=== PATIENT | female | born 1960 | race Caucasian/White ===

== ENCOUNTER → 2017-09-06 10:43 | Outpatient (CLI) | payer MEDICARE, SELFPAY ==
[2017-09-06 13:12] LABS: Absolute Lymphocyte Count 1.59 X10^3/ul (0.83-4.51); Absolute Neutrophil Count 5.7 X10^3/uL (2.0-7.7); Basophil# 0.02 X10^3/uL; Basophil% 0.3 % (0-1); Eosinophil# 0.03 X10^3/uL; Eosinophils% 0.4 % (0-5); Hematocrit 39.4 % (37-47); Hemoglobin 11.4 g/dl (12.0-15.0); Lymphocyte # 1.59 X10^3/ul (4.0); Lymphocyte % 20.2 % (19-41); Mean Corp Hgb Conc 28.9 g/gl (32-36); Mean Corpuscular Hgb 21.2 pg (27.0-32.0); Mean Corpuscular Volume 73.1 fL (81-99); Mean Platelet Vol. 10.4 fl (6.2-12.0); Monocyte# 0.58 X10^3/uL; Monocyte% 7.4 % (0-10); Neutrophil # 5.65 X10^3/uL (2.7-7.7); Neutrophil % 71.4 % (47-70); Platelet Count 316 K/mm3 (150-450); RBC Distribution Width CV 18.9 % (11.6-14.6); RBC Distribution Width SD 49.1 fl (35.1-43.9); Red Blood Count 5.39 M/mm3 (4.2-5.4); White Blood Count 7.9 K/mm3 (4.4-11.0)
[2017-09-06 13:15] LABS: Differential Indicated SCAN CRITERIA MET; POSITIVE COUNT NO; POSITIVE DIFFERENTIAL NO; POSITIVE MORPHOLOGY YES
[2017-09-06 13:25] LABS: Vitamin D,25 Hydroxy 23.6 ng/mL (19.95-100.01)
[2017-09-06 13:30] LABS: ALB/GLOB Ratio 0.9 RATIO (0.9-2.4); AST(SGOT) 12 U/L (15-37); Alanine Aminotransfer ALT/SGPT 27 U/L (13-56); Albumin, Serum 3.6 g/dL (3.2-5.0); Alkaline Phosphatase 100 U/L (45-117); Anion Gap 8 (5-15); BUN 11 mg/dL (7-18); BUN/Creat Ratio 18.1 RATIO (10-20); Calcium,Total 8.8 mg/dL (8.5-10.1); Chloride 104 mmol/L (98-107); Creatinine, Serum 0.61 mg/dL (0.55-1.02); EST Glomerular Filtration Rate 108 mL/min (>60); Est Glom Filt Rate - Afr Amer 131 mL/min (>60); Globulin 3.9 g/dL (2.2-4.2); Glucose 89 mg/dL (74-106); Potassium 4.3 mmol/L (3.5-5.1); Protein, Total 7.5 g/dL (6.4-8.2); Sodium Level 139 mmol/L (136-145); Thyroid Stim Hormone (TSH) 1.12 uIU/mL (0.358-3.74)
[2017-09-06 13:40] LABS: Microcytosis 1+; Polychromasia RARE
[2017-09-08 08:51] LABS: Hep C Antibodies <0.1 s/co ratio (0.0-0.9)
== END ==
PROVIDERS: Family Provider Family Medicine Geriatric Medicine; PCP Family Medicine Geriatric Medicine; Visit Provider Family Medicine Geriatric Medicine
DX: E11.9 Type 2 diabetes mellitus without complications (principal); I10 Essential (primary) hypertension; E55.9 Vitamin D deficiency, unspecified; Z13.89 Encounter for screening for other disorder
CPT/HCPCS: 36415; 80053; 82306; 84443; 85025; 86803

== ENCOUNTER → 2017-12-05 13:53 | Outpatient (CLI) | payer MEDICARE, SELFPAY ==
[2017-12-05 17:02] LABS: Absolute Lymphocyte Count 0.96 X10^3/ul (0.83-4.51); Absolute Neutrophil Count 9.8 X10^3/uL (2.0-7.7); Basophil# 0.01 X10^3/uL; Basophil% 0.1 % (0-1); Eosinophil# 0.02 X10^3/uL; Eosinophils% 0.2 % (0-5); Hematocrit 35.5 % (37-47); Lymphocyte # 0.96 X10^3/ul (4.0); Lymphocyte % 8.5 % (19-41); Mean Corp Hgb Conc 28.2 g/gl (32-36); Mean Corpuscular Hgb 20.1 pg (27.0-32.0); Mean Corpuscular Volume 71.3 fL (81-99); Monocyte# 0.57 X10^3/uL; Neutrophil # 9.75 X10^3/uL (2.7-7.7); Neutrophil % 86.1 % (47-70); Platelet Count 192 K/mm3 (150-450); RBC Distribution Width CV 18.9 % (11.6-14.6); RBC Distribution Width SD 49.8 fl (35.1-43.9); Red Blood Count 4.98 M/mm3 (4.2-5.4); White Blood Count 11.3 K/mm3 (4.4-11.0)
[2017-12-05 17:03] LABS: Differential Indicated SCAN CRITERIA MET; Mean Platelet Vol. 10.9 fl (6.2-12.0); POSITIVE COUNT NO; POSITIVE DIFFERENTIAL NO; POSITIVE MORPHOLOGY YES
[2017-12-05 17:19] LABS: ALB/GLOB Ratio 1.1 RATIO (0.9-2.4); AST(SGOT) 19 U/L (15-37); Alanine Aminotransfer ALT/SGPT 35 U/L (13-56); Albumin, Serum 3.6 g/dL (3.2-5.0); Alkaline Phosphatase 80 U/L (45-117); Anion Gap 10 (5-15); BUN 12 mg/dL (7-18); BUN/Creat Ratio 18.6 RATIO (10-20); Calcium,Total 8.6 mg/dL (8.5-10.1); Chloride 107 mmol/L (98-107); Creatinine, Serum 0.65 mg/dL (0.55-1.02); EST Glomerular Filtration Rate 101 mL/min (>60); Est Glom Filt Rate - Afr Amer 122 mL/min (>60); Globulin 3.4 g/dL (2.2-4.2); Glucose 111 mg/dL (74-106); Potassium 3.8 mmol/L (3.5-5.1); Sodium Level 141 mmol/L (136-145); Thyroid Stim Hormone (TSH) 0.52 uIU/mL (0.358-3.74)
[2017-12-05 17:29] LABS: Differential Comment SCANNED
== END ==
PROVIDERS: Family Provider Family Medicine Geriatric Medicine; PCP Family Medicine Geriatric Medicine; Visit Provider Family Medicine Geriatric Medicine
DX: E11.9 Type 2 diabetes mellitus without complications (principal); I10 Essential (primary) hypertension
CPT/HCPCS: 36415; 80053; 84443; 85025

== ENCOUNTER 2017-12-11 15:02 | Emergency (ER) | payer MEDICARE, SELFPAY ==
[2017-12-11 15:03] VITALS: BP 112/58; PULSE 88; PULSE 91; RESP 18; TEMP 37.4; O2SAT 94; O2SAT 96; BMI 31.8
--- NOTE | 2017-12-11 15:34 | RAD_ITS ---
STUDY: X-RAY - UNILATERAL RIBS ( RIGHT ) WITH CHEST REASON FOR EXAM: Female, 57 years old. Right flank pain after falling. TECHNIQUE - RIBS: 4 view(s) of the ribs. TECHNIQUE - CHEST: 1 view COMPARISON: Prior chest radiograph of July 27, 2016 and July 25, 2016 FINDINGS - RIBS: Normal visualized ribs without a demonstrated acute fracture. FINDINGS - CHEST: The lungs are clear and expanded. There is no demonstrated pleural abnormality. Normal size heart. Normal mediastinum and danita. Normal visualized pulmonary arteries. There is atherosclerotic calcification of the aortic arch with tortuosity. Old right humeral neck fracture deformity. There is no demonstrated abnormality of the visualized soft tissue structures of the upper abdomen. RAD/Ribs Uni Min 3V w/PA Chest IMPRESSION: RIBS: No acute rib fracture. Old right humeral neck fracture deformity. CHEST: No acute cardiopulmonary findings or changes. Electronically Signed: Gabby Paniagua MD at 16:27 EDT , Service support ,
--- NOTE | 2017-12-11 15:34 | CT_ITS ---
STUDY: CT CERVICAL SPINE WITHOUT CONTRAST REASON FOR EXAM: Female, 57 years old. Falling injury hitting the back of the head. RADIATION DOSAGE (If Supplied By Facility): CTDIvol = ( 29.54 ) mGy, DLP = ( 557.40 ) mGycm TECHNIQUE: High resolution transaxial imaging was performed without contrast material. Sagittal and coronal images were reconstructed. Individualized dose optimization techniques were used for this CT. COMPARISON: Prior cervical CT exam of March 17, 2016. FINDINGS: Normal craniovertebral junction. Normal anterior atlantoaxial articulation. Normal odontoid process. Normal cervical lordosis. Normal vertebral bodies and posterior osseous elements. C2-3: Minor degenerative disc and joint changes. Slight central disc bulge. Negative for spinal stenosis or foraminal narrowing. C3-4: Mild disc narrowing and uncovertebral arthrosis. Negative for central stenosis. Mild bilateral foraminal narrowing. C4-5: Minor degenerative disc and joint changes without central stenosis. Mild foraminal narrowing on the right. C5-6: Mild degenerative disc and joint changes. Negative for central stenosis. Mild foraminal narrowing on the right. C6-7: Minor degenerative disc and joint changes without substantial foraminal narrowing or central stenosis. C7-T1: Normal endplates. Normal disc height and morphology. Normal central canal and intervertebral neuroforamina. Prior fracture of the medial right clavicle. CT/Spine Cervical without Contras IMPRESSION: Normal alignment of the cervical spine without acute fracture deformity. Degenerative disc and joint changes as described above. Electronically Signed: Gabby Paniagua MD at 16:44 EDT , Service support ,
--- NOTE | 2017-12-11 15:34 | CT_ITS ---
STUDY: CT BRAIN WITHOUT CONTRAST REASON FOR EXAM: Female, 57 years old. The patient fell and hit the back of her head. RADIATION DOSAGE (If Supplied By Facility): CTDIvol = ( 60.81 ) mGy, DLP = ( 1112.69 ) mGycm TECHNIQUE: Transaxial CT imaging of the brain was performed without administration of intravenous contrast material. Individualized dose optimization techniques were used for this CT. COMPARISON: Prior brain CT exam of July 25, 2016 FINDINGS: Normal soft tissue structures. Normal calvarium. Normal size ventricles and extra-axial spaces for the patient's age. 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 Normal basal ganglia and thalami. Normal brainstem. Normal cerebellum. There is no intracranial hemorrhage. There are no findings of an acute ischemic infarction. Normal visualized paranasal sinuses. CT/Brain/Head without Contrast IMPRESSION: No acute intracranial findings. Negative for hemorrhage, hematoma or mass density. Stable medial left parietal infarct. Electronically Signed: Gabby Paniagua MD at 16:36 EDT , Service support ,
--- NOTE | 2017-12-11 15:40 | ED.DCSUM_ITS ---
- ER Visit Summary Date of Service: 12/11/17 Chief Complaint: Fall History of Present Illness: The patient is a 57 F who fell prior to arrival. 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 She was getting out of a car and fell in the parking lot secondary to weakness. She is not sure if she lost consciousness, but she does remember everything leading up to the fall. She remembers someone telling her to be still while she was laying on the ground. She complains of pain to the back of her head and her neck. She also points of right-sided rib pain. Denies any other associated symptoms. She does take aspirin and Plavix. Physical Examination: Afebrile and vital signs unremarkable. Patient is alert and oriented and in no acute distress. Head and neck have a normal inspection. She does have occipital tenderness diffusely and neck tenderness diffusely. Head otherwise atraumatic. Lungs clear. Heart regular. Abdomen soft and nontender. She does have some right lateral chest wall tenderness. No crepitus or abnormal motion noted. Extremities atraumatic. She has chronic right-sided weakness at baseline per patient and no new weakness or sensory changes on exam. Test Results: CT head and neck pending. Chest x-ray and rib series pending. Emergency Department Course and Treatment: Declined pain medicine while awaiting results. Rib and chest x-ray showed no acute abnormalities. Nothing new. CT head and neck showed nothing new. Just chronic changes. Patient did have increasing pain and was treated with [place] while awaiting results. No other imaging or diagnostic studies are indicated. The patient will be discharged. Rest, ice, elevate. Anti-inflammatories and home pain medications. Follow-up with primary care. Return for any new or worsening issues. Treatment Plan: As above Disposition: Discharged Impression: 1. Closed head injury 2. Cervical strain 3. Chest wall pain right side This note was generated with [employer] dictation software. It may contain incorrect words, spelling, and punctuation that were not noted in review of the chart prior to signing ED Disposition - Plan for ED Patient: Chief Complaint: Fall Referrals: Ruddy Brandt Chi, MD [Primary Care Provider] -
--- NOTE | 2017-12-11 17:01 | ED.DEP ---
ED Disposition - Plan for ED Patient: Chief Complaint: Fall Instructions: ED Mechanical Fall Referrals: Ruddy Brandt Chi, MD [Primary Care Provider] -
[2017-12-11] MEDS: HYDROcodone Bitartrate/Apap 5/325 Tablet PO (17:17)
[2017-12-11 17:18] VITALS: BP 118/66; PULSE 84; PULSE 88; RESP 18; O2SAT 93
== END 2017-12-11 17:49 | disposition home or self-care (01) ==
PROVIDERS: Emergency Provider Emergency Medicine; Family Provider Family Medicine Geriatric Medicine; PCP Family Medicine Geriatric Medicine
DX: S09.90XA Unspecified injury of head, initial encounter (principal); W18.39XA Other fall on same level, initial encounter; Y93.89 Activity, other specified; Y92.481 Parking lot as the place of occurrence of the external cause; S16.1XXA Strain of muscle, fascia and tendon at neck level, initial encounter; R07.89 Other chest pain; I69.351 Hemiplegia and hemiparesis following cerebral infarction affecting right dominant side; I10 Essential (primary) hypertension; J45.909 Unspecified asthma, uncomplicated; E78.00 Pure hypercholesterolemia, unspecified; K21.9 Gastro-esophageal reflux disease without esophagitis; F20.9 Schizophrenia, unspecified; Z79.82 Long term (current) use of aspirin; Z79.01 Long term (current) use of anticoagulants; Z79.4 Long term (current) use of insulin; Z79.899 Other long term (current) drug therapy; Z72.0 Tobacco use
CPT/HCPCS: 70450; 71101; 72125; 99285

== ENCOUNTER → 2017-12-25 15:20 | Outpatient (CLI) | payer MEDICARE, SELFPAY ==
[2017-12-25 16:17] LABS: Absolute Lymphocyte Count 1.29 X10^3/ul (0.83-4.51); Absolute Neutrophil Count 9.7 X10^3/uL (2.0-7.7); Basophil# 0.02 X10^3/uL; Basophil% 0.2 % (0-1); Eosinophil# 0.04 X10^3/uL; Eosinophils% 0.3 % (0-5); Hemoglobin 10.4 g/dl (12.0-15.0); Lymphocyte # 1.29 X10^3/ul (4.0); Lymphocyte % 10.9 % (19-41); Mean Corp Hgb Conc 28.1 g/gl (32-36); Mean Corpuscular Hgb 19.7 pg (27.0-32.0); Mean Corpuscular Volume 70.2 fL (81-99); Mean Platelet Vol. 10.4 fl (6.2-12.0); Monocyte# 0.76 X10^3/uL; Monocyte% 6.4 % (0-10); Neutrophil # 9.72 X10^3/uL (2.7-7.7); Platelet Count 255 K/mm3 (150-450); Red Blood Count 5.27 M/mm3 (4.2-5.4); White Blood Count 11.9 K/mm3 (4.4-11.0)
[2017-12-25 16:18] LABS: Differential Indicated SCAN CRITERIA MET; POSITIVE COUNT NO; POSITIVE DIFFERENTIAL NO; POSITIVE MORPHOLOGY YES
== END ==
PROVIDERS: Family Provider Family Medicine Geriatric Medicine; PCP Family Medicine Geriatric Medicine; Visit Provider Family Medicine Geriatric Medicine
DX: R53.83 Other fatigue (principal)
CPT/HCPCS: 36415; 85025

== ENCOUNTER → 2018-01-10 14:35 | Outpatient (CLI) | payer MEDICARE, SELFPAY ==
--- NOTE | 2018-01-10 14:41 | CT_ITS ---
STUDY: CT MAXILLOFACIAL SINUSES REASON FOR EXAM: Female, 57 years old. Sinusitis RADIATION DOSAGE (If Supplied By Facility): CTDIvol = ( 33.06 ) mGy, DLP = ( 800.79 ) mGycm TECHNIQUE: The patient was scanned in a multi detector CT scanner. High resolution axial imaging was performed without the administration of intravenous contrast material. Sagittal and coronal images were reconstructed. Individualized dose optimization techniques were used for this CT. COMPARISON: CT head December 11, 2017 FINDINGS: FRONTAL SINUSES: Is a diminutive right frontal sinus remaining which appears confluent with the right-sided ethmoid sinuses. ETHMOIDAL SINUSES: Normal aeration, without mucosal inflammatory disease. MAXILLARY SINUSES: Normal aeration, without mucosal inflammatory disease. SPHENOIDAL SINUSES: Normal aeration, without mucosal inflammatory disease. There is patency of the bilateral maxillary infundibuli with normal uncinate processes, ethmoid bullae, and hiatus semilunaris. Normal bilateral middle turbinates. Normal bilateral inferior turbinates. Normal midline nasal septum. There is patency of the bilateral nasal airways. The visualized osseous structures are normal. The visualized bilateral orbital contents are normal. There is atherosclerotic calcifications of the bilateral carotid arteries. As the visualized right side decorative nasal ring. There is degenerative change at the visualized levels C2-C3. The teeth are absent. CT/Sinus/Facial Bone IMPRESSION: No significant sinusitis, similar to prior study. Electronically Signed: Salma Blanton MD at 15:18 EDT Tel , Service support ,
== END ==
PROVIDERS: Family Provider Family Medicine Geriatric Medicine; PCP Family Medicine Geriatric Medicine; Visit Provider Otolaryngology
DX: J32.9 Chronic sinusitis, unspecified (principal)
CPT/HCPCS: 70486

== ENCOUNTER 2018-01-13 09:39 | Emergency (ER) | payer MEDICARE, SELFPAY ==
[2018-01-13 09:39] VITALS: BP 143/76; PULSE 91; RESP 16; TEMP 36.2; O2SAT 97; BMI 36.3
--- NOTE | 2018-01-13 09:56 | EKG12_ITS ---
Test Reason : DIZZY/CP Blood Pressure : / mmHG Vent. Rate : 092 BPM Atrial Rate : 092 BPM P-R Int : 134 ms QRS Dur : 088 ms QT Int : 360 ms P-R-T Axes : 057 -05 030 degrees QTc Int : 445 ms Normal sinus rhythm Voltage criteria for left ventricular hypertrophy Abnormal ECG Confirmed by SHAYY SOARES, NEETA ([id number]), acquisitions editor HUSSEIN ZAPIEN ([id number] on 01/16/2018 2:52:16 PM Referred By: Car Diaz Confirmed By:NEETA LUCAS MD
--- NOTE | 2018-01-13 09:56 | CT_ITS ---
STUDY: CT BRAIN WITHOUT CONTRAST REASON FOR EXAM: Female, 57 years old. History of fall. Chronic dizziness. RADIATION DOSAGE (If Supplied By Facility): CTDIvol = ( 44.99 ) mGy, DLP = ( 812.98 ) mGycm TECHNIQUE: Transaxial CT imaging of the brain was performed without administration of intravenous contrast material. Individualized dose optimization techniques were used for this CT. COMPARISON: Comparison is made with prior study dated December 11, 2017. FINDINGS: Normal soft tissue structures. Normal calvarium. There is mild cerebral atrophy with widening of the extra-axial spaces and ventricular dilatation. There is evidence of encephalomalacia involving the medial aspect of the left parietal and occipital lobes in keeping with prior infarction. Normal basal ganglia and thalami. Normal brainstem. Normal cerebellum. There is no intracranial hemorrhage. There are no findings of an acute ischemic infarction. Mucosal thickening of the ethmoid sinuses as well as the right sphenoid sinus. CT/Brain/Head without Contrast IMPRESSION: Chronic involutional changes of the brain. Stable examination. Electronically Signed: Armando Qureshi MD at 10:38 EDT Tel [phone], Service support ,
--- NOTE | 2018-01-13 09:57 | CT_ITS ---
STUDY: CT CERVICAL SPINE WITHOUT CONTRAST REASON FOR EXAM: Female, 57 years old. Dizziness. History of fall. RADIATION DOSAGE (If Supplied By Facility): CTDIvol = ( 25.87 ) mGy, DLP = ( 541.00 ) mGycm TECHNIQUE: High resolution transaxial imaging was performed without contrast material. Sagittal and coronal images were reconstructed. Individualized dose optimization techniques were used for this CT. COMPARISON: Comparison is made with prior study dated December 11, 2017. FINDINGS: Normal craniovertebral junction. Normal anterior atlantoaxial articulation. Normal odontoid process. Normal cervical lordosis. Normal vertebral bodies and posterior osseous elements. C2-3: Normal endplates. Normal disc height and morphology. Normal central canal and intervertebral neuroforamina. C3-4: Normal endplates. Normal disc height and morphology. Normal central canal and intervertebral neuroforamina. C4-5: Mild degree of disc space narrowing. Facet joint osteoarthritis. C5-6: Mild degree of disc space narrowing. Facet joint osteoarthritis. C6-7: Mild degree of disc space narrowing. Facet joint osteoarthritis. Normal visualized soft tissue structures. CT/Spine Cervical without Contras IMPRESSION: Multilevel degenerative changes, as described above. Electronically Signed: Armando Qureshi MD at 13:53 EDT Tel [phone], Service support ,
--- NOTE | 2018-01-13 09:57 | CT_ITS ---
STUDY: CT ABDOMEN AND PELVIS WITHOUT CONTRAST REASON FOR EXAM: Female, 57 years old. History of fall. RADIATION DOSAGE (If Supplied By Facility): CTDIvol = ( 12.98 ) mGy, DLP = ( 680.98 ) mGycm TECHNIQUE: Transaxial images were obtained from the dome of the diaphragm to the symphysis pubis without oral contrast, and without intravenous contrast. Sagittal and coronal images were reconstructed. Individualized dose optimization techniques were used for this CT. COMPARISON: None. FINDINGS: Mild degree of increased markings in the lingular segment of the left upper lobe as well as in both lower lobes suggestive of scarring. The visualized portions of the heart are within normal limits. Normal liver. There are surgical clips in the gallbladder fossa consistent with a prior cholecystectomy. Normal spleen. Normal pancreas. Normal bilateral adrenal glands. Normal right kidney. Punctate calcification in the posterior cortex of the left kidney. Nonobstructive 2 mm calculus in the midportion of the left kidney. There is a small hiatal hernia. Normal small intestine. Normal colon. There are surgical clips in the region of the appendix consistent with a prior appendectomy. There is diffuse atherosclerotic calcification of the abdominal aorta, without a demonstrated aneurysm. Normal inferior vena cava. There is borderline retroperitoneal lymphadenopathy with enlarged nodes no greater than 10mm in the short axis diameter. Distended urinary bladder. There is absence of the uterus consistent with a prior hysterectomy. There is a left-sided inguinal hernia containing adipose tissue. Small benign-appearing bilateral inguinal lymph nodes. Normal osseous structures. CT/Abdomen/Pelvis without Cont IMPRESSION: Mild increased markings at the lung bases. This is suggestive of scarring. Distended urinary bladder. Electronically Signed: Armando Qureshi MD at 13:16 EDT Tel [phone], Service support ,
--- NOTE | 2018-01-13 10:04 | ED.DCSUM_ITS ---
- ER Visit Summary Date of Service: 01/13/18 Chief Complaint: Fall History of Present Illness: The patient is a 57 F who states that she developed a spinning like dizziness yesterday with history of similar. She fell this morning. She is complaining of neck, back, chest, abdominal, and right hip pain. She denies loss of consciousness. Medication list is reviewed and does include aspirin and Plavix but no other anticoagulants. Physical Examination: Vital signs are unremarkable. Patient is immobilized per EMS. Head neck examination reveals c-collar in place. She does have mild diffuse C- spine tenderness on exam with no step-offs. C-collar remains in place. Heart is regular rate and rhythm. Lung sounds are clear with good air movement bilaterally. Chest wall is nontender. Abdomen is soft with no focal tenderness on examination. Patient is logrolled. She has tenderness to the bilateral lumbar paraspinal muscles. Extremity examination reveals full range of motion. I can logroll both legs without hip tenderness. She has strong distal pulses. Test Results: CT of the head shows chronic involutional changes. CT the C- spine shows degenerative changes. Chest x-ray shows chronic changes only. CT abdomen pelvis shows scarring at the lung bases. There is evidence of a distended bladder. EKG is sinus at 92 with no sign of ischemia. CBC reveals a white count of 11.2 with normal differential. Hemoglobin is 9.4. Chemistry studies are unremarkable. Her glucose is 162. Emergency Department Course and Treatment: Patient has been observed here. There was a delay in getting her images returned so she has been observed for over 4 hours. She is resting comfortably. She easily awakens and states that she does feel improved and wishes to go home. Treatment Plan: [] Disposition: Discharge Impression: 1. Fall 2. Chronic dizziness This note was generated with [employer] dictation software. It may contain incorrect words, spelling, and punctuation that were not noted in review of the chart prior to signing ED Disposition - Plan for ED Patient: Chief Complaint: Fall Referrals: Ruddy Brandt Chi, MD [Primary Care Provider] -
[2018-01-13] MEDS: 0.9% Normal Saline 1,000 ML 150 ML IV (10:07)
[2018-01-13 10:22] LABS: Absolute Lymphocyte Count 1.29 X10^3/ul (0.83-4.51); Basophil# 0.02 X10^3/uL; Basophil% 0.2 % (0-1); Eosinophil# 0.22 X10^3/uL; Hematocrit 33.7 % (37-47); Hemoglobin 9.4 g/dl (12.0-15.0); Lymphocyte # 1.29 X10^3/ul (4.0); Lymphocyte % 11.6 % (19-41); Mean Corp Hgb Conc 27.9 g/gl (32-36); Mean Corpuscular Hgb 19.9 pg (27.0-32.0); Mean Corpuscular Volume 71.2 fL (81-99); Mean Platelet Vol. 9.9 fl (6.2-12.0); Monocyte# 0.63 X10^3/uL; Monocyte% 5.6 % (0-10); Neutrophil # 8.98 X10^3/uL (2.7-7.7); Neutrophil % 80.4 % (47-70); Platelet Count 198 K/mm3 (150-450); RBC Distribution Width CV 19.7 % (11.6-14.6); RBC Distribution Width SD 51.5 fl (35.1-43.9); Red Blood Count 4.73 M/mm3 (4.2-5.4); White Blood Count 11.2 K/mm3 (4.4-11.0)
[2018-01-13 10:24] LABS: Differential Indicated SCAN CRITERIA MET; POSITIVE COUNT NO; POSITIVE DIFFERENTIAL NO; POSITIVE MORPHOLOGY YES
[2018-01-13 10:34] LABS: Anion Gap 7 (5-15); BUN 13 mg/dL (7-18); BUN/Creat Ratio 17.4 RATIO (10-20); Calcium,Total 8.9 mg/dL (8.5-10.1); Chloride 107 mmol/L (98-107); Creatinine, Serum 0.75 mg/dL (0.55-1.02); EST Glomerular Filtration Rate 85 mL/min (>60); Est Glom Filt Rate - Afr Amer 103 mL/min (>60); Estimated Creatinine Clearance 69.28 ml/min; Glucose 162 mg/dL (74-106); Potassium 3.9 mmol/L (3.5-5.1); Sodium Level 141 mmol/L (136-145)
[2018-01-13 10:45] LABS: Anisocytosis 1+; Hypochromasia 1+
[2018-01-13 10:46] LABS: Microcytosis 1+; Ovalocyte 1+
--- NOTE | 2018-01-13 10:55 | RAD_ITS ---
STUDY: X-RAY CHEST REASON FOR EXAM: Female, 57 years old. Shortness of breath after a fall TECHNIQUE: Single AP portable view of the chest. COMPARISON: 07/27/2016 FINDINGS: Lungs remain underexpanded with chronic interstitial changes but no superimposed acute process, or significant interval change There is no demonstrated pleural abnormality. Normal size heart. Normal mediastinum and danita. Normal visualized pulmonary arteries. Normal visualized aortic arch and descending thoracic aorta. Normal visualized thoracic spine. Normal visualized ribs, clavicles, and shoulders. There is no demonstrated abnormality of the visualized soft tissue structures of the upper abdomen. RAD/Chest 1 View (Portable) IMPRESSION: Chronic interstitial changes, no superimposed acute pulmonary process, no significant interval change Electronically Signed: Chico Bocanegra MD at 11:08 EDT , Service support ,
[2018-01-13 12:46] VITALS: BP 146/71; PULSE 78; RESP 14; O2SAT 98
[2018-01-13 14:10] VITALS: BP 120/72; PULSE 87; RESP 12; O2SAT 97
--- NOTE | 2018-01-13 14:25 | ED.DEP ---
ED Disposition - Plan for ED Patient: Disposition: Home or Assisted Living Chief Complaint: Fall Instructions: ED Mechanical Fall, ED Dizziness [facility] Referrals: Ruddy Brandt Chi, MD [Primary Care Provider] - As soon as possible
[2018-01-13 14:40] VITALS: BP 110/61; PULSE 80; RESP 14; O2SAT 96
== END 2018-01-13 14:41 | disposition home or self-care (01) ==
PROVIDERS: Emergency Provider Emergency Medicine; Family Provider Family Medicine Geriatric Medicine; PCP Family Medicine Geriatric Medicine
DX: R42 Dizziness and giddiness (principal); M25.551 Pain in right hip; M54.9 Dorsalgia, unspecified; M54.2 Cervicalgia; R10.9 Unspecified abdominal pain; R07.9 Chest pain, unspecified; N32.89 Other specified disorders of bladder; W18.30XA Fall on same level, unspecified, initial encounter; Y93.9 Activity, unspecified; Y92.9 Unspecified place or not applicable; Y99.9 Unspecified external cause status; E11.9 Type 2 diabetes mellitus without complications; E78.00 Pure hypercholesterolemia, unspecified; K21.9 Gastro-esophageal reflux disease without esophagitis; G89.29 Other chronic pain; I69.959 Hemiplegia and hemiparesis following unspecified cerebrovascular disease affecting unspecified side
CPT/HCPCS: 70450; 71045; 72125; 74176; 80048; 85025; 93005; 99285; J7030

== ENCOUNTER 2018-01-17 18:29 | Emergency (ER) | payer MEDICARE, SELFPAY ==
[2018-01-17 18:29] VITALS: BP 157/64; PULSE 85; RESP 16; TEMP 37; O2SAT 96; BMI 30.9
--- NOTE | 2018-01-17 18:34 | ED.RN ---
PT STATES BEFORE GETTING OFF EMS COT THAT IF THE WAIT IS LONG, I'LL JUST LEAVE. PT ASKS AFTER TRIAGE WHAT THE WAIT WILL BE, INFORMED PT THAT I COULD NOT GIVE HER AN ETA. PT STATES SHE WAS GOING TO CALL HER DAD FOR RIDE HOME.
--- NOTE | 2018-01-17 18:47 | ED.RN ---
pt walking in and out of building.
--- NOTE | 2018-01-17 19:59 | CT_ITS ---
STUDY: CT BRAIN WITHOUT CONTRAST REASON FOR EXAM: Female, 57 years old. Status post fall laceration to head RADIATION DOSAGE (If Supplied By Facility): CTDIvol = ( 44.99 ) mGy, DLP = ( 812.98 ) mGycm TECHNIQUE: Transaxial CT imaging of the brain was performed without administration of intravenous contrast material. Individualized dose optimization techniques were used for this CT. COMPARISON: January 13, 2018, March 17, 2016 CT scan head status post fall FINDINGS: There is a small focus of right posterior parietal soft tissue swelling and gas formation compatible with clinical history of fall with laceration. Normal calvarium. There is mild cerebral atrophy with widening of the extra-axial spaces and ventricular dilatation. There is a persistent band of low attenuation within the left occipital lobe and in the subcortical regions of the left parietal lobe compatible with prior injury or ischemic change Normal basal ganglia and thalami. Normal brainstem. There is mild cerebellar atrophy. There is no intracranial hemorrhage. There are no findings of an acute ischemic infarction. Normal visualized paranasal sinuses. CT/Brain/Head without Contrast IMPRESSION: No visualized evidence of acute hemorrhage infarct or edema. Evidence of remote ischemic change and/or injury in the left occipital lobe and parietal lobe. Right posterior parietal focus of superficial soft tissue swelling and laceration. Electronically Signed: Salma Blanton MD at 20:34 EDT Tel , Service support ,
--- NOTE | 2018-01-17 19:59 | CT_ITS ---
STUDY: CT CERVICAL SPINE WITHOUT CONTRAST REASON FOR EXAM: Female, 57 years old. Status post fall RADIATION DOSAGE (If Supplied By Facility): CTDIvol = ( 24.47 ) mGy, DLP = ( 471.98 ) mGycm TECHNIQUE: High resolution transaxial imaging was performed without contrast material. Sagittal and coronal images were reconstructed. The study is limited, the axial images are obtained at diagonal to the disc spaces. A Individualized dose optimization techniques were used for this CT. COMPARISON: December 11, 2017 CT scan cervical spine status post fall FINDINGS: Normal craniovertebral junction. Normal anterior atlantoaxial articulation. Normal odontoid process. There is straightening of the normal cervical lordosis. Normal vertebral bodies and posterior osseous elements. C2-3: Normal endplates. Normal disc height and morphology. Normal central canal and intervertebral neuroforamina. C3-4: Normal endplates. Normal disc height and morphology. Normal central canal and intervertebral neuroforamina. C4-5: There is right greater than left facet arthropathy. There is mild neural foraminal narrowing no significant central stenosis. C5-6: There are minimal endplate changes. There is no significant neural foraminal narrowing or central stenosis. C6-7: Normal endplates. Normal disc height and morphology. Normal central canal and intervertebral neuroforamina. C7-T1: Normal endplates. Normal disc height and morphology. Normal central canal and intervertebral neuroforamina. Normal visualized soft tissue structures. CT/Spine Cervical without Contras IMPRESSION: Mild degenerative change of visualized fracture. Electronically Signed: Salma Blanton MD at 20:30 EDT Tel , Service support ,
[2018-01-17] MEDS: HYDROmorphone 0.5 MG/0.5 ML SYRINGE SC (20:30)
--- NOTE | 2018-01-17 22:31 | ED.VISSUMM ---
- ER Visit Summary Date of Service: 01/17/18 Chief Complaint: Head injury History of Present Illness: The patient is a 57 F who tripped on her feet. She fell from standing hit the back of her head. She complains of pain to the area that radiates down her neck. No nausea or vomiting. No focal weakness or numbness. No other injuries or complaints. Physical Examination: Afebrile and vital signs unremarkable. Patient has a superficial laceration to her right occipital scalp. Otherwise, head is atraumatic. Cranial nerves grossly intact. Neck is diffusely tender to palpation. Heart is regular. Lungs are clear. Abdomen soft and nontender. Legs atraumatic. No focal or lateralizing neurologic abnormalities. Test Results: CT head showed soft tissue swelling and a remote infarct. Nothing acute. Cervical spine CT results did show a typo in the impression, however the actual imaging was negative for any acute fracture or abnormality. Emergency Department Course and Treatment: Patient received a dose of pain medication here. Her imaging showed chronic changes. Nothing acute. Patient was better on reevaluation. Her laceration was cleaned and explored. This was 1 cm in length and partial-thickness. It was closed with 1 staple. The patient tolerated this well. Follow-up in 10 days for removal. Treatment Plan: As above Disposition: Discharged Impression: 1. Closed head injury 2. Scalp lac, 1 cm, stapled This note was generated with [employer] dictation software. It may contain incorrect words, spelling, and punctuation that were not noted in review of the chart prior to signing ED Disposition - Plan for ED Patient: Chief Complaint: Head Injury Referrals: Ruddy Brandt Chi, MD [Primary Care Provider] -
--- NOTE | 2018-01-17 22:34 | ED.DEP ---
ED Disposition - Plan for ED Patient: Chief Complaint: Head Injury Instructions: ED Contusion Scalp Referrals: Ruddy Brandt Chi, MD [Primary Care Provider] -
[2018-01-17 22:54] VITALS: BP 145/88; PULSE 88; RESP 16; O2SAT 97
[2018-01-17 23:49] VITALS: BP 146/84; PULSE 79; RESP 16; O2SAT 97
== END 2018-01-17 23:53 | disposition home or self-care (01) ==
LOC: ED 20:22
PROVIDERS: Emergency Provider Emergency Medicine; Family Provider Family Medicine Geriatric Medicine; PCP Family Medicine Geriatric Medicine
DX: S01.01XA Laceration without foreign body of scalp, initial encounter (principal); W01.198A Fall on same level from slipping, tripping and stumbling with subsequent striking against other object, initial encounter; Y93.9 Activity, unspecified; Y92.89 Other specified places as the place of occurrence of the external cause; Y99.9 Unspecified external cause status; K21.9 Gastro-esophageal reflux disease without esophagitis; E11.9 Type 2 diabetes mellitus without complications; E78.00 Pure hypercholesterolemia, unspecified; F20.9 Schizophrenia, unspecified; Z72.0 Tobacco use
CPT/HCPCS: 12001; 70450; 72125; 96372; 99284

== ENCOUNTER 2018-01-21 11:36 | Emergency (ER) | payer MEDICARE, SELFPAY ==
[2018-01-21 11:38] VITALS: BP 144/76; PULSE 103; RESP 16; TEMP 36.8; O2SAT 94; BMI 31.8
--- NOTE | 2018-01-21 12:20 | RAD_ITS ---
STUDY: X-RAY - LUMBAR SPINE REASON FOR EXAM: Female, 57 years old. Chronic low back pain. TECHNIQUE: AP and lateral flexion extension view(s) of the lumbar spine were obtained. COMPARISON: None FINDINGS: Normal lumbar lordosis. There is no substantial scoliosis. There is a normal alignment of the vertebrae. Normal vertebral bodies and endplates. There is multi-level degenerative disc disease with multi-level disc space narrowing. Facet joint osteoarthritis. Electrodes from a TENS unit are seen. RAD/Lumbar Spine 2 or 3 Views IMPRESSION: Disc space narrowing at the L3-L4, L4-L5 and L5-S1 levels. Facet joint osteoarthritis. Electronically Signed: Armando Qureshi MD at 13:13 EDT Tel [phone], Service support ,
--- NOTE | 2018-01-21 12:40 | RAD_ITS ---
STUDY: X-RAY - PELVIS REASON FOR EXAM: Female, 57 years old. Lower extremity pain. TECHNIQUE: One view of the pelvis was obtained. COMPARISON: None. FINDINGS: A TENS unit is seen overlying the right iliac bone. Normal visualized soft tissue structures. There is narrowing with cortical sclerosis and osteophyte formation of the sacroiliac joint consistent with degenerative osteoarthritic changes. Normal visualized bilateral superior and inferior pubic rami. There are degenerative changes of the pubic symphysis with articular narrowing and sclerosis. Normal ischial tuberosities. Normal visualized right femoral head. There is osteoarthritic spur formation of the right acetabular rim. There is mild articular joint space narrowing of the right hip. Normal visualized left femoral head. Normal left acetabulum. There is mild articular joint space narrowing of the left hip. RAD/Pelvis 1 or 2 Views IMPRESSION: Degenerative changes. Electronically Signed: Armando Qureshi MD at 13:14 EDT Tel [phone], Service support ,
--- NOTE | 2018-01-21 13:39 | ED.DCSUM_ITS ---
- ER Visit Summary Date of Service: 01/21/18 Chief Complaint: Back pain History of Present Illness: The patient is a 57 F who states that several days ago she fell and struck her head and had a stitch placed. States the next day she began have pain in her low back and pain in her hips. Patient has a history of diabetes and schizophrenia. She states that she feels fire into her legs. She does not have any bowel or bladder dysfunction weakness or numbness. She denies any IV drug use. No rashes. She is requesting an x-ray. Physical Examination: Afebrile vital signs stable Gen: Well-nourished well-developed Head: Normocephalic atraumatic Eyes: Perrl EOMI ENT: TMs clear no rhinorrhea moist mucous membranes Neck: Supple no lymphadenopathy no JVD nontender CVS: Regular rate rhythm no murmurs normal S1-S2 Respiratory: No distress clear to auscultation bilaterally chest nontender Abdomen: Soft nontender nondistended normal bowel sounds no masses Back: Palpation of the lumbar paraspinal musculature and in the midline. There is no obvious deformity. There is no rashes. Extremity: Nontender no edema Skin: Normal color no rash Neuro: alert orientated ?3 CN II-XII intact normal strength sensation reflexes gait cerebellar Psych: Normal affect normal mood Test Results: Lumbar and pelvis films were negative for fracture. Emergency Department Course and Treatment: I will write the patient have naproxen. She will use heat and rest. Return if worsening or concerns. Impression: 1. Lumbar muscle strain This note was generated with [employer] dictation software. It may contain incorrect words, spelling, and punctuation that were not noted in review of the chart prior to signing ED Disposition - Plan for ED Patient: Disposition: Home or Assisted Living Chief Complaint: Back Instructions: ED Sprain Strain Lumbar Prescriptions: Naproxen [Naprosyn] 500 mg PO BID PRN #20 tab Referrals: Ruddy Brandt Chi, MD [Primary Care Provider] - 1 Week if not improving
[2018-01-21 14:31] VITALS: BP 128/77; PULSE 56; RESP 15; O2SAT 98
== END 2018-01-21 14:32 | disposition home or self-care (01) ==
PROVIDERS: Emergency Provider Emergency Medicine; Family Provider Family Medicine Geriatric Medicine; PCP Family Medicine Geriatric Medicine
DX: S39.012A Strain of muscle, fascia and tendon of lower back, initial encounter (principal); W18.00XA Striking against unspecified object with subsequent fall, initial encounter; Y93.9 Activity, unspecified; Y92.89 Other specified places as the place of occurrence of the external cause; Y99.9 Unspecified external cause status; E11.9 Type 2 diabetes mellitus without complications; E78.00 Pure hypercholesterolemia, unspecified; K21.9 Gastro-esophageal reflux disease without esophagitis; Z72.0 Tobacco use; F20.9 Schizophrenia, unspecified
CPT/HCPCS: 72100; 72170; 99284

== ENCOUNTER 2018-01-22 21:14 | Inpatient (IN) | payer MEDICARE, SELFPAY ==
[2018-01-22] VITALS (7 sets, daily range): BP systolic 105–132; BP diastolic 60–65; PULSE 92–99; RESP 14–19; TEMP 36.9; O2SAT 85–95; BMI 32.8
--- NOTE | 2018-01-22 22:24 | EKG12_ITS ---
Test Reason : SOB Blood Pressure : / mmHG Vent. Rate : 093 BPM Atrial Rate : 093 BPM P-R Int : 138 ms QRS Dur : 090 ms QT Int : 370 ms P-R-T Axes : 050 -07 035 degrees QTc Int : 460 ms Normal sinus rhythm Voltage criteria for left ventricular hypertrophy Abnormal ECG Confirmed by SHAYY SOARES, NEETA ([id number]), image editor HUSSEIN ZAPIEN ([id number]) on 01/28/2018 2:33:44 PM Referred By: RICKEY Confirmed By:NEETA LUCAS MD
--- NOTE | 2018-01-22 22:35 | RAD_ITS ---
STUDY: X-RAY CHEST REASON FOR EXAM: Female, 57 years old. Back pain TECHNIQUE: Single AP portable view of the chest. COMPARISON: 01-13-18. FINDINGS: The lungs are clear and expanded. There is no demonstrated pleural abnormality. Normal size heart. Normal mediastinum and danita. Normal visualized pulmonary arteries. Normal visualized aortic arch and descending thoracic aorta. Normal visualized thoracic spine. Normal visualized ribs, clavicles, and shoulders. There is no demonstrated abnormality of the visualized soft tissue structures of the upper abdomen. RAD/Chest 1 View (Portable) IMPRESSION: No acute cardiopulmonary disease. Electronically Signed: John Bo DO at 23:01 EDT , Service support ,
[2018-01-22] MEDS: oxyCODONE 5 MG Tablet PO (22:38)
[2018-01-22 23:08] LABS: Absolute Lymphocyte Count 0.76 X10^3/ul (0.83-4.51); Absolute Neutrophil Count 10.2 X10^3/uL (2.0-7.7); Basophil# 0.02 X10^3/uL; Basophil% 0.2 % (0-1); Eosinophil# 0.14 X10^3/uL; Eosinophils% 1.2 % (0-5); Hematocrit 34.3 % (37-47); Hemoglobin 9.7 g/dl (12.0-15.0); Lymphocyte # 0.76 X10^3/ul (4.0); Lymphocyte % 6.4 % (19-41); Mean Corp Hgb Conc 28.3 g/gl (32-36); Mean Corpuscular Volume 70.9 fL (81-99); Monocyte# 0.76 X10^3/uL; Monocyte% 6.4 % (0-10); Neutrophil # 10.18 X10^3/uL (2.7-7.7); Neutrophil % 85.7 % (47-70); POSITIVE COUNT NO; POSITIVE DIFFERENTIAL NO; Platelet Count 247 K/mm3 (150-450); RBC Distribution Width CV 20.2 % (11.6-14.6); RBC Distribution Width SD 51.3 fl (35.1-43.9); Red Blood Count 4.84 M/mm3 (4.2-5.4); White Blood Count 11.9 K/mm3 (4.4-11.0)
[2018-01-22 23:09] LABS: Differential Indicated SCAN CRITERIA MET; POSITIVE MORPHOLOGY YES
[2018-01-22 23:16] LABS: Anion Gap 7 (5-15); BUN 10 mg/dL (7-18); BUN/Creat Ratio 18.5 RATIO (10-20); Calcium,Total 8.6 mg/dL (8.5-10.1); Chloride 109 mmol/L (98-107); Creatinine, Serum 0.54 mg/dL (0.55-1.02); EST Glomerular Filtration Rate 124 mL/min (>60); Est Glom Filt Rate - Afr Amer 150 mL/min (>60); Estimated Creatinine Clearance 96.23 ml/min; Glucose 143 mg/dL (74-106); Potassium 3.4 mmol/L (3.5-5.1); Sodium Level 143 mmol/L (136-145)
[2018-01-22 23:36] LABS: Differential Comment SCANNED
[2018-01-22 23:37] LABS: Hypochromasia 2+; Microcytosis 2+; Ovalocyte RARE
[2018-01-22] MEDS: Albuterol 2.5 MG/3 ML VIAL.NEB. INHALATION ×2 (23:40→23:45)
[2018-01-22] MEDS: Ipratropium/Albuterol Sulfate 3 ML AMPUL.NEB INHALATION (23:40)
[2018-01-23] VITALS (17 sets, daily range): BP systolic 111–169; BP diastolic 58–73; PULSE 66–98; RESP 15–16; TEMP 36.7–36.9; O2SAT 91–99; BMI 31.1; BMI 31.2
[2018-01-23] MEDS: MethylPREDNISolone 125 MG/2 ML Vial 60 MG IV (00:16)
--- NOTE | 2018-01-23 00:43 | ED.VISSUMM ---
- ER Visit Summary Date of Service: 01/23/18 Chief Complaint: Hip pain History of Present Illness: The patient is a 57 F who presents with chief complaint of bilateral hip pain and burning pain radiating down her legs. She has a history of frequent falls. She does have a history of prior stroke. She was seen 4 days ago after a fall. She then returned due to lower back pain and had normal lumbar x-rays. She actually came in today because of continued burning pain radiating down both her legs. She does have a history of degenerative disc disease disc rupture. However in triage she was noted to have a pulse ox of 85%. She is not dyspneic. She does note that she has a history of COPD and cough. Physical Examination: Afebrile initial pulse ox 85% on room air vitals otherwise normal Moist mucous membrane Heart regular rate and rhythm Bilateral rhonchi Abdomen soft Extremities nontender 5 out of 5 dorsiflexion, plantarflexion, extensor hallucis longus brisk capillary refill normal sensation to light touch Alert and oriented Test Results: EKG shows sinus rhythm at a rate of 93. CBC BMP troponin unremarkable. Chest x-ray shows no acute process. Emergency Department Course and Treatment: Patient was given a oxycodone for her back and leg pain. She was given albuterol and Atrovent aerosols. I suspect this is related to her COPD. She remains at 92-94% on nasal cannula. She was discussed with the hospitalist and admitted. She was also given 60 mg of Solu-Medrol. Treatment Plan: [] Disposition: Admit Impression: Acute hypoxic respiratory failure COPD exacerbation This note was generated with [employer] dictation software. It may contain incorrect words, spelling, and punctuation that were not noted in review of the chart prior to signing ED Disposition - Plan for ED Patient: Chief Complaint: Shortness of Breath Referrals: Ruddy Brandt Chi, MD [Primary Care Provider] -
--- NOTE | 2018-01-23 00:56 | PCM.HP.STD ---
Problem List (1) COPD (chronic obstructive pulmonary disease) Status: Chronic (2) History of stroke Status: Chronic (3) Diabetes mellitus Status: Chronic (4) Hyperlipidemia Status: Chronic (5) Esophageal reflux Status: Chronic (6) History of tobacco use Status: Chronic (7) Schizophrenia Status: Chronic (8) Chronic pain Status: Chronic History of Present Illness Date of Admission: 01/23/18 Chief Complaint: Bilateral hip pain, bilateral thigh and leg pain. The patient is a 57 year old F with past medical history as mentioned above presented to the emergency room because of bilateral hip pain and bilateral lower extremity pain that has been going on for 4 days. According to the patient, her symptoms started around 4 days ago with pain starts from her waist and both hips, radiates down to both eyes as well as both legs, dull aching pain, 7 out of 10 in severity, associated with burning sensation and tingling of both legs as well as frequent falls and without aggravating or relieving factors. She lives at the assisted living and she has been following more frequently because she cannot ambulate by use of her cane. She denied significant trauma because of her recurrent falls. She denied focal leg weakness but she reported that her both legs are weak. She denied bladder or stool incontinence. She complains of dry cough and increasing shortness of breath over the last few days. During my physical examination, she had tenderness on her right leg and when I asked her, she did complain of right leg pain that has been going on for a few days. She came to the emergency department on January 13, 2018 because of fall. She had CT scan cervical spine, CT scan brain as well as CT scan abdomen and pelvis that was unremarkable without acute findings. She is returning back to ED on January 17, 2018 for head injury due to mechanical fall and CT scan brain as well as CT scan of cervical spine done and they were unremarkable. She had lumbar spine x-ray and pelvis x-ray ordered by his PCP and that was done on January 21, 2018. Lumbar spine x-ray revealed disc space narrowing at L3-L4, L4-L5 and L5-S1. X-ray of the pelvis done the same day and showed no acute findings. This patient has a history of chronic back pain status post insertion of pain pump and she has been seeing who saw her recently. In the emergency department, she was afebrile, blood pressure and heart rate were stable but her pulse oximeter was 85% on room air. Her routine blood work was remarkable for mild leukocytosis, hemoglobin of 9.7 g/dL and potassium 3.4, otherwise normal. Troponin was negative. EKG revealed normal sinus rhythm without evidence of acute ischemic changes or cardiac arrhythmias. Chest x-ray showed no acute findings. She is being admitted for acute on chronic low back pain/lower extremity pain, frequent falls, physical debility and functional decline as well as hypoxia due to probable acute COPD exacerbation and anemia. Past Medical History Past Medical History (Chronic Problems): Chronic Problems (Last Reviewed 06/28/17 @ 12:57 by Coretta Pino) COPD (chronic obstructive pulmonary disease) (Chronic) History of stroke (Chronic) Diabetes mellitus (Chronic) Hyperlipidemia (Chronic) Esophageal reflux (Chronic) History of tobacco use (Chronic) Schizophrenia (Chronic) Chronic pain (Chronic) Medical History: Medical History (Last Reviewed 06/28/17 @ 12:57 by Coretta Pino) Cerebral vascular disease I67.9 Hypertension I10 Insomnia G47.00 Mild asthma J45.998 Neuralgia and neuritis M79.2 Spondylosis M47.9 Allergies Iodinated Contrast- Oral and IV Dye [Iodinated Contrast Media - IV Dye] Allergy (Verified 01/22/18 21:20) Hives amoxicillin trihydrate [From Augmentin] Adverse Reaction (Verified 01/22/18 21:20) Itching hydrocodone [From Vicodin] Adverse Reaction (Verified 01/22/18 21:20) Unknown potassium clavulanate [From Augmentin] Adverse Reaction (Verified 01/22/18 21:20) Itching prednisone Adverse Reaction (Verified 01/22/18 21:20) Unknown shellfish derived Adverse Reaction (Verified 01/22/18 21:20) Itching Home Medications: Ambulatory Orders Medication Instructions Recorded Aspirin [Aspirin, Baby] 81 mg PO DAILY@0800 07/25/16 Atorvastatin Calcium [Lipitor] 80 mg PO QHS 07/25/16 Clopidogrel Bisulfate [Plavix] 75 mg PO DAILY 07/25/16 Dexlansoprazole [Dexilant] 60 mg PO DAILY 07/25/16 Dulaglutide [Trulicity] 1.5 mg SQ FR 07/25/16 Multivitamin with Minerals [Hair, 1 ea PO DAILY 07/25/16 Skin & Nails] Pregabalin [Lyrica] 100 mg PO TID 07/25/16 Insulin Degludec [Tresiba 50 unit SQ DAILY 09/23/16 Flextouch U-100] Cyclosporine [Restasis] 1 drop OP BID 04/08/17 Dapagliflozin/Metformin HCl 1 tablet PO BID 04/08/17 [Xigduo Xr 5 mg-1,000 mg Tablet] Empagliflozin [Jardiance] 25 mg PO DAILY 04/08/17 Oxybutynin Chloride [Ditropan Xl] 10 mg PO DAILY 04/08/17 Sucralfate [Carafate] 1 gm PO TID 04/08/17 Cholecalciferol (VIT D3) [Vitamin 3,000 unit PO DAILY 01/13/18 D3] Cyanocobalamin [Vitamin B12] 1 ml IM QMONTH 01/13/18 Fluoxetine HCl 40 mg PO DAILY 01/13/18 Fluticasone/Vilanterol [Breo 1 inh PO DAILY 01/13/18 Ellipta 200-25 Mcg INH] Lorazepam [Ativan] 2 mg PO TID 01/13/18 Olanzapine [Zyprexa] 7.5 mg PO BID 01/13/18 Naproxen [Naprosyn] 500 mg PO BID PRN #20 tab 01/21/18 Surgical History: Surgical History (Last Reviewed 06/28/17 @ 12:57 by Coretta Pino) S/P right rotator cuff repair Z98.890 11/27/16 Surgical History: appendectomy, cholecystectomy, hysterectomy Psychiatric History: Anxiety, Schizophrenia Lives: Alone Smoking Status: Current every day smoker Tobacco Use: Cigarettes Alcohol: None Drugs: None - *Family History Maternal History Items: No pertinent history Paternal History Items: No pertinent history Review of Systems Constitutional: Reports: Weakness, Fatigue. Denies: Anorexia, Chills, Fever Eyes: Denies: Blurred vision, Double vision, Drainage, Redness HEENT: Denies: Difficulty Hearing, Ear Pain, Eye Pain, Nasal Congestion, Sore Throat Cardiovascular: Denies: Chest Pain, Chest Pressure, Chest Tightness, Heaviness, Light Headedness, Orthopnea, Paroxysmal Noc. Dyspnea, Syncope Respiratory: Reports: Cough, Shortness of Breath, Shortness of breath upon exertion. Denies: Pleuritic Pain, Sputum production, Wheezing Gastrointestinal: Denies: Abdominal Pain, Constipation, Diarrhea, Nausea, Vomiting Genitourinary: Denies: Dysuria, Frequency, Hematuria Musculoskeletal: Reports: Back Pain, Joint Pain, Leg Pain. Denies: Arm Pain Skin: Denies: Dryness, Rash Neurological: Reports: Numbness, Tingling. Denies: Balance problems, Change in Speech, Slurred speech, Confusion, Headaches, Incoordination Psychiatric: Reports: Anxiety. Denies: Depression, Suicidal Ideations Endocrine: Denies: Change in Body Habitus, Polydipsia VTE Information - Inpt Only VTE Present on Admission: No VTE Mechan Device Prophylaxis: None VTE Pharm Prophylaxis ordered?: Yes - Physical Exam General: Alert, Oriented x3, Cooperative, No apparent distress HEENT: Atraumatic, PERRLA, EOMI, Normocephalic Oral: Moist Mucosa, No Gingival or Mucosal Lesions/ Ulcerations Neck: Supple, No JVD, Negative Carotid Bruits, Trachea Midline, Thyroid Normal Size and Texture Lungs: Diminished, Rhonchi, Short of Breath, Wheezes, - - Decreased breath sounds bilateral, bilateral rhonchi, expiratory wheezes. Cardiovascular: Regular rate, Regular Rhythm, Normal S1, Normal S2, No murmurs Abdomen: Bowel Sounds Present, Soft, Non Tender, Non-Distended, No Hepato-splenomegaly Extremities: No clubbing, No cyanosis, Edema - Trace edema on the right leg. Tenderness on the right leg with positive Parveen sign. Skin: No rashes, No breakdown Lymphatic: No Cervical, Supraclavicular, or Inguinal Adenopathy Neurological: Cranial nerves II-XII grossly intact, - - Global weakness, more on lower extremities. Psych/Mental Status: Normal Affect, Appropriate, Alert and oriented to time, place, person, mood and affect Vital Signs Temp Pulse Resp BP Pulse Ox 98.5 F 96 15 118/61 93 01/22/18 21:15 01/23/18 00:18 01/23/18 00:18 01/23/18 00:18 01/23/18 00:18 Oxygen Flow Rate (L/min) 2 Oxygen Delivery Method Nasal Cannula Weight: 185 lb Body Mass Index (BMI) 32.8 Finger Stick Blood Glucose 123 Laboratory Tests Past 24 Hrs 01/22/18 01/22/18 22:45 22:45 WBC 11.9 H RBC 4.84 Hgb 9.7 L Hct 34.3 L MCV 70.9 L MCH 20.0 L MCHC 28.3 L RDW 20.2 H RDW Differential 51.3 H Plt Count 247 MPV 9.0 Immature Gran % (Auto) 0.100 Neut % (Auto) 85.7 H Lymph % (Auto) 6.4 L Pepin % (Auto) 6.4 Eos % (Auto) 1.2 Baso % (Auto) 0.2 Absolute Neuts (auto) 10.2 H Absolute Lymphs (auto) 0.76 L Total Counted Not Reportable Differential Comment SCANNED Hypochromasia 2+ Microcytosis 2+ Ovalocytes RARE Sodium 143 Potassium 3.4 L Chloride 109 H Carbon Dioxide 27.0 Anion Gap 7 BUN 10 Creatinine 0.54 L Estim Creat Clear Calc 96.23 Est GFR (MDRD) Af Amer 150 Est GFR (MDRD) Non-Af 124 BUN/Creatinine Ratio 18.5 Glucose 143 H Calcium 8.6 Troponin I < 0.015 Clinical Impression(s) from Imaging Studies Chest X-Ray 01/22/18 22:35 IMPRESSION: No acute cardiopulmonary disease. Electronically Signed: John Bo DO at 23:01 EDT , Service support , Assessment/Plan This is a 57 year old female patient presented to the emergency room because of back pain, bilateral lower extremity pain, frequent falls, difficulty ambulating, found to be hypoxic in the ER secondary to probable acute COPD exacerbation and also found to have anemia #1 acute on chronic low back pain/bilateral lower extremity pain/frequent falls: With the current ER visits the last few days. She had multiple imaging studies because of fall and injury over the last few days including CT scan brain, CT scan cervical spine, x-ray lumbar spine and x-ray of the pelvis and all of them was unremarkable without fractures or acute findings. Patient has been seeing Dr. Ruelas for pain management and she has pain pump. Plan: Admit to PCU, cardiac monitoring, start IV morphine as needed for pain, OxyIR as needed for pain, continue Lyrica, pain management consult, IV fluids, IV antiemetics, PT OT evaluation and treatment, case management consult because patient probably will need to go to long term facility. #2 physical debility/functional decline/difficulty ambulating: Currently, patient lives at the assisted living and she mentioned that she cannot take care of herself, have been falling frequently with frequent ER visits. Plan as above, pain control, PT OT evaluation and treatment, patient to long term facility. #3 shortness of breath/hypoxia/probable acute COPD exacerbation: She is a big time smoker, does have history of COPD but never been on oxygen. In the ER, her pulse ox was 85% on room air. Improved with oxygen. Chest x-ray showed no acute findings. During physical exam, she complains of right leg pain. Her right leg was swollen, tender to palpation and positive Parveen sign. DVT and PE is in the differential diagnosis. Plan: DuoNeb 6 hours, albuterol as needed, start prednisone, incentive spirometer, ultrasound of the right lower extremity, CTA chest to rule out acute PE, chest physical therapy, wean off oxygen as tolerated. #4 anemia: It is microcytic anemia. Her hemoglobin has been dropping since June,. She denied any bleeding from body orifices. She is on aspirin and Plavix. Plan: Stool for occult blood, serum iron, TIBC, serum ferritin. At this time, no indication for transfusion. #5 type 2 diabetes mellitus: ADA diet, Accu-Cheks, continue home doses of insulin, insulin sliding scale. #6 history of stroke: CT scan brain done twice in the last few days and was unremarkable. Plan to continue aspirin, statin and Plavix. #7 hyperlipidemia: Continue statins. #8 GERD: Continue PPI. #9 chronic back pain: IV morphine as above, OxyIR as needed, continue Lyrica. #10 schizophrenia/anxiety: Continue Zyprexa and Ativan. #11 DVT prophylaxis: This note was generated with [email or web address] dictation software. It may contain incorrect words, spelling, and punctuation that were not noted in checking the note before signing. Code Visit Inpatient E&M: 49659 Init Hosp L3
--- NOTE | 2018-01-23 00:59 | HP.PCM_ITS ---
Problem List (1) COPD (chronic obstructive pulmonary disease) Status: Chronic (2) History of stroke Status: Chronic (3) Diabetes mellitus Status: Chronic (4) Hyperlipidemia Status: Chronic (5) Esophageal reflux Status: Chronic (6) History of tobacco use Status: Chronic (7) Schizophrenia Status: Chronic (8) Chronic pain Status: Chronic History of Present Illness Date of Admission: 01/23/18 Chief Complaint: Bilateral hip pain, bilateral thigh and leg pain. The patient is a 57 year old F with past medical history as mentioned above presented to the emergency room because of bilateral hip pain and bilateral lower extremity pain that has been going on for 4 days. According to the patient, her symptoms started around 4 days ago with pain starts from her waist and both hips, radiates down to both eyes as well as both legs, dull aching pain , 7 out of 10 in severity, associated with burning sensation and tingling of both legs as well as frequent falls and without aggravating or relieving factors. She lives at the assisted living and she has been following more frequently because she cannot ambulate by use of her cane. She denied significant trauma because of her recurrent falls. She denied focal leg weakness but she reported that her both legs are weak. She denied bladder or stool incontinence. She complains of dry cough and increasing shortness of breath over the last few days. During my physical examination, she had tenderness on her right leg and when I asked her, she did complain of right leg pain that has been going on for a few days. She came to the emergency department on January 13, 2018 because of fall. She had CT scan cervical spine, CT scan brain as well as CT scan abdomen and pelvis that was unremarkable without acute findings. She is returning back to ED on January 17, 2018 for head injury due to mechanical fall and CT scan brain as well as CT scan of cervical spine done and they were unremarkable. She had lumbar spine x-ray and pelvis x-ray ordered by his PCP and that was done on January 21, 2018. Lumbar spine x-ray revealed disc space narrowing at L3-L4, L4-L5 and L5-S1. X-ray of the pelvis done the same day and showed no acute findings. This patient has a history of chronic back pain status post insertion of pain pump and she has been seeing who saw her recently. In the emergency department, she was afebrile, blood pressure and heart rate were stable but her pulse oximeter was 85% on room air. Her routine blood work was remarkable for mild leukocytosis, hemoglobin of 9.7 g/dL and potassium 3.4, otherwise normal. Troponin was negative. EKG revealed normal sinus rhythm without evidence of acute ischemic changes or cardiac arrhythmias. Chest x-ray showed no acute findings. She is being admitted for acute on chronic low back pain/lower extremity pain, frequent falls, physical debility and functional decline as well as hypoxia due to probable acute COPD exacerbation and anemia. Past Medical History Past Medical History (Chronic Problems): Chronic Problems (Last Reviewed 06/28/17 @ 12:57 by Coretta Pino) COPD (chronic obstructive pulmonary disease) (Chronic) History of stroke (Chronic) Diabetes mellitus (Chronic) Hyperlipidemia (Chronic) Esophageal reflux (Chronic) History of tobacco use (Chronic) Schizophrenia (Chronic) Chronic pain (Chronic) Medical History: Medical History (Last Reviewed 06/28/17 @ 12:57 by Coretta Pino) Cerebral vascular disease I67.9 Hypertension I10 Insomnia G47.00 Mild asthma J45.998 Neuralgia and neuritis M79.2 Spondylosis M47.9 Allergies Iodinated Contrast- Oral and IV Dye [Iodinated Contrast Media - IV Dye] Allergy (Verified 01/22/18 21:20) Hives amoxicillin trihydrate [From Augmentin] Adverse Reaction (Verified 01/22/18 21: 20) Itching hydrocodone [From Vicodin] Adverse Reaction (Verified 01/22/18 21:20) Unknown potassium clavulanate [From Augmentin] Adverse Reaction (Verified 01/22/18 21:20 ) Itching prednisone Adverse Reaction (Verified 01/22/18 21:20) Unknown shellfish derived Adverse Reaction (Verified 01/22/18 21:20) Itching Home Medications: Ambulatory Orders Medication Instructions Recorded Aspirin [Aspirin, Baby] 81 mg PO DAILY@0800 07/25/16 Atorvastatin Calcium [Lipitor] 80 mg PO QHS 07/25/16 Clopidogrel Bisulfate [Plavix] 75 mg PO DAILY 07/25/16 Dexlansoprazole [Dexilant] 60 mg PO DAILY 07/25/16 Dulaglutide [Trulicity] 1.5 mg SQ FR 07/25/16 Multivitamin with Minerals [Hair, 1 ea PO DAILY 07/25/16 Skin & Nails] Pregabalin [Lyrica] 100 mg PO TID 07/25/16 Insulin Degludec [Tresiba 50 unit SQ DAILY 09/23/16 Flextouch U-100] Cyclosporine [Restasis] 1 drop OP BID 04/08/17 Dapagliflozin/Metformin HCl 1 tablet PO BID 04/08/17 [Xigduo Xr 5 mg-1,000 mg Tablet] Empagliflozin [Jardiance] 25 mg PO DAILY 04/08/17 Oxybutynin Chloride [Ditropan Xl] 10 mg PO DAILY 04/08/17 Sucralfate [Carafate] 1 gm PO TID 04/08/17 Cholecalciferol (VIT D3) [Vitamin 3,000 unit PO DAILY 01/13/18 D3] Cyanocobalamin [Vitamin B12] 1 ml IM QMONTH 01/13/18 Fluoxetine HCl 40 mg PO DAILY 01/13/18 Fluticasone/Vilanterol [Breo 1 inh PO DAILY 01/13/18 Ellipta 200-25 Mcg INH] Lorazepam [Ativan] 2 mg PO TID 01/13/18 Olanzapine [Zyprexa] 7.5 mg PO BID 01/13/18 Naproxen [Naprosyn] 500 mg PO BID PRN #20 tab 01/21/18 Surgical History: Surgical History (Last Reviewed 06/28/17 @ 12:57 by Coretta Pino) S/P right rotator cuff repair Z98.890 11/27/16 Surgical History: appendectomy, cholecystectomy, hysterectomy Psychiatric History: Anxiety, Schizophrenia Lives: Alone Smoking Status: Current every day smoker Tobacco Use: Cigarettes Alcohol: None Drugs: None - *Family History Maternal History Items: No pertinent history Paternal History Items: No pertinent history Review of Systems Constitutional: Reports: Weakness, Fatigue. Denies: Anorexia, Chills, Fever Eyes: Denies: Blurred vision, Double vision, Drainage, Redness HEENT: Denies: Difficulty Hearing, Ear Pain, Eye Pain, Nasal Congestion, Sore Throat Cardiovascular: Denies: Chest Pain, Chest Pressure, Chest Tightness, Heaviness, Light Headedness, Orthopnea, Paroxysmal Noc. Dyspnea, Syncope Respiratory: Reports: Cough, Shortness of Breath, Shortness of breath upon exertion. Denies: Pleuritic Pain, Sputum production, Wheezing Gastrointestinal: Denies: Abdominal Pain, Constipation, Diarrhea, Nausea, Vomiting Genitourinary: Denies: Dysuria, Frequency, Hematuria Musculoskeletal: Reports: Back Pain, Joint Pain, Leg Pain. Denies: Arm Pain Skin: Denies: Dryness, Rash Neurological: Reports: Numbness, Tingling. Denies: Balance problems, Change in Speech, Slurred speech, Confusion, Headaches, Incoordination Psychiatric: Reports: Anxiety. Denies: Depression, Suicidal Ideations Endocrine: Denies: Change in Body Habitus, Polydipsia VTE Information - Inpt Only VTE Present on Admission: No VTE Mechan Device Prophylaxis: None VTE Pharm Prophylaxis ordered?: Yes - Physical Exam General: Alert, Oriented x3, Cooperative, No apparent distress HEENT: Atraumatic, PERRLA, EOMI, Normocephalic Oral: Moist Mucosa, No Gingival or Mucosal Lesions/ Ulcerations Neck: Supple, No JVD, Negative Carotid Bruits, Trachea Midline, Thyroid Normal Size and Texture Lungs: Diminished, Rhonchi, Short of Breath, Wheezes, - - Decreased breath sounds bilateral, bilateral rhonchi, expiratory wheezes. Cardiovascular: Regular rate, Regular Rhythm, Normal S1, Normal S2, No murmurs Abdomen: Bowel Sounds Present, Soft, Non Tender, Non-Distended, No Hepato- splenomegaly Extremities: No clubbing, No cyanosis, Edema - Trace edema on the right leg. Tenderness on the right leg with positive Parveen sign. Skin: No rashes, No breakdown Lymphatic: No Cervical, Supraclavicular, or Inguinal Adenopathy Neurological: Cranial nerves II-XII grossly intact, - - Global weakness, more on lower extremities. Psych/Mental Status: Normal Affect, Appropriate, Alert and oriented to time, place, person, mood and affect Vital Signs Temp Pulse Resp BP Pulse Ox 98.5 F 96 15 118/61 93 01/22/18 21:15 01/23/18 00:18 01/23/18 00:18 01/23/18 00:18 01/23/18 00:18 Oxygen Flow Rate (L/min) 2 Oxygen Delivery Method Nasal Cannula Weight: 185 lb Body Mass Index (BMI) 32.8 Finger Stick Blood Glucose 123 Laboratory Tests Past 24 Hrs 01/22/18 01/22/18 22:45 22:45 WBC 11.9 H RBC 4.84 Hgb 9.7 L Hct 34.3 L MCV 70.9 L MCH 20.0 L MCHC 28.3 L RDW 20.2 H RDW Differential 51.3 H Plt Count 247 MPV 9.0 Immature Gran % (Auto) 0.100 Neut % (Auto) 85.7 H Lymph % (Auto) 6.4 L [place] % (Auto) 6.4 Eos % (Auto) 1.2 Baso % (Auto) 0.2 Absolute Neuts (auto) 10.2 H Absolute Lymphs (auto) 0.76 L Total Counted Not Reportable Differential Comment SCANNED Hypochromasia 2+ Microcytosis 2+ Ovalocytes RARE Sodium 143 Potassium 3.4 L Chloride 109 H Carbon Dioxide 27.0 Anion Gap 7 BUN 10 Creatinine 0.54 L Estim Creat Clear Calc 96.23 Est GFR (MDRD) Af Amer 150 Est GFR (MDRD) Non-Af 124 BUN/Creatinine Ratio 18.5 Glucose 143 H Calcium 8.6 Troponin I < 0.015 Clinical Impression(s) from Imaging Studies Chest X-Ray 01/22/18 22:35 IMPRESSION: No acute cardiopulmonary disease. Electronically Signed: John Bo DO at 23:01 EDT , Service support , Assessment/Plan This is a 57 year old female patient presented to the emergency room because of back pain, bilateral lower extremity pain, frequent falls, difficulty ambulating , found to be hypoxic in the ER secondary to probable acute COPD exacerbation and also found to have anemia #1 acute on chronic low back pain/bilateral lower extremity pain/frequent falls : With the current ER visits the last few days. She had multiple imaging studies because of fall and injury over the last few days including CT scan brain, CT scan cervical spine, x-ray lumbar spine and x-ray of the pelvis and all of them was unremarkable without fractures or acute findings. Patient has been seeing Dr. Ruelas for pain management and she has pain pump. Plan: Admit to PCU, cardiac monitoring, start IV morphine as needed for pain, OxyIR as needed for pain, continue Lyrica, pain management consult, IV fluids, IV antiemetics, PT OT evaluation and treatment, case management consult because patient probably will need to go to shelter facility. #2 physical debility/functional decline/difficulty ambulating: Currently, patient lives at the assisted living and she mentioned that she cannot take care of herself, have been falling frequently with frequent ER visits. Plan as above, pain control, PT OT evaluation and treatment, patient to shelter facility. #3 shortness of breath/hypoxia/probable acute COPD exacerbation: She is a big time smoker, does have history of COPD but never been on oxygen. In the ER, her pulse ox was 85% on room air. Improved with oxygen. Chest x-ray showed no acute findings. During physical exam, she complains of right leg pain. Her right leg was swollen, tender to palpation and positive Parveen sign. DVT and PE is in the differential diagnosis. Plan: DuoNeb 6 hours, albuterol as needed , start prednisone, incentive spirometer, ultrasound of the right lower extremity, CTA chest to rule out acute PE, chest physical therapy, wean off oxygen as tolerated. #4 anemia: It is microcytic anemia. Her hemoglobin has been dropping since June,. She denied any bleeding from body orifices. She is on aspirin and Plavix. Plan: Stool for occult blood, serum iron, TIBC, serum ferritin. At this time, no indication for transfusion. #5 type 2 diabetes mellitus: ADA diet, Accu-Cheks, continue home doses of insulin, insulin sliding scale. #6 history of stroke: CT scan brain done twice in the last few days and was unremarkable. Plan to continue aspirin, statin and Plavix. #7 hyperlipidemia: Continue statins. #8 GERD: Continue PPI. #9 chronic back pain: IV morphine as above, OxyIR as needed, continue Lyrica. #10 schizophrenia/anxiety: Continue Zyprexa and Ativan. #11 DVT prophylaxis: This note was generated with [employer] dictation software. It may contain incorrect words, spelling, and punctuation that were not noted in checking the note before signing. Code Visit Inpatient E&M: 53821 Init Hosp L3
--- NOTE | 2018-01-23 01:11 | NURSING ---
Called ED line analyst, okay to bring patient to floor.
--- NOTE | 2018-01-23 01:52 | CT_ITS ---
STUDY: CTA CHEST REASON FOR EXAM: Female, 57 years old. Hypoxia RADIATION DOSAGE (If Supplied By Facility): CTDIvol = ( 14.03 ) mGy, DLP = ( 578.32 ) mGycm TECHNIQUE: The examination was performed with the intravenous administration of 100 ml of Isovue 370 contrast material. Post-processing of the angiographic images was performed, with multiplanar reformation and 3D reconstruction. Individualized dose optimization techniques were used for this CT. COMPARISON: CT chest 03/17/2016. CT abdomen pelvis 01/13/2018. Chest x-ray 01/22/2018. FINDINGS: Normal enhancement of the main pulmonary artery and right and left pulmonary arteries. Normal enhancement of the bilateral peripheral pulmonary arteries. There is no demonstrated pulmonary embolism. Normal thoracic aorta and visualized great vessels. There is no demonstrated aortic dissection. There is borderline cardiac cardiomegaly. There is no pericardial fluid. Borderline size subcarinal lymph nodes. Wall prominence of the distal esophagus. Borderline sized right hilar lymph node of 1 cm. Normal visualized trachea and bronchi. The lungs are under expanded. There is groundglass opacification exaggerated by cardiac motion. There is more focal airspace opacification in the right lower lobe, less left lower lobe, lingula and right middle lobe. Component of volume//atelectasis suspected. There is peribronchial soft tissue. Mild pleural thickening along the left lower lobe without effusion. Normal chest wall structures. There are degenerative changes of thoracic spine and bilateral shoulder joints. Dorsal intraspinal catheter of the lower thoracic spine. Nonacute stable fracture deformity right ninth lateral rib with callus formation. There are surgical clips in the gallbladder fossa consistent with a prior cholecystectomy. Mild splenomegaly. There is accessory splenic tissue. Small hiatal hernia. Liver is incompletely imaged but appears enlarged. CT/CTA Chest W/WO Contrast IMPRESSION: No demonstrated pulmonary embolism, aneurysm, leak or arterial dissection submitted images. Low lung volume with new bilateral predominantly right lower lobe airspace disease and moderate component of volume loss. Suspect underlying inflammatory/infectious etiology with borderline sized right hilar and subcarinal lymph node. There is borderline cardiac size. Esophageal wall prominence. This can be further assessed with upper GI or endoscopy, not visualized on previous CT chest exam. Nonacute stable fracture right ninth lateral rib. Mild splenomegaly, small hiatal hernia, accessory splenic tissue, prior cholecystectomy are stable findings. Electronically Signed: Lyn Agudelo MD at 7:19 EDT , Service support ,
--- NOTE | 2018-01-23 01:52 | VDLE_ITS ---
Reason For Study: RLE PAIN RIGHT GSV is normal. CFV is compressible, spontaneous, phasic, competent and demonstrates normal augmentation. FV is compressible, spontaneous, phasic, competent and demonstrates normal augmentation. POP V is compressible, spontaneous, phasic, competent and demonstrates normal augmentation. T/P Trunk is compressible. PTV is compressible. RT PerV is compressible. Procedure Exam performed portable in patient room. The exam was diagnostic. A preliminary report was called and/or faxed to [facility]. Interpretation Summary There is no evidence of right lower extremity deep vein thrombosis. Right greater saphenous vein appears patent and compressible segmentally. Ordering Physician: Mckay Fry Referring Physician: Car Diaz Performed By: Precious Concepcion, ALVARADO, RVT
[2018-01-23 02:34] LABS: Ferritin 16 ng/mL (8-252); Iron 18 ug/dL (50-170); Iron Binding Capacity,Total 390 ug/dL (250-450); PERCENT IRON SATURATION 4.6 % (15.0-55.0)
[2018-01-23 02:56] LABS: Bedside Glucose 189 mg/dL (70-110)
[2018-01-23 03:02] LABS: Mucous, Urine 0 SEEN /hpf (<or=2+); Red Blood Cells-Urine 0 SEEN /hpf (0-5)
[2018-01-23 03:06] LABS: Color, Urine Yellow (Yellow); Glucose, Dipstick 1000 mg/dl (Normal); Ketone-Dipstick Negative (Negative); Leukocyte Esterase-Dipstick 25 /ul (Negative); Nitrite-Dipstick Positive (Negative); Occult Blood-Urine Negative /ul (Negative); Protein-Dipstick Negative (Negative); Specific Gravity, Urine 1.005 (1.002-1.030); Urine Bilirubin Dipstick Negative (Negative); Urine Clarity Clear (Clear); Urine Urobilinogen Normal (Normal); Urine pH 6.5 (5.0 - 8.0)
[2018-01-23 03:11] LABS: Bacteria 3+ /hpf (None Seen); Squamous Epithelial Cells - UA 0-5 SEEN /hpf (5-10); White Blood Cells 0-5 SEEN /hpf (0-5)
[2018-01-23] MEDS: oxyCODONE 5 MG Tablet PO ×2 (03:31→09:24)
[2018-01-23] MEDS: LORazepam 1 MG Tablet 2 MG PO (06:58)
[2018-01-23] MEDS: Morphine 2 MG/ML Syringe IV ×2 (06:58→14:56)
[2018-01-23] MEDS: Pregabalin 50 MG Capsule 100 MG PO ×3 (06:58→21:30)
[2018-01-23] MEDS: 0.9% NaCl Peripheral Flush Adult/Peds IV (06:58)
[2018-01-23] MEDS: Ipratropium/Albuterol Sulfate 3 ML AMPUL.NEB INHALATION ×3 (07:01→19:10)
[2018-01-23] MEDS: Sucralfate 1 GM Tablet PO ×3 (07:03→16:51)
[2018-01-23] MEDS: Ceftriaxone 1 GM/50 ML BAG IV (07:03)
[2018-01-23 07:05] LABS: Anion Gap 12 (5-15); BUN 11 mg/dL (7-18); BUN/Creat Ratio 18.1 RATIO (10-20); Calcium,Total 8.5 mg/dL (8.5-10.1); Chloride 111 mmol/L (98-107); Creatinine, Serum 0.61 mg/dL (0.55-1.02); EST Glomerular Filtration Rate 108 mL/min (>60); Est Glom Filt Rate - Afr Amer 131 mL/min (>60); Estimated Creatinine Clearance 85.19 ml/min; Glucose 208 mg/dL (74-106); Potassium 4.2 mmol/L (3.5-5.1); Sodium Level 143 mmol/L (136-145)
[2018-01-23 07:13] LABS: Absolute Lymphocyte Count 0.33 X10^3/ul (0.83-4.51); Absolute Neutrophil Count 9.2 X10^3/uL (2.0-7.7); Basophil# 0.01 X10^3/uL; Basophil% 0.1 % (0-1); Eosinophil# 0.01 X10^3/uL; Eosinophils% 0.1 % (0-5); Hematocrit 34.9 % (37-47); Hemoglobin 9.7 g/dl (12.0-15.0); Lymphocyte # 0.33 X10^3/ul (4.0); Lymphocyte % 3.4 % (19-41); Mean Corp Hgb Conc 27.8 g/gl (32-36); Mean Corpuscular Hgb 20.3 pg (27.0-32.0); Mean Platelet Vol. 9.8 fl (6.2-12.0); Monocyte# 0.06 X10^3/uL; Monocyte% 0.6 % (0-10); Neutrophil # 9.18 X10^3/uL (2.7-7.7); Neutrophil % 95.7 % (47-70); Platelet Count 234 K/mm3 (150-450); RBC Distribution Width CV 20.3 % (11.6-14.6); RBC Distribution Width SD 53.2 fl (35.1-43.9); Red Blood Count 4.78 M/mm3 (4.2-5.4); White Blood Count 9.6 K/mm3 (4.4-11.0)
[2018-01-23 07:14] LABS: Differential Indicated SCAN CRITERIA MET; POSITIVE COUNT NO; POSITIVE DIFFERENTIAL YES; POSITIVE MORPHOLOGY YES
[2018-01-23 07:18] LABS: Crenated RBC RARE; Differential Comment SCANNED; Ovalocyte RARE
[2018-01-23 07:19] LABS: Schistocytes RARE
[2018-01-23 07:36] LABS: Bedside Glucose 320 mg/dL (70-110)
[2018-01-23] MEDS: Insulin Lispro 100 UNIT/ML INSULN.PEN SC ×4 (09:23→21:30)
[2018-01-23] MEDS: predniSONE 20 MG Tablet 40 MG PO (09:25)
[2018-01-23] MEDS: Aspirin 81 MG TAB.CHEW PO (09:26)
[2018-01-23] MEDS: OLANZapine 2.5 MG Tablet 7.5 MG PO ×2 (09:27→21:30)
[2018-01-23] MEDS: FLUoxetine 20 MG Capsule 40 MG PO (09:27)
[2018-01-23] MEDS: Tolterodine Tartrate 2 MG CAP.SA PO (09:29)
[2018-01-23] MEDS: Clopidogrel Bisulfate 75 MG Tablet PO (09:29)
[2018-01-23] MEDS: Empagliflozin 25 MG Tablet PO (09:35)
--- NOTE | 2018-01-23 10:43 | CASEMGMT ---
Addendum entered by Ольга Farnsworth 01/23/18 14:24: SW sent referral to [facility] and left a voice mail for Vee. Ольга KHAN Original Note: SW spoke with patient as she is from [facility]. She said she will need to go somewhere for rehab before she can return to [facility] Discussed options and her first choice is [facility], second is [facility], and third is [place]. CLARENCE will send a referral to [facility] once PT/OT is in computer. Plan: SNF pending accepting facility and insurance approval. Ольга KHAN
--- NOTE | 2018-01-23 11:57 | PCM.PROGNOTE ---
<Aurelio Mcconnell - Last Filed: 01/23/18 11:57> Subjective: pt continues to complain of back, hip, and leg pain. She states the pain in her legs is the worst, and describes it as sharp burning pain with some numbness and tingling. She is somewhat SOB at rest, mild only some small improvement since admission. She has a nonproductive cough. She smokes about 7 cigarettes per day but does not want a patch. She states she has only gotten worse since seeing Basali in the office. She does complain of dysuria. No fever or chills. - Physical Exam General: Alert, Oriented x3, Cooperative HEENT: Atraumatic, PERRLA, EOMI, Normocephalic Neck: Supple, No JVD, Negative Carotid Bruits Lungs: Rhonchi, Wheezes Cardiovascular: Regular rate, No murmurs Abdomen: Bowel Sounds Present, Soft, Non Tender Extremities: No edema, Capillary Refill Less than 3 Seconds Skin: No rashes, No breakdown Musculoskeletal: No Tenderness to Palpation of Joints or Extremities Neurological: Cranial nerves II-XII grossly intact Psych/Mental Status: Anxious, Alert and oriented to time, place, person, mood and affect Vital Signs Temp Pulse Resp BP Pulse Ox 98.5 F 91 16 129/63 H 99 01/23/18 11:48 01/23/18 11:48 01/23/18 11:48 01/23/18 11:48 01/23/18 11:48 Oxygen Flow Rate (L/min) 2 Oxygen Delivery Method Nasal Cannula Weight: 79.8 kg Body Mass Index (BMI) 31.1 Intake and Output for Last 24 Hours 01/21/18 01/22/18 01/23/18 23:59 23:59 23:59 Intake Total 1600 / 1600 Output Total 600 / 600 Balance 1000 / 1000 Laboratory Tests Past 24 Hrs 01/23/18 01/23/18 01/23/18 02:45 05:33 05:33 WBC 9.6 RBC 4.78 Hgb 9.7 L Hct 34.9 L MCV 73.0 L MCH 20.3 L MCHC 27.8 L RDW 20.3 H RDW Differential 53.2 H Plt Count 234 MPV 9.8 Immature Gran % (Auto) 0.100 Neut % (Auto) 95.7 H Lymph % (Auto) 3.4 L [place] % (Auto) 0.6 Eos % (Auto) 0.1 Baso % (Auto) 0.1 Absolute Neuts (auto) 9.2 H Absolute Lymphs (auto) 0.33 L Total Counted Not Reportable Differential Comment SCANNED RBC Morphology RARE Ovalocytes RARE Schistocytes RARE Sodium 143 Potassium 4.2 Chloride 111 H Carbon Dioxide 20.0 L Anion Gap 12 BUN 11 Creatinine 0.61 Estim Creat Clear Calc 85.19 Est GFR (MDRD) Af Amer 131 Est GFR (MDRD) Non-Af 108 BUN/Creatinine Ratio 18.1 Glucose 208 H Calcium 8.5 Urine Color Yellow Urine Clarity Clear Urine pH 6.5 Ur Specific [place] 1.005 Urine Protein Negative Urine Glucose (UA) 1000 H Urine Ketones Negative Urine Occult Blood Negative Urine Nitrite Positive H Urine Bilirubin Negative Urine Urobilinogen Normal Ur Leukocyte Esterase 25 H Urine RBC 0 SEEN Urine WBC 0-5 SEEN Ur Squamous Epith Cells 0-5 SEEN Urine Bacteria 3+ Urine Mucus 0 SEEN POC Glucose 01/23/18 01/23/18 06:54 02:08 POC Glucose 320 H 189 H Medical Necessity - Tobacco Use Smoking Status: Current every day smoker Tobacco Use: Cigarettes Assessment/Plan 1. Intractable back/hip/leg pain - acute on chronic pain. Now with inability to walk or stand. PTOT. Consult to pain management Dr. Ruelas whom she follows as an outpatient. Recent imaging per Dr. Ruelas. She has a pain pump. 2. Acute UTI - continue rocephin and follow cultures. + dysuria. Leukocytosis resolved. 3. Acute COPD exacerbation - still wheezy/rhonchorous. continue azithro, aerosols and prednisone. negative CXR. CTA without PE. 4. Nicotine abuse - refuses patch 5. Anemia with iron def - po iron 6. HLD - statin 7. GERD - PPI, carafate. 8. T2DM - continue current therapy. 9. Hx CVA - continue asa/statin/plavix 10. Schizophrenia - zyprexa, ativan, prozac DVT ppx: scd's DC planning: pt cannot stand or walk. Likely needs placement. This patient was seen by Aurelio Mcconnell PA-C under the supervision of Doctor Rodriguez. <Festus Rodriguez - Last Filed: 01/23/18 14:07> Subjective: Still with back pain and leg pain. Legs feel like they are burning. Can't move her legs. Falling on several occasions, but does not know why, but states it's not her medications. - Physical Exam General: Alert, Cooperative HEENT: Atraumatic, Normocephalic Neck: No Nodes, Thyroid Normal Size and Texture Lungs: Diminished, - - coarse breath sounds bilaterally. Cardiovascular: Regular rate, Regular Rhythm, Normal S1, Normal S2, No murmurs Abdomen: Bowel Sounds Present, Soft, Non Tender, Non-Distended Extremities: No edema, No Calf Tenderness Skin: No rashes, No breakdown Neurological: - - No attempt to move her lower extremities upon request. Psych/Mental Status: Anxious, Flat Affect Vital Signs Temp Pulse Resp BP Pulse Ox 36.9 C 88 16 129/63 H 99 01/23/18 11:48 01/23/18 12:57 01/23/18 12:57 01/23/18 11:48 01/23/18 11:48 Oxygen Flow Rate (L/min) 2 Oxygen Delivery Method Nasal Cannula Weight: 79.8 kg Body Mass Index (BMI) 31.1 Intake and Output for Last 24 Hours 01/21/18 01/22/18 01/23/18 23:59 23:59 23:59 Intake Total 1600 / 1600 Output Total 600 / 600 Balance 1000 / 1000 Laboratory Tests Past 24 Hrs 01/23/18 01/23/18 01/23/18 02:45 05:33 05:33 WBC 9.6 RBC 4.78 Hgb 9.7 L Hct 34.9 L MCV 73.0 L MCH 20.3 L MCHC 27.8 L RDW 20.3 H RDW Differential 53.2 H Plt Count 234 MPV 9.8 Immature Gran % (Auto) 0.100 Neut % (Auto) 95.7 H Lymph % (Auto) 3.4 L Fleming % (Auto) 0.6 Eos % (Auto) 0.1 Baso % (Auto) 0.1 Absolute Neuts (auto) 9.2 H Absolute Lymphs (auto) 0.33 L Total Counted Not Reportable Differential Comment SCANNED RBC Morphology RARE Ovalocytes RARE Schistocytes RARE Sodium 143 Potassium 4.2 Chloride 111 H Carbon Dioxide 20.0 L Anion Gap 12 BUN 11 Creatinine 0.61 Estim Creat Clear Calc 85.19 Est GFR (MDRD) Af Amer 131 Est GFR (MDRD) Non-Af 108 BUN/Creatinine Ratio 18.1 Glucose 208 H Calcium 8.5 Urine Color Yellow Urine Clarity Clear Urine pH 6.5 Ur Specific [place] 1.005 Urine Protein Negative Urine Glucose (UA) 1000 H Urine Ketones Negative Urine Occult Blood Negative Urine Nitrite Positive H Urine Bilirubin Negative Urine Urobilinogen Normal Ur Leukocyte Esterase 25 H Urine RBC 0 SEEN Urine WBC 0-5 SEEN Ur Squamous Epith Cells 0-5 SEEN Urine Bacteria 3+ Urine Mucus 0 SEEN POC Glucose 01/23/18 01/23/18 01/23/18 11:54 06:54 02:08 POC Glucose 239 H 320 H 189 H Assessment/Plan Patient seen and examined independently. Data reviewed. I agree with the above note by the physician school office assistant. 1. Intractable back pain Patient gives essentially no effort in trying to move her legs and comply with lower extremity exam so I question if there is any kind of radicular component. Reviewing the patient's x-rays of her lumbar spine showed no evidence of any compression fracture Pain management is on consultation to further assist with pain control. 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 Suspected pneumococcal pneumonia I personally reviewed the patient's CAT scan that shows right lower lobe infiltrate Patient will be on empiric azithromycin and Rocephin Check urine studies for strep and Legionella Check sputum culture Pulmonary toilet 3. Debility with falls Unclear specifically what all going on with her but part of my concern is polypharmacy. I expressed as much to the patient and have recommended a taper of her benzodiazepines. 4. Anxiety Patient asked specifically what to treat her anxiety if not benzodiazepines. She mentioned BuSpar as an option and is said that could be an option then she quickly stated that did not work for her. I did talk to her specifically about long-term benzodiazepine use and how they are poor choice for treating anxiety. I have discussed with her at length about the weaning process of benzodiazepines. I feel that it is necessary to begin the weaning of benzodiazepines given her falls and I am very concerned about polypharmacy. Patient reluctantly though not explicitly agreed to proceeding with that. Patient's urinalysis was reviewed and there is no UTI. UTI is ruled out. Code Visit Procedures: Other Procedure - See Report - Nonbillable rounding
[2018-01-23] MEDS: Azithromycin 250 MG Tablet 500 MG PO (12:03)
[2018-01-23 12:05] LABS: Bedside Glucose 239 mg/dL (70-110)
--- NOTE | 2018-01-23 12:09 | PN_ITS ---
<Aurelio Mcconnell - Last Filed: 01/23/18 11:57> Subjective: pt continues to complain of back, hip, and leg pain. She states the pain in her legs is the worst, and describes it as sharp burning pain with some numbness and tingling. She is somewhat SOB at rest, mild only some small improvement since admission. She has a nonproductive cough. She smokes about 7 cigarettes per day but does not want a patch. She states she has only gotten worse since seeing Basali in the office. She does complain of dysuria. No fever or chills. - Physical Exam General: Alert, Oriented x3, Cooperative HEENT: Atraumatic, PERRLA, EOMI, Normocephalic Neck: Supple, No JVD, Negative Carotid Bruits Lungs: Rhonchi, Wheezes Cardiovascular: Regular rate, No murmurs Abdomen: Bowel Sounds Present, Soft, Non Tender Extremities: No edema, Capillary Refill Less than 3 Seconds Skin: No rashes, No breakdown Musculoskeletal: No Tenderness to Palpation of Joints or Extremities Neurological: Cranial nerves II-XII grossly intact Psych/Mental Status: Anxious, Alert and oriented to time, place, person, mood and affect Vital Signs Temp Pulse Resp BP Pulse Ox 98.5 F 91 16 129/63 H 99 01/23/18 11:48 01/23/18 11:48 01/23/18 11:48 01/23/18 11:48 01/23/18 11:48 Oxygen Flow Rate (L/min) 2 Oxygen Delivery Method Nasal Cannula Weight: 79.8 kg Body Mass Index (BMI) 31.1 Intake and Output for Last 24 Hours 01/21/18 01/22/18 01/23/18 23:59 23:59 23:59 Intake Total 1600 / 1600 Output Total 600 / 600 Balance 1000 / 1000 Laboratory Tests Past 24 Hrs 01/23/18 01/23/18 01/23/18 02:45 05:33 05:33 WBC 9.6 RBC 4.78 Hgb 9.7 L Hct 34.9 L MCV 73.0 L MCH 20.3 L MCHC 27.8 L RDW 20.3 H RDW Differential 53.2 H Plt Count 234 MPV 9.8 Immature Gran % (Auto) 0.100 Neut % (Auto) 95.7 H Lymph % (Auto) 3.4 L [place] % (Auto) 0.6 Eos % (Auto) 0.1 Baso % (Auto) 0.1 Absolute Neuts (auto) 9.2 H Absolute Lymphs (auto) 0.33 L Total Counted Not Reportable Differential Comment SCANNED RBC Morphology RARE Ovalocytes RARE Schistocytes RARE Sodium 143 Potassium 4.2 Chloride 111 H Carbon Dioxide 20.0 L Anion Gap 12 BUN 11 Creatinine 0.61 Estim Creat Clear Calc 85.19 Est GFR (MDRD) Af Amer 131 Est GFR (MDRD) Non-Af 108 BUN/Creatinine Ratio 18.1 Glucose 208 H Calcium 8.5 Urine Color Yellow Urine Clarity Clear Urine pH 6.5 Ur Specific [place] 1.005 Urine Protein Negative Urine Glucose (UA) 1000 H Urine Ketones Negative Urine Occult Blood Negative Urine Nitrite Positive H Urine Bilirubin Negative Urine Urobilinogen Normal Ur Leukocyte Esterase 25 H Urine RBC 0 SEEN Urine WBC 0-5 SEEN Ur Squamous Epith Cells 0-5 SEEN Urine Bacteria 3+ Urine Mucus 0 SEEN POC Glucose 01/23/18 01/23/18 06:54 02:08 POC Glucose 320 H 189 H Medical Necessity - Tobacco Use Smoking Status: Current every day smoker Tobacco Use: Cigarettes Assessment/Plan 1. Intractable back/hip/leg pain - acute on chronic pain. Now with inability to walk or stand. PTOT. Consult to pain management Dr. Ruelas whom she follows as an outpatient. Recent imaging per Dr. Ruelas. She has a pain pump. 2. Acute UTI - continue rocephin and follow cultures. + dysuria. Leukocytosis resolved. 3. Acute COPD exacerbation - still wheezy/rhonchorous. continue azithro, aerosols and prednisone. negative CXR. CTA without PE. 4. Nicotine abuse - refuses patch 5. Anemia with iron def - po iron 6. HLD - statin 7. GERD - PPI, carafate. 8. T2DM - continue current therapy. 9. Hx CVA - continue asa/statin/plavix 10. Schizophrenia - zyprexa, ativan, prozac DVT ppx: scd's DC planning: pt cannot stand or walk. Likely needs placement. This patient was seen by Aurelio Mcconnell PA-C under the supervision of Doctor Rodriguez. <Festus Rodriguez - Last Filed: 01/23/18 14:07> Subjective: Still with back pain and leg pain. Legs feel like they are burning. Can't move her legs. Falling on several occasions, but does not know why, but states it's not her medications. - Physical Exam General: Alert, Cooperative HEENT: Atraumatic, Normocephalic Neck: No Nodes, Thyroid Normal Size and Texture Lungs: Diminished, - - coarse breath sounds bilaterally. Cardiovascular: Regular rate, Regular Rhythm, Normal S1, Normal S2, No murmurs Abdomen: Bowel Sounds Present, Soft, Non Tender, Non-Distended Extremities: No edema, No Calf Tenderness Skin: No rashes, No breakdown Neurological: - - No attempt to move her lower extremities upon request. Psych/Mental Status: Anxious, Flat Affect Vital Signs Temp Pulse Resp BP Pulse Ox 36.9 C 88 16 129/63 H 99 01/23/18 11:48 01/23/18 12:57 01/23/18 12:57 01/23/18 11:48 01/23/18 11:48 Oxygen Flow Rate (L/min) 2 Oxygen Delivery Method Nasal Cannula Weight: 79.8 kg Body Mass Index (BMI) 31.1 Intake and Output for Last 24 Hours 01/21/18 01/22/18 01/23/18 23:59 23:59 23:59 Intake Total 1600 / 1600 Output Total 600 / 600 Balance 1000 / 1000 Laboratory Tests Past 24 Hrs 01/23/18 01/23/18 01/23/18 02:45 05:33 05:33 WBC 9.6 RBC 4.78 Hgb 9.7 L Hct 34.9 L MCV 73.0 L MCH 20.3 L MCHC 27.8 L RDW 20.3 H RDW Differential 53.2 H Plt Count 234 MPV 9.8 Immature Gran % (Auto) 0.100 Neut % (Auto) 95.7 H Lymph % (Auto) 3.4 L [place] % (Auto) 0.6 Eos % (Auto) 0.1 Baso % (Auto) 0.1 Absolute Neuts (auto) 9.2 H Absolute Lymphs (auto) 0.33 L Total Counted Not Reportable Differential Comment SCANNED RBC Morphology RARE Ovalocytes RARE Schistocytes RARE Sodium 143 Potassium 4.2 Chloride 111 H Carbon Dioxide 20.0 L Anion Gap 12 BUN 11 Creatinine 0.61 Estim Creat Clear Calc 85.19 Est GFR (MDRD) Af Amer 131 Est GFR (MDRD) Non-Af 108 BUN/Creatinine Ratio 18.1 Glucose 208 H Calcium 8.5 Urine Color Yellow Urine Clarity Clear Urine pH 6.5 Ur Specific [place] 1.005 Urine Protein Negative Urine Glucose (UA) 1000 H Urine Ketones Negative Urine Occult Blood Negative Urine Nitrite Positive H Urine Bilirubin Negative Urine Urobilinogen Normal Ur Leukocyte Esterase 25 H Urine RBC 0 SEEN Urine WBC 0-5 SEEN Ur Squamous Epith Cells 0-5 SEEN Urine Bacteria 3+ Urine Mucus 0 SEEN POC Glucose 01/23/18 01/23/18 01/23/18 11:54 06:54 02:08 POC Glucose 239 H 320 H 189 H Assessment/Plan Patient seen and examined independently. Data reviewed. I agree with the above note by the physician hearing and speech assistant. 1. Intractable back pain * Patient gives essentially no effort in trying to move her legs and comply with lower extremity exam so I question if there is any kind of radicular component. * Reviewing the patient's x-rays of her lumbar spine showed no evidence of any compression fracture * Pain management is on consultation to further assist with pain control. * Personally reviewed the patient's OARRS patient has been compliant receiving her Lyrica, lorazepam and her Dilaudid PACKER INSULATION 2. Suspected pneumococcal pneumonia * I personally reviewed the patient's CAT scan that shows right lower lobe infiltrate * Patient will be on empiric azithromycin and Rocephin * Check urine studies for strep and Legionella * Check sputum culture * Pulmonary toilet 3. Debility with falls * Unclear specifically what all going on with her but part of my concern is polypharmacy. I expressed as much to the patient and have recommended a taper of her benzodiazepines. 4. Anxiety * Patient asked specifically what to treat her anxiety if not benzodiazepines. She mentioned BuSpar as an option and is said that could be an option then she quickly stated that did not work for her. I did talk to her specifically about long-term benzodiazepine use and how they are poor choice for treating anxiety. I have discussed with her at length about the weaning process of benzodiazepines. I feel that it is necessary to begin the weaning of benzodiazepines given her falls and I am very concerned about polypharmacy. Patient reluctantly though not explicitly agreed to proceeding with that. Patient's urinalysis was reviewed and there is no UTI. UTI is ruled out. Code Visit Procedures: Other Procedure - See Report - Nonbillable rounding
--- NOTE | 2018-01-23 15:34 | CASEMGMT ---
Received a call from Vee at [facility] and they can take patient. She will start the process to obtain insurance authorization. Plan: [facility] pending insurance approval Ольга KHAN
[2018-01-23] MEDS: Ferrous Sulfate 325 MG Tablet PO (16:50)
[2018-01-23 16:51] LABS: Bedside Glucose 217 mg/dL (70-110)
--- NOTE | 2018-01-23 17:40 | CHAPLAIN ---
Type of Pastoral Visit _x__ Initial Visit ___ Follow-up Visit ___ On-call Visit ___ General Patient Visit ___ Spiritual Assessment ___ Family Conference ___ Bereavement ___ Rapid Response ___ Code Blue ___ Other (describe below) Pastoral Care Referral From _x__ Patient ___ Family ___ Nurse ___ Physician ___ Subscription Clerk ___ Slitter And Cutter Operator ___ Other (describe below) Sacrament/Intervention _x__ Active listening ___ Anointing ___ Baptist ___ Bereavement ___ Communion _x__ Rossy exploration ___ _x__ Life review _x__ Prayer ___ Reconciliation ___ Sacrament of Sick _x__ Supportive presence ___ Wedding ___ Other (describe below) Pastoral Comments patient sees her physical illness in spiritual terms and has questions and doubts; pt seeks prayer and supportive presence of clergy
[2018-01-23] MEDS: Atorvastatin Calcium 80 MG Tablet PO (21:30)
[2018-01-23] MEDS: guaiFENesin 1,200 MG Tablet 1200 MG PO (21:30)
[2018-01-23] MEDS: Acetaminophen 325 MG Tablet 650 MG PO (21:31)
[2018-01-23 23:20] LABS: Bedside Glucose 386 mg/dL (70-110)
[2018-01-24] VITALS (11 sets, daily range): BP systolic 135–160; BP diastolic 65–70; PULSE 68–94; RESP 16–18; TEMP 36.6–36.9; O2SAT 93–98
[2018-01-24] MEDS: Ipratropium/Albuterol Sulfate 3 ML AMPUL.NEB INHALATION ×3 (02:01→19:03)
[2018-01-24] MEDS: Sucralfate 1 GM Tablet PO ×3 (06:35→16:29)
[2018-01-24] MEDS: Pregabalin 50 MG Capsule 100 MG PO ×3 (06:35→21:00)
[2018-01-24] MEDS: Acetaminophen 325 MG Tablet 650 MG PO (06:41)
[2018-01-24 07:01] LABS: Bedside Glucose 191 mg/dL (70-110)
[2018-01-24] MEDS: Insulin Lispro 100 UNIT/ML INSULN.PEN SC ×4 (08:25→21:00)
[2018-01-24] MEDS: Ferrous Sulfate 325 MG Tablet PO ×2 (08:26→16:32)
[2018-01-24] MEDS: Aspirin 81 MG TAB.CHEW PO (08:26)
[2018-01-24] MEDS: predniSONE 20 MG Tablet 40 MG PO (08:26)
[2018-01-24] MEDS: OLANZapine 2.5 MG Tablet 7.5 MG PO ×2 (09:31→21:00)
[2018-01-24] MEDS: FLUoxetine 20 MG Capsule 40 MG PO (09:31)
[2018-01-24] MEDS: Docusate Sodium 100 MG Capsule PO ×2 (09:31→21:00)
[2018-01-24] MEDS: Empagliflozin 25 MG Tablet PO (09:32)
[2018-01-24] MEDS: Clopidogrel Bisulfate 75 MG Tablet PO (09:32)
[2018-01-24] MEDS: Tolterodine Tartrate 2 MG CAP.SA PO (09:32)
[2018-01-24] MEDS: guaiFENesin 1,200 MG Tablet 1200 MG PO ×2 (09:32→21:00)
[2018-01-24] MEDS: Azithromycin 250 MG Tablet 500 MG PO (09:33)
[2018-01-24] MEDS: Ceftriaxone 1 GM/50 ML BAG IV (09:40)
[2018-01-24] MEDS: Morphine 2 MG/ML Syringe IV ×2 (09:40→15:47)
--- NOTE | 2018-01-24 09:48 | CASEMGMT ---
CLARENCE spoke with patient letting her know [facility] can take her, but we have to wait on insurance to approve. CLARENCE told her she is not allowed to smoke there. She asked if she could have one before she leaves and CLARENCE told her no. CLARENCE told her the physician may be willing to write a prescription for nicotine patch. She said that would work. Plan: [facility] pending insurance approval. Ольга KHAN
[2018-01-24 12:36] LABS: Bedside Glucose 273 mg/dL (70-110)
--- NOTE | 2018-01-24 14:33 | PCM.PROGNOTE ---
<Aurelio Mcconnell - Last Filed: 01/24/18 14:33> Subjective: Pt continues to have severe back pain. She was able to get onto her feet to stand, pivot, and take a few steps to get to the chair with assistance only. She is unable to stand or walk at all on her own. She continues to be somewhat short of breath with exertion however this is significantly improved and she is not short of breath at rest. She has been successfully weaned off of oxygen. She continues to have a nonproductive cough. No fevers or chills overnight. She is concerned about swelling of her right lower extremity and thought that she had a blood clot in her right leg, I reiterated to her that her venous ultrasound was negative for any blood clots. She is concerned that the steroids will make her swelling of her legs and her weight increase. - Physical Exam General: Alert, Oriented x3, Cooperative HEENT: Atraumatic, PERRLA, EOMI, Normocephalic Neck: Supple, No JVD, Negative Carotid Bruits Lungs: Rales, Rhonchi, Wheezes Cardiovascular: Regular rate, No murmurs Abdomen: Bowel Sounds Present, Soft, Non Tender Extremities: No edema, Capillary Refill Less than 3 Seconds Skin: No rashes, No breakdown Musculoskeletal: No Tenderness to Palpation of Joints or Extremities Neurological: Cranial nerves II-XII grossly intact Psych/Mental Status: Appropriate, Depressed, Alert and oriented to time, place, person, mood and affect Vital Signs Temp Pulse Resp BP Pulse Ox 97.9 F 77 16 160/68 H 96 01/24/18 09:25 01/24/18 11:50 01/24/18 09:25 01/24/18 09:25 01/24/18 09:25 Oxygen Flow Rate (L/min) 2 Oxygen Delivery Method Room Air Weight: 79.8 kg Body Mass Index (BMI) 31.1 Intake and Output for Last 24 Hours 01/22/18 01/23/18 01/24/18 23:59 23:59 23:59 Intake Total 2432 / 2432 0 / 2060 Output Total 1200 / 1200 2450 / 2450 Balance 1232 / 1232 -390 / -390 Microbiology Past 72 Hours 01/23/18 02:45 Urine Culture - Preliminary Urine, Clean Catch GNR lactose studio operations manager POC Glucose 07/01/24/18 01/23/18 12:04 06:44 21:27 POC Glucose 273 H 191 H 386 H 01/23/18 16:47 POC Glucose 217 H Medical Necessity - Tobacco Use Smoking Status: Current every day smoker Tobacco Use: Cigarettes Assessment/Plan 1. Intractable back/hip/leg pain - acute on chronic pain. Now with inability to walk or stand. PTOT. Recent imaging per Dr. Ruelas. She has a pain pump. She will need to follow-up with Dr. Ruelas as an outpatient. She remains significantly debilitated and will likely need placed 2. Acute UTI -ruled out. 3. Acute acute right lower lobe pneumonia suspected pneumococcal, present on admission, and associated acute COPD exacerbation -pneumonia on CTA. Patient on azithromycin and Rocephin. Still wheezy/rhonchorous. continue abx, aerosols and prednisone. negative CXR. CTA without PE. Afebrile and leukocytosis resolved yesterday. Continue Pep/IS, mucinex. 4. Nicotine abuse - requests patch for dc. 5. Anemia with iron def - po iron 6. HLD - statin 7. GERD - PPI, carafate. 8. T2DM - continue current therapy. 9. Hx CVA - continue asa/statin/plavix 10. Schizophrenia and anxiety zyprexa, ativan, prozac DVT ppx: scd's DC planning: pt cannot stand or walk on her own. Likely needs placement. This patient was seen by Aurelio Mcconnell PA-C under the supervision of Doctor Michael. <Festus Rodriguez - Last Filed: 01/24/18 15:48> Subjective: still with significant back pain. breathing better. - Physical Exam General: Alert, Cooperative HEENT: Atraumatic, Normocephalic Oral: Moist Mucosa, No Gingival or Mucosal Lesions/ Ulcerations Neck: No Nodes, Thyroid Normal Size and Texture Lungs: Rales, Rhonchi, Wheezes Cardiovascular: Regular rate, Regular Rhythm, Normal S1, Normal S2, No murmurs Abdomen: Bowel Sounds Present, Soft, Non Tender, Non-Distended Psych/Mental Status: Normal Affect, Appropriate Vital Signs Temp Pulse Resp BP Pulse Ox 36.6 C 77 16 160/68 H 96 01/24/18 09:25 01/24/18 11:50 01/24/18 09:25 01/24/18 09:25 01/24/18 09:25 Oxygen Flow Rate (L/min) 2 Oxygen Delivery Method Room Air Weight: 79.8 kg Body Mass Index (BMI) 31.1 Intake and Output for Last 24 Hours 01/22/18 01/23/18 01/24/18 23:59 23:59 23:59 Intake Total 2432 / 2432 2060 / 2060 Output Total 1200 / 1200 2450 / 2450 Balance 1232 / 1232 -390 / -390 Microbiology Past 72 Hours 01/23/18 02:45 Urine Culture - Preliminary Urine, Clean Catch GNR lactose studio operations manager POC Glucose 01/24/18 01/24/18 01/23/18 12:04 06:44 21:27 POC Glucose 273 H 191 H 386 H 01/23/18 16:47 POC Glucose 217 H Assessment/Plan Patient seen and examined independently. Data reviewed. I agree with the above note by the physician minister assistant. 1. Intractable back pain Patient gives essentially no effort in trying to move her legs and comply with lower extremity exam so I question if there is any kind of radicular component. Reviewing the patient's x-rays of her lumbar spine showed no evidence of any compression fracture Pain management is on consultation and Dr. Ruelas increased the hydromorphone in her pump. Pt reporting little to no relief. Unfortunately, I doubt her claims. Personally reviewed the patient's OARRS patient has been compliant receiving her Lyrica, lorazepam and her Dilaudid INSECTICIDE EXPERT 2. Suspected pneumococcal pneumonia I personally reviewed the patient's CAT scan that shows right lower lobe infiltrate Patient will be on empiric azithromycin and Rocephin Check urine studies for strep and Legionella Check sputum culture Pulmonary toilet change to oral upon discharge. 3. Debility with falls Unclear specifically what all going on with her but part of my concern is polypharmacy. I expressed as much to the patient and have recommended a taper of her benzodiazepines. 4. Anxiety Patient asked specifically what to treat her anxiety if not benzodiazepines. She mentioned BuSpar as an option and is said that could be an option then she quickly stated that did not work for her. I did talk to her specifically about long-term benzodiazepine use and how they are poor choice for treating anxiety. I have discussed with her at length about the weaning process of benzodiazepines. I feel that it is necessary to begin the weaning of benzodiazepines given her falls and I am very concerned about polypharmacy. Patient reluctantly though not explicitly agreed to proceeding with that. Patient's urinalysis was reviewed and there is no UTI. UTI is ruled out. Code Visit Inpatient E&M: 19642 Subs Hosp L2
--- NOTE | 2018-01-24 14:41 | PN_ITS ---
<Aurelio Mcconnell - Last Filed: 01/24/18 14:33> Subjective: Pt continues to have severe back pain. She was able to get onto her feet to stand, pivot, and take a few steps to get to the chair with assistance only. She is unable to stand or walk at all on her own. She continues to be somewhat short of breath with exertion however this is significantly improved and she is not short of breath at rest. She has been successfully weaned off of oxygen. She continues to have a nonproductive cough. No fevers or chills overnight. She is concerned about swelling of her right lower extremity and thought that she had a blood clot in her right leg, I reiterated to her that her venous ultrasound was negative for any blood clots. She is concerned that the steroids will make her swelling of her legs and her weight increase. - Physical Exam General: Alert, Oriented x3, Cooperative HEENT: Atraumatic, PERRLA, EOMI, Normocephalic Neck: Supple, No JVD, Negative Carotid Bruits Lungs: Rales, Rhonchi, Wheezes Cardiovascular: Regular rate, No murmurs Abdomen: Bowel Sounds Present, Soft, Non Tender Extremities: No edema, Capillary Refill Less than 3 Seconds Skin: No rashes, No breakdown Musculoskeletal: No Tenderness to Palpation of Joints or Extremities Neurological: Cranial nerves II-XII grossly intact Psych/Mental Status: Appropriate, Depressed, Alert and oriented to time, place, person, mood and affect Vital Signs Temp Pulse Resp BP Pulse Ox 97.9 F 77 16 160/68 H 96 01/24/18 09:25 01/24/18 11:50 01/24/18 09:25 01/24/18 09:25 01/24/18 09:25 Oxygen Flow Rate (L/min) 2 Oxygen Delivery Method Room Air Weight: 79.8 kg Body Mass Index (BMI) 31.1 Intake and Output for Last 24 Hours 01/22/18 01/23/18 01/24/18 23:59 23:59 23:59 Intake Total 2432 / 2432 0 / 2060 Output Total 1200 / 1200 2450 / 2450 Balance 1232 / 1232 -390 / -390 Microbiology Past 72 Hours 01/23/18 02:45 Urine Culture - Preliminary Urine, Clean Catch GNR lactose neurology tech POC Glucose 07/01/24/18 01/23/18 12:04 06:44 21:27 POC Glucose 273 H 191 H 386 H 01/23/18 16:47 POC Glucose 217 H Medical Necessity - Tobacco Use Smoking Status: Current every day smoker Tobacco Use: Cigarettes Assessment/Plan 1. Intractable back/hip/leg pain - acute on chronic pain. Now with inability to walk or stand. PTOT. Recent imaging per Dr. Ruelas. She has a pain pump. She will need to follow-up with Dr. Ruelas as an outpatient. She remains significantly debilitated and will likely need placed 2. Acute UTI -ruled out. 3. Acute acute right lower lobe pneumonia suspected pneumococcal, present on admission, and associated acute COPD exacerbation -pneumonia on CTA. Patient on azithromycin and Rocephin. Still wheezy/rhonchorous. continue abx, aerosols and prednisone. negative CXR. CTA without PE. Afebrile and leukocytosis resolved yesterday. Continue Pep/IS, mucinex. 4. Nicotine abuse - requests patch for dc. 5. Anemia with iron def - po iron 6. HLD - statin 7. GERD - PPI, carafate. 8. T2DM - continue current therapy. 9. Hx CVA - continue asa/statin/plavix 10. Schizophrenia and anxiety zyprexa, ativan, prozac DVT ppx: scd's DC planning: pt cannot stand or walk on her own. Likely needs placement. This patient was seen by Aurelio Mcconnell PA-C under the supervision of Doctor Michael. <Festus Rodriguez - Last Filed: 01/24/18 15:48> Subjective: still with significant back pain. breathing better. - Physical Exam General: Alert, Cooperative HEENT: Atraumatic, Normocephalic Oral: Moist Mucosa, No Gingival or Mucosal Lesions/ Ulcerations Neck: No Nodes, Thyroid Normal Size and Texture Lungs: Rales, Rhonchi, Wheezes Cardiovascular: Regular rate, Regular Rhythm, Normal S1, Normal S2, No murmurs Abdomen: Bowel Sounds Present, Soft, Non Tender, Non-Distended Psych/Mental Status: Normal Affect, Appropriate Vital Signs Temp Pulse Resp BP Pulse Ox 36.6 C 77 16 160/68 H 96 01/24/18 09:25 01/24/18 11:50 01/24/18 09:25 01/24/18 09:25 01/24/18 09:25 Oxygen Flow Rate (L/min) 2 Oxygen Delivery Method Room Air Weight: 79.8 kg Body Mass Index (BMI) 31.1 Intake and Output for Last 24 Hours 01/22/18 01/23/18 01/24/18 23:59 23:59 23:59 Intake Total 2432 / 2432 2060 / 2060 Output Total 1200 / 1200 2450 / 2450 Balance 1232 / 1232 -390 / -390 Microbiology Past 72 Hours 01/23/18 02:45 Urine Culture - Preliminary Urine, Clean Catch GNR lactose neurology tech POC Glucose 01/24/18 01/24/18 01/23/18 12:04 06:44 21:27 POC Glucose 273 H 191 H 386 H 01/23/18 16:47 POC Glucose 217 H Assessment/Plan Patient seen and examined independently. Data reviewed. I agree with the above note by the physician press assistant and feeder. 1. Intractable back pain * Patient gives essentially no effort in trying to move her legs and comply with lower extremity exam so I question if there is any kind of radicular component. * Reviewing the patient's x-rays of her lumbar spine showed no evidence of any compression fracture * Pain management is on consultation and Dr. Ruelas increased the hydromorphone in her pump. * Pt reporting little to no relief. Unfortunately, I doubt her claims. 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 Suspected pneumococcal pneumonia * I personally reviewed the patient's CAT scan that shows right lower lobe infiltrate * Patient will be on empiric azithromycin and Rocephin * Check urine studies for strep and Legionella * Check sputum culture * Pulmonary toilet * change to oral upon discharge. 3. Debility with falls * Unclear specifically what all going on with her but part of my concern is polypharmacy. I expressed as much to the patient and have recommended a taper of her benzodiazepines. 4. Anxiety * Patient asked specifically what to treat her anxiety if not benzodiazepines. She mentioned BuSpar as an option and is said that could be an option then she quickly stated that did not work for her. I did talk to her specifically about long-term benzodiazepine use and how they are poor choice for treating anxiety. I have discussed with her at length about the weaning process of benzodiazepines. I feel that it is necessary to begin the weaning of benzodiazepines given her falls and I am very concerned about polypharmacy. Patient reluctantly though not explicitly agreed to proceeding with that. Patient's urinalysis was reviewed and there is no UTI. UTI is ruled out. Code Visit Inpatient E&M: 21095 Subs Hosp L2
[2018-01-24] MEDS: 0.9% NaCl Peripheral Flush Adult/Peds IV (15:47)
[2018-01-24] MEDS: Insulin Lispro 100 UNIT/ML INSULN.PEN 10 UNIT SC (16:30)
--- NOTE | 2018-01-24 17:01 | CHAPLAIN ---
Type of Pastoral Visit ___ Initial Visit _x__ Follow-up Visit ___ On-call Visit ___ General Patient Visit ___ Spiritual Assessment ___ Family Conference ___ Bereavement ___ Rapid Response ___ Code Blue ___ Other (describe below) Pastoral Care Referral From _x__ Patient ___ Family _x__ Nurse ___ Physician ___ Manager Of School ___ Sanitation Lead _x__ Other (describe below) Sacrament/Intervention _x__ Active listening ___ Anointing ___ Moravian ___ Bereavement ___ Communion ___ Rossy exploration ___ _x__ Life review _x__ Prayer ___ Reconciliation ___ Sacrament of Sick _x__ Supportive presence ___ Wedding ___ Other (describe below) Pastoral Comments patient made request to RN and TREATING ENGINEER for spiritual support; pt had also asked for a Bible; gave her a Bible and time to be supportive and offer prayer
[2018-01-24] MEDS: LORazepam 1 MG Tablet PO (17:21)
[2018-01-24 18:06] LABS: Bedside Glucose 232 mg/dL (70-110)
[2018-01-24] MEDS: Atorvastatin Calcium 80 MG Tablet PO (21:00)
[2018-01-24 22:36] LABS: Bedside Glucose 260 mg/dL (70-110)
[2018-01-25] VITALS (8 sets, daily range): BP systolic 126–149; BP diastolic 64–84; PULSE 54–81; RESP 10–20; TEMP 36–37.1; O2SAT 92–97
[2018-01-25] MEDS: oxyCODONE 5 MG Tablet PO ×3 (03:11→20:52)
[2018-01-25] MEDS: Sucralfate 1 GM Tablet PO ×2 (06:34→15:08)
[2018-01-25] MEDS: Ipratropium/Albuterol Sulfate 3 ML AMPUL.NEB INHALATION ×2 (07:30→13:29)
[2018-01-25 07:46] LABS: Bedside Glucose 183 mg/dL (70-110)
[2018-01-25] MEDS: LORazepam 1 MG Tablet PO ×2 (09:42→20:53)
[2018-01-25] MEDS: OLANZapine 2.5 MG Tablet 7.5 MG PO ×2 (09:43→20:52)
[2018-01-25] MEDS: Docusate Sodium 100 MG Capsule PO ×2 (09:44→20:53)
[2018-01-25] MEDS: Ferrous Sulfate 325 MG Tablet PO ×2 (09:44→17:25)
[2018-01-25] MEDS: predniSONE 20 MG Tablet 40 MG PO (09:44)
[2018-01-25] MEDS: guaiFENesin 1,200 MG Tablet 1200 MG PO ×2 (09:45→20:52)
[2018-01-25] MEDS: Clopidogrel Bisulfate 75 MG Tablet PO (09:45)
[2018-01-25] MEDS: Azithromycin 250 MG Tablet 500 MG PO (09:45)
[2018-01-25] MEDS: FLUoxetine 20 MG Capsule 40 MG PO (09:45)
[2018-01-25] MEDS: Aspirin 81 MG TAB.CHEW PO (09:46)
[2018-01-25] MEDS: Tolterodine Tartrate 2 MG CAP.SA PO (09:46)
[2018-01-25] MEDS: Empagliflozin 25 MG Tablet PO (09:46)
[2018-01-25] MEDS: Insulin Lispro 100 UNIT/ML INSULN.PEN 10 UNIT SC ×3 (09:47→17:25)
[2018-01-25] MEDS: Ceftriaxone 1 GM/50 ML BAG IV (09:48)
[2018-01-25 10:16] LABS: Bedside Glucose 144 mg/dL (70-110)
[2018-01-25] MEDS: Acetaminophen 325 MG Tablet 650 MG PO (12:03)
[2018-01-25] MEDS: Insulin Lispro 100 UNIT/ML INSULN.PEN SC ×3 (12:03→20:57)
[2018-01-25 12:31] LABS: Bedside Glucose 211 mg/dL (70-110)
--- NOTE | 2018-01-25 13:13 | PCM.PROGNOTE ---
<Aurelio Mcconnell - Last Filed: 01/25/18 13:13> Subjective: Patient remained severely weak, was able to stand and take very small steps to the chair with PT assistance, observed patient attempting to walk with walker with physical therapy and she was only able to take a couple steps which were very unsteady and very weak with assistance before she had to sit back down. She has some pain in her left leg. She is concerned that she will never have 0 pain ever again. She has significant pain control as she was able to work with physical therapy with minimal worsening of her pain. No fevers or chills. Her breathing is significantly improved. She has a productive cough with clear sputum. - Physical Exam General: Alert, Oriented x3, Cooperative HEENT: Atraumatic, PERRLA, EOMI, Normocephalic Neck: Supple, No JVD, Negative Carotid Bruits Lungs: Diminished, Rales - faint, BL bases. Cardiovascular: Regular rate, No murmurs Abdomen: Bowel Sounds Present, Soft, Non Tender Extremities: No edema, Capillary Refill Less than 3 Seconds Skin: No rashes, No breakdown Musculoskeletal: No Tenderness to Palpation of Joints or Extremities Neurological: Cranial nerves II-XII grossly intact Psych/Mental Status: Normal Affect, Appropriate, Alert and oriented to time, place, person, mood and affect Vital Signs Temp Pulse Resp BP Pulse Ox 98.7 F 69 20 H 127/64 H 97 01/25/18 09:25 01/25/18 09:25 01/25/18 09:25 01/25/18 09:25 01/25/18 09:25 Oxygen Flow Rate (L/min) 2 Oxygen Delivery Method Room Air Weight: 79.8 kg Body Mass Index (BMI) 31.1 Intake and Output for Last 24 Hours 01/23/18 01/24/18 01/25/18 23:59 23:59 23:59 Intake Total 2432 / 2432 3291 / 3291 470 / 470 Output Total 1200 / 1200 2450 / 2450 850 / 850 Balance 1232 / 1232 841 / 841 -380 / -380 Microbiology Past 72 Hours 01/23/18 02:45 Urine Culture - Preliminary Urine, Clean Catch Klebsiella pneumoniae sp pneum POC Glucose 01/25/18 01/25/18 01/25/18 11:56 09:39 06:48 POC Glucose 211 H 144 H 183 H 01/24/18 01/24/18 20:48 16:22 POC Glucose 260 H 232 H Medical Necessity - Tobacco Use Smoking Status: Current every day smoker Tobacco Use: Cigarettes Assessment/Plan 1. Intractable back/hip/leg pain - acute on chronic pain. Now with inability to walk or stand. PTOT. Recent imaging per Dr. Ruelas. She has a pain pump. She will need to follow-up with Dr. Ruelas as an outpatient. She remains significantly debilitated and will likely need placed 2. Acute UTI -ruled out. she does have culture growing ESBL klebsiella, however this is not felt to be acute infectious process. 3. Acute acute right lower lobe pneumonia suspected pneumococcal, present on admission, and associated acute COPD exacerbation -pneumonia on CTA. Patient on azithromycin and Rocephin. Improved. Swith to PO abx. Completed 3 days of azithromycin ?500 mg. Rocephin to cefdinir. 4. Nicotine abuse - requests patch for dc. 5. Anemia with iron def - po iron 6. HLD - statin 7. GERD - PPI, carafate. 8. T2DM - continue current therapy. 9. Hx CVA - continue asa/statin/plavix 10. Schizophrenia and anxiety zyprexa, ativan, prozac DVT ppx: scd's DC planning: precert pending for SNF. This patient was seen by Aurelio Mcconnell PA-C under the supervision of Doctor Michael. <Festus Rodriguez - Last Filed: 01/25/18 13:27> Subjective: States he back pain is unrelieved with medications. - Physical Exam General: Alert, Cooperative HEENT: Atraumatic, Normocephalic Lungs: Diminished, Rales Cardiovascular: Regular rate, Regular Rhythm, Normal S1, Normal S2 Abdomen: Bowel Sounds Present, Soft, Non Tender Extremities: No edema, No Calf Tenderness Skin: No rashes, No breakdown Psych/Mental Status: Normal Affect, Appropriate Vital Signs Temp Pulse Resp BP Pulse Ox 37.1 C 69 20 H 127/64 H 97 01/25/18 09:25 01/25/18 09:25 01/25/18 09:25 01/25/18 09:25 01/25/18 09:25 Oxygen Flow Rate (L/min) 2 Oxygen Delivery Method Room Air Weight: 79.8 kg Body Mass Index (BMI) 31.1 Intake and Output for Last 24 Hours 01/23/18 01/24/18 01/25/18 23:59 23:59 23:59 Intake Total 2432 / 2432 3291 / 3291 470 / 470 Output Total 1200 / 1200 2450 / 2450 850 / 850 Balance 1232 / 1232 841 / 841 -380 / -380 Microbiology Past 72 Hours 01/23/18 02:45 Urine Culture - Preliminary Urine, Clean Catch Klebsiella pneumoniae sp pneum POC Glucose 01/25/18 01/25/18 01/25/18 11:56 09:39 06:48 POC Glucose 211 H 144 H 183 H 01/24/18 01/24/18 20:48 16:22 POC Glucose 260 H 232 H Assessment/Plan Patient seen and examined independently. Data reviewed. I agree with the above note by the physician care team assistant. 1. Intractable back pain Patient gives essentially no effort in trying to move her legs and comply with lower extremity exam so I question if there is any kind of radicular component. Reviewing the patient's x-rays of her lumbar spine showed no evidence of any compression fracture Pain management is on consultation and Dr. Ruelas increased the hydromorphone in her pump. Pt reporting little to no relief. Unfortunately, I doubt her claims. 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 Suspected pneumococcal pneumonia I personally reviewed the patient's CAT scan that shows right lower lobe infiltrate Patient will be on empiric azithromycin and Rocephin Check urine studies for strep and Legionella Check sputum culture Pulmonary toilet change to oral upon discharge. 3. Debility with falls Unclear specifically what all going on with her but part of my concern is polypharmacy. I expressed as much to the patient and have recommended a taper of her benzodiazepines. 4. Anxiety Patient asked specifically what to treat her anxiety if not benzodiazepines. She mentioned BuSpar as an option and is said that could be an option then she quickly stated that did not work for her. I did talk to her specifically about long-term benzodiazepine use and how they are poor choice for treating anxiety. I have discussed with her at length about the weaning process of benzodiazepines. I feel that it is necessary to begin the weaning of benzodiazepines given her falls and I am very concerned about polypharmacy. Patient reluctantly though not explicitly agreed to proceeding with that. Patient's urinalysis was reviewed and there is no UTI. UTI is ruled out. Code Visit Inpatient E&M: 62911 Subs Hosp L2
--- NOTE | 2018-01-25 13:20 | PN_ITS ---
<Aurelio Mcconnell - Last Filed: 01/25/18 13:13> Subjective: Patient remained severely weak, was able to stand and take very small steps to the chair with PT assistance, observed patient attempting to walk with walker with physical therapy and she was only able to take a couple steps which were very unsteady and very weak with assistance before she had to sit back down. She has some pain in her left leg. She is concerned that she will never have 0 pain ever again. She has significant pain control as she was able to work with physical therapy with minimal worsening of her pain. No fevers or chills. Her breathing is significantly improved. She has a productive cough with clear sputum. - Physical Exam General: Alert, Oriented x3, Cooperative HEENT: Atraumatic, PERRLA, EOMI, Normocephalic Neck: Supple, No JVD, Negative Carotid Bruits Lungs: Diminished, Rales - faint, BL bases. Cardiovascular: Regular rate, No murmurs Abdomen: Bowel Sounds Present, Soft, Non Tender Extremities: No edema, Capillary Refill Less than 3 Seconds Skin: No rashes, No breakdown Musculoskeletal: No Tenderness to Palpation of Joints or Extremities Neurological: Cranial nerves II-XII grossly intact Psych/Mental Status: Normal Affect, Appropriate, Alert and oriented to time, place, person, mood and affect Vital Signs Temp Pulse Resp BP Pulse Ox 98.7 F 69 20 H 127/64 H 97 01/25/18 09:25 01/25/18 09:25 01/25/18 09:25 01/25/18 09:25 01/25/18 09:25 Oxygen Flow Rate (L/min) 2 Oxygen Delivery Method Room Air Weight: 79.8 kg Body Mass Index (BMI) 31.1 Intake and Output for Last 24 Hours 01/23/18 01/24/18 01/25/18 23:59 23:59 23:59 Intake Total 2432 / 2432 3291 / 3291 470 / 470 Output Total 1200 / 1200 2450 / 2450 850 / 850 Balance 1232 / 1232 841 / 841 -380 / -380 Microbiology Past 72 Hours 01/23/18 02:45 Urine Culture - Preliminary Urine, Clean Catch Klebsiella pneumoniae sp pneum POC Glucose 01/25/18 01/25/18 01/25/18 11:56 09:39 06:48 POC Glucose 211 H 144 H 183 H 01/24/18 01/24/18 20:48 16:22 POC Glucose 260 H 232 H Medical Necessity - Tobacco Use Smoking Status: Current every day smoker Tobacco Use: Cigarettes Assessment/Plan 1. Intractable back/hip/leg pain - acute on chronic pain. Now with inability to walk or stand. PTOT. Recent imaging per Dr. Ruelas. She has a pain pump. She will need to follow-up with Dr. Ruelas as an outpatient. She remains significantly debilitated and will likely need placed 2. Acute UTI -ruled out. she does have culture growing ESBL klebsiella, however this is not felt to be acute infectious process. 3. Acute acute right lower lobe pneumonia suspected pneumococcal, present on admission, and associated acute COPD exacerbation -pneumonia on CTA. Patient on azithromycin and Rocephin. Improved. Swith to PO abx. Completed 3 days of azithromycin ?500 mg. Rocephin to cefdinir. 4. Nicotine abuse - requests patch for dc. 5. Anemia with iron def - po iron 6. HLD - statin 7. GERD - PPI, carafate. 8. T2DM - continue current therapy. 9. Hx CVA - continue asa/statin/plavix 10. Schizophrenia and anxiety zyprexa, ativan, prozac DVT ppx: scd's DC planning: precert pending for SNF. This patient was seen by Aurelio Mcconnell PA-C under the supervision of Doctor Michael. <Festus Rodriguez - Last Filed: 01/25/18 13:27> Subjective: States he back pain is unrelieved with medications. - Physical Exam General: Alert, Cooperative HEENT: Atraumatic, Normocephalic Lungs: Diminished, Rales Cardiovascular: Regular rate, Regular Rhythm, Normal S1, Normal S2 Abdomen: Bowel Sounds Present, Soft, Non Tender Extremities: No edema, No Calf Tenderness Skin: No rashes, No breakdown Psych/Mental Status: Normal Affect, Appropriate Vital Signs Temp Pulse Resp BP Pulse Ox 37.1 C 69 20 H 127/64 H 97 01/25/18 09:25 01/25/18 09:25 01/25/18 09:25 01/25/18 09:25 01/25/18 09:25 Oxygen Flow Rate (L/min) 2 Oxygen Delivery Method Room Air Weight: 79.8 kg Body Mass Index (BMI) 31.1 Intake and Output for Last 24 Hours 01/23/18 01/24/18 01/25/18 23:59 23:59 23:59 Intake Total 2432 / 2432 3291 / 3291 470 / 470 Output Total 1200 / 1200 2450 / 2450 850 / 850 Balance 1232 / 1232 841 / 841 -380 / -380 Microbiology Past 72 Hours 01/23/18 02:45 Urine Culture - Preliminary Urine, Clean Catch Klebsiella pneumoniae sp pneum POC Glucose 01/25/18 01/25/18 01/25/18 11:56 09:39 06:48 POC Glucose 211 H 144 H 183 H 01/24/18 01/24/18 20:48 16:22 POC Glucose 260 H 232 H Assessment/Plan Patient seen and examined independently. Data reviewed. I agree with the above note by the physician dermatology physician assistant. 1. Intractable back pain * Patient gives essentially no effort in trying to move her legs and comply with lower extremity exam so I question if there is any kind of radicular component. * Reviewing the patient's x-rays of her lumbar spine showed no evidence of any compression fracture * Pain management is on consultation and Dr. Ruelas increased the hydromorphone in her pump. * Pt reporting little to no relief. Unfortunately, I doubt her claims. 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 Suspected pneumococcal pneumonia * I personally reviewed the patient's CAT scan that shows right lower lobe infiltrate * Patient will be on empiric azithromycin and Rocephin * Check urine studies for strep and Legionella * Check sputum culture * Pulmonary toilet * change to oral upon discharge. 3. Debility with falls * Unclear specifically what all going on with her but part of my concern is polypharmacy. I expressed as much to the patient and have recommended a taper of her benzodiazepines. 4. Anxiety * Patient asked specifically what to treat her anxiety if not benzodiazepines. She mentioned BuSpar as an option and is said that could be an option then she quickly stated that did not work for her. I did talk to her specifically about long-term benzodiazepine use and how they are poor choice for treating anxiety. I have discussed with her at length about the weaning process of benzodiazepines. I feel that it is necessary to begin the weaning of benzodiazepines given her falls and I am very concerned about polypharmacy. Patient reluctantly though not explicitly agreed to proceeding with that. Patient's urinalysis was reviewed and there is no UTI. UTI is ruled out. Code Visit Inpatient E&M: 88279 Subs Hosp L2
[2018-01-25] MEDS: Pregabalin 50 MG Capsule 100 MG PO ×2 (15:13→20:53)
[2018-01-25] MEDS: Lidocaine 5% Patch 1 PATCH TOPICAL (17:31)
[2018-01-25 17:46] LABS: Bedside Glucose 239 mg/dL (70-110)
[2018-01-25] MEDS: Atorvastatin Calcium 80 MG Tablet PO (20:52)
[2018-01-25 21:36] LABS: Bedside Glucose 183 mg/dL (70-110)
[2018-01-26] VITALS (8 sets, daily range): BP systolic 116–152; BP diastolic 64–75; PULSE 55–93; RESP 12–20; TEMP 36.2–36.6; O2SAT 94–97
[2018-01-26] MEDS: Ipratropium/Albuterol Sulfate 3 ML AMPUL.NEB INHALATION ×4 (00:40→19:30)
[2018-01-26] MEDS: Pregabalin 50 MG Capsule 100 MG PO ×3 (06:38→21:48)
[2018-01-26] MEDS: Sucralfate 1 GM Tablet PO ×3 (06:38→16:46)
[2018-01-26 07:10] LABS: Bedside Glucose 132 mg/dL (70-110)
[2018-01-26] MEDS: Insulin Lispro 100 UNIT/ML INSULN.PEN 10 UNIT SC ×3 (08:55→16:46)
[2018-01-26] MEDS: oxyCODONE 5 MG Tablet PO ×2 (08:56→15:06)
[2018-01-26] MEDS: guaiFENesin 1,200 MG Tablet 1200 MG PO ×2 (08:57→21:40)
[2018-01-26] MEDS: Clopidogrel Bisulfate 75 MG Tablet PO (08:57)
[2018-01-26] MEDS: Tolterodine Tartrate 2 MG CAP.SA PO (08:57)
[2018-01-26] MEDS: Docusate Sodium 100 MG Capsule PO ×2 (08:57→21:39)
[2018-01-26] MEDS: LORazepam 1 MG Tablet PO ×2 (08:57→16:46)
[2018-01-26] MEDS: predniSONE 20 MG Tablet 30 MG PO (08:57)
[2018-01-26] MEDS: Empagliflozin 25 MG Tablet PO (08:57)
[2018-01-26] MEDS: Acetaminophen 325 MG Tablet 650 MG PO ×2 (08:57→21:41)
[2018-01-26] MEDS: OLANZapine 2.5 MG Tablet 7.5 MG PO ×2 (08:58→21:40)
[2018-01-26] MEDS: Aspirin 81 MG TAB.CHEW PO (08:58)
[2018-01-26] MEDS: Ferrous Sulfate 325 MG Tablet PO ×2 (08:58→16:46)
[2018-01-26] MEDS: FLUoxetine 20 MG Capsule 40 MG PO (08:58)
[2018-01-26] MEDS: Cefdinir 300 MG Capsule PO ×2 (10:21→21:39)
[2018-01-26] MEDS: Magnesium Hydroxide 30 ML UDC PO (11:32)
[2018-01-26 12:31] LABS: Bedside Glucose 200 mg/dL (70-110)
[2018-01-26] MEDS: Insulin Lispro 100 UNIT/ML INSULN.PEN SC ×3 (12:43→21:48)
--- NOTE | 2018-01-26 13:13 | PN_ITS ---
<Aurelio Mcconnell - Last Filed: 01/26/18 13:11> Subjective: Patient resting comfortably in chair at bedside, reports improvement overall in her breathing, cough, weakness, instability. No fevers or chills. Cough is now nonproductive. No wheezing. - Physical Exam General: Alert, Oriented x3, Cooperative HEENT: Atraumatic, PERRLA, EOMI, Normocephalic Neck: Supple, No JVD, Negative Carotid Bruits Lungs: Diminished Cardiovascular: Regular rate, No murmurs Abdomen: Bowel Sounds Present, Soft, Non Tender Extremities: No edema, Capillary Refill Less than 3 Seconds Skin: No rashes, No breakdown Musculoskeletal: No Tenderness to Palpation of Joints or Extremities Neurological: Cranial nerves II-XII grossly intact Psych/Mental Status: Normal Affect, Appropriate, Alert and oriented to time, place, person, mood and affect Vital Signs Temp Pulse Resp BP Pulse Ox 97.2 F L 90 18 122/75 H 94 01/26/18 08:54 01/26/18 08:54 01/26/18 08:54 01/26/18 08:54 01/26/18 08:54 Oxygen Flow Rate (L/min) 2 Oxygen Delivery Method Room Air Weight: 79.8 kg Body Mass Index (BMI) 31.1 Intake and Output for Last 24 Hours 01/24/18 01/25/18 01/26/18 23:59 23:59 23:59 Intake Total 3291 / 3291 1110 / 1110 60 / 60 Output Total 2450 / 2450 2775 / 2775 1050 / 1050 Balance 841 / 841 -1665 / -1665 -990 / -990 Microbiology Past 72 Hours 01/23/18 02:45 Urine Culture - Final Urine, Clean Catch Klebsiella pneumoniae sp pneum 01/25/18 15:45 Streptococcus pneumoniae Antigen (M - Final Urine, Clean Catch 01/25/18 15:45 Legionella Antigen - Final Urine, Clean Catch POC Glucose 01/26/18 01/26/18 01/25/18 11:30 06:41 20:57 POC Glucose 200 H 132 H 183 H 01/25/18 17:21 POC Glucose 239 H Medical Necessity - Tobacco Use Smoking Status: Current every day smoker Tobacco Use: Cigarettes Assessment/Plan 1. Intractable back/hip/leg pain - acute on chronic pain. Pain is well controlled at this point. Now with inability to walk or stand. PTOT. Recent imaging per Dr. Ruelas. She has a pain pump. She will need to follow-up with Dr. Ruelas as an outpatient. She remains significantly debilitated and will likely need placed 2. Acute UTI -ruled out. she does have culture growing ESBL klebsiella, however this is not felt to be acute infectious process. 3. Acute acute right lower lobe pneumonia suspected pneumococcal, present on admission, and associated acute COPD exacerbation -pneumonia on CTA. Continue Omnicef, steroid taper, aerosol therapy, Pap valve and incentive spirometer. 4. Nicotine abuse - requests patch for dc. 5. Anemia with iron def - po iron 6. HLD - statin 7. GERD - PPI, carafate. 8. T2DM -adjust insulins as appropriate, continue current therapy. 9. Hx CVA - continue asa/statin/plavix 10. Schizophrenia and anxiety zyprexa, ativan, prozac DVT ppx: scd's DC planning: precert pending for SNF. Will likely be discharged tomorrow. This patient was seen by Aurelio Mcconnell PA-C under the supervision of Doctor Michael. <Festus Rodriguez - Last Filed: 01/26/18 14:31> Subjective: No claiming of severe back pain and leg pain and nothing helps but then states that the Flexeril actually helped her a lot. - Physical Exam General: Alert, Cooperative HEENT: Atraumatic, Normocephalic Lungs: Clear to auscultation, Diminished Cardiovascular: Regular rate, Regular Rhythm, Normal S1, Normal S2 Abdomen: Bowel Sounds Present, Soft, Non Tender Psych/Mental Status: Normal Affect, Appropriate Vital Signs Temp Pulse Resp BP Pulse Ox 36.2 C L 58 L 16 122/75 H 94 01/26/18 08:54 01/26/18 13:21 01/26/18 13:21 01/26/18 08:54 01/26/18 08:54 Oxygen Flow Rate (L/min) 2 Oxygen Delivery Method Room Air Weight: 79.8 kg Body Mass Index (BMI) 31.1 Intake and Output for Last 24 Hours 01/24/18 01/25/18 01/26/18 23:59 23:59 23:59 Intake Total 3291 / 3291 1110 / 1110 60 / 60 Output Total 2450 / 2450 2775 / 2775 1050 / 1050 Balance 841 / 841 -1665 / -1665 -990 / -990 Microbiology Past 72 Hours 01/23/18 02:45 Urine Culture - Final Urine, Clean Catch Klebsiella pneumoniae sp pneum 01/25/18 15:45 Streptococcus pneumoniae Antigen (M - Final Urine, Clean Catch 01/25/18 15:45 Legionella Antigen - Final Urine, Clean Catch POC Glucose 01/26/18 01/26/18 01/25/18 11:30 06:41 20:57 POC Glucose 200 H 132 H 183 H 01/25/18 17:21 POC Glucose 239 H Assessment/Plan Patient seen and examined independently. Data reviewed. I agree with the above note by the physician assistant track coach. 1. Intractable back pain * Patient gives essentially no effort in trying to move her legs and comply with lower extremity exam so I question if there is any kind of radicular component. * Reviewing the patient's x-rays of her lumbar spine showed no evidence of any compression fracture * Pain management is on consultation and Dr. Ruelas increased the hydromorphone in her pump * Pt reporting little to no relief. Unfortunately, I doubt her claims. 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 Suspected pneumococcal pneumonia * I personally reviewed the patient's CAT scan that shows right lower lobe infiltrate * Patient will be on empiric azithromycin and Cefdinir and would treat through January 30 * urine studies for strep and Legionella negative * Pulmonary toilet * Patient has specifically what this pneumonia was told her that there may be community acquired pneumonia but also could be aspiration pneumonia. Told her my concern for the aspiration could be the fact that she is on numerous potent medications and is explained to her before a few of the Ativan should be weaned to off over a period of several weeks. 3. Debility with falls * Unclear specifically what all going on with her but part of my concern is polypharmacy. I expressed as much to the patient and have recommended a taper of her benzodiazepines. 4. Anxiety * Patient asked specifically what to treat her anxiety if not benzodiazepines. She mentioned BuSpar as an option and is said that could be an option then she quickly stated that did not work for her. I did talk to her specifically about long-term benzodiazepine use and how they are poor choice for treating anxiety. I have discussed with her at length about the weaning process of benzodiazepines. I feel that it is necessary to begin the weaning of benzodiazepines given her falls and I am very concerned about polypharmacy. Patient reluctantly though not explicitly agreed to proceeding with that. 5. Debility * Patient is still awaiting precertification. Patient has been medically stable since 13 to be discharged but still waiting on precertification to be completed. Anticipated discharge will be the or . Patient's urinalysis was reviewed and there is no UTI. UTI is ruled out. Urine culture growing out Klebsiella but may be just colonization or contamination without being on overt urinary tract infection. Code Visit Inpatient E&M: 11907 Subs Hosp L2
[2018-01-26 16:56] LABS: Bedside Glucose 193 mg/dL (70-110)
--- NOTE | 2018-01-26 17:59 | NURSING ---
Addendum entered by Rohini Kathleen 01/26/18 18:03: Pt's sister, Sintia Butt, came to floor and talked with this nurse. Sister states she has been the POA for patient in the past and helped her manage her medications and helped with her care after the pt had a stroke. Sister states I got her off Dilaudid and all that stuff for a while. Sister concerned about pt's parents being listed as contacts for patient, stating They are old and really don't understand medical stuff at all. Original Note: Pt's sister, Sintia Butt, here at this time. Sister would like added to patient's chart as a family emergency contact. This nurse discussed this with sister and with pt. Pt agreeable to having sister, Sintia Butt, listed as a contact on her chart but concerned that this would mean sister would make decisions for her. Discussed with Pt that having sister listed as a family contact would not mean that her sister could make decisions for her, but would mean we could update her on pt's condition and contact her in case of an emergency with pt. Pt agreeable to same.
[2018-01-26] MEDS: Atorvastatin Calcium 80 MG Tablet PO (21:39)
[2018-01-26 22:35] LABS: Bedside Glucose 150 mg/dL (70-110)
[2018-01-27 01:25] VITALS: PULSE 69; RESP 12
[2018-01-27] MEDS: Ipratropium/Albuterol Sulfate 3 ML AMPUL.NEB INHALATION ×3 (01:25→13:23)
[2018-01-27 03:09] VITALS: BP 125/73; PULSE 64; RESP 16; TEMP 36.8; O2SAT 95
[2018-01-27] MEDS: Sucralfate 1 GM Tablet PO ×3 (06:45→17:13)
[2018-01-27] MEDS: Pregabalin 50 MG Capsule 100 MG PO ×2 (06:45→15:13)
[2018-01-27] MEDS: oxyCODONE 5 MG Tablet PO (06:52)
[2018-01-27 07:06] LABS: Bedside Glucose 157 mg/dL (70-110)
[2018-01-27 07:15] VITALS: PULSE 66; RESP 19; O2SAT 94
[2018-01-27] MEDS: Insulin Lispro 100 UNIT/ML INSULN.PEN 10 UNIT SC ×3 (08:32→17:12)
[2018-01-27] MEDS: Insulin Lispro 100 UNIT/ML INSULN.PEN SC ×3 (08:32→17:12)
[2018-01-27] MEDS: Aspirin 81 MG TAB.CHEW PO (08:33)
[2018-01-27] MEDS: Ferrous Sulfate 325 MG Tablet PO ×2 (08:33→17:13)
[2018-01-27] MEDS: predniSONE 20 MG Tablet 30 MG PO (08:34)
[2018-01-27] MEDS: Docusate Sodium 100 MG Capsule PO (08:34)
[2018-01-27] MEDS: Cefdinir 300 MG Capsule PO (08:36)
[2018-01-27] MEDS: LORazepam 1 MG Tablet PO (08:41)
[2018-01-27 08:47] VITALS: BP 128/70; PULSE 76; RESP 16; TEMP 36.8; O2SAT 95
[2018-01-27] MEDS: Empagliflozin 25 MG Tablet PO (08:50)
[2018-01-27] MEDS: guaiFENesin 1,200 MG Tablet 1200 MG PO (08:51)
[2018-01-27] MEDS: FLUoxetine 20 MG Capsule 40 MG PO (08:52)
[2018-01-27] MEDS: OLANZapine 2.5 MG Tablet 7.5 MG PO (08:52)
[2018-01-27] MEDS: Clopidogrel Bisulfate 75 MG Tablet PO (08:53)
[2018-01-27] MEDS: Tolterodine Tartrate 2 MG CAP.SA PO (08:53)
--- NOTE | 2018-01-27 09:00 | CASEMGMT ---
CLARENCE received a voice mail on Saturday after 5p indicating pre-cert was obtained for patient. CLARENCE called Tiara at [facility] and she is checking to see if we need re-authorization. CLARENCE faxed updates to [facility]. Plan: [facility] pending insurance Ольга KHAN
[2018-01-27 12:16] LABS: Bedside Glucose 192 mg/dL (70-110)
--- NOTE | 2018-01-27 12:18 | PCM.TXEXTCAR ---
- Diet 01/23/18 00:48 Diet: Calorie Controlled How many daily calories?: 1800 calorie - Routine Orders/Code Status Suppository Type: Dulcolax 10mg Suppository Frequency: Daily PRN Routine Lab Work: CBC - 3 days, BMP - 3 days Code Status: Full Code - Therapies Physical Therapy: Eval and Treat Occupational Therapy: Eval and Treat - Problem/Diagnosis (1) PNA (pneumonia) Status: Acute Current Visit: Yes (2) Intractable back pain Status: Acute Current Visit: Yes (3) COPD exacerbation Status: Acute Current Visit: Yes (4) Anxiety Status: Chronic Current Visit: Yes (5) Iron deficiency Status: Acute Current Visit: Yes (6) COPD (chronic obstructive pulmonary disease) Status: Chronic Current Visit: Yes (7) History of stroke Status: Chronic Current Visit: Yes (8) Diabetes mellitus Status: Chronic Current Visit: No (9) Hyperlipidemia Status: Chronic Current Visit: No (10) Esophageal reflux Status: Chronic Current Visit: No (11) History of tobacco use Status: Chronic Current Visit: No (12) Schizophrenia Status: Chronic Current Visit: No (13) Chronic pain Status: Chronic Current Visit: No - Allergies/Procedures Done in Hospital Allergies/Adverse Reactions: Allergies Iodinated Contrast- Oral and IV Dye [Iodinated Contrast Media - IV Dye] Allergy (Verified 01/22/18 21:20) Hives amoxicillin trihydrate [From Augmentin] Adverse Reaction (Verified 01/22/18 21:20) Itching hydrocodone [From Vicodin] Adverse Reaction (Verified 01/22/18 21:20) Unknown potassium clavulanate [From Augmentin] Adverse Reaction (Verified 01/22/18 21:20) Itching prednisone Adverse Reaction (Verified 01/22/18 21:20) Unknown shellfish derived Adverse Reaction (Verified 01/22/18 21:20) Itching Procedures: None - Type of Care/Length of Stay Estimated LOS: Convalescent Care Less Than 30 days Type of Care Needed: Skilled Rehab Potential: Fair Prognosis: Fair - Additional Orders/Day of Discharge Day of Discharge: 01/27/18 - Dietary and Speech Recommendations Dietitian Recommendations/Changes: Continue 1800 Calorie Controlled diet. - Follow Up Care Primary Care Physician: Ruddy Brandt Chi, MD [Primary Care Provider] - Please follow up with your Primary Care Physician in: 2 weeks Please Follow Up With: Lauren Ruelas MD When: Call for soonest appointment
--- NOTE | 2018-01-27 12:21 | TREXTCAR_ITS ---
- Diet 01/23/18 00:48 Diet: Calorie Controlled How many daily calories?: 1800 calorie - Routine Orders/Code Status Suppository Type: Dulcolax 10mg Suppository Frequency: Daily PRN Routine Lab Work: CBC - 3 days, BMP - 3 days Code Status: Full Code - Therapies Physical Therapy: Eval and Treat Occupational Therapy: Eval and Treat - Problem/Diagnosis (1) PNA (pneumonia) Status: Acute Current Visit: Yes (2) Intractable back pain Status: Acute Current Visit: Yes (3) COPD exacerbation Status: Acute Current Visit: Yes (4) Anxiety Status: Chronic Current Visit: Yes (5) Iron deficiency Status: Acute Current Visit: Yes (6) COPD (chronic obstructive pulmonary disease) Status: Chronic Current Visit: Yes (7) History of stroke Status: Chronic Current Visit: Yes (8) Diabetes mellitus Status: Chronic Current Visit: No (9) Hyperlipidemia Status: Chronic Current Visit: No (10) Esophageal reflux Status: Chronic Current Visit: No (11) History of tobacco use Status: Chronic Current Visit: No (12) Schizophrenia Status: Chronic Current Visit: No (13) Chronic pain Status: Chronic Current Visit: No - Allergies/Procedures Done in Hospital Allergies/Adverse Reactions: Allergies Iodinated Contrast- Oral and IV Dye [Iodinated Contrast Media - IV Dye] Allergy (Verified 01/22/18 21:20) Hives amoxicillin trihydrate [From Augmentin] Adverse Reaction (Verified 01/22/18 21: 20) Itching hydrocodone [From Vicodin] Adverse Reaction (Verified 01/22/18 21:20) Unknown potassium clavulanate [From Augmentin] Adverse Reaction (Verified 01/22/18 21:20 ) Itching prednisone Adverse Reaction (Verified 01/22/18 21:20) Unknown shellfish derived Adverse Reaction (Verified 01/22/18 21:20) Itching Procedures: None - Type of Care/Length of Stay Estimated LOS: Convalescent Care Less Than 30 days Type of Care Needed: Skilled Rehab Potential: Fair Prognosis: Fair - Additional Orders/Day of Discharge Day of Discharge: 01/27/18 - Dietary and Speech Recommendations Dietitian Recommendations/Changes: Continue 1800 Calorie Controlled diet. - Follow Up Care Primary Care Physician: Ruddy Brandt Chi, MD [Primary Care Provider] - Please follow up with your Primary Care Physician in: 2 weeks Please Follow Up With: Lauren Ruelas MD When: Call for soonest appointment
--- NOTE | 2018-01-27 12:26 | CASEMGMT ---
Received insurance approval for patient to go to [facility]. SW notified physician. Patient is ready for d/c. Ольга KHAN
[2018-01-27 13:23] VITALS: PULSE 65; RESP 18
[2018-01-27] MEDS: Ibuprofen 600 MG Tablet PO (15:13)
--- NOTE | 2018-01-27 16:16 | CASEMGMT ---
Addendum entered by Ольга Farnsworth 01/27/18 17:02: Called [facility] and patient will get picked up at 630 pm via cot Plan: d/c to [facility] under skilled level of care on a convalescent stay. [facility] transported her via cot. Ольга KHAN Original Note: Orders were faxed to [facility]. Convalescent was completed on [facility]. Ольга TROTTER CUSTOMER ASSISTANT
[2018-01-27 17:20] LABS: Bedside Glucose 271 mg/dL (70-110)
--- NOTE | 2018-01-27 17:41 | PCM.DC.SUM ---
Discharge Date and Diagnosis - Problem List Patient Problems: Active and Suspected Problems (Last Reviewed 06/28/17 @ 12:57 by Coretta Pino) PNA (pneumonia) (Acute) Intractable back pain (Acute) COPD exacerbation (Acute) Iron deficiency (Acute) Date of Admission: 01/23/18 Date of Discharge: 01/27/18 - Primary Discharge Diagnosis Active and Suspected Problems (Last Reviewed 06/28/17 @ 12:57 by Coretta Pino) PNA (pneumonia) (Acute)-community-acquired, suspected pneumococcal Intractable back pain (Acute) secondary to chronic degenerative spinal issues COPD exacerbation (Acute) secondary to community-acquired pneumonia Iron deficiency anemia Debility secondary to intractable back pain Schizoaffective disorder Anxiety Debility - Secondary Discharge Diagnosis Chronic Problems (Last Reviewed 06/28/17 @ 12:57 by Coretta Pino) Anxiety (Chronic) COPD (chronic obstructive pulmonary disease) (Chronic) History of stroke (Chronic) Diabetes mellitus (Chronic) Hyperlipidemia (Chronic) Esophageal reflux (Chronic) History of tobacco use (Chronic) Schizophrenia (Chronic) Chronic pain (Chronic) Hospital Course and Treatment Imaging Results: RAD/Chest 1 View (Portable) IMPRESSION: No acute cardiopulmonary disease. CT/CTA Chest W/WO Contrast IMPRESSION: No demonstrated pulmonary embolism, aneurysm, leak or arterial dissection submitted images. Low lung volume with new bilateral predominantly right lower lobe airspace disease and moderate component of volume loss. Suspect underlying inflammatory/infectious etiology with borderline sized right hilar and subcarinal lymph node. There is borderline cardiac size. Esophageal wall prominence. This can be further assessed with upper GI or endoscopy, not visualized on previous CT chest exam. Nonacute stable fracture right ninth lateral rib. Mild splenomegaly, small hiatal hernia, accessory splenic tissue, prior cholecystectomy are stable findings. Doppler LE Interpretation Summary There is no evidence of right lower extremity deep vein thrombosis. Right greater saphenous vein appears patent and compressible segmentally. Operations: None Procedures: None Summary of Care Provided: Physical exam on day of discharge: General: Resting comfortably NAD Psych: A/Ox3 normal affect HEENT: PEARRLA AT NC Neck: Supple NT CV: RRR no m/t/r/g/h Resp: CTA Abd: [id number] Soft NT no guarding or rigidity Ext: DP2+= no edema Skin: W/D normal turgor Lymph/Heme: No active bleeding or adenopathy Neuro: CN2-12 intact Hospital course: The patient is a 57 year old F who presented to the emergency room with severe bilateral hip thigh and leg pain. This been going on for about 4 days. She had just seen her paint and table edger Dr. Ruelas in the office who had refilled her pain pump however she had no significant relief. She was unable to walk her pain was so severe, she cannot stand. Prior to the start of her pain getting worse she had no issues getting around at home reportedly. She also was found to be hypoxic with a pulse ox of 85 on room air, chest x-ray was unremarkable however a follow-up CTA was done which did demonstrate right sided pneumonia. She had spinal imaging as an outpatient with Dr. Ruelas so no further imaging was done at this time. The patient also had leukocytosis. She was admitted to the hospital for cardiac monitoring and was treated for community-acquired pneumonia presumed streptococcal and intractable back thigh and leg pain, as well as COPD exacerbation secondary to the pneumonia.. She was treated with Rocephin and azithromycin for the pneumonia, Solu-Medrol transition to prednisone with aerosol therapy for the COPD, and as needed pain medications and physical therapy for her pain. Cultures did not demonstrate any specific organism. She was transitioned to oral Omnicef after completing 3 days of azithromycin and Rocephin. She initially required oxygenation however was successfully weaned off. Her pain was controlled and she was able to stand and ambulate with physical therapy assistance, she did require to assist and can only take a couple steps. She was agreeable to [facility] placement she also complained of some leg swelling while she was here and she underwent a Doppler of the lower extremities which was negative. She was discharged to [facility] in stable condition, she will need to follow-up with Dr. Ruelas as an outpatient for possible further intervention as soon as possible, she will also need to follow-up with her PCP in 1-2 weeks. This patient was seen by Aurelio Mcconnell PA-C under the supervision of Doctor Christensen. [] Discharge Diet: Low fat/ Low Cholesterol, 1800 Calorie Control Diet, 2000 mg Sodium Diet Discharge Activity: Return to Normal Activity Home Medications: Medications to take at Discharge Aspirin [Aspirin, Baby] 81 mg PO DAILY@0800 07/25/16 Atorvastatin Calcium [Lipitor] 80 mg PO QHS 07/25/16 Clopidogrel Bisulfate [Plavix] 75 mg PO DAILY 07/25/16 Dexlansoprazole [Dexilant] 60 mg PO DAILY 07/25/16 Dulaglutide [Trulicity] 1.5 mg SQ FR 07/25/16 Multivitamin with Minerals [Hair, Skin and Nails] 1 ea PO DAILY 07/25/16 Pregabalin [Lyrica] 100 mg PO TID 07/25/16 Insulin Degludec [Tresiba Flextouch U-100] 50 unit SQ DAILY 09/23/16 Cyclosporine [Restasis] 1 drop OP BID 04/08/17 Dapagliflozin/Metformin HCl [Xigduo Xr 5 mg-1,000 mg Tablet] 1 tablet PO BID 04/08/17 Empagliflozin [Jardiance] 25 mg PO DAILY 04/08/17 Oxybutynin Chloride [Ditropan Xl] 10 mg PO DAILY 04/08/17 Sucralfate [Carafate] 1 gm PO TID 04/08/17 Cholecalciferol (VIT D3) [Vitamin D3] 3,000 unit PO DAILY 01/13/18 Cyanocobalamin [Vitamin B12] 1 ml IM QMONTH 01/13/18 Fluoxetine HCl 40 mg PO DAILY 01/13/18 Fluticasone/Vilanterol [Breo Ellipta 200-25 Mcg INH] 1 inh PO DAILY 01/13/18 Olanzapine [Zyprexa] 7.5 mg PO BID 01/13/18 Albuterol Inhaler [Ventolin Hfa] 2 puff INHALATION BID PRN 01/23/18 Bismuth Subsalicylate [Bismuth] 262 mg PO Q6H PRN PRN 01/23/18 Guaifenesin/Dextromethorphan [Mucinex Dm ER 600-30 mg Tablet] 600 mg PO DAILY PRN 01/23/18 Loperamide [Imodium] 2 mg PO Q8H PRN PRN 01/23/18 Polyethylene Glycol 3350 [Miralax] 17 gm PO PRN PRN 01/23/18 traZODone [Desyrel] 100 mg PO QHS PRN 01/23/18 Acetaminophen [Tylenol Tablet] 650 mg PO Q6H PRN PRN tablet 01/27/18 Albuterol Aerosols [Ventolin Aerosols] 2.5 mg INHALATION Q2H PRN PRN vial.neb. 01/27/18 Cefdinir [Omnicef [equiv]] 300 mg PO Q12@799,1999 #5 cap 01/27/18 Cyclobenzaprine [Flexeril] 10 mg PO TID PRN PRN #0 tablet 01/27/18 Dextran 70/He-Cell [Tears Naturale, Artificial Tears] 1 drop EACH EYE Q1H PRN PRN bottle 01/27/18 Docusate Sodium [Colace] 100 mg PO BID capsule 01/27/18 Ferrous Sulfate 325 mg PO BIDCM tablet 01/27/18 Lidocaine [Lidoderm Patch] 1 patch TOPICAL DAILY patch 01/27/18 Lorazepam [Ativan] 1 mg PO TID PRN PRN #6 tab 01/27/18 Nicotine [Nicoderm Cq] 21 mg TRANSDERM. DAILY patch 01/27/18 Oxycodone [Oxyir] 5 mg PO Q6H PRN PRN #8 tab 01/27/18 Prednisone 10 mg PO DAILY #12 tablet 01/27/18 Following Prescrptions Were Given to Patient: Cefdinir [Omnicef [equiv]] 300 mg PO Q12@799,1999 #5 cap Lorazepam [Ativan] 1 mg PO TID PRN PRN #6 tab PRN Reason: ANXIETY Oxycodone [Oxyir] 5 mg PO Q6H PRN PRN #8 tab PRN Reason: Severe Pain (6-10/10) Prednisone 10 mg PO DAILY #12 tablet Primary Care Physician: Ruddy Brandt Chi, MD [Primary Care Provider] - Please follow up with your Primary Care Physician in: 2 weeks Please Follow Up With: Lauren Ruelas MD When: Call for soonest appointment [facility]position[facility] facility Minutes spent on discharge:: 35 Patient Condition:: Stable Medical Necessity - Tobacco Use Smoking Status: Current every day smoker Tobacco Use: Cigarettes Meaningful Use Info Meaningful Use Diagnoses (Choose all that apply): None applicable
--- NOTE | 2018-01-27 17:50 | DS.PCM_ITS ---
Discharge Date and Diagnosis - Problem List Patient Problems: Active and Suspected Problems (Last Reviewed 06/28/17 @ 12:57 by Coretta Pino) PNA (pneumonia) (Acute) Intractable back pain (Acute) COPD exacerbation (Acute) Iron deficiency (Acute) Date of Admission: 01/23/18 Date of Discharge: 01/27/18 - Primary Discharge Diagnosis Active and Suspected Problems (Last Reviewed 06/28/17 @ 12:57 by Coretta Pino) PNA (pneumonia) (Acute)-community-acquired, suspected pneumococcal Intractable back pain (Acute) secondary to chronic degenerative spinal issues COPD exacerbation (Acute) secondary to community-acquired pneumonia Iron deficiency anemia Debility secondary to intractable back pain Schizoaffective disorder Anxiety Debility - Secondary Discharge Diagnosis Chronic Problems (Last Reviewed 06/28/17 @ 12:57 by Coretta Pino) Anxiety (Chronic) COPD (chronic obstructive pulmonary disease) (Chronic) History of stroke (Chronic) Diabetes mellitus (Chronic) Hyperlipidemia (Chronic) Esophageal reflux (Chronic) History of tobacco use (Chronic) Schizophrenia (Chronic) Chronic pain (Chronic) Hospital Course and Treatment Imaging Results: RAD/Chest 1 View (Portable) IMPRESSION: No acute cardiopulmonary disease. CT/CTA Chest W/WO Contrast IMPRESSION: No demonstrated pulmonary embolism, aneurysm, leak or arterial dissection submitted images. Low lung volume with new bilateral predominantly right lower lobe airspace disease and moderate component of volume loss. Suspect underlying inflammatory/infectious etiology with borderline sized right hilar and subcarinal lymph node. There is borderline cardiac size. Esophageal wall prominence. This can be further assessed with upper GI or endoscopy, not visualized on previous CT chest exam. Nonacute stable fracture right ninth lateral rib. Mild splenomegaly, small hiatal hernia, accessory splenic tissue, prior cholecystectomy are stable findings. Doppler LE Interpretation Summary There is no evidence of right lower extremity deep vein thrombosis. Right greater saphenous vein appears patent and compressible segmentally. Operations: None Procedures: None Summary of Care Provided: Physical exam on day of discharge: General: Resting comfortably NAD Psych: A/Ox3 normal affect HEENT: PEARR[place] AT NC Neck: Supple NT CV: RRR no m/t/r/g/h Resp: CTA Abd: [id number] Soft NT no guarding or rigidity Ext: DP2+= no edema Skin: W/D normal turgor Lymph/Heme: No active bleeding or adenopathy Neuro: CN2-12 intact Hospital course: The patient is a 57 year old F who presented to the emergency room with severe bilateral hip thigh and leg pain. This been going on for about 4 days. She had just seen her journeyman painter Dr. Ruelas in the office who had refilled her pain pump however she had no significant relief. She was unable to walk her pain was so severe, she cannot stand. Prior to the start of her pain getting worse she had no issues getting around at home reportedly. She also was found to be hypoxic with a pulse ox of 85 on room air, chest x-ray was unremarkable however a follow-up CTA was done which did demonstrate right sided pneumonia. She had spinal imaging as an outpatient with Dr. Ruelas so no further imaging was done at this time. The patient also had leukocytosis. She was admitted to the hospital for cardiac monitoring and was treated for community-acquired pneumonia presumed streptococcal and intractable back thigh and leg pain, as well as COPD exacerbation secondary to the pneumonia.. She was treated with Rocephin and azithromycin for the pneumonia, Solu-Medrol transition to prednisone with aerosol therapy for the COPD, and as needed pain medications and physical therapy for her pain. Cultures did not demonstrate any specific organism. She was transitioned to oral Omnicef after completing 3 days of azithromycin and Rocephin. She initially required oxygenation however was successfully weaned off. Her pain was controlled and she was able to stand and ambulate with physical therapy assistance, she did require to assist and can only take a couple steps. She was agreeable to longterm placement she also complained of some leg swelling while she was here and she underwent a Doppler of the lower extremities which was negative. She was discharged to longterm in stable condition, she will need to follow-up with Dr. Ruelas as an outpatient for possible further intervention as soon as possible, she will also need to follow-up with her PCP in 1-2 weeks. This patient was seen by Aurelio Mcconnell PA-C under the supervision of Doctor Christensen. [] Discharge Diet: Low fat/ Low Cholesterol, 1800 Calorie Control Diet, 2000 mg Sodium Diet Discharge Activity: Return to Normal Activity Home Medications: Medications to take at Discharge Aspirin [Aspirin, Baby] 81 mg PO DAILY@0800 07/25/16 Atorvastatin Calcium [Lipitor] 80 mg PO QHS 07/25/16 Clopidogrel Bisulfate [Plavix] 75 mg PO DAILY 07/25/16 Dexlansoprazole [Dexilant] 60 mg PO DAILY 07/25/16 Dulaglutide [Trulicity] 1.5 mg SQ FR 07/25/16 Multivitamin with Minerals [Hair, Skin and Nails] 1 ea PO DAILY 07/25/16 Pregabalin [Lyrica] 100 mg PO TID 07/25/16 Insulin Degludec [Tresiba Flextouch U-100] 50 unit SQ DAILY 09/23/16 Cyclosporine [Restasis] 1 drop OP BID 04/08/17 Dapagliflozin/Metformin HCl [Xigduo Xr 5 mg-1,000 mg Tablet] 1 tablet PO BID Empagliflozin [Jardiance] 25 mg PO DAILY 04/08/17 Oxybutynin Chloride [Ditropan Xl] 10 mg PO DAILY 04/08/17 Sucralfate [Carafate] 1 gm PO TID 04/08/17 Cholecalciferol (VIT D3) [Vitamin D3] 3,000 unit PO DAILY 01/13/18 Cyanocobalamin [Vitamin B12] 1 ml IM QMONTH 01/13/18 Fluoxetine HCl 40 mg PO DAILY 01/13/18 Fluticasone/Vilanterol [Breo Ellipta 200-25 Mcg INH] 1 inh PO DAILY 01/13/18 Olanzapine [Zyprexa] 7.5 mg PO BID 01/13/18 Albuterol Inhaler [Ventolin Hfa] 2 puff INHALATION BID PRN 01/23/18 Bismuth Subsalicylate [Bismuth] 262 mg PO Q6H PRN PRN 01/23/18 Guaifenesin/Dextromethorphan [Mucinex Dm ER 600-30 mg Tablet] 600 mg PO DAILY PRN 01/23/18 Loperamide [Imodium] 2 mg PO Q8H PRN PRN 01/23/18 Polyethylene Glycol 3350 [Miralax] 17 gm PO PRN PRN 01/23/18 traZODone [Desyrel] 100 mg PO QHS PRN 01/23/18 Acetaminophen [Tylenol Tablet] 650 mg PO Q6H PRN PRN tablet 01/27/18 Albuterol Aerosols [Ventolin Aerosols] 2.5 mg INHALATION Q2H PRN PRN vial.neb. 01/27/18 Cefdinir [Omnicef [equiv]] 300 mg PO Q12@799,1999 #5 cap 01/27/18 Cyclobenzaprine [Flexeril] 10 mg PO TID PRN PRN #0 tablet 01/27/18 Dextran 70/He-Cell [Tears Naturale, Artificial Tears] 1 drop EACH EYE Q1H PRN PRN bottle 01/27/18 Docusate Sodium [Colace] 100 mg PO BID capsule 01/27/18 Ferrous Sulfate 325 mg PO BIDCM tablet 01/27/18 Lidocaine [Lidoderm Patch] 1 patch TOPICAL DAILY patch 01/27/18 Lorazepam [Ativan] 1 mg PO TID PRN PRN #6 tab 01/27/18 Nicotine [Nicoderm Cq] 21 mg TRANSDERM. DAILY patch 01/27/18 Oxycodone [Oxyir] 5 mg PO Q6H PRN PRN #8 tab 01/27/18 Prednisone 10 mg PO DAILY #12 tablet 01/27/18 Following Prescrptions Were Given to Patient: Cefdinir [Omnicef [equiv]] 300 mg PO Q12@799,1999 #5 cap Lorazepam [Ativan] 1 mg PO TID PRN PRN #6 tab PRN Reason: ANXIETY Oxycodone [Oxyir] 5 mg PO Q6H PRN PRN #8 tab PRN Reason: Severe Pain (6-10/10) Prednisone 10 mg PO DAILY #12 tablet Primary Care Physician: Ruddy Brandt Chi, MD [Primary Care Provider] - Please follow up with your Primary Care Physician in: 2 weeks Please Follow Up With: Lauren Ruelas MD When: Call for soonest appointment Disposition: [facility] facility Minutes spent on discharge:: 35 Patient Condition:: Stable Medical Necessity - Tobacco Use Smoking Status: Current every day smoker Tobacco Use: Cigarettes Meaningful Use Info Meaningful Use Diagnoses (Choose all that apply): None applicable
== END 2018-01-27 18:20 | disposition skilled nursing facility (03) | DRG 551 ==
LOC: ED 22:05 → PCU 01-23 01:15
PROVIDERS: Admitting Provider Hospitalist; Emergency Provider Emergency Medicine; Family Provider Family Medicine Geriatric Medicine; PCP Family Medicine Geriatric Medicine; Visit Provider Internal Medicine
DX: M54.5 Low back pain (principal); J13 Pneumonia due to Streptococcus pneumoniae; J44.1 Chronic obstructive pulmonary disease with (acute) exacerbation; J44.0 Chronic obstructive pulmonary disease with (acute) lower respiratory infection; E78.5 Hyperlipidemia, unspecified; F17.210 Nicotine dependence, cigarettes, uncomplicated; D50.9 Iron deficiency anemia, unspecified; E11.9 Type 2 diabetes mellitus without complications; F41.9 Anxiety disorder, unspecified; R53.81 Other malaise; F25.9 Schizoaffective disorder, unspecified; G89.29 Other chronic pain; K21.9 Gastro-esophageal reflux disease without esophagitis; Z86.73 Personal history of transient ischemic attack (TIA), and cerebral infarction without residual deficits; Z79.4 Long term (current) use of insulin; M79.606 Pain in leg, unspecified
CPT/HCPCS: 36415; 71045; 71275; 72100; 72170; 80048; 81001; 82728; 82962; 83540; 83550; 84484; 85025; 87077; 87086; 87088; 87186; 87449; 93005; 93971; 94640; 94667; 94668; 97110; 97116; 97162; 97165; 97530; 97535; 99284; 99285; 99406; Q9967; A4216

== ENCOUNTER → 2018-03-13 11:36 | Outpatient (CLI) | payer MEDICARE, SELFPAY ==
[2018-03-13 12:38] LABS: Absolute Lymphocyte Count 1.31 X10^3/ul (0.83-4.51); Absolute Neutrophil Count 6.3 X10^3/uL (2.0-7.7); Basophil# 0.01 X10^3/uL; Basophil% 0.1 % (0-1); Eosinophil# 0.04 X10^3/uL; Eosinophils% 0.5 % (0-5); Hematocrit 43.6 % (37-47); Hemoglobin 13.3 g/dl (12.0-15.0); Lymphocyte # 1.31 X10^3/ul (4.0); Lymphocyte % 15.7 % (19-41); Mean Corp Hgb Conc 30.5 g/gl (32-36); Mean Platelet Vol. 10.2 fl (6.2-12.0); Monocyte# 0.68 X10^3/uL; Monocyte% 8.1 % (0-10); Neutrophil % 75.2 % (47-70); Platelet Count 244 K/mm3 (150-450); RBC Distribution Width CV 23.7 % (11.6-14.6); RBC Distribution Width SD 69.2 fl (35.1-43.9); Red Blood Count 5.32 M/mm3 (4.2-5.4); White Blood Count 8.4 K/mm3 (4.4-11.0)
[2018-03-13 12:50] LABS: ALB/GLOB Ratio 0.9 RATIO (0.9-2.4); AST(SGOT) 17 U/L (15-37); Alanine Aminotransfer ALT/SGPT 36 U/L (13-56); Albumin, Serum 3.4 g/dL (3.2-5.0); Alkaline Phosphatase 113 U/L (45-117); Anion Gap 11 (5-15); BUN 10 mg/dL (7-18); BUN/Creat Ratio 17.1 RATIO (10-20); Calcium,Total 8.5 mg/dL (8.5-10.1); Chloride 107 mmol/L (98-107); Creatinine, Serum 0.59 mg/dL (0.55-1.02); EST Glomerular Filtration Rate 113 mL/min (>60); Est Glom Filt Rate - Afr Amer 137 mL/min (>60); Globulin 3.8 g/dL (2.2-4.2); Glucose 101 mg/dL (74-106); Potassium 4.2 mmol/L (3.5-5.1); Protein, Total 7.2 g/dL (6.4-8.2); Sodium Level 142 mmol/L (136-145)
[2018-03-13 12:51] LABS: Differential Indicated SCAN CRITERIA MET; POSITIVE COUNT NO; POSITIVE DIFFERENTIAL NO; POSITIVE MORPHOLOGY YES
[2018-03-13 12:53] LABS: Differential Comment SCANNED
== END ==
PROVIDERS: Family Provider Family Medicine Geriatric Medicine; PCP Family Medicine Geriatric Medicine; Visit Provider Family Medicine Geriatric Medicine
DX: E11.9 Type 2 diabetes mellitus without complications (principal); I10 Essential (primary) hypertension
CPT/HCPCS: 36415; 80053; 84443; 85025

== ENCOUNTER 2018-04-17 09:30 | Outpatient (RCR) | payer MEDICARE, SELFPAY ==
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
--- NOTE | 2018-03-06 15:19 | HP.OTEVAL ---
Patient's Visit Information ELSA MERIDA is a 57 year old F, referred to Occupational Therapy by Ronaldo Rock, with a diagnosis of recurrent falls, low back pain. Date of Evaluation: 03/06/18 Occupational Therapist: Pamela Arroyo - Subjective Subjective: Pt seen for initial occupational therapy evaluation after having recurrent falls at home with increased pain on her R side of body and decreased independence with self care tasks. Pt wants to increase independence with bathing tasks and using R arm better. Pt R hand dominent. Pt states suffered stroke 2016. Pt states started having frequent falls about 1 month ago, out in hallway of her appartment, in courtyard 2x with use of cane, falls in bathroom, pt states gets up on her own from a lot of the falls. Pt has spent the past 1 to 2 months at [facility]. Pt resides at [facility] [place], tub/shower, grab bars, ETB, HHS, RTS with handles. Pt has assist with baths 2x/wk but would like to take one on her own every day. Pt has been getting dressed on her own but has needed assist with getting her high top shoes on. - Pain R ankle 8 Pain Intensity Range: 5, 6, 7, 8 R shoulder 8 Pain Intensity Range: 5, 6, 7, 8 - Objective Objective/Observation: Pt demo decreased ROM R UE shoulder flexion and decreased bilateral arm strength with decreased independence with all self care tasks. - ROM Shoulder: R shoulder flexion 100', L shoulder flexion WFL ROM Comments: L UE WFL, R UE WFL other than limited shoulder flexion - Strength Emulsion Coater: R 25#, L 20# Lateral Pinch: R 0#, L 2# Tripod Pinch: R 0#, L 0# Strength Comments: Generalized MMT R 3/5, L 3+/5 - Edema Other: No edema noted - Sensation Sensation Comments: Neuropathy numbness/tingling bilateral hands and feet, not new. - DASH-Disabilities of Arm, Shoulder& Hand DASH Sum: 100 - Goals Goal:: Pt will progress w/ generalized BUE strength 4/5 to assist with bath transfers and functional living tasks WI level. Pt will progress w/ bilateral hand tripod and lateral pinch 4# to assist with opening containers for self feeding independently. Goal:: Pt will minimize pain of R shoulder with movement no greater than 2/10 by d/c from OT services. Goal:: Pt will increase coordination skills of bilateral hands to lace shoes and tie shoes independently by d/c from OT services. Goal:: Pt will be educated on energy conservation, safety awareness and adaptive techniques to assist with BADLs with good understanding and demo 100%x to decrease risk of falls. Goal:: Pt will be able to complete all LB dressing tasks WI level using AE as needed with good safety awareness. Goal:: Pt will be educated on HEP for BUE with good understanding and demo 100%x. - Rehabilitation General Assessment: Pt has had recurrent falls at home and decreased safety in her apartment. Pt demonstrates decreased R shoulder ROM, decreased BUE strength and decreased pets salesperson strength. Pt demonstrates decreased education on DME/AE to assist with ADL's and decreased independence with LB dressing tasks. Pt would benefit from direct skilled occupational therapy services to increase BUE strength, bilateral pets salesperson strength and independence with self care tasks using AE as needed to increase safety and independence to return back to PLOF. Rehabilitation Potential: Fair - Anticipated Interventions Anticipated Interventions: A/AAROM/PROM, Strengthening, Modalities, Joint Protection/Energy Conservation, Fine Motor Coord/Erlin, ADL Training, Education re assistive Equipment, Home Program - Visit Plan Frequency: 2x /Week Duration: 4-6 Weeks General Plan: Pt would benefit from direct skilled occupational therapy services to increase BUE strength, educate on HEP BUE, increase bilateral pinch strength and independence with self care tasks using AE as needed to increase safety and independence to return back to PLOF, as well as increase coordination skills to complete shoe tying independently using AE as needed. TEXT: Thank you for the opportunity to evaluate your patient. For Medicare and Medicare HMO plans, please review the plan of care and approve it. It will need to be FAXED BACK to us at [phone] for Medicare purposes. Please let me know if there are questions or concerns regarding this plan of care. Physician Signature: Date:
--- NOTE | 2018-04-17 09:56 | HP.OTDCSUM_ITS ---
HP - OT D/C Summary It has been my pleasure to treat ELSA MERIDA under orders from Ronaldo Rock, for the diagnosis of recurrent falls, low back pain for a total of 9 visit(s). Please see the following information for a summary of their discharge status. - Objective Objective/Function: D/C OT services this date per pt's request - Goals Patient Goals: Decrease Pain, Improve Fine Motor Skills, Use Hand/Wrist/Arm Normally Again, Increase ROM, Be More Independent in ADLS, Resume Former Household Responsibilities (Cooking,Cleaning,Yard, etc.), Resume Hobbies Other: R 30#, L 40#. Lateral R 0#, L 2#. Tripod R 0#, L 2# Goal:: Pt will progress w/ generalized BUE strength 4/5 to assist with bath transfers and functional living tasks PR level. Pt will progress w/ bilateral hand tripod and lateral pinch 4# to assist with opening containers for self feeding independently. Goal:: Pt will minimize pain of R shoulder with movement no greater than 2/10 by d/c from OT services. Goal:: Pt will increase coordination skills of bilateral hands to lace shoes and tie shoes independently by d/c from OT services. Goal:: Pt will be educated on energy conservation, safety awareness and adaptive techniques to assist with BADLs with good understanding and demo 100%x to decrease risk of falls. Goal:: Pt will be able to complete all LB dressing tasks PR level using AE as needed with good safety awareness. Goal:: Pt will be educated on HEP for BUE with good understanding and demo 100%x. - Plan Plan: cont w/ prior POC - D/C Information Discharge Comments: Pt has progressed with R powersaw supervisor strength from 25# to 30#. Pt has progressed wtih L powersaw supervisor strength from 20# to 40#. Pt continues to demo lateral pinch and tripod pinch 0# R hand. Pt has progressed to using red medium soft theraputty for hand strengthening exercises and has been educated on HEP for wrists and powersaw supervisor strength. Pt states taking her own baths and completing all lower body dressing independently. Pt able to tie her own shoes independently now. Pt able to open a variety of different containers independently. Pt did not meet all goals however pt wanting to d/c from OT services secondary to family member on hospice and wants to spend time with them at this time. D/C OT services per pt's request. If there are questions or concerns regarding this patient's occupational therapy, please fell free to call me at [phone]. Thank you for the re ferral of this patient. Sincerely, Pamela Arroyo
--- NOTE | 2018-04-17 10:22 | HP.PTDCSUM_ITS ---
HP - PT D/C Summary It has been my pleasure to treat ELSA MERIDA under orders from Ronaldo Rock, for the diagnosis of FREQUENT FALLS. LOW BACK PAIN. for a total of 9 visit(s). Discharge Date: Please see the following information for a summary of their discharge status. - Subjective Subjective: PATIENT REPORTS SHE WANTS US TO DISCHARGE HER TODAY. SHE STATES SHE NEEDS TO BE THERE FOR HER MOM BECAUSE HER DAD IS DYING. PATIENT DENIES ANY SERIOUS INJURIES FROM THE FALLS. FOLLOW UP SCHEDULED WITH DR. ANDREW NEXT WEEK. PATIENT REPORTS HER BALANCE AND STRENGTH IS A LOT BETTER SINCE HAVING PHYSICAL THERAPY. HER PAIN HAS NOT CHANGED MUCH BUT SHE REPORTS SHE IS USE TO IT. SHE REPORTS SHE FALLS BECAUSE SHE GETS TO TALKING AND DOESN'T PAY ENOUGH ATTENTION TO HER FEET. - Pain LOW BACK Pain Intensity (Out of 10): 8 BRETT LE Pain Intensity (Out of 10): 7 - Overall Improvement % Improvement: 80 - Objective Objective/Function: PATIENT HAS MADE SOME PROGRESS TOWARD ALL PT GOALS EXCEPT SUBJECTIVE REPORTS OF PAIN HOWEVER SHE HAS LESS C/O PAIN WITH LUMBAR ROM TESTING TODAY. SHE IS INDEP WITH A HEP. THIS PATIENT AMBULATES INDEP'LY INTO PT WITH A ROLLATOR FROM OCCUPATIONAL THERAPY WITH NO LOSS OF BALANCE. SHE TAKES SHORT BRETT STEPS AND IS MINIMALLY DEPENDENT ON THE ROLLATOR. HER STANDING POSTURE IS POOR WITH PPT, INCREASED TRUNK FLEX, TIGHT HIP FLEXORS AND SLIGHTLY BENT BRETT KNEES RIGHT > LEFT. WHEN SHE WALKS SHE LIMPS ON THE RIGHT LE AND SHE HAS SPASTICITY IN THE RIGHT LE. SHE IS ABLE TO WALK AROUND THE TREATMENT ROOM TODAY WITHOUT A [place] ASSISTIVE DEVICES WITH LOB ONLY WHEN TURNING AROUND AND SHE IS ABLE TO REGAIN HER BALANCE INDEP'LY. CORE STRENGTH CONTINUES TO BE POOR. SHE HAS TIGHT HIP FLEXORS, HAMSTRINGS AND GASTROC SOLEUS COMPLEX'S. LLE STRENGTH: HIP 4-/5, KNEE EXT 4/5, KNEE FLEX 4/5 AND ANKLE 5/5. RIGHT LE: HIP 3+/5, KNEE EXT 3-/5, KNEE FLEX 3-/5, ANKLE DORSIFLEX 2/5. PATIENT IS UNABLE TO SLS ON EITHER LE WITHOUT UE ASSIST. SHE IS ABLE TO INDEP'LY TRANSFER FROM SIT TO STAND BEARING MOST OF HER WEIGHT ON THE LLE WITHOUT UE ASSIST NOW. LUMBAR MVMT LOSS; FLEX - MIN, EXT - SELWYN, LEFT SB - MOD, RIGHT SB - SELWYN. PATIENT DENIES INCREASED LOW BACK PAIN WITH LUMBAR ROM TESTING ALL PLANES. PATIENT IS UNABLE TO FULLING CORRECT POSTURE AND ATTEMPS DO NOT INCREASE LBP TODAY BUT SHE STARTS TO LOSE HER BALANCE. PALPATION: PATIENT CONTINUES TO BE TENDER WITH LIGHT PALPATION OF HER THORACIC AND LUMBAR REGIONS INTO THE SACRUM AND BOTH BUTTOCK REGIONS. BACK OSWESTRY SCORE HAS IMPROVED FROM 29 TO 13 (PATIENT NEEDED ASSIST COMPLETING). - Goals Goal 1:: DECREASE C/O BACK AND LEG PAIN Goal Progress: Not Progressing Goal 2:: INDEP AND SAFE GAIT ON ALL SURFACES WITH LEAST ASSISTIVE DEVICE. Goal Progress: Progressing Goal 3:: IMPROVE PERSONAL CARE, LIFTING, WALKING, SITTING, STANDING, SOCIAL LIFE, TRAVEL AND HOMEMAKING FUNCTION. Goal Progress: Progressing Goal 4:: INSTRUCT IN PROPHYLAXIS/HEP Goal Progress: Progressing - Plan Plan: D/C AT PATIENTS REQUEST. - D/C Information If there are questions or concerns regarding this patient's physical therapy, please feel free to call me at [phone]. Thank you for the referral of this patient. Sincerely, Ratna Armando
== END 2018-04-17 19:00 | disposition home or self-care (01) ==
LOC: PT 09:30
PROVIDERS: Family Provider Family Medicine Geriatric Medicine; PCP Family Medicine Geriatric Medicine; Visit Provider Family Medicine
DX: M54.5 Low back pain (principal); R29.6 Repeated falls
CPT/HCPCS: 97110; 97162; 97164; 97166; 97530

== ENCOUNTER → 2018-05-01 15:57 | Outpatient (CLI) | payer MEDICARE, SELFPAY | PROVIDERS: Family Provider Family Medicine Geriatric Medicine; PCP Family Medicine Geriatric Medicine; Visit Provider Family Medicine Geriatric Medicine | DX: N39.0 Urinary tract infection, site not specified (principal) | CPT/HCPCS: 87077; 87086; 87088; 87186 ==

== ENCOUNTER → 2018-05-28 10:42 | Outpatient (CLI) | payer MEDICARE, SELFPAY ==
--- NOTE | 2018-05-28 10:51 | US_ITS ---
STUDY: RENAL ULTRASOUND - COMPLETE REASON FOR EXAM: Female, 57 years old. History of kidney stones. Chronic UTIs. TECHNIQUE: Ultrasound evaluation of the kidneys was performed with real-time and static kramer-scale imaging. COMPARISON: CT scan 01/13/2018. FINDINGS: RIGHT KIDNEY: Normal location of the right kidney, which is normal in size. The right kidney measures 11.4 x 4.9 x 4.8 cm. There is focal scarring of the renal cortex. The renal cortex measures 0.9 cm. There is no right renal mass or cyst. There is a 3 mm nonobstructing upper pole stone. There is no right hydronephrosis. DISTAL RIGHT URETER: There is non-visualization of the distal right ureter. There is no demonstrated right ureterovesical junction calculus. There is a visualized right ureteral jet. LEFT KIDNEY: Normal location of the left kidney, which is normal in size. The left kidney measures 10.7 x 5.1 x 5.0 cm. There is focal scarring of the renal cortex. The renal cortex measures 1.0 cm. There is no left renal mass or cyst. Several nonobstructing renal stones are seen measuring as much as 4 mm. There is no left hydronephrosis. DISTAL LEFT URETER: There is non-visualization of the distal left ureter. There is no demonstrated left ureterovesical junction calculus. There is a visualized left ureteral jet. BLADDER: The distended urinary bladder has a volume of 92 ml. There is a normal wall thickness of the distended urinary bladder. There is no demonstrated mass within the urinary bladder. There are no demonstrated bladder calculi. US/Kidney and Bladder IMPRESSION: Bilateral cortical scarring of the kidneys consistent with a history of previous UTIs. Bilateral chronic nonobstructing small stones. No current hydronephrosis. Electronically Signed: Xu Garza MD at 11:49 EST , Service support ,
== END ==
PROVIDERS: Family Provider Family Medicine Geriatric Medicine; PCP Family Medicine Geriatric Medicine; Referring Provider Internal Medicine Infectious Disease; Visit Provider Internal Medicine Infectious Disease
DX: N21.0 Calculus in bladder (principal); N20.0 Calculus of kidney
CPT/HCPCS: 76770

== ENCOUNTER → 2018-06-17 08:18 | Outpatient (CLI) | payer MEDICARE, SELFPAY ==
--- NOTE | 2018-06-17 08:23 | CT_ITS ---
STUDY: CT MAXILLOFACIAL SINUSES REASON FOR EXAM: Female, 57 years old. Chronic sinusitis. RADIATION DOSAGE (If Supplied By Facility): CTDIvol = ( 33.45 ) mGy, DLP = ( 788.91 ) mGycm TECHNIQUE: The patient was scanned in a multi detector CT scanner. High resolution axial imaging was performed without the administration of intravenous contrast material. Sagittal and coronal images were reconstructed. Individualized dose optimization techniques were used for this CT. COMPARISON: Comparison is made with prior study dated January 10, 2018. FINDINGS: FRONTAL SINUSES: Normal aeration, without mucosal inflammatory disease. ETHMOIDAL SINUSES: Mild degree of mucosal thickening of the ethmoid sinuses. MAXILLARY SINUSES: Normal aeration, without mucosal inflammatory disease. SPHENOIDAL SINUSES: Normal aeration, without mucosal inflammatory disease. There is patency of the bilateral maxillary infundibuli with normal uncinate processes, ethmoid bullae, and hiatus semilunaris. Normal bilateral middle turbinates. There is hypertrophy of the left inferior nasal turbinate. Normal midline nasal septum. There is patency of the bilateral nasal airways. The visualized osseous structures are normal. The visualized bilateral orbital contents are normal. CT/Sinus/Facial Bone IMPRESSION: Minimal mucosal thickening of the ethmoid sinuses bilaterally. Prominence of the left inferior turbinate. Electronically Signed: Armando Qureshi MD at 14:25 EST Tel [phone], Service support ,
== END ==
PROVIDERS: Family Provider Family Medicine Geriatric Medicine; PCP Family Medicine Geriatric Medicine; Referring Provider Otolaryngology; Visit Provider Otolaryngology
DX: J32.0 Chronic maxillary sinusitis (principal)
CPT/HCPCS: 70486

== ENCOUNTER → 2018-06-19 09:39 | Outpatient (CLI) | payer MEDICARE, SELFPAY ==
--- NOTE | 2018-06-19 09:42 | RAD_ITS ---
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 TECHNIQUE: Two AP supine views of the abdomen and pelvis. COMPARISON: None. FINDINGS: Normal visualized lung bases. There is an unremarkable bowel gas pattern. Prior cholecystectomy. Normal soft tissue structures. Normal visualized osseous structures. RAD/Abdomen Single View IMPRESSION: Residual fecal material in the colon. The barium enema is rescheduled. Electronically Signed: Armando Qureshi MD at 10:39 EST Tel [phone], Service support ,
== END ==
PROVIDERS: Family Provider Family Medicine Geriatric Medicine; PCP Family Medicine Geriatric Medicine; Referring Provider Family Medicine Geriatric Medicine; Visit Provider Family Medicine Geriatric Medicine
DX: N32.1 Vesicointestinal fistula (principal)
CPT/HCPCS: 74018

== ENCOUNTER 2018-06-19 14:32 | Emergency (ER) | payer MEDICARE, SELFPAY ==
[2018-06-19 14:33] VITALS: BP 134/74; PULSE 93; RESP 16; TEMP 37; O2SAT 98; BMI 32.4
--- NOTE | 2018-06-19 15:09 | RAD_ITS ---
STUDY: X-RAY CHEST REASON FOR EXAM: Female, 57 years old. Dizziness. Fall. TECHNIQUE: Single AP portable view of the chest. COMPARISON: Comparison is made with prior study dated January 22, 2018. FINDINGS: EKG electrodes are seen. Stable mild increased markings at the left lung base suggestive of a left basilar atelectasis and/or scarring. There is no demonstrated pleural abnormality. Normal size heart. Normal mediastinum and danita. Normal visualized pulmonary arteries. There is atherosclerotic calcification of the aortic arch with tortuosity. There are diffuse degenerative changes of the visualized thoracic spine. Normal visualized ribs, clavicles, and shoulders. There is no demonstrated abnormality of the visualized soft tissue structures of the upper abdomen. RAD/Chest 1 View (Portable) IMPRESSION: No acute abnormality is seen. Electronically Signed: Armando Qureshi MD at 15:45 EST Tel [phone], Service support ,
[2018-06-19 15:25] LABS: Mucous, Urine 0 SEEN /hpf (<or=2+); Red Blood Cells-Urine 0 SEEN /hpf (0-5); Squamous Epithelial Cells - UA 0 SEEN /hpf (5-10); White Blood Cells 0 SEEN /hpf (0-5)
[2018-06-19 15:27] LABS: Color, Urine Straw (Yellow); Glucose, Dipstick 1000 mg/dl (Normal); Ketone-Dipstick Negative (Negative); Leukocyte Esterase-Dipstick 25 /ul (Negative); Nitrite-Dipstick Negative (Negative); Occult Blood-Urine Negative /ul (Negative); Protein-Dipstick Negative (Negative); Urine Bilirubin Dipstick Negative (Negative); Urine Clarity Sl. Cloudy (Clear); Urine Urobilinogen Normal (Normal)
--- NOTE | 2018-06-19 15:29 | ED.VISSUMM ---
- ER Visit Summary Date of Service: 06/19/18 Chief Complaint: [Falls] History of Present Illness: The patient is a 57 F [presents to the emergency department with complaint of falls x2 today. Patient states that she gets lightheaded and tripped over her walker. Patient denies any significant injury she just has a mild bruise to her left elbow. She denies any head or neck pain. She denies any chest pain or shortness of breath. Patient presented to the ER via EMS and is from an assisted living facility. Patient states that she has been on a liquid diet for the last 3 days as she is scheduled to have a colonoscopy performed tomorrow. Patient is somewhat of a poor historian and cannot really tell me why she is scheduled to have a colonoscopy tomorrow or with him. She has been treated recently for strep throat but denies any fever. Patient has had some dysuria and frequency for about a month. Patient denies any blood in her stool or black tarry stool.] Physical Examination: [HEENT-PERRLA, EOMI. Cranial nerves II through XII grossly intact. TMs clear. Mucous membranes moist. No adenopathy. No external evidence of trauma to the patient's head. Patient has no C-spine tenderness on palpation. Patient has normal active range of motion is painless. Cardiovascular-regular rate and rhythm without murmur or ectopy Lungs-clear to auscultation, chest wall stable without crepitus or subcu emphysema Abdomen-normoactive bowel sounds, soft, nontender, no rebound or rigidity, no peritoneal signs. Extremities-intact ?4, normal range of motion, normal pulses. Patient has some faint ecchymosis and bruising about the left elbow without any obvious deformity. No real bony tenderness on exam. Patient has normal range of motion. She is neurovascular intact distally. Test Results: [EKG obtained on arrival showed a sinus rhythm with a ventricular rate of 85 bpm with some LVH noted. CBC with differential obtained showed a white count 9.9, hemoglobin 14, hematocrit 46, platelets 212. Chemistries unremarkable. Urinalysis showed +4 bacteria but 0 WBCs and 0 RBCs and nitrite negative. Troponin was less than 0.015. Chest x-ray showed nothing acute. Orthostatic vital signs were negative.] Emergency Department Course and Treatment: [Patient was given normal saline] Treatment Plan: Admit [] Disposition: [Admit] Impression: [Generalized weakness Frequent falls] This note was generated with [employer] dictation software. It may contain incorrect words, spelling, and punctuation that were not noted in review of the chart prior to signing ED Disposition - Plan for ED Patient: Chief Complaint: Fall Referrals: Ruddy Brandt Chi, MD [Primary Care Provider] -
[2018-06-19 15:38] LABS: Bacteria 4+ /hpf (None Seen)
[2018-06-19 16:07] LABS: Absolute Lymphocyte Count 1.94 X10^3/ul (0.83-4.51); Absolute Neutrophil Count 7.2 X10^3/uL (2.0-7.7); Basophil# 0.02 X10^3/uL; Basophil% 0.2 % (0-1); Eosinophil# 0.04 X10^3/uL; Eosinophils% 0.4 % (0-5); Hematocrit 46.5 % (37-47); Hemoglobin 14.2 g/dl (12.0-15.0); Lymphocyte # 1.94 X10^3/ul (4.0); Lymphocyte % 19.6 % (19-41); Mean Corp Hgb Conc 30.5 g/gl (32-36); Mean Corpuscular Hgb 26.5 pg (27.0-32.0); Mean Corpuscular Volume 86.8 fL (81-99); Mean Platelet Vol. 10.1 fl (6.2-12.0); Monocyte% 7.1 % (0-10); Neutrophil # 7.19 X10^3/uL (2.7-7.7); Neutrophil % 72.4 % (47-70); POSITIVE COUNT NO; POSITIVE DIFFERENTIAL NO; POSITIVE MORPHOLOGY NO; Platelet Count 212 K/mm3 (150-450); RBC Distribution Width CV 15.3 % (11.6-14.6); RBC Distribution Width SD 48.4 fl (35.1-43.9); Red Blood Count 5.36 M/mm3 (4.2-5.4); White Blood Count 9.9 K/mm3 (4.4-11.0)
[2018-06-19 16:21] LABS: Anion Gap 4 (5-15); BUN 8 mg/dL (7-18); BUN/Creat Ratio 15.7 RATIO (10-20); Calcium,Total 8.6 mg/dL (8.5-10.1); Chloride 105 mmol/L (98-107); Creatinine, Serum 0.51 mg/dL (0.55-1.02); EST Glomerular Filtration Rate 133 mL/min (>60); Est Glom Filt Rate - Afr Amer 160 mL/min (>60); Estimated Creatinine Clearance 101.89 ml/min; Glucose 85 mg/dL (74-106); Potassium 3.7 mmol/L (3.5-5.1); Sodium Level 141 mmol/L (136-145)
[2018-06-19 16:22] VITALS: BP 148/88; BP 150/86; BP 160/84; PULSE 87; PULSE 89; PULSE 91
[2018-06-19] MEDS: 0.9% Normal Saline 1,000 ML 1000 ML IV (16:23)
[2018-06-19 16:28] LABS: Lactic Acid 1.7 mmol/L (0.4-2.0)
[2018-06-19 16:45] VITALS: BP 170/76; PULSE 86; RESP 16; O2SAT 97
[2018-06-19 17:07] VITALS: BP 178/96; PULSE 83; RESP 18; O2SAT 96
--- NOTE | 2018-06-19 17:36 | PCM.HP.STD ---
<Sandra Zapata - Last Filed: 06/19/18 17:56> Problem List (1) Anxiety Status: Chronic (2) Iron deficiency Status: Chronic (3) COPD (chronic obstructive pulmonary disease) Status: Chronic (4) History of stroke Status: Chronic (5) Diabetes mellitus Status: Chronic (6) Hyperlipidemia Status: Chronic (7) Esophageal reflux Status: Chronic (8) History of tobacco use Status: Chronic (9) Schizophrenia Status: Chronic (10) Chronic pain Status: Chronic History of Present Illness Date of Admission: 06/19/18 Chief Complaint: Falls, urinary symptoms. The patient is a 57 year old F who presents to the emergency room due to falls at assisted living facility. Patient states she gets lightheaded and tripped over her walker. She denies any injuries related to her falls. Patient reports she is to have a colonoscopy with Dr. Banda due to recurrent UTIs with concern for fistula. She complains of dysuria, suprapubic discomfort and bilateral flank pain. She denies fever, chills. Denies chest pain, shortness of breath. Denies other associated symptoms. Patient has a history of frequent falls with prior admission due to chronic low back pain with frequent falls and physical debility, functional decline. Her past medical history includes chronic back pain, COPD, type 2 diabetes mellitus, history of CVA, hyperlipidemia, GERD, schizophrenia, anxiety, iron deficiency anemia, tobacco dependence. Past Medical History Past Medical History (Chronic Problems): Chronic Problems (Last Reviewed 06/28/17 @ 12:57 by Coretta Pino) Anxiety (Chronic) Iron deficiency (Chronic) COPD (chronic obstructive pulmonary disease) (Chronic) History of stroke (Chronic) Diabetes mellitus (Chronic) Hyperlipidemia (Chronic) Esophageal reflux (Chronic) History of tobacco use (Chronic) Schizophrenia (Chronic) Chronic pain (Chronic) Medical History: Medical History (Last Reviewed 06/28/17 @ 12:57 by Coretta Pino) Cerebral vascular disease I67.9 Hypertension I10 Insomnia G47.00 Mild asthma J45.998 Neuralgia and neuritis M79.2 Spondylosis M47.9 Allergies Iodinated Contrast- Oral and IV Dye [Iodinated Contrast Media - IV Dye] Allergy (Verified 06/19/18 14:36) Hives amoxicillin trihydrate [From Augmentin] Adverse Reaction (Verified 06/19/18 14:36) Itching hydrocodone [From Vicodin] Adverse Reaction (Verified 06/19/18 14:36) Unknown potassium clavulanate [From Augmentin] Adverse Reaction (Verified 06/19/18 14:36) Itching prednisone Adverse Reaction (Verified 06/19/18 14:36) Unknown shellfish derived Adverse Reaction (Verified 06/19/18 14:36) Itching Home Medications: Ambulatory Orders Medication Instructions Recorded Aspirin [Aspirin, Baby] 81 mg PO DAILY@0800 07/25/16 Atorvastatin Calcium [Lipitor] 80 mg PO QHS 07/25/16 Clopidogrel Bisulfate [Plavix] 75 mg PO DAILY 07/25/16 Dulaglutide [Trulicity] 1.5 mg SQ FR 07/25/16 Insulin Degludec [Tresiba 65 unit SQ DAILY 09/23/16 Flextouch U-100] Sucralfate [Carafate] 1 gm PO TID 04/08/17 Cholecalciferol (VIT D3) [Vitamin 3,000 unit PO DAILY 01/13/18 D3] Cyanocobalamin [Vitamin B12] 1 ml IM QMONTH 01/13/18 Fluticasone/Vilanterol [Breo 1 inh PO DAILY 01/13/18 Ellipta 200-25 Mcg INH] traZODone [Desyrel] 100 mg PO QHS PRN 01/23/18 Cyclobenzaprine [Flexeril] 10 mg PO TID PRN PRN #0 tablet 01/27/18 Ferrous Sulfate 325 mg PO BIDCM tablet 01/27/18 Lorazepam [Ativan] 1 mg PO TID PRN PRN #6 tab 01/27/18 Docusate Sodium [Colace] 100 mg PO BID 06/19/18 Empagliflozin [Jardiance] 25 mg PO DAILY 06/19/18 Fluoxetine Hcl 40 mg PO DAILY 06/19/18 Guaifenesin [Mucinex] 600 mg PO DAILY 06/19/18 Levofloxacin [Levaquin] 500 mg PO DAILY 06/19/18 Metformin HCl [Glucophage] 1,000 mg PO BID 06/19/18 Multivitamins,Ther W-Minerals 1 tablet PO DAILY 06/19/18 [Multivitamin With Minerals] Olanzapine [Zyprexa] 10 mg PO QHS 06/19/18 Oxybutynin Chloride [Ditropan Xl] 10 mg PO DAILY 06/19/18 Pilocarpine HCl [Salagen] 5 mg PO TID 06/19/18 Pregabalin 100 mg PO TID 06/19/18 Restasis 1 drop EACH EYE BID 06/19/18 Surgical History: Surgical History (Last Reviewed 06/28/17 @ 12:57 by Coretta Pino) S/P right rotator cuff repair Z98.890 11/27/16 Surgical History: appendectomy, cholecystectomy, hysterectomy, - - Right shoulder surgery Psychiatric History: Anxiety, Schizophrenia SENIOR ADVOCATE History: No pertinent SENIOR ADVOCATE history Lives: - - Assisted living facility Smoking Status: Current every day smoker Alcohol: None Drugs: None - *Family History Maternal History Items: - - Patient adopted, denies known maternal medical history. Paternal History Items: - - Patient adopted, denies known paternal medical history. Review of Systems Constitutional: Denies: Chills, Fever, Weight Change HEENT: Denies: Head Aches, Sinus Congestion, Sinus Drainage Cardiovascular: Reports: Light Headedness. Denies: Chest Pain, Edema, Palpitations, Syncope Respiratory: Denies: Cough, Shortness of breath at rest, Sputum production Gastrointestinal: Reports: Nausea, - - Suprapubic tenderness. Denies: Constipation, Diarrhea, Vomiting Genitourinary: Reports: Dysuria. Denies: Hematuria, Incontinence, Retention, Urgency Musculoskeletal: Denies: Joint Pain, Joint Tenderness Skin: Denies: Rash, Wounds Neurological: Reports: Balance problems. Denies: Focal weakness, Numbness, Tingling Psychiatric: Reports: Anxiety Hematologic/ Lymphatic: Denies: Easy Bruising, Easy Bleeding VTE Information - Inpt Only VTE Present on Admission: No VTE Mechan Device Prophylaxis: SCD's VTE Pharm Prophylaxis ordered?: No - Physical Exam General: Alert, Oriented x3, Cooperative HEENT: Atraumatic, PERRLA, EOMI, Normocephalic Neck: Supple, No JVD, Negative Carotid Bruits Lungs: Clear to auscultation, Normal air movement Cardiovascular: Regular rate, Regular Rhythm, Normal S1, Normal S2, No murmurs Abdomen: Bowel Sounds Present, Soft, Non Tender, Non-Distended Extremities: No clubbing, No cyanosis, No edema, Capillary Refill Less than 3 Seconds Skin: No rashes, No breakdown Musculoskeletal: No Tenderness to Palpation of Joints or Extremities Neurological: Cranial nerves II-XII grossly intact, Neuro grossly intact Psych/Mental Status: Normal Affect, Appropriate Vital Signs Temp Pulse Resp BP Pulse Ox 98.6 F 83 18 178/96 H 96 06/19/18 14:33 06/19/18 17:07 06/19/18 17:07 06/19/18 17:07 06/19/18 17:07 Oxygen Delivery Method Room Air Weight: 183 lb Body Mass Index (BMI) 32.4 Finger Stick Blood Glucose 123 Laboratory Tests Past 24 Hrs 06/19/18 06/19/18 06/19/18 15:20 15:50 15:50 WBC 9.9 RBC 5.36 Hgb 14.2 Hct 46.5 MCV 86.8 MCH 26.5 L MCHC 30.5 L RDW 15.3 H RDW Differential 48.4 H Plt Count 212 MPV 10.1 Immature Gran % (Auto) 0.300 Neut % (Auto) 72.4 H Lymph % (Auto) 19.6 [place] % (Auto) 7.1 Eos % (Auto) 0.4 Baso % (Auto) 0.2 Absolute Neuts (auto) 7.2 Absolute Lymphs (auto) 1.94 Total Counted Not Reportable Sodium 141 Potassium 3.7 Chloride 105 Carbon Dioxide 32.0 Anion Gap 4 L BUN 8 Creatinine 0.51 L Estim Creat Clear Calc 101.89 Est GFR (MDRD) Af Amer 160 Est GFR (MDRD) Non-Af 133 BUN/Creatinine Ratio 15.7 Glucose 85 Lactic Acid Calcium 8.6 Troponin I < 0.015 Urine Color Straw Urine Clarity Sl. Cloudy Urine pH 7.0 Ur Specific [place] 1.010 Urine Protein Negative Urine Glucose (UA) 1000 H Urine Ketones Negative Urine Occult Blood Negative Urine Nitrite Negative Urine Bilirubin Negative Urine Urobilinogen Normal Ur Leukocyte Esterase 25 H Urine RBC 0 SEEN Urine WBC 0 SEEN Ur Squamous Epith Cells 0 SEEN Urine Bacteria 4+ Urine Mucus 0 SEEN 06/19/18 15:50 WBC RBC Hgb Hct MCV MCH MCHC RDW RDW Differential Plt Count MPV Immature Gran % (Auto) Neut % (Auto) Lymph % (Auto) [place] % (Auto) Eos % (Auto) Baso % (Auto) Absolute Neuts (auto) Absolute Lymphs (auto) Total Counted Sodium Potassium Chloride Carbon Dioxide Anion Gap BUN Creatinine Estim Creat Clear Calc Est GFR (MDRD) Af Amer Est GFR (MDRD) Non-Af BUN/Creatinine Ratio Glucose Lactic Acid 1.7 Calcium Troponin I Urine Color Urine Clarity Urine pH Ur Specific [place] Urine Protein Urine Glucose (UA) Urine Ketones Urine Occult Blood Urine Nitrite Urine Bilirubin Urine Urobilinogen Ur Leukocyte Esterase Urine RBC Urine WBC Ur Squamous Epith Cells Urine Bacteria Urine Mucus Assessment/Plan 1. Debility, frequent falls-chest x-ray unremarkable. Currently resides in assisted living facility. Case management consult for further discharge planning needs. 2. Recurrent cystitis-scheduled for colonoscopy with Dr. Banda tomorrow, consult. Concern for colovesical fistula. Continue Levaquin regimen with stop date 07/03/2018. Urine culture pending. 3. Type 2 diabetes mellitus- hold home oral regimen. Accu-Chek before meals at bedtime with sliding scale insulin. Continue home long-acting regimen. 4. Chronic back pain-PT/OT. Continue home gabapentin, Flexeril regimen. 5. History of CVA-continue aspirin, statin, Plavix. 6. Chronic COPD-no acute exacerbation. Albuterol aerosol as needed. 7. Hyperlipidemia-continue statin. 8. GERD- continue carafate regimen. 9. Schizophrenia/Anxiety-continue home regimen. 10. Iron deficiency anemia-continue iron supplementation. 11. Tobacco dependence-encourage smoking cessation. Nicotine replacement patch if desired. DVT prophylaxis-Lovenox sc This patient was seen by AKLEIGH Dan under the supervision of Dr. Carter. <Joan Carter - Last Filed: 06/19/18 18:47> History of Present Illness The patient is a 57 year old F [] Past Medical History Medical History: Medical History (Last Reviewed 06/28/17 @ 12:57 by Coretta Pino) Cerebral vascular disease I67.9 Hypertension I10 Insomnia G47.00 Mild asthma J45.998 Neuralgia and neuritis M79.2 Spondylosis M47.9 Allergies Iodinated Contrast- Oral and IV Dye [Iodinated Contrast Media - IV Dye] Allergy (Verified 06/19/18 14:36) Hives amoxicillin trihydrate [From Augmentin] Adverse Reaction (Verified 06/19/18 14:36) Itching hydrocodone [From Vicodin] Adverse Reaction (Verified 12/06/18 14:36) Unknown potassium clavulanate [From Augmentin] Adverse Reaction (Verified 06/19/18 14:36) Itching prednisone Adverse Reaction (Verified 06/19/18 14:36) Unknown shellfish derived Adverse Reaction (Verified 06/19/18 14:36) Itching Surgical History: Surgical History (Last Reviewed 06/28/17 @ 12:57 by Coretta Pino) S/P right rotator cuff repair Z98.890 11/27/16 - Physical Exam Vital Signs Temp Pulse Resp BP Pulse Ox 98.6 F 83 17 153/86 H 97 06/19/18 14:33 06/19/18 18:07 06/19/18 18:07 06/19/18 18:07 06/19/18 18:07 Oxygen Delivery Method Room Air Weight: 183 lb Body Mass Index (BMI) 32.4 Finger Stick Blood Glucose 123 Laboratory Tests Past 24 Hrs 06/19/18 06/19/18 06/19/18 15:20 15:50 15:50 WBC 9.9 RBC 5.36 Hgb 14.2 Hct 46.5 MCV 86.8 MCH 26.5 L MCHC 30.5 L RDW 15.3 H RDW Differential 48.4 H Plt Count 212 MPV 10.1 Immature Gran % (Auto) 0.300 Neut % (Auto) 72.4 H Lymph % (Auto) 19.6 [place] % (Auto) 7.1 Eos % (Auto) 0.4 Baso % (Auto) 0.2 Absolute Neuts (auto) 7.2 Absolute Lymphs (auto) 1.94 Total Counted Not Reportable Sodium 141 Potassium 3.7 Chloride 105 Carbon Dioxide 32.0 Anion Gap 4 L BUN 8 Creatinine 0.51 L Estim Creat Clear Calc 101.89 Est GFR (MDRD) Af Amer 160 Est GFR (MDRD) Non-Af 133 BUN/Creatinine Ratio 15.7 Glucose 85 Lactic Acid Calcium 8.6 Troponin I < 0.015 Urine Color Straw Urine Clarity Sl. Cloudy Urine pH 7.0 Ur Specific [place] 1.010 Urine Protein Negative Urine Glucose (UA) 1000 H Urine Ketones Negative Urine Occult Blood Negative Urine Nitrite Negative Urine Bilirubin Negative Urine Urobilinogen Normal Ur Leukocyte Esterase 25 H Urine RBC 0 SEEN Urine WBC 0 SEEN Ur Squamous Epith Cells 0 SEEN Urine Bacteria 4+ Urine Mucus 0 SEEN 06/19/18 15:50 WBC RBC Hgb Hct MCV MCH MCHC RDW RDW Differential Plt Count MPV Immature Gran % (Auto) Neut % (Auto) Lymph % (Auto) [place] % (Auto) Eos % (Auto) Baso % (Auto) Absolute Neuts (auto) Absolute Lymphs (auto) Total Counted Sodium Potassium Chloride Carbon Dioxide Anion Gap BUN Creatinine Estim Creat Clear Calc Est GFR (MDRD) Af Amer Est GFR (MDRD) Non-Af BUN/Creatinine Ratio Glucose Lactic Acid 1.7 Calcium Troponin I Urine Color Urine Clarity Urine pH Ur Specific [place] Urine Protein Urine Glucose (UA) Urine Ketones Urine Occult Blood Urine Nitrite Urine Bilirubin Urine Urobilinogen Ur Leukocyte Esterase Urine RBC Urine WBC Ur Squamous Epith Cells Urine Bacteria Urine Mucus Assessment/Plan Patient seen by Sandra HILLS under my supervision. Patient admitted from a care home with a complaint of frequent falls which he thinks is due to her walker tripping her up. She has fallen twice a day that she usually falls once daily. She had assisted burning with micturition and some nausea and vomiting. She was therefore brought to the ED. Review of systems is otherwise negative. She is scheduled for colonoscopy tomorrow on account of possibility of colovesical fistula as she keeps on having recurrent UTIs. She states was scheduled with Dr. Banda. o/e: Vital Signs Height 5 ft 3 in Weight: 183 lb Weight in Pounds 183.0 lbs Pulse Ox 97 Temperature 98.6 F Pulse Rate [Standing] 91 Pulse Rate [Sitting] 87 Pulse Rate [Lying] 89 Pulse Rate 83 Respiratory Rate 17 Blood Pressure [Standing] 148/88 Blood Pressure [Sitting] 160/84 Blood Pressure [Lying] 150/86 Blood Pressure 153/86 General: Alert, Oriented x3, Cooperative HEENT: Atraumatic, PERRLA, EOMI, Normocephalic Neck: Supple, No JVD, Negative Carotid Bruits Lungs: Clear to auscultation, Normal air movement Cardiovascular: Regular rate, Regular Rhythm, Normal S1, Normal S2, No murmurs Abdomen: Bowel Sounds Present, Soft, Non Tender, Non-Distended Extremities: No clubbing, No cyanosis, No edema, Capillary Refill Less than 3 Seconds Skin: No rashes, No breakdown Musculoskeletal: No Tenderness to Palpation of Joints or Extremities Neurological: Cranial nerves II-XII grossly intact, Neuro grossly intact Psych/Mental Status: Normal Affect, Appropriate Patient to be admitted and managed for debility due to frequent falls. Fall precautions and consult PT OT as well as case management. Consult Dr. Banda for 12 colonoscopy which was scheduled for tomorrow. Patient already on Levaquin so we will continue with a stop date of July 03, 2018. 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 Also hydrate patient. 5:48pm ED informed me that patient had decided to leave and did not want to be admitted. Code Visit OBSV E&M: [id number] Initial observation care L2
[2018-06-19] MEDS: 0.9% Normal Saline 1,000 ML 150 ML IV (17:37)
--- NOTE | 2018-06-19 17:40 | ED.DEP ---
ED Disposition - Plan for ED Patient: Chief Complaint: Fall Instructions: ED Mechanical Fall, ED Weakness [facility] Referrals: Ruddy Brandt Chi, MD [Primary Care Provider] - 3-5 Days
--- NOTE | 2018-06-19 17:42 | ED.DCSUM_ITS ---
- ER Visit Summary Date of Service: 06/19/18 Chief Complaint: [Addendum to initial dictation] History of Present Illness: The patient is a 57 F [presented with 2 falls today and generalized weakness. Patient complained of some dizziness that made her tripped over her walker and caused her to fall. Patient's workup essentially unremarkable in the department but recommended admission for hydration and patient has colonoscopy scheduled for tomorrow. Patient initially had agreed to admission however after being evaluated by the hospitalist she decided that she did not want to be admitted and would prefer to go home and come back for colonoscopy tomorrow. Patient feels safe going home. Patient is at an assisted living facility. Patient is refusing admission at this time.] Physical Examination: [] Test Results: [] Emergency Department Course and Treatment: [] Treatment Plan: [Patient advised to follow-up with a primary care physician within next 3-5 days.] Disposition: [Discharged home in stable condition.] Impression: [Generalized weakness Falls Dizziness-etiology uncertain] This note was generated with [employer] dictation software. It may contain incorrect words, spelling, and punctuation that were not noted in review of the chart prior to signing ED Disposition - Plan for ED Patient: Chief Complaint: Fall Instructions: ED Mechanical Fall, ED Weakness [facility] Referrals: Ruddy Brandt Chi, MD [Primary Care Provider] - 3-5 Days
--- NOTE | 2018-06-19 17:43 | HP.PCM_ITS ---
Addendum entered and electronically signed by KALEIGH Dan 06/19/18 17:59: Code Visit Informed by ED that patient refusing admission. Original Note: <Sandra Zapata - Last Filed: 06/19/18 17:56> Problem List (1) Anxiety Status: Chronic (2) Iron deficiency Status: Chronic (3) COPD (chronic obstructive pulmonary disease) Status: Chronic (4) History of stroke Status: Chronic (5) Diabetes mellitus Status: Chronic (6) Hyperlipidemia Status: Chronic (7) Esophageal reflux Status: Chronic (8) History of tobacco use Status: Chronic (9) Schizophrenia Status: Chronic (10) Chronic pain Status: Chronic History of Present Illness Date of Admission: 06/19/18 Chief Complaint: Falls, urinary symptoms. The patient is a 57 year old F who presents to the emergency room due to falls at assisted living facility. Patient states she gets lightheaded and tripped over her walker. She denies any injuries related to her falls. Patient reports she is to have a colonoscopy with Dr. Banda due to recurrent UTIs with concern for fistula. She complains of dysuria, suprapubic discomfort and bilateral flank pain. She denies fever, chills. Denies chest pain, shortness of breath. Denies other associated symptoms. Patient has a history of frequent falls with prior admission due to chronic low back pain with frequent falls and physical debility, functional decline. Her past medical history includes chronic back pain, COPD, type 2 diabetes mellitus, history of CVA, hyperlipidemia, GERD, schizophrenia, anxiety, iron deficiency anemia, tobacco dependence. Past Medical History Past Medical History (Chronic Problems): Chronic Problems (Last Reviewed 06/28/17 @ 12:57 by Coretta Pino) Anxiety (Chronic) Iron deficiency (Chronic) COPD (chronic obstructive pulmonary disease) (Chronic) History of stroke (Chronic) Diabetes mellitus (Chronic) Hyperlipidemia (Chronic) Esophageal reflux (Chronic) History of tobacco use (Chronic) Schizophrenia (Chronic) Chronic pain (Chronic) Medical History: Medical History (Last Reviewed 06/28/17 @ 12:57 by Coretta Pino) Cerebral vascular disease I67.9 Hypertension I10 Insomnia G47.00 Mild asthma J45.998 Neuralgia and neuritis M79.2 Spondylosis M47.9 Allergies Iodinated Contrast- Oral and IV Dye [Iodinated Contrast Media - IV Dye] Allergy (Verified 06/19/18 14:36) Hives amoxicillin trihydrate [From Augmentin] Adverse Reaction (Verified 06/19/18 14:36) Itching hydrocodone [From Vicodin] Adverse Reaction (Verified 06/19/18 14:36) Unknown potassium clavulanate [From Augmentin] Adverse Reaction (Verified 06/19/18 14:36) Itching prednisone Adverse Reaction (Verified 06/19/18 14:36) Unknown shellfish derived Adverse Reaction (Verified 06/19/18 14:36) Itching Home Medications: Ambulatory Orders Medication Instructions Recorded Aspirin [Aspirin, Baby] 81 mg PO DAILY@0800 07/25/16 Atorvastatin Calcium [Lipitor] 80 mg PO QHS 07/25/16 Clopidogrel Bisulfate [Plavix] 75 mg PO DAILY 07/25/16 Dulaglutide [Trulicity] 1.5 mg SQ FR 07/25/16 Insulin Degludec [Tresiba 65 unit SQ DAILY 09/23/16 Flextouch U-100] Sucralfate [Carafate] 1 gm PO TID 04/08/17 Cholecalciferol (VIT D3) [Vitamin 3,000 unit PO DAILY 01/13/18 D3] Cyanocobalamin [Vitamin B12] 1 ml IM QMONTH 01/13/18 Fluticasone/Vilanterol [Breo 1 inh PO DAILY 01/13/18 Ellipta 200-25 Mcg INH] traZODone [Desyrel] 100 mg PO QHS PRN 01/23/18 Cyclobenzaprine [Flexeril] 10 mg PO TID PRN PRN #0 tablet 01/27/18 Ferrous Sulfate 325 mg PO BIDCM tablet 01/27/18 Lorazepam [Ativan] 1 mg PO TID PRN PRN #6 tab 01/27/18 Docusate Sodium [Colace] 100 mg PO BID 06/19/18 Empagliflozin [Jardiance] 25 mg PO DAILY 06/19/18 Fluoxetine Hcl 40 mg PO DAILY 06/19/18 Guaifenesin [Mucinex] 600 mg PO DAILY 06/19/18 Levofloxacin [Levaquin] 500 mg PO DAILY 06/19/18 Metformin HCl [Glucophage] 1,000 mg PO BID 06/19/18 Multivitamins,Ther W-Minerals 1 tablet PO DAILY 06/19/18 [Multivitamin With Minerals] Olanzapine [Zyprexa] 10 mg PO QHS 06/19/18 Oxybutynin Chloride [Ditropan Xl] 10 mg PO DAILY 06/19/18 Pilocarpine HCl [Salagen] 5 mg PO TID 06/19/18 Pregabalin 100 mg PO TID 06/19/18 Restasis 1 drop EACH EYE BID 06/19/18 Surgical History: Surgical History (Last Reviewed 06/28/17 @ 12:57 by Coretta Pino) S/P right rotator cuff repair Z98.890 11/27/16 Surgical History: appendectomy, cholecystectomy, hysterectomy, - - Right shoulder surgery Psychiatric History: Anxiety, Schizophrenia [employer] History: No pertinent [employer] history Lives: - - Assisted living facility Smoking Status: Current every day smoker Alcohol: None Drugs: None - *Family History Maternal History Items: - - Patient adopted, denies known maternal medical history. Paternal History Items: - - Patient adopted, denies known paternal medical history. Review of Systems Constitutional: Denies: Chills, Fever, Weight Change HEENT: Denies: Head Aches, Sinus Congestion, Sinus Drainage Cardiovascular: Reports: Light Headedness. Denies: Chest Pain, Edema, Palpitations, Syncope Respiratory: Denies: Cough, Shortness of breath at rest, Sputum production Gastrointestinal: Reports: Nausea, - - Suprapubic tenderness. Denies: Constipation, Diarrhea, Vomiting Genitourinary: Reports: Dysuria. Denies: Hematuria, Incontinence, Retention, Urgency Musculoskeletal: Denies: Joint Pain, Joint Tenderness Skin: Denies: Rash, Wounds Neurological: Reports: Balance problems. Denies: Focal weakness, Numbness, Tingling Psychiatric: Reports: Anxiety Hematologic/ Lymphatic: Denies: Easy Bruising, Easy Bleeding VTE Information - Inpt Only VTE Present on Admission: No VTE Mechan Device Prophylaxis: SCD's VTE Pharm Prophylaxis ordered?: No - Physical Exam General: Alert, Oriented x3, Cooperative HEENT: Atraumatic, PERRLA, EOMI, Normocephalic Neck: Supple, No JVD, Negative Carotid Bruits Lungs: Clear to auscultation, Normal air movement Cardiovascular: Regular rate, Regular Rhythm, Normal S1, Normal S2, No murmurs Abdomen: Bowel Sounds Present, Soft, Non Tender, Non-Distended Extremities: No clubbing, No cyanosis, No edema, Capillary Refill Less than 3 Seconds Skin: No rashes, No breakdown Musculoskeletal: No Tenderness to Palpation of Joints or Extremities Neurological: Cranial nerves II-XII grossly intact, Neuro grossly intact Psych/Mental Status: Normal Affect, Appropriate Vital Signs Temp Pulse Resp BP Pulse Ox 98.6 F 83 18 178/96 H 96 06/19/18 14:33 06/19/18 17:07 06/19/18 17:07 06/19/18 17:07 06/19/18 17:07 Oxygen Delivery Method Room Air Weight: 183 lb Body Mass Index (BMI) 32.4 Finger Stick Blood Glucose 123 Laboratory Tests Past 24 Hrs 06/19/18 06/19/18 06/19/18 15:20 15:50 15:50 WBC 9.9 RBC 5.36 Hgb 14.2 Hct 46.5 MCV 86.8 MCH 26.5 L MCHC 30.5 L RDW 15.3 H RDW Differential 48.4 H Plt Count 212 MPV 10.1 Immature Gran % (Auto) 0.300 Neut % (Auto) 72.4 H Lymph % (Auto) 19.6 [place] % (Auto) 7.1 Eos % (Auto) 0.4 Baso % (Auto) 0.2 Absolute Neuts (auto) 7.2 Absolute Lymphs (auto) 1.94 Total Counted Not Reportable Sodium 141 Potassium 3.7 Chloride 105 Carbon Dioxide 32.0 Anion Gap 4 L BUN 8 Creatinine 0.51 L Estim Creat Clear Calc 101.89 Est GFR (MDRD) Af Amer 160 Est GFR (MDRD) Non-Af 133 BUN/Creatinine Ratio 15.7 Glucose 85 Lactic Acid Calcium 8.6 Troponin I < 0.015 Urine Color Straw Urine Clarity Sl. Cloudy Urine pH 7.0 Ur Specific [place] 1.010 Urine Protein Negative Urine Glucose (UA) 1000 H Urine Ketones Negative Urine Occult Blood Negative Urine Nitrite Negative Urine Bilirubin Negative Urine Urobilinogen Normal Ur Leukocyte Esterase 25 H Urine RBC 0 SEEN Urine WBC 0 SEEN Ur Squamous Epith Cells 0 SEEN Urine Bacteria 4+ Urine Mucus 0 SEEN 06/19/18 15:50 WBC RBC Hgb Hct MCV MCH MCHC RDW RDW Differential Plt Count MPV Immature Gran % (Auto) Neut % (Auto) Lymph % (Auto) [place] % (Auto) Eos % (Auto) Baso % (Auto) Absolute Neuts (auto) Absolute Lymphs (auto) Total Counted Sodium Potassium Chloride Carbon Dioxide Anion Gap BUN Creatinine Estim Creat Clear Calc Est GFR (MDRD) Af Amer Est GFR (MDRD) Non-Af BUN/Creatinine Ratio Glucose Lactic Acid 1.7 Calcium Troponin I Urine Color Urine Clarity Urine pH Ur Specific [place] Urine Protein Urine Glucose (UA) Urine Ketones Urine Occult Blood Urine Nitrite Urine Bilirubin Urine Urobilinogen Ur Leukocyte Esterase Urine RBC Urine WBC Ur Squamous Epith Cells Urine Bacteria Urine Mucus Assessment/Plan 1. Debility, frequent falls-chest x-ray unremarkable. Currently resides in assisted living facility. Case management consult for further discharge planning needs. 2. Recurrent cystitis-scheduled for colonoscopy with Dr. Banda tomorrow, consult. Concern for colovesical fistula. Continue Levaquin regimen with stop date 07/03/2018. Urine culture pending. 3. Type 2 diabetes mellitus- hold home oral regimen. Accu-Chek before meals at bedtime with sliding scale insulin. Continue home long-acting regimen. 4. Chronic back pain-PT/OT. Continue home gabapentin, Flexeril regimen. 5. History of CVA-continue aspirin, statin, Plavix. 6. Chronic COPD-no acute exacerbation. Albuterol aerosol as needed. 7. Hyperlipidemia-continue statin. 8. GERD- continue carafate regimen. 9. Schizophrenia/Anxiety-continue home regimen. 10. Iron deficiency anemia-continue iron supplementation. 11. Tobacco dependence-encourage smoking cessation. Nicotine replacement patch if desired. DVT prophylaxis-Lovenox sc This patient was seen by KALEIGH Dan under the supervision of Dr. Carter. <Joan Carter - Last Filed: 06/19/18 18:47> History of Present Illness The patient is a 57 year old F [] Past Medical History Medical History: Medical History (Last Reviewed 06/28/17 @ 12:57 by Coretta Pino) Cerebral vascular disease I67.9 Hypertension I10 Insomnia G47.00 Mild asthma J45.998 Neuralgia and neuritis M79.2 Spondylosis M47.9 Allergies Iodinated Contrast- Oral and IV Dye [Iodinated Contrast Media - IV Dye] Allergy (Verified 06/19/18 14:36) Hives amoxicillin trihydrate [From Augmentin] Adverse Reaction (Verified 06/19/18 14:36) Itching hydrocodone [From Vicodin] Adverse Reaction (Verified 06/19/18 14:36) Unknown potassium clavulanate [From Augmentin] Adverse Reaction (Verified 06/19/18 14:36) Itching prednisone Adverse Reaction (Verified 06/19/18 14:36) Unknown shellfish derived Adverse Reaction (Verified 06/19/18 14:36) Itching Surgical History: Surgical History (Last Reviewed 06/28/17 @ 12:57 by Coretta Pino) S/P right rotator cuff repair Z98.890 11/27/16 - Physical Exam Vital Signs Temp Pulse Resp BP Pulse Ox 98.6 F 83 17 153/86 H 97 06/19/18 14:33 06/19/18 18:07 06/19/18 18:07 06/19/18 18:07 06/19/18 18:07 Oxygen Delivery Method Room Air Weight: 183 lb Body Mass Index (BMI) 32.4 Finger Stick Blood Glucose 123 Laboratory Tests Past 24 Hrs 06/19/18 06/19/18 06/19/18 15:20 15:50 15:50 WBC 9.9 RBC 5.36 Hgb 14.2 Hct 46.5 MCV 86.8 MCH 26.5 L MCHC 30.5 L RDW 15.3 H RDW Differential 48.4 H Plt Count 212 MPV 10.1 Immature Gran % (Auto) 0.300 Neut % (Auto) 72.4 H Lymph % (Auto) 19.6 [place] % (Auto) 7.1 Eos % (Auto) 0.4 Baso % (Auto) 0.2 Absolute Neuts (auto) 7.2 Absolute Lymphs (auto) 1.94 Total Counted Not Reportable Sodium 141 Potassium 3.7 Chloride 105 Carbon Dioxide 32.0 Anion Gap 4 L BUN 8 Creatinine 0.51 L Estim Creat Clear Calc 101.89 Est GFR (MDRD) Af Amer 160 Est GFR (MDRD) Non-Af 133 BUN/Creatinine Ratio 15.7 Glucose 85 Lactic Acid Calcium 8.6 Troponin I < 0.015 Urine Color Straw Urine Clarity Sl. Cloudy Urine pH 7.0 Ur Specific [place] 1.010 Urine Protein Negative Urine Glucose (UA) 1000 H Urine Ketones Negative Urine Occult Blood Negative Urine Nitrite Negative Urine Bilirubin Negative Urine Urobilinogen Normal Ur Leukocyte Esterase 25 H Urine RBC 0 SEEN Urine WBC 0 SEEN Ur Squamous Epith Cells 0 SEEN Urine Bacteria 4+ Urine Mucus 0 SEEN 06/19/18 15:50 WBC RBC Hgb Hct MCV MCH MCHC RDW RDW Differential Plt Count MPV Immature Gran % (Auto) Neut % (Auto) Lymph % (Auto) [place] % (Auto) Eos % (Auto) Baso % (Auto) Absolute Neuts (auto) Absolute Lymphs (auto) Total Counted Sodium Potassium Chloride Carbon Dioxide Anion Gap BUN Creatinine Estim Creat Clear Calc Est GFR (MDRD) Af Amer Est GFR (MDRD) Non-Af BUN/Creatinine Ratio Glucose Lactic Acid 1.7 Calcium Troponin I Urine Color Urine Clarity Urine pH Ur Specific [place] Urine Protein Urine Glucose (UA) Urine Ketones Urine Occult Blood Urine Nitrite Urine Bilirubin Urine Urobilinogen Ur Leukocyte Esterase Urine RBC Urine WBC Ur Squamous Epith Cells Urine Bacteria Urine Mucus Assessment/Plan Patient seen by Sandra HILLS under my supervision. Patient admitted from a shelter with a complaint of frequent falls which he thinks is due to her walker tripping her up. She has fallen twice a day that she usually falls once daily. She had assisted burning with micturition and some nausea and vomiting. She was therefore brought to the ED. Review of systems is otherwise negative. She is scheduled for colonoscopy tomorrow on account of possibility of colovesical fistula as she keeps on having recurrent UTIs. She states was scheduled with Dr. Banda. o/e: Vital Signs Height 5 ft 3 in Weight: 183 lb Weight in Pounds 183.0 lbs Pulse Ox 97 Temperature 98.6 F Pulse Rate [Standing] 91 Pulse Rate [Sitting] 87 Pulse Rate [Lying] 89 Pulse Rate 83 Respiratory Rate 17 Blood Pressure [Standing] 148/88 Blood Pressure [Sitting] 160/84 Blood Pressure [Lying] 150/86 Blood Pressure 153/86 General: Alert, Oriented x3, Cooperative HEENT: Atraumatic, PERRLA, EOMI, Normocephalic Neck: Supple, No JVD, Negative Carotid Bruits Lungs: Clear to auscultation, Normal air movement Cardiovascular: Regular rate, Regular Rhythm, Normal S1, Normal S2, No murmurs Abdomen: Bowel Sounds Present, Soft, Non Tender, Non-Distended Extremities: No clubbing, No cyanosis, No edema, Capillary Refill Less than 3 Seconds Skin: No rashes, No breakdown Musculoskeletal: No Tenderness to Palpation of Joints or Extremities Neurological: Cranial nerves II-XII grossly intact, Neuro grossly intact Psych/Mental Status: Normal Affect, Appropriate Patient to be admitted and managed for debility due to frequent falls. Fall precautions and consult PT OT as well as case management. Consult Dr. Banda for 12 colonoscopy which was scheduled for tomorrow. Patient already on Levaquin so we will continue with a stop date of July 03, 2018. Rest of management as per Sandra Zapata [employer]ODUCT [employer]ELOPMENT [employer]-C's above note. Also hydrate patient. 5:48pm ED informed me that patient had decided to leave and did not want to be admitted. Code Visit OBSV E&M: [id number] Initial observation care L2
[2018-06-19 18:06] VITALS: RESP 16
[2018-06-19 18:07] VITALS: BP 153/86; PULSE 83; RESP 17; O2SAT 97
--- NOTE | 2018-06-19 18:08 | ED.RN ---
REVIEWED D/C INSTRUCTIONS, FOLLOW UP CARE, AND S/S THAT WOULD WARRANT A RETURN TO THE ED WITH PT. PT VERBALIZED AN UNDERSTANDING AND DENIES FURTHER QUESTIONS FOR THIS RN. PT SKIN P/W/D, RESP EVEN AND UNLABORED, PT A&O X 3, NO DISTRESS NOTED. PT AMBULATED OUT OF ED INTO WAITING ROOM TO WAIT FOR CAB.
== END 2018-06-19 18:09 | disposition home or self-care (01) ==
PROVIDERS: Emergency Provider Emergency Medicine; Family Provider Family Medicine Geriatric Medicine; PCP Family Medicine Geriatric Medicine
DX: R53.1 Weakness (principal); R42 Dizziness and giddiness; R30.0 Dysuria; R35.0 Frequency of micturition; K21.9 Gastro-esophageal reflux disease without esophagitis; E11.9 Type 2 diabetes mellitus without complications; E78.00 Pure hypercholesterolemia, unspecified; J44.9 Chronic obstructive pulmonary disease, unspecified; Z86.73 Personal history of transient ischemic attack (TIA), and cerebral infarction without residual deficits; Z72.0 Tobacco use; Z91.81 History of falling
CPT/HCPCS: 71045; 74018; 80048; 81001; 83605; 84484; 85025; 87077; 87086; 87088; 87186; 93005; 96360; 96361; 99285; J7030

== ENCOUNTER → 2018-06-20 09:00 | Outpatient (CLI) | payer MEDICARE, SELFPAY ==
[2018-06-19 14:33] VITALS: BMI 32.4
--- NOTE | 2018-06-20 09:30 | RAD_ITS ---
STUDY: GASTROGRAFIN ENEMA. REASON FOR EXAM: Female, 57 years old. Possible colovesical fistula. Lower abdominal pain. FLUOROSCOPY TIME (if supplied): (1:15) minutes/seconds. 10 images were obtained. TECHNIQUE: Gastrografin was introduced retrograde through the rectum. The entire colon was opacified. COMPARISON: None. FINDINGS: There is redundancy of the sigmoid colon. A moderate amount of residual fecal material is seen throughout the colon. A small mass or polypoid lesion cannot be excluded. There is no evidence of antegrade or retrograde obstruction to the flow of contrast. No colovesical fistula is seen at this time. RAD/Barium Enema No Air Cont IMPRESSION: Moderate amount of residual fecal material. Redundant sigmoid colon. No colovesical fistula is seen at this time. Electronically Signed: Armando Qureshi MD at 15:45 EST Tel [phone], Service support ,
[2018-06-20 12:25] LABS: Absolute Lymphocyte Count 1.62 X10^3/ul (0.83-4.51); Absolute Neutrophil Count 6.5 X10^3/uL (2.0-7.7); Basophil# 0.01 X10^3/uL; Basophil% 0.1 % (0-1); Eosinophil# 0.05 X10^3/uL; Eosinophils% 0.6 % (0-5); Hemoglobin 14.8 g/dl (12.0-15.0); Lymphocyte # 1.62 X10^3/ul (4.0); Lymphocyte % 18.3 % (19-41); Mean Corp Hgb Conc 30.8 g/gl (32-36); Mean Corpuscular Hgb 26.9 pg (27.0-32.0); Mean Corpuscular Volume 87.3 fL (81-99); Monocyte# 0.67 X10^3/uL; Monocyte% 7.6 % (0-10); Neutrophil # 6.49 X10^3/uL (2.7-7.7); Neutrophil % 73.3 % (47-70); Platelet Count 223 K/mm3 (150-450); RBC Distribution Width CV 15.5 % (11.6-14.6); RBC Distribution Width SD 49.4 fl (35.1-43.9); White Blood Count 8.9 K/mm3 (4.4-11.0)
[2018-06-20 12:27] LABS: POSITIVE COUNT NO; POSITIVE DIFFERENTIAL NO; POSITIVE MORPHOLOGY NO
[2018-06-20 12:49] LABS: AST(SGOT) 27 U/L (15-37); Alanine Aminotransfer ALT/SGPT 41 U/L (13-56); Albumin, Serum 3.7 g/dL (3.2-5.0); Alkaline Phosphatase 97 U/L (45-117); Anion Gap 7 (5-15); BUN 7 mg/dL (7-18); BUN/Creat Ratio 10.6 RATIO (10-20); Chloride 102 mmol/L (98-107); Creatinine, Serum 0.66 mg/dL (0.55-1.02); EST Glomerular Filtration Rate 98 mL/min (>60); Est Glom Filt Rate - Afr Amer 118 mL/min (>60); Globulin 3.6 g/dL (2.2-4.2); Glucose 102 mg/dL (74-106); Potassium 4.1 mmol/L (3.5-5.1); Protein, Total 7.3 g/dL (6.4-8.2); Sodium Level 140 mmol/L (136-145)
== END ==
PROVIDERS: Family Provider Family Medicine Geriatric Medicine; PCP Family Medicine Geriatric Medicine; Visit Provider Family Medicine Geriatric Medicine
DX: E11.9 Type 2 diabetes mellitus without complications (principal); R10.30 Lower abdominal pain, unspecified
CPT/HCPCS: 36415; 74270; 80053; 84443; 85025

== ENCOUNTER 2019-03-08 12:16 | Inpatient (IN) | payer MEDICARE, MEDICAID, SELFPAY ==
[2019-03-08] VITALS (8 sets, daily range): BP systolic 135–174; BP diastolic 78–112; PULSE 83–107; RESP 12–22; TEMP 36.5–37.3; O2SAT 89–98; BMI 36.1; BMI 32.4
--- NOTE | 2019-03-08 12:36 | RAD_ITS ---
STUDY: X-RAY - PELVIS AND LEFT HIP REASON FOR EXAM: Female, 58 years old. Fall today, left hip pain TECHNIQUE: 3 views of the pelvis and hip. COMPARISON: None. FINDINGS: There is a non-specific bowel gas pattern. Normal visualized soft tissue structures. Neurostimulator device noted. There are surgical clips project in the right lower abdomen. Normal bilateral iliac wings, sacroiliac joints and visualized sacrum. Normal bilateral superior and inferior pubic rami. Normal pubic symphysis. Normal bilateral ischial tuberosities. There is a fracture of the intratrochanteric proximal femur with a longitudinal component extending into the proximal femoral diaphysis. There is approximately 6 mm of displacement seen on frog leg view. Normal acetabulum. Normal hip joint. RAD/HIP, UNI W/ Pelvis 2-3 Views IMPRESSION: Left intratrochanteric/proximal femur fracture. Electronically Signed: Kaiser Ruano MD ([place]) at 13:37 EDT , Service support ,
--- NOTE | 2019-03-08 12:36 | CT_ITS ---
STUDY: CT BRAIN WITHOUT CONTRAST REASON FOR EXAM: Female, 58 years old. Fall, history of prior CVA RADIATION DOSAGE (If Supplied By Facility): CTDIvol = ( 44.99 ) mGy, DLP = ( 745.49 ) mGycm TECHNIQUE: Transaxial CT imaging of the brain was performed without administration of intravenous contrast material. Individualized dose optimization techniques were used for this CT. COMPARISON: 01/17/2018 FINDINGS: Normal soft tissue structures. Normal calvarium. There is mild cerebral atrophy with widening of the extra-axial spaces and ventricular dilatation. There are areas of decreased attenuation within the white matter tracts of the supratentorial brain, consistent with microvascular disease changes. Encephalomalacia and gliosis of the parieto-occipital lobes adjacent to the falx overall similar since the prior study. Normal basal ganglia and thalami. Normal brainstem. Normal cerebellum. There is no intracranial hemorrhage. There are no findings of an acute ischemic infarction. Normal visualized paranasal sinuses. CT/Brain/Head without Contrast IMPRESSION: 1. No acute intracranial hemorrhage or mass effect. 2. Stable ischemic changes of the parieto-occipital lobes. Electronically Signed: Kaiser Ruano MD ([place]) at 13:14 EDT , Service support ,
--- NOTE | 2019-03-08 12:36 | EKG12_ITS ---
Test Reason : PRE-OP Blood Pressure : / mmHG Vent. Rate : 077 BPM Atrial Rate : 077 BPM P-R Int : 142 ms QRS Dur : 082 ms QT Int : 356 ms P-R-T Axes : 041 -02 041 degrees QTc Int : 402 ms Normal sinus rhythm Moderate voltage criteria for LVH, may be normal variant Borderline ECG Confirmed by ABEL SOARES, NADINE ([id number]), non linear editor RC MOSES ([id number]) on 03/11/2019 11:45:53 AM Referred By: Asif Gtz Confirmed By:NADINE ROMAN MD
--- NOTE | 2019-03-08 12:36 | RAD_ITS ---
STUDY: X-RAY CHEST REASON FOR EXAM: Female, 58 years old. Fall today TECHNIQUE: AP COMPARISON: 06/19/2018 FINDINGS: EKG leads project over the chest. The lungs are clear and expanded. There is no demonstrated pleural abnormality. Normal size heart. Normal mediastinum and danita. Normal visualized pulmonary arteries. Normal visualized aortic arch and descending thoracic aorta. Normal visualized thoracic spine. Normal visualized ribs, clavicles, and shoulders. There is no demonstrated abnormality of the visualized soft tissue structures of the upper abdomen. RAD/Chest 1 View (Portable) IMPRESSION: Stable, nonacute portable x-ray examination of the chest. Electronically Signed: Kaiser Ruano MD ([place]) at 13:35 EDT , Service support ,
--- NOTE | 2019-03-08 12:37 | RAD_ITS ---
STUDY: X-RAY - LUMBAR SPINE REASON FOR EXAM: Female, 58 years old. Fall today, pain TECHNIQUE: 3 view(s) of the lumbar spine were obtained. COMPARISON: 01/21/2018 FINDINGS: Normal lumbar lordosis. There is no substantial scoliosis. There is a normal alignment of the vertebrae. There is diffuse demineralization with multi-level endplate spondylosis. There is transitional anatomy of lumbosacral junction. Facet arthropathy of the lower lumbar levels noted. Similar mild disc space narrowing. Neurostimulator device identified. Surgical clips in the right lower and upper abdomen present. There is no demonstrated fracture. There is atherosclerotic calcification of the abdominal aorta without a demonstrated aneurysm. RAD/Lumbar Spine 2 or 3 Views IMPRESSION: No compression fracture. Similar degenerative changes since 2018. Electronically Signed: Kaiser Ruano MD ([place]) at 13:38 EDT , Service support ,
--- NOTE | 2019-03-08 12:46 | ED.DCSUM_ITS ---
History of Present Illness Chief Complaint: Fall Informant: Patient Occurred: Today - JPTA Mechanism/Context: Same level fall, Slip Location: left hip Quality of Pain: Aching Current Severity: Severe Maximum Severity: Severe Worsened by: any movement Relieved by: remaining still Associated Symptoms: Loss of function, Inability to ambulate. Negative for: Loss of consciousness, Amnesia Narrative: Patient has a history of stroke and takes aspirin and Plavix, walks with a cane at baseline with residual right hemiparesis. She slipped and accidentally fell today, landing on her left hip. She denies any other known injuries, but cannot remember if she hit her head or not. She denies having a headache right now. No neck or back pain. - Past Medical History (1) Bipolar disorder Status: Chronic (2) Anxiety Status: Chronic (3) COPD (chronic obstructive pulmonary disease) Status: Chronic (4) Chronic pain Status: Chronic (5) Diabetes mellitus Status: Chronic (6) Esophageal reflux Status: Chronic (7) Hyperlipidemia Status: Chronic (8) Iron deficiency Status: Chronic (9) Schizophrenia Status: Chronic (10) CVA (cerebral vascular accident) Status: Chronic Past Medical History - Allergies and Home Meds Allergies/Adverse Reactions: Allergies Iodinated Contrast Media [Iodinated Contrast Media - IV Dye] Allergy (Verified 06/19/18 14:36) Hives amoxicillin trihydrate [From Augmentin] Adverse Reaction (Verified 06/19/18 14:36) Itching hydrocodone [From Vicodin] Adverse Reaction (Verified 06/19/18 14:36) Unknown potassium clavulanate [From Augmentin] Adverse Reaction (Verified 06/19/18 14:36) Itching prednisone Adverse Reaction (Verified 06/19/18 14:36) Unknown shellfish derived Adverse Reaction (Verified 06/19/18 14:36) Itching Primary Care Physician: Ruddy Brandt Chi, MD [COURTESY STAFF PHYSICIAN] - Surgical History: appendectomy, cholecystectomy, hysterectomy, - - Right shoulder surgery Smoking Status: Current every day smoker Drugs: None - Family History Maternal Family History: Reports: - - Patient adopted, denies known maternal medical history. Paternal Family History: Reports: - - Patient adopted, denies known paternal medical history. Review of Systems General: Denies: Chills, Fever Eyes: Denies: Visual changes - bilaterally, Diplopia ENT: Denies: Rhinorrhea, Sore throat Cardiovascular: Denies: Chest pain, Palpitations Respiratory: Denies: Dyspnea, Cough, Dyspnea on exertion Gastrointestinal: Denies: Abdominal pain, Nausea, Vomiting, Diarrhea, Melena, Hematochezia Genitourinary: Denies: Dysuria, Hematuria, Frequency Musculoskeletal: Reports: Extremity Pain. Denies: Back pain Skin: Denies: Rash, Wounds Neurological: Reports: Weakness - Chronic right side, unchanged. Denies: Headache, Parasthesia, Numbness Physical Exam Vital Signs/Narrative: Vital Signs Temp Pulse Resp BP Pulse Ox 03/08/19 12:17 98.3 F 92 22 H 165/82 H 96 Inital Vital Signs reviewed: Yes General: Well nourished, Well developed, - - Painful distress with regards to left hip Head: Normocephalic, Atraumatic Eyes: Perrl, EOMI ENT: TM's clear, No hemotympanum or drainage, No trauma. Negative for: Otorrhea, Nasal trauma Neck: Nontender, Full ROM Cardiovascular: Regular rate, Regular rhythm, No murmurs Respiratory: No distress, CTA bilaterally, Chest nontender Abdomen: Soft, Nontender, Nondistended, Normal bowel sounds Back: Spinal Tenderness - Mild, lower lumbosacral spine. No step-off or signs of trauma. This is after patient rolled off of hard backboard. No other areas of spinal tenderness. Extremeties: Tenderness left hip, no overt signs of trauma externally but left lower extremity is shortened and externally rotated. All thigh compartments are soft and nondistended. The rest of her left lower extremity is nontender. Full range of motion throughout all 3 other extremities without pain or tenderness. Skin: Normal color, No rash, No Trauma - Skin intact Neurological: Alert, Oriented x3, Cranial nerves II-XII grossly intact, Normal Sensation, Weakness - Right side compared with left, mild Psychological: Tearful Diagnostic/Tx/Re-eval Impressions Brain CT 03/08/19 12:36 IMPRESSION: 1. No acute intracranial hemorrhage or mass effect. 2. Stable ischemic changes of the parieto-occipital lobes. Electronically Signed: Kaiser Ruano MD (Brooks) at 13:14 EDT , Service support , Chest X-Ray 03/08/19 12:36 IMPRESSION: Stable, nonacute portable x-ray examination of the chest. Electronically Signed: Kaiser Ruano MD (Brooks) at 13:35 EDT , Service support , Hip/Pelvis X-Ray 03/08/19 12:36 IMPRESSION: Left intratrochanteric/proximal femur fracture. Electronically Signed: Kaiser Ruano MD (Brooks) at 13:37 EDT , Service support , Lumbar Spine X-Ray 03/08/19 12:37 IMPRESSION: No compression fracture. Similar degenerative changes since 2018. Electronically Signed: Kaiser Ruano MD (Brooks) at 13:38 EDT , Service support , 03/08/19 12:36 Brain/Head without Contrast [CT] Stat Chest 1 View (Portable) [RAD] Stat HIP, UNI W/ Pelvis 2-3 Views [RAD] Stat 03/08/19 12:37 Lumbar Spine 2 or 3 Views [RAD] Stat Laboratory Results 03/08/19 03/08/19 12:45 12:45 WBC 14.8 H RBC 5.53 H Hgb 16.4 H Hct 48.7 H MCV 88.1 MCH 29.7 MCHC 33.7 RDW Std Deviation 44.4 H RDW Coeff of Gael 13.8 Plt Count 174 MPV 10.2 Immature Gran % (Auto) 1.000 H Neut % (Auto) 79.7 H Lymph % (Auto) 13.9 L [place] % (Auto) 4.7 Eos % (Auto) 0.5 Baso % (Auto) 0.2 Absolute Neuts (auto) 11.8 H Absolute Lymphs (auto) 2.05 Nucleated RBC % 0 Sodium 141 Potassium 4.2 Chloride 107 Carbon Dioxide 25.0 Anion Gap 9 BUN 13 Creatinine 0.81 Estim Creat Clear Calc 63.39 Est GFR (MDRD) Af Amer 94 Est GFR (MDRD) Non-Af 77 BUN/Creatinine Ratio 16.0 Glucose 157 H Calcium 9.2 - EKG Initial EKG Interpretation: Sinus Rhythm, No Acute Injury Pattern Prior: Unchanged - Medical Decision Making Patient was given morphine prior to x-ray, we did roll her off of the backboard carefully evaluate her back, she is mildly tender in her low back, x-rays were negative so I suspect this was due to the backboard. Head CT shows no acute injury, hip x-ray confirms a fracture, it is intertrochanteric with extension about 11 cm down the femoral shaft medially, that part looks nondisplaced. Her pain was controlled with several doses of morphine, and the patient is requesting the [facility], who is not on-call for unassigned today. I discussed with their physician regulatory affairs assistant who was available by telephone, who said they would be happy to consult on the patient in the morning. ED Disposition - Plan for ED Patient: Disposition: Acute Care Hospital [facility] Diagnosis: Closed intertrochanteric fracture of left hip, Fall from slip, trip, or stumble Referrals: Ruddy Brandt Chi, MD [COURTESY STAFF PHYSICIAN] -
[2019-03-08 12:52] LABS: Absolute Lymphocyte Count 2.05 X10^3/uL (0.83-4.51); Absolute Neutrophil Count 11.8 X10^3/uL (2.0-7.7); Basophil# 0.03 X10^3/uL; Basophil% 0.2 % (0-1); Eosinophil# 0.08 X10^3/uL; Eosinophils% 0.5 % (0-5); Hematocrit 48.7 % (37-47); Hemoglobin 16.4 g/dL (12.0-15.0); Lymphocyte # 2.05 X10^3/ul (4.0); Lymphocyte % 13.9 % (19-41); Mean Corp Hgb Conc 33.7 g/dL (32-36); Mean Corpuscular Hgb 29.7 pg (27.0-32.0); Mean Corpuscular Volume 88.1 fL (81-99); Mean Platelet Vol. 10.2 fl (6.2-12.0); Monocyte# 0.69 X10^3/uL; Monocyte% 4.7 % (0-10); NRBC Flagged by Analyzer 0 % (0-5); Neutrophil # 11.76 X10^3/uL (2.7-7.7); Neutrophil % 79.7 % (47-70); Platelet Count 174 K/mm3 (150-450); RBC Distribution Width CV 13.8 % (11.6-14.6); RBC Distribution Width SD 44.4 fl (35.1-43.9); Red Blood Count 5.53 M/mm3 (4.2-5.4); White Blood Count 14.8 K/mm3 (4.4-11.0)
[2019-03-08] MEDS: Morphine 4 MG/ML Syringe IV ×3 (12:53→20:00)
[2019-03-08 13:05] LABS: Anion Gap 9 (5-15); BUN 13 mg/dL (7-18); Calcium,Total 9.2 mg/dL (8.5-10.1); Chloride 107 mmol/L (98-107); Creatinine, Serum 0.81 mg/dL (0.55-1.02); EST Glomerular Filtration Rate 77 mL/min (>60); Est Glom Filt Rate - Afr Amer 94 mL/min (>60); Estimated Creatinine Clearance 63.39 ml/min; Glucose 157 mg/dL (74-106); Potassium 4.2 mmol/L (3.5-5.1); Sodium Level 141 mmol/L (136-145)
[2019-03-08] MEDS: Morphine 2 MG/ML Syringe IV (14:21)
--- NOTE | 2019-03-08 14:29 | NURSING ---
[address] HIP FX
--- NOTE | 2019-03-08 15:02 | ED.RN ---
Some medications and PRN meds are not on med list given.
[2019-03-08 15:50] LABS: Bedside Glucose 154 mg/dL (70-110)
[2019-03-08] MEDS: 0.9% Normal Saline 1,000 ML 100 ML IV (15:54)
[2019-03-08] MEDS: LORazepam 1 MG Tablet PO (16:32)
[2019-03-08] MEDS: Ferrous Sulfate 325 MG Tablet PO (16:32)
[2019-03-08] MEDS: Insulin Lispro 100 UNIT/ML INSULN.PEN SC ×2 (16:32→21:43)
[2019-03-08] MEDS: metFORMIN HCl 1,000 MG Tablet 1000 MG PO (17:10)
[2019-03-08] MEDS: oxyCODONE 5 MG Tablet 10 MG PO ×2 (17:12→21:50)
[2019-03-08] MEDS: Albuterol 2.5 MG/3 ML VIAL.NEB. INHALATION (18:48)
--- NOTE | 2019-03-08 19:50 | PCM.HP.STD ---
Problem List (1) Left hip pain Status: Acute History of Present Illness Date of Admission: 03/08/19 Chief Complaint: Left hip pain, inability to bear weight on the left hip The patient is a 58 year old F was seen in the emergency room today after being transported by squad from a local extended care facility after suffering a fall due to a misstep, she complained of left hip pain was unable to bear weight on her left hip, she complained of severe pain in her left hip.. Work-up in the emergency room included x-rays of the left hip which showed a left intertrochanteric fracture. Patient has an extensive medical history which includes schizophrenia, bipolar disorder, type 2 diabetes, panic obstructive pulmonary disease, and past history of a stroke. Patient is also on medications for chronic pain. Lab obtained on the patient today showed an elevated white blood cell count 14.8, hemoglobin was 16.4, chemistry profile was remarkable for an elevated glucose of 157. Patient's chest x-ray showed no acute pulmonary process, patient's head CT revealed stable ischemic changes of the parietal occipital lobes. Patient will be admitted for an acute left intertrochanteric hip fracture, she will be seen in consultation by orthopedic surgery, patient will remain on her present medications with the exception of Plavix which I will hold for now. Past Medical History Past Medical History (Chronic Problems): Chronic Problems (Last Reviewed 06/28/17 @ 12:57 by Coretta Pino) Anxiety (Chronic) Iron deficiency (Chronic) Bipolar disorder (Chronic) CVA (cerebral vascular accident) (Chronic) COPD (chronic obstructive pulmonary disease) (Chronic) History of stroke (Chronic) Diabetes mellitus (Chronic) Hyperlipidemia (Chronic) Esophageal reflux (Chronic) History of tobacco use (Chronic) Schizophrenia (Chronic) Chronic pain (Chronic) Medical History: Medical History (Last Reviewed 06/28/17 @ 12:57 by Coretta Pino) Cerebral vascular disease I67.9 Hypertension I10 Insomnia G47.00 Mild asthma J45.998 Neuralgia and neuritis M79.2 Spondylosis M47.9 Allergies Iodinated Contrast Media [Iodinated Contrast Media - IV Dye] Allergy (Verified 03/08/19 14:28) Hives amoxicillin trihydrate [From Augmentin] Adverse Reaction (Verified 03/08/19 14:28) Itching hydrocodone [From Vicodin] Adverse Reaction (Verified 03/08/19 14:28) Unknown potassium clavulanate [From Augmentin] Adverse Reaction (Verified 03/08/19 14:28) Itching prednisone Adverse Reaction (Verified 03/08/19 14:28) Unknown shellfish derived Adverse Reaction (Verified 03/08/19 14:28) Itching Home Medications: Ambulatory Orders Medication Instructions Recorded Atorvastatin Calcium [Lipitor] 80 mg PO QHS 07/25/16 Clopidogrel Bisulfate [Plavix] 75 mg PO DAILY 07/25/16 Dulaglutide [Trulicity] 0.75 mg SQ FR 07/25/16 traZODone [Desyrel] 100 mg PO QHS PRN 01/23/18 Empagliflozin [Jardiance] 25 mg PO DAILY 06/19/18 Guaifenesin [Mucinex] 600 mg PO DAILY 06/19/18 Olanzapine [Zyprexa] 10 mg PO QHS 06/19/18 Oxybutynin Chloride [Ditropan Xl] 10 mg PO QHS 06/19/18 Pregabalin 150 mg PO BID 06/19/18 metFORMIN HCl [Glucophage] 1,000 mg PO BID 06/19/18 Amlodipine [Norvasc] 5 mg PO DAILY 03/08/19 Buprenorphine [Butrans 15 Mcg/Hr 1 ea TD QWEEK 03/08/19 Patch] CycloSPORINE Ophthalmic [Restasis 1 drp EACH EYE DAILY 03/08/19 Ophthalmic] Duloxetine Hcl [Cymbalta] 120 mg PO DAILY 03/08/19 Epi Pen (for allergic rxn) 0.3 mg PRN PRN 03/08/19 Famotidine [Pepcid] 20 mg PO BID 03/08/19 Ferrous Sulfate 325 mg PO BIDCM 03/08/19 Formoterol Fumarate [Perforomist] 20 mcg INHALATION BID 03/08/19 Ibuprofen 400 mg PO Q8H PRN PRN 03/08/19 Insulin Degludec [Tresiba 65 unit SQ DAILY 03/08/19 Flextouch U-100] Lorazepam [Ativan] 1 mg PO Q6H 03/08/19 Olanzapine [Zyprexa] 5 mg PO BID 03/08/19 Ondansetron HCl [Zofran] 4 mg PO Q6H PRN PRN 03/08/19 Oxycodone HCl/Acetaminophen 1 tab PO 4X/DAY 03/08/19 [Oxycodone-Acetaminophen 10-325] Prazosin HCl [Minipress] 1 mg PO QHS 03/08/19 Surgical History: Surgical History (Last Reviewed 06/28/17 @ 12:57 by Coretta Pino) S/P right rotator cuff repair Z98.890 11/27/16 Surgical History: appendectomy, cholecystectomy, hysterectomy, - - Right shoulder surgery Psychiatric History: Anxiety, Bipolar, Schizophrenia 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 Paternal History Items: - - Patient adopted, denies known paternal medical history. Review of Systems Constitutional: Denies: Anorexia, Chills, Fever, Night Sweats, Malaise, Weakness, Weight Change, Fatigue Eyes: Denies: Cataracts, Conjunctivae Inflammation, Double vision, Drainage HEENT: Denies: Difficulty Swallowing, Dysphasia, Ear Pain, Eye Pain, Hearing Changes, Nasal bleeding, Nasal Congestion, Post Nasal Drip Cardiovascular: Denies: Chest Pain, Claudication, Chest Pressure, Chest Tightness, Edema, Palpitations Respiratory: Denies: Cough, Hemoptysis, Pleuritic Pain, Shortness of breath at rest, Shortness of breath upon exertion Gastrointestinal: Denies: Abdominal Pain, Constipation, Diarrhea, Hematemesis, Hematochezia, Nausea, Melena, Vomiting Genitourinary: Denies: Dysuria, Frequency, Hematuria, Hesitancy, Urgency Musculoskeletal: Reports: Back Pain, Joint Tenderness - Left hip tenderness, - - Patient complains of left hip pain and inability to bear weight on her left hip. Denies: Arm Pain, Foot Pain, Hand Pain, Joint Pain, Joint stiffness, Joint swelling, Leg Pain Skin: Denies: Dryness, Jaundice, Pruritis, Rash Neurological: Denies: Blurred vision, Double vision, Change in Speech, Slurred speech, Difficulty swallowing, Focal weakness, Headaches, Incoordination, Numbness, Tingling Psychiatric: Denies: Anxiety, Depression, Homicidal Ideations, Suicidal Ideations Endocrine: Denies: Change in Body Habitus, Heat/ Cold Intolerance, Polydipsia, Polyuria Hematologic/ Lymphatic: Denies: Adenopathy, Anemia, Easy Bruising, Easy Bleeding, Petechiae, Purpura VTE Information - Inpt Only VTE Present on Admission: No VTE Mechan Device Prophylaxis: None VTE Pharm Prophylaxis ordered?: Yes Patient Problems: Active and Suspected Problems (Last Reviewed 06/28/17 @ 12:57 by Coretta Pino) Closed intertrochanteric fracture of left hip (Acute) Fall from slip, trip, or stumble (Acute) Left hip pain (Acute) - Physical Exam General: Alert, Oriented x3, Cooperative, No apparent distress, Well developed, Well nourished HEENT: Atraumatic, PERRLA, EOMI, Normocephalic Oral: Moist Mucosa Neck: Supple, No JVD, Negative Carotid Bruits, No Nuchal Rigidity, Trachea Midline, Thyroid Normal Size and Texture Lungs: Clear to auscultation, Normal air movement, No rhonchi, No wheeze, No rales Cardiovascular: Regular rate, Regular Rhythm, Normal S1, Normal S2, No murmurs, No Ectopic Activity, PMI Normal, No rub noted, No Gallop Abdomen: Bowel Sounds Present, Soft, Non Tender, Non-Distended Extremities: No clubbing, No cyanosis, No edema, Capillary Refill Less than 3 Seconds Skin: No rashes, No breakdown Musculoskeletal: Tenderness - There is tenderness to palpation of the left hip area, - - There is severe pain to any movement of the left hip including flexion extension and abduction. Neurological: Cranial nerves II-XII grossly intact, Neuro grossly intact, Sensory exam intact to light touch and pain Psych/Mental Status: Normal Affect, Appropriate, Alert and oriented to time, place, person, mood and affect Vital Signs Temp Pulse Resp BP Pulse Ox 97.7 F L 105 H 16 174/96 H 98 03/08/19 15:38 03/08/19 15:38 03/08/19 15:38 03/08/19 15:38 03/08/19 15:38 Oxygen Flow Rate (L/min) 2 Oxygen Delivery Method Nasal Cannula Weight: 83.007 kg Body Mass Index (BMI) 32.4 Finger Stick Blood Glucose 123 Intake and Output for Last 24 Hours 03/06/19 03/07/19 03/08/19 23:59 23:59 23:59 Intake Total 250 / 250 Output Total 1500 / 1500 Balance -1250 / -1250 Laboratory Tests Past 24 Hrs 03/08/19 03/08/19 12:45 12:45 WBC 14.8 H RBC 5.53 H Hgb 16.4 H Hct 48.7 H MCV 88.1 MCH 29.7 MCHC 33.7 RDW Std Deviation 44.4 H RDW Coeff of Gael 13.8 Plt Count 174 MPV 10.2 Immature Gran % (Auto) 1.000 H Neut % (Auto) 79.7 H Lymph % (Auto) 13.9 L [place] % (Auto) 4.7 Eos % (Auto) 0.5 Baso % (Auto) 0.2 Absolute Neuts (auto) 11.8 H Absolute Lymphs (auto) 2.05 Nucleated RBC % 0 Sodium 141 Potassium 4.2 Chloride 107 Carbon Dioxide 25.0 Anion Gap 9 BUN 13 Creatinine 0.81 Estim Creat Clear Calc 63.39 Est GFR (MDRD) Af Amer 94 Est GFR (MDRD) Non-Af 77 BUN/Creatinine Ratio 16.0 Glucose 157 H Calcium 9.2 POC Glucose 03/08/19 15:46 POC Glucose 154 H Assessment/Plan All Active Problems (Last Reviewed 06/28/17 @ 12:57 by Coretta Pino) Closed intertrochanteric fracture of left hip (Acute) Fall from slip, trip, or stumble (Acute) Left hip pain (Acute) #1 acute left intertrochanteric fracture secondary to fall-suspect osteoporosis has the underlying cause-patient will be admitted to [facility], she will be seen in consultation by orthopedic surgery, patient appears stable for surgery at this time, I feel she is at moderate risk for any complications from surgery due to her smoking history and history of CVA. #2 type 2 diabetes-blood sugars will be monitored, insulin will be administered #3 schizophrenia-patient will remain on her current medications #4 bipolar disorder-patient will remain on her current medications #5 probable COPD-patient states that she does not need a nicotine patch, she states she smokes approximately 1/2 a pack of cigarettes per day. #6 hyperlipidemia-patient will remain on her statin #7 chronic low back pain secondary to suspected degenerative disc disease lumbar spine-patient is currently on a Butrans patch, I have elected to take the patient off her patch at this time, she will receive OxyContin and IV morphine as needed for pain. #8 chronic anxiety disorder Code Visit Inpatient E&M: 62243 Init Hosp L3
[2019-03-08] MEDS: Famotidine 20 MG Tablet PO (21:33)
[2019-03-08] MEDS: Atorvastatin Calcium 80 MG Tablet PO (21:34)
[2019-03-08] MEDS: Tolterodine Tartrate 2 MG CAP.SA PO (21:35)
[2019-03-08] MEDS: OLANZapine 10 MG Tablet PO (21:36)
[2019-03-08] MEDS: Heparin Injection (Vial) 5,000 UNIT/ML VIAL 5000 UNIT SC (21:36)
[2019-03-08] MEDS: Pregabalin 75 MG Capsule 150 MG PO (21:39)
[2019-03-08 23:36] LABS: Bedside Glucose 172 mg/dL (70-110)
[2019-03-09] VITALS (7 sets, daily range): BP systolic 145–158; BP diastolic 79–91; PULSE 97–107; RESP 16–20; TEMP 36.9–37.1; O2SAT 90–96
[2019-03-09] MEDS: LORazepam 1 MG Tablet PO ×4 (00:15→17:05)
[2019-03-09] MEDS: Morphine 4 MG/ML Syringe IV ×3 (00:25→10:34)
[2019-03-09] MEDS: 0.9% Normal Saline 1,000 ML 100 ML IV ×3 (01:51→20:29)
[2019-03-09] MEDS: oxyCODONE 5 MG Tablet 10 MG PO ×3 (03:55→13:17)
[2019-03-09] MEDS: OLANZapine 2.5 MG Tablet 5 MG PO ×2 (06:14→13:54)
[2019-03-09 06:37] LABS: Absolute Neutrophil Count 7.2 X10^3/uL (2.0-7.7); Basophil# 0.03 X10^3/uL; Basophil% 0.3 % (0-1); Eosinophil# 0.05 X10^3/uL; Eosinophils% 0.5 % (0-5); Hematocrit 47.5 % (37-47); Hemoglobin 15.6 g/dL (12.0-15.0); Lymphocyte % 20.8 % (19-41); Mean Corp Hgb Conc 32.8 g/dL (32-36); Mean Corpuscular Hgb 29.3 pg (27.0-32.0); Mean Corpuscular Volume 89.3 fL (81-99); Mean Platelet Vol. 9.9 fl (6.2-12.0); Monocyte# 1.02 X10^3/uL; Monocyte% 9.6 % (0-10); NRBC Flagged by Analyzer 0 % (0-5); Neutrophil # 7.23 X10^3/uL (2.7-7.7); Neutrophil % 68.3 % (47-70); Platelet Count 154 K/mm3 (150-450); RBC Distribution Width CV 13.8 % (11.6-14.6); RBC Distribution Width SD 44.6 fl (35.1-43.9); Red Blood Count 5.32 M/mm3 (4.2-5.4); White Blood Count 10.6 K/mm3 (4.4-11.0)
[2019-03-09 06:47] LABS: Partial Thromboplast Time 29.9 Seconds (24.1-36.2)
[2019-03-09] MEDS: Albuterol 2.5 MG/3 ML VIAL.NEB. INHALATION ×3 (06:56→19:00)
[2019-03-09 07:16] LABS: Bedside Glucose 142 mg/dL (70-110)
--- NOTE | 2019-03-09 08:46 | RAD_ITS ---
STUDY: X-RAY - LEFT FEMUR REASON FOR STUDY: Female, 58 years old. Fall yesterday, IT fracture TECHNIQUE: AP and lateral view(s) of the femur. COMPARISON: Yesterday FINDINGS: There is a fracture of the intratrochanteric proximal femur with a longitudinal component extending into the proximal femoral diaphysis (6 cm below the lesser trochanter. Normal visualized soft tissue structure. There are atherosclerotic vascular calcifications. RAD/Femur Min 2 Views IMPRESSION: Right intratrochanteric fracture with longitudinal extension into the proximal femoral diaphysis, as above. Electronically Signed: Kaiser Ruano MD (Brooks) at 10:43 EDT , Service support ,
[2019-03-09] MEDS: Ferrous Sulfate 325 MG Tablet PO ×2 (09:06→17:03)
[2019-03-09] MEDS: DULoxetine Hcl 60 MG Capsule 120 MG PO (09:06)
[2019-03-09] MEDS: Famotidine 20 MG Tablet PO ×2 (09:06→20:29)
[2019-03-09] MEDS: Pregabalin 75 MG Capsule 150 MG PO ×2 (09:06→20:28)
[2019-03-09] MEDS: amLODIPine 5 MG Tablet PO (09:06)
[2019-03-09] MEDS: metFORMIN HCl 1,000 MG Tablet 1000 MG PO ×2 (09:07→17:03)
[2019-03-09] MEDS: Empagliflozin 25 MG Tablet PO (09:08)
[2019-03-09] MEDS: Heparin Injection (Vial) 5,000 UNIT/ML VIAL 5000 UNIT SC ×2 (09:10→20:32)
[2019-03-09] MEDS: 0.9% NaCl Peripheral Flush Adult/Peds IV ×2 (09:10→15:46)
[2019-03-09] MEDS: Insulin Lispro 100 UNIT/ML INSULN.PEN SC ×2 (11:16→20:40)
--- NOTE | 2019-03-09 11:29 | CASEMGMT ---
Social Work Note [facility] CLARENCE placed a call to [facility] and spoke with Angelia. Angelia states pt is correction resident and will likely need skilled at discharge due to hip fracture. Angelia states pt will need pre-cert to return. CLARENCE updated Angelia that surgery hasn't been scheduled yet. CLARENCE faxed updated clinicals to [facility]. CLARENCE faxed updated clinicals to [facility]. CLARENCE met with pt and introduced self and role at [facility]. Pt is alert and orientated x4. [facility] and plan is to return. 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
[2019-03-09 11:46] LABS: Bedside Glucose 204 mg/dL (70-110)
--- NOTE | 2019-03-09 12:10 | PCM.CONS.GEN ---
Problem List (1) Closed intertrochanteric fracture of left hip Status: Acute Qualifiers: Encounter type: initial encounter Fracture alignment: displaced Qualified Code(s): S72.142A - Displaced intertrochanteric fracture of left femur, initial encounter for closed fracture Comment: minimally displaced and impacted intertrochanteric fracture with sub troch extension (2) Fall from slip, trip, or stumble Status: Acute Qualifiers: Encounter type: initial encounter Qualified Code(s): W01.0XXA - Fall on same level from slipping, tripping and stumbling without subsequent striking against object, initial encounter Reason for Consult Date of Consultation: 03/09/19 Reason for Consultation: Left hip intertrochanteric fracture History of Present Illness: The patient is a 58 year old F who slipped on while walking down to the cafeteria at her senior living. She fell to the ground landing against a nearby door frame. She states that she had immediate pain and was unable to get up off the ground. Squad was called and patient was transported to the emergency department where X-rays revealed a non-displaced intertrochanteric fracture with a longitudinal split of the proximal femur. Patient states that she was unable to move the knee or foot initially but states that she is now able to move the foot and ankle without pain. She denies any numbness/tingling of the leg, calf pains, evident swelling, or skin changes. ] Past Medical History Past Medical History (Chronic Problems): Chronic Problems (Last Reviewed 06/28/17 @ 12:57 by Coretta Pino) Anxiety (Chronic) Iron deficiency (Chronic) Bipolar disorder (Chronic) CVA (cerebral vascular accident) (Chronic) COPD (chronic obstructive pulmonary disease) (Chronic) History of stroke (Chronic) Diabetes mellitus (Chronic) Hyperlipidemia (Chronic) Esophageal reflux (Chronic) History of tobacco use (Chronic) Schizophrenia (Chronic) Chronic pain (Chronic) Medical History: Medical History (Last Reviewed 06/28/17 @ 12:57 by Coretta Pino) Cerebral vascular disease I67.9 Hypertension I10 Insomnia G47.00 Mild asthma J45.998 Neuralgia and neuritis M79.2 Spondylosis M47.9 Allergies Iodinated Contrast Media [Iodinated Contrast Media - IV Dye] Allergy (Verified 03/08/19 14:28) Hives amoxicillin trihydrate [From Augmentin] Adverse Reaction (Verified 03/08/19 14:28) Itching hydrocodone [From Vicodin] Adverse Reaction (Verified 03/08/19 14:28) Unknown potassium clavulanate [From Augmentin] Adverse Reaction (Verified 03/08/19 14:28) Itching prednisone Adverse Reaction (Verified 03/08/19 14:28) Unknown shellfish derived Adverse Reaction (Verified 03/08/19 14:28) Itching Home Medications: Ambulatory Orders Medication Instructions Recorded Atorvastatin Calcium [Lipitor] 80 mg PO QHS 07/25/16 Clopidogrel Bisulfate [Plavix] 75 mg PO DAILY 07/25/16 Dulaglutide [Trulicity] 0.75 mg SQ FR 07/25/16 traZODone [Desyrel] 100 mg PO QHS PRN 01/23/18 Empagliflozin [Jardiance] 25 mg PO DAILY 06/19/18 Guaifenesin [Mucinex] 600 mg PO DAILY 06/19/18 Olanzapine [Zyprexa] 10 mg PO QHS 06/19/18 Oxybutynin Chloride [Ditropan Xl] 10 mg PO QHS 06/19/18 Pregabalin 150 mg PO BID 06/19/18 metFORMIN HCl [Glucophage] 1,000 mg PO BID 06/19/18 Amlodipine [Norvasc] 5 mg PO DAILY 03/08/19 Buprenorphine [Butrans 15 Mcg/Hr 1 ea TD QWEEK 03/08/19 Patch] CycloSPORINE Ophthalmic [Restasis 1 drp EACH EYE DAILY 03/08/19 Ophthalmic] Duloxetine Hcl [Cymbalta] 120 mg PO DAILY 03/08/19 Epi Pen (for allergic rxn) 0.3 mg PRN PRN 03/08/19 Famotidine [Pepcid] 20 mg PO BID 03/08/19 Ferrous Sulfate 325 mg PO BIDCM 03/08/19 Formoterol Fumarate [Perforomist] 20 mcg INHALATION BID 03/08/19 Ibuprofen 400 mg PO Q8H PRN PRN 03/08/19 Insulin Degludec [Tresiba 65 unit SQ DAILY 03/08/19 Flextouch U-100] Lorazepam [Ativan] 1 mg PO Q6H 03/08/19 Olanzapine [Zyprexa] 5 mg PO BID 03/08/19 Ondansetron HCl [Zofran] 4 mg PO Q6H PRN PRN 03/08/19 Oxycodone HCl/Acetaminophen 1 tab PO 4X/DAY 03/08/19 [Oxycodone-Acetaminophen 10-325] Prazosin HCl [Minipress] 1 mg PO QHS 03/08/19 Surgical History: Surgical History (Last Reviewed 06/28/17 @ 12:57 by Coretta Pino) S/P right rotator cuff repair Z98.890 11/27/16 Surgical History: appendectomy, cholecystectomy, hysterectomy, - - Right shoulder surgery Psychiatric History: Anxiety, Bipolar, Schizophrenia SOCIAL RESEARCH ASSISTANT History: No pertinent SOCIAL RESEARCH ASSISTANT history Lives: Shelter Smoking Status: Current every day smoker Tobacco Use: Cigarettes Alcohol: None Drugs: None - *Family History Maternal History Items: - - Patient adopted, denies known maternal medical history. Paternal History Items: - - Patient adopted, denies known paternal medical history. Patient Problems: Active and Suspected Problems (Last Reviewed 06/28/17 @ 12:57 by Coretta Pino) Closed intertrochanteric fracture of left hip (Acute) minimally displaced and impacted intertrochanteric fracture with sub troch extension Fall from slip, trip, or stumble (Acute) Left hip pain (Acute) - Physical Exam General: Alert, Oriented x3, Cooperative, No apparent distress, Well developed, Well nourished Extremities: No Calf Tenderness, Peripheral Pulses Normal Skin: No rashes, No breakdown Musculoskeletal: Tenderness - left hip, - - patient lying in bed with leg slightly rotated externally. She does appear to have some shortening of the extremity as well. Neurological: Sensory exam intact to light touch and pain, - - intact motor function of the foot/ankle/toes. She is able to flex the knee very slightly Psych/Mental Status: Normal Affect Vital Signs Temp Pulse Resp BP Pulse Ox 98.6 F 102 H 18 155/87 H 94 03/09/19 09:03 03/09/19 09:03 03/09/19 09:03 03/09/19 09:03 03/09/19 09:03 Oxygen Flow Rate (L/min) 2 Oxygen Delivery Method Nasal Cannula Weight: 183 lb Body Mass Index (BMI) 32.4 Finger Stick Blood Glucose 123 Intake and Output for Last 24 Hours 03/07/19 03/08/19 03/09/19 23:59 23:59 23:59 Intake Total 250 / 250 1835.01 / 1835.01 Output Total 1500 / 2700 1200 / 1200 Balance -1250 / -2450 635.01 / 635.01 Laboratory Tests Past 24 Hrs 03/08/19 03/08/19 03/08/19 12:45 12:45 12:45 WBC 14.8 H RBC 5.53 H Hgb 16.4 H Hct 48.7 H MCV 88.1 MCH 29.7 MCHC 33.7 RDW Std Deviation 44.4 H RDW Coeff of Gael 13.8 Plt Count 174 MPV 10.2 Immature Gran % (Auto) 1.000 H Neut % (Auto) 79.7 H Lymph % (Auto) 13.9 L [place] % (Auto) 4.7 Eos % (Auto) 0.5 Baso % (Auto) 0.2 Absolute Neuts (auto) 11.8 H Absolute Lymphs (auto) 2.05 Nucleated RBC % 0 APTT Sodium 141 Potassium 4.2 Chloride 107 Carbon Dioxide 25.0 Anion Gap 9 BUN 13 Creatinine 0.81 Estim Creat Clear Calc 63.39 Est GFR (MDRD) Af Amer 94 Est GFR (MDRD) Non-Af 77 BUN/Creatinine Ratio 16.0 Glucose 157 H Hemoglobin A1c Calcium 9.2 Blood Type A NEGATIVE Antibody Screen NEGATIVE 03/09/19 03/09/19 03/09/19 06:13 06:13 06:13 WBC 10.6 RBC 5.32 Hgb 15.6 H Hct 47.5 H MCV 89.3 MCH 29.3 MCHC 32.8 RDW Std Deviation 44.6 H RDW Coeff of Gael 13.8 Plt Count 154 MPV 9.9 Immature Gran % (Auto) 0.500 Neut % (Auto) 68.3 Lymph % (Auto) 20.8 [place] % (Auto) 9.6 Eos % (Auto) 0.5 Baso % (Auto) 0.3 Absolute Neuts (auto) 7.2 Absolute Lymphs (auto) 2.20 Nucleated RBC % 0 APTT 29.9 Sodium Potassium Chloride Carbon Dioxide Anion Gap BUN Creatinine Estim Creat Clear Calc Est GFR (MDRD) Af Amer Est GFR (MDRD) Non-Af BUN/Creatinine Ratio Glucose Hemoglobin A1c 8.0 H Calcium Blood Type Antibody Screen POC Glucose 03/09/19 03/09/1919 11:14 06:59 21:42 POC Glucose 204 H 142 H 172 H 03/08/19 15:46 POC Glucose 154 H Assessment/Plan All Active Problems (Last Reviewed 06/28/17 @ 12:57 by Coretta Pino) Closed intertrochanteric fracture of left hip (Acute) Fall from slip, trip, or stumble (Acute) Left hip pain (Acute) Left hip minimally displaced, impacted intertrochanteric fracture with sub troch extension Patient does have past medical history significant for HTN, diabetes, hyperlipidemia and previous CVA. We discussed these with the patient and their role in complication risks including but not limited to infection and non-healing. We also discussed her smoking and its role in complication risks as well. (recommended smoking cessation Patient has intact motor function of the foot/ankle/toes Normal sensation to light touch through the extremity Normal distal pedal pulses Plan is to proceed with surgical intervention with Long TFN nail of the left hip. We discussed the anatomy as well as the fracture with the patient and the risk with the longitudinal split. Patient to be off the plavix and should hold the heparin after midnight tonight. As long as medically cleared will proceed tomorrow.
--- NOTE | 2019-03-09 15:16 | NURSING ---
continue to await traction boot for bucks traction to be applied
[2019-03-09] MEDS: morphine 10 MG/ML Syringe 6 MG IV ×2 (15:46→22:05)
--- NOTE | 2019-03-09 16:15 | NURSING ---
standard size bucks traction boot applied- nothing on boot or bag indicating size.
[2019-03-09 17:11] LABS: Bedside Glucose 137 mg/dL (70-110)
[2019-03-09] MEDS: oxyCODONE 5 MG Tablet 15 MG PO (19:21)
[2019-03-09] MEDS: Atorvastatin Calcium 80 MG Tablet PO (20:28)
[2019-03-09] MEDS: OLANZapine 10 MG Tablet PO (20:28)
[2019-03-09] MEDS: Tolterodine Tartrate 2 MG CAP.SA PO (20:29)
[2019-03-09 20:51] LABS: Bedside Glucose 194 mg/dL (70-110)
[2019-03-10] VITALS (16 sets, daily range): BP systolic 125–170; BP diastolic 69–89; PULSE 99–113; RESP 16–20; TEMP 36.3–37.7; O2SAT 84–98; BMI 32.4
[2019-03-10] MEDS: LORazepam 1 MG Tablet PO ×2 (00:11→17:18)
[2019-03-10] MEDS: oxyCODONE 5 MG Tablet 15 MG PO (00:12)
[2019-03-10] MEDS: 0.9% Normal Saline 1,000 ML 100 ML IV (05:36)
[2019-03-10 06:14] LABS: International Normalized Ratio 1.1; Prothrombin Time (Protime)PT. 14.1 SECONDS (11.7-14.9)
[2019-03-10 06:19] LABS: Anion Gap 7 (5-15); BUN 12 mg/dL (7-18); BUN/Creat Ratio 19.9 RATIO (10-20); Calcium,Total 8.2 mg/dL (8.5-10.1); Chloride 111 mmol/L (98-107); EST Glomerular Filtration Rate 109 mL/min (>60); Est Glom Filt Rate - Afr Amer 131 mL/min (>60); Estimated Creatinine Clearance 85.57 ml/min; Glucose 137 mg/dL (74-106); Potassium 3.8 mmol/L (3.5-5.1); Sodium Level 143 mmol/L (136-145)
[2019-03-10 06:33] LABS: Absolute Lymphocyte Count 2.21 X10^3/uL (0.83-4.51); Absolute Neutrophil Count 9.6 X10^3/uL (2.0-7.7); Basophil# 0.03 X10^3/uL; Basophil% 0.2 % (0-1); Eosinophil# 0.09 X10^3/uL; Eosinophils% 0.7 % (0-5); Hemoglobin 14.2 g/dL (12.0-15.0); Lymphocyte # 2.21 X10^3/ul (4.0); Lymphocyte % 16.9 % (19-41); Mean Corp Hgb Conc 32.3 g/dL (32-36); Mean Corpuscular Hgb 29.2 pg (27.0-32.0); Mean Corpuscular Volume 90.5 fL (81-99); Mean Platelet Vol. 10.1 fl (6.2-12.0); Monocyte# 1.09 X10^3/uL; Monocyte% 8.4 % (0-10); NRBC Flagged by Analyzer 0 % (0-5); Neutrophil # 9.56 X10^3/uL (2.7-7.7); Neutrophil % 73.3 % (47-70); Platelet Count 155 K/mm3 (150-450); RBC Distribution Width CV 14.1 % (11.6-14.6); RBC Distribution Width SD 47.2 fl (35.1-43.9); Red Blood Count 4.86 M/mm3 (4.2-5.4)
[2019-03-10] MEDS: Albuterol 2.5 MG/3 ML VIAL.NEB. INHALATION ×2 (07:13→18:51)
[2019-03-10] MEDS: morphine 10 MG/ML Syringe 6 MG IV (08:01)
[2019-03-10 08:21] LABS: Bedside Glucose 130 mg/dL (70-110)
[2019-03-10] MEDS: Lactated Ringers 1,000 ML 100 ML IV ×2 (09:46→12:15)
--- NOTE | 2019-03-10 10:57 | CASEMGMT ---
Addendum entered by Dary Farrell 03/10/19 11:05: SW received call from RN at [facility] and pt is on the Waiver program. [phone] Original Note: Social Work Note Pt is having surgery today. SW reviewed insurances and now Medicare is showing primary and Caresource/Medicaid is showing secondary. Yesterday pt's [employer] was showing primary. SW placed a call to [facility] and spoke with Dahiana. SW updated Dahiana that pt is having surgery today and asked about pt's insurance. SW was transferred to [place]. [place] states that pt does have Medicare primary and [employer] secondary. Plan: Discharge to [facility]. Pt needs three midnight stay, which pt will get tonight, to return to [facility] skilled Dary Farrell RENT AND HOUSING INVESTIGATOR, GROUND CREW LINESMAN
[2019-03-10] MEDS: Vancomycin IV 1,000 MG/200 ML BAG 200 MG IV ×2 (11:00→22:08)
--- NOTE | 2019-03-10 11:05 | RAD_ITS ---
STUDY: X-RAY - PELVIS AND LEFT HIP REASON FOR EXAM: Female, 58 years old. Intertrochanteric fixation. TECHNIQUE: 4 intraoperative views of the pelvis and hip. COMPARISON: None. FINDINGS: Intraoperative imaging provided for open reduction internal fixation of the left intertrochanteric fracture. There is good alignment. RAD/Hip Min 2 Views (Portable) IMPRESSION: Intraoperative imaging for ORIF of the left intertrochanteric fracture. Electronically Signed: Armando Qureshi, at 14:22 EDT , Service support ,
--- NOTE | 2019-03-10 11:12 | PCA ---
pt off floor
--- NOTE | 2019-03-10 12:51 | PCM.OPRPT ---
Report of Operation Date of Procedure: 03/10/19 Description of Surgical Findings:: Preoperative diagnosis: Left hip intertrochanteric femur fracture with subtrochanteric extension Postoperative diagnosis: Same Procedure: Cephalo-medullary fixation left hip Implants: Synthes long nail 11 mmx 360, 95 mm helical blade 48 mm screw Anesthesia: General EBL: 50 Complications: None Condition: Stable to PACU Indication for procedure: 58-year-old female patient with ground-level fall sustaining injury to hip. fracture demonstrated intertrochanteric femur fracture with subtrochanteric extension, risk benefits and alternatives were reviewed including risk of bleeding infection nerve, artery, bone, tissue damage, blood clot need for further surgery and continued pain. Procedure: Patient met in the preoperative holding area once again the operative extremity was identified by both patient and physician and was marked. Patient was met by anesthesia and IV was started she was brought back to the to the operating room anesthesia was started. She was then positioned on the fracture table all bony prominences were well-padded. She was then positioned with adduction internal rotation and traction and fluoroscopy was brought in to ensure that an adequate reduction could be performed. Patient was then prepped and draped in usual sterile fashion and timeout was called to ensure the proper patient procedure and extremity were being contemplated. Fluoroscopy was used to laurita the tip of the greater trochanter and a 3 fingerbreadth incision was made 2 finger breaths proximal to the tip of the greater trochanter. Was carried carried down through the skin and subcutaneous tissue as well as the gluteal fascia. A guide pin was then inserted through the tip of the greater trochanter directed towards the level of lesser trochanter this was checked in both AP and lateral projections. An opening reamer was performed. A guide pin was bent and placed down the femoral canal to the level of the superior patella then measured this and placed the corresponding length nail after flexible reamers were used to achieve cortical chatter and achieving 1.5 mm greater than the nail was chosen . following this was the insertion of the nail the appropriate height jig was used and a triple trocar sleeve was advanced to the skin and a stab incision was made at the trocar was inserted to the level of the bone and a guidepin was placed into the femoral neck and head checked on both AP and lateral projections. This was then measured and appropriately sized helical blade was inserted the nail was locked proximally to allow dynamic compression the fracture was compressed and a locking screw was placed distally using perfect fond du lac technique. This was then drilled and measured under fluoroscopy and the appropriate size screw was inserted. Final AP and lateral projections were saved to the PACS system of the entire construct. the wounds were thoroughly irrigated the fascia was closed with #1 [id number] Vicryls followed by 2-0 Vicryl in the subcutaneous tissues followed by paz in the skin. 0.5% Marcaine with epinephrine was injected into the subcutaneous tissues dressing was applied form of Xeroform 4 x 4 ABD and Ioban tape. Patient tolerated procedure well there is no intraoperative complications she was brought back to the PACU in stable condition.
[2019-03-10] MEDS: Bupiv/Epi 0.5% Mpf 30 ML Vial (12:53)
[2019-03-10 13:46] LABS: Bedside Glucose 126 mg/dL (70-110)
[2019-03-10] MEDS: Ketorolac 30 MG/ML Syringe IV (17:17)
[2019-03-10] MEDS: OLANZapine 2.5 MG Tablet 5 MG PO (17:20)
[2019-03-10] MEDS: DULoxetine Hcl 60 MG Capsule 120 MG PO (17:20)
[2019-03-10] MEDS: Ferrous Sulfate 325 MG Tablet PO (17:21)
[2019-03-10] MEDS: amLODIPine 5 MG Tablet PO (17:21)
[2019-03-10] MEDS: Famotidine 20 MG Tablet PO ×2 (17:21→22:03)
[2019-03-10] MEDS: Pregabalin 75 MG Capsule 150 MG PO ×2 (17:27→22:08)
[2019-03-10] MEDS: Acetaminophen 500 MG Tablet 1000 MG PO ×2 (17:27→22:05)
[2019-03-10] MEDS: Lactated Ringers 1,000 ML 125 ML IV (17:29)
[2019-03-10 17:36] LABS: Bedside Glucose 108 mg/dL (70-110)
--- NOTE | 2019-03-10 18:26 | PN_ITS ---
Patient Problems: Active and Suspected Problems (Last Reviewed 06/28/17 @ 12:57 by Coretta Pino) Closed intertrochanteric fracture of left hip (Acute) minimally displaced and impacted intertrochanteric fracture with sub troch extension Fall from slip, trip, or stumble (Acute) Left hip pain (Acute) Subjective: Patient was seen and examined today, she underwent an insertion of a cephalic medullary nail in the left hip for repair of her left hip fracture. Patient has no complaints of any chest pain or shortness of breath at this time, the patient appears comfortable and not in any pain. - Physical Exam General: Alert, Oriented x3, Cooperative, No apparent distress, Well developed HEENT: Atraumatic, PERRLA, EOMI, Normocephalic Oral: Moist Mucosa Neck: Supple, Trachea Midline, Thyroid Normal Size and Texture Lungs: Clear to auscultation, Normal air movement, No rhonchi, No wheeze, No rales Cardiovascular: Regular rate, Regular Rhythm, Normal S1, Normal S2, No murmurs, No Ectopic Activity, PMI Normal, No Gallop Abdomen: Bowel Sounds Present, Soft, Non Tender, Non-Distended, No hernias noted Extremities: No clubbing, No cyanosis, No edema, Capillary Refill Less than 3 Seconds Skin: No rashes Neurological: Cranial nerves II-XII grossly intact, Neuro grossly intact, Sensory exam intact to light touch and pain, Coordination normal Psych/Mental Status: Normal Affect, Appropriate, Alert and oriented to time, place, person, mood and affect Vital Signs Temp Pulse Resp BP Pulse Ox 99.6 F H 109 H 18 159/89 H 96 03/10/19 17:33 03/10/19 17:33 03/10/19 17:33 03/10/19 17:33 03/10/19 17:33 Oxygen Flow Rate (L/min) 3 Oxygen Delivery Method Nasal Cannula Weight: 83 kg Body Mass Index (BMI) 32.4 Finger Stick Blood Glucose 126 Intake and Output for Last 24 Hours 03/08/19 03/09/19 03/10/19 23:59 23:59 23:59 Intake Total 250 / 250 3590.01 / 3590.01 3461.67 / 3461.67 Output Total 1500 / 2700 3075 / 3075 2250 / 2250 Balance -1250 / -2450 515.01 / 515.01 1211.67 / 1211.67 Laboratory Tests Past 24 Hrs 03/10/19 03/10/19 03/10/19 05:37 05:37 05:37 WBC 13.0 H RBC 4.86 Hgb 14.2 Hct 44.0 MCV 90.5 MCH 29.2 MCHC 32.3 RDW Std Deviation 47.2 H RDW Coeff of Gael 14.1 Plt Count 155 MPV 10.1 Immature Gran % (Auto) 0.500 Neut % (Auto) 73.3 H Lymph % (Auto) 16.9 L [place] % (Auto) 8.4 Eos % (Auto) 0.7 Baso % (Auto) 0.2 Absolute Neuts (auto) 9.6 H Absolute Lymphs (auto) 2.21 Nucleated RBC % 0 PT 14.1 INR 1.1 Sodium 143 Potassium 3.8 Chloride 111 H Carbon Dioxide 25.0 Anion Gap 7 BUN 12 Creatinine 0.60 Estim Creat Clear Calc 85.57 Est GFR (MDRD) Af Amer 131 Est GFR (MDRD) Non-Af 109 BUN/Creatinine Ratio 19.9 Glucose 137 H Calcium 8.2 L POC Glucose 03/10/19 03/10/19 03/10/19 17:16 13:41 08:07 POC Glucose 108 126 H 130 H 03/09/19 20:39 POC Glucose 194 H Medical Necessity - Tobacco Use Smoking Status: Current every day smoker Tobacco Use: Cigarettes Assessment/Plan All Active Problems (Last Reviewed 06/28/17 @ 12:57 by Coretta Pino) Closed intertrochanteric fracture of left hip (Acute) Fall from slip, trip, or stumble (Acute) Left hip pain (Acute) #1 acute left intertrochanteric fracture secondary to fall-suspect osteoporosis as the underlying cause-postop day 0 insertion of intramedullary nail-patient will continue PT and OT, plan is for the patient to return to [facility] home #2 type 2 diabetes-blood sugars will be monitored, insulin will be administered #3 schizophrenia-patient will remain on her current medications #4 bipolar disorder-patient will remain on her current medications #5 probable COPD-patient states that she does not need a nicotine patch, she states she smokes approximately 1/2 a pack of cigarettes per day. #6 hyperlipidemia-patient will remain on her statin #7 chronic low back pain secondary to suspected degenerative disc disease lumbar spine #8 chronic anxiety disorder Code Visit Inpatient E&M: 30851 Subs Hosp L2
[2019-03-10] MEDS: Tolterodine Tartrate 2 MG CAP.SA PO (22:03)
[2019-03-10] MEDS: Atorvastatin Calcium 80 MG Tablet PO (22:03)
[2019-03-10] MEDS: APIXABAN 2.5 MG TABLET PO (22:04)
[2019-03-10] MEDS: OLANZapine 10 MG Tablet PO (22:04)
[2019-03-10] MEDS: Senna/Docusate Sodium 1 Tablet 2 TABLET PO (22:05)
[2019-03-10] MEDS: Insulin Lispro 100 UNIT/ML INSULN.PEN SC (22:27)
[2019-03-10 22:41] LABS: Bedside Glucose 214 mg/dL (70-110)
[2019-03-11 01:00] VITALS: BP 144/77; PULSE 94; RESP 16; TEMP 37; O2SAT 98
[2019-03-11] MEDS: LORazepam 1 MG Tablet PO ×2 (01:02→11:53)
[2019-03-11 05:12] VITALS: BP 136/71; PULSE 90; RESP 16; TEMP 36.6; O2SAT 97
[2019-03-11 06:03] LABS: Hematocrit 36.8 % (37-47); Hemoglobin 11.7 g/dL (12.0-15.0); Mean Corp Hgb Conc 31.8 g/dL (32-36); Mean Corpuscular Hgb 28.7 pg (27.0-32.0); Mean Corpuscular Volume 90.4 fL (81-99); Mean Platelet Vol. 10.1 fl (6.2-12.0); Platelet Count 139 K/mm3 (150-450); RBC Distribution Width CV 13.9 % (11.6-14.6); RBC Distribution Width SD 46.2 fl (35.1-43.9); Red Blood Count 4.07 M/mm3 (4.2-5.4); White Blood Count 10.7 K/mm3 (4.4-11.0)
[2019-03-11] MEDS: Acetaminophen 500 MG Tablet 1000 MG PO ×2 (06:06→14:41)
[2019-03-11] MEDS: OLANZapine 2.5 MG Tablet 5 MG PO (06:07)
[2019-03-11 06:08] LABS: Anion Gap 7 (5-15); BUN 11 mg/dL (7-18); BUN/Creat Ratio 21.6 RATIO (10-20); Calcium,Total 8.4 mg/dL (8.5-10.1); Chloride 112 mmol/L (98-107); Creatinine, Serum 0.51 mg/dL (0.55-1.02); EST Glomerular Filtration Rate 132 mL/min (>60); Est Glom Filt Rate - Afr Amer 160 mL/min (>60); Estimated Creatinine Clearance 100.68 ml/min; Glucose 191 mg/dL (74-106); Potassium 3.9 mmol/L (3.5-5.1); Sodium Level 145 mmol/L (136-145)
[2019-03-11] MEDS: Insulin Lispro 100 UNIT/ML INSULN.PEN SC ×3 (06:11→16:39)
[2019-03-11] MEDS: Ketorolac 30 MG/ML Syringe IV ×2 (06:15→12:36)
[2019-03-11 06:51] LABS: Bedside Glucose 169 mg/dL (70-110)
[2019-03-11 06:52] VITALS: PULSE 102; RESP 20; O2SAT 92
[2019-03-11] MEDS: Albuterol 2.5 MG/3 ML VIAL.NEB. INHALATION ×2 (06:52→13:35)
[2019-03-11 08:12] VITALS: BP 110/66; PULSE 95; RESP 18; TEMP 36.8; O2SAT 98
[2019-03-11] MEDS: Ferrous Sulfate 325 MG Tablet PO ×2 (08:30→16:36)
[2019-03-11] MEDS: metFORMIN HCl 1,000 MG Tablet 1000 MG PO ×2 (08:31→16:36)
[2019-03-11] MEDS: DULoxetine Hcl 60 MG Capsule 120 MG PO (08:31)
[2019-03-11] MEDS: Famotidine 20 MG Tablet PO (08:32)
[2019-03-11] MEDS: Empagliflozin 25 MG Tablet PO (08:32)
[2019-03-11] MEDS: amLODIPine 5 MG Tablet PO (08:32)
[2019-03-11] MEDS: Senna/Docusate Sodium 1 Tablet 2 TABLET PO (08:33)
[2019-03-11] MEDS: APIXABAN 2.5 MG TABLET PO (08:34)
[2019-03-11] MEDS: oxyCODONE 5 MG Tablet 15 MG PO ×2 (08:35→16:35)
[2019-03-11] MEDS: Pregabalin 75 MG Capsule 150 MG PO (08:36)
--- NOTE | 2019-03-11 09:13 | CASEMGMT ---
Social Work Note SW faxed updated clinicals to [facility]. Plan: Return to [facility] once medically cleared Dary Farrell TURNAROUND ENGINEER, OLD TESTAMENT PROFESSOR
--- NOTE | 2019-03-11 10:43 | CASEMGMT ---
Addendum entered by Suellen Leslie 03/11/19 10:54: SW spoke w/pt, she states that she does not have anyone to put as POA for healthcare. She states her father has , her mother has dementia, her brother is incognito. Her sister is the only other family member, and at this time, pt does not want to put sister as POA. LINA Castañeda Original Note: Pt has general POA in the summary tab, no copy of medical POA or LW. SW called [facility], spoke w/Carolyn. There are no POA forms on file there, LW or medical POA. Jerry Orozco listed on general POA, however he has . As per Carolyn, POA has been an ongoing discussion w/pt, as her mother is also a resident at [facility] and she does not have anyone else at this time. [facility] staff plans to continue discussing this with her. LINA Castañeda
--- NOTE | 2019-03-11 10:55 | CASEMGMT ---
SW spoke w/Carolyn at [facility] [address], let her know pt may be returning today. Carolyn asked for PT/OT evaluations, they will try to skill pt, but pt can return when discharged. SW spoke w/pt, let her know that she may return to [facility] [address] today, and [facility] her so she can get therapy. Pt states understanding. SW and pt spoke about pt's longer term goal to get to their assisted living, support offered to pt. Pt states will need a ride back, SW explained we can set this up for her once we know she is discharged for certain. Pt states understanding and is agreeable. SW will continue to follow. LINA Castañeda
[2019-03-11 11:55] LABS: Bedside Glucose 192 mg/dL (70-110)
--- NOTE | 2019-03-11 13:05 | CASEMGMT ---
Social Work Note CLARENCE attempted to call Carolyn at [facility] and update her that physician stated pt is discharging today. Carolyn in a meeting, CLARENCE unable to leave message. Dary Farrell DRUPAL PROGRAMMER, RESORT DESK CLERK
[2019-03-11 13:35] VITALS: PULSE 96; RESP 20
--- NOTE | 2019-03-11 13:57 | PCM.PN.ORT ---
Patient Problems: Active and Suspected Problems (Last Reviewed 06/28/17 @ 12:57 by Coretta Pino) Closed intertrochanteric fracture of left hip (Acute) minimally displaced and impacted intertrochanteric fracture with sub troch extension Fall from slip, trip, or stumble (Acute) Left hip pain (Acute) Subjective: Seen and examined. Doing much better today. No fevers chills nausea vomiting shortness of breath or chest pain - Physical Exam General: Alert, Cooperative, No apparent distress Extremities: - - Dressing clean dry and intact compartment soft neurovascular intact EHL tibialis anterior gastrocsoleus intact sensation light touch palpable pedal pulses Vital Signs Temp Pulse Resp BP Pulse Ox 98.2 F 95 18 110/66 98 03/11/19 08:12 03/11/19 08:12 03/11/19 08:12 03/11/19 08:12 03/11/19 08:12 Oxygen Flow Rate (L/min) 1 Oxygen Delivery Method Room Air Weight: 182 lb 15.739 oz Body Mass Index (BMI) 32.4 Finger Stick Blood Glucose 126 Intake and Output for Last 24 Hours 03/09/19 03/10/19 03/11/19 23:59 23:59 23:59 Intake Total 3590.01 / 3590.01 4569.25 / 4569.25 907.5 / 907.5 Output Total 3075 / 3075 3000 / 3000 1300 / 1300 Balance 515.01 / 515.01 1569.25 / 1569.25 -392.5 / -392.5 Laboratory Tests Past 24 Hrs 03/11/19 03/11/19 05:26 05:26 WBC 10.7 RBC 4.07 L Hgb 11.7 L Hct 36.8 L MCV 90.4 MCH 28.7 MCHC 31.8 L RDW Std Deviation 46.2 H RDW Coeff of Gael 13.9 Plt Count 139 L MPV 10.1 Sodium 145 Potassium 3.9 Chloride 112 H Carbon Dioxide 26.0 Anion Gap 7 BUN 11 Creatinine 0.51 L Estim Creat Clear Calc 100.68 Est GFR (MDRD) Af Amer 160 Est GFR (MDRD) Non-Af 132 BUN/Creatinine Ratio 21.6 H Glucose 191 H Calcium 8.4 L POC Glucose 03/11/19 03/11/19 03/10/19 11:51 06:11 22:26 POC Glucose 192 H 169 H 214 H 03/10/19 17:16 POC Glucose 108 Medical Necessity - Tobacco Use Smoking Status: Current every day smoker Tobacco Use: Cigarettes Assessment/Plan All Active Problems (Last Reviewed 06/28/17 @ 12:57 by Coretta Pino) Closed intertrochanteric fracture of left hip (Acute) Fall from slip, trip, or stumble (Acute) Left hip pain (Acute) Postop day #1 left hip intertrochanteric femur fracture with subtrochanteric extension with fixation with long cephalo-medullary alta. Commend Eliquis 2.5 mg twice daily for 2 weeks post op then resume aspirin and Plavix which she was on previously. 50% weightbearing left lower extremity Follow up in 2 weeks for wound check staple removal and repeat x-ray of entire femur May shower 72 hours postop dressing to be removed prior to shower and then shower daily with a dressing change daily at that point
[2019-03-11 14:37] VITALS: BP 126/67; PULSE 99; RESP 18; TEMP 36.9; O2SAT 98
--- NOTE | 2019-03-11 15:37 | PCM.TXEXTCAR ---
- Diet 03/10/19 17:38 ADA [Diet: Calorie Controlled] Is pt able to select menu?: Yes How many daily calories?: 1800 calorie - Wound(s) right elbow Wound Type: Abrasion Left hip Wound Type: Surgical Incision - Therapies Weight Bearing: Partial weight bearing - 50 % wt bearing Extremity Affected:: Left Lower Physical Therapy: Eval and Treat Occupational Therapy: Eval and Treat - Problem/Diagnosis (1) Left hip pain Status: Acute Current Visit: Yes (2) Anxiety Status: Chronic Current Visit: No (3) Iron deficiency Status: Chronic Current Visit: No (4) Bipolar disorder Status: Chronic Current Visit: No (5) Closed intertrochanteric fracture of left hip Status: Acute Comment: minimally displaced and impacted intertrochanteric fracture with sub troch extension Current Visit: Yes (6) COPD (chronic obstructive pulmonary disease) Status: Chronic Current Visit: No (7) Diabetes mellitus Status: Chronic Current Visit: No (8) Schizophrenia Status: Chronic Current Visit: No (9) Chronic pain Status: Chronic Current Visit: No - Allergies/Procedures Done in Hospital Allergies/Adverse Reactions: Allergies Iodinated Contrast Media [Iodinated Contrast Media - IV Dye] Allergy (Verified 03/08/19 14:28) Hives amoxicillin trihydrate [From Augmentin] Adverse Reaction (Verified 03/08/19 14:28) Itching hydrocodone [From Vicodin] Adverse Reaction (Verified 03/08/19 14:28) Unknown potassium clavulanate [From Augmentin] Adverse Reaction (Verified 03/08/19 14:28) Itching prednisone Adverse Reaction (Verified 03/08/19 14:28) Unknown shellfish derived Adverse Reaction (Verified 03/08/19 14:28) Itching Procedures: - - insertion intramedullary nail 03/10/19 - Type of Care/Length of Stay Estimated LOS: Convalescent Care Less Than 30 days Type of Care Needed: Skilled Rehab Potential: Good Prognosis: Good - Additional Orders/Day of Discharge H&P will serve as current which was dated: 03/08/19 Day of Discharge: 03/11/19 - Follow Up Care Primary Care Physician: Ruddy Brandt Chi, MD [COURTESY STAFF PHYSICIAN] -
--- NOTE | 2019-03-11 16:12 | CASEMGMT ---
Social Work Note CLARENCE updated receptionist secretary Danielle that once physician completes discharge, discharge paperwork will need to be faxed and transportation will need to be arranged. Green sheet on pt's chart. CLARENCE completed [facility] in [facility]. Original on pt's chart. Plan: Discharge to [facility] today [facility], [employer]ATION [employer]ER
--- NOTE | 2019-03-11 16:33 | NURSING ---
call placed to [facility] and report given to RN who will be taking over care for this patient
[2019-03-11 16:46] LABS: Bedside Glucose 336 mg/dL (70-110)
--- NOTE | 2019-03-12 12:16 | PCM.DC.SUM ---
Discharge Date and Diagnosis Date of Admission: 03/08/19 Date of Discharge: 03/11/19 - Primary Discharge Diagnosis #1 acute left intertrochanteric fracture secondary to fall-suspect osteoporosis as the underlying cause #2 type 2 diabetes #3 schizophrenia #4 bipolar disorder #5 probable COPD #6 hyperlipidemia #7 chronic low back pain secondary to suspected degenerative disc disease lumbar spine #8 chronic anxiety disorder - Secondary Discharge Diagnosis Chronic Problems (Last Reviewed 06/28/17 @ 12:57 by Coretta Pino) Anxiety (Chronic) Iron deficiency (Chronic) Bipolar disorder (Chronic) CVA (cerebral vascular accident) (Chronic) COPD (chronic obstructive pulmonary disease) (Chronic) History of stroke (Chronic) Diabetes mellitus (Chronic) Hyperlipidemia (Chronic) Esophageal reflux (Chronic) History of tobacco use (Chronic) Schizophrenia (Chronic) Chronic pain (Chronic) Hospital Course and Treatment Operations: None Procedures: - - Left hip cephalic medullary nail insertion Summary of Care Provided: The patient is a 58 year old F who was seen in the emergency room at [facility] after being transported in from a nursing home facility due to a fall with left hip pain and inability to bear weight, work-up in the emergency room revealed patient have a left hip intertrochanteric fracture with subtrochanteric extension. This was felt to be secondary to osteoporosis. Patient was admitted to [place] [address], she was seen by PT and OT and orthopedic surgery, she underwent insertion of a cephalic medullary nail in the left hip and tolerated procedure well there is no complications. On 03/11/2019, patient was seen and examined felt to be in stable condition for discharge to her extended care facility: On examination she appeared in good health and spirits. Vital signs as documented. Skin warm and dry and without overt rashes. Neck without JVD. Lungs clear. Heart exam notable for regular rhythm, normal sounds and absence of murmurs, rubs or gallops. Abdomen unremarkable and without evidence of organomegaly, masses, or abdominal aortic enlargement. Extremities nonedematous. Neuro: Cranial nerves II through XII are grossly intact, no focal motor deficits were noted, sensation to light touch and pinprick is intact. Psych: Patient is alert and oriented x3, she does not appear anxious or depressed - Physical Exam Vital Signs Temp Pulse Resp BP Pulse Ox 98.5 F 99 18 126/67 H 98 03/11/19 14:37 03/11/19 14:37 03/11/19 14:37 03/11/19 14:37 03/11/19 14:37 Oxygen Flow Rate (L/min) 1 Oxygen Delivery Method Room Air Weight: 83 kg Body Mass Index (BMI) 32.4 Finger Stick Blood Glucose 126 Intake and Output for Last 24 Hours 03/10/19 03/11/19 03/12/19 23:59 23:59 23:59 Intake Total 4569.25 / 4569.25 907.5 / 907.5 Output Total 3000 / 3000 1300 / 1300 Balance 1569.25 / 1569.25 -392.5 / -392.5 POC Glucose 03/11/19 16:39 POC Glucose 336 H Home Medications: Medications to take at Discharge Atorvastatin Calcium [Lipitor] 80 mg PO QHS 07/25/16 Dulaglutide [Trulicity] 0.75 mg SQ FR 07/25/16 traZODone [Desyrel] 100 mg PO QHS PRN 01/23/18 Empagliflozin [Jardiance] 25 mg PO DAILY 06/19/18 Olanzapine [Zyprexa] 10 mg PO QHS 06/19/18 Oxybutynin Chloride [Ditropan Xl] 10 mg PO QHS 06/19/18 metFORMIN HCl [Glucophage] 1,000 mg PO BID 06/19/18 Amlodipine [Norvasc] 5 mg PO DAILY 03/08/19 CycloSPORINE Ophthalmic [Restasis Ophthalmic] 1 drp EACH EYE DAILY 03/08/19 Duloxetine Hcl [Cymbalta] 120 mg PO DAILY 03/08/19 Famotidine [Pepcid] 20 mg PO BID 03/08/19 Ferrous Sulfate 325 mg PO BIDCM 03/08/19 Formoterol Fumarate [Perforomist] 20 mcg INHALATION BID 03/08/19 Olanzapine [Zyprexa] 5 mg PO BID 03/08/19 Ondansetron HCl [Zofran] 4 mg PO Q6H PRN PRN 03/08/19 Prazosin HCl [Minipress] 1 mg PO QHS 03/08/19 Apixaban [Eliquis] 2.5 mg PO BID tab 03/11/19 Buprenorphine [Butrans 15 Mcg/Hr Patch] 1 ea TD QWEEK 7 Days #1 patch.tdwk 03/11/19 Epi Pen (for allergic rxn) 0.3 mg IM PRN PRN #0 03/11/19 Insulin Degludec [Tresiba Flextouch U-100] 45 unit SQ DAILY #1 insuln.pen 03/11/19 Lorazepam [Ativan] 1 mg PO Q6H #10 tab 03/11/19 Oxycodone HCl/Acetaminophen [Oxycodone-Acetaminophen 10-325] 1 tab PO 4X/DAY 7 Days #28 tab 03/11/19 Pregabalin 150 mg PO BID 7 Days #14 03/11/19 Senna/Docusate Sodium [Senokot-S] 2 tab PO BID tab 03/11/19 Following Prescrptions Were Given to Patient: Lorazepam [Ativan] 1 mg PO Q6H #10 tab Prescription Printed Buprenorphine [Butrans 15 Mcg/Hr Patch] 1 ea TD QWEEK 7 Days #1 patch.tdwk Prescription Printed Oxycodone HCl/Acetaminophen [Oxycodone-Acetaminophen 10-325] 1 tab PO 4X/DAY 7 Days #28 tab Prescription Printed Pregabalin 150 mg PO BID 7 Days #14 Prescription Printed Insulin Degludec [Tresiba Flextouch U-100] 45 unit SQ DAILY #1 insuln.pen Primary Care Physician: Ruddy Brandt Chi, MD [COURTESY STAFF PHYSICIAN] - Disposition: Shelter facility Minutes spent on discharge:: 32 Patient Condition:: Stable Medical Necessity - Tobacco Use Smoking Status: Current every day smoker Tobacco Use: Cigarettes Meaningful Use Info Meaningful Use Diagnoses (Choose all that apply): None applicable Code Visit Inpatient E&M: 13871 Disch Hosp
== END 2019-03-11 17:25 | disposition skilled nursing facility (03) | DRG 481 ==
LOC: ED 14:00 → MS3 15:08
PROVIDERS: Anesthesiology; Orthopaedic Surgery; Admitting Provider Internal Medicine; Emergency Provider Emergency Medicine; Family Provider Family Medicine; PCP Family Medicine; Referring Provider Internal Medicine; Visit Provider Internal Medicine
PROC: 0QS736Z Reposition Left Upper Femur with Intramedullary Internal Fixation Device, Percutaneous Approach (ICD-10-PCS; principal; 2019-03-10 10:00)
DX: M80.852A Other osteoporosis with current pathological fracture, left femur, initial encounter for fracture (principal); I69.351 Hemiplegia and hemiparesis following cerebral infarction affecting right dominant side; Y93.01 Activity, walking, marching and hiking; W01.0XXA Fall on same level from slipping, tripping and stumbling without subsequent striking against object, initial encounter; F17.210 Nicotine dependence, cigarettes, uncomplicated; Y92.129 Unspecified place in nursing home as the place of occurrence of the external cause; F20.9 Schizophrenia, unspecified; F31.9 Bipolar disorder, unspecified; J44.9 Chronic obstructive pulmonary disease, unspecified; E78.5 Hyperlipidemia, unspecified; Z79.82 Long term (current) use of aspirin; F41.9 Anxiety disorder, unspecified; G89.29 Other chronic pain; Z79.02 Long term (current) use of antithrombotics/antiplatelets; M54.5 Low back pain; M51.36 Other intervertebral disc degeneration, lumbar region; Z79.84 Long term (current) use of oral hypoglycemic drugs; E11.9 Type 2 diabetes mellitus without complications
CPT/HCPCS: 36415; 51702; 70450; 71045; 72100; 73502; 73552; 76000; 80048; 82962; 83036; 85025; 85027; 85610; 85730; 86850; 86900; 86901; 93005; 94640; 97163; 97166; 99285; 99406; C1713; C1776; J7030; J7120; A4216; J2405

== ENCOUNTER → 2019-03-25 09:36 | Outpatient (CLI) | payer MEDICARE, MEDICAID, SELFPAY ==
[2019-03-10 09:40] VITALS: BMI 32.4
--- NOTE | 2019-03-25 09:39 | RAD_ITS ---
STUDY: X-RAY - LEFT FEMUR REASON FOR STUDY: Postoperative. TECHNIQUE: 2 view(s) of the femur. COMPARISON: Intraoperative images 03/10/2019 and radiographs 03/09/2019. FINDINGS: There is an intramedullary alta and hip screw transfixing an intertrochanteric/proximal femoral diaphyseal fracture in anatomical alignment and position. There is also avulsion fracture of the lesser tuberosity. There are overlying skin paz. There is vascular calcification. RAD/Femur Min 2 Views IMPRESSION: ORIF of proximal left femoral fracture in anatomic alignment and position. Electronically Signed: Ismael Jones MD at 10:11 EDT Tel , Service support ,
== END ==
PROVIDERS: Family Provider Family Medicine; PCP Family Medicine; Referring Provider Orthopaedic Surgery; Visit Provider Orthopaedic Surgery
DX: Z47.89 Encounter for other orthopedic aftercare (principal)
CPT/HCPCS: 73552

== ENCOUNTER → 2019-04-08 09:18 | Outpatient (CLI) | payer MEDICARE, MEDICAID, SELFPAY ==
[2019-04-08 08:01] VITALS: BMI 32.4
--- NOTE | 2019-04-08 09:20 | RAD_ITS ---
STUDY: X-RAY - LEFT FEMUR REASON FOR STUDY: Female, 58 years old. Postop TECHNIQUE: 4 view(s) of the femur. COMPARISON: Prior study of 03/25/2019 FINDINGS: Status post ORIF changes of the left femur are noted stabilizing an oblique fracture of the proximal femoral metaphysis/intertrochanteric region. The femoral implant alta extends the entire length of left femur. There has been interval removal of skin paz seen on the prior study. RAD/Femur Min 2 Views IMPRESSION: Status post ORIF changes of intertrochanteric/proximal femoral metaphyseal fracture, which appears in excellent alignment. Sclerosis of fracture margins is seen. Bone union has not occurred as of yet. Electronically Signed: Nicho Estrella MD at 17:22 EDT , Service support ,
== END ==
PROVIDERS: Family Provider Family Medicine; PCP Family Medicine; Referring Provider Orthopaedic Surgery; Visit Provider Orthopaedic Surgery
DX: M25.552 Pain in left hip (principal)
CPT/HCPCS: 73552

== ENCOUNTER 2021-07-29 22:39 | Emergency (ER) | payer MEDICARE, MEDICAID, SELFPAY ==
[2021-07-29 22:40] VITALS: BP 171/84; PULSE 101; RESP 16; TEMP 36.4; O2SAT 95; BMI 36.4
--- NOTE | 2021-07-29 23:04 | RAD_ITS ---
STUDY: X-RAY - PELVIS REASON FOR EXAM: Female, 60 years old. Injury/Pain TECHNIQUE: One view of the pelvis was obtained. COMPARISON: No recent studies FINDINGS: There is a non-specific bowel gas pattern. Normal visualized soft tissue structures. Normal bilateral iliac wings, sacroiliac joints and visualized sacrum. Normal visualized bilateral superior and inferior pubic rami. Normal pubic symphysis. Normal ischial tuberosities. Normal visualized right femoral head. Normal right acetabulum. Normal right hip joint. Normal visualized left femoral head. Normal left acetabulum. Normal left hip joint. Surgical hardware in the proximal left femur free of complication RAD/Pelvis 1 or 2 Views IMPRESSION: No demonstrated fracture or suspicious osseous lesion Electronically Signed: Chico Bocanegra MD at 23:29 EST , Service support ,
--- NOTE | 2021-07-29 23:04 | RAD_ITS ---
STUDY: X-RAY - RIGHT FEMUR REASON FOR STUDY: Female, 60 years old. Injury/Pain TECHNIQUE: 4 view(s) of the femur. COMPARISON: None. FINDINGS: Normal visualized femur. Normal visualized soft tissue structure. Linear sclerotic markings in the femur and proximal tibia likely bone infarcts. Age consistent hip and knee joint arthrosis RAD/Femur Min 2 Views IMPRESSION: No demonstrated fracture or suspicious osseous lesion Electronically Signed: Chico Bocanegra MD at 23:28 EST , Service support ,
[2021-07-29] MEDS: HYDROmorphone 1 MG/ML Syringe IM (23:27)
--- NOTE | 2021-07-30 00:21 | EX.ED.DYSGE1 ---
HPI History of Present Illness Chief Complaint: Lower Extremity Injury Informant: patient Narrative Narrative: Patient is a 60-year-old female with history of stroke with right-sided deficits at baseline and prior left hip fracture, currently nonambulatory in a wheelchair presenting after fall. Patient was tried to transfer self into her wheelchair when the wheelchair moved and she fell onto the tile floor. She states she landed on her right side. Since then she has had very significant pain. She had an x-ray of her hip which did not show any acute fracture however she has not had a complain of more pain in her femur so she was brought to the emergency room for further imaging and evaluation. Patient does have issues with chronic pain and is on 10 mg Percocet 4 times a day at baseline. Patient denies any new numbness or tingling. She has chronic paresthesias and weakness of the right side secondary to her stroke. [facility] Medical History (Updated 07/30/21 @ 01:[address] Yanna Castorena, DO) Anxiety Cerebral vascular disease Diabetes GERD (gastroesophageal reflux disease) Hyperlipidemia Hypertension Insomnia Mild asthma Neuralgia and neuritis Schizoaffective disorder Schizophrenia Spondylosis Home Medications atorvastatin 80 mg PO QHS 07/25/16 [History Last Taken 03/08/19 08:00] dulaglutide 4.5 mg SQ FR 07/25/16 [History Last Taken 03/06/19 08:00] amlodipine 5 mg PO DAILY 03/08/19 [History Last Taken 03/08/19] duloxetine 120 mg PO DAILY 03/08/19 [History Last Taken 03/08/19] formoterol fumarate 20 mcg INHALATION BID 03/08/19 [History Last Taken 03/08/19 08:00] ondansetron HCl 4 mg PO Q6H PRN PRN 03/08/19 [History Last Taken Unknown] prazosin 1 mg PO QHS 03/08/19 [History Last Taken 03/07/19 20:00] Pregabalin 150 mg PO BID 7 Days #14 03/11/19 [Rx Last Taken Unknown] oxycodone-acetaminophen 1 tab PO 4X/DAY 7 Days #28 tab 03/11/19 [Rx Last Taken Unknown] albuterol sulfate 2.5 mg INHALATION Q4H PRN 07/29/21 [History Last Taken Unknown] apixaban [Eliquis] 5 mg PO BID 07/29/21 [History Last Taken Unknown] cholecalciferol (vitamin D3) [Vitamin D3] 50 mcg PO DAILY 07/29/21 [History Last Taken Unknown] cyclobenzaprine 10 mg PO DAILY 07/29/21 [History Last Taken Unknown] cyclosporine [Restasis] 1 drp EACH EYE Q12H 07/29/21 [History Last Taken Unknown] insulin aspart U-100 unit SUBCUT LUNCH 07/29/21 [History Last Taken Unknown] insulin glargine [Lantus Solostar U-100 Insulin] 76 unit SUBCUT BID 07/29/21 [History Last Taken Unknown] loperamide 2 mg PO Q4H PRN 07/29/21 [History Last Taken Unknown] lorazepam 0.5 mg PO Q6H 07/29/21 [History Last Taken Unknown] lurasidone [Latuda] 80 mg PO DAILY 07/29/21 [History Last Taken Unknown] naloxegol [Movantik] 25 mg PO DAILY 07/29/21 [History Last Taken Unknown] ondansetron HCl [Zofran] 4 mg PO Q6H PRN 07/29/21 [History Last Taken Unknown] pantoprazole 40 mg PO DAILY 07/29/21 [History Last Taken Unknown] quetiapine [Seroquel XR] 400 mg PO QHS 07/29/21 [History Last Taken Unknown] quetiapine [Seroquel] 50 mg PO DAILY 07/29/21 [History Last Taken Unknown] zolpidem [Ambien] 10 mg PO QHS PRN 07/29/21 [History Last Taken Unknown] Allergy/AdvReac Type Severity Reaction Status Date / Time Iodinated Contrast Media Allergy Hives Verified 03/08/19 14:28 [Iodinated Contrast Media - IV Dye] amoxicillin trihydrate AdvReac Itching Verified 03/08/19 14:28 [From Augmentin] hydrocodone [From Vicodin] AdvReac Unknown Verified 03/08/19 14:28 potassium clavulanate AdvReac Itching Verified 03/08/19 14:28 [From Augmentin] prednisone AdvReac Unknown Verified 03/08/19 14:28 shellfish derived AdvReac Itching Verified 03/08/19 14:28 Surgical History S/P right rotator cuff repair Social History (Updated 04/08/19 @ 10:[address] Akil Francois, DO) Smoking Status: Current every day smoker tobacco type: cigarettes ROS ROS ED Constitutional Constitutional ED: Denies chills or fever(s) Eyes Eyes: Denies change in vision ENT ENT ED: Denies rhinorrhea Cardiovascular Cardiovascular: Denies chest pain Respiratory/Chest Respiratory/Chest: Denies cough or dyspnea Gastrointestinal Gastrointestinal: Denies abdominal pain or nausea Musculoskeletal Musculoskeletal: Reports other Details: right hip/leg pain ; Denies myalgias Integumentary Denies rash Neurologic Neurologic: Reports paresthesias RUE and RLE and weakness; Denies headache(s) Psychiatric Psychiatric: Denies depression EXAM Physical Exam Const Vital Signs: 07/29/21 22:40 07/30/21 00:33 07/30/21 01:46 Temperature 97.6 F L Temperature Source Oral Pulse Rate 101 H 100 115 H Respiratory Rate 16 16 21 H Blood Pressure 171/84 H 148/89 H 142/96 H Blood Pressure Mean 113 111 Pulse Ox 95 98 98 Oxygen Delivery Method Room Air Room Air Positive well nourished and well developed General Appearance ED: well developed HEENT Reports TM's clear and moist mucous membranes HEENT Narrative: No hemotympanum Negative for trauma Tympanic Membrane ED: Yes TM's clear Eyes PERRL and EOMs intact bilaterally Neck supple and no JVD Chest Wall inspection of chest normal Resp normal respiratory effort and clear to auscultation bilaterally Cardio regular rate, regular rhythm and no murmurs Rate: other Other Details: 2+ bilateral DP pulses GI normal to inspection, nondistended, normoactive bowel sounds Extremity Extremity Narrative: No obvious deformity of the right hip/lower extremity. It is propped up on a pillow. She has tenderness palpation of the hip diffusely with no obvious deformity. Pain with range of motion present. No obvious signs of trauma or edema. Neuro oriented x3 Neuro Narrative: Right-sided weakness and sensory deficit consistent with prior stroke Sensorium / Orientation: alert Psych mental status grossly normal Skin no rashes or lesions noted and no wounds MDM MDM MDM Narrative Medical decision making narrative: Patient evaluated for continued hip pain after mechanical fall. X-ray of the hip and femur do not show any acute fracture. Patient is given a dose of Dilaudid with improvement of her pain. She does have an episode of vomiting with this but denies any nausea and does not want any Zofran. Initially did order her dose of fentanyl for further pain control but she now states her pain is improving and does not need it. Given the negative x-rays and the fact that she is nonweightbearing at baseline I feel that she stable for outpatient follow-up. I suspect she is having difficulty with pain control as she is on chronic pain medications. She has good distal pulses and no signs of ischemia. Will be discharged back to nursing facility. Radiography Diagnostic Testing: Clinical Impression(s) from Imaging Studies Femur X-Ray 07/29/21 23:04 IMPRESSION: No demonstrated fracture or suspicious osseous lesion Electronically Signed: Chico Bocanegra MD at 23:28 EST , Service support , Pelvis X-Ray 07/29/21 23:04 IMPRESSION: No demonstrated fracture or suspicious osseous lesion Electronically Signed: Chico Bocanegra MD at 23:29 EST , Service support , Discharge Plan Triage Chief Complaint: Lower Extremity Injury ED Provider: Yanna Castorena Dx/Rx/DC Orders Clinical Impression: Contusion of hip, right, Acute pain of right lower extremity Instructions: ED Contusion, Lower Extremity Prescriptions: No Action atorvastatin 80 MG tablet 80 mg PO QHS RF: 0 dulaglutide 1.5 MG/0.5 ML pen injector 4.5 mg SQ FR RF: 0 prazosin 1 MG capsule 1 mg PO QHS RF: 0 amlodipine 5 MG tablet 5 mg PO DAILY RF: 0 duloxetine 60 MG capsule 120 mg PO DAILY RF: 0 ondansetron HCl 4 MG tablet 4 mg PO Q6H PRN PRN (Reason: Nausea) RF: 0 formoterol fumarate 20 MCG/2 ML solution for nebulization 20 mcg inhalation BID RF: 0 oxycodone-acetaminophen 1 EACH tablet 1 tab PO 4X/DAY 7 Days Qty: 28 RF: 0 Pregabalin 150 mg PO BID 7 Days Qty: 14 RF: 0 cyclobenzaprine 10 mg Tablet 10 mg PO DAILY RF: 0 albuterol sulfate 2.5 mg /3 mL (0.083 %) Solution For Nebulization 2.5 mg INHALATION Q4H PRN (Reason: SOB) RF: 0 loperamide 2 mg Capsule 2 mg PO Q4H PRN (Reason: Diarrhea) RF: 0 ondansetron HCl [Zofran] 4 mg Tablet 4 mg PO Q6H PRN (Reason: NAUSEA) RF: 0 pantoprazole 40 mg Tablet,Delayed Release (Dr/Ec) 40 mg PO DAILY RF: 0 zolpidem [Ambien] 10 mg Tablet 10 mg PO QHS PRN (Reason: Sleep) RF: 0 insulin aspart U-100 100 unit/mL (3 mL) Insulin Pen SUBCUT LUNCH RF: 0 Restasis 0.05 % Dropperette 1 drp EACH EYE Q12H RF: 0 quetiapine [Seroquel] 50 mg Tablet 50 mg PO DAILY RF: 0 quetiapine [Seroquel XR] 400 mg Tablet Extended Release 24 Hr 400 mg PO QHS RF: 0 Lantus Solostar U-100 Insulin 100 unit/mL (3 mL) Insulin Pen 76 unit SUBCUT BID RF: 0 cholecalciferol (vitamin D3) [Vitamin D3] 50 mcg (2,000 unit) Tablet 50 mcg PO DAILY RF: 0 Latuda 80 mg Tablet 80 mg PO DAILY RF: 0 Eliquis 5 mg Tablet 5 mg PO BID RF: 0 Movantik 25 mg Tablet 25 mg PO DAILY RF: 0 lorazepam 1 MG tablet 0.5 mg PO Q6H RF: 0 Primary Care Provider: Jeronimo Arrieta Referrals: Akil Francois DO [STAFF PHYSICIAN] - As Needed Jeronimo Arrieta MD [Primary Care Provider] - Disposition Disposition: Home, Self Care Discharge Date/Time: 07/30/21 01:43
[2021-07-30 00:33] VITALS: BP 148/89; PULSE 100; RESP 16; O2SAT 98
--- NOTE | 2021-07-30 00:58 | ED.RN ---
patient pain is controlled and there was an error with pharm and emr crossing overr. Patient IV already pulled. Fentanyl not given and Dr Castorena is aware.
[2021-07-30 01:46] VITALS: BP 142/96; PULSE 115; RESP 21; O2SAT 98
== END 2021-07-30 01:43 | disposition home or self-care (01) ==
PROVIDERS: Emergency Provider Emergency Medicine; PCP Family Medicine; Visit Provider Emergency Medicine
DX: S70.01XA Contusion of right hip, initial encounter (principal); F25.9 Schizoaffective disorder, unspecified; I69.351 Hemiplegia and hemiparesis following cerebral infarction affecting right dominant side; E11.40 Type 2 diabetes mellitus with diabetic neuropathy, unspecified; Z79.4 Long term (current) use of insulin; E78.5 Hyperlipidemia, unspecified; I10 Essential (primary) hypertension; W05.0XXA Fall from non-moving wheelchair, initial encounter; F17.210 Nicotine dependence, cigarettes, uncomplicated; G89.29 Other chronic pain; Z99.3 Dependence on wheelchair; F41.9 Anxiety disorder, unspecified; K21.9 Gastro-esophageal reflux disease without esophagitis; J45.909 Unspecified asthma, uncomplicated; Z79.899 Other long term (current) drug therapy; Z79.01 Long term (current) use of anticoagulants; Y93.9 Activity, unspecified; Y92.9 Unspecified place or not applicable; R11.10 Vomiting, unspecified
CPT/HCPCS: 72170; 73552; 96372; 96374; 99284

== ENCOUNTER → 2022-01-08 | Outpatient (CLI) | payer MEDICARE, MEDICAID, SELFPAY ==
--- NOTE | 2022-01-08 12:09 | RAD_ITS ---
STUDY: X-RAY - LUMBAR SPINE REASON FOR EXAM: Female, 61 years old. DISC DEGENERATION LUMBOSACRAL TECHNIQUE: XR Spine Lumbar 2 or 3 Views COMPARISON: None FINDINGS: Normal lumbar lordosis. There is no substantial scoliosis. There is a normal alignment of the vertebrae. There is multilevel endplate spondylosis of the lumbar vertebrae. Normal disc space heights. There is atherosclerotic calcification of the abdominal aorta without a demonstrated aneurysm. RAD/Lumbar Spine 2 or 3 Views IMPRESSION: There are no acute findings. Electronically Signed: Roberto Zhou MD at 17:23 EDT ,
--- NOTE | 2022-01-08 12:20 | RAD_ITS ---
STUDY: X-RAY - CERVICAL SPINE REASON FOR EXAM: Female, 61 years old. DISC DEGENERATION CERVICAL TECHNIQUE: XR Spine Cervical 4 or 5 Views COMPARISON: None FINDINGS: Normal anterior atlantoaxial articulation. The odontoid process is obscured by the overlying hard palate on the open mouth view. Therefore, it is not fully evaluated by plain film. There is straightening of the normal cervical lordosis. There is multi-level endplate spondylosis. There is multi-level degenerative disc disease with multilevel disc space narrowing. There is multi-level osseous foraminal stenosis. The soft tissue structures are unremarkable. RAD/Cerv Spine 2 or 3 Views IMPRESSION: There are degenerative changes as noted above. The odontoid process is obscured by the overlying hard palate on the open mouth view. Therefore, it is not fully evaluated by plain film. Electronically Signed: Roberto Zhou MD at 17:22 EDT ,
== END | disposition home or self-care (01) ==
LOC: RAD 12:06
PROVIDERS: Referring Provider Anesthesiology Pain Medicine; Visit Provider Anesthesiology Pain Medicine
DX: M51.37 Other intervertebral disc degeneration, lumbosacral region (principal); M47.895 Other spondylosis, thoracolumbar region
CPT/HCPCS: 72040; 72100

== ENCOUNTER 2022-12-06 09:45 | Outpatient (RCR) | payer MEDICARE, MEDICAID, SELFPAY ==
[2022-11-22 08:59] VITALS: BP 115/58; PULSE 77; RESP 20; TEMP 36.5
--- NOTE | 2022-11-22 13:22 | PCM.WC.HP ---
History of Present Illness Date of Service: 11/22/22 Chief Complaint: Non healing right ankle ulcer History of Wound: Ms. Lam is a 62-year-old who was referred to this facility due to nonhealing right lateral ankle ulcer. Noted a year ago, started out as a bullae and subsequently opened up. She states that over the years, she has had alginate and collagen dressings done at her facility without any significant improvement. History of diabetes mellitus, she is not sure of her most recent A1c but states that it has ranged from 8-13. Also history of tobacco use, smokes daily. There is significant pain around the ulcer but she denies otherwise significant leg pain. Does not wear compression. Sleep sedentary but sleeps in the bed. She feels well otherwise, no chills, fever, nausea, vomiting or change in bowel habit reported. [facility] Medical History (Updated 11/22/22 @ 13:[address] Chilango Laughlin MD) Anxiety Cerebral vascular disease 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 Diabetes GERD (gastroesophageal reflux disease) Hyperlipidemia Hypertension Insomnia Insulin dependent diabetes mellitus Mild asthma Neuralgia and neuritis Schizoaffective disorder Schizophrenia Spondylosis Tobacco abuse Home Medications atorvastatin 80 mg tablet 80 mg PO QHS cholesterol 07/25/16 [History Last Taken 03/08/19 08:00] dulaglutide 1.5 mg/0.5 mL subcutaneous pen injector 4.5 mg SQ FR diabetes 07/25/16 [History Last Taken 03/06/19 08:00] amlodipine 5 mg tablet 5 mg PO DAILY blood pressure 03/08/19 [History Last Taken 03/08/19] duloxetine 60 mg capsule,delayed release 120 mg PO DAILY depression 03/08/19 [History Last Taken 03/08/19] formoterol fumarate 20 mcg/2 mL solution for nebulization 20 mcg inhalation BID cough 03/08/19 [History Last Taken 03/08/19 08:00] ondansetron HCl 4 mg tablet 4 mg PO Q6H PRN PRN Nausea 03/08/19 [History Last Taken Unknown] prazosin 1 mg capsule 1 mg PO QHS nightmares 03/08/19 [History Last Taken 03/07/19 20:00] Pregabalin 150 mg PO BID neuropathy 7 days ##14 03/11/19 [Rx Last Taken Unknown] oxycodone-acetaminophen 10 mg-325 mg tablet 1 tab PO 4X/DAY pain 7 days #28 tabs 03/11/19 [Rx Last Taken Unknown] albuterol sulfate 2.5 mg/3 mL (0.083 %) solution for nebulization 2.5 mg inhalation Q4H PRN SOB 07/29/21 [History Last Taken Unknown] apixaban 5 mg tablet (Eliquis) 5 mg PO BID 07/29/21 [History Last Taken Unknown] cholecalciferol (vitamin D3) 50 mcg (2,000 unit) tablet (Vitamin D3) 50 mcg PO DAILY 07/29/21 [History Last Taken Unknown] cyclobenzaprine 10 mg tablet 10 mg PO DAILY 07/29/21 [History Last Taken Unknown] cyclosporine 0.05 % eye drops in a dropperette (Restasis) 1 drp EACH EYE Q12H 07/29/21 [History Last Taken Unknown] insulin aspart U-100 100 unit/mL (3 mL) subcutaneous pen unit subcut LUNCH 07/29/21 [History Last Taken Unknown] loperamide 2 mg capsule 2 mg PO Q4H PRN Diarrhea 07/29/21 [History Last Taken Unknown] lurasidone 80 mg tablet (Latuda) 80 mg PO DAILY 07/29/21 [History Last Taken Unknown] naloxegol 25 mg tablet (Movantik) 25 mg PO DAILY 07/29/21 [History Last Taken Unknown] ondansetron HCl 4 mg tablet 4 mg PO Q6H PRN NAUSEA 07/29/21 [History Last Taken Unknown] pantoprazole 40 mg tablet,delayed release 40 mg PO DAILY 07/29/21 [History Last Taken Unknown] quetiapine 400 mg tablet,extended release 24 hr (Seroquel XR) 400 mg PO QHS 07/29/21 [History Last Taken Unknown] quetiapine 50 mg tablet (Seroquel) 50 mg PO DAILY 07/29/21 [History Last Taken Unknown] zolpidem 10 mg tablet (Ambien) 10 mg PO QHS PRN Sleep 07/29/21 [History Last Taken Unknown] Allergy/AdvReac Type Severity Reaction Status Date / Time Iodinated Contrast Media Allergy Hives Verified 11/22/22 09:14 [Iodinated Contrast Media - IV Dye] amoxicillin trihydrate AdvReac Itching Verified 11/22/22 09:14 [From Augmentin] hydrocodone [From Vicodin] AdvReac Unknown Verified 11/22/22 09:14 potassium clavulanate AdvReac Itching Verified 11/22/22 09:14 [From Augmentin] prednisone AdvReac Unknown Verified 11/22/22 09:14 shellfish derived AdvReac Itching Verified 11/22/22 09:14 Surgical History S/P right rotator cuff repair Social History (Updated 04/08/19 @ 10:[address] Akil Francois, DO) Smoking Status: Current every day smoker tobacco type: cigarettes ROS Constitutional Constitutional: Denies chills, excessive sweating, fatigue, headache(s), increased appetite, night sweats, poor appetite or weakness Eyes Eyes: Denies change in vision, discharge from eye(s), discongugate gaze, excessive blinking, exophthalmos, loss of peripheral vision or nystagmus ENT HEENT: Denies dysphagia, ear discharge, ear pain, epistaxis, foreign body in nose, halitosis, headache(s), hearing loss or hoarseness Cardiovascular Cardiovascular: Reports leg ulcers; Denies bluish discoloration of hand/feet, chest pain, cyanosis, diaphoresis, dizziness, erythema on extremities, lightheadedness or pounding heartbeat Respiratory/Chest Respiratory/Chest: Denies difficulty clearing secretions, dusky skin, dyspnea, hemoptysis, hoarseness, inability to speak, mouth breathing, nail bed cyanosis or shortness of breath at rest Gastrointestinal Gastrointestinal: Denies change in bowel habits, chewing difficulty, coffee ground emesis, dry heaves or taste impaired Genitourinary Genitourinary: Denies abdominal discomfort, difficulty urinating, movement, flank pain, itching or urinary frequency Musculoskeletal Musculoskeletal: Denies muscle spasms, neck pain, radiating pain into limb, tingling or tremors Integumentary Integumentary: Reports skin ulcer; Denies erythema, furuncle, hirsutism, jaundice, nail changes, pruritus or skin swelling Neurologic Neurologic: Denies behavior changes, burning sensations, convulsions, disequilibrium, loss of vision or memory loss Psychiatric Psychiatric: Denies hallucinations, homicidal ideation, hopelessness, irritability, memory loss, suicidal ideation, tactile hallucinations or visual hallucinations Endocrine Endocrinology: Denies deepening of the voice, excessive sweating, heat intolerance, increase in ring/shoe/hat size or polydipsia Hematologic/Lymphatic Hematologic/Lymphatic: Denies lymphadenopathy Allergic/Immunologic Allergic/Immunologic: Denies itchy eyes, throat swelling, tongue swelling, urticaria, eczemia or wheezing Vital Signs Vital Signs Vital Signs: 11/22/22 08:59 Temperature 97.7 F L Temperature Source Temporal Pulse Rate 77 Respiratory Rate 20 H Blood Pressure 115/58 L Blood Pressure Mean 77 Blood Pressure Source Monitor Physical Exam Const alert, oriented x3 and no apparent distress General Appearance: cooperative, comfortable and well kempt HEENT normocephalic and head/scalp atraumatic Eyes EOMs intact bilaterally General Eye: normal appearance of both eyes Neck full ROM and supple General: normal visual inspection Resp normal respiratory effort and normal air movement Effort and Inspection: able to speak in complete sentences Cardio regular rate, regular rhythm, S1 normal heart sound and S2 normal heart sound GI soft to palpation and non-tender Extremity General Extremity: edema Skin Wounds: wounds noted Neuro oriented x3, CN's II-XII intact bilaterally and moves all extremities Psych mental status grossly normal, thought process normal, cooperative and affect normal Debridement Note Debridement Note Wound debrided: Right lateral ankle Type of Debridement: Excisional debridement Anesthesia Used: 5% Lidocaine Gel Depth: Down to and including healthy tissue and in the subcutaneous layer Percentage of wound debrided: 100 Instrument Used: 5mm curette Tissue Removed: Slough and devitalized tissue Severity: Fat Layer Exposed Amount of bleeding with debridement: Mild Bleeding Controlled with: Pressure Post-Debridement Measurements and Additional Note: Post-Debridement Measurements/Treatment - Nurse 1 - General Ulcer Assessment Start: 11/22/22 08:59 Freq: Status: Active Protocol: RUY.LOWRAHEEMT Activity Type Activity Date Activity User E-sign Co-sign Detail Recorded Client Recorded Date Recorded By Document 11/22/22 08:59 RAMYA [id number] 11/22/22 09:12 DL 11/22/22 08:59 - Today's Visit Information Type of service Initial Visit Arrival Mode Wheelchair Transfer Assistance Manual Transfer Assist (Other) x1 Patient Identification Verified (Name & Yes ) Patient Requires Transmission-Based No Precautions Vital Signs Temperature (97.8 F-99.1 F) 97.7 F L Temperature Source Temporal Pulse Rate (60-100) 77 Pulse Location Monitor Respiratory Rate (12-18) 20 H Respiratory rate source Observation Blood Pressure (90/60-120/80) 115/58 L Blood Pressure Mean 77 Source Monitor Pain Scale: 0-10 Numeric Is Patient Pain Free? Yes Lower Extremity Assessment/ Foot Assessment/ Toe Nail Assessment Left -Posterior Tibial Palpable Yes -Dorsalis Pedis Palpable Yes -Extremity Color Hyperpigmented -Hair Growth on Legs No -Hair Growth on Toes No -Temperature of Extremity Warm -Capillary Refill Greater than 3 Seconds -Dependent Rubor No -Blanched when Elevated No -Lipodermatosclerosis No -Other Deformity No -Prior Foot Ulcer No -Charcot Joint No -Prior Amputation No -Thick Yes -Discolored Yes -Deformed No -Improper Length & Hygeine No Right -Posterior Tibial Palpable Yes -Dorsalis Pedis Palpable Yes -Extremity Color Hyperpigmented -Hair Growth on Legs No -Hair Growth on Toes No -Temperature of Extremity Warm -Capillary Refill Greater than 3 Seconds -Dependent Rubor No -Blanched when Elevated No -Lipodermatosclerosis No -Other Deformity No -Prior Foot Ulcer No -Charcot Joint No -Prior Amputation No -Thick No -Discolored Yes -Deformed No -Improper Length & Hygeine No Communication Assessment Preferred language [place] Able to Read Yes Able to Write Yes Communication Tools None Right Hearing Abillity Normal Left Hearing Abillity Normal Visual Assistive Devices Glasses Teaching Assessment Preferences Verbal,Written, Demonstration Barriers to Learning None Readiness To Learn Fair Willingness to Engage in Self Management Med Activies Readiness to Engage in Self Management Med Activities Anxiety Level Calm Cooperation Cooperative Perception Coherent Interest in Health Problem Asks Questions Education Importance Acknowledges Need Does Patient Smoke tobacco or other Yes substances Smoking Status Current every day smoker Is Patient Diabetic Yes Functional Assessment Recent Decline in Ability to Perform Denies Any Declines Culture/Yazidi/Pharmacy Customer Care Specialist Cultural/Yazidi Needs that may affect No Treatment Plan Would you allow our hospital wine specialist to No meet you for the purpose of spiritual/ emotional support? Pharmacy Customer Care Specialist to contact place of adventist No Teaching: Wound Center Discharge Instructions -Person Taught Patient Dressing Your Wound -Person Taught Patient *Welcome to the Wound Center -Person Taught Patient WC - Nurse 1 - General Ulcer Measurement Start: 11/22/22 08:59 Freq: Status: Active Protocol: Activity Type Activity Date Activity User E-sign Co-sign Detail Recorded Client Recorded Date Recorded By Document 11/22/22 08:59 DL [id number] 11/22/22 09:12 DL 11/22/22 08:59 Wound Center Nurse 1 #[address] [facility] Ankle -Current Size (cm) - Length 1.8 -Current Size (cm) - Width 1.8 -Current Size (cm) - Depth 0.5 -Total Square Cm 3.24 -Photo Taken Yes -Classification - Thickness Full Thickness without Exposed Support Structure -Exudate Amt Medium -Exudate Type Serosanguineous -Wound Margin Thickened -Granulation Amt Large (67-100%) -Granulation Quality Red -Necrosis Amt Small (1-33%) -Necrotic Tissue Type Adherent Slough -Structure Exposed N/A -Texture (Lori-wound Skin Appearance) Scarring -Moisture (Lori-wound Skin Appearance) Maceration -Color (Lori-wound Skin Appearance) No Abnormality -Temperature (Olri-wound Skin No Abnormality Appearance) (Pt Warm) -Tenderness on Palpation (Lori-wound No Skin Appearance) -Ulcer Cleansing Soap and Water -Foul Odor after Cleansing No -Anesthetic Used 5% Lidocaine Gel Right Calf (cm) 39 Right Ankle (cm) 25.5 Left Calf (cm) 39.5 Left Ankle (cm) 23 WC - Nurse 2 - General Ulcer CM Notes Start: 11/22/22 08:59 Freq: Status: Active Protocol: Activity Type Activity Date Activity User E-sign Co-sign Detail Recorded Client Recorded Date Recorded By Document 11/22/22 09:38 MW [id number] 11/22/22 09:48 MW 11/22/22 09:38 Wound Center Nurse 2 #1 [facility] Ankle -Time 09:40 -Correct Patient Yes -Correct Side, Site, Position Yes -Correct Procedure Yes -Procedure Performed Yes -Type of Procedure Debridement -Clinical Debridement Subcutaneous -Tissue Removed Subcutaneous -Post Debridement (cm) - Length 2.0 -Post Debridement (cm) - Width 2.0 -Post Debridement (cm) - Depth 0.1 -Total Square (Post) (cm) 4.00 -Area of Debridement (cm) - Length 2.0 -Area of Debridement (cm) - Width 2.0 -Total Square (Area) (cm) 4.00 -Tunneling No -Undermining/Tunneling No -Circular Undermining No -Wound/Ulcer Outcome Not Healed -Ulcer Cleansing Rinsed/ Irrigated with Saline -Foul Odor after Cleansing No -Bioengineered Tissue No -Bleeding Controlled with Pressure -Treatment Response Procedure Tolerated Well -Offloading No -Debridement - Subq, 1st 20sq cm Yes Pain Scale: 0-10 Numeric Is Patient Pain Free? Yes WC - Nurse 3 - General Ulcer D/C NN Start: 11/22/22 08:59 Freq: Status: Active Protocol: Activity Type Activity Date Activity User E-sign Co-sign Detail Recorded Client Recorded Date Recorded By Document 11/22/22 10:16 RB [id number] 11/22/22 10:17 RB 11/22/22 10:16 Wound Care Center Nurse 3 #1 R Lat Ankle -Ulcer Cleansing Rinsed/ Irrigated with Saline -Primary Dressing Applied NonAdherent Contact Layer, Promogran, Mepilex Border -Mepilex Border 1 -Promogran 1 Right -Size of Tubigrip Used Size D -Size D ($) 1 Treatment Response Procedure Tolerated Well Pain Scale: 0-10 Numeric Is Patient Pain Free? Yes WC - Visit Discharge Discharge Condition Stable Ambulatory Status Ambulatory Transportation Private Auto Medication Reconcilliation completed & No provided to patient/care provider Clinical Summary of Care Provided Yes Charges/Coding Visit Charges Office Visits / Consults: [id number] OV L4 New Procedures Integumentary [id number]: [id number] Carla subq tissue 20 sq cm/< Assessment/Plan Assessment/Plan (1) 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: CODE(S): L97.312 - Non-pressure chronic ulcer of right ankle with fat layer exposed (2) Insulin dependent diabetes mellitus: (3) Tobacco abuse: CODE(S): Z72.0 - Tobacco use PLAN: Plan Chronic nonhealing right lateral ankle ulcer. Debridement done as documented above, procedure was well-tolerated. Cultures taken. Due to chronicity and as above she has used a calcium alginate and collagen dressing over the year/ months without any significant improvement, application started for skin substitute. Venous and arterial studies also ordered in addition to CBC, CMP, CRP, ESR, A1c and prealbumin. Will review. Daily, cover with Adaptic and foam dressing to help with offloading. Change daily or more if needed. Smoking cessation very strongly recommended and optimal diabetes control also discussed, she voiced understanding. Adequate protein intake also discussed. Follow-up in a week or sooner if needed. This note was generated with [employer] dictation software. It may contain incorrect words, spelling, and punctuation that were not noted in checking the note before signing.
[2022-11-29 09:28] VITALS: BP 98/46; PULSE 77
--- NOTE | 2022-11-29 13:02 | PN.PCM_ITS ---
History of Present Illness Date of Service: 11/29/22 Chief Complaint: Non healing right ankle ulcer History of Wound: Ms. Lam is a 62-year-old who was referred to this facility due to nonhealing right lateral ankle ulcer. Noted a year ago, started out as a bullae and subsequently opened up. She states that over the years, she has had alginate and collagen dressings done at her facility without any significant improvement. History of diabetes mellitus, she is not sure of her most recent A1c but states that it has ranged from 8-13. Also history of tobacco use, smokes daily. There is significant pain around the ulcer but she denies otherwise significant leg pain. Does not wear compression. Sleep sedentary but sleeps in the bed. She feels well otherwise, no chills, fever, nausea, vomiting or change in bowel habit reported. Progress of Wound: No acute concerns at this time. Now approved for EpiFix. Objective Data Objective Data Vital Signs: Vital Signs Temp Pulse Resp BP 97.7 F L 77 20 H 98/46 L 11/22/22 08:59 11/29/22 09:28 11/22/22 08:59 11/29/22 09:28 Lab / Micro Data Micro: Microbiology 11/22/22 09:45 Wound Abcess - Ankle Gram Stain - Final 11/22/22 09:45 Wound Abcess - Ankle Wound Culture - Final Klebsiella pneumoniae sp pneum Proteus mirabilis 11/22/22 09:45 Wound Abcess - Ankle Anaerobic Culture - Final No anaerobic bacteria isolated. Charges/Coding Procedures Integumentary 150xxx-152xx: [id number] Skin sub graft trnk/arm/leg Physical Exam Const alert, oriented x3 and no apparent distress General Appearance: cooperative, comfortable and well kempt HEENT normocephalic and head/scalp atraumatic Eyes EOMs intact bilaterally General Eye: normal appearance of both eyes Neck full ROM and supple General: normal visual inspection Resp normal respiratory effort Effort and Inspection: able to speak in complete sentences Extremity General Extremity: edema Skin Wounds: wounds noted Neuro oriented x3, CN's II-XII intact bilaterally and moves all extremities Psych mental status grossly normal, thought process normal, cooperative and affect normal Debridement Note Debridement Note Wound debrided: Right lateral foot/ankle Type of Debridement: Excisional debridement Anesthesia Used: 5% Lidocaine Gel Depth: Down to and including healthy tissue and in the subcutaneous layer Percentage of wound debrided: 100 Instrument Used: 5mm curette Tissue Removed: Slough and devitalized tissue Severity: Fat Layer Exposed Amount of bleeding with debridement: Mild Bleeding Controlled with: Pressure Patient tolerated procedure: Patient tolerated procedure well Post-Debridement Measurements and Additional Note: Post-Debridement Measurements/Treatment RUY - Nurse 1 - General Ulcer Assessment Start: 11/22/22 08:59 Freq: Status: Active Protocol: CLOVIS Activity Type Activity Date Activity User E-sign Co-sign Detail Recorded Client Recorded Date Recorded By Document 11/22/22 08:59 DL [id number] 11/22/22 09:12 DL Document 11/29/22 09:28 BM [id number] 11/29/22 09:43 BMF 11/22/22 11/29/22 08:59 09:28 - Today's Visit Information Type of service Initial Visit Follow-up Visit (Physician/SENIOR TECHNICAL SUPPORT ANALYST ) Arrival Mode Wheelchair Wheelchair Transfer Assistance Manual Other Transfer Assist (Other) x1 2 Patient Identification Verified (Name & Yes Yes ) Patient Requires Transmission-Based No No Precautions Finger Stick Blood Sugar(mg/dl) (if 172 indicated): Blood Sugar Stated by Patient Vital Signs Temperature (97.8 F-99.1 F) 97.7 F L Temperature Source Temporal Pulse Rate (60-100) 77 77 Pulse Location Monitor Monitor Respiratory Rate (12-18) 20 H Respiratory rate source Observation Blood Pressure (90/60-120/80) 115/58 L 98/46 L Blood Pressure Mean (mm Hg) 77 63 Source Monitor Monitor Position Sitting Blood Pressure Location Right Arm History Since Last Visit- (Skip if this is Patient's initial visit) Have you changed medications since your No last visit? Any new allergies or adverse reactions No Had a fall/change in ADL's that may No increase risk of falls Signs or symptoms of abuse and/or No neglect since last visit Have you been in the hospital since your No last visit? Has dressing in place as prescribed Yes Has compression in place as prescribed Yes Has offloadiing in place as prescribed N/A Experienced any changes in pain level or No management Left Footwear Slipper Right Footwear Slipper Pain Scale: 0-10 Numeric Is Patient Pain Free? Yes Yes Lower Extremity Assessment/ Foot Assessment/ Toe Nail Assessment Left -Posterior Tibial Palpable Yes -Dorsalis Pedis Palpable Yes -Extremity Color Hyperpigmented -Hair Growth on Legs No -Hair Growth on Toes No -Temperature of Extremity Warm -Capillary Refill Greater than 3 Seconds -Dependent Rubor No -Blanched when Elevated No -Lipodermatosclerosis No -Other Deformity No -Prior Foot Ulcer No -Charcot Joint No -Prior Amputation No -Thick Yes -Discolored Yes -Deformed No -Improper Length & Hygeine No Right -Posterior Tibial Palpable Yes -Dorsalis Pedis Palpable Yes -Extremity Color Hyperpigmented -Hair Growth on Legs No -Hair Growth on Toes No -Temperature of Extremity Warm -Capillary Refill Greater than 3 Seconds -Dependent Rubor No -Blanched when Elevated No -Lipodermatosclerosis No -Other Deformity No -Prior Foot Ulcer No -Charcot Joint No -Prior Amputation No -Thick No -Discolored Yes -Deformed No -Improper Length & Hygeine No Communication Assessment Preferred language Brazilian Able to Read Yes Able to Write Yes Communication Tools None Right Hearing Abillity Normal Left Hearing Abillity Normal Visual Assistive Devices Glasses Teaching Assessment Preferences Verbal,Written, Demonstration Barriers to Learning None Readiness To Learn Fair Willingness to Engage in Self Management Med Activies Readiness to Engage in Self Management Med Activities Anxiety Level Calm Cooperation Cooperative Perception Coherent Interest in Health Problem Asks Questions Education Importance Acknowledges Need Does Patient Smoke tobacco or other Yes substances Smoking Status Current every day smoker Is Patient Diabetic Yes Functional Assessment Recent Decline in Ability to Perform Denies Any Declines Culture/Denominational/News Agent Cultural/Denominational Needs that may affect No Treatment Plan Would you allow our hospital pin chaser to No meet you for the purpose of spiritual/ emotional support? News Agent to contact place of restorationism No Teaching: Wound Center Discharge Instructions -Person Taught Patient Dressing Your Wound -Person Taught Patient *Welcome to the Wound Center -Person Taught Patient WC - Nurse 1 - General Ulcer Measurement Start: 11/22/22 08:59 Freq: Status: Active Protocol: Activity Type Activity Date Activity User E-sign Co-sign Detail Recorded Client Recorded Date Recorded By Document 11/22/22 08:59 DL [id number] 11/22/22 09:12 DL Document 11/29/22 09:28 BMF [id number] 11/29/22 09:43 BMF 11/22/22 11/29/22 08:59 09:28 Wound Center Nurse 1 #1 R Lat Ankle -Combined with other wound No -Current Size (cm) - Length 1.8 1.6 -Current Size (cm) - Width 1.8 1.6 -Current Size (cm) - Depth 0.5 0.3 -Total Square Cm 3.24 2.56 -Date of Last Picture (Recall this 11/29/22 field) -Photo Taken Yes Yes -Epithelialization None Present -Tunneling No -Undermining/Tunneling No -Circular Undermining No -Classification - Thickness Full Thickness without Exposed Support Structure -Exudate Amt Medium Medium -Exudate Type Serosanguineous Serosanguineous -Wound Margin Thickened Distinct, Outline Attached -Granulation Amt Large (67-100%) Medium (34-66%) -Granulation Quality Red Red -Slough/Fibrin Yes -Necrosis Amt Small (1-33%) Medium (34-66%) -Necrotic Tissue Type Adherent Slough Adherent Slough -Structure Exposed N/A -Texture (Lori-wound Skin Appearance) Scarring Assessed, Scarring -Moisture (Lori-wound Skin Appearance) Maceration Assessed, Maceration -Color (Lori-wound Skin Appearance) No Abnormality Assessed -Temperature (Lori-wound Skin No Abnormality No Abnormality Appearance) (Pt Warm) (Pt Warm) -Tenderness on Palpation (Lori-wound No Yes Skin Appearance) -Ulcer Cleansing Soap and Water Soap and Water -Foul Odor after Cleansing No No -Anesthetic Used 5% Lidocaine 5% Lidocaine Gel Gel Lower Limb Edema Present Yes Right Calf (cm) 39 38.2 Right Ankle (cm) 25.5 24.8 Left Calf (cm) 39.5 Left Ankle (cm) 23 WC - Nurse 2 - General Ulcer CM Notes Start: 11/22/22 08:59 Freq: Status: Active Protocol: Activity Type Activity Date Activity User E-sign Co-sign Detail Recorded Client Recorded Date Recorded By Document 11/22/22 09:38 MW [id number] 11/22/22 09:48 MW Document 11/29/22 09:52 [id number] 11/29/22 10:00 JANICE 11/22/22 11/29/22 09:38 09:52 Wound Center Nurse 2 #1 R Lat Ankle -Time 09:40 09:52 -Correct Patient Yes Yes -Correct Side, Site, Position Yes Yes -Correct Procedure Yes Yes -Procedure Performed Yes Yes -Type of Procedure Debridement Debridement -Clinical Debridement Subcutaneous Subcutaneous -Tissue Removed Subcutaneous Subcutaneous -Post Debridement (cm) - Length 2.0 2.0 -Post Debridement (cm) - Width 2.0 1.5 -Post Debridement (cm) - Depth 0.1 0.2 -Total Square (Post) (cm) 4.00 3.00 -Area of Debridement (cm) - Length 2.0 2.0 -Area of Debridement (cm) - Width 2.0 1.5 -Total Square (Area) (cm) 4.00 3.00 -Tunneling No No -Undermining/Tunneling No No -Circular Undermining No No -Wound/Ulcer Outcome Not Healed Not Healed -Ulcer Cleansing Rinsed/ Rinsed/ Irrigated with Irrigated with Saline Saline -Foul Odor after Cleansing No No -Bioengineered Tissue No Yes -Type of Bioengineered Tissue Epifix -Expiration Date 06/14/27 -Product Lot Number [id number] -Percent Used 100 -Lot number of Saline Used [id number] -Bleeding Controlled with Pressure Pressure -Treatment Response Procedure Procedure Tolerated Well Tolerated Well -Offloading No No -Debridement - Subq, 1st 20sq cm Yes No -Apply Skin Sub - 1st 25 sq cm - Feet 1 -Epifix (per sq cm) 4 Pain Scale: 0-10 Numeric Is Patient Pain Free? Yes Yes - Nurse 3 - General Ulcer D/C NN Start: 11/22/22 08:59 Freq: Status: Active Protocol: Activity Type Activity Date Activity User E-sign Co-sign Detail Recorded Client Recorded Date Recorded By Document 11/22/22 10:16 RB [id number] 11/22/22 10:17 RB Document 11/29/22 10:09 [facility] [id number] 11/29/22 10:10 [facility] 11/22/22 11/29/22 10:16 10:09 Wound Care Center Nurse 3 #1 R Lat Ankle -Ulcer Cleansing Rinsed/ Irrigated with Saline -Primary Dressing Applied NonAdherent Mepilex Border Contact Layer, Promogran, Mepilex Border -Other Dressing EPIFIX -Mepilex Border 1 1 -Promogran 1 Right -Tubular Bandage Single Layer -Size of Tubigrip Used Size D Size D -Size D ($) 1 1 Treatment Response Procedure Procedure Tolerated Well Tolerated Well Pain Scale: 0-10 Numeric Is Patient Pain Free? Yes Yes WC - Visit Discharge Discharge Condition Stable Stable Ambulatory Status Ambulatory Wheelchair Transportation Private Auto ECF Medication Reconcilliation completed & No provided to patient/care provider Clinical Summary of Care Provided Yes Facility Type Acid Treater Care Facility Assessment/Plan Assessment/Plan (1) 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: CODE(S): L97.312 - Non-pressure chronic ulcer of right ankle with fat layer exposed (2) Insulin dependent diabetes mellitus: (3) Tobacco abuse: CODE(S): Z72.0 - Tobacco use PLAN: Plan Debridement done as documented above, procedure was well-tolerated. Labs and cultures reviewed. Normal WBC, CRP and ESR. Cultures grew Proteus and Kl ebsiella sensitive to ciprofloxacin. Normal kidney function. Prescription for ciprofloxacin 500 mg twice daily for 1 week sent. Also now approved for EpiFix, does not appear clinically infected. Initial application of EpiFix done using 100% of product. Moistened with saline, covered with Adaptic touch and secured with Steri-Strips. Leave dressing in place for a week. May change outer dressi ng if needed. Prealbumin is low, recommend protein supplements twice daily. Her questions were answered and she was advised to call with any further questions or concerns. Follow-up in a week or sooner if needed. This note was generated with [employer] dictation software. It may contain incorrect words, spelling, and punctuation that were not noted in checking the note before signing.
--- NOTE | 2022-12-04 13:29 | VDLE_ITS ---
Reason For Study: Bilateral LE edema RIGHT LEFT CFV is compressible, spontaneous, phasic, CFV is compressible, spontaneous, phasic, competent and demonstrates normal competent, and demonstrates normal augmentation. augmentation. FV is compressible, spontaneous, phasic, FV is compressible, spontaneous, phasic, competent and demonstrates normal competent and demonstrates normal augmentation. augmentation. POP V is compressible, spontaneous, phasic, POP V is compressible, spontaneous, phasic, competent and demonstrates normal competent and demonstrates normal augmentation. augmentation. T/P Trunk is compressible. T/P Trunk is compressible. PTV is compressible. PTV is compressible. RT PerV is compressible. LT PerV is compressible. SFJ is competent and measures 0.92 x 0.91 cm. SFJ is competent and measures 0.62 x 0.65 cm. GSV proximal thigh measures 0.42 x 0.41 cm. GSV proximal thigh measures 0.40 x 0.40 cm. GSV above knee is competent. GSV above knee is competent. GSV at knee measures 0.47 x 0.44 cm. GSV at knee measures 0.30 x 0.31 cm. GSV below knee is INCOMPETENT for greater GSV below knee is INCOMPETENT for greater than 0.5 seconds. than 0.5 seconds. SSV proximal calf is competent and measures SSV proximal calf is competent and measures 0.17 x 0.18 cm. 0.12 x 0.12 cm. Procedure This is a venous duplex using B-mode, color flow and spectral Doppler. Exam performed in department. Patient was scanned in reverse Trendelenburg position during reflux assessment. A preliminary report was called and/or faxed to [facility]. VL/Venous Duplex US - Gunnar Extrem Interpretation Summary Deep veins of the lower extremities are bilaterally patent and compressible seg mentally. There is no evidence of deep vein thrombosis on either side. Valvular competence appears in tact within the proximal deep venous systems bilaterally. The great saphenous veins appear bila terally patent and compressible segmentally. Sapheno-femoral junctions are bilaterally competent . The right great saphenous vein appears competent above the knee. The right great saphenous vein appears incompetent below the knee. The left great saphenous vein appears competent above the knee. The left great saphenous vein appears incompetent below the knee. Small saphenous veins are pa tent and competent bilaterally. Ordering Physician: Chilango Laughlin Referring Physician: Bianca Irwin Performed By: Dary Castano RVT
--- NOTE | 2022-12-04 13:29 | ART_ITS ---
Reason For Study: Right lateral ankle ulcer Procedure A bilateral lower extremity continuous wave Doppler with analog waveform analysis,segmental pressures,and ankle brachial indexes without exercise. Left Segmental Pressures Left brachial= 119mmHg. Left posterior tibial artery = 135mmHg. Left dorsalis pedis artery = 126mmHg. Left digit = 87 mmHg. The left dorsalis pedis waveforms are triphasic. The left posterior tibial artery waveforms are triphasic. Right Segmental Pressures Right brachial= 121mmHg. Right thigh = >254mmHg. Right calf = 116mmHg. Right posterior tibial artery = 113mmHg. Right dorsalis pedis artery = 111mmHg. Right digit = 73 mmHg. The right dorsalis pedis waveforms are triphasic. The right posterior tibial artery waveforms are triphasic. Indices The right ankle brachial index by the dorsalis pedis is 0.92. The right ankle brachial index by the posterior tibial artery is 0.93. The right digital-brachial index is 0.60. The left ankle brachial index by the dorsalis pedis is 1.04. The left ankle brachial index by the posterior tibial artery is 1.12. The left digital-brachial index is 0.72. VL/Lower Ext Art Exam w/o Exercis Interpretation Summary Triphasic Doppler waveforms are noted at ankle level bilaterally. Pulse-volume recordings appear satisfactory at all levels bilaterally. Resting ankle-brachial indices are norm al bilaterally. The right digital-brachial index is mildly diminished. The left digital-brachial in dex is normal. Arterial flow appears normal at ankle level bilaterally, as well as at digital level on the left. There is evidence of mild arterial occlusive disease at digital level on the ri ght. Ordering Physician: Chilango Laughlin Referring Physician: Bianca Irwin Performed By: Dary Castano RVT
[2022-12-06 09:36] VITALS: BP 122/72; PULSE 73; RESP 18; TEMP 35.9
--- NOTE | 2022-12-06 10:38 | PCM.WC.PN ---
History of Present Illness Date of Service: 12/06/22 Chief Complaint: Non healing right ankle ulcer History of Wound: Ms. Lam is a 62-year-old who was referred to this facility due to nonhealing right lateral ankle ulcer. Noted a year ago, started out as a bullae and subsequently opened up. She states that over the years, she has had alginate and collagen dressings done at her facility without any significant improvement. History of diabetes mellitus, she is not sure of her most recent A1c but states that it has ranged from 8-13. Also history of tobacco use, smokes daily. There is significant pain around the ulcer but she denies otherwise significant leg pain. Does not wear compression. Sleep sedentary but sleeps in the bed. She feels well otherwise, no chills, fever, nausea, vomiting or change in bowel habit reported. Progress of Wound: Has had 1 application of EpiFix. Improving. Objective Data Objective Data Vital Signs: Vital Signs Temp Pulse Resp BP 96.6 F L 73 18 122/72 H 12/06/22 09:36 12/06/22 09:36 12/06/22 09:36 12/06/22 09:36 Lab / Micro Data Micro: Microbiology 11/22/22 09:45 Wound Abcess - Ankle Gram Stain - Final 11/22/22 09:45 Wound Abcess - Ankle Wound Culture - Final Klebsiella pneumoniae sp pneum Proteus mirabilis 11/22/22 09:45 Wound Abcess - Ankle Anaerobic Culture - Final No anaerobic bacteria isolated. Charges/Coding Procedures Integumentary 150xxx-152xx: 97057 Skin sub graft trnk/arm/leg Physical Exam Const alert, oriented x3 and no apparent distress General Appearance: cooperative, comfortable and well kempt HEENT normocephalic and head/scalp atraumatic Eyes EOMs intact bilaterally General Eye: normal appearance of both eyes Neck full ROM and supple General: normal visual inspection Resp normal respiratory effort Effort and Inspection: able to speak in complete sentences Extremity General Extremity: edema Skin Wounds: wounds noted Neuro oriented x3, CN's II-XII intact bilaterally and moves all extremities Psych mental status grossly normal, thought process normal, cooperative and affect normal Debridement Note Debridement Note Wound debrided: Right lateral foot/ankle Type of Debridement: Excisional debridement Anesthesia Used: 5% Lidocaine Gel Depth: Down to and including healthy tissue and in the subcutaneous layer Percentage of wound debrided: 100 Instrument Used: 5mm curette Tissue Removed: Slough and devitalized tissue Severity: Fat Layer Exposed Amount of bleeding with debridement: Mild Bleeding Controlled with: Pressure Patient tolerated procedure: Patient tolerated procedure well Post-Debridement Measurements and Additional Note: Post-Debridement Measurements/Treatment WC - Nurse 1 - General Ulcer Assessment Start: 11/22/22 08:59 Freq: Status: Active Protocol: CLOVIS Activity Type Activity Date Activity User E-sign Co-sign Detail Recorded Client Recorded Date Recorded By Document 11/22/22 08:59 DL [id number] 11/22/22 09:12 DL Document 11/29/22 09:28 [facility] [id number] 11/29/22 09:43 BMF Document 12/06/22 09:36 DL [id number] 12/06/22 09:46 DL 11/22/22 11/29/22 12/06/22 08:59 09:28 09:36 WC - Today's Visit Information Type of service Initial Visit Follow-up Visit Follow-up Visit (Physician/ELECTRONIC SECURITY TECHNICIAN (Physician/ELECTRONIC SECURITY TECHNICIAN ) ) Arrival Mode Wheelchair Wheelchair Wheelchair Transfer Assistance Manual Other Manual Transfer Assist (Other) x1 2 x1 Patient Identification Verified (Name & Yes Yes Yes ) Patient Requires Transmission-Based No No No Precautions Finger Stick Blood Sugar(mg/dl) (if 172 300 indicated): Blood Sugar Stated by Stated by Patient Patient Vital Signs Temperature (97.8 F-99.1 F) 97.7 F L 96.6 F L Temperature Source Temporal Temporal Pulse Rate (60-100) 77 77 73 Pulse Location Monitor Monitor Monitor Respiratory Rate (12-18) 20 H 18 Respiratory rate source Observation Observation Blood Pressure (90/60-120/80) 115/58 L 98/46 L 122/72 H Blood Pressure Mean (mm Hg) 77 63 88 Source Monitor Monitor Monitor Position Sitting Blood Pressure Location Right Arm History Since Last Visit- (Skip if this is Patient's initial visit) Have you changed medications since your No No last visit? Any new allergies or adverse reactions No No Had a fall/change in ADL's that may No No increase risk of falls Signs or symptoms of abuse and/or No No neglect since last visit Have you been in the hospital since your No No last visit? Has dressing in place as prescribed Yes Yes Has compression in place as prescribed Yes Yes Has offloadiing in place as prescribed N/A Yes Experienced any changes in pain level or No No management Left Footwear Slipper Right Footwear Slipper Pain Scale: 0-10 Numeric Is Patient Pain Free? Yes Yes Yes Lower Extremity Assessment/ Foot Assessment/ Toe Nail Assessment Left -Posterior Tibial Palpable Yes -Dorsalis Pedis Palpable Yes -Extremity Color Hyperpigmented -Hair Growth on Legs No -Hair Growth on Toes No -Temperature of Extremity Warm -Capillary Refill Greater than 3 Seconds -Dependent Rubor No -Blanched when Elevated No -Lipodermatosclerosis No -Other Deformity No -Prior Foot Ulcer No -Charcot Joint No -Prior Amputation No -Thick Yes -Discolored Yes -Deformed No -Improper Length & Hygeine No Right -Posterior Tibial Palpable Yes -Dorsalis Pedis Palpable Yes -Extremity Color Hyperpigmented -Hair Growth on Legs No -Hair Growth on Toes No -Temperature of Extremity Warm -Capillary Refill Greater than 3 Seconds -Dependent Rubor No -Blanched when Elevated No -Lipodermatosclerosis No -Other Deformity No -Prior Foot Ulcer No -Charcot Joint No -Prior Amputation No -Thick No -Discolored Yes -Deformed No -Improper Length & Hygeine No Communication Assessment Preferred language Yoruba Able to Read Yes Able to Write Yes Communication Tools None Right Hearing Abillity Normal Left Hearing Abillity Normal Visual Assistive Devices Glasses Teaching Assessment Preferences Verbal,Written, Demonstration Barriers to Learning None Readiness To Learn Fair Willingness to Engage in Self Management Med Activies Readiness to Engage in Self Management Med Activities Anxiety Level Calm Cooperation Cooperative Perception Coherent Interest in Health Problem Asks Questions Education Importance Acknowledges Need Does Patient Smoke tobacco or other Yes substances Smoking Status Current every day smoker Is Patient Diabetic Yes Functional Assessment Recent Decline in Ability to Perform Denies Any Declines Culture/Mosque/Fire Dispatcher Cultural/Mosque Needs that may affect No Treatment Plan Would you allow our hospital senior solutions engineer to No meet you for the purpose of spiritual/ emotional support? Fire Dispatcher to contact place of restorationism No Teaching: Wound Center Discharge Instructions -Person Taught Patient Dressing Your Wound -Person Taught Patient *Welcome to the Wound Center -Person Taught Patient WC - Nurse 1 - General Ulcer Measurement Start: 11/22/22 08:59 Freq: Status: Active Protocol: Activity Type Activity Date Activity User E-sign Co-sign Detail Recorded Client Recorded Date Recorded By Document 11/22/22 08:59 [id number] 11/22/22 09:12 DL Document 11/29/22 09:28 [facility] [id number] 11/29/22 09:43 [facility] Document 12/06/22 09:36 [id number] 12/06/22 09:46 DL 11/22/22 11/29/22 12/06/22 08:59 09:28 09:36 Wound Center Nurse 1 #1 R Lat Ankle -Combined with other wound No -Current Size (cm) - Length 1.8 1.6 1.7 -Current Size (cm) - Width 1.8 1.6 1.3 -Current Size (cm) - Depth 0.5 0.3 0.2 -Total Square Cm 3.24 2.56 2.21 -Date of Last Picture (Recall this 11/29/22 field) -Photo Taken Yes Yes Yes -Epithelialization None Present -Tunneling No -Undermining/Tunneling No -Circular Undermining No -Classification - Thickness Full Thickness without Exposed Support Structure -Exudate Amt Medium Medium Small -Exudate Type Serosanguineous Serosanguineous Serosanguineous -Wound Margin Thickened Distinct, Distinct, Outline Outline Attached Attached -Granulation Amt Large (67-100%) Medium (34-66%) Large (67-100%) -Granulation Quality Red Red Pale,[place] -Slough/Fibrin Yes -Necrosis Amt Small (1-33%) Medium (34-66%) Small (1-33%) -Necrotic Tissue Type Adherent Slough Adherent Slough Adherent Slough -Structure Exposed N/A N/A -Texture (Lori-wound Skin Appearance) Scarring Assessed, Scarring Scarring -Moisture (Lori-wound Skin Appearance) Maceration Assessed, No Abnormality Maceration -Color (Lori-wound Skin Appearance) No Abnormality Assessed Hemosiderin Staining -Temperature (Lori-wound Skin No Abnormality No Abnormality No Abnormality Appearance) (Pt Warm) (Pt Warm) (Pt Warm) -Tenderness on Palpation (Lori-wound No Yes No Skin Appearance) -Ulcer Cleansing Soap and Water Soap and Water Soap and Water -Foul Odor after Cleansing No No No -Anesthetic Used 5% Lidocaine 5% Lidocaine 5% Lidocaine Gel Gel Gel Lower Limb Edema Present Yes Right Calf (cm) 39 38.2 38 Right Ankle (cm) 25.5 24.8 24 Left Calf (cm) 39.5 Left Ankle (cm) 23 WC - Nurse 2 - General Ulcer CM Notes Start: 11/22/22 08:59 Freq: Status: Active Protocol: Activity Type Activity Date Activity User E-sign Co-sign Detail Recorded Client Recorded Date Recorded By Document 11/22/22 09:38 MW [id number] 11/22/22 09:48 MW Document 11/29/22 09:52 [id number] 11/29/22 10:00 JF Document 12/06/22 10:26 MW [id number] 12/06/22 10:37 MW 11/22/22 11/29/22 12/06/22 09:38 09:52 10:26 Wound Center Nurse 2 #1 R Lat Ankle -Time 09:40 09:52 10:33 -Correct Patient Yes Yes Yes -Correct Side, Site, Position Yes Yes Yes -Correct Procedure Yes Yes Yes -Procedure Performed Yes Yes Yes -Type of Procedure Debridement Debridement Debridement -Clinical Debridement Subcutaneous Subcutaneous Subcutaneous -Tissue Removed Subcutaneous Subcutaneous Subcutaneous -Post Debridement (cm) - Length 2.0 2.0 1.5 -Post Debridement (cm) - Width 2.0 1.5 1.1 -Post Debridement (cm) - Depth 0.1 0.2 0.2 -Total Square (Post) (cm) 4.00 3.00 1.65 -Area of Debridement (cm) - Length 2.0 2.0 1.5 -Area of Debridement (cm) - Width 2.0 1.5 1.1 -Total Square (Area) (cm) 4.00 3.00 1.65 -Tunneling No No No -Undermining/Tunneling No No No -Circular Undermining No No No -Wound/Ulcer Outcome Not Healed Not Healed Not Healed -Ulcer Cleansing Rinsed/ Rinsed/ Rinsed/ Irrigated with Irrigated with Irrigated with Saline Saline Saline -Foul Odor after Cleansing No No No -Bioengineered Tissue No Yes Yes -Type of Bioengineered Tissue Epifix Epifix -Expiration Date 06/14/27 08/15/27 -Product Lot Number [id number] -Percent Used 100 100 -Lot number of Saline Used [id number] -Bleeding Controlled with Pressure Pressure Pressure -Treatment Response Procedure Procedure Procedure Tolerated Well Tolerated Well Tolerated Well -Offloading No No No -Debridement - Subq, 1st 20sq cm Yes No No -Apply Skin Sub - 1st 25 sq cm - Legs 1 -Apply Skin Sub - 1st 25 sq cm - Feet 1 -Epifix (per sq cm) 4 4 Pain Scale: 0-10 Numeric Is Patient Pain Free? Yes Yes Yes - Nurse 3 - General Ulcer D/C NN Start: 11/22/22 08:59 Freq: Status: Active Protocol: Activity Type Activity Date Activity User E-sign Co-sign Detail Recorded Client Recorded Date Recorded By Document 11/22/22 10:16 [id number] 11/22/22 10:17 RB Document 11/29/22 10:09 [facility] [id number] 11/29/22 10:10 [facility] 11/22/22 11/29/22 10:16 10:09 Wound Care Center Nurse 3 #1 R Lat Ankle -Ulcer Cleansing Rinsed/ Irrigated with Saline -Primary Dressing Applied NonAdherent Mepilex Border Contact Layer, Promogran, Mepilex Border -Other Dressing EPIFIX -Mepilex Border 1 1 -Promogran 1 Right -Tubular Bandage Single Layer -Size of Tubigrip Used Size D Size D -Size D ($) 1 1 Treatment Response Procedure Procedure Tolerated Well Tolerated Well Pain Scale: 0-10 Numeric Is Patient Pain Free? Yes Yes - Visit Discharge Discharge Condition Stable Stable Ambulatory Status Ambulatory Wheelchair Transportation Private Auto ECF Medication Reconcilliation completed & No provided to patient/care provider Clinical Summary of Care Provided Yes Facility Type Snf Care Facility Assessment/Plan Assessment/Plan (1) 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: CODE(S): L97.312 - Non-pressure chronic ulcer of right ankle with fat layer exposed (2) Insulin dependent diabetes mellitus: (3) Tobacco abuse: CODE(S): Z72.0 - Tobacco use PLAN: Plan Debridement done as documented above, procedure was well-tolerated. Second application of EpiFix done using 100% of product. Moistened with saline, covered with Adaptic touch and secured with Steri-Strips. Leave dressing in place for a week. May change outer dressing if needed. Prealbumin is low, recommend protein supplements twice daily. Her questions were answered and she was advised to call with any further questions or concerns. Follow-up in a week or sooner if needed. This note was generated with Musikkiation software. It may contain incorrect words, spelling, and punctuation that were not noted in checking the note before signing.
== END 2022-12-12 23:59 | disposition home or self-care (01) ==
LOC: WC 09:45
PROVIDERS: PCP Internal Medicine; Referring Provider Internal Medicine; Visit Provider Internal Medicine
DX: E11.622 Type 2 diabetes mellitus with other skin ulcer (principal); F25.9 Schizoaffective disorder, unspecified; L97.312 Non-pressure chronic ulcer of right ankle with fat layer exposed; E11.40 Type 2 diabetes mellitus with diabetic neuropathy, unspecified; Z79.4 Long term (current) use of insulin; Z72.0 Tobacco use; L90.5 Scar conditions and fibrosis of skin; I10 Essential (primary) hypertension; E78.5 Hyperlipidemia, unspecified; R60.0 Localized edema
CPT/HCPCS: 11042; 15271; 15275; 87070; 87075; 87077; 87186; 87205; 93923; 93970; 99213; Q4186; G0463

== ENCOUNTER 2023-01-11 13:15 | Outpatient (RCR) | payer MEDICARE, MEDICAID, SELFPAY ==
[2022-12-13 00:11] VITALS: BP 122/72; PULSE 73; RESP 18; TEMP 35.9
[2022-12-13 09:39] VITALS: BP 125/57; PULSE 63; RESP 18; TEMP 36.1
--- NOTE | 2022-12-13 10:17 | PN.PCM_ITS ---
History of Present Illness Date of Service: 12/13/22 Chief Complaint: Non healing right ankle ulcer History of Wound: Ms. Lam is a 62-year-old who was referred to this facility due to nonhealing right lateral ankle ulcer. Noted a year ago, started out as a bullae and subsequently opened up. She states that over the years, she has had alginate and collagen dressings done at her facility without any significant improvement. History of diabetes mellitus, she is not sure of her most recent A1c but states that it has ranged from 8-13. Also history of tobacco use, smokes daily. There is significant pain around the ulcer but she denies otherwise significant leg pain. Does not wear compression. Sleep sedentary but sleeps in the bed. She feels well otherwise, no chills, fever, nausea, vomiting or change in bowel habit reported. Progress of Wound: Has had two Epifix applications so far. No new concerns at this time. Right lower extremity edema. Objective Data Objective Data Vital Signs: Vital Signs Temp Pulse Resp BP 97 F L 63 18 125/57 H 12/13/22 09:39 12/13/22 09:39 12/13/22 09:39 12/13/22 09:39 Charges/Coding Procedures Integumentary 150xxx-152xx: 67786 Skin sub graft trnk/arm/leg Physical Exam Const alert, oriented x3 and no apparent distress General Appearance: cooperative, comfortable and well kempt HEENT normocephalic and head/scalp atraumatic Eyes EOMs intact bilaterally General Eye: normal appearance of both eyes Neck full ROM and supple General: normal visual inspection Resp normal respiratory effort Effort and Inspection: able to speak in complete sentences Extremity General Extremity: edema Skin Wounds: wounds noted Neuro oriented x3, CN's II-XII intact bilaterally and moves all extremities Psych mental status grossly normal, thought process normal, cooperative and affect normal Debridement Note Debridement Note Wound debrided: Right lateral foot/ankle Type of Debridement: Excisional debridement Anesthesia Used: 5% Lidocaine Gel Depth: Down to and including healthy tissue and in the subcutaneous layer Percentage of wound debrided: 100 Instrument Used: 5mm curette Tissue Removed: Slough and devitalized tissue Severity: Fat Layer Exposed Amount of bleeding with debridement: Mild Bleeding Controlled with: Pressure Patient tolerated procedure: Patient tolerated procedure well Post-Debridement Measurements and Additional Note: Post-Debridement Measurements/Treatment WC - Nurse 1 - General Ulcer Assessment Start: 12/13/22 09:39 Freq: Status: Active Protocol: CLOVIS Activity Type Activity Date Activity User E-sign Co-sign Detail Recorded Client Recorded Date Recorded By Document 12/13/22 09:39 [facility] [id number] 12/13/22 09:42 [facility] 12/13/22 09:39 WC - Today's Visit Information Type of service Follow-up Visit (Physician/CASH RECONCILIATION SPECIALIST ) Arrival Mode Wheelchair Transfer Assistance None Patient Identification Verified (Name & Yes ) Patient Requires Transmission-Based No Precautions Finger Stick Blood Sugar(mg/dl) (if 146 indicated): Blood Sugar Stated by Patient Vital Signs Temperature (97.8 F-99.1 F) 97 F L Temperature Source Temporal Pulse Rate (60-100) 63 Pulse Location Monitor Respiratory Rate (12-18) 18 Respiratory rate source Observation Blood Pressure (90/60-120/80) 125/57 H Blood Pressure Mean (mm Hg) 79 Source Monitor History Since Last Visit- (Skip if this is Patient's initial visit) Have you changed medications since your No last visit? Any new allergies or adverse reactions No Had a fall/change in ADL's that may No increase risk of falls Signs or symptoms of abuse and/or No neglect since last visit Have you been in the hospital since your No last visit? Has dressing in place as prescribed Yes Has compression in place as prescribed Yes Has offloadiing in place as prescribed Yes Experienced any changes in pain level or No management Pain Scale: 0-10 Numeric Is Patient Pain Free? Yes - Nurse 1 - General Ulcer Measurement Start: 12/13/22 09:39 Freq: Status: Active Protocol: Activity Type Activity Date Activity User E-sign Co-sign Detail Recorded Client Recorded Date Recorded By Document 12/13/22 09:39 [facility] [id number] 12/13/22 09:42 [facility] 12/13/22 09:39 Wound Center Nurse 1 #1 R Lat Ankle -Current Size (cm) - Length 1.3 -Current Size (cm) - Width 1 -Current Size (cm) - Depth 0.2 -Total Square Cm 1.3 -Photo Taken Yes -Exudate Amt Medium -Exudate Type Serosanguineous -Wound Margin Distinct, Outline Attached -Granulation Amt Large (67-100%) -Granulation Quality Red -Necrosis Amt Small (1-33%) -Necrotic Tissue Type Adherent Slough -Structure Exposed N/A -Texture (Lori-wound Skin Appearance) Scarring -Moisture (Lori-wound Skin Appearance) Maceration -Color (Lori-wound Skin Appearance) Hemosiderin Staining -Temperature (Lori-wound Skin No Abnormality Appearance) (Pt Warm) -Tenderness on Palpation (Lori-wound No Skin Appearance) -Ulcer Cleansing Soap and Water -Foul Odor after Cleansing No -Anesthetic Used 5% Lidocaine Gel Right Calf (cm) 38.1 Right Ankle (cm) 28.5 WC - Nurse 2 - General Ulcer CM Notes Start: 12/13/22 09:39 Freq: Status: Active Protocol: Activity Type Activity Date Activity User E-sign Co-sign Detail Recorded Client Recorded Date Recorded By Document 12/13/22 09:53 MW [id number] 12/13/22 10:02 MW 12/13/22 09:53 Wound Center Nurse 2 #1 R Lat Ankle -Time 09:58 -Correct Patient Yes -Correct Side, Site, Position Yes -Correct Procedure Yes -Procedure Performed Yes -Type of Procedure Debridement -Clinical Debridement Subcutaneous -Tissue Removed Subcutaneous -Post Debridement (cm) - Length 1.5 -Post Debridement (cm) - Width 0.9 -Post Debridement (cm) - Depth 0.2 -Total Square (Post) (cm) 1.35 -Area of Debridement (cm) - Length 1.5 -Area of Debridement (cm) - Width 1.5 -Total Square (Area) (cm) 2.25 -Tunneling No -Undermining/Tunneling No -Circular Undermining No -Wound/Ulcer Outcome Not Healed -Ulcer Cleansing Rinsed/ Irrigated with Saline -Foul Odor after Cleansing No -Bioengineered Tissue Yes -Type of Bioengineered Tissue Epifix 18mm Disc -Expiration Date 09/13/27 -Product Lot Number [id number] -Percent Used 100 -Lot number of Saline Used [id number] -Bleeding Controlled with Pressure -Treatment Response Procedure Tolerated Well -Offloading No -Debridement - Subq, 1st 20sq cm No -Apply Skin Sub - 1st 25 sq cm - Legs 1 -Epifix 18mm Disc 3 Pain Scale: 0-10 Numeric Is Patient Pain Free? Yes Assessment/Plan Assessment/Plan (1) 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: CODE(S): L97.312 - Non-pressure chronic ulcer of right ankle with fat layer exposed (2) Insulin dependent diabetes mellitus: (3) Tobacco abuse: CODE(S): Z72.0 - Tobacco use PLAN: Plan Debridement done as documented above, procedure was well-tolerated. 3rd application of EpiFix done using 100% of product. Moistened with saline, covered with Adaptic touch and secured with Steri-Strips. Leave dressing in place for a week. May change outer dressing if needed. 3M wrap for edema management, change on Saturday at the facility. Prealbumin is low, recommend protein supplements twice daily. Her questions were answered and she was advised to call with any further questions or concerns. Follow-up in a week or sooner if needed. This note was generated with [employer] dictation software. It may contain incorrect words, spelling, and punctuation that were not noted in checking the note before signing.
[2022-12-20 09:48] VITALS: BP 104/47; PULSE 77; RESP 16; TEMP 36
--- NOTE | 2022-12-20 12:23 | PCM.WC.PN ---
History of Present Illness Date of Service: 12/20/22 Chief Complaint: Non healing right ankle ulcer History of Wound: Ms. Lam is a 62-year-old who was referred to this facility due to nonhealing right lateral ankle ulcer. Noted a year ago, started out as a bullae and subsequently opened up. She states that over the years, she has had alginate and collagen dressings done at her facility without any significant improvement. History of diabetes mellitus, she is not sure of her most recent A1c but states that it has ranged from 8-13. Also history of tobacco use, smokes daily. There is significant pain around the ulcer but she denies otherwise significant leg pain. Does not wear compression. Sleep sedentary but sleeps in the bed. She feels well otherwise, no chills, fever, nausea, vomiting or change in bowel habit reported. Progress of Wound: Has had 3 Epifix applications so far. No new concerns at this time. Still has significant edema. Objective Data Objective Data Vital Signs: Vital Signs Temp Pulse Resp BP O2 Del Method 96.8 F L 77 16 104/47 L Room Air 12/20/22 09:48 12/20/22 09:48 12/20/22 09:48 12/20/22 09:48 12/20/22 09:48 Oxygen Delivery Method Room Air Charges/Coding Procedures Integumentary 150xxx-152xx: 19368 Skin sub graft trnk/arm/leg Physical Exam Const alert, oriented x3 and no apparent distress General Appearance: cooperative, comfortable and well kempt HEENT normocephalic and head/scalp atraumatic Eyes EOMs intact bilaterally General Eye: normal appearance of both eyes Neck full ROM and supple General: normal visual inspection Resp normal respiratory effort Effort and Inspection: able to speak in complete sentences Extremity General Extremity: edema Skin Wounds: wounds noted Neuro oriented x3, CN's II-XII intact bilaterally and moves all extremities Psych mental status grossly normal, thought process normal, cooperative and affect normal Debridement Note Debridement Note Wound debrided: Right lateral foot/ankle Type of Debridement: Excisional debridement Anesthesia Used: 5% Lidocaine Gel Depth: Down to and including healthy tissue and in the subcutaneous layer Percentage of wound debrided: 100 Instrument Used: 5mm curette Tissue Removed: Slough and devitalized tissue Severity: Fat Layer Exposed Amount of bleeding with debridement: Mild Bleeding Controlled with: Pressure Patient tolerated procedure: Patient tolerated procedure well Post-Debridement Measurements and Additional Note: Post-Debridement Measurements/Treatment WC - Nurse 1 - General Ulcer Assessment Start: 12/13/22 09:39 Freq: Status: Active Protocol: CLOVIS Activity Type Activity Date Activity User E-sign Co-sign Detail Recorded Client Recorded Date Recorded By Document 12/13/22 09:39 [facility] [id number] 12/13/22 09:42 BM Document 12/20/22 09:48 [facility] [id number] 12/20/22 09:59 BMF 12/13/22 12/20/22 09:39 09:48 - Today's Visit Information Type of service Follow-up Visit Follow-up Visit (Physician/APPLIANCE SERVICE REPRESENTATIVE (Physician/APPLIANCE SERVICE REPRESENTATIVE ) ) Arrival Mode Wheelchair Wheelchair Transfer Assistance None None Patient Identification Verified (Name & Yes Yes ) Patient Requires Transmission-Based No No Precautions Finger Stick Blood Sugar(mg/dl) (if 146 indicated): Blood Sugar Stated by Patient Vital Signs Temperature (97.8 F-99.1 F) 97 F L 96.8 F L Temperature Source Temporal Temporal Pulse Rate (60-100) 63 77 Pulse Location Monitor Monitor Respiratory Rate (12-18) 18 16 Respiratory rate source Observation Observation Oxygen Delivery Method Room Air Blood Pressure (90/60-120/80) 125/57 H 104/47 L Blood Pressure Mean (mm Hg) 79 66 Source Monitor Monitor Position Sitting Blood Pressure Location Right Arm History Since Last Visit- (Skip if this is Patient's initial visit) Have you changed medications since your No No last visit? Any new allergies or adverse reactions No No Had a fall/change in ADL's that may No No increase risk of falls Signs or symptoms of abuse and/or No No neglect since last visit Have you been in the hospital since your No No last visit? Has dressing in place as prescribed Yes Yes Has compression in place as prescribed Yes Yes Has offloadiing in place as prescribed Yes N/A Experienced any changes in pain level or No No management Left Footwear Other Footwear (Comment) Right Footwear Slipper Other Footwear left leg in cast d/t fx Pain Scale: 0-10 Numeric Is Patient Pain Free? Yes No L LEG (CAST/FX) -Description Sharp -Intensity 9 -Duration (hours) Acute -Pain Behavior No Change in Behavior -Pain Aggravating Factors Sitting -Alleviating Factors/Interventions Distraction, Will continue to monitor, Patient denies need for intervention, Emotional Support -Comments PT STATES WILL TAKE PAIN MEDS UPON RETURN TO [facility] WC - Nurse 1 - General Ulcer Measurement Start: 12/13/22 09:39 Freq: Status: Active Protocol: Activity Type Activity Date Activity User E-sign Co-sign Detail Recorded Client Recorded Date Recorded By Document 12/13/22 09:39 [facility] [id number] 12/13/22 09:42 [facility] Document 12/20/22 09:48 [facility] [id number] 12/20/22 09:59 [facility] 12/13/22 12/20/22 09:39 09:48 Wound Center Nurse 1 #1 R Lat Ankle -Combined with other wound No -Current Size (cm) - Length 1.3 1.4 -Current Size (cm) - Width 1 1 -Current Size (cm) - Depth 0.2 0.3 -Total Square Cm 1.3 1.4 -Date of Last Picture (Recall this 12/20/22 field) -Photo Taken Yes Yes -Epithelialization None Present -Tunneling No -Undermining/Tunneling No -Circular Undermining No -Exudate Amt Medium Medium -Exudate Type Serosanguineous Serosanguineous -Wound Margin Distinct, Distinct, Outline Outline Attached Attached -Granulation Amt Large (67-100%) Medium (34-66%) -Granulation Quality Red Red -Slough/Fibrin Yes -Necrosis Amt Small (1-33%) Medium (34-66%) -Necrotic Tissue Type Adherent Slough Adherent Slough -Structure Exposed N/A -Texture (Lori-wound Skin Appearance) Scarring Assessed, Scarring -Moisture (Lori-wound Skin Appearance) Maceration Assessed,Dry/ Scaly -Color (Lori-wound Skin Appearance) Hemosiderin Assessed Staining -Temperature (Lori-wound Skin No Abnormality No Abnormality Appearance) (Pt Warm) (Pt Warm) -Tenderness on Palpation (Lori-wound No No Skin Appearance) -Ulcer Cleansing Soap and Water Soap and Water -Foul Odor after Cleansing No No -Anesthetic Used 5% Lidocaine 5% Lidocaine Gel Gel Lower Limb Edema Present Yes Right Calf (cm) 38.1 36.4 Right Ankle (cm) 28.5 22.5 WC - Nurse 2 - General Ulcer CM Notes Start: 12/13/22 09:39 Freq: Status: Active Protocol: Activity Type Activity Date Activity User E-sign Co-sign Detail Recorded Client Recorded Date Recorded By Document 12/13/22 09:53 MW [id number] 12/13/22 10:02 MW Document 12/20/22 10:48 MW [id number] 12/20/22 10:58 MW 12/13/22 12/20/22 09:53 10:48 Wound Center Nurse 2 #1 R Lat Ankle -Time 09:58 10:49 -Correct Patient Yes Yes -Correct Side, Site, Position Yes Yes -Correct Procedure Yes Yes -Procedure Performed Yes Yes -Type of Procedure Debridement Debridement -Clinical Debridement Subcutaneous Subcutaneous -Tissue Removed Subcutaneous Subcutaneous -Post Debridement (cm) - Length 1.5 -Post Debridement (cm) - Width 0.9 -Post Debridement (cm) - Depth 0.2 -Total Square (Post) (cm) 1.35 -Area of Debridement (cm) - Length 1.5 -Area of Debridement (cm) - Width 1.5 -Total Square (Area) (cm) 2.25 -Tunneling No No -Undermining/Tunneling No No -Circular Undermining No No -Wound/Ulcer Outcome Not Healed Not Healed -Ulcer Cleansing Rinsed/ Rinsed/ Irrigated with Irrigated with Saline Saline -Foul Odor after Cleansing No No -Bioengineered Tissue Yes Yes -Type of Bioengineered Tissue Epifix 18mm Epifix 18mm Disc Disc -Expiration Date 09/13/27 10/14/27 -Product Lot Number [id number] -Percent Used 100 100 -Lot number of Saline Used [id number] -Bleeding Controlled with Pressure Pressure -Treatment Response Procedure Procedure Tolerated Well Tolerated Well -Offloading No No -Debridement - Subq, 1st 20sq cm No No -Apply Skin Sub - 1st 25 sq cm - Legs 1 1 -Epifix 18mm Disc 3 3 Pain Scale: 0-10 Numeric Is Patient Pain Free? Yes Yes WC - Nurse 3 - General Ulcer D/C NN Start: 12/13/22 09:39 Freq: Status: Active Protocol: Activity Type Activity Date Activity User E-sign Co-sign Detail Recorded Client Recorded Date Recorded By Document 12/13/22 10:17 DL [id number] 12/13/22 10:18 DL Document 12/20/22 11:45 DL [id number] 12/20/22 11:46 DL 12/13/22 12/20/22 10:17 11:45 Wound Care Center Nurse 3 #1 R Lat Ankle -Foul Odor after Cleansing No No -Other Dressing Epimesh -Primary Dressing Covered/Secured with Dry Gauze Dry Gauze Right -Multi-Layered Wrap Application Multi-Layer Multi-Layer Comp - Right ($ Comp - Right ($ ) ) Treatment Response Procedure Procedure Tolerated Well Tolerated Well Pain Scale: 0-10 Numeric Is Patient Pain Free? Yes Yes WC - Visit Discharge Discharge Condition Stable Stable Ambulatory Status Wheelchair Wheelchair Transportation Private Auto Private Auto Facility Type [facility] Facility Orders Sent Yes Yes Assessment/Plan Assessment/Plan (1) 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: CODE(S): L97.312 - Non-pressure chronic ulcer of right ankle with fat layer exposed (2) Insulin dependent diabetes mellitus: (3) Tobacco abuse: CODE(S): Z72.0 - Tobacco use PLAN: Plan Debridement done as documented above, procedure was well-tolerated. 4th application of EpiFix done using 100% of product. Moistened with saline, covered with Adaptic touch and secured with Steri-Strips. Leave dressing in place for a week. May change outer dressing if needed. Continue 3M wrap for edema management, change on Saturday at the facility. Prealbumin is low, recommend protein supplements twice daily. Also referred to Vascular surgery due to mild PAD on the right. Her questions were answered and she was advised to call with any further questions or concerns. Follow-up in a week or sooner if needed. This note was generated with [employer] dictation software. It may contain incorrect words, spelling, and punctuation that were not noted in checking the note before signing.
[2023-01-03 09:05] VITALS: BP 106/59; PULSE 89; RESP 16; TEMP 36
--- NOTE | 2023-01-03 10:37 | PN.PCM_ITS ---
History of Present Illness Date of Service: 01/03/23 Chief Complaint: Non healing right ankle ulcer History of Wound: Ms. Lam is a 62-year-old who was referred to this facility due to nonhealing right lateral ankle ulcer. Noted a year ago, started out as a bullae and subsequently opened up. She states that over the years, she has had alginate and collagen dressings done at her facility without any significant improvement. History of diabetes mellitus, she is not sure of her most recent A1c but states that it has ranged from 8-13. Also history of tobacco use, smokes daily. There is significant pain around the ulcer but she denies otherwise significant leg pain. Does not wear compression. Sleep sedentary but sleeps in the bed. She feels well otherwise, no chills, fever, nausea, vomiting or change in bowel habit reported. Progress of Wound: Has had 4 Epifix applications so far. Missed her appointment last week due to transportation concerns. Edema has improved with 3M wrap. Yet to schedule an appointment with vascular surgery. Mild PAD (0.9) on the right. Objective Data Objective Data Vital Signs: Vital Signs Temp Pulse Resp BP O2 Del Method 96.8 F L 89 16 106/59 L Room Air 01/03/23 09:05 01/03/23 09:05 01/03/23 09:05 01/03/23 09:05 01/03/23 09:05 Oxygen Delivery Method Room Air Charges/Coding Procedures Integumentary 150xxx-152xx: 04475 Skin sub graft trnk/arm/leg Physical Exam Const alert, oriented x3 and no apparent distress General Appearance: cooperative, comfortable and well kempt HEENT normocephalic and head/scalp atraumatic Eyes EOMs intact bilaterally General Eye: normal appearance of both eyes Neck full ROM and supple General: normal visual inspection Resp normal respiratory effort Effort and Inspection: able to speak in complete sentences Extremity General Extremity: edema Skin Wounds: wounds noted Neuro oriented x3, CN's II-XII intact bilaterally and moves all extremities Psych mental status grossly normal, thought process normal, cooperative and affect normal Debridement Note Debridement Note Wound debrided: Right lateral foot/ankle Type of Debridement: Excisional debridement Anesthesia Used: 5% Lidocaine Gel Depth: Down to and including healthy tissue and in the subcutaneous layer Percentage of wound debrided: 100 Instrument Used: 5mm curette Tissue Removed: Slough and devitalized tissue Severity: Fat Layer Exposed Amount of bleeding with debridement: Mild Bleeding Controlled with: Pressure Patient tolerated procedure: Patient tolerated procedure well Post-Debridement Measurements and Additional Note: Post-Debridement Measurements/Treatment - Nurse 1 - General Ulcer Assessment Start: 12/13/22 09:39 Freq: Status: Active Protocol: CLOVIS Activity Type Activity Date Activity User E-sign Co-sign Detail Recorded Client Recorded Date Recorded By Document 12/13/22 09:39 [facility] [id number] 12/13/22 09:42 BM Document 12/20/22 09:48 [facility] [id number] 12/20/22 09:59 BM Document 01/03/23 09:05 [facility] [id number] 01/03/23 09:16 BMF 12/13/22 12/20/22 01/03/23 09:39 09:48 09:05 - Today's Visit Information Type of service Follow-up Visit Follow-up Visit Follow-up Visit (Physician/EMBEDDED CASE MANAGER (Physician/EMBEDDED CASE MANAGER (Physician/EMBEDDED CASE MANAGER ) ) ) Arrival Mode Wheelchair Wheelchair Wheelchair Transfer Assistance None None None Patient Identification Verified (Name & Yes Yes Yes ) Patient Requires Transmission-Based No No No Precautions Finger Stick Blood Sugar(mg/dl) (if 146 indicated): Blood Sugar Stated by Patient Vital Signs Temperature (97.8 F-99.1 F) 97 F L 96.8 F L 96.8 F L Temperature Source Temporal Temporal Temporal Pulse Rate (60-100) 63 77 89 Pulse Location Monitor Monitor Monitor Respiratory Rate (12-18) 18 16 16 Respiratory rate source Observation Observation Observation Oxygen Delivery Method Room Air Room Air Blood Pressure (90/60-120/80) 125/57 H 104/47 L 106/59 L Blood Pressure Mean (mm Hg) 79 66 74 Source Monitor Monitor Monitor Position Sitting Sitting Blood Pressure Location Right Arm Right Arm History Since Last Visit- (Skip if this is Patient's initial visit) Have you changed medications since your No No No last visit? Any new allergies or adverse reactions No No No Had a fall/change in ADL's that may No No No increase risk of falls Signs or symptoms of abuse and/or No No No neglect since last visit Have you been in the hospital since your No No No last visit? Has dressing in place as prescribed Yes Yes Yes Has compression in place as prescribed Yes Yes Yes Has offloadiing in place as prescribed Yes N/A N/A Experienced any changes in pain level or No No No management Left Footwear Other Footwear (Comment) Right Footwear Slipper Slipper Other Footwear left leg in cast to lle cast d/t fx Pain Scale: 0-10 Numeric Is Patient Pain Free? Yes No Yes L LEG (CAST/FX) -Description Sharp -Intensity 9 -Duration (hours) Acute -Pain Behavior No Change in Behavior -Pain Aggravating Factors Sitting -Alleviating Factors/Interventions Distraction, Will continue to monitor, Patient denies need for intervention, Emotional Support -Comments PT STATES WILL TAKE PAIN MEDS UPON RETURN TO [facility] WC - Nurse 1 - General Ulcer Measurement Start: 12/13/22 09:39 Freq: Status: Active Protocol: Activity Type Activity Date Activity User E-sign Co-sign Detail Recorded Client Recorded Date Recorded By Document 12/13/22 09:39 [facility] [id number] 12/13/22 09:42 [facility] Document 12/20/22 09:48 [facility] [id number] 12/20/22 09:59 [facility] Document 01/03/23 09:05 [facility] [id number] 01/03/23 09:16 [facility] 12/13/22 12/20/22 01/03/23 09:39 09:48 09:05 Wound Center Nurse 1 #1 R Lat Ankle -Combined with other wound No No -Current Size (cm) - Length 1.3 1.4 1.1 -Current Size (cm) - Width 1 1 0.9 -Current Size (cm) - Depth 0.2 0.3 0.1 -Total Square Cm 1.3 1.4 0.99 -Date of Last Picture (Recall this 12/20/22 01/03/23 field) -Photo Taken Yes Yes Yes -Epithelialization None Present Small 1-33% -Tunneling No No -Undermining/Tunneling No No -Circular Undermining No No -Exudate Amt Medium Medium Medium -Exudate Type Serosanguineous Serosanguineous Serosanguineous -Wound Margin Distinct, Distinct, Distinct, Outline Outline Outline Attached Attached Attached -Granulation Amt Large (67-100%) Medium (34-66%) Small (1-33%) -Granulation Quality Red Red Red -Slough/Fibrin Yes Yes -Necrosis Amt Small (1-33%) Medium (34-66%) Large (67-100%) -Necrotic Tissue Type Adherent Slough Adherent Slough Adherent Slough -Structure Exposed N/A -Texture (Lori-wound Skin Appearance) Scarring Assessed, Assessed, Scarring Scarring -Moisture (Lori-wound Skin Appearance) Maceration Assessed,Dry/ Assessed Scaly -Color (Lori-wound Skin Appearance) Hemosiderin Assessed Assessed Staining -Temperature (Lori-wound Skin No Abnormality No Abnormality No Abnormality Appearance) (Pt Warm) (Pt Warm) (Pt Warm) -Tenderness on Palpation (Lori-wound No No No Skin Appearance) -Ulcer Cleansing Soap and Water Soap and Water Soap and Water -Foul Odor after Cleansing No No No -Anesthetic Used 5% Lidocaine 5% Lidocaine 5% Lidocaine Gel Gel Gel Lower Limb Edema Present Yes Right Calf (cm) 38.1 36.4 36.2 Right Ankle (cm) 28.5 22.5 22.5 WC - Nurse 2 - General Ulcer CM Notes Start: 12/13/22 09:39 Freq: Status: Active Protocol: Activity Type Activity Date Activity User E-sign Co-sign Detail Recorded Client Recorded Date Recorded By Document 12/13/22 09:53 MW [id number] 12/13/22 10:02 MW Document 12/20/22 10:48 MW [id number] 12/20/22 10:58 MW Document 01/03/23 10:08 MW [id number] 01/03/23 10:17 MW 12/13/22 12/20/22 01/03/23 09:53 10:48 10:08 Wound Center Nurse 2 #1 R Lat Ankle -Time 09:58 10:49 10:09 -Correct Patient Yes Yes Yes -Correct Side, Site, Position Yes Yes Yes -Correct Procedure Yes Yes Yes -Procedure Performed Yes Yes Yes -Type of Procedure Debridement Debridement Debridement -Clinical Debridement Subcutaneous Subcutaneous Subcutaneous -Tissue Removed Subcutaneous Subcutaneous Subcutaneous -Post Debridement (cm) - Length 1.5 1.5 -Post Debridement (cm) - Width 0.9 1.1 -Post Debridement (cm) - Depth 0.2 0.2 -Total Square (Post) (cm) 1.35 1.65 -Area of Debridement (cm) - Length 1.5 1.5 -Area of Debridement (cm) - Width 1.5 1.1 -Total Square (Area) (cm) 2.25 1.65 -Tunneling No No No -Undermining/Tunneling No No No -Circular Undermining No No No -Wound/Ulcer Outcome Not Healed Not Healed Not Healed -Ulcer Cleansing Rinsed/ Rinsed/ Wound Cleanser Irrigated with Irrigated with Saline Saline -Foul Odor after Cleansing No No No -Bioengineered Tissue Yes Yes Yes -Type of Bioengineered Tissue Epifix 18mm Epifix 18mm Epifix 18mm Disc Disc Disc -Expiration Date 09/13/27 10/14/27 10/14/27 -Product Lot Number [id number] -Percent Used 100 100 100 -Lot number of Saline Used [id number] -Bleeding Controlled with Pressure Pressure Pressure -Treatment Response Procedure Procedure Procedure Tolerated Well Tolerated Well Tolerated Well -Offloading No No No -Debridement - Subq, 1st 20sq cm No No No -Apply Skin Sub - 1st 25 sq cm - Legs 1 1 1 -Epifix 18mm Disc 3 3 3 Pain Scale: 0-10 Numeric Is Patient Pain Free? Yes Yes Yes WC - Nurse 3 - General Ulcer D/C NN Start: 12/13/22 09:39 Freq: Status: Active Protocol: Activity Type Activity Date Activity User E-sign Co-sign Detail Recorded Client Recorded Date Recorded By Document 12/13/22 10:17 DL [id number] 12/13/22 10:18 DL Document 12/20/22 11:45 DL [id number] 12/20/22 11:46 DL Document 01/03/23 10:33 [facility] [id number] 01/03/23 10:34 [facility] 12/13/22 12/20/22 01/03/23 10:17 11:45 10:33 Wound Care Center Nurse 3 #1 R Lat Ankle -Foul Odor after Cleansing No No -Other Dressing Epimesh EPIFIX -Primary Dressing Covered/Secured with Dry Gauze Dry Gauze -Other Covering ABD Right -Lotion applied to leg before Yes compression wrap -Multi-Layered Wrap Application Multi-Layer Multi-Layer Multi-Layer Comp - Right ($ Comp - Right ($ Comp - Right ($ ) ) ) Treatment Response Procedure Procedure Procedure Tolerated Well Tolerated Well Tolerated Well Pain Scale: 0-10 Numeric Is Patient Pain Free? Yes Yes Yes WC - Visit Discharge Discharge Condition Stable Stable Stable Ambulatory Status Wheelchair Wheelchair Wheelchair Transportation Private Auto Private Auto ECF Facility Type [facility] Facility Facility Orders Sent Yes Yes Assessment/Plan Assessment/Plan (1) 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: CODE(S): L97.312 - Non-pressure chronic ulcer of right ankle with fat layer exposed (2) Insulin dependent diabetes mellitus: (3) Tobacco abuse: CODE(S): Z72.0 - Tobacco use PLAN: Plan Debridement done as documented above, procedure was well-tolerated. No significant change since her last visit. 5th application of EpiFix done using 100% of product. Moistened with hydrogel, covered with Adaptic touch and secured with Steri-Strips. Leave dressing in place for a week. May change outer dressing if needed. Continue 3M wrap for edema management, change on Saturday at the facility. Prealbumin is low, recommend protein supplements twice daily. Also referred to Vascular surgery due to mild PAD on the right, yet to schedule appointment. Her questions were answered and she was advised to call with any further questions or concerns. Follow-up in a week for a courtesy visit and in 2 weeks with me. This note was generated with [employer] dictation software. It may contain incorrect words, spelling, and punctuation that were not noted in checking the note before signing.
[2023-01-11 13:25] VITALS: BP 120/59; PULSE 72; RESP 18; TEMP 36.6
--- NOTE | 2023-01-11 17:23 | PN.PCM_ITS ---
History of Present Illness Date of Service: 01/11/23 Chief Complaint: Non healing right ankle ulcer History of Wound: Ms. Lam is a 62-year-old who was referred to this facility due to nonhealing right lateral ankle ulcer. Noted a year ago, started out as a bullae and subsequently opened up. She states that over the years, she has had alginate and collagen dressings done at her facility without any significant improvement. History of diabetes mellitus, she is not sure of her most recent A1c but states that it has ranged from 8-13. Also history of tobacco use, smokes daily. There is significant pain around the ulcer but she denies otherwise significant leg pain. Does not wear compression. Sleep sedentary but sleeps in the bed. She feels well otherwise, no chills, fever, nausea, vomiting or change in bowel habit reported. Progress of Wound: She reports she is doing well. Edema remains improved with compression wraps. She denies any new or worsening pain, edema, erythema, drainage and denies nausea, vomiting, fevers, chills. Objective Data Objective Data Vital Signs: Vital Signs Temp Pulse Resp BP O2 Del Method 97.8 F 72 18 120/59 L Room Air 01/11/23 13:25 01/11/23 13:25 01/11/23 13:25 01/11/23 13:25 01/03/23 09:05 Oxygen Delivery Method Room Air Charges/Coding Procedures Integumentary 150xxx-152xx: 40969 Skin sub graft trnk/arm/leg Physical Exam Const alert, oriented x3 and no apparent distress General Appearance: cooperative, comfortable and well kempt HEENT normocephalic and head/scalp atraumatic Eyes EOMs intact bilaterally General Eye: normal appearance of both eyes Neck full ROM and supple General: normal visual inspection Resp normal respiratory effort Effort and Inspection: able to speak in complete sentences Extremity General Extremity: edema Skin Wounds: wounds noted Neuro oriented x3, CN's II-XII intact bilaterally and moves all extremities Psych mental status grossly normal, thought process normal, cooperative and affect normal Debridement Note Debridement Note Wound debrided: Right lateral foot/ankle Type of Debridement: Excisional debridement Anesthesia Used: 5% Lidocaine Gel Depth: Down to and including healthy tissue and in the subcutaneous layer Percentage of wound debrided: 100 Instrument Used: 5mm curette Tissue Removed: Slough and devitalized tissue Severity: Fat Layer Exposed Amount of bleeding with debridement: Mild Bleeding Controlled with: Pressure Patient tolerated procedure: Patient tolerated procedure well Post-Debridement Measurements and Additional Note: Post-Debridement Measurements/Treatment - Nurse 1 - General Ulcer Assessment Start: 12/13/22 09:39 Freq: Status: Active Protocol: CLOVIS Activity Type Activity Date Activity User E-sign Co-sign Detail Recorded Client Recorded Date Recorded By Document 12/13/22 09:39 [facility] [id number] 12/13/22 09:42 [facility] Document 12/20/22 09:48 [facility] [id number] 12/20/22 09:59 [facility] Document 01/03/23 09:05 [facility] [id number] 01/03/23 09:16 [facility] Document 01/11/23 13:25 PL [id number] 01/11/23 13:35 PL 12/13/22 12/20/22 01/03/23 09:39 09:48 09:05 - Today's Visit Information Type of service Follow-up Visit Follow-up Visit Follow-up Visit (Physician/STUMMEL SELECTOR (Physician/STUMMEL SELECTOR (Physician/STUMMEL SELECTOR ) ) ) Arrival Mode Wheelchair Wheelchair Wheelchair Transfer Assistance None None None Patient Identification Verified (Name & Yes Yes Yes ) Patient Requires Transmission-Based No No No Precautions Safety Precautions Finger Stick Blood Sugar(mg/dl) (if 146 indicated): Blood Sugar Stated by Patient Vital Signs Temperature (97.8 F-99.1 F) 97 F L 96.8 F L 96.8 F L Temperature Source Temporal Temporal Temporal Pulse Rate (60-100) 63 77 89 Pulse Location Monitor Monitor Monitor Respiratory Rate (12-18) 18 16 16 Respiratory rate source Observation Observation Observation Oxygen Delivery Method Room Air Room Air Blood Pressure (90/60-120/80) 125/57 H 104/47 L 106/59 L Blood Pressure Mean (mm Hg) 79 66 74 Source Monitor Monitor Monitor Position Sitting Sitting Blood Pressure Location Right Arm Right Arm History Since Last Visit- (Skip if this is Patient's initial visit) Have you changed medications since your No No No last visit? Any new allergies or adverse reactions No No No Had a fall/change in ADL's that may No No No increase risk of falls Signs or symptoms of abuse and/or No No No neglect since last visit Have you been in the hospital since your No No No last visit? Has dressing in place as prescribed Yes Yes Yes Has compression in place as prescribed Yes Yes Yes Has offloadiing in place as prescribed Yes N/A N/A Experienced any changes in pain level or No No No management Left Footwear Other Footwear (Comment) Right Footwear Slipper Slipper Other Footwear left leg in cast to lle cast d/t fx Pain Scale: 0-10 Numeric Is Patient Pain Free? Yes No Yes L LEG (CAST/FX) -Description Sharp -Intensity 9 -Duration (hours) Acute -Pain Behavior No Change in Behavior -Pain Aggravating Factors Sitting -Alleviating Factors/Interventions Distraction, Will continue to monitor, Patient denies need for intervention, Emotional Support -Comments PT STATES WILL TAKE PAIN MEDS UPON RETURN TO [facility] 01/11/23 13:25 WC - Today's Visit Information Type of service Follow-up Visit (Physician/STUMMEL SELECTOR ) Arrival Mode Wheelchair Transfer Assistance None Patient Identification Verified (Name & Yes ) Patient Requires Transmission-Based No Precautions Safety Precautions NA Finger Stick Blood Sugar(mg/dl) (if 238 indicated): Blood Sugar Stated by Patient Vital Signs Temperature (97.8 F-99.1 F) 97.8 F Temperature Source Temporal Pulse Rate (60-100) 72 Pulse Location Respiratory Rate (12-18) 18 Respiratory rate source Oxygen Delivery Method Blood Pressure (90/60-120/80) 120/59 L Blood Pressure Mean (mm Hg) 79 Source Position Blood Pressure Location History Since Last Visit- (Skip if this is Patient's initial visit) Have you changed medications since your No last visit? Any new allergies or adverse reactions No Had a fall/change in ADL's that may No increase risk of falls Signs or symptoms of abuse and/or No neglect since last visit Have you been in the hospital since your No last visit? Has dressing in place as prescribed Yes Has compression in place as prescribed Yes Has offloadiing in place as prescribed N/A Experienced any changes in pain level or No management Left Footwear Right Footwear Other Footwear Pain Scale: 0-10 Numeric Is Patient Pain Free? Yes L LEG (CAST/FX) -Description -Intensity -Duration (hours) -Pain Behavior -Pain Aggravating Factors -Alleviating Factors/Interventions -Comments WC - Nurse 1 - General Ulcer Measurement Start: 12/13/22 09:39 Freq: Status: Active Protocol: Activity Type Activity Date Activity User E-sign Co-sign Detail Recorded Client Recorded Date Recorded By Document 12/13/22 09:39 [facility] [id number] 12/13/22 09:42 BMF Document 12/20/22 09:48 [facility] [id number] 12/20/22 09:59 BM Document 01/03/23 09:05 [facility] [id number] 01/03/23 09:16 BMF 12/13/22 12/20/22 01/03/23 09:39 09:48 09:05 Wound Center Nurse 1 #1 R Lat Ankle -Combined with other wound No No -Current Size (cm) - Length 1.3 1.4 1.1 -Current Size (cm) - Width 1 1 0.9 -Current Size (cm) - Depth 0.2 0.3 0.1 -Total Square Cm 1.3 1.4 0.99 -Date of Last Picture (Recall this 12/20/22 01/03/23 field) -Photo Taken Yes Yes Yes -Epithelialization None Present Small 1-33% -Tunneling No No -Undermining/Tunneling No No -Circular Undermining No No -Exudate Amt Medium Medium Medium -Exudate Type Serosanguineous Serosanguineous Serosanguineous -Wound Margin Distinct, Distinct, Distinct, Outline Outline Outline Attached Attached Attached -Granulation Amt Large (67-100%) Medium (34-66%) Small (1-33%) -Granulation Quality Red Red Red -Slough/Fibrin Yes Yes -Necrosis Amt Small (1-33%) Medium (34-66%) Large (67-100%) -Necrotic Tissue Type Adherent Slough Adherent Slough Adherent Slough -Structure Exposed N/A -Texture (Lori-wound Skin Appearance) Scarring Assessed, Assessed, Scarring Scarring -Moisture (Lori-wound Skin Appearance) Maceration Assessed,Dry/ Assessed Scaly -Color (Lori-wound Skin Appearance) Hemosiderin Assessed Assessed Staining -Temperature (Lori-wound Skin No Abnormality No Abnormality No Abnormality Appearance) (Pt Warm) (Pt Warm) (Pt Warm) -Tenderness on Palpation (Lori-wound No No No Skin Appearance) -Ulcer Cleansing Soap and Water Soap and Water Soap and Water -Foul Odor after Cleansing No No No -Anesthetic Used 5% Lidocaine 5% Lidocaine 5% Lidocaine Gel Gel Gel Lower Limb Edema Present Yes Right Calf (cm) 38.1 36.4 36.2 Right Ankle (cm) 28.5 22.5 22.5 WC - Nurse 2 - General Ulcer CM Notes Start: 12/13/22 09:39 Freq: Status: Active Protocol: Activity Type Activity Date Activity User E-sign Co-sign Detail Recorded Client Recorded Date Recorded By Document 12/13/22 09:53 MW [id number] 12/13/22 10:02 MW Document 12/20/22 10:48 MW [id number] 12/20/22 10:58 MW Document 01/03/23 10:08 MW [id number] 01/03/23 10:17 MW Document 01/11/23 15:55 PL [id number] 01/11/23 15:56 PL 12/13/22 12/20/22 01/03/23 09:53 10:48 10:08 Wound Center Nurse 2 #1 R Lat Ankle -Time 09:58 10:49 10:09 -Correct Patient Yes Yes Yes -Correct Side, Site, Position Yes Yes Yes -Correct Procedure Yes Yes Yes -Procedure Performed Yes Yes Yes -Type of Procedure Debridement Debridement Debridement -Clinical Debridement Subcutaneous Subcutaneous Subcutaneous -Tissue Removed Subcutaneous Subcutaneous Subcutaneous -Post Debridement (cm) - Length 1.5 1.5 -Post Debridement (cm) - Width 0.9 1.1 -Post Debridement (cm) - Depth 0.2 0.2 -Total Square (Post) (cm) 1.35 1.65 -Area of Debridement (cm) - Length 1.5 1.5 -Area of Debridement (cm) - Width 1.5 1.1 -Total Square (Area) (cm) 2.25 1.65 -Tunneling No No No -Undermining/Tunneling No No No -Circular Undermining No No No -Wound/Ulcer Outcome Not Healed Not Healed Not Healed -Ulcer Cleansing Rinsed/ Rinsed/ Wound Cleanser Irrigated with Irrigated with Saline Saline -Foul Odor after Cleansing No No No -Bioengineered Tissue Yes Yes Yes -Type of Bioengineered Tissue Epifix 18mm Epifix 18mm Epifix 18mm Disc Disc Disc -Expiration Date 09/13/27 10/14/27 10/14/27 -Product Lot Number [id number] -Percent Used 100 100 100 -Lot number of Saline Used [id number] -Bleeding Controlled with Pressure Pressure Pressure -Treatment Response Procedure Procedure Procedure Tolerated Well Tolerated Well Tolerated Well -Offloading No No No -Debridement - Subq, 1st 20sq cm No No No -Apply Skin Sub - 1st 25 sq cm - Legs 1 1 1 -Epifix 18mm Disc 3 3 3 Pain Scale: 0-10 Numeric Is Patient Pain Free? Yes Yes Yes 01/11/23 15:55 Wound Center Nurse 2 #1 R Lat Ankle -Time 13:40 -Correct Patient Yes -Correct Side, Site, Position Yes -Correct Procedure Yes -Procedure Performed Yes -Type of Procedure Debridement -Clinical Debridement Subcutaneous -Tissue Removed Subcutaneous -Post Debridement (cm) - Length 1.5 -Post Debridement (cm) - Width 1.0 -Post Debridement (cm) - Depth 0.7 -Total Square (Post) (cm) 1.50 -Area of Debridement (cm) - Length 1.5 -Area of Debridement (cm) - Width 1.0 -Total Square (Area) (cm) 1.50 -Tunneling No -Undermining/Tunneling No -Circular Undermining No -Wound/Ulcer Outcome Not Healed -Ulcer Cleansing Rinsed/ Irrigated with Saline -Foul Odor after Cleansing No -Bioengineered Tissue Yes -Type of Bioengineered Tissue Epifix 18mm Disc -Expiration Date 10/14/27 -Product Lot Number [id number] -Percent Used 100 -Lot number of Saline Used -Bleeding Controlled with Pressure -Treatment Response Procedure Tolerated Well -Offloading -Debridement - Subq, 1st 20sq cm No -Apply Skin Sub - 1st 25 sq cm - Legs 1 -Epifix 18mm Disc 3 Pain Scale: 0-10 Numeric Is Patient Pain Free? Yes WC - Nurse 3 - General Ulcer D/C NN Start: 12/13/22 09:39 Freq: Status: Active Protocol: Activity Type Activity Date Activity User E-sign Co-sign Detail Recorded Client Recorded Date Recorded By Document 12/13/22 10:17 DL [id number] 12/13/22 10:18 DL Document 12/20/22 11:45 DL [id number] 12/20/22 11:46 DL Document 01/03/23 10:33 BMF [id number] 01/03/23 10:34 BMF Document 01/11/23 14:04 RB [id number] 01/11/23 14:05 RB 12/13/22 12/20/22 01/03/23 10:17 11:45 10:33 Wound Care Center Nurse 3 #1 R Lat Ankle -Ulcer Cleansing -Foul Odor after Cleansing No No -Other Dressing Epimesh EPIFIX -Primary Dressing Covered/Secured with Dry Gauze Dry Gauze -Other Covering ABD Right -Lotion applied to leg before Yes compression wrap -Multi-Layered Wrap Application Multi-Layer Multi-Layer Multi-Layer Comp - Right ($ Comp - Right ($ Comp - Right ($ ) ) ) Treatment Response Procedure Procedure Procedure Tolerated Well Tolerated Well Tolerated Well Pain Scale: 0-10 Numeric Is Patient Pain Free? Yes Yes Yes WC - Visit Discharge Discharge Condition Stable Stable Stable Ambulatory Status Wheelchair Wheelchair Wheelchair Transportation Private Auto Private Auto ECF Medication Reconcilliation completed & provided to patient/care provider Clinical Summary of Care Provided Facility Type Sports Management Professor Care [facility] Facility Facility Orders Sent Yes Yes 01/11/23 14:04 Wound Care Center Nurse 3 #1 R Lat Ankle -Ulcer Cleansing Rinsed/ Irrigated with Saline -Foul Odor after Cleansing -Other Dressing -Primary Dressing Covered/Secured with Dry Gauze, Secured with Tape -Other Covering Right -Lotion applied to leg before compression wrap -Multi-Layered Wrap Application Multi-Layer Comp - Right ($ ) Treatment Response Procedure Tolerated Well Pain Scale: 0-10 Numeric Is Patient Pain Free? Yes WC - Visit Discharge Discharge Condition Stable Ambulatory Status Ambulatory Transportation Private Auto Medication Reconcilliation completed & No provided to patient/care provider Clinical Summary of Care Provided Yes Facility Type Orders Sent Assessment/Plan Assessment/Plan (1) 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: CODE(S): L97.312 - Non-pressure chronic ulcer of right ankle with fat layer exposed (2) Insulin dependent diabetes mellitus: (3) Tobacco abuse: CODE(S): Z72.0 - Tobacco use PLAN: Plan Patient seen today as a courtesy visit for another wound care provider. Debridement was performed to obtain a clean and well bleeding wound bed. EpiFix #6 was applied in sterile fashion, moistened with saline, covered with Adaptic, and secured with Steri-Strips. 100% of the product was used. Patient was instructed to leave this in place for 1 week and to keep dry. The outer dressing may be changed as needed to keep clean and dry. Will continue with 3M wraps for compression. Patient has an appointment with our vascular surgery office on 01/16/23. Return to the wound care center next as scheduled. This note was generated with [employer] dictation software. It may contain incorrect words, spelling, and punctuation that were not noted in checking the note before signing.
== END 2023-01-11 23:59 | disposition home or self-care (01) ==
LOC: WC 13:15
PROVIDERS: PCP Internal Medicine; Referring Provider Internal Medicine; Visit Provider Internal Medicine
DX: E11.622 Type 2 diabetes mellitus with other skin ulcer (principal); E11.51 Type 2 diabetes mellitus with diabetic peripheral angiopathy without gangrene; L97.312 Non-pressure chronic ulcer of right ankle with fat layer exposed; Z79.4 Long term (current) use of insulin; R60.0 Localized edema; Z72.0 Tobacco use
CPT/HCPCS: 15271; 29581; Q4186

== ENCOUNTER 2023-02-07 09:15 | Outpatient (RCR) | payer MEDICARE, MEDICAID, SELFPAY ==
[2023-01-12 00:29] VITALS: BP 120/59; PULSE 72; RESP 18; TEMP 36.6
[2023-01-17 09:59] VITALS: BP 102/72; PULSE 63; RESP 16; TEMP 35.7
--- NOTE | 2023-01-17 12:26 | PCM.WC.PN ---
History of Present Illness Date of Service: 01/17/23 Chief Complaint: Non healing right ankle ulcer History of Wound: Ms. Lam is a 62-year-old who was referred to this facility due to nonhealing right lateral ankle ulcer. Noted a year ago, started out as a bullae and subsequently opened up. She states that over the years, she has had alginate and collagen dressings done at her facility without any significant improvement. History of diabetes mellitus, she is not sure of her most recent A1c but states that it has ranged from 8-13. Also history of tobacco use, smokes daily. There is significant pain around the ulcer but she denies otherwise significant leg pain. Does not wear compression. Sleep sedentary but sleeps in the bed. She feels well otherwise, no chills, fever, nausea, vomiting or change in bowel habit reported. Progress of Wound: Has had 6 Epifix applications so far. Also seen by Vascular surgery. No acute concerns at this time. Objective Data Objective Data Vital Signs: Vital Signs Temp Pulse Resp BP 96.2 F L 63 16 102/72 01/17/23 09:59 01/17/23 09:59 01/17/23 09:59 01/17/23 09:59 Charges/Coding Procedures Integumentary 150xxx-152xx: 47297 Skin sub graft trnk/arm/leg Physical Exam Const alert, oriented x3 and no apparent distress General Appearance: cooperative, comfortable and well kempt HEENT normocephalic and head/scalp atraumatic Eyes EOMs intact bilaterally General Eye: normal appearance of both eyes Neck full ROM and supple General: normal visual inspection Resp normal respiratory effort Effort and Inspection: able to speak in complete sentences Extremity General Extremity: edema Skin Wounds: wounds noted Neuro oriented x3, CN's II-XII intact bilaterally and moves all extremities Psych mental status grossly normal, thought process normal, cooperative and affect normal Debridement Note Debridement Note Wound debrided: Right lateral foot/ankle Type of Debridement: Excisional debridement Anesthesia Used: 5% Lidocaine Gel Depth: Down to and including healthy tissue and in the subcutaneous layer Percentage of wound debrided: 100 Instrument Used: 5mm curette Tissue Removed: Slough and devitalized tissue Severity: Fat Layer Exposed Amount of bleeding with debridement: Mild Bleeding Controlled with: Pressure Patient tolerated procedure: Patient tolerated procedure well Post-Debridement Measurements and Additional Note: Post-Debridement Measurements/Treatment WC - Nurse 1 - General Ulcer Assessment Start: 01/17/23 09:50 Freq: Status: Active Protocol: CLOVIS Activity Type Activity Date Activity User E-sign Co-sign Detail Recorded Client Recorded Date Recorded By Document 01/17/23 09:59 JF [id number] 01/17/23 10:00 01/17/23 09:59 WC - Today's Visit Information Type of service Follow-up Visit (Physician/MUSIC SOUND LIGHT TECHNICIAN ) Arrival Mode Wheelchair Patient Identification Verified (Name & Yes ) Patient Requires Transmission-Based No Precautions Vital Signs Temperature (97.8 F-99.1 F) 96.2 F L Temperature Source Temporal Pulse Rate (60-100) 63 Pulse Location Monitor Respiratory Rate (12-18) 16 Respiratory rate source Observation Blood Pressure (90/60-120/80) 102/72 Blood Pressure Mean (mm Hg) 82 Source Monitor Position Sitting Blood Pressure Location Right Arm History Since Last Visit- (Skip if this is Patient's initial visit) Have you changed medications since your No last visit? Any new allergies or adverse reactions No Had a fall/change in ADL's that may No increase risk of falls Signs or symptoms of abuse and/or No neglect since last visit Have you been in the hospital since your No last visit? Has dressing in place as prescribed Yes Has compression in place as prescribed Yes Has offloadiing in place as prescribed N/A Experienced any changes in pain level or No management Left Footwear No Footwear Right Footwear Slipper Pain Scale: 0-10 Numeric Is Patient Pain Free? Yes - Nurse 1 - General Ulcer Measurement Start: 01/17/23 09:50 Freq: Status: Active Protocol: Activity Type Activity Date Activity User E-sign Co-sign Detail Recorded Client Recorded Date Recorded By Document 01/17/23 09:59 JF [id number] 01/17/23 10:00 JANICE 01/17/23 09:59 Wound Center Nurse 1 #1 R Lat Ankle -Combined with other wound No -Current Size (cm) - Length 1.2 -Current Size (cm) - Width 0.9 -Current Size (cm) - Depth 0.1 -Total Square Cm 1.08 -Photo Taken Yes -Epithelialization Small 1-33% -Tunneling No -Undermining/Tunneling No -Circular Undermining No -Exudate Amt Small -Exudate Type Serosanguineous -Wound Margin Flat & Intact -Granulation Amt Medium (34-66%) -Granulation Quality Red -Slough/Fibrin Yes -Necrosis Amt Medium (34-66%) -Necrotic Tissue Type Eschar -Structure Exposed N/A -Texture (Lori-wound Skin Appearance) Assessed, Localized Edema -Moisture (Lori-wound Skin Appearance) Assessed,Dry/ Scaly -Color (Lori-wound Skin Appearance) Assessed -Temperature (Lori-wound Skin No Abnormality Appearance) (Pt Warm) -Tenderness on Palpation (Lori-wound No Skin Appearance) -Ulcer Cleansing Wound Cleanser -Foul Odor after Cleansing No -Anesthetic Used 5% Lidocaine Gel Lower Limb Edema Present Yes Right Calf (cm) 37.7 Right Ankle (cm) 21.2 WC - Nurse 2 - General Ulcer CM Notes Start: 01/17/23 09:50 Freq: Status: Active Protocol: Activity Type Activity Date Activity User E-sign Co-sign Detail Recorded Client Recorded Date Recorded By Document 01/17/23 10:11 MW [id number] 01/17/23 10:20 MW 01/17/23 10:11 Wound Center Nurse 2 #1 R Lat Ankle -Time 10:11 -Correct Patient Yes -Correct Side, Site, Position Yes -Correct Procedure Yes -Procedure Performed Yes -Type of Procedure Debridement -Clinical Debridement Subcutaneous -Tissue Removed Subcutaneous -Post Debridement (cm) - Length 1.4 -Post Debridement (cm) - Width 0.7 -Post Debridement (cm) - Depth 0.2 -Total Square (Post) (cm) 0.98 -Area of Debridement (cm) - Length 1.4 -Area of Debridement (cm) - Width 0.7 -Total Square (Area) (cm) 0.98 -Tunneling No -Undermining/Tunneling No -Circular Undermining No -Wound/Ulcer Outcome Not Healed -Ulcer Cleansing Rinsed/ Irrigated with Saline -Foul Odor after Cleansing No -Bioengineered Tissue Yes -Type of Bioengineered Tissue Epifix 18mm Disc -Expiration Date 11/13/27 -Product Lot Number [id number] -Percent Used 100 -Bleeding Controlled with Pressure -Treatment Response Procedure Tolerated Well -Offloading No -Debridement - Subq, 1st 20sq cm No -Apply Skin Sub - 1st 25 sq cm - Legs 1 -Epifix 18mm Disc 3 Pain Scale: 0-10 Numeric Is Patient Pain Free? Yes - Nurse 3 - General Ulcer D/C NN Start: 01/17/23 09:50 Freq: Status: Active Protocol: Activity Type Activity Date Activity User E-sign Co-sign Detail Recorded Client Recorded Date Recorded By Document 01/17/23 12:06 JANICE [id number] 01/17/23 12:07 JANICE 01/17/23 12:06 Wound Care Center Nurse 3 #1 R Lat Ankle -Ulcer Cleansing Rinsed/ Irrigated with Saline -Foul Odor after Cleansing No -Primary Dressing Covered/Secured with Dry Gauze Lori-Wound Care Barrier Right -Lotion applied to leg before Yes compression wrap -Multi-Layered Wrap Application Multi-Layer Comp - Right ($ ) Pain Scale: 0-10 Numeric Is Patient Pain Free? Yes WC - Visit Discharge Discharge Condition Stable Ambulatory Status Wheelchair Transportation Private Auto Medication Reconcilliation completed & Yes provided to patient/care provider Clinical Summary of Care Provided Yes Assessment/Plan Assessment/Plan (1) 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: CODE(S): L97.312 - Non-pressure chronic ulcer of right ankle with fat layer exposed (2) Insulin dependent diabetes mellitus: (3) Tobacco abuse: CODE(S): Z72.0 - Tobacco use PLAN: Plan Debridement done as documented above, procedure was well-tolerated. Improving. 7th application of EpiFix done using 100% of product. Moistened with hydrogel, covered with Adaptic touch and secured with Steri-Strips. Leave dressing in place for a week. May change outer dressing if needed. Continue 3M wrap for edema management, change on Saturday at the facility. Prealbumin is low, recommend protein supplements twice daily. Also referred to Vascular surgery due to mild PAD on the right, yet to schedule appointment. Her questions were answered and she was advised to call with any further questions or concerns. Follow up in 1 week. This note was generated with [employer] software. It may contain incorrect words, spelling, and punctuation that were not noted in checking the note before signing.
[2023-01-24 09:02] VITALS: BP 95/46; PULSE 72; RESP 18; TEMP 35.8
--- NOTE | 2023-01-24 11:25 | PN.PCM_ITS ---
History of Present Illness Date of Service: 01/24/23 Chief Complaint: Non healing right ankle ulcer History of Wound: Ms. Lam is a 62-year-old who was referred to this facility due to nonhealing right lateral ankle ulcer. Noted a year ago, started out as a bullae and subsequently opened up. She states that over the years, she has had alginate and collagen dressings done at her facility without any significant improvement. History of diabetes mellitus, she is not sure of her most recent A1c but states that it has ranged from 8-13. Also history of tobacco use, smokes daily. There is significant pain around the ulcer but she denies otherwise significant leg pain. Does not wear compression. Sleep sedentary but sleeps in the bed. She feels well otherwise, no chills, fever, nausea, vomiting or change in bowel habit reported. Progress of Wound: Has had 7 Epifix applications so far. Also seen by Vascular surgery. No acute concerns at this time. Objective Data Objective Data Vital Signs: Vital Signs Temp Pulse Resp BP O2 Del Method 96.5 F L 72 18 95/46 L Room Air 01/24/23 09:02 01/24/23 09:02 01/24/23 09:02 01/24/23 09:02 01/24/23 09:02 Oxygen Delivery Method Room Air Charges/Coding Procedures Integumentary 150xxx-152xx: 83474 Skin sub graft trnk/arm/leg Physical Exam Const alert, oriented x3 and no apparent distress General Appearance: cooperative, comfortable and well kempt HEENT normocephalic and head/scalp atraumatic Eyes EOMs intact bilaterally General Eye: normal appearance of both eyes Neck full ROM and supple General: normal visual inspection Resp normal respiratory effort Effort and Inspection: able to speak in complete sentences Extremity General Extremity: edema Skin Wounds: wounds noted Neuro oriented x3, CN's II-XII intact bilaterally and moves all extremities Psych mental status grossly normal, thought process normal, cooperative and affect normal Debridement Note Debridement Note Wound debrided: Right lateral foot/ankle Type of Debridement: Excisional debridement Anesthesia Used: 5% Lidocaine Gel Depth: Down to and including healthy tissue and in the subcutaneous layer Percentage of wound debrided: 100 Instrument Used: 5mm curette Tissue Removed: Slough and devitalized tissue Severity: Fat Layer Exposed Amount of bleeding with debridement: Mild Bleeding Controlled with: Pressure Patient tolerated procedure: Patient tolerated procedure well Post-Debridement Measurements and Additional Note: Post-Debridement Measurements/Treatment - Nurse 1 - General Ulcer Assessment Start: 01/17/23 09:50 Freq: Status: Active Protocol: CLOVIS Activity Type Activity Date Activity User E-sign Co-sign Detail Recorded Client Recorded Date Recorded By Document 01/17/23 09:59 JF [id number] 01/17/23 10:00 JF Document 01/24/23 09:02 KW [id number] 01/24/23 09:20 KW 01/17/23 01/24/23 09:59 09:02 - Today's Visit Information Type of service Follow-up Visit Follow-up Visit (Physician/BOTANY LABORATORY ASSISTANT (Physician/BOTANY LABORATORY ASSISTANT ) ) Arrival Mode Wheelchair Wheelchair Patient Identification Verified (Name & Yes Yes ) Patient Requires Transmission-Based No No Precautions Finger Stick Blood Sugar(mg/dl) (if 184 indicated): Blood Sugar Stated by Patient Vital Signs Temperature (97.8 F-99.1 F) 96.2 F L 96.5 F L Temperature Source Temporal Temporal Pulse Rate (60-100) 63 72 Pulse Location Monitor Monitor Respiratory Rate (12-18) 16 18 Respiratory rate source Observation Observation Oxygen Delivery Method Room Air Blood Pressure (90/60-120/80) 102/72 95/46 L Blood Pressure Mean (mm Hg) 82 62 Source Monitor Monitor Position Sitting Semi-Fowlers Blood Pressure Location Right Arm Right Arm History Since Last Visit- (Skip if this is Patient's initial visit) Have you changed medications since your No No last visit? Any new allergies or adverse reactions No No Had a fall/change in ADL's that may No No increase risk of falls Signs or symptoms of abuse and/or No No neglect since last visit Have you been in the hospital since your No No last visit? Has dressing in place as prescribed Yes Yes Has compression in place as prescribed Yes Yes Has offloadiing in place as prescribed N/A Experienced any changes in pain level or No management Left Footwear No Footwear Removable Cast Walker/Walking Boot Right Footwear Slipper Slipper Pain Scale: 0-10 Numeric Is Patient Pain Free? Yes No LLE -Description Dull,Throbbing -Intensity 8 -Duration (hours) Acute -Pain Behavior No Change in Behavior -Alleviating Factors/Interventions None WC - Nurse 1 - General Ulcer Measurement Start: 01/17/23 09:50 Freq: Status: Active Protocol: Activity Type Activity Date Activity User E-sign Co-sign Detail Recorded Client Recorded Date Recorded By Document 01/17/23 09:59 [id number] 01/17/23 10:00 JF Document 01/24/23 09:02 KW [id number] 01/24/23 09:20 KW 01/17/23 01/24/23 09:59 09:02 Wound Center Nurse 1 #1 R Lat Ankle -Combined with other wound No -Current Size (cm) - Length 1.2 1.4 -Current Size (cm) - Width 0.9 1.0 -Current Size (cm) - Depth 0.1 0.3 -Total Square Cm 1.08 1.40 -Date of Last Picture (Recall this 01/24/23 field) -Photo Taken Yes Yes -Epithelialization Small 1-33% Small 1-33% -Tunneling No -Undermining/Tunneling No -Circular Undermining No -Exudate Amt Small Small -Exudate Type Serosanguineous Yellow/Green -Wound Margin Flat & Intact Distinct, Outline Attached -Granulation Amt Medium (34-66%) Small (1-33%) -Granulation Quality Red [place] -Slough/Fibrin Yes -Necrosis Amt Medium (34-66%) Small (1-33%) -Necrotic Tissue Type Eschar Adherent Slough -Structure Exposed N/A -Texture (Lori-wound Skin Appearance) Assessed, Assessed Localized Edema -Moisture (Lori-wound Skin Appearance) Assessed,Dry/ Assessed,Dry/ Scaly Scaly -Color (Lori-wound Skin Appearance) Assessed Assessed -Temperature (Lori-wound Skin No Abnormality No Abnormality Appearance) (Pt Warm) (Pt Warm) -Tenderness on Palpation (Lori-wound No No Skin Appearance) -Ulcer Cleansing Wound Cleanser Soap and Water -Foul Odor after Cleansing No No -Anesthetic Used 5% Lidocaine 5% Lidocaine Gel Gel Lower Limb Edema Present Yes Yes Right Calf (cm) 37.7 36.2 Right Ankle (cm) 21.2 22.0 WC - Nurse 2 - General Ulcer CM Notes Start: 01/17/23 09:50 Freq: Status: Active Protocol: Activity Type Activity Date Activity User E-sign Co-sign Detail Recorded Client Recorded Date Recorded By Document 01/17/23 10:11 MW [id number] 01/17/23 10:20 MW Document 01/24/23 09:52 MW [id number] 01/24/23 09:54 MW 01/17/23 01/24/23 10:11 09:52 Wound Center Nurse 2 #1 R Lat Ankle -Time 10:11 09:45 -Correct Patient Yes Yes -Correct Side, Site, Position Yes Yes -Correct Procedure Yes Yes -Procedure Performed Yes Yes -Type of Procedure Debridement Debridement -Clinical Debridement Subcutaneous Subcutaneous -Tissue Removed Subcutaneous Subcutaneous -Post Debridement (cm) - Length 1.4 1.3 -Post Debridement (cm) - Width 0.7 0.8 -Post Debridement (cm) - Depth 0.2 0.2 -Total Square (Post) (cm) 0.98 1.04 -Area of Debridement (cm) - Length 1.4 1.3 -Area of Debridement (cm) - Width 0.7 0.8 -Total Square (Area) (cm) 0.98 1.04 -Tunneling No No -Undermining/Tunneling No No -Circular Undermining No No -Wound/Ulcer Outcome Not Healed Not Healed -Ulcer Cleansing Rinsed/ Rinsed/ Irrigated with Irrigated with Saline Saline -Foul Odor after Cleansing No No -Bioengineered Tissue Yes Yes -Type of Bioengineered Tissue Epifix 18mm Epifix 18mm Disc Disc -Expiration Date 11/13/27 11/13/27 -Product Lot Number [id number] -Percent Used 100 100 -Lot number of Saline Used [id number] -Bleeding Controlled with Pressure Pressure -Treatment Response Procedure Procedure Tolerated Well Tolerated Well -Offloading No No -Debridement - Subq, 1st 20sq cm No No -Apply Skin Sub - 1st 25 sq cm - Legs 1 1 -Epifix 18mm Disc 3 3 Pain Scale: 0-10 Numeric Is Patient Pain Free? Yes Yes WC - Nurse 3 - General Ulcer D/C NN Start: 01/17/23 09:50 Freq: Status: Active Protocol: Activity Type Activity Date Activity User E-sign Co-sign Detail Recorded Client Recorded Date Recorded By Document 01/17/23 12:06 [id number] 01/17/23 12:07 JF Document 01/24/23 10:01 [id number] 01/24/23 10:02 01/17/23 01/24/23 12:06 10:01 Wound Care Center Nurse 3 #1 R Lat Ankle -Ulcer Cleansing Rinsed/ Rinsed/ Irrigated with Irrigated with Saline Saline -Foul Odor after Cleansing No -Primary Dressing Covered/Secured with Dry Gauze Dry Gauze Lori-Wound Care Barrier Right -Lotion applied to leg before Yes Yes compression wrap -Multi-Layered Wrap Application Multi-Layer Multi-Layer Comp - Right ($ Comp - Right ($ ) ) Pain Scale: 0-10 Numeric Is Patient Pain Free? Yes Yes WC - Visit Discharge Discharge Condition Stable Stable Ambulatory Status Wheelchair Wheelchair Transportation [employer] Medication Reconcilliation completed & Yes Yes provided to patient/care provider Clinical Summary of Care Provided Yes Yes Assessment/Plan Assessment/Plan (1) 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: CODE(S): L97.312 - Non-pressure chronic ulcer of right ankle with fat layer exposed (2) Insulin dependent diabetes mellitus: (3) Tobacco abuse: CODE(S): Z72.0 - Tobacco use PLAN: Plan Debridement done as documented above, procedure was well-tolerated. No significant change this week. 8th application of EpiFix done using 100% of product. Moistened with hydrogel, covered with wound veil and secured with Steri-Strips. Leave dressing in place for a week. May change outer dressing if needed. Continue 3M wrap for edema management, change on Saturday at the facility. Prealbumin is low, recommend protein supplements. Her questions were answered and she was advised to call with any further questions or concerns. Follow up in 1 week. This note was generated with [employer] dictation software. It may contain incorrect words, spelling, and punctuation that were not noted in checking the note before signing.
[2023-01-31 08:45] VITALS: BP 103/50; PULSE 80; RESP 18; TEMP 36.3
--- NOTE | 2023-01-31 10:00 | PCM.WC.PN ---
History of Present Illness Date of Service: 01/31/23 Chief Complaint: Non healing right ankle ulcer History of Wound: Ms. Lam is a 62-year-old who was referred to this facility due to nonhealing right lateral ankle ulcer. Noted a year ago, started out as a bullae and subsequently opened up. She states that over the years, she has had alginate and collagen dressings done at her facility without any significant improvement. History of diabetes mellitus, she is not sure of her most recent A1c but states that it has ranged from 8-13. Also history of tobacco use, smokes daily. There is significant pain around the ulcer but she denies otherwise significant leg pain. Does not wear compression. Sleep sedentary but sleeps in the bed. She feels well otherwise, no chills, fever, nausea, vomiting or change in bowel habit reported. Progress of Wound: Has had 8 Epifix applications so far. Also seen by Vascular surgery. No acute concerns at this time. Some improvement noted this week. Objective Data Objective Data Vital Signs: Vital Signs Temp Pulse Resp BP O2 Del Method 97.4 F L 80 18 103/50 L Room Air 01/31/23 08:45 01/31/23 08:45 01/31/23 08:45 01/31/23 08:45 01/24/23 09:02 Oxygen Delivery Method Room Air Charges/Coding Procedures Integumentary 150xxx-152xx: 07689 Skin sub graft trnk/arm/leg Physical Exam Const alert, oriented x3 and no apparent distress General Appearance: cooperative, comfortable and well kempt HEENT normocephalic and head/scalp atraumatic Eyes EOMs intact bilaterally General Eye: normal appearance of both eyes Neck full ROM and supple General: normal visual inspection Resp normal respiratory effort Effort and Inspection: able to speak in complete sentences Extremity General Extremity: edema Skin Wounds: wounds noted Neuro oriented x3, CN's II-XII intact bilaterally and moves all extremities Psych mental status grossly normal, thought process normal, cooperative and affect normal Debridement Note Debridement Note Wound debrided: Right lateral foot/ankle Type of Debridement: Excisional debridement Anesthesia Used: 5% Lidocaine Gel Depth: Down to and including healthy tissue and in the subcutaneous layer Percentage of wound debrided: 100 Instrument Used: 5mm curette Tissue Removed: Slough and devitalized tissue Severity: Fat Layer Exposed Amount of bleeding with debridement: Mild Bleeding Controlled with: Pressure Patient tolerated procedure: Patient tolerated procedure well Post-Debridement Measurements and Additional Note: Post-Debridement Measurements/Treatment - Nurse 1 - General Ulcer Assessment Start: 01/17/23 09:50 Freq: Status: Active Protocol: CLOVIS Activity Type Activity Date Activity User E-sign Co-sign Detail Recorded Client Recorded Date Recorded By Document 01/17/23 09:59 JF [id number] 01/17/23 10:00 JF Document 01/24/23 09:02 KW [id number] 01/24/23 09:20 KW Document 01/31/23 08:45 RB [id number] 01/31/23 08:51 RB 01/17/23 01/24/23 01/31/23 09:59 09:02 08:45 - Today's Visit Information Type of service Follow-up Visit Follow-up Visit Follow-up Visit (Physician/ARMOR RECONNAISSANCE SPECIALIST (Physician/ARMOR RECONNAISSANCE SPECIALIST (Physician/ARMOR RECONNAISSANCE SPECIALIST ) ) ) Arrival Mode Wheelchair Wheelchair Wheelchair Transfer Assistance None Patient Identification Verified (Name & Yes Yes Yes ) Patient Requires Transmission-Based No No No Precautions Finger Stick Blood Sugar(mg/dl) (if 184 indicated): Blood Sugar Stated by Patient Vital Signs Temperature (97.8 F-99.1 F) 96.2 F L 96.5 F L 97.4 F L Temperature Source Temporal Temporal Temporal Pulse Rate (60-100) 63 72 80 Pulse Location Monitor Monitor Monitor Respiratory Rate (12-18) 16 18 18 Respiratory rate source Observation Observation Observation Oxygen Delivery Method Room Air Blood Pressure (90/60-120/80) 102/72 95/46 L 103/50 L Blood Pressure Mean (mm Hg) 82 62 67 Source Monitor Monitor Monitor Position Sitting Semi-Fowlers Semi-Fowlers Blood Pressure Location Right Arm Right Arm Left Arm History Since Last Visit- (Skip if this is Patient's initial visit) Have you changed medications since your No No No last visit? Any new allergies or adverse reactions No No No Had a fall/change in ADL's that may No No No increase risk of falls Signs or symptoms of abuse and/or No No No neglect since last visit Have you been in the hospital since your No No No last visit? Has dressing in place as prescribed Yes Yes Yes Has compression in place as prescribed Yes Yes Yes Has offloadiing in place as prescribed N/A No Experienced any changes in pain level or No No management Left Footwear No Footwear Removable Cast Walker/Walking Boot Right Footwear Slipper Slipper Pain Scale: 0-10 Numeric Is Patient Pain Free? Yes No Yes LLE -Description Dull,Throbbing -Intensity 8 -Duration (hours) Acute -Pain Behavior No Change in Behavior -Alleviating Factors/Interventions None WC - Nurse 1 - General Ulcer Measurement Start: 01/17/23 09:50 Freq: Status: Active Protocol: Activity Type Activity Date Activity User E-sign Co-sign Detail Recorded Client Recorded Date Recorded By Document 01/17/23 09:59 JF [id number] 01/17/23 10:00 JF Document 01/24/23 09:02 KW [id number] 01/24/23 09:20 KW Document 01/31/23 08:45 RB [id number] 01/31/23 08:51 RB 01/17/23 01/24/23 01/31/23 09:59 09:02 08:45 Wound Center Nurse 1 #1 R Lat Ankle -Combined with other wound No No -Current Size (cm) - Length 1.2 1.4 0.9 -Current Size (cm) - Width 0.9 1.0 0.7 -Current Size (cm) - Depth 0.1 0.3 0.2 -Total Square Cm 1.08 1.40 0.63 -Date of Last Picture (Recall this 01/24/23 field) -Photo Taken Yes Yes -Epithelialization Small 1-33% Small 1-33% -Tunneling No -Undermining/Tunneling No -Circular Undermining No -Exudate Amt Small Small Small -Exudate Type Serosanguineous Yellow/Green Serosanguineous -Wound Margin Flat & Intact Distinct, Distinct, Outline Outline Attached Attached -Granulation Amt Medium (34-66%) Small (1-33%) Medium (34-66%) -Granulation Quality Red [place] -Slough/Fibrin Yes -Necrosis Amt Medium (34-66%) Small (1-33%) None Present (0 %) -Necrotic Tissue Type Eschar Adherent Slough -Structure Exposed N/A N/A -Texture (Lori-wound Skin Appearance) Assessed, Assessed Scarring Localized Edema -Moisture (Lori-wound Skin Appearance) Assessed,Dry/ Assessed,Dry/ No Abnormality Scaly Scaly -Color (Lori-wound Skin Appearance) Assessed Assessed Hemosiderin Staining -Temperature (Lori-wound Skin No Abnormality No Abnormality No Abnormality Appearance) (Pt Warm) (Pt Warm) (Pt Warm) -Tenderness on Palpation (Lori-wound No No No Skin Appearance) -Ulcer Cleansing Wound Cleanser Soap and Water Soap and Water -Foul Odor after Cleansing No No No -Anesthetic Used 5% Lidocaine 5% Lidocaine 5% Lidocaine Gel Gel Gel Lower Limb Edema Present Yes Yes Right Calf (cm) 37.7 36.2 36 Right Ankle (cm) 21.2 22.0 21.8 WC - Nurse 2 - General Ulcer CM Notes Start: 01/17/23 09:50 Freq: Status: Active Protocol: Activity Type Activity Date Activity User E-sign Co-sign Detail Recorded Client Recorded Date Recorded By Document 01/17/23 10:11 MW [id number] 01/17/23 10:20 MW Document 01/24/23 09:52 MW [id number] 01/24/23 09:54 MW Document 01/31/23 09:28 MW [id number] 01/31/23 09:36 MW 01/17/23 01/24/23 01/31/23 10:11 09:52 09:28 Wound Center Nurse 2 #1 R Lat Ankle -Time 10:11 09:45 09:28 -Correct Patient Yes Yes Yes -Correct Side, Site, Position Yes Yes Yes -Correct Procedure Yes Yes Yes -Procedure Performed Yes Yes Yes -Type of Procedure Debridement Debridement Debridement -Clinical Debridement Subcutaneous Subcutaneous Subcutaneous -Tissue Removed Subcutaneous Subcutaneous Subcutaneous -Post Debridement (cm) - Length 1.4 1.3 1.2 -Post Debridement (cm) - Width 0.7 0.8 0.6 -Post Debridement (cm) - Depth 0.2 0.2 0.2 -Total Square (Post) (cm) 0.98 1.04 0.72 -Area of Debridement (cm) - Length 1.4 1.3 1.2 -Area of Debridement (cm) - Width 0.7 0.8 0.6 -Total Square (Area) (cm) 0.98 1.04 0.72 -Tunneling No No No -Undermining/Tunneling No No No -Circular Undermining No No No -Wound/Ulcer Outcome Not Healed Not Healed Not Healed -Ulcer Cleansing Rinsed/ Rinsed/ Rinsed/ Irrigated with Irrigated with Irrigated with Saline Saline Saline -Foul Odor after Cleansing No No No -Bioengineered Tissue Yes Yes Yes -Type of Bioengineered Tissue Epifix 18mm Epifix 18mm Epifix 18mm Disc Disc Disc -Expiration Date 11/13/27 11/13/27 12/14/27 -Product Lot Number [id number] -Percent Used 100 100 100 -Lot number of Saline Used [id number] -Bleeding Controlled with Pressure Pressure Pressure -Treatment Response Procedure Procedure Procedure Tolerated Well Tolerated Well Tolerated Well -Offloading No No No -Debridement - Subq, 1st 20sq cm No No No -Apply Skin Sub - 1st 25 sq cm - Legs 1 1 1 -Epifix 18mm Disc 3 3 3 Pain Scale: 0-10 Numeric Is Patient Pain Free? Yes Yes Yes - Nurse 3 - General Ulcer D/C NN Start: 01/17/23 09:50 Freq: Status: Active Protocol: Activity Type Activity Date Activity User E-sign Co-sign Detail Recorded Client Recorded Date Recorded By Document 01/17/23 12:06 [id number] 01/17/23 12:07 Document 01/24/23 10:01 [id number] 01/24/23 10:02 Document 01/31/23 09:49 RB [id number] 01/31/23 09:50 RB 01/17/23 01/24/23 01/31/23 12:06 10:01 09:49 Wound Care Center Nurse 3 #1 R Lat Ankle -Ulcer Cleansing Rinsed/ Rinsed/ Irrigated with Irrigated with Saline Saline -Foul Odor after Cleansing No -Primary Dressing Covered/Secured with Dry Gauze Dry Gauze Dry Gauze Lori-Wound Care Barrier Right -Lotion applied to leg before Yes Yes compression wrap -Multi-Layered Wrap Application Multi-Layer Multi-Layer Multi-Layer Comp - Right ($ Comp - Right ($ Comp - Right ($ ) ) ) Treatment Response Procedure Tolerated Well Pain Scale: 0-10 Numeric Is Patient Pain Free? Yes Yes Yes WC - Visit Discharge Discharge Condition Stable Stable Stable Ambulatory Status Wheelchair Wheelchair Wheelchair Transportation [employer] Medication Reconcilliation completed & Yes Yes No provided to patient/care provider Clinical Summary of Care Provided Yes Yes Yes Assessment/Plan Assessment/Plan (1) 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: CODE(S): L97.312 - Non-pressure chronic ulcer of right ankle with fat layer exposed (2) Insulin dependent diabetes mellitus: (3) Tobacco abuse: CODE(S): Z72.0 - Tobacco use PLAN: Plan Debridement done as documented above, procedure was well-tolerated. Some improvement noted. 9th application of EpiFix done using 100% of product. Moistened with hydrogel, covered with wound veil and secured with Steri-Strips. Leave dressing in place for a week. May change outer dressing if needed. Continue 3M wrap for edema management, change on Saturday at the facility. Prealbumin is low, recommend protein supplements. Her questions were answered and she was advised to call with any further questions or concerns. Follow up in 1 week. This note was generated with [employer] dictation software. It may contain incorrect words, spelling, and punctuation that were not noted in checking the note before signing.
[2023-02-07 09:16] VITALS: BP 106/55; PULSE 72; RESP 18; TEMP 36.1
--- NOTE | 2023-02-07 11:35 | PCM.WC.PN ---
History of Present Illness Date of Service: 02/07/23 Chief Complaint: Non healing right ankle ulcer History of Wound: Ms. Lam is a 62-year-old who was referred to this facility due to nonhealing right lateral ankle ulcer. Noted a year ago, started out as a bullae and subsequently opened up. She states that over the years, she has had alginate and collagen dressings done at her facility without any significant improvement. History of diabetes mellitus, she is not sure of her most recent A1c but states that it has ranged from 8-13. Also history of tobacco use, smokes daily. There is significant pain around the ulcer but she denies otherwise significant leg pain. Does not wear compression. Sleep sedentary but sleeps in the bed. She feels well otherwise, no chills, fever, nausea, vomiting or change in bowel habit reported. Progress of Wound: Has had 9 Epifix applications so far. Also seen by Vascular surgery. No acute concerns at this time. Objective Data Objective Data Vital Signs: Vital Signs Temp Pulse Resp BP O2 Del Method 97 F L 72 18 106/55 L Room Air 02/07/23 09:16 02/07/23 09:16 02/07/23 09:16 02/07/23 09:16 01/24/23 09:02 Oxygen Delivery Method Room Air Charges/Coding Procedures Integumentary 150xxx-152xx: [id number] Skin sub graft trnk/arm/leg Physical Exam Const alert, oriented x3 and no apparent distress General Appearance: cooperative, comfortable and well kempt HEENT normocephalic and head/scalp atraumatic Eyes EOMs intact bilaterally General Eye: normal appearance of both eyes Neck full ROM and supple General: normal visual inspection Resp normal respiratory effort Effort and Inspection: able to speak in complete sentences Extremity General Extremity: edema Skin Wounds: wounds noted Neuro oriented x3, CN's II-XII intact bilaterally and moves all extremities Psych mental status grossly normal, thought process normal, cooperative and affect normal Debridement Note Debridement Note Wound debrided: Right lateral foot/ankle Type of Debridement: Excisional debridement Anesthesia Used: 5% Lidocaine Gel Depth: Down to and including healthy tissue and in the subcutaneous layer Percentage of wound debrided: 100 Instrument Used: 3mm curette Tissue Removed: Slough and devitalized tissue Severity: Fat Layer Exposed Amount of bleeding with debridement: Mild Bleeding Controlled with: Pressure Patient tolerated procedure: Patient tolerated procedure well Post-Debridement Measurements and Additional Note: Post-Debridement Measurements/Treatment - Nurse 1 - General Ulcer Assessment Start: 01/17/23 09:50 Freq: Status: Active Protocol: CLOVIS Activity Type Activity Date Activity User E-sign Co-sign Detail Recorded Client Recorded Date Recorded By Document 01/17/23 09:59 JF [id number] 01/17/23 10:00 JF Document 01/24/23 09:02 KW [id number] 01/24/23 09:20 KW Document 01/31/23 08:45 RB [id number] 01/31/23 08:51 RB Document 02/07/23 09:16 RB [id number] 02/07/23 09:17 RB 01/17/23 01/24/23 01/31/23 09:59 09:02 08:45 - Today's Visit Information Type of service Follow-up Visit Follow-up Visit Follow-up Visit (Physician/WEIGHT REDUCTION SPECIALIST (Physician/WEIGHT REDUCTION SPECIALIST (Physician/WEIGHT REDUCTION SPECIALIST ) ) ) Arrival Mode Wheelchair Wheelchair Wheelchair Transfer Assistance None Patient Identification Verified (Name & Yes Yes Yes ) Patient Requires Transmission-Based No No No Precautions Finger Stick Blood Sugar(mg/dl) (if 184 indicated): Blood Sugar Stated by Patient Vital Signs Temperature (97.8 F-99.1 F) 96.2 F L 96.5 F L 97.4 F L Temperature Source Temporal Temporal Temporal Pulse Rate (60-100) 63 72 80 Pulse Location Monitor Monitor Monitor Respiratory Rate (12-18) 16 18 18 Respiratory rate source Observation Observation Observation Oxygen Delivery Method Room Air Blood Pressure (90/60-120/80) 102/72 95/46 L 103/50 L Blood Pressure Mean (mm Hg) 82 62 67 Source Monitor Monitor Monitor Position Sitting Semi-Fowlers Semi-Fowlers Blood Pressure Location Right Arm Right Arm Left Arm History Since Last Visit- (Skip if this is Patient's initial visit) Have you changed medications since your No No No last visit? Any new allergies or adverse reactions No No No Had a fall/change in ADL's that may No No No increase risk of falls Signs or symptoms of abuse and/or No No No neglect since last visit Have you been in the hospital since your No No No last visit? Has dressing in place as prescribed Yes Yes Yes Has compression in place as prescribed Yes Yes Yes Has offloadiing in place as prescribed N/A No Experienced any changes in pain level or No No management Left Footwear No Footwear Removable Cast Walker/Walking Boot Right Footwear Slipper Slipper Pain Scale: 0-10 Numeric Is Patient Pain Free? Yes No Yes LLE -Description Dull,Throbbing -Intensity 8 -Duration (hours) Acute -Pain Behavior No Change in Behavior -Alleviating Factors/Interventions None 02/07/23 09:16 - Today's Visit Information Type of service Follow-up Visit (Physician/WEIGHT REDUCTION SPECIALIST ) Arrival Mode Wheelchair Transfer Assistance None Patient Identification Verified (Name & Yes ) Patient Requires Transmission-Based No Precautions Finger Stick Blood Sugar(mg/dl) (if 98 indicated): Blood Sugar Stated by Patient Vital Signs Temperature (97.8 F-99.1 F) 97 F L Temperature Source Temporal Pulse Rate (60-100) 72 Pulse Location Monitor Respiratory Rate (12-18) 18 Respiratory rate source Observation Oxygen Delivery Method Blood Pressure (90/60-120/80) 106/55 L Blood Pressure Mean (mm Hg) 72 Source Monitor Position Semi-Fowlers Blood Pressure Location Left Arm History Since Last Visit- (Skip if this is Patient's initial visit) Have you changed medications since your No last visit? Any new allergies or adverse reactions No Had a fall/change in ADL's that may No increase risk of falls Signs or symptoms of abuse and/or No neglect since last visit Have you been in the hospital since your No last visit? Has dressing in place as prescribed Yes Has compression in place as prescribed No Has offloadiing in place as prescribed No Experienced any changes in pain level or No management Left Footwear Right Footwear Pain Scale: 0-10 Numeric Is Patient Pain Free? Yes LLE -Description -Intensity -Duration (hours) -Pain Behavior -Alleviating Factors/Interventions - Nurse 1 - General Ulcer Measurement Start: 01/17/23 09:50 Freq: Status: Active Protocol: Activity Type Activity Date Activity User E-sign Co-sign Detail Recorded Client Recorded Date Recorded By Document 01/17/23 09:59 [id number] 01/17/23 10:00 Document 01/24/23 09:02 KW [id number] 01/24/23 09:20 KW Document 01/31/23 08:45 RB [id number] 01/31/23 08:51 RB Document 02/07/23 09:16 RB [id number] 02/07/23 09:17 RB 01/17/23 01/24/23 01/31/23 09:59 09:02 08:45 Wound Center Nurse 1 #1 R Lat Ankle -Combined with other wound No No -Current Size (cm) - Length 1.2 1.4 0.9 -Current Size (cm) - Width 0.9 1.0 0.7 -Current Size (cm) - Depth 0.1 0.3 0.2 -Total Square Cm 1.08 1.40 0.63 -Date of Last Picture (Recall this 01/24/23 field) -Photo Taken Yes Yes -Epithelialization Small 1-33% Small 1-33% -Tunneling No -Undermining/Tunneling No -Circular Undermining No -Exudate Amt Small Small Small -Exudate Type Serosanguineous Yellow/Green Serosanguineous -Wound Margin Flat & Intact Distinct, Distinct, Outline Outline Attached Attached -Granulation Amt Medium (34-66%) Small (1-33%) Medium (34-66%) -Granulation Quality Red Ezel Ezel -Slough/Fibrin Yes -Necrosis Amt Medium (34-66%) Small (1-33%) None Present (0 %) -Necrotic Tissue Type Eschar Adherent Slough -Structure Exposed N/A N/A -Texture (Lori-wound Skin Appearance) Assessed, Assessed Scarring Localized Edema -Moisture (Lori-wound Skin Appearance) Assessed,Dry/ Assessed,Dry/ No Abnormality Scaly Scaly -Color (Lori-wound Skin Appearance) Assessed Assessed Hemosiderin Staining -Temperature (Lori-wound Skin No Abnormality No Abnormality No Abnormality Appearance) (Pt Warm) (Pt Warm) (Pt Warm) -Tenderness on Palpation (Lori-wound No No No Skin Appearance) -Ulcer Cleansing Wound Cleanser Soap and Water Soap and Water -Foul Odor after Cleansing No No No -Anesthetic Used 5% Lidocaine 5% Lidocaine 5% Lidocaine Gel Gel Gel Lower Limb Edema Present Yes Yes Right Calf (cm) 37.7 36.2 36 Right Ankle (cm) 21.2 22.0 21.8 02/07/23 09:16 Wound Center Nurse 1 #1 R Lat Ankle -Combined with other wound No -Current Size (cm) - Length 1 -Current Size (cm) - Width 0.6 -Current Size (cm) - Depth 0.2 -Total Square Cm 0.6 -Date of Last Picture (Recall this field) -Photo Taken -Epithelialization -Tunneling -Undermining/Tunneling No -Circular Undermining No -Exudate Amt Medium -Exudate Type Serosanguineous -Wound Margin Thickened & Rolled Under -Granulation Amt Medium (34-66%) -Granulation Quality Pale -Slough/Fibrin Yes -Necrosis Amt Large (67-100%) -Necrotic Tissue Type Adherent Slough -Structure Exposed N/A -Texture (Lori-wound Skin Appearance) Assessed -Moisture (Lori-wound Skin Appearance) Assessed -Color (Lori-wound Skin Appearance) Hemosiderin Staining -Temperature (Lori-wound Skin No Abnormality Appearance) (Pt Warm) -Tenderness on Palpation (Lori-wound No Skin Appearance) -Ulcer Cleansing Wound Cleanser -Foul Odor after Cleansing No -Anesthetic Used 5% Lidocaine Gel Lower Limb Edema Present Yes Right Calf (cm) 35 Right Ankle (cm) 22.5 WC - Nurse 2 - General Ulcer CM Notes Start: 01/17/23 09:50 Freq: Status: Active Protocol: Activity Type Activity Date Activity User E-sign Co-sign Detail Recorded Client Recorded Date Recorded By Document 01/17/23 10:11 MW [id number] 01/17/23 10:20 MW Document 01/24/23 09:52 MW [id number] 01/24/23 09:54 MW Document 01/31/23 09:28 MW [id number] 01/31/23 09:36 MW Document 02/07/23 10:00 MW [id number] 02/07/23 10:08 MW 01/17/23 01/24/23 01/31/23 10:11 09:52 09:28 Wound Center Nurse 2 #1 R Lat Ankle -Time 10:11 09:45 09:28 -Correct Patient Yes Yes Yes -Correct Side, Site, Position Yes Yes Yes -Correct Procedure Yes Yes Yes -Procedure Performed Yes Yes Yes -Type of Procedure Debridement Debridement Debridement -Clinical Debridement Subcutaneous Subcutaneous Subcutaneous -Tissue Removed Subcutaneous Subcutaneous Subcutaneous -Post Debridement (cm) - Length 1.4 1.3 1.2 -Post Debridement (cm) - Width 0.7 0.8 0.6 -Post Debridement (cm) - Depth 0.2 0.2 0.2 -Total Square (Post) (cm) 0.98 1.04 0.72 -Area of Debridement (cm) - Length 1.4 1.3 1.2 -Area of Debridement (cm) - Width 0.7 0.8 0.6 -Total Square (Area) (cm) 0.98 1.04 0.72 -Tunneling No No No -Undermining/Tunneling No No No -Circular Undermining No No No -Wound/Ulcer Outcome Not Healed Not Healed Not Healed -Ulcer Cleansing Rinsed/ Rinsed/ Rinsed/ Irrigated with Irrigated with Irrigated with Saline Saline Saline -Foul Odor after Cleansing No No No -Bioengineered Tissue Yes Yes Yes -Type of Bioengineered Tissue Epifix 18mm Epifix 18mm Epifix 18mm Disc Disc Disc -Expiration Date 11/13/27 11/13/27 12/14/27 -Product Lot Number [id number] -Percent Used 100 100 100 -Lot number of Saline Used [id number] -Bleeding Controlled with Pressure Pressure Pressure -Treatment Response Procedure Procedure Procedure Tolerated Well Tolerated Well Tolerated Well -Offloading No No No -Debridement - Subq, 1st 20sq cm No No No -Apply Skin Sub - 1st 25 sq cm - Legs 1 1 1 -Apply Skin Sub - each addt'l 25 sq cm - Feet -Epifix 18mm Disc 3 3 3 Pain Scale: 0-10 Numeric Is Patient Pain Free? Yes Yes Yes 02/07/23 10:00 Wound Center Nurse 2 #1 R Lat Ankle -Time 10:01 -Correct Patient Yes -Correct Side, Site, Position Yes -Correct Procedure Yes -Procedure Performed Yes -Type of Procedure Debridement -Clinical Debridement Subcutaneous -Tissue Removed Subcutaneous -Post Debridement (cm) - Length 1.5 -Post Debridement (cm) - Width 1.0 -Post Debridement (cm) - Depth 0.2 -Total Square (Post) (cm) 1.50 -Area of Debridement (cm) - Length 1.5 -Area of Debridement (cm) - Width 1.0 -Total Square (Area) (cm) 1.50 -Tunneling No -Undermining/Tunneling No -Circular Undermining No -Wound/Ulcer Outcome Not Healed -Ulcer Cleansing Rinsed/ Irrigated with Saline -Foul Odor after Cleansing No -Bioengineered Tissue Yes -Type of Bioengineered Tissue Epifix 18mm Disc -Expiration Date 11/13/27 -Product Lot Number [id number] -Percent Used 100 -Lot number of Saline Used [id number] -Bleeding Controlled with Pressure -Treatment Response Procedure Tolerated Well -Offloading No -Debridement - Subq, 1st 20sq cm No -Apply Skin Sub - 1st 25 sq cm - Legs -Apply Skin Sub - each addt'l 25 sq cm 1 - Feet -Epifix 18mm Disc 3 Pain Scale: 0-10 Numeric Is Patient Pain Free? Yes - Nurse 3 - General Ulcer D/C NN Start: 01/17/23 09:50 Freq: Status: Active Protocol: Activity Type Activity Date Activity User E-sign Co-sign Detail Recorded Client Recorded Date Recorded By Document 01/17/23 12:06 [id number] 01/17/23 12:07 Document 01/24/23 10:01 [id number] 01/24/23 10:02 Document 01/31/23 09:49 RB [id number] 01/31/23 09:50 RB Document 02/07/23 10:22 RB [id number] 02/07/23 10:23 RB 01/17/23 01/24/23 01/31/23 12:06 10:01 09:49 Wound Care Center Nurse 3 #1 R Lat Ankle -Ulcer Cleansing Rinsed/ Rinsed/ Irrigated with Irrigated with Saline Saline -Foul Odor after Cleansing No -Primary Dressing Applied -Primary Dressing Covered/Secured with Dry Gauze Dry Gauze Dry Gauze -Aquacel Extra Lori-Wound Care Barrier Right -Lotion applied to leg before Yes Yes compression wrap -Multi-Layered Wrap Application Multi-Layer Multi-Layer Multi-Layer Comp - Right ($ Comp - Right ($ Comp - Right ($ ) ) ) Treatment Response Procedure Tolerated Well Pain Scale: 0-10 Numeric Is Patient Pain Free? Yes Yes Yes WC - Visit Discharge Discharge Condition Stable Stable Stable Ambulatory Status Wheelchair Wheelchair Wheelchair Transportation [employer] Medication Reconcilliation completed & Yes Yes No provided to patient/care provider Clinical Summary of Care Provided Yes Yes Yes 02/07/23 10:22 Wound Care Center Nurse 3 #1 R Lat Ankle -Ulcer Cleansing -Foul Odor after Cleansing -Primary Dressing Applied Aquacel Extra -Primary Dressing Covered/Secured with Dry Gauze -Aquacel Extra 1 Lori-Wound Care Right -Lotion applied to leg before compression wrap -Multi-Layered Wrap Application Multi-Layer Comp - Right ($ ) Treatment Response Procedure Tolerated Well Pain Scale: 0-10 Numeric Is Patient Pain Free? 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 Appears a little moist today, no maceration. 10th application of Epifix done today using 100% of product, moistened with saline, covered with wound veil and secured with Steri-Strips. Leave dressing in place for 2 weeks. Aquacel extra to help with moisture. May change outer dressing if needed. Continue 3M wrap for edema management, change on Saturday at the facility. Her questions were answered and she was advised to call with any further questions or concerns. Follow up in 1 week for a nurse visit and with me in 2 weeks. This note was generated with [employer] dictation software. It may contain incorrect words, spelling, and punctuation that were not noted in checking the note before signing.
== END 2023-02-11 23:59 | disposition home or self-care (01) ==
LOC: WC 09:15
PROVIDERS: PCP Internal Medicine; Referring Provider Internal Medicine; Visit Provider Internal Medicine
DX: L97.312 Non-pressure chronic ulcer of right ankle with fat layer exposed (principal); Z87.891 Personal history of nicotine dependence
CPT/HCPCS: 15271; 15275; 15276; 29581; Q4186

== ENCOUNTER 2023-03-14 09:15 | Outpatient (RCR) | payer MEDICARE, MEDICAID, SELFPAY ==
[2023-02-12 00:12] VITALS: BP 106/55; PULSE 72; RESP 18; TEMP 36.1
[2023-02-14 13:12] VITALS: BP 160/49; PULSE 64; RESP 16; TEMP 36.1
[2023-02-21 08:58] VITALS: BP 112/59; PULSE 68; RESP 16; TEMP 35.6
--- NOTE | 2023-02-21 09:25 | PN.PCM_ITS ---
History of Present Illness Date of Service: 02/21/23 Chief Complaint: Non healing right ankle ulcer History of Wound: Ms. Lam is a 62-year-old who was referred to this facility due to nonhealing right lateral ankle ulcer. Noted a year ago, started out as a bullae and subsequently opened up. She states that over the years, she has had alginate and collagen dressings done at her facility without any significant improvement. History of diabetes mellitus, she is not sure of her most recent A1c but states that it has ranged from 8-13. Also history of tobacco use, smokes daily. There is significant pain around the ulcer but she denies otherwise significant leg pain. Does not wear compression. Sleep sedentary but sleeps in the bed. She feels well otherwise, no chills, fever, nausea, vomiting or change in bowel habit reported. Progress of Wound: Has had 10 applications of Epifix with the last left in place x 2 weeks. No new concerns at this time. Objective Data Objective Data Vital Signs: Vital Signs Temp Pulse Resp BP O2 Del Method 96.1 F L 68 16 112/59 L Room Air 02/21/23 08:58 02/21/23 08:58 02/21/23 08:58 02/21/23 08:58 02/21/23 08:58 Oxygen Delivery Method Room Air Charges/Coding Procedures Integumentary 111xxx-113xx: 77240 Carla subq tissue 20 sq cm/< Physical Exam Const alert, oriented x3 and no apparent distress General Appearance: cooperative, comfortable and well kempt HEENT normocephalic and head/scalp atraumatic Eyes EOMs intact bilaterally General Eye: normal appearance of both eyes Neck full ROM and supple General: normal visual inspection Resp normal respiratory effort Effort and Inspection: able to speak in complete sentences Extremity General Extremity: edema Skin Wounds: wounds noted Neuro oriented x3, CN's II-XII intact bilaterally and moves all extremities Psych mental status grossly normal, thought process normal, cooperative and affect normal Debridement Note Debridement Note Wound debrided: Right lateral foot/ankle Type of Debridement: Excisional debridement Anesthesia Used: 5% Lidocaine Gel Depth: Down to and including healthy tissue and in the subcutaneous layer Percentage of wound debrided: 100 Instrument Used: 5mm curette Tissue Removed: Slough and devitalized tissue Severity: Fat Layer Exposed Amount of bleeding with debridement: Mild Bleeding Controlled with: Pressure Patient tolerated procedure: Patient tolerated procedure well Post-Debridement Measurements and Additional Note: Post-Debridement Measurements/Treatment - Nurse 1 - General Ulcer Assessment Start: 02/14/23 13:12 Freq: Status: Active Protocol: CLOVIS Activity Type Activity Date Activity User E-sign Co-sign Detail Recorded Client Recorded Date Recorded By Document 02/14/23 13:12 [facility] [id number] 02/14/23 13:13 [facility] Document 02/21/23 08:58 [facility] [id number] 02/21/23 09:09 BM 02/14/23 02/21/23 13:12 08:58 WC - Today's Visit Information Type of service Nurse-only Follow-up Visit Visit (Physician/MEDICAL DOCTOR MD ) Arrival Mode Wheelchair Wheelchair Transfer Assistance None None Patient Identification Verified (Name & Yes Yes ) Patient Requires Transmission-Based No No Precautions Vital Signs Temperature (97.8 F-99.1 F) 97 F L 96.1 F L Temperature Source Temporal Temporal Pulse Rate (60-100) 64 68 Pulse Location Monitor Monitor Respiratory Rate (12-18) 16 16 Respiratory rate source Observation Observation Oxygen Delivery Method Room Air Room Air Blood Pressure (90/60-120/80) 160/49 H 112/59 L Blood Pressure Mean (mm Hg) 86 76 Source Monitor Monitor Position Sitting Sitting Blood Pressure Location Right Arm Right Arm History Since Last Visit- (Skip if this is Patient's initial visit) Have you changed medications since your No No last visit? Any new allergies or adverse reactions No No Had a fall/change in ADL's that may No No increase risk of falls Signs or symptoms of abuse and/or No No neglect since last visit Have you been in the hospital since your No No last visit? Has dressing in place as prescribed Yes Yes Has compression in place as prescribed Yes Yes Has offloadiing in place as prescribed N/A N/A Experienced any changes in pain level or No No management Left Footwear Slipper Regular Shoe Right Footwear Slipper Regular Shoe Pain Scale: 0-10 Numeric Is Patient Pain Free? Yes Yes RUY Nath Nurse 1 - General Ulcer Measurement Start: 02/14/23 13:12 Freq: Status: Active Protocol: Activity Type Activity Date Activity User E-sign Co-sign Detail Recorded Client Recorded Date Recorded By Document 02/14/23 13:12 [facility] [id number] 02/14/23 13:13 [facility] Document 02/21/23 08:58 [facility] [id number] 02/21/23 09:09 [facility] 02/14/23 02/21/23 13:12 08:58 Wound Center Nurse 1 #1 R Lat Ankle -Combined with other wound No -Current Size (cm) - Length 0.1 -Current Size (cm) - Width 0.1 -Current Size (cm) - Depth 0.1 -Total Square Cm 0.01 -Date of Last Picture (Recall this 02/21/23 field) -Photo Taken Yes -Epithelialization None Present -Tunneling No -Undermining/Tunneling No -Circular Undermining No -Exudate Amt Small -Exudate Type Serosanguineous -Wound Margin Distinct, Outline Attached -Granulation Amt None Present (0 %) -Slough/Fibrin Yes -Necrosis Amt Large (67-100%) -Necrotic Tissue Type Eschar -Texture (Lori-wound Skin Appearance) Assessed, Scarring -Moisture (Lori-wound Skin Appearance) Assessed,Dry/ Scaly -Color (Lori-wound Skin Appearance) Assessed -Temperature (Lori-wound Skin No Abnormality Appearance) (Pt Warm) -Tenderness on Palpation (Lori-wound No Skin Appearance) -Ulcer Cleansing Soap and Water -Foul Odor after Cleansing No -Anesthetic Used 5% Lidocaine Gel -Wound Comment(s) EPIFIX INTACT Lower Limb Edema Present Yes Right Calf (cm) 34.7 Right Ankle (cm) 22 WC - Nurse 2 - General Ulcer CM Notes Start: 02/14/23 13:12 Freq: Status: Active Protocol: Activity Type Activity Date Activity User E-sign Co-sign Detail Recorded Client Recorded Date Recorded By Document 02/21/23 09:20 MW [id number] 02/21/23 09:23 MW 02/21/23 09:20 Wound Center Nurse 2 #1 R Lat Ankle -Time 09:21 -Correct Patient Yes -Correct Side, Site, Position Yes -Correct Procedure Yes -Procedure Performed Yes -Type of Procedure Debridement -Clinical Debridement Subcutaneous -Tissue Removed Subcutaneous -Post Debridement (cm) - Length 2.0 -Post Debridement (cm) - Width 1.2 -Post Debridement (cm) - Depth 0.2 -Total Square (Post) (cm) 2.40 -Area of Debridement (cm) - Length 2.0 -Area of Debridement (cm) - Width 1.2 -Total Square (Area) (cm) 2.40 -Tunneling No -Undermining/Tunneling No -Circular Undermining No -Wound/Ulcer Outcome Not Healed -Ulcer Cleansing Rinsed/ Irrigated with Saline -Foul Odor after Cleansing No -Bioengineered Tissue No -Bleeding Controlled with Pressure -Treatment Response Procedure Tolerated Well -Offloading No -Debridement - Subq, 1st 20sq cm Yes Pain Scale: 0-10 Numeric Is Patient Pain Free? Yes - Nurse 3 - General Ulcer D/C NN Start: 02/14/23 13:12 Freq: Status: Active Protocol: Activity Type Activity Date Activity User E-sign Co-sign Detail Recorded Client Recorded Date Recorded By Document 02/14/23 13:12 [facility] [id number] 02/14/23 13:13 [facility] 02/14/23 13:12 Vital Signs Temperature (97.8 F-99.1 F) 97 F L Temperature Source Temporal Pulse Rate (60-100) 64 Pulse Location Monitor Respiratory Rate (12-18) 16 Respiratory rate source Observation Oxygen Delivery Method Room Air Blood Pressure (90/60-120/80) 160/49 H Blood Pressure Mean (mm Hg) 86 Source Monitor Position Sitting Blood Pressure Location Right Arm Pain Scale: 0-10 Numeric Is Patient Pain Free? Yes Wound Care Center Nurse 3 #1 R Lat Ankle -Primary Dressing Applied Aquacel Extra -Other Dressing REPLACED OUTER DRSG OVER EPIFIX PER ORDER -Primary Dressing Covered/Secured with Dry Gauze -Aquacel Extra 1 Right -Multi-Layered Wrap Application Multi-Layer Comp - Right ($ ) Treatment Response Procedure Tolerated Well WC - Visit Discharge Discharge Condition Stable Ambulatory Status Wheelchair Facility Type Care Home Care Facility Assessment/Plan Assessment/Plan (1) 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: CODE(S): L97.312 - Non-pressure chronic ulcer of right ankle with fat layer exposed (2) Insulin dependent diabetes mellitus: (3) Tobacco abuse: CODE(S): Z72.0 - Tobacco use PLAN: Plan Debridement done as documented above, procedure was well-tolerated. Wound bed appears healthy. Less maceration/moisture. Aquacel extra daily, cover with Adaptic. Double layer Tubigrip for edema management. Optimal protein intake. Co ntinue other chronic wound care management. Her questions were answered and she was advised to call with any further questions or concerns. Follow up in 2 weeks. This note was generated with [employer] dictation software. It may contain incorrect words, spelling, and punctuation that were not noted in checking the note before signing.
[2023-03-07 09:39] VITALS: BP 113/53; PULSE 60; RESP 16; TEMP 35.7
--- NOTE | 2023-03-07 11:08 | PCM.WC.PN ---
History of Present Illness Date of Service: 03/07/23 Chief Complaint: Non healing right ankle ulcer History of Wound: Ms. Lam is a 62-year-old who was referred to this facility due to nonhealing right lateral ankle ulcer. Noted a year ago, started out as a bullae and subsequently opened up. She states that over the years, she has had alginate and collagen dressings done at her facility without any significant improvement. History of diabetes mellitus, she is not sure of her most recent A1c but states that it has ranged from 8-13. Also history of tobacco use, smokes daily. There is significant pain around the ulcer but she denies otherwise significant leg pain. Does not wear compression. Sleep sedentary but sleeps in the bed. She feels well otherwise, no chills, fever, nausea, vomiting or change in bowel habit reported. Progress of Wound: Largely stable. No new concerns reported at this time. Objective Data Objective Data Vital Signs: Vital Signs Temp Pulse Resp BP O2 Del Method 96.3 F L 60 16 113/53 L Room Air 03/07/23 09:39 03/07/23 09:39 03/07/23 09:39 03/07/23 09:39 03/07/23 09:39 Oxygen Delivery Method Room Air Charges/Coding Procedures Integumentary 111xxx-113xx: 51716 Carla subq tissue 20 sq cm/< Physical Exam Const alert, oriented x3 and no apparent distress General Appearance: cooperative, comfortable and well kempt HEENT normocephalic and head/scalp atraumatic Eyes EOMs intact bilaterally General Eye: normal appearance of both eyes Neck full ROM and supple General: normal visual inspection Resp normal respiratory effort Effort and Inspection: able to speak in complete sentences Extremity General Extremity: edema Skin Wounds: wounds noted Neuro oriented x3, CN's II-XII intact bilaterally and moves all extremities Psych mental status grossly normal, thought process normal, cooperative and affect normal Debridement Note Debridement Note Wound debrided: Right lateral foot/ankle Type of Debridement: Excisional debridement Anesthesia Used: 5% Lidocaine Gel Depth: Down to and including healthy tissue and in the subcutaneous layer Percentage of wound debrided: 100 Instrument Used: 5mm curette Tissue Removed: Slough and devitalized tissue Severity: Fat Layer Exposed Amount of bleeding with debridement: Mild Bleeding Controlled with: Pressure Patient tolerated procedure: Patient tolerated procedure well Post-Debridement Measurements and Additional Note: Post-Debridement Measurements/Treatment RUY - Nurse 1 - General Ulcer Assessment Start: 02/14/23 13:12 Freq: Status: Active Protocol: CLOVIS Activity Type Activity Date Activity User E-sign Co-sign Detail Recorded Client Recorded Date Recorded By Document 02/14/23 13:12 [facility] [id number] 02/14/23 13:13 BM Document 02/21/23 08:58 [facility] [id number] 02/21/23 09:09 BM Document 03/07/23 09:39 [facility] [id number] 03/07/23 09:50 BMF 02/14/23 02/21/23 03/07/23 13:12 08:58 09:39 - Today's Visit Information Type of service Nurse-only Follow-up Visit Follow-up Visit Visit (Physician/PRINT FINISHER (Physician/PRINT FINISHER ) ) Arrival Mode Wheelchair Wheelchair Wheelchair Transfer Assistance None None None Patient Identification Verified (Name & Yes Yes Yes ) Patient Requires Transmission-Based No No No Precautions Vital Signs Temperature (97.8 F-99.1 F) 97 F L 96.1 F L 96.3 F L Temperature Source Temporal Temporal Temporal Pulse Rate (60-100) 64 68 60 Pulse Location Monitor Monitor Monitor Respiratory Rate (12-18) 16 16 16 Respiratory rate source Observation Observation Observation Oxygen Delivery Method Room Air Room Air Room Air Blood Pressure (90/60-120/80) 160/49 H 112/59 L 113/53 L Blood Pressure Mean (mm Hg) 86 76 73 Source Monitor Monitor Monitor Position Sitting Sitting Sitting Blood Pressure Location Right Arm Right Arm Right Arm History Since Last Visit- (Skip if this is Patient's initial visit) Have you changed medications since your No No No last visit? Any new allergies or adverse reactions No No No Had a fall/change in ADL's that may No No No increase risk of falls Signs or symptoms of abuse and/or No No No neglect since last visit Have you been in the hospital since your No No No last visit? Has dressing in place as prescribed Yes Yes Yes Has compression in place as prescribed Yes Yes Yes Has offloadiing in place as prescribed N/A N/A N/A Experienced any changes in pain level or No No No management Left Footwear Slipper Regular Shoe Slipper Right Footwear Slipper Regular Shoe Slipper Pain Scale: 0-10 Numeric Is Patient Pain Free? Yes Yes Yes WC - Nurse 1 - General Ulcer Measurement Start: 02/14/23 13:12 Freq: Status: Active Protocol: Activity Type Activity Date Activity User E-sign Co-sign Detail Recorded Client Recorded Date Recorded By Document 02/14/23 13:12 BM [id number] 02/14/23 13:13 BMF Document 02/21/23 08:58 BMF [id number] 02/21/23 09:09 BMF Document 03/07/23 09:39 BM [id number] 03/07/23 09:50 BMF 02/14/23 02/21/23 03/07/23 13:12 08:58 09:39 Wound Center Nurse 1 #1 R Lat Ankle -Combined with other wound No No -Current Size (cm) - Length 0.1 1.9 -Current Size (cm) - Width 0.1 1.7 -Current Size (cm) - Depth 0.1 0.2 -Total Square Cm 0.01 3.23 -Date of Last Picture (Recall this 02/21/23 03/07/23 field) -Photo Taken Yes Yes -Epithelialization None Present None Present -Tunneling No No -Undermining/Tunneling No No -Circular Undermining No No -Exudate Amt Small Medium -Exudate Type Serosanguineous Serosanguineous -Wound Margin Distinct, Distinct, Outline Outline Attached Attached -Granulation Amt None Present (0 Medium (34-66%) %) -Granulation Quality Red -Slough/Fibrin Yes Yes -Necrosis Amt Large (67-100%) Medium (34-66%) -Necrotic Tissue Type Eschar Adherent Slough -Texture (Lori-wound Skin Appearance) Assessed, Assessed, Scarring Scarring -Moisture (Lori-wound Skin Appearance) Assessed,Dry/ Assessed,Dry/ Scaly Scaly -Color (Lori-wound Skin Appearance) Assessed Assessed -Temperature (Lori-wound Skin No Abnormality No Abnormality Appearance) (Pt Warm) (Pt Warm) -Tenderness on Palpation (Lori-wound No No Skin Appearance) -Ulcer Cleansing Soap and Water Rinsed/ Irrigated with Saline -Foul Odor after Cleansing No No -Anesthetic Used 5% Lidocaine 5% Lidocaine Gel Gel -Wound Comment(s) EPIFIX INTACT Lower Limb Edema Present Yes Right Calf (cm) 34.7 35.6 Right Ankle (cm) 22 23.1 - Nurse 2 - General Ulcer CM Notes Start: 02/14/23 13:12 Freq: Status: Active Protocol: Activity Type Activity Date Activity User E-sign Co-sign Detail Recorded Client Recorded Date Recorded By Document 02/21/23 09:20 MW [id number] 02/21/23 09:23 MW Document 03/07/23 10:11 MW Desktop 03/07/23 10:16 MW 02/21/23 03/07/23 09:20 10:11 Wound Center Nurse 2 #1 R Lat Ankle -Time 09:21 10:12 -Correct Patient Yes Yes -Correct Side, Site, Position Yes Yes -Correct Procedure Yes Yes -Procedure Performed Yes Yes -Type of Procedure Debridement Debridement -Clinical Debridement Subcutaneous Subcutaneous -Tissue Removed Subcutaneous Subcutaneous -Post Debridement (cm) - Length 2.0 2.0 -Post Debridement (cm) - Width 1.2 1.3 -Post Debridement (cm) - Depth 0.2 0.2 -Total Square (Post) (cm) 2.40 2.60 -Area of Debridement (cm) - Length 2.0 2.0 -Area of Debridement (cm) - Width 1.2 1.3 -Total Square (Area) (cm) 2.40 2.60 -Tunneling No No -Undermining/Tunneling No No -Circular Undermining No No -Wound/Ulcer Outcome Not Healed Not Healed -Ulcer Cleansing Rinsed/ Rinsed/ Irrigated with Irrigated with Saline Saline -Foul Odor after Cleansing No No -Bioengineered Tissue No No -Bleeding Controlled with Pressure Pressure -Treatment Response Procedure Procedure Tolerated Well Tolerated Well -Offloading No No -Debridement - Subq, 1st 20sq cm Yes Yes Pain Scale: 0-10 Numeric Is Patient Pain Free? Yes Yes - Nurse 3 - General Ulcer D/C NN Start: 02/14/23 13:12 Freq: Status: Active Protocol: Activity Type Activity Date Activity User E-sign Co-sign Detail Recorded Client Recorded Date Recorded By Document 02/14/23 13:12 [facility] [id number] 02/14/23 13:13 BMF Document 02/21/23 09:24 MW [id number] 02/21/23 09:25 MW Document 03/07/23 10:37 RB [id number] 03/07/23 10:38 RB 02/14/23 02/21/23 03/07/23 13:12 09:24 10:37 Vital Signs Temperature (97.8 F-99.1 F) 97 F L Temperature Source Temporal Pulse Rate (60-100) 64 Pulse Location Monitor Respiratory Rate (12-18) 16 Respiratory rate source Observation Oxygen Delivery Method Room Air Blood Pressure (90/60-120/80) 160/49 H Blood Pressure Mean (mm Hg) 86 Source Monitor Position Sitting Blood Pressure Location Right Arm Pain Scale: 0-10 Numeric Is Patient Pain Free? Yes Yes Yes Wound Care Center Nurse 3 #1 R Lat Ankle -Ulcer Cleansing Rinsed/ Rinsed/ Irrigated with Irrigated with Saline Saline -Foul Odor after Cleansing No -Negative Pressure Wound Therapy N/A -Primary Dressing Applied Aquacel Extra Aquacel Extra, Aquacel Extra, NonAdherent Mepilex Border Contact Layer -Other Dressing REPLACED OUTER bactroban DRSG OVER EPIFIX PER ORDER -Primary Dressing Covered/Secured with Dry Gauze Dry Gauze, Secured with Tape -Aquacel Extra 1 1 1 -Mepilex Border 1 Right -Lotion applied to leg before No compression wrap -Multi-Layered Wrap Application Multi-Layer Comp - Right ($ ) -Tubular Bandage Double Layer Double Layer -Size of Tubigrip Used Size D Size D -Size D ($) 2 2 Treatment Response Procedure Procedure Procedure Tolerated Well Tolerated Well Tolerated Well WC - Visit Discharge Discharge Condition Stable Stable Stable Ambulatory Status Wheelchair Wheelchair [facility] [facility] by self Medication Reconcilliation completed & No No provided to patient/care provider Clinical Summary of Care Provided Yes Yes Facility Type [facility] Facility Assessment/Plan Assessment/Plan (1) 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: CODE(S): L97.312 - Non-pressure chronic ulcer of right ankle with fat layer exposed (2) Insulin dependent diabetes mellitus: (3) Tobacco abuse: CODE(S): Z72.0 - Tobacco use PLAN: Plan Debridement done as documented above, procedure was well-tolerated. Stable, no significant changes. Continue Aquacel extra, will add on mupirocin ointment. Change daily. Double layer Tubigrip for edema management. Optimal protein intake. Continue other chronic wound care management. Her questions were answered and she was advised to call with any further questions or concerns. Follow up in 1 week. This note was generated with [employer] dictation software. It may contain incorrect words, spelling, and punctuation that were not noted in checking the note before signing.
[2023-03-14 09:18] VITALS: BP 122/66; PULSE 73; RESP 18; TEMP 36
--- NOTE | 2023-03-14 10:08 | PCM.WC.PN ---
History of Present Illness Date of Service: 03/14/23 Chief Complaint: Non healing right ankle ulcer History of Wound: Ms. Lam is a 62-year-old who was referred to this facility due to nonhealing right lateral ankle ulcer. Noted a year ago, started out as a bullae and subsequently opened up. She states that over the years, she has had alginate and collagen dressings done at her facility without any significant improvement. History of diabetes mellitus, she is not sure of her most recent A1c but states that it has ranged from 8-13. Also history of tobacco use, smokes daily. There is significant pain around the ulcer but she denies otherwise significant leg pain. Does not wear compression. Sleep sedentary but sleeps in the bed. She feels well otherwise, no chills, fever, nausea, vomiting or change in bowel habit reported. Progress of Wound: No new concerns, some improvement noted this week. Objective Data Objective Data Vital Signs: Vital Signs Temp Pulse Resp BP O2 Del Method 96.8 F L 73 18 122/66 H Room Air 03/14/23 09:18 03/14/23 09:18 03/14/23 09:18 03/14/23 09:18 03/07/23 09:39 Oxygen Delivery Method Room Air Charges/Coding Procedures Integumentary 111xxx-113xx: 65802 Carla subq tissue 20 sq cm/< Physical Exam Const alert, oriented x3 and no apparent distress General Appearance: cooperative, comfortable and well kempt HEENT normocephalic and head/scalp atraumatic Eyes EOMs intact bilaterally General Eye: normal appearance of both eyes Neck full ROM and supple General: normal visual inspection Resp normal respiratory effort Effort and Inspection: able to speak in complete sentences Extremity General Extremity: edema Skin Wounds: wounds noted Neuro oriented x3, CN's II-XII intact bilaterally and moves all extremities Psych mental status grossly normal, thought process normal, cooperative and affect normal Debridement Note Debridement Note Wound debrided: Right lateral foot/ankle Type of Debridement: Excisional debridement Anesthesia Used: 5% Lidocaine Gel Depth: Down to and including healthy tissue and in the subcutaneous layer Percentage of wound debrided: 100 Instrument Used: 5mm curette Tissue Removed: Slough and devitalized tissue Severity: Fat Layer Exposed Amount of bleeding with debridement: Mild Bleeding Controlled with: Pressure Patient tolerated procedure: Patient tolerated procedure well Post-Debridement Measurements and Additional Note: Post-Debridement Measurements/Treatment RUY - Nurse 1 - General Ulcer Assessment Start: 02/14/23 13:12 Freq: Status: Active Protocol: CLOVIS Activity Type Activity Date Activity User E-sign Co-sign Detail Recorded Client Recorded Date Recorded By Document 02/14/23 13:12 BM [id number] 02/14/23 13:13 BM Document 02/21/23 08:58 [facility] [id number] 02/21/23 09:09 BM Document 03/07/23 09:39 BM [id number] 03/07/23 09:50 BM Document 03/14/23 09:18 Desktop 03/14/23 09:20 JF 02/14/23 02/21/23 03/07/23 13:12 08:58 09:39 - Today's Visit Information Type of service Nurse-only Follow-up Visit Follow-up Visit Visit (Physician/CHILD CARE ATTENDANT (Physician/CHILD CARE ATTENDANT ) ) Arrival Mode Wheelchair Wheelchair Wheelchair Transfer Assistance None None None Patient Identification Verified (Name & Yes Yes Yes ) Patient Requires Transmission-Based No No No Precautions Vital Signs Temperature (97.8 F-99.1 F) 97 F L 96.1 F L 96.3 F L Temperature Source Temporal Temporal Temporal Pulse Rate (60-100) 64 68 60 Pulse Location Monitor Monitor Monitor Respiratory Rate (12-18) 16 16 16 Respiratory rate source Observation Observation Observation Oxygen Delivery Method Room Air Room Air Room Air Blood Pressure (90/60-120/80) 160/49 H 112/59 L 113/53 L Blood Pressure Mean (mm Hg) 86 76 73 Source Monitor Monitor Monitor Position Sitting Sitting Sitting Blood Pressure Location Right Arm Right Arm Right Arm History Since Last Visit- (Skip if this is Patient's initial visit) Have you changed medications since your No No No last visit? Any new allergies or adverse reactions No No No Had a fall/change in ADL's that may No No No increase risk of falls Signs or symptoms of abuse and/or No No No neglect since last visit Have you been in the hospital since your No No No last visit? Has dressing in place as prescribed Yes Yes Yes Has compression in place as prescribed Yes Yes Yes Has offloadiing in place as prescribed N/A N/A N/A Experienced any changes in pain level or No No No management Left Footwear Slipper Regular Shoe Slipper Right Footwear Slipper Regular Shoe Slipper Pain Scale: 0-10 Numeric Is Patient Pain Free? Yes Yes Yes 03/14/23 09:18 - Today's Visit Information Type of service Follow-up Visit (Physician/CHILD CARE ATTENDANT ) Arrival Mode Wheelchair Transfer Assistance Manual Patient Identification Verified (Name & Yes ) Patient Requires Transmission-Based No Precautions Vital Signs Temperature (97.8 F-99.1 F) 96.8 F L Temperature Source Temporal Pulse Rate (60-100) 73 Pulse Location Monitor Respiratory Rate (12-18) 18 Respiratory rate source Observation Oxygen Delivery Method Blood Pressure (90/60-120/80) 122/66 H Blood Pressure Mean (mm Hg) 84 Source Monitor Position Sitting Blood Pressure Location Right Arm History Since Last Visit- (Skip if this is Patient's initial visit) Have you changed medications since your No last visit? Any new allergies or adverse reactions No Had a fall/change in ADL's that may No increase risk of falls Signs or symptoms of abuse and/or No neglect since last visit Have you been in the hospital since your No last visit? Has dressing in place as prescribed Yes Has compression in place as prescribed Yes Has offloadiing in place as prescribed No Experienced any changes in pain level or No management Left Footwear Slipper Right Footwear Slipper Pain Scale: 0-10 Numeric Is Patient Pain Free? Yes - Nurse 1 - General Ulcer Measurement Start: 02/14/23 13:12 Freq: Status: Active Protocol: Activity Type Activity Date Activity User E-sign Co-sign Detail Recorded Client Recorded Date Recorded By Document 02/14/23 13:12 [facility] [id number] 02/14/23 13:13 [facility] Document 02/21/23 08:58 [facility] [id number] 02/21/23 09:09 BM Document 03/07/23 09:39 [facility] [id number] 03/07/23 09:50 BM Document 03/14/23 09:18 Desktop 03/14/23 09:20 02/14/23 02/21/23 03/07/23 13:12 08:58 09:39 Wound Center Nurse 1 #1 R Lat Ankle -Combined with other wound No No -Current Size (cm) - Length 0.1 1.9 -Current Size (cm) - Width 0.1 1.7 -Current Size (cm) - Depth 0.1 0.2 -Total Square Cm 0.01 3.23 -Date of Last Picture (Recall this 02/21/23 03/07/23 field) -Photo Taken Yes Yes -Epithelialization None Present None Present -Tunneling No No -Undermining/Tunneling No No -Circular Undermining No No -Exudate Amt Small Medium -Exudate Type Serosanguineous Serosanguineous -Wound Margin Distinct, Distinct, Outline Outline Attached Attached -Granulation Amt None Present (0 Medium (34-66%) %) -Granulation Quality Red -Slough/Fibrin Yes Yes -Necrosis Amt Large (67-100%) Medium (34-66%) -Necrotic Tissue Type Eschar Adherent Slough -Structure Exposed -Texture (Lori-wound Skin Appearance) Assessed, Assessed, Scarring Scarring -Moisture (Lori-wound Skin Appearance) Assessed,Dry/ Assessed,Dry/ Scaly Scaly -Color (Lori-wound Skin Appearance) Assessed Assessed -Temperature (Lori-wound Skin No Abnormality No Abnormality Appearance) (Pt Warm) (Pt Warm) -Tenderness on Palpation (Lori-wound No No Skin Appearance) -Ulcer Cleansing Soap and Water Rinsed/ Irrigated with Saline -Foul Odor after Cleansing No No -Anesthetic Used 5% Lidocaine 5% Lidocaine Gel Gel -Wound Comment(s) EPIFIX INTACT Lower Limb Edema Present Yes Right Calf (cm) 34.7 35.6 Right Ankle (cm) 22 23.1 03/14/23 09:18 Wound Center Nurse 1 #1 R Lat Ankle -Combined with other wound No -Current Size (cm) - Length 1.8 -Current Size (cm) - Width 1.1 -Current Size (cm) - Depth 0.2 -Total Square Cm 1.98 -Date of Last Picture (Recall this field) -Photo Taken No -Epithelialization None Present -Tunneling No -Undermining/Tunneling No -Circular Undermining No -Exudate Amt Small -Exudate Type Serosanguineous -Wound Margin Flat & Intact -Granulation Amt None Present (0 %) -Granulation Quality -Slough/Fibrin Yes -Necrosis Amt Large (67-100%) -Necrotic Tissue Type Adherent Slough -Structure Exposed N/A -Texture (Lori-wound Skin Appearance) Assessed, Localized Edema -Moisture (Lori-wound Skin Appearance) Assessed,Dry/ Scaly -Color (Lori-wound Skin Appearance) Assessed, Hemosiderin Staining -Temperature (Lori-wound Skin No Abnormality Appearance) (Pt Warm) -Tenderness on Palpation (Lori-wound No Skin Appearance) -Ulcer Cleansing Rinsed/ Irrigated with Saline -Foul Odor after Cleansing No -Anesthetic Used 5% Lidocaine Gel -Wound Comment(s) Lower Limb Edema Present Yes Right Calf (cm) 35.5 Right Ankle (cm) 22.2 WC - Nurse 2 - General Ulcer CM Notes Start: 02/14/23 13:12 Freq: Status: Active Protocol: Activity Type Activity Date Activity User E-sign Co-sign Detail Recorded Client Recorded Date Recorded By Document 02/21/23 09:20 MW [id number] 02/21/23 09:23 MW Document 03/07/23 10:11 MW Desktop 03/07/23 10:16 MW Document 03/14/23 09:56 [id number] 03/14/23 09:57 02/21/23 03/07/23 03/14/23 09:20 10:11 09:56 Wound Center Nurse 2 #1 R Lat Ankle -Time 09:21 10:12 09:56 -Correct Patient Yes Yes Yes -Correct Side, Site, Position Yes Yes Yes -Correct Procedure Yes Yes Yes -Procedure Performed Yes Yes Yes -Type of Procedure Debridement Debridement Debridement -Clinical Debridement Subcutaneous Subcutaneous Subcutaneous -Tissue Removed Subcutaneous Subcutaneous Subcutaneous -Post Debridement (cm) - Length 2.0 2.0 1.3 -Post Debridement (cm) - Width 1.2 1.3 1.1 -Post Debridement (cm) - Depth 0.2 0.2 0.2 -Total Square (Post) (cm) 2.40 2.60 1.43 -Area of Debridement (cm) - Length 2.0 2.0 1.3 -Area of Debridement (cm) - Width 1.2 1.3 1.1 -Total Square (Area) (cm) 2.40 2.60 1.43 -Tunneling No No No -Undermining/Tunneling No No No -Circular Undermining No No No -Wound/Ulcer Outcome Not Healed Not Healed Not Healed -Ulcer Cleansing Rinsed/ Rinsed/ Rinsed/ Irrigated with Irrigated with Irrigated with Saline Saline Saline -Foul Odor after Cleansing No No No -Bioengineered Tissue No No No -Bleeding Controlled with Pressure Pressure Pressure -Treatment Response Procedure Procedure Procedure Tolerated Well Tolerated Well Tolerated Well -Offloading No No No -Debridement - Subq, 1st 20sq cm Yes Yes Yes Pain Scale: 0-10 Numeric Is Patient Pain Free? Yes Yes Yes WC - Nurse 3 - General Ulcer D/C NN Start: 02/14/23 13:12 Freq: Status: Active Protocol: Activity Type Activity Date Activity User E-sign Co-sign Detail Recorded Client Recorded Date Recorded By Document 02/14/23 13:12 [facility] [id number] 02/14/23 13:13 [facility] Document 02/21/23 09:24 MW [id number] 02/21/23 09:25 MW Document 03/07/23 10:37 RB [id number] 03/07/23 10:38 RB Document 03/14/23 10:03 [facility] [id number] 03/14/23 10:04 BMF 02/14/23 02/21/23 03/07/23 13:12 09:24 10:37 Vital Signs Temperature (97.8 F-99.1 F) 97 F L Temperature Source Temporal Pulse Rate (60-100) 64 Pulse Location Monitor Respiratory Rate (12-18) 16 Respiratory rate source Observation Oxygen Delivery Method Room Air Blood Pressure (90/60-120/80) 160/49 H Blood Pressure Mean (mm Hg) 86 Source Monitor Position Sitting Blood Pressure Location Right Arm Pain Scale: 0-10 Numeric Is Patient Pain Free? Yes Yes Yes Wound Care Center Nurse 3 #1 R Lat Ankle -Ulcer Cleansing Rinsed/ Rinsed/ Irrigated with Irrigated with Saline Saline -Foul Odor after Cleansing No -Negative Pressure Wound Therapy N/A -Primary Dressing Applied Aquacel Extra Aquacel Extra, Aquacel Extra, NonAdherent Mepilex Border Contact Layer -Other Dressing REPLACED OUTER bactroban DRSG OVER EPIFIX PER ORDER -Primary Dressing Covered/Secured with Dry Gauze Dry Gauze, Secured with Tape -Aquacel Extra 1 1 1 -Mepilex Border 1 Right -Lotion applied to leg before No compression wrap -Multi-Layered Wrap Application Multi-Layer Comp - Right ($ ) -Tubular Bandage Double Layer Double Layer -Size of Tubigrip Used Size D Size D -Size D ($) 2 2 Treatment Response Procedure Procedure Procedure Tolerated Well Tolerated Well Tolerated Well WC - Visit Discharge Discharge Condition Stable Stable Stable Ambulatory Status Wheelchair Wheelchair Wheelchair Transportation [facility] Auto Accompanied by self Medication Reconcilliation completed & No No provided to patient/care provider Clinical Summary of Care Provided Yes Yes Facility Type [facility] 03/14/23 10:03 Vital Signs Temperature (97.8 F-99.1 F) Temperature Source Pulse Rate (60-100) Pulse Location Respiratory Rate (12-18) Respiratory rate source Oxygen Delivery Method Blood Pressure (90/60-120/80) Blood Pressure Mean (mm Hg) Source Position Blood Pressure Location Pain Scale: 0-10 Numeric Is Patient Pain Free? Yes Wound Care Center Nurse 3 #1 R Lat Ankle -Ulcer Cleansing Rinsed/ Irrigated with Saline -Foul Odor after Cleansing No -Negative Pressure Wound Therapy -Primary Dressing Applied Aquacel Extra, Mepilex Border -Other Dressing -Primary Dressing Covered/Secured with -Aquacel Extra 1 -Mepilex Border 1 Right -Lotion applied to leg before compression wrap -Multi-Layered Wrap Application -Tubular Bandage Double Layer -Size of Tubigrip Used Size D -Size D ($) 2 Treatment Response Procedure Tolerated Well WC - Visit Discharge Discharge Condition Stable Ambulatory Status Wheelchair Transportation [facility] TRANSPORT Accompanied by Medication Reconcilliation completed & provided to patient/care provider Clinical Summary of Care Provided Facility Type [facility] Assessment/Plan Assessment/Plan (1) 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: CODE(S): L97.312 - Non-pressure chronic ulcer of right ankle with fat layer exposed (2) Insulin dependent diabetes mellitus: (3) Tobacco abuse: CODE(S): Z72.0 - Tobacco use PLAN: Plan Some improvement noted. Continue Aquacel extra and Mupirocin. Change daily. Double layer Tubigrip for edema management. Optimal protein intake. Continue other chronic wound care management. Offloading also discussed, instructions sent to facility PT to help with this. Her questions were answered and she was advised to call with any further questions or concerns. Follow up in 1 week. This note was generated with MiT[employer] software. It may contain incorrect words, spelling, and punctuation that were not noted in checking the note before signing.
== END 2023-03-14 23:59 | disposition home or self-care (01) ==
LOC: WC 09:15
PROVIDERS: PCP Internal Medicine; Referring Provider Internal Medicine; Visit Provider Internal Medicine
DX: L97.312 Non-pressure chronic ulcer of right ankle with fat layer exposed (principal); Z87.891 Personal history of nicotine dependence
CPT/HCPCS: 11042; 29581

== ENCOUNTER 2023-04-11 10:00 | Outpatient (RCR) | payer MEDICARE, MEDICAID, SELFPAY ==
[2023-03-15 00:10] VITALS: BP 122/66; PULSE 73; RESP 18; TEMP 36
[2023-03-21 09:10] VITALS: BP 149/53; PULSE 70; RESP 16; TEMP 35.8
--- NOTE | 2023-03-21 09:49 | PN.PCM_ITS ---
History of Present Illness Date of Service: 03/21/23 Chief Complaint: Non healing right ankle ulcer History of Wound: Ms. Lam is a 62-year-old who was referred to this facility due to nonhealing right lateral ankle ulcer. Noted a year ago, started out as a bullae and subsequently opened up. She states that over the years, she has had alginate and collagen dressings done at her facility without any significant improvement. History of diabetes mellitus, she is not sure of her most recent A1c but states that it has ranged from 8-13. Also history of tobacco use, smokes daily. There is significant pain around the ulcer but she denies otherwise significant leg pain. Does not wear compression. Sleep sedentary but sleeps in the bed. She feels well otherwise, no chills, fever, nausea, vomiting or change in bowel habit reported. Progress of Wound: No new concerns at this time. Stable. Objective Data Objective Data Vital Signs: Vital Signs Temp Pulse Resp BP O2 Del Method 96.4 F L 70 16 149/53 H Room Air 03/21/23 09:10 03/21/23 09:10 03/21/23 09:10 03/21/23 09:10 03/21/23 09:10 Oxygen Delivery Method Room Air Charges/Coding Procedures Integumentary 111xxx-113xx: 14730 Carla subq tissue 20 sq cm/< Physical Exam Const alert, oriented x3 and no apparent distress General Appearance: cooperative, comfortable and well kempt HEENT normocephalic and head/scalp atraumatic Eyes EOMs intact bilaterally General Eye: normal appearance of both eyes Neck full ROM and supple General: normal visual inspection Resp normal respiratory effort Effort and Inspection: able to speak in complete sentences Extremity General Extremity: edema Skin Wounds: wounds noted Neuro oriented x3, CN's II-XII intact bilaterally and moves all extremities Psych mental status grossly normal, thought process normal, cooperative and affect normal Debridement Note Debridement Note Wound debrided: Right lateral foot/ankle Type of Debridement: Excisional debridement Anesthesia Used: 5% Lidocaine Gel Depth: Down to and including healthy tissue and in the subcutaneous layer Percentage of wound debrided: 100 Instrument Used: 5mm curette Tissue Removed: Slough and devitalized tissue Severity: Fat Layer Exposed Amount of bleeding with debridement: Mild Bleeding Controlled with: Pressure Patient tolerated procedure: Patient tolerated procedure well Post-Debridement Measurements and Additional Note: Post-Debridement Measurements/Treatment - Nurse 1 - General Ulcer Assessment Start: 03/21/23 09:10 Freq: Status: Active Protocol: CLOVIS Activity Type Activity Date Activity User E-sign Co-sign Detail Recorded Client Recorded Date Recorded By Document 03/21/23 09:10 [facility] [id number] 03/21/23 09:19 [facility] 03/21/23 09:10 WC - Today's Visit Information Type of service Follow-up Visit (Physician/SCHOOL CHILDCARE ATTENDANT ) Arrival Mode Wheelchair Transfer Assistance None Patient Identification Verified (Name & Yes ) Patient Requires Transmission-Based No Precautions Finger Stick Blood Sugar(mg/dl) (if 113 indicated): Blood Sugar Stated by Patient Vital Signs Temperature (97.8 F-99.1 F) 96.4 F L Temperature Source Temporal Pulse Rate (60-100) 70 Pulse Location Monitor Respiratory Rate (12-18) 16 Respiratory rate source Observation Oxygen Delivery Method Room Air Blood Pressure (90/60-120/80) 149/53 H Blood Pressure Mean (mm Hg) 85 Source Monitor Position Sitting Blood Pressure Location Right Arm History Since Last Visit- (Skip if this is Patient's initial visit) Have you changed medications since your No last visit? Any new allergies or adverse reactions No Had a fall/change in ADL's that may No increase risk of falls Signs or symptoms of abuse and/or No neglect since last visit Have you been in the hospital since your No last visit? Has dressing in place as prescribed Yes Has compression in place as prescribed Yes Has offloadiing in place as prescribed N/A Experienced any changes in pain level or No management Left Footwear Slipper Right Footwear Slipper Pain Scale: 0-10 Numeric Is Patient Pain Free? Yes - Nurse 1 - General Ulcer Measurement Start: 03/21/23 09:10 Freq: Status: Active Protocol: Activity Type Activity Date Activity User E-sign Co-sign Detail Recorded Client Recorded Date Recorded By Document 03/21/23 09:10 [facility] [id number] 03/21/23 09:19 [facility] 03/21/23 09:10 Wound Center Nurse 1 #1 R Lat Ankle -Combined with other wound No -Current Size (cm) - Length 1.6 -Current Size (cm) - Width 1.1 -Current Size (cm) - Depth 0.4 -Total Square Cm 1.76 -Date of Last Picture (Recall this 03/21/23 field) -Photo Taken Yes -Epithelialization Small 1-33% -Tunneling No -Undermining/Tunneling No -Circular Undermining No -Exudate Amt Medium -Exudate Type Serosanguineous -Wound Margin Distinct, Outline Attached -Granulation Amt Medium (34-66%) -Granulation Quality [place] -Slough/Fibrin Yes -Necrosis Amt Medium (34-66%) -Necrotic Tissue Type Adherent Slough -Texture (Lori-wound Skin Appearance) Assessed, Localized Edema ,Scarring -Moisture (Lori-wound Skin Appearance) Assessed -Color (Lori-wound Skin Appearance) Assessed -Temperature (Lori-wound Skin No Abnormality Appearance) (Pt Warm) -Tenderness on Palpation (Lori-wound No Skin Appearance) -Ulcer Cleansing Rinsed/ Irrigated with Saline -Foul Odor after Cleansing No -Anesthetic Used 5% Lidocaine Gel WC - Nurse 2 - General Ulcer CM Notes Start: 03/21/23 09:10 Freq: Status: Active Protocol: Activity Type Activity Date Activity User E-sign Co-sign Detail Recorded Client Recorded Date Recorded By Document 03/21/23 09:32 JANICE [id number] 03/21/23 09:37 JANICE 03/21/23 09:32 Wound Center Nurse 2 -Time 09:34 -Correct Patient Yes -Correct Side, Site, Position Yes -Correct Procedure Yes -Procedure Performed Yes -Type of Procedure Debridement -Clinical Debridement Subcutaneous -Tissue Removed Subcutaneous -Post Debridement (cm) - Length 1.5 -Post Debridement (cm) - Width 1 -Post Debridement (cm) - Depth 0.3 -Total Square (Post) (cm) 1.5 -Area of Debridement (cm) - Length 1.5 -Area of Debridement (cm) - Width 1.0 -Total Square (Area) (cm) 1.50 -Tunneling No -Undermining/Tunneling No -Circular Undermining No -Wound/Ulcer Outcome Not Healed -Ulcer Cleansing Rinsed/ Irrigated with Saline -Foul Odor after Cleansing No -Bioengineered Tissue No -Bleeding Controlled with Pressure -Treatment Response Procedure Tolerated Well -Offloading No -Debridement - Subq, 1st 20sq cm Yes Pain Scale: 0-10 Numeric Is Patient Pain Free? Yes Assessment/Plan Assessment/Plan (1) 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: CODE(S): L97.312 - Non-pressure chronic ulcer of right ankle with fat layer exposed (2) Insulin dependent diabetes mellitus: (3) Tobacco abuse: CODE(S): Z72.0 - Tobacco use PLAN: Plan Debridement done as documented above, procedure was well-tolerated. Stable. Continue Aquacel extra and Mupirocin. Change daily. Double layer Tubigrip for edema management. Optimal protein intake. Continue other chronic wound care management. Feedback from facility was that patient did not use offloading boot when previously initiated, she states that she does not remember this. She was strongly advised to, she voiced understanding. Her questions were answered and she was advised to call with any further questions or concerns. Follow up in 1 week. This note was generated with [employer] dictation software. It may contain incorrect words, spelling, and punctuation that were not noted in checking the note before signing.
[2023-03-28 10:08] VITALS: BP 136/60; PULSE 77; RESP 18; TEMP 35.8
--- NOTE | 2023-03-28 11:53 | PN.PCM_ITS ---
History of Present Illness Date of Service: 03/28/23 Chief Complaint: Non healing right ankle ulcer History of Wound: Ms. Lam is a 62-year-old who was referred to this facility due to nonhealing right lateral ankle ulcer. Noted a year ago, started out as a bullae and subsequently opened up. She states that over the years, she has had alginate and collagen dressings done at her facility without any significant improvement. History of diabetes mellitus, she is not sure of her most recent A1c but states that it has ranged from 8-13. Also history of tobacco use, smokes daily. There is significant pain around the ulcer but she denies otherwise significant leg pain. Does not wear compression. Sleep sedentary but sleeps in the bed. She feels well otherwise, no chills, fever, nausea, vomiting or change in bowel habit reported. Progress of Wound: No new concerns at this time. Yet to get her offloading boot. Objective Data Objective Data Vital Signs: Vital Signs Temp Pulse Resp BP O2 Del Method 96.4 F L 77 18 136/60 H Room Air 03/28/23 10:08 03/28/23 10:08 03/28/23 10:08 03/28/23 10:08 03/21/23 09:10 Oxygen Delivery Method Room Air Charges/Coding Procedures Integumentary 111xxx-113xx: 51296 Carla subq tissue 20 sq cm/< Physical Exam Const alert, oriented x3 and no apparent distress General Appearance: cooperative, comfortable and well kempt HEENT normocephalic and head/scalp atraumatic Eyes EOMs intact bilaterally General Eye: normal appearance of both eyes Neck full ROM and supple General: normal visual inspection Resp normal respiratory effort Effort and Inspection: able to speak in complete sentences Extremity General Extremity: edema Skin Wounds: wounds noted Neuro oriented x3, CN's II-XII intact bilaterally and moves all extremities Psych mental status grossly normal, thought process normal, cooperative and affect normal Debridement Note Debridement Note Wound debrided: Right lateral foot/ankle Type of Debridement: Excisional debridement Anesthesia Used: 5% Lidocaine Gel Depth: Down to and including healthy tissue and in the subcutaneous layer Percentage of wound debrided: 100 Instrument Used: 5mm curette Tissue Removed: Slough and devitalized tissue Severity: Fat Layer Exposed Amount of bleeding with debridement: Mild Bleeding Controlled with: Pressure Patient tolerated procedure: Patient tolerated procedure well Post-Debridement Measurements and Additional Note: Post-Debridement Measurements/Treatment WC - Nurse 1 - General Ulcer Assessment Start: 03/21/23 09:10 Freq: Status: Active Protocol: CLOVIS Activity Type Activity Date Activity User E-sign Co-sign Detail Recorded Client Recorded Date Recorded By Document 03/21/23 09:10 BM [id number] 03/21/23 09:19 BM Document 03/28/23 10:08 RB [id number] 03/28/23 10:16 RB 03/21/23 03/28/23 09:10 10:08 WC - Today's Visit Information Type of service Follow-up Visit Follow-up Visit (Physician/SHADOW GRAPH WEIGHT OPERATOR (Physician/SHADOW GRAPH WEIGHT OPERATOR ) ) Arrival Mode Wheelchair Wheelchair Transfer Assistance None None Patient Identification Verified (Name & Yes Yes ) Patient Requires Transmission-Based No No Precautions Finger Stick Blood Sugar(mg/dl) (if 113 indicated): Blood Sugar Stated by Patient Vital Signs Temperature (97.8 F-99.1 F) 96.4 F L 96.4 F L Temperature Source Temporal Temporal Pulse Rate (60-100) 70 77 Pulse Location Monitor Monitor Respiratory Rate (12-18) 16 18 Respiratory rate source Observation Observation Oxygen Delivery Method Room Air Blood Pressure (90/60-120/80) 149/53 H 136/60 H Blood Pressure Mean (mm Hg) 85 85 Source Monitor Monitor Position Sitting Semi-Fowlers Blood Pressure Location Right Arm Left Arm History Since Last Visit- (Skip if this is Patient's initial visit) Have you changed medications since your No No last visit? Any new allergies or adverse reactions No No Had a fall/change in ADL's that may No No increase risk of falls Signs or symptoms of abuse and/or No No neglect since last visit Have you been in the hospital since your No No last visit? Has dressing in place as prescribed Yes Yes Has compression in place as prescribed Yes Yes Has offloadiing in place as prescribed N/A No Experienced any changes in pain level or No No management Left Footwear Slipper Right Footwear Slipper Pain Scale: 0-10 Numeric Is Patient Pain Free? Yes Yes RUY - Nurse 1 - General Ulcer Measurement Start: 03/21/23 09:10 Freq: Status: Active Protocol: Activity Type Activity Date Activity User E-sign Co-sign Detail Recorded Client Recorded Date Recorded By Document 03/21/23 09:10 [facility] [id number] 03/21/23 09:19 [facility] Document 03/28/23 10:08 RB [id number] 03/28/23 10:16 RB 03/21/23 03/28/23 09:10 10:08 Wound Center Nurse 1 #1 R Lat Ankle -Combined with other wound No No -Current Size (cm) - Length 1.6 1.6 -Current Size (cm) - Width 1.1 1.2 -Current Size (cm) - Depth 0.4 0.3 -Total Square Cm 1.76 1.92 -Date of Last Picture (Recall this 03/21/23 field) -Photo Taken Yes -Epithelialization Small 1-33% -Tunneling No No -Undermining/Tunneling No No -Circular Undermining No No -Exudate Amt Medium Medium -Exudate Type Serosanguineous Serosanguineous -Wound Margin Distinct, Thickened & Outline Rolled Under Attached -Granulation Amt Medium (34-66%) Medium (34-66%) -Granulation Quality Merom Merom -Slough/Fibrin Yes Yes -Necrosis Amt Medium (34-66%) Large (67-100%) -Necrotic Tissue Type Adherent Slough Adherent Slough -Structure Exposed N/A -Texture (Lori-wound Skin Appearance) Assessed, Assessed Localized Edema ,Scarring -Moisture (Lori-wound Skin Appearance) Assessed Assessed -Color (Lori-wound Skin Appearance) Assessed Hemosiderin Staining -Temperature (Lori-wound Skin No Abnormality No Abnormality Appearance) (Pt Warm) (Pt Warm) -Tenderness on Palpation (Lori-wound No No Skin Appearance) -Ulcer Cleansing Rinsed/ Wound Cleanser Irrigated with Saline -Foul Odor after Cleansing No No -Anesthetic Used 5% Lidocaine 5% Lidocaine Gel Gel Lower Limb Edema Present Yes Right Calf (cm) 35.8 Right Ankle (cm) 22.5 WC - Nurse 2 - General Ulcer CM Notes Start: 03/21/23 09:10 Freq: Status: Active Protocol: Activity Type Activity Date Activity User E-sign Co-sign Detail Recorded Client Recorded Date Recorded By Document 03/21/23 09:32 [id number] 03/21/23 09:37 Document 03/28/23 10:25 [id number] 03/28/23 10:28 03/21/23 03/28/23 09:32 10:25 Wound Center Nurse 2 #1 R Lat Ankle -Time 09:34 10:26 -Correct Patient Yes Yes -Correct Side, Site, Position Yes Yes -Correct Procedure Yes Yes -Procedure Performed Yes Yes -Type of Procedure Debridement Debridement -Clinical Debridement Subcutaneous Subcutaneous -Tissue Removed Subcutaneous Subcutaneous -Post Debridement (cm) - Length 1.5 1.5 -Post Debridement (cm) - Width 1 1.1 -Post Debridement (cm) - Depth 0.3 0.2 -Total Square (Post) (cm) 1.5 1.65 -Area of Debridement (cm) - Length 1.5 1.5 -Area of Debridement (cm) - Width 1.0 1.1 -Total Square (Area) (cm) 1.50 1.65 -Tunneling No No -Undermining/Tunneling No No -Circular Undermining No No -Wound/Ulcer Outcome Not Healed Not Healed -Ulcer Cleansing Rinsed/ Rinsed/ Irrigated with Irrigated with Saline Saline -Foul Odor after Cleansing No No -Bioengineered Tissue No No -Bleeding Controlled with Pressure Pressure -Treatment Response Procedure Procedure Tolerated Well Tolerated Well -Offloading No No -Debridement - Subq, 1st 20sq cm Yes Yes Pain Scale: 0-10 Numeric Is Patient Pain Free? Yes Yes - Nurse 3 - General Ulcer D/C NN Start: 03/21/23 09:10 Freq: Status: Active Protocol: Activity Type Activity Date Activity User E-sign Co-sign Detail Recorded Client Recorded Date Recorded By Document 03/21/23 09:48 [facility] [id number] 03/21/23 09:49 BM Document 03/28/23 10:52 RB [id number] 03/28/23 10:53 RB 03/21/23 03/28/23 09:48 10:52 Wound Care Center Nurse 3 #1 R Lat Ankle -Ulcer Cleansing Rinsed/ Rinsed/ Irrigated with Irrigated with Saline Saline -Foul Odor after Cleansing No -Primary Dressing Applied Aquacel Extra, Aquacel Extra, Mepilex Border Mepilex Border -Other Dressing BACTROBAN bactroban -Other Covering PER RB RN -Aquacel Extra 1 1 -Mepilex Border 1 1 Right -Tubular Bandage Double Layer Double Layer -Size of Tubigrip Used Size D Size D -Size D ($) 2 2 Treatment Response Procedure Procedure Tolerated Well Tolerated Well Pain Scale: 0-10 Numeric Is Patient Pain Free? Yes Yes Teaching: Wound Center Dressing Your Wound -Person Taught Patient -Teaching Method Discussion, Demonstration -Response to teaching Verbalize understanding WC - Visit Discharge Discharge Condition Stable Stable Ambulatory Status Wheelchair Wheelchair Transportation ECF Private Auto Medication Reconcilliation completed & No provided to patient/care provider Clinical Summary of Care Provided Yes Facility Type [facility] Care Facility Assessment/Plan Assessment/Plan (1) 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: CODE(S): L97.312 - Non-pressure chronic ulcer of right ankle with fat layer exposed (2) Insulin dependent diabetes mellitus: (3) Tobacco abuse: CODE(S): Z72.0 - Tobacco use PLAN: Plan Debridement done as documented above, procedure was well-tolerated. Stable. Continue Aquacel extra and Mupirocin. Change daily. Double layer Tubigrip for edema management. Optimal protein intake. Continue other chronic wound care management. New prescription for offloading boot sent due to insurance change. Hopefully she gets this time. Her questions were answered and she was advised to call with any further questions or concerns. Follow up in 1 week. This note was generated with [employer] dictation software. It may contain incorrect words, spelling, and punctuation that were not noted in checking the note before signing.
[2023-04-04 09:27] VITALS: BP 126/62; PULSE 72; RESP 18; TEMP 35.5
--- NOTE | 2023-04-04 10:31 | PCM.WC.PN ---
History of Present Illness Date of Service: 04/04/23 Chief Complaint: Non healing right ankle ulcer History of Wound: Ms. Lam is a 62-year-old who was referred to this facility due to nonhealing right lateral ankle ulcer. Noted a year ago, started out as a bullae and subsequently opened up. She states that over the years, she has had alginate and collagen dressings done at her facility without any significant improvement. History of diabetes mellitus, she is not sure of her most recent A1c but states that it has ranged from 8-13. Also history of tobacco use, smokes daily. There is significant pain around the ulcer but she denies otherwise significant leg pain. Does not wear compression. Sleep sedentary but sleeps in the bed. She feels well otherwise, no chills, fever, nausea, vomiting or change in bowel habit reported. Progress of Wound: No new concerns at this time. Stable. Objective Data Objective Data Vital Signs: Vital Signs Temp Pulse Resp BP O2 Del Method 95.9 F L 72 18 126/62 H Room Air 04/04/23 09:27 04/04/23 09:27 04/04/23 09:27 04/04/23 09:27 03/21/23 09:10 Oxygen Delivery Method Room Air Charges/Coding Procedures Integumentary 111xxx-113xx: 77767 Carla subq tissue 20 sq cm/< Physical Exam Const alert, oriented x3 and no apparent distress General Appearance: cooperative, comfortable and well kempt HEENT normocephalic and head/scalp atraumatic Eyes EOMs intact bilaterally General Eye: normal appearance of both eyes Neck full ROM and supple General: normal visual inspection Resp normal respiratory effort Effort and Inspection: able to speak in complete sentences Extremity General Extremity: edema Skin Wounds: wounds noted Neuro oriented x3, CN's II-XII intact bilaterally and moves all extremities Psych mental status grossly normal, thought process normal, cooperative and affect normal Debridement Note Debridement Note Wound debrided: Right lateral foot/ankle Type of Debridement: Excisional debridement Anesthesia Used: 5% Lidocaine Gel Depth: Down to and including healthy tissue and in the subcutaneous layer Percentage of wound debrided: 100 Instrument Used: 5mm curette Tissue Removed: Slough and devitalized tissue Severity: Fat Layer Exposed Amount of bleeding with debridement: Mild Bleeding Controlled with: Pressure Patient tolerated procedure: Patient tolerated procedure well Post-Debridement Measurements and Additional Note: Post-Debridement Measurements/Treatment WC - Nurse 1 - General Ulcer Assessment Start: 03/21/23 09:10 Freq: Status: Active Protocol: CLOVIS Activity Type Activity Date Activity User E-sign Co-sign Detail Recorded Client Recorded Date Recorded By Document 03/21/23 09:10 [facility] [id number] 03/21/23 09:19 BM Document 03/28/23 10:08 RB [id number] 03/28/23 10:16 RB Document 04/04/23 09:27 RB Desktop 04/04/23 09:34 RB 03/21/23 03/28/23 04/04/23 09:10 10:08 09:27 WC - Today's Visit Information Type of service Follow-up Visit Follow-up Visit Follow-up Visit (Physician/UNEMPLOYMENT INSPECTOR (Physician/UNEMPLOYMENT INSPECTOR (Physician/UNEMPLOYMENT INSPECTOR ) ) ) Arrival Mode Wheelchair Wheelchair Wheelchair Transfer Assistance None None None Patient Identification Verified (Name & Yes Yes Yes ) Patient Requires Transmission-Based No No No Precautions Finger Stick Blood Sugar(mg/dl) (if 113 indicated): Blood Sugar Stated by Patient Vital Signs Temperature (97.8 F-99.1 F) 96.4 F L 96.4 F L 95.9 F L Temperature Source Temporal Temporal Temporal Pulse Rate (60-100) 70 77 72 Pulse Location Monitor Monitor Monitor Respiratory Rate (12-18) 16 18 18 Respiratory rate source Observation Observation Observation Oxygen Delivery Method Room Air Blood Pressure (90/60-120/80) 149/53 H 136/60 H 126/62 H Blood Pressure Mean (mm Hg) 85 85 83 Source Monitor Monitor Monitor Position Sitting Semi-Fowlers Semi-Fowlers Blood Pressure Location Right Arm Left Arm Left Arm History Since Last Visit- (Skip if this is Patient's initial visit) Have you changed medications since your No No No last visit? Any new allergies or adverse reactions No No No Had a fall/change in ADL's that may No No No increase risk of falls Signs or symptoms of abuse and/or No No No neglect since last visit Have you been in the hospital since your No No No last visit? Has dressing in place as prescribed Yes Yes Yes Has compression in place as prescribed Yes Yes Yes Has offloadiing in place as prescribed N/A No No Experienced any changes in pain level or No No No management Left Footwear Slipper Right Footwear Slipper Pain Scale: 0-10 Numeric Is Patient Pain Free? Yes Yes Yes WC - Nurse 1 - General Ulcer Measurement Start: 03/21/23 09:10 Freq: Status: Active Protocol: Activity Type Activity Date Activity User E-sign Co-sign Detail Recorded Client Recorded Date Recorded By Document 03/21/23 09:10 [facility] [id number] 03/21/23 09:19 BMF Document 03/28/23 10:08 RB [id number] 03/28/23 10:16 RB Document 04/04/23 09:27 RB Desktop 04/04/23 09:34 RB 03/21/23 03/28/23 04/04/23 09:10 10:08 09:27 Wound Center Nurse 1 #1 R Lat Ankle -Combined with other wound No No No -Current Size (cm) - Length 1.6 1.6 2 -Current Size (cm) - Width 1.1 1.2 1.5 -Current Size (cm) - Depth 0.4 0.3 0.3 -Total Square Cm 1.76 1.92 3.0 -Date of Last Picture (Recall this 03/21/23 field) -Photo Taken Yes -Epithelialization Small 1-33% -Tunneling No No No -Undermining/Tunneling No No No -Circular Undermining No No No -Exudate Amt Medium Medium Medium -Exudate Type Serosanguineous Serosanguineous Serosanguineous -Wound Margin Distinct, Thickened & Thickened & Outline Rolled Under Rolled Under Attached -Granulation Amt Medium (34-66%) Medium (34-66%) Medium (34-66%) -Granulation Quality Rafael Gonzalez Rafael Gonzalez Rafael Gonzalez -Slough/Fibrin Yes Yes Yes -Necrosis Amt Medium (34-66%) Large (67-100%) Medium (34-66%) -Necrotic Tissue Type Adherent Slough Adherent Slough Adherent Slough -Structure Exposed N/A N/A -Texture (Lori-wound Skin Appearance) Assessed, Assessed Scarring Localized Edema ,Scarring -Moisture (Lori-wound Skin Appearance) Assessed Assessed Assessed -Color (Lori-wound Skin Appearance) Assessed Hemosiderin Assessed Staining -Temperature (Lori-wound Skin No Abnormality No Abnormality No Abnormality Appearance) (Pt Warm) (Pt Warm) (Pt Warm) -Tenderness on Palpation (Lori-wound No No No Skin Appearance) -Ulcer Cleansing Rinsed/ Wound Cleanser Wound Cleanser Irrigated with Saline -Foul Odor after Cleansing No No No -Anesthetic Used 5% Lidocaine 5% Lidocaine 5% Lidocaine Gel Gel Gel Lower Limb Edema Present Yes Yes Right Calf (cm) 35.8 36.5 Right Ankle (cm) 22.5 23 WC - Nurse 2 - General Ulcer CM Notes Start: 03/21/23 09:10 Freq: Status: Active Protocol: Activity Type Activity Date Activity User E-sign Co-sign Detail Recorded Client Recorded Date Recorded By Document 03/21/23 09:32 [id number] 03/21/23 09:37 Document 03/28/23 10:25 [id number] 03/28/23 10:28 Document 04/04/23 10:14 Desktop 04/04/23 10:16 03/21/23 03/28/23 04/04/23 09:32 10:25 10:14 Wound Center Nurse 2 #1 R Lat Ankle -Time 09:34 10:26 10:14 -Correct Patient Yes Yes Yes -Correct Side, Site, Position Yes Yes Yes -Correct Procedure Yes Yes Yes -Procedure Performed Yes Yes Yes -Type of Procedure Debridement Debridement Debridement -Clinical Debridement Subcutaneous Subcutaneous Subcutaneous -Tissue Removed Subcutaneous Subcutaneous Subcutaneous -Post Debridement (cm) - Length 1.5 1.5 1.9 -Post Debridement (cm) - Width 1 1.1 1.0 -Post Debridement (cm) - Depth 0.3 0.2 0.1 -Total Square (Post) (cm) 1.5 1.65 1.90 -Area of Debridement (cm) - Length 1.5 1.5 1.9 -Area of Debridement (cm) - Width 1.0 1.1 1.0 -Total Square (Area) (cm) 1.50 1.65 1.90 -Tunneling No No No -Undermining/Tunneling No No No -Circular Undermining No No No -Wound/Ulcer Outcome Not Healed Not Healed Not Healed -Ulcer Cleansing Rinsed/ Rinsed/ Rinsed/ Irrigated with Irrigated with Irrigated with Saline Saline Saline -Foul Odor after Cleansing No No No -Bioengineered Tissue No No No -Bleeding Controlled with Pressure Pressure Pressure -Treatment Response Procedure Procedure Procedure Tolerated Well Tolerated Well Tolerated Well -Offloading No No No -Debridement - Subq, 1st 20sq cm Yes Yes Yes Pain Scale: 0-10 Numeric Is Patient Pain Free? Yes Yes Yes - Nurse 3 - General Ulcer D/C NN Start: 03/21/23 09:10 Freq: Status: Active Protocol: Activity Type Activity Date Activity User E-sign Co-sign Detail Recorded Client Recorded Date Recorded By Document 03/21/23 09:48 [facility] [id number] 03/21/23 09:49 [facility] Document 03/28/23 10:52 [id number] 03/28/23 10:53 03/21/23 03/28/23 09:48 10:52 Wound Care Center Nurse 3 #1 R Lat Ankle -Ulcer Cleansing Rinsed/ Rinsed/ Irrigated with Irrigated with Saline Saline -Foul Odor after Cleansing No -Primary Dressing Applied Aquacel Extra, Aquacel Extra, Mepilex Border Mepilex Border -Other Dressing BACTROBAN bactroban -Other Covering PER RB RN -Aquacel Extra 1 1 -Mepilex Border 1 1 Right -Tubular Bandage Double Layer Double Layer -Size of Tubigrip Used Size D Size D -Size D ($) 2 2 Treatment Response Procedure Procedure Tolerated Well Tolerated Well Pain Scale: 0-10 Numeric Is Patient Pain Free? Yes Yes Teaching: Wound Center Dressing Your Wound -Person Taught Patient -Teaching Method Discussion, Demonstration -Response to teaching Verbalize understanding WC - Visit Discharge Discharge Condition Stable Stable Ambulatory Status Wheelchair Wheelchair Transportation ECF Private Auto Medication Reconcilliation completed & No provided to patient/care provider Clinical Summary of Care Provided Yes Facility Type Family Nurse Care Facility Assessment/Plan Assessment/Plan (1) 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: CODE(S): L97.312 - Non-pressure chronic ulcer of right ankle with fat layer exposed (2) Insulin dependent diabetes mellitus: (3) Tobacco abuse: CODE(S): Z72.0 - Tobacco use PLAN: Plan Debridement done as documented above, procedure was well-tolerated. Stable. Continue Aquacel extra, Mupirocin and foam dressing. Change daily. Double layer Tubigrip for edema management. Optimal protein intake. Continue other chronic wound care management and off loading. Her questions were answered and she was advised to call with any further questions or concerns. Follow up in 1 week. This note was generated with [employer] dictation software. It may contain incorrect words, spelling, and punctuation that were not noted in checking the note before signing.
[2023-04-11 09:55] VITALS: BP 114/63; PULSE 66; RESP 18; TEMP 35.5
--- NOTE | 2023-04-11 13:50 | PN.PCM_ITS ---
History of Present Illness Date of Service: 04/11/23 Chief Complaint: Non healing right ankle ulcer History of Wound: Ms. Lam is a 62-year-old who was referred to this facility due to nonhealing right lateral ankle ulcer. Noted a year ago, started out as a bullae and subsequently opened up. She states that over the years, she has had alginate and collagen dressings done at her facility without any significant improvement. History of diabetes mellitus, she is not sure of her most recent A1c but states that it has ranged from 8-13. Also history of tobacco use, smokes daily. There is significant pain around the ulcer but she denies otherwise significant leg pain. Does not wear compression. Sleep sedentary but sleeps in the bed. She feels well otherwise, no chills, fever, nausea, vomiting or change in bowel habit reported. Progress of Wound: No new concerns at this time. Stable. Objective Data Objective Data Vital Signs: Vital Signs Temp Pulse Resp BP O2 Del Method 96 F L 66 18 114/63 Room Air 04/11/23 09:55 04/11/23 09:55 04/11/23 09:55 04/11/23 09:55 03/21/23 09:10 Oxygen Delivery Method Room Air Charges/Coding Procedures Integumentary 111xxx-113xx: 24365 Carla subq tissue 20 sq cm/< Physical Exam Const alert, oriented x3 and no apparent distress General Appearance: cooperative, comfortable and well kempt HEENT normocephalic and head/scalp atraumatic Eyes EOMs intact bilaterally General Eye: normal appearance of both eyes Neck full ROM and supple General: normal visual inspection Resp normal respiratory effort Effort and Inspection: able to speak in complete sentences Extremity General Extremity: edema Skin Wounds: wounds noted Neuro oriented x3, CN's II-XII intact bilaterally and moves all extremities Psych mental status grossly normal, thought process normal, cooperative and affect normal Debridement Note Debridement Note Wound debrided: Right lateral foot/ankle Type of Debridement: Excisional debridement Anesthesia Used: 5% Lidocaine Gel Depth: Down to and including healthy tissue and in the subcutaneous layer Percentage of wound debrided: 100 Instrument Used: 5mm curette Tissue Removed: Slough and devitalized tissue Severity: Fat Layer Exposed Amount of bleeding with debridement: Mild Bleeding Controlled with: Pressure Patient tolerated procedure: Patient tolerated procedure well Post-Debridement Measurements and Additional Note: Post-Debridement Measurements/Treatment - Nurse 1 - General Ulcer Assessment Start: 03/21/23 09:10 Freq: Status: Active Protocol: CLOVIS Activity Type Activity Date Activity User E-sign Co-sign Detail Recorded Client Recorded Date Recorded By Document 03/21/23 09:10 [facility] [id number] 03/21/23 09:19 BM Document 03/28/23 10:08 RB [id number] 03/28/23 10:16 RB Document 04/04/23 09:27 RB Desktop 04/04/23 09:34 RB Document 04/11/23 09:55 RB Desktop 04/11/23 09:57 RB 03/21/23 03/28/23 04/04/23 09:10 10:08 09:27 - Today's Visit Information Type of service Follow-up Visit Follow-up Visit Follow-up Visit (Physician/ARMATURE TESTER (Physician/ARMATURE TESTER (Physician/ARMATURE TESTER ) ) ) Arrival Mode Wheelchair Wheelchair Wheelchair Transfer Assistance None None None Patient Identification Verified (Name & Yes Yes Yes ) Patient Requires Transmission-Based No No No Precautions Finger Stick Blood Sugar(mg/dl) (if 113 indicated): Blood Sugar Stated by Patient Vital Signs Temperature (97.8 F-99.1 F) 96.4 F L 96.4 F L 95.9 F L Temperature Source Temporal Temporal Temporal Pulse Rate (60-100) 70 77 72 Pulse Location Monitor Monitor Monitor Respiratory Rate (12-18) 16 18 18 Respiratory rate source Observation Observation Observation Oxygen Delivery Method Room Air Blood Pressure (90/60-120/80) 149/53 H 136/60 H 126/62 H Blood Pressure Mean (mm Hg) 85 85 83 Source Monitor Monitor Monitor Position Sitting Semi-Fowlers Semi-Fowlers Blood Pressure Location Right Arm Left Arm Left Arm History Since Last Visit- (Skip if this is Patient's initial visit) Have you changed medications since your No No No last visit? Any new allergies or adverse reactions No No No Had a fall/change in ADL's that may No No No increase risk of falls Signs or symptoms of abuse and/or No No No neglect since last visit Have you been in the hospital since your No No No last visit? Has dressing in place as prescribed Yes Yes Yes Has compression in place as prescribed Yes Yes Yes Has offloadiing in place as prescribed N/A No No Experienced any changes in pain level or No No No management Left Footwear Slipper Right Footwear Slipper Pain Scale: 0-10 Numeric Is Patient Pain Free? Yes Yes Yes 04/11/23 09:55 WC - Today's Visit Information Type of service Follow-up Visit (Physician/ARMATURE TESTER ) Arrival Mode Wheelchair Transfer Assistance None Patient Identification Verified (Name & Yes ) Patient Requires Transmission-Based No Precautions Finger Stick Blood Sugar(mg/dl) (if indicated): Blood Sugar Vital Signs Temperature (97.8 F-99.1 F) 96 F L Temperature Source Temporal Pulse Rate (60-100) 66 Pulse Location Monitor Respiratory Rate (12-18) 18 Respiratory rate source Observation Oxygen Delivery Method Blood Pressure (90/60-120/80) 114/63 Blood Pressure Mean (mm Hg) 80 Source Monitor Position Semi-Fowlers Blood Pressure Location Left Arm History Since Last Visit- (Skip if this is Patient's initial visit) Have you changed medications since your No last visit? Any new allergies or adverse reactions No Had a fall/change in ADL's that may No increase risk of falls Signs or symptoms of abuse and/or No neglect since last visit Have you been in the hospital since your No last visit? Has dressing in place as prescribed Yes Has compression in place as prescribed No Has offloadiing in place as prescribed No Experienced any changes in pain level or No management Left Footwear Right Footwear Pain Scale: 0-10 Numeric Is Patient Pain Free? Yes - Nurse 1 - General Ulcer Measurement Start: 03/21/23 09:10 Freq: Status: Active Protocol: Activity Type Activity Date Activity User E-sign Co-sign Detail Recorded Client Recorded Date Recorded By Document 03/21/23 09:10 [facility] [id number] 03/21/23 09:19 BM Document 03/28/23 10:08 RB [id number] 03/28/23 10:16 RB Document 04/04/23 09:27 RB Desktop 04/04/23 09:34 RB Document 04/11/23 09:55 RB Desktop 04/11/23 09:57 RB 03/21/23 03/28/23 04/04/23 09:10 10:08 09:27 Wound Center Nurse 1 #1 R Lat Ankle -Combined with other wound No No No -Current Size (cm) - Length 1.6 1.6 2 -Current Size (cm) - Width 1.1 1.2 1.5 -Current Size (cm) - Depth 0.4 0.3 0.3 -Total Square Cm 1.76 1.92 3.0 -Date of Last Picture (Recall this 03/21/23 field) -Photo Taken Yes -Epithelialization Small 1-33% -Tunneling No No No -Undermining/Tunneling No No No -Circular Undermining No No No -Exudate Amt Medium Medium Medium -Exudate Type Serosanguineous Serosanguineous Serosanguineous -Wound Margin Distinct, Thickened & Thickened & Outline Rolled Under Rolled Under Attached -Granulation Amt Medium (34-66%) Medium (34-66%) Medium (34-66%) -Granulation Quality [place] Cressey [place]sey -Slough/Fibrin Yes Yes Yes -Necrosis Amt Medium (34-66%) Large (67-100%) Medium (34-66%) -Necrotic Tissue Type Adherent Slough Adherent Slough Adherent Slough -Structure Exposed N/A N/A -Texture (Lori-wound Skin Appearance) Assessed, Assessed Scarring Localized Edema ,Scarring -Moisture (Lori-wound Skin Appearance) Assessed Assessed Assessed -Color (Lori-wound Skin Appearance) Assessed Hemosiderin Assessed Staining -Temperature (Lori-wound Skin No Abnormality No Abnormality No Abnormality Appearance) (Pt Warm) (Pt Warm) (Pt Warm) -Tenderness on Palpation (Lori-wound No No No Skin Appearance) -Ulcer Cleansing Rinsed/ Wound Cleanser Wound Cleanser Irrigated with Saline -Foul Odor after Cleansing No No No -Anesthetic Used 5% Lidocaine 5% Lidocaine 5% Lidocaine Gel Gel Gel Lower Limb Edema Present Yes Yes Right Calf (cm) 35.8 36.5 Right Ankle (cm) 22.5 23 04/11/23 09:55 Wound Center Nurse 1 #1 R Lat Ankle -Combined with other wound No -Current Size (cm) - Length 1.7 -Current Size (cm) - Width 1.7 -Current Size (cm) - Depth 0.3 -Total Square Cm 2.89 -Date of Last Picture (Recall this field) -Photo Taken -Epithelialization -Tunneling No -Undermining/Tunneling No -Circular Undermining No -Exudate Amt Medium -Exudate Type Serosanguineous -Wound Margin Thickened & Rolled Under -Granulation Amt Medium (34-66%) -Granulation Quality [place] -Slough/Fibrin Yes -Necrosis Amt Medium (34-66%) -Necrotic Tissue Type Adherent Slough -Structure Exposed N/A -Texture (Lori-wound Skin Appearance) Assessed -Moisture (Lori-wound Skin Appearance) Assessed -Color (Lori-wound Skin Appearance) Assessed -Temperature (Lori-wound Skin No Abnormality Appearance) (Pt Warm) -Tenderness on Palpation (Lori-wound No Skin Appearance) -Ulcer Cleansing Wound Cleanser -Foul Odor after Cleansing No -Anesthetic Used 5% Lidocaine Gel Lower Limb Edema Present Yes Right Calf (cm) 36 Right Ankle (cm) 23.5 WC - Nurse 2 - General Ulcer CM Notes Start: 03/21/23 09:10 Freq: Status: Active Protocol: Activity Type Activity Date Activity User E-sign Co-sign Detail Recorded Client Recorded Date Recorded By Document 03/21/23 09:32 [id number] 03/21/23 09:37 Document 03/28/23 10:25 [id number] 03/28/23 10:28 Document 04/04/23 10:14 Desktop 04/04/23 10:16 Document 04/11/23 10:15 Desktop 04/11/23 10:19 03/21/23 03/28/23 04/04/23 09:32 10:25 10:14 Wound Center Nurse 2 #1 R Lat Ankle -Time 09:34 10:26 10:14 -Correct Patient Yes Yes Yes -Correct Side, Site, Position Yes Yes Yes -Correct Procedure Yes Yes Yes -Procedure Performed Yes Yes Yes -Type of Procedure Debridement Debridement Debridement -Clinical Debridement Subcutaneous Subcutaneous Subcutaneous -Tissue Removed Subcutaneous Subcutaneous Subcutaneous -Post Debridement (cm) - Length 1.5 1.5 1.9 -Post Debridement (cm) - Width 1 1.1 1.0 -Post Debridement (cm) - Depth 0.3 0.2 0.1 -Total Square (Post) (cm) 1.5 1.65 1.90 -Area of Debridement (cm) - Length 1.5 1.5 1.9 -Area of Debridement (cm) - Width 1.0 1.1 1.0 -Total Square (Area) (cm) 1.50 1.65 1.90 -Tunneling No No No -Undermining/Tunneling No No No -Circular Undermining No No No -Wound/Ulcer Outcome Not Healed Not Healed Not Healed -Ulcer Cleansing Rinsed/ Rinsed/ Rinsed/ Irrigated with Irrigated with Irrigated with Saline Saline Saline -Foul Odor after Cleansing No No No -Bioengineered Tissue No No No -Bleeding Controlled with Pressure Pressure Pressure -Treatment Response Procedure Procedure Procedure Tolerated Well Tolerated Well Tolerated Well -Offloading No No No -Type of Offloading -Other Type of Offloading -Assistive Device(s) -Debridement - Subq, 1st 20sq cm Yes Yes Yes Pain Scale: 0-10 Numeric Is Patient Pain Free? Yes Yes Yes 04/11/23 10:15 Wound Center Nurse 2 #1 R Lat Ankle -Time 10:16 -Correct Patient Yes -Correct Side, Site, Position Yes -Correct Procedure Yes -Procedure Performed Yes -Type of Procedure Debridement -Clinical Debridement Subcutaneous -Tissue Removed Subcutaneous -Post Debridement (cm) - Length 1.5 -Post Debridement (cm) - Width 1.2 -Post Debridement (cm) - Depth 0.2 -Total Square (Post) (cm) 1.80 -Area of Debridement (cm) - Length 1.5 -Area of Debridement (cm) - Width 1.2 -Total Square (Area) (cm) 1.80 -Tunneling No -Undermining/Tunneling No -Circular Undermining -Wound/Ulcer Outcome Not Healed -Ulcer Cleansing Rinsed/ Irrigated with Saline -Foul Odor after Cleansing No -Bioengineered Tissue No -Bleeding Controlled with Pressure -Treatment Response Procedure Tolerated Well -Offloading Yes -Type of Offloading Other -Other Type of Offloading prafo -Assistive Device(s) Wheelchair -Debridement - Subq, 1st 20sq cm Yes Pain Scale: 0-10 Numeric Is Patient Pain Free? Yes - Nurse 3 - General Ulcer D/C NN Start: 03/21/23 09:10 Freq: Status: Active Protocol: Activity Type Activity Date Activity User E-sign Co-sign Detail Recorded Client Recorded Date Recorded By Document 03/21/23 09:48 [facility] [id number] 03/21/23 09:49 [facility] Document 03/28/23 10:52 [id number] 03/28/23 10:53 RB Document 04/04/23 10:39 [facility] Desktop 04/04/23 10:40 [facility] Document 04/11/23 10:35 RB Desktop 04/11/23 10:36 RB 03/21/23 03/28/23 04/04/23 09:48 10:52 10:39 Wound Care Center Nurse 3 #1 R Lat Ankle -Ulcer Cleansing Rinsed/ Rinsed/ Rinsed/ Irrigated with Irrigated with Irrigated with Saline Saline Saline -Foul Odor after Cleansing No No -Primary Dressing Applied Aquacel Extra, Aquacel Extra, Aquacel Extra, Mepilex Border Mepilex Border Mepilex Border -Other Dressing BACTROBAN bactroban bactroban -Other Covering PER RB RN -Aquacel Extra 1 1 1 -Mepilex Border 1 1 1 Right -Tubular Bandage Double Layer Double Layer Double Layer -Size of Tubigrip Used Size D Size D Size D -Size D ($) 2 2 2 Treatment Response Procedure Procedure Procedure Tolerated Well Tolerated Well Tolerated Well Pain Scale: 0-10 Numeric Is Patient Pain Free? Yes Yes Yes Teaching: Wound Center Dressing Your Wound -Person Taught Patient -Teaching Method Discussion, Demonstration -Response to teaching Verbalize understanding WC - Visit Discharge Discharge Condition Stable Stable Stable Ambulatory Status Wheelchair Wheelchair Wheelchair Transportation ECF Private Auto ecf Medication Reconcilliation completed & No provided to patient/care provider Clinical Summary of Care Provided Yes Facility Type [facility] Facility 04/11/23 10:35 Wound Care Center Nurse 3 #1 R Lat Ankle -Ulcer Cleansing Wound Cleanser -Foul Odor after Cleansing -Primary Dressing Applied Aquacel Extra, Mepilex Border -Other Dressing bactroban -Other Covering -Aquacel Extra 1 -Mepilex Border 1 Right -Tubular Bandage Single Layer -Size of Tubigrip Used Size D -Size D ($) 1 Treatment Response Procedure Tolerated Well Pain Scale: 0-10 Numeric Is Patient Pain Free? Yes Teaching: Wound Center Dressing Your Wound -Person Taught -Teaching Method -Response to teaching WC - Visit Discharge Discharge Condition Stable Ambulatory Status Wheelchair Transportation Private Auto Medication Reconcilliation completed & No provided to patient/care provider Clinical Summary of Care Provided Yes Facility Type Assessment/Plan Assessment/Plan (1) 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: CODE(S): L97.312 - Non-pressure chronic ulcer of right ankle with fat layer exposed (2) Insulin dependent diabetes mellitus: (3) Tobacco abuse: CODE(S): Z72.0 - Tobacco use PLAN: Plan Debridement done as documented above, procedure was well-tolerated. Stable. Continue Aquacel extra, Mupirocin and foam dressing. Change daily. Double layer Tubigrip for edema management. Optimal protein intake. Continue other chronic wound care management and off loading. Her questions were answered and she was advised to call with any further questions or concerns. Follow up in 1 week. This note was generated with [employer] dictation software. It may contain incorrect words, spelling, and punctuation that were not noted in checking the note before signing.
== END 2023-04-13 23:59 | disposition home or self-care (01) ==
LOC: WC 10:00
PROVIDERS: PCP Internal Medicine; Referring Provider Internal Medicine; Visit Provider Internal Medicine
DX: E11.622 Type 2 diabetes mellitus with other skin ulcer (principal); L97.312 Non-pressure chronic ulcer of right ankle with fat layer exposed; Z79.4 Long term (current) use of insulin; Z72.0 Tobacco use
CPT/HCPCS: 11042

== ENCOUNTER 2023-05-02 09:15 | Outpatient (RCR) | payer MEDICARE, MEDICAID, SELFPAY ==
[2023-04-14 00:35] VITALS: BP 114/63; PULSE 66; RESP 18; TEMP 35.5
[2023-04-18 09:24] VITALS: BP 124/57; PULSE 73; RESP 18; TEMP 35.5
--- NOTE | 2023-04-18 09:55 | PCM.WC.PN ---
History of Present Illness Date of Service: 04/18/23 Chief Complaint: Non healing right ankle ulcer History of Wound: Ms. Lam is a 62-year-old who was referred to this facility due to nonhealing right lateral ankle ulcer. Noted a year ago, started out as a bullae and subsequently opened up. She states that over the years, she has had alginate and collagen dressings done at her facility without any significant improvement. History of diabetes mellitus, she is not sure of her most recent A1c but states that it has ranged from 8-13. Also history of tobacco use, smokes daily. There is significant pain around the ulcer but she denies otherwise significant leg pain. Does not wear compression. Sleep sedentary but sleeps in the bed. She feels well otherwise, no chills, fever, nausea, vomiting or change in bowel habit reported. Progress of Wound: Overall stable. No new concerns reported at this time. Objective Data Objective Data Vital Signs: Vital Signs Temp Pulse Resp BP 96 F L 73 18 124/57 H 04/18/23 09:24 04/18/23 09:24 04/18/23 09:24 04/18/23 09:24 Charges/Coding Procedures Integumentary 111xxx-113xx: 90347 Carla subq tissue 20 sq cm/< Physical Exam Const alert, oriented x3 and no apparent distress General Appearance: cooperative, comfortable and well kempt HEENT normocephalic and head/scalp atraumatic Eyes EOMs intact bilaterally General Eye: normal appearance of both eyes Neck full ROM and supple General: normal visual inspection Resp normal respiratory effort Effort and Inspection: able to speak in complete sentences Extremity General Extremity: edema Skin Wounds: wounds noted Neuro oriented x3, CN's II-XII intact bilaterally and moves all extremities Psych mental status grossly normal, thought process normal, cooperative and affect normal Debridement Note Debridement Note Wound debrided: Right lateral foot/ankle Type of Debridement: Excisional debridement Anesthesia Used: 5% Lidocaine Gel Depth: Down to and including healthy tissue and in the subcutaneous layer Percentage of wound debrided: 100 Instrument Used: 5mm curette Tissue Removed: Slough and devitalized tissue Severity: Fat Layer Exposed Amount of bleeding with debridement: Mild Bleeding Controlled with: Pressure Patient tolerated procedure: Patient tolerated procedure well Post-Debridement Measurements and Additional Note: Post-Debridement Measurements/Treatment WC - Nurse 1 - General Ulcer Assessment Start: 04/18/23 09:24 Freq: Status: Active Protocol: CLOVIS Activity Type Activity Date Activity User E-sign Co-sign Detail Recorded Client Recorded Date Recorded By Document 04/18/23 09:24 Desktop 04/18/23 09:26 RB 04/18/23 09:24 - Today's Visit Information Type of service Follow-up Visit (Physician/CHILD HEALTH ASSOCIATE ) Arrival Mode Wheelchair Transfer Assistance None Patient Identification Verified (Name & Yes ) Patient Requires Transmission-Based No Precautions Vital Signs Temperature (97.8 F-99.1 F) 96 F L Temperature Source Temporal Pulse Rate (60-100) 73 Pulse Location Monitor Respiratory Rate (12-18) 18 Respiratory rate source Observation Blood Pressure (90/60-120/80) 124/57 H Blood Pressure Mean (mm Hg) 79 Source Monitor Position Semi-Fowlers Blood Pressure Location Left Arm History Since Last Visit- (Skip if this is Patient's initial visit) Have you changed medications since your No last visit? Any new allergies or adverse reactions No Had a fall/change in ADL's that may No increase risk of falls Signs or symptoms of abuse and/or No neglect since last visit Have you been in the hospital since your No last visit? Has dressing in place as prescribed Yes Has compression in place as prescribed Yes Has offloadiing in place as prescribed No Experienced any changes in pain level or No management Pain Scale: 0-10 Numeric Is Patient Pain Free? Yes - Nurse 1 - General Ulcer Measurement Start: 04/18/23 09:24 Freq: Status: Active Protocol: Activity Type Activity Date Activity User E-sign Co-sign Detail Recorded Client Recorded Date Recorded By Document 04/18/23 09:24 RB Desktop 04/18/23 09:26 RB 04/18/23 09:24 Wound Center Nurse 1 #1 R Lat Ankle -Combined with other wound No -Current Size (cm) - Length 1.7 -Current Size (cm) - Width 1.1 -Current Size (cm) - Depth 0.2 -Total Square Cm 1.87 -Tunneling No -Undermining/Tunneling No -Circular Undermining No -Exudate Amt Medium -Exudate Type Serosanguineous -Wound Margin Distinct, Outline Attached -Granulation Amt Medium (34-66%) -Granulation Quality [place] -Slough/Fibrin Yes -Necrosis Amt Medium (34-66%) -Necrotic Tissue Type Adherent Slough -Structure Exposed N/A -Texture (Lori-wound Skin Appearance) Assessed -Moisture (Lori-wound Skin Appearance) Assessed -Color (Lori-wound Skin Appearance) Assessed -Temperature (Lori-wound Skin No Abnormality Appearance) (Pt Warm) -Tenderness on Palpation (Lori-wound No Skin Appearance) -Ulcer Cleansing Wound Cleanser -Foul Odor after Cleansing No -Anesthetic Used 5% Lidocaine Gel Lower Limb Edema Present Yes Right Calf (cm) 36.4 Right Ankle (cm) 22.7 WC - Nurse 2 - General Ulcer CM Notes Start: 04/18/23 09:24 Freq: Status: Active Protocol: Activity Type Activity Date Activity User E-sign Co-sign Detail Recorded Client Recorded Date Recorded By Document 04/18/23 09:38 Desktop 04/18/23 09:43 04/18/23 09:38 Wound Center Nurse 2 #1 R Lat Ankle -Time 09:38 -Correct Patient Yes -Correct Side, Site, Position Yes -Correct Procedure Yes -Procedure Performed Yes -Type of Procedure Debridement -Clinical Debridement Subcutaneous -Tissue Removed Subcutaneous -Post Debridement (cm) - Length 1.5 -Post Debridement (cm) - Width 1.0 -Post Debridement (cm) - Depth 0.2 -Total Square (Post) (cm) 1.50 -Area of Debridement (cm) - Length 1.5 -Area of Debridement (cm) - Width 1.0 -Total Square (Area) (cm) 1.50 -Tunneling No -Undermining/Tunneling No -Circular Undermining No -Wound/Ulcer Outcome Not Healed -Ulcer Cleansing Rinsed/ Irrigated with Saline -Foul Odor after Cleansing No -Bioengineered Tissue No -Bleeding Controlled with Pressure -Treatment Response Procedure Tolerated Well -Debridement - Subq, 1st 20sq cm Yes Pain Scale: 0-10 Numeric Is Patient Pain Free? Yes - Nurse 3 - General Ulcer D/C NN Start: 04/18/23 09:24 Freq: Status: Active Protocol: Activity Type Activity Date Activity User E-sign Co-sign Detail Recorded Client Recorded Date Recorded By Document 04/18/23 09:50 Laptop 04/18/23 09:50 04/18/23 09:50 Wound Care Center Nurse 3 #1 R Lat Ankle -Ulcer Cleansing Rinsed/ Irrigated with Saline -Foul Odor after Cleansing No -Primary Dressing Applied Aquacel Extra, Mepilex Border -Aquacel Extra 1 -Mepilex Border 1 Right -Tubular Bandage Double Layer -Size of Tubigrip Used Size D -Size D ($) 2 Pain Scale: 0-10 Numeric Is Patient Pain Free? Yes WC - Visit Discharge Discharge Condition Stable Ambulatory Status Wheelchair Transportation Private Auto Accompanied by NH transport Medication Reconcilliation completed & Yes provided to patient/care provider Clinical Summary of Care Provided Yes Assessment/Plan Assessment/Plan (1) 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: CODE(S): L97.312 - Non-pressure chronic ulcer of right ankle with fat layer exposed (2) Insulin dependent diabetes mellitus: (3) Tobacco abuse: CODE(S): Z72.0 - Tobacco use PLAN: Plan Debridement done as documented above, procedure was well-tolerated. Some improvement noted. Continue Aquacel extra, Mupirocin and foam dressing. Change daily. Double layer Tubigrip for edema management. Optimal protein intake. Continue other chronic wound care management and off loading. Her questions were answered and she was advised to call with any further questions or concerns. Follow up in 1 week. This note was generated with [employer] dictation software. It may contain incorrect words, spelling, and punctuation that were not noted in checking the note before signing.
[2023-04-25 08:57] VITALS: BP 95/51; PULSE 74; RESP 16; TEMP 35.8
--- NOTE | 2023-04-25 13:17 | PN.PCM_ITS ---
History of Present Illness Date of Service: 04/25/23 Chief Complaint: Non healing right ankle ulcer History of Wound: Ms. Lam is a 62-year-old who was referred to this facility due to nonhealing right lateral ankle ulcer. Noted a year ago, started out as a bullae and subsequently opened up. She states that over the years, she has had alginate and collagen dressings done at her facility without any significant improvement. History of diabetes mellitus, she is not sure of her most recent A1c but states that it has ranged from 8-13. Also history of tobacco use, smokes daily. There is significant pain around the ulcer but she denies otherwise significant leg pain. Does not wear compression. Sleep sedentary but sleeps in the bed. She feels well otherwise, no chills, fever, nausea, vomiting or change in bowel habit reported. Progress of Wound: Overall stable. No new concerns reported at this time. Objective Data Objective Data Vital Signs: Vital Signs Temp Pulse Resp BP O2 Del Method 96.5 F L 74 16 95/51 L Room Air 04/25/23 08:57 04/25/23 08:57 04/25/23 08:57 04/25/23 08:57 04/25/23 08:57 Oxygen Delivery Method Room Air Charges/Coding Procedures Integumentary 111xxx-113xx: 73864 Carla subq tissue 20 sq cm/< Physical Exam Const alert, oriented x3 and no apparent distress General Appearance: cooperative, comfortable and well kempt HEENT normocephalic and head/scalp atraumatic Eyes EOMs intact bilaterally General Eye: normal appearance of both eyes Neck full ROM and supple General: normal visual inspection Resp normal respiratory effort Effort and Inspection: able to speak in complete sentences Extremity General Extremity: edema Skin Wounds: wounds noted Neuro oriented x3, CN's II-XII intact bilaterally and moves all extremities Psych mental status grossly normal, thought process normal, cooperative and affect normal Debridement Note Debridement Note Wound debrided: Right lateral foot/ankle Type of Debridement: Excisional debridement Anesthesia Used: 5% Lidocaine Gel Depth: Down to and including healthy tissue and in the subcutaneous layer Percentage of wound debrided: 100 Instrument Used: 5mm curette Tissue Removed: Slough and devitalized tissue Severity: Fat Layer Exposed Amount of bleeding with debridement: Mild Bleeding Controlled with: Pressure Patient tolerated procedure: Patient tolerated procedure well Post-Debridement Measurements and Additional Note: Post-Debridement Measurements/Treatment RUY - Nurse 1 - General Ulcer Assessment Start: 04/18/23 09:24 Freq: Status: Active Protocol: CLOVIS Activity Type Activity Date Activity User E-sign Co-sign Detail Recorded Client Recorded Date Recorded By Document 04/18/23 09:24 RB Desktop 04/18/23 09:26 RB Document 04/25/23 08:57 BMF Desktop 04/25/23 09:02 BMF 04/18/23 04/25/23 09:24 08:57 WC - Today's Visit Information Type of service Follow-up Visit Follow-up Visit (Physician/FISH HATCHERY MANAGER (Physician/FISH HATCHERY MANAGER ) ) Arrival Mode Wheelchair Wheelchair Transfer Assistance None None Patient Identification Verified (Name & Yes Yes ) Patient Requires Transmission-Based No No Precautions Vital Signs Temperature (97.8 F-99.1 F) 96 F L 96.5 F L Temperature Source Temporal Temporal Pulse Rate (60-100) 73 74 Pulse Location Monitor Monitor Respiratory Rate (12-18) 18 16 Respiratory rate source Observation Observation Oxygen Delivery Method Room Air Blood Pressure (90/60-120/80) 124/57 H 95/51 L Blood Pressure Mean (mm Hg) 79 65 Source Monitor Monitor Position Semi-Fowlers Sitting Blood Pressure Location Left Arm Right Arm Comment rechk bp left arm 95/50. pt denies sx History Since Last Visit- (Skip if this is Patient's initial visit) Have you changed medications since your No No last visit? Any new allergies or adverse reactions No No Had a fall/change in ADL's that may No No increase risk of falls Signs or symptoms of abuse and/or No No neglect since last visit Have you been in the hospital since your No No last visit? Has dressing in place as prescribed Yes Yes Has compression in place as prescribed Yes Yes Has offloadiing in place as prescribed No N/A Experienced any changes in pain level or No No management Left Footwear Regular Shoe Right Footwear Regular Shoe Pain Scale: 0-10 Numeric Is Patient Pain Free? Yes Yes RUY - Nurse 1 - General Ulcer Measurement Start: 04/18/23 09:24 Freq: Status: Active Protocol: Activity Type Activity Date Activity User E-sign Co-sign Detail Recorded Client Recorded Date Recorded By Document 04/18/23 09:24 RB Desktop 04/18/23 09:26 RB Document 04/25/23 08:57 [facility] Desktop 04/25/23 09:02 [facility] 04/18/23 04/25/23 09:24 08:57 Wound Center Nurse 1 #1 R Lat Ankle -Combined with other wound No No -Current Size (cm) - Length 1.7 1.7 -Current Size (cm) - Width 1.1 1.1 -Current Size (cm) - Depth 0.2 0.3 -Total Square Cm 1.87 1.87 -Photo Taken No -Epithelialization None Present -Tunneling No No -Undermining/Tunneling No No -Circular Undermining No No -Exudate Amt Medium Medium -Exudate Type Serosanguineous Serosanguineous -Wound Margin Distinct, Distinct, Outline Outline Attached Attached -Granulation Amt Medium (34-66%) Small (1-33%) -Granulation Quality [place] Red -Slough/Fibrin Yes Yes -Necrosis Amt Medium (34-66%) Large (67-100%) -Necrotic Tissue Type Adherent Slough Adherent Slough -Structure Exposed N/A -Texture (Lori-wound Skin Appearance) Assessed Assessed, Scarring -Moisture (Lori-wound Skin Appearance) Assessed Assessed -Color (Lori-wound Skin Appearance) Assessed Assessed -Temperature (Lori-wound Skin No Abnormality No Abnormality Appearance) (Pt Warm) (Pt Warm) -Tenderness on Palpation (Lori-wound No No Skin Appearance) -Ulcer Cleansing Wound Cleanser Rinsed/ Irrigated with Saline -Foul Odor after Cleansing No No -Anesthetic Used 5% Lidocaine 5% Lidocaine Gel Gel Lower Limb Edema Present Yes Right Calf (cm) 36.4 Right Ankle (cm) 22.7 WC - Nurse 2 - General Ulcer CM Notes Start: 04/18/23 09:24 Freq: Status: Active Protocol: Activity Type Activity Date Activity User E-sign Co-sign Detail Recorded Client Recorded Date Recorded By Document 04/18/23 09:38 Desktop 04/18/23 09:43 Document 04/25/23 09:32 Desktop 04/25/23 09:36 04/18/23 04/25/23 09:38 09:32 Wound Center Nurse 2 #1 R Lat Ankle -Time 09:38 09:32 -Correct Patient Yes Yes -Correct Side, Site, Position Yes Yes -Correct Procedure Yes Yes -Procedure Performed Yes Yes -Type of Procedure Debridement Debridement -Clinical Debridement Subcutaneous Subcutaneous -Tissue Removed Subcutaneous Subcutaneous -Post Debridement (cm) - Length 1.5 1.3 -Post Debridement (cm) - Width 1.0 1 -Post Debridement (cm) - Depth 0.2 0.1 -Total Square (Post) (cm) 1.50 1.3 -Area of Debridement (cm) - Length 1.5 1.3 -Area of Debridement (cm) - Width 1.0 1 -Total Square (Area) (cm) 1.50 1.3 -Tunneling No No -Undermining/Tunneling No No -Circular Undermining No No -Wound/Ulcer Outcome Not Healed Not Healed -Ulcer Cleansing Rinsed/ Rinsed/ Irrigated with Irrigated with Saline Saline -Foul Odor after Cleansing No No -Bioengineered Tissue No No -Bleeding Controlled with Pressure Pressure -Treatment Response Procedure Procedure Tolerated Well Tolerated Well -Debridement - Subq, 1st 20sq cm Yes Yes Pain Scale: 0-10 Numeric Is Patient Pain Free? Yes Yes - Nurse 3 - General Ulcer D/C NN Start: 04/18/23 09:24 Freq: Status: Active Protocol: Activity Type Activity Date Activity User E-sign Co-sign Detail Recorded Client Recorded Date Recorded By Document 04/18/23 09:50 Laptop 04/18/23 09:50 Document 04/25/23 09:41 [facility] Desktop 04/25/23 09:42 [facility] 04/18/23 04/25/23 09:50 09:41 Wound Care Center Nurse 3 #1 R Lat Ankle -Ulcer Cleansing Rinsed/ Rinsed/ Irrigated with Irrigated with Saline Saline -Foul Odor after Cleansing No No -Primary Dressing Applied Aquacel Extra, Aquacel Extra, Mepilex Border Mepilex Border -Other Dressing bactroban -Aquacel Extra 1 1 -Mepilex Border 1 1 Right -Tubular Bandage Double Layer Double Layer -Size of Tubigrip Used Size D Size D -Size D ($) 2 2 Treatment Response Procedure Tolerated Well Pain Scale: 0-10 Numeric Is Patient Pain Free? Yes Yes - Visit Discharge Discharge Condition Stable Stable Ambulatory Status Wheelchair Wheelchair Transportation Private Auto Accompanied by [place] transport Medication Reconcilliation completed & Yes provided to patient/care provider Clinical Summary of Care Provided Yes Facility Type Fitting Room Associate Care Facility Assessment/Plan Assessment/Plan (1) 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: CODE(S): L97.312 - Non-pressure chronic ulcer of right ankle with fat layer exposed (2) Insulin dependent diabetes mellitus: (3) Tobacco abuse: CODE(S): Z72.0 - Tobacco use PLAN: Plan Debridement done as documented above, procedure was well-tolerated. Some improvement noted. Continue Aquacel extra, Mupirocin and foam dressing. Change daily. Double layer Tubigrip for edema management. Optimal protein intake. Continue other chronic wound care management and off loading. Her questions were answered and she was advised to call with any further questions or concerns. Follow up in 1 week. This note was generated with myaNUMBER dictation software. It may contain incorrect words, spelling, and punctuation that were not noted in checking the note before signing.
[2023-05-02 09:16] VITALS: BP 135/66; PULSE 64; RESP 16; TEMP 35.8
--- NOTE | 2023-05-02 10:07 | PCM.WC.PN ---
History of Present Illness Date of Service: 05/02/23 Chief Complaint: Non healing right ankle ulcer History of Wound: Ms. Lam is a 62-year-old who was referred to this facility due to nonhealing right lateral ankle ulcer. Noted a year ago, started out as a bullae and subsequently opened up. She states that over the years, she has had alginate and collagen dressings done at her facility without any significant improvement. History of diabetes mellitus, she is not sure of her most recent A1c but states that it has ranged from 8-13. Also history of tobacco use, smokes daily. There is significant pain around the ulcer but she denies otherwise significant leg pain. Does not wear compression. Sleep sedentary but sleeps in the bed. She feels well otherwise, no chills, fever, nausea, vomiting or change in bowel habit reported. Progress of Wound: Overall stable. No new concerns reported at this time. Objective Data Objective Data Vital Signs: Vital Signs Temp Pulse Resp BP O2 Del Method 96.5 F L 64 16 135/66 H Room Air 05/02/23 09:16 05/02/23 09:16 05/02/23 09:16 05/02/23 09:16 05/02/23 09:16 Oxygen Delivery Method Room Air Charges/Coding Procedures Integumentary 111xxx-113xx: [id number] Carla subq tissue 20 sq cm/< Physical Exam Const alert, oriented x3 and no apparent distress General Appearance: cooperative, comfortable and well kempt HEENT normocephalic and head/scalp atraumatic Eyes EOMs intact bilaterally General Eye: normal appearance of both eyes Neck full ROM and supple General: normal visual inspection Resp normal respiratory effort Effort and Inspection: able to speak in complete sentences Extremity General Extremity: edema Skin Wounds: wounds noted Neuro oriented x3, CN's II-XII intact bilaterally and moves all extremities Psych mental status grossly normal, thought process normal, cooperative and affect normal Debridement Note Debridement Note Wound debrided: Right lateral foot/ankle Type of Debridement: Excisional debridement Anesthesia Used: 5% Lidocaine Gel Depth: Down to and including healthy tissue and in the subcutaneous layer Percentage of wound debrided: 100 Instrument Used: 5mm curette Tissue Removed: Slough and devitalized tissue Severity: Fat Layer Exposed Amount of bleeding with debridement: Mild Bleeding Controlled with: Pressure Patient tolerated procedure: Patient tolerated procedure well Post-Debridement Measurements and Additional Note: Post-Debridement Measurements/Treatment WC - Nurse 1 - General Ulcer Assessment Start: 04/18/23 09:24 Freq: Status: Active Protocol: CLOVIS Activity Type Activity Date Activity User E-sign Co-sign Detail Recorded Client Recorded Date Recorded By Document 04/18/23 09:24 RB Desktop 04/18/23 09:26 RB Document 04/25/23 08:57 BMF Desktop 04/25/23 09:02 BMF Document 05/02/23 09:16 BMF Desktop 05/02/23 09:21 BMF 04/18/23 04/25/23 05/02/23 09:24 08:57 09:16 WC - Today's Visit Information Type of service Follow-up Visit Follow-up Visit Follow-up Visit (Physician/[employer]ECT[facility] [place] (Physician/[employer] [place] (Physician/[employer] [place] ) ) ) Arrival Mode Wheelchair Wheelchair Wheelchair Transfer Assistance None None None Patient Identification Verified (Name & Yes Yes Yes ) Patient Requires Transmission-Based No No No Precautions Vital Signs Temperature (97.8 F-99.1 F) 96 F L 96.5 F L 96.5 F L Temperature Source Temporal Temporal Temporal Pulse Rate (60-100) 73 74 64 Pulse Location Monitor Monitor Monitor Respiratory Rate (12-18) 18 16 16 Respiratory rate source Observation Observation Observation Oxygen Delivery Method Room Air Room Air Blood Pressure (90/60-120/80) 124/57 H 95/51 L 135/66 H Blood Pressure Mean (mm Hg) 79 65 89 Source Monitor Monitor Monitor Position Semi-Fowlers Sitting Sitting Blood Pressure Location Left Arm Right Arm Right Arm Comment rechk bp left arm 95/50. pt denies sx History Since Last Visit- (Skip if this is Patient's initial visit) Have you changed medications since your No No No last visit? Any new allergies or adverse reactions No No No Had a fall/change in ADL's that may No No No increase risk of falls Signs or symptoms of abuse and/or No No No neglect since last visit Have you been in the hospital since your No No No last visit? Has dressing in place as prescribed Yes Yes Yes Has compression in place as prescribed Yes Yes Yes Has offloadiing in place as prescribed No N/A N/A Experienced any changes in pain level or No No No management Left Footwear Regular Shoe Regular Shoe Right Footwear Regular Shoe Regular Shoe Pain Scale: 0-10 Numeric Is Patient Pain Free? Yes Yes Yes WC - Nurse 1 - General Ulcer Measurement Start: 04/18/23 09:24 Freq: Status: Active Protocol: Activity Type Activity Date Activity User E-sign Co-sign Detail Recorded Client Recorded Date Recorded By Document 04/18/23 09:24 RB Desktop 04/18/23 09:26 RB Document 04/25/23 08:57 BMF Desktop 04/25/23 09:02 BMF Document 05/02/23 09:16 BMF Desktop 05/02/23 09:21 BMF 04/18/23 04/25/23 05/02/23 09:24 08:57 09:16 Wound Center Nurse 1 #1 R Lat Ankle -Combined with other wound No No No -Current Size (cm) - Length 1.7 1.7 1.4 -Current Size (cm) - Width 1.1 1.1 0.9 -Current Size (cm) - Depth 0.2 0.3 0.2 -Total Square Cm 1.87 1.87 1.26 -Photo Taken No No -Epithelialization None Present None Present -Tunneling No No No -Undermining/Tunneling No No No -Circular Undermining No No No -Exudate Amt Medium Medium Medium -Exudate Type Serosanguineous Serosanguineous Serosanguineous -Wound Margin Distinct, Distinct, Thickened Outline Outline Attached Attached -Granulation Amt Medium (34-66%) Small (1-33%) None Present (0 %) -Granulation Quality [place] Red -Slough/Fibrin Yes Yes Yes -Necrosis Amt Medium (34-66%) Large (67-100%) Large (67-100%) -Necrotic Tissue Type Adherent Slough Adherent Slough Adherent Slough -Structure Exposed N/A -Texture (Lori-wound Skin Appearance) Assessed Assessed, Assessed, Scarring Scarring -Moisture (Lori-wound Skin Appearance) Assessed Assessed Assessed,Dry/ Scaly -Color (Lori-wound Skin Appearance) Assessed Assessed Assessed -Temperature (Lori-wound Skin No Abnormality No Abnormality No Abnormality Appearance) (Pt Warm) (Pt Warm) (Pt Warm) -Tenderness on Palpation (Lori-wound No No No Skin Appearance) -Ulcer Cleansing Wound Cleanser Rinsed/ Rinsed/ Irrigated with Irrigated with Saline Saline -Foul Odor after Cleansing No No No -Anesthetic Used 5% Lidocaine 5% Lidocaine 5% Lidocaine Gel Gel Gel Lower Limb Edema Present Yes Right Calf (cm) 36.4 34.8 Right Ankle (cm) 22.7 21.7 WC - Nurse 2 - General Ulcer CM Notes Start: 04/18/23 09:24 Freq: Status: Active Protocol: Activity Type Activity Date Activity User E-sign Co-sign Detail Recorded Client Recorded Date Recorded By Document 04/18/23 09:38 Desktop 04/18/23 09:43 GM Document 04/25/23 09:32 GM Desktop 04/25/23 09:36 GM Document 05/02/23 09:31 Laptop 05/02/23 09:33 04/18/23 04/25/23 05/02/23 09:38 09:32 09:31 Wound Center Nurse 2 #1 R Lat Ankle -Time 09:38 09:32 09:31 -Correct Patient Yes Yes Yes -Correct Side, Site, Position Yes Yes Yes -Correct Procedure Yes Yes Yes -Procedure Performed Yes Yes Yes -Type of Procedure Debridement Debridement Debridement -Clinical Debridement Subcutaneous Subcutaneous Subcutaneous -Tissue Removed Subcutaneous Subcutaneous Subcutaneous -Post Debridement (cm) - Length 1.5 1.3 1.3 -Post Debridement (cm) - Width 1.0 1 0.9 -Post Debridement (cm) - Depth 0.2 0.1 0.2 -Total Square (Post) (cm) 1.50 1.3 1.17 -Area of Debridement (cm) - Length 1.5 1.3 1.3 -Area of Debridement (cm) - Width 1.0 1 0.9 -Total Square (Area) (cm) 1.50 1.3 1.17 -Tunneling No No No -Undermining/Tunneling No No No -Circular Undermining No No No -Wound/Ulcer Outcome Not Healed Not Healed Not Healed -Ulcer Cleansing Rinsed/ Rinsed/ Rinsed/ Irrigated with Irrigated with Irrigated with Saline Saline Saline -Foul Odor after Cleansing No No No -Bioengineered Tissue No No -Bleeding Controlled with Pressure Pressure Pressure,Silver Nitrate -Treatment Response Procedure Procedure Procedure Tolerated Well Tolerated Well Tolerated Well -Offloading No -Debridement - Subq, 1st 20sq cm Yes Yes Yes Pain Scale: 0-10 Numeric Is Patient Pain Free? Yes Yes Yes - Nurse 3 - General Ulcer D/C NN Start: 04/18/23 09:24 Freq: Status: Active Protocol: Activity Type Activity Date Activity User E-sign Co-sign Detail Recorded Client Recorded Date Recorded By Document 04/18/23 09:50 Laptop 04/18/23 09:50 Document 04/25/23 09:41 [facility] Desktop 04/25/23 09:42 [facility] Document 05/02/23 09:44 [facility] Desktop 05/02/23 09:45 [facility] 04/18/23 04/25/23 05/02/23 09:50 09:41 09:44 Wound Care Center Nurse 3 #1 R Lat Ankle -Ulcer Cleansing Rinsed/ Rinsed/ Rinsed/ Irrigated with Irrigated with Irrigated with Saline Saline Saline -Foul Odor after Cleansing No No No -Primary Dressing Applied Aquacel Extra, Aquacel Extra, Aquacel Extra, Mepilex Border Mepilex Border Mepilex Border -Other Dressing bactroban bactroban -Aquacel Extra 1 1 1 -Mepilex Border 1 1 1 Right -Tubular Bandage Double Layer Double Layer Double Layer -Size of Tubigrip Used Size D Size D Size D -Size D ($) 2 2 2 Treatment Response Procedure Procedure Tolerated Well Tolerated Well Pain Scale: 0-10 Numeric Is Patient Pain Free? Yes Yes Yes - Visit Discharge Discharge Condition Stable Stable Stable Ambulatory Status Wheelchair Wheelchair Wheelchair Transportation Private Auto [place] Accompanied by CT transport Medication Reconcilliation completed & Yes provided to patient/care provider Clinical Summary of Care Provided Yes Facility Type Longterm Care [facility] Facility Facility Assessment/Plan Assessment/Plan (1) 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: CODE(S): L97.312 - Non-pressure chronic ulcer of right ankle with fat layer exposed (2) Insulin dependent diabetes mellitus: (3) Tobacco abuse: CODE(S): Z72.0 - Tobacco use PLAN: Plan Debridement done as documented above, procedure was well-tolerated. Some improvement noted. Continue Aquacel extra, Mupirocin and foam dressing. Change daily. Double layer Tubigrip for edema management. Optimal protein intake. Continue other chronic wound care management and off loading. Her questions were answered and she was advised to call with any further questions or concerns. Follow up in 2 weeks. This note was generated with [employer]osmos[employer] software. It may contain incorrect words, spelling, and punctuation that were not noted in checking the note before signing.
== END 2023-05-14 23:59 | disposition home or self-care (01) ==
LOC: WC 09:15
PROVIDERS: PCP Internal Medicine; Referring Provider Internal Medicine; Visit Provider Internal Medicine
DX: L97.312 Non-pressure chronic ulcer of right ankle with fat layer exposed (principal); Z72.0 Tobacco use
CPT/HCPCS: 11042

== ENCOUNTER 2023-06-13 10:00 | Outpatient (RCR) | payer MEDICARE, MEDICAID, SELFPAY ==
[2023-05-15 00:46] VITALS: BP 135/66; PULSE 64; RESP 16; TEMP 35.8
[2023-05-16 09:08] VITALS: BP 133/64; PULSE 74; RESP 18; TEMP 35.7
--- NOTE | 2023-05-16 09:30 | PCM.WC.PN ---
History of Present Illness Date of Service: 05/16/23 Chief Complaint: Non healing right ankle ulcer History of Wound: Ms. Lam is a 62-year-old who was referred to this facility due to nonhealing right lateral ankle ulcer. Noted a year ago, started out as a bullae and subsequently opened up. She states that over the years, she has had alginate and collagen dressings done at her facility without any significant improvement. History of diabetes mellitus, she is not sure of her most recent A1c but states that it has ranged from 8-13. Also history of tobacco use, smokes daily. There is significant pain around the ulcer but she denies otherwise significant leg pain. Does not wear compression. Mostly sedentary but sleeps in the bed. She feels well otherwise, no chills, fever, nausea, vomiting or change in bowel habit reported. Progress of Wound: Presents with more lower extremity edema today. Otherwise, no acute concerns. Objective Data Objective Data Vital Signs: Vital Signs Temp Pulse Resp BP 96.2 F L 74 18 133/64 H 05/16/23 09:08 05/16/23 09:08 05/16/23 09:08 05/16/23 09:08 Charges/Coding Procedures Integumentary 111xxx-113xx: 33173 Carla subq tissue 20 sq cm/< Physical Exam Const alert, oriented x3 and no apparent distress General Appearance: cooperative, comfortable and well kempt HEENT normocephalic and head/scalp atraumatic Eyes EOMs intact bilaterally General Eye: normal appearance of both eyes Neck full ROM and supple General: normal visual inspection Resp normal respiratory effort Effort and Inspection: able to speak in complete sentences Extremity General Extremity: edema Skin Wounds: wounds noted Neuro oriented x3, CN's II-XII intact bilaterally and moves all extremities Psych mental status grossly normal, thought process normal, cooperative and affect normal Debridement Note Debridement Note Wound debrided: Right lateral foot/ankle Type of Debridement: Excisional debridement Anesthesia Used: 5% Lidocaine Gel Depth: Down to and including healthy tissue and in the subcutaneous layer Percentage of wound debrided: 100 Instrument Used: 5mm curette Tissue Removed: Slough and devitalized tissue Severity: Fat Layer Exposed Amount of bleeding with debridement: Mild Bleeding Controlled with: Pressure Patient tolerated procedure: Patient tolerated procedure well Post-Debridement Measurements and Additional Note: Post-Debridement Measurements/Treatment WC - Nurse 1 - General Ulcer Assessment Start: 05/16/23 09:08 Freq: Status: Active Protocol: CLOVIS Activity Type Activity Date Activity User E-sign Co-sign Detail Recorded Client Recorded Date Recorded By Document 05/16/23 09:08 Laptop 05/16/23 09:15 JANICE 05/16/23 09:08 - Today's Visit Information Type of service Follow-up 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 ) Arrival Mode Wheelchair Patient Identification Verified (Name & Yes ) Patient Requires Transmission-Based No Precautions Finger Stick Blood Sugar(mg/dl) (if 239 indicated): Blood Sugar Stated by Patient Vital Signs Temperature (97.8 F-99.1 F) 96.2 F L Temperature Source Temporal Pulse Rate (60-100) 74 Pulse Location Monitor Respiratory Rate (12-18) 18 Respiratory rate source Observation Blood Pressure (90/60-120/80) 133/64 H Blood Pressure Mean (mm Hg) 87 Source Monitor Position Semi-Fowlers Blood Pressure Location Left Arm History Since Last Visit- (Skip if this is Patient's initial visit) Have you changed medications since your No last visit? Any new allergies or adverse reactions No Had a fall/change in ADL's that may No increase risk of falls Signs or symptoms of abuse and/or No neglect since last visit Have you been in the hospital since your No last visit? Has dressing in place as prescribed Yes Has compression in place as prescribed Yes Has offloadiing in place as prescribed Yes Experienced any changes in pain level or No management Left Footwear Regular Shoe Right Footwear Regular Shoe Pain Scale: 0-10 Numeric Is Patient Pain Free? Yes - Nurse 1 - General Ulcer Measurement Start: 05/16/23 09:08 Freq: Status: Active Protocol: Activity Type Activity Date Activity User E-sign Co-sign Detail Recorded Client Recorded Date Recorded By Document 05/16/23 09:08 JANICE Laptop 05/16/23 09:15 JANICE 05/16/23 09:08 Wound Center Nurse 1 #1 R Lat Ankle -Combined with other wound No -Current Size (cm) - Length 1.3 -Current Size (cm) - Width 0.8 -Current Size (cm) - Depth 0.3 -Total Square Cm 1.04 -Photo Taken No -Epithelialization Small 1-33% -Tunneling No -Undermining/Tunneling No -Circular Undermining No -Exudate Amt Small -Exudate Type Serosanguineous -Wound Margin Flat & Intact -Granulation Amt Medium (34-66%) -Granulation Quality Red -Slough/Fibrin Yes -Necrosis Amt Small (1-33%) -Necrotic Tissue Type Adherent Slough -Structure Exposed N/A -Texture (Lori-wound Skin Appearance) Assessed, Localized Edema -Moisture (Lori-wound Skin Appearance) Assessed,Dry/ Scaly -Color (Lori-wound Skin Appearance) Assessed -Temperature (Lori-wound Skin No Abnormality Appearance) (Pt Warm) -Tenderness on Palpation (Lori-wound No Skin Appearance) -Ulcer Cleansing Rinsed/ Irrigated with Saline -Foul Odor after Cleansing No -Anesthetic Used 5% Lidocaine Gel Lower Limb Edema Present Yes Right Calf (cm) 35.5 Right Ankle (cm) 24.5 WC - Nurse 2 - General Ulcer CM Notes Start: 05/16/23 09:08 Freq: Status: Active Protocol: Activity Type Activity Date Activity User E-sign Co-sign Detail Recorded Client Recorded Date Recorded By Document 05/16/23 09:25 GM Desktop 05/16/23 09:30 GM 05/16/23 09:25 Wound Center Nurse 2 #1 R Lat Ankle -Time 09:25 -Correct Patient Yes -Correct Side, Site, Position Yes -Correct Procedure Yes -Procedure Performed Yes -Type of Procedure Debridement -Clinical Debridement Subcutaneous -Tissue Removed Subcutaneous -Post Debridement (cm) - Length 1.2 -Post Debridement (cm) - Width 1 -Post Debridement (cm) - Depth 0.2 -Total Square (Post) (cm) 1.2 -Area of Debridement (cm) - Length 1.2 -Area of Debridement (cm) - Width 1.0 -Total Square (Area) (cm) 1.20 -Tunneling No -Undermining/Tunneling No -Circular Undermining No -Wound/Ulcer Outcome Not Healed -Ulcer Cleansing Rinsed/ Irrigated with Saline -Foul Odor after Cleansing No -Bleeding Controlled with Pressure -Treatment Response Procedure Tolerated Well -Debridement - Subq, 1st 20sq cm Yes Pain Scale: 0-10 Numeric Is Patient Pain Free? Yes Assessment/Plan Assessment/Plan (1) 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: CODE(S): L97.312 - Non-pressure chronic ulcer of right ankle with fat layer exposed (2) Insulin dependent diabetes mellitus: (3) Tobacco abuse: CODE(S): Z72.0 - Tobacco use PLAN: Plan Debridement done as documented above, procedure was well-tolerated. Minimal improvement but increased lower extremity swelling. Continue Aquacel extra, Mupirocin and foam dressing. Switch to 3M for edema management. Change on Saturday and Saturday at Facility. Optimal protein intake. Continue other chronic wound care management and off loading. Her questions were answered and she was advised to call with any further questions or concerns. Follow up in 1 week. This note was generated with [employer] dictation software. It may contain incorrect words, spelling, and punctuation that were not noted in checking the note before signing.
[2023-05-23 09:50] VITALS: BP 129/76; PULSE 85; RESP 16; TEMP 35.5
--- NOTE | 2023-05-23 10:21 | PN.PCM_ITS ---
History of Present Illness Date of Service: 05/23/23 Chief Complaint: Non healing right ankle ulcer History of Wound: Ms. Lam is a 62-year-old who was referred to this facility due to nonhealing right lateral ankle ulcer. Noted a year ago, started out as a bullae and subsequently opened up. She states that over the years, she has had alginate and collagen dressings done at her facility without any significant improvement. History of diabetes mellitus, she is not sure of her most recent A1c but states that it has ranged from 8-13. Also history of tobacco use, smokes daily. There is significant pain around the ulcer but she denies otherwise significant leg pain. Does not wear compression. Mostly sedentary but sleeps in the bed. She feels well otherwise, no chills, fever, nausea, vomiting or change in bowel habit reported. Progress of Wound: No new concerns at this time. Edema did improve with 3M compression. Objective Data Objective Data Vital Signs: Vital Signs Temp Pulse Resp BP O2 Del Method 96 F L 85 16 129/76 H Room Air 05/23/23 09:50 05/23/23 09:50 05/23/23 09:50 05/23/23 09:50 05/23/23 09:50 Oxygen Delivery Method Room Air Charges/Coding Procedures Integumentary 111xxx-113xx: 63998 Carla subq tissue 20 sq cm/< Physical Exam Const alert, oriented x3 and no apparent distress General Appearance: cooperative, comfortable and well kempt HEENT normocephalic and head/scalp atraumatic Eyes EOMs intact bilaterally General Eye: normal appearance of both eyes Neck full ROM and supple General: normal visual inspection Resp normal respiratory effort Effort and Inspection: able to speak in complete sentences Extremity General Extremity: edema Skin Wounds: wounds noted Neuro oriented x3, CN's II-XII intact bilaterally and moves all extremities Psych mental status grossly normal, thought process normal, cooperative and affect normal Debridement Note Debridement Note Wound debrided: Right lateral foot/ankle Type of Debridement: Excisional debridement Anesthesia Used: 5% Lidocaine Gel Depth: Down to and including healthy tissue and in the subcutaneous layer Percentage of wound debrided: 100 Instrument Used: 5mm curette Tissue Removed: Slough and devitalized tissue Severity: Fat Layer Exposed Amount of bleeding with debridement: Mild Bleeding Controlled with: Pressure Patient tolerated procedure: Patient tolerated procedure well Post-Debridement Measurements and Additional Note: Post-Debridement Measurements/Treatment RUY - Nurse 1 - General Ulcer Assessment Start: 05/16/23 09:08 Freq: Status: Active Protocol: CLOVIS Activity Type Activity Date Activity User E-sign Co-sign Detail Recorded Client Recorded Date Recorded By Document 05/16/23 09:08 Laptop 05/16/23 09:15 JF Document 05/23/23 09:50 BM Desktop 05/23/23 09:56 BM 05/16/23 05/23/23 09:08 09:50 WC - Today's Visit Information Type of service Follow-up Visit Follow-up Visit (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 (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 ) ) Arrival Mode Wheelchair Wheelchair Transfer Assistance None Patient Identification Verified (Name & Yes Yes ) Patient Requires Transmission-Based No No Precautions Finger Stick Blood Sugar(mg/dl) (if 239 indicated): Blood Sugar Stated by Patient Vital Signs Temperature (97.8 F-99.1 F) 96.2 F L 96 F L Temperature Source Temporal Temporal Pulse Rate (60-100) 74 85 Pulse Location Monitor Monitor Respiratory Rate (12-18) 18 16 Respiratory rate source Observation Observation Oxygen Delivery Method Room Air Blood Pressure (90/60-120/80) 133/64 H 129/76 H Blood Pressure Mean (mm Hg) 87 93 Source Monitor Monitor Position Semi-Fowlers Sitting Blood Pressure Location Left Arm Right Arm History Since Last Visit- (Skip if this is Patient's initial visit) Have you changed medications since your No No last visit? Any new allergies or adverse reactions No No Had a fall/change in ADL's that may No No increase risk of falls Signs or symptoms of abuse and/or No No neglect since last visit Have you been in the hospital since your No No last visit? Has dressing in place as prescribed Yes Yes Has compression in place as prescribed Yes No Has offloadiing in place as prescribed Yes N/A Experienced any changes in pain level or No No management Left Footwear Regular Shoe Regular Shoe Right Footwear Regular Shoe Regular Shoe Pain Scale: 0-10 Numeric Is Patient Pain Free? Yes Yes RUY Nath Nurse 1 - General Ulcer Measurement Start: 05/16/23 09:08 Freq: Status: Active Protocol: Activity Type Activity Date Activity User E-sign Co-sign Detail Recorded Client Recorded Date Recorded By Document 05/16/23 09:08 Laptop 05/16/23 09:15 Document 05/23/23 09:50 [facility] Desktop 05/23/23 09:56 [facility] 05/16/23 05/23/23 09:08 09:50 Wound Center Nurse 1 #1 R Lat Ankle -Combined with other wound No No -Current Size (cm) - Length 1.3 2 -Current Size (cm) - Width 0.8 1.3 -Current Size (cm) - Depth 0.3 0.5 -Total Square Cm 1.04 2.6 -Photo Taken No No -Epithelialization Small 1-33% -Tunneling No No -Undermining/Tunneling No No -Circular Undermining No No -Exudate Amt Small Medium -Exudate Type Serosanguineous Serosanguineous -Wound Margin Flat & Intact Distinct, Outline Attached -Granulation Amt Medium (34-66%) Large (67-100%) -Granulation Quality Red Red -Slough/Fibrin Yes No -Necrosis Amt Small (1-33%) None Present (0 %) -Necrotic Tissue Type Adherent Slough -Structure Exposed N/A -Texture (Lori-wound Skin Appearance) Assessed, Assessed, Localized Edema Scarring -Moisture (Lori-wound Skin Appearance) Assessed,Dry/ Assessed, Scaly Maceration,Dry/ Scaly -Color (Lori-wound Skin Appearance) Assessed Assessed -Temperature (Lori-wound Skin No Abnormality No Abnormality Appearance) (Pt Warm) (Pt Warm) -Tenderness on Palpation (Lori-wound No No Skin Appearance) -Ulcer Cleansing Rinsed/ Rinsed/ Irrigated with Irrigated with Saline Saline -Foul Odor after Cleansing No No -Anesthetic Used 5% Lidocaine 5% Lidocaine Gel Gel Lower Limb Edema Present Yes Yes Right Calf (cm) 35.5 30.5 Right Ankle (cm) 24.5 18 WC - Nurse 2 - General Ulcer CM Notes Start: 05/16/23 09:08 Freq: Status: Active Protocol: Activity Type Activity Date Activity User E-sign Co-sign Detail Recorded Client Recorded Date Recorded By Document 05/16/23 09:25 Desktop 05/16/23 09:30 Document 05/23/23 10:16 Desktop 05/23/23 10:21 05/16/23 05/23/23 09:25 10:16 Wound Center Nurse 2 #1 R Lat Ankle -Time : 10:17 -Correct Patient Yes Yes -Correct Side, Site, Position Yes Yes -Correct Procedure Yes Yes -Procedure Performed Yes Yes -Type of Procedure Debridement Debridement -Clinical Debridement Subcutaneous Subcutaneous -Tissue Removed Subcutaneous Subcutaneous -Post Debridement (cm) - Length 1.2 -Post Debridement (cm) - Width 1 1.3 -Post Debridement (cm) - Depth 0.2 0.9 -Total Square (Post) (cm) 1.2 -Area of Debridement (cm) - Length 1.2 -Area of Debridement (cm) - Width 1.0 -Total Square (Area) (cm) 1.20 -Tunneling No No -Undermining/Tunneling No No -Circular Undermining No No -Wound/Ulcer Outcome Not Healed Not Healed -Ulcer Cleansing Rinsed/ Rinsed/ Irrigated with Irrigated with Saline Saline -Foul Odor after Cleansing No -Bioengineered Tissue No -Bleeding Controlled with Pressure Pressure -Treatment Response Procedure Procedure Tolerated Well Tolerated Well -Assistive Device(s) Wheelchair -Debridement - Subq, 1st 20sq cm Yes Yes Pain Scale: 0-10 Numeric Is Patient Pain Free? Yes Yes - Nurse 3 - General Ulcer D/C NN Start: 05/16/23 09:08 Freq: Status: Active Protocol: Activity Type Activity Date Activity User E-sign Co-sign Detail Recorded Client Recorded Date Recorded By Document 05/16/23 09:38 KW Desktop 05/16/23 09:39 KW 05/16/23 09:38 Wound Care Center Nurse 3 #1 R Lat Ankle -Primary Dressing Applied Aquacel AG 4x4, Mepilex Border -Aquacel AG 4x4 1 -Mepilex Border 1 Right -Multi-Layered Wrap Application Multi-Layer Comp - Right ($ ) Pain Scale: 0-10 Numeric Is Patient Pain Free? Yes WC - Visit Discharge Discharge Condition Stable Ambulatory Status Wheelchair Transportation yossi nicholas Medication Reconcilliation completed & No provided to patient/care provider Clinical Summary of Care Provided Yes Assessment/Plan Assessment/Plan (1) 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: CODE(S): L97.312 - Non-pressure chronic ulcer of right ankle with fat layer exposed (2) Insulin dependent diabetes mellitus: (3) Tobacco abuse: CODE(S): Z72.0 - Tobacco use PLAN: Plan Debridement done as documented above, procedure was well-tolerated. Continue Aquacel extra, Mupirocin and foam dressing. Continue 3M for edema management. Change on Saturday and Saturday at Facility. Optimal protein intake. Continue other chronic wound care management and off loading. Her questions were answered and she was advised to call with any further questions or concerns. Follow up in 1 week. This note was generated with [employer] dictation software. It may contain incorrect words, spelling, and punctuation that were not noted in checking the note before signing.
[2023-05-30 09:16] VITALS: BP 124/60; PULSE 67; RESP 18; TEMP 35.8
--- NOTE | 2023-05-30 10:13 | PCM.WC.PN ---
History of Present Illness Date of Service: 05/30/23 Chief Complaint: Non healing right ankle ulcer History of Wound: Ms. Lam is a 62-year-old who was referred to this facility due to nonhealing right lateral ankle ulcer. Noted a year ago, started out as a bullae and subsequently opened up. She states that over the years, she has had alginate and collagen dressings done at her facility without any significant improvement. History of diabetes mellitus, she is not sure of her most recent A1c but states that it has ranged from 8-13. Also history of tobacco use, smokes daily. There is significant pain around the ulcer but she denies otherwise significant leg pain. Does not wear compression. Mostly sedentary but sleeps in the bed. She feels well otherwise, no chills, fever, nausea, vomiting or change in bowel habit reported. Progress of Wound: No new concerns at this time. Has been tolerating the 3M wraps well with significant improvement in edema. No significant change in ulcer size. Objective Data Objective Data Vital Signs: Vital Signs Temp Pulse Resp BP O2 Del Method 96.5 F L 67 18 124/60 H Room Air 05/30/23 09:16 05/30/23 09:16 05/30/23 09:16 05/30/23 09:16 05/23/23 09:50 Oxygen Delivery Method Room Air Charges/Coding Procedures Integumentary [id number]: [id number] Carla subq tissue 20 sq cm/< Physical Exam Const alert, oriented x3 and no apparent distress General Appearance: cooperative, comfortable and well kempt HEENT normocephalic and head/scalp atraumatic Eyes EOMs intact bilaterally General Eye: normal appearance of both eyes Neck full ROM and supple General: normal visual inspection Resp normal respiratory effort Effort and Inspection: able to speak in complete sentences Extremity General Extremity: edema Skin Wounds: wounds noted Neuro oriented x3, CN's II-XII intact bilaterally and moves all extremities Psych mental status grossly normal, thought process normal, cooperative and affect normal Debridement Note Debridement Note Wound debrided: Right lateral foot/ankle Type of Debridement: Excisional debridement Anesthesia Used: 5% Lidocaine Gel Depth: Down to and including healthy tissue and in the subcutaneous layer Percentage of wound debrided: 100 Instrument Used: 5mm curette Tissue Removed: Slough and devitalized tissue Severity: Fat Layer Exposed Amount of bleeding with debridement: Mild Bleeding Controlled with: Pressure Patient tolerated procedure: Patient tolerated procedure well Post-Debridement Measurements and Additional Note: Post-Debridement Measurements/Treatment - Nurse 1 - General Ulcer Assessment Start: 05/16/23 09:08 Freq: Status: Active Protocol: CLOVIS Activity Type Activity Date Activity User E-sign Co-sign Detail Recorded Client Recorded Date Recorded By Document 05/16/23 09:08 JF Laptop 05/16/23 09:15 JF Document 05/23/23 09:50 BMF Desktop 05/23/23 09:56 BMF Document 05/30/23 09:16 DL Desktop 05/30/23 09:30 DL 05/16/23 05/23/23 05/30/23 09:08 09:50 09:16 - Today's Visit Information Type of service Follow-up Visit Follow-up Visit Follow-up Visit (Physician/TESTING AND REGULATING CHIEF (Physician/TESTING AND REGULATING CHIEF (Physician/TESTING AND REGULATING CHIEF ) ) ) Arrival Mode Wheelchair Wheelchair Wheelchair Transfer Assistance None None Patient Identification Verified (Name & Yes Yes Yes ) Patient Requires Transmission-Based No No No Precautions Finger Stick Blood Sugar(mg/dl) (if 239 71 indicated): Blood Sugar Stated by Stated by Patient Patient Vital Signs Temperature (97.8 F-99.1 F) 96.2 F L 96 F L 96.5 F L Temperature Source Temporal Temporal Temporal Pulse Rate (60-100) 74 85 67 Pulse Location Monitor Monitor Monitor Respiratory Rate (12-18) 18 16 18 Respiratory rate source Observation Observation Observation Oxygen Delivery Method Room Air Blood Pressure (90/60-120/80) 133/64 H 129/76 H 124/60 H Blood Pressure Mean (mm Hg) 87 93 81 Source Monitor Monitor Monitor Position Semi-Fowlers Sitting Blood Pressure Location Left Arm Right Arm History Since Last Visit- (Skip if this is Patient's initial visit) Have you changed medications since your No No No last visit? Any new allergies or adverse reactions No No No Had a fall/change in ADL's that may No No No increase risk of falls Signs or symptoms of abuse and/or No No No neglect since last visit Have you been in the hospital since your No No No last visit? Has dressing in place as prescribed Yes Yes Yes Has compression in place as prescribed Yes No Yes Has offloadiing in place as prescribed Yes N/A N/A Experienced any changes in pain level or No No Yes management Left Footwear Regular Shoe Regular Shoe Right Footwear Regular Shoe Regular Shoe Pain Scale: 0-10 Numeric Is Patient Pain Free? Yes Yes Yes WC - Nurse 1 - General Ulcer Measurement Start: 05/16/23 09:08 Freq: Status: Active Protocol: Activity Type Activity Date Activity User E-sign Co-sign Detail Recorded Client Recorded Date Recorded By Document 05/16/23 09:08 JF Laptop 05/16/23 09:15 JF Document 05/23/23 09:50 BMF Desktop 05/23/23 09:56 BMF Document 05/30/23 09:16 DL Desktop 05/30/23 09:30 DL 05/16/23 05/23/23 05/30/23 09:08 09:50 09:16 Wound Center Nurse 1 #1 R Lat Ankle -Combined with other wound No No -Current Size (cm) - Length 1.3 2 1.4 -Current Size (cm) - Width 0.8 1.3 0.9 -Current Size (cm) - Depth 0.3 0.5 0.2 -Total Square Cm 1.04 2.6 1.26 -Photo Taken No No -Epithelialization Small 1-33% -Tunneling No No -Tunneling Position (O'clock) 3 -Tunneling Distance (cm) 5 -Tunneling Distance #2 (cm) 0.2 -Undermining/Tunneling No No -Circular Undermining No No -Exudate Amt Small Medium Medium -Exudate Type Serosanguineous Serosanguineous Serosanguineous -Wound Margin Flat & Intact Distinct, Distinct, Outline Outline Attached Attached -Granulation Amt Medium (34-66%) Large (67-100%) Small (1-33%) -Granulation Quality Red Red [place] -Slough/Fibrin Yes No -Necrosis Amt Small (1-33%) None Present (0 Large (67-100%) %) -Necrotic Tissue Type Adherent Slough Adherent Slough -Structure Exposed N/A N/A -Texture (Olri-wound Skin Appearance) Assessed, Assessed, Scarring Localized Edema Scarring -Moisture (Lori-wound Skin Appearance) Assessed,Dry/ Assessed, Maceration Scaly Maceration,Dry/ Scaly -Color (Lori-wound Skin Appearance) Assessed Assessed No Abnormality -Temperature (Lori-wound Skin No Abnormality No Abnormality No Abnormality Appearance) (Pt Warm) (Pt Warm) (Pt Warm) -Tenderness on Palpation (Lori-wound No No No Skin Appearance) -Ulcer Cleansing Rinsed/ Rinsed/ Soap and Water Irrigated with Irrigated with Saline Saline -Foul Odor after Cleansing No No No -Anesthetic Used 5% Lidocaine 5% Lidocaine 5% Lidocaine Gel Gel Gel Lower Limb Edema Present Yes Yes Right Calf (cm) 35.5 30.5 35 Right Ankle (cm) 24.5 18 21 WC - Nurse 2 - General Ulcer CM Notes Start: 05/16/23 09:08 Freq: Status: Active Protocol: Activity Type Activity Date Activity User E-sign Co-sign Detail Recorded Client Recorded Date Recorded By Document 05/16/23 09:25 GM Desktop 05/16/23 09:30 GM Document 05/23/23 10:16 GM Desktop 05/23/23 10:21 GM Document 05/30/23 09:52 DL Desktop 05/30/23 09:57 DL 05/16/23 05/23/23 05/30/23 09:25 10:16 09:52 Wound Center Nurse 2 #1 R Lat Ankle -Time 09:25 10:17 09:52 -Correct Patient Yes Yes Yes -Correct Side, Site, Position Yes Yes Yes -Correct Procedure Yes Yes Yes -Procedure Performed Yes Yes Yes -Type of Procedure Debridement Debridement Debridement -Clinical Debridement Subcutaneous Subcutaneous Subcutaneous -Tissue Removed Subcutaneous Subcutaneous Subcutaneous -Post Debridement (cm) - Length 1.2 1.3 -Post Debridement (cm) - Width 1 1.3 0.9 -Post Debridement (cm) - Depth 0.2 0.9 0.2 -Total Square (Post) (cm) 1.2 1.17 -Area of Debridement (cm) - Length 1.2 1.3 -Area of Debridement (cm) - Width 1.0 0.9 -Total Square (Area) (cm) 1.20 1.17 -Tunneling No No No -Undermining/Tunneling No No No -Circular Undermining No No No -Wound/Ulcer Outcome Not Healed Not Healed Not Healed -Ulcer Cleansing Rinsed/ Rinsed/ Rinsed/ Irrigated with Irrigated with Irrigated with Saline Saline Saline -Foul Odor after Cleansing No No -Bioengineered Tissue No No -Bleeding Controlled with Pressure Pressure Silver Nitrate -Treatment Response Procedure Procedure Procedure Not Tolerated Well Tolerated Well Tolerated Well -Assistive Device(s) Wheelchair -Debridement - Subq, 1st 20sq cm Yes Yes Yes Pain Scale: 0-10 Numeric Is Patient Pain Free? Yes Yes Yes - Nurse 3 - General Ulcer D/C NN Start: 05/16/23 09:08 Freq: Status: Active Protocol: Activity Type Activity Date Activity User E-sign Co-sign Detail Recorded Client Recorded Date Recorded By Document 05/16/23 09:38 KW Desktop 05/16/23 09:39 KW Document 05/23/23 10:36 BMF Desktop 05/23/23 10:37 BMF Edit Result 05/23/23 10:36 BMF (1) [id number] 05/23/23 11:07 BMF Document 05/30/23 10:04 DL Desktop 05/30/23 10:05 DL (1) Right - Multi-Layered Wrap Application Multi-Layer Comp - => Multi-Layer Comp - Right ($) => Bilat ($) - Other => applied to right => only , sent extra => for ecf 05/16/23 05/23/23 05/30/23 09:38 10:36 10:04 Wound Care Center Nurse 3 #1 R Lat Ankle -Ulcer Cleansing Soap and Water -Foul Odor after Cleansing No -Primary Dressing Applied Aquacel AG 4x4, Aquacel Extra, Mepilex Border, Mepilex Border Mepilex Border Promogran -Other Dressing bactroban -Aquacel Extra 1 -Aquacel AG 4x4 1 -Mepilex Border 1 1 1 -Promogran 1 Right -Multi-Layered Wrap Application Multi-Layer Multi-Layer Multi-Layer Comp - Right ($ Comp - Bilat ($ Comp - Right ($ ) ) ) -Other applied to right only , sent extra for ecf Treatment Response Procedure Tolerated Well Pain Scale: 0-10 Numeric Is Patient Pain Free? 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 As above, no significant change. Switch to Promogran. Continue mupirocin and foam dressing. Continue 3M for edema management. Change on Saturday and at facility.. Optimal protein intake. Continue other chronic wound care management and off loading. Her questions were answered and she was advised to call with any further questions or concerns. Follow up in 2 weeks due to the holiday. This note was generated with P21 dictation software. It may contain incorrect words, spelling, and punctuation that were not noted in checking the note before signing.
[2023-06-13 09:52] VITALS: BP 142/62; PULSE 97; RESP 16; TEMP 35.3
--- NOTE | 2023-06-13 10:48 | PN.PCM_ITS ---
History of Present Illness Date of Service: 06/13/23 Chief Complaint: Non healing right ankle ulcer History of Wound: Ms. Lam is a 62-year-old who was referred to this facility due to nonhealing right lateral ankle ulcer. Noted a year ago, started out as a bullae and subsequently opened up. She states that over the years, she has had alginate and collagen dressings done at her facility without any significant improvement. History of diabetes mellitus, she is not sure of her most recent A1c but states that it has ranged from 8-13. Also history of tobacco use, smokes daily. There is significant pain around the ulcer but she denies otherwise significant leg pain. Does not wear compression. Mostly sedentary but sleeps in the bed. She feels well otherwise, no chills, fever, nausea, vomiting or change in bowel habit reported. Progress of Wound: No new concerns at this time. Has been tolerating the 3M wraps well with significant improvement in edema. Some improvement in wound size. Objective Data Objective Data Vital Signs: Vital Signs Temp Pulse Resp BP O2 Del Method 95.6 F L 97 16 142/62 H Room Air 06/13/23 09:52 06/13/23 09:52 06/13/23 09:52 06/13/23 09:52 06/13/23 09:52 Oxygen Delivery Method Room Air Charges/Coding Procedures Integumentary 111xxx-113xx: [id number] Carla subq tissue 20 sq cm/< Physical Exam Const alert, oriented x3 and no apparent distress General Appearance: cooperative, comfortable and well kempt HEENT normocephalic and head/scalp atraumatic Eyes EOMs intact bilaterally General Eye: normal appearance of both eyes Neck full ROM and supple General: normal visual inspection Resp normal respiratory effort Effort and Inspection: able to speak in complete sentences Extremity General Extremity: edema Skin Wounds: wounds noted Neuro oriented x3, CN's II-XII intact bilaterally and moves all extremities Psych mental status grossly normal, thought process normal, cooperative and affect normal Debridement Note Debridement Note Wound debrided: Right lateral foot/ankle Type of Debridement: Excisional debridement Anesthesia Used: 5% Lidocaine Gel Depth: Down to and including healthy tissue and in the subcutaneous layer Percentage of wound debrided: 100 Instrument Used: 5mm curette Tissue Removed: Slough and devitalized tissue Severity: Fat Layer Exposed Amount of bleeding with debridement: Mild Bleeding Controlled with: Pressure Patient tolerated procedure: Patient tolerated procedure well Post-Debridement Measurements and Additional Note: Post-Debridement Measurements/Treatment WC - Nurse 1 - General Ulcer Assessment Start: 05/16/23 09:08 Freq: Status: Active Protocol: CLOVIS Activity Type Activity Date Activity User E-sign Co-sign Detail Recorded Client Recorded Date Recorded By Document 05/16/23 09:08 JF Laptop 05/16/23 09:15 JF Document 05/23/23 09:50 BMF Desktop 05/23/23 09:56 BMF Document 05/30/23 09:16 DL Desktop 05/30/23 09:30 DL Document 06/13/23 09:52 BMF Desktop 06/13/23 09:57 BMF 05/16/23 05/23/23 05/30/23 09:08 09:50 09:16 - Today's Visit Information Type of service Follow-up Visit Follow-up Visit Follow-up Visit (Physician/SHEAR GRINDER OPERATOR (Physician/SHEAR GRINDER OPERATOR (Physician/SHEAR GRINDER OPERATOR ) ) ) Arrival Mode Wheelchair Wheelchair Wheelchair Transfer Assistance None None Patient Identification Verified (Name & Yes Yes Yes ) Patient Requires Transmission-Based No No No Precautions Finger Stick Blood Sugar(mg/dl) (if 239 71 indicated): Blood Sugar Stated by Stated by Patient Patient Vital Signs Temperature (97.8 F-99.1 F) 96.2 F L 96 F L 96.5 F L Temperature Source Temporal Temporal Temporal Pulse Rate (60-100) 74 85 67 Pulse Location Monitor Monitor Monitor Respiratory Rate (12-18) 18 16 18 Respiratory rate source Observation Observation Observation Oxygen Delivery Method Room Air Blood Pressure (90/60-120/80) 133/64 H 129/76 H 124/60 H Blood Pressure Mean (mm Hg) 87 93 81 Source Monitor Monitor Monitor Position Semi-Fowlers Sitting Blood Pressure Location Left Arm Right Arm History Since Last Visit- (Skip if this is Patient's initial visit) Have you changed medications since your No No No last visit? Any new allergies or adverse reactions No No No Had a fall/change in ADL's that may No No No increase risk of falls Signs or symptoms of abuse and/or No No No neglect since last visit Have you been in the hospital since your No No No last visit? Has dressing in place as prescribed Yes Yes Yes Has compression in place as prescribed Yes No Yes Has offloadiing in place as prescribed Yes N/A N/A Experienced any changes in pain level or No No Yes management Left Footwear Regular Shoe Regular Shoe Right Footwear Regular Shoe Regular Shoe Pain Scale: 0-10 Numeric Is Patient Pain Free? Yes Yes Yes 06/13/23 09:52 - Today's Visit Information Type of service Follow-up Visit (Physician/SHEAR GRINDER OPERATOR ) Arrival Mode Wheelchair Transfer Assistance None Patient Identification Verified (Name & Yes ) Patient Requires Transmission-Based No Precautions Finger Stick Blood Sugar(mg/dl) (if indicated): Blood Sugar Vital Signs Temperature (97.8 F-99.1 F) 95.6 F L Temperature Source Temporal Pulse Rate (60-100) 97 Pulse Location Monitor Respiratory Rate (12-18) 16 Respiratory rate source Observation Oxygen Delivery Method Room Air Blood Pressure (90/60-120/80) 142/62 H Blood Pressure Mean (mm Hg) 88 Source Monitor Position Sitting Blood Pressure Location Left Arm History Since Last Visit- (Skip if this is Patient's initial visit) Have you changed medications since your No last visit? Any new allergies or adverse reactions No Had a fall/change in ADL's that may No increase risk of falls Signs or symptoms of abuse and/or No neglect since last visit Have you been in the hospital since your No last visit? Has dressing in place as prescribed Yes Has compression in place as prescribed Yes Has offloadiing in place as prescribed N/A Experienced any changes in pain level or No management Left Footwear Regular Shoe Right Footwear Regular Shoe Pain Scale: 0-10 Numeric Is Patient Pain Free? Yes - Nurse 1 - General Ulcer Measurement Start: 05/16/23 09:08 Freq: Status: Active Protocol: Activity Type Activity Date Activity User E-sign Co-sign Detail Recorded Client Recorded Date Recorded By Document 05/16/23 09:08 JF Laptop 05/16/23 09:15 JF Document 05/23/23 09:50 BMF Desktop 05/23/23 09:56 BMF Document 05/30/23 09:16 DL Desktop 05/30/23 09:30 DL Document 06/13/23 09:52 BMF Desktop 06/13/23 09:57 BMF 11/09/0605/23/23 05/30/23 09:08 09:50 09:16 Wound Center Nurse 1 #1 R Lat Ankle -Combined with other wound No No -Current Size (cm) - Length 1.3 2 1.4 -Current Size (cm) - Width 0.8 1.3 0.9 -Current Size (cm) - Depth 0.3 0.5 0.2 -Total Square Cm 1.04 2.6 1.26 -Photo Taken No No -Epithelialization Small 1-33% -Tunneling No No -Tunneling Position (O'clock) 3 -Tunneling Distance (cm) 5 -Tunneling Distance #2 (cm) 0.2 -Undermining/Tunneling No No -Circular Undermining No No -Exudate Amt Small Medium Medium -Exudate Type Serosanguineous Serosanguineous Serosanguineous -Wound Margin Flat & Intact Distinct, Distinct, Outline Outline Attached Attached -Granulation Amt Medium (34-66%) Large (67-100%) Small (1-33%) -Granulation Quality Red [place] -Slough/Fibrin Yes No -Necrosis Amt Small (1-33%) None Present (0 Large (67-100%) %) -Necrotic Tissue Type Adherent Slough Adherent Slough -Structure Exposed N/A N/A -Texture (Lori-wound Skin Appearance) Assessed, Assessed, Scarring Localized Edema Scarring -Moisture (Lori-wound Skin Appearance) Assessed,Dry/ Assessed, Maceration Scaly Maceration,Dry/ Scaly -Color (Lori-wound Skin Appearance) Assessed Assessed No Abnormality -Temperature (Lori-wound Skin No Abnormality No Abnormality No Abnormality Appearance) (Pt Warm) (Pt Warm) (Pt Warm) -Tenderness on Palpation (Lori-wound No No No Skin Appearance) -Ulcer Cleansing Rinsed/ Rinsed/ Soap and Water Irrigated with Irrigated with Saline Saline -Foul Odor after Cleansing No No No -Anesthetic Used 5% Lidocaine 5% Lidocaine 5% Lidocaine Gel Gel Gel Lower Limb Edema Present Yes Yes Right Calf (cm) 35.5 30.5 35 Right Ankle (cm) 24.5 18 21 06/13/23 09:52 Wound Center Nurse 1 #1 R Lat Ankle -Combined with other wound No -Current Size (cm) - Length 1.1 -Current Size (cm) - Width 0.7 -Current Size (cm) - Depth 0.2 -Total Square Cm 0.77 -Photo Taken No -Epithelialization Small 1-33% -Tunneling No -Tunneling Position (O'clock) -Tunneling Distance (cm) -Tunneling Distance #2 (cm) -Undermining/Tunneling No -Circular Undermining No -Exudate Amt Medium -Exudate Type Serosanguineous -Wound Margin Distinct, Outline Attached -Granulation Amt Medium (34-66%) -Granulation Quality Red -Slough/Fibrin Yes -Necrosis Amt Medium (34-66%) -Necrotic Tissue Type Adherent Slough -Structure Exposed -Texture (Lori-wound Skin Appearance) Assessed, Scarring -Moisture (Lori-wound Skin Appearance) Assessed,Dry/ Scaly -Color (Lori-wound Skin Appearance) Assessed -Temperature (Lori-wound Skin No Abnormality Appearance) (Pt Warm) -Tenderness on Palpation (Lori-wound No Skin Appearance) -Ulcer Cleansing Soap and Water -Foul Odor after Cleansing No -Anesthetic Used 5% Lidocaine Gel Lower Limb Edema Present Yes Right Calf (cm) 35 Right Ankle (cm) 21.2 WC - Nurse 2 - General Ulcer CM Notes Start: 05/16/23 09:08 Freq: Status: Active Protocol: Activity Type Activity Date Activity User E-sign Co-sign Detail Recorded Client Recorded Date Recorded By Document 05/16/23 09:25 Desktop 05/16/23 09:30 Document 05/23/23 10:16 Desktop 05/23/23 10:21 Document 05/30/23 09:52 Desktop 05/30/23 09:57 Document 06/13/23 10:09 Desktop 06/13/23 10:10 05/16/23 05/23/23 05/30/23 09:25 10:16 09:52 Wound Center Nurse 2 #1 R Lat Ankle -Time 09:25 10:17 09:52 -Correct Patient Yes Yes Yes -Correct Side, Site, Position Yes Yes Yes -Correct Procedure Yes Yes Yes -Procedure Performed Yes Yes Yes -Type of Procedure Debridement Debridement Debridement -Clinical Debridement Subcutaneous Subcutaneous Subcutaneous -Tissue Removed Subcutaneous Subcutaneous Subcutaneous -Post Debridement (cm) - Length 1.2 1.3 -Post Debridement (cm) - Width 1 1.3 0.9 -Post Debridement (cm) - Depth 0.2 0.9 0.2 -Total Square (Post) (cm) 1.2 1.17 -Area of Debridement (cm) - Length 1.2 1.3 -Area of Debridement (cm) - Width 1.0 0.9 -Total Square (Area) (cm) 1.20 1.17 -Tunneling No No No -Undermining/Tunneling No No No -Circular Undermining No No No -Wound/Ulcer Outcome Not Healed Not Healed Not Healed -Ulcer Cleansing Rinsed/ Rinsed/ Rinsed/ Irrigated with Irrigated with Irrigated with Saline Saline Saline -Foul Odor after Cleansing No No -Bioengineered Tissue No No -Bleeding Controlled with Pressure Pressure Silver Nitrate -Treatment Response Procedure Procedure Procedure Not Tolerated Well Tolerated Well Tolerated Well -Assistive Device(s) Wheelchair -Debridement - Subq, 1st 20sq cm Yes Yes Yes Pain Scale: 0-10 Numeric Is Patient Pain Free? Yes Yes Yes 06/13/23 10:09 Wound Center Nurse 2 #1 R Lat Ankle -Time 10:09 -Correct Patient Yes -Correct Side, Site, Position Yes -Correct Procedure Yes -Procedure Performed Yes -Type of Procedure Debridement -Clinical Debridement Subcutaneous -Tissue Removed Subcutaneous -Post Debridement (cm) - Length 1.1 -Post Debridement (cm) - Width 1.0 -Post Debridement (cm) - Depth 0.1 -Total Square (Post) (cm) 1.10 -Area of Debridement (cm) - Length 1.1 -Area of Debridement (cm) - Width 1.0 -Total Square (Area) (cm) 1.10 -Tunneling No -Undermining/Tunneling No -Circular Undermining No -Wound/Ulcer Outcome Not Healed -Ulcer Cleansing Rinsed/ Irrigated with Saline -Foul Odor after Cleansing No -Bioengineered Tissue No -Bleeding Controlled with Pressure -Treatment Response Procedure Tolerated Well -Assistive Device(s) -Debridement - Subq, 1st 20sq cm Yes Pain Scale: 0-10 Numeric Is Patient Pain Free? Yes - Nurse 3 - General Ulcer D/C NN Start: 05/16/23 09:08 Freq: Status: Active Protocol: Activity Type Activity Date Activity User E-sign Co-sign Detail Recorded Client Recorded Date Recorded By Document 05/16/23 09:38 KW Desktop 05/16/23 09:39 KW Document 05/23/23 10:36 BMF Desktop 05/23/23 10:37 BMF Edit Result 05/23/23 10:36 BMF (1) [id number] 05/23/23 11:07 BMF Document 05/30/23 10:04 DL Desktop 05/30/23 10:05 DL Document 06/13/23 10:21 BMF Desktop 06/13/23 10:22 BMF (1) Right - Multi-Layered Wrap Application Multi-Layer Comp - => Multi-Layer Comp - Right ($) => Bilat ($) - Other => applied to right => only , sent extra => for ecf 05/16/23 05/23/23 05/30/23 09:38 10:36 10:04 Wound Care Center Nurse 3 #1 R Lat Ankle -Ulcer Cleansing Soap and Water -Foul Odor after Cleansing No -Primary Dressing Applied Aquacel AG 4x4, Aquacel Extra, Mepilex Border, Mepilex Border Mepilex Border Promogran -Other Dressing bactroban -Other Covering -Aquacel Extra 1 -Aquacel AG 4x4 1 -Mepilex Border 1 1 1 -Promogran 1 [place] -Multi-Layered Wrap Application -Other Right -Multi-Layered Wrap Application Multi-Layer Multi-Layer Multi-Layer Comp - Right ($ Comp - Bilat ($ Comp - Right ($ ) ) ) -Other applied to right only , sent extra for ecf Treatment Response Procedure Tolerated Well Pain Scale: 0-10 Numeric Is Patient Pain Free? Yes Yes Yes WC - Visit Discharge Discharge Condition Stable Stable Ambulatory Status Wheelchair Wheelchair Transportation [facility] ecf Medication Reconcilliation completed & No provided to patient/care provider Clinical Summary of Care Provided Yes Facility Type [facility] Facility 06/13/23 10:21 Wound Care Center Nurse 3 #1 R Lat Ankle -Ulcer Cleansing Rinsed/ Irrigated with Saline -Foul Odor after Cleansing No -Primary Dressing Applied Mepilex Border, Promogran -Other Dressing -Other Covering per gm rn -Aquacel Extra -Aquacel AG 4x4 -Mepilex Border 1 -Promogran 0 [place] -Multi-Layered Wrap Application Multi-Layer Comp - Bilat ($ ) -Other only applied to right leg. sent 2 extra for ecf to apply per cm Right -Multi-Layered Wrap Application Multi-Layer Comp - Right ($ ) -Other applied 3m to right only. sent 2 extra for ecf to apply. Treatment Response Pain Scale: 0-10 Numeric Is Patient Pain Free? 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 Some improvement noted since her last visit. Continue Promogran, mupirocin and foam dressing. Continue 3M for edema management. Change on Saturday at facility. Optimal protein intake. Continue other chronic wound care management and off loading. Her questions were answered and she was advised to call with any further questions or concerns. Follow up in 2 weeks. This note was generated with [employer] dictation software. It may contain incorrect words, spelling, and punctuation that were not noted in checking the note before signing.
== END 2023-06-13 23:59 | disposition home or self-care (01) ==
LOC: WC 10:00
PROVIDERS: PCP Internal Medicine; Referring Provider Internal Medicine; Visit Provider Internal Medicine
DX: E11.622 Type 2 diabetes mellitus with other skin ulcer (principal); L97.312 Non-pressure chronic ulcer of right ankle with fat layer exposed; Z79.4 Long term (current) use of insulin; Z72.0 Tobacco use
CPT/HCPCS: 11042; 29581

== ENCOUNTER 2023-07-11 09:00 | Outpatient (RCR) | payer MEDICARE, MEDICAID, SELFPAY ==
[2023-06-14 00:45] VITALS: BP 142/62; PULSE 97; RESP 16; TEMP 35.3
[2023-07-04 08:52] VITALS: BP 127/68; PULSE 70; RESP 16; TEMP 35.6
[2023-07-11 08:53] VITALS: BP 114/62; PULSE 81; RESP 18; TEMP 35.7
--- NOTE | 2023-07-11 09:19 | PCM.WC.PN ---
History of Present Illness Date of Service: 07/11/23 Chief Complaint: Non healing right ankle ulcer History of Wound: Ms. Lam is a 62-year-old who was referred to this facility due to nonhealing right lateral ankle ulcer. Noted a year ago, started out as a bullae and subsequently opened up. She states that over the years, she has had alginate and collagen dressings done at her facility without any significant improvement. History of diabetes mellitus, she is not sure of her most recent A1c but states that it has ranged from 8-13. Also history of tobacco use, smokes daily. There is significant pain around the ulcer but she denies otherwise significant leg pain. Does not wear compression. Mostly sedentary but sleeps in the bed. She feels well otherwise, no chills, fever, nausea, vomiting or change in bowel habit reported. Progress of Wound: No new concerns at this time. Minimal change.. Had dressing on for 2 weeks prior to a recent nurse visit due to lack of supplies at her facility. Objective Data Objective Data Vital Signs: Vital Signs Temp Pulse Resp BP O2 Del Method 96.3 F L 81 18 114/62 Room Air 07/11/23 08:53 07/11/23 08:53 07/11/23 08:53 07/11/23 08:53 07/04/23 08:52 Oxygen Delivery Method Room Air Charges/Coding Procedures Integumentary 111xxx-113xx: 52925 Carla subq tissue 20 sq cm/< Physical Exam Const alert, oriented x3 and no apparent distress General Appearance: cooperative, comfortable and well kempt HEENT normocephalic and head/scalp atraumatic Eyes EOMs intact bilaterally General Eye: normal appearance of both eyes Neck full ROM and supple General: normal visual inspection Resp normal respiratory effort Effort and Inspection: able to speak in complete sentences Extremity General Extremity: edema Skin Wounds: wounds noted Neuro oriented x3, CN's II-XII intact bilaterally and moves all extremities Psych mental status grossly normal, thought process normal, cooperative and affect normal Debridement Note Debridement Note Wound debrided: Right lateral foot/ankle Type of Debridement: Excisional debridement Anesthesia Used: 5% Lidocaine Gel Depth: Down to and including healthy tissue and in the subcutaneous layer Percentage of wound debrided: 100 Instrument Used: 5mm curette Tissue Removed: Slough and devitalized tissue Severity: Fat Layer Exposed Amount of bleeding with debridement: Mild Bleeding Controlled with: Pressure Patient tolerated procedure: Patient tolerated procedure well Post-Debridement Measurements and Additional Note: Post-Debridement Measurements/Treatment WC - Nurse 1 - General Ulcer Assessment Start: 07/04/23 08:52 Freq: Status: Active Protocol: CLOVIS Activity Type Activity Date Activity User E-sign Co-sign Detail Recorded Client Recorded Date Recorded By Document 07/04/23 08:52 BMF Desktop 07/04/23 09:03 BMF Document 07/11/23 08:53 DL Desktop 07/11/23 09:03 DL 07/04/23 07/11/23 08:52 08:53 WC - Today's Visit Information Type of service Nurse-only Follow-up Visit Visit (Physician/DRAMA DIRECTOR ) Arrival Mode Wheelchair Wheelchair Transfer Assistance None Patient Identification Verified (Name & Yes Yes ) Patient Requires Transmission-Based No No Precautions Finger Stick Blood Sugar(mg/dl) (if 116 indicated): Blood Sugar Stated by Patient Vital Signs Temperature (97.8 F-99.1 F) 96.1 F L 96.3 F L Temperature Source Temporal Temporal Pulse Rate (60-100) 70 81 Pulse Location Monitor Monitor Respiratory Rate (12-18) 16 18 Respiratory rate source Observation Observation Oxygen Delivery Method Room Air Blood Pressure (90/60-120/80) 127/68 H 114/62 Blood Pressure Mean (mm Hg) 87 79 Source Monitor Monitor Position Sitting Blood Pressure Location Right Arm History Since Last Visit- (Skip if this is Patient's initial visit) Have you changed medications since your No No last visit? Any new allergies or adverse reactions No No Had a fall/change in ADL's that may No No increase risk of falls Signs or symptoms of abuse and/or No No neglect since last visit Have you been in the hospital since your No No last visit? Has dressing in place as prescribed Yes Yes Has compression in place as prescribed Yes Yes Has offloadiing in place as prescribed N/A Yes Experienced any changes in pain level or No No management Left Footwear Regular Shoe Regular Shoe Right Footwear Regular Shoe Regular Shoe Pain Scale: 0-10 Numeric Is Patient Pain Free? Yes Yes RUY - Nurse 1 - General Ulcer Measurement Start: 07/04/23 08:52 Freq: Status: Active Protocol: Activity Type Activity Date Activity User E-sign Co-sign Detail Recorded Client Recorded Date Recorded By Document 07/04/23 08:52 BMF Desktop 07/04/23 09:03 [facility] Document 07/11/23 08:53 DL Desktop 07/11/23 09:03 DL 07/04/23 07/11/23 08:52 08:53 Wound Center Nurse 1 #1 R Lat Ankle -Combined with other wound No -Current Size (cm) - Length 1.4 1 -Current Size (cm) - Width 0.8 1 -Current Size (cm) - Depth 0.4 0.2 -Total Square Cm 1.12 1 -Photo Taken Yes -Exudate Amt Medium Small -Exudate Type Serosanguineous Serosanguineous -Wound Margin Distinct, Thickened Outline Attached -Granulation Amt Large (67-100%) Small (1-33%) -Granulation Quality [place] -Slough/Fibrin Yes -Necrosis Amt Small (1-33%) Medium (34-66%) -Necrotic Tissue Type Adherent Slough Adherent Slough -Texture (Lori-wound Skin Appearance) Assessed Callus,Scarring -Moisture (Lori-wound Skin Appearance) Assessed, Maceration Maceration,Dry/ Scaly -Color (Lori-wound Skin Appearance) Assessed Hemosiderin Staining -Temperature (Lori-wound Skin No Abnormality No Abnormality Appearance) (Pt Warm) (Pt Warm) -Tenderness on Palpation (Lori-wound No No Skin Appearance) -Ulcer Cleansing Soap and Water Soap and Water -Foul Odor after Cleansing No No -Anesthetic Used 5% Lidocaine Gel -Wound Comment(s) pt missed a few States More appts d/t painful last covid. current few days to [facility] she's touch wearing is dated for 06/21. [facility] has not changed it since then and had not called for new orders. Right Calf (cm) 35 34 Right Ankle (cm) 21.5 21.5 WC - Nurse 2 - General Ulcer CM Notes Start: 07/04/23 08:52 Freq: Status: Active Protocol: Activity Type Activity Date Activity User E-sign Co-sign Detail Recorded Client Recorded Date Recorded By Document 07/11/23 09:15 Desktop 07/11/23 09:18 07/11/23 09:15 Wound Center Nurse 2 #1 R Lat Ankle -Time 09:15 -Correct Patient Yes -Correct Side, Site, Position Yes -Correct Procedure Yes -Procedure Performed Yes -Type of Procedure Debridement -Clinical Debridement Subcutaneous -Tissue Removed Subcutaneous -Post Debridement (cm) - Length 1.0 -Post Debridement (cm) - Width 1.0 -Post Debridement (cm) - Depth 0.1 -Total Square (Post) (cm) 1.00 -Area of Debridement (cm) - Length 1.0 -Area of Debridement (cm) - Width 1.0 -Total Square (Area) (cm) 1.00 -Tunneling No -Undermining/Tunneling No -Circular Undermining No -Wound/Ulcer Outcome Not Healed -Ulcer Cleansing Rinsed/ Irrigated with Saline -Foul Odor after Cleansing No -Bioengineered Tissue No -Bleeding Controlled with Pressure -Treatment Response Procedure Tolerated Well -Debridement - Subq, 1st 20sq cm Yes Pain Scale: 0-10 Numeric Is Patient Pain Free? Yes WC - Nurse 3 - General Ulcer D/C NN Start: 07/04/23 08:52 Freq: Status: Active Protocol: Activity Type Activity Date Activity User E-sign Co-sign Detail Recorded Client Recorded Date Recorded By Document 07/04/23 08:52 BMF Desktop 07/04/23 09:03 BMF Edit Result 07/04/23 08:52 BMF (1) [id number] 07/05/23 06:38 PL (1) Left - Multi-Layered Wrap Application => Multi-Layer Comp - => Left ($) 07/04/23 08:52 Vital Signs Temperature (97.8 F-99.1 F) 96.1 F L Temperature Source Temporal Pulse Rate (60-100) 70 Pulse Location Monitor Respiratory Rate (12-18) 16 Respiratory rate source Observation Oxygen Delivery Method Room Air Blood Pressure (90/60-120/80) 127/68 H Blood Pressure Mean (mm Hg) 87 Source Monitor Position Sitting Blood Pressure Location Right Arm Pain Scale: 0-10 Numeric Is Patient Pain Free? Yes Wound Care Center Nurse 3 Left -Multi-Layered Wrap Application Multi-Layer Comp - Left ($) Assessment/Plan Assessment/Plan (1) 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: CODE(S): L97.312 - Non-pressure chronic ulcer of right ankle with fat layer exposed (2) Insulin dependent diabetes mellitus: (3) Tobacco abuse: CODE(S): Z72.0 - Tobacco use PLAN: Plan Debridement done as documented above, procedure was well-tolerated. Minimal improvement. As above, had concerns with dressing changes at her facility. Continue Promogran, mupirocin and foam dressing. Continue 3M for edema management. Change on Saturday at facility. Optimal protein intake. Continue other chronic wound care management and off loading. Her questions were answered and she was advised to call with any further questions or concerns. Follow up in 1 week. This note was generated with [employer] dictation software. It may contain incorrect words, spelling, and punctuation that were not noted in checking the note before signing.
== END 2023-07-14 23:59 | disposition home or self-care (01) ==
LOC: WC 09:00
PROVIDERS: PCP Internal Medicine; Referring Provider Internal Medicine; Visit Provider Internal Medicine
DX: L97.312 Non-pressure chronic ulcer of right ankle with fat layer exposed (principal); Z72.0 Tobacco use
CPT/HCPCS: 11042; 29581

== ENCOUNTER 2023-08-08 09:00 | Outpatient (RCR) | payer MEDICARE, MEDICAID, SELFPAY ==
[2023-07-15 00:44] VITALS: BP 114/62; PULSE 81; RESP 18; TEMP 35.7
[2023-07-18 08:50] VITALS: BP 127/57; PULSE 81; RESP 16; TEMP 36.2
[2023-07-25 08:49] VITALS: BP 106/55; PULSE 80; RESP 16; TEMP 36.1
--- NOTE | 2023-07-25 10:28 | PCM.WC.PN ---
History of Present Illness Date of Service: 07/25/23 Chief Complaint: Non healing right ankle ulcer History of Wound: Ms. Lam is a 62-year-old who was referred to this facility due to nonhealing right lateral ankle ulcer. Noted a year ago, started out as a bullae and subsequently opened up. She states that over the years, she has had alginate and collagen dressings done at her facility without any significant improvement. History of diabetes mellitus, she is not sure of her most recent A1c but states that it has ranged from 8-13. Also history of tobacco use, smokes daily. There is significant pain around the ulcer but she denies otherwise significant leg pain. Does not wear compression. Mostly sedentary but sleeps in the bed. She feels well otherwise, no chills, fever, nausea, vomiting or change in bowel habit reported. Progress of Wound: No new concerns at this time. Currently on antibiotics per culture and sensitivity. Objective Data Objective Data Vital Signs: Vital Signs Temp Pulse Resp BP O2 Del Method 97 F L 80 16 106/55 L Room Air 07/25/23 08:49 07/25/23 08:49 07/25/23 08:49 07/25/23 08:49 07/25/23 08:49 Oxygen Delivery Method Room Air Lab / Micro Data Micro: Microbiology 07/18/23 09:35 Wound - Ankle Gram Stain - Final 07/18/23 09:35 Wound - Ankle Wound Culture - Final Meth. resistant Staph. aureus 07/18/23 09:35 Wound - Ankle Anaerobic Culture - Final No anaerobic bacteria isolated. Charges/Coding Procedures Integumentary 111xxx-113xx: 41515 Carla subq tissue 20 sq cm/< Physical Exam Const alert, oriented x3 and no apparent distress General Appearance: cooperative, comfortable and well kempt HEENT normocephalic and head/scalp atraumatic Eyes EOMs intact bilaterally General Eye: normal appearance of both eyes Neck full ROM and supple General: normal visual inspection Resp normal respiratory effort Effort and Inspection: able to speak in complete sentences Extremity General Extremity: edema Skin Wounds: wounds noted Neuro oriented x3, CN's II-XII intact bilaterally and moves all extremities Psych mental status grossly normal, thought process normal, cooperative and affect normal Debridement Note Debridement Note Wound debrided: Right lateral foot/ankle Type of Debridement: Excisional debridement Anesthesia Used: 5% Lidocaine Gel Depth: Down to and including healthy tissue and in the subcutaneous layer Percentage of wound debrided: 100 Instrument Used: 5mm curette Tissue Removed: Slough and devitalized tissue Severity: Fat Layer Exposed Amount of bleeding with debridement: Mild Bleeding Controlled with: Pressure Patient tolerated procedure: Patient tolerated procedure well Post-Debridement Measurements and Additional Note: Post-Debridement Measurements/Treatment - Nurse 1 - General Ulcer Assessment Start: 07/18/23 08:50 Freq: Status: Active Protocol: CLOVIS Activity Type Activity Date Activity User E-sign Co-sign Detail Recorded Client Recorded Date Recorded By Document 07/18/23 08:50 [facility] Desktop 07/18/23 08:58 [facility] Document 07/25/23 08:49 [facility] Desktop 07/25/23 08:56 [facility] 07/18/23 07/25/23 08:50 08:49 - Today's Visit Information Type of service Follow-up Visit Follow-up Visit (Physician/ENTRY LEVEL AUTOMOTIVE TECHNICIAN (Physician/ENTRY LEVEL AUTOMOTIVE TECHNICIAN ) ) Arrival Mode Wheelchair Wheelchair Transfer Assistance None None Patient Identification Verified (Name & Yes Yes ) Patient Requires Transmission-Based No No Precautions Vital Signs Temperature (97.8 F-99.1 F) 97.1 F L 97 F L Temperature Source Temporal Temporal Pulse Rate (60-100) 81 80 Pulse Location Monitor Monitor Respiratory Rate (12-18) 16 16 Respiratory rate source Observation Observation Oxygen Delivery Method Room Air Room Air Blood Pressure (90/60-120/80) 127/57 H 106/55 L Blood Pressure Mean (mm Hg) 80 72 Source Monitor Monitor Position Sitting Sitting Blood Pressure Location Right Arm Left Arm History Since Last Visit- (Skip if this is Patient's initial visit) Have you changed medications since your No No last visit? Any new allergies or adverse reactions No No Had a fall/change in ADL's that may No No increase risk of falls Signs or symptoms of abuse and/or No No neglect since last visit Have you been in the hospital since your No No last visit? Has dressing in place as prescribed Yes Yes Has compression in place as prescribed Yes Yes Has offloadiing in place as prescribed N/A N/A Experienced any changes in pain level or No No management Left Footwear Regular Shoe Regular Shoe Right Footwear Regular Shoe Regular Shoe Pain Scale: 0-10 Numeric Is Patient Pain Free? Yes Yes - Nurse 1 - General Ulcer Measurement Start: 07/18/23 08:50 Freq: Status: Active Protocol: Activity Type Activity Date Activity User E-sign Co-sign Detail Recorded Client Recorded Date Recorded By Document 07/18/23 08:50 F Desktop 07/18/23 08:58 BMF Document 07/25/23 08:49 BM Desktop 07/25/23 08:56 BMF 07/18/23 07/25/23 08:50 08:49 Wound Center Nurse 1 #1 R Lat Ankle -Combined with other wound No No -Current Size (cm) - Length 1.3 1.2 -Current Size (cm) - Width 0.7 0.7 -Current Size (cm) - Depth 0.2 0.1 -Total Square Cm 0.91 0.84 -Date of Last Picture (Recall this 07/18/23 field) -Photo Taken Yes -Epithelialization None Present -Tunneling No No -Undermining/Tunneling No No -Circular Undermining No No -Exudate Amt Medium Medium -Exudate Type Serosanguineous Serosanguineous -Wound Margin Thickened Distinct, Outline Attached -Granulation Amt Medium (34-66%) Large (67-100%) -Granulation Quality Red Red -Slough/Fibrin Yes Yes -Necrosis Amt Medium (34-66%) Small (1-33%) -Necrotic Tissue Type Adherent Slough Adherent Slough -Texture (Lori-wound Skin Appearance) Assessed, Assessed, Scarring Scarring -Moisture (Lori-wound Skin Appearance) Assessed, Assessed, Maceration,Dry/ Maceration,Dry/ Scaly Scaly -Color (Lori-wound Skin Appearance) Assessed Assessed, Erythema -Temperature (Lori-wound Skin No Abnormality No Abnormality Appearance) (Pt Warm) (Pt Warm) -Tenderness on Palpation (Lori-wound No No Skin Appearance) -Ulcer Cleansing Soap and Water Soap and Water -Foul Odor after Cleansing No No -Anesthetic Used 5% Lidocaine 5% Lidocaine Gel Gel Right Calf (cm) 34.5 34.8 Right Ankle (cm) 21.3 21.1 WC - Nurse 2 - General Ulcer CM Notes Start: 07/18/23 08:50 Freq: Status: Active Protocol: Activity Type Activity Date Activity User E-sign Co-sign Detail Recorded Client Recorded Date Recorded By Document 07/18/23 09:32 Desktop 07/18/23 09:38 Document 07/25/23 09:05 Desktop 07/25/23 09:11 07/18/23 07/25/23 09:32 09:05 Wound Center Nurse 2 #1 R Lat Ankle -Time 09:35 09:05 -Correct Patient Yes Yes -Correct Side, Site, Position Yes Yes -Correct Procedure Yes Yes -Procedure Performed Yes Yes -Type of Procedure Debridement Debridement -Clinical Debridement Subcutaneous Subcutaneous -Tissue Removed Subcutaneous Subcutaneous -Post Debridement (cm) - Length 1.3 0.9 -Post Debridement (cm) - Width 0.9 0.8 -Post Debridement (cm) - Depth 0.1 0.1 -Total Square (Post) (cm) 1.17 0.72 -Area of Debridement (cm) - Length 1.3 0.9 -Area of Debridement (cm) - Width 0.9 0.8 -Total Square (Area) (cm) 1.17 0.72 -Tunneling No No -Undermining/Tunneling No No -Circular Undermining No No -Wound/Ulcer Outcome Not Healed Not Healed -Ulcer Cleansing Rinsed/ Rinsed/ Irrigated with Irrigated with Saline Saline -Foul Odor after Cleansing No No -Bioengineered Tissue No No -Bleeding Controlled with Pressure Pressure,Silver Nitrate -Treatment Response Procedure Procedure Tolerated Well Tolerated Well -Debridement - Subq, 1st 20sq cm Yes Yes Pain Scale: 0-10 Numeric Is Patient Pain Free? Yes Yes WC - Nurse 3 - General Ulcer D/C NN Start: 07/18/23 08:50 Freq: Status: Active Protocol: Activity Type Activity Date Activity User E-sign Co-sign Detail Recorded Client Recorded Date Recorded By Document 07/18/23 09:48 Desktop 07/18/23 09:50 Document 07/25/23 09:22 Desktop 07/25/23 09:23 07/18/23 07/25/23 09:48 09:22 Wound Care Center Nurse 3 #1 R Lat Ankle -Ulcer Cleansing Not Cleansed Not Cleansed -Foul Odor after Cleansing No No -Primary Dressing Applied Mepilex Border, Aquacel Extra, Promogran Mepilex Border, Promogran -Aquacel Extra 1 -Mepilex Border 1 1 -Promogran 1 1 Right -Lotion applied to leg before Yes Yes compression wrap -Multi-Layered Wrap Application Multi-Layer Multi-Layer Comp - Right ($ Comp - Right ($ ) ) -Other extra sent with patient Pain Scale: 0-10 Numeric Is Patient Pain Free? Yes Yes Teaching: Wound Center Eliminating Foot Pressure -Person Taught Patient Patient -Teaching Method Discussion Discussion -Response to teaching Verbalize Verbalize understanding understanding Dressing Your Wound -Person Taught Patient Patient -Teaching Method Discussion Discussion -Response to teaching Verbalize Verbalize understanding understanding WC - Visit Discharge Discharge Condition Stable Stable Ambulatory Status Wheelchair Wheelchair Transportation Private Auto Private Auto Medication Reconcilliation completed & Yes Yes provided to patient/care provider Clinical Summary of Care Provided Yes Yes Assessment/Plan Assessment/Plan (1) 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: CODE(S): L97.312 - Non-pressure chronic ulcer of right ankle with fat layer exposed (2) Insulin dependent diabetes mellitus: (3) Tobacco abuse: CODE(S): Z72.0 - Tobacco use PLAN: Plan Debridement done as documented above, procedure was well-tolerated. Some improvement noted. Continue Promogran, mupirocin and foam dressing. Continue 3M for edema management. Change on Saturday at facility. Optimal protein intake. Continue other chronic wound care management and off loading. Her questions were answered and she was advised to call with any further questions or concerns. Follow up in 1 week. This note was generated with [employer] dictation software. It may contain incorrect words, spelling, and punctuation that were not noted in checking the note before signing.
[2023-08-01 08:39] VITALS: BP 130/63; PULSE 83; RESP 16; TEMP 35.7
--- NOTE | 2023-08-01 10:48 | PCM.WC.PN ---
History of Present Illness Date of Service: 08/01/23 Chief Complaint: Non healing right ankle ulcer History of Wound: Ms. Lam is a 62-year-old who was referred to this facility due to nonhealing right lateral ankle ulcer. Noted a year ago, started out as a bullae and subsequently opened up. She states that over the years, she has had alginate and collagen dressings done at her facility without any significant improvement. History of diabetes mellitus, she is not sure of her most recent A1c but states that it has ranged from 8-13. Also history of tobacco use, smokes daily. There is significant pain around the ulcer but she denies otherwise significant leg pain. Does not wear compression. Mostly sedentary but sleeps in the bed. She feels well otherwise, no chills, fever, nausea, vomiting or change in bowel habit reported. Progress of Wound: Improving. No new concerns at this time. Objective Data Objective Data Vital Signs: Vital Signs Temp Pulse Resp BP O2 Del Method 96.3 F L 83 16 130/63 H Room Air 08/01/23 08:39 08/01/23 08:39 08/01/23 08:39 08/01/23 08:39 08/01/23 08:39 Oxygen Delivery Method Room Air Lab / Micro Data Micro: Microbiology 07/18/23 09:35 Wound - Ankle Gram Stain - Final 07/18/23 09:35 Wound - Ankle Wound Culture - Final Meth. resistant Staph. aureus 07/18/23 09:35 Wound - Ankle Anaerobic Culture - Final No anaerobic bacteria isolated. Charges/Coding Procedures Integumentary [id number]: [id number] Carla subq tissue 20 sq cm/< Physical Exam Const alert, oriented x3 and no apparent distress General Appearance: cooperative, comfortable and well kempt HEENT normocephalic and head/scalp atraumatic Eyes EOMs intact bilaterally General Eye: normal appearance of both eyes Neck full ROM and supple General: normal visual inspection Resp normal respiratory effort Effort and Inspection: able to speak in complete sentences Extremity General Extremity: edema Skin Wounds: wounds noted Neuro oriented x3, CN's II-XII intact bilaterally and moves all extremities Psych mental status grossly normal, thought process normal, cooperative and affect normal Debridement Note Debridement Note Wound debrided: Right lateral foot/ankle Type of Debridement: Excisional debridement Anesthesia Used: 5% Lidocaine Gel Depth: Down to and including healthy tissue and in the subcutaneous layer Percentage of wound debrided: 100 Instrument Used: 5mm curette Tissue Removed: Slough and devitalized tissue Severity: Fat Layer Exposed Amount of bleeding with debridement: Mild Bleeding Controlled with: Pressure Patient tolerated procedure: Patient tolerated procedure well Post-Debridement Measurements and Additional Note: Post-Debridement Measurements/Treatment RUY - Nurse 1 - General Ulcer Assessment Start: 07/18/23 08:50 Freq: Status: Active Protocol: CLOVIS Activity Type Activity Date Activity User E-sign Co-sign Detail Recorded Client Recorded Date Recorded By Document 07/18/23 08:50 [employer] Desktop 07/18/23 08:58 [employer] Document 07/25/23 08:49 [employer] Desktop 07/25/23 08:56 [employer] Document 08/01/23 08:39 [employer] Desktop 08/01/23 08:49 [facility] 07/18/23 07/25/23 08/01/23 08:50 08:49 08:39 RUY - Today's Visit Information Type of service Follow-up Visit Follow-up Visit Follow-up Visit (Physician/CHIEF KNOWLEDGE OFFICER (Physician/CHIEF KNOWLEDGE OFFICER (Physician/CHIEF KNOWLEDGE OFFICER ) ) ) Arrival Mode Wheelchair Wheelchair Wheelchair Transfer Assistance None None None Patient Identification Verified (Name & Yes Yes Yes ) Patient Requires Transmission-Based No No No Precautions Vital Signs Temperature (97.8 F-99.1 F) 97.1 F L 97 F L 96.3 F L Temperature Source Temporal Temporal Temporal Pulse Rate (60-100) 81 80 83 Pulse Location Monitor Monitor Monitor Respiratory Rate (12-18) 16 16 16 Respiratory rate source Observation Observation Observation Oxygen Delivery Method Room Air Room Air Room Air Blood Pressure (90/60-120/80) 127/57 H 106/55 L 130/63 H Blood Pressure Mean (mm Hg) 80 72 85 Source Monitor Monitor Monitor Position Sitting Sitting Sitting Blood Pressure Location Right Arm Left Arm Right Arm History Since Last Visit- (Skip if this is Patient's initial visit) Have you changed medications since your No No No last visit? Any new allergies or adverse reactions No No No Had a fall/change in ADL's that may No No No increase risk of falls Signs or symptoms of abuse and/or No No No neglect since last visit Have you been in the hospital since your No No No last visit? Has dressing in place as prescribed Yes Yes Yes Has compression in place as prescribed Yes Yes Yes Has offloadiing in place as prescribed N/A N/A N/A Experienced any changes in pain level or No No No management Left Footwear Regular Shoe Regular Shoe Regular Shoe Right Footwear Regular Shoe Regular Shoe Regular Shoe Pain Scale: 0-10 Numeric Is Patient Pain Free? Yes Yes Yes WC - Nurse 1 - General Ulcer Measurement Start: 07/18/23 08:50 Freq: Status: Active Protocol: Activity Type Activity Date Activity User E-sign Co-sign Detail Recorded Client Recorded Date Recorded By Document 07/18/23 08:50 [employer] Desktop 07/18/23 08:58 [employer] Document 07/25/23 08:49 [employer] Desktop 07/25/23 08:56 [facility] Document 08/01/23 08:39 [facility] Desktop 08/01/23 08:49 [facility] 07/18/23 07/25/23 08/01/23 08:50 08:49 08:39 Wound Center Nurse 1 #1 R Lat Ankle -Combined with other wound No No No -Current Size (cm) - Length 1.3 1.2 1 -Current Size (cm) - Width 0.7 0.7 0.4 -Current Size (cm) - Depth 0.2 0.1 0.2 -Total Square Cm 0.91 0.84 0.4 -Date of Last Picture (Recall this 07/18/23 08/01/23 field) -Photo Taken Yes Yes -Epithelialization None Present Small 1-33% -Tunneling No No No -Undermining/Tunneling No No No -Circular Undermining No No No -Exudate Amt Medium Medium Medium -Exudate Type Serosanguineous Serosanguineous Serosanguineous -Wound Margin Thickened Distinct, Thickened Outline Attached -Granulation Amt Medium (34-66%) Large (67-100%) Medium (34-66%) -Granulation Quality Red Red Pale,Red -Slough/Fibrin Yes Yes Yes -Necrosis Amt Medium (34-66%) Small (1-33%) Small (1-33%) -Necrotic Tissue Type Adherent Slough Adherent Slough Adherent Slough -Texture (Lori-wound Skin Appearance) Assessed, Assessed, Assessed,Callus Scarring Scarring -Moisture (Lori-wound Skin Appearance) Assessed, Assessed, Assessed, Maceration,Dry/ Maceration,Dry/ Maceration,Dry/ Scaly Scaly Scaly -Color (Lori-wound Skin Appearance) Assessed Assessed, Assessed Erythema -Temperature (Lori-wound Skin No Abnormality No Abnormality No Abnormality Appearance) (Pt Warm) (Pt Warm) (Pt Warm) -Tenderness on Palpation (Lori-wound No No No Skin Appearance) -Ulcer Cleansing Soap and Water Soap and Water Soap and Water -Foul Odor after Cleansing No No No -Anesthetic Used 5% Lidocaine 5% Lidocaine 5% Lidocaine Gel Gel Gel Lower Limb Edema Present Yes Right Calf (cm) 34.5 34.8 34.7 Right Ankle (cm) 21.3 21.1 21.5 WC - Nurse 2 - General Ulcer CM Notes Start: 07/18/23 08:50 Freq: Status: Active Protocol: Activity Type Activity Date Activity User E-sign Co-sign Detail Recorded Client Recorded Date Recorded By Document 07/18/23 09:32 [employer] 07/18/23 09:38 Document 07/25/23 09:05 [employer] 07/25/23 09:11 Document 08/01/23 09:52 [facility] Desktop 08/01/23 09:57 [facility] 07/18/23 07/25/23 08/01/23 09:32 09:05 09:52 Wound Center Nurse 2 #1 R Lat Ankle -Time 09:35 09:05 09:52 -Correct Patient Yes Yes Yes -Correct Side, Site, Position Yes Yes Yes -Correct Procedure Yes Yes Yes -Procedure Performed Yes Yes Yes -Type of Procedure Debridement Debridement Debridement -Clinical Debridement Subcutaneous Subcutaneous Subcutaneous -Tissue Removed Subcutaneous Subcutaneous Subcutaneous -Post Debridement (cm) - Length 1.3 0.9 -Post Debridement (cm) - Width 0.9 0.8 -Post Debridement (cm) - Depth 0.1 0.1 -Total Square (Post) (cm) 1.17 0.72 -Area of Debridement (cm) - Length 1.3 0.9 -Area of Debridement (cm) - Width 0.9 0.8 -Total Square (Area) (cm) 1.17 0.72 -Tunneling No No No -Undermining/Tunneling No No No -Circular Undermining No No No -Wound/Ulcer Outcome Not Healed Not Healed Not Healed -Ulcer Cleansing Rinsed/ Rinsed/ Rinsed/ Irrigated with Irrigated with Irrigated with Saline Saline Saline -Foul Odor after Cleansing No No No -Bioengineered Tissue No No No -Bleeding Controlled with Pressure Pressure,Silver NA Nitrate -Treatment Response Procedure Procedure Tolerated Well Tolerated Well -Debridement - Subq, 1st 20sq cm Yes Yes Yes Pain Scale: 0-10 Numeric Is Patient Pain Free? Yes Yes Yes - Nurse 3 - General Ulcer D/C NN Start: 07/18/23 08:50 Freq: Status: Active Protocol: Activity Type Activity Date Activity User E-sign Co-sign Detail Recorded Client Recorded Date Recorded By Document 07/18/23 09:48 [employer] Desktop 07/18/23 09:50 [facility] Document 07/25/23 09:22 Desktop 07/25/23 09:23 GM Document 08/01/23 10:06 [facility] Desktop 08/01/23 10:07 BMF 07/18/23 07/25/23 08/01/23 09:48 09:22 10:06 Wound Care Center Nurse 3 #1 R Lat Ankle -Ulcer Cleansing Not Cleansed Not Cleansed Rinsed/ Irrigated with Saline -Foul Odor after Cleansing No No No -Primary Dressing Applied Mepilex Border, Aquacel Extra, Aquacel Extra, Promogran Mepilex Border, Mepilex Border, Promogran Promogran -Other Dressing bactroban -Other Covering drsg per rb rn -Aquacel Extra 1 1 -Mepilex Border 1 1 1 -Promogran 1 1 1 Right -Lotion applied to leg before Yes Yes Yes compression wrap -Multi-Layered Wrap Application Multi-Layer Multi-Layer Multi-Layer Comp - Right ($ Comp - Right ($ Comp - Right ($ ) ) ) -Other extra sent with applied per rb patient rn Treatment Response Procedure Tolerated Well Pain Scale: 0-10 Numeric Is Patient Pain Free? Yes Yes Yes Teaching: Wound Center Eliminating Foot Pressure -Person Taught Patient Patient -Teaching Method Discussion Discussion -Response to teaching Verbalize Verbalize understanding understanding Dressing Your Wound -Person Taught Patient Patient -Teaching Method Discussion Discussion -Response to teaching Verbalize Verbalize understanding understanding WC - Visit Discharge Discharge Condition Stable Stable Stable Ambulatory Status Wheelchair Wheelchair Wheelchair Transportation Private Auto Private Auto ecf transport Medication Reconcilliation completed & Yes Yes provided to patient/care provider Clinical Summary of Care Provided Yes Yes Facility Type Health Insurance Adjuster Care Facility Assessment/Plan Assessment/Plan (1) 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: CODE(S): L97.312 - Non-pressure chronic ulcer of right ankle with fat layer exposed (2) Insulin dependent diabetes mellitus: (3) Tobacco abuse: CODE(S): Z72.0 - Tobacco use PLAN: Plan Debridement done as documented above, procedure was well-tolerated. Some improvement noted. Continue Promogran, mupirocin and foam dressing. Continue 3M for edema management. Change on Saturday at facility. Optimal protein intake. Continue other chronic wound care management and off loading. Her questions were answered and she was advised to call with any further questions or concerns. Follow up in 1 week. This note was generated with [employer] dictation software. It may contain incorrect words, spelling, and punctuation that were not noted in checking the note before signing.
[2023-08-08 09:02] VITALS: BP 112/60; PULSE 84; RESP 20; TEMP 35.8
--- NOTE | 2023-08-08 09:20 | PCM.WC.PN ---
History of Present Illness Date of Service: 08/08/23 Chief Complaint: Non healing right ankle ulcer History of Wound: Ms. Lam is a 62-year-old who was referred to this facility due to nonhealing right lateral ankle ulcer. Noted a year ago, started out as a bullae and subsequently opened up. She states that over the years, she has had alginate and collagen dressings done at her facility without any significant improvement. History of diabetes mellitus, she is not sure of her most recent A1c but states that it has ranged from 8-13. Also history of tobacco use, smokes daily. There is significant pain around the ulcer but she denies otherwise significant leg pain. Does not wear compression. Mostly sedentary but sleeps in the bed. She feels well otherwise, no chills, fever, nausea, vomiting or change in bowel habit reported. Progress of Wound: Improving. No new concerns at this time. Objective Data Objective Data Vital Signs: Vital Signs Temp Pulse Resp BP O2 Del Method 96.5 F L 84 20 H 112/60 Room Air 08/08/23 09:02 08/08/23 09:02 08/08/23 09:02 08/08/23 09:02 08/01/23 08:39 Oxygen Delivery Method Room Air Lab / Micro Data Micro: Microbiology 07/18/23 09:35 Wound - Ankle Gram Stain - Final 07/18/23 09:35 Wound - Ankle Wound Culture - Final Meth. resistant Staph. aureus 07/18/23 09:35 Wound - Ankle Anaerobic Culture - Final No anaerobic bacteria isolated. Charges/Coding Procedures Integumentary [id number]: [id number] Carla subq tissue 20 sq cm/< Physical Exam Const alert, oriented x3 and no apparent distress General Appearance: cooperative, comfortable and well kempt HEENT normocephalic and head/scalp atraumatic Eyes EOMs intact bilaterally General Eye: normal appearance of both eyes Neck full ROM and supple General: normal visual inspection Resp normal respiratory effort Effort and Inspection: able to speak in complete sentences Extremity General Extremity: edema Skin Wounds: wounds noted Neuro oriented x3, CN's II-XII intact bilaterally and moves all extremities Psych mental status grossly normal, thought process normal, cooperative and affect normal Debridement Note Debridement Note Wound debrided: Right lateral foot/ankle Type of Debridement: Excisional debridement Anesthesia Used: 5% Lidocaine Gel Depth: Down to and including healthy tissue and in the subcutaneous layer Percentage of wound debrided: 100 Instrument Used: 5mm curette Tissue Removed: Slough and devitalized tissue Severity: Fat Layer Exposed Amount of bleeding with debridement: Mild Bleeding Controlled with: Pressure Patient tolerated procedure: Patient tolerated procedure well Post-Debridement Measurements and Additional Note: Post-Debridement Measurements/Treatment RUY - Nurse 1 - General Ulcer Assessment Start: 07/18/23 08:50 Freq: Status: Active Protocol: CLOVIS Activity Type Activity Date Activity User E-sign Co-sign Detail Recorded Client Recorded Date Recorded By Document 07/18/23 08:50 BMF Desktop 07/18/23 08:58 BMF Document 07/25/23 08:49 BMF Desktop 07/25/23 08:56 BMF Document 08/01/23 08:39 BMF Desktop 08/01/23 08:49 BMF Document 08/08/23 09:02 DL Desktop 08/08/23 09:05 DL 07/18/23 07/25/23 08/01/23 08:50 08:49 08:39 - Today's Visit Information Type of service Follow-up Visit Follow-up Visit Follow-up Visit (Physician/BEAN SNAPPER (Physician/BEAN SNAPPER (Physician/BEAN SNAPPER ) ) ) Arrival Mode Wheelchair Wheelchair Wheelchair Transfer Assistance None None None Patient Identification Verified (Name & Yes Yes Yes ) Patient Requires Transmission-Based No No No Precautions Finger Stick Blood Sugar(mg/dl) (if indicated): Blood Sugar Vital Signs Temperature (97.8 F-99.1 F) 97.1 F L 97 F L 96.3 F L Temperature Source Temporal Temporal Temporal Pulse Rate (60-100) 81 80 83 Pulse Location Monitor Monitor Monitor Respiratory Rate (12-18) 16 16 16 Respiratory rate source Observation Observation Observation Oxygen Delivery Method Room Air Room Air Room Air Blood Pressure (90/60-120/80) 127/57 H 106/55 L 130/63 H Blood Pressure Mean (mm Hg) 80 72 85 Source Monitor Monitor Monitor Position Sitting Sitting Sitting Blood Pressure Location Right Arm Left Arm Right Arm History Since Last Visit- (Skip if this is Patient's initial visit) Have you changed medications since your No No No last visit? Any new allergies or adverse reactions No No No Had a fall/change in ADL's that may No No No increase risk of falls Signs or symptoms of abuse and/or No No No neglect since last visit Have you been in the hospital since your No No No last visit? Has dressing in place as prescribed Yes Yes Yes Has compression in place as prescribed Yes Yes Yes Has offloadiing in place as prescribed N/A N/A N/A Experienced any changes in pain level or No No No management Left Footwear Regular Shoe Regular Shoe Regular Shoe Right Footwear Regular Shoe Regular Shoe Regular Shoe Pain Scale: 0-10 Numeric Is Patient Pain Free? Yes Yes Yes 08/08/23 09:02 - Today's Visit Information Type of service Follow-up Visit (Physician/BEAN SNAPPER ) Arrival Mode Wheelchair Transfer Assistance None Patient Identification Verified (Name & Yes ) Patient Requires Transmission-Based No Precautions Finger Stick Blood Sugar(mg/dl) (if 219 indicated): Blood Sugar Stated by Patient Vital Signs Temperature (97.8 F-99.1 F) 96.5 F L Temperature Source Temporal Pulse Rate (60-100) 84 Pulse Location Monitor Respiratory Rate (12-18) 20 H Respiratory rate source Observation Oxygen Delivery Method Blood Pressure (90/60-120/80) 112/60 Blood Pressure Mean (mm Hg) 77 Source Monitor Position Blood Pressure Location History Since Last Visit- (Skip if this is Patient's initial visit) Have you changed medications since your No last visit? Any new allergies or adverse reactions No Had a fall/change in ADL's that may No increase risk of falls Signs or symptoms of abuse and/or No neglect since last visit Have you been in the hospital since your No last visit? Has dressing in place as prescribed Yes Has compression in place as prescribed Yes Has offloadiing in place as prescribed N/A Experienced any changes in pain level or No management Left Footwear Right Footwear Pain Scale: 0-10 Numeric Is Patient Pain Free? Yes - Nurse 1 - General Ulcer Measurement Start: 07/18/23 08:50 Freq: Status: Active Protocol: Activity Type Activity Date Activity User E-sign Co-sign Detail Recorded Client Recorded Date Recorded By Document 07/18/23 08:50 BMF Desktop 07/18/23 08:58 BMF Document 07/25/23 08:49 BMF Desktop 07/25/23 08:56 BM Document 08/01/23 08:39 BMF Desktop 08/01/23 08:49 BMF Document 08/08/23 09:02 DL Desktop 08/08/23 09:05 DL 07/18/23 07/25/23 08/01/23 08:50 08:49 08:39 Wound Center Nurse 1 #1 R Lat Ankle -Combined with other wound No No No -Current Size (cm) - Length 1.3 1.2 1 -Current Size (cm) - Width 0.7 0.7 0.4 -Current Size (cm) - Depth 0.2 0.1 0.2 -Total Square Cm 0.91 0.84 0.4 -Date of Last Picture (Recall this 07/18/23 08/01/23 field) -Photo Taken Yes Yes -Epithelialization None Present Small 1-33% -Tunneling No No No -Undermining/Tunneling No No No -Circular Undermining No No No -Exudate Amt Medium Medium Medium -Exudate Type Serosanguineous Serosanguineous Serosanguineous -Wound Margin Thickened Distinct, Thickened Outline Attached -Granulation Amt Medium (34-66%) Large (67-100%) Medium (34-66%) -Granulation Quality Red Red Pale,Red -Slough/Fibrin Yes Yes Yes -Necrosis Amt Medium (34-66%) Small (1-33%) Small (1-33%) -Necrotic Tissue Type Adherent Slough Adherent Slough Adherent Slough -Structure Exposed -Texture (Lori-wound Skin Appearance) Assessed, Assessed, Assessed,Callus Scarring Scarring -Moisture (Lori-wound Skin Appearance) Assessed, Assessed, Assessed, Maceration,Dry/ Maceration,Dry/ Maceration,Dry/ Scaly Scaly Scaly -Color (Lori-wound Skin Appearance) Assessed Assessed, Assessed Erythema -Temperature (Lori-wound Skin No Abnormality No Abnormality No Abnormality Appearance) (Pt Warm) (Pt Warm) (Pt Warm) -Tenderness on Palpation (Lori-wound No No No Skin Appearance) -Ulcer Cleansing Soap and Water Soap and Water Soap and Water -Foul Odor after Cleansing No No No -Anesthetic Used 5% Lidocaine 5% Lidocaine 5% Lidocaine Gel Gel Gel Lower Limb Edema Present Yes Right Calf (cm) 34.5 34.8 34.7 Right Ankle (cm) 21.3 21.1 21.5 08/08/23 09:02 Wound Center Nurse 1 #1 R Lat Ankle -Combined with other wound -Current Size (cm) - Length 0.7 -Current Size (cm) - Width 0.9 -Current Size (cm) - Depth 0.2 -Total Square Cm 0.63 -Date of Last Picture (Recall this field) -Photo Taken -Epithelialization -Tunneling -Undermining/Tunneling -Circular Undermining -Exudate Amt Medium -Exudate Type Serosanguineous -Wound Margin Thickened -Granulation Amt Small (1-33%) -Granulation Quality Pale,[place] -Slough/Fibrin -Necrosis Amt Small (1-33%) -Necrotic Tissue Type Adherent Slough -Structure Exposed N/A -Texture (Lori-wound Skin Appearance) Callus,Scarring -Moisture (Lori-wound Skin Appearance) Maceration -Color (Lori-wound Skin Appearance) Hemosiderin Staining -Temperature (Lori-wound Skin No Abnormality Appearance) (Pt Warm) -Tenderness on Palpation (Lori-wound Skin Appearance) -Ulcer Cleansing Soap and Water -Foul Odor after Cleansing No -Anesthetic Used 5% Lidocaine Gel Lower Limb Edema Present Right Calf (cm) 35 Right Ankle (cm) 22.7 WC - Nurse 2 - General Ulcer CM Notes Start: 07/18/23 08:50 Freq: Status: Active Protocol: Activity Type Activity Date Activity User E-sign Co-sign Detail Recorded Client Recorded Date Recorded By Document 07/18/23 09:32 Desktop 07/18/23 09:38 Document 07/25/23 09:05 Desktop 07/25/23 09:11 Document 08/01/23 09:52 [facility] Desktop 08/01/23 09:57 BMF Edit Result 08/01/23 09:52 [facility] (1) [id number] 08/01/23 14:12 (1) #1 R Lat Ankle - Bleeding Controlled with NA => Pressure,Silver => Nitrate - Treatment Response => Procedure => Tolerated Well - Assistive Device(s) => Wheelchair 07/18/23 07/25/23 08/01/23 09:32 09:05 09:52 Wound Center Nurse 2 #1 R Lat Ankle -Time 09:35 09:05 09:52 -Correct Patient Yes Yes Yes -Correct Side, Site, Position Yes Yes Yes -Correct Procedure Yes Yes Yes -Procedure Performed Yes Yes Yes -Type of Procedure Debridement Debridement Debridement -Clinical Debridement Subcutaneous Subcutaneous Subcutaneous -Tissue Removed Subcutaneous Subcutaneous Subcutaneous -Post Debridement (cm) - Length 1.3 0.9 -Post Debridement (cm) - Width 0.9 0.8 -Post Debridement (cm) - Depth 0.1 0.1 -Total Square (Post) (cm) 1.17 0.72 -Area of Debridement (cm) - Length 1.3 0.9 -Area of Debridement (cm) - Width 0.9 0.8 -Total Square (Area) (cm) 1.17 0.72 -Tunneling No No No -Undermining/Tunneling No No No -Circular Undermining No No No -Wound/Ulcer Outcome Not Healed Not Healed Not Healed -Ulcer Cleansing Rinsed/ Rinsed/ Rinsed/ Irrigated with Irrigated with Irrigated with Saline Saline Saline -Foul Odor after Cleansing No No No -Bioengineered Tissue No No No -Bleeding Controlled with Pressure Pressure,Silver Pressure,Silver Nitrate Nitrate -Treatment Response Procedure Procedure Procedure Tolerated Well Tolerated Well Tolerated Well -Assistive Device(s) Wheelchair -Debridement - Subq, 1st 20sq cm Yes Yes Yes Pain Scale: 0-10 Numeric Is Patient Pain Free? Yes Yes Yes - Nurse 3 - General Ulcer D/C NN Start: 07/18/23 08:50 Freq: Status: Active Protocol: Activity Type Activity Date Activity User E-sign Co-sign Detail Recorded Client Recorded Date Recorded By Document 07/18/23 09:48 Desktop 07/18/23 09:50 Document 07/25/23 09:22 Desktop 07/25/23 09:23 Document 08/01/23 10:06 [facility] Desktop 08/01/23 10:07 [facility] 07/18/23 07/25/23 08/01/23 09:48 09:22 10:06 Wound Care Center Nurse 3 #1 R Lat Ankle -Ulcer Cleansing Not Cleansed Not Cleansed Rinsed/ Irrigated with Saline -Foul Odor after Cleansing No No No -Primary Dressing Applied Mepilex Border, Aquacel Extra, Aquacel Extra, Promogran Mepilex Border, Mepilex Border, Promogran Promogran -Other Dressing bactroban -Other Covering drsg per rb rn -Aquacel Extra 1 1 -Mepilex Border 1 1 1 -Promogran 1 1 1 Right -Lotion applied to leg before Yes Yes Yes compression wrap -Multi-Layered Wrap Application Multi-Layer Multi-Layer Multi-Layer Comp - Right ($ Comp - Right ($ Comp - Right ($ ) ) ) -Other extra sent with applied per rb patient rn Treatment Response Procedure Tolerated Well Pain Scale: 0-10 Numeric Is Patient Pain Free? Yes Yes Yes Teaching: Wound Center Eliminating Foot Pressure -Person Taught Patient Patient -Teaching Method Discussion Discussion -Response to teaching Verbalize Verbalize understanding understanding Dressing Your Wound -Person Taught Patient Patient -Teaching Method Discussion Discussion -Response to teaching Verbalize Verbalize understanding understanding WC - Visit Discharge Discharge Condition Stable Stable Stable Ambulatory Status Wheelchair Wheelchair Wheelchair Transportation Private Auto Private Auto ecf transport Medication Reconcilliation completed & Yes Yes provided to patient/care provider Clinical Summary of Care Provided Yes Yes Facility Type [facility] Facility Assessment/Plan Assessment/Plan (1) 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: CODE(S): L97.312 - Non-pressure chronic ulcer of right ankle with fat layer exposed (2) Insulin dependent diabetes mellitus: (3) Tobacco abuse: CODE(S): Z72.0 - Tobacco use PLAN: Plan Debridement done as documented above, procedure was well-tolerated. Some improvement noted. Continue Promogran, mupirocin and foam dressing. Continue 3M for edema management. Change on Saturday at facility. Optimal protein intake. Continue other chronic wound care management and off loading. Her questions were answered and she was advised to call with any further questions or concerns. Follow up in 1 week. This note was generated with [employer] dictation software. It may contain incorrect words, spelling, and punctuation that were not noted in checking the note before signing.
== END 2023-08-14 23:59 | disposition home or self-care (01) ==
LOC: WC 09:00
PROVIDERS: PCP Internal Medicine; Referring Provider Internal Medicine; Visit Provider Internal Medicine
DX: L97.312 Non-pressure chronic ulcer of right ankle with fat layer exposed (principal); Z72.0 Tobacco use
CPT/HCPCS: 11042; 29581; 87070; 87075; 87077; 87186; 87205

== ENCOUNTER 2023-09-05 09:30 | Outpatient (RCR) | payer MEDICARE, MEDICAID, SELFPAY ==
[2023-08-15 00:54] VITALS: BP 112/60; PULSE 84; RESP 20; TEMP 35.8
[2023-08-15 08:53] VITALS: BP 128/64; PULSE 80; RESP 16; TEMP 35.5
--- NOTE | 2023-08-15 09:36 | PN.PCM_ITS ---
History of Present Illness Date of Service: 08/15/23 Chief Complaint: Non healing right ankle ulcer History of Wound: Ms. Lam is a 62-year-old who was referred to this facility due to nonhealing right lateral ankle ulcer. Noted a year ago, started out as a bullae and subsequently opened up. She states that over the years, she has had alginate and collagen dressings done at her facility without any significant improvement. History of diabetes mellitus, she is not sure of her most recent A1c but states that it has ranged from 8-13. Also history of tobacco use, smokes daily. There is significant pain around the ulcer but she denies otherwise significant leg pain. Does not wear compression. Mostly sedentary but sleeps in the bed. She feels well otherwise, no chills, fever, nausea, vomiting or change in bowel habit reported. Progress of Wound: Improvement in wound size however periwound maceration noted. No new concerns reported by the patient. Objective Data Objective Data Vital Signs: Vital Signs Temp Pulse Resp BP O2 Del Method 96 F L 80 16 128/64 H Room Air 08/15/23 08:53 08/15/23 08:53 08/15/23 08:53 08/15/23 08:53 08/15/23 08:53 Oxygen Delivery Method Room Air Charges/Coding Procedures Integumentary 111xxx-113xx: [id number] Carla subq tissue 20 sq cm/< Physical Exam Const alert, oriented x3 and no apparent distress General Appearance: cooperative, comfortable and well kempt HEENT normocephalic and head/scalp atraumatic Eyes EOMs intact bilaterally General Eye: normal appearance of both eyes Neck full ROM and supple General: normal visual inspection Resp normal respiratory effort Effort and Inspection: able to speak in complete sentences Extremity General Extremity: edema Skin Wounds: wounds noted Neuro oriented x3, CN's II-XII intact bilaterally and moves all extremities Psych mental status grossly normal, thought process normal, cooperative and affect normal Debridement Note Debridement Note Wound debrided: Right lateral foot/ankle Type of Debridement: Excisional debridement Anesthesia Used: 5% Lidocaine Gel Depth: Down to and including healthy tissue and in the subcutaneous layer Percentage of wound debrided: 100 Instrument Used: 5mm curette Tissue Removed: Slough and devitalized tissue Severity: Fat Layer Exposed Amount of bleeding with debridement: Mild Bleeding Controlled with: Pressure Patient tolerated procedure: Patient tolerated procedure well Post-Debridement Measurements and Additional Note: Post-Debridement Measurements/Treatment RUY - Nurse 1 - General Ulcer Assessment Start: 08/15/23 08:53 Freq: Status: Active Protocol: CLOVIS Activity Type Activity Date Activity User E-sign Co-sign Detail Recorded Client Recorded Date Recorded By Document 08/15/23 08:53 [facility] Desktop 08/15/23 08:59 [facility] 08/15/23 08:53 WC - Today's Visit Information Type of service Follow-up Visit (Physician/TRUST VAULT CUSTODIAN ) Arrival Mode Wheelchair Transfer Assistance None Patient Identification Verified (Name & Yes ) Patient Requires Transmission-Based No Precautions Vital Signs Temperature (97.8 F-99.1 F) 96 F L Temperature Source Temporal Pulse Rate (60-100) 80 Pulse Location Monitor Respiratory Rate (12-18) 16 Respiratory rate source Observation Oxygen Delivery Method Room Air Blood Pressure (90/60-120/80) 128/64 H Blood Pressure Mean (mm Hg) 85 Source Monitor Position Sitting Blood Pressure Location Right Arm History Since Last Visit- (Skip if this is Patient's initial visit) Have you changed medications since your No last visit? Any new allergies or adverse reactions No Had a fall/change in ADL's that may No increase risk of falls Signs or symptoms of abuse and/or No neglect since last visit Have you been in the hospital since your No last visit? Has dressing in place as prescribed Yes Has compression in place as prescribed Yes Has offloadiing in place as prescribed N/A Experienced any changes in pain level or No management Left Footwear Slipper Right Footwear Slipper Pain Scale: 0-10 Numeric Is Patient Pain Free? Yes Pham Nurse 1 - General Ulcer Measurement Start: 08/15/23 08:53 Freq: Status: Active Protocol: Activity Type Activity Date Activity User E-sign Co-sign Detail Recorded Client Recorded Date Recorded By Document 08/15/23 08:53 [facility] Desktop 08/15/23 08:59 [facility] 08/15/23 08:53 Wound Center Nurse 1 #1 R Lat Ankle -Combined with other wound No -Current Size (cm) - Length 0.9 -Current Size (cm) - Width 0.7 -Current Size (cm) - Depth 0.3 -Total Square Cm 0.63 -Date of Last Picture (Recall this 08/15/23 field) -Photo Taken Yes -Epithelialization None Present -Tunneling No -Undermining/Tunneling No -Circular Undermining No -Exudate Amt Large -Exudate Type Serosanguineous -Wound Margin Distinct, Outline Attached -Granulation Amt Medium (34-66%) -Granulation Quality Red -Slough/Fibrin Yes -Necrosis Amt Medium (34-66%) -Necrotic Tissue Type Adherent Slough -Texture (Lori-wound Skin Appearance) Assessed, Localized Edema ,Scarring -Moisture (Lori-wound Skin Appearance) Assessed, Maceration,Dry/ Scaly -Color (Lori-wound Skin Appearance) Assessed -Temperature (Lori-wound Skin No Abnormality Appearance) (Pt Warm) -Tenderness on Palpation (Lori-wound No Skin Appearance) -Ulcer Cleansing Soap and Water -Foul Odor after Cleansing No -Anesthetic Used 5% Lidocaine Gel Right Calf (cm) 34.5 Right Ankle (cm) 21.5 WC - Nurse 2 - General Ulcer CM Notes Start: 08/15/23 08:53 Freq: Status: Active Protocol: Activity Type Activity Date Activity User E-sign Co-sign Detail Recorded Client Recorded Date Recorded By Document 08/15/23 09:25 [facility] Desktop 08/15/23 09:31 GM 08/15/23 09:25 Wound Center Nurse 2 #1 R Lat Ankle -Time 09:30 -Correct Patient Yes -Correct Side, Site, Position Yes -Correct Procedure Yes -Procedure Performed Yes -Type of Procedure Debridement -Clinical Debridement Subcutaneous -Tissue Removed Subcutaneous -Post Debridement (cm) - Length 0.8 -Post Debridement (cm) - Width 0.5 -Post Debridement (cm) - Depth 0.2 -Total Square (Post) (cm) 0.40 -Area of Debridement (cm) - Length 0.8 -Area of Debridement (cm) - Width 0.5 -Total Square (Area) (cm) 0.40 -Tunneling No -Undermining/Tunneling No -Circular Undermining No -Wound/Ulcer Outcome Not Healed -Ulcer Cleansing Rinsed/ Irrigated with Saline -Foul Odor after Cleansing No -Bioengineered Tissue No -Bleeding Controlled with Pressure -Treatment Response Procedure Tolerated Well -Debridement - Subq, 1st 20sq cm Yes Pain Scale: 0-10 Numeric Is Patient Pain Free? Yes WC - Nurse 3 - General Ulcer D/C NN Start: 08/15/23 08:53 Freq: Status: Active Protocol: Activity Type Activity Date Activity User E-sign Co-sign Detail Recorded Client Recorded Date Recorded By Document 08/15/23 09:34 RB Desktop 08/15/23 09:36 RB 08/15/23 09:34 Wound Care Center Nurse 3 #1 R Lat Ankle -Primary Dressing Applied Aquacel Extra, Mepilex Border, Promogran -Other Dressing abd on to foot before 3M -Primary Dressing Covered/Secured with Dry Gauze -Aquacel Extra 1 -Mepilex Border 1 -Promogran 1 Treatment Response Procedure Tolerated Well Pain Scale: 0-10 Numeric Is Patient Pain Free? Yes WC - Visit Discharge Discharge Condition Stable Ambulatory Status Wheelchair Transportation Private Auto Medication Reconcilliation completed & No provided to patient/care provider Clinical Summary of Care Provided Yes Notes: #m applied per Yana Floyd RN Assessment/Plan Assessment/Plan (1) 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: CODE(S): L97.312 - Non-pressure chronic ulcer of right ankle with fat layer exposed (2) Insulin dependent diabetes mellitus: (3) Tobacco abuse: CODE(S): Z72.0 - Tobacco use PLAN: Plan Debridement done as documented above, procedure was well-tolerated. Some improvement noted. Continue Promogran but hold off mupirocin due to periwound maceration. Consider culture next week if needed. Continue 3M for edema management. Change on Saturday at facility. Optimal protein intake. Continue other chronic wound care management and off loading. Her questions were answered and she was advised to call with any further questions or concerns. Follow up in 1 week. This note was generated with [employer] dictation software. It may contain incorrect words, spelling, and punctuation that were not noted in checking the note before signing.
[2023-08-22 08:51] VITALS: BP 134/62; PULSE 72; RESP 18; TEMP 36.2
--- NOTE | 2023-08-22 09:28 | PCM.WC.PN ---
History of Present Illness Date of Service: 08/22/23 Chief Complaint: Non healing right ankle ulcer History of Wound: Ms. Lam is a 62-year-old who was referred to this facility due to nonhealing right lateral ankle ulcer. Noted a year ago, started out as a bullae and subsequently opened up. She states that over the years, she has had alginate and collagen dressings done at her facility without any significant improvement. History of diabetes mellitus, she is not sure of her most recent A1c but states that it has ranged from 8-13. Also history of tobacco use, smokes daily. There is significant pain around the ulcer but she denies otherwise significant leg pain. Does not wear compression. Mostly sedentary but sleeps in the bed. She feels well otherwise, no chills, fever, nausea, vomiting or change in bowel habit reported. Progress of Wound: Worsening maceration. She denies increased pain. She states the dressing changes have been done as recommended. Continues to smoke and blood glucose levels not at goal. Objective Data Objective Data Vital Signs: Vital Signs Temp Pulse Resp BP O2 Del Method 97.2 F L 72 18 134/62 H Room Air 08/22/23 08:51 08/22/23 08:51 08/22/23 08:51 08/22/23 08:51 08/15/23 08:53 Oxygen Delivery Method Room Air Charges/Coding Procedures Integumentary 111xxx-113xx: 59698 Carla subq tissue 20 sq cm/< Physical Exam Const alert, oriented x3 and no apparent distress General Appearance: cooperative, comfortable and well kempt HEENT normocephalic and head/scalp atraumatic Eyes EOMs intact bilaterally General Eye: normal appearance of both eyes Neck full ROM and supple General: normal visual inspection Resp normal respiratory effort Effort and Inspection: able to speak in complete sentences Extremity General Extremity: edema Skin Wounds: wounds noted Neuro oriented x3, CN's II-XII intact bilaterally and moves all extremities Psych mental status grossly normal, thought process normal, cooperative and affect normal Debridement Note Debridement Note Wound debrided: Right lateral foot/ankle Type of Debridement: Excisional debridement Anesthesia Used: 5% Lidocaine Gel Depth: Down to and including healthy tissue and in the subcutaneous layer Percentage of wound debrided: 100 Instrument Used: 5mm curette Tissue Removed: Slough and devitalized tissue Severity: Fat Layer Exposed Amount of bleeding with debridement: Mild Bleeding Controlled with: Pressure Patient tolerated procedure: Patient tolerated procedure well Post-Debridement Measurements and Additional Note: Post-Debridement Measurements/Treatment WC - Nurse 1 - General Ulcer Assessment Start: 08/15/23 08:53 Freq: Status: Active Protocol: CLOVIS Activity Type Activity Date Activity User E-sign Co-sign Detail Recorded Client Recorded Date Recorded By Document 08/15/23 08:53 BMF Desktop 08/15/23 08:59 BMF Document 08/22/23 08:51 DL Desktop 08/22/23 08:59 DL 08/15/23 08/22/23 08:53 08:51 WC - Today's Visit Information Type of service Follow-up Visit Follow-up Visit (Physician/ROOM SERVICE ATTENDANT (Physician/ROOM SERVICE ATTENDANT ) ) Arrival Mode Wheelchair Wheelchair Transfer Assistance None None Patient Identification Verified (Name & Yes Yes ) Patient Requires Transmission-Based No No Precautions Finger Stick Blood Sugar(mg/dl) (if 136 indicated): Blood Sugar Stated by Patient Vital Signs Temperature (97.8 F-99.1 F) 96 F L 97.2 F L Temperature Source Temporal Temporal Pulse Rate (60-100) 80 72 Pulse Location Monitor Monitor Respiratory Rate (12-18) 16 18 Respiratory rate source Observation Observation Oxygen Delivery Method Room Air Blood Pressure (90/60-120/80) 128/64 H 134/62 H Blood Pressure Mean (mm Hg) 85 86 Source Monitor Monitor Position Sitting Blood Pressure Location Right Arm History Since Last Visit- (Skip if this is Patient's initial visit) Have you changed medications since your No No last visit? Any new allergies or adverse reactions No No Had a fall/change in ADL's that may No No increase risk of falls Signs or symptoms of abuse and/or No No neglect since last visit Have you been in the hospital since your No No last visit? Has dressing in place as prescribed Yes Yes Has compression in place as prescribed Yes Yes Has offloadiing in place as prescribed N/A Yes Experienced any changes in pain level or No No management Left Footwear Slipper Right Footwear Slipper Pain Scale: 0-10 Numeric Is Patient Pain Free? Yes Yes RUY Nath Nurse 1 - General Ulcer Measurement Start: 08/15/23 08:53 Freq: Status: Active Protocol: Activity Type Activity Date Activity User E-sign Co-sign Detail Recorded Client Recorded Date Recorded By Document 08/15/23 08:53 BMF Desktop 08/15/23 08:59 BMF Document 08/22/23 08:51 DL Desktop 08/22/23 08:59 DL 08/15/23 08/22/23 08:53 08:51 Wound Center Nurse 1 #1 R Lat Ankle -Combined with other wound No -Current Size (cm) - Length 0.9 1.2 -Current Size (cm) - Width 0.7 0.7 -Current Size (cm) - Depth 0.3 0.2 -Total Square Cm 0.63 0.84 -Date of Last Picture (Recall this 08/15/23 field) -Photo Taken Yes -Epithelialization None Present -Tunneling No -Undermining/Tunneling No -Circular Undermining No -Exudate Amt Large Medium -Exudate Type Serosanguineous Serosanguineous -Wound Margin Distinct, Distinct, Outline Outline Attached Attached -Granulation Amt Medium (34-66%) Small (1-33%) -Granulation Quality Red [place] -Slough/Fibrin Yes -Necrosis Amt Medium (34-66%) Small (1-33%) -Necrotic Tissue Type Adherent Slough Adherent Slough -Structure Exposed N/A -Texture (Lori-wound Skin Appearance) Assessed, Scarring Localized Edema ,Scarring -Moisture (Lori-wound Skin Appearance) Assessed, Maceration Maceration,Dry/ Scaly -Color (Lori-wound Skin Appearance) Assessed Hemosiderin Staining -Temperature (Lori-wound Skin No Abnormality No Abnormality Appearance) (Pt Warm) (Pt Warm) -Tenderness on Palpation (Lori-wound No No Skin Appearance) -Ulcer Cleansing Soap and Water Soap and Water -Foul Odor after Cleansing No No -Anesthetic Used 5% Lidocaine 4% Lidocaine Gel Solution Right Calf (cm) 34.5 34 Right Ankle (cm) 21.5 21.5 WC - Nurse 2 - General Ulcer CM Notes Start: 08/15/23 08:53 Freq: Status: Active Protocol: Activity Type Activity Date Activity User E-sign Co-sign Detail Recorded Client Recorded Date Recorded By Document 08/15/23 09:25 Desktop 08/15/23 09:31 GM Document 08/22/23 09:14 Desktop 08/22/23 09:28 08/15/23 08/22/23 09:25 09:14 Wound Center Nurse 2 #1 R Lat Ankle -Time 09:30 09:20 -Correct Patient Yes Yes -Correct Side, Site, Position Yes Yes -Correct Procedure Yes Yes -Procedure Performed Yes Yes -Type of Procedure Debridement Debridement -Clinical Debridement Subcutaneous Subcutaneous -Tissue Removed Subcutaneous Subcutaneous -Post Debridement (cm) - Length 0.8 1.1 -Post Debridement (cm) - Width 0.5 0.8 -Post Debridement (cm) - Depth 0.2 0.2 -Total Square (Post) (cm) 0.40 0.88 -Area of Debridement (cm) - Length 0.8 1.1 -Area of Debridement (cm) - Width 0.5 0.8 -Total Square (Area) (cm) 0.40 0.88 -Tunneling No No -Undermining/Tunneling No No -Circular Undermining No No -Wound/Ulcer Outcome Not Healed Not Healed -Ulcer Cleansing Rinsed/ Rinsed/ Irrigated with Irrigated with Saline Saline -Foul Odor after Cleansing No No -Bioengineered Tissue No No -Bleeding Controlled with Pressure Pressure -Treatment Response Procedure Procedure Tolerated Well Tolerated Well -Debridement - Subq, 1st 20sq cm Yes Yes Pain Scale: 0-10 Numeric Is Patient Pain Free? Yes Yes - Nurse 3 - General Ulcer D/C NN Start: 08/15/23 08:53 Freq: Status: Active Protocol: Activity Type Activity Date Activity User E-sign Co-sign Detail Recorded Client Recorded Date Recorded By Document 08/15/23 09:34 Desktop 08/15/23 09:36 08/15/23 09:34 Wound Care Center Nurse 3 #1 R Lat Ankle -Primary Dressing Applied Aquacel Extra, Mepilex Border, Promogran -Other Dressing abd on to foot before 3M -Primary Dressing Covered/Secured with Dry Gauze -Aquacel Extra 1 -Mepilex Border 1 -Promogran 1 Treatment Response Procedure Tolerated Well Pain Scale: 0-10 Numeric Is Patient Pain Free? Yes - Visit Discharge Discharge Condition Stable Ambulatory Status Wheelchair Transportation Private Auto Medication Reconcilliation completed & No provided to patient/care provider Clinical Summary of Care Provided Yes Notes: #m applied per Yana Floyd RN Assessment/Plan Assessment/Plan (1) 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: CODE(S): L97.312 - Non-pressure chronic ulcer of right ankle with fat layer exposed (2) Insulin dependent diabetes mellitus: (3) Tobacco abuse: CODE(S): Z72.0 - Tobacco use PLAN: Plan Debridement done as documented above, procedure was well-tolerated. Worsening noted. Maceration persists despite holding off Bactroban. Cultures taken and x-ray ordered to rule out underlying osteomyelitis. Blood glucose readings and not within range, she was advised to work with her primary care physician to get this better controlled. Recommend a fasting of less than 130. Smoking cessation also very strongly recommended. For now, continue Promogran and other chronic wound care. Continue 3M for edema management. Change on Saturday at facility. Optimal protein intake. Continue other chronic wound care management and off loading. Her questions were answered and she was advised to call with any further questions or concerns. Follow up in 1 week. This note was generated with [employer] dictation software. It may contain incorrect words, spelling, and punctuation that were not noted in checking the note before signing.
--- NOTE | 2023-08-26 11:34 | WC ---
Nursing staff, Bernadette at the [facility], called this morning to confirm a faxed ATB order for pt. Pt was started on Doxy 100mg BID for 10days, I confirmed order with nurse and she read order back and reported she will get order into their system.
[2023-08-29 09:30] VITALS: BP 138/61; PULSE 71; RESP 18; TEMP 35.7
--- NOTE | 2023-08-29 10:08 | PCM.WC.PN ---
History of Present Illness Date of Service: 08/29/23 Chief Complaint: Non healing right ankle ulcer History of Wound: Ms. Lam is a 62-year-old who was referred to this facility due to nonhealing right lateral ankle ulcer. Noted a year ago, started out as a bullae and subsequently opened up. She states that over the years, she has had alginate and collagen dressings done at her facility without any significant improvement. History of diabetes mellitus, she is not sure of her most recent A1c but states that it has ranged from 8-13. Also history of tobacco use, smokes daily. There is significant pain around the ulcer but she denies otherwise significant leg pain. Does not wear compression. Mostly sedentary but sleeps in the bed. She feels well otherwise, no chills, fever, nausea, vomiting or change in bowel habit reported. Progress of Wound: Cultures grew MRSA, negative anaerobic. Culture done at facility per report, negative for osteomyelitis. Has had 2 days of antibiotics, reports increased pain/burning. Less maceration appreciated today. Objective Data Objective Data Vital Signs: Vital Signs Temp Pulse Resp BP O2 Del Method 96.2 F L 71 18 138/61 H Room Air 08/29/23 09:30 08/29/23 09:30 08/29/23 09:30 08/29/23 09:30 08/15/23 08:53 Oxygen Delivery Method Room Air Lab / Micro Data Micro: Microbiology 08/22/23 09:30 Wound - Ankle Gram Stain - Final 08/22/23 09:30 Wound - Ankle Wound Culture - Final Meth. resistant Staph. aureus 08/22/23 09:30 Wound - Ankle Anaerobic Culture - Final No anaerobic bacteria isolated. Charges/Coding Procedures Integumentary 111xxx-113xx: 12563 Carla subq tissue 20 sq cm/< Physical Exam Const alert, oriented x3 and no apparent distress General Appearance: cooperative, comfortable and well kempt HEENT normocephalic and head/scalp atraumatic Eyes EOMs intact bilaterally General Eye: normal appearance of both eyes Neck full ROM and supple General: normal visual inspection Resp normal respiratory effort Effort and Inspection: able to speak in complete sentences Extremity General Extremity: edema Skin Wounds: wounds noted Neuro oriented x3, CN's II-XII intact bilaterally and moves all extremities Psych mental status grossly normal, thought process normal, cooperative and affect normal Debridement Note Debridement Note Wound debrided: Right lateral foot/ankle Type of Debridement: Excisional debridement Anesthesia Used: 5% Lidocaine Gel Depth: Down to and including healthy tissue and in the subcutaneous layer Percentage of wound debrided: 100 Instrument Used: 5mm curette Tissue Removed: Slough and devitalized tissue Severity: Fat Layer Exposed Amount of bleeding with debridement: Mild Bleeding Controlled with: Pressure Patient tolerated procedure: Patient tolerated procedure well Post-Debridement Measurements and Additional Note: Post-Debridement Measurements/Treatment - Nurse 1 - General Ulcer Assessment Start: 08/15/23 08:53 Freq: Status: Active Protocol: [email or web address].[email or web address] Activity Type Activity Date Activity User E-sign Co-sign Detail Recorded Client Recorded Date Recorded By Document 08/15/23 08:53 BMF Desktop 08/15/23 08:59 BMF Document 08/22/23 08:51 DL Desktop 08/22/23 08:59 DL Document 08/29/23 09:30 BMF Desktop 08/29/23 09:34 BMF 08/15/23 08/22/23 08/29/23 08:53 08:51 09:30 - Today's Visit Information Type of service Follow-up Visit Follow-up Visit Follow-up Visit (Physician/AUTO ADJUDICATION SPECIALIST (Physician/AUTO ADJUDICATION SPECIALIST (Physician/AUTO ADJUDICATION SPECIALIST ) ) ) Arrival Mode Wheelchair Wheelchair Wheelchair Transfer Assistance None None None Patient Identification Verified (Name & Yes Yes Yes ) Patient Requires Transmission-Based No No No Precautions Finger Stick Blood Sugar(mg/dl) (if 136 97 indicated): Blood Sugar Stated by Stated by Patient Patient Vital Signs Temperature (97.8 F-99.1 F) 96 F L 97.2 F L 96.2 F L Temperature Source Temporal Temporal Temporal Pulse Rate (60-100) 80 72 71 Pulse Location Monitor Monitor Monitor Respiratory Rate (12-18) 16 18 18 Respiratory rate source Observation Observation Observation Oxygen Delivery Method Room Air Blood Pressure (90/60-120/80) 128/64 H 134/62 H 138/61 H Blood Pressure Mean (mm Hg) 85 86 86 Source Monitor Monitor Monitor Position Sitting Sitting Blood Pressure Location Right Arm Left Arm History Since Last Visit- (Skip if this is Patient's initial visit) Have you changed medications since your No No No last visit? Any new allergies or adverse reactions No No No Had a fall/change in ADL's that may No No No increase risk of falls Signs or symptoms of abuse and/or No No No neglect since last visit Have you been in the hospital since your No No No last visit? Has dressing in place as prescribed Yes Yes Yes Has compression in place as prescribed Yes Yes Yes Has offloadiing in place as prescribed N/A Yes No Experienced any changes in pain level or No No No management Left Footwear Slipper Right Footwear Slipper Pain Scale: 0-10 Numeric Is Patient Pain Free? Yes Yes No RLE -Description Sharp -Intensity 9 -Duration (hours) Acute -Pain Behavior Withdrawal from Touch -Pain Aggravating Factors Changing Position -Alleviating Factors/Interventions Medicate when due -Effectiveness of Alleviating Factor/ Moderately Intervention effective WC - Nurse 1 - General Ulcer Measurement Start: 08/15/23 08:53 Freq: Status: Active Protocol: Activity Type Activity Date Activity User E-sign Co-sign Detail Recorded Client Recorded Date Recorded By Document 08/15/23 08:53 BM [employer] 08/15/23 08:59 BMF Document 08/22/23 08:51 DL Desktop 08/22/23 08:59 DL Document 08/29/23 09:30 BMF Desktop 08/29/23 09:34 BMF 08/15/23 08/22/23 08/29/23 08:53 08:51 09:30 Wound Center Nurse 1 #1 R Lat Ankle -Combined with other wound No No -Current Size (cm) - Length 0.9 1.2 0.7 -Current Size (cm) - Width 0.7 0.7 0.4 -Current Size (cm) - Depth 0.3 0.2 0.1 -Total Square Cm 0.63 0.84 0.28 -Date of Last Picture (Recall this 08/15/23 field) -Photo Taken Yes Yes -Epithelialization None Present -Tunneling No No -Undermining/Tunneling No No -Circular Undermining No No -Exudate Amt Large Medium Medium -Exudate Type Serosanguineous Serosanguineous Serosanguineous -Wound Margin Distinct, Distinct, Distinct, Outline Outline Outline Attached Attached Attached -Granulation Amt Medium (34-66%) Small (1-33%) Medium (34-66%) -Granulation Quality Red [place] -Slough/Fibrin Yes Yes -Necrosis Amt Medium (34-66%) Small (1-33%) Medium (34-66%) -Necrotic Tissue Type Adherent Slough Adherent Slough Adherent Slough -Structure Exposed N/A N/A -Texture (Lori-wound Skin Appearance) Assessed, Scarring Assessed Localized Edema ,Scarring -Moisture (Lori-wound Skin Appearance) Assessed, Maceration Assessed Maceration,Dry/ Scaly -Color (Lori-wound Skin Appearance) Assessed Hemosiderin Assessed Staining -Temperature (Lori-wound Skin No Abnormality No Abnormality No Abnormality Appearance) (Pt Warm) (Pt Warm) (Pt Warm) -Tenderness on Palpation (Lori-wound No No No Skin Appearance) -Ulcer Cleansing Soap and Water Soap and Water Wound Cleanser -Foul Odor after Cleansing No No No -Anesthetic Used 5% Lidocaine 4% Lidocaine 5% Lidocaine Gel Solution Gel Lower Limb Edema Present Yes Right Calf (cm) 34.5 34 33.1 Right Ankle (cm) 21.5 21.5 21.2 WC - Nurse 2 - General Ulcer CM Notes Start: 08/15/23 08:53 Freq: Status: Active Protocol: Activity Type Activity Date Activity User E-sign Co-sign Detail Recorded Client Recorded Date Recorded By Document 08/15/23 09:25 [employer] Desktop 08/15/23 09:31 GM Document 08/22/23 09:14 GM Desktop 08/22/23 09:28 GM Document 08/29/23 09:47 Desktop 08/29/23 09:49 GM 08/15/23 08/22/23 08/29/23 09:25 09:14 09:47 Wound Center Nurse 2 #1 R Lat Ankle -Time 09:30 09:20 09:47 -Correct Patient Yes Yes Yes -Correct Side, Site, Position Yes Yes Yes -Correct Procedure Yes Yes Yes -Procedure Performed Yes Yes Yes -Type of Procedure Debridement Debridement Debridement -Clinical Debridement Subcutaneous Subcutaneous Subcutaneous -Tissue Removed Subcutaneous Subcutaneous Subcutaneous -Post Debridement (cm) - Length 0.8 1.1 0.8 -Post Debridement (cm) - Width 0.5 0.8 0.6 -Post Debridement (cm) - Depth 0.2 0.2 0.2 -Total Square (Post) (cm) 0.40 0.88 0.48 -Area of Debridement (cm) - Length 0.8 1.1 0.8 -Area of Debridement (cm) - Width 0.5 0.8 0.6 -Total Square (Area) (cm) 0.40 0.88 0.48 -Tunneling No No No -Undermining/Tunneling No No No -Circular Undermining No No No -Wound/Ulcer Outcome Not Healed Not Healed Not Healed -Ulcer Cleansing Rinsed/ Rinsed/ Rinsed/ Irrigated with Irrigated with Irrigated with Saline Saline Saline -Foul Odor after Cleansing No No No -Bioengineered Tissue No No No -Bleeding Controlled with Pressure Pressure Pressure,Silver Nitrate, SURGIFOAM -Treatment Response Procedure Procedure Procedure Not Tolerated Well Tolerated Well Tolerated Well -Offloading No -Debridement - Subq, 1st 20sq cm Yes Yes Yes Pain Scale: 0-10 Numeric Is Patient Pain Free? Yes Yes No RLE -Description Sharp -Intensity 8 -Duration (hours) during debridement -Pain Behavior Moaning -Alleviating Factors/Interventions Medication,Will continue to monitor WC - Nurse 3 - General Ulcer D/C NN Start: 08/15/23 08:53 Freq: Status: Active Protocol: Activity Type Activity Date Activity User E-sign Co-sign Detail Recorded Client Recorded Date Recorded By Document 08/15/23 09:34 RB Desktop 08/15/23 09:36 RB Document 08/22/23 09:28 Desktop 08/22/23 09:29 Document 08/29/23 09:54 RB Desktop 08/29/23 09:56 RB 08/15/23 08/22/23 08/29/23 09:34 09:28 09:54 Wound Care Center Nurse 3 #1 R Lat Ankle -Ulcer Cleansing Not Cleansed Rinsed/ Irrigated with Saline -Foul Odor after Cleansing No -Primary Dressing Applied Aquacel Extra, Aquacel Extra, Aquacel Extra, Mepilex Border, Mepilex Border, Mepilex Border, Promogran Promogran Promogran -Other Dressing abd on to foot before 3M -Primary Dressing Covered/Secured with Dry Gauze -Aquacel Extra 1 1 1 -Mepilex Border 1 1 1 -Promogran 1 1 1 Right -Multi-Layered Wrap Application Multi-Layer Comp - Right ($ ) Treatment Response Procedure Procedure Tolerated Well Tolerated Well Pain Scale: 0-10 Numeric Is Patient Pain Free? Yes Yes No Teaching: Wound Center Dressing Your Wound -Person Taught Patient Patient -Teaching Method Discussion Discussion, Demonstration -Response to teaching Verbalize Verbalize understanding understanding WC - Visit Discharge Discharge Condition Stable Stable Stable Ambulatory Status Wheelchair Wheelchair Wheelchair Transportation Private Auto Private Auto gillcrest Medication Reconcilliation completed & No Yes No provided to patient/care provider Clinical Summary of Care Provided Yes Yes Yes Notes: #m applied per Yana Floyd assited with RN dressing & 3M wraps Assessment/Plan Assessment/Plan (1) 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: CODE(S): L97.312 - Non-pressure chronic ulcer of right ankle with fat layer exposed (2) Insulin dependent diabetes mellitus: (3) Tobacco abuse: CODE(S): Z72.0 - Tobacco use PLAN: Plan Debridement done as documented above, procedure was well-tolerated. Less maceration however, pain persists. Has had just 2 days of antibiotics. X-ray report from facility reviewed, negative for osteomyelitis. Continue antibiotics until next visit, if pain persist, would recommend higher level imaging to definitively rule out osteomyelitis due to increased pain. For now, continue Promogran and other chronic wound care. Continue 3M for edema management. Change on Saturday at facility. Optimal protein intake. Continue other chronic wound care management and off loading. Her questions were answered and she was advised to call with any further questions or concerns. Follow up in 1 week. This note was generated with [employer] dictation software. It may contain incorrect words, spelling, and punctuation that were not noted in checking the note before signing.
[2023-09-05 09:29] VITALS: BP 132/65; PULSE 77; RESP 18; TEMP 35.7
--- NOTE | 2023-09-05 09:58 | PN.PCM_ITS ---
History of Present Illness Date of Service: 09/05/23 Chief Complaint: Non healing right ankle ulcer History of Wound: Ms. Lam is a 62-year-old who was referred to this facility due to nonhealing right lateral ankle ulcer. Noted a year ago, started out as a bullae and subsequently opened up. She states that over the years, she has had alginate and collagen dressings done at her facility without any significant improvement. History of diabetes mellitus, she is not sure of her most recent A1c but states that it has ranged from 8-13. Also history of tobacco use, smokes daily. There is significant pain around the ulcer but she denies otherwise significant leg pain. Does not wear compression. Mostly sedentary but sleeps in the bed. She feels well otherwise, no chills, fever, nausea, vomiting or change in bowel habit reported. Progress of Wound: No new concerns at this time. Has completed antibiotics. Some improvement noted. Less maceration. Objective Data Objective Data Vital Signs: Vital Signs Temp Pulse Resp BP O2 Del Method 96.3 F L 77 18 132/65 H Room Air 09/05/23 09:29 09/05/23 09:29 09/05/23 09:29 09/05/23 09:29 08/15/23 08:53 Oxygen Delivery Method Room Air Lab / Micro Data Micro: Microbiology 08/22/23 09:30 Wound - Ankle Gram Stain - Final 08/22/23 09:30 Wound - Ankle Wound Culture - Final Meth. resistant Staph. aureus 08/22/23 09:30 Wound - Ankle Anaerobic Culture - Final No anaerobic bacteria isolated. Charges/Coding Procedures Integumentary [id number]: [id number] Carla subq tissue 20 sq cm/< Physical Exam Const alert, oriented x3 and no apparent distress General Appearance: cooperative, comfortable and well kempt HEENT normocephalic and head/scalp atraumatic Eyes EOMs intact bilaterally General Eye: normal appearance of both eyes Neck full ROM and supple General: normal visual inspection Resp normal respiratory effort Effort and Inspection: able to speak in complete sentences Extremity General Extremity: edema Skin Wounds: wounds noted Neuro oriented x3, CN's II-XII intact bilaterally and moves all extremities Psych mental status grossly normal, thought process normal, cooperative and affect normal Debridement Note Debridement Note Wound debrided: Right lateral foot/ankle Type of Debridement: Excisional debridement Anesthesia Used: 5% Lidocaine Gel Depth: Down to and including healthy tissue and in the subcutaneous layer Percentage of wound debrided: 100 Instrument Used: 5mm curette Tissue Removed: Slough and devitalized tissue Severity: Fat Layer Exposed Amount of bleeding with debridement: Mild Bleeding Controlled with: Pressure Patient tolerated procedure: Patient tolerated procedure well Post-Debridement Measurements and Additional Note: Post-Debridement Measurements/Treatment - Nurse 1 - General Ulcer Assessment Start: 08/15/23 08:53 Freq: Status: Active Protocol: CLOVIS Activity Type Activity Date Activity User E-sign Co-sign Detail Recorded Client Recorded Date Recorded By Document 08/15/23 08:53 BMF Desktop 08/15/23 08:59 BMF Document 08/22/23 08:51 DL Desktop 08/22/23 08:59 DL Document 08/29/23 09:30 BMF Desktop 08/29/23 09:34 BMF Document 09/05/23 09:29 RB Desktop 09/05/23 09:32 RB 08/15/23 08/22/23 08/29/23 08:53 08:51 09:30 - Today's Visit Information Type of service Follow-up Visit Follow-up Visit Follow-up Visit (Physician/[facility] (Physician/[employer] (Physician/[employer] ) ) ) Arrival Mode Wheelchair Wheelchair Wheelchair Transfer Assistance None None None Patient Identification Verified (Name & Yes Yes Yes ) Patient Requires Transmission-Based No No No Precautions Finger Stick Blood Sugar(mg/dl) (if 136 97 indicated): Blood Sugar Stated by Stated by Patient Patient Vital Signs Temperature (97.8 F-99.1 F) 96 F L 97.2 F L 96.2 F L Temperature Source Temporal Temporal Temporal Pulse Rate (60-100) 80 72 71 Pulse Location Monitor Monitor Monitor Respiratory Rate (12-18) 16 18 18 Respiratory rate source Observation Observation Observation Oxygen Delivery Method Room Air Blood Pressure (90/60-120/80) 128/64 H 134/62 H 138/61 H Blood Pressure Mean (mm Hg) 85 86 86 Source Monitor Monitor Monitor Position Sitting Sitting Blood Pressure Location Right Arm Left Arm History Since Last Visit- (Skip if this is Patient's initial visit) Have you changed medications since your No No No last visit? Any new allergies or adverse reactions No No No Had a fall/change in ADL's that may No No No increase risk of falls Signs or symptoms of abuse and/or No No No neglect since last visit Have you been in the hospital since your No No No last visit? Has dressing in place as prescribed Yes Yes Yes Has compression in place as prescribed Yes Yes Yes Has offloadiing in place as prescribed N/A Yes No Experienced any changes in pain level or No No No management Left Footwear Slipper Right Footwear Slipper Pain Scale: 0-10 Numeric Is Patient Pain Free? Yes Yes No RLE -Description Sharp -Intensity 9 -Duration (hours) Acute -Pain Behavior Withdrawal from Touch -Pain Aggravating Factors Changing Position -Alleviating Factors/Interventions Medicate when due -Effectiveness of Alleviating Factor/ Moderately Intervention effective 09/05/23 09:29 WC - Today's Visit Information Type of service Follow-up Visit (Physician/[facility] [facility] ) Arrival Mode Wheelchair Transfer Assistance None Patient Identification Verified (Name & Yes ) Patient Requires Transmission-Based No Precautions Finger Stick Blood Sugar(mg/dl) (if indicated): Blood Sugar Vital Signs Temperature (97.8 F-99.1 F) 96.3 F L Temperature Source Temporal Pulse Rate (60-100) 77 Pulse Location Monitor Respiratory Rate (12-18) 18 Respiratory rate source Observation Oxygen Delivery Method Blood Pressure (90/60-120/80) 132/65 H Blood Pressure Mean (mm Hg) 87 Source Monitor Position Semi-Fowlers Blood Pressure Location Left Arm History Since Last Visit- (Skip if this is Patient's initial visit) Have you changed medications since your No last visit? Any new allergies or adverse reactions No Had a fall/change in ADL's that may No increase risk of falls Signs or symptoms of abuse and/or No neglect since last visit Have you been in the hospital since your No last visit? Has dressing in place as prescribed Yes Has compression in place as prescribed Yes Has offloadiing in place as prescribed No Experienced any changes in pain level or No management Left Footwear Right Footwear Pain Scale: 0-10 Numeric Is Patient Pain Free? Yes RLE -Description -Intensity -Duration (hours) -Pain Behavior -Pain Aggravating Factors -Alleviating Factors/Interventions -Effectiveness of Alleviating Factor/ Intervention - Nurse 1 - General Ulcer Measurement Start: 08/15/23 08:53 Freq: Status: Active Protocol: Activity Type Activity Date Activity User E-sign Co-sign Detail Recorded Client Recorded Date Recorded By Document 08/15/23 08:53 BMF Desktop 08/15/23 08:59 BMF Document 08/22/23 08:51 DL Desktop 08/22/23 08:59 DL Document 08/29/23 09:30 BMF Desktop 08/29/23 09:34 BMF Document 09/05/23 09:29 RB Desktop 09/05/23 09:32 RB 08/15/23 08/22/23 08/29/23 08:53 08:51 09:30 Wound Center Nurse 1 #1 R Lat Ankle -Combined with other wound No No -Current Size (cm) - Length 0.9 1.2 0.7 -Current Size (cm) - Width 0.7 0.7 0.4 -Current Size (cm) - Depth 0.3 0.2 0.1 -Total Square Cm 0.63 0.84 0.28 -Date of Last Picture (Recall this 08/15/23 field) -Photo Taken Yes Yes -Epithelialization None Present -Tunneling No No -Undermining/Tunneling No No -Circular Undermining No No -Exudate Amt Large Medium Medium -Exudate Type Serosanguineous Serosanguineous Serosanguineous -Wound Margin Distinct, Distinct, Distinct, Outline Outline Outline Attached Attached Attached -Granulation Amt Medium (34-66%) Small (1-33%) Medium (34-66%) -Granulation Quality Red Darby Darby -Slough/Fibrin Yes Yes -Necrosis Amt Medium (34-66%) Small (1-33%) Medium (34-66%) -Necrotic Tissue Type Adherent Slough Adherent Slough Adherent Slough -Structure Exposed N/A N/A -Texture (Lori-wound Skin Appearance) Assessed, Scarring Assessed Localized Edema ,Scarring -Moisture (Lori-wound Skin Appearance) Assessed, Maceration Assessed Maceration,Dry/ Scaly -Color (Lori-wound Skin Appearance) Assessed Hemosiderin Assessed Staining -Temperature (Lori-wound Skin No Abnormality No Abnormality No Abnormality Appearance) (Pt Warm) (Pt Warm) (Pt Warm) -Tenderness on Palpation (Lori-wound No No No Skin Appearance) -Ulcer Cleansing Soap and Water Soap and Water Wound Cleanser -Foul Odor after Cleansing No No No -Anesthetic Used 5% Lidocaine 4% Lidocaine 5% Lidocaine Gel Solution Gel Lower Limb Edema Present Yes Right Calf (cm) 34.5 34 33.1 Right Ankle (cm) 21.5 21.5 21.2 09/05/23 09:29 Wound Center Nurse 1 #1 R Lat Ankle -Combined with other wound No -Current Size (cm) - Length 0.8 -Current Size (cm) - Width 0.3 -Current Size (cm) - Depth 0.2 -Total Square Cm 0.24 -Date of Last Picture (Recall this field) -Photo Taken Yes -Epithelialization -Tunneling No -Undermining/Tunneling No -Circular Undermining No -Exudate Amt Large -Exudate Type Serosanguineous -Wound Margin Distinct, Outline Attached -Granulation Amt Medium (34-66%) -Granulation Quality Darby -Slough/Fibrin Yes -Necrosis Amt Medium (34-66%) -Necrotic Tissue Type Adherent Slough -Structure Exposed N/A -Texture (Lori-wound Skin Appearance) Assessed -Moisture (Lori-wound Skin Appearance) Maceration -Color (Lori-wound Skin Appearance) Assessed -Temperature (Lori-wound Skin No Abnormality Appearance) (Pt Warm) -Tenderness on Palpation (Lori-wound No Skin Appearance) -Ulcer Cleansing Wound Cleanser -Foul Odor after Cleansing No -Anesthetic Used 5% Lidocaine Gel Lower Limb Edema Present Yes Right Calf (cm) 33.6 Right Ankle (cm) 21 - Nurse 2 - General Ulcer CM Notes Start: 08/15/23 08:53 Freq: Status: Active Protocol: Activity Type Activity Date Activity User E-sign Co-sign Detail Recorded Client Recorded Date Recorded By Document 08/15/23 09:25 Desktop 08/15/23 09:31 Document 08/22/23 09:14 Desktop 08/22/23 09:28 Document 08/29/23 09:47 Desktop 08/29/23 09:49 Document 09/05/23 09:48 Desktop 09/05/23 09:52 08/15/23 08/22/23 08/29/23 09:25 09:14 09:47 Wound Center Nurse 2 #1 R Lat Ankle -Time 09:30 09:20 09:47 -Correct Patient Yes Yes Yes -Correct Side, Site, Position Yes Yes Yes -Correct Procedure Yes Yes Yes -Procedure Performed Yes Yes Yes -Type of Procedure Debridement Debridement Debridement -Clinical Debridement Subcutaneous Subcutaneous Subcutaneous -Tissue Removed Subcutaneous Subcutaneous Subcutaneous -Post Debridement (cm) - Length 0.8 1.1 0.8 -Post Debridement (cm) - Width 0.5 0.8 0.6 -Post Debridement (cm) - Depth 0.2 0.2 0.2 -Total Square (Post) (cm) 0.40 0.88 0.48 -Area of Debridement (cm) - Length 0.8 1.1 0.8 -Area of Debridement (cm) - Width 0.5 0.8 0.6 -Total Square (Area) (cm) 0.40 0.88 0.48 -Tunneling No No No -Undermining/Tunneling No No No -Circular Undermining No No No -Wound/Ulcer Outcome Not Healed Not Healed Not Healed -Ulcer Cleansing Rinsed/ Rinsed/ Rinsed/ Irrigated with Irrigated with Irrigated with Saline Saline Saline -Foul Odor after Cleansing No No No -Bioengineered Tissue No No No -Bleeding Controlled with Pressure Pressure Pressure,Silver Nitrate, SURGIFOAM -Treatment Response Procedure Procedure Procedure Not Tolerated Well Tolerated Well Tolerated Well -Offloading No -Debridement - Subq, 1st 20sq cm Yes Yes Yes Pain Scale: 0-10 Numeric Is Patient Pain Free? Yes Yes No RLE -Description Sharp -Intensity 8 -Duration (hours) during debridement -Pain Behavior Moaning -Alleviating Factors/Interventions Medication,Will continue to monitor 09/05/23 09:48 Wound Center Nurse 2 #1 R Lat Ankle -Time 09:49 -Correct Patient Yes -Correct Side, Site, Position Yes -Correct Procedure Yes -Procedure Performed Yes -Type of Procedure Debridement -Clinical Debridement Subcutaneous -Tissue Removed Subcutaneous -Post Debridement (cm) - Length 0.7 -Post Debridement (cm) - Width 0.4 -Post Debridement (cm) - Depth 0.2 -Total Square (Post) (cm) 0.28 -Area of Debridement (cm) - Length 0.7 -Area of Debridement (cm) - Width 0.4 -Total Square (Area) (cm) 0.28 -Tunneling No -Undermining/Tunneling No -Circular Undermining No -Wound/Ulcer Outcome Not Healed -Ulcer Cleansing Rinsed/ Irrigated with Saline -Foul Odor after Cleansing No -Bioengineered Tissue No -Bleeding Controlled with Pressure -Treatment Response Procedure Tolerated Well -Offloading -Debridement - Subq, 1st 20sq cm Yes Pain Scale: 0-10 Numeric Is Patient Pain Free? Yes RLE -Description -Intensity -Duration (hours) -Pain Behavior -Alleviating Factors/Interventions WC - Nurse 3 - General Ulcer D/C NN Start: 08/15/23 08:53 Freq: Status: Active Protocol: Activity Type Activity Date Activity User E-sign Co-sign Detail Recorded Client Recorded Date Recorded By Document 08/15/23 09:34 RB Desktop 08/15/23 09:36 RB Document 08/22/23 09:28 GM Desktop 08/22/23 09:29 GM Document 08/29/23 09:54 RB Desktop 08/29/23 09:56 RB 08/15/23 08/22/23 08/29/23 09:34 09:28 09:54 Wound Care Center Nurse 3 #1 R Lat Ankle -Ulcer Cleansing Not Cleansed Rinsed/ Irrigated with Saline -Foul Odor after Cleansing No -Primary Dressing Applied Aquacel Extra, Aquacel Extra, Aquacel Extra, Mepilex Border, Mepilex Border, Mepilex Border, Promogran Promogran Promogran -Other Dressing abd on to foot before 3M -Primary Dressing Covered/Secured with Dry Gauze -Aquacel Extra 1 1 1 -Mepilex Border 1 1 1 -Promogran 1 1 1 Right -Multi-Layered Wrap Application Multi-Layer Comp - Right ($ ) Treatment Response Procedure Procedure Tolerated Well Tolerated Well Pain Scale: 0-10 Numeric Is Patient Pain Free? Yes Yes No Teaching: Wound Center Dressing Your Wound -Person Taught Patient Patient -Teaching Method Discussion Discussion, Demonstration -Response to teaching Verbalize Verbalize understanding understanding WC - Visit Discharge Discharge Condition Stable Stable Stable Ambulatory Status Wheelchair Wheelchair Wheelchair Transportation Private Auto Private Auto gill[place] Medication Reconcilliation completed & No Yes No provided to patient/care provider Clinical Summary of Care Provided Yes Yes Yes Notes: #m applied per Yana Floyd assited with RN dressing & 3M wraps Assessment/Plan Assessment/Plan (1) 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: CODE(S): L97.312 - Non-pressure chronic ulcer of right ankle with fat layer exposed (2) Insulin dependent diabetes mellitus: (3) Tobacco abuse: CODE(S): Z72.0 - Tobacco use PLAN: Plan Debridement done as documented above, procedure was well-tolerated. Ulcer with some improvement. Less maceration and improvement in size. Continue Doxycycline for 1 more week. Continue Promogran and other chronic wound care. Continue 3M for edema management. Change on Saturday and Saturday at facility. Optimal protein intake. Continue other chronic wound care management and off loading. Her questions were answered and she was advised to call with any further questions or concerns. Follow up in 1 week. This note was generated with [employer] dictation software. It may contain incorrect words, spelling, and punctuation that were not noted in checking the note before signing.
== END 2023-09-12 23:59 | disposition home or self-care (01) ==
LOC: WC 09:30
PROVIDERS: PCP Internal Medicine; Referring Provider Internal Medicine; Visit Provider Internal Medicine
DX: L97.312 Non-pressure chronic ulcer of right ankle with fat layer exposed (principal); Z72.0 Tobacco use
CPT/HCPCS: 11042; 29581; 87070; 87075; 87077; 87186; 87205

== ENCOUNTER 2023-10-10 09:45 | Outpatient (RCR) | payer MEDICARE, MEDICAID, SELFPAY ==
[2023-09-13 00:18] VITALS: BP 132/65; PULSE 77; RESP 18; TEMP 35.7
[2023-09-19 09:30] VITALS: BP 138/66; PULSE 71; RESP 18; TEMP 35.7
--- NOTE | 2023-09-19 10:05 | PN.PCM_ITS ---
History of Present Illness Date of Service: 09/19/23 Chief Complaint: Non healing right ankle ulcer History of Wound: Ms. Lam is a 62-year-old who was referred to this facility due to nonhealing right lateral ankle ulcer. Noted a year ago, started out as a bullae and subsequently opened up. She states that over the years, she has had alginate and collagen dressings done at her facility without any significant improvement. History of diabetes mellitus, she is not sure of her most recent A1c but states that it has ranged from 8-13. Also history of tobacco use, smokes daily. There is significant pain around the ulcer but she denies otherwise significant leg pain. Does not wear compression. Mostly sedentary but sleeps in the bed. She feels well otherwise, no chills, fever, nausea, vomiting or change in bowel habit reported. Progress of Wound: No new concerns at this time. No significant maceration appreciated. Stable ulcer. Objective Data Objective Data Vital Signs: Vital Signs Temp Pulse Resp BP 96.3 F L 71 18 138/66 H 09/19/23 09:30 09/19/23 09:30 09/19/23 09:30 09/19/23 09:30 Charges/Coding Procedures Integumentary 111xxx-113xx: [id number] Carla subq tissue 20 sq cm/< Physical Exam Const alert, oriented x3 and no apparent distress General Appearance: cooperative, comfortable and well kempt HEENT normocephalic and head/scalp atraumatic Eyes EOMs intact bilaterally General Eye: normal appearance of both eyes Neck full ROM and supple General: normal visual inspection Resp normal respiratory effort Effort and Inspection: able to speak in complete sentences Extremity General Extremity: edema Skin Wounds: wounds noted Neuro oriented x3, CN's II-XII intact bilaterally and moves all extremities Psych mental status grossly normal, thought process normal, cooperative and affect normal Debridement Note Debridement Note Wound debrided: Right lateral foot/ankle Type of Debridement: Excisional debridement Anesthesia Used: 5% Lidocaine Gel Depth: Down to and including healthy tissue and in the subcutaneous layer Percentage of wound debrided: 100 Instrument Used: 3mm curette Tissue Removed: Slough and devitalized tissue Severity: Fat Layer Exposed Amount of bleeding with debridement: Mild Bleeding Controlled with: Pressure Patient tolerated procedure: Patient tolerated procedure well Post-Debridement Measurements and Additional Note: Post-Debridement Measurements/Treatment WC - Nurse 1 - General Ulcer Assessment Start: 09/19/23 09:30 Freq: Status: Active Protocol: CLOVIS Activity Type Activity Date Activity User E-sign Co-sign Detail Recorded Client Recorded Date Recorded By Document 09/19/23 09:30 RB Desktop 09/19/23 09:32 RB 09/19/23 09:30 WC - Today's Visit Information Type of service Follow-up Visit (Physician/[employer] ) Arrival Mode Wheelchair Transfer Assistance None Patient Identification Verified (Name & Yes ) Patient Requires Transmission-Based No Precautions Vital Signs Temperature (97.8 F-99.1 F) 96.3 F L Temperature Source Temporal Pulse Rate (60-100) 71 Pulse Location Monitor Respiratory Rate (12-18) 18 Respiratory rate source Observation Blood Pressure (90/60-120/80) 138/66 H Blood Pressure Mean (mm Hg) 90 Source Monitor Position Sitting Blood Pressure Location Right Arm History Since Last Visit- (Skip if this is Patient's initial visit) Have you changed medications since your No last visit? Any new allergies or adverse reactions No Had a fall/change in ADL's that may No increase risk of falls Signs or symptoms of abuse and/or No neglect since last visit Have you been in the hospital since your No last visit? Has dressing in place as prescribed Yes Has compression in place as prescribed Yes Has offloadiing in place as prescribed No Experienced any changes in pain level or No management Pain Scale: 0-10 Numeric Is Patient Pain Free? Yes - Nurse 1 - General Ulcer Measurement Start: 09/19/23 09:30 Freq: Status: Active Protocol: Activity Type Activity Date Activity User E-sign Co-sign Detail Recorded Client Recorded Date Recorded By Document 09/19/23 09:30 RB Desktop 09/19/23 09:32 RB 09/19/23 09:30 Wound Center Nurse 1 #1 R Lat Ankle -Combined with other wound No -Current Size (cm) - Length 0.1 -Current Size (cm) - Width 0.1 -Current Size (cm) - Depth 0.1 -Total Square Cm 0.01 -Tunneling No -Undermining/Tunneling No -Circular Undermining No -Exudate Amt Medium -Exudate Type Serosanguineous -Wound Margin Thickened & Rolled Under -Granulation Amt Medium (34-66%) -Granulation Quality Gail -Slough/Fibrin Yes -Necrosis Amt Medium (34-66%) -Necrotic Tissue Type Adherent Slough -Structure Exposed N/A -Texture (Lori-wound Skin Appearance) Assessed -Moisture (Lori-wound Skin Appearance) Assessed -Color (Lori-wound Skin Appearance) Assessed, Hemosiderin Staining -Temperature (Lori-wound Skin No Abnormality Appearance) (Pt Warm) -Tenderness on Palpation (Lori-wound No Skin Appearance) -Ulcer Cleansing Wound Cleanser -Foul Odor after Cleansing No -Anesthetic Used 5% Lidocaine Gel Lower Limb Edema Present Yes Right Calf (cm) 34.5 Right Ankle (cm) 21.5 WC - Nurse 2 - General Ulcer CM Notes Start: 09/19/23 09:30 Freq: Status: Active Protocol: Activity Type Activity Date Activity User E-sign Co-sign Detail Recorded Client Recorded Date Recorded By Document 09/19/23 09:53 GM Desktop 09/19/23 09:59 GM 09/19/23 09:53 Wound Center Nurse 2 #1 R Lat Ankle -Time 09:53 -Correct Patient Yes -Correct Side, Site, Position Yes -Correct Procedure Yes -Procedure Performed Yes -Type of Procedure Debridement -Clinical Debridement Subcutaneous -Tissue Removed Subcutaneous -Post Debridement (cm) - Length 0.7 -Post Debridement (cm) - Width 0.5 -Post Debridement (cm) - Depth 0.2 -Total Square (Post) (cm) 0.35 -Area of Debridement (cm) - Length 0.7 -Area of Debridement (cm) - Width 0.5 -Total Square (Area) (cm) 0.35 -Tunneling No -Undermining/Tunneling No -Circular Undermining No -Wound/Ulcer Outcome Not Healed -Ulcer Cleansing Rinsed/ Irrigated with Saline -Foul Odor after Cleansing No -Bleeding Controlled with Pressure -Treatment Response Procedure Tolerated Well -Assistive Device(s) Wheelchair -Debridement - Subq, 1st 20sq cm Yes Pain Scale: 0-10 Numeric Is Patient Pain Free? Yes Assessment/Plan Assessment/Plan (1) 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: CODE(S): L97.312 - Non-pressure chronic ulcer of right ankle with fat layer exposed (2) Insulin dependent diabetes mellitus: (3) Tobacco abuse: CODE(S): Z72.0 - Tobacco use PLAN: Plan Debridement done as documented above, procedure was well-tolerated. Stable Ulcer. No significant change but good granulation tissue and no periwound maceration appreciated. Continue Promogran and other chronic wound care. Continue 3M for edema management. Change on Saturday and Saturday at facility. Optimal protein intake. Continue other chronic wound care management and off loading. Her questions were answered and she was advised to call with any further questions or concerns. Follow up in 1 week. This note was generated with [employer] dictation software. It may contain incorrect words, spelling, and punctuation that were not noted in checking the note before signing.
[2023-09-26 10:12] VITALS: BP 122/56; PULSE 63; RESP 18; TEMP 35.8
--- NOTE | 2023-09-26 11:55 | RAD_ITS ---
STUDY: X-RAY - RIGHT ANKLE REASON FOR EXAM: Female, 62 years old. Ulcer. TECHNIQUE: 3 views of the right ankle. COMPARISON: Right foot radiographs dated 06/25/2017. FINDINGS: Normal visualized distal tibia and fibula. Normal medial and lateral malleoli. Normal tibiotalar articulation and ankle mortise. Normal visualized talus and calcaneus. There is mild talonavicular arthrosis with mild dorsal osseous spurring. The visualized subtalar, calcaneocuboid and tarsal articulations are normal. There is no demonstrated fracture. There is mild soft tissue swelling around the right ankle, most pronounced along the lateral ankle. RAD/Ankle min 3 Views IMPRESSION: Mild talonavicular arthrosis. Mild soft tissue swelling around the right ankle, most pronounced along the lateral ankle. Electronically Signed: Mehrdad Corado MD at 15:03 EDT ,
--- NOTE | 2023-09-26 11:55 | RAD_ITS ---
STUDY: X-RAY - RIGHT FOOT CLINICAL: Female, 62 years old. ULCER TECHNIQUE: 4 views of the right foot. COMPARISON: None. FINDINGS: There is generalized osteopenia. Intact talus, calcaneus, and tarsal bones. There is mild talonavicular arthrosis with mild dorsal osseous spurring. Normal visualized subtalar, calcaneocuboid, tarsal and tarsometatarsal articulations. Normal metatarsi. There is mild degenerative arthrosis of the metatarsophalangeal joint of the hallux. Normal tibial and fibular sesamoid bones. Normal interphalangeal joint of the great toe. Normal phalanges of the great toe. Normal second through fifth metatarsophalangeal joints. Normal interphalangeal joints and phalanges of the lesser toes. There is no demonstrated fracture. RAD/Foot min 3 Views IMPRESSION: Generalized osteopenia. 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 Electronically Signed: Mehrdad Corado MD at 15:24 EDT ,
--- NOTE | 2023-09-26 12:09 | PCM.WC.PN ---
History of Present Illness Date of Service: 09/26/23 Chief Complaint: Non healing right ankle ulcer History of Wound: Ms. Lam is a 62-year-old who was referred to this facility due to nonhealing right lateral ankle ulcer. Noted a year ago, started out as a bullae and subsequently opened up. She states that over the years, she has had alginate and collagen dressings done at her facility without any significant improvement. History of diabetes mellitus, she is not sure of her most recent A1c but states that it has ranged from 8-13. Also history of tobacco use, smokes daily. There is significant pain around the ulcer but she denies otherwise significant leg pain. Does not wear compression. Mostly sedentary but sleeps in the bed. She feels well otherwise, no chills, fever, nausea, vomiting or change in bowel habit reported. Progress of Wound: Lori ulcer maceration and break down. Patient states that she had increased drainage and pain all week. No chills, fever or otherwise feeling of unwell reported. Objective Data Objective Data Vital Signs: Vital Signs Temp Pulse Resp BP 96.4 F L 63 18 122/56 H 09/26/23 10:12 09/26/23 10:12 09/26/23 10:12 09/26/23 10:12 Lab / Micro Data 09/26/23 11:34 09/26/23 11:34 Charges/Coding Procedures Integumentary [id number]: [id number] Carla subq tissue 20 sq cm/< Physical Exam Const alert, oriented x3 and no apparent distress General Appearance: cooperative, comfortable and well kempt HEENT normocephalic and head/scalp atraumatic Eyes EOMs intact bilaterally General Eye: normal appearance of both eyes Neck full ROM and supple General: normal visual inspection Resp normal respiratory effort Effort and Inspection: able to speak in complete sentences Extremity General Extremity: edema Skin Wounds: wounds noted Neuro oriented x3, CN's II-XII intact bilaterally and moves all extremities Psych mental status grossly normal, thought process normal, cooperative and affect normal Debridement Note Debridement Note Wound debrided: Right lateral foot/ankle Type of Debridement: Excisional debridement Anesthesia Used: 5% Lidocaine Gel Depth: Down to and including healthy tissue and in the subcutaneous layer Percentage of wound debrided: 100 Instrument Used: 3mm curette Tissue Removed: Slough and devitalized tissue Severity: Fat Layer Exposed Amount of bleeding with debridement: Mild Bleeding Controlled with: Pressure Patient tolerated procedure: Patient tolerated procedure well Post-Debridement Measurements and Additional Note: Post-Debridement Measurements/Treatment WC - Nurse 1 - General Ulcer Assessment Start: 09/19/23 09:30 Freq: Status: Active Protocol: BELLEEXMaria Luisa Activity Type Activity Date Activity User E-sign Co-sign Detail Recorded Client Recorded Date Recorded By Document 09/19/23 09:30 RB Desktop 09/19/23 09:32 RB Document 09/26/23 10:12 RB Desktop 09/26/23 10:15 RB 09/19/23 09/26/23 09:30 10:12 WC - Today's Visit Information Type of service Follow-up Visit Follow-up Visit (Physician/MACHINE STONECUTTER (Physician/MACHINE STONECUTTER ) ) Arrival Mode Wheelchair Wheelchair Transfer Assistance None None Patient Identification Verified (Name & Yes Yes ) Patient Requires Transmission-Based No No Precautions Vital Signs Temperature (97.8 F-99.1 F) 96.3 F L 96.4 F L Temperature Source Temporal Temporal Pulse Rate (60-100) 71 63 Pulse Location Monitor Monitor Respiratory Rate (12-18) 18 18 Respiratory rate source Observation Observation Blood Pressure (90/60-120/80) 138/66 H 122/56 H Blood Pressure Mean (mm Hg) 90 78 Source Monitor Monitor Position Sitting Sitting Blood Pressure Location Right Arm Left Arm History Since Last Visit- (Skip if this is Patient's initial visit) Have you changed medications since your No No last visit? Any new allergies or adverse reactions No No Had a fall/change in ADL's that may No No increase risk of falls Signs or symptoms of abuse and/or No No neglect since last visit Have you been in the hospital since your No No last visit? Has dressing in place as prescribed Yes Yes Has compression in place as prescribed Yes Yes Has offloadiing in place as prescribed No No Experienced any changes in pain level or No No management Pain Scale: 0-10 Numeric Is Patient Pain Free? Yes No R LE -Description Aching -Intensity 8 -Duration (hours) Chronic -Pain Behavior Withdrawal from Touch -Pain Aggravating Factors Exercise/ Activity, Debridement -Alleviating Factors/Interventions Medication -Effectiveness of Alleviating Factor/ Minimally Intervention effective - Nurse 1 - General Ulcer Measurement Start: 09/19/23 09:30 Freq: Status: Active Protocol: Activity Type Activity Date Activity User E-sign Co-sign Detail Recorded Client Recorded Date Recorded By Document 09/19/23 09:30 RB Desktop 09/19/23 09:32 RB Document 09/26/23 10:12 RB Desktop 09/26/23 10:15 RB 09/19/23 09/26/23 09:30 10:12 Wound Center Nurse 1 #1 R Lat Ankle -Combined with other wound No No -Current Size (cm) - Length 0.1 1.8 -Current Size (cm) - Width 0.1 1 -Current Size (cm) - Depth 0.1 0.3 -Total Square Cm 0.01 1.8 -Tunneling No No -Undermining/Tunneling No No -Circular Undermining No No -Exudate Amt Medium Medium -Exudate Type Serosanguineous Serosanguineous -Wound Margin Thickened & Thickened & Rolled Under Rolled Under -Granulation Amt Medium (34-66%) Medium (34-66%) -Granulation Quality [place]dale Barksdale -Slough/Fibrin Yes Yes -Necrosis Amt Medium (34-66%) Medium (34-66%) -Necrotic Tissue Type Adherent Slough Adherent Slough -Structure Exposed N/A N/A -Texture (Lori-wound Skin Appearance) Assessed Scarring -Moisture (Lori-wound Skin Appearance) Assessed Maceration -Color (Lori-wound Skin Appearance) Assessed, Assessed, Hemosiderin Hemosiderin Staining Staining -Temperature (Lori-wound Skin No Abnormality No Abnormality Appearance) (Pt Warm) (Pt Warm) -Tenderness on Palpation (Lori-wound No No Skin Appearance) -Ulcer Cleansing Wound Cleanser Wound Cleanser -Foul Odor after Cleansing No No -Anesthetic Used 5% Lidocaine 5% Lidocaine Gel Gel Lower Limb Edema Present Yes Yes Right Calf (cm) 34.5 34.5 Right Ankle (cm) 21.5 21.5 WC - Nurse 2 - General Ulcer CM Notes Start: 09/19/23 09:30 Freq: Status: Active Protocol: Activity Type Activity Date Activity User E-sign Co-sign Detail Recorded Client Recorded Date Recorded By Document 09/19/23 09:53 Desktop 09/19/23 09:59 Document 09/26/23 10:37 Desktop 09/26/23 10:39 GM 09/19/23 09/26/23 09:53 10:37 Wound Center Nurse 2 #1 R Lat Ankle -Time 09:53 10:37 -Correct Patient Yes Yes -Correct Side, Site, Position Yes Yes -Correct Procedure Yes Yes -Procedure Performed Yes Yes -Type of Procedure Debridement Debridement -Clinical Debridement Subcutaneous Subcutaneous -Tissue Removed Subcutaneous Subcutaneous -Post Debridement (cm) - Length 0.7 2 -Post Debridement (cm) - Width 0.5 2 -Post Debridement (cm) - Depth 0.2 0.1 -Total Square (Post) (cm) 0.35 4 -Area of Debridement (cm) - Length 0.7 2 -Area of Debridement (cm) - Width 0.5 2 -Total Square (Area) (cm) 0.35 4 -Tunneling No No -Undermining/Tunneling No No -Circular Undermining No No -Wound/Ulcer Outcome Not Healed Not Healed -Ulcer Cleansing Rinsed/ Rinsed/ Irrigated with Irrigated with Saline Saline -Foul Odor after Cleansing No No -Bleeding Controlled with Pressure Pressure -Treatment Response Procedure Tolerated Well -Assistive Device(s) Wheelchair -Debridement - Subq, 1st 20sq cm Yes Yes Pain Scale: 0-10 Numeric Is Patient Pain Free? Yes No R LE -Intensity 8 -Duration (hours) Acute -Pain Behavior No Change in Behavior -Alleviating Factors/Interventions Inactivity/ Resting WC - Nurse 3 - General Ulcer D/C NN Start: 09/19/23 09:30 Freq: Status: Active Protocol: Activity Type Activity Date Activity User E-sign Co-sign Detail Recorded Client Recorded Date Recorded By Document 09/19/23 10:17 Desktop 09/19/23 10:18 Document 09/26/23 11:13 Desktop 09/26/23 11:14 RB 09/19/23 09/26/23 10:17 11:13 Wound Care Center Nurse 3 #1 R Lat Ankle -Ulcer Cleansing Not Cleansed -Foul Odor after Cleansing No -Primary Dressing Applied Aquacel Extra, Aquacel Extra, Mepilex Border, Mepilex Border, Promogran Promogran -Primary Dressing Covered/Secured with Secured with Tape -Aquacel Extra 1 1 -Mepilex Border 1 1 -Promogran 1 1 Right -Lotion applied to leg before No compression wrap -Multi-Layered Wrap Application Multi-Layer Comp - Right ($ ) Treatment Response Procedure Tolerated Well Pain Scale: 0-10 Numeric Is Patient Pain Free? 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 Significant worsening noted, increase in size and lori ulcer maceration. As above, she states that she had increased drainage and pain all week which was not typical. No chills, fever or otherwise feeling of unwell. Cultures taken. CBC, CMP, CRP, ESR and x-ray ordered. Will review. If no significant concern for an overwhelming infection will treat with antibiotics however, if concern for osteo or significant infection, she was advised that my recommendation will be hospital admission. She voiced understanding. She was also advised that if she starts to feel unwell, she should go to the emergency room. Again, she voiced understanding. Continue other chronic wound care recommendations. Her questions were answered and she was advised to call with any further questions or concerns. Follow up in 1 week. This note was generated with [employer] dictation software. It may contain incorrect words, spelling, and punctuation that were not noted in checking the note before signing.
[2023-09-26 12:54] LABS: Absolute Lymphocyte Count 2.05 X10^3/uL (0.83-4.51); Absolute Neutrophil Count 6.8 X10^3/uL (2.0-7.7); Basophil# 0.04 X10^3/uL; Basophil% 0.4 % (0-1); Eosinophil# 0.13 X10^3/uL; Eosinophils% 1.3 % (0-5); Hematocrit 44.9 % (37-47); Hemoglobin 14.5 g/dL (12.0-15.0); Lymphocyte # 2.05 X10^3/ul (0.83-4.51); Lymphocyte % 20.9 % (19-41); Mean Corp Hgb Conc 32.3 g/dL (32-36); Mean Corpuscular Hgb 28.3 pg (27.0-32.0); Mean Corpuscular Volume 87.5 fL (81-99); Mean Platelet Vol. 10.6 fl (6.2-12.0); Monocyte# 0.75 X10^3/uL; Monocyte% 7.7 % (0-10); NRBC Flagged by Analyzer 0 % (0-5); Neutrophil # 6.76 X10^3/uL (2.7-7.7); Neutrophil % 69.1 % (47-70); Platelet Count 222 K/mm3 (150-450); RBC Distribution Width CV 13.4 % (11.6-14.6); RBC Distribution Width SD 42.7 fl (35.1-43.9); Red Blood Count 5.13 M/mm3 (4.2-5.4); White Blood Count 9.8 K/mm3 (4.4-11.0)
[2023-09-26 13:01] LABS: Erythrocyte Sedimentation Rate 15 mm/hr (0-30)
[2023-09-26 13:35] LABS: AST(SGOT) 42 U/L (15-37); Alanine Aminotransfer ALT/SGPT 62 U/L (13-56); Albumin, Serum 3.4 g/dL (3.2-5.0); Alkaline Phosphatase 60 U/L (45-117); Anion Gap 5 (5-15); BUN 14 mg/dL (7-18); BUN/Creat Ratio 17.4 RATIO (10-20); CRP 5.51 mg/L (0.0-3.0); Calcium,Total 9.4 mg/dL (8.5-10.1); Chloride 106 mmol/L (98-107); EST Glomerular Filtration Rate 77 mL/min (>60); Est Glom Filt Rate - Afr Amer 93 mL/min (>60); Globulin 3.5 g/dL (2.2-4.2); Glucose 210 mg/dL (74-106); Potassium 4.5 mmol/L (3.5-5.1); Protein, Total 6.9 g/dL (6.4-8.2); Sodium Level 139 mmol/L (136-145)
--- NOTE | 2023-09-26 16:27 | WC ---
Contacted [facility], Spoke to nurse oFuzia, asked her to let Juliana know that her xray of her right ankle is suggestive for Osteomylitis and Dr. Laughlin has ordere an MRI, our front clerk lead printer will schedule the test.
[2023-10-03 09:41] VITALS: BP 122/58; PULSE 72; RESP 18; TEMP 35.7
--- NOTE | 2023-10-03 10:08 | PCM.WC.HP ---
History of Present Illness Date of Service: 10/03/23 Chief Complaint: Non healing right ankle ulcer History of Wound: Ms. Lam is a 62-year-old who was referred to this facility due to nonhealing right lateral ankle ulcer. Noted a year ago, started out as a bullae and subsequently opened up. She states that over the years, she has had alginate and collagen dressings done at her facility without any significant improvement. History of diabetes mellitus, she is not sure of her most recent A1c but states that it has ranged from 8-13. Also history of tobacco use, smokes daily. There is significant pain around the ulcer but she denies otherwise significant leg pain. Does not wear compression. Mostly sedentary but sleeps in the bed. She feels well otherwise, no chills, fever, nausea, vomiting or change in bowel habit reported. Progress of Wound: Lori ulcer maceration and break down. Patient states that she had increased drainage and pain all week. No chills, fever or otherwise feeling of unwell reported. [facility] Medical History Anxiety Cerebral vascular disease 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 Diabetes GERD (gastroesophageal reflux disease) Hyperlipidemia Hypertension Insomnia Insulin dependent diabetes mellitus Mild asthma Neuralgia and neuritis Schizoaffective disorder Schizophrenia Spondylosis Tobacco abuse Home Medications amlodipine 5 mg tablet 5 mg PO DAILY blood pressure 03/08/19 [History Last Taken 03/08/19] ondansetron HCl 4 mg tablet 4 mg PO Q6H PRN PRN Nausea 03/08/19 [History Last Taken Unknown] prazosin 1 mg capsule 1 mg PO QHS nightmares 03/08/19 [History Last Taken 03/07/19 20:00] albuterol sulfate 2.5 mg/3 mL (0.083 %) solution for nebulization 2.5 mg inhalation Q4H PRN SOB 07/29/21 [History Last Taken Unknown] apixaban 5 mg tablet (Eliquis) 5 mg PO BID 07/29/21 [History Last Taken Unknown] cyclosporine 0.05 % eye drops in a dropperette (Restasis) 1 drp EACH EYE Q12H 07/29/21 [History Last Taken Unknown] insulin aspart U-100 100 unit/mL (3 mL) subcutaneous pen unit subcut LUNCH 07/29/21 [History Last Taken Unknown] lurasidone 80 mg tablet (Latuda) 80 mg PO DAILY 07/29/21 [History Last Taken Unknown] naloxegol 25 mg tablet (Movantik) 25 mg PO DAILY 07/29/21 [History Last Taken Unknown] pantoprazole 40 mg tablet,delayed release 40 mg PO DAILY 07/29/21 [History Last Taken Unknown] acetaminophen 325 mg tablet 325 mg PO ONCE PRN 12/18/22 [History Last Taken Unknown] aluminum-mag hydroxide-simethicone 400 mg-400 mg-40 mg/5 mL oral susp (Maalox Maximum Strength) 5 ml PO Q3H 12/18/22 [History Last Taken Unknown] atenolol 25 mg tablet 25 mg PO DAILY 12/18/22 [History Last Taken Unknown] atorvastatin 80 mg tablet 40 mg PO QHS cholesterol 12/18/22 [History Last Taken Unknown] baclofen 5 mg tablet 5 mg PO DAILY 12/18/22 [History Last Taken Unknown] benzonatate 100 mg capsule 100 mg PO Q8H PRN 12/18/22 [History Last Taken Unknown] bisacodyl 10 mg rectal suppository (Dulcolax (bisacodyl)) 10 mg ME Q8H PRN 12/18/22 [History Last Taken Unknown] bisacodyl 5 mg tablet,delayed release (Dulcolax (bisacodyl)) 5 mg PO Q8H 12/18/22 [History Last Taken Unknown] carboxymethylcellulose sodium 0.5 % eye drops (Refresh Tears) 1 drp ophthalmic (eye) QHS 12/18/22 [History Last Taken Unknown] cholecalciferol (vitamin D3) 125 mcg (5,000 unit) capsule 125 mcg PO DAILY 12/18/22 [History Last Taken Unknown] cholecalciferol (vitamin D3) 50 mcg (2,000 unit) capsule 50 mcg PO DAILY 12/18/22 [History Last Taken Unknown] diclofenac sodium 1 % topical gel 2 g topical ONCE 12/18/22 [History Last Taken Unknown] dulaglutide 3 mg/0.5 mL subcutaneous pen injector (Trulicity) 3 mg subcut QWEEK 12/18/22 [History Last Taken Unknown] dyclonine 2 mg lozenges (Sucrets Sore Throat) 2 mg mucous membrane Q3H PRN 12/18/22 [History Last Taken Unknown] epinephrine 0.3 mg/0.3 mL injection, auto-injector (EpiPen) 0.3 mg IM Q5-15M PRN 12/18/22 [History Last Taken Unknown] flash glucose sensor (FreeStyle Cynthia 2 Sensor kit) 12/18/22 [History Last Taken Unknown] fluticasone fur. 200 mcg-umeclid 62.5 mcg-vilant 25 mcg inhalat.powder (Trelegy Ellipta) 1 inh inhalation DAILY 12/18/22 [History Last Taken Unknown] fluticasone propionate 50 mcg/actuation nasal spray,suspension (Flonase Allergy Relief) 2 spray intranasal DAILY 12/18/22 [History Last Taken Unknown] guaifenesin 100 mg/5 mL oral liquid 200 mg PO Q4H PRN 12/18/22 [History Last Taken Unknown] hydroxyzine pamoate 25 mg capsule (Vistaril) 25 mg PO QHS 12/18/22 [History Last Taken Unknown] insulin glargine U-300 conc 300 unit/mL (1.5 mL) subcutaneous pen (Toujeo SoloStar U-300 Insulin) 30 unit subcut DAILY 12/18/22 [History Last Taken Unknown] ipratropium 0.5 mg-albuterol 3 mg (2.5 mg base)/3 mL nebulization soln 3 ml inhalation 6XD 12/18/22 [History Last Taken Unknown] ipratropium 20 mcg-albuterol 100 mcg/actuation mist for inhalation (Combivent Respimat) 1 puff inhalation Q6H 12/18/22 [History Last Taken Unknown] ipratropium bromide 21 mcg (0.03 %) nasal spray 2 spray intranasal BID 12/18/22 [History Last Taken Unknown] lisinopril 2.5 mg tablet 2.5 mg PO DAILY 12/18/22 [History Last Taken Unknown] loratadine 10 mg tablet (Claritin) 10 mg PO DAILY 12/18/22 [History Last Taken Unknown] melatonin 3 mg capsule 3 mg PO HS PRN 12/18/22 [History Last Taken Unknown] metformin 500 mg tablet 500 mg PO QHS 12/18/22 [History Last Taken Unknown] montelukast 10 mg tablet 10 mg PO DAILY 12/18/22 [History Last Taken Unknown] naloxone 0.4 mg/mL injection solution 0.2 mg subcut ONCE 12/18/22 [History Last Taken Unknown] olanzapine 10 mg tablet (Zyprexa) 10 mg PO QPM 12/18/22 [History Last Taken Unknown] polyethylene glycol 3350 17 gram/dose oral powder (Miralax) 4 g PO DAILY 12/18/22 [History Last Taken Unknown] tizanidine 2 mg tablet 2 mg PO Q12H 12/18/22 [History Last Taken Unknown] duloxetine 60 mg capsule,delayed release (Cymbalta) 60 mg PO BID 01/16/23 [History Last Taken Unknown] furosemide 20 mg tablet 40 mg PO QAM 01/16/23 [History Last Taken Unknown] potassium chloride 20 mEq tablet,extended release 20 meq PO DAILY 01/16/23 [History Last Taken Unknown] pregabalin 100 mg capsule 100 mg PO DAILY 01/16/23 [History Last Taken Unknown] doxycycline monohydrate 100 mg capsule 100 mg PO BID 2 weeks #28 caps 10/01/23 [Rx Last Taken Unknown] Allergy/AdvReac Type Severity Reaction Status Date / Time Iodinated Contrast Media Allergy Hives Verified 04/05/23 11:17 [Iodinated Contrast Media - IV Dye] amoxicillin trihydrate AdvReac Itching Verified 04/05/23 11:17 [From Augmentin] hydrocodone [From Vicodin] AdvReac Unknown Verified 04/05/23 11:17 potassium clavulanate AdvReac Itching Verified 04/05/23 11:17 [From Augmentin] prednisone AdvReac Unknown Verified 04/05/23 11:17 shellfish derived AdvReac Itching Verified 04/05/23 11:17 Surgical History S/P right rotator cuff repair Social History Smoking Status: Current every day smoker tobacco type: cigarettes ROS Constitutional Constitutional: Denies anorexia, change in weight, chills, fatigue or fever(s) Eyes Eyes: Denies blurry vision, change in vision or double vision ENT HEENT: Denies dysphagia, nasal congestion, nasal discharge or sore throat Cardiovascular Cardiovascular: Denies chest pain, claudication, dyspnea or palpitations Respiratory/Chest Respiratory/Chest: Denies cough, shortness of breath at rest or wheezing Gastrointestinal Gastrointestinal: Denies abdominal pain, constipation, diarrhea, nausea or vomiting Genitourinary Genitourinary: Denies dysuria, hematuria or urinary frequency Musculoskeletal Musculoskeletal: Denies joint pain, joint stiffness or joint swelling Integumentary Integumentary: Denies lesions, pruritus or rash Neurologic Neurologic: Denies dizziness, numbness or seizures Psychiatric Psychiatric: Denies anxiety Endocrine Endocrinology: Denies cold intolerance or heat intolerance Hematologic/Lymphatic Hematologic/Lymphatic: Denies easy bleeding or easy bruising Vital Signs Vital Signs Vital Signs: 10/03/23 09:41 Temperature 96.3 F L Temperature Source Temporal Pulse Rate 72 Respiratory Rate 18 Blood Pressure 122/58 H Blood Pressure Mean 79 Blood Pressure Source Monitor Blood Pressure Position Sitting Blood Pressure Location Left Arm Oxygen Delivery Method Room Air Physical Exam Const alert, oriented x3 and no apparent distress General Appearance: cooperative HEENT normocephalic Eyes General Eye: normal appearance of both eyes Neck General: normal visual inspection Lymph Lymphatic: no lymphadenopathy noted and no lymphedema noted Resp normal respiratory effort Cardio regular rate and regular rhythm Extremity normal capillary refill, no joint enlargement, no calf tenderness and no pedal edema Extremity Narrative: Right lower extremity: Vascular: DP and PT pulses palpable. Capillary fill time less than 5 seconds to digits. Normal temperature gradient. Hair growth is absent to digits/foot. Neurologic: Light touch sensation diminished. Gross sensation intact. Protective sensation is significantly diminished secondary to diabetic peripheral polyneuropathy. Dermatologic: Skin does appear well-hydrated. Skin is soft, supple, normal turgor. Right lateral ankle demonstrates ulceration distal to the lateral malleolus to the level of the subcutaneous tissue with mixed fibrogranular layer and serosanguineous drainage. Ulceration demonstrates no malodor, no purulent drainage, no localized erythema, no increased temperature, no palpable fluctuance/bogginess, no visible abscess formation. Musculoskeletal: Patient is in wheelchair and does have decreased muscle strength of the lower extremities bilateral. Debridement Note Debridement Note Wound debrided: Right lateral ankle Laterality: Right Wound Grade/Stage: Esqueda stage I Type of Debridement: Excisional debridement Anesthesia Used: 5% Lidocaine Gel and - (10 cc 1% lidocaine with epinephrine) Depth: Down to and including healthy tissue and in the subcutaneous layer Percentage of wound debrided: 100 Instrument Used: 5mm curette Tissue Removed: Fibrous, devitalized subcutaneous, biofilm, slough Severity: Fat Layer Exposed Amount of bleeding with debridement: Mild Bleeding Controlled with: Compression and gauze Patient tolerated procedure: Patient tolerated procedure well Post-Debridement Measurements and Additional Note: Post-Debridement Measurements/Treatment - Nurse 1 - General Ulcer Assessment Start: 09/19/23 09:30 Freq: Status: Active Protocol: CLOVIS Activity Type Activity Date Activity User E-sign Co-sign Detail Recorded Client Recorded Date Recorded By Document 09/19/23 09:30 RB Desktop 09/19/23 09:32 RB Document 09/26/23 10:12 RB Desktop 09/26/23 10:15 RB Document 10/03/23 09:41 GM Desktop 10/03/23 09:51 GM 09/19/23 09/26/23 10/03/23 09:30 10:12 09:41 - Today's Visit Information Type of service Follow-up Visit Follow-up Visit Follow-up Visit (Physician/COMPETENCY EVALUATED NURSE AIDE (Physician/COMPETENCY EVALUATED NURSE AIDE (Physician/COMPETENCY EVALUATED NURSE AIDE ) ) ) Arrival Mode Wheelchair Wheelchair Ambulatory Transfer Assistance None None None Patient Identification Verified (Name & Yes Yes Yes ) Patient Requires Transmission-Based No No Precautions Finger Stick Blood Sugar(mg/dl) (if 115 indicated): Blood Sugar Stated by Patient Vital Signs Temperature (97.8 F-99.1 F) 96.3 F L 96.4 F L 96.3 F L Temperature Source Temporal Temporal Temporal Pulse Rate (60-100) 71 63 72 Pulse Location Monitor Monitor Monitor Respiratory Rate (12-18) 18 18 18 Respiratory rate source Observation Observation Observation Oxygen Delivery Method Room Air Blood Pressure (90/60-120/80) 138/66 H 122/56 H 122/58 H Blood Pressure Mean 90 78 79 Source Monitor Monitor Monitor Position Sitting Sitting Sitting Blood Pressure Location Right Arm Left Arm Left Arm History Since Last Visit- (Skip if this is Patient's initial visit) Have you changed medications since your No No No last visit? Any new allergies or adverse reactions No No No Had a fall/change in ADL's that may No No No increase risk of falls Signs or symptoms of abuse and/or No No No neglect since last visit Have you been in the hospital since your No No No last visit? Has dressing in place as prescribed Yes Yes Yes Has compression in place as prescribed Yes Yes N/A Has offloadiing in place as prescribed No No Yes Experienced any changes in pain level or No No No management Pain Scale: 0-10 Numeric Is Patient Pain Free? Yes No No R LE -Description Aching -Intensity 8 8 -Duration (hours) Chronic Chronic -Pain Behavior Withdrawal from No Change in Touch Behavior -Pain Aggravating Factors Exercise/ Activity, Debridement -Alleviating Factors/Interventions Medication Medication, Inactivity/ Resting,Will continue to monitor, Emotional Support -Effectiveness of Alleviating Factor/ Minimally Intervention effective WC - Nurse 1 - General Ulcer Measurement Start: 09/19/23 09:30 Freq: Status: Active Protocol: Activity Type Activity Date Activity User E-sign Co-sign Detail Recorded Client Recorded Date Recorded By Document 09/19/23 09:30 RB Desktop 09/19/23 09:32 RB Document 09/26/23 10:12 RB Desktop 09/26/23 10:15 RB Document 10/03/23 09:41 Desktop 10/03/23 09:51 09/19/23 09/26/23 10/03/23 09:30 10:12 09:41 Wound Center Nurse 1 #1 R Lat Ankle -Combined with other wound No No -Current Size (cm) - Length 0.1 1.8 -Current Size (cm) - Width 0.1 1 -Current Size (cm) - Depth 0.1 0.3 -Total Square Cm 0.01 1.8 -Photo Taken No -Epithelialization None Present -Tunneling No No -Undermining/Tunneling No No -Circular Undermining No No -Exudate Amt Medium Medium Medium -Exudate Type Serosanguineous Serosanguineous Yellow/Green -Wound Margin Thickened & Thickened & Distinct, Rolled Under Rolled Under Outline Attached -Granulation Amt Medium (34-66%) Medium (34-66%) Small (1-33%) -Granulation Quality [place] -Slough/Fibrin Yes Yes -Necrosis Amt Medium (34-66%) Medium (34-66%) Medium (34-66%) -Necrotic Tissue Type Adherent Slough Adherent Slough Adherent Slough -Structure Exposed N/A N/A N/A -Texture (Lori-wound Skin Appearance) Assessed Scarring Assessed -Moisture (Lori-wound Skin Appearance) Assessed Maceration Assessed, Maceration -Color (Lori-wound Skin Appearance) Assessed, Assessed, Assessed Hemosiderin Hemosiderin Staining Staining -Temperature (Lori-wound Skin No Abnormality No Abnormality Appearance) (Pt Warm) (Pt Warm) -Tenderness on Palpation (Lori-wound No No Skin Appearance) -Ulcer Cleansing Wound Cleanser Wound Cleanser Soap and Water -Foul Odor after Cleansing No No No -Anesthetic Used 5% Lidocaine 5% Lidocaine 5% Lidocaine Gel Gel Gel Lower Limb Edema Present Yes Yes Right Calf (cm) 34.5 34.5 Right Ankle (cm) 21.5 21.5 WC - Nurse 2 - General Ulcer CM Notes Start: 09/19/23 09:30 Freq: Status: Active Protocol: Activity Type Activity Date Activity User E-sign Co-sign Detail Recorded Client Recorded Date Recorded By Document 09/19/23 09:53 GM Desktop 09/19/23 09:59 GM Document 09/26/23 10:37 GM Desktop 09/26/23 10:39 GM 09/19/23 09/26/23 09:53 10:37 Wound Center Nurse 2 #1 R Lat Ankle -Time 09:53 10:37 -Correct Patient Yes Yes -Correct Side, Site, Position Yes Yes -Correct Procedure Yes Yes -Procedure Performed Yes Yes -Type of Procedure Debridement Debridement -Clinical Debridement Subcutaneous Subcutaneous -Tissue Removed Subcutaneous Subcutaneous -Post Debridement (cm) - Length 0.7 2 -Post Debridement (cm) - Width 0.5 2 -Post Debridement (cm) - Depth 0.2 0.1 -Total Square (Post) (cm) 0.35 4 -Area of Debridement (cm) - Length 0.7 2 -Area of Debridement (cm) - Width 0.5 2 -Total Square (Area) (cm) 0.35 4 -Tunneling No No -Undermining/Tunneling No No -Circular Undermining No No -Wound/Ulcer Outcome Not Healed Not Healed -Ulcer Cleansing Rinsed/ Rinsed/ Irrigated with Irrigated with Saline Saline -Foul Odor after Cleansing No No -Bleeding Controlled with Pressure Pressure -Treatment Response Procedure Tolerated Well -Assistive Device(s) Wheelchair -Debridement - Subq, 1st 20sq cm Yes Yes Pain Scale: 0-10 Numeric Is Patient Pain Free? Yes No R LE -Intensity 8 -Duration (hours) Acute -Pain Behavior No Change in Behavior -Alleviating Factors/Interventions Inactivity/ Resting WC - Nurse 3 - General Ulcer D/C NN Start: 09/19/23 09:30 Freq: Status: Active Protocol: Activity Type Activity Date Activity User E-sign Co-sign Detail Recorded Client Recorded Date Recorded By Document 09/19/23 10:17 GM Desktop 09/19/23 10:18 GM Document 09/26/23 11:13 RB Desktop 09/26/23 11:14 RB 09/19/23 09/26/23 10:17 11:13 Wound Care Center Nurse 3 #1 R Lat Ankle -Ulcer Cleansing Not Cleansed -Foul Odor after Cleansing No -Primary Dressing Applied Aquacel Extra, Aquacel Extra, Mepilex Border, Mepilex Border, Promogran Promogran -Primary Dressing Covered/Secured with Secured with Tape -Aquacel Extra 1 1 -Mepilex Border 1 1 -Promogran 1 1 Right -Lotion applied to leg before No compression wrap -Multi-Layered Wrap Application Multi-Layer Comp - Right ($ ) Treatment Response Procedure Tolerated Well Pain Scale: 0-10 Numeric Is Patient Pain Free? 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 Laughlin who is out of office today. I have reviewed previous records and diagnostic data. Patient did have radiographs performed 09/26/2023 of the right ankle and foot demonstrating generalized osteopenia, soft tissue swelling, and mild arthritis of the first MTPJ and TNJ. Recent laboratory data demonstrates WBC 9.8, ESR 15, glucose 210. No recent A1c was performed with last A1c of record 03/09/2019 which was 8% at this time. Recommended updating A1c today. Wound cultures were obtained 09/26/2023 demonstrating MRSA positive. These cultures do reflect previous past cultures of MRSA positive from August and July 2023. Recommended referral to Dr. Robbins. Patient currently on doxycycline 100 mg twice daily for 7 days. I do feel antibiotic should be extended versus possibly switching to Zyvox. Ulceration was debrided as noted in the clinical panel above. Prior to debridement she was locally anesthetized proximal to the ulcerative site consisting of 10 cc 1% lidocaine with epinephrine with block to the sural nerve and superficial peroneal nerve. This is noted to improve patient's tolerance of debridement today. Ulceration to the right lateral ankle measures 1.7 cm x 1.8 cm x 0.3 cm. No localized signs of infection. Change was made in dressings today for improvement of source control. Dakin's wet-to-dry dressing was applied to the lateral ankle. She is instructed to change dressing daily. Recommended finishing oral antibiotic as instructed with follow-up with infectious disease. Recommended adequate protein intake to aid in wound healing. Solomon supplementation is also recommended. Discussed with patient continue proper diabetic diet to aid in wound healing and provide good glycemic control. Discussed glycemic control and lowering of her blood sugar/A1c is important to aid in wound healing. She was again reminded to continue to wear proper fitting shoe gear and to ensure shoe gear is worn at all times for protection of the foot as she is diabetic with significant diminished sensation secondary to peripheral polyneuropathy. Discussed with patient the need for smoking cessation. Discussed impacts of wound healing from her smoking. Discussed with smoking blood flow is diminished to vital organs and extremities which is essential for her wound healing, in addition to affecting oxygen content/saturation of the bloodstream which is also essential for wound healing. Discussed smoking cessation aids today and these were offered. Recommended continued discussion with her primary care physician to aid her in smoking cessation. 5 minutes total was spent on discussion today. I discussed signs and symptoms of infection today. Discussed if she notices increasing redness of the skin about the ulcerative site moving up the leg, purulent drainage from the wound site, increasing foul odor from the wound, or if she develops fever greater than 101 degree accompanied by nausea, vomiting, chills that these are signs of a progressing infection and she should report to the ED for IV antibiotics and further evaluation. Patient voices understanding of this. The following work up and care recommendations were made: Dressing: Dakin's wet-to-dry dressing. Change daily Wash: Soap and water Tissue growth optimization: Dakin's Offload: Padded protective dressing of the lateral ankle. Recommended waffle offloading boot while in bed. Vascular: DP and PT pulses weakly palpable bilateral. Monophasic Doppler to left pedal pulses. Edema: Mild edema noted to the lower extremities. Recommended continued Tubigrip compression with elevation of lower extremities. Infection: Currently no local signs of infection. She does demonstrate positive MRSA cultures and is currently on doxycycline for 7 days. Would recommend extending antibiotic versus switch to Zyvox. Recommended referral to infectious disease. Pain: May take [id number] Tylenol for discomfort Host factors: DM type II with peripheral polyneuropathy, MRSA positive cultures, edema, chronic tobacco abuse. I answered all the patient's questions. To return to the wound healing center in 1 week or call sooner if the patient has any questions or concerns.
--- NOTE | 2023-10-03 16:11 | WC ---
REFERRAL FAXED TO INFECTIOUS DISEASE, DR DAVIS'S OFFICE, PER DR DOWNEY'S ORDER. ALSO CALLED [facility] AND REQUESTED MOST RECENT A1C- ON 08/01/23 WAS 7.2.
[2023-10-10 09:50] VITALS: BP 113/52; PULSE 80; RESP 18; TEMP 36.3
--- NOTE | 2023-10-10 10:31 | PCM.WC.PN ---
History of Present Illness Date of Service: 10/10/23 Chief Complaint: Non healing right ankle ulcer History of Wound: Ms. Lam is a 62-year-old who was referred to this facility due to nonhealing right lateral ankle ulcer. Noted a year ago, started out as a bullae and subsequently opened up. She states that over the years, she has had alginate and collagen dressings done at her facility without any significant improvement. History of diabetes mellitus, she is not sure of her most recent A1c but states that it has ranged from 8-13. Also history of tobacco use, smokes daily. There is significant pain around the ulcer but she denies otherwise significant leg pain. Does not wear compression. Mostly sedentary but sleeps in the bed. She feels well otherwise, no chills, fever, nausea, vomiting or change in bowel habit reported. Progress of Wound: Lori ulcer maceration and break down. Patient states that she had increased drainage and pain all week. No chills, fever or otherwise feeling of unwell reported. Subjective Subjective This is a 63-year-old female who continues to follow to the wound care center for a right lateral ankle ulceration. Patient is assisted by wheelchair today. Patient states she has an MRI coming up 10/11/2023 to evaluate right lower extremity. Nursing facility has assisted in her dressing changes daily. She states the right ankle is painful. She denies constitutional symptoms. Denies further complaints. Objective Data Objective Data Vital Signs: Vital Signs Temp Pulse Resp BP O2 Del Method 97.4 F L 80 18 113/52 L Room Air 10/10/23 09:50 10/10/23 09:50 10/10/23 09:50 10/10/23 09:50 10/03/23 09:41 Oxygen Delivery Method Room Air Lab / Micro Data 09/26/23 11:34 09/26/23 11:34 Micro: Microbiology 09/26/23 13:50 Wound Abcess - Ankle Gram Stain - Final 09/26/23 13:50 Wound Abcess - Ankle Wound Culture - Final Meth. resistant Staph. aureus 09/26/23 13:50 Wound Abcess - Ankle Anaerobic Culture - Final No anaerobic bacteria isolated. Physical Exam Const alert, oriented x3 and no apparent distress General Appearance: cooperative HEENT normocephalic Eyes General Eye: normal appearance of both eyes Neck General: normal visual inspection Lymph Lymphatic: no lymphadenopathy noted and no lymphedema noted Resp normal respiratory effort Cardio regular rate and regular rhythm Extremity normal capillary refill, no joint enlargement, no calf tenderness and no pedal edema Extremity Narrative: Right lower extremity: Vascular: DP and PT pulses palpable. Capillary fill time less than 5 seconds to digits. Normal temperature gradient. Hair growth is absent to digits/foot. Neurologic: Light touch sensation diminished. Gross sensation intact. Protective sensation is significantly diminished secondary to diabetic peripheral polyneuropathy. Dermatologic: Skin does appear well-hydrated. Skin is soft, supple, normal turgor. Right lateral ankle demonstrates ulceration distal to the lateral malleolus to the level of the subcutaneous tissue with mixed fibrogranular layer and serosanguineous drainage. Ulceration demonstrates no malodor, no purulent drainage, no localized erythema, no increased temperature, no palpable fluctuance/bogginess, no visible abscess formation. Musculoskeletal: Patient is in wheelchair and does have decreased muscle strength of the lower extremities bilateral. Debridement Note Debridement Note Wound debrided: Right lateral ankle Laterality: Right Wound Grade/Stage: Esqueda stage I Type of Debridement: Excisional debridement Anesthesia Used: 5% Lidocaine Gel and - (10 cc 1% lidocaine with epinephrine) Depth: Down to and including healthy tissue and in the subcutaneous layer Percentage of wound debrided: 100 Instrument Used: 5mm curette Tissue Removed: Fibrous, devitalized subcutaneous, biofilm, slough Severity: Fat Layer Exposed Amount of bleeding with debridement: Mild Bleeding Controlled with: Compression and gauze Patient tolerated procedure: Patient tolerated procedure well Post-Debridement Measurements and Additional Note: Post-Debridement Measurements/Treatment - Nurse 1 - General Ulcer Assessment Start: 09/19/23 09:30 Freq: Status: Active Protocol: CLOVIS Activity Type Activity Date Activity User E-sign Co-sign Detail Recorded Client Recorded Date Recorded By Document 09/19/23 09:30 RB Desktop 09/19/23 09:32 RB Document 09/26/23 10:12 RB Desktop 09/26/23 10:15 RB Document 10/03/23 09:41 GM Desktop 10/03/23 09:51 GM Document 10/10/23 09:50 DL Desktop 10/10/23 09:53 DL 09/19/23 09/26/23 10/03/23 09:30 10:12 09:41 - Today's Visit Information Type of service Follow-up Visit Follow-up Visit Follow-up Visit (Physician/[employer] (Physician/[employer] (Physician/[employer] ) ) ) Arrival Mode Wheelchair Wheelchair Ambulatory Transfer Assistance None None None Patient Identification Verified (Name & Yes Yes Yes ) Patient Requires Transmission-Based No No Precautions Finger Stick Blood Sugar(mg/dl) (if 115 indicated): Blood Sugar Stated by Patient Vital Signs Temperature (97.8 F-99.1 F) 96.3 F L 96.4 F L 96.3 F L Temperature Source Temporal Temporal Temporal Pulse Rate (60-100) 71 63 72 Pulse Location Monitor Monitor Monitor Respiratory Rate (12-18) 18 18 18 Respiratory rate source Observation Observation Observation Oxygen Delivery Method Room Air Blood Pressure (90/60-120/80) 138/66 H 122/56 H 122/58 H Blood Pressure Mean (mm Hg) 90 78 79 Source Monitor Monitor Monitor Position Sitting Sitting Sitting Blood Pressure Location Right Arm Left Arm Left Arm History Since Last Visit- (Skip if this is Patient's initial visit) Have you changed medications since your No No No last visit? Any new allergies or adverse reactions No No No Had a fall/change in ADL's that may No No No increase risk of falls Signs or symptoms of abuse and/or No No No neglect since last visit Have you been in the hospital since your No No No last visit? Has dressing in place as prescribed Yes Yes Yes Has compression in place as prescribed Yes Yes N/A Has offloadiing in place as prescribed No No Yes Experienced any changes in pain level or No No No management Pain Scale: 0-10 Numeric Is Patient Pain Free? Yes No No R LE -Description Aching -Intensity 8 8 -Duration (hours) Chronic Chronic -Pain Behavior Withdrawal from No Change in Touch Behavior -Pain Aggravating Factors Exercise/ Activity, Debridement -Alleviating Factors/Interventions Medication Medication, Inactivity/ Resting,Will continue to monitor, Emotional Support -Effectiveness of Alleviating Factor/ Minimally Intervention effective 10/10/23 09:50 [facility] Today's Visit Information Type of service Follow-up Visit (Physician/[employer] ) Arrival Mode Wheelchair Transfer Assistance None Patient Identification Verified (Name & Yes ) Patient Requires Transmission-Based No Precautions Finger Stick Blood Sugar(mg/dl) (if indicated): Blood Sugar Vital Signs Temperature (97.8 F-99.1 F) 97.4 F L Temperature Source Temporal Pulse Rate (60-100) 80 Pulse Location Monitor Respiratory Rate (12-18) 18 Respiratory rate source Observation Oxygen Delivery Method Blood Pressure (90/60-120/80) 113/52 L Blood Pressure Mean (mm Hg) 72 Source Monitor Position Blood Pressure Location History Since Last Visit- (Skip if this is Patient's initial visit) Have you changed medications since your No last visit? Any new allergies or adverse reactions No Had a fall/change in ADL's that may No increase risk of falls Signs or symptoms of abuse and/or No neglect since last visit Have you been in the hospital since your No last visit? Has dressing in place as prescribed Yes Has compression in place as prescribed Yes Has offloadiing in place as prescribed N/A Experienced any changes in pain level or No management Pain Scale: 0-10 Numeric Is Patient Pain Free? Yes R LE -Description -Intensity -Duration (hours) -Pain Behavior -Pain Aggravating Factors -Alleviating Factors/Interventions -Effectiveness of Alleviating Factor/ Intervention WC - Nurse 1 - General Ulcer Measurement Start: 09/19/23 09:30 Freq: Status: Active Protocol: Activity Type Activity Date Activity User E-sign Co-sign Detail Recorded Client Recorded Date Recorded By Document 09/19/23 09:30 RB Desktop 09/19/23 09:32 RB Document 09/26/23 10:12 RB Desktop 09/26/23 10:15 RB Document 10/03/23 09:41 GM Desktop 10/03/23 09:51 GM Document 10/10/23 09:50 DL Desktop 10/10/23 09:53 DL 09/19/23 09/26/23 10/03/23 09:30 10:12 09:41 Wound Center Nurse 1 #1 R Lat Ankle -Combined with other wound No No -Current Size (cm) - Length 0.1 1.8 -Current Size (cm) - Width 0.1 1 -Current Size (cm) - Depth 0.1 0.3 -Total Square Cm 0.01 1.8 -Photo Taken No -Epithelialization None Present -Tunneling No No -Undermining/Tunneling No No -Circular Undermining No No -Exudate Amt Medium Medium Medium -Exudate Type Serosanguineous Serosanguineous Yellow/Green -Wound Margin Thickened & Thickened & Distinct, Rolled Under Rolled Under Outline Attached -Granulation Amt Medium (34-66%) Medium (34-66%) Small (1-33%) -Granulation Quality Loyola Loyola Loyola -Slough/Fibrin Yes Yes -Necrosis Amt Medium (34-66%) Medium (34-66%) Medium (34-66%) -Necrotic Tissue Type Adherent Slough Adherent Slough Adherent Slough -Structure Exposed N/A N/A N/A -Texture (Lori-wound Skin Appearance) Assessed Scarring Assessed -Moisture (Lori-wound Skin Appearance) Assessed Maceration Assessed, Maceration -Color (Lori-wound Skin Appearance) Assessed, Assessed, Assessed Hemosiderin Hemosiderin Staining Staining -Temperature (Lori-wound Skin No Abnormality No Abnormality Appearance) (Pt Warm) (Pt Warm) -Tenderness on Palpation (Lori-wound No No Skin Appearance) -Ulcer Cleansing Wound Cleanser Wound Cleanser Soap and Water -Foul Odor after Cleansing No No No -Anesthetic Used 5% Lidocaine 5% Lidocaine 5% Lidocaine Gel Gel Gel Lower Limb Edema Present Yes Yes Right Calf (cm) 34.5 34.5 Right Ankle (cm) 21.5 21.5 10/10/23 09:50 Wound Center Nurse 1 #1 R Lat Ankle -Combined with other wound -Current Size (cm) - Length 1.7 -Current Size (cm) - Width 1 -Current Size (cm) - Depth 0.7 -Total Square Cm 1.7 -Photo Taken Yes -Epithelialization -Tunneling -Undermining/Tunneling -Circular Undermining -Exudate Amt Medium -Exudate Type Serosanguineous -Wound Margin Distinct, Outline Attached -Granulation Amt Large (67-100%) -Granulation Quality Red -Slough/Fibrin -Necrosis Amt Small (1-33%) -Necrotic Tissue Type Adherent Slough -Structure Exposed N/A -Texture (Lori-wound Skin Appearance) Scarring -Moisture (Lori-wound Skin Appearance) Maceration -Color (Lori-wound Skin Appearance) Hemosiderin Staining -Temperature (Lori-wound Skin No Abnormality Appearance) (Pt Warm) -Tenderness on Palpation (Lori-wound No Skin Appearance) -Ulcer Cleansing Soap and Water -Foul Odor after Cleansing No -Anesthetic Used 5% Lidocaine Gel Lower Limb Edema Present Right Calf (cm) Right Ankle (cm) WC - Nurse 2 - General Ulcer CM Notes Start: 09/19/23 09:30 Freq: Status: Active Protocol: Activity Type Activity Date Activity User E-sign Co-sign Detail Recorded Client Recorded Date Recorded By Document 09/19/23 09:53 GM Desktop 09/19/23 09:59 GM Document 09/26/23 10:37 GM Desktop 09/26/23 10:39 GM Document 10/03/23 10:18 [facility] Desktop 10/03/23 10:30 F 09/19/23 09/26/23 10/03/23 09:53 10:37 10:18 Wound Center Nurse 2 #1 R Lat Ankle -Time 09:53 10:37 10:18 -Correct Patient Yes Yes Yes -Correct Side, Site, Position Yes Yes Yes -Correct Procedure Yes Yes Yes -Procedure Performed Yes Yes Yes -Type of Procedure Debridement Debridement Debridement -Clinical Debridement Subcutaneous Subcutaneous Subcutaneous -Tissue Removed Subcutaneous Subcutaneous Subcutaneous -Post Debridement (cm) - Length 0.7 2 1.7 -Post Debridement (cm) - Width 0.5 2 1.8 -Post Debridement (cm) - Depth 0.2 0.1 0.3 -Total Square (Post) (cm) 0.35 4 3.06 -Area of Debridement (cm) - Length 0.7 2 1.7 -Area of Debridement (cm) - Width 0.5 2 1.8 -Total Square (Area) (cm) 0.35 4 3.06 -Tunneling No No No -Undermining/Tunneling No No No -Circular Undermining No No No -Wound/Ulcer Outcome Not Healed Not Healed Not Healed -Ulcer Cleansing Rinsed/ Rinsed/ Rinsed/ Irrigated with Irrigated with Irrigated with Saline Saline Saline -Foul Odor after Cleansing No No No -Bioengineered Tissue No -Injectable Lidocaine w/ Epi (%) 1 -Injectable Lidocaine w/ Epi (mls) 10 -Bleeding Controlled with Pressure Pressure Pressure -Treatment Response Procedure Procedure Tolerated Well Tolerated Well -Offloading No -Assistive Device(s) Wheelchair -Debridement - Subq, 1st 20sq cm Yes Yes Yes Pain Scale: 0-10 Numeric Is Patient Pain Free? Yes No Yes R LE -Intensity 8 -Duration (hours) Acute -Pain Behavior No Change in Behavior -Alleviating Factors/Interventions Inactivity/ Resting WC - Nurse 3 - General Ulcer D/C NN Start: 09/19/23 09:30 Freq: Status: Active Protocol: Activity Type Activity Date Activity User E-sign Co-sign Detail Recorded Client Recorded Date Recorded By Document 09/19/23 10:17 GM Desktop 09/19/23 10:18 GM Document 09/26/23 11:13 RB Desktop 09/26/23 11:14 RB Document 10/03/23 11:49 DL [id number] 10/03/23 11:50 DL 09/19/23 09/26/23 10/03/23 10:17 11:13 11:49 Wound Care Center Nurse 3 #1 R Lat Ankle -Ulcer Cleansing Not Cleansed Rinsed/ Irrigated with Saline -Foul Odor after Cleansing No No -Primary Dressing Applied Aquacel Extra, Aquacel Extra, Mepilex Border, Mepilex Border, Promogran Promogran -Other Dressing dakins -Primary Dressing Covered/Secured with Secured with Dry Gauze & Tape Roll Gauze, Secured with Tape -Other Covering ABD -Aquacel Extra 1 1 -Mepilex Border 1 1 -Promogran 1 1 Right -Lotion applied to leg before No compression wrap -Multi-Layered Wrap Application Multi-Layer Comp - Right ($ ) -Compression Wrap Daljit Wrap Treatment Response Procedure Procedure Tolerated Well Tolerated Well Pain Scale: 0-10 Numeric Is Patient Pain Free? Yes No Yes Teaching: Wound Center Compression Wraps & Stockings -Person Taught Patient -Teaching Method Discussion -Response to teaching Verbalize understanding WC - Visit Discharge Discharge Condition Stable Stable Stable Ambulatory Status Wheelchair Wheelchair Wheelchair Transportation Private Auto Medication Reconcilliation completed & Yes No provided to patient/care provider Clinical Summary of Care Provided Yes Yes Notes: pt went to hospital for xray as ordered Facility Type [facility] Facility Orders Sent Yes Assessment/Plan Assessment/Plan (1) 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: CODE(S): L97.312 - Non-pressure chronic ulcer of right ankle with fat layer exposed (2) Diabetes mellitus with diabetic polyneuropathy: CODE(S): E11.42 - Type 2 diabetes mellitus with diabetic polyneuropathy (3) Tobacco abuse: CODE(S): Z72.0 - Tobacco use (4) Hyperlipidemia: CODE(S): E78.5 - Hyperlipidemia, unspecified PLAN: Plan Patient seen and evaluated Patient seen on behalf of Dr. Laughlin who is out of office today. I have reviewed previous records and diagnostic data. Patient did have radiographs performed 09/26/2023 of the right ankle and foot demonstrating generalized osteopenia, soft tissue swelling, and mild arthritis of the first MTPJ and TNJ. Recent laboratory data demonstrates WBC 9.8, ESR 15, glucose 210. No recent A1c was performed with last A1c of record 03/09/2019 which was 8% at this time. Recommended updating A1c today. Wound cultures were obtained 09/26/2023 demonstrating MRSA positive. These cultures do reflect previous past cultures of MRSA positive from August and July 2023. Recommended referral to Dr. Robbins. Patient currently on doxycycline 100 mg twice daily for 7 days. I do feel antibiotic should be extended versus possibly switching to Zyvox. Ulceration was debrided as noted in the clinical panel above. Prior to debridement she was locally anesthetized proximal to the ulcerative site consisting of 10 cc 1% lidocaine with epinephrine with block to the sural nerve and superficial peroneal nerve. This is noted to improve patient's tolerance of debridement today. Ulceration to the right lateral ankle measures 1.4 cm x 1.3 cm x 0.5 cm. No localized signs of infection. Change was made in dressings last week for improvement of source control. Dakin's wet-to-dry dressing was applied to the lateral ankle. She is instructed to change dressing daily. Recommended finishing oral antibiotic as instructed with follow-up with infectious disease. There is noted visual improvement of the wound bed with more healthy granular tissue noted following application of the Dakin's. There is still significant amount of pain to palpation about the right lateral ankle and patient will undergo MRI which has been scheduled for 10/11/[address] Laughlin. Recommended adequate protein intake to aid in wound healing. Solomon supplementation is also recommended. Discussed with patient continue proper diabetic diet to aid in wound healing and provide good glycemic control. Discussed glycemic control and lowering of her blood sugar/A1c is important to aid in wound healing. She was again reminded to continue to wear proper fitting shoe gear and to ensure shoe gear is worn at all times for protection of the foot as she is diabetic with significant diminished sensation secondary to peripheral polyneuropathy. Discussed with patient the need for smoking cessation. Discussed impacts of wound healing from her smoking. Discussed with smoking blood flow is diminished to vital organs and extremities which is essential for her wound healing, in addition to affecting oxygen content/saturation of the bloodstream which is also essential for wound healing. Discussed smoking cessation aids today and these were offered. Recommended continued discussion with her primary care physician to aid her in smoking cessation. 5 minutes total was spent on discussion 10/03/23. I discussed signs and symptoms of infection today. Discussed if she notices increasing redness of the skin about the ulcerative site moving up the leg, purulent drainage from the wound site, increasing foul odor from the wound, or if she develops fever greater than 101 degree accompanied by nausea, vomiting, chills that these are signs of a progressing infection and she should report to the ED for IV antibiotics and further evaluation. Patient voices understanding of this. The following work up and care recommendations were made: Dressing: Dakin's wet-to-dry dressing. Change daily Wash: Soap and water Tissue growth optimization: Dakin's Offload: Padded protective dressing of the lateral ankle. Recommended waffle offloading boot while in bed. Vascular: DP and PT pulses weakly palpable bilateral. Monophasic Doppler to left pedal pulses. Edema: Mild edema noted to the lower extremities. Recommended continued Tubigrip compression with elevation of lower extremities. Infection: Currently no local signs of infection. She does demonstrate positive MRSA cultures and is currently on doxycycline for 7 days. Would recommend extending antibiotic versus switch to Zyvox. Recommended referral to infectious disease. Pain: May take [id number] Tylenol for discomfort Host factors: DM type II with peripheral polyneuropathy, MRSA positive cultures, edema, chronic tobacco abuse. I answered all the patient's questions. To return to the wound healing center in 1 week or call sooner if the patient has any questions or concerns.
--- NOTE | 2023-10-10 12:15 | WC ---
called and [facility] reminder that pt has an mri scheduled for tomorrow at 1pm at [facility]. also calling to see if they received call from dr hanna office to set up an appt after we sent referral last week. will await return call.
--- NOTE | 2023-10-18 11:25 | WC ---
3.28.24 RT LAT ANKLE
== END 2023-10-13 23:59 | disposition home or self-care (01) ==
LOC: WC 09:45
PROVIDERS: Internal Medicine; PCP Internal Medicine; Referring Provider Internal Medicine; Visit Provider Student in an Organized Health Care Education/Training Program
DX: L97.312 Non-pressure chronic ulcer of right ankle with fat layer exposed (principal); F25.9 Schizoaffective disorder, unspecified; Z79.4 Long term (current) use of insulin; E11.42 Type 2 diabetes mellitus with diabetic polyneuropathy; I10 Essential (primary) hypertension; E78.5 Hyperlipidemia, unspecified; F41.9 Anxiety disorder, unspecified; K21.9 Gastro-esophageal reflux disease without esophagitis; I83.813 Varicose veins of bilateral lower extremities with pain; F17.210 Nicotine dependence, cigarettes, uncomplicated; Z79.51 Long term (current) use of inhaled steroids; Z79.01 Long term (current) use of anticoagulants; Z79.899 Other long term (current) drug therapy
CPT/HCPCS: 11042; 29581; 36415; 73610; 73630; 80053; 85025; 85652; 86140; 87070; 87075; 87077; 87186; 87205

== ENCOUNTER → 2023-10-11 | Outpatient (CLI) | payer MEDICARE, MEDICAID, SELFPAY ==
--- NOTE | 2023-10-11 13:01 | MRI_ITS ---
STUDY: MRI RIGHT ANKLE WITHOUT CONTRAST REASON FOR EXAM: Female, 63 years old. Abnormal X-ray. R/O Osteomyelitis TECHNIQUE: Standardized fat and water weighted pulse sequences were obtained in all 3 orthogonal planes. COMPARISON: X-ray September 26, 2023 FINDINGS: There is lateral soft tissue swelling with skin thickening. There is focal defect consistent with wound. There is marrow edema of the lateral malleolus of the distal fibula, series 7 image 8. There is accessory navicular incorporated into the distal posterior tibialis tendon. Normal flexor digitorum longus tendon. Normal flexor hallucis longus tendon. There is fluid in the sheath of the peroneus longus and brevis tendons. There is os peroneum. Normal tibialis anterior tendon. Normal extensor hallucis longus tendon. Normal extensor digitorum longus tendons. Normal Achilles tendon and teno-osseous insertion. Normal plantar fascia. There is small plantar spur of the calcaneus. Normal intrinsic muscles of the rearfoot. Normal distal tibiofibular syndesmotic ligamentous complex. Normal lateral ligamentous complex. Normal subtalar ligaments and sinus tarsi. Normal deltoid ligamentous complexes. Normal plantar calcaneonavicular (spring) ligament. There is mild joint space narrowing and spurring of the tibiotalar articulation. Normal talar dome. Normal subtalar articulations. There is mild joint space narrowing and spurring of the talonavicular articulation. Normal calcaneocuboid articulation. Normal navicular-cuneiform articulations. MRI/Lower Ext Joint Only (Routine) IMPRESSION: Osteomyelitis of the lateral malleolus of the distal fibula with soft tissue wound and swelling. Electronically Signed: Dino Coleman MD at 12:18 EDT ,
== END | disposition home or self-care (01) ==
LOC: MRI 12:51
PROVIDERS: PCP Internal Medicine; Referring Provider Internal Medicine; Visit Provider Internal Medicine
DX: L97.312 Non-pressure chronic ulcer of right ankle with fat layer exposed (principal); R93.6 Abnormal findings on diagnostic imaging of limbs
CPT/HCPCS: 73721

== ENCOUNTER 2023-11-07 09:45 | Outpatient (RCR) | payer MEDICARE, MEDICAID, SELFPAY ==
[2023-10-14 00:18] VITALS: BP 113/52; PULSE 80; RESP 18; TEMP 36.3
[2023-10-17 09:32] VITALS: BP 123/76; PULSE 79; RESP 18; TEMP 35.9
--- NOTE | 2023-10-17 10:38 | PCM.WC.PN ---
History of Present Illness Date of Service: 10/17/23 Chief Complaint: Non healing right ankle ulcer History of Wound: Ms. Lam is a 62-year-old who was referred to this facility due to nonhealing right lateral ankle ulcer. Noted a year ago, started out as a bullae and subsequently opened up. She states that over the years, she has had alginate and collagen dressings done at her facility without any significant improvement. History of diabetes mellitus, she is not sure of her most recent A1c but states that it has ranged from 8-13. Also history of tobacco use, smokes daily. There is significant pain around the ulcer but she denies otherwise significant leg pain. Does not wear compression. Mostly sedentary but sleeps in the bed. She feels well otherwise, no chills, fever, nausea, vomiting or change in bowel habit reported. Subjective Subjective This is a 63-year-old female who continues to follow to the wound care center for a right lateral ankle ulceration. Patient is assisted by wheelchair today. Patient states she underwent MRI 10/11/2023 to evaluate right lower extremity ulceration. Nursing facility has assisted in her dressing changes daily. She states the right ankle is painful. She denies constitutional symptoms. Denies further complaints. Objective Data Objective Data Vital Signs: Vital Signs Temp Pulse Resp BP O2 Del Method 96.6 F L 79 18 123/76 H Room Air 10/17/23 09:32 10/17/23 09:32 10/17/23 09:32 10/17/23 09:32 10/17/23 09:32 Oxygen Delivery Method Room Air Physical Exam Const alert, oriented x3 and no apparent distress General Appearance: cooperative HEENT normocephalic Eyes General Eye: normal appearance of both eyes Neck General: normal visual inspection Lymph Lymphatic: no lymphadenopathy noted and no lymphedema noted Resp normal respiratory effort Cardio regular rate and regular rhythm Extremity normal capillary refill, no joint enlargement, no calf tenderness and no pedal edema Extremity Narrative: Vascular: DP and PT pulses palpable. Capillary fill time less than 5 seconds to digits. Normal temperature gradient. Hair growth is absent to digits/foot. Neurologic: Light touch sensation diminished. Gross sensation intact. Protective sensation is significantly diminished secondary to diabetic peripheral polyneuropathy. Dermatologic: Skin does appear well-hydrated. Skin is soft, supple, normal turgor. Right lateral ankle demonstrates ulceration distal to the lateral malleolus to the level of the subcutaneous tissue with mixed fibrogranular layer and serosanguineous drainage with hyperpigmented rim. Ulceration demonstrates no malodor, no purulent drainage, no localized erythema, no increased temperature, no palpable fluctuance/bogginess, no visible abscess formation. Musculoskeletal: Patient is in wheelchair and does have decreased muscle strength of the lower extremities bilateral. Skin no rashes or lesions noted, skin turgor normal and no jaundice Neuro moves all extremities Debridement Note Debridement Note Wound debrided: Right lateral ankle Laterality: Right Wound Grade/Stage: Esqueda stage II Type of Debridement: Excisional debridement Anesthesia Used: 5% Lidocaine Gel Depth: Down to and including healthy tissue and in the subcutaneous layer Percentage of wound debrided: 100 Instrument Used: 5mm curette Tissue Removed: Fibrous, devitalized subcutaneous, biofilm, slough Severity: Fat Layer Exposed Amount of bleeding with debridement: Mild Bleeding Controlled with: Compression and gauze Patient tolerated procedure: Patient tolerated procedure well Post-Debridement Measurements and Additional Note: Post-Debridement Measurements/Treatment - Nurse 1 - General Ulcer Assessment Start: 10/17/23 09:30 Freq: Status: Active Protocol: [email or web address] Activity Type Activity Date Activity User E-sign Co-sign Detail Recorded Client Recorded Date Recorded By Document 10/17/23 09:32 MT Desktop 10/17/23 09:40 MT 10/17/23 09:32 - Today's Visit Information Type of service Follow-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 Any new allergies or adverse reactions No Had a fall/change in ADL's that may No increase risk of falls Signs or symptoms of abuse and/or No neglect since last visit Have you been in the hospital since your No last visit? Has dressing in place as prescribed Yes Has compression in place as prescribed Yes Has offloadiing in place as prescribed N/A Experienced any changes in pain level or No management Left Footwear No Footwear Right Footwear No Footwear Pain Scale: 0-10 Numeric Is Patient Pain Free? No RT Lat Ankle -Description Throbbing, Burning -Intensity 9 -Pain Behavior Grasping Site -Alleviating Factors/Interventions Medication WC - Nurse 1 - General Ulcer Measurement Start: 10/17/23 09:30 Freq: Status: Active Protocol: Activity Type Activity Date Activity User E-sign Co-sign Detail Recorded Client Recorded Date Recorded By Document 10/17/23 09:32 [place] Desktop 10/17/23 09:40 TN 10/17/23 09:32 Wound Center Nurse 1 #1 R Lat Ankle -Current Size (cm) - Length 1.5 -Current Size (cm) - Width 1.2 -Current Size (cm) - Depth 0.5 -Total Square Cm 1.80 -Exudate Amt Medium -Exudate Type Serosanguineous -Wound Margin Distinct, Outline Attached -Granulation Amt Large (67-100%) -Granulation Quality Red -Necrosis Amt Small (1-33%) -Necrotic Tissue Type Adherent Slough -Texture (Lori-wound Skin Appearance) Assessed, Localized Edema -Moisture (Lori-wound Skin Appearance) Assessed -Color (Lori-wound Skin Appearance) Assessed, Hemosiderin Staining -Temperature (Lori-wound Skin No Abnormality Appearance) (Pt Warm) -Tenderness on Palpation (Lori-wound No Skin Appearance) -Ulcer Cleansing Rinsed/ Irrigated with Saline -Foul Odor after Cleansing No -Anesthetic Used 5% Lidocaine Gel - Nurse 2 - General Ulcer CM Notes Start: 10/17/23 09:30 Freq: Status: Active Protocol: Activity Type Activity Date Activity User E-sign Co-sign Detail Recorded Client Recorded Date Recorded By Document 10/17/23 10:13 [facility] Desktop 10/17/23 10:37 [facility] 10/17/23 10:13 Wound Center Nurse 2 -Time 10:13 -Correct Patient Yes -Correct Side, Site, Position Yes -Correct Procedure Yes -Procedure Performed Yes -Type of Procedure Debridement -Clinical Debridement Subcutaneous -Tissue Removed Subcutaneous -Post Debridement (cm) - Length 1.5 -Post Debridement (cm) - Width 1.4 -Post Debridement (cm) - Depth 0.5 -Total Square (Post) (cm) 2.10 -Area of Debridement (cm) - Length 1.5 -Area of Debridement (cm) - Width 1.4 -Total Square (Area) (cm) 2.10 -Tunneling No -Undermining/Tunneling No -Circular Undermining No -Wound/Ulcer Outcome Not Healed -Ulcer Cleansing Rinsed/ Irrigated with Saline -Foul Odor after Cleansing No -Bioengineered Tissue No -Injectable Lidocaine w/ Epi (%) 1 -Injectable Lidocaine w/ Epi (mls) 10 -Bleeding Controlled with Pressure -Treatment Response Procedure Tolerated Well -Assistive Device(s) Wheelchair -Debridement - Subq, 1st 20sq cm Yes Pain Scale: 0-10 Numeric Is Patient Pain Free? 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 Laughlin who is out of office today. I have reviewed previous records and diagnostic data. Patient did have radiographs performed 09/26/2023 of the right ankle and foot demonstrating generalized osteopenia, soft tissue swelling, and mild arthritis of the first MTPJ and TNJ. Recent laboratory data demonstrates WBC 9.8, ESR 15, glucose 210. No recent A1c was performed with last A1c of record 03/09/2019 which was 8% at this time. Recommended updating A1c today. Wound cultures were obtained 09/26/2023 demonstrating MRSA positive. These cultures do reflect previous past cultures of MRSA positive from August and July 2023. Recommended referral to Dr. Robbins. Patient currently on doxycycline 100 mg twice daily for 7 days. I do feel antibiotic should be extended versus possibly switching to linezolid either outpatient or via PICC. Ulceration was debrided as noted in the clinical panel above. Prior to debridement she was locally anesthetized proximal to the ulcerative site consisting of 10 cc 1% lidocaine with epinephrine with block to the sural nerve and superficial peroneal nerve. This is noted to improve patient's tolerance of debridement today. Ulceration to the right lateral ankle measures 1.5 cm x 1.4 cm x 0.5 cm. No localized signs of infection. Change was made in dressings for improvement of source control and will continue this. Dakin's wet-to-dry dressing was applied to the lateral ankle. She is instructed to change dressing daily. She finished oral antibiotic as instructed and has follow-up with infectious disease scheduled 10/30/23. There is noted visual improvement of the wound bed with more healthy granular tissue noted following application of the Dakin's. There is still significant amount of pain to palpation about the right lateral ankle and patient will undergo MRI which has been scheduled for 10/11/[address] Laughlin. Patient did undergo MRI on 10/11/2023 demonstrating lateral soft tissue swelling with skin thickening. There is focal defect consistent with wound. There is marrow edema of the lateral malleolus and distal fibula, series 7 image 8. Impression: Osteomyelitis of the lateral malleolus of the distal fibula with soft tissue wound and swelling. I have reviewed this MRI series and do note the increased marrow edema of the lateral malleolus and series 7 image 8 but also an image 9. This does appear to be at the outer portion of the cortex of the bone as the remaining images do not demonstrate increased signal. I did discuss these images in detail with the patient today in addition to findings with concern for osteomyelitis. I did discuss possible surgical options with the patient in detail today. All options were discussed with the patient in detail including risks and benefits of each procedure. Discussed risk of BKA with patient today. Patient is understanding of this but would like to save the right lower extremity.. Also discussed possible treatment with IV antibiotics and aggressive surgical debridement of the soft tissue. Patient at this time would like to take time to consider options as she is on the oral antibiotic in addition to further discussion with infectious disease. Previous culture results of MRSA positive were reviewed. Due to the patient unable to get into infectious disease for next 2 weeks I did initiate outpatient oral antibiotic therapy today. Rx doxycycline 100 mg twice daily x 14 days and Rx levofloxacin 750 mg twice daily x 14 days. Antibiotic stop date 10/31/2023. Recommended probiotic use with antibiotic and to take with food. Recommended adequate protein intake to aid in wound healing. Solomon supplementation is also recommended. Discussed with patient continue proper diabetic diet to aid in wound healing and provide good glycemic control. Discussed glycemic control and lowering of her blood sugar/A1c is important to aid in wound healing. She was again reminded to continue to wear proper fitting shoe gear and to ensure shoe gear is worn at all times for protection of the foot as she is diabetic with significant diminished sensation secondary to peripheral polyneuropathy. Discussed with patient the need for smoking cessation. Discussed impacts of wound healing from her smoking. Discussed with smoking blood flow is diminished to vital organs and extremities which is essential for her wound healing, in addition to affecting oxygen content/saturation of the bloodstream which is also essential for wound healing. Discussed smoking cessation aids today and these were offered. Recommended continued discussion with her primary care physician to aid her in smoking cessation. 5 minutes total was spent on discussion 10/03/23. I discussed signs and symptoms of infection today. Discussed if she notices increasing redness of the skin about the ulcerative site moving up the leg, purulent drainage from the wound site, increasing foul odor from the wound, or if she develops fever greater than 101 degree accompanied by nausea, vomiting, chills that these are signs of a progressing infection and she should report to the ED for IV antibiotics and further evaluation. Patient voices understanding of this. The following work up and care recommendations were made: Dressing: Dakin's wet-to-dry dressing. Change daily Wash: Soap and water Tissue growth optimization: Dakin's Offload: Padded protective dressing of the lateral ankle. Recommended waffle offloading boot while in bed. Vascular: DP and PT pulses weakly palpable bilateral. Monophasic Doppler to left pedal pulses. Edema: Mild edema noted to the lower extremities. Recommended continued Tubigrip compression with elevation of lower extremities. Infection: Osteomyelitis confirmed of the distal lateral malleolus by MRI 10/11/2023. She does demonstrate positive MRSA cultures and is currently on doxycycline and levofloxacin for 14 days (stop date for 10/31/23). Recommended referral to infectious disease. Pain: May take [id number] Tylenol for discomfort Host factors: DM type II with peripheral polyneuropathy, MRSA positive cultures, edema, chronic tobacco abuse. I answered all the patient's questions. To return to the wound healing center in 1 week or call sooner if the patient has any questions or concerns.
[2023-10-24 09:47] VITALS: BP 149/91; PULSE 91; RESP 18; TEMP 36.4
--- NOTE | 2023-10-24 10:00 | PCM.WC.PN ---
History of Present Illness Date of Service: 10/24/23 Chief Complaint: Non healing right ankle ulcer History of Wound: Ms. Lam is a 62-year-old who was referred to this facility due to nonhealing right lateral ankle ulcer. Noted a year ago, started out as a bullae and subsequently opened up. She states that over the years, she has had alginate and collagen dressings done at her facility without any significant improvement. History of diabetes mellitus, she is not sure of her most recent A1c but states that it has ranged from 8-13. Also history of tobacco use, smokes daily. There is significant pain around the ulcer but she denies otherwise significant leg pain. Does not wear compression. Mostly sedentary but sleeps in the bed. She feels well otherwise, no chills, fever, nausea, vomiting or change in bowel habit reported. Subjective Subjective This is a 63-year-old female who continues to follow to the wound care center for a right lateral ankle ulceration. Patient is assisted by wheelchair today. She states she is taking the antibiotics as instructed and will meet with infectious disease next week. Nursing facility has assisted in her dressing changes daily. She states the right ankle is painful. She denies constitutional symptoms. Denies further complaints. Objective Data Objective Data Vital Signs: Vital Signs Temp Pulse Resp BP O2 Del Method 97.5 F L 91 18 149/91 H Room Air 10/24/23 09:47 10/24/23 09:47 10/24/23 09:47 10/24/23 09:47 10/24/23 09:47 Oxygen Delivery Method Room Air Physical Exam Const alert, oriented x3 and no apparent distress General Appearance: cooperative HEENT normocephalic Eyes General Eye: normal appearance of both eyes Neck General: normal visual inspection Lymph Lymphatic: no lymphadenopathy noted and no lymphedema noted Resp normal respiratory effort Cardio regular rate and regular rhythm Extremity normal capillary refill, no joint enlargement, no calf tenderness and no pedal edema Extremity Narrative: Vascular: DP and PT pulses palpable. Capillary fill time less than 5 seconds to digits. Normal temperature gradient. Hair growth is absent to digits/foot. Neurologic: Light touch sensation diminished. Gross sensation intact. Protective sensation is significantly diminished secondary to diabetic peripheral polyneuropathy. Dermatologic: Skin does appear well-hydrated. Skin is soft, supple, normal turgor. Right lateral ankle demonstrates ulceration distal to the lateral malleolus to the level of the subcutaneous tissue with mixed fibrogranular layer and serosanguineous drainage with hyperpigmented rim. Ulceration demonstrates no malodor, no purulent drainage, no localized erythema, no increased temperature, no palpable fluctuance/bogginess, no visible abscess formation. Musculoskeletal: Patient is in wheelchair and does have decreased muscle strength of the lower extremities bilateral. Skin no rashes or lesions noted, skin turgor normal and no jaundice Neuro moves all extremities Debridement Note Debridement Note Wound debrided: Right lateral ankle Laterality: Right Wound Grade/Stage: Esqueda stage I Type of Debridement: Excisional debridement Anesthesia Used: 5% Lidocaine Gel and - (10 cc 1 1% lidocaine with epinephrine) Depth: Down to and including healthy tissue and in the subcutaneous layer Percentage of wound debrided: 100 Instrument Used: 5mm curette Tissue Removed: Fibrous, devitalized subcutaneous, biofilm, slough Severity: Fat Layer Exposed Amount of bleeding with debridement: Mild Bleeding Controlled with: Compression and gauze Patient tolerated procedure: Patient tolerated procedure well Post-Debridement Measurements and Additional Note: Post-Debridement Measurements/Treatment - Nurse 1 - General Ulcer Assessment Start: 10/17/23 09:30 Freq: Status: Active Protocol: [email or web address].[email or web address] Activity Type Activity Date Activity User E-sign Co-sign Detail Recorded Client Recorded Date Recorded By Document 10/17/23 09:32 MT Desktop 10/17/23 09:40 MT Document 10/24/23 09:47 KW Desktop 10/24/23 09:55 KW 10/17/23 10/24/23 09:32 09:47 - Today's Visit Information Type of service Follow-up Visit Follow-up Visit (Physician/LAND SURVEYOR ASSISTANT (Physician/LAND SURVEYOR ASSISTANT ) ) Arrival Mode Wheelchair Wheelchair Patient Identification Verified (Name & Yes Yes ) Safety Precautions Fall Prevention Vital Signs Temperature (97.8 F-99.1 F) 96.6 F L 97.5 F L Temperature Source Temporal Temporal Pulse Rate (60-100) 79 91 Pulse Location Monitor Monitor Respiratory Rate (12-18) 18 18 Respiratory rate source Observation Observation Oxygen Delivery Method Room Air Room Air Blood Pressure (90/60-120/80) 123/76 H 149/91 H Blood Pressure Mean (mm Hg) 91 110 Source Monitor Monitor Position Semi-Fowlers Semi-Fowlers Blood Pressure Location Left Arm Left Arm History Since Last Visit- (Skip if this is Patient's initial visit) Have you changed medications since your No No last visit? Any new allergies or adverse reactions No No Had a fall/change in ADL's that may No No increase risk of falls Signs or symptoms of abuse and/or No No neglect since last visit Have you been in the hospital since your No No last visit? Has dressing in place as prescribed Yes Yes Has compression in place as prescribed Yes Has offloadiing in place as prescribed N/A Experienced any changes in pain level or No management Left Footwear No Footwear Slipper Right Footwear No Footwear Slipper Pain Scale: 0-10 Numeric Is Patient Pain Free? No Yes RT Lat Ankle -Description Throbbing, Burning -Intensity 9 -Pain Behavior Grasping Site -Alleviating Factors/Interventions Medication WC - Nurse 1 - General Ulcer Measurement Start: 10/17/23 09:30 Freq: Status: Active Protocol: Activity Type Activity Date Activity User E-sign Co-sign Detail Recorded Client Recorded Date Recorded By Document 10/17/23 09:32 [facility] 10/17/23 09:40 MT Document 10/24/23 09:47 KW Desktop 10/24/23 09:55 KW 10/17/23 10/24/23 09:32 09:47 Wound Center Nurse 1 #1 R Lat Ankle -Current Size (cm) - Length 1.5 1.1 -Current Size (cm) - Width 1.2 0.5 -Current Size (cm) - Depth 0.5 -Total Square Cm 1.80 0.55 -Exudate Amt Medium Small -Exudate Type Serosanguineous Serosanguineous -Wound Margin Distinct, Thickened Outline Attached -Granulation Amt Large (67-100%) Medium (34-66%) -Granulation Quality Red Red -Necrosis Amt Small (1-33%) Small (1-33%) -Necrotic Tissue Type Adherent Slough Adherent Slough -Texture (Lori-wound Skin Appearance) Assessed, Assessed, Localized Edema Localized Edema -Moisture (Lori-wound Skin Appearance) Assessed Assessed -Color (Lori-wound Skin Appearance) Assessed, Assessed Hemosiderin Staining -Temperature (Lori-wound Skin No Abnormality No Abnormality Appearance) (Pt Warm) (Pt Warm) -Tenderness on Palpation (Lori-wound No Skin Appearance) -Ulcer Cleansing Rinsed/ Rinsed/ Irrigated with Irrigated with Saline Saline -Foul Odor after Cleansing No -Anesthetic Used 5% Lidocaine 5% Lidocaine Gel Gel WC - Nurse 2 - General Ulcer CM Notes Start: 10/17/23 09:30 Freq: Status: Active Protocol: Activity Type Activity Date Activity User E-sign Co-sign Detail Recorded Client Recorded Date Recorded By Document 10/17/23 10:13 [facility] Desktop 10/17/23 10:37 [facility] 10/17/23 10:13 Wound Center Nurse 2 -Time 10:13 -Correct Patient Yes -Correct Side, Site, Position Yes -Correct Procedure Yes -Procedure Performed Yes -Type of Procedure Debridement -Clinical Debridement Subcutaneous -Tissue Removed Subcutaneous -Post Debridement (cm) - Length 1.5 -Post Debridement (cm) - Width 1.4 -Post Debridement (cm) - Depth 0.5 -Total Square (Post) (cm) 2.10 -Area of Debridement (cm) - Length 1.5 -Area of Debridement (cm) - Width 1.4 -Total Square (Area) (cm) 2.10 -Tunneling No -Undermining/Tunneling No -Circular Undermining No -Wound/Ulcer Outcome Not Healed -Ulcer Cleansing Rinsed/ Irrigated with Saline -Foul Odor after Cleansing No -Bioengineered Tissue No -Injectable Lidocaine w/ Epi (%) 1 -Injectable Lidocaine w/ Epi (mls) 10 -Bleeding Controlled with Pressure -Treatment Response Procedure Tolerated Well -Assistive Device(s) Wheelchair -Debridement - Subq, 1st 20sq cm Yes Pain Scale: 0-10 Numeric Is Patient Pain Free? No RT Lat Ankle -Intensity 10 -Duration (hours) Acute -Pain Aggravating Factors Debridement -Alleviating Factors/Interventions None -Comments injected w/ lidocaine WC - Nurse 3 - General Ulcer D/C NN Start: 10/17/23 09:30 Freq: Status: Active Protocol: Activity Type Activity Date Activity User E-sign Co-sign Detail Recorded Client Recorded Date Recorded By Document 10/17/23 10:51 Desktop 10/17/23 10:52 10/17/23 10:51 Wound Care Center Nurse 3 #1 R Lat Ankle -Ulcer Cleansing Not Cleansed -Foul Odor after Cleansing No -Primary Dressing Covered/Secured with Dry Gauze,Dry Gauze & Roll Gauze,Secured with Tape -Wound Comment(s) dakins soaked gauze then abd Right -Compression Wrap Daljit Wrap Pain Scale: 0-10 Numeric Is Patient Pain Free? 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 Laughlin who is out of office today. I have reviewed previous records and diagnostic data. Patient did have radiographs performed 09/26/2023 of the right ankle and foot demonstrating generalized osteopenia, soft tissue swelling, and mild arthritis of the first MTPJ and TNJ. Recent laboratory data demonstrates WBC 9.8, ESR 15, glucose 210. No recent A1c was performed with last A1c of record 03/09/2019 which was 8% at this time. Recommended updating A1c. Wound cultures were obtained 09/26/2023 demonstrating MRSA positive. These cultures do reflect previous past cultures of MRSA positive from August and July 2023. Recommended referral to Dr. Robbins. Patient finished doxycycline 100 mg twice daily for 7 days. I do feel antibiotic should be extended versus possibly switching to linezolid either outpatient or via PICC. Ulceration was debrided as noted in the clinical panel above. Prior to debridement she was locally anesthetized proximal to the ulcerative site consisting of 10 cc 1% lidocaine with epinephrine with block to the sural nerve and superficial peroneal nerve. This is noted to improve patient's tolerance of debridement today. Ulceration to the right lateral ankle measures 1.0 cm x 0.5 cm x 0.5 cm. No localized signs of infection. Change was made in dressings for improvement of source control and will continue this. Dakin's wet-to-dry dressing was applied to the lateral ankle. She is instructed to change dressing daily. She finished oral antibiotic as instructed and has follow-up with infectious disease scheduled 10/30/23. There is noted visual improvement of the wound bed with more healthy granular tissue noted following application of the Dakin's. There is noted improvement with reduction in size versus her previous visit. There is still significant amount of pain to palpation about the right lateral ankle and patient underwent MRI 10/11/[address] Laughlin. MRI on 10/11/2023 demonstrating lateral soft tissue swelling with skin thickening. There is focal defect consistent with wound. There is marrow edema of the lateral malleolus and distal fibula, series 7 image 8. Impression: Osteomyelitis of the lateral malleolus of the distal fibula with soft tissue wound and swelling. I have reviewed this MRI series and do note the increased marrow edema of the lateral malleolus and series 7 image 8 but also an image 9. This does appear to be at the outer portion of the cortex of the bone as the remaining images do not demonstrate increased signal. I did discuss these images in detail with the patient today in addition to findings with concern for osteomyelitis. I did discuss possible surgical options with the patient in detail 10/17/2023. All options were discussed with the patient in detail including risks and benefits of each procedure. Discussed risk of BKA with patient today. Patient is understanding of this but would like to save the right lower extremity.. Also discussed possible treatment with IV antibiotics and aggressive surgical debridement of the soft tissue. Patient at this time would like to take time to consider options as she is on the oral antibiotic in addition to further discussion with infectious disease. Previous culture results of MRSA positive were reviewed. Due to the patient unable to get into infectious disease for next 2 weeks I did initiate outpatient oral antibiotic therapy on 10/17/2023. Rx doxycycline 100 mg twice daily x 14 days and Rx levofloxacin 750 mg twice daily x 14 days. Antibiotic stop date 10/31/2023. Recommended probiotic use with antibiotic and to take with food. She continues to take antibiotics as instructed and there is noted improvement in her wound with decrease in size and more healthy appearing tissue. Recommended adequate protein intake to aid in wound healing. Solomon supplementation is also recommended. Discussed with patient continue proper diabetic diet to aid in wound healing and provide good glycemic control. Discussed glycemic control and lowering of her blood sugar/A1c is important to aid in wound healing. She was again reminded to continue to wear proper fitting shoe gear and to ensure shoe gear is worn at all times for protection of the foot as she is diabetic with significant diminished sensation secondary to peripheral polyneuropathy. Discussed with patient the need for smoking cessation. Discussed impacts of wound healing from her smoking. Discussed with smoking blood flow is diminished to vital organs and extremities which is essential for her wound healing, in addition to affecting oxygen content/saturation of the bloodstream which is also essential for wound healing. Discussed smoking cessation aids today and these were offered. Recommended continued discussion with her primary care physician to aid her in smoking cessation. 5 minutes total was spent on discussion 10/03/23. I discussed signs and symptoms of infection today. Discussed if she notices increasing redness of the skin about the ulcerative site moving up the leg, purulent drainage from the wound site, increasing foul odor from the wound, or if she develops fever greater than 101 degree accompanied by nausea, vomiting, chills that these are signs of a progressing infection and she should report to the ED for IV antibiotics and further evaluation. Patient voices understanding of this. The following work up and care recommendations were made: Dressing: Dakin's wet-to-dry dressing. Change daily Wash: Soap and water Tissue growth optimization: Dakin's Offload: Padded protective dressing of the lateral ankle. Recommended waffle offloading boot while in bed. Vascular: DP and PT pulses weakly palpable bilateral. Monophasic Doppler to left pedal pulses. Edema: Mild edema noted to the lower extremities. Recommended continued Tubigrip compression with elevation of lower extremities. Infection: Osteomyelitis confirmed of the distal lateral malleolus by MRI 10/11/2023. She does demonstrate positive MRSA cultures and is currently on doxycycline and levofloxacin for 14 days (stop date for 10/31/23). Recommended referral to infectious disease. Pain: May take [id number] Tylenol for discomfort Host factors: DM type II with peripheral polyneuropathy, MRSA positive cultures, edema, chronic tobacco abuse. I answered all the patient's questions. To return to the wound healing center in 1 week or call sooner if the patient has any questions or concerns.
[2023-10-31 09:37] VITALS: BP 108/59; PULSE 70; RESP 18; TEMP 36.8
--- NOTE | 2023-10-31 12:22 | PN.PCM_ITS ---
History of Present Illness Chief Complaint: Non healing right ankle ulcer History of Wound: Ms. Lam is a 62-year-old who was referred to this facility due to nonhealing right lateral ankle ulcer. Noted a year ago, started out as a bullae and subsequently opened up. She states that over the years, she has had alginate and collagen dressings done at her facility without any significant improvement. History of diabetes mellitus, she is not sure of her most recent A1c but states that it has ranged from 8-13. Also history of tobacco use, smokes daily. There is significant pain around the ulcer but she denies otherwise significant leg pain. Does not wear compression. Mostly sedentary but sleeps in the bed. She feels well otherwise, no chills, fever, nausea, vomiting or change in bowel habit reported. Subjective Subjective This is a 63-year-old female who continues to follow to the wound care center for a right lateral ankle ulceration. Patient is assisted by wheelchair today. She states she is taking the antibiotics as instructed. There was confusion with her transportation for appointment with infectious disease and thus she did miss the appointment. Next scheduled appointment with infectious disease is 11/20/2023. Nursing facility has assisted in her dressing changes daily. She states the right ankle is painful but is improving. She denies constitutional symptoms. Denies further complaints. Objective Data Objective Data Vital Signs: Vital Signs Temp Pulse Resp BP O2 Del Method 98.3 F 70 18 108/59 L Room Air 10/31/23 09:37 10/31/23 09:37 10/31/23 09:37 10/31/23 09:37 10/24/23 09:47 Oxygen Delivery Method Room Air Physical Exam Const alert, oriented x3 and no apparent distress General Appearance: cooperative HEENT normocephalic Eyes General Eye: normal appearance of both eyes Neck General: normal visual inspection Lymph Lymphatic: no lymphadenopathy noted and no lymphedema noted Resp normal respiratory effort Cardio regular rate and regular rhythm Extremity normal capillary refill, no joint enlargement, no calf tenderness and no pedal edema Extremity Narrative: Vascular: DP and PT pulses palpable. Capillary fill time less than 5 seconds to digits. Normal temperature gradient. Hair growth is absent to digits/foot. Neurologic: Light touch sensation diminished. Gross sensation intact. Protective sensation is significantly diminished secondary to diabetic per ipheral polyneuropathy. Dermatologic: Skin does appear well-hydrated. Skin is soft, supple, normal turgor. Right lateral ankle demonstrates ulceration distal to the lateral malleolus to the level of the subcutaneous tissue with mixed fibrogranular layer and serosanguineous drainage with hyperpigmented rim. Ulceration demonstrates no malodor, no purulent drainage, no localized erythema, no increased temperature, no palpable fluctuance/bogginess, no visible abscess formation. Musculoskeletal: Patient is in wheelchair and does have decreased muscle strength of the lower extremities bilateral. Skin no rashes or lesions noted, skin turgor normal and no jaundice Neuro moves all extremities Debridement Note Debridement Note Wound debrided: Right lateral ankle Laterality: Right Wound Grade/Stage: Esqueda stage II Type of Debridement: Excisional debridement Anesthesia Used: 5% Lidocaine Gel Depth: Down to and including healthy tissue and in the subcutaneous layer Percentage of wound debrided: 100 Instrument Used: 3mm curette Tissue Removed: Fibrous, devitalized subcutaneous, biofilm, slough Severity: Fat Layer Exposed Amount of bleeding with debridement: Mild Bleeding Controlled with: Compression and gauze Patient tolerated procedure: Patient tolerated procedure well Post-Debridement Measurements and Additional Note: Post-Debridement Measurements/Treatment - Nurse 1 - General Ulcer Assessment Start: 10/17/23 09:30 Freq: Status: Active Protocol: CLOVIS Activity Type Activity Date Activity User E-sign Co-sign Detail Recorded Client Recorded Date Recorded By Document 10/17/23 09:32 MT Desktop 10/17/23 09:40 MT Document 10/24/23 09:47 KW Desktop 10/24/23 09:55 KW Document 10/31/23 09:37 DL Desktop 10/31/23 09:47 DL 10/17/23 10/24/23 10/31/23 09:32 09:47 09:37 - Today's Visit Information Type of service Follow-up Visit Follow-up Visit Follow-up Visit (Physician/AMMUNITION ASSEMBLY I LABORER (Physician/AMMUNITION ASSEMBLY I LABORER (Physician/AMMUNITION ASSEMBLY I LABORER ) ) ) Arrival Mode Wheelchair Wheelchair Wheelchair Transfer Assistance None Patient Identification Verified (Name & Yes Yes Yes ) Patient Requires Transmission-Based No Precautions Safety Precautions Fall Prevention Finger Stick Blood Sugar(mg/dl) (if 110 indicated): Blood Sugar Stated by Patient Vital Signs Temperature (97.8 F-99.1 F) 96.6 F L 97.5 F L 98.3 F Temperature Source Temporal Temporal Temporal Pulse Rate (60-100) 79 91 70 Pulse Location Monitor Monitor Monitor Respiratory Rate (12-18) 18 18 18 Respiratory rate source Observation Observation Observation Oxygen Delivery Method Room Air Room Air Blood Pressure (90/60-120/80) 123/76 H 149/91 H 108/59 L Blood Pressure Mean (mm Hg) 91 110 75 Source Monitor Monitor Monitor Position Semi-Fowlers Semi-Fowlers Blood Pressure Location Left Arm Left Arm History Since Last Visit- (Skip if this is Patient's initial visit) Have you changed medications since your No No No last visit? Any new allergies or adverse reactions No No No Had a fall/change in ADL's that may No No No increase risk of falls Signs or symptoms of abuse and/or No No No neglect since last visit Have you been in the hospital since your No No No last visit? Has dressing in place as prescribed Yes Yes Yes Has compression in place as prescribed Yes Yes Has offloadiing in place as prescribed N/A Yes Experienced any changes in pain level or No No management Left Footwear No Footwear Slipper Right Footwear No Footwear Slipper Pain Scale: 0-10 Numeric Is Patient Pain Free? No Yes Yes RT Lat Ankle -Description Throbbing, Burning -Intensity 9 -Pain Behavior Grasping Site -Alleviating Factors/Interventions Medication WC - Nurse 1 - General Ulcer Measurement Start: 10/17/23 09:30 Freq: Status: Active Protocol: Activity Type Activity Date Activity User E-sign Co-sign Detail Recorded Client Recorded Date Recorded By Document 10/17/23 09:32 MT Desktop 10/17/23 09:40 MT Document 10/24/23 09:47 KW Desktop 10/24/23 09:55 KW Document 10/31/23 09:37 DL Desktop 10/31/23 09:47 DL 10/17/23 10/24/23 10/31/23 09:32 09:47 09:37 Wound Center Nurse 1 #1 R Lat Ankle -Current Size (cm) - Length 1.5 1.1 0.8 -Current Size (cm) - Width 1.2 0.5 0.4 -Current Size (cm) - Depth 0.5 0.3 -Total Square Cm 1.80 0.55 0.32 -Undermining/Tunneling Starts (O'clock 7 ) -Undermining/Tunneling Ends (O'clock) 4 -Maximum Distance (cm) 0.4 -Exudate Amt Medium Small Medium -Exudate Type Serosanguineous Serosanguineous Serosanguineous -Wound Margin Distinct, Thickened Thickened & Outline Rolled Under Attached -Granulation Amt Large (67-100%) Medium (34-66%) Small (1-33%) -Granulation Quality Red Red Red -Necrosis Amt Small (1-33%) Small (1-33%) Small (1-33%) -Necrotic Tissue Type Adherent Slough Adherent Slough Adherent Slough -Structure Exposed N/A -Texture (Lori-wound Skin Appearance) Assessed, Assessed, Scarring Localized Edema Localized Edema -Moisture (Lori-wound Skin Appearance) Assessed Assessed Maceration -Color (Lori-wound Skin Appearance) Assessed, Assessed Hemosiderin Hemosiderin Staining Staining -Temperature (Lori-wound Skin No Abnormality No Abnormality No Abnormality Appearance) (Pt Warm) (Pt Warm) (Pt Warm) -Tenderness on Palpation (Lori-wound No No Skin Appearance) -Ulcer Cleansing Rinsed/ Rinsed/ Soap and Water Irrigated with Irrigated with Saline Saline -Foul Odor after Cleansing No No -Anesthetic Used 5% Lidocaine 5% Lidocaine 5% Lidocaine Gel Gel Gel Right Calf (cm) 36 Right Ankle (cm) 22.7 WC - Nurse 2 - General Ulcer CM Notes Start: 10/17/23 09:30 Freq: Status: Active Protocol: Activity Type Activity Date Activity User E-sign Co-sign Detail Recorded Client Recorded Date Recorded By Document 10/17/23 10:13 [employer] 10/17/23 10:37 Pet Ready Document 10/24/23 10:01 [employer] 10/24/23 10:15 Fridge Document 10/31/23 09:59 Pet Ready [employer] 10/31/23 10:10 [facility] 10/17/23 10/24/23 10/31/23 10:13 10:01 09:59 Wound Center Nurse 2 #1 R Lat Ankle -Time 10:13 10:01 09:59 -Correct Patient Yes Yes Yes -Correct Side, Site, Position Yes Yes Yes -Correct Procedure Yes Yes Yes -Procedure Performed Yes Yes Yes -Type of Procedure Debridement Debridement Debridement -Clinical Debridement Subcutaneous Subcutaneous Subcutaneous -Tissue Removed Subcutaneous Subcutaneous Subcutaneous -Post Debridement (cm) - Length 1.5 1 0.9 -Post Debridement (cm) - Width 1.4 0.5 0.5 -Post Debridement (cm) - Depth 0.5 0.5 0.3 -Total Square (Post) (cm) 2.10 0.5 0.45 -Area of Debridement (cm) - Length 1.5 1 0.9 -Area of Debridement (cm) - Width 1.4 0.5 0.5 -Total Square (Area) (cm) 2.10 0.5 0.45 -Tunneling No No No -Undermining/Tunneling No No No -Circular Undermining No No No -Wound/Ulcer Outcome Not Healed Not Healed Not Healed -Ulcer Cleansing Rinsed/ Rinsed/ Rinsed/ Irrigated with Irrigated with Irrigated with Saline Saline Saline -Foul Odor after Cleansing No No No -Bioengineered Tissue No No -Injectable Lidocaine w/ Epi (%) 1 1 1 -Injectable Lidocaine w/ Epi (mls) 10 10 10 -Bleeding Controlled with Pressure Pressure Pressure -Treatment Response Procedure Procedure Procedure Tolerated Well Tolerated Well Tolerated Well -Assistive Device(s) Wheelchair -Debridement - Subq, 1st 20sq cm Yes Yes Yes Pain Scale: 0-10 Numeric Is Patient Pain Free? No No Yes RT Lat Ankle -Description Aching -Intensity 10 8 -Duration (hours) Acute Chronic -Pain Behavior Facial Grimacing -Pain Aggravating Factors Debridement Sitting, Debridement -Alleviating Factors/Interventions None Medication -Comments injected w/ given lidocaine injectable lido w/ epi prior to debridement WC - Nurse 3 - General Ulcer D/C NN Start: 10/17/23 09:30 Freq: Status: Active Protocol: Activity Type Activity Date Activity User E-sign Co-sign Detail Recorded Client Recorded Date Recorded By Document 10/17/23 10:51 Desktop 10/17/23 10:52 Document 10/24/23 10:22 [facility] Desktop 10/24/23 10:23 [facility] Document 10/31/23 11:54 DL [id number] 10/31/23 11:56 DL 10/17/23 10/24/23 10/31/23 10:51 10:22 11:54 Wound Care Center Nurse 3 #1 R Lat Ankle -Ulcer Cleansing Not Cleansed Rinsed/ Rinsed/ Irrigated with Irrigated with Saline Saline -Foul Odor after Cleansing No No No -Other Dressing dakins moist dakins gauze -Primary Dressing Covered/Secured with Dry Gauze,Dry Dry Gauze & Dry Gauze & Gauze & Roll Roll Gauze, Roll Gauze, Gauze,Secured Secured with Secured with with Tape Tape Tape -Other Covering abd ABD -Wound Comment(s) dakins soaked gauze then abd Right -Compression Wrap Daljit Wrap Daljit Wrap Daljit Wrap Treatment Response Procedure Procedure Tolerated Well Tolerated Well Pain Scale: 0-10 Numeric Is Patient Pain Free? Yes Yes Yes Teaching: Wound Center wound status -Person Taught Patient -Teaching Method Discussion -Response to teaching Verbalize understanding WC - Visit Discharge Discharge Condition Stable Stable Stable Ambulatory Status Wheelchair Wheelchair Wheelchair Transportation Private Auto e[facility] ECF Clinical Summary of Care Provided Yes Facility Type [facility] Facility Orders Sent Yes Assessment/Plan Assessment/Plan (1) 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: CODE(S): L97.312 - Non-pressure chronic ulcer of right ankle with fat layer exposed (2) Diabetes mellitus with diabetic polyneuropathy: CODE(S): E11.42 - Type 2 diabetes mellitus with diabetic polyneuropathy (3) Tobacco abuse: CODE(S): Z72.0 - Tobacco use (4) Hyperlipidemia: CODE(S): E78.5 - Hyperlipidemia, unspecified (5) Ankle osteomyelitis, right: CODE(S): M86.9 - Osteomyelitis, unspecified PLAN: Plan Patient seen and evaluated Patient seen on behalf of Dr. Laughlin who is out of office today. I have reviewed previous records and diagnostic data. Patient did have radiographs performed 09/26/2023 of the right ankle and foot demonstrating generalized osteopenia, soft tissue swelling, and mild arthritis of the first MTPJ and TNJ. Recent laboratory data demonstrates WBC 9.8, ESR 15, glucose 210. No recent A1c was performed with last A1c of record 03/09/2019 which was 8% at this time. Recommended updating A1c. Wound cultures were obtained 09/26/2023 demonstrating MRSA positive. These cultures do reflect previous past cultures of MRSA positive from August and July 2023. Recommended referral to Dr. Robbins. Patient finished doxycycline 100 mg twice daily for 7 days. I do feel antibiotic should be extended versus possibly switching to linezolid either outpatient or via PICC. Ulceration was debrided as noted in the clinical panel above. Prior to debridement she was locally anesthetized proximal to the ulcerative site consisting of 10 cc 1% lidocaine with epinephrine with block to the sural nerve and superficial peroneal nerve. This is noted to improve patient's tolerance of debridement today. Ulceration to the right lateral ankle measures 0.9 cm x 0.5 cm x 0.3 cm. No localized signs of infection. Change was made in dressings for improvement of source control and will continue this. Dakin's wet-to-dry dressing was applied to the lateral ankle. She is instructed to change dressing daily. She is continuing oral antibiotic as instructed and has follow-up with infectious disease scheduled 11/20/23, as she missed appointment 10/30/23 due to confusion from her transportation service. There is noted visual improvement of the wound bed with more healthy granular tissue noted following application of the Dakin's and with continued antibiotics. There is noted improvement with reduction in size versus her previous visit. There is still significant amount of pain to palpation about the right lateral ankle and patient underwent MRI 10/11/[address] Laughlin. MRI on 10/11/2023 demonstrating lateral soft tissue swelling with skin thickening. There is focal defect consistent with wound. There is marrow edema of the lateral malleolus and distal fibula, series 7 image 8. Impression: Osteomyelitis of the lateral malleolus of the distal fibula with soft tissue wound and swelling. I have reviewed this MRI series and do note the increased marrow edema of the lateral malleolus and series 7 image 8 but also an image 9. This does appear to be at the outer portion of the cortex of the bone as the remaining images do not demonstrate increased signal. I did discuss these images in detail with the patient today in addition to findings with concern for osteomyelitis. I did discuss possible surgical options with the patient in detail 10/17/2023. All options were discussed with the patient in detail including risks and benef its of each procedure. Discussed risk of BKA with patient today. Patient is understanding of this but would like to save the right lower extremity.. Also discussed possible treatment with IV antibiotics and aggressive surgical debridement of the soft tissue. Patient at this time would like to take time to consider options as she is on the oral antibiotic in addition to further discussion with infectious disease. Previous culture results of MRSA positive were reviewed. Due to the patient unable to get into infectious disease I did initiate outpatient oral antibiotic therapy on 10/17/2023. Rx doxycycline 100 mg twice daily x 14 days and Rx levofloxacin 750 mg twice daily x 14 days. Antibiotic stop date for first round 10/31/2023. This antibiotic regimen was extended due to next infectious disease appointment on 11/20/2023 with new stop date of antibiotics 11/15/2023. Recommended probiotic use with antibiotic and to take with food. She continues to take antibiotics as instructed and there is noted improvement in her wound with decrease in size and more healthy appearing tissue. Recommended adequate protein intake to aid in wound healing. Solomon supplementation is also recommended. Discussed with patient continue proper diabetic diet to aid in wound healing and provide good glycemic control. Discussed glycemic control and lowering of her blood sugar/A1c is important to aid in wound healing. She was again reminded to continue to wear proper fitting shoe gear and to ensure shoe gear is worn at all times for protection of the foot as she is diabetic with significant diminished sensation secondary to peripheral polyneuropathy. Discussed with patient the need for smoking cessation. Discussed impacts of wound healing from her smoking. Discussed with smoking blood flow is diminished to vital organs and extremities which is essential for her wound healing, in addition to affecting oxygen content/saturation of the bloodstream which is also essential for wound healing. Discussed smoking cessation aids today and these were offered. Recommended continued discussion with her primary care physician to aid her in smoking cessation. 5 minutes total was spent on discussion 10/03/23. I discussed signs and symptoms of infection today. Discussed if she notices increasing redness of the skin about the ulcerative site moving up the leg, purulent drainage from the wound site, increasing foul odor from the wound, or if she develops fever greater than 101 degree accompanied by nausea, vomiting, chills that these are signs of a progressing infection and she should report to the ED for IV antibiotics and further evaluation. Patient voices understanding of this. The following work up and care recommendations were made: Dressing: Dakin's wet-to-dry dressing. Change daily Wash: Soap and water Tissue growth optimization: Dakin's Offload: Padded protective dressing of the lateral ankle. Recommended waffle offloading boot while in bed. Vascular: DP and PT pulses weakly palpable bilateral. Monophasic Doppler to left pedal pulses. Edema: Mild edema noted to the lower extremities. Recommended continued Tubigrip compression with elevation of lower extremities. Infection: Osteomyelitis confirmed of the distal lateral malleolus by MRI 10/11/2023. She does demonstrate positive MRSA cultures and is currently on doxycycline and levofloxacin for 14 days, this was extended (stop date now for 11/15/23). Referral to infectious disease, next appointment 11/20/23. Pain: May take [id number] Tylenol for discomfort Host factors: DM type II with peripheral polyneuropathy, MRSA positive cultures, edema, chronic tobacco abuse. I answered all the patient's questions. To return to the wound healing center in 1 week or call sooner if the patient has any questions or concerns.
--- NOTE | 2023-11-04 14:09 | WC ---
received call from TAVON @ [facility]. States pt's orders to con't w/ antibiotics sent from office visit last were missed and they were going to start today. Will update Dr Grove.
[2023-11-07 09:41] VITALS: BP 111/47; PULSE 67; RESP 18; TEMP 36.4
--- NOTE | 2023-11-07 12:24 | PCM.WC.PN ---
History of Present Illness Date of Service: 11/07/23 Chief Complaint: Non healing right ankle ulcer History of Wound: Ms. Lam is a 62-year-old who was referred to this facility due to nonhealing right lateral ankle ulcer. Noted a year ago, started out as a bullae and subsequently opened up. She states that over the years, she has had alginate and collagen dressings done at her facility without any significant improvement. History of diabetes mellitus, she is not sure of her most recent A1c but states that it has ranged from 8-13. Also history of tobacco use, smokes daily. There is significant pain around the ulcer but she denies otherwise significant leg pain. Does not wear compression. Mostly sedentary but sleeps in the bed. She feels well otherwise, no chills, fever, nausea, vomiting or change in bowel habit reported. Subjective Subjective This is a 63-year-old female who continues to follow to the wound care center for a right lateral ankle ulceration. Patient is assisted by wheelchair today. She states she is taking the antibiotics as instructed. Will see infectious disease is 11/20/2023. Nursing facility has assisted in her dressing changes daily. Nursing states wound is improving. She states the right ankle is painful but is improving. She denies constitutional symptoms. Denies further complaints. Objective Data Objective Data Vital Signs: Vital Signs Temp Pulse Resp BP O2 Del Method 97.5 F L 67 18 111/47 L Room Air 11/07/23 09:41 11/07/23 09:41 11/07/23 09:41 11/07/23 09:41 10/24/23 09:47 Oxygen Delivery Method Room Air Physical Exam Const alert, oriented x3 and no apparent distress General Appearance: cooperative HEENT normocephalic Eyes General Eye: normal appearance of both eyes Neck General: normal visual inspection Lymph Lymphatic: no lymphadenopathy noted and no lymphedema noted Resp normal respiratory effort Cardio regular rate and regular rhythm Extremity normal capillary refill, no joint enlargement, no calf tenderness and no pedal edema Extremity Narrative: Vascular: DP and PT pulses palpable. Capillary fill time less than 5 seconds to digits. Normal temperature gradient. Hair growth is absent to digits/foot. Neurologic: Light touch sensation diminished. Gross sensation intact. Protective sensation is significantly diminished secondary to diabetic peripheral polyneuropathy. Dermatologic: Skin does appear well-hydrated. Skin is soft, supple, normal turgor. Right lateral ankle demonstrates ulceration distal to the lateral malleolus to the level of the subcutaneous tissue with mixed fibrogranular layer and serosanguineous drainage with hyperpigmented rim. There is some periwound maceration noted. Ulceration demonstrates no malodor, no purulent drainage, no localized erythema, no increased temperature, no palpable fluctuance/bogginess, no visible abscess formation. Musculoskeletal: Patient is in wheelchair and does have decreased muscle strength of the lower extremities bilateral. Skin no rashes or lesions noted, skin turgor normal and no jaundice Neuro moves all extremities Debridement Note Debridement Note Wound debrided: Right lateral ankle Laterality: Right Wound Grade/Stage: Esqueda stage II Type of Debridement: Excisional debridement Anesthesia Used: 5% Lidocaine Gel and - (10 cc 1% lidocaine with epinephrine) Depth: Down to and including healthy tissue and in the subcutaneous layer Percentage of wound debrided: 100 Instrument Used: 5mm curette Tissue Removed: Fibrous, devitalized subcutaneous, biofilm, slough Severity: Fat Layer Exposed Amount of bleeding with debridement: Mild Bleeding Controlled with: Compression and gauze Patient tolerated procedure: Patient tolerated procedure well Post-Debridement Measurements and Additional Note: Post-Debridement Measurements/Treatment - Nurse 1 - General Ulcer Assessment Start: 10/17/23 09:30 Freq: Status: Active Protocol: CLOVIS Activity Type Activity Date Activity User E-sign Co-sign Detail Recorded Client Recorded Date Recorded By Document 10/17/23 09:32 MT Desktop 10/17/23 09:40 MT Document 10/24/23 09:47 KW Desktop 10/24/23 09:55 KW Document 10/31/23 09:37 DL Desktop 10/31/23 09:47 DL Document 11/07/23 09:41 RB Desktop 11/07/23 09:43 RB 10/17/23 10/24/23 10/31/23 09:32 09:47 09:37 - Today's Visit Information Type of service Follow-up Visit Follow-up Visit Follow-up Visit (Physician/DEEP SUBMERGENCE VEHICLE CREWMEMBER (Physician/DEEP SUBMERGENCE VEHICLE CREWMEMBER (Physician/DEEP SUBMERGENCE VEHICLE CREWMEMBER ) ) ) Arrival Mode Wheelchair Wheelchair Wheelchair Transfer Assistance None Patient Identification Verified (Name & Yes Yes Yes ) Patient Requires Transmission-Based No Precautions Safety Precautions Fall Prevention Finger Stick Blood Sugar(mg/dl) (if 110 indicated): Blood Sugar Stated by Patient Vital Signs Temperature (97.8 F-99.1 F) 96.6 F L 97.5 F L 98.3 F Temperature Source Temporal Temporal Temporal Pulse Rate (60-100) 79 91 70 Pulse Location Monitor Monitor Monitor Respiratory Rate (12-18) 18 18 18 Respiratory rate source Observation Observation Observation Oxygen Delivery Method Room Air Room Air Blood Pressure (90/60-120/80) 123/76 H 149/91 H 108/59 L Blood Pressure Mean (mm Hg) 91 110 75 Source Monitor Monitor Monitor Position Semi-Fowlers Semi-Fowlers Blood Pressure Location Left Arm Left Arm History Since Last Visit- (Skip if this is Patient's initial visit) Have you changed medications since your No No No last visit? Any new allergies or adverse reactions No No No Had a fall/change in ADL's that may No No No increase risk of falls Signs or symptoms of abuse and/or No No No neglect since last visit Have you been in the hospital since your No No No last visit? Has dressing in place as prescribed Yes Yes Yes Has compression in place as prescribed Yes Yes Has offloadiing in place as prescribed N/A Yes Experienced any changes in pain level or No No management Left Footwear No Footwear Slipper Right Footwear No Footwear Slipper Pain Scale: 0-10 Numeric Is Patient Pain Free? No Yes Yes RT Lat Ankle -Description Throbbing, Burning -Intensity 9 -Pain Behavior Grasping Site -Alleviating Factors/Interventions Medication 11/07/23 09:41 WC - Today's Visit Information Type of service Follow-up Visit (Physician/DEEP SUBMERGENCE [employer]LE [employer]WMEMBER ) Arrival Mode Wheelchair Transfer Assistance None Patient Identification Verified (Name & Yes ) Patient Requires Transmission-Based Precautions Safety Precautions Finger Stick Blood Sugar(mg/dl) (if indicated): Blood Sugar Vital Signs Temperature (97.8 F-99.1 F) 97.5 F L Temperature Source Temporal Pulse Rate (60-100) 67 Pulse Location Monitor Respiratory Rate (12-18) 18 Respiratory rate source Observation Oxygen Delivery Method Blood Pressure (90/60-120/80) 111/47 L Blood Pressure Mean (mm Hg) 68 Source Monitor Position Sitting Blood Pressure Location Left Arm History Since Last Visit- (Skip if this is Patient's initial visit) Have you changed medications since your No last visit? Any new allergies or adverse reactions No Had a fall/change in ADL's that may No increase risk of falls Signs or symptoms of abuse and/or No neglect since last visit Have you been in the hospital since your No last visit? Has dressing in place as prescribed Yes Has compression in place as prescribed Yes Has offloadiing in place as prescribed No Experienced any changes in pain level or No management Left Footwear Right Footwear Pain Scale: 0-10 Numeric Is Patient Pain Free? Yes RT Lat Ankle -Description -Intensity -Pain Behavior -Alleviating Factors/Interventions WC - Nurse 1 - General Ulcer Measurement Start: 10/17/23 09:30 Freq: Status: Active Protocol: Activity Type Activity Date Activity User E-sign Co-sign Detail Recorded Client Recorded Date Recorded By Document 10/17/23 09:32 MT Desktop 10/17/23 09:40 MT Document 10/24/23 09:47 KW Desktop 10/24/23 09:55 KW Document 10/31/23 09:37 DL Desktop 10/31/23 09:47 DL Document 11/07/23 09:41 RB Desktop 11/07/23 09:43 RB 10/17/23 10/24/23 10/31/23 09:32 09:47 09:37 Wound Center Nurse 1 #1 R Lat Ankle -Combined with other wound -Current Size (cm) - Length 1.5 1.1 0.8 -Current Size (cm) - Width 1.2 0.5 0.4 -Current Size (cm) - Depth 0.5 0.3 -Total Square Cm 1.80 0.55 0.32 -Tunneling -Undermining/Tunneling -Undermining/Tunneling Starts (O'clock 7 ) -Undermining/Tunneling Ends (O'clock) 4 -Maximum Distance (cm) 0.4 -Circular Undermining -Exudate Amt Medium Small Medium -Exudate Type Serosanguineous Serosanguineous Serosanguineous -Wound Margin Distinct, Thickened Thickened & Outline Rolled Under Attached -Granulation Amt Large (67-100%) Medium (34-66%) Small (1-33%) -Granulation Quality Red Red Red -Slough/Fibrin -Necrosis Amt Small (1-33%) Small (1-33%) Small (1-33%) -Necrotic Tissue Type Adherent Slough Adherent Slough Adherent Slough -Structure Exposed N/A -Texture (Lori-wound Skin Appearance) Assessed, Assessed, Scarring Localized Edema Localized Edema -Moisture (Lori-wound Skin Appearance) Assessed Assessed Maceration -Color (Lori-wound Skin Appearance) Assessed, Assessed Hemosiderin Hemosiderin Staining Staining -Temperature (Lori-wound Skin No Abnormality No Abnormality No Abnormality Appearance) (Pt Warm) (Pt Warm) (Pt Warm) -Tenderness on Palpation (Lori-wound No No Skin Appearance) -Ulcer Cleansing Rinsed/ Rinsed/ Soap and Water Irrigated with Irrigated with Saline Saline -Foul Odor after Cleansing No No -Anesthetic Used 5% Lidocaine 5% Lidocaine 5% Lidocaine Gel Gel Gel Lower Limb Edema Present Right Calf (cm) 36 Right Ankle (cm) 22.7 11/07/23 09:41 Wound Center Nurse 1 #1 R Lat Ankle -Combined with other wound No -Current Size (cm) - Length 0.9 -Current Size (cm) - Width 0.5 -Current Size (cm) - Depth 0.3 -Total Square Cm 0.45 -Tunneling No -Undermining/Tunneling No -Undermining/Tunneling Starts (O'clock ) -Undermining/Tunneling Ends (O'clock) -Maximum Distance (cm) -Circular Undermining No -Exudate Amt Large -Exudate Type Serosanguineous -Wound Margin Thickened & Rolled Under -Granulation Amt Medium (34-66%) -Granulation Quality Linton -Slough/Fibrin Yes -Necrosis Amt Large (67-100%) -Necrotic Tissue Type Adherent Slough -Structure Exposed N/A -Texture (Lori-wound Skin Appearance) Assessed -Moisture (Lori-wound Skin Appearance) Assessed -Color (Lori-wound Skin Appearance) Hemosiderin Staining -Temperature (Lori-wound Skin No Abnormality Appearance) (Pt Warm) -Tenderness on Palpation (Lori-wound No Skin Appearance) -Ulcer Cleansing Wound Cleanser -Foul Odor after Cleansing No -Anesthetic Used 5% Lidocaine Gel Lower Limb Edema Present Yes Right Calf (cm) 38.5 Right Ankle (cm) 25.8 WC - Nurse 2 - General Ulcer CM Notes Start: 10/17/23 09:30 Freq: Status: Active Protocol: Activity Type Activity Date Activity User E-sign Co-sign Detail Recorded Client Recorded Date Recorded By Document 10/17/23 10:13 [facility] Desktop 10/17/23 10:37 [facility] Document 10/24/23 10:01 [facility] Desktop 10/24/23 10:15 [facility] Document 10/31/23 09:59 [facility] Desktop 10/31/23 10:10 [facility] Document 11/07/23 10:10 [facility] Desktop 11/07/23 10:27 F 10/17/23 10/24/23 10/31/23 10:13 10:01 09:59 Wound Center Nurse 2 #1 R Lat Ankle -Time 10:13 10:01 09:59 -Correct Patient Yes Yes Yes -Correct Side, Site, Position Yes Yes Yes -Correct Procedure Yes Yes Yes -Procedure Performed Yes Yes Yes -Type of Procedure Debridement Debridement Debridement -Clinical Debridement Subcutaneous Subcutaneous Subcutaneous -Tissue Removed Subcutaneous Subcutaneous Subcutaneous -Post Debridement (cm) - Length 1.5 1 0.9 -Post Debridement (cm) - Width 1.4 0.5 0.5 -Post Debridement (cm) - Depth 0.5 0.5 0.3 -Total Square (Post) (cm) 2.10 0.5 0.45 -Area of Debridement (cm) - Length 1.5 1 0.9 -Area of Debridement (cm) - Width 1.4 0.5 0.5 -Total Square (Area) (cm) 2.10 0.5 0.45 -Tunneling No No No -Undermining/Tunneling No No No -Circular Undermining No No No -Wound/Ulcer Outcome Not Healed Not Healed Not Healed -Ulcer Cleansing Rinsed/ Rinsed/ Rinsed/ Irrigated with Irrigated with Irrigated with Saline Saline Saline -Foul Odor after Cleansing No No No -Bioengineered Tissue No No -Injectable Lidocaine (%) -Lidocaine (ml) -Injectable Lidocaine w/ Epi (%) 1 1 1 -Injectable Lidocaine w/ Epi (mls) 10 10 10 -Bleeding Controlled with Pressure Pressure Pressure -Treatment Response Procedure Procedure Procedure Tolerated Well Tolerated Well Tolerated Well -Assistive Device(s) Wheelchair -Debridement - Subq, 1st 20sq cm Yes Yes Yes Pain Scale: 0-10 Numeric Is Patient Pain Free? No No Yes RT Lat Ankle -Description Aching -Intensity 10 8 -Duration (hours) Acute Chronic -Pain Behavior Facial Grimacing -Pain Aggravating Factors Debridement Sitting, Debridement -Alleviating Factors/Interventions None Medication -Comments injected w/ given lidocaine injectable lido w/ epi prior to debridement 11/07/23 10:10 Wound Center Nurse 2 #1 R Lat Ankle -Time 10:10 -Correct Patient Yes -Correct Side, Site, Position Yes -Correct Procedure Yes -Procedure Performed Yes -Type of Procedure Debridement -Clinical Debridement Subcutaneous -Tissue Removed Subcutaneous -Post Debridement (cm) - Length 1.2 -Post Debridement (cm) - Width 0.8 -Post Debridement (cm) - Depth 0.5 -Total Square (Post) (cm) 0.96 -Area of Debridement (cm) - Length 1.2 -Area of Debridement (cm) - Width 0.8 -Total Square (Area) (cm) 0.96 -Tunneling No -Undermining/Tunneling No -Circular Undermining No -Wound/Ulcer Outcome Not Healed -Ulcer Cleansing Rinsed/ Irrigated with Saline -Foul Odor after Cleansing No -Bioengineered Tissue No -Injectable Lidocaine (%) 1 -Lidocaine (ml) 2 -Injectable Lidocaine w/ Epi (%) 1 -Injectable Lidocaine w/ Epi (mls) 8 -Bleeding Controlled with Pressure -Treatment Response Procedure Tolerated Well -Assistive Device(s) -Debridement - Subq, 1st 20sq cm Yes Pain Scale: 0-10 Numeric Is Patient Pain Free? No RT Lat Ankle -Description Sharp -Intensity 6 -Duration (hours) Chronic -Pain Behavior Facial Grimacing -Pain Aggravating Factors Sitting, Debridement -Alleviating Factors/Interventions Medication -Comments injected w/ lidocaine per dr salvatore REDMOND - Nurse 3 - General Ulcer D/C NN Start: 10/17/23 09:30 Freq: Status: Active Protocol: Activity Type Activity Date Activity User E-sign Co-sign Detail Recorded Client Recorded Date Recorded By Document 10/17/23 10:51 Desktop 10/17/23 10:52 GM Document 10/24/23 10:22 [facility] Desktop 10/24/23 10:23 BM Document 10/31/23 11:54 DL [id number] 10/31/23 11:56 DL Document 11/07/23 10:31 KW Desktop 11/07/23 10:31 KW 10/17/23 10/24/23 10/31/23 10:51 10:22 11:54 Wound Care Center Nurse 3 #1 R Lat Ankle -Ulcer Cleansing Not Cleansed Rinsed/ Rinsed/ Irrigated with Irrigated with Saline Saline -Foul Odor after Cleansing No No No -Primary Dressing Applied -Other Dressing dakins moist dakins gauze -Primary Dressing Covered/Secured with Dry Gauze,Dry Dry Gauze & Dry Gauze & Gauze & Roll Roll Gauze, Roll Gauze, Gauze,Secured Secured with Secured with with Tape Tape Tape -Other Covering abd ABD -Mepilex Border -Wound Comment(s) dakins soaked gauze then abd Right -Compression Wrap Daljit Wrap Daljit Wrap Daljit Wrap -Tubular Bandage -Size of Tubigrip Used -Size E ($) Treatment Response Procedure Procedure Tolerated Well Tolerated Well Pain Scale: 0-10 Numeric Is Patient Pain Free? Yes Yes Yes Teaching: Wound Center wound status -Person Taught Patient -Teaching Method Discussion -Response to teaching Verbalize understanding WC - Visit Discharge Discharge Condition Stable Stable Stable Ambulatory Status Wheelchair Wheelchair Wheelchair Transportation Private Auto ecf ECF Medication Reconcilliation completed & provided to patient/care provider Clinical Summary of Care Provided Yes Facility Type [facility] Facility Orders Sent Yes 11/07/23 10:31 Wound Care Center Nurse 3 #1 R Lat Ankle -Ulcer Cleansing -Foul Odor after Cleansing -Primary Dressing Applied Mepilex Border -Other Dressing DAKINS SOAKED GAUZE -Primary Dressing Covered/Secured with -Other Covering -Mepilex Border 1 -Wound Comment(s) Right -Compression Wrap -Tubular Bandage Double Layer -Size of Tubigrip Used Size E -Size E ($) 2 Treatment Response Pain Scale: 0-10 Numeric Is Patient Pain Free? Yes Teaching: Wound Center wound status -Person Taught -Teaching Method -Response to teaching WC - Visit Discharge Discharge Condition Stable Ambulatory Status Wheelchair Transportation Medication Reconcilliation completed & No provided to patient/care provider Clinical Summary of Care Provided Yes Facility Type Orders Sent Assessment/Plan Assessment/Plan (1) 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: CODE(S): L97.312 - Non-pressure chronic ulcer of right ankle with fat layer exposed (2) Diabetes mellitus with diabetic polyneuropathy: CODE(S): E11.42 - Type 2 diabetes mellitus with diabetic polyneuropathy (3) Tobacco abuse: CODE(S): Z72.0 - Tobacco use (4) Hyperlipidemia: CODE(S): E78.5 - Hyperlipidemia, unspecified (5) Ankle osteomyelitis, right: CODE(S): M86.9 - Osteomyelitis, unspecified PLAN: Plan Patient seen and evaluated Patient did have radiographs performed 09/26/2023 of the right ankle and foot demonstrating generalized osteopenia, soft tissue swelling, and mild arthritis of the first MTPJ and TNJ. Recent laboratory data demonstrates WBC 9.8, ESR 15, glucose 210. No recent A1c was performed with last A1c of record 03/09/2019 which was 8% at this time. Recommended updating A1c. Wound cultures were obtained 09/26/2023 demonstrating MRSA positive. These cultures do reflect previous past cultures of MRSA positive from August and July 2023. Referral to Dr. Robbins was placed. Patient finished previously prescribed doxycycline 100 mg twice daily for [address] Laughlin. Ulceration was debrided as noted in the clinical panel above. Prior to debridement she was locally anesthetized proximal to the ulcerative site consisting of 10 cc 1% lidocaine with epinephrine with block to the sural nerve and superficial peroneal nerve proximal to ulceration. This is noted to improve patient's tolerance of debridement today. Ulceration to the right lateral ankle measures post-debridement measures 1.2 cm x 0.8 cm x 0.5 cm. No localized signs of infection. Change was made in dressings for improvement of source control and will continue this. Dakin's wet-to-dry dressing was applied to the lateral ankle. SAP dressing over this with Dry sterile dressing. She is instructed to change dressing daily. She is continuing oral antibiotic as instructed and has follow-up with infectious disease scheduled 11/20/23, as she missed appointment 10/30/23 due to confusion from her transportation service. There is noted visual improvement of the wound bed with more healthy granular tissue noted following application of the Dakin's and with continued antibiotics. There is noted improvement in appearance of tissue but slight increase in size versus her previous visit due to debridement of some periwound maceration tissue. With wound bed improving consideration will be given to collagen based product for application at next visit. Due to significant amount of pain to palpation about the right lateral ankle and patient underwent MRI 10/11/[address] Laughlin. MRI on 10/11/2023 demonstrating lateral soft tissue swelling with skin thickening. There is focal defect consistent with wound. There is marrow edema of the lateral malleolus and distal fibula, series 7 image 8. Impression: Osteomyelitis of the lateral malleolus of the distal fibula with soft tissue wound and swelling. I have reviewed this MRI series and do note the increased marrow edema of the lateral malleolus and series 7 image 8 but also an image 9. This does appear to be at the outer portion of the cortex of the bone as the remaining images do not demonstrate increased signal. I did discuss these images in detail with the patient today in addition to findings with concern for osteomyelitis. I did discuss possible surgical options with the patient in detail 10/17/2023. All options were discussed with the patient in detail including risks and benefits of each procedure. Discussed risk of BKA with patient today. Patient is understanding of this but would like to save the right lower extremity.. Also discussed possible treatment with IV antibiotics and aggressive surgical debridement of the soft tissue. Patient at this time would like to take time to consider options as she is on the oral antibiotic in addition to further discussion with infectious disease. Previous culture results of MRSA positive were reviewed. Due to the patient unable to get into infectious disease I did initiate outpatient oral antibiotic therapy on 10/17/2023. Rx doxycycline 100 mg twice daily x 14 days and Rx levofloxacin 750 mg twice daily x 14 days. Antibiotic stop date for first round 10/31/2023. This antibiotic regimen was extended due to next infectious disease appointment on 11/20/2023 with new stop date of antibiotics 11/15/2023. Recommended probiotic use with antibiotic and to take with food. She continues to take antibiotics as instructed and there is noted improvement in her wound with continued decrease in size and more healthy appearing tissue. Recommended adequate protein intake to aid in wound healing. Solomon supplementation is also recommended. Discussed with patient continue proper diabetic diet to aid in wound healing and provide good glycemic control. Discussed glycemic control and lowering of her blood sugar/A1c is important to aid in wound healing. She was again reminded to continue to wear proper fitting shoe gear and to ensure shoe gear is worn at all times for protection of the foot as she is diabetic with significant diminished sensation secondary to peripheral polyneuropathy. Discussed with patient the need for smoking cessation. Discussed impacts of wound healing from her smoking. Discussed with smoking blood flow is diminished to vital organs and extremities which is essential for her wound healing, in addition to affecting oxygen content/saturation of the bloodstream which is also essential for wound healing. Discussed smoking cessation aids today and these were offered. Recommended continued discussion with her primary care physician to aid her in smoking cessation. 5 minutes total was spent on discussion 10/03/23. I discussed signs and symptoms of infection today. Discussed if she notices increasing redness of the skin about the ulcerative site moving up the leg, purulent drainage from the wound site, increasing foul odor from the wound, or if she develops fever greater than 101 degree accompanied by nausea, vomiting, chills that these are signs of a progressing infection and she should report to the ED for IV antibiotics and further evaluation. Patient voices understanding of this. The following work up and care recommendations were made: Dressing: Dakin's wet-to-dry dressing, SAP dressing over this. Change daily Wash: Soap and water Tissue growth optimization: Dakin's Offload: Padded protective dressing of the lateral ankle. Recommended waffle offloading boot while in bed. Vascular: DP and PT pulses weakly palpable bilateral. Monophasic Doppler to left pedal pulses. Edema: Mild edema noted to the lower extremities. Recommended continued Tubigrip compression with elevation of lower extremities. Infection: Osteomyelitis confirmed of the distal lateral malleolus by MRI 10/11/2023. She does demonstrate positive MRSA cultures and is currently on doxycycline and levofloxacin for 14 days, this was extended (stop date now for 11/15/23). Referral to infectious disease, next appointment 11/20/23. Pain: May take [id number] Tylenol for discomfort Host factors: DM type II with peripheral polyneuropathy, MRSA positive cultures, edema, chronic tobacco abuse. I answered all the patient's questions. To return to the wound healing center in 1 week or call sooner if the patient has any questions or concerns.
== END 2023-11-12 23:59 | disposition home or self-care (01) ==
LOC: WC 09:45
PROVIDERS: PCP Internal Medicine; Referring Provider Internal Medicine; Visit Provider Student in an Organized Health Care Education/Training Program
DX: L97.312 Non-pressure chronic ulcer of right ankle with fat layer exposed (principal); M86.9 Osteomyelitis, unspecified; E11.42 Type 2 diabetes mellitus with diabetic polyneuropathy; E11.69 Type 2 diabetes mellitus with other specified complication; E78.5 Hyperlipidemia, unspecified; Z86.14 Personal history of Methicillin resistant Staphylococcus aureus infection; Z72.0 Tobacco use
CPT/HCPCS: 11042

== ENCOUNTER 2023-11-24 16:24 | Emergency (ER) | payer MEDICARE, MEDICAID, SELFPAY ==
[2023-11-24 16:26] VITALS: BP 136/74; PULSE 87; RESP 14; TEMP 37.1; O2SAT 96; BMI 38.7
--- NOTE | 2023-11-24 16:58 | CT_ITS ---
STUDY: CT Abdomen And Pelvis W/O Contrast Injection 11/24/2023 7:24 PM REASON FOR EXAM: Female, 63 years old. R flank pain Individualized dose optimization techniques were used for this CT. COMPARISON: None. TECHNIQUE: CT Abdomen And Pelvis W/O Contrast Injection FINDINGS: There are atherosclerotic calcifications of visualized coronary arteries. The visualized portions of the heart are within normal limits. There is decreased attenuation of the liver consistent with steatosis. There are surgical clips in the gallbladder fossa consistent with a prior cholecystectomy. Normal spleen. Normal pancreas.There is hepatomegaly with diffuse hepatic enlargement. Normal bilateral adrenal glands. Non obstructive 2 mm right renal parenchymal stones. Left posterior renal calcified structure measures 4 mm. This may be a calcified cyst. 17 mm hyperdense lesion in the mid right kidney. This is 43 Hounsfield units. Non obstructive 2 mm left renal parenchymal stones. Normal visualized stomach. Normal small intestine. Stool throughout the colon. There is non-visualization of the appendix. There are calcifications of the abdominal aorta. This is consistent for atherosclerotic disease. There is NO abdominal aortic aneurysm. Vascular workup can be obtained based on clinical correlation. Normal inferior vena cava. Subcentimeter mesenteric lymph nodes. Normal urinary bladder. There is absence of the uterus consistent with a prior hysterectomy. Total left hip arthroplasty. Right lower quadrant possible insulin pump. Normal abdominal wall. Normal osseous structures. CT/Abdomen/Pelvis without Cont IMPRESSION: (NOT LISTED IN ORDER OF SIGNIFICANCE) Fatty liver. Enlarged liver. 17 mm right renal lesion. ACR White Paper guidelines (Hermerary, et al. JACR 2018; 15(2):264-273) recommend MRI or CT without and with intravenous contrast. Other findings as above. Electronically Signed: Roberto Zhou MD at 19:29 EDT ,
--- NOTE | 2023-11-24 17:02 | EDS_ITS ---
HPI History of Present Illness Chief Complaint: Edema Informant: patient Narrative Narrative: 63-year-old patient in a senior living presenting with multiple complaints on her own behalf. She states she has chronic edema in both of her legs, it seems like it has been getting worse she has had approximately 16 pound weight gain in the past 4 or 5 days and today she feels like she has some swelling around her right eye although she has no pain or vision changes. Her abdomen seems all swollen to her as well. Today she also suddenly started getting pain in her right flank mostly in the low back. This has been associated with 2 episodes of vomiting. She has had no urinary symptoms except that she is on a diuretic and noticing she is urinating less after taking it. She also has had some mild dyspnea and chest tightness no orthopnea no new cough or fevers. [facility] Medical History Anxiety Cerebral vascular disease 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 Diabetes GERD (gastroesophageal reflux disease) Hyperlipidemia Hypertension Insomnia Insulin dependent diabetes mellitus Mild asthma Neuralgia and neuritis Schizoaffective disorder Schizophrenia Spondylosis Tobacco abuse Home Medications amlodipine 5 mg tablet 5 mg PO DAILY blood pressure 03/08/19 [History Last Taken 03/08/19] ondansetron HCl 4 mg tablet 4 mg PO Q6H PRN PRN Nausea 03/08/19 [History Last Taken Unknown] prazosin 1 mg capsule 1 mg PO QHS nightmares 03/08/19 [History Last Taken 02/13 10/31 20:00] albuterol sulfate 2.5 mg/3 mL (0.083 %) solution for nebulization 2.5 mg inhalation Q4H PRN SOB 07/29/21 [History Last Taken Unknown] apixaban 5 mg tablet (Eliquis) 5 mg PO BID 07/29/21 [History Last Taken Unknown] cyclosporine 0.05 % eye drops in a dropperette (Restasis) 1 drp EACH EYE Q12H 07/29/21 [History Last Taken Unknown] insulin aspart U-100 100 unit/mL (3 mL) subcutaneous pen unit subcut LUNCH 07/29/21 [History Last Taken Unknown] lurasidone 80 mg tablet (Latuda) 80 mg PO DAILY 07/29/21 [History Last Taken Unknown] naloxegol 25 mg tablet (Movantik) 25 mg PO DAILY 07/29/21 [History Last Taken Unknown] pantoprazole 40 mg tablet,delayed release 40 mg PO DAILY 07/29/21 [History Last Taken Unknown] acetaminophen 325 mg tablet 325 mg PO ONCE PRN 12/18/22 [History Last Taken Unknown] aluminum-mag hydroxide-simethicone 400 mg-400 mg-40 mg/5 mL oral susp (Maalox Maximum Strength) 5 ml PO Q3H 12/18/22 [History Last Taken Unknown] atenolol 25 mg tablet 25 mg PO DAILY 12/18/22 [History Last Taken Unknown] atorvastatin 80 mg tablet 40 mg PO QHS cholesterol 12/18/22 [History Last Taken Unknown] baclofen 5 mg tablet 5 mg PO DAILY 12/18/22 [History Last Taken Unknown] benzonatate 100 mg capsule 100 mg PO Q8H PRN 12/18/22 [History Last Taken Unknown] bisacodyl 10 mg rectal suppository (Dulcolax (bisacodyl)) 10 mg HI Q8H PRN 12/18/22 [History Last Taken Unknown] bisacodyl 5 mg tablet,delayed release (Dulcolax (bisacodyl)) 5 mg PO Q8H 12/18/22 [History Last Taken Unknown] carboxymethylcellulose sodium 0.5 % eye drops (Refresh Tears) 1 drp ophthalmic (eye) QHS 12/18/22 [History Last Taken Unknown] cholecalciferol (vitamin D3) 125 mcg (5,000 unit) capsule 125 mcg PO DAILY 12/18/22 [History Last Taken Unknown] cholecalciferol (vitamin D3) 50 mcg (2,000 unit) capsule 50 mcg PO DAILY 12/18/22 [History Last Taken Unknown] diclofenac sodium 1 % topical gel 2 g topical ONCE 12/18/22 [History Last Taken Unknown] dulaglutide 3 mg/0.5 mL subcutaneous pen injector (Trulicity) 3 mg subcut QWEEK 12/18/22 [History Last Taken Unknown] dyclonine 2 mg lozenges (Sucrets Sore Throat) 2 mg mucous membrane Q3H PRN 12/18/22 [History Last Taken Unknown] epinephrine 0.3 mg/0.3 mL injection, auto-injector (EpiPen) 0.3 mg IM Q5-15M PRN 12/18/22 [History Last Taken Unknown] flash glucose sensor (FreeStyle Cynthia 2 Sensor kit) 12/18/22 [History Last Taken Unknown] fluticasone fur. 200 mcg-umeclid 62.5 mcg-vilant 25 mcg inhalat.powder (Trelegy Ellipta) 1 inh inhalation DAILY 12/18/22 [History Last Taken Unknown] fluticasone propionate 50 mcg/actuation nasal spray,suspension (Flonase Allergy Relief) 2 spray intranasal DAILY 12/18/22 [History Last Taken Unknown] guaifenesin 100 mg/5 mL oral liquid 200 mg PO Q4H PRN 12/18/22 [History Last Taken Unknown] hydroxyzine pamoate 25 mg capsule (Vistaril) 25 mg PO QHS 12/18/22 [History Last Taken Unknown] insulin glargine U-300 conc 300 unit/mL (1.5 mL) subcutaneous pen (Toujeo SoloStar U-300 Insulin) 30 unit subcut DAILY 12/18/22 [History Last Taken Unknown] ipratropium 0.5 mg-albuterol 3 mg (2.5 mg base)/3 mL nebulization soln 3 ml inhalation 6XD 12/18/22 [History Last Taken Unknown] ipratropium 20 mcg-albuterol 100 mcg/actuation mist for inhalation (Combivent Respimat) 1 puff inhalation Q6H 12/18/22 [History Last Taken Unknown] ipratropium bromide 21 mcg (0.03 %) nasal spray 2 spray intranasal BID 12/18/22 [History Last Taken Unknown] lisinopril 2.5 mg tablet 2.5 mg PO DAILY 12/18/22 [History Last Taken Unknown] loratadine 10 mg tablet (Claritin) 10 mg PO DAILY 12/18/22 [History Last Taken Unknown] melatonin 3 mg capsule 3 mg PO HS PRN 12/18/22 [History Last Taken Unknown] metformin 500 mg tablet 500 mg PO QHS 12/18/22 [History Last Taken Unknown] montelukast 10 mg tablet 10 mg PO DAILY 12/18/22 [History Last Taken Unknown] naloxone 0.4 mg/mL injection solution 0.2 mg subcut ONCE 12/18/22 [History Last Taken Unknown] olanzapine 10 mg tablet (Zyprexa) 10 mg PO QPM 12/18/22 [History Last Taken Unknown] polyethylene glycol 3350 17 gram/dose oral powder (Miralax) 4 g PO DAILY 12/18/22 [History Last Taken Unknown] tizanidine 2 mg tablet 2 mg PO Q12H 12/18/22 [History Last Taken Unknown] duloxetine 60 mg capsule,delayed release (Cymbalta) 60 mg PO BID 01/16/23 [History Last Taken Unknown] potassium chloride 20 mEq tablet,extended release 20 meq PO DAILY 01/16/23 [History Last Taken Unknown] pregabalin 100 mg capsule 100 mg PO DAILY 01/16/23 [History Last Taken Unknown] furosemide 20 mg tablet 60 mg (3 x 20 mg) PO QAM #90 tabs 11/24/23 [Rx Last Taken Unknown] Allergy/AdvReac Type Severity Reaction Status Date / Time Iodinated Contrast Media Allergy Hives Verified 11/24/23 16:29 [Iodinated Contrast Media - IV Dye] amoxicillin trihydrate AdvReac Itching Verified 11/24/23 16:29 [From Augmentin] hydrocodone [From Vicodin] AdvReac Unknown Verified 11/24/23 16:29 potassium clavulanate AdvReac Itching Verified 11/24/23 16:29 [From Augmentin] prednisone AdvReac Unknown Verified 11/24/23 16:29 shellfish derived AdvReac Itching Verified 11/24/23 16:29 Surgical History S/P right rotator cuff repair Social History Smoking Status: Current every day smoker tobacco type: cigarettes ROS ROS ED Constitutional Constitutional ED: Denies chills or fever(s) Eyes Eyes: Denies change in vision or diplopia ENT ENT ED: Denies rhinorrhea or sore throat Cardiovascular Cardiovascular: Reports as per HPI, chest pain and pedal edema; Denies orthopnea or palpitations Respiratory/Chest Respiratory/Chest: Reports dyspnea; Denies orthopnea Gastrointestinal Gastrointestinal: Denies abdominal pain, diarrhea, nausea or vomiting Genitourinary Genitourinary ED: Reports as per HPI and flank pain; Denies dysuria or hematuria Musculoskeletal Musculoskeletal: Reports back pain; Denies neck pain Integumentary Denies abscess or rash Neurologic Neurologic: Denies headache(s), paresthesias or weakness Psychiatric Psychiatric: Denies suicidal ideation or suicidal thoughts EXAM Physical Exam Const Vital Signs: 11/24/23 16:26 11/24/23 17:11 11/24/23 16:57 Temperature 98.8 F Temperature Source Oral Pulse Rate 87 75 Respiratory Rate 14 16 Respiratory Pattern Normal Blood Pressure 136/74 H Blood Pressure Mean 94 Pulse Ox 96 Oxygen Delivery Method Room Air Room Air 11/24/23 18:43 11/24/23 19:00 Temperature Temperature Source Pulse Rate 85 Respiratory Rate 17 Respiratory Pattern Normal Blood Pressure 135/65 H Blood Pressure Mean 88 Pulse Ox 96 Oxygen Delivery Method Room Air Positive well nourished, well developed and obese General Appearance ED: well developed and NAD Nutritional Appearance: obese HEENT Reports moist mucous membranes HEENT Narrative: Mild right periorbital edema without tenderness, erythema, palpebral conjunctivitis, or eye discharge normocephalic and atraumatic Eyes PERRL and EOMs intact bilaterally Neck full ROM, supple and no JVD Resp normal respiratory effort Resp Narrative: Mild diffuse expiratory wheezes equal bilaterally Cardio regular rate, regular rhythm and no murmurs GI non-tender and non-distended GI Narrative: Palpable firm spine pump in the right anterior flank without any overlying erythema or tenderness. Abdomen otherwise benign. Auscultation: normoactive bowel sounds Palpation: soft Back/Spine Back/Spine Narrative: Normal inspection General Back: CVA tenderness right and other FROM Extremity normal to inspection General Extremety ED: Yes edema; Negative for pulses abnormal or tenderness General Extremity: edema bilateral lower extremity Details: severe (Symmetric); Negative for pulses abnormal Neuro oriented x3, CN's II-XII intact bilaterally and no sensory deficits noted Sensorium / Orientation: awake and alert Motor Exam: strength 5/5 throughout Psych Mood & Affect: anxious Skin no rashes or lesions noted and no wounds MDM MDM MDM Narrative Medical decision making narrative: Differential wide, patient with several complaints. Where the guards to the edema in her legs and some dyspnea with chest tightness, CHF in the differential diagnosis, however clinically she does not sound to be in CHF, chest x-ray 1 view on my interpretation negative for pulmonary edema or infiltrate, less consistent with CHF given that. The labs beta natruretic peptide machine is down and not able to get a measurement of that but her renal function is normal which is reassuring, and I offered to give her diuretics but it is late at night she wants to wait into the morning if she is going home which I think she can. With regards to the flank pain, we obtained a urinalysis that is negative for infection or hematuria she is anticoagulated. I obtained a CT of the abdomen/pelvis without contrast not knowing her renal function at the time, I reviewed the images and the report which I agree with, it is negative for obstructive uropathy. It does show some nonobstructing nephroliths, as well as an exophytic mass that is hyperdense on the right kidney 17 mm, further nonemergent workup indicated for this. At this time I think doubling her furosemide from 20 mg every morning to 40 would be reasonable, and having her follow-up with her physician for further workup given this exophytic mass. She is wanting something for anxiety at discharge. I am ordering her some Vistaril, she does not seem overly anxious objectively and I do not think there is a reaso n to give her benzodiazepines at this time. Her chest tightness is resolved and she is breathing better after breathing treatment. Her troponin is negative ruling out acute coronary syndrome for the symptoms out of been going on for all day and then some. Lab Data Attestation: I reviewed the patient's lab results. Labs: Laboratory Results - last 24 hr 11/24/23 11/24/23 15:25 18:00 WBC 11.6 H RBC 4.90 Hgb 14.4 Hct 43.8 MCV 89.4 MCH 29.4 MCHC 32.9 RDW Std Deviation 50.6 H RDW Coeff of Gael 15.5 H Plt Count 223 MPV 9.9 Immature Gran % (Auto) 1.000 H Neut % (Auto) 69.2 Lymph % (Auto) 20.5 [place] % (Auto) 8.4 Eos % (Auto) 0.6 Baso % (Auto) 0.3 Absolute Neuts (auto) 8.0 H Absolute Lymphs (auto) 2.37 Nucleated RBC % 0 Sodium 142 Potassium 3.9 Chloride 104 Carbon Dioxide 33.0 H Anion Gap 5 BUN 15 Creatinine 0.84 Estim Creat Clear Calc 77.96 Est GFR (MDRD) Af Amer 89 Est GFR (MDRD) Non-Af 73 BUN/Creatinine Ratio 17.9 Glucose 141 H Calcium 9.0 Troponin I High Sens 5 Urine Color Yellow Urine Clarity Clear Urine pH 7.0 Ur Specific [place] 1.010 Urine Protein Negative Urine Glucose (UA) Normal Urine Ketones Negative Urine Occult Blood Negative Urine Nitrite Negative Urine Bilirubin Negative Urine Urobilinogen Normal Ur Leukocyte Esterase Negative Urine RBC 0 SEEN Urine WBC 0 SEEN Ur Squamous Epith Cells 0-5 SEEN Urine Bacteria 0 SEEN Urine Mucus 0 SEEN Radiography Diagnostic Testing: Clinical Impression(s) from Imaging Studies Abdomen/Pelvis CT 11/24/23 16:58 IMPRESSION: (NOT LISTED IN ORDER OF SIGNIFICANCE) Fatty liver. Enlarged liver. 17 mm right renal lesion. ACR White Paper guidelines (Herts, et al. JACR 2018; 15(2):264-273) recommend MRI or CT without and with intravenous contrast. Other findings as above. Electronically Signed: Roberto Zhou MD at 19:29 EDT , Chest X-Ray 11/24/23 18:55 IMPRESSION: No radiographic evidence of acute cardiopulmonary disease. Electronically Signed: Roberto Zhou MD at 19:30 EDT , Rhythm Strip Rhythm Strip: Sinus Rhythm Rate: 93 Ectopy: None EKG Initial EKG: Attestation: I personally reviewed and interpreted this EKG as follows: Interpretation: Sinus Rhythm and No Acute Injury Pattern Prior EKG tracings: available for review Prior: Unchanged Discharge Plan Triage Chief Complaint: Edema Other Complaint: Flank Pain ED Provider: Dino Pena Dx/Rx/DC Orders Clinical Impression: Bilateral edema of lower extremity, COPD (chronic obstructive pulmonary disease), Anxiety, Acute right flank pain, Mass of right kidney, Chest tightness Instructions: ED Peripheral Edema, Bilateral, ED Tumor, Uncertain Cause Prescriptions: Changed furosemide 20 mg tablet 60 mg PO QAM Qty: 90 0RF No Action acetaminophen 325 mg tablet 325 mg PO ONCE PRN atenolol 25 mg tablet 25 mg PO DAILY baclofen 5 mg tablet 5 mg PO DAILY benzonatate 100 mg capsule 100 mg PO Q8H PRN loratadine [Claritin] 10 mg tablet 10 mg PO DAILY Combivent Respimat 20-100 mcg/actuation mist 1 puff inhalation Q6H diclofenac sodium 1 % gel 2 g topical ONCE Rx Instructions: apply to single elbow, wrist or hand; for hand includes palm/fingers/back of hand bisacodyl [Dulcolax (bisacodyl)] 5 mg tablet,delayed release (DR/EC) 5 mg PO Q8H bisacodyl [Dulcolax (bisacodyl)] 10 mg suppository 10 mg HI Q8H PRN epinephrine [EpiPen] 0.3 mg/0.3 mL auto-injector 0.3 mg IM Q5-15M PRN Rx Instructions: do not exceed 3 doses per episode fluticasone propionate [Flonase Allergy Relief] 50 mcg/actuation spray,suspension 2 spray intranasal DAILY Rx Instructions: administer into each nostril (DME) Free[employer] 3D Cynthia 2 Sensor Kit See Rx Instructions .Route Rx Instructions: As directed guaifenesin 100 mg/5 mL liquid 200 mg PO Q4H PRN ipratropium bromide 21 mcg (0.03 %) spray,non-aerosol 2 spray intranasal BID Rx Instructions: administer into each nostril ipratropium-albuterol 0.5 mg-3 mg(2.5 mg base)/3 mL solution for nebulization 3 ml inhalation 6XD lisinopril 2.5 mg tablet 2.5 mg PO DAILY alum-mag hydroxide-simeth [Maalox Maximum Strength] 400-400-40 mg/5 mL suspension 5 ml PO Q3H melatonin 3 mg capsule 3 mg PO HS PRN metformin 500 mg tablet 500 mg PO QHS polyethylene glycol 3350 [Miralax] 17 gram/dose powder 4 g PO DAILY montelukast 10 mg tablet 10 mg PO DAILY naloxone 0.4 mg/mL solution 0.2 mg subcut ONCE carboxymethylcellulose sodium [Refresh Tears] 0.5 % drops 1 drp ophthalmic (eye) QHS Sucrets Sore Throat 2 mg lozenge 2 mg mucous membrane Q3H PRN tizanidine 2 mg tablet 2 mg PO Q12H Nasir Landeros U-300 Insulin 300 unit/mL (1.5 mL) insulin pen 30 unit subcut DAILY Trelegy Ellipta 200-62.5-25 mcg blister with device 1 inh inhalation DAILY Trulicity 3 mg/0.5 mL pen injector 3 mg subcut QWEEK hydroxyzine pamoate [Vistaril] 25 mg capsule 25 mg PO QHS cholecalciferol (vitamin D3) 50 mcg (2,000 unit) capsule 50 mcg PO DAILY cholecalciferol (vitamin D3) 125 mcg (5,000 unit) capsule 125 mcg PO DAILY olanzapine [Zyprexa] 10 mg tablet 10 mg PO QPM duloxetine [Cymbalta] 60 mg capsule,delayed release(DR/EC) 60 mg PO BID potassium chloride 20 mEq tablet extended release 20 meq PO DAILY pregabalin 100 mg capsule 100 mg PO DAILY atorvastatin 80 mg tablet 40 mg PO QHS prazosin 1 MG capsule 1 mg PO QHS amlodipine 5 MG tablet 5 mg PO DAILY ondansetron HCl 4 MG tablet 4 mg PO Q6H PRN PRN (Reason: Nausea) albuterol sulfate 2.5 mg /3 mL (0.083 %) Solution For Nebulization 2.5 mg INHALATION Q4H PRN (Reason: SOB) pantoprazole 40 mg Tablet,Delayed Release (Dr/Ec) 40 mg PO DAILY insulin aspart U-100 100 unit/mL (3 mL) Insulin Pen SUBCUT LUNCH Rx Instructions: 8 UNBITS IN AM 6 UNITS AT LUNCH 8 UNITS IN THE EVENING PLUS SS cyclosporine [Restasis] 0.05 % Dropperette 1 drp EACH EYE Q12H Latuda 80 mg Tablet 80 mg PO DAILY Eliquis 5 mg Tablet 5 mg PO BID Movantik 25 mg Tablet 25 mg PO DAILY Primary Care Provider: Bianca Irwin Referrals: Bianca Irwin MD [Primary Care Provider] - Activity Restrictions/Additional Instructions: 17 mm exophytic mass right kidney seen. Further workup advised as an outpatient. Increase furosemide to 60 mg once a day, or as advised by Dr. Irwin if different dosing desired. Disposition Disposition: [facility] Facility
[2023-11-24] MEDS: Ipratropium/Albuterol Sulfate 3 ML AMPUL.NEB INHALATION (17:09)
[2023-11-24 17:11] VITALS: PULSE 75; RESP 16
[2023-11-24 17:35] LABS: Absolute Lymphocyte Count 2.37 X10^3/uL (0.83-4.51); Basophil# 0.04 X10^3/uL; Basophil% 0.3 % (0-1); Eosinophil# 0.07 X10^3/uL; Eosinophils% 0.6 % (0-5); Hematocrit 43.8 % (37-47); Hemoglobin 14.4 g/dL (12.0-15.0); Lymphocyte # 2.37 X10^3/ul (0.83-4.51); Lymphocyte % 20.5 % (19-41); Mean Corp Hgb Conc 32.9 g/dL (32-36); Mean Corpuscular Hgb 29.4 pg (27.0-32.0); Mean Corpuscular Volume 89.4 fL (81-99); Mean Platelet Vol. 9.9 fl (6.2-12.0); Monocyte# 0.97 X10^3/uL; Monocyte% 8.4 % (0-10); NRBC Flagged by Analyzer 0 % (0-5); Neutrophil # 7.99 X10^3/uL (2.7-7.7); Neutrophil % 69.2 % (47-70); Platelet Count 223 K/mm3 (150-450); RBC Distribution Width CV 15.5 % (11.6-14.6); RBC Distribution Width SD 50.6 fl (35.1-43.9); White Blood Count 11.6 K/mm3 (4.4-11.0)
[2023-11-24 17:56] LABS: Anion Gap 5 (5-15); BUN 15 mg/dL (7-18); BUN/Creat Ratio 17.9 RATIO (10-20); Chloride 104 mmol/L (98-107); Creatinine, Serum 0.84 mg/dL (0.55-1.02); EST Glomerular Filtration Rate 73 mL/min (>60); Est Glom Filt Rate - Afr Amer 89 mL/min (>60); Estimated Creatinine Clearance 77.96 ml/min; Glucose 141 mg/dL (74-106); Potassium 3.9 mmol/L (3.5-5.1); Sodium Level 142 mmol/L (136-145); Troponin-I HS 5 pg/mL (3.0-54.0)
[2023-11-24 18:06] LABS: Bacteria 0 SEEN /hpf (None Seen); Mucous, Urine 0 SEEN /hpf (<or=2+); Red Blood Cells-Urine 0 SEEN /hpf (0-5); White Blood Cells 0 SEEN /hpf (0-5)
[2023-11-24 18:10] LABS: Color, Urine Yellow (Yellow); Glucose, Dipstick Normal (Normal); Ketone-Dipstick Negative (Negative); Leukocyte Esterase-Dipstick Negative /ul (Negative); Nitrite-Dipstick Negative (Negative); Occult Blood-Urine Negative /ul (Negative); Protein-Dipstick Negative (Negative); Urine Bilirubin Dipstick Negative (Negative); Urine Clarity Clear (Clear); Urine Urobilinogen Normal (Normal)
[2023-11-24 18:38] LABS: Squamous Epithelial Cells - UA 0-5 SEEN /hpf (5-10)
--- NOTE | 2023-11-24 18:55 | RAD_ITS ---
EXAM: XR CHEST, 2 VIEWS CLINICAL INDICATION: dyspnea, chest tightness TECHNIQUE: Frontal and lateral views of the chest. COMPARISON: No relevant prior studies available. FINDINGS: LUNGS AND PLEURAL SPACES: Unremarkable. No consolidation or edema. No pneumothorax. No effusion. HEART: Unremarkable. Cardiac silhouette not enlarged. MEDIASTINUM: Central airways and mediastinal contour are unremarkable. BONES/JOINTS: Unremarkable. No acute fracture. SOFT TISSUES: Unremarkable. RAD/Chest PA and Lateral IMPRESSION: No radiographic evidence of acute cardiopulmonary disease. Electronically Signed: Roberto Zhou MD at 19:30 EDT ,
[2023-11-24 19:00] VITALS: BP 135/65; PULSE 85; RESP 17; O2SAT 96
[2023-11-24] MEDS: hydrOXYzine PAM 25 MG Capsule 50 MG PO (20:37)
[2023-11-24 21:00] VITALS: BP 161/73; PULSE 85; RESP 17; O2SAT 95
[2023-11-24 21:43] VITALS: BP 161/73; PULSE 81; RESP 16; TEMP 36.2; O2SAT 95
[2023-11-25 19:08] LABS: BNP,B-Type NATRIURETIC PEPTIDE 11.4 pg/mL (0-100)
== END 2023-11-24 21:49 | disposition skilled nursing facility (03) ==
PROVIDERS: Emergency Provider Emergency Medicine; PCP Internal Medicine; Visit Provider Emergency Medicine
DX: R60.0 Localized edema (principal); F20.9 Schizophrenia, unspecified; J44.9 Chronic obstructive pulmonary disease, unspecified; Z79.4 Long term (current) use of insulin; E11.9 Type 2 diabetes mellitus without complications; F41.9 Anxiety disorder, unspecified; F17.210 Nicotine dependence, cigarettes, uncomplicated; R11.10 Vomiting, unspecified; R07.89 Other chest pain; N28.89 Other specified disorders of kidney and ureter; R10.9 Unspecified abdominal pain; E78.5 Hyperlipidemia, unspecified; I10 Essential (primary) hypertension; Z79.899 Other long term (current) drug therapy; K21.9 Gastro-esophageal reflux disease without esophagitis; Z79.85 Long-term (current) use of injectable non-insulin antidiabetic drugs; Z79.84 Long term (current) use of oral hypoglycemic drugs; J45.909 Unspecified asthma, uncomplicated; Z79.51 Long term (current) use of inhaled steroids
CPT/HCPCS: 71046; 74176; 80048; 81001; 83880; 84484; 85025; 93005; 94640; 99283

== ENCOUNTER → 2023-11-26 | Outpatient (CLI) | payer MEDICARE, MEDICAID, SELFPAY ==
--- NOTE | 2023-11-26 12:35 | RAD_ITS ---
STUDY: X-RAY - CERVICAL SPINE REASON FOR EXAM: Female, 63 years old patient with spondylosis without myelopathy or radiculopathy, cervical region. TECHNIQUE: 4 view(s) of the cervical spine were obtained. COMPARISON: None FINDINGS: Normal anterior atlantoaxial articulation. Normal odontoid process. Normal cervical lordosis. Normal vertebral bodies and endplates. Normal disc space heights. The posterior elements appear to have normal alignment. Spinous processes appear intact. The soft tissue structures are unremarkable. There is no demonstrated fracture of the cervical spine. RAD/Cerv Spine 2 or 3 Views IMPRESSION: No radiographic evidence for acute fracture or dislocation. Electronically Signed: Lizbeth Rock MD at 0:47 EDT ,
== END | disposition home or self-care (01) ==
LOC: RAD 12:30
PROVIDERS: PCP Internal Medicine; Referring Provider Anesthesiology Pain Medicine; Visit Provider Anesthesiology Pain Medicine
DX: M47.812 Spondylosis without myelopathy or radiculopathy, cervical region (principal)
CPT/HCPCS: 72040

== ENCOUNTER 2023-12-02 08:30 | Day surgery (SDC) | payer MEDICARE, MEDICAID, SELFPAY ==
[2023-12-02 08:37] VITALS: BP 150/69; PULSE 84; RESP 18; TEMP 36.7
== END 2023-12-02 23:59 | disposition home or self-care (01) ==
LOC: PAT 06-04 11:11
PROVIDERS: PCP Internal Medicine; Visit Provider Anesthesiology Pain Medicine
DX: Z53.9 Procedure and treatment not carried out, unspecified reason (principal)
CPT/HCPCS: 29580

== ENCOUNTER → 2023-12-03 | Outpatient (CLI) | payer MEDICARE, MEDICAID, SELFPAY ==
--- NOTE | 2023-12-03 16:10 | RAD_ITS ---
STUDY: X-RAY - LEFT ANKLE REASON FOR EXAM: Female, 63 years old. FALL TECHNIQUE: 3 view(s) of the ankle. COMPARISON: 03/01/2023. FINDINGS: Cast obscures bone detail. Deformity of the distal fibula seen consistent with healed fracture. Diffuse demineralization. No acute fracture or dislocation is seen. Normal visualized talus and calcaneus. The visualized subtalar, talonavicular, calcaneocuboid and tarsal articulations are normal. The soft tissue structures are unremarkable. RAD/Ankle min 3 Views IMPRESSION: No acute fracture or dislocation seen. Electronically Signed: Xu Garza MD at 22:39 EDT ,
--- NOTE | 2023-12-03 16:10 | RAD_ITS ---
STUDY: X-RAY - RIGHT ANKLE REASON FOR EXAM: Female, 63 years old. FALL TECHNIQUE: 3 view(s) of the ankle. COMPARISON: Numerous prior studies were reviewed including 09/26/2023 and MRI 10/11/2023 FINDINGS: Cast obscures bone detail. No acute fracture or dislocation. Demineralization. No focal osteolytic lesion. Degenerative changes of ankle and midfoot. Lateral soft tissue swelling. RAD/Ankle min 3 Views IMPRESSION: Splint obscures bone detail. No definite acute fracture or dislocation. Electronically Signed: Xu Garza MD at 19:33 EDT ,
== END | disposition home or self-care (01) ==
PROVIDERS: PCP Internal Medicine; Referring Provider Anesthesiology Pain Medicine; Visit Provider Anesthesiology Pain Medicine
DX: M89.8X7 Other specified disorders of bone, ankle and foot (principal); W19.XXXA Unspecified fall, initial encounter; M81.0 Age-related osteoporosis without current pathological fracture
CPT/HCPCS: 73610

== ENCOUNTER 2023-12-12 08:45 | Outpatient (RCR) | payer MEDICARE, MEDICAID, SELFPAY ==
[2023-11-13 00:15] VITALS: BP 111/47; PULSE 67; RESP 18; TEMP 36.4
[2023-11-14 09:32] VITALS: BP 126/53; PULSE 83; RESP 18
--- NOTE | 2023-11-14 09:42 | PCM.WC.PN ---
History of Present Illness Date of Service: 11/14/23 Chief Complaint: Non healing right ankle ulcer History of Wound: Ms. Lam is a 62-year-old who was referred to this facility due to nonhealing right lateral ankle ulcer. Noted a year ago, started out as a bullae and subsequently opened up. She states that over the years, she has had alginate and collagen dressings done at her facility without any significant improvement. History of diabetes mellitus, she is not sure of her most recent A1c but states that it has ranged from 8-13. Also history of tobacco use, smokes daily. There is significant pain around the ulcer but she denies otherwise significant leg pain. Does not wear compression. Mostly sedentary but sleeps in the bed. She feels well otherwise, no chills, fever, nausea, vomiting or change in bowel habit reported. Subjective Subjective This is a 63-year-old female who continues to follow to the wound care center for a right lateral ankle ulceration. Patient is assisted by wheelchair today. She states she is taking the antibiotics as instructed. Will see infectious disease is 11/20/2023. Nursing facility has assisted in her dressing changes daily. States she has had increased swelling in both legs vs previous visit. Denies change to medication or increased salt intake. Trying to elevate best she can but states she could not tolerate the double tubigrip compression last week. She states the right ankle is painful but is improving. She denies constitutional symptoms. Denies further complaints. Objective Data Objective Data Vital Signs: Vital Signs Temp Pulse Resp BP O2 Del Method 97.5 F L 83 18 126/53 H Room Air 11/13/23 00:15 11/14/23 09:32 11/14/23 09:32 11/14/23 09:32 11/14/23 09:32 Oxygen Delivery Method Room Air Physical Exam Const alert, oriented x3 and no apparent distress General Appearance: cooperative HEENT normocephalic Eyes General Eye: normal appearance of both eyes Neck General: normal visual inspection Lymph Lymphatic: no lymphadenopathy noted and no lymphedema noted Resp normal respiratory effort Cardio regular rate and regular rhythm Extremity Extremity Narrative: Vascular: DP and PT pulses palpable. Capillary fill time less than 5 seconds to digits. Normal temperature gradient. Hair growth is absent to digits/foot. Neurologic: Light touch sensation diminished. Gross sensation intact. Protective sensation is significantly diminished secondary to diabetic peripheral polyneuropathy. Dermatologic: Skin does appear well-hydrated. Increased bilateral lower extremity edema R > L, with shiny taut skin to the right lower extremity. Right lateral ankle demonstrates ulceration distal to the lateral malleolus to the level of the subcutaneous tissue with mixed fibrogranular layer and serosanguineous drainage with hyperpigmented rim. There is some periwound maceration noted. Ulceration demonstrates no malodor, no purulent drainage, no localized erythema, no increased temperature, no palpable fluctuance/bogginess, no visible abscess formation. Musculoskeletal: Patient is in wheelchair and does have decreased muscle strength of the lower extremities bilateral. Skin no rashes or lesions noted, skin turgor normal and no jaundice Neuro moves all extremities Debridement Note Debridement Note Wound debrided: Right lateral ankle Laterality: Right Wound Grade/Stage: Esqueda stage II Type of Debridement: Excisional debridement Anesthesia Used: 5% Lidocaine Gel and - (10 cc 1% lidocaine with epinephrine) Depth: Down to and including healthy tissue and in the subcutaneous layer Percentage of wound debrided: 100 Instrument Used: 5mm curette Tissue Removed: Fibrous, devitalized subcutaneous, biofilm, slough Severity: Fat Layer Exposed Amount of bleeding with debridement: Mild Bleeding Controlled with: Compression and gauze Patient tolerated procedure: Patient tolerated procedure well Post-Debridement Measurements and Additional Note: Post-Debridement Measurements/Treatment - Nurse 1 - General Ulcer Assessment Start: 11/14/23 09:32 Freq: Status: Active Protocol: WC.LOWEXT Activity Type Activity Date Activity User E-sign Co-sign Detail Recorded Client Recorded Date Recorded By Document 11/14/23 09:32 KW Desktop 11/14/23 09:42 KW 11/14/23 09:32 - Today's Visit Information Type of service Follow-up Visit (Physician/CONFIGURATION MANAGEMENT SPECIALIST ) Arrival Mode Wheelchair Patient Identification Verified (Name & Yes ) Vital Signs Pulse Rate (60-100) 83 Pulse Location Monitor Respiratory Rate (12-18) 18 Respiratory rate source Observation Oxygen Delivery Method Room Air Blood Pressure (90/60-120/80) 126/53 H Blood Pressure Mean (mm Hg) 77 Source Monitor Position Semi-Fowlers Blood Pressure Location Left Arm History Since Last Visit- (Skip if this is Patient's initial visit) Have you changed medications since your No last visit? Any new allergies or adverse reactions No Had a fall/change in ADL's that may No increase risk of falls Signs or symptoms of abuse and/or No neglect since last visit Have you been in the hospital since your No last visit? Has dressing in place as prescribed Yes Has compression in place as prescribed Yes Has offloadiing in place as prescribed Yes Experienced any changes in pain level or No management Left Footwear Slipper Right Footwear Slipper Pain Scale: 0-10 Numeric Is Patient Pain Free? Yes WC - Nurse 1 - General Ulcer Measurement Start: 11/14/23 09:32 Freq: Status: Active Protocol: Activity Type Activity Date Activity User E-sign Co-sign Detail Recorded Client Recorded Date Recorded By Document 11/14/23 09:32 KW Desktop 11/14/23 09:42 KW 11/14/23 09:32 Wound Center Nurse 1 #1 R Lat Ankle -Current Size (cm) - Length 1.4 -Current Size (cm) - Width 0.8 -Current Size (cm) - Depth 0.5 -Total Square Cm 1.12 -Date of Last Picture (Recall this 11/14/23 field) -Photo Taken Yes -Exudate Amt Small -Exudate Type Serosanguineous -Wound Margin Distinct, Outline Attached -Granulation Amt Large (67-100%) -Granulation Quality Red -Texture (Lori-wound Skin Appearance) Assessed, Localized Edema -Moisture (Lori-wound Skin Appearance) Maceration -Color (Lori-wound Skin Appearance) Assessed, Erythema -Temperature (Lori-wound Skin No Abnormality Appearance) (Pt Warm) -Tenderness on Palpation (Lori-wound No Skin Appearance) -Ulcer Cleansing Rinsed/ Irrigated with Saline -Foul Odor after Cleansing No -Anesthetic Used 5% Lidocaine Gel Right Calf (cm) 43 Right Ankle (cm) 22 Assessment/Plan Assessment/Plan (1) 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: CODE(S): L97.312 - Non-pressure chronic ulcer of right ankle with fat layer exposed (2) Diabetes mellitus with diabetic polyneuropathy: CODE(S): E11.42 - Type 2 diabetes mellitus with diabetic polyneuropathy (3) Ankle osteomyelitis, right: CODE(S): M86.9 - Osteomyelitis, unspecified (4) Delayed wound healing: CODE(S): T14.8XXD - Other injury of unspecified body region, subsequent encounter (5) Hyperlipidemia: CODE(S): E78.5 - Hyperlipidemia, unspecified (6) History of tobacco use: CODE(S): Z87.891 - Personal history of nicotine dependence PLAN: Plan Patient seen and evaluated Patient did have radiographs performed 09/26/2023 of the right ankle and foot demonstrating generalized osteopenia, soft tissue swelling, and mild arthritis of the first MTPJ and TNJ. Recent laboratory data demonstrates WBC 9.8, ESR 15, glucose 210. No recent A1c was performed with last A1c of record 03/09/2019 which was 8% at this time. Recommended updating A1c. Wound cultures were obtained 09/26/2023 demonstrating MRSA positive. These cultures do reflect previous past cultures of MRSA positive from August and July 2023. Referral to Dr. Robbins was placed. Patient finished previously prescribed doxycycline 100 mg twice daily for [address] Laughlin. Ulceration was debrided as noted in the clinical panel above. Prior to debridement she was locally anesthetized proximal to the ulcerative site consisting of 10 cc 1% lidocaine with epinephrine with block to the sural nerve and superficial peroneal nerve proximal to ulceration. This is noted to improve patient's tolerance of debridement today. Ulceration to the right lateral ankle measures post-debridement measures 1.5 cm x 1.2 cm x 0.5 cm. No localized signs of infection. Change was made in dressings for improvement of source control which has been achieved with Dakin's wet-to-dry dressing. At this time we will discontinue the Dakin's. Olivia applied to wound bed and dressed with DSD. Bilateral unna boot compression applied today. She was instructed to not get dressing wet and to return for dressing change with nursing team on Saturday11/18/23. She is continuing oral antibiotic as instructed with stop date 11/18/23. She appointment with infectious disease scheduled 11/20/23, as she missed appointment 10/30/23 due to confusion from her transportation service. There is noted visual improvement of the wound bed with more healthy granular tissue noted following application of the Dakin's and with continued antibiotics. There is noted improvement in appearance of tissue but slight increase in size versus her previous visit due to increased lower extremity edema. With wound bed improving consideration will move to collagen based product today. Due to significant amount of pain to palpation about the right lateral ankle and patient underwent MRI 10/11/[address] Laughlin. MRI on 10/11/2023 demonstrating lateral soft tissue swelling with skin thickening. There is focal defect consistent with wound. There is marrow edema of the lateral malleolus and distal fibula, series 7 image 8. Impression: Osteomyelitis of the lateral malleolus of the distal fibula with soft tissue wound and swelling. I have reviewed this MRI series and do note the increased marrow edema of the lateral malleolus and series 7 image 8 but also an image 9. This does appear to be at the outer portion of the cortex of the bone as the remaining images do not demonstrate increased signal. I did discuss these images in detail with the patient today in addition to findings with concern for osteomyelitis. I did discuss possible surgical options with the patient in detail 10/17/2023. All options were discussed with the patient in detail including risks and benefits of each procedure. Discussed risk of BKA with patient today. Patient is understanding of this but would like to save the right lower extremity.. Also discussed possible treatment with IV antibiotics and aggressive surgical debridement of the soft tissue. Patient at this time would like to take time to consider options as she is on the oral antibiotic in addition to further discussion with infectious disease. Previous culture results of MRSA positive were reviewed. Due to the patient unable to get into infectious disease I did initiate outpatient oral antibiotic therapy on 10/17/2023. Rx doxycycline 100 mg twice daily x 14 days and Rx levofloxacin 750 mg twice daily x 14 days. Antibiotic stop date for first round 10/31/2023. This antibiotic regimen was extended due to next infectious disease appointment on 11/20/2023 with new stop date of antibiotics 11/18/2023. Recommended probiotic use with antibiotic and to take with food. She continues to take antibiotics as instructed and there is noted improvement in her wound with continued decrease in size and more healthy appearing tissue. Recommended adequate protein intake to aid in wound healing. Solomon supplementation is also recommended. Discussed with patient continue proper diabetic diet to aid in wound healing and provide good glycemic control. Discussed glycemic control and lowering of her blood sugar/A1c is important to aid in wound healing. She was again reminded to continue to wear proper fitting shoe gear and to ensure shoe gear is worn at all times for protection of the foot as she is diabetic with significant diminished sensation secondary to peripheral polyneuropathy. Discussed with patient the need for smoking cessation. Discussed impacts of wound healing from her smoking. Discussed with smoking blood flow is diminished to vital organs and extremities which is essential for her wound healing, in addition to affecting oxygen content/saturation of the bloodstream which is also essential for wound healing. Discussed smoking cessation aids and these were offered. Recommended continued discussion with her primary care physician to aid her in smoking cessation. 5 minutes total was spent on discussion 10/03/23. I discussed signs and symptoms of infection today. Discussed if she notices increasing redness of the skin about the ulcerative site moving up the leg, purulent drainage from the wound site, increasing foul odor from the wound, or if she develops fever greater than 101 degree accompanied by nausea, vomiting, chills that these are signs of a progressing infection and she should report to the ED for IV antibiotics and further evaluation. Patient voices understanding of this. The following work up and care recommendations were made: Dressing: Olivia, dry sterile dressing to Right ankle. Bilateral unna boot compression. Do not get wet. Wash: Do not get wet Tissue growth optimization: Olivia Offload: Padded protective dressing of the lateral ankle. Recommended waffle offloading boot while in bed. Vascular: DP and PT pulses weakly palpable bilateral. Monophasic Doppler to left pedal pulses. Edema: Mild edema noted to the lower extremities. Recommended continued Tubigrip compression with elevation of lower extremities. Infection: Osteomyelitis confirmed of the distal lateral malleolus by MRI 10/11/2023. She does demonstrate positive MRSA cultures and is currently on doxycycline and levofloxacin for 14 days, this was extended (stop date now for 11/18/23). Referral to infectious disease, next appointment 11/20/23. Pain: May take [id number] Tylenol for discomfort Host factors: DM type II with peripheral polyneuropathy, MRSA positive cultures, edema, chronic tobacco abuse. I answered all the patient's questions. To return to the wound healing center in 1 week or call sooner if the patient has any questions or concerns.
--- NOTE | 2023-11-18 09:14 | WC ---
11/15/2023 RIGHT LATERAL ANKLE
[2023-11-18 09:37] VITALS: BP 147/72; PULSE 90; RESP 16; TEMP 36.4
--- NOTE | 2023-11-18 09:40 | WC ---
pt noted w/ some new blistered areas to RLE. R heel w/ approx 3 x 2cm dark colored blister, not open. Dorsal foot and R med LE w/ approx 1 x 1 cm superficial open blistered areas. called dr chase. ok to reapply unna boots.
[2023-11-21 08:45] VITALS: BP 146/72; PULSE 84; RESP 15; TEMP 35.9
--- NOTE | 2023-11-21 09:57 | PN.PCM_ITS ---
History of Present Illness Date of Service: 11/21/23 Chief Complaint: Non healing right ankle ulcer History of Wound: Ms. Lam is a 62-year-old who was referred to this facility due to nonhealing right lateral ankle ulcer. Noted a year ago, started out as a bullae and subsequently opened up. She states that over the years, she has had alginate and collagen dressings done at her facility without any significant improvement. History of diabetes mellitus, she is not sure of her most recent A1c but states that it has ranged from 8-13. Also history of tobacco use, smokes daily. There is significant pain around the ulcer but she denies otherwise significant leg pain. Does not wear compression. Mostly sedentary but sleeps in the bed. She feels well otherwise, no chills, fever, nausea, vomiting or change in bowel habit reported. Subjective Subjective This is a 63-year-old female who continues to follow to the wound care center for a right lateral ankle ulceration. Patient is assisted by wheelchair today. She has finished oral antibiotics. She did see infectious disease 11/20/2023. She has kept unna boot clean, dry, and intact. She did return for dressing changes with nursing here at wound center. She states the right ankle is painful but is improving. She denies constitutional symptoms. Denies further complaints. Objective Data Objective Data Vital Signs: Vital Signs Temp Pulse Resp BP O2 Del Method 96.6 F L 84 15 146/72 H Room Air 11/21/23 08:45 11/21/23 08:45 11/21/23 08:45 11/21/23 08:45 11/18/23 09:37 Oxygen Delivery Method Room Air Physical Exam Const alert, oriented x3 and no apparent distress General Appearance: cooperative HEENT normocephalic Eyes General Eye: normal appearance of both eyes Neck General: normal visual inspection Lymph Lymphatic: no lymphadenopathy noted and no lymphedema noted Resp normal respiratory effort Cardio regular rate and regular rhythm Extremity Extremity Narrative: Vascular: DP and PT pulses palpable. Capillary fill time less than 5 seconds to digits. Normal temperature gradient. Hair growth is absent to digits/foot. Neurologic: Light touch sensation diminished. Gross sensation intact. Protective sensation is significantly diminished secondary to diabetic peripheral polyneuropathy. Dermatologic: Skin does appear well-hydrated. Increased bilateral lower extremity edema R > L, with shiny taut skin to the right lower extremity, this is improving. Right lateral ankle demonstrates ulceration distal to the lateral malleolus to the level of the subcutaneous tissue with mixed fibrogranular layer and serosanguineous drainage with hyperpigmented rim. There is improvement in periwound maceration noted. Ulceration demonstrates no malodor, no purulent drainage, no localized erythema, no increased temperature, no palpable fluctuance/bogginess, no visible abscess formation. Musculoskeletal: Patient is in wheelchair and does have decreased muscle strength of the lower extremities bilateral. Skin no rashes or lesions noted, skin turgor normal and no jaundice Neuro moves all extremities Debridement Note Debridement Note Wound debrided: Right lateral ankle Laterality: Right Wound Grade/Stage: Esqueda stage II Type of Debridement: Excisional debridement Anesthesia Used: 5% Lidocaine Gel and - (10 cc 1% lidocaine with epinephrine) Depth: Down to and including healthy tissue and in the subcutaneous layer Percentage of wound debrided: 100 Instrument Used: 5mm curette Tissue Removed: Fibrous, devitalized subcutaneous, biofilm, slough Severity: Fat Layer Exposed Bleeding Controlled with: Compression and gauze Patient tolerated procedure: Patient tolerated procedure well Post-Debridement Measurements and Additional Note: Post-Debridement Measurements/Treatment - Nurse 1 - General Ulcer Assessment Start: 11/14/23 09:32 Freq: Status: Active Protocol: CLOVIS Activity Type Activity Date Activity User E-sign Co-sign Detail Recorded Client Recorded Date Recorded By Document 11/14/23 09:32 KW Desktop 11/14/23 09:42 KW Document 11/18/23 09:37 BMF Desktop 11/18/23 09:39 BMF Document 11/21/23 08:45 ML Desktop 11/21/23 08:48 ML 11/14/23 11/18/23 11/21/23 09:32 09:37 08:45 - Today's Visit Information Type of service Follow-up Visit Nurse-only Follow-up Visit (Physician/STOCK PARTS INSPECTOR Visit (Physician/STOCK PARTS INSPECTOR ) ) Arrival Mode Wheelchair Wheelchair Wheelchair Transfer Assistance None None Patient Identification Verified (Name & Yes Yes Yes ) Patient Requires Transmission-Based No No Precautions Finger Stick Blood Sugar(mg/dl) (if 110 indicated): Blood Sugar Stated by Patient Vital Signs Temperature (97.8 F-99.1 F) 97.6 F L 96.6 F L Temperature Source Temporal Temporal Pulse Rate (60-100) 83 90 84 Pulse Location Monitor Monitor Monitor Respiratory Rate (12-18) 18 16 15 Respiratory rate source Observation Observation Observation Oxygen Delivery Method Room Air Room Air Blood Pressure (90/60-120/80) 126/53 H 147/72 H 146/72 H Blood Pressure Mean (mm Hg) 77 97 96 Source Monitor Monitor Monitor Position Semi-Fowlers Sitting Blood Pressure Location Left Arm Right Arm History Since Last Visit- (Skip if this is Patient's initial visit) Have you changed medications since your No No No last visit? Any new allergies or adverse reactions No No No Had a fall/change in ADL's that may No No No increase risk of falls Signs or symptoms of abuse and/or No No No neglect since last visit Have you been in the hospital since your No No No last visit? Has dressing in place as prescribed Yes Yes Yes Has compression in place as prescribed Yes Yes Yes Has offloadiing in place as prescribed Yes N/A Experienced any changes in pain level or No No management Left Footwear Slipper No Footwear Right Footwear Slipper No Footwear Other Footwear no socks or shoes Pain Scale: 0-10 Numeric Is Patient Pain Free? Yes No Yes R ANKLE WOUND -Description Sharp,Aching -Intensity 8 -Duration (hours) Chronic -Pain Behavior Withdrawal from Touch,Facial Grimacing -Alleviating Factors/Interventions Turning/ Repositioning, Distraction, Will continue to monitor, Emotional Support WC - Nurse 1 - General Ulcer Measurement Start: 11/14/23 09:32 Freq: Status: Active Protocol: Activity Type Activity Date Activity User E-sign Co-sign Detail Recorded Client Recorded Date Recorded By Document 11/14/23 09:32 KW Desktop 11/14/23 09:42 KW Document 11/18/23 09:37 BMF Desktop 11/18/23 09:39 BMF Document 11/21/23 08:45 ML Desktop 11/21/23 08:48 ML 11/14/23 11/18/23 11/21/23 09:32 09:37 08:45 Wound Center Nurse 1 #1 R Lat Ankle -Current Size (cm) - Length 1.4 1 -Current Size (cm) - Width 0.8 1 -Current Size (cm) - Depth 0.5 1.5 -Total Square Cm 1.12 1 -Date of Last Picture (Recall this 11/14/23 field) -Photo Taken Yes -Exudate Amt Small Medium -Exudate Type Serosanguineous Serosanguineous -Wound Margin Distinct, Distinct, Outline Outline Attached Attached -Granulation Amt Large (67-100%) Medium (34-66%) -Granulation Quality Red -Slough/Fibrin Yes -Necrosis Amt Medium (34-66%) -Necrotic Tissue Type Adherent Slough -Texture (Lori-wound Skin Appearance) Assessed, No Abnormality Localized Edema -Moisture (Lori-wound Skin Appearance) Maceration No Abnormality -Color (Lori-wound Skin Appearance) Assessed, No Abnormality Erythema -Temperature (Lori-wound Skin No Abnormality Appearance) (Pt Warm) -Tenderness on Palpation (Lori-wound No Yes Skin Appearance) -Ulcer Cleansing Rinsed/ Soap and Water Irrigated with Saline -Foul Odor after Cleansing No No -Anesthetic Used 5% Lidocaine 5% Lidocaine Gel Gel Lower Limb Edema Present Yes Right Calf (cm) 43 43.3 41 Right Ankle (cm) 22 28.4 28.5 Left Calf (cm) 38.6 36 Left Ankle (cm) 26.3 26.5 WC - Nurse 2 - General Ulcer CM Notes Start: 11/14/23 09:32 Freq: Status: Active Protocol: Activity Type Activity Date Activity User E-sign Co-sign Detail Recorded Client Recorded Date Recorded By Document 11/14/23 09:45 [facility] Desktop 11/14/23 10:22 [facility] Document 11/21/23 08:59 DS Desktop 11/21/23 09:20 DS 11/14/23 11/21/23 09:45 08:59 Wound Center Nurse 2 #1 R Lat Ankle -Time 10:06 09:02 -Correct Patient Yes Yes -Correct Side, Site, Position Yes Yes -Correct Procedure Yes Yes -Procedure Performed Yes Yes -Type of Procedure Debridement Debridement -Clinical Debridement Subcutaneous Subcutaneous -Tissue Removed Subcutaneous Subcutaneous -Post Debridement (cm) - Length 1.5 1.3 -Post Debridement (cm) - Width 1.2 0.8 -Post Debridement (cm) - Depth 0.5 0.5 -Total Square (Post) (cm) 1.80 1.04 -Area of Debridement (cm) - Length 1.5 1.3 -Area of Debridement (cm) - Width 1.2 0.8 -Total Square (Area) (cm) 1.80 1.04 -Tunneling No No -Undermining/Tunneling No No -Circular Undermining No No -Wound/Ulcer Outcome Not Healed Not Healed -Ulcer Cleansing Rinsed/ Rinsed/ Irrigated with Irrigated with Saline Saline -Foul Odor after Cleansing No No -Bioengineered Tissue No No -Injectable Lidocaine w/ Epi (%) 10 -Bleeding Controlled with Pressure Pressure -Treatment Response Procedure Procedure Tolerated Well Tolerated Well -Offloading No -Debridement - Subq, 1st 20sq cm Yes Yes Pain Scale: 0-10 Numeric Is Patient Pain Free? No Yes R ANKLE WOUND -Description Sharp -Intensity 5 -Duration (hours) Chronic -Pain Behavior Facial Grimacing -Pain Aggravating Factors Sitting, Debridement -Alleviating Factors/Interventions Will continue to monitor, Emotional Support -Comments INJECTABLE LIDO ADMINISTERED PER DR DOWNEY WC - Nurse 3 - General Ulcer D/C NN Start: 11/14/23 09:32 Freq: Status: Active Protocol: Activity Type Activity Date Activity User E-sign Co-sign Detail Recorded Client Recorded Date Recorded By Document 11/14/23 10:54 [employer] Desktop 11/14/23 10:54 [employer] Document 11/18/23 09:37 [facility] Desktop 11/18/23 09:39 [facility] Document 11/21/23 09:38 [facility] Desktop 11/21/23 09:43 F 11/14/23 11/18/23 11/21/23 10:54 09:37 09:38 Wound Care Center Nurse 3 #1 R Lat Ankle -Ulcer Cleansing Rinsed/ Rinsed/ Irrigated with Irrigated with Saline Saline -Foul Odor after Cleansing No No -Primary Dressing Applied Promogran Promogran AMD Dressing Olivia Matter Olivia Matter 4x4,Collagen Powder ($) -Other Dressing collagen powder ; amd foam drsg -Primary Dressing Covered/Secured with Dry Gauze & Roll Gauze, Secured with Tape -Other Covering w/c legs padded for offloading -AMD Dressing 4x4 1 -Promogran Olivia Matter 1 1 ble -Multi-Layered Wrap Application Unna Boot - Unna Boot - Unna Boot - Bilateral ($) Bilateral ($) Bilateral ($) Treatment Response Procedure Procedure Tolerated Well Tolerated Well Vital Signs Temperature (97.8 F-99.1 F) 97.6 F L Temperature Source Temporal Pulse Rate (60-100) 90 Pulse Location Monitor Respiratory Rate (12-18) 16 Respiratory rate source Observation Oxygen Delivery Method Room Air Blood Pressure (90/60-120/80) 147/72 H Blood Pressure Mean (mm Hg) 97 Source Monitor Position Sitting Blood Pressure Location Right Arm Pain Scale: 0-10 Numeric Is Patient Pain Free? Yes No Yes R ANKLE WOUND -Description Sharp,Aching -Intensity 8 -Duration (hours) Chronic -Pain Behavior Withdrawal from Touch,Facial Grimacing -Alleviating Factors/Interventions Turning/ Repositioning, Distraction, Will continue to monitor, Emotional Support WC - Visit Discharge Discharge Condition Stable Stable Stable Ambulatory Status Wheelchair Wheelchair Wheelchair Transportation ecf ecf Medication Reconcilliation completed & No provided to patient/care provider Clinical Summary of Care Provided Yes Facility Type [facility] Facility Facility Assessment/Plan Assessment/Plan (1) 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: CODE(S): L97.312 - Non-pressure chronic ulcer of right ankle with fat layer exposed (2) Diabetes mellitus with diabetic polyneuropathy: CODE(S): E11.42 - Type 2 diabetes mellitus with diabetic polyneuropathy (3) Ankle osteomyelitis, right: CODE(S): M86.9 - Osteomyelitis, unspecified (4) Delayed wound healing: CODE(S): T14.8XXD - Other injury of unspecified body region, subsequent encounter (5) Hyperlipidemia: CODE(S): E78.5 - Hyperlipidemia, unspecified (6) History of tobacco use: CODE(S): Z87.891 - Personal history of nicotine dependence PLAN: Plan Patient seen and evaluated Patient did have radiographs performed 09/26/2023 of the right ankle and foot demonstrating generalized osteopenia, soft tissue swelling, and mild arthritis of the first MTPJ and TNJ. Recent laboratory data demonstrates WBC 9.8, ESR 15, glucose 210. No recent A1c was performed with last A1c of record 03/09/2019 which was 8% at this time. Recommended updating A1c. Wound cultures were obtained 09/26/2023 demonstrating MRSA positive. These cultures do reflect previous past cultures of MRSA positive from August and July 2023. Referral to Dr. Robbins was placed ilya she did see him on 11/20/23. Patient finished previously prescribed doxycycline 100 mg twice daily for [address] Laughlin. Ulceration was debrided as noted in the clinical panel above. Prior to debridement she was locally anesthetized proximal to the ulcerative site consisting of 10 cc 1% lidocaine with epinephrine with block to the sural nerve and superficial peroneal nerve proximal to ulceration. This is noted to improve patient's tolerance of debridement today. Ulceration to the right lateral ankle measures post-debridement measures 1.3 cm x 0.8 cm x 0.5 cm. No localized signs of infection. Change was made in dressings for improvement of source control which has been achieved with Dakin's wet-to-dry dressing. We have discontinued the Dakin's. Collagen powder and PHMB dressing applied to wound bed and dressed with DSD. Bilateral unna boot compression applied today. She was instructed to not get dressing wet and to return for dressing change with nursing team on Saturday11/25/23. She has finished oral antibiotic as instructed (stop date 11/18/23). She had appointment with infectious disease 11/20/23. There is noted visual improvement of the wound bed with more healthy granular tissue noted following application of the Dakin's and with continued antibiotics. There is noted improvement in appearance of tissue versus previous visit with slight improvement in her edema and continued improvement in periwound maceration. With wound bed improving have moved to collagen based product today. Due to significant amount of pain to palpation about the right lateral ankle and patient underwent MRI 10/11/[address] Laughlin. MRI on 10/11/2023 demonstrating lateral soft tissue swelling with skin th ickening. There is focal defect consistent with wound. There is marrow edema of the lateral malleolus and distal fibula, series 7 image 8. Impression: Osteomyelitis of the lateral malleolus of the distal fibula with soft tissue wound and swelling. I have reviewed this MRI series and do note the increased marrow edema of the lateral malleolus and series 7 image 8 but also an image 9. This does appear to be at the outer portion of the cortex of the bone as the remaining images do not demonstrate increased signal. I did discuss these images in detail with the patient today in addition to findings with concern for osteomyelitis. I did discuss possible surgical options with the patient in detail 10/17/2023. All options were discussed with the patient in detail including risks and benefits of each procedure. Discussed risk of BKA with patient today. Patient is understanding of this but would like to save the right lower extremity. Also discussed possible treatment with IV antibiotics and aggressive surgical debridement of the soft tissue. Patient at this time would like to take time to consider options as she is on the oral antibiotic in addition to further discussion with infectious disease. Previous culture results of MRSA positive were reviewed. Due to the patient unable to get into infectious disease I did initiate outpatient oral antibiotic therapy on 10/17/2023. Rx doxycycline 100 mg twice daily x 14 days and Rx levofloxacin 750 mg twice daily x 14 days. Antibiotic stop date for first round 10/31/2023. This antibiotic regimen was extended due to next infectious disease appointment on 11/20/2023 with new stop date of antibiotics 11/18/2023. Recommended probiotic use with antibiotic and to take with food. She has finished oral antibiotics as instructed and there is noted improvement in her wound with continued decrease in size and more healthy appearing tissue. Recommended adequate protein intake to aid in wound healing. Solomon supplementation is also recommended. Discussed with patient continue proper diabetic diet to aid in wound healing and provide good glycemic control. Discussed glycemic control and lowering of her blood sugar/A1c is important to aid in wound healing. She was again reminded to continue to wear proper fitting shoe gear and to ensure shoe gear is worn at all times for protection of the foot as she is diabetic with significant diminished sensation secondary to peripheral polyneuropathy. Discussed with patient the need for smoking cessation. Discussed impacts of wound healing from her smoking. Discussed with smoking blood flow is diminished to vital organs and extremities which is essential for her wound healing, in addition to affecting oxygen content/saturation of the bloodstream which is also essential for wound healing. Discussed smoking cessation aids and these were offered. Recommended continued discussion with her primary care physician to aid her in smoking cessation. 5 minutes total was spent on discussion 10/03/23. I discussed signs and symptoms of infection today. Discussed if she notices increasing redness of the skin about the ulcerative site moving up the leg, purulent drainage from the wound site, increasing foul odor from the wound, or if she develops fever greater than 101 degree accompanied by nausea, vomiting, chills that these are signs of a progressing infection and she should report to the ED for IV antibiotics and further evaluation. Patient voices understanding of this. The following work up and care recommendations were made: Dressing: Olivia, dry sterile dressing to Right ankle. Bilateral unna boot compression. Do not get wet. Wash: Do not get wet Tissue growth optimization: Olivia Offload: Padded protective dressing of the lateral ankle. Recommended waffle offloading boot while in bed. Vascular: DP and PT pulses weakly palpable bilateral. Monophasic Doppler to left pedal pulses. Edema: Mild edema noted to the lower extremities. Recommended continued Tubigrip compression with elevation of lower extremities. Infection: Osteomyelitis confirmed of the distal lateral malleolus by MRI 10/11/2023. She does demonstrate positive MRSA cultures and is currently on doxycycline and levofloxacin for 14 days, this was extended (stop date now for 11/18/23). Referral to infectious disease, next appointment 11/20/23. Pain: May take [id number] Tylenol for discomfort Host factors: DM type II with peripheral polyneuropathy, MRSA positive cultures, edema, chronic tobacco abuse. I answered all the patient's questions. To return to the wound healing center in 1 week or call sooner if the patient has any questions or concerns.
[2023-11-25 08:29] VITALS: BP 137/68; PULSE 80; RESP 18; TEMP 35.7
[2023-11-28 08:07] VITALS: BP 138/63; PULSE 81; RESP 16; TEMP 35.5
--- NOTE | 2023-11-28 11:10 | WC ---
11/28/2023 RIGHT LATERAL ANKLE
--- NOTE | 2023-11-28 12:08 | PCM.WC.PN ---
History of Present Illness Date of Service: 11/28/23 Chief Complaint: Non healing right ankle ulcer History of Wound: Ms. Lam is a 62-year-old who was referred to this facility due to nonhealing right lateral ankle ulcer. Noted a year ago, started out as a bullae and subsequently opened up. She states that over the years, she has had alginate and collagen dressings done at her facility without any significant improvement. History of diabetes mellitus, she is not sure of her most recent A1c but states that it has ranged from 8-13. Also history of tobacco use, smokes daily. There is significant pain around the ulcer but she denies otherwise significant leg pain. Does not wear compression. Mostly sedentary but sleeps in the bed. She feels well otherwise, no chills, fever, nausea, vomiting or change in bowel habit reported. Subjective Subjective This is a 63-year-old female who continues to follow to the wound care center for a right lateral ankle ulceration. Patient is assisted by wheelchair today. She did see infectious disease 11/20/2023 and antibiotics were extended an additional 2 weeks. She has kept unna boot clean, dry, and intact. She did return for dressing changes with nursing here at wound center. Recently in ED on 11/24/23 for edema and during visit furosemide was increased from 20 mg to 60 mg daily. Reports swelling is improved. She states the right ankle is painful but is improving. She denies constitutional symptoms. Denies further complaints. Objective Data Objective Data Vital Signs: Vital Signs Temp Pulse Resp BP O2 Del Method 96 F L 81 16 138/63 H Room Air 11/28/23 08:07 11/28/23 08:07 11/28/23 08:07 11/28/23 08:07 11/28/23 08:07 Oxygen Delivery Method Room Air Physical Exam Const alert, oriented x3 and no apparent distress General Appearance: cooperative HEENT normocephalic Eyes General Eye: normal appearance of both eyes Neck General: normal visual inspection Lymph Lymphatic: no lymphadenopathy noted and no lymphedema noted Resp normal respiratory effort Cardio regular rate and regular rhythm Extremity Extremity Narrative: Vascular: DP and PT pulses palpable. Capillary fill time less than 5 seconds to digits. Normal temperature gradient. Hair growth is absent to digits/foot. Neurologic: Light touch sensation diminished. Gross sensation intact. Protective sensation is significantly diminished secondary to diabetic peripheral polyneuropathy. Dermatologic: Skin does appear well-hydrated. Bilateral lower extremity edema R > L, is improved. Right lateral ankle demonstrates ulceration distal to the lateral malleolus to the level of the subcutaneous tissue with mixed fibrogranular layer and serosanguineous drainage with hyperpigmented rim. There is improvement in periwound maceration noted. Ulceration demonstrates no malodor, no purulent drainage, no localized erythema, no increased temperature, no palpable fluctuance/bogginess, no visible abscess formation. Musculoskeletal: Patient is in wheelchair and does have decreased muscle strength of the lower extremities bilateral. Skin no rashes or lesions noted, skin turgor normal and no jaundice Neuro moves all extremities Debridement Note Debridement Note Wound debrided: Right lateral ankle Laterality: Right Wound Grade/Stage: Esqueda stage II Type of Debridement: Excisional debridement Anesthesia Used: 5% Lidocaine Gel and - (10 cc 1% lidocaine with epinephrine) Depth: Down to and including healthy tissue and in the subcutaneous layer Percentage of wound debrided: 100 Instrument Used: 5mm curette Tissue Removed: Fibrous, devitalized subcutaneous, biofilm, slough Severity: Fat Layer Exposed Amount of bleeding with debridement: Mild Bleeding Controlled with: Compression and gauze Patient tolerated procedure: Patient tolerated procedure well Post-Debridement Measurements and Additional Note: Post-Debridement Measurements/Treatment - Nurse 1 - General Ulcer Assessment Start: 11/14/23 09:32 Freq: Status: Active Protocol: .LOWEXT Activity Type Activity Date Activity User E-sign Co-sign Detail Recorded Client Recorded Date Recorded By Document 11/14/23 09:32 KW Desktop 11/14/23 09:42 KW Document 11/18/23 09:37 BMF Desktop 11/18/23 09:39 BMF Document 11/21/23 08:45 ML Desktop 11/21/23 08:48 ML Document 11/25/23 08:29 KW Desktop 11/25/23 08:33 KW Document 11/28/23 08:07 [facility] [email or web address] 11/28/23 08:16 BMF 11/14/23 11/18/23 11/21/23 09:32 09:37 08:45 - Today's Visit Information Type of service Follow-up Visit Nurse-only Follow-up Visit (Physician/WRAPPER STEMMER HAND Visit (Physician/WRAPPER [facility]MER HAND ) ) Arrival Mode Wheelchair Wheelchair Wheelchair Transfer Assistance None None Patient Identification Verified (Name & Yes Yes Yes ) Patient Requires Transmission-Based No No Precautions Finger Stick Blood Sugar(mg/dl) (if 110 indicated): Blood Sugar Stated by Patient Vital Signs Temperature (97.8 F-99.1 F) 97.6 F L 96.6 F L Temperature Source Temporal Temporal Pulse Rate (60-100) 83 90 84 Pulse Location Monitor Monitor Monitor Respiratory Rate (12-18) 18 16 15 Respiratory rate source Observation Observation Observation Oxygen Delivery Method Room Air Room Air Blood Pressure (90/60-120/80) 126/53 H 147/72 H 146/72 H Blood Pressure Mean (mm Hg) 77 97 96 Source Monitor Monitor Monitor Position Semi-Fowlers Sitting Blood Pressure Location Left Arm Right Arm History Since Last Visit- (Skip if this is Patient's initial visit) Have you changed medications since your No No No last visit? Any new allergies or adverse reactions No No No Had a fall/change in ADL's that may No No No increase risk of falls Signs or symptoms of abuse and/or No No No neglect since last visit Have you been in the hospital since your No No No last visit? Has dressing in place as prescribed Yes Yes Yes Has compression in place as prescribed Yes Yes Yes Has offloadiing in place as prescribed Yes N/A Experienced any changes in pain level or No No management Left Footwear Slipper No Footwear Right Footwear Slipper No Footwear Other Footwear no socks or shoes Pain Scale: 0-10 Numeric Is Patient Pain Free? Yes No Yes R ANKLE WOUND -Description Sharp,Aching -Intensity 8 -Duration (hours) Chronic -Pain Behavior Withdrawal from Touch,Facial Grimacing -Alleviating Factors/Interventions Turning/ Repositioning, Distraction, Will continue to monitor, Emotional Support 11/25/23 11/28/23 08:29 08:07 WC - Today's Visit Information Type of service Nurse-only Follow-up Visit Visit (Physician/WRAPPER [facility]MER HAND ) Arrival Mode Wheelchair Wheelchair Transfer Assistance None Patient Identification Verified (Name & Yes Yes ) Patient Requires Transmission-Based No Precautions Finger Stick Blood Sugar(mg/dl) (if indicated): Blood Sugar Vital Signs Temperature (97.8 F-99.1 F) 96.3 F L 96 F L Temperature Source Temporal Temporal Pulse Rate (60-100) 80 81 Pulse Location Monitor Monitor Respiratory Rate (12-18) 18 16 Respiratory rate source Observation Observation Oxygen Delivery Method Room Air Room Air Blood Pressure (90/60-120/80) 137/68 H 138/63 H Blood Pressure Mean (mm Hg) 91 88 Source Monitor Monitor Position Semi-Fowlers Sitting Blood Pressure Location Left Arm Right Arm History Since Last Visit- (Skip if this is Patient's initial visit) Have you changed medications since your Yes No last visit? Any new allergies or adverse reactions No No Had a fall/change in ADL's that may No No increase risk of falls Signs or symptoms of abuse and/or No No neglect since last visit Have you been in the hospital since your No No last visit? Has dressing in place as prescribed Yes Yes Has compression in place as prescribed Yes Yes Has offloadiing in place as prescribed Yes N/A Experienced any changes in pain level or No No management Left Footwear Slipper Slipper Right Footwear Slipper Slipper Other Footwear Pain Scale: 0-10 Numeric Is Patient Pain Free? Yes Yes R ANKLE WOUND -Description -Intensity -Duration (hours) -Pain Behavior -Alleviating Factors/Interventions WC - Nurse 1 - General Ulcer Measurement Start: 11/14/23 09:32 Freq: Status: Active Protocol: Activity Type Activity Date Activity User E-sign Co-sign Detail Recorded Client Recorded Date Recorded By Document 11/14/23 09:32 KW Desktop 11/14/23 09:42 KW Document 11/18/23 09:37 BMF Desktop 11/18/23 09:39 BMF Document 11/21/23 08:45 ML Desktop 11/21/23 08:48 ML Document 11/25/23 08:29 KW Desktop 11/25/23 08:33 KW Document 11/28/23 08:07 BMF [email or web address] 11/28/23 08:16 BMF 11/14/23 11/18/23 11/21/23 09:32 09:37 08:45 Wound Center Nurse 1 #1 R Lat Ankle -Combined with other wound -Current Size (cm) - Length 1.4 1 -Current Size (cm) - Width 0.8 1 -Current Size (cm) - Depth 0.5 1.5 -Total Square Cm 1.12 1 -Date of Last Picture (Recall this 11/14/23 field) -Photo Taken Yes -Epithelialization -Tunneling -Undermining/Tunneling -Circular Undermining -Exudate Amt Small Medium -Exudate Type Serosanguineous Serosanguineous -Wound Margin Distinct, Distinct, Outline Outline Attached Attached -Granulation Amt Large (67-100%) Medium (34-66%) -Granulation Quality Red -Slough/Fibrin Yes -Necrosis Amt Medium (34-66%) -Necrotic Tissue Type Adherent Slough -Texture (Lori-wound Skin Appearance) Assessed, No Abnormality Localized Edema -Moisture (Lori-wound Skin Appearance) Maceration No Abnormality -Color (Lori-wound Skin Appearance) Assessed, No Abnormality Erythema -Temperature (Lori-wound Skin No Abnormality Appearance) (Pt Warm) -Tenderness on Palpation (Lori-wound No Yes Skin Appearance) -Ulcer Cleansing Rinsed/ Soap and Water Irrigated with Saline -Foul Odor after Cleansing No No -Anesthetic Used 5% Lidocaine 5% Lidocaine Gel Gel Lower Limb Edema Present Yes Right Calf (cm) 43 43.3 41 Right Ankle (cm) 22 28.4 28.5 Left Calf (cm) 38.6 36 Left Ankle (cm) 26.3 26.5 11/25/23 11/28/23 08:29 08:07 Wound Center Nurse 1 #1 R Lat Ankle -Combined with other wound No -Current Size (cm) - Length 1.4 -Current Size (cm) - Width 0.9 -Current Size (cm) - Depth 0.5 -Total Square Cm 1.26 -Date of Last Picture (Recall this 11/28/23 field) -Photo Taken Yes -Epithelialization Small 1-33% -Tunneling No -Undermining/Tunneling No -Circular Undermining No -Exudate Amt Medium -Exudate Type Serosanguineous -Wound Margin Thickened -Granulation Amt Large (67-100%) -Granulation Quality Red -Slough/Fibrin Yes -Necrosis Amt Small (1-33%) -Necrotic Tissue Type Adherent Slough -Texture (Lori-wound Skin Appearance) Assessed, Localized Edema ,Scarring -Moisture (Lori-wound Skin Appearance) Assessed, Maceration -Color (Lori-wound Skin Appearance) Assessed -Temperature (Lori-wound Skin No Abnormality Appearance) (Pt Warm) -Tenderness on Palpation (Lori-wound Yes Skin Appearance) -Ulcer Cleansing Soap and Water -Foul Odor after Cleansing No -Anesthetic Used 5% Lidocaine Gel Lower Limb Edema Present Yes Right Calf (cm) 40.5 37.2 Right Ankle (cm) 27.7 26.5 Left Calf (cm) 37.6 36.2 Left Ankle (cm) 25.7 27.3 WC - Nurse 2 - General Ulcer CM Notes Start: 11/14/23 09:32 Freq: Status: Active Protocol: Activity Type Activity Date Activity User E-sign Co-sign Detail Recorded Client Recorded Date Recorded By Document 11/14/23 09:45 BMF Desktop 11/14/23 10:22 BMF Document 11/21/23 08:59 DS Desktop 11/21/23 09:20 DS Document 11/28/23 08:58 BMF [email or web address] 11/28/23 09:13 BMF 11/14/23 11/21/23 11/28/23 09:45 08:59 08:58 Wound Center Nurse 2 #1 R Lat Ankle -Time 10:06 09:02 08:58 -Correct Patient Yes Yes Yes -Correct Side, Site, Position Yes Yes Yes -Correct Procedure Yes Yes Yes -Procedure Performed Yes Yes Yes -Type of Procedure Debridement Debridement Debridement -Clinical Debridement Subcutaneous Subcutaneous -Tissue Removed Subcutaneous Subcutaneous Subcutaneous -Post Debridement (cm) - Length 1.5 1.3 1.4 -Post Debridement (cm) - Width 1.2 0.8 1.2 -Post Debridement (cm) - Depth 0.5 0.5 0.5 -Total Square (Post) (cm) 1.80 1.04 1.68 -Area of Debridement (cm) - Length 1.5 1.3 1.4 -Area of Debridement (cm) - Width 1.2 0.8 1.2 -Total Square (Area) (cm) 1.80 1.04 1.68 -Tunneling No No No -Undermining/Tunneling No No No -Circular Undermining No No No -Wound/Ulcer Outcome Not Healed Not Healed Not Healed -Ulcer Cleansing Rinsed/ Rinsed/ Rinsed/ Irrigated with Irrigated with Irrigated with Saline Saline Saline -Foul Odor after Cleansing No No No -Bioengineered Tissue No No No -Injectable Lidocaine w/ Epi (%) 10 1 -Injectable Lidocaine w/ Epi (mls) 10 -Bleeding Controlled with Pressure Pressure Pressure -Treatment Response Procedure Procedure Procedure Tolerated Well Tolerated Well Tolerated Well -Offloading No -Debridement - Subq, 1st 20sq cm Yes Yes Yes Pain Scale: 0-10 Numeric Is Patient Pain Free? No Yes No R ANKLE WOUND -Description Sharp Sharp,Aching -Intensity 5 8 -Duration (hours) Chronic Chronic -Pain Behavior Facial Facial Grimacing Grimacing -Pain Aggravating Factors Sitting, Debridement -Alleviating Factors/Interventions Will continue Medication, to monitor, Distraction, Emotional Will continue Support to monitor, Emotional Support -Comments INJECTABLE LIDO injectable ADMINISTERED lidocaine PER DR DOWNEY WC - Nurse 3 - General Ulcer D/C NN Start: 11/14/23 09:32 Freq: Status: Active Protocol: Activity Type Activity Date Activity User E-sign Co-sign Detail Recorded Client Recorded Date Recorded By Document 11/14/23 10:54 KW Desktop 11/14/23 10:54 KW Document 11/18/23 09:37 F Desktop 11/18/23 09:39 BMF Document 11/21/23 09:38 BMF Desktop 11/21/23 09:43 F Document 11/25/23 08:29 KW Desktop 11/25/23 08:33 KW Edit Result 11/25/23 08:29 KW (1) Desktop 11/25/23 08:38 KW Document 11/28/23 11:39 DL [id number] 11/28/23 11:41 DL (1) #1 R Lat Ankle - Ulcer Cleansing => Soap and Water - Primary Dressing Applied => Allevyn Foam 6x6,C => Hydrogel ($) - Primary Dressing Covered/Secured with => Dry Gauze & Roll => Gauze,Secured with => Tape - Allevyn Foam 6x6 => 1 ble - Multi-Layered Wrap Application => Unna Boot - => Bilateral ($) Discharge Condition => Stable Ambulatory Status => Wheelchair Medication Reconcilliation completed & => No provided to patient/care provider Clinical Summary of Care Provided => Yes 11/14/23 11/18/23 11/21/23 10:54 09:37 09:38 Wound Care Center Nurse 3 #1 R Lat Ankle -Ulcer Cleansing Rinsed/ Rinsed/ Irrigated with Irrigated with Saline Saline -Foul Odor after Cleansing No No -Primary Dressing Applied Promogran Promogran AMD Dressing Olivia Matter Olivia Matter 4x4,Collagen Powder ($) -Other Dressing collagen powder ; amd foam drsg -Primary Dressing Covered/Secured with Dry Gauze & Roll Gauze, Secured with Tape -Other Covering w/c legs padded for offloading -Allevyn Foam 6x6 -AMD Dressing 4x4 1 -Promogran Olivia Matter 1 1 ble -Multi-Layered Wrap Application Unna Boot - Unna Boot - Unna Boot - Bilateral ($) Bilateral ($) Bilateral ($) Treatment Response Procedure Procedure Tolerated Well Tolerated Well Vital Signs Temperature (97.8 F-99.1 F) 97.6 F L Temperature Source Temporal Pulse Rate (60-100) 90 Pulse Location Monitor Respiratory Rate (12-18) 16 Respiratory rate source Observation Oxygen Delivery Method Room Air Blood Pressure (90/60-120/80) 147/72 H Blood Pressure Mean (mm Hg) 97 Source Monitor Position Sitting Blood Pressure Location Right Arm Pain Scale: 0-10 Numeric Is Patient Pain Free? Yes No Yes R ANKLE WOUND -Description Sharp,Aching -Intensity 8 -Duration (hours) Chronic -Pain Behavior Withdrawal from Touch,Facial Grimacing -Alleviating Factors/Interventions Turning/ Repositioning, Distraction, Will continue to monitor, Emotional Support WC - Visit Discharge Discharge Condition Stable Stable Stable Ambulatory Status Wheelchair Wheelchair Wheelchair Transportation ecf ecf Medication Reconcilliation completed & No provided to patient/care provider Clinical Summary of Care Provided Yes Facility Type [facility] [employer] [facility] Facility Orders Sent 11/25/23 11/28/23 08:29 11:39 Wound Care Center Nurse 3 #1 R Lat Ankle -Ulcer Cleansing Soap and Water Rinsed/ Irrigated with Saline -Foul Odor after Cleansing -Primary Dressing Applied Allevyn Foam 6x6,C Hydrogel ($) -Other Dressing Purachol/nugel/ foam -Primary Dressing Covered/Secured with Dry Gauze & Dry Gauze & Roll Gauze, Roll Gauze, Secured with Secured with Tape Tape -Other Covering -Allevyn Foam 6x6 1 -AMD Dressing 4x4 -Promogran Olivia Matter ble -Multi-Layered Wrap Application Unna Boot - Unna Boot - Bilateral ($) Bilateral ($) Treatment Response Procedure Tolerated Well Vital Signs Temperature (97.8 F-99.1 F) 96.3 F L Temperature Source Temporal Pulse Rate (60-100) 80 Pulse Location Monitor Respiratory Rate (12-18) 18 Respiratory rate source Observation Oxygen Delivery Method Room Air Blood Pressure (90/60-120/80) 137/68 H Blood Pressure Mean (mm Hg) 91 Source Monitor Position Semi-Fowlers Blood Pressure Location Left Arm Pain Scale: 0-10 Numeric Is Patient Pain Free? Yes Yes R ANKLE WOUND -Description -Intensity -Duration (hours) -Pain Behavior -Alleviating Factors/Interventions WC - Visit Discharge Discharge Condition Stable Stable Ambulatory Status Wheelchair Wheelchair Transportation Private Auto Medication Reconcilliation completed & No provided to patient/care provider Clinical Summary of Care Provided Yes Facility Type [facility] Facility Orders Sent Yes Assessment/Plan Assessment/Plan (1) 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: CODE(S): L97.312 - Non-pressure chronic ulcer of right ankle with fat layer exposed (2) Diabetes mellitus with diabetic polyneuropathy: CODE(S): E11.42 - Type 2 diabetes mellitus with diabetic polyneuropathy (3) Ankle osteomyelitis, right: CODE(S): M86.9 - Osteomyelitis, unspecified (4) Delayed wound healing: CODE(S): T14.8XXD - Other injury of unspecified body region, subsequent encounter (5) Hyperlipidemia: CODE(S): E78.5 - Hyperlipidemia, unspecified (6) History of tobacco use: CODE(S): Z87.891 - Personal history of nicotine dependence PLAN: Plan Patient seen and evaluated Patient did have radiographs performed 09/26/2023 of the right ankle and foot demonstrating generalized osteopenia, soft tissue swelling, and mild arthritis of the first MTPJ and TNJ. Recent laboratory data demonstrates WBC 9.8, ESR 15, glucose 210. No recent A1c was performed with last A1c of record 03/09/2019 which was 8% at this time. Recommended updating A1c. Wound cultures were obtained 09/26/2023 demonstrating MRSA positive. These cultures do reflect previous past cultures of MRSA positive from August and July 2023. Referral to Dr. Robbins was placed and she did see him on 11/20/23. Patient finished previously prescribed doxycycline 100 mg twice daily for [address] Laughlin. Ulceration was debrided as noted in the clinical panel above. Prior to debridement she was locally anesthetized proximal to the ulcerative site consisting of 10 cc 1% lidocaine with epinephrine with block to the sural nerve and superficial peroneal nerve proximal to ulceration. This is noted to improve patient's tolerance of debridement today. Ulceration to the right lateral ankle measures post-debridement measures 1.4 cm x 1.2 cm x 0.5 cm. No localized signs of infection. Change was made in dressings for improvement of source control which has been achieved with Dakin's wet-to-dry dressing. We have discontinued the Dakin's. Collagen powder and PHMB dressing applied to wound bed and dressed with DSD. Bilateral unna boot compression applied today. She was instructed to not get dressing wet and to return for dressing change with nursing team on Saturday12/02/23. She had appointment with infectious disease 11/20/23, and oral antibiotics were extended an additional 2 weeks. There is noted visual improvement of the wound bed with more healthy granular tissue noted following application of the Dakin's and with continued antibiotics. There is noted improvement in appearance of tissue versus previous visit with improvement in her edema following the increase of her furosemide from 20 mg to 60 mg daily. There is also continued improvement in periwound maceration. With wound bed improved, we have moved to collagen based product as of 11/21/2023. Due to significant amount of pain to palpation about the right lateral ankle and patient underwent MRI 10/11/[address] Laughlin. MRI on 10/11/2023 demonstrating lateral soft tissue swelling with skin thickening. There is focal defect consistent with wound. There is marrow edema of the lateral malleolus and distal fibula, series 7 image 8. Impression: Osteomyelitis of the lateral malleolus of the distal fibula with soft tissue wound and swelling. I have reviewed this MRI series and do note the increased marrow edema of the lateral malleolus and series 7 image 8 but also an image 9. This does appear to be at the outer portion of the cortex of the bone as the remaining images do not demonstrate increased signal. I did discuss these images in detail with the patient today in addition to findings with concern for osteomyelitis. I did discuss possible surgical options with the patient in detail 10/17/2023. All options were discussed with the patient in detail including risks and benefits of each procedure. Discussed risk of BKA with patient today. Patient is understanding of this but would like to save the right lower extremity. Also discussed possible treatment with IV antibiotics and aggressive surgical debridement of the soft tissue. Patient at this time would like to take time to consider options as she is on the oral antibiotic in addition to further discussion with infectious disease. Previous culture results of MRSA positive were reviewed. Due to the patient unable to get into infectious disease I did initiate outpatient oral antibiotic therapy on 10/17/2023. Rx doxycycline 100 mg twice daily x 14 days and Rx levofloxacin 750 mg daily x 14 days. Antibiotic stop date for first round 10/31/2023. This antibiotic regimen was extended due to next infectious disease appointment on 11/20/2023 with stop date of antibiotics 11/18/2023. Following seeing infectious disease he did extend antibiotic an additional 2 weeks. Recommended probiotic use with antibiotic and to take with food. She has finished oral antibiotics as instructed and there is noted improvement in her wound with continued decrease in size and more healthy appearing tissue. Recommended adequate protein intake to aid in wound healing. Solomon supplementation is also recommended. Discussed with patient continue proper diabetic diet to aid in wound healing and provide good glycemic control. Discussed glycemic control and lowering of her blood sugar/A1c is important to aid in wound healing. She was again reminded to continue to wear proper fitting shoe gear and to ensure shoe gear is worn at all times for protection of the foot as she is diabetic with significant diminished sensation secondary to peripheral polyneuropathy. Discussed with patient the need for smoking cessation. Discussed impacts of wound healing from her smoking. Discussed with smoking blood flow is diminished to vital organs and extremities which is essential for her wound healing, in addition to affecting oxygen content/saturation of the bloodstream which is also essential for wound healing. Discussed smoking cessation aids and these were offered. Recommended continued discussion with her primary care physician to aid her in smoking cessation. 5 minutes total was spent on discussion 10/03/23. I discussed signs and symptoms of infection today. Discussed if she notices increasing redness of the skin about the ulcerative site moving up the leg, purulent drainage from the wound site, increasing foul odor from the wound, or if she develops fever greater than 101 degree accompanied by nausea, vomiting, chills that these are signs of a progressing infection and she should report to the ED for IV antibiotics and further evaluation. Patient voices understanding of this. The following work up and care recommendations were made: Dressing: Collagen Powder, Hydrogel, PHMB dressing with, dry sterile dressing to Right ankle. Bilateral unna boot compression. Do not get wet. Wash: Do not get wet Tissue growth optimization: Collagen powder/hydrogel Offload: Padded protective dressing of the lateral ankle. Recommended waffle offloading boot while in bed. Vascular: DP and PT pulses weakly palpable bilateral. Monophasic Doppler to left pedal pulses. Edema: Mild edema noted to the lower extremities. Recommended continued Tubigrip compression with elevation of lower extremities. Infection: Osteomyelitis confirmed of the distal lateral malleolus by MRI 10/11/2023. She does demonstrate positive MRSA cultures and is currently on doxycycline and levofloxacin for 14 days, this was extended (stop date now for 11/18/23). Referral to infectious disease, next appointment 11/20/23. Pain: May take [id number] Tylenol for discomfort Host factors: DM type II with peripheral polyneuropathy, MRSA positive cultures, edema, chronic tobacco abuse. I answered all the patient's questions. To return to the wound healing center in 1 week or call sooner if the patient has any questions or concerns.
[2023-12-05 09:18] VITALS: BP 122/57; PULSE 84; RESP 18; TEMP 36.1
--- NOTE | 2023-12-05 10:13 | PCM.WC.PN ---
History of Present Illness Date of Service: 12/05/23 Chief Complaint: Non healing right ankle ulcer History of Wound: Ms. Lam is a 63-year-old who was referred to this facility due to nonhealing right lateral ankle ulcer. Noted a year ago, started out as a bullae and subsequently opened up. She states that over the years, she has had alginate and collagen dressings done at her facility without any significant improvement. History of diabetes mellitus, she is not sure of her most recent A1c but states that it has ranged from 8-13. Also history of tobacco use, smokes daily. There is significant pain around the ulcer but she denies otherwise significant leg pain. Does not wear compression. Mostly sedentary but sleeps in the bed. She feels well otherwise, no chills, fever, nausea, vomiting or change in bowel habit reported. Subjective Subjective This is a 63-year-old female who continues to follow to the wound care center for a right lateral ankle ulceration. Patient is assisted by wheelchair today. She did see infectious disease 11/20/2023 and antibiotics were extended an additional 2 weeks. She has kept unna boot clean, dry, and intact. She did return for dressing changes with nursing here at wound center. Edema continues to improve to bilateral lower extremities and face since increase in Lasix. She states the right ankle is painful but is slowly improving. She denies constitutional symptoms. Denies further complaints. Objective Data Objective Data Vital Signs: Vital Signs Temp Pulse Resp BP O2 Del Method 97 F L 84 18 122/57 H Room Air 12/05/23 09:18 12/05/23 09:18 12/05/23 09:18 12/05/23 09:18 11/28/23 08:07 Oxygen Delivery Method Room Air Physical Exam Const alert, oriented x3 and no apparent distress General Appearance: cooperative HEENT normocephalic Eyes General Eye: normal appearance of both eyes Neck General: normal visual inspection Lymph Lymphatic: no lymphadenopathy noted and no lymphedema noted Resp normal respiratory effort Cardio regular rate and regular rhythm Extremity Extremity Narrative: Vascular: DP and PT pulses palpable. Capillary fill time less than 5 seconds to digits. Normal temperature gradient. Hair growth is absent to digits/foot. Neurologic: Light touch sensation diminished. Gross sensation intact. Protective sensation is significantly diminished secondary to diabetic peripheral polyneuropathy. Dermatologic: Skin does appear well-hydrated. Bilateral lower extremity edema R > L, is much improved. Right lateral ankle demonstrates ulceration distal to the lateral malleolus to the level of the subcutaneous tissue with mixed fibrogranular layer and serosanguineous drainage with hyperpigmented rim. There is improvement in periwound maceration noted. Ulceration demonstrates no malodor, no purulent drainage, no localized erythema, no increased temperature, no palpable fluctuance/bogginess, no visible abscess formation. Musculoskeletal: Patient is in wheelchair and does have decreased muscle strength of the lower extremities bilateral. Skin no rashes or lesions noted, skin turgor normal and no jaundice Neuro moves all extremities Debridement Note Debridement Note Wound debrided: Right lateral ankle Laterality: Right Wound Grade/Stage: Esqueda stage II Type of Debridement: Excisional debridement Anesthesia Used: 5% Lidocaine Gel and - (10 cc 1% lidocaine with epinephrine) Depth: Down to and including healthy tissue and in the subcutaneous layer Percentage of wound debrided: 100 Instrument Used: 5mm curette Tissue Removed: Fibrous, devitalized subcutaneous, biofilm, slough Severity: Fat Layer Exposed Amount of bleeding with debridement: Mild Bleeding Controlled with: Compression and gauze Patient tolerated procedure: Patient tolerated procedure well Post-Debridement Measurements and Additional Note: Post-Debridement Measurements/Treatment WC - Nurse 1 - General Ulcer Assessment Start: 11/14/23 09:32 Freq: Status: Active Protocol: CLOV[facility] Activity Type Activity Date Activity User E-sign Co-sign Detail Recorded Client Recorded Date Recorded By Document 11/14/23 09:32 KW Desktop 11/14/23 09:42 KW Document 11/18/23 09:37 BMF Desktop 11/18/23 09:39 BMF Document 11/21/23 08:45 ML Desktop 11/21/23 08:48 ML Document 11/25/23 08:29 KW Desktop 11/25/23 08:33 KW Document 11/28/23 08:07 BMF 10..25.7 11/28/23 08:16 BMF Document 12/04/23 08:24 KW wound center 12/04/23 08:25 KW Document 12/05/23 09:18 DL 10.10.25.7 12/05/23 09:30 DL 11/14/23 11/18/23 11/21/23 09:32 09:37 08:45 - Today's Visit Information Type of service Follow-up Visit Nurse-only Follow-up Visit (Physician/ENGAGEMENT QUALITY CONSULTANT Visit (Physician/ENGAGEMENT QUALITY CONSULTANT ) ) Arrival Mode Wheelchair Wheelchair Wheelchair Transfer Assistance None None Patient Identification Verified (Name & Yes Yes Yes ) Patient Requires Transmission-Based No No Precautions Finger Stick Blood Sugar(mg/dl) (if 110 indicated): Blood Sugar Stated by Patient Vital Signs Temperature (97.8 F-99.1 F) 97.6 F L 96.6 F L Temperature Source Temporal Temporal Pulse Rate (60-100) 83 90 84 Pulse Location Monitor Monitor Monitor Respiratory Rate (12-18) 18 16 15 Respiratory rate source Observation Observation Observation Oxygen Delivery Method Room Air Room Air Blood Pressure (90/60-120/80) 126/53 H 147/72 H 146/72 H Blood Pressure Mean (mm Hg) 77 97 96 Source Monitor Monitor Monitor Position Semi-Fowlers Sitting Blood Pressure Location Left Arm Right Arm History Since Last Visit- (Skip if this is Patient's initial visit) Have you changed medications since your No No No last visit? Any new allergies or adverse reactions No No No Had a fall/change in ADL's that may No No No increase risk of falls Signs or symptoms of abuse and/or No No No neglect since last visit Have you been in the hospital since your No No No last visit? Has dressing in place as prescribed Yes Yes Yes Has compression in place as prescribed Yes Yes Yes Has offloadiing in place as prescribed Yes N/A Experienced any changes in pain level or No No management Left Footwear Slipper No Footwear Right Footwear Slipper No Footwear Other Footwear no socks or shoes Pain Scale: 0-10 Numeric Is Patient Pain Free? Yes No Yes R ANKLE WOUND -Description Sharp,Aching -Intensity 8 -Duration (hours) Chronic -Pain Behavior Withdrawal from Touch,Facial Grimacing -Alleviating Factors/Interventions Turning/ Repositioning, Distraction, Will continue to monitor, Emotional Support 11/25/23 11/28/23 12/04/23 08:29 08:07 08:24 - Today's Visit Information Type of service Nurse-only Follow-up Visit Nurse-only Visit (Physician/ENGAGEMENT QUALITY CONSULTANT Visit ) Arrival Mode Wheelchair Wheelchair Wheelchair Transfer Assistance None Patient Identification Verified (Name & Yes Yes Yes ) Patient Requires Transmission-Based No Precautions Finger Stick Blood Sugar(mg/dl) (if indicated): Blood Sugar Vital Signs Temperature (97.8 F-99.1 F) 96.3 F L 96 F L Temperature Source Temporal Temporal Pulse Rate (60-100) 80 81 Pulse Location Monitor Monitor Respiratory Rate (12-18) 18 16 Respiratory rate source Observation Observation Oxygen Delivery Method Room Air Room Air Blood Pressure (90/60-120/80) 137/68 H 138/63 H Blood Pressure Mean (mm Hg) 91 88 Source Monitor Monitor Position Semi-Fowlers Sitting Blood Pressure Location Left Arm Right Arm History Since Last Visit- (Skip if this is Patient's initial visit) Have you changed medications since your Yes No No last visit? Any new allergies or adverse reactions No No No Had a fall/change in ADL's that may No No No increase risk of falls Signs or symptoms of abuse and/or No No No neglect since last visit Have you been in the hospital since your No No No last visit? Has dressing in place as prescribed Yes Yes Yes Has compression in place as prescribed Yes Yes Yes Has offloadiing in place as prescribed Yes N/A Yes Experienced any changes in pain level or No No No management Left Footwear Slipper Slipper Slipper Right Footwear Slipper Slipper Slipper Other Footwear Pain Scale: 0-10 Numeric Is Patient Pain Free? Yes Yes Yes R ANKLE WOUND -Description -Intensity -Duration (hours) -Pain Behavior -Alleviating Factors/Interventions 12/05/23 09:18 - Today's Visit Information Type of service Follow-up Visit (Physician/ENGAGEMENT QUALITY CONSULTANT ) Arrival Mode Wheelchair Transfer Assistance None Patient Identification Verified (Name & Yes ) Patient Requires Transmission-Based No Precautions Finger Stick Blood Sugar(mg/dl) (if indicated): Blood Sugar Vital Signs Temperature (97.8 F-99.1 F) 97 F L Temperature Source Temporal Pulse Rate (60-100) 84 Pulse Location Monitor Respiratory Rate (12-18) 18 Respiratory rate source Observation Oxygen Delivery Method Blood Pressure (90/60-120/80) 122/57 H Blood Pressure Mean (mm Hg) 78 Source Monitor Position Blood Pressure Location History Since Last Visit- (Skip if this is Patient's initial visit) Have you changed medications since your No last visit? Any new allergies or adverse reactions No Had a fall/change in ADL's that may No increase risk of falls Signs or symptoms of abuse and/or No neglect since last visit Have you been in the hospital since your No last visit? Has dressing in place as prescribed Yes Has compression in place as prescribed Yes Has offloadiing in place as prescribed Yes Experienced any changes in pain level or No management Left Footwear Right Footwear Other Footwear Pain Scale: 0-10 Numeric Is Patient Pain Free? Yes R ANKLE WOUND -Description -Intensity -Duration (hours) -Pain Behavior -Alleviating Factors/Interventions WC - Nurse 1 - General Ulcer Measurement Start: 11/14/23 09:32 Freq: Status: Active Protocol: Activity Type Activity Date Activity User E-sign Co-sign Detail Recorded Client Recorded Date Recorded By Document 11/14/23 09:32 KW Desktop 11/14/23 09:42 KW Document 11/18/23 09:37 BMF Desktop 11/18/23 09:39 BMF Document 11/21/23 08:45 ML Desktop 11/21/23 08:48 ML Document 11/25/23 08:29 KW Desktop 11/25/23 08:33 KW Document 11/28/23 08:07 BMF 10.10.25.7 11/28/23 08:16 BMF Document 12/05/23 09:18 DL [id number] 12/05/23 09:30 DL 11/14/23 11/18/23 11/21/23 09:32 09:37 08:45 Wound Center Nurse 1 #1 R Lat Ankle -Combined with other wound -Current Size (cm) - Length 1.4 1 -Current Size (cm) - Width 0.8 1 -Current Size (cm) - Depth 0.5 1.5 -Total Square Cm 1.12 1 -Date of Last Picture (Recall this 11/14/23 field) -Photo Taken Yes -Epithelialization -Tunneling -Undermining/Tunneling -Circular Undermining -Exudate Amt Small Medium -Exudate Type Serosanguineous Serosanguineous -Wound Margin Distinct, Distinct, Outline Outline Attached Attached -Granulation Amt Large (67-100%) Medium (34-66%) -Granulation Quality Red -Slough/Fibrin Yes -Necrosis Amt Medium (34-66%) -Necrotic Tissue Type Adherent Slough -Structure Exposed -Texture (Lori-wound Skin Appearance) Assessed, No Abnormality Localized Edema -Moisture (Lori-wound Skin Appearance) Maceration No Abnormality -Color (Lori-wound Skin Appearance) Assessed, No Abnormality Erythema -Temperature (Lori-wound Skin No Abnormality Appearance) (Pt Warm) -Tenderness on Palpation (Lori-wound No Yes Skin Appearance) -Ulcer Cleansing Rinsed/ Soap and Water Irrigated with Saline -Foul Odor after Cleansing No No -Anesthetic Used 5% Lidocaine 5% Lidocaine Gel Gel Lower Limb Edema Present Yes Right Calf (cm) 43 43.3 41 Right Ankle (cm) 22 28.4 28.5 Left Calf (cm) 38.6 36 Left Ankle (cm) 26.3 26.5 11/25/23 11/28/23 12/05/23 08:29 08:07 09:18 Wound Center Nurse 1 #1 R Lat Ankle -Combined with other wound No -Current Size (cm) - Length 1.4 1.5 -Current Size (cm) - Width 0.9 1.2 -Current Size (cm) - Depth 0.5 0.5 -Total Square Cm 1.26 1.80 -Date of Last Picture (Recall this 11/28/23 field) -Photo Taken Yes Yes -Epithelialization Small 1-33% -Tunneling No -Undermining/Tunneling No -Circular Undermining No -Exudate Amt Medium Medium -Exudate Type Serosanguineous Serosanguineous -Wound Margin Thickened Thickened -Granulation Amt Large (67-100%) Small (1-33%) -Granulation Quality Red [place] -Slough/Fibrin Yes -Necrosis Amt Small (1-33%) Small (1-33%) -Necrotic Tissue Type Adherent Slough Adherent Slough -Structure Exposed N/A -Texture (Lori-wound Skin Appearance) Assessed, Scarring Localized Edema ,Scarring -Moisture (Lori-wound Skin Appearance) Assessed, Maceration Maceration -Color (Lori-wound Skin Appearance) Assessed No Abnormality -Temperature (Lori-wound Skin No Abnormality No Abnormality Appearance) (Pt Warm) (Pt Warm) -Tenderness on Palpation (Lori-wound Yes Skin Appearance) -Ulcer Cleansing Soap and Water Soap and Water -Foul Odor after Cleansing No No -Anesthetic Used 5% Lidocaine 5% Lidocaine Gel Gel Lower Limb Edema Present Yes Right Calf (cm) 40.5 37.2 37 Right Ankle (cm) 27.7 26.5 26.4 Left Calf (cm) 37.6 36.2 36.8 Left Ankle (cm) 25.7 27.3 24.5 WC - Nurse 2 - General Ulcer CM Notes Start: 11/14/23 09:32 Freq: Status: Active Protocol: Activity Type Activity Date Activity User E-sign Co-sign Detail Recorded Client Recorded Date Recorded By Document 11/14/23 09:45 BMF Desktop 11/14/23 10:22 BMF Document 11/21/23 08:59 DS Desktop 11/21/23 09:20 DS Document 11/28/23 08:58 [facility] 10.10.25.7 11/28/23 09:13 BMF Document 12/05/23 09:42 [facility] [id number] 12/05/23 09:51 BMF 11/14/23 11/21/23 11/28/23 09:45 08:59 08:58 Wound Center Nurse 2 #1 R Lat Ankle -Time 10:06 09:02 08:58 -Correct Patient Yes Yes Yes -Correct Side, Site, Position Yes Yes Yes -Correct Procedure Yes Yes Yes -Procedure Performed Yes Yes Yes -Type of Procedure Debridement Debridement Debridement -Clinical Debridement Subcutaneous Subcutaneous -Tissue Removed Subcutaneous Subcutaneous Subcutaneous -Post Debridement (cm) - Length 1.5 1.3 1.4 -Post Debridement (cm) - Width 1.2 0.8 1.2 -Post Debridement (cm) - Depth 0.5 0.5 0.5 -Total Square (Post) (cm) 1.80 1.04 1.68 -Area of Debridement (cm) - Length 1.5 1.3 1.4 -Area of Debridement (cm) - Width 1.2 0.8 1.2 -Total Square (Area) (cm) 1.80 1.04 1.68 -Tunneling No No No -Undermining/Tunneling No No No -Circular Undermining No No No -Wound/Ulcer Outcome Not Healed Not Healed Not Healed -Ulcer Cleansing Rinsed/ Rinsed/ Rinsed/ Irrigated with Irrigated with Irrigated with Saline Saline Saline -Foul Odor after Cleansing No No No -Bioengineered Tissue No No No -Injectable Lidocaine w/ Epi (%) 10 1 -Injectable Lidocaine w/ Epi (mls) 10 -Bleeding Controlled with Pressure Pressure Pressure -Treatment Response Procedure Procedure Procedure Tolerated Well Tolerated Well Tolerated Well -Offloading No -Debridement - Subq, 1st 20sq cm Yes Yes Yes Pain Scale: 0-10 Numeric Is Patient Pain Free? No Yes No R ANKLE WOUND -Description Sharp Sharp,Aching -Intensity 5 8 -Duration (hours) Chronic Chronic -Pain Behavior Facial Facial Grimacing Grimacing -Pain Aggravating Factors Sitting, Debridement -Alleviating Factors/Interventions Will continue Medication, to monitor, Distraction, Emotional Will continue Support to monitor, Emotional Support -Comments INJECTABLE LIDO injectable ADMINISTERED lidocaine PER DR DOWNEY 12/05/23 09:42 Wound Center Nurse 2 #1 R Lat Ankle -Time 09:43 -Correct Patient Yes -Correct Side, Site, Position Yes -Correct Procedure Yes -Procedure Performed Yes -Type of Procedure Debridement -Clinical Debridement Subcutaneous -Tissue Removed Subcutaneous -Post Debridement (cm) - Length 1.5 -Post Debridement (cm) - Width 1.2 -Post Debridement (cm) - Depth 0.4 -Total Square (Post) (cm) 1.80 -Area of Debridement (cm) - Length 1.5 -Area of Debridement (cm) - Width 1.2 -Total Square (Area) (cm) 1.80 -Tunneling No -Undermining/Tunneling No -Circular Undermining No -Wound/Ulcer Outcome Not Healed -Ulcer Cleansing Rinsed/ Irrigated with Saline -Foul Odor after Cleansing No -Bioengineered Tissue No -Injectable Lidocaine w/ Epi (%) 1 -Injectable Lidocaine w/ Epi (mls) 10 -Bleeding Controlled with Pressure -Treatment Response Procedure Tolerated Well -Offloading -Debridement - Subq, 1st 20sq cm Yes Pain Scale: 0-10 Numeric Is Patient Pain Free? No R ANKLE WOUND -Description Sharp -Intensity 6 -Duration (hours) Chronic -Pain Behavior Facial Grimacing -Pain Aggravating Factors -Alleviating Factors/Interventions Medication, Distraction, Will continue to monitor, Emotional Support -Comments INJECTED W/ LIDO 1% W/ EPI WC - Nurse 3 - General Ulcer D/C NN Start: 11/14/23 09:32 Freq: Status: Active Protocol: Activity Type Activity Date Activity User E-sign Co-sign Detail Recorded Client Recorded Date Recorded By Document 11/14/23 10:54 KW Desktop 11/14/23 10:54 KW Document 11/18/23 09:37 BMF Desktop 11/18/23 09:39 BMF Document 11/21/23 09:38 BMF Desktop 11/21/23 09:43 BMF Document 11/25/23 08:29 KW Desktop 11/25/23 08:33 KW Edit Result 11/25/23 08:29 KW (1) Desktop 11/25/23 08:38 KW Document 11/28/23 11:39 DL [id number] 11/28/23 11:41 DL Document 12/04/23 08:24 KW wound center 12/04/23 08:25 KW (1) #1 R Lat Ankle - Ulcer Cleansing => Soap and Water - Primary Dressing Applied => Allevyn Foam 6x6,C => Hydrogel ($) - Primary Dressing Covered/Secured with => Dry Gauze & Roll => Gauze,Secured with => Tape - Allevyn Foam 6x6 => 1 ble - Multi-Layered Wrap Application => Unna Boot - => Bilateral ($) Discharge Condition => Stable Ambulatory Status => Wheelchair Medication Reconcilliation completed & => No provided to patient/care provider Clinical Summary of Care Provided => Yes 11/14/23 11/18/23 11/21/23 10:54 09:37 09:38 Wound Care Center Nurse 3 #1 R Lat Ankle -Ulcer Cleansing Rinsed/ Rinsed/ Irrigated with Irrigated with Saline Saline -Foul Odor after Cleansing No No -Primary Dressing Applied Promogran Promogran AMD Dressing Olivia Matter Olivia Matter 4x4,Collagen Powder ($) -Other Dressing collagen powder ; amd foam drsg -Primary Dressing Covered/Secured with Dry Gauze & Roll Gauze, Secured with Tape -Other Covering w/c legs padded for offloading -Allevyn Foam 6x6 -AMD Dressing 4x4 1 -Promogran Olivia Matter 1 1 ble -Multi-Layered Wrap Application Unna Boot - Unna Boot - Unna Boot - Bilateral ($) Bilateral ($) Bilateral ($) Treatment Response Procedure Procedure Tolerated Well Tolerated Well Vital Signs Temperature (97.8 F-99.1 F) 97.6 F L Temperature Source Temporal Pulse Rate (60-100) 90 Pulse Location Monitor Respiratory Rate (12-18) 16 Respiratory rate source Observation Oxygen Delivery Method Room Air Blood Pressure (90/60-120/80) 147/72 H Blood Pressure Mean (mm Hg) 97 Source Monitor Position Sitting Blood Pressure Location Right Arm Pain Scale: 0-10 Numeric Is Patient Pain Free? Yes No Yes R ANKLE WOUND -Description Sharp,Aching -Intensity 8 -Duration (hours) Chronic -Pain Behavior Withdrawal from Touch,Facial Grimacing -Alleviating Factors/Interventions Turning/ Repositioning, Distraction, Will continue to monitor, Emotional Support WC - Visit Discharge Discharge Condition Stable Stable Stable Ambulatory Status Wheelchair Wheelchair Wheelchair Transportation ecf ecf Medication Reconcilliation completed & No provided to patient/care provider Clinical Summary of Care Provided Yes Facility [facility] Facility Orders Sent 11/25/23 11/28/23 12/04/23 08:29 11:39 08:24 Wound Care Center Nurse 3 #1 R Lat Ankle -Ulcer Cleansing Soap and Water Rinsed/ Soap and Water Irrigated with Saline -Foul Odor after Cleansing -Primary Dressing Applied Allevyn Foam Collagen Powder 6x6,C Hydrogel ($) ($) -Other Dressing Purachol/nugel/ foam -Primary Dressing Covered/Secured with Dry Gauze & Dry Gauze & Dry Gauze & Roll Gauze, Roll Gauze, Roll Gauze, Secured with Secured with Secured with Tape Tape Tape -Other Covering -Allevyn Foam 6x6 1 -AMD Dressing 4x4 -Promogran Olivia Matter ble -Multi-Layered Wrap Application Unna Boot - Unna Boot - Unna Boot - Bilateral ($) Bilateral ($) Bilateral ($) Treatment Response Procedure Tolerated Well Vital Signs Temperature (97.8 F-99.1 F) 96.3 F L Temperature Source Temporal Pulse Rate (60-100) 80 Pulse Location Monitor Respiratory Rate (12-18) 18 Respiratory rate source Observation Oxygen Delivery Method Room Air Blood Pressure (90/60-120/80) 137/68 H Blood Pressure Mean (mm Hg) 91 Source Monitor Position Semi-Fowlers Blood Pressure Location Left Arm Pain Scale: 0-10 Numeric Is Patient Pain Free? Yes Yes Yes R ANKLE WOUND -Description -Intensity -Duration (hours) -Pain Behavior -Alleviating Factors/Interventions WC - Visit Discharge Discharge Condition Stable Stable Stable Ambulatory Status Wheelchair Wheelchair Wheelchair Transportation Private Auto Medication Reconcilliation completed & No No provided to patient/care provider Clinical Summary of Care Provided Yes Yes Facility Type [facility] Orders Sent Yes Assessment/Plan Assessment/Plan (1) 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: CODE(S): L97.312 - Non-pressure chronic ulcer of right ankle with fat layer exposed (2) Diabetes mellitus with diabetic polyneuropathy: CODE(S): E11.42 - Type 2 diabetes mellitus with diabetic polyneuropathy (3) Ankle osteomyelitis, right: CODE(S): M86.9 - Osteomyelitis, unspecified (4) Delayed wound healing: CODE(S): T14.8XXD - Other injury of unspecified body region, subsequent encounter (5) Hyperlipidemia: CODE(S): E78.5 - Hyperlipidemia, unspecified (6) History of tobacco use: CODE(S): Z87.891 - Personal history of nicotine dependence PLAN: Plan Patient seen and evaluated Patient did have radiographs performed 09/26/2023 of the right ankle and foot demonstrating generalized osteopenia, soft tissue swelling, and mild arthritis of the first MTPJ and TNJ. Recent laboratory data demonstrates WBC 9.8, ESR 15, glucose 210. No recent A1c was performed with last A1c of record 03/09/2019 which was 8% at this time. Recommended updating A1c. Wound cultures were obtained 09/26/2023 demonstrating MRSA positive. These cultures do reflect previous past cultures of MRSA positive from August and July 2023. Referral to Dr. Robbins was placed and she did see him on 11/20/23. Patient finished previously prescribed doxycycline 100 mg twice daily for [address] Laughlin. Ulceration was debrided as noted in the clinical panel above. Prior to debridement she was locally anesthetized proximal to the ulcerative site consisting of 10 cc 1% lidocaine with epinephrine with block to the sural nerve and superficial peroneal nerve proximal to ulceration. This is noted to improve patient's tolerance of debridement today. Ulceration to the right lateral ankle measures post-debridement measures 1.5 cm x 1.2 cm x 0.4 cm. No localized signs of infection. Change was made in dressings for improvement of source control which has been achieved with Dakin's wet-to-dry dressing. We have discontinued the Dakin's. Collagen powder and PHMB dressing applied to wound bed and dressed with DSD. She will change daily. Tubigrip compression applied. She had appointment with infectious disease 11/20/23, and oral antibiotics were extended an additional 2 weeks, she is now finished abx. There is noted visual improvement of the wound bed with more healthy granular tissue noted following application of the Dakin's and with continued antibiotics. There is noted improvement in appearance of tissue versus previous visit with improvement in her edema following the increase of her furosemide from 20 mg to 60 mg daily. There is also continued improvement in periwound maceration. With wound bed improved, we have moved to collagen based product as of 11/21/2023. Due to significant amount of pain to palpation about the right lateral ankle and patient underwent MRI 10/11/[address] Laughlin. MRI on 10/11/2023 demonstrating lateral soft tissue swelling with skin thickening. There is focal defect consistent with wound. There is marrow edema of the lateral malleolus and distal fibula, series 7 image 8. Impression: Osteomyelitis of the lateral malleolus of the distal fibula with soft tissue wound and swelling. I have reviewed this MRI series and do note the increased marrow edema of the lateral malleolus and series 7 image 8 but also an image 9. This does appear to be at the outer portion of the cortex of the bone as the remaining images do not demonstrate increased signal. I did discuss these images in detail with the patient today in addition to findings with concern for osteomyelitis. I did discuss possible surgical options with the patient in detail 10/17/2023. All options were discussed with the patient in detail including risks and benefits of each procedure. Discussed risk of BKA with patient today. Patient is understanding of this but would like to save the right lower extremity. Also discussed possible treatment with IV antibiotics and aggressive surgical debridement of the soft tissue. Patient at this time would like to take time to consider options as she is on the oral antibiotic in addition to further discussion with infectious disease. Previous culture results of MRSA positive were reviewed. Due to the patient unable to get into infectious disease I did initiate outpatient oral antibiotic therapy on 10/17/2023. Rx doxycycline 100 mg twice daily x 14 days and Rx levofloxacin 750 mg daily x 14 days. Antibiotic stop date for first round 10/31/2023. This antibiotic regimen was extended due to next infectious disease appointment on 11/20/2023 with stop date of antibiotics 11/18/2023. Following seeing infectious disease he did extend antibiotic an additional 2 weeks. Recommended probiotic use with antibiotic and to take with food. She has finished oral antibiotics as instructed and there is noted improvement in her wound with continued decrease in size and more healthy appearing tissue. Recommended adequate protein intake to aid in wound healing. Solomon supplementation is also recommended. Discussed with patient continue proper diabetic diet to aid in wound healing and provide good glycemic control. Discussed glycemic control and lowering of her blood sugar/A1c is important to aid in wound healing. She was again reminded to continue to wear proper fitting shoe gear and to ensure shoe gear is worn at all times for protection of the foot as she is diabetic with significant diminished sensation secondary to peripheral polyneuropathy. Discussed with patient the need for smoking cessation. Discussed impacts of wound healing from her smoking. Discussed with smoking blood flow is diminished to vital organs and extremities which is essential for her wound healing, in addition to affecting oxygen content/saturation of the bloodstream which is also essential for wound healing. Discussed smoking cessation aids and these were offered. Recommended continued discussion with her primary care physician to aid her in smoking cessation. 5 minutes total was spent on discussion 10/03/23. I discussed signs and symptoms of infection today. Discussed if she notices increasing redness of the skin about the ulcerative site moving up the leg, purulent drainage from the wound site, increasing foul odor from the wound, or if she develops fever greater than 101 degree accompanied by nausea, vomiting, chills that these are signs of a progressing infection and she should report to the ED for IV antibiotics and further evaluation. Patient voices understanding of this. The following work up and care recommendations were made: Dressing: Collagen Powder, Hydrogel, PHMB dressing with, dry sterile dressing to Right ankle. Bilateral unna boot compression. Do not get wet. Wash: Do not get wet Tissue growth optimization: Collagen powder/hydrogel Offload: Padded protective dressing of the lateral ankle. Recommended waffle offloading boot while in bed. Vascular: DP and PT pulses weakly palpable bilateral. Monophasic Doppler to left pedal pulses. Edema: Mild edema noted to the lower extremities. Recommended continued Tubigrip compression with elevation of lower extremities. Infection: Osteomyelitis confirmed of the distal lateral malleolus by MRI 10/11/2023. She does demonstrate positive MRSA cultures and is currently on doxycycline and levofloxacin for 14 days, this was extended (stop date now for 11/18/23). Referral to infectious disease, next appointment 11/20/23. Pain: May take [id number] Tylenol for discomfort Host factors: DM type II with peripheral polyneuropathy, MRSA positive cultures, edema, chronic tobacco abuse. I answered all the patient's questions. To return to the wound healing center in 1 week or call sooner if the patient has any questions or concerns.
[2023-12-12 08:51] VITALS: BP 117/63; PULSE 71; RESP 18; TEMP 36.2
--- NOTE | 2023-12-12 09:06 | PN.PCM_ITS ---
History of Present Illness Date of Service: 12/12/23 Chief Complaint: Non healing right ankle ulcer History of Wound: Ms. Lam is a 63-year-old who was referred to this facility due to nonhealing right lateral ankle ulcer. Noted a year ago, started out as a bullae and subsequently opened up. She states that over the years, she has had alginate and collagen dressings done at her facility without any significant improvement. History of diabetes mellitus, she is not sure of her most recent A1c but states that it has ranged from 8-13. Also history of tobacco use, smokes daily. There is significant pain around the ulcer but she denies otherwise significant leg pain. Does not wear compression. Mostly sedentary but sleeps in the bed. She feels well otherwise, no chills, fever, nausea, vomiting or change in bowel habit reported. Subjective Subjective This is a 63-year-old female who continues to follow to the wound care center for a right lateral ankle ulceration. Patient is assisted by wheelchair today. She reports finishing oral antibiotic. She has kept unna boot clean, dry, and intact. She did return for dressing changes with nursing here at wound center. Edema continues to improve with increase in Lasix. States that they did undergo successful implantation of new pain pump and she will be following with Dr. Ruelas next month. Still states she has some pain in the right leg but the pain pump is not helping at this time and she states new medication will have to be filled on this. She denies constitutional symptoms. Denies further complaints. Objective Data Objective Data Vital Signs: Vital Signs Temp Pulse Resp BP O2 Del Method 97.2 F L 71 18 117/63 Room Air 12/12/23 08:51 12/12/23 08:51 12/12/23 08:51 12/12/23 08:51 11/28/23 08:07 Oxygen Delivery Method Room Air Physical Exam Const alert, oriented x3 and no apparent distress General Appearance: cooperative HEENT normocephalic Eyes General Eye: normal appearance of both eyes Neck General: normal visual inspection Lymph Lymphatic: no lymphadenopathy noted and no lymphedema noted Resp normal respiratory effort Cardio regular rate and regular rhythm Extremity Extremity Narrative: Vascular: DP and PT pulses palpable. Capillary fill time less than 5 seconds to digits. Normal temperature gradient. Hair growth is absent to digits/foot. Neurologic: Light touch sensation diminished. Gross sensation intact. Protective sensation is significantly diminished secondary to diabetic peripheral polyneuropathy. Dermatologic: Skin does appear well-hydrated. Bilateral lower extremity edema R > L, is much improved. Right lateral ankle demonstrates ulceration distal to the lateral malleolus to the level of the subcutaneous tissue with mixed fibrogranular layer and serosanguineous drainage with hyperpigmented rim. There is improvement in periwound maceration noted. Ulceration demonstrates no malodor, no purulent drainage, no localized erythema, no increased temperature, no palpable fluctuance/bogginess, no visible abscess formation. Musculoskeletal: Patient is in wheelchair and does have decreased muscle strength of the lower extremities bilateral. Skin no rashes or lesions noted, skin turgor normal and no jaundice Neuro moves all extremities Debridement Note Debridement Note Wound debrided: Right lateral malleolus Laterality: Right Wound Grade/Stage: Esqueda stage II Type of Debridement: Excisional debridement Anesthesia Used: 5% Lidocaine Gel and - (10 cc 1% lidocaine with epinephrine) Depth: Down to and including healthy tissue and in the subcutaneous layer Percentage of wound debrided: 100 Instrument Used: 5mm curette Tissue Removed: Fibrous, devitalized subcutaneous, biofilm, slough Severity: Fat Layer Exposed Amount of bleeding with debridement: Mild Bleeding Controlled with: Compression and gauze Patient tolerated procedure: Patient tolerated procedure well Post-Debridement Measurements and Additional Note: Post-Debridement Measurements/Treatment WC - Nurse 1 - General Ulcer Assessment Start: 11/14/23 09:32 Freq: Status: Active Protocol: [email or web address] Luisa Activity Type Activity Date Activity User E-sign Co-sign Detail Recorded Client Recorded Date Recorded By Document 11/14/23 09:32 KW Desktop 11/14/23 09:42 KW Document 11/18/23 09:37 BMF Desktop 11/18/23 09:39 BMF Document 11/21/23 08:45 ML Desktop 11/21/23 08:48 ML Document 11/25/23 08:29 KW Desktop 11/25/23 08:33 KW Document 11/28/23 08:07 BMF 10..25.7 11/28/23 08:16 BMF Document 12/04/23 08:24 KW wound center 12/04/23 08:25 KW Document 12/05/23 09:18 DL [id number] 12/05/23 09:30 DL Document 12/12/23 08:51 DL [id number] 12/12/23 08:59 DL 11/14/23 11/18/23 11/21/23 09:32 09:37 08:45 - Today's Visit Information Type of service Follow-up Visit Nurse-only Follow-up Visit (Physician/FORGE HAND Visit (Physician/FORGE HAND ) ) Arrival Mode Wheelchair Wheelchair Wheelchair Transfer Assistance None None Patient Identification Verified (Name & Yes Yes Yes ) Patient Requires Transmission-Based No No Precautions Finger Stick Blood Sugar(mg/dl) (if 110 indicated): Blood Sugar Stated by Patient Vital Signs Temperature (97.8 F-99.1 F) 97.6 F L 96.6 F L Temperature Source Temporal Temporal Pulse Rate (60-100) 83 90 84 Pulse Location Monitor Monitor Monitor Respiratory Rate (12-18) 18 16 15 Respiratory rate source Observation Observation Observation Oxygen Delivery Method Room Air Room Air Blood Pressure (90/60-120/80) 126/53 H 147/72 H 146/72 H Blood Pressure Mean (mm Hg) 77 97 96 Source Monitor Monitor Monitor Position Semi-Fowlers Sitting Blood Pressure Location Left Arm Right Arm History Since Last Visit- (Skip if this is Patient's initial visit) Have you changed medications since your No No No last visit? Any new allergies or adverse reactions No No No Had a fall/change in ADL's that may No No No increase risk of falls Signs or symptoms of abuse and/or No No No neglect since last visit Have you been in the hospital since your No No No last visit? Has dressing in place as prescribed Yes Yes Yes Has compression in place as prescribed Yes Yes Yes Has offloadiing in place as prescribed Yes N/A Experienced any changes in pain level or No No management Left Footwear Slipper No Footwear Right Footwear Slipper No Footwear Other Footwear no socks or shoes Pain Scale: 0-10 Numeric Is Patient Pain Free? Yes No Yes R ANKLE WOUND -Description Sharp,Aching -Intensity 8 -Duration (hours) Chronic -Pain Behavior Withdrawal from Touch,Facial Grimacing -Alleviating Factors/Interventions Turning/ Repositioning, Distraction, Will continue to monitor, Emotional Support 11/25/23 11/28/23 12/04/23 08:29 08:07 08:24 - Today's Visit Information Type of service Nurse-only Follow-up Visit Nurse-only Visit (Physician/FORGE HAND Visit ) Arrival Mode Wheelchair Wheelchair Wheelchair Transfer Assistance None Patient Identification Verified (Name & Yes Yes Yes ) Patient Requires Transmission-Based No Precautions Finger Stick Blood Sugar(mg/dl) (if indicated): Blood Sugar Vital Signs Temperature (97.8 F-99.1 F) 96.3 F L 96 F L Temperature Source Temporal Temporal Pulse Rate (60-100) 80 81 Pulse Location Monitor Monitor Respiratory Rate (12-18) 18 16 Respiratory rate source Observation Observation Oxygen Delivery Method Room Air Room Air Blood Pressure (90/60-120/80) 137/68 H 138/63 H Blood Pressure Mean (mm Hg) 91 88 Source Monitor Monitor Position Semi-Fowlers Sitting Blood Pressure Location Left Arm Right Arm History Since Last Visit- (Skip if this is Patient's initial visit) Have you changed medications since your Yes No No last visit? Any new allergies or adverse reactions No No No Had a fall/change in ADL's that may No No No increase risk of falls Signs or symptoms of abuse and/or No No No neglect since last visit Have you been in the hospital since your No No No last visit? Has dressing in place as prescribed Yes Yes Yes Has compression in place as prescribed Yes Yes Yes Has offloadiing in place as prescribed Yes N/A Yes Experienced any changes in pain level or No No No management Left Footwear Slipper Slipper Slipper Right Footwear Slipper Slipper Slipper Other Footwear Pain Scale: 0-10 Numeric Is Patient Pain Free? Yes Yes Yes R ANKLE WOUND -Description -Intensity -Duration (hours) -Pain Behavior -Alleviating Factors/Interventions 12/05/23 12/12/23 09:18 08:51 [facility] Today's Visit Information Type of service Follow-up Visit Follow-up Visit (Physician/FORGE HAND (Physician/FORGE HAND ) ) Arrival Mode Wheelchair Wheelchair Transfer Assistance None None Patient Identification Verified (Name & Yes Yes ) Patient Requires Transmission-Based No No Precautions Finger Stick Blood Sugar(mg/dl) (if indicated): Blood Sugar Vital Signs Temperature (97.8 F-99.1 F) 97 F L 97.2 F L Temperature Source Temporal Temporal Pulse Rate (60-100) 84 71 Pulse Location Monitor Monitor Respiratory Rate (12-18) 18 18 Respiratory rate source Observation Observation Oxygen Delivery Method Blood Pressure (90/60-120/80) 122/57 H 117/63 Blood Pressure Mean (mm Hg) 78 81 Source Monitor Monitor Position Blood Pressure Location History Since Last Visit- (Skip if this is Patient's initial visit) Have you changed medications since your No No last visit? Any new allergies or adverse reactions No No Had a fall/change in ADL's that may No No increase risk of falls Signs or symptoms of abuse and/or No No neglect since last visit Have you been in the hospital since your No No last visit? Has dressing in place as prescribed Yes Yes Has compression in place as prescribed Yes Yes Has offloadiing in place as prescribed Yes N/A Experienced any changes in pain level or No No management Left Footwear Right Footwear Other Footwear Pain Scale: 0-10 Numeric Is Patient Pain Free? Yes Yes R ANKLE WOUND -Description -Intensity -Duration (hours) -Pain Behavior -Alleviating Factors/Interventions WC - Nurse 1 - General Ulcer Measurement Start: 11/14/23 09:32 Freq: Status: Active Protocol: Activity Type Activity Date Activity User E-sign Co-sign Detail Recorded Client Recorded Date Recorded By Document 11/14/23 09:32 KW Desktop 11/14/23 09:42 KW Document 11/18/23 09:37 BMF Desktop 11/18/23 09:39 BMF Document 11/21/23 08:45 ML Desktop 11/21/23 08:48 ML Document 11/25/23 08:29 KW Desktop 11/25/23 08:33 KW Document 11/28/23 08:07 BMF 10.10.25.7 11/28/23 08:16 BMF Document 12/05/23 09:18 DL [email or web address] 12/05/23 09:30 DL Document 12/12/23 08:51 DL [email or web address] 12/12/23 08:59 DL 11/14/23 11/18/23 11/21/23 09:32 09:37 08:45 Wound Center Nurse 1 #1 R Lat Ankle -Combined with other wound -Current Size (cm) - Length 1.4 1 -Current Size (cm) - Width 0.8 1 -Current Size (cm) - Depth 0.5 1.5 -Total Square Cm 1.12 1 -Date of Last Picture (Recall this 11/14/23 field) -Photo Taken Yes -Epithelialization -Tunneling -Undermining/Tunneling -Circular Undermining -Exudate Amt Small Medium -Exudate Type Serosanguineous Serosanguineous -Wound Margin Distinct, Distinct, Outline Outline Attached Attached -Granulation Amt Large (67-100%) Medium (34-66%) -Granulation Quality Red -Slough/Fibrin Yes -Necrosis Amt Medium (34-66%) -Necrotic Tissue Type Adherent Slough -Structure Exposed -Texture (Lori-wound Skin Appearance) Assessed, No Abnormality Localized Edema -Moisture (Lori-wound Skin Appearance) Maceration No Abnormality -Color (Lori-wound Skin Appearance) Assessed, No Abnormality Erythema -Temperature (Lori-wound Skin No Abnormality Appearance) (Pt Warm) -Tenderness on Palpation (Lori-wound No Yes Skin Appearance) -Ulcer Cleansing Rinsed/ Soap and Water Irrigated with Saline -Foul Odor after Cleansing No No -Anesthetic Used 5% Lidocaine 5% Lidocaine Gel Gel Lower Limb Edema Present Yes Right Calf (cm) 43 43.3 41 Right Ankle (cm) 22 28.4 28.5 Left Calf (cm) 38.6 36 Left Ankle (cm) 26.3 26.5 11/25/23 11/28/23 12/05/23 08:29 08:07 09:18 Wound Center Nurse 1 #1 R Lat Ankle -Combined with other wound No -Current Size (cm) - Length 1.4 1.5 -Current Size (cm) - Width 0.9 1.2 -Current Size (cm) - Depth 0.5 0.5 -Total Square Cm 1.26 1.80 -Date of Last Picture (Recall this 11/28/23 field) -Photo Taken Yes Yes -Epithelialization Small 1-33% -Tunneling No -Undermining/Tunneling No -Circular Undermining No -Exudate Amt Medium Medium -Exudate Type Serosanguineous Serosanguineous -Wound Margin Thickened Thickened -Granulation Amt Large (67-100%) Small (1-33%) -Granulation Quality Red [place] -Slough/Fibrin Yes -Necrosis Amt Small (1-33%) Small (1-33%) -Necrotic Tissue Type Adherent Slough Adherent Slough -Structure Exposed N/A -Texture (Lori-wound Skin Appearance) Assessed, Scarring Localized Edema ,Scarring -Moisture (Lori-wound Skin Appearance) Assessed, Maceration Maceration -Color (Lori-wound Skin Appearance) Assessed No Abnormality -Temperature (Lori-wound Skin No Abnormality No Abnormality Appearance) (Pt Warm) (Pt Warm) -Tenderness on Palpation (Lori-wound Yes Skin Appearance) -Ulcer Cleansing Soap and Water Soap and Water -Foul Odor after Cleansing No No -Anesthetic Used 5% Lidocaine 5% Lidocaine Gel Gel Lower Limb Edema Present Yes Right Calf (cm) 40.5 37.2 37 Right Ankle (cm) 27.7 26.5 26.4 Left Calf (cm) 37.6 36.2 36.8 Left Ankle (cm) 25.7 27.3 24.5 12/12/23 08:51 Wound Center Nurse 1 #1 R Lat Ankle -Combined with other wound -Current Size (cm) - Length 1.4 -Current Size (cm) - Width 1 -Current Size (cm) - Depth 0.5 -Total Square Cm 1.4 -Date of Last Picture (Recall this field) -Photo Taken -Epithelialization -Tunneling -Undermining/Tunneling -Circular Undermining -Exudate Amt Small -Exudate Type Serosanguineous -Wound Margin Distinct, Outline Attached -Granulation Amt -Granulation Quality -Slough/Fibrin -Necrosis Amt None Present (0 %) -Necrotic Tissue Type -Structure Exposed N/A -Texture (Lori-wound Skin Appearance) Scarring -Moisture (Lori-wound Skin Appearance) Maceration -Color (Lori-wound Skin Appearance) Hemosiderin Staining -Temperature (Lori-wound Skin No Abnormality Appearance) (Pt Warm) -Tenderness on Palpation (Lori-wound No Skin Appearance) -Ulcer Cleansing Soap and Water -Foul Odor after Cleansing No -Anesthetic Used 5% Lidocaine Gel Lower Limb Edema Present Right Calf (cm) 36.5 Right Ankle (cm) 25.6 Left Calf (cm) Left Ankle (cm) WC - Nurse 2 - General Ulcer CM Notes Start: 11/14/23 09:32 Freq: Status: Active Protocol: Activity Type Activity Date Activity User E-sign Co-sign Detail Recorded Client Recorded Date Recorded By Document 11/14/23 09:45 BMF Desktop 11/14/23 10:22 [facility] Document 11/21/23 08:59 Desktop 11/21/23 09:20 Document 11/28/23 08:58 [facility] [email or web address] 11/28/23 09:13 [facility] Document 12/05/23 09:42 [facility] [id number] 12/05/23 09:51 [facility] 11/14/23 11/21/23 11/28/23 09:45 08:59 08:58 Wound Center Nurse 2 #1 R Lat Ankle -Time 10:06 09:02 08:58 -Correct Patient Yes Yes Yes -Correct Side, Site, Position Yes Yes Yes -Correct Procedure Yes Yes Yes -Procedure Performed Yes Yes Yes -Type of Procedure Debridement Debridement Debridement -Clinical Debridement Subcutaneous Subcutaneous -Tissue Removed Subcutaneous Subcutaneous Subcutaneous -Post Debridement (cm) - Length 1.5 1.3 1.4 -Post Debridement (cm) - Width 1.2 0.8 1.2 -Post Debridement (cm) - Depth 0.5 0.5 0.5 -Total Square (Post) (cm) 1.80 1.04 1.68 -Area of Debridement (cm) - Length 1.5 1.3 1.4 -Area of Debridement (cm) - Width 1.2 0.8 1.2 -Total Square (Area) (cm) 1.80 1.04 1.68 -Tunneling No No No -Undermining/Tunneling No No No -Circular Undermining No No No -Wound/Ulcer Outcome Not Healed Not Healed Not Healed -Ulcer Cleansing Rinsed/ Rinsed/ Rinsed/ Irrigated with Irrigated with Irrigated with Saline Saline Saline -Foul Odor after Cleansing No No No -Bioengineered Tissue No No No -Injectable Lidocaine w/ Epi (%) 10 1 -Injectable Lidocaine w/ Epi (mls) 10 -Bleeding Controlled with Pressure Pressure Pressure -Treatment Response Procedure Procedure Procedure Tolerated Well Tolerated Well Tolerated Well -Offloading No -Debridement - Subq, 1st 20sq cm Yes Yes Yes Pain Scale: 0-10 Numeric Is Patient Pain Free? No Yes No R ANKLE WOUND -Description Sharp Sharp,Aching -Intensity 5 8 -Duration (hours) Chronic Chronic -Pain Behavior Facial Facial Grimacing Grimacing -Pain Aggravating Factors Sitting, Debridement -Alleviating Factors/Interventions Will continue Medication, to monitor, Distraction, Emotional Will continue Support to monitor, Emotional Support -Comments INJECTABLE LIDO injectable ADMINISTERED lidocaine PER DR DOWNEY 12/05/23 09:42 Wound Center Nurse 2 #1 R Lat Ankle -Time 09:43 -Correct Patient Yes -Correct Side, Site, Position Yes -Correct Procedure Yes -Procedure Performed Yes -Type of Procedure Debridement -Clinical Debridement Subcutaneous -Tissue Removed Subcutaneous -Post Debridement (cm) - Length 1.5 -Post Debridement (cm) - Width 1.2 -Post Debridement (cm) - Depth 0.4 -Total Square (Post) (cm) 1.80 -Area of Debridement (cm) - Length 1.5 -Area of Debridement (cm) - Width 1.2 -Total Square (Area) (cm) 1.80 -Tunneling No -Undermining/Tunneling No -Circular Undermining No -Wound/Ulcer Outcome Not Healed -Ulcer Cleansing Rinsed/ Irrigated with Saline -Foul Odor after Cleansing No -Bioengineered Tissue No -Injectable Lidocaine w/ Epi (%) 1 -Injectable Lidocaine w/ Epi (mls) 10 -Bleeding Controlled with Pressure -Treatment Response Procedure Tolerated Well -Offloading -Debridement - Subq, 1st 20sq cm Yes Pain Scale: 0-10 Numeric Is Patient Pain Free? No R ANKLE WOUND -Description Sharp -Intensity 6 -Duration (hours) Chronic -Pain Behavior Facial Grimacing -Pain Aggravating Factors -Alleviating Factors/Interventions Medication, Distraction, Will continue to monitor, Emotional Support -Comments INJECTED W/ LIDO 1% W/ EPI WC - Nurse 3 - General Ulcer D/C NN Start: 11/14/23 09:32 Freq: Status: Active Protocol: Activity Type Activity Date Activity User E-sign Co-sign Detail Recorded Client Recorded Date Recorded By Document 11/14/23 10:54 KW Desktop 11/14/23 10:54 KW Document 11/18/23 09:37 [facility] Desktop 11/18/23 09:39 BMF Document 11/21/23 09:38 [facility] Desktop 11/21/23 09:43 [facility] Document 11/25/23 08:29 KW Desktop 11/25/23 08:33 KW Edit Result 11/25/23 08:29 KW (1) Desktop 11/25/23 08:38 KW Document 11/28/23 11:39 DL [id number] 11/28/23 11:41 DL Document 12/04/23 08:24 KW wound center 12/04/23 08:25 KW Document 12/05/23 12:22 DL [email or web address] 12/05/23 12:25 DL Edit Result 12/05/23 12:22 DL (2) [id number] 12/05/23 16:07 DL (1) #1 R Lat Ankle - Ulcer Cleansing => Soap and Water - Primary Dressing Applied => Allevyn Foam 6x6,C => Hydrogel ($) - Primary Dressing Covered/Secured with => Dry Gauze & Roll => Gauze,Secured with => Tape - Allevyn Foam 6x6 => 1 ble - Multi-Layered Wrap Application => Unna Boot - => Bilateral ($) Discharge Condition => Stable Ambulatory Status => Wheelchair Medication Reconcilliation completed & => No provided to patient/care provider Clinical Summary of Care Provided => Yes (2) Notes: => Pt stuck in bathroom between door and wall. Lrg hole made in wall with WCs foot pedals. Pt freed from position no damage to WC, no complaints from pt . Maintanence aware of damagel to wall. 11/14/23 11/18/23 11/21/23 10:54 09:37 09:38 Wound Care Center Nurse 3 #1 R Lat Ankle -Ulcer Cleansing Rinsed/ Rinsed/ Irrigated with Irrigated with Saline Saline -Foul Odor after Cleansing No No -Primary Dressing Applied Promogran Promogran AMD Dressing Olivia Matter Olivia Matter 4x4,Collagen Powder ($) -Other Dressing collagen powder ; amd foam drsg -Primary Dressing Covered/Secured with Dry Gauze & Roll Gauze, Secured with Tape -Other Covering w/c legs padded for offloading -Allevyn Foam 6x6 -AMD Dressing 4x4 1 -Promogran Olivia Matter 1 1 ble -Multi-Layered Wrap Application Unna Boot - Unna Boot - Unna Boot - Bilateral ($) Bilateral ($) Bilateral ($) -Tubular Bandage -Size of Tubigrip Used -Size E ($) Treatment Response Procedure Procedure Tolerated Well Tolerated Well Vital Signs Temperature (97.8 F-99.1 F) 97.6 F L Temperature Source Temporal Pulse Rate (60-100) 90 Pulse Location Monitor Respiratory Rate (12-18) 16 Respiratory rate source Observation Oxygen Delivery Method Room Air Blood Pressure (90/60-120/80) 147/72 H Blood Pressure Mean (mm Hg) 97 Source Monitor Position Sitting Blood Pressure Location Right Arm Pain Scale: 0-10 Numeric Is Patient Pain Free? Yes No Yes R ANKLE WOUND -Description Sharp,Aching -Intensity 8 -Duration (hours) Chronic -Pain Behavior Withdrawal from Touch,Facial Grimacing -Alleviating Factors/Interventions Turning/ Repositioning, Distraction, Will continue to monitor, Emotional Support WC - Visit Discharge Discharge Condition Stable Stable Stable Ambulatory Status Wheelchair Wheelchair Wheelchair Transportation ecf ecf Medication Reconcilliation completed & No provided to patient/care provider Clinical Summary of Care Provided Yes Notes: Facility Type Processing Clerk Care Processing Clerk Care Facility Facility Orders Sent 11/25/23 11/28/23 12/04/23 08:29 11:39 08:24 Wound Care Center Nurse 3 #1 R Lat Ankle -Ulcer Cleansing Soap and Water Rinsed/ Soap and Water Irrigated with Saline -Foul Odor after Cleansing -Primary Dressing Applied Allevyn Foam Collagen Powder 6x6,C Hydrogel ($) ($) -Other Dressing Purachol/nugel/ foam -Primary Dressing Covered/Secured with Dry Gauze & Dry Gauze & Dry Gauze & Roll Gauze, Roll Gauze, Roll Gauze, Secured with Secured with Secured with Tape Tape Tape -Other Covering -Allevyn Foam 6x6 1 -AMD Dressing 4x4 -Promogran Olivia Matter ble -Multi-Layered Wrap Application Unna Boot - Unna Boot - Unna Boot - Bilateral ($) Bilateral ($) Bilateral ($) -Tubular Bandage -Size of Tubigrip Used -Size E ($) Treatment Response Procedure Tolerated Well Vital Signs Temperature (97.8 F-99.1 F) 96.3 F L Temperature Source Temporal Pulse Rate (60-100) 80 Pulse Location Monitor Respiratory Rate (12-18) 18 Respiratory rate source Observation Oxygen Delivery Method Room Air Blood Pressure (90/60-120/80) 137/68 H Blood Pressure Mean (mm Hg) 91 Source Monitor Position Semi-Fowlers Blood Pressure Location Left Arm Pain Scale: 0-10 Numeric Is Patient Pain Free? Yes Yes Yes R ANKLE WOUND -Description -Intensity -Duration (hours) -Pain Behavior -Alleviating Factors/Interventions WC - Visit Discharge Discharge Condition Stable Stable Stable Ambulatory Status Wheelchair Wheelchair Wheelchair Transportation Private Auto Medication Reconcilliation completed & No No provided to patient/care provider Clinical Summary of Care Provided Yes Yes Notes: Facility Type Processing Clerk Care Facility Orders Sent Yes 12/05/23 12:22 Wound Care Center Nurse 3 #1 R Lat Ankle -Ulcer Cleansing Rinsed/ Irrigated with Saline -Foul Odor after Cleansing No -Primary Dressing Applied -Other Dressing purachol/nugel -Primary Dressing Covered/Secured with Dry Gauze & Roll Gauze, Secured with Tape -Other Covering foam pad -Allevyn Foam 6x6 -AMD Dressing 4x4 -Promogran Olivia Matter ble -Multi-Layered Wrap Application -Tubular Bandage Single Layer -Size of Tubigrip Used Size E -Size E ($) 1 Treatment Response Procedure Tolerated Well Vital Signs Temperature (97.8 F-99.1 F) Temperature Source Pulse Rate (60-100) Pulse Location Respiratory Rate (12-18) Respiratory rate source Oxygen Delivery Method Blood Pressure (90/60-120/80) Blood Pressure Mean (mm Hg) Source Position Blood Pressure Location Pain Scale: 0-10 Numeric Is Patient Pain Free? Yes R ANKLE WOUND -Description -Intensity -Duration (hours) -Pain Behavior -Alleviating Factors/Interventions WC - Visit Discharge Discharge Condition Stable Ambulatory Status Wheelchair Transportation ECF trans Medication Reconcilliation completed & provided to patient/care provider Clinical Summary of Care Provided Notes: Pt stuck in bathroom between door and wall. Lrg hole made in wall with WCs foot pedals. Pt freed from position no damage to WC, no complaints from pt . Maintanence aware of damagel to wall . 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: CODE(S): L97.312 - Non-pressure chronic ulcer of right ankle with fat layer exposed (2) Diabetes mellitus with diabetic polyneuropathy: CODE(S): E11.42 - Type 2 diabetes mellitus with diabetic polyneuropathy (3) Ankle osteomyelitis, right: CODE(S): M86.9 - Osteomyelitis, unspecified (4) Delayed wound healing: CODE(S): T14.8XXD - Other injury of unspecified body region, subsequent encounter (5) Hyperlipidemia: CODE(S): E78.5 - Hyperlipidemia, unspecified (6) History of tobacco use: CODE(S): Z87.891 - Personal history of nicotine dependence PLAN: Plan Patient seen and evaluated Patient did have radiographs performed 09/26/2023 of the right ankle and foot demonstrating generalized osteopenia, soft tissue swelling, and mild arthritis of the first MTPJ and TNJ. Recent laboratory data demonstrates WBC 9.8, ESR 15, glucose 210. No recent A1c was performed with last A1c of record 03/09/2019 which was 8% at this time. Recommended updating A1c. Wound cultures were obtained 09/26/2023 demonstrating MRSA positive. These cultures do reflect previous past cultures of MRSA positive from August and July 2023. Referral to Dr. Robbins was placed and she did see him on 11/20/23. Patient finished previously prescribed doxycycline 100 mg twice daily for [address] Laughlin. Ulceration was debrided as noted in the clinical panel above. Prior to debridement she was locally anesthetized proximal to the ulcerative site consisting of 10 cc 1% lidocaine with epinephrine with block to the sural nerve and superficial peroneal nerve proximal to ulceration. This is noted to improve patient's tolerance of debridement today. Ulceration to the right lateral ankle measures post-debridement measures 1.5 cm x 1.2 cm x 0.3 cm. No localized signs of infection. Change was made in dressings for improvement of source control which has been achieved with Dakin's wet-to-dry dressing. We have previously discontinued the Dakin's. Collagen powder and PHMB dressing applied to wound bed and dressed with DSD. She will change daily. Tubigrip compression applied left lower extremity, 3M compression applied to right lower extremity. She had appointment with infectious disease 11/20/23 and oral abx has been completed. There is noted visual improvement of the wound bed with more healthy granular tissue noted following application of the Dakin's and with continued antibiotics. There is noted improvement in appearance of tissue versus previous visit with improvement in her edema following the increase of her furosemide from 20 mg to 60 mg daily. There is also continued improvement in periwound maceration. Due to continued pain in the right lower extremity and needing pain pump medicine refilled I did issue short-term oral narcotic prescription today, 12/12/2023. Discussed with her that additional medication needs to come from pain management. She is understanding of this. [place]AR[place] report was run on her prior to issuing prescription. Rx oxycodone acetaminophen 5/325mg number 28 tablets x 7 days. Instructed to take 1 every 8 hours for her pain. With wound bed improved, we have moved to collagen based product as of 11/21/2023. Due to significant amount of pain to palpation about the right lateral ankle and patient underwent MRI 10/11/[address] Laughlin. MRI on 10/11/2023 demonstrating lateral soft tissue swelling with skin thickening. There is focal defect consistent with wound. There is marrow edema of the lateral malleolus and distal fibula, series 7 image 8. Impression: Osteomyelitis of the lateral malleolus of the distal fibula with soft tissue wound and swelling. I have reviewed this MRI series and do note the increased marrow edema of the lateral malleolus and series 7 image 8 but also an image 9. This does appear to be at the outer portion of the cortex of the bone as the remaining images do not demonstrate increased signal. I did discuss these images in detail with the patient today in addition to findings with concern for osteomyelitis. I did discuss possible surgical options with the patient in detail 10/17/2023. All options were discussed with the patient in detail including risks and benefits of each procedure. Discussed risk of BKA with patient today. Patient is understanding of this but would like to save the right lower extremity. Also discussed possible treatment with IV antibiotics and aggressive surgical debridement of the soft tissue. Patient at this time would like to take time to consider options as she is on the oral antibiotic in addition to further discussion with infectious disease. Previous culture results of MRSA positive were reviewed. Due to the patient unable to get into infectious disease I did initiate outpatient oral antibiotic therapy on 10/17/2023. Rx doxycycline 100 mg twice daily x 14 days and Rx levofloxacin 750 mg daily x 14 days. Antibiotic stop date for first round 10/31/2023. This antibiotic regimen was extended due to next infectious disease appointment on 11/20/2023 with stop date of antibiotics 11/18/2023. Following seeing infectious disease he did extend antibiotic an additional 2 weeks. Recommended probiotic use with antibiotic and to take with food. She has finished oral antibiotics as instructed and there is noted improvement in her wound with continued decrease in size and more healthy appearing tissue. Recommended adequate protein intake to aid in wound healing. Solomon supplementation is also recommended. Discussed with patient continue proper diabetic diet to aid in wound healing and provide good glycemic control. Discussed glycemic control and lowering of her blood sugar/A1c is important to aid in wound healing. She was again reminded to continue to wear proper fitting shoe gear and to ensure shoe gear is worn at all times for protection of the foot as she is diabetic with significant diminished sensation secondary to peripheral polyneuro mary. Discussed with patient the need for smoking cessation. Discussed impacts of wound healing from her smoking. Discussed with smoking blood flow is diminished to vital organs and extremities which is essential for her wound healing, in addition to affecting oxygen content/saturation of the bloodstream which is also essential for wound healing. Discussed smoking cessation aids and these were offered. Recommended continued discussion with her primary care physician to aid her in smoking cessation. 5 minutes total was spent on discussion 10/03/23. I discussed signs and symptoms of infection today. Discussed if she notices increasing redness of the skin about the ulcerative site moving up the leg, purulent drainage from the wound site, increasing foul odor from the wound, or if she develops fever greater than 101 degree accompanied by nausea, vomiting, chills that these are signs of a progressing infection and she should report to the ED for IV antibiotics and further evaluation. Patient voices understanding of this. The following work up and care recommendations were made: Dressing: Collagen Powder, Hydrogel, PHMB dressing with, dry sterile dressing to Right ankle. Bilateral unna boot compression. Do not get wet. Wash: Do not get wet Tissue growth optimization: Collagen powder/hydrogel Offload: Padded protective dressing of the lateral ankle. Recommended waffle offloading boot while in bed. Vascular: DP and PT pulses weakly palpable bilateral. Monophasic Doppler to left pedal pulses. Edema: Mild edema noted to the lower extremities. Recommended continued Tubigr ip compression with elevation of lower extremities. Infection: Osteomyelitis confirmed of the distal lateral malleolus by MRI 10/11/2023. She does demonstrate positive MRSA cultures and finished doxycycline and levofloxacin. She has followed with infectious disease. Pain: May take [id number] Tylenol for discomfort Host factors: DM type II with peripheral polyneuropathy, MRSA positive cultures, edema, chronic tobacco abuse. She will return 12/16/2023 for change of her 3M compression to the right lower extremity with nursing team. I answered all the patient's questions. To return to the wound healing center in 1 week or call sooner if the patient has any questions or concerns.
== END 2023-12-13 23:59 | disposition home or self-care (01) ==
LOC: WC 08:45
PROVIDERS: PCP Internal Medicine; Referring Provider Internal Medicine; Visit Provider Student in an Organized Health Care Education/Training Program
DX: L97.312 Non-pressure chronic ulcer of right ankle with fat layer exposed (principal); M86.9 Osteomyelitis, unspecified; E11.42 Type 2 diabetes mellitus with diabetic polyneuropathy; R60.0 Localized edema; M79.674 Pain in right toe(s); Z87.891 Personal history of nicotine dependence; G89.29 Other chronic pain; E78.5 Hyperlipidemia, unspecified; T14.8XXD Other injury of unspecified body region, subsequent encounter; L60.3 Nail dystrophy; Z86.14 Personal history of Methicillin resistant Staphylococcus aureus infection
CPT/HCPCS: 11042; 29580

== ENCOUNTER 2024-01-02 08:30 | Outpatient (RCR) | payer MEDICARE, MEDICAID, SELFPAY ==
[2023-12-14 01:41] VITALS: BP 111/47
[2023-12-14 01:42] VITALS: PULSE 67; RESP 18; TEMP 36.4
--- NOTE | 2023-12-19 08:30 | WC ---
Called and spoke w/ [facility] DON yesterday 12/18/23 regarding possible initiation of HBO therapy. Per Be[facility] they are agreeable to starting the process and will be able to provide daily transportation for pt if insurance approves.
[2023-12-19 09:16] VITALS: BP 106/61; PULSE 81; RESP 18; TEMP 35.9
--- NOTE | 2023-12-19 11:05 | RAD_ITS ---
EXAM: XR CHEST, 2 VIEWS CLINICAL INDICATION: HYPERBARIX OXYGEN TREATMENTS TECHNIQUE: Frontal and lateral views of the chest. COMPARISON: 11/24/2023 FINDINGS: LUNGS AND PLEURAL SPACES: There is a small right basilar opacity. No pneumothorax. No effusion. HEART: Unremarkable. Cardiac silhouette not enlarged. MEDIASTINUM: Central airways and mediastinal contour are unremarkable. BONES/JOINTS: Unremarkable. No acute fracture. SOFT TISSUES: Unremarkable. RAD/Chest PA and Lateral IMPRESSION: Minimal right basilar opacity which may represent early right lower lobe pneumonia. Electronically Signed: Conor Walters MD at 18:17 EDT ,
[2023-12-19 12:46] LABS: Erythrocyte Sedimentation Rate 7 mm/hr (0-30)
[2023-12-19 12:50] LABS: Absolute Lymphocyte Count 2.17 X10^3/uL (0.83-4.51); Basophil# 0.07 X10^3/uL; Basophil% 0.6 % (0-1); Eosinophil# 0.07 X10^3/uL; Eosinophils% 0.6 % (0-5); Hematocrit 43.4 % (37-47); Hemoglobin 13.7 g/dL (12.0-15.0); Lymphocyte # 2.17 X10^3/ul (0.83-4.51); Lymphocyte % 18.9 % (19-41); Mean Corp Hgb Conc 31.6 g/dL (32-36); Mean Corpuscular Hgb 28.8 pg (27.0-32.0); Mean Corpuscular Volume 91.4 fL (81-99); Mean Platelet Vol. 10.8 fl (6.2-12.0); Monocyte# 0.99 X10^3/uL; Monocyte% 8.6 % (0-10); NRBC Flagged by Analyzer 0 % (0-5); Neutrophil # 8.02 X10^3/uL (2.7-7.7); Neutrophil % 69.9 % (47-70); Platelet Count 248 K/mm3 (150-450); RBC Distribution Width CV 14.9 % (11.6-14.6); RBC Distribution Width SD 50.2 fl (35.1-43.9); Red Blood Count 4.75 M/mm3 (4.2-5.4); White Blood Count 11.5 K/mm3 (4.4-11.0)
[2023-12-19 13:12] LABS: AST(SGOT) 22 U/L (15-37); Alanine Aminotransfer ALT/SGPT 57 U/L (13-56); Albumin, Serum 3.4 g/dL (3.2-5.0); Alkaline Phosphatase 87 U/L (45-117); Anion Gap 7 (5-15); BUN 21 mg/dL (7-18); BUN/Creat Ratio 17.8 RATIO (10-20); CRP 4.72 mg/L (0.0-3.0); Chloride 97 mmol/L (98-107); Creatinine, Serum 1.18 mg/dL (0.55-1.02); EST Glomerular Filtration Rate 49 mL/min (>60); Est Glom Filt Rate - Afr Amer 60 mL/min (>60); Globulin 3.5 g/dL (2.2-4.2); Glucose 317 mg/dL (74-106); Potassium 4.2 mmol/L (3.5-5.1); Protein, Total 6.9 g/dL (6.4-8.2); Sodium Level 134 mmol/L (136-145)
[2023-12-19 17:05] LABS: Hemoglobin A1c 7.8 % (3.8-5.6)
--- NOTE | 2023-12-19 18:59 | PN.PCM_ITS ---
History of Present Illness Date of Service: 12/19/23 Chief Complaint: Non healing right ankle ulcer History of Wound: Ms. Lam is a 63-year-old who was referred to this facility due to nonhealing right lateral ankle ulcer. Noted a year ago, started out as a bullae and subsequently opened up. She states that over the years, she has had alginate and collagen dressings done at her facility without any significant improvement. History of diabetes mellitus, she is not sure of her most recent A1c but states that it has ranged from 8-13. Also history of tobacco use, smokes daily. There is significant pain around the ulcer but she denies otherwise significant leg pain. Does not wear compression. Mostly sedentary but sleeps in the bed. She feels well otherwise, no chills, fever, nausea, vomiting or change in bowel habit reported. Subjective Subjective This is a 63-year-old female who continues to follow to the wound care center for a right lateral ankle ulceration. Patient is assisted by wheelchair today. She reports finishing oral antibiotic from infectious disease. 3M wrap in place to right leg. She did return for dressing changes with nursing here at wound center. Edema continues to improve with increase in Lasix and 3M compression wrap. States she will be getting the necessary lab work done for clearance for HBO therapy. She denies constitutional symptoms. Denies further complaints. Objective Data Objective Data Vital Signs: Vital Signs Temp Pulse Resp BP 96.6 F L 81 18 106/61 12/19/23 09:16 12/19/23 09:16 12/19/23 09:16 12/19/23 09:16 Lab / Micro Data 12/19/23 11:18 12/19/23 11:18 Labs: Laboratory Results - last 24 hr 12/19/23 11:18: WBC 11.5 H, RBC 4.75, Hgb 13.7, Hct 43.4, MCV 91.4, MCH 28.8, M CHC 31.6 L, RDW Std Deviation 50.2 H, RDW Coeff of Gael 14.9 H, Plt Count 248, MPV 10.8, Immature Gran % (Auto) 1.400 H, Neut % (Auto) 69.9, Lymph % (Auto) 18.9 L, [place] % (Auto) 8.6, Eos % (Auto) 0.6, Baso % (Auto) 0.6, Absolute Neuts (auto) 8.0 H, Absolute Lymphs (auto) 2.17, Nucleated RBC % 0, ESR 7, Sodium 134 L, Potassium 4.2, Chloride 97 L, Carbon Dioxide 30.0, Anion Gap 7, BUN 21 H, C reatinine 1.18 H, Est GFR (MDRD) Af Amer 60, Est GFR (MDRD) Non-Af 49 L, BUN/Creatinine Ratio 17.8, Glucose 317 H, Hemoglobin A1c 7.8 H, Calcium 9.0, Total Bilirubin 0.40, AST 22, ALT 57 H, Alkaline Phosphatase 87, C-React Prot Ext Range 4.72 H, Total Protein 6.9, Albumin 3.4, Globulin 3.5, Albumin/Globulin Ratio 1.0 Radiography Diagnostic Testing: Radiology Impression Chest X-Ray 12/19/23 11:05 IMPRESSION: Minimal right basilar opacity which may represent early right lower lobe pneumonia. Electronically Signed: Conor Walters MD at 18:17 EDT , Physical Exam Const alert, oriented x3 and no apparent distress General Appearance: cooperative HEENT normocephalic Eyes General Eye: normal appearance of both eyes Neck General: normal visual inspection Lymph Lymphatic: no lymphadenopathy noted and no lymphedema noted Resp normal respiratory effort Cardio regular rate and regular rhythm Extremity normal capillary refill, no calf tenderness and no pedal edema Extremity Narrative: Vascular: DP and PT pulses palpable. Capillary fill time less than 5 seconds to digits. Normal temperature gradient. Hair growth is absent to digits/foot. Neurologic: Light touch sensation diminished. Gross sensation intact. Protective sensation is significantly diminished secondary to diabetic peripheral polyneuropathy. Dermatologic: Skin does appear well-hydrated. Bilateral lower extremity edema R > L, is much improved. Right lateral ankle demonstrates ulceration distal to the lateral malleolus to the level of the subcutaneous tissue with mixed fibrogranular layer and serosanguineous drainage with hyperpigmented rim. There is improvement in periwound maceration noted and granulation of the ulcer site. Ulceration demonstrates no malodor, no purulent drainage, no localized erythema, no increased temperature, no palpable fluctuance/bogginess, no visible abscess formation. Musculoskeletal: Patient is in wheelchair and does have decreased muscle strength of the lower extremities bilateral. Skin no rashes or lesions noted, skin turgor normal and no jaundice Neuro moves all extremities Debridement Note Debridement Note Wound debrided: Right lateral ankle Laterality: Right Wound Grade/Stage: Esqueda stage III Type of Debridement: Excisional debridement Anesthesia Used: 5% Lidocaine Gel and - (10 cc 1% lidocaine with epinephrine) Depth: Down to and including healthy tissue and in the subcutaneous layer Percentage of wound debrided: 100 Instrument Used: 5mm curette Tissue Removed: Fibrous, devitalized subcutaneous, biofilm, slough Severity: Fat Layer Exposed Amount of bleeding with debridement: Mild Bleeding Controlled with: Compression and gauze Patient tolerated procedure: Patient tolerated procedure well Post-Debridement Measurements and Additional Note: Post-Debridement Measurements/Treatment - Nurse 1 - General Ulcer Assessment Start: 12/19/23 09:16 Freq: Status: Active Protocol: CLOVIS Activity Type Activity Date Activity User E-sign Co-sign Detail Recorded Client Recorded Date Recorded By Document 12/19/23 09:16 RB wound center 12/19/23 09:19 RB 12/19/23 09:16 - Today's Visit Information Type of service Follow-up Visit (Physician/[employer] IN[employer]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 ) Arrival Mode Wheelchair Transfer Assistance None Patient Identification Verified (Name & Yes ) Patient Requires Transmission-Based No Precautions Finger Stick Blood Sugar(mg/dl) (if 159 indicated): Blood Sugar Stated by Patient Vital Signs Temperature (97.8 F-99.1 F) 96.6 F L Temperature Source Temporal Pulse Rate (60-100) 81 Pulse Location Monitor Respiratory Rate (12-18) 18 Respiratory rate source Observation Blood Pressure (90/60-120/80) 106/61 Blood Pressure Mean (mm Hg) 76 Source Monitor Position Semi-Fowlers Blood Pressure Location Left Arm History Since Last Visit- (Skip if this is Patient's initial visit) Have you changed medications since your Yes last visit? Any new allergies or adverse reactions No Had a fall/change in ADL's that may No increase risk of falls Signs or symptoms of abuse and/or No neglect since last visit Have you been in the hospital since your No last visit? Has dressing in place as prescribed Yes Has compression in place as prescribed Yes Has offloadiing in place as prescribed No Experienced any changes in pain level or No management Pain Scale: 0-10 Numeric Is Patient Pain Free? No R ANKLE WOUND -Description Aching -Intensity 7 -Duration (hours) Acute -Pain Behavior Irritability -Pain Aggravating Factors Debridement -Alleviating Factors/Interventions Medication -Effectiveness of Alleviating Factor/ Moderately Intervention effective WC - Nurse 1 - General Ulcer Measurement Start: 12/19/23 09:16 Freq: Status: Active Protocol: Activity Type Activity Date Activity User E-sign Co-sign Detail Recorded Client Recorded Date Recorded By Document 12/19/23 09:16 RB wound center 12/19/23 09:19 RB 12/19/23 09:16 Wound Center Nurse 1 #1 R Lat Ankle -Combined with other wound No -Current Size (cm) - Length 1.2 -Current Size (cm) - Width 1 -Current Size (cm) - Depth 0.3 -Total Square Cm 1.2 -Photo Taken Yes -Tunneling No -Undermining/Tunneling No -Circular Undermining No -Exudate Amt Medium -Exudate Type Serosanguineous -Wound Margin Thickened & Rolled Under -Granulation Amt Medium (34-66%) -Granulation Quality [place] -Slough/Fibrin Yes -Necrosis Amt Medium (34-66%) -Necrotic Tissue Type Adherent Slough -Structure Exposed N/A -Texture (Lori-wound Skin Appearance) Assessed -Moisture (Lori-wound Skin Appearance) Assessed -Color (Lori-wound Skin Appearance) Hemosiderin Staining -Temperature (Lori-wound Skin No Abnormality Appearance) (Pt Warm) -Tenderness on Palpation (Lori-wound No Skin Appearance) -Ulcer Cleansing Wound Cleanser -Foul Odor after Cleansing No -Anesthetic Used 5% Lidocaine Gel Lower Limb Edema Present Yes Right Calf (cm) 37 Right Ankle (cm) 23.7 Left Calf (cm) 37 Left Ankle (cm) 24 WC - Nurse 2 - General Ulcer CM Notes Start: 12/19/23 09:16 Freq: Status: Active Protocol: Activity Type Activity Date Activity User E-sign Co-sign Detail Recorded Client Recorded Date Recorded By Document 12/19/23 10:06 [facility] 12/19/23 10:16 [facility] 12/19/23 10:06 Wound Center Nurse 2 #1 R Lat Ankle -Time 10:06 -Correct Patient Yes -Correct Side, Site, Position Yes -Correct Procedure Yes -Procedure Performed Yes -Type of Procedure Debridement -Clinical Debridement Subcutaneous -Tissue Removed Subcutaneous -Post Debridement (cm) - Length 1.8 -Post Debridement (cm) - Width 0.9 -Post Debridement (cm) - Depth 0.2 -Total Square (Post) (cm) 1.62 -Area of Debridement (cm) - Length 1.8 -Area of Debridement (cm) - Width 0.9 -Total Square (Area) (cm) 1.62 -Tunneling No -Undermining/Tunneling No -Circular Undermining No -Wound/Ulcer Outcome Not Healed -Ulcer Cleansing Rinsed/ Irrigated with Saline -Foul Odor after Cleansing No -Bioengineered Tissue No -Injectable Lidocaine (%) 1 -Lidocaine (ml) 10 -Bleeding Controlled with Pressure -Treatment Response Procedure Tolerated Well -Debridement - Subq, 1st 20sq cm Yes Pain Scale: 0-10 Numeric Is Patient Pain Free? No R ANKLE WOUND -Description Sharp,Throbbing ,Aching -Intensity 8 -Duration (hours) Chronic -Alleviating Factors/Interventions Medication -Comments USED INJECTABLE LIDO W/ EPI - Nurse 3 - General Ulcer D/C NN Start: 12/19/23 09:16 Freq: Status: Active Protocol: Activity Type Activity Date Activity User E-sign Co-sign Detail Recorded Client Recorded Date Recorded By Document 12/19/23 15:44 DL [id number] 12/19/23 15:45 DL 12/19/23 15:44 Wound Care Center Nurse 3 #1 R Lat Ankle -Foul Odor after Cleansing No -Primary Dressing Applied AMD Dressing 4x4 -Other Dressing NUGEL/PURACHOL -AMD Dressing 4x4 1 Right -Multi-Layered Wrap Application Multi-Layer Comp - Right ($ ) Treatment Response Procedure Tolerated Well Pain Scale: 0-10 Numeric Is Patient Pain Free? Yes WC - Visit Discharge Discharge Condition Stable Ambulatory Status Wheelchair Transportation [facility] Facility Type [facility] Orders Sent Yes Assessment/Plan Assessment/Plan (1) Ankle osteomyelitis, right: CODE(S): M86.9 - Osteomyelitis, unspecified (2) 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: CODE(S): L97.312 - Non-pressure chronic ulcer of right ankle with fat layer exposed (3) Diabetes mellitus with diabetic polyneuropathy: CODE(S): E11.42 - Type 2 diabetes mellitus with diabetic polyneuropathy (4) Type 2 diabetes mellitus with foot ulcer: CODE(S): E11.621 - Type 2 diabetes mellitus with foot ulcer; L97.509 - Non-pressure chronic ulcer of other part of unspecified foot with unspecified severity (5) Delayed wound healing: CODE(S): T14.8XXD - Other injury of unspecified body region, subsequent encounter (6) Hyperlipidemia: CODE(S): E78.5 - Hyperlipidemia, unspecified (7) Tobacco abuse: CODE(S): Z72.0 - Tobacco use (8) Pain in right lower leg: CODE(S): M79.661 - Pain in right lower leg PLAN: Plan Patient seen and evaluated Patient did have radiographs performed 09/26/2023 of the right ankle and foot demonstrating generalized osteopenia, soft tissue swelling, and mild arthritis of the first MTPJ and TNJ. Recent laboratory data demonstrates WBC 9.8, ESR 15, glucose 210. No recent A1c was performed with last A1c of record 03/09/2019 which was 8% at this time. Recommended updating A1c. Wound cultures were obtained 09/26/2023 demonstrating MRSA positive. These cultures do reflect previous past cultures of MRSA positive from August and July 2023. Referral to Dr. Robbins was placed and she did see him on 11/20/23. Patient finished previously prescribed doxycycline 100 mg twice daily for [address] Laughlin. Esqueda stage III Ulceration was debrided as noted in the clinical panel above. Prior to debridement she was locally anesthetized proximal to the ulcerative site consisting of 10 cc 1% lidocaine with epinephrine with block to the sural nerve and superficial peroneal nerve proximal to ulceration. This is noted to improve patient's tolerance of debridement today. Ulceration to the right lateral ankle measures post-debridement measures 1.8 cm x 1.0 cm x 0.2 cm. No localized signs of infection. Change was made in dressings for improvement of source control which has been achieved with Dakin's wet-to-dry dressing. We have previously discontinued the Dakin's. Collagen powder and PHMB dressing applied to wound bed and dressed with DSD. She will change daily. Tubigrip compression applied left lower extremity, 3M compression applied to right lower extremity. There is some progress in reduction in size of ulceration, but this continues to be slow. She had appointment with infectious disease 11/20/23 and oral abx has been completed. She has completed 6 weeks of oral antibiotic treatment. There is noted visual improvement of the wound bed with more healthy granular tissue noted following application of the Dakin's and with continued antibiotics. There is noted improvement in appearance of tissue versus previous visit with improvement in her edema following the increase of her furosemide from 20 mg to 60 mg daily. There is also continued improvement in periwound maceration. Due to continued pain in the right lower extremity and needing pain pump medicine refilled I did issue short-term oral narcotic prescription today, 12/12/2023. Discussed with her that additional medication needs to come from pain management. She is understanding of this. OARRS report was run on her prior to issuing prescription on 12/12/2023. Rx oxycodone acetaminophen 5/325mg number 28 tablets x 7 days. Instructed to take 1 every 8 hours for her pain. With wound bed improved, we have moved to collagen based product as of 11/21/2023. Due to significant amount of pain to palpation about the right lateral ankle and patient underwent MRI 10/11/[address] Laughlin. MRI on 10/11/2023 demonstrating lateral soft tissue swelling with skin thickening. There is focal defect consistent with wound. There is marrow edema of the lateral malleolus and distal fibula, series 7 image 8. Impression: Osteomyelitis of the lateral malleolus of the distal fibula with soft tissue wound and swelling. I have reviewed this MRI series and do note the increased marrow edema of the lateral malleolus and series 7 image 8 but also an image 9. This does appear to be at the outer portion of the cortex of the bone as the remaining images do not demonstrate increased signal. I did discuss these images in detail with the patient today in addition to findings with concern for osteomyelitis. I did discuss possible surgical options with the patient in detail 10/17/2023. All options were discussed with the patient in detail including risks and benefits of each procedure. Discussed risk of BKA with patient today. Patient is understanding of this but would like to save the right lower extremity. Also discussed possible treatment with IV antibiotics and aggressive surgical debridement of the soft tissue. Patient at this time would like to take time to consider options as she is on the oral antibiotic in addition to further discussion with infectious disease. Previous culture results of MRSA positive were reviewed. Due to the patient unable to get into infectious disease I did initiate outpatient oral antibiotic therapy on 10/17/2023. Rx doxycycline 100 mg twice daily x 14 days and Rx levofloxacin 750 mg daily x 14 days. Antibiotic stop date for first round 10/31/2023. This antibiotic regimen was extended due to next infectious disease appointment on 11/20/2023 with stop date of antibiotics 11/18/2023. Following seeing infectious disease he did extend antibiotic an additional 2 weeks. Recommended probiotic use with antibiotic and to take with food. She has finished the 6-week course of oral antibiotics as instructed and there is noted improvement in her wound with continued decrease in size and more healthy appearing tissue. Discussed entering HBO therapy to aid in continued healing of her ulceration site. Orders were placed for chest x-ray, EKG, and routine lab work prior to initiating approval for HBO. I have reviewed lab work demonstrating WBC 11.7 with left shift, ESR 7, CRP 4.72, hemoglobin 13.7, hematocrit 43.4, platelet 248, sodium 134, potassium 4.2, BUN 21, creatinine 1.18, glucose 317. HbgA1c 7.8%. Prealbumin pending. She has also had recurrent sinusitis and is currently taking oral antibiotic for otitis media. She states she has been chronic ear infection following most illnesses. Recommended ENT consult for possible tube placement prior to HBO dives. I do feel patient meets criteria for HBO therapy as ulceration has been present for greater than 6 months, has confirmed osteomyelitis via MRI as stated above, is a Esqueda III ulceration, has undergone applications of advanced wound care products without improvement with prior provider, and is completed 6 weeks of oral antibiotic treatment for her osteomyelitis. Will initiate process of HBO therapy. Recommended adequate protein intake to aid in wound healing. Solomon supplementation is also recommended. Discussed with patient continue proper diabetic diet to aid in wound healing and provide good glycemic control. Discussed glycemic control and lowering of her blood sugar/A1c is important to aid in wound healing. She was again reminded to continue to wear proper fitting shoe gear and to ensure shoe gear is worn at all times for protection of the foot as she is diabetic with significant diminished sensation secondary to peripheral polyneuropathy. Discussed with patient the need for smoking cessation. Discussed impacts of wound healing from her smoking. Discussed with smoking blood flow is diminished to vital organs and extremities which is essential for her wound healing, in addition to affecting oxygen content/saturation of the bloodstream which is also essential for wound healing. Discussed smoking cessation aids and these were offered. Recommended continued discussion with her primary care physician to aid her in smoking cessation. 5 minutes total was spent on discussion 10/03/23. I discussed signs and symptoms of infection today. Discussed if she notices increasing redness of the skin about the ulcerative site moving up the leg, purulent drainage from the wound site, increasing foul odor from the wound, or if she develops fever greater than 101 degree accompanied by nausea, vomiting, chills that these are signs of a progressing infection and she should report to the ED for IV antibiotics and further evaluation. Patient voices understanding of this. The following work up and care recommendations were made: Dressing: Collagen Powder, Hydrogel, PHMB dressing with, dry sterile dressing to Right ankle. Bilateral unna boot compression. Do not get wet. Wash: Do not get wet Tissue growth optimization: Collagen powder/hydrogel Offload: Padded protective dressing of the lateral ankle. Recommended waffle offloading boot while in bed. Vascular: DP and PT pulses weakly palpable bilateral. Monophasic Doppler to left pedal pulses. Edema: Mild edema noted to the lower extremities. Recommended continued Tubigrip compression with elevation of lower extremities. Infection: Osteomyelitis confirmed of the distal lateral malleolus by MRI 10/11/2023. She does demonstrate positive MRSA cultures and finished doxycycline and levofloxacin. She has followed with infectious disease. Pain: May take [id number] Tylenol for discomfort Host factors: DM type II with peripheral polyneuropathy, MRSA positive cultures, edema, chronic tobacco abuse. She will return 12/16/2023 for change of her 3M compression to the right lower extremity with nursing team. I answered all the patient's questions. To return to the wound healing center in 1 week or call sooner if the patient has any questions or concerns.
--- NOTE | 2023-12-23 15:41 | WC ---
CXR RESULTS FOR HBO CLEARANCE FAXED AND CALLED TO [facility]. SPOKE W/ JASON. ALSO NOTIFIED DR DOWNEY. POSSIBLE RLL INFILTRATE. PER JASON, PT IS CURRENTLY ON AMOXICILLIN FOR SINUS/EAR INFECTION UNTIL 12/25/23.
[2023-12-24 21:20] LABS: Prealbumin 33.8 mg/dL (20.0-40.0)
[2023-12-26 08:33] VITALS: BP 145/82; PULSE 87; RESP 18; TEMP 36.4
--- NOTE | 2023-12-26 08:59 | PN.PCM_ITS ---
History of Present Illness Date of Service: 12/26/23 Chief Complaint: Non healing right ankle ulcer History of Wound: Ms. Lam is a 63-year-old who was referred to this facility due to nonhealing right lateral ankle ulcer. Noted a year ago, started out as a bullae and subsequently opened up. She states that over the years, she has had alginate and collagen dressings done at her facility without any significant improvement. History of diabetes mellitus, she is not sure of her most recent A1c but states that it has ranged from 8-13. Also history of tobacco use, smokes daily. There is significant pain around the ulcer but she denies otherwise significant leg pain. Does not wear compression. Mostly sedentary but sleeps in the bed. She feels well otherwise, no chills, fever, nausea, vomiting or change in bowel habit reported. Subjective Subjective This is a 63-year-old female who continues to follow to the wound care center for a right lateral ankle ulceration. Patient is assisted by wheelchair today. She reports finishing oral antibiotic from infectious disease. 3M wrap in place to right leg. She did return for dressing changes with nursing here at wound center. Edema continues to improve with increase in Lasix and 3M compression wrap. States she has performed the necessary lab work and meets with physician today for clearance for HBO therapy. She denies constitutional symptoms. Denies further complaints. Objective Data Objective Data Vital Signs: Vital Signs Temp Pulse Resp BP O2 Del Method 97.5 F L 87 18 145/82 H Room Air 12/26/23 08:33 12/26/23 08:33 12/26/23 08:33 12/26/23 08:33 12/26/23 08:33 Oxygen Delivery Method Room Air Lab / Micro Data 12/19/23 11:18 12/19/23 11:18 Physical Exam Const alert, oriented x3 and no apparent distress General Appearance: cooperative HEENT normocephalic Eyes General Eye: normal appearance of both eyes Neck General: normal visual inspection Lymph Lymphatic: no lymphadenopathy noted and no lymphedema noted Resp normal respiratory effort Cardio regular rate and regular rhythm Extremity normal capillary refill, no calf tenderness and no pedal edema Extremity Narrative: Vascular: DP and PT pulses palpable. Capillary fill time less than 5 seconds to digits. Normal temperature gradient. Hair growth is absent to digits/foot. Neurologic: Light touch sensation diminished. Gross sensation intact. Protective sensation is significantly diminished secondary to diabetic peripheral polyneuropathy. Dermatologic: Skin does appear well-hydrated. Bilateral lower extremity edema R > L, is much improved. Right lateral ankle demonstrates ulceration distal to the lateral malleolus to the level of the subcutaneous tissue with mixed fibrogranular layer and serosanguineous drainage with hyperpigmented rim. There is improvement in periwound maceration noted and granulation of the ulcer site. Ulceration demonstrates no malodor, no purulent drainage, no localized erythema, no increased temperature, no palpable fluctuance/bogginess, no visible abscess formation. Musculoskeletal: Patient is in wheelchair and does have decreased muscle strength of the lower extremities bilateral. Skin no rashes or lesions noted, skin turgor normal and no jaundice Neuro moves all extremities Debridement Note Debridement Note Wound debrided: Right lateral ankle Laterality: Right Wound Grade/Stage: Esqueda stage III Type of Debridement: Excisional debridement Anesthesia Used: 5% Lidocaine Gel and - (10 cc 1% lidocaine with epinephrine) Depth: Down to and including healthy tissue and in the subcutaneous layer Percentage of wound debrided: 100 Instrument Used: 3mm curette Tissue Removed: Fibrous, devitalized subcutaneous, biofilm, slough Severity: Fat Layer Exposed Amount of bleeding with debridement: Mild Bleeding Controlled with: Compression and gauze Patient tolerated procedure: Patient tolerated procedure well Post-Debridement Measurements and Additional Note: Post-Debridement Measurements/Treatment - Nurse 1 - General Ulcer Assessment Start: 12/19/23 09:16 Freq: Status: Active Protocol: .ALINE Activity Type Activity Date Activity User E-sign Co-sign Detail Recorded Client Recorded Date Recorded By Document 12/19/23 09:16 RB wound center 12/19/23 09:19 RB Document 12/26/23 08:33 DS 1 12/26/23 08:37 DS 12/19/23 12/26/23 09:16 08:33 - Today's Visit Information Type of service Follow-up Visit Follow-up Visit (Physician/ASSISTANT PUBLIC DEFENDER (Physician/ASSISTANT PUBLIC DEFENDER ) ) Arrival Mode Wheelchair Wheelchair Transfer Assistance None Patient Identification Verified (Name & Yes ) Patient Requires Transmission-Based No Precautions Safety Precautions NA Finger Stick Blood Sugar(mg/dl) (if 159 indicated): Blood Sugar Stated by Patient Vital Signs Temperature (97.8 F-99.1 F) 96.6 F L 97.5 F L Temperature Source Temporal Temporal Pulse Rate (60-100) 81 87 Pulse Location Monitor Monitor Respiratory Rate (12-18) 18 18 Respiratory rate source Observation Observation Oxygen Delivery Method Room Air Blood Pressure (90/60-120/80) 106/61 145/82 H Blood Pressure Mean (mm Hg) 76 103 Source Monitor Monitor Position Semi-Fowlers Sitting Blood Pressure Location Left Arm Left Arm History Since Last Visit- (Skip if this is Patient's initial visit) Have you changed medications since your Yes No last visit? Any new allergies or adverse reactions No No Had a fall/change in ADL's that may No No increase risk of falls Signs or symptoms of abuse and/or No No neglect since last visit Have you been in the hospital since your No No last visit? Has dressing in place as prescribed Yes Yes Has compression in place as prescribed Yes No Has offloadiing in place as prescribed No No Experienced any changes in pain level or No management Left Footwear Regular Shoe Right Footwear Regular Shoe Pain Scale: 0-10 Numeric Is Patient Pain Free? No No R ANKLE WOUND -Description Aching Sharp,Aching -Intensity 7 8 -Duration (hours) Acute Acute -Pain Behavior Irritability -Pain Aggravating Factors Debridement Debridement -Alleviating Factors/Interventions Medication Will continue to monitor, Emotional Support -Effectiveness of Alleviating Factor/ Moderately Intervention effective WC - Nurse 1 - General Ulcer Measurement Start: 12/19/23 09:16 Freq: Status: Active Protocol: Activity Type Activity Date Activity User E-sign Co-sign Detail Recorded Client Recorded Date Recorded By Document 12/19/23 09:16 RB wound center 12/19/23 09:19 RB Document 12/26/23 08:33 DS 1 12/26/23 08:37 DS 12/19/23 12/26/23 09:16 08:33 Wound Center Nurse 1 #1 R Lat Ankle -Combined with other wound No -Current Size (cm) - Length 1.2 1.5 -Current Size (cm) - Width 1 0.9 -Current Size (cm) - Depth 0.3 0.3 -Total Square Cm 1.2 1.35 -Photo Taken Yes No -Tunneling No -Undermining/Tunneling No -Circular Undermining No -Exudate Amt Medium -Exudate Type Serosanguineous -Wound Margin Thickened & Distinct, Rolled Under Outline Attached -Granulation Amt Medium (34-66%) Medium (34-66%) -Granulation Quality [place] -Slough/Fibrin Yes -Necrosis Amt Medium (34-66%) Medium (34-66%) -Necrotic Tissue Type Adherent Slough Adherent Slough -Structure Exposed N/A -Texture (Lori-wound Skin Appearance) Assessed Assessed -Moisture (Lori-wound Skin Appearance) Assessed Assessed -Color (Lori-wound Skin Appearance) Hemosiderin Assessed Staining -Temperature (Lori-wound Skin No Abnormality Appearance) (Pt Warm) -Tenderness on Palpation (Lori-wound No Skin Appearance) -Ulcer Cleansing Wound Cleanser Soap and Water -Foul Odor after Cleansing No -Anesthetic Used 5% Lidocaine 5% Lidocaine Gel Gel Lower Limb Edema Present Yes Right Calf (cm) 37 34.8 Right Ankle (cm) 23.7 23.0 Left Calf (cm) 37 37.0 Left Ankle (cm) 24 24.6 WC - Nurse 2 - General Ulcer CM Notes Start: 12/19/23 09:16 Freq: Status: Active Protocol: Activity Type Activity Date Activity User E-sign Co-sign Detail Recorded Client Recorded Date Recorded By Document 12/19/23 10:06 [facility] 12/19/23 10:16 [facility] 12/19/23 10:06 Wound Center Nurse 2 #1 R Lat Ankle -Time 10:06 -Correct Patient Yes -Correct Side, Site, Position Yes -Correct Procedure Yes -Procedure Performed Yes -Type of Procedure Debridement -Clinical Debridement Subcutaneous -Tissue Removed Subcutaneous -Post Debridement (cm) - Length 1.8 -Post Debridement (cm) - Width 0.9 -Post Debridement (cm) - Depth 0.2 -Total Square (Post) (cm) 1.62 -Area of Debridement (cm) - Length 1.8 -Area of Debridement (cm) - Width 0.9 -Total Square (Area) (cm) 1.62 -Tunneling No -Undermining/Tunneling No -Circular Undermining No -Wound/Ulcer Outcome Not Healed -Ulcer Cleansing Rinsed/ Irrigated with Saline -Foul Odor after Cleansing No -Bioengineered Tissue No -Injectable Lidocaine (%) 1 -Lidocaine (ml) 10 -Bleeding Controlled with Pressure -Treatment Response Procedure Tolerated Well -Debridement - Subq, 1st 20sq cm Yes Pain Scale: 0-10 Numeric Is Patient Pain Free? No R ANKLE WOUND -Description Sharp,Throbbing ,Aching -Intensity 8 -Duration (hours) Chronic -Alleviating Factors/Interventions Medication -Comments USED INJECTABLE LIDO W/ EPI WC - Nurse 3 - General Ulcer D/C NN Start: 12/19/23 09:16 Freq: Status: Active Protocol: Activity Type Activity Date Activity User E-sign Co-sign Detail Recorded Client Recorded Date Recorded By Document 12/19/23 15:44 DL [id number] 12/19/23 15:45 DL 12/19/23 15:44 Wound Care Center Nurse 3 #1 R Lat Ankle -Foul Odor after Cleansing No -Primary Dressing Applied AMD Dressing 4x4 -Other Dressing NUGEL/PURACHOL -AMD Dressing 4x4 1 Right -Multi-Layered Wrap Application Multi-Layer Comp - Right ($ ) Treatment Response Procedure Tolerated Well Pain Scale: 0-10 Numeric Is Patient Pain Free? Yes WC - Visit Discharge Discharge Condition Stable Ambulatory Status Wheelchair Transportation [facility] Facility Type [facility] Orders Sent Yes Assessment/Plan Assessment/Plan (1) Ankle osteomyelitis, right: CODE(S): M86.9 - Osteomyelitis, unspecified (2) 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: CODE(S): L97.312 - Non-pressure chronic ulcer of right ankle with fat layer exposed (3) Diabetes mellitus with diabetic polyneuropathy: CODE(S): E11.42 - Type 2 diabetes mellitus with diabetic polyneuropathy (4) Type 2 diabetes mellitus with foot ulcer: CODE(S): E11.621 - Type 2 diabetes mellitus with foot ulcer; L97.509 - Non-pressure chronic ulcer of other part of unspecified foot with unspecified severity (5) Delayed wound healing: CODE(S): T14.8XXD - Other injury of unspecified body region, subsequent encounter (6) Hyperlipidemia: CODE(S): E78.5 - Hyperlipidemia, unspecified (7) Tobacco abuse: CODE(S): Z72.0 - Tobacco use (8) Pain in right lower leg: CODE(S): M79.661 - Pain in right lower leg PLAN: Plan Patient seen and evaluated Patient did have radiographs performed 09/26/2023 of the right ankle and foot demonstrating generalized osteopenia, soft tissue swelling, and mild arthritis of the first MTPJ and TNJ. Laboratory data from September 2023 demonstrates WBC 9.8, ESR 15, glucose 210. No recent A1c was performed with last A1c of record 03/09/2019 which was 8% at this time. Recommended updating A1c. Wound cultures were obtained 09/26/2023 demonstrating MRSA positive. These cultures do reflect previous past cultures of MRSA positive from August and July 2023. Referral to Dr. Robbins was placed and she did see him on 11/20/23. Patient finished previously prescribed doxycycline 100 mg twice daily for [address] Laughlin. Esqueda stage III Ulceration was debrided as noted in the clinical panel above. Prior to debridement she was locally anesthetized proximal to the ulcerative site consisting of 10 cc 1% lidocaine with epinephrine with block to the sural nerve and superficial peroneal nerve proximal to ulceration. This is noted to improve patient's tolerance of debridement today. Ulceration to the right lateral ankle measures post-debridement measures 1.0 cm x 0.8 cm x 0.2 cm. No localized signs of infection. Change was made in dressings for improvement of source control which has been achieved with Dakin's wet-to-dry dressing. We have previously discontinued the Dakin's. Collagen powder and PHMB dressing applied to wound bed and dressed with DSD. She will change daily. Tubigrip compression applied left lower extremity, 3M compression applied to right lower extremity. There is some continued progress in reduction in size of ulceration, but this continues to be slow. She would benefit from HBO therapy. She had appointment with infectious disease 11/20/23 and oral abx has been completed. She has completed 6 weeks of oral antibiotic treatment. There is noted visual improvement of the wound bed with more healthy granular tissue noted following application of the Dakin's and following antibiotics. There is noted improvement in appearance of tissue versus previous visit with improvement in her edema following the increase of her furosemide from 20 mg to 60 mg daily. There is also continued improvement in periwound maceration. Due to continued pain in the right lower extremity and needing pain pump medicine refilled I did issue short-term oral narcotic prescription, 12/12/2023. Discussed with her that additional medication needs to come from pain management. She is understanding of this. OARRS report was run on her prior to issuing prescription on 12/12/2023. Rx oxycodone acetaminophen 5/325mg number 28 tablets x 7 days. Instructed to take 1 every 8 hours for her pain. She attempted to ask for additional medication today but I have reminded her further prescriptions need to come from pain management. She reports seeing pain management later this afternoon. With wound bed improved, we have moved to collagen based product as of 11/21/2023 and continue use of this. Due to significant amount of pain to palpation about the right lateral ankle and patient underwent MRI 10/11/[address] Laughlin. MRI on 10/11/2023 demonstrating lateral soft tissue swelling with skin thickening. There is focal defect consistent with wound. There is marrow edema of the lateral malleolus and distal fibula, series 7 image 8. Impression: Osteomyelitis of the lateral malleolus of the distal fibula with soft tissue wound and swelling. I have reviewed this MRI series and do note the increased marrow edema of the lateral malleolus and series 7 image 8 but also an image 9. This does appear to be at the outer portion of the cortex of the bone as the remaining images do not demonstrate increased signal. I did discuss these images in detail with the patient today in addition to findings with concern for osteomyelitis. I did discuss possible surgical options with the patient in detail 10/17/2023. All options were discussed with the patient in detail including risks and benefits of each procedure. Discussed risk of BKA with patient today. Patient is understanding of this but would like to save the right lower extremity. Also discussed possible treatment with IV antibiotics and aggressive surgical debridement of the soft tissue. Patient at this time would like to take time to consider options as she is on the oral antibiotic in addition to further discussion with infectious disease. Previous culture results of MRSA positive were reviewed. Due to the patient unable to get into infectious disease I did initiate outpatient oral antibiotic therapy on 10/17/2023. Rx doxycycline 100 mg twice daily x 14 days and Rx levofloxacin 750 mg daily x 14 days. Antibiotic stop date for first round 10/31/2023. This antibiotic regimen was extended due to next infectious disease appointment on 11/20/2023 with stop date of antibiotics 11/18/2023. Following seeing infectious disease he did extend antibiotic an additional 2 weeks. Recommended probiotic use with antibiotic and to take with food. She has finished the 6-week course of oral antibiotics as instructed and there is noted improvement in her wound with continued decrease in size and more healthy appearing tissue. Discussed entering HBO therapy to aid in continued healing of her ulceration site. Orders were placed for chest x-ray, EKG, and routine lab work prior to initiating approval for HBO. I have reviewed lab work demonstrating WBC 11.7 with left shift, ESR 7, CRP 4.72, hemoglobin 13.7, hematocrit 43.4, platelet 248, sodium 134, potassium 4.2, BUN 21, creatinine 1.18, glucose 317. HbgA1c 7.8%. Prealbumin 33.8. She has also had recurrent sinusitis and is currently taking oral antibiotic for otitis media. She states she has been chronic ear infection following most illnesses. Recommended ENT consult for possible tube placement prior to HBO dives. I do feel patient meets criteria for HBO therapy as ulceration has been present for greater than 6 months, has confirmed osteomyelitis via MRI as stated above, is a Esqueda III ulceration, has undergone applications of advanced wound care products without improvement with prior provider, and is completed 6 weeks of oral antibiotic treatment for her osteomyelitis. She meets with physician today, 12/26/23 for physical and clearance of HBO therapy. Recommended adequate protein intake to aid in wound healing. Solomon supplementation is also recommended. Discussed with patient continue proper diabetic diet to aid in wound healing and provide good glycemic control. Discussed glycemic control and lowering of her blood sugar/A1c is important to aid in wound healing. She was again reminded to continue to wear proper fitting shoe gear and to ensure shoe gear is worn at all times for protection of the foot as she is diabetic with significant diminished sensation secondary to peripheral polyneuropathy. Discussed with patient the need for smoking cessation. Discussed impacts of wound healing from her smoking. Discussed with smoking blood flow is diminished to vital organs and extremities which is essential for her wound healing, in addition to affecting oxygen content/saturation of the bloodstream which is also essential for wound healing. Discussed smoking cessation aids and these were offered. Recommended continued discussion with her primary care physician to aid her in smoking cessation. 5 minutes total was spent on discussion 10/03/23. I discussed signs and symptoms of infection today. Discussed if she notices increasing redness of the skin about the ulcerative site moving up the leg, purulent drainage from the wound site, increasing foul odor from the wound, or if she develops fever greater than 101 degree accompanied by nausea, vomiting, chills that these are signs of a progressing infection and she should report to the ED for IV antibiotics and further evaluation. Patient voices understanding of this. The following work up and care recommendations were made: Dressing: Collagen Powder, Hydrogel, PHMB dressing with, dry sterile dressing to Right ankle. Bilateral unna boot compression. Do not get wet. Wash: Do not get wet Tissue growth optimization: Collagen powder/hydrogel Offload: Padded protective dressing of the lateral ankle. Recommended waffle offloading boot while in bed. Vascular: DP and PT pulses weakly palpable bilateral. Monophasic Doppler to left pedal pulses. Edema: Mild edema noted to the lower extremities. Recommended continued Tubigrip compression with elevation of lower extremities. Infection: Osteomyelitis confirmed of the distal lateral malleolus by MRI 10/11/2023. She does demonstrate positive MRSA cultures and finished doxycycline and levofloxacin. She has followed with infectious disease. Pain: May take [id number] Tylenol for discomfort Host factors: DM type II with peripheral polyneuropathy, MRSA positive cultures, edema, chronic tobacco abuse. She will return 12/16/2023 for change of her 3M compression to the right lower extremity with nursing team. I answered all the patient's questions. To return to the wound healing center in 1 week or call sooner if the patient has any questions or concerns.
--- NOTE | 2023-12-26 10:46 | PCM.CONHBO ---
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 Esqueda stage III per documentation. Also history of osteomyelitis and recently completed a 6-week course of antibiotic with out any significant progress in ulcer due to the aforementioned history/progression, she will be a good candidate for hyperbaric oxygen treatment. She was advised that this would be a commitment for 5 days a week for 90 minutes without air breaks. She reports a history of claustrophobia but plans to speak with her primary care physician to start her on buspirone for anxiety. She also reports a history of recurrent ear infections as a child and currently also has chronic sinusitis/deviated septum, she would benefit from evaluation by ENT, this has been ordered, plans to schedule this visit. History of tobacco abuse which she does not plan to stop. Chronic obstructive pulmonary disease which per patient is stable. No recent hospital admissions for exacerbations and chest x-ray done with no significant concerns save for infiltrate suggestive of pneumonia. She is currently on amoxicillin for this. EKG also reviewed, left ventricular hypertrophy otherwise normal EKG. She reports a longstanding history of hypertension. She denies chest pain or shortness of breath at rest or minimal exertion, typically not very active. Also history of insulin diabetes mellitus and as above, she states that her readings tend to be high. At this time, there is no absolute contraindication to hyperbaric oxygen therapy which I believe she would benefit from given history as discussed above. Recommend 40 - 60 sessions of hyperbaric oxygen at 2 ALEXA for 90 minutes without air breaks. Pre and post blood glucose monitoring. Evaluation by ENT prior to HBO initiation. Her questions were answered and she was advised to let us know if she has any further questions or concerns. Continue chronic wound care. This note was generated with [employer]ur[employer] software. It may contain incorrect words, spelling, and punctuation that were not noted in checking the note before signing. History of Present Illness Date of Service: 12/26/23 Chief Complaint: Non healing right ankle ulcer History of Wound: Ms. Lam is a 63-year-old currently being managed for chronic right ankle ulcer. Diagnosed with osteomyelitis in September following significant wound breakdown. Transfer of care to podiatry whom she has been seeing since then. Was also seen in consult by infectious disease and completed a 6-week course of oral antibiotics. Per documentation, slow progress despite changes. History of diabetes mellitus and also history of tobacco use. Smokes daily. She reports a history of COPD but denies any concerns with her breathing. No recent hospital admission for exacerbation. She reports a history of recurrent ear infections as a child needing an ear tube. She also reports recurrent sinusitis and a history of deviated septum. She reports varied blood glucose readings but she states that she is mostly high. Insulin-dependent diabetes mellitus. No history of seizures. Recently had a chest x-ray and EKG done. [facility] Medical History (Updated 12/26/23 @ 12:[address] Chilango Laughlin MD) Wears glasses Wears dentures Post-menopausal MRSA infection Depression Alcohol use Substance abuse History of pressure injury of skin Open wound Pressure ulcer Uses wheelchair Ambulates with cane Rheumatoid arthritis Arthritis High cholesterol Restless legs Back pain Injury of back Smoker Asthma Shortness of breath on exertion History of pain when walking History of edema History of stress test Tobacco abuse Insulin dependent diabetes mellitus 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 Diabetes GERD (gastroesophageal reflux disease) Anxiety Schizophrenia Schizoaffective disorder Hyperlipidemia Insomnia Neuralgia and neuritis Spondylosis Mild asthma Cerebral vascular disease Hypertension Home Medications ?Medication ?Instructions ?Recorded ?Last Taken ?Type amlodipine 5 mg tablet 5 mg PO DAILY blood pressure 03/08/19 03/08/19 History ondansetron HCl 4 mg tablet 4 mg PO Q6H PRN PRN Nausea 03/08/19 Unknown History prazosin 1 mg capsule 1 mg PO QHS nightmares 03/08/19 03/07/19 20:00 History albuterol sulfate 2.5 mg/3 mL 2.5 mg inhalation Q4H PRN SOB 07/29/21 Unknown History (0.083 %) solution for nebulization apixaban 5 mg tablet (Eliquis) 5 mg PO BID 07/29/21 Unknown History cyclosporine 0.05 % eye drops in a 1 drp EACH EYE Q12H 07/29/21 Unknown History dropperette (Restasis) lurasidone 80 mg tablet (Latuda) 80 mg PO DAILY 07/29/21 Unknown History naloxegol 25 mg tablet (Movantik) 25 mg PO DAILY 07/29/21 Unknown History pantoprazole 40 mg tablet,delayed 40 mg PO DAILY 07/29/21 Unknown History release acetaminophen 325 mg tablet 650 mg PO ONCE PRN fever or pain 12/18/22 Unknown History aluminum-mag hydroxide-simethicone 5 ml PO Q3H 12/18/22 Unknown History 400 mg-400 mg-40 mg/5 mL oral susp (Maalox Maximum Strength) atenolol 25 mg tablet 25 mg PO DAILY 12/18/22 Unknown History atorvastatin 80 mg tablet 40 mg PO QHS cholesterol 12/18/22 Unknown History baclofen 5 mg tablet 5 mg PO TID 12/18/22 Unknown History benzonatate 100 mg capsule 100 mg PO Q8H PRN cough 12/18/22 Unknown History bisacodyl 10 mg rectal suppository 10 mg MN Q8H PRN constipation 12/18/22 Unknown History (Dulcolax (bisacodyl)) bisacodyl 5 mg tablet,delayed 5 mg PO Q8H 12/18/22 Unknown History release (Dulcolax (bisacodyl)) carboxymethylcellulose sodium 0.5 1 drp ophthalmic (eye) QHS 12/18/22 Unknown History % eye drops (Refresh Tears) cholecalciferol (vitamin D3) 125 125 mcg PO DAILY 12/18/22 Unknown History mcg (5,000 unit) capsule diclofenac sodium 1 % topical gel 2 g topical ONCE 12/18/22 Unknown History dyclonine 2 mg lozenges (Sucrets 2 mg mucous membrane Q3H PRN sore 12/18/22 Unknown History Sore Throat) throat epinephrine 0.3 mg/0.3 mL 0.3 mg IM Q5-15M PRN anaphylaxis 12/18/22 Unknown History injection, auto-injector (EpiPen) flash glucose sensor (FreeStyle 12/18/22 Unknown History Cynthia 2 Sensor kit) fluticasone fur. 200 mcg-umeclid 1 inh inhalation DAILY 12/18/22 Unknown History 62.5 mcg-vilant 25 mcg inhalat.powder (Trelegy Ellipta) fluticasone propionate 50 2 spray intranasal DAILY 12/18/22 Unknown History mcg/actuation nasal spray,suspension (Flonase Allergy Relief) guaifenesin 100 mg/5 mL oral liquid 200 mg PO Q4H PRN cough 12/18/22 Unknown History hydroxyzine pamoate 25 mg capsule 25 mg PO QHS 12/18/22 Unknown History (Vistaril) insulin glargine U-300 conc 300 100 unit subcut BID 12/18/22 Unknown History unit/mL (1.5 mL) subcutaneous pen (Toujeo SoloStar U-300 Insulin) ipratropium 0.5 mg-albuterol 3 mg 3 ml inhalation BID 12/18/22 Unknown History (2.5 mg base)/3 mL nebulization soln ipratropium 20 mcg-albuterol 100 1 puff inhalation Q6H 12/18/22 Unknown History mcg/actuation mist for inhalation (Combivent Respimat) ipratropium bromide 21 mcg (0.03 2 spray intranasal BID 12/18/22 Unknown History %) nasal spray lisinopril 2.5 mg tablet 2.5 mg PO DAILY 12/18/22 Unknown History loratadine 10 mg tablet (Claritin) 10 mg PO DAILY 12/18/22 Unknown History melatonin 3 mg capsule 3 mg PO HS 12/18/22 Unknown History metformin 500 mg tablet 500 mg PO BID 12/18/22 Unknown History montelukast 10 mg tablet 10 mg PO DAILY 12/18/22 Unknown History naloxone 0.4 mg/mL injection 0.2 mg subcut ONCE PRN opioid 12/18/22 Unknown History solution reversal olanzapine 10 mg tablet (Zyprexa) 10 mg PO QPM 12/18/22 Unknown History polyethylene glycol 3350 17 4 g PO DAILY 12/18/22 Unknown History gram/dose oral powder (Miralax) tizanidine 2 mg tablet 2 mg PO Q12H PRN muscle spasticity 12/18/22 Unknown History duloxetine 60 mg capsule,delayed 60 mg PO BID 01/16/23 Unknown History release (Cymbalta) potassium chloride 20 mEq 20 meq PO DAILY 01/16/23 Unknown History tablet,extended release pregabalin 100 mg capsule 100 mg PO BID 01/16/23 Unknown History furosemide 20 mg tablet 60 mg (3 x 20 mg) PO QAM #90 tabs 11/24/23 Unknown Rx Lactobacillus rhamnosus GG 10 1 cap PO BID 11/27/23 Unknown History billion cell capsule (Culturelle) buspirone 5 mg tablet 5 mg PO BID 11/27/23 Unknown History exenatide microspheres 2 mg/0.85 2 mg subcut MO 11/27/23 Unknown History mL subcutaneous auto-injector (Bydureon BCise) insulin lispro 100 unit/mL 1 sliding scale dose subcut TID 11/27/23 Unknown History subcutaneous pen (Humalog KwikPen (U-100) Insulin) insulin lispro 100 unit/mL See Rx Instructions subcut TID 11/27/23 Unknown History subcutaneous pen (Humalog KwikPen (U-100) Insulin) loperamide 2 mg capsule 4 mg PO BID PRN loose stool 11/27/23 Unknown History (Anti-Diarrheal (loperamide)) Allergy/AdvReac Type Severity Reaction Status Date / Time apricot Allergy Unknown PT UNSURE Verified 11/27/23 09:22 OF REACTION BCG (Bacillus Allergy Unknown Other Verified 11/27/23 09:22 Calmette-Zohra) vacc bee venom protein (honey Allergy Unknown Other Verified 11/27/23 09:22 bee) (bee sting) corn Allergy Unknown Other Verified 11/27/23 09:22 Milk Containing Products Allergy Unknown Other Verified 11/27/23 09:22 (Dairy) peas Allergy Unknown Other Verified 11/27/23 09:22 tomato Allergy Unknown Other Verified 11/27/23 09:22 Iodinated Contrast Media Allergy Hives Verified 11/27/23 09:22 (Iodinated Contrast Media - IV Dye) amoxicillin trihydrate (From AdvReac Itching Verified 11/27/23 09:22 Augmentin) hydrocodone (From Vicodin) AdvReac Unknown Verified 11/27/23 09:22 potassium clavulanate (From AdvReac Itching Verified 11/27/23 09:22 Augmentin) prednisone AdvReac Unknown Verified 11/27/23 09:22 shellfish derived AdvReac Itching Verified 11/27/23 09:22 Surgical History (Updated 11/27/23 @ 09:30 by Nina Mckeon) History of History of tubal ligation History of hysterectomy History of cholecystectomy History of appendectomy S/P right rotator cuff repair Social History Smoking Status: Current every day smoker tobacco type: cigarettes ROS Constitutional Constitutional: Denies chills, excessive sweating, fatigue, headache(s), increased appetite, night sweats, poor appetite or weakness Eyes Eyes: Denies change in vision, discharge from eye(s), discongugate gaze, excessive blinking, exophthalmos, loss of peripheral vision or nystagmus ENT HEENT: Denies dysphagia, ear discharge, ear pain, epistaxis, foreign body in nose, halitosis, headache(s), hearing loss or hoarseness Cardiovascular Cardiovascular: Reports leg ulcers; Denies bluish discoloration of hand/feet, chest pain, cyanosis, diaphoresis, dizziness, erythema on extremities, lightheadedness or pounding heartbeat Respiratory/Chest Respiratory/Chest: Denies difficulty clearing secretions, dusky skin, dyspnea, hemoptysis, hoarseness, inability to speak, mouth breathing, nail bed cyanosis or shortness of breath at rest Gastrointestinal Gastrointestinal: Denies change in bowel habits, chewing difficulty, coffee ground emesis, dry heaves or taste impaired Genitourinary Genitourinary: Denies abdominal discomfort, difficulty urinating, movement, flank pain, itching or urinary frequency Musculoskeletal Musculoskeletal: Denies muscle spasms, neck pain, radiating pain into limb, tingling or tremors Integumentary Integumentary: Reports skin ulcer; Denies erythema, furuncle, hirsutism, jaundice, nail changes, pruritus or skin swelling Neurologic Neurologic: Denies behavior changes, burning sensations, convulsions, disequilibrium, loss of vision or memory loss Psychiatric Psychiatric: Denies hallucinations, homicidal ideation, hopelessness, irritability, memory loss, suicidal ideation, tactile hallucinations or visual hallucinations Endocrine Endocrinology: Denies deepening of the voice, excessive sweating, heat intolerance, increase in ring/shoe/hat size or polydipsia Hematologic/Lymphatic Hematologic/Lymphatic: Denies lymphadenopathy Allergic/Immunologic Allergic/Immunologic: Denies itchy eyes, throat swelling, tongue swelling, urticaria, eczemia or wheezing Physical Exam Physical Exam Const alert, oriented x3 and no apparent distress General Appearance: cooperative, comfortable and well kempt HEENT normocephalic and head/scalp atraumatic Tympanic Membrane: TM's normal bilaterally Eyes EOMs intact bilaterally General Eye: normal appearance of both eyes Neck full ROM and supple General: normal visual inspection Resp normal respiratory effort and normal air movement Effort and Inspection: able to speak in complete sentences Cardio regular rate, regular rhythm, S1 normal heart sound and S2 normal heart sound GI soft to palpation and non-tender Extremity General Extremity: edema Neuro oriented x3, CN's II-XII intact bilaterally and moves all extremities Psych mental status grossly normal, thought process normal, cooperative and affect normal Nursing Assessment and Debridement Post-Debridement Measurements and Additional Note: Post-Debridement Measurements/Treatment WC - Nurse 1 - General Ulcer Assessment Start: 12/19/23 09:16 Freq: Status: Active Protocol: CLOVIS Activity Type Activity Date Activity User E-sign Co-sign Detail Recorded Client Recorded Date Recorded By Document 12/26/23 08:33 DS 1 12/26/23 08:37 DS 12/26/23 08:33 WC - Today's Visit Information Type of service Follow-up Visit (Physician/RELATIONSHIP MGR ) Arrival Mode Wheelchair Safety Precautions NA Vital Signs Temperature (97.8 F-99.1 F) 97.5 F L Temperature Source Temporal Pulse Rate (60-100 beats/min) 87 Pulse Location Monitor Respiratory Rate (12-18 breaths/min) 18 Respiratory rate source Observation Oxygen Delivery Method Room Air Blood Pressure (90/60-120/80 mm Hg) 145/82 H Blood Pressure Mean (mm Hg) 103 Source Monitor Position Sitting Blood Pressure Location Left Arm History Since Last Visit- (Skip if this is Patient's initial visit) Have you changed medications since your No last visit? Any new allergies or adverse reactions No Had a fall/change in ADL's that may No increase risk of falls Signs or symptoms of abuse and/or No neglect since last visit Have you been in the hospital since your No last visit? Has dressing in place as prescribed Yes Has compression in place as prescribed No Has offloadiing in place as prescribed No Left Footwear Regular Shoe Right Footwear Regular Shoe Pain Scale: 0-10 Numeric Is Patient Pain Free? No R ANKLE WOUND -Description Sharp,Aching -Intensity 8 -Duration (hours) Acute -Pain Aggravating Factors Debridement -Alleviating Factors/Interventions Will continue to monitor, Emotional Support WC - Nurse 1 - General Ulcer Measurement Start: 12/19/23 09:16 Freq: Status: Active Protocol: Activity Type Activity Date Activity User E-sign Co-sign Detail Recorded Client Recorded Date Recorded By Document 12/26/23 08:33 DS 1 12/26/23 08:37 DS 12/26/23 08:33 Wound Center Nurse 1 #1 R Lat Ankle -Current Size (cm) - Length 1.5 -Current Size (cm) - Width 0.9 -Current Size (cm) - Depth 0.3 -Total Square Cm 1.35 -Photo Taken No -Wound Margin Distinct, Outline Attached -Granulation Amt Medium (34-66%) -Necrosis Amt Medium (34-66%) -Necrotic Tissue Type Adherent Slough -Texture (Lori-wound Skin Appearance) Assessed -Moisture (Lori-wound Skin Appearance) Assessed -Color (Lori-wound Skin Appearance) Assessed -Ulcer Cleansing Soap and Water -Anesthetic Used 5% Lidocaine Gel Right Calf (cm) 34.8 Right Ankle (cm) 23.0 Left Calf (cm) 37.0 Left Ankle (cm) 24.6 RUY - Nurse 2 - General Ulcer CM Notes Start: 12/19/23 09:16 Freq: Status: Active Protocol: Activity Type Activity Date Activity User E-sign Co-sign Detail Recorded Client Recorded Date Recorded By Document 12/26/23 08:57 [facility] 12/26/23 09:10 [facility] Document 12/26/23 09:44 GM 12/26/23 09:54 12/26/23 12/26/23 08:57 09:44 Wound Center Nurse 2 #1 R Lat Ankle -Time 08:58 09:44 -Correct Patient Yes Yes -Correct Side, Site, Position Yes Yes -Correct Procedure Yes -Procedure Performed Yes -Type of Procedure Debridement -Clinical Debridement Subcutaneous -Tissue Removed Subcutaneous -Post Debridement (cm) - Length 1 -Post Debridement (cm) - Width 0.8 -Post Debridement (cm) - Depth 0.2 -Total Square (Post) (cm) 0.8 -Area of Debridement (cm) - Length 1 -Area of Debridement (cm) - Width 0.8 -Total Square (Area) (cm) 0.8 -Tunneling No -Undermining/Tunneling No -Circular Undermining No -Wound/Ulcer Outcome Not Healed -Ulcer Cleansing Rinsed/ Irrigated with Saline -Foul Odor after Cleansing No -Bioengineered Tissue No -Injectable Lidocaine w/ Epi (%) 1 -Injectable Lidocaine w/ Epi (mls) 10 -Bleeding Controlled with Pressure -Treatment Response Procedure Tolerated Well -Debridement - Subq, 1st 20sq cm Yes Pain Scale: 0-10 Numeric Is Patient Pain Free? Yes Yes Lab / Micro Data 12/19/23 11:18 12/19/23 11:18 Charges/Coding Visit Charges Office Visits / Consults: [id number] OV L3 Est 20min
[2024-01-02 08:40] VITALS: BP 124/60; PULSE 83; RESP 16; TEMP 36
--- NOTE | 2024-01-02 08:43 | PCM.WC.PN ---
History of Present Illness Date of Service: 01/02/24 Chief Complaint: Non healing right ankle ulcer History of Wound: Ms. Lam is a 63-year-old currently being managed for chronic right ankle ulcer. Diagnosed with osteomyelitis in September following significant wound breakdown. Transfer of care to podiatry whom she has been seeing since then. Was also seen in consult by infectious disease and completed a 6-week course of oral antibiotics. Per documentation, slow progress despite changes. History of diabetes mellitus and also history of tobacco use. Smokes daily. She reports a history of COPD but denies any concerns with her breathing. No recent hospital admission for exacerbation. She reports a history of recurrent ear infections as a child needing an ear tube. She also reports recurrent sinusitis and a history of deviated septum. She reports varied blood glucose readings but she states that she is mostly high. Insulin-dependent diabetes mellitus. No history of seizures. Recently had a chest x-ray and EKG done. Subjective Subjective This is a 63-year-old female who continues to follow to the wound care center for a right lateral ankle ulceration. Patient is assisted by wheelchair today. 3M wrap in place to right leg. She did return for dressing changes with nursing here at wound center. She has states she will see ENT January 09 for evaluation for tube placement prior to HBO dives. She denies constitutional symptoms. Denies further complaints. Objective Data Objective Data Vital Signs: Vital Signs Temp Pulse Resp BP O2 Del Method 97.5 F L 87 18 145/82 H Room Air 12/26/23 08:33 12/26/23 08:33 12/26/23 08:33 12/26/23 08:33 12/26/23 08:33 Oxygen Delivery Method Room Air Lab / Micro Data 12/19/23 11:18 12/19/23 11:18 Physical Exam Const alert, oriented x3 and no apparent distress General Appearance: cooperative HEENT normocephalic Eyes General Eye: normal appearance of both eyes Neck General: normal visual inspection Lymph Lymphatic: no lymphadenopathy noted and no lymphedema noted Resp normal respiratory effort Cardio regular rate and regular rhythm Extremity normal capillary refill, no calf tenderness and no pedal edema Extremity Narrative: Vascular: DP and PT pulses palpable. Capillary fill time less than 5 seconds to digits. Normal temperature gradient. Hair growth is absent to digits/foot. Neurologic: Light touch sensation diminished. Gross sensation intact. Protective sensation is significantly diminished secondary to diabetic peripheral polyneuropathy. Dermatologic: Skin does appear well-hydrated. Bilateral lower extremity edema R > L continues improvement. Right lateral ankle demonstrates ulceration distal to the lateral malleolus to the level of the subcutaneous tissue with mixed fibrogranular layer and serosanguineous drainage with hyperpigmented rim. There is improvement in periwound maceration noted and granulation of the ulcer site. Ulceration demonstrates no malodor, no purulent drainage, no localized erythema, no increased temperature, no palpable fluctuance/bogginess, no visible abscess formation. Musculoskeletal: Patient is in wheelchair and does have decreased muscle strength of the lower extremities bilateral. Skin no rashes or lesions noted, skin turgor normal and no jaundice Neuro moves all extremities Debridement Note Debridement Note Wound debrided: Right lateral ankle Laterality: Right Wound Grade/Stage: Esqueda stage III Type of Debridement: Excisional debridement Anesthesia Used: 5% Lidocaine Gel Depth: Down to and including healthy tissue and in the subcutaneous layer Percentage of wound debrided: 100 Instrument Used: 5mm curette Tissue Removed: Fibrous, devitalized subcutaneous, biofilm, slough Severity: Fat Layer Exposed Amount of bleeding with debridement: Mild Bleeding Controlled with: Compression and gauze Patient tolerated procedure: Patient tolerated procedure well Post-Debridement Measurements and Additional Note: Post-Debridement Measurements/Treatment - Nurse 1 - General Ulcer Assessment Start: 12/19/23 09:16 Freq: Status: Active Protocol: .LOWEXT Activity Type Activity Date Activity User E-sign Co-sign Detail Recorded Client Recorded Date Recorded By Document 12/19/23 09:16 wound center 12/19/23 09:19 RB Document 12/26/23 08:33 DS 1 12/26/23 08:37 DS 12/19/23 12/26/23 09:16 08:33 - Today's Visit Information Type of service Follow-up Visit Follow-up Visit (Physician/CLOTH DYEING RANGE TENDER (Physician/CLOTH DYEING RANGE TENDER ) ) Arrival Mode Wheelchair Wheelchair Transfer Assistance None Patient Identification Verified (Name & Yes ) Patient Requires Transmission-Based No Precautions Safety Precautions NA Finger Stick Blood Sugar(mg/dl) (if 159 indicated): Blood Sugar Stated by Patient Vital Signs Temperature (97.8 F-99.1 F) 96.6 F L 97.5 F L Temperature Source Temporal Temporal Pulse Rate (60-100) 81 87 Pulse Location Monitor Monitor Respiratory Rate (12-18) 18 18 Respiratory rate source Observation Observation Oxygen Delivery Method Room Air Blood Pressure (90/60-120/80) 106/61 145/82 H Blood Pressure Mean (mm Hg) 76 103 Source Monitor Monitor Position Semi-Fowlers Sitting Blood Pressure Location Left Arm Left Arm History Since Last Visit- (Skip if this is Patient's initial visit) Have you changed medications since your Yes No last visit? Any new allergies or adverse reactions No No Had a fall/change in ADL's that may No No increase risk of falls Signs or symptoms of abuse and/or No No neglect since last visit Have you been in the hospital since your No No last visit? Has dressing in place as prescribed Yes Yes Has compression in place as prescribed Yes No Has offloadiing in place as prescribed No No Experienced any changes in pain level or No management Left Footwear Regular Shoe Right Footwear Regular Shoe Pain Scale: 0-10 Numeric Is Patient Pain Free? No No R ANKLE WOUND -Description Aching Sharp,Aching -Intensity 7 8 -Duration (hours) Acute Acute -Pain Behavior Irritability -Pain Aggravating Factors Debridement Debridement -Alleviating Factors/Interventions Medication Will continue to monitor, Emotional Support -Effectiveness of Alleviating Factor/ Moderately Intervention effective WC - Nurse 1 - General Ulcer Measurement Start: 12/19/23 09:16 Freq: Status: Active Protocol: Activity Type Activity Date Activity User E-sign Co-sign Detail Recorded Client Recorded Date Recorded By Document 12/19/23 09:16 RB wound center 12/19/23 09:19 RB Document 12/26/23 08:33 DS 1 12/26/23 08:37 DS 12/19/23 12/26/23 09:16 08:33 Wound Center Nurse 1 #1 R Lat Ankle -Combined with other wound No -Current Size (cm) - Length 1.2 1.5 -Current Size (cm) - Width 1 0.9 -Current Size (cm) - Depth 0.3 0.3 -Total Square Cm 1.2 1.35 -Photo Taken Yes No -Tunneling No -Undermining/Tunneling No -Circular Undermining No -Exudate Amt Medium -Exudate Type Serosanguineous -Wound Margin Thickened & Distinct, Rolled Under Outline Attached -Granulation Amt Medium (34-66%) Medium (34-66%) -Granulation Quality [place] -Slough/Fibrin Yes -Necrosis Amt Medium (34-66%) Medium (34-66%) -Necrotic Tissue Type Adherent Slough Adherent Slough -Structure Exposed N/A -Texture (Lori-wound Skin Appearance) Assessed Assessed -Moisture (Lori-wound Skin Appearance) Assessed Assessed -Color (Lori-wound Skin Appearance) Hemosiderin Assessed Staining -Temperature (Lori-wound Skin No Abnormality Appearance) (Pt Warm) -Tenderness on Palpation (Lori-wound No Skin Appearance) -Ulcer Cleansing Wound Cleanser Soap and Water -Foul Odor after Cleansing No -Anesthetic Used 5% Lidocaine 5% Lidocaine Gel Gel Lower Limb Edema Present Yes Right Calf (cm) 37 34.8 Right Ankle (cm) 23.7 23.0 Left Calf (cm) 37 37.0 Left Ankle (cm) 24 24.6 WC - Nurse 2 - General Ulcer CM Notes Start: 12/19/23 09:16 Freq: Status: Active Protocol: Activity Type Activity Date Activity User E-sign Co-sign Detail Recorded Client Recorded Date Recorded By Document 12/19/23 10:06 [facility] 12/19/23 10:16 [facility] Document 12/26/23 08:57 [facility] 12/26/23 09:10 [facility] Document 12/26/23 09:44 GM 12/26/23 09:54 GM 12/19/23 12/26/23 12/26/23 10:06 08:57 09:44 Wound Center Nurse 2 #1 R Lat Ankle -Time 10:06 08:58 09:44 -Correct Patient Yes Yes Yes -Correct Side, Site, Position Yes Yes Yes -Correct Procedure Yes Yes -Procedure Performed Yes Yes -Type of Procedure Debridement Debridement -Clinical Debridement Subcutaneous Subcutaneous -Tissue Removed Subcutaneous Subcutaneous -Post Debridement (cm) - Length 1.8 1 -Post Debridement (cm) - Width 0.9 0.8 -Post Debridement (cm) - Depth 0.2 0.2 -Total Square (Post) (cm) 1.62 0.8 -Area of Debridement (cm) - Length 1.8 1 -Area of Debridement (cm) - Width 0.9 0.8 -Total Square (Area) (cm) 1.62 0.8 -Tunneling No No -Undermining/Tunneling No No -Circular Undermining No No -Wound/Ulcer Outcome Not Healed Not Healed -Ulcer Cleansing Rinsed/ Rinsed/ Irrigated with Irrigated with Saline Saline -Foul Odor after Cleansing No No -Bioengineered Tissue No No -Injectable Lidocaine (%) 1 -Lidocaine (ml) 10 -Injectable Lidocaine w/ Epi (%) 1 -Injectable Lidocaine w/ Epi (mls) 10 -Bleeding Controlled with Pressure Pressure -Treatment Response Procedure Procedure Tolerated Well Tolerated Well -Debridement - Subq, 1st 20sq cm Yes Yes Pain Scale: 0-10 Numeric Is Patient Pain Free? No Yes Yes R ANKLE WOUND -Description Sharp,Throbbing ,Aching -Intensity 8 -Duration (hours) Chronic -Alleviating Factors/Interventions Medication -Comments USED INJECTABLE LIDO W/ EPI - Nurse 3 - General Ulcer D/C NN Start: 12/19/23 09:16 Freq: Status: Active Protocol: Activity Type Activity Date Activity User E-sign Co-sign Detail Recorded Client Recorded Date Recorded By Document 12/19/23 15:44 DL [id number] 12/19/23 15:45 DL 12/19/23 15:44 Wound Care Center Nurse 3 #1 R Lat Ankle -Foul Odor after Cleansing No -Primary Dressing Applied AMD Dressing 4x4 -Other Dressing NUGEL/PURACHOL -AMD Dressing 4x4 1 Right -Multi-Layered Wrap Application Multi-Layer Comp - Right ($ ) Treatment Response Procedure Tolerated Well Pain Scale: 0-10 Numeric Is Patient Pain Free? Yes WC - Visit Discharge Discharge Condition Stable Ambulatory Status Wheelchair Transportation ECF TRANS Facility Type Clinical Cytogeneticist Scientist Care Facility Orders Sent Yes Assessment/Plan Assessment/Plan (1) Ankle osteomyelitis, right: CODE(S): M86.9 - Osteomyelitis, unspecified (2) 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: CODE(S): L97.312 - Non-pressure chronic ulcer of right ankle with fat layer exposed (3) Diabetes mellitus with diabetic polyneuropathy: CODE(S): E11.42 - Type 2 diabetes mellitus with diabetic polyneuropathy (4) Type 2 diabetes mellitus with foot ulcer: CODE(S): E11.621 - Type 2 diabetes mellitus with foot ulcer; L97.509 - Non-pressure chronic ulcer of other part of unspecified foot with unspecified severity QUALIFIERS: 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: without intermediate use Qualified Code(s): E11.621 - Type 2 diabetes mellitus with foot ulcer; L97.509 - Non-pressure chronic ulcer of other part of unspecified foot with unspecified severity (5) Delayed wound healing: CODE(S): T14.8XXD - Other injury of unspecified body region, subsequent encounter (6) Hyperlipidemia: CODE(S): E78.5 - Hyperlipidemia, unspecified (7) Tobacco abuse: CODE(S): Z72.0 - Tobacco use (8) Pain in right lower leg: CODE(S): M79.661 - Pain in right lower leg PLAN: Plan Patient seen and evaluated Patient did have radiographs performed 09/26/2023 of the right ankle and foot demonstrating generalized osteopenia, soft tissue swelling, and mild arthritis of the first MTPJ and TNJ. Laboratory data from September 2023 demonstrates WBC 9.8, ESR 15, glucose 210. No recent A1c was performed with last A1c of record 03/09/2019 which was 8% at this time. Recommended updating A1c. Wound cultures were obtained 09/26/2023 demonstrating MRSA positive. These cultures do reflect previous past cultures of MRSA positive from August and July 2023. Referral to Dr. oRbbins was placed and she did see him on 11/20/23. Patient finished previously prescribed doxycycline 100 mg twice daily for [address] Laughlin. Esqueda stage III Ulceration was debrided as noted in the clinical panel above. Prior to debridement she was locally anesthetized proximal to the ulcerative site consisting of 10 cc 1% lidocaine with epinephrine with block to the sural nerve and superficial peroneal nerve proximal to ulceration. This is noted to improve patient's tolerance of debridement today. Ulceration to the right lateral ankle measures post-debridement measures 1.2 cm x 1.0 cm x 0.2 cm. No localized signs of infection. Change was made in dressings for improvement of source control which has been achieved with Dakin's wet-to-dry dressing. We have previously discontinued the Dakin's. Collagen powder and PHMB dressing applied to wound bed and dressed with DSD. She will change daily. Tubigrip compression applied left lower extremity, 3M compression applied to right lower extremity. There is wax and waning progress in reduction in size of ulceration, but overall this continues to be slow. She would benefit from HBO therapy. Last appointment with infectious disease 11/20/23 and oral abx has been completed. She has completed 6 weeks of oral antibiotic treatment. There is noted visual improvement of the wound bed with more healthy granular tissue noted following application of the Dakin's and following antibiotics. There is noted improvement in appearance of tissue versus previous visit with improvement in her edema following the increase of her furosemide from 20 mg to 60 mg daily. There is also continued improvement in periwound maceration. Due to continued pain in the right lower extremity and needing pain pump medicine refilled I did issue short-term oral narcotic prescription, 12/12/2023. Discussed with her that additional medication needs to come from pain management. She is understanding of this. OARRS report was run on her prior to issuing prescription on 12/12/2023. Rx oxycodone acetaminophen 5/325mg number 28 tablets x 7 days. Instructed to take 1 every 8 hours for her pain. She attempted to ask for additional medication today but I have reminded her further prescriptions need to come from pain management. She reports seeing pain management later in the day on 12/26/23. With wound bed improved, we have moved to collagen based product as of 11/21/2023 and continue use of this. Due to significant amount of pain to palpation about the right lateral ankle and patient underwent MRI 10/11/[address] Laughlin. MRI on 10/11/2023 demonstrating lateral soft tissue swelling with skin thickening. There is focal defect consistent with wound. There is marrow edema of the lateral malleolus and distal fibula, series 7 image 8. Impression: Osteomyelitis of the lateral malleolus of the distal fibula with soft tissue wound and swelling. I have reviewed this MRI series and do note the increased marrow edema of the lateral malleolus and series 7 image 8 but also an image 9. This does appear to be at the outer portion of the cortex of the bone as the remaining images do not demonstrate increased signal. I did discuss these images in detail with the patient today in addition to findings with concern for osteomyelitis. I did discuss possible surgical options with the patient in detail 10/17/2023. All options were discussed with the patient in detail including risks and benefits of each procedure. Discussed risk of BKA with patient today. Patient is understanding of this but would like to save the right lower extremity. Also discussed possible treatment with IV antibiotics and aggressive surgical debridement of the soft tissue. Patient at this time would like to take time to consider options as she is on the oral antibiotic in addition to further discussion with infectious disease. Previous culture results of MRSA positive were reviewed. Due to the patient unable to get into infectious disease I did initiate outpatient oral antibiotic therapy on 10/17/2023. Rx doxycycline 100 mg twice daily x 14 days and Rx levofloxacin 750 mg daily x 14 days. Antibiotic stop date for first round 10/31/2023. This antibiotic regimen was extended due to next infectious disease appointment on 11/20/2023 with stop date of antibiotics 11/18/2023. Following seeing infectious disease he did extend antibiotic an additional 2 weeks. Recommended probiotic use with antibiotic and to take with food. She has finished the 6-week course of oral antibiotics as instructed and there is noted improvement in her wound with continued decrease in size and more healthy appearing tissue. Discussed entering HBO therapy to aid in continued healing of her ulceration site. Orders were placed for chest x-ray, EKG, and routine lab work prior to initiating approval for HBO. I have reviewed lab work demonstrating WBC 11.7 with left shift, ESR 7, CRP 4.72, hemoglobin 13.7, hematocrit 43.4, platelet 248, sodium 134, potassium 4.2, BUN 21, creatinine 1.18, glucose 317. HbgA1c 7.8%. Prealbumin 33.8. She has also had recurrent sinusitis and is currently taking oral antibiotic for otitis media. She states she has been chronic ear infection following most illnesses. Recommended ENT consult for possible tube placement prior to HBO dives. I do feel patient meets criteria for HBO therapy as ulceration has been present for greater than 6 months, has confirmed osteomyelitis via MRI as stated above, is a Esqueda III ulceration, has undergone applications of advanced wound care products without improvement with prior provider, and is completed 6 weeks of oral antibiotic treatment for her osteomyelitis. She meet with physician 12/26/23 for physical and clearance of HBO therapy, she was cleared but will meet with ENT on 01/10/24 for evaluation and likely tube placement prior to dives. Recommended adequate protein intake to aid in wound healing. Solomon supplementation is also recommended. Discussed with patient continue proper diabetic diet to aid in wound healing and provide good glycemic control. Discussed glycemic control and lowering of her blood sugar/A1c is important to aid in wound healing. She was again reminded to continue to wear proper fitting shoe gear and to ensure shoe gear is worn at all times for protection of the foot as she is diabetic with significant diminished sensation secondary to peripheral polyneuropathy. Discussed with patient the need for smoking cessation. Discussed impacts of wound healing from her smoking. Discussed with smoking blood flow is diminished to vital organs and extremities which is essential for her wound healing, in addition to affecting oxygen content/saturation of the bloodstream which is also essential for wound healing. Discussed smoking cessation aids and these were offered. Recommended continued discussion with her primary care physician to aid her in smoking cessation. 5 minutes total was spent on discussion 10/03/23. I discussed signs and symptoms of infection today. Discussed if she notices increasing redness of the skin about the ulcerative site moving up the leg, purulent drainage from the wound site, increasing foul odor from the wound, or if she develops fever greater than 101 degree accompanied by nausea, vomiting, chills that these are signs of a progressing infection and she should report to the ED for IV antibiotics and further evaluation. Patient voices understanding of this. The following work up and care recommendations were made: Dressing: Collagen Powder, Hydrogel, PHMB dressing with, dry sterile dressing to Right ankle. Bilateral unna boot compression. Do not get wet. Wash: Do not get wet Tissue growth optimization: Collagen powder/hydrogel Offload: Padded protective dressing of the lateral ankle. Recommended waffle offloading boot while in bed. Vascular: DP and PT pulses weakly palpable bilateral. Monophasic Doppler to left pedal pulses. Edema: Mild edema noted to the lower extremities. Recommended continued Tubigrip compression with elevation of lower extremities. Infection: Osteomyelitis confirmed of the distal lateral malleolus by MRI 10/11/2023. She does demonstrate positive MRSA cultures and finished doxycycline and levofloxacin. She has followed with infectious disease. Pain: May take [id number] Tylenol for discomfort Host factors: DM type II with peripheral polyneuropathy, MRSA positive cultures, edema, chronic tobacco abuse. She will return 01/06/2024 for change of her 3M compression to the right lower extremity with nursing team. I answered all the patient's questions. To return to the wound healing center in 1 week or call sooner if the patient has any questions or concerns.
--- NOTE | 2024-01-06 08:28 | WC ---
PHOTO 01/02/2024 RIGHT LATERAL ANKLE
== END 2024-01-12 23:59 | disposition home or self-care (01) ==
LOC: WC 08:30
PROVIDERS: PCP Internal Medicine; Referring Provider Internal Medicine; Visit Provider Student in an Organized Health Care Education/Training Program
DX: E11.621 Type 2 diabetes mellitus with foot ulcer (principal); L97.312 Non-pressure chronic ulcer of right ankle with fat layer exposed; M86.171 Other acute osteomyelitis, right ankle and foot; J44.9 Chronic obstructive pulmonary disease, unspecified; Z79.4 Long term (current) use of insulin; E11.42 Type 2 diabetes mellitus with diabetic polyneuropathy; E11.69 Type 2 diabetes mellitus with other specified complication; Z79.51 Long term (current) use of inhaled steroids; Z87.891 Personal history of nicotine dependence; Z79.01 Long term (current) use of anticoagulants; T14.8XXD Other injury of unspecified body region, subsequent encounter; E78.5 Hyperlipidemia, unspecified; M79.661 Pain in right lower leg
CPT/HCPCS: 11042; 29581; 36415; 71046; 80053; 83036; 84134; 85025; 85652; 86140; 93005; 99213; G0463

== ENCOUNTER 2024-02-06 08:45 | Outpatient (RCR) | payer MEDICARE, MEDICAID, SELFPAY ==
[2024-01-13 00:19] VITALS: BP 111/47; PULSE 67; RESP 18; TEMP 36.4
--- NOTE | 2024-01-13 14:58 | WC ---
HAVE BEEN ATTEMPTING TO FAX ORDERS/CALL [facility] 01/08, 01/09. PHONE/FAX SYSTEM WAS DOWN. FINALLY ABLE TO REACH NURSE JOHNSON TODAY BY PHONE. VERBAL ORDERS GIVEN AND FAXED FOR [facility] UNTIL PTS NEXT APPT ON 01/22. DID UPDATE ELIZABETH THAT THE FACILITY IS EXTREMELY HARD FOR CONTACT VIA PHONE AND FAX ON A REGULAR BASIS, EVEN WHEN THE PHONE SYSTEM IS WORKING. NO ONE ANSWERS PHONE. VOICEMAIL IS NOT AN OPTION AT [facility].
[2024-01-23 08:23] VITALS: BP 139/74; PULSE 79; RESP 20; TEMP 36.3
--- NOTE | 2024-01-23 08:34 | PN.PCM_ITS ---
History of Present Illness Date of Service: 01/23/24 Chief Complaint: Non healing right ankle ulcer History of Wound: Ms. Lam is a 63-year-old who was referred to this facility due to nonhealing right lateral ankle ulcer. Noted a year ago, started out as a bullae and subsequently opened up. She states that over the years, she has had alginate and collagen dressings done at her facility without any significant improvement. History of diabetes mellitus, she is not sure of her most recent A1c but states that it has ranged from 8-13. Also history of tobacco use, smokes daily. There is significant pain around the ulcer but she denies otherwise significant leg pain. Does not wear compression. Mostly sedentary but sleeps in the bed. She feels well otherwise, no chills, fever, nausea, vomiting or change in bowel habit reported. Subjective Subjective This is a 63-year-old female who continues to follow to the wound care center for a right lateral ankle ulceration. Patient is assisted by wheelchair today. 3M wrap in place to right leg. She did return for dressing changes with nursing here at wound center. She has seen ENT who states tube placement PRN. She has been cleared for HBO. She denies constitutional symptoms. Denies further complaints. Objective Data Objective Data Vital Signs: Vital Signs Temp Pulse Resp BP 97.3 F L 79 20 H 139/74 H 01/23/24 08:23 01/23/24 08:23 01/23/24 08:23 01/23/24 08:23 Physical Exam Const alert, oriented x3 and no apparent distress General Appearance: cooperative HEENT normocephalic Eyes General Eye: normal appearance of both eyes Neck General: normal visual inspection Lymph Lymphatic: no lymphadenopathy noted and no lymphedema noted Resp normal respiratory effort Cardio regular rate and regular rhythm Extremity Extremity Narrative: Vascular: DP and PT pulses palpable. Capillary fill time less than 5 seconds to digits. Normal temperature gradient. Hair growth is absent to digits/foot. Neurologic: Light touch sensation diminished. Gross sensation intact. Protective sensation is significantly diminished secondary to diabetic peripheral polyneuropathy. Dermatologic: Skin does appear well-hydrated. Bilateral lower extremity edema R > L continues improvement. Right lateral ankle demonstrates ulceration distal to the lateral malleolus to the level of the subcutaneous tissue with mixed fibrogranular layer and serosanguineous drainage with hyperpigmented rim. There is improvement in periwound maceration noted and granulation of the ulcer site. Ulceration demonstrates no malodor, no purulent drainage, no localized erythema, no increased temperature, no palpable fluctuance/bogginess, no visible abscess formation. Musculoskeletal: Patient is in wheelchair and does have decreased muscle strength of the lower extremities bilateral. Skin no rashes or lesions noted, skin turgor normal and no jaundice Neuro moves all extremities Debridement Note Debridement Note Wound debrided: Right lateral ankle Laterality: Right Wound Grade/Stage: Esqueda stage III Type of Debridement: Excisional debridement Anesthesia Used: 5% Lidocaine Gel and - (10 cc 1% lidocaine with epinephrine) Depth: Down to and including healthy tissue and in the subcutaneous layer Percentage of wound debrided: 100 Instrument Used: 5mm curette Tissue Removed: Fibrous, devitalized subcutaneous, biofilm, slough Severity: Fat Layer Exposed Amount of bleeding with debridement: Mild Bleeding Controlled with: Compression and gauze Patient tolerated procedure: Patient tolerated procedure well Post-Debridement Measurements and Additional Note: Post-Debridement Measurements/Treatment - Nurse 1 - General Ulcer Assessment Start: 01/14/24 11:59 Freq: Status: Active Protocol: WC.LOWRAHEEMT Activity Type Activity Date Activity User E-sign Co-sign Detail Recorded Client Recorded Date Recorded By Document 01/23/24 08:23 DL [email or web address] 01/23/24 08:28 DL 01/23/24 08:23 - Today's Visit Information Type of service Follow-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 Any new allergies or adverse reactions No Had a fall/change in ADL's that may No increase risk of falls Signs or symptoms of abuse and/or No neglect since last visit Have you been in the hospital since your No last visit? Has dressing in place as prescribed Yes Has compression in place as prescribed Yes Has offloadiing in place as prescribed Yes Experienced any changes in pain level or No management Pain Scale: 0-10 Numeric Is Patient Pain Free? Yes WC - Nurse 1 - General Ulcer Measurement Start: 01/14/24 11:59 Freq: Status: Active Protocol: Activity Type Activity Date Activity User E-sign Co-sign Detail Recorded Client Recorded Date Recorded By Document 01/23/24 08:23 DL [email or web address] 01/23/24 08:28 DL 01/23/24 08:23 Wound Center Nurse 1 #1 R Lat Ankle -Current Size (cm) - Length 0.1 -Current Size (cm) - Width 0.1 -Current Size (cm) - Depth 0.1 -Total Square Cm 0.01 -Photo Taken Yes -Ulcer Cleansing Soap and Water -Foul Odor after Cleansing No -Anesthetic Used 5% Lidocaine Gel Right Calf (cm) 35.5 Right Ankle (cm) 23 Assessment/Plan Assessment/Plan (1) Ankle osteomyelitis, right: CODE(S): M86.9 - Osteomyelitis, unspecified (2) 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: CODE(S): L97.312 - Non-pressure chronic ulcer of right ankle with fat layer exposed (3) Diabetes mellitus with diabetic polyneuropathy: CODE(S): E11.42 - Type 2 diabetes mellitus with diabetic polyneuropathy (4) Type 2 diabetes mellitus with foot ulcer: CODE(S): E11.621 - Type 2 diabetes mellitus with foot ulcer; L97.509 - Non-pressure chronic ulcer of other part of unspecified foot with unspecified severity QUALIFIERS: Diabetes mellitus penitentiary insulin use: without penitentiary use Qualified Code(s): E11.621 - Type 2 diabetes mellitus with foot ulcer; L97.509 - Non-pressure chronic ulcer of other part of unspecified foot with unspecified severity (5) Delayed wound healing: CODE(S): T14.8XXD - Other injury of unspecified body region, subsequent encounter (6) Pain in right lower leg: CODE(S): M79.661 - Pain in right lower leg (7) Hyperlipidemia: CODE(S): E78.5 - Hyperlipidemia, unspecified (8) Tobacco abuse: CODE(S): Z72.0 - Tobacco use PLAN: Plan Patient seen and evaluated Patient did have radiographs performed 09/26/2023 of the right ankle and foot demonstrating generalized osteopenia, soft tissue swelling, and mild arthritis of the first MTPJ and TNJ. Laboratory data from September 2023 demonstrates WBC 9.8, ESR 15, glucose 210. No recent A1c was performed with last A1c of record 03/09/2019 which was 8% at this time. Recommended updating A1c. Wound cultures were obtained 09/26/2023 demonstrating MRSA positive. These cultures do reflect previous past cultures of MRSA positive from August and July 2023. Referral to Dr. Robbins was placed and she did see him on 11/20/23. Patient finished previously prescribed doxycycline 100 mg twice daily for [address] Laughlin. Predebridement measurement: 0.4 cm x 0.4 cm x 0.2 cm Esqueda stage III Ulceration was debrided as noted in the clinical panel above. Prior to debridement she was locally anesthetized proximal to the ulcerative site consisting of 10 cc 1% lidocaine with epinephrine with block to the sural nerve and superficial peroneal nerve proximal to ulceration. This is noted to improve patient's tolerance of debridement today. Ulceration to the right lateral ankle measures post-debridement measures 0.5 cm x 0.5 cm x 0.2 cm. No localized signs of infection. Change was made in dressings for improvement of source control which has been achieved with Dakin's wet-to-dry dressing. Dakin's discontinued. Collagen powder and PHMB dressing applied to wound bed and dressed with DSD. She will change daily. Tubigrip compression applied left lower extremity, 3M compression applied to right lower extremity. There is wax and waning progress in reduction in size of ulceration, but overall this continues to be slow. She would benefit from HBO therapy. Last appointment with infectious disease 11/20/23 and oral abx has been completed. She has completed 6 weeks of oral antibiotic treatment. There is noted visual improvement of the wound bed with more healthy granular tissue noted following application of the Dakin's and following antibiotics. There is noted improvement in appearance of tissue versus previous visit with improvement in her edema following the increase of her furosemide from 20 mg to 60 mg daily. There is also continued improvement in periwound maceration. With wound bed improved, we have moved to collagen based product as of 11/21/2023 and continue use of this. Due to significant amount of pain to palpation about the right lateral ankle and patient underwent MRI 10/11/[address] Laughlin. MRI on 10/11/2023 demonstrating lateral soft tissue swelling with skin thickening. There is focal defect consistent with wound. There is marrow edema of the lateral malleolus and distal fibula, series 7 image 8. Impression: Osteomyelitis of the lateral malleolus of the distal fibula with soft tissue wound and swelling. I have reviewed this MRI series and do note the increased marrow edema of the lateral malleolus and series 7 image 8 but also an image 9. This does appear to be at the outer portion of the cortex of the bone as the remaining images do not demonstrate increased signal. I did discuss these images in detail with the patient today in addition to findings with concern for osteomyelitis. I did discuss possible surgical options with the patient in detail 10/17/2023. All options were discussed with the patient in detail including risks and benefits of each procedure. Discussed risk of BKA with patient today. Patient is understanding of this but would like to save the right lower extremity. Also discussed possible treatment with IV antibiotics and aggressive surgical debridement of the soft tissue. Patient at this time would like to take time to consider options as she is on the oral antibiotic in addition to further discussion with infectious disease. Previous culture results of MRSA positive were reviewed. Due to the patient unable to get into infectious disease I did initiate outpatient oral antibiotic therapy on 10/17/2023. Rx doxycycline 100 mg twice daily x 14 days and Rx levofloxacin 750 mg daily x 14 days. Antibiotic stop date for first round 10/31/2023. This antibiotic regimen was extended due to next infectious disease appointment on 11/20/2023 with stop date of antibiotics 11/18/2023. Following seeing infectious disease he did extend antibiotic an additional 2 weeks. Recommended probiotic use with antibiotic and to take with food. She has finished the 6-week course of oral antibiotics as instructed and there is noted improvement in her wound with continued decrease in size and more healthy appearing tissue. Discussed entering HBO therapy to aid in continued healing of her ulceration site. Orders were placed for chest x-ray, EKG, and routine lab work prior to initiating approval for HBO. I have reviewed lab work demonstrating WBC 11.7 with left shift, ESR 7, CRP 4.72, hemoglobin 13.7, hematocrit 43.4, platelet 248, sodium 134, potassium 4.2, BUN 21, creatinine 1.18, glucose 317. HbgA1c 7.8%. Prealbumin 33.8. She has also had recurrent sinusitis and is currently taking oral antibiotic for otitis media. She states she has been chronic ear infection following most illnesses. Recommended ENT consult for possible tube placement prior to HBO dives. I do feel patient meets criteria for HBO therapy as ulceration has been present for greater than 6 months, has confirmed osteomyelitis via MRI as stated above, is a Esqueda III ulceration, has undergone applications of advanced wound care products without improvement with prior provider, and is completed 6 weeks of oral antibiotic treatment for her osteomyelitis. She meet with physician 12/26/23 for physical and clearance of HBO therapy, she was cleared. She has seen ENT on 01/10/24 with recommendation of tube placement PRN. Recommended adequate protein intake to aid in wound healing. Solomon supplementation is also recommended. Discussed with patient continue proper diabetic diet to aid in wound healing and provide good glycemic control. Discussed glycemic control and lowering of her blood sugar/A1c is important to aid in wound healing. She was again reminded to continue to wear proper fitting shoe gear and to ensure shoe gear is worn at all times for protection of the foot as she is diabetic with significant diminished sensation secondary to peripheral polyneuropathy. Discussed with patient the need for smoking cessation. Discussed impacts of wound healing from her smoking. Discussed with smoking blood flow is diminished to vital organs and extremities which is essential for her wound healing, in addition to affecting oxygen content/saturation of the bloodstream which is also essential for wound healing. Discussed smoking cessation aids and these were offered. Recommended continued discussion with her primary care physician to aid her in smoking cessation. 5 minutes total was spent on discussion 10/03/23. I discussed signs and symptoms of infection today. Discussed if she notices increasing redness of the skin about the ulcerative site moving up the leg, purulent drainage from the wound site, increasing foul odor from the wound, or if she develops fever greater than 101 degree accompanied by nausea, vomiting, chills that these are signs of a progressing infection and she should report to the ED for IV antibiotics and further evaluation. Patient voices understanding of this. The following work up and care recommendations were made: Dressing: Collagen Powder, Hydrogel, PHMB dressing with, dry sterile dressing to Right ankle. Bilateral unna boot compression. Do not get wet. Wash: Do not get wet Tissue growth optimization: Collagen powder/hydrogel Offload: Padded protective dressing of the lateral ankle. Recommended waffle offloading boot while in bed. Vascular: DP and PT pulses weakly palpable bilateral. Monophasic Doppler to left pedal pulses. Edema: Mild edema noted to the lower extremities. Recommended continued Tubigrip compression with elevation of lower extremities. Infection: Osteomyelitis confirmed of the distal lateral malleolus by MRI 10/11/2023. She does demonstrate positive MRSA cultures and finished doxycycline and levofloxacin. She has followed with infectious disease. Pain: May take [id number] Tylenol for discomfort Host factors: DM type II with peripheral polyneuropathy, MRSA positive cultures, edema, chronic tobacco abuse. She will return 01/27/2024 for change of her 3M compression to the right lower extremity with nursing team and again on 01/30/24. I answered all the patient's questions. To return to the wound healing center in 2 weeks or call sooner if the patient has any questions or concerns.
--- NOTE | 2024-02-06 08:50 | PCM.WC.PN ---
History of Present Illness Date of Service: 02/06/24 Chief Complaint: Non healing right ankle ulcer History of Wound: Ms. Lam is a 63-year-old who was referred to this facility due to nonhealing right lateral ankle ulcer. Noted a year ago, started out as a bullae and subsequently opened up. She states that over the years, she has had alginate and collagen dressings done at her facility without any significant improvement. History of diabetes mellitus, she is not sure of her most recent A1c but states that it has ranged from 8-13. Also history of tobacco use, smokes daily. There is significant pain around the ulcer but she denies otherwise significant leg pain. Does not wear compression. Mostly sedentary but sleeps in the bed. She feels well otherwise, no chills, fever, nausea, vomiting or change in bowel habit reported. Subjective Subjective This is a 63-year-old female who continues to follow to the wound care center for a right lateral ankle ulceration. Patient is assisted by wheelchair today. 3M wrap in place to right leg, states facility did not change the dressing and this has been in place since last visit 2 weeks ago. She has been cleared for HBO. She denies constitutional symptoms. Denies further complaints. Objective Data Objective Data Vital Signs: Vital Signs Temp Pulse Resp BP 97.3 F L 79 20 H 139/74 H 01/23/24 08:23 01/23/24 08:23 01/23/24 08:23 01/23/24 08:23 Physical Exam Const alert, oriented x3 and no apparent distress General Appearance: cooperative HEENT normocephalic Eyes General Eye: normal appearance of both eyes Neck General: normal visual inspection Lymph Lymphatic: no lymphadenopathy noted and no lymphedema noted Resp normal respiratory effort Cardio regular rate and regular rhythm Extremity Extremity Narrative: Vascular: DP and PT pulses palpable. Capillary fill time less than 5 seconds to digits. Normal temperature gradient. Hair growth is absent to digits/foot. Neurologic: Light touch sensation diminished. Gross sensation intact. Protective sensation is significantly diminished secondary to diabetic peripheral polyneuropathy. Dermatologic: Skin does appear well-hydrated. Right lateral ankle demonstrates ulceration distal to the lateral malleolus to the level of the subcutaneous tissue with mixed fibrogranular layer and serosanguineous drainage with hyperpigmented rim. There is continued improvement in periwound maceration noted and granulation of the ulcer site. Ulceration demonstrates no malodor, no purulent drainage, no localized erythema, no increased temperature, no palpable fluctuance/bogginess, no visible abscess formation. Musculoskeletal: Patient is in wheelchair and does have decreased muscle strength of the lower extremities bilateral. Skin no rashes or lesions noted, skin turgor normal and no jaundice Neuro moves all extremities Debridement Note Debridement Note No debridement was completed: No debridement was completed today Post-Debridement Measurements and Additional Note: Post-Debridement Measurements/Treatment WC - Nurse 1 - General Ulcer Assessment Start: 01/14/24 11:59 Freq: Status: Active Protocol: CLOVIS Activity Type Activity Date Activity User E-sign Co-sign Detail Recorded Client Recorded Date Recorded By Document 01/23/24 08:23 DL [id number] 01/23/24 08:28 DL 01/23/24 08:23 WC - Today's Visit Information Type of service 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 Any new allergies or adverse reactions No Had a fall/change in ADL's that may No increase risk of falls Signs or symptoms of abuse and/or No neglect since last visit Have you been in the hospital since your No last visit? Has dressing in place as prescribed Yes Has compression in place as prescribed Yes Has offloadiing in place as prescribed Yes Experienced any changes in pain level or No management Pain Scale: 0-10 Numeric Is Patient Pain Free? Yes - Nurse 1 - General Ulcer Measurement Start: 01/14/24 11:59 Freq: Status: Active Protocol: Activity Type Activity Date Activity User E-sign Co-sign Detail Recorded Client Recorded Date Recorded By Document 01/23/24 08:23 DL 10..25.7 01/23/24 08:28 DL 01/23/24 08:23 Wound Center Nurse 1 #1 R Lat Ankle -Current Size (cm) - Length 0.1 -Current Size (cm) - Width 0.1 -Current Size (cm) - Depth 0.1 -Total Square Cm 0.01 -Photo Taken Yes -Ulcer Cleansing Soap and Water -Foul Odor after Cleansing No -Anesthetic Used 5% Lidocaine Gel Right Calf (cm) 35.5 Right Ankle (cm) 23 WC - Nurse 2 - General Ulcer CM Notes Start: 01/14/24 11:59 Freq: Status: Active Protocol: Activity Type Activity Date Activity User E-sign Co-sign Detail Recorded Client Recorded Date Recorded By Document 01/23/24 08:39 [facility] [email or web address] 01/23/24 08:54 [facility] 01/23/24 08:39 Wound Center Nurse 2 #1 R Lat Ankle -Time 08:42 -Correct Patient Yes -Correct Side, Site, Position Yes -Correct Procedure Yes -Procedure Performed Yes -Type of Procedure Debridement -Clinical Debridement Subcutaneous -Tissue Removed Subcutaneous -Post Debridement (cm) - Length 0.5 -Post Debridement (cm) - Width 0.5 -Post Debridement (cm) - Depth 0.2 -Total Square (Post) (cm) 0.25 -Area of Debridement (cm) - Length 0.5 -Area of Debridement (cm) - Width 0.5 -Total Square (Area) (cm) 0.25 -Tunneling No -Undermining/Tunneling No -Circular Undermining No -Wound/Ulcer Outcome Not Healed -Ulcer Cleansing Rinsed/ Irrigated with Saline -Foul Odor after Cleansing No -Bioengineered Tissue No -Injectable Lidocaine w/ Epi (%) 1 -Injectable Lidocaine w/ Epi (mls) 10 -Bleeding Controlled with Pressure -Treatment Response Procedure Tolerated Well -Debridement - Subq, 1st 20sq cm Yes Pain Scale: 0-10 Numeric Is Patient Pain Free? No R ANKLE WOUND -Description Sharp,Burning -Intensity 8 -Duration (hours) Chronic -Pain Behavior Facial Grimacing -Alleviating Factors/Interventions Medication -Comments injectable lidocaine used in clinic today WC - Nurse 3 - General Ulcer D/C NN Start: 01/14/24 11:59 Freq: Status: Active Protocol: Activity Type Activity Date Activity User E-sign Co-sign Detail Recorded Client Recorded Date Recorded By Document 01/23/24 08:54 BMF 10..25.7 01/23/24 08:55 BMF Edit Result 01/23/24 08:54 BMF (1) 10...7 01/23/24 09:15 BMF (1) #1 R Lat Ankle - AMD Dressing 4x4 1 => 2 Left - Tubular Bandage => Single Layer - Size of Tubigrip Used => Size E - Size E ($) => 1 01/23/24 08:54 Wound Care Center Nurse 3 #1 R Lat Ankle -Ulcer Cleansing Rinsed/ Irrigated with Saline -Foul Odor after Cleansing No -Primary Dressing Applied AMD Dressing 4x4,Collagen Powder ($) -Other Dressing per mt rn -AMD Dressing 4x4 2 Left -Tubular Bandage Single Layer -Size of Tubigrip Used Size E -Size E ($) 1 Right -Multi-Layered Wrap Application Multi-Layer Comp - Right ($ ) Treatment Response Procedure Tolerated Well Pain Scale: 0-10 Numeric Is Patient Pain Free? Yes WC - Visit Discharge Discharge Condition Stable Ambulatory Status Wheelchair Transportation ecf Facility Type Vibration Technician Care Facility Assessment/Plan Assessment/Plan (1) Ankle osteomyelitis, right: CODE(S): M86.9 - Osteomyelitis, unspecified (2) 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: CODE(S): L97.312 - Non-pressure chronic ulcer of right ankle with fat layer exposed (3) Diabetes mellitus with diabetic polyneuropathy: CODE(S): E11.42 - Type 2 diabetes mellitus with diabetic polyneuropathy (4) Type 2 diabetes mellitus with foot ulcer: CODE(S): E11.621 - Type 2 diabetes mellitus with foot ulcer; L97.509 - Non-pressure chronic ulcer of other part of unspecified foot with unspecified severity QUALIFIERS: 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: without senior living use Qualified Code(s): E11.621 - Type 2 diabetes mellitus with foot ulcer; L97.509 - Non-pressure chronic ulcer of other part of unspecified foot with unspecified severity (5) Delayed wound healing: CODE(S): T14.8XXD - Other injury of unspecified body region, subsequent encounter (6) Pain in right lower leg: CODE(S): M79.661 - Pain in right lower leg (7) Hyperlipidemia: CODE(S): E78.5 - Hyperlipidemia, unspecified (8) Tobacco abuse: CODE(S): Z72.0 - Tobacco use PLAN: Plan Patient seen and evaluated Patient did have radiographs performed 09/26/2023 of the right ankle and foot demonstrating generalized osteopenia, soft tissue swelling, and mild arthritis of the first MTPJ and TNJ. Laboratory data from September 2023 demonstrates WBC 9.8, ESR 15, glucose 210. No recent A1c was performed with last A1c of record 03/09/2019 which was 8% at this time. Recommended updating A1c. Wound cultures were obtained 09/26/2023 demonstrating MRSA positive. These cultures do reflect previous past cultures of MRSA positive from August and July 2023. Referral to Dr. Robbins was placed and she did see him on 11/20/23. Patient finished previously prescribed doxycycline 100 mg twice daily for [address] Laughlin. Predebridement measurement: 0.1 cm x 0.1 cm x 0.1 cm Esqueda stage III Ulceration was not debrided as noted in the clinical panel above. Prior to debridement on 01/23/24 she was locally anesthetized proximal to the ulcerative site consisting of 10 cc 1% lidocaine with epinephrine with block to the sural nerve and superficial peroneal nerve proximal to ulceration. This is noted to improve patient's tolerance of debridement today. Ulceration to the right lateral ankle measures post-debridement measures 0.5 cm x 0.5 cm x 0.2 cm, but now currently decreased to 0.1cm x 0.1cm x 0.1cm. No localized signs of infection. Change was made in dressings for improvement of source control which has been achieved with Dakin's wet-to-dry dressing. Dakin's discontinued. Collagen powder and PHMB dressing applied to wound bed and dressed with DSD. She will change daily. Tubigrip compression applied left lower extremity, 3M compression applied to right lower extremity. There is wax and waning progress in reduction in size of ulceration, but overall this continues to be slow. She would benefit from HBO therapy. Last appointment with infectious disease 11/20/23 and oral abx has been completed. She has completed 6 weeks of oral antibiotic treatment. There is noted visual improvement of the wound bed with more healthy granular tissue noted following application of the Dakin's and following antibiotics. There is noted improvement in appearance of tissue versus previous visit with improvement in her edema following the increase of her furosemide from 20 mg to 60 mg daily. There is also continued improvement in periwound maceration. With wound bed improved, we have moved to collagen based product as of 11/21/2023 and continue use of this. Due to significant amount of pain to palpation about the right lateral ankle and patient underwent MRI 10/11/[address] Laughlin. MRI on 10/11/2023 demonstrating lateral soft tissue swelling with skin thickening. There is focal defect consistent with wound. There is marrow edema of the lateral malleolus and distal fibula, series 7 image 8. Impression: Osteomyelitis of the lateral malleolus of the distal fibula with soft tissue wound and swelling. I have reviewed this MRI series and do note the increased marrow edema of the lateral malleolus and series 7 image 8 but also an image 9. This does appear to be at the outer portion of the cortex of the bone as the remaining images do not demonstrate increased signal. I did discuss these images in detail with the patient today in addition to findings with concern for osteomyelitis. I did discuss possible surgical options with the patient in detail 10/17/2023. All options were discussed with the patient in detail including risks and benefits of each procedure. Discussed risk of BKA with patient. Patient is understanding of this but would like to save the right lower extremity. Also discussed possible treatment with IV antibiotics and aggressive surgical debridement of the soft tissue. Patient at this time would like to take time to consider options as she is on the oral antibiotic in addition to further discussion with infectious disease. Previous culture results of MRSA positive were reviewed. Due to the patient unable to get into infectious disease I did initiate outpatient oral antibiotic therapy on 10/17/2023. Rx doxycycline 100 mg twice daily x 14 days and Rx levofloxacin 750 mg daily x 14 days. Antibiotic stop date for first round 10/31/2023. This antibiotic regimen was extended due to next infectious disease appointment on 11/20/2023 with stop date of antibiotics 11/18/2023. Following seeing infectious disease he did extend antibiotic an additional 2 weeks. Recommended probiotic use with antibiotic and to take with food. She has finished the 6-week course of oral antibiotics as instructed and there is noted improvement in her wound with continued decrease in size and more healthy appearing tissue. Discussed entering HBO therapy to aid in continued healing of her ulceration site. Orders were placed for chest x-ray, EKG, and routine lab work prior to initiating approval for HBO. I have reviewed lab work demonstrating WBC 11.7 with left shift, ESR 7, CRP 4.72, hemoglobin 13.7, hematocrit 43.4, platelet 248, sodium 134, potassium 4.2, BUN 21, creatinine 1.18, glucose 317. HbgA1c 7.8%. Prealbumin 33.8. She has also had recurrent sinusitis and is currently taking oral antibiotic for otitis media. She states she has been chronic ear infection following most illnesses. Recommended ENT consult for possible tube placement prior to HBO dives. I do feel patient meets criteria for HBO therapy as ulceration has been present for greater than 6 months, has confirmed osteomyelitis via MRI as stated above, is a Esqueda III ulceration, has undergone applications of advanced wound care products without improvement with prior provider, and is completed 6 weeks of oral antibiotic treatment for her osteomyelitis. She meet with physician 12/26/23 for physical and clearance of HBO therapy, she was cleared. She has seen ENT on 01/10/24 with recommendation of tube placement PRN. Recommended adequate protein intake to aid in wound healing. Solomon supplementation is also recommended. Discussed with patient continue proper diabetic diet to aid in wound healing and provide good glycemic control. Discussed glycemic control and lowering of her blood sugar/A1c is important to aid in wound healing. She was again reminded to continue to wear proper fitting shoe gear and to ensure shoe gear is worn at all times for protection of the foot as she is diabetic with significant diminished sensation secondary to peripheral polyneuropathy. Discussed with patient the need for smoking cessation. Discussed impacts of wound healing from her smoking. Discussed with smoking blood flow is diminished to vital organs and extremities which is essential for her wound healing, in addition to affecting oxygen content/saturation of the bloodstream which is also essential for wound healing. Discussed smoking cessation aids and these were offered. Recommended continued discussion with her primary care physician to aid her in smoking cessation. 5 minutes total was spent on discussion 10/03/23. I discussed signs and symptoms of infection today. Discussed if she notices increasing redness of the skin about the ulcerative site moving up the leg, purulent drainage from the wound site, increasing foul odor from the wound, or if she develops fever greater than 101 degree accompanied by nausea, vomiting, chills that these are signs of a progressing infection and she should report to the ED for IV antibiotics and further evaluation. Patient voices understanding of this. The following work up and care recommendations were made: Dressing: Collagen Powder, Hydrogel, PHMB dressing with, dry sterile dressing to Right ankle. Bilateral unna boot compression. Do not get wet. Wash: Do not get wet Tissue growth optimization: Collagen powder/hydrogel Offload: Padded protective dressing of the lateral ankle. Recommended waffle offloading boot while in bed. Vascular: DP and PT pulses weakly palpable bilateral. Monophasic Doppler to left pedal pulses. Edema: Mild edema noted to the lower extremities. Recommended continued Tubigrip compression with elevation of lower extremities. Infection: Osteomyelitis confirmed of the distal lateral malleolus by MRI 10/11/2023. She does demonstrate positive MRSA cultures and finished doxycycline and levofloxacin. She has followed with infectious disease. Pain: May take [id number] Tylenol for discomfort Host factors: DM type II with peripheral polyneuropathy, MRSA positive cultures, edema, chronic tobacco abuse. She will return 02/07/2024 for change of her 3M compression to the right lower extremity with nursing team. I answered all the patient's questions. To return to the wound healing center in 1 week or call sooner if the patient has any questions or concerns.
[2024-02-06 08:59] VITALS: BP 116/65; PULSE 95; RESP 20; TEMP 36.1
--- NOTE | 2024-02-12 11:00 | WC ---
PHOTO RIGHT LATERAL ANKLE 02/06/24
== END 2024-02-12 23:59 | disposition home or self-care (01) ==
LOC: WC 08:45
PROVIDERS: PCP Internal Medicine; Referring Provider Internal Medicine; Visit Provider Student in an Organized Health Care Education/Training Program
DX: E11.621 Type 2 diabetes mellitus with foot ulcer (principal); L97.312 Non-pressure chronic ulcer of right ankle with fat layer exposed; L97.509 Non-pressure chronic ulcer of other part of unspecified foot with unspecified severity; M86.171 Other acute osteomyelitis, right ankle and foot; J44.9 Chronic obstructive pulmonary disease, unspecified; E11.42 Type 2 diabetes mellitus with diabetic polyneuropathy; E11.69 Type 2 diabetes mellitus with other specified complication; E78.5 Hyperlipidemia, unspecified; M79.661 Pain in right lower leg; T14.8XXD Other injury of unspecified body region, subsequent encounter; Z79.51 Long term (current) use of inhaled steroids; Z79.01 Long term (current) use of anticoagulants; Z87.891 Personal history of nicotine dependence
CPT/HCPCS: 11042; 29581; 99213; G0463

== ENCOUNTER 2024-02-07 06:44 | Day surgery (SDC) | payer MEDICARE, MEDICAID, SELFPAY ==
[2024-02-07] VITALS (9 sets, daily range): BP systolic 122–158; BP diastolic 68–91; PULSE 101–108; RESP 16–18; TEMP 36.1–36.5; O2SAT 96–97; BMI 37.2
--- NOTE | 2024-02-07 07:16 | PRE.ANES_ITS ---
ASA Classification* ASA Classification ASA Classification: 3 Assessment & Plan Anesthesia* Anesthesia Assessment Anesthesia Assessment: Discussed sedation and/or anesthesia options, risks, benefits, and alternatives with patient/parents/legal guardian/POA. Questions invited. The patient/parents/legal guardian/POA seems to understand and agrees to proceed with anesthesia plan. Reviewed the physical assessment, medical history, allergy history and patient home medications list prior to surgery/procedure/anesthetic and documented any changes. Performed airway and anesthesia risk assessments. Anesthesia Type Anesthesia Type: MAC Anesthesia Focused Assessment* Temperature: 97 F Pulse Rate: 103 Blood Pressure: 124/81 Respiratory Rate: 16 Pulse Ox: 96 Airway Assessment Mouth opens: >3 cm Mallampati Score: II Focused Labs Anesthesia Preop lab: CBC WBC 11.5 K/mm3 (4.4-11.0) H 12/19/23 11:18 RBC 4.75 M/mm3 (4.2-5.4) 12/19/23 11:18 Hgb 13.7 g/dL (12.0-15.0) 12/19/23 11:18 Hct 43.4 % (37-47) 12/19/23 11:18 Plt Count 248 K/mm3 (150-450) 12/19/23 11:18 CHEMISTRY Potassium 4.2 mmol/L (3.5-5.1) 12/19/23 11:18 Sodium 134 mmol/L (136-145) L 12/19/23 11:18 BUN 21 mg/dL (7-18) H 12/19/23 11:18 Creatinine 1.18 mg/dL (0.55-1.02) H 12/19/23 11:18 Glucose 317 mg/dL (74-106) H 12/19/23 11:18 POC Glucose 336 mg/dL (70-110) H 03/11/19 16:39 TSH 1.00 uIU/mL (0.358-3.74) 06/20/18 11:29 COAG PT 14.1 SECONDS (11.7-14.9) 03/10/19 05:37 Pre-Assessment Diagnosis/Proposed Procedure Planned Operative Procedure(s): BATTERY CHANGE PAIN PUMP Anesthesia History 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 When Was Last Pacemaker Check QUESTION #4 FULL TEXT: You/Your Family Experience fever (hyperthermia) with Anesthesia Last Oral Intake Last Oral intake: Last Oral Intake NPO since 00:00 02/07/24 07:05 Meds taken in AM with sips of water? Meds patient instructed to take am of surgery PONV PONV - embedded systems software developer: PONV - embedded systems software developer Female Yes 01/30/24 12:09 HX of Motion Sickness No 01/30/24 12:09 HX of N/V After Surgery No 01/30/24 12:09 Non-Smoker No 01/30/24 12:09 Duration of Surgery greater No 01/30/24 12:09 than 60 minutes Number of Risk Factors 1 01/30/24 12:09 PONV Score Low Risk 01/30/24 12:09 Height & Weight Height & Weight: Anesthesia: Height & Weight Height 5 ft 3 in 02/07/24 07:05 Weight: 95.254 kg 02/07/24 07:05 Body Mass Index (BMI) 37.2 02/07/24 07:05 Respiratory Assessment Respiratory Assessment - embedded systems software developer: Respiratory Tract Infection Hx - embedded systems software developer Hx Respiratory Tract Infection No 01/30/24 12:09 STOP Sleep Apnea STOP Sleep Apnea - embedded systems software developer: STOP Sleep Apnea - embedded systems software developer Hx Hypertension Yes 01/30/24 12:09 Hx Sleep Apnea No 01/30/24 12:09 CPAP No 03/10/19 13:26 BIPAP No 03/10/19 05:48 Do you snore loudly (louder No 01/30/24 12:09 than talking or can be heard Do you often feel tired/ No 01/30/24 12:09 fatigued/ sleepy during daytime? Has anyone observed you stop No 01/30/24 12:09 breathing during sleep? STOP Results Negative 01/30/24 12:09 QUESTION #5 FULL TEXT : Do you snore loudly (louder than talking or can be heard through closed doors)? Tobacco Use History Tobacco Use History - embedded systems software developer: Tobacco Use History - embedded systems software developer Tobacco Use Smoking Status Current every day smoker 01/30/24 12:09 Hx Tobacco Use Yes 01/30/24 12:09 Years Smoking Packs Smoked per Day Smoking Cessation Date was within the last 15 years Hx Smoking Cessation Date Hx Smoking Cessation No 01/30/24 12:09 Counseling Hematologic Medial History Hematologic Hx - embedded systems software developer: Hematologic Medical Hx - can slider Hx of Blood Transfusion No 01/30/24 12:09 Hx of Transfusion in last 3 No 01/30/24 12:09 Months Date of Last Transfusion (if within last 3 months) Ever experience any problems No 01/30/24 12:09 with transfusion(s)? Specify any problems Hx of Preganancy in last 3 No 01/30/24 12:09 Months Nurse Filling Out Transfusion DSCHRIBER 01/30/24 12:09 & Questions: Date: 01/30/24 01/30/24 12:09 Time: 12:13 01/30/24 12:09 Patient unable to answer at this time (ie. confused, unrespo /Reproduction History /Reproductive History - embedded systems software developer: /Reproductive Hx- embedded systems software developer Hx Now No 01/30/24 12:09 Gestational Age (in weeks): EDC: Hx Hx Para Hx Section SAB No 01/30/24 12:09 Active Medications Active Medications: Current Medications Generic Name Dose Route Start Last Admin Trade Name Freq PRN Reason Stop Dose Admin Lactated Ringer's 1,000 mls @ 15 mls/hr 02/07/24 07:00 IV .Q48H NIURKA PFSH Medical History (Updated 01/30/24 @ 12:23 by Haylee Lee) Lives in retirement Hx of fracture of hip Wears glasses Wears dentures Post-menopausal Depression Alcohol use Substance abuse Open wound Uses wheelchair Arthritis High cholesterol Restless legs Back pain Smoker Asthma Shortness of breath on exertion History of edema Tobacco abuse Insulin dependent diabetes mellitus 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 GERD (gastroesophageal reflux disease) Anxiety Schizophrenia Hyperlipidemia Insomnia Neuralgia and neuritis Spondylosis Mild asthma Cerebral vascular disease Hypertension Home Medications ?Medication ?Instructions ?Recorded ?Last Taken ?Type amlodipine 5 mg tablet 5 mg PO DAILY blood pressure 03/08/19 03/08/19 History ondansetron HCl 4 mg tablet 4 mg PO Q6H PRN PRN Nausea 03/08/19 Unknown History prazosin 1 mg capsule 1 mg PO QHS nightmares 03/08/19 03/07/19 20:00 History albuterol sulfate 2.5 mg/3 mL 2.5 mg inhalation Q4H PRN SOB 07/29/21 Unknown History (0.083 %) solution for nebulization apixaban 5 mg tablet (Eliquis) 5 mg PO BID 07/29/21 02/06/24 History lurasidone 80 mg tablet (Latuda) 80 mg PO DAILY 07/29/21 Unknown History naloxegol 25 mg tablet (Movantik) 25 mg PO DAILY 07/29/21 Unknown History pantoprazole 40 mg tablet,delayed 40 mg PO DAILY 07/29/21 Unknown History release acetaminophen 325 mg tablet 650 mg PO Q6H PRN PRN fever or pain 12/18/22 Unknown History aluminum-mag hydroxide-simethicone 5 ml PO .Q3H PRN PRN indigestion 12/18/22 Unknown History 400 mg-400 mg-40 mg/5 mL oral susp (Maalox Maximum Strength) atenolol 25 mg tablet 25 mg PO DAILY 12/18/22 Unknown History atorvastatin 80 mg tablet 40 mg PO QHS cholesterol 12/18/22 Unknown History baclofen 5 mg tablet 5 mg PO TID 12/18/22 Unknown History benzonatate 100 mg capsule 100 mg PO Q8H PRN cough 12/18/22 Unknown History bisacodyl 10 mg rectal suppository 10 mg CO .Q24 PRN PRN constipation 12/18/22 Unknown History (Dulcolax (bisacodyl)) bisacodyl 5 mg tablet,delayed 5 mg PO Q8H PRN PRN constipation 12/18/22 Unknown History release (Dulcolax (bisacodyl)) cholecalciferol (vitamin D3) 125 125 mcg PO DAILY 12/18/22 Unknown History mcg (5,000 unit) capsule diclofenac sodium 1 % topical gel 2 g topical Q8H PRN PRN pain 12/18/22 Unknown History epinephrine 0.3 mg/0.3 mL 0.3 mg IM Q5-15M PRN anaphylaxis 12/18/22 Unknown History injection, auto-injector (EpiPen) flash glucose sensor (FreeStyle 12/18/22 Unknown History Cynthia 2 Sensor kit) fluticasone fur. 200 mcg-umeclid 1 inh inhalation DAILY 12/18/22 Unknown History 62.5 mcg-vilant 25 mcg inhalat.powder (Trelegy Ellipta) fluticasone propionate 50 2 spray intranasal DAILY 12/18/22 Unknown History mcg/actuation nasal spray,suspension (Flonase Allergy Relief) guaifenesin 100 mg/5 mL oral liquid 200 mg PO Q4H PRN cough 12/18/22 Unknown History hydroxyzine pamoate 25 mg capsule 25 mg PO QHS 12/18/22 Unknown History (Vistaril) insulin glargine U-300 conc 300 100 unit subcut BID 12/18/22 Unknown History unit/mL (1.5 mL) subcutaneous pen ([employer] SoloStar U-300 Insulin) ipratropium 0.5 mg-albuterol 3 mg 3 ml inhalation BID PRN shortness 12/18/22 Unknown History (2.5 mg base)/3 mL nebulization of breath soln ipratropium 20 mcg-albuterol 100 1 puff inhalation Q6H PRN 12/18/22 Unknown History mcg/actuation mist for inhalation shortness of breath or wheezing (Combivent Respimat) ipratropium bromide 21 mcg (0.03 2 spray intranasal BID 12/18/22 Unknown History %) nasal spray lisinopril 2.5 mg tablet 2.5 mg PO DAILY 12/18/22 Unknown History loratadine 10 mg tablet (Claritin) 10 mg PO DAILY 12/18/22 Unknown History melatonin 3 mg capsule 3 mg PO HS 12/18/22 Unknown History metformin 500 mg tablet 500 mg PO BID 12/18/22 02/07/24 05:30 History montelukast 10 mg tablet 10 mg PO DAILY 12/18/22 Unknown History naloxone 0.4 mg/mL injection 0.2 mg subcut ONCE PRN opioid 12/18/22 Unknown History solution reversal olanzapine 10 mg tablet (Zyprexa) 10 mg PO QPM 12/18/22 Unknown History polyethylene glycol 3350 17 17 g PO DAILY PRN constipation 12/18/22 Unknown History gram/dose oral powder (Miralax) tizanidine 2 mg tablet 2 mg PO Q12H PRN muscle spasticity 12/18/22 Unknown Histo ry duloxetine 60 mg capsule,delayed 60 mg PO BID 01/16/23 Unknown History release (Cymbalta) potassium chloride 20 mEq 20 meq PO DAILY 01/16/23 Unknown History tablet,extended release pregabalin 100 mg capsule 100 mg PO BID 01/16/23 Unknown History furosemide 20 mg tablet 60 mg (3 x 20 mg) PO QAM #90 tabs 11/24/23 Unknown Rx Lactobacillus rhamnosus GG 10 1 cap PO BID 11/27/23 Unknown History billion cell capsule (Culturelle) buspirone 5 mg tablet 5 mg PO BID 11/27/23 Unknown History insulin lispro 100 unit/mL 1 sliding scale dose subcut TID 11/27/23 Unknown History subcutaneous pen (Humalog KwikPen (U-100) Insulin) insulin lispro 100 unit/mL 44 unit subcut LUNCH 11/27/23 Unknown History subcutaneous pen (Humalog KwikPen (U-100) Insulin) loperamide 2 mg capsule 4 mg PO BID PRN loose stool 11/27/23 Unknown History (Anti-Diarrheal (loperamide)) carboxymethylcellulose sodium 0.5 1 drp EACH EYE BID 01/30/24 Unknown History % eye drops (Refresh Tears) cyclosporine 0.05 % eye drops in a 1 drp EACH EYE Q12H 01/30/24 Unknown History dropperette (Restasis) insulin glargine U-300 conc 300 100 unit subcut BID 01/30/24 Unknown History unit/mL (3 mL) subcutaneous pen ([employer] Max U-300 SoloStar) insulin lispro 100 unit/mL 44 unit subcut DAILY 01/30/24 Unknown History subcutaneous pen (Humalog KwikPen (U-100) Insulin) insulin lispro 100 unit/mL 48 unit subcut DINNER 01/30/24 Unknown History subcutaneous pen (Humalog KwikPen (U-100) Insulin) oxycodone-acetaminophen 5 mg-325 1 tab PO Q12H PRN PRN pain 01/30/24 Unknown History mg tablet semaglutide 0.25 mg or 0.5 mg (2 0.5 mg subcut FR 01/30/24 Unknown History mg/1.5 mL) subcutaneous pen injector (Ozempic) semaglutide 0.25 mg or 0.5 mg (2 0.25 mg subcut .Saturday01/30/24 Unknown History mg/3 mL) subcutaneous pen injector (Ozempic) Allergy/AdvReac Type Severity Reaction Status Date / Time apricot Allergy Unknown PT UNSURE Verified 02/07/24 07:02 OF REACTION BCG (Bacillus Allergy Unknown Other Verified 02/07/24 07:02 [place]met[place]-Zohra) vacc bee venom protein (honey Allergy Unknown Other Verified 02/07/24 07:02 bee) (bee sting) corn Allergy Unknown Other Verified 02/07/24 07:02 Milk Containing Products Allergy Unknown Other Verified 02/07/24 07:02 (Dairy) peas Allergy Unknown Other Verified 02/07/24 07:02 tomato Allergy Unknown Other Verified 02/07/24 07:02 Iodinated Contrast Media Allergy Hives Verified 02/07/24 07:02 (Iodinated Contrast Media - IV Dye) amoxicillin trihydrate (From AdvReac Itching Verified 02/07/24 07:02 Augmentin) hydrocodone (From Vicodin) AdvReac Unknown Verified 02/07/24 07:02 potassium clavulanate (From AdvReac Itching Verified 02/07/24 07:02 Augmentin) prednisone AdvReac Unknown Verified 02/07/24 07:02 shellfish derived AdvReac Itching Verified 02/07/24 07:02 Surgical History (Updated 11/27/23 @ 09:30 by Nina Mckeon) History of History of tubal ligation History of hysterectomy History of cholecystectomy History of appendectomy S/P right rotator cuff repair Social History Smoking Status: Current every day smoker tobacco type: cigarettes Review of Systems (Anesthesia) ROS Narrative System reviewed and no additional complaints, except as documented.
[2024-02-07] MEDS: Lactated Ringers 1,000 ML 15 ML IV ×2 (07:17→09:28)
[2024-02-07 07:37] LABS: Bedside Glucose 251 mg/dL (74-106)
[2024-02-07] MEDS: Vancomycin IV 1,000 MG/200 ML BAG 200 MG IV (07:44)
[2024-02-07] MEDS: Lidocaine 1% /Epi 1:100 (50ml) 50 ML VIAL (08:30)
[2024-02-07] MEDS: 0.9% Normal Saline (Pres. free 10 ML Vial (08:50)
[2024-02-07] MEDS: NORMAL SALINE INTRATH (09:03)
[2024-02-07] MEDS: MORPHINE INTRATH (09:03)
--- NOTE | 2024-02-07 10:26 | PCM.POST.ANE ---
Anesthesia: Postop Eval I Current Vital Signs Temperature: 97 F Pulse Rate: 103 Blood Pressure: 158/84 Respiratory Rate: 16 Pulse Ox: 97 Oxygen Delivery Method: Room Air Assessment Airway patent: Yes Spontaneous unlabored respirations: Yes Mental status: Awake and Calm nausea: No Vomiting: No Anesthesia Complication: No Fluid Hydration Crystalloid volume administer (ml): 800 Total IV fluid infused: 800 Progress Note Anesthesia document: Postop Eval 1 completed: Yes
--- NOTE | 2024-02-07 10:35 | SUR.PHASEII ---
Dr Ruelas states he will call in order for post op antibiotics to be taken after discharge.
--- NOTE | 2024-02-07 13:00 | POSTOPAN2_ITS ---
Anesthesia Postop Eval I Sum Postop Eval Completion status Anesthesia document: Postop Eval 1 completed: Yes Anesthesia Postop Eval I Summary Anesthesia Postop Eval I Summary: Anesthesia Postop Eval I: Assessment Summary Airway patent Yes 02/07/24 10:27 CODE [email or web address] Spontaneous unlabored Yes 02/07/24 10:27 CODE [email or web address].MDOT respirations Mental status Awake,Calm 02/07/24 10:27 CODE [email or web address].MDOT nausea No 02/07/24 10:27 CODE [email or web address].MDOT Vomiting No 02/07/24 10:27 CODE [email or web address].[email or web address] Anesthesia Postop Eval I: Fluid Summary Crystalloid volume administer 800 02/07/24 10:27 CODE CLERK.MDOT (ml) Colloids volume administered ( ml) Blood Product volume administered (ml) Total IV fluid infused 800 02/07/24 10:27 CODE [email or web address].[email or web address] Anesthesia Postop Eval I: Summary Notes Anesthesia Complication No 02/07/24 10:27 CODE [email or web address].[email or web address] Anesthesia Complication Comment: Post-operative progress note Anesthesia: Postop Eval II Evaluation Mental status: Awake and Calm Pain Level: 1 nausea: No Vomiting: No Complications Anesthesia Complication: No
--- NOTE | 2024-02-07 13:00 | PCM.POSTANE2 ---
Anesthesia Postop Eval I Sum Postop Eval Completion status Anesthesia document: Postop Eval 1 completed: Yes Anesthesia Postop Eval I Summary Anesthesia Postop Eval I Summary: Anesthesia Postop Eval I: Assessment Summary Airway patent Yes 02/07/24 10:27 PERSONAL SUPPORT WORKER.MDOT Spontaneous unlabored Yes 02/07/24 10:27 PERSONAL SUPPORT WORKER.MDOT respirations Mental status Awake,Calm 02/07/24 10:27 PERSONAL SUPPORT WORKER.MDOT nausea No 02/07/24 10:27 PERSONAL SUPPORT WORKER.MDOT Vomiting No 02/07/24 10:27 PERSONAL SUPPORT WORKER.MDOT Anesthesia Postop Eval I: Fluid Summary Crystalloid volume administer 800 02/07/24 10:27 PERSONAL SUPPORT WORKER.MDOT (ml) Colloids volume administered ( ml) Blood Product volume administered (ml) Total IV fluid infused 800 02/07/24 10:27 PERSONAL SUPPORT WORKER.MDOT Anesthesia Postop Eval I: Summary Notes Anesthesia Complication No 02/07/24 10:27 PERSONAL SUPPORT WORKER.MDOT Anesthesia Complication Comment: Post-operative progress note Anesthesia: Postop Eval II Evaluation Mental status: Awake and Calm Pain Level: 1 nausea: No Vomiting: No Complications Anesthesia Complication: No
== END 2024-02-07 10:35 | disposition home or self-care (01) ==
LOC: SDC 06:48 → AC 06:48
PROVIDERS: PCP Internal Medicine; Referring Provider Anesthesiology Pain Medicine; Visit Provider Anesthesiology Pain Medicine
PROC: (CPT 62362; principal; 2024-02-07 07:45)
DX: M96.1 Postlaminectomy syndrome, not elsewhere classified (principal); L97.312 Non-pressure chronic ulcer of right ankle with fat layer exposed; F20.9 Schizophrenia, unspecified; E11.42 Type 2 diabetes mellitus with diabetic polyneuropathy; Z79.4 Long term (current) use of insulin; G89.4 Chronic pain syndrome; I10 Essential (primary) hypertension; J45.909 Unspecified asthma, uncomplicated; F32.A Depression, unspecified; K21.9 Gastro-esophageal reflux disease without esophagitis; F17.200 Nicotine dependence, unspecified, uncomplicated; Z79.51 Long term (current) use of inhaled steroids; Z79.01 Long term (current) use of anticoagulants; Z79.899 Other long term (current) drug therapy; Z86.73 Personal history of transient ischemic attack (TIA), and cerebral infarction without residual deficits
CPT/HCPCS: 62362; 01991; 82962; J7120; J2274; J2405; J3490

== ENCOUNTER 2024-02-20 08:45 | Outpatient (RCR) | payer MEDICARE, MEDICAID, SELFPAY ==
[2024-02-13 00:38] VITALS: BP 111/47; PULSE 67; RESP 18; TEMP 36.4
[2024-02-13 08:51] VITALS: BP 126/66; PULSE 87; RESP 18; TEMP 36.1
--- NOTE | 2024-02-13 09:56 | PCM.WC.PN ---
History of Present Illness Date of Service: 02/13/24 Chief Complaint: Non healing right ankle ulcer History of Wound: Ms. Lam is a 63-year-old who was referred to this facility due to nonhealing right lateral ankle ulcer. Noted a year ago, started out as a bullae and subsequently opened up. She states that over the years, she has had alginate and collagen dressings done at her facility without any significant improvement. History of diabetes mellitus, she is not sure of her most recent A1c but states that it has ranged from 8-13. Also history of tobacco use, smokes daily. There is significant pain around the ulcer but she denies otherwise significant leg pain. Does not wear compression. Mostly sedentary but sleeps in the bed. She feels well otherwise, no chills, fever, nausea, vomiting or change in bowel habit reported. Subjective Subjective This is a 63-year-old female who continues to follow to the wound care center for a right lateral ankle ulceration. Patient is assisted by wheelchair today. 3M wrap in place to right leg. Tubigrip compression to left leg. She has been cleared for HBO. She denies constitutional symptoms. Denies further complaints. Objective Data Objective Data Vital Signs: Vital Signs Temp Pulse Resp BP O2 Del Method 96.9 F L 87 18 126/66 H Room Air 02/13/24 08:51 02/13/24 08:51 02/13/24 08:51 02/13/24 08:51 02/13/24 08:51 Oxygen Delivery Method Room Air Physical Exam Const alert, oriented x3 and no apparent distress General Appearance: cooperative HEENT normocephalic Eyes General Eye: normal appearance of both eyes Neck General: normal visual inspection Lymph Lymphatic: no lymphadenopathy noted and no lymphedema noted Resp normal respiratory effort Cardio regular rate and regular rhythm Extremity normal capillary refill, no joint enlargement and no calf tenderness Extremity Narrative: Vascular: DP and PT pulses palpable. Capillary fill time less than 5 seconds to digits. Normal temperature gradient. Hair growth is absent to digits/foot. Neurologic: Light touch sensation diminished. Gross sensation intact. Protective sensation is significantly diminished secondary to diabetic peripheral polyneuropathy. Dermatologic: Skin does appear well-hydrated. Right lateral ankle demonstrates ulceration distal to the lateral malleolus healing with epithelialized wound and hyperpigmented rim. Ulceration demonstrates no malodor, no purulent drainage, no localized erythema, no increased temperature, no palpable fluctuance/bogginess, no visible abscess formation. Musculoskeletal: Patient is in wheelchair and does have decreased muscle strength of the lower extremities bilateral. Skin no rashes or lesions noted, skin turgor normal and no jaundice Neuro moves all extremities Debridement Note Debridement Note No debridement was completed: No debridement was completed today Post-Debridement Measurements and Additional Note: Post-Debridement Measurements/Treatment - Nurse 1 - General Ulcer Assessment Start: 02/13/24 08:51 Freq: Status: Active Protocol: CLOVIS Activity Type Activity Date Activity User E-sign Co-sign Detail Recorded Client Recorded Date Recorded By Document 02/13/24 08:51 [facility]W [facility] [place] 02/13/24 08:56 02/13/24 08:51 - Today's Visit Information Type of service Follow-up Visit (Physician/C.O.D. CLERK ) Arrival Mode Wheelchair Patient Identification Verified (Name & Yes ) Vital Signs Temperature (97.8 F-99.1 F) 96.9 F L Temperature Source Temporal Pulse Rate (60-100) 87 Pulse Location Monitor Respiratory Rate (12-18) 18 Respiratory rate source Observation Oxygen Delivery Method Room Air Blood Pressure (90/60-120/80) 126/66 H Blood Pressure Mean (mm Hg) 86 Source Monitor Position Semi-Fowlers Blood Pressure Location Left Arm History Since Last Visit- (Skip if this is Patient's initial visit) Have you changed medications since your No last visit? Any new allergies or adverse reactions No Had a fall/change in ADL's that may No increase risk of falls Signs or symptoms of abuse and/or No neglect since last visit Have you been in the hospital since your No last visit? Has dressing in place as prescribed Yes Has compression in place as prescribed Yes Has offloadiing in place as prescribed N/A Experienced any changes in pain level or No management Left Footwear Regular Shoe Right Footwear Regular Shoe Pain Scale: 0-10 Numeric Is Patient Pain Free? Yes - Nurse 1 - General Ulcer Measurement Start: 02/13/24 08:51 Freq: Status: Active Protocol: Activity Type Activity Date Activity User E-sign Co-sign Detail Recorded Client Recorded Date Recorded By Document 02/13/24 08:51 KW [facility] [place] 02/13/24 08:56 02/13/24 08:51 Wound Center Nurse 1 #1 R Lat Ankle -Current Size (cm) - Length 0.1 -Current Size (cm) - Width 0.1 -Current Size (cm) - Depth 0.1 -Total Square Cm 0.01 -Date of Last Picture (Recall this 02/13/24 field) -Exudate Amt Small -Exudate Type Serosanguineous -Wound Margin Distinct, Outline Attached -Texture (Lori-wound Skin Appearance) Assessed -Moisture (Lori-wound Skin Appearance) Assessed -Color (Lori-wound Skin Appearance) Assessed -Temperature (Lori-wound Skin No Abnormality Appearance) (Pt Warm) -Tenderness on Palpation (Lori-wound No Skin Appearance) -Ulcer Cleansing Soap and Water -Foul Odor after Cleansing No -Anesthetic Used 5% Lidocaine Gel Right Calf (cm) 34.5 Right Ankle (cm) 21.5 WC - Nurse 2 - General Ulcer CM Notes Start: 02/13/24 08:51 Freq: Status: Active Protocol: Activity Type Activity Date Activity User E-sign Co-sign Detail Recorded Client Recorded Date Recorded By Document 02/13/24 09:09 [facility] [id number] 02/13/24 09:23 [facility] 02/13/24 09:09 Wound Center Nurse 2 #1 R Lat Ankle -Time 09:17 -Post Debridement (cm) - Length 0.1 -Post Debridement (cm) - Width 0.1 -Post Debridement (cm) - Depth 0.1 -Total Square (Post) (cm) 0.01 -Area of Debridement (cm) - Length 0.1 -Area of Debridement (cm) - Width 0.1 -Total Square (Area) (cm) 0.01 -Undermining/Tunneling No -Wound/Ulcer Outcome Not Healed -Ulcer Cleansing Rinsed/ Irrigated with Saline -Foul Odor after Cleansing No -Bioengineered Tissue No -Bleeding Controlled with NA Pain Scale: 0-10 Numeric Is Patient Pain Free? Yes Assessment/Plan Assessment/Plan (1) 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: CODE(S): L97.312 - Non-pressure chronic ulcer of right ankle with fat layer exposed (2) Ankle osteomyelitis, right: CODE(S): M86.9 - Osteomyelitis, unspecified (3) Diabetes mellitus with diabetic polyneuropathy: CODE(S): E11.42 - Type 2 diabetes mellitus with diabetic polyneuropathy (4) Type 2 diabetes mellitus with foot ulcer: CODE(S): E11.621 - Type 2 diabetes mellitus with foot ulcer; L97.509 - Non-pressure chronic ulcer of other part of unspecified foot with unspecified severity QUALIFIERS: Diabetes mellitus long chain beamer insulin use: without long chain beamer use Qualified Code(s): E11.621 - Type 2 diabetes mellitus with foot ulcer; L97.509 - Non-pressure chronic ulcer of other part of unspecified foot with unspecified severity (5) Pain in right lower leg: CODE(S): M79.661 - Pain in right lower leg (6) Delayed wound healing: CODE(S): T14.8XXD - Other injury of unspecified body region, subsequent encounter (7) Tobacco abuse: CODE(S): Z72.0 - Tobacco use PLAN: Plan Patient seen and evaluated Patient did have radiographs performed 09/26/2023 of the right ankle and foot demonstrating generalized osteopenia, soft tissue swelling, and mild arthritis of the first MTPJ and TNJ. Wound cultures were obtained 09/26/2023 demonstrating MRSA positive. These cultures reflect previous past cultures of MRSA positive from August and July 2023. Referral to Dr. Robbins was placed and she did see him on 11/20/23. Patient finished previously prescribed doxycycline 100 mg twice daily for [address] Laughlin. Last appointment with infectious disease 11/20/23 and oral abx has been completed. She has completed 6 weeks of oral antibiotic treatment. Predebridement measurement: 0.1 cm x 0.1 cm x 0.1 cm Esqueda stage III Ulceration was not debrided as noted in the clinical panel above. Prior to debridement on 01/23/24 she was locally anesthetized proximal to the ulcerative site consisting of 10 cc 1% lidocaine with epinephrine with block to the sural nerve and superficial peroneal nerve proximal to ulceration. This is noted to improve patient's tolerance of debridement today. Ulceration to the right lateral ankle measures post-debridement measures 0.1cm x 0.1cm x 0.1cm with newly epithelized skin. No localized signs of infection. At this time site does appear healed. Recommended continued padding/protecting of the area with foam border dressing for the next 10 to 15 days. She will change daily. Tubigrip compression applied left and right lower extremity. Improved edema following the increase of her furosemide from 20 mg to 60 mg daily. Due to significant amount of pain to palpation about the right lateral ankle and patient underwent MRI 10/11/[address] Laughlin. MRI on 10/11/2023 demonstrating lateral soft tissue swelling with skin thickening. There is focal defect consistent with wound. There is marrow edema of the lateral malleolus and distal fibula, series 7 image 8. Impression: Osteomyelitis of the lateral malleolus of the distal fibula with soft tissue wound and swelling. I have reviewed this MRI series and do note the increased marrow edema of the lateral malleolus and series 7 image 8 but also an image 9. This does appear to be at the outer portion of the cortex of the bone as the remaining images do not demonstrate increased signal. I did discuss these images in detail with the patient today in addition to findings with concern for osteomyelitis. I did discuss possible surgical options with the patient in detail 10/17/2023. All options were discussed with the patient in detail including risks and benefits of each procedure. Discussed risk of BKA with patient. Patient is understanding of this but would like to save the right lower extremity. Also discussed possible treatment with IV antibiotics and aggressive surgical debridement of the soft tissue. Patient at this time would like to take time to consider options as she is on the oral antibiotic in addition to further discussion with infectious disease. Previous culture results of MRSA positive were reviewed. Due to the patient unable to get into infectious disease I did initiate outpatient oral antibiotic therapy on 10/17/2023. Rx doxycycline 100 mg twice daily x 14 days and Rx levofloxacin 750 mg daily x 14 days. Antibiotic stop date for first round 10/31/2023. This antibiotic regimen was extended due to next infectious disease appointment on 11/20/2023 with stop date of antibiotics 11/18/2023. Following seeing infectious disease he did extend antibiotic an additional 2 weeks. Recommended probiotic use with antibiotic and to take with food. She has finished the 6-week course of oral antibiotics as instructed and there is noted improvement in her wound with continued decrease in size and more healthy appearing tissue. Discussed entering HBO therapy to aid in continued healing of her ulceration site. Orders were placed for chest x-ray, EKG, and routine lab work prior to initiating approval for HBO. I have reviewed lab work demonstrating WBC 11.7 with left shift, ESR 7, CRP 4.72, hemoglobin 13.7, hematocrit 43.4, platelet 248, sodium 134, potassium 4.2, BUN 21, creatinine 1.18, glucose 317. HbgA1c 7.8%. Prealbumin 33.8. She has also had recurrent sinusitis and finished oral antibiotic for otitis media. She states she has been chronic ear infection following most illnesses. Recommended ENT consult for possible tube placement prior to HBO dives. I do feel patient meets criteria for HBO therapy as ulceration has been present for greater than 6 months, has confirmed osteomyelitis via MRI as stated above, is a Esqueda III ulceration, has undergone applications of advanced wound care products without improvement with prior provider, and is completed 6 weeks of oral antibiotic treatment for her osteomyelitis. She meet with physician 12/26/23 for physical and clearance of HBO therapy, she was cleared. She has seen ENT on 01/10/24 with recommendation of tube placement PRN. At this time due to healing of the wound she will refrain from diving. Recommended adequate protein intake to aid in wound healing. Solomon supplementation is also recommended. Discussed with patient continue proper diabetic diet to aid in wound healing and provide good glycemic control. Discussed glycemic control and lowering of her blood sugar/A1c is important to aid in wound healing. She was again reminded to continue to wear proper fitting shoe gear and to ensure shoe gear is worn at all times for protection of the foot as she is diabetic with significant diminished sensation secondary to peripheral polyneuropathy. Discussed with patient the need for smoking cessation. Discussed impacts of wound healing from her smoking. Discussed with smoking blood flow is diminished to vital organs and extremities which is essential for her wound healing, in addition to affecting oxygen content/saturation of the bloodstream which is also essential for wound healing. Discussed smoking cessation aids and these were offered. Recommended continued discussion with her primary care physician to aid her in smoking cessation. 5 minutes total was spent on discussion 10/03/23. I discussed signs and symptoms of infection today. Discussed if she notices increasing redness of the skin about the ulcerative site moving up the leg, purulent drainage from the wound site, increasing foul odor from the wound, or if she develops fever greater than 101 degree accompanied by nausea, vomiting, chills that these are signs of a progressing infection and she should report to the ED for IV antibiotics and further evaluation. Patient voices understanding of this. The following work up and care recommendations were made: Dressing: Pad and protect with foam border dressing to Right ankle for next 10 to 15 days continue with bilateral Tubigrip compression. Wash: Soap and water Tissue growth optimization: None Offload: Padded protective dressing of the lateral ankle. Recommended waffle offloading boot while in bed. Vascular: DP and PT pulses weakly palpable bilateral. Monophasic Doppler to left pedal pulses. Edema: Mild edema noted to the lower extremities. Recommended continued Tubigrip compression with elevation of lower extremities. Infection: Osteomyelitis confirmed of the distal lateral malleolus by MRI 10/11/2023. She does demonstrate positive MRSA cultures and finished doxycycline and levofloxacin. She has followed with infectious disease. Ulceration healed. Pain: May take [id number] Tylenol for discomfort Host factors: DM type II with peripheral polyneuropathy, MRSA positive cultures, edema, chronic tobacco abuse. I answered all the patient's questions. To return to the wound healing center in 1 week or call sooner if the patient has any questions or concerns.
--- NOTE | 2024-02-14 09:46 | WC ---
PHOTO RIGHT LATERAL ANKLE 02/13/24
[2024-02-20 08:34] VITALS: BP 129/61; PULSE 86; RESP 18; TEMP 36.8
--- NOTE | 2024-02-20 10:39 | PCM.WC.PN ---
History of Present Illness Date of Service: 02/20/24 Chief Complaint: Non healing right ankle ulcer History of Wound: Ms. Lam is a 63-year-old who was referred to this facility due to nonhealing right lateral ankle ulcer. Noted a year ago, started out as a bullae and subsequently opened up. She states that over the years, she has had alginate and collagen dressings done at her facility without any significant improvement. History of diabetes mellitus, she is not sure of her most recent A1c but states that it has ranged from 8-13. Also history of tobacco use, smokes daily. There is significant pain around the ulcer but she denies otherwise significant leg pain. Does not wear compression. Mostly sedentary but sleeps in the bed. She feels well otherwise, no chills, fever, nausea, vomiting or change in bowel habit reported. Subjective Subjective This is a 63-year-old female who continues to follow to the wound care center for a right lateral ankle ulceration. Patient is assisted by wheelchair today. 3M wrap in place to right leg. Tubigrip compression to left leg. She has been cleared for HBO. She believes she has healed. She denies constitutional symptoms. Denies further complaints. Objective Data Objective Data Vital Signs: Vital Signs Temp Pulse Resp BP O2 Del Method 98.2 F 86 18 129/61 H Room Air 02/20/24 08:34 02/20/24 08:34 02/20/24 08:34 02/20/24 08:34 02/13/24 08:51 Oxygen Delivery Method Room Air Physical Exam Const alert, oriented x3 and no apparent distress General Appearance: cooperative HEENT normocephalic Eyes General Eye: normal appearance of both eyes Neck General: normal visual inspection Lymph Lymphatic: no lymphadenopathy noted and no lymphedema noted Resp normal respiratory effort Cardio regular rate and regular rhythm Extremity normal capillary refill, no joint enlargement and no calf tenderness Extremity Narrative: Vascular: DP and PT pulses palpable. Capillary fill time less than 5 seconds to digits. Normal temperature gradient. Hair growth is absent to digits/foot. Neurologic: Light touch sensation diminished. Gross sensation intact. Protective sensation is significantly diminished secondary to diabetic peripheral polyneuropathy. Dermatologic: Skin does appear well-hydrated. Right lateral ankle ulceration distal to the lateral malleolus healed with epithelialized wound and hyperpigmented rim. No signs of infection. Musculoskeletal: Patient is in wheelchair and does have decreased muscle strength of the lower extremities bilateral. Skin no rashes or lesions noted, skin turgor normal and no jaundice Neuro moves all extremities Debridement Note Debridement Note No debridement was completed: No debridement was completed today Post-Debridement Measurements and Additional Note: Post-Debridement Measurements/Treatment WC - Nurse 1 - General Ulcer Assessment Start: 02/13/24 08:51 Freq: Status: Active Protocol: CLOVIS Activity Type Activity Date Activity User E-sign Co-sign Detail Recorded Client Recorded Date Recorded By Document 02/13/24 08:51 KW dhf 02/13/24 08:56 KW Document 02/20/24 08:34 DL [email or web address] 02/20/24 08:39 DL 02/13/24 02/20/24 08:51 08:34 WC - Today's Visit Information Type of service Follow-up Visit Follow-up Visit (Physician/SECOND OFFICER (Physician/SECOND OFFICER ) ) Arrival Mode Wheelchair Wheelchair Transfer Assistance None Patient Identification Verified (Name & Yes Yes ) Patient Requires Transmission-Based No Precautions Vital Signs Temperature (97.8 F-99.1 F) 96.9 F L 98.2 F Temperature Source Temporal Temporal Pulse Rate (60-100) 87 86 Pulse Location Monitor Monitor Respiratory Rate (12-18) 18 18 Respiratory rate source Observation Observation Oxygen Delivery Method Room Air Blood Pressure (90/60-120/80) 126/66 H 129/61 H Blood Pressure Mean (mm Hg) 86 83 Source Monitor Monitor Position Semi-Fowlers Blood Pressure Location Left Arm History Since Last Visit- (Skip if this is Patient's initial visit) Have you changed medications since your No No last visit? Any new allergies or adverse reactions No No Had a fall/change in ADL's that may No No increase risk of falls Signs or symptoms of abuse and/or No No neglect since last visit Have you been in the hospital since your No No last visit? Has dressing in place as prescribed Yes Yes Has compression in place as prescribed Yes Yes Has offloadiing in place as prescribed N/A N/A Experienced any changes in pain level or No No management Left Footwear Regular Shoe Right Footwear Regular Shoe Pain Scale: 0-10 Numeric Is Patient Pain Free? Yes Yes RUY - Nurse 1 - General Ulcer Measurement Start: 08/01/24 08:51 Freq: Status: Active Protocol: Activity Type Activity Date Activity User E-sign Co-sign Detail Recorded Client Recorded Date Recorded By Document 02/13/24 08:51 KW [facility] 02/13/24 08:56 KW Document 02/20/24 08:34 DL [email or web address] 02/20/24 08:39 DL 02/13/24 02/20/24 08:51 08:34 Wound Center Nurse 1 #1 R Lat Ankle -Current Size (cm) - Length 0.1 0 -Current Size (cm) - Width 0.1 0 -Current Size (cm) - Depth 0.1 -Total Square Cm 0.01 0 -Date of Last Picture (Recall this 02/13/24 field) -Photo Taken Yes -Exudate Amt Small None Present -Exudate Type Serosanguineous -Wound Margin Distinct, Flat & Intact Outline Attached -Granulation Amt Large (67-100%) -Granulation Quality Pale -Necrosis Amt None Present (0 %) -Structure Exposed N/A -Texture (Lori-wound Skin Appearance) Assessed Scarring -Moisture (Lori-wound Skin Appearance) Assessed No Abnormality -Color (Lori-wound Skin Appearance) Assessed Hemosiderin Staining -Temperature (Lori-wound Skin No Abnormality No Abnormality Appearance) (Pt Warm) (Pt Warm) -Tenderness on Palpation (Lori-wound No No Skin Appearance) -Ulcer Cleansing Soap and Water Soap and Water -Foul Odor after Cleansing No No -Anesthetic Used 5% Lidocaine Gel Right Calf (cm) 34.5 35.6 Right Ankle (cm) 21.5 22 WC - Nurse 2 - General Ulcer CM Notes Start: 02/13/24 08:51 Freq: Status: Active Protocol: Activity Type Activity Date Activity User E-sign Co-sign Detail Recorded Client Recorded Date Recorded By Document 02/13/24 09:09 [facility] [email or web address] 02/13/24 09:23 [facility] 02/13/24 09:09 Wound Center Nurse 2 #1 R Lat Ankle -Time 09:17 -Post Debridement (cm) - Length 0.1 -Post Debridement (cm) - Width 0.1 -Post Debridement (cm) - Depth 0.1 -Total Square (Post) (cm) 0.01 -Area of Debridement (cm) - Length 0.1 -Area of Debridement (cm) - Width 0.1 -Total Square (Area) (cm) 0.01 -Undermining/Tunneling No -Wound/Ulcer Outcome Not Healed -Ulcer Cleansing Rinsed/ Irrigated with Saline -Foul Odor after Cleansing No -Bioengineered Tissue No -Bleeding Controlled with NA Pain Scale: 0-10 Numeric Is Patient Pain Free? Yes - Nurse 3 - General Ulcer D/C NN Start: 02/13/24 08:51 Freq: Status: Active Protocol: Activity Type Activity Date Activity User E-sign Co-sign Detail Recorded Client Recorded Date Recorded By Document 02/20/24 09:14 DL [email or web address] 02/20/24 09:15 DL 02/20/24 09:14 Wound Care Center Nurse 3 #1 R Lat Ankle -Ulcer Cleansing Rinsed/ Irrigated with Saline -Foul Odor after Cleansing No -Other Dressing no dressing -Other Covering tubigrips -Wound Comment(s) healed/ discharged Treatment Response Procedure Tolerated Well Pain Scale: 0-10 Numeric Is Patient Pain Free? Yes WC - Visit Discharge Discharge Condition Stable Ambulatory Status Wheelchair Transportation Private Auto Facility Type [facility] Orders Sent Yes Assessment/Plan Assessment/Plan (1) 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: CODE(S): L97.312 - Non-pressure chronic ulcer of right ankle with fat layer exposed (2) Ankle osteomyelitis, right: CODE(S): M86.9 - Osteomyelitis, unspecified (3) Diabetes mellitus with diabetic polyneuropathy: CODE(S): E11.42 - Type 2 diabetes mellitus with diabetic polyneuropathy (4) Type 2 diabetes mellitus with foot ulcer: CODE(S): E11.621 - Type 2 diabetes mellitus with foot ulcer; L97.509 - Non-pressure chronic ulcer of other part of unspecified foot with unspecified severity QUALIFIERS: 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 These cultures reflect previous past cultures of MRSA positive from August and July 2023. Referral to Dr. Robbins was placed and she did see him on 11/20/23. Patient finished previously prescribed doxycycline 100 mg twice daily for [address] Laughlin. Last appointment with infectious disease 11/20/23 and oral abx has been completed. She has completed 6 weeks of oral antibiotic treatment. Predebridement measurement: 0.0 cm x 0.0 cm x 0.0 cm Esqueda stage III Ulceration was not debrided as noted in the clinical panel above. Ulceration to the right lateral ankle healed with newly epithelized skin. No localized signs of infection. Recommended continued padding/protecting of the area with foam border dressing for the next 10 to 15 days. She will change daily. Tubigrip compression applied left and right lower extremity. Edema well controlled following the increase of her furosemide from 20 mg to 60 mg daily. Due to significant amount of pain to palpation about the right lateral ankle and patient underwent MRI 10/11/[address] Laughlin. MRI on 10/11/2023 demonstrating lateral soft tissue swelling with skin thickening. There is focal defect consistent with wound. There is marrow edema of the lateral malleolus and distal fibula, series 7 image 8. Impression: Osteomyelitis of the lateral malleolus of the distal fibula with soft tissue wound and swelling. I have reviewed this MRI series and do note the increased marrow edema of the lateral malleolus and series 7 image 8 but also an image 9. This does appear to be at the outer portion of the cortex of the bone as the remaining images do not demonstrate increased signal. I did discuss these images in detail with the patient today in addition to findings with concern for osteomyelitis. I did discuss possible surgical options with the patient in detail 10/17/2023. All options were discussed with the patient in detail including risks and benefits of each procedure. Discussed risk of BKA with patient. Patient is understanding of this but would like to save the right lower extremity. Also discussed possible treatment with IV antibiotics and aggressive surgical debridement of the soft tissue. Patient at this time would like to take time to consider options as she is on the oral antibiotic in addition to further discussion with infectious disease. Previous culture results of MRSA positive were reviewed. Due to the patient unable to get into infectious disease I did initiate outpatient oral antibiotic therapy on 10/17/2023. Rx doxycycline 100 mg twice daily x 14 days and Rx levofloxacin 750 mg daily x 14 days. Antibiotic stop date for first round 10/31/2023. This antibiotic regimen was extended due to next infectious disease appointment on 11/20/2023 with stop date of antibiotics 11/18/2023. Following seeing infectious disease he did extend antibiotic an additional 2 weeks. Recommended probiotic use with antibiotic and to take with food. She finished the 6-week course of oral antibiotics as instructed and there is noted improvement in her wound with continued decrease in size and more healthy appearing tissue. Discussed entering HBO therapy to aid in continued healing of her ulceration site. Orders were placed for chest x-ray, EKG, and routine lab work prior to initiating approval for HBO. I have reviewed lab work demonstrating WBC 11.7 with left shift, ESR 7, CRP 4.72, hemoglobin 13.7, hematocrit 43.4, platelet 248, sodium 134, potassium 4.2, BUN 21, creatinine 1.18, glucose 317. HbgA1c 7.8%. Prealbumin 33.8. She has also had recurrent sinusitis and finished oral antibiotic for otitis media. She states she has been chronic ear infection following most illnesses. Recommended ENT consult for possible tube placement prior to HBO dives. I do feel patient meets criteria for HBO therapy as ulceration has been present for greater than 6 months, has confirmed osteomyelitis via MRI as stated above, is a Esqueda III ulceration, has undergone applications of advanced wound care products without improvement with prior provider, and is completed 6 weeks of oral antibiotic treatment for her osteomyelitis. She meet with physician 12/26/23 for physical and clearance of HBO therapy, she was cleared. She has seen ENT on 01/10/24 with recommendation of tube placement PRN. At this time ulceration has healed and she will refrain from diving. Recommended adequate protein intake to aid in wound healing. Solomon supplementation is also recommended. Discussed with patient continue proper diabetic diet to aid in wound healing and provide good glycemic control. Discussed glycemic control and lowering of her blood sugar/A1c is important to aid in wound healing. She was again reminded to continue to wear proper fitting shoe gear and to ensure shoe gear is worn at all times for protection of the foot as she is diabetic with significant diminished sensation secondary to peripheral polyneuropathy. Discussed with patient the need for smoking cessation. Discussed impacts of wound healing from her smoking. Discussed with smoking blood flow is diminished to vital organs and extremities which is essential for her wound healing, in addition to affecting oxygen content/saturation of the bloodstream which is also essential for wound healing. Discussed smoking cessation aids and these were offered. Recommended continued discussion with her primary care physician to aid her in smoking cessation. 5 minutes total was spent on discussion 10/03/23. I discussed signs and symptoms of infection today. Discussed if she notices increasing redness of the skin about the ulcerative site moving up the leg, purulent drainage from the wound site, increasing foul odor from the wound, or if she develops fever greater than 101 degree accompanied by nausea, vomiting, chills that these are signs of a progressing infection and she should report to the ED for IV antibiotics and further evaluation. Patient voices understanding of this. The following work up and care recommendations were made: Dressing: Pad and protect with foam border dressing to Right ankle for next 10 to 15 days continue with bilateral Tubigrip compression. Wash: Soap and water Tissue growth optimization: None Offload: Padded protective dressing of the lateral ankle. Recommended waffle offloading boot while in bed. Vascular: DP and PT pulses weakly palpable bilateral. Monophasic Doppler to left pedal pulses. Edema: Mild edema noted to the lower extremities. Recommended continued Tubigrip compression with elevation of lower extremities. Infection: Osteomyelitis confirmed of the distal lateral malleolus by MRI 10/11/2023. She does demonstrate positive MRSA cultures and finished doxycycline and levofloxacin. She has followed with infectious disease. Ulceration healed. Pain: May take [id number] Tylenol for discomfort Host factors: DM type II with peripheral polyneuropathy, MRSA positive cultures, edema, chronic tobacco abuse. At this time patient has healed and is being discharged to the wound care center. I answered all the patient's questions. To return to the wound healing center as needed or call sooner if the patient has any questions or concerns.
--- NOTE | 2024-03-05 09:37 | WC ---
PHOTO 02/20/24 RIGHT LATERAL ANKLE(H)
== END 2024-03-14 23:59 | disposition home or self-care (01) ==
LOC: WC 08:45
PROVIDERS: PCP Internal Medicine; Referring Provider Internal Medicine; Visit Provider Student in an Organized Health Care Education/Training Program
DX: E11.621 Type 2 diabetes mellitus with foot ulcer (principal); L97.312 Non-pressure chronic ulcer of right ankle with fat layer exposed; L97.509 Non-pressure chronic ulcer of other part of unspecified foot with unspecified severity; M86.9 Osteomyelitis, unspecified; E11.42 Type 2 diabetes mellitus with diabetic polyneuropathy; E11.69 Type 2 diabetes mellitus with other specified complication; Z72.0 Tobacco use; M79.661 Pain in right lower leg; T14.8XXD Other injury of unspecified body region, subsequent encounter; B95.62 Methicillin resistant Staphylococcus aureus infection as the cause of diseases classified elsewhere
CPT/HCPCS: 99213; G0463

== ENCOUNTER 2024-03-21 19:30 | Emergency (ER) | payer MEDICARE, MEDICAID, SELFPAY ==
[2024-03-21 19:31] VITALS: BP 171/74; PULSE 100; RESP 19; TEMP 37.2; O2SAT 99; BMI 37.5
[2024-03-21 19:37] VITALS: BP 171/74; PULSE 95; RESP 18; TEMP 37.2; O2SAT 97
--- NOTE | 2024-03-21 19:51 | RAD_ITS ---
INDICATION: chest pain EXAMINATION/TECHNIQUE: X-RAY - XR Chest 1 View COMPARISON: 12/19/2023. FINDINGS: The lungs are clear. Tortuous and calcified thoracic aorta. The heart is not enlarged. No pleural effusion or pneumothorax. No acute osseous abnormalities. RAD/Chest 1 View (Portable) IMPRESSION: No acute radiographic abnormalities. Electronically Signed: Rob Booker MD at 20:25 EDT ,
--- NOTE | 2024-03-21 19:51 | EKG12_ITS ---
Test Reason : REPEAT CP Blood Pressure : / mmHG Vent. Rate : 099 BPM Atrial Rate : 099 BPM P-R Int : 120 ms QRS Dur : 088 ms QT Int : 358 ms P-R-T Axes : 032 -04 039 degrees QTc Int : 459 ms Normal sinus rhythm Minimal voltage criteria for LVH, may be normal variant ( R in aVL ) Borderline ECG Confirmed by NEETA LUCAS MD ([id number]), news videotape editor SVETA STILES ([id number]) on 03/23/2024 6:44:53 AM Referred By: Confirmed By:NEETA LUCAS MD
--- NOTE | 2024-03-21 19:51 | ED.VIS.CHEST ---
HPI History of Present Illness Chief Complaint: Chest Pain Narrative Narrative: 63-year-old female past medical history of diabetes, anxiety, schizophrenia, history of stroke presents with chest pain that started this afternoon. She states she has not been feeling well for the last few days. She feels hot and sweaty. She denies any cough. This afternoon she developed chest pain. She denies any nausea or vomiting, no diaphoresis but once again states that she has been sweaty for the last few days. No exacerbating or alleviating factors. [facility] Medical History Lives in assisted Hx of fracture of hip Wears glasses Wears dentures Post-menopausal Depression Alcohol use Substance abuse Open wound Uses wheelchair Arthritis High cholesterol Restless legs Back pain Smoker Asthma Shortness of breath on exertion History of edema Tobacco abuse Insulin dependent diabetes mellitus 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 GERD (gastroesophageal reflux disease) Anxiety Schizophrenia Hyperlipidemia Insomnia Neuralgia and neuritis Spondylosis Mild asthma Cerebral vascular disease Hypertension Home Medications ?Medication ?Instructions ?Recorded ?Last Taken ?Type amlodipine 5 mg tablet 5 mg PO DAILY blood pressure 03/08/19 03/08/19 History ondansetron HCl 4 mg tablet 4 mg PO Q6H PRN PRN Nausea 03/08/19 Unknown History prazosin 1 mg capsule 1 mg PO QHS nightmares 03/08/19 03/07/19 20:00 History albuterol sulfate 2.5 mg/3 mL 2.5 mg inhalation Q4H PRN SOB 07/29/21 Unknown History (0.083 %) solution for nebulization apixaban 5 mg tablet (Eliquis) 5 mg PO BID 07/29/21 02/06/24 History lurasidone 80 mg tablet (Latuda) 80 mg PO DAILY 07/29/21 Unknown History naloxegol 25 mg tablet (Movantik) 25 mg PO DAILY 07/29/21 Unknown History pantoprazole 40 mg tablet,delayed 40 mg PO DAILY 07/29/21 Unknown History release acetaminophen 325 mg tablet 650 mg PO Q6H PRN PRN fever or pain 12/18/22 Unknown History aluminum-mag hydroxide-simethicone 5 ml PO .Q3H PRN PRN indigestion 12/18/22 Unknown History 400 mg-400 mg-40 mg/5 mL oral susp (Maalox Maximum Strength) atenolol 25 mg tablet 25 mg PO DAILY 12/18/22 Unknown History atorvastatin 80 mg tablet 40 mg PO QHS cholesterol 12/18/22 Unknown History baclofen 5 mg tablet 5 mg PO TID 12/18/22 Unknown History benzonatate 100 mg capsule 100 mg PO Q8H PRN cough 12/18/22 Unknown History bisacodyl 10 mg rectal suppository 10 mg OK .Q24 PRN PRN constipation 12/18/22 Unknown History (Dulcolax (bisacodyl)) bisacodyl 5 mg tablet,delayed 5 mg PO Q8H PRN PRN constipation 12/18/22 Unknown History release (Dulcolax (bisacodyl)) cholecalciferol (vitamin D3) 125 125 mcg PO DAILY 12/18/22 Unknown History mcg (5,000 unit) capsule diclofenac sodium 1 % topical gel 2 g topical Q8H PRN PRN pain 12/18/22 Unknown History epinephrine 0.3 mg/0.3 mL 0.3 mg IM Q5-15M PRN anaphylaxis 12/18/22 Unknown History injection, auto-injector (EpiPen) flash glucose sensor (FreeStyle 12/18/22 Unknown History Cynthia 2 Sensor kit) fluticasone fur. 200 mcg-umeclid 1 inh inhalation DAILY 12/18/22 Unknown History 62.5 mcg-vilant 25 mcg inhalat.powder (Trelegy Ellipta) fluticasone propionate 50 2 spray intranasal DAILY 12/18/22 Unknown History mcg/actuation nasal spray,suspension (Flonase Allergy Relief) guaifenesin 100 mg/5 mL oral liquid 200 mg PO Q4H PRN cough 12/18/22 Unknown History hydroxyzine pamoate 25 mg capsule 25 mg PO QHS 12/18/22 Unknown History (Vistaril) insulin glargine U-300 conc 300 100 unit subcut BID 12/18/22 Unknown History unit/mL (1.5 mL) subcutaneous pen (Touroyceo SoloStar U-300 Insulin) ipratropium 0.5 mg-albuterol 3 mg 3 ml inhalation BID PRN shortness 12/18/22 Unknown History (2.5 mg base)/3 mL nebulization of breath soln ipratropium 20 mcg-albuterol 100 1 puff inhalation Q6H PRN 12/18/22 Unknown History mcg/actuation mist for inhalation shortness of breath or wheezing (Combivent Respimat) ipratropium bromide 21 mcg (0.03 2 spray intranasal BID 12/18/22 Unknown History %) nasal spray lisinopril 2.5 mg tablet 2.5 mg PO DAILY 12/18/22 Unknown History loratadine 10 mg tablet (Claritin) 10 mg PO DAILY 12/18/22 Unknown History melatonin 3 mg capsule 3 mg PO HS 12/18/22 Unknown History metformin 500 mg tablet 500 mg PO BID 12/18/22 02/07/24 05:30 History montelukast 10 mg tablet 10 mg PO DAILY 12/18/22 Unknown History naloxone 0.4 mg/mL injection 0.2 mg subcut ONCE PRN opioid 12/18/22 Unknown History solution reversal olanzapine 10 mg tablet (Zyprexa) 10 mg PO QPM 12/18/22 Unknown History polyethylene glycol 3350 17 17 g PO DAILY PRN constipation 12/18/22 Unknown History gram/dose oral powder (Miralax) tizanidine 2 mg tablet 2 mg PO Q12H PRN muscle spasticity 12/18/22 Unknown History duloxetine 60 mg capsule,delayed 60 mg PO BID 01/16/23 Unknown History release (Cymbalta) potassium chloride 20 mEq 20 meq PO DAILY 01/16/23 Unknown History tablet,extended release pregabalin 100 mg capsule 100 mg PO BID 01/16/23 Unknown History furosemide 20 mg tablet 60 mg (3 x 20 mg) PO QAM #90 tabs 11/24/23 Unknown Rx Lactobacillus rhamnosus GG 10 1 cap PO BID 11/27/23 Unknown History billion cell capsule (Culturelle) buspirone 5 mg tablet 5 mg PO BID 11/27/23 Unknown History insulin lispro 100 unit/mL 1 sliding scale dose subcut TID 11/27/23 Unknown History subcutaneous pen (Humalog KwikPen (U-100) Insulin) insulin lispro 100 unit/mL 44 unit subcut LUNCH 11/27/23 Unknown History subcutaneous pen (Humalog KwikPen (U-100) Insulin) loperamide 2 mg capsule 4 mg PO BID PRN loose stool 11/27/23 Unknown History (Anti-Diarrheal (loperamide)) carboxymethylcellulose sodium 0.5 1 drp EACH EYE BID 01/30/24 Unknown History % eye drops (Refresh Tears) cyclosporine 0.05 % eye drops in a 1 drp EACH EYE Q12H 01/30/24 Unknown History dropperette (Restasis) insulin glargine U-300 conc 300 100 unit subcut BID 01/30/24 Unknown History unit/mL (3 mL) subcutaneous pen (Toujeo Max U-300 SoloStar) insulin lispro 100 unit/mL 44 unit subcut DAILY 01/30/24 Unknown History subcutaneous pen (Humalog KwikPen (U-100) Insulin) insulin lispro 100 unit/mL 48 unit subcut DINNER 01/30/24 Unknown History subcutaneous pen (Humalog KwikPen (U-100) Insulin) oxycodone-acetaminophen 5 mg-325 1 tab PO Q12H PRN PRN pain 01/30/24 Unknown History mg tablet semaglutide 0.25 mg or 0.5 mg (2 0.5 mg subcut FR 01/30/24 Unknown History mg/1.5 mL) subcutaneous pen injector (Ozempic) semaglutide 0.25 mg or 0.5 mg (2 0.25 mg subcut .Saturday01/30/24 Unknown History mg/3 mL) subcutaneous pen injector (Ozempic) Allergy/AdvReac Type Severity Reaction Status Date / Time apricot Allergy Unknown PT UNSURE Verified 02/07/24 07:02 OF REACTION BCG (Bacillus Allergy Unknown Other Verified 02/07/24 07:02 Calmette-Zohra) vacc bee venom protein (honey Allergy Unknown Other Verified 02/07/24 07:02 bee) (bee sting) corn Allergy Unknown Other Verified 02/07/24 07:02 Milk Containing Products Allergy Unknown Other Verified 02/07/24 07:02 (Dairy) peas Allergy Unknown Other Verified 02/07/24 07:02 tomato Allergy Unknown Other Verified 02/07/24 07:02 Iodinated Contrast Media Allergy Hives Verified 02/07/24 07:02 (Iodinated Contrast Media - IV Dye) amoxicillin trihydrate (From AdvReac Itching Verified 02/07/24 07:02 Augmentin) hydrocodone (From Vicodin) AdvReac Unknown Verified 02/07/24 07:02 potassium clavulanate (From AdvReac Itching Verified 02/07/24 07:02 Augmentin) prednisone AdvReac Unknown Verified 02/07/24 07:02 shellfish derived AdvReac Itching Verified 02/07/24 07:02 Surgical History History of History of tubal ligation History of hysterectomy History of cholecystectomy History of appendectomy S/P right rotator cuff repair Social History Smoking Status: Current every day smoker tobacco type: cigarettes ROS ROS ED ROS Narrative Constitutional: No fever, no chills. However, has felt hot and sweaty for the last few days. HEENT: No sore throat. No loss of vision. No rhinorrhea. Cardiovascular: Positive chest pain. No palpitations. No pedal edema. Respiratory: No cough, no shortness of breath. Abdominal: No abdominal pain. No nausea. No vomiting. Genitourinary: No dysuria. No hematuria. Musculoskeletal: No myalgias. No arthralgias. Neurologic: No headaches. No dizziness. No lightheadedness. Skin: No rash. No change in color. Psychiatric: No depression. No anxiety. EXAM Physical Exam Narrative Exam Narrative: Afebrile. Vital signs noted. Regular rate and rhythm. Lungs clear to auscultation bilaterally. Abdomen soft nontender with normal active bowel sounds. Neurological examination shows her to be awake, alert, and responsive. Const Vital Signs: 03/21/24 19:31 03/21/24 19:37 03/21/24 19:57 Temperature 99 F 99 F Temperature Source Temporal Temporal Pulse Rate 100 95 Respiratory Rate 19 H 18 Blood Pressure 171/74 H 171/74 H Blood Pressure Mean 106 106 Pulse Ox 99 97 Oxygen Delivery Method Room Air Room Air Room Air 03/21/24 20:36 03/21/24 21:00 03/21/24 22:00 Temperature 98.5 F 97.2 F L 98 F Temperature Source Oral Temporal Oral Pulse Rate 95 97 113 H Respiratory Rate 19 H 18 19 H Blood Pressure 149/76 H 156/79 H 135/78 H Blood Pressure Mean 100 104 97 Pulse Ox 94 95 97 Oxygen Delivery Method Room Air Room Air Room Air MDM MDM MDM Narrative Medical decision making narrative: Comprehensive workup was pursued. In the differential diagnosis is ACS versus pneumonia versus pneumothorax. EKG was obtained which demonstrates normal sinus rhythm at 95 bpm without ectopy or acute ST changes. No STEMI. I reviewed her laboratory work and she has a slightly elevated white count of 12.2 which I think is nonspecific, hemoglobin slightly hemoconcentrated at 15.5 but normal hematocrit of 46.8, platelet count normal at 218. Electrolyte panel is grossly unremarkable with a normal BUN of 13 and creatinine 0.86. While glucose is elevated 227, she has a normal anion gap of 7 so I doubt diabetic ketoacidosis. Sodium normal at 138 and potassium 3.7. Urinalysis does show 5-10 WBCs, but there are 5-10 squamous epithelial cells so I think this is a contaminated specimen and I do not feel antibiotics are indicated. Chest x-ray in 1 view interpreted by myself independently shows no evidence of an acute process, no pneumonia, no pneumothorax. I reviewed the radiology report which confirms my independent interpretation. Initial high-sensitivity troponin is 6. RN did order repeat EKG, and I interpreted as normal sinus rhythm at 99 bpm without ectopy or acute ST changes. No STEMI, no significant change from previous earlier today. She was given Tylenol for a headache that she has had for the last few days. I do not feel she requires CT imaging of the brain. Regarding her chest pain, as long as she has a delta troponin that is acceptable, I do feel that she could be discharged to follow-up and discharged back to [facility]. I did review her assisted papers and she is DNR [facility] arrest. Her second troponin did return and is normal at 7. She did require Tylenol initially which states did not take care of her headache. She usually takes Percocet once every 12 hours so she was given 1 oxycodone here and upon repeat examination states she is feeling mildly improved. At this point in time, I feel she can be discharged back to [facility] alf facility. Disposition is discharged home in stable condition. History & Record Review Discussion w/independent historian: Patient Additional record(s) reviewed:: Prior labs Lab Data Attestation: I reviewed the patient's lab results. Labs: Laboratory Results - last 24 hr 03/21/24 03/21/24 03/21/24 20:00 20:05 22:15 WBC 12.2 H RBC 5.31 Hgb 15.5 H Hct 46.8 MCV 88.1 MCH 29.2 MCHC 33.1 RDW Std Deviation 44.6 H RDW Coeff of Gael 13.8 Plt Count 218 MPV 10.7 Immature Gran % (Auto) 0.700 Neut % (Auto) 65.9 Lymph % (Auto) 25.7 [place] % (Auto) 6.4 Eos % (Auto) 0.7 Baso % (Auto) 0.6 Absolute Neuts (auto) 8.1 H Absolute Lymphs (auto) 3.14 Nucleated RBC % 0 Sodium 138 Potassium 3.7 Chloride 106 Carbon Dioxide 25.0 Anion Gap 7 BUN 13 Creatinine 0.86 Estim Creat Clear Calc 74.91 Est GFR (MDRD) Af Amer 86 Est GFR (MDRD) Non-Af 71 BUN/Creatinine Ratio 15.2 Glucose 227 H Calcium 9.7 Troponin I High Sens 6 7 Urine Color Yellow Urine Clarity Clear Urine pH 7.0 Ur Specific [place] 1.010 Urine Protein 15 H Urine Glucose (UA) 1000 H Urine Ketones Negative Urine Occult Blood Negative Urine Nitrite Negative Urine Bilirubin Negative Urine Urobilinogen Normal Ur Leukocyte Esterase 25 H Urine RBC 0 SEEN Urine WBC 5-10 SEEN Ur Squamous Epith Cells 5-10 SEEN Urine Bacteria 1+ Urine Mucus 0 SEEN Radiography Diagnostic Testing: Clinical Impression(s) from Imaging Studies Chest X-Ray 03/21/24 19:51 IMPRESSION: No acute radiographic abnormalities. Electronically Signed: Rob Booker MD at 20:25 EDT Reading Location ID and State: [facility] / [place] Tel , Service support , Discharge Plan Triage Chief Complaint: Chest Pain ED Provider: Oswaldo Lo Dx/Rx/DC Orders Clinical Impression: Chest pain, Headache Instructions: ED Chest Pain, Uncertain Cause, ED Pain, Acute, Uncertain Cause Prescriptions: No Action acetaminophen 325 mg tablet 650 mg PO Q6H PRN PRN (Reason: fever or pain) atenolol 25 mg tablet 25 mg PO DAILY baclofen 5 mg tablet 5 mg PO TID benzonatate 100 mg capsule 100 mg PO Q8H PRN (Reason: cough) loratadine [Claritin] 10 mg tablet 10 mg PO DAILY Combivent Respimat 20-100 mcg/actuation mist 1 puff inhalation Q6H PRN (Reason: shortness of breath or wheezing) diclofenac sodium 1 % gel 2 g topical Q8H PRN PRN (Reason: pain) Rx Instructions: apply to single elbow, wrist or hand; for hand includes palm/fingers/back of hand bisacodyl [Dulcolax (bisacodyl)] 5 mg tablet,delayed release (DR/EC) 5 mg PO Q8H PRN PRN (Reason: constipation) bisacodyl [Dulcolax (bisacodyl)] 10 mg suppository 10 mg OK .Q24 PRN PRN (Reason: constipation) epinephrine [EpiPen] 0.3 mg/0.3 mL auto-injector 0.3 mg IM Q5-15M PRN (Reason: anaphylaxis) Rx Instructions: do not exceed 3 doses per episode fluticasone propionate [Flonase Allergy Relief] 50 mcg/actuation spray,suspension 2 spray intranasal DAILY Rx Instructions: administer into each nostril (DME) FreeStyle Cynthia 2 Sensor Kit See Rx Instructions .Route Rx Instructions: As directed guaifenesin 100 mg/5 mL liquid 200 mg PO Q4H PRN (Reason: cough) ipratropium bromide 21 mcg (0.03 %) spray,non-aerosol 2 spray intranasal BID Rx Instructions: administer into each nostril ipratropium-albuterol 0.5 mg-3 mg(2.5 mg base)/3 mL solution for nebulization 3 ml inhalation BID PRN (Reason: shortness of breath) lisinopril 2.5 mg tablet 2.5 mg PO DAILY alum-mag hydroxide-simeth [Maalox Maximum Strength] 400-400-40 mg/5 mL suspension 5 ml PO .Q3H PRN PRN (Reason: indigestion) melatonin 3 mg capsule 3 mg PO HS metformin 500 mg tablet 500 mg PO BID polyethylene glycol 3350 [Miralax] 17 gram/dose powder 17 g PO DAILY PRN (Reason: constipation) montelukast 10 mg tablet 10 mg PO DAILY naloxone 0.4 mg/mL solution 0.2 mg subcut ONCE PRN (Reason: opioid reversal) tizanidine 2 mg tablet 2 mg PO Q12H PRN (Reason: muscle spasticity) insulin glargine U-300 conc [Toujeo SoloStar U-300 Insulin] 300 unit/mL (1.5 mL) insulin pen 100 unit subcut BID Trelegy Ellipta 200-62.5-25 mcg blister with device 1 inh inhalation DAILY hydroxyzine pamoate [Vistaril] 25 mg capsule 25 mg PO QHS cholecalciferol (vitamin D3) 125 mcg (5,000 unit) capsule 125 mcg PO DAILY olanzapine [Zyprexa] 10 mg tablet 10 mg PO QPM duloxetine [Cymbalta] 60 mg capsule,delayed release(DR/EC) 60 mg PO BID potassium chloride 20 mEq tablet extended release 20 meq PO DAILY pregabalin 100 mg capsule 100 mg PO BID atorvastatin 80 mg tablet 40 mg PO QHS prazosin 1 MG capsule 1 mg PO QHS amlodipine 5 MG tablet 5 mg PO DAILY ondansetron HCl 4 MG tablet 4 mg PO Q6H PRN PRN (Reason: Nausea) albuterol sulfate 2.5 mg /3 mL (0.083 %) Solution For Nebulization 2.5 mg INHALATION Q4H PRN (Reason: SOB) pantoprazole 40 mg Tablet,Delayed Release (Dr/Ec) 40 mg PO DAILY lurasidone [Latuda] 80 mg Tablet 80 mg PO DAILY Eliquis 5 mg Tablet 5 mg PO BID Movantik 25 mg Tablet 25 mg PO DAILY insulin lispro [Humalog KwikPen Insulin] 100 unit/mL insulin pen 44 unit subcut DAILY insulin lispro [Humalog KwikPen Insulin] 100 unit/mL insulin pen 48 unit subcut DINNER oxycodone-acetaminophen 5-325 mg tablet 1 tab PO Q12H PRN PRN (Reason: pain) Ozempic 0.25 mg or 0.5 mg (2 mg/3 mL) pen injector 0.25 mg subcut .SATURDAY Rx Instructions: LAST DOSE 02/21/24 Ozempic 0.25 mg or 0.5 mg(2 mg/1.5 mL) pen injector 0.5 mg subcut FR Rx Instructions: for 4 weeks cyclosporine [Restasis] 0.05 % dropperette 1 drp EACH EYE Q12H carboxymethylcellulose sodium [Refresh Tears] 0.5 % drops 1 drp EACH EYE BID insulin glargine U-300 conc [Toujeo Max U-300 SoloStar] 300 unit/mL (3 mL) insulin pen 100 unit subcut BID buspirone 5 mg tablet 5 mg PO BID Culturelle 10 billion cell capsule 1 cap PO BID insulin lispro [Humalog KwikPen Insulin] 100 unit/mL insulin pen 1 sliding scale dose subcut TID Rx Instructions: PRIOR TO MEALS insulin lispro [Humalog KwikPen Insulin] 100 unit/mL insulin pen 44 unit subcut LUNCH loperamide [Anti-Diarrheal (loperamide)] 2 mg capsule 4 mg PO BID PRN (Reason: loose stool) furosemide 20 mg tablet 60 mg PO QAM Qty: 90 0RF Primary Care Provider: Bianca Irwin Referrals: Bianca Irwin MD [Primary Care Provider] - 3-5 Days Print Language: Swiss Disposition Disposition: Half-Way Facility Discharge Location: [facility]
[2024-03-21 20:10] LABS: Absolute Lymphocyte Count 3.14 X10^3/uL (0.83-4.51); Absolute Neutrophil Count 8.1 X10^3/uL (2.0-7.7); Basophil# 0.07 X10^3/uL; Basophil% 0.6 % (0-1); Eosinophil# 0.08 X10^3/uL; Eosinophils% 0.7 % (0-5); Hematocrit 46.8 % (37-47); Hemoglobin 15.5 g/dL (12.0-15.0); Lymphocyte # 3.14 X10^3/ul (0.83-4.51); Lymphocyte % 25.7 % (19-41); Mean Corp Hgb Conc 33.1 g/dL (32-36); Mean Corpuscular Hgb 29.2 pg (27.0-32.0); Mean Corpuscular Volume 88.1 fL (81-99); Mean Platelet Vol. 10.7 fl (6.2-12.0); Monocyte# 0.78 X10^3/uL; Monocyte% 6.4 % (0-10); NRBC Flagged by Analyzer 0 % (0-5); Neutrophil # 8.07 X10^3/uL (2.7-7.7); Neutrophil % 65.9 % (47-70); Platelet Count 218 K/mm3 (150-450); RBC Distribution Width CV 13.8 % (11.6-14.6); RBC Distribution Width SD 44.6 fl (35.1-43.9); Red Blood Count 5.31 M/mm3 (4.2-5.4); White Blood Count 12.2 K/mm3 (4.4-11.0)
[2024-03-21 20:10] LABS: Mucous, Urine 0 SEEN /hpf (<or=2+); Red Blood Cells-Urine 0 SEEN /hpf (0-5)
[2024-03-21 20:12] LABS: Color, Urine Yellow (Yellow); Glucose, Dipstick 1000 mg/dl (Normal); Ketone-Dipstick Negative (Negative); Leukocyte Esterase-Dipstick 25 /ul (Negative); Nitrite-Dipstick Negative (Negative); Occult Blood-Urine Negative /ul (Negative); Protein-Dipstick 15 mg/dl (Negative); Urine Bilirubin Dipstick Negative (Negative); Urine Clarity Clear (Clear); Urine Urobilinogen Normal (Normal)
[2024-03-21 20:25] LABS: Anion Gap 7 (5-15); BUN 13 mg/dL (7-18); BUN/Creat Ratio 15.2 RATIO (10-20); Calcium,Total 9.7 mg/dL (8.5-10.1); Chloride 106 mmol/L (98-107); Creatinine, Serum 0.86 mg/dL (0.55-1.02); EST Glomerular Filtration Rate 71 mL/min (>60); Est Glom Filt Rate - Afr Amer 86 mL/min (>60); Estimated Creatinine Clearance 74.91 ml/min; Glucose 227 mg/dL (74-106); Potassium 3.7 mmol/L (3.5-5.1); Sodium Level 138 mmol/L (136-145); Troponin-I HS (w/2H Reflex) 6 pg/mL (3.0-54.0)
[2024-03-21 20:26] LABS: Squamous Epithelial Cells - UA 5-10 SEEN /hpf (5-10); White Blood Cells 5-10 SEEN /hpf (0-5)
[2024-03-21 20:27] LABS: Bacteria 1+ /hpf (None Seen)
[2024-03-21 20:36] VITALS: BP 149/76; PULSE 95; RESP 19; TEMP 36.9; O2SAT 94
[2024-03-21 21:00] VITALS: BP 156/79; PULSE 97; RESP 18; TEMP 36.2; O2SAT 95
--- NOTE | 2024-03-21 21:05 | EKG12_ITS ---
Test Reason : DYSRHYTHMIA Blood Pressure : / mmHG Vent. Rate : 095 BPM Atrial Rate : 095 BPM P-R Int : 132 ms QRS Dur : 082 ms QT Int : 364 ms P-R-T Axes : 040 -07 046 degrees QTc Int : 457 ms Normal sinus rhythm Minimal voltage criteria for LVH, may be normal variant ( R in aVL ) Borderline ECG Confirmed by NEETA LUCAS MD ([id number]), news videotape editor SVETA STILES ([id number]) on 03/23/2024 6:45:07 AM Referred By: ADORE Confirmed By:NEETA LUCAS MD
[2024-03-21] MEDS: Acetaminophen 325 MG Tablet 650 MG PO (21:17)
[2024-03-21 22:00] VITALS: BP 135/78; PULSE 113; RESP 19; TEMP 36.6; O2SAT 97
[2024-03-21 22:04] LABS: Reflex Troponin-HS? (from REC) Y
[2024-03-21] MEDS: oxyCODONE 5 MG Tablet PO (22:15)
[2024-03-21 22:52] LABS: Troponin-I HS 7 pg/mL (3.0-54.0)
[2024-03-21 23:00] VITALS: BP 138/64; PULSE 104; RESP 24; O2SAT 96
[2024-03-22] VITALS: BP 136/84; PULSE 103; RESP 20; O2SAT 97
[2024-03-22 01:00] VITALS: BP 147/68; PULSE 95; RESP 16; O2SAT 97
[2024-03-22 01:39] VITALS: BP 147/68; PULSE 95; RESP 16; TEMP 36.9; O2SAT 97
[2024-03-22 02:00] VITALS: BP 141/78; PULSE 99; RESP 17; O2SAT 95
[2024-03-22 03:22] LABS: Bedside Glucose 158 mg/dL (74-106)
== END 2024-03-22 03:08 | disposition skilled nursing facility (03) ==
PROVIDERS: Emergency Provider Emergency Medicine; PCP Internal Medicine; Visit Provider Emergency Medicine
DX: R07.9 Chest pain, unspecified (principal); F20.9 Schizophrenia, unspecified; E11.9 Type 2 diabetes mellitus without complications; Z79.4 Long term (current) use of insulin; F41.9 Anxiety disorder, unspecified; F17.210 Nicotine dependence, cigarettes, uncomplicated; R51.9 Headache, unspecified; Z86.73 Personal history of transient ischemic attack (TIA), and cerebral infarction without residual deficits; I10 Essential (primary) hypertension; Z79.899 Other long term (current) drug therapy; E78.00 Pure hypercholesterolemia, unspecified; K21.9 Gastro-esophageal reflux disease without esophagitis; Z79.85 Long-term (current) use of injectable non-insulin antidiabetic drugs; Z98.51 Tubal ligation status; Z90.710 Acquired absence of both cervix and uterus; Z90.49 Acquired absence of other specified parts of digestive tract
CPT/HCPCS: 71045; 80048; 81001; 82962; 84484; 85025; 93005; 99285; A4216

== ENCOUNTER 2024-04-08 00:51 | Emergency (ER) | payer MEDICARE, MEDICAID, SELFPAY ==
[2024-04-08 00:54] VITALS: BP 153/72; PULSE 73; RESP 18; TEMP 36.6; O2SAT 95; BMI 36.4
[2024-04-08 00:57] VITALS: BP 153/72; PULSE 73; RESP 18; TEMP 36.6; O2SAT 95
[2024-04-08 01:52] VITALS: BP 162/79; PULSE 86; RESP 16; TEMP 36.6; O2SAT 94
--- NOTE | 2024-04-08 02:19 | CT_ITS ---
EXAM: CT ABDOMEN AND PELVIS WITHOUT INTRAVENOUS CONTRAST CLINICAL INDICATION: PAIN TECHNIQUE: Helically acquired images were obtained of the abdomen and pelvis without intravenous contrast. CTDIvol = ( 18.85 ) mGy, DLP = ( 1041.08 ) mGycm This CT exam was performed using one or more of the following dose reduction techniques: automated exposure control, adjustment of the mA and/or kV according to patient size, and/or use of iterative reconstruction technique. COMPARISON: No relevant prior studies available. FINDINGS: LOWER THORAX: Unremarkable. Lung bases are clear. No cardiomegaly. No significant pericardial effusion. ABDOMEN: LIVER: Ill-defined hypodensities along the anterior segment of the right and left hepatic lobe. Correlate for any history of prior surgery in this area. Hepatomegaly and hepatic steatosis. GALLBLADDER AND BILE DUCTS: Prior cholecystectomy. No intra- or extrahepatic biliary ductal dilation. PANCREAS: Unremarkable. No focal cystic mass. SPLEEN: Unremarkable. Normal size without focal cystic or solid mass. ADRENALS: Unremarkable. No nodules. KIDNEYS AND URETERS: 2 cm exophytic intermediate density right renal mass laterally. Consider further investigation with renal CT or MRI to exclude neoplasm/enhancement. Small nonobstructing right renal calyceal calculi. No hydronephrosis. Normal renal size and position. STOMACH AND BOWEL: Unremarkable. No colitis or diverticulitis or bowel obstruction. PELVIS: APPENDIX: No evidence of acute appendicitis. BLADDER: Decompressed appearance of the bladder. REPRODUCTIVE: Unremarkable as visualized. No mass. ABDOMEN and PELVIS: INTRAPERITONEAL SPACE: Unremarkable. No ascites or other fluid collection. No free air. BONES/JOINTS: Degenerative changes of the pelvis and spine. Remote ORIF of a left proximal femur fracture. Small fat-containing left inguinal hernia. No suspicious lytic or blastic abnormality. SOFT TISSUES: See above. VASCULATURE: Unremarkable. Abdominal aorta is non-dilated. LYMPH NODES: Unremarkable. No enlarged lymph nodes. CT/Abdomen/Pelvis without Cont IMPRESSION: 1. Small nonobstructing right renal calyceal calculi. 2. No other acute or inflammatory disease or bowel obstruction. 3. Hepatomegaly and hepatic steatosis. 4. Ancillary findings as above.. Electronically Signed: Rancho Mares MD at 4:15 EDT ,
--- NOTE | 2024-04-08 06:44 | EX.ED.DYSGE1 ---
HPI History of Present Illness Chief Complaint: Flank Pain Informant: patient and EMS Narrative Narrative: Patient is a 63-year-old female with past medical history of type 2 diabetes bipolar disorder hyperlipidemia and reported kidney stones. She states she has been having right sided abdominal/flank pain for multiple weeks but feels like in the last 1 to 2 days she has not been able to urinate well. With concern for potential kidney stone as well as potential UTI or urinary retention she was sent in for evaluation. [facility] Medical History Lives in correction Hx of fracture of hip Wears glasses Wears dentures Post-menopausal Depression Alcohol use Substance abuse Open wound Uses wheelchair Arthritis High cholesterol Restless legs Back pain Smoker Asthma Shortness of breath on exertion History of edema Tobacco abuse Insulin dependent diabetes mellitus 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 GERD (gastroesophageal reflux disease) Anxiety Schizophrenia Hyperlipidemia Insomnia Neuralgia and neuritis Spondylosis Mild asthma Cerebral vascular disease Hypertension Home Medications ?Medication ?Instructions ?Recorded ?Last Taken ?Type amlodipine 5 mg tablet 5 mg PO DAILY blood pressure 03/08/19 03/08/19 History ondansetron HCl 4 mg tablet 4 mg PO Q6H PRN PRN Nausea 03/08/19 Unknown History prazosin 1 mg capsule 1 mg PO QHS nightmares 03/08/19 03/07/19 20:00 History albuterol sulfate 2.5 mg/3 mL 2.5 mg inhalation Q4H PRN SOB 07/29/21 Unknown History (0.083 %) solution for nebulization apixaban 5 mg tablet (Eliquis) 5 mg PO BID 07/29/21 02/06/24 History lurasidone 80 mg tablet (Latuda) 80 mg PO DAILY 07/29/21 Unknown History naloxegol 25 mg tablet (Movantik) 25 mg PO DAILY 07/29/21 Unknown History pantoprazole 40 mg tablet,delayed 40 mg PO DAILY 07/29/21 Unknown History release acetaminophen 325 mg tablet 650 mg PO Q6H PRN PRN fever or pain 12/18/22 Unknown History aluminum-mag hydroxide-simethicone 5 ml PO .Q3H PRN PRN indigestion 12/18/22 Unknown History 400 mg-400 mg-40 mg/5 mL oral susp (Maalox Maximum Strength) atenolol 25 mg tablet 25 mg PO DAILY 12/18/22 Unknown History atorvastatin 80 mg tablet 40 mg PO QHS cholesterol 12/18/22 Unknown History baclofen 5 mg tablet 5 mg PO TID 12/18/22 Unknown History benzonatate 100 mg capsule 100 mg PO Q8H PRN cough 12/18/22 Unknown History bisacodyl 10 mg rectal suppository 10 mg SD .Q24 PRN PRN constipation 12/18/22 Unknown History (Dulcolax (bisacodyl)) bisacodyl 5 mg tablet,delayed 5 mg PO Q8H PRN PRN constipation 12/18/22 Unknown History release (Dulcolax (bisacodyl)) cholecalciferol (vitamin D3) 125 125 mcg PO DAILY 12/18/22 Unknown History mcg (5,000 unit) capsule diclofenac sodium 1 % topical gel 2 g topical Q8H PRN PRN pain 12/18/22 Unknown History epinephrine 0.3 mg/0.3 mL 0.3 mg IM Q5-15M PRN anaphylaxis 12/18/22 Unknown History injection, auto-injector (EpiPen) flash glucose sensor (FreeStyle 12/18/22 Unknown History Cynthia 2 Sensor kit) fluticasone fur. 200 mcg-umeclid 1 inh inhalation DAILY 12/18/22 Unknown History 62.5 mcg-vilant 25 mcg inhalat.powder (Trelegy Ellipta) fluticasone propionate 50 2 spray intranasal DAILY 12/18/22 Unknown History mcg/actuation nasal spray,suspension (Flonase Allergy Relief) guaifenesin 100 mg/5 mL oral liquid 200 mg PO Q4H PRN cough 12/18/22 Unknown History hydroxyzine pamoate 25 mg capsule 25 mg PO QHS 12/18/22 Unknown History (Vistaril) insulin glargine U-300 conc 300 100 unit subcut BID 12/18/22 Unknown History unit/mL (1.5 mL) subcutaneous pen (Toucrystal SoloStar U-300 Insulin) ipratropium 0.5 mg-albuterol 3 mg 3 ml inhalation BID PRN shortness 12/18/22 Unknown History (2.5 mg base)/3 mL nebulization of breath soln ipratropium 20 mcg-albuterol 100 1 puff inhalation Q6H PRN 12/18/22 Unknown History mcg/actuation mist for inhalation shortness of breath or wheezing (Combivent Respimat) ipratropium bromide 21 mcg (0.03 2 spray intranasal BID 12/18/22 Unknown History %) nasal spray lisinopril 2.5 mg tablet 2.5 mg PO DAILY 12/18/22 Unknown History loratadine 10 mg tablet (Claritin) 10 mg PO DAILY 12/18/22 Unknown History melatonin 3 mg capsule 3 mg PO HS 12/18/22 Unknown History metformin 500 mg tablet 500 mg PO BID 12/18/22 02/07/24 05:30 History montelukast 10 mg tablet 10 mg PO DAILY 12/18/22 Unknown History naloxone 0.4 mg/mL injection 0.2 mg subcut ONCE PRN opioid 12/18/22 Unknown History solution reversal olanzapine 10 mg tablet (Zyprexa) 10 mg PO QPM 12/18/22 Unknown History polyethylene glycol 3350 17 17 g PO DAILY PRN constipation 12/18/22 Unknown History gram/dose oral powder (Miralax) tizanidine 2 mg tablet 2 mg PO Q12H PRN muscle spasticity 12/18/22 Unknown History duloxetine 60 mg capsule,delayed 60 mg PO BID 01/16/23 Unknown History release (Cymbalta) potassium chloride 20 mEq 20 meq PO DAILY 01/16/23 Unknown History tablet,extended release pregabalin 100 mg capsule 100 mg PO BID 01/16/23 Unknown History furosemide 20 mg tablet 60 mg (3 x 20 mg) PO QAM #90 tabs 11/24/23 Unknown Rx Lactobacillus rhamnosus GG 10 1 cap PO BID 11/27/23 Unknown History billion cell capsule (Culturelle) buspirone 5 mg tablet 5 mg PO BID 11/27/23 Unknown History insulin lispro 100 unit/mL 1 sliding scale dose subcut TID 11/27/23 Unknown History subcutaneous pen (Humalog KwikPen (U-100) Insulin) insulin lispro 100 unit/mL 44 unit subcut LUNCH 11/27/23 Unknown History subcutaneous pen (Humalog KwikPen (U-100) Insulin) loperamide 2 mg capsule 4 mg PO BID PRN loose stool 11/27/23 Unknown History (Anti-Diarrheal (loperamide)) carboxymethylcellulose sodium 0.5 1 drp EACH EYE BID 01/30/24 Unknown History % eye drops (Refresh Tears) cyclosporine 0.05 % eye drops in a 1 drp EACH EYE Q12H 01/30/24 Unknown History dropperette (Restasis) insulin glargine U-300 conc 300 100 unit subcut BID 01/30/24 Unknown History unit/mL (3 mL) subcutaneous pen (Toujeo Max U-300 SoloStar) insulin lispro 100 unit/mL 44 unit subcut DAILY 01/30/24 Unknown History subcutaneous pen (Humalog KwikPen (U-100) Insulin) insulin lispro 100 unit/mL 48 unit subcut DINNER 01/30/24 Unknown History subcutaneous pen (Humalog KwikPen (U-100) Insulin) oxycodone-acetaminophen 5 mg-325 1 tab PO Q12H PRN PRN pain 01/30/24 Unknown History mg tablet semaglutide 0.25 mg or 0.5 mg (2 0.5 mg subcut FR 01/30/24 Unknown History mg/1.5 mL) subcutaneous pen injector (Ozempic) semaglutide 0.25 mg or 0.5 mg (2 0.25 mg subcut .Saturday01/30/24 Unknown History mg/3 mL) subcutaneous pen injector (Ozempic) Allergy/AdvReac Type Severity Reaction Status Date / Time apricot Allergy Unknown PT UNSURE Verified 04/08/24 00:53 OF REACTION BCG (Bacillus Allergy Unknown Other Verified 04/08/24 00:53 Calmette-Zohra) vacc bee venom protein (honey Allergy Unknown Other Verified 04/08/24 00:53 bee) (bee sting) corn Allergy Unknown Other Verified 04/08/24 00:53 Milk Containing Products Allergy Unknown Other Verified 04/08/24 00:53 (Dairy) peas Allergy Unknown Other Verified 04/08/24 00:53 tomato Allergy Unknown Other Verified 04/08/24 00:53 Iodinated Contrast Media Allergy Hives Verified 04/08/24 00:53 (Iodinated Contrast Media - IV Dye) amoxicillin trihydrate (From AdvReac Itching Verified 04/08/24 00:53 Augmentin) hydrocodone (From Vicodin) AdvReac Unknown Verified 04/08/24 00:53 potassium clavulanate (From AdvReac Itching Verified 04/08/24 00:53 Augmentin) prednisone AdvReac Unknown Verified 04/08/24 00:53 shellfish derived AdvReac Itching Verified 04/08/24 00:53 Surgical History History of History of tubal ligation History of hysterectomy History of cholecystectomy History of appendectomy S/P right rotator cuff repair Social History Smoking Status: Current every day smoker tobacco type: cigarettes ROS ROS ED Constitutional Constitutional ED: Denies chills or fever(s) Eyes Eyes: Denies blurry vision or change in vision ENT ENT ED: Denies rhinorrhea or sore throat Cardiovascular Cardiovascular: Denies chest pain Respiratory/Chest Respiratory/Chest: Denies cough or dyspnea Gastrointestinal Gastrointestinal: Reports abdominal pain; Denies diarrhea, nausea or vomiting Genitourinary Genitourinary ED: Reports other Details: Positive urinary hesitancy ; Denies dysuria, hematuria or urinary frequency Musculoskeletal Musculoskeletal: Reports back pain; Denies myalgias Integumentary Denies rash Neurologic Neurologic: Denies headache(s) Hematologic/Lymphatic Hematologic/Lymphatic: Reports easy bleeding and easy bruising EXAM Physical Exam Const Vital Signs: 04/08/24 00:54 04/08/24 00:57 Temperature 97.9 F 97.9 F Temperature Source Oral Oral Pulse Rate 73 73 Respiratory Rate 18 18 Blood Pressure 153/72 H 153/72 H Blood Pressure Mean 99 99 Pulse Ox 95 95 Oxygen Delivery Method Room Air Room Air Positive well nourished, well developed and obese General Appearance ED: well developed; Negative for pallor Nutritional Appearance: obese HEENT HEENT Narrative: Normocephalic atraumatic Eyes PERRL and EOMs intact bilaterally General Eye ED: Negative for scleral icterus Neck supple Resp normal respiratory effort and clear to auscultation bilaterally Cardio regular rate and regular rhythm Rate: other Other Details: Radial and carotid pulses are equal and symmetric GI non-distended and no masses GI Narrative: Abdomen is obese soft and nondistended with hypoactive bowel sounds. Patient has pain on palpation in the suprapubic region. However there is no organomegaly or distention to suggest urinary retention/distended bladder. No voluntary guarding or rigidity, no pulsatile mass or fluid wave Auscultation: normoactive bowel sounds Palpation: soft Back/Spine Back/Spine Narrative: Positive right CVA pain noted Extremity normal to inspection Neuro oriented x3, CN's II-XII intact bilaterally and no sensory deficits noted Sensorium / Orientation: alert Motor Exam: strength 5/5 throughout Psych mental status grossly normal Skin no rashes or lesions noted General Skin Exam: Negative for jaundice or pallor MDM MDM MDM Narrative Medical decision making narrative: Patient presented ER slightly hypertensive but does report a past medical history of this. She has had pain for multiple weeks but feels like it is slightly worse in the last 1 to 2 days with difficulty urinating. Differential diagnosis is acute urinary retention versus UTI versus pyelonephritis versus kidney stone. Secondary to his basic labs and a noncontrast CT were obtained. Labs revealed leukocytosis without left shift but otherwise no signs of acute kidney injury or electrolyte abnormality. Urine sample showed no signs of infection. CT scan revealed a mass on the right kidney with a stone within the kidney but no ureteral stone or signs of intestinal obstruction or perforation. Therefore at this time as workup does not reveal any signs of acute infection or obstruction or perforation and she does not have ELIZABETH or findings for sepsis I do not feel there is need for further workup and patient is otherwise safe for discharge and she can have the mass on her right kidney evaluated at a later basis on an outpatient status History & Record Review Discussion w/independent historian: Patient Lab Data Attestation: I reviewed the patient's lab results. Discharge Plan Triage Chief Complaint: Flank Pain ED Provider: Rancho Orozco Dx/Rx/DC Orders Clinical Impression: Nonspecific abdominal pain, COPD (chronic obstructive pulmonary disease), Bipolar disorder, Type 2 diabetes mellitus, Hypertension, Mass of right kidney Instructions: Abdominal Pain Prescriptions: No Action acetaminophen 325 mg tablet 650 mg PO Q6H PRN PRN (Reason: fever or pain) atenolol 25 mg tablet 25 mg PO DAILY baclofen 5 mg tablet 5 mg PO TID benzonatate 100 mg capsule 100 mg PO Q8H PRN (Reason: cough) loratadine [Claritin] 10 mg tablet 10 mg PO DAILY Combivent Respimat 20-100 mcg/actuation mist 1 puff inhalation Q6H PRN (Reason: shortness of breath or wheezing) diclofenac sodium 1 % gel 2 g topical Q8H PRN PRN (Reason: pain) Rx Instructions: apply to single elbow, wrist or hand; for hand includes palm/fingers/back of hand bisacodyl [Dulcolax (bisacodyl)] 5 mg tablet,delayed release (DR/EC) 5 mg PO Q8H PRN PRN (Reason: constipation) bisacodyl [Dulcolax (bisacodyl)] 10 mg suppository 10 mg SD .Q24 PRN PRN (Reason: constipation) epinephrine [EpiPen] 0.3 mg/0.3 mL auto-injector 0.3 mg IM Q5-15M PRN (Reason: anaphylaxis) Rx Instructions: do not exceed 3 doses per episode fluticasone propionate [Flonase Allergy Relief] 50 mcg/actuation spray,suspension 2 spray intranasal DAILY Rx Instructions: administer into each nostril (DME) FreeStyle Cynthia 2 Sensor Kit See Rx Instructions .Route Rx Instructions: As directed guaifenesin 100 mg/5 mL liquid 200 mg PO Q4H PRN (Reason: cough) ipratropium bromide 21 mcg (0.03 %) spray,non-aerosol 2 spray intranasal BID Rx Instructions: administer into each nostril ipratropium-albuterol 0.5 mg-3 mg(2.5 mg base)/3 mL solution for nebulization 3 ml inhalation BID PRN (Reason: shortness of breath) lisinopril 2.5 mg tablet 2.5 mg PO DAILY alum-mag hydroxide-simeth [Maalox Maximum Strength] 400-400-40 mg/5 mL suspension 5 ml PO .Q3H PRN PRN (Reason: indigestion) melatonin 3 mg capsule 3 mg PO HS metformin 500 mg tablet 500 mg PO BID polyethylene glycol 3350 [Miralax] 17 gram/dose powder 17 g PO DAILY PRN (Reason: constipation) montelukast 10 mg tablet 10 mg PO DAILY naloxone 0.4 mg/mL solution 0.2 mg subcut ONCE PRN (Reason: opioid reversal) tizanidine 2 mg tablet 2 mg PO Q12H PRN (Reason: muscle spasticity) insulin glargine U-300 conc [Toujeo SoloStar U-300 Insulin] 300 unit/mL (1.5 mL) insulin pen 100 unit subcut BID Trelegy Ellipta 200-62.5-25 mcg blister with device 1 inh inhalation DAILY hydroxyzine pamoate [Vistaril] 25 mg capsule 25 mg PO QHS cholecalciferol (vitamin D3) 125 mcg (5,000 unit) capsule 125 mcg PO DAILY olanzapine [Zyprexa] 10 mg tablet 10 mg PO QPM duloxetine [Cymbalta] 60 mg capsule,delayed release(DR/EC) 60 mg PO BID potassium chloride 20 mEq tablet extended release 20 meq PO DAILY pregabalin 100 mg capsule 100 mg PO BID atorvastatin 80 mg tablet 40 mg PO QHS prazosin 1 MG capsule 1 mg PO QHS amlodipine 5 MG tablet 5 mg PO DAILY ondansetron HCl 4 MG tablet 4 mg PO Q6H PRN PRN (Reason: Nausea) albuterol sulfate 2.5 mg /3 mL (0.083 %) Solution For Nebulization 2.5 mg INHALATION Q4H PRN (Reason: SOB) pantoprazole 40 mg Tablet,Delayed Release (Dr/Ec) 40 mg PO DAILY lurasidone [Latuda] 80 mg Tablet 80 mg PO DAILY Eliquis 5 mg Tablet 5 mg PO BID Movantik 25 mg Tablet 25 mg PO DAILY insulin lispro [Humalog KwikPen Insulin] 100 unit/mL insulin pen 44 unit subcut DAILY insulin lispro [Humalog KwikPen Insulin] 100 unit/mL insulin pen 48 unit subcut DINNER oxycodone-acetaminophen 5-325 mg tablet 1 tab PO Q12H PRN PRN (Reason: pain) Ozempic 0.25 mg or 0.5 mg (2 mg/3 mL) pen injector 0.25 mg subcut .SATURDAY Rx Instructions: LAST DOSE 02/21/24 Ozempic 0.25 mg or 0.5 mg(2 mg/1.5 mL) pen injector 0.5 mg subcut FR Rx Instructions: for 4 weeks cyclosporine [Restasis] 0.05 % dropperette 1 drp EACH EYE Q12H carboxymethylcellulose sodium [Refresh Tears] 0.5 % drops 1 drp EACH EYE BID insulin glargine U-300 conc [Toujeo Max U-300 SoloStar] 300 unit/mL (3 mL) insulin pen 100 unit subcut BID buspirone 5 mg tablet 5 mg PO BID Culturelle 10 billion cell capsule 1 cap PO BID insulin lispro [Humalog KwikPen Insulin] 100 unit/mL insulin pen 1 sliding scale dose subcut TID Rx Instructions: PRIOR TO MEALS insulin lispro [Humalog KwikPen Insulin] 100 unit/mL insulin pen 44 unit subcut LUNCH loperamide [Anti-Diarrheal (loperamide)] 2 mg capsule 4 mg PO BID PRN (Reason: loose stool) furosemide 20 mg tablet 60 mg PO QAM Qty: 90 0RF Primary Care Provider: Bianca Irwin Referrals: Bianca Irwin MD [Primary Care Provider] - Print Language: Malay Disposition Disposition: Home, Self Care
[2024-04-08 07:12] LABS: Bacteria 0 SEEN /hpf (None Seen); Mucous, Urine 0 SEEN /hpf (<or=2+); Red Blood Cells-Urine 0 SEEN /hpf (0-5); Squamous Epithelial Cells - UA 0 SEEN /hpf (5-10); White Blood Cells 0 SEEN /hpf (0-5)
[2024-04-08 07:32] LABS: Color, Urine YELLOW (Yellow); Glucose, Dipstick NEGATIVE (Normal); Ketone-Dipstick Negative (Negative); Urine Bilirubin Dipstick Negative (Negative); Urine Clarity Clear (Clear)
[2024-04-08 07:33] LABS: Leukocyte Esterase-Dipstick Negative /ul (Negative); Nitrite-Dipstick Negative (Negative); Occult Blood-Urine Negative /ul (Negative); Protein-Dipstick Negative (Negative); Specific Gravity, Urine 1.005 (1.002-1.030); Urine Urobilinogen Normal (Normal)
[2024-04-08 07:34] LABS: Hematocrit 42.9 % (37-47); Hemoglobin 14.5 g/dL (12.0-15.0); Mean Corp Hgb Conc 33.8 g/dL (32-36); Mean Corpuscular Hgb 29.7 pg (27.0-32.0); Mean Corpuscular Volume 87.9 fL (81-99); Mean Platelet Vol. 9.9 fl (6.2-12.0); Platelet Count 200 K/mm3 (150-450); RBC Distribution Width CV 13.5 % (11.6-14.6); RBC Distribution Width SD 43.8 fl (35.1-43.9); Red Blood Count 4.88 M/mm3 (4.2-5.4); White Blood Count 13.4 K/mm3 (4.4-11.0)
[2024-04-08 07:35] LABS: Basophil% 0.4 % (0-1); Eosinophils% 0.6 % (0-5); Lymphocyte % 22.9 % (19-41); Monocyte# 0.92 X10^3/uL; Monocyte% 6.9 % (0-10); Neutrophil % 68.4 % (47-70)
[2024-04-08 07:36] LABS: Basophil# 0.05 X10^3/uL; Eosinophil# 0.08 X10^3/uL; Lymphocyte # 3.06 X10^3/ul (0.83-4.51); Neutrophil # 9.13 X10^3/uL (2.7-7.7)
[2024-04-08 08:15] LABS: Anion Gap 7 (5-15); BUN 20 mg/dL (7-18); BUN/Creat Ratio 19.6 RATIO (10-20); Calcium,Total 9.3 mg/dL (8.5-10.1); Chloride 101 mmol/L (98-107); Creatinine, Serum 1.02 mg/dL (0.55-1.02); EST Glomerular Filtration Rate 58 mL/min (>60); Est Glom Filt Rate - Afr Amer 70 mL/min (>60); Estimated Creatinine Clearance 62.65 ml/min; Glucose 135 mg/dL (74-106); Potassium 3.3 mmol/L (3.5-5.1); Sodium Level 137 mmol/L (136-145)
== END 2024-04-08 07:00 | disposition home or self-care (01) ==
PROVIDERS: Emergency Provider Emergency Medicine; PCP Internal Medicine; Visit Provider Emergency Medicine
DX: R10.9 Unspecified abdominal pain (principal); F31.9 Bipolar disorder, unspecified; J44.9 Chronic obstructive pulmonary disease, unspecified; E11.22 Type 2 diabetes mellitus with diabetic chronic kidney disease; Z79.4 Long term (current) use of insulin; N28.89 Other specified disorders of kidney and ureter; F17.210 Nicotine dependence, cigarettes, uncomplicated; Z79.899 Other long term (current) drug therapy; Z79.01 Long term (current) use of anticoagulants; E78.00 Pure hypercholesterolemia, unspecified; Z79.51 Long term (current) use of inhaled steroids; Z79.84 Long term (current) use of oral hypoglycemic drugs; F41.9 Anxiety disorder, unspecified; K21.9 Gastro-esophageal reflux disease without esophagitis; I10 Essential (primary) hypertension
CPT/HCPCS: 99282; 74176; 80048; 81001; 85025; 96374; 99285; J7040; A4216

== ENCOUNTER 2024-09-12 22:04 | Emergency (ER) | payer MEDICARE, MEDICAID, SELFPAY ==
[2024-09-12 22:06] VITALS: BP 90/52; PULSE 78; RESP 15; TEMP 36.5; O2SAT 97; BMI 38.1
--- NOTE | 2024-09-12 22:22 | CT_ITS ---
PROCEDURE: ABDOMEN/PELVIS WITHOUT CONT REASON FOR EXAM: Flank pain TECHNIQUE: Abdomen and pelvis CT without contrast COMPARISON: None. FINDINGS: 5 mm right lower pole stone is seen. 3 mm right midpole stone is seen Apparent enlargement of a right midpole lesion possibly cystic although solid renal lesion not excluded. Reference 104 on axial imaging. It measures about 2.3 cm. Small 4 mm left exophytic calcification. No hydronephrosis seen bilaterally Bronchial thickening detected. Lingular atelectasis fairly pronounced hepatic steatosis with geographic areas of more focal fatty infiltration. Cholecystectomy changes. Moderate vascular calcification. No aneurysm. Diverticulosis. No diverticulitis. Uterus is not seen presumed removed. Low- lying urinary bladder. Spinal stimulating device detected. No fluid collections. No free air. Postsurgical changes seen left hip cause pelvic artifact. Demineralization of the bones. CT/Abdomen/Pelvis without Cont IMPRESSION: Nonobstructive right nephroliths. There does appear to be a cystic lesion seen in the right kidney which appears to be more prominent. This is possibly a hyperdense cyst. If the patient has not had a r enal MRI, further evaluation advised to exclude renal neoplasm. Enlarged liver with hepatic steatosis and more ill-defined areas of geographic fatty infiltration. Diverticulosis. No diverticulitis. One or more dose reduction techniques were used (e.g., Automated exposure contr ol, adjustment of the mA and/or kV according to patient size, use of iterative reconstruction technique). Reading Location: [id number]
--- NOTE | 2024-09-12 22:24 | EDS_ITS ---
HPI HPI - GI History of Present Illness Chief Complaint: Flank Pain Informant: patient and EMS Narrative Narrative: 63-year-old longterm patient presenting with pain in her right flank that started around 7 or 8 hours ago, associate with nausea and vomiting but she woke up this past morning at 3 AM with nausea and some dry heaving without the pain. She was feeling poorly since then and then the pain started that feels like a kidney stone that she has had in the past. Last time she had a kidney stone was 3 months or so ago. She has seen a urologist in [place] but she cannot remember who it was. She denies any hematuria she is on Eliquis. She denies any cough, shortness of breath, fevers or chills or other symptoms. [facility] Medical History Lives in longterm Hx of fracture of hip Wears glasses Wears dentures Post-menopausal Depression Alcohol use Substance abuse Open wound Uses wheelchair Arthritis High cholesterol Restless legs Back pain Smoker Asthma Shortness of breath on exertion History of edema Tobacco abuse Insulin dependent diabetes mellitus 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 GERD (gastroesophageal reflux disease) Anxiety Schizophrenia Hyperlipidemia Insomnia Neuralgia and neuritis Spondylosis Mild asthma Cerebral vascular disease Hypertension Home Medications ?Medication ?Instructions ?Recorded ?Last Taken ?Type amlodipine 5 mg tablet 5 mg PO DAILY blood pressure 03/08/19 03/08/19 History ondansetron HCl 4 mg tablet 4 mg PO Q6H PRN PRN Nausea 03/08/19 Unknown History prazosin 1 mg capsule 1 mg PO QHS nightmares 03/0803/07/19 20:00 History albuterol sulfate 2.5 mg/3 mL 2.5 mg inhalation Q4H TX N SOB 07/29/21 Unknown History (0.083 %) solution for nebulization apixaban 5 mg tablet (Eliquis) 5 mg PO BID 07/29/21 History lurasidone 80 mg tablet (Latuda) 80 mg PO DAILY Unknown History naloxegol 25 mg tablet (Movantik) 25 mg PO DAILY 07/29 Unknown History pantoprazole 40 mg tablet,delayed 40 mg PO DAILY 07/29 Unknown History release acetaminophen 325 mg tablet 650 mg PO Q6H PRN PRN feve r or pain 12/18/22 Unknown History aluminum-mag hydroxide-simethicone 5 ml PO .Q3H PRN TX N indigestion 12/18/22 Unknown History 400 mg-400 mg-40 mg/5 mL oral susp (Maalox Maximum Strength) atenolol 25 mg tablet 25 mg PO DAILY 12/18/22 Unkn own History atorvastatin 80 mg tablet 40 mg PO QHS cholesterol 01/04 Unknown History baclofen 5 mg tablet 5 mg PO TID 12/18/22 Unknown History benzonatate 100 mg capsule 100 mg PO Q8H PRN cough 01/04 Unknown History bisacodyl 10 mg rectal suppository 10 mg TX .Q24 PRN P RN constipation 12/18/22 Unknown History (Dulcolax (bisacodyl)) bisacodyl 5 mg tablet,delayed 5 mg PO Q8H PRN PRN cons tipation 12/18/22 Unknown History release (Dulcolax (bisacodyl)) cholecalciferol (vitamin D3) 125 125 mcg PO DAILY 01/04 Unknown History mcg (5,000 unit) capsule diclofenac sodium 1 % topical gel 2 g topical Q8H PRN PRN pain 12/18/22 Unknown History epinephrine 0.3 mg/0.3 mL 0.3 mg IM Q5-15M PRN anaphyl axis 12/18/22 Unknown History injection, auto-injector (EpiPen) flash glucose sensor (FreeStyle 12/18/22 Unknown Hist ory Cynthia 2 Sensor kit) fluticasone fur. 200 mcg-umeclid 1 inh inhalation ROCIO Y 12/18/22 Unknown History 62.5 mcg-vilant 25 mcg inhalat.powder (Trelegy Ellipta) fluticasone propionate 50 2 spray intranasal DAILY 01/04 Unknown History mcg/actuation nasal spray,suspension (Flonase Allergy Relief) guaifenesin 100 mg/5 mL oral liquid 200 mg PO Q4H PRN cough 12/18/22 Unknown History hydroxyzine pamoate 25 mg capsule 25 mg PO QHS 3 Unknown History (Vistaril) insulin glargine U-300 conc 300 100 unit subcut BID Unknown History unit/mL (1.5 mL) subcutaneous pen (Toujeo SoloStar U-300 Insulin) ipratropium 0.5 mg-albuterol 3 mg 3 ml inhalation BID PRN shortness 12/18/22 Unknown History (2.5 mg base)/3 mL nebulization of breath soln ipratropium 20 mcg-albuterol 100 1 puff inhalation Q6H PRN 12/18/22 Unknown History mcg/actuation mist for inhalation shortness of breath or wheezing (Combivent Respimat) ipratropium bromide 21 mcg (0.03 2 spray intranasal BI D 12/18/22 Unknown History %) nasal spray lisinopril 2.5 mg tablet 2.5 mg PO DAILY 12/18/22 Unk nown History loratadine 10 mg tablet (Claritin) 10 mg PO DAILY 01/04 Unknown History melatonin 3 mg capsule 3 mg PO HS 12/18/22 Unknown History metformin 500 mg tablet 500 mg PO BID 12/18/2202/06 05:30 History montelukast 10 mg tablet 10 mg PO DAILY 12/18/22 Unkn own History naloxone 0.4 mg/mL injection 0.2 mg subcut ONCE PRN op ioid 12/18/22 Unknown History solution reversal olanzapine 10 mg tablet (Zyprexa) 10 mg PO QPM 3 Unknown History polyethylene glycol 3350 17 17 g PO DAILY PRN constipa tion 12/18/22 Unknown History gram/dose oral powder (Miralax) tizanidine 2 mg tablet 2 mg PO Q12H PRN muscle spas ticity 12/18/22 Unknown History duloxetine 60 mg capsule,delayed 60 mg PO BID 01/16/23 Unknown History release (Cymbalta) potassium chloride 20 mEq 20 meq PO DAILY 01/16/23 Unk nown History tablet,extended release pregabalin 100 mg capsule 100 mg PO BID 01/16/23 Unkno wn History furosemide 20 mg tablet 60 mg (3 x 20 mg) PO QAM #90 tabs 11/24/23 Unknown Rx Lactobacillus rhamnosus GG 10 1 cap PO BID 11/27/23 Un known History billion cell capsule (Culturelle) buspirone 5 mg tablet 5 mg PO BID 11/27/23 Unknown History insulin lispro 100 unit/mL 1 sliding scale dose subcut TID 11/27/23 Unknown History subcutaneous pen (Humalog KwikPen (U-100) Insulin) insulin lispro 100 unit/mL 44 unit subcut LUNCH Unknown History subcutaneous pen (Humalog KwikPen (U-100) Insulin) loperamide 2 mg capsule 4 mg PO BID PRN loose stool 11/27/23 Unknown History (Anti-Diarrheal (loperamide)) carboxymethylcellulose sodium 0.5 1 drp EACH EYE BID 0 01/30/24 Unknown History % eye drops (Refresh Tears) cyclosporine 0.05 % eye drops in a 1 drp EACH EYE Q12H 01/30/24 Unknown History dropperette (Restasis) insulin glargine U-300 conc 300 100 unit subcut BID Unknown History unit/mL (3 mL) subcutaneous pen (Toujeo Max U-300 SoloStar) insulin lispro 100 unit/mL 44 unit subcut DAILY Unknown History subcutaneous pen (Humalog KwikPen (U-100) Insulin) insulin lispro 100 unit/mL 48 unit subcut DINNER 01/29 Unknown History subcutaneous pen (Humalog KwikPen (U-100) Insulin) oxycodone-acetaminophen 5 mg-325 1 tab PO Q12H PRN PRN pain 01/30/24 Unknown History mg tablet semaglutide 0.25 mg or 0.5 mg (2 0.5 mg subcut FR 01/12 03/07 Unknown History mg/1.5 mL) subcutaneous pen injector (Ozempic) semaglutide 0.25 mg or 0.5 mg (2 0.25 mg subcut .CHAYO Y 01/30/24 Unknown History mg/3 mL) subcutaneous pen injector (Ozempic) Allergy/AdvReac Type Severity Reaction Status Date / Time apricot Allergy Unknown PT UNSURE Verified 09/12/24 22:12 OF REACTION BCG (Bacillus Allergy Unknown Other Verified 04/08/24 00:53 Calmette-Zohra) vacc bee venom protein (honey Allergy Unknown Other Verified 09/12/24 22:12 bee) (bee sting) corn Allergy Unknown Other Verified 09/12/24 22:12 Milk Containing Products Allergy Unknown Other Verified 09/12/24 22:12 (Dairy) peas Allergy Unknown Other Verified 09/12/24 22:12 tomato Allergy Unknown Other Verified 09/12/24 22:12 Iodinated Contrast Media Allergy Hives Verified 09/12/24 22:12 (Iodinated Contrast Media - IV Dye) amoxicillin trihydrate (From AdvReac Itching Verified 09/12/24 22:12 Augmentin) hydrocodone (From Vicodin) AdvReac Unknown Verified 09/12/24 22:12 potassium clavulanate (From AdvReac Itching Verified 09/12/24 22:12 Augmentin) prednisone AdvReac Unknown Verified 09/12/24 22:12 shellfish derived AdvReac Itching Verified 09/12/24 22:12 Surgical History History of History of tubal ligation History of hysterectomy History of cholecystectomy History of appendectomy S/P right rotator cuff repair Social History Smoking Status: Current every day smoker tobacco type: cigarettes ROS ROS ED Constitutional Constitutional ED: Denies chills or fever(s) Eyes Eyes: Denies change in vision or diplopia ENT ENT ED: Denies rhinorrhea or sore throat Cardiovascular Cardiovascular: Denies chest pain or palpitations Respiratory/Chest Respiratory/Chest: Denies cough or dyspnea Gastrointestinal Gastrointestinal: Reports abdominal pain and nausea; Denies diarrhea or vomiting Genitourinary Genitourinary ED: Reports as per HPI and flank pain; Denies dysuria or hematuria Musculoskeletal Musculoskeletal: Reports back pain; Denies neck pain Integumentary Denies abscess or rash Neurologic Neurologic: Denies headache(s), paresthesias or weakness Psychiatric Psychiatric: Reports anxiety; Denies suicidal thoughts EXAM Physical Exam Const Vital Signs: 09/12/24 22:06 09/12/24 23:29 Temperature 97.7 F L Temperature Source Oral Pulse Rate 78 Respiratory Rate 15 Blood Pressure 90/52 L Blood Pressure Mean 64 Pulse Ox 97 90 Oxygen Delivery Method Room Air Nasal Cannula Oxygen Flow Rate (L/min) 2 Positive well nourished, well developed and obese General Appearance ED: well developed and NAD Nutritional Appearance: obese HEENT Reports moist mucous membranes normocephalic and atraumatic Eyes PERRL and EOMs intact bilaterally Neck full ROM and supple Resp normal respiratory effort and clear to auscultation bilaterally Cardio regular rate, regular rhythm and no murmurs GI non-distended GI Narrative: Tender throughout right side without guarding or rebound. Exam limited by truncal obesity. Auscultation: normoactive bowel sounds Palpation: soft Back/Spine General Back: CVA tenderness right (Subjective. Normal inspection no rash) and other FROM Extremity normal to inspection General Extremety ED: Negative for edema, pulses abnormal or tenderness General Extremity: Negative for edema or pulses abnormal Neuro oriented x3 and CN's II-XII intact bilaterally Neuro Narrative: Weak on right side, baseline per patient status post old stroke Sensorium / Orientation: awake and alert Skin no rashes or lesions noted and no wounds MDM MDM MDM Narrative Medical decision making narrative: Patient was given Zofran by EMS and her nausea feels a lot better. We gave her morphine, and ordered a urinalysis and a CT but also some blood work and give her a bolus of fluid only because her blood pressure is soft, 90/52. She does not appear to be symptomatic from this. The rest of her vital signs are normal. After the fluids her blood pressure is 134/67, pain is better after pain medication she asked for a second dose which was given. Her urinalysis shows
--- NOTE | 2024-09-12 22:24 | ED.VIS.GI ---
HPI HPI - GI History of Present Illness Chief Complaint: Flank Pain Informant: patient and EMS Narrative Narrative: 63-year-old senior living patient presenting with pain in her right flank that started around 7 or 8 hours ago, associate with nausea and vomiting but she woke up this past morning at 3 AM with nausea and some dry heaving without the pain. She was feeling poorly since then and then the pain started that feels like a kidney stone that she has had in the past. Last time she had a kidney stone was 3 months or so ago. She has seen a urologist in [place] but she cannot remember who it was. She denies any hematuria she is on Eliquis. She denies any cough, shortness of breath, fevers or chills or other symptoms. [facility] Medical History Lives in senior living Hx of fracture of hip Wears glasses Wears dentures Post-menopausal Depression Alcohol use Substance abuse Open wound Uses wheelchair Arthritis High cholesterol Restless legs Back pain Smoker Asthma Shortness of breath on exertion History of edema Tobacco abuse Insulin dependent diabetes mellitus 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 GERD (gastroesophageal reflux disease) Anxiety Schizophrenia Hyperlipidemia Insomnia Neuralgia and neuritis Spondylosis Mild asthma Cerebral vascular disease Hypertension Home Medications ?Medication ?Instructions ?Recorded ?Last Taken ?Type amlodipine 5 mg tablet 5 mg PO DAILY blood pressure 03/08/19 03/08/19 History ondansetron HCl 4 mg tablet 4 mg PO Q6H PRN PRN Nausea 03/08/19 Unknown History prazosin 1 mg capsule 1 mg PO QHS nightmares 03/08/19 03/07/19 20:00 History albuterol sulfate 2.5 mg/3 mL 2.5 mg inhalation Q4H PRN SOB 07/29/21 Unknown History (0.083 %) solution for nebulization apixaban 5 mg tablet (Eliquis) 5 mg PO BID 07/29/21 02/06/24 History lurasidone 80 mg tablet (Latuda) 80 mg PO DAILY 07/29/21 Unknown History naloxegol 25 mg tablet (Movantik) 25 mg PO DAILY 07/29/21 Unknown History pantoprazole 40 mg tablet,delayed 40 mg PO DAILY 07/29/21 Unknown History release acetaminophen 325 mg tablet 650 mg PO Q6H PRN PRN fever or pain 12/18/22 Unknown History aluminum-mag hydroxide-simethicone 5 ml PO .Q3H PRN PRN indigestion 12/18/22 Unknown History 400 mg-400 mg-40 mg/5 mL oral susp (Maalox Maximum Strength) atenolol 25 mg tablet 25 mg PO DAILY 12/18/22 Unknown History atorvastatin 80 mg tablet 40 mg PO QHS cholesterol 12/18/22 Unknown History baclofen 5 mg tablet 5 mg PO TID 12/18/22 Unknown History benzonatate 100 mg capsule 100 mg PO Q8H PRN cough 12/18/22 Unknown History bisacodyl 10 mg rectal suppository 10 mg [place] .Q24 PRN PRN constipation 12/18/22 Unknown History (Dulcolax (bisacodyl)) bisacodyl 5 mg tablet,delayed 5 mg PO Q8H PRN PRN constipation 12/18/22 Unknown History release (Dulcolax (bisacodyl)) cholecalciferol (vitamin D3) 125 125 mcg PO DAILY 12/18/22 Unknown History mcg (5,000 unit) capsule diclofenac sodium 1 % topical gel 2 g topical Q8H PRN PRN pain 12/18/22 Unknown History epinephrine 0.3 mg/0.3 mL 0.3 mg IM Q5-15M PRN anaphylaxis 12/18/22 Unknown History injection, auto-injector (EpiPen) flash glucose sensor (FreeStyle 12/18/22 Unknown History Cynthia 2 Sensor kit) fluticasone fur. 200 mcg-umeclid 1 inh inhalation DAILY 12/18/22 Unknown History 62.5 mcg-vilant 25 mcg inhalat.powder (Trelegy Ellipta) fluticasone propionate 50 2 spray intranasal DAILY 12/18/22 Unknown History mcg/actuation nasal spray,suspension (Flonase Allergy Relief) guaifenesin 100 mg/5 mL oral liquid 200 mg PO Q4H PRN cough 12/18/22 Unknown History hydroxyzine pamoate 25 mg capsule 25 mg PO QHS 12/18/22 Unknown History (Vistaril) insulin glargine U-300 conc 300 100 unit subcut BID 12/18/22 Unknown History unit/mL (1.5 mL) subcutaneous pen (Nasir SoloStar U-300 Insulin) ipratropium 0.5 mg-albuterol 3 mg 3 ml inhalation BID PRN shortness 12/18/22 Unknown History (2.5 mg base)/3 mL nebulization of breath soln ipratropium 20 mcg-albuterol 100 1 puff inhalation Q6H PRN 12/18/22 Unknown History mcg/actuation mist for inhalation shortness of breath or wheezing (Combivent Respimat) ipratropium bromide 21 mcg (0.03 2 spray intranasal BID 12/18/22 Unknown History %) nasal spray lisinopril 2.5 mg tablet 2.5 mg PO DAILY 12/18/22 Unknown History loratadine 10 mg tablet (Claritin) 10 mg PO DAILY 12/18/22 Unknown History melatonin 3 mg capsule 3 mg PO HS 12/18/22 Unknown History metformin 500 mg tablet 500 mg PO BID 12/18/22 02/07/24 05:30 History montelukast 10 mg tablet 10 mg PO DAILY 12/18/22 Unknown History naloxone 0.4 mg/mL injection 0.2 mg subcut ONCE PRN opioid 12/18/22 Unknown History solution reversal olanzapine 10 mg tablet (Zyprexa) 10 mg PO QPM 12/18/22 Unknown History polyethylene glycol 3350 17 17 g PO DAILY PRN constipation 12/18/22 Unknown History gram/dose oral powder (Miralax) tizanidine 2 mg tablet 2 mg PO Q12H PRN muscle spasticity 12/18/22 Unknown History duloxetine 60 mg capsule,delayed 60 mg PO BID 01/16/23 Unknown History release (Cymbalta) potassium chloride 20 mEq 20 meq PO DAILY 01/16/23 Unknown History tablet,extended release pregabalin 100 mg capsule 100 mg PO BID 01/16/23 Unknown History furosemide 20 mg tablet 60 mg (3 x 20 mg) PO QAM #90 tabs 11/24/23 Unknown Rx Lactobacillus rhamnosus GG 10 1 cap PO BID 11/27/23 Unknown History billion cell capsule (Culturelle) buspirone 5 mg tablet 5 mg PO BID 11/27/23 Unknown History insulin lispro 100 unit/mL 1 sliding scale dose subcut TID 11/27/23 Unknown History subcutaneous pen (Humalog KwikPen (U-100) Insulin) insulin lispro 100 unit/mL 44 unit subcut LUNCH 11/27/23 Unknown History subcutaneous pen (Humalog KwikPen (U-100) Insulin) loperamide 2 mg capsule 4 mg PO BID PRN loose stool 11/27/23 Unknown History (Anti-Diarrheal (loperamide)) carboxymethylcellulose sodium 0.5 1 drp EACH EYE BID 01/30/24 Unknown History % eye drops (Refresh Tears) cyclosporine 0.05 % eye drops in a 1 drp EACH EYE Q12H 01/30/24 Unknown History dropperette (Restasis) insulin glargine U-300 conc 300 100 unit subcut BID 01/30/24 Unknown History unit/mL (3 mL) subcutaneous pen (Toujeo Max U-300 SoloStar) insulin lispro 100 unit/mL 44 unit subcut DAILY 01/30/24 Unknown History subcutaneous pen (Humalog KwikPen (U-100) Insulin) insulin lispro 100 unit/mL 48 unit subcut DINNER 01/30/24 Unknown History subcutaneous pen (Humalog KwikPen (U-100) Insulin) oxycodone-acetaminophen 5 mg-325 1 tab PO Q12H PRN PRN pain 01/30/24 Unknown History mg tablet semaglutide 0.25 mg or 0.5 mg (2 0.5 mg subcut FR 01/30/24 Unknown History mg/1.5 mL) subcutaneous pen injector (Ozempic) semaglutide 0.25 mg or 0.5 mg (2 0.25 mg subcut .Saturday01/30/24 Unknown History mg/3 mL) subcutaneous pen injector (Ozempic) Allergy/AdvReac Type Severity Reaction Status Date / Time apricot Allergy Unknown PT UNSURE Verified 09/12/24 22:12 OF REACTION BCG (Bacillus Allergy Unknown Other Verified 04/08/24 00:53 Calmette-Zohra) vacc bee venom protein (honey Allergy Unknown Other Verified 09/12/24 22:12 bee) (bee sting) corn Allergy Unknown Other Verified 09/12/24 22:12 Milk Containing Products Allergy Unknown Other Verified 09/12/24 22:12 (Dairy) peas Allergy Unknown Other Verified 09/12/24 22:12 tomato Allergy Unknown Other Verified 09/12/24 22:12 Iodinated Contrast Media Allergy Hives Verified 09/12/24 22:12 (Iodinated Contrast Media - IV Dye) amoxicillin trihydrate (From AdvReac Itching Verified 09/12/24 22:12 Augmentin) hydrocodone (From Vicodin) AdvReac Unknown Verified 09/12/24 22:12 potassium clavulanate (From AdvReac Itching Verified 09/12/24 22:12 Augmentin) prednisone AdvReac Unknown Verified 09/12/24 22:12 shellfish derived AdvReac Itching Verified 09/12/24 22:12 Surgical History History of History of tubal ligation History of hysterectomy History of cholecystectomy History of appendectomy S/P right rotator cuff repair Social History Smoking Status: Current every day smoker tobacco type: cigarettes ROS ROS ED Constitutional Constitutional ED: Denies chills or fever(s) Eyes Eyes: Denies change in vision or diplopia ENT ENT ED: Denies rhinorrhea or sore throat Cardiovascular Cardiovascular: Denies chest pain or palpitations Respiratory/Chest Respiratory/Chest: Denies cough or dyspnea Gastrointestinal Gastrointestinal: Reports abdominal pain and nausea; Denies diarrhea or vomiting Genitourinary Genitourinary ED: Reports as per HPI and flank pain; Denies dysuria or hematuria Musculoskeletal Musculoskeletal: Reports back pain; Denies neck pain Integumentary Denies abscess or rash Neurologic Neurologic: Denies headache(s), paresthesias or weakness Psychiatric Psychiatric: Reports anxiety; Denies suicidal thoughts EXAM Physical Exam Const Vital Signs: 09/12/24 22:06 09/12/24 23:29 Temperature 97.7 F L Temperature Source Oral Pulse Rate 78 Respiratory Rate 15 Blood Pressure 90/52 L Blood Pressure Mean 64 Pulse Ox 97 90 Oxygen Delivery Method Room Air Nasal Cannula Oxygen Flow Rate (L/min) 2 Positive well nourished, well developed and obese General Appearance ED: well developed and NAD Nutritional Appearance: obese HEENT Reports moist mucous membranes normocephalic and atraumatic Eyes PERRL and EOMs intact bilaterally Neck full ROM and supple Resp normal respiratory effort and clear to auscultation bilaterally Cardio regular rate, regular rhythm and no murmurs GI non-distended GI Narrative: Tender throughout right side without guarding or rebound. Exam limited by truncal obesity. Auscultation: normoactive bowel sounds Palpation: soft Back/Spine General Back: CVA tenderness right (Subjective. Normal inspection no rash) and other FROM Extremity normal to inspection General Extremety ED: Negative for edema, pulses abnormal or tenderness General Extremity: Negative for edema or pulses abnormal Neuro oriented x3 and CN's II-XII intact bilaterally Neuro Narrative: Weak on right side, baseline per patient status post old stroke Sensorium / Orientation: awake and alert Skin no rashes or lesions noted and no wounds MDM MDM MDM Narrative Medical decision making narrative: Patient was given Zofran by EMS and her nausea feels a lot better. We gave her morphine, and ordered a urinalysis and a CT but also some blood work and give her a bolus of fluid only because her blood pressure is soft, 90/52. She does not appear to be symptomatic from this. The rest of her vital signs are normal. After the fluids her blood pressure is 134/67, pain is better after pain medication she asked for a second dose which was given. Her urinalysis shows blood and urate amorphous sediment but no signs of infection. She has a leukocytosis. Renal sufficiency noted, it is mild, 1.29 and her last creatinine was 1.02 in March. Not necessarily acute. The rest of her vital signs of remained stable and normal. I did do a CT of the abdomen/pelvis, I reviewed the images as well as the report which I agree with. There is no sign of any acute infection here. This includes the bases of the lungs. There is no obstructive uropathy. There are couple of nonobstructing nephroliths. It is possible that one of them could be ball valving, but there is no sign of hydronephrosis or perinephric stranding to suggest that she had hydronephrosis recently or pyelonephritis. She does not have any other symptoms to suggest that other emergent studies are needed, she is not febrile here, her vital signs are normal and she does not appear septic. She is fairly anxious. She has a history of psychiatric illness and she has a history of chronic pain. At this time I think she is stable to be discharged back to the senior living. History & Record Review Additional record(s) reviewed:: Prior labs Lab Data Attestation: I reviewed the patient's lab results. Labs: Laboratory Results - last 24 hr 09/12/24 09/12/24 22:13 22:53 WBC 16.8 H RBC 5.09 Hgb 14.7 Hct 45.5 MCV 89.4 MCH 28.9 MCHC 32.3 RDW Std Deviation 44.4 H RDW Coeff of Gael 13.6 Plt Count 272 MPV 10.2 Immature Gran % (Auto) 0.700 Neut % (Auto) 77.4 H Lymph % (Auto) 14.6 L [place] % (Auto) 6.7 Eos % (Auto) 0.2 Baso % (Auto) 0.4 Absolute Neuts (auto) 13.0 H Absolute Lymphs (auto) 2.44 Nucleated RBC % 0 Sodium 132 L Potassium 4.3 Chloride Direct 94 L Carbon Dioxide 23.3 Anion Gap 14 BUN 21 H Creatinine 1.29 H Estim Creat Clear Calc 50.34 Est GFR (MDRD) Non-Af 47 L BUN/Creatinine Ratio 16.2 Glucose 239 H Calcium 9.3 Urine Color Yellow Urine Clarity Sl. Cloudy Urine pH 5.0 Ur Specific [place] 1.020 Urine Protein 15 H Urine Glucose (UA) Normal Urine Ketones Negative Urine Occult Blood 250 H Urine Nitrite Negative Urine Bilirubin Negative Urine Urobilinogen Normal Ur Leukocyte Esterase 25 H Urine RBC 25-50 SEEN Urine WBC 0-5 SEEN Ur Squamous Epith Cells 0-5 SEEN Amorphous Sediment 1+ URATE Urine Bacteria 0 SEEN Urine Mucus 0 SEEN Radiography Diagnostic Testing: Clinical Impression(s) from Imaging Studies Abdomen/Pelvis CT 09/12/24 22:22 IMPRESSION: Nonobstructive right nephroliths. There does appear to be a cystic lesion seen in the right kidney which appears to be more prominent. This is possibly a hyperdense cyst. If the patient has not had a renal MRI, further evaluation advised to exclude renal neoplasm. Enlarged liver with hepatic steatosis and more ill-defined areas of geographic fatty infiltration. Diverticulosis. No diverticulitis. One or more dose reduction techniques were used (e.g., Automated exposure control, adjustment of the mA and/or kV according to patient size, use of iterative reconstruction technique). Reading Location: [facility] Discharge Plan Triage Chief Complaint: Flank Pain ED Provider: Dino Pena Dx/Rx/DC Orders Clinical Impression: Acute right flank pain, Right nephrolithiasis, Hematuria, microscopic, Hyperglycemia due to type 2 diabetes mellitus Instructions: ED Flank Pain, Uncertain Cause, ED Kidney Stone No Sx Prescriptions: No Action acetaminophen 325 mg tablet 650 mg PO Q6H PRN PRN (Reason: fever or pain) atenolol 25 mg tablet 25 mg PO DAILY baclofen 5 mg tablet 5 mg PO TID benzonatate 100 mg capsule 100 mg PO Q8H PRN (Reason: cough) loratadine [Claritin] 10 mg tablet 10 mg PO DAILY Combivent Respimat 20-100 mcg/actuation mist 1 puff inhalation Q6H PRN (Reason: shortness of breath or wheezing) diclofenac sodium 1 % gel 2 g topical Q8H PRN PRN (Reason: pain) Rx Instructions: apply to single elbow, wrist or hand; for hand includes palm/fingers/back of hand bisacodyl [Dulcolax (bisacodyl)] 5 mg tablet,delayed release (DR/EC) 5 mg PO Q8H PRN PRN (Reason: constipation) bisacodyl [Dulcolax (bisacodyl)] 10 mg suppository 10 mg [place] .Q24 PRN PRN (Reason: constipation) epinephrine [EpiPen] 0.3 mg/0.3 mL auto-injector 0.3 mg IM Q5-15M PRN (Reason: anaphylaxis) Rx Instructions: do not exceed 3 doses per episode fluticasone propionate [Flonase Allergy Relief] 50 mcg/actuation spray,suspension 2 spray intranasal DAILY Rx Instructions: administer into each nostril (DME) FreeStyle Cynthia 2 Sensor Kit See Rx Instructions .Route Rx Instructions: As directed guaifenesin 100 mg/5 mL liquid 200 mg PO Q4H PRN (Reason: cough) ipratropium bromide 21 mcg (0.03 %) spray,non-aerosol 2 spray intranasal BID Rx Instructions: administer into each nostril ipratropium-albuterol 0.5 mg-3 mg(2.5 mg base)/3 mL solution for nebulization 3 ml inhalation BID PRN (Reason: shortness of breath) lisinopril 2.5 mg tablet 2.5 mg PO DAILY alum-mag hydroxide-simeth [Maalox Maximum Strength] 400-400-40 mg/5 mL suspension 5 ml PO .Q3H PRN PRN (Reason: indigestion) melatonin 3 mg capsule 3 mg PO HS metformin 500 mg tablet 500 mg PO BID polyethylene glycol 3350 [Miralax] 17 gram/dose powder 17 g PO DAILY PRN (Reason: constipation) montelukast 10 mg tablet 10 mg PO DAILY naloxone 0.4 mg/mL solution 0.2 mg subcut ONCE PRN (Reason: opioid reversal) tizanidine 2 mg tablet 2 mg PO Q12H PRN (Reason: muscle spasticity) insulin glargine U-300 conc [Toujeo SoloStar U-300 Insulin] 300 unit/mL (1.5 mL) insulin pen 100 unit subcut BID Trelegy Ellipta 200-62.5-25 mcg blister with device 1 inh inhalation DAILY hydroxyzine pamoate [Vistaril] 25 mg capsule 25 mg PO QHS cholecalciferol (vitamin D3) 125 mcg (5,000 unit) capsule 125 mcg PO DAILY olanzapine [Zyprexa] 10 mg tablet 10 mg PO QPM duloxetine [Cymbalta] 60 mg capsule,delayed release(DR/EC) 60 mg PO BID potassium chloride 20 mEq tablet extended release 20 meq PO DAILY pregabalin 100 mg capsule 100 mg PO BID atorvastatin 80 mg tablet 40 mg PO QHS prazosin 1 MG capsule 1 mg PO QHS amlodipine 5 MG tablet 5 mg PO DAILY ondansetron HCl 4 MG tablet 4 mg PO Q6H PRN PRN (Reason: Nausea) albuterol sulfate 2.5 mg /3 mL (0.083 %) Solution For Nebulization 2.5 mg INHALATION Q4H PRN (Reason: SOB) pantoprazole 40 mg Tablet,Delayed Release (Dr/Ec) 40 mg PO DAILY lurasidone [Latuda] 80 mg Tablet 80 mg PO DAILY Eliquis 5 mg Tablet 5 mg PO BID Movantik 25 mg Tablet 25 mg PO DAILY insulin lispro [Humalog KwikPen Insulin] 100 unit/mL insulin pen 44 unit subcut DAILY insulin lispro [Humalog KwikPen Insulin] 100 unit/mL insulin pen 48 unit subcut DINNER oxycodone-acetaminophen 5-325 mg tablet 1 tab PO Q12H PRN PRN (Reason: pain) Ozempic 0.25 mg or 0.5 mg (2 mg/3 mL) pen injector 0.25 mg subcut .SATURDAY Rx Instructions: LAST DOSE 02/21/24 Ozempic 0.25 mg or 0.5 mg(2 mg/1.5 mL) pen injector 0.5 mg subcut FR Rx Instructions: for 4 weeks cyclosporine [Restasis] 0.05 % dropperette 1 drp EACH EYE Q12H carboxymethylcellulose sodium [Refresh Tears] 0.5 % drops 1 drp EACH EYE BID insulin glargine U-300 conc [Toujeo Max U-300 SoloStar] 300 unit/mL (3 mL) insulin pen 100 unit subcut BID buspirone 5 mg tablet 5 mg PO BID Culturelle 10 billion cell capsule 1 cap PO BID insulin lispro [Humalog KwikPen Insulin] 100 unit/mL insulin pen 1 sliding scale dose subcut TID Rx Instructions: PRIOR TO MEALS insulin lispro [Humalog KwikPen Insulin] 100 unit/mL insulin pen 44 unit subcut LUNCH loperamide [Anti-Diarrheal (loperamide)] 2 mg capsule 4 mg PO BID PRN (Reason: loose stool) furosemide 20 mg tablet 60 mg PO QAM Qty: 90 0RF Primary Care Provider: Mariah Atkinson Referrals: Bianca Irwin MD [Non-Staff -Ordering Privileges] - 3-5 Days if not improving Activity Restrictions/Additional Instructions: You have 2 kidney stones in the right kidney right now that are not blocking anything or causing your pain. It is possible that you recently passed a stone and these are the 2 that are currently upstream in the kidney and unrelated to your pain. If this is the case your pain should resolve within half a day or less. If it persists, follow-up with your doctor. Print Language: Sammarinese Disposition Disposition: Home, Self Care
[2024-09-12 22:32] LABS: Absolute Lymphocyte Count 2.44 X10^3/uL (0.83-4.51); Basophil# 0.07 X10^3/uL; Basophil% 0.4 % (0-1); Eosinophil# 0.03 X10^3/uL; Eosinophils% 0.2 % (0-5); Hematocrit 45.5 % (37-47); Hemoglobin 14.7 g/dL (12.0-15.0); Lymphocyte # 2.44 X10^3/ul (0.83-4.51); Lymphocyte % 14.6 % (19-41); Mean Corp Hgb Conc 32.3 g/dL (32-36); Mean Corpuscular Hgb 28.9 pg (27.0-32.0); Mean Corpuscular Volume 89.4 fL (81-99); Mean Platelet Vol. 10.2 fl (6.2-12.0); Monocyte# 1.13 X10^3/uL; Monocyte% 6.7 % (0-10); NRBC Flagged by Analyzer 0 % (0-5); Neutrophil # 12.98 X10^3/uL (2.7-7.7); Neutrophil % 77.4 % (47-70); Platelet Count 272 K/mm3 (150-450); RBC Distribution Width CV 13.6 % (11.6-14.6); RBC Distribution Width SD 44.4 fl (35.1-43.9); Red Blood Count 5.09 M/mm3 (4.2-5.4); White Blood Count 16.8 K/mm3 (4.4-11.0)
[2024-09-12] MEDS: Morphine 4 MG/ML Syringe IV (22:50)
[2024-09-12] MEDS: 0.9% Normal Saline (500mL Bag) 500 ML 999 ML IV (22:51)
[2024-09-12 22:58] LABS: Bacteria 0 SEEN /hpf (None Seen); Mucous, Urine 0 SEEN /hpf (<or=2+)
[2024-09-12 23:02] LABS: Color, Urine Yellow (Yellow); Glucose, Dipstick Normal (Normal); Ketone-Dipstick Negative (Negative); Leukocyte Esterase-Dipstick 25 /ul (Negative); Nitrite-Dipstick Negative (Negative); Occult Blood-Urine 250 /ul (Negative); Protein-Dipstick 15 mg/dl (Negative); Urine Bilirubin Dipstick Negative (Negative); Urine Clarity Sl. Cloudy (Clear); Urine Urobilinogen Normal (Normal)
[2024-09-12 23:09] LABS: Anion Gap 14 (5-15); BUN 21 mg/dL (4-19); BUN/Creat Ratio 16.2 RATIO (10-20); Calcium 9.3 mg/dL (7.6-11.0); Carbon Dioxide 23.3 mmol/L (22.0-29.0); Chloride 94 mmol/L (96-108); Creatinine, Serum 1.29 mg/dL (0.70-1.20); EST Glomerular Filtration Rate 47 (>60); Estimated Creatinine Clearance 50.34 ml/min (50-250); Glucose 239 mg/dL (70-99); Potassium 4.3 mmol/L (3.3-5.1); Sodium Level 132 mmol/L (133-145)
[2024-09-12 23:25] LABS: White Blood Cells 0-5 SEEN /hpf (0-5)
[2024-09-12 23:26] LABS: Amorphous Sediment 1+ URATE; Red Blood Cells-Urine 25-50 SEEN /hpf (0-5); Squamous Epithelial Cells - UA 0-5 SEEN /hpf (5-10)
[2024-09-12 23:29] VITALS: O2SAT 90
[2024-09-13] MEDS: fentaNYL 100 MCG/2 ML Ampul 50 MCG IV (00:14)
[2024-09-13 00:51] VITALS: BP 134/67; PULSE 82; RESP 19; O2SAT 100
[2024-09-13 00:52] VITALS: BP 134/67; PULSE 82; RESP 19; TEMP 36.7; O2SAT 91
--- NOTE | 2024-09-13 00:55 | ED.RN ---
This RN called report to the yossi quintero.
[2024-09-13 02:00] VITALS: PULSE 80; RESP 19; O2SAT 100
[2024-09-13 03:53] VITALS: RESP 16; O2SAT 100
[2024-09-13 04:51] VITALS: BP 111/61; PULSE 77; RESP 19; O2SAT 95
== END 2024-09-13 06:38 | disposition home or self-care (01) ==
PROVIDERS: Emergency Provider Emergency Medicine; PCP Hospitalist; Visit Provider Emergency Medicine
DX: R10.9 Unspecified abdominal pain (principal); E11.65 Type 2 diabetes mellitus with hyperglycemia; Z79.4 Long term (current) use of insulin; R31.29 Other microscopic hematuria; Z90.710 Acquired absence of both cervix and uterus; E78.00 Pure hypercholesterolemia, unspecified; I10 Essential (primary) hypertension; Z79.899 Other long term (current) drug therapy; K21.9 Gastro-esophageal reflux disease without esophagitis; J45.909 Unspecified asthma, uncomplicated; Z79.51 Long term (current) use of inhaled steroids; Z79.84 Long term (current) use of oral hypoglycemic drugs; Z79.85 Long-term (current) use of injectable non-insulin antidiabetic drugs; F41.9 Anxiety disorder, unspecified; F32.A Depression, unspecified; Z79.01 Long term (current) use of anticoagulants; Z98.51 Tubal ligation status; Z90.49 Acquired absence of other specified parts of digestive tract; F17.210 Nicotine dependence, cigarettes, uncomplicated
CPT/HCPCS: 74176; 80048; 81001; 85025; 96361; 96374; 96375; 99285; P9612; A4216

== ENCOUNTER 2024-09-27 01:35 | Emergency (ER) | payer MEDICARE, MEDICAID, SELFPAY ==
[2024-09-27 01:36] VITALS: BP 131/69; PULSE 72; RESP 18; TEMP 36.8; O2SAT 91
--- NOTE | 2024-09-27 01:37 | CT_ITS ---
PROCEDURE: ABDOMEN/PELVIS WITHOUT CONT 09/27/2024 REASON FOR EXAM: KIDNEY STONE TECHNIQUE: Abdomen and pelvis CT without intravenous contrast. Coronal and Sagittal reconstruction series were provided. One or more dose reduction techniques were used (e.g., Automated exposure control, adjustment of the mA and/or kV according to patient size, use of iterative reconstruction technique). COMPARISON: 09/12/2024. FINDINGS: Noncontrast technique limits evaluation of the abdominal and pelvic viscera. There is now [id number] mild basilar patchy ill-defined ground- glass opacities of the lower lobes which may be inflammatory, infectious or atelectasis, clinically correlate. Cylindrical bronchiectasis at the bases. Scar at the lingula again noted. Right coronary calcification again noted. Hepatic steatosis with geographic areas of more focal fat again seen within the liver. Status post cholecystectomy. The adrenal glands, pancreas and spleen appear within limits on noncontrast imaging. Motion artifact upper abdomen limits the evaluation. A couple of nonobstructing right intrarenal stones are again noted. No hydronephrosis or evidence of ureteral or bladder stone identified. 2.3 cm mildly high density focus partially exophytic at the right kidney is again seen axial 108 which may represent hemorrhagic or proteinaceous cyst with solid lesion not excluded. May follow-up with nonemergent renal ultrasound as warranted. No bowel dilation or free air. Status post appendectomy. Peterman artifact from spinal stimulator device. Aortoiliac atherosclerotic calcification. No abdominal aortic aneurysm. The bladder appears within limits. No free fluid seen. Status post hysterectomy. The ovaries appear within limits on noncontrast imaging. Peterman artifact from left femoral gamma nail. Small fat containing left inguinal hernia without stranding again noted. CT/Abdomen/Pelvis without Cont IMPRESSION: There is now [id number] mild basilar patchy ill-defined ground-gla ss opacities of the lower lobes which may be inflammatory, infectious or atelectasis, clinically correlate. A couple of nonobstructing right intrarenal stones are again noted. No hydronep hrosis or evidence of ureteral or bladder stone identified. 2.3 cm mildly high density focus partially exophytic at the right kidney is aga in seen axial 108 which may represent hemorrhagic or proteinaceous cyst with solid lesion not excluded. May follow-up with noneme rgent renal ultrasound as warranted. Hepatic steatosis with geographic areas of more focal fat again seen within the liver. Status post cholecystectomy. Reading Location: [id number]
[2024-09-27 01:40] VITALS: BP 131/69; PULSE 76; RESP 18; TEMP 36.8; O2SAT 94
--- NOTE | 2024-09-27 01:44 | EX.ED.DYSGE1 ---
HPI History of Present Illness Chief Complaint: Flank Pain Informant: patient and EMS Narrative Narrative: 63-year-old female from [facility] at [facility] presenting to the emergency room via EMS with the chief complaint of left flank pain. Patient states she has had prior kidney stones. She has a history of stroke and is on Eliquis. Also noted history of COPD schizophrenia diabetes. The patient states that the pain began yesterday morning has been waxing and waning throughout the day in the evening. She notes some associated nausea but no vomiting. She did eat dinner. She denies any dysuria frequency or hematuria [facility] Medical History Lives in shelter Hx of fracture of hip Wears glasses Wears dentures Post-menopausal Depression Alcohol use Substance abuse Open wound Uses wheelchair Arthritis High cholesterol Restless legs Back pain Smoker Asthma Shortness of breath on exertion History of edema Tobacco abuse Insulin dependent diabetes mellitus 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 GERD (gastroesophageal reflux disease) Anxiety Schizophrenia Hyperlipidemia Insomnia Neuralgia and neuritis Spondylosis Mild asthma Cerebral vascular disease Hypertension Home Medications ?Medication ?Instructions ?Recorded ?Last Taken ?Type amlodipine 5 mg tablet 5 mg PO DAILY blood pressure 03/08/19 03/08/19 History ondansetron HCl 4 mg tablet 4 mg PO Q6H PRN PRN Nausea 03/08/19 Unknown History prazosin 1 mg capsule 1 mg PO QHS nightmares 03/08/19 03/07/19 20:00 History albuterol sulfate 2.5 mg/3 mL 2.5 mg inhalation Q4H PRN SOB 07/29/21 Unknown History (0.083 %) solution for nebulization apixaban 5 mg tablet (Eliquis) 5 mg PO BID 07/29/21 02/06/24 History lurasidone 80 mg tablet (Latuda) 80 mg PO DAILY 07/29/21 Unknown History naloxegol 25 mg tablet (Movantik) 25 mg PO DAILY 07/29/21 Unknown History pantoprazole 40 mg tablet,delayed 40 mg PO DAILY 07/29/21 Unknown History release acetaminophen 325 mg tablet 650 mg PO Q6H PRN PRN fever or pain 12/18/22 Unknown History aluminum-mag hydroxide-simethicone 5 ml PO .Q3H PRN PRN indigestion 12/18/22 Unknown History 400 mg-400 mg-40 mg/5 mL oral susp (Maalox Maximum Strength) atenolol 25 mg tablet 25 mg PO DAILY 12/18/22 Unknown History atorvastatin 80 mg tablet 40 mg PO QHS cholesterol 12/18/22 Unknown History baclofen 5 mg tablet 5 mg PO TID 12/18/22 Unknown History benzonatate 100 mg capsule 100 mg PO Q8H PRN cough 12/18/22 Unknown History bisacodyl 10 mg rectal suppository 10 mg OH .Q24 PRN PRN constipation 12/18/22 Unknown History (Dulcolax (bisacodyl)) bisacodyl 5 mg tablet,delayed 5 mg PO Q8H PRN PRN constipation 12/18/22 Unknown History release (Dulcolax (bisacodyl)) cholecalciferol (vitamin D3) 125 125 mcg PO DAILY 12/18/22 Unknown History mcg (5,000 unit) capsule diclofenac sodium 1 % topical gel 2 g topical Q8H PRN PRN pain 12/18/22 Unknown History epinephrine 0.3 mg/0.3 mL 0.3 mg IM Q5-15M PRN anaphylaxis 12/18/22 Unknown History injection, auto-injector (EpiPen) flash glucose sensor (FreeStyle 12/18/22 Unknown History Cynthia 2 Sensor kit) fluticasone fur. 200 mcg-umeclid 1 inh inhalation DAILY 12/18/22 Unknown History 62.5 mcg-vilant 25 mcg inhalat.powder (Trelegy Ellipta) fluticasone propionate 50 2 spray intranasal DAILY 12/18/22 Unknown History mcg/actuation nasal spray,suspension (Flonase Allergy Relief) guaifenesin 100 mg/5 mL oral liquid 200 mg PO Q4H PRN cough 12/18/22 Unknown History hydroxyzine pamoate 25 mg capsule 25 mg PO QHS 12/18/22 Unknown History (Vistaril) insulin glargine U-300 conc 300 100 unit subcut BID 12/18/22 Unknown History unit/mL (1.5 mL) subcutaneous pen (Toujeo SoloStar U-300 Insulin) ipratropium 0.5 mg-albuterol 3 mg 3 ml inhalation BID PRN shortness 12/18/22 Unknown History (2.5 mg base)/3 mL nebulization of breath soln ipratropium 20 mcg-albuterol 100 1 puff inhalation Q6H PRN 12/18/22 Unknown History mcg/actuation mist for inhalation shortness of breath or wheezing (Combivent Respimat) ipratropium bromide 21 mcg (0.03 2 spray intranasal BID 12/18/22 Unknown History %) nasal spray lisinopril 2.5 mg tablet 2.5 mg PO DAILY 12/18/22 Unknown History loratadine 10 mg tablet (Claritin) 10 mg PO DAILY 12/18/22 Unknown History melatonin 3 mg capsule 3 mg PO HS 12/18/22 Unknown History metformin 500 mg tablet 500 mg PO BID 12/18/22 02/07/24 05:30 History montelukast 10 mg tablet 10 mg PO DAILY 12/18/22 Unknown History naloxone 0.4 mg/mL injection 0.2 mg subcut ONCE PRN opioid 12/18/22 Unknown History solution reversal olanzapine 10 mg tablet (Zyprexa) 10 mg PO QPM 12/18/22 Unknown History polyethylene glycol 3350 17 17 g PO DAILY PRN constipation 12/18/22 Unknown History gram/dose oral powder (Miralax) tizanidine 2 mg tablet 2 mg PO Q12H PRN muscle spasticity 12/18/22 Unknown History duloxetine 60 mg capsule,delayed 60 mg PO BID 01/16/23 Unknown History release (Cymbalta) potassium chloride 20 mEq 20 meq PO DAILY 01/16/23 Unknown History tablet,extended release pregabalin 100 mg capsule 100 mg PO BID 01/16/23 Unknown History furosemide 20 mg tablet 60 mg (3 x 20 mg) PO QAM #90 tabs 11/24/23 Unknown Rx Lactobacillus rhamnosus GG 10 1 cap PO BID 11/27/23 Unknown History billion cell capsule (Culturelle) buspirone 5 mg tablet 5 mg PO BID 11/27/23 Unknown History insulin lispro 100 unit/mL 1 sliding scale dose subcut TID 11/27/23 Unknown History subcutaneous pen (Humalog KwikPen (U-100) Insulin) insulin lispro 100 unit/mL 44 unit subcut LUNCH 11/27/23 Unknown History subcutaneous pen (Humalog KwikPen (U-100) Insulin) loperamide 2 mg capsule 4 mg PO BID PRN loose stool 11/27/23 Unknown History (Anti-Diarrheal (loperamide)) carboxymethylcellulose sodium 0.5 1 drp EACH EYE BID 01/30/24 Unknown History % eye drops (Refresh Tears) cyclosporine 0.05 % eye drops in a 1 drp EACH EYE Q12H 01/30/24 Unknown History dropperette (Restasis) insulin glargine U-300 conc 300 100 unit subcut BID 01/30/24 Unknown History unit/mL (3 mL) subcutaneous pen (Toujeo Max U-300 SoloStar) insulin lispro 100 unit/mL 44 unit subcut DAILY 01/30/24 Unknown History subcutaneous pen (Humalog KwikPen (U-100) Insulin) insulin lispro 100 unit/mL 48 unit subcut DINNER 01/30/24 Unknown History subcutaneous pen (Humalog KwikPen (U-100) Insulin) oxycodone-acetaminophen 5 mg-325 1 tab PO Q12H PRN PRN pain 01/30/24 Unknown History mg tablet semaglutide 0.25 mg or 0.5 mg (2 0.5 mg subcut FR 01/30/24 Unknown History mg/1.5 mL) subcutaneous pen injector (Ozempic) semaglutide 0.25 mg or 0.5 mg (2 0.25 mg subcut .Saturday01/30/24 Unknown History mg/3 mL) subcutaneous pen injector (Ozempic) oxycodone-acetaminophen 5 mg-325 1 tab PO Q6H PRN Flank Pain 3 days 09/27/24 Unknown Rx mg tablet (Percocet) #10 tabs Allergy/AdvReac Type Severity Reaction Status Date / Time apricot Allergy Unknown PT UNSURE Verified 09/12/24 22:12 OF REACTION BCG (Bacillus Allergy Unknown Other Verified 04/08/24 00:53 Calmette-Zohra) vacc bee venom protein (honey Allergy Unknown Other Verified 09/12/24 22:12 bee) (bee sting) corn Allergy Unknown Other Verified 09/12/24 22:12 Milk Containing Products Allergy Unknown Other Verified 09/12/24 22:12 (Dairy) peas Allergy Unknown Other Verified 09/12/24 22:12 tomato Allergy Unknown Other Verified 09/12/24 22:12 Iodinated Contrast Media Allergy Hives Verified 09/12/24 22:12 (Iodinated Contrast Media - IV Dye) amoxicillin trihydrate (From AdvReac Itching Verified 09/12/24 22:12 Augmentin) hydrocodone (From Vicodin) AdvReac Unknown Verified 09/12/24 22:12 potassium clavulanate (From AdvReac Itching Verified 09/12/24 22:12 Augmentin) prednisone AdvReac Unknown Verified 09/12/24 22:12 shellfish derived AdvReac Itching Verified 09/12/24 22:12 Surgical History History of History of tubal ligation History of hysterectomy History of cholecystectomy History of appendectomy S/P right rotator cuff repair Social History Smoking Status: Current every day smoker tobacco type: cigarettes ROS ROS ED Constitutional Constitutional ED: Denies chills, fever(s) or weight loss Eyes Eyes: Denies change in vision or diplopia ENT ENT ED: Denies ear pain, rhinorrhea or sore throat Cardiovascular Cardiovascular: Denies chest pain, orthopnea, palpitations or racing heartbeat Respiratory/Chest Respiratory/Chest: Denies cough, dyspnea or orthopnea Gastrointestinal Gastrointestinal: Reports abdominal pain and nausea; Denies diarrhea or vomiting Genitourinary Genitourinary ED: Denies dysuria, hematuria or urinary frequency Musculoskeletal Musculoskeletal: Reports back pain; Denies arthralgias or myalgias Integumentary Denies abscess or rash Neurologic Neurologic: Denies headache(s) or weakness Psychiatric Psychiatric: Denies anxiety, depression, suicidal ideation or suicidal thoughts Endocrine Endocrinology: Denies polydipsia, polyphagia or polyuria Allergic/Immunologic Allergic/Immunologic ED: Denies mouth swelling, tongue swelling or urticaria EXAM Physical Exam Const Vital Signs: 09/27/24 01:36 09/27/24 01:40 09/27/24 04:00 Temperature 98.2 F 98.2 F 98 F Temperature Source Oral Oral Temporal Pulse Rate 72 76 67 Respiratory Rate 18 18 16 Blood Pressure 131/69 H 131/69 H 160/82 H Blood Pressure Mean 89 89 108 Pulse Ox 91 94 95 Oxygen Delivery Method Room Air Room Air Room Air Positive well nourished, well developed and obese General Appearance ED: well developed and NAD Nutritional Appearance: obese HEENT Reports normocephalic, head/scalp atraumatic and moist mucous membranes Eyes PERRL and EOMs intact bilaterally Neck no lymphadenopathy, supple and no JVD Resp normal respiratory effort and clear to auscultation bilaterally Cardio regular rate, regular rhythm and no murmurs GI normal to inspection, nondistended, normoactive bowel sounds and non-tender Palpation: soft Back/Spine no CVA tenderness and normal ROM Extremity normal to inspection General Extremety ED: Negative for edema General Extremity: Negative for edema Neuro oriented x3 and CN's II-XII intact bilaterally Sensorium / Orientation: alert Motor Exam: strength 5/5 throughout Psych mental status grossly normal Mood & Affect: Negative for depressed or tearful Skin no rashes or lesions noted and no wounds MDM MDM MDM Narrative Medical decision making narrative: Differential diagnosis includes but not limited to UTI pyelonephritis ureterolithiasis diverticulitis colitis muscular strain constipation volvulus Patient's white count is 10.5 hemoglobin 14.2 platelet count is 214. Creatinine 1.37 glucose of 254. Urinalysis no overt infection no significant hematuria white cells 0-[address] without contrast was obtained and read by radiology and reviewed by myself. This does not show any acute evidence of ureterolithiasis. I do not feel strongly that this is renal infarct as she is anticoagulated the creatinine is 1.37 which is near baseline and she seems reasonably comfortable in the bed. We can increase her oxycodone that she gets every 12 hours according to the chart. Would recommend PCP follow-up 1 to 2 days if not improving return if worsening History & Record Review Discussion w/independent historian: EMS personnel, Patient and Other (SNF Paperwork) Lab Data Attestation: I reviewed the patient's lab results. Labs: Laboratory Results - last 24 hr 09/27/24 09/27/24 01:47 02:40 WBC 10.5 RBC 4.84 Hgb 14.2 Hct 43.9 MCV 90.7 MCH 29.3 MCHC 32.3 RDW Std Deviation 44.8 H RDW Coeff of Gael 13.6 Plt Count 214 MPV 10.1 Immature Gran % (Auto) 0.500 Neut % (Auto) 64.6 Lymph % (Auto) 25.9 [place] % (Auto) 7.7 Eos % (Auto) 0.8 Baso % (Auto) 0.5 Absolute Neuts (auto) 6.8 Absolute Lymphs (auto) 2.73 Nucleated RBC % 0 Sodium 136 Potassium 4.0 Chloride 99 Carbon Dioxide 27.1 Anion Gap 10 BUN 17 Creatinine 1.37 H Est GFR (MDRD) Non-Af 44 L BUN/Creatinine Ratio 12.7 Glucose 254 H Calcium 9.5 Urine Color Yellow Urine Clarity Clear Urine pH 6.5 Ur Specific [place] 1.010 Urine Protein Negative Urine Glucose (UA) Normal Urine Ketones Negative Urine Occult Blood 25 H Urine Nitrite Negative Urine Bilirubin Negative Urine Urobilinogen Normal Ur Leukocyte Esterase 25 H Urine RBC 0-5 SEEN Urine WBC 0-5 SEEN Ur Squamous Epith Cells 0-5 SEEN Urine Bacteria 3+ Urine Mucus 0 SEEN Radiography Diagnostic Testing: Clinical Impression(s) from Imaging Studies Abdomen/Pelvis CT 09/27/24 01:37 IMPRESSION: There is now [id number]-right mild basilar patchy ill-defined ground-glass opacities of the lower lobes which may be inflammatory, infectious or atelectasis, clinically correlate. A couple of nonobstructing right intrarenal stones are again noted. No hydronephrosis or evidence of ureteral or bladder stone identified. 2.3 cm mildly high density focus partially exophytic at the right kidney is again seen axial 108 which may represent hemorrhagic or proteinaceous cyst with solid lesion not excluded. May follow-up with nonemergent renal ultrasound as warranted. Hepatic steatosis with geographic areas of more focal fat again seen within the liver. Status post cholecystectomy. Reading Location: [facility] Discharge Plan Triage Chief Complaint: Flank Pain ED Provider: Gregorio Cochran Dx/Rx/DC Orders Clinical Impression: Acute flank pain, Anticoagulated Instructions: ED Flank Pain, Uncertain Cause Prescriptions: New oxycodone-acetaminophen [Percocet] 5-325 mg tablet 1 tab PO Q6H PRN (Reason: Flank Pain) 3 Days Qty: 10 0RF No Action acetaminophen 325 mg tablet 650 mg PO Q6H PRN PRN (Reason: fever or pain) atenolol 25 mg tablet 25 mg PO DAILY baclofen 5 mg tablet 5 mg PO TID benzonatate 100 mg capsule 100 mg PO Q8H PRN (Reason: cough) loratadine [Claritin] 10 mg tablet 10 mg PO DAILY Combivent Respimat 20-100 mcg/actuation mist 1 puff inhalation Q6H PRN (Reason: shortness of breath or wheezing) diclofenac sodium 1 % gel 2 g topical Q8H PRN PRN (Reason: pain) Rx Instructions: apply to single elbow, wrist or hand; for hand includes palm/fingers/back of hand bisacodyl [Dulcolax (bisacodyl)] 5 mg tablet,delayed release (DR/EC) 5 mg PO Q8H PRN PRN (Reason: constipation) bisacodyl [Dulcolax (bisacodyl)] 10 mg suppository 10 mg OH .Q24 PRN PRN (Reason: constipation) epinephrine [EpiPen] 0.3 mg/0.3 mL auto-injector 0.3 mg IM Q5-15M PRN (Reason: anaphylaxis) Rx Instructions: do not exceed 3 doses per episode fluticasone propionate [Flonase Allergy Relief] 50 mcg/actuation spray,suspension 2 spray intranasal DAILY Rx Instructions: administer into each nostril (DME) FreeStyle Cynthia 2 Sensor Kit See Rx Instructions .Route Rx Instructions: As directed guaifenesin 100 mg/5 mL liquid 200 mg PO Q4H PRN (Reason: cough) ipratropium bromide 21 mcg (0.03 %) spray,non-aerosol 2 spray intranasal BID Rx Instructions: administer into each nostril ipratropium-albuterol 0.5 mg-3 mg(2.5 mg base)/3 mL solution for nebulization 3 ml inhalation BID PRN (Reason: shortness of breath) lisinopril 2.5 mg tablet 2.5 mg PO DAILY alum-mag hydroxide-simeth [Maalox Maximum Strength] 400-400-40 mg/5 mL suspension 5 ml PO .Q3H PRN PRN (Reason: indigestion) melatonin 3 mg capsule 3 mg PO HS metformin 500 mg tablet 500 mg PO BID polyethylene glycol 3350 [Miralax] 17 gram/dose powder 17 g PO DAILY PRN (Reason: constipation) montelukast 10 mg tablet 10 mg PO DAILY naloxone 0.4 mg/mL solution 0.2 mg subcut ONCE PRN (Reason: opioid reversal) tizanidine 2 mg tablet 2 mg PO Q12H PRN (Reason: muscle spasticity) insulin glargine U-300 conc [Nasir SoloStar U-300 Insulin] 300 unit/mL (1.5 mL) insulin pen 100 unit subcut BID Trelegy Ellipta 200-62.5-25 mcg blister with device 1 inh inhalation DAILY hydroxyzine pamoate [Vistaril] 25 mg capsule 25 mg PO QHS cholecalciferol (vitamin D3) 125 mcg (5,000 unit) capsule 125 mcg PO DAILY olanzapine [Zyprexa] 10 mg tablet 10 mg PO QPM duloxetine [Cymbalta] 60 mg capsule,delayed release(DR/EC) 60 mg PO BID potassium chloride 20 mEq tablet extended release 20 meq PO DAILY pregabalin 100 mg capsule 100 mg PO BID atorvastatin 80 mg tablet 40 mg PO QHS prazosin 1 MG capsule 1 mg PO QHS amlodipine 5 MG tablet 5 mg PO DAILY ondansetron HCl 4 MG tablet 4 mg PO Q6H PRN PRN (Reason: Nausea) albuterol sulfate 2.5 mg /3 mL (0.083 %) Solution For Nebulization 2.5 mg INHALATION Q4H PRN (Reason: SOB) pantoprazole 40 mg Tablet,Delayed Release (Dr/Ec) 40 mg PO DAILY lurasidone [Latuda] 80 mg Tablet 80 mg PO DAILY Eliquis 5 mg Tablet 5 mg PO BID Movantik 25 mg Tablet 25 mg PO DAILY insulin lispro [Humalog KwikPen Insulin] 100 unit/mL insulin pen 44 unit subcut DAILY insulin lispro [Humalog KwikPen Insulin] 100 unit/mL insulin pen 48 unit subcut DINNER oxycodone-acetaminophen 5-325 mg tablet 1 tab PO Q12H PRN PRN (Reason: pain) Ozempic 0.25 mg or 0.5 mg (2 mg/3 mL) pen injector 0.25 mg subcut .SATURDAY Rx Instructions: LAST DOSE 02/21/24 Ozempic 0.25 mg or 0.5 mg(2 mg/1.5 mL) pen injector 0.5 mg subcut FR Rx Instructions: for 4 weeks cyclosporine [Restasis] 0.05 % dropperette 1 drp EACH EYE Q12H carboxymethylcellulose sodium [Refresh Tears] 0.5 % drops 1 drp EACH EYE BID insulin glargine U-300 conc [Toujeo Max U-300 SoloStar] 300 unit/mL (3 mL) insulin pen 100 unit subcut BID buspirone 5 mg tablet 5 mg PO BID Culturelle 10 billion cell capsule 1 cap PO BID insulin lispro [Humalog KwikPen Insulin] 100 unit/mL insulin pen 1 sliding scale dose subcut TID Rx Instructions: PRIOR TO MEALS insulin lispro [Humalog KwikPen Insulin] 100 unit/mL insulin pen 44 unit subcut LUNCH loperamide [Anti-Diarrheal (loperamide)] 2 mg capsule 4 mg PO BID PRN (Reason: loose stool) furosemide 20 mg tablet 60 mg PO QAM Qty: 90 0RF Primary Care Provider: Mariah Atkinson Referrals: Mariah Atkinson MD [Primary Care Provider] - 1-2 Days if not improving Print Language: Estonian Disposition Disposition: Home, Self Care
[2024-09-27 01:54] LABS: Absolute Lymphocyte Count 2.73 X10^3/uL (0.83-4.51); Absolute Neutrophil Count 6.8 X10^3/uL (2.0-7.7); Basophil# 0.05 X10^3/uL; Basophil% 0.5 % (0-1); Eosinophil# 0.08 X10^3/uL; Eosinophils% 0.8 % (0-5); Hematocrit 43.9 % (37-47); Hemoglobin 14.2 g/dL (12.0-15.0); Lymphocyte # 2.73 X10^3/ul (0.83-4.51); Lymphocyte % 25.9 % (19-41); Mean Corp Hgb Conc 32.3 g/dL (32-36); Mean Corpuscular Hgb 29.3 pg (27.0-32.0); Mean Corpuscular Volume 90.7 fL (81-99); Mean Platelet Vol. 10.1 fl (6.2-12.0); Monocyte# 0.81 X10^3/uL; Monocyte% 7.7 % (0-10); NRBC Flagged by Analyzer 0 % (0-5); Neutrophil # 6.82 X10^3/uL (2.7-7.7); Neutrophil % 64.6 % (47-70); Platelet Count 214 K/mm3 (150-450); RBC Distribution Width CV 13.6 % (11.6-14.6); RBC Distribution Width SD 44.8 fl (35.1-43.9); Red Blood Count 4.84 M/mm3 (4.2-5.4); White Blood Count 10.5 K/mm3 (4.4-11.0)
[2024-09-27 02:16] LABS: Anion Gap 10 (5-15); BUN 17 mg/dL (4-19); BUN/Creat Ratio 12.7 RATIO (10-20); Calcium,Total 9.5 mg/dL (7.6-11.0); Carbon Dioxide 27.1 mmol/L (21.0-32.0); Chloride 99 mmol/L (98-108); Creatinine, Serum 1.37 mg/dL (0.70-1.20); EST Glomerular Filtration Rate 44 (>60); Glucose 254 mg/dL (70-99); Sodium Level 136 mmol/L (133-145)
[2024-09-27 02:47] LABS: Mucous, Urine 0 SEEN /hpf (<or=2+)
[2024-09-27 02:48] LABS: Color, Urine Yellow (Yellow); Glucose, Dipstick Normal (Normal); Ketone-Dipstick Negative (Negative); Leukocyte Esterase-Dipstick 25 /ul (Negative); Nitrite-Dipstick Negative (Negative); Occult Blood-Urine 25 /ul (Negative); Protein-Dipstick Negative (Negative); Urine Bilirubin Dipstick Negative (Negative); Urine Clarity Clear (Clear); Urine Urobilinogen Normal (Normal); Urine pH 6.5 (5.0 - 8.0)
[2024-09-27 02:54] LABS: White Blood Cells 0-5 SEEN /hpf (0-5)
[2024-09-27 02:55] LABS: Bacteria 3+ /hpf (None Seen); Red Blood Cells-Urine 0-5 SEEN /hpf (0-5); Squamous Epithelial Cells - UA 0-5 SEEN /hpf (5-10)
[2024-09-27 04:00] VITALS: BP 160/82; PULSE 67; RESP 16; TEMP 36.6; O2SAT 95
[2024-09-27 04:39] VITALS: BP 160/82; PULSE 72; RESP 18; TEMP 36.6; O2SAT 93
== END 2024-09-27 05:29 | disposition skilled nursing facility (03) ==
PROVIDERS: Emergency Provider Emergency Medicine; PCP Hospitalist; Visit Provider Emergency Medicine
DX: R10.9 Unspecified abdominal pain (principal); F20.9 Schizophrenia, unspecified; J44.9 Chronic obstructive pulmonary disease, unspecified; Z79.4 Long term (current) use of insulin; E11.40 Type 2 diabetes mellitus with diabetic neuropathy, unspecified; E78.00 Pure hypercholesterolemia, unspecified; I10 Essential (primary) hypertension; R11.0 Nausea; Z87.442 Personal history of urinary calculi; Z79.01 Long term (current) use of anticoagulants; Z86.73 Personal history of transient ischemic attack (TIA), and cerebral infarction without residual deficits; Z98.51 Tubal ligation status; Z90.49 Acquired absence of other specified parts of digestive tract; Z90.710 Acquired absence of both cervix and uterus; F17.210 Nicotine dependence, cigarettes, uncomplicated; M54.9 Dorsalgia, unspecified; E66.9 Obesity, unspecified
CPT/HCPCS: 74176; 80048; 81001; 85025; 99284; A4216

== ENCOUNTER 2025-01-21 07:19 | Day surgery (SDC) | payer MEDICARE, MEDICAID, SELFPAY ==
[2025-01-21] VITALS (9 sets, daily range): BP systolic 126–139; BP diastolic 54–75; PULSE 77–92; RESP 16–18; TEMP 36.2–36.3; O2SAT 97–98; BMI 34.9
--- OUTSIDE RECORDS SUMMARY | 2025-01-21 07:25 | XMS RPT_ITS | CCD ---
Author Organization [facility] Care Team Providers Care Building Associate Name Role Phone Sandra Loomis Unavailable Sandra Loomis Unavailable Karthikeyan Hall Unavailable Sandra Loomis Unavailable Sandra Loomis Unavailable Sandra Loomis Unavailable JEREMY MACHADO Unavailable Unavai Karthikeyan Duff Unavailable Lana Arrieta MD Primary Care Provider LANA ARRIETA MD Primary Care Physician Lauren Ruelas Unavailable Lana Arrieta MD Primary Care Provider [phone] Lauren Ruelas Unavailable Lana Arrieta MD Primary Care Provider Lauren Ruelas Unavailable Dr. Chilango Laughlin Attending Provider [phone] Dr. Chilango Laughlin Other Provider [phone] Dr. Bianca Palomares Primary Care Provider Unavaila ble Dr. Bianca Palomares Referring Provider Unavailable ARMINDA Álvarez Attending Provider [phone] Dr. Kurt Justice Attending Provider [phone] ARMINDA Pardo Attending Provider Dr. Festus Luque Attending Provider [phone] Dr. Bianca Palomares Primary Care Provider Unavaila ble Marielle, Dr. Valenzuela Referring Provider Unavailable Dr. Chilango Laughlin Attending Provider [phone] Dr. Chilango Laughlin Other Provider [phone] ARMINDA Álvarez Attending Provider [phone] Dr. Kurt Justice Attending Provider 1([facility]) Dr. Chilango Laughlin Attending Provider [phone] Dr. Chilango Laughlin Other Provider [phone] Marielle, Dr. Valenzuela Primary Care Provider Unavaila ble Marielle, Dr. Valenzuela Referring Provider Unavailable ARMINDA Álvarez Attending Provider 1([facility])[phone] Dr. Kurt Justice Attending Provider 1([facility]) Dr. Chilango Laughlin Attending Provider [phone] Dr. Chilango Laughlin Other Provider [phone] Dr. Bianca Palomares Primary Care Provider Unavaila ble Marielle, Dr. Valenzuela Referring Provider Unavailable ARMINDA Álvarez Attending Provider 1([facility])[phone] Dr. Chilango Laughlin Attending Provider [phone] Dr. Chilango Laughlin Other Provider [phone] Marielle, Dr. Valenzuela Primary Care Provider Unavaila ble Marielle, Dr. Valenzuela Referring Provider Unavailable Dr. Chilango Laughlin Attending Provider [phone] Dr. Chilango Laughlin Other Provider [phone] Dr. Bianca Palomares Primary Care Provider Unavaila ble Marielle, Dr. Valenzuela Referring Provider Unavailable Berny SOARES, Lana Vargas Primary Care Provider [phone] Jessenia SOARES, Lauren Swift Unavailable MARIELLE SOARES, DR BIANCA Stevenson Primary Care Physician MAULIK العلي Attending Kang PALOMARES MD, DR BIANCA Stevenson Primary Care Unavailzac HYATT MD, DR MENSAH Attending LANA Wright MD Primary Care Unavailable MAULIK العلي Attending Kang PALOMARES MD, DR BIANCA Stevenson Primary Care Unavailzac Laughlin, Dr. Kee Attending Provider [phone] Dr. Chilango Laughlin Other Provider Marielle, Dr. Valenzuela Primary Care Provider Unavailjose antonio Palomares, Dr. Valenzuela Referring Provider Unavailable Dr. Chilango Laughlin Attending Provider [phone] Qian, Dr. Kee Other Provider [phone] Marielle, Dr. Valenzuela Primary Care Provider Unavailjose antonio Palomares, Dr. Valenzuela Referring Provider Unavailable Dr. Chilango Laughlin Attending Provider [phone] Qian, Dr. Kee Other Provider [phone] Marielle, Dr. Valenzuela Primary Care Provider Unavailjose antonio Palomares, Dr. Valenzuela Referring Provider Unavailable Berny SOARES, Lana Vragas Primary Care Provider TOSHIA, FUNMILAYO Referring Unavailable LANA ARRIETA Primary Care Unavailable LANA ARRIETA Primary Care Unavailable POPE, FUNMILAYO Referring Unavailable LANA ARRIETA Primary Care Unavailable TOSHIA, FUNMILAYO Referring Unavailable MARIAH GUEVARA MD Primary Care Physician Becky SOARES, Dr. Sun Attending Provider Dr. Dino Pena MD Emergency Provider Demetrio SOARES, Dr. Mariah Daniels Primary Care Provid er Dr. Gregorio Cochran DO Emergency Provider MAULIK العلي DO Attending Jigna troy GUEVARA MD, MARIAH FRANCES Primary Care Unavail able REFERRING, PHY WO ID Attending Unavailable MARIELLE SOARES, DR BIANCA Stevenson Primary Care UnavailKarthikeyan Renee Attending Unavailable Gudla, Bianca Primary Care Unavailable Gudla, Bianca Referring Unavailable Gudla, Bianca Primary Care Unavailable Gudla, Bianca Referring Unavailable Karthikeyan Grove Attending Unavailable Dino Pena Attending Unavailable Morehart, Mariah Frances Primary Care Unavailabl e Lauren Ruelas Attending Unavailable Basalelan Ayman Referring Unavailable Gudla, Bianca Primary Care Unavailable Rancho Orozco Attending Unavailable Gudla, Bianca Primary Care Unavailable Fer Simmons Attending Unavailable Morehart, Mariah Frances Primary Care Unavailabl e Gudla, Bianca Referring Unavailable Gudla, Bianca Primary Care Unavailable Karthikeyan Grove Attending Unavailable Beata Liao Attending Unavailable Gudla, Bianca Primary Care Unavailable Gudla, Bianca Referring Unavailable Gianna Nelson Attending Unavailable Morehart, Mariah Frances Primary Care Unavailabl e Morehart, Mariah Frances Referring Unavailabl e Gregorio Cochran Attending Unavailable Morehart, Mariah Frances Primary Care Unavailabl e Oswaldo Lo Attending Unavailable Gudla, Bianca Primary Care Unavailable Allergies Allergy Classification Reported Allergen(s) Allergy Type Date of Onset Reaction(s) Facility (20 sources) apricot extract; Translations: [APRICOT] Drug Allergy 5 PT UNSURE OF REACTION [facility] Repository (20 sources) lactose; Translations: [LACTOSE] Drug Allergy 0 [facility] Repository (20 sources) levoFLOXacin; Translations: [LEVOFLOXACIN] Drug Allergy 5 Intolerance [facility] Repository (20 sources) morphine; Translations: [MORPHINE] Drug Allergy 4 Itching [facility] Repository (20 sources) NSAIDs; Translations: [NSAIDS (NON-STEROIDAL ANTI-INFLAMMATO RY DRUG)] Propensity to adverse reactions to drug (disorder) 7 GI Upset [facility] Repository (20 sources) oxyCODONE; Translations: [OXYCODONE] Drug Allergy 8 Intolerance [facility] Repository (20 sources) Phenothiazine; Translations: [PHENOTHIAZINES ] Propensity to adverse reactions to drug (disorder) 4 [facility] Repository (20 sources) predniSONE; Translations: [PREDNISONE] Drug Allergy 5 Unknown [facility] Repository (20 sources) promethazine; Translations: [PROMETHAZINE HCL] Drug Allergy 7 Itching [facility] Repository (20 sources) Quinolones (Antibiotic); Translations: [QUINOLONES] Propensity to adverse reactions to drug (disorder) 4 [facility] Repository (20 sources) magda leaf allergenic extract; Translations: [MAGDA] Drug Allergy 5 [facility] Repository (20 sources) sulindac; Translations: [SULINDAC] Drug Allergy 5 Mental Status Change [facility] Repository (20 sources) traMADol; Translations: [TRAMADOL] Drug Allergy 5 Itching [facility] Repository (3 sources) OTHER; Translations: [OTHER] Propensity to adverse reactions (disorder) 5 AOF [facility] Repository (20 sources) OPIOIDS - MORPHINE ANALOGUES; Translations: [OPIOIDS - MORPHINE ANALOGUES] Propensity to adverse reactions to drug (disorder) 4 [facility] Repository (20 sources) CLEANING SUPPLIES [Other] Propensity to adverse reactions 5 [facility] Work Phone: (20 sources) IVP CONTRAST [Other] Propensity to adverse reactions 5 Intolerance [facility] Work Phone: (7 sources) Bee/Wasp/Ant venom Allergy to substance Anaphylaxis (disorder) [facility] (9 sources) corn extract; Translations: [corn] Drug Allergy 5 Eruption of skin (disorder) [facility] (7 sources) HYDROmorphone; Translations: [hydromorphone] Drug Allergy [facility] (7 sources) Promethazine; Translations: [promethazine] Drug Allergy [facility] (7 sources) Purified Protein Derivative of Tuberculin; Translations: [tuberculin purified protein derivative] Drug Allergy Lactose intolerance [facility] (7 sources) Milk Products Food allergy Eruption of skin (disorder) [facility] (7 sources) Tomatoes Food allergy [facility] (7 sources) Apricots Food allergy Eruption of skin (disorder) [facility] (9 sources) Peas; Translations: [peas] Food allergy 5 Eruption of skin (disorder) [facility] (15 sources) Amoxicillin; Translations: [amoxicillin trihydrate] Drug Allergy 9 [facility] (14 sources) HYDROcodone Drug Allergy 9 Unknown [facility] (15 sources) Shellfish; Translations: [shellfish derived] Propensity to adverse reactions 9 [facility] (15 sources) Iodinated Contrast Media; Translations: [Iodinated Contrast Media] [facility]ergy [facility] substance [facility] (15 sources) potassium clavulanate; Translations: [potassium clavulanate] Propensity to adverse reactions 9 [facility] (1 source) tomato allergenic extract Drug Allergy 5 [facility] (2 sources) BCG (Bacillus Calmette-Zohra ) vacc; Translations: [BCG (Bacillus Calmette-Zohra ) vacc] Allergy to substance 4 Other [facility] (1 source) bee venom protein (honey bee) Allergy to substance 5 [facility] (1 source) Milk Containing Products (Dairy) Allergy to substance 5 [facility] (1 source) HYDROcodone Drug Allergy 5 [facility] Repository (1 source) tomato allergenic extract Drug Allergy 5 [facility] Repository (1 source) Milk Containing Products (Dairy) Drug allergy (disorder) 5 [facility] Repository (1 source) bee venom protein (honey bee) Drug allergy (disorder) [facility] Repository Medications Current Medications Medication Drug Class(es) Dates Sig (Normalized) Sig (Original) 0.4 ML cyclosporine 0.5 MG/ML Ophthalmic Suspension [Restasis] (7 sources) Start: 11-22-2020 Restasis 0.05% ophthalmic emulsion Dose = 1 drop(s), Eyes, both, BID, # 30 EA, 0 Refill(s) Start Date: 11/22/20 Status: Ordered Quantity: 30.0 Unit: EA Repeat number: 1 Start: 11-22-2020 take 1 dose into the eye(s) twice daily Restasis 0.05% ophthalmic emulsion Dose = 1 drop(s), Eyes, both, BID, # 30 EA, 0 Refill(s) Start Date: 11/22/20 Status: Ordered acetaminophen 325 mg oral tablet (20 sources) Start: 12-18-2022 take 2 tablets by mouth every six hours as needed for pain Acetaminophen 325 mg tablet Active 650 mg PO EVERY 6 HOURS NEEDED as needed for fever or pain December 18, 2022 12:00am Start: 12-18-2022 take 325 mg by mouth once Acet aminophen Active 325 MG PO ONCE December 18, 2022 12:00am Start: 11-22-2020 acetaminophen 325 mg oral tablet Dose : 650 mg = 2 tab(s), Oral, TID, PRN as needed for pain, 0 Refill(s) Start Date: 11/22/20 Status: Ordered Repeat number: 1 Start: 02-01-2017 take 1 tablet by jessica th every eight hours as needed acetaminophen (TYLENOL) 500 mg tablet Take 1 tablet by mouth every 8 hours as needed. 0 02/01/2017 Active Comment on above: Take 1 tablet by jessica th every 8 hours as needed. acetaminophen 325 mg / oxyCODONE hydrochloride 5 mg oral tablet (20 sources) Opioid Agonist Start: 09-27-2024 take 1 tablet by mouth every six hours as needed for pain Oxycodone-Acetam inophen (Percocet) 5-325 mg tablet Active 1 {tbl} PO EVERY 6 HOURS as needed for Flank Pain 10 September 27, 2024 Start: 01-30-2024 Oxycodone-Acet aminophen 5-325 mg tablet Active 1 {tbl} PO EVERY 12 HOURS NEEDED as needed for pain January 30, 2024 12:00am Start: 03-08-2019 End: 12-18-2022 Oxycodone-Acetaminophen 1 EA CH tablet Discontinued 1 {tbl} PO 4 TIMES DAILY 08 02March 11, 2019 December 18, 2022 1:44pm Start: 03-08-2019 End: 12-18-2022 take 1 tablet by mouth four times daily Oxycodone-Acetaminophen Discontinued 1 TABLET PO 4 TIMES DAILY 08 02March 11, 2019 December 18, 2022 1:44pm Start: 01-23-2018 End: 01-27-2018 take 1 tablet by mouth every six hours as needed for pain Oxycodone-Acetaminophen 1 EACH tablet Discontinued 7.5 mg PO EVERY 6 HOURS NEEDED as needed for pain January 23, 2018 12:00am January 27, 2018 12:12pm Start: 11-27-2016 End: 06-28-2017 Oxycodone-Acetaminophen 1 TA BLET tablet Discontinued 1 - 2 {tbl} PO EVERY 4 HOURS NEEDED as needed for Pain 60 November 27, 2016 12:00am June 28, 2017 1:56pm Start: 11-27-2016 End: 06-28-2017 take 1 tablet by mouth every four hours as needed Oxycodone-Acetaminophen Discontinued 1 - 2 TABLET PO EVERY 4 HOURS NEEDED 60 November 27, 2016 12:00am June 28, 2017 1:56pm Start: 03-23-2016 PERCOCET 5-325 MG TABS OXYCODONE-ACETAMINOPHEN [id number] Karthikeyan Hall Start: 03-23-2016 PERCOCET 5-325 MG TABS OXYCODONE-ACETAMINOPHEN [id number] Karthikeyan Hall albuterol 0.83 mg/ml inhalation solution (20 sources) beta2-Adrenergic Agonist Start: 07-29-2021 take 2.5 mg by inhalation every four hours as needed Albuterol Sulfate 2.5 mg /3 mL (0.083 %) Solution For Nebulization Active 2.5 mg INHALATION Q4H as needed for SOB July 29, 2021 1:00am Start: 02-14-2021 take 1 dose by inhal ation every four hours as needed albuterol 2.5 mg/3 mL (0.083%) inhalation solution Dose : 2.5 mg = 3 mL, Inhalation, q4h, PRN for wheezing, # 60 EA, 0 Refill(s) Start Date: 02/14/21 Status: Ordered Quantity: 60.0 Unit: EA Repeat number: 1 Start: 07-23-2013 take 2 puff(s) by in halation every six hours albuterol 90 mcg/actuation aero Indications: Unspecified asthma(493.90) Inhale 2 Puffs as instructed every 6 hours. 1 Inhaler 0 07/23/2013 Active Start: 05-13-2012 albuterol 2.5 mg /3 mL (0.083 %) nebulizer solution Indications: Unspecified asthma(493.90) Use 3 mL via nebulizer every 4 hours as needed for Wheezing/Shortness of Breath. 75 Vial 5 05/13/2012 Active Comment on above: Use 3 mL via nebuliz er every 4 hours as needed for Wheezing/Shortness of Breath. Inhale 2 Puffs as in structed every 6 hours. 120 actuat albuterol 0.1 mg/actuat / ipratropium bromide 0.02 mg/actuat inhalation spray (20 sources) Anticholinergic, beta2-Adrenergic Agonist Start: take 20-100 ug by inhalation every six hours as needed Ipratropium-Albut rita (Combivent Respimat) 20-100 mcg/actuation mist Active 1 NMA INHALATION EVERY 6 HOURS as needed for shortness of breath or wheezing December 18, 2022 12:00am Start: 12-18-2022 take 1 mL by inhalat ion twice daily as needed Ipratropium-Albuterol 0.5 mg-3 mg(2.5 mg base)/3 mL solution for nebulization Active 3 mL INHALATION TWICE A DAY as needed for shortness of breath December 18, 2022 12:00am Start: 12-18-2022 take 20-100 ug by in halation every six hours Ipratropium-Albuterol (Combivent Respimat) 20-100 mcg/actuation mist Active 1 PUFF INHALATION EVERY 6 HOURS December 18, 2022 12:00am Start: 12-18-2022 Ipratropium-Al buterol Active 3 ML INHALATION 6 times per day December 18, 2022 12:00am Start: 08-30-2014 take 20-100 ug by in halation four times daily as needed ipratropium-albuterol (COMBIVENT RESPIMAT) 20-100 mcg/actuation mist Inhale 1 Inhalation as instructed four times daily as needed. 1 Inhalation 11 08/30/2014 Active Comment on above: Inhale 1 Inhalation as instructed four times daily as needed. Inhale 3 mL as instr ucted as directed. BID, prn for SOB Alum-Mag Hydroxide-Simeth (Maalox Maximum Strength) 400-400-40 mg/5 mL suspension (1 source) Start: 3 take 1 mL by mouth every three hours as needed Alum-Mag Hydroxide-Simeth (Maalox Maximum Strength) 400-400-40 mg/5 mL suspension Active 5 mL PO .Q3H PRN as needed for indigestion December 18, 2022 12:00am aluminum hydroxide 80 mg/ml / magnesium hydroxide 80 mg/ml / simethicone 8 mg/ml oral suspension (20 sources) Start: 3 take 1 mL by mouth every three hours Alum-Mag Hydroxide-Simeth (Maalox Maximum Strength) 400-400-40 mg/5 mL suspension Active 5 ML PO Q3H December 18, 2022 12:00am Start: 11-22-2020 take 1 dose by mouth four times daily as needed Maalox Dose = 10 mL, Oral, QID, PRN for indigestion, # 200 mL, 0 Refill(s) Start Date: 11/22/20 Status: Ordered Quantity: 200.0 Unit: mL Repeat number: 1 Start: 11-22-2020 take 1 dose by mouth four times daily as needed Maalox Dose = 10 mL, Oral, QID, PRN for indigestion, # 200 mL, 0 Refill(s) Start Date: 11/22/20 Status: Ordered aluminum & magne sium hydroxide-simethicone (MAALOX MAXIMUM STRENGTH) 400-400-40 mg/5 mL suspension Take 10 mL by mouth as directed. Active Comment on above: Take 10 mL by mouth as directed. amLODIPine 5 mg oral tablet (20 sources) Dihydropyridine Calcium Channel Alem Start: 9 Norvasc 5 mg oral tablet Dose : 5 mg = 1 tab(s), Oral, qDay, # 30 tab(s), 0 Refill(s) Start Date: 11/22/20 Status: Ordered Quantity: 30.0 Unit: tab(s) Repeat number: 1 Comment on above: Take 5 mg by mouth e very morning. apixaban 5 mg oral tablet (20 sources) Factor Xa Inhibitor Start: 2 take 1 tablet by mouth twice daily Apixaban (Eliquis) 5 mg Tablet Active 5 mg PO TWICE A DAY July 29, 2021 1:00am Start: 11-22-2020 Eliquis 2.5 mg oral tablet Dose : 2.5 mg = 1 tab(s), Oral, BID, # 60 tab(s), 0 Refill(s), 81.8 Start Date: 11/22/20 Status: Ordered Quantity: 60.0 Unit: tab(s) Repeat number: 1 Comment on above: Take by mouth twice daily. ARIPiprazole 30 mg oral tablet (6 sources) Atypical Antipsychotic Start: 10-31-19 End: 02-01-20 22 take 1 tablet by mouth once aripiprazole (ABILIFY) 30 mg ORAL tablet Take 1 tablet by mouth once daily. Per Dr. Ley. 0 10/30/2010 01/31/2022 Discontinued Comment on above: Take 1 tablet by jessica once daily. Per Dr. Ley. atenolol 25 mg oral tablet (20 sources) beta-Adrenergic Alem Start: 12-19-19 atenolol 25 mg oral tablet 0 Refill(s) Start Date: 09/23/23 Status: Ordered Repeat number: 1 Comment on above: Take 25 mg by mouth every morning. atorvastatin 80 mg oral tablet (20 sources) HMG-CoA Reductase Inhibitor Start: 12-19-19 23 Atorvastatin 80 mg tablet Active 40 mg PO AT BEDTIME December 18, 2022 1:20pm Start: 12-18-2022 take 40 mg by mouth at bedtime Atorvastatin Active 40 MG PO AT BEDTIME December 18, 2022 1:20pm Start: 03-23-2016 End: 12-18-2022 take 1 tablet by mouth at bedtime Atorvastatin 80 MG tablet Discontinued 80 mg PO AT BEDTIME July 25, 2016 1:00am December 18, 2022 1:46pm Comment on above: Take 1 tablet by jessica th once daily. baclofen 5 mg oral tablet (12 sources) gamma-Aminobutyric Acid-ergic Agonist Start: 12-18-2022 take 1 tablet by mouth three times daily Baclofen 5 mg tablet Active 5 mg PO THREE TIMES A DAY December 18, 2022 12:00am Start: 12-18-2022 take 5 mg by mouth once daily Baclofen Active 5 MG PO DAILY December 18, 2022 12:00am benzonatate 100 mg oral capsule (20 sources) Non-narcotic Antitussive Start: 12-18-2022 take 1 capsule by mouth every eight hours as needed for cough Benzonatate 100 mg capsule Active 100 mg PO Q8H as needed for cough December 18, 2022 12:00am take 1 capsule by mo [facility] every eight hours as needed benzonatate (TESSALON PERLES) 100 mg capsule Take 100 mg by mouth three times daily as needed for cough. Active Comment on above: Take 100 mg by mouth three times daily as needed for cough. bisacodyl 10 mg rectal suppository (20 sources) Stimulant Laxative Start: 12-18-2022 Bisacodyl (Dulcolax (Bisacodyl)) 10 mg suppository Active 10 mg RC .Q24 PRN as needed for constipation December 18, 2022 12:00am Start: 12-18-2022 Bisacodyl (Dul colax (Bisacodyl)) 10 mg suppository Active 10 MG RC Q8H December 18, 2022 12:00am Start: 11-22-2020 take 1 tablet by [facility] every eight hours as needed for constipation Bisacodyl (Dulcolax (Bisacodyl)) 5 mg tablet,delayed release (DR/EC) Active 5 mg PO EVERY 8 HOURS NEEDED as needed for constipation December 18, 2022 12:00am Start: 11-22-2020 bisacodyl 10 m g rectal suppository Dose : 10 mg = 1 supp, Rectal, TID, PRN as needed for constipation, # 10 supp, 0 Refill(s) Start Date: 11/22/20 Status: Ordered Quantity: 10.0 Unit: supp Repeat number: 1 Comment on above: [address] e every 8 hours as needed for constipation. Blood Sugar Diagnostic, Drum (ACCU-CHEK COMPACT TEST) strp (20 sources) Start: 07-03-2013 Blood Sugar Diagnostic, Drum (ACCU-CHEK COMPACT TEST) strp Test blood sugars 6 times daily, 250.02, insulin use: yes, fluctuating sugars, intense monitoring, and office follow up 200 Strip 11 07/03/2013 Active Comment on above: Test blood sugars 6 times daily, 250.02, insulin use: yes, fluctuating sugars, intense monitoring, and office follow up Blood-Glucose Sensor (FREESTYLE ELISA 3 SENSOR) vivek (11 sources) Blood-Glucose Se nsor (FREESTYLE ELISA 3 SENSOR) vivek Active Blood-Glucose Se nsor (FREESTYLE ELISA 3 SENSOR) vivek busPIRone hydrochloride 5 mg oral tablet (1 source) Start: 11-27-2023 take 1 tablet by mouth twice daily Buspirone 5 mg tablet Active 5 mg PO TWICE A DAY November 27, 2023 12:00am canagliflozin 300 mg oral tablet (20 sources) Sodium-Glucose Cotransporter 2 Inhibitor Start: 10-16-2014 take 1 tablet by mouth once daily before breakfast canagliflozin (INVOKANA) 300 mg tablet Indications: Type II or unspecified type diabetes mellitus without mention of complication, uncontrolled Take 1 tablet by mouth daily before breakfast. 30 tablet 1 10/16/2014 Active Start: 08-20-2014 take 1 tablet by jessica th once daily before breakfast canagliflozin (INVOKANA) 100 mg tab Take 1 tablet by mouth daily before breakfast. 30 tablet 0 08/20/2014 Active Comment on above: Take 1 tablet by jessica th daily before breakfast. carboxymethylcellulose sodiu m 5 mg/ml ophthalmic solution (20 sources) Start: Carboxymethylcellulose Sodiu m (Refresh Tears) 0.5 % drops Active 1 NMA EACH EYE TWICE A DAY January 30, 2024 12:00am Start: 12-18-2022 End: 01-30-2024 Carboxymethylcellulose Sodiu m (Refresh Tears) 0.5 % drops Discontinued 1 NMA OPHTHALMIC AT BEDTIME December 18, 2022 12:00am January 30, 2024 11:18am Start: 12-18-2022 Carboxymethylc ellulose Sodium (Refresh Tears) 0.5 % drops Active 1 DRP OPHTHALMIC AT BEDTIME December 18, 2022 12:00am carboxymethylcel lulose (REFRESH TEARS) 0.5 % drop 1 Drop as needed. Active Comment on above: 1 Drop as needed. cholecalciferol 0.125 mg oral capsule (20 sources) Vitamin D Start: 12-19-19 23 take 1 capsule by mouth once daily Cholecalciferol (Vitamin D3) 125 mcg (5,000 unit) capsule Active 125 ug PO DAILY December 18, 2022 12:00am Start: 12-18-2022 take 50 ug by mouth once daily Cholecalciferol (Vitamin D3) Active 50 MCG PO DAILY December 18, 2022 12:00am Start: 07-29-2021 End: 12-18-2022 take 1 tablet by mouth once daily Cholecalciferol (Vitamin D3) (Vitamin D3) 50 mcg (2,000 unit) Tablet Discontinued 50 ug PO DAILY July 29, 2021 1:00am December 18, 2022 1:27pm take 1 tablet by jessica once daily cholecalciferol (VITAMIN D-3) 50 mcg (2,000 unit) tablet Take 2,000 Units by mouth once daily. Active Comment on above: Take 2,000 Units by mouth once daily. ciprofloxacin 2 mg/ml otic solution (7 sources) Quinolone Antimicrobial Start: 02-15-20 21 Cetraxal 0.2% otic solution Dose = 1 EA, Ear, right, q12h, # 14 EA, 0 Refill(s) Start Date: 02/14/21 Status: Ordered Quantity: 14.0 Unit: EA Repeat number: 1 cloZAPine 100 mg oral tablet (6 sources) Atypical Antipsychotic Start: 04-22-20 14 End: 02-01-20 22 take 3 tablets by mouth once daily at bedtime cloZAPine (CLOZARIL) 100 mg tablet Take 3 tablets by mouth daily at bedtime. Per psychiatry. 0 04/22/2014 01/31/2022 Discontinued Comment on above: Take 3 tablets by mo [facility] daily at bedtime. Per psychiatry. collagenase 0.25 unt/mg topical ointment (11 sources) Collagen-specific Enzyme collagenase (SANTYL) ointment Apply to affected area once daily. 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 Active Comment on above: Apply to affected ar ea once daily. 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 COMPOUNDED PRESCRIPTION (20 sources) Start: 02-03-20 14 COMPOUNDED PRESCRIPTION Ketamine 10 %, Gabapentin 10 %, Imipramine 3 %, Bupivacaine 5 %, Amitriptyline 2 % 0 02/02/2014 Active Start: 11-01-2010 COMPOUNDED PRE SCRIPTION Indications: Urge incontinence , Other specified disorder of bladder PREVAIL PADS Long and heavy Urinary incontinence Uses 3-4 / day 120 Each 11/01/2010 Active Start: 11-01-2010 COMPOUNDED PRE SCRIPTION Indications: Urge incontinence , Other specified disorder of bladder PULL UPS Adult Large Urinary Incontinence Uses 2 per night 60 Each 11/01/2010 Active Comment on above: PREVAIL PADS Long an d heavy Urinary incontinence Uses 3-4 / day PULL UPS Adult Large Urinary Incontinence Uses 2 per night Ketamine 10 %, Gabap entin 10 %, Imipramine 3 %, Bupivacaine 5 %, Amitriptyline 2 % cycloSPORINE 0.5 mg/ml ophthalmic suspension (20 sources) Calcineurin Inhibitor Immunosuppressant Start: 07-29-2021 Cyclosporine (Restasis) 0.05 % Dropperette Active 1 DRP EACH EYE Q12H July 29, 2021 1:00am Start: 02-01-2017 take 1 drop(s) into the eye(s) twice daily cycloSPORINE (RESTASIS) 0.05 % ophthalmic emulsion 1 Drop twice daily. 0 02/01/2017 Active Comment on above: 1 Drop twice daily. Cyclosporine (Restasis) 0.05 % dropperette (1 source) Start: 01-30-2024 Cyclosporine (Restasis) 0.05 % dropperette Active 1 NMA EACH EYE Q12H January 30, 2024 12:00am 1 ml denosumab 60 mg/ml prefilled syringe (20 sources) RANK Ligand Inhibitor Start: 10-07-2023 End: 10-01-2024 60 mg, SUBCUTANEOUS, EVERY 6 MONTHS, 2 doses, First dose on 10/07/23 at 1000, Last dose on 04/04/24 at 1000, Allow To Come To Room Temperature Before Administration. REFRIGERATE Start: 01-31-2022 End: 10-01-2024 denosumab 60 mg injection (P ROLIA) dexlansoprazole 60 mg delayed release oral capsule (15 sources) Proton Pump Inhibitor Start: 02-01-2017 End: 01-31-2022 Dexlansoprazole (DEXILANT) 60 mg CpDM Take by mouth. 0 02/01/2017 01/31/2022 Discontinued Start: 03-23-2016 DEXILANT 60 MG CPDR DEXLANSOPRAZOLE [id number] Karthikeyan [facility] Comment on above: Take by mouth. diclofenac sodium 0.01 mg/mg topical gel (20 sources) Nonsteroidal Anti-inflammatory Drug Start: 3 apply 2 g topically every eight hours as needed for pain Diclofenac Sodium 1 % gel Active 2 g TOPICAL EVERY 8 HOURS NEEDED as needed for pain December 18, 2022 12:00am apply to single elbow, wrist or hand; for hand includes palm/fingers/back of hand Start: 12-18-2022 apply 2 g topically once Diclo fenac Sodium Active 2 GM TOPICAL ONCE December 18, 2022 12:00am apply to single elbow, wrist or hand; for hand includes palm/fingers/back of hand Start: 03-23-2016 End: 06-28-2017 take 1 tablet by mouth at bedtime Diclofenac Sodium 50 MG tablet Discontinued 50 mg PO AT BEDTIME July 25, 2016 1:00am June 28, 2017 1:53pm diclofenac (VOLT AREN) 1 % topical gel Apply to affected area four times daily as needed. PRN, right hip pain Active Comment on above: Take 1 tablet by jessica twice daily. Apply to affected ar ea four times daily as needed. PRN, right hip pain dulaglutide (TRULICITY) 3 mg/0.5 mL pen injector (11 sources) inject 3 mg by subcutaneous injection every week dulaglutide (TRULICITY) 3 mg/0.5 mL pen injector Inject 3 mg subcutaneously one time a week. Active inject 3 mg by subcu taneous injection every week dulaglutide (TRULICITY) 3 mg/0.5 mL pen injector Inject 3 mg subcutaneously one time a week. 0 Active Comment on above: Inject 3 mg subcutan eously one time a week. DULoxetine 60 mg delayed release oral capsule (20 sources) Serotonin and Norepinephrine Reuptake Inhibitor Start: 1 take 1 capsule by mouth twice daily Duloxetine (Cymbalta) 60 mg capsule,delayed release(DR/EC) Active 60 mg PO TWICE A DAY January 16, 2023 12:00am Start: 03-08-2019 End: 12-18-2022 take 2 capsules by mouth once daily Duloxetine 60 MG capsule Discontinued 120 mg PO DAILY March 08, 2019 12:00am December 18, 2022 1:30pm Start: 03-08-2019 End: 12-18-2022 take 120 mg by mouth once daily Duloxetine Discontinue d 120 MG PO DAILY March 08, 2019 12:00am December 18, 2022 1:30pm Comment on above: Take 60 mg by mouth twice daily. emollient combination no.60 gel (11 sources) emollient combin ation no.60 gel Apply to affected area. Active emollient combin ation no.60 gel Apply to affected area. 0 Active Comment on above: Apply to affected ar ea. empagliflozin 25 mg oral tablet (6 sources) Sodium-Glucose Cotransporter 2 Inhibitor Start: 02-01-2017 End: 01-31-2022 empagliflozin (JARDIANCE) 25 mg tab Take by mouth. 0 02/01/2017 01/31/2022 Discontinued Comment on above: Take by mouth. [id number] 0.3 ml EPINEPHrine 1 mg/ml auto-injector (20 sources) alpha-Adrenergic Agonist, beta-Adrenergic Agonist, Catecholamine Start: 12-18-2022 Epinephrine (Epipen) 0.3 mg/0.3 mL auto-injector Active 0.3 mg IM every 5 to 15 minutes as needed for anaphylaxis December 18, 2022 12:00am do not exceed 3 doses per episode Start: 03-08-2019 End: 03-11-2019 Epinephrine 0.3 MG syringe D iscontinued 0.3 mg NEEDED as needed for allergic reaction March 08, 2019 12:00am March 11, 2019 3:35pm EPINEPHrine (EPI PEN 2-STAN) 0.3 mg/0.3 mL auto-injector Inject 0.3 mg intramuscularly as needed. Active Comment on above: Inject 0.3 mg intram uscularly as needed. escitalopram 20 mg oral tablet (6 sources) Serotonin Reuptake Inhibitor Start: 014 End: take 1 tablet by mouth once daily at bedtime escitalopram oxalate (LEXAPRO) 20 mg tablet Take 1 tablet by mouth daily at bedtime. Per psychiatry. 0 11/17/2013 01/31/2022 Discontinued Comment on above: Take 1 tablet by jessica th daily at bedtime. Per psychiatry. esomeprazole 40 mg delayed release oral capsule (6 sources) Proton Pump Inhibitor Start: 014 End: take 1 capsule by mouth once daily before breakfast esomeprazole 40 mg capsule Indications: Esophageal reflux , Chest pain, unspecified Take 1 capsule by mouth daily before breakfast. Cuates Docudose. 30 capsule 11 11/11/2013 01/31/2022 Discontinued Comment on above: Take 1 capsule by [facility] daily before breakfast. Selena's Docudose. Flash Glucose Sensor (Freestyle Elisa 2 Sensor) kit (12 sources) Start: Flash Glucose Sensor (Freestyle Elisa 2 Sensor) kit Active 0 .Route December 17, 2022 11:00pm As directed Start: 12-18-2022 Flash Glucose Sensor (Freestyle Elisa 2 Sensor) kit Active 0 .Route December 18, 2022 12:00am As directed Start: 12-18-2022 Flash Glucose Sensor (Freestyle Elisa 2 Sensor) kit Active 0 .ROUTE December 18, 2022 12:00am As directed FLUoxetine 20 mg oral capsule (20 sources) Serotonin Reuptake Inhibitor Start: 02-01-2017 take 1 capsule by mouth once daily FLUoxetine (PROZAC) 20 mg capsule Take 1 capsule by mouth once daily. 0 02/01/2017 Active Comment on above: Take 1 capsule by [facility] once daily. fluticasone propionate 0.05 mg/actuat metered dose nasal spray (20 sources) Corticosteroid Start: 12-18-2022 take 50 ug nasal route once daily Fluticasone Propionate (Flonase Allergy Relief) 50 mcg/actuation spray,suspension Active 2 NMA INTRANASAL DAILY December 18, 2022 12:00am administer into each nostril Start: 12-18-2022 take 1 spray(s) nasa l route once daily Fluticasone Propionate (Flonase Allergy Relief) 50 mcg/actuation spray,suspension Active 2 SPRAY INTRANASAL DAILY December 18, 2022 12:00am administer into each nostril Start: 11-22-2020 take 1 dose nasal ro [place] once daily in the morning Flonase 50 mcg/inh nasal spray Dose = 2 spray(s), Nostril, each, qAM, 0 Refill(s) Start Date: 02/14/21 Status: Ordered Repeat number: 1 Start: 02-01-2017 take 1 spray(s) nasa l route once daily fluticasone (FLONASE) 50 mcg/actuation nasal spray Use 1 [place] in each nostril once daily. . 0 02/01/2017 Active Start: 03-23-2016 FLONASE ALLERG Y RELIEF 50 MCG/ACT SUSP FLUTICASONE PROPIONATE [id number] Karthikeyan [facility] Start: 03-23-2016 FLONASE ALLERG Y RELIEF 50 MCG/ACT SUSP FLUTICASONE PROPIONATE [id number] [facility] Start: 09-01-2014 take 2 spray(s) nasa l route once daily fluticasone (FLONASE) 50 mcg/actuation nasal spray Indications: Rhinitis Use 2 Sprays in each nostril once daily. 1 Bottle 11 09/01/2014 Active Comment on above: Use 2 Sprays in each nostril once daily. Use 1 [place] in each nostril once daily. . Fluticasone-Umeclidin- Vilanter (12 sources) Start: 12-18-2022 Wemlfmxkaxa-Qagzoveyq-Aj lanter (Trelegy Ellipta) 200-62.5-25 mcg blister with device Active 1 NMA INHALATION DAILY December 18, 2022 12:00am Start: 12-18-2022 Fluticasone-Um eclidin-Vilanter (Trelegy Ellipta) 200-62.5-25 mcg blister with device Active 1 INH INHALATION DAILY December 17, 2022 11:00pm Start: 12-18-2022 Fluticasone-Um eclidin-Vilanter (Trelegy Ellipta) 200-62.5-25 mcg blister with device Active 1 INH INHALATION DAILY December 18, 2022 12:00am obejyomqiio-qysybsvax-acppuo er (TRELEGY ELLIPTA) 200-62.5-25 mcg inhalation powder (11 sources) take 1 puff(s) by inhalation once daily cnajhffdpdj-lugvrbdpw-enzmyfxj (TRELEGY ELLIPTA) 200-62.5-25 mcg inhalation powder Inhale 1 Puff as instructed once daily. Active take 1 puff(s) by in halation once daily ddlhosetuve-wflmnrwra-actnxxwv (TRELEGY ELLIPTA) 200-62.5-25 mcg inhalation powder Inhale 1 Puff as instructed once daily. 0 Active Comment on above: Inhale 1 Puff as ins tructed once daily. furosemide 20 mg oral tablet (20 sources) Loop Diuretic Start: 11-24-2023 take 3 tablets by mouth once daily in the morning Furosemide 20 mg tablet Active 60 mg PO EVERY MORNING November 24, 2023 8:13pm Start: 11-24-2023 take 60 mg by mouth once daily in the morning Furosemide Active 60 MG PO EVERY MORNING November 24, 2023 8:13pm Start: 09-23-2023 furosemide 40 mg oral tablet 0 Refill(s) Start Date: 09/23/23 Status: Ordered Repeat number: 1 Start: 01-16-2023 End: 11-24-2023 take 2 tablets by mouth once daily in the morning Furosemide 20 mg tablet Discontinued 40 mg PO EVERY MORNING January 16, 2023 1:16pm November 24, 2023 8:13pm take 2 and a half tabs to be 50mg daily Start: 01-16-2023 End: 11-24-2023 take 2 tablets by mouth once daily in the morning Furosemide Discontinued 40 MG PO EVERY MORNING January 16, 2023 1:16pm November 24, 2023 8:13pm take 2 and a half tabs to be 50mg daily Start: 12-18-2022 End: 01-16-2023 take 1 tablet by mouth once daily in the morning Furosemide 20 mg tablet Discontinued 20 mg PO EVERY MORNING December 18, 2022 12:00am January 16, 2023 1:25pm furosemide (LASI X ORAL) Take 50 mg by mouth every morning. Lasix 40 mg; 1 tablet PO taken with Lasix 20 mg; 0.5 tablet (10 mg) PO to equal 50 mg every morning for Edema Active Comment on above: Take 50 mg by mouth every morning. Lasix 40 mg; 1 tablet PO taken with Lasix 20 mg; 0.5 tablet (10 mg) PO to equal 50 mg every morning for Edema Jessi-Tussin Expectorant (7 sources) Start: 11-22-2020 take 10 mg by mouth every four hours for cough Jessi-Tussin Expectorant See Instructions, 10mg/ml by mouth every Q4 hours needed for cough, 0 Refill(s) Start Date: 11/22/20 Status: Ordered Repeat number: 1 Start: 11-22-2020 take 10 mg by mouth every four hours for cough Jessi-Tussin Expectorant See Instructions, 10mg/ml by mouth every Q4 hours needed for cough, 0 Refill(s) Start Date: 11/22/20 Status: Ordered guaiFENesin 20 mg/ml oral solution (20 sources) Start: 12-18-2022 take 200 mg by mouth every four hours as needed for cough Guaifenesin 100 mg/5 mL liquid Active 200 mg PO Q4H as needed for cough December 18, 2022 12:00am Start: 06-19-2018 End: 03-11-2019 take 1 tablet by mouth once daily Guaifenesin (Mucinex) 600 MG tablet Discontinued 600 mg PO DAILY June 19, 2018 1:00am March 11, 2019 3:24pm Start: 02-01-2017 take 2 tablets by mo uth twice daily guaiFENesin (MUCINEX) 600 mg 12 hr tablet Take 2 tablets by mouth twice daily. 0 02/01/2017 Active Comment on above: Take 2 tablets by mo uth twice daily. Take 10 mL by mouth every 4 hours as needed for cough. hydrOXYzine pamoate 25 mg oral capsule (20 sources) Antihistamine Start: 3 take 1 capsule by mouth at bedtime Hydroxyzine Pamoate (Vistaril) 25 mg capsule Active 25 mg PO AT BEDTIME December 18, 2022 12:00am Comment on above: Take 25 mg by mouth twice daily as needed for itching/rash. 3 ml insulin aspart, human 100 unt/ml pen injector (20 sources) Insulin Analog Start: 2 NovoLOG FlexPen 100 units/mL injectable solution 0 Refill(s) Start Date: 04/28/22 Status: Ordered Repeat number: 1 Start: 07-29-2021 End: 11-27-2023 Insulin Aspart U-100 100 uni t/mL (3 mL) Insulin Pen Discontinued U SC WITH LUNCH July 29, 2021 1:00am November 27, 2023 12:24pm 8 UNBITS IN AM 6 UNITS AT LUNCH 8 UNITS IN THE EVENING PLUS SS Start: 07-29-2021 Insulin Aspart U-100 Active UNIT SC WITH LUNCH July 29, 2021 1:00am 8 UNBITS IN AM 6 UNITS AT LUNCH 8 UNITS IN THE EVENING PLUS SS Start: 08-12-2014 insulin aspart (NOVOLOG FLEXPEN) 100 unit/mL inpn Indications: Type II or unspecified type diabetes mellitus without mention of complication, uncontrolled Inject 16 units with breakfast and 13 units lunch and 19 units with dinner 5 Pen 11 08/12/2014 Active Comment on above: Inject 16 units with breakfast and 13 units lunch and 19 units with dinner 3 ml insulin degludec 200 unt/ml pen injector (20 sources) Insulin Analogue Start: inject 1 dose by subcutaneous injection once daily Tresiba FlexTouch 200 units/mL 3 mL subcutaneous solution Dose : 120 unit(s) =, Subcutaneous, qDay, rotate injection sites, # 9 mL, 0 Refill(s) Start Date: 02/14/21 Status: Ordered Quantity: 9.0 Unit: mL Repeat number: 1 Start: 03-08-2019 End: 03-11-2019 Insulin Degludec 100 UNIT/ML insulin pen Discontinued 65 U SQ DAILY March 08, 2019 12:00am March 11, 2019 3:35pm Start: 03-23-2016 TRESIBA FLEXTO UCH 100 UNIT/ML SOPN INSULIN DEGLUDEC [id number] K[facility]ikeyan [facility] Start: 03-23-2016 TRESIBA FLEXTO UCH 100 UNIT/ML SOPN INSULIN DEGLUDEC [id number] Karthikeyan [facility] 1.5 ml insulin glargine 300 unt/ml pen injector (20 sources) Insulin Analog Start: 12-18-2022 Insulin Glargi ne U-300 Conc (Toujeo Solostar U-300 Insulin) 300 unit/mL (1.5 mL) insulin pen Active 30 UNIT SC DAILY December 18, 2022 12:00am Start: 07-29-2021 End: 11-22-2022 Insulin Glargine (Lantus Stephanie ostar U-100 Insulin) 100 unit/mL (3 mL) Insulin Pen Discontinued 76 U SC TWICE A DAY July 29, 2021 1:00am November 22, 2022 9:17am Start: 08-19-2014 Lantus Solosta r Pen 100 units/mL 3 mL Pen Subcutaneous, qHS, 85 units, 0 Refill(s) Start Date: 11/22/20 Status: Ordered Repeat number: 1 Start: 08-19-2014 insulin glargi ne (LANTUS SOLOSTAR) 100 unit/mL (3 mL) inpn Indications: Type II or unspecified type diabetes mellitus without mention of complication, uncontrolled Inject 55 Units subcutaneously daily at bedtime. 10 Pen 11 08/19/2014 Active Comment on above: Inject 55 Units subc utaneously daily at bedtime. Insulin Glargine U-300 Conc (Toujeo Max U-300 Solostar) 300 unit/mL (3 mL) insulin pen (1 source) Start: 01-30-2024 Insulin Glargine U-300 Conc (Toujeo Max U-300 Solostar) 300 unit/mL (3 mL) insulin pen Active 100 U SC TWICE A DAY January 30, 2024 12:00am Insulin Glargine U-300 Conc (Toujeo Solostar U-300 Insulin) 300 unit/mL (1.5 mL) insulin pen (1 source) Start: 12-18-2022 Insulin Glargine U-300 Conc (Toujeo Solostar U-300 Insulin) 300 unit/mL (1.5 mL) insulin pen Active 100 U SC TWICE A DAY December 18, 2022 12:00am insulin glargine,hum.rec.anl og (TOUJEO MAX U-300 SOLOSTAR SUBCUTANEOUS) (11 sources) insulin glargine,hum.rec.anlog (TOUJEO MAX U-300 SOLOSTAR SUBCUTANEOUS) Inject subcutaneously as directed. Active insulin glargine ,hum.rec.anlog (TOUJEO MAX U-300 SOLOSTAR SUBCUTANEOUS) Inject subcutaneously as directed. 0 Active Comment on above: Inject subcutaneousl y as directed. 3 ml insulin lispro 100 unt/ml pen injector (4 sources) Insulin Analog Start: 01-30-2024 Insulin Lispro (Humalog Kwikpen Insulin) 100 unit/mL insulin pen Active 44 U SC DAILY January 30, 2024 12:00am Start: 01-30-2024 Insulin Lispro (Humalog Kwikpen Insulin) 100 unit/mL insulin pen Active 48 U SC WITH DINNER January 30, 2024 12:00am Start: 11-27-2023 Insulin Lispro (Humalog Kwikpen Insulin) 100 unit/mL insulin pen Active 1 sliding scale dose SC THREE TIMES A DAY November 27, 2023 12:00am PRIOR TO MEALS Start: 11-27-2023 Insulin Lispro (Humalog Kwikpen Insulin) 100 unit/mL insulin pen Active 44 U SC WITH LUNCH November 27, 2023 12:00am Insulin [place], Disposable, (PEN NEEDLE) 29 x 1/2 ndle (20 sources) Start: 08-26-2014 Insulin Needle s, Disposable, (PEN NEEDLE) 29 x 1/2 ndle Indications: Type II or unspecified type diabetes mellitus without mention of complication, uncontrolled Use one needle for each dose, 5 x per day total. 200 Each 11 08/26/2014 Active Comment on above: Use one needle for e ach dose, 5 x per day total. insulin, regular, human 100 unt/ml injectable solution (7 sources) Insulin Start: 11-22-2020 insulin regula r human recombinant 100 units/mL injectable solution Subcutaneous, Sliding scale: 0-150 = 0 Units 151-200 = 2 units 250 = 4 units 251-300 = 6 units 301-350 = 8 units > 350 = 10 units, 0 Refill(s) Start Date: 11/22/20 Status: Ordered Repeat number: 1 ipratropium bromide 0.021 mg/actuat metered dose nasal spray (20 sources) Anticholinergic Start: 12-18-2022 Ipratropium Br omide 21 mcg (0.03 %) spray,non-aerosol Active 2 NMA INTRANASAL TWICE A DAY December 18, 2022 12:00am administer into each nostril Start: 12-18-2022 take 1 spray(s) nasa l route twice daily Ipratropium [place] Active 2 SPRAY INTRANASAL TWICE A DAY December 18, 2022 12:00am administer into each nostril Ipratropium Brom anuja (ATROVENT) 21 mcg (0.03 %) nasal spray Use 2 Sprays in the nose every 12 hours. Active Comment on above: Use 2 Sprays in the nose every 12 hours. ipratropium-salbutam ol (COMBIVENT RESPIMAT) 20-100 mcg/actuation inhaler (11 sources) take 1 puff(s) by inhalation every six hours as needed, then take 6 puff(s) by inhalation once daily as needed ipratropium-salbutamol (COMBIVENT RESPIMAT) 20-100 mcg/actuation inhaler Inhale 1 Puff as instructed every 6 hours as needed. Maximum 6 puffs daily. Active take 1 puff(s) by in halation every six hours as needed, then take 6 puff(s) by inhalation once daily as needed ipratropium-salbutamol (COMBIVENT RESPIM AT) 20-100 mcg/actuation inhaler Inhale 1 Puff as instructed every 6 hours as needed. Maximum 6 puffs daily. 0 Active Comment on above: Inhale 1 Puff as ins tructed every 6 hours as needed. Maximum 6 puffs daily. lactobacillus rhamnosus gg [id number] unt oral capsule (1 source) Start: take 10 capsules by mouth twice daily Lactobacillus Rhamnosus Gg (Culturelle) 10 billion cell capsule Active 1 NMA PO TWICE A DAY November 27, 2023 12:00am lamoTRIgine 150 mg oral tablet (6 sources) Mood Stabilizer, Anti-epileptic Agent Start: 014 End: lamoTRIgine (LAMICTAL) 150 mg tablet Take 1 tablet by mouth twice daily. Per psychiatry. 0 11/17/2013 01/31/2022 Discontinued Comment on above: Take 1 tablet by jessica th twice daily. Per psychiatry. levocetirizine dihydrochloride 5 mg oral tablet (11 sources) Histamine-1 Receptor Antagonist take 1 tablet by mouth once daily levocetirizine 5 mg tablet Take 5 mg by mouth once daily. Active Comment on above: Take 5 mg by mouth o nce daily. lisinopril 2.5 mg oral tablet (20 sources) Angiotensin Converting Enzyme Inhibitor Start: take 1 tablet by mouth once daily Lisinopril 2.5 mg tablet Active 2.5 mg PO DAILY December 18, 2022 12:00am Comment on above: Take 2.5 mg by mouth every morning. loperamide hydrochloride 2 mg oral capsule (20 sources) Opioid Agonist Start: Loperamide (Anti-Diarrheal (Loperamide)) 2 mg capsule Active 4 mg PO TWICE A DAY as needed for loose stool November 27, 2023 12:00am Start: 07-29-2021 End: 12-18-2022 take 1 capsule by mouth every four hours as needed for diarrhea Loperamide 2 mg Capsule Discontinued 2 mg PO Q4H as needed for Diarrhea July 29, 2021 1:00am December 18, 2022 1:44pm Start: 11-22-2020 take 1 tablet by jessica once as needed, then take 1 tablet by mouth twice daily as needed Imodium A-D 2 mg oral tablet Dose : 2 mg = 1 tab(s), Oral, BID, PRN Loose stool, 0 Refill(s) Start Date: 11/22/20 Status: Ordered Repeat number: 1 Start: 02-01-2017 take 2 tablets by mo [facility] every twelve hours as needed loperamide HCl (IMODIUM) 2 mg tab Take 4 mg by mouth twice daily as needed for diarrhea. 0 02/01/2017 Active Start: 02-01-2017 take 1 capsule by [facility] every six hours as needed loperamide (IMODIUM) 2 mg cap(s) Take 1 capsule by mouth four times daily as needed. 0 02/01/2017 Active Start: 03-23-2016 IMODIUM A-D 1 MG/7.5ML LIQD LOPERAMIDE HCL [id number] Karthikeyan [facility] Start: 03-23-2016 IMODIUM A-D 1 MG/7.5ML LIQD LOPERAMIDE HCL [id number] Karthikeyan [facility] Comment on above: Take 1 capsule by mo [facility] four times daily as needed. Take 4 mg by mouth t wice daily as needed for diarrhea. loratadine 10 mg oral tablet (12 sources) Start: 3 take 1 tablet by mouth once daily Loratadine (Claritin) 10 mg tablet Active 10 mg PO DAILY December 18, 2022 12:00am lurasidone hydrochloride 80 mg oral tablet (20 sources) Atypical Antipsychotic Start: 2 take 1 tablet by mouth once daily Lurasidone (Latuda) 80 mg Tablet Active 80 mg PO DAILY July 29, 2021 1:00am Start: 11-22-2020 Latuda 40 mg o ral tablet Dose : 40 mg = 1 tab(s), Oral, qDay, # 90 tab(s), 0 Refill(s) Start Date: 11/22/20 Status: Ordered Quantity: 90.0 Unit: tab(s) Repeat number: 1 take 1 tablet by jessica th once daily lurasidone (LATUDA) 60 mg tab tablet Take by mouth once daily. Active Comment on above: Take by mouth once d aily. Take 80 mg by mouth every morning. Magnesium Hydroxide (11 sources) magnesium hydrox anuja (MILK OF MAGNESIA ORAL) Take 30 mL by mouth as directed. Active magnesium hydrox anuja (MILK OF MAGNESIA ORAL) Take 30 mL by mouth as directed. 0 Active Comment on above: Take 30 mL by mouth as directed. magnesium oxide 400 mg oral tablet (20 sources) Start: 02-01-2017 take 1 tablet by mouth once daily magnesium oxide (MAG-OX) 400 mg tablet Take 1 tablet by mouth once daily. 0 02/01/2017 Active Start: 03-23-2016 MAGNESIUM OXID E 400 (240 Mg) MG TABS MAGNESIUM OXIDE [id number] K[facility]ikeyan [facility] Start: 03-23-2016 MAGNESIUM OXID E 400 (240 Mg) MG TABS MAGNESIUM OXIDE [id number] [facility]key[facility] Comment on above: Take 1 tablet by jessica once daily. melatonin 3 mg oral capsule (12 sources) Start: 3 take 1 capsule by mouth at bedtime Melatonin 3 mg capsule Active 3 mg PO BEDTIME December 18, 2022 12:00am metFORMIN hydrochloride 500 mg oral tablet (20 sources) Biguanide Start: 3 take 1 tablet by mouth twice daily Metformin 500 mg tablet Active 500 mg PO TWICE A DAY December 18, 2022 12:00am Start: 10-05-2013 take 1 tablet by jessica twice daily at mealtime metFORMIN 1,000 mg tablet Indications: Type II or unspecified type diabetes mellitus without mention of complication, uncontrolled Take 1 tablet by mouth twice daily with meals. 60 tablet 11 10/05/2013 Active Comment on above: Take 1 tablet by jessica twice daily with meals. Milk of Magnesia 8% oral suspension (7 sources) Start: 11-22-2020 Milk of Magnesia 8% oral suspension 2.4 gram(s) Dose = 30 mL, Oral, qHS, PRN as needed for constipation, # 300 mL, 0 Refill(s) Start Date: 11/22/20 Status: Ordered Quantity: 300.0 Unit: mL Repeat number: 1 Start: 11-22-2020 Milk of Padmini ia 8% oral suspension 2.4 gram(s) Dose = 30 mL, Oral, qHS, PRN as needed for constipation, # 300 mL, 0 Refill(s) Start Date: 11/22/20 Status: Ordered montelukast 10 mg oral tablet (20 sources) Leukotriene Receptor Antagonist Start: 12-18-2022 take 1 tablet by mouth once daily Montelukast 10 mg tablet Active 10 mg PO DAILY December 18, 2022 12:00am Comment on above: Take 10 mg by mouth every morning. multivitamin tablet (20 sources) Start: 02-01-2017 take 1 tablet by mouth once daily multivitamin tablet Take 1 tablet by mouth once daily. 0 02/01/2017 Active Comment on above: Take 1 tablet by jessica th once daily. Multivitamins-[place]-Lutein (CENTRUM SILVER) tab (20 sources) Start: 01-06-2014 take 1 tablet by mouth once daily Multivitamins-[place] r[place]-Lutein (CENTRUM SILVER) tab Indications: Fatigue Take 1 tablet by mouth once daily. Generic substitution permitted 30 tablet 11 01/06/2014 Active Comment on above: Take 1 tablet by jessica th once daily. Generic substitution permitted mupirocin 0.02 mg/mg topical ointment (20 sources) RNA Synthetase Inhibitor Antibacterial Start: 09-19-2013 mupirocin 2 % ointment Indications: Cellulitis of external ear Apply 1 application to affected area three times daily. for 5 to 10 days 1 Tube 0 09/19/2013 Active Comment on above: Apply 1 application to affected area three times daily. for 5 to 10 days naloxegol 25 mg oral tablet (20 sources) Opioid Antagonist Start: 07-29-2021 Movantik 25 mg oral tablet 0 Refill(s) Start Date: 09/23/23 Status: Ordered Repeat number: 1 Comment on above: Take 25 mg by mouth every morning. For constipation naloxone hydrochloride 0.4 mg/ml injectable solution (20 sources) Opioid Antagonist Start: 12-18-2022 Naloxone 0.4 mg/mL solution Active 0.2 mg SC ONCE as needed for opioid reversal December 18, 2022 12:00am Start: 12-18-2022 Naloxone Activ e 0.2 MG SC ONCE December 18, 2022 12:00am nalOXone HCl 0.4 mg/mL injection 0.4 mg by INJECTION(UNSPECIFIED PARENTERAL ROUTES) route. Active Comment on above: 0.4 mg by INJECTION( UNSPECIFIED PARENTERAL ROUTES) route. OLANZapine 10 mg oral tablet (20 sources) Atypical Antipsychotic Start: 023 take 1 tablet by mouth once daily in the evening Olanzapine (Zyprexa) 10 mg tablet Active 10 mg PO EVERY EVENING December 18, 2022 12:00am Start: 02-01-2017 take 1 tablet by jesscia th once daily at bedtime OLANZapine (ZYPREXA) 5 mg tablet Take 1 tablet by mouth daily at bedtime. 0 02/01/2017 Active Comment on above: Take 1 tablet by jessica th daily at bedtime. pantoprazole 40 mg delayed release oral tablet (20 sources) Proton Pump Inhibitor Start: take 1 tablet by mouth once daily Pantoprazole 40 mg Tablet,Delayed Release (Dr/Ec) Active 40 mg PO DAILY July 29, 2021 1:00am Comment on above: Take 40 mg by mouth every morning. polyethylene glycol 3350 91610 mg powder for oral solution (19 sources) Osmotic Laxative Start: 3 Polyethylene Glycol 3350 (Miralax) 17 gram/dose powder Active 17 g PO DAILY as needed for constipation December 18, 2022 12:00am Start: 11-22-2020 take 17 doses by jessica th once daily as needed for constipation Miralax Powder Packet Dose : 17 gram(s) =, Oral, qDay, PRN Constipation, dissolve in water before taking, # 14 EA, 0 Refill(s) Start Date: 11/22/20 Status: Ordered Quantity: 14.0 Unit: EA Repeat number: 1 Polyethylene Glycol 3350 pow d (20 sources) Start: 02-01-2017 Polyethylene G lycol 3350 powd 0 02/01/2017 Active Start: 02-01-2017 Polyethylene G lycol 3350 powd potassium chloride 20 meq extended release oral tablet (11 sources) Start: 01-16-2023 take 1 tablet by mouth once daily Potassium Chloride 20 mEq tablet extended release Active 20 meq PO DAILY January 16, 2023 12:00am prazosin 1 mg oral capsule (20 sources) alpha-Adrenergi c Alem Start: 07-28-2013 take 1 capsule by mouth at bedtime Prazosin 1 MG capsule Active 1 mg PO AT BEDTIME March 08, 2019 12:00am Comment on above: Take 1 mg by mouth d aily at bedtime. pregabalin 100 mg oral capsule (20 sources) Start: 01-16-2023 take 100 mg by mouth once daily Pregabalin Active 100 MG PO DAILY January 16, 2023 12:00am Start: 11-22-2020 Lyrica 225 mg oral capsule Dose : 225 mg = 1 cap(s), Oral, BID, 0 Refill(s), 81.8 Start Date: 11/22/20 Status: Ordered Repeat number: 1 Start: 06-19-2018 End: 01-16-2023 take 150 mg by mouth twice daily Pregabalin Discontinued 150 mg PO TWICE A DAY 14 7 March 11, 2019 3:35pm January 16, 2023 1:21pm Start: 03-23-2016 take 1 capsule by [facility] twice daily Pregabalin 100 mg capsule Active 100 mg PO TWICE A DAY January 16, 2023 12:00am Comment on above: Take 1 capsule by mo [facility] twice daily. raNITIdine 150 mg oral tablet (20 sources) Histamine-2 Receptor Antagonist Start: 4 take 1 tablet by mouth once daily at bedtime ranitidine 150 mg tablet Indications: Esophageal reflux Take 1 tablet by mouth daily at bedtime. 30 tablet 11 10/05/2013 Active Comment on above: Take 1 tablet by [facility] daily at bedtime. 0.25 mg, 0.5 mg dose 1.5 ml semaglutide 1.34 mg/ml pen injector (1 source) Start: 4 Semaglutide (Ozempic) 0.25 mg or 0.5 mg(2 mg/1.5 mL) pen injector Active 0.5 mg SC January 30, 2024 12:00am for 4 weeks Semaglutide (1 source) Start: 4 Semaglutide (Ozempic) 0.25 mg or 0.5 mg (2 mg/3 mL) pen injector Active 0.25 mg SC .TUESDAY January 30, 2024 12:00am LAST DOSE 02/21/24 simvastatin 20 mg oral tablet (20 sources) HMG-CoA Reductase Inhibitor Start: 4 take 1 tablet by mouth once daily in the evening simvastatin 20 mg tablet Indications: Other and unspecified hyperlipidemia Take by mouth. Take one(1) tablet daily in the evening. (docudose) 90 tablet 3 11/10/2013 Active Comment on above: Take by mouth. Take one(1) tablet daily in the evening. (docudose) tiZANidine 2 mg oral tablet (20 sources) Central alpha-2 Adrenergic Agonist Start: 3 take 1 tablet by mouth every twelve hours as needed Tizanidine 2 mg tablet Active 2 mg PO Q12H as needed for muscle spasticity December 18, 2022 12:00am Start: 11-17-2013 tiZANidine (ZA NAFLEX) 4 mg tablet Take 2 mg by mouth twice daily. Per Pain Mx. 11/17/2013 Active Start: 11-17-2013 tiZANidine (ZA NAFLEX) 4 mg tablet Take 1 tablet by mouth twice daily. Per Pain Mx. 0 11/17/2013 Active Comment on above: Take 1 tablet by jessica th twice daily. Per Pain Mx. Take 2 mg by mouth t wice daily. Per Pain Mx. Trelegy Ellipta 200 mcg-62.5 mcg-25 mcg/inh inhalation powder (6 sources) Start: 04-28-2022 take 1 dose by inhalation once daily Trelegy Ellipta 200 mcg-62.5 mcg-25 mcg/inh inhalation powder Dose = 1 puff(s), Inhalation, qDay, at the same time every day, 0 Refill(s) Start Date: 04/28/22 Status: Ordered Repeat number: 1 Start: 04-28-2022 take 1 dose by inhal ation once daily Trelegy Ellipta 200 mcg-62.5 mcg-25 mcg/inh inhalation powder Dose = 1 puff(s), Inhalation, qDay, at the same time every day, 0 Refill(s) Start Date: 04/28/22 Status: Ordered urea 400 mg/ml topical cream (20 sources) Start: 02-16-2014 urea 40 % crea Indications: Tyloma Apply 1 application to affected area twice daily. 30 g 5 02/16/2014 Active Comment on above: Apply 1 application to affected area twice daily. divalproex sodium 250 mg delayed release oral tablet (6 sources) Mood Stabilizer, Anti-epileptic Agent Start: 02-01-2017 End: 01-31-2022 take 1 tablet by mouth three times daily divalproex DR (DEPAKOTE) 250 mg EC tablet Take 1 tablet by mouth three times daily. 0 02/01/2017 01/31/2022 Discontinued Comment on above: Take 1 tablet by jessica th three times daily. Vitamin D2 2000 intl units (50 mcg) oral capsule (7 sources) Start: 11-22-2020 Vitamin D2 200 0 intl units (50 mcg) oral capsule Dose : 2,000 International_Unit = 1 cap(s), Oral, qDay, with food, # 60 cap(s), 0 Refill(s) Start Date: 11/22/20 Status: Ordered Quantity: 60.0 Unit: cap(s) Repeat number: 1 Start: 11-22-2020 Vitamin D2 200 0 intl units (50 mcg) oral capsule Dose : 2,000 International_Unit = 1 cap(s), Oral, qDay, with food, # 60 cap(s), 0 Refill(s) Start Date: 11/22/20 Status: Ordered Completed/Discontinued Medications Medication Drug Class(es) Dates Sig (Normalized) Sig (Original) ARTIFICIAL TEAR SOLUTION (8 sources) Start: 03-23-2016 ARTIFICIAL TEARS 0.1-0.3 % SOLN ARTIFICIAL TEAR SOLUTION [id number] Karthikeyan Hall ARTIFICIAL TEAR SOLUTION (1 source) Start: 03-23-2016 ARTIFICIAL TEARS 0.1-0.3 % SOLN ARTIFICIAL TEAR SOLUTION [id number] Karthikeyan Hall aspirin 81 mg chewable tablet (15 sources) Nonsteroidal Anti-inflammatory Drug Start: 03-23-2016 ASPIRIN 81 MG CHEW ASPIRIN [id number] Karthikeyan Hall Start: 11-03-2013 End: 01-31-2022 take 1 tablet by mouth once daily aspirin, enteric coated (ADULT ASPIRIN EC LOW STRENGTH) 81 mg EC tablet Indications: Type II or unspecified type diabetes mellitus without mention of complication, uncontrolled Take 1 tablet by mouth once daily. 30 tablet 11 11/03/2013 01/31/2022 Discontinued Comment on above: Take 1 tablet by jessica once daily. bismuth subsalicylate (9 sources) Bismuth Start: 03-23-2016 BISMATROL MAXIMUM STRENGTH 525 MG/15ML SUSP BISMUTH SUBSALICYLATE [id number] Karthikeyan Hall Start: 03-23-2016 BISMATROL MAXI MUM STRENGTH 525 MG/15ML SUSP BISMUTH SUBSALICYLATE [id number] Karthikeyan Hall Bupivacaine (1 source) Amide Local Anesthetic Start: 12-13-2021 End: 12-13-2021 bupivacaine HCl 2.5 mg injection (SENSORCAINE) 168 hr buprenorphine 0.005 mg/hr transdermal system (14 sources) Partial Opioid Agonist Start: 03-08-2019 End: 03-11-2019 Buprenorphine 1 EACH patch weekly Discontinued 1 NMA TD EVERY WEEK March 08, 2019 12:00am March 11, 2019 3:35pm Start: 03-08-2019 End: 03-11-2019 Buprenorphine Discontinued 1 EACH TD EVERY WEEK March 08, 2019 12:00am March 11, 2019 3:35pm clopidogrel 75 mg oral tablet (20 sources) [id number] Platelet Inhibitor Start: 03-23-2016 End: 03-11-2019 take 1 tablet by mouth once daily in the morning Clopidogrel 75 MG tablet Discontinued 75 mg PO DAILY July 25, 2016 1:00am March 11, 2019 3:26pm take in the morning Comment on above: Take 1 tablet by jessica th once daily. cyclobenzaprine hydrochloride 10 mg oral tablet (14 sources) Muscle Relaxant Start: 07-29-2021 End: 12-18-2022 take 1 tablet by mouth once daily Cyclobenzaprine 10 mg Tablet Discontinued 10 mg PO DAILY July 29, 2021 1:00am December 18, 2022 1:27pm Cyclosporine (Restasis) 0.05 % Dropperette (13 sources) Start: 07-29-2021 End: 01-30-2024 Cyclosporine (Restasis) 0.05 % Dropperette Discontinued 1 NMA EACH EYE Q12H July 29, 2021 1:00am January 30, 2024 11:18am Start: 07-29-2021 Cyclosporine ( Restasis) 0.05 % Dropperette Active 1 DRP EACH EYE Q12H July 29, 2021 12:00am Start: 07-29-2021 Cyclosporine ( Restasis) 0.05 % Dropperette Active 1 DRP EACH EYE Q12H July 29, 2021 1:00am docusate sodium 100 mg oral capsule (14 sources) Start: 01-27-2018 End: 06-19-2018 take 1 capsule by mouth twice daily Docusate Sodium (Dok) 100 MG capsule Discontinued 100 mg PO TWICE A DAY January 27, 2018 12:00am June 19, 2018 6:45pm doxycycline monohydrate 100 mg oral capsule (18 sources) Tetracycline-cla ss Drug Start: 07-22-2023 End: 10-15-2023 take 1 capsule by mouth twice daily Doxycycline Monohydrate 100 mg capsule Discontinued 100 mg PO TWICE A DAY October 01, 2023 1:35pm October 14, 2023 12:00am October 15, 2023 12:05am Dulaglutide (20 sources) GLP-1 Receptor Agonist Start: 12-18-2022 End: 11-27-2023 Dulaglutide (Trulicity) 3 mg/0.5 mL pen injector Discontinued 3 mg SC EVERY WEEK December 18, 2022 12:00am November 27, 2023 12:46pm Start: 12-18-2022 Dulaglutide (T rulicity) 3 mg/0.5 mL pen injector Active 3 MG SC EVERY WEEK December 17, 2022 11:00pm Start: 12-18-2022 Dulaglutide (T rulicity) 3 mg/0.5 mL pen injector Active 3 MG SC EVERY WEEK December 18, 2022 12:00am Start: 11-22-2020 End: 11-29-2020 inject 1 dose by subcutaneous injection every week Trulicity Pen 4.5 mg/0.5 mL subcutaneous solution Dose : 4.5 mg =, Subcutaneous, qWeek, Saturday/rotate injection sites, # 2 mL, 0 Refill(s) Start Date: 11/22/20 Stop Date: 11/29/20 Status: Ordered Quantity: 2.0 Unit: mL Repeat number: 1 Start: 11-22-2020 End: 11-29-2020 inject 1 dose by subcutaneous injection every week Trulicity Pen 4.5 mg/0.5 mL subcutaneous solution Dose : 4.5 mg =, Subcutaneous, qWeek, Saturday/rotate injection sites, # 2 mL, 0 Refill(s) Start Date: 11/22/20 Stop Date: 11/29/20 Status: Ordered Start: 07-25-2016 End: 12-18-2022 Dulaglutide 1.5 MG/0.5 ML pe n injector Discontinued 4.5 mg SQ FR July 25, 2016 1:00am December 18, 2022 1:29pm take every nikita morning Start: 07-25-2016 End: 12-18-2022 inject 4.5 mg by subcutaneous injection once Dulaglutide Discontinued 4.5 MG SQ FR July 25, 2016 1:00am December 18, 2022 1:29pm take every nikita morning Start: 03-23-2016 TRULICITY 1.5 MG/0.5ML SOPN DULAGLUTIDE [id number] Karthikeyan Hall Start: 03-23-2016 TRULICITY 1.5 MG/0.5ML SOPN DULAGLUTIDE [id number] Karthikeyan Hall dyclonine hydrochloride 2 mg oral lozenge (20 sources) Start: 12-18-2022 End: 01-30-2024 Dyclonine (Sucrets Sore Throat) 2 mg lozenge Discontinued 2 mg MUCOUS MEM Q3H as needed for sore throat December 18, 2022 12:00am January 30, 2024 11:17am Comment on above: Use as instructed. emollient combination no.60 (ATRAPRO HYDROGEL) gel (9 sources) emollient combination no.60 (ATRAPRO HYDROGEL) gel Apply to affected area. 0 Active Comment on above: Apply to affected ar ea. 0.85 ml exenatide 2.35 mg/ml auto-injector (1 source) GLP-1 Receptor Agonist Start: 11-27-2023 End: 01-30-2024 Exenatide Microspheres (Bydureon Bcise) 2 mg/0.85 mL auto-injector Discontinued 2 mg SC MO November 27, 2023 12:00am January 30, 2024 11:17am ferrous sulfate 325 mg oral tablet (14 sources) Start: 01-27-2018 End: 03-08-2019 take 1 tablet by mouth twice daily at mealtime Ferrous Sulfate 325 MG tablet Discontinued 325 mg PO TWICE DAILY WITH MEALS January 27, 2018 12:00am March 08, 2019 3:35pm formoterol (13 sources) beta2-Adrenergi c Agonist Start: 03-08-2019 End: 12-18-2022 take 20 ug by inhalation twice daily Formoterol Fumarate Discontinued 20 MCG INHALATION TWICE A DAY March 07, 2019 11:00pm December 18, 2022 12:43pm Start: 03-08-2019 End: 12-18-2022 take 20 ug by inhalation twice daily Formoterol Fumarate Discontinued 20 MCG INHALATION TWICE A DAY March 08, 2019 12:00am December 18, 2022 1:43pm Start: 03-08-2019 take 20 ug by inhala tion twice daily Formoterol Fumarate Active 20 MCG INHALATION TWICE A DAY March 08, 2019 12:00am Formoterol Fumarate 20 MCG/2 ML solution for nebulization (1 source) Start: 03-08-2019 End: 12-18-2022 take 20 ug by inhalation twice daily Formoterol Fumarate 20 MCG/2 ML solution for nebulization Discontinued 20 ug INHALATION TWICE A DAY March 08, 2019 12:00am December 18, 2022 1:43pm HYDROcodone bitartrate 30 mg 24 hr extended release oral tablet, abuse-deterrent (7 sources) Opioid Agonist Start: 02-14-2021 Hysingla ER 30 mg oral tablet, extended release Dose : 30 mg = 1 tab(s), Oral, q24h, tab(s), 0 Refill(s), 81.8 Start Date: 02/14/21 Status: Ordered Repeat number: 1 ibuprofen 400 mg oral tablet (20 sources) Nonsteroidal Anti-inflammatory Drug Start: 03-08-2019 End: 03-11-2019 take 1 tablet by mouth every eight hours as needed for pain Ibuprofen 400 MG tablet Discontinued 400 mg PO EVERY 8 HOURS NEEDED as needed for Pain March 08, 2019 12:00am March 11, 2019 3:23pm Start: 01-23-2018 End: 01-27-2018 take 1 tablet by mouth twice daily as needed for pain Ibuprofen 800 MG tablet Discontinued 800 mg PO TWICE A DAY as needed for Pain January 23, 2018 12:00am January 27, 2018 12:12pm lactase 3000 unt oral tablet (9 sources) Start: 03-23-2016 LACTAID 3000 U NIT TABS LACTASE [id number] Karthikeyan Hall LINACLOTIDE (9 sources) Guanylate Cyclase-C Agonist Start: 03-23-2016 LINZESS 145 MCG CAPS LINACLOTIDE [id number] Karthikeyan [place] Start: 03-23-2016 LINZESRubén 145 G CAPS LINACLOTIDE [id number] Karthikeyan Rubén Rafael LORazepam 1 mg oral tablet (20 sources) Benzodiazepine Start: 07-29-2021 End: 11-22-2022 take 0.5 mg by mouth every six hours Lorazepam 1 MG tablet Discontinued 0.5 mg PO EVERY 6 HOURS July 30, 2021 12:07am November 22, 2022 9:17am Start: 07-29-2021 End: 11-22-2022 take 0.5 mg by mouth every six hours Lorazepam Discontinued 0.5 MG PO EVERY 6 HOURS July 30, 2021 12:07am November 22, 2022 9:17am Start: 11-22-2020 Ativan 0.5 mg oral tablet Dose : 0.5 mg = 1 tab(s), Oral, TID, 0 Refill(s), 81.8 Start Date: 11/22/20 Status: Ordered Repeat number: 1 Start: 01-27-2018 End: 03-08-2019 take 1 tablet by mouth three times daily as needed for anxiety Lorazepam 1 MG tablet Discontinued 1 mg PO 3 TIMES DAILY NEEDED as needed for ANXIETY January 27, 2018 12:03pm March 08, 2019 3:35pm Start: 01-13-2018 End: 01-27-2018 take 1 tablet by mouth three times daily Lorazepam (Ativan) 2 MG tablet Discontinued 2 mg PO THREE TIMES A DAY January 13, 2018 12:00am January 27, 2018 12:09pm Start: 03-23-2016 End: 01-31-2022 take 1 tablet by mouth every six hours Lorazepam 1 MG tablet Discontinued 1 mg PO EVERY 6 HOURS March 11, 2019 3:35pm July 30, 2021 12:07am Comment on above: Take 1 tablet by jessica every 6 hours as needed. naproxen 500 mg oral tablet (14 sources) Nonsteroidal Anti-inflammatory Drug Start: 8 End: 8 take 1 tablet by mouth twice daily as needed Naproxen 500 MG tablet Discontinued 500 mg PO TWICE DAILY NEEDED January 21, 2018 12:00am January 27, 2018 12:12pm ondansetron 4 mg oral tablet (20 sources) Serotonin-3 Receptor Antagonist Start: 9 End: 3 take 1 tablet by mouth every six hours as needed for nausea Ondansetron Hcl (Zofran) 4 mg Tablet Discontinued 4 mg PO EVERY 6 HOURS as needed for NAUSEA July 29, 2021 1:00am December 18, 2022 1:44pm Comment on above: Take 4 mg by mouth e very 6 hours as needed. QUEtiapine 50 mg oral tablet (20 sources) Atypical Antipsychotic Start: 2 End: 3 take 1 tablet by mouth once daily Quetiapine (Seroquel) 50 mg Tablet Discontinued 50 mg PO DAILY July 29, 2021 1:00am December 18, 2022 1:46pm Start: 11-22-2020 End: 12-18-2022 take 1 tablet by mouth every twenty-four hours at bedtime Quetiapine (Seroquel Xr) 400 mg Tablet Extended Release 24 Hr Discontinued 400 mg PO AT BEDTIME July 29, 2021 1:00am December 18, 2022 1:45pm Start: 03-23-2016 SEROQUEL XR 30 0 MG [id number] QUETIAPINE FUMARATE [id number] Karthikeyan Hall Start: 03-23-2016 SEROQUEL XR 20 0 MG [id number] QUETIAPINE FUMARATE [id number] Karthikeyan Hall Start: 03-23-2016 SEROQUEL XR 20 0 MG [id number] QUETIAPINE FUMARATE [id number] Karthikeyan Hall Start: 03-23-2016 SEROQUEL XR 30 0 MG [id number] QUETIAPINE FUMARATE [id number] Karthikeyan Hall traMADol hydrochloride 50 mg oral tablet (14 sources) Opioid Agonist Start: 01-23-2018 End: 01-27-2018 take 1 tablet by mouth every six hours as needed for pain Tramadol 50 MG tablet Discontinued 50 mg PO EVERY 6 HOURS NEEDED as needed for Pain January 23, 2018 12:00am January 27, 2018 12:12pm traZODone hydrochloride 150 mg oral tablet (9 sources) Serotonin Reuptake Inhibitor Start: 03-23-2016 TRAZODONE HCL 150 MG TABS TRAZODONE HCL [id number] Karthikeyan Hall vortioxetine 20 mg oral tablet (9 sources) Start: 03-23-2016 TRINTELLIX 20 MG TABS VORTIOXETINE HBR [id number] Karthikeyan Hall zolpidem tartrate 10 mg oral tablet (20 sources) gamma-Aminobutyr ic Acid-ergic Agonist Start: 11-22-2020 End: 12-18-2022 take 1 tablet by mouth at bedtime as needed for sleep Zolpidem (Ambien) 10 mg Tablet Discontinued 10 mg PO AT BEDTIME as needed for Sleep July 29, 2021 1:00am December 18, 2022 1:46pm Problems Active Problems Problem Classification Problem Date Documented Date Episodic/Chronic Abdominal pain (6 sources) Right flank pain; Translations: [Unspecified abdominal pain] Onset: 5 11-24-2023 Episodic Acute cerebrovascular disease (14 sources) Cerebrovascular accident; Translations: [Cerebral infarction, unspecified] 03-08-2019 Chronic Anxiety disorders (14 sources) Anxiety; Translations: [Anxiety disorder, unspecified] 06-19-2018 Chronic Asthma (20 sources) Unspecified asthma, uncomplicated; Translations: [Asthma, unspecified type, unspecified] 04-13-2005 Chronic Calculus of urinary tract (6 sources) Personal history of urinary calculi; Translations: [History of calculus of kidney] Onset: 7 09-23-2023 Episodic Chronic obstructive pulmonary disease and bronchiectasis (15 sources) Chronic obstructive lung disease; Translations: [Chronic obstructive pulmonary disease, unspecified] Onset: 4 06-19-2018 Chronic Chronic ulcer of skin (20 sources) Chronic ulcer of ankle; Translations: [Non-pressure chronic ulcer of right ankle with fat layer exposed] Onset: 4 11-22-2022 Chronic Comment on above: Venous duplex-Interp retation SummaryDeep veins of the lower extremities are bilaterally patent and compressible segmentally. There is noevidence of deep vein thrombosis on either side. Valvular competence appears intact within theproximal deep venous systems bilaterally. The great saphenous veins appear bilaterally patent andcompressible segmentally. Sapheno-femoral junctions are bilaterally competent . The right greatsaphenous vein appears competent above the knee. The right great saphenous vein appears incompetentbelow the knee. The left great saphenous vein appears competent above the knee. The left greatsaphenous vein appears incompetent below the knee. Small saphenous veins are patent and competentbilaterally.PVR-Interpretation SummaryTriphasic Doppler waveforms are noted at ankle level bilaterally. Pulse-volume recordings appearsatisfactory at all levels bilaterally. Resting ankle-brachial indices are normal bilaterally. Theright digital-brachial index is mildly diminished. The left digital-brachial index is normal. Arterial flow appears normal at ankle level bilaterally, as well as at digital level on the left.There is evidence of mild arterial occlusive disease at digital level on the right. Diabetes mellitus with complications (20 sources) Type 2 diabetes mellitus; Translations: [Type II or unspecified type diabetes mellitus without mention of complication, uncontrolled] Onset: 7 04-21-2007 Chronic Diabetes mellitus without complication (20 sources) Diabetes mellitus; Translations: [Type 2 diabetes mellitus without complications] 11-22-2022 Chronic Disorders of lipid metabolism (20 sources) Hyperlipidemia; Translations: [Hyperlipidemia, unspecified] Onset: 6 03-26-2006 Chronic Diverticulosis and diverticulitis (20 sources) Diverticulosis of colon; Translations: [Diverticulosis of large intestine without perforation or abscess without bleeding] 04-13-2005 Chronic E Codes: Fall (14 sources) Fall on same level from slipping, tripping or stumbling ; Translations: [Fall on same level from slipping, tripping and stumbling without subsequent striking against object, initial encounter] 03-09-2019 Episodic Esophageal disorders (20 sources) Gastroesophageal reflux disease; Translations: [Gastro-esophageal reflux disease without esophagitis] Onset: 7 04-21-2007 Chronic Essential hypertension (20 sources) Essential hypertension; Translations: [Essential (primary) hypertension] Onset: 8 07-29-2007 Chronic Fever of unknown origin (1 source) Fever; Translations: [Fever, unspecified] Onset: 2 Episodic Fracture of lower limb (13 sources) Other fracture of upper and lower end of left fibula, initial encounter for closed fracture; Translations: [Unspecified fracture of ankle, closed] 12-18-2022 Episodic Fracture of neck of femur (hip) (14 sources) Closed intertrochanteric fracture; Translations: [Displaced intertrochanteric fracture of left femur, initial encounter for closed fracture] 03-09-2019 Episodic Comment on above: minimally displaced and impacted intertrochanteric fracture with sub troch extension Genitourinary symptoms and ill-defined conditions (5 sources) Proteinuria; Translations: [Proteinuria, unspecified] Onset: 7 Resolved: 8 01-23-2024 Episodic Headache; including migraine (1 source) Headache; Translations: [Headache] 03-30-2024 Episodic Infective arthritis and osteomyelitis (except that caused by tuberculosis or sexually transmitted disease) (7 sources) Osteomyelitis of right ankle; Translations: [Osteomyelitis, unspecified] Onset: 4 10-17-2023 Chronic Mood disorders (14 sources) Bipolar disorder; Translations: [Bipolar disorder, unspecified] 03-08-2019 Chronic Nutritional deficiencies (1 source) Vitamin D deficiency; Translations: [Vitamin D deficiency, unspecified] Chronic Nutritional deficiencies (14 sources) Iron deficiency; Translations: [Iron deficiency] 06-19-2018 Episodic Osteoarthritis (1 source) Degenerative joint disease involving multiple joints; Translations: [Polyosteoarthritis, unspecified] Chronic Osteoporosis (20 sources) Osteoporosis; Translations: [Other osteoporosis without current pathological fracture] Onset: 2 09-12-2021 Chronic Other aftercare (1 source) Drug therapy finding; Translations: [supervisor intermediates (current) use of anticoagulants] 09-27-2024 Episodic Other aftercare (1 source) Encounter for follow-up examination after completed treatment for conditions other than malignant neoplasm; Translations: [Encounter for follow-up examination after completed treatment for conditions other than malignant neoplasm] Onset: 5 Episodic Other circulatory disease (14 sources) History of cerebrovascular accident; Translations: [Personal history of transient ischemic attack (TIA), and cerebral infarction without residual deficits] 06-19-2018 Episodic Other connective tissue disease (1 source) Myofascial pain; Translations: [Myalgia, other site] Episodic Other connective tissue disease (14 sources) Pain in lower limb; Translations: [Pain in right leg] 08-07-2021 Episodic Other connective tissue disease (1 source) Pain in bilateral legs; Translations: [Pain in right leg] Episodic Other connective tissue disease (2 sources) Chronic pain of right foot; Translations: [Pain in right toe(s)] 11-21-2023 Episodic Other connective tissue disease (2 sources) Chronic pain of left foot; Translations: [Pain in left toe(s)] 11-21-2023 Episodic Other connective tissue disease (1 source) Pain in left toe(s); Translations: [Pain in limb] 11-21-2023 Episodic Other connective tissue disease (1 source) Pain in right toe(s); Translations: [Pain in limb] 11-21-2023 Episodic Other connective tissue disease (1 source) Pain of right lower leg; Translations: [Pain in right lower leg] 12-19-2023 Episodic Other diseases of bladder and urethra (20 sources) Disorder of bladder; Translations: [Other specified disorders of bladder] Onset: 0 01-11-2010 Chronic Other diseases of kidney and ureters (3 sources) Renal mass; Translations: [Other specified disorders of kidney and ureter] 11-24-2023 Chronic Other injuries and conditions due to external causes (1 source) Traumatic AND/OR non-traumatic injury; Translations: [Other injury of unspecified body region, initial encounter] Onset: Episodic Other injuries and conditions due to external causes (2 sources) Delayed healing of wound; Translations: [Other injury of unspecified body region, subsequent encounter] 11-14-2023 Episodic Other nervous system disorders (14 sources) Chronic pain; Translations: [Other chronic pain] 06-19-2018 Chronic Other nervous system disorders (1 source) Skin sensation disturbance; Translations: [Unspecified disturbances of skin sensation] Episodic Other non-traumatic joint disorders (14 sources) Hip pain; Translations: [Pain in left hip] 03-08-2019 Episodic Other skin disorders (2 sources) Dystrophia unguium; Translations: [Nail dystrophy] 11-21-2023 Episodic Other skin disorders (1 source) Nail dystrophy; Translations: [Other specified diseases of nail] 11-21-2023 Episodic Other upper respiratory disease (20 sources) Rhinitis; Translations: [Chronic rhinitis] Onset: 2 03-10-2012 Chronic Residual codes; unclassified (1 source) Presence of other specified functional implants; Translations: [Implantable intrathecal infusion pump present] Chronic Residual codes; unclassified (13 sources) Tobacco user; Translations: [Tobacco use] 11-22-2022 Episodic Residual codes; unclassified (2 sources) Bilateral lower limb edema; Translations: [Localized edema] 11-24-2023 Episodic Residual codes; unclassified (1 source) Other specified postprocedural states; Translations: [Other specified postprocedural states] Onset: 5 Episodic Schizophrenia and other psychotic disorders (20 sources) Schizophrenia; Translations: [Schizophrenia, unspecified] Onset: 6 03-26-2006 Chronic Spondylosis; intervertebral disc disorders; other back problems (12 sources) Lumbosacral spondylosis without myelopathy; Translations: [Spondylosis without myelopathy or radiculopathy, lumbosacral region] Onset: 5 Resolved: 3 02-14-2021 Chronic Substance-related disorders (1 source) Nicotine dependence, cigarettes, uncomplicated; Translations: [Nicotine dependence, cigarettes, uncomplicated] Onset: 5 Chronic Superficial injury; contusion (14 sources) Contusion of hip; Translations: [Contusion of right hip, initial encounter] 08-07-2021 Episodic Unclassified (4 sources) Aftercare ; Translations: [Encounter for other orthopedic aftercare] Onset: 7 12-19-2016 Past or Other Problems Problem Classification Problem Date Documented Da te Episodic/Chronic Fracture of upper limb (9 sources) Nondisplaced fracture of sternal end of right clavicle, initial encounter for closed fracture; Translations: [Nondisplaced fracture of sternal end of right clavicle, initial encounter for closed fracture] Onset: 03-23-2016 04-01-2016 Episodic Gastritis and duodenitis (4 sources) Acute gastritis; Translations: [Acute gastritis without bleeding] Onset: 12-23-2007 Resolved: 03-10-2012 03-10-2012 Episodic Genitourinary symptoms and ill-defined conditions (4 sources) Urge incontinence of urine; Translations: [Urge incontinence] Onset: 06-16-2007 Resolved: 06-17-2013 06-17-2013 Chronic Nonspecific chest pain (9 sources) Chest pain; Translations: [Chest pain, unspecified] Onset: 12-01-2007 Resolved: 03-10-2012 Episodic Other aftercare (8 sources) Strain of muscle(s) and tendon(s) of the rotator cuff of right shoulder, subsequent encounter; Translations: [Strain of muscle(s) and tendon(s) of the rotator cuff of right shoulder, subsequent encounter] Onset: 07-27-2016 08-01-2016 Episodic Other bone disease and musculoskeletal deformities (9 sources) Clavicle pain; Translations: [Other specified disorders of bone, other site] Onset: 03-23-2016 03-23-2016 Episodic Other connective tissue disease (1 source) Pain in right lower leg; Translations: [Pain in right lower leg] Onset: 03-15-2024 Episodic Other fractures (9 sources) Nondisplaced fracture of sternal end of right clavicle, subsequent encounter for fracture with routine healing; Translations: [Nondisplaced fracture of sternal end of right clavicle, subsequent encounter for fracture with routine healing] Onset: 05-03-2016 05-13-2016 Episodic Other injuries and conditions due to external causes (2 sources) Other injury of unspecified body region, subsequent encounter; Translations: [Open wound(s) (multiple) of unspecified site(s), complicated] Onset: 03-15-2024 11-21-2023 Episodic Other non-traumatic joint disorders (20 sources) Impingement syndrome of shoulder region; Translations: [Shoulder stiff] Onset: 05-03-2016 09-17-2016 Episodic Other non-traumatic joint disorders (1 source) Shoulder stiff; Translations: [Stiffness of right shoulder, not elsewhere classified] Onset: 05-03-2016 05-13-2016 Episodic Other non-traumatic joint disorders (1 source) Shoulder joint pain; Translations: [Pain in right shoulder] Onset: 05-03-2016 05-13-2016 Episodic Other nutritional; endocrine; and metabolic disorders (4 sources) Obesity; Translations: [Obesity, unspecified] Onset: 03-26-2006 Resolved: 06-17-2013 06-17-2013 Chronic Other screening for suspected conditions (not mental disorders or infectious disease) (4 sources) Thyroid function tests abnormal; Translations: [Abnormal results of thyroid function studies] Onset: 07-09-2007 Resolved: 03-10-2012 03-10-2012 Episodic Residual codes; unclassified (20 sources) Tobacco use; Translations: [Tobacco use disorder] Onset: 03-15-2024 12-12-2022 Episodic Screening and history of mental health and substance abuse codes (20 sources) Tobacco use and exposure - finding; Translations: [Personal history of nicotine dependence] Onset: 02-04-2008 Resolved: 03-10-2012 07-10-2021 Episodic Spondylosis; intervertebral disc disorders; other back problems (20 sources) Thoracic and lumbosacral neuritis; Translations: [Thoracic or lumbosacral neuritis or radiculitis, unspecified] Onset: 04-01-2006 04-12-2008 Episodic Sprains and strains (10 sources) Strain of muscle(s) and tendon(s) of the rotator cuff of right shoulder, initial encounter; Translations: [Strain of muscle(s) and tendon(s) of the rotator cuff of right shoulder, subsequent encounter] Onset: 05-03-2016 05-13-2016 Episodic Varicose veins of lower extremity (1 source) Varicose veins of bilateral lower extremities with pain; Translations: [Varicose veins of bilateral lower extremities with pain] Onset: 03-15-2024 Episodic Results Test Name Value Interpretation Reference Range Facility Gastroenterology Visit Repor ton 11-20-2024 Gastroenterology Visit Report [facility] [address] [place] [address] OFFICE VISIT Date of Service: 11/20/24 MR#: [id number] Acct: [id number] Name: JULIANA MERIDA YANELI Rep #: [id number] : 1960 Provider: KALEIGH sim Age/Sex: 64/F Location: [facility] [place].[facility] Status: Signed Intake Vital Signs 09/27/24 01:36 Height 5 ft 3 in Intake Visit Reasons: ABD Pain Allergies apricot Allergy (Unknown, Verified 09/12/24 22:12) PT UNSURE OF REACTION BCG (Bacillus Calmette-Zohra) vacc Allergy (Unknown, Verified 04/08/24 00:53) Other bee venom protein (honey bee) (bee sting) Allergy (Unknown, Verified 09/12/24 22:12) Other corn Allergy (Unknown, Verified 09/12/24 22:12) Other Milk Containing Products (Dairy) Allergy (Unknown, Verified 09/12/24 22:12) Other peas Allergy (Unknown, Verified 09/12/24 22:12) Other tomato Allergy (Unknown, Verified 09/12/24 22:12) Other Iodinated Contrast Media (Iodinated Contrast Media - IV Dye) Allergy (Verified 09/12/24 22:12) Hives amoxicillin trihydrate (From Augmentin) Adverse Reaction (Verified 09/12/24 22:12) Itching hydrocodone (From Vicodin) Adverse Reaction (Verified 09/12/24 22:12) Unknown potassium clavulanate (From Augmentin) Adverse Reaction (Verified 09/12/24 22:12) Itching prednisone Adverse Reaction (Verified 09/12/24 22:12) Unknown shellfish derived Adverse Reaction (Verified 09/12/24 22:12) Itching Medications ???Medication ???Instructions ???Recorded ???Confirmed ???Type ondansetron HCl 4 mg tablet 4 mg PO Q6H PRN PRN Nausea 9 11/20/24 History prazosin 1 mg capsule 1 mg PO QHS nightmares 03/08/19 History albuterol sulfate 2.5 mg/3 mL 2.5 mg inhalation Q4H PRN SOB 07/1511/20/24 History (0.083 %) solution for nebulization apixaban 5 mg tablet (Eliquis) 5 mg PO BID 07/29/21 11/20/24 Hist ory lurasidone 80 mg tablet (Latuda) 80 mg PO DAILY 07/29/21 11/20/24 H istory naloxegol 25 mg tablet (Movantik) 25 mg PO DAILY 07/29/21 11/20/24 History pantoprazole 40 mg tablet,delayed 40 mg PO DAILY 07/29/21 11/20/24 History release acetaminophen 325 mg tablet 650 mg PO Q6H PRN PRN fever or jimy n 12/18/22 11/20/24 History aluminum-mag hydroxide-simethicone 5 ml PO .Q3H PRN PRN indigestion 12/18/22 11/20/24 History 400 mg-400 mg-40 mg/5 mL oral susp (Maalox Maximum Strength) benzonatate 100 mg capsule 100 mg PO Q8H PRN cough 12/18/22 0 11/20/24 History bisacodyl 5 mg tablet,delayed 5 mg PO Q8H PRN PRN constipation 0 12/18/22 11/20/24 History release (Dulcolax (bisacodyl)) cholecalciferol (vitamin D3) 125 125 mcg PO DAILY 12/18/22 11/20/24 History mcg (5,000 unit) capsule diclofenac sodium 1 % topical gel 2 g topical Q8H PRN PRN pain 06/0 01/0411/20/24 History epinephrine 0.3 mg/0.3 mL 0.3 mg IM Q5-15M PRN anaphylaxis 0 12/18/22 11/20/24 History injection, auto-injector (EpiPen) flash glucose sensor (FreeStyle 12/18/22 11/20/24 History Elisa 2 Sensor kit) fluticasone fur. 200 mcg-umeclid 1 inh inhalation DAILY 12/18/22 History 62.5 mcg-vilant 25 mcg inhalat.powder (Trelegy Ellipta) guaifenesin 100 mg/5 mL oral liquid 200 mg PO Q4H PRN cough 2 3 11/20/24 History ipratropium 0.5 mg-albuterol 3 mg 3 ml inhalation BID PRN shortness 12/18/22 11/20/24 History (2.5 mg base)/3 mL nebulization of breath soln ipratropium 20 mcg-albuterol 100 1 puff inhalation Q6H PRN 12/18/22 11/20/24 History mcg/actuation mist for inhalation shortness of breath or wheezing (Combivent Respimat) ipratropium bromide 21 mcg (0.03 2 spray intranasal BID 12/18/22 History %) nasal spray lisinopril 2.5 mg tablet 2.5 mg PO DAILY 12/18/22 11/20/24 History loratadine 10 mg tablet (Claritin) 10 mg PO DAILY 12/18/22 11/20/24 History montelukast 10 mg tablet 10 mg PO DAILY 12/18/22 11/20/24 H istory olanzapine 10 mg tablet (Zyprexa) 10 mg PO QPM 12/18/22 11/20/24 Hi story polyethylene glycol 3350 17 17 g PO DAILY PRN constipation 01/0411/20/24 History gram/dose oral powder (Miralax) duloxetine 60 mg capsule,delayed 60 mg PO BID 01/16/23 11/20/24 His tory release (Cymbalta) pregabalin 100 mg capsule 100 mg PO BID 01/16/23 11/20/24 Hi story Lactobacillus rhamnosus GG 10 1 cap PO BID 11/27/23 11/20/24 His tory billion cell capsule (Culturelle) insulin lispro 100 unit/mL 1 sliding scale dose subcut TID 11/20/24 History subcutaneous pen (Humalog KwikPen (U-100) Insulin) loperamide 2 mg capsule 4 mg PO BID PRN loose stool 11/20/24 History (Anti-Diarrheal (loperamide)) carboxymethylcellulose sodium 0.5 1 drp EACH EYE BID 01/30/2411/20 History % eye drops (Refresh Tears) cyclosporine 0.05 % eye drops in a 1 drp EACH EYE Q12H 01/12 (more content not included)... Normal [facility] Abdomen/Pelvis without Conto n 09-27-2024 Abdomen/Pelvis without Cont [facility] Imaging Services [address] [place] [address] Abdomen/Pelvis without Cont MR#: [id number] Acct: [id number] Name: JULIANA MERIDA Rep #: [id number] : 1960 F 63 From: Jaleel Loaiza MD PCP: Mariah Guevaar MD Status: REG ER Study: Abdomen/Pelvis without Cont Date of Exam: 09/12 01/06 Exam# [id number] Ordering Dr: Gregorio Cochran DO PROCEDURE: ABDOMEN/PELVIS WITHOUT CONT 09/27/2024 REASON FOR EXAM: KIDNEY STONE TECHNIQUE: Abdomen and pelvis CT without intravenous contrast. Coronal and Sagittal reconstruction series were provided. One or more dose reduction techniques were used (e.g., Automated exposure control, adjustment of the mA and/or kV according to patient size, use of iterative reconstruction technique). COMPARISON: 09/12/2024. FINDINGS: Noncontrast technique limits evaluation of the abdominal and pelvic viscera. There is now nnch-osullaq-vkeh-right mild basilar patchy ill-defined ground-glass opacities of the lower lobes which may be inflammatory, infectious or atelectasis, clinically correlate. Cylindrical bronchiectasis at the bases. Scar at the lingula again noted. Right coronary calcification again noted. Hepatic steatosis with geographic areas of more focal fat again seen within the liver. Status post cholecystectomy. The adrenal glands, pancreas and spleen appear within limits on noncontrast imaging. Motion artifact upper abdomen limits the evaluation. A couple of nonobstructing right intrarenal stones are again noted. No hydronephrosis or evidence of ureteral or bladder stone identified. 2.3 cm mildly high density focus partially exophytic at the right kidney is again seen axial 108 which may represent hemorrhagic or proteinaceous cyst with solid lesion not excluded. May follow-up with nonemergent renal ultrasound as warranted. No bowel dilation or free air. Status post appendectomy. [place] artifact from spinal stimulator device. Aortoiliac atherosclerotic calcification. No abdominal aortic aneurysm. The bladder appears within limits. No free fluid seen. Status post hysterectomy. The ovaries appear within limits on noncontrast imaging. [place] artifact from left femoral gamma nail. Small fat containing left inguinal hernia without stranding again noted. CT/Abdomen/Pelvis without Cont IMPRESSION: There is now lizh-pprliga-mdri-right mild basilar patchy ill-defined ground-glass opacities of the lower lobes which may be inflammatory, infectious or atelectasis, clinically correlate. A couple of nonobstructing right intrarenal stones are again noted. No hydronephrosis or evidence of ureteral or bladder stone identified. 2.3 cm mildly high density focus partially exophytic at the right kidney is again seen axial 108 which may represent hemorrhagic or proteinaceous cyst with solid lesion not excluded. May follow-up with nonemergent renal ultrasound as warranted. Hepatic steatosis with geographic areas of more focal fat again seen within the liver. Status post cholecystectomy. Reading Location: [id number] CC: Mariah Guevara MD; Dr. Gregorio Cochran DO Camouflage Assembler: Signed Normal [facility] Absolute neutrophil countOrd ered By: Gregorio Cochran on 09-27-2024 Neutrophils (Bld) [#/Vol] 6.8 10*3/uL 2.0-7.7 [facility] Anion gap in Serum or Plasma Ordered By: Gregorio Cochran on 09-27-2024 Anion gap [Moles/Vol] 10 mmol/L - [facility] BUN/creatinine ratioOrdered By: Gregorio Cochran on 09-27-2024 Urea nitrogen/Creatinine [Mass ratio] 12.7 mg/mg - [facility] Basic Metabolic Profile (BMP )on 09-27-2024 BUN/CRE 12.7 RATIO Normal - [facility] Comment on above: Performed By: #### L 500.2500, L100.0100 #### [facility] [address] [place], [address] Calcium [Mass/Vol] 9.5 mg/dL Normal 7.6-11.0 [facility] Comment on above: Performed By: #### L 500.2500, L100.0100 #### [facility] [address] [place], [address] Chloride [Moles/Vol] 99 mmol/L Normal 98-108 [facility] Comment on above: Performed By: #### L 500.2500, L100.0100 #### [facility] [address] [place], [address] CO2 [Moles/Vol] 27.1 mmol/L Normal 21.0-32.0 [facility] Comment on above: Performed By: #### L 500.2500, L100.0100 #### [facility] [address] [place], [address] Creatinine [Mass/Vol] 1.37 mg/dL High 0.70-1.20 [facility] Comment on above: Performed By: #### L 500.2500, L100.0100 #### [facility] [address] [place], [address] GAP 10 Normal - [facility] Comment on above: Performed By: #### L 500.2500, L100.0100 #### [facility] [address] [place], [address] GFR/1.73 sq M.predicted among non-blacks MDRD (S/P/Bld) [Vol rate/Area] 44 mL/min/{1.73_m2} Low >60 [facility] Comment on above: Result Comment: mL/m in/1.73m2 CKD-EPI Creatinine Equation (2020) Performed By: #### L 500.2500, L100.0100 #### [facility] [address] [place], [address] Glucose [Mass/Vol] 254 mg/dL High 70-99 [facility] Comment on above: Performed By: #### L 500.2500, L100.0100 #### [facility] [address] [place], [address] Potassium [Moles/Vol] 4.0 mmol/L Normal 3.3-5.1 [facility] Comment on above: Performed By: #### L 500.2500, L100.0100 #### [facility] [address] [place], [address] Sodium [Moles/Vol] 136 mmol/L Normal 133-145 [facility] Comment on above: Performed By: #### L 500.2500, L100.0100 #### [facility] [address] [place], [address] Urea nitrogen [Mass/Vol] 17 mg/dL Normal 4-19 [facility] Comment on above: Performed By: #### L 500.2500, L100.0100 #### [facility] [address] [place], [address] Basophil percentageOrdered B y: Gregorio Cochran on 09-27-2024 Basophils/100 WBC (Bld) 0.5 % 0-1 [facility] Bilirubin Test strip Ql (U)O rdered By: Gregorio Cochran on 09-27-2024 Bilirubin Ql (U) Negative Negative [facility] CBC W/Diff, Automatedon 09-12 Absolute Lymph 2.73 X10 3/uL Normal 0.83-4.51 [facility] Comment on above: Performed By: #### L 500.2500, L100.0100 #### [facility] [address] [place], [address] Absolute Neut 6.8 X10 3/uL Normal 2.0-7.7 [facility] Comment on above: Performed By: #### L 500.2500, L100.0100 #### [facility] [address] [place], [address] Basophils/100 WBC (Bld) 0.5 % Normal 0-1 [facility] Comment on above: Performed By: #### L 500.2500, L100.0100 #### [facility] [address] [place], [address] Eosinophils/100 WBC (Bld) 0.8 % Normal 0-5 [facility] Comment on above: Performed By: #### L 500.2500, L100.0100 #### [facility] [address] [place], [address] Erythrocyte distribution width (RBC) [Ratio] 13.6 % Normal 11.6-14.6 [facility] Comment on above: Performed By: #### L 500.2500, L100.0100 #### [facility] [address] [place], [address] Hematocrit (Bld) [Volume fraction] 43.9 % Normal 37-47 [facility] Comment on above: Performed By: #### L 500.2500, L100.0100 #### [facility] [address] [place], [address] Hemoglobin (Bld) [Mass/Vol] 14.2 g/dL Normal 12.0-15.0 [facility] Comment on above: Performed By: #### L 500.2500, L100.0100 #### [facility] [address] [place], [address] IG% 0.500 Normal 0.0-0.9 [facility] Comment on above: Result Comment: IG% - Immature Granulocytes (promyelocytes, myelocytes and metamyelocytes) > 1% indicates that a LEFT SHIFT is Present. Performed By: #### L 500.2500, L100.0100 #### [facility] [address] [place], [address] Lymphocytes/100 WBC (Bld) 25.9 % Normal 19-41 [facility] Comment on above: Performed By: #### L 500.2500, L100.0100 #### [facility] [address] [place], [address] MCH (RBC) [Entitic mass] 29.3 pg Normal 27.0-32.0 [facility] Comment on above: Performed By: #### L 500.2500, L100.0100 #### [facility] [address] [place], [address] MCHC (RBC) [Mass/Vol] 32.3 g/dL Normal 32-36 [facility] Comment on above: Performed By: #### L 500.2500, L100.0100 #### [facility] [address] [place], [address] MCV (RBC) [Entitic vol] 90.7 fL Normal 81-99 [facility] Comment on above: Performed By: #### L 500.2500, L100.0100 #### [facility] [address] [place], [address] Monocytes/100 WBC (Bld) 7.7 % Normal 0-10 [facility] Comment on above: Performed By: #### L 500.2500, L100.0100 #### [facility] [address] [place], [address] Neutrophils/100 WBC (Bld) 64.6 % Normal 47-70 [facility] Comment on above: Performed By: #### L 500.2500, L100.0100 #### [facility] [address] [place], [address] Nucleated RBC (Bld) [#/Vol] 0 10*3/uL Normal 0-5 [facility] Comment on above: Performed By: #### L 500.2500, L100.0100 #### [facility] [address] [place], [address] Platelet mean volume (Bld) [Entitic vol] 10.1 fL Normal 6.2-12.0 [facility] Comment on above: Performed By: #### L 500.2500, L100.0100 #### [facility] [address] [place], [address] Platelets (Bld) [#/Vol] 214 10*3/uL Normal 150-450 [facility] Comment on above: Performed By: #### L 500.2500, L100.0100 #### [facility] [address] [place], [address] RBC (Bld) [#/Vol] 4.84 10*6/uL Normal 4.2-5.4 [facility] Comment on above: Performed By: #### L 500.2500, L100.0100 #### [facility] [address] [place], [address] RDW SD 44.8 fl High 35.1-43.9 [facility] Comment on above: Performed By: #### L 500.2500, L100.0100 #### [facility] [address] [place], [address] WBC (Bld) [#/Vol] 10.5 10*3/uL Normal 4.4-11.0 [facility] Comment on above: Performed By: #### L 500.2500, L100.0100 #### [facility] [address] [place], [address] Carbon dioxide, total [Moles /volume] in Central venous bloodOrdered By: Gregorio Cochran on 09-27-2024 CO2 [Moles/Vol] 27.1 mmol/L 21.0-32.0 [facility] Chloride assayOrdered By: Miguel Cochran on 09-27-2024 Chloride [Moles/Vol] 99 mmol/L 98-108 [facility] Emergency Department Summary on 09-27-2024 Emergency Department Summary [facility] Medical Records Department [address] [place] [address] Emergency Department Summary 09/27/24 MR#: [id number] Acct: [id number] Name: JULIANA MERIDA YANELI Rep #: [id number] : 1960 63 From: Gregorio Cochran DO PCP: Mariah Guevara MD Status:DEP ER Location: ED HPI History of Present Illness Chief Complaint: Flank Pain Informant: patient and EMS Narrative Narrative: 63-year-old female from [facility] at [facility] presenting to the emergency room via EMS with the chief complaint of left flank pain. Patient states she has had prior kidney stones. She has a history of stroke and is on Eliquis. Also noted history of COPD schizophrenia diabetes. The patient states that the pain began yesterday morning has been waxing and waning throughout the day in the evening. She notes some associated nausea but no vomiting. She did eat dinner. She denies any dysuria frequency or hematuria [facility] Medical History Lives in correction Hx of fracture of hip Wears glasses Wears dentures Post-menopausal Depression Alcohol use Substance abuse Open wound Uses wheelchair Arthritis High cholesterol Restless legs Back pain Smoker Asthma Shortness of breath on exertion History of edema Tobacco abuse Insulin dependent diabetes mellitus 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 GERD (gastroesophageal reflux disease) Anxiety Schizophrenia Hyperlipidemia Insomnia Neuralgia and neuritis Spondylosis Mild asthma Cerebral vascular disease Hypertension Home Medications ???Medication ???Instructions ???Recorded ???Last Taken ???Type amlodipine 5 mg tablet 5 mg PO DAILY blood pressure 03/0803/08/19 History ondansetron HCl 4 mg tablet 4 mg PO Q6H PRN PRN Nausea 9 Unknown History prazosin 1 mg capsule 1 mg PO QHS nightmares 03/08/19 20:00 History albuterol sulfate 2.5 mg/3 mL 2.5 mg inhalation Q4H PRN SOB 07/15 12/03 Unknown History (0.083 %) solution for nebulization apixaban 5 mg tablet (Eliquis) 5 mg PO BID 07/29/21 02/06/24 Hist ory lurasidone 80 mg tablet (Latuda) 80 mg PO DAILY 07/29/21 Unknown Hi story naloxegol 25 mg tablet (Movantik) 25 mg PO DAILY 07/29/21 Unknown H istory pantoprazole 40 mg tablet,delayed 40 mg PO DAILY 07/29/21 Unknown H istory release acetaminophen 325 mg tablet 650 mg PO Q6H PRN PRN fever or jimy n 12/18/22 Unknown History aluminum-mag hydroxide-simethicone 5 ml PO .Q3H PRN PRN indigestion 12/18/22 Unknown History 400 mg-400 mg-40 mg/5 mL oral susp (Maalox Maximum Strength) atenolol 25 mg tablet 25 mg PO DAILY 12/18/22 Unknown Hi story atorvastatin 80 mg tablet 40 mg PO QHS cholesterol 12/18/22 Unknown History baclofen 5 mg tablet 5 mg PO TID 12/18/22 Unknown Histo ry benzonatate 100 mg capsule 100 mg PO Q8H PRN cough 12/18/22 U nknown History bisacodyl 10 mg rectal suppository 10 mg GA .Q24 PRN PRN constipati on 12/18/22 Unknown History (Dulcolax (bisacodyl)) bisacodyl 5 mg tablet,delayed 5 mg PO Q8H PRN PRN constipation 0 12/18/22 Unknown History release (Dulcolax (bisacodyl)) cholecalciferol (vitamin D3) 125 125 mcg PO DAILY 12/18/22 Unknown History mcg (5,000 unit) capsule diclofenac sodium 1 % topical gel 2 g topical Q8H PRN PRN pain 06/0 01/04 Unknown History epinephrine 0.3 mg/0.3 mL 0.3 mg IM Q5-15M PRN anaphylaxis 0 12/18/22 Unknown History injection, auto-injector (EpiPen) flash glucose sensor (FreeStyle 12/18/22 Unknown History Elisa 2 Sensor kit) fluticasone fur. 200 mcg-umeclid 1 inh inhalation DAILY 12/18/22 Un known History 62.5 mcg-vilant 25 mcg inhalat.powder (Trelegy Ellipta) fluticasone propionate 50 2 spray intranasal DAILY 12/18/22 Unknown History mcg/actuation nasal spray,suspension (Flonase Allergy Relief) guaifenesin 100 mg/5 mL oral liquid 200 mg PO Q4H PRN cough 3 Unknown History hydroxyzine pamoate 25 mg capsule 25 mg PO QHS 12/18/22 Unknown His tory (Vistaril) insulin glargine U-300 conc 300 100 unit subcut BID 12/18/22 Unkno wn History unit/mL (1.5 mL) subcutaneous pen (Toujeo SoloStar U-300 Insulin) ipratropium 0.5 mg-albuterol 3 mg 3 ml inhalation BID PRN shortness 12/18/22 Unknown History (2.5 mg base)/3 mL nebulization of breath soln ipratropium 20 mcg-albuterol 100 1 puff inhalation Q6H PRN 12/18/22 Unknown History mcg/actuation mist for inhalation shortness of breath or wheezing (Combivent Respimat) ipratropium bromide 21 mcg (0.03 2 spray intranasal BID 12/18/22 Un known History %) nasal spray lisinopril 2.5 mg tablet 2.5 mg PO DAILY 12/18/22 Unknown H istory loratadine 10 mg tablet (Claritin) 10 mg PO DAILY 12/18/22 Unknown History melatonin 3 mg (more content not included)... Normal [facility] Eosinophil percentageOrdered By: Gregorio Cochran on 09-27-2024 Eosinophils/100 WBC (Bld) 0.8 % 0-5 [facility] Epithelial cells.squamous LM Ql (Urine sed)Ordered By: Gregorio Cochran on 09-27-2024 Epithelial cells.squamous LM.HPF (Urine sed) [#/Area] 0 /[HPF] 5-10 [facility] Erythrocyte distribution wid th ratioOrdered By: Gregorio Cochran on 09-27-2024 Erythrocyte distribution width (RBC) [Ratio] 13.6 % 11.6-14.6 [facility] Erythrocyte distribution wid th standard deviationOrdered By: Gregorio Cochran on 09-27-2024 Erythrocyte distribution width (RBC) [Entitic vol] 44.8 fL High 35.1-43.9 [facility] GFR/1.73 sq M.predicted augustin g non-blacks MDRD (S/P/Bld) [Vol rate/Area]Ordered By: Gregorio Cochran on 09-27-2024 Estimated GFR (MDRD) Non-Af Amer 44 Low >60 [facility] Comment on above: mL/min/1.73m2 CKD-EP I Creatinine Equation (2020) Glucose Ql (U)Ordered By: Miguel Cochran on 09-27-2024 Urine Glucose (UA) Normal mg/dl Normal [facility] Hematocrit Auto (Bld) [Volum e fraction]Ordered By: Gregorio Cochran on 09-27-2024 Hematocrit (Bld) [Volume fraction] 43.9 % 37-47 [facility] Hemoglobin measurementOrdere d By: Gregorio Cochran on 09-27-2024 Hemoglobin (Bld) [Mass/Vol] 14.2 g/dL 12.0-15.0 [facility] Immature granulocytes/100 WB C Auto (Bld)Ordered By: Gregorio Cochran on 09-27-2024 Immature granulocytes/100 WBC (Bld) 0.500 % 0.0-0.9 [facility] Comment on above: IG% - Immature Granu locytes (promyelocytes, myelocytes and metamyelocytes) > 1% indicates that a LEFT SHIFT is Present. Ketones Test strip Ql (U)Ord ered By: Gregorio Cochran on 09-27-2024 Ketones Ql (U) Negative Negative [facility] Lymphocytes Auto (Unsp spec) [#/Vol]Ordered By: Gregorio Cochran on 09-27-2024 Lymphocytes (Bld) [#/Vol] 2.73 10*3/uL 0.83-4.51 [facility] Lymphocytes/100 WBC Auto (Un sp spec)Ordered By: Gregorio Cochran on 09-27-2024 Lymphocytes/100 WBC (Bld) 25.9 % 19-41 [facility] MCV (mean corpuscular volume ) determinationOrdered By: Gregorio Cochran on 09-27-2024 MCV (RBC) [Entitic vol] 90.7 fL 81-99 [facility] Mean corpuscular hemoglobin (MCH) determinationOrdered By: Gregorio Cochran on 09-27-2024 MCH (RBC) [Entitic mass] 29.3 pg 27.0-32.0 [facility] Mean corpuscular hemoglobin concentration (MCHC) determinationOrdered By: Gregorio Cochran on 09-27-2024 MCHC (RBC) [Mass/Vol] 32.3 g/dL 32-36 [facility] Mean platelet volume determi nationOrdered By: Gregorio Cochran on 09-27-2024 Platelet mean volume (Bld) [Entitic vol] 10.1 fL 6.2-12.0 [facility] Microscopic analysis of urin e for red blood cells (RBC)Ordered By: Gregorio Cochran on 09-27-2024 Urine RBC 0-5 SEEN /hpf 0-5 [facility] Monocyte percentageOrdered B y: Gregorio Cochran on 09-27-2024 Monocytes/100 WBC (Bld) 7.7 % 0-10 [facility] Mucus LM Ql (Urine sed)Order ed By: Gregorio Cochran on 09-27-2024 Mucus Ql (Urine sed) 0 SEEN /hpf [facility] Neutrophil percentageOrdered By: Gregorio Cochran on 09-27-2024 Neutrophils/100 WBC (Bld) 64.6 % 47-70 [facility] Nitrite Test strip Ql (U)Ord ered By: Gregorio Cochran on 09-27-2024 Nitrite Ql (U) Negative Negative [facility] Nucleated red blood cell per centageOrdered By: Gregorio Cochran on 09-27-2024 Nucleated RBC/100 WBC (Bld) [Ratio] 0 % 0-5 [facility] Platelet countOrdered By: Miguel Cochran on 09-27-2024 Platelets (Bld) [#/Vol] 214 10*3/uL 150-450 [facility] Potassium (Unsp spec) [Mass/ Vol]Ordered By: Gregorio Cochran on 09-27-2024 Potassium [Moles/Vol] 4.0 mmol/L 3.3-5.1 [facility] Protein Test strip Ql (U)Ord ered By: Gregorio Cochran on 09-27-2024 Protein Ql (U) Negative Negative [facility] RBC Auto (Bld) [#/Vol]Ordere d By: Gregorio Cochran on 09-27-2024 RBC (Bld) [#/Vol] 4.84 10*6/uL 4.2-5.4 [facility] Serum creatinine measurement (mass/volume)Ordered By: Gregorio Cochran on 09-27-2024 Creatinine [Mass/Vol] 1.37 mg/dL High 0.70-1.20 [facility] Serum glucose measurement (m ass/volume)Ordered By: Gregorio Cochran on 09-27-2024 Glucose [Mass/Vol] 254 mg/dL High 70-99 [facility] Serum or plasma calcium fabi urement (mass/volume)Ordered By: Gregorio Cochran on 09-27-2024 Calcium [Mass/Vol] 9.5 mg/dL 7.6-11.0 [facility] Serum or plasma urea nitroge n measurement (mass/volume)Ordered By: Gregorio Cochran on 09-27-2024 Urea nitrogen [Mass/Vol] 17 mg/dL 4-19 [facility] Sodium levelOrdered By: Camron Cochran on 09-27-2024 Sodium [Moles/Vol] 136 mmol/L 133-145 [facility] Urinalysis, Completeon 09-27 BACTERIA 3+ /hpf Normal None Seen [facility] Comment on above: Order Comment: COLLE CTOR TO SPECIFY Performed By: #### L 400.0001 ####[facility] [address] [place], [address] EPI,SQUAMOUS 0-5 SEEN Normal 5-10 [facility] Comment on above: Order Comment: MASHA CTOR TO SPECIFY Performed By: #### L 400.0001 ####[facility] [address] [place], [address] RBC 0-5 SEEN Normal 0-5 [facility] Comment on above: Order Comment: MASHA CTOR TO SPECIFY Performed By: #### L 400.0001 ####[facility] [address] [place], [address] WBC 0-5 SEEN Normal 0-5 [facility] Comment on above: Order Comment: MASHA CTOR TO SPECIFY Performed By: #### L 400.0001 ####[facility] [address] [place], [address] Mucus Ql (Urine sed) 0 SEEN Normal [facility] Comment on above: Order Comment: MASHA CTOR TO SPECIFY Performed By: #### L 400.0001 ####[facility] [address] [place], [address] Urine blood detectionOrdered By: Gregorio Cochran on 09-27-2024 Urine Occult Blood 25 /ul High Negative [facility] Urine clarityOrdered By: Kris Cochran on 09-27-2024 Clarity (U) Clear Clear [facility] Urine color determinationOrd ered By: Gregorio Cochran on 09-27-2024 Color (U) Yellow Yellow [facility] Urine leukocyte esterase det ection by dipstickOrdered By: Gregorio Cochran on 09-27-2024 Leukocyte esterase Test strip Ql (U) 25 /ul High Negative [facility] Urine pHOrdered By: Gregorio mercer on 09-27-2024 pH (U) 6.5 [pH] 5.0 - 8.0 [facility] Urine sediment bacteria coun t by microscopy (number/high power field)Ordered By: Gregorio Cochran on 09-27-2024 Bacteria LM.HPF (Urine sed) [#/Area] 3 /[HPF] None Seen [facility] Urine specific gravity measu rementOrdered By: Gregorio Cochran on 09-27-2024 Specific gravity (U) [Rel density] 1.010 1.002-1.03 0 [facility] Urobilinogen Ql (U)Ordered B y: Gregorio Cochran on 09-27-2024 Urine Urobilinogen Normal mg/dl Normal [facility] White blood cell (WBC) count Ordered By: Gregorio Cochran on 09-27-2024 WBC (Bld) [#/Vol] 10.5 10*3/uL 4.4-11.0 [facility] White blood cell countOrdere d By: Gregorio Cochran on 09-27-2024 Urine WBC 0-5 SEEN /hpf 0-5 [facility] Abdomen/Pelvis without Conto n 09-12-2024 Abdomen/Pelvis without Cont [facility] Imaging Services [address] [place] [address] Abdomen/Pelvis without Cont MR#: [id number] Acct: [id number] Name: JULIANA MERIDA Rep #: [id number] : 1960 F 63 From: Ronaldo Stevenson PCP: Mariah Guevara MD Status: [facility] ER Study: Abdomen/Pelvis without Cont Date of Exam: 08/08 Exam# [id number] Ordering Dr: Dino Pena MD PROCEDURE: ABDOMEN/PELVIS WITHOUT CONT REASON FOR EXAM: Flank pain TECHNIQUE: Abdomen and pelvis CT without contrast COMPARISON: None. FINDINGS: 5 mm right lower pole stone is seen. 3 mm right midpole stone is seen Apparent enlargement of a right midpole lesion possibly cystic although solid renal lesion not excluded. Reference 104 on axial imaging. It measures about 2.3 cm. Small 4 mm left exophytic calcification. No hydronephrosis seen bilaterally Bronchial thickening detected. Lingular atelectasis fairly pronounced hepatic steatosis with geographic areas of more focal fatty infiltration. Cholecystectomy changes. Moderate vascular calcification. No aneurysm. Diverticulosis. No diverticulitis. Uterus is not seen presumed removed. Low-lying urinary bladder. Spinal stimulating device detected. No fluid collections. No free air. Postsurgical changes seen left hip cause pelvic artifact. Demineralization of the bones. CT/Abdomen/Pelvis without Cont IMPRESSION: Nonobstructive right nephroliths. There does appear to be a cystic lesion seen in the right kidney which appears to be more prominent. This is possibly a hyperdense cyst. If the patient has not had a renal MRI, further evaluation advised to exclude renal neoplasm. Enlarged liver with hepatic steatosis and more ill-defined areas of geographic fatty infiltration. Diverticulosis. No diverticulitis. One or more dose reduction techniques were used (e.g., Automated exposure control, adjustment of the mA and/or kV according to patient size, use of iterative reconstruction technique). Reading Location: [facility] CC: Mariah Guevara MD; Dr. Dino Pena MD Camouflage Assembler: Signed Normal [facility] Absolute neutrophil countOrd ered By: Dino Pena on 09-12-2024 Neutrophils (Bld) [#/Vol] 13.0 10*3/uL High 2.0-7.7 [facility] Amorphous sediment detection in urine sediment by light microscopyOrdered By: Dino Pena on 09-12-2024 Amorphous sediment LM Ql (Urine sed) 1+ URATE [facility] BUN/creatinine ratioOrdered By: Dino Pena on 09-12-2024 Urea nitrogen/Creatinine [Mass ratio] 16.2 mg/mg 10- [facility] Basic Metabolic Profile (BMP )on 09-12-2024 Anion gap [Moles/Vol] 14 mmol/L Normal 5-15 [facility] Comment on above: Performed By: #### L 100.0100, L500.2500 ####[facility] [address] [place], [address] BUN/CRE 16.2 RATIO Normal - [facility] Comment on above: Performed By: #### L 100.0100, L500.2500 ####[facility] [address] [place], [address] Calcium [Mass/Vol] 9.3 mg/dL Normal 7.6-11.0 [facility] Comment on above: Performed By: #### L 100.0100, L500.2500 ####[facility] [address] [place], [address] Chloride [Moles/Vol] 94 mmol/L Low 96-108 [facility] Comment on above: Performed By: #### L 100.0100, L500.2500 ####[facility] [address] [place], [address] CO2 [Moles/Vol] 23.3 mmol/L Normal 22.0-29.0 [facility] Comment on above: Performed By: #### L 100.0100, L500.2500 ####[facility] [address] [place], [address] Creatinine [Mass/Vol] 1.29 mg/dL High 0.70-1.20 [facility] Comment on above: Performed By: #### L 100.0100, L500.2500 ####[facility] [address] [place], [address] ECRCL 50.34 ml/min Normal 50-250 [facility] Comment on above: Performed By: #### L 100.0100, L500.2500 ####[facility] [address] [place], [address] GFR/1.73 sq M.predicted among non-blacks MDRD (S/P/Bld) [Vol rate/Area] 47 mL/min/{1.73_m2} Low >60 [facility] Comment on above: Result Comment: mL/m in/1.73m2 CKD-EPI Creatinine Equation (2020) Performed By: #### L 100.0100, L500.2500 ####[facility] [address] [place], [address] Glucose [Mass/Vol] 239 mg/dL High 70-99 [facility] Comment on above: Performed By: #### L 100.0100, L500.2500 ####[facility] [address] [place], [address] Potassium [Moles/Vol] 4.3 mmol/L Normal 3.3-5.1 [facility] Comment on above: Performed By: #### L 100.0100, L500.2500 ####[facility] [address] [place], [address] Sodium [Moles/Vol] 132 mmol/L Low 133-145 [facility] Comment on above: Performed By: #### L 100.0100, L500.2500 ####[facility] [address] [place], [address] Urea nitrogen [Mass/Vol] 21 mg/dL High 4-19 [facility] Comment on above: Performed By: #### L 100.0100, L500.2500 ####[facility] [address] [place], [address] Basophil percentageOrdered B y: Dino Pena on 09-12-2024 Basophils/100 WBC (Bld) 0.4 % 0-1 [facility] Bilirubin Test strip Ql (U)O rdered By: Dino Pena on 09-12-2024 Bilirubin Ql (U) Negative Negative [facility] CBC W/Diff, Automatedon 03-0 Absolute Lymph 2.44 X10 3/uL Normal 0.83-4.51 [facility] Comment on above: Performed By: #### L 100.0100, L500.2500 ####[facility] [address] [place], [address] Absolute Neut 13.0 X10 3/uL High 2.0-7.7 [facility] Comment on above: Performed By: #### L 100.0100, L500.2500 ####[facility] [address] [place], [address] Basophils/100 WBC (Bld) 0.4 % Normal 0-1 [facility] Comment on above: Performed By: #### L 100.0100, L500.2500 ####[facility] [address] [place], [address] Eosinophils/100 WBC (Bld) 0.2 % Normal 0-5 [facility] Comment on above: Performed By: #### L 100.0100, L500.2500 ####[facility] [address] [place], [address] Erythrocyte distribution width (RBC) [Ratio] 13.6 % Normal 11.6-14.6 [facility] Comment on above: Performed By: #### L 100.0100, L500.2500 ####[facility] [address] [place], [address] Hematocrit (Bld) [Volume fraction] 45.5 % Normal 37-47 [facility] Comment on above: Performed By: #### L 100.0100, L500.2500 ####[facility] [address] [place], [address] Hemoglobin (Bld) [Mass/Vol] 14.7 g/dL Normal 12.0-15.0 [facility] Comment on above: Performed By: #### L 100.0100, L500.2500 ####[facility] [address] [place], [address] IG% 0.700 Normal 0.0-0.9 [facility] Comment on above: Result Comment: IG% - Immature Granulocytes (promyelocytes, myelocytes and metamyelocytes) > 1% indicates that a LEFT SHIFT is Present. Performed By: #### L 100.0100, L500.2500 ####[facility] [address] [place], [address] Lymphocytes/100 WBC (Bld) 14.6 % Low 19-41 [facility] Comment on above: Performed By: #### L 100.0100, L500.2500 ####[facility] [address] [place], [address] MCH (RBC) [Entitic mass] 28.9 pg Normal 27.0-32.0 [facility] Comment on above: Performed By: #### L 100.0100, L500.2500 ####[facility] [address] [place], [address] MCHC (RBC) [Mass/Vol] 32.3 g/dL Normal 32-36 [facility] Comment on above: Performed By: #### L 100.0100, L500.2500 ####[facility] [address] [place], [address] MCV (RBC) [Entitic vol] 89.4 fL Normal 81-99 [facility] Comment on above: Performed By: #### L 100.0100, L500.2500 ####[facility] [address] [place], [address] Monocytes/100 WBC (Bld) 6.7 % Normal 0-10 [facility] Comment on above: Performed By: #### L 100.0100, L500.2500 ####[facility] [address] [place], [address] Neutrophils/100 WBC (Bld) 77.4 % High 47-70 [facility] Comment on above: Performed By: #### L 100.0100, L500.2500 ####[facility] [address] [place], [address] Nucleated RBC (Bld) [#/Vol] 0 10*3/uL Normal 0-5 [facility] Comment on above: Performed By: #### L 100.0100, L500.2500 ####[facility] [address] [place], [address] Platelet mean volume (Bld) [Entitic vol] 10.2 fL Normal 6.2-12.0 [facility] Comment on above: Performed By: #### L 100.0100, L500.2500 ####[facility] [address] [place], [address] Platelets (Bld) [#/Vol] 272 10*3/uL Normal 150-450 [facility] Comment on above: Performed By: #### L 100.0100, L500.2500 ####[facility] [address] [place], [address] RBC (Bld) [#/Vol] 5.09 10*6/uL Normal 4.2-5.4 [facility] Comment on above: Performed By: #### L 100.0100, L500.2500 ####[facility] [address] [place], [address] RDW SD 44.4 fl High 35.1-43.9 [facility] Comment on above: Performed By: #### L 100.0100, L500.2500 ####[facility] [address] [place], [address] WBC (Bld) [#/Vol] 16.8 10*3/uL High 4.4-11.0 [facility] Comment on above: Performed By: #### L 100.0100, L500.2500 ####[facility] [address] [place], [address] Carbon dioxide measurementOr dered By: Dino Pena on 09-12-2024 CO2 [Moles/Vol] 23.3 mmol/L 22.0-29.0 [facility] Chloride measurementOrdered By: Dino Pena on 09-12-2024 Chloride [Moles/Vol] 94 mmol/L Low 96-108 [facility] Emergency Department Summary on 09-12-2024 Emergency Department Summary [facility] Medical Records Department [address] [place] [address] Emergency Department Summary 09/12/24 MR#: [id number] Acct: [id number] Name: JULIANA MERIDA Rep #: [id number] : 1960 63 From: Dino Pena MD PCP: Mariah Guevara MD Status:DEP ER Location: ED HPI HPI - GI History of Present Illness Chief Complaint: Flank Pain Informant: patient and EMS Narrative Narrative: 63-year-old correction patient presenting with pain in her right flank that started around 7 or 8 hours ago, associate with nausea and vomiting but she woke up this past morning at 3 AM with nausea and some dry heaving without the pain. She was feeling poorly since then and then the pain started that feels like a kidney stone that she has had in the past. Last time she had a kidney stone was 3 months or so ago. She has seen a urologist in [place] but she cannot remember who it was. She denies any hematuria she is on Eliquis. She denies any cough, shortness of breath, fevers or chills or other symptoms. 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 GERD (gastroesophageal reflux disease) Anxiety Schizophrenia Hyperlipidemia Insomnia Neuralgia and neuritis Spondylosis Mild asthma Cerebral vascular disease Hypertension Home Medications ???Medication ???Instructions ???Recorded ???Last Taken ???Type amlodipine 5 mg tablet 5 mg PO DAILY blood pressure 03/0803/08/19 History ondansetron HCl 4 mg tablet 4 mg PO Q6H PRN PRN Nausea 9 Unknown History prazosin 1 mg capsule 1 mg PO QHS nightmares 03/08/19 20:00 History albuterol sulfate 2.5 mg/3 mL 2.5 mg inhalation Q4H PRN SOB 07/15 12/03 Unknown History (0.083 %) solution for nebulization apixaban 5 mg tablet (Eliquis) 5 mg PO BID 07/29/21 02/06/24 Hist ory lurasidone 80 mg tablet (Latuda) 80 mg PO DAILY 07/29/21 Unknown Hi story naloxegol 25 mg tablet (Movantik) 25 mg PO DAILY 07/29/21 Unknown H istory pantoprazole 40 mg tablet,delayed 40 mg PO DAILY 07/29/21 Unknown H istory release acetaminophen 325 mg tablet 650 mg PO Q6H PRN PRN fever or jimy n 12/18/22 Unknown History aluminum-mag hydroxide-simethicone 5 ml PO .Q3H PRN PRN indigestion 12/18/22 Unknown History 400 mg-400 mg-40 mg/5 mL oral susp (Maalox Maximum Strength) atenolol 25 mg tablet 25 mg PO DAILY 12/18/22 Unknown Hi story atorvastatin 80 mg tablet 40 mg PO QHS cholesterol 12/18/22 Unknown History baclofen 5 mg tablet 5 mg PO TID 12/18/22 Unknown Histo ry benzonatate 100 mg capsule 100 mg PO Q8H PRN cough 12/18/22 U nknown History bisacodyl 10 mg rectal suppository 10 mg GA .Q24 PRN PRN constipati on 12/18/22 Unknown History (Dulcolax (bisacodyl)) bisacodyl 5 mg tablet,delayed 5 mg PO Q8H PRN PRN constipation 0 12/18/22 Unknown History release (Dulcolax (bisacodyl)) cholecalciferol (vitamin D3) 125 125 mcg PO DAILY 12/18/22 Unknown History mcg (5,000 unit) capsule diclofenac sodium 1 % topical gel 2 g topical Q8H PRN PRN pain 01/04 Unknown History epinephrine 0.3 mg/0.3 mL 0.3 mg IM Q5-15M PRN anaphylaxis 0 12/18/22 Unknown History injection, auto-injector (EpiPen) flash glucose sensor (FreeStyle 12/18/22 Unknown History Elisa 2 Sensor kit) fluticasone fur. 200 mcg-umeclid 1 inh inhalation DAILY 12/18/22 Un known History 62.5 mcg-vilant 25 mcg inhalat.powder (Trelegy Ellipta) fluticasone propionate 50 2 spray intranasal DAILY 12/18/22 Unknown History mcg/actuation nasal spray,suspension (Flonase Allergy Relief) guaifenesin 100 mg/5 mL oral liquid 200 mg PO Q4H PRN cough 3 Unknown History hydroxyzine pamoate 25 mg capsule 25 mg PO QHS 12/18/22 Unknown His tory (Vistaril) insulin glargine U-300 conc 300 100 unit subcut BID 12/18/22 Unkno wn History unit/mL (1.5 mL) subcutaneous pen (Toujeo SoloStar U-300 Insulin) ipratropium 0.5 mg-albuterol 3 mg 3 ml inhalation BID PRN shortness 12/18/22 Unknown History (2.5 mg base)/3 mL nebulization of breath soln ipratropium 20 mcg-albuterol 100 1 puff inhalation Q6H PRN 12/18/22 Unknown History mcg/actuation mist for inhalation shortness of breath or wheezing (Combivent Respimat) ipratropium bromide 21 mcg (0.03 2 spray intranasal BID 12/18/22 Un known History %) nasal spray lisinopril 2.5 mg tablet 2.5 mg PO DAILY 12/18/22 Un (more content not included)... Normal [facility] Eosinophil percentageOrdered By: Dino Pena on 09-12-2024 Eosinophils/100 WBC (Bld) 0.2 % 0-5 [facility] Epithelial cells.squamous LM Ql (Urine sed)Ordered By: Dino Pena on 09-12-2024 Epithelial cells.squamous LM.HPF (Urine sed) [#/Area] 0 /[HPF] 5-10 [facility] Erythrocyte distribution wid th ratioOrdered By: Dino Pena on 09-12-2024 Erythrocyte distribution width (RBC) [Ratio] 13.6 % 11.6-14.6 [facility] Erythrocyte distribution wid th standard deviationOrdered By: Dino Pena on 09-12-2024 Erythrocyte distribution width (RBC) [Entitic vol] 44.4 fL High 35.1-43.9 [facility] Estimation of creatinine bret aranceOrdered By: Dino Pena on 09-12-2024 Estimated Creatinine Clearance Calc 50.34 ml/min 50-250 [facility] GFR/1.73 sq M.predicted augustin g non-blacks MDRD (S/P/Bld) [Vol rate/Area]Ordered By: Dino Pena on 09-12-2024 Estimated GFR (MDRD) Non-Af Amer 47 Low >60 [facility] Comment on above: mL/min/1.73m2 CKD-EP I Creatinine Equation (2020) Glucose Ql (U)Ordered By: Navya Pena on 09-12-2024 Urine Glucose (UA) Normal mg/dl Normal [facility] Hematocrit Auto (Bld) [Volum e fraction]Ordered By: Dino Pena on 09-12-2024 Hematocrit (Bld) [Volume fraction] 45.5 % 37-47 [facility] Hemoglobin measurementOrdere d By: Dino Pena on 09-12-2024 Hemoglobin (Bld) [Mass/Vol] 14.7 g/dL 12.0-15.0 [facility] Immature granulocytes/100 WB C Auto (Bld)Ordered By: Dino Pena on 09-12-2024 Immature granulocytes/100 WBC (Bld) 0.700 % 0.0-0.9 [facility] Comment on above: IG% - Immature Granu locytes (promyelocytes, myelocytes and metamyelocytes) > 1% indicates that a LEFT SHIFT is Present. Ketones Test strip Ql (U)Ord ered By: Dino Pena on 09-12-2024 Ketones Ql (U) Negative Negative [facility] Lymphocytes Auto (Unsp spec) [#/Vol]Ordered By: Dino Pena on 09-12-2024 Lymphocytes (Bld) [#/Vol] 2.44 10*3/uL 0.83-4.51 [facility] Lymphocytes/100 WBC Auto (Un sp spec)Ordered By: Dino Pena on 09-12-2024 Lymphocytes/100 WBC (Bld) 14.6 % Low 19-41 [facility] MCV (mean corpuscular volume ) determinationOrdered By: Dino Pena on 09-12-2024 MCV (RBC) [Entitic vol] 89.4 fL 81-99 [facility] Mean corpuscular hemoglobin (MCH) determinationOrdered By: Dino Pena on 09-12-2024 MCH (RBC) [Entitic mass] 28.9 pg 27.0-32.0 [facility] Mean corpuscular hemoglobin concentration (MCHC) determinationOrdered By: Dino Pena on 09-12-2024 MCHC (RBC) [Mass/Vol] 32.3 g/dL 32-36 [facility] Mean platelet volume determi nationOrdered By: Dino Pena on 09-12-2024 Platelet mean volume (Bld) [Entitic vol] 10.2 fL 6.2-12.0 [facility] Microscopic analysis of urin e for red blood cells (RBC)Ordered By: Dino Pena on 09-12-2024 Urine RBC 25-50 SEEN /hpf 0-5 [facility] Monocyte percentageOrdered B y: Dino Pena on 09-12-2024 Monocytes/100 WBC (Bld) 6.7 % 0-10 [facility] Mucus LM Ql (Urine sed)Order ed By: Dino Pena on 09-12-2024 Mucus Ql (Urine sed) 0 SEEN /hpf [facility] Neutrophil percentageOrdered By: Dino Pena on 09-12-2024 Neutrophils/100 WBC (Bld) 77.4 % High 47-70 [facility] Nitrite Test strip Ql (U)Ord ered By: Dino Pena on 09-12-2024 Nitrite Ql (U) Negative Negative [facility] Nucleated red blood cell per centageOrdered By: Dino Pena on 09-12-2024 Nucleated RBC/100 WBC (Bld) [Ratio] 0 % 0-5 [facility] Platelet countOrdered By: Navya Pena on 09-12-2024 Platelets (Bld) [#/Vol] 272 10*3/uL 150-450 [facility] Protein Test strip Ql (U)Ord ered By: Dino Pena on 09-12-2024 Protein Ql (U) 15 mg/dl High Negative [facility] RBC Auto (Bld) [#/Vol]Ordere d By: Dino Pena on 09-12-2024 RBC (Bld) [#/Vol] 5.09 10*6/uL 4.2-5.4 [facility] Serum creatinine measurement (mass/volume)Ordered By: Dino Pena on 09-12-2024 Creatinine [Mass/Vol] 1.29 mg/dL High 0.70-1.20 [facility] Serum glucose measurement (m ass/volume)Ordered By: Dino Pena on 09-12-2024 Glucose [Mass/Vol] 239 mg/dL High 70-99 [facility] Serum or plasma anion gap de termination (moles/volume)Ordered By: Dino Pena on 09-12-2024 Anion gap [Moles/Vol] 14 mmol/L 5-15 [facility] Serum or plasma calcium fabi urement (mass/volume)Ordered By: Dino Pena on 09-12-2024 Calcium [Mass/Vol] 9.3 mg/dL 7.6-11.0 [facility] Serum or plasma potassium me asurementOrdered By: Dino Pena on 09-12-2024 Potassium [Moles/Vol] 4.3 mmol/L 3.3-5.1 [facility] Serum or plasma sodium measu rement (moles/volume)Ordered By: Dino Pena on 09-12-2024 Sodium [Moles/Vol] 132 mmol/L Low 133-145 [facility] Serum or plasma urea nitroge n measurement (mass/volume)Ordered By: Dino Pena on 09-12-2024 Urea nitrogen [Mass/Vol] 21 mg/dL High 4-19 [facility] Urinalysis, Completeon 09-12 AMORPHOUS 1+ URATE Normal [facility] Comment on above: Order Comment: LEROY TER SPECIMEN Performed By: #### L 400.0001 ####[facility] [address] [place], [address] EPI,SQUAMOUS 0-5 SEEN Normal 5-10 [facility] Comment on above: Order Comment: LEROY TER SPECIMEN Performed By: #### L 400.0001 ####[facility] [address] [place], [address] RBC 25-50 SEEN Normal 0-5 [facility] Comment on above: Order Comment: LEROY TER SPECIMEN Performed By: #### L 400.0001 ####[facility] [address] [place], [address] WBC 0-5 SEEN Normal 0-5 [facility] Comment on above: Order Comment: LEROY TER SPECIMEN Performed By: #### L 400.0001 ####[facility] [address] [place], [address] BACTERIA 0 SEEN Normal None Seen [facility] Comment on above: Order Comment: LEROY TER SPECIMEN Performed By: #### L 400.0001 ####[facility] [address] [place], [address] Mucus Ql (Urine sed) 0 SEEN Normal [facility] Comment on above: Order Comment: LEROY TER SPECIMEN Performed By: #### L 400.0001 ####[facility] [address] [place], [address] Urine blood detectionOrdered By: Dino Pena on 09-12-2024 Urine Occult Blood 250 /ul High Negative [facility] Urine clarityOrdered By: Migdalia Pena on 09-12-2024 Clarity (U) Sl. Cloudy Clear [facility] Urine color determinationOrd ered By: Dino Pena on 09-12-2024 Color (U) Yellow Yellow [facility] Urine leukocyte esterase det ection by dipstickOrdered By: Dino Pena on 09-12-2024 Leukocyte esterase Test strip Ql (U) 25 /ul High Negative [facility] Urine pHOrdered By: Dino Pena on 09-12-2024 pH (U) 5.0 [pH] 5.0 - 8.0 [facility] Urine sediment bacteria coun t by microscopy (number/high power field)Ordered By: Dino Pena on 09-12-2024 Bacteria LM.HPF (Urine sed) [#/Area] 0 /[HPF] None Seen [facility] Urine specific gravity measu rementOrdered By: Dino Pena on 09-12-2024 Specific gravity (U) [Rel density] 1.020 1.002-1.03 0 [facility] Urobilinogen Ql (U)Ordered B y: Dino Pena on 09-12-2024 Urine Urobilinogen Normal mg/dl Normal [facility] White blood cell (WBC) count Ordered By: Dino Becky on 09-12-2024 WBC (Bld) [#/Vol] 16.8 10*3/uL High 4.4-11.0 [facility] White blood cell countOrdere d By: Dino Pena on 09-12-2024 Urine WBC 0-5 SEEN /hpf 0-5 [facility] CNPNon 07-16-2024 CNPN Telephone ([employer] ) -------- JULIANA MERIDA ([id number]) 1960 F Date Time Provider Department 07/16/24 FUNMILAYO POPE During your visit today, we recorded the following information about you: Sandra Dunn 07/16/2024 9:45 AM Signed Prol[employer]- [employer] Approved [id number] [facility] Medicare/Portal 07.15.24-07.15.25 2 visits Sandra 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 Allergies As of Date: 07/16/2024 Noted Allergy Reaction NSAIDS (NON-STEROIDAL ANTI-INFLAM*10/16/2006 8 - GI Upset APRICOT 04/13/2005 CLEANING SUPPLIES [Other] 04/13/2005 IVP CONTRAST [Other] 03/14/2005 5 - Intolerance LACTOSE 12/08/2009 LEVAQUIN (LEVOFLOXACIN) 03/14/2005 5 - Intolerance Comments: causes confusion MORPHINE 07/13/2004 9 - Itching OPIOIDS - MORPHINE ANALOGUES 07/13/2004 Comments: vicodin OXYCONTIN (OXYCODONE) 06/21/2008 5 - Intolerance Comments: Did not mix well with other meds, PHENERGAN (PROMETHAZINE HCL) 01/16/2007 9 - Itching PHENOTHIAZINES 07/13/2004 PREDNISONE 03/13/2005 QUINOLONES 07/13/2004 Comments: levaquin MAGDA 04/13/2005 SULINDAC 03/14/2005 1 - Mental Status Change ULTRAM (TRAMADOL) 03/14/2005 9 - Itching Date Reviewed: 09/20/2023 Reviewed by: Izabela Harper, ELNEA - Fully Assessed Reason for Visit: Medication Preauthorization [914] Cmt: Lucas- [place] Approved [id number] [facility] Medicare/Portal 07.15.24-07.15.25 2 visits Prescriptions as of 07/16/2024 - amLODIPine (NORVASC) 5 mg tablet Take 5 mg by mouth every morning. - atenolol (TENORMIN) 25 mg tablet Take 25 mg by mouth every morning. - benzonatate (TESSALON PERLES) 100 mg capsule Take 100 mg by mouth three times daily as needed for cough. - ipratropium-salbutamol (COMBIVENT RESPIMAT) 20-100 mcg/actuation inhaler Inhale 1 Puff as instructed every 6 hours as needed. Maximum 6 puffs daily. - DULoxetine (CYMBALTA) 60 mg capsule Take 60 mg by mouth twice daily. - diclofenac (VOLTAREN) 1 % topical gel Apply to affected area four times daily as needed. PRN, right hip pain - bisacodyl (DULCOLAX, BISACODYL,) 10 mg supp 10 mg by RECTAL route every 8 hours as needed for constipation. - apixaban (ELIQUIS) 5 mg tab(s) Take by mouth twice daily. - EPINEPHrine (EPIPEN 2-STAN) 0.3 mg/0.3 mL auto-injector Inject 0.3 mg intramuscularly as needed. - Blood-Glucose Sensor (FREESTYLE ELISA 3 SENSOR) vivek - furosemide (LASIX ORAL) Take 50 mg by mouth every morning. Lasix 40 mg; 1 tablet PO taken with Lasix 20 mg; 0.5 tablet (10 mg) PO to equal 50 mg every morning for Edema - guaiFENesin (ROBITUSSIN) 100 mg/5 mL syrup Take 10 mL by mouth every 4 hours as needed for cough. - Ipratropium [place] (ATROVENT) 21 mcg (0.03 %) nasal spray Use 2 Sprays in the nose every 12 hours. - ipratropium-albuterol (DUONEB) 0.5 mg-3 mg(2.5 mg base)/3 mL nebu Inhale 3 mL as instructed as directed. BID, prn for SOB - lurasidone (LATUDA) 80 mg tablet Take 80 mg by mouth every morning. - levocetirizine 5 mg tablet Take 5 mg by mouth once daily. - LISINOPRIL ORAL Take 2.5 mg by mouth every morning. - aluminum AND magnesium hydroxide-simethicone (MAALOX MAXIMUM STRENGTH) 400-400-40 mg/5 mL suspension Take 10 mL by mouth as directed. - magnesium hydroxide (MILK OF MAGNESIA ORAL) Take 30 mL by mouth as directed. - montelukast (SINGULAIR) 10 mg tablet Take 10 mg by mouth every morning. - naloxegol (MOVANTIK) 25 mg tablet Take 25 mg by mouth every morning. For constipation - nalOXone HCl 0.4 mg/mL injection 0.4 mg by INJECTION(UNSPECIFIED PARENTERAL ROUTES) route. - ondansetron (ZOFRAN) 4 mg tablet Take 4 mg by mouth every 6 hours as needed. - pantoprazole DR (PROTONIX) 40 mg tablet Take 40 mg by mouth every morning. - carboxymethylcellulose (REFRESH TEARS) 0.5 % drop 1 Drop as needed. - collagenase (SANTYL) ointment Apply to affected area once daily. 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 - insulin glargine,hum.rec.anlog (TOUJEO MAX U-300 SOLOSTAR SUBCUTANEOUS) Inject subcutaneously as directed. - eewrqpnxfdz-aktdtoigk-lw lanter (TRELEGY ELLIPTA) 200-62.5-25 mcg inhalation powder Inhale 1 Puff as instructed once daily. - dulaglutide (TRULICITY) 3 mg/0.5 mL pen injector Inject 3 mg subcutaneously one time a week. - hydrOXYzine pamoate (VISTARIL) 25 mg capsule Take 25 mg by mouth twice daily as needed for itching/rash. - cholecalciferol (VITAMIN D-3) 50 mcg (2,000 unit) tablet Take 2,000 Units by mouth once daily. - atorvastatin (LIPITOR) 80 mg tablet Take 1 tablet by mouth once daily. - clopidogrel (PLAVIX) 75 mg tablet Take 1 tablet by mouth once daily. - diclofenac, EC, (VOLTAREN) 50 mg EC tablet Take 1 tablet by mouth twice daily. - FLUoxetine (PROZAC) 20 mg capsule Take 1 capsule by mouth once daily. - fluticasone (FLONASE) 50 mcg/actuation (more content not included)... Normal [facility] MA MAMMOGRAM SCREENING BILAT ERAL W/TOMOon 06-05-2024 MA MAMMOGRAM SCREENING BILATERAL W/SHEREE ORIGINAL FROM: [address] [address] PROCEDURE FOR: JULIANA MERIDA [address] [facility] [place] [facility] [place] [address] Home: PID#: [id number] Exam#: [id number] : 1960 Age: 63 TO: [facility]IN [facility] [address] [place] [address] EXAMINATION: SCREENING DIGITAL BILATERAL MAMMOGRAM WITH TOMOSYNTHESIS, 06/04/2024 1:08 pm TECHNIQUE: Screening mammography of the bilateral breasts was performed with tomosynthesis. 2D standard and 3D tomosynthesis combination imaging performed through both breasts in the MLO and CC projection. Computer aided detection was utilized in the interpretation of this exam. COMPARISON: None. HISTORY: Breast cancer screening. FINDINGS: BREAST DENSITY: There are scattered areas of fibroglandular density. There are benign appearing scattered calcifications and oval circumscribed densities in both breasts. There are no significant masses or calcifications. IMPRESSION: No mammographic evidence of malignancy. Continued screening with annual mammograms is recommended. Kelsie Mcgovern risk calculations, generated with the history provided, report this patient's 10 year risk and lifetime risk for developing breast cancer at 5.0% and 11.4%, respectively. Based on this assessment tool, if the patient's calculated lifetime risk is below 20%, then the patient is considered at average risk for developing breast cancer. If the patient's calculated lifetime risk is at or above 20%, then the patient is considered high risk for developing breast cancer and may be a candidate for supplemental breast MRI screening in addition to annual mammographic screening per the [employer]. BIRADS: BI-RADS: 2: Benign RECALL: 1 year screening RECALL TYPE: mammo LETTER SENT: Normal BI-RADS 1 and 2 Interpreted by: Suresh Ruiz MD Preliminary Report By: Suresh Ruiz MD Electronically signed By Suresh Ruiz MD Dictated Date: 06/05/2024 3:28:32 PM Prelim Date: 06/05/2024 3:30:24 PM Sign Date: 06/05/2024 3:30:24 PM Ordering Provider: FLORENTIN HANSEN CLINICAL: BASELINE. Supervisor Typesetting: LASHONDA CHAN RT(R)(M) letter sent: Normal BI-RADS 1 and 2 Mammogram BI-RADS: 2 Benign [address] [facility] Abdomen/Pelvis without Conto n 04-08-2024 Abdomen/Pelvis without Cont [facility] Imaging Services [address] [place], [place] [address] Abdomen/Pelvis without Cont MR#: [id number] Acct: [id number] Name: JULIANA MERIDA YANELI Rep #: [id number] : 1960 F 63 From: Rancho Mares MD PCP: Bianca Palomares MD Status: DEP ER Study: Abdomen/Pelvis without Cont Date of Exam: 03/16 12/05 Exam# [id number] Ordering Dr: Rancho Orozco DO [id number] EXAM: CT ABDOMEN AND PELVIS WITHOUT INTRAVENOUS CONTRAST CLINICAL INDICATION: PAIN TECHNIQUE: Helically acquired images were obtained of the abdomen and pelvis without intravenous contrast. CTDIvol = ( 18.85 ) mGy, DLP = ( 1041.08 ) mGycm This CT exam was performed using one or more of the following dose reduction techniques: automated exposure control, adjustment of the mA and/or kV according to patient size, and/or use of iterative reconstruction technique. COMPARISON: No relevant prior studies available. FINDINGS: LOWER THORAX: Unremarkable. Lung bases are clear. No cardiomegaly. No significant pericardial effusion. ABDOMEN: LIVER: Ill-defined hypodensities along the anterior segment of the right and left hepatic lobe. Correlate for any history of prior surgery in this area. Hepatomegaly and hepatic steatosis. GALLBLADDER AND BILE DUCTS: Prior cholecystectomy. No intra- or extrahepatic biliary ductal dilation. PANCREAS: Unremarkable. No focal cystic mass. SPLEEN: Unremarkable. Normal size without focal cystic or solid mass. ADRENALS: Unremarkable. No nodules. KIDNEYS AND URETERS: 2 cm exophytic intermediate density right renal mass laterally. Consider further investigation with renal CT or MRI to exclude neoplasm/enhancement. Small nonobstructing right renal calyceal calculi. No hydronephrosis. Normal renal size and position. STOMACH AND BOWEL: Unremarkable. No colitis or diverticulitis or bowel obstruction. PELVIS: APPENDIX: No evidence of acute appendicitis. BLADDER: Decompressed appearance of the bladder. REPRODUCTIVE: Unremarkable as visualized. No mass. ABDOMEN and PELVIS: INTRAPERITONEAL SPACE: Unremarkable. No ascites or other fluid collection. No free air. BONES/JOINTS: Degenerative changes of the pelvis and spine. Remote ORIF of a left proximal femur fracture. Small fat-containing left inguinal hernia. No suspicious lytic or blastic abnormality. SOFT TISSUES: See above. VASCULATURE: Unremarkable. Abdominal aorta is non-dilated. LYMPH NODES: Unremarkable. No enlarged lymph nodes. CT/Abdomen/Pelvis without Cont IMPRESSION: 1. Small nonobstructing right renal calyceal calculi. 2. No other acute or inflammatory disease or bowel obstruction. 3. Hepatomegaly and hepatic steatosis. 4. Ancillary findings as above.. 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 Performed By: #### L 100.0100, L500.2500, L400.0001 ####[facility] [address] [place], [place], [id number] CA,Total 9.3 mg/dL Normal 8.5-10.1 [facility] Comment on above: Order Comment: RESUL T(S) PREVIOUSLY REPORTED ON MANUAL REQUISITION DURINGDOWNTIME. Performed By: #### L 100.0100, L500.2500, L400.0001 ####[facility] [address] [place], [address] Chloride [Moles/Vol] 101 mmol/L Normal 98-107 [facility] Comment on above: Order Comment: RESUL T(S) PREVIOUSLY REPORTED ON MANUAL REQUISITION DURINGDOWNTIME. Performed By: #### L 100.0100, L500.2500, L400.0001 ####[facility] [address] [place], [address] CO2 [Moles/Vol] 29.0 mmol/L Normal 21.0-32.0 [facility] Comment on above: Order Comment: RESUL T(S) PREVIOUSLY REPORTED ON MANUAL REQUISITION DURINGDOWNTIME. Performed By: #### L 100.0100, L500.2500, L400.0001 ####[facility] [address] [place], [address] Creatinine [Mass/Vol] 1.02 mg/dL Normal 0.55-1.02 [facility] Comment on above: Order Comment: RESUL T(S) PREVIOUSLY REPORTED ON MANUAL REQUISITION DURINGDOWNTIME. Result Comment: The validity of the calculated GFR GFRAA in patients over 70 years has not been determined. Clinical correlation is essential. Performed By: #### L 100.0100, L500.2500, L400.0001 ####[facility] [address] [place], [address] ECRCL 62.65 ml/min Normal [facility] Comment on above: Order Comment: RESUL T(S) PREVIOUSLY REPORTED ON MANUAL REQUISITION DURINGDOWNTIME. Performed By: #### L 100.0100, L500.2500, L400.0001 ####[facility] [address] [place], [address] EST GFR - AA 70 mL/min Normal >60 [facility] Comment on above: Order Comment: RESUL T(S) PREVIOUSLY REPORTED ON MANUAL REQUISITION DURINGDOWNTIME. Performed By: #### L 100.0100, L500.2500, L400.0001 ####[facility] [address] [place], [address] GAP 7 Normal 5-15 [facility] Comment on above: Order Comment: RESUL T(S) PREVIOUSLY REPORTED ON MANUAL REQUISITION DURINGDOWNTIME. Performed By: #### L 100.0100, L500.2500, L400.0001 ####[facility] [address] [place], [address] GFR/1.73 sq M.predicted among non-blacks MDRD (S/P/Bld) [Vol rate/Area] 58 mL/min/{1.73_m2} Low >60 [facility] Comment on above: Order Comment: RESUL T(S) PREVIOUSLY REPORTED ON MANUAL REQUISITION DURINGDOWNTIME. Performed By: #### L 100.0100, L500.2500, L400.0001 ####[facility] [address] [place], [address] Glucose [Mass/Vol] 135 mg/dL High 74-106 [facility] Comment on above: Order Comment: RESUL T(S) PREVIOUSLY REPORTED ON MANUAL REQUISITION DURINGDOWNTIME. Result Comment: Fast ing Glucose result greater than or equal to 126 mg/dL suggests DIABETES MELLITUS per A.D.A. criteria. Performed By: #### L 100.0100, L500.2500, L400.0001 ####[facility] [address] [place], [address] Potassium [Moles/Vol] 3.3 mmol/L Low 3.5-5.1 [facility] Comment on above: Order Comment: RESUL T(S) PREVIOUSLY REPORTED ON MANUAL REQUISITION DURINGDOWNTIME. Performed By: #### L 100.0100, L500.2500, L400.0001 ####[facility] [address] [place], [address] Sodium [Moles/Vol] 137 mmol/L Normal 136-145 [facility] Comment on above: Order Comment: RESUL T(S) PREVIOUSLY REPORTED ON MANUAL REQUISITION DURINGDOWNTIME. Performed By: #### L 100.0100, L500.2500, L400.0001 ####[facility] [address] [place], [address] Urea nitrogen [Mass/Vol] 20 mg/dL High 7-18 [facility] Comment on above: Order Comment: RESUL T(S) PREVIOUSLY REPORTED ON MANUAL REQUISITION DURINGDOWNTIME. Performed By: #### L 100.0100, L500.2500, L400.0001 ####[facility] [address] [place], [address] CBC W/Diff, Automatedon - 5-202 Basophils/100 WBC (Bld) 0.4 % Normal 0-1 [facility] Comment on above: Performed By: #### L 100.0100, L500.2500, L400.0001 ####[facility] [address] [place], [address] Eosinophils/100 WBC (Bld) 0.6 % Normal 0-5 [facility] Comment on above: Performed By: #### L 100.0100, L500.2500, L400.0001 ####[facility] [address] [place], [address] IG% 0.800 Normal 0.0-0.9 [facility] Comment on above: Result Comment: IG% - Immature Granulocytes (promyelocytes, myelocytes and metamyelocytes) > 1% indicates that a LEFT SHIFT is Present. Performed By: #### L 100.0100, L500.2500, L400.0001 ####[facility] [address] [place], [address] Lymphocytes/100 WBC (Bld) 22.9 % Normal 19-41 [facility] Comment on above: Performed By: #### L 100.0100, L500.2500, L400.0001 ####[facility] [address] [place], [address] Monocytes/100 WBC (Bld) 6.9 % Normal 0-10 [facility] Comment on above: Performed By: #### L 100.0100, L500.2500, L400.0001 ####[facility] [address] [place], [address] Neutrophils/100 WBC (Bld) 68.4 % Normal 47-70 [facility] Comment on above: Performed By: #### L 100.0100, L500.2500, L400.0001 ####[facility] [address] [place], [address] Erythrocyte distribution width (RBC) [Ratio] 13.5 % Normal 11.6-14.6 [facility] Comment on above: Performed By: #### L 100.0100, L500.2500, L400.0001 ####[facility] [address] [place], [address] Hematocrit (Bld) [Volume fraction] 42.9 % Normal 37-47 [facility] Comment on above: Performed By: #### L 100.0100, L500.2500, L400.0001 ####[facility] [address] [place], [address] Hemoglobin (Bld) [Mass/Vol] 14.5 g/dL Normal 12.0-15.0 [facility] Comment on above: Performed By: #### L 100.0100, L500.2500, L400.0001 ####[facility] [address] [place], [address] MCH (RBC) [Entitic mass] 29.7 pg Normal 27.0-32.0 [facility] Comment on above: Performed By: #### L 100.0100, L500.2500, L400.0001 ####[facility] [address] [place], [address] MCHC (RBC) [Mass/Vol] 33.8 g/dL Normal 32-36 [facility] Comment on above: Performed By: #### L 100.0100, L500.2500, L400.0001 ####[facility] [address] [place], [address] MCV (RBC) [Entitic vol] 87.9 fL Normal 81-99 [facility] Comment on above: Performed By: #### L 100.0100, L500.2500, L400.0001 ####[facility] [address] [place], [address] Platelet mean volume (Bld) [Entitic vol] 9.9 fL Normal 6.2-12.0 [facility] Comment on above: Performed By: #### L 100.0100, L500.2500, L400.0001 ####[facility] [address] [place], [address] Platelets (Bld) [#/Vol] 200 10*3/uL Normal 150-450 [facility] Comment on above: Performed By: #### L 100.0100, L500.2500, L400.0001 ####[facility] [address] [place], [address] RBC (Bld) [#/Vol] 4.88 10*6/uL Normal 4.2-5.4 [facility] Comment on above: Performed By: #### L 100.0100, L500.2500, L400.0001 ####[facility] [address] [place], [address] RDW SD 43.8 fl Normal 35.1-43.9 [facility] Comment on above: Performed By: #### L 100.0100, L500.2500, L400.0001 ####[facility] [address] [place], [address] WBC (Bld) [#/Vol] 13.4 10*3/uL High 4.4-11.0 [facility] Comment on above: Performed By: #### L 100.0100, L500.2500, L400.0001 ####[facility] [address] [place], [address] Emergency Department Summary on 04-08-2024 Emergency Department Summary [facility] Medical Records Department [address] [place] [address] Emergency Department Summary 04/08/24 MR#: [id number] Acct: [id number] Name: JULIANA MERIDA YANELI Rep #: [id number] : 1960 63 From: [place] DO PCP: Bianca Palomares MD Status:REG ER Location: ED HPI History of Present Illness Chief Complaint: Flank Pain Informant: patient and EMS Narrative Narrative: Patient is a 63-year-old female with past medical history of type 2 diabetes bipolar disorder hyperlipidemia and reported kidney stones. She states she has been having right sided abdominal/flank pain for multiple weeks but feels like in the last 1 to 2 days she has not been able to urinate well. With concern for potential kidney stone as well as potential UTI or urinary retention she was sent in for evaluation. 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 GERD (gastroesophageal reflux disease) Anxiety Schizophrenia Hyperlipidemia Insomnia Neuralgia and neuritis Spondylosis Mild asthma Cerebral vascular disease Hypertension Home Medications ???Medication ???Instructions ???Recorded ???Last Taken ???Type amlodipine 5 mg tablet 5 mg PO DAILY blood pressure 03/08/19 03/08/19 History ondansetron HCl 4 mg tablet 4 mg PO Q6H PRN PRN Nausea 03/08/19 Unknown History prazosin 1 mg capsule 1 mg PO QHS nightmares 03/08/19 03/07/19 20:00 History albuterol sulfate 2.5 mg/3 mL 2.5 mg inhalation Q4H PRN SOB 07/29/21 Unknown History (0.083 %) solution for nebulization apixaban 5 mg tablet (Eliquis) 5 mg PO BID 07/29/21 02/06/24 History lurasidone 80 mg tablet (Latuda) 80 mg PO DAILY 07/29/21 Unknown History naloxegol 25 mg tablet (Movantik) 25 mg PO DAILY 07/29/21 Unknown History pantoprazole 40 mg tablet,delayed 40 mg PO DAILY 07/29/21 Unknown History release acetaminophen 325 mg tablet 650 mg PO Q6H PRN PRN fever or pain 12/18/22 Unknown History aluminum-mag hydroxide-simethicone 5 ml PO .Q3H PRN PRN indigestion 12/18/22 Unknown History 400 mg-400 mg-40 mg/5 mL oral susp (Maalox Maximum Strength) atenolol 25 mg tablet 25 mg PO DAILY 12/18/22 Unknown History atorvastatin 80 mg tablet 40 mg PO QHS cholesterol 12/18/22 Unknown History baclofen 5 mg tablet 5 mg PO TID 12/18/22 Unknown History benzonatate 100 mg capsule 100 mg PO Q8H PRN cough 12/18/22 Unknown History bisacodyl 10 mg rectal suppository 10 mg GA .Q24 PRN PRN constipation 12/18/22 Unknown History (Dulcolax (bisacodyl)) bisacodyl 5 mg tablet,delayed 5 mg PO Q8H PRN PRN constipation 12/18/22 Unknown History release (Dulcolax (bisacodyl)) cholecalciferol (vitamin D3) 125 125 mcg PO DAILY 12/18/22 Unknown History mcg (5,000 unit) capsule diclofenac sodium 1 % topical gel 2 g topical Q8H PRN PRN pain 12/18/22 Unknown History epinephrine 0.3 mg/0.3 mL 0.3 mg IM Q5-15M PRN anaphylaxis 12/18/22 Unknown History injection, auto-injector (EpiPen) flash glucose sensor (FreeStyle 12/18/22 Unknown History Elisa 2 Sensor kit) fluticasone fur. 200 mcg-umeclid 1 inh inhalation DAILY 12/18/22 Unknown History 62.5 mcg-vilant 25 mcg inhalat.powder (Trelegy Ellipta) fluticasone propionate 50 2 spray intranasal DAILY 12/18/22 Unknown History mcg/actuation nasal spray,suspension (Flonase Allergy Relief) guaifenesin 100 mg/5 mL oral liquid 200 mg PO Q4H PRN cough 12/18/22 Unknown History hydroxyzine pamoate 25 mg capsule 25 mg PO QHS 12/18/22 Unknown History (Vistaril) insulin glargine U-300 conc 300 100 unit subcut BID 12/18/22 Unknown History unit/mL (1.5 mL) subcutaneous pen (Toujeo SoloStar U-300 Insulin) ipratropium 0.5 mg-albuterol 3 mg 3 ml inhalation BID PRN shortness 12/18/22 Unknown History (2.5 mg base)/3 mL nebulization of breath soln ipratropium 20 mcg-albuterol 100 1 puff inhalation Q6H PRN 12/18/22 Unknown History mcg/actuation mist for inhalation shortness of breath or wheezing (Combivent Respimat) ipratropium bromide 21 mcg (0.03 2 spray intranasal BID 12/18/22 Unknown History %) nasal spray lisinopril 2.5 mg tablet 2.5 mg PO DAILY 12/18/22 Unknown History loratadine 10 mg tablet (Claritin) 10 mg PO DAILY 12/18/22 Unknown History melatonin 3 mg capsule 3 mg PO HS 12/18/22 Unknown History metformin 500 mg tablet 500 mg PO BID 12/18/22 02/07/24 05:30 History montelukast 10 mg tablet 10 mg PO DAILY 12/18/22 Unknown History (more content not included)... Normal [facility] Urinalysis, Completeon 04-08 LEUK ESTERASE Negative Normal Negative [facility] Comment on above: Order Comment: RESUL T(S) PREVIOUSLY REPORTED ON MANUAL REQUISITION DURINGDOWNTIME.CLEAN CATCH Performed By: #### L 100.0100, L500.2500, L400.0001 ####[facility] [address] [place], [place], [address] Nitrite Ql (U) Negative Normal Negative [facility] Comment on above: Order Comment: RESUL T(S) PREVIOUSLY REPORTED ON MANUAL REQUISITION DURINGDOWNTIME.CLEAN CATCH Performed By: #### L 100.0100, L500.2500, L400.0001 ####[facility] [address] [place], [address] OCCULT BLOOD-UR Negative Normal Negative [facility] Comment on above: Order Comment: RESUL T(S) PREVIOUSLY REPORTED ON MANUAL REQUISITION DURINGDOWNTIME.CLEAN CATCH Performed By: #### L 100.0100, L500.2500, L400.0001 ####[facility] [address] [place], [address] pH UR 7.0 Normal 5.0 - 8.0 [facility] Comment on above: Order Comment: RESUL T(S) PREVIOUSLY REPORTED ON MANUAL REQUISITION DURINGDOWNTIME.CLEAN CATCH Performed By: #### L 100.0100, L500.2500, L400.0001 ####[facility] [address] [place], [address] PROT DIPSTX Negative Normal Negative [facility] Comment on above: Order Comment: RESUL T(S) PREVIOUSLY REPORTED ON MANUAL REQUISITION DURINGDOWNTIME.CLEAN CATCH Performed By: #### L 100.0100, L500.2500, L400.0001 ####[facility] [address] [place], [address] SP.GR. DIPSTX 1.005 Normal 1.002-1.03 0 [facility] Comment on above: Order Comment: RESUL T(S) PREVIOUSLY REPORTED ON MANUAL REQUISITION DURINGDOWNTIME.CLEAN CATCH Performed By: #### L 100.0100, L500.2500, L400.0001 ####[facility] [address] [place], [address] UROBILI Normal Normal Normal [facility] Comment on above: Order Comment: RESUL T(S) PREVIOUSLY REPORTED ON MANUAL REQUISITION DURINGDOWNTIME.CLEAN CATCH Performed By: #### L 100.0100, L500.2500, L400.0001 ####[facility] [address] [place], [address] BILIRUBIN URINE Negative Normal Negative [facility] Comment on above: Order Comment: RESUL T(S) PREVIOUSLY REPORTED ON MANUAL REQUISITION DURINGDOWNTIME.CLEAN CATCH Performed By: #### L 100.0100, L500.2500, L400.0001 ####[facility] [address] [place], [address] Clarity (U) Clear Normal Clear [facility] Comment on above: Order Comment: RESUL T(S) PREVIOUSLY REPORTED ON MANUAL REQUISITION DURINGDOWNTIME.CLEAN CATCH Performed By: #### L 100.0100, L500.2500, L400.0001 ####[facility] [address] [place], [address] Color (U) YELLOW Normal Yellow [facility] Comment on above: Order Comment: RESUL T(S) PREVIOUSLY REPORTED ON MANUAL REQUISITION DURINGDOWNTIME.CLEAN CATCH Performed By: #### L 100.0100, L500.2500, L400.0001 ####[facility] [address] [place], [address] GLUCOSE, UR Negative Normal Normal [facility] Comment on above: Order Comment: RESUL T(S) PREVIOUSLY REPORTED ON MANUAL REQUISITION DURINGDOWNTIME.CLEAN CATCH Performed By: #### L 100.0100, L500.2500, L400.0001 ####[facility] [address] [place], [address] KETONE UR Negative Normal Negative [facility] Comment on above: Order Comment: RESUL T(S) PREVIOUSLY REPORTED ON MANUAL REQUISITION DURINGDOWNTIME.CLEAN CATCH Performed By: #### L 100.0100, L500.2500, L400.0001 ####[facility] [address] [place], [address] BACTERIA 0 SEEN Normal None Seen [facility] Comment on above: Order Comment: RESUL T(S) PREVIOUSLY REPORTED ON MANUAL REQUISITION DURINGDOWNTIME.CLEAN CATCH Performed By: #### L 100.0100, L500.2500, L400.0001 ####[facility] [address] [place], [address] EPI,SQUAMOUS 0 SEEN Normal 5-10 [facility] Comment on above: Order Comment: RESUL T(S) PREVIOUSLY REPORTED ON MANUAL REQUISITION DURINGDOWNTIME.CLEAN CATCH Performed By: #### L 100.0100, L500.2500, L400.0001 ####[facility] [address] [place], [address] Mucus Ql (Urine sed) 0 SEEN Normal [facility] Comment on above: Order Comment: RESUL T(S) PREVIOUSLY REPORTED ON MANUAL REQUISITION DURINGDOWNTIME.CLEAN CATCH Performed By: #### L 100.0100, L500.2500, L400.0001 ####[facility] [address] [place], [address] RBC 0 SEEN Normal 0-5 [facility] Comment on above: Order Comment: RESUL T(S) PREVIOUSLY REPORTED ON MANUAL REQUISITION DURINGDOWNTIME.CLEAN CATCH Performed By: #### L 100.0100, L500.2500, L400.0001 ####[facility] [address] [place], [address] WBC 0 SEEN Normal 0-5 [facility] Comment on above: Order Comment: RESUL T(S) PREVIOUSLY REPORTED ON MANUAL REQUISITION DURINGDOWNTIME.CLEAN CATCH Performed By: #### L 100.0100, L500.2500, L400.0001 ####[facility] [address] [place], [address] [facility] 03-23-2024 [facility] Telephone ([employer]) -------- JULIANA MERIDA ([id number]) 1960 F Date Time Provider Department 03/23/24 FUNMILAYO POPE During your visit today, we recorded the following information about you: Valeria Kapoor MA 03/23/2024 11:32 AM Signed Patient was a no show for her appointment today. I called the facility and left a voice mail with the phone number for a call back to get rescheduled. I also sent Renetta AND Alexsandra in [facility]'s office a bubble chat message letting them know patient was a no show today!! Allergies As of Date: 03/23/2024 Noted Allergy Reaction NSAIDS (NON-STEROIDAL ANTI-INFLAM*10/16/2006 8 - GI Upset APRICOT 04/13/2005 CLEANING SUPPLIES [Other] 04/13/2005 IVP CONTRAST [Other] 03/14/2005 5 - Intolerance LACTOSE 12/08/2009 LEVAQUIN (LEVOFLOXACIN) 03/14/2005 5 - Intolerance Comments: causes confusion MORPHINE 07/13/2004 9 - Itching OPIOIDS - MORPHINE ANALOGUES 07/13/2004 Comments: vicodin OXYCONTIN (OXYCODONE) 06/21/2008 5 - Intolerance Comments: Did not mix well with other meds, PHENERGAN (PROMETHAZINE HCL) 01/16/2007 9 - Itching PHENOTHIAZINES 07/13/2004 PREDNISONE 03/13/2005 QUINOLONES 07/13/2004 Comments: levaquin MAGDA 04/13/2005 SULINDAC 03/14/2005 1 - Mental Status Change ULTRAM (TRAMADOL) 03/14/2005 9 - Itching Date Reviewed: 09/20/2023 Reviewed by: Izabela Harper, RN - Fully Assessed Reason for Visit: Appointment [[id number]] Cmt: Infusion center No show Prescriptions as of 03/24/2024 - amLODIPine (NORVASC) 5 mg tablet Take 5 mg by mouth every morning. - atenolol (TENORMIN) 25 mg tablet Take 25 mg by mouth every morning. - benzonatate (TESSALON PERLES) 100 mg capsule Take 100 mg by mouth three times daily as needed for cough. - ipratropium-salbutamol (COMBIVENT RESPIMAT) 20-100 mcg/actuation inhaler Inhale 1 Puff as instructed every 6 hours as needed. Maximum 6 puffs daily. - DULoxetine (CYMBALTA) 60 mg capsule Take 60 mg by mouth twice daily. - diclofenac (VOLTAREN) 1 % topical gel Apply to affected area four times daily as needed. PRN, right hip pain - bisacodyl (DULCOLAX, BISACODYL,) 10 mg supp 10 mg by RECTAL route every 8 hours as needed for constipation. - apixaban (ELIQUIS) 5 mg tab(s) Take by mouth twice daily. - EPINEPHrine (EPIPEN 2-STAN) 0.3 mg/0.3 mL auto-injector Inject 0.3 mg intramuscularly as needed. - Blood-Glucose Sensor (FREESTYLE ELISA 3 SENSOR) vivek - furosemide (LASIX ORAL) Take 50 mg by mouth every morning. Lasix 40 mg; 1 tablet PO taken with Lasix 20 mg; 0.5 tablet (10 mg) PO to equal 50 mg every morning for Edema - guaiFENesin (ROBITUSSIN) 100 mg/5 mL syrup Take 10 mL by mouth every 4 hours as needed for cough. - Ipratropium [place] (ATROVENT) 21 mcg (0.03 %) nasal spray Use 2 Sprays in the nose every 12 hours. - ipratropium-albuterol (DUONEB) 0.5 mg-3 mg(2.5 mg base)/3 mL nebu Inhale 3 mL as instructed as directed. BID, prn for SOB - lurasidone (LATUDA) 80 mg tablet Take 80 mg by mouth every morning. - levocetirizine 5 mg tablet Take 5 mg by mouth once daily. - LISINOPRIL ORAL Take 2.5 mg by mouth every morning. - aluminum AND magnesium hydroxide-simethicone (MAALOX MAXIMUM STRENGTH) 400-400-40 mg/5 mL suspension Take 10 mL by mouth as directed. - magnesium hydroxide (MILK OF MAGNESIA ORAL) Take 30 mL by mouth as directed. - montelukast (SINGULAIR) 10 mg tablet Take 10 mg by mouth every morning. - naloxegol (MOVANTIK) 25 mg tablet Take 25 mg by mouth every morning. For constipation - nalOXone HCl 0.4 mg/mL injection 0.4 mg by INJECTION(UNSPECIFIED PARENTERAL ROUTES) route. - ondansetron (ZOFRAN) 4 mg tablet Take 4 mg by mouth every 6 hours as needed. - pantoprazole DR (PROTONIX) 40 mg tablet Take 40 mg by mouth every morning. - carboxymethylcellulose (REFRESH TEARS) 0.5 % drop 1 Drop as needed. - collagenase (SANTYL) ointment Apply to affected area once daily. 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 - insulin glargine,hum.rec.anlog (TOUJEO MAX U-300 SOLOSTAR SUBCUTANEOUS) Inject subcutaneously as directed. - qpoceyzqwre-pnitbxgkj-qe lanter (TRELEGY ELLIPTA) 200-62.5-25 mcg inhalation powder Inhale 1 Puff as instructed once daily. - dulaglutide (TRULICITY) 3 mg/0.5 mL pen injector Inject 3 mg subcutaneously one time a week. - hydrOXYzine pamoate (VISTARIL) 25 mg capsule Take 25 mg by mouth twice daily as needed for itching/rash. - cholecalciferol (VITAMIN D-3) 50 mcg (2,000 unit) tablet Take 2,000 Units by mouth once daily. - atorvastatin (LIPITOR) 80 mg tablet Take 1 tablet by mouth once daily. - clopidogrel (PLAVIX) 75 mg tablet Take 1 tablet by mouth once daily. - diclofenac, EC, (VOLTAREN) 50 mg EC tablet Take 1 tablet by mouth twice daily. - FLUoxetine (PROZAC) 20 mg (more content not included)... Normal [facility] CNPN Telephone ([employer]) -------- JULIANA MERIDA ([id number]) 1960 F Date Time Provider Department 03/23/24 FUNMILAYO POPE During your visit today, we recorded the following information about you: Valeria Kapoor MA 03/23/2024 11:18 AM Signed error Allergies As of Date: 03/23/2024 Noted Allergy Reaction NSAIDS (NON-STEROIDAL ANTI-INFLAM*10/16/2006 8 - GI Upset APRICOT 04/13/2005 CLEANING SUPPLIES [Other] 04/13/2005 IVP CONTRAST [Other] 03/14/2005 5 - Intolerance LACTOSE 12/08/2009 LEVAQUIN (LEVOFLOXACIN) 03/14/2005 5 - Intolerance Comments: causes confusion MORPHINE 07/13/2004 9 - Itching OPIOIDS - MORPHINE ANALOGUES 07/13/2004 Comments: vicodin OXYCONTIN (OXYCODONE) 06/21/2008 5 - Intolerance Comments: Did not mix well with other meds, PHENERGAN (PROMETHAZINE HCL) 01/16/2007 9 - Itching PHENOTHIAZINES 07/13/2004 PREDNISONE 03/13/2005 QUINOLONES 07/13/2004 Comments: levaquin MAGDA 04/13/2005 SULINDAC 03/14/2005 1 - Mental Status Change ULTRAM (TRAMADOL) 03/14/2005 9 - Itching Date Reviewed: 09/20/2023 Reviewed by: Izabela Harper, RN - Fully Assessed Prescriptions as of 03/23/2024 - amLODIPine (NORVASC) 5 mg tablet Take 5 mg by mouth every morning. - atenolol (TENORMIN) 25 mg tablet Take 25 mg by mouth every morning. - benzonatate (TESSALON PERLES) 100 mg capsule Take 100 mg by mouth three times daily as needed for cough. - ipratropium-salbutamol (COMBIVENT RESPIMAT) 20-100 mcg/actuation inhaler Inhale 1 Puff as instructed every 6 hours as needed. Maximum 6 puffs daily. - DULoxetine (CYMBALTA) 60 mg capsule Take 60 mg by mouth twice daily. - diclofenac (VOLTAREN) 1 % topical gel Apply to affected area four times daily as needed. PRN, right hip pain - bisacodyl (DULCOLAX, BISACODYL,) 10 mg supp 10 mg by RECTAL route every 8 hours as needed for constipation. - apixaban (ELIQUIS) 5 mg tab(s) Take by mouth twice daily. - EPINEPHrine (EPIPEN 2-STAN) 0.3 mg/0.3 mL auto-injector Inject 0.3 mg intramuscularly as needed. - Blood-Glucose Sensor (FREESTYLE ELISA 3 SENSOR) vivek - furosemide (LASIX ORAL) Take 50 mg by mouth every morning. Lasix 40 mg; 1 tablet PO taken with Lasix 20 mg; 0.5 tablet (10 mg) PO to equal 50 mg every morning for Edema - guaiFENesin (ROBITUSSIN) 100 mg/5 mL syrup Take 10 mL by mouth every 4 hours as needed for cough. - Ipratropium [place] (ATROVENT) 21 mcg (0.03 %) nasal spray Use 2 Sprays in the nose every 12 hours. - ipratropium-albuterol (DUONEB) 0.5 mg-3 mg(2.5 mg base)/3 mL nebu Inhale 3 mL as instructed as directed. BID, prn for SOB - lurasidone (LATUDA) 80 mg tablet Take 80 mg by mouth every morning. - levocetirizine 5 mg tablet Take 5 mg by mouth once daily. - LISINOPRIL ORAL Take 2.5 mg by mouth every morning. - aluminum AND magnesium hydroxide-simethicone (MAALOX MAXIMUM STRENGTH) 400-400-40 mg/5 mL suspension Take 10 mL by mouth as directed. - magnesium hydroxide (MILK OF MAGNESIA ORAL) Take 30 mL by mouth as directed. - montelukast (SINGULAIR) 10 mg tablet Take 10 mg by mouth every morning. - naloxegol (MOVANTIK) 25 mg tablet Take 25 mg by mouth every morning. For constipation - nalOXone HCl 0.4 mg/mL injection 0.4 mg by INJECTION(UNSPECIFIED PARENTERAL ROUTES) route. - ondansetron (ZOFRAN) 4 mg tablet Take 4 mg by mouth every 6 hours as needed. - pantoprazole DR (PROTONIX) 40 mg tablet Take 40 mg by mouth every morning. - carboxymethylcellulose (REFRESH TEARS) 0.5 % drop 1 Drop as needed. - collagenase (SANTYL) ointment Apply to affected area once daily. 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 - insulin glargine,hum.rec.anlog (TOUJEO MAX U-300 SOLOSTAR SUBCUTANEOUS) Inject subcutaneously as directed. - gdwifvhooht-pfoqzehax-kl lanter (TRELEGY ELLIPTA) 200-62.5-25 mcg inhalation powder Inhale 1 Puff as instructed once daily. - dulaglutide (TRULICITY) 3 mg/0.5 mL pen injector Inject 3 mg subcutaneously one time a week. - hydrOXYzine pamoate (VISTARIL) 25 mg capsule Take 25 mg by mouth twice daily as needed for itching/rash. - cholecalciferol (VITAMIN D-3) 50 mcg (2,000 unit) tablet Take 2,000 Units by mouth once daily. - atorvastatin (LIPITOR) 80 mg tablet Take 1 tablet by mouth once daily. - clopidogrel (PLAVIX) 75 mg tablet Take 1 tablet by mouth once daily. - diclofenac, EC, (VOLTAREN) 50 mg EC tablet Take 1 tablet by mouth twice daily. - FLUoxetine (PROZAC) 20 mg capsule Take 1 capsule by mouth once daily. - fluticasone (FLONASE) 50 mcg/actuation nasal spray Use 1 [place] in each nostril once daily. . - pregabalin (LYRICA) 100 mg capsule Take 1 capsule by mouth twice daily. - magnesium oxide (MAG-OX) 400 mg tablet Take 1 tablet by mouth once daily. - multivitamin tablet Take 1 tab (more content not included)... Normal [facility] Bedside Glucoseon 03-22-2024 FINGERSTICK GLU 158 mg/dL High 74-106 [facility] Comment on above: Result Comment: PAO MARS OF PATIENT CARE PER NURSING PROTOCOL Performed By: #### L 501.080 ####[facility] [id number] [facility] [place], [address] 12 Lead EKGon 03-21-2024 12 Lead EKG [facility] Cardiovascular Services [address] [place] [address] 12 Lead EKG 03/21/241944 MR#: [id number] Acct: [id number] Name: JULIANA MERIDA Rep #: [id number] : 1960 63 From: Kurt Justice MD Attending Dr: Status: DEP ER Ordering Dr: Oswaldo Lo MD Date: 03/21/24 Location: ED Sex: F C Admitted: Test Reason : DYSRHYTHMIA Blood Pressure : / mmHG Vent. Rate : 095 BPM Atrial Rate : 095 BPM P-R Int : 132 ms QRS Dur : 082 ms QT Int : 364 ms P-R-T Axes : 040 -07 046 degrees QTc Int : 457 ms Normal sinus rhythm Minimal voltage criteria for LVH, may be normal variant ( R in aVL ) Borderline ECG Confirmed by KURT JUSTICE MD ([id number]), mapping editor SVETA STILES ([id number]) on 03/23/2024 6:45:07 AM Referred By: AR Confirmed By:KURT JUSTICE MD 03/23/24 0645 Date Kurt Justice MD CC: Dr. Oswaldo Lo MD; Bianca Palomares MD Signed Normal [facility] 12 Lead EKG [facility] Cardiovascular Services [address] [place] [address] 12 Lead EKG 03/21/24 2110 MR#: [id number] Acct: [id number] Name: JULIANA MERIDA Rep #: [id number] : 1960 63 From: Kurt Justice MD Attending Dr: Status: DEP ER Ordering Dr: Oswaldo Lo MD Date: 03/21/24 Location: ED Sex: F C Admitted: Test Reason : REPEAT CP Blood Pressure : / mmHG Vent. Rate : 099 BPM Atrial Rate : 099 BPM P-R Int : 120 ms QRS Dur : 088 ms QT Int : 358 ms P-R-T Axes : 032 -04 039 degrees QTc Int : 459 ms Normal sinus rhythm Minimal voltage criteria for LVH, may be normal variant ( R in aVL ) Borderline ECG Confirmed by KURT JUSTICE MD ([id number]), mapping editor SVETA STILES ([id number]) on 03/23/2024 6:44:53 AM Referred By: Confirmed By:KURT JUSTICE MD 03/23/24 0644 Date Kurt Justice MD CC: Dr. Oswaldo Lo MD; Bianca Palomares MD Signed Normal [facility] Basic Metabolic Profile (BMP )on 03-21-2024 BUN/CRE 15.2 RATIO Normal 10-20 [facility] Comment on above: Order Comment: 1 Y Performed By: #### L 500.2500, L100.0100, L501.5425 #### [facility] [address] [place], [address] CA,Total 9.7 mg/dL Normal 8.5-10.1 [facility] Comment on above: Order Comment: 1 Y Performed By: #### L 500.2500, L100.0100, L501.5425 #### [facility] [address] [place], [address] Chloride [Moles/Vol] 106 mmol/L Normal 98-107 [facility] Comment on above: Order Comment: 1 Y Performed By: #### L 500.2500, L100.0100, L501.5425 #### [facility] [address] [place], [address] CO2 [Moles/Vol] 25.0 mmol/L Normal 21.0-32.0 [facility] Comment on above: Order Comment: 1 Y Performed By: #### L 500.2500, L100.0100, L501.5425 #### [facility] [address] [place], [address] Creatinine [Mass/Vol] 0.86 mg/dL Normal 0.55-1.02 [facility] Comment on above: Order Comment: 1 Y Result Comment: The validity of the calculated GFR GFRAA in patients over 70 years has not been determined. Clinical correlation is essential. Performed By: #### L 500.2500, L100.0100, L501.5425 #### [facility] [address] [place], [address] ECRCL 74.91 ml/min Normal [facility] Comment on above: Order Comment: 1 Y Performed By: #### L 500.2500, L100.0100, L501.5425 #### [facility] [address] [place], [address] EST GFR - AA 86 mL/min Normal >60 [facility] Comment on above: Order Comment: 1 Y Result Comment: Afri can [place] GFR Calc Performed By: #### L 500.2500, L100.0100, L501.5425 #### [facility] [address] [place], [address] GAP 7 Normal 5-15 [facility] Comment on above: Order Comment: 1 Y Performed By: #### L 500.2500, L100.0100, L501.5425 #### [facility] [address] [place], [address] GFR/1.73 sq M.predicted among non-blacks MDRD (S/P/Bld) [Vol rate/Area] 71 mL/min/{1.73_m2} Normal >60 [facility] Comment on above: Order Comment: 1 Y Result Comment: Non- GFR Calc Performed By: #### L 500.2500, L100.0100, L501.5425 #### [facility] [address] [place], [address] Glucose [Mass/Vol] 227 mg/dL High 74-106 [facility] Comment on above: Order Comment: 1 Y Result Comment: Gluc ose result greater than or equal to 200 mg/dL suggests DIABETES MELLITUS per A.D.A. criteria. Performed By: #### L 500.2500, L100.0100, L501.5425 #### [facility] [address] [place], [address] Potassium [Moles/Vol] 3.7 mmol/L Normal 3.5-5.1 [facility] Comment on above: Order Comment: 1 Y Performed By: #### L 500.2500, L100.0100, L501.5425 #### [facility] [address] [place], [address] Sodium [Moles/Vol] 138 mmol/L Normal 136-145 [facility] Comment on above: Order Comment: 1 Y Performed By: #### L 500.2500, L100.0100, L501.5425 #### [facility] [address] [place], [address] Urea nitrogen [Mass/Vol] 13 mg/dL Normal 7-18 [facility] Comment on above: Order Comment: 1 Y Performed By: #### L 500.2500, L100.0100, L501.5425 #### [facility] [address] [place], [address] CBC W/Diff, Automatedon 09-0 7-2024 Absolute Lymph 3.14 X10 3/uL Normal 0.83-4.51 [facility] Comment on above: Performed By: #### L 500.2500, L100.0100, L501.5425 #### [facility] [address] [place], [address] Absolute Neut 8.1 X10 3/uL High 2.0-7.7 [facility] Comment on above: Performed By: #### L 500.2500, L100.0100, L501.5425 #### [facility] [address] [place], [address] Basophils/100 WBC (Bld) 0.6 % Normal 0-1 [facility] Comment on above: Performed By: #### L 500.2500, L100.0100, L501.5425 #### [facility] [address] [place], [address] Eosinophils/100 WBC (Bld) 0.7 % Normal 0-5 [facility] Comment on above: Performed By: #### L 500.2500, L100.0100, L501.5425 #### [facility] [address] [place], [address] Erythrocyte distribution width (RBC) [Ratio] 13.8 % Normal 11.6-14.6 [facility] Comment on above: Performed By: #### L 500.2500, L100.0100, L501.5425 #### [facility] [address] [place], [address] Hematocrit (Bld) [Volume fraction] 46.8 % Normal 37-47 [facility] Comment on above: Performed By: #### L 500.2500, L100.0100, L501.5425 #### [facility] [address] [place], [address] Hemoglobin (Bld) [Mass/Vol] 15.5 g/dL High 12.0-15.0 [facility] Comment on above: Performed By: #### L 500.2500, L100.0100, L501.5425 #### [facility] [address] [place], [address] IG% 0.700 Normal 0.0-0.9 [facility] Comment on above: Result Comment: IG% - Immature Granulocytes (promyelocytes, myelocytes and metamyelocytes) > 1% indicates that a LEFT SHIFT is Present. Performed By: #### L 500.2500, L100.0100, L501.5425 #### [facility] [address] [place], [address] Lymphocytes/100 WBC (Bld) 25.7 % Normal 19-41 [facility] Comment on above: Performed By: #### L 500.2500, L100.0100, L501.5425 #### [facility] [address] [place], [address] MCH (RBC) [Entitic mass] 29.2 pg Normal 27.0-32.0 [facility] Comment on above: Performed By: #### L 500.2500, L100.0100, L501.5425 #### [facility] [address] [place], [address] MCHC (RBC) [Mass/Vol] 33.1 g/dL Normal 32-36 [facility] Comment on above: Performed By: #### L 500.2500, L100.0100, L501.5425 #### [facility] [address] [place], [address] MCV (RBC) [Entitic vol] 88.1 fL Normal 81-99 [facility] Comment on above: Performed By: #### L 500.2500, L100.0100, L501.5425 #### [facility] [address] [place], [address] Monocytes/100 WBC (Bld) 6.4 % Normal 0-10 [facility] Comment on above: Performed By: #### L 500.2500, L100.0100, L501.5425 #### [facility] [address] [place], [address] Neutrophils/100 WBC (Bld) 65.9 % Normal 47-70 [facility] Comment on above: Performed By: #### L 500.2500, L100.0100, L501.5425 #### [facility] [address] [place], [address] Nucleated RBC (Bld) [#/Vol] 0 10*3/uL Normal 0-5 [facility] Comment on above: Performed By: #### L 500.2500, L100.0100, L501.5425 #### [facility] [address] [place], [address] Platelet mean volume (Bld) [Entitic vol] 10.7 fL Normal 6.2-12.0 [facility] Comment on above: Performed By: #### L 500.2500, L100.0100, L501.5425 #### [facility] [address] [place], [address] Platelets (Bld) [#/Vol] 218 10*3/uL Normal 150-450 [facility] Comment on above: Performed By: #### L 500.2500, L100.0100, L501.5425 #### [facility] [address] [place], [address] RBC (Bld) [#/Vol] 5.31 10*6/uL Normal 4.2-5.4 [facility] Comment on above: Performed By: #### L 500.2500, L100.0100, L501.5425 #### [facility] [address] [place], [address] RDW SD 44.6 fl High 35.1-43.9 [facility] Comment on above: Performed By: #### L 500.2500, L100.0100, L501.5425 #### [facility] [address] [place], [address] WBC (Bld) [#/Vol] 12.2 10*3/uL High 4.4-11.0 [facility] Comment on above: Performed By: #### L 500.2500, L100.0100, L501.5425 #### [facility] [address] [place], [address] Chest 1 View (Portable)on Chest 1 View (Portable) [facility] Imaging Services [address] [place] [address] Chest 1 View (Portable) MR#: [id number] Acct: [id number] Name: JULIANA MERIDA YANELI Rep #: [id number] : 1960 F 63 From: Rob salinas MD PCP: Bianca Palomares MD Status: REG ER Study: Chest 1 View (Portable) Date of Exam: 03/21/24 Exam# [id number] Ordering Dr: Oswaldo Lo MD [id number] INDICATION: chest pain EXAMINATION/TECHNIQUE: X-RAY - XR Chest 1 View COMPARISON: 12/19/2023. FINDINGS: The lungs are clear. Tortuous and calcified thoracic aorta. The heart is not enlarged. No pleural effusion or pneumothorax. No acute osseous abnormalities. RAD/Chest 1 View (Portable) IMPRESSION: No acute radiographic abnormalities. Electronically Signed: Rob Booker MD at 20:25 EDT Reading Location ID and State: [facility] / [place] Tel , Service support , CC: Dr. Oswaldo Lo MD; Bianca Palomares MD Camouflage Assembler: Signed Normal [facility] Emergency Department Summary on 03-21-2024 Emergency Department Summary [facility] Medical Records Department [address] [place] [address] Emergency Department Summary 03/21/24 MR#: [id number] Acct: [id number] Name: JULIANA MERIDA Rep #: [id number] : 1960 63 From: Oswaldo Lo MD PCP: Bianca Palomares MD Status:REG ER Location: ED HPI History of Present Illness Chief Complaint: Chest Pain Narrative Narrative: 63-year-old female past medical history of diabetes, anxiety, schizophrenia, history of stroke presents with chest pain that started this afternoon. She states she has not been feeling well for the last few days. She feels hot and sweaty. She denies any cough. This afternoon she developed chest pain. She denies any nausea or vomiting, no diaphoresis but once again states that she has been sweaty for the last few days. No exacerbating or alleviating factors. 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 GERD (gastroesophageal reflux disease) Anxiety Schizophrenia Hyperlipidemia Insomnia Neuralgia and neuritis Spondylosis Mild asthma Cerebral vascular disease Hypertension Home Medications ???Medication ???Instructions ???Recorded ???Last Taken ???Type amlodipine 5 mg tablet 5 mg PO DAILY blood pressure 03/08/19 03/08/19 History ondansetron HCl 4 mg tablet 4 mg PO Q6H PRN PRN Nausea 03/08/19 Unknown History prazosin 1 mg capsule 1 mg PO QHS nightmares 03/08/19 03/07/19 20:00 History albuterol sulfate 2.5 mg/3 mL 2.5 mg inhalation Q4H PRN SOB 07/29/21 Unknown History (0.083 %) solution for nebulization apixaban 5 mg tablet (Eliquis) 5 mg PO BID 07/29/21 02/06/24 History lurasidone 80 mg tablet (Latuda) 80 mg PO DAILY 07/29/21 Unknown History naloxegol 25 mg tablet (Movantik) 25 mg PO DAILY 07/29/21 Unknown History pantoprazole 40 mg tablet,delayed 40 mg PO DAILY 07/29/21 Unknown History release acetaminophen 325 mg tablet 650 mg PO Q6H PRN PRN fever or pain 12/18/22 Unknown History aluminum-mag hydroxide-simethicone 5 ml PO .Q3H PRN PRN indigestion 12/18/22 Unknown History 400 mg-400 mg-40 mg/5 mL oral susp (Maalox Maximum Strength) atenolol 25 mg tablet 25 mg PO DAILY 12/18/22 Unknown History atorvastatin 80 mg tablet 40 mg PO QHS cholesterol 12/18/22 Unknown History baclofen 5 mg tablet 5 mg PO TID 12/18/22 Unknown History benzonatate 100 mg capsule 100 mg PO Q8H PRN cough 12/18/22 Unknown History bisacodyl 10 mg rectal suppository 10 mg GA .Q24 PRN PRN constipation 12/18/22 Unknown History (Dulcolax (bisacodyl)) bisacodyl 5 mg tablet,delayed 5 mg PO Q8H PRN PRN constipation 12/18/22 Unknown History release (Dulcolax (bisacodyl)) cholecalciferol (vitamin D3) 125 125 mcg PO DAILY 12/18/22 Unknown History mcg (5,000 unit) capsule diclofenac sodium 1 % topical gel 2 g topical Q8H PRN PRN pain 12/18/22 Unknown History epinephrine 0.3 mg/0.3 mL 0.3 mg IM Q5-15M PRN anaphylaxis 12/18/22 Unknown History injection, auto-injector (EpiPen) flash glucose sensor (FreeStyle 12/18/22 Unknown History Elisa 2 Sensor kit) fluticasone fur. 200 mcg-umeclid 1 inh inhalation DAILY 12/18/22 Unknown History 62.5 mcg-vilant 25 mcg inhalat.powder (Trelegy Ellipta) fluticasone propionate 50 2 spray intranasal DAILY 12/18/22 Unknown History mcg/actuation nasal spray,suspension (Flonase Allergy Relief) guaifenesin 100 mg/5 mL oral liquid 200 mg PO Q4H PRN cough 12/18/22 Unknown History hydroxyzine pamoate 25 mg capsule 25 mg PO QHS 12/18/22 Unknown History (Vistaril) insulin glargine U-300 conc 300 100 unit subcut BID 12/18/22 Unknown History unit/mL (1.5 mL) subcutaneous pen (Toujeo SoloStar U-300 Insulin) ipratropium 0.5 mg-albuterol 3 mg 3 ml inhalation BID PRN shortness 12/18/22 Unknown History (2.5 mg base)/3 mL nebulization of breath soln ipratropium 20 mcg-albuterol 100 1 puff inhalation Q6H PRN 12/18/22 Unknown History mcg/actuation mist for inhalation shortness of breath or wheezing (Combivent Respimat) ipratropium bromide 21 mcg (0.03 2 spray intranasal BID 12/18/22 Unknown History %) nasal spray lisinopril 2.5 mg tablet 2.5 mg PO DAILY 12/18/22 Unknown History loratadine 10 mg tablet (Claritin) 10 mg PO DAILY 12/18/22 Unknown History melatonin 3 mg capsule 3 mg PO HS 12/18/22 Unknown History metformin 500 mg tablet 500 mg PO BID 12/18/22 02/07/24 05:30 History montelukast 10 mg tablet 10 mg PO DAILY 12/18/22 Un (more content not included)... Normal [facility] L501.4020on 03-21-2024 TROPONIN-I HS 7 pg/mL Normal 3.0-54.0 [facility] Comment on above: Result Comment: Plea se Note: New Test Units and Gender Specific Reference Ranges. For more information see Policy Stat Procedure [place] High Sensitivity Troponin (TNIH) and attachments. Performed By: #### L 501.4020 #### [facility] [address] [place], [address] L501.5425on 03-21-2024 TROPONIN-I HS 6 pg/mL Normal 3.0-54.0 [facility] Comment on above: Order Comment: 1 Y Result Comment: Plea se Note: New Test Units and Gender Specific Reference Ranges. For more information see Policy Stat Procedure [place] High Sensitivity Troponin (TNIH) and attachments. Performed By: #### L 500.2500, L100.0100, L501.5425 #### [facility] [address] [place], [address] Urinalysis, Completeon 03-21 BACTERIA 1+ /hpf Normal None Seen [facility] Comment on above: Order Comment: LEROY TER SPECIMEN Performed By: #### L 400.0001 #### [facility] [address] [place], [address] EPI,SQUAMOUS 5-10 SEEN Normal 5-10 [facility] Comment on above: Order Comment: LEROY TER SPECIMEN Performed By: #### L 400.0001 #### [facility] [address] [place], [address] WBC 5-10 SEEN Normal 0-5 [facility] Comment on above: Order Comment: LEROY TER SPECIMEN Performed By: #### L 400.0001 #### [facility] [address] [place], [address] BILIRUBIN URINE Negative Normal Negative [facility] Comment on above: Order Comment: LEROY TER SPECIMEN Performed By: #### L 400.0001 #### [facility] [address] [place], [address] Clarity (U) Clear Normal Clear [facility] Comment on above: Order Comment: LEROY TER SPECIMEN Performed By: #### L 400.0001 #### [facility] [address] [place], [address] Color (U) Yellow Normal Yellow [facility] Comment on above: Order Comment: LEROY TER SPECIMEN Performed By: #### L 400.0001 #### [facility] [address] [place], [address] GLUCOSE, UR 1000 mg/dl Abnormal Normal [facility] Comment on above: Order Comment: LEROY TER SPECIMEN Performed By: #### L 400.0001 #### [facility] [address] [place], [address] KETONE UR Negative Normal Negative [facility] Comment on above: Order Comment: LEROY TER SPECIMEN Performed By: #### L 400.0001 #### [facility] [address] [place], [address] LEUK ESTERASE 25 /ul Abnormal Negative [facility] Comment on above: Order Comment: LEROY TER SPECIMEN Performed By: #### L 400.0001 #### [facility] [address] [place], [address] Nitrite Ql (U) Negative Normal Negative [facility] Comment on above: Order Comment: LEROY TER SPECIMEN Performed By: #### L 400.0001 #### [facility] [address] [place], [address] OCCULT BLOOD-UR Negative Normal Negative [facility] Comment on above: Order Comment: LEROY TER SPECIMEN Performed By: #### L 400.0001 #### [facility] [address] [place], [address] pH UR 7.0 Normal 5.0 - 8.0 [facility] Comment on above: Order Comment: LEROY TER SPECIMEN Performed By: #### L 400.0001 #### [facility] [address] [place], [address] PROT DIPSTX 15 mg/dl Abnormal Negative [facility] Comment on above: Order Comment: LEROY TER SPECIMEN Performed By: #### L 400.0001 #### [facility] [address] [place], [address] SP.GR. DIPSTX 1.010 Normal 1.002-1.03 0 [facility] Comment on above: Order Comment: LEROY TER SPECIMEN Performed By: #### L 400.0001 #### [facility] [address] [place], [address] UROBILI Normal Normal Normal [facility] Comment on above: Order Comment: LEROY TER SPECIMEN Performed By: #### L 400.0001 #### [facility] [address] [place], [address] Mucus Ql (Urine sed) 0 SEEN Normal [facility] Comment on above: Order Comment: LEROY TER SPECIMEN Performed By: #### L 400.0001 #### [facility] [address] [place], [address] RBC 0 SEEN Normal 0-5 [facility] Comment on above: Order Comment: LEROY TER SPECIMEN Performed By: #### L 400.0001 #### [facility] [address] [place], [address] Bedside Glucoseon 02-07-2024 FINGERSTICK GLU 251 mg/dL High 74-106 [facility] Comment on above: Result Comment: PAO [facility] PATIENT C[facility] PER NURSING PROTOCOL Performed By: #### L 501.080 ####[facility] [id number] [place], [address] MR/POSTOP.ANEon 02-07-2024 MR/POSTOP.ANE [facility] Medical Records Department [address] [place] [address] Anesthesia Postop Eval I 02/07/24 1026 MR#: [id number] Acct: [id number] Name: MAGNOLIAJULIANA Rep #: [id number] : 1960 63 From: Eric Serna PCP: Bianca Palomares MD Status:[facility] Y Race: C Location: [place] [address] Anesthesia: Postop Eval I Current Vital Signs Temperature: 97 F Pulse Rate: 103 Blood Pressure: 158/84 Respiratory Rate: 16 Pulse Ox: 97 Oxygen Delivery Method: Room Air Assessment Airway patent: Yes Spontaneous unlabored respirations: Yes Mental status: Awake and Calm nausea: No Vomiting: No Anesthesia Complication: No Fluid Hydration Crystalloid volume administer (ml): 800 Total IV fluid infused: 800 Progress Note Anesthesia document: Postop Eval 1 completed: Yes 02/07/24 1027 Date Eric Nolasco Signature: Date CC: Signed Normal [facility] MR/[id number] 02-07-2024 MR/POSTOPAN2 [facility] Medical Records Department [address] [place] [address] Anesthesia Postop Eval II 02/07/24 1300 MR#: [id number] Acct: [id number] Name: MAGNOLIAJULIANA GROVES Rep #: [id number] : 1960 63 From: Eric Monte MD PCP: Bianca Palomares MD Status:[facility] Y Race: C Location: [facility] [place] Anesthesia Postop Eval I Sum Postop Eval Completion status Anesthesia document: Postop Eval 1 completed: Yes Anesthesia Postop Eval I Summary Anesthesia Postop Eval I Summary: Anesthesia Postop Eval I: Assessment Summary Airway patent Yes 02/07/24 10:27 EXOTIC DANCER.MDOT Spontaneous unlabored Yes 02/07/24 10:27 EXOTIC DANCER.MDOT respirations Mental status Awake,Calm 02/07/24 10:27 EXOTIC DANCER.MDOT nausea No 02/07/24 10:27 EXOTIC DANCER.MDOT Vomiting No 02/07/24 10:27 EXOTIC DANCER.MDOT Anesthesia Postop Eval I: Fluid Summary Crystalloid volume administer 800 02/07/24 10:27 EXOTIC DANCER.MDOT (ml) Colloids volume administered ( ml) Blood Product volume administered (ml) Total IV fluid infused 800 02/07/24 10:27 EXOTIC DANCER.OT Anesthesia Postop Eval I: Summary Notes Anesthesia Complication No 02/07/24 10:27 EXOTIC DANCER.MDOT Anesthesia Complication Comment: Post-operative progress note Anesthesia: Postop Eval II Evaluation Mental status: Awake and Calm Pain Level: 1 nausea: No Vomiting: No Complications Anesthesia Complication: No 02/07/24 1300 Date Eric Monte MD Cosigner Signature: Date CC: Signed Normal [facility] Absolute lymphocyte countOrd ered By: Dino Pena on 11-24-2023 Lymphocytes Auto (Unsp spec) [#/Vol] 2.37 10*3/uL 0.83-4.51 [facility] Automated lymphocyte count a s percentage of total leukocytesOrdered By: Dino Pena on 11-24-2023 Lymphocytes/100 WBC Auto (Unsp spec) 20.5 % 19-41 [facility] Basophil percentageOrdered B y: Dino Pena on 11-24-2023 Basophil percentage 0 SEEN /hpf 0-5 [facility] Basophils/100 WBC (Bld) 0.3 % 0-1 [facility] Chloride [Moles/Vol] 104 mmol/L 98-107 [facility] Eosinophils/100 WBC (Bld) 0.6 % 0-5 [facility] Glucose [Mass/Vol] 141 mg/dL 74-106 [facility] Comment on above: Fasting Glucose resu lt greater than or equal to 126 mg/dL suggests DIABETES MELLITUS per A.D.A. criteria. Hemoglobin (Bld) [Mass/Vol] 14.4 g/dL 12.0-15.0 [facility] Monocytes/100 WBC (Bld) 8.4 % 0-10 [facility] Neutrophils (Bld) [#/Vol] 8.0 10*3/uL 2.0-7.7 [facility] Neutrophils/100 WBC (Bld) 69.2 % 47-70 [facility] Potassium [Moles/Vol] 3.9 mmol/L 3.5-5.1 [facility] Sodium [Moles/Vol] 142 mmol/L 136-145 [facility] WBC (Bld) [#/Vol] 11.6 10*3/uL 4.4-11.0 [facility] Bilirubin Test strip Ql (U)O rdered By: Dino Pena on 11-24-2023 Bilirubin Ql (U) Negative Negative [facility] Determination of erythrocyte mean corpuscular volume (MCV)Ordered By: Dino Pena on 11-24-2023 MCV (RBC) [Entitic vol] 89.4 fL 81-99 [facility] Erythrocyte distribution wid th ratioOrdered By: Dino Pena on 11-24-2023 Erythrocyte distribution width (RBC) [Ratio] 15.5 % 11.6-14.6 [facility] Erythrocyte distribution wid th standard deviationOrdered By: Dino Pena on 11-24-2023 Erythrocyte distribution width (RBC) [Entitic vol] 50.6 fL 35.1-43.9 [facility] Hematocrit Auto (Bld) [Volum e fraction]Ordered By: Dino Pena on 11-24-2023 Hematocrit (Bld) [Volume fraction] 43.8 % 37-47 [facility] Immature granulocytes/100 WB C Auto (Bld)Ordered By: Dino Pena on 11-24-2023 Immature granulocytes/100 WBC (Bld) 1.000 % 0.0-0.9 [facility] Comment on above: IG% - Immature Granu locytes (promyelocytes, myelocytes and metamyelocytes) > 1% indicates that a LEFT SHIFT is Present. Ketones Test strip Ql (U)Ord ered By: Dino Pena on 11-24-2023 Ketones Ql (U) Negative Negative [facility] Laboratory - Chemistry and C hemistry - challengeOrdered By: Dino Pena on 11-24-2023 CO2 [Moles/Vol] 33.0 mmol/L 21.0-32.0 [facility] Urea nitrogen/Creatinine [Mass ratio] 17.9 mg/mg 10-20 [facility] Laboratory - Hematology and Cell countsOrdered By: Dino Pena on 11-24-2023 MCH (RBC) [Entitic mass] 29.4 pg 27.0-32.0 [facility] MCHC (RBC) [Mass/Vol] 32.9 g/dL 32-36 [facility] Nucleated RBC/100 WBC (Bld) [Ratio] 0 % 0-5 [facility] Platelet mean volume (Bld) [Entitic vol] 9.9 fL 6.2-12.0 [facility] Platelets (Bld) [#/Vol] 223 10*3/uL 150-450 [facility] Mucus LM Ql (Urine sed)Order ed By: Dino Pena on 11-24-2023 Mucus Ql (Urine sed) 0 SEEN /hpf [facility] Nitrite Test strip Ql (U)Ord ered By: Dino Pena on 11-24-2023 Nitrite Ql (U) Negative Negative [facility] No Panel InformationOrdered By: Dino Pena on 11-24-2023 Urine RBC 0 SEEN /hpf 0-5 [facility] Estimated Creatinine Clearance Calc 77.96 ml/min [facility] Estimated GFR (MDRD) Amer 89 mL/min >60 [facility] Comment on above: GFR Calc Estimated GFR (MDRD) Non-Af Amer 73 mL/min >60 [facility] Comment on above: Non- GFR Calc Troponin I High Sensitivity 5 pg/mL 3.0-54.0 [facility] Comment on above: Please Note: New Ines t Units and Gender Specific Reference Ranges. For more information see Policy Stat Procedure [place] High Sensitivity Troponin (TNIH) and attachments. Protein Test strip Ql (U)Ord ered By: Dino Pena on 11-24-2023 Protein Ql (U) Negative Negative [facility] RBC Auto (Bld) [#/Vol]Ordere d By: Dino Pena on 11-24-2023 RBC (Bld) [#/Vol] 4.90 10*6/uL 4.2-5.4 [facility] Serum or plasma calcium fabi urement (mass/volume)Ordered By: Dino Pena on 11-24-2023 Calcium [Mass/Vol] 9.0 mg/dL 8.5-10.1 [facility] Serum or plasma creatinine m easurement (mass/volume)Ordered By: Dino Pena on 11-24-2023 Creatinine [Mass/Vol] 0.84 mg/dL 0.55-1.02 [facility] Comment on above: The validity of the calculated GFR & GFRAA in patients over 70 years has not been determined. Clinical correlation is essential. Serum or plasma urea nitroge n measurement (mass/volume)Ordered By: Dino Pena on 11-24-2023 Urea nitrogen [Mass/Vol] 15 mg/dL 7-18 [facility] Squamous epithelial cells de tection in urine sediment by light microscopyOrdered By: Dino Pena on 11-24-2023 Epithelial cells.squamous LM Ql (Urine sed) 0-5 SEEN /hpf 5-10 [facility] Thin prep Papanicolaou smear with manual screeningOrdered By: Dino Pena on 11-24-2023 Thin prep Papanicolaou smear with manual screening 5 5-15 [facility] Urine blood detectionOrdered By: Dino Pena on 11-24-2023 RBC Ql (U) Negative Negative [facility] Urine clarityOrdered By: Migdalia Pena on 11-24-2023 Clarity (U) Clear Clear [facility] Urine color determinationOrd ered By: Dino Pena on 11-24-2023 Color (U) Yellow Yellow [facility] Urine glucose detectionOrder ed By: Dino Pena on 11-24-2023 Glucose Ql (U) Normal mg/dl Normal [facility] Urine leukocyte esterase det ection by dipstickOrdered By: Dino Pena on 11-24-2023 Leukocyte esterase Test strip Ql (U) Negative Negative [facility] Urine pHOrdered By: Dino Pena on 11-24-2023 pH (U) 7.0 [pH] 5.0 - 8.0 [facility] Urine sediment bacteria coun t by microscopy (number/high power field)Ordered By: Dino Pena on 11-24-2023 Bacteria LM.HPF (Urine sed) [#/Area] 0 /[HPF] None Seen [facility] Urine specific gravity measu rementOrdered By: Dino Pena on 11-24-2023 Specific gravity (U) [Rel density] 1.010 1.002-1.03 0 [facility] Urine urobilinogen measureme ntOrdered By: Dino Pena on 11-24-2023 Urobilinogen Ql (U) Normal mg/dl Normal [facility] CT ABDOMEN/PELVIS W/O CONTRA STon 10-05-2023 CT ABDOMEN/PELVIS W/O CONTRAST ORIGINAL EXAMINATION: CT OF THE ABDOMEN AND PELVIS WITHOUT CONTRAST 10/04/2023 10:52 am TECHNIQUE: CT of the abdomen and pelvis was performed without the administration of intravenous contrast. Multiplanar reformatted images are provided for review. Automated exposure control, iterative reconstruction, and/or weight based adjustment of the mA/kV was utilized to reduce the radiation dose to as low as reasonably achievable. COMPARISON: 05/04/2022 HISTORY: ORDERING SYSTEM PROVIDED HISTORY: Reason for Exam: Nephrolithiasis FINDINGS: Within the right kidney, there are a few nonobstructing stones, maximum 4 mm. No hydronephrosis. There is a 1.5 cm hyperdense cortical cyst (56 Hounsfield units), most consistent with a proteinaceous cyst. There is a 7 mm cortical area of clustered calcifications in the left kidney, which showed no abnormal contrast enhancement on the prior CT scan, therefore, likely representing a benign partially calcified cyst. No ureteral dilatation or calculus is noted. The urinary bladder is suboptimally distended, but appears grossly unremarkable. The pancreas is atrophic. The liver is fatty. A thickened appearance of the left-sided colon is felt to be due to nondistention. Within the limits of a non-contrast CT, other viscera show no gross acute abnormalities. No free fluid collection is seen. An epidural pain pump catheter is seen extending to the thoracic spine. IMPRESSION: A few punctate nonobstructing right renal stones, maximum 4 mm. No hydronephrosis. 1.5 cm hyperdense right renal cyst, compatible with a Bosniak category 2 cyst, likely a benign proteinaceous cyst. Interpreted by: Maximilian Youngblood DO Preliminary Report By: Maximilian Youngblood DO Electronically signed By Maximilian Youngblood DO Dictated Date: 10/05/2023 8:07:28 PM Prelim Date: 10/05/2023 8:25:51 PM Sign Date: 10/05/2023 8:25:51 PM Ordering Provider: MAULIK العلي Pending [facility] To [facility] ([facility]) Absolute lymphocyte countOrd ered By: Chilango Laughlin on 09-26-2023 Lymphocytes Auto (Unsp spec) [#/Vol] 2.05 10*3/uL 0.83-4.51 [facility] Anaerobic cultureOrdered By: Chilango Laughlin on 09-26-2023 Bacteria identified Anaer cx Nom (Unsp spec) No anaerobic bacteria isolated. [facility] Automated lymphocyte count a s percentage of total leukocytesOrdered By: Chilango Laughlin on 09-26-2023 Lymphocytes/100 WBC Auto (Unsp spec) 20.9 % 19-41 [facility] Bacteria identified Cx Nom ( Wound)Ordered By: Chilango Laughlin on 09-26-2023 Wound Culture Meth. resistant Stap h. aureus [facility] Basophil percentageOrdered B y: Chilango Laughlin on 09-26-2023 Basophils/100 WBC (Bld) 0.4 % 0-1 [facility] Bilirubin [Mass/Vol] 0.40 mg/dL 0.20-1.00 [facility] Comment on above: For patients on eltr ombopag therapy, use of Dimension Partlow TBIL is not recommended. Chloride [Moles/Vol] 106 mmol/L 98-107 [facility] Eosinophils/100 WBC (Bld) 1.3 % 0-5 [facility] Glucose [Mass/Vol] 210 mg/dL 74-106 [facility] Comment on above: Glucose result great er than or equal to 200 mg/dLsuggests DIABETES MELLITUS per A.D.A. criteria. Hemoglobin (Bld) [Mass/Vol] 14.5 g/dL 12.0-15.0 [facility] Monocytes/100 WBC (Bld) 7.7 % 0-10 [facility] Neutrophils (Bld) [#/Vol] 6.8 10*3/uL 2.0-7.7 [facility] Neutrophils/100 WBC (Bld) 69.1 % 47-70 [facility] Potassium [Moles/Vol] 4.5 mmol/L 3.5-5.1 [facility] Comment on above: Moderate Hemolysis, Result may be falsely increased. Protein [Mass/Vol] 6.9 g/dL 6.4-8.2 [facility] Sodium [Moles/Vol] 139 mmol/L 136-145 [facility] WBC (Bld) [#/Vol] 9.8 10*3/uL 4.4-11.0 [facility] Determination of erythrocyte mean corpuscular volume (MCV)Ordered By: Chilango Laughlin on 09-26-2023 MCV (RBC) [Entitic vol] 87.5 fL 81-99 [facility] Erythrocyte distribution wid th ratioOrdered By: Chilango Laughlin on 09-26-2023 Erythrocyte distribution width (RBC) [Ratio] 13.4 % 11.6-14.6 [facility] Erythrocyte distribution wid th standard deviationOrdered By: Chilango Laughlin on 09-26-2023 Erythrocyte distribution width (RBC) [Entitic vol] 42.7 fL 35.1-43.9 [facility] Erythrocyte sedimentation ra teOrdered By: Chilango Laughlin on 09-26-2023 ESR (Bld) [Velocity] 15 mm/h 0-30 [facility] Gram stain for investigation of transfusion reactionOrdered By: Chilango Laughlin on 09-26-2023 Microscopic observation Gram stain Nom (Unsp spec) [facility] Hematocrit Auto (Bld) [Volum e fraction]Ordered By: Chilango Laughlin on 03-14-2024 Hematocrit (Bld) [Volume fraction] 44.9 % 37-47 [facility] Immature granulocytes/100 WB C Auto (Bld)Ordered By: Chilango Laughlin on 09-26-2023 Immature granulocytes/100 WBC (Bld) 0.600 % 0.0-0.9 [facility] Comment on above: IG% - Immature Granu locytes (promyelocytes, myelocytes and metamyelocytes) > 1% indicates that a LEFT SHIFT is Present. Laboratory - Chemistry and C hemistry - challengeOrdered By: Chilango Laughlin on 09-26-2023 Albumin/Globulin [Mass ratio] 1.0 {ratio} 0.9-2.4 [facility] ALP [Catalytic activity/Vol] 60 U/L 45-117 [facility] ALT [Catalytic activity/Vol] 62 U/L 13-56 [facility] CO2 [Moles/Vol] 28.0 mmol/L 21.0-32.0 [facility] Globulin (S) [Mass/Vol] 3.5 g/dL 2.2-4.2 [facility] Urea nitrogen/Creatinine [Mass ratio] 17.4 mg/mg 10-20 [facility] Laboratory - Hematology and Cell countsOrdered By: Chilango Laughlin on 09-26-2023 MCH (RBC) [Entitic mass] 28.3 pg 27.0-32.0 [facility] MCHC (RBC) [Mass/Vol] 32.3 g/dL 32-36 [facility] Nucleated RBC/100 WBC (Bld) [Ratio] 0 % 0-5 [facility] Platelet mean volume (Bld) [Entitic vol] 10.6 fL 6.2-12.0 [facility] Platelets (Bld) [#/Vol] 222 10*3/uL 150-450 [facility] No Panel InformationOrdered By: Chilango Laughlin on 09-26-2023 C-Reactive Protein Extended Range 5.51 mg/L 0.0-3.0 [facility] Comment on above: C-Reactive Protein ( CRP) provides useful information for thediagnosis, therapy and monitoring of inflammatory processesand associated diseases. For the evaluation of Relative Riskfor Cardiovascular Disease, a High Sensitivity CRP (HSCRP)should be ordered. Estimated GFR (MDRD) Amer 93 mL/min >60 [facility] Comment on above: GFR Calc Estimated GFR (MDRD) Non-Af Amer 77 mL/min >60 [facility] Comment on above: Non- GFR Calc RBC Auto (Bld) [#/Vol]Ordere d By: Chilango Laughlin on 09-26-2023 RBC (Bld) [#/Vol] 5.13 10*6/uL 4.2-5.4 [facility] Serum or plasma calcium fabi urement (mass/volume)Ordered By: Chilango Laughlin on 09-26-2023 Calcium [Mass/Vol] 9.4 mg/dL 8.5-10.1 [facility] Serum or plasma creatinine m easurement (mass/volume)Ordered By: Chilango Laughlin on 09-26-2023 Creatinine [Mass/Vol] 0.80 mg/dL 0.55-1.02 [facility] Comment on above: The validity of the calculated GFR & GFRAA in patients over 70 years has not been determined. Clinical correlation is essential. Serum or plasma urea nitroge n measurement (mass/volume)Ordered By: Chilango Laughlin on 09-26-2023 Urea nitrogen [Mass/Vol] 14 mg/dL 7-18 [facility] Thin prep Papanicolaou smear with manual screeningOrdered By: Chilango Laughlin on 09-26-2023 Thin prep Papanicolaou smear with manual screening 3.4 g/dL 3.2-5.0 [facility] Thin prep Papanicolaou smear with manual screening 42 U/L [facility] Comment on above: Moderate Hemolysis, Result may be falsely increased. Thin prep Papanicolaou smear with manual screening 5 5-15 [facility] CNPLazara 09-10-2023 [place] Telephone ([facility]) -------- MAGNOLIA,JULIANA J ([id number]) 1960 F Date Time Provider Department 09/10/23 FUNMILAYO POPE During your visit today, we recorded the following information about you: Funmilayo Pope MD 09/17/2023 3:00 PM Signed Needs allergies updated Allergies As of Date: 09/10/2023 Noted Allergy Reaction NSAIDS (NON-STEROIDAL ANTI-INFLAM*10/16/2006 8 - GI Upset APRICOT 04/13/2005 CLEANING SUPPLIES [Other] 04/13/2005 IVP CONTRAST [Other] 03/14/2005 5 - Intolerance LACTOSE 12/08/2009 LEVAQUIN (LEVOFLOXACIN) 03/14/2005 5 - Intolerance Comments: causes confusion MORPHINE 07/13/2004 9 - Itching OPIOIDS - MORPHINE ANALOGUES 07/13/2004 Comments: vicodin OXYCONTIN (OXYCODONE) 06/21/2008 5 - Intolerance Comments: Did not mix well with other meds, PHENERGAN (PROMETHAZINE HCL) 01/16/2007 9 - Itching PHENOTHIAZINES 07/13/2004 PREDNISONE 03/13/2005 QUINOLONES 07/13/2004 Comments: levaquin MAGDA 04/13/2005 SULINDAC 03/14/2005 1 - Mental Status Change ULTRAM (TRAMADOL) 03/14/2005 9 - Itching Date Reviewed: 03/13/2023 Reviewed by: Izabela Harper, ELENA - Fully Assessed Reason for Visit: Results [95] Primary Visit Diagnosis:Osteoporosis, unspecified osteoporosis type, unspecified pathological fracture presence [M81.0] Order(s):denosumab 60 mg injection (PROLIA)Disp: Rfl: Prescriptions as of 10/07/2023 - amLODIPine (NORVASC) 5 mg tablet Take 5 mg by mouth every morning. - atenolol (TENORMIN) 25 mg tablet Take 25 mg by mouth every morning. - benzonatate (TESSALON PERLES) 100 mg capsule Take 100 mg by mouth three times daily as needed for cough. - ipratropium-salbutamol (COMBIVENT RESPIMAT) 20-100 mcg/actuation inhaler Inhale 1 Puff as instructed every 6 hours as needed. Maximum 6 puffs daily. - DULoxetine (CYMBALTA) 60 mg capsule Take 60 mg by mouth twice daily. - diclofenac (VOLTAREN) 1 % topical gel Apply to affected area four times daily as needed. PRN, right hip pain - bisacodyl (DULCOLAX, BISACODYL,) 10 mg supp 10 mg by RECTAL route every 8 hours as needed for constipation. - apixaban (ELIQUIS) 5 mg tab(s) Take by mouth twice daily. - EPINEPHrine (EPIPEN 2-STAN) 0.3 mg/0.3 mL auto-injector Inject 0.3 mg intramuscularly as needed. - Blood-Glucose Sensor (FREESTYLE ELISA 3 SENSOR) vivek - furosemide (LASIX ORAL) Take 50 mg by mouth every morning. Lasix 40 mg; 1 tablet PO taken with Lasix 20 mg; 0.5 tablet (10 mg) PO to equal 50 mg every morning for Edema - guaiFENesin (ROBITUSSIN) 100 mg/5 mL syrup Take 10 mL by mouth every 4 hours as needed for cough. - Ipratropium [place] (ATROVENT) 21 mcg (0.03 %) nasal spray Use 2 Sprays in the nose every 12 hours. - ipratropium-albuterol (DUONEB) 0.5 mg-3 mg(2.5 mg base)/3 mL nebu Inhale 3 mL as instructed as directed. BID, prn for SOB - lurasidone (LATUDA) 80 mg tablet Take 80 mg by mouth every morning. - levocetirizine 5 mg tablet Take 5 mg by mouth once daily. - LISINOPRIL ORAL Take 2.5 mg by mouth every morning. - aluminum AND magnesium hydroxide-simethicone (MAALOX MAXIMUM STRENGTH) 400-400-40 mg/5 mL suspension Take 10 mL by mouth as directed. - magnesium hydroxide (MILK OF MAGNESIA ORAL) Take 30 mL by mouth as directed. - montelukast (SINGULAIR) 10 mg tablet Take 10 mg by mouth every morning. - naloxegol (MOVANTIK) 25 mg tablet Take 25 mg by mouth every morning. For constipation - nalOXone HCl 0.4 mg/mL injection 0.4 mg by INJECTION(UNSPECIFIED PARENTERAL ROUTES) route. - ondansetron (ZOFRAN) 4 mg tablet Take 4 mg by mouth every 6 hours as needed. - pantoprazole DR (PROTONIX) 40 mg tablet Take 40 mg by mouth every morning. - carboxymethylcellulose (REFRESH TEARS) 0.5 % drop 1 Drop as needed. - collagenase (SANTYL) ointment Apply to affected area once daily. 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 - insulin glargine,hum.rec.anlog (TOUJEO MAX U-300 SOLOSTAR SUBCUTANEOUS) Inject subcutaneously as directed. - vogiudchnmp-zmwcufdfd-fz lanter (TRELEGY ELLIPTA) 200-62.5-25 mcg inhalation powder Inhale 1 Puff as instructed once daily. - dulaglutide (TRULICITY) 3 mg/0.5 mL pen injector Inject 3 mg subcutaneously one time a week. - hydrOXYzine pamoate (VISTARIL) 25 mg capsule Take 25 mg by mouth twice daily as needed for itching/rash. - cholecalciferol (VITAMIN D-3) 50 mcg (2,000 unit) tablet Take 2,000 Units by mouth once daily. - atorvastatin (LIPITOR) 80 mg tablet Take 1 tablet by mouth once daily. - clopidogrel (PLAVIX) 75 mg tablet Take 1 tablet by mouth once daily. - diclofenac, EC, (VOLTAREN) 50 mg EC tablet Take 1 tablet by mouth twice daily. - FLUoxetine (PROZAC) 20 mg capsule Take 1 capsule by mouth once daily. - fluticasone (FLONASE) 50 mcg/actuation nasal spray Use 1 S (more content not included)... Normal [facility] Anaerobic cultureOrdered By: Chilango Laughlin on 08-22-2023 Bacteria identified Anaer cx Nom (Unsp spec) No anaerobic bacteria isolated. [facility] Bacteria identified Anaer cx Nom (Unsp spec) No anaerobic bacteria isolated. [facility] Bacteria identified Cx Nom ( Wound)Ordered By: Chilango Laughlin on 08-22-2023 Wound Culture Meth. resistant Stap h. aureus [facility] Wound Culture Meth. resistant Stap h. aureus [facility] Gram stain for investigation of transfusion reactionOrdered By: Chilango Laughlin on 08-22-2023 Microscopic observation Gram stain Nom (Unsp spec) [facility] Microscopic observation Gram stain Nom (Unsp spec) [facility] Anaerobic cultureOrdered By: Chilango Laughlin on 07-18-2023 Bacteria identified Anaer cx Nom (Unsp spec) No anaerobic bacteria isolated. [facility] Bacteria identified Anaer cx Nom (Unsp spec) No anaerobic bacteria isolated. [facility] Bacteria identified Cx Nom ( Wound)Ordered By: Chilango Laughlin on 07-18-2023 Wound Culture Meth. resistant Stap h. aureus [facility] Wound Culture Meth. resistant Stap h. aureus [facility] Gram stain for investigation of transfusion reactionOrdered By: Chilango Laughlin on 07-18-2023 Microscopic observation Gram stain Nom (Unsp spec) [facility] Microscopic observation Gram stain Nom (Unsp spec) [facility] Anaerobic cultureOrdered By: Dr. Laughlin on 11-25-2022 Bacteria identified Anaer cx Nom (Unsp spec) No anaerobic bacteria isolated. [facility] Bacteria identified Cx Nom ( Wound)Ordered By: Dr. Laughlin on 11-24-2022 Wound Culture Klebsiella pneumonia e sp pneum [facility] Wound Culture Proteus mirabilis [facility] Gram stain for investigation of transfusion reactionOrdered By: Dr. Laughlin on 11-23-2022 Microscopic observation Gram stain Nom (Unsp spec) [facility] Anaerobic cultureOrdered By: Chilango Laughlin on 11-22-2022 Bacteria identified Anaer cx Nom (Unsp spec) No anaerobic bacteria isolated. [facility] Bacteria identified Cx Nom ( Wound)Ordered By: Chilango Laughlin on 11-22-2022 Wound Culture Klebsiella pneumonia e sp pneum [facility] Wound Culture Proteus mirabilis [facility] Gram stain for investigation of transfusion reactionOrdered By: Chilango Laughlin on 11-22-2022 Microscopic observation Gram stain Nom (Unsp spec) [facility] XR ANKLE AND FOOT 6 VIEWS [facility] 10-17-2022 XR ANKLE AND FOOT 6 VIEWS RIGHT ORIGINAL EXAMINATION: 6 XRAY VIEWS OF THE RIGHT FOOT AND ANKLE 10/17/2022 4:42 am COMPARISON: Right foot radiograph on 07/15/2022. HISTORY: ORDERING SYSTEM PROVIDED HISTORY: Reason for Exam: pain. Ran motorized chair into air conditioner. FINDINGS: Bones are demineralized. No acute fracture or dislocation. Talar dome and ankle mortise are intact. Moderate degenerative changes of the midfoot and the 1st metatarsophalangeal joint. No tibiotalar effusion. No radiopaque foreign body. Diffuse ankle swelling. IMPRESSION: No acute fracture or dislocation. Diffuse ankle swelling. I have personally reviewed the images of this examination, and agree with the resident's findings and interpretation. Interpreted by: Marvel Batista MD Preliminary Report By: Can Pickett Electronically signed By Marvel Batista MD Dictated Date: 10/17/2022 4:50:41 AM Prelim Date: 10/17/2022 4:59:49 AM Sign Date: 10/17/2022 5:04:00 AM Ordering Provider: MAKENNA [facility]) XR KNEE THREE VIEWS RIGHTon 10-17-2022 XR KNEE THREE VIEWS RIGHT ORIGINAL EXAMINATION: THREE XRAY VIEWS OF THE RIGHT KNEE 10/17/2022 4:40 am COMPARISON: None. HISTORY: ORDERING SYSTEM PROVIDED HISTORY: Reason for Exam: Pain. Ran motorized chair into air conditioner. FINDINGS: No acute fracture or dislocation. Mild tricompartmental degenerative changes. Mild suprapatellar enthesopathy. No significant joint effusion. No radiopaque foreign body. IMPRESSION: No acute fracture or dislocation. I have personally reviewed the images of this examination, and agree with the resident's findings and interpretation. Interpreted by: Marvel Batista MD Preliminary Report By: Can Pickett Electronically signed By Marvel Batista MD Dictated Date: 10/17/2022 4:45:32 AM Prelim Date: 10/17/2022 4:50:33 AM Sign Date: 10/17/2022 5:02:30 AM Ordering Provider: MAKENNA HYATT [facility]) LABORATORYOrdered By: Cici Mcnally on 04-28-2022 Basophil, Absolute 0.1 103/mcL Invalid Interpretation Code 0.0 - 0.2 10^3/mcL AO Workflow SS Basophils/100 WBC (Bld) 0.8 % Invalid Interpretation Code 0.0 - 2.5 % AO Workflow SS Calcium [Mass/Vol] 9.2 mg/dL Invalid Interpretation Code 8.4 - 10.2 mg/dL AO ADM SS Chloride [Moles/Vol] 98 mmol/L Invalid Interpretation Code 98 - 107 mmol/L AO ADM SS CO2 [Moles/Vol] 33 mmol/L Invalid Interpretation Code 23 - 31 mmol/L AO ADM SS Creatinine [Mass/Vol] 1.05 mg/dL Invalid Interpretation Code 0.55 - 1.02 mg/dL AO ADM SS Electrolyte Balance 4.0 mEq/L Invalid Interpretation Code 4.0 - 15.0 mEq/L AO ADM SS Eosinophil, Absolute 0.0 103/mcL Invalid Interpretation Code 0.0 - 0.4 10^3/mcL AO Workflow SS Eosinophils/100 WBC (Bld) 0.4 % Invalid Interpretation Code 0.0 - 7.0 % AO Workflow SS Erythrocyte distribution width (RBC) [Ratio] 14.5 % Invalid Interpretation Code 11.5 - 14.5 % AO Workflow SS Glucose [Mass/Vol] 217 mg/dL Invalid Interpretation Code 80 - 115 mg/dL AO ADM SS Hematocrit (Bld) [Volume fraction] 44.5 % Invalid Interpretation Code 37.0 - 47.0 % AO Workflow SS Hemoglobin (Bld) [Mass/Vol] 15.4 G/dL Invalid Interpretation Code 12.0 - 16.0 G/dL AO Workflow SS Lymphocyte, Absolute 1.6 103/mcL Invalid Interpretation Code 0.8 - 3.9 10^3/mcL AO Workflow SS Lymphocytes/100 WBC (Bld) 15.1 % Invalid Interpretation Code 10.0 - 50.0 % AO Workflow SS MCH (RBC) [Entitic mass] 29.7 pg Invalid Interpretation Code 27.0 - 31.2 pg AO Workflow SS MCHC 34.7 G/dL Invalid Interpretation Code 33.0 - 37.0 G/dL AO Workflow SS MCV (RBC) [Entitic vol] 85.4 fL Invalid Interpretation Code 80.0 - 94.0 fL AO Workflow SS Monocyte distribution width Auto (Bld) [Entitic vol] 22.49 Invalid Interpretation Code 0.00 - 20.00 AO Workflow SS Comment on above: Result Comment: For adults in ED, MDW>20.0 may be associated with a higher risk of sepsis during the first 12hrs of hospital admission Monocyte, Absolute 0.8 103/mcL Invalid Interpretation Code 0.2 - 1.0 10^3/mcL AO Workflow SS Monocytes/100 WBC (Bld) 7.8 % Invalid Interpretation Code 1.7 - 13.0 % AO Workflow SS Neutrophil, Absolute 7.9 103/mcL Invalid Interpretation Code 2.9 - 6.2 10^3/mcL AO Workflow SS Neutrophils/100 WBC (Bld) 75.9 % Invalid Interpretation Code 37.0 - 80.0 % AO Workflow SS Platelet mean volume (Bld) [Entitic vol] 7.9 fL Invalid Interpretation Code 7.4 - 10.4 fL AO Workflow SS Platelets (Bld) [#/Vol] 182 103/mcL Invalid Interpretation Code 130 - 400 10^3/mcL AO Workflow SS Potassium [Moles/Vol] 3.7 mmol/L Invalid Interpretation Code 3.5 - 5.1 mmol/L AO ADM SS RBC (Bld) [#/Vol] 5.21 106/mcL Invalid Interpretation Code 4.20 - 5.40 10^6/mcL AO Workflow SS Sodium [Moles/Vol] 135 mmol/L Invalid Interpretation Code 136 - 145 mmol/L AO ADM SS Troponin I.cardiac DL <= 0.01 ng/mL [Mass/Vol] 8.3 ng/L Invalid Interpretation Code 0.0 - 51.4 ng/L AO ADM SS Urea nitrogen [Mass/Vol] 14 mg/dL Invalid Interpretation Code 7 - 18 mg/dL AO ADM SS Urea nitrogen/Creatinine [Mass ratio] 13 ratio Invalid Interpretation Code 7 - 27 ratio AO ADM SS WBC (Bld) [#/Vol] 10.4 103/mcL Invalid Interpretation Code 4.6 - 10.8 10^3/mcL AO Workflow SS LABORATORYOrdered By: SYSTEM SYSTEM on 04-28-2022 GFR 65 ml/min/1.73sqm Invalid Interpretation Code AO Chemistry S GFR Non- 53 ml/min/1.73sqm Invalid Interpretation Code AO Chemistry S GLUCOSE, BLOOD (POC)on 12-13 Glucose [Mass/Vol] 247 mg/dL Abnormal 74 - 99 mg/dL [facility] LABORATORYOrdered By: Savanna Allen on 12-01-2021 Appearance (U) Clear (12/01/21 3:44 AM) Invalid Interpretation Code Clear AH Auto Urine SS Bilirubin Ql (U) Negative (12/01/21 3:44 AM) Invalid Interpretation Code Neg-Trace AH Auto Urine SS Color (U) Yellow (12/01/21 3:44 AM) Invalid Interpretation Code AH Auto Urine SS Glucose Test strip (U) [Mass/Vol] Negative Invalid Interpretation Code Negativemg /dL AH Auto Urine SS Hemoglobin Auto test strip (U) [Mass/Vol] Negative (12/01/21 3:44 AM) Invalid Interpretation Code Neg-Trace AH Auto Urine SS Ketones Ql (U) Negative Invalid Interpretation Code Neg-Tracem g/dL AH Auto Urine SS UA Leuk Est Negative (12/01/21 3:44 AM) Invalid Interpretation Code Negative AH Auto Urine SS UA Nitrite Negative (12/01/21 3:44 AM) Invalid Interpretation Code Negative AH Auto Urine SS UA pH 6.5 (12/01/21 3:44 AM) Invalid Interpretation Code 5.0 - 8.0 AH Auto Urine SS UA Protein Negative Invalid Interpretation Code Negativemg /dL AH Auto Urine SS UA Spec Grav 1.010 (12/01/21 3:44 AM) Invalid Interpretation Code 1.006-1.02 9 AH Auto Urine SS UA Specimen Type Clean Catch (12/01/21 3:44 AM) Invalid Interpretation Code AH Auto Urine SS UA Urobilinogen 1.0 E.U./dL Invalid Interpretation Code 0.2-1.0E.U ./dL AH Auto Urine SS LABORATORYOrdered By: Lilly Richards on 12-01-2021 Lactate [Moles/Vol] 1.8 mmol/L Invalid Interpretation Code 0.2 - 2.0 mmol/L AH Auto Chem SS No Panel Informationon 12-01 Microscopic examination of blood, culture Culture has been received in lab and is no growth to date. Routine cultures are held for 5 days. [facility] LABORATORYOrdered By: Jeremy Waters on 11-30-2021 Adenovirus DNA IRISH+non-probe Ql (Nph) Not Detected *NA* (11/30/21 8:58 PM) Invalid Interpretation Code Not Detected AH Auto Viro/Sero SS ADMITTED TO INTENSIVE CARE UNIT FOR CONDITION OF INTEREST:FIND:PT:^SRAVANI ENT:ORD: No (11/30/21 8:58 PM) Invalid Interpretation Code AH Auto Viro/Sero SS B. pertussis toxin promoter region IRISH+non-probe Ql (Nph) Not Detected *NA* (11/30/21 8:58 PM) Invalid Interpretation Code Not Detected AH Auto Viro/Sero SS Bordetella Parapertussis Not Detected *NA* (11/30/21 8:58 PM) Invalid Interpretation Code Not Detected AH Auto Viro/Sero SS C. pneumoniae DNA IRISH+non-probe Ql (Nph) Not Detected *NA* (11/30/21 8:58 PM) Invalid Interpretation Code Not Detected AH Auto Viro/Sero SS EMPLOYED IN A HEALTHCARE SETTING:FIND:PT:^PATIE NT:ORD: No (11/30/21 8:58 PM) Invalid Interpretation Code AH Auto Viro/Sero SS FIRST TEST FOR CONDITION OF INTEREST:FIND:PT:^SRAVANI ENT:ORD: No (11/30/21 8:58 PM) Invalid Interpretation Code AH Auto Viro/Sero SS FLUAV RNA IRISH+non-probe Ql (Nph) Not Detected *NA* (11/30/21 8:58 PM) Invalid Interpretation Code Not Detected AH Auto Viro/Sero SS FLUBV RNA IRISH+non-probe Ql (Nph) Not Detected *NA* (11/30/21 8:58 PM) Invalid Interpretation Code Not Detected AH Auto Viro/Sero SS HAS SYMPTOMS RELATED TO CONDITION OF INTEREST:FIND:PT:^SRAVANI ENT:ORD: No (11/30/21 8:58 PM) Invalid Interpretation Code AH Auto Viro/Sero SS hMPV RNA IRISH+non-probe Ql (Nph) Not Detected *NA* (11/30/21 8:58 PM) Invalid Interpretation Code Not Detected AH Auto Viro/Sero SS Illness or injury onset date and time [id number] Invalid Interpretation Code AH Auto Viro/Sero SS M. pneumoniae DNA IRISH+non-probe Ql (Nph) Not Detected *NA* (11/30/21 8:58 PM) Invalid Interpretation Code Not Detected AH Auto Viro/Sero SS Parainfluenza virus 1 RNA IRISH+non-probe Ql (Nph) Not Detected *NA* (11/30/21 8:58 PM) Invalid Interpretation Code Not Detected AH Auto Viro/Sero SS Parainfluenza virus 2 RNA IRISH+non-probe Ql (Nph) Not Detected *NA* (11/30/21 8:58 PM) Invalid Interpretation Code Not Detected AH Auto Viro/Sero SS Parainfluenza virus 3 RNA IRISH+non-probe Ql (Nph) Not Detected *NA* (11/30/21 8:58 PM) Invalid Interpretation Code Not Detected AH Auto Viro/Sero SS Parainfluenza virus 4 RNA IRISH+non-probe Ql (Nph) Not Detected *NA* (11/30/21 8:58 PM) Invalid Interpretation Code Not Detected AH Auto Viro/Sero SS Patient was hospitalized because of this condition No (11/30/21 8:58 PM) Invalid Interpretation Code AH Auto Viro/Sero SS status Not (11/30/21 8:58 PM) Invalid Interpretation Code AH Auto Viro/Sero SS RESIDES IN A CONGREGATE CARE SETTING:FIND:PT:^PATIE NT:ORD: No (11/30/21 8:58 PM) Invalid Interpretation Code AH Auto Viro/Sero SS Rhinovirus+Enterovirus RNA IRISH+non-probe Ql (Nph) Not Detected *NA* (11/30/21 8:58 PM) Invalid Interpretation Code Not Detected AH Auto Viro/Sero SS RSV RNA IRISH+non-probe Ql (Nph) Not Detected *NA* (11/30/21 8:58 PM) Invalid Interpretation Code Not Detected AH Auto Viro/Sero SS SARS-CoV-2 (COVID-19) RNA IRISH+probe Ql (Unsp spec) Not Detected *NA* (11/30/21 8:58 PM) Invalid Interpretation Code Not Detected AH Auto Viro/Sero SS LABORATORYOrdered By: SYSTEM SYSTEM on 11-30-2021 Albumin BCP dye [Mass/Vol] 4.0 G/dL Invalid Interpretation Code 3.2 - 4.8 G/dL AH ADM SS Albumin/Globulin [Mass ratio] 1.3 {ratio} Invalid Interpretation Code 0.9 - 1.6 ratio AH ADM SS ALP [Catalytic activity/Vol] 88 U/L Invalid Interpretation Code 38 - 126 U/L AH ADM SS ALT No additional P-5'-P [Catalytic activity/Vol] 43 U/L Invalid Interpretation Code 10 - 49 U/L AH ADM SS AST [Catalytic activity/Vol] 32 U/L Invalid Interpretation Code 8 - 34 U/L AH ADM SS Basophils (Bld) [#/Vol] 0.00 103/mcL Invalid Interpretation Code 0.00 - 0.27 10^3/mcL AH Remisol SS Basophils/100 WBC (Bld) 0.2 % Invalid Interpretation Code 0.0 - 2.5 % AH Remisol SS Bilirubin [Mass/Vol] 0.60 mg/dL Invalid Interpretation Code 0.20 - 1.20 mg/dL AH ADM SS Calcium [Mass/Vol] 9.3 mg/dL Invalid Interpretation Code 8.7 - 10.4 mg/dL AH ADM SS Chloride [Moles/Vol] 109 mmol/L Invalid Interpretation Code 98 - 110 mEq/L AH ADM SS CO2 [Moles/Vol] 25 mmol/L Invalid Interpretation Code 22 - 32 mEq/L AH ADM SS Creatinine [Mass/Vol] 0.89 mg/dL Invalid Interpretation Code 0.50 - 1.20 mg/dL AH ADM SS Electrolyte Balance 2.0 mEq/L Invalid Interpretation Code 4.0 - 15.0 mEq/L AH ADM SS Eosinophils (Bld) [#/Vol] 0.00 103/mcL Invalid Interpretation Code 0.00 - 0.65 10^3/mcL AH Remisol SS Eosinophils/100 WBC (Bld) 0.3 % Invalid Interpretation Code 0.0 - 6.0 % AH Remisol SS Erythrocyte distribution width (RBC) [Ratio] 14.2 % Invalid Interpretation Code 11.5 - 15.5 % AH Remisol SS GFR/1.73 sq M.predicted among blacks MDRD (S/P/Bld) [Vol rate/Area] ml/min/1.73sqm Invalid Interpretation Code AH ADM SS GFR/1.73 sq M.predicted among non-blacks MDRD (S/P/Bld) [Vol rate/Area] ml/min/1.73sqm Invalid Interpretation Code ADM SS Globulin 3.0 G/dL Invalid Interpretation Code 1.5 - 3.8 G/dL ADM SS Glucose [Mass/Vol] 126 mg/dL Invalid Interpretation Code 82 - 115 mg/dL AH ADM SS Hematocrit (Bld) [Volume fraction] 45.4 % Invalid Interpretation Code 34.0 - 46.0 % AH Remisol SS Hemoglobin (Bld) [Mass/Vol] 15.6 G/dL Invalid Interpretation Code 12.0 - 16.0 G/dL AH Remisol SS Lymphocytes (Bld) [#/Vol] 0.80 103/mcL Invalid Interpretation Code 0.90 - 4.32 10^3/mcL AH Remisol SS Lymphocytes/100 WBC (Bld) 8.7 % Invalid Interpretation Code 20.0 - 40.0 % AH Remisol SS MCH (RBC) [Entitic mass] 28.8 pg Invalid Interpretation Code 27.0 - 33.0 pg AH Remisol SS MCHC (RBC) [Mass/Vol] 34.3 G/dL Invalid Interpretation Code 32.0 - 36.0 G/dL AH Remisol SS MCV (RBC) [Entitic vol] 84.0 fL Invalid Interpretation Code 80.0 - 99.0 fL AH Remisol SS Monocytes (Bld) [#/Vol] 0.70 103/mcL Invalid Interpretation Code 0.09 - 1.40 10^3/mcL AH Remisol SS Monocytes/100 WBC (Bld) 7.7 % Invalid Interpretation Code 2.0 - 13.0 % AH Remisol SS Neutrophils (Bld) [#/Vol] 7.90 103/mcL Invalid Interpretation Code 2.25 - 8.10 10^3/mcL AH Remisol SS Neutrophils/100 WBC (Bld) 83.1 % Invalid Interpretation Code 50.0 - 75.0 % AH Remisol SS Platelet mean volume (Bld) [Entitic vol] 8.8 fL Invalid Interpretation Code 6.6 - 10.5 fL AH Remisol SS Platelets (Bld) [#/Vol] 189 103/mcL Invalid Interpretation Code 150 - 450 10^3/mcL AH Remisol SS Potassium [Moles/Vol] 4.2 mmol/L Invalid Interpretation Code 3.5 - 5.0 mEq/L AH ADM SS Protein [Mass/Vol] 7.0 G/dL Invalid Interpretation Code 5.7 - 8.2 G/dL AH ADM SS RBC (Bld) [#/Vol] 5.40 106/mcL Invalid Interpretation Code 4.10 - 5.30 10^6/mcL AH Remisol SS Sodium [Moles/Vol] 136 mmol/L Invalid Interpretation Code 136 - 145 mEq/L AH ADM SS Troponin I.cardiac DL <= 0.01 ng/mL [Mass/Vol] ng/L Invalid Interpretation Code 0.00 - 34.00 ng/L AH ADM SS Urea nitrogen [Mass/Vol] 8.0 mg/dL Invalid Interpretation Code 8.0 - 22.0 mg/dL AH ADM SS Urea nitrogen/Creatinine [Mass ratio] 9.0 ratio Invalid Interpretation Code 10.0 - 22.0 ratio AH ADM SS WBC (Bld) [#/Vol] 9.50 103/mcL Invalid Interpretation Code 4.50 - 10.80 10^3/mcL Remisol SS LABORATORYOrdered By: Rola Malone on 11-30-2021 Natriuretic peptide.B prohormone N-Terminal [Mass/Vol] 23 pg/mL Invalid Interpretation Code 0 - 1800 pg/mL Auto Chem SS Comprehensive metabolic 2000 panelon 11-29-2021 Albumin [Mass/Vol] 3.6 g/dL 3.4 - 5.0 g/dL [facility] ALP [Catalytic activity/Vol] 80 U/L 46 - 116 U/L [facility] ALT With P-5'-P [Catalytic activity/Vol] 51 U/L 12 - 78 U/L [facility] Anion gap [Moles/Vol] 9 mmol/L 8 - 16 mmol/L [facility] AST With P-5'-P [Catalytic activity/Vol] 31 U/L 15 - 46 U/L [facility] Bilirubin [Mass/Vol] 0.2 mg/dL 0.2 - 1 .0 mg/dL [facility] Calcium [Mass/Vol] 8.8 mg/dL 8.5 - 10. 1 mg/dL [facility] Chloride [Moles/Vol] 102 mmol/L 98 - 10 7 mmol/L [facility] CO2 [Moles/Vol] 25 mmol/L 21 - 32 mmol/L [facility] Creatinine [Mass/Vol] 0.67 mg/dL 0.51 - 0.95 mg/dL [facility] Estimated Glomerular Filtration Rate 100 mL/min/1.73m >=60 mL/min/1.7 3m [facility] Glucose [Mass/Vol] 264 mg/dL High 70 - 99 mg/dL [facility] Potassium [Moles/Vol] 4.2 mmol/L 3.5 - 5.1 mmol/L [facility] Protein [Mass/Vol] 7.0 g/dL 6.4 - 8.2 g/dL [facility] Sodium [Moles/Vol] 136 mmol/L 136 - 145 mmol/L [facility] Urea nitrogen [Mass/Vol] 10 mg/dL 7 - 18 mg/dL [facility] BD DXA - AXIAL SKELETONon BD DXA - AXIAL SKELETON * * *Final Report* * * DATE OF EXAM: Aug 07 2021 12:03PM [facility] 0804 - BD DXA - AXIAL SKELETON / PROCEDURE REASON: Osteoporosis, unspecified osteoporosis type, unspecified pathological fracture p * * * * Physician Interpretation * * * * PROCEDURE: BD DXA - AXIAL SKELETON INDICATION: Osteoporosis, unspecified osteoporosis type, unspecified pathological fracture presence TECHNIQUE: Low dose AP spine and hip images COMPARISON: LUMBAR SPINE: The bone mineral density from L1 through L4 is 0.882 grams per square centimeter which yields a T-score of -1.5 . . RIGHT HIP: The bone mineral density of the total region of the hip is 0.730 grams per square centimeter which yields a T-score of -1.7 . . RIGHT FEMORAL NECK: The bone mineral density of the femoral neck is 0.538 grams per square centimeter which yields a T-score of -2.8 . . 10-year Fracture Risk (FRAX): Major osteoporotic fracture risk 23 % Hip fracture risk 8.2 % IMPRESSION: Osteoporosis . WORLD HEALTH ORG. CLASSIFICATION OF BONE MASS CLASSIFICATION T-SCORE Normal Greater than -1 Low Bone Mass Between -1 and -2.5 (Osteopenia) Osteoporosis Less than or equal to -2.5 [employer]: AKIL Transcribe Date/Time: Aug 07 2021 12:13P Dictated by : RINA YOST MD This examination was interpreted and the report reviewed and electronically signed by: RINA YOST MD on Aug 07 2021 12:14PM EST [id number] Normal [facility] Office Visiton 01-18-2017 Documentation of current medications (procedure) Done Invalid Interpretation Code [facility] Work Phone: Protein mass conc Done [facility] Work Phone: Tobacco smoking status NHIS Never smoker [facility] Work Phone: Tobacco use CPHS Never smoker Invalid Interpretation Code [facility] Work Phone: Office Visiton 12-12-2016 Documentation of current medications (procedure) Done Invalid Interpretation Code [facility] Work Phone: Tobacco use CPHS Never smoker Invalid Interpretation Code [facility] Work Phone: [phone] Lab Report: Bedside Glucoseo n 11-27-2016 Glucose 123 mg/dL High 70-110 [facility] Work Phone: [phone] Glucose mass conc 123 mg/dL High 70-110 [facility] Work Phone: [phone] Lab Report: Hemoglobin A1con 11-22-2016 HbA1c 7.4 % High 4.2-6.3 [facility] Work Phone: [phone] Lab Report: Partial Thrombop last Timeon 11-22-2016 aPTT 30.9 s Invalid Interpretation Code 24.1-36.2 [facility] Work Phone: [phone] Lab Report: Prothrombin Time w/INRon 11-22-2016 Coagulation tissue factor induced in platelet poor plasma 12.6 s Invalid Interpretation Code 11.7-14.9 [facility] Work Phone: [phone] INR Coag RelTime (PPP) 1.0 {INR} [facility] Work Phone: [phone] INR in blood by coagulation 1.0 {INR} Invalid Interpretation Code [facility] Work Phone: [phone] Office Visiton 11-14-2016 Documentation of current medications (procedure) Done Invalid Interpretation Code [facility] Work Phone: [phone] Tobacco use CPHS Never smoker Invalid Interpretation Code [facility] Work Phone: [phone] Office Visiton 08-27-2016 Documentation of current medications (procedure) Done Invalid Interpretation Code [facility] Work Phone: [phone] Tobacco use CPHS Never smoker Invalid Interpretation Code [facility] Work Phone: [phone] Vital Signs Date Time Vital Sign Value Performing Clinician Facility 09-27-2024 04:39-0400 Body temperature 98 [degF] Dr. Dino Pena MD Work Phone: [phone] [place] [address] 09-27-2024 04:39-0400 Diastolic blood pressure 82 mm[Hg] Dr. Dino Pena MD Work Phone: [phone] [place] [address] 09-27-2024 04:39-0400 Heart rate 72 /min Dr. Dino Pena MD Work Phone: [phone] [place] [address] 09-27-2024 04:39-0400 Respiratory rate 18 /min Dr. Dino Pean MD Work Phone: [phone] [place] [address] 09-27-2024 04:39-0400 SaO2% (BldA) [Mass fraction] 93 % Dr. Dino Pena MD Work Phone: [phone] [place] [address] 09-27-2024 04:39-0400 Systolic blood pressure 160 mm[Hg] Dr. Dino Pena MD Work Phone: [phone] [place] [address] 09-27-2024 01:36-0400 Body height 160.[address] Dino Pena MD Work Phone: [phone] [place] [address] 09-13-2024 04:51-0500 Diastolic blood pressure 61 mm[Hg] Dr. Dino Pena MD Work Phone: [phone] [place] [address] 09-13-2024 04:51-0500 Heart rate 77 /min Dr. Dino Pena MD Work Phone: [phone] [place] [address] 09-13-2024 04:51-0500 Inhaled oxygen flow rate 2 L/min Dr. Dino Pena MD Work Phone: [phone] [place] [address] 09-13-2024 04:51-0500 Respiratory rate 19 /min Dr. Dino Pena MD Work Phone: [phone] [place] [address] 09-13-2024 04:51-0500 SaO2% (BldA) [Mass fraction] 95 % Dr. Dino Pena MD Work Phone: [phone] [place] [address] 09-13-2024 04:51-0500 Systolic blood pressure 111 mm[Hg] Dr. Dino Pena MD Work Phone: [facility] 09-13-2024 00:52-0500 Body temperature 98 [degF] Dr. Dino Pena MD Work Phone: [facility] 09-12-2024 22:06-0500 Body mass index (BMI) [Ratio] 38.1 kg/m2 Dr. Dino Pena MD Work Phone: [facility] 09-12-2024 22:06-0500 Body weight 97.[address] Dino Pena MD Work Phone: [facility] 07-27-2024 13:31-0500 Body temperature 97.7 [degF] [facility] 07-27-2024 13:31-0500 Diastolic blood pressure 74 mm[Hg] [facility] 07-27-2024 13:31-0500 Heart rate 70 /min [facility] 07-27-2024 13:31-0500 Respiratory rate 16 /min [facility] 07-27-2024 13:31-0500 SaO2% (BldA) [Mass fraction] 97 % [facility] 07-27-2024 13:31-0500 Systolic blood pressure 130 mm[Hg] [facility] 11-24-2023 21:43-0400 Body temperature 97.1 [degF] Dr. Chliango Laughlin Work Phone: [facility] 11-24-2023 21:43-0400 Diastolic blood pressure 73 mm[Hg] Dr. Chilango Laughlin Work Phone: [facility] 11-24-2023 21:43-0400 Heart rate 81 /min Dr. Chilango Laughlin Work Phone: [facility] [facility] 11-24-2023 21:43-0400 Respiratory rate 16 /min Dr. Chilango Laughlin Work Phone: [facility] 11-24-2023 21:43-0400 SaO2% (BldA) [Mass fraction] 95 % Dr. Chilango Laughlin Work Phone: [facility] 11-24-2023 21:43-0400 Systolic blood pressure 161 mm[Hg] Dr. Chilango Laughlin Work Phone: [facility] 11-24-2023 16:26-0400 Body height 160.[address] Chilango Laughlin Work Phone: [facility] 11-24-2023 16:26-0400 Body mass index (BMI) [Ratio] 38.7 kg/m2 Dr. Chilango Laughlin Work Phone: [facility] 11-24-2023 16:26-0400 Body weight 99.[address] Chilango Laughlin Work Phone: [facility] 11-21-2023 08:45-0400 Body temperature 96.6 [degF] Dr. Chilango Laughlin Work Phone: [facility] 11-21-2023 08:45-0400 Diastolic blood pressure 72 mm[Hg] Dr. Chilango Laughlin Work Phone: [facility] 11-21-2023 08:45-0400 Heart rate 84 /min Dr. Chilango Laughlin Work Phone: [facility] 11-21-2023 08:45-0400 Respiratory rate 15 /min Dr. Chilango Laughlin Work Phone: [facility] 11-21-2023 08:45-0400 Systolic blood pressure 146 mm[Hg] Dr. Chilango Laughlin Work Phone: [facility] 11-07-2023 09:41-0400 Body temperature 97.5 [degF] Dr. Chilango Laughlin Work Phone: [facility] 11-07-2023 09:41-0400 Diastolic blood pressure 47 mm[Hg] Dr. Chilango Laughlin Work Phone: [facility] 11-07-2023 09:41-0400 Heart rate 67 /min Dr. Chilango Laughlin Work Phone: [facility] 11-07-2023 09:41-0400 Respiratory rate 18 /min Dr. Chilango Laughlin Work Phone: [facility] 11-07-2023 09:41-0400 Systolic blood pressure 111 mm[Hg] Dr. Chilango Laughlin Work Phone: [facility] 10-10-2023 09:50-0400 Body temperature 97.4 [degF] Dr. Chilango Laughlin Work Phone: [facility] 10-10-2023 09:50-0400 Diastolic blood pressure 52 mm[Hg] Dr. Chilango Laughlin Work Phone: [facility] 10-10-2023 09:50-0400 Heart rate 80 /min Dr. Chilango Laughlin Work Phone: [facility] 10-10-2023 09:50-0400 Respiratory rate 18 /min Dr. Chilango Laughlin Work Phone: [facility] 10-10-2023 09:50-0400 Systolic blood pressure 113 mm[Hg] Dr. Chilango Laughlin Work Phone: [facility] 09-20-2023 11:29-0500 Body temperature 97.5 [degF] Chair Bath Work Phone: [facility] 09-20-2023 11:29-0500 Diastolic blood pressure 80 mm[Hg] Chair Bath Work Phone: [facility] 09-20-2023 11:29-0500 Heart rate 86 /min Chair Bath Work Phone: [facility] 09-20-2023 11:29-0500 Respiratory rate 18 /min Chair Bath Work Phone: [facility] 09-20-2023 11:29-0500 SaO2% (BldA) [Mass fraction] 96 % Chair Bath Work Phone: [facility] 09-20-2023 11:29-0500 Systolic blood pressure 129 mm[Hg] Chair Bath Work Phone: [facility] 09-05-2023 09:29-0500 Body temperature 96.3 [degF] Dr. Chilango Laughlin Work Phone: [facility] 09-05-2023 09:29-0500 Diastolic blood pressure 65 mm[Hg] Dr. Chilango Laughlin Work Phone: [facility] 09-05-2023 09:29-0500 Heart rate 77 /min Dr. Chilango Laughlin Work Phone: [facility] 09-05-2023 09:29-0500 Respiratory rate 18 /min Dr. Chilango Laughlin Work Phone: [facility] 09-05-2023 09:29-0500 Systolic blood pressure 132 mm[Hg] Dr. Chilango Laughlin Work Phone: [facility] 08-08-2023 09:02-0500 Body temperature 96.5 [degF] Dr. Chilango Laughlin Work Phone: [facility] 08-08-2023 09:02-0500 Diastolic blood pressure 60 mm[Hg] Dr. Chilango Laughlin Work Phone: [facility] 08-08-2023 09:02-0500 Heart rate 84 /min Dr. Chilango Laughlin Work Phone: [facility] 08-08-2023 09:02-0500 Respiratory rate 20 /min Dr. Chilango Laughlin Work Phone: [facility] 08-08-2023 09:02-0500 Systolic blood pressure 112 mm[Hg] Dr. Chilango Laughlin Work Phone: [facility] 07-11-2023 08:53-0500 Body temperature 96.3 [degF] Dr. Chilango Laughlin Work Phone: [facility] 07-11-2023 08:53-0500 Diastolic blood pressure 62 mm[Hg] Dr. Chilango Laughlin Work Phone: [facility] 07-11-2023 08:53-0500 Heart rate 81 /min Dr. Chilango Laughlin Work Phone: [facility] 07-11-2023 08:53-0500 Respiratory rate 18 /min Dr. Chilango Laughlin Work Phone: [facility] 07-11-2023 08:53-0500 Systolic blood pressure 114 mm[Hg] Dr. Chilango Laughlin Work Phone: [facility] 06-13-2023 09:52-0500 Body temperature 95.6 [degF] Dr. Chilango Laughlin Work Phone: [facility] 06-13-2023 09:52-0500 Diastolic blood pressure 62 mm[Hg] Dr. Chilango Laughlin Work Phone: [facility] 06-13-2023 09:52-0500 Heart rate 97 /min Dr. Chilango Laughlin Work Phone: [facility] 06-13-2023 09:52-0500 Respiratory rate 16 /min Dr. Chilango Laughlin Work Phone: [facility] 06-13-2023 09:52-0500 Systolic blood pressure 142 mm[Hg] Dr. Chilango Laughlin Work Phone: [facility] 05-02-2023 09:16-0400 Body temperature 96.5 [degF] Dr. Bianca Palomares [facility] 05-02-2023 09:16-0400 Diastolic blood pressure 66 mm[Hg] Dr. Bianca Palomares [facility] 05-02-2023 09:16-0400 Heart rate 64 /min Dr. Bianca Palomares [facility] 05-02-2023 09:16-0400 Respiratory rate 16 /min Dr. Bianca Palomares [facility] 05-02-2023 09:16-0400 Systolic blood pressure 135 mm[facility] 09:55-0400 Body temperature 96 [degF] Dr. Bianca Palomares [facility] 04-11-2023 09:55-0400 Diastolic blood pressure 63 mm[Hg[facility] 04-11-2023 09:55-0400 Heart rate 66 /[facility]11[facility] 09:55-0400 Respiratory rate 18 /[facility]-11-[facility] 09:55-0400 Systolic blood pressure 114 mm[Hg[facility] 03-14-2023 09:18-0400 Body temperature 96.8 [degF] Dr. Bianca Palomares [facility] 03-14-2023 09:18-0400 Diastolic blood pressure 66 mm[Hg[facility] 03-14-2023 09:18-0400 Heart rate 73 /[facility] 03-14-2023 09:18-0400 Respiratory rate 18 /[facility] 03-14-2023 09:18-0400 Systolic blood pressure 122 mm[Hg[facility] 03-13-2023 13:01-0400 Body temperature 97 [degF] Chair Bath Work Phone: [facility] 03-13-2023 13:01-0400 Diastolic blood pressure 67 mm[Hg] Chair Bath Work Phone: [facility] 03-13-2023 13:01-0400 Heart rate 72 /min Chair Bath Work Phone: [facility] 03-13-2023 13:01-0400 Respiratory rate 18 /min Chair Bath Work Phone: [facility] 03-13-2023 13:01-0400 Systolic blood pressure 117 mm[Hg] Chair Bath Work Phone: [facility] 02-07-2023 09:16-0400 Body temperature 97 [degF] Dr. Chilango Laughlin Work Phone: [facility] 02-07-2023 09:16-0400 Diastolic blood pressure 55 mm[Hg] Dr. Chilango Laughlin Work Phone: [facility] 02-07-2023 09:16-0400 Heart rate 72 /min Dr. Chilango Laughlin Work Phone: [facility] 02-07-2023 09:16-0400 Respiratory rate 18 /min Dr. Chilango Laughlin Work Phone: [facility] 02-07-2023 09:16-0400 Systolic blood pressure 106 mm[Hg] Dr. Chilango Laughlin Work Phone: [facility] 01-16-2023 12:52-0400 Body temperature 98.2 [degF] Dr. Chilango Laughlin Work Phone: [facility] 01-16-2023 12:52-0400 Diastolic blood pressure 70 mm[Hg] Dr. Chilango Laughlin Work Phone: [facility] 01-16-2023 12:52-0400 Heart rate 64 /min Dr. Chilango Laughlin Work Phone: [facility] 01-16-2023 12:52-0400 Respiratory rate 16 /min Dr. Chilango Laughlin Work Phone: [facility] 01-16-2023 12:52-0400 SaO2% (BldA) [Mass fraction] 96 % Dr. Chilango Laughlin Work Phone: [facility] 01-16-2023 12:52-0400 Systolic blood pressure 112 mm[Hg] Dr. Chilango Laughlin Work Phone: [facility] 01-11-2023 13:25-0400 Body temperature 97.8 [degF] Dr. Chilango Laughlin Work Phone: [facility] 01-11-2023 13:25-0400 Diastolic blood pressure 59 mm[Hg] Dr. Chilango Laughlin Work Phone: [facility] 01-11-2023 13:25-0400 Heart rate 72 /min Dr. Chilango Laughlin Work Phone: [facility] 01-11-2023 13:25-0400 Respiratory rate 18 /min Dr. Chilango Laughlin Work Phone: [facility] 01-11-2023 13:25-0400 Systolic blood pressure 120 mm[Hg] Dr. Chilango Laughlin Work Phone: [facility] 12-06-2022 09:36-0400 Body temperature 96.6 [degF] Dr. Chilango Laughlin Work Phone: [facility] 12-06-2022 09:36-0400 Diastolic blood pressure 72 mm[Hg] Dr. Chilango Laughlin Work Phone: [facility] 12-06-2022 09:36-0400 Heart rate 73 /min Dr. Chilango Laughlin Work Phone: [facility] 12-06-2022 09:36-0400 Respiratory rate 18 /min Dr. Chilango Laughlin Work Phone: [facility] 12-06-2022 09:36-0400 Systolic blood pressure 122 mm[Hg] Dr. Chilango Laughlin Work Phone: [facility] 10-17-2022 05:30-0400 Diastolic Blood Pressure Non-Invasive [address] MAKENNA HYATT MD [facility] 10-17-2022 05:30-0400 Heart rate 75 /min DR MAKENNA HYATT MD [facility] 10-17-2022 05:30-0400 Respiratory rate 18 /min DR MAKENNA HYATT MD [facility] 10-17-2022 05:30-0400 Systolic Blood Pressure Non-Invasive [address] MAKENNA HYATT MD [facility] 10-17-2022 04:05-0400 Body temperature 99.32 [degF] DR MAKENNA HYATT MD [facility] 10-17-2022 04:05-0400 Diastolic Blood Pressure Non-Invasive [address] MAKENNA HYATT MD [facility] 10-17-2022 04:05-0400 Heart rate 72 /min DR MAKENNA HYATT MD [facility] 10-17-2022 04:05-0400 Respiratory rate 18 /min DR MAKENNA HYATT MD [facility] 10-17-2022 04:05-0400 Systolic Blood Pressure Non-Invasive [address] MAKENNA HYATT MD [facility] 09-05-2022 09:41-0500 Diastolic blood pressure 73 mm[Hg] [facility] 09-05-2022 09:41-0500 Heart rate 78 /min [facility] 09-05-2022 09:41-0500 Systolic blood pressure 131 mm[Hg] [facility] 04-28-2022 17:23-0400 Body temperature 98.6 [degF] TAVIA NORRIS MD [facility] 04-28-2022 17:23-0400 Diastolic blood pressure 49 mm[Hg] TAVIA NORRIS MD [facility] 04-28-2022 17:23-0400 Heart rate 71 /min TAVIA NORRIS MD [facility] 04-28-2022 17:23-0400 Respiratory rate 18 /min TAVIA NORRIS MD [facility] 04-28-2022 17:23-0400 Systolic blood pressure 179 mm[Hg] TAVIA NORRIS MD [facility] 03-07-2022 09:32-0400 Body temperature 98.2 [degF] Bed Bath Work Phone: [facility] 03-07-2022 09:32-0400 Body weight 91.4 kg Bed Bath Work Phone: [facility] 03-07-2022 09:32-0400 Diastolic blood pressure 76 mm[Hg] Bed Bath Work Phone: [facility] 03-07-2022 09:32-0400 Heart rate 69 /min Bed Bath Work Phone: [facility] 03-07-2022 09:32-0400 Respiratory rate 18 /min Bed Bath Work Phone: [facility] 03-07-2022 09:32-0400 Systolic blood pressure 125 mm[Hg] Bed Bath Work Phone: [facility] 01-31-2022 08:52-0400 Body temperature 97.7 [degF] Berenice Barile PA-C Work Phone: [facility] 01-31-2022 08:52-0400 Diastolic blood pressure 76 mm[Hg] Berenice Barile PA-C Work Phone: [facility] 01-31-2022 08:52-0400 Heart rate 78 /min Berenice Barile PA-C Work Phone: [facility] 01-31-2022 08:52-0400 SaO2% (BldA) [Mass fraction] 92 % Berenice Edmond PA-C Work Phone: [facility] 01-31-2022 08:52-0400 Systolic blood pressure 120 mm[Hg] Berenice Edmnod PA-C Work Phone: [facility] 12-13-2021 09:33-0400 Diastolic blood pressure 58 mm[Hg] Ronaldo Villarreal MD Work Phone: [facility] 12-13-2021 09:33-0400 Heart rate 86 /min Ronaldo Villarreal MD Work Phone: [facility] 12-13-2021 09:33-0400 Respiratory rate 15 /min Ronaldo Villarreal MD Work Phone: [facility] 12-13-2021 09:33-0400 SaO2% (BldA) [Mass fraction] 98 % Ronaldo Villarreal MD Work Phone: [facility] 12-13-2021 09:33-0400 Systolic blood pressure 133 mm[Hg] Ronaldo Villarreal MD Work Phone: [facility] 12-01-2021 05:50-0400 Diastolic blood pressure 57 mm[Hg] LANA ZAPIEN DO [facility] 12-01-2021 05:50-0400 Heart rate 94 /min LANA ZAPIEN DO [facility] 12-01-2021 05:50-0400 Respiratory rate 15 /min LANA ZAPIEN DO [facility] 12-01-2021 05:50-0400 Systolic blood pressure 116 mm[Hg] LANA ZAPIEN DO [facility] 12-01-2021 02:13-0400 Body temperature 100.04 [degF] LANA ZAPIEN DO [facility] 12-01-2021 02:13-0400 Diastolic blood pressure 77 mm[Hg] LANA ZAPIEN DO [facility] 12-01-2021 02:13-0400 Heart rate 104 /min LANA ZAPIEN DO [facility] 12-01-2021 02:13-0400 Respiratory rate 18 /min LANA ZAPIEN DO [facility] 12-01-2021 02:13-0400 Systolic blood pressure 151 mm[Hg] LANA ZAPIEN DO [facility] 11-30-2021 20:11-0400 Diastolic blood pressure 56 mm[Hg] LANA ZAPIEN DO [facility] 11-30-2021 20:11-0400 Heart rate 93 /min LANA ZAPIEN DO [facility] 11-30-2021 20:11-0400 Systolic blood pressure 92 mm[Hg] LANA ZAPIEN DO [facility] 11-30-2021 18:28-0400 Body temperature 100.4 [degF] LANA ZAPIEN DO [facility] 11-30-2021 18:28-0400 Body weight 87.3 kg LANA ZAPIEN DO [facility] 11-30-2021 18:28-0400 Heart rate 114 /min LANA ZAPIEN DO [facility] 11-30-2021 18:28-0400 Respiratory rate 20 /min LANA ZAPIEN DO [facility] 11-29-2021 13:15-0400 Body temperature 97.2 [degF] Chair Bath Work Phone: [facility] 11-29-2021 13:15-0400 Diastolic blood pressure 73 mm[Hg] Chair Bath Work Phone: [facility] 11-29-2021 13:15-0400 Heart rate 82 /min Chair Bath Work Phone: [facility] 11-29-2021 13:15-0400 Respiratory rate 20 /min Chair Bath Work Phone: [facility] 11-29-2021 13:15-0400 Systolic blood pressure 116 mm[Hg] Chair Bath Work Phone: [facility] 03-23-2016 14:49-0400 Weight 78.47 kg Sandra Loomis [facility] Work Phone: Encounters Encounter Date Encounter Type Care Provider Facility Start: 01-21-2025 ambulatory Fer Simmons Facility :[facility] Start: 11-20-2024 End: 11-20-2024 ambulatory Gianna Nelson Facility:[facility] Start: 10-01-2024 End: 10-01-2024 ambulatory MAULIK العلي DO Facility:A Start: 10-01-2024 End: 10-01-2024 Patient encounter procedure MAULIK العلي DO [facility] Start: 09-27-2024 End: 09-27-2024 Emergency department patient visit Dr. Dino Pena MD Work Phone: -Emergency Department Work Phone: Start: 09-12-2024 End: 09-13-2024 Emergency department patient visit Dr. 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 (Primary Dx) Start: 07-27-2024 End: 07-27-2024 ambulatory Chair 3 Infusion [facility] Start: 07-16-2024 End: 07-16-2024 Telephone encounter Funmilayo Pope MD Work Phone: [facility] Arthritis & Rheumatology Comment on above: Medication Preauthor ization ([employer]- [facility] Approved [id number] [facility] Medicare/Portal 07.15.24-07.15.25 2 visits) Start: 06-04-2024 End: 06-04-2024 ambulatory PHY WO ID REFERRING Facility:[facility] Start: 06-04-2024 End: 06-04-2024 Patient encounter procedure PHY WO ID REFERRING [facility] Start: 04-08-2024 End: 04-08-2024 Emergency department patient visit [place] Facility:[facility] Start: 03-25-20[facility] Start: 03-23-2024 End: 03-23-2024 Telephone encounter Funmilayo Pope MD Work Phone: [facility] Comment on above: Appointment Start: 03-21-2024 End: 03-22-2024 Emergency department patient visit Oswaldo Lo Facility:[facility] Start: 02-20-2024 End: 03-14-2024 ambulatory Bianca Gudla Facility:[facility] Start: 02-12-2024 ambulatory Beata Liao Facility:[facility] Start: 02-07-2024 End: 02-07-2024 ambulatory Lauren Ruelas Facility:[facility] Start: 02-06-2024 End: 02-12-2024 ambulatory Karthikeyan Grove Facility:[facility] Start: 11-24-2023 End: 11-24-2023 Emergency department patient visit Dr. Chilango Laughlin Work Phone: [facility]-Emergency Department Work Phone: Start: 11-21-[address] Brenda Laughlin [facility]: [facility] Work Phone: Start: 11-07-2023 End: 11-12-[address] Chilango Laughlin Work Phone: [facility] Work Phone: Start: 11-07-2023 End: 11-12-[address] Chilango Laughlin [facility] Work Phone: Start: 10-11-2023 End: 10-11-[address] Chilango Laughlin Work Phone: [facility] Work Phone: Start: 10-11-2023 End: 10-11-[address] Chilango Laughlin Work Phone: [facility] Work Phone: Start: 10-10-2023 End: 10-13-[address] Chilango Laughlin Work Phone: [facility] Work Phone: Start: 10-10-2023 End: 10-13-[address] Chilango Laughlin Work Phone: [facility] Work Phone: Start: 10-04-2023 End: 10-05-2023 ambulatory MAULIK العلي Facility:[facility] Start: 10-04-2023 End: 10-04-2023 Patient encounter procedure MAULIK العلي DO [facility] Start: 09-26-2023 Non-patient / Non-visit Dr. Anais Laughlin Work Phone: [facility] Work Phone: Start: 09-23-2023 End: 09-24-2023 ambulatory MAULIK LOBOODETTE Facility:A Start: 09-20-2023 End: 09-20-2023 ambulatory Chair 3 [facility] Work Phone: Hematology/Oncology Comment on above: Other osteoporosis w ithout current pathological fracture (Primary Dx) Start: 09-19-2023 Non-patient / Non-visit Dr. Anais Laughlin Work Phone: [facility] Work Phone: Start: 09-10-2023 Telephone encounter Funmilayo colunga MD Work Phone: [facility] Comment on above: Results Start: 09-05-2023 Non-patient / Non-visit Dr. Anais Laughlin Work Phone: [facility] Work Phone: Start: 09-05-2023 End: 09-12-[address] Chilango Laughlin Work Phone: [facility] Work Phone: Start: 09-05-2023 End: 09-12-[address] Chilango Laughlin Work Phone: [facility] Work Phone: Start: 08-29-2023 Non-patient / Non-visit Dr. Anais Laughlin Work Phone: [facility] Work Phone: Start: 08-22-2023 Non-patient / Non-visit Dr. Anais Laughlin Work Phone: [facility] Work Phone: Start: 08-15-2023 Non-patient / Non-visit Dr. Anais Laughlin Work Phone: [facility] Work Phone: Start: 08-08-2023 Non-patient / Non-visit Dr. Anais Laughlin Work Phone: [facility] Work Phone: Start: 08-08-2023 End: 08-14-[address] Chilango Laughlin Work Phone: [facility] Work Phone: Start: 08-08-2023 End: 08-14-[address] Chilango Laughlin Work Phone: [facility] Work Phone: Start: 08-01-2023 Non-patient / Non-visit Dr. Anais Laughlin Work Phone: [facility] Work Phone: Start: 07-25-2023 Non-patient / Non-visit Dr. Anais Laughlin Work Phone: [facility] Work Phone: Start: 07-11-2023 Non-patient / Non-visit Dr. Anais Laughlin Work Phone: [facility] Work Phone: Start: 07-11-2023 End: 07-14-[address] Chilango Laughlin Work Phone: [facility] Work Phone: Start: 07-11-2023 End: 07-14-[address] Chilango Laughlin Work Phone: [facility] Work Phone: Start: 06-13-2023 Non-patient / Non-visit Dr. Anais Laughlin Work Phone: [facility] Work Phone: Start: 06-13-2023 End: 06-13-[address] Chilango Laughlin Work Phone: [facility] Work Phone: Start: 06-13-2023 End: 06-13-[address] Chilango Laughlin Work Phone: [facility] Work Phone: Start: 05-30-2023 Non-patient / Non-visit Dr. Anais Laughlin Work Phone: [facility] Work Phone: Start: 05-23-2023 Non-patient / Non-visit Dr. Anais Laughlin Work Phone: [facility] Work Phone: Start: 05-16-2023 Non-patient / Non-visit Dr. Anais Laughlin Work Phone: [facility] Work Phone: Start: 05-02-2023 Non-patient / Non-visit Dr. Bianca sigala [facility] Work Phone: Start: 05-02-2023 End: 05-14-[address] Bianca Palomares [facility] Work Phone: Start: 05-02-2023 End: 05-14-[address] Bianca Palomares [facility] Work Phone: Start: 04-25-2023 Non-patient / Non-visit Dr. Bianca sigala [facility] Work Phone: Start: 04-18-2023 Non-patient / Non-visit Dr. Bianca sigala [facility] Work Phone: Start: 04-11-2023 Non-patient / Non-visit Dr. Bianca sigala [facility] Work Phone: Start: 04-11-2023 End: 04-13-[address] Bianca Palomares [facility] Work Phone: Start: 04-05-2023 End: 04-05-[address] Bianca Palomares [facility] Work Phone: Start: 04-04-2023 Non-patient / Non-visit [facility]. Bianca [facility] Work Phone: Start: 03-28-2023 Non-patient / Non-visit Dr. Bianca [facility] Work Phone: Start: 03-26-2023 Telephone encounter Funmilayo colunga MD Work Phone: [facility] Arthritis & Rheumatology Comment on above: APPROVED ([employer] ([facility]) APPROVED [id number] 03.26.23 - 03.26.24 for 2 visits [facility] Medicare/Portal) Start: 03-21-2023 Non-patient / Non-visit Dr. Bianca [facility] Work Phone: Start: 03-14-2023 Non-patient / Non-visit Dr. Bianca [facility] Work Phone: Start: 03-14-2023 End: 03-14-[address] Bianca Palomares [facility] Work Phone: Start: 03-13-2023 Telephone encounter Self Hem atology/Oncology Start: 03-13-2023 End: 03-13-2023 ambulatory Chair 7 [facility] Work Phone: Hematology/Oncology Comment on above: Osteoporosis, unspec ified osteoporosis type, unspecified pathological fracture presence (Primary Dx) Start: 03-07-2023 Non-patient / Non-visit Dr. Bianca sigala [facility] Work Phone: Start: 03-06-2023 Telephone encounter Funmilayo colunga MD Work Phone: [facility] General Rheumatology and Arthritis Comment on above: Orders Start: 03-01-2023 End: 03-01-[address] Bianca Palomares [facility] Work Phone: Start: 02-21-2023 Non-patient / Non-visit Dr. Bianca sigala [facility] Work Phone: Start: 02-08-2023 End: 02-08-[address] Chilango Laughlin Work Phone: [facility] Work Phone: Start: 02-07-2023 Non-patient / Non-visit Dr. Anais Laughlin Work Phone: [facility] Work Phone: Start: 02-07-2023 End: 02-11-[address] Chilango Laughlin Work Phone: [facility] Work Phone: Start: 02-07-2023 End: 02-11-[address] Chilango Laughlin Work Phone: [facility] Work Phone: Start: 01-31-2023 Non-patient / Non-visit Dr. Anais Laughlin Work Phone: [facility] Work Phone: Start: 01-24-2023 Non-patient / Non-visit Dr. Anais Laughlin Work Phone: [facility] Work Phone: Start: 01-18-2023 End: 01-18-[address] Chilango Laughlin Work Phone: [facility] Work Phone: Start: 01-17-2023 Non-patient / Non-visit Dr. Anais Laughlin Work Phone: [facility] Work Phone: Start: 01-16-2023 End: 01-16-[address] Chilango Laughlin Work Phone: [facility] Vascular Surgery Work Phone: Start: 01-11-2023 Non-patient / Non-visit Dr. Anais Laughlin Work Phone: [facility] Start: 01-11-2023 End: 01-11-[address] Chilango Laughlin Work Phone: [facility] Work Phone: Start: 01-11-2023 End: 01-11-[address] Chilango Laughlin Work Phone: [facility] Work Phone: Start: 01-03-2023 Non-patient / Non-visit Dr. Anais Laughlin Work Phone: [facility] Work Phone: Start: 01-02-2023 End: 01-02-[address] Chilango Laughlin Work Phone: [facility] Work Phone: Start: 12-20-2022 Non-patient / Non-visit Dr. Anais Laughlin Work Phone: [facility] Work Phone: Start: 12-18-2022 End: 12-18-[address] Chilango Laughlin Work Phone: [facility] Work Phone: Start: 12-13-2022 Non-patient / Non-visit Dr. Anais Laughlin Work Phone: [facility] Work Phone: Start: 12-06-2022 Non-patient / Non-visit Dr. Anais Laughlin Work Phone: [facility] Start: 12-06-2022 End: 12-12-[address] Chilango Laughlin Work Phone: [facility] Work Phone: Start: 12-06-2022 End: 12-12-[address] Chilango Laughlin Work Phone: [facility] Start: 11-29-2022 Non-patient / Non-visit Dr. Anais Laughlin Work Phone: [facility] Start: 11-22-2022 Non-patient / Non-visit Dr. Anais Laughlin Work Phone: [facility] Start: 10-17-2022 End: 10-17-2022 Emergency department patient visit DR MAKENNA HYATT MD Facility:B Start: 10-17-2022 End: 10-17-2022 Emergency department patient visit DR MAKENNA HYATT MD [facility] Start: 09-13-2022 End: 09-13-2022 Patient encounter procedure Funmilayo Pope MD Work Phone: [facility] General Rheumatology and Arthritis Comment on above: Low back pain, unspe cified back pain laterality, unspecified chronicity, unspecified whether sciatica present (Primary Dx); Pain in both lower extremities; Osteoporosis, unspecified osteoporosis type, unspecified pathological fracture presence Start: 09-05-2022 End: 09-05-2022 ambulatory Chair 1 [facility] Hematology/Oncology Comment on above: Other osteoporosis w ithout current pathological fracture (Primary Dx) Start: 05-04-2022 End: 05-04-2022 Patient encounter procedure CHAKA BURGESS JOSE REFERRING [facility] Start: 04-28-2022 End: 04-28-2022 Emergency department patient visit TAVIA NORRIS MD [facility] Start: 03-07-2022 End: 03-07-2022 ambulatory Bed 1 [facility] Work Phone: Hematology/Oncology Comment on above: Other osteoporosis w ithout current pathological fracture (Primary Dx) Start: 01-31-2022 Telephone encounter Berenice gamez PA-C Work Phone: [facility] Comment on above: Medication Authoriza tion (Prolia - NO PA REQ for medicare B ) Start: 01-31-2022 End: 01-31-2022 Patient encounter procedure Berenice Edmond PA-C Work Phone: [facility] Comment on above: Other osteoporosis w ithout current pathological fracture (Primary Dx); Primary osteoarthritis involving multiple joints; Vitamin D deficiency Start: 01-08-2022 End: 01-08-2022 Patient encounter procedure [facility], [facility] Start: 12-13-2021 End: 12-13-2021 ambulatory Ronaldo Villarreal MD Work Phone: [facility] Comment on above: Procedure Start: 12-13-2021 End: 12-13-2021 Patient encounter procedure Ronaldo Villarreal MD Work Phone: [facility] Start: 11-30-2021 End: 12-01-2021 Emergency department patient visit LANA ZAPIEN DO [facility] Start: 11-29-2021 End: 11-29-2021 ambulatory Chair 6 [facility] Work Phone: Hematology/Oncology Comment on above: Other osteoporosis w ithout current pathological fracture (Primary Dx) Start: 11-21-2021 End: 11-21-2021 ambulatory Luis Pagan DO Work Phone: [facility] Start: 11-21-2021 End: 11-21-2021 Patient encounter procedure Luis Pagan DO Work Phone: [facility] Start: 11-09-2021 Telephone encounter Ronaldo Villarreal MD [facility] Comment on above: Patient Update (NEW PHONE NUMBER) Start: 10-17-2021 Telephone encounter Funmilayo colunga MD Work Phone: [facility] General Rheumatology and Arthritis Comment on above: Medication Follow-up Start: 01-01-2017 Ambulatory [facility] Procedures Date Procedure Procedure Detail Performing Clinician Start: 09-27-2024 CT of abdomen and pe lvis without contrast Dr. Dino Pena MD Work Phone: Start: 09-12-2024 CT of abdomen and pe lvis without contrast Dr. Dino Pena MD Work Phone: Start: 11-24-2023 Plain chest X-ray Dr. Ifeanyi Laughlin Work Phone: Start: 11-24-2023 CT of abdomen and pe lvis without contrast Dr. Chilango Laughlin Work Phone: Start: 10-11-2023 MRI of joint of lowe r extremity Dr. Chilango Laughlin Work Phone: Start: 09-26-[address] Chilango Laughlin Work Phone: Start: 09-26-2023 Investigation of transfusion reaction Dr. Chilango Laughlin Work Phone: Start: 09-26-2023 Microbial culture, routine Dr. Chilango Laughlin Work Phone: Start: 09-26-[address] Andreas Laughlin Work Phone: Start: 09-26-2023 X-ray of both feet Dr. Chilango Laughlin Work Phone: Start: 08-22-[address] Chilango Laughlin Work Phone: Start: 08-22-2023 Investigation of transfusion reaction Dr. Chilango Laughlin Work Phone: Start: 08-22-2023 Microbial culture, routine Dr. Chilango Laughlin Work Phone: Start: 07-18-[address] Chilango Laughlin Work Phone: Start: 07-18-2023 Investigation of transfusion reaction Dr. Chilango Laughlin Work Phone: Start: 07-18-2023 Microbial culture, routine Dr. Chilango Laughlin Work Phone: Start: 03-01-[address] Andreas Palomares Start: 02-08-[address] Andreas Laughlin Work Phone: Start: 01-18-[address] Andreas Laughlin Work Phone: Start: 01-02-[address] Andreas Laughlin Work Phone: Start: 12-18-[address] Andreas Laughlin Work Phone: Start: 11-22-[address] Chilango Laughlin Work Phone: Start: 11-22-2022 Investigation of transfusion reaction Dr. Chilango Laughlin Work Phone: Start: 11-22-2022 Microbial culture, routine Dr. Chilango Laughlin Work Phone: Start: 01-08-2022 X-ray of cervical spine Start: 01-08-2022 X-ray of lumbar spin e, two or three views Start: 12-13-2021 Gluc bld gluc mntr d ev cleared fda spec home use Ronaldo Villarreal MD Work Phone: Start: 11-29-2021 Comprehensive metabo lic panel Funmilayo Pope MD Work Phone: Start: 05-11-2021 Adult depression scr eening assessment Funmilayo Pope MD Work Phone: Start: 09-05-2016 End: 09-05-2017 Physical Therapy [facility] Work Phone: Start: 08-01-2016 End: 08-01-2017 Physical Therapy [facility] Work Phone: Start: 07-27-2016 End: 11-23-2016 Ct upper extremity w/o dye [facility] [place] Nilay stevenson Work Phone: Start: 06-22-2016 End: 06-28-2016 Drain/inject, joint/bursa [facility] Work Phone: Start: 05-16-2016 End: 05-16-2017 Physical Therapy General [facility] Work Phone: Start: 05-03-2016 End: 11-23-2016 X-ray exam of collar bone [facility] Work Phone: Start: 03-23-2016 End: 11-23-2016 X-ray exam of collar bone [facility] Work Phone: Start: 04-21-2013 Mammography Funmilayo colunga MD Work Phone: Start: 12-23-2007 Colonoscopy Funmilayo colunga MD Work Phone: Anaerobic microbial culture Dr. Chilango Laughlin Work Phone: Investigation of transfusion reaction Dr. Chilango Laughlin Work Phone: Microbial culture, routine D marya Laughlin Work Phone: None (qualifier value) TAVIA NORRIS MD Plan of Treatment Date Care Activity Detail Author Start: 01-25-2025 End: 01-25-2025 Patient encounter procedure 01/25/2025 2:00 PM EDT [facility] [address] [place] [address] //// prolia [facility] Comment on above: //// prolia Start: 09-27-2024 [facility] Start: 09-13-2024 [facility] Start: 07-27-2024 End: 07-27-2024 Patient encounter procedure 07/27/2024 1:30 PM EST [facility] [address] [place] [address] * prolia [facility] Comment on above: * [facility] Start: 03-15-2024 Covid-19 Vaccine ( season) Covid-19 Vaccine () [facility] Start: 03-15-2024 Covid-19 Vaccine ( season) Covid-19 Vaccine ( season) [facility] Start: 03-15-2024 Influenza vaccination Influenza Vacc ine (#1) [facility] Start: 11-24-2023 [facility] Start: 11-24-2023 [facility] Start: 11-24-2023 Brain natriuretic peptide measurement [facility] Start: 07-15-2023 Depression Assessment Depression Ass essment [facility] Start: 03-15-2023 Covid-19 Vaccine ( season) Covid-19 Vaccine ( season) [facility] Start: 03-15-2023 Influenza vaccination C [employer] [facility] Start: 01-31-2023 BP CONTROLLED (<130/80) BP CONTROLLE D (<130/80) [facility] Start: 07-15-2022 DEPRESSION ASSESSMENT DEPRESSION ASS ESSMENT [facility] Start: 05-31-2022 BP CONTROLLED (<130/80) BP CONTROLLE D (<130/80) [facility] Start: 05-11-2022 Adult depression screening assessment DEPRESSION SCREENING [facility] Start: 03-15-2022 Influenza vaccination C [employer] [facility] Start: 02-28-2022 Hepatitis B screening URINE ALBUMIN:CREATININE RATIO [facility] Start: 01-31-2022 End: 04-02-2022 25-hydroxyvitamin D3 [Mass/volume] in Serum or Plasma VITAMIN D 25 HYDROXY Lab Routine Vitamin D deficiency Expected: 01/31/2022, Expires: 04/02/2022 [facility] Work Phone: Comment on above: Expected: 01/31/2022 , Expires: 04/02/2022 Start: 2021 RSV Vaccine (1 - 1-d ose 60+ series) RSV Vaccine (1 - 1-dose 60+ series) [facility] Start: 2021 RSV Vaccine (1 - Ris k 60-74 years 1-dose series) RSV Vaccine (1 - Risk 60-74 years 1-dose series) [facility] Start: 01-14-2021 COVID-19 VACCINE (3 - Booster for Pfizer series) COVID-19 VACCINE (3 - Booster for Pfizer series) [facility] Start: 10-12-2020 COVID-19 VACCINE (3 - Booster for Pfizer series) COVID-19 VACCINE (3 - Booster for Pfizer series) [facility] Start: 10-12-2020 COVID-19 VACCINE (3 - Pfizer series) COVID-19 VACCINE (3 - Pfizer series) [facility] Start: 12-22-2017 Colonoscopy COLONOSCOPY [facility] Start: 12-22-2017 COLORECTAL CANCER SCREENING COLORECTAL CANCER SCREENING [facility] Start: 12-22-2017 Screening for malign ant neoplasm of colon [facility] Start: 02-28-2017 End: 02-28-2017 Appointment Appointment [facility] Work Phone: Start: 01-18-2017 End: 01-18-2017 Appointment Appointment [facility] Work Phone: Start: 12-19-2016 End: 12-19-2016 Physical Therapy General [facility], [address] [place] [address], [id number] [facility] Work Phone: Start: 12-12-2016 End: 12-12-2016 Appointment Appointment [facility] Work Phone: Start: 11-27-2016 End: 11-27-2016 Appointment Appointment [facility] Work Phone: Start: 11-14-2016 End: 11-14-2016 Appointment Appointment [facility] Work Phone: Start: 09-05-2016 End: 09-05-2016 Physical Therapy General Physical Therapy [facility], [address] [place] [address], [id number] [facility] Work Phone: Start: 08-01-2016 End: 08-01-2016 Physical Therapy General [facility], [address] [place] [address], [address] [facility] Work Phone: Start: 07-27-2016 End: 11-23-2016 Ct upper extremity w/o dye CT Upper Extremity [facility] Work Phone: Start: 05-16-2016 End: 06-27-2016 Physical Therapy General [facility], [address] [place] [address], [id number] [facility] Work Phone: Start: 05-03-2016 End: 11-23-2016 X-ray exam of collar bone X-Ray, Clavicle [facility] Work Phone: Start: 03-23-2016 End: 11-23-2016 X-ray exam of collar bone X-Ray, Clavicle [facility] Work Phone: Start: 08-12-2015 Hepatitis B surface antibody level LDL CHOLESTEROL [facility] Start: 07-03-2015 Glaucoma screening Dilated Retinal E xam [facility] Start: 07-03-2015 Hepatitis C antibody , confirmatory test DILATED RETINAL EXAM [facility] Start: 11-16-2014 3 comp foot exam completed DIABETIC FOOT EXAM [facility] Start: 11-16-2014 Diabetic foot examination Diabetic Foot Exam [facility] Start: 11-10-2014 Hemoglobin A1c measurement HbA1C [facility] Start: 11-10-2014 Hemoglobin A1c/Hemoglobin.total in Blood HBA1C [facility] Start: 11-09-2014 Hepatitis B screening Urine Albumin:Creatinine Ratio [facility] Start: 04-21-2014 Mammography [facility] Start: 04-21-2014 Screening for malign ant neoplasm of breast Mammogram Screening [facility] Start: 10-07-2011 SHINGRIX VACCINE (1 of 2) SHINGRIX VACCINE (1 of 2) [facility] Start: 04-21-2008 PNEUMOCOCCAL (2 - PCV) PNEUMOCOCCAL (2 - PCV) [facility] Start: 04-21-2008 Pneumococcal vaccination [facility] Start: 04-21-2008 Pneumococcal Vaccine : 50+ (2 of 2 - PCV) Pneumococcal Vaccine: 50+ (2 of 2 - PCV) [facility] Start: 2006 COLOGUARD (FIT-DNA) COLOGUARD (FIT-D NA) [facility] Start: [address] COLONOGRAPHY [facility] Start: 2006 FECAL OCCULT BLOOD FECAL OCCULT BLOO D [facility] Start: 2006 Screening for malign ant neoplasm of colon [facility] Start: 2006 SIGMOIDOSCOPY SIGMOIDOSCOPY [facility] Start: 12-14-2004 Urine microalbumin profile [facility] Start: 10-07-1979 ANNUAL PCP TEAM SPRAY STAINER JIM DISEASE VISIT ANNUAL PCP TEAM CHRONIC DISEASE VISIT [facility] Start: 10-07-1979 Anxiety Screening Anxiety Screening [facility] Start: 10-07-1979 BP CONTROLLED (<130/80) BP CONTROLLE D (<130/80) [facility] Start: 10-07-1979 Depression Screening Depression Scre ening [facility] Start: 10-07-1979 HIV SCREENING HIV SCREENING [facility] Start: 10-07-1979 HIV screening HIV Screening [facility] End: 09-13-2023 25-hydroxyvitamin D3 [Mass/volume] in Serum or Plasma VITAMIN D 25 HYDROXY Lab Routine Osteoporosis, unspecified osteoporosis type, unspecified pathological fracture presence 2 Occurrences starting 09/13/2022 until 09/13/2023 [facility] Work Phone: Comment on above: 2 Occurrences starti ng 09/13/2022 until 09/13/2023 End: 09-13-2023 Comprehensive metabolic 2000 panel - Serum or Plasma COMP METABOLIC PANEL Lab Routine Osteoporosis, unspecified osteoporosis type, unspecified pathological fracture presence 2 Occurrences starting 09/13/2022 until 09/13/2023 [facility] Work Phone: Comment on above: 2 Occurrences starti ng 09/13/2022 until 09/13/2023 Injection single/certified performance technologist trigger point 3/> muscles TRIGGER POINT INJECTION MULTI 3+ MUSCLE GRP Procedures Routine Myofascial pain Ordered: 12/13/2021 [facility] Work Phone: Comment on above: Ordered: 12/13/2021 End: 09-13-2023 Parathyrin.intact [Mass/volume] in Serum or Plasma PTH INTACT BLD Lab Routine Osteoporosis, unspecified osteoporosis type, unspecified pathological fracture presence 2 Occurrences starting 09/13/2022 until 09/13/2023 [facility] Work Phone: Comment on above: 2 Occurrences starti ng 09/13/2022 until 09/13/2023 Patient Education [facility] Work Phone: Patient referral [facility] Work Phone: [facility] Immunizations Immunization Date Immunization Notes Care Provider [facility] 03-12-2017 influenza virus vacc ine, unspecified formulation Funmilayo Pope MD Work Phone: [facility] 04-22-2014 influenza, seasonal, injectable Funmilayo Pope MD Work Phone: [facility] 04-13-2013 influenza virus vacc ine, unspecified formulation Funmilayo Pope MD Work Phone: [facility] Work Phone: 05-13-2012 influenza virus vacc ine, unspecified formulation Funmilayo Pope MD Work Phone: [facility] 05-09-2010 influenza virus vacc ine, unspecified formulation Funmilayo Pope MD Work Phone: [facility] Work Phone: 05-15-2007 influenza virus vacc ine, unspecified formulation Funmilayo Pope MD Work Phone: [facility] Work Phone: 04-21-2007 pneumococcal polysaccharide vaccine, 23 valent Funmilayo Pope MD Work Phone: [facility] Work Phone: 05-10-2006 influenza virus vacc ine, unspecified formulation Funmilayo Pope MD Work Phone: [facility] Work Phone: 12-13-2004 tetanus and diphther ia toxoids, adsorbed, preservative free, for adult use (2 Lf of tetanus toxoid and 2 Lf of diphtheria toxoid) Funmilayo Pope MD Work Phone: [facility] Work Phone: Payers Date Payer Category Payer Unknown [id number] 2024 Self-pay [id number] 2023 Unknown [id number] 2022 Unknown [id number] 2015 Medicaid [facility] MEDICAID [id number] 2015-Present [phone] [address] [place] [address] Medicaid [id number] 2015 Medicaid [facility] MEDICAID [id number] 2015-Present [phone] [address] [place] [address] Medicaid [id number] 2015 Unknown [id number] 2003 Medicare MEDICARE MEDICAR E A AND B [id number] 2003-Present [phone] [address] [address] [place] [address] Medicare [id number] 2003 Medicare [id number] 1961 Unknown [id number] 1961 Unknown [id number] 1961 Unknown [id number] 1961 Unknown [id number] 1961 Unknown [id number] Medicare [id number] Unknown [id number] Unknown [id number] Unknown [id number] Unknown [id number] Unknown [id number] Unknown [id number] Unknown [id number] Unknown [id number] Unknown [id number] Unknown [id number] [id number] Unknown [id number] Social History Date Type Detail Facility Start: 02-28-2021 End: 09-27-2024 Tobacco smoking status MNIS Smokes tobacco daily [facility] Start: 09-12-1994 End: 09-12-2013 History of tobacco use Cigarette Smoker [facility] Start: 02-28-2021 End: 03-13-2023 Cigarettes smoked current (pack per day) - Reported 0.5 [facility] Start: 02-28-2021 Tobacco use and exposure Smoke less tobacco non-user [facility] Start: 09-13-2021 End: 02-28-2022 Alcohol intake Current non-drinker of alcohol (finding) [facility] Start: 02-28-2021 Tobacco Comment ten cig daily currently, off and on for 19 yrs [facility] Start: 1960 Sex Assigned At Not on file C [employer] [facility] Start: 11-11-2021 End: 03-07-2022 Exposure to SARS-CoV-2 (event) Not sure [facility] Start: 01-17-2019 Tobacco smoking status Heavy t obacco smoker (finding) [facility] Start: 1960 Sex Assigned At Female A [facility] Start: 07-29-2021 End: 11-24-2023 Tobacco smoking status NHIS Unknown if ever smoked [facility] Start: 03-08-2019 None [facility] Start: 12-01-2020 Alone [facility] Start: 03-08-2019 Cigarettes [facility] Start: 02-28-2022 End: 03-13-2023 Tobacco use panel [facility] Adult Depression Screening Assessment 5 [facility] Sexual Orientation [employer] Start: 01-07-2019 End: 09-27-2024 Sex Female (finding) [facility] Medical Equipment Procedure Code Equipment Code Equipment Origin al Text Equipment Identifier Dates Replacement of battery of baclofen pump SYNCHROMED PAIN PUMP FDA Start: 02-07-2024 Test Blood sugar 3x daily. 250.02, insulin dep [id number] Start: 11-17-2009 Comment on above: Test Blood sugar 3x daily. 250.02, insulin dep 5.0MM TI LOCKING SCREW FDA Start: 03-10-2019 TFNA FENESTRATED HELICAL BLADE FDA Start: 03-10-2019 TI ELIOT TFNA FDA Start: 03-10-2019 5.0MM TI LOCKING SCREW FDA Start: 03-10-2019 TFNA FENESTRATED HELICAL BLADE FDA Start: 03-10-2019 TI ELIOT TFNA FDA Start: 03-10-2019 5.0MM TI LOCKING SCREW FDA Start: 03-10-2019 TFNA FENESTRATED HELICAL BLADE FDA Start: 03-10-2019 TI ELIOT TFNA FDA Start: 03-10-2019 5.0MM TI LOCKING SCREW FDA Start: 03-10-2019 TFNA FENESTRATED HELICAL BLADE FDA Start: 03-10-2019 TI ELIOT TFNA FDA Start: 03-10-2019 5.0MM TI LOCKING SCREW FDA Start: 03-10-2019 TFNA FENESTRATED HELICAL BLADE FDA Start: 03-10-2019 TI ELIOT TFNA FDA Start: 03-10-2019 5.0MM TI LOCKING SCREW FDA Start: 03-10-2019 TFNA FENESTRATED HELICAL BLADE FDA Start: 03-10-2019 TI ELIOT TFNA FDA Start: 03-10-2019 5.0MM TI LOCKING SCREW FDA Start: 03-10-2019 TFNA FENESTRATED HELICAL BLADE FDA Start: 03-10-2019 TI ELIOT TFNA FDA Start: 03-10-2019 5.0MM TI LOCKING SCREW FDA Start: 03-10-2019 TFNA FENESTRATED HELICAL BLADE FDA Start: 03-10-2019 TI ELIOT TFNA FDA Start: 03-10-2019 5.0MM TI LOCKING SCREW FDA Start: 03-10-2019 TFNA FENESTRATED HELICAL BLADE FDA Start: 03-10-2019 TI ELIOT TFNA FDA Start: 03-10-2019 5.0MM TI LOCKING SCREW FDA Start: 03-10-2019 TFNA FENESTRATED HELICAL BLADE FDA Start: 03-10-2019 TI ELIOT TFNA FDA Start: 03-10-2019 5.0MM TI LOCKING SCREW FDA Start: 03-10-2019 TFNA FENESTRATED HELICAL BLADE FDA Start: 03-10-2019 TI ELIOT TFNA FDA Start: 03-10-2019 5.0MM TI LOCKING SCREW FDA Start: 03-10-2019 TFNA FENESTRATED HELICAL BLADE FDA Start: 03-10-2019 TI ELIOT TFNA FDA Start: 03-10-2019 5.0MM TI LOCKING SCREW FDA Start: 03-10-2019 TFNA FENESTRATED HELICAL BLADE FDA Start: 03-10-2019 TI ELIOT TFNA FDA Start: 03-10-2019 5.0MM TI LOCKING SCREW FDA Start: 03-10-2019 TFNA FENESTRATED HELICAL BLADE FDA Start: 03-10-2019 TI ELIOT TFNA FDA Start: 03-10-2019 Functional Status Date Assessment Result Facility 04-28-2022 Functional Status Moderate assistance [facility] 12-01-2021 Functional Status [facility] Mental Status Date Assessment Result Facility 11-24-2023 Cognitive function Level Of Cons ciousness Awake;Alert;Appropriate;Follow s Commands [facility] Work Phone: 10-17-2022 Mental Status Orientation Oriented x 4 [facility] 10-17-2022 Mental Status [facility] 12-01-2021 Mental Status [facility] Clinical Notes 02-04-2008 to 09-27-2024 Telephone Encounter - Sandra Dunn - 07/16/2024 9:43 AM ESTTelephone Encounter - Sandra Dunn - 07/16/2024 9:43 AM ESTTelephone Encounter - Kimmie-Valeria Ellsworth MA - 03/23/2024 11:30 AM EDT Note Date & Type Note Facility 09-27-2024 Radiology Diagnostic study note [facility] Imaging Services [address] [place] [address] Abdomen/Pelvis without Cont MR#: [id number] Acct: [id number] Name: JULIANA MERIDA Rep #: [id number] : 1960 F 63 From: Kimo Loaiza MD PCP: Mariah Guevara MD Status: REG ER Study:Abdomen/Pelvis without Cont Date of Exa m: 09/27/24 Exam# [id number] Ordering Dr: Graham Cochran DO PROCEDURE: ABDOMEN/PELVIS WITHOUT CONT 09/27/2024 REASON FOR EXAM: KIDNEY STONE TECHNIQUE: Abdomen and pelvis CT without intravenous contrast. Coronal and Sagittal reconstruction series were provided. One or more dose reduction techniques were used (e.g., Automated exposure control, adjustment of the mA and/or kV according to patient size, use of iterative reconstruction technique). COMPARISON: 09/12/2024. FINDINGS: Noncontrast technique limits evaluation of the abdominal and pelvic viscera. There is now bejt-[id number]-right mild basilar patchy ill-defined ground-glass opacities of the lower lobes which may be inflammatory, infectious or atelectasis, clinically correlate. Cylindrical bronchiectasis at the bases. Scar at the lingula again noted. Right coronary calcification again noted. Hepatic steatosis with geographic areas of more focal fat again seen within the liver. Status post cholecystectomy. The adrenal glands, pancreas and spleen appear within limits on noncontrast imaging. Motionartifact upper abdomen limits the evaluation. A couple of nonobstructing right intrarenal stones are again noted. No hydronephrosis or evidence of ureteral or bladder stone identified. 2.3 cm mildly high density focus partially exophytic at the right kidney is again seen axial 108 which may represent hemorrhagic or proteinaceous cyst with solid lesion not excluded. May follow-upwith nonemergent renal ultrasound as warranted. No bowel dilation or free air. Status post appendectomy. [place] artifact from spinal stimulator device. Aortoiliac atherosclerotic calcification. No abdominal aortic aneurysm. The bladder appears within limits. No free fluid seen. Status post hysterectomy. The ovaries appear within limits on noncontrast imaging. [place] artifact from left femoral gamma nail. Small fat containing left inguinalhernia without stranding again noted. CT/Abdomen/Pelvis without Cont IMPRESSION: There is now tsoq-evkiquv-kwpl-right mild basilar patchy ill-defined ground-glass opacities of the lower lobes which may be inflammatory, infectious or atelectasis, clinically correlate. A couple of nonobstructing right intrarenal stones are again noted. No hydronephrosis or evidence of ureteral or bladder stone identified. 2.3 cm mildly high density focus partially exophytic at the right kidney is again seen axial 108 which may represent hemorrhagic or proteinaceous cyst with solid lesion not excluded. May follow-up with nonemergent renal ultrasound as warranted. Hepatic steatosis with geographic areas of more focal fat again seen within the liver. Status post cholecystectomy. Reading Location: [id number] CC: Mariah Guevara MD; Dr. 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 I called the facility and left a voice mail with the phone number for a call back to get rescheduled. I also sent Ramandeep in Toshia Presley's office a bubble chat message letting them know patient was a no show today!! [facility] 03-23-2024 Miscellaneous Notes Patient was a no show for her appointment today. I called the facility and left a voice mail with the phone number for a call back to get rescheduled. I also sent Ramandeep in Toshia Presley's office a bubble chat message letting them know patient was a no show today!! documented in this encounter [facility] 03-23-2024 Telephone encounter Note error [facility] 03-23-2024 Miscellaneous Notes error documented in this encounter [facility] 11-24-2023 Discharge summary Note Date/Time November 24, 2023 5:05p m [facility] Medical Records Department [address] [place] [address] Emergency Department Summary 11/24/23 MR#: [id number] Acct: [id number] Name: JULIANA MERIDA YANELI Rep #:[id number] : 1960 63 From: Dino Pena MD PCP: Bianca Palomares MD Status:REG ER Location: ED HPI History of Present Illness Chief Complaint: Edema Informant: patient Narrative Narrative: 63-year-old patient in a correction presenting with multiple complaints on herown behalf. She states she has chronic edema in both of her legs, it seems likeit has been getting worse she has had approximately 16 pound weight gain in the past 4 or 5 days and today she feels like she has some swelling around her righteye although she has no pain or vision changes. Her abdomen seems all swollen to her as well. Today she also suddenly started getting pain in her right flankmostly in the low back. This has been associated with 2 episodes of vomiting. She has had no urinary symptoms except that she is on a diuretic and noticing she is urinating less after taking it. She also has had some mild dyspnea and chest tightness no orthopnea no new cough or fevers. [facility] Medical History Anxiety Cerebral vascular disease 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 Diabetes GERD (gastroesophageal reflux disease) Hyperlipidemia Hypertension Insomnia Insulin dependent diabetes mellitus Mild asthma Neuralgia and neuritis Schizoaffective disorder Schizophrenia Spondylosis Tobacco abuse Home Medications amlodipine 5 mg tablet 5 mg PO DAILY blood pressure 03/08/19 [History Last Taken 03/08/19] ondansetron HCl 4 mg tablet 4 mg PO Q6H PRN PRN Nausea 03/08/19 [History Last Taken Unknown] prazosin 1 mg capsule 1 mg PO QHS nightmares 03/08/19 [History Last Taken 03/07/19 20:00] albuterol sulfate 2.5 mg/3 mL (0.083 %) solution for nebulization 2.5 mg inhalation Q4H PRN SOB 07/29/21 [History Last Taken Unknown] apixaban 5 mg tablet (Eliquis) 5 mg PO BID 07/29/21 [History Last Taken Unknown] cyclosporine 0.05 % eye drops in a dropperette (Restasis) 1 drp EACH EYE Q12H 07/29/21 [History Last Taken Unknown] insulin aspart U-100 100 unit/mL (3 mL) subcutaneous pen unit subcut LUNCH 07/29/21 [History Last Taken Unknown] lurasidone 80 mg tablet (Latuda) 80 mg PO DAILY 07/29/21 [History Last Taken Unknown] naloxegol 25 mg tablet (Movantik) 25 mg PO DAILY 07/29/21 [History Last Taken Unknown] pantoprazole 40 mg tablet,delayed release 40 mg PO DAILY 07/29/21 [History Last Taken Unknown] acetaminophen 325 mg tablet 325 mg PO ONCE PRN 12/18/22 [History Last Taken Unknown] aluminum-mag hydroxide-simethicone 400 mg-400 mg-40 mg/5 mL oral susp (Maalox Maximum Strength) 5 ml PO Q3H 12/18/22 [History Last Taken Unknown] atenolol 25 mg tablet 25 mg PO DAILY 12/18/22 [History Last Taken Unknown] atorvastatin 80 mg tablet 40 mg PO QHS cholesterol 12/18/22 [History Last Taken Unknown] baclofen 5 mg tablet 5 mg PO DAILY 12/18/22 [History Last Taken Unknown] benzonatate 100 mg capsule 100 mg PO Q8H PRN 12/18/22 [History Last Taken Unknown] bisacodyl 10 mg rectal suppository (Dulcolax (bisacodyl)) 10 mg GA Q8H PRN 12/18/22 [History Last Taken Unknown] bisacodyl 5 mg tablet,delayed release (Dulcolax (bisacodyl)) 5 mg PO Q8H 12/18/22 [History Last Taken Unknown] carboxymethylcellulose sodium 0.5 % eye drops (Refresh Tears) 1 drp ophthalmic (eye) QHS 12/18/22 [History Last Taken Unknown] cholecalciferol (vitamin D3) 125 mcg (5,000 unit) capsule 125 mcg PO DAILY 12/18/22 [History Last Taken Unknown] cholecalciferol (vitamin D3) 50 mcg (2,000 unit) capsule 50 mcg PO DAILY 12/18/22 [History Last Taken Unknown] diclofenac sodium 1 % topical gel 2 g topical ONCE 12/18/22 [History Last Taken Unknown] dulaglutide 3 mg/0.5 mL subcutaneous pen injector (Trulicity) 3 mg subcut QWEEK 12/18/22 [History Last Taken Unknown] dyclonine 2 mg lozenges (Sucrets Sore Throat) 2 mg mucous membrane Q3H PRN 12/18/22 [History Last Taken Unknown] epinephrine 0.3 mg/0.3 mL injection, auto-injector (EpiPen) 0.3 mg IM Q5-15M PRN12/18/22 [History Last Taken Unknown] flash glucose sensor (FreeStyle Elisa 2 Sensor kit) 12/18/22 [History Last Taken Unknown] fluticasone fur. 200 mcg-umeclid 62.5 mcg-vilant 25 mcg inhalat.powder (Trelegy Ellipta) 1 inh inhalation DAILY 12/18/22 [History Last Taken Unknown] fluticasone propionate 50 mcg/actuation nasal spray,suspension (Flonase Allergy Relief) 2 spray intranasal DAILY 12/18/22 [History Last Taken Unknown] guaifenesin 100 mg/5 mL oral liquid 200 mg PO Q4H PRN 12/18/22 [History Last Taken Unknown] hydroxyzine pamoate 25 mg capsule (Vistaril) 25 mg PO QHS 12/18/22 [History Last Taken Unknown] insulin glargine U-300 conc 300 unit/mL (1.5 mL) subcutaneous pen (Toujeo SoloStar U-300 Insulin) 30 unit subcut DAILY 12/18/22 [History Last Taken Unknown] ipratropium 0.5 mg-albuterol 3 mg (2.5 mg base)/3 mL nebulization soln 3 ml inhalation 6XD 12/18/22 [History Last Taken Unknown] ipratropium 20 mcg-albuterol 100 mcg/actuation mist for inhalation (Combivent Respimat) 1 puff inhalation Q6H 12/18/22 [History Last Taken Unknown] ipratropium bromide 21 mcg (0.03 %) nasal spray 2 spray intranasal BID 12/18/22 [History Last Taken Unknown] lisinopril 2.5 mg tablet 2.5 mg PO DAILY 12/18/22 [History Last Taken Unknown] loratadine 10 mg tablet (Claritin) 10 mg PO DAILY 12/18/22 [History Last Taken Unknown] melatonin 3 mg capsule 3 mg PO HS PRN 12/18/22 [History Last Taken Unknown] metformin 500 mg tablet 500 mg PO QHS 12/18/22 [History Last Taken Unknown] montelukast 10 mg tablet 10 mg PO DAILY 12/18/22 [History Last Taken Unknown] naloxone 0.4 mg/mL injection solution 0.2 mg subcut ONCE 12/18/22 [History Last Taken Unknown] olanzapine 10 mg tablet (Zyprexa) 10 mg PO QPM 12/18/22 [History Last Taken Unknown] polyethylene glycol 3350 17 gram/dose oral powder (Miralax) 4 g PO DAILY 12/18/22 [History Last Taken Unknown] tizanidine 2 mg tablet 2 mg PO Q12H 12/18/22 [History Last Taken Unknown] duloxetine 60 mg capsule,delayed release (Cymbalta) 60 mg PO BID 01/16/23 [History Last Taken Unknown] potassium chloride 20 mEq tablet,extended release 20 meq PO DAILY 01/16/23 [History Last Taken Unknown] pregabalin 100 mg capsule 100 mg PO DAILY 01/16/23 [History Last Taken Unknown] furosemide 20 mg tablet 60 mg (3 x 20 mg) PO QAM #90 tabs 11/24/23 [Rx Last Taken Unknown] Allergy/AdvReac Type Severity Reaction Status Date / Time Iodinated Contrast Media Allergy Hives Verified 11/24/23 16:29 [Iodinated Contrast Media - IV Dye] amoxicillin trihydrate AdvReac Itching Verified 11/24/23 16:29 [From Augmentin] hydrocodone [From Vicodin] AdvReac Unknown Verified 11/24/23 16:29 potassium clavulanate AdvReac Itching Verified 11/24/23 16:29 [From Augmentin] prednisone AdvReac Unknown Verified 11/24/23 16:29 shellfish derived AdvReac Itching Verified 11/24/23 16:29 Surgical History S/P right rotator cuff repair Social History Smoking Status: Current every day smoker tobacco type: cigarettes ROS ROS ED Constitutional Constitutional ED: Denies chills or fever(s) Eyes Eyes: Denies change in vision or diplopia ENT ENT ED: Denies rhinorrhea or sore throat Cardiovascular Cardiovascular: Reports as per HPI, chest pain and pedal edema; Denies orthopneaor palpitations Respiratory/Chest Respiratory/Chest: Reports dyspnea; Denies orthopnea Gastrointestinal Gastrointestinal: Denies abdominal pain, diarrhea, nausea or vomiting Genitourinary Genitourinary ED: Reports as per HPI and flank pain; Denies dysuria or hematuria Musculoskeletal Musculoskeletal: Reports back pain; Denies neck pain Integumentary Denies abscess or rash Neurologic Neurologic: Denies headache(s), paresthesias or weakness Psychiatric Psychiatric: Denies suicidal ideation or suicidal thoughts EXAM Physical Exam Const Vital Signs: 11/24/23 16:26 11/24/23 17:11 11/24/23 16:57 Temperature 98.8 F Temperature Source Oral Pulse Rate 87 75 Respiratory Rate 14 16 Respiratory Pattern Normal Blood Pressure 136/74 H Blood Pressure Mean 94 Pulse Ox 96 Oxygen Delivery Method Room Air Room Air 05/12/24 18:43 11/24/23 19:00 Temperature Temperature Source Pulse Rate 85 Respiratory Rate 17 Respiratory Pattern Normal Blood Pressure 135/65 H Blood Pressure Mean 88 Pulse Ox 96 Oxygen Delivery Method Room Air Positive well nourished, well developed and obese General Appearance ED: well developed and NAD Nutritional Appearance: obese HEENT Reports moist mucous membranes HEENT Narrative: Mild right periorbital edema without tenderness, erythema, palpebral conjunctivitis, or eye discharge normocephalic and atraumatic Eyes PERRL and EOMs intact bilaterally Neck full ROM, supple and no JVD Resp normal respiratory effort Resp Narrative: Mild diffuse expiratory wheezes equal bilaterally Cardio regular rate, regular rhythm and no murmurs GI non-tender and non-distended GI Narrative: Palpable firm spine pump in the right anterior flank without any overlying erythema or tenderness. Abdomen otherwise benign. Auscultation: normoactive bowel sounds Palpation: soft Back/Spine Back/Spine Narrative: Normal inspection General Back: CVA tenderness right and other FROM Extremity normal to inspection General Extremety ED: Yes edema; Negative for pulses abnormal or tenderness General Extremity: edema bilateral lower extremity Details: severe (Symmetric); Negative for pulses abnormal Neuro oriented x3, CN's II-XII intact bilaterally and no sensory deficits noted Sensorium / Orientation: awake and alert Motor Exam: strength 5/5 throughout Psych Mood & Affect: anxious Skin no rashes or lesions noted and no wounds MDM MDM MDM Narrative Medical decision making narrative: Differential wide, patient with several complaints. Where the guards to the edema in her legs and some dyspnea with chest tightness, CHF in the differentialdiagnosis, however clinically she does not sound to be in CHF, chest x-ray 1 view on my interpretation negative for pulmonary edema or infiltrate, less consistent with CHF given that. The labs beta natruretic peptide machine is down and not able to get a measurement of that but her renal function is normal which is reassuring, and I offered to give her diuretics but it is late at nightshe wants to wait into the morning if she is going home which I think she can. With regards to the flank pain, we obtained a urinalysis that is negative for infection or hematuria she is anticoagulated. I obtained a CT of the abdomen/pelvis without contrast not knowing her renal function at the time, I reviewed the images and the report which I agree with, it is negative for obstructive uropathy. It does show some nonobstructing nephroliths, as well as an exophytic mass that is hyperdense on the right kidney 17 mm, further nonemergent workup indicated for this. At this time I think doubling her furosemide from 20 mg every morning to 40 would be reasonable, and having her follow-up with her physician for further workup given this exophytic mass. She is wanting something for anxiety at discharge. I am ordering her some Vistaril,she does not seem overly anxious objectively and I do not think there is a reason to give her benzodiazepines at this time. Her chest tightness is resolved and she is breathing better after breathing treatment. Her troponin isnegative ruling out acute coronary syndrome for the symptoms out of been going on for all day and then some. Lab Data Attestation: I reviewed the patient's lab results. Labs: Laboratory Results - last 24 hr 11/24/23 11/24/23 15:25 18:00 WBC 11.6 H RBC 4.90 Hgb 14.4 Hct 43.8 MCV 89.4 MCH 29.4 MCHC 32.9 RDW Std Deviation 50.6 H RDW Coeff of Gael 15.5 H Plt Count 223 MPV 9.9 Immature Gran % (Auto) 1.000 H Neut % (Auto) 69.2 Lymph % (Auto) 20.5 [place] % (Auto) 8.4 Eos % (Auto) 0.6 Baso % (Auto) 0.3 Absolute Neuts (auto) 8.0 H Absolute Lymphs (auto) 2.37 Nucleated RBC % 0 Sodium 142 Potassium 3.9 Chloride 104 Carbon Dioxide 33.0 H Anion Gap 5 BUN 15 Creatinine 0.84 Estim Creat Clear Calc 77.96 Est GFR (MDRD) Af Amer 89 Est GFR (MDRD) Non-Af 73 BUN/Creatinine Ratio 17.9 Glucose 141 H Calcium 9.0 Troponin I High Sens 5 Urine Color Yellow Urine Clarity Clear Urine pH 7.0 Ur Specific [place] 1.010 Urine Protein Negative Urine Glucose (UA) Normal Urine Ketones Negative Urine Occult Blood Negative Urine Nitrite Negative Urine Bilirubin Negative Urine Urobilinogen Normal Ur Leukocyte Esterase Negative Urine RBC 0 SEEN Urine WBC 0 SEEN Ur Squamous Epith Cells 0-5 SEEN Urine Bacteria 0 SEEN Urine Mucus 0 SEEN Radiography Diagnostic Testing: Clinical Impression(s) from Imaging Studies Abdomen/Pelvis CT 11/24/23 16:58 IMPRESSION: (NOT LISTED IN ORDER OF SIGNIFICANCE) Fatty liver. Enlarged liver. 17 mm right renal lesion. ACR White Paper guidelines (Hermerary, et al. JACR 2018; 15(2):264-273) recommend MRI or CT without and with intravenous contrast. Other findings as above. Electronically Signed: Roberto Zhou MD at 19:29 EDT , Chest X-Ray 11/24/23 18:55 IMPRESSION: No radiographic evidence of acute cardiopulmonary disease. Electronically Signed: Roberto Zhou MD at 19:30 EDT , Rhythm Strip Rhythm Strip: Sinus Rhythm Rate: 93 Ectopy: None EKG Initial EKG: Attestation: I personally reviewed and interpreted this EKG as follows: Interpretation: Sinus Rhythm and No Acute Injury Pattern Prior EKG tracings: available for review Prior: Unchanged Discharge Plan Triage Chief Complaint: Edema Other Complaint: Flank Pain ED Provider: Dino Pena Dx/Rx/DC Orders Clinical Impression: Bilateral edema of lower extremity, COPD (chronic obstructive pulmonary disease), Anxiety, Acute right flank pain, Mass of right kidney, Chest tightness Instructions: ED Peripheral Edema, Bilateral, ED Tumor, Uncertain Cause Prescriptions: Changed furosemide 20 mg tablet 60 mg PO QAM Qty: 90 0RF No Action acetaminophen 325 mg tablet 325 mg PO ONCE PRN atenolol 25 mg tablet 25 mg PO DAILY baclofen 5 mg tablet 5 mg PO DAILY benzonatate 100 mg capsule 100 mg PO Q8H PRN loratadine [Claritin] 10 mg tablet 10 mg PO DAILY Combivent Respimat 20-100 mcg/actuation mist 1 puff inhalation Q6H diclofenac sodium 1 % gel 2 g topical ONCE Rx Instructions: apply to single elbow, wrist or hand; for hand includes palm/fingers/back of hand bisacodyl [Dulcolax (bisacodyl)] 5 mg tablet,delayed release (DR/EC) 5 mg PO Q8H bisacodyl [Dulcolax (bisacodyl)] 10 mg suppository 10 mg GA Q8H PRN epinephrine [EpiPen] 0.3 mg/0.3 mL auto-injector 0.3 mg IM Q5-15M PRN Rx Instructions: do not exceed 3 doses per episode fluticasone propionate [Flonase Allergy Relief] 50 mcg/actuation spray,suspension 2 spray intranasal DAILY Rx Instructions: administer into each nostril (DME) FreeStyle Elisa 2 Sensor Kit See Rx Instructions .Route Rx Instructions: As directed guaifenesin 100 mg/5 mL liquid 200 mg PO Q4H PRN ipratropium bromide 21 mcg (0.03 %) spray,non-aerosol 2 spray intranasal BID Rx Instructions: administer into each nostril ipratropium-albuterol 0.5 mg-3 mg(2.5 mg base)/3 mL solution for nebulization 3 ml inhalation 6XD lisinopril 2.5 mg tablet 2.5 mg PO DAILY alum-mag hydroxide-simeth [Maalox Maximum Strength] 400-400-40 mg/5 mL suspension 5 ml PO Q3H melatonin 3 mg capsule 3 mg PO HS PRN metformin 500 mg tablet 500 mg PO QHS polyethylene glycol 3350 [Miralax] 17 gram/dose powder 4 g PO DAILY montelukast 10 mg tablet 10 mg PO DAILY naloxone 0.4 mg/mL solution 0.2 mg subcut ONCE carboxymethylcellulose sodium [Refresh Tears] 0.5 % drops 1 drp ophthalmic (eye) QHS Sucrets Sore Throat 2 mg lozenge 2 mg mucous membrane Q3H PRN tizanidine 2 mg tablet 2 mg PO Q12H Nasir SoloStar U-300 Insulin 300 unit/mL (1.5 mL) insulin pen 30 unit subcut DAILY Trelegy Ellipta 200-62.5-25 mcg blister with device 1 inh inhalation DAILY Trulicity 3 mg/0.5 mL pen injector 3 mg subcut QWEEK hydroxyzine pamoate [Vistaril] 25 mg capsule 25 mg PO QHS cholecalciferol (vitamin D3) 50 mcg (2,000 unit) capsule 50 mcg PO DAILY cholecalciferol (vitamin D3) 125 mcg (5,000 unit) capsule 125 mcg PO DAILY olanzapine [Zyprexa] 10 mg tablet 10 mg PO QPM duloxetine [Cymbalta] 60 mg capsule,delayed release(DR/EC) 60 mg PO BID potassium chloride 20 mEq tablet extended release 20 meq PO DAILY pregabalin 100 mg capsule 100 mg PO DAILY atorvastatin 80 mg tablet 40 mg PO QHS prazosin 1 MG capsule 1 mg PO QHS amlodipine 5 MG tablet 5 mg PO DAILY ondansetron HCl 4 MG tablet 4 mg PO Q6H PRN PRN (Reason: Nausea) albuterol sulfate 2.5 mg /3 mL (0.083 %) Solution For Nebulization 2.5 mg INHALATION Q4H PRN (Reason: SOB) pantoprazole 40 mg Tablet,Delayed Release (Dr/Ec) 40 mg PO DAILY insulin aspart U-100 100 unit/mL (3 mL) Insulin Pen SUBCUT LUNCH Rx Instructions: 8 UNBITS IN AM 6 UNITS AT LUNCH 8 UNITS IN THE EVENING PLUS SS cyclosporine [Restasis] 0.05 % Dropperette 1 drp EACH EYE Q12H Latuda 80 mg Tablet 80 mg PO DAILY Eliquis 5 mg Tablet 5 mg PO BID Movantik 25 mg Tablet 25 mg PO DAILY Primary Care Provider: Bianca Palomares Referrals: Bianca Palomares MD [Primary Care Provider] - Activity Restrictions/Additional Instructions: 17 mm exophytic mass right kidney seen. Further workup advised as an outpatient. Increase furosemide to 60 mg once a day, or as advised by Dr. Newman different dosing desired. Disposition Disposition: Care Home Facility What to do if you have Problems For any increased pain, shortness of breath, bleeding, nausea or vomiting, chestpain, or any unexpected problems, contact your Primary Care Provider. Call [facility] ([phone]) or report to the closest Emergency Room. Call 911 if necessary. 11/24/232013 <Electronically signed by Dino Pena MD> Cosigner Signature (if applicable): CC: Bianca Palomares MD ~ Signed [facility] Work Phone: [phone] Progress note Author Karthikeyan Grove [facility] November 07, 2023 12:35pm Note Date/Time November 07, 2023 12: 35pm [facility] [address] [place] [address] Progress Note - Wound Care 11/07/23 1224 MR#: [id number] Acct: [id number] Name: JULIANA MERIDA Rep #:[id number] : 1960 63 From: Karthikeyan tavares DPM PCP: Bianca Palomares MD Status:REG RCR Location: History of Present Illness Date of Service: 11/07/23 Chief Complaint: Non healing right ankle ulcer History of Wound: Ms. Merida is a 62-year-old who was referred to this facility due to nonhealing right lateral ankle ulcer. Noted a year ago, started out as abullae and subsequently opened up. She states that over the years, she has had alginate and collagen dressings done at her facility without any significant improvement. History of diabetes mellitus, she is not sure of her most recent A1c but states that it has ranged from 8-13. Also history of tobacco use, smokes daily. There is significant pain around the ulcer but she denies otherwise significant leg pain. Does not wear compression. Mostly sedentary but sleeps in the bed. She feels well otherwise, no chills, fever, nausea, vomiting or change in bowel habit reported. Subjective Subjective This is a 63-year-old female who continues to follow to the wound care center for a right lateral ankle ulceration. Patient is assisted by wheelchair today. She states she is taking the antibiotics as instructed. Will see infectious disease is 11/20/2023. Nursing facility has assisted in her dressing changes daily. Nursing states wound is improving. She states the right ankle is painful but is improving. She denies constitutional symptoms. Denies further complaints. Objective Data Objective Data Vital Signs: Vital Signs Temp Pulse Resp BP O2 Del Method 97.5 F L 67 18 111/47 L Room Air 11/07/23 09:41 11/07/23 09:41 11/07/23 09:41 11/07/23 09:41 10/24/23 09:47 Oxygen Delivery Method Room Air Physical Exam Const alert, oriented x3 and no apparent distress General Appearance: cooperative HEENT normocephalic Eyes General Eye: normal appearance of both eyes Neck General: normal visual inspection Lymph Lymphatic: no lymphadenopathy noted and no lymphedema noted Resp normal respiratory effort Cardio regular rate and regular rhythm Extremity normal capillary refill, no joint enlargement, no calf tenderness and no pedal edema Extremity Narrative: Vascular: DP and PT pulses palpable. Capillary fill time less than 5 seconds todigits. Normal temperature gradient. Hair growth is absent to digits/foot. Neurologic: Light touch sensation diminished. Gross sensation intact. Protective sensation is significantly diminished secondary to diabetic peripheral polyneuropathy. Dermatologic: Skin does appear well-hydrated. Skin is soft, supple, normal turgor. Right lateral ankle demonstrates ulceration distal to the lateral malleolus to the level of the subcutaneous tissue with mixed fibrogranular layerand serosanguineous drainage with hyperpigmented rim. There is some periwound maceration noted. Ulceration demonstrates no malodor, no purulent drainage, no localized erythema, no increased temperature, no palpable fluctuance/bogginess, no visible abscess formation. Musculoskeletal: Patient is in wheelchair and does have decreased muscle strength of the lower extremities bilateral. Skin no rashes or lesions noted, skin turgor normal and no jaundice Neuro moves all extremities Debridement Note Debridement Note Wound debrided: Right lateral ankle Laterality: Right Wound Grade/Stage: Esqueda stage II Type of Debridement: Excisional debridement Anesthesia Used: 5% Lidocaine Gel and - (10 cc 1% lidocaine with epinephrine) Depth: Down to and including healthy tissue and in the subcutaneous layer Percentage of wound debrided: 100 Instrument Used: 5mm curette Tissue Removed: Fibrous, devitalized subcutaneous, biofilm, slough Severity: Fat Layer Exposed Amount of bleeding with debridement: Mild Bleeding Controlled with: Compression and gauze Patient tolerated procedure: Patient tolerated procedure well Post-Debridement Measurements and Additional Note: Post-Debridement Measurements/Treatment RUY - Nurse 1 - General Ulcer Assessment Start: 10/17/23 09:30 Freq: Status: Active Protocol: CLOVIS Activity Type Activity Date Activity User E-sign Co-sign Detail Recorded Client Recorded Date Recorded By Document 10/17/23 09:32 MT Desktop 10/17/23 09:40 MT Document 10/24/23 09:47 KW Desktop 10/24/23 09:55 KW Document 10/31/23 09:37 DL Desktop 10/31/23 09:47 DL Document 11/07/23 09:41 RB Desktop 11/07/23 09:43 RB 10/17/23 10/24/23 10/31/23 09:32 09:47 09:37 WC - Today's Visit Information Type of service Follow-up Visit Follow-up Visit 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 (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 (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 ) ) ) Arrival Mode Wheelchair Wheelchair Wheelchair Transfer Assistance None Patient Identification Verified (Name & Yes Yes Yes ) Patient Requires Transmission-Based No Precautions Safety Precautions Fall Prevention Finger Stick Blood Sugar(mg/dl) (if 110 indicated): Blood Sugar Stated by Patient Vital Signs Temperature (97.8 F-99.1 F) 96.6 F L 97.5 F L 98.3 F Temperature Source Temporal Temporal Temporal Pulse Rate (60-100) 79 91 70 Pulse Location Monitor Monitor Monitor Respiratory Rate (12-18) 18 18 18 Respiratory rate source Observation Observation Observation Oxygen Delivery Method Room Air Room Air Blood Pressure (90/60-120/80) 123/76 H 149/91 H 108/59 L Blood Pressure Mean (mm Hg) 91 110 75 Source Monitor Monitor Monitor Position Semi-Fowlers Semi-Fowlers Blood Pressure Location Left Arm Left Arm History Since Last Visit- (Skip if this is Patient's initial visit) Have you changed medications since your No No No last visit? Any new allergies or adverse reactions No No No Had a fall/change in ADL's that may No No No increase risk of falls Signs or symptoms of abuse and/or No No No neglect since last visit Have you been in the hospital since your No No No last visit? Has dressing in place as prescribed Yes Yes Yes Has compression in place as prescribed Yes Yes Has offloadiing in place as prescribed N/A Yes Experienced any changes in pain level or No No management Left Footwear No Footwear Slipper Right Footwear No Footwear Slipper Pain Scale: 0-10 Numeric Is Patient Pain Free? 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 ) Arrival Mode Wheelchair Transfer Assistance None Patient Identification Verified (Name & Yes ) Patient Requires Transmission-Based Precautions Safety Precautions Finger Stick Blood Sugar(mg/dl) (if indicated): Blood Sugar Vital Signs Temperature (97.8 F-99.1 F) 97.5 F L Temperature Source Temporal Pulse Rate (60-100) 67 Pulse Location Monitor Respiratory Rate (12-18) 18 Respiratory rate source Observation Oxygen Delivery Method Blood Pressure (90/60-120/80) 111/47 L Blood Pressure Mean (mm Hg) 68 Source Monitor Position Sitting Blood Pressure Location Left Arm History Since Last Visit- (Skip if this is Patient's initial visit) Have you changed medications since your No last visit? Any new allergies or adverse reactions No Had a fall/change in ADL's that may No increase risk of falls Signs or symptoms of abuse and/or No neglect since last visit Have you been in the hospital since your No last visit? Has dressing in place as prescribed Yes Has compression in place as prescribed Yes Has offloadiing in place as prescribed No Experienced any changes in pain level or No management Left Footwear Right Footwear Pain Scale: 0-10 Numeric Is Patient Pain Free? Yes RT Lat Ankle -Description -Intensity -Pain Behavior -Alleviating Factors/Interventions WC - Nurse 1 - General Ulcer Measurement Start: 10/17/23 09:30 Freq: Status: Active Protocol: Activity Type Activity Date Activity User E-sign Co-sign Detail Recorded Client Recorded Date Recorded By Document 10/17/23 09:32 MT Desktop 10/17/23 09:40 MT Document 10/24/23 09:47 KW Desktop 10/24/23 09:55 KW Document 10/31/23 09:37 DL Desktop 10/31/23 09:47 DL Document 11/07/23 09:41 RB Desktop 11/07/23 09:43 RB 10/17/23 10/24/23 10/31/23 09:32 09:47 09:37 Wound Center Nurse 1 #1 R Lat Ankle -Combined with other wound -Current Size (cm) - Length 1.5 1.1 0.8 -Current Size (cm) - Width 1.2 0.5 0.4 -Current Size (cm) - Depth 0.5 0.3 -Total Square Cm 1.80 0.55 0.32 -Tunneling -Undermining/Tunneling -Undermining/Tunneling Starts (O'clock 7 ) -Undermining/Tunneling Ends (O'clock) 4 -Maximum Distance (cm) 0.4 -Circular Undermining -Exudate Amt Medium Small Medium -Exudate Type Serosanguineous Serosanguineous Serosanguineous -Wound Margin Distinct, Thickened Thickened & Outline Rolled Under Attached -Granulation Amt Large (67-100%) Medium (34-66%) Small (1-33%) -Granulation Quality Red Red Red -Slough/Fibrin -Necrosis Amt Small (1-33%) Small (1-33%) Small (1-33%) -Necrotic Tissue Type Adherent Slough Adherent Slough Adherent Slough -Structure Exposed N/A -Texture (Lori-wound Skin Appearance) Assessed, Assessed, Scarring Localized Edema Localized Edema -Moisture (Lori-wound Skin Appearance) Assessed Assessed Maceration -Color (Lori-wound Skin Appearance) Assessed, Assessed Hemosiderin Hemosiderin Staining Staining -Temperature (Lori-wound Skin No Abnormality No Abnormality No Abnormality Appearance) (Pt Warm) (Pt Warm) (Pt Warm) -Tenderness on Palpation (Lori-wound No No Skin Appearance) -Ulcer Cleansing Rinsed/ Rinsed/ Soap and Water Irrigated with Irrigated with Saline Saline -Foul Odor after Cleansing No No -Anesthetic Used 5% Lidocaine 5% Lidocaine 5% Lidocaine Gel Gel Gel Lower Limb Edema Present Right Calf (cm) 36 Right Ankle (cm) 22.7 11/07/23 09:41 Wound Center Nurse 1 #1 R Lat Ankle -Combined with other wound No -Current Size (cm) - Length 0.9 -Current Size (cm) - Width 0.5 -Current Size (cm) - Depth 0.3 -Total Square Cm 0.45 -Tunneling No -Undermining/Tunneling No -Undermining/Tunneling Starts (O'clock ) -Undermining/Tunneling Ends (O'clock) -Maximum Distance (cm) -Circular Undermining No -Exudate Amt Large -Exudate Type Serosanguineous -Wound Margin Thickened & Rolled Under -Granulation Amt Medium (34-66%) -Granulation Quality [place] -Slough/Fibrin Yes -Necrosis Amt Large (67-100%) -Necrotic Tissue Type Adherent Slough -Structure Exposed N/A -Texture (Lori-wound Skin Appearance) Assessed -Moisture (Lori-wound Skin Appearance) Assessed -Color (Lori-wound Skin Appearance) Hemosiderin Staining -Temperature (Lori-wound Skin No Abnormality Appearance) (Pt Warm) -Tenderness on Palpation (Lori-wound No Skin Appearance) -Ulcer Cleansing Wound Cleanser -Foul Odor after Cleansing No -Anesthetic Used 5% Lidocaine Gel Lower Limb Edema Present Yes Right Calf (cm) 38.5 Right Ankle (cm) 25.8 WC - Nurse 2 - General Ulcer CM Notes Start: 10/17/23 09:30 Freq: Status: Active Protocol: Activity Type Activity Date Activity User E-sign Co-sign Detail Recorded Client Recorded Date Recorded By Document 10/17/23 10:13 [employer] Desktop 10/17/23 10:37 [employer] Document 10/24/23 10:01 [employer] Desktop 10/24/23 10:15 [employer] Document 10/31/23 09:59 [employer] Desktop 10/31/23 10:10 [employer] Document 11/07/23 10:10 [employer] Desktop 11/07/23 10:27 TiltF 10/17/23 10/24/23 10/31/23 10:13 10:01 09:59 Wound Center Nurse 2 #1 R Lat Ankle -Time 10:13 10:01 09:59 -Correct Patient Yes Yes Yes -Correct Side, Site, Position Yes Yes Yes -Correct Procedure Yes Yes Yes -Procedure Performed Yes Yes Yes -Type of Procedure Debridement Debridement Debridement -Clinical Debridement Subcutaneous Subcutaneous Subcutaneous -Tissue Removed Subcutaneous Subcutaneous Subcutaneous -Post Debridement (cm) - Length 1.5 1 0.9 -Post Debridement (cm) - Width 1.4 0.5 0.5 -Post Debridement (cm) - Depth 0.5 0.5 0.3 -Total Square (Post) (cm) 2.10 0.5 0.45 -Area of Debridement (cm) - Length 1.5 1 0.9 -Area of Debridement (cm) - Width 1.4 0.5 0.5 -Total Square (Area) (cm) 2.10 0.5 0.45 -Tunneling No No No -Undermining/Tunneling No No No -Circular Undermining No No No -Wound/Ulcer Outcome Not Healed Not Healed Not Healed -Ulcer Cleansing Rinsed/ Rinsed/ Rinsed/ Irrigated with Irrigated with Irrigated with Saline Saline Saline -Foul Odor after Cleansing No No No -Bioengineered Tissue No No -Injectable Lidocaine (%) -Lidocaine (ml) -Injectable Lidocaine w/ Epi (%) 1 1 1 -Injectable Lidocaine w/ Epi (mls) 10 10 10 -Bleeding Controlled with Pressure Pressure Pressure -Treatment Response Procedure Procedure Procedure Tolerated Well Tolerated Well Tolerated Well -Assistive Device(s) Wheelchair -Debridement - Subq, 1st 20sq cm Yes Yes Yes Pain Scale: 0-10 Numeric Is Patient Pain Free? No No Yes RT Lat Ankle -Description Aching -Intensity 10 8 -Duration (hours) Acute Chronic -Pain Behavior Facial Grimacing -Pain Aggravating Factors Debridement Sitting, Debridement -Alleviating Factors/Interventions None Medication -Comments injected w/ given lidocaine injectable lido w/ epi prior to debridement 11/07/23 10:10 Wound Center Nurse 2 #1 R Lat Ankle -Time 10:10 -Correct Patient Yes -Correct Side, Site, Position Yes -Correct Procedure Yes -Procedure Performed Yes -Type of Procedure Debridement -Clinical Debridement Subcutaneous -Tissue Removed Subcutaneous -Post Debridement (cm) - Length 1.2 -Post Debridement (cm) - Width 0.8 -Post Debridement (cm) - Depth 0.5 -Total Square (Post) (cm) 0.96 -Area of Debridement (cm) - Length 1.2 -Area of Debridement (cm) - Width 0.8 -Total Square (Area) (cm) 0.96 -Tunneling No -Undermining/Tunneling No -Circular Undermining No -Wound/Ulcer Outcome Not Healed -Ulcer Cleansing Rinsed/ Irrigated with Saline -Foul Odor after Cleansing No -Bioengineered Tissue No -Injectable Lidocaine (%) 1 -Lidocaine (ml) 2 -Injectable Lidocaine w/ Epi (%) 1 -Injectable Lidocaine w/ Epi (mls) 8 -Bleeding Controlled with Pressure -Treatment Response Procedure Tolerated Well -Assistive Device(s) -Debridement - Subq, 1st 20sq cm Yes Pain Scale: 0-10 Numeric Is Patient Pain Free? No RT Lat Ankle -Description Sharp -Intensity 6 -Duration (hours) Chronic -Pain Behavior Facial Grimacing -Pain Aggravating Factors Sitting, Debridement -Alleviating Factors/Interventions Medication -Comments injected w/ lidocaine per dr salvatore REDMOND - Nurse 3 - General Ulcer D/C NN Start: 10/17/23 09:30 Freq: Status: Active Protocol: Activity Type Activity Date Activity User E-sign Co-sign Detail Recorded Client Recorded Date Recorded By Document 10/17/23 10:51 Desktop 10/17/23 10:52 Document 10/24/23 10:22 [facility] Desktop 10/24/23 10:23 [facility] Document 10/31/23 11:54 DL [id number] 10/31/23 11:56 DL Document 11/07/23 10:31 KW Desktop 11/07/23 10:31 KW 10/17/23 10/24/23 10/31/23 10:51 10:22 11:54 Wound Care Center Nurse 3 #1 R Lat Ankle -Ulcer Cleansing Not Cleansed Rinsed/ Rinsed/ Irrigated with Irrigated with Saline Saline -Foul Odor after Cleansing No No No -Primary Dressing Applied -Other Dressing dakins moist dakins gauze -Primary Dressing Covered/Secured with Dry Gauze,Dry Dry Gauze & Dry Gauze & Gauze & Roll Roll Gauze, Roll Gauze, Gauze,Secured Secured with Secured with with Tape Tape Tape -Other Covering abd ABD -Mepilex Border -Wound Comment(s) dakins soaked gauze then abd Right -Compression Wrap Daljit Wrap Daljit Wrap Daljit Wrap -Tubular Bandage -Size of Tubigrip Used -Size E ($) Treatment Response Procedure Procedure Tolerated Well Tolerated Well Pain Scale: 0-10 Numeric Is Patient Pain Free? Yes Yes Yes Teaching: Wound Center wound status -Person Taught Patient -Teaching Method Discussion -Response to teaching Verbalize understanding WC - Visit Discharge Discharge Condition Stable Stable Stable Ambulatory Status Wheelchair Wheelchair Wheelchair Transportation Private Auto ecf ECF Medication Reconcilliation completed & provided to patient/care provider Clinical Summary of Care Provided Yes Facility Type [facility] Facility Orders Sent Yes 11/07/23 10:31 Wound Care Center Nurse 3 #1 R Lat Ankle -Ulcer Cleansing -Foul Odor after Cleansing -Primary Dressing Applied Mepilex Border -Other Dressing DAKINS SOAKED GAUZE -Primary Dressing Covered/Secured with -Other Covering -Mepilex Border 1 -Wound Comment(s) Right -Compression Wrap -Tubular Bandage Double Layer -Size of Tubigrip Used Size E -Size E ($) 2 Treatment Response Pain Scale: 0-10 Numeric Is Patient Pain Free? Yes Teaching: Wound Center wound status -Person Taught -Teaching Method -Response to teaching WC - Visit Discharge Discharge Condition Stable Ambulatory Status Wheelchair Transportation Medication Reconcilliation completed & No provided to patient/care provider Clinical Summary of Care Provided Yes Facility Type Orders Sent Assessment/Plan Assessment/Plan (1) 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: CODE(S): L97.312 - Non-pressure chronic ulcer of right ankle with fat layer exposed (2) Diabetes mellitus with diabetic polyneuropathy: CODE(S): E11.42 - Type 2 diabetes mellitus with diabetic polyneuropathy (3) Tobacco abuse: CODE(S): Z72.0 - Tobacco use (4) Hyperlipidemia: CODE(S): E78.5 - Hyperlipidemia, unspecified (5) Ankle osteomyelitis, right: CODE(S): M86.9 - Osteomyelitis, unspecified PLAN: Plan Patient seen and evaluated Patient did have radiographs performed 09/26/2023 of the right ankle and foot demonstrating generalized osteopenia, soft tissue swelling, and mild arthritis of the first MTPJ and TNJ. Recent laboratory data demonstrates WBC 9.8, ESR 15, glucose 210. No recent A1cwas performed with last A1c of record 03/09/2019 which was 8% at this time. Recommended updating A1c. Wound cultures were obtained 09/26/2023 demonstrating MRSA positive. These cultures do reflect previous past cultures of MRSA positive from August and July 2023. Referral to Dr. Robbins was placed. Patient finished previously prescribed doxycycline 100 mg twice daily for [address] Laughlin. Ulceration was debrided as noted in the clinical panel above. Prior to debridement she was locally anesthetized proximal to the ulcerative site consisting of 10 cc 1% lidocaine with epinephrine with block to the sural nerve and superficial peroneal nerve proximal to ulceration. This is noted to improvepatient's tolerance of debridement today. Ulceration to the right lateral anklemeasures post- debridement measures 1.2 cm x 0.8 cm x 0.5 cm. No localized signsof infection. Change was made in dressings for improvement of source control and will continue this. Dakin's wet-to-dry dressing was applied to the lateral ankle. SAP dressing over this with Dry sterile dressing. She is instructed to change dressing daily. She is continuing oral antibiotic as instructed and has follow-up with infectious disease scheduled 11/20/23, as she missed appointment 10/30/23 due to confusion from her transportation service. There is noted visual improvement of the wound bed with more healthy granular tissue noted following application of the Dakin's and with continued antibiotics. There is noted improvement in appearance of tissue but slight increase in size versus her previous visit due to debridement of some periwound maceration tissue. With wound bed improving consideration will be given to collagen based product for application at next visit. Due to significant amount of pain to palpation about the right lateral ankle andpatient underwent MRI 10/11/[address] Laughlin. MRI on 10/11/2023 demonstrating lateral soft tissue swelling with skin thickening. There is focal defect consistent with wound. There is marrow edemaof the lateral malleolus and distal fibula, series 7 image 8. Impression: Osteomyelitis of the lateral malleolus of the distal fibula with soft tissue wound and swelling. I have reviewed this MRI series and do note the increased marrow edema of the lateral malleolus and series 7 image 8 but also an image 9. This does appear to be at the outer portion of the cortex of the bone as the remaining images do not demonstrate increased signal. I did discuss these images in detail with the patient today in addition to findings with concern forosteomyelitis. I did discuss possible surgical options with the patient in detail 10/17/2023. All options were discussed with the patient in detail including risks and benefits of each procedure. Discussed risk of BKA with patient today. Patient is understanding of this but would like to save the right lower extremity.. Also discussed possible treatment with IV antibiotics and aggressive surgical debridement of the soft tissue. Patient at this time would like to take time toconsider options as she is on the oral antibiotic in addition to further discussion with infectious disease. Previous culture results of MRSA positive were reviewed. Due to the patient unable to get into infectious disease I did initiate outpatient oral antibiotic therapy on 10/17/2023. Rx doxycycline 100 mg twice daily x 14 days and Rx levofloxacin 750 mg twice daily x 14 days. Antibiotic stop date for first round10/31/2023. This antibiotic regimen was extended due to next infectious disease appointment on 11/20/2023 with new stop date of antibiotics 11/15/2023. Recommendedprobiotic use with antibiotic and to take with food. She continues to take antibiotics as instructed and there is noted improvement in her wound with continued decrease in size and more healthy appearing tissue. Recommended adequate protein intake to aid in wound healing. Solomon supplementation is also recommended. Discussed with patient continue proper diabetic diet to aid in wound healing andprovide good glycemic control. Discussed glycemic control and lowering of her blood sugar/A1c is important to aid in wound healing. She was again reminded to continue to wear proper fitting shoe gear and to ensure shoe gear is worn at all times for protection of the foot as she is diabetic with significant diminished sensation secondary to peripheral polyneuropathy. Discussed with patient the need for smoking cessation. Discussed impacts of wound healing from her smoking. Discussed with smoking blood flow is diminishedto vital organs and extremities which is essential for her wound healing, in addition to affecting oxygen content/saturation of the bloodstream which is alsoessential for wound healing. Discussed smoking cessation aids today and these were offered. Recommended continued discussion with her primary care physician to aid her in smoking cessation. 5 minutes total was spent on discussion 10/03/23. I discussed signs and symptoms of infection today. Discussed if she notices increasing redness of the skin about the ulcerative site moving up the leg, purulent drainage from the wound site, increasing foul odor from the wound, or if she develops fever greater than 101 degree accompanied by nausea, vomiting, chills that these are signs of a progressing infection and she should report to the ED for IV antibiotics and further evaluation. Patient voices understanding of this. The following work up and care recommendations were made: Dressing: Dakin's wet-to-dry dressing, SAP dressing over this. Change daily Wash: Soap and water Tissue growth optimization: Dakin's Offload: Padded protective dressing of the lateral ankle. Recommended waffle offloading boot while in bed. Vascular: DP and PT pulses weakly palpable bilateral. Monophasic Doppler to left pedal pulses. Edema: Mild edema noted to the lower extremities. Recommended continued Tubigrip compression with elevation of lower extremities. Infection: Osteomyelitis confirmed of the distal lateral malleolus by MRI 10/11/2023. She does demonstrate positive MRSA cultures and is currently on doxycycline and levofloxacin for 14 days, this was extended (stop date now for 11/15/23). Referral to infectious disease, next appointment 11/20/23. Pain: May take [id number] Tylenol for discomfort Host factors: DM type II with peripheral polyneuropathy, MRSA positive cultures,edema, chronic tobacco abuse. I answered all the patient's questions. To return to the wound healing center in 1 week or call sooner if the patient has any questions or concerns. 11/07/23 1235 <Electronically signed by Karthikeyan Grove DPM> Cosigner Signature (if applicable): CC: ~ Signed [facility] Work Phone: [phone] 326-259504-18-2024 Progress note Author Karthikeyan Grove [facility] October 31, 2023 12:37pm Note Date/Time October 31, 2023 12: 26pm [facility] [address] [place] [address] Progress Note - Wound Care 10/31/23 1222 MR#: [id number] Acct: [id number] Name: JULIANA MERIDA Rep #:[id number] : 1960 63 From: Karthikeyan tavares DPM PCP: Bianca Palomares MD Status:REG RCR Location: History of Present Illness Date of Service: 10/31/23 Chief Complaint: Non healing right ankle ulcer History of Wound: Ms. Merida is a 62-year-old who was referred to this facility due to nonhealing right lateral ankle ulcer. Noted a year ago, started out as abullae and subsequently opened up. She states that over the years, she has had alginate and collagen dressings done at her facility without any significant improvement. History of diabetes mellitus, she is not sure of her most recent A1c but states that it has ranged from 8-13. Also history of tobacco use, smokes daily. There is significant pain around the ulcer but she denies otherwise significant leg pain. Does not wear compression. Mostly sedentary but sleeps in the bed. She feels well otherwise, no chills, fever, nausea, vomiting or change in bowel habit reported. Subjective Subjective This is a 63-year-old female who continues to follow to the wound care center for a right lateral ankle ulceration. Patient is assisted by wheelchair today. She states she is taking the antibiotics as instructed. There was confusion with her transportation for appointment with infectious disease and thus she didmiss the appointment. Next scheduled appointment with infectious disease is 11/20/2023. Nursing facility has assisted in her dressing changes daily. She states the right ankle is painful but is improving. She denies constitutional symptoms. Denies further complaints. Objective Data Objective Data Vital Signs: Vital Signs Temp Pulse Resp BP O2 Del Method 98.3 F 70 18 108/59 L Room Air 10/31/23 09:37 10/31/23 09:37 10/31/23 09:37 10/31/23 09:37 10/24/23 09:47 Oxygen Delivery Method Room Air Physical Exam Const alert, oriented x3 and no apparent distress General Appearance: cooperative HEENT normocephalic Eyes General Eye: normal appearance of both eyes Neck General: normal visual inspection Lymph Lymphatic: no lymphadenopathy noted and no lymphedema noted Resp normal respiratory effort Cardio regular rate and regular rhythm Extremity normal capillary refill, no joint enlargement, no calf tenderness and no pedal edema Extremity Narrative: Vascular: DP and PT pulses palpable. Capillary fill time less than 5 seconds todigits. Normal temperature gradient. Hair growth is absent to digits/foot. Neurologic: Light touch sensation diminished. Gross sensation intact. Protective sensation is significantly diminished secondary to diabetic peripheral polyneuropathy. Dermatologic: Skin does appear well-hydrated. Skin is soft, supple, normal turgor. Right lateral ankle demonstrates ulceration distal to the lateral malleolus to the level of the subcutaneous tissue with mixed fibrogranular layerand serosanguineous drainage with hyperpigmented rim. Ulceration demonstrates no malodor, no purulent drainage, no localized erythema, no increased temperature, no palpable fluctuance/bogginess, no visible abscess formation. Musculoskeletal: Patient is in wheelchair and does have decreased muscle strength of the lower extremities bilateral. Skin no rashes or lesions noted, skin turgor normal and no jaundice Neuro moves all extremities Debridement Note Debridement Note Wound debrided: Right lateral ankle Laterality: Right Wound Grade/Stage: Esqueda stage II Type of Debridement: Excisional debridement Anesthesia Used: 5% Lidocaine Gel and - (10 cc 1% lidocaine with epinephrine) Depth: Down to and including healthy tissue and in the subcutaneous layer Percentage of wound debrided: 100 Instrument Used: 3mm curette Tissue Removed: Fibrous, devitalized subcutaneous, biofilm, slough Severity: Fat Layer Exposed Amount of bleeding with debridement: Mild Bleeding Controlled with: Compression and gauze Patient tolerated procedure: Patient tolerated procedure well Post-Debridement Measurements and Additional Note: Post-Debridement Measurements/Treatment WC - Nurse 1 - General Ulcer Assessment Start: 10/17/23 09:30 Freq: Status: Active Protocol: WC.LOWEXT Activity Type Activity Date Activity User E-sign Co-sign Detail Recorded Client Recorded Date Recorded By Document 10/17/23 09:32 MT Desktop 10/17/23 09:40 MT Document 10/24/23 09:47 KW Desktop 10/24/23 09:55 KW Document 10/31/23 09:37 DL Desktop 10/31/23 09:47 DL 10/17/23 10/24/23 10/31/23 09:32 09:47 09:37 WC - Today's Visit Information Type of service Follow-up Visit Follow-up Visit 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 (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 (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 ) ) ) Arrival Mode Wheelchair Wheelchair Wheelchair Transfer Assistance None Patient Identification Verified (Name & Yes Yes Yes ) Patient Requires Transmission-Based No Precautions Safety Precautions Fall Prevention Finger Stick Blood Sugar(mg/dl) (if 110 indicated): Blood Sugar Stated by Patient Vital Signs Temperature (97.8 F-99.1 F) 96.6 F L 97.5 F L 98.3 F Temperature Source Temporal Temporal Temporal Pulse Rate (60-100) 79 91 70 Pulse Location Monitor Monitor Monitor Respiratory Rate (12-18) 18 18 18 Respiratory rate source Observation Observation Observation Oxygen Delivery Method Room Air Room Air Blood Pressure (90/60-120/80) 123/76 H 149/91 H 108/59 L Blood Pressure Mean (mm Hg) 91 110 75 Source Monitor Monitor Monitor Position Semi-Fowlers Semi-Fowlers Blood Pressure Location Left Arm Left Arm History Since Last Visit- (Skip if this is Patient's initial visit) Have you changed medications since your No No No last visit? Any new allergies or adverse reactions No No No Had a fall/change in ADL's that may No No No increase risk of falls Signs or symptoms of abuse and/or No No No neglect since last visit Have you been in the hospital since your No No No last visit? Has dressing in place as prescribed Yes Yes Yes Has compression in place as prescribed Yes Yes Has offloadiing in place as prescribed N/A Yes Experienced any changes in pain level or No No management Left Footwear No Footwear Slipper Right Footwear No Footwear Slipper Pain Scale: 0-10 Numeric Is Patient Pain Free? No Yes Yes RT Lat Ankle -Description Throbbing, Burning -Intensity 9 -Pain Behavior Grasping Site -Alleviating Factors/Interventions Medication WC - Nurse 1 - General Ulcer Measurement Start: 10/17/23 09:30 Freq: Status: Active Protocol: Activity Type Activity Date Activity User E-sign Co-sign Detail Recorded Client Recorded Date Recorded By Document 10/17/23 09:32 MT Desktop 10/17/23 09:40 MT Document 10/24/23 09:47 KW Desktop 10/24/23 09:55 KW Document 10/31/23 09:37 DL Desktop 10/31/23 09:47 DL 10/17/23 10/24/23 10/31/23 09:32 09:47 09:37 Wound Center Nurse 1 #1 R Lat Ankle -Current Size (cm) - Length 1.5 1.1 0.8 -Current Size (cm) - Width 1.2 0.5 0.4 -Current Size (cm) - Depth 0.5 0.3 -Total Square Cm 1.80 0.55 0.32 -Undermining/Tunneling Starts (O'clock 7 ) -Undermining/Tunneling Ends (O'clock) 4 -Maximum Distance (cm) 0.4 -Exudate Amt Medium Small Medium -Exudate Type Serosanguineous Serosanguineous Serosanguineous -Wound Margin Distinct, Thickened Thickened & Outline Rolled Under Attached -Granulation Amt Large (67-100%) Medium (34-66%) Small (1-33%) -Granulation Quality Red Red Red -Necrosis Amt Small (1-33%) Small (1-33%) Small (1-33%) -Necrotic Tissue Type Adherent Slough Adherent Slough Adherent Slough -Structure Exposed N/A -Texture (Lori-wound Skin Appearance) Assessed, Assessed, Scarring Localized Edema Localized Edema -Moisture (Lori-wound Skin Appearance) Assessed Assessed Maceration -Color (Lori-wound Skin Appearance) Assessed, Assessed Hemosiderin Hemosiderin Staining Staining -Temperature (Lori-wound Skin No Abnormality No Abnormality No Abnormality Appearance) (Pt Warm) (Pt Warm) (Pt Warm) -Tenderness on Palpation (Lori-wound No No Skin Appearance) -Ulcer Cleansing Rinsed/ Rinsed/ Soap and Water Irrigated with Irrigated with Saline Saline -Foul Odor after Cleansing No No -Anesthetic Used 5% Lidocaine 5% Lidocaine 5% Lidocaine Gel Gel Gel Right Calf (cm) 36 Right Ankle (cm) 22.7 WC - Nurse 2 - General Ulcer CM Notes Start: 10/17/23 09:30 Freq: Status: Active Protocol: Activity Type Activity Date Activity User E-sign Co-sign Detail Recorded Client Recorded Date Recorded By Document 10/17/23 10:13 [employer] 10/17/23 10:37 Refund Exchange Document 10/24/23 10:01 [employer] 10/24/23 10:15 Refund Exchange Document 10/31/23 09:59 Tilt Desktop 10/31/23 10:10 TiltF 10/17/23 10/24/23 10/31/23 10:13 10:01 09:59 Wound Center Nurse 2 #1 R Lat Ankle -Time 10:13 10:01 09:59 -Correct Patient Yes Yes Yes -Correct Side, Site, Position Yes Yes Yes -Correct Procedure Yes Yes Yes -Procedure Performed Yes Yes Yes -Type of Procedure Debridement Debridement Debridement -Clinical Debridement Subcutaneous Subcutaneous Subcutaneous -Tissue Removed Subcutaneous Subcutaneous Subcutaneous -Post Debridement (cm) - Length 1.5 1 0.9 -Post Debridement (cm) - Width 1.4 0.5 0.5 -Post Debridement (cm) - Depth 0.5 0.5 0.3 -Total Square (Post) (cm) 2.10 0.5 0.45 -Area of Debridement (cm) - Length 1.5 1 0.9 -Area of Debridement (cm) - Width 1.4 0.5 0.5 -Total Square (Area) (cm) 2.10 0.5 0.45 -Tunneling No No No -Undermining/Tunneling No No No -Circular Undermining No No No -Wound/Ulcer Outcome Not Healed Not Healed Not Healed -Ulcer Cleansing Rinsed/ Rinsed/ Rinsed/ Irrigated with Irrigated with Irrigated with Saline Saline Saline -Foul Odor after Cleansing No No No -Bioengineered Tissue No No -Injectable Lidocaine w/ Epi (%) 1 1 1 -Injectable Lidocaine w/ Epi (mls) 10 10 10 -Bleeding Controlled with Pressure Pressure Pressure -Treatment Response Procedure Procedure Procedure Tolerated Well Tolerated Well Tolerated Well -Assistive Device(s) Wheelchair -Debridement - Subq, 1st 20sq cm Yes Yes Yes Pain Scale: 0-10 Numeric Is Patient Pain Free? No No Yes RT Lat Ankle -Description Aching -Intensity 10 8 -Duration (hours) Acute Chronic -Pain Behavior Facial Grimacing -Pain Aggravating Factors Debridement Sitting, Debridement -Alleviating Factors/Interventions None Medication -Comments injected w/ given lidocaine injectable lido w/ epi prior to debridement WC - Nurse 3 - General Ulcer D/C NN Start: 10/17/23 09:30 Freq: Status: Active Protocol: Activity Type Activity Date Activity User E-sign Co-sign Detail Recorded Client Recorded Date Recorded By Document 10/17/23 10:51 Desktop 10/17/23 10:52 GM Document 10/24/23 10:22 [facility] Desktop 10/24/23 10:23 [facility] Document 10/31/23 11:54 DL [id number] 10/31/23 11:56 DL 10/17/23 10/24/23 10/31/23 10:51 10:22 11:54 Wound Care Center Nurse 3 #1 R Lat Ankle -Ulcer Cleansing Not Cleansed Rinsed/ Rinsed/ Irrigated with Irrigated with Saline Saline -Foul Odor after Cleansing No No No -Other Dressing dakins moist dakins gauze -Primary Dressing Covered/Secured with Dry Gauze,Dry Dry Gauze & Dry Gauze & Gauze & Roll Roll Gauze, Roll Gauze, Gauze,Secured Secured with Secured with with Tape Tape Tape -Other Covering abd ABD -Wound Comment(s) dakins soaked gauze then abd Right -Compression Wrap Daljit Wrap Daljit Wrap Daljit Wrap Treatment Response Procedure Procedure Tolerated Well Tolerated Well Pain Scale: 0-10 Numeric Is Patient Pain Free? Yes Yes Yes Teaching: Wound Center wound status -Person Taught Patient -Teaching Method Discussion -Response to teaching Verbalize understanding WC - Visit Discharge Discharge Condition Stable Stable Stable Ambulatory Status Wheelchair Wheelchair Wheelchair Transportation Private Auto ecf ECF Clinical Summary of Care Provided Yes Facility Type [facility] Facility Facility Orders Sent Yes Assessment/Plan Assessment/Plan (1) 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: CODE(S): L97.312 - Non-pressure chronic ulcer of right ankle with fat layer exposed (2) Diabetes mellitus with diabetic polyneuropathy: CODE(S): E11.42 - Type 2 diabetes mellitus with diabetic polyneuropathy (3) Tobacco abuse: CODE(S): Z72.0 - Tobacco use (4) Hyperlipidemia: CODE(S): E78.5 - Hyperlipidemia, unspecified (5) Ankle osteomyelitis, right: CODE(S): M86.9 - Osteomyelitis, unspecified PLAN: Plan Patient seen and evaluated Patient did have radiographs performed 09/26/2023 of the right ankle and foot demonstrating generalized osteopenia, soft tissue swelling, and mild arthritis of the first MTPJ and TNJ. Recent laboratory data demonstrates WBC 9.8, ESR 15, glucose 210. No recent A1cwas performed with last A1c of record 03/09/2019 which was 8% at this time. Recommended updating A1c. Wound cultures were obtained 09/26/2023 demonstrating MRSA positive. These cultures do reflect previous past cultures of MRSA positive from August and July 2023. Referral to Dr. Robbins was placed. Patient finished previously prescribed doxycycline 100 mg twice daily for [address] Laughlin. Ulceration was debrided as noted in the clinical panel above. Prior to debridement she was locally anesthetized proximal to the ulcerative site consisting of 10 cc 1% lidocaine with epinephrine with block to the sural nerve and superficial peroneal nerve. This is noted to improve patient's tolerance ofdebridement today. Ulceration to the right lateral ankle measures 0.9 cm x 0.5 cm x 0.3 cm. No localized signs of infection. Change was made in dressings forimprovement of source control and will continue this. Dakin's wet-to-dry dressing was applied to the lateral ankle. She is instructed to change dressingdaily. She is continuing oral antibiotic as instructed and has follow-up with infectious disease scheduled 11/20/23, as she missed appointment 10/30/23 due to confusion from her transportation service. There is noted visual improvement of the wound bed with more healthy granular tissue noted following application of the Dakin's and with continued antibiotics. There is noted improvement with reduction in size versus her previous visit. There is still significant amount of pain to palpation about the right lateral ankle and patient underwent MRI 10/11/[address] Laughlin. MRI on 10/11/2023 demonstrating lateral soft tissue swelling with skin thickening. There is focal defect consistent with wound. There is marrow edemaof the lateral malleolus and distal fibula, series 7 image 8. Impression: Osteomyelitis of the lateral malleolus of the distal fibula with soft tissue wound and swelling. I have reviewed this MRI series and do note the increased marrow edema of the lateral malleolus and series 7 image 8 but also an image 9. This does appear to be at the outer portion of the cortex of the bone as the remaining images do not demonstrate increased signal. I did discuss these images in detail with the patient today in addition to findings with concern forosteomyelitis. I did discuss possible surgical options with the patient in detail 10/17/2023. All options were discussed with the patient in detail including risks and benefits of each procedure. Discussed risk of BKA with patient today. Patient is understanding of this but would like to save the right lower extremity.. Also discussed possible treatment with IV antibiotics and aggressive surgical debridement of the soft tissue. Patient at this time would like to take time toconsider options as she is on the oral antibiotic in addition to further discussion with infectious disease. Previous culture results of MRSA positive were reviewed. Due to the patient unable to get into infectious disease I did initiate outpatient oral antibiotic therapy on 10/17/2023. Rx doxycycline 100 mg twice daily x 14 days and Rx levofloxacin 750 mg twice daily x 14 days. Antibiotic stop date for first round10/31/2023. This antibiotic regimen was extended due to next infectious disease appointment on 11/20/2023 with new stop date of antibiotics 11/15/2023. Recommendedprobiotic use with antibiotic and to take with food. She continues to take antibiotics as instructed and there is noted improvement in her wound with continued decrease in size and more healthy appearing tissue. Recommended adequate protein intake to aid in wound healing. Solomon supplementation is also recommended. Discussed with patient continue proper diabetic diet to aid in wound healing andprovide good glycemic control. Discussed glycemic control and lowering of her blood sugar/A1c is important to aid in wound healing. She was again reminded to continue to wear proper fitting shoe gear and to ensure shoe gear is worn at all times for protection of the foot as she is diabetic with significant diminished sensation secondary to peripheral polyneuropathy. Discussed with patient the need for smoking cessation. Discussed impacts of wound healing from her smoking. Discussed with smoking blood flow is diminishedto vital organs and extremities which is essential for her wound healing, in addition to affecting oxygen content/saturation of the bloodstream which is alsoessential for wound healing. Discussed smoking cessation aids today and these were offered. Recommended continued discussion with her primary care physician to aid her in smoking cessation. 5 minutes total was spent on discussion 10/03/23. I discussed signs and symptoms of infection today. Discussed if she notices increasing redness of the skin about the ulcerative site moving up the leg, purulent drainage from the wound site, increasing foul odor from the wound, or if she develops fever greater than 101 degree accompanied by nausea, vomiting, chills that these are signs of a progressing infection and she should report to the ED for IV antibiotics and further evaluation. Patient voices understanding of this. The following work up and care recommendations were made: Dressing: Dakin's wet-to-dry dressing. Change daily Wash: Soap and water Tissue growth optimization: Dakin's Offload: Padded protective dressing of the lateral ankle. Recommended waffle offloading boot while in bed. Vascular: DP and PT pulses weakly palpable bilateral. Monophasic Doppler to left pedal pulses. Edema: Mild edema noted to the lower extremities. Recommended continued Tubigrip compression with elevation of lower extremities. Infection: Osteomyelitis confirmed of the distal lateral malleolus by MRI 10/11/2023. She does demonstrate positive MRSA cultures and is currently on doxycycline and levofloxacin for 14 days, this was extended (stop date now for 11/15/23). Referral to infectious disease, next appointment 11/20/23. Pain: May take [id number] Tylenol for discomfort Host factors: DM type II with peripheral polyneuropathy, MRSA positive cultures,edema, chronic tobacco abuse. I answered all the patient's questions. To return to the wound healing center in 1 week or call sooner if the patient has any questions or concerns. 10/31/23 1237 <Electronically signed by Karthikeyan Grove DPM> Cosigner Signature (if applicable): CC: ~ Signed [facility] Work Phone: [phone] Progress note Author Karthikeyan Grove [facility] October 24, 2023 11:03am Note Date/Time October 24, 2023 10: 01am [facility] [address] [place] [address] Progress Note - Wound Care 10/24/23 1000 MR#: [id number] Acct: [id number] Name: JULIANA MERIDA Rep #:[id number] : 1960 63 From: Karthikeyan tavares DPM PCP: Bianca Palomares MD Status:REG RCR Location: History of Present Illness Date of Service: 10/24/23 Chief Complaint: Non healing right ankle ulcer History of Wound: Ms. Merida is a 62-year-old who was referred to this facility due to nonhealing right lateral ankle ulcer. Noted a year ago, started out as abullae and subsequently opened up. She states that over the years, she has had alginate and collagen dressings done at her facility without any significant improvement. History of diabetes mellitus, she is not sure of her most recent A1c but states that it has ranged from 8-13. Also history of tobacco use, smokes daily. There is significant pain around the ulcer but she denies otherwise significant leg pain. Does not wear compression. Mostly sedentary but sleeps in the bed. She feels well otherwise, no chills, fever, nausea, vomiting or change in bowel habit reported. Subjective Subjective This is a 63-year-old female who continues to follow to the wound care center for a right lateral ankle ulceration. Patient is assisted by wheelchair today. She states she is taking the antibiotics as instructed and will meet with infectious disease next week. Nursing facility has assisted in her dressing changes daily. She states the right ankle is painful. She denies constitutionalsymptoms. Denies further complaints. Objective Data Objective Data Vital Signs: Vital Signs Temp Pulse Resp BP O2 Del Method 97.5 F L 91 18 149/91 H Room Air 10/24/23 09:47 10/24/23 09:47 10/24/23 09:47 10/24/23 09:47 10/24/23 09:47 Oxygen Delivery Method Room Air Physical Exam Const alert, oriented x3 and no apparent distress General Appearance: cooperative HEENT normocephalic Eyes General Eye: normal appearance of both eyes Neck General: normal visual inspection Lymph Lymphatic: no lymphadenopathy noted and no lymphedema noted Resp normal respiratory effort Cardio regular rate and regular rhythm Extremity normal capillary refill, no joint enlargement, no calf tenderness and no pedal edema Extremity Narrative: Vascular: DP and PT pulses palpable. Capillary fill time less than 5 seconds todigits. Normal temperature gradient. Hair growth is absent to digits/foot. Neurologic: Light touch sensation diminished. Gross sensation intact. Protective sensation is significantly diminished secondary to diabetic peripheral polyneuropathy. Dermatologic: Skin does appear well-hydrated. Skin is soft, supple, normal turgor. Right lateral ankle demonstrates ulceration distal to the lateral malleolus to the level of the subcutaneous tissue with mixed fibrogranular layerand serosanguineous drainage with hyperpigmented rim. Ulceration demonstrates no malodor, no purulent drainage, no localized erythema, no increased temperature, no palpable fluctuance/bogginess, no visible abscess formation. Musculoskeletal: Patient is in wheelchair and does have decreased muscle strength of the lower extremities bilateral. Skin no rashes or lesions noted, skin turgor normal and no jaundice Neuro moves all extremities Debridement Note Debridement Note Wound debrided: Right lateral ankle Laterality: Right Wound Grade/Stage: Esqueda stage I Type of Debridement: Excisional debridement Anesthesia Used: 5% Lidocaine Gel and - (10 cc 1 1% lidocaine with epinephrine) Depth: Down to and including healthy tissue and in the subcutaneous layer Percentage of wound debrided: 100 Instrument Used: 5mm curette Tissue Removed: Fibrous, devitalized subcutaneous, biofilm, slough Severity: Fat Layer Exposed Amount of bleeding with debridement: Mild Bleeding Controlled with: Compression and gauze Patient tolerated procedure: Patient tolerated procedure well Post-Debridement Measurements and Additional Note: Post-Debridement Measurements/Treatment - Nurse 1 - General Ulcer Assessment Start: 10/17/23 09:30 Freq: Status: Active Protocol: .LOWEXT Activity Type Activity Date Activity User E-sign Co-sign Detail Recorded Client Recorded Date Recorded By Document 10/17/23 09:32 MT Desktop 10/17/23 09:40 MT Document 10/24/23 09:47 KW Desktop 10/24/23 09:55 KW 10/17/23 10/24/23 09:32 09:47 - Today's Visit Information Type of service Follow-up Visit 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 (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 ) ) Arrival Mode Wheelchair Wheelchair Patient Identification Verified (Name & Yes Yes ) Safety Precautions Fall Prevention Vital Signs Temperature (97.8 F-99.1 F) 96.6 F L 97.5 F L Temperature Source Temporal Temporal Pulse Rate (60-100) 79 91 Pulse Location Monitor Monitor Respiratory Rate (12-18) 18 18 Respiratory rate source Observation Observation Oxygen Delivery Method Room Air Room Air Blood Pressure (90/60-120/80) 123/76 H 149/91 H Blood Pressure Mean (mm Hg) 91 110 Source Monitor Monitor Position Semi-Fowlers Semi-Fowlers Blood Pressure Location Left Arm Left Arm History Since Last Visit- (Skip if this is Patient's initial visit) Have you changed medications since your No No last visit? Any new allergies or adverse reactions No No Had a fall/change in ADL's that may No No increase risk of falls Signs or symptoms of abuse and/or No No neglect since last visit Have you been in the hospital since your No No last visit? Has dressing in place as prescribed Yes Yes Has compression in place as prescribed Yes Has offloadiing in place as prescribed N/A Experienced any changes in pain level or No management Left Footwear No Footwear Slipper Right Footwear No Footwear Slipper Pain Scale: 0-10 Numeric Is Patient Pain Free? No Yes RT Lat Ankle -Description Throbbing, Burning -Intensity 9 -Pain Behavior Grasping Site -Alleviating Factors/Interventions Medication WC - Nurse 1 - General Ulcer Measurement Start: 10/17/23 09:30 Freq: Status: Active Protocol: Activity Type Activity Date Activity User E-sign Co-sign Detail Recorded Client Recorded Date Recorded By Document 10/17/23 09:32 MT Desktop 10/17/23 09:40 MT Document 10/24/23 09:47 KW Desktop 10/24/23 09:55 KW 10/17/23 10/24/23 09:32 09:47 Wound Center Nurse 1 #1 R Lat Ankle -Current Size (cm) - Length 1.5 1.1 -Current Size (cm) - Width 1.2 0.5 -Current Size (cm) - Depth 0.5 -Total Square Cm 1.80 0.55 -Exudate Amt Medium Small -Exudate Type Serosanguineous Serosanguineous -Wound Margin Distinct, Thickened Outline Attached -Granulation Amt Large (67-100%) Medium (34-66%) -Granulation Quality Red Red -Necrosis Amt Small (1-33%) Small (1-33%) -Necrotic Tissue Type Adherent Slough Adherent Slough -Texture (Lori-wound Skin Appearance) Assessed, Assessed, Localized Edema Localized Edema -Moisture (Lori-wound Skin Appearance) Assessed Assessed -Color (Lori-wound Skin Appearance) Assessed, Assessed Hemosiderin Staining -Temperature (Lori-wound Skin No Abnormality No Abnormality Appearance) (Pt Warm) (Pt Warm) -Tenderness on Palpation (Lori-wound No Skin Appearance) -Ulcer Cleansing Rinsed/ Rinsed/ Irrigated with Irrigated with Saline Saline -Foul Odor after Cleansing No -Anesthetic Used 5% Lidocaine 5% Lidocaine Gel Gel WC - Nurse 2 - General Ulcer CM Notes Start: 10/17/23 09:30 Freq: Status: Active Protocol: Activity Type Activity Date Activity User E-sign Co-sign Detail Recorded Client Recorded Date Recorded By Document 10/17/23 10:13 [facility] Desktop 10/17/23 10:37 [facility] 10/17/23 10:13 Wound Center Nurse 2 -Time 10:13 -Correct Patient Yes -Correct Side, Site, Position Yes -Correct Procedure Yes -Procedure Performed Yes -Type of Procedure Debridement -Clinical Debridement Subcutaneous -Tissue Removed Subcutaneous -Post Debridement (cm) - Length 1.5 -Post Debridement (cm) - Width 1.4 -Post Debridement (cm) - Depth 0.5 -Total Square (Post) (cm) 2.10 -Area of Debridement (cm) - Length 1.5 -Area of Debridement (cm) - Width 1.4 -Total Square (Area) (cm) 2.10 -Tunneling No -Undermining/Tunneling No -Circular Undermining No -Wound/Ulcer Outcome Not Healed -Ulcer Cleansing Rinsed/ Irrigated with Saline -Foul Odor after Cleansing No -Bioengineered Tissue No -Injectable Lidocaine w/ Epi (%) 1 -Injectable Lidocaine w/ Epi (mls) 10 -Bleeding Controlled with Pressure -Treatment Response Procedure Tolerated Well -Assistive Device(s) Wheelchair -Debridement - Subq, 1st 20sq cm Yes Pain Scale: 0-10 Numeric Is Patient Pain Free? No RT Lat Ankle -Intensity 10 -Duration (hours) Acute -Pain Aggravating Factors Debridement -Alleviating Factors/Interventions None -Comments injected w/ lidocaine WC - Nurse 3 - General Ulcer D/C NN Start: 10/17/23 09:30 Freq: Status: Active Protocol: Activity Type Activity Date Activity User E-sign Co-sign Detail Recorded Client Recorded Date Recorded By Document 10/17/23 10:51 Desktop 10/17/23 10:52 GM 10/17/23 10:51 Wound Care Center Nurse 3 #1 R Lat Ankle -Ulcer Cleansing Not Cleansed -Foul Odor after Cleansing No -Primary Dressing Covered/Secured with Dry Gauze,Dry Gauze & Roll Gauze,Secured with Tape -Wound Comment(s) dakins soaked gauze then abd Right -Compression Wrap Daljit Wrap Pain Scale: 0-10 Numeric Is Patient Pain Free? 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 Laughlin who is out of office today. I have reviewed previous records and diagnostic data. Patient did have radiographs performed 09/26/2023 of the right ankle and foot demonstrating generalized osteopenia, soft tissue swelling, and mild arthritis of the first MTPJ and TNJ. Recent laboratory data demonstrates WBC 9.8, ESR 15, glucose 210. No recent A1cwas performed with last A1c of record 03/09/2019 which was 8% at this time. Recommended updating A1c. Wound cultures were obtained 09/26/2023 demonstrating MRSA positive. These cultures do reflect previous past cultures of MRSA positive from August and July 2023. Recommended referral to Dr. Robbins. Patient finished doxycycline 100 mg twice daily for 7 days. I do feel antibiotic should be extended versus possibly switching to linezolid either outpatient or via PICC. Ulceration was debrided as noted in the clinical panel above. Prior to debridement she was locally anesthetized proximal to the ulcerative site consistingof 10 cc 1% lidocaine with epinephrine with block to the sural nerve and superficial peroneal nerve. This is noted to improve patient's tolerance of debridement today. Ulceration to the right lateral ankle measures 1.0 cm x 0.5 cm x 0.5 cm. No localized signs of infection. Change was made in dressings forimprovement of source control and will continue this. Dakin's wet-to-dry dressing was applied to the lateral ankle. She is instructed to change dressingdaily. She finished oral antibiotic as instructed and has follow-up with infectious disease scheduled 10/30/23. There is noted visual improvement of the wound bed with more healthy granular tissue noted following application of the Dakin's. There is noted improvement with reduction in size versus her previous visit. There is still significant amount of pain to palpation about the right lateral ankle and patient underwent MRI 10/11/[address] Laughlin. MRI on 10/11/2023 demonstrating lateral soft tissue swelling with skin thickening. There is focal defect consistent with wound. There is marrow edemaof the lateral malleolus and distal fibula, series 7 image 8. Impression: Osteomyelitis of the lateral malleolus of the distal fibula with soft tissue wound and swelling. I have reviewed this MRI series and do note the increased marrow edema of the lateral malleolus and series 7 image 8 but also an image 9. This does appear to be at the outer portion of the cortex of the bone as the remaining images do not demonstrate increased signal. I did discuss these images in detail with the patient today in addition to findings with concern forosteomyelitis. I did discuss possible surgical options with the patient in detail 10/17/2023. All options were discussed with the patient in detail including risks and benefits of each procedure. Discussed risk of BKA with patient today. Patient is understanding of this but would like to save the right lower extremity.. Also discussed possible treatment with IV antibiotics and aggressive surgical debridement of the soft tissue. Patient at this time would like to take time toconsider options as she is on the oral antibiotic in addition to further discussion with infectious disease. Previous culture results of MRSA positive were reviewed. Due to the patient unable to get into infectious disease for next 2 weeks I did initiate outpatientoral antibiotic therapy on 10/17/2023. Rx doxycycline 100 mg twice daily x 14 days and Rx levofloxacin 750 mg twice daily x 14 days. Antibiotic stop date 10/31/2023. Recommended probiotic use with antibiotic and to take with food. She continues to take antibiotics as instructed and there is noted improvement in her wound with decrease in size and more healthy appearing tissue. Recommended adequate protein intake to aid in wound healing. Solomon supplementation is also recommended. Discussed with patient continue proper diabetic diet to aid in wound healing andprovide good glycemic control. Discussed glycemic control and lowering of her blood sugar/A1c is important to aid in wound healing. She was again reminded to continue to wear proper fitting shoe gear and to ensure shoe gear is worn at all times for protection of the foot as she is diabetic with significant diminished sensation secondary to peripheral polyneuropathy. Discussed with patient the need for smoking cessation. Discussed impacts of wound healing from her smoking. Discussed with smoking blood flow is diminishedto vital organs and extremities which is essential for her wound healing, in addition to affecting oxygen content/saturation of the bloodstream which is alsoessential for wound healing. Discussed smoking cessation aids today and these were offered. Recommended continued discussion with her primary care physician to aid her in smoking cessation. 5 minutes total was spent on discussion 10/03/23. I discussed signs and symptoms of infection today. Discussed if she notices increasing redness of the skin about the ulcerative site moving up the leg, purulent drainage from the wound site, increasing foul odor from the wound, or if she develops fever greater than 101 degree accompanied by nausea, vomiting, chills that these are signs of a progressing infection and she should report to the ED for IV antibiotics and further evaluation. Patient voices understanding of this. The following work up and care recommendations were made: Dressing: Dakin's wet-to-dry dressing. Change daily Wash: Soap and water Tissue growth optimization: Dakin's Offload: Padded protective dressing of the lateral ankle. Recommended waffle offloading boot while in bed. Vascular: DP and PT pulses weakly palpable bilateral. Monophasic Doppler to left pedal pulses. Edema: Mild edema noted to the lower extremities. Recommended continued Tubigrip compression with elevation of lower extremities. Infection: Osteomyelitis confirmed of the distal lateral malleolus by MRI 10/11/2023. She does demonstrate positive MRSA cultures and is currently on doxycycline and levofloxacin for 14 days (stop date for 10/31/23). Recommended referral to infectious disease. Pain: May take [id number] Tylenol for discomfort Host factors: DM type II with peripheral polyneuropathy, MRSA positive cultures,edema, chronic tobacco abuse. I answered all the patient's questions. To return to the wound healing center in 1 week or call sooner if the patient has any questions or concerns. 10/24/23 1103 <Electronically signed by Karthikeyan Grove DPM> Cosigner Signature (if applicable): CC: ~ Signed [facility] Work Phone: [phone] Progress note Author Karthikeyan Grove [facility] October 17, 2023 7:55pm Note Date/Time October 17, 2023 10:4 2am [facility] [address] [place] [address] Progress Note - Wound Care 10/17/23 1038 MR#: [id number] Acct: [id number] Name: JULIANA MERIDA Rep #:[id number] : 1960 63 From: Karthikeyan tavares DPM PCP: Bianca Palomares MD Status:REG RCR Location: History of Present Illness Date of Service: 10/17/23 Chief Complaint: Non healing right ankle ulcer History of Wound: Ms. Merida is a 62-year-old who was referred to this facility due to nonhealing right lateral ankle ulcer. Noted a year ago, started out as abullae and subsequently opened up. She states that over the years, she has had alginate and collagen dressings done at her facility without any significant improvement. History of diabetes mellitus, she is not sure of her most recent A1c but states that it has ranged from 8-13. Also history of tobacco use, smokes daily. There is significant pain around the ulcer but she denies otherwise significant leg pain. Does not wear compression. Mostly sedentary but sleeps in the bed. She feels well otherwise, no chills, fever, nausea, vomiting or change in bowel habit reported. Subjective Subjective This is a 63-year-old female who continues to follow to the wound care center for a right lateral ankle ulceration. Patient is assisted by wheelchair today. Patient states she underwent MRI 10/11/2023 to evaluate right lower extremity ulceration. Nursing facility has assisted in her dressing changes daily. She states the right ankle is painful. She denies constitutional symptoms. Denies further complaints. Objective Data Objective Data Vital Signs: Vital Signs Temp Pulse Resp BP O2 Del Method 96.6 F L 79 18 123/76 H Room Air 10/17/23 09:32 10/17/23 09:32 10/17/23 09:32 10/17/23 09:32 10/17/23 09:32 Oxygen Delivery Method Room Air Physical Exam Const alert, oriented x3 and no apparent distress General Appearance: cooperative HEENT normocephalic Eyes General Eye: normal appearance of both eyes Neck General: normal visual inspection Lymph Lymphatic: no lymphadenopathy noted and no lymphedema noted Resp normal respiratory effort Cardio regular rate and regular rhythm Extremity normal capillary refill, no joint enlargement, no calf tenderness and no pedal edema Extremity Narrative: Vascular: DP and PT pulses palpable. Capillary fill time less than 5 seconds todigits. Normal temperature gradient. Hair growth is absent to digits/foot. Neurologic: Light touch sensation diminished. Gross sensation intact. Protective sensation is significantly diminished secondary to diabetic peripheral polyneuropathy. Dermatologic: Skin does appear well-hydrated. Skin is soft, supple, normal turgor. Right lateral ankle demonstrates ulceration distal to the lateral malleolus to the level of the subcutaneous tissue with mixed fibrogranular layerand serosanguineous drainage with hyperpigmented rim. Ulceration demonstrates no malodor, no purulent drainage, no localized erythema, no increased temperature, no palpable fluctuance/bogginess, no visible abscess formation. Musculoskeletal: Patient is in wheelchair and does have decreased muscle strength of the lower extremities bilateral. Skin no rashes or lesions noted, skin turgor normal and no jaundice Neuro moves all extremities Debridement Note Debridement Note Wound debrided: Right lateral ankle Laterality: Right Wound Grade/Stage: Esqueda stage II Type of Debridement: Excisional debridement Anesthesia Used: 5% Lidocaine Gel Depth: Down to and including healthy tissue and in the subcutaneous layer Percentage of wound debrided: 100 Instrument Used: 5mm curette Tissue Removed: Fibrous, devitalized subcutaneous, biofilm, slough Severity: Fat Layer Exposed Amount of bleeding with debridement: Mild Bleeding Controlled with: Compression and gauze Patient tolerated procedure: Patient tolerated procedure well Post-Debridement Measurements and Additional Note: Post-Debridement Measurements/Treatment WC - Nurse 1 - General Ulcer Assessment Start: 10/17/23 09:30 Freq: Status: Active Protocol: CLOVIS Activity Type Activity Date Activity User E-sign Co-sign Detail Recorded Client Recorded Date Recorded By Document 10/17/23 09:32 IA Desktop 10/17/23 09:40 IA 10/17/23 09:32 - Today's Visit Information Type of service 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 Any new allergies or adverse reactions No Had a fall/change in ADL's that may No increase risk of falls Signs or symptoms of abuse and/or No neglect since last visit Have you been in the hospital since your No last visit? Has dressing in place as prescribed Yes Has compression in place as prescribed Yes Has offloadiing in place as prescribed N/A Experienced any changes in pain level or No management Left Footwear No Footwear Right Footwear No Footwear Pain Scale: 0-10 Numeric Is Patient Pain Free? No RT Lat Ankle -Description Throbbing, Burning -Intensity 9 -Pain Behavior Grasping Site -Alleviating Factors/Interventions Medication - Nurse 1 - General Ulcer Measurement Start: 10/17/23 09:30 Freq: Status: Active Protocol: Activity Type Activity Date Activity User E-sign Co-sign Detail Recorded Client Recorded Date Recorded By Document 10/17/23 09:32 IA [employer] 10/17/23 09:40 IA 10/17/23 09:32 Wound Center Nurse 1 #1 R Lat Ankle -Current Size (cm) - Length 1.5 -Current Size (cm) - Width 1.2 -Current Size (cm) - Depth 0.5 -Total Square Cm 1.80 -Exudate Amt Medium -Exudate Type Serosanguineous -Wound Margin Distinct, Outline Attached -Granulation Amt Large (67-100%) -Granulation Quality Red -Necrosis Amt Small (1-33%) -Necrotic Tissue Type Adherent Slough -Texture (Lori-wound Skin Appearance) Assessed, Localized Edema -Moisture (Lori-wound Skin Appearance) Assessed -Color (Lori-wound Skin Appearance) Assessed, Hemosiderin Staining -Temperature (Lori-wound Skin No Abnormality Appearance) (Pt Warm) -Tenderness on Palpation (Lori-wound No Skin Appearance) -Ulcer Cleansing Rinsed/ Irrigated with Saline -Foul Odor after Cleansing No -Anesthetic Used 5% Lidocaine Gel WC - Nurse 2 - General Ulcer CM Notes Start: 10/17/23 09:30 Freq: Status: Active Protocol: Activity Type Activity Date Activity User E-sign Co-sign Detail Recorded Client Recorded Date Recorded By Document 10/17/23 10:13 [facility] Desktop 10/17/23 10:37 [facility] 10/17/23 10:13 Wound Center Nurse 2 -Time 10:13 -Correct Patient Yes -Correct Side, Site, Position Yes -Correct Procedure Yes -Procedure Performed Yes -Type of Procedure Debridement -Clinical Debridement Subcutaneous -Tissue Removed Subcutaneous -Post Debridement (cm) - Length 1.5 -Post Debridement (cm) - Width 1.4 -Post Debridement (cm) - Depth 0.5 -Total Square (Post) (cm) 2.10 -Area of Debridement (cm) - Length 1.5 -Area of Debridement (cm) - Width 1.4 -Total Square (Area) (cm) 2.10 -Tunneling No -Undermining/Tunneling No -Circular Undermining No -Wound/Ulcer Outcome Not Healed -Ulcer Cleansing Rinsed/ Irrigated with Saline -Foul Odor after Cleansing No -Bioengineered Tissue No -Injectable Lidocaine w/ Epi (%) 1 -Injectable Lidocaine w/ Epi (mls) 10 -Bleeding Controlled with Pressure -Treatment Response Procedure Tolerated Well -Assistive Device(s) Wheelchair -Debridement - Subq, 1st 20sq cm Yes Pain Scale: 0-10 Numeric Is Patient Pain Free? 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 Laughlin who is out of office today. I have reviewed previous records and diagnostic data. Patient did have radiographs performed 09/26/2023 of the right ankle and foot demonstrating generalized osteopenia, soft tissue swelling, and mild arthritis of the first MTPJ and TNJ. Recent laboratory data demonstrates WBC 9.8, ESR 15, glucose 210. No recent A1cwas performed with last A1c of record 03/09/2019 which was 8% at this time. Recommended updating A1c today. Wound cultures were obtained 09/26/2023 demonstrating MRSA positive. These cultures do reflect previous past cultures of MRSA positive from August and July 2023. Recommended referral to Dr. Robbins. Patient currently on doxycycline 100 mg twice daily for 7 days. I do feel antibiotic should be extended versus possibly switching to linezolid either outpatient or via PICC. Ulceration was debrided as noted in the clinical panel above. Prior to debridement she was locally anesthetized proximal to the ulcerative site consisting of 10 cc 1% lidocaine with epinephrine with block to the sural nerve and superficial peroneal nerve. This is noted to improve patient's tolerance ofdebridement today. Ulceration to the right lateral ankle measures 1.5 cm x 1.4 cm x 0.5 cm. No localized signs of infection. Change was made in dressings forimprovement of source control and will continue this. Dakin's wet-to-dry dressing was applied to the lateral ankle. She is instructed to change dressingdaily. She finished oral antibiotic as instructed and has follow-up with infectious disease scheduled 10/30/23. There is noted visual improvement of the wound bed with more healthy granular tissue noted following application of the Dakin's. There is still significant amount of pain to palpation about the right lateral ankle and patient will undergo MRI which has been scheduled for 10/11/[address] Laughlin. Patient did undergo MRI on 10/11/2023 demonstrating lateral soft tissue swellingwith skin thickening. There is focal defect consistent with wound. There is marrow edema of the lateral malleolus and distal fibula, series 7 image 8. Impression: Osteomyelitis of the lateral malleolus of the distal fibula with soft tissue wound and swelling. I have reviewed this MRI series and do note the increased marrow edema of the lateral malleolus and series 7 image 8 but also animage 9. This does appear to be at the outer portion of the cortex of the bone as the remaining images do not demonstrate increased signal. I did discuss these images in detail with the patient today in addition to findings with concern for osteomyelitis. I did discuss possible surgical options with the patient in detail today. All options were discussed with the patient in detail including risks and benefits of each procedure. Discussed risk of BKA with patient today. Patient is understanding of this but would like to save the right lower extremity.. Also discussed possible treatment with IV antibiotics and aggressive surgical debridement of the soft tissue. Patient at this time would like to take time toconsider options as she is on the oral antibiotic in addition to further discussion with infectious disease. Previous culture results of MRSA positive were reviewed. Due to the patient unable to get into infectious disease for next 2 weeks I did initiate outpatientoral antibiotic therapy today. Rx doxycycline 100 mg twice daily x 14 days and Rx levofloxacin 750 mg twice daily x 14 days. Antibiotic stop date 10/31/2023. Recommended probiotic use with antibiotic and to take with food. Recommended adequate protein intake to aid in wound healing. Solomon supplementation is also recommended. Discussed with patient continue proper diabetic diet to aid in wound healing andprovide good glycemic control. Discussed glycemic control and lowering of her blood sugar/A1c is important to aid in wound healing. She was again reminded to continue to wear proper fitting shoe gear and to ensure shoe gear is worn at all times for protection of the foot as she is diabetic with significant diminished sensation secondary to peripheral polyneuropathy. Discussed with patient the need for smoking cessation. Discussed impacts of wound healing from her smoking. Discussed with smoking blood flow is diminishedto vital organs and extremities which is essential for her wound healing, in addition to affecting oxygen content/saturation of the bloodstream which is alsoessential for wound healing. Discussed smoking cessation aids today and these were offered. Recommended continued discussion with her primary care physician to aid her in smoking cessation. 5 minutes total was spent on discussion 10/03/23. I discussed signs and symptoms of infection today. Discussed if she notices increasing redness of the skin about the ulcerative site moving up the leg, purulent drainage from the wound site, increasing foul odor from the wound, or if she develops fever greater than 101 degree accompanied by nausea, vomiting, chills that these are signs of a progressing infection and she should report to the ED for IV antibiotics and further evaluation. Patient voices understanding of this. The following work up and care recommendations were made: Dressing: Dakin's wet-to-dry dressing. Change daily Wash: Soap and water Tissue growth optimization: Dakin's Offload: Padded protective dressing of the lateral ankle. Recommended waffle offloading boot while in bed. Vascular: DP and PT pulses weakly palpable bilateral. Monophasic Doppler to left pedal pulses. Edema: Mild edema noted to the lower extremities. Recommended continued Tubigrip compression with elevation of lower extremities. Infection: Osteomyelitis confirmed of the distal lateral malleolus by MRI 10/11/2023. She does demonstrate positive MRSA cultures and is currently on doxycycline and levofloxacin for 14 days (stop date for 10/31/23). Recommended referral to infectious disease. Pain: May take [id number] Tylenol for discomfort Host factors: DM type II with peripheral polyneuropathy, MRSA positive cultures,edema, chronic tobacco abuse. I answered all the patient's questions. To return to the wound healing center in 1 week or call sooner if the patient has any questions or concerns. 10/17/231954 <Electronically signed by Karthikeyan Grove DPM> Cosigner Signature (if applicable): CC: ~ Signed [facility] Work Phone: 1(781) 131-394203-28-2024 Progress note Author Karthikeyan Grove [facility] October 10, 2023 6:59pm Note Date/Time October 10, 2023 10: 34am [facility] [address] [place] [address] Progress Note - Wound Care 10/10/23 1031 MR#: [id number] Acct: [id number] Name: JULIANA MERIDA Rep #:[id number] : 1960 63 From: Karthikeyan tavares DPM PCP: Bianca Palomares MD Status:REG RCR Location: History of Present Illness Date of Service: 10/10/23 Chief Complaint: Non healing right ankle ulcer History of Wound: Ms. Merida is a 62-year-old who was referred to this facility due to nonhealing right lateral ankle ulcer. Noted a year ago, started out as abullae and subsequently opened up. She states that over the years, she has had alginate and collagen dressings done at her facility without any significant improvement. History of diabetes mellitus, she is not sure of her most recent A1cbut states that it has ranged from 8-13. Also history of tobacco use, smokes daily. There is significant pain around the ulcer but she denies otherwise significant leg pain. Does not wear compression. Mostly sedentary but sleeps in the bed. She feels well otherwise, no chills, fever, nausea, vomiting or change in bowel habit reported. Progress of Wound: Lori ulcer maceration and break down. Patient states that she had increased drainage and pain all week. No chills, fever or otherwise feeling of unwell reported. Subjective Subjective This is a 63-year-old female who continues to follow to the wound care center for a right lateral ankle ulceration. Patient is assisted by wheelchair today. Patient states she has an MRI coming up 10/11/2023 to evaluate right lower extremity. Nursing facility has assisted in her dressing changes daily. She states the right ankle is painful. She denies constitutional symptoms. Denies further complaints. Objective Data Objective Data Vital Signs: Vital Signs Temp Pulse Resp BP O2 Del Method 97.4 F L 80 18 113/52 L Room Air 10/10/23 09:50 10/10/23 09:50 10/10/23 09:50 10/10/23 09:50 10/03/23 09:41 Oxygen Delivery Method Room Air Lab / Micro Data 09/26/23 11:34 09/26/23 11:34 Micro: Microbiology 09/26/23 13:50 Wound Abcess - Ankle Gram Stain - Final 09/26/23 13:50 Wound Abcess - Ankle Wound Culture - Final Meth. resistant Staph. aureus 09/26/23 13:50 Wound Abcess - Ankle Anaerobic Culture - Final No anaerobic bacteria isolated. Physical Exam Const alert, oriented x3 and no apparent distress General Appearance: cooperative HEENT normocephalic Eyes General Eye: normal appearance of both eyes Neck General: normal visual inspection Lymph Lymphatic: no lymphadenopathy noted and no lymphedema noted Resp normal respiratory effort Cardio regular rate and regular rhythm Extremity normal capillary refill, no joint enlargement, no calf tenderness and no pedal edema Extremity Narrative: Right lower extremity: Vascular: DP and PT pulses palpable. Capillary fill time less than 5 seconds todigits. Normal temperature gradient. Hair growth is absent to digits/foot. Neurologic: Light touch sensation diminished. Gross sensation intact. Protective sensation is significantly diminished secondary to diabetic peripheral polyneuropathy. Dermatologic: Skin does appear well-hydrated. Skin is soft, supple, normal turgor. Right lateral ankle demonstrates ulceration distal to the lateral malleolus to the level of the subcutaneous tissue with mixed fibrogranular layerand serosanguineous drainage. Ulceration demonstrates no malodor, no purulent drainage, no localized erythema, no increased temperature, no palpable fluctuance/bogginess, no visible abscess formation. Musculoskeletal: Patient is in wheelchair and does have decreased muscle strength of the lower extremities bilateral. Debridement Note Debridement Note Wound debrided: Right lateral ankle Laterality: Right Wound Grade/Stage: Esqueda stage I Type of Debridement: Excisional debridement Anesthesia Used: 5% Lidocaine Gel and - (10 cc 1% lidocaine with epinephrine) Depth: Down to and including healthy tissue and in the subcutaneous layer Percentage of wound debrided: 100 Instrument Used: 5mm curette Tissue Removed: Fibrous, devitalized subcutaneous, biofilm, slough Severity: Fat Layer Exposed Amount of bleeding with debridement: Mild Bleeding Controlled with: Compression and gauze Patient tolerated procedure: Patient tolerated procedure well Post-Debridement Measurements and Additional Note: Post-Debridement Measurements/Treatment RUY - Nurse 1 - General Ulcer Assessment Start: 09/19/23 09:30 Freq: Status: Active Protocol: CLOVIS Activity Type Activity Date Activity User E-sign Co-sign Detail Recorded Client Recorded Date Recorded By Document 09/19/23 09:30 RB Desktop 09/19/23 09:32 RB Document 09/26/23 10:12 RB Desktop 09/26/23 10:15 RB Document 10/03/23 09:41 GM Desktop 10/03/23 09:51 GM Document 10/10/23 09:50 DL Desktop 10/10/23 09:53 DL 09/19/23 09/26/23 10/03/23 09:30 10:12 09:41 WC - Today's Visit Information Type of service Follow-up Visit Follow-up Visit 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 (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 (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 ) ) ) Arrival Mode Wheelchair Wheelchair Ambulatory Transfer Assistance None None None Patient Identification Verified (Name & Yes Yes Yes ) Patient Requires Transmission-Based No No Precautions Finger Stick Blood Sugar(mg/dl) (if 115 indicated): Blood Sugar Stated by Patient Vital Signs Temperature (97.8 F-99.1 F) 96.3 F L 96.4 F L 96.3 F L Temperature Source Temporal Temporal Temporal Pulse Rate (60-100) 71 63 72 Pulse Location Monitor Monitor Monitor Respiratory Rate (12-18) 18 18 18 Respiratory rate source Observation Observation Observation Oxygen Delivery Method Room Air Blood Pressure (90/60-120/80) 138/66 H 122/56 H 122/58 H Blood Pressure Mean (mm Hg) 90 78 79 Source Monitor Monitor Monitor Position Sitting Sitting Sitting Blood Pressure Location Right Arm Left Arm Left Arm History Since Last Visit- (Skip if this is Patient's initial visit) Have you changed medications since your No No No last visit? Any new allergies or adverse reactions No No No Had a fall/change in ADL's that may No No No increase risk of falls Signs or symptoms of abuse and/or No No No neglect since last visit Have you been in the hospital since your No No No last visit? Has dressing in place as prescribed Yes Yes Yes Has compression in place as prescribed Yes Yes N/A Has offloadiing in place as prescribed No No Yes Experienced any changes in pain level or No No No management Pain Scale: 0-10 Numeric Is Patient Pain Free? Yes No No R LE -Description Aching -Intensity 8 8 -Duration (hours) Chronic Chronic -Pain Behavior Withdrawal from No Change in Touch Behavior -Pain Aggravating Factors Exercise/ Activity, Debridement -Alleviating Factors/Interventions Medication Medication, Inactivity/ Resting,Will continue to monitor, Emotional Support -Effectiveness of Alleviating Factor/ Minimally Intervention effective 10/10/23 09:50 WC - Today's Visit Information Type of service 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 ) Arrival Mode Wheelchair Transfer Assistance None Patient Identification Verified (Name & Yes ) Patient Requires Transmission-Based No Precautions Finger Stick Blood Sugar(mg/dl) (if indicated): Blood Sugar Vital Signs Temperature (97.8 F-99.1 F) 97.4 F L Temperature Source Temporal Pulse Rate (60-100) 80 Pulse Location Monitor Respiratory Rate (12-18) 18 Respiratory rate source Observation Oxygen Delivery Method Blood Pressure (90/60-120/80) 113/52 L Blood Pressure Mean (mm Hg) 72 Source Monitor Position Blood Pressure Location History Since Last Visit- (Skip if this is Patient's initial visit) Have you changed medications since your No last visit? Any new allergies or adverse reactions No Had a fall/change in ADL's that may No increase risk of falls Signs or symptoms of abuse and/or No neglect since last visit Have you been in the hospital since your No last visit? Has dressing in place as prescribed Yes Has compression in place as prescribed Yes Has offloadiing in place as prescribed N/A Experienced any changes in pain level or No management Pain Scale: 0-10 Numeric Is Patient Pain Free? Yes R LE -Description -Intensity -Duration (hours) -Pain Behavior -Pain Aggravating Factors -Alleviating Factors/Interventions -Effectiveness of Alleviating Factor/ Intervention WC - Nurse 1 - General Ulcer Measurement Start: 09/19/23 09:30 Freq: Status: Active Protocol: Activity Type Activity Date Activity User E-sign Co-sign Detail Recorded Client Recorded Date Recorded By Document 09/19/23 09:30 RB Desktop 09/19/23 09:32 RB Document 09/26/23 10:12 RB Desktop 09/26/23 10:15 RB Document 10/03/23 09:41 GM Desktop 10/03/23 09:51 GM Document 10/10/23 09:50 DL Desktop 10/10/23 09:53 DL 09/19/23 09/26/23 10/03/23 09:30 10:12 09:41 Wound Center Nurse 1 #1 R Lat Ankle -Combined with other wound No No -Current Size (cm) - Length 0.1 1.8 -Current Size (cm) - Width 0.1 1 -Current Size (cm) - Depth 0.1 0.3 -Total Square Cm 0.01 1.8 -Photo Taken No -Epithelialization None Present -Tunneling No No -Undermining/Tunneling No No -Circular Undermining No No -Exudate Amt Medium Medium Medium -Exudate Type Serosanguineous Serosanguineous Yellow/Green -Wound Margin Thickened & Thickened & Distinct, Rolled Under Rolled Under Outline Attached -Granulation Amt Medium (34-66%) Medium (34-66%) Small (1-33%) -Granulation Quality [place] -Slough/Fibrin Yes Yes -Necrosis Amt Medium (34-66%) Medium (34-66%) Medium (34-66%) -Necrotic Tissue Type Adherent Slough Adherent Slough Adherent Slough -Structure Exposed N/A N/A N/A -Texture (Lori-wound Skin Appearance) Assessed Scarring Assessed -Moisture (Lori-wound Skin Appearance) Assessed Maceration Assessed, Maceration -Color (Lori-wound Skin Appearance) Assessed, Assessed, Assessed Hemosiderin Hemosiderin Staining Staining -Temperature (Lori-wound Skin No Abnormality No Abnormality Appearance) (Pt Warm) (Pt Warm) -Tenderness on Palpation (Lori-wound No No Skin Appearance) -Ulcer Cleansing Wound Cleanser Wound Cleanser Soap and Water -Foul Odor after Cleansing No No No -Anesthetic Used 5% Lidocaine 5% Lidocaine 5% Lidocaine Gel Gel Gel Lower Limb Edema Present Yes Yes Right Calf (cm) 34.5 34.5 Right Ankle (cm) 21.5 21.5 10/10/23 09:50 Wound Center Nurse 1 #1 R Lat Ankle -Combined with other wound -Current Size (cm) - Length 1.7 -Current Size (cm) - Width 1 -Current Size (cm) - Depth 0.7 -Total Square Cm 1.7 -Photo Taken Yes -Epithelialization -Tunneling -Undermining/Tunneling -Circular Undermining -Exudate Amt Medium -Exudate Type Serosanguineous -Wound Margin Distinct, Outline Attached -Granulation Amt Large (67-100%) -Granulation Quality Red -Slough/Fibrin -Necrosis Amt Small (1-33%) -Necrotic Tissue Type Adherent Slough -Structure Exposed N/A -Texture (Lori-wound Skin Appearance) Scarring -Moisture (Lori-wound Skin Appearance) Maceration -Color (Lori-wound Skin Appearance) Hemosiderin Staining -Temperature (Lori-wound Skin No Abnormality Appearance) (Pt Warm) -Tenderness on Palpation (Lori-wound No Skin Appearance) -Ulcer Cleansing Soap and Water -Foul Odor after Cleansing No -Anesthetic Used 5% Lidocaine Gel Lower Limb Edema Present Right Calf (cm) Right Ankle (cm) WC - Nurse 2 - General Ulcer CM Notes Start: 09/19/23 09:30 Freq: Status: Active Protocol: Activity Type Activity Date Activity User E-sign Co-sign Detail Recorded Client Recorded Date Recorded By Document 09/19/23 09:53 Desktop 09/19/23 09:59 Document 09/26/23 10:37 Desktop 09/26/23 10:39 Document 10/03/23 10:18 [facility] Desktop 10/03/23 10:30 [facility] 09/19/23 09/26/23 10/03/23 09:53 10:37 10:18 Wound Center Nurse 2 #1 R Lat Ankle -Time 09:53 10:37 10:18 -Correct Patient Yes Yes Yes -Correct Side, Site, Position Yes Yes Yes -Correct Procedure Yes Yes Yes -Procedure Performed Yes Yes Yes -Type of Procedure Debridement Debridement Debridement -Clinical Debridement Subcutaneous Subcutaneous Subcutaneous -Tissue Removed Subcutaneous Subcutaneous Subcutaneous -Post Debridement (cm) - Length 0.7 2 1.7 -Post Debridement (cm) - Width 0.5 2 1.8 -Post Debridement (cm) - Depth 0.2 0.1 0.3 -Total Square (Post) (cm) 0.35 4 3.06 -Area of Debridement (cm) - Length 0.7 2 1.7 -Area of Debridement (cm) - Width 0.5 2 1.8 -Total Square (Area) (cm) 0.35 4 3.06 -Tunneling No No No -Undermining/Tunneling No No No -Circular Undermining No No No -Wound/Ulcer Outcome Not Healed Not Healed Not Healed -Ulcer Cleansing Rinsed/ Rinsed/ Rinsed/ Irrigated with Irrigated with Irrigated with Saline Saline Saline -Foul Odor after Cleansing No No No -Bioengineered Tissue No -Injectable Lidocaine w/ Epi (%) 1 -Injectable Lidocaine w/ Epi (mls) 10 -Bleeding Controlled with Pressure Pressure Pressure -Treatment Response Procedure Procedure Tolerated Well Tolerated Well -Offloading No -Assistive Device(s) Wheelchair -Debridement - Subq, 1st 20sq cm Yes Yes Yes Pain Scale: 0-10 Numeric Is Patient Pain Free? Yes No Yes R LE -Intensity 8 -Duration (hours) Acute -Pain Behavior No Change in Behavior -Alleviating Factors/Interventions Inactivity/ Resting WC - Nurse 3 - General Ulcer D/C NN Start: 09/19/23 09:30 Freq: Status: Active Protocol: Activity Type Activity Date Activity User E-sign Co-sign Detail Recorded Client Recorded Date Recorded By Document 09/19/23 10:17 GM Desktop 09/19/23 10:18 GM Document 09/26/23 11:13 RB Desktop 09/26/23 11:14 RB Document 10/03/23 11:49 DL [id number] 10/03/23 11:50 DL 09/19/23 09/26/23 10/03/23 10:17 11:13 11:49 Wound Care Center Nurse 3 #1 R Lat Ankle -Ulcer Cleansing Not Cleansed Rinsed/ Irrigated with Saline -Foul Odor after Cleansing No No -Primary Dressing Applied Aquacel Extra, Aquacel Extra, Mepilex Border, Mepilex Border, Promogran Promogran -Other Dressing dakins -Primary Dressing Covered/Secured with Secured with Dry Gauze & Tape Roll Gauze, Secured with Tape -Other Covering ABD -Aquacel Extra 1 1 -Mepilex Border 1 1 -Promogran 1 1 Right -Lotion applied to leg before No compression wrap -Multi-Layered Wrap Application Multi-Layer Comp - Right ($ ) -Compression Wrap Daljit Wrap Treatment Response Procedure Procedure Tolerated Well Tolerated Well Pain Scale: 0-10 Numeric Is Patient Pain Free? Yes No Yes Teaching: Wound Center Compression Wraps & Stockings -Person Taught Patient -Teaching Method Discussion -Response to teaching Verbalize understanding WC - Visit Discharge Discharge Condition Stable Stable Stable Ambulatory Status Wheelchair Wheelchair Wheelchair Transportation Private Auto Medication Reconcilliation completed & Yes No provided to patient/care provider Clinical Summary of Care Provided Yes Yes Notes: pt went to hospital for xray as ordered Facility Type [facility] Facility Orders Sent Yes Assessment/Plan Assessment/Plan (1) 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: CODE(S): L97.312 - Non-pressure chronic ulcer of right ankle with fat layer exposed (2) Diabetes mellitus with diabetic polyneuropathy: CODE(S): E11.42 - Type 2 diabetes mellitus with diabetic polyneuropathy (3) Tobacco abuse: CODE(S): Z72.0 - Tobacco use (4) Hyperlipidemia: CODE(S): E78.5 - Hyperlipidemia, unspecified PLAN: Plan Patient seen and evaluated Patient seen on behalf of Dr. Laughlin who is out of office today. I have reviewed previous records and diagnostic data. Patient did have radiographs performed 09/26/2023 of the right ankle and foot demonstrating generalized osteopenia, soft tissue swelling, and mild arthritis of the first MTPJ and TNJ. Recent laboratory data demonstrates WBC 9.8, ESR 15, glucose 210. No recent A1cwas performed with last A1c of record 03/09/2019 which was 8% at this time. Recommended updating A1c today. Wound cultures were obtained 09/26/2023 demonstrating MRSA positive. These cultures do reflect previous past cultures of MRSA positive from August and July 2023. Recommended referral to Dr. Robbins. Patient currently on doxycycline 100 mg twice daily for 7 days. I do feel antibiotic should be extended versus possibly switching to Zyvox. Ulceration was debrided as noted in the clinical panel above. Prior to debridement she was locally anesthetized proximal to the ulcerative site consisting of 10 cc 1% lidocaine with epinephrine with block to the sural nerve and superficial peroneal nerve. This is noted to improve patient's tolerance ofdebridement today. Ulceration to the right lateral ankle measures 1.4 cm x 1.3 cm x 0.5 cm. No localized signs of infection. Change was made in dressings last week for improvement of source control. Dakin's wet-to-dry dressing was applied to the lateral ankle. She is instructed to change dressing daily. Recommended finishing oral antibiotic as instructed with follow-up with infectious disease. There is noted visual improvement of the wound bed with more healthy granular tissue noted following application of the Dakin's. There is still significant amount of pain to palpation about the right lateral ankle and patient will undergo MRI which has been scheduled for 10/11/[address] Laughlin. Recommended adequate protein intake to aid in wound healing. Solomon supplementation is also recommended. Discussed with patient continue proper diabetic diet to aid in wound healing andprovide good glycemic control. Discussed glycemic control and lowering of her blood sugar/A1c is important to aid in wound healing. She was again reminded to continue to wear proper fitting shoe gear and to ensure shoe gear is worn at all times for protection of the foot as she is diabetic with significant diminished sensation secondary to peripheral polyneuropathy. Discussed with patient the need for smoking cessation. Discussed impacts of wound healing from her smoking. Discussed with smoking blood flow is diminishedto vital organs and extremities which is essential for her wound healing, in addition to affecting oxygen content/saturation of the bloodstream which is alsoessential for wound healing. Discussed smoking cessation aids today and these were offered. Recommended continued discussion with her primary care physician to aid her in smoking cessation. 5 minutes total was spent on discussion 10/03/23. I discussed signs and symptoms of infection today. Discussed if she notices increasing redness of the skin about the ulcerative site moving up the leg, purulent drainage from the wound site, increasing foul odor from the wound, or if she develops fever greater than 101 degree accompanied by nausea, vomiting, chills that these are signs of a progressing infection and she should report to the ED for IV antibiotics and further evaluation. Patient voices understanding of this. The following work up and care recommendations were made: Dressing: Dakin's wet-to-dry dressing. Change daily Wash: Soap and water Tissue growth optimization: Dakin's Offload: Padded protective dressing of the lateral ankle. Recommended waffle offloading boot while in bed. Vascular: DP and PT pulses weakly palpable bilateral. Monophasic Doppler to left pedal pulses. Edema: Mild edema noted to the lower extremities. Recommended continued Tubigrip compression with elevation of lower extremities. Infection: Currently no local signs of infection. She does demonstrate positiveMRSA cultures and is currently on doxycycline for 7 days. Would recommend extending antibiotic versus switch to Zyvox. Recommended referral to infectiousdisease. Pain: May take [id number] Tylenol for discomfort Host factors: DM type II with peripheral polyneuropathy, MRSA positive cultures,edema, chronic tobacco abuse. I answered all the patient's questions. To return to the wound healing center in 1 week or call sooner if the patient has any questions or concerns. 10/10/231858 <Electronically signed by Karthikeyan Grove DPM> Cosigner Signature (if applicable): CC: ~ Signed [facility] Work Phone: 1(646) 390-626603-21-2024 History and physical note Author Karthikeyan Grove [facility] October 03, 2023 1:23pm Note Date/Time October 03, 2023 10: 09am [facility] [address] [place] [address] H&P Exam - Wound Care 10/03/23 1008 MR#: [id number] Acct: [id number] Name: JULIANA MERIDA Rep #:[id number] : 1960 62 From: Karthikeyan tavares DPM PCP: Bianca Palomares MD Status:REG RCR Location: History of Present Illness Date of Service: 10/03/23 Chief Complaint: Non healing right ankle ulcer History of Wound: Ms. Merida is a 62-year-old who was referred to this facility due to nonhealing right lateral ankle ulcer. Noted a year ago, started out as abullae and subsequently opened up. She states that over the years, she has had alginate and collagen dressings done at her facility without any significant improvement. History of diabetes mellitus, she is not sure of her most recent A1c but states that it has ranged from 8-13. Also history of tobacco use, smokes daily. There is significant pain around the ulcer but she denies otherwise significant leg pain. Does not wear compression. Mostly sedentary but sleeps in the bed. She feels well otherwise, no chills, fever, nausea, vomiting or change in bowel habit reported. Progress of Wound: Lori ulcer maceration and break down. Patient states that she had increased drainage and pain all week. No chills, fever or otherwise feeling of unwell reported. FOR[facility]LY [facility] Medical History Anxiety Cerebral vascular disease 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 Diabetes GERD (gastroesophageal reflux disease) Hyperlipidemia Hypertension Insomnia Insulin dependent diabetes mellitus Mild asthma Neuralgia and neuritis Schizoaffective disorder Schizophrenia Spondylosis Tobacco abuse Home Medications amlodipine 5 mg tablet 5 mg PO DAILY blood pressure 03/08/19 [History Last Taken 03/08/19] ondansetron HCl 4 mg tablet 4 mg PO Q6H PRN PRN Nausea 03/08/19 [History Last Taken Unknown] prazosin 1 mg capsule 1 mg PO QHS nightmares 03/08/19 [History Last Taken 03/07/19 20:00] albuterol sulfate 2.5 mg/3 mL (0.083 %) solution for nebulization 2.5 mg inhalation Q4H PRN SOB 07/29/21 [History Last Taken Unknown] apixaban 5 mg tablet (Eliquis) 5 mg PO BID 07/29/21 [History Last Taken Unknown] cyclosporine 0.05 % eye drops in a dropperette (Restasis) 1 drp EACH EYE Q12H 07/29/21 [History Last Taken Unknown] insulin aspart U-100 100 unit/mL (3 mL) subcutaneous pen unit subcut LUNCH 07/29/21 [History Last Taken Unknown] lurasidone 80 mg tablet (Latuda) 80 mg PO DAILY 07/29/21 [History Last Taken Unknown] naloxegol 25 mg tablet (Movantik) 25 mg PO DAILY 07/29/21 [History Last Taken Unknown] pantoprazole 40 mg tablet,delayed release 40 mg PO DAILY 07/29/21 [History Last Taken Unknown] acetaminophen 325 mg tablet 325 mg PO ONCE PRN 12/18/22 [History Last Taken Unknown] aluminum-mag hydroxide-simethicone 400 mg-400 mg-40 mg/5 mL oral susp (Maalox Maximum Strength) 5 ml PO Q3H 12/18/22 [History Last Taken Unknown] atenolol 25 mg tablet 25 mg PO DAILY 12/18/22 [History Last Taken Unknown] atorvastatin 80 mg tablet 40 mg PO QHS cholesterol 12/18/22 [History Last Taken Unknown] baclofen 5 mg tablet 5 mg PO DAILY 12/18/22 [History Last Taken Unknown] benzonatate 100 mg capsule 100 mg PO Q8H PRN 12/18/22 [History Last Taken Unknown] bisacodyl 10 mg rectal suppository (Dulcolax (bisacodyl)) 10 mg GA Q8H PRN 12/18/22 [History Last Taken Unknown] bisacodyl 5 mg tablet,delayed release (Dulcolax (bisacodyl)) 5 mg PO Q8H 12/18/22 [History Last Taken Unknown] carboxymethylcellulose sodium 0.5 % eye drops (Refresh Tears) 1 drp ophthalmic (eye) QHS 12/18/22 [History Last Taken Unknown] cholecalciferol (vitamin D3) 125 mcg (5,000 unit) capsule 125 mcg PO DAILY 12/18/22 [History Last Taken Unknown] cholecalciferol (vitamin D3) 50 mcg (2,000 unit) capsule 50 mcg PO DAILY 12/18/22 [History Last Taken Unknown] diclofenac sodium 1 % topical gel 2 g topical ONCE 12/18/22 [History Last Taken Unknown] dulaglutide 3 mg/0.5 mL subcutaneous pen injector (Trulicity) 3 mg subcut QWEEK 12/18/22 [History Last Taken Unknown] dyclonine 2 mg lozenges (Sucrets Sore Throat) 2 mg mucous membrane Q3H PRN 12/18/22 [History Last Taken Unknown] epinephrine 0.3 mg/0.3 mL injection, auto-injector (EpiPen) 0.3 mg IM Q5-15M PRN12/18/22 [History Last Taken Unknown] flash glucose sensor (FreeStyle Elisa 2 Sensor kit) 12/18/22 [History Last Taken Unknown] fluticasone fur. 200 mcg-umeclid 62.5 mcg-vilant 25 mcg inhalat.powder (Trelegy Ellipta) 1 inh inhalation DAILY 12/18/22 [History Last Taken Unknown] fluticasone propionate 50 mcg/actuation nasal spray,suspension (Flonase Allergy Relief) 2 spray intranasal DAILY 12/18/22 [History Last Taken Unknown] guaifenesin 100 mg/5 mL oral liquid 200 mg PO Q4H PRN 12/18/22 [History Last Taken Unknown] hydroxyzine pamoate 25 mg capsule (Vistaril) 25 mg PO QHS 12/18/22 [History Last Taken Unknown] insulin glargine U-300 conc 300 unit/mL (1.5 mL) subcutaneous pen (Toujeo SoloStar U-300 Insulin) 30 unit subcut DAILY 12/18/22 [History Last Taken Unknown] ipratropium 0.5 mg-albuterol 3 mg (2.5 mg base)/3 mL nebulization soln 3 ml inhalation 6XD 12/18/22 [History Last Taken Unknown] ipratropium 20 mcg-albuterol 100 mcg/actuation mist for inhalation (Combivent Respimat) 1 puff inhalation Q6H 12/18/22 [History Last Taken Unknown] ipratropium bromide 21 mcg (0.03 %) nasal spray 2 spray intranasal BID 12/18/22 [History Last Taken Unknown] lisinopril 2.5 mg tablet 2.5 mg PO DAILY 12/18/22 [History Last Taken Unknown] loratadine 10 mg tablet (Claritin) 10 mg PO DAILY 12/18/22 [History Last Taken Unknown] melatonin 3 mg capsule 3 mg PO HS PRN 12/18/22 [History Last Taken Unknown] metformin 500 mg tablet 500 mg PO QHS 12/18/22 [History Last Taken Unknown] montelukast 10 mg tablet 10 mg PO DAILY 12/18/22 [History Last Taken Unknown] naloxone 0.4 mg/mL injection solution 0.2 mg subcut ONCE 12/18/22 [History Last Taken Unknown] olanzapine 10 mg tablet (Zyprexa) 10 mg PO QPM 12/18/22 [History Last Taken Unknown] polyethylene glycol 3350 17 gram/dose oral powder (Miralax) 4 g PO DAILY 12/18/22 [History Last Taken Unknown] tizanidine 2 mg tablet 2 mg PO Q12H 12/18/22 [History Last Taken Unknown] duloxetine 60 mg capsule,delayed release (Cymbalta) 60 mg PO BID 01/16/23 [History Last Taken Unknown] furosemide 20 mg tablet 40 mg PO QAM 01/16/23 [History Last Taken Unknown] potassium chloride 20 mEq tablet,extended release 20 meq PO DAILY 01/16/23 [History Last Taken Unknown] pregabalin 100 mg capsule 100 mg PO DAILY 01/16/23 [History Last Taken Unknown] doxycycline monohydrate 100 mg capsule 100 mg PO BID 2 weeks #28 caps 10/01/23 [Rx Last Taken Unknown] Allergy/AdvReac Type Severity Reaction Status Date / Time Iodinated Contrast Media Allergy Hives Verified 04/05/23 11:17 [Iodinated Contrast Media - IV Dye] amoxicillin trihydrate AdvReac Itching Verified 04/05/23 11:17 [From Augmentin] hydrocodone [From Vicodin] AdvReac Unknown Verified 04/05/23 11:17 potassium clavulanate AdvReac Itching Verified 04/05/23 11:17 [From Augmentin] prednisone AdvReac Unknown Verified 04/05/23 11:17 shellfish derived AdvReac Itching Verified 04/05/23 11:17 Surgical History S/P right rotator cuff repair Social History Smoking Status: Current every day smoker tobacco type: cigarettes ROS Constitutional Constitutional: Denies anorexia, change in weight, chills, fatigue or fever(s) Eyes Eyes: Denies blurry vision, change in vision or double vision ENT HEENT: Denies dysphagia, nasal congestion, nasal discharge or sore throat Cardiovascular Cardiovascular: Denies chest pain, claudication, dyspnea or palpitations Respiratory/Chest Respiratory/Chest: Denies cough, shortness of breath at rest or wheezing Gastrointestinal Gastrointestinal: Denies abdominal pain, constipation, diarrhea, nausea or vomiting Genitourinary Genitourinary: Denies dysuria, hematuria or urinary frequency Musculoskeletal Musculoskeletal: Denies joint pain, joint stiffness or joint swelling Integumentary Integumentary: Denies lesions, pruritus or rash Neurologic Neurologic: Denies dizziness, numbness or seizures Psychiatric Psychiatric: Denies anxiety Endocrine Endocrinology: Denies cold intolerance or heat intolerance Hematologic/Lymphatic Hematologic/Lymphatic: Denies easy bleeding or easy bruising Vital Signs Vital Signs Vital Signs: 10/03/23 09:41 Temperature 96.3 F L Temperature Source Temporal Pulse Rate 72 Respiratory Rate 18 Blood Pressure 122/58 H Blood Pressure Mean 79 Blood Pressure Source Monitor Blood Pressure Position Sitting Blood Pressure Location Left Arm Oxygen Delivery Method Room Air Physical Exam Const alert, oriented x3 and no apparent distress General Appearance: cooperative HEENT normocephalic Eyes General Eye: normal appearance of both eyes Neck General: normal visual inspection Lymph Lymphatic: no lymphadenopathy noted and no lymphedema noted Resp normal respiratory effort Cardio regular rate and regular rhythm Extremity normal capillary refill, no joint enlargement, no calf tenderness and no pedal edema Extremity Narrative: Right lower extremity: Vascular: DP and PT pulses palpable. Capillary fill time less than 5 seconds todigits. Normal temperature gradient. Hair growth is absent to digits/foot. Neurologic: Light touch sensation diminished. Gross sensation intact. Protective sensation is significantly diminished secondary to diabetic peripheral polyneuropathy. Dermatologic: Skin does appear well-hydrated. Skin is soft, supple, normal turgor. Right lateral ankle demonstrates ulceration distal to the lateral malleolus to the level of the subcutaneous tissue with mixed fibrogranular layerand serosanguineous drainage. Ulceration demonstrates no malodor, no purulent drainage, no localized erythema, no increased temperature, no palpable fluctuance/bogginess, no visible abscess formation. Musculoskeletal: Patient is in wheelchair and does have decreased muscle strength of the lower extremities bilateral. Debridement Note Debridement Note Wound debrided: Right lateral ankle Laterality: Right Wound Grade/Stage: Esqueda stage I Type of Debridement: Excisional debridement Anesthesia Used: 5% Lidocaine Gel and - (10 cc 1% lidocaine with epinephrine) Depth: Down to and including healthy tissue and in the subcutaneous layer Percentage of wound debrided: 100 Instrument Used: 5mm curette Tissue Removed: Fibrous, devitalized subcutaneous, biofilm, slough Severity: Fat Layer Exposed Amount of bleeding with debridement: Mild Bleeding Controlled with: Compression and gauze Patient tolerated procedure: Patient tolerated procedure well Post-Debridement Measurements and Additional Note: Post-Debridement Measurements/Treatment - Nurse 1 - General Ulcer Assessment Start: 09/19/23 09:30 Freq: Status: Active Protocol: CLOVIS Activity Type Activity Date Activity User E-sign Co-sign Detail Recorded Client Recorded Date Recorded By Document 09/19/23 09:30 [employer], [place] 09/19/23 09:32 RB Document 09/26/23 10:12 RB Desktop 09/26/23 10:15 RB Document 10/03/23 09:41 Desktop 10/03/23 09:51 09/19/23 09/26/23 10/03/23 09:30 10:12 09:41 - Today's Visit Information Type of service Follow-up Visit Follow-up Visit 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 (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 (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 ) ) ) Arrival Mode Wheelchair Wheelchair Ambulatory Transfer Assistance None None None Patient Identification Verified (Name & Yes Yes Yes ) Patient Requires Transmission-Based No No Precautions Finger Stick Blood Sugar(mg/dl) (if 115 indicated): Blood Sugar Stated by Patient Vital Signs Temperature (97.8 F-99.1 F) 96.3 F L 96.4 F L 96.3 F L Temperature Source Temporal Temporal Temporal Pulse Rate (60-100) 71 63 72 Pulse Location Monitor Monitor Monitor Respiratory Rate (12-18) 18 18 18 Respiratory rate source Observation Observation Observation Oxygen Delivery Method Room Air Blood Pressure (90/60-120/80) 138/66 H 122/56 H 122/58 H Blood Pressure Mean 90 78 79 Source Monitor Monitor Monitor Position Sitting Sitting Sitting Blood Pressure Location Right Arm Left Arm Left Arm History Since Last Visit- (Skip if this is Patient's initial visit) Have you changed medications since your No No No last visit? Any new allergies or adverse reactions No No No Had a fall/change in ADL's that may No No No increase risk of falls Signs or symptoms of abuse and/or No No No neglect since last visit Have you been in the hospital since your No No No last visit? Has dressing in place as prescribed Yes Yes Yes Has compression in place as prescribed Yes Yes N/A Has offloadiing in place as prescribed No No Yes Experienced any changes in pain level or No No No management Pain Scale: 0-10 Numeric Is Patient Pain Free? Yes No No R LE -Description Aching -Intensity 8 8 -Duration (hours) Chronic Chronic -Pain Behavior Withdrawal from No Change in Touch Behavior -Pain Aggravating Factors Exercise/ Activity, Debridement -Alleviating Factors/Interventions Medication Medication, Inactivity/ Resting,Will continue to monitor, Emotional Support -Effectiveness of Alleviating Factor/ Minimally Intervention effective WC - Nurse 1 - General Ulcer Measurement Start: 09/19/23 09:30 Freq: Status: Active Protocol: Activity Type Activity Date Activity User E-sign Co-sign Detail Recorded Client Recorded Date Recorded By Document 09/19/23 09:30 RB [employer] 09/19/23 09:32 RB Document 09/26/23 10:12 RB Desktop 09/26/23 10:15 RB Document 10/03/23 09:41 Desktop 10/03/23 09:51 09/19/23 09/26/23 10/03/23 09:30 10:12 09:41 Wound Center Nurse 1 #1 R Lat Ankle -Combined with other wound No No -Current Size (cm) - Length 0.1 1.8 -Current Size (cm) - Width 0.1 1 -Current Size (cm) - Depth 0.1 0.3 -Total Square Cm 0.01 1.8 -Photo Taken No -Epithelialization None Present -Tunneling No No -Undermining/Tunneling No No -Circular Undermining No No -Exudate Amt Medium Medium Medium -Exudate Type Serosanguineous Serosanguineous Yellow/Green -Wound Margin Thickened & Thickened & Distinct, Rolled Under Rolled Under Outline Attached -Granulation Amt Medium (34-66%) Medium (34-66%) Small (1-33%) -Granulation Quality [place] -Slough/Fibrin Yes Yes -Necrosis Amt Medium (34-66%) Medium (34-66%) Medium (34-66%) -Necrotic Tissue Type Adherent Slough Adherent Slough Adherent Slough -Structure Exposed N/A N/A N/A -Texture (Lori-wound Skin Appearance) Assessed Scarring Assessed -Moisture (Lori-wound Skin Appearance) Assessed Maceration Assessed, Maceration -Color (Lori-wound Skin Appearance) Assessed, Assessed, Assessed Hemosiderin Hemosiderin Staining Staining -Temperature (Lori-wound Skin No Abnormality No Abnormality Appearance) (Pt Warm) (Pt Warm) -Tenderness on Palpation (Lori-wound No No Skin Appearance) -Ulcer Cleansing Wound Cleanser Wound Cleanser Soap and Water -Foul Odor after Cleansing No No No -Anesthetic Used 5% Lidocaine 5% Lidocaine 5% Lidocaine Gel Gel Gel Lower Limb Edema Present Yes Yes Right Calf (cm) 34.5 34.5 Right Ankle (cm) 21.5 21.5 WC - Nurse 2 - General Ulcer CM Notes Start: 09/19/23 09:30 Freq: Status: Active Protocol: Activity Type Activity Date Activity User E-sign Co-sign Detail Recorded Client Recorded Date Recorded By Document 09/19/23 09:53 GM Desktop 09/19/23 09:59 GM Document 09/26/23 10:37 GM Desktop 09/26/23 10:39 GM 09/19/23 09/26/23 09:53 10:37 Wound Center Nurse 2 #1 R Lat Ankle -Time 09:53 10:37 -Correct Patient Yes Yes -Correct Side, Site, Position Yes Yes -Correct Procedure Yes Yes -Procedure Performed Yes Yes -Type of Procedure Debridement Debridement -Clinical Debridement Subcutaneous Subcutaneous -Tissue Removed Subcutaneous Subcutaneous -Post Debridement (cm) - Length 0.7 2 -Post Debridement (cm) - Width 0.5 2 -Post Debridement (cm) - Depth 0.2 0.1 -Total Square (Post) (cm) 0.35 4 -Area of Debridement (cm) - Length 0.7 2 -Area of Debridement (cm) - Width 0.5 2 -Total Square (Area) (cm) 0.35 4 -Tunneling No No -Undermining/Tunneling No No -Circular Undermining No No -Wound/Ulcer Outcome Not Healed Not Healed -Ulcer Cleansing Rinsed/ Rinsed/ Irrigated with Irrigated with Saline Saline -Foul Odor after Cleansing No No -Bleeding Controlled with Pressure Pressure -Treatment Response Procedure Tolerated Well -Assistive Device(s) Wheelchair -Debridement - Subq, 1st 20sq cm Yes Yes Pain Scale: 0-10 Numeric Is Patient Pain Free? Yes No R LE -Intensity 8 -Duration (hours) Acute -Pain Behavior No Change in Behavior -Alleviating Factors/Interventions Inactivity/ Resting WC - Nurse 3 - General Ulcer D/C NN Start: 09/19/23 09:30 Freq: Status: Active Protocol: Activity Type Activity Date Activity User E-sign Co-sign Detail Recorded Client Recorded Date Recorded By Document 09/19/23 10:17 Desktop 09/19/23 10:18 Document 09/26/23 11:13 RB Desktop 09/26/23 11:14 RB 09/19/23 09/26/23 10:17 11:13 Wound Care Center Nurse 3 #1 R Lat Ankle -Ulcer Cleansing Not Cleansed -Foul Odor after Cleansing No -Primary Dressing Applied Aquacel Extra, Aquacel Extra, Mepilex Border, Mepilex Border, Promogran Promogran -Primary Dressing Covered/Secured with Secured with Tape -Aquacel Extra 1 1 -Mepilex Border 1 1 -Promogran 1 1 Right -Lotion applied to leg before No compression wrap -Multi-Layered Wrap Application Multi-Layer Comp - Right ($ ) Treatment Response Procedure Tolerated Well Pain Scale: 0-10 Numeric Is Patient Pain Free? 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 Laughlin who is out of office today. I have reviewed previous records and diagnostic data. Patient did have radiographs performed 09/26/2023 of the right ankle and foot demonstrating generalized osteopenia, soft tissue swelling, and mild arthritis of the first MTPJ and TNJ. Recent laboratory data demonstrates WBC 9.8, ESR 15, glucose 210. No recent A1cwas performed with last A1c of record 03/09/2019 which was 8% at this time. Recommended updating A1c today. Wound cultures were obtained 09/26/2023 demonstrating MRSA positive. These cultures do reflect previous past cultures of MRSA positive from August and July 2023. Recommended referral to Dr. Robbins. Patient currently on doxycycline 100 mg twice daily for 7 days. I do feel antibiotic should be extended versus possibly switching to Zyvox. Ulceration was debrided as noted in the clinical panel above. Prior to debridement she was locally anesthetized proximal to the ulcerative site consisting of 10 cc 1% lidocaine with epinephrine with block to the sural nerve and superficial peroneal nerve. This is noted to improve patient's tolerance ofdebridement today. Ulceration to the right lateral ankle measures 1.7 cm x 1.8 cm x 0.3 cm. No localized signs of infection. Change was made in dressings today for improvement of source control. Dakin's wet-to-dry dressing was applied to the lateral ankle. She is instructed to change dressing daily. Recommended finishing oral antibiotic as instructed with follow-up with infectious disease. Recommended adequate protein intake to aid in wound healing. Solomon supplementation is also recommended. Discussed with patient continue proper diabetic diet to aid in wound healing andprovide good glycemic control. Discussed glycemic control and lowering of her blood sugar/A1c is important to aid in wound healing. She was again reminded to continue to wear proper fitting shoe gear and to ensure shoe gear is worn at all times for protection of the foot as she is diabetic with significant diminished sensation secondary to peripheral polyneuropathy. Discussed with patient the need for smoking cessation. Discussed impacts of wound healing from her smoking. Discussed with smoking blood flow is diminishedto vital organs and extremities which is essential for her wound healing, in addition to affecting oxygen content/saturation of the bloodstream which is alsoessential for wound healing. Discussed smoking cessation aids today and these were offered. Recommended continued discussion with her primary care physician to aid her in smoking cessation. 5 minutes total was spent on discussion today. I discussed signs and symptoms of infection today. Discussed if she notices increasing redness of the skin about the ulcerative site moving up the leg, purulent drainage from the wound site, increasing foul odor from the wound, or if she develops fever greater than 101 degree accompanied by nausea, vomiting, chills that these are signs of a progressing infection and she should report to the ED for IV antibiotics and further evaluation. Patient voices understanding of this. The following work up and care recommendations were made: Dressing: Dakin's wet-to-dry dressing. Change daily Wash: Soap and water Tissue growth optimization: Dakin's Offload: Padded protective dressing of the lateral ankle. Recommended waffle offloading boot while in bed. Vascular: DP and PT pulses weakly palpable bilateral. Monophasic Doppler to left pedal pulses. Edema: Mild edema noted to the lower extremities. Recommended continued Tubigrip compression with elevation of lower extremities. Infection: Currently no local signs of infection. She does demonstrate positiveMRSA cultures and is currently on doxycycline for 7 days. Would recommend extending antibiotic versus switch to Zyvox. Recommended referral to infectiousdisease. Pain: May take [id number] Tylenol for discomfort Host factors: DM type II with peripheral polyneuropathy, MRSA positive cultures,edema, chronic tobacco abuse. I answered all the patient's questions. To return to the wound healing center in 1 week or call sooner if the patient has any questions or concerns. 10/03/23 1323 <Electronically signed by Karthikeyan Grove DPM> Cosigner Signature (if applicable): CC: ~ Signed [facility] Work Phone: [phone] Progress note Author Chilango Laughlin [facility] September 26, 2023 2:01pm Note Date/Time September 26, 2023 12: 14pm [facility] [address] [place] [address] Progress Note - Wound Care 09/26/23 1209 MR#: [id number] Acct: [id number] Name: JULIANA MERIDA Rep #:[id number] : 1960 62 From: [place]ih[place]o joy MD PCP: Bianca Palomares MD Status:REG RCR Location: History of Present Illness Date of Service: 09/26/23 Chief Complaint: Non healing right ankle ulcer History of Wound: Ms. Merida is a 62-year-old who was referred to this facility due to nonhealing right lateral ankle ulcer. Noted a year ago, started out as abullae and subsequently opened up. She states that over the years, she has had alginate and collagen dressings done at her facility without any significant improvement. History of diabetes mellitus, she is not sure of her most recent A1c but states that it has ranged from 8-13. Also history of tobacco use, smokes daily. There is significant pain around the ulcer but she denies otherwise significant leg pain. Does not wear compression. Mostly sedentary but sleeps in the bed. She feels well otherwise, no chills, fever, nausea, vomiting or change in bowel habit reported. Progress of Wound: Lori ulcer maceration and break down. Patient states that she had increased drainage and pain all week. No chills, fever or otherwise feeling of unwell reported. Objective Data Objective Data Vital Signs: Vital Signs Temp Pulse Resp BP 96.4 F L 63 18 122/56 H 09/26/23 10:12 09/26/23 10:12 09/26/23 10:12 09/26/23 10:12 Lab / Micro Data 09/26/23 11:34 09/26/23 11:34 Charges/Coding Procedures Integumentary [id number]: [id number] Carla subq tissue 20 sq cm/< Physical Exam Const alert, oriented x3 and no apparent distress General Appearance: cooperative, comfortable and well kempt HEENT normocephalic and head/scalp atraumatic Eyes EOMs intact bilaterally General Eye: normal appearance of both eyes Neck full ROM and supple General: normal visual inspection Resp normal respiratory effort Effort and Inspection: able to speak in complete sentences Extremity General Extremity: edema Skin Wounds: wounds noted Neuro oriented x3, CN's II-XII intact bilaterally and moves all extremities Psych mental status grossly normal, thought process normal, cooperative and affect normal Debridement Note Debridement Note Wound debrided: Right lateral foot/ankle Type of Debridement: Excisional debridement Anesthesia Used: 5% Lidocaine Gel Depth: Down to and including healthy tissue and in the subcutaneous layer Percentage of wound debrided: 100 Instrument Used: 3mm curette Tissue Removed: Slough and devitalized tissue Severity: Fat Layer Exposed Amount of bleeding with debridement: Mild Bleeding Controlled with: Pressure Patient tolerated procedure: Patient tolerated procedure well Post-Debridement Measurements and Additional Note: Post-Debridement Measurements/Treatment - Nurse 1 - General Ulcer Assessment Start: 09/19/23 09:30 Freq: Status: Active Protocol: CLOVIS Activity Type Activity Date Activity User E-sign Co-sign Detail Recorded Client Recorded Date Recorded By Document 09/19/23 09:30 RB Desktop 09/19/23 09:32 RB Document 09/26/23 10:12 RB Desktop 09/26/23 10:15 RB 09/19/23 09/26/23 09:30 10:12 - Today's Visit Information Type of service Follow-up Visit 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 (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 ) ) Arrival Mode Wheelchair Wheelchair Transfer Assistance None None Patient Identification Verified (Name & Yes Yes ) Patient Requires Transmission-Based No No Precautions Vital Signs Temperature (97.8 F-99.1 F) 96.3 F L 96.4 F L Temperature Source Temporal Temporal Pulse Rate (60-100) 71 63 Pulse Location Monitor Monitor Respiratory Rate (12-18) 18 18 Respiratory rate source Observation Observation Blood Pressure (90/60-120/80) 138/66 H 122/56 H Blood Pressure Mean (mm Hg) 90 78 Source Monitor Monitor Position Sitting Sitting Blood Pressure Location Right Arm Left Arm History Since Last Visit- (Skip if this is Patient's initial visit) Have you changed medications since your No No last visit? Any new allergies or adverse reactions No No Had a fall/change in ADL's that may No No increase risk of falls Signs or symptoms of abuse and/or No No neglect since last visit Have you been in the hospital since your No No last visit? Has dressing in place as prescribed Yes Yes Has compression in place as prescribed Yes Yes Has offloadiing in place as prescribed No No Experienced any changes in pain level or No No management Pain Scale: 0-10 Numeric Is Patient Pain Free? Yes No R LE -Description Aching -Intensity 8 -Duration (hours) Chronic -Pain Behavior Withdrawal from Touch -Pain Aggravating Factors Exercise/ Activity, Debridement -Alleviating Factors/Interventions Medication -Effectiveness of Alleviating Factor/ Minimally Intervention effective WC - Nurse 1 - General Ulcer Measurement Start: 09/19/23 09:30 Freq: Status: Active Protocol: Activity Type Activity Date Activity User E-sign Co-sign Detail Recorded Client Recorded Date Recorded By Document 09/19/23 09:30 RB Desktop 09/19/23 09:32 RB Document 09/26/23 10:12 RB Desktop 09/26/23 10:15 RB 09/19/23 09/26/23 09:30 10:12 Wound Center Nurse 1 #1 R Lat Ankle -Combined with other wound No No -Current Size (cm) - Length 0.1 1.8 -Current Size (cm) - Width 0.1 1 -Current Size (cm) - Depth 0.1 0.3 -Total Square Cm 0.01 1.8 -Tunneling No No -Undermining/Tunneling No No -Circular Undermining No No -Exudate Amt Medium Medium -Exudate Type Serosanguineous Serosanguineous -Wound Margin Thickened & Thickened & Rolled Under Rolled Under -Granulation Amt Medium (34-66%) Medium (34-66%) -Granulation Quality [place] -Slough/Fibrin Yes Yes -Necrosis Amt Medium (34-66%) Medium (34-66%) -Necrotic Tissue Type Adherent Slough Adherent Slough -Structure Exposed N/A N/A -Texture (Lori-wound Skin Appearance) Assessed Scarring -Moisture (Lori-wound Skin Appearance) Assessed Maceration -Color (Lori-wound Skin Appearance) Assessed, Assessed, Hemosiderin Hemosiderin Staining Staining -Temperature (Lori-wound Skin No Abnormality No Abnormality Appearance) (Pt Warm) (Pt Warm) -Tenderness on Palpation (Lori-wound No No Skin Appearance) -Ulcer Cleansing Wound Cleanser Wound Cleanser -Foul Odor after Cleansing No No -Anesthetic Used 5% Lidocaine 5% Lidocaine Gel Gel Lower Limb Edema Present Yes Yes Right Calf (cm) 34.5 34.5 Right Ankle (cm) 21.5 21.5 WC - Nurse 2 - General Ulcer CM Notes Start: 09/19/23 09:30 Freq: Status: Active Protocol: Activity Type Activity Date Activity User E-sign Co-sign Detail Recorded Client Recorded Date Recorded By Document 09/19/23 09:53 Desktop 09/19/23 09:59 Document 09/26/23 10:37 Desktop 09/26/23 10:39 09/19/23 09/26/23 09:53 10:37 Wound Center Nurse 2 #1 R Lat Ankle -Time 09:53 10:37 -Correct Patient Yes Yes -Correct Side, Site, Position Yes Yes -Correct Procedure Yes Yes -Procedure Performed Yes Yes -Type of Procedure Debridement Debridement -Clinical Debridement Subcutaneous Subcutaneous -Tissue Removed Subcutaneous Subcutaneous -Post Debridement (cm) - Length 0.7 2 -Post Debridement (cm) - Width 0.5 2 -Post Debridement (cm) - Depth 0.2 0.1 -Total Square (Post) (cm) 0.35 4 -Area of Debridement (cm) - Length 0.7 2 -Area of Debridement (cm) - Width 0.5 2 -Total Square (Area) (cm) 0.35 4 -Tunneling No No -Undermining/Tunneling No No -Circular Undermining No No -Wound/Ulcer Outcome Not Healed Not Healed -Ulcer Cleansing Rinsed/ Rinsed/ Irrigated with Irrigated with Saline Saline -Foul Odor after Cleansing No No -Bleeding Controlled with Pressure Pressure -Treatment Response Procedure Tolerated Well -Assistive Device(s) Wheelchair -Debridement - Subq, 1st 20sq cm Yes Yes Pain Scale: 0-10 Numeric Is Patient Pain Free? Yes No R LE -Intensity 8 -Duration (hours) Acute -Pain Behavior No Change in Behavior -Alleviating Factors/Interventions Inactivity/ Resting WC - Nurse 3 - General Ulcer D/C NN Start: 09/19/23 09:30 Freq: Status: Active Protocol: Activity Type Activity Date Activity User E-sign Co-sign Detail Recorded Client Recorded Date Recorded By Document 09/19/23 10:17 Desktop 09/19/23 10:18 Document 09/26/23 11:13 RB Desktop 09/26/23 11:14 RB 09/19/23 09/26/23 10:17 11:13 Wound Care Center Nurse 3 #1 R Lat Ankle -Ulcer Cleansing Not Cleansed -Foul Odor after Cleansing No -Primary Dressing Applied Aquacel Extra, Aquacel Extra, Mepilex Border, Mepilex Border, Promogran Promogran -Primary Dressing Covered/Secured with Secured with Tape -Aquacel Extra 1 1 -Mepilex Border 1 1 -Promogran 1 1 Right -Lotion applied to leg before No compression wrap -Multi-Layered Wrap Application Multi-Layer Comp - Right ($ ) Treatment Response Procedure Tolerated Well Pain Scale: 0-10 Numeric Is Patient Pain Free? 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 Significantworsening noted, increase in size and lori ulcer maceration. As above, she states that she had increased drainage and pain all week which was not typical. No chills, fever or otherwise feeling of unwell. Cultures taken. CBC, CMP, CRP, ESR and x-ray ordered. Will review. If no significant concern for an overwhelming infection will treat with antibiotics however, if concern for osteoor significant infection, she was advised that my recommendation will be hospital admission. She voiced understanding. She was also advised that if shestarts to feel unwell, she should go to the emergency room. Again, she voiced understanding. Continue other chronic wound care recommendations. Her questions were answered and she was advised to call with any further questions or concerns. Follow up in 1 week. This note was generated with [employer] software. It may contain incorrectwords, spelling, and punctuation that were not noted in checking the note beforesigning. 09/26/23 1401 <Electronically signed by Chilango Laughlin MD> Cosigner Signature (if applicable): CC: ~ Signed [facility] Work Phone: 1(363) 468-192903-07-2024 Progress note Author Chilango Laughlin [facility] September 19, 2023 10:17am Note Date/Time September 19, 2023 10:1 0am [facility] [address] [place] [address] Progress Note - Wound Care 09/19/23 1005 MR#: [id number] Acct: [id number] Name: JULIANA MERIDA Rep #:[id number] : 1960 62 From: Chilango joy MD PCP: Bianca Palomares MD Status:REG RCR Location: History of Present Illness Date of Service: 09/19/23 Chief Complaint: Non healing right ankle ulcer History of Wound: Ms. Merida is a 62-year-old who was referred to this facility due to nonhealing right lateral ankle ulcer. Noted a year ago, started out as abullae and subsequently opened up. She states that over the years, she has had alginate and collagen dressings done at her facility without any significant improvement. History of diabetes mellitus, she is not sure of her most recent A1c but states that it has ranged from 8-13. Also history of tobacco use, smokes daily. There is significant pain around the ulcer but she denies otherwise significant leg pain. Does not wear compression. Mostly sedentary but sleeps in the bed. She feels well otherwise, no chills, fever, nausea, vomiting or change in bowel habit reported. Progress of Wound: No new concerns at this time. No significant maceration appreciated. Stable ulcer. Objective Data Objective Data Vital Signs: Vital Signs Temp Pulse Resp BP 96.3 F L 71 18 138/66 H 09/19/23 09:30 09/19/23 09:30 09/19/23 09:30 09/19/23 09:30 Charges/Coding Procedures Integumentary [id number]: [id number] Acrla subq tissue 20 sq cm/< Physical Exam Const alert, oriented x3 and no apparent distress General Appearance: cooperative, comfortable and well kempt HEENT normocephalic and head/scalp atraumatic Eyes EOMs intact bilaterally General Eye: normal appearance of both eyes Neck full ROM and supple General: normal visual inspection Resp normal respiratory effort Effort and Inspection: able to speak in complete sentences Extremity General Extremity: edema Skin Wounds: wounds noted Neuro oriented x3, CN's II-XII intact bilaterally and moves all extremities Psych mental status grossly normal, thought process normal, cooperative and affect normal Debridement Note Debridement Note Wound debrided: Right lateral foot/ankle Type of Debridement: Excisional debridement Anesthesia Used: 5% Lidocaine Gel Depth: Down to and including healthy tissue and in the subcutaneous layer Percentage of wound debrided: 100 Instrument Used: 3mm curette Tissue Removed: Slough and devitalized tissue Severity: Fat Layer Exposed Amount of bleeding with debridement: Mild Bleeding Controlled with: Pressure Patient tolerated procedure: Patient tolerated procedure well Post-Debridement Measurements and Additional Note: Post-Debridement Measurements/Treatment - Nurse 1 - General Ulcer Assessment Start: 09/19/23 09:30 Freq: Status: Active Protocol: CLOVIS Activity Type Activity Date Activity User E-sign Co-sign Detail Recorded Client Recorded Date Recorded By Document 09/19/23 09:30 Desktop 09/19/23 09:32 RB 09/19/23 09:30 - Today's Visit Information Type of service 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 Any new allergies or adverse reactions No Had a fall/change in ADL's that may No increase risk of falls Signs or symptoms of abuse and/or No neglect since last visit Have you been in the hospital since your No last visit? Has dressing in place as prescribed Yes Has compression in place as prescribed Yes Has offloadiing in place as prescribed No Experienced any changes in pain level or No management Pain Scale: 0-10 Numeric Is Patient Pain Free? Yes - Nurse 1 - General Ulcer Measurement Start: 09/19/23 09:30 Freq: Status: Active Protocol: Activity Type Activity Date Activity User E-sign Co-sign Detail Recorded Client Recorded Date Recorded By Document 09/19/23 09:30 RB Desktop 09/19/23 09:32 RB 09/19/23 09:30 Wound Center Nurse 1 #1 R Lat Ankle -Combined with other wound No -Current Size (cm) - Length 0.1 -Current Size (cm) - Width 0.1 -Current Size (cm) - Depth 0.1 -Total Square Cm 0.01 -Tunneling No -Undermining/Tunneling No -Circular Undermining No -Exudate Amt Medium -Exudate Type Serosanguineous -Wound Margin Thickened & Rolled Under -Granulation Amt Medium (34-66%) -Granulation Quality [place] -Slough/Fibrin Yes -Necrosis Amt Medium (34-66%) -Necrotic Tissue Type Adherent Slough -Structure Exposed N/A -Texture (Lori-wound Skin Appearance) Assessed -Moisture (Lori-wound Skin Appearance) Assessed -Color (Lori-wound Skin Appearance) Assessed, Hemosiderin Staining -Temperature (Lori-wound Skin No Abnormality Appearance) (Pt Warm) -Tenderness on Palpation (Lori-wound No Skin Appearance) -Ulcer Cleansing Wound Cleanser -Foul Odor after Cleansing No -Anesthetic Used 5% Lidocaine Gel Lower Limb Edema Present Yes Right Calf (cm) 34.5 Right Ankle (cm) 21.5 - Nurse 2 - General Ulcer CM Notes Start: 09/19/23 09:30 Freq: Status: Active Protocol: Activity Type Activity Date Activity User E-sign Co-sign Detail Recorded Client Recorded Date Recorded By Document 09/19/23 09:53 Desktop 09/19/23 09:59 09/19/23 09:53 Wound Center Nurse 2 #1 R Lat Ankle -Time 09:53 -Correct Patient Yes -Correct Side, Site, Position Yes -Correct Procedure Yes -Procedure Performed Yes -Type of Procedure Debridement -Clinical Debridement Subcutaneous -Tissue Removed Subcutaneous -Post Debridement (cm) - Length 0.7 -Post Debridement (cm) - Width 0.5 -Post Debridement (cm) - Depth 0.2 -Total Square (Post) (cm) 0.35 -Area of Debridement (cm) - Length 0.7 -Area of Debridement (cm) - Width 0.5 -Total Square (Area) (cm) 0.35 -Tunneling No -Undermining/Tunneling No -Circular Undermining No -Wound/Ulcer Outcome Not Healed -Ulcer Cleansing Rinsed/ Irrigated with Saline -Foul Odor after Cleansing No -Bleeding Controlled with Pressure -Treatment Response Procedure Tolerated Well -Assistive Device(s) Wheelchair -Debridement - Subq, 1st 20sq cm Yes Pain Scale: 0-10 Numeric Is Patient Pain Free? Yes Assessment/Plan Assessment/Plan (1) 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: CODE(S): L97.312 - Non-pressure chronic ulcer of right ankle with fat layer exposed (2) Insulin dependent diabetes mellitus: (3) Tobacco abuse: CODE(S): Z72.0 - Tobacco use PLAN: Plan Debridement done as documented above, procedure was well-tolerated. Stable Ulcer. No significant change but good granulation tissue and no periwound maceration appreciated. Continue Promogran and other chronic wound care. Continue 3M for edema management. Change on Saturday and Saturday at facility. Optimal protein intake. Continue other chronic wound care management and off loading. Her questions were answered and she was advised to call with any further questions or concerns. Follow up in 1 week. This note was generated with [employer] dictation software. It may contain incorrectwords, spelling, and punctuation that were not noted in checking the note beforesigning. 09/19/23 1017 <Electronically signed by Chilango Laughlin MD> Cosigner Signature (if applicable): CC: ~ Signed [facility] Work Phone: 1(654) 533-158703-05-2024 Miscellaneous Notes* Telephone Encounter - Funmilayo Pope MD - 09/17/2023 2:59 PM EST Needs [facility] Progress note Author Chilango Laughlin [facility] September 05, 2023 12:52pm Note Date/Time September 05, 2023 10:04am [facility] [address] [place] [address] Progress Note - Wound Care 09/05/23 0958 MR#: [id number] Acct: [id number] Name: JULIANA MERIDA Rep #:[id number] : 1960 62 From: Chilango joy MD PCP: Bianca Palomares MD Status:REG RCR Location: History of Present Illness Date of Service: 09/05/23 Chief Complaint: Non healing right ankle ulcer History of Wound: Ms. Merida is a 62-year-old who was referred to this facility due to nonhealing right lateral ankle ulcer. Noted a year ago, started out as abullae and subsequently opened up. She states that over the years, she has had alginate and collagen dressings done at her facility without any significant improvement. History of diabetes mellitus, she is not sure of her most recent A1c but states that it has ranged from 8-13. Also history of tobacco use, smokes daily. There is significant pain around the ulcer but she denies otherwise significant leg pain. Does not wear compression. Mostly sedentary but sleeps in the bed. She feels well otherwise, no chills, fever, nausea, vomiting or change in bowel habit reported. Progress of Wound: No new concerns at this time. Has completed antibiotics. Some improvement noted.Less maceration. Objective Data Objective Data Vital Signs: Vital Signs Temp Pulse Resp BP O2 Del Method 96.3 F L 77 18 132/65 H Room Air 09/05/23 09:29 09/05/23 09:29 09/05/23 09:29 09/05/23 09:29 08/15/23 08:53 Oxygen Delivery Method Room Air Lab / Micro Data Micro: Microbiology 08/22/23 09:30 Wound - Ankle Gram Stain - Final 08/22/23 09:30 Wound - Ankle Wound Culture - Final Meth. resistant Staph. aureus 08/22/23 09:30 Wound - Ankle Anaerobic Culture - Final No anaerobic bacteria isolated. Charges/Coding Procedures Integumentary 111xxx-113xx: [id number] Carla subq tissue 20 sq cm/< Physical Exam Const alert, oriented x3 and no apparent distress General Appearance: cooperative, comfortable and well kempt HEENT normocephalic and head/scalp atraumatic Eyes EOMs intact bilaterally General Eye: normal appearance of both eyes Neck full ROM and supple General: normal visual inspection Resp normal respiratory effort Effort and Inspection: able to speak in complete sentences Extremity General Extremity: edema Skin Wounds: wounds noted Neuro oriented x3, CN's II-XII intact bilaterally and moves all extremities Psych mental status grossly normal, thought process normal, cooperative and affect normal Debridement Note Debridement Note Wound debrided: Right lateral foot/ankle Type of Debridement: Excisional debridement Anesthesia Used: 5% Lidocaine Gel Depth: Down to and including healthy tissue and in the subcutaneous layer Percentage of wound debrided: 100 Instrument Used: 5mm curette Tissue Removed: Slough and devitalized tissue Severity: Fat Layer Exposed Amount of bleeding with debridement: Mild Bleeding Controlled with: Pressure Patient tolerated procedure: Patient tolerated procedure well Post-Debridement Measurements and Additional Note: Post-Debridement Measurements/Treatment - Nurse 1 - General Ulcer Assessment Start: 08/15/23 08:53 Freq: Status: Active Protocol: CLOVIS Activity Type Activity Date Activity User E-sign Co-sign Detail Recorded Client Recorded Date Recorded By Document 08/15/23 08:53 BMF Desktop 08/15/23 08:59 BMF Document 08/22/23 08:51 DL Desktop 08/22/23 08:59 DL Document 08/29/23 09:30 BMF Desktop 08/29/23 09:34 BMF Document 09/05/23 09:29 RB Desktop 09/05/23 09:32 RB 08/15/23 08/22/23 08/29/23 08:53 08:51 09:30 - Today's Visit Information Type of service Follow-up Visit Follow-up Visit 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 (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 (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 ) ) ) Arrival Mode Wheelchair Wheelchair Wheelchair Transfer Assistance None None None Patient Identification Verified (Name & Yes Yes Yes ) Patient Requires Transmission-Based No No No Precautions Finger Stick Blood Sugar(mg/dl) (if 136 97 indicated): Blood Sugar Stated by Stated by Patient Patient Vital Signs Temperature (97.8 F-99.1 F) 96 F L 97.2 F L 96.2 F L Temperature Source Temporal Temporal Temporal Pulse Rate (60-100) 80 72 71 Pulse Location Monitor Monitor Monitor Respiratory Rate (12-18) 16 18 18 Respiratory rate source Observation Observation Observation Oxygen Delivery Method Room Air Blood Pressure (90/60-120/80) 128/64 H 134/62 H 138/61 H Blood Pressure Mean (mm Hg) 85 86 86 Source Monitor Monitor Monitor Position Sitting Sitting Blood Pressure Location Right Arm Left Arm History Since Last Visit- (Skip if this is Patient's initial visit) Have you changed medications since your No No No last visit? Any new allergies or adverse reactions No No No Had a fall/change in ADL's that may No No No increase risk of falls Signs or symptoms of abuse and/or No No No neglect since last visit Have you been in the hospital since your No No No last visit? Has dressing in place as prescribed Yes Yes Yes Has compression in place as prescribed Yes Yes Yes Has offloadiing in place as prescribed N/A Yes No Experienced any changes in pain level or No No No management Left Footwear Slipper Right Footwear Slipper Pain Scale: 0-10 Numeric Is Patient Pain Free? 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 ) Arrival Mode Wheelchair Transfer Assistance None Patient Identification Verified (Name & Yes ) Patient Requires Transmission-Based No Precautions Finger Stick Blood Sugar(mg/dl) (if indicated): Blood Sugar Vital Signs Temperature (97.8 F-99.1 F) 96.3 F L Temperature Source Temporal Pulse Rate (60-100) 77 Pulse Location Monitor Respiratory Rate (12-18) 18 Respiratory rate source Observation Oxygen Delivery Method Blood Pressure (90/60-120/80) 132/65 H Blood Pressure Mean (mm Hg) 87 Source Monitor Position Semi-Fowlers Blood Pressure Location Left Arm History Since Last Visit- (Skip if this is Patient's initial visit) Have you changed medications since your No last visit? Any new allergies or adverse reactions No Had a fall/change in ADL's that may No increase risk of falls Signs or symptoms of abuse and/or No neglect since last visit Have you been in the hospital since your No last visit? Has dressing in place as prescribed Yes Has compression in place as prescribed Yes Has offloadiing in place as prescribed No Experienced any changes in pain level or No management Left Footwear Right Footwear Pain Scale: 0-10 Numeric Is Patient Pain Free? Yes RLE -Description -Intensity -Duration (hours) -Pain Behavior -Pain Aggravating Factors -Alleviating Factors/Interventions -Effectiveness of Alleviating Factor/ Intervention WC - Nurse 1 - General Ulcer Measurement Start: 08/15/23 08:53 Freq: Status: Active Protocol: Activity Type Activity Date Activity User E-sign Co-sign Detail Recorded Client Recorded Date Recorded By Document 08/15/23 08:53 BMF Desktop 08/15/23 08:59 BMF Document 08/22/23 08:51 DL Desktop 08/22/23 08:59 DL Document 08/29/23 09:30 BMF Desktop 08/29/23 09:34 BMF Document 09/05/23 09:29 RB Desktop 09/05/23 09:32 RB 08/15/23 08/22/23 08/29/23 08:53 08:51 09:30 Wound Center Nurse 1 #1 R Lat Ankle -Combined with other wound No No -Current Size (cm) - Length 0.9 1.2 0.7 -Current Size (cm) - Width 0.7 0.7 0.4 -Current Size (cm) - Depth 0.3 0.2 0.1 -Total Square Cm 0.63 0.84 0.28 -Date of Last Picture (Recall this 08/15/23 field) -Photo Taken Yes Yes -Epithelialization None Present -Tunneling No No -Undermining/Tunneling No No -Circular Undermining No No -Exudate Amt Large Medium Medium -Exudate Type Serosanguineous Serosanguineous Serosanguineous -Wound Margin Distinct, Distinct, Distinct, Outline Outline Outline Attached Attached Attached -Granulation Amt Medium (34-66%) Small (1-33%) Medium (34-66%) -Granulation Quality Red [place] -Slough/Fibrin Yes Yes -Necrosis Amt Medium (34-66%) Small (1-33%) Medium (34-66%) -Necrotic Tissue Type Adherent Slough Adherent Slough Adherent Slough -Structure Exposed N/A N/A -Texture (Lori-wound Skin Appearance) Assessed, Scarring Assessed Localized Edema ,Scarring -Moisture (Lori-wound Skin Appearance) Assessed, Maceration Assessed Maceration,Dry/ Scaly -Color (Lori-wound Skin Appearance) Assessed Hemosiderin Assessed Staining -Temperature (Lori-wound Skin No Abnormality No Abnormality No Abnormality Appearance) (Pt Warm) (Pt Warm) (Pt Warm) -Tenderness on Palpation (Lori-wound No No No Skin Appearance) -Ulcer Cleansing Soap and Water Soap and Water Wound Cleanser -Foul Odor after Cleansing No No No -Anesthetic Used 5% Lidocaine 4% Lidocaine 5% Lidocaine Gel Solution Gel Lower Limb Edema Present Yes Right Calf (cm) 34.5 34 33.1 Right Ankle (cm) 21.5 21.5 21.2 09/05/23 09:29 Wound Center Nurse 1 #1 R Lat Ankle -Combined with other wound No -Current Size (cm) - Length 0.8 -Current Size (cm) - Width 0.3 -Current Size (cm) - Depth 0.2 -Total Square Cm 0.24 -Date of Last Picture (Recall this field) -Photo Taken Yes -Epithelialization -Tunneling No -Undermining/Tunneling No -Circular Undermining No -Exudate Amt Large -Exudate Type Serosanguineous -Wound Margin Distinct, Outline Attached -Granulation Amt Medium (34-66%) -Granulation Quality [place] -Slough/Fibrin Yes -Necrosis Amt Medium (34-66%) -Necrotic Tissue Type Adherent Slough -Structure Exposed N/A -Texture (Lori-wound Skin Appearance) Assessed -Moisture (Lori-wound Skin Appearance) Maceration -Color (Lori-wound Skin Appearance) Assessed -Temperature (Lori-wound Skin No Abnormality Appearance) (Pt Warm) -Tenderness on Palpation (Lori-wound No Skin Appearance) -Ulcer Cleansing Wound Cleanser -Foul Odor after Cleansing No -Anesthetic Used 5% Lidocaine Gel Lower Limb Edema Present Yes Right Calf (cm) 33.6 Right Ankle (cm) 21 WC - Nurse 2 - General Ulcer CM Notes Start: 08/15/23 08:53 Freq: Status: Active Protocol: Activity Type Activity Date Activity User E-sign Co-sign Detail Recorded Client Recorded Date Recorded By Document 08/15/23 09:25 GM Desktop 08/15/23 09:31 GM Document 08/22/23 09:14 GM Desktop 08/22/23 09:28 GM Document 08/29/23 09:47 Desktop 08/29/23 09:49 Document 09/05/23 09:48 Desktop 09/05/23 09:52 08/15/23 08/22/23 08/29/23 09:25 09:14 09:47 Wound Center Nurse 2 #1 R Lat Ankle -Time 09:30 09:20 09:47 -Correct Patient Yes Yes Yes -Correct Side, Site, Position Yes Yes Yes -Correct Procedure Yes Yes Yes -Procedure Performed Yes Yes Yes -Type of Procedure Debridement Debridement Debridement -Clinical Debridement Subcutaneous Subcutaneous Subcutaneous -Tissue Removed Subcutaneous Subcutaneous Subcutaneous -Post Debridement (cm) - Length 0.8 1.1 0.8 -Post Debridement (cm) - Width 0.5 0.8 0.6 -Post Debridement (cm) - Depth 0.2 0.2 0.2 -Total Square (Post) (cm) 0.40 0.88 0.48 -Area of Debridement (cm) - Length 0.8 1.1 0.8 -Area of Debridement (cm) - Width 0.5 0.8 0.6 -Total Square (Area) (cm) 0.40 0.88 0.48 -Tunneling No No No -Undermining/Tunneling No No No -Circular Undermining No No No -Wound/Ulcer Outcome Not Healed Not Healed Not Healed -Ulcer Cleansing Rinsed/ Rinsed/ Rinsed/ Irrigated with Irrigated with Irrigated with Saline Saline Saline -Foul Odor after Cleansing No No No -Bioengineered Tissue No No No -Bleeding Controlled with Pressure Pressure Pressure,Silver Nitrate, SURGIFOAM -Treatment Response Procedure Procedure Procedure Not Tolerated Well Tolerated Well Tolerated Well -Offloading No -Debridement - Subq, 1st 20sq cm Yes Yes Yes Pain Scale: 0-10 Numeric Is Patient Pain Free? Yes Yes No RLE -Description Sharp -Intensity 8 -Duration (hours) during debridement -Pain Behavior Moaning -Alleviating Factors/Interventions Medication,Will continue to monitor 09/05/23 09:48 Wound Center Nurse 2 #1 R Lat Ankle -Time 09:49 -Correct Patient Yes -Correct Side, Site, Position Yes -Correct Procedure Yes -Procedure Performed Yes -Type of Procedure Debridement -Clinical Debridement Subcutaneous -Tissue Removed Subcutaneous -Post Debridement (cm) - Length 0.7 -Post Debridement (cm) - Width 0.4 -Post Debridement (cm) - Depth 0.2 -Total Square (Post) (cm) 0.28 -Area of Debridement (cm) - Length 0.7 -Area of Debridement (cm) - Width 0.4 -Total Square (Area) (cm) 0.28 -Tunneling No -Undermining/Tunneling No -Circular Undermining No -Wound/Ulcer Outcome Not Healed -Ulcer Cleansing Rinsed/ Irrigated with Saline -Foul Odor after Cleansing No -Bioengineered Tissue No -Bleeding Controlled with Pressure -Treatment Response Procedure Tolerated Well -Offloading -Debridement - Subq, 1st 20sq cm Yes Pain Scale: 0-10 Numeric Is Patient Pain Free? Yes RLE -Description -Intensity -Duration (hours) -Pain Behavior -Alleviating Factors/Interventions - Nurse 3 - General Ulcer D/C NN Start: 08/15/23 08:53 Freq: Status: Active Protocol: Activity Type Activity Date Activity User E-sign Co-sign Detail Recorded Client Recorded Date Recorded By Document 08/15/23 09:34 RB Desktop 08/15/23 09:36 RB Document 08/22/23 09:28 Desktop 08/22/23 09:29 Document 08/29/23 09:54 RB Desktop 08/29/23 09:56 RB 08/15/23 08/22/23 08/29/23 09:34 09:28 09:54 Wound Care Center Nurse 3 #1 R Lat Ankle -Ulcer Cleansing Not Cleansed Rinsed/ Irrigated with Saline -Foul Odor after Cleansing No -Primary Dressing Applied Aquacel Extra, Aquacel Extra, Aquacel Extra, Mepilex Border, Mepilex Border, Mepilex Border, Promogran Promogran Promogran -Other Dressing abd on to foot before 3M -Primary Dressing Covered/Secured with Dry Gauze -Aquacel Extra 1 1 1 -Mepilex Border 1 1 1 -Promogran 1 1 1 Right -Multi-Layered Wrap Application Multi-Layer Comp - Right ($ ) Treatment Response Procedure Procedure Tolerated Well Tolerated Well Pain Scale: 0-10 Numeric Is Patient Pain Free? Yes Yes No Teaching: Wound Center Dressing Your Wound -Person Taught Patient Patient -Teaching Method Discussion Discussion, Demonstration -Response to teaching Verbalize Verbalize understanding understanding WC - Visit Discharge Discharge Condition Stable Stable Stable Ambulatory Status Wheelchair Wheelchair Wheelchair Transportation Private Auto Private Auto gillcrest Medication Reconcilliation completed & No Yes No provided to patient/care provider Clinical Summary of Care Provided Yes Yes Yes Notes: #m applied per Yana Floyd assited with RN dressing & 3M wraps Assessment/Plan Assessment/Plan (1) 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: CODE(S): L97.312 - Non-pressure chronic ulcer of right ankle with fat layer exposed (2) Insulin dependent diabetes mellitus: (3) Tobacco abuse: CODE(S): Z72.0 - Tobacco use PLAN: Plan Debridement done as documented above, procedure was well-tolerated. Ulcer with some improvement. Less maceration and improvement in size. Continue Doxycycline for 1 more week. Continue Promogran and other chronic wound care. Continue 3M for edema management. Change on Saturday and Saturday at facility. Optimal protein intake. Continue other chronic wound care management and off loading. Her questions were answered and she was advised to call with any further questions or concerns. Follow up in 1 week. This note was generated with [employer] dictation software. It may contain incorrectwords, spelling, and punctuation that were not noted in checking the note beforesigning. 09/05/23 1252 <Electronically signed by Chilango Laughlin MD> Cosigner Signature (if applicable): CC: ~ Signed [facility] Work Phone: [phone] Progress note Author Chilango Laughlin [facility] August 30, 2023 1:48pm Note Date/Time August 29, 2023 10:09am [facility] [address] [place] [address] Progress Note - Wound Care 08/29/23 1008 MR#: [id number] Acct: [id number] Name: JULIANA MERIDA YANELI Rep #:[id number] : 1960 62 From: Chilango joy MD PCP: Bianca Palomares MD Status:REG RCR Location: History of Present Illness Date of Service: 08/29/23 Chief Complaint: Non healing right ankle ulcer History of Wound: Ms. Merida is a 62-year-old who was referred to this facility due to nonhealing right lateral ankle ulcer. Noted a year ago, started out as abullae and subsequently opened up. She states that over the years, she has had alginate and collagen dressings done at her facility without any significant improvement. History of diabetes mellitus, she is not sure of her most recent A1c but states that it has ranged from 8-13. Also history of tobacco use, smokes daily. There is significant pain around the ulcer but she denies otherwise significant leg pain. Does not wear compression. Mostly sedentary but sleeps in the bed. She feels well otherwise, no chills, fever, nausea, vomiting or change in bowel habit reported. Progress of Wound: Cultures grew MRSA, negative anaerobic. Culture done at facility per report, negative for osteomyelitis. Has had 2 days of antibiotics, reports increased pain/burning. Less maceration appreciated today. Objective Data Objective Data Vital Signs: Vital Signs Temp Pulse Resp BP O2 Del Method 96.2 F L 71 18 138/61 H Room Air 08/29/23 09:30 08/29/23 09:30 08/29/23 09:30 08/29/23 09:30 08/15/23 08:53 Oxygen Delivery Method Room Air Lab / Micro Data Micro: Microbiology 08/22/23 09:30 Wound - Ankle Gram Stain - Final 08/22/23 09:30 Wound - Ankle Wound Culture - Final Meth. resistant Staph. aureus 08/22/23 09:30 Wound - Ankle Anaerobic Culture - Final No anaerobic bacteria isolated. Charges/Coding Procedures Integumentary 111xxx-113xx: 15204 Carla subq tissue 20 sq cm/< Physical Exam Const alert, oriented x3 and no apparent distress General Appearance: cooperative, comfortable and well kempt HEENT normocephalic and head/scalp atraumatic Eyes EOMs intact bilaterally General Eye: normal appearance of both eyes Neck full ROM and supple General: normal visual inspection Resp normal respiratory effort Effort and Inspection: able to speak in complete sentences Extremity General Extremity: edema Skin Wounds: wounds noted Neuro oriented x3, CN's II-XII intact bilaterally and moves all extremities Psych mental status grossly normal, thought process normal, cooperative and affect normal Debridement Note Debridement Note Wound debrided: Right lateral foot/ankle Type of Debridement: Excisional debridement Anesthesia Used: 5% Lidocaine Gel Depth: Down to and including healthy tissue and in the subcutaneous layer Percentage of wound debrided: 100 Instrument Used: 5mm curette Tissue Removed: Slough and devitalized tissue Severity: Fat Layer Exposed Amount of bleeding with debridement: Mild Bleeding Controlled with: Pressure Patient tolerated procedure: Patient tolerated procedure well Post-Debridement Measurements and Additional Note: Post-Debridement Measurements/Treatment RUY - Nurse 1 - General Ulcer Assessment Start: 08/15/23 08:53 Freq: Status: Active Protocol: CLOVIS Activity Type Activity Date Activity User E-sign Co-sign Detail Recorded Client Recorded Date Recorded By Document 08/15/23 08:53 BMF Desktop 08/15/23 08:59 BMF Document 08/22/23 08:51 DL Desktop 08/22/23 08:59 DL Document 08/29/23 09:30 BM Desktop 08/29/23 09:34 BMF 08/15/23 08/22/23 08/29/23 08:53 08:51 09:30 RUY - Today's Visit Information Type of service Follow-up Visit Follow-up Visit 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 (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 (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 ) ) ) Arrival Mode Wheelchair Wheelchair Wheelchair Transfer Assistance None None None Patient Identification Verified (Name & Yes Yes Yes ) Patient Requires Transmission-Based No No No Precautions Finger Stick Blood Sugar(mg/dl) (if 136 97 indicated): Blood Sugar Stated by Stated by Patient Patient Vital Signs Temperature (97.8 F-99.1 F) 96 F L 97.2 F L 96.2 F L Temperature Source Temporal Temporal Temporal Pulse Rate (60-100) 80 72 71 Pulse Location Monitor Monitor Monitor Respiratory Rate (12-18) 16 18 18 Respiratory rate source Observation Observation Observation Oxygen Delivery Method Room Air Blood Pressure (90/60-120/80) 128/64 H 134/62 H 138/61 H Blood Pressure Mean (mm Hg) 85 86 86 Source Monitor Monitor Monitor Position Sitting Sitting Blood Pressure Location Right Arm Left Arm History Since Last Visit- (Skip if this is Patient's initial visit) Have you changed medications since your No No No last visit? Any new allergies or adverse reactions No No No Had a fall/change in ADL's that may No No No increase risk of falls Signs or symptoms of abuse and/or No No No neglect since last visit Have you been in the hospital since your No No No last visit? Has dressing in place as prescribed Yes Yes Yes Has compression in place as prescribed Yes Yes Yes Has offloadiing in place as prescribed N/A Yes No Experienced any changes in pain level or No No No management Left Footwear Slipper Right Footwear Slipper Pain Scale: 0-10 Numeric Is Patient Pain Free? Yes Yes No RLE -Description Sharp -Intensity 9 -Duration (hours) Acute -Pain Behavior Withdrawal from Touch -Pain Aggravating Factors Changing Position -Alleviating Factors/Interventions Medicate when due -Effectiveness of Alleviating Factor/ Moderately Intervention effective WC - Nurse 1 - General Ulcer Measurement Start: 08/15/23 08:53 Freq: Status: Active Protocol: Activity Type Activity Date Activity User E-sign Co-sign Detail Recorded Client Recorded Date Recorded By Document 08/15/23 08:53 BMF Desktop 08/15/23 08:59 BMF Document 08/22/23 08:51 DL Desktop 08/22/23 08:59 DL Document 08/29/23 09:30 TiltF Desktop 08/29/23 09:34 BMF 08/15/23 08/22/23 08/29/23 08:53 08:51 09:30 Wound Center Nurse 1 #1 R Lat Ankle -Combined with other wound No No -Current Size (cm) - Length 0.9 1.2 0.7 -Current Size (cm) - Width 0.7 0.7 0.4 -Current Size (cm) - Depth 0.3 0.2 0.1 -Total Square Cm 0.63 0.84 0.28 -Date of Last Picture (Recall this 08/15/23 field) -Photo Taken Yes Yes -Epithelialization None Present -Tunneling No No -Undermining/Tunneling No No -Circular Undermining No No -Exudate Amt Large Medium Medium -Exudate Type Serosanguineous Serosanguineous Serosanguineous -Wound Margin Distinct, Distinct, Distinct, Outline Outline Outline Attached Attached Attached -Granulation Amt Medium (34-66%) Small (1-33%) Medium (34-66%) -Granulation Quality Red [place] -Slough/Fibrin Yes Yes -Necrosis Amt Medium (34-66%) Small (1-33%) Medium (34-66%) -Necrotic Tissue Type Adherent Slough Adherent Slough Adherent Slough -Structure Exposed N/A N/A -Texture (Lori-wound Skin Appearance) Assessed, Scarring Assessed Localized Edema ,Scarring -Moisture (Lori-wound Skin Appearance) Assessed, Maceration Assessed Maceration,Dry/ Scaly -Color (Lori-wound Skin Appearance) Assessed Hemosiderin Assessed Staining -Temperature (Lori-wound Skin No Abnormality No Abnormality No Abnormality Appearance) (Pt Warm) (Pt Warm) (Pt Warm) -Tenderness on Palpation (Lori-wound No No No Skin Appearance) -Ulcer Cleansing Soap and Water Soap and Water Wound Cleanser -Foul Odor after Cleansing No No No -Anesthetic Used 5% Lidocaine 4% Lidocaine 5% Lidocaine Gel Solution Gel Lower Limb Edema Present Yes Right Calf (cm) 34.5 34 33.1 Right Ankle (cm) 21.5 21.5 21.2 WC - Nurse 2 - General Ulcer CM Notes Start: 08/15/23 08:53 Freq: Status: Active Protocol: Activity Type Activity Date Activity User E-sign Co-sign Detail Recorded Client Recorded Date Recorded By Document 08/15/23 09:25 Netflixktop 08/15/23 09:31 GM Document 08/22/23 09:14 Credit Coach Desktop 08/22/23 09:28 GM Document 08/29/23 09:47 Credit Coach Desktop 08/29/23 09:49 GM 08/15/23 08/22/23 08/29/23 09:25 09:14 09:47 Wound Center Nurse 2 #1 R Lat Ankle -Time 09:30 09:20 09:47 -Correct Patient Yes Yes Yes -Correct Side, Site, Position Yes Yes Yes -Correct Procedure Yes Yes Yes -Procedure Performed Yes Yes Yes -Type of Procedure Debridement Debridement Debridement -Clinical Debridement Subcutaneous Subcutaneous Subcutaneous -Tissue Removed Subcutaneous Subcutaneous Subcutaneous -Post Debridement (cm) - Length 0.8 1.1 0.8 -Post Debridement (cm) - Width 0.5 0.8 0.6 -Post Debridement (cm) - Depth 0.2 0.2 0.2 -Total Square (Post) (cm) 0.40 0.88 0.48 -Area of Debridement (cm) - Length 0.8 1.1 0.8 -Area of Debridement (cm) - Width 0.5 0.8 0.6 -Total Square (Area) (cm) 0.40 0.88 0.48 -Tunneling No No No -Undermining/Tunneling No No No -Circular Undermining No No No -Wound/Ulcer Outcome Not Healed Not Healed Not Healed -Ulcer Cleansing Rinsed/ Rinsed/ Rinsed/ Irrigated with Irrigated with Irrigated with Saline Saline Saline -Foul Odor after Cleansing No No No -Bioengineered Tissue No No No -Bleeding Controlled with Pressure Pressure Pressure,Silver Nitrate, SURGIFOAM -Treatment Response Procedure Procedure Procedure Not Tolerated Well Tolerated Well Tolerated Well -Offloading No -Debridement - Subq, 1st 20sq cm Yes Yes Yes Pain Scale: 0-10 Numeric Is Patient Pain Free? Yes Yes No RLE -Description Sharp -Intensity 8 -Duration (hours) during debridement -Pain Behavior Moaning -Alleviating Factors/Interventions Medication,Will continue to monitor - Nurse 3 - General Ulcer D/C NN Start: 08/15/23 08:53 Freq: Status: Active Protocol: Activity Type Activity Date Activity User E-sign Co-sign Detail Recorded Client Recorded Date Recorded By Document 08/15/23 09:34 RB Desktop 08/15/23 09:36 RB Document 08/22/23 09:28 Desktop 08/22/23 09:29 Document 08/29/23 09:54 RB Desktop 08/29/23 09:56 RB 08/15/23 08/22/23 08/29/23 09:34 09:28 09:54 Wound Care Center Nurse 3 #1 R Lat Ankle -Ulcer Cleansing Not Cleansed Rinsed/ Irrigated with Saline -Foul Odor after Cleansing No -Primary Dressing Applied Aquacel Extra, Aquacel Extra, Aquacel Extra, Mepilex Border, Mepilex Border, Mepilex Border, Promogran Promogran Promogran -Other Dressing abd on to foot before 3M -Primary Dressing Covered/Secured with Dry Gauze -Aquacel Extra 1 1 1 -Mepilex Border 1 1 1 -Promogran 1 1 1 Right -Multi-Layered Wrap Application Multi-Layer Comp - Right ($ ) Treatment Response Procedure Procedure Tolerated Well Tolerated Well Pain Scale: 0-10 Numeric Is Patient Pain Free? Yes Yes No Teaching: Wound Center Dressing Your Wound -Person Taught Patient Patient -Teaching Method Discussion Discussion, Demonstration -Response to teaching Verbalize Verbalize understanding understanding WC - Visit Discharge Discharge Condition Stable Stable Stable Ambulatory Status Wheelchair Wheelchair Wheelchair Transportation Private Auto Private Auto gillcrest Medication Reconcilliation completed & No Yes No provided to patient/care provider Clinical Summary of Care Provided Yes Yes Yes Notes: #m applied per Yana Floyd assited with RN dressing & 3M wraps Assessment/Plan Assessment/Plan (1) 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: CODE(S): L97.312 - Non-pressure chronic ulcer of right ankle with fat layer exposed (2) Insulin dependent diabetes mellitus: (3) Tobacco abuse: CODE(S): Z72.0 - Tobacco use PLAN: Plan Debridement done as documented above, procedure was well-tolerated. Less maceration however, pain persists. Has had just 2 days of antibiotics. X-ray report from facility reviewed, negative for osteomyelitis. Continue antibiotics until next visit, if pain persist, would recommend higher level imaging to definitively rule out osteomyelitis due to increased pain. For now, continue Promogran and other chronic wound care. Continue 3M for edema management. Change on Saturday at facility. Optimal protein intake. Continue other chronic wound care management and off loading. Her questions were answered and she was advised to call with any further questions or concerns. Follow up in 1 week. This note was generated with [employer] dictation software. It may contain incorrectwords, spelling, and punctuation that were not noted in checking the note beforesigning. 08/30/23 1348 <Electronically signed by Chilango Laughlin MD> Cosigner Signature (if applicable): CC: ~ Signed [facility] Work Phone: 1(353) 956-830102-08-2024 Progress note Author Chilango Laughlin [facility] August 22, 2023 9:39am Note Date/Time August 22, 2023 9 :33am [facility] [address] [place] [id number] Progress Note - Wound Care 08/22/2328 MR#: [id number] Acct: [id number] Name: JULIANA MERIDA YANELI Rep #:[id number] : 1960 62 From: Chilango joy MD PCP: Bianca Palomares MD Status:REG RCR Location: History of Present Illness Date of Service: 08/22/23 Chief Complaint: Non healing right ankle ulcer History of Wound: Ms. Merida is a 62-year-old who was referred to this facility due to nonhealing right lateral ankle ulcer. Noted a year ago, started out as abullae and subsequently opened up. She states that over the years, she has had alginate and collagen dressings done at her facility without any significant improvement. History of diabetes mellitus, she is not sure of her most recent A1c but states that it has ranged from 8-13. Also history of tobacco use, smokes daily. There is significant pain around the ulcer but she denies otherwise significant leg pain. Does not wear compression. Mostly sedentary but sleeps in the bed. She feels well otherwise, no chills, fever, nausea, vomiting or change in bowel habit reported. Progress of Wound: Worsening maceration. She denies increased pain. She states the dressing changes have been done as recommended. Continues to smoke and blood glucose levels not at goal. Objective Data Objective Data Vital Signs: Vital Signs Temp Pulse Resp BP O2 Del Method 97.2 F L 72 18 134/62 H Room Air 08/22/23 08:51 08/22/23 08:51 08/22/23 08:51 08/22/23 08:51 08/15/23 08:53 Oxygen Delivery Method Room Air Charges/Coding Procedures Integumentary 111xxx-113xx: 10848 Carla subq tissue 20 sq cm/< Physical Exam Const alert, oriented x3 and no apparent distress General Appearance: cooperative, comfortable and well kempt HEENT normocephalic and head/scalp atraumatic Eyes EOMs intact bilaterally General Eye: normal appearance of both eyes Neck full ROM and supple General: normal visual inspection Resp normal respiratory effort Effort and Inspection: able to speak in complete sentences Extremity General Extremity: edema Skin Wounds: wounds noted Neuro oriented x3, CN's II-XII intact bilaterally and moves all extremities Psych mental status grossly normal, thought process normal, cooperative and affect normal Debridement Note Debridement Note Wound debrided: Right lateral foot/ankle Type of Debridement: Excisional debridement Anesthesia Used: 5% Lidocaine Gel Depth: Down to and including healthy tissue and in the subcutaneous layer Percentage of wound debrided: 100 Instrument Used: 5mm curette Tissue Removed: Slough and devitalized tissue Severity: Fat Layer Exposed Amount of bleeding with debridement: Mild Bleeding Controlled with: Pressure Patient tolerated procedure: Patient tolerated procedure well Post-Debridement Measurements and Additional Note: Post-Debridement Measurements/Treatment - Nurse 1 - General Ulcer Assessment Start: 08/15/23 08:53 Freq: Status: Active Protocol: CLOVIS Activity Type Activity Date Activity User E-sign Co-sign Detail Recorded Client Recorded Date Recorded By Document 08/15/23 08:53 BMF Desktop 08/15/23 08:59 BMF Document 08/22/23 08:51 DL Desktop 08/22/23 08:59 DL 08/15/23 08/22/23 08:53 08:51 WC - Today's Visit Information Type of service Follow-up Visit 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 (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 ) ) Arrival Mode Wheelchair Wheelchair Transfer Assistance None None Patient Identification Verified (Name & Yes Yes ) Patient Requires Transmission-Based No No Precautions Finger Stick Blood Sugar(mg/dl) (if 136 indicated): Blood Sugar Stated by Patient Vital Signs Temperature (97.8 F-99.1 F) 96 F L 97.2 F L Temperature Source Temporal Temporal Pulse Rate (60-100) 80 72 Pulse Location Monitor Monitor Respiratory Rate (12-18) 16 18 Respiratory rate source Observation Observation Oxygen Delivery Method Room Air Blood Pressure (90/60-120/80) 128/64 H 134/62 H Blood Pressure Mean (mm Hg) 85 86 Source Monitor Monitor Position Sitting Blood Pressure Location Right Arm History Since Last Visit- (Skip if this is Patient's initial visit) Have you changed medications since your No No last visit? Any new allergies or adverse reactions No No Had a fall/change in ADL's that may No No increase risk of falls Signs or symptoms of abuse and/or No No neglect since last visit Have you been in the hospital since your No No last visit? Has dressing in place as prescribed Yes Yes Has compression in place as prescribed Yes Yes Has offloadiing in place as prescribed N/A Yes Experienced any changes in pain level or No No management Left Footwear Slipper Right Footwear Slipper Pain Scale: 0-10 Numeric Is Patient Pain Free? Yes Yes - Nurse 1 - General Ulcer Measurement Start: 08/15/23 08:53 Freq: Status: Active Protocol: Activity Type Activity Date Activity User E-sign Co-sign Detail Recorded Client Recorded Date Recorded By Document 08/15/23 08:53 BMF Desktop 08/15/23 08:59 BMF Document 08/22/23 08:51 DL Desktop 08/22/23 08:59 DL 08/15/23 08/22/23 08:53 08:51 Wound Center Nurse 1 #1 R Lat Ankle -Combined with other wound No -Current Size (cm) - Length 0.9 1.2 -Current Size (cm) - Width 0.7 0.7 -Current Size (cm) - Depth 0.3 0.2 -Total Square Cm 0.63 0.84 -Date of Last Picture (Recall this 08/15/23 field) -Photo Taken Yes -Epithelialization None Present -Tunneling No -Undermining/Tunneling No -Circular Undermining No -Exudate Amt Large Medium -Exudate Type Serosanguineous Serosanguineous -Wound Margin Distinct, Distinct, Outline Outline Attached Attached -Granulation Amt Medium (34-66%) Small (1-33%) -Granulation Quality Red [place] -Slough/Fibrin Yes -Necrosis Amt Medium (34-66%) Small (1-33%) -Necrotic Tissue Type Adherent Slough Adherent Slough -Structure Exposed N/A -Texture (Lori-wound Skin Appearance) Assessed, Scarring Localized Edema ,Scarring -Moisture (Lori-wound Skin Appearance) Assessed, Maceration Maceration,Dry/ Scaly -Color (Lori-wound Skin Appearance) Assessed Hemosiderin Staining -Temperature (Lori-wound Skin No Abnormality No Abnormality Appearance) (Pt Warm) (Pt Warm) -Tenderness on Palpation (Lori-wound No No Skin Appearance) -Ulcer Cleansing Soap and Water Soap and Water -Foul Odor after Cleansing No No -Anesthetic Used 5% Lidocaine 4% Lidocaine Gel Solution Right Calf (cm) 34.5 34 Right Ankle (cm) 21.5 21.5 WC - Nurse 2 - General Ulcer CM Notes Start: 08/15/23 08:53 Freq: Status: Active Protocol: Activity Type Activity Date Activity User E-sign Co-sign Detail Recorded Client Recorded Date Recorded By Document 08/15/23 09:25 GM Desktop 08/15/23 09:31 GM Document 08/22/23 09:14 GM Desktop 08/22/23 09:28 08/15/23 08/22/23 09:25 09:14 Wound Center Nurse 2 #1 R Lat Ankle -Time 09:30 09:20 -Correct Patient Yes Yes -Correct Side, Site, Position Yes Yes -Correct Procedure Yes Yes -Procedure Performed Yes Yes -Type of Procedure Debridement Debridement -Clinical Debridement Subcutaneous Subcutaneous -Tissue Removed Subcutaneous Subcutaneous -Post Debridement (cm) - Length 0.8 1.1 -Post Debridement (cm) - Width 0.5 0.8 -Post Debridement (cm) - Depth 0.2 0.2 -Total Square (Post) (cm) 0.40 0.88 -Area of Debridement (cm) - Length 0.8 1.1 -Area of Debridement (cm) - Width 0.5 0.8 -Total Square (Area) (cm) 0.40 0.88 -Tunneling No No -Undermining/Tunneling No No -Circular Undermining No No -Wound/Ulcer Outcome Not Healed Not Healed -Ulcer Cleansing Rinsed/ Rinsed/ Irrigated with Irrigated with Saline Saline -Foul Odor after Cleansing No No -Bioengineered Tissue No No -Bleeding Controlled with Pressure Pressure -Treatment Response Procedure Procedure Tolerated Well Tolerated Well -Debridement - Subq, 1st 20sq cm Yes Yes Pain Scale: 0-10 Numeric Is Patient Pain Free? Yes Yes - Nurse 3 - General Ulcer D/C NN Start: 08/15/23 08:53 Freq: Status: Active Protocol: Activity Type Activity Date Activity User E-sign Co-sign Detail Recorded Client Recorded Date Recorded By Document 08/15/23 09:34 [facility] 08/15/23 09:36 08/15/23 09:34 Wound Care Center Nurse 3 #1 R Lat Ankle -Primary Dressing Applied Aquacel Extra, Mepilex Border, Promogran -Other Dressing abd on to foot before 3M -Primary Dressing Covered/Secured with Dry Gauze -Aquacel Extra 1 -Mepilex Border 1 -Promogran 1 Treatment Response Procedure Tolerated Well Pain Scale: 0-10 Numeric Is Patient Pain Free? Yes - Visit Discharge Discharge Condition Stable Ambulatory Status Wheelchair Transportation Private Auto Medication Reconcilliation completed & No provided to patient/care provider Clinical Summary of Care Provided Yes Notes: #m applied per Yana Floyd RN Assessment/Plan Assessment/Plan (1) 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: CODE(S): L97.312 - Non-pressure chronic ulcer of right ankle with fat layer exposed (2) Insulin dependent diabetes mellitus: (3) Tobacco abuse: CODE(S): Z72.0 - Tobacco use PLAN: Plan Debridement done as documented above, procedure was well-tolerated. Worsening noted. Maceration persists despite holding off Bactroban. Cultures taken and x-ray ordered to rule out underlying osteomyelitis. Blood glucose readings and not within range, she was advised to work with her primary care physician to getthis better controlled. Recommend a fasting of less than 130. Smoking cessation also very strongly recommended. For now, continue Promogran and otherchronic wound care. Continue 3M for edema management. Change on Saturday at facility. Optimal protein intake. Continue other chronic wound care management and off loading. Her questions were answered and she was advised to call with any further questions or concerns. Follow up in 1 week. This note was generated with [employer] dictation software. It may contain incorrectwords, spelling, and punctuation that were not noted in checking the note beforesigning. 08/22/23 0939 <Electronically signed by Chilango Laughlin MD> Cosigner Signature (if applicable): CC: ~ Signed [facility] Work Phone: [phone]) 387-616902-01-2024 Progress note Author Chilango Laughlin [facility] August 15, 2023 9:38am Note Date/Time August 15, 2023 9 :38am [facility] [address] [place] [id number] Progress Note - Wound Care 08/15/23 0936 MR#: [id number] Acct: [id number] Name: JULIANA MERIDA YANELI Rep #:[id number] : 1960 62 From: Chilango joy MD PCP: Bianca Palomares MD Status:REG RCR Location: History of Present Illness Date of Service: 08/15/23 Chief Complaint: Non healing right ankle ulcer History of Wound: Ms. Merida is a 62-year-old who was referred to this facility due to nonhealing right lateral ankle ulcer. Noted a year ago, started out as abullae and subsequently opened up. She states that over the years, she has had alginate and collagen dressings done at her facility without any significant improvement. History of diabetes mellitus, she is not sure of her most recent A1c but states that it has ranged from 8-13. Also history of tobacco use, smokes daily. There is significant pain around the ulcer but she denies otherwise significant leg pain. Does not wear compression. Mostly sedentary but sleeps in the bed. She feels well otherwise, no chills, fever, nausea, vomiting or change in bowel habit reported. Progress of Wound: Improvement in wound size however periwound maceration noted. No new concerns reported by the patient. Objective Data Objective Data Vital Signs: Vital Signs Temp Pulse Resp BP O2 Del Method 96 F L 80 16 128/64 H Room Air 08/15/23 08:53 08/15/23 08:53 08/15/23 08:53 08/15/23 08:53 08/15/23 08:53 Oxygen Delivery Method Room Air Charges/Coding Procedures Integumentary 111xxx-113xx: 72007 Carla subq tissue 20 sq cm/< Physical Exam Const alert, oriented x3 and no apparent distress General Appearance: cooperative, comfortable and well kempt HEENT normocephalic and head/scalp atraumatic Eyes EOMs intact bilaterally General Eye: normal appearance of both eyes Neck full ROM and supple General: normal visual inspection Resp normal respiratory effort Effort and Inspection: able to speak in complete sentences Extremity General Extremity: edema Skin Wounds: wounds noted Neuro oriented x3, CN's II-XII intact bilaterally and moves all extremities Psych mental status grossly normal, thought process normal, cooperative and affect normal Debridement Note Debridement Note Wound debrided: Right lateral foot/ankle Type of Debridement: Excisional debridement Anesthesia Used: 5% Lidocaine Gel Depth: Down to and including healthy tissue and in the subcutaneous layer Percentage of wound debrided: 100 Instrument Used: 5mm curette Tissue Removed: Slough and devitalized tissue Severity: Fat Layer Exposed Amount of bleeding with debridement: Mild Bleeding Controlled with: Pressure Patient tolerated procedure: Patient tolerated procedure well Post-Debridement Measurements and Additional Note: Post-Debridement Measurements/Treatment RUY - Nurse 1 - General Ulcer Assessment Start: 08/15/23 08:53 Freq: Status: Active Protocol: WC.LOWEXT Activity Type Activity Date Activity User E-sign Co-sign Detail Recorded Client Recorded Date Recorded By Document 08/15/23 08:53 [facility] Desktop 08/15/23 08:59 [facility] 08/15/23 08:53 - Today's Visit Information Type of service 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 ) Arrival Mode Wheelchair Transfer Assistance None Patient Identification Verified (Name & Yes ) Patient Requires Transmission-Based No Precautions Vital Signs Temperature (97.8 F-99.1 F) 96 F L Temperature Source Temporal Pulse Rate (60-100) 80 Pulse Location Monitor Respiratory Rate (12-18) 16 Respiratory rate source Observation Oxygen Delivery Method Room Air Blood Pressure (90/60-120/80) 128/64 H Blood Pressure Mean (mm Hg) 85 Source Monitor Position Sitting Blood Pressure Location Right Arm History Since Last Visit- (Skip if this is Patient's initial visit) Have you changed medications since your No last visit? Any new allergies or adverse reactions No Had a fall/change in ADL's that may No increase risk of falls Signs or symptoms of abuse and/or No neglect since last visit Have you been in the hospital since your No last visit? Has dressing in place as prescribed Yes Has compression in place as prescribed Yes Has offloadiing in place as prescribed N/A Experienced any changes in pain level or No management Left Footwear Slipper Right Footwear Slipper Pain Scale: 0-10 Numeric Is Patient Pain Free? Yes - Nurse 1 - General Ulcer Measurement Start: 08/15/23 08:53 Freq: Status: Active Protocol: Activity Type Activity Date Activity User E-sign Co-sign Detail Recorded Client Recorded Date Recorded By Document 08/15/23 08:53 [facility] [employer] 08/15/23 08:59 [facility] 08/15/23 08:53 Wound Center Nurse 1 #1 R Lat Ankle -Combined with other wound No -Current Size (cm) - Length 0.9 -Current Size (cm) - Width 0.7 -Current Size (cm) - Depth 0.3 -Total Square Cm 0.63 -Date of Last Picture (Recall this 08/15/23 field) -Photo Taken Yes -Epithelialization None Present -Tunneling No -Undermining/Tunneling No -Circular Undermining No -Exudate Amt Large -Exudate Type Serosanguineous -Wound Margin Distinct, Outline Attached -Granulation Amt Medium (34-66%) -Granulation Quality Red -Slough/Fibrin Yes -Necrosis Amt Medium (34-66%) -Necrotic Tissue Type Adherent Slough -Texture (Lori-wound Skin Appearance) Assessed, Localized Edema ,Scarring -Moisture (Lori-wound Skin Appearance) Assessed, Maceration,Dry/ Scaly -Color (Lori-wound Skin Appearance) Assessed -Temperature (Lori-wound Skin No Abnormality Appearance) (Pt Warm) -Tenderness on Palpation (Lori-wound No Skin Appearance) -Ulcer Cleansing Soap and Water -Foul Odor after Cleansing No -Anesthetic Used 5% Lidocaine Gel Right Calf (cm) 34.5 Right Ankle (cm) 21.5 WC - Nurse 2 - General Ulcer CM Notes Start: 08/15/23 08:53 Freq: Status: Active Protocol: Activity Type Activity Date Activity User E-sign Co-sign Detail Recorded Client Recorded Date Recorded By Document 08/15/23 09:25 Desktop 08/15/23 09:31 08/15/23 09:25 Wound Center Nurse 2 #1 R Lat Ankle -Time 09:30 -Correct Patient Yes -Correct Side, Site, Position Yes -Correct Procedure Yes -Procedure Performed Yes -Type of Procedure Debridement -Clinical Debridement Subcutaneous -Tissue Removed Subcutaneous -Post Debridement (cm) - Length 0.8 -Post Debridement (cm) - Width 0.5 -Post Debridement (cm) - Depth 0.2 -Total Square (Post) (cm) 0.40 -Area of Debridement (cm) - Length 0.8 -Area of Debridement (cm) - Width 0.5 -Total Square (Area) (cm) 0.40 -Tunneling No -Undermining/Tunneling No -Circular Undermining No -Wound/Ulcer Outcome Not Healed -Ulcer Cleansing Rinsed/ Irrigated with Saline -Foul Odor after Cleansing No -Bioengineered Tissue No -Bleeding Controlled with Pressure -Treatment Response Procedure Tolerated Well -Debridement - Subq, 1st 20sq cm Yes Pain Scale: 0-10 Numeric Is Patient Pain Free? Yes - Nurse 3 - General Ulcer D/C NN Start: 08/15/23 08:53 Freq: Status: Active Protocol: Activity Type Activity Date Activity User E-sign Co-sign Detail Recorded Client Recorded Date Recorded By Document 08/15/23 09:34 RB Desktop 08/15/23 09:36 RB 08/15/23 09:34 Wound Care Center Nurse 3 #1 R Lat Ankle -Primary Dressing Applied Aquacel Extra, Mepilex Border, Promogran -Other Dressing abd on to foot before 3M -Primary Dressing Covered/Secured with Dry Gauze -Aquacel Extra 1 -Mepilex Border 1 -Promogran 1 Treatment Response Procedure Tolerated Well Pain Scale: 0-10 Numeric Is Patient Pain Free? Yes WC - Visit Discharge Discharge Condition Stable Ambulatory Status Wheelchair Transportation Private Auto Medication Reconcilliation completed & No provided to patient/care provider Clinical Summary of Care Provided Yes Notes: #m applied per Yana Floyd RN Assessment/Plan Assessment/Plan (1) 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: CODE(S): L97.312 - Non-pressure chronic ulcer of right ankle with fat layer exposed (2) Insulin dependent diabetes mellitus: (3) Tobacco abuse: CODE(S): Z72.0 - Tobacco use PLAN: Plan Debridement done as documented above, procedure was well-tolerated. Some improvement noted. Continue Promogran but hold off mupirocin due to periwound maceration. Consider culture next week if needed. Continue 3M for edema management. Change on Saturday at facility. Optimal protein intake. Continue other chronic wound care management and off loading. Her questions were answered and she was advised to call with any further questions or concerns. Follow up in 1 week. This note was generated with [employer] dictation software. It may contain incorrectwords, spelling, and punctuation that were not noted in checking the note beforesigning. 08/15/23937 <Electronically signed by Chilango Laughlin MD> Cosigner Signature (if applicable): CC: ~ Signed [facility] Work Phone: [phone]) 192-805601-25-2024 Progress note Author Chilango Laughlin [facility] August 08, 2023 9:32am Note Date/Time August 08, 2023 9 :26am [facility] [address] [place] [id number] Progress Note - Wound Care 08/08/23919 MR#: [id number] Acct: [id number] Name: JULIANA MERIDA Rep #:[id number] : 1960 62 From: Chilango joy MD PCP: Bianca Palomares MD Status:REG RCR Location: History of Present Illness Date of Service: 08/08/23 Chief Complaint: Non healing right ankle ulcer History of Wound: Ms. Merida is a 62-year-old who was referred to this facility due to nonhealing right lateral ankle ulcer. Noted a year ago, started out as abullae and subsequently opened up. She states that over the years, she has had alginate and collagen dressings done at her facility without any significant improvement. History of diabetes mellitus, she is not sure of her most recent A1c but states that it has ranged from 8-13. Also history of tobacco use, smokes daily. There is significant pain around the ulcer but she denies otherwise significant leg pain. Does not wear compression. Mostly sedentary but sleeps in the bed. She feels well otherwise, no chills, fever, nausea, vomiting or change in bowel habit reported. Progress of Wound: Improving. No new concerns at this time. Objective Data Objective Data Vital Signs: Vital Signs Temp Pulse Resp BP O2 Del Method 96.5 F L 84 20 H 112/60 Room Air 08/08/23 09:02 08/08/23 09:02 08/08/23 09:02 08/08/23 09:02 08/01/23 08:39 Oxygen Delivery Method Room Air Lab / Micro Data Micro: Microbiology 07/18/23 09:35 Wound - Ankle Gram Stain - Final 07/18/23 09:35 Wound - Ankle Wound Culture - Final Meth. resistant Staph. aureus 07/18/23 09:35 Wound - Ankle Anaerobic Culture - Final No anaerobic bacteria isolated. Charges/Coding Procedures Integumentary 111xxx-113xx: 29507 Carla subq tissue 20 sq cm/< Physical Exam Const alert, oriented x3 and no apparent distress General Appearance: cooperative, comfortable and well kempt HEENT normocephalic and head/scalp atraumatic Eyes EOMs intact bilaterally General Eye: normal appearance of both eyes Neck full ROM and supple General: normal visual inspection Resp normal respiratory effort Effort and Inspection: able to speak in complete sentences Extremity General Extremity: edema Skin Wounds: wounds noted Neuro oriented x3, CN's II-XII intact bilaterally and moves all extremities Psych mental status grossly normal, thought process normal, cooperative and affect normal Debridement Note Debridement Note Wound debrided: Right lateral foot/ankle Type of Debridement: Excisional debridement Anesthesia Used: 5% Lidocaine Gel Depth: Down to and including healthy tissue and in the subcutaneous layer Percentage of wound debrided: 100 Instrument Used: 5mm curette Tissue Removed: Slough and devitalized tissue Severity: Fat Layer Exposed Amount of bleeding with debridement: Mild Bleeding Controlled with: Pressure Patient tolerated procedure: Patient tolerated procedure well Post-Debridement Measurements and Additional Note: Post-Debridement Measurements/Treatment - Nurse 1 - General Ulcer Assessment Start: 07/18/23 08:50 Freq: Status: Active Protocol: RUYProbiodrugMaria Luisa Activity Type Activity Date Activity User E-sign Co-sign Detail Recorded Client Recorded Date Recorded By Document 07/18/23 08:50 BMF Desktop 07/18/23 08:58 BMF Document 07/25/23 08:49 BMF Desktop 07/25/23 08:56 BMF Document 08/01/23 08:39 BMF Desktop 08/01/23 08:49 BMF Document 08/08/23 09:02 DL Desktop 08/08/23 09:05 DL 07/18/23 07/25/23 08/01/23 08:50 08:49 08:39 - Today's Visit Information Type of service Follow-up Visit Follow-up Visit 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 (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 (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 ) ) ) Arrival Mode Wheelchair Wheelchair Wheelchair Transfer Assistance None None None Patient Identification Verified (Name & Yes Yes Yes ) Patient Requires Transmission-Based No No No Precautions Finger Stick Blood Sugar(mg/dl) (if indicated): Blood Sugar Vital Signs Temperature (97.8 F-99.1 F) 97.1 F L 97 F L 96.3 F L Temperature Source Temporal Temporal Temporal Pulse Rate (60-100) 81 80 83 Pulse Location Monitor Monitor Monitor Respiratory Rate (12-18) 16 16 16 Respiratory rate source Observation Observation Observation Oxygen Delivery Method Room Air Room Air Room Air Blood Pressure (90/60-120/80) 127/57 H 106/55 L 130/63 H Blood Pressure Mean (mm Hg) 80 72 85 Source Monitor Monitor Monitor Position Sitting Sitting Sitting Blood Pressure Location Right Arm Left Arm Right Arm History Since Last Visit- (Skip if this is Patient's initial visit) Have you changed medications since your No No No last visit? Any new allergies or adverse reactions No No No Had a fall/change in ADL's that may No No No increase risk of falls Signs or symptoms of abuse and/or No No No neglect since last visit Have you been in the hospital since your No No No last visit? Has dressing in place as prescribed Yes Yes Yes Has compression in place as prescribed Yes Yes Yes Has offloadiing in place as prescribed N/A N/A N/A Experienced any changes in pain level or No No No management Left Footwear Regular Shoe Regular Shoe Regular Shoe Right Footwear Regular Shoe Regular Shoe Regular Shoe Pain Scale: 0-10 Numeric Is Patient Pain Free? 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 ) Arrival Mode Wheelchair Transfer Assistance None Patient Identification Verified (Name & Yes ) Patient Requires Transmission-Based No Precautions Finger Stick Blood Sugar(mg/dl) (if 219 indicated): Blood Sugar Stated by Patient Vital Signs Temperature (97.8 F-99.1 F) 96.5 F L Temperature Source Temporal Pulse Rate (60-100) 84 Pulse Location Monitor Respiratory Rate (12-18) 20 H Respiratory rate source Observation Oxygen Delivery Method Blood Pressure (90/60-120/80) 112/60 Blood Pressure Mean (mm Hg) 77 Source Monitor Position Blood Pressure Location History Since Last Visit- (Skip if this is Patient's initial visit) Have you changed medications since your No last visit? Any new allergies or adverse reactions No Had a fall/change in ADL's that may No increase risk of falls Signs or symptoms of abuse and/or No neglect since last visit Have you been in the hospital since your No last visit? Has dressing in place as prescribed Yes Has compression in place as prescribed Yes Has offloadiing in place as prescribed N/A Experienced any changes in pain level or No management Left Footwear Right Footwear Pain Scale: 0-10 Numeric Is Patient Pain Free? Yes - Nurse 1 - General Ulcer Measurement Start: 07/18/23 08:50 Freq: Status: Active Protocol: Activity Type Activity Date Activity User E-sign Co-sign Detail Recorded Client Recorded Date Recorded By Document 07/18/23 08:50 BMF Desktop 07/18/23 08:58 [facility] Document 07/25/23 08:49 BM Desktop 07/25/23 08:56 [facility] Document 08/01/23 08:39 BMF Desktop 08/01/23 08:49 [facility] Document 08/08/23 09:02 DL Desktop 08/08/23 09:05 DL 07/18/23 07/25/23 08/01/23 08:50 08:49 08:39 Wound Center Nurse 1 #1 R Lat Ankle -Combined with other wound No No No -Current Size (cm) - Length 1.3 1.2 1 -Current Size (cm) - Width 0.7 0.7 0.4 -Current Size (cm) - Depth 0.2 0.1 0.2 -Total Square Cm 0.91 0.84 0.4 -Date of Last Picture (Recall this 07/18/23 08/01/23 field) -Photo Taken Yes Yes -Epithelialization None Present Small 1-33% -Tunneling No No No -Undermining/Tunneling No No No -Circular Undermining No No No -Exudate Amt Medium Medium Medium -Exudate Type Serosanguineous Serosanguineous Serosanguineous -Wound Margin Thickened Distinct, Thickened Outline Attached -Granulation Amt Medium (34-66%) Large (67-100%) Medium (34-66%) -Granulation Quality Red Red Pale,Red -Slough/Fibrin Yes Yes Yes -Necrosis Amt Medium (34-66%) Small (1-33%) Small (1-33%) -Necrotic Tissue Type Adherent Slough Adherent Slough Adherent Slough -Structure Exposed -Texture (Lori-wound Skin Appearance) Assessed, Assessed, Assessed,Callus Scarring Scarring -Moisture (Lori-wound Skin Appearance) Assessed, Assessed, Assessed, Maceration,Dry/ Maceration,Dry/ Maceration,Dry/ Scaly Scaly Scaly -Color (Lori-wound Skin Appearance) Assessed Assessed, Assessed Erythema -Temperature (Lori-wound Skin No Abnormality No Abnormality No Abnormality Appearance) (Pt Warm) (Pt Warm) (Pt Warm) -Tenderness on Palpation (Lori-wound No No No Skin Appearance) -Ulcer Cleansing Soap and Water Soap and Water Soap and Water -Foul Odor after Cleansing No No No -Anesthetic Used 5% Lidocaine 5% Lidocaine 5% Lidocaine Gel Gel Gel Lower Limb Edema Present Yes Right Calf (cm) 34.5 34.8 34.7 Right Ankle (cm) 21.3 21.1 21.5 08/08/23 09:02 Wound Center Nurse 1 #1 R Lat Ankle -Combined with other wound -Current Size (cm) - Length 0.7 -Current Size (cm) - Width 0.9 -Current Size (cm) - Depth 0.2 -Total Square Cm 0.63 -Date of Last Picture (Recall this field) -Photo Taken -Epithelialization -Tunneling -Undermining/Tunneling -Circular Undermining -Exudate Amt Medium -Exudate Type Serosanguineous -Wound Margin Thickened -Granulation Amt Small (1-33%) -Granulation Quality Pale,[place] -Slough/Fibrin -Necrosis Amt Small (1-33%) -Necrotic Tissue Type Adherent Slough -Structure Exposed N/A -Texture (Lori-wound Skin Appearance) Callus,Scarring -Moisture (Lori-wound Skin Appearance) Maceration -Color (Lori-wound Skin Appearance) Hemosiderin Staining -Temperature (Lori-wound Skin No Abnormality Appearance) (Pt Warm) -Tenderness on Palpation (Lori-wound Skin Appearance) -Ulcer Cleansing Soap and Water -Foul Odor after Cleansing No -Anesthetic Used 5% Lidocaine Gel Lower Limb Edema Present Right Calf (cm) 35 Right Ankle (cm) 22.7 WC - Nurse 2 - General Ulcer CM Notes Start: 07/18/23 08:50 Freq: Status: Active Protocol: Activity Type Activity Date Activity User E-sign Co-sign Detail Recorded Client Recorded Date Recorded By Document 07/18/23 09:32 GM Desktop 07/18/23 09:38 GM Document 07/25/23 09:05 GM Desktop 07/25/23 09:11 GM Document 08/01/23 09:52 BMF Desktop 08/01/23 09:57 BMF Edit Result 08/01/23 09:52 BMF (1) [id number] 08/01/23 14:12 GM (1) #1 R Lat Ankle - Bleeding Controlled with NA => Pressure,Silver => Nitrate - Treatment Response => Procedure => Tolerated Well - Assistive Device(s) => Wheelchair 0107/25/23 08/01/23 09:32 09:05 09:52 Wound Center Nurse 2 #1 R Lat Ankle -Time 09:35 09:05 09:52 -Correct Patient Yes Yes Yes -Correct Side, Site, Position Yes Yes Yes -Correct Procedure Yes Yes Yes -Procedure Performed Yes Yes Yes -Type of Procedure Debridement Debridement Debridement -Clinical Debridement Subcutaneous Subcutaneous Subcutaneous -Tissue Removed Subcutaneous Subcutaneous Subcutaneous -Post Debridement (cm) - Length 1.3 0.9 -Post Debridement (cm) - Width 0.9 0.8 -Post Debridement (cm) - Depth 0.1 0.1 -Total Square (Post) (cm) 1.17 0.72 -Area of Debridement (cm) - Length 1.3 0.9 -Area of Debridement (cm) - Width 0.9 0.8 -Total Square (Area) (cm) 1.17 0.72 -Tunneling No No No -Undermining/Tunneling No No No -Circular Undermining No No No -Wound/Ulcer Outcome Not Healed Not Healed Not Healed -Ulcer Cleansing Rinsed/ Rinsed/ Rinsed/ Irrigated with Irrigated with Irrigated with Saline Saline Saline -Foul Odor after Cleansing No No No -Bioengineered Tissue No No No -Bleeding Controlled with Pressure Pressure,Silver Pressure,Silver Nitrate Nitrate -Treatment Response Procedure Procedure Procedure Tolerated Well Tolerated Well Tolerated Well -Assistive Device(s) Wheelchair -Debridement - Subq, 1st 20sq cm Yes Yes Yes Pain Scale: 0-10 Numeric Is Patient Pain Free? Yes Yes Yes WC - Nurse 3 - General Ulcer D/C NN Start: 07/18/23 08:50 Freq: Status: Active Protocol: Activity Type Activity Date Activity User E-sign Co-sign Detail Recorded Client Recorded Date Recorded By Document 07/18/23 09:48 Desktop 07/18/23 09:50 Document 07/25/23 09:22 Desktop 07/25/23 09:23 Document 08/01/23 10:06 [facility] Desktop 08/01/23 10:07 [facility] 07/18/23 07/25/23 08/01/23 09:48 09:22 10:06 Wound Care Center Nurse 3 #1 R Lat Ankle -Ulcer Cleansing Not Cleansed Not Cleansed Rinsed/ Irrigated with Saline -Foul Odor after Cleansing No No No -Primary Dressing Applied Mepilex Border, Aquacel Extra, Aquacel Extra, Promogran Mepilex Border, Mepilex Border, Promogran Promogran -Other Dressing bactroban -Other Covering drsg per rb rn -Aquacel Extra 1 1 -Mepilex Border 1 1 1 -Promogran 1 1 1 Right -Lotion applied to leg before Yes Yes Yes compression wrap -Multi-Layered Wrap Application Multi-Layer Multi-Layer Multi-Layer Comp - Right ($ Comp - Right ($ Comp - Right ($ ) ) ) -Other extra sent with applied per rb patient rn Treatment Response Procedure Tolerated Well Pain Scale: 0-10 Numeric Is Patient Pain Free? Yes Yes Yes Teaching: Wound Center Eliminating Foot Pressure -Person Taught Patient Patient -Teaching Method Discussion Discussion -Response to teaching Verbalize Verbalize understanding understanding Dressing Your Wound -Person Taught Patient Patient -Teaching Method Discussion Discussion -Response to teaching Verbalize Verbalize understanding understanding WC - Visit Discharge Discharge Condition Stable Stable Stable Ambulatory Status Wheelchair Wheelchair Wheelchair Transportation Private Auto Private Auto ecf transport Medication Reconcilliation completed & Yes Yes provided to patient/care provider Clinical Summary of Care Provided Yes Yes Facility Type [facility] Care Facility Assessment/Plan Assessment/Plan (1) 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: CODE(S): L97.312 - Non-pressure chronic ulcer of right ankle with fat layer exposed (2) Insulin dependent diabetes mellitus: (3) Tobacco abuse: CODE(S): Z72.0 - Tobacco use PLAN: Plan Debridement done as documented above, procedure was well-tolerated. Some improvement noted. Continue Promogran, mupirocin and foam dressing. Continue 3Mfor edema management. Change on Saturday at facility. Optimal protein intake. Continue other chronic wound care management and off loading. Her questions were answered and she was advised to call with any further questions or concerns. Follow up in 1 week. This note was generated with [employer] dictation software. It may contain incorrectwords, spelling, and punctuation that were not noted in checking the note beforesigning. 08/08/23 0932 <Electronically signed by Chilango Laughlin MD> Cosigner Signature (if applicable): CC: ~ Signed [facility] Work Phone: [phone] Progress note Author Efewongbe Oleghe [facility] August 01, 2023 6:49pm Note Date/Time August 01, 2023 1 0:52am [facility] [address] [place] [address] Progress Note - Wound Care 08/01/23 1048 MR#: [id number] Acct: [id number] Name: JULIANA MERIDA Rep #:[id number] : 1960 62 From: Chilango joy MD PCP: Bianca Palomares MD Status:REG RCR Location: History of Present Illness Date of Service: 08/01/23 Chief Complaint: Non healing right ankle ulcer History of Wound: Ms. Merida is a 62-year-old who was referred to this facility due to nonhealing right lateral ankle ulcer. Noted a year ago, started out as abullae and subsequently opened up. She states that over the years, she has had alginate and collagen dressings done at her facility without any significant improvement. History of diabetes mellitus, she is not sure of her most recent A1c but states that it has ranged from 8-13. Also history of tobacco use, smokes daily. There is significant pain around the ulcer but she denies otherwise significant leg pain. Does not wear compression. Mostly sedentary but sleeps in the bed. She feels well otherwise, no chills, fever, nausea, vomiting or change in bowel habit reported. Progress of Wound: Improving. No new concerns at this time. Objective Data Objective Data Vital Signs: Vital Signs Temp Pulse Resp BP O2 Del Method 96.3 F L 83 16 130/63 H Room Air 08/01/23 08:39 08/01/23 08:39 08/01/23 08:39 08/01/23 08:39 08/01/23 08:39 Oxygen Delivery Method Room Air Lab / Micro Data Micro: Microbiology 07/18/23 09:35 Wound - Ankle Gram Stain - Final 07/18/23 09:35 Wound - Ankle Wound Culture - Final Meth. resistant Staph. aureus 07/18/23 09:35 Wound - Ankle Anaerobic Culture - Final No anaerobic bacteria isolated. Charges/Coding Procedures Integumentary 111xxx-113xx: [id number] Carla subq tissue 20 sq cm/< Physical Exam Const alert, oriented x3 and no apparent distress General Appearance: cooperative, comfortable and well kempt HEENT normocephalic and head/scalp atraumatic Eyes EOMs intact bilaterally General Eye: normal appearance of both eyes Neck full ROM and supple General: normal visual inspection Resp normal respiratory effort Effort and Inspection: able to speak in complete sentences Extremity General Extremity: edema Skin Wounds: wounds noted Neuro oriented x3, CN's II-XII intact bilaterally and moves all extremities Psych mental status grossly normal, thought process normal, cooperative and affect normal Debridement Note Debridement Note Wound debrided: Right lateral foot/ankle Type of Debridement: Excisional debridement Anesthesia Used: 5% Lidocaine Gel Depth: Down to and including healthy tissue and in the subcutaneous layer Percentage of wound debrided: 100 Instrument Used: 5mm curette Tissue Removed: Slough and devitalized tissue Severity: Fat Layer Exposed Amount of bleeding with debridement: Mild Bleeding Controlled with: Pressure Patient tolerated procedure: Patient tolerated procedure well Post-Debridement Measurements and Additional Note: Post-Debridement Measurements/Treatment - Nurse 1 - General Ulcer Assessment Start: 07/18/23 08:50 Freq: Status: Active Protocol: CLOVIS Activity Type Activity Date Activity User E-sign Co-sign Detail Recorded Client Recorded Date Recorded By Document 07/18/23 08:50 [employer] 07/18/23 08:58 Refund Exchange Document 07/25/23 08:49 [employer] 07/25/23 08:56 [employer] Exchange Document 08/01/23 08:39 [employer] Desktop 08/01/23 08:49 [employer] 07/18/23 07/25/23 08/01/23 08:50 08:49 08:39 - Today's Visit Information Type of service Follow-up Visit Follow-up Visit 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 (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 (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 ) ) ) Arrival Mode Wheelchair Wheelchair Wheelchair Transfer Assistance None None None Patient Identification Verified (Name & Yes Yes Yes ) Patient Requires Transmission-Based No No No Precautions Vital Signs Temperature (97.8 F-99.1 F) 97.1 F L 97 F L 96.3 F L Temperature Source Temporal Temporal Temporal Pulse Rate (60-100) 81 80 83 Pulse Location Monitor Monitor Monitor Respiratory Rate (12-18) 16 16 16 Respiratory rate source Observation Observation Observation Oxygen Delivery Method Room Air Room Air Room Air Blood Pressure (90/60-120/80) 127/57 H 106/55 L 130/63 H Blood Pressure Mean (mm Hg) 80 72 85 Source Monitor Monitor Monitor Position Sitting Sitting Sitting Blood Pressure Location Right Arm Left Arm Right Arm History Since Last Visit- (Skip if this is Patient's initial visit) Have you changed medications since your No No No last visit? Any new allergies or adverse reactions No No No Had a fall/change in ADL's that may No No No increase risk of falls Signs or symptoms of abuse and/or No No No neglect since last visit Have you been in the hospital since your No No No last visit? Has dressing in place as prescribed Yes Yes Yes Has compression in place as prescribed Yes Yes Yes Has offloadiing in place as prescribed N/A N/A N/A Experienced any changes in pain level or No No No management Left Footwear Regular Shoe Regular Shoe Regular Shoe Right Footwear Regular Shoe Regular Shoe Regular Shoe Pain Scale: 0-10 Numeric Is Patient Pain Free? Yes Yes Yes WC - Nurse 1 - General Ulcer Measurement Start: 07/18/23 08:50 Freq: Status: Active Protocol: Activity Type Activity Date Activity User E-sign Co-sign Detail Recorded Client Recorded Date Recorded By Document 07/18/23 08:50 [employer] Desktop 07/18/23 08:58 Tilt Document 07/25/23 08:49 [employer] Desktop 07/25/23 08:56 Ref[employer] Document 08/01/23 08:39 [employer] Desktop 08/01/23 08:49 Tilt 07/18/23 07/25/23 08/01/23 08:50 08:49 08:39 Wound Center Nurse 1 #1 R Lat Ankle -Combined with other wound No No No -Current Size (cm) - Length 1.3 1.2 1 -Current Size (cm) - Width 0.7 0.7 0.4 -Current Size (cm) - Depth 0.2 0.1 0.2 -Total Square Cm 0.91 0.84 0.4 -Date of Last Picture (Recall this 07/18/23 08/01/23 field) -Photo Taken Yes Yes -Epithelialization None Present Small 1-33% -Tunneling No No No -Undermining/Tunneling No No No -Circular Undermining No No No -Exudate Amt Medium Medium Medium -Exudate Type Serosanguineous Serosanguineous Serosanguineous -Wound Margin Thickened Distinct, Thickened Outline Attached -Granulation Amt Medium (34-66%) Large (67-100%) Medium (34-66%) -Granulation Quality Red Red Pale,Red -Slough/Fibrin Yes Yes Yes -Necrosis Amt Medium (34-66%) Small (1-33%) Small (1-33%) -Necrotic Tissue Type Adherent Slough Adherent Slough Adherent Slough -Texture (Lori-wound Skin Appearance) Assessed, Assessed, Assessed,Callus Scarring Scarring -Moisture (Lori-wound Skin Appearance) Assessed, Assessed, Assessed, Maceration,Dry/ Maceration,Dry/ Maceration,Dry/ Scaly Scaly Scaly -Color (Lori-wound Skin Appearance) Assessed Assessed, Assessed Erythema -Temperature (Lori-wound Skin No Abnormality No Abnormality No Abnormality Appearance) (Pt Warm) (Pt Warm) (Pt Warm) -Tenderness on Palpation (Lori-wound No No No Skin Appearance) -Ulcer Cleansing Soap and Water Soap and Water Soap and Water -Foul Odor after Cleansing No No No -Anesthetic Used 5% Lidocaine 5% Lidocaine 5% Lidocaine Gel Gel Gel Lower Limb Edema Present Yes Right Calf (cm) 34.5 34.8 34.7 Right Ankle (cm) 21.3 21.1 21.5 WC - Nurse 2 - General Ulcer CM Notes Start: 07/18/23 08:50 Freq: Status: Active Protocol: Activity Type Activity Date Activity User E-sign Co-sign Detail Recorded Client Recorded Date Recorded By Document 07/18/23 09:32 Desktop 07/18/23 09:38 Document 07/25/23 09:05 Desktop 07/25/23 09:11 Document 08/01/23 09:52 [facility] Desktop 08/01/23 09:57 [facility] 07/18/23 07/25/23 08/01/23 09:32 09:05 09:52 Wound Center Nurse 2 #1 R Lat Ankle -Time 09:35 09:05 09:52 -Correct Patient Yes Yes Yes -Correct Side, Site, Position Yes Yes Yes -Correct Procedure Yes Yes Yes -Procedure Performed Yes Yes Yes -Type of Procedure Debridement Debridement Debridement -Clinical Debridement Subcutaneous Subcutaneous Subcutaneous -Tissue Removed Subcutaneous Subcutaneous Subcutaneous -Post Debridement (cm) - Length 1.3 0.9 -Post Debridement (cm) - Width 0.9 0.8 -Post Debridement (cm) - Depth 0.1 0.1 -Total Square (Post) (cm) 1.17 0.72 -Area of Debridement (cm) - Length 1.3 0.9 -Area of Debridement (cm) - Width 0.9 0.8 -Total Square (Area) (cm) 1.17 0.72 -Tunneling No No No -Undermining/Tunneling No No No -Circular Undermining No No No -Wound/Ulcer Outcome Not Healed Not Healed Not Healed -Ulcer Cleansing Rinsed/ Rinsed/ Rinsed/ Irrigated with Irrigated with Irrigated with Saline Saline Saline -Foul Odor after Cleansing No No No -Bioengineered Tissue No No No -Bleeding Controlled with Pressure Pressure,Silver NA Nitrate -Treatment Response Procedure Procedure Tolerated Well Tolerated Well -Debridement - Subq, 1st 20sq cm Yes Yes Yes Pain Scale: 0-10 Numeric Is Patient Pain Free? Yes Yes Yes - Nurse 3 - General Ulcer D/C NN Start: 07/18/23 08:50 Freq: Status: Active Protocol: Activity Type Activity Date Activity User E-sign Co-sign Detail Recorded Client Recorded Date Recorded By Document 07/18/23 09:48 Desktop 07/18/23 09:50 Document 07/25/23 09:22 Desktop 07/25/23 09:23 Document 08/01/23 10:06 [facility] Desktop 08/01/23 10:07 [facility] 07/18/23 07/25/23 08/01/23 09:48 09:22 10:06 Wound Care Center Nurse 3 #1 R Lat Ankle -Ulcer Cleansing Not Cleansed Not Cleansed Rinsed/ Irrigated with Saline -Foul Odor after Cleansing No No No -Primary Dressing Applied Mepilex Border, Aquacel Extra, Aquacel Extra, Promogran Mepilex Border, Mepilex Border, Promogran Promogran -Other Dressing bactroban -Other Covering drsg per rb rn -Aquacel Extra 1 1 -Mepilex Border 1 1 1 -Promogran 1 1 1 Right -Lotion applied to leg before Yes Yes Yes compression wrap -Multi-Layered Wrap Application Multi-Layer Multi-Layer Multi-Layer Comp - Right ($ Comp - Right ($ Comp - Right ($ ) ) ) -Other extra sent with applied per rb patient rn Treatment Response Procedure Tolerated Well Pain Scale: 0-10 Numeric Is Patient Pain Free? Yes Yes Yes Teaching: Wound Center Eliminating Foot Pressure -Person Taught Patient Patient -Teaching Method Discussion Discussion -Response to teaching Verbalize Verbalize understanding understanding Dressing Your Wound -Person Taught Patient Patient -Teaching Method Discussion Discussion -Response to teaching Verbalize Verbalize understanding understanding WC - Visit Discharge Discharge Condition Stable Stable Stable Ambulatory Status Wheelchair Wheelchair Wheelchair Transportation Private Auto Private Auto ecf transport Medication Reconcilliation completed & Yes Yes provided to patient/care provider Clinical Summary of Care Provided Yes Yes Facility Type [facility] Care Facility Assessment/Plan Assessment/Plan (1) 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: CODE(S): L97.312 - Non-pressure chronic ulcer of right ankle with fat layer exposed (2) Insulin dependent diabetes mellitus: (3) Tobacco abuse: CODE(S): Z72.0 - Tobacco use PLAN: Plan Debridement done as documented above, procedure was well-tolerated. Some improvement noted. Continue Promogran, mupirocin and foam dressing. Continue 3Mfor edema management. Change on Saturday at facility. Optimal protein intake. Continue other chronic wound care management and off loading. Her questions were answered and she was advised to call with any further questions or concerns. Follow up in 1 week. This note was generated with [employer] dictation software. It may contain incorrectwords, spelling, and punctuation that were not noted in checking the note beforesigning. 08/01/23 8659 <Electronically signed by Chilango Laughlin MD> Cosigner Signature (if applicable): CC: ~ Signed [facility] Work Phone: [phone] 355-389501-11-2024 Progress note Author Chilango Laughlin [facility] July 25, 2023 10:31am Note Date/Time July 25, 2023 1 0:31am [facility] [address] [place] [id number] Progress Note - Wound Care 07/25/23 1028 MR#: [id number] Acct: [id number] Name: JULIANA MERIDA Rep #:[id number] : 1960 62 From: Chilango joy MD PCP: Bianca Palomares MD Status:REG RCR Location: History of Present Illness Date of Service: 07/25/23 Chief Complaint: Non healing right ankle ulcer History of Wound: Ms. Merida is a 62-year-old who was referred to this facility due to nonhealing right lateral ankle ulcer. Noted a year ago, started out as abullae and subsequently opened up. She states that over the years, she has had alginate and collagen dressings done at her facility without any significant improvement. History of diabetes mellitus, she is not sure of her most recent A1c but states that it has ranged from 8-13. Also history of tobacco use, smokes daily. There is significant pain around the ulcer but she denies otherwise significant leg pain. Does not wear compression. Mostly sedentary but sleeps in the bed. She feels well otherwise, no chills, fever, nausea, vomiting or change in bowel habit reported. Progress of Wound: No new concerns at this time. Currently on antibiotics per culture and sensitivity. Objective Data Objective Data Vital Signs: Vital Signs Temp Pulse Resp BP O2 Del Method 97 F L 80 16 106/55 L Room Air 07/25/23 08:49 07/25/23 08:49 07/25/23 08:49 07/25/23 08:49 07/25/23 08:49 Oxygen Delivery Method Room Air Lab / Micro Data Micro: Microbiology 07/18/23 09:35 Wound - Ankle Gram Stain - Final 07/18/23 09:35 Wound - Ankle Wound Culture - Final Meth. resistant Staph. aureus 07/18/23 09:35 Wound - Ankle Anaerobic Culture - Final No anaerobic bacteria isolated. Charges/Coding Procedures Integumentary 111xxx-113xx: 27939 Carla subq tissue 20 sq cm/< Physical Exam Const alert, oriented x3 and no apparent distress General Appearance: cooperative, comfortable and well kempt HEENT normocephalic and head/scalp atraumatic Eyes EOMs intact bilaterally General Eye: normal appearance of both eyes Neck full ROM and supple General: normal visual inspection Resp normal respiratory effort Effort and Inspection: able to speak in complete sentences Extremity General Extremity: edema Skin Wounds: wounds noted Neuro oriented x3, CN's II-XII intact bilaterally and moves all extremities Psych mental status grossly normal, thought process normal, cooperative and affect normal Debridement Note Debridement Note Wound debrided: Right lateral foot/ankle Type of Debridement: Excisional debridement Anesthesia Used: 5% Lidocaine Gel Depth: Down to and including healthy tissue and in the subcutaneous layer Percentage of wound debrided: 100 Instrument Used: 5mm curette Tissue Removed: Slough and devitalized tissue Severity: Fat Layer Exposed Amount of bleeding with debridement: Mild Bleeding Controlled with: Pressure Patient tolerated procedure: Patient tolerated procedure well Post-Debridement Measurements and Additional Note: Post-Debridement Measurements/Treatment [facility] Nurse 1 - General Ulcer Assessment Start: 07/18/23 08:50 Freq: Status: Active Protocol: CLOVIS Activity Type Activity Date Activity User E-sign Co-sign Detail Recorded Client Recorded Date Recorded By Document 07/18/23 08:50 [employer] Desktop 07/18/23 08:58 Refund Exchange Document 07/25/23 08:49 [employer] Desktop 07/25/23 08:56 [employer] 07/18/23 07/25/23 08:50 08:49 - Today's Visit Information Type of service Follow-up Visit 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 (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 ) ) Arrival Mode Wheelchair Wheelchair Transfer Assistance None None Patient Identification Verified (Name & Yes Yes ) Patient Requires Transmission-Based No No Precautions Vital Signs Temperature (97.8 F-99.1 F) 97.1 F L 97 F L Temperature Source Temporal Temporal Pulse Rate (60-100) 81 80 Pulse Location Monitor Monitor Respiratory Rate (12-18) 16 16 Respiratory rate source Observation Observation Oxygen Delivery Method Room Air Room Air Blood Pressure (90/60-120/80) 127/57 H 106/55 L Blood Pressure Mean (mm Hg) 80 72 Source Monitor Monitor Position Sitting Sitting Blood Pressure Location Right Arm Left Arm History Since Last Visit- (Skip if this is Patient's initial visit) Have you changed medications since your No No last visit? Any new allergies or adverse reactions No No Had a fall/change in ADL's that may No No increase risk of falls Signs or symptoms of abuse and/or No No neglect since last visit Have you been in the hospital since your No No last visit? Has dressing in place as prescribed Yes Yes Has compression in place as prescribed Yes Yes Has offloadiing in place as prescribed N/A N/A Experienced any changes in pain level or No No management Left Footwear Regular Shoe Regular Shoe Right Footwear Regular Shoe Regular Shoe Pain Scale: 0-10 Numeric Is Patient Pain Free? Yes Yes WC - Nurse 1 - General Ulcer Measurement Start: 07/18/23 08:50 Freq: Status: Active Protocol: Activity Type Activity Date Activity User E-sign Co-sign Detail Recorded Client Recorded Date Recorded By Document 07/18/23 08:50 BMF Desktop 07/18/23 08:58 BMF Document 07/25/23 08:49 [employer] Desktop 07/25/23 08:56 BMF 07/18/23 07/25/23 08:50 08:49 Wound Center Nurse 1 #1 R Lat Ankle -Combined with other wound No No -Current Size (cm) - Length 1.3 1.2 -Current Size (cm) - Width 0.7 0.7 -Current Size (cm) - Depth 0.2 0.1 -Total Square Cm 0.91 0.84 -Date of Last Picture (Recall this 07/18/23 field) -Photo Taken Yes -Epithelialization None Present -Tunneling No No -Undermining/Tunneling No No -Circular Undermining No No -Exudate Amt Medium Medium -Exudate Type Serosanguineous Serosanguineous -Wound Margin Thickened Distinct, Outline Attached -Granulation Amt Medium (34-66%) Large (67-100%) -Granulation Quality Red Red -Slough/Fibrin Yes Yes -Necrosis Amt Medium (34-66%) Small (1-33%) -Necrotic Tissue Type Adherent Slough Adherent Slough -Texture (Lori-wound Skin Appearance) Assessed, Assessed, Scarring Scarring -Moisture (Lori-wound Skin Appearance) Assessed, Assessed, Maceration,Dry/ Maceration,Dry/ Scaly Scaly -Color (Lori-wound Skin Appearance) Assessed Assessed, Erythema -Temperature (Lori-wound Skin No Abnormality No Abnormality Appearance) (Pt Warm) (Pt Warm) -Tenderness on Palpation (Lori-wound No No Skin Appearance) -Ulcer Cleansing Soap and Water Soap and Water -Foul Odor after Cleansing No No -Anesthetic Used 5% Lidocaine 5% Lidocaine Gel Gel Right Calf (cm) 34.5 34.8 Right Ankle (cm) 21.3 21.1 - Nurse 2 - General Ulcer CM Notes Start: 07/18/23 08:50 Freq: Status: Active Protocol: Activity Type Activity Date Activity User E-sign Co-sign Detail Recorded Client Recorded Date Recorded By Document 07/18/23 09:32 Desktop 07/18/23 09:38 Document 07/25/23 09:05 Desktop 07/25/23 09:11 GM 07/18/23 07/25/23 09:32 09:05 Wound Center Nurse 2 #1 R Lat Ankle -Time 09:35 09:05 -Correct Patient Yes Yes -Correct Side, Site, Position Yes Yes -Correct Procedure Yes Yes -Procedure Performed Yes Yes -Type of Procedure Debridement Debridement -Clinical Debridement Subcutaneous Subcutaneous -Tissue Removed Subcutaneous Subcutaneous -Post Debridement (cm) - Length 1.3 0.9 -Post Debridement (cm) - Width 0.9 0.8 -Post Debridement (cm) - Depth 0.1 0.1 -Total Square (Post) (cm) 1.17 0.72 -Area of Debridement (cm) - Length 1.3 0.9 -Area of Debridement (cm) - Width 0.9 0.8 -Total Square (Area) (cm) 1.17 0.72 -Tunneling No No -Undermining/Tunneling No No -Circular Undermining No No -Wound/Ulcer Outcome Not Healed Not Healed -Ulcer Cleansing Rinsed/ Rinsed/ Irrigated with Irrigated with Saline Saline -Foul Odor after Cleansing No No -Bioengineered Tissue No No -Bleeding Controlled with Pressure Pressure,Silver Nitrate -Treatment Response Procedure Procedure Tolerated Well Tolerated Well -Debridement - Subq, 1st 20sq cm Yes Yes Pain Scale: 0-10 Numeric Is Patient Pain Free? Yes Yes - Nurse 3 - General Ulcer D/C NN Start: 07/18/23 08:50 Freq: Status: Active Protocol: Activity Type Activity Date Activity User E-sign Co-sign Detail Recorded Client Recorded Date Recorded By Document 07/18/23 09:48 Desktop 07/18/23 09:50 GM Document 07/25/23 09:22 Desktop 07/25/23 09:23 07/18/23 07/25/23 09:48 09:22 Wound Care Center Nurse 3 #1 R Lat Ankle -Ulcer Cleansing Not Cleansed Not Cleansed -Foul Odor after Cleansing No No -Primary Dressing Applied Mepilex Border, Aquacel Extra, Promogran Mepilex Border, Promogran -Aquacel Extra 1 -Mepilex Border 1 1 -Promogran 1 1 Right -Lotion applied to leg before Yes Yes compression wrap -Multi-Layered Wrap Application Multi-Layer Multi-Layer Comp - Right ($ Comp - Right ($ ) ) -Other extra sent with patient Pain Scale: 0-10 Numeric Is Patient Pain Free? Yes Yes Teaching: Wound Center Eliminating Foot Pressure -Person Taught Patient Patient -Teaching Method Discussion Discussion -Response to teaching Verbalize Verbalize understanding understanding Dressing Your Wound -Person Taught Patient Patient -Teaching Method Discussion Discussion -Response to teaching Verbalize Verbalize understanding understanding WC - Visit Discharge Discharge Condition Stable Stable Ambulatory Status Wheelchair Wheelchair Transportation Private Auto Private Auto Medication Reconcilliation completed & Yes Yes provided to patient/care provider Clinical Summary of Care Provided Yes Yes Assessment/Plan Assessment/Plan (1) 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: CODE(S): L97.312 - Non-pressure chronic ulcer of right ankle with fat layer exposed (2) Insulin dependent diabetes mellitus: (3) Tobacco abuse: CODE(S): Z72.0 - Tobacco use PLAN: Plan Debridement done as documented above, procedure was well-tolerated. Some improvement noted. Continue Promogran, mupirocin and foam dressing. Continue 3Mfor edema management. Change on Saturday at facility. Optimal protein intake. Continue other chronic wound care management and off loading. Her questions were answered and she was advised to call with any further questions or concerns. Follow up in 1 week. This note was generated with [employer] dictation software. It may contain incorrectwords, spelling, and punctuation that were not noted in checking the note beforesigning. 07/25/23 1031 <Electronically signed by Chilango Laughlin MD> Cosigner Signature (if applicable): CC: ~ Signed [facility] Work Phone: 1(906) 662-645212-28-2023 Progress note Author Chilango Laughlin [facility] July 11, 2023 9:25am Note Date/Time July 11, 2023 9:21am [facility] [address] [place] [address] Progress Note - Wound Care 07/11/23 0919 MR#: [id number] Acct: [id number] Name: JULIANA MERIDA Rep #:[id number] : 1960 62 From: Chilango joy MD PCP: Bianca Palomares MD Status:REG RCR Location: History of Present Illness Date of Service: 07/11/23 Chief Complaint: Non healing right ankle ulcer History of Wound: Ms. Merida is a 62-year-old who was referred to this facility due to nonhealing right lateral ankle ulcer. Noted a year ago, started out as abullae and subsequently opened up. She states that over the years, she has had alginate and collagen dressings done at her facility without any significant improvement. History of diabetes mellitus, she is not sure of her most recent A1c but states that it has ranged from 8-13. Also history of tobacco use, smokes daily. There is significant pain around the ulcer but she denies otherwise significant leg pain. Does not wear compression. Mostly sedentary but sleeps in the bed. She feels well otherwise, no chills, fever, nausea, vomiting or change in bowel habit reported. Progress of Wound: No new concerns at this time. Minimal change.. Had dressing on for 2 weeks priorto a recent nurse visit due to lack of supplies at her facility. Objective Data Objective Data Vital Signs: Vital Signs Temp Pulse Resp BP O2 Del Method 96.3 F L 81 18 114/62 Room Air 07/11/23 08:53 07/11/23 08:53 07/11/23 08:53 07/11/23 08:53 07/04/23 08:52 Oxygen Delivery Method Room Air Charges/Coding Procedures Integumentary 111xxx-113xx: 41457 Carla subq tissue 20 sq cm/< Physical Exam Const alert, oriented x3 and no apparent distress General Appearance: cooperative, comfortable and well kempt HEENT normocephalic and head/scalp atraumatic Eyes EOMs intact bilaterally General Eye: normal appearance of both eyes Neck full ROM and supple General: normal visual inspection Resp normal respiratory effort Effort and Inspection: able to speak in complete sentences Extremity General Extremity: edema Skin Wounds: wounds noted Neuro oriented x3, CN's II-XII intact bilaterally and moves all extremities Psych mental status grossly normal, thought process normal, cooperative and affect normal Debridement Note Debridement Note Wound debrided: Right lateral foot/ankle Type of Debridement: Excisional debridement Anesthesia Used: 5% Lidocaine Gel Depth: Down to and including healthy tissue and in the subcutaneous layer Percentage of wound debrided: 100 Instrument Used: 5mm curette Tissue Removed: Slough and devitalized tissue Severity: Fat Layer Exposed Amount of bleeding with debridement: Mild Bleeding Controlled with: Pressure Patient tolerated procedure: Patient tolerated procedure well Post-Debridement Measurements and Additional Note: Post-Debridement Measurements/Treatment - Nurse 1 - General Ulcer Assessment Start: 07/04/23 08:52 Freq: Status: Active Protocol: CLOVIS Activity Type Activity Date Activity User E-sign Co-sign Detail Recorded Client Recorded Date Recorded By Document 07/04/23 08:52 BM Desktop 07/04/23 09:03 BMF Document 07/11/23 08:53 DL Desktop 07/11/23 09:03 DL 07/04/23 07/11/23 08:52 08:53 - Today's Visit Information Type of service Nurse-only Follow-up Visit 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 ) Arrival Mode Wheelchair Wheelchair Transfer Assistance None Patient Identification Verified (Name & Yes Yes ) Patient Requires Transmission-Based No No Precautions Finger Stick Blood Sugar(mg/dl) (if 116 indicated): Blood Sugar Stated by Patient Vital Signs Temperature (97.8 F-99.1 F) 96.1 F L 96.3 F L Temperature Source Temporal Temporal Pulse Rate (60-100) 70 81 Pulse Location Monitor Monitor Respiratory Rate (12-18) 16 18 Respiratory rate source Observation Observation Oxygen Delivery Method Room Air Blood Pressure (90/60-120/80) 127/68 H 114/62 Blood Pressure Mean (mm Hg) 87 79 Source Monitor Monitor Position Sitting Blood Pressure Location Right Arm History Since Last Visit- (Skip if this is Patient's initial visit) Have you changed medications since your No No last visit? Any new allergies or adverse reactions No No Had a fall/change in ADL's that may No No increase risk of falls Signs or symptoms of abuse and/or No No neglect since last visit Have you been in the hospital since your No No last visit? Has dressing in place as prescribed Yes Yes Has compression in place as prescribed Yes Yes Has offloadiing in place as prescribed N/A Yes Experienced any changes in pain level or No No management Left Footwear Regular Shoe Regular Shoe Right Footwear Regular Shoe Regular Shoe Pain Scale: 0-10 Numeric Is Patient Pain Free? Yes Yes WC - Nurse 1 - General Ulcer Measurement Start: 07/04/23 08:52 Freq: Status: Active Protocol: Activity Type Activity Date Activity User E-sign Co-sign Detail Recorded Client Recorded Date Recorded By Document 07/04/23 08:52 BMF Desktop 07/04/23 09:03 BMF Document 07/11/23 08:53 DL Desktop 07/11/23 09:03 DL 07/04/23 07/11/23 08:52 08:53 Wound Center Nurse 1 #1 R Lat Ankle -Combined with other wound No -Current Size (cm) - Length 1.4 1 -Current Size (cm) - Width 0.8 1 -Current Size (cm) - Depth 0.4 0.2 -Total Square Cm 1.12 1 -Photo Taken Yes -Exudate Amt Medium Small -Exudate Type Serosanguineous Serosanguineous -Wound Margin Distinct, Thickened Outline Attached -Granulation Amt Large (67-100%) Small (1-33%) -Granulation Quality [place] -Slough/Fibrin Yes -Necrosis Amt Small (1-33%) Medium (34-66%) -Necrotic Tissue Type Adherent Slough Adherent Slough -Texture (Lori-wound Skin Appearance) Assessed Callus,Scarring -Moisture (Lori-wound Skin Appearance) Assessed, Maceration Maceration,Dry/ Scaly -Color (Lori-wound Skin Appearance) Assessed Hemosiderin Staining -Temperature (Lori-wound Skin No Abnormality No Abnormality Appearance) (Pt Warm) (Pt Warm) -Tenderness on Palpation (Lori-wound No No Skin Appearance) -Ulcer Cleansing Soap and Water Soap and Water -Foul Odor after Cleansing No No -Anesthetic Used 5% Lidocaine Gel -Wound Comment(s) pt missed a few States More appts d/t painful last covid. current few days to [facility] she's touch wearing is dated for 06/21. [facility] has not changed it since then and had not called for new orders. Right Calf (cm) 35 34 Right Ankle (cm) 21.5 21.5 WC - Nurse 2 - General Ulcer CM Notes Start: 07/04/23 08:52 Freq: Status: Active Protocol: Activity Type Activity Date Activity User E-sign Co-sign Detail Recorded Client Recorded Date Recorded By Document 07/11/23 09:15 GM Desktop 07/11/23 09:18 07/11/23 09:15 Wound Center Nurse 2 #1 R Lat Ankle -Time 09:15 -Correct Patient Yes -Correct Side, Site, Position Yes -Correct Procedure Yes -Procedure Performed Yes -Type of Procedure Debridement -Clinical Debridement Subcutaneous -Tissue Removed Subcutaneous -Post Debridement (cm) - Length 1.0 -Post Debridement (cm) - Width 1.0 -Post Debridement (cm) - Depth 0.1 -Total Square (Post) (cm) 1.00 -Area of Debridement (cm) - Length 1.0 -Area of Debridement (cm) - Width 1.0 -Total Square (Area) (cm) 1.00 -Tunneling No -Undermining/Tunneling No -Circular Undermining No -Wound/Ulcer Outcome Not Healed -Ulcer Cleansing Rinsed/ Irrigated with Saline -Foul Odor after Cleansing No -Bioengineered Tissue No -Bleeding Controlled with Pressure -Treatment Response Procedure Tolerated Well -Debridement - Subq, 1st 20sq cm Yes Pain Scale: 0-10 Numeric Is Patient Pain Free? Yes WC - Nurse 3 - General Ulcer D/C NN Start: 07/04/23 08:52 Freq: Status: Active Protocol: Activity Type Activity Date Activity User E-sign Co-sign Detail Recorded Client Recorded Date Recorded By Document 07/04/23 08:52 BMF Desktop 07/04/23 09:03 BMF Edit Result 07/04/23 08:52 BMF (1) [id number] 07/05/23 06:38 PL (1) Left - Multi-Layered Wrap Application => Multi-Layer Comp - => Left ($) 07/04/23 08:52 Vital Signs Temperature (97.8 F-99.1 F) 96.1 F L Temperature Source Temporal Pulse Rate (60-100) 70 Pulse Location Monitor Respiratory Rate (12-18) 16 Respiratory rate source Observation Oxygen Delivery Method Room Air Blood Pressure (90/60-120/80) 127/68 H Blood Pressure Mean (mm Hg) 87 Source Monitor Position Sitting Blood Pressure Location Right Arm Pain Scale: 0-10 Numeric Is Patient Pain Free? Yes Wound Care Center Nurse 3 Left -Multi-Layered Wrap Application Multi-Layer Comp - Left ($) Assessment/Plan Assessment/Plan (1) 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: CODE(S): L97.312 - Non-pressure chronic ulcer of right ankle with fat layer exposed (2) Insulin dependent diabetes mellitus: (3) Tobacco abuse: CODE(S): Z72.0 - Tobacco use PLAN: Plan Debridement done as documented above, procedure was well-tolerated. Minimal improvement. As above, had concerns with dressing changes at her facility. Continue Promogran, mupirocin and foam dressing. Continue 3M for edema management. Change on Saturday at facility. Optimal protein intake. Continue other chronic wound care management and off loading. Her questions were answered and she was advised to call with any further questions or concerns. Follow up in 1 week. This note was generated with [employer] dictation software. It may contain incorrectwords, spelling, and punctuation that were not noted in checking the note beforesigning. 07/11/23 0925 <Electronically signed by Chilango Laughlin MD> Cosigner Signature (if applicable): CC: ~ Signed [facility] Work Phone: 1(325) 749-872011-30-2023 Progress note Author Chilango Laughlin [facility] June 13, 2023 10:53am Note Date/Time June 13, 2023 10:53am [facility] [address] [place] [id number] Progress Note - Wound Care 06/13/23 1048 MR#: [id number] Acct: [id number] Name: JULIANA MERIDA Rep #:[id number] : 1960 62 From: Chilango joy MD PCP: Bianca Palomares MD Status:REG RCR Location: History of Present Illness Date of Service: 06/13/23 Chief Complaint: Non healing right ankle ulcer History of Wound: Ms. Merida is a 62-year-old who was referred to this facility due to nonhealing right lateral ankle ulcer. Noted a year ago, started out as abullae and subsequently opened up. She states that over the years, she has had alginate and collagen dressings done at her facility without any significant improvement. History of diabetes mellitus, she is not sure of her most recent A1c but states that it has ranged from 8-13. Also history of tobacco use, smokes daily. There is significant pain around the ulcer but she denies otherwise significant leg pain. Does not wear compression. Mostly sedentary but sleeps in the bed. She feels well otherwise, no chills, fever, nausea, vomiting or change in bowel habit reported. Progress of Wound: No new concerns at this time. Has been tolerating the 3M wraps well with significant improvement in edema. Some improvement in wound size. Objective Data Objective Data Vital Signs: Vital Signs Temp Pulse Resp BP O2 Del Method 95.6 F L 97 16 142/62 H Room Air 06/13/23 09:52 06/13/23 09:52 06/13/23 09:52 06/13/23 09:52 06/13/23 09:52 Oxygen Delivery Method Room Air Charges/Coding Procedures Integumentary 111xxx-113xx: 10535 Carla subq tissue 20 sq cm/< Physical Exam Const alert, oriented x3 and no apparent distress General Appearance: cooperative, comfortable and well kempt HEENT normocephalic and head/scalp atraumatic Eyes EOMs intact bilaterally General Eye: normal appearance of both eyes Neck full ROM and supple General: normal visual inspection Resp normal respiratory effort Effort and Inspection: able to speak in complete sentences Extremity General Extremity: edema Skin Wounds: wounds noted Neuro oriented x3, CN's II-XII intact bilaterally and moves all extremities Psych mental status grossly normal, thought process normal, cooperative and affect normal Debridement Note Debridement Note Wound debrided: Right lateral foot/ankle Type of Debridement: Excisional debridement Anesthesia Used: 5% Lidocaine Gel Depth: Down to and including healthy tissue and in the subcutaneous layer Percentage of wound debrided: 100 Instrument Used: 5mm curette Tissue Removed: Slough and devitalized tissue Severity: Fat Layer Exposed Amount of bleeding with debridement: Mild Bleeding Controlled with: Pressure Patient tolerated procedure: Patient tolerated procedure well Post-Debridement Measurements and Additional Note: Post-Debridement Measurements/Treatment RUY - Nurse 1 - General Ulcer Assessment Start: 05/16/23 09:08 Freq: Status: Active Protocol: LOWEXT Activity Type Activity Date Activity User E-sign Co-sign Detail Recorded Client Recorded Date Recorded By Document 05/16/23 09:08 JF Laptop 05/16/23 09:15 JF Document 05/23/23 09:50 BMF Desktop 05/23/23 09:56 BMF Document 05/30/23 09:16 DL Desktop 05/30/23 09:30 DL Document 06/13/23 09:52 BMF Desktop 06/13/23 09:57 BMF 05/16/23 05/23/23 05/30/23 09:08 09:50 09:16 - Today's Visit Information Type of service Follow-up Visit Follow-up Visit 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 (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 (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 ) ) ) Arrival Mode Wheelchair Wheelchair Wheelchair Transfer Assistance None None Patient Identification Verified (Name & Yes Yes Yes ) Patient Requires Transmission-Based No No No Precautions Finger Stick Blood Sugar(mg/dl) (if 239 71 indicated): Blood Sugar Stated by Stated by Patient Patient Vital Signs Temperature (97.8 F-99.1 F) 96.2 F L 96 F L 96.5 F L Temperature Source Temporal Temporal Temporal Pulse Rate (60-100) 74 85 67 Pulse Location Monitor Monitor Monitor Respiratory Rate (12-18) 18 16 18 Respiratory rate source Observation Observation Observation Oxygen Delivery Method Room Air Blood Pressure (90/60-120/80) 133/64 H 129/76 H 124/60 H Blood Pressure Mean (mm Hg) 87 93 81 Source Monitor Monitor Monitor Position Semi-Fowlers Sitting Blood Pressure Location Left Arm Right Arm History Since Last Visit- (Skip if this is Patient's initial visit) Have you changed medications since your No No No last visit? Any new allergies or adverse reactions No No No Had a fall/change in ADL's that may No No No increase risk of falls Signs or symptoms of abuse and/or No No No neglect since last visit Have you been in the hospital since your No No No last visit? Has dressing in place as prescribed Yes Yes Yes Has compression in place as prescribed Yes No Yes Has offloadiing in place as prescribed Yes N/A N/A Experienced any changes in pain level or No No Yes management Left Footwear Regular Shoe Regular Shoe Right Footwear Regular Shoe Regular Shoe Pain Scale: 0-10 Numeric Is Patient Pain Free? 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 ) Arrival Mode Wheelchair Transfer Assistance None Patient Identification Verified (Name & Yes ) Patient Requires Transmission-Based No Precautions Finger Stick Blood Sugar(mg/dl) (if indicated): Blood Sugar Vital Signs Temperature (97.8 F-99.1 F) 95.6 F L Temperature Source Temporal Pulse Rate (60-100) 97 Pulse Location Monitor Respiratory Rate (12-18) 16 Respiratory rate source Observation Oxygen Delivery Method Room Air Blood Pressure (90/60-120/80) 142/62 H Blood Pressure Mean (mm Hg) 88 Source Monitor Position Sitting Blood Pressure Location Left Arm History Since Last Visit- (Skip if this is Patient's initial visit) Have you changed medications since your No last visit? Any new allergies or adverse reactions No Had a fall/change in ADL's that may No increase risk of falls Signs or symptoms of abuse and/or No neglect since last visit Have you been in the hospital since your No last visit? Has dressing in place as prescribed Yes Has compression in place as prescribed Yes Has offloadiing in place as prescribed N/A Experienced any changes in pain level or No management Left Footwear Regular Shoe Right Footwear Regular Shoe Pain Scale: 0-10 Numeric Is Patient Pain Free? Yes - Nurse 1 - General Ulcer Measurement Start: 05/16/23 09:08 Freq: Status: Active Protocol: Activity Type Activity Date Activity User E-sign Co-sign Detail Recorded Client Recorded Date Recorded By Document 05/16/23 09:08 Laptop 05/16/23 09:15 Document 05/23/23 09:50 [facility] Desktop 05/23/23 09:56 [facility] Document 05/30/23 09:16 DL Desktop 05/30/23 09:30 DL Document 06/13/23 09:52 [facility] Desktop 06/13/23 09:57 [facility] 05/16/23 05/23/23 05/30/23 09:08 09:50 09:16 Wound Center Nurse 1 #1 R Lat Ankle -Combined with other wound No No -Current Size (cm) - Length 1.3 2 1.4 -Current Size (cm) - Width 0.8 1.3 0.9 -Current Size (cm) - Depth 0.3 0.5 0.2 -Total Square Cm 1.04 2.6 1.26 -Photo Taken No No -Epithelialization Small 1-33% -Tunneling No No -Tunneling Position (O'clock) 3 -Tunneling Distance (cm) 5 -Tunneling Distance #2 (cm) 0.2 -Undermining/Tunneling No No -Circular Undermining No No -Exudate Amt Small Medium Medium -Exudate Type Serosanguineous Serosanguineous Serosanguineous -Wound Margin Flat & Intact Distinct, Distinct, Outline Outline Attached Attached -Granulation Amt Medium (34-66%) Large (67-100%) Small (1-33%) -Granulation Quality Red [place] -Slough/Fibrin Yes No -Necrosis Amt Small (1-33%) None Present (0 Large (67-100%) %) -Necrotic Tissue Type Adherent Slough Adherent Slough -Structure Exposed N/A N/A -Texture (Lori-wound Skin Appearance) Assessed, Assessed, Scarring Localized Edema Scarring -Moisture (Lori-wound Skin Appearance) Assessed,Dry/ Assessed, Maceration Scaly Maceration,Dry/ Scaly -Color (Lori-wound Skin Appearance) Assessed Assessed No Abnormality -Temperature (Lori-wound Skin No Abnormality No Abnormality No Abnormality Appearance) (Pt Warm) (Pt Warm) (Pt Warm) -Tenderness on Palpation (Lori-wound No No No Skin Appearance) -Ulcer Cleansing Rinsed/ Rinsed/ Soap and Water Irrigated with Irrigated with Saline Saline -Foul Odor after Cleansing No No No -Anesthetic Used 5% Lidocaine 5% Lidocaine 5% Lidocaine Gel Gel Gel Lower Limb Edema Present Yes Yes Right Calf (cm) 35.5 30.5 35 Right Ankle (cm) 24.5 18 21 06/13/23 09:52 Wound Center Nurse 1 #1 R Lat Ankle -Combined with other wound No -Current Size (cm) - Length 1.1 -Current Size (cm) - Width 0.7 -Current Size (cm) - Depth 0.2 -Total Square Cm 0.77 -Photo Taken No -Epithelialization Small 1-33% -Tunneling No -Tunneling Position (O'clock) -Tunneling Distance (cm) -Tunneling Distance #2 (cm) -Undermining/Tunneling No -Circular Undermining No -Exudate Amt Medium -Exudate Type Serosanguineous -Wound Margin Distinct, Outline Attached -Granulation Amt Medium (34-66%) -Granulation Quality Red -Slough/Fibrin Yes -Necrosis Amt Medium (34-66%) -Necrotic Tissue Type Adherent Slough -Structure Exposed -Texture (Lori-wound Skin Appearance) Assessed, Scarring -Moisture (Lori-wound Skin Appearance) Assessed,Dry/ Scaly -Color (Lori-wound Skin Appearance) Assessed -Temperature (Lori-wound Skin No Abnormality Appearance) (Pt Warm) -Tenderness on Palpation (Lori-wound No Skin Appearance) -Ulcer Cleansing Soap and Water -Foul Odor after Cleansing No -Anesthetic Used 5% Lidocaine Gel Lower Limb Edema Present Yes Right Calf (cm) 35 Right Ankle (cm) 21.2 WC - Nurse 2 - General Ulcer CM Notes Start: 05/16/23 09:08 Freq: Status: Active Protocol: Activity Type Activity Date Activity User E-sign Co-sign Detail Recorded Client Recorded Date Recorded By Document 05/16/23 09:25 GM Desktop 05/16/23 09:30 GM Document 05/23/23 10:16 GM Desktop 05/23/23 10:21 GM Document 05/30/23 09:52 DL Desktop 05/30/23 09:57 DL Document 06/13/23 10:09 GM Desktop 06/13/23 10:10 GM 05/16/23 05/23/23 05/30/23 09:25 10:16 09:52 Wound Center Nurse 2 #1 R Lat Ankle -Time 09:25 10:17 09:52 -Correct Patient Yes Yes Yes -Correct Side, Site, Position Yes Yes Yes -Correct Procedure Yes Yes Yes -Procedure Performed Yes Yes Yes -Type of Procedure Debridement Debridement Debridement -Clinical Debridement Subcutaneous Subcutaneous Subcutaneous -Tissue Removed Subcutaneous Subcutaneous Subcutaneous -Post Debridement (cm) - Length 1.2 1.3 -Post Debridement (cm) - Width 1 1.3 0.9 -Post Debridement (cm) - Depth 0.2 0.9 0.2 -Total Square (Post) (cm) 1.2 1.17 -Area of Debridement (cm) - Length 1.2 1.3 -Area of Debridement (cm) - Width 1.0 0.9 -Total Square (Area) (cm) 1.20 1.17 -Tunneling No No No -Undermining/Tunneling No No No -Circular Undermining No No No -Wound/Ulcer Outcome Not Healed Not Healed Not Healed -Ulcer Cleansing Rinsed/ Rinsed/ Rinsed/ Irrigated with Irrigated with Irrigated with Saline Saline Saline -Foul Odor after Cleansing No No -Bioengineered Tissue No No -Bleeding Controlled with Pressure Pressure Silver Nitrate -Treatment Response Procedure Procedure Procedure Not Tolerated Well Tolerated Well Tolerated Well -Assistive Device(s) Wheelchair -Debridement - Subq, 1st 20sq cm Yes Yes Yes Pain Scale: 0-10 Numeric Is Patient Pain Free? Yes Yes Yes 06/13/23 10:09 Wound Center Nurse 2 #1 R Lat Ankle -Time 10:09 -Correct Patient Yes -Correct Side, Site, Position Yes -Correct Procedure Yes -Procedure Performed Yes -Type of Procedure Debridement -Clinical Debridement Subcutaneous -Tissue Removed Subcutaneous -Post Debridement (cm) - Length 1.1 -Post Debridement (cm) - Width 1.0 -Post Debridement (cm) - Depth 0.1 -Total Square (Post) (cm) 1.10 -Area of Debridement (cm) - Length 1.1 -Area of Debridement (cm) - Width 1.0 -Total Square (Area) (cm) 1.10 -Tunneling No -Undermining/Tunneling No -Circular Undermining No -Wound/Ulcer Outcome Not Healed -Ulcer Cleansing Rinsed/ Irrigated with Saline -Foul Odor after Cleansing No -Bioengineered Tissue No -Bleeding Controlled with Pressure -Treatment Response Procedure Tolerated Well -Assistive Device(s) -Debridement - Subq, 1st 20sq cm Yes Pain Scale: 0-10 Numeric Is Patient Pain Free? Yes - Nurse 3 - General Ulcer D/C NN Start: 05/16/23 09:08 Freq: Status: Active Protocol: Activity Type Activity Date Activity User E-sign Co-sign Detail Recorded Client Recorded Date Recorded By Document 05/16/23 09:38 KW Desktop 05/16/23 09:39 KW Document 05/23/23 10:36 BMF Desktop 05/23/23 10:37 BMF Edit Result 05/23/23 10:36 F (1) [id number] 05/23/23 11:07 BMF Document 05/30/23 10:04 DL Desktop 05/30/23 10:05 DL Document 06/13/23 10:21 BMF Desktop 06/13/23 10:22 BMF (1) Right - Multi-Layered Wrap Application Multi-Layer Comp - => Multi-Layer Comp - Right ($) => Bilat ($) - Other => applied to right => only , sent extra => for ecf 05/16/23 05/23/23 05/30/23 09:38 10:36 10:04 Wound Care Center Nurse 3 #1 R Lat Ankle -Ulcer Cleansing Soap and Water -Foul Odor after Cleansing No -Primary Dressing Applied Aquacel AG 4x4, Aquacel Extra, Mepilex Border, Mepilex Border Mepilex Border Promogran -Other Dressing bactroban -Other Covering -Aquacel Extra 1 -Aquacel AG 4x4 1 -Mepilex Border 1 1 1 -Promogran 1 [place] -Multi-Layered Wrap Application -Other Right -Multi-Layered Wrap Application Multi-Layer Multi-Layer Multi-Layer Comp - Right ($ Comp - Bilat ($ Comp - Right ($ ) ) ) -Other applied to right only , sent extra for ecf Treatment Response Procedure Tolerated Well Pain Scale: 0-10 Numeric Is Patient Pain Free? Yes Yes Yes WC - Visit Discharge Discharge Condition Stable Stable Ambulatory Status Wheelchair Wheelchair Transportation yossi nicholas ecf Medication Reconcilliation completed & No provided to patient/care provider Clinical Summary of Care Provided Yes Facility Type [facility] Care Facility 06/13/23 10:21 Wound Care Center Nurse 3 #1 R Lat Ankle -Ulcer Cleansing Rinsed/ Irrigated with Saline -Foul Odor after Cleansing No -Primary Dressing Applied Mepilex Border, Promogran -Other Dressing -Other Covering per gm rn -Aquacel Extra -Aquacel AG 4x4 -Mepilex Border 1 -Promogran 0 [place] -Multi-Layered Wrap Application Multi-Layer Comp - Bilat ($ ) -Other only applied to right leg. sent 2 extra for ecf to apply per cm Right -Multi-Layered Wrap Application Multi-Layer Comp - Right ($ ) -Other applied 3m to right only. sent 2 extra for ecf to apply. Treatment Response Pain Scale: 0-10 Numeric Is Patient Pain Free? Yes WC - Visit Discharge Discharge Condition Stable Ambulatory Status Wheelchair Transportation ecf Medication Reconcilliation completed & provided to patient/care provider Clinical Summary of Care Provided Facility Type [facility] Care Facility Assessment/Plan Assessment/Plan (1) 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: CODE(S): L97.312 - Non-pressure chronic ulcer of right ankle with fat layer exposed (2) Insulin dependent diabetes mellitus: (3) Tobacco abuse: CODE(S): Z72.0 - Tobacco use PLAN: Plan Debridement done as documented above, procedure was well-tolerated. Some improvement noted since her last visit. Continue Promogran, mupirocin and foam dressing. Continue 3M for edema management. Change on Saturday at facility. Optimal protein intake. Continue other chronic wound care management and off loading. Her questions were answered and she was advised to call with any further questions or concerns. Follow up in 2 weeks. This note was generated with [employer] software. It may contain incorrectwords, spelling, and punctuation that were not noted in checking the note beforesigning. 06/13/23 1053 <Electronically signed by Chilango Laughlin MD> Cosigner Signature (if applicable): CC: ~ Signed [facility] Work Phone: 1(615) 330-739511-16-2023 Progress note Author Chilango Laughlin [facility] May 30, 2023 10:15am Note Date/Time May 30, 2023 10:15am [facility] [address] [place] [id number] Progress Note - Wound Care 05/30/23 1013 MR#: [id number] Acct: [id number] Name: JULIANA MERIDA YANELI Rep #:[id number] : 1960 62 From: Chilango joy MD PCP: Bianca Palomares MD Status:REG RCR Location: History of Present Illness Date of Service: 05/30/23 Chief Complaint: Non healing right ankle ulcer History of Wound: Ms. Merida is a 62-year-old who was referred to this facility due to nonhealing right lateral ankle ulcer. Noted a year ago, started out as abullae and subsequently opened up. She states that over the years, she has had alginate and collagen dressings done at her facility without any significant improvement. History of diabetes mellitus, she is not sure of her most recent A1c but states that it has ranged from 8-13. Also history of tobacco use, smokes daily. There is significant pain around the ulcer but she denies otherwise significant leg pain. Does not wear compression. Mostly sedentary but sleeps in the bed. She feels well otherwise, no chills, fever, nausea, vomiting or change in bowel habit reported. Progress of Wound: No new concerns at this time. Has been tolerating the 3M wraps well with significant improvement in edema. No significant change in ulcer size. Objective Data Objective Data Vital Signs: Vital Signs Temp Pulse Resp BP O2 Del Method 96.5 F L 67 18 124/60 H Room Air 05/30/23 09:16 05/30/23 09:16 05/30/23 09:16 05/30/23 09:16 05/23/23 09:50 Oxygen Delivery Method Room Air Charges/Coding Procedures Integumentary 111xxx-113xx: 26346 Carla subq tissue 20 sq cm/< Physical Exam Const alert, oriented x3 and no apparent distress General Appearance: cooperative, comfortable and well kempt HEENT normocephalic and head/scalp atraumatic Eyes EOMs intact bilaterally General Eye: normal appearance of both eyes Neck full ROM and supple General: normal visual inspection Resp normal respiratory effort Effort and Inspection: able to speak in complete sentences Extremity General Extremity: edema Skin Wounds: wounds noted Neuro oriented x3, CN's II-XII intact bilaterally and moves all extremities Psych mental status grossly normal, thought process normal, cooperative and affect normal Debridement Note Debridement Note Wound debrided: Right lateral foot/ankle Type of Debridement: Excisional debridement Anesthesia Used: 5% Lidocaine Gel Depth: Down to and including healthy tissue and in the subcutaneous layer Percentage of wound debrided: 100 Instrument Used: 5mm curette Tissue Removed: Slough and devitalized tissue Severity: Fat Layer Exposed Amount of bleeding with debridement: Mild Bleeding Controlled with: Pressure Patient tolerated procedure: Patient tolerated procedure well Post-Debridement Measurements and Additional Note: Post-Debridement Measurements/Treatment RUY - Nurse 1 - General Ulcer Assessment Start: 05/16/23 09:08 Freq: Status: Active Protocol: CLOVIS Activity Type Activity Date Activity User E-sign Co-sign Detail Recorded Client Recorded Date Recorded By Document 05/16/23 09:08 JF Laptop 05/16/23 09:15 JF Document 05/23/23 09:50 BMF Desktop 05/23/23 09:56 BMF Document 05/30/23 09:16 DL Desktop 05/30/23 09:30 DL 05/16/23 05/23/23 05/30/23 09:08 09:50 09:16 - Today's Visit Information Type of service Follow-up Visit Follow-up Visit 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 (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 (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 ) ) ) Arrival Mode Wheelchair Wheelchair Wheelchair Transfer Assistance None None Patient Identification Verified (Name & Yes Yes Yes ) Patient Requires Transmission-Based No No No Precautions Finger Stick Blood Sugar(mg/dl) (if 239 71 indicated): Blood Sugar Stated by Stated by Patient Patient Vital Signs Temperature (97.8 F-99.1 F) 96.2 F L 96 F L 96.5 F L Temperature Source Temporal Temporal Temporal Pulse Rate (60-100) 74 85 67 Pulse Location Monitor Monitor Monitor Respiratory Rate (12-18) 18 16 18 Respiratory rate source Observation Observation Observation Oxygen Delivery Method Room Air Blood Pressure (90/60-120/80) 133/64 H 129/76 H 124/60 H Blood Pressure Mean (mm Hg) 87 93 81 Source Monitor Monitor Monitor Position Semi-Fowlers Sitting Blood Pressure Location Left Arm Right Arm History Since Last Visit- (Skip if this is Patient's initial visit) Have you changed medications since your No No No last visit? Any new allergies or adverse reactions No No No Had a fall/change in ADL's that may No No No increase risk of falls Signs or symptoms of abuse and/or No No No neglect since last visit Have you been in the hospital since your No No No last visit? Has dressing in place as prescribed Yes Yes Yes Has compression in place as prescribed Yes No Yes Has offloadiing in place as prescribed Yes N/A N/A Experienced any changes in pain level or No No Yes management Left Footwear Regular Shoe Regular Shoe Right Footwear Regular Shoe Regular Shoe Pain Scale: 0-10 Numeric Is Patient Pain Free? Yes Yes Yes - Nurse 1 - General Ulcer Measurement Start: 11/02/23 09:08 Freq: Status: Active Protocol: Activity Type Activity Date Activity User E-sign Co-sign Detail Recorded Client Recorded Date Recorded By Document 05/16/23 09:08 JF Laptop 05/16/23 09:15 JF Document 05/23/23 09:50 BMF Desktop 05/23/23 09:56 BM Document 05/30/23 09:16 DL Desktop 05/30/23 09:30 DL 05/16/23 05/23/23 05/30/23 09:08 09:50 09:16 Wound Center Nurse 1 #1 R Lat Ankle -Combined with other wound No No -Current Size (cm) - Length 1.3 2 1.4 -Current Size (cm) - Width 0.8 1.3 0.9 -Current Size (cm) - Depth 0.3 0.5 0.2 -Total Square Cm 1.04 2.6 1.26 -Photo Taken No No -Epithelialization Small 1-33% -Tunneling No No -Tunneling Position (O'clock) 3 -Tunneling Distance (cm) 5 -Tunneling Distance #2 (cm) 0.2 -Undermining/Tunneling No No -Circular Undermining No No -Exudate Amt Small Medium Medium -Exudate Type Serosanguineous Serosanguineous Serosanguineous -Wound Margin Flat & Intact Distinct, Distinct, Outline Outline Attached Attached -Granulation Amt Medium (34-66%) Large (67-100%) Small (1-33%) -Granulation Quality Red Red [place] -Slough/Fibrin Yes No -Necrosis Amt Small (1-33%) None Present (0 Large (67-100%) %) -Necrotic Tissue Type Adherent Slough Adherent Slough -Structure Exposed N/A N/A -Texture (Lori-wound Skin Appearance) Assessed, Assessed, Scarring Localized Edema Scarring -Moisture (Lori-wound Skin Appearance) Assessed,Dry/ Assessed, Maceration Scaly Maceration,Dry/ Scaly -Color (Lori-wound Skin Appearance) Assessed Assessed No Abnormality -Temperature (Lori-wound Skin No Abnormality No Abnormality No Abnormality Appearance) (Pt Warm) (Pt Warm) (Pt Warm) -Tenderness on Palpation (Lori-wound No No No Skin Appearance) -Ulcer Cleansing Rinsed/ Rinsed/ Soap and Water Irrigated with Irrigated with Saline Saline -Foul Odor after Cleansing No No No -Anesthetic Used 5% Lidocaine 5% Lidocaine 5% Lidocaine Gel Gel Gel Lower Limb Edema Present Yes Yes Right Calf (cm) 35.5 30.5 35 Right Ankle (cm) 24.5 18 21 - Nurse 2 - General Ulcer CM Notes Start: 05/16/23 09:08 Freq: Status: Active Protocol: Activity Type Activity Date Activity User E-sign Co-sign Detail Recorded Client Recorded Date Recorded By Document 05/16/23 09:25 GM Desktop 05/16/23 09:30 GM Document 05/23/23 10:16 GM Desktop 05/23/23 10:21 GM Document 05/30/23 09:52 DL Desktop 05/30/23 09:57 DL 05/16/23 05/23/23 05/30/23 09:25 10:16 09:52 Wound Center Nurse 2 #1 R Lat Ankle -Time 09:25 10:17 09:52 -Correct Patient Yes Yes Yes -Correct Side, Site, Position Yes Yes Yes -Correct Procedure Yes Yes Yes -Procedure Performed Yes Yes Yes -Type of Procedure Debridement Debridement Debridement -Clinical Debridement Subcutaneous Subcutaneous Subcutaneous -Tissue Removed Subcutaneous Subcutaneous Subcutaneous -Post Debridement (cm) - Length 1.2 1.3 -Post Debridement (cm) - Width 1 1.3 0.9 -Post Debridement (cm) - Depth 0.2 0.9 0.2 -Total Square (Post) (cm) 1.2 1.17 -Area of Debridement (cm) - Length 1.2 1.3 -Area of Debridement (cm) - Width 1.0 0.9 -Total Square (Area) (cm) 1.20 1.17 -Tunneling No No No -Undermining/Tunneling No No No -Circular Undermining No No No -Wound/Ulcer Outcome Not Healed Not Healed Not Healed -Ulcer Cleansing Rinsed/ Rinsed/ Rinsed/ Irrigated with Irrigated with Irrigated with Saline Saline Saline -Foul Odor after Cleansing No No -Bioengineered Tissue No No -Bleeding Controlled with Pressure Pressure Silver Nitrate -Treatment Response Procedure Procedure Procedure Not Tolerated Well Tolerated Well Tolerated Well -Assistive Device(s) Wheelchair -Debridement - Subq, 1st 20sq cm Yes Yes Yes Pain Scale: 0-10 Numeric Is Patient Pain Free? Yes Yes Yes - Nurse 3 - General Ulcer D/C NN Start: 05/16/23 09:08 Freq: Status: Active Protocol: Activity Type Activity Date Activity User E-sign Co-sign Detail Recorded Client Recorded Date Recorded By Document 05/16/23 09:38 KW Desktop 05/16/23 09:39 KW Document 05/23/23 10:36 BMF Desktop 05/23/23 10:37 BMF Edit Result 05/23/23 10:36 BMF (1) [id number] 05/23/23 11:07 BMF Document 05/30/23 10:04 DL Desktop 05/30/23 10:05 DL (1) Right - Multi-Layered Wrap Application Multi-Layer Comp - => Multi-Layer Comp - Right ($) => Bilat ($) - Other => applied to right => only , sent extra => for ecf 05/16/23 05/23/23 05/30/23 09:38 10:36 10:04 Wound Care Center Nurse 3 #1 R Lat Ankle -Ulcer Cleansing Soap and Water -Foul Odor after Cleansing No -Primary Dressing Applied Aquacel AG 4x4, Aquacel Extra, Mepilex Border, Mepilex Border Mepilex Border Promogran -Other Dressing bactroban -Aquacel Extra 1 -Aquacel AG 4x4 1 -Mepilex Border 1 1 1 -Promogran 1 Right -Multi-Layered Wrap Application Multi-Layer Multi-Layer Multi-Layer Comp - Right ($ Comp - Bilat ($ Comp - Right ($ ) ) ) -Other applied to right only , sent extra for ecf Treatment Response Procedure Tolerated Well Pain Scale: 0-10 Numeric Is Patient Pain Free? 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 As above, no significant change. Switch to Promogran. Continue mupirocin and foam dressing. Continue 3M for edema management. Change on Saturday and at facility.. Optimal protein intake. Continue other chronic wound care management and off loading. Her questions were answered and she was advised to call with any further questions or concerns. Follow up in 2 weeks due to the holiday. This note was generated with [employer] software. It may contain incorrectwords, spelling, and punctuation that were not noted in checking the note beforesigning. 05/30/23 1015 <Electronically signed by Chilango Laughlin MD> Cosigner Signature (if applicable): CC: ~ Signed [facility] Work Phone: [phone]) 667-387911-09-2023 Progress note Author Chilango Laughlin [facility] May 23, 2023 10:23am Note Date/Time May 23, 2023 1 0:23am [facility] [address] [place] [id number] Progress Note - Wound Care 05/23/23 1021 MR#: [id number] Acct: [id number] Name: JULIANA MERIDA YANELI Rep #:[id number] : 1960 62 From: Chilango joy MD PCP: Bianca Palomares MD Status:REG RCR Location: History of Present Illness Date of Service: 05/23/23 Chief Complaint: Non healing right ankle ulcer History of Wound: Ms. Merida is a 62-year-old who was referred to this facility due to nonhealing right lateral ankle ulcer. Noted a year ago, started out as abullae and subsequently opened up. She states that over the years, she has had alginate and collagen dressings done at her facility without any significant improvement. History of diabetes mellitus, she is not sure of her most recent A1c but states that it has ranged from 8-13. Also history of tobacco use, smokes daily. There is significant pain around the ulcer but she denies otherwise significant leg pain. Does not wear compression. Mostly sedentary but sleeps in the bed. She feels well otherwise, no chills, fever, nausea, vomiting or change in bowel habit reported. Progress of Wound: No new concerns at this time. Edema did improve with 3M compression. Objective Data Objective Data Vital Signs: Vital Signs Temp Pulse Resp BP O2 Del Method 96 F L 85 16 129/76 H Room Air 05/23/23 09:50 05/23/23 09:50 05/23/23 09:50 05/23/23 09:50 05/23/23 09:50 Oxygen Delivery Method Room Air Charges/Coding Procedures Integumentary 111xxx-113xx: 84218 Carla subq tissue 20 sq cm/< Physical Exam Const alert, oriented x3 and no apparent distress General Appearance: cooperative, comfortable and well kempt HEENT normocephalic and head/scalp atraumatic Eyes EOMs intact bilaterally General Eye: normal appearance of both eyes Neck full ROM and supple General: normal visual inspection Resp normal respiratory effort Effort and Inspection: able to speak in complete sentences Extremity General Extremity: edema Skin Wounds: wounds noted Neuro oriented x3, CN's II-XII intact bilaterally and moves all extremities Psych mental status grossly normal, thought process normal, cooperative and affect normal Debridement Note Debridement Note Wound debrided: Right lateral foot/ankle Type of Debridement: Excisional debridement Anesthesia Used: 5% Lidocaine Gel Depth: Down to and including healthy tissue and in the subcutaneous layer Percentage of wound debrided: 100 Instrument Used: 5mm curette Tissue Removed: Slough and devitalized tissue Severity: Fat Layer Exposed Amount of bleeding with debridement: Mild Bleeding Controlled with: Pressure Patient tolerated procedure: Patient tolerated procedure well Post-Debridement Measurements and Additional Note: Post-Debridement Measurements/Treatment - Nurse 1 - General Ulcer Assessment Start: 05/16/23 09:08 Freq: Status: Active Protocol: CLOVIS Activity Type Activity Date Activity User E-sign Co-sign Detail Recorded Client Recorded Date Recorded By Document 05/16/23 09:08 Laptop 05/16/23 09:15 Document 05/23/23 09:50 [facility] Desktop 05/23/23 09:56 [facility] 05/16/23 05/23/23 09:08 09:50 - Today's Visit Information Type of service Follow-up Visit 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 (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 ) ) Arrival Mode Wheelchair Wheelchair Transfer Assistance None Patient Identification Verified (Name & Yes Yes ) Patient Requires Transmission-Based No No Precautions Finger Stick Blood Sugar(mg/dl) (if 239 indicated): Blood Sugar Stated by Patient Vital Signs Temperature (97.8 F-99.1 F) 96.2 F L 96 F L Temperature Source Temporal Temporal Pulse Rate (60-100) 74 85 Pulse Location Monitor Monitor Respiratory Rate (12-18) 18 16 Respiratory rate source Observation Observation Oxygen Delivery Method Room Air Blood Pressure (90/60-120/80) 133/64 H 129/76 H Blood Pressure Mean (mm Hg) 87 93 Source Monitor Monitor Position Semi-Fowlers Sitting Blood Pressure Location Left Arm Right Arm History Since Last Visit- (Skip if this is Patient's initial visit) Have you changed medications since your No No last visit? Any new allergies or adverse reactions No No Had a fall/change in ADL's that may No No increase risk of falls Signs or symptoms of abuse and/or No No neglect since last visit Have you been in the hospital since your No No last visit? Has dressing in place as prescribed Yes Yes Has compression in place as prescribed Yes No Has offloadiing in place as prescribed Yes N/A Experienced any changes in pain level or No No management Left Footwear Regular Shoe Regular Shoe Right Footwear Regular Shoe Regular Shoe Pain Scale: 0-10 Numeric Is Patient Pain Free? Yes Yes - Nurse 1 - General Ulcer Measurement Start: 05/16/23 09:08 Freq: Status: Active Protocol: Activity Type Activity Date Activity User E-sign Co-sign Detail Recorded Client Recorded Date Recorded By Document 05/16/23 09:08 Laptop 05/16/23 09:15 Document 05/23/23 09:50 [facility] Desktop 05/23/23 09:56 [facility] 05/16/23 05/23/23 09:08 09:50 Wound Center Nurse 1 #1 R Lat Ankle -Combined with other wound No No -Current Size (cm) - Length 1.3 2 -Current Size (cm) - Width 0.8 1.3 -Current Size (cm) - Depth 0.3 0.5 -Total Square Cm 1.04 2.6 -Photo Taken No No -Epithelialization Small 1-33% -Tunneling No No -Undermining/Tunneling No No -Circular Undermining No No -Exudate Amt Small Medium -Exudate Type Serosanguineous Serosanguineous -Wound Margin Flat & Intact Distinct, Outline Attached -Granulation Amt Medium (34-66%) Large (67-100%) -Granulation Quality Red Red -Slough/Fibrin Yes No -Necrosis Amt Small (1-33%) None Present (0 %) -Necrotic Tissue Type Adherent Slough -Structure Exposed N/A -Texture (Lori-wound Skin Appearance) Assessed, Assessed, Localized Edema Scarring -Moisture (Lori-wound Skin Appearance) Assessed,Dry/ Assessed, Scaly Maceration,Dry/ Scaly -Color (Lori-wound Skin Appearance) Assessed Assessed -Temperature (Lori-wound Skin No Abnormality No Abnormality Appearance) (Pt Warm) (Pt Warm) -Tenderness on Palpation (Lori-wound No No Skin Appearance) -Ulcer Cleansing Rinsed/ Rinsed/ Irrigated with Irrigated with Saline Saline -Foul Odor after Cleansing No No -Anesthetic Used 5% Lidocaine 5% Lidocaine Gel Gel Lower Limb Edema Present Yes Yes Right Calf (cm) 35.5 30.5 Right Ankle (cm) 24.5 18 WC - Nurse 2 - General Ulcer CM Notes Start: 05/16/23 09:08 Freq: Status: Active Protocol: Activity Type Activity Date Activity User E-sign Co-sign Detail Recorded Client Recorded Date Recorded By Document 05/16/23 09:25 Desktop 05/16/23 09:30 Document 05/23/23 10:16 Desktop 05/23/23 10:21 05/16/23 05/23/23 09:25 10:16 Wound Center Nurse 2 #1 R Lat Ankle -Time 09:25 10:17 -Correct Patient Yes Yes -Correct Side, Site, Position Yes Yes -Correct Procedure Yes Yes -Procedure Performed Yes Yes -Type of Procedure Debridement Debridement -Clinical Debridement Subcutaneous Subcutaneous -Tissue Removed Subcutaneous Subcutaneous -Post Debridement (cm) - Length 1.2 -Post Debridement (cm) - Width 1 1.3 -Post Debridement (cm) - Depth 0.2 0.9 -Total Square (Post) (cm) 1.2 -Area of Debridement (cm) - Length 1.2 -Area of Debridement (cm) - Width 1.0 -Total Square (Area) (cm) 1.20 -Tunneling No No -Undermining/Tunneling No No -Circular Undermining No No -Wound/Ulcer Outcome Not Healed Not Healed -Ulcer Cleansing Rinsed/ Rinsed/ Irrigated with Irrigated with Saline Saline -Foul Odor after Cleansing No -Bioengineered Tissue No -Bleeding Controlled with Pressure Pressure -Treatment Response Procedure Procedure Tolerated Well Tolerated Well -Assistive Device(s) Wheelchair -Debridement - Subq, 1st 20sq cm Yes Yes Pain Scale: 0-10 Numeric Is Patient Pain Free? Yes Yes WC - Nurse 3 - General Ulcer D/C NN Start: 05/16/23 09:08 Freq: Status: Active Protocol: Activity Type Activity Date Activity User E-sign Co-sign Detail Recorded Client Recorded Date Recorded By Document 05/16/23 09:38 KW Desktop 05/16/23 09:39 KW 05/16/23 09:38 Wound Care Center Nurse 3 #1 R Lat Ankle -Primary Dressing Applied Aquacel AG 4x4, Mepilex Border -Aquacel AG 4x4 1 -Mepilex Border 1 Right -Multi-Layered Wrap Application Multi-Layer Comp - Right ($ ) Pain Scale: 0-10 Numeric Is Patient Pain Free? Yes WC - Visit Discharge Discharge Condition Stable Ambulatory Status Wheelchair Transportation maryjo-ann uy Medication Reconcilliation completed & No provided to patient/care provider Clinical Summary of Care Provided Yes Assessment/Plan Assessment/Plan (1) 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: CODE(S): L97.312 - Non-pressure chronic ulcer of right ankle with fat layer exposed (2) Insulin dependent diabetes mellitus: (3) Tobacco abuse: CODE(S): Z72.0 - Tobacco use PLAN: Plan Debridement done as documented above, procedure was well-tolerated. Continue Aquacel extra, Mupirocin and foam dressing. Continue 3M for edema management. Change on Saturday and Saturday at Facility. Optimal protein intake. Continue other chronic wound care management and off loading. Her questions were answered and she was advised to call with any further questions or concerns. Follow up in 1 week. This note was generated with [employer] dictation software. It may contain incorrectwords, spelling, and punctuation that were not noted in checking the note beforesigning. 05/23/23 1023 <Electronically signed by Chilango Laughlin MD> Cosigner Signature (if applicable): CC: ~ Signed [facility] Work Phone: 1(608) 398-893011-02-2023 Progress note Author Chilango Laughlin [facility] May 16, 2023 9:37am Note Date/Time May 16, 2023 9 :38am [facility] [address] [place] [address] Progress Note - Wound Care 05/16/23929 MR#: [id number] Acct: [id number] Name: JULIANA MERIDA Rep #:[id number] : 1960 62 From: Chilango joy MD PCP: Bianca Palomares MD Status:REG RCR Location: History of Present Illness Date of Service: 05/16/23 Chief Complaint: Non healing right ankle ulcer History of Wound: Ms. Merida is a 62-year-old who was referred to this facility due to nonhealing right lateral ankle ulcer. Noted a year ago, started out as abullae and subsequently opened up. She states that over the years, she has had alginate and collagen dressings done at her facility without any significant improvement. History of diabetes mellitus, she is not sure of her most recent A1c but states that it has ranged from 8-13. Also history of tobacco use, smokes daily. There is significant pain around the ulcer but she denies otherwise significant leg pain. Does not wear compression. Mostly sedentary but sleeps in the bed. She feels well otherwise, no chills, fever, nausea, vomiting or change in bowel habit reported. Progress of Wound: Presents with more lower extremity edema today. Otherwise, no acute concerns. Objective Data Objective Data Vital Signs: Vital Signs Temp Pulse Resp BP 96.2 F L 74 18 133/64 H 05/16/23 09:08 05/16/23 09:08 05/16/23 09:08 05/16/23 09:08 Charges/Coding Procedures Integumentary 111xxx-113xx: 69787 Carla subq tissue 20 sq cm/< Physical Exam Const alert, oriented x3 and no apparent distress General Appearance: cooperative, comfortable and well kempt HEENT normocephalic and head/scalp atraumatic Eyes EOMs intact bilaterally General Eye: normal appearance of both eyes Neck full ROM and supple General: normal visual inspection Resp normal respiratory effort Effort and Inspection: able to speak in complete sentences Extremity General Extremity: edema Skin Wounds: wounds noted Neuro oriented x3, CN's II-XII intact bilaterally and moves all extremities Psych mental status grossly normal, thought process normal, cooperative and affect normal Debridement Note Debridement Note Wound debrided: Right lateral foot/ankle Type of Debridement: Excisional debridement Anesthesia Used: 5% Lidocaine Gel Depth: Down to and including healthy tissue and in the subcutaneous layer Percentage of wound debrided: 100 Instrument Used: 5mm curette Tissue Removed: Slough and devitalized tissue Severity: Fat Layer Exposed Amount of bleeding with debridement: Mild Bleeding Controlled with: Pressure Patient tolerated procedure: Patient tolerated procedure well Post-Debridement Measurements and Additional Note: Post-Debridement Measurements/Treatment RUY - Nurse 1 - General Ulcer Assessment Start: 05/16/23 09:08 Freq: Status: Active Protocol: CLOVIS Activity Type Activity Date Activity User E-sign Co-sign Detail Recorded Client Recorded Date Recorded By Document 05/16/23 09:08 JANICE Laptop 05/16/23 09:15 JANICE 05/16/23 09:08 RUY - Today's Visit Information Type of service 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 ) Arrival Mode Wheelchair Patient Identification Verified (Name & Yes ) Patient Requires Transmission-Based No Precautions Finger Stick Blood Sugar(mg/dl) (if 239 indicated): Blood Sugar Stated by Patient Vital Signs Temperature (97.8 F-99.1 F) 96.2 F L Temperature Source Temporal Pulse Rate (60-100) 74 Pulse Location Monitor Respiratory Rate (12-18) 18 Respiratory rate source Observation Blood Pressure (90/60-120/80) 133/64 H Blood Pressure Mean (mm Hg) 87 Source Monitor Position Semi-Fowlers Blood Pressure Location Left Arm History Since Last Visit- (Skip if this is Patient's initial visit) Have you changed medications since your No last visit? Any new allergies or adverse reactions No Had a fall/change in ADL's that may No increase risk of falls Signs or symptoms of abuse and/or No neglect since last visit Have you been in the hospital since your No last visit? Has dressing in place as prescribed Yes Has compression in place as prescribed Yes Has offloadiing in place as prescribed Yes Experienced any changes in pain level or No management Left Footwear Regular Shoe Right Footwear Regular Shoe Pain Scale: 0-10 Numeric Is Patient Pain Free? Yes - Nurse 1 - General Ulcer Measurement Start: 05/16/23 09:08 Freq: Status: Active Protocol: Activity Type Activity Date Activity User E-sign Co-sign Detail Recorded Client Recorded Date Recorded By Document 05/16/23 09:08 Laptop 05/16/23 09:15 05/16/23 09:08 Wound Center Nurse 1 #1 R Lat Ankle -Combined with other wound No -Current Size (cm) - Length 1.3 -Current Size (cm) - Width 0.8 -Current Size (cm) - Depth 0.3 -Total Square Cm 1.04 -Photo Taken No -Epithelialization Small 1-33% -Tunneling No -Undermining/Tunneling No -Circular Undermining No -Exudate Amt Small -Exudate Type Serosanguineous -Wound Margin Flat & Intact -Granulation Amt Medium (34-66%) -Granulation Quality Red -Slough/Fibrin Yes -Necrosis Amt Small (1-33%) -Necrotic Tissue Type Adherent Slough -Structure Exposed N/A -Texture (Lori-wound Skin Appearance) Assessed, Localized Edema -Moisture (Lori-wound Skin Appearance) Assessed,Dry/ Scaly -Color (Lori-wound Skin Appearance) Assessed -Temperature (Lori-wound Skin No Abnormality Appearance) (Pt Warm) -Tenderness on Palpation (Lori-wound No Skin Appearance) -Ulcer Cleansing Rinsed/ Irrigated with Saline -Foul Odor after Cleansing No -Anesthetic Used 5% Lidocaine Gel Lower Limb Edema Present Yes Right Calf (cm) 35.5 Right Ankle (cm) 24.5 WC - Nurse 2 - General Ulcer CM Notes Start: 05/16/23 09:08 Freq: Status: Active Protocol: Activity Type Activity Date Activity User E-sign Co-sign Detail Recorded Client Recorded Date Recorded By Document 05/16/23 09:25 Desktop 05/16/23 09:30 05/16/23 09:25 Wound Center Nurse 2 #1 R Lat Ankle -Time 09:25 -Correct Patient Yes -Correct Side, Site, Position Yes -Correct Procedure Yes -Procedure Performed Yes -Type of Procedure Debridement -Clinical Debridement Subcutaneous -Tissue Removed Subcutaneous -Post Debridement (cm) - Length 1.2 -Post Debridement (cm) - Width 1 -Post Debridement (cm) - Depth 0.2 -Total Square (Post) (cm) 1.2 -Area of Debridement (cm) - Length 1.2 -Area of Debridement (cm) - Width 1.0 -Total Square (Area) (cm) 1.20 -Tunneling No -Undermining/Tunneling No -Circular Undermining No -Wound/Ulcer Outcome Not Healed -Ulcer Cleansing Rinsed/ Irrigated with Saline -Foul Odor after Cleansing No -Bleeding Controlled with Pressure -Treatment Response Procedure Tolerated Well -Debridement - Subq, 1st 20sq cm Yes Pain Scale: 0-10 Numeric Is Patient Pain Free? Yes Assessment/Plan Assessment/Plan (1) 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: CODE(S): L97.312 - Non-pressure chronic ulcer of right ankle with fat layer exposed (2) Insulin dependent diabetes mellitus: (3) Tobacco abuse: CODE(S): Z72.0 - Tobacco use PLAN: Plan Debridement done as documented above, procedure was well-tolerated. Minimal improvement but increased lower extremity swelling. Continue Aquacel extra, Mupirocin and foam dressing. Switch to 3M for edema management. Change on Saturday and Saturday at Facility. Optimal protein intake. Continue other chronic wound care management and off loading. Her questions were answered and she wasadvised to call with any further questions or concerns. Follow up in 1 week. This note was generated with [employer] dictation software. It may contain incorrectwords, spelling, and punctuation that were not noted in checking the note beforesigning. 05/16/23 0937 <Electronically signed by Chilango Laughlin MD> Cosigner Signature (if applicable): CC: ~ Signed [facility] Work Phone: 1(104) 941-356410-19-2023 Progress note Author Chilango Laughlin [facility] May 02, 2023 10:11am Note Date/Time May 02, 2023 1 0:11am [facility] [address] [place] [address] Progress Note - Wound Care 05/02/23 1007 MR#: [id number] Acct: [id number] Name: JULIANA MERIDA YANELI Rep #:[id number] : 1960 62 From: Chilango joy MD PCP: Bianca Palomares MD Status:REG RCR Location: History of Present Illness Date of Service: 05/02/23 Chief Complaint: Non healing right ankle ulcer History of Wound: Ms. Merida is a 62-year-old who was referred to this facility due to nonhealing right lateral ankle ulcer. Noted a year ago, started out as abullae and subsequently opened up. She states that over the years, she has had alginate and collagen dressings done at her facility without any significant improvement. History of diabetes mellitus, she is not sure of her most recent A1c but states that it has ranged from 8-13. Also history of tobacco use, smokes daily. There is significant pain around the ulcer but she denies otherwise significant leg pain. Does not wear compression. Sleep sedentary butsleeps in the bed. She feels well otherwise, no chills, fever, nausea, vomitingor change in bowel habit reported. Progress of Wound: Overall stable. No new concerns reported at this time. Objective Data Objective Data Vital Signs: Vital Signs Temp Pulse Resp BP O2 Del Method 96.5 F L 64 16 135/66 H Room Air 05/02/23 09:16 05/02/23 09:16 05/02/23 09:16 05/02/23 09:16 05/02/23 09:16 Oxygen Delivery Method Room Air Charges/Coding Procedures Integumentary 111xxx-113xx: 73125 Carla subq tissue 20 sq cm/< Physical Exam Const alert, oriented x3 and no apparent distress General Appearance: cooperative, comfortable and well kempt HEENT normocephalic and head/scalp atraumatic Eyes EOMs intact bilaterally General Eye: normal appearance of both eyes Neck full ROM and supple General: normal visual inspection Resp normal respiratory effort Effort and Inspection: able to speak in complete sentences Extremity General Extremity: edema Skin Wounds: wounds noted Neuro oriented x3, CN's II-XII intact bilaterally and moves all extremities Psych mental status grossly normal, thought process normal, cooperative and affect normal Debridement Note Debridement Note Wound debrided: Right lateral foot/ankle Type of Debridement: Excisional debridement Anesthesia Used: 5% Lidocaine Gel Depth: Down to and including healthy tissue and in the subcutaneous layer Percentage of wound debrided: 100 Instrument Used: 5mm curette Tissue Removed: Slough and devitalized tissue Severity: Fat Layer Exposed Amount of bleeding with debridement: Mild Bleeding Controlled with: Pressure Patient tolerated procedure: Patient tolerated procedure well Post-Debridement Measurements and Additional Note: Post-Debridement Measurements/Treatment WC - Nurse 1 - General Ulcer Assessment Start: 04/18/23 09:24 Freq: Status: Active Protocol: CLOVIS Activity Type Activity Date Activity User E-sign Co-sign Detail Recorded Client Recorded Date Recorded By Document 04/18/23 09:24 RB Desktop 04/18/23 09:26 RB Document 04/25/23 08:57 BMF Desktop 04/25/23 09:02 BMF Document 05/02/23 09:16 BMF Desktop 05/02/23 09:21 BMF 04/18/23 04/25/23 05/02/23 09:24 08:57 09:16 - Today's Visit Information Type of service Follow-up Visit Follow-up Visit 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 (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 (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 ) ) ) Arrival Mode Wheelchair Wheelchair Wheelchair Transfer Assistance None None None Patient Identification Verified (Name & Yes Yes Yes ) Patient Requires Transmission-Based No No No Precautions Vital Signs Temperature (97.8 F-99.1 F) 96 F L 96.5 F L 96.5 F L Temperature Source Temporal Temporal Temporal Pulse Rate (60-100) 73 74 64 Pulse Location Monitor Monitor Monitor Respiratory Rate (12-18) 18 16 16 Respiratory rate source Observation Observation Observation Oxygen Delivery Method Room Air Room Air Blood Pressure (90/60-120/80) 124/57 H 95/51 L 135/66 H Blood Pressure Mean (mm Hg) 79 65 89 Source Monitor Monitor Monitor Position Semi-Fowlers Sitting Sitting Blood Pressure Location Left Arm Right Arm Right Arm Comment rechk bp left arm 95/50. pt denies sx History Since Last Visit- (Skip if this is Patient's initial visit) Have you changed medications since your No No No last visit? Any new allergies or adverse reactions No No No Had a fall/change in ADL's that may No No No increase risk of falls Signs or symptoms of abuse and/or No No No neglect since last visit Have you been in the hospital since your No No No last visit? Has dressing in place as prescribed Yes Yes Yes Has compression in place as prescribed Yes Yes Yes Has offloadiing in place as prescribed No N/A N/A Experienced any changes in pain level or No No No management Left Footwear Regular Shoe Regular Shoe Right Footwear Regular Shoe Regular Shoe Pain Scale: 0-10 Numeric Is Patient Pain Free? Yes Yes Yes WC - Nurse 1 - General Ulcer Measurement Start: 04/18/23 09:24 Freq: Status: Active Protocol: Activity Type Activity Date Activity User E-sign Co-sign Detail Recorded Client Recorded Date Recorded By Document 04/18/23 09:24 RB Desktop 04/18/23 09:26 RB Document 04/25/23 08:57 BMF Desktop 04/25/23 09:02 BMF Document 05/02/23 09:16 BMF Desktop 05/02/23 09:21 BMF 04/18/23 04/25/23 05/02/23 09:24 08:57 09:16 Wound Center Nurse 1 #1 R Lat Ankle -Combined with other wound No No No -Current Size (cm) - Length 1.7 1.7 1.4 -Current Size (cm) - Width 1.1 1.1 0.9 -Current Size (cm) - Depth 0.2 0.3 0.2 -Total Square Cm 1.87 1.87 1.26 -Photo Taken No No -Epithelialization None Present None Present -Tunneling No No No -Undermining/Tunneling No No No -Circular Undermining No No No -Exudate Amt Medium Medium Medium -Exudate Type Serosanguineous Serosanguineous Serosanguineous -Wound Margin Distinct, Distinct, Thickened Outline Outline Attached Attached -Granulation Amt Medium (34-66%) Small (1-33%) None Present (0 %) -Granulation Quality [place] Red -Slough/Fibrin Yes Yes Yes -Necrosis Amt Medium (34-66%) Large (67-100%) Large (67-100%) -Necrotic Tissue Type Adherent Slough Adherent Slough Adherent Slough -Structure Exposed N/A -Texture (Lori-wound Skin Appearance) Assessed Assessed, Assessed, Scarring Scarring -Moisture (Lori-wound Skin Appearance) Assessed Assessed Assessed,Dry/ Scaly -Color (Lori-wound Skin Appearance) Assessed Assessed Assessed -Temperature (Lori-wound Skin No Abnormality No Abnormality No Abnormality Appearance) (Pt Warm) (Pt Warm) (Pt Warm) -Tenderness on Palpation (Lori-wound No No No Skin Appearance) -Ulcer Cleansing Wound Cleanser Rinsed/ Rinsed/ Irrigated with Irrigated with Saline Saline -Foul Odor after Cleansing No No No -Anesthetic Used 5% Lidocaine 5% Lidocaine 5% Lidocaine Gel Gel Gel Lower Limb Edema Present Yes Right Calf (cm) 36.4 34.8 Right Ankle (cm) 22.7 21.7 WC - Nurse 2 - General Ulcer CM Notes Start: 04/18/23 09:24 Freq: Status: Active Protocol: Activity Type Activity Date Activity User E-sign Co-sign Detail Recorded Client Recorded Date Recorded By Document 04/18/23 09:38 Desktop 04/18/23 09:43 GM Document 04/25/23 09:32 Desktop 04/25/23 09:36 Document 05/02/23 09:31 Laptop 05/02/23 09:33 04/18/23 04/25/23 05/02/23 09:38 09:32 09:31 Wound Center Nurse 2 #1 R Lat Ankle -Time 09:38 09:32 09:31 -Correct Patient Yes Yes Yes -Correct Side, Site, Position Yes Yes Yes -Correct Procedure Yes Yes Yes -Procedure Performed Yes Yes Yes -Type of Procedure Debridement Debridement Debridement -Clinical Debridement Subcutaneous Subcutaneous Subcutaneous -Tissue Removed Subcutaneous Subcutaneous Subcutaneous -Post Debridement (cm) - Length 1.5 1.3 1.3 -Post Debridement (cm) - Width 1.0 1 0.9 -Post Debridement (cm) - Depth 0.2 0.1 0.2 -Total Square (Post) (cm) 1.50 1.3 1.17 -Area of Debridement (cm) - Length 1.5 1.3 1.3 -Area of Debridement (cm) - Width 1.0 1 0.9 -Total Square (Area) (cm) 1.50 1.3 1.17 -Tunneling No No No -Undermining/Tunneling No No No -Circular Undermining No No No -Wound/Ulcer Outcome Not Healed Not Healed Not Healed -Ulcer Cleansing Rinsed/ Rinsed/ Rinsed/ Irrigated with Irrigated with Irrigated with Saline Saline Saline -Foul Odor after Cleansing No No No -Bioengineered Tissue No No -Bleeding Controlled with Pressure Pressure Pressure,Silver Nitrate -Treatment Response Procedure Procedure Procedure Tolerated Well Tolerated Well Tolerated Well -Offloading No -Debridement - Subq, 1st 20sq cm Yes Yes Yes Pain Scale: 0-10 Numeric Is Patient Pain Free? Yes Yes Yes - Nurse 3 - General Ulcer D/C NN Start: 04/18/23 09:24 Freq: Status: Active Protocol: Activity Type Activity Date Activity User E-sign Co-sign Detail Recorded Client Recorded Date Recorded By Document 04/18/23 09:50 Laptop 04/18/23 09:50 Document 04/25/23 09:41 [facility] Desktop 04/25/23 09:42 [facility] Document 05/02/23 09:44 Tilt Desktop 05/02/23 09:45 [facility] 04/18/23 04/25/23 05/02/23 09:50 09:41 09:44 Wound Care Center Nurse 3 #1 R Lat Ankle -Ulcer Cleansing Rinsed/ Rinsed/ Rinsed/ Irrigated with Irrigated with Irrigated with Saline Saline Saline -Foul Odor after Cleansing No No No -Primary Dressing Applied Aquacel Extra, Aquacel Extra, Aquacel Extra, Mepilex Border Mepilex Border Mepilex Border -Other Dressing bactroban bactroban -Aquacel Extra 1 1 1 -Mepilex Border 1 1 1 Right -Tubular Bandage Double Layer Double Layer Double Layer -Size of Tubigrip Used Size D Size D Size D -Size D ($) 2 2 2 Treatment Response Procedure Procedure Tolerated Well Tolerated Well Pain Scale: 0-10 Numeric Is Patient Pain Free? Yes Yes Yes - Visit Discharge Discharge Condition Stable Stable Stable Ambulatory Status Wheelchair Wheelchair Wheelchair Transportation Private [employer] [place] Accompanied by [place] transport Medication Reconcilliation completed & Yes provided to patient/care provider Clinical Summary of Care Provided Yes Facility Type Cableway Operator Care [facility]way Operator Care Facility Facility Assessment/Plan Assessment/Plan (1) 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: CODE(S): L97.312 - Non-pressure chronic ulcer of right ankle with fat layer exposed (2) Insulin dependent diabetes mellitus: (3) Tobacco abuse: CODE(S): Z72.0 - Tobacco use PLAN: Plan Debridement done as documented above, procedure was well-tolerated. Some improvement noted. Continue Aquacel extra, Mupirocin and foam dressing. Change daily. Double layer Tubigrip for edema management. Optimal protein intake. Continue other chronic wound care management and off loading. Her questions were answered and she was advised to call with any further questions or concerns. Follow up in 2 weeks. This note was generated with [employer] dictation software. It may contain incorrectwords, spelling, and punctuation that were not noted in checking the note beforesigning. 05/02/23 1011 <Electronically signed by Chialngo Laughlin MD> Cosigner Signature (if applicable): CC: ~ Signed [facility] Work Phone: 1(239) 167-265010-12-2023 Progress note Author Chilango Laughlin [facility] April 25, 2023 1:18pm Note Date/Time April 25, 2023 1 :18pm [facility] [address] [place] [id number] Progress Note - Wound Care 04/25/23 1317 MR#: [id number] Acct: [id number] Name: JULIANA MERIDA YANELI Rep #:[id number] : 1960 62 From: Chilango joy MD PCP: Bianca Palomares MD Status:REG RCR Location: History of Present Illness Date of Service: 04/25/23 Chief Complaint: Non healing right ankle ulcer History of Wound: Ms. Merida is a 62-year-old who was referred to this facility due to nonhealing right lateral ankle ulcer. Noted a year ago, started out as abullae and subsequently opened up. She states that over the years, she has had alginate and collagen dressings done at her facility without any significant improvement. History of diabetes mellitus, she is not sure of her most recent A1c but states that it has ranged from 8-13. Also history of tobacco use, smokes daily. There is significant pain around the ulcer but she denies otherwise significant leg pain. Does not wear compression. Sleep sedentary butsleeps in the bed. She feels well otherwise, no chills, fever, nausea, vomitingor change in bowel habit reported. Progress of Wound: Overall stable. No new concerns reported at this time. Objective Data Objective Data Vital Signs: Vital Signs Temp Pulse Resp BP O2 Del Method 96.5 F L 74 16 95/51 L Room Air 04/25/23 08:57 04/25/23 08:57 04/25/23 08:57 04/25/23 08:57 04/25/23 08:57 Oxygen Delivery Method Room Air Charges/Coding Procedures Integumentary 111xxx-113xx: 61225 Carla subq tissue 20 sq cm/< Physical Exam Const alert, oriented x3 and no apparent distress General Appearance: cooperative, comfortable and well kempt HEENT normocephalic and head/scalp atraumatic Eyes EOMs intact bilaterally General Eye: normal appearance of both eyes Neck full ROM and supple General: normal visual inspection Resp normal respiratory effort Effort and Inspection: able to speak in complete sentences Extremity General Extremity: edema Skin Wounds: wounds noted Neuro oriented x3, CN's II-XII intact bilaterally and moves all extremities Psych mental status grossly normal, thought process normal, cooperative and affect normal Debridement Note Debridement Note Wound debrided: Right lateral foot/ankle Type of Debridement: Excisional debridement Anesthesia Used: 5% Lidocaine Gel Depth: Down to and including healthy tissue and in the subcutaneous layer Percentage of wound debrided: 100 Instrument Used: 5mm curette Tissue Removed: Slough and devitalized tissue Severity: Fat Layer Exposed Amount of bleeding with debridement: Mild Bleeding Controlled with: Pressure Patient tolerated procedure: Patient tolerated procedure well Post-Debridement Measurements and Additional Note: Post-Debridement Measurements/Treatment - Nurse 1 - General Ulcer Assessment Start: 04/18/23 09:24 Freq: Status: Active Protocol: CLOVIS Activity Type Activity Date Activity User E-sign Co-sign Detail Recorded Client Recorded Date Recorded By Document 04/18/23 09:24 Desktop 04/18/23 09:26 RB Document 04/25/23 08:57 [facility] Desktop 04/25/23 09:02 [facility] 04/18/23 04/25/23 09:24 08:57 - Today's Visit Information Type of service Follow-up Visit 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 (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 ) ) Arrival Mode Wheelchair Wheelchair Transfer Assistance None None Patient Identification Verified (Name & Yes Yes ) Patient Requires Transmission-Based No No Precautions Vital Signs Temperature (97.8 F-99.1 F) 96 F L 96.5 F L Temperature Source Temporal Temporal Pulse Rate (60-100) 73 74 Pulse Location Monitor Monitor Respiratory Rate (12-18) 18 16 Respiratory rate source Observation Observation Oxygen Delivery Method Room Air Blood Pressure (90/60-120/80) 124/57 H 95/51 L Blood Pressure Mean (mm Hg) 79 65 Source Monitor Monitor Position Semi-Fowlers Sitting Blood Pressure Location Left Arm Right Arm Comment rechk bp left arm 95/50. pt denies sx History Since Last Visit- (Skip if this is Patient's initial visit) Have you changed medications since your No No last visit? Any new allergies or adverse reactions No No Had a fall/change in ADL's that may No No increase risk of falls Signs or symptoms of abuse and/or No No neglect since last visit Have you been in the hospital since your No No last visit? Has dressing in place as prescribed Yes Yes Has compression in place as prescribed Yes Yes Has offloadiing in place as prescribed No N/A Experienced any changes in pain level or No No management Left Footwear Regular Shoe Right Footwear Regular Shoe Pain Scale: 0-10 Numeric Is Patient Pain Free? Yes Yes WC - Nurse 1 - General Ulcer Measurement Start: 04/18/23 09:24 Freq: Status: Active Protocol: Activity Type Activity Date Activity User E-sign Co-sign Detail Recorded Client Recorded Date Recorded By Document 04/18/23 09:24 RB Desktop 04/18/23 09:26 RB Document 04/25/23 08:57 [facility] Desktop 04/25/23 09:02 BMF 04/18/23 04/25/23 09:24 08:57 Wound Center Nurse 1 #1 R Lat Ankle -Combined with other wound No No -Current Size (cm) - Length 1.7 1.7 -Current Size (cm) - Width 1.1 1.1 -Current Size (cm) - Depth 0.2 0.3 -Total Square Cm 1.87 1.87 -Photo Taken No -Epithelialization None Present -Tunneling No No -Undermining/Tunneling No No -Circular Undermining No No -Exudate Amt Medium Medium -Exudate Type Serosanguineous Serosanguineous -Wound Margin Distinct, Distinct, Outline Outline Attached Attached -Granulation Amt Medium (34-66%) Small (1-33%) -Granulation Quality [place] Red -Slough/Fibrin Yes Yes -Necrosis Amt Medium (34-66%) Large (67-100%) -Necrotic Tissue Type Adherent Slough Adherent Slough -Structure Exposed N/A -Texture (Lori-wound Skin Appearance) Assessed Assessed, Scarring -Moisture (Lori-wound Skin Appearance) Assessed Assessed -Color (Lori-wound Skin Appearance) Assessed Assessed -Temperature (Lori-wound Skin No Abnormality No Abnormality Appearance) (Pt Warm) (Pt Warm) -Tenderness on Palpation (Lori-wound No No Skin Appearance) -Ulcer Cleansing Wound Cleanser Rinsed/ Irrigated with Saline -Foul Odor after Cleansing No No -Anesthetic Used 5% Lidocaine 5% Lidocaine Gel Gel Lower Limb Edema Present Yes Right Calf (cm) 36.4 Right Ankle (cm) 22.7 WC - Nurse 2 - General Ulcer CM Notes Start: 04/18/23 09:24 Freq: Status: Active Protocol: Activity Type Activity Date Activity User E-sign Co-sign Detail Recorded Client Recorded Date Recorded By Document 04/18/23 09:38 GM Desktop 04/18/23 09:43 GM Document 04/25/23 09:32 GM Desktop 04/25/23 09:36 GM 04/18/23 04/25/23 09:38 09:32 Wound Center Nurse 2 #1 R Lat Ankle -Time 09:38 09:32 -Correct Patient Yes Yes -Correct Side, Site, Position Yes Yes -Correct Procedure Yes Yes -Procedure Performed Yes Yes -Type of Procedure Debridement Debridement -Clinical Debridement Subcutaneous Subcutaneous -Tissue Removed Subcutaneous Subcutaneous -Post Debridement (cm) - Length 1.5 1.3 -Post Debridement (cm) - Width 1.0 1 -Post Debridement (cm) - Depth 0.2 0.1 -Total Square (Post) (cm) 1.50 1.3 -Area of Debridement (cm) - Length 1.5 1.3 -Area of Debridement (cm) - Width 1.0 1 -Total Square (Area) (cm) 1.50 1.3 -Tunneling No No -Undermining/Tunneling No No -Circular Undermining No No -Wound/Ulcer Outcome Not Healed Not Healed -Ulcer Cleansing Rinsed/ Rinsed/ Irrigated with Irrigated with Saline Saline -Foul Odor after Cleansing No No -Bioengineered Tissue No No -Bleeding Controlled with Pressure Pressure -Treatment Response Procedure Procedure Tolerated Well Tolerated Well -Debridement - Subq, 1st 20sq cm Yes Yes Pain Scale: 0-10 Numeric Is Patient Pain Free? Yes Yes WC - Nurse 3 - General Ulcer D/C NN Start: 04/18/23 09:24 Freq: Status: Active Protocol: Activity Type Activity Date Activity User E-sign Co-sign Detail Recorded Client Recorded Date Recorded By Document 04/18/23 09:50 Laptop 04/18/23 09:50 Document 04/25/23 09:41 [facility] Desktop 04/25/23 09:42 [facility] 04/18/23 04/25/23 09:50 09:41 Wound Care Center Nurse 3 #1 R Lat Ankle -Ulcer Cleansing Rinsed/ Rinsed/ Irrigated with Irrigated with Saline Saline -Foul Odor after Cleansing No No -Primary Dressing Applied Aquacel Extra, Aquacel Extra, Mepilex Border Mepilex Border -Other Dressing bactroban -Aquacel Extra 1 1 -Mepilex Border 1 1 Right -Tubular Bandage Double Layer Double Layer -Size of Tubigrip Used Size D Size D -Size D ($) 2 2 Treatment Response Procedure Tolerated Well Pain Scale: 0-10 Numeric Is Patient Pain Free? Yes Yes WC - Visit Discharge Discharge Condition Stable Stable Ambulatory Status Wheelchair Wheelchair Transportation Private Auto Accompanied by [place] transport Medication Reconcilliation completed & Yes provided to patient/care provider Clinical Summary of Care Provided Yes Facility Type [facility] Care Facility Assessment/Plan Assessment/Plan (1) 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: CODE(S): L97.312 - Non-pressure chronic ulcer of right ankle with fat layer exposed (2) Insulin dependent diabetes mellitus: (3) Tobacco abuse: CODE(S): Z72.0 - Tobacco use PLAN: Plan Debridement done as documented above, procedure was well-tolerated. Some improvement noted. Continue Aquacel extra, Mupirocin and foam dressing. Change daily. Double layer Tubigrip for edema management. Optimal protein intake. Continue other chronic wound care management and off loading. Her questions were answered and she was advised to call with any further questions or concerns. Follow up in 1 week. This note was generated with [employer] dictation software. It may contain incorrectwords, spelling, and punctuation that were not noted in checking the note beforesigning. 04/25/23 0429 <Electronically signed by Chilango Laughlin MD> Cosigner Signature (if applicable): CC: ~ Signed [facility] Work Phone: 1(956) 615-372110-05-2023 Progress note Author Chilango Laughlin [facility] April 18, 2023 9:57am Note Date/Time April 18, 2023 9: 57am [facility] [address] [place] [address] Progress Note - Wound Care 04/18/23 0955 MR#: [id number] Acct: [id number] Name: JULIANA MERIDA Rep #:[id number] : 1960 62 From: Chilango joy MD PCP: Bianca Palomares MD Status:REG RCR Location: History of Present Illness Date of Service: 04/18/23 Chief Complaint: Non healing right ankle ulcer History of Wound: Ms. Merida is a 62-year-old who was referred to this facility due to nonhealing right lateral ankle ulcer. Noted a year ago, started out as abullae and subsequently opened up. She states that over the years, she has had alginate and collagen dressings done at her facility without any significant improvement. History of diabetes mellitus, she is not sure of her most recent A1c but states that it has ranged from 8-13. Also history of tobacco use, smokes daily. There is significant pain around the ulcer but she denies otherwise significant leg pain. Does not wear compression. Sleep sedentary butsleeps in the bed. She feels well otherwise, no chills, fever, nausea, vomitingor change in bowel habit reported. Progress of Wound: Overall stable. No new concerns reported at this time. Objective Data Objective Data Vital Signs: Vital Signs Temp Pulse Resp BP 96 F L 73 18 124/57 H 04/18/23 09:24 04/18/23 09:24 04/18/23 09:24 04/18/23 09:24 Charges/Coding Procedures Integumentary 111xxx-113xx: 60748 Carla subq tissue 20 sq cm/< Physical Exam Const alert, oriented x3 and no apparent distress General Appearance: cooperative, comfortable and well kempt HEENT normocephalic and head/scalp atraumatic Eyes EOMs intact bilaterally General Eye: normal appearance of both eyes Neck full ROM and supple General: normal visual inspection Resp normal respiratory effort Effort and Inspection: able to speak in complete sentences Extremity General Extremity: edema Skin Wounds: wounds noted Neuro oriented x3, CN's II-XII intact bilaterally and moves all extremities Psych mental status grossly normal, thought process normal, cooperative and affect normal Debridement Note Debridement Note Wound debrided: Right lateral foot/ankle Type of Debridement: Excisional debridement Anesthesia Used: 5% Lidocaine Gel Depth: Down to and including healthy tissue and in the subcutaneous layer Percentage of wound debrided: 100 Instrument Used: 5mm curette Tissue Removed: Slough and devitalized tissue Severity: Fat Layer Exposed Amount of bleeding with debridement: Mild Bleeding Controlled with: Pressure Patient tolerated procedure: Patient tolerated procedure well Post-Debridement Measurements and Additional Note: Post-Debridement Measurements/Treatment - Nurse 1 - General Ulcer Assessment Start: 04/18/23 09:24 Freq: Status: Active Protocol: CLOVIS Activity Type Activity Date Activity User E-sign Co-sign Detail Recorded Client Recorded Date Recorded By Document 04/18/23 09:24 RB Desktop 04/18/23 09:26 RB 04/18/23 09:24 WC - Today's Visit Information Type of service 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 Any new allergies or adverse reactions No Had a fall/change in ADL's that may No increase risk of falls Signs or symptoms of abuse and/or No neglect since last visit Have you been in the hospital since your No last visit? Has dressing in place as prescribed Yes Has compression in place as prescribed Yes Has offloadiing in place as prescribed No Experienced any changes in pain level or No management Pain Scale: 0-10 Numeric Is Patient Pain Free? Yes - Nurse 1 - General Ulcer Measurement Start: 04/18/23 09:24 Freq: Status: Active Protocol: Activity Type Activity Date Activity User E-sign Co-sign Detail Recorded Client Recorded Date Recorded By Document 04/18/23 09:24 RB Desktop 04/18/23 09:26 RB 04/18/23 09:24 Wound Center Nurse 1 #1 R Lat Ankle -Combined with other wound No -Current Size (cm) - Length 1.7 -Current Size (cm) - Width 1.1 -Current Size (cm) - Depth 0.2 -Total Square Cm 1.87 -Tunneling No -Undermining/Tunneling No -Circular Undermining No -Exudate Amt Medium -Exudate Type Serosanguineous -Wound Margin Distinct, Outline Attached -Granulation Amt Medium (34-66%) -Granulation Quality [place] -Slough/Fibrin Yes -Necrosis Amt Medium (34-66%) -Necrotic Tissue Type Adherent Slough -Structure Exposed N/A -Texture (Lori-wound Skin Appearance) Assessed -Moisture (Lori-wound Skin Appearance) Assessed -Color (Lori-wound Skin Appearance) Assessed -Temperature (Lori-wound Skin No Abnormality Appearance) (Pt Warm) -Tenderness on Palpation (Lori-wound No Skin Appearance) -Ulcer Cleansing Wound Cleanser -Foul Odor after Cleansing No -Anesthetic Used 5% Lidocaine Gel Lower Limb Edema Present Yes Right Calf (cm) 36.4 Right Ankle (cm) 22.7 WC - Nurse 2 - General Ulcer CM Notes Start: 04/18/23 09:24 Freq: Status: Active Protocol: Activity Type Activity Date Activity User E-sign Co-sign Detail Recorded Client Recorded Date Recorded By Document 04/18/23 09:38 Desktop 04/18/23 09:43 04/18/23 09:38 Wound Center Nurse 2 #1 R Lat Ankle -Time 09:38 -Correct Patient Yes -Correct Side, Site, Position Yes -Correct Procedure Yes -Procedure Performed Yes -Type of Procedure Debridement -Clinical Debridement Subcutaneous -Tissue Removed Subcutaneous -Post Debridement (cm) - Length 1.5 -Post Debridement (cm) - Width 1.0 -Post Debridement (cm) - Depth 0.2 -Total Square (Post) (cm) 1.50 -Area of Debridement (cm) - Length 1.5 -Area of Debridement (cm) - Width 1.0 -Total Square (Area) (cm) 1.50 -Tunneling No -Undermining/Tunneling No -Circular Undermining No -Wound/Ulcer Outcome Not Healed -Ulcer Cleansing Rinsed/ Irrigated with Saline -Foul Odor after Cleansing No -Bioengineered Tissue No -Bleeding Controlled with Pressure -Treatment Response Procedure Tolerated Well -Debridement - Subq, 1st 20sq cm Yes Pain Scale: 0-10 Numeric Is Patient Pain Free? Yes - Nurse 3 - General Ulcer D/C NN Start: 04/18/23 09:24 Freq: Status: Active Protocol: Activity Type Activity Date Activity User E-sign Co-sign Detail Recorded Client Recorded Date Recorded By Document 04/18/23 09:50 Laptop 04/18/23 09:50 04/18/23 09:50 Wound Care Center Nurse 3 #1 R Lat Ankle -Ulcer Cleansing Rinsed/ Irrigated with Saline -Foul Odor after Cleansing No -Primary Dressing Applied Aquacel Extra, Mepilex Border -Aquacel Extra 1 -Mepilex Border 1 Right -Tubular Bandage Double Layer -Size of Tubigrip Used Size D -Size D ($) 2 Pain Scale: 0-10 Numeric Is Patient Pain Free? Yes WC - Visit Discharge Discharge Condition Stable Ambulatory Status Wheelchair Transportation Private Auto Accompanied by [facility] transport Medication Reconcilliation completed & Yes provided to patient/care provider Clinical Summary of Care Provided Yes Assessment/Plan Assessment/Plan (1) 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: CODE(S): L97.312 - Non-pressure chronic ulcer of right ankle with fat layer exposed (2) Insulin dependent diabetes mellitus: (3) Tobacco abuse: CODE(S): Z72.0 - Tobacco use PLAN: Plan Debridement done as documented above, procedure was well-tolerated. Some improvement noted. Continue Aquacel extra, Mupirocin and foam dressing. Change daily. Double layer Tubigrip for edema management. Optimal protein intake. Continue other chronic wound care management and off loading. Her questions were answered and she was advised to call with any further questions or concerns. Follow up in 1 week. This note was generated with [employer] software. It may contain incorrectwords, spelling, and punctuation that were not noted in checking the note beforesigning. 04/18/23 0957 <Electronically signed by Chilango Laughlin MD> Cosigner Signature (if applicable): CC: ~ Signed [facility] Work Phone: 1(436) 833-511009-12-2023 Miscellaneous Notes* Telephone Encounter - Layton Goldsmith ApprenticeLori - 03/26/2023 9:44 AM EDT [employer] (Janneth) APPROVED [id number] 03.26.23 - 03.26.24 for 2 visits [facility] Medicare/Portal Lori Traylor Goldsmith Apprentice documented in this [facility]-2023 Miscellaneous Notes* Telephone Encounter - Gianna Grullon - 03/13/2023 2:05 PM EDT Pt was registered but upon check in system was giving error for Medicare AB- tried to run several times and error ; associate tried as well ; found that pt had possible new insurance in November through [facility]. Pt paperwork on her info sheet was same that we had scanned in August. Called nursing facilityshe lives at they were stumped as well, sent me to the manager of business operations who is reviewing it. She isto call me back. Pending documented in this encounterWexner [facility] Center08-23-2023 Miscellaneous Notes* Telephone Encounter - Funmilayo Pope MD - 03/06/2023 3:41 PM EDT ----- Message from Haylee Jules RN sent at 03/06/2023 9:31 AM EDT ----- Please enter new CAM order for Prolia. Current order is >1 yr old. Pt's appt Tuesday 03/13. Thanks Haylee documented in this encounterWexner [facility] Center07-27-2023 Progress note Author Chilango Laughlin [facility] February 07, 2023 11:52am Note Date/Time February 07, 2023 11:3 5am [facility] [address] [place] [address] Progress Note - Wound Care 02/07/23 1135 MR#: [id number] Acct: [id number] Name: JULIANA MERIDA Rep #:[id number] : 1960 62 From: Chilango joy MD PCP: Bianca Palomares MD Status:REG RCR Location: History of Present Illness Date of Service: 02/07/23 Chief Complaint: Non healing right ankle ulcer History of Wound: Ms. Merida is a 62-year-old who was referred to this facility due to nonhealing right lateral ankle ulcer. Noted a year ago, started out as abullae and subsequently opened up. She states that over the years, she has had alginate and collagen dressings done at her facility without any significant improvement. History of diabetes mellitus, she is not sure of her most recent A1c but states that it has ranged from 8-13. Also history of tobacco use, smokes daily. There is significant pain around the ulcer but she denies otherwise significant leg pain. Does not wear compression. Sleep sedentary butsleeps in the bed. She feels well otherwise, no chills, fever, nausea, vomitingor change in bowel habit reported. Progress of Wound: Has had 9 Epifix applications so far. Also seen by Vascular surgery. No acute concerns at this time. Objective Data Objective Data Vital Signs: Vital Signs Temp Pulse Resp BP O2 Del Method 97 F L 72 18 106/55 L Room Air 02/07/23 09:16 02/07/23 09:16 02/07/23 09:16 02/07/23 09:16 01/24/23 09:02 Oxygen Delivery Method Room Air Charges/Coding Procedures Integumentary 150xxx-152xx: 55725 Skin sub graft trnk/arm/leg Physical Exam Const alert, oriented x3 and no apparent distress General Appearance: cooperative, comfortable and well kempt HEENT normocephalic and head/scalp atraumatic Eyes EOMs intact bilaterally General Eye: normal appearance of both eyes Neck full ROM and supple General: normal visual inspection Resp normal respiratory effort Effort and Inspection: able to speak in complete sentences Extremity General Extremity: edema Skin Wounds: wounds noted Neuro oriented x3, CN's II-XII intact bilaterally and moves all extremities Psych mental status grossly normal, thought process normal, cooperative and affect normal Debridement Note Debridement Note Wound debrided: Right lateral foot/ankle Type of Debridement: Excisional debridement Anesthesia Used: 5% Lidocaine Gel Depth: Down to and including healthy tissue and in the subcutaneous layer Percentage of wound debrided: 100 Instrument Used: 3mm curette Tissue Removed: Slough and devitalized tissue Severity: Fat Layer Exposed Amount of bleeding with debridement: Mild Bleeding Controlled with: Pressure Patient tolerated procedure: Patient tolerated procedure well Post-Debridement Measurements and Additional Note: Post-Debridement Measurements/Treatment - Nurse 1 - General Ulcer Assessment Start: 01/17/23 09:50 Freq: Status: Active Protocol: CLOVIS Activity Type Activity Date Activity User E-sign Co-sign Detail Recorded Client Recorded Date Recorded By Document 01/17/23 09:59 [id number] 01/17/23 10:00 JF Document 01/24/23 09:02 KW [id number] 01/24/23 09:20 KW Document 01/31/23 08:45 RB [id number] 01/31/23 08:51 RB Document 02/07/23 09:16 RB [id number] 02/07/23 09:17 RB 01/17/23 01/24/23 01/31/23 09:59 09:02 08:45 - Today's Visit Information Type of service Follow-up Visit Follow-up Visit 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 (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 (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 ) ) ) Arrival Mode Wheelchair Wheelchair Wheelchair Transfer Assistance None Patient Identification Verified (Name & Yes Yes Yes ) Patient Requires Transmission-Based No No No Precautions Finger Stick Blood Sugar(mg/dl) (if 184 indicated): Blood Sugar Stated by Patient Vital Signs Temperature (97.8 F-99.1 F) 96.2 F L 96.5 F L 97.4 F L Temperature Source Temporal Temporal Temporal Pulse Rate (60-100) 63 72 80 Pulse Location Monitor Monitor Monitor Respiratory Rate (12-18) 16 18 18 Respiratory rate source Observation Observation Observation Oxygen Delivery Method Room Air Blood Pressure (90/60-120/80) 102/72 95/46 L 103/50 L Blood Pressure Mean (mm Hg) 82 62 67 Source Monitor Monitor Monitor Position Sitting Semi-Fowlers Semi-Fowlers Blood Pressure Location Right Arm Right Arm Left Arm History Since Last Visit- (Skip if this is Patient's initial visit) Have you changed medications since your No No No last visit? Any new allergies or adverse reactions No No No Had a fall/change in ADL's that may No No No increase risk of falls Signs or symptoms of abuse and/or No No No neglect since last visit Have you been in the hospital since your No No No last visit? Has dressing in place as prescribed Yes Yes Yes Has compression in place as prescribed Yes Yes Yes Has offloadiing in place as prescribed N/A No Experienced any changes in pain level or No No management Left Footwear No Footwear Removable Cast Walker/Walking Boot Right Footwear Slipper Slipper Pain Scale: 0-10 Numeric Is Patient Pain Free? Yes No Yes LLE -Description Dull,Throbbing -Intensity 8 -Duration (hours) Acute -Pain Behavior No Change in Behavior -Alleviating Factors/Interventions None 02/07/23 09:16 WC - Today's Visit Information Type of service 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 ) Arrival Mode Wheelchair Transfer Assistance None Patient Identification Verified (Name & Yes ) Patient Requires Transmission-Based No Precautions Finger Stick Blood Sugar(mg/dl) (if 98 indicated): Blood Sugar Stated by Patient Vital Signs Temperature (97.8 F-99.1 F) 97 F L Temperature Source Temporal Pulse Rate (60-100) 72 Pulse Location Monitor Respiratory Rate (12-18) 18 Respiratory rate source Observation Oxygen Delivery Method Blood Pressure (90/60-120/80) 106/55 L Blood Pressure Mean (mm Hg) 72 Source Monitor Position Semi-Fowlers Blood Pressure Location Left Arm History Since Last Visit- (Skip if this is Patient's initial visit) Have you changed medications since your No last visit? Any new allergies or adverse reactions No Had a fall/change in ADL's that may No increase risk of falls Signs or symptoms of abuse and/or No neglect since last visit Have you been in the hospital since your No last visit? Has dressing in place as prescribed Yes Has compression in place as prescribed No Has offloadiing in place as prescribed No Experienced any changes in pain level or No management Left Footwear Right Footwear Pain Scale: 0-10 Numeric Is Patient Pain Free? Yes LLE -Description -Intensity -Duration (hours) -Pain Behavior -Alleviating Factors/Interventions WC - Nurse 1 - General Ulcer Measurement Start: 01/17/23 09:50 Freq: Status: Active Protocol: Activity Type Activity Date Activity User E-sign Co-sign Detail Recorded Client Recorded Date Recorded By Document 01/17/23 09:59 JF [id number] 01/17/23 10:00 JF Document 01/24/23 09:02 KW [id number] 01/24/23 09:20 KW Document 01/31/23 08:45 RB [id number] 01/31/23 08:51 RB Document 02/07/23 09:16 RB [id number] 02/07/23 09:17 RB 01/17/23 01/24/23 01/31/23 09:59 09:02 08:45 Wound Center Nurse 1 #1 R Lat Ankle -Combined with other wound No No -Current Size (cm) - Length 1.2 1.4 0.9 -Current Size (cm) - Width 0.9 1.0 0.7 -Current Size (cm) - Depth 0.1 0.3 0.2 -Total Square Cm 1.08 1.40 0.63 -Date of Last Picture (Recall this 01/24/23 field) -Photo Taken Yes Yes -Epithelialization Small 1-33% Small 1-33% -Tunneling No -Undermining/Tunneling No -Circular Undermining No -Exudate Amt Small Small Small -Exudate Type Serosanguineous Yellow/Green Serosanguineous -Wound Margin Flat & Intact Distinct, Distinct, Outline Outline Attached Attached -Granulation Amt Medium (34-66%) Small (1-33%) Medium (34-66%) -Granulation Quality Red [place] -Slough/Fibrin Yes -Necrosis Amt Medium (34-66%) Small (1-33%) None Present (0 %) -Necrotic Tissue Type Eschar Adherent Slough -Structure Exposed N/A N/A -Texture (Lori-wound Skin Appearance) Assessed, Assessed Scarring Localized Edema -Moisture (Lori-wound Skin Appearance) Assessed,Dry/ Assessed,Dry/ No Abnormality Scaly Scaly -Color (Lori-wound Skin Appearance) Assessed Assessed Hemosiderin Staining -Temperature (Lori-wound Skin No Abnormality No Abnormality No Abnormality Appearance) (Pt Warm) (Pt Warm) (Pt Warm) -Tenderness on Palpation (Lori-wound No No No Skin Appearance) -Ulcer Cleansing Wound Cleanser Soap and Water Soap and Water -Foul Odor after Cleansing No No No -Anesthetic Used 5% Lidocaine 5% Lidocaine 5% Lidocaine Gel Gel Gel Lower Limb Edema Present Yes Yes Right Calf (cm) 37.7 36.2 36 Right Ankle (cm) 21.2 22.0 21.8 02/07/23 09:16 Wound Center Nurse 1 #1 R Lat Ankle -Combined with other wound No -Current Size (cm) - Length 1 -Current Size (cm) - Width 0.6 -Current Size (cm) - Depth 0.2 -Total Square Cm 0.6 -Date of Last Picture (Recall this field) -Photo Taken -Epithelialization -Tunneling -Undermining/Tunneling No -Circular Undermining No -Exudate Amt Medium -Exudate Type Serosanguineous -Wound Margin Thickened & Rolled Under -Granulation Amt Medium (34-66%) -Granulation Quality Pale -Slough/Fibrin Yes -Necrosis Amt Large (67-100%) -Necrotic Tissue Type Adherent Slough -Structure Exposed N/A -Texture (Lori-wound Skin Appearance) Assessed -Moisture (Lori-wound Skin Appearance) Assessed -Color (Lori-wound Skin Appearance) Hemosiderin Staining -Temperature (Lori-wound Skin No Abnormality Appearance) (Pt Warm) -Tenderness on Palpation (Lori-wound No Skin Appearance) -Ulcer Cleansing Wound Cleanser -Foul Odor after Cleansing No -Anesthetic Used 5% Lidocaine Gel Lower Limb Edema Present Yes Right Calf (cm) 35 Right Ankle (cm) 22.5 WC - Nurse 2 - General Ulcer CM Notes Start: 01/17/23 09:50 Freq: Status: Active Protocol: Activity Type Activity Date Activity User E-sign Co-sign Detail Recorded Client Recorded Date Recorded By Document 01/17/23 10:11 MW [id number] 01/17/23 10:20 MW Document 01/24/23 09:52 MW [id number] 01/24/23 09:54 MW Document 01/31/23 09:28 MW [id number] 01/31/23 09:36 MW Document 02/07/23 10:00 MW [id number] 02/07/23 10:08 MW 01/17/23 01/24/23 01/31/23 10:11 09:52 09:28 Wound Center Nurse 2 #1 R Lat Ankle -Time 10:11 09:45 09:28 -Correct Patient Yes Yes Yes -Correct Side, Site, Position Yes Yes Yes -Correct Procedure Yes Yes Yes -Procedure Performed Yes Yes Yes -Type of Procedure Debridement Debridement Debridement -Clinical Debridement Subcutaneous Subcutaneous Subcutaneous -Tissue Removed Subcutaneous Subcutaneous Subcutaneous -Post Debridement (cm) - Length 1.4 1.3 1.2 -Post Debridement (cm) - Width 0.7 0.8 0.6 -Post Debridement (cm) - Depth 0.2 0.2 0.2 -Total Square (Post) (cm) 0.98 1.04 0.72 -Area of Debridement (cm) - Length 1.4 1.3 1.2 -Area of Debridement (cm) - Width 0.7 0.8 0.6 -Total Square (Area) (cm) 0.98 1.04 0.72 -Tunneling No No No -Undermining/Tunneling No No No -Circular Undermining No No No -Wound/Ulcer Outcome Not Healed Not Healed Not Healed -Ulcer Cleansing Rinsed/ Rinsed/ Rinsed/ Irrigated with Irrigated with Irrigated with Saline Saline Saline -Foul Odor after Cleansing No No No -Bioengineered Tissue Yes Yes Yes -Type of Bioengineered Tissue Epifix 18mm Epifix 18mm Epifix 18mm Disc Disc Disc -Expiration Date 11/13/27 11/13/27 12/14/27 -Product Lot Number [id number] -Percent Used 100 100 100 -Lot number of Saline Used [id number] -Bleeding Controlled with Pressure Pressure Pressure -Treatment Response Procedure Procedure Procedure Tolerated Well Tolerated Well Tolerated Well -Offloading No No No -Debridement - Subq, 1st 20sq cm No No No -Apply Skin Sub - 1st 25 sq cm - Legs 1 1 1 -Apply Skin Sub - each addt'l 25 sq cm - Feet -Epifix 18mm Disc 3 3 3 Pain Scale: 0-10 Numeric Is Patient Pain Free? Yes Yes Yes 02/07/23 10:00 Wound Center Nurse 2 #1 R Lat Ankle -Time 10:01 -Correct Patient Yes -Correct Side, Site, Position Yes -Correct Procedure Yes -Procedure Performed Yes -Type of Procedure Debridement -Clinical Debridement Subcutaneous -Tissue Removed Subcutaneous -Post Debridement (cm) - Length 1.5 -Post Debridement (cm) - Width 1.0 -Post Debridement (cm) - Depth 0.2 -Total Square (Post) (cm) 1.50 -Area of Debridement (cm) - Length 1.5 -Area of Debridement (cm) - Width 1.0 -Total Square (Area) (cm) 1.50 -Tunneling No -Undermining/Tunneling No -Circular Undermining No -Wound/Ulcer Outcome Not Healed -Ulcer Cleansing Rinsed/ Irrigated with Saline -Foul Odor after Cleansing No -Bioengineered Tissue Yes -Type of Bioengineered Tissue Epifix 18mm Disc -Expiration Date 11/13/27 -Product Lot Number [id number] -Percent Used 100 -Lot number of Saline Used [id number] -Bleeding Controlled with Pressure -Treatment Response Procedure Tolerated Well -Offloading No -Debridement - Subq, 1st 20sq cm No -Apply Skin Sub - 1st 25 sq cm - Legs -Apply Skin Sub - each addt'l 25 sq cm 1 - Feet -Epifix 18mm Disc 3 Pain Scale: 0-10 Numeric Is Patient Pain Free? Yes - Nurse 3 - General Ulcer D/C NN Start: 01/17/23 09:50 Freq: Status: Active Protocol: Activity Type Activity Date Activity User E-sign Co-sign Detail Recorded Client Recorded Date Recorded By Document 01/17/23 12:06 [id number] 01/17/23 12:07 Document 01/24/23 10:01 JF [id number] 01/24/23 10:02 JF Document 01/31/23 09:49 RB [id number] 01/31/23 09:50 RB Document 02/07/23 10:22 RB [id number] 02/07/23 10:23 RB 01/17/23 01/24/23 01/31/23 12:06 10:01 09:49 Wound Care Center Nurse 3 #1 R Lat Ankle -Ulcer Cleansing Rinsed/ Rinsed/ Irrigated with Irrigated with Saline Saline -Foul Odor after Cleansing No -Primary Dressing Applied -Primary Dressing Covered/Secured with Dry Gauze Dry Gauze Dry Gauze -Aquacel Extra Lori-Wound Care Barrier Right -Lotion applied to leg before Yes Yes compression wrap -Multi-Layered Wrap Application Multi-Layer Multi-Layer Multi-Layer Comp - Right ($ Comp - Right ($ Comp - Right ($ ) ) ) Treatment Response Procedure Tolerated Well Pain Scale: 0-10 Numeric Is Patient Pain Free? Yes Yes Yes WC - Visit Discharge Discharge Condition Stable Stable Stable Ambulatory Status Wheelchair Wheelchair Wheelchair Transportation Celsias Medication Reconcilliation completed & Yes Yes No provided to patient/care provider Clinical Summary of Care Provided Yes Yes Yes 02/07/23 10:22 Wound Care Center Nurse 3 #1 R Lat Ankle -Ulcer Cleansing -Foul Odor after Cleansing -Primary Dressing Applied Aquacel Extra -Primary Dressing Covered/Secured with Dry Gauze -Aquacel Extra 1 Lori-Wound Care Right -Lotion applied to leg before compression wrap -Multi-Layered Wrap Application Multi-Layer Comp - Right ($ ) Treatment Response Procedure Tolerated Well Pain Scale: 0-10 Numeric Is Patient Pain Free? 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 Appears a little moist today, no maceration. 10th application of Epifix done today using 100% of product, moistened with saline, covered with wound veil and secured withSteri- Strips. Leave dressing in place for 2 weeks. Aquacel extra to help with moisture. May change outer dressing if needed. Continue 3M wrap for edema management, change on Saturday at the facility. Her questions were answered and she was advised to call with any further questions or concerns. Follow up in 1 week for a nurse visit and with me in 2 weeks. This note was generated with [employer] dictation software. It may contain incorrectwords, spelling, and punctuation that were not noted in checking the note beforesigning. 02/07/23 1152 <Electronically signed by Chilango Laughlin MD> Cosigner Signature (if applicable): CC: ~ Signed [facility] Work Phone: [phone] 374-933207-20-2023 Progress note Author Chilango Laughlin [facility] January 31, 2023 10:02am Note Date/Time January 31, 2023 10:0 2am [facility] [address] [place] [address] Progress Note - Wound Care 01/31/23 1000 MR#: [id number] Acct: [id number] Name: JULIANA MERIDA Rep #:[id number] : 1960 62 From: Chilango joy MD PCP: Bianca Palomares MD Status:REG RCR Location: History of Present Illness Date of Service: 01/31/23 Chief Complaint: Non healing right ankle ulcer History of Wound: Ms. Merida is a 62-year-old who was referred to this facility due to nonhealing right lateral ankle ulcer. Noted a year ago, started out as abullae and subsequently opened up. She states that over the years, she has had alginate and collagen dressings done at her facility without any significant improvement. History of diabetes mellitus, she is not sure of her most recent A1c but states that it has ranged from 8-13. Also history of tobacco use, smokes daily. There is significant pain around the ulcer but she denies otherwise significant leg pain. Does not wear compression. Sleep sedentary butsleeps in the bed. She feels well otherwise, no chills, fever, nausea, vomitingor change in bowel habit reported. Progress of Wound: Has had 8 Epifix applications so far. Also seen by Vascular surgery. No acute concerns at this time. Some improvement noted this week. Objective Data Objective Data Vital Signs: Vital Signs Temp Pulse Resp BP O2 Del Method 97.4 F L 80 18 103/50 L Room Air 01/31/23 08:45 01/31/23 08:45 01/31/23 08:45 01/31/23 08:45 01/24/23 09:02 Oxygen Delivery Method Room Air Charges/Coding Procedures Integumentary 150xxx-152xx: 36764 Skin sub graft trnk/arm/leg Physical Exam Const alert, oriented x3 and no apparent distress General Appearance: cooperative, comfortable and well kempt HEENT normocephalic and head/scalp atraumatic Eyes EOMs intact bilaterally General Eye: normal appearance of both eyes Neck full ROM and supple General: normal visual inspection Resp normal respiratory effort Effort and Inspection: able to speak in complete sentences Extremity General Extremity: edema Skin Wounds: wounds noted Neuro oriented x3, CN's II-XII intact bilaterally and moves all extremities Psych mental status grossly normal, thought process normal, cooperative and affect normal Debridement Note Debridement Note Wound debrided: Right lateral foot/ankle Type of Debridement: Excisional debridement Anesthesia Used: 5% Lidocaine Gel Depth: Down to and including healthy tissue and in the subcutaneous layer Percentage of wound debrided: 100 Instrument Used: 5mm curette Tissue Removed: Slough and devitalized tissue Severity: Fat Layer Exposed Amount of bleeding with debridement: Mild Bleeding Controlled with: Pressure Patient tolerated procedure: Patient tolerated procedure well Post-Debridement Measurements and Additional Note: Post-Debridement Measurements/Treatment - Nurse 1 - General Ulcer Assessment Start: 01/17/23 09:50 Freq: Status: Active Protocol: CLOVIS Activity Type Activity Date Activity User E-sign Co-sign Detail Recorded Client Recorded Date Recorded By Document 01/17/23 09:59 [id number] 01/17/23 10:00 Document 01/24/23 09:02 KW [id number] 01/24/23 09:20 KW Document 01/31/23 08:45 RB [id number] 01/31/23 08:51 RB 01/17/23 01/24/23 01/31/23 09:59 09:02 08:45 - Today's Visit Information Type of service Follow-up Visit Follow-up Visit 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 (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 (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 ) ) ) Arrival Mode Wheelchair Wheelchair Wheelchair Transfer Assistance None Patient Identification Verified (Name & Yes Yes Yes ) Patient Requires Transmission-Based No No No Precautions Finger Stick Blood Sugar(mg/dl) (if 184 indicated): Blood Sugar Stated by Patient Vital Signs Temperature (97.8 F-99.1 F) 96.2 F L 96.5 F L 97.4 F L Temperature Source Temporal Temporal Temporal Pulse Rate (60-100) 63 72 80 Pulse Location Monitor Monitor Monitor Respiratory Rate (12-18) 16 18 18 Respiratory rate source Observation Observation Observation Oxygen Delivery Method Room Air Blood Pressure (90/60-120/80) 102/72 95/46 L 103/50 L Blood Pressure Mean (mm Hg) 82 62 67 Source Monitor Monitor Monitor Position Sitting Semi-Fowlers Semi-Fowlers Blood Pressure Location Right Arm Right Arm Left Arm History Since Last Visit- (Skip if this is Patient's initial visit) Have you changed medications since your No No No last visit? Any new allergies or adverse reactions No No No Had a fall/change in ADL's that may No No No increase risk of falls Signs or symptoms of abuse and/or No No No neglect since last visit Have you been in the hospital since your No No No last visit? Has dressing in place as prescribed Yes Yes Yes Has compression in place as prescribed Yes Yes Yes Has offloadiing in place as prescribed N/A No Experienced any changes in pain level or No No management Left Footwear No Footwear Removable Cast Walker/Walking Boot Right Footwear Slipper Slipper Pain Scale: 0-10 Numeric Is Patient Pain Free? Yes No Yes LLE -Description Dull,Throbbing -Intensity 8 -Duration (hours) Acute -Pain Behavior No Change in Behavior -Alleviating Factors/Interventions None WC - Nurse 1 - General Ulcer Measurement Start: 01/17/23 09:50 Freq: Status: Active Protocol: Activity Type Activity Date Activity User E-sign Co-sign Detail Recorded Client Recorded Date Recorded By Document 01/17/23 09:59 JF [id number] 01/17/23 10:00 JF Document 01/24/23 09:02 KW [id number] 01/24/23 09:20 KW Document 01/31/23 08:45 RB [id number] 01/31/23 08:51 RB 01/17/23 01/24/23 01/31/23 09:59 09:02 08:45 Wound Center Nurse 1 #1 R Lat Ankle -Combined with other wound No No -Current Size (cm) - Length 1.2 1.4 0.9 -Current Size (cm) - Width 0.9 1.0 0.7 -Current Size (cm) - Depth 0.1 0.3 0.2 -Total Square Cm 1.08 1.40 0.63 -Date of Last Picture (Recall this 01/24/23 field) -Photo Taken Yes Yes -Epithelialization Small 1-33% Small 1-33% -Tunneling No -Undermining/Tunneling No -Circular Undermining No -Exudate Amt Small Small Small -Exudate Type Serosanguineous Yellow/Green Serosanguineous -Wound Margin Flat & Intact Distinct, Distinct, Outline Outline Attached Attached -Granulation Amt Medium (34-66%) Small (1-33%) Medium (34-66%) -Granulation Quality Red [place] -Slough/Fibrin Yes -Necrosis Amt Medium (34-66%) Small (1-33%) None Present (0 %) -Necrotic Tissue Type Eschar Adherent Slough -Structure Exposed N/A N/A -Texture (Lori-wound Skin Appearance) Assessed, Assessed Scarring Localized Edema -Moisture (Lori-wound Skin Appearance) Assessed,Dry/ Assessed,Dry/ No Abnormality Scaly Scaly -Color (Lori-wound Skin Appearance) Assessed Assessed Hemosiderin Staining -Temperature (Lori-wound Skin No Abnormality No Abnormality No Abnormality Appearance) (Pt Warm) (Pt Warm) (Pt Warm) -Tenderness on Palpation (Lori-wound No No No Skin Appearance) -Ulcer Cleansing Wound Cleanser Soap and Water Soap and Water -Foul Odor after Cleansing No No No -Anesthetic Used 5% Lidocaine 5% Lidocaine 5% Lidocaine Gel Gel Gel Lower Limb Edema Present Yes Yes Right Calf (cm) 37.7 36.2 36 Right Ankle (cm) 21.2 22.0 21.8 WC - Nurse 2 - General Ulcer CM Notes Start: 01/17/23 09:50 Freq: Status: Active Protocol: Activity Type Activity Date Activity User E-sign Co-sign Detail Recorded Client Recorded Date Recorded By Document 01/17/23 10:11 MW [id number] 01/17/23 10:20 MW Document 01/24/23 09:52 MW [id number] 01/24/23 09:54 MW Document 01/31/23 09:28 MW [id number] 01/31/23 09:36 MW 01/17/23 01/24/23 01/31/23 10:11 09:52 09:28 Wound Center Nurse 2 #1 R Lat Ankle -Time 10:11 09:45 09:28 -Correct Patient Yes Yes Yes -Correct Side, Site, Position Yes Yes Yes -Correct Procedure Yes Yes Yes -Procedure Performed Yes Yes Yes -Type of Procedure Debridement Debridement Debridement -Clinical Debridement Subcutaneous Subcutaneous Subcutaneous -Tissue Removed Subcutaneous Subcutaneous Subcutaneous -Post Debridement (cm) - Length 1.4 1.3 1.2 -Post Debridement (cm) - Width 0.7 0.8 0.6 -Post Debridement (cm) - Depth 0.2 0.2 0.2 -Total Square (Post) (cm) 0.98 1.04 0.72 -Area of Debridement (cm) - Length 1.4 1.3 1.2 -Area of Debridement (cm) - Width 0.7 0.8 0.6 -Total Square (Area) (cm) 0.98 1.04 0.72 -Tunneling No No No -Undermining/Tunneling No No No -Circular Undermining No No No -Wound/Ulcer Outcome Not Healed Not Healed Not Healed -Ulcer Cleansing Rinsed/ Rinsed/ Rinsed/ Irrigated with Irrigated with Irrigated with Saline Saline Saline -Foul Odor after Cleansing No No No -Bioengineered Tissue Yes Yes Yes -Type of Bioengineered Tissue Epifix 18mm Epifix 18mm Epifix 18mm Disc Disc Disc -Expiration Date 11/13/27 11/13/27 12/14/27 -Product Lot Number [id number] -Percent Used 100 100 100 -Lot number of Saline Used [id number] -Bleeding Controlled with Pressure Pressure Pressure -Treatment Response Procedure Procedure Procedure Tolerated Well Tolerated Well Tolerated Well -Offloading No No No -Debridement - Subq, 1st 20sq cm No No No -Apply Skin Sub - 1st 25 sq cm - Legs 1 1 1 -Epifix 18mm Disc 3 3 3 Pain Scale: 0-10 Numeric Is Patient Pain Free? Yes Yes Yes WC - Nurse 3 - General Ulcer D/C NN Start: 01/17/23 09:50 Freq: Status: Active Protocol: Activity Type Activity Date Activity User E-sign Co-sign Detail Recorded Client Recorded Date Recorded By Document 01/17/23 12:06 [id number] 01/17/23 12:07 JF Document 01/24/23 10:01 JF [id number] 01/24/23 10:02 JF Document 01/31/23 09:49 RB [id number] 01/31/23 09:50 RB 01/17/23 01/24/23 01/31/23 12:06 10:01 09:49 Wound Care Center Nurse 3 #1 R Lat Ankle -Ulcer Cleansing Rinsed/ Rinsed/ Irrigated with Irrigated with Saline Saline -Foul Odor after Cleansing No -Primary Dressing Covered/Secured with Dry Gauze Dry Gauze Dry Gauze Lori-Wound Care Barrier Right -Lotion applied to leg before Yes Yes compression wrap -Multi-Layered Wrap Application Multi-Layer Multi-Layer Multi-Layer Comp - Right ($ Comp - Right ($ Comp - Right ($ ) ) ) Treatment Response Procedure Tolerated Well Pain Scale: 0-10 Numeric Is Patient Pain Free? Yes Yes Yes - Visit Discharge Discharge Condition Stable Stable Stable Ambulatory Status Wheelchair Wheelchair Wheelchair Transportation Celsias Medication Reconcilliation completed & Yes Yes No provided to patient/care provider Clinical Summary of Care Provided Yes Yes Yes Assessment/Plan Assessment/Plan (1) 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: CODE(S): L97.312 - Non-pressure chronic ulcer of right ankle with fat layer exposed (2) Insulin dependent diabetes mellitus: (3) Tobacco abuse: CODE(S): Z72.0 - Tobacco use PLAN: Plan Debridement done as documented above, procedure was well-tolerated. Some improvement noted. 9th application of EpiFix done using 100% of product. Moistened with hydrogel, covered with wound veil and secured with Steri-Strips. Leave dressing in place for a week. May change outer dressing if needed. Continue 3M wrap for edema management, change on Saturday at the facility. Prealbumin is low, recommend protein supplements. Her questions were answered and she was advised to call with any further questions or concerns. Follow up in 1 week. This note was generated with [employer] dictation software. It may contain incorrectwords, spelling, and punctuation that were not noted in checking the note beforesigning. 01/31/23 1002 <Electronically signed by hCilango Laughlin MD> Cosigner Signature (if applicable): CC: ~ Signed [facility] Work Phone: [phone]) [phone] Progress note Author Chilango Laughlin [facility] January 24, 2023 11:28am Note Date/Time January 24, 2023 11:2 8am [facility] [address] [place] [address] Progress Note - Wound Care 01/24/23 1125 MR#: [id number] Acct: [id number] Name: JULIANA MERIDA Rep #:[id number] : 1960 62 From: Chilango joy MD PCP: Bianca Palomares MD Status:REG RCR Location: History of Present Illness Date of Service: 01/24/23 Chief Complaint: Non healing right ankle ulcer History of Wound: Ms. Merida is a 62-year-old who was referred to this facility due to nonhealing right lateral ankle ulcer. Noted a year ago, started out as abullae and subsequently opened up. She states that over the years, she has had alginate and collagen dressings done at her facility without any significant improvement. History of diabetes mellitus, she is not sure of her most recent A1c but states that it has ranged from 8-13. Also history of tobacco use, smokes daily. There is significant pain around the ulcer but she denies otherwise significant leg pain. Does not wear compression. Sleep sedentary butsleeps in the bed. She feels well otherwise, no chills, fever, nausea, vomitingor change in bowel habit reported. Progress of Wound: Has had 7 Epifix applications so far. Also seen by Vascular surgery. No acute concerns at this time. Objective Data Objective Data Vital Signs: Vital Signs Temp Pulse Resp BP O2 Del Method 96.5 F L 72 18 95/46 L Room Air 01/24/23 09:02 01/24/23 09:02 01/24/23 09:02 01/24/23 09:02 01/24/23 09:02 Oxygen Delivery Method Room Air Charges/Coding Procedures Integumentary 150xxx-152xx: 33301 Skin sub graft trnk/arm/leg Physical Exam Const alert, oriented x3 and no apparent distress General Appearance: cooperative, comfortable and well kempt HEENT normocephalic and head/scalp atraumatic Eyes EOMs intact bilaterally General Eye: normal appearance of both eyes Neck full ROM and supple General: normal visual inspection Resp normal respiratory effort Effort and Inspection: able to speak in complete sentences Extremity General Extremity: edema Skin Wounds: wounds noted Neuro oriented x3, CN's II-XII intact bilaterally and moves all extremities Psych mental status grossly normal, thought process normal, cooperative and affect normal Debridement Note Debridement Note Wound debrided: Right lateral foot/ankle Type of Debridement: Excisional debridement Anesthesia Used: 5% Lidocaine Gel Depth: Down to and including healthy tissue and in the subcutaneous layer Percentage of wound debrided: 100 Instrument Used: 5mm curette Tissue Removed: Slough and devitalized tissue Severity: Fat Layer Exposed Amount of bleeding with debridement: Mild Bleeding Controlled with: Pressure Patient tolerated procedure: Patient tolerated procedure well Post-Debridement Measurements and Additional Note: Post-Debridement Measurements/Treatment - Nurse 1 - General Ulcer Assessment Start: 01/17/23 09:50 Freq: Status: Active Protocol: CLOVIS Activity Type Activity Date Activity User E-sign Co-sign Detail Recorded Client Recorded Date Recorded By Document 01/17/23 09:59 [id number] 01/17/23 10:00 Document 01/24/23 09:02 [id number] 01/24/23 09:20 KW 01/17/23 01/24/23 09:59 09:02 - Today's Visit Information Type of service Follow-up Visit 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 (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 ) ) Arrival Mode Wheelchair Wheelchair Patient Identification Verified (Name & Yes Yes ) Patient Requires Transmission-Based No No Precautions Finger Stick Blood Sugar(mg/dl) (if 184 indicated): Blood Sugar Stated by Patient Vital Signs Temperature (97.8 F-99.1 F) 96.2 F L 96.5 F L Temperature Source Temporal Temporal Pulse Rate (60-100) 63 72 Pulse Location Monitor Monitor Respiratory Rate (12-18) 16 18 Respiratory rate source Observation Observation Oxygen Delivery Method Room Air Blood Pressure (90/60-120/80) 102/72 95/46 L Blood Pressure Mean (mm Hg) 82 62 Source Monitor Monitor Position Sitting Semi-Fowlers Blood Pressure Location Right Arm Right Arm History Since Last Visit- (Skip if this is Patient's initial visit) Have you changed medications since your No No last visit? Any new allergies or adverse reactions No No Had a fall/change in ADL's that may No No increase risk of falls Signs or symptoms of abuse and/or No No neglect since last visit Have you been in the hospital since your No No last visit? Has dressing in place as prescribed Yes Yes Has compression in place as prescribed Yes Yes Has offloadiing in place as prescribed N/A Experienced any changes in pain level or No management Left Footwear No Footwear Removable Cast Walker/Walking Boot Right Footwear Slipper Slipper Pain Scale: 0-10 Numeric Is Patient Pain Free? Yes No LLE -Description Dull,Throbbing -Intensity 8 -Duration (hours) Acute -Pain Behavior No Change in Behavior -Alleviating Factors/Interventions None WC - Nurse 1 - General Ulcer Measurement Start: 01/17/23 09:50 Freq: Status: Active Protocol: Activity Type Activity Date Activity User E-sign Co-sign Detail Recorded Client Recorded Date Recorded By Document 01/17/23 09:59 [id number] 01/17/23 10:00 Document 01/24/23 09:02 KW [id number] 01/24/23 09:20 KW 01/17/23 01/24/23 09:59 09:02 Wound Center Nurse 1 #1 R Lat Ankle -Combined with other wound No -Current Size (cm) - Length 1.2 1.4 -Current Size (cm) - Width 0.9 1.0 -Current Size (cm) - Depth 0.1 0.3 -Total Square Cm 1.08 1.40 -Date of Last Picture (Recall this 01/24/23 field) -Photo Taken Yes Yes -Epithelialization Small 1-33% Small 1-33% -Tunneling No -Undermining/Tunneling No -Circular Undermining No -Exudate Amt Small Small -Exudate Type Serosanguineous Yellow/Green -Wound Margin Flat & Intact Distinct, Outline Attached -Granulation Amt Medium (34-66%) Small (1-33%) -Granulation Quality Red [place] -Slough/Fibrin Yes -Necrosis Amt Medium (34-66%) Small (1-33%) -Necrotic Tissue Type Eschar Adherent Slough -Structure Exposed N/A -Texture (Lori-wound Skin Appearance) Assessed, Assessed Localized Edema -Moisture (Lori-wound Skin Appearance) Assessed,Dry/ Assessed,Dry/ Scaly Scaly -Color (Lori-wound Skin Appearance) Assessed Assessed -Temperature (Lori-wound Skin No Abnormality No Abnormality Appearance) (Pt Warm) (Pt Warm) -Tenderness on Palpation (Lori-wound No No Skin Appearance) -Ulcer Cleansing Wound Cleanser Soap and Water -Foul Odor after Cleansing No No -Anesthetic Used 5% Lidocaine 5% Lidocaine Gel Gel Lower Limb Edema Present Yes Yes Right Calf (cm) 37.7 36.2 Right Ankle (cm) 21.2 22.0 WC - Nurse 2 - General Ulcer CM Notes Start: 01/17/23 09:50 Freq: Status: Active Protocol: Activity Type Activity Date Activity User E-sign Co-sign Detail Recorded Client Recorded Date Recorded By Document 01/17/23 10:11 MW [id number] 01/17/23 10:20 MW Document 01/24/23 09:52 MW [id number] 01/24/23 09:54 MW 01/17/23 01/24/23 10:11 09:52 Wound Center Nurse 2 #1 R Lat Ankle -Time 10:11 09:45 -Correct Patient Yes Yes -Correct Side, Site, Position Yes Yes -Correct Procedure Yes Yes -Procedure Performed Yes Yes -Type of Procedure Debridement Debridement -Clinical Debridement Subcutaneous Subcutaneous -Tissue Removed Subcutaneous Subcutaneous -Post Debridement (cm) - Length 1.4 1.3 -Post Debridement (cm) - Width 0.7 0.8 -Post Debridement (cm) - Depth 0.2 0.2 -Total Square (Post) (cm) 0.98 1.04 -Area of Debridement (cm) - Length 1.4 1.3 -Area of Debridement (cm) - Width 0.7 0.8 -Total Square (Area) (cm) 0.98 1.04 -Tunneling No No -Undermining/Tunneling No No -Circular Undermining No No -Wound/Ulcer Outcome Not Healed Not Healed -Ulcer Cleansing Rinsed/ Rinsed/ Irrigated with Irrigated with Saline Saline -Foul Odor after Cleansing No No -Bioengineered Tissue Yes Yes -Type of Bioengineered Tissue Epifix 18mm Epifix 18mm Disc Disc -Expiration Date 11/13/27 11/13/27 -Product Lot Number [id number] -Percent Used 100 100 -Lot number of Saline Used [id number] -Bleeding Controlled with Pressure Pressure -Treatment Response Procedure Procedure Tolerated Well Tolerated Well -Offloading No No -Debridement - Subq, 1st 20sq cm No No -Apply Skin Sub - 1st 25 sq cm - Legs 1 1 -Epifix 18mm Disc 3 3 Pain Scale: 0-10 Numeric Is Patient Pain Free? Yes Yes - Nurse 3 - General Ulcer D/C NN Start: 01/17/23 09:50 Freq: Status: Active Protocol: Activity Type Activity Date Activity User E-sign Co-sign Detail Recorded Client Recorded Date Recorded By Document 01/17/23 12:06 [id number] 01/17/23 12:07 Document 01/24/23 10:01 [id number] 01/24/23 10:02 01/17/23 01/24/23 12:06 10:01 Wound Care Center Nurse 3 #1 R Lat Ankle -Ulcer Cleansing Rinsed/ Rinsed/ Irrigated with Irrigated with Saline Saline -Foul Odor after Cleansing No -Primary Dressing Covered/Secured with Dry Gauze Dry Gauze Lori-Wound Care Barrier Right -Lotion applied to leg before Yes Yes compression wrap -Multi-Layered Wrap Application Multi-Layer Multi-Layer Comp - Right ($ Comp - Right ($ ) ) Pain Scale: 0-10 Numeric Is Patient Pain Free? Yes Yes - Visit Discharge Discharge Condition Stable Stable Ambulatory Status Wheelchair Wheelchair Transportation Celsias Medication Reconcilliation completed & Yes Yes provided to patient/care provider Clinical Summary of Care Provided Yes Yes Assessment/Plan Assessment/Plan (1) 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: CODE(S): L97.312 - Non-pressure chronic ulcer of right ankle with fat layer exposed (2) Insulin dependent diabetes mellitus: (3) Tobacco abuse: CODE(S): Z72.0 - Tobacco use PLAN: Plan Debridement done as documented above, procedure was well-tolerated. No significant change this week. 8th application of EpiFix done using 100% of product. Moistened with hydrogel, covered with wound veil and secured with Steri-Strips. Leave dressing in place for a week. May change outer dressing ifneeded. Continue 3M wrap for edema management, change on Saturday at the facility.Prealbumin is low, recommend protein supplements. Her questions were answered and she was advised to call with any further questions or concerns. Follow up in 1 week. This note was generated with [employer] software. It may contain incorrectwords, spelling, and punctuation that were not noted in checking the note beforesigning. 01/24/23 1128 <Electronically signed by Chilango Laughlin MD> Cosigner Signature (if applicable): CC: ~ Signed [facility] Work Phone: 1(339) 175-938307-06-2023 Progress note Author therese Laughlin [facility] January 17, 2023 12:32pm Note Date/Time January 17, 2023 12:29 pm [facility] [address] [place] [id number] Progress Note - Wound Care 01/17/23 1226 MR#: [id number] Acct: [id number] Name: JULIANA MERIDA Rep #:[id number] : 1960 62 From: Chilango joy MD PCP: Bianca Palomares MD Status:REG RCR Location: History of Present Illness Date of Service: 01/17/23 Chief Complaint: Non healing right ankle ulcer History of Wound: Ms. Merida is a 62-year-old who was referred to this facility due to nonhealing right lateral ankle ulcer. Noted a year ago, started out as abullae and subsequently opened up. She states that over the years, she has had alginate and collagen dressings done at her facility without any significant improvement. History of diabetes mellitus, she is not sure of her most recent A1c but states that it has ranged from 8-13. Also history of tobacco use, smokes daily. There is significant pain around the ulcer but she denies otherwise significant leg pain. Does not wear compression. Sleep sedentary butsleeps in the bed. She feels well otherwise, no chills, fever, nausea, vomitingor change in bowel habit reported. Progress of Wound: Has had 6 Epifix applications so far. Also seen by Vascular surgery. No acute concerns at this time. Objective Data Objective Data Vital Signs: Vital Signs Temp Pulse Resp BP 96.2 F L 63 16 102/72 01/17/23 09:59 01/17/23 09:59 01/17/23 09:59 01/17/23 09:59 Charges/Coding Procedures Integumentary 150xxx-152xx: 88183 Skin sub graft trnk/arm/leg Physical Exam Const alert, oriented x3 and no apparent distress General Appearance: cooperative, comfortable and well kempt HEENT normocephalic and head/scalp atraumatic Eyes EOMs intact bilaterally General Eye: normal appearance of both eyes Neck full ROM and supple General: normal visual inspection Resp normal respiratory effort Effort and Inspection: able to speak in complete sentences Extremity General Extremity: edema Skin Wounds: wounds noted Neuro oriented x3, CN's II-XII intact bilaterally and moves all extremities Psych mental status grossly normal, thought process normal, cooperative and affect normal Debridement Note Debridement Note Wound debrided: Right lateral foot/ankle Type of Debridement: Excisional debridement Anesthesia Used: 5% Lidocaine Gel Depth: Down to and including healthy tissue and in the subcutaneous layer Percentage of wound debrided: 100 Instrument Used: 5mm curette Tissue Removed: Slough and devitalized tissue Severity: Fat Layer Exposed Amount of bleeding with debridement: Mild Bleeding Controlled with: Pressure Patient tolerated procedure: Patient tolerated procedure well Post-Debridement Measurements and Additional Note: Post-Debridement Measurements/Treatment - Nurse 1 - General Ulcer Assessment Start: 01/17/23 09:50 Freq: Status: Active Protocol: CLOVIS Activity Type Activity Date Activity User E-sign Co-sign Detail Recorded Client Recorded Date Recorded By Document 01/17/23 09:59 JANICE [id number] 01/17/23 10:00 JANICE 01/17/23 09:59 RUY - Today's Visit Information Type of service 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 Any new allergies or adverse reactions No Had a fall/change in ADL's that may No increase risk of falls Signs or symptoms of abuse and/or No neglect since last visit Have you been in the hospital since your No last visit? Has dressing in place as prescribed Yes Has compression in place as prescribed Yes Has offloadiing in place as prescribed N/A Experienced any changes in pain level or No management Left Footwear No Footwear Right Footwear Slipper Pain Scale: 0-10 Numeric Is Patient Pain Free? Yes WC - Nurse 1 - General Ulcer Measurement Start: 01/17/23 09:50 Freq: Status: Active Protocol: Activity Type Activity Date Activity User E-sign Co-sign Detail Recorded Client Recorded Date Recorded By Document 01/17/23 09:59 [id number] 01/17/23 10:00 JANICE 01/17/23 09:59 Wound Center Nurse 1 #1 R Lat Ankle -Combined with other wound No -Current Size (cm) - Length 1.2 -Current Size (cm) - Width 0.9 -Current Size (cm) - Depth 0.1 -Total Square Cm 1.08 -Photo Taken Yes -Epithelialization Small 1-33% -Tunneling No -Undermining/Tunneling No -Circular Undermining No -Exudate Amt Small -Exudate Type Serosanguineous -Wound Margin Flat & Intact -Granulation Amt Medium (34-66%) -Granulation Quality Red -Slough/Fibrin Yes -Necrosis Amt Medium (34-66%) -Necrotic Tissue Type Eschar -Structure Exposed N/A -Texture (Lori-wound Skin Appearance) Assessed, Localized Edema -Moisture (Lori-wound Skin Appearance) Assessed,Dry/ Scaly -Color (Lori-wound Skin Appearance) Assessed -Temperature (Lori-wound Skin No Abnormality Appearance) (Pt Warm) -Tenderness on Palpation (Lori-wound No Skin Appearance) -Ulcer Cleansing Wound Cleanser -Foul Odor after Cleansing No -Anesthetic Used 5% Lidocaine Gel Lower Limb Edema Present Yes Right Calf (cm) 37.7 Right Ankle (cm) 21.2 WC - Nurse 2 - General Ulcer CM Notes Start: 01/17/23 09:50 Freq: Status: Active Protocol: Activity Type Activity Date Activity User E-sign Co-sign Detail Recorded Client Recorded Date Recorded By Document 01/17/23 10:11 MW [id number] 01/17/23 10:20 MW 01/17/23 10:11 Wound Center Nurse 2 #1 R Lat Ankle -Time 10:11 -Correct Patient Yes -Correct Side, Site, Position Yes -Correct Procedure Yes -Procedure Performed Yes -Type of Procedure Debridement -Clinical Debridement Subcutaneous -Tissue Removed Subcutaneous -Post Debridement (cm) - Length 1.4 -Post Debridement (cm) - Width 0.7 -Post Debridement (cm) - Depth 0.2 -Total Square (Post) (cm) 0.98 -Area of Debridement (cm) - Length 1.4 -Area of Debridement (cm) - Width 0.7 -Total Square (Area) (cm) 0.98 -Tunneling No -Undermining/Tunneling No -Circular Undermining No -Wound/Ulcer Outcome Not Healed -Ulcer Cleansing Rinsed/ Irrigated with Saline -Foul Odor after Cleansing No -Bioengineered Tissue Yes -Type of Bioengineered Tissue Epifix 18mm Disc -Expiration Date 11/13/27 -Product Lot Number [id number] -Percent Used 100 -Bleeding Controlled with Pressure -Treatment Response Procedure Tolerated Well -Offloading No -Debridement - Subq, 1st 20sq cm No -Apply Skin Sub - 1st 25 sq cm - Legs 1 -Epifix 18mm Disc 3 Pain Scale: 0-10 Numeric Is Patient Pain Free? Yes - Nurse 3 - General Ulcer D/C NN Start: 01/17/23 09:50 Freq: Status: Active Protocol: Activity Type Activity Date Activity User E-sign Co-sign Detail Recorded Client Recorded Date Recorded By Document 01/17/23 12:06 JANICE [id number] 01/17/23 12:07 JANICE 01/17/23 12:06 Wound Care Center Nurse 3 #1 R Lat Ankle -Ulcer Cleansing Rinsed/ Irrigated with Saline -Foul Odor after Cleansing No -Primary Dressing Covered/Secured with Dry Gauze Lori-Wound Care Barrier Right -Lotion applied to leg before Yes compression wrap -Multi-Layered Wrap Application Multi-Layer Comp - Right ($ ) Pain Scale: 0-10 Numeric Is Patient Pain Free? Yes WC - Visit Discharge Discharge Condition Stable Ambulatory Status Wheelchair Transportation Private Auto Medication Reconcilliation completed & Yes provided to patient/care provider Clinical Summary of Care Provided Yes Assessment/Plan Assessment/Plan (1) 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: CODE(S): L97.312 - Non-pressure chronic ulcer of right ankle with fat layer exposed (2) Insulin dependent diabetes mellitus: (3) Tobacco abuse: CODE(S): Z72.0 - Tobacco use PLAN: Plan Debridement done as documented above, procedure was well-tolerated. Improving. 7th application of EpiFix done using 100% of product. Moistened with hydrogel,covered with Adaptic touch and secured with Steri-Strips. Leave dressing in place for a week. May change outer dressing if needed. Continue 3M wrap for edema management, change on Saturday at the facility. Prealbumin is low, recommendprotein supplements twice daily. Also referred to Vascular surgery due to mild PAD on the right, yet to schedule appointment. Her questions were answered and she was advised to call with any further questions or concerns. Follow up in 1 week. This note was generated with [employer] dictation software. It may contain incorrectwords, spelling, and punctuation that were not noted in checking the note beforesigning. 01/17/23 1232 <Electronically signed by Chilango Laughlin MD> Cosigner Signature (if applicable): CC: ~ Signed [facility] Work Phone: 1(277) 450-946006-30-2023 Progress note Author Beata Pardo [facility] January 11, 2023 5:30pm Note Date/Time January 11, 2023 5:30 pm [facility] [address] [place] [address] Progress Note - Wound Care 01/11/23 1723 MR#: [id number] Acct: [id number] Name: JULIANA MERIDA Rep #:[id number] : 1960 62 From: Beata HILLIARD PCP: Bianca Palomares MD Status:REG RCR Location: History of Present Illness Date of Service: 01/11/23 Chief Complaint: Non healing right ankle ulcer History of Wound: Ms. Merida is a 62-year-old who was referred to this facility due to nonhealing right lateral ankle ulcer. Noted a year ago, started out as abullae and subsequently opened up. She states that over the years, she has had alginate and collagen dressings done at her facility without any significant improvement. History of diabetes mellitus, she is not sure of her most recent A1c but states that it has ranged from 8-13. Also history of tobacco use, smokes daily. There is significant pain around the ulcer but she denies otherwise significant leg pain. Does not wear compression. Sleep sedentary butsleeps in the bed. She feels well otherwise, no chills, fever, nausea, vomitingor change in bowel habit reported. Progress of Wound: She reports she is doing well. Edema remains improved with compression wraps. She denies any new or worsening pain, edema, erythema, drainage and denies nausea, vomiting, fevers, chills. Objective Data Objective Data Vital Signs: Vital Signs Temp Pulse Resp BP O2 Del Method 97.8 F 72 18 120/59 L Room Air 01/11/23 13:25 01/11/23 13:25 01/11/23 13:25 01/11/23 13:25 01/03/23 09:05 Oxygen Delivery Method Room Air Charges/Coding Procedures Integumentary 150xxx-152xx: 30542 Skin sub graft trnk/arm/leg Physical Exam Const alert, oriented x3 and no apparent distress General Appearance: cooperative, comfortable and well kempt HEENT normocephalic and head/scalp atraumatic Eyes EOMs intact bilaterally General Eye: normal appearance of both eyes Neck full ROM and supple General: normal visual inspection Resp normal respiratory effort Effort and Inspection: able to speak in complete sentences Extremity General Extremity: edema Skin Wounds: wounds noted Neuro oriented x3, CN's II-XII intact bilaterally and moves all extremities Psych mental status grossly normal, thought process normal, cooperative and affect normal Debridement Note Debridement Note Wound debrided: Right lateral foot/ankle Type of Debridement: Excisional debridement Anesthesia Used: 5% Lidocaine Gel Depth: Down to and including healthy tissue and in the subcutaneous layer Percentage of wound debrided: 100 Instrument Used: 5mm curette Tissue Removed: Slough and devitalized tissue Severity: Fat Layer Exposed Amount of bleeding with debridement: Mild Bleeding Controlled with: Pressure Patient tolerated procedure: Patient tolerated procedure well Post-Debridement Measurements and Additional Note: Post-Debridement Measurements/Treatment - Nurse 1 - General Ulcer Assessment Start: 12/13/22 09:39 Freq: Status: Active Protocol: RUYIsoPlexisBRIANDA Activity Type Activity Date Activity User E-sign Co-sign Detail Recorded Client Recorded Date Recorded By Document 12/13/22 09:39 [facility] [id number] 12/13/22 09:42 [facility] Document 12/20/22 09:48 [facility] [id number] 12/20/22 09:59 [facility] Document 01/03/23 09:05 [facility] [id number] 01/03/23 09:16 [facility] Document 01/11/23 13:25 PL [id number] 01/11/23 13:35 PL 12/13/22 12/20/22 01/03/23 09:39 09:48 09:05 - Today's Visit Information Type of service Follow-up Visit Follow-up Visit 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 (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 (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 ) ) ) Arrival Mode Wheelchair Wheelchair Wheelchair Transfer Assistance None None None Patient Identification Verified (Name & Yes Yes Yes ) Patient Requires Transmission-Based No No No Precautions Safety Precautions Finger Stick Blood Sugar(mg/dl) (if 146 indicated): Blood Sugar Stated by Patient Vital Signs Temperature (97.8 F-99.1 F) 97 F L 96.8 F L 96.8 F L Temperature Source Temporal Temporal Temporal Pulse Rate (60-100) 63 77 89 Pulse Location Monitor Monitor Monitor Respiratory Rate (12-18) 18 16 16 Respiratory rate source Observation Observation Observation Oxygen Delivery Method Room Air Room Air Blood Pressure (90/60-120/80) 125/57 H 104/47 L 106/59 L Blood Pressure Mean (mm Hg) 79 66 74 Source Monitor Monitor Monitor Position Sitting Sitting Blood Pressure Location Right Arm Right Arm History Since Last Visit- (Skip if this is Patient's initial visit) Have you changed medications since your No No No last visit? Any new allergies or adverse reactions No No No Had a fall/change in ADL's that may No No No increase risk of falls Signs or symptoms of abuse and/or No No No neglect since last visit Have you been in the hospital since your No No No last visit? Has dressing in place as prescribed Yes Yes Yes Has compression in place as prescribed Yes Yes Yes Has offloadiing in place as prescribed Yes N/A N/A Experienced any changes in pain level or No No No management Left Footwear Other Footwear (Comment) Right Footwear Slipper Slipper Other Footwear left leg in cast to lle cast d/t fx Pain Scale: 0-10 Numeric Is Patient Pain Free? 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 ) Arrival Mode Wheelchair Transfer Assistance None Patient Identification Verified (Name & Yes ) Patient Requires Transmission-Based No Precautions Safety Precautions NA Finger Stick Blood Sugar(mg/dl) (if 238 indicated): Blood Sugar Stated by Patient Vital Signs Temperature (97.8 F-99.1 F) 97.8 F Temperature Source Temporal Pulse Rate (60-100) 72 Pulse Location Respiratory Rate (12-18) 18 Respiratory rate source Oxygen Delivery Method Blood Pressure (90/60-120/80) 120/59 L Blood Pressure Mean (mm Hg) 79 Source Position Blood Pressure Location History Since Last Visit- (Skip if this is Patient's initial visit) Have you changed medications since your No last visit? Any new allergies or adverse reactions No Had a fall/change in ADL's that may No increase risk of falls Signs or symptoms of abuse and/or No neglect since last visit Have you been in the hospital since your No last visit? Has dressing in place as prescribed Yes Has compression in place as prescribed Yes Has offloadiing in place as prescribed N/A Experienced any changes in pain level or No management Left Footwear Right Footwear Other Footwear Pain Scale: 0-10 Numeric Is Patient Pain Free? Yes L LEG (CAST/FX) -Description -Intensity -Duration (hours) -Pain Behavior -Pain Aggravating Factors -Alleviating Factors/Interventions -Comments WC - Nurse 1 - General Ulcer Measurement Start: 12/13/22 09:39 Freq: Status: Active Protocol: Activity Type Activity Date Activity User E-sign Co-sign Detail Recorded Client Recorded Date Recorded By Document 12/13/22 09:39 [facility] [id number] 12/13/22 09:42 BM Document 12/20/22 09:48 [facility] [id number] 12/20/22 09:59 BM Document 01/03/23 09:05 [facility] [id number] 01/03/23 09:16 BMF 12/13/22 12/20/22 01/03/23 09:39 09:48 09:05 Wound Center Nurse 1 #1 R Lat Ankle -Combined with other wound No No -Current Size (cm) - Length 1.3 1.4 1.1 -Current Size (cm) - Width 1 1 0.9 -Current Size (cm) - Depth 0.2 0.3 0.1 -Total Square Cm 1.3 1.4 0.99 -Date of Last Picture (Recall this 12/20/22 01/03/23 field) -Photo Taken Yes Yes Yes -Epithelialization None Present Small 1-33% -Tunneling No No -Undermining/Tunneling No No -Circular Undermining No No -Exudate Amt Medium Medium Medium -Exudate Type Serosanguineous Serosanguineous Serosanguineous -Wound Margin Distinct, Distinct, Distinct, Outline Outline Outline Attached Attached Attached -Granulation Amt Large (67-100%) Medium (34-66%) Small (1-33%) -Granulation Quality Red Red Red -Slough/Fibrin Yes Yes -Necrosis Amt Small (1-33%) Medium (34-66%) Large (67-100%) -Necrotic Tissue Type Adherent Slough Adherent Slough Adherent Slough -Structure Exposed N/A -Texture (Lori-wound Skin Appearance) Scarring Assessed, Assessed, Scarring Scarring -Moisture (Lori-wound Skin Appearance) Maceration Assessed,Dry/ Assessed Scaly -Color (Lori-wound Skin Appearance) Hemosiderin Assessed Assessed Staining -Temperature (Lori-wound Skin No Abnormality No Abnormality No Abnormality Appearance) (Pt Warm) (Pt Warm) (Pt Warm) -Tenderness on Palpation (Lori-wound No No No Skin Appearance) -Ulcer Cleansing Soap and Water Soap and Water Soap and Water -Foul Odor after Cleansing No No No -Anesthetic Used 5% Lidocaine 5% Lidocaine 5% Lidocaine Gel Gel Gel Lower Limb Edema Present Yes Right Calf (cm) 38.1 36.4 36.2 Right Ankle (cm) 28.5 22.5 22.5 WC - Nurse 2 - General Ulcer CM Notes Start: 12/13/22 09:39 Freq: Status: Active Protocol: Activity Type Activity Date Activity User E-sign Co-sign Detail Recorded Client Recorded Date Recorded By Document 12/13/22 09:53 MW [id number] 12/13/22 10:02 MW Document 12/20/22 10:48 MW [id number] 12/20/22 10:58 MW Document 01/03/23 10:08 MW [id number] 01/03/23 10:17 MW Document 01/11/23 15:55 PL [id number] 01/11/23 15:56 PL 12/13/22 12/20/22 01/03/23 09:53 10:48 10:08 Wound Center Nurse 2 #1 R Lat Ankle -Time 09:58 10:49 10:09 -Correct Patient Yes Yes Yes -Correct Side, Site, Position Yes Yes Yes -Correct Procedure Yes Yes Yes -Procedure Performed Yes Yes Yes -Type of Procedure Debridement Debridement Debridement -Clinical Debridement Subcutaneous Subcutaneous Subcutaneous -Tissue Removed Subcutaneous Subcutaneous Subcutaneous -Post Debridement (cm) - Length 1.5 1.5 -Post Debridement (cm) - Width 0.9 1.1 -Post Debridement (cm) - Depth 0.2 0.2 -Total Square (Post) (cm) 1.35 1.65 -Area of Debridement (cm) - Length 1.5 1.5 -Area of Debridement (cm) - Width 1.5 1.1 -Total Square (Area) (cm) 2.25 1.65 -Tunneling No No No -Undermining/Tunneling No No No -Circular Undermining No No No -Wound/Ulcer Outcome Not Healed Not Healed Not Healed -Ulcer Cleansing Rinsed/ Rinsed/ Wound Cleanser Irrigated with Irrigated with Saline Saline -Foul Odor after Cleansing No No No -Bioengineered Tissue Yes Yes Yes -Type of Bioengineered Tissue Epifix 18mm Epifix 18mm Epifix 18mm Disc Disc Disc -Expiration Date 09/13/27 10/14/27 10/14/27 -Product Lot Number [id number] -Percent Used 100 100 100 -Lot number of Saline Used [id number] -Bleeding Controlled with Pressure Pressure Pressure -Treatment Response Procedure Procedure Procedure Tolerated Well Tolerated Well Tolerated Well -Offloading No No No -Debridement - Subq, 1st 20sq cm No No No -Apply Skin Sub - 1st 25 sq cm - Legs 1 1 1 -Epifix 18mm Disc 3 3 3 Pain Scale: 0-10 Numeric Is Patient Pain Free? Yes Yes Yes 01/11/23 15:55 Wound Center Nurse 2 #1 R Lat Ankle -Time 13:40 -Correct Patient Yes -Correct Side, Site, Position Yes -Correct Procedure Yes -Procedure Performed Yes -Type of Procedure Debridement -Clinical Debridement Subcutaneous -Tissue Removed Subcutaneous -Post Debridement (cm) - Length 1.5 -Post Debridement (cm) - Width 1.0 -Post Debridement (cm) - Depth 0.7 -Total Square (Post) (cm) 1.50 -Area of Debridement (cm) - Length 1.5 -Area of Debridement (cm) - Width 1.0 -Total Square (Area) (cm) 1.50 -Tunneling No -Undermining/Tunneling No -Circular Undermining No -Wound/Ulcer Outcome Not Healed -Ulcer Cleansing Rinsed/ Irrigated with Saline -Foul Odor after Cleansing No -Bioengineered Tissue Yes -Type of Bioengineered Tissue Epifix 18mm Disc -Expiration Date 10/14/27 -Product Lot Number [id number] -Percent Used 100 -Lot number of Saline Used -Bleeding Controlled with Pressure -Treatment Response Procedure Tolerated Well -Offloading -Debridement - Subq, 1st 20sq cm No -Apply Skin Sub - 1st 25 sq cm - Legs 1 -Epifix 18mm Disc 3 Pain Scale: 0-10 Numeric Is Patient Pain Free? Yes WC - Nurse 3 - General Ulcer D/C NN Start: 12/13/22 09:39 Freq: Status: Active Protocol: Activity Type Activity Date Activity User E-sign Co-sign Detail Recorded Client Recorded Date Recorded By Document 12/13/22 10:17 DL [id number] 12/13/22 10:18 DL Document 12/20/22 11:45 DL [id number] 12/20/22 11:46 DL Document 01/03/23 10:33 BMF [id number] 01/03/23 10:34 BMF Document 01/11/23 14:04 RB [id number] 01/11/23 14:05 RB 12/13/22 12/20/22 01/03/23 10:17 11:45 10:33 Wound Care Center Nurse 3 #1 R Lat Ankle -Ulcer Cleansing -Foul Odor after Cleansing No No -Other Dressing Epimesh EPIFIX -Primary Dressing Covered/Secured with Dry Gauze Dry Gauze -Other Covering ABD Right -Lotion applied to leg before Yes compression wrap -Multi-Layered Wrap Application Multi-Layer Multi-Layer Multi-Layer Comp - Right ($ Comp - Right ($ Comp - Right ($ ) ) ) Treatment Response Procedure Procedure Procedure Tolerated Well Tolerated Well Tolerated Well Pain Scale: 0-10 Numeric Is Patient Pain Free? Yes Yes Yes WC - Visit Discharge Discharge Condition Stable Stable Stable Ambulatory Status Wheelchair Wheelchair Wheelchair Transportation Private Auto Private Auto ECF Medication Reconcilliation completed & provided to patient/care provider Clinical Summary of Care Provided Facility Type [facility] Facility Facility Orders Sent Yes Yes 01/11/23 14:04 Wound Care Center Nurse 3 #1 R Lat Ankle -Ulcer Cleansing Rinsed/ Irrigated with Saline -Foul Odor after Cleansing -Other Dressing -Primary Dressing Covered/Secured with Dry Gauze, Secured with Tape -Other Covering Right -Lotion applied to leg before compression wrap -Multi-Layered Wrap Application Multi-Layer Comp - Right ($ ) Treatment Response Procedure Tolerated Well Pain Scale: 0-10 Numeric Is Patient Pain Free? Yes WC - Visit Discharge Discharge Condition Stable Ambulatory Status Ambulatory Transportation Private Auto Medication Reconcilliation completed & No provided to patient/care provider Clinical Summary of Care Provided Yes Facility Type Orders Sent Assessment/Plan Assessment/Plan (1) 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: CODE(S): L97.312 - Non-pressure chronic ulcer of right ankle with fat layer exposed (2) Insulin dependent diabetes mellitus: (3) Tobacco abuse: CODE(S): Z72.0 - Tobacco use PLAN: Plan Patient seen today as a courtesy visit for another wound care provider. Debridement was performed to obtain a clean and well bleeding wound bed. EpiFix#6 was applied in sterile fashion, moistened with saline, covered with Adaptic, and secured with Steri-Strips. 100% of the product was used. Patient was instructed to leave this in place for 1 week and to keep dry. The outer dressing may be changed as needed to keep clean and dry. Will continue with 3M wraps for compression. Patient has an appointment with our vascular surgery office on 01/16/23. Return to the wound care center next as scheduled. This note was generated with [employer] dictation software. It may contain incorrectwords, spelling, and punctuation that were not noted in checking the note beforesigning. 01/11/23 1730 <Electronically signed by Beata HILLIARD> Cosigner Signature (if applicable): CC: ~ Signed [facility] Work Phone: 1(149) 178-157606-22-2023 Progress note Author Chilango Laughlin [facility] January 03, 2023 1:45pm Note Date/Time January 03, 2023 10:4 3am [facility] [address] [place] [address] Progress Note - Wound Care 01/03/23 1037 MR#: [id number] Acct: [id number] Name: JULIANA MERIDA YANELI Rep #:[id number] : 1960 62 From: Chilango joy MD PCP: Bianca Palomares MD Status:REG RCR Location: History of Present Illness Date of Service: 01/03/23 Chief Complaint: Non healing right ankle ulcer History of Wound: Ms. Merida is a 62-year-old who was referred to this facility due to nonhealing right lateral ankle ulcer. Noted a year ago, started out as abullae and subsequently opened up. She states that over the years, she has had alginate and collagen dressings done at her facility without any significant improvement. History of diabetes mellitus, she is not sure of her most recent A1c but states that it has ranged from 8-13. Also history of tobacco use, smokes daily. There is significant pain around the ulcer but she denies otherwise significant leg pain. Does not wear compression. Sleep sedentary butsleeps in the bed. She feels well otherwise, no chills, fever, nausea, vomitingor change in bowel habit reported. Progress of Wound: Has had 4 Epifix applications so far. Missed her appointment last week due to transportation concerns. Edema has improved with 3M wrap. Yet to schedule an appointment with vascular surgery. Mild PAD (0.9) on the right. Objective Data Objective Data Vital Signs: Vital Signs Temp Pulse Resp BP O2 Del Method 96.8 F L 89 16 106/59 L Room Air 01/03/23 09:05 01/03/23 09:05 01/03/23 09:05 01/03/23 09:05 01/03/23 09:05 Oxygen Delivery Method Room Air Charges/Coding Procedures Integumentary 150xxx-152xx: 20723 Skin sub graft trnk/arm/leg Physical Exam Const alert, oriented x3 and no apparent distress General Appearance: cooperative, comfortable and well kempt HEENT normocephalic and head/scalp atraumatic Eyes EOMs intact bilaterally General Eye: normal appearance of both eyes Neck full ROM and supple General: normal visual inspection Resp normal respiratory effort Effort and Inspection: able to speak in complete sentences Extremity General Extremity: edema Skin Wounds: wounds noted Neuro oriented x3, CN's II-XII intact bilaterally and moves all extremities Psych mental status grossly normal, thought process normal, cooperative and affect normal Debridement Note Debridement Note Wound debrided: Right lateral foot/ankle Type of Debridement: Excisional debridement Anesthesia Used: 5% Lidocaine Gel Depth: Down to and including healthy tissue and in the subcutaneous layer Percentage of wound debrided: 100 Instrument Used: 5mm curette Tissue Removed: Slough and devitalized tissue Severity: Fat Layer Exposed Amount of bleeding with debridement: Mild Bleeding Controlled with: Pressure Patient tolerated procedure: Patient tolerated procedure well Post-Debridement Measurements and Additional Note: Post-Debridement Measurements/Treatment WC - Nurse 1 - General Ulcer Assessment Start: 12/13/22 09:39 Freq: Status: Active Protocol: CLOVIS Activity Type Activity Date Activity User E-sign Co-sign Detail Recorded Client Recorded Date Recorded By Document 12/13/22 09:39 [facility] [id number] 12/13/22 09:42 BM Document 12/20/22 09:48 [facility] [id number] 12/20/22 09:59 BM Document 01/03/23 09:05 [facility] [id number] 01/03/23 09:16 [facility] 12/13/22 12/20/22 01/03/23 09:39 09:48 09:05 - Today's Visit Information Type of service Follow-up Visit Follow-up Visit 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 (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 (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 ) ) ) Arrival Mode Wheelchair Wheelchair Wheelchair Transfer Assistance None None None Patient Identification Verified (Name & Yes Yes Yes ) Patient Requires Transmission-Based No No No Precautions Finger Stick Blood Sugar(mg/dl) (if 146 indicated): Blood Sugar Stated by Patient Vital Signs Temperature (97.8 F-99.1 F) 97 F L 96.8 F L 96.8 F L Temperature Source Temporal Temporal Temporal Pulse Rate (60-100) 63 77 89 Pulse Location Monitor Monitor Monitor Respiratory Rate (12-18) 18 16 16 Respiratory rate source Observation Observation Observation Oxygen Delivery Method Room Air Room Air Blood Pressure (90/60-120/80) 125/57 H 104/47 L 106/59 L Blood Pressure Mean (mm Hg) 79 66 74 Source Monitor Monitor Monitor Position Sitting Sitting Blood Pressure Location Right Arm Right Arm History Since Last Visit- (Skip if this is Patient's initial visit) Have you changed medications since your No No No last visit? Any new allergies or adverse reactions No No No Had a fall/change in ADL's that may No No No increase risk of falls Signs or symptoms of abuse and/or No No No neglect since last visit Have you been in the hospital since your No No No last visit? Has dressing in place as prescribed Yes Yes Yes Has compression in place as prescribed Yes Yes Yes Has offloadiing in place as prescribed Yes N/A N/A Experienced any changes in pain level or No No No management Left Footwear Other Footwear (Comment) Right Footwear Slipper Slipper Other Footwear left leg in cast to lle cast d/t fx Pain Scale: 0-10 Numeric Is Patient Pain Free? Yes No Yes L LEG (CAST/FX) -Description Sharp -Intensity 9 -Duration (hours) Acute -Pain Behavior No Change in Behavior -Pain Aggravating Factors Sitting -Alleviating Factors/Interventions Distraction, Will continue to monitor, Patient denies need for intervention, Emotional Support -Comments PT STATES WILL TAKE PAIN MEDS UPON RETURN TO [facility] WC - Nurse 1 - General Ulcer Measurement Start: 12/13/22 09:39 Freq: Status: Active Protocol: Activity Type Activity Date Activity User E-sign Co-sign Detail Recorded Client Recorded Date Recorded By Document 12/13/22 09:39 [facility] [id number] 12/13/22 09:42 [facility] Document 12/20/22 09:48 [facility] [id number] 12/20/22 09:59 [facility] Document 01/03/23 09:05 [facility] [id number] 01/03/23 09:16 [facility] 12/13/22 12/20/22 01/03/23 09:39 09:48 09:05 Wound Center Nurse 1 #1 R Lat Ankle -Combined with other wound No No -Current Size (cm) - Length 1.3 1.4 1.1 -Current Size (cm) - Width 1 1 0.9 -Current Size (cm) - Depth 0.2 0.3 0.1 -Total Square Cm 1.3 1.4 0.99 -Date of Last Picture (Recall this 12/20/22 01/03/23 field) -Photo Taken Yes Yes Yes -Epithelialization None Present Small 1-33% -Tunneling No No -Undermining/Tunneling No No -Circular Undermining No No -Exudate Amt Medium Medium Medium -Exudate Type Serosanguineous Serosanguineous Serosanguineous -Wound Margin Distinct, Distinct, Distinct, Outline Outline Outline Attached Attached Attached -Granulation Amt Large (67-100%) Medium (34-66%) Small (1-33%) -Granulation Quality Red Red Red -Slough/Fibrin Yes Yes -Necrosis Amt Small (1-33%) Medium (34-66%) Large (67-100%) -Necrotic Tissue Type Adherent Slough Adherent Slough Adherent Slough -Structure Exposed N/A -Texture (Lori-wound Skin Appearance) Scarring Assessed, Assessed, Scarring Scarring -Moisture (Lori-wound Skin Appearance) Maceration Assessed,Dry/ Assessed Scaly -Color (Lori-wound Skin Appearance) Hemosiderin Assessed Assessed Staining -Temperature (Lori-wound Skin No Abnormality No Abnormality No Abnormality Appearance) (Pt Warm) (Pt Warm) (Pt Warm) -Tenderness on Palpation (Lori-wound No No No Skin Appearance) -Ulcer Cleansing Soap and Water Soap and Water Soap and Water -Foul Odor after Cleansing No No No -Anesthetic Used 5% Lidocaine 5% Lidocaine 5% Lidocaine Gel Gel Gel Lower Limb Edema Present Yes Right Calf (cm) 38.1 36.4 36.2 Right Ankle (cm) 28.5 22.5 22.5 WC - Nurse 2 - General Ulcer CM Notes Start: 12/13/22 09:39 Freq: Status: Active Protocol: Activity Type Activity Date Activity User E-sign Co-sign Detail Recorded Client Recorded Date Recorded By Document 12/13/22 09:53 MW [id number] 12/13/22 10:02 MW Document 12/20/22 10:48 MW [id number] 12/20/22 10:58 MW Document 01/03/23 10:08 MW [id number] 01/03/23 10:17 MW 12/13/22 12/20/22 01/03/23 09:53 10:48 10:08 Wound Center Nurse 2 #1 R Lat Ankle -Time 09:58 10:49 10:09 -Correct Patient Yes Yes Yes -Correct Side, Site, Position Yes Yes Yes -Correct Procedure Yes Yes Yes -Procedure Performed Yes Yes Yes -Type of Procedure Debridement Debridement Debridement -Clinical Debridement Subcutaneous Subcutaneous Subcutaneous -Tissue Removed Subcutaneous Subcutaneous Subcutaneous -Post Debridement (cm) - Length 1.5 1.5 -Post Debridement (cm) - Width 0.9 1.1 -Post Debridement (cm) - Depth 0.2 0.2 -Total Square (Post) (cm) 1.35 1.65 -Area of Debridement (cm) - Length 1.5 1.5 -Area of Debridement (cm) - Width 1.5 1.1 -Total Square (Area) (cm) 2.25 1.65 -Tunneling No No No -Undermining/Tunneling No No No -Circular Undermining No No No -Wound/Ulcer Outcome Not Healed Not Healed Not Healed -Ulcer Cleansing Rinsed/ Rinsed/ Wound Cleanser Irrigated with Irrigated with Saline Saline -Foul Odor after Cleansing No No No -Bioengineered Tissue Yes Yes Yes -Type of Bioengineered Tissue Epifix 18mm Epifix 18mm Epifix 18mm Disc Disc Disc -Expiration Date 09/13/27 10/14/27 10/14/27 -Product Lot Number [id number] -Percent Used 100 100 100 -Lot number of Saline Used [id number] -Bleeding Controlled with Pressure Pressure Pressure -Treatment Response Procedure Procedure Procedure Tolerated Well Tolerated Well Tolerated Well -Offloading No No No -Debridement - Subq, 1st 20sq cm No No No -Apply Skin Sub - 1st 25 sq cm - Legs 1 1 1 -Epifix 18mm Disc 3 3 3 Pain Scale: 0-10 Numeric Is Patient Pain Free? Yes Yes Yes - Nurse 3 - General Ulcer D/C NN Start: 12/13/22 09:39 Freq: Status: Active Protocol: Activity Type Activity Date Activity User E-sign Co-sign Detail Recorded Client Recorded Date Recorded By Document 12/13/22 10:17 DL [id number] 12/13/22 10:18 DL Document 12/20/22 11:45 DL [id number] 12/20/22 11:46 DL Document 01/03/23 10:33 [facility] [id number] 01/03/23 10:34 [facility] 12/13/22 12/20/22 01/03/23 10:17 11:45 10:33 Wound Care Center Nurse 3 #1 R Lat Ankle -Foul Odor after Cleansing No No -Other Dressing Epimesh EPIFIX -Primary Dressing Covered/Secured with Dry Gauze Dry Gauze -Other Covering ABD Right -Lotion applied to leg before Yes compression wrap -Multi-Layered Wrap Application Multi-Layer Multi-Layer Multi-Layer Comp - Right ($ Comp - Right ($ Comp - Right ($ ) ) ) Treatment Response Procedure Procedure Procedure Tolerated Well Tolerated Well Tolerated Well Pain Scale: 0-10 Numeric Is Patient Pain Free? 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 No significant change since her last visit. 5th application of EpiFix done using 100% of product. Moistened with hydrogel, covered with Adaptic touch and secured with Steri- Strips. Leave dressing in place for a week. May change outer dressing if needed. Continue 3M wrap for edema management, change on Saturday at the facility. Prealbumin is low, recommend protein supplements twice daily. Also referred to Vascular surgery due to mild PAD on the right, yet to schedule appointment. Her questions were answered and she was advised to call with any further questions or concerns. Follow-up in a week for a courtesy visit and in 2 weeks with me. This note was generated with [employer] dictation software. It may contain incorrectwords, spelling, and punctuation that were not noted in checking the note beforesigning. 01/03/23 1345 <Electronically signed by Chilango Laughlin MD> Cosigner Signature (if applicable): CC: ~ Signed [facility] Work Phone: 1(842) 565-646906-08-2023 Progress note Author Chilango Laughlin [facility] December 20, 2022 12:33pm Note Date/Time December 20, 2022 12:33 pm [facility] [address] [place] [id number] Progress Note - Wound Care 12/20/22 1223 MR#: [id number] Acct: [id number] Name: JULIANA MERIDA Rep #:[id number] : 1960 62 From: Chilango joy MD PCP: Bianca Palomares MD Status:REG RCR Location: History of Present Illness Date of Service: 12/20/22 Chief Complaint: Non healing right ankle ulcer History of Wound: Ms. Merida is a 62-year-old who was referred to this facility due to nonhealing right lateral ankle ulcer. Noted a year ago, started out as abullae and subsequently opened up. She states that over the years, she has had alginate and collagen dressings done at her facility without any significant improvement. History of diabetes mellitus, she is not sure of her most recent A1c but states that it has ranged from 8-13. Also history of tobacco use, smokes daily. There is significant pain around the ulcer but she denies otherwise significant leg pain. Does not wear compression. Sleep sedentary butsleeps in the bed. She feels well otherwise, no chills, fever, nausea, vomitingor change in bowel habit reported. Progress of Wound: Has had 3 Epifix applications so far. No new concerns at this time. Still has significant edema. Objective Data Objective Data Vital Signs: Vital Signs Temp Pulse Resp BP O2 Del Method 96.8 F L 77 16 104/47 L Room Air 12/20/22 09:48 12/20/22 09:48 12/20/22 09:48 12/20/22 09:48 12/20/22 09:48 Oxygen Delivery Method Room Air Charges/Coding Procedures Integumentary 150xxx-152xx: 97239 Skin sub graft trnk/arm/leg Physical Exam Const alert, oriented x3 and no apparent distress General Appearance: cooperative, comfortable and well kempt HEENT normocephalic and head/scalp atraumatic Eyes EOMs intact bilaterally General Eye: normal appearance of both eyes Neck full ROM and supple General: normal visual inspection Resp normal respiratory effort Effort and Inspection: able to speak in complete sentences Extremity General Extremity: edema Skin Wounds: wounds noted Neuro oriented x3, CN's II-XII intact bilaterally and moves all extremities Psych mental status grossly normal, thought process normal, cooperative and affect normal Debridement Note Debridement Note Wound debrided: Right lateral foot/ankle Type of Debridement: Excisional debridement Anesthesia Used: 5% Lidocaine Gel Depth: Down to and including healthy tissue and in the subcutaneous layer Percentage of wound debrided: 100 Instrument Used: 5mm curette Tissue Removed: Slough and devitalized tissue Severity: Fat Layer Exposed Amount of bleeding with debridement: Mild Bleeding Controlled with: Pressure Patient tolerated procedure: Patient tolerated procedure well Post-Debridement Measurements and Additional Note: Post-Debridement Measurements/Treatment - Nurse 1 - General Ulcer Assessment Start: 12/13/22 09:39 Freq: Status: Active Protocol: CLOVIS Activity Type Activity Date Activity User E-sign Co-sign Detail Recorded Client Recorded Date Recorded By Document 12/13/22 09:39 [facility] [id number] 12/13/22 09:42 [facility] Document 12/20/22 09:48 [facility] [id number] 12/20/22 09:59 [facility] 12/13/22 12/20/22 09:39 09:48 - Today's Visit Information Type of service Follow-up Visit 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 (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 ) ) Arrival Mode Wheelchair Wheelchair Transfer Assistance None None Patient Identification Verified (Name & Yes Yes ) Patient Requires Transmission-Based No No Precautions Finger Stick Blood Sugar(mg/dl) (if 146 indicated): Blood Sugar Stated by Patient Vital Signs Temperature (97.8 F-99.1 F) 97 F L 96.8 F L Temperature Source Temporal Temporal Pulse Rate (60-100) 63 77 Pulse Location Monitor Monitor Respiratory Rate (12-18) 18 16 Respiratory rate source Observation Observation Oxygen Delivery Method Room Air Blood Pressure (90/60-120/80) 125/57 H 104/47 L Blood Pressure Mean (mm Hg) 79 66 Source Monitor Monitor Position Sitting Blood Pressure Location Right Arm History Since Last Visit- (Skip if this is Patient's initial visit) Have you changed medications since your No No last visit? Any new allergies or adverse reactions No No Had a fall/change in ADL's that may No No increase risk of falls Signs or symptoms of abuse and/or No No neglect since last visit Have you been in the hospital since your No No last visit? Has dressing in place as prescribed Yes Yes Has compression in place as prescribed Yes Yes Has offloadiing in place as prescribed Yes N/A Experienced any changes in pain level or No No management Left Footwear Other Footwear (Comment) Right Footwear Slipper Other Footwear left leg in cast d/t fx Pain Scale: 0-10 Numeric Is Patient Pain Free? Yes No L LEG (CAST/FX) -Description Sharp -Intensity 9 -Duration (hours) Acute -Pain Behavior No Change in Behavior -Pain Aggravating Factors Sitting -Alleviating Factors/Interventions Distraction, Will continue to monitor, Patient denies need for intervention, Emotional Support -Comments PT STATES WILL TAKE PAIN MEDS UPON RETURN TO [facility] WC - Nurse 1 - General Ulcer Measurement Start: 12/13/22 09:39 Freq: Status: Active Protocol: Activity Type Activity Date Activity User E-sign Co-sign Detail Recorded Client Recorded Date Recorded By Document 12/13/22 09:39 [facility] [id number] 12/13/22 09:42 [facility] Document 12/20/22 09:48 [facility] [id number] 12/20/22 09:59 [facility] 12/13/22 12/20/22 09:39 09:48 Wound Center Nurse 1 #1 R Lat Ankle -Combined with other wound No -Current Size (cm) - Length 1.3 1.4 -Current Size (cm) - Width 1 1 -Current Size (cm) - Depth 0.2 0.3 -Total Square Cm 1.3 1.4 -Date of Last Picture (Recall this 12/20/22 field) -Photo Taken Yes Yes -Epithelialization None Present -Tunneling No -Undermining/Tunneling No -Circular Undermining No -Exudate Amt Medium Medium -Exudate Type Serosanguineous Serosanguineous -Wound Margin Distinct, Distinct, Outline Outline Attached Attached -Granulation Amt Large (67-100%) Medium (34-66%) -Granulation Quality Red Red -Slough/Fibrin Yes -Necrosis Amt Small (1-33%) Medium (34-66%) -Necrotic Tissue Type Adherent Slough Adherent Slough -Structure Exposed N/A -Texture (Lori-wound Skin Appearance) Scarring Assessed, Scarring -Moisture (Lori-wound Skin Appearance) Maceration Assessed,Dry/ Scaly -Color (Lori-wound Skin Appearance) Hemosiderin Assessed Staining -Temperature (Lori-wound Skin No Abnormality No Abnormality Appearance) (Pt Warm) (Pt Warm) -Tenderness on Palpation (Lori-wound No No Skin Appearance) -Ulcer Cleansing Soap and Water Soap and Water -Foul Odor after Cleansing No No -Anesthetic Used 5% Lidocaine 5% Lidocaine Gel Gel Lower Limb Edema Present Yes Right Calf (cm) 38.1 36.4 Right Ankle (cm) 28.5 22.5 WC - Nurse 2 - General Ulcer CM Notes Start: 12/13/22 09:39 Freq: Status: Active Protocol: Activity Type Activity Date Activity User E-sign Co-sign Detail Recorded Client Recorded Date Recorded By Document 12/13/22 09:53 MW [id number] 12/13/22 10:02 MW Document 12/20/22 10:48 MW [id number] 12/20/22 10:58 MW 12/13/22 12/20/22 09:53 10:48 Wound Center Nurse 2 #1 R Lat Ankle -Time 09:58 10:49 -Correct Patient Yes Yes -Correct Side, Site, Position Yes Yes -Correct Procedure Yes Yes -Procedure Performed Yes Yes -Type of Procedure Debridement Debridement -Clinical Debridement Subcutaneous Subcutaneous -Tissue Removed Subcutaneous Subcutaneous -Post Debridement (cm) - Length 1.5 -Post Debridement (cm) - Width 0.9 -Post Debridement (cm) - Depth 0.2 -Total Square (Post) (cm) 1.35 -Area of Debridement (cm) - Length 1.5 -Area of Debridement (cm) - Width 1.5 -Total Square (Area) (cm) 2.25 -Tunneling No No -Undermining/Tunneling No No -Circular Undermining No No -Wound/Ulcer Outcome Not Healed Not Healed -Ulcer Cleansing Rinsed/ Rinsed/ Irrigated with Irrigated with Saline Saline -Foul Odor after Cleansing No No -Bioengineered Tissue Yes Yes -Type of Bioengineered Tissue Epifix 18mm Epifix 18mm Disc Disc -Expiration Date 09/13/27 10/14/27 -Product Lot Number [id number] -Percent Used 100 100 -Lot number of Saline Used [id number] -Bleeding Controlled with Pressure Pressure -Treatment Response Procedure Procedure Tolerated Well Tolerated Well -Offloading No No -Debridement - Subq, 1st 20sq cm No No -Apply Skin Sub - 1st 25 sq cm - Legs 1 1 -Epifix 18mm Disc 3 3 Pain Scale: 0-10 Numeric Is Patient Pain Free? Yes Yes - Nurse 3 - General Ulcer D/C NN Start: 12/13/22 09:39 Freq: Status: Active Protocol: Activity Type Activity Date Activity User E-sign Co-sign Detail Recorded Client Recorded Date Recorded By Document 12/13/22 10:17 DL [id number] 12/13/22 10:18 DL Document 12/20/22 11:45 DL [id number] 12/20/22 11:46 DL 12/13/22 12/20/22 10:17 11:45 Wound Care Center Nurse 3 #1 R Lat Ankle -Foul Odor after Cleansing No No -Other Dressing Epimesh -Primary Dressing Covered/Secured with Dry Gauze Dry Gauze Right -Multi-Layered Wrap Application Multi-Layer Multi-Layer Comp - Right ($ Comp - Right ($ ) ) Treatment Response Procedure Procedure Tolerated Well Tolerated Well Pain Scale: 0-10 Numeric Is Patient Pain Free? Yes Yes WC - Visit Discharge Discharge Condition Stable Stable Ambulatory Status Wheelchair Wheelchair Transportation Private Auto Private Auto Facility Type [facility] Facility Orders Sent Yes Yes Assessment/Plan Assessment/Plan (1) 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: CODE(S): L97.312 - Non-pressure chronic ulcer of right ankle with fat layer exposed (2) Insulin dependent diabetes mellitus: (3) Tobacco abuse: CODE(S): Z72.0 - Tobacco use PLAN: Plan Debridement done as documented above, procedure was well-tolerated. 4th application of EpiFix done using 100% of product. Moistened with saline, covered with Adaptic touch and secured with Steri-Strips. Leave dressing in place for a week. May change outer dressing if needed. Continue 3M wrap for edema management, change on Saturday at the facility. Prealbumin is low, recommendprotein supplements twice daily. Also referred to Vascular surgery due to mild PAD on the right. Her questions were answered and she was advised to call with any further questions or concerns. Follow-up in a week or sooner if needed. This note was generated with [employer] software. It may contain incorrectwords, spelling, and punctuation that were not noted in checking the note beforesigning. 12/20/22 1233 <Electronically signed by Chilango Laughlin MD> Cosigner Signature (if applicable): CC: ~ Signed [facility] Work Phone: 1(432) 934-267406-01-2023 Progress note Author Chilango Laughlin [facility] December 13, 2022 10:30am Note Date/Time December 13, 2022 10:19 am [facility] [address] [place] [address] Progress Note - Wound Care 12/13/22 1017 MR#: [id number] Acct: [id number] Name: JULIANA MERIDA Rep #:[id number] : 1960 62 From: Chilango joy MD PCP: Bianca Palomares MD Status:REG RCR Location: History of Present Illness Date of Service: 12/13/22 Chief Complaint: Non healing right ankle ulcer History of Wound: Ms. Merida is a 62-year-old who was referred to this facility due to nonhealing right lateral ankle ulcer. Noted a year ago, started out as abullae and subsequently opened up. She states that over the years, she has had alginate and collagen dressings done at her facility without any significant improvement. History of diabetes mellitus, she is not sure of her most recent A1c but states that it has ranged from 8-13. Also history of tobacco use, smokes daily. There is significant pain around the ulcer but she denies otherwise significant leg pain. Does not wear compression. Sleep sedentary butsleeps in the bed. She feels well otherwise, no chills, fever, nausea, vomitingor change in bowel habit reported. Progress of Wound: Has had two Epifix applications so far. No new concerns at this time. Right lower extremity edema. Objective Data Objective Data Vital Signs: Vital Signs Temp Pulse Resp BP 97 F L 63 18 125/57 H 12/13/22 09:39 12/13/22 09:39 12/13/22 09:39 12/13/22 09:39 Charges/Coding Procedures Integumentary 150xxx-152xx: 01753 Skin sub graft trnk/arm/leg Physical Exam Const alert, oriented x3 and no apparent distress General Appearance: cooperative, comfortable and well kempt HEENT normocephalic and head/scalp atraumatic Eyes EOMs intact bilaterally General Eye: normal appearance of both eyes Neck full ROM and supple General: normal visual inspection Resp normal respiratory effort Effort and Inspection: able to speak in complete sentences Extremity General Extremity: edema Skin Wounds: wounds noted Neuro oriented x3, CN's II-XII intact bilaterally and moves all extremities Psych mental status grossly normal, thought process normal, cooperative and affect normal Debridement Note Debridement Note Wound debrided: Right lateral foot/ankle Type of Debridement: Excisional debridement Anesthesia Used: 5% Lidocaine Gel Depth: Down to and including healthy tissue and in the subcutaneous layer Percentage of wound debrided: 100 Instrument Used: 5mm curette Tissue Removed: Slough and devitalized tissue Severity: Fat Layer Exposed Amount of bleeding with debridement: Mild Bleeding Controlled with: Pressure Patient tolerated procedure: Patient tolerated procedure well Post-Debridement Measurements and Additional Note: Post-Debridement Measurements/Treatment - Nurse 1 - General Ulcer Assessment Start: 12/13/22 09:39 Freq: Status: Active Protocol: CLOVIS Activity Type Activity Date Activity User E-sign Co-sign Detail Recorded Client Recorded Date Recorded By Document 12/13/22 09:39 [facility] [id number] 12/13/22 09:42 [facility] 12/13/22 09:39 - Today's Visit Information Type of service 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 ) Arrival Mode Wheelchair Transfer Assistance None Patient Identification Verified (Name & Yes ) Patient Requires Transmission-Based No Precautions Finger Stick Blood Sugar(mg/dl) (if 146 indicated): Blood Sugar Stated by Patient Vital Signs Temperature (97.8 F-99.1 F) 97 F L Temperature Source Temporal Pulse Rate (60-100) 63 Pulse Location Monitor Respiratory Rate (12-18) 18 Respiratory rate source Observation Blood Pressure (90/60-120/80) 125/57 H Blood Pressure Mean (mm Hg) 79 Source Monitor History Since Last Visit- (Skip if this is Patient's initial visit) Have you changed medications since your No last visit? Any new allergies or adverse reactions No Had a fall/change in ADL's that may No increase risk of falls Signs or symptoms of abuse and/or No neglect since last visit Have you been in the hospital since your No last visit? Has dressing in place as prescribed Yes Has compression in place as prescribed Yes Has offloadiing in place as prescribed Yes Experienced any changes in pain level or No management Pain Scale: 0-10 Numeric Is Patient Pain Free? Yes WC - Nurse 1 - General Ulcer Measurement Start: 12/13/22 09:39 Freq: Status: Active Protocol: Activity Type Activity Date Activity User E-sign Co-sign Detail Recorded Client Recorded Date Recorded By Document 12/13/22 09:39 [facility] [id number] 12/13/22 09:42 [facility] 12/13/22 09:39 Wound Center Nurse 1 #1 R Lat Ankle -Current Size (cm) - Length 1.3 -Current Size (cm) - Width 1 -Current Size (cm) - Depth 0.2 -Total Square Cm 1.3 -Photo Taken Yes -Exudate Amt Medium -Exudate Type Serosanguineous -Wound Margin Distinct, Outline Attached -Granulation Amt Large (67-100%) -Granulation Quality Red -Necrosis Amt Small (1-33%) -Necrotic Tissue Type Adherent Slough -Structure Exposed N/A -Texture (Lori-wound Skin Appearance) Scarring -Moisture (Lori-wound Skin Appearance) Maceration -Color (Lori-wound Skin Appearance) Hemosiderin Staining -Temperature (Lori-wound Skin No Abnormality Appearance) (Pt Warm) -Tenderness on Palpation (Lori-wound No Skin Appearance) -Ulcer Cleansing Soap and Water -Foul Odor after Cleansing No -Anesthetic Used 5% Lidocaine Gel Right Calf (cm) 38.1 Right Ankle (cm) 28.5 WC - Nurse 2 - General Ulcer CM Notes Start: 12/13/22 09:39 Freq: Status: Active Protocol: Activity Type Activity Date Activity User E-sign Co-sign Detail Recorded Client Recorded Date Recorded By Document 12/13/22 09:53 [id number] 12/13/22 10:02 MW 12/13/22 09:53 Wound Center Nurse 2 #1 R Lat Ankle -Time 09:58 -Correct Patient Yes -Correct Side, Site, Position Yes -Correct Procedure Yes -Procedure Performed Yes -Type of Procedure Debridement -Clinical Debridement Subcutaneous -Tissue Removed Subcutaneous -Post Debridement (cm) - Length 1.5 -Post Debridement (cm) - Width 0.9 -Post Debridement (cm) - Depth 0.2 -Total Square (Post) (cm) 1.35 -Area of Debridement (cm) - Length 1.5 -Area of Debridement (cm) - Width 1.5 -Total Square (Area) (cm) 2.25 -Tunneling No -Undermining/Tunneling No -Circular Undermining No -Wound/Ulcer Outcome Not Healed -Ulcer Cleansing Rinsed/ Irrigated with Saline -Foul Odor after Cleansing No -Bioengineered Tissue Yes -Type of Bioengineered Tissue Epifix 18mm Disc -Expiration Date 09/13/27 -Product Lot Number [id number] -Percent Used 100 -Lot number of Saline Used [id number] -Bleeding Controlled with Pressure -Treatment Response Procedure Tolerated Well -Offloading No -Debridement - Subq, 1st 20sq cm No -Apply Skin Sub - 1st 25 sq cm - Legs 1 -Epifix 18mm Disc 3 Pain Scale: 0-10 Numeric Is Patient Pain Free? Yes Assessment/Plan Assessment/Plan (1) 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: CODE(S): L97.312 - Non-pressure chronic ulcer of right ankle with fat layer exposed (2) Insulin dependent diabetes mellitus: (3) Tobacco abuse: CODE(S): Z72.0 - Tobacco use PLAN: Plan Debridement done as documented above, procedure was well-tolerated. 3rd application of EpiFix done using 100% of product. Moistened with saline, covered with Adaptic touch and secured with Steri-Strips. Leave dressing in place for a week. May change outer dressing if needed. 3M wrap for edema management, change on Saturday at the facility. Prealbumin is low, recommend protein supplements twice daily. Her questions were answered and she was advised to call with any further questions or concerns. Follow-up in a week or sooner if needed. This note was generated with [employer] dictation software. It may contain incorrectwords, spelling, and punctuation that were not noted in checking the note beforesigning. 12/13/22 1030 <Electronically signed by Chilango Laughlin MD> Cosigner Signature (if applicable): CC: ~ Signed [facility] Work Phone: 1(166) 433-618905-25-[address] Laughlin [facility] December 06, 2022 10:40am Note Date/Time December 06, 2022 10:40 am [facility] [address] [place] [address] Progress Note - Wound Care 12/06/22 1038 MR#: [id number] Acct: [id number] Name: JULIANA MERIDA Rep #:[id number] : 1960 62 From: Chilango joy MD PCP: Bianca Palomares MD Status:REG RCR Location: History of Present Illness Date of Service: 12/06/22 Chief Complaint: Non healing right ankle ulcer History of Wound: Ms. Merida is a 62-year-old who was referred to this facility due to nonhealing right lateral ankle ulcer. Noted a year ago, started out as abullae and subsequently opened up. She states that over the years, she has had alginate and collagen dressings done at her facility without any significant improvement. History of diabetes mellitus, she is not sure of her most recent A1c but states that it has ranged from 8-13. Also history of tobacco use, smokes daily. There is significant pain around the ulcer but she denies otherwise significant leg pain. Does not wear compression. Sleep sedentary butsleeps in the bed. She feels well otherwise, no chills, fever, nausea, vomitingor change in bowel habit reported. Progress of Wound: Has had 1 application of EpiFix. Improving. Objective Data Objective Data Vital Signs: Vital Signs Temp Pulse Resp BP 96.6 F L 73 18 122/72 H 12/06/22 09:36 12/06/22 09:36 12/06/22 09:36 12/06/22 09:36 Lab / Micro Data Micro: Microbiology 11/22/22 09:45 Wound Abcess - Ankle Gram Stain - Final 11/22/22 09:45 Wound Abcess - Ankle Wound Culture - Final Klebsiella pneumoniae sp pneum Proteus mirabilis 11/22/22 09:45 Wound Abcess - Ankle Anaerobic Culture - Final No anaerobic bacteria isolated. Charges/Coding Procedures Integumentary 150xxx-152xx: 78420 Skin sub graft trnk/arm/leg Physical Exam Const alert, oriented x3 and no apparent distress General Appearance: cooperative, comfortable and well kempt HEENT normocephalic and head/scalp atraumatic Eyes EOMs intact bilaterally General Eye: normal appearance of both eyes Neck full ROM and supple General: normal visual inspection Resp normal respiratory effort Effort and Inspection: able to speak in complete sentences Extremity General Extremity: edema Skin Wounds: wounds noted Neuro oriented x3, CN's II-XII intact bilaterally and moves all extremities Psych mental status grossly normal, thought process normal, cooperative and affect normal Debridement Note Debridement Note Wound debrided: Right lateral foot/ankle Type of Debridement: Excisional debridement Anesthesia Used: 5% Lidocaine Gel Depth: Down to and including healthy tissue and in the subcutaneous layer Percentage of wound debrided: 100 Instrument Used: 5mm curette Tissue Removed: Slough and devitalized tissue Severity: Fat Layer Exposed Amount of bleeding with debridement: Mild Bleeding Controlled with: Pressure Patient tolerated procedure: Patient tolerated procedure well Post-Debridement Measurements and Additional Note: Post-Debridement Measurements/Treatment - Nurse 1 - General Ulcer Assessment Start: 11/22/22 08:59 Freq: Status: Active Protocol: CLOVIS Activity Type Activity Date Activity User E-sign Co-sign Detail Recorded Client Recorded Date Recorded By Document 11/22/22 08:59 DL [id number] 11/22/22 09:12 Document 11/29/22 09:28 [facility] [id number] 11/29/22 09:43 [facility] Document 12/06/22 09:36 DL [id number] 12/06/22 09:46 DL 11/22/22 11/29/22 12/06/22 08:59 09:28 09:36 - Today's Visit Information Type of service Initial Visit Follow-up Visit 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 (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 ) ) Arrival Mode Wheelchair Wheelchair Wheelchair Transfer Assistance Manual Other Manual Transfer Assist (Other) x1 2 x1 Patient Identification Verified (Name & Yes Yes Yes ) Patient Requires Transmission-Based No No No Precautions Finger Stick Blood Sugar(mg/dl) (if 172 300 indicated): Blood Sugar Stated by Stated by Patient Patient Vital Signs Temperature (97.8 F-99.1 F) 97.7 F L 96.6 F L Temperature Source Temporal Temporal Pulse Rate (60-100) 77 77 73 Pulse Location Monitor Monitor Monitor Respiratory Rate (12-18) 20 H 18 Respiratory rate source Observation Observation Blood Pressure (90/60-120/80) 115/58 L 98/46 L 122/72 H Blood Pressure Mean (mm Hg) 77 63 88 Source Monitor Monitor Monitor Position Sitting Blood Pressure Location Right Arm History Since Last Visit- (Skip if this is Patient's initial visit) Have you changed medications since your No No last visit? Any new allergies or adverse reactions No No Had a fall/change in ADL's that may No No increase risk of falls Signs or symptoms of abuse and/or No No neglect since last visit Have you been in the hospital since your No No last visit? Has dressing in place as prescribed Yes Yes Has compression in place as prescribed Yes Yes Has offloadiing in place as prescribed N/A Yes Experienced any changes in pain level or No No management Left Footwear Slipper Right Footwear Slipper Pain Scale: 0-10 Numeric Is Patient Pain Free? Yes Yes Yes Lower Extremity Assessment/ Foot Assessment/ Toe Nail Assessment Left -Posterior Tibial Palpable Yes -Dorsalis Pedis Palpable Yes -Extremity Color Hyperpigmented -Hair Growth on Legs No -Hair Growth on Toes No -Temperature of Extremity Warm -Capillary Refill Greater than 3 Seconds -Dependent Rubor No -Blanched when Elevated No -Lipodermatosclerosis No -Other Deformity No -Prior Foot Ulcer No -Charcot Joint No -Prior Amputation No -Thick Yes -Discolored Yes -Deformed No -Improper Length & Hygeine No Right -Posterior Tibial Palpable Yes -Dorsalis Pedis Palpable Yes -Extremity Color Hyperpigmented -Hair Growth on Legs No -Hair Growth on Toes No -Temperature of Extremity Warm -Capillary Refill Greater than 3 Seconds -Dependent Rubor No -Blanched when Elevated No -Lipodermatosclerosis No -Other Deformity No -Prior Foot Ulcer No -Charcot Joint No -Prior Amputation No -Thick No -Discolored Yes -Deformed No -Improper Length & Hygeine No Communication Assessment Preferred language Belizean Able to Read Yes Able to Write Yes Communication Tools None Right Hearing Abillity Normal Left Hearing Abillity Normal Visual Assistive Devices Glasses Teaching Assessment Preferences Verbal,Written, Demonstration Barriers to Learning None Readiness To Learn Fair Willingness to Engage in Self Management Med Activies Readiness to Engage in Self Management Med Activities Anxiety Level Calm Cooperation Cooperative Perception Coherent Interest in Health Problem Asks Questions Education Importance Acknowledges Need Does Patient Smoke tobacco or other Yes substances Smoking Status Current every day smoker Is Patient Diabetic Yes Functional Assessment Recent Decline in Ability to Perform Denies Any Declines Culture/Zoroastrianism/Clinical Appeals Rn Cultural/Zoroastrianism Needs that may affect No Treatment Plan Would you allow our hospital photolithographer to No meet you for the purpose of spiritual/ emotional support? Clinical Appeals Rn to contact place of religious No Teaching: Wound Center Discharge Instructions -Person Taught Patient Dressing Your Wound -Person Taught Patient *Welcome to the Wound Center -Person Taught Patient WC - Nurse 1 - General Ulcer Measurement Start: 11/22/22 08:59 Freq: Status: Active Protocol: Activity Type Activity Date Activity User E-sign Co-sign Detail Recorded Client Recorded Date Recorded By Document 11/22/22 08:59 DL [id number] 11/22/22 09:12 DL Document 11/29/22 09:28 [facility] [facility] [id number] 11/29/22 09:43 BMF Document 12/06/22 09:36 DL [id number] 12/06/22 09:46 DL 11/22/22 11/29/22 12/06/22 08:59 09:28 09:36 Wound Center Nurse 1 #1 R Lat Ankle -Combined with other wound No -Current Size (cm) - Length 1.8 1.6 1.7 -Current Size (cm) - Width 1.8 1.6 1.3 -Current Size (cm) - Depth 0.5 0.3 0.2 -Total Square Cm 3.24 2.56 2.21 -Date of Last Picture (Recall this 11/29/22 field) -Photo Taken Yes Yes Yes -Epithelialization None Present -Tunneling No -Undermining/Tunneling No -Circular Undermining No -Classification - Thickness Full Thickness without Exposed Support Structure -Exudate Amt Medium Medium Small -Exudate Type Serosanguineous Serosanguineous Serosanguineous -Wound Margin Thickened Distinct, Distinct, Outline Outline Attached Attached -Granulation Amt Large (67-100%) Medium (34-66%) Large (67-100%) -Granulation Quality Red Red Pale,[place] -Slough/Fibrin Yes -Necrosis Amt Small (1-33%) Medium (34-66%) Small (1-33%) -Necrotic Tissue Type Adherent Slough Adherent Slough Adherent Slough -Structure Exposed N/A N/A -Texture (Lori-wound Skin Appearance) Scarring Assessed, Scarring Scarring -Moisture (Lori-wound Skin Appearance) Maceration Assessed, No Abnormality Maceration -Color (Lori-wound Skin Appearance) No Abnormality Assessed Hemosiderin Staining -Temperature (Lori-wound Skin No Abnormality No Abnormality No Abnormality Appearance) (Pt Warm) (Pt Warm) (Pt Warm) -Tenderness on Palpation (Lori-wound No Yes No Skin Appearance) -Ulcer Cleansing Soap and Water Soap and Water Soap and Water -Foul Odor after Cleansing No No No -Anesthetic Used 5% Lidocaine 5% Lidocaine 5% Lidocaine Gel Gel Gel Lower Limb Edema Present Yes Right Calf (cm) 39 38.2 38 Right Ankle (cm) 25.5 24.8 24 Left Calf (cm) 39.5 Left Ankle (cm) 23 WC - Nurse 2 - General Ulcer CM Notes Start: 11/22/22 08:59 Freq: Status: Active Protocol: Activity Type Activity Date Activity User E-sign Co-sign Detail Recorded Client Recorded Date Recorded By Document 11/22/22 09:38 MW [id number] 11/22/22 09:48 MW Document 11/29/22 09:52 [id number] 11/29/22 10:00 JF Document 12/06/22 10:26 MW [id number] 12/06/22 10:37 MW 11/22/22 11/29/22 12/06/22 09:38 09:52 10:26 Wound Center Nurse 2 #1 R Lat Ankle -Time 09:40 09:52 10:33 -Correct Patient Yes Yes Yes -Correct Side, Site, Position Yes Yes Yes -Correct Procedure Yes Yes Yes -Procedure Performed Yes Yes Yes -Type of Procedure Debridement Debridement Debridement -Clinical Debridement Subcutaneous Subcutaneous Subcutaneous -Tissue Removed Subcutaneous Subcutaneous Subcutaneous -Post Debridement (cm) - Length 2.0 2.0 1.5 -Post Debridement (cm) - Width 2.0 1.5 1.1 -Post Debridement (cm) - Depth 0.1 0.2 0.2 -Total Square (Post) (cm) 4.00 3.00 1.65 -Area of Debridement (cm) - Length 2.0 2.0 1.5 -Area of Debridement (cm) - Width 2.0 1.5 1.1 -Total Square (Area) (cm) 4.00 3.00 1.65 -Tunneling No No No -Undermining/Tunneling No No No -Circular Undermining No No No -Wound/Ulcer Outcome Not Healed Not Healed Not Healed -Ulcer Cleansing Rinsed/ Rinsed/ Rinsed/ Irrigated with Irrigated with Irrigated with Saline Saline Saline -Foul Odor after Cleansing No No No -Bioengineered Tissue No Yes Yes -Type of Bioengineered Tissue Epifix Epifix -Expiration Date 06/14/27 08/15/27 -Product Lot Number [id number] -Percent Used 100 100 -Lot number of Saline Used [id number] -Bleeding Controlled with Pressure Pressure Pressure -Treatment Response Procedure Procedure Procedure Tolerated Well Tolerated Well Tolerated Well -Offloading No No No -Debridement - Subq, 1st 20sq cm Yes No No -Apply Skin Sub - 1st 25 sq cm - Legs 1 -Apply Skin Sub - 1st 25 sq cm - Feet 1 -Epifix (per sq cm) 4 4 Pain Scale: 0-10 Numeric Is Patient Pain Free? Yes Yes Yes - Nurse 3 - General Ulcer D/C NN Start: 11/22/22 08:59 Freq: Status: Active Protocol: Activity Type Activity Date Activity User E-sign Co-sign Detail Recorded Client Recorded Date Recorded By Document 11/22/22 10:16 [id number] 11/22/22 10:17 RB Document 11/29/22 10:09 [facility] [id number] 11/29/22 10:10 [facility] 11/22/22 11/29/22 10:16 10:09 Wound Care Center Nurse 3 #1 R Lat Ankle -Ulcer Cleansing Rinsed/ Irrigated with Saline -Primary Dressing Applied NonAdherent Mepilex Border Contact Layer, Promogran, Mepilex Border -Other Dressing EPIFIX -Mepilex Border 1 1 -Promogran 1 Right -Tubular Bandage Single Layer -Size of Tubigrip Used Size D Size D -Size D ($) 1 1 Treatment Response Procedure Procedure Tolerated Well Tolerated Well Pain Scale: 0-10 Numeric Is Patient Pain Free? 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 Second application of EpiFix done using 100% of product. Moistened with saline, covered with Adaptic touch and secured with Steri-Strips. Leave dressing in place for a week. May change outer dressing if needed. Prealbumin is low, recommend protein supplements twice daily. Her questions were answered and she was advised to call with any further questions or concerns. Follow-up in a weekor sooner if needed. This note was generated with [employer] software. It may contain incorrectwords, spelling, and punctuation that were not noted in checking the note beforesigning. 12/06/22 1040 <Electronically signed by Chilango Laughlin MD> Cosigner Signature (if applicable): CC: ~ Signed [facility] Work Phone: [phone] 436-143505-18-[address] Laughlin [facility] November 29, 2022 1:11pm Note Date/Time November 29, 2022 1:11p [facility] [address] [place] [id number] Progress Note - Wound Care 11/29/22 1302 MR#: [id number] Acct: [id number] Name: JULIANA MERIDA YANELI Rep #:[id number] : 1960 62 From: Chilango joy MD PCP: Bianca Palomares MD Status:REG RCR Location: History of Present Illness Date of Service: 11/29/22 Chief Complaint: Non healing right ankle ulcer History of Wound: Ms. Merida is a 62-year-old who was referred to this facility due to nonhealing right lateral ankle ulcer. Noted a year ago, started out as abullae and subsequently opened up. She states that over the years, she has had alginate and collagen dressings done at her facility without any significant improvement. History of diabetes mellitus, she is not sure of her most recent A1c but states that it has ranged from 8-13. Also history of tobacco use, smokes daily. There is significant pain around the ulcer but she denies otherwise significant leg pain. Does not wear compression. Sleep sedentary butsleeps in the bed. She feels well otherwise, no chills, fever, nausea, vomitingor change in bowel habit reported. Progress of Wound: No acute concerns at this time. Now approved for EpiFix. Objective Data Objective Data Vital Signs: Vital Signs Temp Pulse Resp BP 97.7 F L 77 20 H 98/46 L 11/22/22 08:59 11/29/22 09:28 11/22/22 08:59 11/29/22 09:28 Lab / Micro Data Micro: Microbiology 11/22/22 09:45 Wound Abcess - Ankle Gram Stain - Final 11/22/22 09:45 Wound Abcess - Ankle Wound Culture - Final Klebsiella pneumoniae sp pneum Proteus mirabilis 11/22/22 09:45 Wound Abcess - Ankle Anaerobic Culture - Final No anaerobic bacteria isolated. Charges/Coding Procedures Integumentary 150xxx-152xx: [id number] Skin sub graft trnk/arm/leg Physical Exam Const alert, oriented x3 and no apparent distress General Appearance: cooperative, comfortable and well kempt HEENT normocephalic and head/scalp atraumatic Eyes EOMs intact bilaterally General Eye: normal appearance of both eyes Neck full ROM and supple General: normal visual inspection Resp normal respiratory effort Effort and Inspection: able to speak in complete sentences Extremity General Extremity: edema Skin Wounds: wounds noted Neuro oriented x3, CN's II-XII intact bilaterally and moves all extremities Psych mental status grossly normal, thought process normal, cooperative and affect normal Debridement Note Debridement Note Wound debrided: Right lateral foot/ankle Type of Debridement: Excisional debridement Anesthesia Used: 5% Lidocaine Gel Depth: Down to and including healthy tissue and in the subcutaneous layer Percentage of wound debrided: 100 Instrument Used: 5mm curette Tissue Removed: Slough and devitalized tissue Severity: Fat Layer Exposed Amount of bleeding with debridement: Mild Bleeding Controlled with: Pressure Patient tolerated procedure: Patient tolerated procedure well Post-Debridement Measurements and Additional Note: Post-Debridement Measurements/Treatment WC - Nurse 1 - General Ulcer Assessment Start: 11/22/22 08:59 Freq: Status: Active Protocol: CLOVIS Activity Type Activity Date Activity User E-sign Co-sign Detail Recorded Client Recorded Date Recorded By Document 11/22/22 08:59 DL [id number] 11/22/22 09:12 DL Document 11/29/22 09:28 BMF [id number] 11/29/22 09:43 BMF 11/22/22 11/29/22 08:59 09:28 WC - Today's Visit Information Type of service Initial Visit 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 ) Arrival Mode Wheelchair Wheelchair Transfer Assistance Manual Other Transfer Assist (Other) x1 2 Patient Identification Verified (Name & Yes Yes ) Patient Requires Transmission-Based No No Precautions Finger Stick Blood Sugar(mg/dl) (if 172 indicated): Blood Sugar Stated by Patient Vital Signs Temperature (97.8 F-99.1 F) 97.7 F L Temperature Source Temporal Pulse Rate (60-100) 77 77 Pulse Location Monitor Monitor Respiratory Rate (12-18) 20 H Respiratory rate source Observation Blood Pressure (90/60-120/80) 115/58 L 98/46 L Blood Pressure Mean (mm Hg) 77 63 Source Monitor Monitor Position Sitting Blood Pressure Location Right Arm History Since Last Visit- (Skip if this is Patient's initial visit) Have you changed medications since your No last visit? Any new allergies or adverse reactions No Had a fall/change in ADL's that may No increase risk of falls Signs or symptoms of abuse and/or No neglect since last visit Have you been in the hospital since your No last visit? Has dressing in place as prescribed Yes Has compression in place as prescribed Yes Has offloadiing in place as prescribed N/A Experienced any changes in pain level or No management Left Footwear Slipper Right Footwear Slipper Pain Scale: 0-10 Numeric Is Patient Pain Free? Yes Yes Lower Extremity Assessment/ Foot Assessment/ Toe Nail Assessment Left -Posterior Tibial Palpable Yes -Dorsalis Pedis Palpable Yes -Extremity Color Hyperpigmented -Hair Growth on Legs No -Hair Growth on Toes No -Temperature of Extremity Warm -Capillary Refill Greater than 3 Seconds -Dependent Rubor No -Blanched when Elevated No -Lipodermatosclerosis No -Other Deformity No -Prior Foot Ulcer No -Charcot Joint No -Prior Amputation No -Thick Yes -Discolored Yes -Deformed No -Improper Length & Hygeine No Right -Posterior Tibial Palpable Yes -Dorsalis Pedis Palpable Yes -Extremity Color Hyperpigmented -Hair Growth on Legs No -Hair Growth on Toes No -Temperature of Extremity Warm -Capillary Refill Greater than 3 Seconds -Dependent Rubor No -Blanched when Elevated No -Lipodermatosclerosis No -Other Deformity No -Prior Foot Ulcer No -Charcot Joint No -Prior Amputation No -Thick No -Discolored Yes -Deformed No -Improper Length & Hygeine No Communication Assessment Preferred language Bel[place]an Able to Read Yes Able to Write Yes Communication Tools None Right Hearing Abillity Normal Left Hearing Abillity Normal Visual Assistive Devices Glasses Teaching Assessment Preferences Verbal,Written, Demonstration Barriers to Learning None Readiness To Learn Fair Willingness to Engage in Self Management Med Activies Readiness to Engage in Self Management Med Activities Anxiety Level Calm Cooperation Cooperative Perception Coherent Interest in Health Problem Asks Questions Education Importance Acknowledges Need Does Patient Smoke tobacco or other Yes substances Smoking Status Current every day smoker Is Patient Diabetic Yes Functional Assessment Recent Decline in Ability to Perform Denies Any Declines Culture/Zoroastrianism/Clinical Appeals Rn Cultural/Zoroastrianism Needs that may affect No Treatment Plan Would you allow our hospital photolithographer to No meet you for the purpose of spiritual/ emotional support? Clinical Appeals Rn to contact place of religious No Teaching: Wound Center Discharge Instructions -Person Taught Patient Dressing Your Wound -Person Taught Patient *Welcome to the Wound Center -Person Taught Patient WC - Nurse 1 - General Ulcer Measurement Start: 11/22/22 08:59 Freq: Status: Active Protocol: Activity Type Activity Date Activity User E-sign Co-sign Detail Recorded Client Recorded Date Recorded By Document 11/22/22 08:59 DL [id number] 11/22/22 09:12 DL Document 11/29/22 09:28 [facility] [id number] 11/29/22 09:43 BM 11/22/22 11/29/22 08:59 09:28 Wound Center Nurse 1 #1 R Lat Ankle -Combined with other wound No -Current Size (cm) - Length 1.8 1.6 -Current Size (cm) - Width 1.8 1.6 -Current Size (cm) - Depth 0.5 0.3 -Total Square Cm 3.24 2.56 -Date of Last Picture (Recall this 11/29/22 field) -Photo Taken Yes Yes -Epithelialization None Present -Tunneling No -Undermining/Tunneling No -Circular Undermining No -Classification - Thickness Full Thickness without Exposed Support Structure -Exudate Amt Medium Medium -Exudate Type Serosanguineous Serosanguineous -Wound Margin Thickened Distinct, Outline Attached -Granulation Amt Large (67-100%) Medium (34-66%) -Granulation Quality Red Red -Slough/Fibrin Yes -Necrosis Amt Small (1-33%) Medium (34-66%) -Necrotic Tissue Type Adherent Slough Adherent Slough -Structure Exposed N/A -Texture (Lori-wound Skin Appearance) Scarring Assessed, Scarring -Moisture (Lori-wound Skin Appearance) Maceration Assessed, Maceration -Color (Lori-wound Skin Appearance) No Abnormality Assessed -Temperature (Lori-wound Skin No Abnormality No Abnormality Appearance) (Pt Warm) (Pt Warm) -Tenderness on Palpation (Lori-wound No Yes Skin Appearance) -Ulcer Cleansing Soap and Water Soap and Water -Foul Odor after Cleansing No No -Anesthetic Used 5% Lidocaine 5% Lidocaine Gel Gel Lower Limb Edema Present Yes Right Calf (cm) 39 38.2 Right Ankle (cm) 25.5 24.8 Left Calf (cm) 39.5 Left Ankle (cm) 23 WC - Nurse 2 - General Ulcer CM Notes Start: 11/22/22 08:59 Freq: Status: Active Protocol: Activity Type Activity Date Activity User E-sign Co-sign Detail Recorded Client Recorded Date Recorded By Document 11/22/22 09:38 MW [id number] 11/22/22 09:48 MW Document 11/29/22 09:52 [id number] 11/29/22 10:00 11/22/22 11/29/22 09:38 09:52 Wound Center Nurse 2 #1 R Lat Ankle -Time 09:40 09:52 -Correct Patient Yes Yes -Correct Side, Site, Position Yes Yes -Correct Procedure Yes Yes -Procedure Performed Yes Yes -Type of Procedure Debridement Debridement -Clinical Debridement Subcutaneous Subcutaneous -Tissue Removed Subcutaneous Subcutaneous -Post Debridement (cm) - Length 2.0 2.0 -Post Debridement (cm) - Width 2.0 1.5 -Post Debridement (cm) - Depth 0.1 0.2 -Total Square (Post) (cm) 4.00 3.00 -Area of Debridement (cm) - Length 2.0 2.0 -Area of Debridement (cm) - Width 2.0 1.5 -Total Square (Area) (cm) 4.00 3.00 -Tunneling No No -Undermining/Tunneling No No -Circular Undermining No No -Wound/Ulcer Outcome Not Healed Not Healed -Ulcer Cleansing Rinsed/ Rinsed/ Irrigated with Irrigated with Saline Saline -Foul Odor after Cleansing No No -Bioengineered Tissue No Yes -Type of Bioengineered Tissue Epifix -Expiration Date 06/14/27 -Product Lot Number [id number] -Percent Used 100 -Lot number of Saline Used [id number] -Bleeding Controlled with Pressure Pressure -Treatment Response Procedure Procedure Tolerated Well Tolerated Well -Offloading No No -Debridement - Subq, 1st 20sq cm Yes No -Apply Skin Sub - 1st 25 sq cm - Feet 1 -Epifix (per sq cm) 4 Pain Scale: 0-10 Numeric Is Patient Pain Free? Yes Yes - Nurse 3 - General Ulcer D/C NN Start: 11/22/22 08:59 Freq: Status: Active Protocol: Activity Type Activity Date Activity User E-sign Co-sign Detail Recorded Client Recorded Date Recorded By Document 11/22/22 10:16 [id number] 11/22/22 10:17 RB Document 11/29/22 10:09 [facility] [id number] 11/29/22 10:10 [facility] 11/22/22 11/29/22 10:16 10:09 Wound Care Center Nurse 3 #1 R Lat Ankle -Ulcer Cleansing Rinsed/ Irrigated with Saline -Primary Dressing Applied NonAdherent Mepilex Border Contact Layer, Promogran, Mepilex Border -Other Dressing EPIFIX -Mepilex Border 1 1 -Promogran 1 Right -Tubular Bandage Single Layer -Size of Tubigrip Used Size D Size D -Size D ($) 1 1 Treatment Response Procedure Procedure Tolerated Well Tolerated Well Pain Scale: 0-10 Numeric Is Patient Pain Free? Yes Yes WC - Visit Discharge Discharge Condition Stable Stable Ambulatory Status Ambulatory Wheelchair Transportation Private Auto ECF Medication Reconcilliation completed & No provided to patient/care provider Clinical Summary of Care Provided Yes Facility Type Usp Care Facility Assessment/Plan Assessment/Plan (1) 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: CODE(S): L97.312 - Non-pressure chronic ulcer of right ankle with fat layer exposed (2) Insulin dependent diabetes mellitus: (3) Tobacco abuse: CODE(S): Z72.0 - Tobacco use PLAN: Plan Debridement done as documented above, procedure was well-tolerated. Labs and cultures reviewed. Normal WBC, CRP and ESR. Cultures grew Proteus and Klebsiella sensitive to ciprofloxacin. Normal kidney function. Prescription for ciprofloxacin 500 mg twice daily for 1 week sent. Also now approved for EpiFix, does not appear clinically infected. Initial application of EpiFix doneusing 100% of product. Moistened with saline, covered with Adaptic touch and secured with Steri-Strips. Leave dressing in place for a week. May change outer dressing if needed. Prealbumin is low, recommend protein supplements twice daily. Her questions were answered and she was advised to call with any further questions or concerns. Follow-up in a week or sooner if needed. This note was generated with [employer] dictation software. It may contain incorrectwords, spelling, and punctuation that were not noted in checking the note beforesigning. 11/29/22 1311 <Electronically signed by Chilango Laughlin MD> Cosigner Signature (if applicable): CC: ~ Signed [facility] Work Phone: 1(503) 992-314905-12-2023 History and physical note Author Dr. Laughlin [facility] November 23, 2022 11:49am Note Date/Time November 22, 2022 1:34p m [facility] [address] [place] [id number] H&P Exam - Wound Care 11/22/22 1322 MR#: [id number] Acct: [id number] Name: JULIANA MERIDA YANELI Rep #:[id number] : 1960 62 From: Chilango joy MD PCP: Bianca Palomares MD Status:REG RCR Location: History of Present Illness Date of Service: 11/22/22 Chief Complaint: Non healing right ankle ulcer History of Wound: Ms. Merida is a 62-year-old who was referred to this facility due to nonhealing right lateral ankle ulcer. Noted a year ago, started out as abullae and subsequently opened up. She states that over the years, she has had alginate and collagen dressings done at her facility without any significant improvement. History of diabetes mellitus, she is not sure of her most recent A1c but states that it has ranged from 8-13. Also history of tobacco use, smokes daily. There is significant pain around the ulcer but she denies otherwise significant leg pain. Does not wear compression. Sleep sedentary butsleeps in the bed. She feels well otherwise, no chills, fever, nausea, vomitingor change in bowel habit reported. [facility] Medical History (Updated 11/22/22 @ 13:[address] Chilango Laughlin MD) Anxiety Cerebral vascular disease 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 Diabetes GERD (gastroesophageal reflux disease) Hyperlipidemia Hypertension Insomnia Insulin dependent diabetes mellitus Mild asthma Neuralgia and neuritis Schizoaffective disorder Schizophrenia Spondylosis Tobacco abuse Home Medications atorvastatin 80 mg tablet 80 mg PO QHS cholesterol 07/25/16 [History Last Taken 03/08/19 08:00] dulaglutide 1.5 mg/0.5 mL subcutaneous pen injector 4.5 mg SQ FR diabetes 07/25/16 [History Last Taken 03/06/19 08:00] amlodipine 5 mg tablet 5 mg PO DAILY blood pressure 03/08/19 [History Last Taken 03/08/19] duloxetine 60 mg capsule,delayed release 120 mg PO DAILY depression 03/08/19 [History Last Taken 03/08/19] formoterol fumarate 20 mcg/2 mL solution for nebulization 20 mcg inhalation BID cough 03/08/19 [History Last Taken 03/08/19 08:00] ondansetron HCl 4 mg tablet 4 mg PO Q6H PRN PRN Nausea 03/08/19 [History Last Taken Unknown] prazosin 1 mg capsule 1 mg PO QHS nightmares 03/08/19 [History Last Taken 03/07/19 20:00] Pregabalin 150 mg PO BID neuropathy 7 days ##14 03/11/19 [Rx Last Taken Unknown] oxycodone-acetaminophen 10 mg-325 mg tablet 1 tab PO 4X/DAY pain 7 days #28 tabs03/11/19 [Rx Last Taken Unknown] albuterol sulfate 2.5 mg/3 mL (0.083 %) solution for nebulization 2.5 mg inhalation Q4H PRN SOB 07/29/21 [History Last Taken Unknown] apixaban 5 mg tablet (Eliquis) 5 mg PO BID 07/29/21 [History Last Taken Unknown] cholecalciferol (vitamin D3) 50 mcg (2,000 unit) tablet (Vitamin D3) 50 mcg PO DAILY 07/29/21 [History Last Taken Unknown] cyclobenzaprine 10 mg tablet 10 mg PO DAILY 07/29/21 [History Last Taken Unknown] cyclosporine 0.05 % eye drops in a dropperette (Restasis) 1 drp EACH EYE Q12H 07/29/21 [History Last Taken Unknown] insulin aspart U-100 100 unit/mL (3 mL) subcutaneous pen unit subcut LUNCH 07/29/21 [History Last Taken Unknown] loperamide 2 mg capsule 2 mg PO Q4H PRN Diarrhea 07/29/21 [History Last Taken Unknown] lurasidone 80 mg tablet (Latuda) 80 mg PO DAILY 07/29/21 [History Last Taken Unknown] naloxegol 25 mg tablet (Movantik) 25 mg PO DAILY 07/29/21 [History Last Taken Unknown] ondansetron HCl 4 mg tablet 4 mg PO Q6H PRN NAUSEA 07/29/21 [History Last Taken Unknown] pantoprazole 40 mg tablet,delayed release 40 mg PO DAILY 07/29/21 [History Last Taken Unknown] quetiapine 400 mg tablet,extended release 24 hr (Seroquel XR) 400 mg PO QHS 07/29/21 [History Last Taken Unknown] quetiapine 50 mg tablet (Seroquel) 50 mg PO DAILY 07/29/21 [History Last Taken Unknown] zolpidem 10 mg tablet (Ambien) 10 mg PO QHS PRN Sleep 07/29/21 [History Last Taken Unknown] Allergy/AdvReac Type Severity Reaction Status Date / Time Iodinated Contrast Media Allergy Hives Verified 11/22/22 09:14 [Iodinated Contrast Media - IV Dye] amoxicillin trihydrate AdvReac Itching Verified 11/22/22 09:14 [From Augmentin] hydrocodone [From Vicodin] AdvReac Unknown Verified 11/22/22 09:14 potassium clavulanate AdvReac Itching Verified 11/22/22 09:14 [From Augmentin] prednisone AdvReac Unknown Verified 11/22/22 09:14 shellfish derived AdvReac Itching Verified 11/22/22 09:14 Surgical History S/P right rotator cuff repair Social History (Updated 04/08/19 @ 10:[address] Akil Francois, DO) Smoking Status: Current every day smoker tobacco type: cigarettes ROS Constitutional Constitutional: Denies chills, excessive sweating, fatigue, headache(s), increased appetite, night sweats, poor appetite or weakness Eyes Eyes: Denies change in vision, discharge from eye(s), discongugate gaze, excessive blinking, exophthalmos, loss of peripheral vision or nystagmus ENT HEENT: Denies dysphagia, ear discharge, ear pain, epistaxis, foreign body in nose, halitosis, headache(s), hearing loss or hoarseness Cardiovascular Cardiovascular: Reports leg ulcers; Denies bluish discoloration of hand/feet, chest pain, cyanosis, diaphoresis, dizziness, erythema on extremities, lightheadedness or pounding heartbeat Respiratory/Chest Respiratory/Chest: Denies difficulty clearing secretions, dusky skin, dyspnea, hemoptysis, hoarseness, inability to speak, mouth breathing, nail bed cyanosis or shortness of breath at rest Gastrointestinal Gastrointestinal: Denies change in bowel habits, chewing difficulty, coffee ground emesis, dry heaves or taste impaired Genitourinary Genitourinary: Denies abdominal discomfort, difficulty urinating, movement, flank pain, itching or urinary frequency Musculoskeletal Musculoskeletal: Denies muscle spasms, neck pain, radiating pain into limb, tingling or tremors Integumentary Integumentary: Reports skin ulcer; Denies erythema, furuncle, hirsutism, jaundice, nail changes, pruritus or skin swelling Neurologic Neurologic: Denies behavior changes, burning sensations, convulsions, disequilibrium, loss of vision or memory loss Psychiatric Psychiatric: Denies hallucinations, homicidal ideation, hopelessness, irritability, memory loss, suicidal ideation, tactile hallucinations or visual hallucinations Endocrine Endocrinology: Denies deepening of the voice, excessive sweating, heat intolerance, increase in ring/shoe/hat size or polydipsia Hematologic/Lymphatic Hematologic/Lymphatic: Denies lymphadenopathy Allergic/Immunologic Allergic/Immunologic: Denies itchy eyes, throat swelling, tongue swelling, urticaria, eczemia or wheezing Vital Signs Vital Signs Vital Signs: 11/22/22 08:59 Temperature 97.7 F L Temperature Source Temporal Pulse Rate 77 Respiratory Rate 20 H Blood Pressure 115/58 L Blood Pressure Mean 77 Blood Pressure Source Monitor Physical Exam Const alert, oriented x3 and no apparent distress General Appearance: cooperative, comfortable and well kempt HEENT normocephalic and head/scalp atraumatic Eyes EOMs intact bilaterally General Eye: normal appearance of both eyes Neck full ROM and supple General: normal visual inspection Resp normal respiratory effort and normal air movement Effort and Inspection: able to speak in complete sentences Cardio regular rate, regular rhythm, S1 normal heart sound and S2 normal heart sound GI soft to palpation and non-tender Extremity General Extremity: edema Skin Wounds: wounds noted Neuro oriented x3, CN's II-XII intact bilaterally and moves all extremities Psych mental status grossly normal, thought process normal, cooperative and affect normal Debridement Note Debridement Note Wound debrided: Right lateral ankle Type of Debridement: Excisional debridement Anesthesia Used: 5% Lidocaine Gel Depth: Down to and including healthy tissue and in the subcutaneous layer Percentage of wound debrided: 100 Instrument Used: 5mm curette Tissue Removed: Slough and devitalized tissue Severity: Fat Layer Exposed Amount of bleeding with debridement: Mild Bleeding Controlled with: Pressure Post-Debridement Measurements and Additional Note: Post-Debridement Measurements/Treatment - Nurse 1 - General Ulcer Assessment Start: 11/22/22 08:59 Freq: Status: Active Protocol: CLOVIS Activity Type Activity Date Activity User E-sign Co-sign Detail Recorded Client Recorded Date Recorded By Document 11/22/22 08:59 RAMYA [id number] 11/22/22 09:12 DL 11/22/22 08:59 - Today's Visit Information Type of service Initial Visit Arrival Mode Wheelchair Transfer Assistance Manual Transfer Assist (Other) x1 Patient Identification Verified (Name & Yes ) Patient Requires Transmission-Based No Precautions Vital Signs Temperature (97.8 F-99.1 F) 97.7 F L Temperature Source Temporal Pulse Rate (60-100) 77 Pulse Location Monitor Respiratory Rate (12-18) 20 H Respiratory rate source Observation Blood Pressure (90/60-120/80) 115/58 L Blood Pressure Mean 77 Source Monitor Pain Scale: 0-10 Numeric Is Patient Pain Free? Yes Lower Extremity Assessment/ Foot Assessment/ Toe Nail Assessment Left -Posterior Tibial Palpable Yes -Dorsalis Pedis Palpable Yes -Extremity Color Hyperpigmented -Hair Growth on Legs No -Hair Growth on Toes No -Temperature of Extremity Warm -Capillary Refill Greater than 3 Seconds -Dependent Rubor No -Blanched when Elevated No -Lipodermatosclerosis No -Other Deformity No -Prior Foot Ulcer No -Charcot Joint No -Prior Amputation No -Thick Yes -Discolored Yes -Deformed No -Improper Length & Hygeine No Right -Posterior Tibial Palpable Yes -Dorsalis Pedis Palpable Yes -Extremity Color Hyperpigmented -Hair Growth on Legs No -Hair Growth on Toes No -Temperature of Extremity Warm -Capillary Refill Greater than 3 Seconds -Dependent Rubor No -Blanched when Elevated No -Lipodermatosclerosis No -Other Deformity No -Prior Foot Ulcer No -Charcot Joint No -Prior Amputation No -Thick No -Discolored Yes -Deformed No -Improper Length & Hygeine No Communication Assessment Preferred language Bel[place] Able to Read Yes Able to Write Yes Communication Tools None Right Hearing Abillity Normal Left Hearing Abillity Normal Visual Assistive Devices Glasses Teaching Assessment Preferences Verbal,Written, Demonstration Barriers to Learning None Readiness To Learn Fair Willingness to Engage in Self Management Med Activies Readiness to Engage in Self Management Med Activities Anxiety Level Calm Cooperation Cooperative Perception Coherent Interest in Health Problem Asks Questions Education Importance Acknowledges Need Does Patient Smoke tobacco or other Yes substances Smoking Status Current every day smoker Is Patient Diabetic Yes Functional Assessment Recent Decline in Ability to Perform Denies Any Declines Culture/Zoroastrianism/Clinical Appeals Rn Cultural/Zoroastrianism Needs that may affect No Treatment Plan Would you allow our hospital photolithographer to No meet you for the purpose of spiritual/ emotional support? Clinical Appeals Rn to contact place of religious No Teaching: Wound Center Discharge Instructions -Person Taught Patient Dressing Your Wound -Person Taught Patient *Welcome to the Wound Center -Person Taught Patient WC - Nurse 1 - General Ulcer Measurement Start: 11/22/22 08:59 Freq: Status: Active Protocol: Activity Type Activity Date Activity User E-sign Co-sign Detail Recorded Client Recorded Date Recorded By Document 11/22/22 08:59 DL [id number] 11/22/22 09:12 DL 11/22/22 08:59 Wound Center Nurse 1 #1 R Lat Ankle -Current Size (cm) - Length 1.8 -Current Size (cm) - Width 1.8 -Current Size (cm) - Depth 0.5 -Total Square Cm 3.24 -Photo Taken Yes -Classification - Thickness Full Thickness without Exposed Support Structure -Exudate Amt Medium -Exudate Type Serosanguineous -Wound Margin Thickened -Granulation Amt Large (67-100%) -Granulation Quality Red -Necrosis Amt Small (1-33%) -Necrotic Tissue Type Adherent Slough -Structure Exposed N/A -Texture (Lori-wound Skin Appearance) Scarring -Moisture (Lori-wound Skin Appearance) Maceration -Color (Lori-wound Skin Appearance) No Abnormality -Temperature (Lori-wound Skin No Abnormality Appearance) (Pt Warm) -Tenderness on Palpation (Lori-wound No Skin Appearance) -Ulcer Cleansing Soap and Water -Foul Odor after Cleansing No -Anesthetic Used 5% Lidocaine Gel Right Calf (cm) 39 Right Ankle (cm) 25.5 Left Calf (cm) 39.5 Left Ankle (cm) 23 WC - Nurse 2 - General Ulcer CM Notes Start: 11/22/22 08:59 Freq: Status: Active Protocol: Activity Type Activity Date Activity User E-sign Co-sign Detail Recorded Client Recorded Date Recorded By Document 11/22/22 09:38 MW [id number] 11/22/22 09:48 MW 11/22/22 09:38 Wound Center Nurse 2 #1 R Lat Ankle -Time 09:40 -Correct Patient Yes -Correct Side, Site, Position Yes -Correct Procedure Yes -Procedure Performed Yes -Type of Procedure Debridement -Clinical Debridement Subcutaneous -Tissue Removed Subcutaneous -Post Debridement (cm) - Length 2.0 -Post Debridement (cm) - Width 2.0 -Post Debridement (cm) - Depth 0.1 -Total Square (Post) (cm) 4.00 -Area of Debridement (cm) - Length 2.0 -Area of Debridement (cm) - Width 2.0 -Total Square (Area) (cm) 4.00 -Tunneling No -Undermining/Tunneling No -Circular Undermining No -Wound/Ulcer Outcome Not Healed -Ulcer Cleansing Rinsed/ Irrigated with Saline -Foul Odor after Cleansing No -Bioengineered Tissue No -Bleeding Controlled with Pressure -Treatment Response Procedure Tolerated Well -Offloading No -Debridement - Subq, 1st 20sq cm Yes Pain Scale: 0-10 Numeric Is Patient Pain Free? Yes - Nurse 3 - General Ulcer D/C NN Start: 11/22/22 08:59 Freq: Status: Active Protocol: Activity Type Activity Date Activity User E-sign Co-sign Detail Recorded Client Recorded Date Recorded By Document 11/22/22 10:16 RB [id number] 11/22/22 10:17 RB 11/22/22 10:16 Wound Care Center Nurse 3 #1 R Lat Ankle -Ulcer Cleansing Rinsed/ Irrigated with Saline -Primary Dressing Applied NonAdherent Contact Layer, Promogran, Mepilex Border -Mepilex Border 1 -Promogran 1 Right -Size of Tubigrip Used Size D -Size D ($) 1 Treatment Response Procedure Tolerated Well Pain Scale: 0-10 Numeric Is Patient Pain Free? Yes WC - Visit Discharge Discharge Condition Stable Ambulatory Status Ambulatory Transportation Private Auto Medication Reconcilliation completed & No provided to patient/care provider Clinical Summary of Care Provided Yes Charges/Coding Visit Charges Office Visits / Consults: 45970 OV L4 New Procedures Integumentary [id number]: [id number] Carla subq tissue 20 sq cm/< Assessment/Plan Assessment/Plan (1) 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: CODE(S): L97.312 - Non-pressure chronic ulcer of right ankle with fat layer exposed (2) Insulin dependent diabetes mellitus: (3) Tobacco abuse: CODE(S): Z72.0 - Tobacco use PLAN: Plan Chronic nonhealing right lateral ankle ulcer. Debridement done as documented above, procedure was well-tolerated. Cultures taken. Due to chronicity and as above she has used a calcium alginate and collagen dressing over the year/ months without any significant improvement, application started for skin substitute. Venous and arterial studies also ordered in addition to CBC, CMP, CRP, ESR, A1c and prealbumin. Will review. Daily, cover with Adaptic and foam dressing to help with offloading. Change daily or more if needed. Smoking cessation very strongly recommended and optimal diabetes control also discussed,she voiced understanding. Adequate protein intake also discussed. Follow-up stephen week or sooner if needed. This note was generated with [employer] software. It may contain incorrectwords, spelling, and punctuation that were not noted in checking the note beforesigning. 11/23/22 9580 <Electronically signed by Chilango Laughlin MD> Cosigner Signature (if applicable): CC: ~ Signed [facility] Work Phone: [phone] Hospital Discharge instructions Patient Education 10/17/2022 05:07:08 Ankle Sprain (Adult) Ankle Sprain (Adult) An ankle sprain is a stretching or tearing of the ligaments that hold the ankle joint together. There are no broken bones. An ankle sprain is a common injury for both children and adults. It happens when the ankle turns, twists, or rolls in an awkward way. This can be caused by a sports injury. Or it can happen from doing something as simple as stepping on an uneven surface. Ligaments are made of tough connective tissue. Normally, ligaments stretch a certain amount and then go back to their normal place. A sprain happens when a ligament is forced to stretch more than thenormal amount. A severe sprain can actually tear the ligaments. If you have a severe sprain, you may have felt or heard something like a pop when you were injured. Ankle sprains are given a grade depending on whether they are mild, moderate, or severe: Grade 1 sprain. A mild sprain with minor stretching and damage to the ligament. Grade 2 sprain. A moderate sprain where the ligament is partly torn. Grade 3 sprain. The most severe kind of sprain. The ligament is completely torn. Most sprains take about 4 to 6 weeks to heal. A severe sprain can take several months to recover. Your healthcare provider may order X-rays to be sure you don t have a fracture, or broken bone. The injured area will feel sore. Swelling and pain may make it hard to walk. You may need crutches if walking is painful. Or your provider may have you use a cast boot or air splint. This will dependon the grade of ankle sprain that you have. Home care For a Grade 1 sprain, use RICE (rest, ice, compression, and elevation): Rest your ankle. Don t walk on it. Ice should be used right away to help control swelling. Place an ice pack over the injured area for20 minutes. Do this every 3 to 6 hours for the first 24 to 48 hours. Keep using ice packs to ease pain and swelling as needed. To make an ice pack, put ice cubes in a plastic bag that seals at the top. Wrap the bag in a clean, thin towel or cloth. Never put ice or an ice pack directly on the skin. The ice pack can be put right on the cast, bandage, or splint. As the ice melts, be careful that thecast, bandage, or splint doesn t get wet. If you have a boot, open it to apply an ice pack, unless told otherwise by your provider. Compression devices help to control swelling. They also keep the ankle from moving and support yourinjured ankle. These devices include dressings, bandages, and wraps. Elevate or raise your ankle above the level of your heart when sitting or lying down. This is very important for the first 48 hours. Follow the RICE guidelines for a Grade 2 sprain. This type of sprain will take longer to heal. Yourprovider may have you wear a splint, cast, or brace to keep your ankle from moving. If you have a Grade 3 sprain, you are at risk for long-term ankle instability. In rare cases, surgery may be needed. Your provider may have you wear a short leg cast or a walking boot for 2 to 3 weeks. After 48 hours, it may be helpful to apply heat for 20 minutes several times a day. You can do thiswith a heating pad or warm compress. Or you may want to go back and forth between using ice and heat. Never apply heat directly to the skin. Always wrap the heating pad or warm compress in a clean, thin towel or cloth. You may use [id number] pain medicine (NSAIDS or nonsteroidal anti- inflammatory drugs) to control pain, unless another pain medicine was prescribed. Talk with your provider before using these medicines if you have chronic liver or kidney disease, or have ever had a stomach ulcer or gastrointestinal bleeding. Follow any rehabilitation exercises your provider gives you. These can help you be more flexible and improve your balance and coordination. This is helpful in preventing long-term ankle problems. Prevention To help prevent ankle sprains, it s important to have good strength, balance, and flexibility. Be sure to: Always warm up before you exercise or do something very active Be careful when walking or running on uneven or cracked surfaces Wear shoes that are in good condition and fit well Listen to your body s signals to slow down when you are in pain or tired Follow-up care Any X-rays you had today don t show any broken bones, breaks, or fractures. Sometimes fractures dont show up on the first X-ray. Bruises and sprains can sometimes hurt as much as a fracture. These injuries can take time to heal completely. If your symptoms don t get better or they get worse, talk with your healthcare provider. You may need a repeat X-ray. Follow up with your healthcare provider, or as advised. Check for any warning signs listed below. When to seek medical advice Call your healthcare provider right away if any of these occur: Fever of 100.4 F (38 C) or higher, or as directed by your healthcare provider Chills The injury doesn t seem to be healing The swelling comes back The cast or splint has a bad smell The plaster cast or splint gets wet or soft The fiberglass cast or splint gets wet and does not dry for 24 hours The pain or swelling increases, or redness appears Your toes become cold, blue, numb, or tingly The skin is discolored (looks blue, purple, or white), has blisters, or is irritated You re-injure your ankle [id number] [employer]. [address] [place] [address]. All rights reserved. This information is not intended as a substitute for professional medical care. Always follow yourhealthcare professional's instructions. Follow Up Care 10/17/2022 04:04:56 With:LANA ARRIETA Address: [address] [facility] [place] [address]- Business (1) When:2-4 days [facility] 04-05-2023 Note Discharge Instructions Thank you for allowing [facility] to assist you with your healthcare needs. The following is importantdischarge information regarding your hospital visit. Diagnosis from Today's Visit Leg pain-swelling Sprain What to Do Next Instructions from Your Care Team No qualifying data available. Post Acute Orders No qualifying data available. You Need to Schedule the Following Appointments Follow Up with LANA ARRIETA When Within 2-4 days Where: [address] [facility] [place] [address]- Business (1) Allergies Apricots (Rash) Bee Stings (Anaphylactic reaction) [place] (Rash) Dilaudid Lactose Milk Products (Rash) Peas (Rash) Phenergan Tomatoes tuberculin purified protein derivative (Lactose intolerance) Medications Please ask your primary doctor or pharmacist before taking any other medication not listed, including over the counter drugs, herbal medications, vitamins and or supplements as they may interact withyour home medications. What How Much When Instructions Last Dose Unchanged acetaminophen (acetaminophen 325 mg oral tablet) 2 tab(s) by mouth Three (3) times a day as needed for as needed for pain Unchanged Al hydroxide/ Mg hydroxide/ simethicone (Maalox) 10 Milliliter by mouth Four (4) times a day as needed for for indigestion Unchanged albuterol (albuterol 2.5 mg/ 3 mL (0.083%) inhalation solution) 3 Milliliter by inhalation Every 4 hours as needed for for wheezing Unchanged amLODIPine (Norvasc 5 mg oral tablet) 1 tab(s) by mouth Once a day Unchanged apixaban (Eliquis 2.5 mg oral tablet) 1 tab(s) by mouth Two (2) times a day Unchanged atorvastatin (Lipitor 80 mg oral tablet) 1 tab(s) by mouth Daily at bedtime Unchanged bisacodyl (bisacodyl 10 mg rectal suppository) 1 suppository(ies) in the rectum Three (3) times a day as needed for as needed for constipation Unchanged bisacodyl (bisacodyl 5 mg oral delayed release tablet) 1 tab(s) by mouth Three (3) times a day as needed for as needed for constipation Unchanged ciprofloxacin otic (Cetraxal 0.2% otic solution) 1 Each Right ear Every 12 hours Unchanged cycloSPORINE ophthalmic (Restasis 0.05% ophthalmic emulsion) 1 Drops Both eyes Two (2) times a day Unchanged dulaglutide (Trulicity Pen 4.5 mg/ 0.5 mL subcutaneous solution) 4.5 Milligram Subcutaneous Every week Duration: 7 Days Saturday/ rotate injection sites Unchanged DULoxetine (Cymbalta 60 mg oral delayed release capsule) 1 cap by mouth Daily at bedtime Unchanged ergocalciferol (Vitamin D2 2000 intl units (50 mcg) oral capsule) 1 cap by mouth Once a day with food Unchanged fluticasone nasal (Flonase 50 mcg/ inh nasal spray) 1 spray(s) each nostril Once a day (in the morning) Unchanged fluticasone nasal (Flonase 50 mcg/ inh nasal spray) 2 spray(s) each nostril Once a day (in the morning) Unchanged fluticasone/ umeclidinium/ vilanterol (Trelegy Ellipta 200 mcg-62.5 mcg-25 mcg/ inh inhalation powder) 1 puff(s) by inhalation Once a day at the same time every day Unchanged guaiFENesin (Jessi-Tussin Expectorant) See instructions 10mg/ ml by mouth every Q4 hours needed for cough Unchanged HYDROcodone (Hysingla ER 30 mg oral tablet, extended release) 1 tab(s) by mouth Every 24 hours Unchanged insulin aspart (Novolog) (NovoLOG FlexPen 100 units/ mL injectable solution) Unchanged insulin degludec (Tresiba FlexTouch 200 units/ mL 3 mL subcutaneous solution) 120 unit(s) Subcutaneous Once a day rotate injection sites Unchanged insulin glargine (Lantus Solostar Pen 100 units/ mL 3 mL Pen) Subcutaneous Daily at bedtime 85 units Unchanged insulin regular (insulin regular human recombinant 100 units/ mL injectable solution) Subcutaneous Sliding scale: 0-150 = 0 Units 151-200 = 2 units 250 = 4 units 251-300 = 6 units 301-350 = 8 units > 350 = 10 units Unchanged loperamide (Imodium A-D 2 mg oral tablet) 1 tab(s) by mouth Two (2) times a day as needed for Loose stool Unchanged LORazepam (Ativan 0.5 mg oral tablet) 1 tab(s) by mouth Three (3) times a day Unchanged lurasidone (Latuda 40 mg oral tablet) 1 tab(s) by mouth Once a day Unchanged magnesium hydroxide (Milk of Magnesia 8% oral suspension) 30 Milliliter by mouth Daily at bedtime as needed for as needed for constipation Unchanged ondansetron (Zofran 4 mg oral tablet) 1 tab(s) by mouth Every 6 hours as needed for Nausea/Vomiting Unchanged pantoprazole (pantoprazole 40 mg oral enteric coated tablet) 1 tab(s) by mouth Once a day before a meal Unchanged polyethylene glycol 3350 (Miralax Powder Packet) 17 gram(s) by mouth Once a day as needed for Constipation dissolve in water before taking Unchanged prazosin (prazosin 1 mg oral capsule) 1 cap by mouth Daily at bedtime Unchanged pregabalin (Lyrica 225 mg oral capsule) 1 cap by mouth Two (2) times a day Unchanged QUEtiapine (SEROquel XR 400 mg oral tablet, extended release) 1 tab(s) by mouth Daily at bedtime Unchanged zolpidem (Ambien 10 mg oral tablet) 1 tab(s) by mouth Daily at bedtime Please take this list to your next doctor s visit. Bring all medications you take, including over the counter medications, herbals and other supplements with you to your doctor s visit. Patients and families are reminded to discard old lists and to update any records with all medication providers or retail pharmacies. Education Materials Ankle Sprain (Adult) An ankle sprain is a stretching or tearing of the ligaments that hold the ankle joint together. There are no broken bones. An ankle sprain is a common injury for both children and adults. It happens when the ankle turns, twists, or rolls in an awkward way. This can be caused by a sports injury. Or it can happen from doing something as simple as stepping on an uneven surface. Ligaments are made of tough connective tissue. Normally, ligaments stretch a certain amount and then go back to their normal place. A sprain happens when a ligament is forced to stretch more than thenormal amount. A severe sprain can actually tear the ligaments. If you have a severe sprain, you may have felt or heard something like a pop when you were injured. Ankle sprains are given a grade depending on whether they are mild, moderate, or severe: Grade 1 sprain. A mild sprain with minor stretching and damage to the ligament. Grade 2 sprain. A moderate sprain where the ligament is partly torn. Grade 3 sprain. The most severe kind of sprain. The ligament is completely torn. Most sprains take about 4 to 6 weeks to heal. A severe sprain can take several months to recover. Your healthcare provider may order X-rays to be sure you don t have a fracture, or broken bone. The injured area will feel sore. Swelling and pain may make it hard to walk. You may need crutches if walking is painful. Or your provider may have you use a cast boot or air splint. This will dependon the grade of ankle sprain that you have. Home care For a Grade 1 sprain, use RICE (rest, ice, compression, and elevation): Rest your ankle. Don t walk on it. Ice should be used right away to help control swelling. Place an ice pack over the injured area for20 minutes. Do this every 3 to 6 hours for the first 24 to 48 hours. Keep using ice packs to ease pain and swelling as needed. To make an ice pack, put ice cubes in a plastic bag that seals at the top. Wrap the bag in a clean, thin towel or cloth. Never put ice or an ice pack directly on the skin. The ice pack can be put right on the cast, bandage, or splint. As the ice melts, be careful that thecast, bandage, or splint doesn t get wet. If you have a boot, open it to apply an ice pack, unless told otherwise by your provider. Compression devices help to control swelling. They also keep the ankle from moving and support yourinjured ankle. These devices include dressings, bandages, and wraps. Elevate or raise your ankle above the level of your heart when sitting or lying down. This is very important for the first 48 hours. Follow the RICE guidelines for a Grade 2 sprain. This type of sprain will take longer to heal. Yourprovider may have you wear a splint, cast, or brace to keep your ankle from moving. If you have a Grade 3 sprain, you are at risk for long-term ankle instability. In rare cases, surgery may be needed. Your provider may have you wear a short leg cast or a walking boot for 2 to 3 weeks. After 48 hours, it may be helpful to apply heat for 20 minutes several times a day. You can do thiswith a heating pad or warm compress. Or you may want to go back and forth between using ice and heat. Never apply heat directly to the skin. Always wrap the heating pad or warm compress in a clean, thin towel or cloth. You may use besa-eou-ljdtuxw pain medicine (NSAIDS or nonsteroidal anti- inflammatory drugs) to control pain, unless another pain medicine was prescribed. Talk with your provider before using these medicines if you have chronic liver or kidney disease, or have ever had a stomach ulcer or gastrointestinal bleeding. Follow any rehabilitation exercises your provider gives you. These can help you be more flexible and improve your balance and coordination. This is helpful in preventing long-term ankle problems. Prevention To help prevent ankle sprains, it s important to have good strength, balance, and flexibility. Be sure to: Always warm up before you exercise or do something very active Be careful when walking or running on uneven or cracked surfaces Wear shoes that are in good condition and fit well Listen to your body s signals to slow down when you are in pain or tired Follow-up care Any X-rays you had today don t show any broken bones, breaks, or fractures. Sometimes fractures dont show up on the first X-ray. Bruises and sprains can sometimes hurt as much as a fracture. These injuries can take time to heal completely. If your symptoms don t get better or they get worse, talk with your healthcare provider. You may need a repeat X-ray. Follow up with your healthcare provider, or as advised. Check for any warning signs listed below. When to seek medical advice Call your healthcare provider right away if any of these occur: Fever of 100.4 F (38 C) or higher, or as directed by your healthcare provider Chills The injury doesn t seem to be healing The swelling comes back The cast or splint has a bad smell The plaster cast or splint gets wet or soft The fiberglass cast or splint gets wet and does not dry for 24 hours The pain or swelling increases, or redness appears Your toes become cold, blue, numb, or tingly The skin is discolored (looks blue, purple, or white), has blisters, or is irritated You re-injure your ankle [id number] [employer]. [address] [place] [address], [place] [address]. All rights reserved. This information is not intended as a substitute for professional medical care. Always follow yourhealthcare professional's instructions. Additional Information VACCINATE! IT SAVES LIVES! Members of the community who have not yet received the COVID-19 vaccine and would like to receive it can visit one of [facility] vaccine clinics. There are many vaccine clinic locations within the [facility]. For locations and available times, please visit www.gettheshot.coronavirus.[email or web address]/. It is important to note that some COVID mobile vaccine clinics are held outdoors and may be canceled in rainy or stormy conditions. To learn more about pediatric vaccinations (ages 5-11), we invite you to visit the [facility] webpage. [email or web address] learn more about the COVID-19 vaccine, we invite you to visit the CDC website for a list of frequently asked questions. https://www.cdc.gov/coronavirus/2019-ncov/vaccines/faq.html [facility] Patient Portal Access Instructions: Stay connected with your healthcare team and access your personal medical information anytime with the [facility] Patient Portal. If you would like a full copy of your medical records please contact the [facility] Medical Records Department Saturday through Saturday between 8a.m. and 4:30p.m. Please follow the directions below to access the portal: 1.Access the email account you provided upon registration to the hospital.2.Look for an invitation email from [facility].3.Open the email and access the invitation link: Accept Invitation to [facility]4.Fill in the required lozano to create your account. Sign into [email or web address].[employer] with your username and password that you created in the above steps to stay up to date. You can then view a summary of results, a summary of your visits, and the ability to download your summaries to your computer or send the information securely to a physician. Remember that your healthcare information is confidential, so carefully consider who you will allow to register on the [facility] Patient Portal for access to your information. You can also access the [facility] Patient Portal on the [employer]. Simply click on Health Records under HealthData and then click on the [employer] logo. HOW TO SAFELY DISPOSE OF PRESCRIPTION MEDICATIONS Please use one of the following methods to safely dispose of your unused medications. 1.Use a drug disposal kit: the drug disposal pouch allows you to safely discard your old and unuseddrugs. Ask your nurse to give you one when you are discharged.2.Visit a local take-back location: Many local pharmacies and police departments have programs that collect old and unwanted prescriptiondrugs. Call your local pharmacy or go to http://Acusphere.streamOnce/9T0Ae1j to find one close to you.3.Make use of household items: Use cat litter or old coffee grounds to dispose medications if other options arenot available. Mix your drugs with these household products, seal them in an airtight container andthrow it into the garbage. Call [facility]: [phone] to be sure your drugs can be disposed of in this way. Some medicines may require a different approach.4.Never flush your medications down the toilet. IF YOU HAVE BEEN PRESCRIBED AN OPIOIDS FOR PAIN If you have been prescribed an opioid (such as hydrocodone, oxycodone or morphine), it is critical to understand the possible side effects and risks of opioid pain medications. Even when taken as directed, opioids can have several side effects including: Tolerance, meaning you might need to take more of a medication for the same pain relief. Nausea, vomiting and/or constipation. Sleepiness, dizziness, dry mouth, confusion, depression or itching. Physical dependence, meaning you have withdrawal symptoms when a medication is stopped ? this can develop within a few days. KNOW YOUR RESPONSIBILITIES It is important to know exactly how much and how often to take the opioid pain medications you are prescribed. Never take opioids in higher amounts or more often than prescribed. Do not combine opioids with alcohol or other drugs that cause drowsiness, such as benzodiazepines, also known as benzos,including diazepam and alprazolam, muscle relaxants or sleep aids. Never sell or share prescriptionopioids. This is illegal. Store opioids in a secure place and out of reach of others (including children, family, friends and visitors). The last page(s) of this document has been signed and retained as a CHART COPY Signatures Patient Education Materials Ankle Sprain (Adult) Medication Leaflets My discharge plan and instructions have been reviewed and explained to me and MAGNOLIA Rosales WANDA J understand my current condition and have read and understand these discharge instructions. I have received a written copy of the plan/instructions. If I have questions, I am aware that I should contact my doctor. 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 HISTORY: ORDERING SYSTEM PROVIDED HISTORY: Reason for Exam: pain. Ran motorized chair into air conditioner. FINDINGS: Bones are demineralized. No acute fracture or dislocation. Talar dome and ankle mortise are intact. Moderate degenerative changes of the midfoot and the 1st metatarsophalangeal joint. No tibiotalar effusion. No radiopaque foreign body. Diffuse ankle swelling. IMPRESSION: No acute fracture or dislocation. Diffuse ankle swelling. I have personally reviewed the images of this examination, and agree with the resident's findings and interpretation. Interpreted by: Marvel Batista MD Preliminary Report By: Can Pickett Electronically signed By Marvel Batista MD Dictated Date: 10/17/2022 4:50:41 AM Prelim Date: 10/17/2022 4:59:49 AM Sign Date: 10/17/2022 5:04:00 AM Ordering Provider: MAKENNA HYATT [facility]04-05-2023 Note ORIGINAL EXAMINATION: THREE XRAY VIEWS OF THE RIGHT KNEE 10/17/2022 4:40 am COMPARISON: None. HISTORY: ORDERING SYSTEM PROVIDED HISTORY: Reason for Exam: Pain. Ran motorized chair into air conditioner. FINDINGS: No acute fracture or dislocation. Mild tricompartmental degenerative changes. Mild suprapatellar enthesopathy. No significant joint effusion. No radiopaque foreign body. IMPRESSION: No acute fracture or dislocation. I have personally reviewed the images of this examination, and agree with the resident's findings and interpretation. Interpreted by: Marvel Batista MD Preliminary Report By: Can Pickett Electronically signed By Marvel Batista MD Dictated Date: 10/17/2022 4:45:32 AM Prelim Date: 10/17/2022 4:50:33 AM Sign Date: 10/17/2022 5:02:30 AM Ordering Provider: [facility]04-05-2023 Note ORIGINAL EXAMINATION: 6 XRAY VIEWS OF THE RIGHT FOOT AND ANKLE 10/17/2022 4:42 am COMPARISON: Right foot radiograph on 07/15/2022. HISTORY: ORDERING SYSTEM PROVIDED HISTORY: Reason for Exam: pain. Ran motorized chair into air conditioner. FINDINGS: Bones are demineralized. No acute fracture or dislocation. Talar dome and ankle mortise are intact. Moderate degenerative changes of the midfoot and the 1st metatarsophalangeal joint. No tibiotalar effusion. No radiopaque foreign body. Diffuse ankle swelling. IMPRESSION: No acute fracture or dislocation. Diffuse ankle swelling. I have personally reviewed the images of this examination, and agree with the resident's findings and interpretation. Interpreted by: Marvel Batista MD Preliminary Report By: Can Pickett Electronically signed By Marvel Batista MD Dictated Date: 10/17/2022 4:50:41 AM Prelim Date: 10/17/2022 4:59:49 AM Sign Date: 10/17/2022 5:04:00 AM Ordering Provider: [facility]04-05-2023 Note ORIGINAL EXAMINATION: THREE XRAY VIEWS OF THE RIGHT KNEE 10/17/2022 4:40 am COMPARISON: None. HISTORY: ORDERING SYSTEM PROVIDED HISTORY: Reason for Exam: Pain. Ran motorized chair into air conditioner. FINDINGS: No acute fracture or dislocation. Mild tricompartmental degenerative changes. Mild suprapatellar enthesopathy. No significant joint effusion. No radiopaque foreign body. IMPRESSION: No acute fracture or dislocation. I have personally reviewed the images of this examination, and agree with the resident's findings and interpretation. Interpreted by: Marvel Batista MD Preliminary Report By: Can Pickett Electronically signed By Marvel Batista MD Dictated Date: 10/17/2022 4:45:32 AM Prelim Date: 10/17/2022 4:50:33 AM Sign Date: 10/17/2022 5:02:30 AM Ordering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 use of the information to criminally investigate or prosecute any alcohol or drug abuse patient.[facility] Center[facility] the event this information is protected by the Federal Confidentiality of Alcohol and Drug Abuse Patient Records regulations: The Federal rules restrict any use of the information to criminally investigate or prosecute any alcohol or drug abuse patient.[facility] Center[facility] the event this information is protected by the Federal Confidentiality of Alcohol and Drug Abuse Patient Records regulations: The Federal rules restrict any use of the information to criminally investigate or prosecute any alcohol or drug abuse patient.[facility] the event this information is protected by the Federal Confidentiality of Alcohol and Drug Abuse Patient Records regulations: The Federal rules restrict any use of the information to criminally investigate or prosecute any alcohol or drug abuse patient.[facility] Center[facility] the event this information is protected by the Federal Confidentiality of Alcohol and Drug Abuse Patient Records regulations: The Federal rules restrict any use of the information to criminally investigate or prosecute any alcohol or drug abuse patient.[facility] Center[facility] the event this information is protected by the Federal Confidentiality of Alcohol and Drug Abuse Patient Records regulations: The Federal rules restrict any use of the information to criminally investigate or prosecute any alcohol or drug abuse patient.[facility] Center[facility] the event this information is protected by the Federal Confidentiality of Alcohol and Drug Abuse Patient Records regulations: The Federal rules restrict any use of the information to criminally investigate or prosecute any alcohol or drug abuse patient.[facility] Center[facility] the event this information is protected by the Federal Confidentiality of Alcohol and Drug Abuse Patient Records regulations: The Federal rules restrict any use of the information to criminally investigate or prosecute any alcohol or drug abuse patient.[facility] Center[facility] the event this information is protected by the Federal Confidentiality of Alcohol and Drug Abuse Patient Records regulations: The Federal rules restrict any use of the information to criminally investigate or prosecute any alcohol or drug abuse patient.[facility] Center[facility] the event this information is protected by the Federal Confidentiality of Alcohol and Drug Abuse Patient Records regulations: The Federal rules restrict any use of the information to criminally investigate or prosecute any alcohol or drug abuse patient.[facility] Center[facility] the event this information is protected by the Federal Confidentiality of Alcohol and Drug Abuse Patient Records regulations: The Federal rules restrict any use of the information to criminally investigate or prosecute any alcohol or drug abuse patient.[facility] Center[facility] the event this information is protected by the Federal Confidentiality of Alcohol and Drug Abuse Patient Records regulations: The Federal rules restrict any use of the information to criminally investigate or prosecute any alcohol or drug abuse patient.[facility] Center[facility] the event this information is protected by the Federal Confidentiality of Alcohol and Drug Abuse Patient Records regulations: The Federal rules restrict any use of the information to criminally investigate or prosecute any alcohol or drug abuse patient.[facility] Center[facility] the event this information is protected by the Federal Confidentiality of Alcohol and Drug Abuse Patient Records regulations: The Federal rules restrict any use of the information to criminally investigate or prosecute any alcohol or drug abuse patient.[facility] Center[facility] the event this information is protected by the Federal Confidentiality of Alcohol and Drug Abuse Patient Records regulations: The Federal rules restrict any use of the information to criminally investigate or prosecute any alcohol or drug abuse patient.[facility] CenterIn the event this information is protected by the Federal Confidentiality of Alcohol and Drug Abuse Patient Records regulations: The Federal rules restrict any use of the information to criminally investigate or prosecute any alcohol or drug abuse patient.[facility] Reason for Visit (unrecogniz ed section and content) Reason Comments Imm/Inj Specialty Diagnoses / Procedures Referred By Contac t Referred To Contact Neurology / HEMONC INFUSION Diagnoses // prolia Procedures DENOSUMAB INJECTION TREATMENT 30 MINUTES Funmilayo Pope MD [address] [place] [address] [address] [facility] [address] [place] [address] Referral ID Status Reason Start Date Expiration Date V isits Requested Visits Authorized [id number] Authorized 07/27/2024 07/15/2025 1 2 Specialty Diagnoses / Procedures Referred By Contac t Referred To Contact HEMATOLOGY/ONCOLOGY Diagnoses Other osteoporosis without current pathological fracture Procedures DENOSUMAB INJECTION Prolia [id number] Funmilayo Pope MD [address] [place] [address] Joe [facility] [address] [place] [address] Referral ID Status Reason Start Date Expiration Date V isits Requested Visits Authorized [id number] Authorized 01/31/2022 03/26/2024 2 2 Reason Comments Medication Follow-up Reason Comments Patient Update NEW PHONE NUMBER Reason Comments Infusion Specialty Diagnoses / Procedures Referred By Contac t Referred To Contact Diagnoses Other osteoporosis without current pathological fracture Procedures reclast Funmilayo Pope MD [address] [place] [address] Joe Treat [facility] [address] [place] [address] Referral ID Status Reason Start Date Expiration Date V isits Requested Visits Authorized [id number] Authorized 09/12/2021 12/11/2021 99 99 Reason Comments Procedure Reason Comments Osteoarthritis Reason Comments Medication Authorization Prolia - NO PA REQ for medicare B Reason Comments Osteoporosis BMD on 08/07/2021 Reason Comments Orders Reason Comments APPROVED Prolia (Bath) APPROV ED [id number] 03.26.23 - 03.26.24 for 2 visits [facility] Medicare/Portal Reason Comments Results Reason Comments Appointment Reason Comments Medication Preauthorization Prolia- Bath Approved [id number] [facility] Medicare/Portal 07.15.24-07.15.25 2 visits Care Teams (unrecognized sec tion and content) Building Associate Relationship Specialty Start Date End Date Lana Arrieta MD [address] [place], [place] [id number] PCP - General Family Practice 12/28/20 Building Associate Relationship Specialty Start Date End Date Lana Arrieta MD [address] [place], [place] [id number] PCP - General Family Practice 12/28/20 Building Associate Relationship Specialty Start Date End Date Lana Arrieta MD [address] [place], [place] [id number] PCP - General Family Practice 12/28/20 Building Associate Relationship Specialty Start Date End Date Lana Arrieta MD [address] [place], [place] [id number] PCP - General Family Practice 12/28/20 Building Associate Relationship Specialty Start Date End Date Lana Arrieta MD [address] [place], [place] [id number] PCP - General Family Practice 12/28/20 Lauren Ruelas [address] [place] [id number] Anesthesiology 01/31/22 Building Associate Relationship Specialty Start Date End Date Lana Arrieta MD [address] [facility] [place] [address] PCP - General Family Practice 12/28/20 [employer] [address] [place] [address] Anesthesiology 01/31/22 Building Associate Relationship Specialty Start Date End Date Lana Arrieta MD [address] [facility] [place] [address] PCP - General Family Practice 12/28/[address] [address] Anesthesiology 01/31/22 Building Associate Relationship Specialty Start Date End Date Lana Arrieta MD [address] [facility] [place] [address] PCP - General Family Medicine 12/28/[address] [place] [address] Anesthesiology 01/31/22 Building Associate Relationship Specialty Start Date End Date Lana Arrieta MD [address] [facility] [place] [address] PCP - General Family Medicine 12/28/20 [employer] [address] [place] [address] Anesthesiology 01/31/22 Team Status: Active Member Role Status Dates Dr. Lana Arrieta MD Family Provider Active Dr. Bianca Palomares MD Primary Care Provider Active Team Status: Active Member Role Status Dates Dr. Chilango Laughlin MD Attending Provider, Other Pr ovider Active Dr. Bianca Palomares MD Primary Care Provider, Referring Provider Active Team Status: Inactive Member Role Status Dates Dr. Chilango Laughlin MD Attending Provider Active Dr. Bianca Palomares MD Primary Care Provider, Referring Provider Active Team Status: Inactive Member Role Status Dates Dr. Bianca Palomares MD Primary Care Provider, Referring Provider Active ARMINDA Hatch Attending Provider Active Team Status: Inactive Member Role Status Dates Dr. Bianca Palomares MD Primary Care Provider Active Dr. Kurt Justice MD Attending Provider Active Team Status: Active Member Role Status Dates Dr. Chilango Laughlin MD Other Provider Active Dr. Bianca Palomares MD Primary Care Provider, Referring Provider Active ARMINDA Cagle Attending Provider Active Team Status: Inactive Member Role Status Dates Dr. Bianca Palomares MD Primary Care Provider, Referring Provider Active Dr. Festus Luque MD Attending Provider Active Building Associate Relationship Specialty Start Date End Date Lana Arrieta MD [address] [place] [address] PCP - General Family Medicine 12/28/20 Lauren Ruelas [address] [place] [address] Anesthesiology 01/31/22 Building Associate Relationship Specialty Start Date End Date Lana Arrieta MD [address] [place] [address] PCP - General Family Medicine 12/28/20 Lauren Ruelas [address] [place], [place] [id number] Anesthesiology 01/31/22 Building Associate Relationship Specialty Start Date End Date Lana Arrieta MD [address] [place] [address] PCP - General Family Medicine 12/28/20 Lauren Ruelas [address] [place] [address] Anesthesiology 01/31/22 Building Associate Relationship Specialty Start Date End Date Lana Arrieta MD [address] [place], [place] [id number] PCP - General Family Medicine 12/28/20 Lauren Ruelas [address] [place] [id number] Anesthesiology 01/31/22 Building Associate Relationship Specialty Start Date End Date Lana Arrieta MD [address] [place] [address] PCP - General Family Medicine 12/28/20 Lauren Ruelas MD [address] [place] [address] [phone] Anesthesiology 01/31/22 Building Associate Relationship Specialty Start Date End Date Lana Arrieta MD [address] [place] [address] PCP - General Family Medicine 12/28/20 Lauren Ruelas MD [address] [place] [address] [phone] Anesthesiology 01/31/22 Team Status: Inactive Member Role Status Dates Dr. Bianca Palomares MD Primary Care Provider, Referring Provider Active DECLNA LayM Attending Provider Active Team Status: Active Member Role Status Dates Dr. Bianca Palomares MD Primary Care Provider Active Dr. Chilango Laughlin MD Attending Provider, Referchi [facility] Provider Active Team Status: Inactive Member Role Status Dates Dr. Bianca Palomares MD Primary Care Provider Active Dr. Chilango Laughlin MD Attending Provider, Referrin g Provider Active Team Status: Active Member Role Status Dates Dr. Bianca Palomares MD Primary Care Provider, Referring Provider Active Dr. Karthikeyan Grove DPM Attending Provider Active Team Status: Inactive Member Role Status Dates Dr. Bianca Palomares MD Primary Care Provider Active Dr. Dino Pena MD Emergency Provider Active Building Associate Relationship Specialty Start Date End Date Lana Arrieta MD [address] [place] [address] PCP - General Family Medicine 12/28/20 Lauren Ruelas MD [address] [place] [address] [id number] Anesthesiology 01/31/22 Building Associate Relationship Specialty Start Date End Date Lana Arrieta MD [address] [place] [address] PCP - General Family Medicine 12/28/20 Lauren Ruelas MD [address] [place] [id number] Anesthesiology 01/31/22 Building Associate Relationship Specialty Start Date End Date Lana Arrieta MD [address] [place] [address] PCP - General Family Medicine 12/28/20 Lauren Ruelas MD [address] [place] [phone] Anesthesiology 01/31/22 Team Status: Active Member Role Status Dates Dr. Mariah Guevara MD Primary Care Provider Ac tive Team Status: Inactive Member Role Status Dates Dr. Dino Pena MD Attending Provider Active Start: September 12, 2024 End: September 13, 2024 Dr. Dino Pena MD Emergency Provider Active Start: September 12, 2024 End: September 13, 2024 Dr. Mariah Guevara MD Primary Care Provider Ac tive Start: September 12, 2024 End: September 13, 2024 Team Status: Inactive Member Role Status Dates Dr. Mariah Guevara MD Primary Care Provider Ac tive Start: September 27, 2024 End: September 27, 2024 Dr. Gregorio Cochran DO Emergency Provider Active Start: September 27, 2024 End: September 27, 2024 Goals (unrecognized section and content) Goals may be documented in a n alternate section Care Team (unrecognized sect ion and content) Care Team Personnel Name: LANA ARRIETA MD Position: P4 Physician - Primary Care Med Service: Active Provider Member Role: Primary Care Physician Address: Address: [address] [place] [address] Care Team Related Persons Name: JOSE ARMAS Care Team Personnel Name: LANA ARRIETA MD Position: P4 Physician - Primary Care Med Service: Active Provider Member Role: Primary Care Physician Address: Address: [address] [place] [address] Care Team Related Persons Name: JOSE ARMAS Active Administered Medications - up to 3 most recent administrations Administered Medications (un recognized section and content) Medication Order MAR Action Action Date Dose Rate Site denosumab 60 mg injection (PROLIA) 60 mg, SUBCUTANEOUS, EVERY 6 MONTHS, First dose on Sat01/31/22 at 1000, Until Discontinued, Allow To Come To Room Temperature Before Administration. REFRIGERATE Given 09/20/2023 11:33 AM EST 60 mg Arm, Left Given 03/13/2023 1:06 PM EDT 60 mg Ar m, Left Given 09/05/2022 9:41 AM EST 60 mg Ar m, Right FOR RECORDS PERTAINING TO PATIENTS WHO ARE OR HAVE BEEN ENROLLED IN A CHEMICAL DEPENDENCY/SUBSTANCEABUSE PROGRAM, SOME INFORMATION MAY BE OMITTED. This clinical summary was aggregated from multiple sources. Caution should be exercised in using it in the provision of clinical care. This summary normalizes information from multiple sources, and as a consequence, information in this document may materially change the coding, format and clinical context of patient data. In addition, data may be omitted in some cases. CLINICAL DECISIONS SHOULD BE BASED ON THE PRIMARY CLINICAL RECORDS. [employer] [facility]. provides no warranty or guarantee of the accuracy or completeness of information in this document.
--- OUTSIDE RECORDS SUMMARY | 2025-01-21 07:25 | XMS RPT_ITS | CCD ---
Author Organization [facility] Care Team Providers Care Collection Advisor Name Role Phone Sandra Loomis Unavailable Sandra Loomis Unavailable Karthikeyan Hall Unavailable Sandra Loomis Unavailable Sandra Loomis Unavailable Sandra Loomis Unavailable JEREMY MACHADO Unavailable Unavai Karthikeyan Duff Unavailable Lana Arrieta MD Primary Care Provider [phone] LANA ARRIETA MD Primary Care Physician Lauren Ruelas Unavailable Lana Arrieta MD Primary Care Provider Lauren Ruelas Unavailable Lana Arrieta MD Primary Care Provider Lauren Ruelas Unavailable Dr. Chilango Laughlin Attending Provider [phone] Dr. Chilango Laughlin Other Provider [phone] Dr. Bianca Palomares Primary Care Provider Unavaila [...] Provider [phone] Dr. Kurt Justice Attending Provider 1([facility]) Dr. Chilango Laughlin Attending Provider [phone] Dr. Chilango Laughlin Other Provider [phone] Marielle, Dr. Valenzuela Primary Care Provider Unavaila ble Marielle, Dr. Valenzuela Referring Provider Unavailable ARMINDA Álvarez Attending Provider 1([facility])3419 Dr. Kurt Justice Attending Provider 1([facility]) Dr. Chilango Laughlin Attending Provider [phone] Dr. Chilango Laughlin Other Provider [phone] Dr. Bianca Palomares Primary Care Provider Unavaila ble Marielle, Dr. Valenzuela Referring Provider Unavailable ARMINDA Álvarez Attending Provider 1([facility])3419 Dr. Chilango Laughlin Attending Provider [phone] Dr. Chilango Laughlin Other Provider [phone] Marielle, Dr. Valenzuela Primary Care Provider Unavaila ble Marielle, Dr. Valenzuela Referring Provider Unavailable Dr. Chilango Laughlin Attending Provider [phone] Dr. Chilango Laughlin Other Provider [phone] Dr. Bianca Palomares Primary Care Provider Unavaila ble Marielle, Dr. Valenzuela Referring Provider Unavailable Berny SOARES, Lana Vargas Primary Care Provider [phone] Jessenia SOARES, Lauren Swift Unavailable MARIELLE SOARES, [...] [phone] Marielle, Dr. Valenzuela Primary Care Provider Unavailjsoe antonio Palomares, Dr. Valenzuela Referring Provider Unavailable Dr. Chilango Laughlin Attending Provider [phone] Qian, Dr. Kee Other Provider [phone] Marielle, Dr. Valenzuela Primary Care Provider Unavailjose antonio Palomares, Dr. Valenzuela Referring Provider Unavailable Berny SOARES, Lana Vargas Primary Care Provider TOSHIA, FUNMILAYO Referring Unavailable LAAN ARRIETA Primary Care Unavailable LANA ARRIETA Primary [...] Drug Allergy 5 PT UNSURE OF REACTION [facility] Repository (20 sources) lactose; Translations: [LACTOSE] Drug Allergy 0 [facility] Rep[facility] (20 sources) levoFLOXacin; Translations: [LEVOFLOXACIN] Drug Allergy 5 Intolerance [facility] Repository (20 sources) morphine; Translations: [MORPHINE] Drug Allergy 4 Itching [facility] Rep[facility] (20 sources) NSAIDs; Translations: [NSAIDS (NON-STEROIDAL ANTI-INFLAMMATO RY DRUG)] Propensity to adverse reactions to drug (disorder) 7 GI Upset [facility] Repository (20 sources) oxyCODONE; Translations: [OXYCODONE] Drug Allergy 8 Intolerance [facility] Repository (20 sources) Phenothiazine; Translations: [PHENOTHIAZINES ] Propensity to adverse reactions to drug (disorder) 4 [facility] Rep[facility] (20 sources) predniSONE; Translations: [PREDNISONE] Drug Allergy 5 Unknown [facility] Repository (20 sources) promethazine; Translations: [PROMETHAZINE HCL] Drug Allergy 7 Itching [facility] Rep[facility] (20 sources) Quinolones (Antibiotic); Translations: [QUINOLONES] Propensity to adverse reactions to drug (disorder) 4 [facility] Repository (20 sources) magda leaf allergenic extract; Translations: [MAGDA] Drug Allergy 5 [facility] (20 sources) sulindac; Translations: [SULINDAC] Drug Allergy 5 Mental Status Change [facility] Repository (20 sources) traMADol; Translations: [TRAMADOL] Drug Allergy 5 Itching [facility] Repository (3 sources) OTHER; Translations: [OTHER] Propensity to adverse reactions (disorder) 5 AOF [facility] Repository (20 sources) OPIOIDS - MORPHINE ANALOGUES; Translations: [OPIOIDS - MORPHINE ANALOGUES] Propensity to adverse reactions to drug (disorder) 4 [facility] Repository (20 sources) CLEANING SUPPLIES [Other] Propensity to adverse reactions 5 [facility] Work Phone: (20 sources) IVP CONTRAST [Other] Propensity to adverse reactions 5 Intolerance [facility] Work Phone: (7 sources) Bee/Wasp/Ant venom Allergy to substance Anaphylaxis (disorder) [facility] (9 sources) corn extract; Translations: [corn] Drug Allergy 5 Eruption of skin (disorder) [facility] (7 sources) HYDROmorphone; Translations: [hydromorphone] Drug Allergy [facility] (7 sources) Promethazine; Translations: [promethazine] Drug Allergy [facility] (7 sources) Purified Protein Derivative of Tuberculin; Translations: [tuberculin purified protein derivative] Drug Allergy Lactose intolerance [facility] (7 sources) Milk Products Food allergy Eruption of skin (disorder) [facility] (7 sources) Tomatoes Food allergy [facility] (7 sources) Apricots Food allergy Eruption of skin (disorder) [facility] (9 sources) Peas; Translations: [peas] Food allergy 5 Eruption of skin (disorder) [facility] (15 sources) Amoxicillin; Translations: [amoxicillin trihydrate] Drug Allergy 9 [facility] (14 sources) HYDROcodone Drug Allergy [address] [facility] (15 sources) Shellfish; Translations: [shellfish derived] Propensity to adverse reactions 9 [facility] (15 sources) Iodinated Contrast Media; Translations: [Iodinated Contrast Media] [facility] (15 sources) potassium clavulanate; Translations: [potassium clavulanate] Propensity to adverse reactions 9 [facility] (1 source) tomato allergenic extract Drug Allergy 5 [facility] (2 sources) BCG (Bacillus Calmette-Zohra ) vacc; Translations: [BCG (Bacillus Calmette-Zohra ) vacc] Allergy to substance [address] [facility] (1 source) bee venom protein (honey bee) Allergy to substance 5 [facility] (1 source) Milk Containing Products (Dairy) Allergy to substance 5 [facility] (1 source) HYDROcodone Drug Allergy [address] [facility] Repository (1 source) tomato allergenic extract Drug Allergy [address] [facility] Repository (1 source) Milk Containing Products (Dairy) Drug allergy (disorder) [address] [facility] Repository (1 source) bee venom protein (honey bee) Drug allergy (disorder) [facility] Repository Medications Current Medications Medication Drug [...] Start: 03-23-2016 PERCOCET 5-325 MG TABS OXYCODONE-ACETAMINOPHEN [id number] Karthikeyan Hall Start: 03-23-2016 PERCOCET 5-325 MG TABS OXYCODONE-ACETAMINOPHEN [id number] Karthikeyan Hall albuterol 0.83 mg/ml inhalation solution [...] 2022 12:00am take 1 capsule [facility] every eight hours as needed benzonatate (TESSALON [...] 12:00am Start: 11-22-2020 take 1 tablet by [facility] every eight hours as needed for constipation [...] on above: Take 3 tablets by [facility] daily at bedtime. Per psychiatry. collagenase 0.25 unt/mg topical ointment (11 sources) Collagen-specific Enzyme collagenase (SANTYL) ointment Apply to affected area once daily. 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 [id number] 0.3 ml EPINEPHrine 1 mg/ml auto-injector (20 [...] Comment on above: Take 1 capsule by [facility] daily before breakfast. Selena's Docudose. Flash Glucose [...] Comment on above: Take 1 capsule by [facility] once daily. fluticasone propionate 0.05 mg/actuat metered [...] Start: 11-22-2020 take 1 dose nasal ro [place] once daily in the morning Flonase 50 mcg/inh nasal spray Dose = 2 spray(s), Nostril, each, qAM, 0 Refill(s) Start Date: 02/14/21 Status: Ordered Repeat number: 1 Start: 02-01-2017 take 1 spray(s) nasa l route once daily fluticasone (FLONASE) 50 mcg/actuation nasal spray Use 1 [place] in each nostril once daily. . 0 02/01/2017 Active Start: 03-23-2016 FLONASE ALLERG Y RELIEF 50 MCG/ACT SUSP FLUTICASONE PROPIONATE [id number] Karthikeyan Hall Start: 03-23-2016 FLONASE ALLERG Y RELIEF 50 MCG/ACT SUSP FLUTICASONE PROPIONATE [id number] Karthikeyan Hall Start: 09-01-2014 take 2 spray(s) nasa l route once daily fluticasone (FLONASE) 50 mcg/actuation nasal spray Indications: Rhinitis Use 2 Sprays in each nostril once daily. 1 Bottle 11 09/01/2014 Active Comment on above: Use 2 Sprays in each nostril once daily. Use 1 [place] in each nostril once daily. . Fluticasone-Umeclidin- Vilanter (12 sources) Start: 12-18-2022 Eyghaqkgzto-Byjoumtsq-Oy lanter (Trelegy Ellipta) 200-62.5-25 mcg blister with device Active 1 NMA INHALATION DAILY December 18, 2022 12:00am Start: 12-18-2022 Fluticasone-Um eclidin-Vilanter (Trelegy Ellipta) 200-62.5-25 mcg blister with device Active 1 INH INHALATION DAILY December 17, 2022 11:00pm Start: 12-18-2022 Fluticasone-Um eclidin-Vilanter (Trelegy Ellipta) 200-62.5-25 mcg blister with device Active 1 INH INHALATION DAILY December 18, 2022 12:00am pzgwuwhgkot-wdmbxdkuv-udtgda er (TRELEGY ELLIPTA) 200-62.5-25 mcg inhalation powder (11 sources) take 1 puff(s) by inhalation once daily ykthleqeizm-nklodpsdw-tmfplrfp (TRELEGY ELLIPTA) 200-62.5-25 mcg inhalation powder Inhale 1 Puff as instructed once daily. Active take 1 puff(s) by in halation once daily kkjnqlprbfz-zfkxhlkpv-oikyqezm (TRELEGY ELLIPTA) 200-62.5-25 mcg inhalation powder Inhale [...] FLEXTO UCH 100 UNIT/ML SOPN INSULIN DEGLUDEC [id number] Karthikeyan Hall Start: 03-23-2016 TRESIBA FLEXTO UCH 100 UNIT/ML SOPN INSULIN DEGLUDEC [id number] Karthikeyan Hall 1.5 ml insulin glargine 300 [...] WITH LUNCH November 27, 2023 12:00am Insulin [place], Disposable, (PEN NEEDLE) 29 x 1/2 ndle [...] spray(s) nasa l route twice daily Ipratropium Avis Active 2 SPRAY INTRANASAL TWICE A DAY [...] Maximum 6 puffs daily. lactobacillus rhamnosus gg [id number] unt oral capsule (1 source) Start: take [...] Start: 02-01-2017 take 2 tablets [facility] every twelve hours as needed loperamide HCl (IMODIUM) 2 mg tab Take 4 mg by mouth twice daily as needed for diarrhea. 0 02/01/2017 Active Start: 02-01-2017 take 1 capsule by [facility] every six hours as needed loperamide (IMODIUM) 2 mg cap(s) Take 1 capsule by mouth four times daily as needed. 0 02/01/2017 Active Start: 03-23-2016 IMODIUM A-D 1 MG/7.5ML LIQD LOPERAMIDE HCL [id number] Karthikeyan Hall Start: 03-23-2016 IMODIUM A-D 1 MG/7.5ML LIQD LOPERAMIDE HCL [id number] Karthikeyan Hall Comment on above: Take 1 capsule by [facility] four times daily as needed. Take 4 [...] 400 (240 Mg) MG TABS MAGNESIUM OXIDE [id number] Karthikeyan Hall Start: 03-23-2016 MAGNESIUM OXID E 400 (240 Mg) MG TABS MAGNESIUM OXIDE [id number] Karthikeyan Hall Comment on above: Take 1 [...] 12:00am Start: 02-01-2017 take 1 tablet by jessica th once daily at bedtime OLANZapine (ZYPREXA) [...] by mouth every morning. polyethylene glycol 3350 68758 mg powder for oral solution (19 sources) [...] 1:21pm Start: 03-23-2016 take 1 capsule by [facility] twice daily Pregabalin 100 mg capsule Active 100 mg PO TWICE A DAY January 16, 2023 12:00am Comment on above: Take 1 capsule [facility] twice daily. raNITIdine 150 mg oral tablet (20 sources) Histamine-2 Receptor Antagonist Start: 4 take 1 tablet by mouth once daily at bedtime ranitidine 150 mg tablet Indications: Esophageal reflux Take 1 tablet by mouth daily at bedtime. 30 tablet 11 10/05/2013 Active Comment on above: Take 1 tablet by [facility] daily at bedtime. 0.25 mg, 0.5 mg [...] TEARS 0.1-0.3 % SOLN ARTIFICIAL TEAR SOLUTION [id number] Karthikeyan Hall ARTIFICIAL TEAR SOLUTION (1 source) Start: 03-23-2016 ARTIFICIAL TEARS 0.1-0.3 % SOLN ARTIFICIAL TEAR SOLUTION [id number] Karthikeyan Hall aspirin 81 mg chewable tablet (15 sources) Nonsteroidal Anti-inflammatory Drug Start: 03-23-2016 ASPIRIN 81 MG CHEW ASPIRIN [id number] Karthikeyan Hall Start: 11-03-2013 End: 01-31-2022 take [...] MAXIMUM STRENGTH 525 MG/15ML SUSP BISMUTH SUBSALICYLATE [id number] Karthikeyan Hall Start: 03-23-2016 BISMATROL MAXI MUM STRENGTH 525 MG/15ML SUSP BISMUTH SUBSALICYLATE 56889823263 Karthikeyan Hall Bupivacaine (1 source) Amide Local [...] Start: 03-23-2016 TRULICITY 1.5 MG/0.5ML SOPN DULAGLUTIDE [id number] Karthikeyan Hall Start: 03-23-2016 TRULICITY 1.5 MG/0.5ML SOPN DULAGLUTIDE 19499613698 Karthikeyan Hall dyclonine hydrochloride 2 mg oral [...] 03-23-2016 LACTAID 3000 U NIT TABS LACTASE [id number] Karthikeyan Hall LINACLOTIDE (9 sources) Guanylate Cyclase-C Agonist Start: 03-23-2016 LINZESS 145 MCG CAPS LINACLOTIDE [id number] Karthikeyan [place] Rafael Start: 03-23-2016 LINZESRubén 145 G CAPS LINACLOTIDE 65741721199 Karthikeyan Rubén Rafael LORazepam 1 mg oral [...] Start: 03-23-2016 SEROQUEL XR 30 0 MG [id number] QUETIAPINE FUMARATE [id number] Karthikeyan Hall Start: 03-23-2016 SEROQUEL XR 20 0 MG OQ73I-WNG QUETIAPINE FUMARATE [id number] Karthikeyan Hall Start: 03-23-2016 SEROQUEL XR 20 0 MG [id number] QUETIAPINE FUMARATE 55351166175 Karthikeyan Hall Start: 03-23-2016 SEROQUEL XR 30 0 MG JQ48S-JYL QUETIAPINE FUMARATE 97157381797 Karthikeyan Hall traMADol hydrochloride 50 mg oral [...] TRAZODONE HCL 150 MG TABS TRAZODONE HCL 05932553574 Karthikeyan Hall vortioxetine 20 mg oral tablet (9 sources) Start: 03-23-2016 TRINTELLIX 20 MG TABS VORTIOXETINE HBR 49790853221 Karthikeyan Hall zolpidem tartrate 10 mg oral [...] aftercare (1 source) Drug therapy finding; Translations: [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 Normal [facility] Abdomen/Pelvis without Conto n 09-27-2024 Abdomen/Pelvis without Cont [facility] Imaging Services [address] [place] [address] Abdomen/Pelvis without Cont MR#: [id number] Acct: [id number] Name: JULIANA MERIDA Rep #: [id number] : 1960 F 63 From: Jaleel Loaiza MD PCP: Mariah Guevara MD Status: REG ER Study: Abdomen/Pelvis without Cont Date of Exam: 09/12 01/06 Exam# [id number] Ordering Dr: Gregorio Cochran DO PROCEDURE: ABDOMEN/PELVIS [...] abdominal and pelvic viscera. There is now zmte-eruphfz-vcod-right mild basilar patchy ill-defined ground-glass opacities of [...] dilation or free air. Status post appendectomy. [place] artifact from spinal stimulator device. Aortoiliac atherosclerotic calcification. No abdominal aortic aneurysm. The bladder appears within limits. No free fluid seen. Status post hysterectomy. The ovaries appear within limits on noncontrast imaging. [place] artifact from left femoral gamma nail. Small fat containing left inguinal hernia without stranding again noted. CT/Abdomen/Pelvis without Cont IMPRESSION: There is now gyqc-eciicat-byjc-right mild basilar patchy ill-defined ground-glass opacities of [...] the liver. Status post cholecystectomy. Reading Location: [id number] CC: Mariah Guevara MD; Dr. Gregorio Cochran DO Mixer Blender: Signed Normal [facility] Absolute neutrophil countOrd ered By: Gregorio Cochran on 09-27-2024 Neutrophils (Bld) [#/Vol] 6.8 10*3/uL 2.0-7.[address] [facility] Anion gap in Serum or Plasma Ordered By: Gregorio Cochran on 09-27-2024 Anion gap [Moles/Vol] 10 mmol/L - [facility] BUN/creatinine ratioOrdered By: Gregorio Cochran on 09-27-2024 Urea nitrogen/Creatinine [Mass ratio] 12.7 mg/mg - [facility] Basic Metabolic Profile (BMP )on 09-27-2024 BUN/CRE 12.7 RATIO Normal - [facility] Comment on above: Performed By: #### L 500.2500, L100.0100 #### [facility] [address] [place], [address] Calcium [Mass/Vol] 9.5 mg/dL Normal 7.6-11.0 [facility] Comment on above: Performed By: #### L 500.2500, L100.0100 #### [facility] [address] [place], [address] Chloride [Moles/Vol] 99 mmol/L Normal 98-108 [facility] Comment on above: Performed By: #### L 500.2500, L100.0100 #### [facility] [address] [place], [address] CO2 [Moles/Vol] 27.1 mmol/L Normal 21.0-32.[address] [facility] Comment on above: Performed By: #### L 500.2500, L100.0100 #### [facility] [address] [place], [address] Creatinine [Mass/Vol] 1.37 mg/dL High 0.70-1.20 [facility] Comment on above: Performed By: #### L 500.2500, L100.0100 #### [facility] [address] [place], [address] GAP 10 Normal - [facility] Comment on above: Performed By: #### L 500.2500, L100.0100 #### [facility] [address] [place], [address] GFR/1.73 sq M.predicted among non-blacks MDRD (S/P/Bld) [Vol rate/Area] 44 mL/min/{1.73_m2} Low >[address] [facility] Comment on above: Result Comment: mL/m in/1.73m2 CKD-EPI Creatinine Equation (2020) Performed By: #### L 500.2500, L100.0100 #### [facility] [address] [place], [address] Glucose [Mass/Vol] 254 mg/dL High 70-99 [facility] Comment on above: Performed By: #### L 500.2500, L100.0100 #### [facility] [address] [place], [address] Potassium [Moles/Vol] 4.0 mmol/L Normal 3.3-5.1 [facility] Comment on above: Performed By: #### L 500.2500, L100.0100 #### [facility] [address] [place], [address] Sodium [Moles/Vol] 136 mmol/L Normal 133-145 [facility] Comment on above: Performed By: #### L 500.2500, L100.0100 #### [facility] [address] [place], [address] Urea nitrogen [Mass/Vol] 17 mg/dL Normal 4-[address] [facility] Comment on above: Performed By: #### L 500.2500, L100.0100 #### [facility] [address] [place], [address] Basophil percentageOrdered B y: Gregorio Cochran on 09-27-2024 Basophils/100 WBC (Bld) 0.5 % 0-[address] [facility] Bilirubin Test strip Ql (U)O rdered By: Gregorio Cochran on 09-27-2024 Bilirubin Ql (U) Negative Negative [facility] CBC W/Diff, Automatedon 09-12 Absolute Lymph 2.73 X10 3/uL Normal 0.83-4.[address] [facility] Comment on above: Performed By: #### L 500.2500, L100.0100 #### [facility] [address] [place], [address] Absolute Neut 6.8 X10 3/uL Normal 2.0-7.[address] [facility] Comment on above: Performed By: #### L 500.2500, L100.0100 #### [facility] [address] [place], [address] Basophils/100 WBC (Bld) 0.5 % Normal 0-[address] [facility] Comment on above: Performed By: #### L 500.2500, L100.0100 #### [facility] [address] [place], [address] Eosinophils/100 WBC (Bld) 0.8 % Normal 0-[address] [facility] Comment on above: Performed By: #### L 500.2500, L100.0100 #### [facility] [address] [place], [address] Erythrocyte distribution width (RBC) [Ratio] 13.6 % Normal 11.6-14.[address] [facility] Comment on above: Performed By: #### L 500.2500, L100.0100 #### [facility] [address] [place], [address] Hematocrit (Bld) [Volume fraction] 43.9 % Normal 37-[address] [facility] Comment on above: Performed By: #### L 500.2500, L100.0100 #### [facility] [address] [place], [address] Hemoglobin (Bld) [Mass/Vol] 14.2 g/dL Normal 12.0-15.[address] [facility] Comment on above: Performed By: #### L 500.2500, L100.0100 #### [facility] [address] [place], [address] IG% 0.500 Normal 0.0-0.[address] [facility] Comment on above: Result Comment: IG% - Immature Granulocytes (promyelocytes, myelocytes and metamyelocytes) > 1% indicates that a LEFT SHIFT is Present. Performed By: #### L 500.2500, L100.0100 #### [facility] [address] [place], [address] Lymphocytes/100 WBC (Bld) 25.9 % Normal 19-[address] [facility] Comment on above: Performed By: #### L 500.2500, L100.0100 #### [facility] [address] [place], [address] MCH (RBC) [Entitic mass] 29.3 pg Normal 27.0-32.[address] [facility] Comment on above: Performed By: #### L 500.2500, L100.0100 #### [facility] [address] [place], [address] MCHC (RBC) [Mass/Vol] 32.3 g/dL Normal 32-36 [facility] Comment on above: Performed By: #### L 500.2500, L100.0100 #### [facility] [address] [place], [address] MCV (RBC) [Entitic vol] 90.7 fL Normal 81-[address] [facility] Comment on above: Performed By: #### L 500.2500, L100.0100 #### [facility] [address] [place], [address] Monocytes/100 WBC (Bld) 7.7 % Normal 0-[address] [facility] Comment on above: Performed By: #### L 500.2500, L100.0100 #### [facility] [address] [place], [address] Neutrophils/100 WBC (Bld) 64.6 % Normal 47-[address] [facility] Comment on above: Performed By: #### L 500.2500, L100.0100 #### [facility] [address] [place], [address] Nucleated RBC (Bld) [#/Vol] 0 10*3/uL Normal 0-[address] [facility] Comment on above: Performed By: #### L 500.2500, L100.0100 #### [facility] [address] [place], [address] Platelet mean volume (Bld) [Entitic vol] 10.1 fL Normal 6.2-12.[address] [facility] Comment on above: Performed By: #### L 500.2500, L100.0100 #### [facility] [address] [place], [address] Platelets (Bld) [#/Vol] 214 10*3/uL Normal 150-[address] [facility] Comment on above: Performed By: #### L 500.2500, L100.0100 #### [facility] [address] [place], [address] RBC (Bld) [#/Vol] 4.84 10*6/uL Normal 4.2-5.4 [facility] Comment on above: Performed By: #### L 500.2500, L100.0100 #### [facility] [address] [place], [address] RDW SD 44.8 fl High 35.1-43.[address] [facility] Comment on above: Performed By: #### L 500.2500, L100.0100 #### [facility] [address] [place], [address] WBC (Bld) [#/Vol] 10.5 10*3/uL Normal 4.4-11.0 [facility] Comment on above: Performed By: #### L 500.2500, L100.0100 #### [facility] [address] [place], [address] Carbon dioxide, total [Moles /volume] in Central venous bloodOrdered By: Gregorio Cochran on 09-27-2024 CO2 [Moles/Vol] 27.1 mmol/L 21.0-32.[address] [facility] Chloride assayOrdered By: Miguel Cochran on 09-27-2024 Chloride [Moles/Vol] 99 mmol/L 98-108 [facility] Emergency Department Summary on 09-27-2024 Emergency Department Summary [facility] Medical Records Department [address] [place] [address] Emergency Department Summary 09/27/24 MR#: [id number] Acct: [id number] Name: JULIANA MERIDA YANELI Rep #: [id number] : 1960 63 From: Gregorio Cochran DO PCP: Mariah Guevara MD Status:DEP ER Location: ED HPI History of Present Illness Chief Complaint: Flank Pain Informant: patient and EMS Narrative Narrative: 63-year-old female from [facility] presenting to the emergency room via [...] She denies any dysuria frequency or hematuria [facility] Medical History Lives in [facility] Hx of fracture of hip Wears glasses [...] bisacodyl 10 mg rectal suppository 10 mg ND .Q24 PRN PRN constipati on 12/18/22 Unknown [...] 3 mg (more content not included)... Normal [facility] Eosinophil percentageOrdered By: Gregorio Cochran on 09-27-2024 Eosinophils/100 WBC (Bld) 0.8 % 0-[address] [facility] Epithelial cells.squamous LM Ql (Urine sed)Ordered By: Gregorio Cochran on 09-27-2024 Epithelial cells.squamous LM.HPF (Urine sed) [#/Area] 0 /[HPF] 5-[address] [facility] Erythrocyte distribution wid th ratioOrdered By: Gregorio Cochran on 09-27-2024 Erythrocyte distribution width (RBC) [Ratio] 13.6 % 11.6-14.[address] [facility] Erythrocyte distribution wid th standard deviationOrdered By: Gregorio Cochran on 09-27-2024 Erythrocyte distribution width (RBC) [Entitic vol] 44.8 fL High 35.1-43.[address] [facility] GFR/1.73 sq M.predicted augustin g non-blacks MDRD (S/P/Bld) [Vol rate/Area]Ordered By: Gregorio Cochran on 09-27-2024 Estimated GFR (MDRD) Non-Af Amer 44 Low >[address] [facility] Comment on above: mL/min/1.73m2 CKD-EP I Creatinine Equation (2020) Glucose Ql (U)Ordered By: Miguel Cochran on 09-27-2024 Urine Glucose (UA) Normal mg/dl Normal [facility] Hematocrit Auto (Bld) [Volum e fraction]Ordered By: Gregorio Cochran on 09-27-2024 Hematocrit (Bld) [Volume fraction] 43.9 % 37-[address] [facility] Hemoglobin measurementOrdere d By: Gregorio Cochran on 09-27-2024 Hemoglobin (Bld) [Mass/Vol] 14.2 g/dL 12.0-15.[address] [facility] Immature granulocytes/100 WB C Auto (Bld)Ordered By: Gregorio Cochran on 09-27-2024 Immature granulocytes/100 WBC (Bld) 0.500 % 0.0-0.[address] [facility] Comment on above: IG% - Immature Granu locytes (promyelocytes, myelocytes and metamyelocytes) > 1% indicates that a LEFT SHIFT is Present. Ketones Test strip Ql (U)Ord ered By: Gregorio Cocharn on 09-27-2024 Ketones Ql (U) Negative Negative [facility] Lymphocytes Auto (Unsp spec) [#/Vol]Ordered By: Gregorio Cochran on 09-27-2024 Lymphocytes (Bld) [#/Vol] 2.73 10*3/uL 0.83-4.[address] [facility] Lymphocytes/100 WBC Auto (Un sp spec)Ordered By: Gregorio Cochran on 09-27-2024 Lymphocytes/100 WBC (Bld) 25.9 % 19-[address] [facility] MCV (mean corpuscular volume ) determinationOrdered By: Gregorio Cochran on 09-27-2024 MCV (RBC) [Entitic vol] 90.7 fL 81-[address] [facility] Mean corpuscular hemoglobin (MCH) determinationOrdered By: Gregorio Cochran on 09-27-2024 MCH (RBC) [Entitic mass] 29.3 pg 27.0-32.[address] [facility] Mean corpuscular hemoglobin concentration (MCHC) determinationOrdered By: Gregorio Cochran on 09-27-2024 MCHC (RBC) [Mass/Vol] 32.3 g/dL 32-36 [facility] Mean platelet volume determi nationOrdered By: Gregorio Cochran on 09-27-2024 Platelet mean volume (Bld) [Entitic vol] 10.1 fL 6.2-12.[address] [facility] Microscopic analysis of urin e for red blood cells (RBC)Ordered By: Gregorio Cochran on 09-27-2024 Urine RBC 0-5 SEEN /hpf 0-[address] [facility] Monocyte percentageOrdered B y: Gregorio Cochran on 09-27-2024 Monocytes/100 WBC (Bld) 7.7 % 0-[address] [facility] Mucus LM Ql (Urine sed)Order ed By: Gregorio Cochran on 09-27-2024 Mucus Ql (Urine sed) 0 SEEN /hpf [facility] Neutrophil percentageOrdered By: Gregorio Cochran on 09-27-2024 Neutrophils/100 WBC (Bld) 64.6 % 47-[address] [facility] Nitrite Test strip Ql (U)Ord ered By: Gregorio Cochran on 09-27-2024 Nitrite Ql (U) Negative Negative [facility] Nucleated red blood cell per centageOrdered By: Gregorio Cochran on 09-27-2024 Nucleated RBC/100 WBC (Bld) [Ratio] 0 % 0-[address] [facility] Platelet countOrdered By: Miguel Cochran on 09-27-2024 Platelets (Bld) [#/Vol] 214 10*3/uL 150-[address] [facility] Potassium (Unsp spec) [Mass/ Vol]Ordered By: Gregorio Cochran on 09-27-2024 Potassium [Moles/Vol] 4.0 mmol/L 3.3-5.1 [facility] Protein Test strip Ql (U)Ord ered By: Gregorio Cochran on 09-27-2024 Protein Ql (U) Negative Negative [facility] RBC Auto (Bld) [#/Vol]Ordere d By: Gregorio Cochran on 09-27-2024 RBC (Bld) [#/Vol] 4.84 10*6/uL 4.2-5.4 [facility] Serum creatinine measurement (mass/volume)Ordered By: Gregorio Cochran on 09-27-2024 Creatinine [Mass/Vol] 1.37 mg/dL High 0.70-1.20 [facility] Serum glucose measurement (m ass/volume)Ordered By: Gregorio Cochran on 09-27-2024 Glucose [Mass/Vol] 254 mg/dL High 70-99 [facility] Serum or plasma calcium fabi urement (mass/volume)Ordered By: Gregorio Cochran on 09-27-2024 Calcium [Mass/Vol] 9.5 mg/dL 7.6-11.0 [facility] Serum or plasma urea nitroge n measurement (mass/volume)Ordered By: Gregorio Cochran on 09-27-2024 Urea nitrogen [Mass/Vol] 17 mg/dL 4-[address] [facility] Sodium levelOrdered By: Camron Cochran on 09-27-2024 Sodium [Moles/Vol] 136 mmol/L 133-145 [facility] Urinalysis, Completeon 09-27 BACTERIA 3+ /hpf Normal None Seen [facility] Comment on above: Order Comment: COLLE CTOR TO SPECIFY Performed By: #### L 400.0001 ####[facility] [address] [place], [address] EPI,SQUAMOUS 0-5 SEEN Normal 5-[address] [facility] Comment on above: Order Comment: MASHA CTOR TO SPECIFY Performed By: #### L 400.0001 ####[facility] [address] [place], [address] RBC 0-5 SEEN Normal 0-[address] [facility] Comment on above: Order Comment: MASHA CTOR TO SPECIFY Performed By: #### L 400.0001 ####[facility] [address] [place], [address] WBC 0-5 SEEN Normal 0-[address] [facility] Comment on above: Order Comment: MASHA CTOR TO SPECIFY Performed By: #### L 400.0001 ####[facility] [address] [place], [address] Mucus Ql (Urine sed) 0 SEEN Normal [facility] Comment on above: Order Comment: MASHA CTOR TO SPECIFY Performed By: #### L 400.0001 ####[facility] [address] [place], [address] Urine blood detectionOrdered By: Gregorio Cochran on 09-27-2024 Urine Occult Blood 25 /ul High Negative [facility] Urine clarityOrdered By: Kris Cochran on 09-27-2024 Clarity (U) Clear Clear [facility] Urine color determinationOrd ered By: Gregorio Cochran on 09-27-2024 Color (U) Yellow Yellow [facility] Urine leukocyte esterase det ection by dipstickOrdered By: Gregorio Cochran on 09-27-2024 Leukocyte esterase Test strip Ql (U) 25 /ul High Negative [facility] Urine pHOrdered By: Gregorio mercer on 09-27-2024 pH (U) 6.5 [pH] 5.0 - 8.[address] [facility] Urine sediment bacteria coun t by microscopy (number/high power field)Ordered By: Gregorio Cochran on 09-27-2024 Bacteria LM.HPF (Urine sed) [#/Area] 3 /[HPF] None Seen [facility] Urine specific gravity measu rementOrdered By: Gregorio Cochran on 09-27-2024 Specific gravity (U) [Rel density] 1.010 1.002-1.[address] [facility] Urobilinogen Ql (U)Ordered B y: Gregorio Cochran on 09-27-2024 Urine Urobilinogen Normal mg/dl Normal [facility] White blood cell (WBC) count Ordered By: Gregorio Cochran on 09-27-2024 WBC (Bld) [#/Vol] 10.5 10*3/uL 4.4-11.0 [facility] White blood cell countOrdere d By: Gregorio Cochran on 09-27-2024 Urine WBC 0-5 SEEN /hpf 0-[address] [facility] Abdomen/Pelvis without Conto n 09-12-2024 Abdomen/Pelvis without Cont [facility] Imaging Services [address] [place] [address] Abdomen/Pelvis without Cont MR#: [id number] Acct: [id number] Name: JULIANA MERIDA Rep #: [id number] : 1960 F 63 From: Ronaldo Stevenson PCP: Mariah Guevara MD Status: [facility] ER Study: Abdomen/Pelvis without Cont Date of Exam: 08/08 Exam# [id number] Ordering Dr: Dino Pena MD PROCEDURE: ABDOMEN/PELVIS [...] use of iterative reconstruction technique). Reading Location: [facility] CC: Mariah Guevara MD; Dr. Dino Pena MD Mixer Blender: Signed Normal [facility] Absolute neutrophil countOrd ered By: Dnio Pena on 09-12-2024 Neutrophils (Bld) [#/Vol] 13.0 10*3/uL High 2.0-7.[address] [facility] Amorphous sediment detection in urine sediment by light microscopyOrdered By: Dino Pena on 09-12-2024 Amorphous sediment LM Ql (Urine sed) 1+ URATE [facility] BUN/creatinine ratioOrdered By: Dino Pena on 09-12-2024 Urea nitrogen/Creatinine [Mass ratio] 16.2 mg/mg 10- [facility] Basic Metabolic Profile (BMP )on 09-12-2024 Anion gap [Moles/Vol] 14 mmol/L Normal 5-15 [facility] Comment on above: Performed By: #### L 100.0100, L500.2500 ####[facility] [address] [place], [address] BUN/CRE 16.2 RATIO Normal - [facility] Comment on above: Performed By: #### L 100.0100, L500.2500 ####[facility] [address] [place], [address] Calcium [Mass/Vol] 9.3 mg/dL Normal 7.6-11.0 [facility] Comment on above: Performed By: #### L 100.0100, L500.2500 ####[facility] [address] [place], [address] Chloride [Moles/Vol] 94 mmol/L Low 96-108 [facility] Comment on above: Performed By: #### L 100.0100, L500.2500 ####[facility] [address] [place], [address] CO2 [Moles/Vol] 23.3 mmol/L Normal 22.0-29.[address] [facility] Comment on above: Performed By: #### L 100.0100, L500.2500 ####[facility] [address] [place], [address] Creatinine [Mass/Vol] 1.29 mg/dL High 0.70-1.20 [facility] Comment on above: Performed By: #### L 100.0100, L500.2500 ####[facility] [address] [place], [address] ECRCL 50.34 ml/min Normal 50-[address] [facility] Comment on above: Performed By: #### L 100.0100, L500.2500 ####[facility] [address] [place], [address] GFR/1.73 sq M.predicted among non-blacks MDRD (S/P/Bld) [Vol rate/Area] 47 mL/min/{1.73_m2} Low >[address] [facility] Comment on above: Result Comment: mL/m in/1.73m2 CKD-EPI Creatinine Equation (2020) Performed By: #### L 100.0100, L500.2500 ####[facility] [address] [place], [address] Glucose [Mass/Vol] 239 mg/dL High 70-99 [facility] Comment on above: Performed By: #### L 100.0100, L500.2500 ####[facility] [address] [place], [address] Potassium [Moles/Vol] 4.3 mmol/L Normal 3.3-5.1 [facility] Comment on above: Performed By: #### L 100.0100, L500.2500 ####[facility] [address] [place], [address] Sodium [Moles/Vol] 132 mmol/L Low 133-145 [facility] Comment on above: Performed By: #### L 100.0100, L500.2500 ####[facility] [address] [place], [address] Urea nitrogen [Mass/Vol] 21 mg/dL High 4-[address] [facility] Comment on above: Performed By: #### L 100.0100, L500.2500 ####[facility] [address] [place], [address] Basophil percentageOrdered B y: Dino Pena on 09-12-2024 Basophils/100 WBC (Bld) 0.4 % 0-[address] [facility] Bilirubin Test strip Ql (U)O rdered By: Dino Pena on 09-12-2024 Bilirubin Ql (U) Negative Negative [facility] CBC W/Diff, Automatedon 03-0 Absolute Lymph 2.44 X10 3/uL Normal 0.83-4.[address] [facility] Comment on above: Performed By: #### L 100.0100, L500.2500 ####[facility] [address] [place], [address] Absolute Neut 13.0 X10 3/uL High 2.0-7.[address] [facility] Comment on above: Performed By: #### L 100.0100, L500.2500 ####[facility] [address] [place], [address] Basophils/100 WBC (Bld) 0.4 % Normal 0-[address] [facility] Comment on above: Performed By: #### L 100.0100, L500.2500 ####[facility] [address] [place], [address] Eosinophils/100 WBC (Bld) 0.2 % Normal 0-[address] [facility] Comment on above: Performed By: #### L 100.0100, L500.2500 ####[facility] [address] [place], [address] Erythrocyte distribution width (RBC) [Ratio] 13.6 % Normal 11.6-14.[address] [facility] Comment on above: Performed By: #### L 100.0100, L500.2500 ####[facility] [address] [place], [address] Hematocrit (Bld) [Volume fraction] 45.5 % Normal 37-[address] [facility] Comment on above: Performed By: #### L 100.0100, L500.2500 ####[facility] [address] [place], [address] Hemoglobin (Bld) [Mass/Vol] 14.7 g/dL Normal 12.0-15.[address] [facility] Comment on above: Performed By: #### L 100.0100, L500.2500 ####[facility] [address] [place], [address] IG% 0.700 Normal 0.0-0.[address] [facility] Comment on above: Result Comment: IG% - Immature Granulocytes (promyelocytes, myelocytes and metamyelocytes) > 1% indicates that a LEFT SHIFT is Present. Performed By: #### L 100.0100, L500.2500 ####[facility] [address] [place], [address] Lymphocytes/100 WBC (Bld) 14.6 % Low 19-[address] [facility] Comment on above: Performed By: #### L 100.0100, L500.2500 ####[facility] [address] [place], [address] MCH (RBC) [Entitic mass] 28.9 pg Normal 27.0-32.[address] [facility] Comment on above: Performed By: #### L 100.0100, L500.2500 ####[facility] [address] [place], [address] MCHC (RBC) [Mass/Vol] 32.3 g/dL Normal 32-36 [facility] Comment on above: Performed By: #### L 100.0100, L500.2500 ####[facility] [address] [place], [address] MCV (RBC) [Entitic vol] 89.4 fL Normal 81-[address] [facility] Comment on above: Performed By: #### L 100.0100, L500.2500 ####[facility] [address] [place], [address] Monocytes/100 WBC (Bld) 6.7 % Normal 0-[address] [facility] Comment on above: Performed By: #### L 100.0100, L500.2500 ####[facility] [address] [place], [address] Neutrophils/100 WBC (Bld) 77.4 % High 47-[address] [facility] Comment on above: Performed By: #### L 100.0100, L500.2500 ####[facility] [address] [place], [address] Nucleated RBC (Bld) [#/Vol] 0 10*3/uL Normal 0-[address] [facility] Comment on above: Performed By: #### L 100.0100, L500.2500 ####[facility] [address] [place], [address] Platelet mean volume (Bld) [Entitic vol] 10.2 fL Normal 6.2-12.[address] [facility] Comment on above: Performed By: #### L 100.0100, L500.2500 ####[facility] [address] [place], [address] Platelets (Bld) [#/Vol] 272 10*3/uL Normal 150-[address] [facility] Comment on above: Performed By: #### L 100.0100, L500.2500 ####[facility] [address] [place], [address] RBC (Bld) [#/Vol] 5.09 10*6/uL Normal 4.2-5.4 [facility] Comment on above: Performed By: #### L 100.0100, L500.2500 ####[facility] [address] [place], [address] RDW SD 44.4 fl High 35.1-43.[address] [facility] Comment on above: Performed By: #### L 100.0100, L500.2500 ####[facility] [address] [place], [address] WBC (Bld) [#/Vol] 16.8 10*3/uL High 4.4-11.0 [facility] Comment on above: Performed By: #### L 100.0100, L500.2500 ####[facility] [address] [place], [address] Carbon dioxide measurementOr dered By: Dino Pena on 09-12-2024 CO2 [Moles/Vol] 23.3 mmol/L 22.0-29.[address] [facility] Chloride measurementOrdered By: Dino Pena on 09-12-2024 Chloride [Moles/Vol] 94 mmol/L Low 96-108 [facility] Emergency Department Summary on 09-12-2024 Emergency Department Summary [facility] Medical Records Department [address] [place] [address] Emergency Department Summary 09/12/24 MR#: [id number] Acct: [id number] Name: JULIANA MERIDA Rep #: [id number] : 1960 63 From: Dino Pena MD PCP: Mariah Guevara MD Status:DEP ER Location: ED HPI HPI - GI History of Present Illness Chief Complaint: Flank Pain Informant: patient and EMS Narrative Narrative: 63-year-old [facility] patient presenting with pain in her right [...] ago. She has seen a urologist in [place] but she cannot remember who it was. She denies any hematuria she is on Eliquis. She denies any cough, shortness of breath, fevers or chills or other symptoms. [facility] Medical History Lives in [facility] Hx of fracture of hip Wears glasses [...] bisacodyl 10 mg rectal suppository 10 mg ND .Q24 PRN PRN constipati on 12/18/22 Unknown [...] 12/18/22 Un (more content not included)... Normal [facility] Eosinophil percentageOrdered By: Dino Pena on 09-12-2024 Eosinophils/100 WBC (Bld) 0.2 % 0-[address] [facility] Epithelial cells.squamous LM Ql (Urine sed)Ordered By: Dino Pena on 09-12-2024 Epithelial cells.squamous LM.HPF (Urine sed) [#/Area] 0 /[HPF] 5-[address] [facility] Erythrocyte distribution wid th ratioOrdered By: Dino Pena on 09-12-2024 Erythrocyte distribution width (RBC) [Ratio] 13.6 % 11.6-14.[address] [facility] Erythrocyte distribution wid th standard deviationOrdered By: Dino Pena on 09-12-2024 Erythrocyte distribution width (RBC) [Entitic vol] 44.4 fL High 35.1-43.[address] [facility] Estimation of creatinine bret aranceOrdered By: Dino Pena on 09-12-2024 Estimated Creatinine Clearance Calc 50.34 ml/min 50-[address] [facility] GFR/1.73 sq M.predicted augustin g non-blacks MDRD (S/P/Bld) [Vol rate/Area]Ordered By: Dino Pena on 09-12-2024 Estimated GFR (MDRD) Non-Af Amer 47 Low >[address] [facility] Comment on above: mL/min/1.73m2 CKD-EP I Creatinine Equation (2020) Glucose Ql (U)Ordered By: Navya Pena on 09-12-2024 Urine Glucose (UA) Normal mg/dl Normal [facility] Hematocrit Auto (Bld) [Volum e fraction]Ordered By: Dino Pena on 09-12-2024 Hematocrit (Bld) [Volume fraction] 45.5 % 37-[address] [facility] Hemoglobin measurementOrdere d By: Dino Pena on 09-12-2024 Hemoglobin (Bld) [Mass/Vol] 14.7 g/dL 12.0-15.[address] [facility] Immature granulocytes/100 WB C Auto (Bld)Ordered By: Dino Pena on 09-12-2024 Immature granulocytes/100 WBC (Bld) 0.700 % 0.0-0.[address] [facility] Comment on above: IG% - Immature Granu locytes (promyelocytes, myelocytes and metamyelocytes) > 1% indicates that a LEFT SHIFT is Present. Ketones Test strip Ql (U)Ord ered By: Dino Pena on 09-12-2024 Ketones Ql (U) Negative Negative [facility] Lymphocytes Auto (Unsp spec) [#/Vol]Ordered By: Dino Pena on 09-12-2024 Lymphocytes (Bld) [#/Vol] 2.44 10*3/uL 0.83-4.[address] [facility] Lymphocytes/100 WBC Auto (Un sp spec)Ordered By: Dino Pena on 09-12-2024 Lymphocytes/100 WBC (Bld) 14.6 % Low 19-[address] [facility] MCV (mean corpuscular volume ) determinationOrdered By: Dino Pena on 09-12-2024 MCV (RBC) [Entitic vol] 89.4 fL 81-[address] [facility] Mean corpuscular hemoglobin (MCH) determinationOrdered By: Dino Pena on 09-12-2024 MCH (RBC) [Entitic mass] 28.9 pg 27.0-32.[address] [facility] Mean corpuscular hemoglobin concentration (MCHC) determinationOrdered By: Dino Pena on 09-12-2024 MCHC (RBC) [Mass/Vol] 32.3 g/dL 32-36 [facility] Mean platelet volume determi nationOrdered By: Dino Pena on 09-12-2024 Platelet mean volume (Bld) [Entitic vol] 10.2 fL 6.2-12.[address] [facility] Microscopic analysis of urin e for red blood cells (RBC)Ordered By: Dino Pena on 09-12-2024 Urine RBC 25-50 SEEN /hpf 0-[address] [facility] Monocyte percentageOrdered B y: Dino Pena on 09-12-2024 Monocytes/100 WBC (Bld) 6.7 % 0-[address] [facility] Mucus LM Ql (Urine sed)Order ed By: Dino Pena on 09-12-2024 Mucus Ql (Urine sed) 0 SEEN /hpf [facility] Neutrophil percentageOrdered By: Dino Pena on 09-12-2024 Neutrophils/100 WBC (Bld) 77.4 % High 47-[address] [facility] Nitrite Test strip Ql (U)Ord ered By: Dino Pena on 09-12-2024 Nitrite Ql (U) Negative Negative [facility] Nucleated red blood cell per centageOrdered By: Dino Pena on 09-12-2024 Nucleated RBC/100 WBC (Bld) [Ratio] 0 % 0-[address] [facility] Platelet countOrdered By: Navya Pena on 09-12-2024 Platelets (Bld) [#/Vol] 272 10*3/uL 150-[address] [facility] Protein Test strip Ql (U)Ord ered By: Dino Pena on 09-12-2024 Protein Ql (U) 15 mg/dl High Negative [facility] RBC Auto (Bld) [#/Vol]Ordere d By: Dino Pena on 09-12-2024 RBC (Bld) [#/Vol] 5.09 10*6/uL 4.2-5.4 [facility] Serum creatinine measurement (mass/volume)Ordered By: Dino Pena on 09-12-2024 Creatinine [Mass/Vol] 1.29 mg/dL High 0.70-1.20 [facility] Serum glucose measurement (m ass/volume)Ordered By: Dino Pena on 09-12-2024 Glucose [Mass/Vol] 239 mg/dL High 70-99 [facility] Serum or plasma anion gap de termination (moles/volume)Ordered By: Dino Pena on 09-12-2024 Anion gap [Moles/Vol] 14 mmol/L 5-15 [facility] Serum or plasma calcium fabi urement (mass/volume)Ordered By: Dino Pena on 09-12-2024 Calcium [Mass/Vol] 9.3 mg/dL 7.6-11.0 [facility] Serum or plasma potassium me asurementOrdered By: Dino Pena on 09-12-2024 Potassium [Moles/Vol] 4.3 mmol/L 3.3-5.1 [facility] Serum or plasma sodium measu rement (moles/volume)Ordered By: Dino Pena on 09-12-2024 Sodium [Moles/Vol] 132 mmol/L Low 133-145 [facility] Serum or plasma urea nitroge n measurement (mass/volume)Ordered By: Dino Pena on 09-12-2024 Urea nitrogen [Mass/Vol] 21 mg/dL High 4-[address] [facility] Urinalysis, Completeon 09-12 AMORPHOUS 1+ URATE Normal [facility] Comment on above: Order Comment: LEROY TER SPECIMEN Performed By: #### L 400.0001 ####[facility] [address] [place], [address] EPI,SQUAMOUS 0-5 SEEN Normal 5-[address] [facility] Comment on above: Order Comment: LEROY TER SPECIMEN Performed By: #### L 400.0001 ####[facility] [address] [place], [address] RBC 25-50 SEEN Normal 0-[address] [facility] Comment on above: Order Comment: LEROY TER SPECIMEN Performed By: #### L 400.0001 ####[facility] [address] [place], [address] WBC 0-5 SEEN Normal 0-[address] [facility] Comment on above: Order Comment: LEROY TER SPECIMEN Performed By: #### L 400.0001 ####[facility] [address] [place], [address] BACTERIA 0 SEEN Normal None Seen [facility] Comment on above: Order Comment: LEROY TER SPECIMEN Performed By: #### L 400.0001 ####[facility] [address] [place], [address] Mucus Ql (Urine sed) 0 SEEN Normal [facility] Comment on above: Order Comment: LEROY TER SPECIMEN Performed By: #### L 400.0001 ####[facility] [address] [place], [address] Urine blood detectionOrdered By: Dino Pena on 09-12-2024 Urine Occult Blood 250 /ul High Negative [facility] Urine clarityOrdered By: Migdalia Pena on 09-12-2024 Clarity (U) Sl. Cloudy Clear [facility] Urine color determinationOrd ered By: Dino Pena on 09-12-2024 Color (U) Yellow Yellow [facility] Urine leukocyte esterase det ection by dipstickOrdered By: Dino Pena on 09-12-2024 Leukocyte esterase Test strip Ql (U) 25 /ul High Negative [facility] Urine pHOrdered By: Dino Pena on 09-12-2024 pH (U) 5.0 [pH] 5.0 - 8.[address] [facility] Urine sediment bacteria coun t by microscopy (number/high power field)Ordered By: Dino Pena on 09-12-2024 Bacteria LM.HPF (Urine sed) [#/Area] 0 /[HPF] None Seen [facility] Urine specific gravity measu rementOrdered By: Dino Pena on 09-12-2024 Specific gravity (U) [Rel density] 1.020 1.002-1.[address] [facility] Urobilinogen Ql (U)Ordered B y: Dino Pena on 09-12-2024 Urine Urobilinogen Normal mg/dl Normal [facility] White blood cell (WBC) count Ordered By: Dino Becky on 09-12-2024 WBC (Bld) [#/Vol] 16.8 10*3/uL High 4.4-11.0 [facility] White blood cell countOrdere d By: Dino Pena on 09-12-2024 Urine WBC 0-5 SEEN /hpf 0-[address] [facility] CNPNon 07-16-2024 CNPN Telephone (VUELOGICHEUHWN ) -------- JULIANA MERIDA ([id number]) 1960 F Date Time Provider Department 07/16/24 FUNMILAYO POPE During your visit today, we recorded the following information about you: Sandra Dunn 07/16/2024 9:45 AM Signed Prolia- Bath Approved [id number] [facility] Medicare/Portal 07.15.24-07.15.25 2 visits Sandra Corado Legal Editor Allergies As of Date: 07/16/2024 Noted Allergy [...] Date Reviewed: 09/20/2023 Reviewed by: Izabela Harper, ELENA - Fully Assessed Reason for Visit: Medication Preauthorization [914] Cmt: Lucas- Bath Approved [id number] [facility] Medicare/Portal 07.15.24-07.15.25 2 visits Prescriptions as [...] hours as needed for cough. 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 - insulin glargine,hum.rec.anlog (TOUJEO MAX U-300 SOLOSTAR SUBCUTANEOUS) Inject subcutaneously as directed. - lunxzaxauez-tuaykqdrf-yv lanter (TRELEGY ELLIPTA) 200-62.5-25 mcg inhalation powder [...] 50 mcg/actuation (more content not included)... Normal [facility] MA MAMMOGRAM SCREENING BILAT ERAL W/TOMOon 06-05-2024 MA MAMMOGRAM SCREENING BILATERAL W/SHEREE ORIGINAL FROM: [address] [address] PROCEDURE FOR: JULIANA MERIDA [address] [place] [address] Home: PID#: [id number] Exam#: [id number] : 1960 Age: 63 TO: FLORENTIN HANSEN [facility] [address] [place] [address] EXAMINATION: SCREENING DIGITAL BILATERAL MAMMOGRAM WITH TOMOSYNTHESIS, [...] addition to annual mammographic screening per the [employer] [employer]. BIRADS: BI-RADS: 2: Benign RECALL: 1 year screening RECALL TYPE: mammo LETTER SENT: Normal BI-RADS 1 and 2 Interpreted by: Suresh Ruiz MD Preliminary Report By: Suresh Ruiz MD Electronically signed By Suresh Ruiz MD Dictated Date: 06/05/2024 3:28:32 PM Prelim Date: 06/05/2024 3:30:24 PM Sign Date: 06/05/2024 3:30:24 PM Ordering Provider: FLORENTIN HANSEN CLINICAL: BASELINE. Screw Cutter: LASHONDA CHAN RT(R)(M) letter sent: Normal BI-RADS 1 and 2 Mammogram BI-RADS: 2 Benign Normal [facility] Abdomen/Pelvis without Conto n 04-08-2024 Abdomen/Pelvis without Cont [facility] Imaging Services [address] [place], [place] [address] Abdomen/Pelvis without Cont MR#: [id number] Acct: [id number] Name: JULIANA MERIDA YANELI Rep #: [id number] : 1960 F 63 From: Rancho Mares MD PCP: Bianca Palomares MD Status: DEP ER Study: Abdomen/Pelvis without Cont Date of Exam: 03/16 12/05 Exam# [id number] Ordering Dr: Rancho Orozco DO [id number] EXAM: CT ABDOMEN AND PELVIS WITHOUT INTRAVENOUS [...] 4:15 EDT Reading Location ID and State: [facility] / [place] Tel , Service support , CC: Rancho Orozco DO; Bianca Palomares MD Mixer Blender: Signed Normal [facility] Basic Metabolic Profile (BMP )on 04-08-2024 BUN/CRE 19.6 RATIO Normal 10-[address] [facility] Comment on above: Order Comment: RESUL T(S) PREVIOUSLY REPORTED ON MANUAL REQUISITION DURINGDOWNTIME. Performed By: #### L 100.0100, L500.2500, L400.0001 ####[facility] [address] [place], [place], [id number] CA,Total 9.3 mg/dL Normal 8.5-10.[address] [facility] Comment on above: Order Comment: RESUL T(S) PREVIOUSLY REPORTED ON MANUAL REQUISITION DURINGDOWNTIME. Performed By: #### L 100.0100, L500.2500, L400.0001 ####[facility] [address] [place], [address] Chloride [Moles/Vol] 101 mmol/L Normal 98-107 [facility] Comment on above: Order Comment: RESUL T(S) PREVIOUSLY REPORTED ON MANUAL REQUISITION DURINGDOWNTIME. Performed By: #### L 100.0100, L500.2500, L400.0001 ####[facility] [address] [place], [address] CO2 [Moles/Vol] 29.0 mmol/L Normal 21.0-32.[address] [facility] Comment on above: Order Comment: RESUL T(S) PREVIOUSLY REPORTED ON MANUAL REQUISITION DURINGDOWNTIME. Performed By: #### L 100.0100, L500.2500, L400.0001 ####[facility] [address] [place], [address] Creatinine [Mass/Vol] 1.02 mg/dL Normal 0.55-1.02 [facility] Comment on above: Order Comment: RESUL T(S) PREVIOUSLY REPORTED ON MANUAL REQUISITION DURINGDOWNTIME. Result Comment: The validity of the calculated GFR GFRAA in patients over 70 years has not been determined. Clinical correlation is essential. Performed By: #### L 100.0100, L500.2500, L400.0001 ####[facility] [address] [place], [address] ECRCL 62.65 ml/min Normal [facility] Comment on above: Order Comment: RESUL T(S) PREVIOUSLY REPORTED ON MANUAL REQUISITION DURINGDOWNTIME. Performed By: #### L 100.0100, L500.2500, L400.0001 ####[facility] [address] [place], [address] EST GFR - AA 70 mL/min Normal >[address] [facility] Comment on above: Order Comment: RESUL T(S) PREVIOUSLY REPORTED ON MANUAL REQUISITION DURINGDOWNTIME. Performed By: #### L 100.0100, L500.2500, L400.0001 ####[facility] [address] [place], [address] GAP 7 Normal 5-[address] [facility] Comment on above: Order Comment: RESUL T(S) PREVIOUSLY REPORTED ON MANUAL REQUISITION DURINGDOWNTIME. Performed By: #### L 100.0100, L500.2500, L400.0001 ####[facility] [address] [place], [address] GFR/1.73 sq M.predicted among non-blacks MDRD (S/P/Bld) [Vol rate/Area] 58 mL/min/{1.73_m2} Low >[address] [facility] Comment on above: Order Comment: RESUL T(S) PREVIOUSLY REPORTED ON MANUAL REQUISITION DURINGDOWNTIME. Performed By: #### L 100.0100, L500.2500, L400.0001 ####[facility] [address] [place], [address] Glucose [Mass/Vol] 135 mg/dL High 74-106 [facility] Comment on above: Order Comment: RESUL T(S) PREVIOUSLY REPORTED ON MANUAL REQUISITION DURINGDOWNTIME. Result Comment: Fast ing Glucose result greater than or equal to 126 mg/dL suggests DIABETES MELLITUS per A.D.A. criteria. Performed By: #### L 100.0100, L500.2500, L400.0001 ####[facility] [address] [place], [address] Potassium [Moles/Vol] 3.3 mmol/L Low 3.5-5.1 [facility] Comment on above: Order Comment: RESUL T(S) PREVIOUSLY REPORTED ON MANUAL REQUISITION DURINGDOWNTIME. Performed By: #### L 100.0100, L500.2500, L400.0001 ####[facility] [address] [place], [address] Sodium [Moles/Vol] 137 mmol/L Normal 136-145 [facility] Comment on above: Order Comment: RESUL T(S) PREVIOUSLY REPORTED ON MANUAL REQUISITION DURINGDOWNTIME. Performed By: #### L 100.0100, L500.2500, L400.0001 ####[facility] [address] [place], [address] Urea nitrogen [Mass/Vol] 20 mg/dL High 7-[address] [facility] Comment on above: Order Comment: RESUL T(S) PREVIOUSLY REPORTED ON MANUAL REQUISITION DURINGDOWNTIME. Performed By: #### L 100.0100, L500.2500, L400.0001 ####[facility] [address] [place], [address] CBC W/Diff, Automatedon - 5-202 Basophils/100 WBC (Bld) 0.4 % Normal 0-[address] [facility] Comment on above: Performed By: #### L 100.0100, L500.2500, L400.0001 ####[facility] [address] [place], [address] Eosinophils/100 WBC (Bld) 0.6 % Normal 0-[address] [facility] Comment on above: Performed By: #### L 100.0100, L500.2500, L400.0001 ####[facility] [address] [place], [address] IG% 0.800 Normal 0.0-0.[address] [facility] Comment on above: Result Comment: IG% - Immature Granulocytes (promyelocytes, myelocytes and metamyelocytes) > 1% indicates that a LEFT SHIFT is Present. Performed By: #### L 100.0100, L500.2500, L400.0001 ####[facility] [address] [place], [address] Lymphocytes/100 WBC (Bld) 22.9 % Normal 19-[address] [facility] Comment on above: Performed By: #### L 100.0100, L500.2500, L400.0001 ####[facility] [address] [place], [address] Monocytes/100 WBC (Bld) 6.9 % Normal 0-[address] [facility] Comment on above: Performed By: #### L 100.0100, L500.2500, L400.0001 ####[facility] [address] [place], [address] Neutrophils/100 WBC (Bld) 68.4 % Normal 47-[address] [facility] Comment on above: Performed By: #### L 100.0100, L500.2500, L400.0001 ####[facility] [address] [place], [address] Erythrocyte distribution width (RBC) [Ratio] 13.5 % Normal 11.6-14.[address] [facility] Comment on above: Performed By: #### L 100.0100, L500.2500, L400.0001 ####[facility] [address] [place], [address] Hematocrit (Bld) [Volume fraction] 42.9 % Normal 37-[address] [facility] Comment on above: Performed By: #### L 100.0100, L500.2500, L400.0001 ####[facility] [address] [place], [address] Hemoglobin (Bld) [Mass/Vol] 14.5 g/dL Normal 12.0-15.[address] [facility] Comment on above: Performed By: #### L 100.0100, L500.2500, L400.0001 ####[facility] [address] [place], [address] MCH (RBC) [Entitic mass] 29.7 pg Normal 27.0-32.[address] [facility] Comment on above: Performed By: #### L 100.0100, L500.2500, L400.0001 ####[facility] [address] [place], [address] MCHC (RBC) [Mass/Vol] 33.8 g/dL Normal 32-36 [facility] Comment on above: Performed By: #### L 100.0100, L500.2500, L400.0001 ####[facility] [address] [place], [address] MCV (RBC) [Entitic vol] 87.9 fL Normal 81-[address] [facility] Comment on above: Performed By: #### L 100.0100, L500.2500, L400.0001 ####[facility] [address] [place], [address] Platelet mean volume (Bld) [Entitic vol] 9.9 fL Normal 6.2-12.[address] [facility] Comment on above: Performed By: #### L 100.0100, L500.2500, L400.0001 ####[facility] [address] [place], [address] Platelets (Bld) [#/Vol] 200 10*3/uL Normal 150-[address] [facility] Comment on above: Performed By: #### L 100.0100, L500.2500, L400.0001 ####[facility] [address] [place], [address] RBC (Bld) [#/Vol] 4.88 10*6/uL Normal 4.2-5.4 [facility] Comment on above: Performed By: #### L 100.0100, L500.2500, L400.0001 ####[facility] [address] [place], [address] RDW SD 43.8 fl Normal 35.1-43.[address] [facility] Comment on above: Performed By: #### L 100.0100, L500.2500, L400.0001 ####[facility] [address] [place], [address] WBC (Bld) [#/Vol] 13.4 10*3/uL High 4.4-11.0 [facility] Comment on above: Performed By: #### L 100.0100, L500.2500, L400.0001 ####[facility] [address] [place], [address] Emergency Department Summary on 04-08-2024 Emergency Department Summary [facility] Medical Records Department [address] [place] [address] Emergency Department Summary 04/08/24 MR#: [id number] Acct: [id number] Name: JULIANA MERIDA YANELI Rep #: [id number] : 1960 63 From: Rancho Orozco DO [...] retention she was sent in for evaluation. [facility] Medical History Lives in [facility] Hx of fracture of hip Wears glasses [...] bisacodyl 10 mg rectal suppository 10 mg ND .Q24 PRN PRN constipation 12/18/22 Unknown History [...] Unknown History (more content not included)... Normal [facility] Urinalysis, Completeon 04-08 LEUK ESTERASE Negative Normal Negative [facility] Comment on above: Order Comment: RESUL T(S) PREVIOUSLY REPORTED ON MANUAL REQUISITION DURINGDOWNTIME.CLEAN CATCH Performed By: #### L 100.0100, L500.2500, L400.0001 ####[facility] [address] [place], [place], [id number] Nitrite Ql (U) Negative Normal Negative [facility] Comment on above: Order Comment: RESUL T(S) PREVIOUSLY REPORTED ON MANUAL REQUISITION DURINGDOWNTIME.CLEAN CATCH Performed By: #### L 100.0100, L500.2500, L400.0001 ####[facility] [address] [place], [address] OCCULT BLOOD-UR Negative Normal Negative [facility] Comment on above: Order Comment: RESUL T(S) PREVIOUSLY REPORTED ON MANUAL REQUISITION DURINGDOWNTIME.CLEAN CATCH Performed By: #### L 100.0100, L500.2500, L400.0001 ####[facility] [address] [place], [address] pH UR 7.0 Normal 5.0 - 8.[address] [facility] Comment on above: Order Comment: RESUL T(S) PREVIOUSLY REPORTED ON MANUAL REQUISITION DURINGDOWNTIME.CLEAN CATCH Performed By: #### L 100.0100, L500.2500, L400.0001 ####[facility] [address] [place], [address] PROT DIPSTX Negative Normal Negative [facility] Comment on above: Order Comment: RESUL T(S) PREVIOUSLY REPORTED ON MANUAL REQUISITION DURINGDOWNTIME.CLEAN CATCH Performed By: #### L 100.0100, L500.2500, L400.0001 ####[facility] [address] [place], [address] SP.GR. DIPSTX 1.005 Normal 1.002-1.[address] [facility] Comment on above: Order Comment: RESUL T(S) PREVIOUSLY REPORTED ON MANUAL REQUISITION DURINGDOWNTIME.CLEAN CATCH Performed By: #### L 100.0100, L500.2500, L400.0001 ####[facility] [address] [place], [address] UROBILI Normal Normal Normal [facility] Comment on above: Order Comment: RESUL T(S) PREVIOUSLY REPORTED ON MANUAL REQUISITION DURINGDOWNTIME.CLEAN CATCH Performed By: #### L 100.0100, L500.2500, L400.0001 ####[facility] [address] [place], [address] BILIRUBIN URINE Negative Normal Negative [facility] Comment on above: Order Comment: RESUL T(S) PREVIOUSLY REPORTED ON MANUAL REQUISITION DURINGDOWNTIME.CLEAN CATCH Performed By: #### L 100.0100, L500.2500, L400.0001 ####[facility] [address] [place], [address] Clarity (U) Clear Normal Clear [facility] Comment on above: Order Comment: RESUL T(S) PREVIOUSLY REPORTED ON MANUAL REQUISITION DURINGDOWNTIME.CLEAN CATCH Performed By: #### L 100.0100, L500.2500, L400.0001 ####[facility] [address] [place], [address] Color (U) YELLOW Normal Yellow [facility] Comment on above: Order Comment: RESUL T(S) PREVIOUSLY REPORTED ON MANUAL REQUISITION DURINGDOWNTIME.CLEAN CATCH Performed By: #### L 100.0100, L500.2500, L400.0001 ####[facility] [address] [place], [address] GLUCOSE, UR Negative Normal Normal [facility] Comment on above: Order Comment: RESUL T(S) PREVIOUSLY REPORTED ON MANUAL REQUISITION DURINGDOWNTIME.CLEAN CATCH Performed By: #### L 100.0100, L500.2500, L400.0001 ####[facility] [address] [place], [address] KETONE UR Negative Normal Negative [facility] Comment on above: Order Comment: RESUL T(S) PREVIOUSLY REPORTED ON MANUAL REQUISITION DURINGDOWNTIME.CLEAN CATCH Performed By: #### L 100.0100, L500.2500, L400.0001 ####[facility] [address] [place], [address] BACTERIA 0 SEEN Normal None Seen [facility] Comment on above: Order Comment: RESUL T(S) PREVIOUSLY REPORTED ON MANUAL REQUISITION DURINGDOWNTIME.CLEAN CATCH Performed By: #### L 100.0100, L500.2500, L400.0001 ####[facility] [address] [place], [address] EPI,SQUAMOUS 0 SEEN Normal 5-[address] [facility] Comment on above: Order Comment: RESUL T(S) PREVIOUSLY REPORTED ON MANUAL REQUISITION DURINGDOWNTIME.CLEAN CATCH Performed By: #### L 100.0100, L500.2500, L400.0001 ####[facility] [address] [place], [address] Mucus Ql (Urine sed) 0 SEEN Normal [facility] Comment on above: Order Comment: RESUL T(S) PREVIOUSLY REPORTED ON MANUAL REQUISITION DURINGDOWNTIME.CLEAN CATCH Performed By: #### L 100.0100, L500.2500, L400.0001 ####[facility] [address] [place], [address] RBC 0 SEEN Normal 0-[address] [facility] Comment on above: Order Comment: RESUL T(S) PREVIOUSLY REPORTED ON MANUAL REQUISITION DURINGDOWNTIME.CLEAN CATCH Performed By: #### L 100.0100, L500.2500, L400.0001 ####[facility] [address] [place], [address] WBC 0 SEEN Normal 0-[address] [facility] Comment on above: Order Comment: RESUL T(S) PREVIOUSLY REPORTED ON MANUAL REQUISITION DURINGDOWNTIME.CLEAN CATCH Performed By: #### L 100.0100, L500.2500, L400.0001 ####[facility] [address] [place], [address] [facility] 03-23-2024 [facility] Telephone (INbeatlab) -------- JULIANA MERIDA ([id number]) 1960 F Date Time Provider Department 03/23/24 [...] hours as needed for cough. 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 - insulin glargine,hum.rec.anlog (TOUJEO MAX U-300 SOLOSTAR SUBCUTANEOUS) Inject subcutaneously as directed. - yakrabliryv-xcughdkek-zy lanter (TRELEGY ELLIPTA) 200-62.5-25 mcg inhalation powder [...] 20 mg (more content not included)... Normal [facility] CNPN Telephone (INBATHGATE) -------- JULIANA MERIDA ([id number]) 1960 F Date Time Provider Department 03/23/24 [...] intramuscularly as needed. - Blood-Glucose Sensor (FREESTYLE ELIAS 3 SENSOR) vivek - furosemide (LASIX ORAL) Take 50 mg by mouth every morning. Lasix 40 mg; 1 tablet PO taken with Lasix 20 mg; 0.5 tablet (10 mg) PO to equal 50 mg every morning for Edema - guaiFENesin (ROBITUSSIN) 100 mg/5 mL syrup Take 10 mL by mouth every 4 hours as needed for cough. 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 - insulin glargine,hum.rec.anlog (TOUJEO MAX U-300 SOLOSTAR SUBCUTANEOUS) Inject subcutaneously as directed. - gmdtmtwzrds-rqnyxvgpv-uh lanter (TRELEGY ELLIPTA) 200-62.5-25 mcg inhalation powder [...] (FLONASE) 50 mcg/actuation nasal spray Use 1 [place] in each nostril once daily. . - pregabalin (LYRICA) 100 mg capsule Take 1 capsule by mouth twice daily. - magnesium oxide (MAG-OX) 400 mg tablet Take 1 tablet by mouth once daily. - multivitamin tablet Take 1 tab (more content not included)... Normal [facility] Bedside Glucoseon 03-22-2024 FINGERSTICK GLU 158 mg/dL High 74-[address] [facility] Comment on above: Result Comment: PAO MARS OF PATIENT CARE PER NURSING PROTOCOL Performed By: #### L 501.080 ####[facility] [address] [facility] [place], [address] 12 Lead EKGon 03-21-2024 12 Lead EKG [facility] Cardiovascular Services [address] [place] [address] 12 Lead EKG 03/21/241944 MR#: [id number] Acct: [id number] Name: JULIANA MERIDA Rep #: [id number] : 1960 63 From: Kurt Justice MD [...] Borderline ECG Confirmed by KURT JUSTICE MD ([id number]), continuity editor SVETA STILES ([id number]) on 03/23/2024 6:45:07 AM Referred By: AR Confirmed By:KURT JUSTICE MD 03/23/24 0645 Date Kurt Justice MD CC: Dr. Oswaldo Lo MD; Bianca Palomares MD Signed Normal [facility] 12 Lead EKG [facility] Cardiovascular Services [address] [place] [address] 12 Lead EKG 03/21/24 2110 MR#: [id number] Acct: [id number] Name: JULIANA MERIDA Rep #: [id number] : 1960 63 From: Kurt Justice MD [...] Borderline ECG Confirmed by KURT JUSTICE MD ([id number]), continuity editor SVETA STILES ([id number]) on 03/23/2024 6:44:53 AM Referred By: Confirmed By:KURT JUSTICE MD 03/23/24 0644 Date Kurt Justice MD CC: Dr. Oswaldo Lo MD; Bianca Palomares MD Signed Normal [facility] Basic Metabolic Profile (BMP )on 03-21-2024 BUN/CRE 15.2 RATIO Normal 10-[address] [facility] Comment on above: Order Comment: 1 Y Performed By: #### L 500.2500, L100.0100, L501.5425 #### [facility] [address] [place], [address] CA,Total 9.7 mg/dL Normal 8.5-10.[address] [facility] Comment on above: Order Comment: 1 Y Performed By: #### L 500.2500, L100.0100, L501.5425 #### [facility] [address] [place], [address] Chloride [Moles/Vol] 106 mmol/L Normal 98-107 [facility] Comment on above: Order Comment: 1 Y Performed By: #### L 500.2500, L100.0100, L501.5425 #### [facility] [address] [place], [address] CO2 [Moles/Vol] 25.0 mmol/L Normal 21.0-32.[address] [facility] Comment on above: Order Comment: 1 Y Performed By: #### L 500.2500, L100.0100, L501.5425 #### [facility] [address] [place], [address] Creatinine [Mass/Vol] 0.86 mg/dL Normal 0.55-1.02 [facility] Comment on above: Order Comment: 1 Y Result Comment: The validity of the calculated GFR GFRAA in patients over 70 years has not been determined. Clinical correlation is essential. Performed By: #### L 500.2500, L100.0100, L501.5425 #### [facility] [address] [place], [address] ECRCL 74.91 ml/min Normal [facility] Comment on above: Order Comment: 1 Y Performed By: #### L 500.2500, L100.0100, L501.5425 #### [facility] [address] [place], [address] EST GFR - AA 86 mL/min Normal >[address] [facility] Comment on above: Order Comment: 1 Y Result Comment: Afri can Malian GFR Calc Performed By: #### L 500.2500, L100.0100, L501.5425 #### [facility] [address] [place], [address] GAP 7 Normal 5-[address] [facility] Comment on above: Order Comment: 1 Y Performed By: #### L 500.2500, L100.0100, L501.5425 #### [facility] [address] [place], [address] GFR/1.73 sq M.predicted among non-blacks MDRD (S/P/Bld) [Vol rate/Area] 71 mL/min/{1.73_m2} Normal >[address] [facility] Comment on above: Order Comment: 1 Y Result Comment: Non- GFR Calc Performed By: #### L 500.2500, L100.0100, L501.5425 #### [facility] [address] [place], [address] Glucose [Mass/Vol] 227 mg/dL High 74-106 [facility] Comment on above: Order Comment: 1 Y Result Comment: Gluc ose result greater than or equal to 200 mg/dL suggests DIABETES MELLITUS per A.D.A. criteria. Performed By: #### L 500.2500, L100.0100, L501.5425 #### [facility] [address] [place], [address] Potassium [Moles/Vol] 3.7 mmol/L Normal 3.5-5.1 [facility] Comment on above: Order Comment: 1 Y Performed By: #### L 500.2500, L100.0100, L501.5425 #### [facility] [address] [place], [address] Sodium [Moles/Vol] 138 mmol/L Normal 136-145 [facility] Comment on above: Order Comment: 1 Y Performed By: #### L 500.2500, L100.0100, L501.5425 #### [facility] [address] [place], [address] Urea nitrogen [Mass/Vol] 13 mg/dL Normal 7-[address] [facility] Comment on above: Order Comment: 1 Y Performed By: #### L 500.2500, L100.0100, L501.5425 #### [facility] [address] [place], [address] CBC W/Diff, Automatedon 09-0 7-2024 Absolute Lymph 3.14 X10 3/uL Normal 0.83-4.[address] [facility] Comment on above: Performed By: #### L 500.2500, L100.0100, L501.5425 #### [facility] [address] [place], [address] Absolute Neut 8.1 X10 3/uL High 2.0-7.[address] [facility] Comment on above: Performed By: #### L 500.2500, L100.0100, L501.5425 #### [facility] [address] [place], [address] Basophils/100 WBC (Bld) 0.6 % Normal 0-[address] [facility] Comment on above: Performed By: #### L 500.2500, L100.0100, L501.5425 #### [facility] [address] [place], [address] Eosinophils/100 WBC (Bld) 0.7 % Normal 0-[address] [facility] Comment on above: Performed By: #### L 500.2500, L100.0100, L501.5425 #### [facility] [address] [place], [address] Erythrocyte distribution width (RBC) [Ratio] 13.8 % Normal 11.6-14.[address] [facility] Comment on above: Performed By: #### L 500.2500, L100.0100, L501.5425 #### [facility] [address] [place], [address] Hematocrit (Bld) [Volume fraction] 46.8 % Normal 37-[address] [facility] Comment on above: Performed By: #### L 500.2500, L100.0100, L501.5425 #### [facility] [address] [place], [address] Hemoglobin (Bld) [Mass/Vol] 15.5 g/dL High 12.0-15.[address] [facility] Comment on above: Performed By: #### L 500.2500, L100.0100, L501.5425 #### [facility] [address] [place], [address] IG% 0.700 Normal 0.0-0.[address] [facility] Comment on above: Result Comment: IG% - Immature Granulocytes (promyelocytes, myelocytes and metamyelocytes) > 1% indicates that a LEFT SHIFT is Present. Performed By: #### L 500.2500, L100.0100, L501.5425 #### [facility] [address] [place], [address] Lymphocytes/100 WBC (Bld) 25.7 % Normal 19-[address] [facility] Comment on above: Performed By: #### L 500.2500, L100.0100, L501.5425 #### [facility] [address] [place], [address] MCH (RBC) [Entitic mass] 29.2 pg Normal 27.0-32.[address] [facility] Comment on above: Performed By: #### L 500.2500, L100.0100, L501.5425 #### [facility] [address] [place], [address] MCHC (RBC) [Mass/Vol] 33.1 g/dL Normal 32-36 [facility] Comment on above: Performed By: #### L 500.2500, L100.0100, L501.5425 #### [facility] [address] [place], [address] MCV (RBC) [Entitic vol] 88.1 fL Normal 81-[address] [facility] Comment on above: Performed By: #### L 500.2500, L100.0100, L501.5425 #### [facility] [address] [place], [address] Monocytes/100 WBC (Bld) 6.4 % Normal 0-[address] [facility] Comment on above: Performed By: #### L 500.2500, L100.0100, L501.5425 #### [facility] [address] [place], [address] Neutrophils/100 WBC (Bld) 65.9 % Normal 47-[address] [facility] Comment on above: Performed By: #### L 500.2500, L100.0100, L501.5425 #### [facility] [address] [place], [address] Nucleated RBC (Bld) [#/Vol] 0 10*3/uL Normal 0-[address] [facility] Comment on above: Performed By: #### L 500.2500, L100.0100, L501.5425 #### [facility] [address] [place], [address] Platelet mean volume (Bld) [Entitic vol] 10.7 fL Normal 6.2-12.[address] [facility] Comment on above: Performed By: #### L 500.2500, L100.0100, L501.5425 #### [facility] [address] [place], [address] Platelets (Bld) [#/Vol] 218 10*3/uL Normal 150-[address] [facility] Comment on above: Performed By: #### L 500.2500, L100.0100, L501.5425 #### [facility] [address] [place], [address] RBC (Bld) [#/Vol] 5.31 10*6/uL Normal 4.2-5.4 [facility] Comment on above: Performed By: #### L 500.2500, L100.0100, L501.5425 #### [facility] [address] [place], [address] RDW SD 44.6 fl High 35.1-43.[address] [facility] Comment on above: Performed By: #### L 500.2500, L100.0100, L501.5425 #### [facility] [address] [place], [address] WBC (Bld) [#/Vol] 12.2 10*3/uL High 4.4-11.0 [facility] Comment on above: Performed By: #### L 500.2500, L100.0100, L501.5425 #### [facility] [address] [place], [address] Chest 1 View (Portable)on Chest 1 View (Portable) [facility] Imaging Services [address] [place] [address] Chest 1 View (Portable) MR#: [id number] Acct: [id number] Name: JULIANA MERIDA YANELI Rep #: [id number] : 1960 F 63 From: Rob salinas MD PCP: Bianca Palomares MD Status: REG ER Study: Chest 1 View (Portable) Date of Exam: 03/21/24 Exam# [id number] Ordering Dr: Oswaldo Lo MD [id number] INDICATION: chest pain EXAMINATION/TECHNIQUE: X-RAY - XR Chest 1 View COMPARISON: 12/19/2023. FINDINGS: The lungs are clear. Tortuous and calcified thoracic aorta. The heart is not enlarged. No pleural effusion or pneumothorax. No acute osseous abnormalities. RAD/Chest 1 View (Portable) IMPRESSION: No acute radiographic abnormalities. Electronically Signed: Rob Booker MD at 20:25 EDT Reading Location ID and State: [facility] / [place] Tel , Service support , CC: Dr. Oswalod Lo MD; Bianca Palomares MD Mixer Blender: Signed Normal [facility] Emergency Department Summary on 03-21-2024 Emergency Department Summary [facility] Medical Records Department [address] [place] [id number] Emergency Department Summary 03/21/24 MR#: [id number] Acct: [id number] Name: JULIANA MERIDA Rep #: [id number] : 1960 63 From: Oswaldo Lo MD [...] few days. No exacerbating or alleviating factors. [facility] Medical History Lives in [facility] Hx of fracture of hip Wears glasses [...] bisacodyl 10 mg rectal suppository 10 mg ND .Q24 PRN PRN constipation 12/18/22 Unknown History [...] 12/18/22 Un (more content not included)... Normal [facility] L501.4020on 03-21-2024 TROPONIN-I HS 7 pg/mL Normal 3.0-54.[address] [facility] Comment on above: Result Comment: Plea se Note: New Test Units and Gender Specific Reference Ranges. For more information see Policy Stat Procedure [place] High Sensitivity Troponin (TNIH) and attachments. Performed By: #### L 501.4020 #### [facility] [address] [place], [address] L501.5425on 03-21-2024 TROPONIN-I HS 6 pg/mL Normal 3.0-54.[address] [facility] Comment on above: Order Comment: 1 Y Result Comment: Plea se Note: New Test Units and Gender Specific Reference Ranges. For more information see Policy Stat Procedure [place] High Sensitivity Troponin (TNIH) and attachments. Performed By: #### L 500.2500, L100.0100, L501.5425 #### [facility] [address] [place], [address] Urinalysis, Completeon 03-21 BACTERIA 1+ /hpf Normal None Seen [facility] Comment on above: Order Comment: LEROY TER SPECIMEN Performed By: #### L 400.0001 #### [facility] [address] [place], [address] EPI,SQUAMOUS 5-10 SEEN Normal 5-[address] [facility] Comment on above: Order Comment: LEROY TER SPECIMEN Performed By: #### L 400.0001 #### [facility] [address] [place], [address] WBC 5-10 SEEN Normal 0-[address] [facility] Comment on above: Order Comment: LEROY TER SPECIMEN Performed By: #### L 400.0001 #### [facility] [address] [place], [address] BILIRUBIN URINE Negative Normal Negative [facility] Comment on above: Order Comment: LEROY TER SPECIMEN Performed By: #### L 400.0001 #### [facility] [address] [place], [address] Clarity (U) Clear Normal Clear [facility] Comment on above: Order Comment: LEROY TER SPECIMEN Performed By: #### L 400.0001 #### [facility] [address] [place], [address] Color (U) Yellow Normal Yellow [facility] Comment on above: Order Comment: LEROY TER SPECIMEN Performed By: #### L 400.0001 #### [facility] [address] [place], [address] GLUCOSE, UR 1000 mg/dl Abnormal Normal [facility] Comment on above: Order Comment: LEROY TER SPECIMEN Performed By: #### L 400.0001 #### [facility] [address] [place], [address] KETONE UR Negative Normal Negative [facility] Comment on above: Order Comment: LEROY TER SPECIMEN Performed By: #### L 400.0001 #### [facility] [address] [place], [address] LEUK ESTERASE 25 /ul Abnormal Negative [facility] Comment on above: Order Comment: LEROY TER SPECIMEN Performed By: #### L 400.0001 #### [facility] [address] [place], [address] Nitrite Ql (U) Negative Normal Negative [facility] Comment on above: Order Comment: LEROY TER SPECIMEN Performed By: #### L 400.0001 #### [facility] [address] [place], [address] OCCULT BLOOD-UR Negative Normal Negative [facility] Comment on above: Order Comment: LEROY TER SPECIMEN Performed By: #### L 400.0001 #### [facility] [address] [place], [address] pH UR 7.0 Normal 5.0 - 8.[address] [facility] Comment on above: Order Comment: LEROY TER SPECIMEN Performed By: #### L 400.0001 #### [facility] [address] [place], [address] PROT DIPSTX 15 mg/dl Abnormal Negative [facility] Comment on above: Order Comment: LEROY TER SPECIMEN Performed By: #### L 400.0001 #### [facility] [address] [place], [address] SP.GR. DIPSTX 1.010 Normal 1.002-1.[address] [facility] Comment on above: Order Comment: LEROY TER SPECIMEN Performed By: #### L 400.0001 #### [facility] [address] [place], [address] UROBILI Normal Normal Normal [facility] Comment on above: Order Comment: LEROY TER SPECIMEN Performed By: #### L 400.0001 #### [facility] [address] [place], [address] Mucus Ql (Urine sed) 0 SEEN Normal [facility] Comment on above: Order Comment: LEROY TER SPECIMEN Performed By: #### L 400.0001 #### [facility] [address] [place], [address] RBC 0 SEEN Normal 0-[address] [facility] Comment on above: Order Comment: LEROY TER SPECIMEN Performed By: #### L 400.0001 #### [facility] [address] [place], [address] Bedside Glucoseon 02-07-2024 FINGERSTICK GLU 251 mg/dL High 74-[address] [facility] Comment on above: Result Comment: PAO MARS OF PATIENT CARE PER NURSING PROTOCOL Performed By: #### L 501.080 ####[facility] [address] [place], [address] MR/POSTOP.ANEon 02-07-2024 MR/POSTOP.ANE [facility] Medical Records Department [address] [place] [address] Anesthesia Postop Eval I 02/07/24 1026 MR#: [id number] Acct: [id number] Name: MAGNOLIAJULIANA Rep #: [id number] : 1960 63 From: Eric Serna PCP: Bianca Palomares MD Status:[facility] Y Race: C Location: [place] [address] Anesthesia: Postop Eval I Current Vital Signs [...] Eric Nolasco Signature: Date CC: Signed Normal [facility] MR/[id number] 02-07-2024 MR/POSTOPAN2 [facility] Medical Records Department [address] [place] [address] Anesthesia Postop Eval II 02/07/24 1300 MR#: [id number] Acct: [id number] Name: MAGNOLIAJULIANA GROVES Rep #: [id number] : 1960 63 From: Eric Monte MD PCP: Bianca Palomares MD Status:[facility] Y Race: C Location: [facility] Anesthesia Postop Eval I Sum Postop Eval Completion status Anesthesia document: Postop Eval 1 completed: Yes Anesthesia Postop Eval I Summary Anesthesia Postop Eval I Summary: Anesthesia Postop Eval I: Assessment Summary Airway patent Yes 02/07/24 10:27 COOKER CHIP.MDOT Spontaneous unlabored Yes 02/07/24 10:27 COOKER CHIP.MDOT respirations Mental status Awake,Calm 02/07/24 10:27 COOKER CHIP.MDOT nausea No 02/07/24 10:27 COOKER CHIP.MDOT Vomiting No 02/07/24 10:27 COOKER CHIP.MDOT Anesthesia Postop Eval I: Fluid Summary Crystalloid volume administer 800 02/07/24 10:27 COOKER CHIP.MDOT (ml) Colloids volume administered ( ml) Blood Product volume administered (ml) Total IV fluid infused 800 02/07/24 10:27 COOKER CHIP.OT Anesthesia Postop Eval I: Summary Notes Anesthesia Complication No 02/07/24 10:27 COOKER CHIP.MDOT Anesthesia Complication Comment: Post-operative progress note Anesthesia: Postop Eval II Evaluation Mental status: Awake and Calm Pain Level: 1 nausea: No Vomiting: No Complications Anesthesia Complication: No 02/07/24 1300 Date Eric Monte MD Cosigner Signature: Date CC: Signed Normal [facility] Absolute lymphocyte countOrd ered By: Dino Pena on 11-24-2023 Lymphocytes Auto (Unsp spec) [#/Vol] 2.37 10*3/uL 0.83-4.[address] [facility] Automated lymphocyte count a s percentage of total leukocytesOrdered By: Dino Pena on 11-24-2023 Lymphocytes/100 WBC Auto (Unsp spec) 20.5 % 19-[address] [facility] Basophil percentageOrdered B y: Dino Pena on 11-24-2023 Basophil percentage 0 SEEN /hpf 0-5 [facility] Basophils/100 WBC (Bld) 0.3 % 0-[address] [facility] Chloride [Moles/Vol] 104 mmol/L 98-107 [facility] Eosinophils/100 WBC (Bld) 0.6 % 0-[address] [facility] Glucose [Mass/Vol] 141 mg/dL 74-106 [facility] Comment on above: Fasting Glucose resu lt greater than or equal to 126 mg/dL suggests DIABETES MELLITUS per A.D.A. criteria. Hemoglobin (Bld) [Mass/Vol] 14.4 g/dL 12.0-15.[address] [facility] Monocytes/100 WBC (Bld) 8.4 % 0-[address] [facility] Neutrophils (Bld) [#/Vol] 8.0 10*3/uL 2.0-7.[address] [facility] Neutrophils/100 WBC (Bld) 69.2 % 47-[address] [facility] Potassium [Moles/Vol] 3.9 mmol/L 3.5-5.1 [facility] Sodium [Moles/Vol] 142 mmol/L 136-145 [facility] WBC (Bld) [#/Vol] 11.6 10*3/uL 4.4-11.0 [facility] Bilirubin Test strip Ql (U)O rdered By: Dino Pena on 11-24-2023 Bilirubin Ql (U) Negative Negative [facility] Determination of erythrocyte mean corpuscular volume (MCV)Ordered By: Dino Pena on 11-24-2023 MCV (RBC) [Entitic vol] 89.4 fL 81-[address] [facility] Erythrocyte distribution wid th ratioOrdered By: Dino Pena on 11-24-2023 Erythrocyte distribution width (RBC) [Ratio] 15.5 % 11.6-14.[address] [facility] Erythrocyte distribution wid th standard deviationOrdered By: Dino Pena on 11-24-2023 Erythrocyte distribution width (RBC) [Entitic vol] 50.6 fL 35.1-43.[address] [facility] Hematocrit Auto (Bld) [Volum e fraction]Ordered By: Dino Pena on 11-24-2023 Hematocrit (Bld) [Volume fraction] 43.8 % 37-[address] [facility] Immature granulocytes/100 WB C Auto (Bld)Ordered By: Dino Pena on 11-24-2023 Immature granulocytes/100 WBC (Bld) 1.000 % 0.0-0.[address] [facility] Comment on above: IG% - Immature Granu locytes (promyelocytes, myelocytes and metamyelocytes) > 1% indicates that a LEFT SHIFT is Present. Ketones Test strip Ql (U)Ord ered By: Dino Pena on 11-24-2023 Ketones Ql (U) Negative Negative [facility] - Chemistry and C hemistry - challengeOrdered By: Dino Pena on 11-24-2023 CO2 [Moles/Vol] 33.0 mmol/L 21.0-32.[address] [facility] Urea nitrogen/Creatinine [Mass ratio] 17.9 mg/mg 10-[address] [facility] - Hematology and Cell countsOrdered By: Dino Pena on 11-24-2023 MCH (RBC) [Entitic mass] 29.4 pg 27.0-32.[address] [facility] MCHC (RBC) [Mass/Vol] 32.9 g/dL 32-36 [facility] Nucleated RBC/100 WBC (Bld) [Ratio] 0 % 0-[address] [facility] Platelet mean volume (Bld) [Entitic vol] 9.9 fL 6.2-12.[address] [facility] Platelets (Bld) [#/Vol] 223 10*3/uL 150-[address] [facility] Mucus LM Ql (Urine sed)Order ed By: Dino Pena on 11-24-2023 Mucus Ql (Urine sed) 0 SEEN /hpf [facility] Nitrite Test strip Ql (U)Ord ered By: Dino Pena on 11-24-2023 Nitrite Ql (U) Negative Negative [facility] No Panel InformationOrdered By: Dino Pena on 11-24-2023 Urine RBC 0 SEEN /hpf 0-[address] [facility] Estimated Creatinine Clearance Calc 77.96 ml/min [facility] Estimated GFR (MDRD) Amer 89 mL/min >[address] [facility] Comment on above: GFR Calc Estimated GFR (MDRD) Non-Af Amer 73 mL/min >[address] [facility] Comment on above: Non- GFR Calc Troponin I High Sensitivity 5 pg/mL 3.0-54.[address] [facility] Comment on above: Please Note: New Ines t Units and Gender Specific Reference Ranges. For more information see Policy Stat Procedure [place] High Sensitivity Troponin (TNIH) and attachments. Protein Test strip Ql (U)Ord ered By: Dino Pena on 11-24-2023 Protein Ql (U) Negative Negative [facility] RBC Auto (Bld) [#/Vol]Ordere d By: Dino Pena on 11-24-2023 RBC (Bld) [#/Vol] 4.90 10*6/uL 4.2-5.4 [facility] Serum or plasma calcium fabi urement (mass/volume)Ordered By: Dino Pena on 11-24-2023 Calcium [Mass/Vol] 9.0 mg/dL 8.5-10.1 [facility] Serum or plasma creatinine m easurement (mass/volume)Ordered By: Dino Pena on 11-24-2023 Creatinine [Mass/Vol] 0.84 mg/dL 0.55-1.02 [facility] Comment on above: The validity of the calculated GFR & GFRAA in patients over 70 years has not been determined. Clinical correlation is essential. Serum or plasma urea nitroge n measurement (mass/volume)Ordered By: Dino Pena on 11-24-2023 Urea nitrogen [Mass/Vol] 15 mg/dL 7-[address] [facility] Squamous epithelial cells de tection in urine sediment by light microscopyOrdered By: Dino Pena on 11-24-2023 Epithelial cells.squamous LM Ql (Urine sed) 0-5 SEEN /hpf 5-[address] [facility] Thin prep Papanicolaou smear with manual screeningOrdered By: Dino Pena on 11-24-2023 Thin prep Papanicolaou smear with manual screening 5 5-[address] [facility] Urine blood detectionOrdered By: Dino Pena on 11-24-2023 RBC Ql (U) Negative Negative [facility] Urine clarityOrdered By: Migdalia Pena on 11-24-2023 Clarity (U) Clear Clear [facility] Urine color determinationOrd ered By: Dino Pena on 11-24-2023 Color (U) Yellow Yellow [facility] Urine glucose detectionOrder ed By: Dino Pena on 11-24-2023 Glucose Ql (U) Normal mg/dl Normal [facility] Urine leukocyte esterase det ection by dipstickOrdered By: Dino Pena on 11-24-2023 Leukocyte esterase Test strip Ql (U) Negative Negative [facility] Urine pHOrdered By: Dino Pena on 11-24-2023 pH (U) 7.0 [pH] 5.0 - 8.[address] [facility] Urine sediment bacteria coun t by microscopy (number/high power field)Ordered By: Dino Pena on 11-24-2023 Bacteria LM.HPF (Urine sed) [#/Area] 0 /[HPF] None Seen [facility] Urine specific gravity measu rementOrdered By: Dino Pena on 11-24-2023 Specific gravity (U) [Rel density] 1.010 1.002-1.[address] [facility] Urine urobilinogen measureme ntOrdered By: Dino Pena on 11-24-2023 Urobilinogen Ql (U) Normal mg/dl Normal [facility] CT ABDOMEN/PELVIS W/O CONTRA STon 10-05-2023 [...] 10/05/2023 8:25:51 PM Ordering Provider: MAULIK العلي [facility] ([place]) Absolute lymphocyte countOrd ered By: Chilango Laughlin on 09-26-2023 Lymphocytes Auto (Unsp spec) [#/Vol] 2.05 10*3/uL 0.83-4.[address] [facility] Anaerobic cultureOrdered By: Chilango Laughlin on 09-26-2023 Bacteria identified Anaer cx Nom (Unsp spec) No anaerobic bacteria isolated. [facility] Automated lymphocyte count a s percentage of total leukocytesOrdered By: Chilango Laughlin on 09-26-2023 Lymphocytes/100 WBC Auto (Unsp spec) 20.9 % 19-[address] [facility] Bacteria identified Cx Nom ( Wound)Ordered By: Chilango Laughlin on 09-26-2023 Wound Culture Meth. resistant Stap h. aureus [facility] Basophil percentageOrdered B y: Chilango Laughlin on 09-26-2023 Basophils/100 WBC (Bld) 0.4 % 0-[address] [facility] Bilirubin [Mass/Vol] 0.40 mg/dL 0.20-1.00 [facility] Comment on above: For patients on eltr ombopag therapy, use of Dimension [place] TBIL is not recommended. Chloride [Moles/Vol] 106 mmol/L 98-107 [facility] Eosinophils/100 WBC (Bld) 1.3 % 0-[address] [facility] Glucose [Mass/Vol] 210 mg/dL 74-106 [facility] Comment on above: Glucose result great er than or equal to 200 mg/dLsuggests DIABETES MELLITUS per A.D.A. criteria. Hemoglobin (Bld) [Mass/Vol] 14.5 g/dL 12.0-15.[address] [facility] Monocytes/100 WBC (Bld) 7.7 % 0-[address] [facility] Neutrophils (Bld) [#/Vol] 6.8 10*3/uL 2.0-7.[address] [facility] Neutrophils/100 WBC (Bld) 69.1 % 47-[address] [facility] Potassium [Moles/Vol] 4.5 mmol/L 3.5-5.1 [facility] Comment on above: Moderate Hemolysis, Result may be falsely increased. Protein [Mass/Vol] 6.9 g/dL 6.4-8.2 [facility] Sodium [Moles/Vol] 139 mmol/L 136-145 [facility] WBC (Bld) [#/Vol] 9.8 10*3/uL 4.4-11.0 [facility] Determination of erythrocyte mean corpuscular volume (MCV)Ordered By: Chilango Laughlin on 09-26-2023 MCV (RBC) [Entitic vol] 87.5 fL 81-[address] [facility] Erythrocyte distribution wid th ratioOrdered By: Chilango Laughlin on 09-26-2023 Erythrocyte distribution width (RBC) [Ratio] 13.4 % 11.6-14.[address] [facility] Erythrocyte distribution wid th standard deviationOrdered By: Chilango Laughlin on 09-26-2023 Erythrocyte distribution width (RBC) [Entitic vol] 42.7 fL 35.1-43.[address] [facility] Erythrocyte sedimentation ra teOrdered By: Chilango Laughlin on 09-26-2023 ESR (Bld) [Velocity] 15 mm/h 0-30 [facility] Gram stain for investigation of transfusion reactionOrdered By: Chilango Laughlin on 09-26-2023 Microscopic observation Gram stain Nom (Unsp spec) [facility] Hematocrit Auto (Bld) [Volum e fraction]Ordered By: Chilango Laughlin on 03-14-2024 Hematocrit (Bld) [Volume fraction] 44.9 % 37-[address] [facility] Immature granulocytes/100 WB C Auto (Bld)Ordered By: Chilango Laughlin on 09-26-2023 Immature granulocytes/100 WBC (Bld) 0.600 % 0.0-0.[address] [facility] Comment on above: IG% - Immature Granu locytes (promyelocytes, myelocytes and metamyelocytes) > 1% indicates that a LEFT SHIFT is Present. Laboratory - Chemistry and C hemistry - challengeOrdered By: Chilango Laughlin on 09-26-2023 Albumin/Globulin [Mass ratio] 1.0 {ratio} 0.9-2.4 [facility] ALP [Catalytic activity/Vol] 60 U/L 45-[address] [facility] ALT [Catalytic activity/Vol] 62 U/L 13-[address] [facility] CO2 [Moles/Vol] 28.0 mmol/L 21.0-32.[address] [facility] Globulin (S) [Mass/Vol] 3.5 g/dL 2.2-4.[address] [facility] Urea nitrogen/Creatinine [Mass ratio] 17.4 mg/mg 10-[address] [facility] Laboratory - Hematology and Cell countsOrdered By: Chilango Laughlin on 09-26-2023 MCH (RBC) [Entitic mass] 28.3 pg 27.0-32.[address] [facility] MCHC (RBC) [Mass/Vol] 32.3 g/dL 32-36 [facility] Nucleated RBC/100 WBC (Bld) [Ratio] 0 % 0-[address] [facility] Platelet mean volume (Bld) [Entitic vol] 10.6 fL 6.2-12.[address] [facility] Platelets (Bld) [#/Vol] 222 10*3/uL 150-[address] [facility] No Panel InformationOrdered By: Chilango Laughlin on 09-26-2023 C-Reactive Protein Extended Range 5.51 mg/L 0.0-3.[address] [facility] Comment on above: C-Reactive Protein ( CRP) provides useful information for thediagnosis, therapy and monitoring of inflammatory processesand associated diseases. For the evaluation of Relative Riskfor Cardiovascular Disease, a High Sensitivity CRP (HSCRP)should be ordered. Estimated GFR (MDRD) Amer 93 mL/min >[address] [facility] Comment on above: GFR Calc Estimated GFR (MDRD) Non-Af Amer 77 mL/min >[address] [facility] Comment on above: Non- GFR Calc RBC Auto (Bld) [#/Vol]Ordere d By: Chilango Lauglhin on 09-26-2023 RBC (Bld) [#/Vol] 5.13 10*6/uL 4.2-5.4 [facility] Serum or plasma calcium fabi urement (mass/volume)Ordered By: Chilango Laughlin on 09-26-2023 Calcium [Mass/Vol] 9.4 mg/dL 8.5-10.1 [facility] Serum or plasma creatinine m easurement (mass/volume)Ordered By: Chilango Laughlin on 09-26-2023 Creatinine [Mass/Vol] 0.80 mg/dL 0.55-1.02 [facility] Comment on above: The validity of the calculated GFR & GFRAA in patients over 70 years has not been determined. Clinical correlation is essential. Serum or plasma urea nitroge n measurement (mass/volume)Ordered By: Chilango Laughlin on 09-26-2023 Urea nitrogen [Mass/Vol] 14 mg/dL 7-[address] [facility] Thin prep Papanicolaou smear with manual screeningOrdered By: Chilango Laughlin on 09-26-2023 Thin prep Papanicolaou smear with manual screening 3.4 g/dL 3.2-5.[address] [facility] Thin prep Papanicolaou smear with manual screening 42 U/L [facility] Comment on above: Moderate Hemolysis, Result may be falsely increased. Thin prep Papanicolaou smear with manual screening 5 5-[address] [facility] CNPLazara 09-10-2023 [place] Telephone ([employer]) -------- MAGNOLIA,JULIANA J ([id number]) 1960 F Date Time Provider Department 09/10/23 [...] hours as needed for cough. 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 - insulin glargine,hum.rec.anlog (TOUJEO MAX U-300 SOLOSTAR SUBCUTANEOUS) Inject subcutaneously as directed. - edkdpmyrnfj-poevitrai-jk lanter (TRELEGY ELLIPTA) 200-62.5-25 mcg inhalation powder [...] 1 S (more content not included)... Normal [facility] Anaerobic cultureOrdered By: Chilango Laughlin on 08-22-2023 Bacteria identified Anaer cx Nom (Unsp spec) No anaerobic bacteria isolated. [facility] Bacteria identified Anaer cx Nom (Unsp spec) No anaerobic bacteria isolated. [facility] Bacteria identified Cx Nom ( Wound)Ordered By: Chilango Laughlin on 08-22-2023 Wound Culture Meth. resistant Stap h. aureus [facility] Wound Culture Meth. resistant Stap h. aureus [facility] Gram stain for investigation of transfusion reactionOrdered By: Chilango Laughlin on 08-22-2023 Microscopic observation Gram stain Nom (Unsp spec) [facility] Microscopic observation Gram stain Nom (Unsp spec) [facility] Anaerobic cultureOrdered By: Chilango Laughlin on 07-18-2023 Bacteria identified Anaer cx Nom (Unsp spec) No anaerobic bacteria isolated. [facility] Bacteria identified Anaer cx Nom (Unsp spec) No anaerobic bacteria isolated. [facility] Bacteria identified Cx Nom ( Wound)Ordered By: Chilango Laughlin on 07-18-2023 Wound Culture Meth. resistant Stap h. aureus [facility] Wound Culture Meth. resistant Stap h. aureus [facility] Gram stain for investigation of transfusion reactionOrdered By: Chilango Laughlin on 07-18-2023 Microscopic observation Gram stain Nom (Unsp spec) [facility] Microscopic observation Gram stain Nom (Unsp spec) [facility] Anaerobic cultureOrdered By: Dr. Laughlin on 11-25-2022 Bacteria identified Anaer cx Nom (Unsp spec) No anaerobic bacteria isolated. [facility] Bacteria identified Cx Nom ( Wound)Ordered By: Dr. Laughlin on 11-24-2022 Wound Culture Klebsiella pneumonia e sp pneum [facility] Wound Culture Proteus mirabilis [facility] Gram stain for investigation of transfusion reactionOrdered By: Dr. Laughlin on 11-23-2022 Microscopic observation Gram stain Nom (Unsp spec) [facility] Anaerobic cultureOrdered By: Chilango Laughlin on 11-22-2022 Bacteria identified Anaer cx Nom (Unsp spec) No anaerobic bacteria isolated. [facility] Bacteria identified Cx Nom ( Wound)Ordered By: Chilango Laughlin on 11-22-2022 Wound Culture Klebsiella pneumonia e sp pneum [facility] Wound Culture Proteus mirabilis [facility] Gram stain for investigation of transfusion reactionOrdered By: Chilango Laughlin on 11-22-2022 Microscopic observation Gram stain Nom (Unsp spec) [facility] XR ANKLE AND FOOT 6 VIEWS [facility] 10-17-2022 XR ANKLE AND FOOT 6 [...] Date: 10/17/2022 5:04:00 AM Ordering Provider: [place] [facility]NEE THREE VIEWS RIGHTon 10-17-2022 XR [...] 10/17/2022 5:02:30 AM Ordering Provider: MAKENNA HYATT [facility]) LABORATORYOrdered By: Cici Mcnally on 04-28-2022 Basophil, [...] 247 mg/dL Abnormal 74 - 99 mg/dL [facility] LABORATORYOrdered By: Savanna Allen on 12-01-2021 [...] Routine cultures are held for 5 days. [facility] LABORATORYOrdered By: Jeremy Waters on 11-30-2021 [...] [Mass/Vol] 3.6 g/dL 3.4 - 5.0 g/dL [facility] ALP [Catalytic activity/Vol] 80 U/L 46 - 116 U/L [facility] ALT With P-5'-P [Catalytic activity/Vol] 51 U/L 12 - 78 U/L [facility] Anion gap [Moles/Vol] 9 mmol/L 8 - 16 mmol/L [facility] AST With P-5'-P [Catalytic activity/Vol] 31 U/L 15 - 46 U/L [facility] Bilirubin [Mass/Vol] 0.2 mg/dL 0.2 - 1 .0 mg/dL [facility] Calcium [Mass/Vol] 8.8 mg/dL 8.5 - 10. 1 mg/dL [facility] Chloride [Moles/Vol] 102 mmol/L 98 - 10 7 mmol/L [facility] CO2 [Moles/Vol] 25 mmol/L 21 - 32 mmol/L [facility] Creatinine [Mass/Vol] 0.67 mg/dL 0.51 - 0.95 mg/dL [facility] Estimated Glomerular Filtration Rate 100 mL/min/1.73m >=60 mL/min/1.7 [facility]m [facility] Glucose [Mass/Vol] 264 mg/dL High 70 - 99 mg/dL [facility] Potassium [Moles/Vol] 4.2 mmol/L 3.5 - 5.1 mmol/L [facility] Protein [Mass/Vol] 7.0 g/dL 6.4 - 8.2 g/dL [facility] Sodium [Moles/Vol] 136 mmol/L 136 - 145 mmol/L [facility] Urea nitrogen [Mass/Vol] 10 mg/dL 7 - 18 mg/dL [facility] BD DXA - AXIAL SKELETONon BD DXA - AXIAL SKELETON * * *Final Report* * * DATE OF EXAM: Aug 07 2021 12:03PM [facility] 0804 - BD DXA - AXIAL SKELETON [...] Osteoporosis Less than or equal to -2.5 Mixer Blender: AKIL Transcribe Date/Time: Aug 07 2021 12:13P Dictated by : RINA YOST MD This examination was interpreted and the report reviewed and electronically signed by: RINA YOST MD on Aug 07 2021 12:14PM EST [id number] Normal [facility] Office Visiton 01-18-2017 Documentation of current medications (procedure) Done Invalid Interpretation Code [facility] Work Phone: Protein mass conc Done [facility] Work Phone: Tobacco smoking status NHIS Never smoker [facility] Work Phone: Tobacco use CPHS Never smoker Invalid Interpretation Code [facility] Work Phone: Office Visiton 12-12-2016 Documentation of current medications (procedure) Done Invalid Interpretation Code [facility] Work Phone: Tobacco use CPHS Never smoker Invalid Interpretation Code [facility] Work Phone: [phone] Lab Report: Bedside Glucoseo n 11-27-2016 Glucose 123 mg/dL High 70-110 [facility] Work Phone: [phone] Glucose mass conc 123 mg/dL High 70-110 [facility] Work Phone: [phone] Lab Report: Hemoglobin A1con 11-22-2016 HbA1c 7.4 % High 4.2-6.3 [facility] Work Phone: [phone] Lab Report: Partial Thrombop last Timeon 11-22-2016 aPTT 30.9 s Invalid Interpretation Code 24.1-36.2 [facility] Work Phone: [phone] Lab Report: Prothrombin Time w/INRon 11-22-2016 Coagulation tissue factor induced in platelet poor plasma 12.6 s Invalid Interpretation Code 11.7-14.9 [facility] Work Phone: [phone] INR Coag RelTime (PPP) 1.0 {INR} [facility] Work Phone: [phone] INR in blood by coagulation 1.0 {INR} Invalid Interpretation Code [facility] Work Phone: [phone] Office Visiton 11-14-2016 Documentation of current medications (procedure) Done Invalid Interpretation Code [facility] Work Phone: [phone] Tobacco use CPHS Never smoker Invalid Interpretation Code [facility] Work Phone: [phone] Office Visiton 08-27-2016 Documentation of current medications (procedure) Done Invalid Interpretation Code [facility] Work Phone: [phone] Tobacco use CPHS Never smoker Invalid Interpretation Code [facility] Work Phone: [phone] Vital Signs Date Time Vital Sign Value Performing Clinician Facility 09-27-2024 04:39-0400 Body temperature 98 [degF] Dr. Dino Pena MD Work Phone: [phone] [place] [address] 09-27-2024 04:39-0400 Diastolic blood pressure 82 mm[Hg] Dr. Dino Pena MD Work Phone: [phone])358-793371 [place] [address] 09-27-2024 04:39-0400 Heart rate 72 /min Dr. Dino Pena MD Work Phone: [phone] [place] [address] 09-27-2024 04:39-0400 Respiratory rate 18 /min Dr. Dino Pena MD Work Phone: [phone])096-887335 [place] [address] 09-27-2024 04:39-0400 SaO2% (BldA) [Mass fraction] 93 % Dr. Dino Pena MD Work Phone: [phone] [place] [address] 09-27-2024 04:39-0400 Systolic blood pressure 160 mm[Hg] Dr. Dino Pena MD Work Phone: [phone] [place] [address] 09-27-2024 01:36-0400 Body height 160.[address] Dino Pena MD Work Phone: [phone] [place] [address] 09-13-2024 04:51-0500 Diastolic blood pressure 61 mm[Hg] Dr. Dino Pena MD Work Phone: [phone])448-698335 [place] [address] 09-13-2024 04:51-0500 Heart rate 77 /min Dr. Dino Pena MD Work Phone: [phone])580-909371 [place] [address] 09-13-2024 04:51-0500 Inhaled oxygen flow rate 2 L/min Dr. Dino Pena MD Work Phone: [phone] [place] [address] 09-13-2024 04:51-0500 Respiratory rate 19 /min Dr. Dino Pena MD Work Phone: [phone] [place] [address] 09-13-2024 04:51-0500 SaO2% (BldA) [Mass fraction] 95 % Dr. Dino Pena MD Work Phone: 6([phone])228-392771 [place] [address] 09-13-2024 04:51-0500 Systolic blood pressure 111 mm[Hg] Dr. Dino Pena MD Work Phone: [facility] 09-13-2024 00:52-0500 Body temperature 98 [degF] Dr. Dino Pena MD Work Phone: [facility] 09-12-2024 22:06-0500 Body mass index (BMI) [Ratio] 38.1 kg/m2 Dr. Dino Pena MD Work Phone: [facility] 09-12-2024 22:06-0500 Body weight 97.[address] Dino Pena MD Work Phone: [facility] 07-27-2024 13:31-0500 Body temperature 97.7 [degF] [facility] 07-27-2024 13:31-0500 Diastolic blood pressure 74 mm[Hg] [facility] 07-27-2024 13:31-0500 Heart rate 70 /min [facility] 07-27-2024 13:31-0500 Respiratory rate 16 /min [facility] 07-27-2024 13:31-0500 SaO2% (BldA) [Mass fraction] 97 % [facility] 07-27-2024 13:31-0500 Systolic blood pressure 130 mm[Hg] [facility] 11-24-2023 21:43-0400 Body temperature 97.1 [degF] Dr. Chilango Laughlin Work Phone: [facility] 11-24-2023 21:43-0400 Diastolic blood pressure 73 mm[Hg] Dr. Chilango Laughlin Work Phone: [facility] 11-24-2023 21:43-0400 Heart rate 81 /min Dr. Chilango Laughlin Work Phone: [facility] 11-24-2023 21:43-0400 Respiratory rate 16 /min Dr. Chilango Laughlin Work Phone: [facility] 11-24-2023 21:43-0400 SaO2% (BldA) [Mass fraction] 95 % Dr. Chilango Laughlin Work Phone: [facility] 11-24-2023 21:43-0400 Systolic blood pressure 161 mm[Hg] Dr. Chilango Laughlin Work Phone: [facility] 11-24-2023 16:26-0400 Body height 160.[address] Chilango Laughlin Work Phone: [facility] 11-24-2023 16:26-0400 Body mass index (BMI) [Ratio] 38.7 kg/m2 Dr. Chilango Laughlin Work Phone: [facility] 11-24-2023 16:26-0400 Body weight 99.[address] Chilango Laughlin Work Phone: [facility] 11-21-2023 08:45-0400 Body temperature 96.6 [degF] Dr. Chilango Laughlin Work Phone: [facility] 11-21-2023 08:45-0400 Diastolic blood pressure 72 mm[Hg] Dr. Chilango Laughlin Work Phone: [facility] 11-21-2023 08:45-0400 Heart rate 84 /min Dr. Chilango Laughlin Work Phone: [facility] 11-21-2023 08:45-0400 Respiratory rate 15 /min Dr. Chilango Laughlin Work Phone: [facility] 11-21-2023 08:45-0400 Systolic blood pressure 146 mm[Hg] Dr. Chilango Laughlin Work Phone: [facility] 11-07-2023 09:41-0400 Body temperature 97.5 [degF] Dr. Chilango Laughlin Work Phone: [facility] 11-07-2023 09:41-0400 Diastolic blood pressure 47 mm[Hg] Dr. Chilango Laughlin Work Phone: [facility] 11-07-2023 09:41-0400 Heart rate 67 /min Dr. Chilango Laughlin Work Phone: [facility] 11-07-2023 09:41-0400 Respiratory rate 18 /min Dr. Chilango Laughlin Work Phone: [facility] 11-07-2023 09:41-0400 Systolic blood pressure 111 mm[Hg] Dr. Chilango Laughlin Work Phone: [facility] 10-10-2023 09:50-0400 Body temperature 97.4 [degF] Dr. Chilango Laughlin Work Phone: [facility] 10-10-2023 09:50-0400 Diastolic blood pressure 52 mm[Hg] Dr. Chilango Laughlin Work Phone: [facility] 10-10-2023 09:50-0400 Heart rate 80 /min Dr. Chilango Laughlin Work Phone: [facility] 10-10-2023 09:50-0400 Respiratory rate 18 /min Dr. Chilango Laughlin Work Phone: [facility] 10-10-2023 09:50-0400 Systolic blood pressure 113 mm[Hg] Dr. Chilango Laughlin Work Phone: [facility] 09-20-2023 11:29-0500 Body temperature 97.5 [degF] Chair Bath Work Phone: [facility] 09-20-2023 11:29-0500 Diastolic blood pressure 80 mm[Hg] Chair [facility] Work Phone: [facility] 09-20-2023 11:29-0500 Heart rate 86 /min [facility] Work Phone: [facility] 09-20-2023 11:29-0500 Respiratory rate 18 /min Chair [facility] Work Phone: [facility] 09-20-2023 11:29-0500 SaO2% (BldA) [Mass fraction] 96 % [facility] Work Phone: [facility] 09-20-2023 11:29-0500 Systolic blood pressure 129 mm[Hg] Chair Bath Work Phone: [facility] 09-05-2023 09:29-0500 Body temperature 96.3 [degF] Dr. Chilango Laughlin Work Phone: [facility] 09-05-2023 09:29-0500 Diastolic blood pressure 65 mm[Hg] Dr. Chilango Laughlin Work Phone: [facility] 09-05-2023 09:29-0500 Heart rate 77 /min Dr. Chilango Laughlin Work Phone: [facility] 09-05-2023 09:29-0500 Respiratory rate 18 /min Dr. Chilango Laughlin Work Phone: [facility] 09-05-2023 09:29-0500 Systolic blood pressure 132 mm[Hg] Dr. Chilango Laughlin Work Phone: [facility] 08-08-2023 09:02-0500 Body temperature 96.5 [degF] Dr. Chilango Laughlin Work Phone: [facility] 08-08-2023 09:02-0500 Diastolic blood pressure 60 mm[Hg] Dr. Chilango Laughlin Work Phone: [facility] 08-08-2023 09:02-0500 Heart rate 84 /min Dr. Chilango Laughlin Work Phone: [facility] 08-08-2023 09:02-0500 Respiratory rate 20 /min Dr. Chilango Laughlin Work Phone: [facility] 08-08-2023 09:02-0500 Systolic blood pressure 112 mm[Hg] Dr. Chilango Laughlin Work Phone: [facility] 07-11-2023 08:53-0500 Body temperature 96.3 [degF] Dr. Chilango Laughlin Work Phone: [facility] 07-11-2023 08:53-0500 Diastolic blood pressure 62 mm[Hg] Dr. Chilango Laughlin Work Phone: [facility] 07-11-2023 08:53-0500 Heart rate 81 /min Dr. Chilango Laughlin Work Phone: [facility] 07-11-2023 08:53-0500 Respiratory rate 18 /min Dr. Chilango Laughlin Work Phone: [facility] 07-11-2023 08:53-0500 Systolic blood pressure 114 mm[Hg] Dr. Chilango Laughlin Work Phone: [facility] 06-13-2023 09:52-0500 Body temperature 95.6 [degF] Dr. Chilango Laughlin Work Phone: [facility] 06-13-2023 09:52-0500 Diastolic blood pressure 62 mm[Hg] Dr. Chilango Laughlin Work Phone: [facility] 06-13-2023 09:52-0500 Heart rate 97 /min Dr. Chilango Laughlin Work Phone: [facility] 06-13-2023 09:52-0500 Respiratory rate 16 /min Dr. Chilango Laughlin Work Phone: [facility] 06-13-2023 09:52-0500 Systolic blood pressure 142 mm[Hg] Dr. Chilango Laughlin Work Phone: [facility] 05-02-2023 09:16-0400 Body temperature 96.5 [degF] Dr. Bianca Palomares [facility] 05-02-2023 09:16-0400 Diastolic blood pressure 66 mm[Hg] Dr. Bianca Palomares [facility] 05-02-2023 09:16-0400 Heart rate 64 /min Dr. Bianca Palomares [facility] 05-02-2023 09:16-0400 Respiratory rate 16 /min Dr. Bianca Palomares [facility] 05-02-2023 09:16-0400 Systolic blood pressure 135 mm[facility] 09:55-0400 Body temperature 96 [degF] Dr. Bianca Palomares [facility] 04-11-2023 09:55-0400 Diastolic blood pressure 63 mm[facility]Hg[facility]-11-[facility] 09:55-0400 Heart rate 66 /[facility] 09:55-0400 Respiratory rate 18 /[facility]-11-[facility] 09:55-0400 Systolic blood pressure 114 mm[facility]Hg[facility] 03-14-2023 09:18-0400 Body temperature 96.8 [degF] Dr. Bianca Palomares [facility] 03-14-2023 09:18-0400 Diastolic blood pressure 66 mm[Hg[facility] 03-14-2023 09:18-0400 Heart rate 73 /[facility]-14-[facility] 09:18-0400 Respiratory rate 18 /[facility]-14-2023 09:18-0400 Systolic blood pressure 122 mm[Hg[facility] 03-13-2023 13:01-0400 Body temperature 97 [degF] Chair Bath Work Phone: [facility] 03-13-2023 13:01-0400 Diastolic blood pressure 67 mm[Hg] Chair Bath Work Phone: [facility] 03-13-2023 13:01-0400 Heart rate 72 /min Chair [facility] Work Phone: [facility] 03-13-2023 13:01-0400 Respiratory rate 18 /min Chair [facility] Work Phone: [facility] 03-13-2023 13:01-0400 Systolic blood pressure 117 mm[Hg] Chair Bath Work Phone: [facility] 02-07-2023 09:16-0400 Body temperature 97 [degF] Dr. Chilango Laughlin Work Phone: [facility] 02-07-2023 09:16-0400 Diastolic blood pressure 55 mm[Hg] Dr. Chilango Laughlin Work Phone: [facility] 02-07-2023 09:16-0400 Heart rate 72 /min Dr. Chilango Laughlin Work Phone: [facility] 02-07-2023 09:16-0400 Respiratory rate 18 /min Dr. Chilango Laughlin Work Phone: [facility] 02-07-2023 09:16-0400 Systolic blood pressure 106 mm[Hg] Dr. Chilango Laughlin Work Phone: [facility] 01-16-2023 12:52-0400 Body temperature 98.2 [degF] Dr. Chilango Laughlin Work Phone: [facility] 01-16-2023 12:52-0400 Diastolic blood pressure 70 mm[Hg] Dr. Chilango Laughlin Work Phone: [facility] 01-16-2023 12:52-0400 Heart rate 64 /min Dr. Chilango Laughlin Work Phone: [facility] 01-16-2023 12:52-0400 Respiratory rate 16 /min Dr. Chilango Laughlin Work Phone: [facility] 01-16-2023 12:52-0400 SaO2% (BldA) [Mass fraction] 96 % Dr. Chilango Laughlin Work Phone: [facility] 01-16-2023 12:52-0400 Systolic blood pressure 112 mm[Hg] Dr. Chilango Laughlin Work Phone: [facility] 01-11-2023 13:25-0400 Body temperature 97.8 [degF] Dr. Chilango Laughlin Work Phone: [facility] 01-11-2023 13:25-0400 Diastolic blood pressure 59 mm[Hg] Dr. Chilango Laughlin Work Phone: [facility] 01-11-2023 13:25-0400 Heart rate 72 /min Dr. Chilango Laughlin Work Phone: [facility] 01-11-2023 13:25-0400 Respiratory rate 18 /min Dr. Chilango Laughlin Work Phone: [facility] 01-11-2023 13:25-0400 Systolic blood pressure 120 mm[Hg] Dr. Chilango Laughlin Work Phone: [facility] 12-06-2022 09:36-0400 Body temperature 96.6 [degF] Dr. Chilango Laughlin Work Phone: [facility] 12-06-2022 09:36-0400 Diastolic blood pressure 72 mm[Hg] Dr. Chilango Laughlin Work Phone: [facility] 12-06-2022 09:36-0400 Heart rate 73 /min Dr. Chilango Laughlin Work Phone: [facility] 12-06-2022 09:36-0400 Respiratory rate 18 /min Dr. Chilango Laughlin Work Phone: [facility] 12-06-2022 09:36-0400 Systolic blood pressure 122 mm[Hg] Dr. Chilango Laughlin Work Phone: [facility] 10-17-2022 05:30-0400 Diastolic Blood Pressure Non-Invasive [address] MAKENNA HYATT MD [facility] 10-17-2022 05:30-0400 Heart rate 75 /min DR MAKENNA HYATT MD [facility] 10-17-2022 05:30-0400 Respiratory rate 18 /min DR MAKENNA HYATT MD [facility] 10-17-2022 05:30-0400 Systolic Blood Pressure Non-Invasive [address] MAKENNA HYATT MD [facility] 10-17-2022 04:05-0400 Body temperature 99.32 [degF] DR MAKENNA HYATT MD [facility] 10-17-2022 04:05-0400 Diastolic Blood Pressure Non-Invasive [address] MAKENNA HYATT MD [facility] 10-17-2022 04:05-0400 Heart rate 72 /min DR MAKENNA HYATT MD [facility] 10-17-2022 04:05-0400 Respiratory rate 18 /min DR MAKENNA HYATT MD [facility] 10-17-2022 04:05-0400 Systolic Blood Pressure Non-Invasive [address] MAKENNA HYATT MD [facility] 09-05-2022 09:41-0500 Diastolic blood pressure 73 mm[Hg] [facility] 09-05-2022 09:41-0500 Heart rate 78 /min [facility] 09-05-2022 09:41-0500 Systolic blood pressure 131 mm[Hg] [facility] 04-28-2022 17:23-0400 Body temperature 98.6 [degF] TAVIA NORRIS MD [facility] 04-28-2022 17:23-0400 Diastolic blood pressure 49 mm[Hg] TAVIA NORRIS MD [facility] 04-28-2022 17:23-0400 Heart rate 71 /min TAVIA NORRIS MD [facility] 04-28-2022 17:23-0400 Respiratory rate 18 /min TAVIA NORRIS MD [facility] 04-28-2022 17:23-0400 Systolic blood pressure 179 mm[Hg] TAVIA NORRIS MD [facility] 03-07-2022 09:32-0400 Body temperature 98.2 [degF] Bed Bath Work Phone: [facility] 03-07-2022 09:32-0400 Body weight 91.4 kg Bed Bath Work Phone: [facility] 03-07-2022 09:32-0400 Diastolic blood pressure 76 mm[Hg] Bed Bath Work Phone: [facility] 03-07-2022 09:32-0400 Heart rate 69 /min Bed Bath Work Phone: [facility] 03-07-2022 09:32-0400 Respiratory rate 18 /min Bed Bath Work Phone: [facility] 03-07-2022 09:32-0400 Systolic blood pressure 125 mm[Hg] Bed Bath Work Phone: [facility] 01-31-2022 08:52-0400 Body temperature 97.7 [degF] Berenice Barile PA-C Work Phone: [facility] 01-31-2022 08:52-0400 Diastolic blood pressure 76 mm[Hg] Berenice Barile PA-C Work Phone: [facility] 01-31-2022 08:52-0400 Heart rate 78 /min Berenice Barile PA-C Work Phone: [facility] 01-31-2022 08:52-0400 SaO2% (BldA) [Mass fraction] 92 % Berenice Edmond PA-C Work Phone: [facility] 01-31-2022 08:52-0400 Systolic blood pressure 120 mm[Hg] Berenice Edmond PA-C Work Phone: [facility] 12-13-2021 09:33-0400 Diastolic blood pressure 58 mm[Hg] Ronaldo Villarreal MD Work Phone: [facility] 12-13-2021 09:33-0400 Heart rate 86 /min Ronaldo Villarreal MD Work Phone: [facility] 12-13-2021 09:33-0400 Respiratory rate 15 /min Ronaldo Villarreal MD Work Phone: [facility] 12-13-2021 09:33-0400 SaO2% (BldA) [Mass fraction] 98 % Ronaldo Villarreal MD Work Phone: [facility] 12-13-2021 09:33-0400 Systolic blood pressure 133 mm[Hg] Ronaldo Villarreal MD Work Phone: [facility] 12-01-2021 05:50-0400 Diastolic blood pressure 57 mm[Hg] LANA ZAPIEN DO [facility] 12-01-2021 05:50-0400 Heart rate 94 /min LANA ZAPIEN DO [facility] 12-01-2021 05:50-0400 Respiratory rate 15 /min LANA ZAPIEN DO [facility] 12-01-2021 05:50-0400 Systolic blood pressure 116 mm[Hg] ALNA ZAPIEN DO [facility] 12-01-2021 02:13-0400 Body temperature 100.04 [degF] LANA ZAPIEN DO [facility] 12-01-2021 02:13-0400 Diastolic blood pressure 77 mm[Hg] LANA ZAPIEN DO [facility] 12-01-2021 02:13-0400 Heart rate 104 /min LANA ZAPIEN DO [facility] 12-01-2021 02:13-0400 Respiratory rate 18 /min LANA ZAPIEN DO [facility] 12-01-2021 02:13-0400 Systolic blood pressure 151 mm[Hg] LANA ZAPIEN DO [facility] 11-30-2021 20:11-0400 Diastolic blood pressure 56 mm[Hg] LANA ZAPIEN DO [facility] 11-30-2021 20:11-0400 Heart rate 93 /min LANA ZAPIEN DO [facility] 11-30-2021 20:11-0400 Systolic blood pressure 92 mm[Hg] LANA ZAPIEN DO [facility] 11-30-2021 18:28-0400 Body temperature 100.4 [degF] LANA ZAPIEN DO [facility] 11-30-2021 18:28-0400 Body weight 87.3 kg LANA ZAPIEN DO [facility] 11-30-2021 18:28-0400 Heart rate 114 /min LANA ZAPIEN DO [facility] 11-30-2021 18:28-0400 Respiratory rate 20 /min LANA ZAPIEN DO [facility] 11-29-2021 13:15-0400 Body temperature 97.2 [degF] Chair Bath Work Phone: [facility] 11-29-2021 13:15-0400 Diastolic blood pressure 73 mm[Hg] Chair Bath Work Phone: [facility] 11-29-2021 13:15-0400 Heart rate 82 /min Chair Bath Work Phone: [facility] 11-29-2021 13:15-0400 Respiratory rate 20 /min Chair Bath Work Phone: [facility] 11-29-2021 13:15-0400 Systolic blood pressure 116 mm[Hg] Chair Bath Work Phone: [facility] 03-23-2016 14:49-0400 Weight 78.[address] [facility] Work Phone: Encounters Encounter Date Encounter Type Care Provider Facility Start: 01-21-2025 ambulatory Fer Simmons Facility :[facility] Start: 11-20-2024 End: 11-20-2024 ambulatory Gianna Nelson Facility:[facility] Start: 10-01-2024 End: 10-01-2024 ambulatory MAULIK العلي DO Facility:A Start: 10-01-2024 End: 10-01-2024 Patient encounter procedure MAULIK العلي DO [facility] Start: 09-27-2024 End: 09-27-2024 Emergency department patient visit Dr. Dino Pena MD Work Phone: -Emergency Department Work Phone: Start: 09-12-2024 End: 09-13-2024 Emergency department patient visit Dr. 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 (Primary Dx) Start: 07-27-2024 End: 07-27-2024 ambulatory Chair 3 Infusion [facility] [place] Start: 07-16-2024 End: 07-16-2024 Telephone encounter Funmilayo Pope MD Work Phone: [facility] Arthritis & Rheumatology Comment on above: Medication Preauthor ization ([employer] Approved [id number] [facility] Medicare/Portal 07.15.24-07.15.25 2 visits) Start: 06-04-2024 End: 06-04-2024 ambulatory PHY WO ID REFERRING Facility:A Start: 06-04-2024 End: 06-04-2024 Patient encounter procedure PHY WO ID REFERRING [facility] Start: 04-08-2024 End: 04-08-2024 Emergency department patient visit [place] Facility:[facility] Start: 03-25-2024 ambulatory [facility] Facility:[facility] Start: 03-23-2024 End: 03-23-2024 Telephone encounter Funmilayo Pope MD Work Phone: [facility] Comment on above: Appointment Start: 03-21-2024 End: 03-22-2024 Emergency department patient visit Oswaldo Lo Facility:[facility] Start: 02-20-2024 End: 03-14-2024 ambulatory Bianca Gudla Facility:[facility] Start: 02-12-2024 ambulatory Beata Liao Facility:[facility] Start: 02-07-2024 End: 02-07-2024 ambulatory Lauren Ruelas Facility:[facility] Start: 02-06-2024 End: 02-12-2024 ambulatory Karthikeyan Grove Facility:[facility] Start: 11-24-2023 End: 11-24-2023 Emergency department patient visit Dr. Chilango Laughlin Work Phone: [facility]-Emergency Department Work Phone: Start: 11-21-[address] Brenda Laughlin [facility] Work Phone: Start: 11-07-2023 End: 11-12-[address] Chilango Laughlin Work Phone: [facility] Work Phone: Start: 11-07-2023 End: 11-12-[address] Chilango Laughlin Work Phone[facility] [place] Work Phone: Start: 10-11-2023 End: 10-11-[address] Chilango Laughlin Work Phone: [facility] Work Phone: Start: 10-11-2023 End: 10-11-[address] Chilango Laughlin Work Phone: [facility] Work Phone: Start: 10-10-2023 End: 10-13-[address] Chilango Laughlin Work Phone: [facility] Work Phone: Start: 10-10-2023 End: 10-13-[address] Chilango Laughlin Work Phone: [facility] Work Phone: Start: 10-04-2023 End: 10-05-2023 ambulatory MAULIK العلي Facility:B Start: 10-04-2023 End: 10-04-2023 Patient encounter procedure MAULIK العلي DO [facility] Start: 09-26-2023 Non-patient / Non-visit Dr. Anais Laughlin Work Phone: [facility] Work Phone: Start: 09-23-2023 End: 09-24-2023 ambulatory MAULIK LOBOODETTE Facility:A Start: 09-20-2023 End: 09-20-2023 ambulatory Chair 3 [facility] Work Phone: Hematology/Oncology Comment on above: Other osteoporosis w ithout current pathological fracture (Primary Dx) Start: 09-19-2023 Non-patient / Non-visit Dr. Anais Laughlin Work Phone: [facility] Work Phone: Start: 09-10-2023 Telephone encounter Funmilayo colunga MD Work Phone: [facility] General Rheumatology and Arthritis Comment on above: Results Start: 09-05-2023 Non-patient / Non-visit Dr. Anais Laughlin Work Phone: [facility] Work Phone: Start: 09-05-2023 End: 09-12-[address] Chilango Laughlin Work Phone: [facility] Work Phone: Start: 09-05-2023 End: 09-12-[address] Chilango Laughlin Work Phone[facility] Work Phone: Start: 08-29-2023 Non-patient / Non-visit Dr. Anais Laughlin Work Phone: [facility] Work Phone: Start: 08-22-2023 Non-patient / Non-visit Dr. Anais Laughlin Work Phone: [facility] Work Phone: Start: 08-15-2023 Non-patient / Non-visit Dr. Anais Laughlin Work Phone: [facility] Work Phone: Start: 08-08-2023 Non-patient / Non-visit Dr. Anais Laughlin Work Phone: [facility] Work Phone: Start: 08-08-2023 End: 08-14-[address] Chilango Laughlin Work Phone: [facility] Work Phone: Start: 08-08-2023 End: 08-14-[address] Chilango Laughlin Work Phone: [facility] Work Phone: Start: 08-01-2023 Non-patient / Non-visit Dr. Anais Laughlin Work Phone: [facility] Work Phone: Start: 07-25-2023 Non-patient / Non-visit Dr. Anais Laughlin Work Phone: [facility] Work Phone: Start: 07-11-2023 Non-patient / Non-visit Dr. Anais Laughlin Work Phone: [facility] Work Phone: Start: 07-11-2023 End: 07-14-[address] Chilango Laughlin Work Phone: [facility] Work Phone: Start: 07-11-2023 End: 07-14-[address] Chilango Laughlin Work Phone: [facility] Work Phone: Start: 06-13-2023 Non-patient / Non-visit Dr. Anais Laughlin Work Phone: [facility] Work Phone: Start: 06-13-2023 End: 06-13-[address] Chilango Laughlin Work Phone: [facility] Work Phone: Start: 06-13-2023 End: 06-13-[address] Chilango Laughlin Work Phone: [facility] Work Phone: Start: 05-30-2023 Non-patient / Non-visit Dr. Anais Laughlin Work Phone: [facility] Work Phone: Start: 05-23-2023 Non-patient / Non-visit Dr. Anais Laughlin Work Phone: [facility] Work Phone: Start: 05-16-2023 Non-patient / Non-visit Dr. Anais Laughlin Work Phone: [facility] Work Phone: Start: 05-02-2023 Non-patient / Non-visit Dr. Bianca sigala [facility] Work Phone: Start: 05-02-2023 End: 05-14-[address] Bianca Palomares [facility] Work Phone: Start: 05-02-2023 End: 05-14-[address] Bianca Palomares [facility] Work Phone: Start: 04-25-2023 Non-patient / Non-visit Dr. Bianca sigala [facility] Work Phone: Start: 04-18-2023 Non-patient / Non-visit Dr. Bianca sigala [facility] Work Phone: Start: 04-11-2023 Non-patient / Non-visit Dr. Bianca sigala [facility] Work Phone: Start: 04-11-2023 End: 04-13-[address] Bianca Palomares [facility] Work Phone: Start: 04-05-2023 End: 04-05-[address] Bianca Palomares [facility] Work Phone: Start: 04-04-2023 Non-patient / Non-visit Dr. Bianca Carey [facility] Work Phone: Start: 03-28-2023 Non-patient / Non-visit Dr. Bianca Carey [facility] Work Phone: Start: 03-26-2023 Telephone encounter Funmilayo colunga MD Work Phone: [facility] Arthritis & Rheumatology Comment on above: APPROVED ([employer] ([employer] APPROVED [id number] 03.26.23 - 03.26.24 for 2 visits [facility] Medicare/Portal) Start: 03-21-2023 Non-patient / Non-visit Dr. Bianca Carey [facility] Work Phone: Start: 03-14-2023 Non-patient / Non-visit Dr. Bianca Carey [facility] Work Phone: Start: 03-14-2023 End: 03-14-[address] Bianca Palomares [facility] Work Phone: Start: 03-13-2023 Telephone encounter Self Hem atology/Oncology Start: 03-13-2023 End: 03-13-2023 ambulatory Chair 7 [facility] Work Phone: Hematology/Oncology Comment on above: Osteoporosis, unspec ified osteoporosis type, unspecified pathological fracture presence (Primary Dx) Start: 03-07-2023 Non-patient / Non-visit Dr. Bianca sigala [facility] Work Phone: Start: 03-06-2023 Telephone encounter Funmilayo colunga MD Work Phone: [facility] General Rheumatology and Arthritis Comment on above: Orders Start: 03-01-2023 End: 03-01-[address] Bianca Palomares [facility] Work Phone: Start: 02-21-2023 Non-patient / Non-visit Dr. Bianca sigala [facility] Work Phone: Start: 02-08-2023 End: 02-08-[address] Chilango Laughlin Work Phone: [facility] Work Phone: Start: 02-07-2023 Non-patient / Non-visit Dr. Anais Laughlin Work Phone: [facility] Work Phone: Start: 02-07-2023 End: 02-11-[address] Chilango Laughlin Work Phone: [facility] Work Phone: Start: 02-07-2023 End: 02-11-[address] Chilango Laughlin Work Phone[facility] Work Phone: Start: 01-31-2023 Non-patient / Non-visit Dr. Anais Laughlin Work Phone: [facility] Work Phone: Start: 01-24-2023 Non-patient / Non-visit Dr. Anais Laughlin Work Phone: [facility] Work Phone: Start: 01-18-2023 End: 01-18-[address] Chilango Laughlin Work Phone: [facility] Work Phone: Start: 01-17-2023 Non-patient / Non-visit Dr. Anais Laughlin Work Phone: [facility] Work Phone: Start: 01-16-2023 End: 01-16-[address] Chilango Laughlin Work Phone: [facility] Vascular Surgery Work Phone: Start: 01-11-2023 Non-patient / Non-visit Dr. Anais Laughlin Work Phone: [facility] Start: 01-11-2023 End: 01-11-[address] Chilango Laughlin Work Phone: [facility] Work Phone: Start: 01-11-2023 End: 01-11-[address] Chilango Laughlin Work Phone[facility] Work Phone: Start: 01-03-2023 Non-patient / Non-visit Dr. Anais Laughlin Work Phone: [facility] Work Phone: Start: 01-02-2023 End: 01-02-[address] Chilango Laughlin Work Phone: [facility] Work Phone: Start: 12-20-2022 Non-patient / Non-visit Dr. Anais Laughlin Work Phone: [facility] Work Phone: Start: 12-18-2022 End: 12-18-[address] Chilango Laughlin Work Phone: [facility] Work Phone: Start: 12-13-2022 Non-patient / Non-visit Dr. Anais Laughlin Work Phone: [facility] Work Phone: Start: 12-06-2022 Non-patient / Non-visit Dr. Anais Laughlin Work Phone: [facility] Start: 12-06-2022 End: 12-12-[address] Chilango Laughlin Work Phone: [facility] Work Phone: Start: 12-06-2022 End: 12-12-[address] Chilango Laughlin Work [facility] Start: 11-29-2022 Non-patient / Non-visit Dr. Anais Laughlin Work Phone: [facility] Start: 11-22-2022 Non-patient / Non-visit Dr. Anais Laughlin Work Phone: [facility] Start: 10-17-2022 End: 10-17-2022 Emergency department patient visit DR MAKENNA HYATT MD Facility:B Start: 10-17-2022 End: 10-17-2022 Emergency department patient visit DR MAKENNA HYATT MD [facility] Start: 09-13-2022 End: 09-13-2022 Patient encounter procedure Funmilayo Pope MD Work Phone: [facility] General Rheumatology and Arthritis Comment on above: Low back pain, unspe cified back pain laterality, unspecified chronicity, unspecified whether sciatica present (Primary Dx); Pain in both lower extremities; Osteoporosis, unspecified osteoporosis type, unspecified pathological fracture presence Start: 09-05-2022 End: 09-05-2022 ambulatory Chair 1 [facility] Comment on above: Other osteoporosis w ithout current pathological fracture (Primary Dx) Start: 05-04-2022 End: 05-04-2022 Patient encounter procedure CHAKA BURGESS JOSE REFERRING [facility] Start: 04-28-2022 End: 04-28-2022 Emergency department patient visit TAVIA NORRIS MD [facility] Start: 03-07-2022 End: 03-07-2022 ambulatory Bed 1 [facility] Work Phone: Hematology/Oncology Comment on [...] Start: 01-08-2022 End: 01-08-[address] [facility], [facility] Start: 12-13-2021 End: 12-13-2021 ambulatory Ronaldo Villarreal MD Work Phone: [facility] Comment on above: Procedure Start: 12-13-2021 End: 12-13-2021 Patient encounter procedure Ronaldo Villarreal MD Work Phone: [facility] Start: 11-30-2021 End: 12-01-2021 Emergency department patient visit LANA ZAPIEN DO [facility] Start: 11-29-2021 End: 11-29-2021 ambulatory Chair 6 [facility] Work Phone: Hematology/Oncology Comment on above: Other osteoporosis w ithout current pathological fracture (Primary Dx) Start: 11-21-2021 End: 11-21-2021 ambulatory Luis Pagan DO Work Phone: [facility] Start: 11-21-2021 End: 11-21-2021 Patient encounter procedure Luis Pagan DO Work Phone: [facility] Start: 11-09-2021 Telephone encounter Ronaldo Villarreal MD [facility] Comment on above: Patient Update (NEW PHONE NUMBER) Start: 10-17-2021 Telephone encounter Funmilayo colunga MD Work Phone: [facility] Rheumatology [facility] Arthritis Comment on above: Medication Follow-up Start: 01-01-2017 Ambulatory [facility] Procedures Date Procedure Procedure Detail Performing Clinician [...] Start: 07-18-[address] Chilango Laguhlin Work Phone: Start: 07-18-2023 Investigation of transfusion [...] procedure 01/25/2025 2:00 PM EDT Infusion Center [facility] [address] [place] [address] //// prolia [facility] Comment on above: //// prolia Start: 09-27-2024 [facility] Start: 09-13-2024 [facility] Start: 07-27-2024 End: 07-27-2024 Patient encounter procedure 07/27/2024 1:30 PM EST Infusion Center [facility] [address] [place] [address] * prolia [facility] Comment on above: * [facility] Start: 03-15-2024 Covid-19 Vaccine ( season) Covid-19 Vaccine () [facility] Start: 03-15-2024 Covid-19 Vaccine ( season) Covid-19 Vaccine ( season) [facility] Start: 03-15-2024 Influenza vaccination Influenza Vacc ine (#1) [facility] Start: 11-24-2023 [facility] Start: 11-24-2023 [facility] Start: 11-24-2023 Brain natriuretic peptide measurement [facility] Start: 07-15-2023 Depression Assessment Depression Ass essment [facility] Start: 03-15-2023 Covid-19 Vaccine ( season) Covid-19 Vaccine ( season) [facility] Start: 03-15-2023 Influenza vaccination [facility] Start: 01-31-2023 BP CONTROLLED (<130/80) BP CONTROLLE D (<130/80) [facility] Start: 07-15-2022 DEPRESSION ASSESSMENT DEPRESSION ASS ESSMENT [facility] Start: 05-31-2022 BP CONTROLLED (<130/80) BP CONTROLLE D (<130/80) [facility] Start: 05-11-2022 Adult depression screening assessment DEPRESSION SCREENING [facility] Start: 03-15-2022 Influenza vaccination C [facility] Start: 02-28-2022 Hepatitis B screening URINE ALBUMIN:CREATININE RATIO [facility] Start: 01-31-2022 End: 04-02-2022 25-hydroxyvitamin D3 [Mass/volume] in Serum or Plasma VITAMIN D 25 HYDROXY Lab Routine Vitamin D deficiency Expected: 01/31/2022, Expires: 04/02/2022 [facility] Work Phone: Comment on above: Expected: 01/31/2022 , Expires: 04/02/2022 Start: 2021 RSV Vaccine (1 - 1-d ose 60+ series) RSV Vaccine (1 - 1-dose 60+ series) [facility] Start: 2021 RSV Vaccine (1 - Ris k 60-74 years 1-dose series) RSV Vaccine (1 - Risk 60-74 years 1-dose series) [facility] Start: 01-14-2021 COVID-19 VACCINE (3 - Booster for Pfizer series) COVID-19 VACCINE (3 - Booster for Pfizer series) [facility] Start: 10-12-2020 COVID-19 VACCINE (3 - Booster for Pfizer series) COVID-19 VACCINE (3 - Booster for Pfizer series) [facility] Start: 10-12-2020 COVID-19 VACCINE (3 - Pfizer series) COVID-19 VACCINE (3 - Pfizer series) [facility] Start: 12-22-2017 Colonoscopy COLONOSCOPY [facility] Start: 12-22-2017 COLORECTAL CANCER SCREENING COLORECTAL CANCER SCREENING [facility] Start: 12-22-2017 Screening for malign ant neoplasm of colon [facility] Start: 02-28-2017 End: 02-28-2017 Appointment Appointment [facility] Work Phone: Start: 01-18-2017 End: 01-18-2017 Appointment Appointment [facility] Work Phone: Start: 12-19-2016 End: 12-19-2016 Physical Therapy General [facility], [address] [place] [address], [id number] [facility] Work Phone: Start: 12-12-2016 End: 12-12-2016 Appointment Appointment [facility] Work Phone: Start: 11-27-2016 End: 11-27-2016 Appointment Appointment [facility] Work Phone: Start: 11-14-2016 End: 11-14-2016 Appointment Appointment [facility] Work Phone: Start: 09-05-2016 End: 09-05-2016 Physical Therapy General Physical Therapy [facility], [address] [place] [address], [id number] [facility] [facility] Work Phone: Start: 08-01-2016 End: 08-01-2016 Physical Therapy General Physical Therapy General Rehab Services, [address] [place] [address], [id number] [facility] Work Phone: Start: 07-27-2016 End: 11-23-2016 Ct upper extremity w/o dye CT Upper Extremity [facility] Work Phone: Start: 05-16-2016 End: 06-27-2016 Physical Therapy General Physical Therapy General Re[facility] Services, [address] [place] [address], [id number] [facility] Work Phone: Start: 05-03-2016 End: 11-23-2016 X-ray exam of collar bone X-Ray, Clavicle [facility] Work Phone: Start: 03-23-2016 End: 11-23-2016 X-ray exam of collar bone X-Ray, Clavicle [facility] Work Phone: Start: 08-12-2015 Hepatitis B surface antibody level LDL CHOLESTEROL [facility] Start: 07-03-2015 Glaucoma screening Dilated Retinal E xam [facility] Start: 07-03-2015 Hepatitis C antibody , confirmatory test DILATED RETINAL EXAM [facility] Start: 11-16-2014 3 comp foot exam completed DIABETIC FOOT EXAM [facility] Start: 11-16-2014 Diabetic foot examination Diabetic Foot Exam [facility] Start: 11-10-2014 Hemoglobin A1c measurement HbA1C [facility] Start: 11-10-2014 Hemoglobin A1c/Hemoglobin.total in Blood HBA1C [facility] Start: 11-09-2014 Hepatitis B screening Urine Albumin:Creatinine Ratio [facility] Start: 04-21-2014 Mammography [facility] Start: 04-21-2014 Screening for malign ant neoplasm of breast Mammogram Screening [facility] Start: 10-07-2011 SHINGRIX VACCINE (1 of 2) SHINGRIX VACCINE (1 of 2) [facility] Start: 04-21-2008 PNEUMOCOCCAL (2 - PCV) PNEUMOCOCCAL (2 - PCV) [facility] Start: 04-21-2008 Pneumococcal vaccination [facility] Start: 04-21-2008 Pneumococcal Vaccine : 50+ (2 of 2 - PCV) Pneumococcal Vaccine: 50+ (2 of 2 - PCV) [facility] Start: 2006 COLOGUARD (FIT-DNA) COLOGUARD (FIT-D NA) [facility] Start: [address] COLONOGRAPHY [facility] Start: 2006 FECAL OCCULT BLOOD FECAL OCCULT BLOO D [facility] Start: 2006 Screening for malign ant neoplasm of colon [facility] Start: 2006 SIGMOIDOSCOPY SIGMOIDOSCOPY [facility] Start: 12-14-2004 Urine microalbumin profile [facility] Start: 10-07-1979 ANNUAL PCP TEAM CASINO DEALER JIM DISEASE VISIT ANNUAL PCP TEAM CHRONIC DISEASE VISIT [facility] Start: 10-07-1979 Anxiety Screening Anxiety Screening [facility] Start: 10-07-1979 BP CONTROLLED (<130/80) BP CONTROLLE D (<130/80) [facility] Start: 10-07-1979 Depression Screening Depression Scre ening [facility] Start: 10-07-1979 HIV SCREENING HIV SCREENING [facility] Start: 10-07-1979 HIV screening HIV Screening [facility] End: 09-13-2023 25-hydroxyvitamin D3 [Mass/volume] in Serum or Plasma VITAMIN D 25 HYDROXY Lab Routine Osteoporosis, unspecified osteoporosis type, unspecified pathological fracture presence 2 Occurrences starting 09/13/2022 until 09/13/2023 [facility] Work Phone: Comment on above: 2 Occurrences starti ng 09/13/2022 until 09/13/2023 End: 09-13-2023 Comprehensive metabolic 2000 panel - Serum or Plasma COMP METABOLIC PANEL Lab Routine Osteoporosis, unspecified osteoporosis type, unspecified pathological fracture presence 2 Occurrences starting 09/13/2022 until 09/13/2023 [facility] Work Phone: Comment on above: 2 Occurrences starti ng 09/13/2022 until 09/13/2023 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 single/director of 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 education trigger point 3/> muscles TRIGGER POINT INJECTION MULTI 3+ MUSCLE GRP Procedures Routine Myofascial pain Ordered: 12/13/2021 [facility] Work Phone: Comment on above: Ordered: 12/13/2021 End: 09-13-2023 Parathyrin.intact [Mass/volume] in Serum or Plasma PTH INTACT BLD Lab Routine Osteoporosis, unspecified osteoporosis type, unspecified pathological fracture presence 2 Occurrences starting 09/13/2022 until 09/13/2023 [facility] Work Phone: Comment on above: 2 Occurrences starti ng 09/13/2022 until 09/13/2023 Patient Education [facility] Work Phone: Patient referral [facility] Work Phone: [facility] Immunizations Immunization Date Immunization Notes Care Provider Fa [facility] 03-12-2017 influenza virus vacc ine, unspecified formulation Funmilayo Pope MD Work Phone: [facility] 04-22-2014 influenza, seasonal, injectable Funmilayo Pope MD Work Phone: [facility] 04-13-2013 influenza virus vacc ine, unspecified formulation Funmilayo Pope MD Work Phone: [facility] Work Phone: 05-13-2012 influenza virus vacc ine, unspecified formulation Funmilayo Pope MD Work Phone: [facility] 05-09-2010 influenza virus vacc ine, unspecified formulation Funmilayo Pope MD Work Phone: [facility] Work Phone: 05-15-2007 influenza virus vacc ine, unspecified formulation Funmilayo Pope MD Work Phone: [facility] Work Phone: 04-21-2007 pneumococcal polysaccharide vaccine, 23 valent Funmilayo Pope MD Work Phone: [facility] Work Phone: 05-10-2006 influenza virus vacc ine, unspecified formulation Funmilayo Pope MD Work Phone: [facility] Work Phone: 12-13-2004 tetanus and diphther ia toxoids, adsorbed, preservative free, for adult use (2 Lf of tetanus toxoid and 2 Lf of diphtheria toxoid) Funmilayo Pope MD Work Phone: [facility] Work Phone: Payers Date Payer Category Payer Unknown [id number] 2024 Self-pay [id number] 2023 Unknown [id number] 2022 Unknown [id number] 2015 Medicaid [facility] MEDICAID [id number] 2015-Present [phone] [address] [place] [address] Medicaid [id number] [facility] MEDICAID [id number] 2015-Present [phone] [address] [place] [address] Medicaid [id number] 2015 Unknown [id number] 2003 Medicare MEDICARE MEDICAR E A AND B [id number] 2003-Present [phone] [address] [address] [place] [address] Medicare [id number] 2003 Medicare [id number]. [id number] 1961 Unknown [id number] [id number] 1960 Unknown [id number] 2.16.840.1.721954.3.579.2.627 1961 Unknown [id number] 2.16.840.1.073733.3.579.2.627 1961 Unknown [id number] 2.16.840.1.682786.3.579.2.627 1960 Unknown [id number] 2.16.840.1.665456.3.579.2.627 Medicare [id number] Unknown [id number] 2.16.840.1.232415.3.579.2.462 Unknown [id number] 2.16.840.1.119827.3.579.2.462 Unknown [id number] 2.16.840.1.761575.3.579.2.462 Unknown [id number] 2.16.840.1.887997.3.579.2.462 Unknown [id number] 2.16.840.1.171031.3.579.2.462 Unknown [id number] 2.16.840.1.685136.3.579.2.462 Unknown [id number] 2.16.840.1.326818.3.579.2.462 Unknown [id number] 2.16.840.1.035987.3.579.2.462 Unknown [id number] 2.16.840.1.104407.3.579.2.462 Unknown [id number] 2.16.840.1.975100.3.579.2.462 Unknown [id number] 2.16.840.1.595315.3.579.2.462 Social History Date Type Detail Facility Start: 02-28-2021 End: 09-27-2024 Tobacco smoking status ARIS Smokes tobacco daily [facility] Start: 09-12-1994 End: 09-12-2013 History of tobacco use Cigarette Smoker [facility] Start: 02-28-2021 End: 03-13-2023 Cigarettes smoked current (pack per day) - Reported 0.5 [facility] Start: 02-28-2021 Tobacco use and exposure Smoke less tobacco non-user [facility] Start: 09-13-2021 End: 02-28-2022 Alcohol intake Current non-drinker of alcohol (finding) [facility] Start: 02-28-2021 Tobacco Comment ten cig daily currently, off and on for 19 yrs [facility] Start: 1960 Sex Assigned At Not on file [facility] Start: 11-11-2021 End: 03-07-2022 Exposure to SARS-CoV-2 (event) Not sure [facility] Start: 01-17-2019 Tobacco smoking status Heavy t obacco smoker (finding) [facility] Start: 1960 Sex Assigned At Female A [facility] Start: 07-29-2021 End: 11-24-2023 Tobacco smoking status NHIS Unknown if ever smoked [facility] Start: 03-08-2019 None [facility] Start: 12-01-2020 Alone [facility] Start: 03-08-2019 Cigarettes [facility] Start: 02-28-2022 End: 03-13-2023 Tobacco use panel [facility] Adult Depression Screening Assessment 5 [facility] Sexual Orientation [facility] Start: 01-07-2019 End: 09-27-2024 Sex Female (finding) [facility] Medical Equipment Procedure Code Equipment Code Equipment Origin al Text Equipment Identifier Dates Replacement of battery of baclofen pump SYNCHROMED PAIN PUMP FDA Start: 02-07-2024 Test Blood sugar 3x daily. 250.02, insulin dep [id number] Start: 11-17-2009 Comment on above: Test Blood [...] Result Facility 04-28-2022 Functional Status Moderate assistance [facility] 12-01-2021 Functional Status [facility] Mental Status Date Assessment Result Facility 11-24-2023 Cognitive function Level Of Cons ciousness Awake;Alert;Appropriate;Follow s Commands [facility] Work Phone: 10-17-2022 Mental Status Orientation Oriented x 4 [facility] 10-17-2022 Mental Status [facility] 12-01-2021 Mental Status [facility] Clinical Notes 02-04-2008 to 09-27-2024 Telephone Encounter - Sandra Dunn - 07/16/2024 9:43 AM ESTTelephone Encounter - Sandra Dunn - 07/16/2024 9:43 AM ESTTelephone Encounter - Kimmie-Valeria Ellsworth MA - 03/23/2024 11:30 AM EDT Note Date & Type Note Facility 09-27-2024 Radiology Diagnostic study note [facility] Imaging Services [address] [place] [address] Abdomen/Pelvis without Cont MR#: [id number] Acct: [id number] Name: JULIANA MERIDA Rep #: [id number] : 1960 F 63 From: Kimo Loaiza MD PCP: Mariah Guevara MD Status: REG ER Study:Abdomen/Pelvis without Cont Date of Exa m: 09/27/24 Exam# [id number] Ordering Dr: Graham Cochran DO PROCEDURE: ABDOMEN/PELVIS [...] abdominal and pelvic viscera. There is now majg-yoletay-vfwd-right mild basilar patchy ill-defined ground-glass opacities of [...] dilation or free air. Status post appendectomy. [place] artifact from spinal stimulator device. Aortoiliac atherosclerotic calcification. No abdominal aortic aneurysm. The bladder appears within limits. No free fluid seen. Status post hysterectomy. The ovaries appear within limits on noncontrast imaging. [place] artifact from left femoral gamma nail. Small fat containing left inguinalhernia without stranding again noted. CT/Abdomen/Pelvis without Cont IMPRESSION: There is now xask-dwzzvll-wkqz-right mild basilar patchy ill-defined ground-glass opacities of [...] the liver. Status post cholecystectomy. Reading Location: [id number] CC: Mariah Guevara MD; Dr. Gregorio Cochran DO ~ Mixer Blender: Signed [facility] 07-16-2024 Telephone encounter Note Marlene Lagunas Approved [id number] [facility] Medicare/Portal 07.15.24-07.15.25 2 visits Sandra Corado Legal Editor [facility] 07-16-2024 Miscellaneous Notes Marlene Lagunas Approved [id number] [facility] Medicare/Portal 07.15.24-07.15.25 2 visits Sandra Corado Legal Editor documented in this encounter [facility] 03-23-2024 Telephone encounter Note Patient was a no show for her appointment today. I called the facility and left a voice mail with the phone number for a call back to get rescheduled. I also sent Ramandeep in Toshia Presley's office a bubble chat message letting them know patient was a no show today!! [facility] 03-23-2024 Miscellaneous Notes Patient was a no show for her appointment today. I called the facility and left a voice mail with the phone number for a call back to get rescheduled. I also sent Ramandeep in Toshia Presley's office a bubble chat message letting them know patient was a no show today!! documented in this encounter [facility] 03-23-2024 Telephone encounter Note error [facility] 03-23-2024 Miscellaneous Notes error documented in this encounter [facility] 11-24-2023 Discharge summary Note Date/Time November 24, 2023 5:05p m [facility] Medical Records Department [address] [place] [address] Emergency Department Summary 11/24/23 MR#: [id number] Acct: [id number] Name: JULIANA MERIDA YANELI Rep #:[id number] : 1960 63 From: Dino Pena MD PCP: Bianca Palomares MD Status:REG ER Location: ED HPI History of Present Illness Chief Complaint: Edema Informant: patient Narrative Narrative: 63-year-old patient in a ch[facility] presenting with multiple complaints on herown behalf. [...] no orthopnea no new cough or fevers. [facility] Medical History Anxiety Cerebral vascular disease Chronic [...] mg rectal suppository (Dulcolax (bisacodyl)) 10 mg ND Q8H PRN 12/18/22 [History Last Taken Unknown] [...] % (Auto) 69.2 Lymph % (Auto) 20.5 [place] % (Auto) 8.4 Eos % (Auto) 0.6 [...] Clarity Clear Urine pH 7.0 Ur Specific [place] 1.010 Urine Protein Negative Urine Glucose (UA) [...] [Dulcolax (bisacodyl)] 10 mg suppository 10 mg ND Q8H PRN epinephrine [EpiPen] 0.3 mg/0.3 mL [...] Dr. Newman different dosing desired. Disposition Disposition: Retirement Facility What to do if you have Problems For any increased pain, shortness of breath, bleeding, nausea or vomiting, chestpain, or any unexpected problems, contact your Primary Care Provider. Call [facility] ([phone]) or report to the closest Emergency Room. Call 911 if necessary. 11/24/232013 <Electronically signed by Dino Pena MD> Cosigner Signature (if applicable): CC: Bianca Palomares MD ~ Signed [facility] Work Phone: 1(959) 234-557004-25-2024 Progress note Author Karthikeyan Grove [facility] November 07, 2023 12:35pm Note Date/Time November 07, 2023 12: 35pm [facility] [address] [place] [address] Progress Note - Wound Care 11/07/23 1224 MR#: [id number] Acct: [id number] Name: JULIANA MERIDA Rep #:[id number] : 1960 63 From: Karthikeyan tavares DPM PCP: Bianca Palomarse MD Status:REG RCR Location: History of Present [...] service Follow-up Visit Follow-up Visit Follow-up Visit (Physician/APPLE TURNER (Physician/APPLE TURNER (Physician/APPLE TURNER ) ) ) Arrival Mode Wheelchair Wheelchair [...] Visit Information Type of service Follow-up Visit (Physician/APPLE TURNER ) Arrival Mode Wheelchair Transfer Assistance None [...] Under -Granulation Amt Medium (34-66%) -Granulation Quality [place] -Slough/Fibrin Yes -Necrosis Amt Large (67-100%) -Necrotic [...] Recorded Date Recorded By Document 10/17/23 10:13 [facility] Desktop 10/17/23 10:37 [facility] Document 10/24/23 10:01 [facility] Desktop 10/24/23 10:15 [facility] Document 10/31/23 09:59 [facility] Desktop 10/31/23 10:10 [facility] Document 11/07/23 10:10 [facility] Desktop 11/07/23 10:27 [employer] 10/17/23 10/24/23 10/31/23 10:13 10:01 09:59 Wound [...] 10:51 Desktop 10/17/23 10:52 Document 10/24/23 10:22 [facility] Desktop 10/24/23 10:23 [facility] Document 10/31/23 11:54 DL [id number] 10/31/23 11:56 DL Document 11/07/23 10:31 KW [...] Summary of Care Provided Yes Facility Type Senior Living Care Emergency Spill Response Technician Care Facility Facility Orders Sent Yes 11/07/23 [...] disease, next appointment 11/20/23. Pain: May take cxta-lwr-liydnsi Tylenol for discomfort Host factors: DM type II with peripheral polyneuropathy, MRSA positive cultures,edema, chronic tobacco abuse. I answered all the patient's questions. To return to the wound healing center in 1 week or call sooner if the patient has any questions or concerns. 11/07/23 1235 <Electronically signed by Karthikeyan Grove DPM> Cosigner Signature (if applicable): CC: ~ Signed [facility] Work Phone: 1(648) 306-774704-18-2024 Progress note Author Karthikeyan Grove [facility] October 31, 2023 12:37pm Note Date/Time October 31, 2023 12: 26pm [facility] [address] [place] [address] Progress Note - Wound Care 10/31/23 1222 MR#: [id number] Acct: [id number] Name: JULIANA MERIDA Rep #:[id number] : 1960 63 From: Karthikeyan tavares DPM [...] service Follow-up Visit Follow-up Visit Follow-up Visit (Physician/APPLE TURNER (Physician/APPLE TURNER (Physician/APPLE TURNER ) ) ) Arrival Mode Wheelchair Wheelchair [...] (Pt Warm) (Pt Warm) -Tenderness on Palpation (Olri-wound No No Skin Appearance) -Ulcer Cleansing Rinsed/ [...] Recorded Date Recorded By Document 10/17/23 10:13 [facility] 10/17/23 10:37 [facility] Document 10/24/23 10:01 [facility] 10/24/23 10:15 [facility] Document 10/31/23 09:59 [employer] Desktop 10/31/23 10:10 [employer] 10/17/23 10/24/23 10/31/23 10:13 10:01 09:59 Wound [...] Desktop 10/17/23 10:52 GM Document 10/24/23 10:22 [facility] Desktop 10/24/23 10:23 [facility] Document 10/31/23 11:54 DL [id number] 10/31/23 11:56 DL 10/17/23 10/24/23 10/31/23 10:51 [...] Summary of Care Provided Yes Facility Type Senior Living Care Senior Living Care Facility Facility Orders Sent Yes Assessment/Plan [...] disease, next appointment 11/20/23. Pain: May take wnus-odf-lbdogsc Tylenol for discomfort Host factors: DM type II with peripheral polyneuropathy, MRSA positive cultures,edema, chronic tobacco abuse. I answered all the patient's questions. To return to the wound healing center in 1 week or call sooner if the patient has any questions or concerns. 10/31/23 1237 <Electronically signed by Karthikeyan Grove DPM> Cosigner Signature (if applicable): CC: ~ Signed [facility] Work Phone: 1(609) 667-693404-11-2024 Progress note Author Karthikeyan Grove [facility] October 24, 2023 11:03am Note Date/Time October 24, 2023 10: 01am [facility] [address] [facility] [place] [address] Progress Note - Wound Care 10/24/23 1000 MR#: [id number] Acct: [id number] Name: JULIANA MERIDA Rep #:[id number] : 1960 63 From: Karthikeyan tavares DPM [...] Type of service Follow-up Visit Follow-up Visit (Physician/APPLE TURNER (Physician/APPLE TURNER ) ) Arrival Mode Wheelchair Wheelchair Patient [...] Recorded Date Recorded By Document 10/17/23 10:13 [facility] Desktop 10/17/23 10:37 [facility] 10/17/23 10:13 Wound Center Nurse 2 [...] referral to infectious disease. Pain: May take zzej-wbo-fzaerpk Tylenol for discomfort Host factors: DM type II with peripheral polyneuropathy, MRSA positive cultures,edema, chronic tobacco abuse. I answered all the patient's questions. To return to the wound healing center in 1 week or call sooner if the patient has any questions or concerns. 10/24/23 1103 <Electronically signed by Karthikeyan Grove DPM> Cosigner Signature (if applicable): CC: ~ Signed [facility] Work Phone: 1(400) 941-694604-04-2024 Progress note Author Karthikeyan Grove [facility] October 17, 2023 7:55pm Note Date/Time October 17, 2023 10:4 2am [facility] [address] [place] [address] Progress Note - Wound Care 10/17/23 1038 MR#: [id number] Acct: [id number] Name: JULIANA MERIDA Rep #:[id number] : 1960 63 From: Karthikeyan tavares DPM [...] Recorded Date Recorded By Document 10/17/23 09:32 [facility] Desktop 10/17/23 09:40 DC 10/17/23 09:32 - Today's Visit Information Type of service Follow-up Visit (Physician/APPLE TURNER ) Arrival Mode Wheelchair Patient Identification Verified [...] Recorded Date Recorded By Document 10/17/23 09:32 DC IDbyMEop 10/17/23 09:40 DC 10/17/23 09:32 Wound Center Nurse 1 #1 [...] Recorded Date Recorded By Document 10/17/23 10:13 [facility] Desktop 10/17/23 10:37 [facility] 10/17/23 10:13 Wound Center Nurse 2 [...] referral to infectious disease. Pain: May take lwnk-wpx-leenzth Tylenol for discomfort Host factors: DM type II with peripheral polyneuropathy, MRSA positive cultures,edema, chronic tobacco abuse. I answered all the patient's questions. To return to the wound healing center in 1 week or call sooner if the patient has any questions or concerns. 10/17/231954 <Electronically signed by Karthikeyan Grove DPM> Cosigner Signature (if applicable): CC: ~ Signed [facility] Work Phone: 1(812) 457-521203-28-2024 Progress note Author Karthikeyan Grove [facility] October 10, 2023 6:59pm Note Date/Time October 10, 2023 10: 34am [facility] [address] [place] [address] Progress Note - Wound Care 10/10/23 1031 MR#: [id number] Acct: [id number] Name: JULIANA MERIDA Rep #:[id number] : 1960 63 From: Karthikeyan tavares DPM [...] service Follow-up Visit Follow-up Visit Follow-up Visit (Physician/APPLE TURNER (Physician/APPLE TURNER (Physician/APPLE TURNER ) ) ) Arrival Mode Wheelchair Wheelchair [...] Visit Information Type of service Follow-up Visit (Physician/APPLE TURNER ) Arrival Mode Wheelchair Transfer Assistance None [...] (34-66%) Medium (34-66%) Small (1-33%) -Granulation Quality Cannon Ball Cannon Ball [place] -Slough/Fibrin Yes Yes -Necrosis Amt Medium (34-66%) [...] 10:37 Desktop 09/26/23 10:39 Document 10/03/23 10:18 [facility] Desktop 10/03/23 10:30 [facility] 09/19/23 09/26/23 10/03/23 09:53 10:37 10:18 [...] 09/26/23 11:14 RB Document 10/03/23 11:49 DL [id number] 10/03/23 11:50 DL 09/19/23 09/26/23 10/03/23 10:17 [...] hospital for xray as ordered Facility Type Senior Living Care Facility Orders Sent Yes Assessment/Plan Assessment/Plan [...] Recommended referral to infectiousdisease. Pain: May take uqbx-idj-mojjjae Tylenol for discomfort Host factors: DM type II with peripheral polyneuropathy, MRSA positive cultures,edema, chronic tobacco abuse. I answered all the patient's questions. To return to the wound healing center in 1 week or call sooner if the patient has any questions or concerns. 10/10/231858 <Electronically signed by Karthikeyan Grove DPM> Cosigner Signature (if applicable): CC: ~ Signed [facility] Work Phone: 1(965) 330-597803-21-2024 History and physical note Author Karthikeyan Grove [facility] October 03, 2023 1:23pm Note Date/Time October 03, 2023 10: 09am [facility] [address] [place] [address] H&P Exam - Wound Care 10/03/23 1008 MR#: [id number] Acct: [id number] Name: JULIANA MERIDA Rep #:[id number] : 1960 62 From: Karthikeyan tavares DPM [...] fever or otherwise feeling of unwell reported. [facility] Medical History Anxiety Cerebral vascular disease [...] mg rectal suppository (Dulcolax (bisacodyl)) 10 mg ND Q8H PRN 12/18/22 [History Last Taken Unknown] [...] Recorded Date Recorded By Document 09/19/23 09:30 [employer] 09/19/23 09:32 RB Document 09/26/23 10:12 RB Desktop 09/26/23 10:15 RB Document 10/03/23 09:41 Desktop 10/03/23 09:51 09/19/23 09/26/23 10/03/23 09:30 10:12 09:41 - Today's Visit Information Type of service Follow-up Visit Follow-up Visit Follow-up Visit (Physician/APPLE TURNER (Physician/APPLE TURNER (Physician/APPLE TURNER ) ) ) Arrival Mode Wheelchair Wheelchair [...] Date Recorded By Document 09/19/23 09:30 RB [employer] 09/19/23 09:32 RB Document 09/26/23 10:12 RB [...] (34-66%) Medium (34-66%) Small (1-33%) -Granulation Quality Cannon Ball Cannon Ball Cannon Ball -Slough/Fibrin Yes Yes -Necrosis Amt Medium (34-66%) [...] Recommended referral to infectiousdisease. Pain: May take [id number]-fpmnavl Tylenol for discomfort Host factors: DM type II with peripheral polyneuropathy, MRSA positive cultures,edema, chronic tobacco abuse. I answered all the patient's questions. To return to the wound healing center in 1 week or call sooner if the patient has any questions or concerns. 10/03/23 1323 <Electronically signed by Karthikeyan Grove DPM> Cosigner Signature (if applicable): CC: ~ Signed [facility] Work Phone: [phone]) 455-373503-14-2024 Progress note Author Chilango Laughlin [facility] September 26, 2023 2:01pm Note Date/Time September 26, 2023 12: 14pm [facility] [address] [place] [address] Progress Note - Wound Care 09/26/23 1209 MR#: [id number] Acct: [id number] Name: JULIANA MERIDA Rep #:[id number] : 1960 62 From: Chilango joy MD [...] 11:34 09/26/23 11:34 Charges/Coding Procedures Integumentary 111xxx-113xx: 92127 Carla subq tissue 20 sq cm/< Physical [...] Type of service Follow-up Visit Follow-up Visit (Physician/APPLE TURNER (Physician/APPLE TURNER ) ) Arrival Mode Wheelchair Wheelchair Transfer [...] Amt Medium (34-66%) Medium (34-66%) -Granulation Quality Cannon Ball Cannon Ball -Slough/Fibrin Yes Yes -Necrosis Amt Medium (34-66%) [...] 1 week. This note was generated with K Spineation software. It may contain incorrectwords, spelling, and punctuation that were not noted in checking the note beforesigning. 09/26/23 1401 <Electronically signed by Chilango Laughlin MD> Cosigner Signature (if applicable): CC: ~ Signed [facility] Work Phone: 1(416) 324-840403-07-2024 Progress note Author Chilango Laughlin [facility] September 19, 2023 10:17am Note Date/Time September 19, 2023 10:[address] [facility] [address] [place] [address] Progress Note - Wound Care 09/19/23 1005 MR#: [id number] Acct: [id number] Name: JULIANA MERIDA Rep #:[id number] : 1960 62 From: Chilango joy MD [...] 09:30 09/19/23 09:30 Charges/Coding Procedures Integumentary 111xxx-113xx: 37252 Carla subq tissue 20 sq cm/< Physical [...] Visit Information Type of service Follow-up Visit (Physician/APPLE TURNER ) Arrival Mode Wheelchair Transfer Assistance None [...] Under -Granulation Amt Medium (34-66%) -Granulation Quality Cannon Ball -Slough/Fibrin Yes -Necrosis Amt Medium (34-66%) -Necrotic [...] 1 week. This note was generated with [employer] dictation software. It may contain incorrectwords, spelling, and punctuation that were not noted in checking the note beforesigning. 09/19/23 1017 <Electronically signed by Chilango Laughlin MD> Cosigner Signature (if applicable): CC: ~ Signed [facility] Work Phone: 1([phone]) 197-286703-05-2024 Miscellaneous Notes* Telephone Encounter - Funmilayo Pope MD - 09/17/2023 2:59 PM EST Needs [facility] Progress note Author Chilango Laughlin [facility] September 05, 2023 12:52pm Note Date/Time September 05, 2023 10:04am [facility] [address] [place] [address] Progress Note - Wound Care 09/05/23 0958 MR#: [id number] Acct: [id number] Name: JULIANA MERIDA Rep #:[id number] : 1960 62 From: Chilango joy MD [...] anaerobic bacteria isolated. Charges/Coding Procedures Integumentary 111xxx-113xx: 57824 Carla subq tissue 20 sq cm/< Physical [...] service Follow-up Visit Follow-up Visit Follow-up Visit (Physician/APPLE TURNER (Physician/APPLE TURNER (Physician/APPLE TURNER ) ) ) Arrival Mode Wheelchair Wheelchair [...] Visit Information Type of service Follow-up Visit (Physician/APPLE TURNER ) Arrival Mode Wheelchair Transfer Assistance None [...] Small (1-33%) Medium (34-66%) -Granulation Quality Red Cannon Ball Cannon Ball -Slough/Fibrin Yes Yes -Necrosis Amt Medium (34-66%) [...] Attached -Granulation Amt Medium (34-66%) -Granulation Quality Cannon Ball -Slough/Fibrin Yes -Necrosis Amt Medium (34-66%) -Necrotic [...] 1 week. This note was generated with [employer] dictation software. It may contain incorrectwords, spelling, and punctuation that were not noted in checking the note beforesigning. 09/05/23 1252 <Electronically signed by Chilango Laughlin MD> Cosigner Signature (if applicable): CC: ~ Signed [facility] Work Phone: 1(332) 527-875602-16-2024 Progress note Author Chilango Laughlin [facility] August 30, 2023 1:48pm Note Date/Time August 29, [address] [facility] [address] [place] [address] Progress Note - Wound Care 08/29/23 1008 MR#: [id number] Acct: [id number] Name: JULIANA MERIDA YANELI Rep #:[id number] : 1960 62 From: Chilango joy MD [...] anaerobic bacteria isolated. Charges/Coding Procedures Integumentary 111xxx-113xx: 84541 Carla subq tissue 20 sq cm/< Physical [...] service Follow-up Visit Follow-up Visit Follow-up Visit (Physician/APPLE TURNER (Physician/APPLE TURNER (Physician/APPLE TURNER ) ) ) Arrival Mode Wheelchair Wheelchair [...] Desktop 08/22/23 08:59 DL Document 08/29/23 09:30 [employer] Desktop 08/29/23 09:34 BMF 08/15/23 08/22/23 08/29/23 [...] Small (1-33%) Medium (34-66%) -Granulation Quality Red Cannon Ball Cannon Ball -Slough/Fibrin Yes Yes -Necrosis Amt Medium (34-66%) [...] Recorded Date Recorded By Document 08/15/23 09:25 [employer] 08/15/23 09:31 GM Document 08/22/23 09:14 [employer] Desktop 08/22/23 09:28 GM Document 08/29/23 09:47 [employer] Desktop 08/29/23 09:49 GM 08/15/23 08/22/23 08/29/23 [...] 1 week. This note was generated with [employer] dictation software. It may contain incorrectwords, spelling, and punctuation that were not noted in checking the note beforesigning. 08/30/23 1348 <Electronically signed by Chilango Laughlin MD> Cosigner Signature (if applicable): CC: ~ Signed [facility] Work Phone: [phone]) 365-840102-08-2024 Progress note Author Chilango Laughlin [facility] August 22, 2023 9:39am Note Date/Time August 22, 2023 9 :33am [facility] [address] [place] [address] Progress Note - Wound Care 08/22/2328 MR#: [id number] Acct: [id number] Name: JULIANA MERIDA YANELI Rep #:[id number] : 1960 62 From: Chilango joy MD [...] Method Room Air Charges/Coding Procedures Integumentary 111xxx-113xx: 03356 Carla subq tissue 20 sq cm/< Physical [...] Type of service Follow-up Visit Follow-up Visit (Physician/APPLE TURNER (Physician/APPLE TURNER ) ) Arrival Mode Wheelchair Wheelchair Transfer [...] Medium (34-66%) Small (1-33%) -Granulation Quality Red Cannon Ball -Slough/Fibrin Yes -Necrosis Amt Medium (34-66%) Small [...] Recorded Date Recorded By Document 08/15/23 09:34 [facility] 08/15/23 09:36 08/15/23 09:34 Wound Care Center [...] 1 week. This note was generated with [employer] dictation software. It may contain incorrectwords, spelling, and punctuation that were not noted in checking the note beforesigning. 08/22/23 0939 <Electronically signed by Chilango Laughlin MD> Cosigner Signature (if applicable): CC: ~ Signed [facility] Work Phone: 1([phone]) 364-800602-01-2024 Progress note Author Chilango Laughlin [facility] August 15, 2023 9:38am Note Date/Time August 15, 2023 9 :38am [facility] [address] [place] [address] Progress Note - Wound Care 08/15/23 0936 MR#: [id number] Acct: [id number] Name: JULIANA MERIDA YANELI Rep #:[id number] : 1960 62 From: Chilango joy MD [...] Method Room Air Charges/Coding Procedures Integumentary 111xxx-113xx: 49719 Carla subq tissue 20 sq cm/< Physical [...] Recorded Date Recorded By Document 08/15/23 08:53 [facility] Desktop 08/15/23 08:59 [facility] 08/15/23 08:53 - Today's Visit Information Type of service Follow-up Visit (Physician/APPLE TURNER ) Arrival Mode Wheelchair Transfer Assistance None [...] Recorded Date Recorded By Document 08/15/23 08:53 [facility] [employer] 08/15/23 08:59 [facility] 08/15/23 08:53 Wound Center Nurse 1 [...] 1 week. This note was generated with [employer] dictation software. It may contain incorrectwords, spelling, and punctuation that were not noted in checking the note beforesigning. 08/15/23937 <Electronically signed by Chilango Laughlin MD> Cosigner Signature (if applicable): CC: ~ Signed [facility] Work Phone: [phone]) 572-620101-25-2024 Progress note Author Chilango Laughlin [facility] August 08, 2023 9:32am Note Date/Time August 08, 2023 9 :26am [facility] [address] [place] [address] Progress Note - Wound Care 08/08/23919 MR#: [id number] Acct: [id number] Name: JULIANA MERIDA Rep #:[id number] : 1960 62 From: Chilango joy MD [...] anaerobic bacteria isolated. Charges/Coding Procedures Integumentary 111xxx-113xx: 25509 Carla subq tissue 20 sq cm/< Physical [...] Start: 07/18/23 08:50 Freq: Status: Active Protocol: RUYYourTime SolutionsMaria Luisa Activity Type Activity Date Activity User [...] service Follow-up Visit Follow-up Visit Follow-up Visit (Physician/APPLE TURNER (Physician/APPLE TURNER (Physician/APPLE TURNER ) ) ) Arrival Mode Wheelchair Wheelchair [...] Visit Information Type of service Follow-up Visit (Physician/APPLE TURNER ) Arrival Mode Wheelchair Transfer Assistance None [...] Document 07/18/23 08:50 BM[facility] Desktop 07/18/23 08:58 [facility] Document 07/25/23 08:49 BM Desktop 07/25/23 08:56 [facility] Document 08/01/23 08:39 BMF Desktop 08/01/23 08:49 [facility] Document 08/08/23 09:02 DL Desktop 08/08/23 [...] Thickened -Granulation Amt Small (1-33%) -Granulation Quality Pale,Cannon Ball -Slough/Fibrin -Necrosis Amt Small (1-33%) -Necrotic Tissue [...] BMF Edit Result 08/01/23 09:52 BMF (1) [id number] 08/01/23 14:12 GM (1) #1 R Lat [...] 09:22 Desktop 07/25/23 09:23 Document 08/01/23 10:06 [facility] Desktop 08/01/23 10:07 [facility] 07/18/23 07/25/23 08/01/23 09:48 09:22 10:06 [...] of Care Provided Yes Yes Facility Type Emergency Spill Response Technician Care Facility Assessment/Plan Assessment/Plan (1) Chronic ulcer [...] 1 week. This note was generated with [employer] dictation software. It may contain incorrectwords, spelling, and punctuation that were not noted in checking the note beforesigning. 08/08/23 0932 <Electronically signed by Chilango Laughlin MD> Cosigner Signature (if applicable): CC: ~ Signed [facility] Work Phone: 1(575) 161-228201-18-2024 Progress note Author Efewongbe Oleghe [facility] August 01, 2023 6:49pm Note Date/Time August 01, 2023 1 0:52am [facility] [address] [place] [address] Progress Note - Wound Care 08/01/23 1048 MR#: [id number] Acct: [id number] Name: JULIANA MERIDA Rep #:[id number] : 1960 62 From: Chilango joy MD [...] anaerobic bacteria isolated. Charges/Coding Procedures Integumentary 111xxx-113xx: 25574 Carla subq tissue 20 sq cm/< Physical [...] Recorded Date Recorded By Document 07/18/23 08:50 [facility] 07/18/23 08:58 [facility] Document 07/25/23 08:49 [employer] 07/25/23 08:56 [facility] Document 08/01/23 08:39 [facility] Desktop 08/01/23 08:49 [employer]. 07/18/23 07/25/23 08/01/23 08:50 08:49 08:39 - Today's Visit Information Type of service Follow-up Visit Follow-up Visit Follow-up Visit (Physician/APPLE TURNER (Physician/APPLE TURNER (Physician/APPLE TURNER ) ) ) Arrival Mode Wheelchair Wheelchair [...] Recorded Date Recorded By Document 07/18/23 08:50 [facility] Desktop 07/18/23 08:58 [employer] Document 07/25/23 08:49 [facility] Desktop 07/25/23 08:56 [facility] Document 08/01/23 08:39 [facility] Desktop 08/01/23 08:49 [employer] 07/18/23 07/25/23 08/01/23 08:50 08:49 08:39 Wound [...] 09:05 Desktop 07/25/23 09:11 Document 08/01/23 09:52 [facility] Desktop 08/01/23 09:57 [facility] 07/18/23 07/25/23 08/01/23 09:32 09:05 09:52 [...] 09:22 Desktop 07/25/23 09:23 Document 08/01/23 10:06 [facility] Desktop 08/01/23 10:07 [facility] 07/18/23 07/25/23 08/01/23 09:48 09:22 10:06 [...] of Care Provided Yes Yes Facility Type Senior Living Care Facility Assessment/Plan Assessment/Plan (1) Chronic ulcer [...] 1 week. This note was generated with [employer] dictation software. It may contain incorrectwords, spelling, and punctuation that were not noted in checking the note beforesigning. 08/01/23 6229 <Electronically signed by Chilango Laughlin MD> Cosigner Signature (if applicable): CC: ~ Signed [facility] Work Phone: [phone] 396-665201-11-2024 Progress note Author Chilango Laughlin [facility] July 25, 2023 10:31am Note Date/Time July 25, 2023 1 0:31am [facility] [address] [place] [address] Progress Note - Wound Care 07/25/23 1028 MR#: [id number] Acct: [id number] Name: JULIANA MERIDA Rep #:[id number] : 1960 62 From: Chilango joy MD [...] anaerobic bacteria isolated. Charges/Coding Procedures Integumentary 111xxx-113xx: 68474 Carla subq tissue 20 sq cm/< Physical [...] Post-Debridement Measurements and Additional Note: Post-Debridement Measurements/Treatment [facility] Nurse 1 - General Ulcer Assessment Start: 07/18/23 08:50 Freq: Status: Active Protocol: CLOVIS Activity Type Activity Date Activity User E-sign Co-sign Detail Recorded Client Recorded Date Recorded By Document 07/18/23 08:50 [facility] Desktop 07/18/23 08:58 [facility] Document 07/25/23 08:49 [facility] Desktop 07/25/23 08:56 [facility] 07/18/23 07/25/23 08:50 08:49 - Today's Visit Information Type of service Follow-up Visit Follow-up Visit (Physician/APPLE TURNER (Physician/APPLE TURNER ) ) Arrival Mode Wheelchair Wheelchair Transfer [...] Desktop 07/18/23 08:58 [facility] Document 07/25/23 08:49 [employer] Desktop 07/25/23 08:56 BMF 07/18/23 07/25/23 08:50 [...] 1 week. This note was generated with [employer] dictation software. It may contain incorrectwords, spelling, and punctuation that were not noted in checking the note beforesigning. 07/25/23 1031 <Electronically signed by Chilango Laughlin MD> Cosigner Signature (if applicable): CC: ~ Signed [facility] Work Phone: [phone] 267-453812-28-2023 Progress note Author Chilango Laughlin [facility] July 11, 2023 9:25am Note Date/Time July 11, 2023 9:21am [facility] [address] [place] [address] Progress Note - Wound Care 07/11/23 0919 MR#: [id number] Acct: [id number] Name: JULIANA MERIDA Rep #:[id number] : 1960 62 From: Chilango joy MD [...] Method Room Air Charges/Coding Procedures Integumentary 111xxx-113xx: 90567 Carla subq tissue 20 sq cm/< Physical [...] Type of service Nurse-only Follow-up Visit Visit (Physician/APPLE TURNER ) Arrival Mode Wheelchair Wheelchair Transfer Assistance [...] Amt Large (67-100%) Small (1-33%) -Granulation Quality Cannon Ball Cannon Ball -Slough/Fibrin Yes -Necrosis Amt Small (1-33%) Medium [...] painful last covid. current few days to [facility] she's touch wearing is dated for 06/21. [facility] has not changed it since then and [...] BMF Edit Result 07/04/23 08:52 BMF (1) [id number] 07/05/23 06:38 PL (1) Left - Multi-Layered [...] 1 week. This note was generated with [employer] dictation software. It may contain incorrectwords, spelling, and punctuation that were not noted in checking the note beforesigning. 07/11/23 0925 <Electronically signed by Chilango Laughlin MD> Cosigner Signature (if applicable): CC: ~ Signed [facility] Work Phone: [phone]) 975-741411-30-2023 Progress note Author Chilango Laughlin [facility] June 13, 2023 10:53am Note Date/Time June 13, 2023 10:53am [facility] [address] [place] [address] Progress Note - Wound Care 06/13/23 1048 MR#: [id number] Acct: [id number] Name: JULIANA MERIDA Rep #:[id number] : 1960 62 From: Chilango joy MD [...] Method Room Air Charges/Coding Procedures Integumentary 111xxx-113xx: 66816 Carla subq tissue 20 sq cm/< Physical [...] service Follow-up Visit Follow-up Visit Follow-up Visit (Physician/APPLE TURNER (Physician/APPLE TURNER (Physician/APPLE TURNER ) ) ) Arrival Mode Wheelchair Wheelchair [...] Visit Information Type of service Follow-up Visit (Physician/APPLE TURNER ) Arrival Mode Wheelchair Transfer Assistance None [...] 09:08 Laptop 05/16/23 09:15 Document 05/23/23 09:50 [facility] Desktop 05/23/23 09:56 [facility] Document 05/30/23 09:16 DL Desktop 05/30/23 09:30 DL Document 06/13/23 09:52 [facility] Desktop 06/13/23 09:57 [facility] 05/16/23 05/23/23 05/30/23 09:08 09:50 09:16 [...] (67-100%) Small (1-33%) -Granulation Quality Red Red Cannon Ball -Slough/Fibrin Yes No -Necrosis Amt Small (1-33%) [...] BMF Edit Result 05/23/23 10:36 F (1) [id number] 05/23/23 11:07 BMF Document 05/30/23 10:04 DL [...] Summary of Care Provided Yes Facility Type Emergency Spill Response Technician Care Facility 06/13/23 10:21 Wound Care Center [...] Clinical Summary of Care Provided Facility Type Senior Living Care Facility Assessment/Plan Assessment/Plan (1) Chronic ulcer [...] 2 weeks. This note was generated with [employer] software. It may contain incorrectwords, spelling, and punctuation that were not noted in checking the note beforesigning. 06/13/23 1053 <Electronically signed by Chilango Laughlin MD> Cosigner Signature (if applicable): CC: ~ Signed [facility] Work Phone: [phone]) 718-625511-16-2023 Progress note Author Chilango Laughlin [facility] May 30, 2023 10:15am Note Date/Time May 30, 2023 10:15am [facility] [address] [place] [address] Progress Note - Wound Care 05/30/23 1013 MR#: [id number] Acct: [id number] Name: JULIANA MERIDA YANELI Rep #:[id number] : 1960 62 From: Chilango joy MD [...] Method Room Air Charges/Coding Procedures Integumentary 111xxx-113xx: 29344 Carla subq tissue 20 sq cm/< Physical [...] service Follow-up Visit Follow-up Visit Follow-up Visit (Physician/APPLE TURNER (Physician/APPLE TURNER (Physician/APPLE TURNER ) ) ) Arrival Mode Wheelchair Wheelchair [...] (67-100%) Small (1-33%) -Granulation Quality Red Red Cannon Ball -Slough/Fibrin Yes No -Necrosis Amt Small (1-33%) [...] BMF Edit Result 05/23/23 10:36 BMF (1) [id number] 05/23/23 11:07 BMF Document 05/30/23 10:04 DL [...] Stable Stable Ambulatory Status Wheelchair Wheelchair Transportation [facility] Medication Reconcilliation completed & No provided to patient/care provider Clinical Summary of Care Provided Yes Facility Type Emergency Spill Response Technician Care Facility Assessment/Plan Assessment/Plan (1) Chronic ulcer [...] the holiday. This note was generated with [employer] software. It may contain incorrectwords, spelling, and punctuation that were not noted in checking the note beforesigning. 05/30/23 1015 <Electronically signed by Chilango Laughlin MD> Cosigner Signature (if applicable): CC: ~ Signed [facility] Work Phone: [phone]) 698-456111-09-2023 Progress note Author Chilango Laughlin [facility] May 23, 2023 10:23am Note Date/Time May 23, 2023 1 0:23am [facility] [address] [place] [address] Progress Note - Wound Care 05/23/23 1021 MR#: [id number] Acct: [id number] Name: JULIANA MERIDA YANELI Rep #:[id number] : 1960 62 From: Chilango joy MD [...] Method Room Air Charges/Coding Procedures Integumentary 111xxx-113xx: 54874 Carla subq tissue 20 sq cm/< Physical [...] 09:08 Laptop 05/16/23 09:15 Document 05/23/23 09:50 [facility] Desktop 05/23/23 09:56 [facility] 05/16/23 05/23/23 09:08 09:50 - Today's Visit Information Type of service Follow-up Visit Follow-up Visit (Physician/APPLE TURNER (Physician/APPLE TURNER ) ) Arrival Mode Wheelchair Wheelchair Transfer [...] 09:08 Laptop 05/16/23 09:15 Document 05/23/23 09:50 [facility] Desktop 05/23/23 09:56 [facility] 05/16/23 05/23/23 09:08 09:50 Wound Center [...] Condition Stable Ambulatory Status Wheelchair Transportation maryjo-ann yu Medication Reconcilliation completed & No provided to [...] 1 week. This note was generated with [employer] dictation software. It may contain incorrectwords, spelling, and punctuation that were not noted in checking the note beforesigning. 05/23/23 1023 <Electronically signed by Chilango Laughlin MD> Cosigner Signature (if applicable): CC: ~ Signed [facility] Work Phone: 1([phone]) 606-953611-02-2023 Progress note Author Chilango Laughlin [facility] May 16, 2023 9:37am Note Date/Time May 16, 2023 9 :38am [facility] [address] [place] [address] Progress Note - Wound Care 05/16/23929 MR#: [id number] Acct: [id number] Name: JULIANA MERIDA Rep #:[id number] : 1960 62 From: Chilango joy MD [...] 09:08 05/16/23 09:08 Charges/Coding Procedures Integumentary 111xxx-113xx: 67159 Carla subq tissue 20 sq cm/< Physical [...] Visit Information Type of service Follow-up Visit (Physician/APPLE TURNER ) Arrival Mode Wheelchair Patient Identification Verified [...] 1 week. This note was generated with [employer] dictation software. It may contain incorrectwords, spelling, and punctuation that were not noted in checking the note beforesigning. 05/16/23 0937 <Electronically signed by Chilango Laughlin MD> Cosigner Signature (if applicable): CC: ~ Signed [facility] Work Phone: [phone] 361-148710-19-2023 Progress note Author Chilango Laughlin [facility] May 02, 2023 10:11am Note Date/Time May 02, 2023 1 0:11am [facility] [address] [place] [address] Progress Note - Wound Care 05/02/23 1007 MR#: [id number] Acct: [id number] Name: JULIANA MERIDA YANELI Rep #:[id number] : 1960 62 From: Chilango joy MD [...] Method Room Air Charges/Coding Procedures Integumentary 111xxx-113xx: 65418 Carla subq tissue 20 sq cm/< Physical [...] service Follow-up Visit Follow-up Visit Follow-up Visit (Physician/APPLE TURNER (Physician/APPLE TURNER (Physician/APPLE TURNER ) ) ) Arrival Mode Wheelchair Wheelchair [...] (1-33%) None Present (0 %) -Granulation Quality Cannon Ball Red -Slough/Fibrin Yes Yes Yes -Necrosis Amt [...] 09:50 Laptop 04/18/23 09:50 Document 04/25/23 09:41 [facility] Desktop 04/25/23 09:42 [facility] Document 05/02/23 09:44 [employer] Desktop 05/02/23 09:45 [facility] 04/18/23 04/25/23 05/02/23 09:50 09:41 09:44 [...] Wheelchair Transportation [employer] Accompanied by [facility] transport Medication Reconcilliation completed & Yes provided to patient/care provider Clinical Summary of Care Provided Yes Facility Type Emergency Spill Response Technician Care Emergency Spill Response Technician Care Facility Facility Assessment/Plan Assessment/Plan (1) Chronic [...] 2 weeks. This note was generated with [employer] dictation software. It may contain incorrectwords, spelling, and punctuation that were not noted in checking the note beforesigning. 05/02/23 1011 <Electronically signed by Chilango Laughlin MD> Cosigner Signature (if applicable): CC: ~ Signed [facility] Work Phone: [phone]) 120-821810-12-2023 Progress note Author Chilango Laughlin [facility] April 25, 2023 1:18pm Note Date/Time April 25, 2023 1 :18pm [facility] [address] [place] [id number] Progress Note - Wound Care 04/25/23 1317 MR#: [id number] Acct: [id number] Name: JULIANA MERIDA YANELI Rep #:[id number] : 1960 62 From: Chilango joy MD [...] Method Room Air Charges/Coding Procedures Integumentary 111xxx-113xx: 77800 Carla subq tissue 20 sq cm/< Physical [...] Desktop 04/18/23 09:26 RB Document 04/25/23 08:57 [facility] Desktop 04/25/23 09:02 [facility] 04/18/23 04/25/23 09:24 08:57 - Today's Visit Information Type of service Follow-up Visit Follow-up Visit (Physician/APPLE TURNER (Physician/APPLE TURNER ) ) Arrival Mode Wheelchair Wheelchair Transfer [...] Desktop 04/18/23 09:26 RB Document 04/25/23 08:57 [facility] Desktop 04/25/23 09:02 [facility] 04/18/23 04/25/23 [...] Amt Medium (34-66%) Small (1-33%) -Granulation Quality Cannon Ball Red -Slough/Fibrin Yes Yes -Necrosis Amt Medium [...] 09:50 Laptop 04/18/23 09:50 Document 04/25/23 09:41 [facility] Desktop 04/25/23 09:42 [facility] 04/18/23 04/25/23 09:50 09:41 Wound Care [...] Wheelchair Wheelchair Transportation Private Auto Accompanied by AR transport Medication Reconcilliation completed & Yes provided to patient/care provider Clinical Summary of Care Provided Yes Facility Type Senior Living Care Facility Assessment/Plan Assessment/Plan (1) Chronic ulcer [...] 1 week. This note was generated with [employer] dictation software. It may contain incorrectwords, spelling, and punctuation that were not noted in checking the note beforesigning. 04/25/23 4896 <Electronically signed by Chilango Laughlin MD> Cosigner Signature (if applicable): CC: ~ Signed [facility] Work Phone: [phone] 390-593310-05-2023 Progress note Author Chilango Laughlin [facility] April 18, 2023 9:57am Note Date/Time April 18, 2023 9: 57am [facility] [address] [place] [address] Progress Note - Wound Care 04/18/23 0955 MR#: [id number] Acct: [id number] Name: JULIANA MERIDA Rep #:[id number] : 1960 62 From: Chilango joy MD [...] 09:24 04/18/23 09:24 Charges/Coding Procedures Integumentary 111xxx-113xx: 56891 Carla subq tissue 20 sq cm/< Physical [...] Visit Information Type of service Follow-up Visit (Physician/APPLE TURNER ) Arrival Mode Wheelchair Transfer Assistance None [...] Attached -Granulation Amt Medium (34-66%) -Granulation Quality Cannon Ball -Slough/Fibrin Yes -Necrosis Amt Medium (34-66%) -Necrotic [...] 1 week. This note was generated with [employer] software. It may contain incorrectwords, spelling, and punctuation that were not noted in checking the note beforesigning. 04/18/23 0957 <Electronically signed by Chilango Laughlin MD> Cosigner Signature (if applicable): CC: ~ Signed [facility] Work Phone: [phone]) 261-573209-12-2023 Miscellaneous Notes* Telephone Encounter - Layton Legal EditorLori - 03/26/2023 9:44 AM EDT [employer] (Janneth) APPROVED [id number] 03.26.23 - 03.26.24 for 2 visits [facility] Medicare/Portal Lori Traylor Legal Editor [facility] Miscellaneous Notes* Telephone Encounter - Gianna Grullon - 03/13/2023 2:05 PM EDT Pt was registered but upon check in system was giving error for Medicare AB- tried to run several times and error ; associate tried as well ; found that pt had possible new insurance in November through [facility]. Pt paperwork on her info sheet was same that we had scanned in August. Called [facility] they were stumped as well, sent me to the director business development who is reviewing it. She isto call me back. Pending documented in this encounterC[facility]08-23-2023 Miscellaneous Notes* Telephone Encounter - Funmilayo Pope MD - 03/06/2023 3:41 PM EDT ----- Message from Haylee Jules RN sent at 03/06/2023 9:31 AM EDT ----- Please enter new CAM order for Prolia. Current order is >1 yr old. Pt's appt Tuesday 03/13. Thanks Haylee documented in [facility] encounterC[facility]07-27-2023 Progress note Author Chilango Laughlin [facility] February 07, 2023 11:52am Note Date/Time February 07, 2023 11:[address] [facility] [address] [place] [address] Progress Note - Wound Care 02/07/23 1135 MR#: [id number] Acct: [id number] Name: JULIANA MERIDA Rep #:[id number] : 1960 62 From: Chilango joy MD [...] Method Room Air Charges/Coding Procedures Integumentary 150xxx-152xx: 56543 Skin sub graft trnk/arm/leg Physical Exam Const [...] Recorded Date Recorded By Document 01/17/23 09:59 [id number] 01/17/23 10:00 JF Document 01/24/23 09:02 KW [id number] 01/24/23 09:20 KW Document 01/31/23 08:45 RB [id number] 01/31/23 08:51 RB Document 02/07/23 09:16 RB [id number] 02/07/23 09:17 RB 01/17/23 01/24/23 01/31/23 09:59 09:02 08:45 - Today's Visit Information Type of service Follow-up Visit Follow-up Visit Follow-up Visit (Physician/APPLE TURNER (Physician/APPLE TURNER (Physician/APPLE TURNER ) ) ) Arrival Mode Wheelchair Wheelchair [...] Visit Information Type of service Follow-up Visit (Physician/APPLE TURNER ) Arrival Mode Wheelchair Transfer Assistance None [...] Date Recorded By Document 01/17/23 09:59 JF [id number] 01/17/23 10:00 JF Document 01/24/23 09:02 KW [id number] 01/24/23 09:20 KW Document 01/31/23 08:45 RB [id number] 01/31/23 08:51 RB Document 02/07/23 09:16 RB [id number] 02/07/23 09:17 RB 01/17/23 01/24/23 01/31/23 09:59 [...] Small (1-33%) Medium (34-66%) -Granulation Quality Red Cannon Ball Cannon Ball -Slough/Fibrin Yes -Necrosis Amt Medium (34-66%) Small [...] Date Recorded By Document 01/17/23 10:11 MW [id number] 01/17/23 10:20 MW Document 01/24/23 09:52 MW [id number] 01/24/23 09:54 MW Document 01/31/23 09:28 MW [id number] 01/31/23 09:36 MW Document 02/07/23 10:00 MW [id number] 02/07/23 10:08 MW 01/17/23 01/24/23 01/31/23 10:11 [...] Date 11/13/27 11/13/27 12/14/27 -Product Lot Number [id number] 002 001 -Percent Used 100 100 100 -Lot number of Saline Used [id number] -Bleeding Controlled with Pressure Pressure Pressure -Treatment [...] Disc -Expiration Date 11/13/27 -Product Lot Number [id number] -Percent Used 100 -Lot number of Saline Used [id number] -Bleeding Controlled with Pressure -Treatment Response Procedure [...] Recorded Date Recorded By Document 01/17/23 12:06 [id number] 01/17/23 12:07 Document 01/24/23 10:01 JF [id number] 01/24/23 10:02 JF Document 01/31/23 09:49 RB [id number] 01/31/23 09:50 RB Document 02/07/23 10:22 RB [id number] 02/07/23 10:23 RB 01/17/23 01/24/23 01/31/23 12:06 [...] Stable Ambulatory Status Wheelchair Wheelchair Wheelchair Transportation [employer] Medication Reconcilliation completed & Yes Yes No [...] 2 weeks. This note was generated with [employer] dictation software. It may contain incorrectwords, spelling, and punctuation that were not noted in checking the note beforesigning. 02/07/23 1152 <Electronically signed by Chilango Laughlin MD> Cosigner Signature (if applicable): CC: ~ Signed [facility] Work Phone: [phone]) 594-582107-20-2023 Progress note Author Chilango Laughlin [facility] January 31, 2023 10:02am Note Date/Time January 31, 2023 10:0 2am [facility] [address] [place] [address] Progress Note - Wound Care 01/31/23 1000 MR#: [id number] Acct: [id number] Name: JULIANA MERIDA Rep #:[id number] : 1960 62 From: Chilango joy MD [...] Method Room Air Charges/Coding Procedures Integumentary 150xxx-152xx: 11446 Skin sub graft trnk/arm/leg Physical Exam Const [...] Recorded Date Recorded By Document 01/17/23 09:59 [id number] 01/17/23 10:00 Document 01/24/23 09:02 KW [id number] 01/24/23 09:20 KW Document 01/31/23 08:45 RB [id number] 01/31/23 08:51 RB 01/17/23 01/24/23 01/31/23 09:59 09:02 08:45 - Today's Visit Information Type of service Follow-up Visit Follow-up Visit Follow-up Visit (Physician/APPLE TURNER (Physician/APPLE TURNER (Physician/APPLE TURNER ) ) ) Arrival Mode Wheelchair Wheelchair [...] Date Recorded By Document 01/17/23 09:59 JF [id number] 01/17/23 10:00 JF Document 01/24/23 09:02 KW [id number] 01/24/23 09:20 KW Document 01/31/23 08:45 RB [id number] 01/31/23 08:51 RB 01/17/23 01/24/23 01/31/23 09:59 [...] Small (1-33%) Medium (34-66%) -Granulation Quality Red Cannon Ball Cannon Ball -Slough/Fibrin Yes -Necrosis Amt Medium (34-66%) Small [...] Date Recorded By Document 01/17/23 10:11 MW [id number] 01/17/23 10:20 MW Document 01/24/23 09:52 MW [id number] 01/24/23 09:54 MW Document 01/31/23 09:28 MW [id number] 01/31/23 09:36 MW 01/17/23 01/24/23 01/31/23 10:11 [...] Date 11/13/27 11/13/27 12/14/27 -Product Lot Number [id number] 002 001 -Percent Used 100 100 100 -Lot number of Saline Used [id number] -Bleeding Controlled with Pressure Pressure Pressure -Treatment [...] Recorded Date Recorded By Document 01/17/23 12:06 [id number] 01/17/23 12:07 JF Document 01/24/23 10:01 JF [id number] 01/24/23 10:02 JF Document 01/31/23 09:49 RB [id number] 01/31/23 09:50 RB 01/17/23 01/24/23 01/31/23 12:06 [...] Stable Ambulatory Status Wheelchair Wheelchair Wheelchair Transportation [employer] Medication Reconcilliation completed & Yes Yes No [...] 1 week. This note was generated with [employer] dictation software. It may contain incorrectwords, spelling, and punctuation that were not noted in checking the note beforesigning. 01/31/23 1002 <Electronically signed by Chilango Laughlin MD> Cosigner Signature (if applicable): CC: ~ Signed [facility] Work Phone: 1([phone]) 952-820307-13-2023 Progress note Author Chilango Laughlin [facility] January 24, 2023 11:28am Note Date/Time January 24, 2023 11:2 8am [facility] [address] [place] [address] Progress Note - Wound Care 01/24/23 1125 MR#: [id number] Acct: [id number] Name: JULIANA MERIDA Rep #:[id number] : 1960 62 From: Chilango joy MD [...] Method Room Air Charges/Coding Procedures Integumentary 150xxx-152xx: 98108 Skin sub graft trnk/arm/leg Physical Exam Const [...] Recorded Date Recorded By Document 01/17/23 09:59 [id number] 01/17/23 10:00 Document 01/24/23 09:02 [id number] 01/24/23 09:20 KW 01/17/23 01/24/23 09:59 09:02 - Today's Visit Information Type of service Follow-up Visit Follow-up Visit (Physician/APPLE TURNER (Physician/APPLE TURNER ) ) Arrival Mode Wheelchair Wheelchair Patient [...] Recorded Date Recorded By Document 01/17/23 09:59 [id number] 01/17/23 10:00 Document 01/24/23 09:02 KW [id number] 01/24/23 09:20 KW 01/17/23 01/24/23 09:59 09:02 [...] Medium (34-66%) Small (1-33%) -Granulation Quality Red Cannon Ball -Slough/Fibrin Yes -Necrosis Amt Medium (34-66%) Small [...] Date Recorded By Document 01/17/23 10:11 MW [id number] 01/17/23 10:20 MW Document 01/24/23 09:52 MW [id number] 01/24/23 09:54 MW 01/17/23 01/24/23 10:11 09:52 [...] -Expiration Date 11/13/27 11/13/27 -Product Lot Number [id number] 002 -Percent Used 100 100 -Lot number of Saline Used [id number] -Bleeding Controlled with Pressure Pressure -Treatment Response [...] Recorded Date Recorded By Document 01/17/23 12:06 [id number] 01/17/23 12:07 Document 01/24/23 10:01 [id number] 01/24/23 10:02 01/17/23 01/24/23 12:06 10:01 Wound [...] Stable Stable Ambulatory Status Wheelchair Wheelchair Transportation [employer] Medication Reconcilliation completed & Yes Yes provided [...] 1 week. This note was generated with [employer] software. It may contain incorrectwords, spelling, and punctuation that were not noted in checking the note beforesigning. 01/24/23 1128 <Electronically signed by Chilango Laughlin MD> Cosigner Signature (if applicable): CC: ~ Signed [facility] Work Phone: [phone]) 793-131807-06-2023 Progress note Author therese Laughlin [facility] January 17, 2023 12:32pm Note Date/Time January 17, 2023 12:29 pm [facility] [address] [place] [address] Progress Note - Wound Care 01/17/23 1226 MR#: [id number] Acct: [id number] Name: JULIANA MERIDA Rep #:[id number] : 1960 62 From: Chilango joy MD [...] 09:59 01/17/23 09:59 Charges/Coding Procedures Integumentary 150xxx-152xx: 74511 Skin sub graft trnk/arm/leg Physical Exam Const [...] Date Recorded By Document 01/17/23 09:59 JANICE [id number] 01/17/23 10:00 JANICE 01/17/23 09:59 RUY - Today's Visit Information Type of service Follow-up Visit (Physician/APPLE TURNER ) Arrival Mode Wheelchair Patient Identification Verified [...] Recorded Date Recorded By Document 01/17/23 09:59 [id number] 01/17/23 10:00 JANICE 01/17/23 09:59 Wound Center [...] Date Recorded By Document 01/17/23 10:11 MW [id number] 01/17/23 10:20 MW 01/17/23 10:11 Wound Center [...] Disc -Expiration Date 11/13/27 -Product Lot Number [id number] -Percent Used 100 -Bleeding Controlled with [...] Date Recorded By Document 01/17/23 12:06 JANICE [id number] 01/17/23 12:07 JANICE 01/17/23 12:06 Wound Care [...] 1 week. This note was generated with [employer] dictation software. It may contain incorrectwords, spelling, and punctuation that were not noted in checking the note beforesigning. 01/17/23 1232 <Electronically signed by Chilango Laughlin MD> Cosigner Signature (if applicable): CC: ~ Signed [facility] Work Phone: [phone]) [phone] Progress note Author Beata Pardo [facility] January 11, 2023 5:30pm Note Date/Time January 11, 2023 5:[address] [facility] [address] [place] [address] Progress Note - Wound Care 01/11/23 1723 MR#: [id number] Acct: [id number] Name: JULIANA MERIDA Rep #:[id number] : 1960 62 From: Beata HILLIARD PCP: [...] Method Room Air Charges/Coding Procedures Integumentary 150xxx-152xx: 21263 Skin sub graft trnk/arm/leg Physical Exam Const [...] Start: 12/13/22 09:39 Freq: Status: Active Protocol: [employer]BRIANDA Activity Type Activity Date Activity User E-sign Co-sign Detail Recorded Client Recorded Date Recorded By Document 12/13/22 09:39 [facility] [id number] 12/13/22 09:42 [facility] Document 12/20/22 09:48 [facility] [id number] 12/20/22 09:59 [facility] Document 01/03/23 09:05 [facility] [id number] 01/03/23 09:16 [facility] Document 01/11/23 13:25 PL [id number] 01/11/23 13:35 PL 12/13/22 12/20/22 01/03/23 09:39 09:48 09:05 - Today's Visit Information Type of service Follow-up Visit Follow-up Visit Follow-up Visit (Physician/APPLE TURNER (Physician/APPLE TURNER (Physician/APPLE TURNER ) ) ) Arrival Mode Wheelchair Wheelchair [...] WILL TAKE PAIN MEDS [facility] 01/11/23 13:25 WC - Today's Visit Information Type of service Follow-up Visit (Physician/APPLE TURNER ) Arrival Mode Wheelchair Transfer Assistance None [...] Recorded Date Recorded By Document 12/13/22 09:39 [facility] [id number] 12/13/22 09:42 BM Document 12/20/22 09:48 [facility] [id number] 12/20/22 09:59 BM Document 01/03/23 09:05 [facility] [id number] 01/03/23 09:16 BMF 12/13/22 12/20/22 01/03/23 09:39 [...] Date Recorded By Document 12/13/22 09:53 MW [id number] 12/13/22 10:02 MW Document 12/20/22 10:48 MW [id number] 12/20/22 10:58 MW Document 01/03/23 10:08 MW [id number] 01/03/23 10:17 MW Document 01/11/23 15:55 PL [id number] 01/11/23 15:56 PL 12/13/22 12/20/22 01/03/23 09:53 [...] Date 09/13/27 10/14/27 10/14/27 -Product Lot Number [id number] 001 006 -Percent Used 100 100 100 -Lot number of Saline Used [id number] -Bleeding Controlled with Pressure Pressure Pressure -Treatment [...] Disc -Expiration Date 10/14/27 -Product Lot Number [id number] -Percent Used 100 -Lot number of [...] Date Recorded By Document 12/13/22 10:17 DL [id number] 12/13/22 10:18 DL Document 12/20/22 11:45 DL [id number] 12/20/22 11:46 DL Document 01/03/23 10:33 BMF [id number] 01/03/23 10:34 BMF Document 01/11/23 14:04 RB [id number] 01/11/23 14:05 RB 12/13/22 12/20/22 01/03/23 10:17 [...] Clinical Summary of Care Provided Facility Type Emergency Spill Response Technician Care Senior Living Care Emergency Spill Response Technician Care Facility Facility Facility Orders Sent Yes [...] as scheduled. This note was generated with [employer] dictation software. It may contain incorrectwords, spelling, and punctuation that were not noted in checking the note beforesigning. 01/11/23 1730 <Electronically signed by Beata HILLIARD> Cosigner Signature (if applicable): CC: ~ Signed [facility] Work Phone: 1(755) 871-197906-22-2023 Progress note Author Chilango Laughlin [facility] January 03, 2023 1:45pm Note Date/Time January 03, 2023 10:[address] [facility] [address] [place] [address] Progress Note - Wound Care 01/03/23 1037 MR#: [id number] Acct: [id number] Name: JULIANA MERIDA YANELI Rep #:[id number] : 1960 62 From: Chilango joy MD [...] Method Room Air Charges/Coding Procedures Integumentary 150xxx-152xx: 60388 Skin sub graft trnk/arm/leg Physical Exam Const [...] Recorded Date Recorded By Document 12/13/22 09:39 [facility] [id number] 12/13/22 09:42 BM Document 12/20/22 09:48 [facility] [id number] 12/20/22 09:59 BM Document 01/03/23 09:05 [facility] [id number] 01/03/23 09:16 [facility] 12/13/22 12/20/22 01/03/23 09:39 09:48 09:05 - Today's Visit Information Type of service Follow-up Visit Follow-up Visit Follow-up Visit (Physician/APPLE TURNER (Physician/APPLE TURNER (Physician/APPLE TURNER ) ) ) Arrival Mode Wheelchair Wheelchair [...] WILL TAKE PAIN MEDS UPON [facility] WC - Nurse 1 - General Ulcer Measurement Start: 12/13/22 09:39 Freq: Status: Active Protocol: Activity Type Activity Date Activity User E-sign Co-sign Detail Recorded Client Recorded Date Recorded By Document 12/13/22 09:39 [facility] [id number] 12/13/22 09:42 [facility] Document 12/20/22 09:48 [facility] [id number] 12/20/22 09:59 [facility] Document 01/03/23 09:05 [facility] [id number] 01/03/23 09:16 [facility] 12/13/22 12/20/22 01/03/23 09:39 09:48 09:05 [...] Date Recorded By Document 12/13/22 09:53 MW [id number] 12/13/22 10:02 MW Document 12/20/22 10:48 MW [id number] 12/20/22 10:58 MW Document 01/03/23 10:08 MW [id number] 01/03/23 10:17 MW 12/13/22 12/20/22 01/03/23 09:53 [...] Date 09/13/27 10/14/27 10/14/27 -Product Lot Number [id number] 001 006 -Percent Used 100 100 100 -Lot number of Saline Used [id number] -Bleeding Controlled with Pressure Pressure Pressure -Treatment [...] Date Recorded By Document 12/13/22 10:17 DL [id number] 12/13/22 10:18 DL Document 12/20/22 11:45 DL [id number] 12/20/22 11:46 DL Document 01/03/23 10:33 [facility] [id number] 01/03/23 10:34 [facility] 12/13/22 12/20/22 01/03/23 10:17 11:45 10:33 [...] Private Auto Private Auto ECF Facility Type Senior Living Care Senior Living Care Emergency Spill Response Technician Care Facility Facility Facility Orders Sent Yes [...] with me. This note was generated with [employer] dictation software. It may contain incorrectwords, spelling, and punctuation that were not noted in checking the note beforesigning. 01/03/23 1345 <Electronically signed by Chilango Laughlin MD> Cosigner Signature (if applicable): CC: ~ Signed [facility] Work Phone: 1([phone]) 476-955106-08-2023 Progress note Author Chilanog Laughlin [facility] December 20, 2022 12:33pm Note Date/Time December 20, 2022 12:[address] [facility] [address] [place] [address] Progress Note - Wound Care 12/20/22 1223 MR#: [id number] Acct: [id number] Name: JULIANA MERIDA Rep #:[id number] : 1960 62 From: Chilango joy MD [...] Method Room Air Charges/Coding Procedures Integumentary 150xxx-152xx: 49063 Skin sub graft trnk/arm/leg Physical Exam Const [...] Recorded Date Recorded By Document 12/13/22 09:39 [facility] [id number] 12/13/22 09:42 [facility] Document 12/20/22 09:48 [facility] [id number] 12/20/22 09:59 [facility] 12/13/22 12/20/22 09:39 09:48 - Today's Visit Information Type of service Follow-up Visit Follow-up Visit (Physician/APPLE TURNER (Physician/APPLE TURNER ) ) Arrival Mode Wheelchair Wheelchair Transfer [...] WILL TAKE PAIN MEDS UPON [facility] WC - Nurse 1 - General Ulcer Measurement Start: 12/13/22 09:39 Freq: Status: Active Protocol: Activity Type Activity Date Activity User E-sign Co-sign Detail Recorded Client Recorded Date Recorded By Document 12/13/22 09:39 [facility] [id number] 12/13/22 09:42 [facility] Document 12/20/22 09:48 [facility] [id number] 12/20/22 09:59 [facility] 12/13/22 12/20/22 09:39 09:48 Wound Center [...] Date Recorded By Document 12/13/22 09:53 MW [id number] 12/13/22 10:02 MW Document 12/20/22 10:48 MW [id number] 12/20/22 10:58 MW 12/13/22 12/20/22 09:53 10:48 [...] -Expiration Date 09/13/27 10/14/27 -Product Lot Number [id number] 001 -Percent Used 100 100 -Lot number of Saline Used [id number] -Bleeding Controlled with Pressure Pressure -Treatment Response [...] Date Recorded By Document 12/13/22 10:17 DL [id number] 12/13/22 10:18 DL Document 12/20/22 11:45 DL [id number] 12/20/22 11:46 DL 12/13/22 12/20/22 10:17 11:45 [...] Transportation Private Auto Private Auto Facility Type Senior Living Care Emergency Spill Response Technician Care Facility Facility Orders Sent Yes Yes [...] if needed. This note was generated with [employer] software. It may contain incorrectwords, spelling, and punctuation that were not noted in checking the note beforesigning. 12/20/22 1233 <Electronically signed by Chilango Laughlin MD> Cosigner Signature (if applicable): CC: ~ Signed [facility] Work Phone: 1([phone]) 231-105006-01-2023 Progress note Author Chilango Laughlin [facility] December 13, 2022 10:30am Note Date/Time December 13, 2022 10:19 am [facility] [address] [place] [address] Progress Note - Wound Care 12/13/22 1017 MR#: [id number] Acct: [id number] Name: JULIANA MERIDA Rep #:[id number] : 1960 62 From: Chilango joy MD [...] 09:39 12/13/22 09:39 Charges/Coding Procedures Integumentary 150xxx-152xx: 68606 Skin sub graft trnk/arm/leg Physical Exam Const [...] Start: 12/13/22 09:39 Freq: Status: Active Protocol: CLOIVS Activity Type Activity Date Activity User E-sign Co-sign Detail Recorded Client Recorded Date Recorded By Document 12/13/22 09:39 [facility] [id number] 12/13/22 09:42 [facility] 12/13/22 09:39 - Today's Visit Information Type of service Follow-up Visit (Physician/APPLE TURNER ) Arrival Mode Wheelchair Transfer Assistance None [...] Recorded Date Recorded By Document 12/13/22 09:39 [facility] [id number] 12/13/22 09:42 [facility] 12/13/22 09:39 Wound Center Nurse 1 [...] Recorded Date Recorded By Document 12/13/22 09:53 [id number] 12/13/22 10:02 MW 12/13/22 09:53 Wound Center [...] Disc -Expiration Date 09/13/27 -Product Lot Number [id number] -Percent Used 100 -Lot number of Saline Used [id number] -Bleeding Controlled with Pressure -Treatment Response Procedure [...] if needed. This note was generated with [employer] dictation software. It may contain incorrectwords, spelling, and punctuation that were not noted in checking the note beforesigning. 12/13/22 1030 <Electronically signed by Chilango Laughlin MD> Cosigner Signature (if applicable): CC: ~ Signed [facility] Work Phone: 1(587) 573-175405-25-[address] [facility] December 06, 2022 10:40am Note Date/Time December 06, 2022 10:40 am [facility] [address] [place] [address] Progress Note - Wound Care 12/06/22 1038 MR#: [id number] Acct: [id number] Name: JULIANA MERIDA Rep #:[id number] : 1960 62 From: Chilango joy MD [...] anaerobic bacteria isolated. Charges/Coding Procedures Integumentary 150xxx-152xx: 67092 Skin sub graft trnk/arm/leg Physical Exam Const [...] Date Recorded By Document 11/22/22 08:59 DL [id number] 11/22/22 09:12 Document 11/29/22 09:28 [facility] [id number] 11/29/22 09:43 [facility] Document 12/06/22 09:36 DL [id number] 12/06/22 09:46 DL 11/22/22 11/29/22 12/06/22 08:59 09:28 09:36 - Today's Visit Information Type of service Initial Visit Follow-up Visit Follow-up Visit (Physician/APPLE TURNER (Physician/APPLE TURNER ) ) Arrival Mode Wheelchair Wheelchair Wheelchair [...] & Hygeine No Communication Assessment Preferred language Sammarinese Able to Read Yes Able to Write [...] in Ability to Perform Denies Any Declines Culture/Uatsdin/Professional Services Consultant Cultural/Uatsdin Needs that may affect No Treatment Plan Would you allow our hospital dynamite packing machine feeder to No meet you for the purpose of spiritual/ emotional support? Professional Services Consultant to contact place of religion No Teaching: Wound Center Discharge Instructions -Person Taught Patient Dressing Your Wound -Person Taught Patient *Welcome to the Wound Center -Person Taught Patient WC - Nurse 1 - General Ulcer Measurement Start: 11/22/22 08:59 Freq: Status: Active Protocol: Activity Type Activity Date Activity User E-sign Co-sign Detail Recorded Client Recorded Date Recorded By Document 11/22/22 08:59 DL [id number] 11/22/22 09:12 DL Document 11/29/22 09:28 [facility] [id number] 11/29/22 09:43 BMF Document 12/06/22 09:36 DL [id number] 12/06/22 09:46 DL 11/22/22 11/29/22 12/06/22 08:59 [...] (34-66%) Large (67-100%) -Granulation Quality Red Red Pale,[place] -Slough/Fibrin Yes -Necrosis Amt Small (1-33%) Medium [...] Date Recorded By Document 11/22/22 09:38 MW [id number] 11/22/22 09:48 MW Document 11/29/22 09:52 [id number] 11/29/22 10:00 JF Document 12/06/22 10:26 MW [id number] 12/06/22 10:37 MW 11/22/22 11/29/22 12/06/22 09:38 [...] -Expiration Date 06/14/27 08/15/27 -Product Lot Number [id number] -Percent Used 100 100 -Lot number of Saline Used [id number] -Bleeding Controlled with Pressure Pressure Pressure -Treatment [...] Recorded Date Recorded By Document 11/22/22 10:16 [id number] 11/22/22 10:17 RB Document 11/29/22 10:09 [facility] [id number] 11/29/22 10:10 [facility] 11/22/22 11/29/22 10:16 10:09 Wound Care [...] Summary of Care Provided Yes Facility Type Emergency Spill Response Technician Care Facility Assessment/Plan Assessment/Plan (1) Chronic ulcer [...] if needed. This note was generated with [employer] software. It may contain incorrectwords, spelling, and punctuation that were not noted in checking the note beforesigning. 12/06/22 1040 <Electronically signed by Chilango Laughlin MD> Cosigner Signature (if applicable): CC: ~ Signed [facility] Work Phone: 1(410) 932-925305-18-[address] [facility] November 29, 2022 1:11pm Note Date/Time November 29, 2022 1:11p [facility] [address] [place] [id number] Progress Note - Wound Care 11/29/22 1302 MR#: [id number] Acct: [id number] Name: JULIANA MERIDA YANELI Rep #:[id number] : 1960 62 From: Chilango joy MD [...] anaerobic bacteria isolated. Charges/Coding Procedures Integumentary 150xxx-152xx: 64841 Skin sub graft trnk/arm/leg Physical Exam Const [...] Date Recorded By Document 11/22/22 08:59 DL [id number] 11/22/22 09:12 DL Document 11/29/22 09:28 [facility] [id number] 11/29/22 09:43 BMF 11/22/22 11/29/22 08:59 09:28 WC - Today's Visit Information Type of service Initial Visit Follow-up Visit (Physician/APPLE TURNER ) Arrival Mode Wheelchair Wheelchair Transfer Assistance [...] & Hygeine No Communication Assessment Preferred language Sammarinese Able to Read Yes Able to Write [...] in Ability to Perform Denies Any Declines Culture/Uatsdin/Professional Services Consultant Cultural/Uatsdin Needs that may affect No Treatment Plan Would you allow our hospital dynamite packing machine feeder to No meet you for the purpose of spiritual/ emotional support? Professional Services Consultant to contact place of religion No Teaching: Wound Center Discharge Instructions -Person Taught Patient Dressing Your Wound -Person Taught Patient *Welcome to the Wound Center -Person Taught Patient WC - Nurse 1 - General Ulcer Measurement Start: 11/22/22 08:59 Freq: Status: Active Protocol: Activity Type Activity Date Activity User E-sign Co-sign Detail Recorded Client Recorded Date Recorded By Document 11/22/22 08:59 DL [id number] 11/22/22 09:12 DL Document 11/29/22 09:28 [facility] [id number] 11/29/22 09:43 BM 11/22/22 11/29/22 08:59 09:28 [...] Date Recorded By Document 11/22/22 09:38 MW [id number] 11/22/22 09:48 MW Document 11/29/22 09:52 [id number] 11/29/22 10:00 11/22/22 11/29/22 09:38 09:52 Wound [...] Epifix -Expiration Date 06/14/27 -Product Lot Number [id number] -Percent Used 100 -Lot number of Saline Used [id number] -Bleeding Controlled with Pressure Pressure -Treatment Response [...] Recorded Date Recorded By Document 11/22/22 10:16 [id number] 11/22/22 10:17 RB Document 11/29/22 10:09 [facility] [id number] 11/29/22 10:10 [facility] 11/22/22 11/29/22 10:16 10:09 Wound Care [...] Summary of Care Provided Yes Facility Type Senior Living Care Facility Assessment/Plan Assessment/Plan (1) Chronic ulcer [...] if needed. This note was generated with [employer] dictation software. It may contain incorrectwords, spelling, and punctuation that were not noted in checking the note beforesigning. 11/29/22 1311 <Electronically signed by Chilango Laughlin MD> Cosigner Signature (if applicable): CC: ~ Signed [facility] Work Phone: 1(895) 270-711205-12-2023 History and physical note Author Dr. Laughlin [facility] November 23, 2022 11:49am Note Date/Time November 22, 2022 1:34p m [facility] [address] [place] [id number] H&P Exam - Wound Care 11/22/22 1322 MR#: [id number] Acct: [id number] Name: JULIANA MERIDA YANELI Rep #:[id number] : 1960 62 From: Chilango joy MD [...] nausea, vomitingor change in bowel habit reported. [facility] Medical History (Updated 11/22/22 @ 13:32 by [...] Date Recorded By Document 11/22/22 08:59 RAMYA [id number] 11/22/22 09:12 DL 11/22/22 08:59 - Today's [...] & Hygeine No Communication Assessment Preferred language Sammarinese Able to Read Yes Able to Write [...] in Ability to Perform Denies Any Declines Culture/Uatsdin/Professional Services Consultant Cultural/Uatsdin Needs that may affect No Treatment Plan Would you allow our hospital dynamite packing machine feeder to No meet you for the purpose of spiritual/ emotional support? Professional Services Consultant to contact place of religion No Teaching: Wound Center Discharge Instructions -Person Taught Patient Dressing Your Wound -Person Taught Patient *Welcome to the Wound Center -Person Taught Patient WC - Nurse 1 - General Ulcer Measurement Start: 11/22/22 08:59 Freq: Status: Active Protocol: Activity Type Activity Date Activity User E-sign Co-sign Detail Recorded Client Recorded Date Recorded By Document 11/22/22 08:59 DL [id number] 11/22/22 09:12 DL 11/22/22 08:59 Wound Center [...] Date Recorded By Document 11/22/22 09:38 MW [id number] 11/22/22 09:48 MW 11/22/22 09:38 Wound Center [...] Date Recorded By Document 11/22/22 10:16 RB [id number] 11/22/22 10:17 RB 11/22/22 10:16 Wound Care [...] Charges/Coding Visit Charges Office Visits / Consults: 13983 OV L4 New Procedures Integumentary 111xxx-113xx: 96583 Carla subq tissue 20 sq cm/< Assessment/Plan [...] if needed. This note was generated with [employer] software. It may contain incorrectwords, spelling, and punctuation that were not noted in checking the note beforesigning. 11/23/22 7887 <Electronically signed by Chilango Laughlin MD> Cosigner Signature (if applicable): CC: ~ Signed [facility] Work Phone: 1(228) 112-164004-05-2023 Hospital Discharge instructions Patient Education 10/17/2022 05:07:08 [...] thin towel or cloth. You may use flxs-fnu-cczkxiz pain medicine (NSAIDS or nonsteroidal anti- inflammatory [...] or is irritated You re-injure your ankle [phone] [employer]. [address] [place] [address]. All rights reserved. This information is not intended as a substitute for professional medical care. Always follow yourhealthcare professional's instructions. Follow Up Care 10/17/2022 04:04:56 With:LANA ARRIETA Address: [address] [facility] [place] [address]- Business (1) When:2-[address] [facility] 04-05-2023 Note Discharge Instructions Thank you for allowing [facility] to assist you with your healthcare needs. [...] days Where: [address] [facility] [place] [address]- Business (1) Allergies Apricots (Rash) Bee Stings (Anaphylactic reaction) [place] (Rash) Dilaudid Lactose Milk Products (Rash) Peas [...] thin towel or cloth. You may use mfwo-kvd-huntgmv pain medicine (NSAIDS or nonsteroidal anti- inflammatory [...] or is irritated You re-injure your ankle [phone] [employer]. [address] [place] [address], [place] [address]. All rights reserved. This information is not intended as a substitute for professional medical care. Always follow yourhealthcare professional's instructions. Additional Information VACCINATE! IT SAVES LIVES! Members of the community who have not yet received the COVID-19 vaccine and would like to receive it can visit one of [facility] vaccine clinics. There are many vaccine clinic locations within the [facility]. For locations and available times, please visit [email or web address].[email or web address]/. It is important to note that some COVID mobile vaccine clinics are held outdoors and may be canceled in rainy or stormy conditions. To learn more about pediatric vaccinations (ages 5-11), we invite you to visit the [facility] webpage. [email or web address]://[email or web address]/[email or web address]-[email or web address] [email or web address].htmlTo learn more about the COVID-19 vaccine, we invite you to visit the CDC website for a list of frequently asked questions. https://www.cdc.gov/coronavirus/2019-ncov/vaccines/faq.html [facility] Patient Portal Access Instructions: Stay connected with your healthcare team and access your personal medical information anytime with the [facility] Patient Portal. If you would like a full copy of your medical records please contact the [facility] Medical Records Department Saturday through Saturday between 8a.m. and 4:30p.m. Please follow the directions below to access the portal: 1.Access the email account you provided upon registration to the hospital.2.Look for an invitation email from [facility].3.Open the email and access the invitation link: Accept Invitation to [facility]4.Fill in the required lozano to create your account. Sign into www.[employer] with your username and password that you [...] you will allow to register on the [facility] Patient Portal for access to your information. You can also access the [facility] Patient Portal on the [employer]. Simply click on Health Records under HealthData and then click on the [employer] logo. HOW TO SAFELY DISPOSE OF PRESCRIPTION [...] Call your local pharmacy or go to [email or web address] to find one close to you.3.Make use of household items: Use cat litter or old coffee grounds to dispose medications if other options arenot available. Mix your drugs with these household products, seal them in an airtight container andthrow it into the garbage. Call [facility]: [phone] to be sure your drugs can be [...] aware that I should contact my doctor. Patient/Assistant Signature: Date/Time: Relationship to Patient: Witness Name/Signature: Date/Time: [facility]04-05-2023 Note ORIGINAL EXAMINATION: 6 XRAY VIEWS OF [...] 10/17/2022 5:04:00 AM Ordering Provider: MAKENNA HYATT [facility]04-05-2023 Note ORIGINAL EXAMINATION: THREE XRAY VIEWS [...] Sign Date: 10/17/2022 5:02:30 AM Ordering Provider: [facility]04-05-2023 Note ORIGINAL EXAMINATION: 6 XRAY VIEWS OF [...] Sign Date: 10/17/2022 5:04:00 AM Ordering Provider: [facility]04-05-2023 Note ORIGINAL EXAMINATION: THREE XRAY VIEWS OF [...] by: Marvel Batista MD Preliminary Report By: aCn Pickett Electronically signed By Marvel Batista MD Dictated Date: 10/17/2022 4:45:32 AM Prelim Date: 10/17/2022 4:50:33 AM Sign Date: 10/17/2022 5:02:30 AM Ordering Provider: [facility]03-02-2023 History of Present illness Narrative* Funmilayo Pope [...] getting TPI. Now seeing Dr. Ruelas in [place] Has morphine pump Meeting with pain mgmt [...] Antibody Latest Ref Range: <30 IU/mL <12 Anti-SOAP DRIER TENDER Latest Ref Range: <1.0 AI 0.7 Anti-SSB [...] file. Funmilayo Pope MD [facility] Hospital Discharge instructions Patient Education 04/28/2022 [...] Swelling, pain or redness in one leg [phone] [employer] [address] [place] [address]. All rights reserved. This information is not intended as a substitute for professional medical care. Always follow yourhealthcare professional's instructions. Follow Up Care 04/28/2022 17:19:37 With:LANA ARRIETA Address: [address] [facility] [place] [address]- Business (1) When:2-4 days Comments:Schedule appointment for close follow-up.Resume all routine home medications.Return to the ED if symptoms worsen. [facility] 10-15-2022 Note ORIGINAL EXAMINATION: ONE XRAY VIEW [...] Date: 04/28/2022 6:24:18 PM Ordering Provider: TAVIA [facility]10-15-2022 Note ORIGINAL EXAMINATION: ONE XRAY VIEW OF [...] Date: 04/28/2022 6:24:18 PM Ordering Provider: TAVIA [facility]07-20-2022 Miscellaneous Notes* Telephone Encounter - Esther Lopez Electrical Superintendent Ppg - 01/31/2022 10:53 AM EDT Prolia - NO PA REQ for medicare B Esther Lopez Electrical Superintendent Ppg Advised Ashtyn to schedule pt. * Telephone Encounter - Berenice dEmond PA-C - 01/31/2022 9:40 AM EDT ARMINDA Edmond PA-C documented in this encounterC[facility]-2022 Miscellaneous Notes* Addendum Note - Berenice Edmond PA-C - 01/31/2022 9:41 AM EDT Addended by: BERENICE EDMOND on: 01/31/2022 09:41 AM Modules accepted: Orders documented in this encounterC[facility]07-20-2022 History of Present illness Narrative* Berenice Edmond PA-C - 01/31/2022 8:56 AM EDT Images from the original note were not included. [facility] Arthritis and Rheumatology Berenice Trung Danielito [address] [place] [address] RHEUMATOLOGY PROGRESS NOTE Patient is here for [...] getting TPI. Now seeing Dr. Ruelas in [place] Has morphine pump Meeting with pain mgmt [...] Antibody Latest Ref Range: <30 IU/mL <12 Anti-SOAP DRIER TENDER Latest Ref Range: <1.0 AI 0.7 Anti-SSB [...] Pope. Berenice Edmond PA-C documented in this encounterC[facility]06-01-2022 History of Present illness Narrative* Ronaldo Villarreal MD - 12/13/2021 10:00 AM EDT [facility] HPI Juliana Merida is a 61 year old female who presents for TPI. Her pain is located over the neck (R>L) and low back. There is also radiation into the arms and legs. The patient has an ITP pump and is seeking a new provider for management. This was placed in 2011 and [place] [address] Ruelas in [place]. A referral was entered for an consultation [...] (FLONASE) 50 mcg/actuation nasal spray Use 1 [place] in each nostril once daily. . 0 [...] daily as needed. 1 Inhalation 11 Insulin [place], Disposable, (PEN NEEDLE) 29 x 1/2 ndle [...] Bupivacaine 5 %, Amitriptyline 2 % 0 Kxlmhuifxwplu-Zorauwpl-Enxznb (CENTRUM SILVER) tab Take 1 tablet by [...] times (time out, procedure start, procedure end). [facility] protocol documentation / Pre-Procedure checklist: 1. Unless [...] Ronaldo Villarreal MD [facility] * Madeleine Verma MA - 12/13/2021 [...] The patient is nervous/anxious. documented in this [facility]06-01-2022 Procedure note* Ronaldo Villarreal MD - 12/13/2021 [...] procedurewell without apparent complications. documented in this [facility]06-01-2022 Instructions* Patient Instructions* Tejal Carter LPN - 12/13/2021 9:29 AM EDT documented in this [facility]06-01-2022 Nurse Note* Madeleine Verma MA - 12/13/2021 [...] are you scheduled to receive one? n Production Supv's Name: Medical Transportation documented in this encounterC[facility]05-[facility]-2022 Evaluation + Plan note Diagnostic Tests Pending * Urine Culture 12/01/21 [facility] 05-20-2022 Hospital Discharge instructions Patient Education [...] or a fever with an unknown cause. Gqzj-qfk-ivuglty medicines will not shorten the duration of [...] your healthcare provider Feeling weak or dizzy [phone] [employer]. [address] [place] [address], [place] [address]. All rights reserved. This information is not intended as a substitute for professional medical care. Always follow yourhealthcare professional's instructions. Follow Up Care 11/30/2021 18:10:39 With:LANA ARRIETA MD Address: [address] [facility] [place] [address]- When:2-4 days [facility] 05-19-2022 HCoV 229E RNA IRISH+non-probe Ql (Nph)Not Detected *NA* (11/30/21 8:58 PM)AH Auto Viro/Sero [id number] Procedure note* Luis Pagan DO - 11/21/2021 [...] chart. Luis Pagan DO documented in this encounterC[facility]04-28-2022 Miscellaneous Notes* Telephone Encounter - Samara Nath 11/09/2021 3:02 PM EDT 11/09/2021 PT WILL CALL IN WITH JOI PHONE NUMBER FOR THE CANCELLATION LIST. PT. NEEDS TO COME IN FORTPI WITH JUDAH CUEVASP. WAS SCHEDULED INCORRECT. Samara Cliff documented in this encounterC[facility]04-05-2022 Miscellaneous Notes* Telephone Encounter - Funmilayo Pope MD - 10/17/2021 12:34 PM EDT Does reclast need PA? documented in this encounterC[facility]01-24-2022 NoteHNO ID: [id number] Author: RT Elvin(R) Service: ? Author Type: [...] BY: RT Elvin(R) August 07, 2021 11:37 [facility]07-23-2008 History of Past illness Narrative* Problem Noted [...] of this encounter (statuses as of 10/17/2021) [address]23-2008 History of Past illness Narrative* Problem [...] of this encounter (statuses as of 11/09/2021) [facility] of Past illness Narrative* Problem [...] of this encounter (statuses as of 11/21/2021) [facility] of Past illness Narrative* Problem [...] of this encounter (statuses as of 11/29/2021) [address]23-2008 History of Past illness Narrative* Problem [...] of this encounter (statuses as of 12/13/2021) [address]23-2008 History of Past illness Narrative* Problem [...] of this encounter (statuses as of 01/31/2022) [address]23-2008 History of Past illness Narrative* Problem [...] of this encounter (statuses as of 01/31/2022) [place] [address]-23-2008 History of Past illness Narrative* Problem Noted [...] of this encounter (statuses as of 03/07/2022) [address]23-2008 History of Past illness Narrative* Problem [...] of this encounter (statuses as of 09/05/2022) [address]23-2008 History of Past illness Narrative* Problem [...] of this encounter (statuses as of 09/13/2022) [address]23-2008 History of Past illness Narrative* Problem [...] of this encounter (statuses as of 03/07/2023) [address]23-2008 History of Past illness Narrative* Problem [...] of this encounter (statuses as of 03/13/2023) [address]23-2008 History of Past illness Narrative* Problem [...] of this encounter (statuses as of 03/13/2023) [facility] of [facility] illness Narrative* Problem [...] of this encounter (statuses as of 03/26/2023) [facility] of Past illness Narrative* Problem [...] of this encounter (statuses as of 09/20/2023) [facility] History of Past illness Narrative* Problem [...] of this encounter (statuses as of 10/07/2023) [facility] Future Appointments Appointment Date:09/28/2024 01:00:00 PM Scheduled Provider:MAULIK العلي DO Location:UROLOGY Appointment Type:URO OV Future Scheduled Tests Radiology* US Renal 09/13/24 [facility] Evaluation + Plan note Future Appointments Appointment Date:10/01/2025 02:00:00 PM Scheduled Provider:MAULIK العلي DO Location:UROLOGY Appointment Type:URO OV Future Scheduled Tests Radiology* US Renal 09/13/24 [facility] Evaluation note* Diagnosis Disturbance of skin sensation- Primary documented in this encounter [facility]* Diagnosis Other osteoporosis without current pathological fracture- Primary [facility] Diagnosis Myofascial pain- Primary Mylagia and myositis, unspecified Implantable intrathecal infusion pump present documented in this encounter [facility] noteNo assessment information availableWKet[facility] Work Phone: Evaluation note* Diagnosis Other osteoporosis without current pathological fracture- Primary Primary osteoarthritis involving multiple joints Vitamin D deficiency Unspecified vitamin D deficiency documented [facility]* Diagnosis Other osteoporosis without current pathological fracture- Primary [facility] encounter [facility]* Diagnosis Other osteoporosis without current pathological fracture- Primary [facility] this [facility]* Diagnosis Low back pain, unspecified back pain laterality, unspecified chronicity, unspecified whether sciatica present- Primary Pain in both lower extremities Osteoporosis, unspecified osteoporosis type, unspecified pathological fracture presence [facility] this encounter [facility]* Diagnosis Onset Date Resolution Status Insulin dependent diabetes mellitus acute Tobacco abuse acute 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 [facility] Work Phone: Evaluation note* Diagnosis Onset [...] right ankle with fat layer exposed chronic [facility] Work Phone: Evaluation note* Diagnosis Onset [...] of distal end of left fibula noneactive [facility] Work Phone: Evaluation note* Diagnosis Osteoporosis, unspecified osteoporosis type, unspecified pathological fracture presence- [facility] Diagnosis Osteoporosis, unspecified osteoporosis type, unspecified pathological fracture presence- [facility] Diagnosis Onset Date Resolution Status Chronic [...] right ankle with fat layer exposed chronic [facility] Work Phone: Evaluation note* Diagnosis Onset [...] right ankle with fat layer exposed chronic [facility] Work Phone: Evaluation note* Diagnosis Onset [...] right ankle with fat layer exposed chronic [facility] Work Phone: Evaluation note* Diagnosis Onset [...] right ankle with fat layer exposed chronic [facility] Work Phone: Evaluation note* Diagnosis Other osteoporosis without current pathological fracture- [facility] Osteoporosis, unspecified osteoporosis type, unspecified pathological fracture presence- [facility] Diagnosis Onset Date Resolution Status [...] ankle with fat layer exposed chronic Hyperlipidemia [facility] Work Phone: Evaluation note* Diagnosis Onset [...] ankle with fat layer exposed chronic Hyperlipidemia [facility] Work Phone: Evaluation note* Diagnosis Onset [...] of tobacco use chron ic Hyperlipidemia chronic [facility] Work Phone: Evaluation note* Diagnosis Age-related osteoporosis without current pathological fracture- Primary Senile osteoporosis [facility] Narrative No data available for this section [facility] Hospital Discharge instructions No data available for this section [facility] Hospital Discharge instructions Additional Instructions 17 mm exophytic mass right kidney seen. Further workup advised as an outpatient. Increase furosemide to 60 mg once a day, or as advised by Dr. Palomares if different dosing desired.[facility] Work Phone: Note* TAVIA NORRIS MD: SIGN, VERIFY Event Display: EKG [ED AOH] - CV Authored Date: [id number] [facility] Progress note No data available for this section [facility] Reason for referral (narrative)No reason for referral information [facility] Work [facility]: Summary Purpose Family History No [...] Will No July 29 11:45pm Power of Salad Bar Clerk No July 29, 2021 11:45pm Advance Directive Response Recorded Date/ Time Advance Directives No July 27, 2016 2:54pm Living Will No July 29 10:45pm Power of Salad Bar Clerk No July 29, 2021 10:45pm Advance Directive Response Recorded Date/ Time Advance Directives No July 27, 2016 3:54pm Living Will Yes November 24, 2023 4 :30pm Power of Salad Bar Clerk No November 24, 2023 4:30pm Advance Directive Response Recorded Date/ Time Living Will No September 12, 2024 11:13pm Power of Salad Bar Clerk Yes September 12 11:13pm Name of Medical Power of Salad Bar Clerk jose armas September 12, 2024 11:13pm Living Will No September 27, 2024 1:40am Power of Salad Bar Clerk Yes September 27 1:40am Name of Medical Power of Salad Bar Clerk JOSE ARMAS September 27, 2024 1:40am Advance [...] PAIN MGT Ronaldo Villarreal MD [address] [place] [address] Referral ID Status Reason Start Date Expiration Date Visits Requested Visits Authorized [id number] Ref Not Required PCP Requested Referral 12/13/2021 [...] section and content) DATE CREATED AUTHOR 01/08/2018 [facility] DATE CREATED AUTHOR AUTHOR'S ORGANIZ ATION 2021 [facility] DATE CREATED AUTHOR AUTHOR'S ORGANIZ ATION 10/07/2023 [facility] DATE CREATED AUTHOR AUTHOR'S ORGANIZ ATION 07/30/2024 [facility] DATE CREATED AUTHOR AUTHOR'S ORGANIZ ATION 11/21/2024 [facility] DATE CREATED AUTHOR AUTHOR'S ORGANIZ ATION 01/02/2025 [facility] Source Comments (unrecognize d section and content) In the event this informatio n is protected by the Federal Confidentiality of Alcohol and Drug Abuse Patient Records regulations: The Federal rules restrict any use of the information to criminally investigate or prosecute any alcohol or drug abuse patient.[facility] the event this information is protected by the Federal Confidentiality of Alcohol and Drug Abuse Patient Records regulations: The Federal rules restrict any use of the information to criminally investigate or prosecute any alcohol or drug abuse patient.[facility] the event this information is protected by the Federal Confidentiality of Alcohol and Drug Abuse Patient Records regulations: The Federal rules restrict any use of the information to criminally investigate or prosecute any alcohol or drug abuse patient.[facility] the event this information is protected by the Federal Confidentiality of Alcohol and Drug Abuse Patient Records regulations: The Federal rules restrict any use of the information to criminally investigate or prosecute any alcohol or drug abuse patient.[facility] the event this information is protected by the Federal Confidentiality of Alcohol and Drug Abuse Patient Records regulations: The Federal rules restrict any use of the information to criminally investigate or prosecute any alcohol or drug abuse patient.[facility] the event this information is protected by the Federal Confidentiality of Alcohol and Drug Abuse Patient Records regulations: The Federal rules restrict any use of the information to criminally investigate or prosecute any alcohol or drug abuse patient.[facility] the event this information is protected by the Federal Confidentiality of Alcohol and Drug Abuse Patient Records regulations: The Federal rules restrict any use of the information to criminally investigate or prosecute any alcohol or drug abuse patient.[facility] the event this information is protected by the Federal Confidentiality of Alcohol and Drug Abuse Patient Records regulations: The Federal rules restrict any use of the information to criminally investigate or prosecute any alcohol or drug abuse patient.[facility] the event this information is protected by the Federal Confidentiality of Alcohol and Drug Abuse Patient Records regulations: The Federal rules restrict any use of the information to criminally investigate or prosecute any alcohol or drug abuse patient.[facility] Center[facility] the event this information is protected by the Federal Confidentiality of Alcohol and Drug Abuse Patient Records regulations: The Federal rules restrict any use of the information to criminally investigate or prosecute any alcohol or drug abuse patient.[facility] the event this information is protected by the Federal Confidentiality of Alcohol and Drug Abuse Patient Records regulations: The Federal rules restrict any use of the information to criminally investigate or prosecute any alcohol or drug abuse patient.[facility] the event this information is protected by the Federal Confidentiality of Alcohol and Drug Abuse Patient Records regulations: The Federal rules restrict any use of the information to criminally investigate or prosecute any alcohol or drug abuse patient.[facility] Center[facility] the event this information is protected by the Federal Confidentiality of Alcohol and Drug Abuse Patient Records regulations: The Federal rules restrict any use of the information to criminally investigate or prosecute any alcohol or drug abuse patient.[facility] Center[facility] the event this information is protected by the Federal Confidentiality of Alcohol and Drug Abuse Patient Records regulations: The Federal rules restrict any use of the information to criminally investigate or prosecute any alcohol or drug abuse patient.[facility] Center[facility] the event this information is protected by the Federal Confidentiality of Alcohol and Drug Abuse Patient Records regulations: The Federal rules restrict any use of the information to criminally investigate or prosecute any alcohol or drug abuse patient.[facility] Center[facility] the event this information is protected by the Federal Confidentiality of Alcohol and Drug Abuse Patient Records regulations: The Federal rules restrict any use of the information to criminally investigate or prosecute any alcohol or drug abuse patient.[facility] Center[facility] the event this information is protected by the Federal Confidentiality of Alcohol and Drug Abuse Patient Records regulations: The Federal rules restrict any use of the information to criminally investigate or prosecute any alcohol or drug abuse patient.[facility] Center[facility] the event this information is protected by the Federal Confidentiality of Alcohol and Drug Abuse Patient Records regulations: The Federal rules restrict any use of the information to criminally investigate or prosecute any alcohol or drug abuse patient.[facility] Center[facility] the event this information is protected by the Federal Confidentiality of Alcohol and Drug Abuse Patient Records regulations: The Federal rules restrict any use of the information to criminally investigate or prosecute any alcohol or drug abuse patient.[facility] CenterIn the event this information is protected by the Federal Confidentiality of Alcohol and Drug Abuse Patient Records regulations: The Federal rules restrict any use of the information to criminally investigate or prosecute any alcohol or drug abuse patient.[facility] Reason for Visit (unrecogniz ed section and content) Reason Comments Imm/Inj Specialty Diagnoses / Procedures Referred By Contac t Referred To Contact Neurology / HEMONC INFUSION Diagnoses // prolia Procedures DENOSUMAB INJECTION TREATMENT 30 MINUTES Funmilayo Pope MD [address] [place] [address] [facility] [address] [place] [address] Referral ID Status Reason Start Date Expiration Date V isits Requested Visits Authorized [id number] Authorized 07/27/2024 07/15/2025 1 2 Specialty Diagnoses / Procedures Referred By Contac t Referred To Contact HEMATOLOGY/ONCOLOGY Diagnoses Other osteoporosis without current pathological fracture Procedures DENOSUMAB INJECTION Prolia [id number] Funmilayo Pope MD [address] [place] [address] Joe [facility] [address] [place] [address] Referral ID Status Reason Start Date Expiration Date V isits Requested Visits Authorized [id number] Authorized 01/31/2022 03/26/2024 2 2 Reason Comments Medication Follow-up Reason Comments Patient Update NEW PHONE NUMBER Reason Comments Infusion Specialty Diagnoses / Procedures Referred By Contac t Referred To Contact Diagnoses Other osteoporosis without current pathological fracture Procedures reclast Funmilayo Pope MD [address] [place] [address] Joe Treat [facility] [address] [place] [address] Referral ID Status Reason Start Date Expiration Date V isits Requested Visits Authorized [id number] Authorized 09/12/2021 12/11/2021 99 99 Reason Comments Procedure Reason Comments Osteoarthritis Reason Comments Medication Authorization Prolia - NO PA REQ for medicare B Reason Comments Osteoporosis BMD on 08/07/2021 Reason Comments Orders Reason Comments APPROVED Prolia (Bath) APPROV ED [id number] 03.26.23 - 03.26.24 for 2 visits [facility] Medicare/Portal Reason Comments Results Reason Comments Appointment Reason Comments Medication Preauthorization Prolia- Bath Approved [id number] [facility] Medicare/Portal 07.15.24-07.15.25 2 visits Care Teams (unrecognized sec tion and content) Collection Advisor Relationship Specialty Start Date End Date Lana Arrieta MD [address] [place], [place] [id number] PCP - General Family Practice 12/28/20 Collection Advisor Relationship Specialty Start Date End Date Lana Arrieta MD [address] [place], [place] [id number] PCP - General Family Practice 12/28/20 Collection Advisor Relationship Specialty Start Date End Date Lana Arrieta MD [address] [place], [place] [id number] PCP - General Family Practice 12/28/20 Collection Advisor Relationship Specialty Start Date End Date Lana Arrieta MD [address] [place], [place] [id number] PCP - General Family Practice 12/28/20 Collection Advisor Relationship Specialty Start Date End Date Lana Arrieta MD [address] [place], [place] [id number] PCP - General Family Practice 12/28/20 Lauren Ruelas [address] [place] [address] [phone] Anesthesiology 01/31/22 Collection Advisor Relationship Specialty Start Date End Date Lana Arrieta MD [address] [place] [address] PCP - General Family Practice 12/28/20 [facility] [address] [place] [address] Anesthesiology 01/31/22 Collection Advisor Relationship Specialty Start Date End Date Lana Arrieta MD [address] [facility] [address] PCP - General Family Practice 12/28/[address] [address] Anesthesiology 01/31/22 Collection Advisor Relationship Specialty Start Date End Date Lana Arrieta MD [address] [place] [address] PCP - General Family Medicine 12/28/[address] [place] [address] Anesthesiology 01/31/22 Collection Advisor Relationship Specialty Start Date End Date Lana Arrieta MD [address] [place] [address] PCP - General Family Medicine 12/28/20 [facility] [address] [place] [address] Anesthesiology 01/31/22 Team Status: Active Member Role [...] Dr. Festus Luque MD Attending Provider Active Collection Advisor Relationship Specialty Start Date End Date Lana Arrieta MD [address] [place] [address] PCP - General Family Medicine 12/28/20 Lauren Ruelas [address] [place] [address] Anesthesiology 01/31/22 Collection Advisor Relationship Specialty Start Date End Date Lana Arrieta MD [address] [place] [address] PCP - General Family Medicine 12/28/20 Lauren Ruelas [address] [place], [place] [phone] Anesthesiology 01/31/22 Collection Advisor Relationship Specialty Start Date End Date Lana Arrieta MD [address] [place] [address] PCP - General Family Medicine 12/28/20 Lauren Ruelas [address] [place] [address] Anesthesiology 01/31/22 Collection Advisor Relationship Specialty Start Date End Date Lana Arrieta MD [address] [place], [place] [id number] PCP - General Family Medicine 12/28/20 Lauren Ruelas [address] [place] [phone] Anesthesiology 01/31/22 Collection Advisor Relationship Specialty Start Date End Date Lana Arrieta MD [address] [place] [address] PCP - General Family Medicine 12/28/20 Laruen Ruelas MD [address] [place] [address] [phone] Anesthesiology 01/31/22 Collection Advisor Relationship Specialty Start Date End Date Lana Arrieta MD [address] [place] [address] PCP - General Family Medicine 12/28/20 Lauren Ruelas MD [address] [place] [phone] Anesthesiology 01/31/22 Team Status: Inactive Member Role Status Dates Dr. Bianca Palomares MD Primary Care Provider, Referring Provider Active DECLAN LayM Attending Provider Active Team Status: Active Member Role Status Dates Dr. Bianca Palomares MD Primary Care Provider Active Dr. Chilango Laughlin MD Attending Provider, [facility] Provider Active Team Status: Inactive [...] Dr. Dino Pena MD Emergency Provider Active Collection Advisor Relationship Specialty Start Date End Date Lana Arrieta MD [address] [place] [address] PCP - General Family Medicine 12/28/20 Lauren Ruelas MD [address] [place] [phone] Anesthesiology 01/31/22 Collection Advisor Relationship Specialty Start Date End Date Lana Arrieta MD [address] [place] [address] PCP - General Family Medicine 12/28/20 Lauren Ruelas MD [address] [place] [phone] Anesthesiology 01/31/22 Collection Advisor Relationship Specialty Start Date End Date Lana Arrieta MD [address] [place] [address] PCP - General Family Medicine 12/28/20 Lauren Ruelas MD [address] [place] [phone] Anesthesiology 01/31/22 Team Status: Active Member Role [...] Member Role: Primary Care Physician Address: Address: [address] [place] [address] Care Team Related Persons Name: JOSE ARMAS Care Team Personnel Name: LANA ARRIETA MD Position: P4 Physician - Primary Care Med Service: Active Provider Member Role: Primary Care Physician Address: Address: [address] [place] [address] Care Team Related Persons Name: JOSE ARMAS [...] BE BASED ON THE PRIMARY CLINICAL RECORDS. What the [employer]rend [facility]. provides no warranty or guarantee of the accuracy or completeness of information in this document.
[2025-01-21] MEDS: Lactated Ringers 1,000 ML 15 ML IV (08:00)
--- NOTE | 2025-01-21 08:10 | PCM.PRE.AN2 ---
ASA Classification* ASA Classification ASA Classification: 3 Assessment & Plan Anesthesia* Anesthesia Assessment Anesthesia Assessment: Discussed sedation and/or anesthesia options, risks, benefits, and alternatives with patient/parents/legal guardian/POA. Questions invited. The patient/parents/legal guardian/POA seems to understand and agrees to proceed with anesthesia plan. Reviewed the physical assessment, medical history, allergy history and patient home medications list prior to surgery/procedure/anesthetic and documented any changes. Performed airway and anesthesia risk assessments. Anesthesia Type Anesthesia Type: MAC History Source History Obtained from:: Patient and Chart Anesthesia Focused Assessment* Temperature: 97.4 F Pulse Rate: 77 Blood Pressure: 127/54 Respiratory Rate: 18 Pulse Ox: 98 Oxygen Delivery Method: Room Air Airway Assessment Mouth opens: >3 cm Mallampati Score: IV Teeth Condition: Dentures (Patient has full upper and lower dentures. They are out.) Neck Range of motion (ROM): Limited ROM (Somewhat Decreased) Labs Anesthesia Preop lab: CBC WBC 10.5 K/mm3 (4.4-11.0) 09/27/24 01:47 09/27/24 RBC 4.84 M/mm3 (4.2-5.4) 09/27/24 01:47 09/27/24 Hgb 14.2 g/dL (12.0-15.0) 09/27/24 01:47 09/27/24 Hct 43.9 % (37-47) 09/27/24 01:47 09/27/24 Plt Count 214 K/mm3 (150-450) 09/27/24 01:47 09/27/24 CHEMISTRY Potassium 4.0 mmol/L (3.3-5.1) 09/27/24 01:47 09/27/24 Sodium 136 mmol/L (133-145) 09/27/24 01:47 09/27/24 BUN 17 mg/dL (4-19) 09/27/24 01:47 09/27/24 Creatinine 1.37 mg/dL (0.70-1.20) H 09/27/24 01:47 09/27/24 Glucose 254 mg/dL (70-99) H 09/27/24 01:47 09/27/24 POC Glucose 158 mg/dL (74-106) H 03/22/24 02:58 03/22/24 TSH 1.00 uIU/mL (0.358-3.74) 06/20/18 11:29 06/20/18 COAG PT 14.1 SECONDS (11.7-14.9) 03/10/19 05:37 03/10/19 Pre-Assessment Diagnosis/Proposed Procedure Planned Operative Procedure(s): EGD Anesthesia History Anesthesia History - schedule maker: Anesthesia History - schedule maker Hx Hospitalization No 01/20/25 11:52 Any Problems With Anesthesia No 01/30/24 12:09 Cholinesterase deficiency No 01/30/24 12:09 You/Your Family Experience No 01/30/24 12:09 fever (hyperthermia) with Relationship Recent Exposure to Contagious No 01/21/25 07:45 Disease Does patient have nerve No 01/20/25 11:52 stimulator Patient instructed to have device shut off --Does patient have Pacemaker No 01/21/25 07:45 or ICD? When Was Last Pacemaker Check QUESTION #4 FULL TEXT: You/Your Family Experience fever (hyperthermia) with Anesthesia Last Oral Intake Last Oral intake: Last Oral Intake NPO since 00:00 01/21/25 07:45 Meds taken in AM with sips of No 01/21/25 07:45 water? Meds patient instructed to take am of surgery PONV PONV - schedule maker: PONV - schedule maker Female Yes 01/20/25 11:52 HX of Motion Sickness No 01/20/25 11:52 HX of N/V After Surgery No 01/20/25 11:52 Non-Smoker No 01/20/25 11:52 Duration of Surgery greater No 01/20/25 11:52 than 60 minutes Number of Risk Factors 1 01/20/25 11:52 PONV Score Low Risk 01/20/25 11:52 Height & Weight Height & Weight: Anesthesia: Height & Weight Height 5 ft 3.5 in 01/21/25 07:45 Weight: 90.718 kg 01/21/25 07:45 Body Mass Index (BMI) 34.9 01/21/25 07:45 Respiratory Assessment Respiratory Assessment - schedule maker: Respiratory Tract Infection Hx - schedule maker Hx Respiratory Tract Infection No 01/30/24 12:09 STOP Sleep Apnea STOP Sleep Apnea - schedule maker: STOP Sleep Apnea - schedule maker Hx Hypertension Yes 01/20/25 11:52 Hx Sleep Apnea No 01/20/25 11:52 CPAP No 03/10/19 13:26 BIPAP No 03/10/19 05:48 Do you snore loudly (louder No 01/20/25 11:52 than talking or can be heard Do you often feel tired/ No 01/20/25 11:52 fatigued/ sleepy during daytime? Has anyone observed you stop No 01/20/25 11:52 breathing during sleep? STOP Results Negative 01/20/25 11:52 QUESTION #5 FULL TEXT : Do you snore loudly (louder than talking or can be heard through closed doors)? 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 Specify any problems Hx of Preganancy in last 3 Months Nurse Filling Out Transfusion & Questions: Date: Time: Patient unable to answer at Yes 01/20/25 11:52 this time (ie. confused, unrespo /Reproduction History /Reproductive History - schedule maker: /Reproductive Hx- schedule maker Hx Now No 01/20/25 11:52 Gestational Age (in weeks): EDC: Hx Hx Para Hx Section SAB No 01/20/25 11:52 Active Medications Active Medications: Current Medications Generic Name Dose Route Start Last Admin Trade Name Freq PRN Reason Stop Dose Admin Lactated Ringer's 1,000 mls @ 15 mls/hr 01/21/25 07:30 01/21/25 08:00 IV 15 mls/hr .Q48H NIURKA Administration PFSH Medical History History of pressure injury of skin Gastric reflux History of pain when walking Leg cramps Lives in snf Hx of fracture of hip Wears glasses Wears dentures Post-menopausal Depression Alcohol use Substance abuse Open wound Uses wheelchair Arthritis High cholesterol Restless legs Back pain Smoker Asthma Shortness of breath on exertion History of edema Tobacco abuse Insulin dependent diabetes mellitus 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 GERD (gastroesophageal reflux disease) Anxiety Schizophrenia Hyperlipidemia Insomnia Neuralgia and neuritis Spondylosis Mild asthma Cerebral vascular disease Hypertension Home Medications ?Medication ?Instructions ?Recorded ?Last Taken ?Type ondansetron HCl 4 mg tablet 4 mg PO Q6H PRN PRN Nausea 03/08/19 Unknown History prazosin 1 mg capsule 1 mg PO QHS 03/08/19 03/07/19 20:00 History albuterol sulfate 2.5 mg/3 mL 2.5 mg inhalation Q4H PRN SOB 07/29/21 Unknown History (0.083 %) solution for nebulization apixaban 5 mg tablet (Eliquis) 5 mg PO BID 07/29/21 01/17/25 History lurasidone 80 mg tablet (Latuda) 80 mg PO DAILY 07/29/21 Unknown History naloxegol 25 mg tablet (Movantik) 25 mg PO DAILY 07/29/21 Unknown History acetaminophen 325 mg tablet 650 mg PO Q6H PRN PRN fever or pain 12/18/22 Unknown History benzonatate 100 mg capsule 100 mg PO Q8H PRN cough 12/18/22 Unknown History bisacodyl 5 mg tablet,delayed 5 mg PO Q8H PRN PRN constipation 12/18/22 Unknown History release (Dulcolax (bisacodyl)) cholecalciferol (vitamin D3) 125 125 mcg PO DAILY 12/18/22 Unknown History mcg (5,000 unit) capsule diclofenac sodium 1 % topical gel 2 g topical Q8H PRN PRN pain 12/18/22 Unknown History epinephrine 0.3 mg/0.3 mL 0.3 mg IM Q5-15M PRN anaphylaxis 12/18/22 Unknown History injection, auto-injector (EpiPen) flash glucose sensor (FreeStyle 12/18/22 Unknown History Cynthia 2 Sensor kit) fluticasone fur. 200 mcg-umeclid 1 inh inhalation DAILY 12/18/22 Unknown History 62.5 mcg-vilant 25 mcg inhalat.powder (Trelegy Ellipta) guaifenesin 100 mg/5 mL oral liquid 200 mg PO Q4H PRN cough 12/18/22 Unknown History ipratropium 0.5 mg-albuterol 3 mg 3 ml inhalation BID PRN shortness 12/18/22 Unknown History (2.5 mg base)/3 mL nebulization of breath soln ipratropium 20 mcg-albuterol 100 1 puff inhalation Q6H PRN 12/18/22 Unknown History mcg/actuation mist for inhalation shortness of breath or wheezing (Combivent Respimat) ipratropium bromide 21 mcg (0.03 2 spray intranasal BID 12/18/22 Unknown History %) nasal spray lisinopril 2.5 mg tablet 2.5 mg PO DAILY 12/18/22 01/20/25 History loratadine 10 mg tablet (Claritin) 10 mg PO DAILY 12/18/22 Unknown History montelukast 10 mg tablet 10 mg PO DAILY 12/18/22 Unknown History polyethylene glycol 3350 17 17 g PO DAILY PRN constipation 12/18/22 Unknown History gram/dose oral powder (Miralax) duloxetine 60 mg capsule,delayed 60 mg PO BID 01/16/23 Unknown History release (Cymbalta) pregabalin 100 mg capsule 100 mg PO BID 01/16/23 Unknown History Lactobacillus rhamnosus GG 10 1 cap PO BID 11/27/23 Unknown History billion cell capsule (Culturelle) insulin lispro 100 unit/mL 1 sliding scale dose subcut TID 11/27/23 Unknown History subcutaneous pen (Humalog KwikPen (U-100) Insulin) loperamide 2 mg capsule 4 mg PO BID PRN loose stool 11/27/23 Unknown History (Anti-Diarrheal (loperamide)) carboxymethylcellulose sodium 0.5 1 drp EACH EYE BID 01/30/24 Unknown History % eye drops (Refresh Tears) cyclosporine 0.05 % eye drops in a 1 drp EACH EYE Q12H 01/30/24 Unknown History dropperette (Restasis) atenolol 50 mg tablet 50 mg PO QDAY 11/20/24 01/20/25 History clonazepam 0.5 mg tablet 0.5 mg PO 1500 PRN anxiety 11/20/24 Unknown History insulin glargine U-300 conc 300 100 unit subcut QAM 11/20/24 Unknown History unit/mL (1.5 mL) subcutaneous pen (Toujeo SoloStar U-300 Insulin) insulin glargine U-300 conc 300 90 unit subcut QHS 11/20/24 Unknown History unit/mL (3 mL) subcutaneous pen (Toujeo Max U-300 SoloStar) insulin lispro 100 unit/mL 50 unit subcut DAILY 11/20/24 Unknown History subcutaneous pen (Humalog KwikPen (U-100) Insulin) insulin lispro 100 unit/mL 54 unit subcut DINNER 11/20/24 Unknown History subcutaneous pen (Humalog KwikPen (U-100) Insulin) magnesium hydroxide 400 mg/5 mL 15 ml PO BID PRN constipation 11/20/24 Unknown History oral suspension (Milk of Magnesia) tirzepatide 7.5 mg/0.5 mL 7.5 mg subcut FR 11/20/24 01/08/25 History subcutaneous pen injector (Minesh) Held on 01/20/25. Instructions: ON HOLD FOR EGD 01/21/25 - LAST DOSE 01/08/25 atorvastatin 40 mg tablet 40 mg PO DAILY 01/20/25 Unknown History cranberry 500 mg capsule 500 mg PO DAILY 01/20/25 Unknown History famotidine 40 mg tablet 40 mg PO DAILY 01/20/25 Unknown History olanzapine 15 mg tablet 15 mg PO QHS 01/20/25 Unknown History Allergy/AdvReac Type Severity Reaction Status Date / Time apricot Allergy Unknown PT UNSURE Verified 01/21/25 07:41 OF REACTION BCG (Bacillus Allergy Unknown Other Verified 01/21/25 07:41 Calmette-Zohra) vacc bee venom protein (honey Allergy Unknown Other Verified 01/21/25 07:41 bee) (bee sting) corn Allergy Unknown Other Verified 01/21/25 07:41 Milk Containing Products Allergy Unknown Other Verified 01/21/25 07:41 (Dairy) peas Allergy Unknown Other Verified 01/21/25 07:41 tomato Allergy Unknown Other Verified 01/21/25 07:41 Iodinated Contrast Media Allergy Hives Verified 01/21/25 07:41 (Iodinated Contrast Media - IV Dye) amoxicillin trihydrate (From AdvReac Itching Verified 01/21/25 07:41 Augmentin) hydrocodone (From Vicodin) AdvReac Unknown Verified 01/21/25 07:41 potassium clavulanate (From AdvReac Itching Verified 01/21/25 07:41 Augmentin) shellfish derived AdvReac Itching Verified 01/21/25 07:41 Surgical History History of surgery History of History of tubal ligation History of hysterectomy History of cholecystectomy History of appendectomy S/P right rotator cuff repair Social History Smoking Status: Light Smoker (<10/day) Review of Systems (Anesthesia) ROS Narrative System reviewed and no additional complaints, except as documented. Physical Exam Resp clear to auscultation bilaterally
--- NOTE | 2025-01-21 08:10 | PCM.PRE.AN2 ---
ASA Classification* ASA Classification ASA Classification: 3 Assessment & Plan Anesthesia* Anesthesia Assessment Anesthesia Assessment: Discussed sedation and/or anesthesia options, risks, benefits, and alternatives with patient/parents/legal guardian/POA. Questions invited. The patient/parents/legal guardian/POA seems to understand and agrees to proceed with anesthesia plan. Reviewed the physical assessment, medical history, allergy history and patient home medications list prior to surgery/procedure/anesthetic and documented any changes. Performed airway and anesthesia risk assessments. Anesthesia Type Anesthesia Type: MAC History Source History Obtained from:: Patient and Chart Anesthesia Focused Assessment* Temperature: 97.4 F Pulse Rate: 77 Blood Pressure: 127/54 Respiratory Rate: 18 Pulse Ox: 98 Oxygen Delivery Method: Room Air Airway Assessment Mouth opens: >3 cm Mallampati Score: IV Teeth Condition: Dentures (Patient has full upper and lower dentures. They are out.) Neck Range of motion (ROM): Limited ROM (Somewhat Decreased) Labs Anesthesia Preop lab: CBC WBC 10.5 K/mm3 (4.4-11.0) 09/27/24 01:47 09/27/24 RBC 4.84 M/mm3 (4.2-5.4) 09/27/24 01:47 09/27/24 Hgb 14.2 g/dL (12.0-15.0) 09/27/24 01:47 09/27/24 Hct 43.9 % (37-47) 09/27/24 01:47 09/27/24 Plt Count 214 K/mm3 (150-450) 09/27/24 01:47 09/27/24 CHEMISTRY Potassium 4.0 mmol/L (3.3-5.1) 09/27/24 01:47 09/27/24 Sodium 136 mmol/L (133-145) 09/27/24 01:47 09/27/24 BUN 17 mg/dL (4-19) 09/27/24 01:47 09/27/24 Creatinine 1.37 mg/dL (0.70-1.20) H 09/27/24 01:47 09/27/24 Glucose 254 mg/dL (70-99) H 09/27/24 01:47 09/27/24 POC Glucose 158 mg/dL (74-106) H 03/22/24 02:58 03/22/24 TSH 1.00 uIU/mL (0.358-3.74) 06/20/18 11:29 06/20/18 COAG PT 14.1 SECONDS (11.7-14.9) 03/10/19 05:37 03/10/19 Pre-Assessment Diagnosis/Proposed Procedure Planned Operative Procedure(s): EGD Anesthesia History Anesthesia History - behavioral scientist: Anesthesia History - behavioral scientist Hx Hospitalization No 01/20/25 11:52 Any Problems With Anesthesia No 01/30/24 12:09 Cholinesterase deficiency No 01/30/24 12:09 You/Your Family Experience No 01/30/24 12:09 fever (hyperthermia) with Relationship Recent Exposure to Contagious No 01/21/25 07:45 Disease Does patient have nerve No 01/20/25 11:52 stimulator Patient instructed to have device shut off --Does patient have Pacemaker No 01/21/25 07:45 or ICD? When Was Last Pacemaker Check QUESTION #4 FULL TEXT: You/Your Family Experience fever (hyperthermia) with Anesthesia Last Oral Intake Last Oral intake: Last Oral Intake NPO since 00:00 01/21/25 07:45 Meds taken in AM with sips of No 01/21/25 07:45 water? Meds patient instructed to take am of surgery PONV PONV - behavioral scientist: PONV - behavioral scientist Female Yes 01/20/25 11:52 HX of Motion Sickness No 01/20/25 11:52 HX of N/V After Surgery No 01/20/25 11:52 Non-Smoker No 01/20/25 11:52 Duration of Surgery greater No 01/20/25 11:52 than 60 minutes Number of Risk Factors 1 01/20/25 11:52 PONV Score Low Risk 01/20/25 11:52 Height & Weight Height & Weight: Anesthesia: Height & Weight Height 5 ft 3.5 in 01/21/25 07:45 Weight: 90.718 kg 01/21/25 07:45 Body Mass Index (BMI) 34.9 01/21/25 07:45 Respiratory Assessment Respiratory Assessment - behavioral scientist: Respiratory Tract Infection Hx - behavioral scientist Hx Respiratory Tract Infection No 01/30/24 12:09 STOP Sleep Apnea STOP Sleep Apnea - behavioral scientist: STOP Sleep Apnea - behavioral scientist Hx Hypertension Yes 01/20/25 11:52 Hx Sleep Apnea No 01/20/25 11:52 CPAP No 03/10/19 13:26 BIPAP No 03/10/19 05:48 Do you snore loudly (louder No 01/20/25 11:52 than talking or can be heard Do you often feel tired/ No 01/20/25 11:52 fatigued/ sleepy during daytime? Has anyone observed you stop No 01/20/25 11:52 breathing during sleep? STOP Results Negative 01/20/25 11:52 QUESTION #5 FULL TEXT : Do you snore loudly (louder than talking or can be heard through closed doors)? 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 Specify any problems Hx of Preganancy in last 3 Months Nurse Filling Out Transfusion & Questions: Date: Time: Patient unable to answer at Yes 01/20/25 11:52 this time (ie. confused, unrespo /Reproduction History /Reproductive History - behavioral scientist: /Reproductive Hx- behavioral scientist Hx Now No 01/20/25 11:52 Gestational Age (in weeks): EDC: Hx Hx Para Hx Section SAB No 01/20/25 11:52 Active Medications Active Medications: Current Medications Generic Name Dose Route Start Last Admin Trade Name Freq PRN Reason Stop Dose Admin Lactated Ringer's 1,000 mls @ 15 mls/hr 01/21/25 07:30 01/21/25 08:00 IV 15 mls/hr .Q48H NIURKA Administration PFSH Medical History History of pressure injury of skin Gastric reflux History of pain when walking Leg cramps Lives in shelter Hx of fracture of hip Wears glasses Wears dentures Post-menopausal Depression Alcohol use Substance abuse Open wound Uses wheelchair Arthritis High cholesterol Restless legs Back pain Smoker Asthma Shortness of breath on exertion History of edema Tobacco abuse Insulin dependent diabetes mellitus 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 GERD (gastroesophageal reflux disease) Anxiety Schizophrenia Hyperlipidemia Insomnia Neuralgia and neuritis Spondylosis Mild asthma Cerebral vascular disease Hypertension Home Medications ?Medication ?Instructions ?Recorded ?Last Taken ?Type ondansetron HCl 4 mg tablet 4 mg PO Q6H PRN PRN Nausea 03/08/19 Unknown History prazosin 1 mg capsule 1 mg PO QHS 03/08/19 03/07/19 20:00 History albuterol sulfate 2.5 mg/3 mL 2.5 mg inhalation Q4H PRN SOB 07/29/21 Unknown History (0.083 %) solution for nebulization apixaban 5 mg tablet (Eliquis) 5 mg PO BID 07/29/21 01/17/25 History lurasidone 80 mg tablet (Latuda) 80 mg PO DAILY 07/29/21 Unknown History naloxegol 25 mg tablet (Movantik) 25 mg PO DAILY 07/29/21 Unknown History acetaminophen 325 mg tablet 650 mg PO Q6H PRN PRN fever or pain 12/18/22 Unknown History benzonatate 100 mg capsule 100 mg PO Q8H PRN cough 12/18/22 Unknown History bisacodyl 5 mg tablet,delayed 5 mg PO Q8H PRN PRN constipation 12/18/22 Unknown History release (Dulcolax (bisacodyl)) cholecalciferol (vitamin D3) 125 125 mcg PO DAILY 12/18/22 Unknown History mcg (5,000 unit) capsule diclofenac sodium 1 % topical gel 2 g topical Q8H PRN PRN pain 12/18/22 Unknown History epinephrine 0.3 mg/0.3 mL 0.3 mg IM Q5-15M PRN anaphylaxis 12/18/22 Unknown History injection, auto-injector (EpiPen) flash glucose sensor (FreeStyle 12/18/22 Unknown History Cynthia 2 Sensor kit) fluticasone fur. 200 mcg-umeclid 1 inh inhalation DAILY 12/18/22 Unknown History 62.5 mcg-vilant 25 mcg inhalat.powder (Trelegy Ellipta) guaifenesin 100 mg/5 mL oral liquid 200 mg PO Q4H PRN cough 12/18/22 Unknown History ipratropium 0.5 mg-albuterol 3 mg 3 ml inhalation BID PRN shortness 12/18/22 Unknown History (2.5 mg base)/3 mL nebulization of breath soln ipratropium 20 mcg-albuterol 100 1 puff inhalation Q6H PRN 12/18/22 Unknown History mcg/actuation mist for inhalation shortness of breath or wheezing (Combivent Respimat) ipratropium bromide 21 mcg (0.03 2 spray intranasal BID 12/18/22 Unknown History %) nasal spray lisinopril 2.5 mg tablet 2.5 mg PO DAILY 12/18/22 01/20/25 History loratadine 10 mg tablet (Claritin) 10 mg PO DAILY 12/18/22 Unknown History montelukast 10 mg tablet 10 mg PO DAILY 12/18/22 Unknown History polyethylene glycol 3350 17 17 g PO DAILY PRN constipation 12/18/22 Unknown History gram/dose oral powder (Miralax) duloxetine 60 mg capsule,delayed 60 mg PO BID 01/16/23 Unknown History release (Cymbalta) pregabalin 100 mg capsule 100 mg PO BID 01/16/23 Unknown History Lactobacillus rhamnosus GG 10 1 cap PO BID 11/27/23 Unknown History billion cell capsule (Culturelle) insulin lispro 100 unit/mL 1 sliding scale dose subcut TID 11/27/23 Unknown History subcutaneous pen (Humalog KwikPen (U-100) Insulin) loperamide 2 mg capsule 4 mg PO BID PRN loose stool 11/27/23 Unknown History (Anti-Diarrheal (loperamide)) carboxymethylcellulose sodium 0.5 1 drp EACH EYE BID 01/30/24 Unknown History % eye drops (Refresh Tears) cyclosporine 0.05 % eye drops in a 1 drp EACH EYE Q12H 01/30/24 Unknown History dropperette (Restasis) atenolol 50 mg tablet 50 mg PO QDAY 11/20/24 01/20/25 History clonazepam 0.5 mg tablet 0.5 mg PO 1500 PRN anxiety 11/20/24 Unknown History insulin glargine U-300 conc 300 100 unit subcut QAM 11/20/24 Unknown History unit/mL (1.5 mL) subcutaneous pen (Toujeo SoloStar U-300 Insulin) insulin glargine U-300 conc 300 90 unit subcut QHS 11/20/24 Unknown History unit/mL (3 mL) subcutaneous pen (Toujeo Max U-300 SoloStar) insulin lispro 100 unit/mL 50 unit subcut DAILY 11/20/24 Unknown History subcutaneous pen (Humalog KwikPen (U-100) Insulin) insulin lispro 100 unit/mL 54 unit subcut DINNER 11/20/24 Unknown History subcutaneous pen (Humalog KwikPen (U-100) Insulin) magnesium hydroxide 400 mg/5 mL 15 ml PO BID PRN constipation 11/20/24 Unknown History oral suspension (Milk of Magnesia) tirzepatide 7.5 mg/0.5 mL 7.5 mg subcut FR 11/20/24 01/08/25 History subcutaneous pen injector (Minesh) Held on 01/20/25. Instructions: ON HOLD FOR EGD 01/21/25 - LAST DOSE 01/08/25 atorvastatin 40 mg tablet 40 mg PO DAILY 01/20/25 Unknown History cranberry 500 mg capsule 500 mg PO DAILY 01/20/25 Unknown History famotidine 40 mg tablet 40 mg PO DAILY 01/20/25 Unknown History olanzapine 15 mg tablet 15 mg PO QHS 01/20/25 Unknown History Allergy/AdvReac Type Severity Reaction Status Date / Time apricot Allergy Unknown PT UNSURE Verified 01/21/25 07:41 OF REACTION BCG (Bacillus Allergy Unknown Other Verified 01/21/25 07:41 Calmette-Zohra) vacc bee venom protein (honey Allergy Unknown Other Verified 01/21/25 07:41 bee) (bee sting) corn Allergy Unknown Other Verified 01/21/25 07:41 Milk Containing Products Allergy Unknown Other Verified 01/21/25 07:41 (Dairy) peas Allergy Unknown Other Verified 01/21/25 07:41 tomato Allergy Unknown Other Verified 01/21/25 07:41 Iodinated Contrast Media Allergy Hives Verified 01/21/25 07:41 (Iodinated Contrast Media - IV Dye) amoxicillin trihydrate (From AdvReac Itching Verified 01/21/25 07:41 Augmentin) hydrocodone (From Vicodin) AdvReac Unknown Verified 01/21/25 07:41 potassium clavulanate (From AdvReac Itching Verified 01/21/25 07:41 Augmentin) shellfish derived AdvReac Itching Verified 01/21/25 07:41 Surgical History History of surgery History of History of tubal ligation History of hysterectomy History of cholecystectomy History of appendectomy S/P right rotator cuff repair Social History Smoking Status: Light Smoker (<10/day) Review of Systems (Anesthesia) ROS Narrative System reviewed and no additional complaints, except as documented. Physical Exam Resp clear to auscultation bilaterally
--- NOTE | 2025-01-21 08:30 | EGD_PTH ---
PATIENT: ELSA MERIDA LOC: EN U#:[id number] AGE/SX: 64/F ROOM: RE01/21/[address]: Dr. Fer Simmons DO : 1960 BED: DIS: 01/21/2025 SPEC #: [id number] RECD: 01/21/25 12:28 STATUS: WILLAM REQ #: [id number] GREGG: 01/21/25 08:[address]: Fer Simmons DEPT: SURGICAL PATHOLOGY RECD BY: [facility] ENTERED: 01/21/25 14:40 SP TYPE: EGD BIOPSY LYN DR: Dr. Mariah Atkinson MD Tissues: A - Duodenum, NOS B - Duodenum, NOS C - Gastric mucous membrane Procedures: Surgery Specimen Level IV HEADER OPERATION: EGD with biopsies PRE-OP DIAGNOSIS: Epigastric abdominal pain, reflux TISSUE SUBMITTED: A- Duodenum biopsy, B- Duodenal polyp biopsy, C- Gastric body biopsy MICROSCOPIC DIAGNOSIS A. Small intestine, duodenum, biopsy: * Small bowel mucosa with no pathologic change B. Small intestine, duodenum, polyp, biopsy: * Adenoma (low grade dysplasia) C. Gastric body, biopsy: * Oxyntic mucosa with mild chronic focal active inflammation (See note) Note: An immunnostain for Helicobacter pylori organisms is in progress and will be reported as an addendum MICROSCOPIC DESCRIPTION Slides are reviewed. GROSS DESCRIPTION A. Received in fixative is one container labeled with the patient's name and designated Duodenal biopsy. The specimen consists of three irregular fragments of light resendiz soft tissue that in aggregate measure 0.1 to 0.5 cm. The specimen is totally submitted in one cassette. B. Received in fixative is one container labeled with the patient's name and designated Duodenal polyp biopsy. The specimen consists of one irregular fragment of light resendiz soft tissue that measures 0.6 cm. The specimen is totally submitted in one cassette. C. Received in fixative is one container labeled with the patient's name and designated Gastric body biopsy. The specimen consists of three irregular fragments of light resendiz soft tissue, averaging 0.7 cm. The specimen is totally submitted in one cassette. Star 01/21/2025 CPT:56656u7
--- NOTE | 2025-01-21 08:30 | EGD_PTH ---
PATIENT: ELSA MERIDA LOC: EN U#:[id number] AGE/SX: 64/F ROOM: RE01/21/[address]: Dr. Fer Simmons DO : 1960 BED: DIS: 01/21/2025 SPEC #: [id number] RECD: 01/21/25 12:28 STATUS: WILLAM REQ #: [id number] GREGG: 01/21/25 08:[address]: Fer Simmons DEPT: SURGICAL PATHOLOGY RECD BY: [facility] [place] ENTERED: 01/21/25 14:40 SP TYPE: EGD BIOPSY LYN DR: Dr. Mariah Atkinson MD Tissues: A - Duodenum, NOS B - Duodenum, NOS C - Gastric mucous membrane Procedures: Surgery Specimen Level IV HEADER OPERATION: EGD with biopsies PRE-OP DIAGNOSIS: Epigastric abdominal pain, reflux TISSUE SUBMITTED: A- Duodenum biopsy, B- Duodenal polyp biopsy, C- Gastric body biopsy MICROSCOPIC DIAGNOSIS A. Small intestine, duodenum, biopsy: * Small bowel mucosa with no pathologic change B. Small intestine, duodenum, polyp, biopsy: * Adenoma (low grade dysplasia) C. Gastric body, biopsy: * Oxyntic mucosa with mild chronic focal active inflammation (See note) Note: An immunnostain for Helicobacter pylori organisms is in progress and will be reported as an addendum MICROSCOPIC DESCRIPTION Slides are reviewed. GROSS DESCRIPTION A. Received in fixative is one container labeled with the patient's name and designated Duodenal biopsy. The specimen consists of three irregular fragments of light ersendiz soft tissue that in aggregate measure 0.1 to 0.5 cm. The specimen is totally submitted in one cassette. B. Received in fixative is one container labeled with the patient's name and designated Duodenal polyp biopsy. The specimen consists of one irregular fragment of light resendiz soft tissue that measures 0.6 cm. The specimen is totally submitted in one cassette. C. Received in fixative is one container labeled with the patient's name and designated Gastric body biopsy. The specimen consists of three irregular fragments of light resendiz soft tissue, averaging 0.7 cm. The specimen is totally submitted in one cassette. Star 01/21/2025 CPT:64277x7
--- NOTE | 2025-01-21 08:36 | PCM.HP.STD ---
HPI - General General Date of Admission: 01/21/25 Date of Service: 01/21/25 HPI Narrative ELSA MERIDA, is a 64 F who presentsWANDMario MERIDA, is a 64 F who presents to the office today for establishment with [facility] for concerns of abdominal epigastric pain, heartburn, and constipation. She resides at [facility] due to history of stroke affecting mobility, speech, and right side. She reports severe heartburn first thing in the morning with burning she feels to the top of her throat even while on pantoprazole 40mg daily. She reports that food and laying down too soon make the pain worse. She is also reporting constipation. She has an implanted pain pump infusing morphine at a basal rate for chronic pain. Her facility has a bowel protocol but she has to wait 3 days before getting any medicine for relief. She denies difficulty chewing and swallowing, throat clearing, cough, sinus drainage, nausea, emesis, abdominal cramping, diarrhea, hematochezia, and melena. [facility] Medical History History of pressure injury of skin Gastric reflux History of pain when walking Leg cramps Lives in fci Hx of fracture of hip Wears glasses Wears dentures Post-menopausal Depression Alcohol use Substance abuse Open wound Uses wheelchair Arthritis High cholesterol Restless legs Back pain Smoker Asthma Shortness of breath on exertion History of edema Tobacco abuse Insulin dependent diabetes mellitus 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 GERD (gastroesophageal reflux disease) Anxiety Schizophrenia Hyperlipidemia Insomnia Neuralgia and neuritis Spondylosis Mild asthma Cerebral vascular disease Hypertension Home Medications ?Medication ?Instructions ?Recorded ?Last Taken ?Type ondansetron HCl 4 mg tablet 4 mg PO Q6H PRN PRN Nausea 03/08/19 Unknown History prazosin 1 mg capsule 1 mg PO QHS 03/08/19 03/07/19 20:00 History albuterol sulfate 2.5 mg/3 mL 2.5 mg inhalation Q4H PRN SOB 07/29/21 Unknown History (0.083 %) solution for nebulization apixaban 5 mg tablet (Eliquis) 5 mg PO BID 07/29/21 01/17/25 History lurasidone 80 mg tablet (Latuda) 80 mg PO DAILY 07/29/21 Unknown History naloxegol 25 mg tablet (Movantik) 25 mg PO DAILY 07/29/21 Unknown History acetaminophen 325 mg tablet 650 mg PO Q6H PRN PRN fever or pain 12/18/22 Unknown History benzonatate 100 mg capsule 100 mg PO Q8H PRN cough 12/18/22 Unknown History bisacodyl 5 mg tablet,delayed 5 mg PO Q8H PRN PRN constipation 12/18/22 Unknown History release (Dulcolax (bisacodyl)) cholecalciferol (vitamin D3) 125 125 mcg PO DAILY 12/18/22 Unknown History mcg (5,000 unit) capsule diclofenac sodium 1 % topical gel 2 g topical Q8H PRN PRN pain 12/18/22 Unknown History epinephrine 0.3 mg/0.3 mL 0.3 mg IM Q5-15M PRN anaphylaxis 12/18/22 Unknown History injection, auto-injector (EpiPen) flash glucose sensor (FreeStyle 12/18/22 Unknown History Cynthia 2 Sensor kit) fluticasone fur. 200 mcg-umeclid 1 inh inhalation DAILY 12/18/22 Unknown History 62.5 mcg-vilant 25 mcg inhalat.powder (Trelegy Ellipta) guaifenesin 100 mg/5 mL oral liquid 200 mg PO Q4H PRN cough 12/18/22 Unknown History ipratropium 0.5 mg-albuterol 3 mg 3 ml inhalation BID PRN shortness 12/18/22 Unknown History (2.5 mg base)/3 mL nebulization of breath soln ipratropium 20 mcg-albuterol 100 1 puff inhalation Q6H PRN 12/18/22 Unknown History mcg/actuation mist for inhalation shortness of breath or wheezing (Combivent Respimat) ipratropium bromide 21 mcg (0.03 2 spray intranasal BID 12/18/22 Unknown History %) nasal spray lisinopril 2.5 mg tablet 2.5 mg PO DAILY 12/18/22 01/20/25 History loratadine 10 mg tablet (Claritin) 10 mg PO DAILY 12/18/22 Unknown History montelukast 10 mg tablet 10 mg PO DAILY 12/18/22 Unknown History polyethylene glycol 3350 17 17 g PO DAILY PRN constipation 12/18/22 Unknown History gram/dose oral powder (Miralax) duloxetine 60 mg capsule,delayed 60 mg PO BID 01/16/23 Unknown History release (Cymbalta) pregabalin 100 mg capsule 100 mg PO BID 01/16/23 Unknown History Lactobacillus rhamnosus GG 10 1 cap PO BID 11/27/23 Unknown History billion cell capsule (Culturelle) insulin lispro 100 unit/mL 1 sliding scale dose subcut TID 11/27/23 Unknown History subcutaneous pen (Humalog KwikPen (U-100) Insulin) loperamide 2 mg capsule 4 mg PO BID PRN loose stool 11/27/23 Unknown History (Anti-Diarrheal (loperamide)) carboxymethylcellulose sodium 0.5 1 drp EACH EYE BID 01/30/24 Unknown History % eye drops (Refresh Tears) cyclosporine 0.05 % eye drops in a 1 drp EACH EYE Q12H 01/30/24 Unknown History dropperette (Restasis) atenolol 50 mg tablet 50 mg PO QDAY 11/20/24 01/20/25 History clonazepam 0.5 mg tablet 0.5 mg PO 1500 PRN anxiety 11/20/24 Unknown History insulin glargine U-300 conc 300 100 unit subcut QAM 11/20/24 Unknown History unit/mL (1.5 mL) subcutaneous pen (Toujeo SoloStar U-300 Insulin) insulin glargine U-300 conc 300 90 unit subcut QHS 11/20/24 Unknown History unit/mL (3 mL) subcutaneous pen (Toujeo Max U-300 SoloStar) insulin lispro 100 unit/mL 50 unit subcut DAILY 11/20/24 Unknown History subcutaneous pen (Humalog KwikPen (U-100) Insulin) insulin lispro 100 unit/mL 54 unit subcut DINNER 11/20/24 Unknown History subcutaneous pen (Humalog KwikPen (U-100) Insulin) magnesium hydroxide 400 mg/5 mL 15 ml PO BID PRN constipation 11/20/24 Unknown History oral suspension (Milk of Magnesia) tirzepatide 7.5 mg/0.5 mL 7.5 mg subcut FR 11/20/24 01/08/25 History subcutaneous pen injector (Minesh) Held on 01/20/25. Instructions: ON HOLD FOR EGD 01/21/25 - LAST DOSE 06/27/25 atorvastatin 40 mg tablet 40 mg PO DAILY 01/20/25 Unknown History cranberry 500 mg capsule 500 mg PO DAILY 01/20/25 Unknown History famotidine 40 mg tablet 40 mg PO DAILY 01/20/25 Unknown History olanzapine 15 mg tablet 15 mg PO QHS 01/20/25 Unknown History Allergy/AdvReac Type Severity Reaction Status Date / Time apricot Allergy Unknown PT UNSURE Verified 01/21/25 07:41 OF REACTION BCG (Bacillus Allergy Unknown Other Verified 01/21/25 07:41 Calmette-Zohra) vacc bee venom protein (honey Allergy Unknown Other Verified 01/21/25 07:41 bee) (bee sting) corn Allergy Unknown Other Verified 01/21/25 07:41 Milk Containing Products Allergy Unknown Other Verified 01/21/25 07:41 (Dairy) peas Allergy Unknown Other Verified 01/21/25 07:41 tomato Allergy Unknown Other Verified 01/21/25 07:41 Iodinated Contrast Media Allergy Hives Verified 01/21/25 07:41 (Iodinated Contrast Media - IV Dye) amoxicillin trihydrate (From AdvReac Itching Verified 01/21/25 07:41 Augmentin) hydrocodone (From Vicodin) AdvReac Unknown Verified 01/21/25 07:41 potassium clavulanate (From AdvReac Itching Verified 01/21/25 07:41 Augmentin) shellfish derived AdvReac Itching Verified 01/21/25 07:41 Surgical History History of surgery History of History of tubal ligation History of hysterectomy History of cholecystectomy History of appendectomy S/P right rotator cuff repair Social History Smoking Status: Former smoker (Patient quit smoking 2 and half months ago.) ROS Constitutional Constitutional: Denies fatigue, fever(s), poor appetite, weight gain or weight loss Gastrointestinal Gastrointestinal: Denies belching, bloating, change in bowel habits, change in stool character, chewing difficulty, coffee ground emesis, constipation, cramping, diarrhea, dyspepsia, dysphagia, early satiety, excessive flatus, fecal incontinence, heartburn, hematemesis, hematochezia, hemorrhoids, loose stools, melena, nausea, odynophagia, rectal bleeding, tenesmus, vomiting or weight changes Vital Signs Vital Signs Vital Signs: 01/21/25 07:45 01/21/25 07:45 01/21/25 08:23 Temperature 97.4 F L 97.4 F L Temperature Source Temporal Pulse Rate 77 77 Respiratory Rate 18 18 Respiratory Pattern Normal Blood Pressure 127/54 H 127/54 H Blood Pressure Mean 78 Blood Pressure Source Monitor Blood Pressure Position Semi-Fowlers Blood Pressure Location Right Arm Pulse Ox 98 98 Oxygen Delivery Method Room Air Room Air Weight Weight: 200 lb Body Mass Index (BMI) 34.9 Physical Exam Const alert, oriented x3, no apparent distress and healthy appearing General Appearance: cooperative GI normal to inspection, nondistended, normoactive bowel sounds, soft to palpation, non-tender and non-distended Percussion: normal to percussion Rectal Exam: deferred Results Lab / Micro Data Labs: Laboratory Results - last 24 hr 01/21/25 07:52: POC Glucose 279 H Assessment & Plan Assessment/Plan (1) Epigastric abdominal pain: (2) Constipation: QUALIFIERS: Constipation type: unspecified constipation type Qualified Code(s): K59.00 - Constipation, unspecified PLAN: Assessment and Plan Assessment and Plan (1) Esophageal reflux: Status: Chronic Qualifiers: Esophagitis presence: esophagitis presence not specified Qualified Code(s): K21.9 - Gastro-esophageal reflux disease without esophagitis (2) Epigastric abdominal pain: Status: Acute (3) Constipation: Status: Acute Qualifiers: Constipation type: unspecified constipation type Qualified Code(s): K59.00 - Constipation, unspecified Plan ELSA MERIDA, is a 64 F who presents to the office today for establishment with [facility] for concerns of abdominal epigastric pain, heartburn, and constipation. Constipation is most likely drug-induced. Discussed care plan with her. She has never had an EGD but her last colonoscopy was done in [place] around 2022. polyethylene glycol (Miralax) 17gm PO QHS x2wk psyllium husk 1tsp PO QAM w/8oz water prune juice change pantoprazole to omeprazole 40mg PO twice daily 30minutes before breakfast and dinner famotidine 40mg PO QHS schedule EGD consider colonoscopy office FU 1wk after EGD
--- NOTE | 2025-01-21 09:12 | PCM.POST.ANE ---
Anesthesia: Postop Eval I Current Vital Signs Temperature: 97.2 F Pulse Rate: 92 Blood Pressure: 126/67 Respiratory Rate: 16 Pulse Ox: 97 Oxygen Delivery Method: Room Air Assessment Airway patent: Yes Spontaneous unlabored respirations: Yes Mental status: Awake and Calm nausea: No Vomiting: No Anesthesia Complication: No Fluid Hydration Crystalloid volume administer (ml): 300 Total IV fluid infused: 300 Progress Note Anesthesia document: Postop Eval 1 completed: Yes
--- NOTE | 2025-01-21 09:18 | OP.CCLET_ITS ---
01/21/2025 Mariah Atkinson Md Re : Upper GI endoscopy procedure for Juliana Lam Dear Dr. Atkinson This procedure was performed on January. My impressions and recommendations are as follows: Impressions : - Z-line irregular, 39 cm from the incisors. Biopsied. - Erythematous mucosa in the gastric body. Biopsied. - A single duodenal polyp. Biopsied. - Erythematous duodenopathy. Biopsied. Recommendations : - Discharge patient to home. - Resume previous diet. - Continue present medications. - Await pathology results. My findings are described in the full procedure note, which is enclosed. If I can be of further assistance, please feel free to contact me at . Sincerely, Fer Simmons, 01/21/2025 9:17:41 AM This report has been signed electronically.
--- NOTE | 2025-01-21 09:18 | OP.EGD_ITS ---
Patient Name: Juliana Lam Procedure Date: 01/21/2025 8:38 AM Date of : 1960 Age: 64 Procedure: Upper GI endoscopy Indications: Epigastric abdominal pain, Heartburn, Suspected esophageal reflux Providers: Fer Simmons DO Referring MD: Mariah Atkinson Md Medicines: Monitored Anesthesia Care Patient Profile: This is a 64 year old female. Refer to note in patient chart for documentation of history and physical. Patient has symptoms of acute epigastric abdominal pain, chronic dyspepsia and acute nausea. Complications: No immediate complications. Procedure: Pre-Anesthesia Assessment: - Prior to the procedure, a History and Physical was performed, and patient medications and allergies were reviewed. The patient is competent. The risks and benefits of the procedure and the sedation options and risks were discussed with the patient. All questions were answered and informed consent was obtained. Patient identification and proposed procedure were verified by the physician in the pre-procedure area. Mental Status Examination: alert and oriented. Airway Examination: normal oropharyngeal airway and neck mobility. Respiratory Examination: clear to auscultation. CV Examination: normal. Prophylactic Antibiotics: The patient does not require prophylactic antibiotics. Prior Anticoagulants: The patient has taken no anticoagulant or antiplatelet agents except for NSAID medication. ASA Grade Assessment: II - A patient with mild systemic disease. After reviewing the risks and benefits, the patient was deemed in satisfactory condition to undergo the procedure. The anesthesia plan was to use monitored anesthesia care (MAC). Immediately prior to administration of medications, the patient was re-assessed for adequacy to receive sedatives. The heart rate, respiratory rate, oxygen saturations, blood pressure, adequacy of pulmonary ventilation, and response to care were monitored throughout the procedure. The physical status of the patient was re-assessed after the procedure. After obtaining informed consent, the endoscope was passed under direct vision. Throughout the procedure, the patient's blood pressure, pulse, and oxygen saturations were monitored continuously. The gastroscope was introduced through the mouth, and advanced to the fourth part of the duodenum. Small bowel enteroscopy was deemed necessary. The upper GI endoscopy was accomplished without difficulty. The patient tolerated the procedure well. Scope In: 8:56:51 AM Scope Out: 9:02:08 AM Total Procedure Duration Time 0 hours 5 minutes 17 seconds Findings: The Z-line was irregular and was found 39 cm from the incisors. Biopsies were taken with a cold forceps for histology. Patchy mildly erythematous mucosa without bleeding was found in the gastric body. Biopsies were taken with a cold forceps for histology. Verification of patient identification for the specimen was done. Biopsies were taken with a cold forceps for Helicobacter pylori testing. Verification of patient identification for the specimen was done. Estimated blood loss was minimal. A single 5 mm sessile polyp was found in the duodenal bulb. Biopsies were taken with a cold forceps for histology. Verification of patient identification for the specimen was done. Biopsies were taken with a cold forceps for histology. Patchy mildly erythematous mucosa without active bleeding and with no stigmata of bleeding was found in the entire duodenum. Biopsies were taken with a cold forceps for histology. Verification of patient identification for the specimen was done. Estimated blood loss was minimal. Impression: - Z-line irregular, 39 cm from the incisors. Biopsied. - Erythematous mucosa in the gastric body. Biopsied. - A single duodenal polyp. Biopsied. - Erythematous duodenopathy. Biopsied. Recommendation: - Discharge patient to home. - Resume previous diet. - Continue present medications. - Await pathology results. Procedure Code(s): --- Professional --- 17174, Small intestinal endoscopy, enteroscopy beyond second portion of duodenum, not including ileum; with biopsy, single or multiple CPT copyright 2021 [employer]. All rights reserved. The codes documented in this report are preliminary and upon arranger assembler review may be revised to meet current compliance requirements. Fer Simmons DO 01/21/2025 9:17:41 AM This report has been signed electronically. Number of Addenda: 0 Note Initiated On: 01/21/2025 8:38 AM
--- NOTE | 2025-01-21 09:18 | OP.EGD_ITS ---
Patient Name: Juliana Lam Procedure Date: 01/21/2025 8:38 AM Date of : 1960 Age: 64 Procedure: Upper GI endoscopy Indications: Epigastric abdominal pain, Heartburn, Suspected esophageal reflux Providers: Fer Simmons DO Referring MD: Mariah Atkinson Md Medicines: Monitored Anesthesia Care Patient Profile: This is a 64 year old female. Refer to note in patient chart for documentation of history and physical. Patient has symptoms of acute epigastric abdominal pain, chronic dyspepsia and acute nausea. Complications: No immediate complications. Procedure: Pre-Anesthesia Assessment: - Prior to the procedure, a History and Physical was performed, and patient medications and allergies were reviewed. The patient is competent. The risks and benefits of the procedure and the sedation options and risks were discussed with the patient. All questions were answered and informed consent was obtained. Patient identification and proposed procedure were verified by the physician in the pre-procedure area. Mental Status Examination: alert and oriented. Airway Examination: normal oropharyngeal airway and neck mobility. Respiratory Examination: clear to auscultation. CV Examination: normal. Prophylactic Antibiotics: The patient does not require prophylactic antibiotics. Prior Anticoagulants: The patient has taken no anticoagulant or antiplatelet agents except for NSAID medication. ASA Grade Assessment: II - A patient with mild systemic disease. After reviewing the risks and benefits, the patient was deemed in satisfactory condition to undergo the procedure. The anesthesia plan was to use monitored anesthesia care (MAC). Immediately prior to administration of medications, the patient was re-assessed for adequacy to receive sedatives. The heart rate, respiratory rate, oxygen saturations, blood pressure, adequacy of pulmonary ventilation, and response to care were monitored throughout the procedure. The physical status of the patient was re-assessed after the procedure. After obtaining informed consent, the endoscope was passed under direct vision. Throughout the procedure, the patient's blood pressure, pulse, and oxygen saturations were monitored continuously. The gastroscope was introduced through the mouth, and advanced to the fourth part of the duodenum. Small bowel enteroscopy was deemed necessary. The upper GI endoscopy was accomplished without difficulty. The patient tolerated the procedure well. Scope In: 8:56:51 AM Scope Out: 9:02:08 AM Total Procedure Duration Time 0 hours 5 minutes 17 seconds Findings: The Z-line was irregular and was found 39 cm from the incisors. Biopsies were taken with a cold forceps for histology. Patchy mildly erythematous mucosa without bleeding was found in the gastric body. Biopsies were taken with a cold forceps for histology. Verification of patient identification for the specimen was done. Biopsies were taken with a cold forceps for Helicobacter pylori testing. Verification of patient identification for the specimen was done. Estimated blood loss was minimal. A single 5 mm sessile polyp was found in the duodenal bulb. Biopsies were taken with a cold forceps for histology. Verification of patient identification for the specimen was done. Biopsies were taken with a cold forceps for histology. Patchy mildly erythematous mucosa without active bleeding and with no stigmata of bleeding was found in the entire duodenum. Biopsies were taken with a cold forceps for histology. Verification of patient identification for the specimen was done. Estimated blood loss was minimal. Impression: - Z-line irregular, 39 cm from the incisors. Biopsied. - Erythematous mucosa in the gastric body. Biopsied. - A single duodenal polyp. Biopsied. - Erythematous duodenopathy. Biopsied. Recommendation: - Discharge patient to home. - Resume previous diet. - Continue present medications. - Await pathology results. Procedure Code(s): --- Professional --- 84906, Small intestinal endoscopy, enteroscopy beyond second portion of duodenum, not including ileum; with biopsy, single or multiple CPT copyright 2021 [employer]. All rights reserved. The codes documented in this report are preliminary and upon water mechanic review may be revised to meet current compliance requirements. Fer Simmons DO 01/21/2025 9:17:41 AM This report has been signed electronically. Number of Addenda: 0 Note Initiated On: 01/21/2025 8:38 AM
--- NOTE | 2025-01-21 09:49 | PCM.POSTANE2 ---
Anesthesia Postop Eval I Sum Postop Eval Completion status Anesthesia document: Postop Eval 1 completed: Yes Anesthesia Postop Eval I Summary Anesthesia Postop Eval I Summary: Anesthesia Postop Eval I: Assessment Summary Airway patent Yes 01/21/25 09:13 [email or web address] Spontaneous unlabored Yes 01/21/25 09:13 [email or web address] respirations Mental status Awake,Calm 01/21/25 09:13 [email or web address] nausea No 01/21/25 09:13 [email or web address] Vomiting No 01/21/25 09:13 [email or web address] Anesthesia Postop Eval I: Fluid Summary Crystalloid volume administer 300 01/21/25 09:13 [email or web address] (ml) Colloids volume administered ( ml) Blood Product volume administered (ml) Total IV fluid infused 300 01/21/25 09:13 [email or web address] Anesthesia Postop Eval I: Summary Notes Anesthesia Complication No 01/21/25 09:13 [email or web address] Anesthesia Complication Comment: Post-operative progress note Anesthesia: Postop Eval II Evaluation Mental status: Awake and Calm Pain Level: 0 nausea: No Vomiting: No Complications Anesthesia Complication: No
== END 2025-01-21 10:02 | disposition home or self-care (01) ==
LOC: EN 07:20 → AC 07:22
PROVIDERS: PCP Hospitalist; Referring Provider Hospitalist; Visit Provider Internal Medicine Gastroenterology
PROC: 0DJ08ZZ Inspection of Upper Intestinal Tract, Via Natural or Artificial Opening Endoscopic (ICD-10-PCS; CPT 43235; principal; 2025-01-21 08:25)
DX: K59.00 Constipation, unspecified (principal); Z79.4 Long term (current) use of insulin; E11.40 Type 2 diabetes mellitus with diabetic neuropathy, unspecified; G89.29 Other chronic pain; K21.9 Gastro-esophageal reflux disease without esophagitis; I10 Essential (primary) hypertension; E78.00 Pure hypercholesterolemia, unspecified; Z79.01 Long term (current) use of anticoagulants; Z90.710 Acquired absence of both cervix and uterus; Z87.891 Personal history of nicotine dependence; Z96.82 Presence of neurostimulator; Z90.49 Acquired absence of other specified parts of digestive tract; Z98.51 Tubal ligation status; D13.2 Benign neoplasm of duodenum
CPT/HCPCS: 43239; 82962; 88305; J2405

== ENCOUNTER 2025-01-24 22:32 | Emergency (ER) | payer MEDICARE, MEDICAID, SELFPAY ==
[2025-01-24 22:34] VITALS: BP 118/65; RESP 20; TEMP 36.8; O2SAT 97
[2025-01-25] VITALS: BMI 35.5
--- NOTE | 2025-01-25 00:23 | CT_ITS ---
PROCEDURE: BRAIN/HEAD WITHOUT CONTRAST 01/25/2025 REASON FOR EXAM: FALL TECHNIQUE: BRAIN/HEAD WITHOUT CONTRAST Coronal and Sagittal reconstruction series were provided. One or more dose reduction techniques were used (e.g., Automated exposure control, adjustment of the mA and/or kV according to patient size, use of iterative reconstruction technique. 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 Arterial calcifications. No acute abnormal brain densities. No intracranial hemorrhage. No hydrocephalus or midline shift. No acute scalp or skull pathology. Bilateral lens extraction. Minimal sinus opacification. CT/Brain/Head without Contrast IMPRESSION: No acute intracranial findings. Reading Location: [place] [id number]
[2025-01-25 00:33] VITALS: BP 157/77; PULSE 64; RESP 14; O2SAT 92
--- NOTE | 2025-01-25 01:00 | RAD_ITS ---
PROCEDURE: PELVIS 1 OR 2 VIEWS 01/25/2025 REASON FOR EXAM: FALL TECHNIQUE: PELVIS 1 OR 2 VIEWS COMPARISON: No FINDINGS: Lower lumbar spine degeneration. Remote left femur injury status post orthopedic repair. Intact pelvic ring. RAD/Pelvis 1 or 2 Views IMPRESSION: Intact pelvic ring. Reading Location: [place] [id number]
--- NOTE | 2025-01-25 01:00 | RAD_ITS ---
EXAM: Right leg series CLINICAL HISTORY: Trauma COMPARISON: No TECHNIQUE: Frontal and lateral views FINDINGS: Acute, obliquely vertical fracture, proximal tibial meta diaphyseal junction, nondisplaced. Acute fibular neck fracture, nondisplaced. Soft tissue swelling, with small air component, anterior, proximal aspect of the lower leg. Old distal tibia and distal fibular fractures. No dislocation. RAD/Tibia & Fibula 2 Views IMPRESSION: Acute proximal right lower leg injury. Reading [facility]
--- OUTSIDE RECORDS SUMMARY | 2025-01-25 01:55 | XMS RPT_ITS | CCD ---
Author Organization [facility] Care Team Providers Care Bioprocess Engineer Name Role Phone Ebonie Sandra N Unavailable Rafaela Loomisica N Unavailable Karthikeyan Hall Unavailable Ebonie Sandra N Unavailable Ebonie Sandra N Unavailable Rafaela Loomisica N Unavailable JEREMY MACHADO Unavailable Unavai Karthikeyan Duff Unavailable Lana Arrieta MD Primary Care Provider LANA ARRIETA MD Primary Care Physician Lauren Ruelas Unavailable Lana Arrieta MD Primary Care Provider [phone] Lauren Ruelas Unavailable Lana Arrieta MD Primary Care Provider Lauren Ruelas Unavailable Dr. Chilango Laughlin Attending Provider [phone] Dr. Chilango Laughlin Other Provider [phone] Bianca Palomares Primary Care Provider UnavailDr. Bianca Sepulveda Referring Provider Unavailable ARMINDA Álvarez Attending Provider [phone] Dr. Kurt Justice Attending Provider [phone] ARMINDA Pardo Attending Provider Dr. Festus Luque Attending Provider [phone] Dr. Bianca Palomares Primary Care Provider Unavaila Dr. Bianca Hand Referring Provider Unavailable Dr. Chilango Laughlin Attending Provider [phone] Dr. Chilango Laughlin Other Provider [phone] ARMINDA Álvarez Attending Provider [phone] Dr. Kurt Justice Attending Provider [phone] Dr. Chilango Laughlin Attending Provider [phone] Dr. Chilango Laughlin Other Provider [phone] Marielle, Dr. Valenzuela Primary Care Provider Unavaila burke Palomares, Dr. Valenzuela Referring Provider Unavailable ARMINDA Álvarez Attending Provider [phone] Reshma, Dr. Hicks Attending Provider [phone] Dr. Chilango Laughlin Attending Provider [phone] Dr. Chilango Laughlin Other Provider [phone] Dr. Bianca Palomares Primary Care Provider Unavaila ble Marielle, Dr. Valenzuela Referring Provider Unavailable ARMINDA Álvarez Attending Provider [phone] Dr. Chilango Laughlin Attending Provider [phone] Dr. Chilango Laughlin Other Provider [phone] Marielle, Dr. Valenzuela Primary Care Provider Unavaila burke Palomares, Dr. Valenzuela Referring Provider Unavailable Dr. Chilango Laughlin Attending Provider [phone] Dr. Chilango Laughlin Other Provider [phone] Dr. Bianca Palomares Primary Care Provider Unavaila burke Palomares, Dr. Valenzuela Referring Provider Unavailable Berny SOARES, Lana Vargas Primary Care Provider Jessenia SOARES, Lauren Swift Unavailable MARIELLE SOARES, DR BIANCA Stevenson Primary Care Physician MAULIK العلي Attending Kang PALOMARES MD, DR BIANCA Stevenson Primary Care Unavailzac HYATT MD, DR MENSAH Attending LANA Wright MD Primary Care Unavailable MAULIK العلي Attending Kang PALOMARES MD, DR BIANCA Stevenson Primary Care Unavailzac Laughlin, Dr. Kee Attending Provider [phone] Qian, Dr. Kee Other Provider [phone] Marielle, Dr. Valenzuela Primary Care Provider Unavailmario Palomares, Dr. Valenzuela Referring Provider Unavailable Qian, Dr. Kee Attending Provider [phone] Qian, Dr. Kee Other Provider [phone] Marielle, Dr. Valenzuela Primary Care Provider Unavailmario Palomares, Dr. Valenzuela Referring Provider Unavailable Qian, Dr. Kee Attending Provider [phone] Qian, Dr. Kee Other Provider [phone] Marielle, Dr. Valenzuela Primary Care Provider Unavailmario Palomares, Dr. Valenzuela Referring Provider Sky Arrieta MD, Lana Vargas Primary Care Provider [phone] ISMAEL SOARES, MARIAH DANIELS Primary Care Physician Becky SOARES, Dr. Sun Attending Provider Dr. Dino Pena MD Emergency Provider Ismael SOARES, Dr. Mariah Daniels Primary Care [facility] er Dr. Gregorio Cochran DO Emergency Provider MAULIK العلي DO Attending MARIAH East MD Primary Care Unavail able REFERRING, PHY WO ID Attending DR BIANCA Ansari MD Primary Care Rich Atkinson MD, Dr. Mariah Daniels Primary Care [facility] er Dr. Gregorio Cochran DO Attending Provider Ismael SOARES, Dr. Mariah Daniels Referring Provider Gianna Mi Attending Provider [phone] Rahsaan Attending Provider Friend , Dr. Monroe Other Provider [phone] Gudla, Bianca Primary Care Unavailable Gudla, Bianca Referring Unavailable Karthikeyan Grove Attending Unavailable Fer Simmons Consulting Unavailable Fer Simmons Attending Unavailable Morehart, Mariah Frances Referring Unavailabl e Morehart, Mariah Frances Primary Care Unavailabl e Dino Pena Attending Unavailable Morehart, Mariah Frances Primary Care Unavailabl e BasaliJasonman Attending Unavailable Basali, Ayman Referring Unavailable Gudla, Bianca Primary Care Unavailable FriendFer Attending Unavailable Morehart, Mariah Frances Primary Care Unavailabl e Morehart, Mariah Frances Referring Unavailabl e [place] Attending Unavailable Gudla, Bianca Primary Care Unavailable Gudla, Bianca Referring Unavailable Gudla, Bianca Primary Care Unavailable Karthikeyan Grove Attending Unavailable Beata Liao Attending Unavailable Gudla, Bianca Primary Care Unavailable Gudla, Bianca Referring Unavailable Gianna Nelson Attending Unavailable Morehart, Mariah Frances Primary Care Unavailabl e Morehart, Mariah Frances Referring Unavailabl e Morehart, Mariah Frances Primary Care Unavailabl e Gregorio Cochran Attending Unavailable ReOswaldo porter Attending Unavailable Gudla, Bianca Primary Care Unavailable Gudla, Bianca Primary Care Unavailable Gudla, Bianca Referring Unavailable Karthikeyan Grove Attending Unavailable LANA ARRIETA Primary Care Unavailable FUNMILAYO POPE Referring Unavailable Allergies Allergy Classification Reported Allergen(s) Allergy Type Date of Onset Reaction(s) Facility (20 sources) apricot extract; Translations: [APRICOT] Drug Allergy 5 PT UNSURE OF REACTION [facility] Repository (20 sources) lactose; Translations: [LACTOSE] Drug Allergy 0 [facility] Repository (20 sources) levoFLOXacin; Translations: [LEVOFLOXACIN] Drug Allergy 5 Intolerance [facility] Repository (20 sources) morphine; Translations: [MORPHINE] Drug Allergy 4 Itching [facility] Repository (20 sources) NSAIDs; Translations: [NSAIDS (NON-STEROIDAL ANTI-INFLAMMATO RY DRUG)] Propensity to adverse reactions to drug (disorder) 7 GI Upset [facility] Repository (20 sources) oxyCODONE; Translations: [OXYCODONE] Drug Allergy 8 Intolerance [facility] Repository (20 sources) Phenothiazine; Translations: [PHENOTHIAZINES ] Propensity to adverse reactions to drug (disorder) 4 [facility] Repository (20 sources) predniSONE; Translations: [PREDNISONE] Drug Allergy 5 Unknown [facility] Repository (20 sources) promethazine; Translations: [PROMETHAZINE HCL] Drug Allergy 7 Itching [facility] Repository (20 sources) Quinolones (Antibiotic); Translations: [QUINOLONES] Propensity to adverse reactions to drug (disorder) 4 [facility] Repository (20 sources) magda leaf allergenic extract; Translations: [MAGDA] Drug Allergy 5 [facility] Rep[facility] (20 sources) sulindac; Translations: [SULINDAC] Drug Allergy 5 Mental Status Change [facility] Repository (20 sources) traMADol; Translations: [TRAMADOL] Drug Allergy 5 Itching [facility] Repository (3 sources) OTHER; Translations: [OTHER] Propensity to adverse reactions (disorder) 5 AOF [facility] Repository (20 sources) OPIOIDS - MORPHINE ANALOGUES; Translations: [OPIOIDS - MORPHINE ANALOGUES] Propensity to adverse reactions to drug (disorder) 4 [facility] Repository (20 sources) CLEANING SUPPLIES [Other] Propensity to adverse reactions 5 [facility] Work Phone: (20 sources) IVP CONTRAST [Other] Propensity to adverse reactions 5 Intolerance [facility] Work Phone: (7 sources) Bee/Wasp/Ant venom Allergy to substance Anaphylaxis (disorder) [facility] (10 sources) corn extract; Translations: [corn] Drug Allergy 5 Eruption of skin (disorder) [facility] (7 sources) HYDROmorphone; Translations: [hydromorphone] Drug Allergy [facility] (7 sources) Promethazine; Translations: [promethazine] Drug Allergy [facility] (7 sources) Purified Protein Derivative of Tuberculin; Translations: [tuberculin purified protein derivative] Drug Allergy Lactose intolerance [facility] (7 sources) Milk Products Food allergy Eruption of skin (disorder) [facility] (7 sources) Tomatoes Food allergy [facility] (7 sources) Apricots Food allergy Eruption of skin (disorder) [facility] (10 sources) Peas; Translations: [peas] Food allergy 5 Eruption of skin (disorder) [facility] (16 sources) Amoxicillin; Translations: [amoxicillin trihydrate] Drug Allergy 9 [facility] (15 sources) HYDROcodone Drug Allergy 9 Unknown [facility] (16 sources) Shellfish; Translations: [shellfish derived] Propensity to adverse reactions 9 [facility] (16 sources) Iodinated Contrast Media; Translations: [Iodinated Contrast Media] Allergy to substance 9 Hives [facility] (16 sources) potassium clavulanate; Translations: [potassium clavulanate] Propensity to adverse reactions 9 [facility] (2 sources) tomato allergenic extract Drug Allergy 5 Other [facility] (3 sources) BCG (Bacillus Calmette-Zohra ) vacc; Translations: [BCG (Bacillus Calmette-Zohra ) vacc] Allergy to substance 4 Other [facility] (2 sources) bee venom protein (honey bee) Allergy to substance 5 Other [facility] (2 sources) Milk Containing Products (Dairy) Allergy to substance 5 Other [facility] (1 source) HYDROcodone Drug Allergy 5 [facility] (1 source) tomato allergenic extract Drug Allergy 5 [facility] (1 source) Milk Containing Products (Dairy) Drug allergy (disorder) 5 [facility] (1 source) bee venom protein (honey bee) Drug allergy (disorder) 5 [facility] Repository Medications Current Medications Medication Drug Class(es) [...] jessica th every 8 hours as needed. albuterol 0.83 mg/ml inhalation solution (20 sources) beta2-Adrenergic Agonist Start: 2 take 2.5 mg by inhalation every four [...] spray (20 sources) Anticholinergic, beta2-Adrenergic Agonist Start: 023 take 20-100 ug by inhalation every six [...] ucted as directed. BID, prn for SOB aluminum hydroxide 80 mg/ml / magnesium hydroxide 80 mg/ml / simethicone 8 mg/ml oral suspension (20 sources) Start: 12-18-2022 take 1 mL by mouth every three [...] Take 10 mL by mouth as directed. apixaban 5 mg oral tablet (20 sources) Factor Xa Inhibitor Start: 07-29-2021 take 1 tablet by mouth twice daily [...] sources) Atypical Antipsychotic Start: 10-31-19 End: 02-01-20 take 1 tablet by mouth once aripiprazole (ABILIFY) 30 mg ORAL tablet Take 1 tablet by mouth once daily. Per Dr. Ley. 0 10/30/2010 01/31/2022 Discontinued Comment on above: Take 1 tablet by jessica th once daily. Per Dr. Ley. atenolol 50 mg oral tablet (20 sources) beta-Adrenergic Alem Start: 11-21-19 take 1 tablet by mouth once daily Atenolol 50 mg tablet Active 50 mg PO daily November 20, 2024 12:00am Start: 12-18-2022 End: 11-20-2024 take 1 tablet by mouth once daily Atenolol 25 mg tablet Discontinued 25 mg PO DAILY December 18, 2022 12:00am November 20, 2024 3:07pm Comment on above: Take 25 mg by mouth every morning. atorvastatin 40 mg oral tablet (20 sources) HMG-CoA Reductase Inhibitor Start: take 1 tablet by mouth once daily Atorvastatin 40 mg tablet Active 40 mg PO DAILY January 20, 2025 12:00am Start: 12-18-2022 End: 11-20-2024 Atorvastatin 80 mg tablet Discontinued 40 mg PO AT BEDTIME December 18, 2022 1:20pm November 20, 2024 3:19pm cholesterol Start: 12-18-2022 take 40 mg by mouth at bedtime Atorvastatin Active 40 MG PO AT BEDTIME December 18, 2022 1:20pm Start: 03-23-2016 End: 12-18-2022 take 1 tablet by mouth at bedtime Atorvastatin 80 MG tablet Discontinued 80 mg PO AT BEDTIME July 25, 2016 1:00am December 18, 2022 1:46pm cholesterol Comment on above: Take 1 tablet by jessica th once daily. benzonatate 100 mg oral capsule (20 sources) Non-narcotic Antitussive Start: take 1 capsule by mouth every eight hours as needed for cough Benzonatate 100 mg capsule Active 100 mg PO Q8H as needed for cough December 18, 2022 12:00am take 1 capsule by mo uth every eight hours as needed benzonatate (TESSALON PERLES) 100 mg capsule Take 100 mg by mouth three times daily as needed for cough. Active Comment on above: Take 100 mg by mouth three times daily as needed for cough. Blood Sugar Diagnostic, Drum (ACCU-CHEK COMPACT TEST) [...] Blood-Glucose Sensor (FREESTYLE ELISA 3 SENSOR) vivek (12 sources) Blood-Glucose Se nsor (FREESTYLE ELSIA 3 SENSOR) vivek Active Blood-Glucose Se nsor (FREESTYLE ELISA 3 SENSOR) vivek canagliflozin 300 mg oral tablet (20 sources) [...] 5 mg/ml ophthalmic solution (20 sources) Start: 024 Carboxymethylcellulose Sodiu m (Refresh Tears) 0.5 % [...] capsule (20 sources) Vitamin D Start: 12-19-19 take 1 capsule by mouth once daily [...] 2022 1:27pm take 1 tablet by jessica th once daily cholecalciferol (VITAMIN D-3) 50 mcg [...] Quantity: 14.0 Unit: EA Repeat number: 1 clonazePAM 0.5 mg oral tablet (1 source) Benzodiazepine Start: 11-21-19 25 Clonazepam 0.5 mg tablet Active 0.5 mg PO 1500 as needed for anxiety November 20, 2024 12:00am cloZAPine 100 mg oral tablet (6 sources) Atypical Antipsychotic Start: 04-22-20 End: 02-01-20 22 take 3 tablets by mouth once daily at bedtime cloZAPine (CLOZARIL) 100 mg tablet Take 3 tablets by mouth daily at bedtime. Per psychiatry. 0 04/22/2014 01/31/2022 Discontinued Comment on above: Take 3 tablets by mo uth daily at bedtime. Per psychiatry. collagenase 0.25 unt/mg topical ointment (12 sources) Collagen-specific Enzyme collagenase (SANTYL) ointment Apply to affected area once daily. Apply to right ankle diabetic ulcer topically every night monitor for DM ulcer Active Comment on above: Apply to affected ar ea once daily. Apply to right ankle diabetic ulcer topically every night monitor for DM ulcer COMPOUNDED PRESCRIPTION (20 sources) [...] %, Bupivacaine 5 %, Amitriptyline 2 % Cranberry (1 source) Non-Standardized Food Allergenic Extract, Non-Standardized Plant Allergenic Extract Start: 025 take 1 capsule by mouth once daily Cranberry 500 mg capsule Active 500 mg PO DAILY January 20, 2025 12:00am administer with a meal cycloSPORINE 0.5 mg/ml ophthalmic suspension (20 sources) Calcineurin Inhibitor Immunosuppressant Start: 022 Cyclosporine (Restasis) 0.05 % Dropperette Active 1 DRP EACH EYE Q12H July 29, 2021 1:00am Start: 02-01-2017 take 1 drop(s) into the eye(s) twice daily cycloSPORINE (RESTASIS) 0.05 % ophthalmic emulsion 1 Drop twice daily. 0 02/01/2017 Active Comment on above: 1 Drop twice daily. Cyclosporine (Restasis) 0.05 % dropperette (2 sources) Start: 01-30-2024 Cyclosporine (Restasis) 0.05 % dropperette [...] Start: 03-23-2016 DEXILANT 60 MG CPDR DEXLANSOPRAZOLE [id number] Karthikeyan Hall Comment on above: Take by [...] dulaglutide (TRULICITY) 3 mg/0.5 mL pen injector (12 sources) inject 3 mg by subcutaneous injection [...] sources) Serotonin and Norepinephrine Reuptake Inhibitor Start: take 1 capsule by mouth twice daily Duloxetine (Cymbalta) 60 mg capsule,delayed release(DR/EC) Active 60 mg PO TWICE A DAY January 16, 2023 12:00am Start: 03-08-2019 End: 12-18-2022 take 2 capsules by mouth once daily Duloxetine 60 MG capsule Discontinued 120 mg PO DAILY March 08, 2019 12:00am December 18, 2022 1:30pm depression Start: 03-08-2019 End: 12-18-2022 take 120 mg by mouth once daily Duloxetine Discontinue d 120 MG PO DAILY March 08, 2019 12:00am December 18, 2022 1:30pm Comment on above: Take 60 mg by mouth twice daily. emollient combination no.60 gel (12 sources) emollient combin ation no.60 gel Apply to affected area. Active emollient combin ation no.60 gel Apply to affected area. 0 Active Comment on above: Apply to affected ar ea. empagliflozin 25 mg oral tablet (6 sources) Sodium-Glucose Cotransporter 2 Inhibitor Start: 02-01-2017 End: 01-31-2022 empagliflozin (JARDIANCE) 25 mg tab Take by mouth. 0 02/01/2017 01/31/2022 Discontinued Comment on above: Take by mouth. [id number] 0.3 ml EPINEPHrine 1 mg/ml auto-injector (20 [...] tablet (6 sources) Serotonin Reuptake Inhibitor Start: End: take 1 tablet by mouth once daily at bedtime escitalopram oxalate (LEXAPRO) 20 mg tablet Take 1 tablet by mouth daily at bedtime. Per psychiatry. 0 11/17/2013 01/31/2022 Discontinued Comment on above: Take 1 tablet by jessica daily at bedtime. Per psychiatry. esomeprazole 40 mg delayed release oral capsule (6 sources) Proton Pump Inhibitor Start: End: take 1 capsule by mouth once daily before breakfast esomeprazole 40 mg capsule Indications: Esophageal reflux , Chest pain, unspecified Take 1 capsule by mouth daily before breakfast. Selena's Docudose. 30 capsule 11 11/11/2013 01/31/2022 Discontinued Comment on above: Take 1 capsule by [facility] daily before breakfast. Hanson's Docudose. famotidine 40 mg oral tablet (1 source) Histamine-2 Receptor Antagonist Start: take 1 tablet by mouth once daily Famotidine 40 mg tablet Active 40 mg PO DAILY January 20, 2025 12:00am Flash Glucose Sensor (Freestyle Elisa 2 Sensor) kit (13 sources) Start: Flash Glucose Sensor (Freestyle Elisa 2 Sensor) kit Active 0 .Route December 17, 2022 11:00pm As directed Start: 12-18-2022 Flash Glucose Sensor (Freestyle Elisa 2 Sensor) kit Active 0 .Route December 18, 2022 12:00am As directed Start: 12-18-2022 Flash Glucose Sensor (Freestyle Elisa 2 Sensor) kit Active 0 .ROUTE Ana Laura 6th, 2023 12:00am As directed FLUoxetine 20 mg oral capsule (20 sources) Serotonin Reuptake Inhibitor Start: 02-01-2017 take 1 capsule by mouth once daily FLUoxetine (PROZAC) 20 mg capsule Take 1 capsule by mouth once daily. 0 02/01/2017 Active Comment on above: Take 1 capsule by [facility] once daily. Fluticasone-Umecli din-Vilanter (13 sources) Start: 12-18-2022 Fluticasone-Um ecl idin-Vilanter (Trelegy Ellipta) 200-62.5-25 mcg blister with device Active 1 NMA INHALATION DAILY December 18, 2022 12:00am Start: 12-18-2022 Fluticasone-Um eclidin-Vilanter (Trelegy Ellipta) 200-62.5-25 mcg blister with device Active 1 INH INHALATION DAILY December 17, 2022 11:00pm Start: 12-18-2022 Fluticasone-Um eclidin-Vilanter (Trelegy Ellipta) 200-62.5-25 mcg blister with device Active 1 INH INHALATION DAILY December 18, 2022 12:00am hvckvurqmtj-losaptdtw-ijhusi er (TRELEGY ELLIPTA) 200-62.5-25 mcg inhalation powder (12 sources) take 1 puff(s) by inhalation once daily ndzgmcogaqq-ntyrpgtey-looqetxs (TRELEGY ELLIPTA) 200-62.5-25 mcg inhalation powder Inhale 1 Puff as instructed once daily. Active take 1 puff(s) by in halation once daily nksjvhmojut-ihqwrykij-whrnmssa (TRELEGY ELLIPTA) 200-62.5-25 mcg inhalation powder Inhale 1 Puff as instructed once daily. 0 Active Comment on above: Inhale 1 Puff as ins tructed once daily. Jessi-Tussin Expectorant (7 sources) Start: 11-22-2020 take [...] 19, 2018 1:00am March 11, 2019 3:24pm congestion Start: 02-01-2017 take 2 tablets by mo ut twice daily guaiFENesin (MUCINEX) 600 mg 12 hr tablet Take 2 tablets by mouth twice daily. 0 02/01/2017 Active Comment on above: Take 2 tablets by mo ut twice daily. Take 10 mL by mouth every 4 hours as needed for cough. 3 ml insulin aspart, human 100 unt/ml pen injector (20 sources) Insulin Analog Start: 04-28-2022 NovoLOG FlexPen 100 units/mL injectable solution 0 [...] pen injector (20 sources) Insulin Analogue Start: 1 inject 1 dose by subcutaneous injection once [...] 08, 2019 12:00am March 11, 2019 3:35pm diabetes Start: 03-23-2016 TRESIBA FLEXTO UCH 100 UNIT[facility] [id number] Karthikeyan Hall Start: 03-23-2016 TRESIBA FLEXTO UCH 100 UNIT/ML [facility] [id number] Karthikeyan Hall 1.5 ml insulin glargine 300 [...] 1:00am November 22, 2022 9:17am Start: 08-19-2014 insulin glargi ne (LANTUS SOLOSTAR) 100 unit/mL (3 mL) inpn Indications: Type II or unspecified type diabetes mellitus without mention of complication, uncontrolled Inject 55 Units subcutaneously daily at bedtime. 10 Pen 11 08/19/2014 Active Start: 08-19-2014 insulin glargi ne (LANTUS SOLOSTAR) 100 unit/mL (3 mL) inpn Indications: Type II or unspecified type diabetes mellitus without mention of complication, uncontrolled Inject 55 Units subcutaneously daily at bedtime. 10 Pen 11 08/19/2014 Active Comment on above: Inject 55 Units subc utaneously daily at bedtime. Insulin Glargine U-300 Conc (Toujeo Max U-300 Solostar) 300 unit/mL (3 mL) insulin pen (3 sources) Start: 11-20-2024 Insulin Glargine U-300 Conc (Toujeo Max U-300 Solostar) 300 unit/mL (3 mL) insulin pen Active 90 U SC AT BEDTIME November 20, 2024 3:18pm Start: 01-30-2024 End: 11-20-2024 Insulin Glargine U-300 Conc (Toujeo Max U-300 Solostar) 300 unit/mL (3 mL) insulin pen Discontinued 100 U SC TWICE A DAY January 30, 2024 12:00am November 20, 2024 3:20pm Start: 01-30-2024 Insulin Glargi ne U-300 Conc (Toujeo Max U-300 Solostar) 300 unit/mL (3 mL) insulin pen Active 100 U SC TWICE A DAY January 30, 2024 12:00am Insulin Glargine U-300 Conc (Toujeo Solostar U-300 Insulin) 300 unit/mL (1.5 mL) insulin pen (3 sources) Start: 11-20-2024 Insulin Glargi ne U-300 Conc (Toujeo Solostar U-300 Insulin) 300 unit/mL (1.5 mL) insulin pen Active 100 U SC EVERY MORNING November 20, 2024 3:17pm Start: 12-18-2022 End: 11-20-2024 Insulin Glargine U-300 Conc (Toujeo Solostar U-300 Insulin) 300 unit/mL (1.5 mL) insulin pen Discontinued 100 U SC TWICE A DAY December 18, 2022 12:00am November 20, 2024 3:20pm Start: 12-18-2022 Insulin Glargi ne U-300 Conc (Toujeo Solostar U-300 Insulin) 300 unit/mL (1.5 mL) insulin pen Active 100 U SC TWICE A DAY December 18, 2022 12:00am insulin glargine,hum.rec.anl og (TOUJEO MAX U-300 SOLOSTAR SUBCUTANEOUS) (12 sources) insulin glargine ,hum.rec.anlog (TOUJEO MAX U-300 SOLOSTAR SUBCUTANEOUS) Inject subcutaneously as directed. Active insulin glargine ,hum.rec.anlog (TOUJEO MAX U-300 SOLOSTAR SUBCUTANEOUS) Inject subcutaneously as directed. 0 Active Comment on above: Inject subcutaneousl y as directed. 3 ml insulin lispro 100 unt/ml pen injector (10 sources) Insulin Analog Start: 11-20-2024 Insulin Lispro (Humalog Kwikpen Insulin) 100 unit/mL insulin pen Active 54 U SC WITH DINNER November 20, 2024 3:11pm Start: 11-20-2024 Insulin Lispro (Humalog Kwikpen Insulin) 100 unit/mL insulin pen Active 50 U SC DAILY November 20, 2024 3:10pm Start: 01-30-2024 End: 11-20-2024 Insulin Lispro (Humalog Kwik pen Insulin) 100 unit/mL insulin pen Discontinued 44 U SC DAILY January 30, 2024 12:00am November 20, 2024 3:20pm Start: 01-30-2024 End: 11-20-2024 Insulin Lispro (Humalog Kwik pen Insulin) 100 unit/mL insulin pen Discontinued 48 U SC WITH DINNER January 30, 2024 12:00am November 20, 2024 3:20pm Start: 11-27-2023 Insulin Lispro (Humalog Kwikpen Insulin) 100 unit/mL insulin pen Active 1 sliding scale dose SC THREE TIMES A DAY November 27, 2023 12:00am PRIOR TO MEALS Start: 11-27-2023 End: 11-20-2024 Insulin Lispro (Humalog Kwik pen Insulin) 100 unit/mL insulin pen Discontinued 44 U SC WITH LUNCH November 27, 2023 12:00am November 20, 2024 3:10pm Insulin Williamson, Disposable, (PEN NEEDLE) 29 x 1/2 ndle [...] spray(s) nasa l route twice daily Ipratropium [place] Active 2 SPRAY INTRANASAL TWICE A DAY December 18, 2022 12:00am administer into each nostril Ipratropium Brom anuja (ATROVENT) 21 mcg (0.03 %) nasal spray Use 2 Sprays in the nose every 12 hours. Active Comment on above: Use 2 Sprays in the nose every 12 hours. ipratropium-salbutam ol (COMBIVENT RESPIMAT) 20-100 mcg/actuation inhaler (12 sources) take 1 puff(s) by inhalation every [...] Maximum 6 puffs daily. lactobacillus rhamnosus gg [id number] unt oral capsule (2 sources) Start: 024 take 10 capsules by mouth twice daily Lactobacillus Rhamnosus Gg (Culturelle) 10 billion cell capsule Active 1 NMA PO TWICE A DAY November 27, 2023 12:00am lamoTRIgine 150 mg oral tablet (6 sources) Mood Stabilizer, Anti-epileptic Agent Start: 014 End: 022 lamoTRIgine (LAMICTAL) 150 mg tablet Take 1 tablet by mouth twice daily. Per psychiatry. 0 11/17/2013 01/31/2022 Discontinued Comment on above: Take 1 tablet by jessica th twice daily. Per psychiatry. levocetirizine dihydrochloride 5 mg oral tablet (12 sources) Histamine-1 Receptor Antagonist take 1 tablet by mouth once daily levocetirizine 5 mg tablet Take 5 mg by mouth once daily. Active Comment on above: Take 5 mg by mouth o nce daily. lisinopril 2.5 mg oral tablet (20 sources) Angiotensin Converting Enzyme Inhibitor Start: 016 take 1 tablet by mouth once daily Lisinopril 2.5 mg tablet Active 2.5 mg PO DAILY December 18, 2022 12:00am Comment on above: Take 2.5 mg by mouth every morning. loperamide hydrochloride 2 mg oral capsule (20 sources) Opioid Agonist Start: 024 Loperamide (Anti-Diarrheal (Loperamide)) 2 mg capsule Active [...] Start: 11-22-2020 take 1 tablet by jessica th once as needed, then take 1 tablet by mouth twice daily as needed Imodium A-D 2 mg oral tablet Dose : 2 mg = 1 tab(s), Oral, BID, PRN Loose stool, 0 Refill(s) Start Date: 11/22/20 Status: Ordered Repeat number: 1 Start: 02-01-2017 take 2 tablets by [facility] every twelve hours as needed loperamide HCl (IMODIUM) 2 mg tab Take 4 mg by mouth twice daily as needed for diarrhea. 0 02/01/2017 Active Start: 02-01-2017 take 1 capsule by mo [facility] every six hours as needed loperamide (IMODIUM) 2 mg cap(s) Take 1 capsule by mouth four times daily as needed. 0 02/01/2017 Active Start: 03-23-2016 IMODIUM A-D 1 MG/7.5ML LIQD LOPERAMIDE HCL [id number] [facility] Start: 03-23-2016 IMODIUM A-D 1 MG/7.5ML LIQD LOPERAMIDE HCL [id number] K[facility] Comment on above: Take 1 capsule by [facility] four times daily as needed. Take 4 mg by mouth t wice daily as needed for diarrhea. loratadine 10 mg oral tablet (13 sources) Start: 3 take 1 tablet by [...] Repeat number: 1 take 1 tablet by [facility] once daily lurasidone (LATUDA) 60 mg tab tablet Take by mouth once daily. Active Comment on above: Take by mouth once d aily. Take 80 mg by mouth every morning. Magnesium Hydroxide (13 sources) Start: 5 take 1 mL by mouth twice daily as needed for constipation Magnesium Hydroxide (Milk Of Magnesia) 400 mg/5 mL suspension Active 15 mL PO TWICE A DAY as needed for constipation November 20, 2024 12:00am magnesium hydrox anuja (MILK OF MAGNESIA ORAL) [...] 400 (240 Mg) MG TABS MAGNESIUM OXIDE [id number] [facility] Start: 03-23-2016 MAGNESIUM OXID E 400 (240 Mg) MG TABS MAGNESIUM OXIDE [id number] [facility] Comment on above: Take 1 tablet by jessica th once daily. Milk of Magnesia 8% oral suspension (7 sources) Start: 11-22-2020 Milk of Magnesia 8% oral suspension 2.4 gram(s) Dose = 30 mL, Oral, qHS, PRN as needed for constipation, # 300 mL, 0 Refill(s) Start Date: 11/22/20 Status: Ordered Quantity: 300.0 Unit: mL Repeat number: 1 Start: 11-22-2020 Milk of Magnes ia 8% oral suspension 2.4 gram(s) Dose [...] 1 tablet by jessica th once daily. Multivitamins-[place] als-Lutein (CENTRUM SILVER) tab (20 sources) Start: 01-06-2014 [...] tablet (20 sources) Opioid Antagonist Start: 07-29-2021 take 1 tablet by mouth once daily Naloxegol (Movantik) 25 mg Tablet Active 25 mg PO DAILY July 29, 2021 1:00am Comment on above: Take 25 mg by mouth every morning. For constipation OLANZapine 15 mg oral tablet (20 sources) Atypical Antipsychotic Start: 01-20-2025 take 1 tablet by mouth at bedtime Olanzapine 15 mg tablet Active 15 mg PO AT BEDTIME January 20, 2025 12:00am Start: 12-18-2022 take 1 tablet by jessica th once daily in the evening Olanzapine (Zyprexa) 10 mg tablet Active 10 mg PO EVERY EVENING December 18, 2022 12:00am Start: 02-01-2017 take 1 tablet by jessica th once daily at bedtime OLANZapine (ZYPREXA) 5 mg tablet Take 1 tablet by mouth daily at bedtime. 0 02/01/2017 Active Comment on above: Take 1 tablet by jessica th daily at bedtime. polyethylene glycol 3350 28714 mg powder for oral solution (20 sources) Osmotic Laxative Start: 12-18-2022 Polyethylene Glycol 3350 (Miralax) 17 gram/dose powder [...] Start: 02-01-2017 Polyethylene G lycol 3350 powd prazosin 1 mg oral capsule (20 sources) alpha-Adrenergic Alem Start: 07-28-2013 take 1 capsule by [...] mg PO TWICE A DAY 14 7 0 March 11, 2019 3:35pm January 16, 2023 1:21pm neuropathy Start: 03-23-2016 take 1 capsule by [facility] twice daily Pregabalin 100 mg capsule Active 100 mg PO TWICE A DAY January 16, 2023 12:00am Comment on above: Take 1 capsule by [facility] twice daily. raNITIdine 150 mg oral tablet (20 sources) Histamine-2 Receptor Antagonist Start: 10-06-19 14 take 1 tablet by mouth once daily at bedtime ranitidine 150 mg tablet Indications: Esophageal reflux Take 1 tablet by mouth daily at bedtime. 30 tablet 10/05/2013 Active Comment on above: Take 1 tablet by [facility] daily at bedtime. simvastatin 20 mg oral tablet (20 sources) HMG-CoA Reductase Inhibitor Start: 11-11-19 14 take 1 tablet by mouth once daily in the evening simvastatin 20 mg tablet Indications: Other and unspecified hyperlipidemia Take by mouth. Take one(1) tablet daily in the evening. (docudose) 90 tablet 3 11/10/2013 Active Comment on above: Take by mouth. Take one(1) tablet daily in the evening. (docudose) Tirzepatide (Mounjaro) 7.5 mg/0.5 mL pen injector (1 source) Start: 11-21-19 Tirzepatide (Mounjaro) 7.5 mg/0.5 mL pen injector Active 7.5 mg SC FR November 20, 2024 12:00am On Hold: ON HOLD FOR EGD 01/21/25 - LAST DOSE 01/08/25 Trelegy Ellipta 200 mcg-62.5 mcg-25 mcg/inh inhalation powder (6 sources) Start: 04-28-20 take 1 dose by inhalation once daily [...] on above: Take 1 tablet by jessica three times daily. Vitamin D2 2000 intl [...] Drug Class(es) Dates Sig (Normalized) Sig (Original) acetaminophen 325 mg / oxyCODONE hydrochloride 5 mg oral tablet (20 sources) Opioid Agonist Start: 09-27-2024 End: 11-20-2024 Oxycodone-Acetamino phen (Percocet) 5-325 mg tablet Discontinued 1 {tbl} PO EVERY 6 HOURS as needed for Flank Pain 10 3 0 September 27, 2024 November 20, 2024 3:19pm Acute flank pain Unspecified abdominal pain Start: 01-30-2024 End: 11-20-2024 Oxycodone-Acetaminophen 5-32 5 mg tablet Discontinued 1 {tbl} PO EVERY 12 HOURS NEEDED as needed for pain 0 January 30, 2024 12:00am November 20, 2024 3:19pm Start: 03-08-2019 End: 12-18-2022 Oxycodone-Acetaminophen 1 EA CH tablet Discontinued 1 {tbl} PO 4 TIMES DAILY 28 7 0 March 11, 2019 December 18, 2022 1:44pm Osteoarthritis of spine Chronic pain Spondylosis, unspecified Other chronic pain pain Start: 03-08-2019 End: 12-18-2022 take 1 tablet by mouth four times daily Oxycodone-Acetaminophen Discontinued 1 TABLET PO 4 TIMES DAILY 28 7 March 11, 2019 December 18, 2022 1:44pm Start: [...] Start: 03-23-2016 PERCOCET 5-325 MG TABS OXYCODONE-ACETAMINOPHEN [id number] [facility] Start: 03-23-2016 PERCOCET 5-325 MG TABS OXYCODONE-ACETAMINOPHEN [id number] [facility] Alum-Mag Hydroxide-Simeth (Maalox Maximum Strength) 400-400-40 mg/5 mL suspension (2 sources) Start: 12-18-2022 End: 01-20-2025 take 1 mL by mouth every three hours as needed Alum-Mag Hydroxide-Simeth (Maalox Maximum Strength) 400-400-40 mg/5 mL suspension Discontinued 5 mL PO .Q3H PRN as needed for indigestion December 18, 2022 12:00am January 20, 2025 12:09pm Start: 12-18-2022 take 1 mL by mouth e very three hours as needed Alum-Mag Hydroxide-Simeth (Maalox Maximum Strength) 400-400-40 mg/5 mL suspension Active 5 mL PO .Q3H PRN as needed for indigestion December 18, 2022 12:00am amLODIPine 5 mg oral tablet (20 sources) Dihydropyridine Calcium Channel Alem Start: 03-08-2019 End: 11-20-2024 take 1 tablet by mouth once daily Amlodipine 5 MG tablet Discontinued 5 mg PO DAILY March 08, 2019 12:00am November 20, 2024 3:19pm blood pressure Comment on above: Take 5 mg by mouth e very morning. ampicillin 500 mg oral capsule (1 source) Penicillin-class Antibacterial Start: 01-20-2025 End: 01-20-2025 take 1 capsule by mouth three times daily Ampicillin 500 mg capsule Discontinued 500 mg PO THREE TIMES A DAY January 20, 2025 12:00am January 20, 2025 12:21pm ARTIFICIAL TEAR SOLUTION (8 sources) Start: 03-23-2016 ARTIFICIAL TEARS 0.1-0.3 % SOLN ARTIFICIAL TEAR SOLUTION [id number] [facility] ARTIFICIAL TEAR SOLUTION (1 source) Start: 03-23-2016 ARTIFICIAL TEARS 0.1-0.3 % SOLN ARTIFICIAL TEAR SOLUTION [id number] [facility] aspirin 81 mg chewable tablet (15 sources) Nonsteroidal Anti-inflammatory Drug Start: 03-23-2016 ASPIRIN 81 MG CHEW ASPIRIN [id number] [facility] Start: 11-03-2013 End: 01-31-2022 take 1 tablet by mouth once daily aspirin, enteric coated (ADULT ASPIRIN EC LOW STRENGTH) 81 mg EC tablet Indications: Type II or unspecified type diabetes mellitus without mention of complication, uncontrolled Take 1 tablet by mouth once daily. 30 tablet 11 11/03/2013 01/31/2022 Discontinued Comment on above: Take 1 tablet by jessica once daily. baclofen 5 mg oral tablet (13 sources) gamma-Aminobutyric Acid-ergic Agonist Start: 12-18-2022 End: 11-20-2024 take 1 tablet by mouth three times daily Baclofen 5 mg tablet Discontinued 5 mg PO THREE TIMES A DAY December 18, 2022 12:00am November 20, 2024 3:19pm Start: 12-18-2022 take 5 mg by mouth once daily Baclofen Active 5 MG PO DAILY December 18, 2022 12:00am bisacodyl 10 mg rectal suppository (20 sources) Stimulant Laxative Start: 12-18-2022 End: 11-20-2024 Bisacodyl (Dulcolax (Bisacodyl)) 10 mg suppository Discontinued 10 mg RC .Q24 PRN as needed for constipation December 18, 2022 12:00am November 20, 2024 3:09pm Start: 12-18-2022 Bisacodyl (Dul colax (Bisacodyl)) 10 mg suppository Active 10 MG RC Q8H December 18, 2022 12:00am Start: 11-22-2020 take 1 tablet by jessica every eight hours as needed for constipation [...] every 8 hours as needed for constipation. bismuth subsalicylate (9 sources) Bismuth Start: 03-23-2016 BISMATROL MAXIMUM STRENGTH 525 MG/15ML SUSP BISMUTH SUBSALICYLATE [id number] [facility] Start: 03-23-2016 BISMATROL MAXI MUM STRENGTH 525 MG/15ML SUSP BISMUTH SUBSALICYLATE [id number] Karthikeyan Rubén Rafael Bupivacaine (1 source) Amide Local Anesthetic Start: 12-13-2021 End: 12-13-2021 bupivacaine HCl 2.5 mg injection (SENSORCAINE) 168 hr buprenorphine 0.005 mg/hr transdermal system (15 sources) Partial Opioid Agonist Start: 03-08-2019 End: 03-11-2019 Buprenorphine 1 EACH patch weekly Discontinued 1 NMA TD EVERY WEEK March 08, 2019 12:00am March 11, 2019 3:35pm Check with primary doctor Start: 03-08-2019 End: 03-11-2019 Buprenorphine Discontinued 1 EACH TD EVERY WEEK March 08, 2019 12:00am March 11, 2019 3:35pm busPIRone hydrochloride 5 mg oral tablet (2 sources) Start: 11-27-2023 End: 11-20-2024 take 1 tablet by mouth twice daily Buspirone 5 mg tablet Discontinued 5 mg PO TWICE A DAY November 27, 2023 12:00am November 20, 2024 3:19pm clopidogrel 75 mg oral tablet (20 sources) [id number] Platelet Inhibitor Start: 03-23-2016 End: 03-11-2019 take 1 tablet by mouth once daily in the morning Clopidogrel 75 MG tablet Discontinued 75 mg PO DAILY July 25, 2016 1:00am March 11, 2019 3:26pm heart take in the morning Comment on above: Take 1 tablet by jessica th once daily. cyclobenzaprine hydrochloride 10 mg oral tablet (15 sources) Muscle Relaxant Start: 07-29-2021 End: 12-18-2022 take 1 tablet by mouth once daily Cyclobenzaprine 10 mg Tablet Discontinued 10 mg PO DAILY July 29, 2021 1:00am December 18, 2022 1:27pm Cyclosporine (Restasis) 0.05 % Dropperette (14 sources) Start: 07-29-2021 End: 01-30-2024 Cyclosporine (Restasis) 0.05 % Dropperette Discontinued 1 NMA EACH EYE Q12H July 29, 2021 1:00am January 30, 2024 11:18am Start: 07-29-2021 Cyclosporine ( Restasis) 0.05 % Dropperette Active 1 DRP EACH EYE Q1July 29, 2021 12:00am Start: 07-29-2021 Cyclosporine ( Restasis) 0.05 % Dropperette Active 1 DRP EACH EYE Q12H July 29, 2021 1:00am docusate sodium 100 mg oral capsule (15 sources) Start: 01-27-2018 End: 06-19-2018 take 1 capsule by mouth twice daily Docusate Sodium (Dok) 100 MG capsule Discontinued 100 mg PO TWICE A DAY 0 January 27, 2018 12:00am June 19, 2018 6:45pm doxycycline monohydrate 100 mg oral capsule (20 sources) Tetracycline-cla ss Drug Start: 07-22-2023 End: 10-15-2023 take 1 capsule by mouth twice daily Doxycycline Monohydrate 100 mg capsule Discontinued 100 mg PO TWICE A DAY 28 14 0 October 01, 2023 1:35pm October 14, 2023 [...] 25, 2016 1:00am December 18, 2022 1:29pm diabetes take every saturday morning Start: 07-25-2016 End: 12-18-2022 inject 4.5 mg by subcutaneous injection once Dulaglutide Discontinued 4.5 MG SQ FR July 25, 2016 1:00am December 18, 2022 1:29pm take every saturday morning Start: 03-23-2016 TRULICITY 1.5 MG/0.5ML SOPN DULAGLUTIDE [id number] [facility] Start: 03-23-2016 TRULICITY 1.5 MG/0.5ML SOPN DULAGLUTIDE [id number] [facility] dyclonine hydrochloride 2 mg oral [...] ea. 0.85 ml exenatide 2.35 mg/ml auto-injector (2 sources) GLP-1 Receptor Agonist Start: 11-27-2023 End: 01-30-2024 Exenatide Microspheres (Bydureon Bcise) 2 mg/0.85 mL auto-injector Discontinued 2 mg SC MO November 27, 2023 12:00am January 30, 2024 11:17am ferrous sulfate 325 mg oral tablet (15 sources) Start: 01-27-2018 End: 03-08-2019 take 1 tablet by mouth twice daily at mealtime Ferrous Sulfate 325 MG tablet Discontinued 325 mg PO TWICE DAILY WITH MEALS 0 January 27, 2018 12:00am March 08, 2019 3:35pm fluticasone propionate 0.05 mg/actuat metered dose nasal spray (20 sources) Corticosteroid Start: 12-18-2022 End: 11-20-2024 take 50 ug nasal route once daily Fluticasone Propionate (Flonase Allergy Relief) 50 mcg/actuation spray,suspension Discontinued 2 NMA INTRANASAL DAILY December 18, 2022 12:00am November 20, 2024 3:19pm administer into each nostril Start: 12-18-2022 take 1 spray(s) nasa l route once daily Fluticasone Propionate (Flonase Allergy Relief) 50 mcg/actuation spray,suspension Active 2 SPRAY INTRANASAL DAILY December 18, 2022 12:00am administer into each nostril Start: 11-22-2020 take 1 dose nasal ro bharti once daily in the morning Flonase 50 mcg/inh nasal spray Dose = 2 spray(s), Nostril, each, qAM, 0 Refill(s) Start Date: 02/14/21 Status: Ordered Repeat number: 1 Start: 02-01-2017 take 1 spray(s) nasa l route once daily fluticasone (FLONASE) 50 mcg/actuation nasal spray Use 1 [place] in each nostril once daily. . 0 02/01/2017 Active Start: 03-23-2016 FLONASE ALLERG Y RELIEF 50 MCG/ACT SUSP FLUTICASONE PROPIONATE [id number] [facility] Start: 03-23-2016 FLONASE ALLERG Y RELIEF 50 MCG/ACT SUSP FLUTICASONE PROPIONATE [id number] [facility] Start: 09-01-2014 take 2 spray(s) nasa l route once daily fluticasone (FLONASE) 50 mcg/actuation nasal spray Indications: Rhinitis Use 2 Sprays in each nostril once daily. 1 Bottle 11 09/01/2014 Active Comment on above: Use 2 Sprays in each nostril once daily. Use 1 [place] in each nostril once daily. . formoterol (13 sources) beta2-Adrenergic Agonist Start: 03-08-2019 End: 12-18-2022 take 20 [...] Fumarate 20 MCG/2 ML solution for nebulization (2 sources) Start: 03-08-2019 End: 12-18-2022 take 20 ug by inhalation twice daily Formoterol Fumarate 20 MCG/2 ML solution for nebulization Discontinued 20 ug INHALATION TWICE A DAY March 08, 2019 12:00am December 18, 2022 1:43pm cough Start: 03-08-2019 End: 12-18-2022 take 20 ug by inhalation twice daily Formoterol Fumarate 20 MCG/2 ML solution for nebulization Discontinued 20 ug INHALATION TWICE A DAY March 08, 2019 12:00am December 18, 2022 1:43pm furosemide 20 mg oral tablet (20 sources) Loop Diuretic Start: 11-24-2023 End: 11-20-2024 take 3 tablets by mouth once daily in the morning Furosemide 20 mg tablet Discontinued 60 mg PO EVERY MORNING 90 0 November 24, 2023 8:13pm November 20, 2024 3:19pm Start: 11-24-2023 take 60 mg by mouth once daily in the morning Furosemide Active 60 MG PO EVERY MORNING 90 November 24, 2023 8:13pm Start: 09-23-2023 furosemide [...] equal 50 mg every morning for [place] HYDROcodone bitartrate 30 mg 24 hr extended release oral tablet, abuse-deterrent (7 sources) Opioid Agonist Start: 02-15-20 Hys[place]la ER 30 mg oral tablet, extended release Dose : 30 mg = 1 tab(s), Oral, q24h, tab(s), 0 Refill(s), 81.8 Start Date: 02/14/21 Status: Ordered Repeat number: 1 hydrOXYzine pamoate 25 mg oral capsule (20 sources) Antihistamine Start: 12-19-19 End: 11-21-19 take 1 capsule by mouth at bedtime Hydroxyzine Pamoate (Vistaril) 25 mg capsule Discontinued 25 mg PO AT BEDTIME December 18, 2022 12:00am November 20, 2024 3:19pm Comment on above: Take 25 mg by mouth twice daily as needed for itching/rash. ibuprofen 400 mg oral tablet (20 sources) Nonsteroidal Anti-inflammatory Drug Start: 03-08-20 End: 03-11-20 take 1 tablet by mouth every eight [...] 03-23-2016 LACTAID 3000 U NIT TABS LACTASE [id number] K[facility]an [facility] LINACLOTIDE (9 sources) Guanylate Cyclase-C Agonist Start: 03-23-2016 LINZESS 145 MCG CAPS LINACLOTIDE [id number] [facility] Start: 03-23-2016 LINZESS 145 MC G CAPS LINACLOTIDE [id number] [facility] LORazepam 1 mg oral tablet (20 sources) Benzodiazepine Start: 07-29-2021 End: 11-22-2022 take 0.5 mg by mouth every six hours Lorazepam 1 MG tablet Discontinued 0.5 mg PO EVERY 6 HOURS July 30, 2021 12:07am November 22, 2022 9:17am anxiety Start: 07-29-2021 End: 11-22-2022 take 0.5 mg [...] TIMES DAILY NEEDED as needed for ANXIETY 6 0 January 27, 2018 12:03pm March 08, 2019 3:35pm Anxiety Anxiety disorder, unspecified Start: 01-13-2018 End: 01-27-2018 take 1 tablet by mouth three times daily Lorazepam (Ativan) 2 MG tablet Discontinued 2 mg PO THREE TIMES A DAY January 13, 2018 12:00am January 27, 2018 12:09pm anxiety Start: 03-23-2016 End: 01-31-2022 take 1 tablet by mouth every six hours Lorazepam 1 MG tablet Discontinued 1 mg PO EVERY 6 HOURS 10 0 March 11, 2019 3:35pm July 30, 2021 12:07am anxiety Comment on above: Take 1 tablet by jessica th every 6 hours as needed. melatonin 3 mg oral capsule (13 sources) Start: End: take 1 capsule by mouth at bedtime Melatonin 3 mg capsule Discontinued 3 mg PO BEDTIME December 18, 2022 12:00am November 20, 2024 3:19pm metFORMIN hydrochloride 500 mg oral tablet (20 sources) Biguanide Start: End: take 1 tablet by mouth twice daily Metformin 500 mg tablet Discontinued 500 mg PO TWICE A DAY December 18, 2022 12:00am November 20, 2024 3:19pm Start: 10-05-2013 take 1 tablet by jessica th twice daily at mealtime metFORMIN 1,000 mg tablet Indications: Type II or unspecified type diabetes mellitus without mention of complication, uncontrolled Take 1 tablet by mouth twice daily with meals. 60 tablet 11 10/05/2013 Active Comment on above: Take 1 tablet by jessica th twice daily with meals. naloxone hydrochloride 0.4 mg/ml injectable solution (20 sources) Opioid Antagonist Start: 12-18-2022 End: 11-20-2024 Naloxone 0.4 mg/mL solution Discontinued 0.2 mg SC ONCE as needed for opioid reversal December 18, 2022 12:00am November 20, 2024 3:19pm Start: 12-18-2022 Naloxone Activ e 0.2 MG SC ONCE December 18, 2022 12:00am nalOXone HCl 0.4 mg/mL injection 0.4 mg by INJECTION(UNSPECIFIED PARENTERAL ROUTES) route. Active Comment on above: 0.4 mg by INJECTION( UNSPECIFIED PARENTERAL ROUTES) route. naproxen 500 mg oral tablet (15 sources) Nonsteroidal Anti-inflammatory Drug Start: 018 End: take 1 tablet by mouth twice daily as needed Naproxen 500 MG tablet Discontinued 500 mg PO TWICE DAILY NEEDED January 21, 2018 12:00am January 27, 2018 12:12pm ondansetron 4 mg oral tablet (20 sources) Serotonin-3 Receptor Antagonist Start: 019 End: take 1 tablet by mouth every six hours as needed for nausea Ondansetron Hcl (Zofran) 4 mg Tablet Discontinued 4 mg PO EVERY 6 HOURS as needed for NAUSEA July 29, 2021 1:00am December 18, 2022 1:44pm Comment on above: Take 4 mg by mouth e very 6 hours as needed. oxybutynin chloride 5 mg oral tablet (1 source) Cholinergic Muscarinic Antagonist Start: End: take 1 tablet by mouth once daily Oxybutynin Chloride 5 mg tablet Discontinued 5 mg PO daily November 20, 2024 12:00am January 20, 2025 12:11pm pantoprazole 40 mg delayed release oral tablet (20 sources) Proton Pump Inhibitor Start: End: take 1 tablet by mouth once daily Pantoprazole 40 mg Tablet,Delayed Release (Dr/Ec) Discontinued 40 mg PO DAILY July 29, 2021 1:00am January 20, 2025 12:11pm Comment on above: Take 40 mg by mouth every morning. potassium chloride 20 meq extended release oral tablet (12 sources) Start: End: take 1 tablet by mouth once daily Potassium Chloride 20 mEq tablet extended release Discontinued 20 meq PO DAILY January 16, 2023 12:00am November 20, 2024 3:19pm QUEtiapine 50 mg oral tablet (20 sources) Atypical Antipsychotic Start: End: take 1 tablet by mouth once [...] Start: 03-23-2016 SEROQUEL XR 30 0 MG [id number] QUETIAPINE FUMARATE [id number] [facility] Start: 03-23-2016 SEROQUEL XR 20 0 MG [id number] QUETIAPINE FUMARATE [id number] [facility] Start: 03-23-2016 SEROQUEL XR 20 0 MG [id number] QUETIAPINE FUMARATE [id number] [facility] Start: 03-23-2016 SEROQUEL XR 30 0 MG [id number] QUETIAPINE FUMARATE [id number] Karthikeyan [place] 0.25 mg, 0.5 mg dose 1.5 ml semaglutide 1.34 mg/ml pen injector (2 sources) Start: 01-30-2024 End: 11-20-2024 Semaglutide (Ozempic) 0.25 m g or 0.5 mg(2 mg/1.5 mL) pen injector Discontinued 0.5 mg SC January 30, 2024 12:00am November 20, 2024 3:15pm for 4 weeks Semaglutide (2 sources) Start: 01-30-2024 End: 11-20-2024 Semaglutide (Ozempic) 0.25 m g or 0.5 mg (2 mg/3 mL) pen injector Discontinued 0.25 mg SC .TUESDAY January 30, 2024 12:00am November 20, 2024 3:15pm LAST DOSE 02/21/24 Start: 01-30-2024 Semaglutide (O zempic) 0.25 mg or 0.5 mg (2 mg/3 mL) pen injector Active 0.25 mg SC .TUESDAY January 30, 2024 12:00am LAST DOSE 02/21/24 tiZANidine 2 mg oral tablet (20 sources) Central alpha-2 Adrenergic Agonist Start: 12-18-2022 End: 11-20-2024 take 1 tablet by mouth every twelve hours as needed Tizanidine 2 mg tablet Discontinued 2 mg PO Q12H as needed for muscle spasticity December 18, 2022 12:00am November 20, 2024 3:18pm Start: 11-17-2013 tiZANidine (ZA NAFLEX) 4 mg tablet Take 2 mg by mouth twice daily. Per Pain Mx. 11/17/2013 Active Start: 11-17-2013 tiZANidine (ZA NAFLEX) 4 mg tablet Take 1 tablet by mouth twice daily. Per Pain Mx. 0 11/17/2013 Active Comment on above: Take 1 tablet by jessica twice daily. Per Pain Mx. Take 2 mg by mouth t wice daily. Per Pain Mx. traMADol hydrochloride 50 mg oral tablet (15 sources) Opioid Agonist Start: 8 End: 8 take 1 tablet by mouth every six hours as needed for pain Tramadol 50 MG tablet Discontinued 50 mg PO EVERY 6 HOURS NEEDED as needed for Pain January 23, 2018 12:00am January 27, 2018 12:12pm traZODone hydrochloride 150 mg oral tablet (9 sources) Serotonin Reuptake Inhibitor Start: 6 TRAZODONE HCL 150 MG TABS TRAZODONE HCL [id number] [facility] vortioxetine 20 mg oral tablet (9 sources) Start: 6 TRINTELLIX 20 MG TABS VORTIOXETINE HBR [id number] K[facility] zolpidem tartrate 10 mg oral tablet (20 sources) gamma-Aminobutyric Acid-ergic Agonist Start: 1 End: 3 take 1 tablet by mouth at bedtime as needed for sleep Zolpidem (Ambien) 10 mg Tablet Discontinued 10 mg PO AT BEDTIME as needed for Sleep July 29, 2021 1:00am December 18, 2022 1:46pm Problems Active Problems Problem Classification Problem Date Documented Date Episodic/Chronic Abdominal pain (15 sources) Right flank pain; Translations: [Unspecified abdominal pain] Onset: 5 11-24-2023 Episodic Acute cerebrovascular disease (15 sources) Cerebrovascular accident; Translations: [Cerebral infarction, unspecified] 03-08-2019 Chronic Anxiety disorders (15 sources) Anxiety; Translations: [Anxiety disorder, unspecified] 06-19-2018 Chronic Asthma (20 sources) Unspecified asthma, uncomplicated; Translations: [Asthma, unspecified type, unspecified] 04-13-2005 Chronic Calculus of urinary tract (7 sources) Personal history of urinary calculi; Translations: [History of calculus of kidney] Onset: 7 09-23-2023 Episodic Chronic obstructive pulmonary disease and bronchiectasis (16 sources) Chronic obstructive lung disease; Translations: [Chronic [...] without bleeding] 04-13-2005 Chronic E Codes: Fall (15 sources) Fall on same level from slipping, [...] Episodic Fracture of neck of femur (hip) (15 sources) Closed intertrochanteric fracture; Translations: [Displaced intertrochanteric fracture of left femur, initial encounter for closed fracture] 03-09-2019 Episodic Comment on above: minimally displaced and impacted intertrochanteric fracture with sub troch extension Genitourinary symptoms and ill-defined conditions (7 sources) Proteinuria; Translations: [Proteinuria, unspecified] Onset: 7 Resolved: 8 01-23-2024 Episodic Headache; including migraine (2 sources) Headache; Translations: [Headache] 03-30-2024 Episodic Infective arthritis and osteomyelitis (except that caused by tuberculosis or sexually transmitted disease) (8 sources) Osteomyelitis of right ankle; Translations: [Osteomyelitis, unspecified] Onset: 4 10-17-2023 Chronic Mood disorders (15 sources) Bipolar disorder; Translations: [Bipolar disorder, unspecified] 03-08-2019 Chronic Nutritional deficiencies (1 source) Vitamin D deficiency; Translations: [Vitamin D deficiency, unspecified] Chronic Nutritional deficiencies (15 sources) Iron deficiency; Translations: [Iron deficiency] 06-19-2018 Episodic Osteoarthritis (1 source) Degenerative joint disease involving multiple joints; Translations: [Polyosteoarthritis, unspecified] Chronic Osteoporosis (20 sources) Osteoporosis; Translations: [Other osteoporosis without current pathological fracture] Onset: 2 09-12-2021 Chronic Other aftercare (2 sources) Drug therapy finding; Translations: [long term care pharmacist (current) use of anticoagulants] 09-27-2024 Episodic Other aftercare (1 source) Encounter for follow-up examination after completed treatment for conditions other than malignant neoplasm; Translations: [Encounter for follow-up examination after completed treatment for conditions other than malignant neoplasm] Onset: 5 Episodic Other circulatory disease (15 sources) History of cerebrovascular accident; Translations: [Personal history of transient ischemic attack (TIA), and cerebral infarction without residual deficits] 06-19-2018 Episodic Other connective tissue disease (1 source) Myofascial pain; Translations: [Myalgia, other site] Episodic Other connective tissue disease (15 sources) Pain in lower limb; Translations: [Pain in right leg] 08-07-2021 Episodic Other connective tissue disease (1 source) Pain in bilateral legs; Translations: [Pain in right leg] Episodic Other connective tissue disease (3 sources) Chronic pain of right foot; Translations: [Pain in right toe(s)] 11-21-2023 Episodic Other connective tissue disease (3 sources) Chronic pain of left foot; Translations: [Pain in left toe(s)] 11-21-2023 Episodic Other connective tissue disease (1 source) Pain in left toe(s); Translations: [Pain in limb] 11-21-2023 Episodic Other connective tissue disease (1 source) Pain in right toe(s); Translations: [Pain in limb] 11-21-2023 Episodic Other connective tissue disease (2 sources) Pain of right lower leg; Translations: [Pain in right lower leg] 12-19-2023 Episodic Other diseases of bladder and urethra (20 sources) Disorder of bladder; Translations: [Other specified disorders of bladder] Onset: 0 01-11-2010 Chronic Other diseases of kidney and ureters (5 sources) Renal mass; Translations: [Other specified disorders of kidney and ureter] 11-24-2023 Chronic Other gastrointestinal disorders (3 sources) Constipation; Translations: [Constipation, unspecified] 11-21-2024 Episodic Other gastrointestinal disorders (2 sources) Constipation, unspecified; Translations: [Constipation, unspecified] Onset: 5 Episodic Other injuries and conditions due to external causes (1 source) Traumatic AND/OR non-traumatic injury; Translations: [Other injury of unspecified body region, initial encounter] Onset: 3 Episodic Other injuries and conditions due to external causes (3 sources) Delayed healing of wound; Translations: [Other injury of unspecified body region, subsequent encounter] 11-14-2023 Episodic Other nervous system disorders (15 sources) Chronic pain; Translations: [Other chronic pain] 06-19-2018 Chronic Other nervous system disorders (1 source) Skin sensation disturbance; Translations: [Unspecified disturbances of skin sensation] Episodic Other non-traumatic joint disorders (15 sources) Hip pain; Translations: [Pain in left hip] 03-08-2019 Episodic Other skin disorders (3 sources) Dystrophia unguium; Translations: [Nail dystrophy] 11-21-2023 Episodic Other skin disorders (1 source) Nail dystrophy; Translations: [Other specified diseases of nail] 11-21-2023 Episodic Other upper respiratory disease (20 sources) Rhinitis; Translations: [Chronic rhinitis] Onset: 2 03-10-2012 Chronic Residual codes; unclassified (1 source) Presence of other specified functional implants; Translations: [Implantable intrathecal infusion pump present] Chronic Residual codes; unclassified (14 sources) Tobacco user; Translations: [Tobacco use] 11-22-2022 Episodic Residual codes; unclassified (3 sources) Bilateral lower limb edema; Translations: [Localized edema] 11-24-2023 Episodic Residual codes; unclassified (1 source) Other specified postprocedural states; Translations: [Other specified postprocedural states] Onset: 5 Episodic Schizophrenia and other psychotic disorders (20 sources) Schizophrenia; Translations: [Schizophrenia, unspecified] Onset: 6 03-26-2006 Chronic Spondylosis; intervertebral disc disorders; other back problems (13 sources) Lumbosacral spondylosis without myelopathy; Translations: [Spondylosis without myelopathy or radiculopathy, lumbosacral region] Onset: 5 Resolved: 3 02-14-2021 Chronic Substance-related disorders (1 source) Nicotine dependence, cigarettes, uncomplicated; Translations: [Nicotine dependence, cigarettes, uncomplicated] Onset: 5 Chronic Superficial injury; contusion (15 sources) Contusion of hip; Translations: [Contusion of [...] Onset: 03-23-2016 04-01-2016 Episodic Gastritis and duodenitis (5 sources) Acute gastritis; Translations: [Acute gastritis without bleeding] Onset: 12-23-2007 Resolved: 03-10-2012 03-10-2012 Episodic Genitourinary symptoms and ill-defined conditions (5 sources) Urge incontinence of urine; Translations: [Urge incontinence] Onset: 06-16-2007 Resolved: 06-17-2013 06-17-2013 Chronic Nonspecific chest pain (12 sources) Chest pain; Translations: [Chest pain, unspecified] [...] Episodic Other nutritional; endocrine; and metabolic disorders (5 sources) Obesity; Translations: [Obesity, unspecified] Onset: 03-26-2006 Resolved: 06-17-2013 06-17-2013 Chronic Other screening for suspected conditions (not mental disorders or infectious disease) (5 sources) Thyroid function tests abnormal; Translations: [Abnormal [...] Test Name Value Interpretation Reference Range Facility Bedside Glucoseon 01-21-2025 FINGERSTICK GLU 279 mg/dL High 74-106 [facility] Comment on above: Result Comment: PAO MARS OF PATIENT CARE PER NURSING PROTOCOL Performed By: #### L 400.0001 #### [facility] [address] [place], [address] EGD Reporton 01-21-2025 EGD Report [facility] Medical Records Department [address] [place] [address] EGD Report MR#: [id number] Acct: [id number] Name: JULIANA MERIDA Rep #: [id number] : 1960 64 From: Fer Simmons DO PCP: Mariah Atkinson MD Status:[facility] Patient Name: Juliana Merida Procedure Date: 01/21/2025 8:38 AM Date of : 1960 Age: 64 Procedure: Upper GI endoscopy Indications: Epigastric abdominal pain, Heartburn, Suspected esophageal reflux Providers: Fer Simmons DO Referring MD: Mariah Atkinson Md Medicines: Monitored Anesthesia Care Patient Profile: This is a 64 year old female. Refer to note in patient chart for documentation of history and physical. Patient has symptoms of acute epigastric abdominal pain, chronic dyspepsia and acute nausea. Complications: No immediate complications. Procedure: Pre-Anesthesia Assessment: - Prior to the procedure, a History and Physical was performed, and patient medications and allergies were reviewed. The patient is competent. The risks and benefits of the procedure and the sedation options and risks were discussed with the patient. All questions were answered and informed consent was obtained. Patient identification and proposed procedure were verified by the physician in the pre-procedure area. Mental Status Examination: alert and oriented. Airway Examination: normal oropharyngeal airway and neck mobility. Respiratory Examination: clear to auscultation. CV Examination: normal. Prophylactic Antibiotics: The patient does not require prophylactic antibiotics. Prior Anticoagulants: The patient has taken no anticoagulant or antiplatelet agents except for NSAID medication. ASA Grade Assessment: II - A patient with mild systemic disease. After reviewing the risks and benefits, the patient was deemed in satisfactory condition to undergo the procedure. The anesthesia plan was to use monitored anesthesia care (MAC). Immediately prior to administration of medications, the patient was re-assessed for adequacy to receive sedatives. The heart rate, respiratory rate, oxygen saturations, blood pressure, adequacy of pulmonary ventilation, and response to care were monitored throughout the procedure. The physical status of the patient was re-assessed after the procedure. After obtaining informed consent, the endoscope was passed under direct vision. Throughout the procedure, the patient's blood pressure, pulse, and oxygen saturations were monitored continuously. The gastroscope was introduced through the mouth, and advanced to the fourth part of the duodenum. Small bowel enteroscopy was deemed necessary. The upper GI endoscopy was accomplished without difficulty. The patient tolerated the procedure well. Scope In: 8:56:51 AM Scope Out: 9:02:08 AM Total Procedure Duration Time 0 hours 5 minutes 17 seconds Findings: The Z-line was irregular and was found 39 cm from the incisors. Biopsies were taken with a cold forceps for histology. Patchy mildly erythematous mucosa without bleeding was found in the gastric body. Biopsies were taken with a cold forceps for histology. Verification of patient identification for the specimen was done. Biopsies were taken with a cold forceps for Helicobacter pylori testing. Verification of patient identification for the specimen was done. Estimated blood loss was minimal. A single 5 mm sessile polyp was found in the duodenal bulb. Biopsies were taken with a cold forceps for histology. Verification of patient identification for the specimen was done. Biopsies were taken with a cold forceps for histology. Patchy mildly erythematous mucosa without active bleeding and with no stigmata of bleeding was found in the entire duodenum. Biopsies were taken with a cold forceps for histology. Verification of patient identification for the specimen was done. Estimated blood loss was minimal. Impression: - Z-line irregular, 39 cm from the incisors. Biopsied. - Erythematous mucosa in the gastric body. Biopsied. - A single duodenal polyp. Biopsied. - Erythematous duodenopathy. Biopsied. Recommendation: - Discharge patient to home. - Resume previous diet. - Continue present medications. - Await pathology results. Procedure Code(s): --- Professional --- 59352, Small intestinal endoscopy, enteroscopy beyond second portion of duodenum, not including ileum; with biopsy, single or multiple CPT copyright 2021 [employer]. All rights reserved. The codes documented in this report are preliminary and upon family day carer review may be revised to meet current compliance requirements. Fer Simmons DO 01/21/2025 9:17:41 AM This report has been signed electronically. Number of Addenda: 0 Note Initiated On: 01/21/2025 8:38 AM 01/21/25 0917 Date (more content not included)... Normal [facility] Glucose measurement at [facility] deOrdered By: Fer Friend on 01-21-2025 Glucose [Mass/Vol] 279 mg/dL High 74-106 [facility] Comment on above: MANAGEMENT OF PATIEN T CARE PER NURSING PROTOCOL MR/POSTOP.ANEon 01-21-2025 MR/POSTOP.ANE [facility] Medical Records Department [address] [place] [address] Anesthesia Postop Eval I 01/21/25911 MR#: [id number] Acct: [id number] Name: JULIANA MERIDA Rep #: [id number] : 1960 64 From: Yosef Camp PCP: Mariah Atkinson MD Status:[facility] Y Race: C Location: [place] [address] Anesthesia: Postop Eval I Current Vital Signs Temperature: 97.2 F Pulse Rate: 92 Blood Pressure: 126/67 Respiratory Rate: 16 Pulse Ox: 97 Oxygen Delivery Method: Room Air Assessment Airway patent: Yes Spontaneous unlabored respirations: Yes Mental status: Awake and Calm nausea: No Vomiting: No Anesthesia Complication: No Fluid Hydration Crystalloid volume administer (ml): 300 Total IV fluid infused: 300 Progress Note Anesthesia document: Postop Eval 1 completed: Yes 01/21/25912 Date Yosef Nolasco Signature: Date CC: Signed Normal [facility] MR/RLLAENNY7ap 01-21-2025 MR/POSTOPAN2 [facility] Medical Records Department [address] [place] [address] Anesthesia Postop Eval II 01/21/2549 MR#: [id number] Acct: [id number] Name: JULIANA MERIDA Rep #: [id number] : 1960 64 From: Kimmie Serna CRNA PCP: Mariah Atkinson MD Status:REG [facility] Y Race: C Location: [place] [address] Anesthesia Postop Eval I Sum Postop Eval Completion status Anesthesia document: Postop Eval 1 completed: Yes Anesthesia Postop Eval I Summary Anesthesia Postop Eval I Summary: Anesthesia Postop Eval I: Assessment Summary Airway patent Yes 01/21/25 09:13 [email or web address] Spontaneous unlabored Yes 01/21/25 09:13 [email or web address] respirations Mental status Awake,Calm 01/21/25 09:13 [email or web address] nausea No 01/21/25 09:13 [email or web address] Vomiting No 01/21/25 09:13 [email or web address] Anesthesia Postop Eval I: Fluid Summary Crystalloid volume administer 300 01/21/25 09:13 [email or web address] (ml) Colloids volume administered ( ml) Blood Product volume administered (ml) Total IV fluid infused 300 01/21/25 09:13 [email or web address] Anesthesia Postop Eval I: Summary Notes Anesthesia Complication No 01/21/25 09:13 [email or web address] Anesthesia Complication Comment: Post-operative progress note Anesthesia: Postop Eval II Evaluation Mental status: Awake and Calm Pain Level: 0 nausea: No Vomiting: No Complications Anesthesia Complication: No 01/21/2549 Date Kimmie Lopezignelham Signature: Date CC: Signed [facility] 01-20-2025 [place] Telephone (ANDRYATH) -------- JULIANA MERIDA ([id number]) 1960 F Date Time Provider Department 01/20/25 FUNMILAYO POPE During your visit today, we recorded the following information about you: Funmilayo Pope MD 01/20/2025 9:57 AM Signed ----- Message from Haylee Montana RN sent at 01/18/2025 9:13 AM EDT ----- Please enter and sign therapy plan for Prolia for Saturday01/25/25. Thanks Haylee Allergies As of Date: 01/20/2025 Noted Allergy Reaction NSAIDS (NON-STEROIDAL ANTI-INFLAM*10/16/2006 8 [...] (TRAMADOL) 03/14/2005 9 - Itching Date Reviewed: 07/27/2024 Reviewed by: Rufina Pandya, ELENA - Fully Assessed Prescriptions as of 01/20/2025 - amLODIPine (NORVASC) 5 mg tablet Take [...] hours as needed for cough. - Ipratropium [place] (ATROVENT) 21 mcg (0.03 %) nasal spray [...] to right ankle diabetic ulcer topically every night monitor for DM ulcer - Dyclonine (SUCRETS SORE THROAT) 2 mg lozg Use as instructed. - insulin glargine,hum.rec.anlog (TOUJEO MAX U-300 SOLOSTAR SUBCUTANEOUS) Inject subcutaneously as directed. - dvydvpskhke-fefidjsit-xs lanter (TRELEGY ELLIPTA) 200-62.5-25 mcg inhalation powder [...] (FLONASE) 50 mcg/actuation nasal spray Use 1 [place] in each nostril once daily. . - pregabalin (LYRICA) 100 mg capsule Take 1 capsule by mouth (more content not included)... Normal [facility] Gastroenterology Visit Repor ton 11-20-2024 Gastroenterology Visit Report [facility] Gastroenterology [address] [place] [address] OFFICE VISIT Date of Service: 11/20/24 MR#: [id number] Acct: [id number] Name: JULIANA MERIDA YANELI Rep #: [id number] : 1960 Provider: KALEIGH sim Age/Sex: 64/F Location: [email or web address] Status: Signed Intake Vital Signs 09/27/24 01:36 [...] 200 mg PO Q4H PRN cough 3 11/20/24 History ipratropium 0.5 mg-albuterol 3 [...] Q12H 01/12 (more content not included)... Normal [facility] Abdomen/Pelvis without Conto n 09-27-2024 Abdomen/Pelvis without Cont [facility] Imaging Services [address] [place] [address] Abdomen/Pelvis without Cont MR#: [id number] Acct: [id number] Name: JULIANA MERIDA Rep #: [id number] : 1960 F 63 From: Jaleel Loaiza MD PCP: Mariah Atkinson MD Status: REG ER Study: Abdomen/Pelvis without Cont Date of Exam: 09/12 01/06 Exam# [id number] Ordering Dr: Gregorio Cochran DO PROCEDURE: ABDOMEN/PELVIS [...] abdominal and pelvic viscera. There is now demf-gcvqbkz-olrh-right mild basilar patchy ill-defined ground-glass opacities of [...] dilation or free air. Status post appendectomy. [place] artifact from spinal stimulator device. Aortoiliac atherosclerotic calcification. No abdominal aortic aneurysm. The bladder appears within limits. No free fluid seen. Status post hysterectomy. The ovaries appear within limits on noncontrast imaging. [place] artifact from left femoral gamma nail. Small fat containing left inguinal hernia without stranding again noted. CT/Abdomen/Pelvis without Cont IMPRESSION: There is now qnfd-nbjqiib-trro-right mild basilar patchy ill-defined ground-glass opacities of [...] the liver. Status post cholecystectomy. Reading Location: [facility] CC: Mariah Atkinson MD; Dr. Gregorio Cochran DO Touch Up Painter Hand: Signed Normal [facility] Absolute lymphocyte countOrd ered By: Gregorio Cochran on 09-27-2024 Lymphocytes Auto (Unsp spec) [#/Vol] 2.73 10*3/uL 0.83-4.51 [facility] Absolute neutrophil countOrd ered By: Gregorio Cochran on 09-27-2024 Neutrophils (Bld) [#/Vol] 6.8 10*3/uL 2.0-7.7 [facility] Anion gap in Serum or Plasma Ordered By: Gregorio Cochran on 09-27-2024 Anion gap [Moles/Vol] 10 mmol/L 5-15 [facility] Automated lymphocyte count a s percentage of total leukocytesOrdered By: Gregorio Cochran on 09-27-2024 Lymphocytes/100 WBC Auto (Unsp spec) 25.9 % 19-41 [facility] BUN/creatinine ratioOrdered By: Gregorio Cochran on 09-27-2024 Urea nitrogen/Creatinine [Mass ratio] 12.7 mg/mg 10- [facility] Basic Metabolic Profile (BMP )on 09-27-2024 BUN/CRE 12.7 RATIO Normal - [facility] Comment on above: Performed By: #### L 400.0001 #### [facility] [address] [place], [address] Calcium [Mass/Vol] 9.5 mg/dL Normal 7.6-11.0 [facility] Comment on above: Performed By: #### L 400.0001 #### [facility] [address] [place], [address] Chloride [Moles/Vol] 99 mmol/L Normal 98-108 [facility] Comment on above: Performed By: #### L 400.0001 #### [facility] [address] [place], [address] CO2 [Moles/Vol] 27.1 mmol/L Normal 21.0-32.0 [facility] Comment on above: Performed By: #### L 400.0001 #### [facility] [address] [place], [address] Creatinine [Mass/Vol] 1.37 mg/dL High 0.70-1.20 [facility] Comment on above: Performed By: #### L 400.0001 #### [facility] [address] [place], [address] GAP 10 Normal 5-15 [facility] Comment on above: Performed By: #### L 400.0001 #### [facility] [address] [place], [address] GFR/1.73 sq M.predicted among non-blacks MDRD (S/P/Bld) [Vol rate/Area] 44 mL/min/{1.73_m2} Low >60 [facility] Comment on above: Result Comment: mL/m in/1.73m2 CKD-EPI Creatinine Equation (2020) Performed By: #### L 400.0001 #### [facility] [address] [place], [address] Glucose [Mass/Vol] 254 mg/dL High 70-99 [facility] Comment on above: Performed By: #### L 400.0001 #### [facility] [address] [place], [address] Potassium [Moles/Vol] 4.0 mmol/L Normal 3.3-5.1 [facility] Comment on above: Performed By: #### L 400.0001 #### [facility] [address] [place], [address] Sodium [Moles/Vol] 136 mmol/L Normal 133-145 [facility] Comment on above: Performed By: #### L 400.0001 #### [facility] [address] [place], [address] Urea nitrogen [Mass/Vol] 17 mg/dL Normal 4-19 [facility] Comment on above: Performed By: #### L 400.0001 #### [facility] [address] [place], [address] Basophil percentageOrdered B y: Gregorio Cochran on 09-27-2024 Basophils/100 WBC (Bld) 0.5 % 0-1 [facility] Bilirubin Test strip Ql (U)O rdered By: Gregorio Cochran on 09-27-2024 Bilirubin Ql (U) Negative Negative [facility] CBC W/Diff, Automatedon 09-12-2024 Absolute Lymph 2.73 X10 3/uL Normal 0.83-4.51 [facility] Comment on above: Performed By: #### L 400.0001 #### [facility] [address] [place], [address] Absolute Neut 6.8 X10 3/uL Normal 2.0-7.7 [facility] Comment on above: Performed By: #### L 400.0001 #### [facility] [address] [place], [address] Basophils/100 WBC (Bld) 0.5 % Normal 0-1 [facility] Comment on above: Performed By: #### L 400.0001 #### [facility] [address] [place], [address] Eosinophils/100 WBC (Bld) 0.8 % Normal 0-5 [facility] Comment on above: Performed By: #### L 400.0001 #### [facility] [address] [place], [address] Erythrocyte distribution width (RBC) [Ratio] 13.6 % Normal 11.6-14.6 [facility] Comment on above: Performed By: #### L 400.0001 #### [facility] [address] [place], [address] Hematocrit (Bld) [Volume fraction] 43.9 % Normal 37-47 [facility] Comment on above: Performed By: #### L 400.0001 #### [facility] [address] [place], [address] Hemoglobin (Bld) [Mass/Vol] 14.2 g/dL Normal 12.0-15.0 [facility] Comment on above: Performed By: #### L 400.0001 #### [facility] [address] [place], [address] IG% 0.500 Normal 0.0-0.9 [facility] Comment on above: Result Comment: IG% - Immature Granulocytes (promyelocytes, myelocytes and metamyelocytes) > 1% indicates that a LEFT SHIFT is Present. Performed By: #### L 400.0001 #### [facility] [address] [place], [address] Lymphocytes/100 WBC (Bld) 25.9 % Normal 19-41 [facility] Comment on above: Performed By: #### L 400.0001 #### [facility] [address] [place], [address] MCH (RBC) [Entitic mass] 29.3 pg Normal 27.0-32.0 [facility] Comment on above: Performed By: #### L 400.0001 #### [facility] [address] [place], [address] MCHC (RBC) [Mass/Vol] 32.3 g/dL Normal 32-36 [facility] Comment on above: Performed By: #### L 400.0001 #### [facility] [address] [place], [address] MCV (RBC) [Entitic vol] 90.7 fL Normal 81-99 [facility] Comment on above: Performed By: #### L 400.0001 #### [facility] [address] [place], [address] Monocytes/100 WBC (Bld) 7.7 % Normal 0-10 [facility] Comment on above: Performed By: #### L 400.0001 #### [facility] [address] [place], [address] Neutrophils/100 WBC (Bld) 64.6 % Normal 47-70 [facility] Comment on above: Performed By: #### L 400.0001 #### [facility] [address] [place], [address] Nucleated RBC (Bld) [#/Vol] 0 10*3/uL Normal 0-5 [facility] Comment on above: Performed By: #### L 400.0001 #### [facility] [address] [place], [address] Platelet mean volume (Bld) [Entitic vol] 10.1 fL Normal 6.2-12.0 [facility] Comment on above: Performed By: #### L 400.0001 #### [facility] [address] [place], [address] Platelets (Bld) [#/Vol] 214 10*3/uL Normal 150-450 [facility] Comment on above: Performed By: #### L 400.0001 #### [facility] [address] [place], [address] RBC (Bld) [#/Vol] 4.84 10*6/uL Normal 4.2-5.4 [facility] Comment on above: Performed By: #### L 400.0001 #### [facility] [address] [place], [address] RDW SD 44.8 fl High 35.1-43.9 [facility] Comment on above: Performed By: #### L 400.0001 #### [facility] [address] [place], [address] WBC (Bld) [#/Vol] 10.5 10*3/uL Normal 4.4-11.0 [facility] Comment on above: Performed By: #### L 400.0001 #### [facility] [address] [place], [address] Carbon dioxide, total [Moles /volume] in Central venous bloodOrdered By: Gregorio Cochran on 09-27-2024 CO2 [Moles/Vol] 27.1 mmol/L 21.0-32.0 [facility] Chloride assayOrdered By: Miguel Cochran on 09-27-2024 Chloride [Moles/Vol] 99 mmol/L 98-108 [facility] Emergency Department Summary on 09-27-2024 Emergency Department Summary [facility] Medical Records Department [address] [place] [address] Emergency Department Summary 09/27/24 MR#: [id number] Acct: [id number] Name: JULIANA MERIDA YANELI Rep #: [id number] : 1960 63 From: Gregorio Cochran DO PCP: Mariah Atkinson MD Status:DEP ER Location: ED HPI History of Present Illness Chief Complaint: Flank Pain Informant: patient and EMS Narrative Narrative: 63-year-old female from [facility] presenting to the emergency room via [...] She denies any dysuria frequency or hematuria [facility] Medical History Lives in [place] Hx of fracture of hip Wears glasses [...] bisacodyl 10 mg rectal suppository 10 mg WA .Q24 PRN PRN constipati on 12/18/22 Unknown [...] 3 mg (more content not included)... Normal [facility] Eosinophil percentageOrdered By: Gregorio Cochran on 09-27-2024 Eosinophils/100 WBC (Bld) 0.8 % 0-5 [facility] Epithelial cells.squamous LM Ql (Urine sed)Ordered By: Gregorio Cochran on 09-27-2024 Epithelial cells.squamous LM.HPF (Urine sed) [#/Area] 0 /[HPF] 5-10 [facility] Erythrocyte distribution wid th ratioOrdered By: Gregorio Cochran on 09-27-2024 Erythrocyte distribution width (RBC) [Ratio] 13.6 % 11.6-14.6 [facility] Erythrocyte distribution wid th standard deviationOrdered By: Gregorio Cochran on 09-27-2024 Erythrocyte distribution width (RBC) [Entitic vol] 44.8 fL High 35.1-43.9 [facility] Erythrocyte distribution width (RBC) [Ratio] 44.8 fl High 35.1-43.9 [facility] GFR/1.73 sq M.predicted augustin g non-blacks MDRD (S/P/Bld) [Vol rate/Area]Ordered By: Gregorio Cochran on 09-27-2024 Estimated GFR (MDRD) Non-Af Amer 44 Low >60 [facility] Comment on above: mL/min/1.73m2 CKD-EP I Creatinine Equation (2020) Glomerular filtration rate ( GFR) estimation/1.73 sq m using serum, plasma, or whole bOrdered By: Gregorio Cochran on 09-27-2024 GFR/1.73 sq M.predicted among non-blacks MDRD (S/P/Bld) [Vol rate/Area] 44 mL/min/{1.73_m2} Low >60 [facility] Comment on above: mL/min/1.73m2 CKD-EP I Creatinine Equation (2020) Glucose Ql (U)Ordered By: Miguel Cochran on 09-27-2024 Urine Glucose (UA) Normal mg/dl Normal [facility] Hematocrit Auto (Bld) [Volum e fraction]Ordered By: Gregorio Cochran on 09-27-2024 Hematocrit (Bld) [Volume fraction] 43.9 % 37-47 [facility] Hemoglobin measurementOrdere d By: Gregorio Cochran on 09-27-2024 Hemoglobin (Bld) [Mass/Vol] 14.2 g/dL 12.0-15.0 [facility] Immature granulocytes/100 WB C Auto (Bld)Ordered By: Gregorio Cochran on 09-27-2024 Immature granulocytes/100 WBC (Bld) 0.500 % 0.0-0.9 [facility] Comment on above: IG% - Immature Granu locytes (promyelocytes, myelocytes and metamyelocytes) > 1% indicates that a LEFT SHIFT is Present. Ketones Test strip Ql (U)Ord ered By: Gregorio Cochran on 09-27-2024 Ketones Ql (U) Negative Negative [facility] Lymphocytes Auto (Unsp spec) [#/Vol]Ordered By: Gregorio Cochran on 09-27-2024 Lymphocytes (Bld) [#/Vol] 2.73 10*3/uL 0.83-4.51 [facility] Lymphocytes/100 WBC Auto (Un sp spec)Ordered By: Gregorio Cochran on 09-27-2024 Lymphocytes/100 WBC (Bld) 25.9 % 19-41 [facility] MCV (mean corpuscular volume ) determinationOrdered By: Gregorio Cochran on 09-27-2024 MCV (RBC) [Entitic vol] 90.7 fL 81-99 [facility] Mean corpuscular hemoglobin (MCH) determinationOrdered By: Gregorio Cochran on 09-27-2024 MCH (RBC) [Entitic mass] 29.3 pg 27.0-32.0 [facility] Mean corpuscular hemoglobin concentration (MCHC) determinationOrdered By: Gregorio Cochran on 09-27-2024 MCHC (RBC) [Mass/Vol] 32.3 g/dL 32-36 [facility] Mean platelet volume determi nationOrdered By: Gregorio Cochran on 09-27-2024 Platelet mean volume (Bld) [Entitic vol] 10.1 fL 6.2-12.0 [facility] Microscopic analysis of urin e for red blood cells (RBC)Ordered By: Gregorio Cochran on 09-27-2024 Microscopic analysis of urine for red blood cells (RBC) 0-5 SEEN /hpf 0-5 [facility] Urine RBC 0-5 SEEN /hpf 0-5 [facility] Monocyte percentageOrdered B y: Gregorio Cochran on 09-27-2024 Monocytes/100 WBC (Bld) 7.7 % 0-10 [facility] Mucus LM Ql (Urine sed)Order ed By: Gregorio Cochran on 09-27-2024 Mucus Ql (Urine sed) 0 SEEN /hpf [facility] Neutrophil percentageOrdered By: Gregorio Cochran on 09-27-2024 Neutrophils/100 WBC (Bld) 64.6 % 47-70 [facility] Nitrite Test strip Ql (U)Ord ered By: Gregorio Cochran on 09-27-2024 Nitrite Ql (U) Negative Negative [facility] Nucleated red blood cell per centageOrdered By: Gregorio Cochran on 09-27-2024 Nucleated RBC/100 WBC (Bld) [Ratio] 0 % 0-5 [facility] Platelet countOrdered By: Miguel Cochran on 09-27-2024 Platelets (Bld) [#/Vol] 214 10*3/uL 150-450 [facility] Potassium (Unsp spec) [Mass/ Vol]Ordered By: Gregorio Cochran on 09-27-2024 Potassium [Moles/Vol] 4.0 mmol/L 3.3-5.1 [facility] Potassium measurement (mass/ volume)Ordered By: Gregorio Cochran on 09-27-2024 Potassium (Unsp spec) [Mass/Vol] 4.0 mmol/L 3.3-5.1 [facility] Protein Test strip Ql (U)Ord ered By: Gregorio Cochran on 09-27-2024 Protein Ql (U) Negative Negative [facility] RBC Auto (Bld) [#/Vol]Ordere d By: Gregorio Cochran on 09-27-2024 RBC (Bld) [#/Vol] 4.84 10*6/uL 4.2-5.4 [facility] Serum creatinine measurement (mass/volume)Ordered By: Gregorio Cochran on 09-27-2024 Creatinine [Mass/Vol] 1.37 mg/dL High 0.70-1.20 [facility] Serum glucose measurement (m ass/volume)Ordered By: Gregorio Cochran on 09-27-2024 Glucose [Mass/Vol] 254 mg/dL High 70-99 [facility] Serum or plasma calcium fabi urement (mass/volume)Ordered By: Gregorio Cochran on 09-27-2024 Calcium [Mass/Vol] 9.5 mg/dL 7.6-11.0 [facility] Serum or plasma urea nitroge n measurement (mass/volume)Ordered By: Gregorio Cochran on 09-27-2024 Urea nitrogen [Mass/Vol] 17 mg/dL 4-19 [facility] Sodium levelOrdered By: Camron Cochran on 09-27-2024 Sodium [Moles/Vol] 136 mmol/L 133-145 [facility] Squamous epithelial cells de tection in urine sediment by light microscopyOrdered By: Gregorio Cochran on 09-27-2024 Epithelial cells.squamous LM Ql (Urine sed) 0-5 SEEN /hpf 5-10 [facility] Urinalysis, Completeon 09-27 BACTERIA 3+ /hpf Normal None Seen [facility] Comment on above: Order Comment: COLLE CTOR TO SPECIFY Performed By: #### L 400.0001 #### [facility] [address] [place], [address] EPI,SQUAMOUS 0-5 SEEN Normal 5-10 [facility] Comment on above: Order Comment: COLLE CTOR TO SPECIFY Performed By: #### L 400.0001 #### [facility] [address] [place], [place], [id number] RBC 0-5 SEEN Normal 0-5 [facility] Comment on above: Order Comment: COLLE CTOR TO SPECIFY Performed By: #### L 400.0001 #### [facility] [address] [place], [place], [id number] WBC 0-5 SEEN Normal 0-5 [facility] Comment on above: Order Comment: COLLE CTOR TO SPECIFY Performed By: #### L 400.0001 #### [facility] [address] [facility] [place], [address] Mucus Ql (Urine sed) 0 SEEN Normal [facility] Comment on above: Order Comment: MASHA CTOR TO SPECIFY Performed By: #### L 400.0001 #### [facility] [address] [place], [address] Urine blood detectionOrdered By: Gregorio Cochran on 09-27-2024 Urine Occult Blood 25 /ul High Negative [facility] Urine clarityOrdered By: Kris Cochran on 09-27-2024 Clarity (U) Clear Clear [facility] Urine color determinationOrd ered By: Gregorio Cochran on 09-27-2024 Color (U) Yellow Yellow [facility] Urine glucose detectionOrder ed By: Gregorio Cochran on 09-27-2024 Glucose Ql (U) Normal mg/dl Normal [facility] Urine leukocyte esterase det ection by dipstickOrdered By: Gregorio Cochran on 09-27-2024 Leukocyte esterase Test strip Ql (U) 25 /ul High Negative [facility] Urine pHOrdered By: Gregorio mercer on 09-27-2024 pH (U) 6.5 [pH] 5.0 - 8.0 [facility] Urine sediment bacteria coun t by microscopy (number/high power field)Ordered By: Gregorio Cochran on 09-27-2024 Bacteria LM.HPF (Urine sed) [#/Area] 3 /[HPF] None Seen [facility] Urine specific gravity measu rementOrdered By: Gregorio Cochran on 09-27-2024 Specific gravity (U) [Rel density] 1.010 1.002-1.03 0 [facility] Urine urobilinogen measureme ntOrdered By: Gregorio Cochran on 09-27-2024 Urobilinogen Ql (U) Normal mg/dl Normal [facility] Urobilinogen Ql (U)Ordered B y: Gregorio Cochran on 09-27-2024 Urine Urobilinogen Normal mg/dl Normal [facility] White blood cell (WBC) count Ordered By: Gregorio Cochran on 03-16-2025 WBC (Bld) [#/Vol] 10.5 10*3/uL 4.4-11.0 [facility] White blood cell countOrdere d By: Gregorio Dimas on 09-27-2024 Urine WBC 0-5 SEEN /hpf 0-5 [facility] White blood cell count 0-5 SEEN /hpf 0-5 [facility] Abdomen/Pelvis without Conto n 09-12-2024 Abdomen/Pelvis without Cont [facility] Imaging Services [address] [place], [place] [address] Abdomen/Pelvis without Cont MR#: [id number] Acct: [id number] Name: JULIANA MERIDA Rep #: [id number] : 1960 F 63 From: Ronaldo Stevenson PCP: Mariah Atkinson MD Status: [facility] ER Study: Abdomen/Pelvis without Cont Date of Exam: 08/08 Exam# [id number] Ordering Dr: Dino Pena MD PROCEDURE: ABDOMEN/PELVIS [...] use of iterative reconstruction technique). Reading Location: [facility] CC: Mariah Atkisnon MD; Dr. Dino Pena MD Touch Up Painter Hand: Signed Normal [facility] Absolute neutrophil countOrd ered By: Dino Pena on 09-12-2024 Neutrophils (Bld) [#/Vol] 13.0 10*3/uL High 2.0-7.7 [facility] Amorphous sediment detection in urine sediment by light microscopyOrdered By: Dino Pena on 09-12-2024 Amorphous sediment LM Ql (Urine sed) 1+ URATE [facility] BUN/creatinine ratioOrdered By: Dino Pena on 09-12-2024 Urea nitrogen/Creatinine [Mass ratio] 16.2 mg/mg 10-20 [facility] Basic Metabolic Profile (BMP )on 09-12-2024 Anion gap [Moles/Vol] 14 mmol/L Normal 5-15 [facility] Comment on above: Performed By: #### L 100.0100, L500.2500 #### [facility] [address] [place], [address] BUN/CRE 16.2 RATIO Normal -20 [facility] Comment on above: Performed By: #### L 100.0100, L500.2500 #### [facility] [address] [place], [address] Calcium [Mass/Vol] 9.3 mg/dL Normal 7.6-11.0 [facility] Comment on above: Performed By: #### L 100.0100, L500.2500 #### [facility] [address] [place], [address] Chloride [Moles/Vol] 94 mmol/L Low 96-108 [facility] Comment on above: Performed By: #### L 100.0100, L500.2500 #### [facility] [address] [place], [address] CO2 [Moles/Vol] 23.3 mmol/L Normal 22.0-29.0 [facility] Comment on above: Performed By: #### L 100.0100, L500.2500 #### [facility] [address] [place], [address] Creatinine [Mass/Vol] 1.29 mg/dL High 0.70-1.20 [facility] Comment on above: Performed By: #### L 100.0100, L500.2500 #### [facility] [address] [place], [address] ECRCL 50.34 ml/min Normal 50-250 [facility] Comment on above: Performed By: #### L 100.0100, L500.2500 #### [facility] [address] [place], [address] GFR/1.73 sq M.predicted among non-blacks MDRD (S/P/Bld) [Vol rate/Area] 47 mL/min/{1.73_m2} Low >60 [facility] Comment on above: Result Comment: mL/m in/1.73m2 CKD-EPI Creatinine Equation (2020) Performed By: #### L 100.0100, L500.2500 #### [facility] [address] [place], [address] Glucose [Mass/Vol] 239 mg/dL High 70-99 [facility] Comment on above: Performed By: #### L 100.0100, L500.2500 #### [facility] [address] [place], [address] Potassium [Moles/Vol] 4.3 mmol/L Normal 3.3-5.1 [facility] Comment on above: Performed By: #### L 100.0100, L500.2500 #### [facility] [address] [place], [address] Sodium [Moles/Vol] 132 mmol/L Low 133-145 [facility] Comment on above: Performed By: #### L 100.0100, L500.2500 #### [facility] [address] [place], [address] Urea nitrogen [Mass/Vol] 21 mg/dL High 4-19 [facility] Comment on above: Performed By: #### L 100.0100, L500.2500 #### [facility] [address] [place], [address] Basophil percentageOrdered B y: Dino Pena on 09-12-2024 Basophils/100 WBC (Bld) 0.4 % 0-1 [facility] Bilirubin Test strip Ql (U)O rdered By: Dino Pena on 09-12-2024 Bilirubin Ql (U) Negative Negative [facility] CBC W/Diff, Automatedon 03-0 Absolute Lymph 2.44 X10 3/uL Normal 0.83-4.51 [facility] Comment on above: Performed By: #### L 100.0100, L500.2500 #### [facility] [address] [place], [address] Absolute Neut 13.0 X10 3/uL High 2.0-7.7 [facility] Comment on above: Performed By: #### L 100.0100, L500.2500 #### [facility] [address] [place] [place], [address] Basophils/100 WBC (Bld) 0.4 % Normal 0-1 [facility] Comment on above: Performed By: #### L 100.0100, L500.2500 #### [facility] [address] [place], [address] Eosinophils/100 WBC (Bld) 0.2 % Normal 0-5 [facility] Comment on above: Performed By: #### L 100.0100, L500.2500 #### [facility] [address] [place], [address] Erythrocyte distribution width (RBC) [Ratio] 13.6 % Normal 11.6-14.6 [facility] Comment on above: Performed By: #### L 100.0100, L500.2500 #### [facility] [address] [place], [address] Hematocrit (Bld) [Volume fraction] 45.5 % Normal 37-47 [facility] Comment on above: Performed By: #### L 100.0100, L500.2500 #### [facility] [address] [place], [address] Hemoglobin (Bld) [Mass/Vol] 14.7 g/dL Normal 12.0-15.0 [facility] Comment on above: Performed By: #### L 100.0100, L500.2500 #### [facility] [address] [place], [address] IG% 0.700 Normal 0.0-0.9 [facility] Comment on above: Result Comment: IG% - Immature Granulocytes (promyelocytes, myelocytes and metamyelocytes) > 1% indicates that a LEFT SHIFT is Present. Performed By: #### L 100.0100, L500.2500 #### [facility] [address] [place], [address] Lymphocytes/100 WBC (Bld) 14.6 % Low 19-41 [facility] Comment on above: Performed By: #### L 100.0100, L500.2500 #### [facility] [address] [place], [address] MCH (RBC) [Entitic mass] 28.9 pg Normal 27.0-32.0 [facility] Comment on above: Performed By: #### L 100.0100, L500.2500 #### [facility] [address] [place], [address] MCHC (RBC) [Mass/Vol] 32.3 g/dL Normal 32-36 [facility] Comment on above: Performed By: #### L 100.0100, L500.2500 #### [facility] [address] [place], [address] MCV (RBC) [Entitic vol] 89.4 fL Normal 81-99 [facility] Comment on above: Performed By: #### L 100.0100, L500.2500 #### [facility] [address] [place], [address] Monocytes/100 WBC (Bld) 6.7 % Normal 0-10 [facility] Comment on above: Performed By: #### L 100.0100, L500.2500 #### [facility] [address] [place], [address] Neutrophils/100 WBC (Bld) 77.4 % High 47-70 [facility] Comment on above: Performed By: #### L 100.0100, L500.2500 #### [facility] [address] [place], [address] Nucleated RBC (Bld) [#/Vol] 0 10*3/uL Normal 0-5 [facility] Comment on above: Performed By: #### L 100.0100, L500.2500 #### [facility] [address] [place], [address] Platelet mean volume (Bld) [Entitic vol] 10.2 fL Normal 6.2-12.0 [facility] Comment on above: Performed By: #### L 100.0100, L500.2500 #### [facility] [address] [place], [address] Platelets (Bld) [#/Vol] 272 10*3/uL Normal 150-450 [facility] Comment on above: Performed By: #### L 100.0100, L500.2500 #### [facility] [address] [place], [address] RBC (Bld) [#/Vol] 5.09 10*6/uL Normal 4.2-5.4 [facility] Comment on above: Performed By: #### L 100.0100, L500.2500 #### [facility] [address] [place], [address] RDW SD 44.4 fl High 35.1-43.9 [facility] Comment on above: Performed By: #### L 100.0100, L500.2500 #### [facility] [address] [place], [address] WBC (Bld) [#/Vol] 16.8 10*3/uL High 4.4-11.0 [facility] Comment on above: Performed By: #### L 100.0100, L500.2500 #### [facility] [address] [place], [address] Carbon dioxide measurementOr dered By: Dino Pena on 09-12-2024 CO2 [Moles/Vol] 23.3 mmol/L 22.0-29.0 [facility] Chloride measurementOrdered By: Dino Pena on 09-12-2024 Chloride [Moles/Vol] 94 mmol/L Low 96-108 [facility] Emergency Department Summary on 09-12-2024 Emergency Department Summary [facility] Medical Records Department [address] [place] [address] Emergency Department Summary 09/12/24 MR#: [id number] Acct: [id number] Name: JULIANA MERIDA YANELI Rep #: [id number] : 1960 63 From: Dino Pena MD PCP: Mariah Atkinson MD Status:DEP ER Location: ED HPI HPI - GI History of Present Illness Chief Complaint: Flank Pain Informant: patient and EMS Narrative Narrative: 63-year-old alf patient presenting with pain in her right [...] ago. She has seen a urologist in [place] but she cannot remember who it was. She denies any hematuria she is on Eliquis. She denies any cough, shortness of breath, fevers or chills or other symptoms. [facility] Medical History Lives in [place] Hx of fracture of hip Wears glasses [...] bisacodyl 10 mg rectal suppository 10 mg WA .Q24 PRN PRN constipati on 12/18/22 Unknown History (Dulcolax (bisacodyl)) bisacodyl 5 mg tablet,delayed 5 mg PO Q8H PRN PRN constipation 0 12/18/22 Unknown History release (Dulcolax (bisacodyl)) cholecalciferol (vitamin D3) 125 125 mcg PO DAILY 12/18/22 Unknown History mcg (5,000 unit) capsule diclofenac sodium 1 % topical gel 2 g topical Q8H PRN PRN pain 0 01/04 Unknown History epinephrine 0.3 mg/0.3 mL [...] 12/18/22 Un (more content not included)... Normal [facility] Eosinophil percentageOrdered By: Dino Pena on 09-12-2024 Eosinophils/100 WBC (Bld) 0.2 % 0-5 [facility] Epithelial cells.squamous LM Ql (Urine sed)Ordered By: Dino Pena on 09-12-2024 Epithelial cells.squamous LM.HPF (Urine sed) [#/Area] 0 /[HPF] 5-10 [facility] Erythrocyte distribution wid th ratioOrdered By: Dino Pena on 09-12-2024 Erythrocyte distribution width (RBC) [Ratio] 13.6 % 11.6-14.6 [facility] Erythrocyte distribution wid th standard deviationOrdered By: Dino Pena on 09-12-2024 Erythrocyte distribution width (RBC) [Entitic vol] 44.4 fL High 35.1-43.9 [facility] Estimation of creatinine bret aranceOrdered By: Dino Pena on 09-12-2024 Estimated Creatinine Clearance Calc 50.34 ml/min 50-250 [facility] GFR/1.73 sq M.predicted augustin g non-blacks MDRD (S/P/Bld) [Vol rate/Area]Ordered By: Dino Pena on 09-12-2024 Estimated GFR (MDRD) Non-Af Amer 47 Low >60 [facility] Comment on above: mL/min/1.73m2 CKD-EP I Creatinine Equation (2020) Glucose Ql (U)Ordered By: Navya Pena on 09-12-2024 Urine Glucose (UA) Normal mg/dl Normal [facility] Hematocrit Auto (Bld) [Volum e fraction]Ordered By: Dino Pena on 09-12-2024 Hematocrit (Bld) [Volume fraction] 45.5 % 37-47 [facility] Hemoglobin measurementOrdere d By: Dino Pena on 09-12-2024 Hemoglobin (Bld) [Mass/Vol] 14.7 g/dL 12.0-15.0 [facility] Immature granulocytes/100 WB C Auto (Bld)Ordered By: Dino Pena on 09-12-2024 Immature granulocytes/100 WBC (Bld) 0.700 % 0.0-0.9 [facility] Comment on above: IG% - Immature Granu locytes (promyelocytes, myelocytes and metamyelocytes) > 1% indicates that a LEFT SHIFT is Present. Ketones Test strip Ql (U)Ord ered By: Dino Pena on 09-12-2024 Ketones Ql (U) Negative Negative [facility] Lymphocytes Auto (Unsp spec) [#/Vol]Ordered By: Dino Pena on 09-12-2024 Lymphocytes (Bld) [#/Vol] 2.44 10*3/uL 0.83-4.51 [facility] Lymphocytes/100 WBC Auto (Un sp spec)Ordered By: Dino Pena on 09-12-2024 Lymphocytes/100 WBC (Bld) 14.6 % Low 19-41 [facility] MCV (mean corpuscular volume ) determinationOrdered By: Dino Pena on 09-12-2024 MCV (RBC) [Entitic vol] 89.4 fL 81-99 [facility] Mean corpuscular hemoglobin (MCH) determinationOrdered By: Dino Pena on 09-12-2024 MCH (RBC) [Entitic mass] 28.9 pg 27.0-32.0 [facility] Mean corpuscular hemoglobin concentration (MCHC) determinationOrdered By: Dino Pena on 09-12-2024 MCHC (RBC) [Mass/Vol] 32.3 g/dL 32-36 [facility] Mean platelet volume determi nationOrdered By: Dino Pena on 09-12-2024 Platelet mean volume (Bld) [Entitic vol] 10.2 fL 6.2-12.0 [facility] Microscopic analysis of urin e for red blood cells (RBC)Ordered By: Dino Pena on 09-12-2024 Urine RBC 25-50 SEEN /hpf 0-5 [facility] Monocyte percentageOrdered B y: Dino Pena on 09-12-2024 Monocytes/100 WBC (Bld) 6.7 % 0-10 [facility] Mucus LM Ql (Urine sed)Order ed By: Dino Pena on 09-12-2024 Mucus Ql (Urine sed) 0 SEEN /hpf [facility] Neutrophil percentageOrdered By: Dino Pena on 09-12-2024 Neutrophils/100 WBC (Bld) 77.4 % High 47-70 [facility] Nitrite Test strip Ql (U)Ord ered By: Dino Pena on 09-12-2024 Nitrite Ql (U) Negative Negative [facility] Nucleated red blood cell per centageOrdered By: Dino Pena on 09-12-2024 Nucleated RBC/100 WBC (Bld) [Ratio] 0 % 0-5 [facility] Platelet countOrdered By: Navya Pena on 09-12-2024 Platelets (Bld) [#/Vol] 272 10*3/uL 150-450 [facility] Protein Test strip Ql (U)Ord ered By: Dino Pena on 09-12-2024 Protein Ql (U) 15 mg/dl High Negative [facility] RBC Auto (Bld) [#/Vol]Ordere d By: Dino Pena on 09-12-2024 RBC (Bld) [#/Vol] 5.09 10*6/uL 4.2-5.4 [facility] Serum creatinine measurement (mass/volume)Ordered By: Dino Pena on 09-12-2024 Creatinine [Mass/Vol] 1.29 mg/dL High 0.70-1.20 [facility] Serum glucose measurement (m ass/volume)Ordered By: Dino Pena on 09-12-2024 Glucose [Mass/Vol] 239 mg/dL High 70-99 [facility] Serum or plasma anion gap de termination (moles/volume)Ordered By: Dino Pena on 09-12-2024 Anion gap [Moles/Vol] 14 mmol/L 5-15 [facility] Serum or plasma calcium fabi urement (mass/volume)Ordered By: Dino Pena on 09-12-2024 Calcium [Mass/Vol] 9.3 mg/dL 7.6-11.0 [facility] Serum or plasma potassium me asurementOrdered By: Dino Pena on 09-12-2024 Potassium [Moles/Vol] 4.3 mmol/L 3.3-5.1 [facility] Serum or plasma sodium measu rement (moles/volume)Ordered By: Dino Pena on 09-12-2024 Sodium [Moles/Vol] 132 mmol/L Low 133-145 [facility] Serum or plasma urea nitroge n measurement (mass/volume)Ordered By: Dino Pena on 09-12-2024 Urea nitrogen [Mass/Vol] 21 mg/dL High 4-19 [facility] Urinalysis, Completeon 09-12 AMORPHOUS 1+ URATE Normal [facility] Comment on above: Order Comment: MASHA MCDONNELLOR TO SPECIFY Performed By: #### L 400.0001 #### [facility] [address] [place], [address] EPI,SQUAMOUS 0-5 SEEN Normal 5-10 [facility] Comment on above: Order Comment: MASHA MCDONNELLOR TO SPECIFY Performed By: #### L 400.0001 #### [facility] [address] [place], [address] RBC 25-50 SEEN Normal 0-5 [facility] Comment on above: Order Comment: MASHA MCDONNELLOR TO SPECIFY Performed By: #### L 400.0001 #### [facility] [address] [place], [address] WBC 0-5 SEEN Normal 0-5 [facility] Comment on above: Order Comment: MASHA CTOR TO SPECIFY Performed By: #### L 400.0001 #### [facility] [address] [place], [address] BACTERIA 0 SEEN Normal None Seen [facility] Comment on above: Order Comment: COLLE CTOR TO SPECIFY Performed By: #### L 400.0001 #### [facility] [address] [place], [place], [address] Mucus Ql (Urine sed) 0 SEEN Normal [facility] Comment on above: Order Comment: MASHA CTOR TO SPECIFY Performed By: #### L 400.0001 #### [facility] [address] [place], [place], [address] Urine blood detectionOrdered By: Dino Pena on 09-12-2024 Urine Occult Blood 250 /ul High Negative [facility] Urine clarityOrdered By: Migdalia Pena on 09-12-2024 Clarity (U) Sl. Cloudy Clear [facility] Urine color determinationOrd ered By: Dino Pena on 09-12-2024 Color (U) Yellow Yellow [facility] Urine leukocyte esterase det ection by dipstickOrdered By: Dino Pena on 09-12-2024 Leukocyte esterase Test strip Ql (U) 25 /ul High Negative [facility] Urine pHOrdered By: Dino Pena on 09-12-2024 pH (U) 5.0 [pH] 5.0 - 8.0 [facility] Urine sediment bacteria coun t by microscopy (number/high power field)Ordered By: Dino Pena on 09-12-2024 Bacteria LM.HPF (Urine sed) [#/Area] 0 /[HPF] None Seen [facility] Urine specific gravity measu rementOrdered By: Dino Pena on 09-12-2024 Specific gravity (U) [Rel density] 1.020 1.002-1.03 0 [facility] Urobilinogen Ql (U)Ordered B y: Dino Pena on 09-12-2024 Urine Urobilinogen Normal mg/dl Normal [facility] White blood cell (WBC) count Ordered By: Dino Pena on 09-12-2024 WBC (Bld) [#/Vol] 16.8 10*3/uL High 4.4-11.0 [facility] White blood cell countOrdere d By: Dino Pena on 09-12-2024 Urine WBC 0-5 SEEN /hpf 0-5 [facility] CNPNon 07-16-2024 CNPN Telephone (AGRHEUHWN ) -------- JULIANA MERIDA ([id number]) 1960 F Date Time Provider Department 07/16/24 IJEOMA POPEARIKA [facility]GR[facility]N During your visit today, we recorded the following information about you: Sandra Dunn 07/16/2024 9:45 AM Signed [employer] [employer] Approved [id number] [facility] Medicare/Portal 07.15.24-07.15.25 2 visits Sandra Corado, Scales Inspector Allergies As of Date: 07/16/2024 Noted Allergy [...] RN - Fully Assessed Reason for Visit: Medication Preauthorization [914] Cmt: [employer]- [employer] Approved [id number] [facility] Medicare/Portal 07.15.24-07.15.25 2 visits Prescriptions as [...] hours as needed for cough. - Ipratropium [place] (ATROVENT) 21 mcg (0.03 %) nasal spray [...] to right ankle diabetic ulcer topically every night monitor for DM ulcer - Dyclonine (SUCRETS SORE THROAT) 2 mg lozg Use as instructed. - insulin glargine,hum.rec.anlog (TOUJEO MAX U-300 SOLOSTAR SUBCUTANEOUS) Inject subcutaneously as directed. - qgvjqjdlltg-uhokrgoqa-el lanter (TRELEGY ELLIPTA) 200-62.5-25 mcg inhalation powder [...] (more content not included)... Normal [facility] MA MAMMOGRAM SCREENING BILAT ERAL W/TOMOon 06-05-2024 MA MAMMOGRAM SCREENING BILATERAL W/SHEREE ORIGINAL FROM: [facility] [address] [place] [address] PROCEDURE FOR: JULIANA MERIDA [address] [place] [address] Home: PID#: [id number] Exam#: [id number] : 1960 Age: 63 TO: FLORENTIN HANSEN COUNTS INCLUDE 234 BEDS AT [facility] [address] [place] [address] EXAMINATION: SCREENING DIGITAL BILATERAL MAMMOGRAM WITH TOMOSYNTHESIS, [...] Continued screening with annual mammograms is recommended. Tyrer Cuzick risk calculations, generated with the history provided, [...] addition to annual mammographic screening per the [employer]. BIRADS: BI-RADS: 2: Benign RECALL: 1 year screening RECALL TYPE: mammo LETTER SENT: Normal BI-RADS 1 and 2 Interpreted by: Suresh Ruiz MD Preliminary Report By: Suresh Ruiz MD Electronically signed By Suresh Ruiz MD Dictated Date: 06/05/2024 3:28:32 PM Prelim Date: 06/05/2024 3:30:24 PM Sign Date: 06/05/2024 3:30:24 PM Ordering Provider: FLORENTIN HANSEN CLINICAL: BASELINE. Panel Machine Setter: LASHONDA CHAN RT(R)(M) letter sent: Normal BI-RADS 1 and 2 Mammogram BI-RADS: 2 Benign Normal [facility] Abdomen/Pelvis without Conto n 04-08-2024 Abdomen/Pelvis without Cont [facility] Imaging Services [address] [place], [place] [address] Abdomen/Pelvis without Cont MR#: [id number] Acct: [id number] Name: JULIANA MERIDA Rep #: [id number] : 1960 F 63 From: Rancho Mares MD PCP: Bianca Palomares MD Status: DEP ER Study: Abdomen/Pelvis without Cont Date of Exam: 03/16 12/05 Exam# [id number] Ordering Dr: Rancho Orozco DO [id number] EXAM: CT ABDOMEN AND PELVIS WITHOUT INTRAVENOUS [...] ID and State: [facility] / [place] Tel , Service support , CC: Rancho Orozco DO; Bianca Palomares MD Touch Up Painter Hand: Signed Normal [facility] Basic Metabolic Profile (BMP )on 04-08-2024 BUN/CRE 19.6 RATIO Normal 10-20 [facility] Comment on above: Order Comment: RESUL T(S) PREVIOUSLY REPORTED ON MANUAL REQUISITION DURINGDOWNTIME. Performed By: #### L 100.0100, L500.2500, L400.0001 ####[facility] [address] [place], [address] CA,Total 9.3 mg/dL Normal 8.5-10.1 [facility] Comment on above: Order Comment: RESUL T(S) PREVIOUSLY REPORTED ON MANUAL REQUISITION DURINGDOWNTIME. Performed By: #### L 100.0100, L500.2500, L400.0001 ####[facility] [address] [place], [address] Chloride [Moles/Vol] 101 mmol/L Normal 98-107 [facility] Comment on above: Order Comment: RESUL T(S) PREVIOUSLY REPORTED ON MANUAL REQUISITION DURINGDOWNTIME. Performed By: #### L 100.0100, L500.2500, L400.0001 ####[facility] [address] [place], [address] CO2 [Moles/Vol] 29.0 mmol/L Normal 21.0-32.0 [facility] Comment on above: Order Comment: RESUL T(S) PREVIOUSLY REPORTED ON MANUAL REQUISITION DURINGDOWNTIME. Performed By: #### L 100.0100, L500.2500, L400.0001 ####[facility] [address] [place], [address] Creatinine [Mass/Vol] 1.02 mg/dL Normal 0.55-1.02 [facility] Comment on above: Order Comment: RESUL T(S) PREVIOUSLY REPORTED ON MANUAL REQUISITION DURINGDOWNTIME. Result Comment: The validity of the calculated GFR GFRAA in patients over 70 years has not been determined. Clinical correlation is essential. Performed By: #### L 100.0100, L500.2500, L400.0001 ####[facility] [address] [place], [address] ECRCL 62.65 ml/min Normal [facility] Comment on above: Order Comment: RESUL T(S) PREVIOUSLY REPORTED ON MANUAL REQUISITION DURINGDOWNTIME. Performed By: #### L 100.0100, L500.2500, L400.0001 ####[facility] [address] [place], [address] EST GFR - AA 70 mL/min Normal >60 [facility] Comment on above: Order Comment: RESUL T(S) PREVIOUSLY REPORTED ON MANUAL REQUISITION DURINGDOWNTIME. Performed By: #### L 100.0100, L500.2500, L400.0001 ####[facility] [address] [place], [address] GAP 7 Normal 5-15 [facility] Comment on above: Order Comment: RESUL T(S) PREVIOUSLY REPORTED ON MANUAL REQUISITION DURINGDOWNTIME. Performed By: #### L 100.0100, L500.2500, L400.0001 ####[facility] [address] [place], [address] GFR/1.73 sq M.predicted among non-blacks MDRD (S/P/Bld) [Vol rate/Area] 58 mL/min/{1.73_m2} Low >60 [facility] Comment on above: Order Comment: RESUL T(S) PREVIOUSLY REPORTED ON MANUAL REQUISITION DURINGDOWNTIME. Performed By: #### L 100.0100, L500.2500, L400.0001 ####[facility] [address] [place], [address] Glucose [Mass/Vol] 135 mg/dL High 74-106 [facility] Comment on above: Order Comment: RESUL T(S) PREVIOUSLY REPORTED ON MANUAL REQUISITION DURINGDOWNTIME. Result Comment: Fast ing Glucose result greater than or equal to 126 mg/dL suggests DIABETES MELLITUS per A.D.A. criteria. Performed By: #### L 100.0100, L500.2500, L400.0001 ####[facility] [address] [place], [address] Potassium [Moles/Vol] 3.3 mmol/L Low 3.5-5.1 [facility] Comment on above: Order Comment: RESUL T(S) PREVIOUSLY REPORTED ON MANUAL REQUISITION DURINGDOWNTIME. Performed By: #### L 100.0100, L500.2500, L400.0001 ####[facility] [address] [place], [address] Sodium [Moles/Vol] 137 mmol/L Normal 136-145 [facility] Comment on above: Order Comment: RESUL T(S) PREVIOUSLY REPORTED ON MANUAL REQUISITION DURINGDOWNTIME. Performed By: #### L 100.0100, L500.2500, L400.0001 ####[facility] [address] [place], [address] Urea nitrogen [Mass/Vol] 20 mg/dL High 7-18 [facility] Comment on above: Order Comment: RESUL T(S) PREVIOUSLY REPORTED ON MANUAL REQUISITION DURINGDOWNTIME. Performed By: #### L 100.0100, L500.2500, L400.0001 ####[facility] [address] [place], [address] CBC W/Diff, Automatedon -08 19-2023 Basophils/100 WBC (Bld) 0.4 % Normal 0-1 [facility] Comment on above: Performed By: #### L 100.0100, L500.2500, L400.0001 ####[facility] [address] [place], [address] Eosinophils/100 WBC (Bld) 0.6 % Normal 0-5 [facility] Comment on above: Performed By: #### L 100.0100, L500.2500, L400.0001 ####[facility] [address] [place], [address] IG% 0.800 Normal 0.0-0.9 [facility] Comment on above: Result Comment: IG% - Immature Granulocytes (promyelocytes, myelocytes and metamyelocytes) > 1% indicates that a LEFT SHIFT is Present. Performed By: #### L 100.0100, L500.2500, L400.0001 ####[facility] [address] [place], [address] Lymphocytes/100 WBC (Bld) 22.9 % Normal 19-41 [facility] Comment on above: Performed By: #### L 100.0100, L500.2500, L400.0001 ####[facility] [address] [place], [address] Monocytes/100 WBC (Bld) 6.9 % Normal 0-10 [facility] Comment on above: Performed By: #### L 100.0100, L500.2500, L400.0001 ####[facility] [address] [place], [address] Neutrophils/100 WBC (Bld) 68.4 % Normal 47-70 [facility] Comment on above: Performed By: #### L 100.0100, L500.2500, L400.0001 ####[facility] [address] [place], [address] Erythrocyte distribution width (RBC) [Ratio] 13.5 % Normal 11.6-14.6 [facility] Comment on above: Performed By: #### L 100.0100, L500.2500, L400.0001 ####[facility] [address] [place], [address] Hematocrit (Bld) [Volume fraction] 42.9 % Normal 37-47 [facility] Comment on above: Performed By: #### L 100.0100, L500.2500, L400.0001 ####[facility] [address] [place], [address] Hemoglobin (Bld) [Mass/Vol] 14.5 g/dL Normal 12.0-15.0 [facility] Comment on above: Performed By: #### L 100.0100, L500.2500, L400.0001 ####[facility] [address] [place], [address] MCH (RBC) [Entitic mass] 29.7 pg Normal 27.0-32.0 [facility] Comment on above: Performed By: #### L 100.0100, L500.2500, L400.0001 ####[facility] [address] [place], [address] MCHC (RBC) [Mass/Vol] 33.8 g/dL Normal 32-36 [facility] Comment on above: Performed By: #### L 100.0100, L500.2500, L400.0001 ####[facility] [address] [place], [address] MCV (RBC) [Entitic vol] 87.9 fL Normal 81-99 [facility] Comment on above: Performed By: #### L 100.0100, L500.2500, L400.0001 ####[facility] [address] [place], [address] Platelet mean volume (Bld) [Entitic vol] 9.9 fL Normal 6.2-12.0 [facility] Comment on above: Performed By: #### L 100.0100, L500.2500, L400.0001 ####[facility] [address] [place], [address] Platelets (Bld) [#/Vol] 200 10*3/uL Normal 150-450 [facility] Comment on above: Performed By: #### L 100.0100, L500.2500, L400.0001 ####[facility] [address] [place], [address] RBC (Bld) [#/Vol] 4.88 10*6/uL Normal 4.2-5.4 [facility] Comment on above: Performed By: #### L 100.0100, L500.2500, L400.0001 ####[facility] [address] [place], [address] RDW SD 43.8 fl Normal 35.1-43.9 [facility] Comment on above: Performed By: #### L 100.0100, L500.2500, L400.0001 ####[facility] [address] [place], [address] WBC (Bld) [#/Vol] 13.4 10*3/uL High 4.4-11.0 [facility] Comment on above: Performed By: #### L 100.0100, L500.2500, L400.0001 ####[facility] [address] [place], [address] Emergency Department Summary on 04-08-2024 Emergency Department Summary [facility] Medical Records Department [address] [place] [address] Emergency Department Summary 04/08/24 MR#: [id number] Acct: [id number] Name: JULIANA MERIDA Rep #: [id number] : 1960 63 From: Rancho Orozco DO [...] retention she was sent in for evaluation. [facility] Medical History Lives in alf Hx of fracture of hip Wears glasses [...] bisacodyl 10 mg rectal suppository 10 mg WA .Q24 PRN PRN constipation 12/18/22 Unknown History [...] Unknown History (more content not included)... Normal [facility] Urinalysis, Completeon 04-08 LEUK ESTERASE Negative Normal Negative [facility] Comment on above: Order Comment: RESUL T(S) PREVIOUSLY REPORTED ON MANUAL REQUISITION DURINGDOWNTIME.CLEAN CATCH Performed By: #### L 100.0100, L500.2500, L400.0001 ####[facility] [address] [place], [place], [id number] Nitrite Ql (U) Negative Normal Negative [facility] Comment on above: Order Comment: RESUL T(S) PREVIOUSLY REPORTED ON MANUAL REQUISITION DURINGDOWNTIME.CLEAN CATCH Performed By: #### L 100.0100, L500.2500, L400.0001 ####[facility] [address] [place], [place], [address] OCCULT BLOOD-UR Negative Normal Negative [facility] Comment on above: Order Comment: RESUL T(S) PREVIOUSLY REPORTED ON MANUAL REQUISITION DURINGDOWNTIME.CLEAN CATCH Performed By: #### L 100.0100, L500.2500, L400.0001 ####[facility] [address] [place], [address] pH UR 7.0 Normal 5.0 - 8.0 [facility] Comment on above: Order Comment: RESUL T(S) PREVIOUSLY REPORTED ON MANUAL REQUISITION DURINGDOWNTIME.CLEAN CATCH Performed By: #### L 100.0100, L500.2500, L400.0001 ####[facility] [address] [place], [address] PROT DIPSTX Negative Normal Negative [facility] Comment on above: Order Comment: RESUL T(S) PREVIOUSLY REPORTED ON MANUAL REQUISITION DURINGDOWNTIME.CLEAN CATCH Performed By: #### L 100.0100, L500.2500, L400.0001 ####[facility] [address] [place], [address] SP.GR. DIPSTX 1.005 Normal 1.002-1.03 0 [facility] Comment on above: Order Comment: RESUL T(S) PREVIOUSLY REPORTED ON MANUAL REQUISITION DURINGDOWNTIME.CLEAN CATCH Performed By: #### L 100.0100, L500.2500, L400.0001 ####[facility] [address] [place], [address] UROBILI Normal Normal Normal [facility] Comment on above: Order Comment: RESUL T(S) PREVIOUSLY REPORTED ON MANUAL REQUISITION DURINGDOWNTIME.CLEAN CATCH Performed By: #### L 100.0100, L500.2500, L400.0001 ####[facility] [address] [place], [address] BILIRUBIN URINE Negative Normal Negative [facility] Comment on above: Order Comment: RESUL T(S) PREVIOUSLY REPORTED ON MANUAL REQUISITION DURINGDOWNTIME.CLEAN CATCH Performed By: #### L 100.0100, L500.2500, L400.0001 ####[facility] [address] [place], [address] Clarity (U) Clear Normal Clear [facility] Comment on above: Order Comment: RESUL T(S) PREVIOUSLY REPORTED ON MANUAL REQUISITION DURINGDOWNTIME.CLEAN CATCH Performed By: #### L 100.0100, L500.2500, L400.0001 ####[facility] [address] [place], [address] Color (U) YELLOW Normal Yellow [facility] Comment on above: Order Comment: RESUL T(S) PREVIOUSLY REPORTED ON MANUAL REQUISITION DURINGDOWNTIME.CLEAN CATCH Performed By: #### L 100.0100, L500.2500, L400.0001 ####[facility] [address] [place], [address] GLUCOSE, UR Negative Normal Normal [facility] Comment on above: Order Comment: RESUL T(S) PREVIOUSLY REPORTED ON MANUAL REQUISITION DURINGDOWNTIME.CLEAN CATCH Performed By: #### L 100.0100, L500.2500, L400.0001 ####[facility] [address] [place], [address] KETONE UR Negative Normal Negative [facility] Comment on above: Order Comment: RESUL T(S) PREVIOUSLY REPORTED ON MANUAL REQUISITION DURINGDOWNTIME.CLEAN CATCH Performed By: #### L 100.0100, L500.2500, L400.0001 ####[facility] [address] [place], [address] BACTERIA 0 SEEN Normal None Seen [facility] Comment on above: Order Comment: RESUL T(S) PREVIOUSLY REPORTED ON MANUAL REQUISITION DURINGDOWNTIME.CLEAN CATCH Performed By: #### L 100.0100, L500.2500, L400.0001 ####[facility] [address] [place], [address] EPI,SQUAMOUS 0 SEEN Normal 5-10 [facility] Comment on above: Order Comment: RESUL T(S) PREVIOUSLY REPORTED ON MANUAL REQUISITION DURINGDOWNTIME.CLEAN CATCH Performed By: #### L 100.0100, L500.2500, L400.0001 ####[facility] [address] [place], [address] Mucus Ql (Urine sed) 0 SEEN Normal [facility] Comment on above: Order Comment: RESUL T(S) PREVIOUSLY REPORTED ON MANUAL REQUISITION DURINGDOWNTIME.CLEAN CATCH Performed By: #### L 100.0100, L500.2500, L400.0001 ####[facility] [address] [place], [address] RBC 0 SEEN Normal 0-5 [facility] Comment on above: Order Comment: RESUL T(S) PREVIOUSLY REPORTED ON MANUAL REQUISITION DURINGDOWNTIME.CLEAN CATCH Performed By: #### L 100.0100, L500.2500, L400.0001 ####[facility] [address] [place], [address] WBC 0 SEEN Normal 0-5 [facility] Comment on above: Order Comment: RESUL T(S) PREVIOUSLY REPORTED ON MANUAL REQUISITION DURINGDOWNTIME.CLEAN CATCH Performed By: #### L 100.0100, L500.2500, L400.0001 ####[facility] [address] [place], [address] [facility] Telephone ([facility]) -------- JULIANA MERIDA ([id number]) 1960 F Date Time Provider Department 03/23/24 FUNMILAYO POPE [facility] During your visit today, we recorded the following information about you: Valeria Kapoor MA 03/23/2024 11:32 AM Signed Patient was a no show for her appointment today. I called the facility and left a voice mail with the phone number for a call back to get rescheduled. I also sent Renetta AND Alexsandra in [facility]'s office a bubble chat message letting [...] Itching Date Reviewed: 09/20/2023 Reviewed by: Izabela Harper RN - Fully Assessed Reason for Visit: [...] hours as needed for cough. - Ipratropium [place] (ATROVENT) 21 mcg (0.03 %) nasal spray [...] to right ankle diabetic ulcer topically every night monitor for DM ulcer - Dyclonine (SUCRETS SORE THROAT) 2 mg lozg Use as instructed. - insulin glargine,hum.rec.anlog (TOUJEO MAX U-300 SOLOSTAR SUBCUTANEOUS) Inject subcutaneously as directed. - mrpbnnbxrch-rurmpyiav-kf lanter (TRELEGY ELLIPTA) 200-62.5-25 mcg inhalation powder [...] (more content not included)... Normal [facility] CNPN Telephone ([employer]) -------- JULIANA MERIDA ([id number]) 1960 F Date Time Provider Department 03/23/24 FUNMILAYO POPE [facility] During your visit today, we recorded the [...] by: Izabela Harper, ELENA - Fully Assessed Prescriptions as of 03/23/2024 [...] hours as needed for cough. - Ipratropium [place] (ATROVENT) 21 mcg (0.03 %) nasal spray [...] to right ankle diabetic ulcer topically every night monitor for DM ulcer - Dyclonine (SUCRETS SORE THROAT) 2 mg lozg Use as instructed. - insulin glargine,hum.rec.anlog (TOUJEO MAX U-300 SOLOSTAR SUBCUTANEOUS) Inject subcutaneously as directed. - blogrnqjawk-nuhvtpuyr-ax lanter (TRELEGY ELLIPTA) 200-62.5-25 mcg inhalation powder [...] (FLONASE) 50 mcg/actuation nasal spray Use 1 [place] in each nostril once daily. . - pregabalin (LYRICA) 100 mg capsule Take 1 capsule by mouth twice daily. - magnesium oxide (MAG-OX) 400 mg tablet Take 1 tablet by mouth once daily. - multivitamin tablet Take 1 tab (more content not included)... Normal [facility] Bedside Glucoseon 03-22-2024 FINGERSTICK GLU 158 mg/dL High 74-106 [facility] Comment on above: Result Comment: PAO MARS OF PATIENT CARE PER NURSING PROTOCOL Performed By: #### L 400.0001 #### [facility] [address] [facility] [place], [address] 12 Lead EKGon 03-21-2024 12 Lead EKG [facility] Cardiovascular Services [address] [place] [address] 12 Lead EKG 03/21/241944 MR#: [id number] Acct: [id number] Name: JULIANA MERIDA YANELI Rep #: [id number] : 1960 63 From: Kurt Justice MD [...] Borderline ECG Confirmed by KURT JUSTICE MD ([id number]), graphic editor SVETA STILES ([id number]) on 03/23/2024 6:45:07 AM Referred By: AR Confirmed By:KURT JUSTICE MD 03/23/24 0645 Date Kurt Justice MD CC: Dr. Oswaldo Lo MD; Bianca Palomares MD Signed [facility] 12 Lead EKG [facility] Cardiovascular Services [address] [place] [address] 12 Lead EKG 03/21/242109 MR#: [id number] Acct: [id number] Name: JULIANA MERIDA Rep #: [id number] : 1960 63 From: Kurt Justice MD [...] Borderline ECG Confirmed by KURT JUSTICE MD ([id number]), graphic editor SVETA STILES ([id number]) on 03/23/2024 6:44:53 AM Referred By: Confirmed By:KURT JUSTICE MD 03/23/24 0644 Date Kurt Justice MD CC: Dr. Oswaldo Lo MD; Bianca Palomares MD Signed [facility] Basic Metabolic Profile (BMP )on 03-21-2024 BUN/CRE 15.2 RATIO Normal 10-20 [facility] Comment on above: Order Comment: MASHA CTOR TO SPECIFY Performed By: #### L 400.0001 #### [facility] [address] [facility] [address] CA,Total 9.7 mg/dL Normal 8.5-10.1 [facility] Comment on above: Order Comment: MASHA CTOR TO SPECIFY Performed By: #### L 400.0001 #### [facility] [address] [facility] [address] Chloride [Moles/Vol] 106 mmol/L Normal 98-107 [facility] [facility] Comment on above: Order Comment: MASHA CTOR TO SPECIFY Performed By: #### L 400.0001 #### [facility] [address] [place] [id number] CO2 [Moles/Vol] 25.0 mmol/L Normal 21.0-32.0 [facility] Comment on above: Order Comment: MASHA CTOR TO SPECIFY Performed By: #### L 400.0001 #### [facility] [address] [facility] [address] Creatinine [Mass/Vol] 0.86 mg/dL Normal 0.55-1.02 [facility] Comment on above: Order Comment: MASHA CTOR TO SPECIFY Result Comment: The validity of the calculated GFR GFRAA in patients over 70 years has not been determined. Clinical correlation is essential. Performed By: #### L 400.0001 #### [facility] [address] [place] [id number] ECRCL 74.91 ml/min Normal [facility] Comment on above: Order Comment: MASHA CTOR TO SPECIFY Performed By: #### L 400.0001 #### [facility] [address] [place] [id number] EST GFR - AA 86 mL/min Normal >60 [facility] Comment on above: Order Comment: MASHA CTOR TO SPECIFY Result Comment: Afri can Venezuelan GFR Calc Performed By: #### L 400.0001 #### [facility] [address] [place], [address] GAP 7 Normal 5-15 [facility] Comment on above: Order Comment: MASHA CTOR TO SPECIFY Performed By: #### L 400.0001 #### [facility] [address] [place], [address] GFR/1.73 sq M.predicted among non-blacks MDRD (S/P/Bld) [Vol rate/Area] 71 mL/min/{1.73_m2} Normal >60 [facility] Comment on above: Order Comment: MASHA CTOR TO SPECIFY Result Comment: Non- GFR Calc Performed By: #### L 400.0001 #### [facility] [address] [place], [address] Glucose [Mass/Vol] 227 mg/dL High 74-106 [facility] Comment on above: Order Comment: MASHA CTOR TO SPECIFY Result Comment: Gluc ose result greater than or equal to 200 mg/dL suggests DIABETES MELLITUS per A.D.A. criteria. Performed By: #### L 400.0001 #### [facility] [address] [place], [address] Potassium [Moles/Vol] 3.7 mmol/L Normal 3.5-5.1 [facility] Comment on above: Order Comment: MASHA CTOR TO SPECIFY Performed By: #### L 400.0001 #### [facility] [address] [place], [address] Sodium [Moles/Vol] 138 mmol/L Normal 136-145 [facility] Comment on above: Order Comment: MASHA CTOR TO SPECIFY Performed By: #### L 400.0001 #### [facility] [address] [place], [address] Urea nitrogen [Mass/Vol] 13 mg/dL Normal 7-18 [facility] Comment on above: Order Comment: MASHA CTOR TO SPECIFY Performed By: #### L 400.0001 #### [facility] [address] [place], [address] CBC W/Diff, Automatedon 09-0 7-2023 Absolute Lymph 3.14 X10 3/uL Normal 0.83-4.51 [facility] Comment on above: Performed By: #### L 400.0001 #### [facility] [address] [place], [address] Absolute Neut 8.1 X10 3/uL High 2.0-7.7 [facility] Comment on above: Performed By: #### L 400.0001 #### [facility] [address] [place], [address] Basophils/100 WBC (Bld) 0.6 % Normal 0-1 [facility] Comment on above: Performed By: #### L 400.0001 #### [facility] [address] [place], [address] Eosinophils/100 WBC (Bld) 0.7 % Normal 0-5 [facility] Comment on above: Performed By: #### L 400.0001 #### [facility] [address] [place], [address] Erythrocyte distribution width (RBC) [Ratio] 13.8 % Normal 11.6-14.6 [facility] Comment on above: Performed By: #### L 400.0001 #### [facility] [address] [place], [address] Hematocrit (Bld) [Volume fraction] 46.8 % Normal 37-47 [facility] Comment on above: Performed By: #### L 400.0001 #### [facility] [address] [place], [address] Hemoglobin (Bld) [Mass/Vol] 15.5 g/dL High 12.0-15.0 [facility] Comment on above: Performed By: #### L 400.0001 #### [facility] [address] [place], [address] IG% 0.700 Normal 0.0-0.9 [facility] Comment on above: Result Comment: IG% - Immature Granulocytes (promyelocytes, myelocytes and metamyelocytes) > 1% indicates that a LEFT SHIFT is Present. Performed By: #### L 400.0001 #### [facility] [address] [place], [address] Lymphocytes/100 WBC (Bld) 25.7 % Normal 19-41 [facility] Comment on above: Performed By: #### L 400.0001 #### [facility] [address] [place], [address] MCH (RBC) [Entitic mass] 29.2 pg Normal 27.0-32.0 [facility] Comment on above: Performed By: #### L 400.0001 #### [facility] [address] [place], [address] MCHC (RBC) [Mass/Vol] 33.1 g/dL Normal 32-36 [facility] Comment on above: Performed By: #### L 400.0001 #### [facility] [address] [place], [address] MCV (RBC) [Entitic vol] 88.1 fL Normal 81-99 [facility] Comment on above: Performed By: #### L 400.0001 #### [facility] [address] [place], [address] Monocytes/100 WBC (Bld) 6.4 % Normal 0-10 [facility] Comment on above: Performed By: #### L 400.0001 #### [facility] [address] [place], [address] Neutrophils/100 WBC (Bld) 65.9 % Normal 47-70 [facility] Comment on above: Performed By: #### L 400.0001 #### [facility] [address] [place], [address] Nucleated RBC (Bld) [#/Vol] 0 10*3/uL Normal 0-5 [facility] Comment on above: Performed By: #### L 400.0001 #### [facility] [address] [place], [address] Platelet mean volume (Bld) [Entitic vol] 10.7 fL Normal 6.2-12.0 [facility] Comment on above: Performed By: #### L 400.0001 #### [facility] [address] [place], [address] Platelets (Bld) [#/Vol] 218 10*3/uL Normal 150-450 [facility] Comment on above: Performed By: #### L 400.0001 #### [facility] [address] [place], [address] RBC (Bld) [#/Vol] 5.31 10*6/uL Normal 4.2-5.4 [facility] Comment on above: Performed By: #### L 400.0001 #### [facility] [address] [place], [address] RDW SD 44.6 fl High 35.1-43.9 [facility] Comment on above: Performed By: #### L 400.0001 #### [facility] [address] [place], [address] WBC (Bld) [#/Vol] 12.2 10*3/uL High 4.4-11.0 [facility] Comment on above: Performed By: #### L 400.0001 #### [facility] [address] [place], [address] Chest 1 View (Portable)on Chest 1 View (Portable) [facility] Imaging Services [address] [place] [address] Chest 1 View (Portable) MR#: [id number] Acct: [id number] Name: JULIANA MERIDA Rep #: [id number] : 1960 F 63 From: Rob salinas MD PCP: Bianca Palomares MD Status: REG ER Study: Chest 1 View (Portable) Date of Exam: 03/21/24 Exam# [id number] Ordering Dr: Oswaldo Lo MD [id number] INDICATION: chest pain EXAMINATION/TECHNIQUE: X-RAY - XR Chest 1 View COMPARISON: 12/19/2023. FINDINGS: The lungs are clear. Tortuous and calcified thoracic aorta. The heart is not enlarged. No pleural effusion or pneumothorax. No acute osseous abnormalities. RAD/Chest 1 View (Portable) IMPRESSION: No acute radiographic abnormalities. Electronically Signed: Rob Booker MD at 20:25 EDT , CC: Dr. Oswaldo Lo MD; Bianca Palomares MD Touch Up Painter Hand: Signed Normal [facility] Emergency Department Summary on 03-21-2024 Emergency Department Summary [facility] Medical Records Department [address] [place] [address] Emergency Department Summary 03/21/24 MR#: [id number] Acct: [id number] Name: JULIANA MERIDA YANELI Rep #: [id number] : 1960 63 From: Oswaldo Lo MD [...] few days. No exacerbating or alleviating factors. [facility] Medical History Lives in alf Hx of fracture of hip Wears glasses [...] bisacodyl 10 mg rectal suppository 10 mg [place] .Q24 PRN PRN constipation 12/18/22 Unknown History [...] 12/18/22 Un (more content not included)... Normal [facility] L501.4020on 03-21-2024 TROPONIN-I HS 7 pg/mL Normal 3.0-54.0 [facility] Comment on above: Result Comment: Plea se Note: New Test Units and Gender Specific Reference Ranges. For more information see Policy Stat Procedure [place] High Sensitivity Troponin (TNIH) and attachments. Performed By: #### L 400.0001 #### [facility] [address] [place], [place], [id number] L501.5425on 03-21-2024 TROPONIN-I HS 6 pg/mL Normal 3.0-54.0 [facility] Comment on above: Order Comment: COLLE CTOR TO SPECIFY Result Comment: Plea se Note: New Test Units and Gender Specific Reference Ranges. For more information see Policy Stat Procedure [place] High Sensitivity Troponin (TNIH) and attachments. Performed By: #### L 400.0001 #### [facility] [address] [place], [place], [id number] Urinalysis, Completeon 03-21 BACTERIA 1+ /hpf Normal None Seen [facility] Comment on above: Order Comment: LEROY TER SPECIMEN Performed By: #### L 400.0001 ####[facility] [address] [place], [address] EPI,SQUAMOUS 5-10 SEEN Normal 5-10 [facility] Comment on above: Order Comment: LEROY TER SPECIMEN Performed By: #### L 400.0001 ####[facility] [address] [place], [place], [id number] WBC 5-10 SEEN Normal 0-5 [facility] Comment on above: Order Comment: LEROY TER SPECIMEN Performed By: #### L 400.0001 ####[facility] [address] [place], [address] BILIRUBIN URINE Negative Normal Negative [facility] Comment on above: Order Comment: LEROY TER SPECIMEN Performed By: #### L 400.0001 ####[facility] [address] [place], [address] Clarity (U) Clear Normal Clear [facility] Comment on above: Order Comment: LEROY TER SPECIMEN Performed By: #### L 400.0001 ####[facility] [address] [place], [address] Color (U) Yellow Normal Yellow [facility] Comment on above: Order Comment: LEROY TER SPECIMEN Performed By: #### L 400.0001 ####[facility] [address] [place], [address] GLUCOSE, UR 1000 mg/dl Abnormal Normal [facility] Comment on above: Order Comment: LEROY TER SPECIMEN Performed By: #### L 400.0001 ####[facility] [address] [place], [address] KETONE UR Negative Normal Negative [facility] Comment on above: Order Comment: ELROY TER SPECIMEN Performed By: #### L 400.0001 ####[facility] [address] [place], [address] LEUK ESTERASE 25 /ul Abnormal Negative [facility] Comment on above: Order Comment: LEROY TER SPECIMEN Performed By: #### L 400.0001 ####[facility] [address] [place], [address] Nitrite Ql (U) Negative Normal Negative [facility] Comment on above: Order Comment: LEROY TER SPECIMEN Performed By: #### L 400.0001 ####[facility] [address] [place], [address] OCCULT BLOOD-UR Negative Normal Negative [facility] Comment on above: Order Comment: LEROY TER SPECIMEN Performed By: #### L 400.0001 ####[facility] [address] [place], [address] pH UR 7.0 Normal 5.0 - 8.0 [facility] Comment on above: Order Comment: LEROY TER SPECIMEN Performed By: #### L 400.0001 ####[facility] [address] [place], [address] PROT DIPSTX 15 mg/dl Abnormal Negative [facility] Comment on above: Order Comment: LEROY TER SPECIMEN Performed By: #### L 400.0001 ####[facility] [address] [place], [address] SP.GR. DIPSTX 1.010 Normal 1.002-1.03 0 [facility] Comment on above: Order Comment: LEROY TER SPECIMEN Performed By: #### L 400.0001 ####[facility] [address] [place], [address] UROBILI Normal Normal Normal [facility] Comment on above: Order Comment: LEROY TER SPECIMEN Performed By: #### L 400.0001 ####[facility] [address] [place], [address] Mucus Ql (Urine sed) 0 SEEN Normal [facility] Comment on above: Order Comment: LEROY TER SPECIMEN Performed By: #### L 400.0001 ####[facility] [address] [place], [address] RBC 0 SEEN Normal 0-5 [facility] Comment on above: Order Comment: LEROY TER SPECIMEN Performed By: #### L 400.0001 ####[facility] [address] [place], [address] Bedside Glucoseon 02-07-2024 FINGERSTICK GLU 251 mg/dL High 74-106 [facility] Comment on above: Result Comment: [place] OF PATIENT CARE PER NURSING PROTOCOL Performed By: #### L 400.0001 #### [facility] [address] [place], [address] MR/POSTOP.ANEon 02-07-2024 MR/POSTOP.ANE [facility] Medical Records Department [address] [place] [address] Anesthesia Postop Eval I 02/07/24 1026 MR#: [id number] Acct: [id number] Name: JULIANA MERIDA Rep #: [id number] : 1960 63 From: Eric Serna PCP: Bianca Palomares MD Status:REG [facility] Y Race: C Location: [place] [address] Anesthesia: Postop Eval I Current Vital Signs [...] Eric Nolasco Signature: Date CC: Signed Normal [facility] MR/[id number] 02-07-2024 MR/POSTOPAN2 [facility] Medical Records Department [address] [place] [address] Anesthesia Postop Eval II 02/07/24 1300 MR#: [id number] Acct: [id number] Name: JULIANA MERIDA Rep #: [id number] : 1960 63 From: Eric Monte MD PCP: Bianca Palomares MD Status:DEP [facility] Y Race: C Location: [facility] Anesthesia Postop Eval I Sum Postop Eval Completion status Anesthesia document: Postop Eval 1 completed: Yes Anesthesia Postop Eval I Summary Anesthesia Postop Eval I Summary: Anesthesia Postop Eval I: Assessment Summary Airway patent Yes 02/07/24 10:27 STUDENT WORKER.MDOT Spontaneous unlabored Yes 02/07/24 10:27 STUDENT WORKER.MDOT respirations Mental status Awake,Calm 02/07/24 10:27 STUDENT WORKER.MDOT nausea No 02/07/24 10:27 STUDENT WORKER.MDOT Vomiting No 02/07/24 10:27 STUDENT WORKER.MDOT Anesthesia Postop Eval I: Fluid Summary Crystalloid volume administer 800 02/07/24 10:27 STUDENT WORKER.MDOT (ml) Colloids volume administered ( ml) Blood Product volume administered (ml) Total IV fluid infused 800 02/07/24 10:27 STUDENT WORKER.OT Anesthesia Postop Eval I: Summary Notes Anesthesia Complication No 02/07/24 10:27 STUDENT WORKER.MDOT Anesthesia Complication Comment: Post-operative progress note Anesthesia: Postop Eval II Evaluation Mental status: Awake and Calm Pain Level: 1 nausea: No Vomiting: No Complications Anesthesia Complication: No 02/07/24 1300 Date Eric Monte MD Cosigner Signature: Date CC: Signed Normal [facility] Absolute lymphocyte countOrd ered By: Dino Pena on 11-24-2023 Lymphocytes Auto (Unsp spec) [#/Vol] 2.37 10*3/uL 0.83-4.51 [facility] Automated lymphocyte count a s percentage of total leukocytesOrdered By: Dino Pena on 11-24-2023 Lymphocytes/100 WBC Auto (Unsp spec) 20.5 % 19-41 [facility] Basophil percentageOrdered B y: Dino Pena on 11-24-2023 Basophil percentage 0 SEEN /hpf 0-5 [facility] Basophils/100 WBC (Bld) 0.3 % 0-1 [facility] Chloride [Moles/Vol] 104 mmol/L 98-107 [facility] Eosinophils/100 WBC (Bld) 0.6 % 0-5 [facility] Glucose [Mass/Vol] 141 mg/dL 74-106 [facility] Comment on above: Fasting Glucose resu lt greater than or equal to 126 mg/dL suggests DIABETES MELLITUS per A.D.A. criteria. Hemoglobin (Bld) [Mass/Vol] 14.4 g/dL 12.0-15.0 [facility] Monocytes/100 WBC (Bld) 8.4 % 0-10 [facility] Neutrophils (Bld) [#/Vol] 8.0 10*3/uL 2.0-7.7 [facility] Neutrophils/100 WBC (Bld) 69.2 % 47-70 [facility] Potassium [Moles/Vol] 3.9 mmol/L 3.5-5.1 [facility] Sodium [Moles/Vol] 142 mmol/L 136-145 [facility] WBC (Bld) [#/Vol] 11.6 10*3/uL 4.4-11.0 [facility] Bilirubin Test strip Ql (U)O rdered By: Dino Pena on 11-24-2023 Bilirubin Ql (U) Negative Negative [facility] Determination of erythrocyte mean corpuscular volume (MCV)Ordered By: Dino Pena on 11-24-2023 MCV (RBC) [Entitic vol] 89.4 fL 81-99 [facility] Erythrocyte distribution wid th ratioOrdered By: Dino Pena on 11-24-2023 Erythrocyte distribution width (RBC) [Ratio] 15.5 % 11.6-14.6 [facility] Erythrocyte distribution wid th standard deviationOrdered By: Dino Pena on 11-24-2023 Erythrocyte distribution width (RBC) [Entitic vol] 50.6 fL 35.1-43.9 [facility] Hematocrit Auto (Bld) [Volum e fraction]Ordered By: Dino Pena on 11-24-2023 Hematocrit (Bld) [Volume fraction] 43.8 % 37-47 [facility] Immature granulocytes/100 WB C Auto (Bld)Ordered By: Dino Pena on 11-24-2023 Immature granulocytes/100 WBC (Bld) 1.000 % 0.0-0.9 [facility] Comment on above: IG% - Immature Granu locytes (promyelocytes, myelocytes and metamyelocytes) > 1% indicates that a LEFT SHIFT is Present. Ketones Test strip Ql (U)Ord ered By: Dino Pena on 11-24-2023 Ketones Ql (U) Negative Negative [facility] - Chemistry and C hemistry - challengeOrdered By: Dino Pena on 11-24-2023 CO2 [Moles/Vol] 33.0 mmol/L 21.0-32.0 [facility] Urea nitrogen/Creatinine [Mass ratio] 17.9 mg/mg 10-20 [facility] - Hematology and Cell countsOrdered By: Dino Pena on 11-24-2023 MCH (RBC) [Entitic mass] 29.4 pg 27.0-32.0 [facility] MCHC (RBC) [Mass/Vol] 32.9 g/dL 32-36 [facility] Nucleated RBC/100 WBC (Bld) [Ratio] 0 % 0-5 [facility] Platelet mean volume (Bld) [Entitic vol] 9.9 fL 6.2-12.0 [facility] Platelets (Bld) [#/Vol] 223 10*3/uL 150-450 [facility] Mucus LM Ql (Urine sed)Order ed By: Dino Pena on 11-24-2023 Mucus Ql (Urine sed) 0 SEEN /hpf [facility] Nitrite Test strip Ql (U)Ord ered By: Dino Pena on 11-24-2023 Nitrite Ql (U) Negative Negative [facility] No Panel InformationOrdered By: Dino Pena on 11-24-2023 Urine RBC 0 SEEN /hpf 0-5 [facility] Estimated Creatinine Clearance Calc 77.96 ml/min [facility] Estimated GFR (MDRD) Amer 89 mL/min >60 [facility] Comment on above: GFR Calc Estimated GFR (MDRD) Non-Af Amer 73 mL/min >60 [facility] Comment on above: Non- GFR Calc Troponin I High Sensitivity 5 pg/mL 3.0-54.0 [facility] Comment on above: Please Note: New Ines t Units and Gender Specific Reference Ranges. For more information see Policy Stat Procedure [place] High Sensitivity Troponin (TNIH) and attachments. Protein Test strip Ql (U)Ord ered By: Dino Pena on 11-24-2023 Protein Ql (U) Negative Negative [facility] RBC Auto (Bld) [#/Vol]Ordere d By: Dino Pena on 11-24-2023 RBC (Bld) [#/Vol] 4.90 10*6/uL 4.2-5.4 [facility] Serum or plasma calcium fabi urement (mass/volume)Ordered By: Dino Pena on 11-24-2023 Calcium [Mass/Vol] 9.0 mg/dL 8.5-10.1 [facility] Serum or plasma creatinine m easurement (mass/volume)Ordered By: Dino Pena on 11-24-2023 Creatinine [Mass/Vol] 0.84 mg/dL 0.55-1.02 [facility] Comment on above: The validity of the calculated GFR & GFRAA in patients over 70 years has not been determined. Clinical correlation is essential. Serum or plasma urea nitroge n measurement (mass/volume)Ordered By: Dino Pena on 11-24-2023 Urea nitrogen [Mass/Vol] 15 mg/dL 7-18 [facility] Squamous epithelial cells de tection in urine sediment by light microscopyOrdered By: Dino Pena on 11-24-2023 Epithelial cells.squamous LM Ql (Urine sed) 0-5 SEEN /hpf 5-10 [facility] Thin prep Papanicolaou smear with manual screeningOrdered By: Dino Pena on 11-24-2023 Thin prep Papanicolaou smear with manual screening 5 5-15 [facility] Urine blood detectionOrdered By: Dino Pena on 11-24-2023 RBC Ql (U) Negative Negative [facility] Urine clarityOrdered By: Migdalia Pena on 11-24-2023 Clarity (U) Clear Clear [facility] Urine color determinationOrd ered By: Dino Pena on 11-24-2023 Color (U) Yellow Yellow [facility] Urine glucose detectionOrder ed By: Dino Pena on 11-24-2023 Glucose Ql (U) Normal mg/dl Normal [facility] Urine leukocyte esterase det ection by dipstickOrdered By: Dino Pena on 11-24-2023 Leukocyte esterase Test strip Ql (U) Negative Negative [facility] Urine pHOrdered By: Dino Pena on 11-24-2023 pH (U) 7.0 [pH] 5.0 - 8.0 [facility] Urine sediment bacteria coun t by microscopy (number/high power field)Ordered By: Dino Pena on 11-24-2023 Bacteria LM.HPF (Urine sed) [#/Area] 0 /[HPF] None Seen [facility] Urine specific gravity measu rementOrdered By: Dino Pena on 11-24-2023 Specific gravity (U) [Rel density] 1.010 1.002-1.03 0 [facility] Urine urobilinogen measureme ntOrdered By: Dino Pena on 11-24-2023 Urobilinogen Ql (U) Normal mg/dl Normal [facility] CT ABDOMEN/PELVIS W/O CONTRA STon 10-05-2023 CT [...] PM Ordering Provider: MAULIK العلي [facility] ([place]) Absolute lymphocyte countOrd ered By: Chilango Laughlin on 09-26-2023 Lymphocytes Auto (Unsp spec) [#/Vol] 2.05 10*3/uL 0.83-4.51 [facility] Anaerobic cultureOrdered By: Chilango Laughlin on 09-26-2023 Bacteria identified Anaer cx Nom (Unsp spec) No anaerobic bacteria isolated. [facility] Automated lymphocyte count a s percentage of total leukocytesOrdered By: Chilango Laughlin on 09-26-2023 Lymphocytes/100 WBC Auto (Unsp spec) 20.9 % 19-41 [facility] Bacteria identified Cx Nom ( Wound)Ordered By: Chilango Laughlin on 09-26-2023 Wound Culture Meth. resistant Stap h. aureus [facility] Basophil percentageOrdered B y: Chilango Laughlin on 09-26-2023 Basophils/100 WBC (Bld) 0.4 % 0-1 [facility] Bilirubin [Mass/Vol] 0.40 mg/dL 0.20-1.00 [facility] Comment on above: For patients on eltr ombopag therapy, use of Dimension [place] TBIL is not recommended. Chloride [Moles/Vol] 106 mmol/L 98-107 [facility] Eosinophils/100 WBC (Bld) 1.3 % 0-5 [facility] Glucose [Mass/Vol] 210 mg/dL 74-106 [facility] Comment on above: Glucose result great er than or equal to 200 mg/dLsuggests DIABETES MELLITUS per A.D.A. criteria. Hemoglobin (Bld) [Mass/Vol] 14.5 g/dL 12.0-15.0 [facility] Monocytes/100 WBC (Bld) 7.7 % 0-10 [facility] Neutrophils (Bld) [#/Vol] 6.8 10*3/uL 2.0-7.7 [facility] Neutrophils/100 WBC (Bld) 69.1 % 47-70 [facility] Potassium [Moles/Vol] 4.5 mmol/L 3.5-5.1 [facility] Comment on above: Moderate Hemolysis, Result may be falsely increased. Protein [Mass/Vol] 6.9 g/dL 6.4-8.2 [facility] Sodium [Moles/Vol] 139 mmol/L 136-145 [facility] WBC (Bld) [#/Vol] 9.8 10*3/uL 4.4-11.0 [facility] Determination of erythrocyte mean corpuscular volume (MCV)Ordered By: Chilango Laughlin on 09-26-2023 MCV (RBC) [Entitic vol] 87.5 fL 81-99 [facility] Erythrocyte distribution wid th ratioOrdered By: Chilango Laughlin on 09-26-2023 Erythrocyte distribution width (RBC) [Ratio] 13.4 % 11.6-14.6 [facility] Erythrocyte distribution wid th standard deviationOrdered By: Chilango Laughlin on 09-26-2023 Erythrocyte distribution width (RBC) [Entitic vol] 42.7 fL 35.1-43.9 [facility] Erythrocyte sedimentation ra teOrdered By: Chilango Laughlin on 09-26-2023 ESR (Bld) [Velocity] 15 mm/h 0-30 [facility] Gram stain for investigation of transfusion reactionOrdered By: Chilango Laughlin on 09-26-2023 Microscopic observation Gram stain Nom (Unsp spec) [facility] Hematocrit Auto (Bld) [Volum e fraction]Ordered By: Chilango Laughlin on 09-26-2023 Hematocrit (Bld) [Volume fraction] 44.9 % 37-47 [facility] Immature granulocytes/100 WB C Auto (Bld)Ordered By: Chilango Laughlin on 09-26-2023 Immature granulocytes/100 WBC (Bld) 0.600 % 0.0-0.9 [facility] Comment on above: IG% - Immature Granu locytes (promyelocytes, myelocytes and metamyelocytes) > 1% indicates that a LEFT SHIFT is Present. Laboratory - Chemistry and C hemistry - challengeOrdered By: Chilango Laughlin on 09-26-2023 Albumin/Globulin [Mass ratio] 1.0 {ratio} 0.9-2.4 [facility] ALP [Catalytic activity/Vol] 60 U/L 45-117 [facility] ALT [Catalytic activity/Vol] 62 U/L 13-56 [facility] CO2 [Moles/Vol] 28.0 mmol/L 21.0-32.0 [facility] Globulin (S) [Mass/Vol] 3.5 g/dL 2.2-4.2 [facility] Urea nitrogen/Creatinine [Mass ratio] 17.4 mg/mg 10-20 [facility] Laboratory - Hematology and Cell countsOrdered By: Chilango Laughlin on 09-26-2023 MCH (RBC) [Entitic mass] 28.3 pg 27.0-32.0 [facility] MCHC (RBC) [Mass/Vol] 32.3 g/dL 32-36 [facility] Nucleated RBC/100 WBC (Bld) [Ratio] 0 % 0-5 [facility] Platelet mean volume (Bld) [Entitic vol] 10.6 fL 6.2-12.0 [facility] Platelets (Bld) [#/Vol] 222 10*3/uL 150-450 [facility] No Panel InformationOrdered By: Chilango Laughlin on 09-26-2023 C-Reactive Protein Extended Range 5.51 mg/L 0.0-3.0 [facility] Comment on above: C-Reactive Protein ( CRP) provides useful information for thediagnosis, therapy and monitoring of inflammatory processesand associated diseases. For the evaluation of Relative Riskfor Cardiovascular Disease, a High Sensitivity CRP (HSCRP)should be ordered. Estimated GFR (MDRD) Amer 93 mL/min >60 [facility] Comment on above: GFR Calc Estimated GFR (MDRD) Non-Af Amer 77 mL/min >60 [facility] Comment on above: Non- GFR Calc RBC Auto (Bld) [#/Vol]Ordere d By: Chilango Laughlin on 09-26-2023 RBC (Bld) [#/Vol] 5.13 10*6/uL 4.2-5.4 [facility] Serum or plasma calcium fabi urement (mass/volume)Ordered By: Chilango Laughlin on 09-26-2023 Calcium [Mass/Vol] 9.4 mg/dL 8.5-10.1 [facility] Serum or plasma creatinine m easurement (mass/volume)Ordered By: Chilango Laughlin on 09-26-2023 Creatinine [Mass/Vol] 0.80 mg/dL 0.55-1.02 [facility] Comment on above: The validity of the calculated GFR & GFRAA in patients over 70 years has not been determined. Clinical correlation is essential. Serum or plasma urea nitroge n measurement (mass/volume)Ordered By: Chilango Laughlin on 09-26-2023 Urea nitrogen [Mass/Vol] 14 mg/dL 7-18 [facility] Thin prep Papanicolaou smear with manual screeningOrdered By: Chilango Laughlin on 09-26-2023 Thin prep Papanicolaou smear with manual screening 3.4 g/dL 3.2-5.0 [facility] Thin prep Papanicolaou smear with manual screening 42 U/L 15-37 [facility] Comment on above: Moderate Hemolysis, Result may be falsely increased. Thin prep Papanicolaou smear with manual screening 5 5-15 [facility] Anaerobic cultureOrdered By: Chilango Laughlin on 08-22-2023 Bacteria identified Anaer cx Nom (Unsp spec) No anaerobic bacteria isolated. [facility] Bacteria identified Anaer cx Nom (Unsp spec) No anaerobic bacteria isolated. [facility] Bacteria identified Cx Nom ( Wound)Ordered By: Chilango Laughlin on 08-22-2023 Wound Culture Meth. resistant Stap h. aureus [facility] Wound Culture Meth. resistant Stap h. aureus [facility] Gram stain for investigation of transfusion reactionOrdered By: Chilango Laughlin on 08-22-2023 Microscopic observation Gram stain Nom (Unsp spec) [facility] Microscopic observation Gram stain Nom (Unsp spec) [facility] Anaerobic cultureOrdered By: Chilango Laughlin on 07-18-2023 Bacteria identified Anaer cx Nom (Unsp spec) No anaerobic bacteria isolated. [facility] Bacteria identified Anaer cx Nom (Unsp spec) No anaerobic bacteria isolated. [facility] Bacteria identified Cx Nom ( Wound)Ordered By: Chilango Laughlin on 07-18-2023 Wound Culture Meth. resistant Stap h. aureus [facility] Wound Culture Meth. resistant Stap h. aureus [facility] Gram stain for investigation of transfusion reactionOrdered By: Chilango Laughlin on 07-18-2023 Microscopic observation Gram stain Nom (Unsp spec) [facility] Microscopic observation Gram stain Nom (Unsp spec) [facility] Anaerobic cultureOrdered By: Dr. Laughlin on 11-25-2022 Bacteria identified Anaer cx Nom (Unsp spec) No anaerobic bacteria isolated. [facility] Bacteria identified Cx Nom ( Wound)Ordered By: Dr. Laughlin on 11-24-2022 Wound Culture Klebsiella pneumonia e sp pneum [facility] Wound Culture Proteus mirabilis [facility] Gram stain for investigation of transfusion reactionOrdered By: Dr. Laughlin on 11-23-2022 Microscopic observation Gram stain Nom (Unsp spec) [facility] Anaerobic cultureOrdered By: Chilango Laughlin on 11-22-2022 Bacteria identified Anaer cx Nom (Unsp spec) No anaerobic bacteria isolated. [facility] Bacteria identified Cx Nom ( Wound)Ordered By: Chilango Laughlin on 11-22-2022 Wound Culture Klebsiella pneumonia e sp pneum [facility] Wound Culture Proteus mirabilis [facility] Gram stain for investigation of transfusion reactionOrdered By: Chilango Laughlin on 11-22-2022 Microscopic observation Gram stain Nom (Unsp spec) [facility] XR ANKLE AND FOOT 6 VIEWS RI Denise 10-17-2022 XR ANKLE AND FOOT 6 VIEWS [...] 10/17/2022 5:04:00 AM Ordering Provider: MAKENNA HYATT [facility]) XR KNEE THREE VIEWS RIGHTon 10-17-2022 XR [...] 10/17/2022 5:02:30 AM Ordering Provider: MAKENNA HYATT [facility]) LABORATORYOrdered By: Cici Mcnally on 04-28-2022 [...] 247 mg/dL Abnormal 74 - 99 mg/dL [facility] LABORATORYOrdered By: Savanna Allen on [...] Routine cultures are held for 5 days. [facility] LABORATORYOrdered By: Jeremy Waters on 11-30-2021 [...] No (11/30/21 8:58 PM) Invalid Interpretation Code Auto Viro/Sero SS FLUAV RNA IRISH+non-probe Ql (Nph) Not Detected *NA* (11/30/21 8:58 PM) Invalid Interpretation Code Not Detected Auto Viro/Sero SS FLUBV RNA IRISH+non-probe Ql (Nph) Not Detected *NA* (11/30/21 8:58 PM) Invalid Interpretation Code Not Detected AH Auto Viro/Sero SS HAS SYMPTOMS RELATED TO CONDITION OF INTEREST:FIND:PT:^SRAVANI ENT:ORD: No (11/30/21 8:58 PM) Invalid Interpretation Code Auto Viro/Sero SS hMPV RNA IRISH+non-probe Ql [...] ml/min/1.73sqm Invalid Interpretation Code AH ADM SS Globulin 3.0 G/dL Invalid Interpretation Code 1.5 - 3.8 G/dL AH ADM SS Glucose [Mass/Vol] 126 mg/dL Invalid [...] Invalid Interpretation Code 136 - 145 mEq/L ADM SS Troponin I.cardiac DL <= 0.01 ng/mL [Mass/Vol] ng/L Invalid Interpretation Code 0.00 - 34.00 ng/L ADM SS Urea nitrogen [Mass/Vol] 8.0 mg/dL Invalid Interpretation Code 8.0 - 22.0 mg/dL ADM SS Urea nitrogen/Creatinine [Mass ratio] 9.0 ratio Invalid Interpretation Code 10.0 - 22.0 ratio ADM SS WBC (Bld) [#/Vol] 9.50 103/mcL Invalid Interpretation Code 4.50 - 10.80 10^3/mcL Remisol SS LABORATORYOrdered By: Rola Malone on 11-30-2021 Natriuretic peptide.B prohormone N-Terminal [Mass/Vol] 23 pg/mL Invalid Interpretation Code 0 - 1800 pg/mL Auto Chem SS Comprehensive metabolic 2000 panelon 11-29-2021 Albumin [Mass/Vol] 3.6 g/dL 3.4 - 5.0 g/dL [facility] ALP [Catalytic activity/Vol] 80 U/L 46 - 116 U/L [facility] ALT With P-5'-P [Catalytic activity/Vol] 51 U/L 12 - 78 U/L [facility] Anion gap [Moles/Vol] 9 mmol/L 8 - 16 mmol/L [facility] AST With P-5'-P [Catalytic activity/Vol] 31 U/L 15 - 46 U/L [facility] Bilirubin [Mass/Vol] 0.2 mg/dL 0.2 - 1 .0 mg/dL [facility] Calcium [Mass/Vol] 8.8 mg/dL 8.5 - 10. 1 mg/dL [facility] Chloride [Moles/Vol] 102 mmol/L 98 - 10 7 mmol/L [facility] CO2 [Moles/Vol] 25 mmol/L 21 - 32 mmol/L [facility] Creatinine [Mass/Vol] 0.67 mg/dL 0.51 - 0.95 mg/dL [facility] Estimated Glomerular Filtration Rate 100 mL/min/1.73m >=60 mL/min/1.7 3m [facility] Glucose [Mass/Vol] 264 mg/dL High 70 - 99 mg/dL [facility] Potassium [Moles/Vol] 4.2 mmol/L 3.5 - 5.1 mmol/L [facility] Protein [Mass/Vol] 7.0 g/dL 6.4 - 8.2 g/dL [facility] Sodium [Moles/Vol] 136 mmol/L 136 - 145 mmol/L [facility] Urea nitrogen [Mass/Vol] 10 mg/dL 7 - 18 mg/dL [facility] BD DXA - AXIAL SKELETONon BD DXA - AXIAL SKELETON * * *Final Report* * * DATE OF EXAM: Aug 07 2021 12:03PM WR 0804 - BD DXA - AXIAL SKELETON [...] Osteoporosis Less than or equal to -2.5 Touch Up Painter Hand: AKIL Transcribe Date/Time: Aug 07 2021 12:13P Dictated by : RINA YOST MD This examination was interpreted and the report reviewed and electronically signed by: RINA YOST MD on Aug 07 2021 12:14PM EST [id number] Normal [facility] Office Visiton 01-18-2017 Documentation of current medications (procedure) Done Invalid Interpretation Code [facility] Work Phone: Protein mass conc Done [facility] Work Phone: Tobacco smoking status NHIS Never smoker [facility] Work Phone: [phone] Tobacco use [facility] Never smoker Invalid Interpretation Code [facility] Work Phone: [phone] Office Visiton 12-12-2016 Documentation of current medications (procedure) Done Invalid Interpretation Code [facility] Work Phone: [phone] Tobacco use [facility] Never smoker Invalid Interpretation Code [facility] Work Phone: [phone] Lab Report: Bedside Glucoseo n 11-27-2016 Glucose 123 mg/dL High 70-110 [facility] Work Phone: [phone] Glucose mass conc 123 mg/dL High 70-110 [facility] Work Phone: [phone] Lab Report: Hemoglobin A1con 11-22-2016 HbA1c 7.4 % High 4.2-6.3 [facility] Work Phone: [phone] Lab Report: Partial Thrombop last Timeon 11-22-2016 aPTT 30.9 s Invalid Interpretation Code 24.1-36.2 [facility] Work Phone: [phone] Lab Report: Prothrombin Time w/INRon 11-22-2016 Coagulation tissue factor induced in platelet poor plasma 12.6 s Invalid Interpretation Code 11.7-14.9 [facility] Work Phone: [phone] INR Coag RelTime (PPP) 1.0 {INR} [facility] Work Phone: [phone] INR in blood by coagulation 1.0 {INR} Invalid Interpretation Code [facility] Work Phone: [phone] Office Visiton 11-14-2016 Documentation of current medications (procedure) Done Invalid Interpretation Code [facility] Work Phone: [phone] Tobacco use [facility] Never smoker Invalid Interpretation Code [facility] Work Phone: [phone] Office Visiton 08-27-2016 Documentation of current medications (procedure) Done Invalid Interpretation Code [facility] Work Phone: [phone] Tobacco use [facility] Never smoker Invalid Interpretation Code [facility] Work Phone: [phone] Vital Signs Date Time Vital Sign Value Performing Clinician Facility 01-21-2025 09:25-0400 Body temperature 97.1 [degF] Dr. Mariah Atkinson MD Work Phone: [facility] 01-21-2025 09:25-0400 Diastolic blood pressure 61 mm[Hg] Dr. Mariah Atkinson MD Work Phone: [facility] 01-21-2025 09:25-0400 Heart rate 85 /min Dr. Mariah Atkinson MD Work Phone: [facility] 01-21-2025 09:25-0400 Respiratory rate 16 /min Dr. Mariah Atkinson MD Work Phone: [facility] 01-21-2025 09:25-0400 SaO2% (BldA) [Mass fraction] 97 % Dr. Mariah Atkinson MD Work Phone: [facility] 01-21-2025 09:25-0400 Systolic blood pressure 129 mm[Hg] Dr. Mariah Atkinson MD Work Phone: [facility] 01-21-2025 07:45-0400 Body height 161.[address] Mariah Atkinson MD Work Phone: [facility] 01-21-2025 07:45-0400 Body mass index (BMI) [Ratio] 34.9 kg/m2 Dr. Mariah Atkinson MD Work Phone: [facility] 01-21-2025 07:45-0400 Body weight 90.[address] Mariah Atkinson MD Work Phone: [facility] 09-27-2024 04:39-0400 Body temperature 98 [degF] Dr. Dino Pena MD Work Phone: [phone])232-007102 [place] [address] 09-27-2024 04:39-0400 Diastolic blood pressure 82 mm[Hg] Dr. Dino Pena MD Work Phone: 3(956)406-760902 [place] [address] 09-27-2024 04:39-0400 Heart rate 72 /min Dr. Dino Pena MD Work Phone: 7([phone])798-907902 [place] [address] 09-27-2024 04:39-0400 Respiratory rate 18 /min Dr. Dino Pena MD Work Phone: 5(278)928-878002 [place] [address] 09-27-2024 04:39-0400 SaO2% (BldA) [Mass fraction] 93 % Dr. Dino Pena MD Work Phone: [phone])976-612272 [address] [place] [address] 09-27-2024 04:39-0400 Systolic blood pressure 160 mm[Hg] Dr. Dino Pena MD Work Phone: 8(195)473-904502 [place] [address] 09-27-2024 01:36-0400 Body height 160.[address] Dino Pena MD Work Phone: 2(243)710-154672 [address] [place] [address] 09-13-2024 04:51-0500 Diastolic blood pressure 61 mm[Hg] Dr. Dino Pena MD Work Phone: 5(445)912-716802 [place] [address] 09-13-2024 04:51-0500 Heart rate 77 /min Dr. Dino Pena MD Work Phone: 8(935)603-485602 [place] [address] 09-13-2024 04:51-0500 Inhaled oxygen flow rate 2 L/min Dr. Dino Pena MD Work Phone: 0(521)830-683102 [place] [address] 09-13-2024 04:51-0500 Respiratory rate 19 /min Dr. Dino Pena MD Work Phone: 8(373)353-489202 [place] [address] 09-13-2024 04:51-0500 SaO2% (BldA) [Mass fraction] 95 % Dr. Dino Pena MD Work Phone: 1(524)520-330102 [place] [address] 09-13-2024 04:51-0500 Systolic blood pressure 111 mm[Hg] Dr. Dino Pena MD Work Phone: 2(362)084-399802 [place] [address] 09-13-2024 00:52-0500 Body temperature 98 [degF] Dr. Dino Pena MD Work Phone: [facility] 09-12-2024 22:06-0500 Body mass index (BMI) [Ratio] 38.1 kg/m2 Dr. Dino Pena MD Work Phone: [facility] 09-12-2024 22:06-0500 Body weight 97.[address] Dino Pena MD Work Phone: [facility] 07-27-2024 13:31-0500 Body temperature 97.7 [degF] [facility] 07-27-2024 13:31-0500 Diastolic blood pressure 74 mm[Hg] [facility] 07-27-2024 13:31-0500 Heart rate 70 /min [facility] 07-27-2024 13:31-0500 Respiratory rate 16 /min [facility] 07-27-2024 13:31-0500 SaO2% (BldA) [Mass fraction] 97 % [facility] 07-27-2024 13:31-0500 Systolic blood pressure 130 mm[Hg] [facility] 11-24-2023 21:43-0400 Body temperature 97.1 [degF] Dr. Chilango Laughlin Work Phone: [facility] 11-24-2023 21:43-0400 Diastolic blood pressure 73 mm[Hg] Dr. Chilango Laughlin Work Phone: [facility] 11-24-2023 21:43-0400 Heart rate 81 /min Dr. Chilango Laughlin Work Phone: [facility] 11-24-2023 21:43-0400 Respiratory rate 16 /min Dr. Chilango Laughlin Work Phone: [facility] 11-24-2023 21:43-0400 SaO2% (BldA) [Mass fraction] 95 % Dr. Chilango Laughlin Work Phone: [facility] 11-24-2023 21:43-0400 Systolic blood pressure 161 mm[Hg] Dr. Chilango Laughlin Work Phone: [facility] 11-24-2023 16:26-0400 Body height 160.[address] Chilango Laughlin Work Phone: [facility] 11-24-2023 16:26-0400 Body mass index (BMI) [Ratio] 38.7 kg/m2 Dr. Chilango Laughlin Work Phone: [facility] 11-24-2023 16:26-0400 Body weight 99.[address] Chilango Laughlin Work Phone: [facility] 11-21-2023 08:45-0400 Body temperature 96.6 [degF] Dr. Chilango Laughlin Work Phone: [facility] 11-21-2023 08:45-0400 Diastolic blood pressure 72 mm[Hg] Dr. Chilango Laughlin Work Phone: [facility] 11-21-2023 08:45-0400 Heart rate 84 /min Dr. Chilango Laughlin Work Phone: [facility] 11-21-2023 08:45-0400 Respiratory rate 15 /min Dr. Chilango Laughlin Work Phone: [facility] 11-21-2023 08:45-0400 Systolic blood pressure 146 mm[Hg] Dr. Chilango Laughlin Work Phone: [facility] 11-07-2023 09:41-0400 Body temperature 97.5 [degF] Dr. Chilango Laughlin Work Phone: [facility] 11-07-2023 09:41-0400 Diastolic blood pressure 47 mm[Hg] Dr. Chilango Laughlin Work Phone: [facility] 11-07-2023 09:41-0400 Heart rate 67 /min Dr. Chilango Laughlin Work Phone: [facility] 11-07-2023 09:41-0400 Respiratory rate 18 /min Dr. Chilango Laughlin Work Phone: [facility] 11-07-2023 09:41-0400 Systolic blood pressure 111 mm[Hg] Dr. Chilango Laughlin Work Phone: [facility] 10-10-2023 09:50-0400 Body temperature 97.4 [degF] Dr. Chilango Laughlin Work Phone: [facility] 10-10-2023 09:50-0400 Diastolic blood pressure 52 mm[Hg] Dr. Chilango Laughlin Work Phone: [facility] 10-10-2023 09:50-0400 Heart rate 80 /min Dr. Chilango Laughlin Work Phone: [facility] 10-10-2023 09:50-0400 Respiratory rate 18 /min Dr. Chilango Laughlin Work Phone: [facility] 10-10-2023 09:50-0400 Systolic blood pressure 113 mm[Hg] Dr. Chilango Laughlin Work Phone: [facility] 09-20-2023 11:29-0500 Body temperature 97.5 [degF] Chair Bath Work Phone: [facility] 09-20-2023 11:29-0500 Diastolic blood pressure 80 mm[Hg] Chair Bath Work Phone: [facility] 09-20-2023 11:29-0500 Heart rate 86 /min Chair Bath Work Phone: [facility] 09-20-2023 11:29-0500 Respiratory rate 18 /min Chair Bath Work Phone: [facility] 09-20-2023 11:29-0500 SaO2% (BldA) [Mass fraction] 96 % Chair Bath Work Phone: [facility] 09-20-2023 11:29-0500 Systolic blood pressure 129 mm[Hg] Chair Bath Work Phone: [facility] 09-05-2023 09:29-0500 Body temperature 96.3 [degF] Dr. Chilango Laughlin Work Phone: [facility] 09-05-2023 09:29-0500 Diastolic blood pressure 65 mm[Hg] Dr. Chilango Laughlin Work Phone: [facility] 09-05-2023 09:29-0500 Heart rate 77 /min Dr. Chilango Laughlin Work Phone: [facility] 09-05-2023 09:29-0500 Respiratory rate 18 /min Dr. Chilango Laughlin Work Phone: [facility] 09-05-2023 09:29-0500 Systolic blood pressure 132 mm[Hg] Dr. Chilango Laughlin Work Phone: [facility] 08-08-2023 09:02-0500 Body temperature 96.5 [degF] Dr. Chilango Laughlin Work Phone: [facility] 08-08-2023 09:02-0500 Diastolic blood pressure 60 mm[Hg] Dr. Chilango Laughlin Work Phone: [facility] 08-08-2023 09:02-0500 Heart rate 84 /min Dr. Chilango Laughlin Work Phone: [facility] 08-08-2023 09:02-0500 Respiratory rate 20 /min Dr. Chilango Laughlin Work Phone: [facility] 08-08-2023 09:02-0500 Systolic blood pressure 112 mm[Hg] Dr. Chilango Laughlin Work Phone: [facility] 07-11-2023 08:53-0500 Body temperature 96.3 [degF] Dr. Chilango Laughlin Work Phone: [facility] 07-11-2023 08:53-0500 Diastolic blood pressure 62 mm[Hg] Dr. Chilango Laughlin Work Phone: [facility] 07-11-2023 08:53-0500 Heart rate 81 /min Dr. Chilango Laughlin Work Phone: [facility] 07-11-2023 08:53-0500 Respiratory rate 18 /min Dr. Chilango Laughlin Work Phone: [facility] 07-11-2023 08:53-0500 Systolic blood pressure 114 mm[Hg] Dr. Chilango Laughlin Work Phone: [facility] 06-13-2023 09:52-0500 Body temperature 95.6 [degF] Dr. Chilango Laughlin Work Phone: [facility] 06-13-2023 09:52-0500 Diastolic blood pressure 62 mm[Hg] Dr. Chilango Laughlin Work Phone: [facility] 06-13-2023 09:52-0500 Heart rate 97 /min Dr. Chilango Laughlin Work Phone: [facility] 06-13-2023 09:52-0500 Respiratory rate 16 /min Dr. Chilango Laughlin Work Phone: [facility] 06-13-2023 09:52-0500 Systolic blood pressure 142 mm[Hg] Dr. Chilango Laughlin Work Phone: [facility] 05-02-2023 09:16-0400 Body temperature 96.5 [degF] Dr. Bianca Palomares [facility] 05-02-2023 09:16-0400 Diastolic blood pressure 66 mm[Hg] Dr. Bianca Palomares [facility] 05-02-2023 09:16-0400 Heart rate 64 /[facility] 09:16-0400 Respiratory rate 16 /[facility] 09:16-0400 Systolic blood pressure 135 mm[Hg[facility] 04-11-2023 09:55-0400 Body temperature 96 [degF] Dr. Bianca Palomares [facility] 04-11-2023 09:55-0400 Diastolic blood pressure 63 mm[Hg] [facility] 04-11-2023 09:55-0400 Heart rate 66 /[facility] 04-11-2023 09:55-0400 Respiratory rate 18 /[facility] 04-11-2023 09:55-0400 Systolic blood pressure 114 mm[Hg[facility] 03-14-2023 09:18-0400 Body temperature 96.8 [degF] [facility] 03-14-[facility]23 09:18-0400 Diastolic blood pressure 66 mm[Hg] [facility] 03-14-2023 09:18-0400 Heart rate 73 /[facility] 03-14-2023 09:18-0400 Respiratory rate 18 /min Dr. Bianca Palomares [facility] 03-14-2023 09:18-0400 Systolic blood pressure 122 mm[Hg] [facility] 03-13-2023 13:01-0400 Body temperature 97 [degF] Chair Bath Work Phone: [facility] 03-13-2023 13:01-0400 Diastolic blood pressure 67 mm[Hg] Chair Bath Work Phone: [facility] 03-13-2023 13:01-0400 Heart rate 72 /min Chair Bath Work Phone: [facility] 03-13-2023 13:01-0400 Respiratory rate 18 /min Chair Bath Work Phone: [facility] 03-13-2023 13:01-0400 Systolic blood pressure 117 mm[Hg] Chair Bath Work Phone: [facility] 02-07-2023 09:16-0400 Body temperature 97 [degF] Dr. Chilango Laughlin Work Phone: [facility] 02-07-2023 09:16-0400 Diastolic blood pressure 55 mm[Hg] Dr. Chilango Laughlin Work Phone: [facility] 02-07-2023 09:16-0400 Heart rate 72 /min Dr. Chilango Laughlin Work Phone: [facility] 02-07-2023 09:16-0400 Respiratory rate 18 /min Dr. Chilango Laughlin Work Phone: [facility] 02-07-2023 09:16-0400 Systolic blood pressure 106 mm[Hg] Dr. Chilango Laughlin Work Phone: [facility] 01-16-2023 12:52-0400 Body temperature 98.2 [degF] Dr. Chilango Laughlin Work Phone: [facility] 01-16-2023 12:52-0400 Diastolic blood pressure 70 mm[Hg] Dr. Chilango Laughlin Work Phone: [facility] 01-16-2023 12:52-0400 Heart rate 64 /min Dr. Chilango Laughlin Work Phone: [facility] 01-16-2023 12:52-0400 Respiratory rate 16 /min Dr. Chilango Laughlin Work Phone: [facility] 01-16-2023 12:52-0400 SaO2% (BldA) [Mass fraction] 96 % Dr. Chilango Laughlin Work Phone: [facility] 01-16-2023 12:52-0400 Systolic blood pressure 112 mm[Hg] Dr. Chilango Laughlin Work Phone: [facility] 01-11-2023 13:25-0400 Body temperature 97.8 [degF] Dr. Chilango Laughlin Work Phone: [facility] 01-11-2023 13:25-0400 Diastolic blood pressure 59 mm[Hg] Dr. Chilango Laughlin Work Phone: [facility] 01-11-2023 13:25-0400 Heart rate 72 /min Dr. Chilango Laughlin Work Phone: [facility] 01-11-2023 13:25-0400 Respiratory rate 18 /min Dr. Chilango Laughlin Work Phone: [facility] 01-11-2023 13:25-0400 Systolic blood pressure 120 mm[Hg] Dr. Chilango Laughlin Work Phone: [facility] 12-06-2022 09:36-0400 Body temperature 96.6 [degF] Dr. Chilango Laughlin Work Phone: [facility] 12-06-2022 09:36-0400 Diastolic blood pressure 72 mm[Hg] Dr. Chilango Laughlin Work Phone: [facility] 12-06-2022 09:36-0400 Heart rate 73 /min Dr. Chilango Laughlin Work Phone: [facility] 12-06-2022 09:36-0400 Respiratory rate 18 /min Dr. Chilango Laughlin Work Phone: [facility] 12-06-2022 09:36-0400 Systolic blood pressure 122 mm[Hg] Dr. Chilango Laughlin Work Phone: [facility] 10-17-2022 05:30-0400 Diastolic Blood Pressure Non-Invasive [address] MAKENNA HYATT MD [facility] 10-17-2022 05:30-0400 Heart rate 75 /min DR MAKENNA HYATT MD [facility] 10-17-2022 05:30-0400 Respiratory rate 18 /min DR MAKENNA HYATT MD [facility] 10-17-2022 05:30-0400 Systolic Blood Pressure Non-Invasive [address] MAKENNA HYATT MD [facility] 10-17-2022 04:05-0400 Body temperature 99.32 [degF] DR MAKENNA HYATT MD [facility] 10-17-2022 04:05-0400 Diastolic Blood Pressure Non-Invasive [address] MAKENNA HYATT MD [facility] 10-17-2022 04:05-0400 Heart rate 72 /min DR MAKENNA HYATT MD [facility] 10-17-2022 04:05-0400 Respiratory rate 18 /min DR MAKENNA HYATT MD [facility] 10-17-2022 04:05-0400 Systolic Blood Pressure Non-Invasive [address] MAKENNA HYATT MD [facility] 09-05-2022 09:41-0500 Diastolic blood pressure 73 mm[Hg] [facility] 09-05-2022 09:41-0500 Heart rate 78 /min [facility] 09-05-2022 09:41-0500 Systolic blood pressure 131 mm[Hg] [facility] 04-28-2022 17:23-0400 Body temperature 98.6 [degF] TAVIA NORRIS MD [facility] 04-28-2022 17:23-0400 Diastolic blood pressure 49 mm[Hg] TAVIA NORRIS MD [facility] 04-28-2022 17:23-0400 Heart rate 71 /min TAVIA NORRIS MD [facility] 04-28-2022 17:23-0400 Respiratory rate 18 /min TAVIA NORRIS MD [facility] 04-28-2022 17:23-0400 Systolic blood pressure 179 mm[Hg] TAVIA NORRIS MD [facility] 03-07-2022 09:32-0400 Body temperature 98.2 [degF] Bed Bath Work Phone: [facility] 03-07-2022 09:32-0400 Body weight 91.4 kg Bed Bath Work Phone: [facility] 03-07-2022 09:32-0400 Diastolic blood pressure 76 mm[Hg] Bed [facility] Work Phone: [facility] 03-07-2022 09:32-0400 Heart rate 69 /min Bed [facility] Work Phone: [facility] 03-07-2022 09:32-0400 Respiratory rate 18 /min Bed [facility] Work Phone: [facility] 03-07-2022 09:32-0400 Systolic blood pressure 125 mm[Hg] Bed [facility] Work Phone: [facility] 01-31-2022 08:52-0400 Body temperature 97.7 [degF] Berenice Barile PA-C Work Phone: [facility] 01-31-2022 08:52-0400 Diastolic blood pressure 76 mm[Hg] Berenice Barile PA-C Work Phone: [facility] 01-31-2022 08:52-0400 Heart rate 78 /min Berenice Barile PA-C Work Phone: [facility] 01-31-2022 08:52-0400 SaO2% (BldA) [Mass fraction] 92 % Berenice Barinubia PA-C Work Phone: [facility] 01-31-2022 08:52-0400 Systolic blood pressure 120 mm[Hg] Berenice Edmond PA-C Work Phone: [facility] 12-13-2021 09:33-0400 Diastolic blood pressure 58 mm[Hg] Ronaldo Villarreal MD Work Phone: [facility] 12-13-2021 09:33-0400 Heart rate 86 /min Ronaldo Villarreal MD Work Phone: [facility] 12-13-2021 09:33-0400 Respiratory rate 15 /min Ronaldo Villarreal MD Work Phone: [facility] 12-13-2021 09:33-0400 SaO2% (BldA) [Mass fraction] 98 % Ronaldo Villarreal MD Work Phone: [facility] 12-13-2021 09:33-0400 Systolic blood pressure 133 mm[Hg] Ronaldo Villarreal MD Work Phone: [facility] 12-01-2021 05:50-0400 Diastolic blood pressure 57 mm[Hg] LANA ZAPIEN DO [facility] 12-01-2021 05:50-0400 Heart rate 94 /min LANA ZAPIEN DO [facility] 12-01-2021 05:50-0400 Respiratory rate 15 /min LANA ZAPIEN DO [facility] 12-01-2021 05:50-0400 Systolic blood pressure 116 mm[Hg] LANA ZAPIEN DO [facility] 12-01-2021 02:13-0400 Body temperature 100.04 [degF] LANA ZAPIEN DO [facility] 12-01-2021 02:13-0400 Diastolic blood pressure 77 mm[Hg] LANA ZAPIEN DO [facility] 12-01-2021 02:13-0400 Heart rate 104 /min LANA ZAPIEN DO [facility] 12-01-2021 02:13-0400 Respiratory rate 18 /min LANA ZAPIEN DO [facility] 12-01-2021 02:13-0400 Systolic blood pressure 151 mm[Hg] LANA ZAPIEN DO [facility] 11-30-2021 20:11-0400 Diastolic blood pressure 56 mm[Hg] LANA ZAPIEN DO [facility] 11-30-2021 20:11-0400 Heart rate 93 /min LANA ZAPIEN DO [facility] 11-30-2021 20:11-0400 Systolic blood pressure 92 mm[Hg] LANA ZAPIEN DO [facility] 11-30-2021 18:28-0400 Body temperature 100.4 [degF] LANA ZAPIEN DO [facility] 11-30-2021 18:28-0400 Body weight 87.3 kg LANA ZAPIEN DO [facility] 11-30-2021 18:28-0400 Heart rate 114 /min LANA ZAPIEN DO [facility] 11-30-2021 18:28-0400 Respiratory rate 20 /min LANA ZAPIEN DO [facility] 11-29-2021 13:15-0400 Body temperature 97.2 [degF] Chair Bath Work Phone: [facility] 11-29-2021 13:15-0400 Diastolic blood pressure 73 mm[Hg] Chair Bath Work Phone: [facility] 11-29-2021 13:15-0400 Heart rate 82 /min Chair [facility] Work Phone: [facility] 11-29-2021 13:15-0400 Respiratory rate 20 /min Chair [facility] Work Phone: [facility] 11-29-2021 13:15-0400 Systolic blood pressure 116 mm[Hg] Chair [facility] Work Phone: [facility] 03-23-2016 14:49-0400 Weight 78.47 kg Sandra Loomis [facility] Work Phone: Encounters Encounter Date Encounter Type Care Provider Facility Start: 01-21-2025 ambulatory Fer Simmons Facility :[facility] Start: 01-21-2025 Non-patient / Non-visit Fer Ambrose nd DO -[facility] Start: 01-21-2025 End: 01-21-2025 Admission to same day surgery center Fer Simmons DO -Endoscopy Work Phone: Start: 01-21-2025 End: 01-21-[address] Mariah Atkinson MD Work Phone: -Endoscopy Start: 01-20-2025 End: 01-20-2025 Telephone encounter Funmilayo Pope MD Work Phone: [facility] Start: 11-20-2024 End: 11-20-2024 Patient encounter procedure Gianna FARRIS -[facility] Work Phone: Start: 11-20-2024 End: 11-20-2024 ambulatory Gianna Nelson Facility:[facility] Start: 10-01-2024 End: 10-01-2024 ambulatory MAULIK العلي DO Facility:A Start: 10-01-2024 End: 10-01-2024 Patient encounter procedure MAULIK العلي DO [facility] Start: 09-27-2024 End: 09-27-2024 Emergency department patient visit Dr. Dino Pena MD Work Phone: -Emergency Department Work Phone: Start: 09-12-2024 End: 09-13-2024 Emergency department patient visit Dr. 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 (Primary Dx) Start: 07-27-2024 End: 07-27-2024 ambulatory Chair 3 [facility] Start: 07-16-2024 End: 07-16-2024 Telephone encounter Funmilayo Pope MD Work Phone: [facility] Arthritis & Rheumatology Comment on above: Medication Preauthor ization ([employer] Approved [id number] [facility] Medicare/Portal 07.15.24-07.15.25 2 visits) Start: 06-04-2024 End: 06-04-2024 ambulatory PHY WO ID REFERRING Facility:A Start: 06-04-2024 End: 06-04-2024 Patient encounter procedure PHY WO ID REFERRING [facility] Start: 04-08-2024 End: 04-08-2024 Emergency department patient visit Rancho Orozco Facility:[facility] Start: 03-25-2024 ambulatory Bianca De La Torrea Facility:[facility] Start: 03-23-2024 End: 03-23-2024 Telephone encounter Funmilayo Pope MD Work Phone: [facility] [place] Comment on above: Appointment Start: 03-21-2024 End: 03-22-2024 Emergency department patient visit Oswaldo Lo Facility:[facility] Start: 02-20-2024 End: 03-14-2024 ambulatory [facility] Facility:[facility] Start: 02-12-2024 ambulatory Beata Liao Facility:[facility] Start: 02-07-2024 End: 02-07-2024 ambulatory Lauren Ruelas Facility:[facility] Start: 02-06-2024 End: 02-12-2024 ambulatory [facility] Facility:[facility] Start: 11-24-2023 End: 11-24-2023 Emergency department patient visit Dr. Chilango Laughlin Work Phone: [facility]-Emergency [facility] Work Phone: Start: 11-21-[address] Brenda Laughlin Work Phone: [facility] Work Phone: Start: 11-07-2023 End: 11-12-[address] Chilango Laughlin Work Phone: [facility] Work Phone: Start: 11-07-2023 End: 11-12-[address] Chilango Laughlin Work Phone: [facility] Work Phone: Start: 10-11-2023 End: 10-11-[address] Chilango Laughlin Work Phone: [facility] Work Phone: Start: 10-11-2023 End: 10-11-[address] Chilango Laughlin Work Phone: [facility] Work Phone: Start: 10-10-2023 End: 10-13-[address] Chilango Laughlin Work Phone: [facility] Work Phone: Start: 10-10-2023 End: 10-13-[address] Chilango Laughlin [facility] Work Phone: Start: 10-04-2023 End: 10-05-2023 ambulatory MAULIK LOBO-DELMISNOMAN Facility:B Start: 10-04-2023 End: 10-04-2023 Patient encounter procedure MAULIK Martin LAURANOMAN DO [facility] Start: 09-26-2023 Non-patient / Non-visit Dr. Anais Laughlin Work Phone: [facility] Work Phone: Start: 09-23-2023 End: 09-24-2023 ambulatory MALUIK LAURANOMAN Facility:A Start: 09-20-2023 End: 09-20-2023 ambulatory Chair 3 [facility] Work Phone: Hematology/Oncology Comment on above: Other osteoporosis w ithout current pathological fracture (Primary Dx) Start: 09-19-2023 Non-patient / Non-visit Dr. Anais Laughlin Work Phone: [facility] Work Phone: Start: 09-10-2023 Telephone encounter Funmilayo colunga MD Work Phone: [facility] Rheumatology and Arthritis Comment on above: Results Start: 09-05-2023 Non-patient / Non-visit Dr. Anais Laughlin Work Phone: [facility] Work Phone: Start: 09-05-2023 End: 09-12-[address] Chilango Laughlin Work Phone: [facility] Work Phone: Start: 09-05-2023 End: 09-12-[address] Chilango Laughlin Work Phone: [facility] Work Phone: Start: 08-29-2023 Non-patient / Non-visit Dr. Anais Laughlin Work Phone: [facility] Work Phone: Start: 08-22-2023 Non-patient / Non-visit Dr. Anais Laughlin Work Phone: [facility] Work Phone: Start: 08-15-2023 Non-patient / Non-visit Dr. Anais Laughlin Work Phone: [facility] Work Phone: Start: 08-08-2023 Non-patient / Non-visit Dr. Anais Laughlin Work Phone: [facility] Work Phone: Start: 08-08-2023 End: 08-14-[address] Chilango Laughlin Work Phone: [facility] Work Phone: Start: 08-08-2023 End: 08-14-[address] Chilango Laughlin Work Phone: [facility] Work Phone: Start: 08-01-2023 Non-patient / Non-visit Dr. Anais Laughlin Work Phone: [facility] Work Phone: Start: 07-25-2023 Non-patient / Non-visit Dr. Anais Laughlin Work Phone: [facility] Work Phone: Start: 07-11-2023 Non-patient / Non-visit Dr. Anais Laughlin Work Phone: [facility] Work Phone: Start: 07-11-2023 End: 07-14-[address] Chilango Laughlin Work Phone: [facility] Work Phone: Start: 07-11-2023 End: 07-14-[address] Chilango Laughlin Work Phone: [facility] Work Phone: Start: 06-13-2023 Non-patient / Non-visit Dr. Anais Laughlin Work Phone: [facility] Work Phone: Start: 06-13-2023 End: 06-13-[address] Chilango Laughlin Work Phone: [facility] Work Phone: Start: 06-13-2023 End: 06-13-[address] Chilango Laughlin Work Phone: [facility] Work Phone: Start: 05-30-2023 Non-patient / Non-visit Dr. Anais Laughlin Work Phone: [facility] Work Phone: Start: 05-23-2023 Non-patient / Non-visit Dr. Anais Laughlin Work Phone: [facility] Work Phone: Start: 05-16-2023 Non-patient / Non-visit Dr. Anais Laughlin Work Phone: [facility] Work Phone: Start: 05-02-2023 Non-patient / Non-visit Dr. Bianca sigala [facility] Work Phone: Start: 05-02-2023 End: 05-14-[address] Valenzuela [facility] Work Phone: Start: 05-02-2023 End: 05-14-[address] Bianca Palomares [facility] Work Phone: Start: 04-25-2023 Non-patient / Non-visit Dr. Bianca Carey [facility] Work Phone: Start: 04-18-2023 Non-patient / Non-visit Dr. Bianca Carey [facility] Work Phone: Start: 04-11-2023 Non-patient / Non-visit Dr. Bianca Carey [facility] Work Phone: Start: 04-11-2023 End: 04-13-[address] [facility] Start: 04-05-2023 End: 04-05-[address] Bianca Palomares [facility]opa[facility] Work Phone: Start: 04-04-2023 Non-patient / Non-visit Dr. Bianca Carey [facility] Work Phone: Start: 03-28-2023 Non-patient / Non-visit Dr. Bianca Carey [facility] Work Phone: Start: 03-26-2023 Telephone encounter Funmilayo colunga MD Work Phone: [facility] Arthritis & Rheumatology Comment on above: APPROVED (Luc[facility] ([facility]) APPROVED [id number] 03.26.23 - 03.26.24 for 2 visits [facility] Medicare/Portal) Start: 03-21-2023 Non-patient / Non-visit Dr. Bianca Carey [facility] Work Phone: Start: 03-14-2023 Non-patient / Non-visit Dr. Bianca Carey issa [facility] Work Phone: Start: 03-14-2023 End: 03-14-[address] Bianca Palomares [facility] Work Phone: Start: 03-13-2023 Telephone encounter Self Hem atology/Oncology Start: 03-13-2023 End: 03-13-2023 ambulatory Chair 7 [facility] Work Phone: Hematology/Oncology Comment on above: Osteoporosis, unspec ified osteoporosis type, unspecified pathological fracture presence (Primary Dx) Start: 03-07-2023 Non-patient / Non-visit Dr. Bianca Carey issa [facility] Work Phone: Start: 03-06-2023 Telephone encounter Funmilayo colunga MD Work Phone: [facility] General Rheumatology and Arthritis Comment on above: Orders Start: 03-01-2023 End: 03-01-[address] Bianca Palomares [facility] Work Phone: Start: 02-21-2023 Non-patient / Non-visit Dr. Bianca Carey issa [facility] Work Phone: Start: 02-08-2023 End: 02-08-[address] Chilango Laughlin Work Phone: [facility] Work Phone: Start: 02-07-2023 Non-patient / Non-visit Dr. Anais Laughlin Work Phone: [facility] Work Phone: Start: 02-07-2023 End: 02-11-[address] Chilango Laughlin Work Phone: [facility] Work Phone: Start: 02-07-2023 End: 02-11-[address] Chilango Laughlin Work Phone: [facility] Work Phone: Start: 01-31-2023 Non-patient / Non-visit Dr. Anais Laughlin Work Phone: [facility] Work Phone: Start: 01-24-2023 Non-patient / Non-visit Dr. Anais Laughlin Work Phone: [facility] Work Phone: Start: 01-18-2023 End: 01-18-[address] Chilango Laughlin Work Phone: [facility] Work Phone: Start: 01-17-2023 Non-patient / Non-visit Dr. Anais Laughlin Work Phone: [facility] Work Phone: Start: 01-16-2023 End: 01-16-[address] Chilango Laughlin Work Phone: [facility] Vascular Surgery Work Phone: Start: 01-11-2023 Non-patient / Non-visit Dr. Anais Laughlin Work Phone: [facility] Start: 01-11-2023 End: 01-11-[address] Chilango Laughlin Work Phone: [facility] Work Phone: Start: 01-11-2023 End: 01-11-[address] Chilango Laughlin Work Phone: [facility] Work Phone: Start: 01-03-2023 Non-patient / Non-visit Dr. Anais Laughlin Work Phone: [facility] Work Phone: Start: 01-02-2023 End: 01-02-[address] Chilango Laughlin Work Phone: [facility] Work Phone: Start: 12-20-2022 Non-patient / Non-visit Dr. Anais Laughlin Work Phone: [facility] Work Phone: Start: 12-18-2022 End: 12-18-[address] Chilango Laughlin Work Phone: [facility] Work Phone: Start: 12-13-2022 Non-patient / Non-visit Dr. Anais Laughlin Work Phone: [facility] Work Phone: Start: 12-06-2022 Non-patient / Non-visit Dr. Anais Laughlin Work Phone: [facility] Start: 12-06-2022 End: 12-12-[address] Chilango Laughlin Work Phone: [facility] Work Phone: Start: 12-06-2022 End: 12-12-[address] Chilango Laughlin [facility] [place] Start: 11-29-2022 Non-patient / Non-visit Dr. Anais Laughlin Work Phone: [facility] Start: 11-22-2022 Non-patient / Non-visit Dr. Anais Laughlin Work Phone: [facility] Start: 10-17-2022 End: 10-17-2022 Emergency department patient visit DR MAKENNA HYATT MD Facility:B Start: 10-17-2022 End: 10-17-2022 Emergency department patient visit DR MAKENNA HYATT MD [facility] Start: 09-13-2022 End: 09-13-2022 Patient encounter procedure Funmilayo Pope MD Work Phone: [facility] Rheumatology and Arthritis Comment on above: Low back pain, unspe cified back pain laterality, unspecified chronicity, unspecified whether sciatica present (Primary Dx); Pain in both lower extremities; Osteoporosis, unspecified osteoporosis type, unspecified pathological fracture presence Start: 09-05-2022 End: 09-05-2022 ambulatory Chair 1 [facility] Hematology/Oncology Comment on above: Other osteoporosis w ithout current pathological fracture (Primary Dx) Start: 05-04-2022 End: 05-04-2022 Patient encounter procedure NATALIEY WO ID REFERRING [facility] Start: 04-28-2022 End: 04-28-2022 Emergency department patient visit TAVIA NORRIS MD [facility] Start: 03-07-2022 End: 03-07-2022 ambulatory Bed 1 [facility] Work Phone: Hematology/Oncology Comment on above: [...] Start: 01-08-2022 End: 01-08-2022 Patient encounter procedure [facility], [facility] Start: 12-13-2021 End: 12-13-2021 ambulatory Ronaldo Villarreal MD Work Phone: [facility] Comment on above: Procedure Start: 12-13-2021 End: 12-13-2021 Patient encounter procedure Ronaldo Villarreal MD Work Phone: [facility] Start: 11-30-2021 End: 12-01-2021 Emergency department patient visit LANA ZAPIEN DO [facility] Start: 11-29-2021 End: 11-29-2021 ambulatory Chair 6 [facility] Work Phone: Hematology/Oncology Comment on above: Other osteoporosis w ithout current pathological fracture (Primary Dx) Start: 11-21-2021 End: 11-21-2021 ambulatory Luis Pagan DO Work Phone: [facility] Start: 11-21-2021 End: 11-21-2021 Patient encounter procedure Luis Pagan DO Work Phone: [facility] Start: 11-09-2021 Telephone encounter Ronaldo Villarreal MD [facility] Comment on above: Patient Update (NEW PHONE NUMBER) Start: 10-17-2021 Telephone encounter Funmilayo colunga MD Work Phone: [facility] Rheumatology and Arthritis Comment on above: Medication Follow-up Start: 01-01-2017 Ambulatory [facility] Procedures Date Procedure Procedure Detail Performing Clinician Start: 01-21-[address] Mariah Atkinson MD Work Phone: Start: 09-27-2024 Urnls dip stick/tablet reagent auto microscopy Dr. Mariah Atkinson MD Work Phone: Start: 09-27-2024 CT of abdomen and pelvis without contrast Dr. Dino Pena MD Work Phone: Start: 09-12-2024 CT of abdomen and pelvis without contrast Dr. Dino Pena MD Work Phone: Start: 11-24-2023 Plain chest X-ray Dr. Chilango Laughlin Work Phone: Start: 11-24-2023 CT of abdomen and pelvis without contrast Dr. Chilango Laughlin Work Phone: Start: 10-11-2023 MRI of joint of lower extremity Dr. Solomon Laughlin Work Phone: Start: 09-26-[address] Silviano Laughlin Work Phone: Start: 09-26-2023 Investigation of transfusion reaction Dr. Chilango Laughlin Work Phone: Start: 09-26-2023 Microbial culture, routine Dr. Chilango Laughlin Work Phone: Start: 09-26-[address] Chilango Laughlin Work Phone: Start: 09-26-2023 X-ray of both feet Dr. Chilango Laughlin Work Phone: Start: 08-22-[address] Silviano Laughlin Work Phone: Start: 08-22-2023 Investigation of transfusion reaction Dr. Chilango Laughlin Work Phone: Start: 08-22-2023 Microbial culture, routine Dr. Chilango Laughlin Work Phone: Start: 07-18-[address] Silviano Laughlin Work Phone: Start: 07-18-2023 Investigation of transfusion reaction Dr. Chilango Laughlin Work Phone: Start: 07-18-2023 Microbial culture, routine Dr. Chilango Laughlin Work Phone: Start: 03-01-[address] Bianca Palomares Start: 02-08-[address] Chilango Laughlin Work Phone: Start: 01-18-[address] Chilango Laughlin Work Phone: Start: 01-02-[address] Chilango Laughlin Work Phone: Start: 12-18-[address] Chilango Laughlin Work Phone: Start: 11-22-[address] Silviano Laughlin Work Phone: Start: 11-22-2022 Investigation of transfusion reaction Dr. Chilango Laughlin Work Phone: Start: 11-22-2022 Microbial culture, routine Dr. Chilango Laughlin Work Phone: Start: 01-08-2022 X-ray of cervical spine Start: 01-08-2022 X-ray of lumbar spine, two or three views Start: 12-13-2021 Gluc bld gluc mntr dev cleared fda spec home use Ronaldo Villarreal MD Work Phone: Start: 11-29-2021 Comprehensive metabolic panel Funmilayo colunga MD Work Phone: Start: 05-11-2021 Adult depression screening assessment Funmilayo Pope MD Work Phone: Start: 09-05-2016 End: 09-05-2017 Physical Therapy General [facility] Work Phone: Start: 08-01-2016 End: 08-01-2017 Physical Therapy General Karthikeyan Hall Work Phone: Start: 07-27-2016 End: 11-23-2016 Ct upper extremity w/o dye Karthikeyan stevenson Work Phone: Start: 06-22-2016 End: 06-28-2016 Drain/inject, joint/bursa Karthikeyan Hall Work Phone: Start: 05-16-2016 End: 05-16-2017 Physical Therapy General Karthikeyan [facility] Work Phone: Start: 05-03-2016 End: 11-23-2016 X-ray exam of collar bone Karthikeyan Hall Work Phone: Start: 03-23-2016 End: 11-23-2016 X-ray exam of collar bone Karthikeyan Hall Work Phone: Start: 04-21-2013 Mammography Funmilayo Pope MD Work Phone: Start: 12-23-2007 Colonoscopy Funmilayo Pope MD Work Phone: Anaerobic microbial culture Dr. Chilango Laughlin Work Phone: Investigation of tra nsfusion reaction Dr. Chilango Laughlin Work Phone: Microbial culture, routine D r. Chilango Laughlin Work Phone: None (qualifier value) TAVIA NORRIS MD Plan of Treatment Date Care Activity Detail Author Start: 03-15-2025 Influenza vaccination Influenza Vacc ine (#1) [facility] Start: 01-25-2025 End: 01-25-2025 Patient encounter procedure [facility] Comment on above: //// selwynia *prolia Start: 01-21-[facility]25 [facility] Start: 09-27-2024 [facility] Start: 09-13-2024 [facility] Start: 07-27-2024 End: 07-27-2024 Patient encounter procedure 07/27/2024 1:30 PM [facility] Infusion Center [facility] [address] [place] [address] * prolia [facility] Comment on above: * prolia Start: 07-15-2024 Medicare Advantage Annual Wellness Visit Medicare Advantage Annual Wellness Visit [facility] Start: 03-15-2024 Covid-19 Vaccine () Covid-19 Vaccine () [facility] Start: 03-15-2024 Covid-19 Vaccine ( season) Covid-19 Vaccine () [facility] Start: 03-15-2024 Influenza vaccination Influenza Vacc ine (#1) [facility] Start: 11-24-2023 [facility] Start: 11-24-2023 [facility] Start: 11-24-2023 Brain natriuretic peptide measurement [facility] Start: 07-15-2023 Depression Assessment Depression Ass [facility] Start: 03-15-2023 Covid-19 Vaccine () Covid-19 Vaccine () [facility] Start: 03-15-2023 Influenza vaccination [facility] Start: 01-31-2023 BP CONTROLLED (<130/80) BP CONTROLLE D (<130/80) [facility] Start: 07-15-2022 DEPRESSION ASSESSMENT DEPRESSION ASS ESSMENT [facility] Start: 05-31-2022 BP CONTROLLED (<130/80) BP CONTROLLE D (<130/80) [facility] Start: 05-11-2022 Adult depression screening assessment DEPRESSION SCREENING [facility] Start: 03-15-2022 Influenza vaccination [facility] Start: 02-28-2022 Hepatitis B screening URINE ALBUMIN:CREATININE RATIO [facility] Start: 01-31-2022 End: 04-02-2022 25-hydroxyvitamin D3 [Mass/volume] in Serum or Plasma VITAMIN D 25 HYDROXY Lab Routine Vitamin D deficiency Expected: 01/31/2022, Expires: 04/02/2022 [facility] Work Phone: Comment on above: Expected: 01/31/2022 , Expires: 04/02/2022 Start: 2021 RSV Vaccine (1 - 1-d ose 60+ series) RSV Vaccine (1 - 1-dose 60+ series) [facility] Start: 2021 RSV Vaccine (1 - Ris k 60-74 years 1-dose series) RSV Vaccine (1 - Risk 60-74 years 1-dose series) [facility] Start: 01-14-2021 COVID-19 VACCINE (3 - Booster for Pfizer series) COVID-19 VACCINE (3 - Booster for Pfizer series) [facility] Start: 10-12-2020 COVID-19 VACCINE (3 - Booster for Pfizer series) COVID-19 VACCINE (3 - Booster for Pfizer series) [facility] Start: 10-12-2020 COVID-19 VACCINE (3 - Pfizer series) COVID-19 VACCINE (3 - Pfizer series) [facility] Start: 12-22-2017 Colonoscopy COLONOSCOPY [facility] Start: 12-22-2017 COLORECTAL CANCER SCREENING COLORECTAL CANCER SCREENING [facility] Start: 12-22-2017 Screening for malign ant neoplasm of colon [facility] Start: 02-28-2017 End: 02-28-2017 Appointment Appointment [facility] Work Phone: Start: 01-18-2017 End: 01-18-2017 Appointment Appointment [facility] Work Phone: Start: 12-19-2016 End: 12-19-2016 Physical Therapy General Physical Therapy [facility], [address] [place] [address], [address] [facility] Work Phone: Start: 12-12-2016 End: 12-12-2016 Appointment Appointment [facility] Work Phone: Start: 11-27-2016 End: 11-27-2016 Appointment Appointment [facility] Work Phone: Start: 11-14-2016 End: 11-14-2016 Appointment Appointment [facility] Work Phone: Start: 09-05-2016 End: 09-05-2016 Physical Therapy General Physical Therapy [facility], [address] [place] [address], [address] [facility] Work Phone: Start: 08-01-2016 End: 08-01-2016 Physical Therapy General Physical Therapy [facility], [address] [place] [address], [address] [facility] Work Phone: Start: 07-27-2016 End: 11-23-2016 Ct upper extremity w/o dye CT Upper Extremity [facility] Work Phone: Start: 05-16-2016 End: 06-27-2016 Physical Therapy General Physical Therapy [facility], [address] [place] [address], [address] [facility] Work Phone: Start: 05-03-2016 End: 11-23-2016 X-ray exam of collar bone X-Ray, Clavicle [facility] Work Phone: Start: 03-23-2016 End: 11-23-2016 X-ray exam of collar bone X-Ray, Clavicle [facility] Work Phone: Start: 08-12-2015 Hepatitis B surface antibody level LDL CHOLESTEROL [facility] Start: 07-03-2015 Glaucoma screening Dilated Retinal E xam [facility] Start: 07-03-2015 Hepatitis C antibody , confirmatory test DILATED RETINAL EXAM [facility] Start: 11-16-2014 3 comp foot exam completed DIABETIC FOOT EXAM [facility] Start: 11-16-2014 Diabetic foot examination Diabetic Foot Exam [facility] Start: 11-10-2014 Hemoglobin A1c measurement HbA1C [facility] Start: 11-10-2014 Hemoglobin A1c/Hemoglobin.total in Blood HBA1C [facility] Start: 11-09-2014 Hepatitis B screening Urine Albumin:Creatinine Ratio [facility] Start: 04-21-2014 Mammography [facility] Start: 04-21-2014 Screening for malign ant neoplasm of breast Mammogram Screening [facility] Start: 10-07-2011 SHINGRIX VACCINE (1 of 2) SHINGRIX VACCINE (1 of 2) [facility] Start: 04-21-2008 PNEUMOCOCCAL (2 - PCV) PNEUMOCOCCAL (2 - PCV) [facility] Start: 04-21-2008 Pneumococcal vaccination [facility] Start: 04-21-2008 Pneumococcal Vaccine : 50+ (2 of 2 - PCV) Pneumococcal Vaccine: 50+ (2 of 2 - PCV) [facility] Start: 2006 COLOGUARD (FIT-DNA) COLOGUARD (FIT-D NA) [facility] Start: [address] COLONOGRAPHY [facility] Start: 2006 FECAL OCCULT BLOOD FECAL OCCULT BLOO D [facility] Start: 2006 Screening for malign ant neoplasm of colon [facility] Start: 2006 SIGMOIDOSCOPY SIGMOIDOSCOPY [facility] Start: 12-14-2004 Urine microalbumin profile [facility] Start: 10-07-1979 ANNUAL PCP TEAM VISUAL JOURNALIST JIM DISEASE VISIT ANNUAL PCP TEAM CHRONIC DISEASE VISIT [facility] Start: 10-07-1979 Anxiety Screening Anxiety Screening [facility] Start: 10-07-1979 BP CONTROLLED (<130/80) BP CONTROLLE D (<130/80) [facility] Start: 10-07-1979 Depression Screening Depression Scre ening [facility] Start: 10-07-1979 HIV SCREENING HIV SCREENING [facility] Start: 10-07-1979 HIV screening HIV Screening [facility] End: 09-13-2023 25-hydroxyvitamin D3 [Mass/volume] in Serum or Plasma VITAMIN D 25 HYDROXY Lab Routine Osteoporosis, unspecified osteoporosis type, unspecified pathological fracture presence 2 Occurrences starting 09/13/2022 until 09/13/2023 [facility] Work Phone: Comment on above: 2 Occurrences starti ng 09/13/2022 until 09/13/2023 End: 09-13-2023 Comprehensive metabolic 2000 panel - Serum or Plasma COMP METABOLIC PANEL Lab Routine Osteoporosis, unspecified osteoporosis type, unspecified pathological fracture presence 2 Occurrences starting 09/13/2022 until 09/13/2023 [facility] Work Phone: Comment on above: 2 Occurrences starti ng 09/13/2022 until 09/13/2023 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/musical instrument maker trigger point 3/> muscles TRIGGER POINT INJECTION MULTI 3+ MUSCLE GRP Procedures Routine Myofascial pain Ordered: 12/13/2021 [facility] Work Phone: Comment on above: Ordered: 12/13/2021 End: 09-13-2023 Parathyrin.intact [Mass/volume] in Serum or Plasma PTH INTACT BLD Lab Routine Osteoporosis, unspecified osteoporosis type, unspecified pathological fracture presence 2 Occurrences starting 09/13/2022 until 09/13/2023 [facility] Work Phone: Comment on above: 2 Occurrences starti ng 09/13/2022 until 09/13/2023 Patient Education [facility] Work Phone: Patient referral [facility] Work Phone: [facility] Immunizations Immunization Date Immunization Notes Care Provider Fa cili 03-12-2017 influenza virus vacc ine, unspecified formulation Funmilayo Pope MD Work Phone: [facility] 04-22-2014 influenza, seasonal, injectable Funmilayo Pope MD Work Phone: [facility] 04-13-2013 influenza virus vacc ine, unspecified formulation Funmilayo Pope MD Work Phone: [facility] Work Phone: 05-13-2012 influenza virus vacc ine, unspecified formulation Funmilayo Pope MD Work Phone: [facility] 05-09-2010 influenza virus vacc ine, unspecified formulation Funmilayo Pope MD Work Phone: [facility] Work Phone: 05-15-2007 influenza virus vacc ine, unspecified formulation Funmilayo Pope MD Work Phone: [facility] Work Phone: 04-21-2007 pneumococcal polysaccharide vaccine, 23 valent Funmilayo Pope MD Work Phone: [facility] Work Phone: 05-10-2006 influenza virus vacc ine, unspecified formulation Funmilayo Pope MD Work Phone: [facility] Work Phone: 12-13-2004 tetanus and diphther ia toxoids, adsorbed, preservative free, for adult use (2 Lf of tetanus toxoid and 2 Lf of diphtheria toxoid) Funmilayo Pope MD Work Phone: [facility] Work Phone: Payers Date Payer Category Payer Unknown [id number] 2024 Self-pay [id number] 2023 Unknown [id number] 2022 Medicare (Managed Care) [employer] PPO [id number] 2022 Unknown [id number] 2015 Medicaid [employer] [facility] [id number] 2015-Present [phone] [address] [place] [address] Medicaid [id number] 2015 Medicaid [id number] 2015 Unknown [id number] 2003 Medicare MEDICARE MEDICAR E A AND B [id number] 2003-Present [phone] [address] [address] [place] [address] Medicare [id number] 2003 Medicare [id number] 1961 Unknown [id number] 2.16.840.1.640070.3.579.2. 627 1961 Unknown [id number] 2.16.840.1.938801.3.579.2. 627 1961 Unknown [id number] 2.16.840.1.942131.3.579.2. 627 1961 Unknown [id number] 2.16.840.1.164675.3.579.2. 627 1961 Unknown [id number] 2.16.840.1.760180.3.579.2. 627 Medicare [id number] Unknown [id number] 2.16.840.1.599552.3.579.2. 462 Unknown [id number] 2.16.840.1.939972.3.579.2. 462 Unknown [id number] 2.16.840.1.119674.3.579.2. 462 Unknown [id number] 2.16.840.1.362567.3.579.2. 462 Unknown [id number] 2.16.840.1.939645.3.579.2. 462 Unknown [id number] 2.16.840.1.800034.3.579.2. 462 Unknown [id number] 2.16.840.1.812364.3.579.2. 462 Unknown [id number] 2.16.840.1.163953.3.579.2. 462 Unknown [id number] 2.840.1.939343.3.579.2. 462 Unknown [id number] 2.0.1.817210.3.579.2. 462 Unknown [id number] 2.0.1.578566.3.579.2. 462 Unknown [id number] 2.0.1.746100.3.579.2. 462 Social History Date Type Detail Facility Start: 09-12-1994 End: 09-27-2024 Tobacco smoking status NHIS Smokes tobacco daily [facility] Start: 09-12-1994 End: 09-12-2013 History of tobacco use Cigarette Smoker [facility] Start: 02-28-2021 End: 03-13-2023 Cigarettes smoked current (pack per day) - Reported 0.5 [facility] Start: 02-28-2021 Tobacco use and exposure Smokeless tobacco non-user [facility] Start: 09-13-2021 End: 02-28-2022 Alcohol intake Current non-drinker of alcohol (finding) [facility] Start: 02-28-2021 Tobacco Comment ten cig daily currently, off and on for 19 yrs [facility] Start: 1960 Sex Assigned At Not on file [facility] Start: 11-11-2021 End: 03-07-2022 Exposure to SARS-CoV-2 (event) Not sure [facility] Start: 01-17-2019 Tobacco smoking status Heavy t obacco smoker (finding) [facility] Start: 1960 Sex Assigned At Female A [facility] Start: 07-29-2021 End: 11-24-2023 Tobacco smoking status WVIS Unknown if ever smoked [facility] Start: 03-08-2019 None [facility] Start: 12-01-2020 Alone [facility] Start: 03-08-2019 Cigarettes [facility] Start: 02-28-2022 End: 03-13-2023 Tobacco use panel [facility] Adult Depression Screening Assessment 5 [facility] Start: 01-07-2019 End: 09-27-2024 Sex Female (finding) [facility] Start: 01-21-2025 Tobacco smoking stat us NHIS Ex-smoker (finding) [facility] NEGATED: Highlighted row Not [facility] Medical Equipment Procedure Code Equipment Code Equipment Origin al Text Equipment Identifier Dates Replacement of battery of baclofen pump SYNCHROMED PAIN PUMP FDA Start: 02-07-2024 Replacement of battery of baclofen pump SYNCHROMED PAIN PUMP FDA Start: 02-07-2024 Test Blood sugar 3x daily. 250.02, insulin dep [id number] Start: 11-17-2009 Comment on above: Test Blood [...] 03-10-2019 TI ELIOT TFNA FDA Start: 03-10-2019 Goals Date Patient Goal Desired Activity /State Functional Status Date Assessment Result Facility 04-28-2022 Functional Status Moderate assistance [facility] 12-01-2021 Functional Status [facility] 09-22-2014 Are you deaf, or do you have serious difficulty hearing No 09/22/2014 9:26 AM Zahra Espinosa LPN No [facility] 09-22-2014 Are you blind, or do you have serious difficulty seeing, even when wearing glasses No 09/22/2014 9:26 AM Zahra Espinosa LPN No [facility] 09-22-2014 Do you have serious difficulty walking or climbing stairs No 09/22/2014 9:26 AM Zahra Espinosa LPN No [facility] 09-22-2014 Do you have difficul ty dressing or bathing No 09/22/2014 9:26 AM EDT Zahra Thurman LPN No [facility] 09-22-2014 Because of a physica l, mental, or emotional condition, do you have difficulty doing errands alone such as visiting a physician's office or shopping Yes 09/22/2014 9:26 AM EDT Zahra Thurman LPN Yes [facility] Mental Status Date Assessment Result Facility 01-21-2025 Cognitive function Voice/Name [facility] Work Phone: 11-24-2023 Cognitive function Level Of Cons ciousness Awake;Alert;Appropriate;Fol lows Commands [facility] Work Phone: 10-17-2022 Mental Status Orientation Oriented x 4 [facility] 10-17-2022 Mental Status [facility] 12-01-2021 Mental Status [facility] 09-22-2014 Because of a physica l, mental, or emotional condition, do you have serious difficulty concentrating, remembering, or making decisions Yes 09/22/2014 9:26 AM EDT Zahra Thurman LPN Yes [facility] Clinical Notes 02-04-2008 to 01-21-2025 Telephone Encounter - Funmilayo Pope MD - 01/20/2025 9:57 AM EDTTelephone Encounter - Funmilayo Pope MD - 01/20/2025 9:57 AM EDT Note Date & Type Note Facility 01-21-2025 Consult note [facility] 01-21-2025 Procedure note [facility] 01-21-2025 Procedure note [facility] 01-21-2025 Consult note [facility] 01-21-2025 History and physi jeromy note [facility] 01-21-2025 Note [facility] Medical Records Department [address] [place] [address] History Physical Exam 01/21/25 0836 MR#: [id number] Acct: [id number] Name: JULIANA MERIDA YANELI Rep #: [id number] : 1960 64 From: Fer Friend DO PCP: Mariah Atkinson MD Status:REG [facility] Location: [facility]15-1 HPI - General General Date of Admission: 01/21/25 Date of Service: 01/21/25 HPI Narrative JULIANA MERIDA, is a 64 F who presentsWANDMario MERIDA, is a 64 F who presents to the office today for establishment with [facility] for concerns of abdominal epigastric pain, heartburn, and constipation. She resides at [facility] due to history of stroke affecting mobility, speech, and right side. She reports severe heartburn first thing in the morning with burning she feels to the top of her throat even while on pantoprazole 40mg daily. She reports that food and laying down too soon make the pain worse. She is also reporting constipation. She has an implanted pain pump infusing morphine at a basal rate for chronic pain. Her facility has a bowel protocol but she has to wait 3 days before getting any medicine for relief. She denies difficulty chewing and swallowing, throat clearing, cough, sinus drainage, nausea, emesis, abdominal cramping, diarrhea, hematochezia, and melena. [facility] Medical History History of pressure injury of skin Gastric reflux History of pain when walking Leg cramps Lives in alf Hx of fracture of hip Wears glasses [...] Medications ???Medication ???Instructions ???Recorded ???Last Taken ???Type ondansetron HCl 4 mg tablet 4 mg PO Q6H PRN PRN Nausea 9 Unknown History prazosin 1 mg capsule 1 mg PO QHS 03/08/19 03/07/19 20:0 0 History albuterol sulfate 2.5 mg/3 mL 2.5 mg inhalation Q4H PRN SOB 07/15 12/03 Unknown History (0.083 %) solution for nebulization apixaban 5 mg tablet (Eliquis) 5 mg PO BID 07/29/21 01/17/25 Hist ory lurasidone 80 mg tablet (Latuda) 80 mg PO DAILY 07/29/21 Unknown Hi story naloxegol 25 mg tablet (Movantik) 25 mg PO DAILY 07/29/21 Unknown H istory acetaminophen 325 mg tablet 650 mg PO Q6H PRN PRN fever or jimy n 12/18/22 Unknown History benzonatate 100 mg capsule 100 mg PO Q8H PRN cough 12/18/22 U nknown History bisacodyl 5 mg tablet,delayed 5 mg [...] PO Q4H PRN cough 3 Unknown History ipratropium 0.5 mg-albuterol 3 mg 3 [...] mg tablet 2.5 mg PO DAILY 12/18/22 01/20/25 History loratadine 10 mg tablet (Claritin) 10 mg PO DAILY 12/18/22 Unknown History montelukast 10 mg tablet 10 mg PO DAILY 12/18/22 Unknown Hi story polyethylene glycol 3350 17 17 g PO DAILY PRN constipation 01/04 Unknown History gram/dose oral powder (Miralax) duloxetine 60 mg capsule,delayed 60 mg PO BID 01/16/23 Unknown Hist ory release (Cymbalta) pregabalin 100 mg capsule 100 mg PO BID 01/16/23 Unknown His tory Lactobacillus rhamnosus GG 10 1 cap PO BID 11/27/23 Unknown Hist ory billion cell capsule (Culturelle) insulin lispro 100 unit/mL 1 sliding scale dose subcut TID Unknown History subcutaneous pen (Humalog KwikPen (U-100) Insulin) loperamide 2 mg capsule 4 mg PO (more content not included)... [facility] 01-21-2025 Consult note [facility] 01-20-2025 Telephone encounter Note ----- Message from Haylee Montana RN sent at 01/18/2025 9:13 AM EDT ----- Please enter and sign therapy plan for Prolia for Saturday01/25/25. Thanks Haylee [facility] Work Phone: 01-20-2025 Miscellaneous Notes ----- Message from Haylee Montana RN sent at 01/18/2025 9:13 AM EDT ----- Please enter and sign therapy plan for Prolia for Saturday01/25/25. Thanks Haylee documented in this encounter [facility] 11-20-2024 Evaluation note Diagnosis Onset Date Resolution Constipation acute November 20 2:17pm Epigastric abdominal pain acute November 20, 2024 2: 17pm Esophageal reflux chronic November 2:17pm Constipation acute January 21, 2 025 7:19am Epigastric abdominal pain acute January 21, 2025 7:19am [facility] Work Phone: 1(786) 950-912103-25-2025 Consult note Author Yosef Camp [facility] Note Date/Time January 21, 2025 9:13 am [facility] Medical Records Department [address] [place] [address] Anesthesia Postop Eval I 01/21/25911 MR#: [id number] Acct: [id number] Name: JULIANA MERIDA YANELI Rep #:[id number] : 1960 64 From: Yosef Camp PCP: Mariah Atkinson MD Status:REG SD Y Race: C Location: [place] [address] Anesthesia: Postop Eval I Current Vital Signs Temperature: 97.2 F Pulse Rate: 92 Blood Pressure: 126/67 Respiratory Rate: 16 Pulse Ox: 97 Oxygen Delivery Method: Room Air Assessment Airway patent: Yes Spontaneous unlabored respirations: Yes Mental status: Awake and Calm nausea: No Vomiting: No Anesthesia Complication: No Fluid Hydration Crystalloid volume administer (ml): 300 Total IV fluid infused: 300 Progress Note Anesthesia document: Postop Eval 1 completed: Yes 01/21/25912 <Electronically signed by Yosef Camp > Date _ Yosef Nolasco Signature: Date CC: ~ Signed [facility] Work Phone: 1(541) 497-720803-16-2025 Radiology Diagnostic study note [facility] Imaging Services [address] [place] [address] Abdomen/Pelvis without Cont MR#: [id number] Acct: [id number] Name: JULIANA MERIDA YANELI Rep #: [id number] : 1960 F 63 From: Kimo Loaiza MD PCP: Mariah Atkinson MD Status: REG ER Study:Abdomen/Pelvis without Cont Date of Exa m: 09/27/24 Exam# [id number] Ordering Dr: Graham Cochran DO PROCEDURE: ABDOMEN/PELVIS WITHOUT CONT 09/27/2024 REASON FOR EXAM: KIDNEY STONE TECHNIQUE: Abdomen and pelvis CT without intravenous contrast. Coronal and Sagittal reconstruction series wereprovided. One or more dose reduction techniques were used (e.g., Automated exposure control, adjustment of the mA and/or kV according to patient size, use of iterative reconstruction technique). COMPARISON: 09/12/2024. FINDINGS: Noncontrast technique limits evaluation of the abdominal and pelvic viscera. There is now cqtb-lccylsi-cujm-right mild basilar patchy ill-defined ground- glass opacities of the lower lobes which may [...] cyst with solid lesion not excluded. May follow- upwith nonemergent renal ultrasound as warranted. No bowel dilation or free air. Status post appendectomy. [place] artifact from spinal stimulator device. Aortoiliac atherosclerotic calcification. No abdominal aortic aneurysm. The bladder appears within limits. No free fluid seen. Status post hysterectomy. The ovaries appearwithin limits on noncontrast imaging. [place] artifact from left femoral gamma nail. Small fat containing left inguinalhernia without stranding again noted. CT/Abdomen/Pelvis without Cont IMPRESSION: There is now ukwn-panayjx-gamx-right mild basilar patchy ill-defined ground- glass opacities of the lower lobes which may [...] the liver. Status post cholecystectomy. Reading Location: [id number] CC: Mariah Atkinson MD; Dr. Gregorio Cochran, DO ~ Touch Up Painter Hand: Signed [facility]01-02-2025 Telephone encounter Note* Telephone Encounter - Sandra Dunn - 07/16/2024 9:43 AM EST [employer] Approved [id number] [facility] Medicare/Portal 07.15.24-07.15.25 2 visits Sandra Corado, Scales Inspector [facility]01-02-2025 Miscellaneous Notes* Telephone Encounter - Sandra Dunn - 07/16/2024 9:43 AM EST [employer] Approved [id number] [facility] Medicare/Portal 07.15.24-07.15.25 2 visits Sandra Corado Scales Inspector documented [facility] Telephone encounter Note * Telephone Encounter - Valeria Kapoor MA - 03/23/2024 11:30 AM EDT Patient was a no show for her appointment today. I called the facility and left a voice mail with the phone number for a call back to get rescheduled. I also sent Ramandeep in [facility] office a bubble chat message letting them know patient was a no show today!! [facility]09-09-2024 Miscellaneous Notes* Telephone Encounter - Valeria Sevilla MA - 03/23/2024 11:30 AM EDT Patient was a no show for her appointment today. I called the facility and left a voice mail with the phone number for a call back to get rescheduled. I also sent Ramandeep in [facility] office a bubble chat message letting them know patient was a no show today!! documented in [facility] Telephone encounter Note * Telephone Encounter - Valeria Kapoor MA - 03/23/2024 11:16 AM EDT error [facility]09-09-2024 Miscellaneous Notes* Telephone Encounter - Valeria Sevilla MA - 03/23/2024 11:16 AM EDT error documented in this encounter[facility]05-12-2024 Discharge summary Author Dino Pena [facility] November 24, 2023 8:14pm Note Date/Time November 24, 2023 5:05p m [facility] Medical Records Department [address] [place] [address] Emergency Department Summary 11/24/23 MR#: [id number] Acct: [id number] Name: JULIANA MERIDA YANELI Rep #:[id number] : 1960 63 From: Dino Pena MD PCP: Bianca Palomares MD Status:REG ER Location: ED HPI History of Present Illness Chief Complaint: Edema Informant: patient Narrative Narrative: 63-year-old patient in a alf presenting with multiple complaints on herown behalf. [...] no orthopnea no new cough or fevers. [facility] Medical History Anxiety Cerebral vascular disease [...] mg rectal suppository (Dulcolax (bisacodyl)) 10 mg WA Q8H PRN 12/18/22 [History Last Taken Unknown] [...] Oxygen Delivery Method Room Air Room Air 11/24/23 18:43 11/24/23 19:00 Temperature Temperature Source Pulse [...] % (Auto) 69.2 Lymph % (Auto) 20.5 Ray % (Auto) 8.4 Eos % (Auto) 0.6 [...] Clarity Clear Urine pH 7.0 Ur Specific [place] 1.010 Urine Protein Negative Urine Glucose (UA) [...] right renal lesion. ACR White Paper guidelines (Salty et al. JACR 2018; 15(2):264-273) recommend MRI [...] [Dulcolax (bisacodyl)] 10 mg suppository 10 mg WA Q8H PRN epinephrine [EpiPen] 0.3 mg/0.3 mL [...] your Primary Care Provider. Call [facility] ([phone]) or report to the closest Emergency Room. Call 911 if necessary. 11/24/232013 <Electronically signed by Dino Pena MD> Cosigner Signature (if applicable): CC: Bianca Palomares MD ~ Signed [facility] Work Phone: 1(263) 795-508504-25-2024 Progress note Author Karthikeyan Grove [facility] November 07, 2023 12:35pm Note Date/Time November 07, 2023 12: 35pm [facility] [address] [place] [address] Progress Note - Wound Care 11/07/23 1224 MR#: [id number] Acct: [id number] Name: JULIANA MERIDA Rep #:[id number] : 1960 63 From: Karthikeyan tavares DPM [...] service Follow-up Visit Follow-up Visit Follow-up Visit (Physician/LOGGING SUPERVISOR (Physician/LOGGING SUPERVISOR (Physician/LOGGING SUPERVISOR ) ) ) Arrival Mode Wheelchair Wheelchair [...] Visit Information Type of service Follow-up Visit (Physician/LOGGING SUPERVISOR ) Arrival Mode Wheelchair Transfer Assistance None [...] Under -Granulation Amt Medium (34-66%) -Granulation Quality [place] -Slough/Fibrin Yes -Necrosis Amt Large (67-100%) -Necrotic [...] Recorded Date Recorded By Document 10/17/23 10:13 [employer] 10/17/23 10:37 [employer] Document 10/24/23 10:01 [employer] 10/24/23 10:15 [employer] Document 10/31/23 09:59 [employer] DesOvalisop 10/31/23 10:10 [employer] Document 11/07/23 10:10 [employer] Desktop 11/07/23 10:27 [employer] 10/17/23 10/24/23 10/31/23 10:13 10:01 09:59 Wound [...] Medication -Comments injected w/ lidocaine per dr prefecto [place] - Nurse 3 - General Ulcer D/C NN Start: 10/17/23 09:30 Freq: Status: Active Protocol: Activity Type Activity Date Activity User E-sign Co-sign Detail Recorded Client Recorded Date Recorded By Document 10/17/23 10:51 GM Desktop 10/17/23 10:52 Document 10/24/23 10:22 BM Desktop 10/24/23 10:23 BM Document 10/31/23 11:54 DL [id number] 10/31/23 11:56 DL Document 11/07/23 10:31 KW [...] Summary of Care Provided Yes Facility Type Nursing Home Care Commercial Loan Officer Care Facility Facility Orders Sent Yes 11/07/23 [...] disease, next appointment 11/20/23. Pain: May take sqnc-zzf-frtegsi Tylenol for discomfort Host factors: DM type II with peripheral polyneuropathy, MRSA positive cultures,edema, chronic tobacco abuse. I answered all the patient's questions. To return to the wound healing center in 1 week or call sooner if the patient has any questions or concerns. 11/07/23 1235 <Electronically signed by Karthikeyan Grove DPM> Cosigner Signature (if applicable): CC: ~ Signed [facility] Work Phone: 1(997) 981-253604-18-2024 Progress note Author Karthikeyan Grove [facility] October 31, 2023 12:37pm Note Date/Time October 31, 2023 12: 26pm [facility] [address] [place] [address] Progress Note - Wound Care 10/31/23 1222 MR#: [id number] Acct: [id number] Name: JULIANA MERIDA Rep #:[id number] : 1960 63 From: Karthikeyan tavares DPM [...] service Follow-up Visit Follow-up Visit Follow-up Visit (Physician/LOGGING SUPERVISOR (Physician/LOGGING SUPERVISOR (Physician/LOGGING SUPERVISOR ) ) ) Arrival Mode Wheelchair Wheelchair [...] Recorded Date Recorded By Document 10/17/23 10:13 [employer] Desktop 10/17/23 10:37 [employer] Document 10/24/23 10:01 [employer] Desktop 10/24/23 10:15 [employer] Document 10/31/23 09:59 [employer] Desktop 10/31/23 10:10 [employer] 10/17/23 10/24/23 10/31/23 10:13 10:01 09:59 Wound [...] 10:51 Desktop 10/17/23 10:52 Document 10/24/23 10:22 [facility] Desktop 10/24/23 10:23 [facility] Document 10/31/23 11:54 DL [id number] 10/31/23 11:56 DL 10/17/23 10/24/23 10/31/23 10:51 [...] Summary of Care Provided Yes Facility Type Nursing Home Care Commercial Loan Officer Care Facility Facility Orders Sent Yes Assessment/Plan [...] disease, next appointment 11/20/23. Pain: May take siit-ojz-cfystbp Tylenol for discomfort Host factors: DM type II with peripheral polyneuropathy, MRSA positive cultures,edema, chronic tobacco abuse. I answered all the patient's questions. To return to the wound healing center in 1 week or call sooner if the patient has any questions or concerns. 10/31/23 1237 <Electronically signed by Karthikeyan Grove DPM> Cosigner Signature (if applicable): CC: ~ Signed [facility] Work Phone: [phone]) [phone] Progress note Author Karthikeyan Grove [facility] October 24, 2023 11:03am Note Date/Time October 24, 2023 10: 01am [facility] [address] [place] [address] Progress Note - Wound Care 10/24/23 1000 MR#: [id number] Acct: [id number] Name: JULIANA MERIDA Rep #:[id number] : 1960 63 From: Karthikeyan tavares DPM [...] Type of service Follow-up Visit Follow-up Visit (Physician/LOGGING SUPERVISOR (Physician/LOGGING SUPERVISOR ) ) Arrival Mode Wheelchair Wheelchair Patient [...] Recorded Date Recorded By Document 10/17/23 10:13 [facility] Desktop 10/17/23 10:37 [facility] 10/17/23 10:13 Wound Center Nurse 2 [...] referral to infectious disease. Pain: May take ilxc-hfw-fzhkihk Tylenol for discomfort Host factors: DM type II with peripheral polyneuropathy, MRSA positive cultures,edema, chronic tobacco abuse. I answered all the patient's questions. To return to the wound healing center in 1 week or call sooner if the patient has any questions or concerns. 10/24/23 1103 <Electronically signed by Karthikeyan Grove DPM> Cosigner Signature (if applicable): CC: ~ Signed [facility] Work Phone: 1(798) 501-175304-04-2024 Progress note Author Karthikeyan Grove [facility] October 17, 2023 7:55pm Note Date/Time October 17, 2023 10:[address] [facility] [address] [place] [address] Progress Note - Wound Care 10/17/23 1038 MR#: [id number] Acct: [id number] Name: JULIANA MERIDA YANELI Rep #:[id number] : 1960 63 From: Karthikeyan tavares DPM [...] Start: 10/17/23 09:30 Freq: Status: Active Protocol: LOWEXMaria Luisa Activity Type Activity Date Activity User E-sign Co-sign Detail Recorded Client Recorded Date Recorded By Document 10/17/23 09:32 CO [employer] 10/17/23 09:40 CO 10/17/23 09:32 - Today's Visit Information Type of service Follow-up Visit (Physician/LOGGING SUPERVISOR ) Arrival Mode Wheelchair Patient Identification Verified [...] Recorded Date Recorded By Document 10/17/23 09:32 CO [employer] 10/17/23 09:40 CO 10/17/23 09:32 Wound Center Nurse 1 #1 [...] Recorded Date Recorded By Document 10/17/23 10:13 [facility] Desktop 10/17/23 10:37 [facility] 10/17/23 10:13 Wound Center Nurse 2 [...] referral to infectious disease. Pain: May take mifj-mmr-njhypmn Tylenol for discomfort Host factors: DM type II with peripheral polyneuropathy, MRSA positive cultures,edema, chronic tobacco abuse. I answered all the patient's questions. To return to the wound healing center in 1 week or call sooner if the patient has any questions or concerns. 10/17/231954 <Electronically signed by Karthikeyan Grove DPM> Cosigner Signature (if applicable): CC: ~ Signed [facility] Work Phone: [phone]) 817-183603-28-2024 Progress note Author Karthikeyan Grove [facility] October 10, 2023 6:59pm Note Date/Time October 10, 2023 10: 34am [facility] [address] [place] [address] Progress Note - Wound Care 10/10/23 1031 MR#: [id number] Acct: [id number] Name: JULIANA MERIDA Rep #:[id number] : 1960 63 From: Karthikeyan tavares DPM [...] RB Document 10/03/23 09:41 Desktop 10/03/23 09:51 GM Document 10/10/23 09:50 DL Desktop 10/10/23 09:53 DL 09/19/23 09/26/23 10/03/23 09:30 10:12 09:41 - Today's Visit Information Type of service Follow-up Visit Follow-up Visit Follow-up Visit (Physician/LOGGING SUPERVISOR (Physician/LOGGING SUPERVISOR (Physician/LOGGING SUPERVISOR ) ) ) Arrival Mode Wheelchair Wheelchair [...] Visit Information Type of service Follow-up Visit (Physician/LOGGING SUPERVISOR ) Arrival Mode Wheelchair Transfer Assistance None [...] RB Document 10/03/23 09:41 Desktop 10/03/23 09:51 GM Document 10/10/23 09:50 [...] (34-66%) Medium (34-66%) Small (1-33%) -Granulation Quality [place] -Slough/Fibrin Yes Yes -Necrosis Amt Medium (34-66%) [...] Desktop 09/19/23 09:59 GM Document 09/26/23 10:37 Desktop 09/26/23 10:39 GM Document 10/03/23 10:18 [facility] Desktop 10/03/23 10:30 [facility] 09/19/23 09/26/23 10/03/23 09:53 10:37 10:18 [...] 09/26/23 11:14 RB Document 10/03/23 11:49 DL [id number] 10/03/23 11:50 DL 09/19/23 09/26/23 10/03/23 10:17 [...] hospital for xray as ordered Facility Type Commercial Loan Officer Care Facility Orders Sent Yes Assessment/Plan Assessment/Plan [...] Recommended referral to infectiousdisease. Pain: May take ljwm-bpd-qpgupsa Tylenol for discomfort Host factors: DM type II with peripheral polyneuropathy, MRSA positive cultures,edema, chronic tobacco abuse. I answered all the patient's questions. To return to the wound healing center in 1 week or call sooner if the patient has any questions or concerns. 10/10/231858 <Electronically signed by Karthikeyan Grove DPM> Cosigner Signature (if applicable): CC: ~ Signed [facility] Work Phone: [phone]) 680-887903-21-2024 History and physical note Author [facility] October [facility], [facility]23 1:23pm Note Date/Time October 03, 2023 10: 09am [facility] [address] [place] [address] H&P Exam - Wound Care 10/03/23 1008 MR#: [id number] Acct: [id number] Name: JULIANA MERIDA Rep #:[id number] : 1960 62 From: Karthikeyan tavares DPM [...] fever or otherwise feeling of unwell reported. [facility] Medical History Anxiety Cerebral vascular disease [...] mg rectal suppository (Dulcolax (bisacodyl)) 10 mg WA Q8H PRN 12/18/22 [History Last Taken Unknown] [...] service Follow-up Visit Follow-up Visit Follow-up Visit (Physician/LOGGING SUPERVISOR (Physician/LOGGING SUPERVISOR (Physician/LOGGING SUPERVISOR ) ) ) Arrival Mode Wheelchair Wheelchair [...] Date Recorded By Document 09/19/23 09:30 RB [employer] 09/19/23 09:32 RB Document 09/26/23 10:12 RB [...] (34-66%) Medium (34-66%) Small (1-33%) -Granulation Quality [place] -Slough/Fibrin Yes Yes -Necrosis Amt Medium (34-66%) [...] By Document 09/19/23 09:53 Desktop 09/19/23 09:59 GM Document 09/26/23 10:37 Desktop 09/26/23 10:39 09/19/23 [...] By Document 09/19/23 10:17 Desktop 09/19/23 10:18 GM Document 09/26/23 11:13 [...] Recommended referral to infectiousdisease. Pain: May take lawy-etd-pztjwrm Tylenol for discomfort Host factors: DM type II with peripheral polyneuropathy, MRSA positive cultures,edema, chronic tobacco abuse. I answered all the patient's questions. To return to the wound healing center in 1 week or call sooner if the patient has any questions or concerns. 10/03/23 1323 <Electronically signed by Karthikeyan Grove DPM> Cosigner Signature (if applicable): CC: ~ Signed [facility] Work Phone: [phone]) [phone] Progress note Author Chilango Laughlin [facility] September 26, 2023 2:01pm Note Date/Time September 26, 2023 12: 14pm [facility] [address] [place] [address] Progress Note - Wound Care 09/26/23 1209 MR#: [id number] Acct: [id number] Name: JULIANA MERIDA Rep #:[id number] : 1960 62 From: Chilango joy MD [...] 11:34 09/26/23 11:34 Charges/Coding Procedures Integumentary 111xxx-113xx: 92025 Carla subq tissue 20 sq cm/< Physical [...] Post-Debridement Measurements and Additional Note: Post-Debridement Measurements/Treatment [facility] Nurse 1 - General Ulcer Assessment Start: 09/19/23 09:30 Freq: Status: Active Protocol: CLOVIS Activity Type Activity Date Activity User E-sign Co-sign Detail Recorded Client Recorded Date Recorded By Document 09/19/23 09:30 Desktop 09/19/23 09:32 RB Document 09/26/23 10:12 Desktop 09/26/23 10:15 RB 09/19/23 09/26/23 09:30 10:12 - Today's Visit Information Type of service Follow-up Visit Follow-up Visit (Physician/LOGGING SUPERVISOR (Physician/LOGGING SUPERVISOR ) ) Arrival Mode Wheelchair Wheelchair Transfer [...] Amt Medium (34-66%) Medium (34-66%) -Granulation Quality [place] -Slough/Fibrin Yes Yes -Necrosis Amt Medium (34-66%) [...] 1 week. This note was generated with Server Densityation software. It may contain incorrectwords, spelling, and punctuation that were not noted in checking the note beforesigning. 09/26/23 1401 <Electronically signed by Chilango Laughlin MD> Cosigner Signature (if applicable): CC: ~ Signed [facility] Work Phone: [phone]) [phone] Progress note Author Chilango Laughlin [facility] September 19, 2023 10:17am Note Date/Time September 19, 2023 10:1 0am [facility] [address] [place] [address] Progress Note - Wound Care 09/19/23 1005 MR#: [id number] Acct: [id number] Name: JULIANA MERIDA Rep #:[id number] : 1960 62 From: Chilango joy MD [...] 09:30 09/19/23 09:30 Charges/Coding Procedures Integumentary 111xxx-113xx: 82792 Carla subq tissue 20 sq cm/< Physical [...] Visit Information Type of service Follow-up Visit (Physician/LOGGING SUPERVISOR ) Arrival Mode Wheelchair Transfer Assistance None [...] Under -Granulation Amt Medium (34-66%) -Granulation Quality [place] -Slough/Fibrin Yes -Necrosis Amt Medium (34-66%) -Necrotic [...] 1 week. This note was generated with NICO dictation software. It may contain incorrectwords, spelling, and punctuation that were not noted in checking the note beforesigning. 09/19/23 1017 <Electronically signed by Chilango Laughlin MD> Cosigner Signature (if applicable): CC: ~ Signed [facility] Work Phone: [phone]) 452-401103-05-2024 Miscellaneous Notes* Telephone Encounter - Funmilayo Pope MD - 09/17/2023 2:59 PM EST Needs allergies updated documented [facility] Progress note Author Chilango Laughlin [facility] September 05, 2023 12:52pm Note Date/Time September 05, 2023 10:04am [facility] [address] [place] [address] Progress Note - Wound Care 09/05/23 0958 MR#: [id number] Acct: [id number] Name: JULIANA MERIDA Rep #:[id number] : 1960 62 From: Chilango joy MD [...] anaerobic bacteria isolated. Charges/Coding Procedures Integumentary 111xxx-113xx: 52265 Carla subq tissue 20 sq cm/< Physical [...] Document 08/29/23 09:30 BM Desktop 08/29/23 09:34 BM Document 09/05/23 09:29 RB Desktop 09/05/23 09:32 RB 08/15/23 08/22/23 08/29/23 08:53 08:51 09:30 - Today's Visit Information Type of service Follow-up Visit Follow-up Visit Follow-up Visit (Physician/LOGGING SUPERVISOR (Physician/LOGGING SUPERVISOR (Physician/LOGGING SUPERVISOR ) ) ) Arrival Mode Wheelchair Wheelchair [...] Visit Information Type of service Follow-up Visit (Physician/LOGGING SUPERVISOR ) Arrival Mode Wheelchair Transfer Assistance None [...] Small (1-33%) Medium (34-66%) -Granulation Quality [place] -Slough/Fibrin Yes Yes -Necrosis Amt Medium (34-66%) [...] Attached -Granulation Amt Medium (34-66%) -Granulation Quality [place] -Slough/Fibrin Yes -Necrosis Amt Medium (34-66%) -Necrotic [...] Desktop 08/15/23 09:31 GM Document 08/22/23 09:14 Desktop 08/22/23 09:28 Document 08/29/23 09:47 Desktop 08/29/23 09:49 Document [...] -Pain Behavior -Alleviating Factors/Interventions WC - Nurse 3 - General Ulcer [...] 1 week. This note was generated with NICO dictation software. It may contain incorrectwords, spelling, and punctuation that were not noted in checking the note beforesigning. 09/05/23 1252 <Electronically signed by Chilango Laughlin MD> Cosigner Signature (if applicable): CC: ~ Signed [facility] Work Phone: [phone]) 173-987302-16-2024 Progress note Author Chilango Laughlin [facility] August 30, 2023 1:48pm Note Date/Time August 29, 2023 10:09am [facility] [address] [place] [address] Progress Note - Wound Care 08/29/23 1008 MR#: [id number] Acct: [id number] Name: JULIANA MERIDA Rep #:[id number] : 1960 62 From: Chilango joy MD [...] anaerobic bacteria isolated. Charges/Coding Procedures Integumentary 111xxx-113xx: 64107 Carla subq tissue 20 sq cm/< Physical [...] 08/29/23 09:30 BMF Desktop 08/29/23 09:34 BMF 08/15/23 08/22/23 08/29/23 08:53 08:51 09:30 - Today's Visit Information Type of service Follow-up Visit Follow-up Visit Follow-up Visit (Physician/LOGGING SUPERVISOR (Physician/LOGGING SUPERVISOR (Physician/LOGGING SUPERVISOR ) ) ) Arrival Mode Wheelchair Wheelchair [...] Recorded Date Recorded By Document 08/15/23 08:53 [employer] 08/15/23 08:59 BM Document 08/22/23 08:51 DL Desktop 08/22/23 08:59 DL Document 08/29/23 09:30 [employer] Code[employer]ktop 08/29/23 09:34 BMF 08/15/23 08/22/23 08/29/23 08:53 [...] Small (1-33%) Medium (34-66%) -Granulation Quality [place] -Slough/Fibrin Yes Yes -Necrosis Amt Medium (34-66%) [...] Warm) -Tenderness on Palpation (Olri-wound No No No Skin Appearance) -Ulcer Cleansing [...] Recorded Date Recorded By Document 08/15/23 09:25 [employer] Desktop 08/15/23 09:31 GM Document 08/22/23 09:14 GM Desktop 08/22/23 09:28 GM Document 08/29/23 09:47 GM Desktop 08/29/23 09:49 GM 08/15/23 08/22/23 08/29/23 [...] Moaning -Alleviating Factors/Interventions Medication,Will continue to monitor WC - Nurse 3 - General Ulcer [...] 1 week. This note was generated with NICO dictation software. It may contain incorrectwords, spelling, and punctuation that were not noted in checking the note beforesigning. 08/30/23 1348 <Electronically signed by Chilango Laughlin MD> Cosigner Signature (if applicable): CC: ~ Signed [facility] Work Phone: [phone]) 286-999402-08-2024 Progress note Author Chilango Laughlin [facility] August 22, 2023 9:39am Note Date/Time August 22, 2023 9 :33am [facility] [address] [place] [address] Progress Note - Wound Care 08/22/23 0928 MR#: [id number] Acct: [id number] Name: JULIANA MERIDA Rep #:[id number] : 1960 62 From: Chilango joy MD [...] Method Room Air Charges/Coding Procedures Integumentary 111xxx-113xx: 93006 Carla subq tissue 20 sq cm/< Physical [...] Type of service Follow-up Visit Follow-up Visit (Physician/LOGGING SUPERVISOR (Physician/LOGGING SUPERVISOR ) ) Arrival Mode Wheelchair Wheelchair Transfer [...] Numeric Is Patient Pain Free? Yes Yes RUY - Nurse 1 - General Ulcer Measurement [...] Medium (34-66%) Small (1-33%) -Granulation Quality [place] -Slough/Fibrin Yes -Necrosis Amt Medium (34-66%) Small [...] Document 08/15/23 09:25 GM Desktop 08/15/23 09:31 Document 08/22/23 09:14 Desktop 08/22/23 09:28 08/15/23 08/22/23 09:25 09:14 [...] Recorded Date Recorded By Document 08/15/23 09:34 Desktop 08/15/23 09:36 08/15/23 09:34 Wound Care Center [...] 1 week. This note was generated with NICO dictation software. It may contain incorrectwords, spelling, and punctuation that were not noted in checking the note beforesigning. 08/22/23 0939 <Electronically signed by Chilango Laughlin MD> Cosigner Signature (if applicable): CC: ~ Signed [facility] Work Phone: [phone]) 140-952002-01-2024 Progress note Author Chilango Laughlin [facility] August 15, 2023 9:38am Note Date/Time August 15, 2023 9 :38am [facility] [address] [place] [address] Progress Note - Wound Care 08/15/23 0936 MR#: [id number] Acct: [id number] Name: JULIANA MERIDA YANELI Rep #:[id number] : 1960 62 From: Chilango joy MD PCP: Bianca Palomares MD Status:REG R Location: History of Present Illness Date of [...] Method Room Air Charges/Coding Procedures Integumentary 111xxx-113xx: 63292 Carla subq tissue 20 sq cm/< Physical [...] Recorded Date Recorded By Document 08/15/23 08:53 [facility] Code71ktop 08/15/23 08:59 [facility] 08/15/23 08:53 - Today's Visit Information Type of service Follow-up Visit (Physician/LOGGING SUPERVISOR ) Arrival Mode Wheelchair Transfer Assistance None [...] Recorded Date Recorded By Document 08/15/23 08:53 [facility] [employer] 08/15/23 08:59 [facility] 08/15/23 08:53 Wound Center Nurse 1 [...] 08/15/23 09:25 GM Desktop 08/15/23 09:31 GM 08/15/23 09:25 Wound Center Nurse 2 #1 [...] 0-10 Numeric Is Patient Pain Free? Yes RUY - Nurse 3 - General Ulcer D/C [...] 1 week. This note was generated with NICO dictation software. It may contain incorrectwords, spelling, and punctuation that were not noted in checking the note beforesigning. 08/15/23937 <Electronically signed by Chilango Laughlin MD> Cosigner Signature (if applicable): CC: ~ Signed [facility] Work Phone: 1(634) 338-341801-25-2024 Progress note Author Chilango Laughlin [facility] August 08, 2023 9:32am Note Date/Time August 08, 2023 9 :26am [facility] [address] [place] [address] Progress Note - Wound Care 08/08/23919 MR#: [id number] Acct: [id number] Name: JULIANA MERIDA Rep #:[id number] : 1960 62 From: Chilango joy MD [...] anaerobic bacteria isolated. Charges/Coding Procedures Integumentary 111xxx-113xx: 85759 Carla subq tissue 20 sq cm/< Physical [...] service Follow-up Visit Follow-up Visit Follow-up Visit (Physician/LOGGING SUPERVISOR (Physician/LOGGING SUPERVISOR (Physician/LOGGING SUPERVISOR ) ) ) Arrival Mode Wheelchair Wheelchair [...] Visit Information Type of service Follow-up Visit (Physician/LOGGING SUPERVISOR ) Arrival Mode Wheelchair Transfer Assistance None [...] Recorded Date Recorded By Document 07/18/23 08:50 [facility] Desktop 07/18/23 08:58 [facility] Document 07/25/23 08:49 [facility] Desktop 07/25/23 08:56 [facility] Document 08/01/23 08:39 BM Desktop 08/01/23 08:49 BM Document 08/08/23 09:02 DL Desktop 08/08/23 09:05 [...] Thickened -Granulation Amt Small (1-33%) -Granulation Quality Pale,[place] -Slough/Fibrin -Necrosis Amt Small (1-33%) -Necrotic Tissue [...] BMF Edit Result 08/01/23 09:52 BMF (1) [id number] 08/01/23 14:12 GM (1) #1 R Lat Ankle - Bleeding Controlled with NA => Pressure,Silver => Nitrate - Treatment Response => Procedure => Tolerated Well - Assistive Device(s) => Wheelchair 07/18/23 07/25/23 08/01/23 09:32 09:05 09:52 Wound [...] 09:22 Desktop 07/25/23 09:23 Document 08/01/23 10:06 [facility] Desktop 08/01/23 10:07 [facility] 07/18/23 07/25/23 08/01/23 09:48 09:22 10:06 [...] of Care Provided Yes Yes Facility Type Commercial Loan Officer Care Facility Assessment/Plan Assessment/Plan (1) Chronic ulcer [...] 1 week. This note was generated with NICO dictation software. It may contain incorrectwords, spelling, and punctuation that were not noted in checking the note beforesigning. 08/08/23 0932 <Electronically signed by Chilango Laughlin MD> Cosigner Signature (if applicable): CC: ~ Signed [facility] Work Phone: 1([phone]) 761-874401-18-2024 Progress note Author Chilango Laughlin [facility] August 01, 2023 6:49pm Note Date/Time August 01, 2023 1 0:52am [facility] [address] [place] [address] Progress Note - Wound Care 08/01/23 1048 MR#: [id number] Acct: [id number] Name: JULIANA MERIDA Rep #:[id number] : 1960 62 From: Chilango joy MD [...] anaerobic bacteria isolated. Charges/Coding Procedures Integumentary 111xxx-113xx: 21115 Carla subq tissue 20 sq cm/< Physical [...] Start: 07/18/23 08:50 Freq: Status: Active Protocol: RUYRadianceALINE Activity Type Activity Date Activity User E-sign Co-sign Detail Recorded Client Recorded Date Recorded By Document 07/18/23 08:50 [employer] 07/18/23 08:58 [employer] Document 07/25/23 08:49 [employer] 07/25/23 08:56 [employer] Document 08/01/23 08:39 [employer] 08/01/23 08:49 [employer] 07/18/23 07/25/23 08/01/23 08:50 08:49 08:39 - Today's Visit Information Type of service Follow-up Visit Follow-up Visit Follow-up Visit (Physician/LOGGING SUPERVISOR (Physician/LOGGING SUPERVISOR (Physician/LOGGING SUPERVISOR ) ) ) Arrival Mode Wheelchair Wheelchair [...] Recorded Date Recorded By Document 07/18/23 08:50 [facility] Desktop 07/18/23 08:58 [employer] Document 07/25/23 08:49 [employer] Desktop 07/25/23 08:56 [employer] Document 08/01/23 08:39 [employer] Desktop 08/01/23 08:49 [employer] 07/18/23 07/25/23 08/01/23 08:50 08:49 08:39 Wound [...] 09:05 Desktop 07/25/23 09:11 Document 08/01/23 09:52 [facility] Desktop 08/01/23 09:57 [facility] 07/18/23 07/25/23 08/01/23 09:32 09:05 09:52 [...] 09:22 Desktop 07/25/23 09:23 Document 08/01/23 10:06 [facility] Desktop 08/01/23 10:07 [facility] 07/18/23 07/25/23 08/01/23 09:48 09:22 10:06 [...] of Care Provided Yes Yes Facility Type Nursing Home Care Facility Assessment/Plan Assessment/Plan (1) Chronic ulcer [...] 1 week. This note was generated with NICO dictation software. It may contain incorrectwords, spelling, and punctuation that were not noted in checking the note beforesigning. 08/01/23 671 <Electronically signed by Chilango Laughlin MD> Cosigner Signature (if applicable): CC: ~ Signed [facility] Work Phone: [phone] 833-888201-11-2024 Progress note Author Chilango Laughlin [facility] July 25, 2023 10:31am Note Date/Time July 25, 2023 1 0:31am [facility] [address] [place] [address] Progress Note - Wound Care 07/25/23 1028 MR#: [id number] Acct: [id number] Name: JULIANA MERIDA Rep #:[id number] : 1960 62 From: Chilango joy MD [...] anaerobic bacteria isolated. Charges/Coding Procedures Integumentary 111xxx-113xx: 31649 Carla subq tissue 20 sq cm/< Physical [...] Recorded Date Recorded By Document 07/18/23 08:50 [employer] Desktop 07/18/23 08:58 [employer] Document 07/25/23 08:49 [employer] 07/25/23 08:56 [employer] 07/18/23 07/25/23 08:50 08:49 - Today's Visit Information Type of service Follow-up Visit Follow-up Visit (Physician/LOGGING SUPERVISOR (Physician/LOGGING SUPERVISOR ) ) Arrival Mode Wheelchair Wheelchair Transfer [...] Recorded Date Recorded By Document 07/18/23 08:50 [employer] Desktop 07/18/23 08:58 BMF Document 07/25/23 08:49 [employer] Desktop 07/25/23 08:56 BMF 07/18/23 07/25/23 08:50 [...] Recorded Date Recorded By Document 07/18/23 09:32 [employer] 07/18/23 09:38 Document 07/25/23 09:05 Desktop 07/25/23 09:11 07/18/23 07/25/23 09:32 09:05 Wound Center Nurse [...] Recorded Date Recorded By Document 07/18/23 09:48 [employer] 07/18/23 09:50 Document 07/25/23 09:22 [employer] 07/25/23 09:23 07/18/23 07/25/23 09:48 09:22 Wound [...] 1 week. This note was generated with NICO dictation software. It may contain incorrectwords, spelling, and punctuation that were not noted in checking the note beforesigning. 07/25/23 1031 <Electronically signed by Chilango Laughlin MD> Cosigner Signature (if applicable): CC: ~ Signed [facility] Work Phone: [phone]) [phone] Progress note Author Chilango Laughlin [facility] July 11, 2023 9:25am Note Date/Time July 11, 2023 9:21am [facility] [address] [place] [address] Progress Note - Wound Care 07/11/23918 MR#: [id number] Acct: [id number] Name: JULIANA MERIDA Rep #:[id number] : 1960 62 From: Chilango joy MD [...] Method Room Air Charges/Coding Procedures Integumentary 111xxx-113xx: 43306 Carla subq tissue 20 sq cm/< Physical [...] Recorded Date Recorded By Document 07/04/23 08:52 [facility] Desktop 07/04/23 09:03 [facility] Document 07/11/23 08:53 Desktop 07/11/23 09:03 DL 07/04/23 07/11/23 08:52 08:53 - Today's Visit Information Type of service Nurse-only Follow-up Visit Visit (Physician/LOGGING SUPERVISOR ) Arrival Mode Wheelchair Wheelchair Transfer Assistance [...] Amt Large (67-100%) Small (1-33%) -Granulation Quality [place] -Slough/Fibrin Yes -Necrosis Amt Small (1-33%) Medium [...] painful last covid. current few days to [facility] she's touch wearing is dated for 06/21. [facility] has not changed it since then and had not called for new orders. Right Calf (cm) 35 34 Right Ankle (cm) 21.5 21.5 WC - Nurse 2 - General Ulcer CM Notes Start: 07/04/23 08:52 Freq: Status: Active Protocol: Activity Type Activity Date Activity User E-sign Co-sign Detail Recorded Client Recorded Date Recorded By Document 07/11/23 09:15 GM Desktop 07/11/23 09:18 GM 07/11/23 09:15 Wound Center Nurse 2 #1 [...] BMF Edit Result 07/04/23 08:52 BMF (1) [id number] 07/05/23 06:38 PL (1) Left - Multi-Layered [...] 1 week. This note was generated with NICO dictation software. It may contain incorrectwords, spelling, and punctuation that were not noted in checking the note beforesigning. 07/11/2325 <Electronically signed by Chilango Laughlin MD> Cosigner Signature (if applicable): CC: ~ Signed [facility] Work Phone: [phone]) 690-291911-30-2023 Progress note Author Chilango Laughlin [facility] June 13, 2023 10:53am Note Date/Time June 13, 2023 10:53am [facility] [address] [place] [address] Progress Note - Wound Care 06/13/23 1048 MR#: [id number] Acct: [id number] Name: JULIANA MERIDA Rep #:[id number] : 1960 62 From: Chilango joy MD [...] Method Room Air Charges/Coding Procedures Integumentary 111xxx-113xx: 71097 Carla subq tissue 20 sq cm/< Physical [...] Start: 05/16/23 09:08 Freq: Status: Active Protocol: RUY.LOWEXMaria Luisa Activity Type Activity Date Activity User E-sign Co-sign Detail Recorded Client Recorded Date Recorded By Document 05/16/23 09:08 JF Laptop 05/16/23 09:15 JF Document 05/23/23 09:50 BMF Desktop 05/23/23 09:56 BMF Document 05/30/23 09:16 DL Desktop 05/30/23 09:30 DL Document 06/13/23 09:52 BMF Desktop 06/13/23 09:57 BMF 05/16/23 05/23/23 05/30/23 09:08 09:50 09:16 WC - Today's Visit Information Type of service Follow-up Visit Follow-up Visit Follow-up Visit (Physician/LOGGING SUPERVISOR (Physician/LOGGING SUPERVISOR (Physician/LOGGING SUPERVISOR ) ) ) Arrival Mode Wheelchair Wheelchair [...] Visit Information Type of service Follow-up Visit (Physician/LOGGING SUPERVISOR ) Arrival Mode Wheelchair Transfer Assistance None [...] By Document 05/16/23 09:08 Laptop 05/16/23 09:15 JF Document 05/23/23 09:50 BMF Desktop 05/23/23 09:56 BMF Document 05/30/23 09:16 DL Desktop 05/30/23 09:30 DL Document 06/13/23 09:52 [facility] Desktop 06/13/23 09:57 BMF 05/16/23 05/23/23 05/30/23 09:08 09:50 09:16 Wound [...] (67-100%) Small (1-33%) -Granulation Quality [place] -Slough/Fibrin Yes No -Necrosis Amt Small (1-33%) [...] Desktop 05/16/23 09:30 GM Document 05/23/23 10:16 Desktop 05/23/23 10:21 GM Document 05/30/23 09:52 DL Desktop 05/30/23 09:57 DL Document 06/13/23 10:09 Desktop 06/13/23 10:10 05/16/23 05/23/23 05/30/23 09:25 10:16 09:52 Wound [...] Document 05/23/23 10:36 BMF Desktop 05/23/23 10:37 [facility] Edit Result 05/23/23 10:36 F (1) [id number] 05/23/23 11:07 BMF Document 05/30/23 10:04 DL [...] Stable Ambulatory Status Wheelchair [facility] Medication Reconcilliation completed & No provided to patient/care provider Clinical Summary of Care Provided Yes Facility Type Nursing Home Care Facility 06/13/23 10:21 Wound Care Center [...] Clinical Summary of Care Provided Facility Type Commercial Loan Officer Care Facility Assessment/Plan Assessment/Plan (1) Chronic ulcer [...] 2 weeks. This note was generated with NICO dictation software. It may contain incorrectwords, spelling, and punctuation that were not noted in checking the note beforesigning. 06/13/23 1053 <Electronically signed by Chilango Laughlin MD> Cosigner Signature (if applicable): CC: ~ Signed [facility] Work Phone: [phone]) 554-309411-16-2023 Progress note Author Chilango Laughlin [facility] May 30, 2023 10:15am Note Date/Time May 30, 2023 10:15am [facility] [address] [place] [address] Progress Note - Wound Care 05/30/23 1013 MR#: [id number] Acct: [id number] Name: JULIANA MERIDA YANELI Rep #:[id number] : 1960 62 From: Chilango joy MD [...] Method Room Air Charges/Coding Procedures Integumentary 111xxx-113xx: 65149 Carla subq tissue 20 sq cm/< Physical [...] Start: 05/16/23 09:08 Freq: Status: Active Protocol: RUY.LOWRAHEEMT Activity Type Activity Date Activity User E-sign Co-sign Detail Recorded Client Recorded Date Recorded By Document 05/16/23 09:08 JF Laptop 05/16/23 09:15 JF Document 05/23/23 09:50 BMF Desktop 05/23/23 09:56 BMF Document 05/30/23 09:16 DL Desktop 05/30/23 09:30 DL 05/16/23 05/23/23 05/30/23 09:08 09:50 09:16 - Today's Visit Information Type of service Follow-up Visit Follow-up Visit Follow-up Visit (Physician/LOGGING SUPERVISOR (Physician/LOGGING SUPERVISOR (Physician/LOGGING SUPERVISOR ) ) ) Arrival Mode Wheelchair Wheelchair [...] (67-100%) Small (1-33%) -Granulation Quality [place] -Slough/Fibrin Yes No -Necrosis Amt Small (1-33%) [...] 35 Right Ankle (cm) 24.5 18 21 WC - Nurse 2 - General [...] BMF Edit Result 05/23/23 10:36 BMF (1) [id number] 05/23/23 11:07 BMF Document 05/30/23 10:04 DL [...] Summary of Care Provided Yes Facility Type Nursing Home Care Facility Assessment/Plan Assessment/Plan (1) Chronic ulcer [...] the holiday. This note was generated with Server Densityation software. It may contain incorrectwords, spelling, and punctuation that were not noted in checking the note beforesigning. 05/30/23 1015 <Electronically signed by Chilango Laughlin MD> Cosigner Signature (if applicable): CC: ~ Signed [facility] Work Phone: [phone]) 426-260611-09-2023 Progress note Author therese Laughlin [facility] May 23, 2023 10:23am Note Date/Time May 23, 2023 1 0:23am [facility] [address] [place] [address] Progress Note - Wound Care 05/23/23 1021 MR#: [id number] Acct: [id number] Name: JULIANA MERIDA Rep #:[id number] : 1960 62 From: Chilango joy MD PCP: Bianca Palomares MD Status:REG R Location: History of Present Illness Date of [...] Method Room Air Charges/Coding Procedures Integumentary 111xxx-113xx: 77846 Carla subq tissue 20 sq cm/< Physical [...] Start: 05/16/23 09:08 Freq: Status: Active Protocol: RYU.ALINE Activity Type Activity Date Activity User E-sign Co-sign Detail Recorded Client Recorded Date Recorded By Document 05/16/23 09:08 Laptop 05/16/23 09:15 Document 05/23/23 09:50 [facility] Desktop 05/23/23 09:56 [facility] 05/16/23 05/23/23 09:08 09:50 - Today's Visit Information Type of service Follow-up Visit Follow-up Visit (Physician/LOGGING SUPERVISOR (Physician/LOGGING SUPERVISOR ) ) Arrival Mode Wheelchair Wheelchair Transfer [...] 09:08 Laptop 05/16/23 09:15 Document 05/23/23 09:50 [facility] Desktop 05/23/23 09:56 [facility] 05/16/23 05/23/23 09:08 09:50 Wound Center [...] 35.5 30.5 Right Ankle (cm) 24.5 18 - Nurse 2 - General Ulcer CM Notes Start: 05/16/23 09:08 Freq: Status: Active Protocol: Activity Type Activity Date Activity User E-sign Co-sign Detail Recorded Client Recorded Date Recorded By Document 05/16/23 09:25 Desktop 05/16/23 09:30 GM Document 05/23/23 10:16 Desktop 05/23/23 10:21 GM 05/16/23 05/23/23 09:25 10:16 Wound Center Nurse [...] 1 week. This note was generated with Server Densityation software. It may contain incorrectwords, spelling, and punctuation that were not noted in checking the note beforesigning. 05/23/23 1023 <Electronically signed by Chilango Laughlin MD> Cosigner Signature (if applicable): CC: ~ Signed [facility] Work Phone: 1(164) 584-202111-02-2023 Progress note Author Chilango Laughlin [facility] May 16, 2023 9:37am Note Date/Time May 16, 2023 9 :38am [facility] [address] [place] [address] Progress Note - Wound Care 05/16/2330 MR#: [id number] Acct: [id number] Name: JULIANA MERIDA Rep #:[id number] : 1960 62 From: Chilango joy MD [...] 09:08 05/16/23 09:08 Charges/Coding Procedures Integumentary 111xxx-113xx: 70721 Carla subq tissue 20 sq cm/< Physical [...] 05/16/23 09:08 Laptop 05/16/23 09:15 05/16/23 09:08 - Today's Visit Information Type of service Follow-up Visit (Physician/LOGGING SUPERVISOR ) Arrival Mode Wheelchair Patient Identification Verified [...] 1 week. This note was generated with NICO dictation software. It may contain incorrectwords, spelling, and punctuation that were not noted in checking the note beforesigning. 05/16/23 0937 <Electronically signed by Chilango Laughlin MD> Cosigner Signature (if applicable): CC: ~ Signed [facility] Work Phone: [phone]) [phone] Progress note Author Chilango Laughlin [facility] May 02, 2023 10:11am Note Date/Time May 02, 2023 1 0:11am [facility] [address] [place] [address] Progress Note - Wound Care 05/02/23 1007 MR#: [id number] Acct: [id number] Name: JULIANA MERIDA Rep #:[id number] : 1960 62 From: Chilango joy MD [...] Method Room Air Charges/Coding Procedures Integumentary 111xxx-113xx: 45796 Carla subq tissue 20 sq cm/< Physical [...] Start: 04/18/23 09:24 Freq: Status: Active Protocol: RUY.LOWRAHEEMT Activity Type Activity Date Activity User E-sign Co-sign Detail Recorded Client Recorded Date Recorded By Document 04/18/23 09:24 RB Desktop 04/18/23 09:26 RB Document 04/25/23 08:57 BMF Desktop 04/25/23 09:02 BMF Document 05/02/23 09:16 BMF Desktop 05/02/23 09:21 BMF 04/18/23 04/25/23 05/02/23 09:24 08:57 09:16 - Today's Visit Information Type of service Follow-up Visit Follow-up Visit Follow-up Visit (Physician/LOGGING SUPERVISOR (Physician/LOGGING SUPERVISOR (Physician/LOGGING SUPERVISOR ) ) ) Arrival Mode Wheelchair Wheelchair [...] (1-33%) None Present (0 %) -Granulation Quality [place] Red -Slough/Fibrin Yes Yes Yes -Necrosis Amt [...] GM Document 04/25/23 09:32 Desktop 04/25/23 09:36 GM Document 05/02/23 09:31 Laptop 05/02/23 09:33 04/18/23 [...] 09:50 Laptop 04/18/23 09:50 Document 04/25/23 09:41 [facility] Desktop 04/25/23 09:42 [facility] Document 05/02/23 09:44 [facility] Desktop 05/02/23 09:45 [facility] 04/18/23 04/25/23 05/02/23 09:50 09:41 09:44 [...] Stable Ambulatory Status Wheelchair Wheelchair Wheelchair Transportation [facility] [employer] [place] Accompanied [place] Medication Reconcilliation completed & Yes provided to patient/care provider Clinical Summary of Care Provided Yes Facility Type Commercial Loan Officer Care Nursing Home Care Facility Facility Assessment/Plan Assessment/Plan (1) Chronic [...] 2 weeks. This note was generated with NICO dictation software. It may contain incorrectwords, spelling, and punctuation that were not noted in checking the note beforesigning. 05/02/23 1011 <Electronically signed by Chilango Laughlin MD> Cosigner Signature (if applicable): CC: ~ Signed [facility] Work Phone: [phone]) 904-196410-12-2023 Progress note Author Chilango Laughlin [facility] April 25, 2023 1:18pm Note Date/Time April 25, 2023 1 :18pm [facility] [address] [place] [address] Progress Note - Wound Care 04/25/23 1317 MR#: [id number] Acct: [id number] Name: JULIANA MERIDA YANELI Rep #:[id number] : 1960 62 From: Chilango joy MD [...] Method Room Air Charges/Coding Procedures Integumentary 111xxx-113xx: 95478 Carla subq tissue 20 sq cm/< Physical [...] Start: 04/18/23 09:24 Freq: Status: Active Protocol: RUY.ALINE Activity Type Activity Date Activity User E-sign Co-sign Detail Recorded Client Recorded Date Recorded By Document 04/18/23 09:24 Desktop 04/18/23 09:26 RB Document 04/25/23 08:57 [facility] Desktop 04/25/23 09:02 [facility] 04/18/23 04/25/23 09:24 08:57 - Today's Visit Information Type of service Follow-up Visit Follow-up Visit (Physician/LOGGING SUPERVISOR (Physician/LOGGING SUPERVISOR ) ) Arrival Mode Wheelchair Wheelchair Transfer [...] Desktop 04/18/23 09:26 RB Document 04/25/23 08:57 [facility] Desktop 04/25/23 09:02 BMF 04/18/23 04/25/23 [...] Amt Medium (34-66%) Small (1-33%) -Granulation Quality [place] Red -Slough/Fibrin Yes Yes -Necrosis Amt Medium [...] Desktop 04/18/23 09:43 GM Document 04/25/23 09:32 [employer] Desktop 04/25/23 09:36 GM 04/18/23 04/25/23 09:38 [...] 09:50 Laptop 04/18/23 09:50 Document 04/25/23 09:41 [facility] Desktop 04/25/23 09:42 [facility] 04/18/23 04/25/23 09:50 09:41 Wound Care [...] Wheelchair Wheelchair Transportation Private Auto Accompanied [place] Medication Reconcilliation completed & Yes provided to patient/care provider Clinical Summary of Care Provided Yes Facility Type Nursing Home Care Facility Assessment/Plan Assessment/Plan (1) Chronic ulcer [...] 1 week. This note was generated with Server Densityation software. It may contain incorrectwords, spelling, and punctuation that were not noted in checking the note beforesigning. 04/25/23 6398 <Electronically signed by Chilango Laughlin MD> Cosigner Signature (if applicable): CC: ~ Signed [facility] Work Phone: 1([phone]) 298-242010-05-2023 Progress note Author Chilango Laughlin [facility] April 18, 2023 9:57am Note Date/Time April 18, 2023 9: 57am [facility] [address] [place] [address] Progress Note - Wound Care 04/18/23 0955 MR#: [id number] Acct: [id number] Name: JULIANA MERIDA Rep #:[id number] : 1960 62 From: Chilango joy MD [...] 09:24 04/18/23 09:24 Charges/Coding Procedures Integumentary 111xxx-113xx: 81362 Carla subq tissue 20 sq cm/< Physical [...] Document 04/18/23 09:24 Desktop 04/18/23 09:26 RB 04/18/23 09:24 WC - Today's Visit Information Type of service Follow-up Visit (Physician/LOGGING SUPERVISOR ) Arrival Mode Wheelchair Transfer Assistance None [...] Attached -Granulation Amt Medium (34-66%) -Granulation Quality [place] -Slough/Fibrin Yes -Necrosis Amt Medium (34-66%) -Necrotic [...] Calf (cm) 36.4 Right Ankle (cm) 22.7 - Nurse 2 - General Ulcer CM [...] Status Wheelchair Transportation Private Auto Accompanied [place] Medication Reconcilliation completed & Yes provided [...] 1 week. This note was generated with Server Densityation software. It may contain incorrectwords, spelling, and punctuation that were not noted in checking the note beforesigning. 04/18/23 0957 <Electronically signed by Chilango Laughlin MD> Cosigner Signature (if applicable): CC: ~ Signed [facility] Work Phone: 1(240) 297-601809-12-2023 Miscellaneous Notes* Telephone Encounter - Layton Scales InspectorLori - 03/26/2023 9:44 AM EDT Lucas Sanchez) APPROVED [id number] 03.26.23 - 03.26.24 for 2 visits [facility] Medicare/Portal Layton Scales Inspector [facility] Miscellaneous Notes* Telephone Encounter - Gianna Grullon - 03/13/2023 2:05 PM EDT Pt was registered but upon check in system was giving error for Medicare AB- tried to run several times and error ; associate tried as well ; found that pt had possible new insurance in November through [facility]. Pt paperwork on her info sheet was same that we had scanned in August. Called [facility] they were stumped as well, sent me to the business risk analyst who is reviewing it. She isto call me back. Pending documented in [facility] [facility]23 Miscellaneous Notes* Telephone Encounter - Funmilayo Pope MD - 03/06/2023 3:41 PM EDT ----- Message from Haylee Jules RN sent at 03/06/2023 9:31 AM EDT ----- Please enter new CAM order for Prolia. Current order is >1 yr old. Pt's appt Tuesday 03/13. Thanks Haylee [facility] Progress note Author Chilango Laughlin [facility] February 07, 2023 11:52am Note Date/Time February 07, 2023 11:3 5am [facility] [address] [place] [address] Progress Note - Wound Care 02/07/23 1135 MR#: [id number] Acct: [id number] Name: JULIANA MERIDA Rep #:[id number] : 1960 62 From: Chilango joy MD [...] Method Room Air Charges/Coding Procedures Integumentary 150xxx-152xx: 70951 Skin sub graft trnk/arm/leg Physical Exam Const [...] Recorded Date Recorded By Document 01/17/23 09:59 [id number] 01/17/23 10:00 JF Document 01/24/23 09:02 KW [id number] 01/24/23 09:20 KW Document 01/31/23 08:45 RB [id number] 01/31/23 08:51 RB Document 02/07/23 09:16 RB [id number] 02/07/23 09:17 RB 01/17/23 01/24/23 01/31/23 09:59 09:02 08:45 - Today's Visit Information Type of service Follow-up Visit Follow-up Visit Follow-up Visit (Physician/LOGGING SUPERVISOR (Physician/LOGGING SUPERVISOR (Physician/LOGGING SUPERVISOR ) ) ) Arrival Mode Wheelchair Wheelchair [...] Visit Information Type of service Follow-up Visit (Physician/LOGGING SUPERVISOR ) Arrival Mode Wheelchair Transfer Assistance None [...] Date Recorded By Document 01/17/23 09:59 JF [id number] 01/17/23 10:00 JF Document 01/24/23 09:02 KW [id number] 01/24/23 09:20 KW Document 01/31/23 08:45 RB [id number] 01/31/23 08:51 RB Document 02/07/23 09:16 RB [id number] 02/07/23 09:17 RB 01/17/23 01/24/23 01/31/23 09:59 [...] Small (1-33%) Medium (34-66%) -Granulation Quality [place] -Slough/Fibrin Yes -Necrosis Amt Medium (34-66%) Small [...] Date Recorded By Document 01/17/23 10:11 MW [id number] 01/17/23 10:20 MW Document 01/24/23 09:52 MW [id number] 01/24/23 09:54 MW Document 01/31/23 09:28 MW [id number] 01/31/23 09:36 MW Document 02/07/23 10:00 MW [id number] 02/07/23 10:08 MW 01/17/23 01/24/23 01/31/23 10:11 [...] Date 11/13/27 11/13/27 12/14/27 -Product Lot Number [id number] 002 001 -Percent Used 100 100 100 -Lot number of Saline Used [id number] -Bleeding Controlled with Pressure Pressure Pressure -Treatment [...] Disc -Expiration Date 11/13/27 -Product Lot Number [id number] -Percent Used 100 -Lot number of Saline Used [id number] -Bleeding Controlled with Pressure -Treatment Response Procedure [...] Date Recorded By Document 01/17/23 12:06 JANICE [id number] 01/17/23 12:07 JF Document 01/24/23 10:01 JF [id number] 01/24/23 10:02 JF Document 01/31/23 09:49 RB [id number] 01/31/23 09:50 RB Document 02/07/23 10:22 RB [id number] 02/07/23 10:23 RB 01/17/23 01/24/23 01/31/23 12:06 [...] Stable Ambulatory Status Wheelchair Wheelchair Wheelchair Transportation Apps [employer] Medication Reconcilliation completed & Yes Yes No [...] 2 weeks. This note was generated with NICO dictation software. It may contain incorrectwords, spelling, and punctuation that were not noted in checking the note beforesigning. 02/07/23 1152 <Electronically signed by Chilango Laughlin MD> Cosigner Signature (if applicable): CC: ~ Signed [facility] Work Phone: 1(328) 523-522307-20-2023 Progress note Author Chilango Laughlin [facility] January 31, 2023 10:02am Note Date/Time January 31, 2023 10:[address] [facility] [address] [place] [address] Progress Note - Wound Care 01/31/23 1000 MR#: [id number] Acct: [id number] Name: JULIANA MERIDA YANELI Rep #:[id number] : 1960 62 From: Chilango joy MD [...] L 80 18 103/50 L Room Air 07/20/23 08:45 01/31/23 08:45 01/31/23 08:45 01/31/23 08:45 01/24/23 09:02 Oxygen Delivery Method Room Air Charges/Coding Procedures Integumentary 150xxx-152xx: 31336 Skin sub graft trnk/arm/leg Physical Exam Const [...] Recorded Date Recorded By Document 01/17/23 09:59 [id number] 01/17/23 10:00 Document 01/24/23 09:02 KW [id number] 01/24/23 09:20 KW Document 01/31/23 08:45 RB [id number] 01/31/23 08:51 RB 01/17/23 01/24/23 01/31/23 09:59 09:02 08:45 - Today's Visit Information Type of service Follow-up Visit Follow-up Visit Follow-up Visit (Physician/LOGGING SUPERVISOR (Physician/LOGGING SUPERVISOR (Physician/LOGGING SUPERVISOR ) ) ) Arrival Mode Wheelchair Wheelchair [...] Date Recorded By Document 01/17/23 09:59 JF [id number] 01/17/23 10:00 JF Document 01/24/23 09:02 KW [id number] 01/24/23 09:20 KW Document 01/31/23 08:45 RB [id number] 01/31/23 08:51 RB 07/01/0401/24/23 01/31/23 09:59 09:02 08:45 Wound Center Nurse [...] Small (1-33%) Medium (34-66%) -Granulation Quality [place] -Slough/Fibrin Yes -Necrosis Amt Medium (34-66%) Small [...] Date Recorded By Document 01/17/23 10:11 MW [id number] 01/17/23 10:20 MW Document 01/24/23 09:52 MW [id number] 01/24/23 09:54 MW Document 01/31/23 09:28 MW [id number] 01/31/23 09:36 MW 01/17/23 01/24/23 01/31/23 10:11 [...] Date 11/13/27 11/13/27 12/14/27 -Product Lot Number [id number] 002 001 -Percent Used 100 100 100 -Lot number of Saline Used [id number] -Bleeding Controlled with Pressure Pressure Pressure -Treatment [...] Recorded Date Recorded By Document 01/17/23 12:06 [id number] 01/17/23 12:07 JF Document 01/24/23 10:01 JF [id number] 01/24/23 10:02 JF Document 01/31/23 09:49 RB [id number] 01/31/23 09:50 RB 01/17/23 01/24/23 01/31/23 12:06 [...] Stable Ambulatory Status Wheelchair Wheelchair Wheelchair Transportation Apps [employer] Medication Reconcilliation completed & Yes Yes No [...] 1 week. This note was generated with NICO dictation software. It may contain incorrectwords, spelling, and punctuation that were not noted in checking the note beforesigning. 01/31/23 1002 <Electronically signed by Chilango Laughlin MD> Cosigner Signature (if applicable): CC: ~ Signed [facility] Work Phone: [phone]) 531-832707-13-2023 Progress note Author Chilango Laughlin [facility] January 24, 2023 11:28am Note Date/Time January 24, 2023 11:[address] [facility] [address] [place] [address] Progress Note - Wound Care 01/24/23 1125 MR#: [id number] Acct: [id number] Name: JULIANA MERIDA YANELI Rep #:[id number] : 1960 62 From: Chilango joy MD [...] Method Room Air Charges/Coding Procedures Integumentary 150xxx-152xx: 01158 Skin sub graft trnk/arm/leg Physical Exam Const [...] Start: 01/17/23 09:50 Freq: Status: Active Protocol: RUY.ALINE Activity Type Activity Date Activity User E-sign Co-sign Detail Recorded Client Recorded Date Recorded By Document 01/17/23 09:59 [id number] 01/17/23 10:00 Document 01/24/23 09:02 [id number] 01/24/23 09:20 KW 01/17/23 01/24/23 09:59 09:02 - Today's Visit Information Type of service Follow-up Visit Follow-up Visit (Physician/LOGGING SUPERVISOR (Physician/LOGGING SUPERVISOR ) ) Arrival Mode Wheelchair Wheelchair Patient [...] Recorded Date Recorded By Document 01/17/23 09:59 [id number] 01/17/23 10:00 Document 01/24/23 09:02 KW [id number] 01/24/23 09:20 KW 01/17/23 01/24/23 09:59 09:02 [...] Medium (34-66%) Small (1-33%) -Granulation Quality [place] -Slough/Fibrin Yes -Necrosis Amt Medium (34-66%) Small [...] Date Recorded By Document 01/17/23 10:11 MW [id number] 01/17/23 10:20 MW Document 01/24/23 09:52 MW [id number] 01/24/23 09:54 MW 01/17/23 01/24/23 10:11 09:52 [...] -Expiration Date 11/13/27 11/13/27 -Product Lot Number [id number] 002 -Percent Used 100 100 -Lot number of Saline Used [id number] -Bleeding Controlled with Pressure Pressure -Treatment Response [...] Recorded Date Recorded By Document 01/17/23 12:06 [id number] 01/17/23 12:07 Document 01/24/23 10:01 [id number] 01/24/23 10:02 01/17/23 01/24/23 12:06 10:01 Wound [...] Stable Stable Ambulatory Status Wheelchair Wheelchair Transportation Apps [employer] Medication Reconcilliation completed & Yes Yes provided [...] 1 week. This note was generated with Server Densityation software. It may contain incorrectwords, spelling, and punctuation that were not noted in checking the note beforesigning. 01/24/23 1128 <Electronically signed by Chilango Laughlin MD> Cosigner Signature (if applicable): CC: ~ Signed [facility] Work Phone: [phone]) [phone] Progress note Author therese Laughlin [facility] January 17, 2023 12:32pm Note Date/Time January 17, 2023 12:[address] [facility] [address] [place] [address] Progress Note - Wound Care 01/17/23 1226 MR#: [id number] Acct: [id number] Name: JULIANA MERIDA YANELI Rep #:[id number] : 1960 62 From: Chilango joy MD [...] 09:59 01/17/23 09:59 Charges/Coding Procedures Integumentary 150xxx-152xx: 39325 Skin sub graft trnk/arm/leg Physical Exam Const [...] Date Recorded By Document 01/17/23 09:59 JANICE [id number] 01/17/23 10:00 JANICE 01/17/23 09:59 RYU - Today's Visit Information Type of service Follow-up Visit (Physician/LOGGING SUPERVISOR ) Arrival Mode Wheelchair Patient Identification Verified [...] Date Recorded By Document 01/17/23 09:59 JANICE [id number] 01/17/23 10:00 JANICE 01/17/23 09:59 Wound Center [...] Date Recorded By Document 01/17/23 10:11 MW [id number] 01/17/23 10:20 MW 01/17/23 10:11 Wound Center [...] Disc -Expiration Date 11/13/27 -Product Lot Number [id number] -Percent Used 100 -Bleeding Controlled with Pressure -Treatment Response Procedure Tolerated Well -Offloading No -Debridement - Subq, 1st 20sq cm No -Apply Skin Sub - 1st 25 sq cm - Legs 1 -Epifix 18mm Disc 3 Pain Scale: 0-10 Numeric Is Patient Pain Free? Yes RUY - Nurse 3 - General Ulcer D/C NN Start: 01/17/23 09:50 Freq: Status: Active Protocol: Activity Type Activity Date Activity User E-sign Co-sign Detail Recorded Client Recorded Date Recorded By Document 01/17/23 12:06 JANICE [id number] 01/17/23 12:07 JF 01/17/23 12:06 Wound Care Center Nurse 3 [...] 1 week. This note was generated with NICO dictation software. It may contain incorrectwords, spelling, and punctuation that were not noted in checking the note beforesigning. 01/17/23 1232 <Electronically signed by Chilango Laughlin MD> Cosigner Signature (if applicable): CC: ~ Signed [facility] Work Phone: [phone]) 376-980306-30-2023 Progress note Author Beata Pardo [facility] January 11, 2023 5:30pm Note Date/Time January 11, 2023 5:[address] [facility] [address] [place] [address] Progress Note - Wound Care 01/11/23 1723 MR#: [id number] Acct: [id number] Name: JULIANA MERIDA Rep #:[id number] : 1960 62 From: Beata HILLIARD PCP: [...] Method Room Air Charges/Coding Procedures Integumentary 150xxx-152xx: 70523 Skin sub graft trnk/arm/leg Physical Exam Const [...] Start: 12/13/22 09:39 Freq: Status: Active Protocol: RUYPwintyBRIANDA Activity Type Activity Date Activity User E-sign Co-sign Detail Recorded Client Recorded Date Recorded By Document 12/13/22 09:39 [facility] [id number] 12/13/22 09:42 [facility] Document 12/20/22 09:48 [facility] [id number] 12/20/22 09:59 [facility] Document 01/03/23 09:05 [facility] [id number] 01/03/23 09:16 [facility] Document 01/11/23 13:25 PL [id number] 01/11/23 13:35 PL 12/13/22 12/20/22 01/03/23 09:39 09:48 09:05 - Today's Visit Information Type of service Follow-up Visit Follow-up Visit Follow-up Visit (Physician/LOGGING SUPERVISOR (Physician/LOGGING SUPERVISOR (Physician/LOGGING SUPERVISOR ) ) ) Arrival Mode Wheelchair Wheelchair [...] WILL TAKE PAIN MEDS UPON RETURN TO [facility] 01/11/23 13:25 WC - Today's Visit Information Type of service Follow-up Visit (Physician/LOGGING SUPERVISOR ) Arrival Mode Wheelchair Transfer Assistance None [...] Recorded Date Recorded By Document 12/13/22 09:39 [facility] [id number] 12/13/22 09:42 BM Document 12/20/22 09:48 BM [id number] 12/20/22 09:59 BM Document 01/03/23 09:05 BM [id number] 01/03/23 09:16 BMF 12/13/22 12/20/22 01/03/23 09:39 [...] Date Recorded By Document 12/13/22 09:53 MW [id number] 12/13/22 10:02 MW Document 12/20/22 10:48 MW [id number] 12/20/22 10:58 MW Document 01/03/23 10:08 MW [id number] 01/03/23 10:17 MW Document 01/11/23 15:55 PL [id number] 01/11/23 15:56 PL 12/13/22 12/20/22 01/03/23 09:53 [...] Date 09/13/27 10/14/27 10/14/27 -Product Lot Number [id number] 001 006 -Percent Used 100 100 100 -Lot number of Saline Used [id number] -Bleeding Controlled with Pressure Pressure Pressure -Treatment [...] Disc -Expiration Date 10/14/27 -Product Lot Number [id number] -Percent Used 100 -Lot number of [...] Date Recorded By Document 12/13/22 10:17 DL [id number] 12/13/22 10:18 DL Document 12/20/22 11:45 DL [id number] 12/20/22 11:46 DL Document 01/03/23 10:33 [facility] [id number] 01/03/23 10:34 BMF Document 01/11/23 14:04 RB [id number] 01/11/23 14:05 RB 12/13/22 12/20/22 01/03/23 10:17 [...] Clinical Summary of Care Provided Facility Type Nursing Home Care Nursing Home Care Nursing Home Care Facility Facility Facility Orders Sent Yes [...] as scheduled. This note was generated with NICO dictation software. It may contain incorrectwords, spelling, and punctuation that were not noted in checking the note beforesigning. 01/11/23 1730 <Electronically signed by Beata HILLIARD> Cosigner Signature (if applicable): CC: ~ Signed [facility] Work Phone: [phone] Progress note Author Chilango Laughlin [facility] January 03, 2023 1:45pm Note Date/Time January 03, 2023 10:4 3am [facility] [address] [place] [address] Progress Note - Wound Care 01/03/23 1037 MR#: [id number] Acct: [id number] Name: JULIANA MERIDA YANELI Rep #:[id number] : 1960 62 From: Chilango joy MD [...] Method Room Air Charges/Coding Procedures Integumentary 150xxx-152xx: 13533 Skin sub graft trnk/arm/leg Physical Exam Const [...] Recorded Date Recorded By Document 12/13/22 09:39 [facility] [id number] 12/13/22 09:42 BM Document 12/20/22 09:48 [facility] [id number] 12/20/22 09:59 BM Document 01/03/23 09:05 [facility] [id number] 01/03/23 09:16 [facility] 12/13/22 12/20/22 01/03/23 09:39 09:48 09:05 - Today's Visit Information Type of service Follow-up Visit Follow-up Visit Follow-up Visit (Physician/LOGGING SUPERVISOR (Physician/LOGGING SUPERVISOR (Physician/LOGGING SUPERVISOR ) ) ) Arrival Mode Wheelchair Wheelchair [...] WILL TAKE PAIN MEDS UPON RETURN TO [facility] WC - Nurse 1 - General Ulcer Measurement Start: 12/13/22 09:39 Freq: Status: Active Protocol: Activity Type Activity Date Activity User E-sign Co-sign Detail Recorded Client Recorded Date Recorded By Document 12/13/22 09:39 [facility] [id number] 12/13/22 09:42 [facility] Document 12/20/22 09:48 [facility] [id number] 12/20/22 09:59 [facility] Document 01/03/23 09:05 [facility] [id number] 01/03/23 09:16 [facility] 12/13/22 12/20/22 01/03/23 09:39 09:48 09:05 [...] Date Recorded By Document 12/13/22 09:53 MW [id number] 12/13/22 10:02 MW Document 12/20/22 10:48 MW [id number] 12/20/22 10:58 MW Document 01/03/23 10:08 MW [id number] 01/03/23 10:17 MW 12/13/22 12/20/22 01/03/23 09:53 [...] Date 09/13/27 10/14/27 10/14/27 -Product Lot Number [id number] 001 006 -Percent Used 100 100 100 -Lot number of Saline Used [id number] -Bleeding Controlled with Pressure Pressure Pressure -Treatment [...] Date Recorded By Document 12/13/22 10:17 DL [id number] 12/13/22 10:18 DL Document 12/20/22 11:45 DL [id number] 12/20/22 11:46 DL Document 01/03/23 10:33 [facility] [id number] 01/03/23 10:34 BMF 12/13/22 12/20/22 01/03/23 10:17 11:45 10:33 Wound [...] Private Auto Private Auto ECF Facility Type Commercial Loan Officer Care Nursing Home Care Nursing Home Care Facility Facility Facility Orders Sent Yes [...] with me. This note was generated with NICO dictation software. It may contain incorrectwords, spelling, and punctuation that were not noted in checking the note beforesigning. 01/03/23 3595 <Electronically signed by Chilango Laughlin MD> Cosigner Signature (if applicable): CC: ~ Signed [facility] Work Phone: [phone] 210-829606-08-2023 Progress note Author Chilango Laughlin [facility] December 20, 2022 12:33pm Note Date/Time December 20, 2022 12:[address] [facility] [address] [place] [id number] Progress Note - Wound Care 12/20/22 1223 MR#: [id number] Acct: [id number] Name: JULIANA MERIDA Rep #:[id number] : 1960 62 From: Chilango joy MD [...] Method Room Air Charges/Coding Procedures Integumentary 150xxx-152xx: 56671 Skin sub graft trnk/arm/leg Physical Exam Const [...] Start: 12/13/22 09:39 Freq: Status: Active Protocol: RUYPwintyBRIANDA Activity Type Activity Date Activity User E-sign Co-sign Detail Recorded Client Recorded Date Recorded By Document 12/13/22 09:39 [facility] [id number] 12/13/22 09:42 [facility] Document 12/20/22 09:48 [facility] [id number] 12/20/22 09:59 [facility] 12/13/22 12/20/22 09:39 09:48 - Today's Visit Information Type of service Follow-up Visit Follow-up Visit (Physician/LOGGING SUPERVISOR (Physician/LOGGING SUPERVISOR ) ) Arrival Mode Wheelchair Wheelchair Transfer [...] WILL TAKE PAIN MEDS UPON RETURN TO [facility] WC - Nurse 1 - General Ulcer Measurement Start: 12/13/22 09:39 Freq: Status: Active Protocol: Activity Type Activity Date Activity User E-sign Co-sign Detail Recorded Client Recorded Date Recorded By Document 12/13/22 09:39 [facility] [id number] 12/13/22 09:42 [facility] Document 12/20/22 09:48 [facility] [id number] 12/20/22 09:59 [facility] 12/13/22 12/20/22 09:39 09:48 Wound Center [...] Date Recorded By Document 12/13/22 09:53 MW [id number] 12/13/22 10:02 MW Document 12/20/22 10:48 MW [id number] 12/20/22 10:58 MW 12/13/22 12/20/22 09:53 10:48 [...] -Expiration Date 09/13/27 10/14/27 -Product Lot Number [id number] 001 -Percent Used 100 100 -Lot number of Saline Used [id number] -Bleeding Controlled with Pressure Pressure -Treatment Response [...] Date Recorded By Document 12/13/22 10:17 DL [id number] 12/13/22 10:18 DL Document 12/20/22 11:45 DL [id number] 12/20/22 11:46 DL 12/13/22 12/20/22 10:17 11:45 [...] Transportation Private Auto Private Auto Facility Type Commercial Loan Officer Care Commercial Loan Officer Care Facility Facility Orders Sent Yes Yes [...] if needed. This note was generated with Dragon dictation software. It may contain incorrectwords, spelling, and punctuation that were not noted in checking the note beforesigning. 12/20/22 1233 <Electronically signed by Chilango Laughlin MD> Cosigner Signature (if applicable): CC: ~ Signed [facility] Work Phone: [phone] Progress note Author Chilango Laughlin [facility] December 13, 2022 10:30am Note Date/Time December 13, 2022 10:[address] [facility] [address] [place] [address] Progress Note - Wound Care 12/13/22 1017 MR#: [id number] Acct: [id number] Name: JULIANA MERIDA Rep #:[id number] : 1960 62 From: Chilango joy MD [...] 09:39 12/13/22 09:39 Charges/Coding Procedures Integumentary 150xxx-152xx: 00651 Skin sub graft trnk/arm/leg Physical Exam Const [...] Recorded Date Recorded By Document 12/13/22 09:39 [facility] [id number] 12/13/22 09:42 [facility] 12/13/22 09:39 - Today's Visit Information Type of service Follow-up Visit (Physician/LOGGING SUPERVISOR ) Arrival Mode Wheelchair Transfer Assistance None [...] Recorded Date Recorded By Document 12/13/22 09:39 [facility] [id number] 12/13/22 09:42 [facility] 12/13/22 09:39 Wound Center Nurse 1 [...] Calf (cm) 38.1 Right Ankle (cm) 28.5 - Nurse 2 - General Ulcer CM Notes Start: 12/13/22 09:39 Freq: Status: Active Protocol: Activity Type Activity Date Activity User E-sign Co-sign Detail Recorded Client Recorded Date Recorded By Document 12/13/22 09:53 [id number] 12/13/22 10:02 MW 12/13/22 09:53 Wound Center [...] Disc -Expiration Date 09/13/27 -Product Lot Number [id number] -Percent Used 100 -Lot number of Saline Used [id number] -Bleeding Controlled with Pressure -Treatment Response Procedure [...] if needed. This note was generated with Server Densityation software. It may contain incorrectwords, spelling, and punctuation that were not noted in checking the note beforesigning. 12/13/22 1030 <Electronically signed by Chilango Laughlin MD> Cosigner Signature (if applicable): CC: ~ Signed [facility] Work Phone: [phone]) [phone] Laughlin [facility] December 06, 2022 10:40am Note Date/Time December 06, 2022 10:[address] [facility] [address] [place] [address] Progress Note - Wound Care 12/06/22 1038 MR#: [id number] Acct: [id number] Name: JULIANA MERIDA Rep #:[id number] : 1960 62 From: Chilango joy MD [...] anaerobic bacteria isolated. Charges/Coding Procedures Integumentary 150xxx-152xx: 56595 Skin sub graft trnk/arm/leg Physical Exam Const [...] Recorded Date Recorded By Document 11/22/22 08:59 [id number] 11/22/22 09:12 Document 11/29/22 09:28 [facility] [id number] 11/29/22 09:43 [facility] Document 12/06/22 09:36 DL [id number] 12/06/22 09:46 DL 11/22/22 11/29/22 12/06/22 08:59 09:28 09:36 - Today's Visit Information Type of service Initial Visit Follow-up Visit Follow-up Visit (Physician/LOGGING SUPERVISOR (Physician/LOGGING SUPERVISOR ) ) Arrival Mode Wheelchair Wheelchair Wheelchair [...] & Hygeine No Communication Assessment Preferred language Nigerien Able to Read Yes Able to Write [...] in Ability to Perform Denies Any Declines Culture/Samaritan/Bench Carpenter Cultural/Samaritan Needs that may affect No Treatment Plan Would you allow our hospital mop handle assembler to No meet you for the purpose of spiritual/ emotional support? Bench Carpenter to contact place of pentecostalism No Teaching: Wound Center Discharge Instructions -Person Taught Patient Dressing Your Wound -Person Taught Patient *Welcome to the Wound Center -Person Taught Patient WC - Nurse 1 - General Ulcer Measurement Start: 11/22/22 08:59 Freq: Status: Active Protocol: Activity Type Activity Date Activity User E-sign Co-sign Detail Recorded Client Recorded Date Recorded By Document 11/22/22 08:59 DL [id number] 11/22/22 09:12 DL Document 11/29/22 09:28 [facility] [id number] 11/29/22 09:43 [facility] Document 12/06/22 09:36 DL [id number] 12/06/22 09:46 DL 11/22/22 11/29/22 12/06/22 08:59 [...] (34-66%) Large (67-100%) -Granulation Quality Red Red Pale,[place] -Slough/Fibrin Yes -Necrosis Amt Small (1-33%) Medium [...] Recorded Date Recorded By Document 11/22/22 09:38 [id number] 11/22/22 09:48 MW Document 11/29/22 09:52 [id number] 11/29/22 10:00 Document 12/06/22 10:26 MW [id number] 12/06/22 10:37 MW 11/22/22 11/29/22 12/06/22 09:38 [...] -Expiration Date 06/14/27 08/15/27 -Product Lot Number [id number] -Percent Used 100 100 -Lot number of Saline Used [id number] -Bleeding Controlled with Pressure Pressure Pressure -Treatment [...] Recorded Date Recorded By Document 11/22/22 10:16 [id number] 11/22/22 10:17 RB Document 11/29/22 10:09 [facility] [id number] 11/29/22 10:10 [facility] 11/22/22 11/29/22 10:16 10:09 Wound Care [...] Summary of Care Provided Yes Facility Type Commercial Loan Officer Care Facility Assessment/Plan Assessment/Plan (1) Chronic ulcer [...] if needed. This note was generated with NICO dictation software. It may contain incorrectwords, spelling, and punctuation that were not noted in checking the note beforesigning. 12/06/22 1040 <Electronically signed by Chilango Laughlin MD> Cosigner Signature (if applicable): CC: ~ Signed [facility] Work Phone: 1(718) 798-615805-18-[address] Laughlin [facility] November 29, 2022 1:11pm Note Date/Time November 29, 2022 1:11p [facility] [address] [place] [address] Progress Note - Wound Care 11/29/22 1302 MR#: [id number] Acct: [id number] Name: JULIANA MERIDA Rep #:[id number] : 1960 62 From: Chilango joy MD [...] anaerobic bacteria isolated. Charges/Coding Procedures Integumentary 150xxx-152xx: 85183 Skin sub graft trnk/arm/leg Physical Exam Const [...] Start: 11/22/22 08:59 Freq: Status: Active Protocol: RUY.LOWBRIANDA Activity Type Activity Date Activity User E-sign Co-sign Detail Recorded Client Recorded Date Recorded By Document 11/22/22 08:59 DL [id number] 11/22/22 09:12 DL Document 11/29/22 09:28 BM [id number] 11/29/22 09:43 BMF 11/22/22 11/29/22 08:59 09:28 WC - Today's Visit Information Type of service Initial Visit Follow-up Visit (Physician/LOGGING SUPERVISOR ) Arrival Mode Wheelchair Wheelchair Transfer Assistance [...] & Hygeine No Communication Assessment Preferred language Nigerien Able to Read Yes Able to Write [...] in Ability to Perform Denies Any Declines Culture/Samaritan/Bench Carpenter Cultural/Samaritan Needs that may affect No Treatment Plan Would you allow our hospital mop handle assembler to No meet you for the purpose of spiritual/ emotional support? Bench Carpenter to contact place of pentecostalism No Teaching: Wound Center Discharge Instructions -Person Taught Patient Dressing Your Wound -Person Taught Patient *Welcome to the Wound Center -Person Taught Patient WC - Nurse 1 - General Ulcer Measurement Start: 11/22/22 08:59 Freq: Status: Active Protocol: Activity Type Activity Date Activity User E-sign Co-sign Detail Recorded Client Recorded Date Recorded By Document 11/22/22 08:59 DL [id number] 11/22/22 09:12 DL Document 11/29/22 09:28 [facility] [id number] 11/29/22 09:43 BMF 11/22/22 11/29/22 08:59 09:28 Wound Center Nurse [...] Date Recorded By Document 11/22/22 09:38 MW [id number] 11/22/22 09:48 MW Document 11/29/22 09:52 [id number] 11/29/22 10:00 11/22/22 11/29/22 09:38 09:52 Wound [...] Epifix -Expiration Date 06/14/27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 History insulin glargine U-300 conc 300 100 unit subcut QAM Unknown History unit/mL (1.5 mL) subcutaneous pen (Toujeo SoloStar U-300 Insulin) insulin glargine U-300 conc 300 90 unit subcut QHS 04/08 Unknown History unit/mL (3 mL) subcutaneous pen (Toujeo Max U-300 SoloStar) insulin lispro 100 unit/mL 50 unit subcut DAILY Unknown History subcutaneous pen (Humalog KwikPen (U-100) Insulin) insulin lispro 100 unit/mL 54 unit subcut DINNER 11/20 Unknown History subcutaneous pen (Humalog KwikPen (U-100) Insulin) magnesium hydroxide 400 mg/5 mL 15 ml PO BID PRN const ipation 11/20/24 Unknown History oral suspension (Milk of Magnesia) tirzepatide 7.5 mg/0.5 mL 7.5 mg subcut FR 11/20/24 History subcutaneous pen injector (Loraro) Held on 01/20/25. Instructions: ON HOLD FOR EGD 01/21/25 - LAST DOSE 01/08/25 atorvastatin 40 mg tablet 40 mg PO DAILY 01/20/25 Unkn own History cranberry 500 mg capsule 500 mg PO DAILY 01/20/25 Unk nown History famotidine 40 mg tablet 40 mg PO DAILY 01/20/25 Unkn own History olanzapine 15 mg tablet 15 mg PO QHS 01/20/25 Unknow n History Allergy/AdvReac Type Severity Reaction Status Date / Time apricot Allergy Unknown PT UNSURE Verified 01/21/25 07:41 OF REACTION BCG (Bacillus Allergy Unknown Other Verified 01/21/25 07:41 Calmette-Zohra) vacc bee venom protein (honey Allergy Unknown Other Verified 01/21/25 07:41 bee) (bee sting) corn Allergy Unknown Other Verified 01/21/25 07:41 Milk Containing Products Allergy Unknown Other Verified 01/21/25 07:41 (Dairy) peas Allergy Unknown Other Verified 01/21/25 07:41 tomato Allergy Unknown Other Verified 01/21/25 07:41 Iodinated Contrast Media Allergy Hives Verified 01/21/25 07:41 (Iodinated Contrast Media - IV Dye) amoxicillin trihydrate (From AdvReac Itching Verified 01/21/25 07:41 Augmentin) hydrocodone (From Vicodin) AdvReac Unknown Verified 01/21/25 07:41 potassium clavulanate (From AdvReac Itching Verified 01/21/25 07:41 Augmentin) shellfish derived AdvReac Itching Verified 01/21/25 07:41 Surgical History History of surgery History of History of tubal ligation History of hysterectomy History of cholecystectomy History of appendectomy S/P right rotator cuff repair Social History Smoking Status: Light Smoker (<10/day) Review of Systems (Anesthesia) ROS Narrative System reviewed and no additional complaints, except as documented. Physical Exam Resp clear to auscultation bilaterally 01/21/25 08 <Electronically signed by Eric parsons MD> Date _ Eric Monte MD Cosigner Signature: Date CC: ~ Signed [facility] Work Phone: Consult note Author [facility] Note Date/Time January 21, 2025 10:0 2am [facility] Medical Records Department [address] [place] [id number] Anesthesia Postop Eval II 01/21/25 0949 MR#: [id number] Acct: [id number] Name: JULIANA MERIDA YANELI Rep #:[id number] : 1960 64 From: Kimmie DE LA CRUZ PCP: Mariah Atkinson MD Status:REG SDC Y Race: C Location: [place] [address] Anesthesia Postop Eval I Sum Postop Eval Completion status Anesthesia document: Postop Eval 1 completed: Yes Anesthesia Postop Eval I Summary Anesthesia Postop Eval I Summary: Anesthesia Postop Eval I: Assessment Summary Airway patent Yes 01/21/25 09:13 [email or web address] Spontaneous unlabored Yes 01/21/25 09:13 [email or web address] respirations Mental status Awake,Calm 01/21/25 09:13 [email or web address] nausea No 01/21/25 09:13 [email or web address] Vomiting No 01/21/25 09:13 [email or web address] Anesthesia Postop Eval I: Fluid Summary Crystalloid volume administer 300 01/21/25 09:13 [email or web address] (ml) Colloids volume administered ( ml) Blood Product volume administered (ml) Total IV fluid infused 300 01/21/25 09:13 [email or web address] Anesthesia Postop Eval I: Summary Notes Anesthesia Complication No 01/21/25 09:13 [email or web address] Anesthesia Complication Comment: Post-operative progress note Anesthesia: Postop Eval II Evaluation Mental status: Awake and Calm Pain Level: 0 nausea: No Vomiting: No Complications Anesthesia Complication: No 01/21/2549 <Electronically signed by Kimmie Serna CRNA> Date _ Kimmie Serna CRNA Cosigner Signature: Date CC: ~ Signed [facility] Work Phone: Evaluation + Plan note Future Appointments Appointment Date:09/28/2024 01:00:00 PM Scheduled Provider:MAULIK العلي DO Location:UROLOGY Appointment Type:URO OV Future Scheduled Tests Radiology* US Renal 09/13/24 [facility] Evaluation + Plan note Future Appointments Appointment Date:10/01/2025 02:00:00 PM Scheduled Provider:MAULIK العلي DO Location:UROLOGY Appointment Type:URO OV Future Scheduled Tests Radiology* US Renal 09/13/24 [facility] Evaluation note* Diagnosis Disturbance of skin sensation- [facility] Other osteoporosis without current pathological fracture- [facility]* Diagnosis Myofascial pain- Primary Mylagia and myositis, unspecified Implantable intrathecal infusion pump present documented in this encounter [facility] noteNo assessment information [facility]WC[facility] Work Phone: Evaluation note* Diagnosis Other osteoporosis without current pathological fracture- Primary Primary osteoarthritis involving multiple joints Vitamin D deficiency Unspecified vitamin D deficiency documented in this encounter [facility] note* Diagnosis Other osteoporosis without current pathological fracture- Primary documented in this encounter [facility] note* Diagnosis Other osteoporosis without current pathological fracture- Primary documented in this encounter [facility] note* Diagnosis Low back pain, unspecified back pain laterality, unspecified chronicity, unspecified whether sciatica present- Primary Pain in both lower extremities Osteoporosis, unspecified osteoporosis type, unspecified pathological fracture presence documented in this encounter [facility] note* Diagnosis Onset Date Resolution Status Insulin dependent diabetes mellitus acute Tobacco abuse acute 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 [facility] Work Phone: Evaluation note* Diagnosis Onset Date Resolution Status Insulin dependent diabetes mellitus acute Tobacco abuse acute 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 Closed fracture of distal end of left fibula noneactive Closed fracture of distal end of left fibula noneactive Insulin dependent diabetes mellitus acute Tobacco abuse acute 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 [facility] Work Phone: Evaluation note* Diagnosis Onset Date [...] of distal end of left fibula noneactive [facility] Work Phone: Evaluation note* Diagnosis Osteoporosis, unspecified osteoporosis type, unspecified pathological fracture presence- Primary documented in this encounter [facility] note* Diagnosis Osteoporosis, unspecified osteoporosis type, unspecified pathological fracture presence- Primary [facility] Diagnosis Onset Date Resolution Status Chronic [...] right ankle with fat layer exposed chronic [facility] Work Phone: Evaluation note* Diagnosis Onset Date [...] right ankle with fat layer exposed chronic [facility] Work Phone: Evaluation note* Diagnosis Onset Date [...] right ankle with fat layer exposed chronic [facility] Work Phone: Evaluation note* Diagnosis Onset Date [...] right ankle with fat layer exposed chronic [facility] Work Phone: Evaluation note* Diagnosis Other osteoporosis without current pathological fracture- Primary [facility] Diagnosis Osteoporosis, unspecified osteoporosis type, unspecified pathological fracture presence- Primary [facility] Diagnosis Onset Date Resolution [...] with fat layer exposed chronic Hyperlipidemia chronic [facility] Work Phone: Evaluation note* Diagnosis Onset Date [...] with fat layer exposed chronic Hyperlipidemia chronic [facility] Work Phone: Evaluation note* Diagnosis Onset Date [...] of tobacco use chron ic Hyperlipidemia chronic [facility] Work Phone: Evaluation note* Diagnosis Age-related osteoporosis without current pathological fracture- Primary Senile osteoporosis [facility] Author Fer Simmons [facility] Note Date/Time January 21, 2025 8:[address] [facility] Medical Records Department [address] [place] [address] History & Physical Exam 01/21/25 0836 MR#: [id number] Acct: [id number] Name: JULIANA MERIDA Rep #:[id number] : 1960 64 From: Fer Simmons DO PCP: Mariah Atkinson MD Status:REG [facility] Location: [place] [address] HPI - General General Date of Admission: 01/21/25 Date of Service: 01/21/25 HPI Narrative JULIANA MERIDA, is a 64 F who presentsWANDMario MERIDA, is a 64 F who presents to the office today for establishment with [facility] for concerns of abdominal epigastric pain, heartburn, and constipation. She resides at [facility] due to history of stroke affecting mobility, speech, and right side. She reports severe heartburn first thing in the morning with burning she feels to the top of her throat even while on pantoprazole 40mg daily. She reports that food and laying down too soonmake the pain worse. She is also reporting constipation. She has an implanted pain pump infusing morphine at a basal rate for chronic pain. Her facility has abowel protocol but she has to wait 3 days before getting any medicine for relief. She denies difficulty chewing and swallowing, throat clearing, cough, sinus drainage, nausea, emesis, abdominal cramping, diarrhea, hematochezia, and melena. [facility] Medical History History of pressure injury of skin Gastric reflux History of pain when walking Leg cramps Lives in alf Hx of fracture of hip Wears glasses [...] asthma Cerebral vascular disease Hypertension Home Medications ?Medication ?Instructions ?Recorded ?Last Taken ?Type ondansetron HCl 4 mg tablet 4 mg PO Q6H PRN PRN Nausea 03/08/19 Unknown History prazosin 1 mg capsule 1 mg PO QHS 03/08/1903/07/1 9 20:00 History albuterol sulfate 2.5 mg/3 mL 2.5 mg inhalation Q4H WA N SOB 07/29/21 Unknown History (0.083 %) solution for nebulization apixaban 5 mg tablet (Eliquis) 5 mg PO BID 07/29/21 History lurasidone 80 mg tablet (Latuda) 80 mg PO DAILY Unknown History naloxegol 25 mg tablet (Movantik) 25 mg PO DAILY 07/29 Unknown History acetaminophen 325 mg tablet 650 mg PO Q6H PRN PRN feve r or pain 12/18/22 Unknown History benzonatate 100 mg capsule 100 mg PO Q8H PRN cough 01/04 Unknown History bisacodyl 5 mg tablet,delayed 5 mg PO Q8H PRN PRN cons tipation 12/18/22 Unknown History release (Dulcolax (bisacodyl)) cholecalciferol (vitamin D3) 125 125 mcg PO DAILY 01/04 Unknown History mcg (5,000 unit) capsule diclofenac sodium 1 % topical gel 2 g topical Q8H PRN PRN pain 12/18/22 Unknown History epinephrine 0.3 mg/0.3 mL 0.3 mg IM Q5-15M PRN anaphyl axis 12/18/22 Unknown History injection, auto-injector (EpiPen) flash glucose sensor (FreeStyle 12/18/22 Unknown Hist ory Elisa 2 Sensor kit) fluticasone fur. 200 mcg-umeclid 1 inh inhalation ROCIO Y 12/18/22 Unknown History 62.5 mcg-vilant 25 mcg inhalat.powder (Trelegy Ellipta) guaifenesin 100 mg/5 mL oral liquid 200 mg PO Q4H PRN cough 12/18/22 Unknown History ipratropium 0.5 mg-albuterol 3 mg 3 ml inhalation BID PRN shortness 12/18/22 Unknown History (2.5 mg base)/3 mL nebulization of breath soln ipratropium 20 mcg-albuterol 100 1 puff inhalation Q6H PRN 12/18/22 Unknown History mcg/actuation mist for inhalation shortness of breath or wheezing (Combivent Respimat) ipratropium bromide 21 mcg (0.03 2 spray intranasal BI D 12/18/22 Unknown History %) nasal spray lisinopril 2.5 mg tablet 2.5 mg PO DAILY 12/18/2204/08 History loratadine 10 mg tablet (Claritin) 10 mg PO DAILY 01/04 Unknown History montelukast 10 mg tablet 10 mg PO DAILY 12/18/22 Unkn own History polyethylene glycol 3350 17 17 g PO DAILY PRN constipa tion 12/18/22 Unknown History gram/dose oral powder (Miralax) duloxetine 60 mg capsule,delayed 60 mg PO BID 01/16/23 Unknown History release (Cymbalta) pregabalin 100 mg capsule 100 mg PO BID 01/16/23 Unkno wn History Lactobacillus rhamnosus GG 10 1 cap PO BID 11/27/23 Un known History billion cell capsule (Culturelle) insulin lispro 100 unit/mL 1 sliding scale dose subcut TID 11/27/23 Unknown History subcutaneous pen (Humalog KwikPen (U-100) Insulin) loperamide 2 mg capsule 4 mg PO BID PRN loose stool 11/27/23 Unknown History (Anti-Diarrheal (loperamide)) carboxymethylcellulose sodium 0.5 1 drp EACH EYE BID 0 01/30/24 Unknown History % eye drops (Refresh Tears) cyclosporine 0.05 % eye drops in a 1 drp EACH EYE Q12H 01/30/24 Unknown History dropperette (Restasis) atenolol 50 mg tablet 50 mg PO QDAY 11/20/2401/20 History clonazepam 0.5 mg tablet 0.5 mg PO 1500 PRN anxiety 0 11/20/24 Unknown History insulin glargine U-300 conc 300 100 unit subcut QAM Unknown History unit/mL (1.5 mL) subcutaneous pen (Toujeo SoloStar U-300 Insulin) insulin glargine U-300 conc 300 90 unit subcut QHS 04/08 Unknown History unit/mL (3 mL) subcutaneous pen (Toujeo Max U-300 SoloStar) insulin lispro 100 unit/mL 50 unit subcut DAILY Unknown History subcutaneous pen (Humalog KwikPen (U-100) Insulin) insulin lispro 100 unit/mL 54 unit subcut DINNER 11/20 Unknown History subcutaneous pen (Humalog KwikPen (U-100) Insulin) magnesium hydroxide 400 mg/5 mL 15 ml PO BID PRN const ipation 11/20/24 Unknown History oral suspension (Milk of Magnesia) tirzepatide 7.5 mg/0.5 mL 7.5 mg subcut FR 11/20/24 History subcutaneous pen injector (Mounjaro) Held on 01/20/25. Instructions: ON HOLD FOR EGD 01/21/25 - LAST DOSE 01/08/25 atorvastatin 40 mg tablet 40 mg PO DAILY 01/20/25 Unkn own History cranberry 500 mg capsule 500 mg PO DAILY 01/20/25 Unk nown History famotidine 40 mg tablet 40 mg PO DAILY 01/20/25 Unkn own History olanzapine 15 mg tablet 15 mg PO QHS 01/20/25 Unknow n History Allergy/AdvReac Type Severity Reaction Status Date / Time apricot Allergy Unknown PT UNSURE Verified 01/21/25 07:41 OF REACTION BCG (Bacillus Allergy Unknown Other Verified 01/21/25 07:41 Calmette-Zohra) vacc bee venom protein (honey Allergy Unknown Other Verified 01/21/25 07:41 bee) (bee sting) corn Allergy Unknown Other Verified 01/21/25 07:41 Milk Containing Products Allergy Unknown Other Verified 01/21/25 07:41 (Dairy) peas Allergy Unknown Other Verified 01/21/25 07:41 tomato Allergy Unknown Other Verified 01/21/25 07:41 Iodinated Contrast Media Allergy Hives Verified 01/21/25 07:41 (Iodinated Contrast Media - IV Dye) amoxicillin trihydrate (From AdvReac Itching Verified 01/21/25 07:41 Augmentin) hydrocodone (From Vicodin) AdvReac Unknown Verified 01/21/25 07:41 potassium clavulanate (From AdvReac Itching Verified 01/21/25 07:41 Augmentin) shellfish derived AdvReac Itching Verified 01/21/25 07:41 Surgical History History of surgery History of History of tubal ligation History of hysterectomy History of cholecystectomy History of appendectomy S/P right rotator cuff repair Social History Smoking Status: Former smoker (Patient quit smoking 2 and half months ago.) ROS Constitutional Constitutional: Denies fatigue, fever(s), poor appetite, weight gain or weight loss Gastrointestinal Gastrointestinal: Denies belching, bloating, change in bowel habits, change in stool character, chewing difficulty, coffee ground emesis, constipation, cramping, diarrhea, dyspepsia, dysphagia, early satiety, excessive flatus, fecalincontinence, heartburn, hematemesis, hematochezia, hemorrhoids, loose stools, melena, nausea, odynophagia, rectal bleeding, tenesmus, vomiting or weight changes Vital Signs Vital Signs Vital Signs: 01/21/25 07:45 01/21/25 07:45 01/21/25 08:23 Temperature 97.4 F L 97.4 F L Temperature Source Temporal Pulse Rate 77 77 Respiratory Rate 18 18 Respiratory Pattern Normal Blood Pressure 127/54 H 127/54 H Blood Pressure Mean 78 Blood Pressure Source Monitor Blood Pressure Position Semi-Fowlers Blood Pressure Location Right Arm Pulse Ox 98 98 Oxygen Delivery Method Room Air Room Air Weight Weight: 200 lb Body Mass Index (BMI) 34.9 Physical Exam Const alert, oriented x3, no apparent distress and healthy appearing General Appearance: cooperative GI normal to inspection, nondistended, normoactive bowel sounds, soft to palpation,non-tender and non-distended Percussion: normal to percussion Rectal Exam: deferred Results Lab / Micro Data Labs: Laboratory Results - last 24 hr 01/21/25 07:52: POC Glucose 279 H Assessment & Plan Assessment/Plan (1) Epigastric abdominal pain: (2) Constipation: QUALIFIERS: Constipation type: unspecified constipation type Qualified Code(s): K59.00 - Constipation, unspecified PLAN: Assessment and Plan Assessment and Plan (1) Esophageal reflux: Status: Chronic Qualifiers: Esophagitis presence: esophagitis presence not specified Qualified Code(s): K21.9 - Gastro-esophageal reflux disease without esophagitis (2) Epigastric abdominal pain: Status: Acute (3) Constipation: Status: Acute Qualifiers: Constipation type: unspecified constipation type Qualified Code(s): K59.00 - Constipation, unspecified Plan JULIANA MERIDA, is a 64 F who presents to the office today for establishment with [facility] for concerns of abdominal epigastric pain, heartburn, and constipation. Constipation is most likely drug-induced. Discussed care plan with her. She has never had an EGD but her last colonoscopy was done in [place] around 2022. * polyethylene glycol (Miralax) 17gm PO QHS x2wk * psyllium husk 1tsp PO QAM w/8oz water * prune juice * change pantoprazole to omeprazole 40mg PO twice daily 30minutes before breakfast and dinner * famotidine 40mg PO QHS * schedule EGD * consider colonoscopy * office FU 1wk after EGD 01/21/25 0837 <Electronically signed by Fer Simmons DO> Cosigner Signature (if applicable): CC: Mariah Atkinson MD; Fer Simmons DO~ Signed [facility] Work Phone: Hospital course Narrative No data available for this section [facility] Hospital Discharge instructions No data available for this section [facility] Discharge instructions Additional Instructions 17 mm exophytic mass right kidney seen. Further workup advised as an outpatient. Increase furosemide to 60 mg once a day, or as advised by Dr. Palomares if different dosing desired.[facility] Work Phone: Note* TAVIA NORRIS MD: SIGN, VERIFY Event Display: EKG [ED AO] - CV Authored Date: [id number] [facility] Progress note No data available for this section [facility] Reason for referral (narrative)No reason for referral information availableWCleveland [facility] Work Phone: Summary Purpose Family History No [...] Will No July 29 11:45pm Power of Manager Of Maintenance No July 29, 2021 11:45pm Advance Directive Response Recorded Date/ Time Advance Directives No July 27, 2016 2:54pm Living Will No July 29 10:45pm Power of Manager Of Maintenance No July 29, 2021 10:45pm Advance Directive Response Recorded Date/ Time Advance Directives No July 27, 2016 3:54pm Living Will Yes November 24, 2023 4 :30pm Power of Manager Of Maintenance No November 24, 2023 4:30pm Advance Directive Response Recorded Date/ Time Living Will No September 12, 2024 11:13pm Power of Manager Of Maintenance Yes September 12 11:13pm Name of Medical Power of Manager Of Maintenance jose armas September 12, 2024 11:13pm Living Will No September 27, 2024 1:40am Power of Manager Of Maintenance Yes September 27 1:40am Name of Medical Power of Manager Of Maintenance JOSE ARMAS September 27, 2024 1:40am Advance Directives No July 27, 2016 3:54pm Advance Directive Response Recorded Date/ Time Living Will No September 27, 2024 1:40am Do you have a Healthcare Power of Manager Of Maintenance? Yes September 27, 2024 1:40am Name of Medical Power of Manager Of Maintenance JOSE ARMAS September 27, 2024 1:40am Do you have a Healthcare Power of Manager Of Maintenance? No January 20, 2025 11:52am Advance Directives No July 27, 2016 3:54pm [...] PAIN MGT Ronaldo Villarreal MD [address] [place] [address] Referral ID Status Reason Start Date Expiration Date Visits Requested Visits Authorized [id number] Ref Not Required PCP Requested Referral 12/13/2021 [...] FLANK PAIN September 27, 2024 1:3 5am Chief Complaint Admit Date FLANK PAIN September 27, 2024 1:3 5am ABD Pain November 20, 2024 2:17pm Reason for Visit Admit Date Constipation November 20, 2024 2:17pm Epigastric abdominal pain November 20, 2024 2:17pm Esophageal reflux November 20, 2024 2:17pm Constipation January 21, 2025 7:19 am Epigastric abdominal pain January 21 7:19am Additional Source Comments INFORMATION SOURCE (unrecogn ized section and content) DATE CREATED AUTHOR 01/08/2018 [facility] DATE CREATED AUTHOR AUTHOR'S ORGANIZ ATION 2021 [facility] DATE CREATED AUTHOR AUTHOR'S ORGANIZ ATION 10/07/2023 [facility] ([place]) DATE CREATED AUTHOR AUTHOR'S ORGANIZ ATION 11/21/2024 [facility] DATE CREATED AUTHOR AUTHOR'S ORGANIZ ATION 01/24/2025 [facility] DATE CREATED AUTHOR AUTHOR'S ORGANIZ ATION 01/24/2025 [facility] Source Comments (unrecognize d section and content) In the event this informatio n is protected by the Federal Confidentiality of Alcohol and Drug Abuse Patient Records regulations: The Federal rules restrict any use of the information to criminally investigate or prosecute any alcohol or drug abuse patient.[facility] the event this information is protected by the Federal Confidentiality of Alcohol and Drug Abuse Patient Records regulations: The Federal rules restrict any use of the information to criminally investigate or prosecute any alcohol or drug abuse patient.[facility] the event this information is protected by the Federal Confidentiality of Alcohol and Drug Abuse Patient Records regulations: The Federal rules restrict any use of the information to criminally investigate or prosecute any alcohol or drug abuse patient.[facility] the event this information is protected by the Federal Confidentiality of Alcohol and Drug Abuse Patient Records regulations: The Federal rules restrict any use of the information to criminally investigate or prosecute any alcohol or drug abuse patient.[facility] the event this information is protected by the Federal Confidentiality of Alcohol and Drug Abuse Patient Records regulations: The Federal rules restrict any use of the information to criminally investigate or prosecute any alcohol or drug abuse patient.[facility] the event this information is protected by the Federal Confidentiality of Alcohol and Drug Abuse Patient Records regulations: The Federal rules restrict any use of the information to criminally investigate or prosecute any alcohol or drug abuse patient.[facility] the event this information is protected by the Federal Confidentiality of Alcohol and Drug Abuse Patient Records regulations: The Federal rules restrict any use of the information to criminally investigate or prosecute any alcohol or drug abuse patient.[facility] the event this information is protected by the Federal Confidentiality of Alcohol and Drug Abuse Patient Records regulations: The Federal rules restrict any use of the information to criminally investigate or prosecute any alcohol or drug abuse patient.[facility] the event this information is protected by the Federal Confidentiality of Alcohol and Drug Abuse Patient Records regulations: The Federal rules restrict any use of the information to criminally investigate or prosecute any alcohol or drug abuse patient.[facility] the event this information is protected by the Federal Confidentiality of Alcohol and Drug Abuse Patient Records regulations: The Federal rules restrict any use of the information to criminally investigate or prosecute any alcohol or drug abuse patient.[facility] the event this information is protected by the Federal Confidentiality of Alcohol and Drug Abuse Patient Records regulations: The Federal rules restrict any use of the information to criminally investigate or prosecute any alcohol or drug abuse patient.[facility] the event this information is protected by the Federal Confidentiality of Alcohol and Drug Abuse Patient Records regulations: The Federal rules restrict any use of the information to criminally investigate or prosecute any alcohol or drug abuse patient.[facility] Center[facility] the event this information is protected by the Federal Confidentiality of Alcohol and Drug Abuse Patient Records regulations: The Federal rules restrict any use of the information to criminally investigate or prosecute any alcohol or drug abuse patient.[facility] Center[facility] the event this information is protected by the Federal Confidentiality of Alcohol and Drug Abuse Patient Records regulations: The Federal rules restrict any use of the information to criminally investigate or prosecute any alcohol or drug abuse patient.[facility] Center[facility] the event this information is protected by the Federal Confidentiality of Alcohol and Drug Abuse Patient Records regulations: The Federal rules restrict any use of the information to criminally investigate or prosecute any alcohol or drug abuse patient.[facility] CenterIn the event this information is protected by the Federal Confidentiality of Alcohol and Drug Abuse Patient Records regulations: The Federal rules restrict any use of the information to criminally investigate or prosecute any alcohol or drug abuse patient.[facility] CenterIn the event this information is protected by the Federal Confidentiality of Alcohol and Drug Abuse Patient Records regulations: The Federal rules restrict any use of the information to criminally investigate or prosecute any alcohol or drug abuse patient.[facility] CenterIn the event this information is protected by the Federal Confidentiality of Alcohol and Drug Abuse Patient Records regulations: The Federal rules restrict any use of the information to criminally investigate or prosecute any alcohol or drug abuse patient.[facility] CenterIn the event this information is protected by the Federal Confidentiality of Alcohol and Drug Abuse Patient Records regulations: The Federal rules restrict any use of the information to criminally investigate or prosecute any alcohol or drug abuse patient.[facility] CenterIn the event this information is protected by the Federal Confidentiality of Alcohol and Drug Abuse Patient Records regulations: The Federal rules restrict any use of the information to criminally investigate or prosecute any alcohol or drug abuse patient.[facility] CenterIn the event this information is protected by the Federal Confidentiality of Alcohol and Drug Abuse Patient Records regulations: The Federal rules restrict any use of the information to criminally investigate or prosecute any alcohol or drug abuse patient.[facility] Reason for Visit (unrecogniz ed section and content) Reason Comments Imm/Inj Specialty Diagnoses / Procedures Referred By Contac t Referred To Contact Neurology / HEMONC INFUSION Diagnoses // prolia Procedures DENOSUMAB INJECTION TREATMENT 30 MINUTES Funmilayo Pope MD [address] [place] [address] Infusion [facility] [place] [address] [place] [address] Referral ID Status Reason Start Date Expiration Date V isits Requested Visits Authorized [id number] Authorized 07/27/2024 07/15/2025 1 2 Specialty Diagnoses / Procedures Referred By Contac t Referred To Contact HEMATOLOGY/ONCOLOGY Diagnoses Other osteoporosis without current pathological fracture Procedures DENOSUMAB INJECTION Prolia [id number] Funmilayo Pope MD [address] [place] [address] [facility] [address] [place] [address] Referral ID Status Reason Start Date Expiration Date V isits Requested Visits Authorized [id number] Authorized 01/31/2022 03/26/2024 2 2 Reason Comments Medication Follow-up Reason Comments Patient Update NEW PHONE NUMBER Reason Comments Infusion Specialty Diagnoses / Procedures Referred By Contac t Referred To Contact Diagnoses Other osteoporosis without current pathological fracture Procedures Funmilayo King MD [address] [place] [address] Joe Treat [facility] [place] [address] [place] [address] Referral ID Status Reason Start Date Expiration Date V isits Requested Visits Authorized [id number] Authorized 09/12/2021 12/11/2021 99 99 Reason Comments Procedure Reason Comments Osteoarthritis Reason Comments Medication Authorization Prolia - NO PA REQ for medicare B Reason Comments Osteoporosis BMD on 08/07/2021 Reason Comments Orders Reason Comments APPROVED Prolia ([place]) APPROV ED [id number] 03.26.23 - 03.26.24 for 2 visits [facility] Medicare/Portal Reason Comments Results Reason Comments Appointment Reason Comments Medication Preauthorization Prolia- [place] Approved [id number] [facility] Medicare/Portal 07.15.24-07.15.25 2 visits Care Teams (unrecognized sec tion and content) Bioprocess Engineer Relationship Specialty Start Date End Date Lana Arrieta MD [address] [place] [address] PCP - General Family Practice 12/28/20 Bioprocess Engineer Relationship Specialty Start Date End Date Lana Arrieta MD [address] [place] [address] PCP - General Family Practice 12/28/20 Bioprocess Engineer Relationship Specialty Start Date End Date Lana Arrieta MD [address] [place], [place] [address] PCP - General Family Practice 12/28/20 Bioprocess Engineer Relationship Specialty Start Date End Date Lana Arrieta MD [address] [place], [place] [address] PCP - General Family Practice 12/28/20 Bioprocess Engineer Relationship Specialty Start Date End Date Lana Arrieta MD [address] [place] [address] PCP - General Family Practice 12/28/20 [facility] [address] [address] Anesthesiology 01/31/22 Bioprocess Engineer Relationship Specialty Start Date End Date Lana Arrieta MD [address] [place] [address] PCP - General Family Practice 12/28/20 [facility], [address] [address] Anesthesiology 01/31/22 Bioprocess Engineer Relationship Specialty Start Date End Date Lana Arrieta MD [address] [place] [address] PCP - General Family Practice 12/28/20 [facility] [address] [address] Anesthesiology 01/31/22 Bioprocess Engineer Relationship Specialty Start Date End Date Lana Arrieta MD [address] [place] [address] PCP - General Family Medicine 12/28/20 [facility] [address] [address] Anesthesiology 01/31/22 Bioprocess Engineer Relationship Specialty Start Date End Date Lana Arrieta MD [address] [place] [address] PCP - General Family Medicine 12/28/20 Lauren Ruelas [address] [place] [address] Anesthesiology 01/31/22 Team Status: Active Member Role [...] Dr. Festus Luque MD Attending Provider Active Bioprocess Engineer Relationship Specialty Start Date End Date Lana Arrieta MD [address] [place] [address] PCP - General Family Medicine 12/28/20 Lauren Ruelas [address] [place], [place] [address] Anesthesiology 01/31/22 Bioprocess Engineer Relationship Specialty Start Date End Date Lana Arrieta MD [address] [place] [address] PCP - General Family Medicine 12/28/20 Lauren Ruelas [address] [place] [address] Anesthesiology 01/31/22 Bioprocess Engineer Relationship Specialty Start Date End Date Lana Arrieta MD [address] [place] [address] PCP - General Family Medicine 12/28/20 Lauren Ruelas [address] [place] [address] Anesthesiology 01/31/22 Bioprocess Engineer Relationship Specialty Start Date End Date Lana Arrieta MD [address] [place] [address] PCP - General Family Medicine 12/28/20 Lauren Ruelas [address] [place] [address] Anesthesiology 01/31/22 Bioprocess Engineer Relationship Specialty Start Date End Date Lana Arrieta MD [address] [place] [address] PCP - General Family Medicine 12/28/20 Lauren Ruelas MD [address] [place] [address] Anesthesiology 01/31/22 Bioprocess Engineer Relationship Specialty Start Date End Date Lana Arrieta MD [address] [place] [address] PCP - General Family Medicine 12/28/20 Lauren Ruelas MD [address] [place] [address] Anesthesiology 01/31/22 Team Status: Inactive Member Role Status Dates Dr. Bianca Palomares MD Primary Care Provider, Referring Provider Active Dr. Karthikeyan Grove DPM Attending Provider Active Team Status: Active Member Role Status Dates Dr. Bianca Palomares MD Primary Care Provider Active Dr. Chilanog Laughlin MD Attending Provider, Referrin g Provider Active Team Status: Inactive Member [...] Dr. Dino Pena MD Emergency Provider Active Bioprocess Engineer Relationship Specialty Start Date End Date Lana Arrieta MD [address] [place] [address] PCP - General Family Medicine 12/28/20 Lauren Ruelas MD [address] [place] [address] Anesthesiology 01/31/22 Bioprocess Engineer Relationship Specialty Start Date End Date Lana Arrieta MD [address] [place] [address] PCP - General Family Medicine 12/28/20 Lauren Ruelas MD [address] [place] [address] Anesthesiology 01/31/22 Bioprocess Engineer Relationship Specialty Start Date End Date Lana Arrieta MD [address] [place] [address] PCP - General Family Medicine 12/28/20 Lauren Ruelas MD [address] [place] [address] Anesthesiology 01/31/22 Team Status: Active Member Role Status Dates Dr. Mariah Atkinson MD Primary Care Provider Ac tive Team Status: Inactive Member Role Status Dates Dr. Dino Pena MD Attending Provider Active Start: September 12, 2024 End: September 13, 2024 Dr. Dino Pena MD Emergency Provider Active Start: September 12, 2024 End: September 13, 2024 Dr. Mariah Atkinson MD Primary Care Provider Ac tive Start: September 12, 2024 End: September 13, 2024 Team Status: Inactive Member Role Status Dates Dr. Mariah Atkinson MD Primary Care Provider Ac tive Start: September 27, 2024 End: September 27, 2024 Dr. Gregorio Cochran DO Emergency Provider Active Start: September 27, 2024 End: September 27, 2024 Bioprocess Engineer Relationship Specialty Start Date End Date Lana Arrieta MD [address] [place] [address] PCP - General Family Medicine 12/28/20 Lauren Ruelas MD [address] [place] [address] Anesthesiology 01/31/22 Team Status: Active Member Role/Relationship Status Dates Dr. Mariah Atkinson MD Primary Care Provider Ac tive Team Status: Inactive Member Role/Relationship Status Dates Dr. Mariah Atkinson MD Primary Care Provider Ac tive Start: September 27, 2024 End: September 27, 2024 Dr. Gregorio Cochran DO Attending Provider Active Start: September 27, 2024 End: September 27, 2024 Dr. Gregorio Cochran DO Emergency Provider Active Start: September 27, 2024 End: September 27, 2024 Team Status: Inactive Member Role/Relationship Status Dates Dr. Mariah Atkinson MD Primary Care Provider Ac tive Start: November 20, 2024 End: November 20, 2024 Dr. Mariah Atkinson MD Referring Provider Activ e Start: November 20, 2024 End: November 20, 2024 KALEIGH Ellis Attending Provider Active S tart: November 20, 2024 End: November 20, 2024 Team Status: Inactive Member Role/Relationship Status Dates Dr. Mariah Atkinson MD Primary Care Provider Ac tive Start: January 21, 2025 End: January 21, 2025 Dr. Mariah Atkinson MD Referring Provider Activ e Start: January 21, 2025 End: January 21, 2025 Dr. Fer Simmons DO Attending Provider Active Start: January 21, 2025 End: January 21, 2025 Team Status: Active Member Role/Relationship Status Dates Dr. Mariah Atkinson MD Primary Care Provider Ac tive Start: January 21, 2025 Dr. Mariah Atkinson MD Referring Provider Activ e Start: January 21, 2025 Dr. Fer Simmons DO Attending Provider Active Start: January 21, 2025 Dr. Fer Simmons DO Other Provider Active St art: January 21, 2025 Goals (unrecognized section and content) Goals may be documented in a n alternate section Care Team (unrecognized sect ion and content) Care Team Personnel Name: LANA ARRIETA MD Position: P4 Physician - Primary Care Med Service: Active Provider Member Role: Primary Care Physician Address: Address: [address] [place] [address] Care Team Related Persons Name: JOSE ARMAS Care Team Personnel Name: LANA ARRIETA MD Position: P4 Physician - Primary Care Med Service: Active Provider Member Role: Primary Care Physician Address: Address: [address] [place] [address] Care Team Related Persons Name: JOSE ARMAS [...] BE BASED ON THE PRIMARY CLINICAL RECORDS. [facility]. provides no warranty or guarantee of the accuracy or completeness of information in this document.
[2025-01-25 02:00] VITALS: BP 149/96; PULSE 76; RESP 16; O2SAT 95
--- NOTE | 2025-01-25 02:08 | EX.ED.DYSGE1 ---
HPI History of Present Illness Chief Complaint: Fall Informant: patient, EMS and SNF Narrative Narrative: Patient is a 64-year-old [place] [facility] with history of previous CVA currently on Eliquis as well as COPD hypertension and diabetes. Patient states that she gets around with a wheelchair and will only stand to pivot and transfer. She states she was attempting to do this when she lost her balance and fell and her right leg got bent backward. She states she had sudden pain and swelling to the right lower leg and cannot move or bear weight on it. She states she did not strike her head or have loss of consciousness but she does admit to blood thinner use. custodial states that because of the fall and history of blood thinner use as well as her pain there is concern for head injury and fracture so she was sent in for evaluation. [facility] Medical History (Updated 01/27/25 @ 04:[address] Rancho Orozco, ) History of pressure injury of skin Gastric reflux History of pain when walking Leg cramps Lives in jail Hx of fracture of hip Wears glasses Wears dentures Post-menopausal Depression Alcohol use Substance abuse Open wound Uses wheelchair Arthritis High cholesterol Restless legs Back pain Smoker Asthma Shortness of breath on exertion History of edema Tobacco abuse Insulin dependent diabetes mellitus 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 GERD (gastroesophageal reflux disease) Anxiety Schizophrenia Hyperlipidemia Insomnia Neuralgia and neuritis Spondylosis Mild asthma Cerebral vascular disease Hypertension Home Medications ?Medication ?Instructions ?Recorded ?Last Taken ?Type ondansetron HCl 4 mg tablet 4 mg PO Q6H PRN PRN Nausea 03/08/19 Unknown History prazosin 1 mg capsule 1 mg PO QHS 03/08/19 03/07/19 20:00 History albuterol sulfate 2.5 mg/3 mL 2.5 mg inhalation Q4H PRN SOB 07/29/21 Unknown History (0.083 %) solution for nebulization apixaban 5 mg tablet (Eliquis) 5 mg PO BID 07/29/21 01/17/25 History lurasidone 80 mg tablet (Latuda) 80 mg PO DAILY 07/29/21 Unknown History naloxegol 25 mg tablet (Movantik) 25 mg PO DAILY 07/29/21 Unknown History acetaminophen 325 mg tablet 650 mg PO Q6H PRN PRN fever or pain 12/18/22 Unknown History benzonatate 100 mg capsule 100 mg PO Q8H PRN cough 12/18/22 Unknown History bisacodyl 5 mg tablet,delayed 5 mg PO Q8H PRN PRN constipation 12/18/22 Unknown History release (Dulcolax (bisacodyl)) cholecalciferol (vitamin D3) 125 125 mcg PO DAILY 12/18/22 Unknown History mcg (5,000 unit) capsule epinephrine 0.3 mg/0.3 mL 0.3 mg IM Q5-15M PRN anaphylaxis 12/18/22 Unknown History injection, auto-injector (EpiPen) flash glucose sensor (FreeStyle 12/18/22 Unknown History Cynthia 2 Sensor kit) fluticasone fur. 200 mcg-umeclid 1 inh inhalation DAILY 12/18/22 Unknown History 62.5 mcg-vilant 25 mcg inhalat.powder (Trelegy Ellipta) guaifenesin 100 mg/5 mL oral liquid 200 mg PO Q4H PRN cough 12/18/22 Unknown History ipratropium 0.5 mg-albuterol 3 mg 3 ml inhalation BID PRN shortness 12/18/22 Unknown History (2.5 mg base)/3 mL nebulization of breath soln ipratropium 20 mcg-albuterol 100 1 puff inhalation Q6H PRN 12/18/22 Unknown History mcg/actuation mist for inhalation shortness of breath or wheezing (Combivent Respimat) ipratropium bromide 21 mcg (0.03 2 spray intranasal BID 12/18/22 Unknown History %) nasal spray lisinopril 2.5 mg tablet 2.5 mg PO DAILY 12/18/22 01/20/25 History loratadine 10 mg tablet (Claritin) 10 mg PO DAILY 12/18/22 Unknown History montelukast 10 mg tablet 10 mg PO DAILY 12/18/22 Unknown History polyethylene glycol 3350 17 17 g PO DAILY PRN constipation 12/18/22 Unknown History gram/dose oral powder (Miralax) duloxetine 60 mg capsule,delayed 60 mg PO BID 01/16/23 Unknown History release (Cymbalta) pregabalin 100 mg capsule 100 mg PO BID 01/16/23 Unknown History Lactobacillus rhamnosus GG 10 1 cap PO BID 11/27/23 Unknown History billion cell capsule (Culturelle) insulin lispro 100 unit/mL 1 sliding scale dose subcut TID 11/27/23 Unknown History subcutaneous pen (Humalog KwikPen (U-100) Insulin) loperamide 2 mg capsule 4 mg PO BID PRN loose stool 11/27/23 Unknown History (Anti-Diarrheal (loperamide)) carboxymethylcellulose sodium 0.5 1 drp EACH EYE BID 01/30/24 Unknown History % eye drops (Refresh Tears) cyclosporine 0.05 % eye drops in a 1 drp EACH EYE Q12H 01/30/24 Unknown History dropperette (Restasis) atenolol 50 mg tablet 50 mg PO QDAY 11/20/24 01/20/25 History clonazepam 0.5 mg tablet 0.5 mg PO 1500 PRN anxiety 11/20/24 Unknown History insulin glargine U-300 conc 300 100 unit subcut QAM 11/20/24 Unknown History unit/mL (1.5 mL) subcutaneous pen (Toujeo SoloStar U-300 Insulin) insulin glargine U-300 conc 300 90 unit subcut QHS 11/20/24 Unknown History unit/mL (3 mL) subcutaneous pen (Toujeo Max U-300 SoloStar) insulin lispro 100 unit/mL 50 unit subcut DAILY 11/20/24 Unknown History subcutaneous pen (Humalog KwikPen (U-100) Insulin) insulin lispro 100 unit/mL 54 unit subcut DINNER 11/20/24 Unknown History subcutaneous pen (Humalog KwikPen (U-100) Insulin) magnesium hydroxide 400 mg/5 mL 15 ml PO BID PRN constipation 11/20/24 Unknown History oral suspension (Milk of Magnesia) tirzepatide 7.5 mg/0.5 mL 7.5 mg subcut FR 11/20/24 01/08/25 History subcutaneous pen injector (Mounjaro) atorvastatin 40 mg tablet 40 mg PO DAILY 01/20/25 Unknown History cranberry 500 mg capsule 500 mg PO DAILY 01/20/25 Unknown History famotidine 40 mg tablet 40 mg PO DAILY 01/20/25 Unknown History olanzapine 15 mg tablet 15 mg PO QHS 01/20/25 Unknown History oxycodone-acetaminophen 5 mg-325 1 tab PO Q6H PRN pain 5 days #20 01/25/25 Unknown Rx mg tablet (Percocet) tabs omeprazole 40 mg capsule,delayed 40 mg PO BID 01/26/25 Unknown History release oxybutynin chloride 5 mg tablet 5 mg PO DAILY 01/26/25 Unknown History Allergy/AdvReac Type Severity Reaction Status Date / Time apricot Allergy Unknown PT UNSURE Verified 01/26/25 23:17 OF REACTION BCG (Bacillus Allergy Unknown Other Verified 01/26/25 23:17 Calmette-Zohra) vacc bee venom protein (honey Allergy Unknown Other Verified 01/26/25 23:17 bee) (bee sting) corn Allergy Unknown Other Verified 01/26/25 23:17 Milk Containing Products Allergy Unknown Other Verified 01/26/25 23:17 (Dairy) peas Allergy Unknown Other Verified 01/26/25 23:17 tomato Allergy Unknown Other Verified 01/26/25 23:17 Iodinated Contrast Media Allergy Hives Verified 01/26/25 23:17 (Iodinated Contrast Media - IV Dye) amoxicillin trihydrate (From AdvReac Itching Verified 01/26/25 23:17 Augmentin) hydrocodone (From Vicodin) AdvReac Unknown Verified 01/26/25 23:17 potassium clavulanate (From AdvReac Itching Verified 01/26/25 23:17 Augmentin) shellfish derived AdvReac Itching Verified 01/26/25 23:17 Surgical History History of surgery History of History of tubal ligation History of hysterectomy History of cholecystectomy History of appendectomy S/P right rotator cuff repair Social History Smoking Status: Former smoker ROS ROS ED Constitutional Constitutional ED: Denies chills or fever(s) Eyes Eyes: Denies blurry vision or change in vision ENT ENT ED: Denies sore throat Cardiovascular Cardiovascular: Reports other Details: Negative syncope ; Denies chest pain Respiratory/Chest Respiratory/Chest: Denies cough or dyspnea Gastrointestinal Gastrointestinal: Denies abdominal pain, diarrhea, nausea or vomiting Musculoskeletal Musculoskeletal: Reports other Details: Positive right lower leg pain ; Denies back pain or neck pain Integumentary Denies rash Neurologic Neurologic: Denies headache(s) Hematologic/Lymphatic Hematologic/Lymphatic: Reports easy bleeding and easy bruising EXAM Physical Exam Const Vital Signs: 01/24/25 22:34 01/24/25 23:59 01/25/25 00:33 Temperature 98.3 F Temperature Source Oral Pulse Rate 64 Respiratory Rate 20 H 14 Respiratory Effort Normal Non-Labored Respiratory Depth Normal Respiratory Pattern Normal Blood Pressure 118/65 157/77 H Blood Pressure Mean 82 103 Pulse Ox 97 92 Oxygen Delivery Method Room Air Room Air Positive well nourished, well developed and obese General Appearance ED: well developed Nutritional Appearance: obese HEENT HEENT Narrative: Normocephalic atraumatic No signs of depressed or basilar skull fracture Eyes PERRL and EOMs intact bilaterally Neck supple Neck Narrative: No bony deformity or step-off of the cervical spine no midline tenderness to palpation Chest Wall palpation of chest normal Resp normal respiratory effort Resp Narrative: Breath sounds are diminished throughout with faint expiratory wheeze and rhonchi in the bilateral bases consistent with history of COPD but no signs of respiratory distress Cardio regular rate and regular rhythm GI non-tender, non-distended and no masses GI Narrative: Abdomen is soft nontender and nondistended with hypoactive bowel sounds. No voluntary guarding or rigidity or pulsatile mass Auscultation: hypoactive bowel sounds Palpation: soft Back/Spine Back/Spine Narrative: No bony deformity or step-off of the thoracic or lumbar spine; no midline tenderness to palpation Extremity Extremity Narrative: Pelvis is stable there is no shortening or external rotation of either lower extremity. There is soft tissue swelling with faint warmth and ecchymosis starting just below the right knee near the tibial tuberosity region. There is pain with palpation at this site. The compartments are soft and compressible going against compartment syndrome. There is no obvious break in the skin to suggest open fracture. No overlying erythema to suggest infection Remainder of the exam is normal Neuro oriented x3 and CN's II-XII intact bilaterally Sensorium / Orientation: alert Psych mental status grossly normal Skin Skin Narrative: Soft tissue swelling with ecchymosis to the right lower leg is documented above consistent with hematoma from fracture MDM MDM MDM Narrative Medical decision making narrative: Patient arrived to the ER awake and alert and at baseline mental status. She reported a mechanical fall and therefore I have low concern for cardiac or syncope workup. She did not strike her head and there are no signs of head injury but with her Eliquis use there is still a possibility for a traumatic subarachnoid or subdural hemorrhage so a head CT was obtained. This revealed no signs of acute trauma. Pelvis x-ray confirmed no signs of pelvic rami fracture or hip fracture. X-ray of the right lower leg was obtained based on the pain and trauma and does confirm a proximal tibia and fibular fracture. The case was discussed with orthopedic surgeon Dr. Chow. He agrees that as the patient's fracture is closed and she is neurovascularly intact without signs of compartment syndrome or secondary infection there is no need for admission. He states that this type of fracture typically heals without surgical intervention and recommends a knee immobilizer for stabilization at this time. Therefore the patient was placed in an Daljit wrap to help reduce swelling and the knee immobilizer for stabilization of the fracture fragments. But as she does not have signs of internal injury and there is no need for workup regarding a potential syncopal event she is otherwise safe for discharge and outpatient follow-up History & Record Review Discussion w/independent historian: Patient Radiography Diagnostic Testing: Clinical Impression(s) from Imaging Studies Brain CT 01/25/25 00:23 IMPRESSION: No acute intracranial findings. Reading Location: [facility] Pelvis X-Ray 01/25/25 01:00 IMPRESSION: Intact pelvic ring. Reading Location: [facility] Tibia/Fibula X-Ray 01/25/25 01:00 IMPRESSION: Acute proximal right lower leg injury. Reading Location: [facility] Pelvis x-ray as interpreted by the emergency medicine physician reveals no acute fracture or dislocation Right tibia/fibula x-ray as interpreted by the emergency medicine physician reveals a nondisplaced proximal tibial and fibular fracture Management Discussion w/another healthcare provider: Trend Investigator Discharge Plan Triage Chief Complaint: Fall ED Provider: Rancho Orozco Dx/Rx/DC Orders Clinical Impression: Closed fracture of proximal end of right tibia and fibula, COPD (chronic obstructive pulmonary disease), Insulin dependent diabetes mellitus, Hypertension, Current use of rn long term care anticoagulation Instructions: ED Leg Fracture Prescriptions: New oxycodone-acetaminophen [Percocet] 5-325 mg tablet 1 tab PO Q6H PRN (Reason: pain) 5 Days Qty: 20 0RF No Action acetaminophen 325 mg tablet 650 mg PO Q6H PRN PRN (Reason: fever or pain) benzonatate 100 mg capsule 100 mg PO Q8H PRN (Reason: cough) loratadine [Claritin] 10 mg tablet 10 mg PO DAILY Combivent Respimat 20-100 mcg/actuation mist 1 puff inhalation Q6H PRN (Reason: shortness of breath or wheezing) bisacodyl [Dulcolax (bisacodyl)] 5 mg tablet,delayed release (DR/EC) 5 mg PO Q8H PRN PRN (Reason: constipation) epinephrine [EpiPen] 0.3 mg/0.3 mL auto-injector 0.3 mg IM Q5-15M PRN (Reason: anaphylaxis) Rx Instructions: do not exceed 3 doses per episode (DME) FreeStyle Cynthia 2 Sensor Kit See Rx Instructions .Route Rx Instructions: As directed guaifenesin 100 mg/5 mL liquid 200 mg PO Q4H PRN (Reason: cough) ipratropium bromide 21 mcg (0.03 %) spray,non-aerosol 2 spray intranasal BID Rx Instructions: administer into each nostril ipratropium-albuterol 0.5 mg-3 mg(2.5 mg base)/3 mL solution for nebulization 3 ml inhalation BID PRN (Reason: shortness of breath) lisinopril 2.5 mg tablet 2.5 mg PO DAILY polyethylene glycol 3350 [Miralax] 17 gram/dose powder 17 g PO DAILY PRN (Reason: constipation) montelukast 10 mg tablet 10 mg PO DAILY Trelegy Ellipta 200-62.5-25 mcg blister with device 1 inh inhalation DAILY cholecalciferol (vitamin D3) 125 mcg (5,000 unit) capsule 125 mcg PO DAILY insulin glargine U-300 conc [Toujeo SoloStar U-300 Insulin] 300 unit/mL (1.5 mL) insulin pen 100 unit subcut QAM duloxetine [Cymbalta] 60 mg capsule,delayed release(DR/EC) 60 mg PO BID pregabalin 100 mg capsule 100 mg PO BID atenolol 50 mg tablet 50 mg PO QDAY clonazepam 0.5 mg tablet 0.5 mg PO 1500 PRN (Reason: anxiety) magnesium hydroxide [Milk of Magnesia] 400 mg/5 mL suspension 15 ml PO BID PRN (Reason: constipation) Mounjaro 7.5 mg/0.5 mL pen injector 7.5 mg subcut FR prazosin 1 MG capsule 1 mg PO QHS ondansetron HCl 4 MG tablet 4 mg PO Q6H PRN PRN (Reason: Nausea) albuterol sulfate 2.5 mg /3 mL (0.083 %) Solution For Nebulization 2.5 mg INHALATION Q4H PRN (Reason: SOB) lurasidone [Latuda] 80 mg Tablet 80 mg PO DAILY Eliquis 5 mg Tablet 5 mg PO BID Movantik 25 mg Tablet 25 mg PO DAILY cyclosporine [Restasis] 0.05 % dropperette 1 drp EACH EYE Q12H carboxymethylcellulose sodium [Refresh Tears] 0.5 % drops 1 drp EACH EYE BID insulin lispro [Humalog KwikPen Insulin] 100 unit/mL insulin pen 50 unit subcut DAILY insulin lispro [Humalog KwikPen Insulin] 100 unit/mL insulin pen 54 unit subcut DINNER insulin glargine U-300 conc [Toujeo Max U-300 SoloStar] 300 unit/mL (3 mL) insulin pen 90 unit subcut QHS omeprazole 40 mg capsule,delayed release(DR/EC) 40 mg PO BID oxybutynin chloride 5 mg tablet 5 mg PO DAILY Culturelle 10 billion cell capsule 1 cap PO BID insulin lispro [Humalog KwikPen Insulin] 100 unit/mL insulin pen 1 sliding scale dose subcut TID Rx Instructions: PRIOR TO MEALS loperamide [Anti-Diarrheal (loperamide)] 2 mg capsule 4 mg PO BID PRN (Reason: loose stool) atorvastatin 40 mg tablet 40 mg PO DAILY cranberry 500 mg capsule 500 mg PO DAILY Rx Instructions: administer with a meal famotidine 40 mg tablet 40 mg PO DAILY olanzapine 15 mg tablet 15 mg PO QHS Primary Care Provider: Mariah Aktinson Referrals: Mariah Atkinson MD [Primary Care Provider] - Butch Chow DO [Med Staff - Active Staff] - (Proximal tibia and fibula fracture) Activity Restrictions/Additional Instructions: Wear the Daljit wrap to prevent further swelling in the knee immobilizer to stabilize the 2 fractures in your lower leg. Please do not bear any weight on your right leg as this has the chance to displace the fractures. You are allowed to bear weight/transfer on your left leg but as you will only be doing this with 1 leg you will need increased help with transfers. Please follow-up with the orthopedic surgeon to discuss further treatment options and return to the ER should you have any further concerns Print Language: Tajik Disposition Disposition: Home, Self Care Discharge Date/Time: 01/25/25 06:50
[2025-01-25 02:29] VITALS: BP 148/76; PULSE 75; RESP 16; TEMP 36.7; O2SAT 95
--- NOTE | 2025-01-25 02:47 | NURSING ---
detention called and notified of pt returning, non wt bearing on rt leg, soham wrap, knee imobolizer, and script for narcotics with be sent with pt. Nurse verbalized understanding.
[2025-01-25 04:00] VITALS: BP 118/55; PULSE 69; O2SAT 93
[2025-01-25 06:00] VITALS: BP 178/87; PULSE 90; RESP 18; O2SAT 97
== END 2025-01-25 06:50 | disposition skilled nursing facility (03) ==
PROVIDERS: Emergency Provider Emergency Medicine; PCP Hospitalist; Visit Provider Emergency Medicine
DX: S82.101A Unspecified fracture of upper end of right tibia, initial encounter for closed fracture (principal); J44.9 Chronic obstructive pulmonary disease, unspecified; E11.40 Type 2 diabetes mellitus with diabetic neuropathy, unspecified; Z79.4 Long term (current) use of insulin; R55 Syncope and collapse; Z87.891 Personal history of nicotine dependence; I10 Essential (primary) hypertension; Z90.710 Acquired absence of both cervix and uterus; Z79.01 Long term (current) use of anticoagulants; E78.00 Pure hypercholesterolemia, unspecified; Z86.73 Personal history of transient ischemic attack (TIA), and cerebral infarction without residual deficits; S82.831A Other fracture of upper and lower end of right fibula, initial encounter for closed fracture; W05.0XXA Fall from non-moving wheelchair, initial encounter; Y92.129 Unspecified place in nursing home as the place of occurrence of the external cause; E78.5 Hyperlipidemia, unspecified; Z99.3 Dependence on wheelchair; Z98.51 Tubal ligation status; Z90.49 Acquired absence of other specified parts of digestive tract
CPT/HCPCS: 99284; 70450; 72170; 73590; 96372

== ENCOUNTER 2025-01-26 23:16 | Inpatient (IN) | payer MEDICARE, MEDICAID, SELFPAY ==
--- NOTE | 2025-01-26 00:05 | RAD_ITS ---
PROCEDURE: CHEST 1 VIEW (PORTABLE) 01/27/2025 REASON FOR EXAM: DYSPNEA TECHNIQUE: Frontal view of the chest. COMPARISON: None FINDINGS: Rotated patient. Heart size is upper limits of normal. Under aerated lungs likely related to patient body habitus. No consolidation, effusion, or pneumothorax. RAD/Chest 1 View (Portable) IMPRESSION: Under aerated lungs. Reading Location: [place] [id number]
[2025-01-26 23:17] VITALS: BP 167/68; PULSE 95; RESP 18; TEMP 37.7; O2SAT 97; BMI 40.4
[2025-01-26] MEDS: 0.9% Normal Saline (1000mL) 1,000 ML 999 ML IV (23:17)
[2025-01-26 23:24] VITALS: BP 167/68; PULSE 96; RESP 18; TEMP 37.7; O2SAT 97
[2025-01-26 23:55] LABS: Mucous, Urine 0 SEEN /hpf (<or=2+); Squamous Epithelial Cells - UA 0 SEEN /hpf (5-10)
[2025-01-26 23:57] LABS: Color, Urine Yellow (Yellow); Glucose, Dipstick Normal (Normal); Ketone-Dipstick Negative (Negative); Leukocyte Esterase-Dipstick 500 /ul (Negative); Nitrite-Dipstick Negative (Negative); Occult Blood-Urine 150 /ul (Negative); Protein-Dipstick 100 mg/dl (Negative); Specific Gravity, Urine 1.020 (1.002-1.030); Urine Bilirubin Dipstick Negative (Negative)
--- OUTSIDE RECORDS SUMMARY | 2025-01-26 23:57 | XMS RPT_ITS | CCD ---
Author Organization [facility] Care Team Providers Care Sr Risk Management Consultant Name Role Phone Ebonie Sandra N Unavailable [...] SOARES, Lana Vargas Primary Care Provider [phone] Jessenia SOARES, Lauren Swift Unavailable MARIELLE SOARES, DR BIANCA Stevenson Primary Care Physician [phone] MAULIK العلي Attending Kang PALOMARES MD, DR [...] MD, Lana Vargas Primary Care Provider [phone] ISMAEL SOARES, MARIAH DANIELS Primary Care Physician Becky SOARES, Dr. Sun Attending Provider Dr. Dino Pena MD Emergency Provider Ismael SOARES, Dr. Mariah Daniels Primary Care [facility] er Dr. Gregorio Cochran DO Emergency Provider MAULIK العلي DO Attending MARIAH East MD Primary Care Unavail able REFERRING, PHY WO ID Attending DR BIANCA Ansari MD Primary Care Rich Atkinson MD, Dr. Mariah Daniels Primary Care [facility] er Dr. Gregorio Cochran DO Attending Provider Ismael SOARES, Dr. Mariah Daniels Referring Provider Gianna Mi Attending Provider Iris WOODS Dr. Rahsaan Attending Provider Friend , Dr. Monroe Other Provider Gudla, Bianca Primary Care Unavailable Gudla, Bianca Referring Unavailable Karthikeyan Grove Attending Unavailable Fer Simmons Consulting Unavailable FriendFer Attending Unavailable Morehart, Mariah Frances Referring Unavailabl e Morehart, Mariah Frances Primary Care Unavailabl e Dino Pena Attending Unavailable Morehart, Mariah Frances Primary Care Unavailabl e BasaliLauren Attending Unavailable Basali, Ayman Referring Unavailable Gudla, Bianca Primary Care Unavailable Friend, Fer Attending Unavailable Morehart, Mariah Frances Primary Care [...] Primary Care Unavailable FUNMILAYO POPE Referring Unavailable Dr. Rancho Orozco DO Emergency Provider Allergies Allergy Classification Reported Allergen(s) Allergy Type Date of Onset Reaction(s) Facility (20 sources) apricot extract; Translations: [APRICOT] Drug Allergy 5 PT UNSURE OF REACTION [facility] (20 sources) lactose; Translations: [LACTOSE] Drug Allergy 0 [facility] (20 sources) levoFLOXacin; Translations: [LEVOFLOXACIN] Drug Allergy 5 Intolerance [facility] (20 sources) morphine; Translations: [MORPHINE] Drug Allergy 4 Itching [facility] (20 sources) NSAIDs; Translations: [NSAIDS (NON-STEROIDAL ANTI-INFLAMMATO RY DRUG)] Propensity to adverse reactions to drug (disorder) 7 GI Upset [facility] (20 sources) oxyCODONE; Translations: [OXYCODONE] Drug Allergy 8 Intolerance [facility] (20 sources) Phenothiazine; Translations: [PHENOTHIAZINES ] Propensity to adverse reactions to drug (disorder) 4 [facility] (20 sources) predniSONE; Translations: [PREDNISONE] Drug Allergy 5 Unknown [facility] (20 sources) promethazine; Translations: [PROMETHAZINE HCL] Drug Allergy 7 Itching [facility] (20 sources) Quinolones (Antibiotic); Translations: [QUINOLONES] Propensity to adverse reactions to drug (disorder) 4 [facility] (20 sources) magda leaf allergenic extract; Translations: [MAGDA] Drug Allergy 5 [facility] (20 sources) sulindac; Translations: [SULINDAC] Drug Allergy 5 Mental Status Change [facility] (20 sources) traMADol; Translations: [TRAMADOL] Drug Allergy 5 Itching [facility] (3 sources) OTHER; Translations: [OTHER] Propensity to adverse reactions (disorder) 5 AOF [facility] (20 sources) OPIOIDS - MORPHINE ANALOGUES; Translations: [OPIOIDS - MORPHINE ANALOGUES] Propensity to adverse reactions to drug (disorder) 4 [facility] (20 sources) CLEANING SUPPLIES [Other] Propensity to adverse reactions 5 [facility] Work Phone: (20 sources) IVP CONTRAST [Other] Propensity to adverse reactions 5 Intolerance [facility] Work Phone: (7 sources) Bee/Wasp/Ant venom Allergy to substance Anaphylaxis (disorder) [facility] (11 sources) corn extract; Translations: [corn] Drug Allergy 5 Eruption of skin (disorder) [facility] (7 sources) HYDROmorphone; Translations: [hydromorphone] Drug Allergy [facility] (7 sources) Promethazine; Translations: [promethazine] Drug Allergy [facility] (7 sources) Purified Protein Derivative of Tuberculin; Translations: [tuberculin purified protein derivative] Drug Allergy Lactose intolerance [facility] (7 sources) Milk Products Food allergy Eruption of skin (disorder) [facility] (7 sources) Tomatoes Food allergy [facility] (7 sources) Apricots Food allergy Eruption of skin (disorder) [facility] (11 sources) Peas; Translations: [peas] Food allergy 5 Eruption of skin (disorder) [facility] (17 sources) Amoxicillin; Translations: [amoxicillin trihydrate] Drug Allergy 9 [facility] (16 sources) HYDROcodone Drug Allergy 9 Unknown [facility] (17 sources) Shellfish; Translations: [shellfish derived] Propensity to adverse reactions 9 [facility] (17 sources) Iodinated Contrast Media; Translations: [Iodinated Contrast Media] Allergy to substance 9 Hives [facility] (17 sources) potassium clavulanate; Translations: [potassium clavulanate] Propensity to adverse reactions 9 [facility] (3 sources) tomato allergenic extract Drug Allergy 5 Other [facility] (4 sources) BCG (Bacillus Calmette-Zohra ) vacc; Translations: [BCG (Bacillus Calmette-Zohra ) vacc] Allergy to substance 4 Other [facility] (3 sources) bee venom protein (honey bee) Allergy to substance 5 Other [facility] (3 sources) Milk Containing Products (Dairy) Allergy to substance 5 Other [facility] (1 source) HYDROcodone Drug Allergy 5 [facility] (1 source) tomato allergenic extract Drug Allergy 5 [facility] (1 source) Milk Containing Products (Dairy) Drug allergy (disorder) 5 [facility] (1 source) bee venom protein (honey bee) Drug allergy (disorder) 5 [facility] Repository Medications Current Medications Medication Drug Class(es) [...] oral tablet (20 sources) Opioid Agonist Start: 01-25-2025 take 1 tablet by mouth every six hours as needed for pain Oxycodone-Acetamin ophen (Percocet) 5-325 mg tablet Active 1 {tbl} PO EVERY 6 HOURS as needed for pain 20 5 0 January 25, 2025 Closed fracture of proximal end of right tibia and fibula Start: 09-27-2024 End: 11-20-2024 Oxycodone-Acetaminophen (Per cocet) 5-325 mg tablet Discontinued 1 {tbl} PO [...] Start: 03-23-2016 PERCOCET 5-325 MG TABS OXYCODONE-ACETAMINOPHEN [id number] Karthikeyan Hall Start: 03-23-2016 PERCOCET 5-325 MG TABS OXYCODONE-ACETAMINOPHEN [id number] Karthikeyan Rubén Rafael albuterol 0.83 mg/ml inhalation solution (20 sources) [...] vivek (12 sources) Blood-Glucose Se nsor (FREESTYLE ELISA 3 [...] number: 1 clonazePAM 0.5 mg oral tablet (2 sources) Benzodiazepine Start: 11-21-19 25 Clonazepam 0.5 mg [...] to right ankle diabetic ulcer topically 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 DM ulcer COMPOUNDED PRESCRIPTION (20 [...] Bupivacaine 5 %, Amitriptyline 2 % Cranberry (2 sources) Non-Standardized Food Allergenic Extract, Non-Standardized Plant Allergenic Extract Start: 025 take 1 capsule by mouth once daily Cranberry 500 mg capsule Active 500 mg PO DAILY January 20, 2025 12:00am administer with a meal cycloSPORINE 0.5 mg/ml ophthalmic suspension (20 sources) Calcineurin Inhibitor Immunosuppressant Start: Cyclosporine (Restasis) 0.05 % Dropperette Active 1 DRP EACH EYE Q12H July 29, 2021 1:00am Start: 02-01-2017 take 1 drop(s) into the eye(s) twice daily cycloSPORINE (RESTASIS) 0.05 % ophthalmic emulsion 1 Drop twice daily. 0 02/01/2017 Active Comment on above: 1 Drop twice daily. Cyclosporine (Restasis) 0.05 % dropperette (3 sources) Start: 01-30-2024 Cyclosporine (Restasis) 0.05 % dropperette Active 1 NMA EACH EYE Q1January 30, 2024 12:00am 1 ml denosumab 60 [...] Start: 03-23-2016 DEXILANT 60 MG CPDR DEXLANSOPRAZOLE [id number] Karthikeyan Hall Comment on above: Take by mouth. diclofenac sodium 0.01 mg/mg topical gel (20 sources) Nonsteroidal Anti-inflammatory Drug Start: apply 2 g topically every eight hours [...] 1 tablet by jessica th twice daily. Apply to affected ar ea [...] Discontinued Comment on above: Take by mouth. [id number] 0.3 ml EPINEPHrine 1 mg/ml auto-injector (20 [...] Comment on above: [facility] Per psychiatry. esomeprazole 40 mg delayed release oral capsule (6 sources) Proton Pump Inhibitor Start: End: take 1 capsule by mouth once daily before breakfast esomeprazole 40 mg capsule Indications: Esophageal reflux , Chest pain, unspecified Take 1 capsule by mouth daily before breakfast. Selena's Docudose. 30 capsule 11 11/11/2013 01/31/2022 Discontinued Comment on above: Take 1 capsule by mo [facility] daily before breakfast. Selena's Docudose. famotidine 40 mg oral tablet (2 sources) Histamine-2 Receptor Antagonist Start: take 1 tablet by mouth once daily Famotidine 40 mg tablet Active 40 mg PO DAILY January 20, 2025 12:00am Flash Glucose Sensor (Freestyle Elisa 2 Sensor) kit (14 sources) Start: 023 Flash Glucose Sensor (Freestyle Elisa 2 Sensor) [...] on above: Take 1 capsule by mo ut once daily. Fluticasone-Umecli din-Vilanter (14 sources) Start: 12-18-2022 Fluticasone-Um ecl idin-Vilanter (Trelegy Ellipta) 200-62.5-25 mcg blister with device Active 1 NMA INHALATION DAILY December 18, 2022 12:00am Start: 12-18-2022 Fluticasone-Um eclidin-Vilanter (Trelegy Ellipta) 200-62.5-25 mcg blister with device Active 1 INH INHALATION DAILY December 17, 2022 11:00pm Start: 12-18-2022 Fluticasone-Um eclidin-Vilanter (Trelegy Ellipta) 200-62.5-25 mcg blister with device Active 1 INH INHALATION DAILY December 18, 2022 12:00am tfeufropxju-nbuvkkpnd-xmncri er (TRELEGY ELLIPTA) 200-62.5-25 mcg inhalation powder (12 sources) take 1 puff(s) by inhalation once daily iujyyzfivgz-zkwvbyqxm-axlrzbun (TRELEGY ELLIPTA) 200-62.5-25 mcg inhalation powder Inhale 1 Puff as instructed once daily. Active take 1 puff(s) by in halation once daily qlwkdxwawpa-baudyshys-haxyucye (TRELEGY ELLIPTA) 200-62.5-25 mcg inhalation powder Inhale [...] FLEXTO UCH 100 UNIT/ML SOPN INSULIN DEGLUDEC [id number] Karthikeyan Hall Start: 03-23-2016 TRESIBA FLEXTO UCH 100 UNIT/ML SOPN INSULIN DEGLUDEC [id number] Karthikeyan Hall 1.5 ml insulin glargine 300 [...] Solostar) 300 unit/mL (3 mL) insulin pen (5 sources) Start: 11-20-2024 Insulin Glargine U-300 Conc [...] Insulin) 300 unit/mL (1.5 mL) insulin pen (5 sources) Start: 11-20-2024 Insulin Glargi ne U-300 [...] ml insulin lispro 100 unt/ml pen injector (16 sources) Insulin Analog Start: 11-20-2024 Insulin Lispro [...] 2023 12:00am November 20, 2024 3:10pm Insulin Table [place], Disposable, (PEN NEEDLE) 29 x 1/2 ndle [...] spray(s) nasa l route twice daily Ipratropium [place] Active 2 SPRAY INTRANASAL TWICE A DAY [...] Maximum 6 puffs daily. lactobacillus rhamnosus gg [id number] unt oral capsule (3 sources) Start: take 10 capsules by mouth twice daily Lactobacillus Rhamnosus Gg (Culturelle) 10 billion cell capsule Active 1 NMA PO TWICE A DAY November 27, 2023 12:00am lamoTRIgine 150 mg oral tablet (6 sources) Mood Stabilizer, Anti-epileptic Agent Start: End: lamoTRIgine (LAMICTAL) 150 mg tablet Take 1 tablet by mouth twice daily. Per psychiatry. 0 11/17/2013 01/31/2022 Discontinued Comment on above: Take 1 tablet by jessica twice daily. Per psychiatry. levocetirizine dihydrochloride 5 [...] 02-01-2017 take 2 tablets by mo uth every twelve hours as needed loperamide HCl [...] IMODIUM A-D 1 MG/7.5ML LIQD LOPERAMIDE HCL [id number] Karthikeyan Hall Start: 03-23-2016 IMODIUM A-D 1 MG/7.5ML LIQD LOPERAMIDE HCL [id number] Karthikeyan Hall Comment on above: Take 1 capsule by mo uth four times daily as needed. Take 4 mg by mouth t wice daily as needed for diarrhea. loratadine 10 mg oral tablet (14 sources) Start: 3 take 1 tablet by [...] mg by mouth every morning. Magnesium Hydroxide (14 sources) Start: take 1 mL by mouth twice daily [...] 400 (240 Mg) MG TABS MAGNESIUM OXIDE [id number] Karthikeyan Hall Start: 03-23-2016 MAGNESIUM OXID E 400 (240 Mg) MG TABS MAGNESIUM OXIDE [id number] Karthikeyan Hall Comment on above: Take 1 [...] 1 tablet by jessica th once daily. Multivitamins-[place] als-Lutein (CENTRUM SILVER) tab (20 sources) Start: [...] th daily at bedtime. polyethylene glycol 3350 73750 mg powder for oral solution (20 sources) [...] neuropathy Start: 03-23-2016 take 1 capsule by [facility] twice daily Pregabalin 100 mg capsule Active 100 mg PO TWICE A DAY January 16, 2023 12:00am Comment on above: Take 1 capsule by [facility] twice daily. raNITIdine 150 mg oral tablet (20 sources) Histamine-2 Receptor Antagonist Start: 10-06-19 14 take 1 tablet by mouth once daily at bedtime ranitidine 150 mg tablet Indications: Esophageal reflux Take 1 tablet by mouth daily at bedtime. 30 tablet 11 10/05/2013 Active Comment on above: Take 1 tablet by jessica daily at bedtime. simvastatin 20 mg oral [...] Tirzepatide (Mounjaro) 7.5 mg/0.5 mL pen injector (2 sources) Start: 11-21-19 Tirzepatide (Mounjaro) 7.5 mg/0.5 mL [...] Drug Class(es) Dates Sig (Normalized) Sig (Original) Alum-Mag Hydroxide-Simeth (Maalox Maximum Strength) 400-400-40 mg/5 mL suspension (3 sources) Start: 12-18-2022 End: 01-20-2025 take 1 [...] very morning. ampicillin 500 mg oral capsule (2 sources) Penicillin-class Antibacterial Start: 01-20-2025 End: 01-20-2025 take 1 capsule by mouth three times daily Ampicillin 500 mg capsule Discontinued 500 mg PO THREE TIMES A DAY January 20, 2025 12:00am January 20, 2025 12:21pm ARTIFICIAL TEAR SOLUTION (8 sources) Start: 03-23-2016 ARTIFICIAL TEARS 0.1-0.3 % SOLN ARTIFICIAL TEAR SOLUTION [id number] Karthikeyan Hall ARTIFICIAL TEAR SOLUTION (1 source) Start: 03-23-2016 ARTIFICIAL TEARS 0.1-0.3 % SOLN ARTIFICIAL TEAR SOLUTION [id number] Karthikeyan Hall aspirin 81 mg chewable tablet (15 sources) Nonsteroidal Anti-inflammatory Drug Start: 03-23-2016 ASPIRIN 81 MG CHEW ASPIRIN [id number] Karthikeyan Hall Start: 11-03-2013 End: 01-31-2022 take [...] once daily. baclofen 5 mg oral tablet (14 sources) gamma-Aminobutyric Acid-ergic Agonist Start: 12-18-2022 End: [...] MAXIMUM STRENGTH 525 MG/15ML SUSP BISMUTH SUBSALICYLATE [id number] Karthikeyan [place] Rafael Start: 03-23-2016 BISMATROL MAXI MUM STRENGTH 525 MG/15ML SUSP BISMUTH SUBSALICYLATE [id number] Karthikeyan Hall Bupivacaine (1 source) Amide Local Anesthetic Start: 12-13-2021 End: 12-13-2021 bupivacaine HCl 2.5 mg injection (SENSORCAINE) 168 hr buprenorphine 0.005 mg/hr transdermal system (16 sources) Partial Opioid Agonist Start: 03-08-2019 End: 03-11-2019 Buprenorphine 1 EACH patch weekly Discontinued 1 NMA TD EVERY WEEK March 08, 2019 12:00am March 11, 2019 3:35pm Check with primary doctor Start: 03-08-2019 End: 03-11-2019 Buprenorphine Discontinued 1 EACH TD EVERY WEEK March 08, 2019 12:00am March 11, 2019 3:35pm busPIRone hydrochloride 5 mg oral tablet (3 sources) Start: 11-27-2023 End: 11-20-2024 take 1 [...] daily. cyclobenzaprine hydrochloride 10 mg oral tablet (16 sources) Muscle Relaxant Start: 07-29-2021 End: 12-18-2022 take 1 tablet by mouth once daily Cyclobenzaprine 10 mg Tablet Discontinued 10 mg PO DAILY July 29, 2021 1:00am December 18, 2022 1:27pm Cyclosporine (Restasis) 0.05 % Dropperette (15 sources) Start: 07-29-2021 End: 01-30-2024 Cyclosporine (Restasis) 0.05 % Dropperette Discontinued 1 NMA EACH EYE Q1July 29, 2021 1:00am January 30, 2024 11:18am Start: 07-29-2021 Cyclosporine ( Restasis) 0.05 % Dropperette Active 1 DRP EACH EYE Q1July 29, 2021 12:00am Start: 07-29-2021 Cyclosporine ( Restasis) 0.05 % Dropperette Active 1 DRP EACH EYE Q1July 29, 2021 1:00am docusate sodium 100 mg oral capsule (16 sources) Start: 01-27-2018 End: 06-19-2018 take 1 [...] Start: 03-23-2016 TRULICITY 1.5 MG/0.5ML SOPN DULAGLUTIDE [id number] Karthikeyan Hall Start: 03-23-2016 TRULICITY 1.5 MG/0.5ML SOPN DULAGLUTIDE [id number] Karthikeyan Hall dyclonine hydrochloride 2 mg oral [...] ea. 0.85 ml exenatide 2.35 mg/ml auto-injector (3 sources) GLP-1 Receptor Agonist Start: 11-27-2023 End: 01-30-2024 Exenatide Microspheres (Byduretrenton Flanagan) 2 mg/0.85 mL auto-injector Discontinued 2 mg SC MO November 27, 2023 12:00am January 30, 2024 11:17am ferrous sulfate 325 mg oral tablet (16 sources) Start: 01-27-2018 End: 03-08-2019 take 1 [...] Start: 11-22-2020 take 1 dose nasal ro cahto once daily in the morning Flonase 50 mcg/inh nasal spray Dose = 2 spray(s), Nostril, each, qAM, 0 Refill(s) Start Date: 02/14/21 Status: Ordered Repeat number: 1 Start: 02-01-2017 take 1 spray(s) nasa l route once daily fluticasone (FLONASE) 50 mcg/actuation nasal spray Use 1 [place] in each nostril once daily. . 0 02/01/2017 Active Start: 03-23-2016 FLONASE ALLERG Y RELIEF 50 MCG/ACT SUSP FLUTICASONE PROPIONATE [id number] Karthikeyan Hall Start: 03-23-2016 FLONASE ALLERG Y RELIEF 50 MCG/ACT SUSP FLUTICASONE PROPIONATE [id number] Karthikeyan Hall Start: 09-01-2014 take 2 spray(s) nasa l route once daily fluticasone (FLONASE) 50 mcg/actuation nasal spray Indications: Rhinitis Use 2 Sprays in each nostril once daily. 1 Bottle 11 09/01/2014 Active Comment on above: Use 2 Sprays in each nostril once daily. Use 1 [place] in each nostril once daily. . formoterol [...] Fumarate 20 MCG/2 ML solution for nebulization (3 sources) Start: 03-08-2019 End: 12-18-2022 take 20 [...] 03-23-2016 LACTAID 3000 U NIT TABS LACTASE [id number] Karthikeyan Hall LINACLOTIDE (9 sources) Guanylate Cyclase-C Agonist Start: 03-23-2016 LINZESS 145 MCG CAPS LINACLOTIDE [id number] Karthikeyan Hall Start: 03-23-2016 LINZESS 145 MC G CAPS LINACLOTIDE [id number] Karthikeyan Hall LORazepam 1 mg oral tablet [...] as needed. melatonin 3 mg oral capsule (14 sources) Start: End: take 1 capsule by [...] mouth twice daily with meals. 60 tablet 10/05/2013 Active Comment on above: Take 1 tablet by jessica twice daily with meals. naloxone hydrochloride 0.4 [...] ROUTES) route. naproxen 500 mg oral tablet (16 sources) Nonsteroidal Anti-inflammatory Drug Start: End: take 1 tablet by mouth twice daily as needed Naproxen 500 MG tablet Discontinued 500 mg PO TWICE DAILY NEEDED January 21, 2018 12:00am January 27, 2018 12:12pm ondansetron 4 mg oral tablet (20 sources) Serotonin-3 Receptor Antagonist Start: End: take 1 tablet by mouth every six hours as needed for nausea Ondansetron Hcl (Zofran) 4 mg Tablet Discontinued 4 mg PO EVERY 6 HOURS as needed for NAUSEA July 29, 2021 1:00am December 18, 2022 1:44pm Comment on above: Take 4 mg by mouth e very 6 hours as needed. oxybutynin chloride 5 mg oral tablet (2 sources) Cholinergic Muscarinic Antagonist Start: End: take 1 [...] chloride 20 meq extended release oral tablet (13 sources) Start: End: take 1 tablet by [...] Start: 03-23-2016 SEROQUEL XR 30 0 MG [id number] QUETIAPINE FUMARATE [id number] Karthikeyan Montana Rafael Start: 03-23-2016 SEROQUEL XR 20 0 MG [id number] QUETIAPINE FUMARATE [id number] Karthikeyan Montana Rafael Start: 03-23-2016 SEROQUEL XR 20 0 MG [id number] QUETIAPINE FUMARATE [id number] Karthikeyan Montana Rafael Start: 03-23-2016 SEROQUEL XR 30 0 MG [id number] QUETIAPINE FUMARATE [id number] Karthikeyan [place] Rafael 0.25 mg, 0.5 mg dose 1.5 ml semaglutide 1.34 mg/ml pen injector (3 sources) Start: 01-30-2024 End: 11-20-2024 Semaglutide (Ozempic) 0.25 m g or 0.5 mg(2 mg/1.5 mL) pen injector Discontinued 0.5 mg SC January 30, 2024 12:00am November 20, 2024 3:15pm for 4 weeks Semaglutide (3 sources) Start: 01-30-2024 End: 11-20-2024 Semaglutide (Ozempic) [...] Mx. traMADol hydrochloride 50 mg oral tablet (16 sources) Opioid Agonist Start: 8 End: 8 take 1 tablet by mouth every six hours as needed for pain Tramadol 50 MG tablet Discontinued 50 mg PO EVERY 6 HOURS NEEDED as needed for Pain January 23, 2018 12:00am January 27, 2018 12:12pm traZODone hydrochloride 150 mg oral tablet (9 sources) Serotonin Reuptake Inhibitor Start: 6 TRAZODONE HCL 150 MG TABS TRAZODONE HCL [id number] Karthikeyan Hall vortioxetine 20 mg oral tablet (9 sources) Start: 6 TRINTELLIX 20 MG TABS VORTIOXETINE R [id number] Karthikeyan Hall zolpidem tartrate 10 mg oral tablet (20 sources) gamma-Aminobutyric Acid-ergic Agonist Start: 1 End: 3 take 1 tablet by mouth at bedtime as needed for sleep Zolpidem (Ambien) 10 mg Tablet Discontinued 10 mg PO AT BEDTIME as needed for Sleep July 29, 2021 1:00am December 18, 2022 1:46pm Problems Active Problems Problem Classification Problem Date Documented Date Episodic/Chronic Abdominal pain (20 sources) Right flank pain; Translations: [Unspecified abdominal pain] Onset: 5 11-24-2023 Episodic Acute cerebrovascular disease (16 sources) Cerebrovascular accident; Translations: [Cerebral infarction, unspecified] 03-08-2019 Chronic Anxiety disorders (16 sources) Anxiety; Translations: [Anxiety disorder, unspecified] 06-19-2018 Chronic Asthma (20 sources) Unspecified asthma, uncomplicated; Translations: [Asthma, unspecified type, unspecified] 04-13-2005 Chronic Calculus of urinary tract (8 sources) Personal history of urinary calculi; Translations: [History of calculus of kidney] Onset: 7 09-23-2023 Episodic Chronic obstructive pulmonary disease and bronchiectasis (17 sources) Chronic obstructive lung disease; Translations: [Chronic [...] without bleeding] 04-13-2005 Chronic E Codes: Fall (16 sources) Fall on same level from slipping, [...] of ankle, closed] 12-18-2022 Episodic Fracture of lower limb (1 source) Closed fracture of tibia AND fibula; Translations: [Unspecified fracture of upper end of right tibia, initial encounter for closed fracture] 01-25-2025 Episodic Fracture of neck of femur (hip) (16 sources) Closed intertrochanteric fracture; Translations: [Displaced intertrochanteric fracture of left femur, initial encounter for closed fracture] 03-09-2019 Episodic Comment on above: minimally displaced and impacted intertrochanteric fracture with sub troch extension Genitourinary symptoms and ill-defined conditions (8 sources) Proteinuria; Translations: [Proteinuria, unspecified] Onset: 7 Resolved: 8 01-23-2024 Episodic Headache; including migraine (3 sources) Headache; Translations: [Headache] 03-30-2024 Episodic Infective arthritis and osteomyelitis (except that caused by tuberculosis or sexually transmitted disease) (9 sources) Osteomyelitis of right ankle; Translations: [Osteomyelitis, unspecified] Onset: 4 10-17-2023 Chronic Mood disorders (16 sources) Bipolar disorder; Translations: [Bipolar disorder, unspecified] 03-08-2019 Chronic Nonspecific chest pain (14 sources) Chest pain; Translations: [Chest pain, unspecified] Onset: 8 Resolved: 2 Episodic Nutritional deficiencies (1 source) Vitamin D deficiency; Translations: [Vitamin D deficiency, unspecified] Chronic Nutritional deficiencies (16 sources) Iron deficiency; Translations: [Iron deficiency] 06-19-2018 Episodic Osteoarthritis (1 source) Degenerative joint disease involving multiple joints; Translations: [Polyosteoarthritis, unspecified] Chronic Osteoporosis (20 sources) Osteoporosis; Translations: [Other osteoporosis without current pathological fracture] Onset: 2 09-12-2021 Chronic Other aftercare (3 sources) Drug therapy finding; Translations: [halfway (current) use of anticoagulants] 09-27-2024 Episodic Other aftercare (1 source) Encounter for follow-up examination after completed treatment for conditions other than malignant neoplasm; Translations: [Encounter for follow-up examination after completed treatment for conditions other than malignant neoplasm] Onset: Episodic Other circulatory disease (16 sources) History of cerebrovascular accident; Translations: [Personal history of transient ischemic attack (TIA), and cerebral infarction without residual deficits] 06-19-2018 Episodic Other connective tissue disease (1 source) Myofascial pain; Translations: [Myalgia, other site] Episodic Other connective tissue disease (16 sources) Pain in lower limb; Translations: [Pain in right leg] 08-07-2021 Episodic Other connective tissue disease (1 source) Pain in bilateral legs; Translations: [Pain in right leg] Episodic Other connective tissue disease (4 sources) Chronic pain of right foot; Translations: [Pain in right toe(s)] 11-21-2023 Episodic Other connective tissue disease (4 sources) Chronic pain of left foot; Translations: [Pain in left toe(s)] 11-21-2023 Episodic Other connective tissue disease (1 source) Pain in left toe(s); Translations: [Pain in limb] 11-21-2023 Episodic Other connective tissue disease (1 source) Pain in right toe(s); Translations: [Pain in limb] 11-21-2023 Episodic Other connective tissue disease (3 sources) Pain of right lower leg; Translations: [Pain in right lower leg] 12-19-2023 Episodic Other diseases of bladder and urethra (20 sources) Disorder of bladder; Translations: [Other specified disorders of bladder] Onset: 0 01-11-2010 Chronic Other diseases of kidney and ureters (7 sources) Renal mass; Translations: [Other specified disorders of kidney and ureter] 11-24-2023 Chronic Other gastrointestinal disorders (6 sources) Constipation; Translations: [Constipation, unspecified] 11-21-2024 Episodic Other gastrointestinal disorders (2 sources) Constipation, unspecified; Translations: [Constipation, unspecified] Onset: 5 Episodic Other injuries and conditions due to external causes (1 source) Traumatic AND/OR non-traumatic injury; Translations: [Other injury of unspecified body region, initial encounter] Onset: 3 Episodic Other injuries and conditions due to external causes (4 sources) Delayed healing of wound; Translations: [Other injury of unspecified body region, subsequent encounter] 11-14-2023 Episodic Other nervous system disorders (16 sources) Chronic pain; Translations: [Other chronic pain] 06-19-2018 Chronic Other nervous system disorders (1 source) Skin sensation disturbance; Translations: [Unspecified disturbances of skin sensation] Episodic Other non-traumatic joint disorders (16 sources) Hip pain; Translations: [Pain in left hip] 03-08-2019 Episodic Other skin disorders (4 sources) Dystrophia unguium; Translations: [Nail dystrophy] 11-21-2023 Episodic Other skin disorders (1 source) Nail dystrophy; Translations: [Other specified diseases of nail] 11-21-2023 Episodic Other upper respiratory disease (20 sources) Rhinitis; Translations: [Chronic rhinitis] Onset: 2 03-10-2012 Chronic Residual codes; unclassified (1 source) Presence of other specified functional implants; Translations: [Implantable intrathecal infusion pump present] Chronic Residual codes; unclassified (15 sources) Tobacco user; Translations: [Tobacco use] 11-22-2022 Episodic Residual codes; unclassified (4 sources) Bilateral lower limb edema; Translations: [Localized edema] 11-24-2023 Episodic Residual codes; unclassified (1 source) Other specified postprocedural states; Translations: [Other specified postprocedural states] Onset: 5 Episodic Schizophrenia and other psychotic disorders (20 sources) Schizophrenia; Translations: [Schizophrenia, unspecified] Onset: 6 03-26-2006 Chronic Screening and history of mental health and substance abuse codes (20 sources) Tobacco use and exposure - finding; Translations: [Personal history of nicotine dependence] Onset: 07-23-200 8 Resolved: 2 07-10-2021 Episodic Spondylosis; intervertebral disc disorders; other back problems (13 sources) Lumbosacral spondylosis without myelopathy; Translations: [Spondylosis without myelopathy or radiculopathy, lumbosacral region] Onset: 5 Resolved: 3 02-14-2021 Chronic Substance-related disorders (1 source) Nicotine dependence, cigarettes, uncomplicated; Translations: [Nicotine dependence, cigarettes, uncomplicated] Onset: Chronic Superficial injury; contusion (16 sources) Contusion of hip; Translations: [Contusion of right hip, initial encounter] 08-07-2021 Episodic Unclassified (4 sources) Aftercare ; Translations: [Encounter for other orthopedic aftercare] Onset: 7 12-19-2016 Unclassified (1 source) Proximal tibia and fibula fracture Past or Other Problems Problem Classification Problem [...] incontinence] Onset: 06-16-2007 Resolved: 06-17-2013 06-17-2013 Chronic Other aftercare (8 sources) Strain of muscle(s) [...] [Tobacco use disorder] Onset: 03-15-2024 12-12-2022 Episodic Spondylosis; intervertebral disc disorders; other back [...] 01-21-2025 FINGERSTICK GLU 279 mg/dL High 74-106 [facility] Comment on above: Result Comment: PAO MARS OF PATIENT CARE PER NURSING PROTOCOL Performed By: #### L 400.0001 #### [facility] [address] [place], [address] EGD Reporton 01-21-2025 EGD Report [facility] Medical Records Department [address] [place] [address] EGD Report MR#: [id number] Acct: [id number] Name: JULIANA MERIDA Rep #: [id number] : 1960 64 From: Fer Simmons DO PCP: Mariah Atkinson MD Status:REG [facility] Patient Name: Juliana Merida Procedure Date: 01/21/2025 [...] pathology results. Procedure Code(s): --- Professional --- 32033, Small intestinal endoscopy, enteroscopy beyond second portion of duodenum, not including ileum; with biopsy, single or multiple CPT copyright 2021 [employer]. All rights reserved. The codes documented in this report are preliminary and upon adjunct business instructor review may be revised to meet current compliance requirements. Fer Simmons DO 01/21/2025 9:17:41 AM This report has been signed electronically. Number of Addenda: 0 Note Initiated On: 01/21/2025 8:38 AM 01/21/25916 Date (more content not included)... Normal [facility] Gl[facility] at [facility] deOrdered By: Fer Simmons on 01-21-2025 Glucose [Mass/Vol] 279 mg/dL High 74-106 [facility] Comment on above: MANAGEMENT OF PATIEN T CARE PER NURSING PROTOCOL MR/POSTOP.Caro 01-21-2025 MR/POSTOP.[facility] Medical Records Department [address] [place] [address] Anesthesia Postop Eval I 01/21/25911 MR#: [id number] Acct: [id number] Name: JULIANA MERIDA Rep #: [id number] : 1960 64 From: Yosef Camp PCP: Mariah Atkinson MD Status:REG SDC Y Race: C Location: [place] [address] Anesthesia: Postop Eval I Current Vital Signs [...] Eval 1 completed: Yes 01/21/25912 Date Yosef Camp Cosigner Signature: Date CC: Signed Normal [facility] [id number] 01-21-2025 MR/POSTOPAN2 [facility] Medical Records Department [address] [place] [address] Anesthesia Postop Eval II 01/21/2549 MR#: [id number] Acct: [id number] Name: JULIANA MERIDA Rep #: [id number] : 1960 64 From: Kimmie Serna CRNA PCP: Mariah Atkinson MD Status:REG [facility] Y Race: C Location: [place] [address] Anesthesia Postop Eval I Sum Postop Eval [...] No Vomiting: No Complications Anesthesia Complication: No 01/21/25948 Date Kimmie Nolasco Signature: Date CC: Signed [facility] 01-20-2025 CNPN Telephone (RHBATH) -------- JULIANA MERIDA ([id number]) 1960 F Date Time Provider Department 01/20/25 FUNMILAYO POPE [facility] During your visit today, we recorded the [...] Itching Date Reviewed: 07/27/2024 Reviewed by: Rufina Pandya RN - Fully Assessed Prescriptions as of 01/20/2025 [...] hours as needed for cough. 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 - insulin glargine,hum.rec.anlog (TOUJEO MAX U-300 SOLOSTAR SUBCUTANEOUS) Inject subcutaneously as directed. - djteidagemz-nwalarbpc-vy lanter (TRELEGY ELLIPTA) 200-62.5-25 mcg inhalation powder [...] (FLONASE) 50 mcg/actuation nasal spray Use 1 [place] in each nostril once daily. . - pregabalin (LYRICA) 100 mg capsule Take 1 capsule by mouth (more content not included)... Normal [facility] Gastroenterology Visit Repor ton 11-20-2024 Gastroenterology Visit Report [facility] [address] [place] [address] OFFICE VISIT Date of Service: 11/20/24 MR#: [id number] Acct: [id number] Name: JULIANA MERIDA Rep #: [id number] : 1960 Provider: KALEIGH sim Age/Sex: 64/F Location[place] [facility] Status: Signed Intake Vital Signs 09/27/24 01:36 [...] Q12H 01/12 (more content not included)... Normal [facility] Abdomen/Pelvis without Conto n 09-27-2024 Abdomen/Pelvis without Cont [facility] Imaging Services [address] [place], [place] [address] Abdomen/Pelvis without Cont MR#: [id number] Acct: [id number] Name: JULIANA MERIDA Rep #: [id number] : 1960 F 63 From: Jaleel Loaiza MD PCP: Mariah Atkinson MD Status: REG ER Study: Abdomen/Pelvis without Cont Date of Exam: 09/12 01/06 Exam# [id number] Ordering Dr: Gregorio Cochran DO PROCEDURE: ABDOMEN/PELVIS [...] abdominal and pelvic viscera. There is now lwba-kyfhdeb-wjeg-right mild basilar patchy ill-defined ground-glass opacities of [...] dilation or free air. Status post appendectomy. [place] artifact from spinal stimulator device. Aortoiliac atherosclerotic calcification. No abdominal aortic aneurysm. The bladder appears within limits. No free fluid seen. Status post hysterectomy. The ovaries appear within limits on noncontrast imaging. [place] artifact from left femoral gamma nail. Small fat containing left inguinal hernia without stranding again noted. CT/Abdomen/Pelvis without Cont IMPRESSION: There is now tydb-loqfwmq-szyd-right mild basilar patchy ill-defined ground-glass opacities of [...] the liver. Status post cholecystectomy. Reading Location: [facility] CC: Mariah Atkinson MD; Dr. Gregorio Cochran DO Lacing Cutter: Signed Normal [facility] Absolute lymphocyte countOrd ered By: Gregorio Cochran on 09-27-2024 Lymphocytes Auto (Unsp spec) [#/Vol] 2.73 10*3/uL 0.83-4.51 [facility] Absolute neutrophil countOrd ered By: Gregorio Cochran on 09-27-2024 Neutrophils (Bld) [#/Vol] 6.8 10*3/uL 2.0-7.7 [facility] Anion gap in Serum or Plasma Ordered By: Gregorio Cochran on 09-27-2024 Anion gap [Moles/Vol] 10 mmol/L 5-15 [facility] Automated lymphocyte count a s percentage of total leukocytesOrdered By: Gregorio Cochran on 09-27-2024 Lymphocytes/100 WBC Auto (Unsp spec) 25.9 % 19- [facility] BUN/creatinine ratioOrdered By: Gregorio Cochran on 09-27-2024 Urea nitrogen/Creatinine [Mass ratio] 12.7 mg/mg - [facility] Basic Metabolic Profile (BMP )on 09-27-2024 BUN/CRE 12.7 RATIO Normal - [facility] Comment on above: Performed By: #### L 400.0001 #### [facility] [address] [place], [address] Calcium [Mass/Vol] 9.5 mg/dL Normal 7.6-11.0 [facility] Comment on above: Performed By: #### L 400.0001 #### [facility] [address] [place], [address] Chloride [Moles/Vol] 99 mmol/L Normal 98-108 [facility] Comment on above: Performed By: #### L 400.0001 #### [facility] [address] [place], [address] CO2 [Moles/Vol] 27.1 mmol/L Normal 21.0-32.0 [facility] Comment on above: Performed By: #### L 400.0001 #### [facility] [address] [place], [address] Creatinine [Mass/Vol] 1.37 mg/dL High 0.70-1.20 [facility] Comment on above: Performed By: #### L 400.0001 #### [facility] [address] [place], [address] GAP 10 Normal 5-15 [facility] Comment on above: Performed By: #### L 400.0001 #### [facility] [address] [place], [address] GFR/1.73 sq M.predicted among non-blacks MDRD (S/P/Bld) [Vol rate/Area] 44 mL/min/{1.73_m2} Low >60 [facility] Comment on above: Result Comment: mL/m in/1.73m2 CKD-EPI Creatinine Equation (2020) Performed By: #### L 400.0001 #### [facility] [address] [place], [address] Glucose [Mass/Vol] 254 mg/dL High 70-99 [facility] Comment on above: Performed By: #### L 400.0001 #### [facility] [address] [place], [address] Potassium [Moles/Vol] 4.0 mmol/L Normal 3.3-5.1 [facility] Comment on above: Performed By: #### L 400.0001 #### [facility] [address] [place], [address] Sodium [Moles/Vol] 136 mmol/L Normal 133-145 [facility] Comment on above: Performed By: #### L 400.0001 #### [facility] [address] [place], [address] Urea nitrogen [Mass/Vol] 17 mg/dL Normal 4-19 [facility] Comment on above: Performed By: #### L 400.0001 #### [facility] [address] [place], [address] Basophil percentageOrdered B y: Gregorio Cochran on 09-27-2024 Basophils/100 WBC (Bld) 0.5 % 0-1 [facility] Bilirubin Test strip Ql (U)O rdered By: Gregorio Cochran on 09-27-2024 Bilirubin Ql (U) Negative Negative [facility] CBC W/Diff, Automatedon - Absolute Lymph 2.73 X10 3/uL Normal 0.83-4.51 [facility] Comment on above: Performed By: #### L 400.0001 #### [facility] [address] [place], [address] Absolute Neut 6.8 X10 3/uL Normal 2.0-7.7 [facility] Comment on above: Performed By: #### L 400.0001 #### [facility] [address] [place], [address] Basophils/100 WBC (Bld) 0.5 % Normal 0-1 [facility] Comment on above: Performed By: #### L 400.0001 #### [facility] [address] [place], [address] Eosinophils/100 WBC (Bld) 0.8 % Normal 0-5 [facility] Comment on above: Performed By: #### L 400.0001 #### [facility] [address] [place], [address] Erythrocyte distribution width (RBC) [Ratio] 13.6 % Normal 11.6-14.6 [facility] Comment on above: Performed By: #### L 400.0001 #### [facility] [address] [place], [address] Hematocrit (Bld) [Volume fraction] 43.9 % Normal 37-47 [facility] Comment on above: Performed By: #### L 400.0001 #### [facility] [address] [place], [address] Hemoglobin (Bld) [Mass/Vol] 14.2 g/dL Normal 12.0-15.0 [facility] Comment on above: Performed By: #### L 400.0001 #### [facility] [address] [place], [address] IG% 0.500 Normal 0.0-0.9 [facility] Comment on above: Result Comment: IG% - Immature Granulocytes (promyelocytes, myelocytes and metamyelocytes) > 1% indicates that a LEFT SHIFT is Present. Performed By: #### L 400.0001 #### [facility] [address] [place], [address] Lymphocytes/100 WBC (Bld) 25.9 % Normal 19-41 [facility] Comment on above: Performed By: #### L 400.0001 #### [facility] [address] [place], [address] MCH (RBC) [Entitic mass] 29.3 pg Normal 27.0-32.0 [facility] Comment on above: Performed By: #### L 400.0001 #### [facility] [address] [place], [address] MCHC (RBC) [Mass/Vol] 32.3 g/dL Normal 32-36 [facility] Comment on above: Performed By: #### L 400.0001 #### [facility] [address] [place], [address] MCV (RBC) [Entitic vol] 90.7 fL Normal 81-99 [facility] Comment on above: Performed By: #### L 400.0001 #### [facility] [address] [place], [address] Monocytes/100 WBC (Bld) 7.7 % Normal 0-10 [facility] Comment on above: Performed By: #### L 400.0001 #### [facility] [address] [place], [address] Neutrophils/100 WBC (Bld) 64.6 % Normal 47-70 [facility] Comment on above: Performed By: #### L 400.0001 #### [facility] [address] [place], [address] Nucleated RBC (Bld) [#/Vol] 0 10*3/uL Normal 0-5 [facility] Comment on above: Performed By: #### L 400.0001 #### [facility] [address] [place], [address] Platelet mean volume (Bld) [Entitic vol] 10.1 fL Normal 6.2-12.0 [facility] Comment on above: Performed By: #### L 400.0001 #### [facility] [address] [place], [address] Platelets (Bld) [#/Vol] 214 10*3/uL Normal 150-450 [facility] Comment on above: Performed By: #### L 400.0001 #### [facility] [address] [place], [address] RBC (Bld) [#/Vol] 4.84 10*6/uL Normal 4.2-5.4 [facility] Comment on above: Performed By: #### L 400.0001 #### [facility] [address] [place], [address] RDW SD 44.8 fl High 35.1-43.9 [facility] Comment on above: Performed By: #### L 400.0001 #### [facility] [address] [place], [address] WBC (Bld) [#/Vol] 10.5 10*3/uL Normal 4.4-11.0 [facility] Comment on above: Performed By: #### L 400.0001 #### [facility] [address] [place], [address] Carbon dioxide, total [Moles /volume] in Central venous bloodOrdered By: Gregorio Cochran on 09-27-2024 CO2 [Moles/Vol] 27.1 mmol/L 21.0-32.0 [facility] Chloride assayOrdered By: Miguel Cochran on 09-27-2024 Chloride [Moles/Vol] 99 mmol/L 98-108 [facility] Emergency Department Summary on 09-27-2024 Emergency Department Summary [facility] Medical Records Department [address] [place] [address] Emergency Department Summary 09/27/24 MR#: [id number] Acct: [id number] Name: JULIANA MERIDA YANELI Rep #: [id number] : 1960 63 From: Gregorio Cochran DO PCP: Mariah Atkinson MD Status:DEP ER Location: ED HPI History of Present Illness Chief Complaint: Flank Pain Informant: patient and EMS Narrative Narrative: 63-year-old female from [facility] at [facility] presenting to the emergency room via EMS [...] She denies any dysuria frequency or hematuria PFSH PFSH Medical History Lives in assisted Hx of fracture of hip Wears glasses [...] bisacodyl 10 mg rectal suppository 10 mg [place] .Q24 PRN PRN constipati on 12/18/22 Unknown History (Dulcolax (bisacodyl)) bisacodyl 5 mg tablet,delayed 5 mg PO Q8H PRN PRN constipation 0 12/18/22 Unknown History release (Dulcolax (bisacodyl)) cholecalciferol (vitamin D3) 125 125 mcg PO DAILY 12/18/22 Unknown History mcg (5,000 unit) capsule diclofenac sodium 1 % topical gel 2 g topical Q8H PRN PRN pain 060 01/04 Unknown History epinephrine 0.3 mg/0.3 mL [...] 3 mg (more content not included)... Normal [facility] Eosinophil percentageOrdered By: Gregorio Cochran on 09-27-2024 Eosinophils/100 WBC (Bld) 0.8 % 0-5 [facility] Epithelial cells.squamous LM Ql (Urine sed)Ordered By: Gregorio Cochran on 09-27-2024 Epithelial cells.squamous LM.HPF (Urine sed) [#/Area] 0 /[HPF] 5-10 [facility] Erythrocyte distribution wid th ratioOrdered By: Gregorio Cochran on 09-27-2024 Erythrocyte distribution width (RBC) [Ratio] 13.6 % 11.6-14.6 [facility] Erythrocyte distribution wid th standard deviationOrdered By: Gregorio Cochran on 09-27-2024 Erythrocyte distribution width (RBC) [Entitic vol] 44.8 fL High 35.1-43.9 [facility] Erythrocyte distribution width (RBC) [Ratio] 44.8 fl High 35.1-43.9 [facility] GFR/1.73 sq M.predicted augustin g non-blacks MDRD (S/P/Bld) [Vol rate/Area]Ordered By: Gregorio Cochran on 09-27-2024 Estimated GFR (MDRD) Non-Af Amer 44 Low >60 [facility] Comment on above: mL/min/1.73m2 CKD-EP I Creatinine Equation (2020) Glomerular filtration rate ( GFR) estimation/1.73 sq m using serum, plasma, or whole bOrdered By: Gregorio Cochran on 09-27-2024 GFR/1.73 sq M.predicted among non-blacks MDRD (S/P/Bld) [Vol rate/Area] 44 mL/min/{1.73_m2} Low >60 [facility] Comment on above: mL/min/1.73m2 CKD-EP I Creatinine Equation (2020) Glucose Ql (U)Ordered By: Miguel Cochran on 09-27-2024 Urine Glucose (UA) Normal mg/dl Normal [facility] Hematocrit Auto (Bld) [Volum e fraction]Ordered By: Gregorio Cochran on 09-27-2024 Hematocrit (Bld) [Volume fraction] 43.9 % 37-47 [facility] Hemoglobin measurementOrdere d By: Gregorio Cochran on 09-27-2024 Hemoglobin (Bld) [Mass/Vol] 14.2 g/dL 12.0-15.0 [facility] Immature granulocytes/100 WB C Auto (Bld)Ordered By: Gregorio Cochran on 09-27-2024 Immature granulocytes/100 WBC (Bld) 0.500 % 0.0-0.9 [facility] Comment on above: IG% - Immature Granu locytes (promyelocytes, myelocytes and metamyelocytes) > 1% indicates that a LEFT SHIFT is Present. Ketones Test strip Ql (U)Ord ered By: Gregorio Cochran on 09-27-2024 Ketones Ql (U) Negative Negative [facility] Lymphocytes Auto (Unsp spec) [#/Vol]Ordered By: Gregorio Cochran on 09-27-2024 Lymphocytes (Bld) [#/Vol] 2.73 10*3/uL 0.83-4.51 [facility] Lymphocytes/100 WBC Auto (Un sp spec)Ordered By: Gregorio Cochran on 09-27-2024 Lymphocytes/100 WBC (Bld) 25.9 % 19-41 [facility] MCV (mean corpuscular volume ) determinationOrdered By: Gregorio Cochran on 09-27-2024 MCV (RBC) [Entitic vol] 90.7 fL 81-99 [facility] Mean corpuscular hemoglobin (MCH) determinationOrdered By: Gregorio Cochran on 09-27-2024 MCH (RBC) [Entitic mass] 29.3 pg 27.0-32.0 [facility] Mean corpuscular hemoglobin concentration (MCHC) determinationOrdered By: Gregorio Cochran on 09-27-2024 MCHC (RBC) [Mass/Vol] 32.3 g/dL 32-36 [facility] Mean platelet volume determi nationOrdered By: Gregorio Cochran on 09-27-2024 Platelet mean volume (Bld) [Entitic vol] 10.1 fL 6.2-12.0 [facility] Microscopic analysis of urin e for red blood cells (RBC)Ordered By: Gregorio Cochran on 09-27-2024 Microscopic analysis of urine for red blood cells (RBC) 0-5 SEEN /hpf 0-5 [facility] Urine RBC 0-5 SEEN /hpf 0-5 [facility] Monocyte percentageOrdered B y: Gregorio Cochran on 09-27-2024 Monocytes/100 WBC (Bld) 7.7 % 0-10 [facility] Mucus LM Ql (Urine sed)Order ed By: Gregorio Cochran on 09-27-2024 Mucus Ql (Urine sed) 0 SEEN /hpf [facility] Neutrophil percentageOrdered By: Grgeorio Cochran on 09-27-2024 Neutrophils/100 WBC (Bld) 64.6 % 47-70 [facility] Nitrite Test strip Ql (U)Ord ered By: Gregorio Cochran on 09-27-2024 Nitrite Ql (U) Negative Negative [facility] Nucleated red blood cell per centageOrdered By: Gregorio Cochran on 09-27-2024 Nucleated RBC/100 WBC (Bld) [Ratio] 0 % 0-5 [facility] Platelet countOrdered By: Miguel Cochran on 09-27-2024 Platelets (Bld) [#/Vol] 214 10*3/uL 150-450 [facility] Potassium (Unsp spec) [Mass/ Vol]Ordered By: Gregorio Cochran on 09-27-2024 Potassium [Moles/Vol] 4.0 mmol/L 3.3-5.1 [facility] Potassium measurement (mass/ volume)Ordered By: Gregorio Cochran on 09-27-2024 Potassium (Unsp spec) [Mass/Vol] 4.0 mmol/L 3.3-5.1 [facility] Protein Test strip Ql (U)Ord ered By: Gregorio Cochran on 09-27-2024 Protein Ql (U) Negative Negative [facility] RBC Auto (Bld) [#/Vol]Ordere d By: Gregorio Cochran on 09-27-2024 RBC (Bld) [#/Vol] 4.84 10*6/uL 4.2-5.4 [facility] Serum creatinine measurement (mass/volume)Ordered By: Gregorio Cochran on 09-27-2024 Creatinine [Mass/Vol] 1.37 mg/dL High 0.70-1.20 [facility] Serum glucose measurement (m ass/volume)Ordered By: Gregorio Cochran on 09-27-2024 Glucose [Mass/Vol] 254 mg/dL High 70-99 [facility] Serum or plasma calcium fabi urement (mass/volume)Ordered By: Gregorio Cochran on 09-27-2024 Calcium [Mass/Vol] 9.5 mg/dL 7.6-11.0 [facility] Serum or plasma urea nitroge n measurement (mass/volume)Ordered By: Gregorio Cochran on 09-27-2024 Urea nitrogen [Mass/Vol] 17 mg/dL 4-19 [facility] Sodium levelOrdered By: Camron Cochran on 09-27-2024 Sodium [Moles/Vol] 136 mmol/L 133-145 [facility] Squamous epithelial cells de tection in urine sediment by light microscopyOrdered By: Gregorio Cochran on 09-27-2024 Epithelial cells.squamous LM Ql (Urine sed) 0-5 SEEN /hpf 5-10 [facility] Urinalysis, Completeon 09-27 BACTERIA 3+ /hpf Normal None Seen [facility] Comment on above: Order Comment: MASHA MCDONNELLOR TO SPECIFY Performed By: #### L 400.0001 #### [facility] [address] [place], [address] EPI,SQUAMOUS 0-5 SEEN Normal 5-10 [facility] Comment on above: Order Comment: MASHA CTOR TO SPECIFY Performed By: #### L 400.0001 #### [facility] [address] [place], [address] RBC 0-5 SEEN Normal 0-5 [facility] Comment on above: Order Comment: COLLE CTOR TO SPECIFY Performed By: #### L 400.0001 #### [facility] [address] [place], [address] WBC 0-5 SEEN Normal 0-5 [facility] Comment on above: Order Comment: COLLE CTOR TO SPECIFY Performed By: #### L 400.0001 #### [facility] [address] [place], [address] Mucus Ql (Urine sed) 0 SEEN Normal [facility] Comment on above: Order Comment: MASHA CTOR TO SPECIFY Performed By: #### L 400.0001 #### [facility] [address] [place], [address] Urine blood detectionOrdered By: Gregorio Cochran on 09-27-2024 Urine Occult Blood 25 /ul High Negative [facility] Urine clarityOrdered By: Kris Cohcran on 09-27-2024 Clarity (U) Clear Clear [facility] Urine color determinationOrd ered By: Gregorio Cochran on 09-27-2024 Color (U) Yellow Yellow [facility] Urine glucose detectionOrder ed By: Gregorio Cochran on 09-27-2024 Glucose Ql (U) Normal mg/dl Normal [facility] Urine leukocyte esterase det ection by dipstickOrdered By: Gregorio Cochran on 09-27-2024 Leukocyte esterase Test strip Ql (U) 25 /ul High Negative [facility] Urine pHOrdered By: Gregorio mercer on 09-27-2024 pH (U) 6.5 [pH] 5.0 - 8.0 [facility] Urine sediment bacteria coun t by microscopy (number/high power field)Ordered By: Gregorio Cochran on 09-27-2024 Bacteria LM.HPF (Urine sed) [#/Area] 3 /[HPF] None Seen [facility] Urine specific gravity measu rementOrdered By: Gregorio Dimas on 09-27-2024 Specific gravity (U) [Rel density] 1.010 1.002-1.03 0 [facility] Urine urobilinogen measureme ntOrdered By: Gregorio Dimas on 09-27-2024 Urobilinogen Ql (U) Normal mg/dl Normal [facility] Urobilinogen Ql (U)Ordered B y: Gregorio Cochran on 09-27-2024 Urine Urobilinogen Normal mg/dl Normal [facility] White blood cell (WBC) count Ordered By: Gregorio Cochran on 09-27-2024 WBC (Bld) [#/Vol] 10.5 10*3/uL 4.4-11.0 [facility] White blood cell countOrdere d By: Gregoriorogers Cochran on 09-27-2024 Urine WBC 0-5 SEEN /hpf 0-5 [facility] White blood cell count 0-5 SEEN /hpf 0-5 [facility] Abdomen/Pelvis without Conto n 09-12-2024 Abdomen/Pelvis without Cont [facility] Imaging Services [address] [place] [address] Abdomen/Pelvis without Cont MR#: [id number] Acct: [id number] Name: JULIANA MERIDA Rep #: [id number] : 1960 F 63 From: Ronaldo Stevenson PCP: Mariah Atkinson MD Status: [facility] ER Study: Abdomen/Pelvis without Cont Date of Exam: 08/08 Exam# [id number] Ordering Dr: Dino Pena MD PROCEDURE: ABDOMEN/PELVIS [...] use of iterative reconstruction technique). Reading Location: [facility] CC: Mariah Atkinson MD; Dr. Dino Pena MD Lacing Cutter: Signed Normal [facility] Absolute neutrophil countOrd ered By: Dino Pena on 09-12-2024 Neutrophils (Bld) [#/Vol] 13.0 10*3/uL High 2.0-7.7 [facility] Amorphous sediment detection in urine sediment by light microscopyOrdered By: Dino Pena on 09-12-2024 Amorphous sediment LM Ql (Urine sed) 1+ URATE [facility] BUN/creatinine ratioOrdered By: Dino Pena on 09-12-2024 Urea nitrogen/Creatinine [Mass ratio] 16.2 mg/mg 10- [facility] Basic Metabolic Profile (BMP )on 09-12-2024 Anion gap [Moles/Vol] 14 mmol/L Normal 5-15 [facility] Comment on above: Performed By: #### L 100.0100, L500.2500 #### [facility] [address] [place], [place], [address] BUN/CRE 16.2 RATIO Normal - [facility] Comment on above: Performed By: #### L 100.0100, L500.2500 #### [facility] [address] [place], [address] Calcium [Mass/Vol] 9.3 mg/dL Normal 7.6-11.0 [facility] Comment on above: Performed By: #### L 100.0100, L500.2500 #### [facility] [address] [place], [address] Chloride [Moles/Vol] 94 mmol/L Low 96-108 [facility] Comment on above: Performed By: #### L 100.0100, L500.2500 #### [facility] [address] [place], [address] CO2 [Moles/Vol] 23.3 mmol/L Normal 22.0-29.0 [facility] Comment on above: Performed By: #### L 100.0100, L500.2500 #### [facility] [address] [place], [address] Creatinine [Mass/Vol] 1.29 mg/dL High 0.70-1.20 [facility] Comment on above: Performed By: #### L 100.0100, L500.2500 #### [facility] [address] [place], [address] ECRCL 50.34 ml/min Normal 50-250 [facility] Comment on above: Performed By: #### L 100.0100, L500.2500 #### [facility] [address] [place], [address] GFR/1.73 sq M.predicted among non-blacks MDRD (S/P/Bld) [Vol rate/Area] 47 mL/min/{1.73_m2} Low >60 [facility] Comment on above: Result Comment: mL/m in/1.73m2 CKD-EPI Creatinine Equation (2020) Performed By: #### L 100.0100, L500.2500 #### [facility] [address] [place], [address] Glucose [Mass/Vol] 239 mg/dL High 70-99 [facility] Comment on above: Performed By: #### L 100.0100, L500.2500 #### [facility] [address] [place], [address] Potassium [Moles/Vol] 4.3 mmol/L Normal 3.3-5.1 [facility] Comment on above: Performed By: #### L 100.0100, L500.2500 #### [facility] [address] [place], [address] Sodium [Moles/Vol] 132 mmol/L Low 133-145 [facility] Comment on above: Performed By: #### L 100.0100, L500.2500 #### [facility] [address] [place], [address] Urea nitrogen [Mass/Vol] 21 mg/dL High 4-19 [facility] Comment on above: Performed By: #### L 100.0100, L500.2500 #### [facility] [address] [place], [address] Basophil percentageOrdered B y: Dino Pena on 09-12-2024 Basophils/100 WBC (Bld) 0.4 % 0-1 [facility] Bilirubin Test strip Ql (U)O rdered By: Dino Pena on 09-12-2024 Bilirubin Ql (U) Negative Negative [facility] CBC W/Diff, Automatedon 03-0 Absolute Lymph 2.44 X10 3/uL Normal 0.83-4.51 [facility] Comment on above: Performed By: #### L 100.0100, L500.2500 #### [facility] [address] [place], [address] Absolute Neut 13.0 X10 3/uL High 2.0-7.7 [facility] Comment on above: Performed By: #### L 100.0100, L500.2500 #### [facility] [address] [place], [address] Basophils/100 WBC (Bld) 0.4 % Normal 0-1 [facility] Comment on above: Performed By: #### L 100.0100, L500.2500 #### [facility] [address] [place], [address] Eosinophils/100 WBC (Bld) 0.2 % Normal 0-5 [facility] Comment on above: Performed By: #### L 100.0100, L500.2500 #### [facility] [address] [place], [address] Erythrocyte distribution width (RBC) [Ratio] 13.6 % Normal 11.6-14.6 [facility] Comment on above: Performed By: #### L 100.0100, L500.2500 #### [facility] [address] [place], [address] Hematocrit (Bld) [Volume fraction] 45.5 % Normal 37-47 [facility] Comment on above: Performed By: #### L 100.0100, L500.2500 #### [facility] [address] [place], [address] Hemoglobin (Bld) [Mass/Vol] 14.7 g/dL Normal 12.0-15.0 [facility] Comment on above: Performed By: #### L 100.0100, L500.2500 #### [facility] [address] [place], [address] IG% 0.700 Normal 0.0-0.9 [facility] Comment on above: Result Comment: IG% - Immature Granulocytes (promyelocytes, myelocytes and metamyelocytes) > 1% indicates that a LEFT SHIFT is Present. Performed By: #### L 100.0100, L500.2500 #### [facility] [address] [place], [address] Lymphocytes/100 WBC (Bld) 14.6 % Low 19-41 [facility] Comment on above: Performed By: #### L 100.0100, L500.2500 #### [facility] [address] [place], [address] MCH (RBC) [Entitic mass] 28.9 pg Normal 27.0-32.0 [facility] Comment on above: Performed By: #### L 100.0100, L500.2500 #### [facility] [address] [place], [address] MCHC (RBC) [Mass/Vol] 32.3 g/dL Normal 32-36 [facility] Comment on above: Performed By: #### L 100.0100, L500.2500 #### [facility] [address] [place], [address] MCV (RBC) [Entitic vol] 89.4 fL Normal 81-99 [facility] Comment on above: Performed By: #### L 100.0100, L500.2500 #### [facility] [address] [place], [address] Monocytes/100 WBC (Bld) 6.7 % Normal 0-10 [facility] Comment on above: Performed By: #### L 100.0100, L500.2500 #### [facility] [address] [place], [address] Neutrophils/100 WBC (Bld) 77.4 % High 47-70 [facility] Comment on above: Performed By: #### L 100.0100, L500.2500 #### [facility] [address] [place], [address] Nucleated RBC (Bld) [#/Vol] 0 10*3/uL Normal 0-5 [facility] Comment on above: Performed By: #### L 100.0100, L500.2500 #### [facility] [address] [place], [address] Platelet mean volume (Bld) [Entitic vol] 10.2 fL Normal 6.2-12.0 [facility] Comment on above: Performed By: #### L 100.0100, L500.2500 #### [facility] [address] [place], [address] Platelets (Bld) [#/Vol] 272 10*3/uL Normal 150-450 [facility] Comment on above: Performed By: #### L 100.0100, L500.2500 #### [facility] [address] [place], [address] RBC (Bld) [#/Vol] 5.09 10*6/uL Normal 4.2-5.4 [facility] Comment on above: Performed By: #### L 100.0100, L500.2500 #### [facility] [address] [place], [address] RDW SD 44.4 fl High 35.1-43.9 [facility] Comment on above: Performed By: #### L 100.0100, L500.2500 #### [facility] [address] [place], [address] WBC (Bld) [#/Vol] 16.8 10*3/uL High 4.4-11.0 [facility] Comment on above: Performed By: #### L 100.0100, L500.2500 #### [facility] [address] [place], [address] Carbon dioxide measurementOr dered By: Dino Pena on 09-12-2024 CO2 [Moles/Vol] 23.3 mmol/L 22.0-29.0 [facility] Chloride measurementOrdered By: Dino Pena on 09-12-2024 Chloride [Moles/Vol] 94 mmol/L Low 96-108 [facility] Emergency Department Summary on 09-12-2024 Emergency Department Summary [facility] Medical Records Department [address] [place] [address] Emergency Department Summary 09/12/24 MR#: [id number] Acct: [id number] Name: JULIANA MERIDA Rep #: [id number] : 1960 63 From: Dino Pena MD PCP: Mariah Atkinson MD Status:DEP ER Location: ED HPI HPI - GI History of Present Illness Chief Complaint: Flank Pain Informant: patient and EMS Narrative Narrative: 63-year-old assisted patient presenting with pain in her right [...] ago. She has seen a urologist in [place] but she cannot remember who it was. She denies any hematuria she is on Eliquis. She denies any cough, shortness of breath, fevers or chills or other symptoms. [facility] Medical History Lives in assisted Hx of fracture of hip Wears glasses [...] bisacodyl 10 mg rectal suppository 10 mg [place] .Q24 PRN PRN constipati on 12/18/22 Unknown [...] 12/18/22 Un (more content not included)... Normal [facility] Eosinophil percentageOrdered By: Dino Pena on 09-12-2024 Eosinophils/100 WBC (Bld) 0.2 % 0-5 [facility] Epithelial cells.squamous LM Ql (Urine sed)Ordered By: Dino Pena on 09-12-2024 Epithelial cells.squamous LM.HPF (Urine sed) [#/Area] 0 /[HPF] 5-10 [facility] Erythrocyte distribution wid th ratioOrdered By: Dino Pena on 09-12-2024 Erythrocyte distribution width (RBC) [Ratio] 13.6 % 11.6-14.6 [facility] Erythrocyte distribution wid th standard deviationOrdered By: Dino Pena on 09-12-2024 Erythrocyte distribution width (RBC) [Entitic vol] 44.4 fL High 35.1-43.9 [facility] Estimation of creatinine bret aranceOrdered By: Dino Pena on 09-12-2024 Estimated Creatinine Clearance Calc 50.34 ml/min 50-250 [facility] GFR/1.73 sq M.predicted augustin g non-blacks MDRD (S/P/Bld) [Vol rate/Area]Ordered By: Dino Pena on 09-12-2024 Estimated GFR (MDRD) Non-Af Amer 47 Low >60 [facility] Comment on above: mL/min/1.73m2 CKD-EP I Creatinine Equation (2020) Glucose Ql (U)Ordered By: Navya Pena on 09-12-2024 Urine Glucose (UA) Normal mg/dl Normal [facility] Hematocrit Auto (Bld) [Volum e fraction]Ordered By: Dino Pena on 09-12-2024 Hematocrit (Bld) [Volume fraction] 45.5 % 37-47 [facility] Hemoglobin measurementOrdere d By: Dino Pena on 09-12-2024 Hemoglobin (Bld) [Mass/Vol] 14.7 g/dL 12.0-15.0 [facility] Immature granulocytes/100 WB C Auto (Bld)Ordered By: Dino Pena on 09-12-2024 Immature granulocytes/100 WBC (Bld) 0.700 % 0.0-0.9 [facility] Comment on above: IG% - Immature Granu locytes (promyelocytes, myelocytes and metamyelocytes) > 1% indicates that a LEFT SHIFT is Present. Ketones Test strip Ql (U)Ord ered By: Dino Pena on 09-12-2024 Ketones Ql (U) Negative Negative [facility] Lymphocytes Auto (Unsp spec) [#/Vol]Ordered By: Dino Pena on 09-12-2024 Lymphocytes (Bld) [#/Vol] 2.44 10*3/uL 0.83-4.51 [facility] Lymphocytes/100 WBC Auto (Un sp spec)Ordered By: Dino Pena on 09-12-2024 Lymphocytes/100 WBC (Bld) 14.6 % Low 19-41 [facility] MCV (mean corpuscular volume ) determinationOrdered By: Dino Pena on 09-12-2024 MCV (RBC) [Entitic vol] 89.4 fL 81-99 [facility] Mean corpuscular hemoglobin (MCH) determinationOrdered By: Dino Pena on 09-12-2024 MCH (RBC) [Entitic mass] 28.9 pg 27.0-32.0 [facility] Mean corpuscular hemoglobin concentration (MCHC) determinationOrdered By: Dino Pena on 09-12-2024 MCHC (RBC) [Mass/Vol] 32.3 g/dL 32-36 [facility] Mean platelet volume determi nationOrdered By: Dino Pena on 09-12-2024 Platelet mean volume (Bld) [Entitic vol] 10.2 fL 6.2-12.0 [facility] Microscopic analysis of urin e for red blood cells (RBC)Ordered By: Dino Pena on 09-12-2024 Urine RBC 25-50 SEEN /hpf 0-5 [facility] Monocyte percentageOrdered B y: Dino Pena on 09-12-2024 Monocytes/100 WBC (Bld) 6.7 % 0-10 [facility] Mucus LM Ql (Urine sed)Order ed By: Dino Pena on 09-12-2024 Mucus Ql (Urine sed) 0 SEEN /hpf [facility] Neutrophil percentageOrdered By: Dino Pena on 09-12-2024 Neutrophils/100 WBC (Bld) 77.4 % High 47-70 [facility] Nitrite Test strip Ql (U)Ord ered By: Dino Pena on 09-12-2024 Nitrite Ql (U) Negative Negative [facility] Nucleated red blood cell per centageOrdered By: Dino Pena on 09-12-2024 Nucleated RBC/100 WBC (Bld) [Ratio] 0 % 0-5 [facility] Platelet countOrdered By: Navya Pena on 09-12-2024 Platelets (Bld) [#/Vol] 272 10*3/uL 150-450 [facility] Protein Test strip Ql (U)Ord ered By: Dino Pena on 09-12-2024 Protein Ql (U) 15 mg/dl High Negative [facility] RBC Auto (Bld) [#/Vol]Ordere d By: Dino Pena on 03-01-2025 RBC (Bld) [#/Vol] 5.09 10*6/uL 4.2-5.4 [facility] Serum creatinine measurement (mass/volume)Ordered By: Dino Pena on 09-12-2024 Creatinine [Mass/Vol] 1.29 mg/dL High 0.70-1.20 [facility] Serum glucose measurement (m ass/volume)Ordered By: Dino Pena on 09-12-2024 Glucose [Mass/Vol] 239 mg/dL High 70-99 [facility] Serum or plasma anion gap de termination (moles/volume)Ordered By: Dino Pena on 09-12-2024 Anion gap [Moles/Vol] 14 mmol/L 5-15 [facility] Serum or plasma calcium fabi urement (mass/volume)Ordered By: Dino Pena on 09-12-2024 Calcium [Mass/Vol] 9.3 mg/dL 7.6-11.0 [facility] Serum or plasma potassium me asurementOrdered By: Dnio Pena on 09-12-2024 Potassium [Moles/Vol] 4.3 mmol/L 3.3-5.1 [facility] Serum or plasma sodium measu rement (moles/volume)Ordered By: Dino Pena on 09-12-2024 Sodium [Moles/Vol] 132 mmol/L Low 133-145 [facility] Serum or plasma urea nitroge n measurement (mass/volume)Ordered By: Dino Pena on 09-12-2024 Urea nitrogen [Mass/Vol] 21 mg/dL High 4-19 [facility] Urinalysis, Completeon 09-12 AMORPHOUS 1+ URATE Normal [facility] Comment on above: Order Comment: MASHA MCDONNELLOR TO SPECIFY Performed By: #### L 400.0001 #### [facility] [address] [place], [place], [id number] EPI,SQUAMOUS 0-5 SEEN Normal 5-10 [facility] Comment on above: Order Comment: MASHA MCDONNELLOR TO SPECIFY Performed By: #### L 400.0001 #### [facility] [address] [place], [address] RBC 25-50 SEEN Normal 0-5 [facility] Comment on above: Order Comment: MASHA CTOR TO SPECIFY Performed By: #### L 400.0001 #### [facility] [address] [place], [address] WBC 0-5 SEEN Normal 0-5 [facility] Comment on above: Order Comment: MASHA CTOR TO SPECIFY Performed By: #### L 400.0001 #### [facility] [address] [place], [address] BACTERIA 0 SEEN Normal None Seen [facility] Comment on above: Order Comment: MASHA CTOR TO SPECIFY Performed By: #### L 400.0001 #### [facility] [address] [place], [address] Mucus Ql (Urine sed) 0 SEEN Normal [facility] Comment on above: Order Comment: MASHA CTOR TO SPECIFY Performed By: #### L 400.0001 #### [facility] [address] [place], [address] Urine blood detectionOrdered By: Dino Pena on 09-12-2024 Urine Occult Blood 250 /ul High Negative [facility] Urine clarityOrdered By: Migdalia Pena on 09-12-2024 Clarity (U) Sl. Cloudy Clear [facility] Urine color determinationOrd ered By: Dino Pena on 09-12-2024 Color (U) Yellow Yellow [facility] Urine leukocyte esterase det ection by dipstickOrdered By: Dino Pena on 09-12-2024 Leukocyte esterase Test strip Ql (U) 25 /ul High Negative [facility] Urine pHOrdered By: Dino Pena on 09-12-2024 pH (U) 5.0 [pH] 5.0 - 8.0 [facility] Urine sediment bacteria coun t by microscopy (number/high power field)Ordered By: Dino Pena on 09-12-2024 Bacteria LM.HPF (Urine sed) [#/Area] 0 /[HPF] None Seen [facility] Urine specific gravity measu rementOrdered By: Dino Pena on 09-12-2024 Specific gravity (U) [Rel density] 1.020 1.002-1.03 0 [facility] Urobilinogen Ql (U)Ordered B y: Dino Pena on 09-12-2024 Urine Urobilinogen Normal mg/dl Normal [facility] White blood cell (WBC) count Ordered By: Dino Pena on 09-12-2024 WBC (Bld) [#/Vol] 16.8 10*3/uL High 4.4-11.0 [facility] White blood cell countOrdere d By: Dnio Becky on 09-12-2024 Urine WBC 0-5 SEEN /hpf 0-5 [facility] CNPNon 07-16-2024 CNPN Telephone (AGRHEUHWN ) -------- JULIANA MERIDA ([id number]) 1960 F Date Time Provider Department 07/16/24 FUNMILAYO POPE During your visit today, we recorded the following information about you: Sandra Dunn 07/16/2024 9:45 AM Signed Prolia- Bath Approved [id number] [facility] Medicare/Portal 07.15.24-07.15.25 2 visits Sandra Corado Manager Urology Allergies As of Date: 07/16/2024 Noted Allergy [...] Medication Preauthorization [914] Cmt: Prolia- Bath Approved [id number] [facility] Medicare/Portal 07.15.24-07.15.25 2 visits Prescriptions as [...] hours as needed for cough. 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 - insulin glargine,hum.rec.anlog (TOUJEO MAX U-300 SOLOSTAR SUBCUTANEOUS) Inject subcutaneously as directed. - snpuoeuhbhy-rbnhanddj-ib lanter (TRELEGY ELLIPTA) 200-62.5-25 mcg inhalation powder [...] 50 mcg/actuation (more content not included)... Normal [facility] MA MAMMOGRAM SCREENING BILAT ERAL W/TOMOon 06-05-2024 MA MAMMOGRAM SCREENING BILATERAL W/SHEREE ORIGINAL FROM: [address] [address] PROCEDURE FOR: JULIANA MERIDA [address] [place] [address] Home: PID#: [id number] Exam#: [id number] : 1960 Age: 63 TO: FLORENTIN HANSEN [facility] [address] [place] [address] EXAMINATION: SCREENING DIGITAL BILATERAL MAMMOGRAM WITH TOMOSYNTHESIS, [...] addition to annual mammographic screening per the [employer]. BIRADS: BI-RADS: 2: Benign RECALL: 1 year screening RECALL TYPE: mammo LETTER SENT: Normal BI-RADS 1 and 2 Interpreted by: Suresh Ruiz MD Preliminary Report By: Suresh Ruiz MD Electronically signed By Suresh Ruiz MD Dictated Date: 06/05/2024 3:28:32 PM Prelim Date: 06/05/2024 3:30:24 PM Sign Date: 06/05/2024 3:30:24 PM Ordering Provider: FLORENTIN HANSEN CLINICAL: BASELINE. Lacing Cutter: LASHONDA CHAN RT(R)(M) letter sent: Normal BI-RADS 1 and 2 Mammogram BI-RADS: 2 Benign Normal [facility] Abdomen/Pelvis without Conto n 04-08-2024 Abdomen/Pelvis without Cont [facility] Imaging Services [address] [place] [id number] Abdomen/Pelvis without Cont MR#: [id number] Acct: [id number] Name: JULIANA MERIDA Rep #: [id number] : 1960 F 63 From: Rancho Mares MD PCP: Bianca Palomares MD Status: DEP ER Study: Abdomen/Pelvis without Cont Date of Exam: 03/16 12/05 Exam# [id number] Ordering Dr: Rancho Orozco DO [id number] EXAM: CT ABDOMEN AND PELVIS WITHOUT INTRAVENOUS [...] Signed: Rancho Mares MD at 4:15 EDT , CC: Rancho Orozco DO; Bianca Palomares MD Lacing Cutter: Signed Normal [facility] Basic Metabolic Profile (BMP )on 04-08-2024 BUN/CRE 19.6 RATIO Normal 10-20 [facility] Comment on above: Order Comment: RESUL T(S) PREVIOUSLY REPORTED ON MANUAL REQUISITION DURINGDOWNTIME. Performed By: #### L 100.0100, L500.2500, L400.0001 ####[facility] [address] [place], [address] CA,Total 9.3 mg/dL Normal 8.5-10.1 [facility] Comment on above: Order Comment: RESUL T(S) PREVIOUSLY REPORTED ON MANUAL REQUISITION DURINGDOWNTIME. Performed By: #### L 100.0100, L500.2500, L400.0001 ####[facility] [address] [place], [address] Chloride [Moles/Vol] 101 mmol/L Normal 98-107 [facility] Comment on above: Order Comment: RESUL T(S) PREVIOUSLY REPORTED ON MANUAL REQUISITION DURINGDOWNTIME. Performed By: #### L 100.0100, L500.2500, L400.0001 ####[facility] [address] [place], [address] CO2 [Moles/Vol] 29.0 mmol/L Normal 21.0-32.0 [facility] Comment on above: Order Comment: RESUL T(S) PREVIOUSLY REPORTED ON MANUAL REQUISITION DURINGDOWNTIME. Performed By: #### L 100.0100, L500.2500, L400.0001 ####[facility] [address] [place], [address] Creatinine [Mass/Vol] 1.02 mg/dL Normal 0.55-1.02 [facility] Comment on above: Order Comment: RESUL T(S) PREVIOUSLY REPORTED ON MANUAL REQUISITION DURINGDOWNTIME. Result Comment: The validity of the calculated GFR GFRAA in patients over 70 years has not been determined. Clinical correlation is essential. Performed By: #### L 100.0100, L500.2500, L400.0001 ####[facility] [address] [place], [address] ECRCL 62.65 ml/min Normal [facility] Comment on above: Order Comment: RESUL T(S) PREVIOUSLY REPORTED ON MANUAL REQUISITION DURINGDOWNTIME. Performed By: #### L 100.0100, L500.2500, L400.0001 ####[facility] [address] [place], [address] EST GFR - AA 70 mL/min Normal >60 [facility] Comment on above: Order Comment: RESUL T(S) PREVIOUSLY REPORTED ON MANUAL REQUISITION DURINGDOWNTIME. Performed By: #### L 100.0100, L500.2500, L400.0001 ####[facility] [address] [place], [address] GAP 7 Normal 5-15 [facility] Comment on above: Order Comment: RESUL T(S) PREVIOUSLY REPORTED ON MANUAL REQUISITION DURINGDOWNTIME. Performed By: #### L 100.0100, L500.2500, L400.0001 ####[facility] [address] [place], [address] GFR/1.73 sq M.predicted among non-blacks MDRD (S/P/Bld) [Vol rate/Area] 58 mL/min/{1.73_m2} Low >60 [facility] Comment on above: Order Comment: RESUL T(S) PREVIOUSLY REPORTED ON MANUAL REQUISITION DURINGDOWNTIME. Performed By: #### L 100.0100, L500.2500, L400.0001 ####[facility] [address] [place], [address] Glucose [Mass/Vol] 135 mg/dL High 74-106 [facility] Comment on above: Order Comment: RESUL T(S) PREVIOUSLY REPORTED ON MANUAL REQUISITION DURINGDOWNTIME. Result Comment: Fast ing Glucose result greater than or equal to 126 mg/dL suggests DIABETES MELLITUS per A.D.A. criteria. Performed By: #### L 100.0100, L500.2500, L400.0001 ####[facility] [address] [place], [address] Potassium [Moles/Vol] 3.3 mmol/L Low 3.5-5.1 [facility] Comment on above: Order Comment: RESUL T(S) PREVIOUSLY REPORTED ON MANUAL REQUISITION DURINGDOWNTIME. Performed By: #### L 100.0100, L500.2500, L400.0001 ####[facility] [address] [place], [address] Sodium [Moles/Vol] 137 mmol/L Normal 136-145 [facility] Comment on above: Order Comment: RESUL T(S) PREVIOUSLY REPORTED ON MANUAL REQUISITION DURINGDOWNTIME. Performed By: #### L 100.0100, L500.2500, L400.0001 ####[facility] [address] [place], [address] Urea nitrogen [Mass/Vol] 20 mg/dL High 7-18 [facility] Comment on above: Order Comment: RESUL T(S) PREVIOUSLY REPORTED ON MANUAL REQUISITION DURINGDOWNTIME. Performed By: #### L 100.0100, L500.2500, L400.0001 ####[facility] [address] [place], [address] CBC W/Diff, Automatedon -2 5-202 Basophils/100 WBC (Bld) 0.4 % Normal 0-1 [facility] Comment on above: Performed By: #### L 100.0100, L500.2500, L400.0001 ####[facility] [address] [place], [address] Eosinophils/100 WBC (Bld) 0.6 % Normal 0-5 [facility] Comment on above: Performed By: #### L 100.0100, L500.2500, L400.0001 ####[facility] [address] [place], [address] IG% 0.800 Normal 0.0-0.9 [facility] Comment on above: Result Comment: IG% - Immature Granulocytes (promyelocytes, myelocytes and metamyelocytes) > 1% indicates that a LEFT SHIFT is Present. Performed By: #### L 100.0100, L500.2500, L400.0001 ####[facility] [address] [place], [address] Lymphocytes/100 WBC (Bld) 22.9 % Normal 19-41 [facility] Comment on above: Performed By: #### L 100.0100, L500.2500, L400.0001 ####[facility] [address] [place], [address] Monocytes/100 WBC (Bld) 6.9 % Normal 0-10 [facility] Comment on above: Performed By: #### L 100.0100, L500.2500, L400.0001 ####[facility] [address] [place], [address] Neutrophils/100 WBC (Bld) 68.4 % Normal 47-70 [facility] Comment on above: Performed By: #### L 100.0100, L500.2500, L400.0001 ####[facility] [address] [place], [address] Erythrocyte distribution width (RBC) [Ratio] 13.5 % Normal 11.6-14.6 [facility] Comment on above: Performed By: #### L 100.0100, L500.2500, L400.0001 ####[facility] [address] [place], [address] Hematocrit (Bld) [Volume fraction] 42.9 % Normal 37-47 [facility] Comment on above: Performed By: #### L 100.0100, L500.2500, L400.0001 ####[facility] [address] [place], [address] Hemoglobin (Bld) [Mass/Vol] 14.5 g/dL Normal 12.0-15.0 [facility] Comment on above: Performed By: #### L 100.0100, L500.2500, L400.0001 ####[facility] [address] [place], [address] MCH (RBC) [Entitic mass] 29.7 pg Normal 27.0-32.0 [facility] Comment on above: Performed By: #### L 100.0100, L500.2500, L400.0001 ####[facility] [address] [place], [address] MCHC (RBC) [Mass/Vol] 33.8 g/dL Normal 32-36 [facility] Comment on above: Performed By: #### L 100.0100, L500.2500, L400.0001 ####[facility] [address] [place], [address] MCV (RBC) [Entitic vol] 87.9 fL Normal 81-99 [facility] Comment on above: Performed By: #### L 100.0100, L500.2500, L400.0001 ####[facility] [address] [place], [address] Platelet mean volume (Bld) [Entitic vol] 9.9 fL Normal 6.2-12.0 [facility] Comment on above: Performed By: #### L 100.0100, L500.2500, L400.0001 ####[facility] [address] [place], [address] Platelets (Bld) [#/Vol] 200 10*3/uL Normal 150-450 [facility] Comment on above: Performed By: #### L 100.0100, L500.2500, L400.0001 ####[facility] [address] [place], [address] RBC (Bld) [#/Vol] 4.88 10*6/uL Normal 4.2-5.4 [facility] Comment on above: Performed By: #### L 100.0100, L500.2500, L400.0001 ####[facility] [address] [place], [address] RDW SD 43.8 fl Normal 35.1-43.9 [facility] Comment on above: Performed By: #### L 100.0100, L500.2500, L400.0001 ####[facility] [address] [place], [address] WBC (Bld) [#/Vol] 13.4 10*3/uL High 4.4-11.0 [facility] Comment on above: Performed By: #### L 100.0100, L500.2500, L400.0001 ####[facility] [address] [place], [address] Emergency Department Summary on 04-08-2024 Emergency Department Summary [facility] Medical Records Department [address] [place] [address] Emergency Department Summary 04/08/24 MR#: [id number] Acct: [id number] Name: JULIANA MERIDA YANELI Rep #: [id number] : 1960 63 From: Rancho Orozco DO [...] retention she was sent in for evaluation. [facility] Medical History Lives in assisted Hx of fracture of hip Wears glasses [...] bisacodyl 10 mg rectal suppository 10 mg [place] .Q24 PRN PRN constipation 12/18/22 Unknown History [...] Unknown History (more content not included)... Normal [facility] Urinalysis, Completeon 04-08 [place] ESTERASE Negative Normal Negative [facility] Comment on above: Order Comment: RESUL T(S) PREVIOUSLY REPORTED ON MANUAL REQUISITION DURINGDOWNTIME.CLEAN CATCH Performed By: #### L 100.0100, L500.2500, L400.0001 ####[facility] [address] [place], [address] Nitrite Ql (U) Negative Normal Negative [facility] Comment on above: Order Comment: RESUL T(S) PREVIOUSLY REPORTED ON MANUAL REQUISITION DURINGDOWNTIME.CLEAN CATCH Performed By: #### L 100.0100, L500.2500, L400.0001 ####[facility] [address] [place], [address] OCCULT BLOOD-UR Negative Normal Negative [facility] Comment on above: Order Comment: RESUL T(S) PREVIOUSLY REPORTED ON MANUAL REQUISITION DURINGDOWNTIME.CLEAN CATCH Performed By: #### L 100.0100, L500.2500, L400.0001 ####[facility] [address] [place], [address] pH UR 7.0 Normal 5.0 - 8.0 [facility] Comment on above: Order Comment: RESUL T(S) PREVIOUSLY REPORTED ON MANUAL REQUISITION DURINGDOWNTIME.CLEAN CATCH Performed By: #### L 100.0100, L500.2500, L400.0001 ####[facility] [address] [place], [address] PROT DIPSTX Negative Normal Negative [facility] Comment on above: Order Comment: RESUL T(S) PREVIOUSLY REPORTED ON MANUAL REQUISITION DURINGDOWNTIME.CLEAN CATCH Performed By: #### L 100.0100, L500.2500, L400.0001 ####[facility] [address] [place], [address] SP.GR. DIPSTX 1.005 Normal 1.002-1.03 0 [facility] Comment on above: Order Comment: RESUL T(S) PREVIOUSLY REPORTED ON MANUAL REQUISITION DURINGDOWNTIME.CLEAN CATCH Performed By: #### L 100.0100, L500.2500, L400.0001 ####[facility] [address] [place], [address] UROBILI Normal Normal Normal [facility] Comment on above: Order Comment: RESUL T(S) PREVIOUSLY REPORTED ON MANUAL REQUISITION DURINGDOWNTIME.CLEAN CATCH Performed By: #### L 100.0100, L500.2500, L400.0001 ####[facility] [address] [place], [address] BILIRUBIN URINE Negative Normal Negative [facility] Comment on above: Order Comment: RESUL T(S) PREVIOUSLY REPORTED ON MANUAL REQUISITION DURINGDOWNTIME.CLEAN CATCH Performed By: #### L 100.0100, L500.2500, L400.0001 ####[facility] [address] [place], [address] Clarity (U) Clear Normal Clear [facility] Comment on above: Order Comment: RESUL T(S) PREVIOUSLY REPORTED ON MANUAL REQUISITION DURINGDOWNTIME.CLEAN CATCH Performed By: #### L 100.0100, L500.2500, L400.0001 ####[facility] [address] [place], [address] Color (U) YELLOW Normal Yellow [facility] Comment on above: Order Comment: RESUL T(S) PREVIOUSLY REPORTED ON MANUAL REQUISITION DURINGDOWNTIME.CLEAN CATCH Performed By: #### L 100.0100, L500.2500, L400.0001 ####[facility] [address] [place], [address] GLUCOSE, UR Negative Normal Normal [facility] Comment on above: Order Comment: RESUL T(S) PREVIOUSLY REPORTED ON MANUAL REQUISITION DURINGDOWNTIME.CLEAN CATCH Performed By: #### L 100.0100, L500.2500, L400.0001 ####[facility] [address] [place], [address] KETONE UR Negative Normal Negative [facility] Comment on above: Order Comment: RESUL T(S) PREVIOUSLY REPORTED ON MANUAL REQUISITION DURINGDOWNTIME.CLEAN CATCH Performed By: #### L 100.0100, L500.2500, L400.0001 ####[facility] [address] [place], [address] BACTERIA 0 SEEN Normal None Seen [facility] Comment on above: Order Comment: RESUL T(S) PREVIOUSLY REPORTED ON MANUAL REQUISITION DURINGDOWNTIME.CLEAN CATCH Performed By: #### L 100.0100, L500.2500, L400.0001 ####[facility] [address] [place], [address] EPI,SQUAMOUS 0 SEEN Normal 5-10 [facility] Comment on above: Order Comment: RESUL T(S) PREVIOUSLY REPORTED ON MANUAL REQUISITION DURINGDOWNTIME.CLEAN CATCH Performed By: #### L 100.0100, L500.2500, L400.0001 ####[facility] [address] [place], [address] Mucus Ql (Urine sed) 0 SEEN Normal [facility] Comment on above: Order Comment: RESUL T(S) PREVIOUSLY REPORTED ON MANUAL REQUISITION DURINGDOWNTIME.CLEAN CATCH Performed By: #### L 100.0100, L500.2500, L400.0001 ####[facility] [address] [place], [address] RBC 0 SEEN Normal 0-5 [facility] Comment on above: Order Comment: RESUL T(S) PREVIOUSLY REPORTED ON MANUAL REQUISITION DURINGDOWNTIME.CLEAN CATCH Performed By: #### L 100.0100, L500.2500, L400.0001 ####[facility] [address] [place], [address] WBC 0 SEEN Normal 0-5 [facility] Comment on above: Order Comment: RESUL T(S) PREVIOUSLY REPORTED ON MANUAL REQUISITION DURINGDOWNTIME.CLEAN CATCH Performed By: #### L 100.0100, L500.2500, L400.0001 ####[facility] [address] [place], [address] [facility] JULIANA MERIDA ([id number]) 1960 F Date Time Provider Department 03/23/24 [...] AND Alexsandra in Oc Presley's office a [employer] chat message letting them know patient was [...] hours as needed for cough. 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 - insulin glargine,hum.rec.anlog (TOUJEO MAX U-300 SOLOSTAR SUBCUTANEOUS) Inject subcutaneously as directed. - ctougiffmlg-otqhjybyq-hc lanter (TRELEGY ELLIPTA) 200-62.5-25 mcg inhalation powder [...] 20 mg (more content not included)... Normal [facility] CNPN Telephone (INNACOGDOCHES) -------- JULIANA MERIDA ([id number]) 1960 F Date Time Provider Department 03/23/24 [...] hours as needed for cough. 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 - insulin glargine,hum.rec.anlog (TOUJEO MAX U-300 SOLOSTAR SUBCUTANEOUS) Inject subcutaneously as directed. - irebazxrivg-paprbamex-pe lanter (TRELEGY ELLIPTA) 200-62.5-25 mcg inhalation powder [...] (FLONASE) 50 mcg/actuation nasal spray Use 1 [place] in each nostril once daily. . - pregabalin (LYRICA) 100 mg capsule Take 1 capsule by mouth twice daily. - magnesium oxide (MAG-OX) 400 mg tablet Take 1 tablet by mouth once daily. - multivitamin tablet Take 1 tab (more content not included)... Normal [facility] Bedside Glucoseon 03-22-2024 FINGERSTICK GLU 158 mg/dL High 74-106 [facility] Comment on above: Result Comment: PAO MARS OF PATIENT CARE PER NURSING PROTOCOL Performed By: #### L 400.0001 #### [facility] [address] [place], [place], [id number] 12 Lead EKGon 03-21-2024 12 Lead EKG [facility] Cardiovascular Services [address] [place] [address] 12 Lead EKG 03/21/24 194 MR#: [id number] Acct: [id number] Name: JULIANA MERIDA Rep #: [id number] : 1960 63 From: Kurt Justice MD [...] Borderline ECG Confirmed by KURT JUSTICE MD ([id number]), editor sound SVETA STILES ([id number]) on 03/23/2024 6:45:07 AM Referred By: AR Confirmed By:KURT JUSTICE MD 03/23/24 0645 Date Kurt Justice MD CC: Dr. Oswaldo Lo MD; Bianca Palomares MD Signed Normal [facility] 12 Lead EKG [facility] Cardiovascular Services [address] [place] [address] 12 Lead EKG 03/21/24 2110 MR#: [id number] Acct: [id number] Name: JULIANA MERIDA YANELI Rep #: [id number] : 1960 63 From: Kurt Justice MD Attending Dr: Status: DEP ER Ordering Dr: Oswadlo Lo MD Date: 03/21/24 Location: ED Sex: [...] Borderline ECG Confirmed by KURT JUSTICE MD ([id number]), editor STILES SVETA ([id number]) on 03/23/2024 6:44:53 AM Referred By: Confirmed By:KURT JUSTICE MD 03/23/24 0644 Date Kurt Justice MD CC: Dr. Oswaldo Lo MD; Bianca Palomares MD Signed Normal [facility] Basic Metabolic Profile (BMP )on 03-21-2024 BUN/CRE 15.2 RATIO Normal 10-20 [facility] Comment on above: Order Comment: COLLE CTOR TO SPECIFY Performed By: #### L 400.0001 #### [facility] [address] [place], [address] CA,Total 9.7 mg/dL Normal 8.5-10.1 [facility] Comment on above: Order Comment: MASHA CTOR TO SPECIFY Performed By: #### L 400.0001 #### [facility] [address] [place], [address] Chloride [Moles/Vol] 106 mmol/L Normal 98-107 [facility] Comment on above: Order Comment: MASHA CTOR TO SPECIFY Performed By: #### L 400.0001 #### [facility] [address] [place], [address] CO2 [Moles/Vol] 25.0 mmol/L Normal 21.0-32.0 [facility] Comment on above: Order Comment: COLLE CTOR TO SPECIFY Performed By: #### L 400.0001 #### [facility] [address] [place], [address] Creatinine [Mass/Vol] 0.86 mg/dL Normal 0.55-1.02 [facility] Comment on above: Order Comment: MASHA CTOR TO SPECIFY Result Comment: The validity of the calculated GFR GFRAA in patients over 70 years has not been determined. Clinical correlation is essential. Performed By: #### L 400.0001 #### [facility] [address] [place], [address] ECRCL 74.91 ml/min Normal [facility] Comment on above: Order Comment: MASHA CTOR TO SPECIFY Performed By: #### L 400.0001 #### [facility] [address] [place], [address] EST GFR - AA 86 mL/min Normal >60 [facility] Comment on above: Order Comment: MASHA CTOR TO SPECIFY Result Comment: Afri can Ghanaian GFR Calc Performed By: #### L 400.0001 #### [facility] [address] [place], [address] GAP 7 Normal 5-15 [facility] Comment on above: Order Comment: MASHA CTOR TO SPECIFY Performed By: #### L 400.0001 #### [facility] [address] [place], [address] GFR/1.73 sq M.predicted among non-blacks MDRD (S/P/Bld) [Vol rate/Area] 71 mL/min/{1.73_m2} Normal >60 [facility] Comment on above: Order Comment: MASHA CTOR TO SPECIFY Result Comment: Non- GFR Calc Performed By: #### L 400.0001 #### [facility] [address] [place], [address] Glucose [Mass/Vol] 227 mg/dL High 74-106 [facility] Comment on above: Order Comment: MASHA CTOR TO SPECIFY Result Comment: Gluc ose result greater than or equal to 200 mg/dL suggests DIABETES MELLITUS per A.D.A. criteria. Performed By: #### L 400.0001 #### [facility] [address] [place], [address] Potassium [Moles/Vol] 3.7 mmol/L Normal 3.5-5.1 [facility] Comment on above: Order Comment: MASHA CTOR TO SPECIFY Performed By: #### L 400.0001 #### [facility] [address] [place], [address] Sodium [Moles/Vol] 138 mmol/L Normal 136-145 [facility] Comment on above: Order Comment: MASHA CTOR TO SPECIFY Performed By: #### L 400.0001 #### [facility] [address] [place], [address] Urea nitrogen [Mass/Vol] 13 mg/dL Normal 7-18 [facility] Comment on above: Order Comment: MASHA CTOR TO SPECIFY Performed By: #### L 400.0001 #### [facility] [address] [place], [address] CBC W/Diff, Automatedon 09-0 7-2023 Absolute Lymph 3.14 X10 3/uL Normal 0.83-4.51 [facility] Comment on above: Performed By: #### L 400.0001 #### [facility] [address] [place], [address] Absolute Neut 8.1 X10 3/uL High 2.0-7.7 [facility] Comment on above: Performed By: #### L 400.0001 #### [facility] [address] [place], [address] Basophils/100 WBC (Bld) 0.6 % Normal 0-1 [facility] Comment on above: Performed By: #### L 400.0001 #### [facility] [address] [place], [address] Eosinophils/100 WBC (Bld) 0.7 % Normal 0-5 [facility] Comment on above: Performed By: #### L 400.0001 #### [facility] [address] [place], [address] Erythrocyte distribution width (RBC) [Ratio] 13.8 % Normal 11.6-14.6 [facility] Comment on above: Performed By: #### L 400.0001 #### [facility] [address] [place], [address] Hematocrit (Bld) [Volume fraction] 46.8 % Normal 37-47 [facility] Comment on above: Performed By: #### L 400.0001 #### [facility] [address] [place], [address] Hemoglobin (Bld) [Mass/Vol] 15.5 g/dL High 12.0-15.0 [facility] Comment on above: Performed By: #### L 400.0001 #### [facility] [address] [place], [address] IG% 0.700 Normal 0.0-0.9 [facility] Comment on above: Result Comment: IG% - Immature Granulocytes (promyelocytes, myelocytes and metamyelocytes) > 1% indicates that a LEFT SHIFT is Present. Performed By: #### L 400.0001 #### [facility] [address] [place], [address] Lymphocytes/100 WBC (Bld) 25.7 % Normal 19-41 [facility] Comment on above: Performed By: #### L 400.0001 #### [facility] [address] [place], [address] MCH (RBC) [Entitic mass] 29.2 pg Normal 27.0-32.0 [facility] Comment on above: Performed By: #### L 400.0001 #### [facility] [address] [place], [address] MCHC (RBC) [Mass/Vol] 33.1 g/dL Normal 32-36 [facility] Comment on above: Performed By: #### L 400.0001 #### [facility] [address] [place], [address] MCV (RBC) [Entitic vol] 88.1 fL Normal 81-99 [facility] Comment on above: Performed By: #### L 400.0001 #### [facility] [address] [place], [address] Monocytes/100 WBC (Bld) 6.4 % Normal 0-10 [facility] Comment on above: Performed By: #### L 400.0001 #### [facility] [address] [place], [address] Neutrophils/100 WBC (Bld) 65.9 % Normal 47-70 [facility] Comment on above: Performed By: #### L 400.0001 #### [facility] [address] [place], [address] Nucleated RBC (Bld) [#/Vol] 0 10*3/uL Normal 0-5 [facility] Comment on above: Performed By: #### L 400.0001 #### [facility] [address] [place], [address] Platelet mean volume (Bld) [Entitic vol] 10.7 fL Normal 6.2-12.0 [facility] Comment on above: Performed By: #### L 400.0001 #### [facility] [address] [place], [address] Platelets (Bld) [#/Vol] 218 10*3/uL Normal 150-450 [facility] Comment on above: Performed By: #### L 400.0001 #### [facility] [address] [place], [address] RBC (Bld) [#/Vol] 5.31 10*6/uL Normal 4.2-5.4 [facility] Comment on above: Performed By: #### L 400.0001 #### [facility] [address] [place], [address] RDW SD 44.6 fl High 35.1-43.9 [facility] Comment on above: Performed By: #### L 400.0001 #### [facility] [address] [place], [address] WBC (Bld) [#/Vol] 12.2 10*3/uL High 4.4-11.0 [facility] Comment on above: Performed By: #### L 400.0001 #### [facility] [address] [place], [address] Chest 1 View (Portable)on Chest 1 View (Portable) [facility] Imaging Services [address] [place] [address] Chest 1 View (Portable) MR#: [id number] Acct: [id number] Name: JULIANA MERIDA Rep #: [id number] : 1960 F 63 From: Rob salinas MD PCP: Bianca Palomares MD Status: REG ER Study: Chest 1 View (Portable) Date of Exam: 03/21/24 Exam# [id number] Ordering Dr: Oswaldo Lo MD [id number] INDICATION: chest pain EXAMINATION/TECHNIQUE: X-RAY - XR Chest 1 View COMPARISON: 12/19/2023. FINDINGS: The lungs are clear. Tortuous and calcified thoracic aorta. The heart is not enlarged. No pleural effusion or pneumothorax. No acute osseous abnormalities. RAD/Chest 1 View (Portable) IMPRESSION: No acute radiographic abnormalities. Electronically Signed: Rob Booker MD at 20:25 EDT , CC: Dr. Oswaldo Lo MD; Bianca Palomares MD Lacing Cutter: Signed Normal [facility] Emergency Department Summary on 03-21-2024 Emergency Department Summary [facility] Medical Records Department [address] [place] [address] Emergency Department Summary 03/21/24 MR#: [id number] Acct: [id number] Name: JULIANA MERIDA Rep #: [id number] : 1960 63 From: Oswaldo Lo MD [...] few days. No exacerbating or alleviating factors. [facility] Medical History Lives in assisted Hx of fracture of hip Wears glasses [...] bisacodyl 10 mg rectal suppository 10 mg [place] .Q24 PRN PRN constipation 12/18/22 Unknown History [...] 12/18/22 Un (more content not included)... Normal [facility] L501.4020on 03-21-2024 TROPONIN-I HS 7 pg/mL Normal 3.0-54.0 [facility] Comment on above: Result Comment: Jerrod sher Note: New Test Units and Gender Specific Reference Ranges. For more information see Policy Stat Procedure [place] High Sensitivity Troponin (TNIH) and attachments. Performed By: #### L 400.0001 #### [facility] [address] [place], [place], [address] L501.5425on 03-21-2024 TROPONIN-I HS 6 pg/mL Normal 3.0-54.0 [facility] Comment on above: Order Comment: COLLE CTOR TO SPECIFY Result Comment: Plea se Note: New Test Units and Gender Specific Reference Ranges. For more information see Policy Stat Procedure [place] High Sensitivity Troponin (TNIH) and attachments. Performed By: #### L 400.0001 #### [facility] [address] [place], [address] Urinalysis, Completeon 03-21 BACTERIA 1+ /hpf Normal None Seen [facility] Comment on above: Order Comment: LEROY TER SPECIMEN Performed By: #### L 400.0001 ####[facility] [address] [place], [address] EPI,SQUAMOUS 5-10 SEEN Normal 5-10 [facility] Comment on above: Order Comment: LEROY TER SPECIMEN Performed By: #### L 400.0001 ####[facility] [address] [place], [address] WBC 5-10 SEEN Normal 0-5 [facility] Comment on above: Order Comment: ELROY TER SPECIMEN Performed By: #### L 400.0001 ####[facility] [address] [place], [address] BILIRUBIN URINE Negative Normal Negative [facility] Comment on above: Order Comment: LEROY TER SPECIMEN Performed By: #### L 400.0001 ####[facility] [address] [place], [address] Clarity (U) Clear Normal Clear [facility] Comment on above: Order Comment: LEROY TER SPECIMEN Performed By: #### L 400.0001 ####[facility] [address] [place], [address] Color (U) Yellow Normal Yellow [facility] Comment on above: Order Comment: LEROY TER SPECIMEN Performed By: #### L 400.0001 ####[facility] [address] [place], [address] GLUCOSE, UR 1000 mg/dl Abnormal Normal [facility] Comment on above: Order Comment: LEROY TER SPECIMEN Performed By: #### L 400.0001 ####[facility] [address] [place], [address] KETONE UR Negative Normal Negative [facility] Comment on above: Order Comment: LEROY TER SPECIMEN Performed By: #### L 400.0001 ####[facility] [address] [place], [address] LEUK ESTERASE 25 /ul Abnormal Negative [facility] Comment on above: Order Comment: LEROY TER SPECIMEN Performed By: #### L 400.0001 ####[facility] [address] [place], [address] Nitrite Ql (U) Negative Normal Negative [facility] Comment on above: Order Comment: LEROY TER SPECIMEN Performed By: #### L 400.0001 ####[facility] [address] [place], [address] OCCULT BLOOD-UR Negative Normal Negative [facility] Comment on above: Order Comment: LEROY TER SPECIMEN Performed By: #### L 400.0001 ####[facility] [address] [place], [address] pH UR 7.0 Normal 5.0 - 8.0 [facility] Comment on above: Order Comment: LEROY TER SPECIMEN Performed By: #### L 400.0001 ####[facility] [address] [place], [address] PROT DIPSTX 15 mg/dl Abnormal Negative [facility] Comment on above: Order Comment: LEROY TER SPECIMEN Performed By: #### L 400.0001 ####[facility] [address] [place], [address] SP.GR. DIPSTX 1.010 Normal 1.002-1.03 0 [facility] Comment on above: Order Comment: LEROY TER SPECIMEN Performed By: #### L 400.0001 ####[facility] [address] [place], [address] UROBILI Normal Normal Normal [facility] Comment on above: Order Comment: LEROY TER SPECIMEN Performed By: #### L 400.0001 ####[facility] [address] [place], [address] Mucus Ql (Urine sed) 0 SEEN Normal [facility] Comment on above: Order Comment: LEROY TER SPECIMEN Performed By: #### L 400.0001 ####[facility] [address] [place], [address] RBC 0 SEEN Normal 0-5 [facility] Comment on above: Order Comment: LEROY TER SPECIMEN Performed By: #### L 400.0001 ####[facility] [address] [place], [address] Bedside Glucoseon 02-07-2024 FINGERSTICK GLU 251 mg/dL High 74-106 [facility] Comment on above: Result Comment: PAO MARS OF PATIENT CARE PER NURSING PROTOCOL Performed By: #### L 400.0001 #### [facility] [address] [place], [address] MR/POSTOP.ANEon 02-07-2024 MR/POSTOP.[facility] Medical Records Department [address] [place] [address] Anesthesia Postop Eval I 02/07/24 1026 MR#: [id number] Acct: [id number] Name: JULIANA MERIDA YANELI Rep #: [id number] : 1960 63 From: Eric Serna PCP: Bianca Palomares MD Status:[facility] Race: C Location: [place] [address] Anesthesia: Postop Eval I Current Vital Signs [...] 1 completed: Yes 02/07/24 1027 Date Eric Serna Cosigner Signature: Date CC: Signed Normal [facility] MR/[id number] 02-07-2024 MR/POSTOPAN2 [facility] Medical Records Department [address] [place] [address] Anesthesia Postop Eval II 02/07/24 1300 MR#: [id number] Acct: [id number] Name: JULIANA MERIDA Rep #: [id number] : 1960 63 From: Eric Monte MD PCP: Bianca Palomares MD Status:[facility] Y Race: C [place] [facility] [place]esthesia Postop Eval I Sum Postop Eval Completion status Anesthesia document: Postop Eval 1 completed: Yes Anesthesia Postop Eval I Summary Anesthesia Postop Eval I Summary: Anesthesia Postop Eval I: Assessment Summary Airway patent Yes 02/07/24 10:27 DISHWASHING MACHINE 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.MDOT Spontaneous unlabored Yes 02/07/24 10:27 DISHWASHING MACHINE REPAIRER.MDOT respirations Mental status Awake,Calm 02/07/24 10:27 DISHWASHING MACHINE REPAIRER.MDOT nausea No 02/07/24 10:27 DISHWASHING MACHINE REPAIRER.MDOT Vomiting No 02/07/24 10:27 DISHWASHING MACHINE REPAIRER.MDOT Anesthesia Postop Eval I: Fluid Summary Crystalloid volume administer 800 02/07/24 10:27 DISHWASHING MACHINE REPAIRER.MDOT (ml) Colloids volume administered ( ml) Blood Product volume administered (ml) Total IV fluid infused 800 02/07/24 10:27 DISHWASHING MACHINE REPAIRER.MDOT Anesthesia Postop Eval I: Summary Notes Anesthesia Complication No 02/07/24 10:27 DISHWASHING MACHINE REPAIRER.MDOT Anesthesia Complication Comment: Post-operative progress note Anesthesia: Postop Eval II Evaluation Mental status: Awake and Calm Pain Level: 1 nausea: No Vomiting: No Complications Anesthesia Complication: No 02/07/24 1300 Date Eric Monte MD Cosigner Signature: Date CC: Signed Normal [facility] Absolute lymphocyte countOrd ered By: Dino Pena on 11-24-2023 Lymphocytes Auto (Unsp spec) [#/Vol] 2.37 10*3/uL 0.83-4.51 [facility] Automated lymphocyte count a s percentage of total leukocytesOrdered By: Dino Pena on 11-24-2023 Lymphocytes/100 WBC Auto (Unsp spec) 20.5 % 19-41 [facility] Basophil percentageOrdered B y: Dino Pena on 11-24-2023 Basophil percentage 0 SEEN /hpf 0-5 [facility] Basophils/100 WBC (Bld) 0.3 % 0-1 [facility] Chloride [Moles/Vol] 104 mmol/L 98-107 [facility] Eosinophils/100 WBC (Bld) 0.6 % 0-5 [facility] Glucose [Mass/Vol] 141 mg/dL 74-106 [facility] Comment on above: Fasting Glucose resu lt greater than or equal to 126 mg/dL suggests DIABETES MELLITUS per A.D.A. criteria. Hemoglobin (Bld) [Mass/Vol] 14.4 g/dL 12.0-15.0 [facility] Monocytes/100 WBC (Bld) 8.4 % 0-10 [facility] Neutrophils (Bld) [#/Vol] 8.0 10*3/uL 2.0-7.7 [facility] Neutrophils/100 WBC (Bld) 69.2 % 47-70 [facility] Potassium [Moles/Vol] 3.9 mmol/L 3.5-5.1 [facility] Sodium [Moles/Vol] 142 mmol/L 136-145 [facility] WBC (Bld) [#/Vol] 11.6 10*3/uL 4.4-11.0 [facility] Bilirubin Test strip Ql (U)O rdered By: Dino Pena on 11-24-2023 Bilirubin Ql (U) Negative Negative [facility] Determination of erythrocyte mean corpuscular volume (MCV)Ordered By: Dino Pena on 11-24-2023 MCV (RBC) [Entitic vol] 89.4 fL 81-99 [facility] Erythrocyte distribution wid th ratioOrdered By: Dino Pena on 11-24-2023 Erythrocyte distribution width (RBC) [Ratio] 15.5 % 11.6-14.6 [facility] Erythrocyte distribution wid th standard deviationOrdered By: Dino Pena on 11-24-2023 Erythrocyte distribution width (RBC) [Entitic vol] 50.6 fL 35.1-43.9 [facility] Hematocrit Auto (Bld) [Volum e fraction]Ordered By: Dino Pena on 11-24-2023 Hematocrit (Bld) [Volume fraction] 43.8 % 37-47 [facility] Immature granulocytes/100 WB C Auto (Bld)Ordered By: Dino Pena on 11-24-2023 Immature granulocytes/100 WBC (Bld) 1.000 % 0.0-0.9 [facility] Comment on above: IG% - Immature Granu locytes (promyelocytes, myelocytes and metamyelocytes) > 1% indicates that a LEFT SHIFT is Present. Ketones Test strip Ql (U)Ord ered By: Dino Pena on 11-24-2023 Ketones Ql (U) Negative Negative [facility] Laboratory - Chemistry and C hemistry - challengeOrdered By: Dino Pena on 11-24-2023 CO2 [Moles/Vol] 33.0 mmol/L 21.0-32.0 [facility] Urea nitrogen/Creatinine [Mass ratio] 17.9 mg/mg 10-20 [facility] - Hematology and Cell countsOrdered By: Dino Pena on 11-24-2023 MCH (RBC) [Entitic mass] 29.4 pg 27.0-32.0 [facility] MCHC (RBC) [Mass/Vol] 32.9 g/dL 32-36 [facility] Nucleated RBC/100 WBC (Bld) [Ratio] 0 % 0-5 [facility] Platelet mean volume (Bld) [Entitic vol] 9.9 fL 6.2-12.0 [facility] Platelets (Bld) [#/Vol] 223 10*3/uL 150-450 [facility] Mucus LM Ql (Urine sed)Order ed By: Dino Pena on 11-24-2023 Mucus Ql (Urine sed) 0 SEEN /hpf [facility] Nitrite Test strip Ql (U)Ord ered By: Dino Pena on 11-24-2023 Nitrite Ql (U) Negative Negative [facility] No Panel InformationOrdered By: Dino Pena on 11-24-2023 Urine RBC 0 SEEN /hpf 0-5 [facility] Estimated Creatinine Clearance Calc 77.96 ml/min [facility] Estimated GFR (MDRD) Amer 89 mL/min >60 [facility] Comment on above: GFR Calc Estimated GFR (MDRD) Non-Af Amer 73 mL/min >60 [facility] Comment on above: Non- GFR Calc Troponin I High Sensitivity 5 pg/mL 3.0-54.0 [facility] Comment on above: Please Note: New Ines t Units and Gender Specific Reference Ranges. For more information see Policy Stat Procedure [place] High Sensitivity Troponin (TNIH) and attachments. Protein Test strip Ql (U)Ord ered By: Dino Pena on 11-24-2023 Protein Ql (U) Negative Negative [facility] RBC Auto (Bld) [#/Vol]Ordere d By: Dino Pena on 11-24-2023 RBC (Bld) [#/Vol] 4.90 10*6/uL 4.2-5.4 [facility] Serum or plasma calcium fabi urement (mass/volume)Ordered By: Dino Pena on 11-24-2023 Calcium [Mass/Vol] 9.0 mg/dL 8.5-10.1 [facility] Serum or plasma creatinine m easurement (mass/volume)Ordered By: Dino Pena on 11-24-2023 Creatinine [Mass/Vol] 0.84 mg/dL 0.55-1.02 [facility] Comment on above: The validity of the calculated GFR & GFRAA in patients over 70 years has not been determined. Clinical correlation is essential. Serum or plasma urea nitroge n measurement (mass/volume)Ordered By: Dino Pena on 11-24-2023 Urea nitrogen [Mass/Vol] 15 mg/dL 7-18 [facility] Squamous epithelial cells de tection in urine sediment by light microscopyOrdered By: Dino Pena on 11-24-2023 Epithelial cells.squamous LM Ql (Urine sed) 0-5 SEEN /hpf 5-10 [facility] Thin prep Papanicolaou smear with manual screeningOrdered By: Dino Pena on 11-24-2023 Thin prep Papanicolaou smear with manual screening 5 5-15 [facility] Urine blood detectionOrdered By: Dino Pena on 11-24-2023 RBC Ql (U) Negative Negative [facility] Urine clarityOrdered By: Migdalia Pena on 11-24-2023 Clarity (U) Clear Clear [facility] Urine color determinationOrd ered By: Dino Pena on 11-24-2023 Color (U) Yellow Yellow [facility] Urine glucose detectionOrder ed By: Dino Pena on 11-24-2023 Glucose Ql (U) Normal mg/dl Normal [facility] Urine leukocyte esterase det ection by dipstickOrdered By: Dino Pena on 11-24-2023 Leukocyte esterase Test strip Ql (U) Negative Negative [facility] Urine pHOrdered By: Dino Pena on 11-24-2023 pH (U) 7.0 [pH] 5.0 - 8.0 [facility] Urine sediment bacteria coun t by microscopy (number/high power field)Ordered By: Dino Pena on 11-24-2023 Bacteria LM.HPF (Urine sed) [#/Area] 0 /[HPF] None Seen [facility] Urine specific gravity measu rementOrdered By: Dino Pena on 11-24-2023 Specific gravity (U) [Rel density] 1.010 1.002-1.03 0 [facility] Urine urobilinogen measureme ntOrdered By: Dino Pena on 11-24-2023 Urobilinogen Ql (U) Normal mg/dl Normal [facility] CT ABDOMEN/PELVIS W/O CONTRA STon 10-05-2023 [...] 10/05/2023 8:25:51 PM Ordering Provider: MAULIK العلي [facility] ([place]) Absolute lymphocyte countOrd ered By: Chilango Laughlin on 09-26-2023 Lymphocytes Auto (Unsp spec) [#/Vol] 2.05 10*3/uL 0.83-4.51 [facility] Anaerobic cultureOrdered By: Chilango Laughlin on 09-26-2023 Bacteria identified Anaer cx Nom (Unsp spec) No anaerobic bacteria isolated. [facility] Automated lymphocyte count a s percentage of total leukocytesOrdered By: Chilango Laughlin on 09-26-2023 Lymphocytes/100 WBC Auto (Unsp spec) 20.9 % 19-41 [facility] Bacteria identified Cx Nom ( Wound)Ordered By: Chilango Laughlin on 09-26-2023 Wound Culture Meth. resistant Stap h. aureus [facility] Basophil percentageOrdered B y: Chilango Laughlin on 09-26-2023 Basophils/100 WBC (Bld) 0.4 % 0-1 [facility] Bilirubin [Mass/Vol] 0.40 mg/dL 0.20-1.00 [facility] Comment on above: For patients on eltr ombopag therapy, use of Dimension [place] TBIL is not recommended. Chloride [Moles/Vol] 106 mmol/L 98-107 [facility] Eosinophils/100 WBC (Bld) 1.3 % 0-5 [facility] Glucose [Mass/Vol] 210 mg/dL 74-106 [facility] Comment on above: Glucose result great er than or equal to 200 mg/dLsuggests DIABETES MELLITUS per A.D.A. criteria. Hemoglobin (Bld) [Mass/Vol] 14.5 g/dL 12.0-15.0 [facility] Monocytes/100 WBC (Bld) 7.7 % 0-10 [facility] Neutrophils (Bld) [#/Vol] 6.8 10*3/uL 2.0-7.7 [facility] Neutrophils/100 WBC (Bld) 69.1 % 47-70 [facility] Potassium [Moles/Vol] 4.5 mmol/L 3.5-5.1 [facility] Comment on above: Moderate Hemolysis, Result may be falsely increased. Protein [Mass/Vol] 6.9 g/dL 6.4-8.2 [facility] Sodium [Moles/Vol] 139 mmol/L 136-145 [facility] WBC (Bld) [#/Vol] 9.8 10*3/uL 4.4-11.0 [facility] Determination of erythrocyte mean corpuscular volume (MCV)Ordered By: Chilango Laughlin on 09-26-2023 MCV (RBC) [Entitic vol] 87.5 fL 81-99 [facility] Erythrocyte distribution wid th ratioOrdered By: Chilango Laughlin on 09-26-2023 Erythrocyte distribution width (RBC) [Ratio] 13.4 % 11.6-14.6 [facility] Erythrocyte distribution wid th standard deviationOrdered By: Chilango Laughlin on 09-26-2023 Erythrocyte distribution width (RBC) [Entitic vol] 42.7 fL 35.1-43.9 [facility] Erythrocyte sedimentation ra teOrdered By: Chilango Laughlin on 09-26-2023 ESR (Bld) [Velocity] 15 mm/h 0-30 [facility] Gram stain for investigation of transfusion reactionOrdered By: Chilango Laughlin on 09-26-2023 Microscopic observation Gram stain Nom (Unsp spec) [facility] Hematocrit Auto (Bld) [Volum e fraction]Ordered By: Chilango Laughlin on 09-26-2023 Hematocrit (Bld) [Volume fraction] 44.9 % 37-47 [facility] Immature granulocytes/100 WB C Auto (Bld)Ordered By: [facility] Laughlin on 09-26-2023 Immature granulocytes/100 WBC (Bld) 0.600 % 0.0-0.9 [facility] Comment on above: IG% - Immature Granu locytes (promyelocytes, myelocytes and metamyelocytes) > 1% indicates that a LEFT SHIFT is Present. Laboratory - Chemistry and C hemistry - challengeOrdered By: Chilango Laughlin on 09-26-2023 Albumin/Globulin [Mass ratio] 1.0 {ratio} 0.9-2.4 [facility] ALP [Catalytic activity/Vol] 60 U/L 45-117 [facility] ALT [Catalytic activity/Vol] 62 U/L 13-56 [facility] CO2 [Moles/Vol] 28.0 mmol/L 21.0-32.0 [facility] Globulin (S) [Mass/Vol] 3.5 g/dL 2.2-4.2 [facility] Urea nitrogen/Creatinine [Mass ratio] 17.4 mg/mg 10-20 [facility] Laboratory - Hematology and Cell countsOrdered By: Chilango Laughlin on 09-26-2023 MCH (RBC) [Entitic mass] 28.3 pg 27.0-32.0 [facility] MCHC (RBC) [Mass/Vol] 32.3 g/dL 32-36 [facility] Nucleated RBC/100 WBC (Bld) [Ratio] 0 % 0-5 [facility] Platelet mean volume (Bld) [Entitic vol] 10.6 fL 6.2-12.0 [facility] Platelets (Bld) [#/Vol] 222 10*3/uL 150-450 [facility] No Panel InformationOrdered By: Chilango Laughlin on 09-26-2023 C-Reactive Protein Extended Range 5.51 mg/L 0.0-3.0 [facility] Comment on above: C-Reactive Protein ( CRP) provides useful information for thediagnosis, therapy and monitoring of inflammatory processesand associated diseases. For the evaluation of Relative Riskfor Cardiovascular Disease, a High Sensitivity CRP (HSCRP)should be ordered. Estimated GFR (MDRD) Amer 93 mL/min >60 [facility] Comment on above: GFR Calc Estimated GFR (MDRD) Non-Af Amer 77 mL/min >60 [facility] Comment on above: Non- GFR Calc RBC Auto (Bld) [#/Vol]Ordere d By: Chilango Laughlin on 09-26-2023 RBC (Bld) [#/Vol] 5.13 10*6/uL 4.2-5.4 [facility] Serum or plasma calcium fabi urement (mass/volume)Ordered By: Chilango Laughlin on 09-26-2023 Calcium [Mass/Vol] 9.4 mg/dL 8.5-10.1 [facility] Serum or plasma creatinine m easurement (mass/volume)Ordered By: Chilango Laughlin on 09-26-2023 Creatinine [Mass/Vol] 0.80 mg/dL 0.55-1.02 [facility] Comment on above: The validity of the calculated GFR & GFRAA in patients over 70 years has not been determined. Clinical correlation is essential. Serum or plasma urea nitroge n measurement (mass/volume)Ordered By: Chilango Laughlin on 09-26-2023 Urea nitrogen [Mass/Vol] 14 mg/dL 7-18 [facility] Thin prep Papanicolaou smear with manual screeningOrdered By: Chilango Laughlin on 09-26-2023 Thin prep Papanicolaou smear with manual screening 3.4 g/dL 3.2-5.0 [facility] Thin prep Papanicolaou smear with manual screening 42 U/L 15-37 [facility] Comment on above: Moderate Hemolysis, Result may be falsely increased. Thin prep Papanicolaou smear with manual screening 5 5-15 [facility] Anaerobic cultureOrdered By: Chilango Laughlin on 08-22-2023 Bacteria identified Anaer cx Nom (Unsp spec) No anaerobic bacteria isolated. [facility] Bacteria identified Anaer cx Nom (Unsp spec) No anaerobic bacteria isolated. [facility] Bacteria identified Cx Nom ( Wound)Ordered By: Chilango Laughlin on 08-22-2023 Wound Culture Meth. resistant Stap h. aureus [facility] Wound Culture Meth. resistant Stap h. aureus [facility] Gram stain for investigation of transfusion reactionOrdered By: Chilango Laughlin on 08-22-2023 Microscopic observation Gram stain Nom (Unsp spec) [facility] Microscopic observation Gram stain Nom (Unsp spec) [facility] Anaerobic cultureOrdered By: Chilango Laughlin on 07-18-2023 Bacteria identified Anaer cx Nom (Unsp spec) No anaerobic bacteria isolated. [facility] Bacteria identified Anaer cx Nom (Unsp spec) No anaerobic bacteria isolated. [facility] Bacteria identified Cx Nom ( Wound)Ordered By: Chilango Laughlin on 07-18-2023 Wound Culture Meth. resistant Stap h. aureus [facility] Wound Culture Meth. resistant Stap h. aureus [facility] Gram stain for investigation of transfusion reactionOrdered By: Chilango Laughlin on 07-18-2023 Microscopic observation Gram stain Nom (Unsp spec) [facility] Microscopic observation Gram stain Nom (Unsp spec) [facility] Anaerobic cultureOrdered By: Dr. Laughlin on 11-25-2022 Bacteria identified Anaer cx Nom (Unsp spec) No anaerobic bacteria isolated. [facility] Bacteria identified Cx Nom ( Wound)Ordered By: Dr. Laughlin on 11-24-2022 Wound Culture Klebsiella pneumonia e sp pneum [facility] Wound Culture Proteus mirabilis [facility] Gram stain for investigation of transfusion reactionOrdered By: Dr. Laughlin on 11-23-2022 Microscopic observation Gram stain Nom (Unsp spec) [facility] Anaerobic cultureOrdered By: Chilango Laughlin on 11-22-2022 Bacteria identified Anaer cx Nom (Unsp spec) No anaerobic bacteria isolated. [facility] Bacteria identified Cx Nom ( Wound)Ordered By: Chilango Laughlin on 11-22-2022 Wound Culture Klebsiella pneumonia e sp pneum [facility] Wound Culture Proteus mirabilis [facility] Gram stain for investigation of transfusion reactionOrdered By: Chilango Laughlin on 11-22-2022 Microscopic observation Gram stain Nom (Unsp spec) [facility] XR ANKLE AND FOOT 6 VIEWS RI Ton 10-17-2022 XR ANKLE AND FOOT 6 VIEWS [...] the resident's findings and interpretation. Interpreted by: Mravel Batista MD Preliminary Report By: Can Pickett Electronically signed By Marvel Batista MD Dictated Date: 10/17/2022 4:50:41 AM Prelim Date: 10/17/2022 4:59:49 AM Sign Date: 10/17/2022 5:04:00 AM Ordering Provider: MAKENNA HYATT [facility] ([place]) XR KNEE THREE VIEWS RIGHTon 10-17-2022 XR [...] 10/17/2022 5:02:30 AM Ordering Provider: MAKENNA HYATT [facility] ([place]) LABORATORYOrdered By: Cici Mcnally on 04-28-2022 Basophil, [...] 247 mg/dL Abnormal 74 - 99 mg/dL [facility] LABORATORYOrdered By: Savanna Allen on 12-01-2021 Appearance [...] Routine cultures are held for 5 days. [facility] LABORATORYOrdered By: Jeremy Waters on 11-30-2021 Adenovirus [...] Interpretation Code Not Detected Auto Viro/Sero SS Illness or injury onset date and time [id number] Invalid Interpretation Code Auto Viro/Sero SS M. pneumoniae DNA IRISH+non-probe Ql (Nph) Not Detected *NA* (11/30/21 8:58 PM) Invalid Interpretation Code Not Detected Auto Viro/Sero SS Parainfluenza virus 1 RNA IRISH+non-probe Ql (Nph) Not Detected *NA* (11/30/21 8:58 PM) Invalid Interpretation Code Not Detected Auto Viro/Sero SS Parainfluenza virus 2 RNA IRISH+non-probe Ql (Nph) Not Detected *NA* (11/30/21 8:58 PM) Invalid Interpretation Code Not Detected Auto Viro/Sero SS Parainfluenza virus 3 RNA IRISH+non-probe Ql (Nph) Not Detected *NA* (11/30/21 8:58 PM) Invalid Interpretation Code Not Detected Auto Viro/Sero SS Parainfluenza virus 4 RNA IRISH+non-probe Ql (Nph) Not Detected *NA* (11/30/21 8:58 PM) Invalid Interpretation Code Not Detected Auto Viro/Sero SS Patient was hospitalized because of this condition No (11/30/21 8:58 PM) Invalid Interpretation Code Auto Viro/Sero SS status Not (11/30/21 8:58 PM) Invalid Interpretation Code Auto Viro/Sero SS RESIDES IN A CONGREGATE CARE SETTING:FIND:PT:^PATIE NT:ORD: No (11/30/21 8:58 PM) Invalid Interpretation Code Auto Viro/Sero SS Rhinovirus+Enterovirus RNA IRISH+non-probe Ql (Nph) Not Detected *NA* (11/30/21 8:58 PM) Invalid Interpretation Code Not Detected Auto Viro/Sero SS RSV RNA IRISH+non-probe Ql (Nph) Not Detected *NA* (11/30/21 8:58 PM) Invalid Interpretation Code Not Detected Auto Viro/Sero SS SARS-CoV-2 (COVID-19) RNA IRISH+probe [...] Invalid Interpretation Code 4.50 - 10.80 10^3/mcL AH Remisol SS LABORATORYOrdered By: Rola Malone on 11-30-2021 Natriuretic peptide.B prohormone N-Terminal [Mass/Vol] 23 pg/mL Invalid Interpretation Code 0 - 1800 pg/mL Auto Chem SS Comprehensive metabolic 2000 panelon 11-29-2021 Albumin [Mass/Vol] 3.6 g/dL 3.4 - 5.0 g/dL [facility] ALP [Catalytic activity/Vol] 80 U/L 46 - 116 U/L [facility] ALT With P-5'-P [Catalytic activity/Vol] 51 U/L 12 - 78 U/L [facility] Anion gap [Moles/Vol] 9 mmol/L 8 - 16 mmol/L [facility] AST With P-5'-P [Catalytic activity/Vol] 31 U/L 15 - 46 U/L [facility] Bilirubin [Mass/Vol] 0.2 mg/dL 0.2 - 1 .0 mg/dL [facility] Calcium [Mass/Vol] 8.8 mg/dL 8.5 - 10. 1 mg/dL [facility] Chloride [Moles/Vol] 102 mmol/L 98 - 10 7 mmol/L [facility] CO2 [Moles/Vol] 25 mmol/L 21 - 32 mmol/L [facility] Creatinine [Mass/Vol] 0.67 mg/dL 0.51 - 0.95 mg/dL [facility] Estimated Glomerular Filtration Rate 100 mL/min/1.73m >=60 mL/min/1.7 3m [facility] Glucose [Mass/Vol] 264 mg/dL High 70 - 99 mg/dL [facility] Potassium [Moles/Vol] 4.2 mmol/L 3.5 - 5.1 mmol/L [facility] Protein [Mass/Vol] 7.0 g/dL 6.4 - 8.2 g/dL [facility] Sodium [Moles/Vol] 136 mmol/L 136 - 145 mmol/L [facility] Urea nitrogen [Mass/Vol] 10 mg/dL 7 - 18 mg/dL [facility] BD DXA - AXIAL SKELETONon BD DXA - AXIAL SKELETON * * *Final Report* * * DATE OF EXAM: Aug 07 2021 12:03PM [facility] 0804 - BD DXA - AXIAL SKELETON [...] Osteoporosis Less than or equal to -2.5 Lacing Cutter: AKIL Transcribe Date/Time: Aug 07 2021 12:13P Dictated by : RINA YOST MD This examination was interpreted and the report reviewed and electronically signed by: RINA YOST MD on Aug 07 2021 12:14PM EST [id number] Normal [facility] Office Visiton 01-18-2017 Documentation of current medications (procedure) Done Invalid Interpretation Code [facility] Work Phone: [phone] Protein mass conc Done [facility] Work Phone: [phone] Tobacco smoking status NHIS Never smoker [facility] Work Phone: [phone] [facility] Never smoker Invalid Interpretation Code [facility] Work Phone: [phone] Office Visiton 12-12-2016 Documentation of current medications (procedure) Done Invalid Interpretation Code [facility] Work Phone: [phone] Tobacco use CP Never smoker Invalid Interpretation Code [facility] Work Phone: [phone] Lab Report: Bedside Glucoseo n 11-27-2016 Glucose 123 mg/dL High 70-110 [facility] Work Phone: [phone] Glucose mass conc 123 mg/dL High 70-110 [facility] Work Phone: [phone] Lab Report: Hemoglobin A1con 11-22-2016 HbA1c 7.4 % High 4.2-6.3 [facility] Work Phone: [phone] Lab Report: Partial Thrombop last Timeon 11-22-2016 aPTT 30.9 s Invalid Interpretation Code 24.1-36.2 [facility] Work Phone: [phone] Lab Report: Prothrombin Time w/INRon 11-22-2016 Coagulation tissue factor induced in platelet poor plasma 12.6 s Invalid Interpretation Code 11.7-14.9 [facility] Work Phone: [phone] INR Coag RelTime (PPP) 1.0 {INR} [facility] Work Phone: [phone] INR in blood by coagulation 1.0 {INR} Invalid Interpretation Code [facility] Work Phone: [phone] Office Visiton 11-14-2016 Documentation of current medications (procedure) Done Invalid Interpretation Code [facility] Work Phone: [phone] Tobacco use [facility] Never smoker Invalid Interpretation Code [facility] Work Phone: [phone] Office Visiton 08-27-2016 Documentation of current medications (procedure) Done Invalid Interpretation Code [facility] Work Phone: [phone] Tobacco use [facility] Never smoker Invalid Interpretation Code [facility] Work Phone: [phone] Vital Signs Date Time Vital Sign Value Performing Clinician Facility 01-25-2025 06:00-0400 Diastolic blood pressure 87 mm[Hg] Dr. Mariah Atkinson MD Work Phone: [facility] 01-25-2025 06:00-0400 Heart rate 90 /min Dr. Mariah Atkinson MD Work Phone: [facility] 01-25-2025 06:00-0400 Respiratory rate 18 /min Dr. Mariah Atkinson MD Work Phone: [facility] 01-25-2025 06:00-0400 SaO2% (BldA) [Mass fraction] 97 % Dr. Mariah Atkinson MD Work Phone: [facility] 01-25-2025 06:00-0400 Systolic blood pressure 178 mm[Hg] Dr. Mariah Atkinson MD Work Phone: [facility] 01-25-2025 02:29-0400 Body temperature 98.1 [degF] Dr. Mariah Atkinson MD Work Phone: [facility] 01-25-2025 00:00-0400 Body mass index (BMI) [Ratio] 35.5 kg/m2 Dr. Mariah Atkinson MD Work Phone: [facility] 01-25-2025 00:00-0400 Body weight 90.[address] Mariah Atkinson MD Work Phone: [facility] 01-24-2025 22:34-0400 Body height 160.[address] Mariah Atkinson MD Work Phone: [facility] 01-21-2025 09:25-0400 Body temperature 97.1 [degF] Dr. Mariah Atkinson MD Work Phone: [facility] 01-21-2025 09:25-0400 Diastolic blood pressure 61 mm[Hg] Dr. Mariah Atkinson MD Work Phone: [facility] 01-21-2025 09:25-0400 Heart rate 85 /min Dr. Mariah Atkinson MD Work Phone: [facility] 01-21-2025 09:25-0400 Respiratory rate 16 /min Dr. Mariah Atkinson MD Work Phone: [facility] 01-21-2025 09:25-0400 SaO2% (BldA) [Mass fraction] 97 % Dr. Mariah Atkinson MD Work Phone: [facility] 01-21-2025 09:25-0400 Systolic blood pressure 129 mm[Hg] Dr. Mariah Atkinson MD Work Phone: [facility] 01-21-2025 07:45-0400 Body height 161.[address] Mariah Atkinson MD Work Phone: [facility] 01-21-2025 07:45-0400 Body mass index (BMI) [Ratio] 34.9 kg/m2 Dr. Mariah Atkinson MD Work Phone: [facility] 01-21-2025 07:45-0400 Body weight 90.[address] Mariah Atkinson MD Work Phone: [facility] 09-27-2024 04:39-0400 Body temperature 98 [degF] Dr. Dino Pena MD Work Phone: 5(139)868-791082 [place] [address] 09-27-2024 04:39-0400 Diastolic blood pressure 82 mm[Hg] Dr. Dino Pena MD Work Phone: 3(712)902-818056 [place] [address] 09-27-2024 04:39-0400 Heart rate 72 /min Dr. Dino Pena MD Work Phone: 6(101)586-384156 [place] [address] 09-27-2024 04:39-0400 Respiratory rate 18 /min Dr. Dino Pena MD Work Phone: 5(157)252-381956 [place] [address] 09-27-2024 04:39-0400 SaO2% (BldA) [Mass fraction] 93 % Dr. Dino Pena MD Work Phone: 2(023)632-310682 [place] [address] 09-27-2024 04:39-0400 Systolic blood pressure 160 mm[Hg] Dr. Dino Pena MD Work Phone: 7(916)275-575456 [place] [address] 09-27-2024 01:36-0400 Body height 160.[address] Dino Pena MD Work Phone: 3(528)956-638156 [place] [address] 09-13-2024 04:51-0500 Diastolic blood pressure 61 mm[Hg] Dr. Dino Pena MD Work Phone: 4(169)937-926882 [place] [address] 09-13-2024 04:51-0500 Heart rate 77 /min Dr. Dino Pena MD Work Phone: 7(439)942-329582 [place] [address] 09-13-2024 04:51-0500 Inhaled oxygen flow rate 2 L/min Dr. Dino Pena MD Work Phone: 8(758)215-333182 [place] [address] 09-13-2024 04:51-0500 Respiratory rate 19 /min Dr. Dino Pena MD Work Phone: 7(064)425-377282 [place] [address] 09-13-2024 04:51-0500 SaO2% (BldA) [Mass fraction] 95 % Dr. Dino Pena MD Work Phone: [facility] 09-13-2024 04:51-0500 Systolic blood pressure 111 mm[Hg] Dr. Dino Pena MD Work Phone: [facility] 09-13-2024 00:52-0500 Body temperature 98 [degF] Dr. Dino Pena MD Work Phone: [facility] 09-12-2024 22:06-0500 Body mass index (BMI) [Ratio] 38.1 kg/m2 Dr. Dino Pena MD Work Phone: [facility] 09-12-2024 22:06-0500 Body weight 97.[address] Dino Pena MD Work Phone: [facility] 07-27-2024 13:31-0500 Body temperature 97.7 [degF] [facility] 07-27-2024 13:31-0500 Diastolic blood pressure 74 mm[Hg] [facility] 07-27-2024 13:31-0500 Heart rate 70 /min [facility] 07-27-2024 13:31-0500 Respiratory rate 16 /min [facility] 07-27-2024 13:31-0500 SaO2% (BldA) [Mass fraction] 97 % [facility] 07-27-2024 13:31-0500 Systolic blood pressure 130 mm[Hg] [facility] 11-24-2023 21:43-0400 Body temperature 97.1 [degF] Dr. Chilango Laughlin Work Phone: [facility] 11-24-2023 21:43-0400 Diastolic blood pressure 73 mm[Hg] Dr. Chilango Laughlin Work Phone: [facility] 11-24-2023 21:43-0400 Heart rate 81 /min Dr. Chilango Laughlin Work Phone: [facility] 11-24-2023 21:43-0400 Respiratory rate 16 /min Dr. Chilango Laughlin Work Phone: [facility] 11-24-2023 21:43-0400 SaO2% (BldA) [Mass fraction] 95 % Dr. Chilango Laughlin Work Phone: [facility] 11-24-2023 21:43-0400 Systolic blood pressure 161 mm[Hg] Dr. Chilango Laughlin Work Phone: [facility] 11-24-2023 16:26-0400 Body height 160.[address] Chilango Laughlin Work Phone: [facility] 11-24-2023 16:26-0400 Body mass index (BMI) [Ratio] 38.7 kg/m2 Dr. Chilango Laughlin Work Phone: [facility] 11-24-2023 16:26-0400 Body weight 99.[address] Chilango Laughlin Work Phone: [facility] 11-21-2023 08:45-0400 Body temperature 96.6 [degF] Dr. Chilango Laughlin Work Phone: [facility] 11-21-2023 08:45-0400 Diastolic blood pressure 72 mm[Hg] Dr. Chilango Laughlin Work Phone: [facility] 11-21-2023 08:45-0400 Heart rate 84 /min Dr. Chilango Laughlin Work Phone: [facility] 11-21-2023 08:45-0400 Respiratory rate 15 /min Dr. Chilango Laughlin Work Phone: [facility] 11-21-2023 08:45-0400 Systolic blood pressure 146 mm[Hg] Dr. Chilango Laughlin Work Phone: [facility] 11-07-2023 09:41-0400 Body temperature 97.5 [degF] Dr. Chilango Laughlin Work Phone: [facility] 11-07-2023 09:41-0400 Diastolic blood pressure 47 mm[Hg] Dr. Chilango Laughlin Work Phone: [facility] 11-07-2023 09:41-0400 Heart rate 67 /min Dr. Chilango Laughlin Work Phone: [facility] 11-07-2023 09:41-0400 Respiratory rate 18 /min Dr. Chilango Laughlin Work Phone: [facility] 11-07-2023 09:41-0400 Systolic blood pressure 111 mm[Hg] Dr. Chilango Laughlin Work Phone: [facility] 10-10-2023 09:50-0400 Body temperature 97.4 [degF] Dr. Chilango Laughlin Work Phone: [facility] 10-10-2023 09:50-0400 Diastolic blood pressure 52 mm[Hg] Dr. Chilango Laughlin Work Phone: [facility] 10-10-2023 09:50-0400 Heart rate 80 /min Dr. Chilango Laughlin Work Phone: [facility] 10-10-2023 09:50-0400 Respiratory rate 18 /min Dr. Chilango Laughlin Work Phone: [facility] 10-10-2023 09:50-0400 Systolic blood pressure 113 mm[Hg] Dr. Chilango Laughlin Work Phone: [facility] 09-20-2023 11:29-0500 Body temperature 97.5 [degF] Chair [place] Work Phone: [facility] 09-20-2023 11:29-0500 Diastolic blood pressure 80 mm[Hg] Chair [place] Work Phone: [facility] 09-20-2023 11:29-0500 Heart rate 86 /min Chair [place] Work Phone: [facility] 09-20-2023 11:29-0500 Respiratory rate 18 /min Chair [place] Work Phone: [facility] 09-20-2023 11:29-0500 SaO2% (BldA) [Mass fraction] 96 % Chair [place] Work Phone: [facility] 09-20-2023 11:29-0500 Systolic blood pressure 129 mm[Hg] Chair [place] Work Phone: [facility] 09-05-2023 09:29-0500 Body temperature 96.3 [degF] Dr. Chilango Laughlin Work Phone: [facility] 09-05-2023 09:29-0500 Diastolic blood pressure 65 mm[Hg] Dr. Chilango Laughlin Work Phone: [facility] 09-05-2023 09:29-0500 Heart rate 77 /min Dr. Chilango Laughlin Work Phone: [facility] 09-05-2023 09:29-0500 Respiratory rate 18 /min Dr. Chilango Laughlin Work Phone: [facility] 09-05-2023 09:29-0500 Systolic blood pressure 132 mm[Hg] Dr. Chilango Laughlin Work Phone: [facility] 08-08-2023 09:02-0500 Body temperature 96.5 [degF] Dr. Chilango Laughlin Work Phone: [facility] 08-08-2023 09:02-0500 Diastolic blood pressure 60 mm[Hg] Dr. Chilango Laughlin Work Phone: [facility] 08-08-2023 09:02-0500 Heart rate 84 /min Dr. Chilango Laughlin Work Phone: [facility] 08-08-2023 09:02-0500 Respiratory rate 20 /min Dr. Chilango Laughlin Work Phone: [facility] 08-08-2023 09:02-0500 Systolic blood pressure 112 mm[Hg] Dr. Chilango Laughlin Work Phone: [facility] 07-11-2023 08:53-0500 Body temperature 96.3 [degF] Dr. Chilango Laughlin Work Phone: [facility] 07-11-2023 08:53-0500 Diastolic blood pressure 62 mm[Hg] Dr. Chilango Laughlin Work Phone: [facility] 07-11-2023 08:53-0500 Heart rate 81 /min Dr. Chilango Laughlin Work Phone: [facility] 07-11-2023 08:53-0500 Respiratory rate 18 /min Dr. Chilango Laughlin Work Phone: [facility] 07-11-2023 08:53-0500 Systolic blood pressure 114 mm[Hg] Dr. Chilango Laughlin Work Phone: [facility] 06-13-2023 09:52-0500 Body temperature 95.6 [degF] Dr. Chilango Laughlin Work Phone: [facility] 06-13-2023 09:52-0500 Diastolic blood pressure 62 mm[Hg] Dr. Chilango Laughlin Work Phone: [facility] 06-13-2023 09:52-0500 Heart rate 97 /min Dr. Chilango Laughlin Work Phone: [facility] 06-13-2023 09:52-0500 Respiratory rate 16 /min Dr. Chilango Laughlin Work Phone: [facility] 06-13-2023 09:52-0500 Systolic blood pressure 142 mm[Hg] Dr. Chilango Laughlin Work Phone: [facility] 05-02-2023 09:16-0400 Body temperature 96.5 [degF] Dr. Bianca Palomares [facility] 05-02-2023 09:16-0400 Diastolic blood pressure 66 mm[Hg] Dr. Bianca Palomares [facility] 05-02-2023 09:16-0400 Heart rate 64 /min Dr. Bianca Palomares [facility] 05-02-2023 09:16-0400 Respiratory rate 16 /min Dr. Bianca Palomares [facility] 05-02-2023 09:16-0400 Systolic blood pressure 135 mm[Hg] Dr. Bianca Palomares [facility] 04-11-2023 09:55-0400 Body temperature 96 [degF] Dr. Bianca Palomares [facility] 04-11-2023 09:55-0400 [facility]astolic blood [facility] 63 [facility] 09:55-0400 Heart rate 66 /min Dr. Bianca Palomares [facility] 04-11-2023 09:55-0400 Respiratory rate 18 /min Dr. Bianca Palomares [facility] 04-11-2023 09:55-0400 Systolic blood pressure 114 mm[Hg] Dr. Bianca Palomares [facility] 03-14-2023 09:18-0400 Body temperature 96.8 [degF] Dr. Bianca Palomares [facility] 03-14-2023 09:18-0400 Diastolic blood pressure 66 mm[Hg] Dr. Bianca Palomares [facility] 03-14-2023 09:18-0400 Heart rate 73 /min Dr. Bianca Palomares [facility] 03-14-2023 09:18-0400 Respiratory rate 18 /min Dr. Bianca Palomares [facility] 03-14-2023 09:18-0400 Systolic blood pressure 122 mm[facility] 03-13-[facility]23 13:01-0400 Body temperature 97 [degF] Chair [place] Work Phone: [facility] 03-13-2023 13:01-0400 Diastolic blood pressure 67 mm[Hg] Chair [place] Work Phone: [facility] 03-13-2023 13:01-0400 Heart rate 72 /min Chair [place] Work Phone: [facility] 03-13-2023 13:01-0400 Respiratory rate 18 /min Chair [place] Work Phone: [facility] 03-13-2023 13:01-0400 Systolic blood pressure 117 mm[Hg] Chair [place] Work Phone: [facility] 02-07-2023 09:16-0400 Body temperature 97 [degF] Dr. Chilango Laughlin Work Phone: [facility] 02-07-2023 09:16-0400 Diastolic blood pressure 55 mm[Hg] Dr. Chilango Laughlin Work Phone: [facility] 02-07-2023 09:16-0400 Heart rate 72 /min Dr. Chilango Laughlin Work Phone: [facility] 02-07-2023 09:16-0400 Respiratory rate 18 /min Dr. Chilango Laughlin Work Phone: [facility] 02-07-2023 09:16-0400 Systolic blood pressure 106 mm[Hg] Dr. Chilango Laughlin Work Phone: [facility] 01-16-2023 12:52-0400 Body temperature 98.2 [degF] Dr. Chilango Laughlin Work Phone: [facility] 01-16-2023 12:52-0400 Diastolic blood pressure 70 mm[Hg] Dr. Chilango Laughlin Work Phone: [facility] 01-16-2023 12:52-0400 Heart rate 64 /min Dr. Chilango Laughlin Work Phone: [facility] 01-16-2023 12:52-0400 Respiratory rate 16 /min Dr. Chilango Laughlin Work Phone: [facility] 01-16-2023 12:52-0400 SaO2% (BldA) [Mass fraction] 96 % Dr. Chilango Laughlin Work Phone: [facility] 01-16-2023 12:52-0400 Systolic blood pressure 112 mm[Hg] Dr. Chilango Laughlin Work Phone: [facility] 01-11-2023 13:25-0400 Body temperature 97.8 [degF] Dr. Chilango Laughlin Work Phone: [facility] 01-11-2023 13:25-0400 Diastolic blood pressure 59 mm[Hg] Dr. Chilango Laughlin Work Phone: [facility] 01-11-2023 13:25-0400 Heart rate 72 /min Dr. Chilango Laughlin Work Phone: [facility] 01-11-2023 13:25-0400 Respiratory rate 18 /min Dr. Chilango Laughlin Work Phone: [facility] 01-11-2023 13:25-0400 Systolic blood pressure 120 mm[Hg] Dr. Chilango Laughlin Work Phone: [facility] 12-06-2022 09:36-0400 Body temperature 96.6 [degF] Dr. Chilango Laughlin Work Phone: [facility] 12-06-2022 09:36-0400 Diastolic blood pressure 72 mm[Hg] Dr. Chilango Laughlin Work Phone: [facility] 12-06-2022 09:36-0400 Heart rate 73 /min Dr. Chilango Laughlin Work Phone: [facility] 12-06-2022 09:36-0400 Respiratory rate 18 /min Dr. Chilango Laughlin Work Phone: [facility] 12-06-2022 09:36-0400 Systolic blood pressure 122 mm[Hg] Dr. Chilango Laughlin Work Phone: [facility] 10-17-2022 05:30-0400 Diastolic Blood Pressure Non-Invasive [address] MAKENNA HYATT MD [facility] 10-17-2022 05:30-0400 Heart rate 75 /min DR MAKENNA HYATT MD [facility] 10-17-2022 05:30-0400 Respiratory rate 18 /min DR MAKENNA HYATT MD [facility] 10-17-2022 05:30-0400 Systolic Blood Pressure Non-Invasive [address] MAKENNA HYATT MD [facility] 10-17-2022 04:05-0400 Body temperature 99.32 [degF] DR MAKENNA HYATT MD [facility] 10-17-2022 04:05-0400 Diastolic Blood Pressure Non-Invasive [address] MAKENNA HYATT MD [facility] 10-17-2022 04:05-0400 Heart rate 72 /min DR MAKENNA HYATT MD [facility] 10-17-2022 04:05-0400 Respiratory rate 18 /min DR MAKENNA HYATT MD [facility] 10-17-2022 04:05-0400 Systolic Blood Pressure Non-Invasive [address] MAKENNA HYATT MD [facility] 09-05-2022 09:41-0500 Diastolic blood pressure 73 mm[Hg] [facility] 09-05-2022 09:41-0500 Heart rate 78 /min [facility] 09-05-2022 09:41-0500 Systolic blood pressure 131 mm[Hg] [facility] 04-28-2022 17:23-0400 Body temperature 98.6 [degF] TAVIA NORRIS MD [facility] 04-28-2022 17:23-0400 Diastolic blood pressure 49 mm[Hg] TAVIA NORRIS MD [facility] 04-28-2022 17:23-0400 Heart rate 71 /min TAVIA NORRIS MD [facility] 04-28-2022 17:23-0400 Respiratory rate 18 /min TAVIA NORRIS MD [facility] 04-28-2022 17:23-0400 Systolic blood pressure 179 mm[Hg] TAVIA NORRIS MD [facility] 03-07-2022 09:32-0400 Body temperature 98.2 [degF] [facility] [place] Work Phone: [facility] 03-07-2022 09:32-0400 Body weight 91.4 kg [facility] [place] Work Phone: [facility] 03-07-2022 09:32-0400 Diastolic blood pressure 76 mm[Hg] [facility] [place] Work Phone: [facility] 03-07-2022 09:32-0400 Heart rate 69 /min [facility] [place] Work Phone: [facility] 03-07-2022 09:32-0400 Respiratory rate 18 /min [facility] [place] Work Phone: [facility] 03-07-2022 09:32-0400 Systolic blood pressure 125 mm[Hg] [facility] [place] Work Phone: [facility] 01-31-2022 08:52-0400 Body temperature 97.7 [degF] Berenice Edmond PA-C Work Phone: [facility] 01-31-2022 08:52-0400 Diastolic blood pressure 76 mm[Hg] Berenice Barile PA-C Work Phone: [facility] 01-31-2022 08:52-0400 Heart rate 78 /min Berenice Barinubia PA-C Work Phone: [facility] 01-31-2022 08:52-0400 SaO2% (BldA) [Mass fraction] 92 % Berenice Barile PA-C Work Phone: [facility] 01-31-2022 08:52-0400 Systolic blood pressure 120 mm[Hg] Berenice Barile PA-C Work Phone: [facility] 12-13-2021 09:33-0400 Diastolic blood pressure 58 mm[Hg] Ronaldo Villarreal MD Work Phone: [facility] 12-13-2021 09:33-0400 Heart rate 86 /min Ronaldo Villarreal MD Work Phone: [facility] 12-13-2021 09:33-0400 Respiratory rate 15 /min Ronaldo Villarreal MD Work Phone: [facility] 12-13-2021 09:33-0400 SaO2% (BldA) [Mass fraction] 98 % Ronaldo Villarreal MD Work Phone: [facility] 12-13-2021 09:33-0400 Systolic blood pressure 133 mm[Hg] Ronaldo Villarreal MD Work Phone: [facility] 12-01-2021 05:50-0400 Diastolic blood pressure 57 mm[Hg] LANA ZAPIEN DO [facility] 12-01-2021 05:50-0400 Heart rate 94 /min LANA ZAPIEN DO [facility] 12-01-2021 05:50-0400 Respiratory rate 15 /min LANA ZAPIEN DO [facility] 12-01-2021 05:50-0400 Systolic blood pressure 116 mm[Hg] LANA ZAPIEN DO [facility] 12-01-2021 02:13-0400 Body temperature 100.04 [degF] LANA ZAPIEN DO [facility] 12-01-2021 02:13-0400 Diastolic blood pressure 77 mm[Hg] LANA ZAPIEN DO [facility] 12-01-2021 02:13-0400 Heart rate 104 /min LANA ZAPIEN DO [facility] 12-01-2021 02:13-0400 Respiratory rate 18 /min LANA ZAPIEN DO [facility] 12-01-2021 02:13-0400 Systolic blood pressure 151 mm[Hg] LANA ZAPIEN DO [facility] 11-30-2021 20:11-0400 Diastolic blood pressure 56 mm[Hg] LANA ZAPIEN DO [facility] 11-30-2021 20:11-0400 Heart rate 93 /min LANA ZAPIEN DO [facility] 11-30-2021 20:11-0400 Systolic blood pressure 92 mm[Hg] LANA ZAPIEN DO [facility] 11-30-2021 18:28-0400 Body temperature 100.4 [degF] LANA ZAPIEN DO [facility] 11-30-2021 18:28-0400 Body weight 87.3 kg LANA ZAPIEN DO [facility] 11-30-2021 18:28-0400 Heart rate 114 /min LANA ZAPIEN DO [facility] 11-30-2021 18:28-0400 Respiratory rate 20 /min LANA ZAPIEN DO [facility] 11-29-2021 13:15-0400 Body temperature 97.2 [degF] Chair [place] Work Phone: [facility] 11-29-2021 13:15-0400 Diastolic blood pressure 73 mm[Hg] Chair [place] Work Phone: [facility] 11-29-2021 13:15-0400 Heart rate 82 /min Chair [place] Work Phone: [facility] 11-29-2021 13:15-0400 Respiratory rate 20 /min Chair [place] Work Phone: [facility] 11-29-2021 13:15-0400 Systolic blood pressure 116 mm[Hg] Chair [place] Work Phone: [facility] 03-23-2016 14:49-0400 Weight 78.[address] [facility] Sports Medicine [facility] Orthopaedics Work Phone: Encounters Encounter Date Encounter Type Care Provider Facility Start: 01-24-2025 End: 01-25-2025 Emergency department patient visit Dr. Mariah Atkinson MD Work Phone: -Emergency Department Work Phone: Start: 01-21-2025 ambulatory Fer Brandon Facility :[facility] Start: 01-21-2025 Non-patient / Non-visit Fer Ambrose sd DO -[facility] Start: 01-21-2025 End: 01-21-2025 Admission to same day surgery center Fer Brandon DO -Endoscopy Work Phone: Start: 01-21-2025 End: 01-21-[address] Mariah Atkinson MD Work Phone: -Endoscopy Start: 01-20-2025 End: 01-20-2025 Telephone encounter Funmilayo Pope MD Work Phone: [facility] General Rheumatology and Arthritis Start: 11-20-2024 End: 11-20-2024 Patient encounter procedure Gianna Nelson [employer] MONITORAndrew -[facility] Work Phone: Start: 11-20-2024 End: 11-20-2024 ambulatory Gianna Nelson Facility:[facility] Start: 10-01-2024 End: 10-01-2024 ambulatory MAULIK DIAMOND-DELMISERT Facility:A Start: 10-01-2024 End: 10-01-2024 Patient encounter procedure MAULIK DIAMOND-BACHERT DO [facility] Start: 09-27-2024 End: 09-27-2024 Emergency department patient visit Dr. Dino Pena MD Work Phone: -Emergency Department Work Phone: Start: 09-12-2024 End: 09-13-2024 Emergency department patient visit Dr. Dino Pena MD -Emergency Department Work Phone: Start: 07-27-2024 End: 07-27-2024 Patient encounter procedure Chair [place] [facility] Comment on above: Age-related osteopor osis without current pathological fracture (Primary Dx) Start: 07-27-2024 End: 07-27-2024 ambulatory Chair 3 [facility] [place] [facility] [place] [facility] Start: 07-16-2024 End: 07-16-2024 Telephone encounter Funmilayo Pope MD Work Phone: [facility] Arthritis & Rheumatology Comment on above: Medication Preauthor ization ([employer] [place] Approved [id number] [facility] Medicare/Portal 07.15.24-07.15.25 2 visits) Start: 06-04-2024 End: 06-04-2024 ambulatory PHY WO ID REFERRING Facility:A Start: 06-04-2024 End: 06-04-2024 Patient encounter procedure PHY WO ID REFERRING [facility] Start: 04-08-2024 End: 04-08-2024 Emergency department patient visit Rancho Orozco Facility:[facility] Start: 03-25-2024 ambulatory Bianca Gudla Facility:[facility] Start: 03-23-2024 End: 03-23-2024 Telephone encounter Funmilayo Pope MD Work Phone: [facility] Comment on above: Appointment Start: 03-21-2024 End: 03-22-2024 Emergency department patient visit Oswaldo Lo Facility:[facility] Start: 02-20-2024 End: 03-14-2024 ambulatory Bianca Gudla Facility:[facility] Start: 02-12-2024 ambulatory Beata Liao Facility:[facility] Start: 02-07-2024 End: 02-07-2024 ambulatory Lauren Gelyi Facility:[facility] Start: 02-06-2024 End: 02-12-2024 ambulatory Bianca Gudla Facility:[facility] Start: 11-24-2023 End: 11-24-2023 Emergency department patient visit Dr. Chilango Laughlin Work Phone: [facility] Work Phone: Start: 11-21-[address] Brenda Laughlin [facility] Work Phone: Start: 11-07-2023 End: 11-12-[address] Chilango Laughlin Work Phone: [facility] Work Phone: Start: 11-07-2023 End: 11-12-[address] Chilango Lauhglin [facility] Work Phone: Start: 10-11-2023 End: 10-11-[address] Chilango Laughlin Work Phone: [facility] Work Phone: Start: 10-11-2023 End: 10-11-[address] Chilango Laughlin Work Phone: [facility] Work Phone: Start: 10-10-2023 End: 10-13-[address] Chilango Laughlin Work Phone: [facility] Work Phone: Start: 10-10-2023 End: 10-13-[address] Chilango Laughlin [facility] Work Phone: Start: 10-04-2023 End: 10-05-2023 ambulatory MAULIK العلي Facility:[facility] Start: 10-04-2023 End: 10-04-2023 Patient encounter procedure MAULIK العلي DO [facility] Start: 09-26-2023 Non-patient / Non-visit Dr. Anais Laughlin Work Phone: [facility] Work Phone: Start: 09-23-2023 End: 09-24-2023 ambulatory MAULIK العلي Facility:[facility] Start: 09-20-2023 End: 09-20-2023 ambulatory Chair 3 [facility] [place] Work Phone: Hematology/Oncology Comment on above: Other osteoporosis w ithout current pathological fracture (Primary Dx) Start: 09-19-2023 Non-patient / Non-visit Dr. Anais Laughlin Work Phone: [facility] Work Phone: Start: 09-10-2023 Telephone encounter Funmilayo colunga MD Work Phone: [facility] General Rheumatology and Arthritis Comment on above: Results Start: 09-05-2023 Non-patient / Non-visit Dr. Anais Laughlin Work Phone: [facility] Work Phone: Start: 09-05-2023 End: 09-12-[address] Chilango Laughlin Work Phone: [facility] Work Phone: Start: 09-05-2023 End: 09-12-[address] Chilango Laughlin Work Phone: [facility] Work Phone: Start: 08-29-2023 Non-patient / Non-visit Dr. Anais Laughlin Work Phone: [facility] Work Phone: Start: 08-22-2023 Non-patient / Non-visit Dr. Anais Laughlin Work Phone: [facility] [facility] Work [facility] Start: 08-15-2023 Non-patient / Non-visit Dr. Anais Laughlin Work Phone: [facility] Work Phone: Start: 08-08-2023 Non-patient / Non-visit Dr. Anais Laughlin Work Phone: [facility] Work Phone: Start: 08-08-2023 End: 08-14-[address] Chilango Laughlin Work Phone: [facility] Work Phone: Start: 08-08-2023 End: 08-14-[address] Chilango Laughlin Work Phone: [facility] Work Phone: Start: 08-01-2023 Non-patient / Non-visit Dr. Anais Laughlin Work Phone: [facility] Work Phone: Start: 07-25-2023 Non-patient / Non-visit Dr. Anais Laughlin Work Phone: [facility] Work Phone: Start: 07-11-2023 Non-patient / Non-visit Dr. Anais Laughlin Work Phone: [facility] Work Phone: Start: 07-11-2023 End: 07-14-[address] Chilango Laughlin Work Phone: [facility] Work Phone: Start: 07-11-2023 End: 07-14-[address] Chilango Laughlin Work Phone: [facility] Work Phone: Start: 06-13-2023 Non-patient / Non-visit Dr. Anais Laughlin Work Phone: [facility] Work Phone: Start: 06-13-2023 End: 06-13-[address] Chilango Laughlin Work Phone: [facility] Work Phone: Start: 06-13-2023 End: 06-13-[address] Chilango Laughlin Work Phone: [facility] Work Phone: Start: 05-30-2023 Non-patient / Non-visit Dr. Anais Laughlin Work Phone: [facility] Work Phone: Start: 05-23-2023 Non-patient / Non-visit Dr. Anais Laughlin Work Phone: [facility] Work Phone: Start: 05-16-2023 Non-patient / Non-visit Dr. Anais Laughlin Work Phone: [facility] Work Phone: Start: 05-02-2023 Non-patient / Non-visit Dr. Bianca Carey [facility] Work Phone: Start: 05-02-2023 End: 05-14-[address] [facility] Start: 05-02-2023 End: 05-14-[address] [facility] Start: 04-25-2023 Non-patient / Non-visit Dr. Bianca Carey [facility] Work Phone: Start: 04-18-2023 Non-patient / Non-visit Dr. Bianca Carey [facility] Work Phone: Start: 04-11-2023 Non-patient / Non-visit Dr. Bianca Carey [facility] Work Phone: Start: 04-11-2023 End: 04-13-[address] [facility] Start: 04-05-2023 End: 04-05-[address] Bianca Palomares [facility] Work Phone: Start: 04-04-2023 Non-patient / Non-visit Dr. Bianca Carey issa [facility] Work Phone: Start: 03-28-2023 Non-patient / Non-visit Dr. Bianca Carey [facility] Work Phone: Start: 03-26-2023 Telephone encounter Funmilayo colunga MD Work Phone: [facility] Arthritis & Rheumatology Comment on above: APPROVED ([facility] ([facility]) APPROVED [id number] 03.26.23 - 03.26.24 for 2 visits [facility] Medicare/Portal) Start: 03-21-2023 Non-patient / Non-visit Dr. Bianca sigala [facility] Work Phone: Start: 03-14-2023 Non-patient / Non-visit Dr. Bianca Carey issa [facility] Work Phone: Start: 03-14-2023 End: 03-14-[address] [facility] Work Phone: Start: 03-13-2023 Telephone encounter Self Hem atology/Oncology Start: 03-13-2023 End: 03-13-2023 ambulatory Chair 7 [facility] Work Phone: Hematology/Oncology Comment on above: Osteoporosis, unspec ified osteoporosis type, unspecified pathological fracture presence (Primary Dx) Start: 03-07-2023 Non-patient / Non-visit Dr. Bianca Carey issa [facility] Work Phone: Start: 03-06-2023 Telephone encounter Funmilayo colunga MD Work Phone: [facility] Rheumatology and Arthritis Comment on above: Orders Start: 03-01-2023 End: 03-01-[address] Bianca Palomares [facility] Work Phone: Start: 02-21-2023 Non-patient / Non-visit Dr. Bianca Carey issa [facility] Work Phone: Start: 02-08-2023 End: 02-08-[address] Chilango Laughlin Work Phone: [facility] Work Phone: Start: 02-07-2023 Non-patient / Non-visit Dr. Anais Laughlin Work Phone: [facility] Work Phone: Start: 02-07-2023 End: 02-11-[address] Chilango Laughlin Work Phone: [facility] Work Phone: Start: 02-07-2023 End: 02-11-[address] Chilango Laughlin [facility] Phone[facility] Work Phone: Start: 01-31-2023 Non-patient / Non-visit Dr. Anais Laughlin Work Phone: [facility] Work Phone: Start: 01-24-2023 Non-patient / Non-visit Dr. Anais Laughlin Work Phone: [facility] Work Phone: Start: 01-18-2023 End: 01-18-[address] Chilango Laughlin Work Phone: [facility] Work Phone: Start: 01-17-2023 Non-patient / Non-visit Dr. Anais Laughlin Work Phone: [facility] Work Phone: Start: 01-16-2023 End: 01-16-[address] Chilango Laughlin Work Phone: [facility] Work Phone: Start: 01-11-2023 Non-patient / Non-visit Dr. Anais Laughlin Work Phone: [facility] Start: 01-11-2023 End: 01-11-[address] Chilango Laughlin Work Phone: [facility] Work Phone: Start: 01-11-2023 End: 01-11-[address] Chilango Laughlin Work Phone[facility] Work Phone: Start: 01-03-2023 Non-patient / Non-visit Dr. Anais Laughlin Work Phone: [facility] Work Phone: Start: 01-02-2023 End: 01-02-[address] Chilango Laughlin Work Phone: [facility] Work Phone: Start: 12-20-2022 Non-patient / Non-visit Dr. Anais Laughlin Work Phone: [facility] Work Phone: Start: 12-18-2022 End: 12-18-[address] Chilango Laughlin Work Phone: [facility] Work Phone: Start: 12-13-2022 Non-patient / Non-visit Dr. Anais Laughlin Work Phone: [facility] Work Phone: Start: 12-06-2022 Non-patient / Non-visit Dr. Anais Laughlin Work Phone: [facility] Start: 12-06-2022 End: 12-12-[address] Chilango Laughlin Work Phone: [facility] Work Phone: Start: 12-06-2022 End: 12-12-[address] Chilango Laughlin [facility] Phone[facility] Start: 11-29-2022 Non-patient / Non-visit Dr. Anais Laughlin Work Phone: [facility] Start: 11-22-2022 Non-patient / Non-visit Dr. Anais Laughlin Work Phone: [facility] Start: 10-17-2022 End: 10-17-2022 Emergency department patient visit DR MAKENNA HYATT MD Facility:B Start: 10-17-2022 End: 10-17-2022 Emergency department patient visit DR MAKENNA HYATT MD [facility] Start: 09-13-2022 End: 09-13-2022 Patient encounter procedure Funmilayo Pope MD Work Phone: [facility] General Rheumatology and Arthritis Comment on above: Low back pain, unspe cified back pain laterality, unspecified chronicity, unspecified whether sciatica present (Primary Dx); Pain in both lower extremities; Osteoporosis, unspecified osteoporosis type, unspecified pathological fracture presence Start: 09-05-2022 End: 09-05-2022 ambulatory Chair 1 [facility] Hematology/Oncology Comment on above: Other osteoporosis w ithout current pathological fracture (Primary Dx) Start: 05-04-2022 End: 05-04-2022 Patient encounter procedure CHAKA WO ID REFERRING [facility] Start: 04-28-2022 End: 04-28-2022 Emergency department patient visit TAVIA NORRIS MD [facility] Start: 03-07-2022 End: 03-07-2022 ambulatory Bed 1 [facility] Work Phone: Hematology/Oncology Comment on above: Other osteoporosis w ithout current pathological fracture (Primary Dx) Start: 01-31-2022 Telephone encounter Berenice gamez PA-C Work Phone: [facility] Arthritis & Rheumatology Comment on above: Medication Authoriza tion (Prolia - NO PA REQ for medicare B ) Start: 01-31-2022 End: 01-31-2022 Patient encounter procedure Berenice Trung Edmond PA-C Work Phone: [facility] Arthritis & Rheumatology Comment on above: Other osteoporosis w ithout current pathological fracture (Primary Dx); Primary osteoarthritis involving multiple joints; Vitamin D deficiency Start: 01-08-2022 End: 01-08-2022 Patient encounter procedure [facility] Start: 12-13-2021 End: 12-13-2021 ambulatory Ronaldo Villarreal MD Work Phone: [facility] Comment on above: Procedure Start: 12-13-2021 End: 12-13-2021 Patient encounter procedure Ronaldo Villarreal MD Work Phone: [facility] Start: 11-30-2021 End: 12-01-2021 Emergency department patient visit LANA ZAPIEN DO [facility] Start: 11-29-2021 End: 11-29-2021 ambulatory Chair 6 [facility] Work Phone: Hematology/Oncology Comment on above: Other osteoporosis w ithout current pathological fracture (Primary Dx) Start: 11-21-2021 End: 11-21-2021 ambulatory Luis Pagan DO Work Phone: [facility] Start: 11-21-2021 End: 11-21-2021 Patient encounter procedure Luis Darlingty DO Work Phone: [facility] Start: 11-09-2021 Telephone encounter Ronaldo Villarreal MD [facility] Comment on above: Patient Update (NEW PHONE NUMBER) Start: 10-17-2021 Telephone encounter Funmilayo colunga MD Work Phone: [facility] Rheumatology and Arthritis Comment on above: Medication Follow-up Start: 01-01-2017 Ambulatory [facility] Procedures Date Procedure Procedure Detail Performing Clinician Start: 01-25-2025 Plain radiography of pelvis Dr. Mariah Atkinson MD Work Phone: Start: 01-25-2025 Plain X-ray of tibia and fibula Dr. Rodger Atkinson MD Work Phone: Start: 01-25-2025 CT of head without contrast Dr. Mariah Atkinson MD Work Phone: Start: 01-21-[address] Mariah Atkinson MD [...] 11-23-2016 Ct upper extremity w/o dye Karthikeyan Rubén Nilay stevenson Work Phone: Start: 06-22-2016 End: [...] 03-15-2025 Influenza vaccination Influenza Vacc ine (#1) [facility] Start: 01-25-2025 End: 01-25-2025 Patient encounter procedure [facility] Comment on above: //// prolia *prolia Start: 01-25-2025 [facility] Start: 01-21-2025 Patient discharge [facility] Start: 09-27-2024 [facility] Start: 09-13-2024 [facility] Start: 07-27-2024 End: 07-27-2024 Patient encounter procedure 07/27/2024 1:30 PM [facility] [address] [place] [address] * prolia [facility] Comment on above: * prolia Start: 07-15-2024 Medicare Advantage Annual Wellness Visit Medicare Advantage Annual Wellness Visit [facility] Start: 03-15-2024 Covid-19 Vaccine ( season) Covid-19 Vaccine () [facility] Start: 03-15-2024 Covid-19 Vaccine ( season) Covid-19 Vaccine ( season) [facility] Start: 03-15-2024 Influenza vaccination Influenza Vacc ine (#1) [facility] Start: 11-24-2023 [facility] Start: 11-24-2023 [facility] Start: 11-24-2023 Brain natriuretic peptide measurement [facility] Start: 07-15-2023 Depression Assessment Depression Ass essment [facility] Start: 03-15-2023 Covid-19 Vaccine ( season) Covid-19 Vaccine ( season) [facility] Start: 03-15-2023 Influenza vaccination [facility] Start: 01-31-2023 BP CONTROLLED (<130/80) BP CONTROLLE D (<130/80) [facility] Start: 07-15-2022 DEPRESSION ASSESSMENT DEPRESSION ASS ESSMENT [facility] Start: 05-31-2022 BP CONTROLLED (<130/80) BP CONTROLLE D (<130/80) [facility] Start: 05-11-2022 Adult depression screening assessment DEPRESSION SCREENING [facility] Start: 03-15-2022 Influenza vaccination [facility] Start: 02-28-2022 Hepatitis B screening URINE ALBUMIN:CREATININE RATIO [facility] Start: 01-31-2022 End: 04-02-2022 25-hydroxyvitamin D3 [Mass/volume] in Serum or Plasma VITAMIN D 25 HYDROXY Lab Routine Vitamin D deficiency Expected: 01/31/2022, Expires: 04/02/2022 [facility] Work Phone: Comment on above: Expected: 01/31/2022 , Expires: 04/02/2022 Start: 2021 RSV Vaccine (1 - 1-d ose 60+ series) RSV Vaccine (1 - 1-dose 60+ series) [facility] Start: 2021 RSV Vaccine (1 - Ris k 60-74 years 1-dose series) RSV Vaccine (1 - Risk 60-74 years 1-dose series) [facility] Start: 01-14-2021 COVID-19 VACCINE (3 - Booster for Pfizer series) COVID-19 VACCINE (3 - Booster for Pfizer series) [facility] Start: 10-12-2020 COVID-19 VACCINE (3 - Booster for Pfizer series) COVID-19 VACCINE (3 - Booster for Pfizer series) [facility] Start: 10-12-2020 COVID-19 VACCINE (3 - Pfizer series) COVID-19 VACCINE (3 - Pfizer series) [facility] Start: 12-22-2017 Colonoscopy COLONOSCOPY [facility] Start: 12-22-2017 COLORECTAL CANCER SCREENING COLORECTAL CANCER SCREENING [facility] Start: 12-22-2017 Screening for malign ant neoplasm of colon [facility] Start: 02-28-2017 End: 02-28-2017 Appointment Appointment [facility] Work Phone: Start: 01-18-2017 End: 01-18-2017 Appointment Appointment [facility] Work Phone: Start: 12-19-2016 End: 12-19-2016 Physical Therapy General Physical Therapy General Rehab [facility], [address] [place] [address], [id number] [facility] Work Phone: Start: 12-12-2016 End: 12-12-2016 Appointment Appointment [facility] Work Phone: Start: 11-27-2016 End: 11-27-2016 Appointment Appointment [facility] Work Phone: Start: 11-14-2016 End: 11-14-2016 Appointment Appointment [facility] Work Phone: Start: 09-05-2016 End: 09-05-2016 Physical Therapy General Physical Therapy [facility] Re[facility], [address] [place] [address], [facility] Work Phone: Start: 08-01-2016 End: 08-01-2016 Physical Therapy General Physical Therapy [facility], [address] [place] [address], [id number] [facility] Work Phone: Start: 07-27-2016 End: 11-23-2016 Ct upper extremity w/o dye CT Upper Extremity [facility] Work Phone: Start: 05-16-2016 End: 06-27-2016 Physical Therapy General Physical Therapy [facility], [address] [place] [address], [facility] Work Phone: Start: 05-03-2016 End: 11-23-2016 X-ray exam of collar bone X-Ray, Clavicle [facility] Work Phone: Start: 03-23-2016 End: 11-23-2016 X-ray exam of collar bone X-Ray, Clavicle [facility] Work Phone: Start: 08-12-2015 Hepatitis B surface antibody level LDL CHOLESTEROL [facility] Start: 07-03-2015 Glaucoma screening Dilated Retinal E xam [facility] Start: 07-03-2015 Hepatitis C antibody , confirmatory test DILATED RETINAL EXAM [facility] Start: 11-16-2014 3 comp foot exam completed DIABETIC FOOT EXAM [facility] Start: 11-16-2014 Diabetic foot examination Diabetic Foot Exam [facility] Start: 11-10-2014 Hemoglobin A1c measurement HbA1C [facility] Start: 11-10-2014 Hemoglobin A1c/Hemoglobin.total in Blood HBA1C [facility] Start: 11-09-2014 Hepatitis B screening Urine Albumin:Creatinine Ratio [facility] Start: 04-21-2014 Mammography [facility] Start: 04-21-2014 Screening for malign ant neoplasm of breast Mammogram Screening [facility] Start: 10-07-2011 SHINGRIX VACCINE (1 of 2) SHINGRIX VACCINE (1 of 2) [facility] Start: 04-21-2008 PNEUMOCOCCAL (2 - PCV) PNEUMOCOCCAL (2 - PCV) [facility] Start: 04-21-2008 Pneumococcal vaccination [facility] Start: 04-21-2008 Pneumococcal Vaccine : 50+ (2 of 2 - PCV) Pneumococcal Vaccine: 50+ (2 of 2 - PCV) [facility] Start: 2006 COLOGUARD (FIT-DNA) COLOGUARD (FIT-D NA) [facility] Start: [address] COLONOGRAPHY [facility] Start: 2006 FECAL OCCULT BLOOD FECAL OCCULT BLOO D [facility] Start: 2006 Screening for malign ant neoplasm of colon [facility] Start: 2006 SIGMOIDOSCOPY SIGMOIDOSCOPY [facility] Start: 12-14-2004 Urine microalbumin profile [facility] Start: 10-07-1979 ANNUAL PCP TEAM NEGATIVE STRIPPER JIM DISEASE VISIT ANNUAL PCP TEAM CHRONIC DISEASE VISIT [facility] Start: 10-07-1979 Anxiety Screening Anxiety Screening [facility] Start: 10-07-1979 BP CONTROLLED (<130/80) BP CONTROLLE D (<130/80) [facility] Start: 10-07-1979 Depression Screening Depression Scre ening [facility] Start: 10-07-1979 HIV SCREENING HIV SCREENING [facility] Start: 10-07-1979 HIV screening HIV Screening [facility] End: 09-13-2023 25-hydroxyvitamin D3 [Mass/volume] in Serum or Plasma VITAMIN D 25 HYDROXY Lab Routine Osteoporosis, unspecified osteoporosis type, unspecified pathological fracture presence 2 Occurrences starting 09/13/2022 until 09/13/2023 [facility] Work Phone: Comment on above: 2 Occurrences starti ng 09/13/2022 until 09/13/2023 End: 09-13-2023 Comprehensive metabolic 2000 panel - Serum or Plasma COMP METABOLIC PANEL Lab Routine Osteoporosis, unspecified osteoporosis type, unspecified pathological fracture presence 2 Occurrences starting 09/13/2022 until 09/13/2023 [facility] Work Phone: Comment on above: 2 Occurrences starti ng 09/13/2022 until 09/13/2023 Injection single/salvage inspector trigger point 3/> muscles TRIGGER POINT INJECTION MULTI 3+ MUSCLE GRP Procedures Routine Myofascial pain Ordered: 12/13/2021 [facility] Work Phone: Comment on above: Ordered: 12/13/2021 End: 09-13-2023 Parathyrin.intact [Mass/volume] in Serum or Plasma PTH INTACT BLD Lab Routine Osteoporosis, unspecified osteoporosis type, unspecified pathological fracture presence 2 Occurrences starting 09/13/2022 until 09/13/2023 [facility] Work Phone: Comment on above: 2 Occurrences starti ng 09/13/2022 until 09/13/2023 Patient Education [facility] Work Phone: Patient referral [facility] Work Phone: [facility] Immunizations Immunization Date Immunization Notes Care Provider Alphonse palmer 03-12-2017 influenza virus vacc ine, unspecified formulation Funmilayo Pope MD Work Phone: [facility] 04-22-2014 influenza, seasonal, injectable Funmilayo Pope MD Work Phone: [facility] 04-13-2013 influenza virus vacc ine, unspecified formulation Funmilayo Pope MD Work Phone: [facility] Work Phone: 05-13-2012 influenza virus vacc ine, unspecified formulation Funmilayo Pope MD Work Phone: [facility] 05-09-2010 influenza virus vacc ine, unspecified formulation Funmilayo Pope MD Work Phone: [facility] Work Phone: 05-15-2007 influenza virus vacc ine, unspecified formulation Funmilayo Pope MD Work Phone: [facility] Work Phone: 04-21-2007 pneumococcal polysaccharide vaccine, 23 valent Funmilayo Pope MD Work Phone: [facility] Work Phone: 05-10-2006 influenza virus vacc ine, unspecified formulation Funmilayo Pope MD Work Phone: [facility] Work Phone: 12-13-2004 tetanus and diphther ia toxoids, adsorbed, preservative free, for adult use (2 Lf of tetanus toxoid and 2 Lf of diphtheria toxoid) Funmilayo Pope MD Work Phone: [facility] Work Phone: Payers Date Payer Category Payer Unknown [id number] 2024 Self-pay [id number] 2023 Unknown [id number] 2022 Medicare (Managed Care) [facility] MEDI CARE ADVANTAGE PPO [id number] 2022 Unknown [id number] 2015 Medicaid [facility] AID [facility] MEDICAID [id number] 2015-Present [phone] [address] [place] [address] Medicaid [id number] 2015 Medicaid [id number] 2015 Unknown [id number] 2003 Medicare MEDICARE MEDICAR E A AND B [id number] 2003-Present [phone] [address] [address] [place] [address] Medicare [id number] 2003 Medicare [id number] 1961 Unknown [id number] 2.16840.1.424924.3.579.2. 627 1961 Unknown [id number] 2.16840.1.771325.3.579.2. 627 1961 Unknown [id number] 2.16.840.1.380501.3.579.2. 627 1961 Unknown [id number] 2.16.840.1.372409.3.579.2. 627 1961 Unknown [id number] 2.16.840.1.333704.3.579.2. 627 Medicare [id number] Unknown [id number] 2.16.840.1.039060.3.579.2. 462 Unknown [id number] 2.16.840.1.828802.3.579.2. 462 Unknown [id number] 2.16.840.1.741856.3.579.2. 462 Unknown [id number] 2.16.840.1.257754.3.579.2. 462 Unknown [id number] 2.16.840.1.878909.3.579.2. 462 Unknown [id number] 2.16840.1.587206.3.579.2. 462 Unknown [id number] 2.16.840.1.320732.3.579.2. 462 Unknown [id number] 2.16.840.1.261145.3.579.2. 462 Unknown [id number] 2.16840.1.394212.3.579.2. 462 Unknown [id number] 2.16840.1.370027.3.579.2. 462 Unknown [id number] 2.16840.1.709102.3.579.2. 462 Unknown [id number] 2.16840.1.535155.3.579.2. 462 Social History Date Type Detail Facility Start: 09-12-1994 End: 09-27-2024 Tobacco smoking status [facility] Smokes tobacco daily [facility] Start: 09-12-1994 End: 09-12-2013 History of tobacco use Cigarette Smoker [facility] Start: 02-28-2021 End: 03-13-2023 Cigarettes smoked current (pack per day) - Reported 0.5 [facility] Start: 02-28-2021 Tobacco use and exposure Smokeless tobacco non-user [facility] Start: 09-13-2021 End: 02-28-2022 Alcohol intake Current non-drinker of alcohol (finding) [facility] Start: 02-28-2021 Tobacco Comment ten cig daily currently, off and on for 19 yrs [facility] Start: 1960 Sex Assigned At Not on file [facility] Start: 11-11-2021 End: 03-07-2022 Exposure to SARS-CoV-2 (event) Not sure [facility] Start: 01-17-2019 Tobacco smoking status Heavy t obacco smoker (finding) [facility] Start: 1960 Sex Assigned At Female A [facility] Start: 07-29-2021 End: 11-24-2023 Tobacco smoking status NHIS Unknown if ever smoked [facility] Start: 03-08-2019 None [facility] Start: 12-01-2020 Alone [facility] Start: 03-08-2019 Cigarettes [facility] Start: 02-28-2022 End: 03-13-2023 Tobacco use panel [facility] Adult Depression Screening Assessment 5 [facility] Sexual Orientation [facility] Start: 01-07-2019 End: 09-27-2024 Sex Female (finding) [facility] Start: 01-21-2025 End: 01-24-2025 Tobacco smoking status NHIS Ex-smoker (finding) [facility] NEGATED: Highlighted row Not [facility] Medical Equipment Procedure Code Equipment Code Equipment Origin al Text Equipment Identifier Dates Replacement of battery of baclofen pump SYNCHROMED PAIN PUMP FDA Start: 02-07-2024 Replacement of battery of baclofen pump SYNCHROMED PAIN PUMP FDA Start: 02-07-2024 Replacement of battery of baclofen pump SYNCHROMED PAIN PUMP FDA Start: 02-07-2024 Test Blood sugar 3x daily. 250.02, insulin dep [id number] Start: 11-17-2009 Comment on above: Test Blood [...] Result Facility 04-28-2022 Functional Status Moderate assistance [facility] 12-01-2021 Functional Status [facility] 09-22-2014 Are you deaf, or do you have serious difficulty hearing No 09/22/2014 9:26 AM EDT Zahra Thurman LPN No [facility] 09-22-2014 Are you blind, or do you have serious difficulty seeing, even when wearing glasses No 09/22/2014 9:26 AM Zahra Espinosa LPN No [facility] 09-22-2014 Do you have serious difficulty walking or climbing stairs No 09/22/2014 9:26 AM EDT Zahra Thurman LPN No [facility] 09-22-2014 Do you have difficul ty dressing or bathing No 09/22/2014 9:26 AM Zahra Espinosa LPN No [facility] 09-22-2014 Because of a physica l, mental, or emotional condition, do you have difficulty doing errands alone such as visiting a physician's office or shopping Yes 09/22/2014 9:26 AM EDZahra Castellano LPN Yes [facility] Mental Status Date Assessment Result Facility 01-21-2025 Cognitive function Voice/Name [facility] Work Phone: 11-24-2023 Cognitive function Level Of Cons ciousness Awake;Alert;Appropriate;Fol lows Commands [facility] Work Phone: 10-17-2022 Mental Status Orientation Oriented x 4 [facility] 10-17-2022 Mental Status [facility] 12-01-2021 Mental Status [facility] 09-22-2014 Because of a physica l, mental, or emotional condition, do you have serious difficulty concentrating, remembering, or making decisions Yes 09/22/2014 9:26 AM EDT Zahra Thurman LPN Yes [facility] Clinical Notes 02-04-2008 to 01-25-2025 Telephone Encounter - Funmilayo Pope MD - 01/20/2025 9:57 AM EDTTelephone Encounter - Funmilayo Pope MD - 01/20/2025 9:57 AM EDT Note Date & Type Note Facility 01-25-2025 Radiology Diagnostic study note [facility] Imaging Services [address] [place], [place] [id number] Tibia & Fibula 2 Views MR#: [id number] Acct: [id number] Name: MAGNOLIAJULIANA Rep #: [id number] : 1960 F 64 From: Anjelica Elizabeth MD PCP: Mariah Atkinson MD Status: PRE ER Study:Tibia & Fibula 2 Views Date of Exam: 01/25/25 Exam# [id number] Ordering Dr: Jocelyne Orozco DO EXAM: Right leg series CLINICAL HISTORY: Trauma COMPARISON: No TECHNIQUE: Frontal and lateral views FINDINGS: Acute, obliquely vertical fracture, proximal tibial meta diaphyseal junction, nondisplaced. Acute fibular neck fracture, nondisplaced. Soft tissue swelling, with small air component, anterior, proximal aspect of thelower leg. Old distal tibia and distal fibular fractures. No dislocation. RAD/Tibia & Fibula 2 Views IMPRESSION: Acute proximal right lower leg injury. Reading Location: RAD-ELIZABETH-2 CC: Mariah Atkinson MD; Rancho Orozco DO ~ Lacing Cutter: Signed [facility] 01-25-2025 Radiology Diagnostic study note [facility] Imaging Services [address] [place], [place] [id number] Pelvis 1 or 2 Views MR#: [id number] Acct: [id number] Name: JULIANA MERIDA Rep #: [id number] : 1960 F 64 From: Anjelica Elizabeth MD PCP: Mariah Atkinson MD Status: PRE ER Study:Pelvis 1 or 2 Views Date of Exam: 01/25/25 Exam# [id number] Ordering Dr: Jocelyne Orozco DO PROCEDURE: PELVIS 1 OR 2 VIEWS 01/25/2025 REASON FOR EXAM: FALL TECHNIQUE: PELVIS 1 OR 2 VIEWS COMPARISON: No FINDINGS: Lower lumbar spine degeneration. Remote left femur injury status post orthopedic repair. Intact pelvic ring. RAD/Pelvis 1 or 2 Views IMPRESSION: Intact pelvic ring. Reading Location: [place] [address] CC: Mariah Atkinson MD; Rancho Orozco DO ~ Lacing Cutter: Signed [facility] 01-25-2025 Radiology Diagnostic study note [facility] Imaging Services [address] [place], [place] [address] Brain/Head without Contrast MR#: [id number] Acct: [id number] Name: JULIANA MERIDA Rep #: [id number] : 1960 F 64 From: Anjelica Elizabeth MD PCP: Mariah Atkinson MD Status: PRE ER Study:Brain/Head without Contrast Date of Exa m: 01/25/25 Exam# [id number] Ordering Dr: Jocelyne Orozco DO PROCEDURE: BRAIN/HEAD WITHOUT CONTRAST 01/25/2025 REASON FOR EXAM: FALL TECHNIQUE: BRAIN/HEAD WITHOUT CONTRAST Coronal and Sagittal reconstruction series were provided. One or more dose reduction techniques were used (e.g., Automated exposure control, adjustment of the mA and/or kV according to patient size, use of iterative reconstruction technique. 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 Arterial calcifications. No acute abnormal brain densities. No intracranial hemorrhage. No hydrocephalus or midline shift. No acute scalp or skull pathology. Bilateral lens extraction. Minimal sinus opacification. CT/Brain/Head without Contrast IMPRESSION: No acute intracranial findings. Reading Location: [place] [address] CC: Mariah Atkinson MD; Rancho Orozco DO ~ Lacing Cutter: Signed [facility] 01-21-2025 Consult note [facility] 01-21-2025 Procedure note [facility] 01-21-2025 Procedure note [facility] 01-21-2025 Consult note [facility] 01-21-2025 History and physi jeromy note [facility] 01-21-2025 Note [facility] Medical Records Department [address] [place] [address] History Physical Exam 01/21/25 0836 MR#: [id number] Acct: [id number] Name: JULIANA MERIDA Rep #: [id number] : 1960 64 From: Fer Simmons DO PCP: Mariah Atkinson MD Status:REG [facility] Location: [place] [address] HPI - General General Date of Admission: 01/21/25 Date of Service: 01/21/25 HPI Narrative JULIANA MERIDA, is a 64 F who presentsWANDMario MERIDA, is a 64 F who presents to the office today for establishment with [facility] for concerns of abdominal epigastric pain, heartburn, and constipation. She resides at [facility] due to history of stroke affecting mobility, [...] emesis, abdominal cramping, diarrhea, hematochezia, and melena. [facility] Medical History History of pressure injury of skin Gastric reflux History of pain when walking Leg cramps Lives in assisted Hx of fracture of hip Wears glasses [...] 4 mg PO (more content not included)... [facility] 01-21-2025 Consult note [facility] 01-20-2025 Telephone encounter Note ----- Message from Haylee Montana RN sent at 01/18/2025 9:13 AM EDT ----- Please enter and sign therapy plan for Prolia for Saturday01/25/25. Thanks Haylee [facility] Work Phone: 01-20-2025 Miscellaneous Notes ----- Message from Haylee Montana RN sent at 01/18/2025 9:13 AM EDT ----- Please enter and sign therapy plan for Prolia for Saturday01/25/25. Thanks Haylee documented in this encounter [facility] 11-20-2024 Evaluation note Diagnosis Onset Date Resolution Constipation acute November 20 2:17pm Epigastric abdominal pain acute November 20, 2024 2: 17pm Esophageal reflux chronic November 2:17pm Constipation acute January 21, 025 7:19am Epigastric abdominal pain acute January 21, 2025 7:19am [facility] Work Phone: 1(289) 806-706503-25-2025 Consult note Author Yosef Camp [facility] Note Date/Time January 21, 2025 9:13 am [facility] Medical Records Department [address] [place] [address] Anesthesia Postop Eval I 01/21/25911 MR#: [id number] Acct: [id number] Name: JULIANA MERIDA Rep #:[id number] : 1960 64 From: Yosef Camp PCP: Mariah Atkinson MD Status:REG SDC Y Race: C Location: [place] [address] Anesthesia: Postop Eval I Current Vital Signs [...] Yosef Nolasco Signature: Date CC: ~ Signed [facility] Work Phone: 1(145) 766-990103-16-2025 Radiology Diagnostic study note [facility] Imaging Services [address] [place] [address] Abdomen/Pelvis without Cont MR#: [id number] Acct: [id number] Name: JULIANA MERIDA Rep #: [id number] : 1960 F 63 From: Kimo Loaiza MD PCP: Mariah Atkinson MD Status: REG ER Study:Abdomen/Pelvis without Cont Date of Exa m: 09/27/24 Exam# [id number] Ordering Dr: Graham Cochran DO PROCEDURE: ABDOMEN/PELVIS [...] abdominal and pelvic viscera. There is now dlxn-fbotgii-npzj-right mild basilar patchy ill-defined ground- glass opacities [...] dilation or free air. Status post appendectomy. [place] artifact from spinal stimulator device. Aortoiliac atherosclerotic calcification. No abdominal aortic aneurysm. The bladder appears within limits. No free fluid seen. Status post hysterectomy. The ovaries appearwithin limits on noncontrast imaging. [place] artifact from left femoral gamma nail. Small fat containing left inguinalhernia without stranding again noted. CT/Abdomen/Pelvis without Cont IMPRESSION: There is now tgik-ywiqxiq-tpup-right mild basilar patchy ill-defined ground- glass opacities [...] the liver. Status post cholecystectomy. Reading Location: [id number] CC: Mariah Atkinson MD; Dr. Gregorio Cochran, DO ~ Lacing Cutter: Signed [facility]01-02-2025 Telephone encounter Note* Telephone Encounter - Sandra Dunn - 07/16/2024 9:43 AM EST Marlene Lagunas Approved [id number] [facility] Medicare/Portal 07.15.24-07.15.25 2 visits Sandra Corado Manager Urology [facility]01-02-2025 Miscellaneous Notes* Telephone Encounter - Sandra Dunn - 07/16/2024 9:43 AM EST Marlene Lagunas Approved [id number] [facility] Medicare/Portal 07.15.24-07.15.25 2 visits Sandra Corado Manager Urology [facility] Telephone encounter Note * Telephone Encounter - [...] know patient was a no show today!! [facility]09-09-2024 Miscellaneous Notes* Telephone Encounter - Valeria Sevilla [...] a no show today!! documented [facility] Telephone encounter Note * Telephone Encounter - Valeria Kapoor MA - 03/23/2024 11:16 AM EDT error [facility]09-09-2024 Miscellaneous Notes* Telephone Encounter - Valeria Sevilla MA - 03/23/2024 11:16 AM EDT error documented in [facility]Hol[facility] Discharge summary Author Dino [facility] November 24, 2023 8:14pm Note Date/Time November 24, 2023 5:05p m [facility] Medical Records Department [address] [place] [address] Emergency Department Summary 11/24/23 MR#: [id number] Acct: [id number] Name: JULIANA MERIDA Rep #:[id number] : 1960 63 From: Dino Pena MD PCP: Bianca Palomares MD Status:REG ER Location: ED HPI History of Present Illness Chief Complaint: Edema Informant: patient Narrative Narrative: 63-year-old patient in a assisted presenting with multiple complaints on herown behalf. [...] no orthopnea no new cough or fevers. [facility] Medical History Anxiety Cerebral [...] mg rectal suppository (Dulcolax (bisacodyl)) 10 mg AZ Q8H PRN 12/18/22 [History Last Taken Unknown] [...] % (Auto) 69.2 Lymph % (Auto) 20.5 [place] % (Auto) 8.4 Eos % (Auto) 0.6 [...] Clarity Clear Urine pH 7.0 Ur Specific [place] 1.010 Urine Protein Negative Urine Glucose (UA) [...] right renal lesion. ACR White Paper guidelines (Herts, et al. JACR 2018; 15(2):264-273) recommend MRI [...] [Dulcolax (bisacodyl)] 10 mg suppository 10 mg AZ Q8H PRN epinephrine [EpiPen] 0.3 mg/0.3 mL [...] 2 mg tablet 2 mg PO Q12H Tomena SoloStar U-300 Insulin 300 unit/mL (1.5 mL) [...] Dr. Newman different dosing desired. Disposition Disposition: Long-Term Facility What to do if you have Problems For any increased pain, shortness of breath, bleeding, nausea or vomiting, chestpain, or any unexpected problems, contact your Primary Care Provider. Call [facility] ([phone]) or report to the closest Emergency Room. Call 911 if necessary. 11/24/232013 <Electronically signed by Dino Pena MD> Cosigner Signature (if applicable): CC: Bianca Palomares MD ~ Signed [facility] Work Phone: 1(403) 437-703404-25-2024 Progress note Author [facility] November 07, 2023 12:35pm Note Date/Time November 07, 2023 12: 35pm [facility] [address] [place] [id number] Progress Note - Wound Care 11/07/23 1224 MR#: [id number] Acct: [id number] Name: JULIANA MERIDA YANELI Rep #:[id number] : 1960 63 From: Karthikeyan tavares DPM PCP: Bianca [facility]res MD [facility] Location: History of Present Illness Date of [...] Start: 10/17/23 09:30 Freq: Status: Active Protocol: MolecuLightBRIANDA Activity Type Activity Date Activity User E-sign Co-sign Detail Recorded Client Recorded Date Recorded By Document 10/17/23 09:32 MT Desktop 10/17/23 09:40 MT Document 10/24/23 09:47 KW Desktop 10/24/23 09:55 KW Document 10/31/23 09:37 DL Desktop 10/31/23 09:47 DL Document 11/07/23 09:41 RB Desktop 11/07/23 09:43 RB 10/17/23 10/24/23 10/31/23 09:32 09:47 09:37 - Today's Visit Information Type of service Follow-up Visit Follow-up Visit Follow-up Visit (Physician/SOAP MIXER (Physician/SOAP MIXER (Physician/SOAP MIXER ) ) ) Arrival Mode Wheelchair Wheelchair [...] Visit Information Type of service Follow-up Visit (Physician/SOAP MIXER ) Arrival Mode Wheelchair Transfer Assistance None [...] Under -Granulation Amt Medium (34-66%) -Granulation Quality [place] -Slough/Fibrin Yes -Necrosis Amt Large (67-100%) -Necrotic [...] Recorded Date Recorded By Document 10/17/23 10:13 [employer] 10/17/23 10:37 [employer] Document 10/24/23 10:01 [employer] 10/24/23 10:15 [employer] Document 10/31/23 09:59 [employer] Desktop 10/31/23 10:10 [employer] Document 11/07/23 10:10 [employer] Desktop 11/07/23 10:27 [employer] 10/17/23 10/24/23 10/31/23 10:13 10:01 09:59 Wound [...] Medication -Comments injected w/ lidocaine per dr perfecto REDMOND - Nurse 3 - General Ulcer D/C NN Start: 10/17/23 09:30 Freq: Status: Active Protocol: Activity Type Activity Date Activity User E-sign Co-sign Detail Recorded Client Recorded Date Recorded By Document 10/17/23 10:51 Desktop 10/17/23 10:52 GM Document 10/24/23 10:22 [facility] Desktop 10/24/23 10:23 BMF Document 10/31/23 11:54 DL [id number] 10/31/23 11:56 DL Document 11/07/23 10:31 KW [...] Summary of Care Provided Yes Facility Type [facility] Care Licensed Final Expense Agents Care Facility Facility Orders Sent Yes 11/07/23 [...] disease, next appointment 11/20/23. Pain: May take izcq-jev-pjtjsok Tylenol for discomfort Host factors: DM type II with peripheral polyneuropathy, MRSA positive cultures,edema, chronic tobacco abuse. I answered all the patient's questions. To return to the wound healing center in 1 week or call sooner if the patient has any questions or concerns. 11/07/23 1231 <Electronically signed by Karthikeyan Grove DPM> Cosigner Signature (if applicable): CC: ~ Signed [facility] Work Phone: 1(534) 931-902104-18-2024 Progress note Author Karthikeyan Grove [facility] October 31, 2023 12:37pm Note Date/Time October 31, 2023 12: 26pm [facility] [address] [place] [address] Progress Note - Wound Care 10/31/23 1222 MR#: [id number] Acct: [id number] Name: JULIANA MERIDA YANELI Rep #:[id number] : 1960 63 From: Karthikeyan tavares DPM [...] DL 10/17/23 10/24/23 10/31/23 09:32 09:47 09:37 - Today's Visit Information Type of service Follow-up Visit Follow-up Visit Follow-up Visit (Physician/SOAP MIXER (Physician/SOAP MIXER (Physician/SOAP MIXER ) ) ) Arrival Mode Wheelchair Wheelchair [...] Recorded Date Recorded By Document 10/17/23 10:13 [employer] 10/17/23 10:37 [employer] Document 10/24/23 10:01 [facility] 10/24/23 10:15 [employer] Document 10/31/23 09:59 [employer] 10/31/23 10:10 [employer] 10/17/23 10/24/23 10/31/23 10:13 10:01 09:59 Wound [...] 10:51 Desktop 10/17/23 10:52 Document 10/24/23 10:22 [facility] Desktop 10/24/23 10:23 [facility] Document 10/31/23 11:54 DL [id number] 10/31/23 11:56 DL 10/17/23 10/24/23 10/31/23 10:51 [...] Right -Compression Wrap Daljit Wrap Daljit Wrap Dlajit Wrap Treatment Response Procedure Procedure Tolerated Well Tolerated Well Pain Scale: 0-10 Numeric Is Patient Pain Free? Yes Yes Yes Teaching: Wound Center wound status -Person Taught Patient -Teaching Method Discussion -Response to teaching Verbalize understanding WC - Visit Discharge Discharge Condition Stable Stable Stable Ambulatory Status Wheelchair Wheelchair Wheelchair Transportation Private Auto ecf ECF Clinical Summary of Care Provided Yes Facility Type Licensed Final Expense Agents Care [facility] Care Facility Facility Orders Sent Yes Assessment/Plan [...] disease, next appointment 11/20/23. Pain: May take zckt-lpe-avmtfno Tylenol for discomfort Host factors: DM type II with peripheral polyneuropathy, MRSA positive cultures,edema, chronic tobacco abuse. I answered all the patient's questions. To return to the wound healing center in 1 week or call sooner if the patient has any questions or concerns. 10/31/23 1237 <Electronically signed by Karthikeyan Grove DPM> Cosigner Signature (if applicable): CC: ~ Signed [facility] Work Phone: 1(914) 153-240604-11-2024 Progress note Author Karthikeyan Grove [facility] October 24, 2023 11:03am Note Date/Time October 24, 2023 10: 01am [facility] [address] [place] [address] Progress Note - Wound Care 10/24/23 1000 MR#: [id number] Acct: [id number] Name: JULIANA MERIDA YANELI Rep #:[id number] : 1960 63 From: Karthikeyan tavares DPM [...] 10/24/23 09:55 KW 10/17/23 10/24/23 09:32 09:47 WC - Today's Visit Information Type of service Follow-up Visit Follow-up Visit (Physician/SOAP MIXER (Physician/SOAP MIXER ) ) Arrival Mode Wheelchair Wheelchair Patient [...] -Pain Behavior Grasping Site -Alleviating Factors/Interventions Medication RUY - Nurse 1 - General Ulcer Measurement Start: 10/17/23 09:30 Freq: Status: Active Protocol: Activity Type Activity Date Activity User E-sign Co-sign Detail Recorded Client Recorded Date Recorded By Document 10/17/23 09:32 AL Desktop 10/17/23 09:40 AL Document 10/24/23 09:47 KW Desktop 10/24/23 09:55 [...] Recorded Date Recorded By Document 10/17/23 10:13 [facility] [employer] 10/17/23 10:37 [facility] 10/17/23 10:13 Wound Center Nurse 2 -Time [...] By Document 10/17/23 10:51 Desktop 10/17/23 10:52 10/17/23 10:51 Wound Care Center Nurse 3 [...] referral to infectious disease. Pain: May take rbuw-ihx-txqvyby Tylenol for discomfort Host factors: DM type II with peripheral polyneuropathy, MRSA positive cultures,edema, chronic tobacco abuse. I answered all the patient's questions. To return to the wound healing center in 1 week or call sooner if the patient has any questions or concerns. 10/24/23 1103 <Electronically signed by Karthikeyan Grove DPM> Cosigner Signature (if applicable): CC: ~ Signed [facility] Work Phone: 1(888) 461-640804-04-2024 Progress note Author Karthikeyan Grove [facility] October 17, 2023 7:55pm Note Date/Time October 17, 2023 10:4 2am [facility] [address] [place] [address] Progress Note - Wound Care 10/17/23 1038 MR#: [id number] Acct: [id number] Name: JULIANA MERIDA YANELI Rep #:[id number] : 1960 63 From: Karthikeyan tavares DPM PCP: Bianca aPlomares MD Status:REG RCR Location: History of Present [...] 10/17/23 09:32 MT Desktop 10/17/23 09:40 MT 10/17/23 09:32 - Today's Visit Information Type of service Follow-up Visit (Physician/SOAP MIXER ) Arrival Mode Wheelchair Patient Identification Verified [...] Recorded Date Recorded By Document 10/17/23 09:32 AL Desktop 10/17/23 09:40 AL 10/17/23 09:32 Wound Center Nurse 1 #1 [...] Cleansing No -Anesthetic Used 5% Lidocaine Gel - Nurse 2 - General Ulcer CM Notes Start: 10/17/23 09:30 Freq: Status: Active Protocol: Activity Type Activity Date Activity User E-sign Co-sign Detail Recorded Client Recorded Date Recorded By Document 10/17/23 10:13 [facility] Desktop 10/17/23 10:37 [facility] 10/17/23 10:13 Wound Center Nurse 2 -Time [...] referral to infectious disease. Pain: May take gvwr-wph-yofpwoc Tylenol for discomfort Host factors: DM type II with peripheral polyneuropathy, MRSA positive cultures,edema, chronic tobacco abuse. I answered all the patient's questions. To return to the wound healing center in 1 week or call sooner if the patient has any questions or concerns. 10/17/231954 <Electronically signed by Karthikeyan Grove DPM> Cosigner Signature (if applicable): CC: ~ Signed [facility] Work Phone: 1(252) 502-228303-28-2024 Progress note Author Karthikeyan Grove [facility] October 10, 2023 6:59pm Note Date/Time October 10, 2023 10: 34am [facility] [address] [place] [address] Progress Note - Wound Care 10/10/23 1031 MR#: [id number] Acct: [id number] Name: JULIANA MERIDA Rep #:[id number] : 1960 63 From: Karthikeyan tavares DPM [...] service Follow-up Visit Follow-up Visit Follow-up Visit (Physician/SOAP MIXER (Physician/SOAP MIXER (Physician/SOAP MIXER ) ) ) Arrival Mode Wheelchair Wheelchair [...] Visit Information Type of service Follow-up Visit (Physician/SOAP MIXER ) Arrival Mode Wheelchair Transfer Assistance None [...] (34-66%) Medium (34-66%) Small (1-33%) -Granulation Quality [place] -Slough/Fibrin Yes Yes -Necrosis Amt Medium (34-66%) [...] Recorded Date Recorded By Document 09/19/23 09:53 [employer] 09/19/23 09:59 Document 09/26/23 10:37 [employer] 09/26/23 10:39 Document 10/03/23 10:18 [facility] Desktop 10/03/23 10:30 [facility] 09/19/23 09/26/23 10/03/23 09:53 10:37 10:18 Wound [...] 09/26/23 11:14 RB Document 10/03/23 11:49 DL [id number] 10/03/23 11:50 DL 09/19/23 09/26/23 10/03/23 10:17 [...] hospital for xray as ordered Facility Type [facility] Care Facility Orders Sent Yes Assessment/Plan Assessment/Plan [...] Recommended referral to infectiousdisease. Pain: May take vmtg-bcn-aonaeuy Tylenol for discomfort Host factors: DM type II with peripheral polyneuropathy, MRSA positive cultures,edema, chronic tobacco abuse. I answered all the patient's questions. To return to the wound healing center in 1 week or call sooner if the patient has any questions or concerns. 10/10/231858 <Electronically signed by Karthikeyan Grove DPM> Cosigner Signature (if applicable): CC: ~ Signed [facility] Work Phone: 1([phone] 966-866903-21-2024 History and physical note Author Karthikeyan Grove [facility] October 03, 2023 1:23pm Note Date/Time October 03, 2023 10: 09am [facility] [address] [place] [address] H&P Exam - Wound Care 10/03/23 1008 MR#: [id number] Acct: [id number] Name: JULIANA MERIDA Rep #:[id number] : 1960 62 From: Karthikeyan tavares DPM PCP: Bianca Palomares MD Status:REG R Location: [...] fever or otherwise feeling of unwell reported. [facility] Medical History Anxiety Cerebral vascular disease [...] mg rectal suppository (Dulcolax (bisacodyl)) 10 mg AZ Q8H PRN 12/18/22 [History Last Taken Unknown] [...] 09:51 09/19/23 09/26/23 10/03/23 09:30 10:12 09:41 WC - Today's Visit Information Type of service Follow-up Visit Follow-up Visit Follow-up Visit (Physician/SOAP MIXER (Physician/SOAP MIXER (Physician/SOAP MIXER ) ) ) Arrival Mode Wheelchair Wheelchair [...] Document 10/03/23 09:41 GM Desktop 10/03/23 09:51 09/19/23 09/26/23 10/03/23 09:30 [...] (34-66%) Medium (34-66%) Small (1-33%) -Granulation Quality [place] -Slough/Fibrin Yes Yes -Necrosis Amt Medium (34-66%) [...] Recorded Date Recorded By Document 09/19/23 10:17 [employer] 09/19/23 10:18 Document 09/26/23 11:13 RB Desktop [...] Recommended referral to infectiousdisease. Pain: May take hsyj-vkj-oxkkjip Tylenol for discomfort Host factors: DM type II with peripheral polyneuropathy, MRSA positive cultures,edema, chronic tobacco abuse. I answered all the patient's questions. To return to the wound healing center in 1 week or call sooner if the patient has any questions or concerns. 10/03/23 1323 <Electronically signed by Karthikeyan Grove DPM> Cosigner Signature (if applicable): CC: ~ Signed [facility] Work Phone: [phone]) 233-909303-14-2024 Progress note Author Chilango Laughlin [facility] September 26, 2023 2:01pm Note Date/Time September 26, 2023 12: 14pm [facility] [address] [place] [address] Progress Note - Wound Care 09/26/23 1209 MR#: [id number] Acct: [id number] Name: JULIANA MERIDA YANELI Rep #:[id number] : 1960 62 From: Chilango joy MD [...] 11:34 09/26/23 11:34 Charges/Coding Procedures Integumentary 111xxx-113xx: 97344 Carla subq tissue 20 sq cm/< Physical [...] Start: 09/19/23 09:30 Freq: Status: Active Protocol: RUY.ALINE Activity Type Activity Date Activity User E-sign Co-sign Detail Recorded Client Recorded Date Recorded By Document 09/19/23 09:30 RB Desktop 09/19/23 09:32 RB Document 09/26/23 10:12 RB Desktop 09/26/23 10:15 RB 09/19/23 09/26/23 09:30 10:12 - Today's Visit Information Type of service Follow-up Visit Follow-up Visit (Physician/SOAP MIXER (Physician/SOAP MIXER ) ) Arrival Mode Wheelchair Wheelchair Transfer [...] Date Recorded By Document 09/19/23 09:30 RB [employer] 09/19/23 09:32 RB Document 09/26/23 10:12 RB [...] Amt Medium (34-66%) Medium (34-66%) -Granulation Quality [place] -Slough/Fibrin Yes Yes -Necrosis Amt Medium (34-66%) [...] 1 week. This note was generated with [employer] software. It may contain incorrectwords, spelling, and punctuation that were not noted in checking the note beforesigning. 09/26/23 1401 <Electronically signed by Chilango Laughlin MD> Cosigner Signature (if applicable): CC: ~ Signed [facility] Work Phone: [phone]) [phone] Progress note Author therese Laughlin [facility] September 19, 2023 10:17am Note Date/Time September 19, 2023 10:1 0am [facility] [address] [place] [address] Progress Note - Wound Care 09/19/23 1005 MR#: [id number] Acct: [id number] Name: JULIANA MERIDA YANELI Rep #:[id number] : 1960 62 From: Chilango joy MD [...] 09:30 09/19/23 09:30 Charges/Coding Procedures Integumentary 111xxx-113xx: 49732 Carla subq tissue 20 sq cm/< Physical [...] RB Desktop 09/19/23 09:32 RB 09/19/23 09:30 - Today's Visit Information Type of service Follow-up Visit (Physician/SOAP MIXER ) Arrival Mode Wheelchair Transfer Assistance None [...] Under -Granulation Amt Medium (34-66%) -Granulation Quality [place] -Slough/Fibrin Yes -Necrosis Amt Medium (34-66%) -Necrotic [...] 09/19/23 09:53 GM Desktop 09/19/23 09:59 GM 09/19/23 09:53 Wound Center Nurse 2 #1 [...] 1 week. This note was generated with [employer] dictation software. It may contain incorrectwords, spelling, and punctuation that were not noted in checking the note beforesigning. 09/19/23 1017 <Electronically signed by Chilango Laughlin MD> Cosigner Signature (if applicable): CC: ~ Signed [facility] Work Phone: [phone] Miscellaneous Notes* Telephone Encounter - Funmilayo Pope MD - 09/17/2023 2:59 PM EST Needs [facility] Progress note Author Chilango Laughlin [facility] September 05, 2023 12:52pm Note Date/Time September 05, 2023 10:04am [facility] [address] [place] [address] Progress Note - Wound Care 09/05/23 0958 MR#: [id number] Acct: [id number] Name: JULIANA MERIDA YANELI Rep #:[id number] : 1960 62 From: Chilango joy MD PCP: Bianca Palomares MD Status:REG RCR Location: History of Present Illness Date of Service: 09/05/23 Chief Complaint: Non healing right ankle ulcer History of Wound: Ms. eMrida is a 62-year-old who was referred to [...] anaerobic bacteria isolated. Charges/Coding Procedures Integumentary 111xxx-113xx: 17621 Carla subq tissue 20 sq cm/< Physical [...] service Follow-up Visit Follow-up Visit Follow-up Visit (Physician/SOAP MIXER (Physician/SOAP MIXER (Physician/SOAP MIXER ) ) ) Arrival Mode Wheelchair Wheelchair [...] Alleviating Factor/ Moderately Intervention effective 09/05/23 09:29 - Today's Visit Information Type of service Follow-up Visit (Physician/SOAP MIXER ) Arrival Mode Wheelchair Transfer Assistance None [...] Small (1-33%) Medium (34-66%) -Granulation Quality Red [place] -Slough/Fibrin Yes Yes -Necrosis Amt Medium (34-66%) [...] Attached -Granulation Amt Medium (34-66%) -Granulation Quality [place] -Slough/Fibrin Yes -Necrosis Amt Medium (34-66%) -Necrotic [...] 08/29/23 09:47 GM Desktop 08/29/23 09:49 GM Document 09/05/23 09:48 GM Desktop 09/05/23 09:52 GM 08/15/23 08/22/23 08/29/23 09:25 09:14 09:47 [...] 1 week. This note was generated with [employer] software. It may contain incorrectwords, spelling, and punctuation that were not noted in checking the note beforesigning. 09/05/23 1252 <Electronically signed by Chilango Laughlin MD> Cosigner Signature (if applicable): CC: ~ Signed [facility] Work Phone: [phone]) 913-134202-16-2024 Progress note Author Chilango Laughlin [facility] August 30, 2023 1:48pm Note Date/Time August 29, 2023 10:09am [facility] [address] [place] [address] Progress Note - Wound Care 08/29/23 1008 MR#: [id number] Acct: [id number] Name: JULIANA MERIDA Rep #:[id number] : 1960 62 From: Chilango joy MD [...] anaerobic bacteria isolated. Charges/Coding Procedures Integumentary 111xxx-113xx: 69338 Carla subq tissue 20 sq cm/< Physical [...] Start: 08/15/23 08:53 Freq: Status: Active Protocol: .ALINE Activity Type Activity Date Activity User E-sign Co-sign Detail Recorded Client Recorded Date Recorded By Document 08/15/23 08:53 F Desktop 08/15/23 08:59 BMF Document 08/22/23 08:51 DL Desktop 08/22/23 08:59 DL Document 08/29/23 09:30 [facility] Desktop 08/29/23 09:34 [facility] 08/15/23 08/22/23 08/29/23 08:53 08:51 09:30 - Today's Visit Information Type of service Follow-up Visit Follow-up Visit Follow-up Visit (Physician/SOAP MIXER (Physician/SOAP MIXER (Physician/SOAP MIXER ) ) ) Arrival Mode Wheelchair Wheelchair [...] Small (1-33%) Medium (34-66%) -Granulation Quality Red [place] -Slough/Fibrin Yes Yes -Necrosis Amt Medium (34-66%) [...] Document 08/22/23 09:14 GM Desktop 08/22/23 09:28 Document 08/29/23 09:47 Desktop 08/29/23 09:49 08/15/23 08/22/23 08/29/23 09:25 09:14 09:47 Wound [...] By Document 08/15/23 09:34 Desktop 08/15/23 09:36 Document 08/22/23 09:28 Desktop 08/22/23 09:29 GM Document 08/29/23 09:54 RB Desktop 08/29/23 09:56 [...] 1 week. This note was generated with [employer] dictation software. It may contain incorrectwords, spelling, and punctuation that were not noted in checking the note beforesigning. 08/30/23 1348 <Electronically signed by Chilango Laughlin MD> Cosigner Signature (if applicable): CC: ~ Signed [facility] Work Phone: [phone]) 342-443302-08-2024 Progress note Author Chilango Laughlin [facility] August 22, 2023 9:39am Note Date/Time August 22, 2023 9 :33am [facility] [address] [place] [address] Progress Note - Wound Care 08/22/2328 MR#: [id number] Acct: [id number] Name: JULIANA MERIDA Rep #:[id number] : 1960 62 From: Chilango joy MD [...] Method Room Air Charges/Coding Procedures Integumentary 111xxx-113xx: 03677 Carla subq tissue 20 sq cm/< Physical [...] Recorded Date Recorded By Document 08/15/23 08:53 [facility] Desktop 08/15/23 08:59 [facility] Document 08/22/23 08:51 DL Desktop 08/22/23 08:59 DL 08/15/23 08/22/23 08:53 08:51 - Today's Visit Information Type of service Follow-up Visit Follow-up Visit (Physician/SOAP MIXER (Physician/SOAP MIXER ) ) Arrival Mode Wheelchair Wheelchair Transfer [...] Medium (34-66%) Small (1-33%) -Granulation Quality Red [place] -Slough/Fibrin Yes -Necrosis Amt Medium (34-66%) Small (1-33%) -Necrotic Tissue Type Adherent Slough Adherent Slough -Structure Exposed N/A -Texture (Lori-wound Skin Appearance) Assessed, Scarring Localized Edema ,Scarring -Moisture (Lroi-wound Skin Appearance) Assessed, Maceration Maceration,Dry/ Scaly -Color [...] 08/22/23 09:14 GM Desktop 08/22/23 09:28 GM 08/15/23 08/22/23 09:25 09:14 Wound Center Nurse [...] 1 week. This note was generated with [employer] software. It may contain incorrectwords, spelling, and punctuation that were not noted in checking the note beforesigning. 08/22/23 0996 <Electronically signed by Chilango Laughlin MD> Cosigner Signature (if applicable): CC: ~ Signed [facility] Work Phone: [phone]) 210-431302-01-2024 Progress note Author Chilango Laughlin [facility] August 15, 2023 9:38am Note Date/Time August 15, 2023 9 :38am [facility] [address] [place] [address] Progress Note - Wound Care 08/15/23 0936 MR#: [id number] Acct: [id number] Name: JULIANA MERIDA Rep #:[id number] : 1960 62 From: Chilango joy MD [...] Method Room Air Charges/Coding Procedures Integumentary 111xxx-113xx: 63078 Carla subq tissue 20 sq cm/< Physical [...] Recorded Date Recorded By Document 08/15/23 08:53 [facility] Desktop 08/15/23 08:59 [facility] 08/15/23 08:53 - Today's Visit Information Type of service Follow-up Visit (Physician/SOAP MIXER ) Arrival Mode Wheelchair Transfer Assistance None [...] Recorded Date Recorded By Document 08/15/23 08:53 [facility] Desktop 08/15/23 08:59 [facility] 08/15/23 08:53 Wound Center Nurse 1 #1 [...] 1 week. This note was generated with [employer] dictation software. It may contain incorrectwords, spelling, and punctuation that were not noted in checking the note beforesigning. 08/15/23937 <Electronically signed by Chilango Laughlin MD> Cosigner Signature (if applicable): CC: ~ Signed [facility] Work Phone: [phone] 294-621401-25-2024 Progress note Author Chilango Laughlin [facility] August 08, 2023 9:32am Note Date/Time August 08, 2023 9 :26am [facility] [address] [place] [address] Progress Note - Wound Care 08/08/23919 MR#: [id number] Acct: [id number] Name: JULIANA MERIDA YANELI Rep #:[id number] : 1960 62 From: Chilango joy MD [...] anaerobic bacteria isolated. Charges/Coding Procedures Integumentary 111xxx-113xx: 96675 Carla subq tissue 20 sq cm/< Physical [...] Document 07/18/23 08:50 BMF Desktop 07/18/23 08:58 BM Document 07/25/23 08:49 BMF Desktop 07/25/23 08:56 BMF Document 08/01/23 08:39 BMF Desktop 08/01/23 08:49 BMF Document 08/08/23 09:02 DL Desktop 08/08/23 09:05 DL 07/18/23 07/25/23 08/01/23 08:50 08:49 08:39 [facility]'s Visit Information Type of service Follow-up Visit Follow-up Visit Follow-up Visit (Physician/SOAP MIXER (Physician/SOAP MIXER (Physician/SOAP MIXER ) ) ) Arrival Mode Wheelchair Wheelchair [...] Pain Free? Yes Yes Yes 08/08/23 09:02 [facility]'s Visit Information Type of service Follow-up Visit (Physician/SOAP MIXER ) Arrival Mode Wheelchair Transfer Assistance None [...] Recorded Date Recorded By Document 07/18/23 08:50 [employer] Desktop 07/18/23 08:58 [employer] Document 07/25/23 08:49 BMF Desktop 07/25/23 08:56 [...] Maceration,Dry/ Maceration,Dry/ Maceration,Dry/ Scaly Scaly Scaly -Color (Loir-wound Skin Appearance) Assessed Assessed, Assessed Erythema -Temperature [...] Thickened -Granulation Amt Small (1-33%) -Granulation Quality Pale,[place] -Slough/Fibrin -Necrosis Amt Small (1-33%) -Necrotic Tissue [...] BMF Edit Result 08/01/23 09:52 BMF (1) [id number] 08/01/23 14:12 GM (1) #1 R Lat [...] GM Document 07/25/23 09:22 Desktop 07/25/23 09:23 GM Document 08/01/23 10:06 [facility] Desktop 08/01/23 10:07 [facility] 07/18/23 07/25/23 08/01/23 09:48 09:22 10:06 Wound [...] of Care Provided Yes Yes Facility Type [facility] Care Facility Assessment/Plan Assessment/Plan (1) Chronic ulcer [...] 1 week. This note was generated with [employer] software. It may contain incorrectwords, spelling, and punctuation that were not noted in checking the note beforesigning. 08/08/23 0932 <Electronically signed by Chilango Laughlin MD> Cosigner Signature (if applicable): CC: ~ Signed [facility] Work Phone: [phone] 462-800201-18-2024 Progress note Author Chilango Laughlin [facility] August 01, 2023 6:49pm Note Date/Time August 01, 2023 1 0:52am [facility] [address] [place] [address] Progress Note - Wound Care 08/01/23 1048 MR#: [id number] Acct: [id number] Name: JULIANA MERIDA Rep #:[id number] : 1960 62 From: Chilango joy MD [...] anaerobic bacteria isolated. Charges/Coding Procedures Integumentary 111xxx-113xx: 69156 Carla subq tissue 20 sq cm/< Physical [...] Recorded Client Recorded Date Recorded By Document 01/04/24 08:50 BMF Desktop 07/18/23 08:58 BMF Document 07/25/23 08:49 BMF Desktop 07/25/23 08:56 BMF Document 08/01/23 08:39 BM Desktop 08/01/23 08:49 BMF 07/18/23 07/25/23 08/01/23 08:50 08:49 08:39 WC - Today's Visit Information Type of service Follow-up Visit Follow-up Visit Follow-up Visit (Physician/SOAP MIXER (Physician/SOAP MIXER (Physician/SOAP MIXER ) ) ) Arrival Mode Wheelchair Wheelchair [...] Recorded Date Recorded By Document 07/18/23 08:50 [facility] Desktop 07/18/23 08:58 [facility] Document 07/25/23 08:49 [facility] Desktop 07/25/23 08:56 [facility] Document 08/01/23 08:39 [facility] Desktop 08/01/23 08:49 BMF 07/18/23 07/25/23 08/01/23 08:50 08:49 08:39 Wound [...] By Document 07/18/23 09:32 Desktop 07/18/23 09:38 GM Document 07/25/23 09:05 Desktop 07/25/23 09:11 Document 08/01/23 09:52 [facility] Desktop 08/01/23 09:57 [facility] 07/18/23 07/25/23 08/01/23 09:32 09:05 09:52 Wound [...] Is Patient Pain Free? Yes Yes Yes RUY - Nurse 3 - General Ulcer D/C NN Start: 07/18/23 08:50 Freq: Status: Active Protocol: Activity Type Activity Date Activity User E-sign Co-sign Detail Recorded Client Recorded Date Recorded By Document 07/18/23 09:48 Desktop 07/18/23 09:50 GM Document 07/25/23 09:22 Desktop 07/25/23 09:23 Document 08/01/23 10:06 [facility] Desktop 08/01/23 10:07 [facility] 07/18/23 07/25/23 08/01/23 09:48 09:22 10:06 Wound [...] of Care Provided Yes Yes Facility Type [facility] Care Facility Assessment/Plan Assessment/Plan (1) Chronic ulcer [...] 1 week. This note was generated with [employer] dictation software. It may contain incorrectwords, spelling, and punctuation that were not noted in checking the note beforesigning. 08/01/23 1849 <Electronically signed by Chilango Laughlin MD> Cosigner Signature (if applicable): CC: ~ Signed [facility] Work Phone: [phone] 940-905901-11-2024 Progress note Author Chilango Laughlin [facility] July 25, 2023 10:31am Note Date/Time July 25, 2023 1 0:31am [facility] [address] [place] [address] Progress Note - Wound Care 07/25/23 1028 MR#: [id number] Acct: [id number] Name: JULIANA MERIDA YANELI Rep #:[id number] : 1960 62 From: Chilango joy MD [...] anaerobic bacteria isolated. Charges/Coding Procedures Integumentary 111xxx-113xx: 04451 Carla subq tissue 20 sq cm/< Physical [...] Recorded Date Recorded By Document 07/18/23 08:50 [facility] Desktop 07/18/23 08:58 BM Document 07/25/23 08:49 [facility] Desktop 07/25/23 08:56 BMF 07/18/23 07/25/23 08:50 08:49 - Today's Visit Information Type of service Follow-up Visit Follow-up Visit (Physician/SOAP MIXER (Physician/SOAP MIXER ) ) Arrival Mode Wheelchair Wheelchair Transfer [...] Recorded Date Recorded By Document 07/18/23 08:50 [facility] Desktop 07/18/23 08:58 [facility] Document 07/25/23 08:49 [facility] Desktop 07/25/23 08:56 [facility] 07/18/23 07/25/23 08:50 08:49 Wound Center Nurse [...] By Document 07/18/23 09:32 Desktop 07/18/23 09:38 GM Document 07/25/23 09:05 Desktop 07/25/23 09:11 07/18/23 [...] Recorded Date Recorded By Document 07/18/23 09:48 GM Desktop 07/18/23 09:50 GM Document 07/25/23 09:22 GM Desktop 07/25/23 09:23 GM 07/18/23 07/25/23 09:48 09:22 Wound Care Center [...] 1 week. This note was generated with [employer] dictation software. It may contain incorrectwords, spelling, and punctuation that were not noted in checking the note beforesigning. 07/25/23 1031 <Electronically signed by Chilango Laughlin MD> Cosigner Signature (if applicable): CC: ~ Signed [facility] Work Phone: [phone] 488-335612-28-2023 Progress note Author therese Laughlin [facility] July 11, 2023 9:25am Note Date/Time July 11, 2023 9:21am [facility] [address] [place] [address] Progress Note - Wound Care 07/11/23 0919 MR#: [id number] Acct: [id number] Name: JULIANA MERIDA YANELI Rep #:[id number] : 1960 62 From: Chilango joy MD [...] Method Room Air Charges/Coding Procedures Integumentary 111xxx-113xx: 08864 Carla subq tissue 20 sq cm/< Physical [...] Type of service Nurse-only Follow-up Visit Visit (Physician/SOAP MIXER ) Arrival Mode Wheelchair Wheelchair Transfer Assistance [...] Recorded Date Recorded By Document 07/04/23 08:52 [facility] Desktop 07/04/23 09:03 [facility] Document 07/11/23 08:53 Desktop 07/11/23 09:03 DL [...] Amt Large (67-100%) Small (1-33%) -Granulation Quality [place] -Slough/Fibrin Yes -Necrosis Amt Small (1-33%) Medium [...] painful last covid. current few days to drsg she's touch wearing is dated for 06/21. [facility] has not changed it since then and had not called for new orders. Right Calf (cm) 35 34 Right Ankle (cm) 21.5 21.5 WC - Nurse 2 - General Ulcer CM Notes Start: 07/04/23 08:52 Freq: Status: Active Protocol: Activity Type Activity Date Activity User E-sign Co-sign Detail Recorded Client Recorded Date Recorded By Document 07/11/23 09:15 Desktop 07/11/23 09:18 07/11/23 09:15 Wound Center [...] BMF Edit Result 07/04/23 08:52 BMF (1) [id number] 07/05/23 06:38 PL (1) Left - Multi-Layered [...] 1 week. This note was generated with [employer] software. It may contain incorrectwords, spelling, and punctuation that were not noted in checking the note beforesigning. 07/11/23 5245 <Electronically signed by Chilango Laughlin MD> Cosigner Signature (if applicable): CC: ~ Signed [facility] Work Phone: [phone] Progress note Author Chilango Laughlin [facility] June 13, 2023 10:53am Note Date/Time June 13, 2023 10:53am [facility] [address] [place] [address] Progress Note - Wound Care 06/13/23 1048 MR#: [id number] Acct: [id number] Name: JULIANA MERIDA Rep #:[id number] : 1960 62 From: Chilango joy MD [...] Method Room Air Charges/Coding Procedures Integumentary 111xxx-113xx: 79610 Carla subq tissue 20 sq cm/< Physical [...] Recorded Date Recorded By Document 05/16/23 09:08 [employer] 05/16/23 09:15 JF Document 05/23/23 09:50 [facility] Desktop 05/23/23 09:56 [facility] Document 05/30/23 09:16 DL Desktop 05/30/23 09:30 DL Document 06/13/23 09:52 [facility] Desktop 06/13/23 09:57 [facility] 05/16/23 05/23/23 05/30/23 09:08 09:50 09:16 - Today's Visit Information Type of service Follow-up Visit Follow-up Visit Follow-up Visit (Physician/SOAP MIXER (Physician/SOAP MIXER (Physician/SOAP MIXER ) ) ) Arrival Mode Wheelchair Wheelchair [...] Pain Free? Yes Yes Yes 06/13/23 09:52 WC - Today's Visit Information Type of service Follow-up Visit (Physician/SOAP MIXER ) Arrival Mode Wheelchair Transfer Assistance None [...] (67-100%) Small (1-33%) -Granulation Quality Red [place] -Slough/Fibrin Yes No -Necrosis Amt Small (1-33%) [...] BMF Edit Result 05/23/23 10:36 BMF (1) [id number] 05/23/23 11:07 BMF Document 05/30/23 10:04 DL [...] Summary of Care Provided Yes Facility Type [facility] Care Facility 06/13/23 10:21 Wound Care Center [...] Clinical Summary of Care Provided Facility Type [facility] Care Facility Assessment/Plan Assessment/Plan (1) Chronic ulcer [...] 2 weeks. This note was generated with [employer] dictation software. It may contain incorrectwords, spelling, and punctuation that were not noted in checking the note beforesigning. 06/13/23 1053 <Electronically signed by Chilango Laughlin MD> Cosigner Signature (if applicable): CC: ~ Signed [facility] Work Phone: [phone] 460-561611-16-2023 Progress note Author Chilango Laughlin [facility] May 30, 2023 10:15am Note Date/Time May 30, 2023 10:15am [facility] [address] [place] [address] Progress Note - Wound Care 05/30/23 1013 MR#: [id number] Acct: [id number] Name: JULIANA MERIDA Rep #:[id number] : 1960 62 From: Chilango joy MD [...] Method Room Air Charges/Coding Procedures Integumentary 111xxx-113xx: 07423 Carla subq tissue 20 sq cm/< Physical [...] Recorded Date Recorded By Document 05/16/23 09:08 [employer] 05/16/23 09:15 [employer] Document 05/23/23 09:50 BM Desktop 05/23/23 09:56 BM Document 05/30/23 09:16 DL Desktop 05/30/23 09:30 DL 05/16/23 05/23/23 05/30/23 09:08 09:50 09:16 - Today's Visit Information Type of service Follow-up Visit Follow-up Visit Follow-up Visit (Physician/SOAP MIXER (Physician/SOAP MIXER (Physician/SOAP MIXER ) ) ) Arrival Mode Wheelchair Wheelchair [...] Recorded Date Recorded By Document 05/16/23 09:08 [employer] 05/16/23 09:15 JF Document 05/23/23 09:50 BM Desktop 05/23/23 09:56 BM Document 05/30/23 09:16 [...] (67-100%) Small (1-33%) -Granulation Quality Red Red [place] -Slough/Fibrin Yes No -Necrosis Amt Small (1-33%) [...] Recorded Date Recorded By Document 05/16/23 09:25 [employer] 05/16/23 09:30 Document 05/23/23 10:16 Desktop 05/23/23 10:21 Document 05/30/23 09:52 Desktop 05/30/23 09:57 DL 05/16/23 05/23/23 05/30/23 [...] Desktop 05/16/23 09:39 KW Document 05/23/23 10:36 [facility] Desktop 05/23/23 10:37 [facility] Edit Result 05/23/23 10:36 BMF (1) [id number] 05/23/23 11:07 BMF Document 05/30/23 10:04 DL [...] Summary of Care Provided Yes Facility Type Licensed Final Expense Agents Care Facility Assessment/Plan Assessment/Plan (1) Chronic ulcer [...] the holiday. This note was generated with [employer] dictation software. It may contain incorrectwords, spelling, and punctuation that were not noted in checking the note beforesigning. 05/30/23 1015 <Electronically signed by Chilango Laughlin MD> Cosigner Signature (if applicable): CC: ~ Signed [facility] Work Phone: [phone] 247-984411-09-2023 Progress note Author Chilango Laughlin [facility] May 23, 2023 10:23am Note Date/Time May 23, 2023 1 0:23am [facility] [address] [place] [address] Progress Note - Wound Care 05/23/23 1021 MR#: [id number] Acct: [id number] Name: JULIANA MERIDA Rep #:[id number] : 1960 62 From: Chilango joy MD [...] Method Room Air Charges/Coding Procedures Integumentary 111xxx-113xx: 90458 Carla subq tissue 20 sq cm/< Physical [...] 09:08 Laptop 05/16/23 09:15 Document 05/23/23 09:50 BM Desktop 05/23/23 09:56 [facility] 05/16/23 05/23/23 09:08 09:50 WC - Today's Visit Information Type of service Follow-up Visit Follow-up Visit (Physician/SOAP MIXER (Physician/SOAP MIXER ) ) Arrival Mode Wheelchair Wheelchair Transfer [...] 09:08 Laptop 05/16/23 09:15 Document 05/23/23 09:50 BM Desktop 05/23/23 09:56 BM 05/16/23 05/23/23 09:08 09:50 Wound Center Nurse [...] 35.5 30.5 Right Ankle (cm) 24.5 18 RUY - Nurse 2 - General Ulcer CM Notes Start: 05/16/23 09:08 Freq: Status: Active Protocol: Activity Type Activity Date Activity User E-sign Co-sign Detail Recorded Client Recorded Date Recorded By Document 05/16/23 09:25 Desktop 05/16/23 09:30 Document 05/23/23 10:16 Desktop 05/23/23 10:21 05/16/23 05/23/23 09:25 10:16 Wound Center Nurse 2 #1 R Lat Ankle -Time 09: 10:17 -Correct Patient Yes Yes -Correct Side, [...] Recorded Date Recorded By Document 05/16/23 09:38 Desktop 05/16/23 09:39 05/16/23 09:38 Wound Care Center Nurse 3 #1 R Lat Ankle -Primary Dressing Applied Aquacel AG 4x4, Mepilex Border -Aquacel AG 4x4 1 -Mepilex Border 1 Right -Multi-Layered Wrap Application Multi-Layer Comp - Right ($ ) Pain Scale: 0-10 Numeric Is Patient Pain Free? Yes - Visit Discharge Discharge Condition Stable Ambulatory Status Wheelchair Transportation yossi nicholas Medication Reconcilliation completed & No provided to [...] 1 week. This note was generated with [employer] software. It may contain incorrectwords, spelling, and punctuation that were not noted in checking the note beforesigning. 05/23/23 1023 <Electronically signed by Chilango Laughlin MD> Cosigner Signature (if applicable): CC: ~ Signed [facility] Work Phone: [phone]) 281-385311-02-2023 Progress note Author Chilango Laughlin [facility] May 16, 2023 9:37am Note Date/Time May 16, 2023 9 :38am [facility] [address] [place] [address] Progress Note - Wound Care 05/16/23 0930 MR#: [id number] Acct: [id number] Name: JULIANA MERIDA Rep #:[id number] : 1960 62 From: Chilango joy MD [...] 09:08 05/16/23 09:08 Charges/Coding Procedures Integumentary 111xxx-113xx: 67857 Carla subq tissue 20 sq cm/< Physical [...] Start: 05/16/23 09:08 Freq: Status: Active Protocol: RUY.ALINE Activity Type Activity Date Activity User E-sign Co-sign Detail Recorded Client Recorded Date Recorded By Document 05/16/23 09:08 Laptop 05/16/23 09:15 05/16/23 09:08 - Today's Visit Information Type of service Follow-up Visit (Physician/SOAP MIXER ) Arrival Mode Wheelchair Patient Identification Verified [...] 1 week. This note was generated with Dragon dictation software. It may contain incorrectwords, spelling, and punctuation that were not noted in checking the note beforesigning. 05/16/23 0937 <Electronically signed by Chilango Laughlin MD> Cosigner Signature (if applicable): CC: ~ Signed [facility] Work Phone: [phone] 856-389910-19-2023 Progress note Author Chilango Laughlin [facility] May 02, 2023 10:11am Note Date/Time May 02, 2023 1 0:11am [facility] [address] [place] [address] Progress Note - Wound Care 05/02/23 1007 MR#: [id number] Acct: [id number] Name: JULIANA MERIDA Rep #:[id number] : 1960 62 From: Chilango joy MD [...] Method Room Air Charges/Coding Procedures Integumentary 111xxx-113xx: 84743 Carla subq tissue 20 sq cm/< Physical [...] Desktop 04/18/23 09:26 RB Document 04/25/23 08:57 [facility] Desktop 04/25/23 09:02 [facility] Document 05/02/23 09:16 [facility] Desktop 05/02/23 09:21 [facility] 04/18/23 04/25/23 05/02/23 09:24 08:57 09:16 - Today's Visit Information Type of service Follow-up Visit Follow-up Visit Follow-up Visit (Physician/SOAP MIXER (Physician/SOAP MIXER (Physician/SOAP MIXER ) ) ) Arrival Mode Wheelchair Wheelchair [...] Desktop 04/18/23 09:26 RB Document 04/25/23 08:57 [facility] Desktop 04/25/23 09:02 [facility] Document 05/02/23 09:16 [facility] Desktop 05/02/23 09:21 [facility] 04/18/23 04/25/23 05/02/23 09:24 08:57 09:16 Wound [...] (1-33%) None Present (0 %) -Granulation Quality [place] Red -Slough/Fibrin Yes Yes Yes -Necrosis Amt [...] By Document 04/18/23 09:38 Desktop 04/18/23 09:43 Document 04/25/23 09:32 Desktop 04/25/23 09:36 Document [...] 09:50 Laptop 04/18/23 09:50 Document 04/25/23 09:41 [facility] Desktop 04/25/23 09:42 [facility] Document 05/02/23 09:44 [facility] Desktop 05/02/23 09:45 [facility] 04/18/23 04/25/23 05/02/23 09:50 09:41 09:44 Wound [...] Wheelchair Transportation Private [employer] [place] Accompanied by [facility] transport Medication Reconcilliation completed & Yes provided to patient/care provider Clinical Summary of Care Provided Yes Facility Type Licensed Final Expense Agents Care Licensed Final Expense Agents Care Facility Facility Assessment/Plan Assessment/Plan (1) Chronic [...] 2 weeks. This note was generated with [employer] dictation software. It may contain incorrectwords, spelling, and punctuation that were not noted in checking the note beforesigning. 05/02/23 1011 <Electronically signed by Chilango Laughlin MD> Cosigner Signature (if applicable): CC: ~ Signed [facility] Work Phone: [phone] 921-203810-12-2023 Progress note Author Chilango Laughlin [facility] April 25, 2023 1:18pm Note Date/Time April 25, 2023 1 :18pm [facility] [address] [place] [address] Progress Note - Wound Care 04/25/23 1317 MR#: [id number] Acct: [id number] Name: JULIANA MERIDA YANELI Rep #:[id number] : 1960 62 From: Chilango joy MD PCP: Bianca Palomares MD Status:REG RCR Location: History of Present Illness Date of Service: 10/12/23 Chief Complaint: Non healing right ankle ulcer [...] Method Room Air Charges/Coding Procedures Integumentary 111xxx-113xx: 53816 Carla subq tissue 20 sq cm/< Physical [...] 04/25/23 08:57 BMF Desktop 04/25/23 09:02 BMF 04/18/23 04/25/23 09:24 08:57 - Today's Visit Information Type of service Follow-up Visit Follow-up Visit (Physician/SOAP MIXER (Physician/SOAP MIXER ) ) Arrival Mode Wheelchair Wheelchair Transfer [...] Desktop 04/18/23 09:26 RB Document 04/25/23 08:57 [facility] Desktop 04/25/23 09:02 BM 04/18/23 04/25/23 09:24 08:57 Wound Center Nurse [...] Amt Medium (34-66%) Small (1-33%) -Granulation Quality [place] Red -Slough/Fibrin Yes Yes -Necrosis Amt Medium [...] By Document 04/18/23 09:38 Desktop 04/18/23 09:43 Document 04/25/23 09:32 Desktop 04/25/23 09:36 04/18/23 04/25/23 09:38 09:32 Wound Center Nurse [...] 09:50 Laptop 04/18/23 09:50 Document 04/25/23 09:41 [facility] Desktop 04/25/23 09:42 [facility] 04/18/23 04/25/23 09:50 09:41 Wound Care Center [...] Wheelchair Wheelchair Transportation Private Auto Accompanied by NH transport Medication Reconcilliation completed & Yes provided to patient/care provider Clinical Summary of Care Provided Yes Facility Type Licensed Final Expense Agents Care Facility Assessment/Plan Assessment/Plan (1) Chronic ulcer [...] 1 week. This note was generated with [employer] software. It may contain incorrectwords, spelling, and punctuation that were not noted in checking the note beforesigning. 04/25/23 1318 <Electronically signed by Chilango Laughlin MD> Cosigner Signature (if applicable): CC: ~ Signed [facility] Work Phone: [phone] 774-302510-05-2023 Progress note Author Chilango Laughlin [facility] April 18, 2023 9:57am Note Date/Time April 18, 2023 9: 57am [facility] [address] [place] [address] Progress Note - Wound Care 04/18/23 0955 MR#: [id number] Acct: [id number] Name: JULIANA MERIDA YANELI Rep #:[id number] : 1960 62 From: Chilango joy MD [...] 09:24 04/18/23 09:24 Charges/Coding Procedures Integumentary 111xxx-113xx: 82892 Carla subq tissue 20 sq cm/< Physical [...] RB Desktop 04/18/23 09:26 RB 04/18/23 09:24 - Today's Visit Information Type of service Follow-up Visit (Physician/SOAP MIXER ) Arrival Mode Wheelchair Transfer Assistance None [...] Attached -Granulation Amt Medium (34-66%) -Granulation Quality [place] -Slough/Fibrin Yes -Necrosis Amt Medium (34-66%) -Necrotic [...] 04/18/23 09:38 GM Desktop 04/18/23 09:43 GM 04/18/23 09:38 Wound Center Nurse 2 #1 [...] 1 week. This note was generated with [employer] software. It may contain incorrectwords, spelling, and punctuation that were not noted in checking the note beforesigning. 04/18/23956 <Electronically signed by Chilango Laughlin MD> Cosigner Signature (if applicable): CC: ~ Signed [facility] Work Phone: 1([phone]) 432-104109-12-2023 Miscellaneous Notes* Telephone Encounter - [place]ton Manager UrologyLori - 03/26/2023 9:44 AM EDT Lucas Sanchez) APPROVED [id number] 03.26.23 - 03.26.24 for 2 visits [facility] Medicare/Portal Lori Traylor Manager Urology [facility] Miscellaneous Notes* Telephone Encounter - Gianna Grullon - 03/13/2023 2:05 PM EDT Pt was registered but upon check in system was giving error for Medicare AB- tried to run several times and error ; associate tried as well ; found that pt had possible new insurance in November through [facility]. Pt paperwork on her info sheet was same that we had scanned in August. Called nursing [facility] they were stumped as well, sent me to the business strategist who is reviewing it. She isto call me back. Pending [facility] Miscellaneous Notes* Telephone Encounter - Funmilayo Pope MD - 03/06/2023 3:41 PM EDT ----- Message from Haylee Jules RN sent at 03/06/2023 9:31 AM EDT ----- Please enter new CAM order for Prolia. Current order is >1 yr old. Pt's appt Tuesday 03/13. Thanks Haylee documented in [facility]Hol[facility] Progress note Author Chilango Laughlin [facility] February 07, 2023 11:52am Note Date/Time February 07, 2023 11:3 5am [facility] [address] [place] [address] Progress Note - Wound Care 02/07/23 1135 MR#: [id number] Acct: [id number] Name: JULIANA MERIDA YANELI Rep #:[id number] : 1960 62 From: Chilango joy MD [...] Method Room Air Charges/Coding Procedures Integumentary 150xxx-152xx: 97464 Skin sub graft trnk/arm/leg Physical Exam Const [...] Date Recorded By Document 01/17/23 09:59 JF [id number] 01/17/23 10:00 JF Document 01/24/23 09:02 KW [id number] 01/24/23 09:20 KW Document 01/31/23 08:45 RB [id number] 01/31/23 08:51 RB Document 02/07/23 09:16 RB [id number] 02/07/23 09:17 RB 01/17/23 01/24/23 01/31/23 09:59 09:02 08:45 WC - Today's Visit Information Type of service Follow-up Visit Follow-up Visit Follow-up Visit (Physician/SOAP MIXER (Physician/SOAP MIXER (Physician/SOAP MIXER ) ) ) Arrival Mode Wheelchair Wheelchair [...] Visit Information Type of service Follow-up Visit (Physician/SOAP MIXER ) Arrival Mode Wheelchair Transfer Assistance None [...] Recorded Date Recorded By Document 01/17/23 09:59 [id number] 01/17/23 10:00 Document 01/24/23 09:02 KW [id number] 01/24/23 09:20 KW Document 01/31/23 08:45 RB [id number] 01/31/23 08:51 RB Document 02/07/23 09:16 RB [id number] 02/07/23 09:17 RB 01/17/23 01/24/23 01/31/23 09:59 [...] Small (1-33%) Medium (34-66%) -Granulation Quality Red [place] -Slough/Fibrin Yes -Necrosis Amt Medium (34-66%) Small [...] Date Recorded By Document 01/17/23 10:11 MW [id number] 01/17/23 10:20 MW Document 01/24/23 09:52 MW [id number] 01/24/23 09:54 MW Document 01/31/23 09:28 MW [id number] 01/31/23 09:36 MW Document 02/07/23 10:00 MW [id number] 02/07/23 10:08 MW 01/17/23 01/24/23 01/31/23 10:11 [...] Date 11/13/27 11/13/27 12/14/27 -Product Lot Number [id number] 002 001 -Percent Used 100 100 100 -Lot number of Saline Used [id number] -Bleeding Controlled with Pressure Pressure Pressure -Treatment [...] Disc -Expiration Date 11/13/27 -Product Lot Number [id number] -Percent Used 100 -Lot number of Saline Used [id number] -Bleeding Controlled with Pressure -Treatment Response Procedure [...] Recorded Date Recorded By Document 01/17/23 12:06 [id number] 01/17/23 12:07 JF Document 01/24/23 10:01 JF [id number] 01/24/23 10:02 JF Document 01/31/23 09:49 RB [id number] 01/31/23 09:50 RB Document 02/07/23 10:22 RB [id number] 02/07/23 10:23 RB 01/17/23 01/24/23 01/31/23 12:06 [...] Stable Ambulatory Status Wheelchair Wheelchair Wheelchair Transportation [employer] Medication Reconcilliation completed & Yes Yes No [...] 2 weeks. This note was generated with [employer] dictation software. It may contain incorrectwords, spelling, and punctuation that were not noted in checking the note beforesigning. 02/07/23 1152 <Electronically signed by Chilango Laughlin MD> Cosigner Signature (if applicable): CC: ~ Signed [facility] Work Phone: [phone] 129-896507-20-2023 Progress note Author Chilango Laughlin [facility] January 31, 2023 10:02am Note Date/Time January 31, 2023 10:0 2am [facility] [address] [place] [address] Progress Note - Wound Care 01/31/23 1000 MR#: [id number] Acct: [id number] Name: JULIANA MERIDA YANELI Rep #:[id number] : 1960 62 From: Chilango joy MD [...] Method Room Air Charges/Coding Procedures Integumentary 150xxx-152xx: 89593 Skin sub graft trnk/arm/leg Physical Exam Const [...] Date Recorded By Document 01/17/23 09:59 JF [id number] 01/17/23 10:00 JF Document 01/24/23 09:02 KW [id number] 01/24/23 09:20 KW Document 01/31/23 08:45 RB [id number] 01/31/23 08:51 RB 01/17/23 01/24/23 01/31/23 09:59 09:02 08:45 - Today's Visit Information Type of service Follow-up Visit Follow-up Visit Follow-up Visit (Physician/SOAP MIXER (Physician/SOAP MIXER (Physician/SOAP MIXER ) ) ) Arrival Mode Wheelchair Wheelchair [...] Date Recorded By Document 01/17/23 09:59 JF [id number] 01/17/23 10:00 JF Document 01/24/23 09:02 KW [id number] 01/24/23 09:20 KW Document 01/31/23 08:45 RB [id number] 01/31/23 08:51 RB 01/17/23 01/24/23 01/31/23 09:59 [...] Small (1-33%) Medium (34-66%) -Granulation Quality Red [place] -Slough/Fibrin Yes -Necrosis Amt Medium (34-66%) Small [...] Date Recorded By Document 01/17/23 10:11 MW [id number] 01/17/23 10:20 MW Document 01/24/23 09:52 MW [id number] 01/24/23 09:54 MW Document 01/31/23 09:28 MW [id number] 01/31/23 09:36 MW 01/17/23 01/24/23 01/31/23 10:11 [...] Date 11/13/27 11/13/27 12/14/27 -Product Lot Number [id number] 002 001 -Percent Used 100 100 100 -Lot number of Saline Used [id number] -Bleeding Controlled with Pressure Pressure Pressure -Treatment [...] Recorded Date Recorded By Document 01/17/23 12:06 [id number] 01/17/23 12:07 Document 01/24/23 10:01 [id number] 01/24/23 10:02 Document 01/31/23 09:49 [id number] 01/31/23 09:50 01/17/23 01/24/23 01/31/23 12:06 10:01 09:49 Wound [...] Ambulatory Status Wheelchair Wheelchair Wheelchair Transportation [employer] Medication Reconcilliation completed & Yes Yes No [...] 1 week. This note was generated with [employer] dictation software. It may contain incorrectwords, spelling, and punctuation that were not noted in checking the note beforesigning. 01/31/23 1002 <Electronically signed by Chilango Laughlin MD> Cosigner Signature (if applicable): CC: ~ Signed [facility] Work Phone: [phone]) 182-891107-13-2023 Progress note Author Chilango Laughlin [facility] January 24, 2023 11:28am Note Date/Time January 24, 2023 11:2 8am [facility] [address] [place] [address] Progress Note - Wound Care 01/24/23 1125 MR#: [id number] Acct: [id number] Name: JULIANA MERIDA YANELI Rep #:[id number] : 1960 62 From: Chilango joy MD [...] Method Room Air Charges/Coding Procedures Integumentary 150xxx-152xx: 06630 Skin sub graft trnk/arm/leg Physical Exam Const [...] Date Recorded By Document 01/17/23 09:59 JANICE [id number] 01/17/23 10:00 JF Document 01/24/23 09:02 DARCY [id number] 01/24/23 09:20 KW 01/17/23 01/24/23 09:59 09:02 WC - Today's Visit Information Type of service Follow-up Visit Follow-up Visit (Physician/SOAP MIXER (Physician/SOAP MIXER ) ) Arrival Mode Wheelchair Wheelchair Patient [...] No Change in Behavior -Alleviating Factors/Interventions None - Nurse 1 - General Ulcer Measurement Start: 01/17/23 09:50 Freq: Status: Active Protocol: Activity Type Activity Date Activity User E-sign Co-sign Detail Recorded Client Recorded Date Recorded By Document 01/17/23 09:59 JF [id number] 01/17/23 10:00 JF Document 01/24/23 09:02 KW [id number] 01/24/23 09:20 KW 01/17/23 01/24/23 09:59 09:02 [...] Medium (34-66%) Small (1-33%) -Granulation Quality Red [place] -Slough/Fibrin Yes -Necrosis Amt Medium (34-66%) Small [...] Date Recorded By Document 01/17/23 10:11 MW [id number] 01/17/23 10:20 MW Document 01/24/23 09:52 MW [id number] 01/24/23 09:54 MW 01/17/23 01/24/23 10:11 09:52 [...] -Expiration Date 11/13/27 11/13/27 -Product Lot Number [id number] 002 -Percent Used 100 100 -Lot number of Saline Used [id number] -Bleeding Controlled with Pressure Pressure -Treatment Response [...] Date Recorded By Document 01/17/23 12:06 JANICE [id number] 01/17/23 12:07 Document 01/24/23 10:01 [id number] 01/24/23 10:02 01/17/23 01/24/23 12:06 10:01 Wound [...] Stable Ambulatory Status Wheelchair Wheelchair Transportation [employer] Medication Reconcilliation completed & Yes Yes provided [...] 1 week. This note was generated with [employer] dictation software. It may contain incorrectwords, spelling, and punctuation that were not noted in checking the note beforesigning. 01/24/23 1128 <Electronically signed by Chilango Laughlin MD> Cosigner Signature (if applicable): CC: ~ Signed [facility] Work Phone: [phone]) 282-980507-06-2023 Progress note Author Chilango Laughlin [facility] January 17, 2023 12:32pm Note Date/Time January 17, 2023 12:29 pm [facility] [place] [address] Progress Note - Wound Care 01/17/23 1226 MR#: [id number] Acct: [id number] Name: JULIANA MERIDA Rep #:[id number] : 1960 62 From: Chilango joy MD [...] 09:59 01/17/23 09:59 Charges/Coding Procedures Integumentary 150xxx-152xx: 62645 Skin sub graft trnk/arm/leg Physical Exam Const [...] Date Recorded By Document 01/17/23 09:59 JANICE [id number] 01/17/23 10:00 JANICE 01/17/23 09:59 RUY - Today's Visit Information Type of service Follow-up Visit (Physician/SOAP MIXER ) Arrival Mode Wheelchair Patient Identification Verified [...] Numeric Is Patient Pain Free? Yes RUY Nath Nurse 1 - General Ulcer Measurement Start: 01/17/23 09:50 Freq: Status: Active Protocol: Activity Type Activity Date Activity User E-sign Co-sign Detail Recorded Client Recorded Date Recorded By Document 01/17/23 09:59 [id number] 01/17/23 10:00 01/17/23 09:59 Wound Center Nurse 1 #1 [...] Recorded Date Recorded By Document 01/17/23 10:11 [id number] 01/17/23 10:20 MW 01/17/23 10:11 Wound Center [...] Disc -Expiration Date 11/13/27 -Product Lot Number [id number] -Percent Used 100 -Bleeding Controlled with [...] Date Recorded By Document 01/17/23 12:06 JANICE [id number] 01/17/23 12:07 JANICE 01/17/23 12:06 Wound Care [...] 1 week. This note was generated with [employer] dictation software. It may contain incorrectwords, spelling, and punctuation that were not noted in checking the note beforesigning. 01/17/23 1232 <Electronically signed by Chilango Laughlin MD> Cosigner Signature (if applicable): CC: ~ Signed [facility] Work Phone: [phone]) 319-539906-30-2023 Progress note Author Beata Pardo [facility] January 11, 2023 5:30pm Note Date/Time January 11, 2023 5:30 pm [facility] [address] [place] [address] Progress Note - Wound Care 01/11/23 1723 MR#: [id number] Acct: [id number] Name: JULIANA MERIDA Rep #:[id number] : 1960 62 From: Beata HILLIARD PCP: [...] Method Room Air Charges/Coding Procedures Integumentary 150xxx-152xx: 23251 Skin sub graft trnk/arm/leg Physical Exam Const [...] Recorded Date Recorded By Document 12/13/22 09:39 [facility] [id number] 12/13/22 09:42 [facility] Document 12/20/22 09:48 [facility] [id number] 12/20/22 09:59 BM Document 01/03/23 09:05 [facility] [id number] 01/03/23 09:16 BM Document 01/11/23 13:25 PL [id number] 01/11/23 13:35 PL 12/13/22 12/20/22 01/03/23 09:39 09:48 09:05 - Today's Visit Information Type of service Follow-up Visit Follow-up Visit Follow-up Visit (Physician/SOAP MIXER (Physician/SOAP MIXER (Physician/SOAP MIXER ) ) ) Arrival Mode Wheelchair Wheelchair [...] WILL TAKE PAIN MEDS UPON RETURN TO [facility] 01/11/23 13:25 - Today's Visit Information Type of service Follow-up Visit (Physician/SOAP MIXER ) Arrival Mode Wheelchair Transfer Assistance None [...] Recorded Date Recorded By Document 12/13/22 09:39 [facility] [id number] 12/13/22 09:42 [facility] Document 12/20/22 09:48 [facility] [id number] 12/20/22 09:59 [facility] Document 01/03/23 09:05 [facility] [id number] 01/03/23 09:16 [facility] 12/13/22 12/20/22 01/03/23 09:39 09:48 09:05 Wound [...] Date Recorded By Document 12/13/22 09:53 MW [id number] 12/13/22 10:02 MW Document 12/20/22 10:48 MW [id number] 12/20/22 10:58 MW Document 01/03/23 10:08 MW [id number] 01/03/23 10:17 MW Document 01/11/23 15:55 PL [id number] 01/11/23 15:56 PL 12/13/22 12/20/22 01/03/23 09:53 [...] Date 09/13/27 10/14/27 10/14/27 -Product Lot Number [id number] 001 006 -Percent Used 100 100 100 -Lot number of Saline Used [id number] -Bleeding Controlled with Pressure Pressure Pressure -Treatment [...] Disc -Expiration Date 10/14/27 -Product Lot Number [id number] -Percent Used 100 -Lot number of [...] Date Recorded By Document 12/13/22 10:17 DL [id number] 12/13/22 10:18 DL Document 12/20/22 11:45 DL [id number] 12/20/22 11:46 DL Document 01/03/23 10:33 [facility] [id number] 01/03/23 10:34 [facility] Document 01/11/23 14:04 RB [id number] 01/11/23 14:05 RB 12/13/22 12/20/22 01/03/23 10:17 [...] Clinical Summary of Care Provided Facility Type Licensed Final Expense Agents Care Licensed Final Expense Agents Care Licensed Final Expense Agents Care Facility Facility Facility Orders Sent Yes [...] as scheduled. This note was generated with [employer] software. It may contain incorrectwords, spelling, and punctuation that were not noted in checking the note beforesigning. 01/11/23 3420 <Electronically signed by Beata HILLIARD> Cosigner Signature (if applicable): CC: ~ Signed [facility] Work Phone: 1(497) 165-937806-22-2023 Progress note Author Chilango Laughlin [facility] January 03, 2023 1:45pm Note Date/Time January 03, 2023 10:4 3am [facility] [address] [place] [address] Progress Note - Wound Care 01/03/23 1037 MR#: [id number] Acct: [id number] Name: JULIANA MERIDA Rep #:[id number] : 1960 62 From: Chilango joy MD [...] Method Room Air Charges/Coding Procedures Integumentary 150xxx-152xx: 43170 Skin sub graft trnk/arm/leg Physical Exam Const [...] Recorded Date Recorded By Document 12/13/22 09:39 [facility] [id number] 12/13/22 09:42 [facility] Document 12/20/22 09:48 [facility] [id number] 12/20/22 09:59 [facility] Document 01/03/23 09:05 [facility] [id number] 01/03/23 09:16 [facility] 12/13/22 12/20/22 01/03/23 09:39 09:48 09:05 - Today's Visit Information Type of service Follow-up Visit Follow-up Visit Follow-up Visit (Physician/SOAP MIXER (Physician/SOAP MIXER (Physician/SOAP MIXER ) ) ) Arrival Mode Wheelchair Wheelchair [...] WILL TAKE PAIN MEDS [facility]ON RETURN TO [facility] WC - Nurse 1 - General Ulcer Measurement Start: 12/13/22 09:39 Freq: Status: Active Protocol: Activity Type Activity Date Activity User E-sign Co-sign Detail Recorded Client Recorded Date Recorded By Document 12/13/22 09:39 [facility] [id number] 12/13/22 09:42 [facility] Document 12/20/22 09:48 [facility] [id number] 12/20/22 09:59 [facility] Document 01/03/23 09:05 [facility] [id number] 01/03/23 09:16 [facility] 12/13/22 12/20/22 01/03/23 09:39 09:48 09:05 Wound [...] Date Recorded By Document 12/13/22 09:53 MW [id number] 12/13/22 10:02 MW Document 12/20/22 10:48 MW [id number] 12/20/22 10:58 MW Document 01/03/23 10:08 MW [id number] 01/03/23 10:17 MW 12/13/22 12/20/22 01/03/23 09:53 [...] Date 09/13/27 10/14/27 10/14/27 -Product Lot Number [id number] 001 006 -Percent Used 100 100 100 -Lot number of Saline Used [id number] -Bleeding Controlled with Pressure Pressure Pressure -Treatment [...] Date Recorded By Document 12/13/22 10:17 DL [id number] 12/13/22 10:18 DL Document 12/20/22 11:45 DL [id number] 12/20/22 11:46 DL Document 01/03/23 10:33 [facility] [id number] 01/03/23 10:34 BM 12/13/22 12/20/22 01/03/23 10:17 11:45 10:33 Wound [...] Wheelchair Wheelchair Transportation Private Auto Private Auto F Facility Type Licensed Final Expense Agents Care Licensed Final Expense Agents Care [facility] Care Facility Facility Facility Orders Sent Yes [...] with me. This note was generated with [employer] dictation software. It may contain incorrectwords, spelling, and punctuation that were not noted in checking the note beforesigning. 01/03/23 1345 <Electronically signed by Chilango Laughlin MD> Cosigner Signature (if applicable): CC: ~ Signed [facility] Work Phone: [phone]) 798-953406-08-2023 Progress note Author therese Laughlin [facility] December 20, 2022 12:33pm Note Date/Time December 20, 2022 12:33 pm [facility] [address] [place] [address] Progress Note - Wound Care 12/20/22 1223 MR#: [id number] Acct: [id number] Name: JULIANA MERIDA YANELI Rep #:[id number] : 1960 62 From: Chilango joy MD [...] Method Room Air Charges/Coding Procedures Integumentary 150xxx-152xx: 75626 Skin sub graft trnk/arm/leg Physical Exam Const [...] Recorded Date Recorded By Document 12/13/22 09:39 [facility] [id number] 12/13/22 09:42 [facility] Document 12/20/22 09:48 [facility] [id number] 12/20/22 09:59 [facility] 12/13/22 12/20/22 09:39 09:48 - Today's Visit Information Type of service Follow-up Visit Follow-up Visit (Physician/SOAP MIXER (Physician/SOAP MIXER ) ) Arrival Mode Wheelchair Wheelchair Transfer [...] WILL TAKE PAIN MEDS [facility] WC - Nurse 1 - General Ulcer Measurement Start: 12/13/22 09:39 Freq: Status: Active Protocol: Activity Type Activity Date Activity User E-sign Co-sign Detail Recorded Client Recorded Date Recorded By Document 12/13/22 09:39 [facility] [id number] 12/13/22 09:42 [facility] Document 12/20/22 09:48 [facility] [id number] 12/20/22 09:59 [facility] 12/13/22 12/20/22 09:39 09:48 Wound Center Nurse [...] Date Recorded By Document 12/13/22 09:53 MW [id number] 12/13/22 10:02 MW Document 12/20/22 10:48 MW [id number] 12/20/22 10:58 MW 12/13/22 12/20/22 09:53 10:48 [...] -Expiration Date 09/13/27 10/14/27 -Product Lot Number [id number] 001 -Percent Used 100 100 -Lot number of Saline Used [id number] -Bleeding Controlled with Pressure Pressure -Treatment Response [...] Date Recorded By Document 12/13/22 10:17 DL [id number] 12/13/22 10:18 DL Document 12/20/22 11:45 DL [id number] 12/20/22 11:46 DL 12/13/22 12/20/22 10:17 11:45 [...] Transportation Private Auto Private Auto Facility Type [facility] Care Licensed Final Expense Agents Care Facility Facility Orders Sent Yes Yes [...] if needed. This note was generated with [employer] software. It may contain incorrectwords, spelling, and punctuation that were not noted in checking the note beforesigning. 12/20/22 1233 <Electronically signed by Chilango Laughlin MD> Cosigner Signature (if applicable): CC: ~ Signed [facility] Work Phone: 1(670) 435-912406-01-2023 Progress note Author Chilango Laughlin [facility] December 13, 2022 10:30am Note Date/Time December 13, 2022 10:19 am [facility] [address] [place] [address] Progress Note - Wound Care 12/13/22 1017 MR#: [id number] Acct: [id number] Name: JULIANA MERIDA YANELI Rep #:[id number] : 1960 62 From: Chilango joy MD [...] 09:39 12/13/22 09:39 Charges/Coding Procedures Integumentary 150xxx-152xx: 88497 Skin sub graft trnk/arm/leg Physical Exam Const [...] Start: 12/13/22 09:39 Freq: Status: Active Protocol: RUY.LOWEXT Activity Type Activity Date Activity User E-sign Co-sign Detail Recorded Client Recorded Date Recorded By Document 12/13/22 09:39 [facility] [id number] 12/13/22 09:42 [facility] 12/13/22 09:39 WC - Today's Visit Information Type of service Follow-up Visit (Physician/SOAP MIXER ) Arrival Mode Wheelchair Transfer Assistance None [...] Recorded Date Recorded By Document 12/13/22 09:39 [facility] [id number] 12/13/22 09:42 [facility] 12/13/22 09:39 Wound Center Nurse 1 #1 [...] Date Recorded By Document 12/13/22 09:53 MW [id number] 12/13/22 10:02 MW 12/13/22 09:53 Wound Center [...] Disc -Expiration Date 09/13/27 -Product Lot Number [id number] -Percent Used 100 -Lot number of Saline Used [id number] -Bleeding Controlled with Pressure -Treatment Response Procedure [...] if needed. This note was generated with [employer] software. It may contain incorrectwords, spelling, and punctuation that were not noted in checking the note beforesigning. 12/13/22 1030 <Electronically signed by Chilango Laughlin MD> Cosigner Signature (if applicable): CC: ~ Signed [facility] Work Phone: [phone]) 414-347705-25-[address] Laughlin [facility] December 06, 2022 10:40am Note Date/Time December 06, 2022 10:40 am [facility] [address] [place] [address] Progress Note - Wound Care 12/06/22 1038 MR#: [id number] Acct: [id number] Name: JULIANA MERIDA Rep #:[id number] : 1960 62 From: Chilango joy MD [...] anaerobic bacteria isolated. Charges/Coding Procedures Integumentary 150xxx-152xx: 15108 Skin sub graft trnk/arm/leg Physical Exam Const [...] Date Recorded By Document 11/22/22 08:59 DL [id number] 11/22/22 09:12 DL Document 11/29/22 09:28 [facility] [id number] 11/29/22 09:43 BMF Document 12/06/22 09:36 DL [id number] 12/06/22 09:46 DL 11/22/22 11/29/22 12/06/22 08:59 09:28 09:36 WC - Today's Visit Information Type of service Initial Visit Follow-up Visit Follow-up Visit (Physician/SOAP MIXER (Physician/SOAP MIXER ) ) Arrival Mode Wheelchair Wheelchair Wheelchair [...] & Hygeine No Communication Assessment Preferred language Anguillan Able to Read Yes Able to Write [...] in Ability to Perform Denies Any Declines Culture/Spiritism/Mineral Technologist Cultural/Spiritism Needs that may affect No Treatment Plan Would you allow our hospital senior tableau developer to No meet you for the purpose of spiritual/ emotional support? Mineral Technologist to contact place of shinto No Teaching: Wound Center Discharge Instructions -Person Taught Patient Dressing Your Wound -Person Taught Patient *Welcome to the Wound Center -Person Taught Patient WC - Nurse 1 - General Ulcer Measurement Start: 11/22/22 08:59 Freq: Status: Active Protocol: Activity Type Activity Date Activity User E-sign Co-sign Detail Recorded Client Recorded Date Recorded By Document 11/22/22 08:59 DL [id number] 11/22/22 09:12 DL Document 11/29/22 09:28 [facility] [id number] 11/29/22 09:43 BMF Document 12/06/22 09:36 DL [id number] 12/06/22 09:46 DL 11/22/22 11/29/22 12/06/22 08:59 [...] (34-66%) Large (67-100%) -Granulation Quality Red Red Pale,[place] -Slough/Fibrin Yes -Necrosis Amt Small (1-33%) Medium [...] Date Recorded By Document 11/22/22 09:38 MW [id number] 11/22/22 09:48 MW Document 11/29/22 09:52 [id number] 11/29/22 10:00 JF Document 12/06/22 10:26 MW [id number] 12/06/22 10:37 MW 11/22/22 11/29/22 12/06/22 09:38 [...] -Expiration Date 06/14/27 08/15/27 -Product Lot Number [id number] -Percent Used 100 100 -Lot number of Saline Used [id number] -Bleeding Controlled with Pressure Pressure Pressure -Treatment [...] Date Recorded By Document 11/22/22 10:16 RB [id number] 11/22/22 10:17 RB Document 11/29/22 10:09 [facility] [id number] 11/29/22 10:10 [facility] 11/22/22 11/29/22 10:16 10:09 Wound Care Center [...] Ambulatory Status Ambulatory Wheelchair Transportation Private Auto F Medication Reconcilliation completed & No provided to patient/care provider Clinical Summary of Care Provided Yes Facility Type [facility] Care Facility Assessment/Plan Assessment/Plan (1) Chronic ulcer [...] if needed. This note was generated with [employer] software. It may contain incorrectwords, spelling, and punctuation that were not noted in checking the note beforesigning. 12/06/22 1040 <Electronically signed by Chilango Laughlin MD> Cosigner Signature (if applicable): CC: ~ Signed [facility] Work Phone: [phone]) [phone] Laughlin [facility] November 29, 2022 1:11pm Note Date/Time November 29, 2022 1:11p m [facility] [address] [place] [address] Progress Note - Wound Care 11/29/22 1302 MR#: [id number] Acct: [id number] Name: JULIANA MERIDA Rep #:[id number] : 1960 62 From: Chilango joy MD [...] anaerobic bacteria isolated. Charges/Coding Procedures Integumentary 150xxx-152xx: 25672 Skin sub graft trnk/arm/leg Physical Exam Const [...] Recorded Date Recorded By Document 11/22/22 08:59 [id number] 11/22/22 09:12 DL Document 11/29/22 09:28 [facility] [id number] 11/29/22 09:43 [facility] 11/22/22 11/29/22 08:59 09:28 - Today's Visit Information Type of service Initial Visit Follow-up Visit (Physician/SOAP MIXER ) Arrival Mode Wheelchair Wheelchair Transfer Assistance [...] & Hygeine No Communication Assessment Preferred language Anguillan Able to Read Yes Able to Write [...] in Ability to Perform Denies Any Declines Culture/Spiritism/Mineral Technologist Cultural/Spiritism Needs that may affect No Treatment Plan Would you allow our hospital senior tableau developer to No meet you for the purpose of spiritual/ emotional support? Mineral Technologist to contact place of shinto No Teaching: Wound Center Discharge Instructions -Person Taught Patient Dressing Your Wound -Person Taught Patient *Welcome to the Wound Center -Person Taught Patient WC - Nurse 1 - General Ulcer Measurement Start: 11/22/22 08:59 Freq: Status: Active Protocol: Activity Type Activity Date Activity User E-sign Co-sign Detail Recorded Client Recorded Date Recorded By Document 11/22/22 08:59 DL [id number] 11/22/22 09:12 DL Document 11/29/22 09:28 BM [id number] 11/29/22 09:43 BMF 11/22/22 11/29/22 08:59 09:28 [...] Date Recorded By Document 11/22/22 09:38 MW [id number] 11/22/22 09:48 MW Document 11/29/22 09:52 [id number] 11/29/22 10:00 JF 11/22/22 11/29/22 09:38 09:52 Wound Center Nurse [...] Epifix -Expiration Date 06/14/27 -Product Lot Number [id number] -Percent Used 100 -Lot number of Saline Used [id number] -Bleeding Controlled with Pressure Pressure -Treatment Response [...] Date Recorded By Document 11/22/22 10:16 RB [id number] 11/22/22 10:17 RB Document 11/29/22 10:09 [facility] [id number] 11/29/22 10:10 [facility] 11/22/22 11/29/22 10:16 10:09 Wound Care Center [...] Summary of Care Provided Yes Facility Type [facility] Care Facility Assessment/Plan Assessment/Plan (1) Chronic ulcer [...] if needed. This note was generated with [employer] dictation software. It may contain incorrectwords, spelling, and punctuation that were not noted in checking the note beforesigning. 11/29/22 1311 <Electronically signed by Chilango Laughlin MD> Cosigner Signature (if applicable): CC: ~ Signed [facility] Work Phone: [phone]) 877-283905-12-2023 History and physical note Author Dr. Laughlin [facility] November 23, 2022 11:49am Note Date/Time November 22, 2022 1:34p m [facility] [address] [place] [address] H&P Exam - Wound Care 11/22/22 1322 MR#: [id number] Acct: [id number] Name: JULIANA MERIDA Rep #:[id number] : 1960 62 From: Chilango joy MD PCP: iBanca Palomares MD Status:REG RCR Location: History of [...] nausea, vomitingor change in bowel habit reported. [facility] Medical History (Updated 11/22/22 @ 13:32 [...] Date Recorded By Document 11/22/22 08:59 DL [id number] 11/22/22 09:12 DL 11/22/22 08:59 - Today's [...] & Hygeine No Communication Assessment Preferred language Anguillan Able to Read Yes Able to Write [...] in Ability to Perform Denies Any Declines Culture/Spiritism/Mineral Technologist Cultural/Spiritism Needs that may affect No Treatment Plan Would you allow our hospital senior tableau developer to No meet you for the purpose of spiritual/ emotional support? Mineral Technologist to contact place of shinto No Teaching: Wound Center Discharge Instructions -Person Taught Patient Dressing Your Wound -Person Taught Patient *Welcome to the Wound Center -Person Taught Patient WC - Nurse 1 - General Ulcer Measurement Start: 11/22/22 08:59 Freq: Status: Active Protocol: Activity Type Activity Date Activity User E-sign Co-sign Detail Recorded Client Recorded Date Recorded By Document 11/22/22 08:59 DL [id number] 11/22/22 09:12 DL 11/22/22 08:59 Wound Center [...] Date Recorded By Document 11/22/22 09:38 MW [id number] 11/22/22 09:48 MW 11/22/22 09:38 Wound Center [...] Date Recorded By Document 11/22/22 10:16 RB [id number] 11/22/22 10:17 RB 11/22/22 10:16 Wound Care [...] Charges/Coding Visit Charges Office Visits / Consults: 91098 OV L4 New Procedures Integumentary 111xxx-113xx: 18659 Carla subq tissue 20 sq cm/< Assessment/Plan [...] if needed. This note was generated with [employer] dictation software. It may contain incorrectwords, spelling, and punctuation that were not noted in checking the note beforesigning. 11/23/22 8417 <Electronically signed by Chilango Laughlin MD> Cosigner Signature (if applicable): CC: ~ Signed [facility] Work Phone: [phone] 469-188404-05-2023 Hospital Discharge instructions Patient Education 10/17/2022 05:07:08 [...] thin towel or cloth. You may use inot-yab-ldjdlnb pain medicine (NSAIDS or nonsteroidal anti- inflammatory [...] or is irritated You re-injure your ankle [phone] [employer]. [address] [place] [address]. All rights reserved. This information is not intended as a substitute for professional medical care. Always follow yourhealthcare professional's instructions. Follow Up Care 10/17/2022 04:04:56 With:LANA ARRIETA Address: [address] [place] [address]- Business (1) When:2-4 days [facility] 04-05-2023 Note Discharge Instructions Thank you for allowing [facility] to assist you with your healthcare needs. The following is importantdischarge information regarding your hospital visit. Diagnosis from Today's Visit Leg pain-swelling Sprain What to Do Next Instructions from Your Care Team No qualifying data available. Post Acute Orders No qualifying data available. You Need to Schedule the Following Appointments Follow Up with LANA ARRIETA When Within 2-4 days Where: [address] [place], [place] [id number]- Business (1) Allergies Apricots (Rash) Bee Stings (Anaphylactic reaction) Valentine (Rash) Dilaudid Lactose Milk Products (Rash) Peas (Rash) Phenergan Tomatoes tuberculin purified protein derivative (Lactose intolerance) Medications Please ask your primary doctor or pharmacist before taking any other medication not listed, including over the counter drugs, herbal medications, vitamins and or supplements as they may interact [facility] medications. What How Much When Instructions [...] thin towel or cloth. You may use fpch-ogv-unzcpvr pain medicine (NSAIDS or nonsteroidal anti- inflammatory [...] or is irritated You re-injure your ankle [phone] [employer]. [address] [place] [address]. All rights reserved. This information is not intended as a substitute for professional medical care. Always follow yourhealthcare professional's instructions. Additional Information VACCINATE! IT SAVES LIVES! Members of the community who have not yet received the COVID-19 vaccine and would like to receive it can visit one of [facility] vaccine clinics. There are many vaccine clinic locations within the [facility]. For locations and available times, please visit [email or web address] It is important to note that some COVID mobile vaccine clinics are held outdoors and may be canceled in rainy or stormy conditions. To learn more about pediatric vaccinations (ages 5-11), we invite you to visit the [facility] webpage. [email or web address]://[email or web address]/[email or web address]-Irkxb-[email or web address]-[email or web address] [email or web address].htmlTo learn more about the COVID-19 vaccine, we invite you to visit the CDC website for a list of frequently asked questions. https://www.cdc.gov/coronavirus/2019-ncov/vaccines/faq.html [facility] Patient Portal Access Instructions: Stay connected with your healthcare team and access your personal medical information anytime with the [facility] Patient Portal. If you would like a full copy of your medical records please contact the [facility] Medical Records Department Saturday through Saturday between 8a.m. and 4:30p.m. Please follow the directions below to access the portal: 1.Access the email account you provided upon registration to the [facility].2.Look for an invitation email from [facility].3.Open the email and access the invitation link: Accept Invitation to [employer]4.Fill in the required lozano to create your account. Sign into [email or web address] with your username and password that you [...] you will allow to register on the [facility] Patient Portal for access to your information. You can also access the [employer] Patient Portal on the [employer] Simply click on Health Records under [employer] and then click on the [employer] logo. HOW TO SAFELY DISPOSE OF PRESCRIPTION [...] Call your local pharmacy or go to [email or web address]/9F8El5x to find one close to you.3.Make use of household items: Use cat litter or old coffee grounds to dispose medications if other options arenot available. Mix your drugs with these household products, seal them in an airtight container andthrow it into the garbage. Call [facility]: [phone] to be sure your drugs can be [...] been reviewed and explained to me and IMAGNOLIA WANDA J understand my current condition and have read and understand these discharge instructions. I have received a written copy of the plan/instructions. If I have questions, I am aware that I should contact my doctor. Patient/Manager Clinical Services Signature: Date/Time: Relationship to Patient: Witness Name/Signature: Date/Time: [facility]04-05-2023 Note ORIGINAL EXAMINATION: 6 XRAY [...] Sign Date: 10/17/2022 5:04:00 AM Ordering Provider: [address]05-2023 Note ORIGINAL EXAMINATION: THREE XRAY VIEWS OF [...] Sign Date: 10/17/2022 5:02:30 AM Ordering Provider: [place] [address]-05-2023 Note ORIGINAL EXAMINATION: 6 XRAY VIEWS OF [...] Sign Date: 10/17/2022 5:04:00 AM Ordering Provider: [facility]04-05-2023 Note ORIGINAL EXAMINATION: THREE XRAY [...] Sign Date: 10/17/2022 5:02:30 AM Ordering Provider: [facility]03-02-2023 History of Present illness Narrative* Funmilayo Pope [...] getting TPI. Now seeing Dr. Ruelas in [place] Has morphine pump Meeting with pain mgmt tomorrow to make adjustments Brief Rheumatological history - First visit 02/28/2021 Jluiana Merida is a 60 year old female [...] Antibody Latest Ref Range: <30 IU/mL <12 Anti-WATCH MANUFACTURING SUPERVISOR Latest Ref Range: <1.0 AI 0.7 Anti-SSB [...] file. Funmilayo Pope MD [facility] Hospital Discharge instructions Patient Education 04/28/2022 19:25:31 [...] Swelling, pain or redness in one leg [phone] [employer]. [address] [place] [address]. All rights reserved. This information is not intended as a substitute for professional medical care. Always follow yourhealthcare professional's instructions. Follow Up Care 04/28/2022 17:19:37 With:LANA ARRIETA Address: [address] [facility] [place] [address]- Business (1) When:2-4 days Comments:Schedule appointment for close follow-up.Resume all routine home medications.Return to the ED if symptoms worsen. [facility] 10-15-2022 Note ORIGINAL EXAMINATION: ONE [...] Date: 04/28/2022 6:24:18 PM Ordering Provider: TAVIA [facility]10-15-2022 Note ORIGINAL EXAMINATION: ONE XRAY VIEW [...] Date: 04/28/2022 6:24:18 PM Ordering Provider: TAVIA [facility]07-20-2022 Miscellaneous Notes* Telephone Encounter - Esther Lopez [place] [facility] - 01/31/2022 10:53 AM EDT Prolia - NO PA REQ for medicare B Esther Lopez [employer] [facility] Advised Ashtyn to schedule pt. * Telephone Encounter - Berenice Edmond PA-C - 01/31/2022 9:40 AM EDT ARMINDA Edmond PA-C documented in [facility]Hol[facility] Miscellaneous Notes* Addendum Note - Berenice Edmond PA-C - 01/31/2022 9:41 AM EDT Addended by: BERENICE EDMOND on: 01/31/2022 09:41 AM Modules accepted: Orders documented in this encounterHol[facility] History of Present illness Narrative* Berenice Edmond PA-C - 01/31/2022 8:56 AM EDT Images from the original note were not included. [facility] General Arthritis and Rheumatology Berenice Edmond [address] [address] RHEUMATOLOGY PROGRESS NOTE Patient is here for [...] getting TPI. Now seeing Dr. Ruelas in [place] Has morphine pump Meeting with pain mgmt [...] Antibody Latest Ref Range: <30 IU/mL <12 Anti-WATCH MANUFACTURING SUPERVISOR Latest Ref Range: <1.0 AI 0.7 Anti-SSB [...] Pope. Berenice Edmond PA-C documented in this encounterHolmes [facility]06-01-2022 History of Present illness Narrative* Ronaldo Villarreal MD - 12/13/2021 10:00 AM EDT [facility] HPI Juliana Merida is a 61 year old female who presents for TPI. Her pain is located over the neck (R>L) and low back. There is also radiation into the arms and legs. The patient has an ITP pump and is seeking a new provider for management. This was placed in 2011 and replaced in [address] Ruelas in [place]. A referral was entered for an consultation with main [facility] for an evaluation. Review of [...] (FLONASE) 50 mcg/actuation nasal spray Use 1 [place] in each nostril once daily. . 0 [...] daily as needed. 1 Inhalation 11 Insulin Table [place], Disposable, (PEN NEEDLE) 29 x 1/2 ndle [...] Bupivacaine 5 %, Amitriptyline 2 % 0 Bcgdepawjoirx-Epbakxcu-Ikvthq (CENTRUM SILVER) tab Take 1 tablet by [...] times (time out, procedure start, procedure end). [place] protocol documentation / Pre-Procedure checklist: 1. Unless [...] Ronaldo Villarreal MD [facility] * Madeleine Verma MA - 12/13/2021 [...] The patient is nervous/anxious. documented in this encounterHolmes [facility]06-01-2022 Procedure note* Ronaldo Villarreal MD [...] procedurewell without apparent complications. documented in this encounterHolmes County [facility]06-01-2022 Instructions* Patient Instructions* Tejal Carter LPN - 12/13/2021 9:29 AM EDT documented in this encounterHolmes County [facility]06-01-2022 Nurse Note* Madeleine Verma MA [...] are you scheduled to receive one? n Manager Transfer's Name: Medical Transportation documented in this [facility]05-20-2022 Evaluation + Plan note Diagnostic Tests Pending * Urine Culture 12/01/21 [facility] 05-20-2022 Hospital Discharge instructions Patient Education 12/01/2021 [...] or a fever with an unknown cause. Qqks-ohf-tsiuuun medicines will not shorten the duration of [...] your healthcare provider Feeling weak or dizzy [id number] [employer]. [address] [place] [address]. All rights reserved. This information is not intended as a substitute for professional medical care. Always follow yourhealthcare professional's instructions. Follow Up Care 11/30/2021 18:10:39 With:LANA ARRIETA MD Address: [address] [place] [address] [place] [address]- When:2-4 days [facility] 05-19-2022 HCoV 229E RNA IRISH+non-probe Ql (Nph)Not Detected *NA* (11/30/21 8:58 PM) Auto Viro/Sero [id number] Procedure note* Luis Pagan, DO - 11/21/2021 1:00 PM EDT Patient [...] chart. Luis Pagan DO documented in this [facility]04-28-2022 Miscellaneous Notes* Telephone Encounter - Samara Coronado - 11/09/2021 3:02 PM EDT 11/09/2021 PT WILL CALL IN WITH JOI PHONE NUMBER FOR THE CANCELLATION LIST. PT. NEEDS TO COME IN FORTPI WITH JUDAH PORRAS. WAS SCHEDULED INCORRECT. Samara Coronado documented in this [facility]04-05-2022 Miscellaneous Notes* Telephone Encounter - Funmilayo Pope MD - 10/17/2021 12:34 PM EDT Does reclast need PA? documented in this [facility]01-24-2022 NoteHNO ID: [id number] Author: Yrn Frost RT(R) Service: ? Author Type: Technologist Type: Progress [...] BY: RT Elvin(R) August 07, 2021 11:37 [facility]07-23-2008 History of Past illness Narrative* Problem [...] of this encounter (statuses as of 10/17/2021) [facility] History of Past illness Narrative* Problem [...] of this encounter (statuses as of 11/09/2021) [address]23-2008 History of Past illness Narrative* Problem [...] of this encounter (statuses as of 11/21/2021) [address]23[address]2008 History of Past illness Narrative* Problem [...] of this encounter (statuses as of 11/29/2021) [address]23[address]2008 History of Past illness Narrative* Problem [...] of this encounter (statuses as of 12/13/2021) [address]23[address]2008 History of Past illness Narrative* Problem [...] of this encounter (statuses as of 01/31/2022) [address]23[address]2008 History of Past illness Narrative* Problem [...] of this encounter (statuses as of 01/31/2022) [place] [address]-23-2008 History of Past illness Narrative* Problem Noted [...] of this encounter (statuses as of 03/07/2022) [address]23[address]2008 History of Past illness Narrative* Problem [...] of this encounter (statuses as of 09/05/2022) [address]23[address]2008 History of Past illness Narrative* Problem [...] of this encounter (statuses as of 09/13/2022) [facility] of Past illness Narrative* Problem [...] of this encounter (statuses as of 03/07/2023) [address]23[address]2008 History of Past illness Narrative* Problem [...] of this encounter (statuses as of 03/13/2023) [facility] History of Past illness Narrative* Problem [...] of this encounter (statuses as of 03/13/2023) [facility] History of Past illness Narrative* Problem [...] of this encounter (statuses as of 03/26/2023) [facility] History of Past illness Narrative* Problem [...] of this encounter (statuses as of 09/20/2023) [facility] History of Past illness Narrative* Problem [...] of this encounter (statuses as of 10/07/2023) [facility] HospitalConsult note Author Eric Kancherla [facility] Note Date/Time January 21, 2025 8:23 am [facility] Medical Records Department [address] [place] [address] Pre-Anesthesia Evaluation 01/21/2510 MR#: [id number] Acct: [id number] Name: JULIANA MERIDA Rep #:[id number] : 1960 64 From: Eric Monte MD PCP: Mariah Atkinson MD Status:REG SDC Y Race: C Location: [place] [address] ASA Classification* ASA Classification ASA Classification: 3 [...] Procedure(s): EGD Anesthesia History Anesthesia History - corporate compliance director: Anesthesia History - corporate compliance director Hx Hospitalization No 01/20/25 11:52 Any Problems [...] take am of surgery PONV PONV - corporate compliance director: PONV - corporate compliance director Female Yes 01/20/25 11:52 HX of Motion [...] 01/21/25 07:45 Respiratory Assessment Respiratory Assessment - corporate compliance director: Respiratory Tract Infection Hx - corporate compliance director Hx Respiratory Tract Infection No 01/30/24 12:09 STOP Sleep Apnea STOP Sleep Apnea - corporate compliance director: STOP Sleep Apnea - corporate compliance director Hx Hypertension Yes 01/20/25 11:52 Hx Sleep [...] Tobacco Use History Tobacco Use History - corporate compliance director: Tobacco Use History - corporate compliance director Tobacco Use Smoking Status Light Smoker (<10/day) 01/20/25 11:52 Hx Tobacco Use Yes 01/20/25 11:52 Years Smoking Packs Smoked per Day Smoking Cessation Date was within the last 15 years Hx Smoking Cessation Date Hx Smoking Cessation No 01/20/25 11:52 Counseling Any additional information?: Yes Smoking Status: Former smoker (Patient quit smoking 2 and half months ago.) Hematologic Medial History Hematologic Hx - corporate compliance director: Hematologic 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 Specify any problems Hx of Preganancy in last 3 Months Nurse Filling Out Transfusion & Questions: Date: Time: Patient unable to answer at Yes 01/20/25 11:52 this time (ie. confused, unrespo /Reproduction History /Reproductive History - corporate compliance director: /Reproductive Hx- corporate compliance director Hx Now No 01/20/25 11:52 Gestational Age [...] pain when walking Leg cramps Lives in assisted Hx of fracture of hip Wears glasses [...] 2.5 mg/3 mL 2.5 mg inhalation Q4H [place] N SOB 07/29/21 Unknown History (0.083 %) [...] Exam Resp clear to auscultation bilaterally 01/21/25 0823 <Electronically signed by Eric parsons MD> Date _ Eric Monte MD Cosigner Signature: Date CC: ~ Signed [facility] Work Phone: Consult note Author Kimmie Serna [facility] Note Date/Time January 21, 2025 10:0 2am [facility] Medical Records Department [address] [place] [address] Anesthesia Postop Eval II 01/21/2549 MR#: [id number] Acct: [id number] Name: JULIANA MERIDA Rep #:[id number] : 1960 64 From: Kimmie DE LA CRUZ PCP: Mariah Atkinson MD Status:REG SDC Y Race: C Location: [place] [address] Anesthesia Postop Eval I Sum Postop Eval [...] No Vomiting: No Complications Anesthesia Complication: No 01/21/25948 <Electronically signed by Kimmie Serna CRNA> Date _ Kimmie Serna CRNA Cosigner Signature: Date CC: ~ Signed [facility] Work Phone: evaluation + Plan note Future Appointments Appointment Date:09/28/2024 01:00:00 PM Scheduled Provider:MAULIK العلي DO Location:UROLOGY Appointment Type:URO OV Future Scheduled Tests Radiology* Renal 09/13/24 [facility] Evaluation + Plan note Future Appointments Appointment Date:10/01/2025 02:00:00 PM Scheduled Provider:MAULIK العلي DO Location:UROLOGY Appointment Type:URO OV Future Scheduled Tests Radiology* Renal 09/13/24 [facility] Evaluation note* Diagnosis Disturbance of skin sensation- Primary [facility]* Diagnosis Other osteoporosis without current pathological fracture- Primary documented in this encounter [facility] note* Diagnosis Myofascial pain- Primary Mylagia and myositis, unspecified Implantable intrathecal infusion pump present documented in this encounter [facility] noteNo assessment information availableWBarney Children's Medical Center Work Phone: evaluation note* Diagnosis Other osteoporosis without current pathological fracture- Primary Primary osteoarthritis involving multiple joints Vitamin D deficiency Unspecified vitamin D deficiency documented [facility]* Diagnosis Other osteoporosis without current pathological fracture- Primary documented in this encounter [facility] note* Diagnosis Other osteoporosis without current pathological fracture- Primary [facility]* Diagnosis Low back pain, unspecified back pain laterality, unspecified chronicity, unspecified whether sciatica present- Primary Pain in both lower extremities Osteoporosis, unspecified osteoporosis type, unspecified pathological fracture presence documented in this encounter [facility]* Diagnosis Onset Date Resolution Status Insulin dependent diabetes mellitus acute Tobacco abuse acute 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 [facility] Work Phone: evaluation note* Diagnosis Onset Date Resolution Status Insulin dependent diabetes mellitus acute Tobacco abuse acute 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 Closed fracture of distal end of left fibula noneactive Closed fracture of distal end of left fibula noneactive Insulin dependent diabetes mellitus acute Tobacco abuse acute 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 [facility] Work Phone: Evaluation note* Diagnosis Onset Date [...] of distal end of left fibula noneactive [facility] Work Phone: Evaluation note* Diagnosis Osteoporosis, unspecified osteoporosis type, unspecified pathological fracture presence- Primary documented in this encounter [facility]* Diagnosis Osteoporosis, unspecified osteoporosis type, unspecified pathological fracture presence- Primary documented in this encounter [facility]* Diagnosis Onset Date Resolution Status Chronic [...] right ankle with fat layer exposed chronic [facility] Work Phone: Evaluation note* Diagnosis Onset Date [...] right ankle with fat layer exposed chronic [facility] Work Phone: Evaluation note* Diagnosis Onset Date [...] right ankle with fat layer exposed chronic [facility] Work Phone: Evaluation note* Diagnosis Onset Date [...] right ankle with fat layer exposed chronic [facility] Work Phone: Evaluation note* Diagnosis Other osteoporosis without current pathological fracture- Primary documented in this encounter [facility]* Diagnosis Osteoporosis, unspecified osteoporosis type, unspecified pathological fracture presence- Primary documented in this encounter [facility]* Diagnosis Onset Date Resolution Status Insulin [...] with fat layer exposed chronic Hyperlipidemia chronic [facility] Work Phone: Evaluation note* Diagnosis Onset Date [...] with fat layer exposed chronic Hyperlipidemia chronic [facility] Work Phone: Evaluation note* Diagnosis Onset Date [...] of tobacco use chron ic Hyperlipidemia chronic [facility] Work Phone: Evaluation note* Diagnosis Age-related osteoporosis without current pathological fracture- Primary Senile osteoporosis documented in this encounter [facility] HospitalHistory and physical note Author Fer Friend [facility] Note Date/Time January 21, 2025 8:37 am [facility] Medical Records Department [address] [place] [address] History & Physical Exam 01/21/25 0836 MR#: [id number] Acct: [id number] Name: JULIANA MERIDA YANELI Rep #:[id number] : 1960 64 From: Fer Simmons DO PCP: Mariah Atkinson MD Status:[facility] Location: [place] [address] HPI - General General Date of Admission: 01/21/25 Date of Service: 01/21/25 HPI Narrative JULIANA MERIDA, is a 64 F who presentsWAILMario MAGNOLIA, is a 64 F who presents to the office today for establishment with [facility] for concerns of abdominal epigastric pain, heartburn, and constipation. She resides at [facility] due to history of stroke affecting mobility, [...] emesis, abdominal cramping, diarrhea, hematochezia, and melena. [facility] Medical History History of pressure injury of skin Gastric reflux History of pain when walking Leg cramps Lives in assisted Hx of fracture of hip Wears glasses [...] 2.5 mg/3 mL 2.5 mg inhalation Q4H [place] N SOB 07/29/21 Unknown History (0.083 %) [...] subcut FR 11/20/24 History subcutaneous pen injector (Johnnieunjohnathonro) Held on 01/20/25. Instructions: ON HOLD FOR [...] to the office today for establishment with [facility] for concerns of abdominal epigastric pain, heartburn, and constipation. Constipation is most likely drug-induced. Discussed care plan with her. She has never had an EGD but her last colonoscopy was done in [place] around 2022. * polyethylene glycol (Miralax) 17gm [...] Mariah Atkinson MD; Fer Simmons DO~ Signed [facility] Work Phone: Hospital course Narrative No data available for this section [facility] Hospital Discharge instructions No data available for this section [facility] Hospital Discharge instructions Additional Instructions 17 mm exophytic mass right kidney seen. Further workup advised as an outpatient. Increase furosemide to 60 mg once a day, or as advised by Dr. Palomares if different dosing desired.[facility] Work Phone: Hospital Discharge instructionsAdditional Instructions Wear the Daljit wrap to prevent further swelling in the knee immobilizer to stabilize the 2 fractures in your lower leg. Please do not bear any weight on your right leg as this has the chance to displace the fractures. You are allowed to bear weight/transfer on your left leg but as you will only be doing this with 1 leg you will need increased help with transfers. Please follow-up with the orthopedic surgeon to discuss further treatment options and return to the ER should you have any further concernsWBarney Children's Medical Center Work Phone: Note* TAVIA NORRIS MD: SIGN, VERIFY Event Display: EKG [ED AOH] - CV Authored Date: [id number] [facility] Progress note No data available for this section [facility] Reason for referral (narrative)No reason for referral information availableWBarney Children's Medical Center Work Phone: Summary Purpose Family History Relationship Condition Age at Onset Recorded Date/T aristeo Unknown Family History?- Unknown June 6:56pm Family History?- Unknown June 6:56pm Relationship Condition Age at Onset Recorded Date/T aritseo Unknown Family History?- Unknown June 5:56pm Family History?- Unknown June 5:56pm Advance Directives Advance Directive Response Recorded Date/ Time Advance Directives No July 27, 2016 3:54pm Living Will No July 29 11:45pm Power of Regional Hr Manager No July 29, 2021 11:45pm Advance Directive Response Recorded Date/ Time Advance Directives No July 27, 2016 2:54pm Living Will No July 29 10:45pm Power of Regional Hr Manager No July 29, 2021 10:45pm Advance Directive Response Recorded Date/ Time Advance Directives No July 27, 2016 3:54pm Living Will Yes November 24, 2023 4 :30pm Power of Regional Hr Manager No November 24, 2023 4:30pm Advance Directive Response Recorded Date/ Time Living Will No September 12, 2024 11:13pm Power of Regional Hr Manager Yes September 12 11:13pm Name of Medical Power of Regional Hr Manager jose armas September 12, 2024 11:13pm Living Will No September 27, 2024 1:40am Power of Regional Hr Manager Yes September 27 1:40am Name of Medical Power of Regional Hr Manager JOSE ARMAS September 27, 2024 1:40am Advance Directives No July 27, 2016 3:54pm Advance Directive Response Recorded Date/ Time Living Will No September 27, 2024 1:40am Do you have a Healthcare Power of Regional Hr Manager? Yes September 27, 2024 1:40am Name of Medical Power of Regional Hr Manager JOSE ARMAS September 27, 2024 1:40am Do you have a Healthcare Power of Regional Hr Manager? No January 20, 2025 11:52am Advance Directives No July 27, 2016 3:54pm Advance Directive Response Recorded Date/ Time Living Will No September 27, 2024 1:40am Do you have a Healthcare Power of Regional Hr Manager? Yes September 27, 2024 1:40am Name of Medical Power of Regional Hr Manager JOSE ARMAS September 27, 2024 1:40am Do you have a Healthcare Power of Regional Hr Manager? No January 20, 2025 11:52am Do you have a Healthcare Power of Regional Hr Manager? Yes January 24, 2025 10:43pm Name of Medical Power of Regional Hr Manager Jose Armas January 24, 2025 10:43pm Advance Directives No July 27, 2016 3:54pm [...] CONSULT TO PAIN MGT Ronaldo Villarreal MD [address] [place] [address] Referral ID Status Reason Start Date Expiration Date Visits Requested Visits Authorized [id number] Ref Not Required PCP Requested Referral 12/13/2021 [...] am Epigastric abdominal pain January 21 7:19am Chief Complaint Admit Date FLANK PAIN September 27, 2024 1:3 5am ABD Pain November 20, 2024 2:17pm fall January 24, 2025 10:3 2pm Additional Source Comments INFORMATION SOURCE (unrecogn ized section and content) DATE CREATED AUTHOR 01/08/2018 [facility] DATE CREATED AUTHOR AUTHOR'S ORGANIZ ATION 2021 [facility] DATE CREATED AUTHOR AUTHOR'S ORGANIZ ATION 10/07/2023 [facility] DATE CREATED AUTHOR AUTHOR'S ORGANIZ ATION 11/21/2024 [facility] DATE CREATED AUTHOR AUTHOR'S ORGANIZ ATION 01/24/2025 [facility] DATE CREATED AUTHOR AUTHOR'S ORGANIZ ATION 01/24/2025 [facility] Source Comments (unrecognize d section and content) In the event this informatio n is protected by the Federal Confidentiality of Alcohol and Drug Abuse Patient Records regulations: The Federal rules restrict any use of the information to criminally investigate or prosecute any alcohol or drug abuse patient.[facility] HospitalIn the event this information is protected by the Federal Confidentiality of Alcohol and Drug Abuse Patient Records regulations: The Federal rules restrict any use of the information to criminally investigate or prosecute any alcohol or drug abuse patient.[facility] HospitalIn the event this information is protected by the Federal Confidentiality of Alcohol and Drug Abuse Patient Records regulations: The Federal rules restrict any use of the information to criminally investigate or prosecute any alcohol or drug abuse patient.[facility] HospitalIn the event this information is protected by the Federal Confidentiality of Alcohol and Drug Abuse Patient Records regulations: The Federal rules restrict any use of the information to criminally investigate or prosecute any alcohol or drug abuse patient.[facility] HospitalIn the event this information is protected by the Federal Confidentiality of Alcohol and Drug Abuse Patient Records regulations: The Federal rules restrict any use of the information to criminally investigate or prosecute any alcohol or drug abuse patient.[facility] HospitalIn the event this information is protected by the Federal Confidentiality of Alcohol and Drug Abuse Patient Records regulations: The Federal rules restrict any use of the information to criminally investigate or prosecute any alcohol or drug abuse patient.[facility] HospitalIn the event this information is protected by the Federal Confidentiality of Alcohol and Drug Abuse Patient Records regulations: The Federal rules restrict any use of the information to criminally investigate or prosecute any alcohol or drug abuse patient.[facility] HospitalIn the event this information is protected by the Federal Confidentiality of Alcohol and Drug Abuse Patient Records regulations: The Federal rules restrict any use of the information to criminally investigate or prosecute any alcohol or drug abuse patient.[facility] HospitalIn the event this information is protected by the Federal Confidentiality of Alcohol and Drug Abuse Patient Records regulations: The Federal rules restrict any use of the information to criminally investigate or prosecute any alcohol or drug abuse patient.[facility] HospitalIn the event this information is protected by the Federal Confidentiality of Alcohol and Drug Abuse Patient Records regulations: The Federal rules restrict any use of the information to criminally investigate or prosecute any alcohol or drug abuse patient.[facility] HospitalIn the event this information is protected by the Federal Confidentiality of Alcohol and Drug Abuse Patient Records regulations: The Federal rules restrict any use of the information to criminally investigate or prosecute any alcohol or drug abuse patient.[facility] [facility] Hospital[facility] the event this information is protected by the Federal Confidentiality of Alcohol and Drug Abuse Patient Records regulations: The Federal rules restrict any use of the information to criminally investigate or prosecute any alcohol or drug abuse patient.[facility] the event this information is protected by the Federal Confidentiality of Alcohol and Drug Abuse Patient Records regulations: The Federal rules restrict any use of the information to criminally investigate or prosecute any alcohol or drug abuse patient.[facility] the event this information is protected by the Federal Confidentiality of Alcohol and Drug Abuse Patient Records regulations: The Federal rules restrict any use of the information to criminally investigate or prosecute any alcohol or drug abuse patient.[facility] HospitalIn the event this information is protected by the Federal Confidentiality of Alcohol and Drug Abuse Patient Records regulations: The Federal rules restrict any use of the information to criminally investigate or prosecute any alcohol or drug abuse patient.[facility] HospitalIn the event this information is protected by the Federal Confidentiality of Alcohol and Drug Abuse Patient Records regulations: The Federal rules restrict any use of the information to criminally investigate or prosecute any alcohol or drug abuse patient.[facility] HospitalIn the event this information is protected by the Federal Confidentiality of Alcohol and Drug Abuse Patient Records regulations: The Federal rules restrict any use of the information to criminally investigate or prosecute any alcohol or drug abuse patient.[facility] HospitalIn the event this information is protected by the Federal Confidentiality of Alcohol and Drug Abuse Patient Records regulations: The Federal rules restrict any use of the information to criminally investigate or prosecute any alcohol or drug abuse patient.[facility] HospitalIn the event this information is protected by the Federal Confidentiality of Alcohol and Drug Abuse Patient Records regulations: The Federal rules restrict any use of the information to criminally investigate or prosecute any alcohol or drug abuse patient.[facility] HospitalIn the event this information is protected by the Federal Confidentiality of Alcohol and Drug Abuse Patient Records regulations: The Federal rules restrict any use of the information to criminally investigate or prosecute any alcohol or drug abuse patient.[facility] HospitalIn the event this information is protected by the Federal Confidentiality of Alcohol and Drug Abuse Patient Records regulations: The Federal rules restrict any use of the information to criminally investigate or prosecute any alcohol or drug abuse patient.[facility] Reason for Visit (unrecogniz ed section and content) Reason Comments Imm/Inj Specialty Diagnoses / Procedures Referred By Contac t Referred To Contact Neurology / HEMONC INFUSION Diagnoses // prolia Procedures DENOSUMAB INJECTION TREATMENT 30 MINUTES Funmilayo Pope MD [address] [place] [address] Infusion [facility] [address] [place] [address] Referral ID Status Reason Start Date Expiration Date V isits Requested Visits Authorized [id number] Authorized 07/27/2024 07/15/2025 1 2 Specialty Diagnoses / Procedures Referred By Contac t Referred To Contact HEMATOLOGY/ONCOLOGY Diagnoses Other osteoporosis without current pathological fracture Procedures DENOSUMAB INJECTION Prolia [id number] Funmilayo Pope MD [address] [place] [address] [facility] [place] [address] [place] [address] Referral ID Status Reason Start Date Expiration Date V isits Requested Visits Authorized [id number] Authorized 01/31/2022 03/26/2024 2 2 Reason Comments Medication Follow-up Reason Comments Patient Update NEW PHONE NUMBER Reason Comments Infusion Specialty Diagnoses / Procedures Referred By Contbenitez t Referred To Contact Diagnoses Other osteoporosis without current pathological fracture Procedures Funmilayo King MD [address] [place] [address] Joe Treat [facility] [address] [place] [address] Referral ID Status Reason Start Date Expiration Date V isits Requested Visits Authorized [id number] Authorized 09/12/2021 12/11/2021 99 99 Reason Comments Procedure Reason Comments Osteoarthritis Reason Comments Medication Authorization Prolia - NO PA REQ for medicare B Reason Comments Osteoporosis BMD on 08/07/2021 Reason Comments Orders Reason Comments APPROVED Prolia ([place]) APPROV ED [id number] 03.26.23 - 03.26.24 for 2 visits [facility] Medicare/Portal Reason Comments Results Reason Comments Appointment Reason Comments Medication Preauthorization Prolia- [place] Approved [id number] [facility] Medicare/Portal 07.15.24-07.15.25 2 visits Care Teams (unrecognized sec tion and content) Sr Risk Management Consultant Relationship Specialty Start Date End Date Lana Arrieta MD [address] [place] [address] PCP - General [facility] Practice 12/28/20 Sr Risk Management Consultant Relationship Specialty Start Date End Date Lana Arrieta MD [address] [place] [address] PCP - General [facility] Practice 12/28/20 Sr Risk Management Consultant Relationship Specialty Start Date End Date Lana Arrieta MD [address] [place] [address] PCP - [facility] Practice 12/28/20 Sr Risk Management Consultant Relationship Specialty Start Date End Date Lana Arrieta MD [address] [place], [place] [id number] PCP - General Family Practice 12/28/20 Sr Risk Management Consultant Relationship Specialty Start Date End Date Lana Arrieta MD [address] [place] [address] PCP - General Family Practice 12/28/[address] [address] Anesthesiology 01/31/22 Sr Risk Management Consultant Relationship Specialty Start Date End Date Lana Arrieta MD [address] [place] [address] PCP - General Family Practice 12/28/[address] [address] Anesthesiology 01/31/22 Sr Risk Management Consultant Relationship Specialty Start Date End Date Lana Arrieta MD [address] [place] [address] PCP - General Family Practice 12/28/20 [facility] [address] [address] Anesthesiology 01/31/22 Sr Risk Management Consultant Relationship Specialty Start Date End Date Lana Arrieta MD [address] [place] [address] PCP - General Family Medicine 12/28/[address] [address] Anesthesiology 01/31/22 Sr Risk Management Consultant Relationship Specialty Start Date End Date Lana Arrieta MD [address] [place] [address] PCP - General Family Medicine 12/28/20 Lauren Ruelas [address] [place] [address] Anesthesiology 01/31/22 Team Status: Active Member Role [...] Dr. Festus Luque MD Attending Provider Active Sr Risk Management Consultant Relationship Specialty Start Date End Date Lana Arrieta MD [address] [place] [address] PCP - General Family Medicine 12/28/20 [facility] ansariberta Risco [address] [place], [place] [address] Anesthesiology 01/31/22 Sr Risk Management Consultant Relationship Specialty Start Date End Date Lana Arrieta MD [address] [place] [address] PCP - General Family Medicine 12/28/20 Lauren Ruelas [address] [place] [address] Anesthesiology 01/31/22 Sr Risk Management Consultant Relationship Specialty Start Date End Date Lana Arrieta MD [address] [place] [address] PCP - General Family Medicine 12/28/20 Lauren Ruelas [address] [place] [address] Anesthesiology 01/31/22 Sr Risk Management Consultant Relationship Specialty Start Date End Date Lana Arrieta MD [address] [place] [address] PCP - General Family Medicine 12/28/20 Lauren Ruelas [address] [place] [address] Anesthesiology 01/31/22 Sr Risk Management Consultant Relationship Specialty Start Date End Date Lana Arrieta MD [address] [place] [address] PCP - General Family Medicine 12/28/20 Lauren Ruelas MD [address] [place] [address] Anesthesiology 01/31/22 Sr Risk Management Consultant Relationship Specialty Start Date End Date Lana Arrieta MD [address] [place] [address] PCP - General Family Medicine 12/28/20 Lauren Ruelas MD [address] [place] [address] Anesthesiology 01/31/22 Team Status: Inactive Member Role [...] Dr. Dino Pena MD Emergency Provider Active Sr Risk Management Consultant Relationship Specialty Start Date End Date Lana Arrieta MD [address] [place], [place] [address] PCP - General Family Medicine 12/28/20 Lauren Ruelas MD [address] [place] [address] Anesthesiology 01/31/22 Sr Risk Management Consultant Relationship Specialty Start Date End Date Lana Arrieta MD [address] [place] [address] PCP - General Family Medicine 12/28/20 Lauren Ruelas MD [address] [place] [id number] Anesthesiology 01/31/22 Sr Risk Management Consultant Relationship Specialty Start Date End Date Lana Arrieta MD [address] [place] [address] PCP - General Family Medicine 12/28/20 Lauren Ruelas MD [address] [place] [address] Anesthesiology 01/31/22 Team Status: Active Member Role [...] September 27, 2024 End: September 27, 2024 Sr Risk Management Consultant Relationship Specialty Start Date End Date Lana Arrieta MD [address] [place] [address] PCP - General Family Medicine 12/28/20 Lauren Ruelas MD [address] [place] [address] Anesthesiology 01/31/22 Team Status: Active Member Role/Relationship [...] Provider Active St art: January 21, 2025 Team Status: Inactive Member Role/Relationship Status Dates Dr. Mariah Atkinson MD Primary Care Provider Ac tive Start: January 24, 2025 End: January 25, 2025 Dr. Rancho Orozco DO Emergency Provider Active Start: January 24, 2025 End: January 25, 2025 Goals (unrecognized section and content) Goals may be documented in a n alternate section Care Team (unrecognized sect ion and content) Care Team Personnel Name: LANA ARRIETA MD Position: P4 Physician - Primary Care Med Service: Active Provider Member Role: Primary Care Physician Address: Address: [address] [place] [id number]- [place] Care Team Related Persons Name: JOSE ARMAS Care Team Personnel Name: LANA ARRIETA MD Position: P4 Physician - Primary Care Med Service: Active Provider Member Role: Primary Care Physician Address: Address: [address] [facility] [place] [address]- Care Team Related Persons Name: JOSE ARMAS [...] BE BASED ON THE PRIMARY CLINICAL RECORDS. [employer] provides no warranty or guarantee of the accuracy or completeness of information in this document.
[2025-01-27] VITALS (26 sets, daily range): BP systolic 102–170; BP diastolic 54–70; PULSE 78–102; RESP 9–20; TEMP 36.8–38.4; O2SAT 90–99; BMI 38.3
[2025-01-27 00:04] LABS: Red Blood Cells-Urine 0-5 SEEN /hpf (0-5)
[2025-01-27 00:13] LABS: Ammonia 26.3 umol/L (11-51); Hematocrit 41.1 % (37-47); Hemoglobin 13.8 g/dL (12.0-15.0); Immature Granulocytes Count 0.270 X10^3/uL (0.0-0.0); Mean Corp Hgb Conc 33.6 g/dL (32-36); Mean Corpuscular Volume 92.4 fL (81-99); Mean Platelet Vol. 10.2 fl (6.2-12.0); NRBC Flagged by Analyzer 0 % (0-5); Platelet Count 213 K/mm3 (150-450); RBC Distribution Width CV 14.8 % (11.6-14.6); RBC Distribution Width SD 50.4 fl (35.1-43.9); Red Blood Count 4.45 M/mm3 (4.2-5.4); White Blood Count 15.0 K/mm3 (4.4-11.0)
[2025-01-27 00:19] LABS: AST(SGOT) 111 U/L (<=31); Alanine Aminotransfer ALT/SGPT 122 U/L (<=34); Albumin, Serum 3.5 g/dL (3.4-4.8); Alkaline Phosphatase 84 U/L (35-104); Anion Gap 10 (5-15); BUN 21 mg/dL (4-19); BUN/Creat Ratio 17.9 RATIO (10-20); Bilirubin, Direct 0.22 mg/dL (0.00-0.30); Calcium,Total 10.1 mg/dL (7.6-11.0); Carbon Dioxide 28.4 mmol/L (21.0-32.0); Chloride 98 mmol/L (98-108); Estimated Creatinine Clearance 55.64 ml/min (50-250); Globulin 3.2 g/dL (2.2-4.2); Glucose 84 mg/dL (70-99); Potassium 5.4 mmol/L (3.3-5.1); Procalcitonin 0.22 ng/mL (<=0.10)
--- NOTE | 2025-01-27 00:43 | PCM.HP.STD ---
[facility] - General General Date of Admission: 01/27/25 Date of Service: 01/27/25 Chief Complaint: AMS. HPI Narrative ELSA LAM, is a 64 F with a past medical history of essential hypertension; on atenolol and lisinopril, hyperlipidemia; on atorvastatin, former tobacco abuse; with subsequent asthma/COPD on fluticasone, montelukast and as needed albuterol/ipratropium, morbid (class III) obesity; with BMI of 40.4 this admission on tirzepatide, history of X; on apixaban twice daily, DM-2; of unknown control on insulin glargine 100 units subcu a.m. and 90 units SQ at bedtime plus insulin lispro 50 units subcu daily and 54 units subcu with dinner, diabetic neuropathy; on pregabalin twice daily, history of CVA (2013) with Right hemiplegia and hemiparesis, schizophrenia; on lurasidone plus olanzapine, bipolar disorder; on duloxetine twice daily and clonazepam as needed, RLS, history of EtOH abuse, history of substance abuse, chronic pain syndrome; with implanted pain pump, opiate-induced constipation on naloxegol plus as needed polyethylene glycol daily, history of iron deficiency anemia, OAB; on oxybutynin, GERD; on omeprazole twice daily plus famotidine daily, OA; with spondylosis causing chronic back pain, history of Left hip fracture (2018) and history of pressure injury of the skin of the Right ankle and recent evaluation for fall with subsequent closed proximal Right tibia/fibular fracture with patient evaluated in the ER here on January 25, 2025 with DNR-CC; without intubation CODE STATUS who now re-presents to [facility] ER with staff at her ECF noting altered mental status. Ms. Lam is not a fully-reliable historian at this time so information was gathered from chart, medical staff and computer. According to the records the patient was notably taking oxycodone-acetaminophen every 6 hours as needed in addition to her pain pump with subsequent altered mental status causing her to be sent in for further evaluation and treatment. In the ER she was noted to have a fever of 100.4 ?F with Leukocytosis of 15K and Left-shift of 1.8% with a corresponding UA positive for Acute Cystitis; without hematuria in addition to mildly elevated procalcitonin of 0.22 ng/mL present on admission concerning for Sepsis complicated by clinical evidence of Toxic/Metabolic Encephalopathy compounded by laboratory evidence of Hyperkalemia of 5.4 mmol/L present on admission in the setting of recent Fall with closed proximal Right tib-fib fracture and she was then admitted to the ICU for treatment under the sepsis protocol for stated as expected to extend beyond 2 midnights. [facility] Medical History (Updated 01/27/25 @ 01:[address] Suresh Pettit, DO) History of pressure injury of skin Gastric reflux History of pain when walking Leg cramps Lives in assisted Hx of fracture of hip Wears glasses Wears dentures Post-menopausal Depression Alcohol use Substance abuse Open wound Uses wheelchair Arthritis High cholesterol Restless legs Back pain Smoker Asthma Shortness of breath on exertion History of edema Tobacco abuse Insulin dependent diabetes mellitus 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 GERD (gastroesophageal reflux disease) Anxiety Schizophrenia Hyperlipidemia Insomnia Neuralgia and neuritis Spondylosis Mild asthma Cerebral vascular disease Hypertension Home Medications ?Medication ?Instructions ?Recorded ?Last Taken ?Type ondansetron HCl 4 mg tablet 4 mg PO Q6H PRN PRN Nausea 03/08/19 Unknown History prazosin 1 mg capsule 1 mg PO QHS 03/08/19 03/07/19 20:00 History albuterol sulfate 2.5 mg/3 mL 2.5 mg inhalation Q4H PRN SOB 07/29/21 Unknown History (0.083 %) solution for nebulization apixaban 5 mg tablet (Eliquis) 5 mg PO BID 07/29/21 01/17/25 History lurasidone 80 mg tablet (Latuda) 80 mg PO DAILY 07/29/21 Unknown History naloxegol 25 mg tablet (Movantik) 25 mg PO DAILY 07/29/21 Unknown History acetaminophen 325 mg tablet 650 mg PO Q6H PRN PRN fever or pain 12/18/22 Unknown History benzonatate 100 mg capsule 100 mg PO Q8H PRN cough 12/18/22 Unknown History bisacodyl 5 mg tablet,delayed 5 mg PO Q8H PRN PRN constipation 12/18/22 Unknown History release (Dulcolax (bisacodyl)) cholecalciferol (vitamin D3) 125 125 mcg PO DAILY 12/18/22 Unknown History mcg (5,000 unit) capsule epinephrine 0.3 mg/0.3 mL 0.3 mg IM Q5-15M PRN anaphylaxis 12/18/22 Unknown History injection, auto-injector (EpiPen) flash glucose sensor (FreeStyle 12/18/22 Unknown History Cynthia 2 Sensor kit) fluticasone fur. 200 mcg-umeclid 1 inh inhalation DAILY 12/18/22 Unknown History 62.5 mcg-vilant 25 mcg inhalat.powder (Trelegy Ellipta) guaifenesin 100 mg/5 mL oral liquid 200 mg PO Q4H PRN cough 12/18/22 Unknown History ipratropium 0.5 mg-albuterol 3 mg 3 ml inhalation BID PRN shortness 12/18/22 Unknown History (2.5 mg base)/3 mL nebulization of breath soln ipratropium 20 mcg-albuterol 100 1 puff inhalation Q6H PRN 12/18/22 Unknown History mcg/actuation mist for inhalation shortness of breath or wheezing (Combivent Respimat) ipratropium bromide 21 mcg (0.03 2 spray intranasal BID 12/18/22 Unknown History %) nasal spray lisinopril 2.5 mg tablet 2.5 mg PO DAILY 12/18/22 01/20/25 History loratadine 10 mg tablet (Claritin) 10 mg PO DAILY 12/18/22 Unknown History montelukast 10 mg tablet 10 mg PO DAILY 12/18/22 Unknown History polyethylene glycol 3350 17 17 g PO DAILY PRN constipation 12/18/22 Unknown History gram/dose oral powder (Miralax) duloxetine 60 mg capsule,delayed 60 mg PO BID 01/16/23 Unknown History release (Cymbalta) pregabalin 100 mg capsule 100 mg PO BID 01/16/23 Unknown History Lactobacillus rhamnosus GG 10 1 cap PO BID 11/27/23 Unknown History billion cell capsule (Culturelle) insulin lispro 100 unit/mL 1 sliding scale dose subcut TID 11/27/23 Unknown History subcutaneous pen (Humalog KwikPen (U-100) Insulin) loperamide 2 mg capsule 4 mg PO BID PRN loose stool 11/27/23 Unknown History (Anti-Diarrheal (loperamide)) carboxymethylcellulose sodium 0.5 1 drp EACH EYE BID 01/30/24 Unknown History % eye drops (Refresh Tears) cyclosporine 0.05 % eye drops in a 1 drp EACH EYE Q12H 01/30/24 Unknown History dropperette (Restasis) atenolol 50 mg tablet 50 mg PO QDAY 11/20/24 01/20/25 History clonazepam 0.5 mg tablet 0.5 mg PO 1500 PRN anxiety 11/20/24 Unknown History insulin glargine U-300 conc 300 100 unit subcut QAM 11/20/24 Unknown History unit/mL (1.5 mL) subcutaneous pen (Toujeo SoloStar U-300 Insulin) insulin glargine U-300 conc 300 90 unit subcut QHS 11/20/24 Unknown History unit/mL (3 mL) subcutaneous pen (Toujeo Max U-300 SoloStar) insulin lispro 100 unit/mL 50 unit subcut DAILY 11/20/24 Unknown History subcutaneous pen (Humalog KwikPen (U-100) Insulin) insulin lispro 100 unit/mL 54 unit subcut DINNER 11/20/24 Unknown History subcutaneous pen (Humalog KwikPen (U-100) Insulin) magnesium hydroxide 400 mg/5 mL 15 ml PO BID PRN constipation 11/20/24 Unknown History oral suspension (Milk of Magnesia) tirzepatide 7.5 mg/0.5 mL 7.5 mg subcut FR 11/20/24 01/08/25 History subcutaneous pen injector (Mounjaro) atorvastatin 40 mg tablet 40 mg PO DAILY 01/20/25 Unknown History cranberry 500 mg capsule 500 mg PO DAILY 01/20/25 Unknown History famotidine 40 mg tablet 40 mg PO DAILY 01/20/25 Unknown History olanzapine 15 mg tablet 15 mg PO QHS 01/20/25 Unknown History oxycodone-acetaminophen 5 mg-325 1 tab PO Q6H PRN pain 5 days #20 01/25/25 Unknown Rx mg tablet (Percocet) tabs omeprazole 40 mg capsule,delayed 40 mg PO BID 01/26/25 Unknown History release oxybutynin chloride 5 mg tablet 5 mg PO DAILY 01/26/25 Unknown History Allergy/AdvReac Type Severity Reaction Status Date / Time apricot Allergy Unknown PT UNSURE Verified 01/26/25 23:17 OF REACTION BCG (Bacillus Allergy Unknown Other Verified 01/26/25 23:17 Calmette-Zohra) vacc bee venom protein (honey Allergy Unknown Other Verified 01/26/25 23:17 bee) (bee sting) corn Allergy Unknown Other Verified 01/26/25 23:17 Milk Containing Products Allergy Unknown Other Verified 01/26/25 23:17 (Dairy) peas Allergy Unknown Other Verified 01/26/25 23:17 tomato Allergy Unknown Other Verified 01/26/25 23:17 Iodinated Contrast Media Allergy Hives Verified 01/26/25 23:17 (Iodinated Contrast Media - IV Dye) amoxicillin trihydrate (From AdvReac Itching Verified 01/26/25 23:17 Augmentin) hydrocodone (From Vicodin) AdvReac Unknown Verified 01/26/25 23:17 potassium clavulanate (From AdvReac Itching Verified 01/26/25 23:17 Augmentin) shellfish derived AdvReac Itching Verified 01/26/25 23:17 Surgical History History of surgery History of History of tubal ligation History of hysterectomy History of cholecystectomy History of appendectomy S/P right rotator cuff repair Social History Smoking Status: Former smoker ROS ROS Narrative Full review of systems was not possible due to patient's altered mental status. Vital Signs Vital Signs Vital Signs: 01/26/25 23:17 01/26/25 23:24 01/27/25 00:20 Temperature 100 F H 100 F H 100.4 F H Temperature Source Oral Oral Core Pulse Rate 95 96 99 Respiratory Rate 18 18 16 Blood Pressure 167/68 H 167/68 H 170/68 H Blood Pressure Mean 101 101 102 Pulse Ox 97 97 93 Oxygen Delivery Method Nasal Cannula Nasal Cannula Nasal Cannula Oxygen Flow Rate (L/min) 3 3 3 Weight Weight: 228 lb 2.855 oz Body Mass Index (BMI) 40.4 Physical Exam Const no apparent distress Constitutional Narrative: Patient is morbidly obese and lethargic but arousable. Orientation / Consciousness: lethargic HEENT normocephalic, head/scalp atraumatic and hearing grossly normal bilaterally HEENT Narrative: Mucous membranes dry. Eyes PERRL and EOMs intact bilaterally Neck no lymphadenopathy and supple Resp normal respiratory effort, no retractions, no use of accessory muscles and clear to auscultation bilaterally Cardio regular rate and regular rhythm GI normal to inspection, nondistended, normoactive bowel sounds, soft to palpation, non-tender and non-distended GI Narrative: Morbidly obese. Extremity Extremity Narrative: Patient has swelling of the proximal Right leg with no signs of vascular compromise and good pulses throughout. Skin Skin Narrative: Patient has evidence of rash. Neuro Neuro Narrative: Patient is lethargic but arousable. Psych Psych Narrative: Patient is lethargic but arousable. Results Medical Records Data Attestation: I reviewed the patient's medical records Lab / Micro Data Attestation: I reviewed the patient's lab results. 01/26/25 23:38 01/26/25 23:38 Labs: Laboratory Results - last 24 hr 01/26/25 23:38: WBC 15.0 H, RBC 4.45, Hgb 13.8, Hct 41.1, MCV 92.4, MCH 31.0, MCHC 33.6, RDW Std Deviation 50.4 H, RDW Coeff of Gael 14.8 H, Plt Count 213, MPV 10.2, Immature Gran % (Auto) 1.800 H, Neut % (Auto) 68.0, Lymph % (Auto) 18.8 L, [place] % (Auto) 9.6, Eos % (Auto) 1.4, Baso % (Auto) 0.4, Absolute Neuts (auto) 10.2 H, Absolute Lymphs (auto) 2.82, Nucleated RBC % 0, Sodium 136, Potassium 5.4 H, Chloride 98, Carbon Dioxide 28.4, Anion Gap 10, BUN 21 H, Creatinine 1.19, Estim Creat Clear Calc 55.64, Est GFR (MDRD) Non-Af 51 L, BUN/Creatinine Ratio 17.9, Glucose 84, Lactic Acid 1.5, Calcium 10.1, Total Bilirubin 0.48, Direct Bilirubin 0.22, AST 111 H, ALT 122 H, Alkaline Phosphatase 84, Ammonia 26.3, Total Protein 6.7, Albumin 3.5, Globulin 3.2, Procalcitonin 0.22 H 01/26/25 23:50: Urine Color Yellow, Urine Clarity Cloudy, Urine pH 6.0, Ur Specific [place] 1.020, Urine Protein 100 H, Urine Glucose (UA) Normal, Urine Ketones Negative, Urine Occult Blood 150 H, Urine Nitrite Negative, Urine Bilirubin Negative, Urine Urobilinogen Normal, Ur Leukocyte Esterase 500 H, Urine RBC 0-5 SEEN, Urine WBC >100 SEEN, Ur Squamous Epith Cells 0 SEEN, Urine Bacteria 4+, Urine Mucus 0 SEEN Imaging Radiology Impression Chest X-Ray 01/26/25 00:05 IMPRESSION: Under aerated lungs. Reading Location: [place] [id number] Assessment & Plan Assessment/Plan (1) Sepsis: QUALIFIERS: Sepsis type: sepsis due to unspecified organism Sepsis acute organ dysfunction status: with acute organ dysfunction Severe sepsis acute organ dysfunction type: encephalopathy Severe sepsis shock status: without septic shock Qualified Code(s): A41.9 - Sepsis, unspecified organism; R65.20 - Severe sepsis without septic shock; G93.41 - Metabolic encephalopathy (2) Acute cystitis without hematuria: (3) Fever: QUALIFIERS: Fever type: unspecified Qualified Code(s): R50.9 - Fever, unspecified (4) Leukocytosis: QUALIFIERS: Leukocytosis type: bandemia Qualified Code(s): D72.825 - Bandemia (5) Toxic metabolic encephalopathy: (6) Chronic pain: QUALIFIERS: Chronic pain type: chronic pain syndrome Qualified Code(s): G89.4 - Chronic pain syndrome (7) Hyperkalemia: (8) Morbid obesity with BMI of 40.0-44.9, adult: (9) Schizophrenia: QUALIFIERS: Schizophrenia type: unspecified Qualified Code(s): F20.9 - Schizophrenia, unspecified PLAN: Plan 1. Fever of 100.4 ?F with Leukocytosis of 15K and Left-shift of 1.8% with a corresponding UA positive for Acute Cystitis; without hematuria in addition to mildly elevated procalcitonin of 0.22 ng/mL present on admission concerning for Sepsis - Admit to ICU for treatment under the sepsis protocol. Continue empiric ceftriaxone begun in ER and await culture and sensitivity data. Give acetaminophen DC as needed for pain or fever. 2. Toxic/Metabolic Encephalopathy with patient having chronic pain pump in place with recent addition of oxycodone-acetaminophen complicating #1 - Hold all additional opiates to allow sensorium to clear. Check TSH, B12, folate, PATRICIA and UDS to evaluate further potentially reversible causes of confusion in patient with history of substance and EtOH abuse. 3. Hyperkalemia of 5.4 mmol/L present on admission compounding #1 & #2 - Check ABG to evaluate for underlying acidosis. Give IV fluids and recheck potassium level in a.m. to ensure improvement. 4. Recent evaluation for fall with subsequent closed proximal Right tibia/fibular fracture with patient evaluated in the ER here on January 25, 2025 with DNR-CC; without intubation CODE STATUS compounding #1 & #2 - Continue supportive care. 5. Morbid (class III) obesity; with BMI of 40.4 this admission on tirzepatide - Weight will be recommended when sensorium clears. Check TSH. This complicates her case may hamper recovery. 6. History of CVA (2013) with Right hemiplegia and hemiparesis - Noted. 7. Schizophrenia; on lurasidone plus olanzapine - Restart these agents when patient can tolerate oral intake. 8. Bipolar disorder; on duloxetine twice daily and clonazepam as needed - We will restart home regimen once patient's sensorium clears and she can safely tolerate oral intake. 9. DM-2; of unknown control on insulin glargine 100 units subcu a.m. and 90 units SQ at bedtime plus insulin lispro 50 units subcu daily and 54 units subcu with dinner plus diabetic neuropathy; on pregabalin twice daily - Give lowest intensity SSI and check hemoglobin A1c to objectively assess quality of diabetic control. Hold long-acting insulin until patient is at baseline mental status. 10. Essential hypertension; on atenolol and lisinopril - Hold oral antihypertensives in light of #1. 11. Hyperlipidemia; on atorvastatin - Restart statin when patient is able to tolerate oral intake. 12. Former tobacco abuse; with subsequent asthma/COPD on fluticasone, montelukast and as needed albuterol/ipratropium - Stable with no evidence of acute flare at this time. Continue as needed nebulizers. 13. History of X; on apixaban twice daily - Restart apixaban when patient can safely tolerate oral intake for now we will transition to full-dose enoxaparin. 14. RLS - Stable. 15 Opiate-induced constipation on naloxegol plus as needed polyethylene glycol daily - Restart bowel regimen when patient can safely tolerate oral intake. 16. History of iron deficiency anemia - Stable with hemoglobin of 13.8 g/dL and MCV of 92.4 fL present on admission. 17. OAB; on oxybutynin - Restart oxybutynin when patient can safely tolerate oral intake. 18. GERD; on omeprazole twice daily plus famotidine daily - We will transition to IV pantoprazole while patient NPO. 19. OA; with spondylosis causing chronic back pain, history of Left hip fracture (2019) and history of pressure injury of the skin of the Right ankle - Stable. 20. DVT/GI prophylaxis - Give enoxaparin 100 mg SQ twice daily. Pantoprazole 40 mg IV daily. Total time: Approximately (but not less than) 75 minutes. Sepsis Attestation Sepsis Alert: Yes Sepsis Attestation: Agree w/Sepsis Date exam was performed: 01/27/25 Time exam was performed: 01:30 Possible Source of Sepsis: Implantable device and Genitourinary Sepsis Organ Dysfunction Criteria Present: New/Unexplained change in mental status Supportive Findings: In the ER she was noted to have a fever of 100.4 ?F with Leukocytosis of 15K and Left-shift of 1.8% with a corresponding UA positive for Acute Cystitis; without hematuria in addition to mildly elevated procalcitonin of 0.22 ng/mL present on admission concerning for Sepsis complicated by clinical evidence of Toxic/Metabolic Encephalopathy compounded by laboratory evidence of Hyperkalemia of 5.4 mmol/L present on admission in the setting of recent Fall with closed proximal Right tib-fib fracture and she was then admitted to the ICU for treatment under the sepsis protocol. Fluid Resuscitation Fluid resuscitation indicated?: Yes Fluid Resuscitation ordered: 30 ml/kg fluid bolus ordered Amount of fluid ordered: 3 Sepsis Note Date exam was performed: 01/27/25 Time exam was performed: 05:30 Sepsis Attestation: Sepsis re-evaluation was performed Response to fluids: Fluid responsive hypotension Charges/Coding Visit Charges Inpatient E&M: 49871 Init Hosp L3
--- NOTE | 2025-01-27 00:45 | EX.ED.DYSGE1 ---
HPI History of Present Illness Chief Complaint: Alt LOC Informant: EMS and SNF Narrative Narrative: Patient is a 64-year-old female from the assisted with history of previous CVA currently on Eliquis as well as debility who gets around with wheelchair and only stands to pivot transfer. She also has a history of insulin-dependent diabetes and hypertension as well as COPD. Patient was seen a few days ago secondary to mechanical fall and sustained a right tibia and fibula fracture. At that time the case was discussed with orthopedic surgery and they reported there is no need for emergent surgery for this and it would typically heal with just bracing and therefore recommend she be placed in a knee immobilizer and follow-up as an outpatient. jail reports that today the patient has had a decrease level of consciousness and they have noticed her breathing has diminished as well and her pulse ox has dropped down to as low as 75%. The assisted does report that they have been giving her Percocet secondary to the fracture but also that she has a pain pump that she uses secondary to her chronic pain and they are unsure if this change in mental status could be due to polypharmacy or secondary to a potential infection. Therefore the patient was sent to the hospital for evaluation EMS states that upon their arrival the patient is obtunded and her breathing is shallow and rate is slow around 6 and secondary to this they gave her Narcan. They do report that after receiving Narcan the patient's respirations improved to a value of 14/min and her depth of inspiration also improved as well as her mental status began to improve Based on her decreased level of consciousness/confusion the patient does not offer any further history [facility] Medical History (Updated 01/28/25 @ 04:[address] Rancho Orozco, DO) History of pressure injury of skin Gastric reflux History of pain when walking Leg cramps Lives in assisted Hx of fracture of hip Wears glasses Wears dentures Post-menopausal Depression Alcohol use Substance abuse Open wound Uses wheelchair Arthritis High cholesterol Restless legs Back pain Smoker Asthma Shortness of breath on exertion History of edema Tobacco abuse Insulin dependent diabetes mellitus 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 GERD (gastroesophageal reflux disease) Anxiety Schizophrenia Hyperlipidemia Insomnia Neuralgia and neuritis Spondylosis Mild asthma Cerebral vascular disease Hypertension Home Medications ?Medication ?Instructions ?Recorded ?Last Taken ?Type ondansetron HCl 4 mg tablet 4 mg PO Q6H PRN PRN Nausea 03/08/19 Unknown History prazosin 1 mg capsule 1 mg PO QHS 03/08/19 03/07/19 20:00 History albuterol sulfate 2.5 mg/3 mL 2.5 mg inhalation Q4H PRN SOB 07/29/21 Unknown History (0.083 %) solution for nebulization apixaban 5 mg tablet (Eliquis) 5 mg PO BID 07/29/21 01/17/25 History lurasidone 80 mg tablet (Latuda) 80 mg PO DAILY 07/29/21 Unknown History naloxegol 25 mg tablet (Movantik) 25 mg PO DAILY 07/29/21 Unknown History acetaminophen 325 mg tablet 650 mg PO Q6H PRN PRN fever or pain 12/18/22 Unknown History benzonatate 100 mg capsule 100 mg PO Q8H PRN cough 12/18/22 Unknown History bisacodyl 5 mg tablet,delayed 5 mg PO Q8H PRN PRN constipation 12/18/22 Unknown History release (Dulcolax (bisacodyl)) cholecalciferol (vitamin D3) 125 125 mcg PO DAILY 12/18/22 Unknown History mcg (5,000 unit) capsule epinephrine 0.3 mg/0.3 mL 0.3 mg IM Q5-15M PRN anaphylaxis 12/18/22 Unknown History injection, auto-injector (EpiPen) flash glucose sensor (FreeStyle 12/18/22 Unknown History Cynthia 2 Sensor kit) fluticasone fur. 200 mcg-umeclid 1 inh inhalation DAILY 12/18/22 Unknown History 62.5 mcg-vilant 25 mcg inhalat.powder (Trelegy Ellipta) guaifenesin 100 mg/5 mL oral liquid 200 mg PO Q4H PRN cough 12/18/22 Unknown History ipratropium 0.5 mg-albuterol 3 mg 3 ml inhalation BID PRN shortness 12/18/22 Unknown History (2.5 mg base)/3 mL nebulization of breath soln ipratropium 20 mcg-albuterol 100 1 puff inhalation Q6H PRN 12/18/22 Unknown History mcg/actuation mist for inhalation shortness of breath or wheezing (Combivent Respimat) ipratropium bromide 21 mcg (0.03 2 spray intranasal BID 12/18/22 Unknown History %) nasal spray lisinopril 2.5 mg tablet 2.5 mg PO DAILY 12/18/22 01/20/25 History loratadine 10 mg tablet (Claritin) 10 mg PO DAILY 12/18/22 Unknown History montelukast 10 mg tablet 10 mg PO DAILY 12/18/22 Unknown History polyethylene glycol 3350 17 17 g PO DAILY PRN constipation 12/18/22 Unknown History gram/dose oral powder (Miralax) duloxetine 60 mg capsule,delayed 60 mg PO BID 01/16/23 Unknown History release (Cymbalta) pregabalin 100 mg capsule 100 mg PO BID 01/16/23 Unknown History Lactobacillus rhamnosus GG 10 1 cap PO BID 11/27/23 Unknown History billion cell capsule (Culturelle) insulin lispro 100 unit/mL 1 sliding scale dose subcut TID 11/27/23 Unknown History subcutaneous pen (Humalog KwikPen (U-100) Insulin) loperamide 2 mg capsule 4 mg PO BID PRN loose stool 11/27/23 Unknown History (Anti-Diarrheal (loperamide)) carboxymethylcellulose sodium 0.5 1 drp EACH EYE BID 01/30/24 Unknown History % eye drops (Refresh Tears) cyclosporine 0.05 % eye drops in a 1 drp EACH EYE Q12H 01/30/24 Unknown History dropperette (Restasis) atenolol 50 mg tablet 50 mg PO QDAY 11/20/24 01/20/25 History clonazepam 0.5 mg tablet 0.5 mg PO 1500 PRN anxiety 11/20/24 Unknown History insulin glargine U-300 conc 300 100 unit subcut QAM 11/20/24 Unknown History unit/mL (1.5 mL) subcutaneous pen (Toujeo SoloStar U-300 Insulin) insulin glargine U-300 conc 300 90 unit subcut QHS 11/20/24 Unknown History unit/mL (3 mL) subcutaneous pen (Toujeo Max U-300 SoloStar) insulin lispro 100 unit/mL 50 unit subcut DAILY 11/20/24 Unknown History subcutaneous pen (Humalog KwikPen (U-100) Insulin) insulin lispro 100 unit/mL 54 unit subcut DINNER 11/20/24 Unknown History subcutaneous pen (Humalog KwikPen (U-100) Insulin) magnesium hydroxide 400 mg/5 mL 15 ml PO BID PRN constipation 11/20/24 Unknown History oral suspension (Milk of Magnesia) tirzepatide 7.5 mg/0.5 mL 7.5 mg subcut FR 11/20/24 01/08/25 History subcutaneous pen injector (Mounjaro) atorvastatin 40 mg tablet 40 mg PO DAILY 01/20/25 Unknown History cranberry 500 mg capsule 500 mg PO DAILY 01/20/25 Unknown History famotidine 40 mg tablet 40 mg PO DAILY 01/20/25 Unknown History olanzapine 15 mg tablet 15 mg PO QHS 01/20/25 Unknown History oxycodone-acetaminophen 5 mg-325 1 tab PO Q6H PRN pain 5 days #20 01/25/25 Unknown Rx mg tablet (Percocet) tabs omeprazole 40 mg capsule,delayed 40 mg PO BID 01/26/25 Unknown History release oxybutynin chloride 5 mg tablet 5 mg PO DAILY 01/26/25 Unknown History Allergy/AdvReac Type Severity Reaction Status Date / Time apricot Allergy Unknown PT UNSURE Verified 01/26/25 23:17 OF REACTION BCG (Bacillus Allergy Unknown Other Verified 01/26/25 23:17 Calmette-Zohra) vacc bee venom protein (honey Allergy Unknown Other Verified 01/26/25 23:17 bee) (bee sting) corn Allergy Unknown Other Verified 01/26/25 23:17 Milk Containing Products Allergy Unknown Other Verified 01/26/25 23:17 (Dairy) peas Allergy Unknown Other Verified 01/26/25 23:17 tomato Allergy Unknown Other Verified 01/26/25 23:17 Iodinated Contrast Media Allergy Hives Verified 01/26/25 23:17 (Iodinated Contrast Media - IV Dye) amoxicillin trihydrate (From AdvReac Itching Verified 01/26/25 23:17 Augmentin) hydrocodone (From Vicodin) AdvReac Unknown Verified 01/26/25 23:17 potassium clavulanate (From AdvReac Itching Verified 01/26/25 23:17 Augmentin) shellfish derived AdvReac Itching Verified 01/26/25 23:17 Surgical History History of surgery History of History of tubal ligation History of hysterectomy History of cholecystectomy History of appendectomy S/P right rotator cuff repair Social History Smoking Status: Former smoker ROS ROS ED ROS Narrative Unable to obtain review of systems secondary to patient's mental status Review of Systems ROS Unobtainable: due to mental status EXAM Physical Exam Const Vital Signs: 01/26/25 23:17 01/26/25 23:24 01/27/25 00:20 Temperature 100 F H 100 F H 100.4 F H Temperature Source Oral Oral Core Pulse Rate 95 96 99 Respiratory Rate 18 18 16 Blood Pressure 167/68 H 167/68 H 170/68 H Blood Pressure Mean 101 101 102 Pulse Ox 97 97 93 Oxygen Delivery Method Nasal Cannula Nasal Cannula Nasal Cannula Oxygen Flow Rate (L/min) 3 3 3 01/27/25 00:58 01/27/25 01:00 Temperature 100.7 F H 100.7 F H Temperature Source Core Pulse Rate 95 90 Respiratory Rate 18 18 Blood Pressure 155/70 H 151/66 H Blood Pressure Mean 98 94 Pulse Ox 98 97 Oxygen Delivery Method Nasal Cannula Oxygen Flow Rate (L/min) 3 Positive well nourished, well developed and obese General Appearance ED: well developed Nutritional Appearance: obese HEENT HEENT Narrative: Normocephalic atraumatic No tongue or cheek biting to suggest seizure activity No tongue or lip swelling no oral lesions no airway edema or compromise No signs of infection noted in the posterior pharynx Eyes PERRL and EOMs intact bilaterally General Eye ED: Negative for scleral icterus Neck supple Neck Narrative: No nuchal rigidity or meningeal signs Resp Resp Narrative: Breath sounds are diminished throughout with faint wheezing rhonchi in the bilateral bases No nasal flaring or retractions tachypnea or accessory muscle use Cardio regular rate and regular rhythm Rate: other Other Details: Heart is regular rate and rhythm Radial and carotid pulses are equal and symmetric GI non-tender, non-distended and no masses GI Narrative: Abdomen is soft nontender nondistended with hypoactive bowel sounds No rigidity or pulsatile mass Auscultation: hypoactive bowel sounds Palpation: soft Extremity Extremity Narrative: Patient has swelling in the right lower leg/chopra region consistent with recent fracture; there is a large fracture blister present. However compartments are soft and compressible going against compartment syndrome. No overlying erythema or warmth to suggest cellulitis. No abscess formation. Neuro Neuro Narrative: Patient is obtunded but will awaken to voice as well as touch. When she is awake she answers questions appropriately but she does fall quickly back asleep There is no obvious focal neurologic deficit Sensorium / Orientation: lethargic Psych Mood & Affect: depressed Skin Skin Narrative: Fracture blister to the right anterior chopra as documented above but no secondary findings of infection such as erythema lymphangitic streaking or rash MDM MDM MDM Narrative Medical decision making narrative: Patient arrived to the ER with improvement in her mental status after receiving Narcan. There is concern that with now known history of pain pump and the Percocet prescribed for a recent fracture that her mental status changes is related to polypharmacy and inadvertent opioid overdose. However the patient does have a low-grade fever and there is concern that she is encephalopathic secondary to an infection such as pneumonia or UTI. Basic labs were obtained and showed leukocytosis at 15 with left shift as absolute neutrophil count is 10.2. Patient's procalcitonin is slightly elevated as well consistent with developing infection. Cath urine sample shows findings consistent with infection. Chest x-ray did not reveal any sign of underlying pneumonia and I did not feel the need for repeat head CT as she had one recently secondary to the fall that revealed no acute bleed or mass. At this time based on the patient's encephalopathy from the UTI and the fact that she has a secondary fracture as well as concern for polypharmacy/inadvertent opioid overdose she will need to be kept in the hospital or we can monitor her medications and treat the infection in order to ensure that her symptoms are improving. Secondary to this the case was discussed with the hospitalist who agrees to accept the patient for continued care History & Record Review Discussion w/independent historian: EMS personnel and Other (SNF facility) Additional record(s) reviewed:: Prior ED visit Lab Data Attestation: I reviewed the patient's lab results. Labs: Laboratory Results - last 24 hr 01/26/25 01/26/25 01/27/25 23:38 23:50 00:52 WBC 15.0 H RBC 4.45 Hgb 13.8 Hct 41.1 MCV 92.4 MCH 31.0 MCHC 33.6 RDW Std Deviation 50.4 H RDW Coeff of Gael 14.8 H Plt Count 213 MPV 10.2 Immature Gran % (Auto) 1.800 H Neut % (Auto) 68.0 Lymph % (Auto) 18.8 L Campbell % (Auto) 9.6 Eos % (Auto) 1.4 Baso % (Auto) 0.4 Absolute Neuts (auto) 10.2 H Absolute Lymphs (auto) 2.82 Nucleated RBC % 0 Sodium 136 Potassium 5.4 H Chloride 98 Carbon Dioxide 28.4 Anion Gap 10 BUN 21 H Creatinine 1.19 Estim Creat Clear Calc 55.64 Est GFR (MDRD) Non-Af 51 L BUN/Creatinine Ratio 17.9 Glucose 84 Lactic Acid 1.5 Calcium 10.1 Total Bilirubin 0.48 Direct Bilirubin 0.22 AST 111 H ALT 122 H Alkaline Phosphatase 84 Ammonia 26.3 Total Protein 6.7 Albumin 3.5 Globulin 3.2 Procalcitonin 0.22 H Urine Color Yellow Urine Clarity Cloudy Urine pH 6.0 Ur Specific [place] 1.020 Urine Protein 100 H Urine Glucose (UA) Normal Urine Ketones Negative Urine Occult Blood 150 H Urine Nitrite Negative Urine Bilirubin Negative Urine Urobilinogen Normal Ur Leukocyte Esterase 500 H Urine RBC 0-5 SEEN Urine WBC >100 SEEN Ur Squamous Epith Cells 0 SEEN Urine Bacteria 4+ Urine Mucus 0 SEEN Urine Opiates Screen PRESUMPTIVE POSITIVE U Buprenorphine Qual NEGATIVE Ur Oxycodone Screen PRESUMPTIVE POSITIVE Urine Methadone Screen NEGATIVE Urine Fentanyl Screen NEGATIVE Ur Barbiturates Screen NEGATIVE Ur Phencyclidine Scrn NEGATIVE Ur Amphetamines Screen NEGATIVE U Benzodiazepines Scrn NEGATIVE Urine Cocaine Screen NEGATIVE U Cannabinoids Screen NEGATIVE Ethyl Alcohol < 10.1 ABG Data ABG results: ABG 01/27/25 01:05 Specimen Type EUNICE Sample Site Not entered O2 % 3.0 VBG pH 7.35 VBG pO2 57 H VBG HCO3 31 H VBG Total CO2 32 VBG O2 Sat (Calc) 87 H VBG Base Excess 5 H POC Mix VBG pCO2 Pt Tmp 55.5 H O2 Delivery Device Cannula Radiography Diagnostic Testing: Clinical Impression(s) from Imaging Studies Chest X-Ray 01/26/25 00:05 IMPRESSION: Under aerated lungs. Reading Location: [place] [id number] Chest x-ray as interpreted by the emergency medicine physician reveals no acute infiltrate or pneumothorax Management Discussion w/another healthcare provider: Hospitalist Discharge Plan Dx/Rx/DC Orders Clinical Impression: Acute metabolic encephalopathy, COPD (chronic obstructive pulmonary disease), Hyperlipidemia, Insulin dependent diabetes mellitus, UTI (urinary tract infection), Fracture of tibia and fibula Disposition Disposition: Acute Care Hospital [facility] Discharge Date/Time: 01/27/25 01:52
--- OUTSIDE RECORDS SUMMARY | 2025-01-27 01:06 | XMS RPT_ITS | CCD ---
Author Organization [facility] Care Team Providers Care Carpenter Supervisor Name Role Phone Ebonie Sandra N Unavailable [...] Lana Arrieta MD Primary Care Provider [phone] Chilango Laughlin Attending [...] Arrieta MD, Lana Vargas Primary Care Provider ISMAEL SOARES, MARIAH DANIELS Primary Care Physician Becky SOARES, Dr. Sun Attending Provider Dr. Dino Pena MD Emergency Provider Ismael SOARES, Dr. Mariah Daniels Primary Care [facility] er Dr. Gregorio Cochran DO Emergency Provider MAULIK العلي DO Attending MARIAH East MD Primary Care Unavail able REFERRING, PHY WO ID Attending DR BIANCA Ansari MD Primary Care Rich Atkinson MD, Dr. Mariah Daniels Primary Care [facility] er Dr. Gregorio Cochran DO Attending Provider [phone] Ismael SOARES, Dr. Mariah Daniels Referring Provider Gianna Mi Attending Provider [phone] Rahsaan Attending Provider Friend , Dr. Monroe Other Provider [phone] Gudla, Bianca Primary Care Unavailable Gudla, Bianca [...] Drug Allergy 5 PT UNSURE OF REACTION [facility] Repository (20 sources) lactose; Translations: [LACTOSE] Drug Allergy 0 [facility] Repository (20 sources) levoFLOXacin; Translations: [LEVOFLOXACIN] Drug Allergy 5 Intolerance [facility] Repository (20 sources) morphine; Translations: [MORPHINE] Drug Allergy 4 Itching [facility] Repository (20 sources) NSAIDs; Translations: [NSAIDS (NON-STEROIDAL ANTI-INFLAMMATO RY DRUG)] Propensity to adverse reactions to drug (disorder) 7 GI Upset [facility] Repository (20 sources) oxyCODONE; Translations: [OXYCODONE] Drug Allergy 8 Intolerance [facility] Repository (20 sources) Phenothiazine; Translations: [PHENOTHIAZINES ] Propensity to adverse reactions to drug (disorder) 4 [facility] Repository (20 sources) predniSONE; Translations: [PREDNISONE] Drug Allergy 5 Unknown [facility] Repository (20 sources) promethazine; Translations: [PROMETHAZINE HCL] Drug Allergy 7 Itching [facility] Repository (20 sources) Quinolones (Antibiotic); Translations: [QUINOLONES] Propensity to adverse reactions to drug (disorder) 4 [facility] Repository (20 sources) magda leaf allergenic extract; Translations: [MAGDA] Drug Allergy 5 [facility] Repository (20 sources) sulindac; Translations: [SULINDAC] Drug Allergy 5 Mental Status Change [facility] Repository (20 sources) traMADol; Translations: [TRAMADOL] Drug Allergy 5 Itching [facility] Repository (3 sources) OTHER; Translations: [OTHER] Propensity to adverse reactions (disorder) 5 AOF [facility] Repository (20 sources) OPIOIDS - MORPHINE ANALOGUES; Translations: [OPIOIDS - MORPHINE ANALOGUES] Propensity to adverse reactions to drug (disorder) 4 [facility] Repository (20 sources) CLEANING SUPPLIES [Other] Propensity to adverse reactions 5 [facility] Work Phone: (20 sources) IVP CONTRAST [Other] Propensity to adverse reactions 5 Intolerance [facility] Work Phone: (7 sources) Bee/Wasp/Ant venom Allergy to substance Anaphylaxis (disorder) [place] (11 sources) corn extract; Translations: [corn] Drug Allergy 5 Eruption of skin (disorder) [place] (7 sources) HYDROmorphone; Translations: [hydromorphone] Drug Allergy [place] (7 sources) Promethazine; Translations: [promethazine] Drug Allergy [place] (7 sources) Purified Protein Derivative of Tuberculin; Translations: [tuberculin purified protein derivative] Drug Allergy Lactose intolerance [place] (7 sources) Milk Products Food allergy Eruption of skin (disorder) [place] (7 sources) Tomatoes Food allergy [place] (7 sources) Apricots Food allergy Eruption of skin (disorder) [place] (11 sources) Peas; Translations: [peas] Food allergy 5 Eruption of skin (disorder) [place] (17 sources) Amoxicillin; Translations: [amoxicillin trihydrate] Drug Allergy 9 [facility] (16 sources) HYDROcodone Drug Allergy 9 Unknown [facility] (17 sources) Shellfish; Translations: [shellfish derived] Propensity to adverse reactions 9 [facility] (17 sources) Iodinated Contrast Media; Translations: [Iodinated Contrast Media] Allergy to substance 9 Hives [facility] (17 sources) potassium clavulanate; Translations: [potassium clavulanate] Propensity to adverse reactions 9 [facility] (3 sources) tomato allergenic extract Drug Allergy 5 Other [facility] (4 sources) BCG (Bacillus Calmette-Zohra ) vacc; Translations: [BCG (Bacillus Calmette-Zohra ) vacc] Allergy to substance 4 Other [facility] (3 sources) bee venom protein (honey bee) Allergy to substance 5 Other [facility] (3 sources) Milk Containing Products (Dairy) Allergy to substance 5 Other [facility] (1 source) HYDROcodone Drug Allergy 5 [facility] Repository (1 source) tomato allergenic extract Drug Allergy 5 [facility] Repository (1 source) Milk Containing Products (Dairy) Drug allergy (disorder) 5 [facility] Repository (1 source) bee venom protein (honey bee) Drug allergy (disorder) 5 [facility] Repository Medications Current Medications Medication Drug [...] Start: 03-23-2016 PERCOCET 5-325 MG TABS OXYCODONE-ACETAMINOPHEN [id number] Karthikeyan Hall Start: 03-23-2016 PERCOCET 5-325 MG TABS OXYCODONE-ACETAMINOPHEN [id number] Karthikeyan Rubén Rafael albuterol 0.83 mg/ml inhalation [...] 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 [id number] 0.3 ml EPINEPHrine 1 mg/ml auto-injector (20 [...] Comment on above: Take 1 tablet by [facility] daily at bedtime. Per psychiatry. esomeprazole 40 mg delayed release oral capsule (6 sources) Proton Pump Inhibitor Start: End: take 1 capsule by mouth once daily before breakfast esomeprazole 40 mg capsule Indications: Esophageal reflux , Chest pain, unspecified Take 1 capsule by mouth daily before breakfast. Selena's Docudose. 30 capsule 11 11/11/2013 01/31/2022 Discontinued Comment on above: Take 1 capsule by mo [facility] daily before breakfast. Selena's Docudose. famotidine [...] INH INHALATION DAILY December 18, 2022 12:00am hpinyqtcykq-gjvyzainp-fnusfl er (TRELEGY ELLIPTA) 200-62.5-25 mcg inhalation powder (12 sources) take 1 puff(s) by inhalation once daily nxglcarcqyv-rpltikoak-absjxntg (TRELEGY ELLIPTA) 200-62.5-25 mcg inhalation powder Inhale 1 Puff as instructed once daily. Active take 1 puff(s) by in halation once daily eidhcvajure-vnsetnpun-haumiyud (TRELEGY ELLIPTA) 200-62.5-25 mcg inhalation powder Inhale [...] FLEXTO UCH 100 UNIT/ML SOPN INSULIN DEGLUDEC [id number] Karthikeyan Hall Start: 03-23-2016 TRESIBA FLEXTO UCH 100 UNIT/ML SOPN INSULIN DEGLUDEC [id number] Karthikeyan Hall 1.5 ml insulin glargine 300 [...] 2023 12:00am November 20, 2024 3:10pm Insulin [place], Disposable, (PEN NEEDLE) 29 x 1/2 ndle [...] spray(s) nasa l route twice daily Ipratropium [place] Active 2 SPRAY INTRANASAL TWICE A DAY [...] Maximum 6 puffs daily. lactobacillus rhamnosus gg [id number] unt oral capsule (3 sources) Start: take [...] IMODIUM A-D 1 MG/7.5ML LIQD LOPERAMIDE HCL [id number] Karthikeyan Hall Start: 03-23-2016 IMODIUM A-D 1 MG/7.5ML LIQD LOPERAMIDE HCL [id number] Karthikeyan Hall Comment on above: Take 1 [...] 400 (240 Mg) MG TABS MAGNESIUM OXIDE [id number] Karthikeyan Hall Start: 03-23-2016 MAGNESIUM OXID E 400 (240 Mg) MG TABS MAGNESIUM OXIDE [id number] Karthikeyan Hall Comment on above: Take 1 [...] 1 tablet by jessica th once daily. Multivitamins-[place] als-Lutein (CENTRUM SILVER) tab (20 sources) Start: [...] th daily at bedtime. polyethylene glycol 3350 56727 mg powder for oral solution (20 sources) [...] neuropathy Start: 03-23-[address] [facility] twice daily Pregabalin 100 mg capsule Active 100 mg PO TWICE A DAY January 16, 2023 12:00am Comment on above: Take [address] [facility] twice daily. raNITIdine 150 mg oral [...] TEARS 0.1-0.3 % SOLN ARTIFICIAL TEAR SOLUTION [id number] Karthikeyan Hall ARTIFICIAL TEAR SOLUTION (1 source) Start: 03-23-2016 ARTIFICIAL TEARS 0.1-0.3 % SOLN ARTIFICIAL TEAR SOLUTION 08066175319 Karthikeyan Hall aspirin 81 mg chewable tablet (15 sources) Nonsteroidal Anti-inflammatory Drug Start: 03-23-2016 ASPIRIN 81 MG CHEW ASPIRIN 72803102602 Karthikeyan Hall Start: 11-03-2013 End: 01-31-2022 take 1 tablet by mouth once daily aspirin, enteric coated (ADULT ASPIRIN EC LOW STRENGTH) 81 mg EC tablet Indications: Type II or unspecified type diabetes mellitus without mention of complication, uncontrolled Take 1 tablet by mouth once daily. 30 tablet 11 11/03/2013 01/31/2022 Discontinued Comment on above: Take 1 tablet by ejssica once daily. baclofen 5 mg oral tablet [...] MAXIMUM STRENGTH 525 MG/15ML SUSP BISMUTH SUBSALICYLATE [id number] Karthikeyan [place] Rafael Start: 03-23-2016 BISMATROL MAXI MUM STRENGTH 525 MG/15ML SUSP BISMUTH SUBSALICYLATE 06908748619 Karthikeyan Hall Bupivacaine (1 source) Amide Local [...] Start: 03-23-2016 TRULICITY 1.5 MG/0.5ML SOPN DULAGLUTIDE 97772895716 Karthikeyan Hall Start: 03-23-2016 TRULICITY 1.5 MG/0.5ML SOPN DULAGLUTIDE 58882135428 Karthikeyan Hall dyclonine hydrochloride 2 mg oral [...] Start: 11-22-2020 take 1 dose nasal ro [place] once daily in the morning Flonase 50 mcg/inh nasal spray Dose = 2 spray(s), Nostril, each, qAM, 0 Refill(s) Start Date: 02/14/21 Status: Ordered Repeat number: 1 Start: 02-01-2017 take 1 spray(s) nasa l route once daily fluticasone (FLONASE) 50 mcg/actuation nasal spray Use 1 [place] in each nostril once daily. . 0 02/01/2017 Active Start: 03-23-2016 FLONASE ALLERG Y RELIEF 50 MCG/ACT SUSP FLUTICASONE PROPIONATE 12843638665 Karthikeyan Hall Start: 03-23-2016 FLONASE ALLERG Y RELIEF 50 MCG/ACT SUSP FLUTICASONE PROPIONATE 75189925595 Karthikeyan Hall Start: 09-01-2014 take 2 spray(s) nasa l route once daily fluticasone (FLONASE) 50 mcg/actuation nasal spray Indications: Rhinitis Use 2 Sprays in each nostril once daily. 1 Bottle 11 09/01/2014 Active Comment on above: Use 2 Sprays in each nostril once daily. Use 1 [place] in each nostril once daily. . formoterol [...] 03-23-2016 LACTAID 3000 U NIT TABS LACTASE 30092551076 Karthikeyan Hall LINACLOTIDE (9 sources) Guanylate Cyclase-C Agonist Start: 03-23-2016 LINZESS 145 MCG CAPS LINACLOTIDE 03733971698 Karthikeyan Hall Start: 03-23-2016 LINZESS 145 MC G CAPS LINACLOTIDE 36904237507 Karthikeyan Hall LORazepam 1 mg oral tablet [...] Start: 03-23-2016 SEROQUEL XR 30 0 MG [id number]-NTP QUETIAPINE FUMARATE 39322563325 Karthikeyan Montana Rafael Start: 03-23-2016 SEROQUEL XR 20 0 MG OM15D-HRZ QUETIAPINE FUMARATE 53460037852 Karthikeyan Montana Rafael Start: 03-23-2016 SEROQUEL XR 20 0 MG JC04N-FWP QUETIAPINE FUMARATE 69266897692 Karthikeyan Montana Rafael Start: 03-23-2016 SEROQUEL XR 30 0 MG DP63R-ALI QUETIAPINE FUMARATE 60188070441 Karthikeyan Montana Rafael 0.25 mg, 0.5 mg [...] TRAZODONE HCL 150 MG TABS TRAZODONE HCL 18678267929 Karthikeyan Hall vortioxetine 20 mg oral tablet (9 sources) Start: 6 TRINTELLIX 20 MG TABS VORTIOXETINE R 22253203220 Karthikeyan Hall zolpidem tartrate 10 mg oral [...] aftercare (3 sources) Drug therapy finding; Translations: [alf (current) use of anticoagulants] 09-27-2024 Episodic Other [...] 01-21-2025 FINGERSTICK GLU 279 mg/dL High 74-106 [facility] Comment on above: Result Comment: PAO MARS OF PATIENT CARE PER NURSING PROTOCOL Performed By: #### L [id number] #### [facility] Laboratory [address] [place], [address] EGD Reporton 01-21-2025 EGD Report [facility] Medical Records Department [address] [place] [address] EGD Report MR#: [id number] Acct: [id number] Name: JULIANA MERIDA Rep #: [id number] : 1960 64 From: Fer Simmons DO PCP: Mariah Atkinson MD Status:REG [facility] Patient Name: Juliana Merida Procedure Date: 01/21/2025 [...] pathology results. Procedure Code(s): --- Professional --- 24765, Small intestinal endoscopy, enteroscopy beyond second portion of duodenum, not including ileum; with biopsy, single or multiple CPT copyright 2021 [employer]. All rights reserved. The codes documented in this report are preliminary and upon fur buyer review may be revised to meet current compliance requirements. Fer Simmons DO 01/21/2025 9:17:41 AM This report has been signed electronically. Number of Addenda: 0 Note Initiated On: 01/21/2025 8:38 AM 01/21/25916 Date (more content not included)... Normal [facility] Glucose measurement at [facility] deOrdered By: Fer Simmons on 01-21-2025 Glucose [Mass/Vol] 279 mg/dL High 74-106 [facility] Comment on above: MANAGEMENT OF PATIEN T CARE PER NURSING PROTOCOL MR/POSTOP.Caro 01-21-2025 MR/POSTOP.[facility] Medical Records Department [address] [place] [address] Anesthesia Postop Eval I 01/21/25911 MR#: [id number] Acct: [id number] Name: JULIANA MERIDA Rep #: [id number] : 1960 64 From: Yosef Camp PCP: Mariah Atkinson MD Status:REG SDC Y Race: C Location: [place] [address] Anesthesia: Postop Eval I Current Vital Signs [...] Camp Cosigner Signature: Date CC: Signed Normal [facility] MR/[id number] 01-21-2025 MR/POSTOPAN2 [facility] Medical Records Department [address] [place] [address] Anesthesia Postop Eval II 01/21/2549 MR#: [id number] Acct: [id number] Name: JULIANA MERIDA Rep #: [id number] : 1960 64 From: Kimmie Serna CRNA PCP: Mariah Atkinson MD Status:REG [facility] [place] Race: C Location: [place] [address] Anesthesia Postop Eval I Sum Postop Eval [...] Date Kimmie Nolasco Signature: Date CC: Signed [facility] 01-20-2025 CNPN Telephone (RHBATH) -------- JULIANA MERIDA ([id number]) 1960 F Date Time Provider Department 01/20/25 [facility] During your visit today, we recorded [...] hours as needed for cough. 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 - insulin glargine,hum.rec.anlog (TOUJEO MAX U-300 SOLOSTAR SUBCUTANEOUS) Inject subcutaneously as directed. - qskihrnaedf-ecuhkxfvb-aq lanter (TRELEGY ELLIPTA) 200-62.5-25 mcg inhalation powder [...] (FLONASE) 50 mcg/actuation nasal spray Use 1 [place] in each nostril once daily. . - pregabalin (LYRICA) 100 mg capsule Take 1 capsule by mouth (more content not included)... Normal [facility] Gastroenterology Visit Repor ton 11-20-2024 Gastroenterology Visit Report [facility] Gastroenterology [address] [place] [address] OFFICE VISIT Date of Service: 11/20/24 MR#: [id number] Acct: [id number] Name: JULIANA MERIDA Rep #: [id number] : 1960 Provider: KALEIGH sim Age/Sex: 64/F Location: [facility] Status: Signed Intake Vital Signs 09/27/24 01:36 [...] Q12H 01/12 (more content not included)... Normal [facility] Abdomen/Pelvis without Conto n 09-27-2024 Abdomen/Pelvis without Cont [facility] Imaging Services [address] [place], [place] [address] Abdomen/Pelvis without Cont MR#: [id number] Acct: [id number] Name: JULIANA MERIDA Rep #: [id number] : 1960 F 63 From: Jaleel Loaiza MD PCP: Mariah Atkinson MD Status: REG ER Study: Abdomen/Pelvis without Cont Date of Exam: 09/12 01/06 Exam# [id number] Ordering Dr: Gregorio Cochran DO PROCEDURE: ABDOMEN/PELVIS [...] abdominal and pelvic viscera. There is now vvgi-tyzhcrq-mknr-right mild basilar patchy ill-defined ground-glass opacities of [...] dilation or free air. Status post appendectomy. [place] artifact from spinal stimulator device. Aortoiliac atherosclerotic calcification. No abdominal aortic aneurysm. The bladder appears within limits. No free fluid seen. Status post hysterectomy. The ovaries appear within limits on noncontrast imaging. [place] artifact from left femoral gamma nail. Small fat containing left inguinal hernia without stranding again noted. CT/Abdomen/Pelvis without Cont IMPRESSION: There is now ysmx-cdndgcp-dqrx-right mild basilar patchy ill-defined ground-glass opacities of [...] the liver. Status post cholecystectomy. Reading Location: [facility] CC: Mariah Atkinson MD; Dr. Gregorio Cochran DO Environmental Health Officer: Signed Normal [facility] Absolute lymphocyte countOrd ered By: Gregorio Cochran on 09-27-2024 Lymphocytes Auto (Unsp spec) [#/Vol] 2.73 10*3/uL 0.83-4.51 [facility] Absolute neutrophil countOrd ered By: Gregorio Cochran on 09-27-2024 Neutrophils (Bld) [#/Vol] 6.8 10*3/uL 2.0-7.7 [facility] Anion gap in Serum or Plasma Ordered By: Gregorio Cochran on 09-27-2024 Anion gap [Moles/Vol] 10 mmol/L 5-15 [facility] Automated lymphocyte count a s percentage of total leukocytesOrdered By: Gregorio Cochran on 09-27-2024 Lymphocytes/100 WBC Auto (Unsp spec) 25.9 % 19- [facility] BUN/creatinine ratioOrdered By: Gregorio Cochran on 09-27-2024 Urea nitrogen/Creatinine [Mass ratio] 12.7 mg/mg - [facility] Basic Metabolic Profile (BMP )on 09-27-2024 BUN/CRE 12.7 RATIO Normal - [facility] Comment on above: Performed By: #### L 400.0001 #### [facility] [address] [place], [address] Calcium [Mass/Vol] 9.5 mg/dL Normal 7.6-11.0 [facility] Comment on above: Performed By: #### L 400.0001 #### [facility] [address] [place], [address] Chloride [Moles/Vol] 99 mmol/L Normal 98-108 [facility] Comment on above: Performed By: #### L 400.0001 #### [facility] [address] [place], [address] CO2 [Moles/Vol] 27.1 mmol/L Normal 21.0-32.0 [facility] Comment on above: Performed By: #### L 400.0001 #### [facility] [address] [place], [address] Creatinine [Mass/Vol] 1.37 mg/dL High 0.70-1.20 [facility] Comment on above: Performed By: #### L 400.0001 #### [facility] [address] [place], [address] GAP 10 Normal 5-15 [facility] Comment on above: Performed By: #### L 400.0001 #### [facility] [address] [place], [address] GFR/1.73 sq M.predicted among non-blacks MDRD (S/P/Bld) [Vol rate/Area] 44 mL/min/{1.73_m2} Low >60 [facility] Comment on above: Result Comment: mL/m in/1.73m2 CKD-EPI Creatinine Equation (2020) Performed By: #### L [id number] #### [facility] [address] [place], [address] Glucose [Mass/Vol] 254 mg/dL High 70-99 [facility] Comment on above: Performed By: #### L [id number] #### [facility] [address] [place], [address] Potassium [Moles/Vol] 4.0 mmol/L Normal 3.3-5.1 [facility] Comment on above: Performed By: #### L [id number] #### [facility] [address] [place], [address] Sodium [Moles/Vol] 136 mmol/L Normal 133-145 [facility] Comment on above: Performed By: #### L [id number] #### [facility] [address] [place], [address] Urea nitrogen [Mass/Vol] 17 mg/dL Normal 4-19 [facility] Comment on above: Performed By: #### L [id number] #### [facility] [address] [place], [address] Basophil percentageOrdered B y: Gregorio Cochran on 09-27-2024 Basophils/100 WBC (Bld) 0.5 % 0-1 [facility] Bilirubin Test strip Ql (U)O rdered By: Gregorio Cochran on 09-27-2024 Bilirubin Ql (U) Negative Negative [facility] CBC W/Diff, Automatedon - Absolute Lymph 2.73 X10 3/uL Normal 0.83-4.51 [facility] Comment on above: Performed By: #### L [id number] #### [facility] [address] [place], [address] Absolute Neut 6.8 X10 3/uL Normal 2.0-7.7 [facility] Comment on above: Performed By: #### L [id number] #### [facility] [address] [place], [address] Basophils/100 WBC (Bld) 0.5 % Normal 0-1 [facility] Comment on above: Performed By: #### L [id number] #### [facility] [address] [place], [address] Eosinophils/100 WBC (Bld) 0.8 % Normal 0-5 [facility] Comment on above: Performed By: #### L [id number] #### [facility] [address] [place], [address] Erythrocyte distribution width (RBC) [Ratio] 13.6 % Normal 11.6-14.6 [facility] Comment on above: Performed By: #### L [id number] #### [facility] [address] [place], [address] Hematocrit (Bld) [Volume fraction] 43.9 % Normal 37-47 [facility] Comment on above: Performed By: #### L 400.0001 #### [facility] [address] [place], [address] Hemoglobin (Bld) [Mass/Vol] 14.2 g/dL Normal 12.0-15.0 [facility] Comment on above: Performed By: #### L [id number] #### [facility] [address] [place], [address] IG% 0.500 Normal 0.0-0.9 [facility] Comment on above: Result Comment: IG% - Immature Granulocytes (promyelocytes, myelocytes and metamyelocytes) > 1% indicates that a LEFT SHIFT is Present. Performed By: #### L [id number] #### [facility] [address] [place], [address] Lymphocytes/100 WBC (Bld) 25.9 % Normal 19-41 [facility] Comment on above: Performed By: #### L [id number] #### [facility] [address] [place], [address] MCH (RBC) [Entitic mass] 29.3 pg Normal 27.0-32.0 [facility] Comment on above: Performed By: #### L [id number] #### [facility] [address] [place], [address] MCHC (RBC) [Mass/Vol] 32.3 g/dL Normal 32-36 [facility] Comment on above: Performed By: #### L [id number] #### [facility] [address] [place], [address] MCV (RBC) [Entitic vol] 90.7 fL Normal 81-99 [facility] Comment on above: Performed By: #### L [id number] #### [facility] [address] [place], [address] Monocytes/100 WBC (Bld) 7.7 % Normal 0-10 [facility] Comment on above: Performed By: #### L [id number] #### [facility] [address] [place], [address] Neutrophils/100 WBC (Bld) 64.6 % Normal 47-70 [facility] Comment on above: Performed By: #### L [id number] #### [facility] [address] [place], [address] Nucleated RBC (Bld) [#/Vol] 0 10*3/uL Normal 0-5 [facility] Comment on above: Performed By: #### L 400.0001 #### [facility] [address] [place], [address] Platelet mean volume (Bld) [Entitic vol] 10.1 fL Normal 6.2-12.0 [facility] Comment on above: Performed By: #### L 400.0001 #### [facility] [address] [place], [address] Platelets (Bld) [#/Vol] 214 10*3/uL Normal 150-450 [facility] Comment on above: Performed By: #### L 400.0001 #### [facility] [address] [place], [address] RBC (Bld) [#/Vol] 4.84 10*6/uL Normal 4.2-5.4 [facility] Comment on above: Performed By: #### L 400.0001 #### [facility] [address] [place], [address] RDW SD 44.8 fl High 35.1-43.9 [facility] Comment on above: Performed By: #### L 400.0001 #### [facility] [address] [place], [address] WBC (Bld) [#/Vol] 10.5 10*3/uL Normal 4.4-11.0 [facility] Comment on above: Performed By: #### L 400.0001 #### [facility] [address] [place], [address] Carbon dioxide, total [Moles /volume] in Central venous bloodOrdered By: Gregorio Cochran on 09-27-2024 CO2 [Moles/Vol] 27.1 mmol/L 21.0-32.0 [facility] Chloride assayOrdered By: Miguel Cochran on 09-27-2024 Chloride [Moles/Vol] 99 mmol/L 98-108 [facility] Emergency Department Summary on 09-27-2024 Emergency Department Summary [facility] Medical Records Department [address] [place] [address] Emergency Department Summary 09/27/24 MR#: [id number] Acct: [id number] Name: JULIANA MERIDA YANELI Rep #: [id number] : 1960 63 From: Gregorio Cochran DO PCP: Mariah Atkinson MD Status:DEP ER Location: ED HPI History of Present Illness Chief Complaint: Flank Pain Informant: patient and EMS Narrative Narrative: 63-year-old female [facility] [...] hematuria PFSH PFSH Medical History Lives in jail Hx of fracture of hip Wears glasses [...] bisacodyl 10 mg rectal suppository 10 mg CO .Q24 PRN PRN constipati on 12/18/22 Unknown [...] 3 mg (more content not included)... Normal [facility] Eosinophil percentageOrdered By: Gregorio Cochran on 09-27-2024 Eosinophils/100 WBC (Bld) 0.8 % 0-5 [facility] Epithelial cells.squamous LM Ql (Urine sed)Ordered By: Gregorio Cochran on 09-27-2024 Epithelial cells.squamous LM.HPF (Urine sed) [#/Area] 0 /[HPF] 5-10 [facility] Erythrocyte distribution wid th ratioOrdered By: Gregorio Cochran on 09-27-2024 Erythrocyte distribution width (RBC) [Ratio] 13.6 % 11.6-14.6 [facility] Erythrocyte distribution wid th standard deviationOrdered By: Gregorio Cochran on 09-27-2024 Erythrocyte distribution width (RBC) [Entitic vol] 44.8 fL High 35.1-43.9 [facility] Erythrocyte distribution width (RBC) [Ratio] 44.8 fl High 35.1-43.9 [facility] GFR/1.73 sq M.predicted augustin g non-blacks MDRD (S/P/Bld) [Vol rate/Area]Ordered By: Gregorio Cochran on 09-27-2024 Estimated GFR (MDRD) Non-Af Amer 44 Low >60 [facility] Comment on above: mL/min/1.73m2 CKD-EP I Creatinine Equation (2020) Glomerular filtration rate ( GFR) estimation/1.73 sq m using serum, plasma, or whole bOrdered By: Gregorio Cochran on 09-27-2024 GFR/1.73 sq M.predicted among non-blacks MDRD (S/P/Bld) [Vol rate/Area] 44 mL/min/{1.73_m2} Low >60 [facility] Comment on above: mL/min/1.73m2 CKD-EP I Creatinine Equation (2020) Glucose Ql (U)Ordered By: Miguel Cochran on 09-27-2024 Urine Glucose (UA) Normal mg/dl Normal [facility] Hematocrit Auto (Bld) [Volum e fraction]Ordered By: Gregorio Cochran on 09-27-2024 Hematocrit (Bld) [Volume fraction] 43.9 % 37-47 [facility] Hemoglobin measurementOrdere d By: Gregorio Cochran on 09-27-2024 Hemoglobin (Bld) [Mass/Vol] 14.2 g/dL 12.0-15.0 [facility] Immature granulocytes/100 WB C Auto (Bld)Ordered By: Gregorio Cochran on 09-27-2024 Immature granulocytes/100 WBC (Bld) 0.500 % 0.0-0.9 [facility] Comment on above: IG% - Immature Granu locytes (promyelocytes, myelocytes and metamyelocytes) > 1% indicates that a LEFT SHIFT is Present. Ketones Test strip Ql (U)Ord ered By: Gregorio Cochran on 09-27-2024 Ketones Ql (U) Negative Negative [facility] Lymphocytes Auto (Unsp spec) [#/Vol]Ordered By: Gregorio Cochran on 09-27-2024 Lymphocytes (Bld) [#/Vol] 2.73 10*3/uL 0.83-4.51 [facility] Lymphocytes/100 WBC Auto (Un sp spec)Ordered By: Gregorio Cochran on 09-27-2024 Lymphocytes/100 WBC (Bld) 25.9 % 19-41 [facility] MCV (mean corpuscular volume ) determinationOrdered By: Gregorio Cochran on 09-27-2024 MCV (RBC) [Entitic vol] 90.7 fL 81-99 [facility] Mean corpuscular hemoglobin (MCH) determinationOrdered By: Gregorio Cochran on 09-27-2024 MCH (RBC) [Entitic mass] 29.3 pg 27.0-32.0 [facility] Mean corpuscular hemoglobin concentration (MCHC) determinationOrdered By: Gregorio Cochran on 09-27-2024 MCHC (RBC) [Mass/Vol] 32.3 g/dL 32-36 [facility] Mean platelet volume determi nationOrdered By: Gregorio Cochran on 09-27-2024 Platelet mean volume (Bld) [Entitic vol] 10.1 fL 6.2-12.0 [facility] Microscopic analysis of urin e for red blood cells (RBC)Ordered By: Gregorio Cochran on 09-27-2024 Microscopic analysis of urine for red blood cells (RBC) 0-5 SEEN /hpf 0-5 [facility] Urine RBC 0-5 SEEN /hpf 0-5 [facility] Monocyte percentageOrdered B y: Gregorio Cochran on 09-27-2024 Monocytes/100 WBC (Bld) 7.7 % 0-10 [facility] Mucus LM Ql (Urine sed)Order ed By: Gregorio Cochran on 09-27-2024 Mucus Ql (Urine sed) 0 SEEN /hpf [facility] Neutrophil percentageOrdered By: Gregorio Cochran on 09-27-2024 Neutrophils/100 WBC (Bld) 64.6 % 47-70 [facility] Nitrite Test strip Ql (U)Ord ered By: Gregorio Cochran on 09-27-2024 Nitrite Ql (U) Negative Negative [facility] Nucleated red blood cell per centageOrdered By: Gregorio Cochran on 09-27-2024 Nucleated RBC/100 WBC (Bld) [Ratio] 0 % 0-5 [facility] Platelet countOrdered By: Miguel Cochran on 09-27-2024 Platelets (Bld) [#/Vol] 214 10*3/uL 150-450 [facility] Potassium (Unsp spec) [Mass/ Vol]Ordered By: Gregorio Cochran on 09-27-2024 Potassium [Moles/Vol] 4.0 mmol/L 3.3-5.1 [facility] Potassium measurement (mass/ volume)Ordered By: Gregorio Cochran on 09-27-2024 Potassium (Unsp spec) [Mass/Vol] 4.0 mmol/L 3.3-5.1 [facility] Protein Test strip Ql (U)Ord ered By: Gregorio Cochran on 09-27-2024 Protein Ql (U) Negative Negative [facility] RBC Auto (Bld) [#/Vol]Ordere d By: Gregorio Cochran on 09-27-2024 RBC (Bld) [#/Vol] 4.84 10*6/uL 4.2-5.4 [facility] Serum creatinine measurement (mass/volume)Ordered By: Gregorio Cochran on 09-27-2024 Creatinine [Mass/Vol] 1.37 mg/dL High 0.70-1.20 [facility] Serum glucose measurement (m ass/volume)Ordered By: Gregorio Cochran on 09-27-2024 Glucose [Mass/Vol] 254 mg/dL High 70-99 [facility] Serum or plasma calcium fabi urement (mass/volume)Ordered By: Gregorio Cochran on 09-27-2024 Calcium [Mass/Vol] 9.5 mg/dL 7.6-11.0 [facility] Serum or plasma urea nitroge n measurement (mass/volume)Ordered By: Gregorio Cochran on 09-27-2024 Urea nitrogen [Mass/Vol] 17 mg/dL 4-19 [facility] Sodium levelOrdered By: Camron Cochran on 09-27-2024 Sodium [Moles/Vol] 136 mmol/L 133-145 [facility] Squamous epithelial cells de tection in urine sediment by light microscopyOrdered By: Gregorio Cochran on 09-27-2024 Epithelial cells.squamous LM Ql (Urine sed) 0-5 SEEN /hpf 5-10 [facility] Urinalysis, Completeon 09-27 BACTERIA 3+ /hpf Normal None Seen [facility] Comment on above: Order Comment: MASHA MCDONNELLOR TO SPECIFY Performed By: #### L [id number] #### [facility] [address] [place], [address] EPI,SQUAMOUS 0-5 SEEN Normal 5-10 [facility] Comment on above: Order Comment: MASHA CTOR TO SPECIFY Performed By: #### L [id number] #### [facility] [address] [place], [address] RBC 0-5 SEEN Normal 0-5 [facility] Comment on above: Order Comment: COLLE CTOR TO SPECIFY Performed By: #### L [id number] #### [facility] [address] [place], [address] WBC 0-5 SEEN Normal 0-5 [facility] Comment on above: Order Comment: COLLE CTOR TO SPECIFY Performed By: #### L [id number] #### [facility] [address] [place], [address] Mucus Ql (Urine sed) 0 SEEN Normal [facility] Comment on above: Order Comment: MASHA CTOR TO SPECIFY Performed By: #### L [id number] #### [facility] [address] [place], [address] Urine blood detectionOrdered By: Gregorio Cochran on 09-27-2024 Urine Occult Blood 25 /ul High Negative [facility] Urine clarityOrdered By: Kris Cochran on 09-27-2024 Clarity (U) Clear Clear [facility] Urine color determinationOrd ered By: Gregorio Cochran on 09-27-2024 Color (U) Yellow Yellow [facility] Urine glucose detectionOrder ed By: Gregorio Cochran on 09-27-2024 Glucose Ql (U) Normal mg/dl Normal [facility] Urine leukocyte esterase det ection by dipstickOrdered By: Gregorio Cochran on 09-27-2024 Leukocyte esterase Test strip Ql (U) 25 /ul High Negative [facility] Urine pHOrdered By: Gregorio mercer on 09-27-2024 pH (U) 6.5 [pH] 5.0 - 8.0 [facility] Urine sediment bacteria coun t by microscopy (number/high power field)Ordered By: Gregorio Cochran on 09-27-2024 Bacteria LM.HPF (Urine sed) [#/Area] 3 /[HPF] None Seen [facility] Urine specific gravity measu rementOrdered By: Gregorio Dimas on 09-27-2024 Specific gravity (U) [Rel density] 1.010 1.002-1.03 0 [facility] Urine urobilinogen measureme ntOrdered By: Gregorio Dimas on 09-27-2024 Urobilinogen Ql (U) Normal mg/dl Normal [facility] Urobilinogen Ql (U)Ordered B y: Gregorio Cochran on 09-27-2024 Urine Urobilinogen Normal mg/dl [facility] White blood cell (WBC) count Ordered By: Gregorio Cochran on 09-27-2024 WBC (Bld) [#/Vol] 10.5 10*3/uL 4.4-11.0 [facility] White blood cell countOrdere d By: Gregoriorogers Cochran on 09-27-2024 Urine WBC 0-5 SEEN /hpf 0-5 [facility] White blood cell count 0-5 SEEN /hpf 0-5 [facility] Abdomen/Pelvis without Conto n 09-12-2024 Abdomen/Pelvis without Cont [facility] Imaging Services [address] [place] [address] Abdomen/Pelvis without Cont MR#: [id number] Acct: [id number] Name: JULIANA MERIDA Rep #: [id number] : 1960 F 63 From: Ronaldo Stevenson PCP: Mariah Atkinson MD Status: [facility] ER Study: Abdomen/Pelvis without Cont Date of Exam: 08/08 Exam# [id number] Ordering Dr: Dino Pena MD PROCEDURE: ABDOMEN/PELVIS [...] use of iterative reconstruction technique). Reading Location: [facility] CC: Mariah Atkinson MD; Dr. Dino Pena MD Environmental Health Officer: Signed Normal [facility] Absolute neutrophil countOrd ered By: Dino Pena on 09-12-2024 Neutrophils (Bld) [#/Vol] 13.0 10*3/uL High 2.0-7.7 [facility] Amorphous sediment detection in urine sediment by light microscopyOrdered By: Dino Pena on 09-12-2024 Amorphous sediment LM Ql (Urine sed) 1+ URATE [facility] BUN/creatinine ratioOrdered By: Dino Pena on 09-12-2024 Urea nitrogen/Creatinine [Mass ratio] 16.2 mg/mg 10- [facility] Basic Metabolic Profile (BMP )on 09-12-2024 Anion gap [Moles/Vol] 14 mmol/L Normal 5-15 [facility] Comment on above: Performed By: #### L 100.0100, L500.2500 #### [facility] [address] [place], [place], [address] BUN/CRE 16.2 RATIO Normal - [facility] Comment on above: Performed By: #### L 100.0100, L500.2500 #### [facility] [address] [place], [address] Calcium [Mass/Vol] 9.3 mg/dL Normal 7.6-11.0 [facility] Comment on above: Performed By: #### L 100.0100, L500.2500 #### [facility] [address] [place], [address] Chloride [Moles/Vol] 94 mmol/L Low 96-108 [facility] Comment on above: Performed By: #### L 100.0100, L500.2500 #### [facility] [address] [place], [address] CO2 [Moles/Vol] 23.3 mmol/L Normal 22.0-29.0 [facility] Comment on above: Performed By: #### L 100.0100, L500.2500 #### [facility] [address] [place], [address] Creatinine [Mass/Vol] 1.29 mg/dL High 0.70-1.20 [facility] Comment on above: Performed By: #### L 100.0100, L500.2500 #### [facility] [address] [place], [address] ECRCL 50.34 ml/min Normal 50-250 [facility] Comment on above: Performed By: #### L 100.0100, L500.2500 #### [facility] [address] [place], [address] GFR/1.73 sq M.predicted among non-blacks MDRD (S/P/Bld) [Vol rate/Area] 47 mL/min/{1.73_m2} Low >60 [facility] Comment on above: Result Comment: mL/m in/1.73m2 CKD-EPI Creatinine Equation (2020) Performed By: #### L 100.0100, L500.2500 #### [facility] [address] [place], [address] Glucose [Mass/Vol] 239 mg/dL High 70-99 [facility] Comment on above: Performed By: #### L 100.0100, L500.2500 #### [facility] [address] [place], [address] Potassium [Moles/Vol] 4.3 mmol/L Normal 3.3-5.1 [facility] Comment on above: Performed By: #### L 100.0100, L500.2500 #### [facility] [address] [place], [address] Sodium [Moles/Vol] 132 mmol/L Low 133-145 [facility] Comment on above: Performed By: #### L 100.0100, L500.2500 #### [facility] [address] [place], [address] Urea nitrogen [Mass/Vol] 21 mg/dL High 4-19 [facility] Comment on above: Performed By: #### L 100.0100, L500.2500 #### [facility] [address] [place], [address] Basophil percentageOrdered B y: Dino Pena on 09-12-2024 Basophils/100 WBC (Bld) 0.4 % 0-1 [facility] Bilirubin Test strip Ql (U)O rdered By: Dino Pena on 09-12-2024 Bilirubin Ql (U) Negative Negative [facility] CBC W/Diff, Automatedon 03-0 Absolute Lymph 2.44 X10 3/uL Normal 0.83-4.51 [facility] Comment on above: Performed By: #### L 100.0100, L500.2500 #### [facility] [address] [place], [address] Absolute Neut 13.0 X10 3/uL High 2.0-7.7 [facility] Comment on above: Performed By: #### L 100.0100, L500.2500 #### [facility] [address] [place], [address] Basophils/100 WBC (Bld) 0.4 % Normal 0-1 [facility] Comment on above: Performed By: #### L 100.0100, L500.2500 #### [facility] [address] [place], [address] Eosinophils/100 WBC (Bld) 0.2 % Normal 0-5 [facility] Comment on above: Performed By: #### L 100.0100, L500.2500 #### [facility] [address] [place], [address] Erythrocyte distribution width (RBC) [Ratio] 13.6 % Normal 11.6-14.6 [facility] Comment on above: Performed By: #### L 100.0100, L500.2500 #### [facility] [address] [place], [address] Hematocrit (Bld) [Volume fraction] 45.5 % Normal 37-47 [facility] Comment on above: Performed By: #### L 100.0100, L500.2500 #### [facility] [address] [place], [address] Hemoglobin (Bld) [Mass/Vol] 14.7 g/dL Normal 12.0-15.0 [facility] Comment on above: Performed By: #### L 100.0100, L500.2500 #### [facility] [address] [place], [address] IG% 0.700 Normal 0.0-0.9 [facility] Comment on above: Result Comment: IG% - Immature Granulocytes (promyelocytes, myelocytes and metamyelocytes) > 1% indicates that a LEFT SHIFT is Present. Performed By: #### L 100.0100, L500.2500 #### [facility] [address] [place], [address] Lymphocytes/100 WBC (Bld) 14.6 % Low 19-41 [facility] Comment on above: Performed By: #### L 100.0100, L500.2500 #### [facility] [address] [place], [address] MCH (RBC) [Entitic mass] 28.9 pg Normal 27.0-32.0 [facility] Comment on above: Performed By: #### L 100.0100, L500.2500 #### [facility] [address] [place], [address] MCHC (RBC) [Mass/Vol] 32.3 g/dL Normal 32-36 [facility] Comment on above: Performed By: #### L 100.0100, L500.2500 #### [facility] [address] [place], [address] MCV (RBC) [Entitic vol] 89.4 fL Normal 81-99 [facility] Comment on above: Performed By: #### L 100.0100, L500.2500 #### [facility] [address] [place], [address] Monocytes/100 WBC (Bld) 6.7 % Normal 0-10 [facility] Comment on above: Performed By: #### L 100.0100, L500.2500 #### [facility] [address] [place], [address] Neutrophils/100 WBC (Bld) 77.4 % High 47-70 [facility] Comment on above: Performed By: #### L 100.0100, L500.2500 #### [facility] [address] [place], [address] Nucleated RBC (Bld) [#/Vol] 0 10*3/uL Normal 0-5 [facility] Comment on above: Performed By: #### L 100.0100, L500.2500 #### [facility] [address] [place], [address] Platelet mean volume (Bld) [Entitic vol] 10.2 fL Normal 6.2-12.0 [facility] Comment on above: Performed By: #### L 100.0100, L500.2500 #### [facility] [address] [place], [address] Platelets (Bld) [#/Vol] 272 10*3/uL Normal 150-450 [facility] Comment on above: Performed By: #### L 100.0100, L500.2500 #### [facility] [address] [place], [address] RBC (Bld) [#/Vol] 5.09 10*6/uL Normal 4.2-5.4 [facility] Comment on above: Performed By: #### L 100.0100, L500.2500 #### [facility] [address] [place], [address] RDW SD 44.4 fl High 35.1-43.9 [facility] Comment on above: Performed By: #### L 100.0100, L500.2500 #### [facility] [address] [place], [address] WBC (Bld) [#/Vol] 16.8 10*3/uL High 4.4-11.0 [facility] Comment on above: Performed By: #### L 100.0100, L500.2500 #### [facility] [address] [place], [address] Carbon dioxide measurementOr dered By: Dino Pena on 09-12-2024 CO2 [Moles/Vol] 23.3 mmol/L 22.0-29.0 [facility] Chloride measurementOrdered By: Dino Pena on 09-12-2024 Chloride [Moles/Vol] 94 mmol/L Low 96-108 [facility] Emergency Department Summary on 09-12-2024 Emergency Department Summary [facility] Medical Records Department [address] [place] [address] Emergency Department Summary 09/12/24 MR#: [id number] Acct: [id number] Name: JULIANA MERIDA Rep #: [id number] : 1960 63 From: Dino Pena MD PCP: Mariah Atkinson MD Status:DEP ER Location: ED HPI HPI - GI History of Present Illness Chief Complaint: Flank Pain Informant: patient and EMS Narrative Narrative: 63-year-old jail patient presenting with pain in her right [...] ago. She has seen a urologist in [place] but she cannot remember who it was. She denies any hematuria she is on Eliquis. She denies any cough, shortness of breath, fevers or chills or other symptoms. [facility] Medical History Lives in jail Hx of fracture of hip Wears glasses [...] bisacodyl 10 mg rectal suppository 10 mg CO .Q24 PRN PRN constipati on 12/18/22 Unknown [...] 12/18/22 Un (more content not included)... Normal [facility] Eosinophil percentageOrdered By: Dino Pena on 09-12-2024 Eosinophils/100 WBC (Bld) 0.2 % 0-5 [facility] Epithelial cells.squamous LM Ql (Urine sed)Ordered By: Dino Pena on 09-12-2024 Epithelial cells.squamous LM.HPF (Urine sed) [#/Area] 0 /[HPF] 5-10 [facility] Erythrocyte distribution wid th ratioOrdered By: Dino Pena on 09-12-2024 Erythrocyte distribution width (RBC) [Ratio] 13.6 % 11.6-14.6 [facility] Erythrocyte distribution wid th standard deviationOrdered By: Dino Pena on 09-12-2024 Erythrocyte distribution width (RBC) [Entitic vol] 44.4 fL High 35.1-43.9 [facility] Estimation of creatinine bret aranceOrdered By: Dino Pena on 09-12-2024 Estimated Creatinine Clearance Calc 50.34 ml/min 50-250 [facility] GFR/1.73 sq M.predicted augustin g non-blacks MDRD (S/P/Bld) [Vol rate/Area]Ordered By: Dino Pena on 09-12-2024 Estimated GFR (MDRD) Non-Af Amer 47 Low >60 [facility] Comment on above: mL/min/1.73m2 CKD-EP I Creatinine Equation (2020) Glucose Ql (U)Ordered By: Navya Pena on 09-12-2024 Urine Glucose (UA) Normal mg/dl Normal [facility] Hematocrit Auto (Bld) [Volum e fraction]Ordered By: Dino Pena on 09-12-2024 Hematocrit (Bld) [Volume fraction] 45.5 % 37-47 [facility] Hemoglobin measurementOrdere d By: Dino Pena on 09-12-2024 Hemoglobin (Bld) [Mass/Vol] 14.7 g/dL 12.0-15.0 [facility] Immature granulocytes/100 WB C Auto (Bld)Ordered By: Dino Pena on 09-12-2024 Immature granulocytes/100 WBC (Bld) 0.700 % 0.0-0.9 [facility] Comment on above: IG% - Immature Granu locytes (promyelocytes, myelocytes and metamyelocytes) > 1% indicates that a LEFT SHIFT is Present. Ketones Test strip Ql (U)Ord ered By: Dino Pena on 09-12-2024 Ketones Ql (U) Negative Negative [facility] Lymphocytes Auto (Unsp spec) [#/Vol]Ordered By: Dino Pena on 09-12-2024 Lymphocytes (Bld) [#/Vol] 2.44 10*3/uL 0.83-4.51 [facility] Lymphocytes/100 WBC Auto (Un sp spec)Ordered By: Dino Pena on 09-12-2024 Lymphocytes/100 WBC (Bld) 14.6 % Low 19-41 [facility] MCV (mean corpuscular volume ) determinationOrdered By: Dino Pena on 09-12-2024 MCV (RBC) [Entitic vol] 89.4 fL 81-99 [facility] Mean corpuscular hemoglobin (MCH) determinationOrdered By: Dino Pena on 09-12-2024 MCH (RBC) [Entitic mass] 28.9 pg 27.0-32.0 [facility] Mean corpuscular hemoglobin concentration (MCHC) determinationOrdered By: Dino Pena on 09-12-2024 MCHC (RBC) [Mass/Vol] 32.3 g/dL 32-36 [facility] Mean platelet volume determi nationOrdered By: Dino Pena on 09-12-2024 Platelet mean volume (Bld) [Entitic vol] 10.2 fL 6.2-12.0 [facility] Microscopic analysis of urin e for red blood cells (RBC)Ordered By: Dino Pena on 09-12-2024 Urine RBC 25-50 SEEN /hpf 0-5 [facility] Monocyte percentageOrdered B y: Dino Pena on 09-12-2024 Monocytes/100 WBC (Bld) 6.7 % 0-10 [facility] Mucus LM Ql (Urine sed)Order ed By: Dino Pena on 09-12-2024 Mucus Ql (Urine sed) 0 SEEN /hpf [facility] Neutrophil percentageOrdered By: Dino Pena on 09-12-2024 Neutrophils/100 WBC (Bld) 77.4 % High 47-70 [facility] Nitrite Test strip Ql (U)Ord ered By: Dino Pena on 09-12-2024 Nitrite Ql (U) Negative Negative [facility] Nucleated red blood cell per centageOrdered By: Dino Pena on 09-12-2024 Nucleated RBC/100 WBC (Bld) [Ratio] 0 % 0-5 [facility] Platelet countOrdered By: Navya Pena on 09-12-2024 Platelets (Bld) [#/Vol] 272 10*3/uL 150-450 [facility] Protein Test strip Ql (U)Ord ered By: Dino Pena on 09-12-2024 Protein Ql (U) 15 mg/dl High Negative [facility] RBC Auto (Bld) [#/Vol]Ordere d By: Dino Pena on 03-01-2025 RBC (Bld) [#/Vol] 5.09 10*6/uL 4.2-5.4 [facility] Serum creatinine measurement (mass/volume)Ordered By: Dino Pena on 09-12-2024 Creatinine [Mass/Vol] 1.29 mg/dL High 0.70-1.20 [facility] Serum glucose measurement (m ass/volume)Ordered By: Dino Pena on 09-12-2024 Glucose [Mass/Vol] 239 mg/dL High 70-99 [facility] Serum or plasma anion gap de termination (moles/volume)Ordered By: Dino Pena on 09-12-2024 Anion gap [Moles/Vol] 14 mmol/L 5-15 [facility] Serum or plasma calcium fabi urement (mass/volume)Ordered By: Dino Pena on 09-12-2024 Calcium [Mass/Vol] 9.3 mg/dL 7.6-11.0 [facility] Serum or plasma potassium me asurementOrdered By: Dino Pena on 09-12-2024 Potassium [Moles/Vol] 4.3 mmol/L 3.3-5.1 [facility] Serum or plasma sodium measu rement (moles/volume)Ordered By: Dino Pena on 09-12-2024 Sodium [Moles/Vol] 132 mmol/L Low 133-145 [facility] Serum or plasma urea nitroge n measurement (mass/volume)Ordered By: Dino Pena on 09-12-2024 Urea nitrogen [Mass/Vol] 21 mg/dL High 4-19 [facility] Urinalysis, Completeon 09-12 AMORPHOUS 1+ URATE Normal [facility] Comment on above: Order Comment: MASHA MCDONNELLOR TO SPECIFY Performed By: #### L 400.0001 #### [facility] [address] [place], [place], [id number] EPI,SQUAMOUS 0-5 SEEN Normal 5-10 [facility] Comment on above: Order Comment: MASHA MCDONNELLOR TO SPECIFY Performed By: #### L 400.0001 #### [facility] [address] [place], [address] RBC 25-50 SEEN Normal 0-5 [facility] Comment on above: Order Comment: MASHA CTOR TO SPECIFY Performed By: #### L 400.0001 #### [facility] [address] [place], [address] WBC 0-5 SEEN Normal 0-5 [facility] Comment on above: Order Comment: MASHA CTOR TO SPECIFY Performed By: #### L 400.0001 #### [facility] [address] [place], [address] BACTERIA 0 SEEN Normal None Seen [facility] Comment on above: Order Comment: MASHA CTOR TO SPECIFY Performed By: #### L 400.0001 #### [facility] [address] [place], [address] Mucus Ql (Urine sed) 0 SEEN [facility] Comment on above: Order Comment: MASHA CTOR TO SPECIFY Performed By: #### L 400.0001 #### [facility] [address] [place], [address] Urine blood detectionOrdered By: Dino Pena on 09-12-2024 Urine Occult Blood 250 /ul High Negative [facility] Urine clarityOrdered By: Migdalia Pena on 09-12-2024 Clarity (U) Sl. Cloudy Clear [facility] Urine color determinationOrd ered By: Dino Pena on 09-12-2024 Color (U) Yellow Yellow [facility] Urine leukocyte esterase det ection by dipstickOrdered By: Dino Pena on 09-12-2024 Leukocyte esterase Test strip Ql (U) 25 /ul High Negative [facility] Urine pHOrdered By: Dino Pena on 09-12-2024 pH (U) 5.0 [pH] 5.0 - 8.0 [facility] Urine sediment bacteria coun t by microscopy (number/high power field)Ordered By: Dino Pena on 09-12-2024 Bacteria LM.HPF (Urine sed) [#/Area] 0 /[HPF] None Seen [facility] Urine specific gravity measu rementOrdered By: Dino Pena on 09-12-2024 Specific gravity (U) [Rel density] 1.020 1.002-1.03 0 [facility] Urobilinogen Ql (U)Ordered B y: Dino Pena on 09-12-2024 Urine Urobilinogen Normal mg/dl Normal [facility] White blood cell (WBC) count Ordered By: Dino Pena on 09-12-2024 WBC (Bld) [#/Vol] 16.8 10*3/uL High 4.4-11.0 [facility] White blood cell countOrdere d By: Dino Becky on 09-12-2024 Urine WBC 0-5 SEEN /hpf 0-5 [facility] CNPNon 07-16-2024 CNPN Telephone (AGRHEUHWN ) -------- JULIANA MERIDA ([id number]) 1960 F Date Time Provider Department 07/16/24 FUNMILAYO POPE During your visit today, we recorded the following information about you: Sandra Dunn 07/16/2024 9:45 AM Signed Prolia- Bath Approved [id number] [facility] Medicare/Portal 07.15.24-07.15.25 2 visits 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 - insulin glargine,hum.rec.anlog (TOUJEO MAX U-300 SOLOSTAR SUBCUTANEOUS) Inject subcutaneously as directed. - fqdqxosnvkd-hedidwwmm-ud lanter (TRELEGY ELLIPTA) 200-62.5-25 mcg inhalation powder [...] 50 mcg/actuation (more content not included)... Normal [facility] MA MAMMOGRAM SCREENING BILAT ERAL W/TOMOon 06-05-2024 MA MAMMOGRAM SCREENING BILATERAL W/SHEREE ORIGINAL FROM: [address] [address] PROCEDURE FOR: JULIANA MERIDA [address] [place] [address] Home: PID#: [id number] Exam#: [id number] : 1960 Age: 63 TO: FLORENTIN HANSEN [facility] [address] [place] [address] EXAMINATION: SCREENING DIGITAL BILATERAL MAMMOGRAM WITH TOMOSYNTHESIS, [...] addition to annual mammographic screening per the [employer]. BIRADS: BI-RADS: 2: Benign RECALL: 1 year screening RECALL TYPE: mammo LETTER SENT: Normal BI-RADS 1 and 2 Interpreted by: Suresh Ruiz MD Preliminary Report By: Suresh Ruiz MD Electronically signed By Suresh Ruiz MD Dictated Date: 06/05/2024 3:28:32 PM Prelim Date: 06/05/2024 3:30:24 PM Sign Date: 06/05/2024 3:30:24 PM Ordering Provider: FLORENTIN HANSEN CLINICAL: BASELINE. 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: LASHONDA CHAN RT(R)(M) letter sent: Normal BI-RADS 1 and 2 Mammogram BI-RADS: 2 Benign Normal [facility] Abdomen/Pelvis without Conto n 04-08-2024 Abdomen/Pelvis without Cont [facility] Imaging Services [address] [place] [id number] Abdomen/Pelvis without Cont MR#: [id number] Acct: [id number] Name: JULIANA MERIDA Rep #: [id number] : 1960 F 63 From: Rancho Mares MD PCP: Bianca Palomares MD Status: DEP ER Study: Abdomen/Pelvis without Cont Date of Exam: 03/16 12/05 Exam# [id number] Ordering Dr: Rancho Orozco DO [id number] EXAM: CT ABDOMEN AND PELVIS WITHOUT INTRAVENOUS [...] CC: Rancho Orozco DO; Bianca Palomares MD Environmental Health Officer: Signed Normal [facility] Basic Metabolic Profile (BMP )on 04-08-2024 BUN/CRE 19.6 RATIO Normal 10-20 [facility] Comment on above: Order Comment: RESUL T(S) PREVIOUSLY REPORTED ON MANUAL REQUISITION DURINGDOWNTIME. Performed By: #### L 100.0100, L500.2500, L400.0001 ####[facility] [address] [place], [address] CA,Total 9.3 mg/dL Normal 8.5-10.1 [facility] Comment on above: Order Comment: RESUL T(S) PREVIOUSLY REPORTED ON MANUAL REQUISITION DURINGDOWNTIME. Performed By: #### L 100.0100, L500.2500, L400.0001 ####[facility] [address] [place], [address] Chloride [Moles/Vol] 101 mmol/L Normal 98-107 [facility] Comment on above: Order Comment: RESUL T(S) PREVIOUSLY REPORTED ON MANUAL REQUISITION DURINGDOWNTIME. Performed By: #### L 100.0100, L500.2500, L400.0001 ####[facility] [address] [place], [address] CO2 [Moles/Vol] 29.0 mmol/L Normal 21.0-32.0 [facility] Comment on above: Order Comment: RESUL T(S) PREVIOUSLY REPORTED ON MANUAL REQUISITION DURINGDOWNTIME. Performed By: #### L 100.0100, L500.2500, L400.0001 ####[facility] [address] [place], [address] Creatinine [Mass/Vol] 1.02 mg/dL Normal 0.55-1.02 [facility] Comment on above: Order Comment: RESUL T(S) PREVIOUSLY REPORTED ON MANUAL REQUISITION DURINGDOWNTIME. Result Comment: The validity of the calculated GFR GFRAA in patients over 70 years has not been determined. Clinical correlation is essential. Performed By: #### L 100.0100, L500.2500, L400.0001 ####[facility] [address] [place], [address] ECRCL 62.65 ml/min Normal [facility] Comment on above: Order Comment: RESUL T(S) PREVIOUSLY REPORTED ON MANUAL REQUISITION DURINGDOWNTIME. Performed By: #### L 100.0100, L500.2500, L400.0001 ####[facility] [address] [place], [address] EST GFR - AA 70 mL/min Normal >60 [facility] Comment on above: Order Comment: RESUL T(S) PREVIOUSLY REPORTED ON MANUAL REQUISITION DURINGDOWNTIME. Performed By: #### L 100.0100, L500.2500, L400.0001 ####[facility] [address] [place], [address] GAP 7 Normal 5-15 [facility] Comment on above: Order Comment: RESUL T(S) PREVIOUSLY REPORTED ON MANUAL REQUISITION DURINGDOWNTIME. Performed By: #### L 100.0100, L500.2500, L400.0001 ####[facility] [address] [place], [address] GFR/1.73 sq M.predicted among non-blacks MDRD (S/P/Bld) [Vol rate/Area] 58 mL/min/{1.73_m2} Low >60 [facility] Comment on above: Order Comment: RESUL T(S) PREVIOUSLY REPORTED ON MANUAL REQUISITION DURINGDOWNTIME. Performed By: #### L 100.0100, L500.2500, L400.0001 ####[facility] [address] [place], [address] Glucose [Mass/Vol] 135 mg/dL High 74-106 [facility] Comment on above: Order Comment: RESUL T(S) PREVIOUSLY REPORTED ON MANUAL REQUISITION DURINGDOWNTIME. Result Comment: Fast ing Glucose result greater than or equal to 126 mg/dL suggests DIABETES MELLITUS per A.D.A. criteria. Performed By: #### L 100.0100, L500.2500, L400.0001 ####[facility] [address] [place], [address] Potassium [Moles/Vol] 3.3 mmol/L Low 3.5-5.1 [facility] Comment on above: Order Comment: RESUL T(S) PREVIOUSLY REPORTED ON MANUAL REQUISITION DURINGDOWNTIME. Performed By: #### L 100.0100, L500.2500, L400.0001 ####[facility] [address] [place], [address] Sodium [Moles/Vol] 137 mmol/L Normal 136-145 [facility] Comment on above: Order Comment: RESUL T(S) PREVIOUSLY REPORTED ON MANUAL REQUISITION DURINGDOWNTIME. Performed By: #### L 100.0100, L500.2500, L400.0001 ####[facility] [address] [place], [address] Urea nitrogen [Mass/Vol] 20 mg/dL High 7-18 [facility] Comment on above: Order Comment: RESUL T(S) PREVIOUSLY REPORTED ON MANUAL REQUISITION DURINGDOWNTIME. Performed By: #### L 100.0100, L500.2500, L400.0001 ####[facility] [address] [place], [address] CBC W/Diff, Automatedon -2 5-202 Basophils/100 WBC (Bld) 0.4 % Normal 0-1 [facility] Comment on above: Performed By: #### L 100.0100, L500.2500, L400.0001 ####[facility] [address] [place], [address] Eosinophils/100 WBC (Bld) 0.6 % Normal 0-5 [facility] Comment on above: Performed By: #### L 100.0100, L500.2500, L400.0001 ####[facility] [address] [place], [address] IG% 0.800 Normal 0.0-0.9 [facility] Comment on above: Result Comment: IG% - Immature Granulocytes (promyelocytes, myelocytes and metamyelocytes) > 1% indicates that a LEFT SHIFT is Present. Performed By: #### L 100.0100, L500.2500, L400.0001 ####[facility] [address] [place], [address] Lymphocytes/100 WBC (Bld) 22.9 % Normal 19-41 [facility] Comment on above: Performed By: #### L 100.0100, L500.2500, L400.0001 ####[facility] [address] [place], [address] Monocytes/100 WBC (Bld) 6.9 % Normal 0-10 [facility] Comment on above: Performed By: #### L 100.0100, L500.2500, L400.0001 ####[facility] [address] [place], [address] Neutrophils/100 WBC (Bld) 68.4 % Normal 47-70 [facility] Comment on above: Performed By: #### L 100.0100, L500.2500, L400.0001 ####[facility] [address] [place], [address] Erythrocyte distribution width (RBC) [Ratio] 13.5 % Normal 11.6-14.6 [facility] Comment on above: Performed By: #### L 100.0100, L500.2500, L400.0001 ####[facility] [address] [place], [address] Hematocrit (Bld) [Volume fraction] 42.9 % Normal 37-47 [facility] Comment on above: Performed By: #### L 100.0100, L500.2500, L400.0001 ####[facility] [address] [place], [address] Hemoglobin (Bld) [Mass/Vol] 14.5 g/dL Normal 12.0-15.0 [facility] Comment on above: Performed By: #### L 100.0100, L500.2500, L400.0001 ####[facility] [address] [place], [address] MCH (RBC) [Entitic mass] 29.7 pg Normal 27.0-32.0 [facility] Comment on above: Performed By: #### L 100.0100, L500.2500, L400.0001 ####[facility] [address] [place], [address] MCHC (RBC) [Mass/Vol] 33.8 g/dL Normal 32-36 [facility] Comment on above: Performed By: #### L 100.0100, L500.2500, L400.0001 ####[facility] [address] [place], [address] MCV (RBC) [Entitic vol] 87.9 fL Normal 81-99 [facility] Comment on above: Performed By: #### L 100.0100, L500.2500, L400.0001 ####[facility] [address] [place], [address] Platelet mean volume (Bld) [Entitic vol] 9.9 fL Normal 6.2-12.0 [facility] Comment on above: Performed By: #### L 100.0100, L500.2500, L400.0001 ####[facility] [address] [place], [address] Platelets (Bld) [#/Vol] 200 10*3/uL Normal 150-450 [facility] Comment on above: Performed By: #### L 100.0100, L500.2500, L400.0001 ####[facility] [address] [place], [address] RBC (Bld) [#/Vol] 4.88 10*6/uL Normal 4.2-5.4 [facility] Comment on above: Performed By: #### L 100.0100, L500.2500, L400.0001 ####[facility] [address] [place], [address] RDW SD 43.8 fl Normal 35.1-43.9 [facility] Comment on above: Performed By: #### L 100.0100, L500.2500, L400.0001 ####[facility] [address] [place], [address] WBC (Bld) [#/Vol] 13.4 10*3/uL High 4.4-11.0 [facility] Comment on above: Performed By: #### L 100.0100, L500.2500, L400.0001 ####[facility] [address] [place], [address] Emergency Department Summary on 04-08-2024 Emergency Department Summary [facility] Medical Records Department [address] [facility] [address] [address] Emergency Department Summary 04/08/24 MR#: [id number] Acct: [id number] Name: JULIANA MERIDA YANELI Rep #: [id number] : 1960 63 From: Rancho Orozco DO [...] retention she was sent in for evaluation. [facility] Medical History Lives in jail Hx of fracture of hip Wears glasses [...] bisacodyl 10 mg rectal suppository 10 mg CO .Q24 PRN PRN constipation 12/18/22 Unknown History [...] Unknown History (more content not included)... Normal [facility] Urinalysis, Completeon 04-08 LEUK ESTERASE Negative Normal Negative [facility] Comment on above: Order Comment: RESUL T(S) PREVIOUSLY REPORTED ON MANUAL REQUISITION DURINGDOWNTIME.CLEAN CATCH Performed By: #### L 100.0100, L500.2500, L400.0001 ####[facility] [address] [place], [address] Nitrite Ql (U) Negative Normal Negative [facility] Comment on above: Order Comment: RESUL T(S) PREVIOUSLY REPORTED ON MANUAL REQUISITION DURINGDOWNTIME.CLEAN CATCH Performed By: #### L 100.0100, L500.2500, L400.0001 ####[facility] [address] [place], [address] OCCULT BLOOD-UR Negative Normal Negative [facility] Comment on above: Order Comment: RESUL T(S) PREVIOUSLY REPORTED ON MANUAL REQUISITION DURINGDOWNTIME.CLEAN CATCH Performed By: #### L 100.0100, L500.2500, L400.0001 ####[facility] [address] [place], [address] pH UR 7.0 Normal 5.0 - 8.0 [facility] Comment on above: Order Comment: RESUL T(S) PREVIOUSLY REPORTED ON MANUAL REQUISITION DURINGDOWNTIME.CLEAN CATCH Performed By: #### L 100.0100, L500.2500, L400.0001 ####[facility] [address] [place], [address] PROT DIPSTX Negative Normal Negative [facility] Comment on above: Order Comment: RESUL T(S) PREVIOUSLY REPORTED ON MANUAL REQUISITION DURINGDOWNTIME.CLEAN CATCH Performed By: #### L 100.0100, L500.2500, L400.0001 ####[facility] [address] [place], [address] SP.GR. DIPSTX 1.005 Normal 1.002-1.03 0 [facility] Comment on above: Order Comment: RESUL T(S) PREVIOUSLY REPORTED ON MANUAL REQUISITION DURINGDOWNTIME.CLEAN CATCH Performed By: #### L 100.0100, L500.2500, L400.0001 ####[facility] [address] [place], [address] UROBILI Normal Normal Normal [facility] Comment on above: Order Comment: RESUL T(S) PREVIOUSLY REPORTED ON MANUAL REQUISITION DURINGDOWNTIME.CLEAN CATCH Performed By: #### L 100.0100, L500.2500, L400.0001 ####[facility] [address] [place], [address] BILIRUBIN URINE Negative Normal Negative [facility] Comment on above: Order Comment: RESUL T(S) PREVIOUSLY REPORTED ON MANUAL REQUISITION DURINGDOWNTIME.CLEAN CATCH Performed By: #### L 100.0100, L500.2500, L400.0001 ####[facility] [address] [place], [address] Clarity (U) Clear Normal Clear [facility] Comment on above: Order Comment: RESUL T(S) PREVIOUSLY REPORTED ON MANUAL REQUISITION DURINGDOWNTIME.CLEAN CATCH Performed By: #### L 100.0100, L500.2500, L400.0001 ####[facility] [address] [place], [address] Color (U) YELLOW Normal Yellow [facility] Comment on above: Order Comment: RESUL T(S) PREVIOUSLY REPORTED ON MANUAL REQUISITION DURINGDOWNTIME.CLEAN CATCH Performed By: #### L 100.0100, L500.2500, L400.0001 ####[facility] [address] [place], [address] GLUCOSE, UR Negative Normal Normal [facility] Comment on above: Order Comment: RESUL T(S) PREVIOUSLY REPORTED ON MANUAL REQUISITION DURINGDOWNTIME.CLEAN CATCH Performed By: #### L 100.0100, L500.2500, L400.0001 ####[facility] [address] [place], [address] KETONE UR Negative Normal Negative [facility] Comment on above: Order Comment: RESUL T(S) PREVIOUSLY REPORTED ON MANUAL REQUISITION DURINGDOWNTIME.CLEAN CATCH Performed By: #### L 100.0100, L500.2500, L400.0001 ####[facility] [address] [place], [address] BACTERIA 0 SEEN Normal None Seen [facility] Comment on above: Order Comment: RESUL T(S) PREVIOUSLY REPORTED ON MANUAL REQUISITION DURINGDOWNTIME.CLEAN CATCH Performed By: #### L 100.0100, L500.2500, L400.0001 ####[facility] [address] [place], [address] EPI,SQUAMOUS 0 SEEN Normal 5-10 [facility] Comment on above: Order Comment: RESUL T(S) PREVIOUSLY REPORTED ON MANUAL REQUISITION DURINGDOWNTIME.CLEAN CATCH Performed By: #### L 100.0100, L500.2500, L400.0001 ####[facility] [address] [place], [address] Mucus Ql (Urine sed) 0 SEEN Normal [facility] Comment on above: Order Comment: RESUL T(S) PREVIOUSLY REPORTED ON MANUAL REQUISITION DURINGDOWNTIME.CLEAN CATCH Performed By: #### L 100.0100, L500.2500, L400.0001 ####[facility] [address] [place], [address] RBC 0 SEEN Normal 0-5 [facility] Comment on above: Order Comment: RESUL T(S) PREVIOUSLY REPORTED ON MANUAL REQUISITION DURINGDOWNTIME.CLEAN CATCH Performed By: #### L 100.0100, L500.2500, L400.0001 ####[facility] [address] [place], [address] WBC 0 SEEN Normal 0-5 [facility] Comment on above: Order Comment: RESUL T(S) PREVIOUSLY REPORTED ON MANUAL REQUISITION DURINGDOWNTIME.CLEAN CATCH Performed By: #### L 100.0100, L500.2500, L400.0001 ####[facility] [address] [place], [address] [facility] -------- JULIANA MERIDA ([id number]) 1960 F Date Time Provider Department 03/23/24 [...] AND Alexsandra in [facility]'s office a [email or web address] chat message letting them know patient was [...] hours as needed for cough. 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 - insulin glargine,hum.rec.anlog (TOUJEO MAX U-300 SOLOSTAR SUBCUTANEOUS) Inject subcutaneously as directed. - kejrrfstnad-vkmskiwss-kj lanter (TRELEGY ELLIPTA) 200-62.5-25 mcg inhalation powder [...] 20 mg (more content not included)... Normal [facility] CNPN Telephone (INELGIN) -------- JULIANA MERIDA ([id number]) 1960 F Date Time Provider Department 03/23/24 [...] hours as needed for cough. 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 - insulin glargine,hum.rec.anlog (TOUJEO MAX U-300 SOLOSTAR SUBCUTANEOUS) Inject subcutaneously as directed. - xgkpwjcjksl-qyifbried-we lanter (TRELEGY ELLIPTA) 200-62.5-25 mcg inhalation powder [...] (FLONASE) 50 mcg/actuation nasal spray Use 1 [place] in each nostril once daily. . - pregabalin (LYRICA) 100 mg capsule Take 1 capsule by mouth twice daily. - magnesium oxide (MAG-OX) 400 mg tablet Take 1 tablet by mouth once daily. - multivitamin tablet Take 1 tab (more content not included)... Normal [facility] Bedside Glucoseon 03-22-2024 FINGERSTICK GLU 158 mg/dL High 74-106 [facility] Comment on above: Result Comment: PAO MARS OF PATIENT CARE PER NURSING PROTOCOL Performed By: #### L 400.0001 #### [facility] Laboratory [address] [place], [place], [id number] 12 Lead EKGon 03-21-2024 12 Lead EKG [facility] Cardiovascular Services [address] [place] [address] 12 Lead EKG 03/21/24 194 MR#: [id number] Acct: [id number] Name: JULIANA MERIDA Rep #: [id number] : 1960 63 From: Kurt Justice MD [...] Borderline ECG Confirmed by KURT JUSTICE MD ([id number]), editorial intern SVETA STILES ([id number]) on 03/23/2024 6:45:07 AM Referred By: AR Confirmed By:KURT JUSTICE MD 03/23/24 0645 Date Kurt Justice MD CC: Dr. Oswaldo Lo MD; Bianca Palomares MD Signed Normal [facility] 12 Lead EKG [facility] Cardiovascular Services [address] [place] [address] 12 Lead EKG 03/21/24 2110 MR#: [id number] Acct: [id number] Name: JULIANA MERIDA YANELI Rep #: [id number] : 1960 63 From: Kurt Justice MD [...] Borderline ECG Confirmed by KURT JUSTICE MD ([id number]), editor STILES SVETA ([id number]) on 03/23/2024 6:44:53 AM Referred By: Confirmed By:KURT JUSTICE MD 03/23/24 0644 Date Kurt Justice MD CC: Dr. Oswaldo Lo MD; Bianca Palomares MD Signed Normal [facility] Basic Metabolic Profile (BMP )on 03-21-2024 BUN/CRE 15.2 RATIO Normal 10-20 [facility] Comment on above: Order Comment: COLLE CTOR TO SPECIFY Performed By: #### L 400.0001 #### [facility] Laboratory [address] [place], [address] CA,Total 9.7 mg/dL Normal 8.5-10.1 [facility] Comment on above: Order Comment: MASHA CTOR TO SPECIFY Performed By: #### L 400.0001 #### [facility] Laboratory [address] [place], [address] Chloride [Moles/Vol] 106 mmol/L Normal 98-107 [facility] Comment on above: Order Comment: MASHA CTOR TO SPECIFY Performed By: #### L 400.0001 #### [facility] Laboratory [address] [place], [address] CO2 [Moles/Vol] 25.0 mmol/L Normal 21.0-32.0 [facility] Comment on above: Order Comment: COLLE CTOR TO SPECIFY Performed By: #### L 400.0001 #### [facility] Laboratory [address] [place], [address] Creatinine [Mass/Vol] 0.86 mg/dL Normal 0.55-1.02 [facility] Comment on above: Order Comment: MASHA CTOR TO SPECIFY Result Comment: The validity of the calculated GFR GFRAA in patients over 70 years has not been determined. Clinical correlation is essential. Performed By: #### L 400.0001 #### [facility] Laboratory [address] [place], [address] ECRCL 74.91 ml/min Normal [facility] Comment on above: Order Comment: MASHA CTOR TO SPECIFY Performed By: #### L 400.0001 #### [facility] Laboratory [address] [place], [address] EST GFR - AA 86 mL/min Normal >60 [facility] Comment on above: Order Comment: MASHA CTOR TO SPECIFY Result Comment: Afri can Angolan GFR Calc Performed By: #### L 400.0001 #### [facility] Laboratory [address] [place], [address] GAP 7 Normal 5-15 [facility] Comment on above: Order Comment: MASHA CTOR TO SPECIFY Performed By: #### L 400.0001 #### [facility] [address] [place], [address] GFR/1.73 sq M.predicted among non-blacks MDRD (S/P/Bld) [Vol rate/Area] 71 mL/min/{1.73_m2} Normal >60 [facility] Comment on above: Order Comment: MASHA CTOR TO SPECIFY Result Comment: Non- GFR Calc Performed By: #### L 400.0001 #### [facility] Laboratory [address] [place], [address] Glucose [Mass/Vol] 227 mg/dL High 74-106 [facility] Comment on above: Order Comment: MASHA CTOR TO SPECIFY Result Comment: Gluc ose result greater than or equal to 200 mg/dL suggests DIABETES MELLITUS per A.D.A. criteria. Performed By: #### L 400.0001 #### [facility] Laboratory [address] [place], [address] Potassium [Moles/Vol] 3.7 mmol/L Normal 3.5-5.1 [facility] Comment on above: Order Comment: MASHA CTOR TO SPECIFY Performed By: #### L 400.0001 #### [facility] Laboratory [address] [place], [address] Sodium [Moles/Vol] 138 mmol/L Normal 136-145 [facility] Comment on above: Order Comment: MASHA CTOR TO SPECIFY Performed By: #### L 400.0001 #### [facility] [address] [place], [address] Urea nitrogen [Mass/Vol] 13 mg/dL Normal 7-18 [facility] Comment on above: Order Comment: MASHA CTOR TO SPECIFY Performed By: #### L 400.0001 #### [facility] [address] [place], [address] CBC W/Diff, Automatedon 09-0 7-2023 Absolute Lymph 3.14 X10 3/uL Normal 0.83-4.51 [facility] Comment on above: Performed By: #### L 400.0001 #### [facility] Laboratory [address] [place], [address] Absolute Neut 8.1 X10 3/uL High 2.0-7.7 [facility] Comment on above: Performed By: #### L 400.0001 #### [facility] Laboratory [address] [place], [address] Basophils/100 WBC (Bld) 0.6 % Normal 0-1 [facility] Comment on above: Performed By: #### L 400.0001 #### [facility] Laboratory [address] [place], [address] Eosinophils/100 WBC (Bld) 0.7 % Normal 0-5 [facility] Comment on above: Performed By: #### L 400.0001 #### [facility] Laboratory [address] [place], [address] Erythrocyte distribution width (RBC) [Ratio] 13.8 % Normal 11.6-14.6 [facility] Comment on above: Performed By: #### L 400.0001 #### [facility] Laboratory [address] [place], [address] Hematocrit (Bld) [Volume fraction] 46.8 % Normal 37-47 [facility] Comment on above: Performed By: #### L 400.0001 #### [facility] Laboratory [address] [place], [address] Hemoglobin (Bld) [Mass/Vol] 15.5 g/dL High 12.0-15.0 [facility] Comment on above: Performed By: #### L 400.0001 #### [facility] Laboratory [address] [place], [address] IG% 0.700 Normal 0.0-0.9 [facility] Comment on above: Result Comment: IG% - Immature Granulocytes (promyelocytes, myelocytes and metamyelocytes) > 1% indicates that a LEFT SHIFT is Present. Performed By: #### L 400.0001 #### [facility] Laboratory [address] [place], [address] Lymphocytes/100 WBC (Bld) 25.7 % Normal 19-41 [facility] Comment on above: Performed By: #### L 400.0001 #### [facility] Laboratory [address] [place], [address] MCH (RBC) [Entitic mass] 29.2 pg Normal 27.0-32.0 [facility] Comment on above: Performed By: #### L 400.0001 #### [facility] Laboratory [address] [place], [address] MCHC (RBC) [Mass/Vol] 33.1 g/dL Normal 32-36 [facility] Comment on above: Performed By: #### L 400.0001 #### [facility] Laboratory [address] [place], [address] MCV (RBC) [Entitic vol] 88.1 fL Normal 81-99 [facility] Comment on above: Performed By: #### L 400.0001 #### [facility] Laboratory [address] [place], [address] Monocytes/100 WBC (Bld) 6.4 % Normal 0-10 [facility] Comment on above: Performed By: #### L 400.0001 #### [facility] Laboratory [address] [place], [address] Neutrophils/100 WBC (Bld) 65.9 % Normal 47-70 [facility] Comment on above: Performed By: #### L 400.0001 #### [facility] Laboratory [address] [place], [address] Nucleated RBC (Bld) [#/Vol] 0 10*3/uL Normal 0-5 [facility] Comment on above: Performed By: #### L 400.0001 #### [facility] Laboratory [address] [place], [address] Platelet mean volume (Bld) [Entitic vol] 10.7 fL Normal 6.2-12.0 [facility] Comment on above: Performed By: #### L 400.0001 #### [facility] Laboratory [address] [place], [address] Platelets (Bld) [#/Vol] 218 10*3/uL Normal 150-450 [facility] Comment on above: Performed By: #### L 400.0001 #### [facility] Laboratory [address] [place], [address] RBC (Bld) [#/Vol] 5.31 10*6/uL Normal 4.2-5.4 [facility] Comment on above: Performed By: #### L 400.0001 #### [facility] Laboratory [address] [place], [address] RDW SD 44.6 fl High 35.1-43.9 [facility] Comment on above: Performed By: #### L 400.0001 #### [facility] Laboratory [address] [place], [address] WBC (Bld) [#/Vol] 12.2 10*3/uL High 4.4-11.0 [facility] Comment on above: Performed By: #### L 400.0001 #### [facility] Laboratory [address] [place], [address] Chest 1 View (Portable)on Chest 1 View (Portable) [facility] Imaging Services [address] [place] [address] Chest 1 View (Portable) MR#: [id number] Acct: [id number] Name: JULIANA MERIDA Rep #: [id number] : 1960 F 63 From: Rob salinas MD PCP: Bianca Palomares MD Status: REG ER Study: Chest 1 View (Portable) Date of Exam: 03/21/24 Exam# [id number] Ordering Dr: Oswaldo Lo MD [id number] INDICATION: chest pain EXAMINATION/TECHNIQUE: X-RAY - XR Chest 1 View COMPARISON: 12/19/2023. FINDINGS: The lungs are clear. Tortuous and calcified thoracic aorta. The heart is not enlarged. No pleural effusion or pneumothorax. No acute osseous abnormalities. RAD/Chest 1 View (Portable) IMPRESSION: No acute radiographic abnormalities. Electronically Signed: Rob Booker MD at 20:25 EDT , CC: Dr. Oswaldo Lo MD; Bianca Palomares MD Environmental Health Officer: Signed Normal [facility] Emergency Department Summary on 03-21-2024 Emergency Department Summary [facility] Medical Records Department [address] [place] [address] Emergency Department Summary 03/21/24 MR#: [id number] Acct: [id number] Name: JULIANA MERIDA Rep #: [id number] : 1960 63 From: Oswaldo Lo MD [...] few days. No exacerbating or alleviating factors. [facility] Medical History Lives in jail Hx of fracture of hip Wears glasses [...] bisacodyl 10 mg rectal suppository 10 mg CO .Q24 PRN PRN constipation 12/18/22 Unknown History [...] 12/18/22 Un (more content not included)... Normal [facility] L501.4020on 03-21-2024 TROPONIN-I HS 7 pg/mL Normal 3.0-54.0 [facility] Comment on above: Result Comment: Jerrod sher Note: New Test Units and Gender Specific Reference Ranges. For more information see Policy Stat Procedure [place] High Sensitivity Troponin (TNIH) and attachments. Performed By: #### L 400.0001 #### [facility] Laboratory [address] [place], [place], [address] L501.5425on 03-21-2024 TROPONIN-I HS 6 pg/mL Normal 3.0-54.0 [facility] Comment on above: Order Comment: COLLE CTOR TO SPECIFY Result Comment: Plea se Note: New Test Units and Gender Specific Reference Ranges. For more information see Policy Stat Procedure [place] High Sensitivity Troponin (TNIH) and attachments. Performed By: #### L 400.0001 #### [facility] Laboratory [address] [place], [address] Urinalysis, Completeon 03-21 BACTERIA 1+ /hpf Normal None Seen [facility] Comment on above: Order Comment: LEROY TER SPECIMEN Performed By: #### L 400.0001 ####[facility] [address] [place], [address] EPI,SQUAMOUS 5-10 SEEN Normal 5-10 [facility] Comment on above: Order Comment: LEROY TER SPECIMEN Performed By: #### L 400.0001 ####[facility] [address] [place], [address] WBC 5-10 SEEN Normal 0-5 [facility] Comment on above: Order Comment: LEROY TER SPECIMEN Performed By: #### L 400.0001 ####[facility] [address] [place], [address] BILIRUBIN URINE Negative Normal Negative [facility] Comment on above: Order Comment: LEROY TER SPECIMEN Performed By: #### L 400.0001 ####[facility] [address] [place], [address] Clarity (U) Clear Normal Clear [facility] Comment on above: Order Comment: LEROY TER SPECIMEN Performed By: #### L 400.0001 ####[facility] [address] [place], [address] Color (U) Yellow Normal Yellow [facility] Comment on above: Order Comment: LEROY TER SPECIMEN Performed By: #### L 400.0001 ####[facility] [address] [place], [address] GLUCOSE, UR 1000 mg/dl Abnormal Normal [facility] Comment on above: Order Comment: LEROY TER SPECIMEN Performed By: #### L 400.0001 ####[facility] [address] [place], [address] KETONE UR Negative Normal Negative [facility] Comment on above: Order Comment: LEROY TER SPECIMEN Performed By: #### L 400.0001 ####[facility] [address] [place], [address] LEUK ESTERASE 25 /ul Abnormal Negative [facility] Comment on above: Order Comment: LEROY TER SPECIMEN Performed By: #### L 400.0001 ####[facility] [address] [place], [address] Nitrite Ql (U) Negative Normal Negative [facility] Comment on above: Order Comment: LEROY TER SPECIMEN Performed By: #### L 400.0001 ####[facility] [address] [place], [address] OCCULT BLOOD-UR Negative Normal Negative [facility] Comment on above: Order Comment: LEROY TER SPECIMEN Performed By: #### L 400.0001 ####[facility] [address] [place], [address] pH UR 7.0 Normal 5.0 - 8.0 [facility] Comment on above: Order Comment: LEROY TER SPECIMEN Performed By: #### L 400.0001 ####[facility] [address] [place], [address] PROT DIPSTX 15 mg/dl Abnormal Negative [facility] Comment on above: Order Comment: LEROY TER SPECIMEN Performed By: #### L 400.0001 ####[facility] [address] [place], [address] SP.GR. DIPSTX 1.010 Normal 1.002-1.03 0 [facility] Comment on above: Order Comment: LEROY TER SPECIMEN Performed By: #### L 400.0001 ####[facility] [address] [place], [address] UROBILI Normal Normal Normal [facility] Comment on above: Order Comment: LEROY TER SPECIMEN Performed By: #### L 400.0001 ####[facility] [address] [place], [address] Mucus Ql (Urine sed) 0 SEEN Normal [facility] Comment on above: Order Comment: LEROY TER SPECIMEN Performed By: #### L 400.0001 ####[facility] [address] [place], [address] RBC 0 SEEN Normal 0-5 [facility] Comment on above: Order Comment: LEROY TER SPECIMEN Performed By: #### L 400.0001 ####[facility] [address] [place], [address] Bedside Glucoseon 02-07-2024 FINGERSTICK GLU 251 mg/dL High 74-106 [facility] Comment on above: Result Comment: PAO MARS OF PATIENT CARE PER NURSING PROTOCOL Performed By: #### L 400.0001 #### [facility] Laboratory [address] [place], [address] MR/POSTOP.ANEon 02-07-2024 MR/POSTOP.[facility] Medical Records Department [address] [place] [address] Anesthesia Postop Eval I 02/07/24 1026 MR#: [id number] Acct: [id number] Name: JULIANA MERIDA YANELI Rep #: [id number] : 1960 63 From: Eric Serna PCP: Bianca Palomares MD Status[place] [facility] [place] Race: C Location: [place] [address] Anesthesia: Postop Eval I Current Vital Signs [...] Serna Cosigner Signature: Date CC: Signed Normal [facility] MR/[id number] 02-07-2024 MR/POSTOPAN2 [facility] Medical Records Department [address] [place] [address] Anesthesia Postop Eval II 02/07/24 1300 MR#: [id number] Acct: [id number] Name: JULIANA MERIDA Rep #: [id number] : 1960 63 From: Eric Monte MD PCP: Bianca Palomares MD Status:[facility] Y Race: C [place] [facility] [place]esthesia Postop Eval I Sum Postop Eval Completion status Anesthesia document: Postop Eval 1 completed: Yes Anesthesia Postop Eval I Summary Anesthesia Postop Eval I Summary: Anesthesia Postop Eval I: Assessment Summary Airway patent Yes 02/07/24 10:27 PLATEN GRINDER.MDOT Spontaneous unlabored Yes 02/07/24 10:27 PLATEN GRINDER.MDOT respirations Mental status Awake,Calm 02/07/24 10:27 PLATEN GRINDER.MDOT nausea No 02/07/24 10:27 PLATEN GRINDER.MDOT Vomiting No 02/07/24 10:27 PLATEN GRINDER.MDOT Anesthesia Postop Eval I: Fluid Summary Crystalloid volume administer 800 02/07/24 10:27 PLATEN GRINDER.MDOT (ml) Colloids volume administered ( ml) Blood Product volume administered (ml) Total IV fluid infused 800 02/07/24 10:27 PLATEN GRINDER.MDOT Anesthesia Postop Eval I: Summary Notes Anesthesia Complication No 02/07/24 10:27 PLATEN GRINDER.MDOT Anesthesia Complication Comment: Post-operative progress note Anesthesia: Postop Eval II Evaluation Mental status: Awake and Calm Pain Level: 1 nausea: No Vomiting: No Complications Anesthesia Complication: No 02/07/24 1300 Date Eric Monte MD Cosigner Signature: Date CC: Signed Normal [facility] Absolute lymphocyte countOrd ered By: Dino Pena on 11-24-2023 Lymphocytes Auto (Unsp spec) [#/Vol] 2.37 10*3/uL 0.83-4.51 [facility] Automated lymphocyte count a s percentage of total leukocytesOrdered By: Dino Pena on 11-24-2023 Lymphocytes/100 WBC Auto (Unsp spec) 20.5 % 19-41 [facility] Basophil percentageOrdered B y: Dino Pena on 11-24-2023 Basophil percentage 0 SEEN /hpf 0-5 [facility] Basophils/100 WBC (Bld) 0.3 % 0-1 [facility] Chloride [Moles/Vol] 104 mmol/L 98-107 [facility] Eosinophils/100 WBC (Bld) 0.6 % 0-5 [facility] Glucose [Mass/Vol] 141 mg/dL 74-106 [facility] Comment on above: Fasting Glucose resu lt greater than or equal to 126 mg/dL suggests DIABETES MELLITUS per A.D.A. criteria. Hemoglobin (Bld) [Mass/Vol] 14.4 g/dL 12.0-15.0 [facility] Monocytes/100 WBC (Bld) 8.4 % 0-10 [facility] Neutrophils (Bld) [#/Vol] 8.0 10*3/uL 2.0-7.7 [facility] Neutrophils/100 WBC (Bld) 69.2 % 47-70 [facility] Potassium [Moles/Vol] 3.9 mmol/L 3.5-5.1 [facility] Sodium [Moles/Vol] 142 mmol/L 136-145 [facility] WBC (Bld) [#/Vol] 11.6 10*3/uL 4.4-11.0 [facility] Bilirubin Test strip Ql (U)O rdered By: Dino Pena on 11-24-2023 Bilirubin Ql (U) Negative Negative [facility] Determination of erythrocyte mean corpuscular volume (MCV)Ordered By: Dino Pena on 11-24-2023 MCV (RBC) [Entitic vol] 89.4 fL 81-99 [facility] Erythrocyte distribution wid th ratioOrdered By: Dino Pena on 11-24-2023 Erythrocyte distribution width (RBC) [Ratio] 15.5 % 11.6-14.6 [facility] Erythrocyte distribution wid th standard deviationOrdered By: Dino Pena on 11-24-2023 Erythrocyte distribution width (RBC) [Entitic vol] 50.6 fL 35.1-43.9 [facility] Hematocrit Auto (Bld) [Volum e fraction]Ordered By: Dino Pena on 11-24-2023 Hematocrit (Bld) [Volume fraction] 43.8 % 37-47 [facility] Immature granulocytes/100 WB C Auto (Bld)Ordered By: Dino Pena on 11-24-2023 Immature granulocytes/100 WBC (Bld) 1.000 % 0.0-0.9 [facility] Comment on above: IG% - Immature Granu locytes (promyelocytes, myelocytes and metamyelocytes) > 1% indicates that a LEFT SHIFT is Present. Ketones Test strip Ql (U)Ord ered By: Dino Pean on 11-24-2023 Ketones Ql (U) Negative Negative [facility] Laboratory - Chemistry and C hemistry - challengeOrdered By: Dino Pena on 11-24-2023 CO2 [Moles/Vol] 33.0 mmol/L 21.0-32.0 [facility] Urea nitrogen/Creatinine [Mass ratio] 17.9 mg/mg 10-20 [facility] Laboratory - Hematology and Cell countsOrdered By: Dino Pena on 11-24-2023 MCH (RBC) [Entitic mass] 29.4 pg 27.0-32.0 [facility] MCHC (RBC) [Mass/Vol] 32.9 g/dL 32-36 [facility] Nucleated RBC/100 WBC (Bld) [Ratio] 0 % 0-5 [facility] Platelet mean volume (Bld) [Entitic vol] 9.9 fL 6.2-12.0 [facility] Platelets (Bld) [#/Vol] 223 10*3/uL 150-450 [facility] Mucus LM Ql (Urine sed)Order ed By: Dino Pena on 11-24-2023 Mucus Ql (Urine sed) 0 SEEN /hpf [facility] Nitrite Test strip Ql (U)Ord ered By: Dino Pena on 11-24-2023 Nitrite Ql (U) Negative Negative [facility] No Panel InformationOrdered By: Dino Pena on 11-24-2023 Urine RBC 0 SEEN /hpf 0-5 [facility] Estimated Creatinine Clearance Calc 77.96 ml/min [facility] Estimated GFR (MDRD) Amer 89 mL/min >60 [facility] Comment on above: GFR Calc Estimated GFR (MDRD) Non-Af Amer 73 mL/min >60 [facility] Comment on above: Non- GFR Calc Troponin I High Sensitivity 5 pg/mL 3.0-54.0 [facility] Comment on above: Please Note: New Ines t Units and Gender Specific Reference Ranges. For more information see Policy Stat Procedure [place] High Sensitivity Troponin (TNIH) and attachments. Protein Test strip Ql (U)Ord ered By: Dino Pena on 11-24-2023 Protein Ql (U) Negative Negative [facility] RBC Auto (Bld) [#/Vol]Ordere d By: Dino Pena on 11-24-2023 RBC (Bld) [#/Vol] 4.90 10*6/uL 4.2-5.4 [facility] Serum or plasma calcium fabi urement (mass/volume)Ordered By: Dino Pena on 11-24-2023 Calcium [Mass/Vol] 9.0 mg/dL 8.5-10.1 [facility] Serum or plasma creatinine m easurement (mass/volume)Ordered By: Dino Pena on 11-24-2023 Creatinine [Mass/Vol] 0.84 mg/dL 0.55-1.02 [facility] Comment on above: The validity of the calculated GFR & GFRAA in patients over 70 years has not been determined. Clinical correlation is essential. Serum or plasma urea nitroge n measurement (mass/volume)Ordered By: Dino Pena on 11-24-2023 Urea nitrogen [Mass/Vol] 15 mg/dL 7-18 [facility] Squamous epithelial cells de tection in urine sediment by light microscopyOrdered By: Dino Pena on 11-24-2023 Epithelial cells.squamous LM Ql (Urine sed) 0-5 SEEN /hpf 5-10 [facility] Thin prep Papanicolaou smear with manual screeningOrdered By: Dino Pena on 11-24-2023 Thin prep Papanicolaou smear with manual screening 5 5-15 [facility] Urine blood detectionOrdered By: Dino Pena on 11-24-2023 RBC Ql (U) Negative Negative [facility] Urine clarityOrdered By: Migdalia Pena on 11-24-2023 Clarity (U) Clear Clear [facility] Urine color determinationOrd ered By: Dino Pena on 11-24-2023 Color (U) Yellow Yellow [facility] Urine glucose detectionOrder ed By: Dino Pena on 11-24-2023 Glucose Ql (U) Normal mg/dl Normal [facility] Urine leukocyte esterase det ection by dipstickOrdered By: Dino Pena on 11-24-2023 Leukocyte esterase Test strip Ql (U) Negative Negative [facility] Urine pHOrdered By: Dino Pena on 11-24-2023 pH (U) 7.0 [pH] 5.0 - 8.0 [facility] Urine sediment bacteria coun t by microscopy (number/high power field)Ordered By: Dino Pena on 11-24-2023 Bacteria LM.HPF (Urine sed) [#/Area] 0 /[HPF] None Seen [facility] Urine specific gravity measu rementOrdered By: Dino Pena on 11-24-2023 Specific gravity (U) [Rel density] 1.010 1.002-1.03 0 [facility] Urine urobilinogen measureme ntOrdered By: Dino Pena on 11-24-2023 Urobilinogen Ql (U) Normal mg/dl Normal [facility] CT ABDOMEN/PELVIS W/O CONTRA STon 10-05-2023 CT [...] 10/05/2023 8:25:51 PM Ordering Provider: MAULIK العلي [facility] ([place]) Absolute lymphocyte countOrd ered By: Chilango Laughlin on 09-26-2023 Lymphocytes Auto (Unsp spec) [#/Vol] 2.05 10*3/uL 0.83-4.51 [facility] Anaerobic cultureOrdered By: Chilango Laughlin on 09-26-2023 Bacteria identified Anaer cx Nom (Unsp spec) No anaerobic bacteria isolated. [facility] Automated lymphocyte count a s percentage of total leukocytesOrdered By: Chilango Laughlin on 09-26-2023 Lymphocytes/100 WBC Auto (Unsp spec) 20.9 % 19-41 [facility] Bacteria identified Cx Nom ( Wound)Ordered By: Chilango Laughlin on 09-26-2023 Wound Culture Meth. resistant Stap h. aureus [facility] Basophil percentageOrdered B y: Chilango Laughlin on 09-26-2023 Basophils/100 WBC (Bld) 0.4 % 0-1 [facility] Bilirubin [Mass/Vol] 0.40 mg/dL 0.20-1.00 [facility] Comment on above: For patients on eltr ombopag therapy, use of Dimension [place] TBIL is not recommended. Chloride [Moles/Vol] 106 mmol/L 98-107 [facility] Eosinophils/100 WBC (Bld) 1.3 % 0-5 [facility] Glucose [Mass/Vol] 210 mg/dL 74-106 [facility] Comment on above: Glucose result great er than or equal to 200 mg/dLsuggests DIABETES MELLITUS per A.D.A. criteria. Hemoglobin (Bld) [Mass/Vol] 14.5 g/dL 12.0-15.0 [facility] Monocytes/100 WBC (Bld) 7.7 % 0-10 [facility] Neutrophils (Bld) [#/Vol] 6.8 10*3/uL 2.0-7.7 [facility] Neutrophils/100 WBC (Bld) 69.1 % 47-70 [facility] Potassium [Moles/Vol] 4.5 mmol/L 3.5-5.1 [facility] Comment on above: Moderate Hemolysis, Result may be falsely increased. Protein [Mass/Vol] 6.9 g/dL 6.4-8.2 [facility] Sodium [Moles/Vol] 139 mmol/L 136-145 [facility] WBC (Bld) [#/Vol] 9.8 10*3/uL 4.4-11.0 [facility] Determination of erythrocyte mean corpuscular volume (MCV)Ordered By: Chilango Laughlin on 09-26-2023 MCV (RBC) [Entitic vol] 87.5 fL 81-99 [facility] Erythrocyte distribution wid th ratioOrdered By: Chilango Laughlin on 09-26-2023 Erythrocyte distribution width (RBC) [Ratio] 13.4 % 11.6-14.6 [facility] Erythrocyte distribution wid th standard deviationOrdered By: Chilango Laughlin on 09-26-2023 Erythrocyte distribution width (RBC) [Entitic vol] 42.7 fL 35.1-43.9 [facility] Erythrocyte sedimentation ra teOrdered By: Chilango Laughlin on 09-26-2023 ESR (Bld) [Velocity] 15 mm/h 0-30 [facility] Gram stain for investigation of transfusion reactionOrdered By: Chilango Laughlin on 09-26-2023 Microscopic observation Gram stain Nom (Unsp spec) [facility] Hematocrit Auto (Bld) [Volum e fraction]Ordered By: Chilango Laughlin on 09-26-2023 Hematocrit (Bld) [Volume fraction] 44.9 % 37-47 [facility] Immature granulocytes/100 WB C Auto (Bld)Ordered [facility]: [facility] on 09-26-2023 Immature granulocytes/100 WBC (Bld) 0.600 % 0.0-0.9 [facility] Comment on above: IG% - Immature Granu locytes (promyelocytes, myelocytes and metamyelocytes) > 1% indicates that a LEFT SHIFT is Present. Laboratory - Chemistry and C hemistry - challengeOrdered By: Chilango Laughlin on 09-26-2023 Albumin/Globulin [Mass ratio] 1.0 {ratio} 0.9-2.4 [facility] ALP [Catalytic activity/Vol] 60 U/L 45-117 [facility] ALT [Catalytic activity/Vol] 62 U/L 13-56 [facility] CO2 [Moles/Vol] 28.0 mmol/L 21.0-32.0 [facility] Globulin (S) [Mass/Vol] 3.5 g/dL 2.2-4.2 [facility] Urea nitrogen/Creatinine [Mass ratio] 17.4 mg/mg 10-20 [facility] Laboratory - Hematology and Cell countsOrdered By: Chilango Laughlin on 09-26-2023 MCH (RBC) [Entitic mass] 28.3 pg 27.0-32.0 [facility] MCHC (RBC) [Mass/Vol] 32.3 g/dL 32-36 [facility] Nucleated RBC/100 WBC (Bld) [Ratio] 0 % 0-5 [facility] Platelet mean volume (Bld) [Entitic vol] 10.6 fL 6.2-12.0 [facility] Platelets (Bld) [#/Vol] 222 10*3/uL 150-450 [facility] No Panel InformationOrdered By: Chilango Laughlin on 09-26-2023 C-Reactive Protein Extended Range 5.51 mg/L 0.0-3.0 [facility] Comment on above: C-Reactive Protein ( CRP) provides useful information for thediagnosis, therapy and monitoring of inflammatory processesand associated diseases. For the evaluation of Relative Riskfor Cardiovascular Disease, a High Sensitivity CRP (HSCRP)should be ordered. Estimated GFR (MDRD) Amer 93 mL/min >60 [facility] Comment on above: GFR Calc Estimated GFR (MDRD) Non-Af Amer 77 mL/min >60 [facility] Comment on above: Non- GFR Calc RBC Auto (Bld) [#/Vol]Ordere d By: Chilango Laughlin on 09-26-2023 RBC (Bld) [#/Vol] 5.13 10*6/uL 4.2-5.4 [facility] Serum or plasma calcium fabi urement (mass/volume)Ordered By: Chilango Laughlin on 09-26-2023 Calcium [Mass/Vol] 9.4 mg/dL 8.5-10.1 [facility] Serum or plasma creatinine m easurement (mass/volume)Ordered By: Chilango Laughlin on 09-26-2023 Creatinine [Mass/Vol] 0.80 mg/dL 0.55-1.02 [facility] Comment on above: The validity of the calculated GFR & GFRAA in patients over 70 years has not been determined. Clinical correlation is essential. Serum or plasma urea nitroge n measurement (mass/volume)Ordered By: Chilango Laughlin on 09-26-2023 Urea nitrogen [Mass/Vol] 14 mg/dL 7-18 [facility] Thin prep Papanicolaou smear with manual screeningOrdered By: Chilango Laughlin on 09-26-2023 Thin prep Papanicolaou smear with manual screening 3.4 g/dL 3.2-5.0 [facility] Thin prep Papanicolaou smear with manual screening 42 U/L 15-37 [facility] Comment on above: Moderate Hemolysis, Result may be falsely increased. Thin prep Papanicolaou smear with manual screening 5 5-15 [facility] Anaerobic cultureOrdered By: Chilango Laughlin on 08-22-2023 Bacteria identified Anaer cx Nom (Unsp spec) No anaerobic bacteria isolated. [facility] Bacteria identified Anaer cx Nom (Unsp spec) No anaerobic bacteria isolated. [facility] Bacteria identified Cx Nom ( Wound)Ordered By: Chilango Laughlin on 08-22-2023 Wound Culture Meth. resistant Stap h. aureus [facility] Wound Culture Meth. resistant Stap h. aureus [facility] Gram stain for investigation of transfusion reactionOrdered By: Chilango Laughlin on 08-22-2023 Microscopic observation Gram stain Nom (Unsp spec) [facility] Microscopic observation Gram stain Nom (Unsp spec) [facility] Anaerobic cultureOrdered By: Chilango Laughlin on 07-18-2023 Bacteria identified Anaer cx Nom (Unsp spec) No anaerobic bacteria isolated. [facility] Bacteria identified Anaer cx Nom (Unsp spec) No anaerobic bacteria isolated. [facility] Bacteria identified Cx Nom ( Wound)Ordered By: Chilango Laughlin on 07-18-2023 Wound Culture Meth. resistant Stap h. aureus [facility] Wound Culture Meth. resistant Stap h. aureus [facility] Gram stain for investigation of transfusion reactionOrdered By: Chilango Laughlin on 07-18-2023 Microscopic observation Gram stain Nom (Unsp spec) [facility] Microscopic observation Gram stain Nom (Unsp spec) [facility] Anaerobic cultureOrdered By: Dr. Laughlin on 11-25-2022 Bacteria identified Anaer cx Nom (Unsp spec) No anaerobic bacteria isolated. [facility] Bacteria identified Cx Nom ( Wound)Ordered By: Dr. Laughlin on 11-24-2022 Wound Culture Klebsiella pneumonia e sp pneum [facility] Wound Culture Proteus mirabilis [facility] Gram stain for investigation of transfusion reactionOrdered By: Dr. Laughlin on 11-23-2022 Microscopic observation Gram stain Nom (Unsp spec) [facility] Anaerobic cultureOrdered By: Chilango Laughlin on 11-22-2022 Bacteria identified Anaer cx Nom (Unsp spec) No anaerobic bacteria isolated. [facility] Bacteria identified Cx Nom ( Wound)Ordered By: Chilango Laughlin on 11-22-2022 Wound Culture Klebsiella pneumonia e sp pneum [facility] Wound Culture Proteus mirabilis [facility] Gram stain for investigation of transfusion reactionOrdered By: Chilango Laughlin on 11-22-2022 Microscopic observation Gram stain Nom (Unsp spec) [facility] XR ANKLE AND FOOT 6 VIEWS RI [...] 10/17/2022 5:04:00 AM Ordering Provider: MAKENNA HYATT [facility] ([place]) XR KNEE THREE VIEWS RIGHTon 10-17-2022 XR [...] 10/17/2022 5:02:30 AM Ordering Provider: MAKENNA HYATT [facility] ([place]) LABORATORYOrdered By: Cici Mcnally on 04-28-2022 Basophil, [...] 247 mg/dL Abnormal 74 - 99 mg/dL [facility] LABORATORYOrdered By: Savanna Allen on 12-01-2021 Appearance [...] Routine cultures are held for 5 days. [place] LABORATORYOrdered By: Jeremy Waters on 11-30-2021 Adenovirus [...] [Mass/Vol] 3.6 g/dL 3.4 - 5.0 g/dL [facility] ALP [Catalytic activity/Vol] 80 U/L 46 - 116 U/L [facility] ALT With P-5'-P [Catalytic activity/Vol] 51 U/L 12 - 78 U[facility] Anion gap [Moles/Vol] 9 mmol/L 8 - 16 mmol/L [facility] AST With P-5'-P [Catalytic activity/Vol] 31 U/L 15 - 46 U/L [facility] Bilirubin [Mass/Vol] 0.2 mg/dL 0.2 - 1 .0 mg/dL [facility] Calcium [Mass/Vol] 8.8 mg/dL 8.5 - 10. 1 mg/dL [facility] Chloride [Moles/Vol] 102 mmol/L 98 - 10 7 mmol/L [facility] CO2 [Moles/Vol] 25 mmol/L 21 - 32 mmol/L [facility] Creatinine [Mass/Vol] 0.67 mg/dL 0.51 - 0.95 mg/dL [facility] Estimated Glomerular Filtration Rate 100 mL/min/1.73m >=60 mL/min/1.7 3m [facility] Glucose [Mass/Vol] 264 mg/dL High 70 - 99 mg/dL [facility] Potassium [Moles/Vol] 4.2 mmol/L 3.5 - 5.1 mmol/L [facility] Protein [Mass/Vol] 7.0 g/dL 6.4 - 8.2 g/dL [facility] Sodium [Moles/Vol] 136 mmol/L 136 - 145 mmol/L [facility] Urea nitrogen [Mass/Vol] 10 mg/dL 7 - 18 mg/dL [facility] BD DXA - AXIAL SKELETONon BD DXA - AXIAL SKELETON * * *Final Report* * * DATE OF EXAM: Aug 07 2021 12:03PM [facility] 0804 - BD DXA - AXIAL [...] Osteoporosis Less than or equal to -2.5 Environmental Health Officer: AKIL Transcribe Date/Time: Aug 07 2021 12:13P Dictated by : RINA YOST MD This examination was interpreted and the report reviewed and electronically signed by: RINA YOST MD on Aug 07 2021 12:14PM EST [id number] Normal [facility] Office Visiton 01-18-2017 Documentation of current medications (procedure) Done Invalid Interpretation Code [facility] Work Phone: [phone] Protein mass conc Done [facility] Work Phone: [phone] Tobacco smoking status NHIS Never smoker [facility] Work Phone: [phone] Tobacco use [facility] Never smoker Invalid Interpretation Code [facility] Work Phone: [phone] Office Visiton 12-12-2016 Documentation of current medications (procedure) Done Invalid Interpretation Code [facility] Work Phone: [phone] Tobacco use CP Never smoker Invalid Interpretation Code [facility] Work Phone: [phone] Lab Report: Bedside Glucoseo n 11-27-2016 Glucose 123 mg/dL High 70-110 [facility] Work Phone: [phone] Glucose mass conc 123 mg/dL High 70-110 [facility] Work Phone: [phone] Lab Report: Hemoglobin A1con 11-22-2016 HbA1c 7.4 % High 4.2-6.3 [facility] Work Phone: [phone] Lab Report: Partial Thrombop last Timeon 11-22-2016 aPTT 30.9 s Invalid Interpretation Code 24.1-36.2 [facility] Work Phone: [phone] Lab Report: Prothrombin Time w/INRon 11-22-2016 Coagulation tissue factor induced in platelet poor plasma 12.6 s Invalid Interpretation Code 11.7-14.9 [facility] Work Phone: [phone] INR Coag RelTime (PPP) 1.0 {INR} [facility] Work Phone: [phone] INR in blood by coagulation 1.0 {INR} Invalid Interpretation Code [facility] Work Phone: [phone] Office Visiton 11-14-2016 Documentation of current medications (procedure) Done Invalid Interpretation Code [facility] Work Phone: [phone] Tobacco use [facility] Never smoker Invalid Interpretation Code [facility] Work Phone: [phone] Office Visiton 08-27-2016 Documentation of current medications (procedure) Done Invalid Interpretation Code [facility] Work Phone: [phone] Tobacco use [facility] Never smoker Invalid Interpretation Code [facility] Work Phone: [phone] Vital Signs Date Time Vital Sign Value Performing Clinician Facility 01-25-2025 06:00-0400 Diastolic blood pressure 87 mm[Hg] Dr. Mariah Atkinson MD Work Phone: [facility] 01-25-2025 06:00-0400 Heart rate 90 /min Dr. Mariah Atkinson MD Work Phone: [facility] 01-25-2025 06:00-0400 Respiratory rate 18 /min Dr. Mariah Atkinson MD Work Phone: [facility] 01-25-2025 06:00-0400 SaO2% (BldA) [Mass fraction] 97 % Dr. Mariah Atkinson MD Work Phone: [facility] 01-25-2025 06:00-0400 Systolic blood pressure 178 mm[Hg] Dr. Mariah Atkinson MD Work Phone: [facility] 01-25-2025 02:29-0400 Body temperature 98.1 [degF] Dr. Mariah Atkinson MD Work Phone: [facility] 01-25-2025 00:00-0400 Body mass index (BMI) [Ratio] 35.5 kg/m2 Dr. Mariah Atkinson MD Work Phone: [facility] 01-25-2025 00:00-0400 Body weight 90.[address] Mariah Atkinson MD Work Phone: [facility] 01-24-2025 22:34-0400 Body height 160.[address] Mariah Atkinson MD Work Phone: [facility] 01-21-2025 09:25-0400 Body temperature 97.1 [degF] Dr. Mariah Atkinson MD Work Phone: [facility] 01-21-2025 09:25-0400 Diastolic blood pressure 61 mm[Hg] Dr. Mariah Atkinson MD Work Phone: [facility] 01-21-2025 09:25-0400 Heart rate 85 /min Dr. Mariah Atkinson MD Work Phone: [facility] 01-21-2025 09:25-0400 Respiratory rate 16 /min Dr. Mariah Atkinson MD Work Phone: [facility] 01-21-2025 09:25-0400 SaO2% (BldA) [Mass fraction] 97 % Dr. Mariah Atkinson MD Work Phone: [facility] 01-21-2025 09:25-0400 Systolic blood pressure 129 mm[Hg] Dr. Mariah Atkinson MD Work Phone: [facility] 01-21-2025 07:45-0400 Body height 161.[address] Mariah Atkinson MD Work Phone: [facility] 01-21-2025 07:45-0400 Body mass index (BMI) [Ratio] 34.9 kg/m2 Dr. Mariah Atkinson MD Work Phone: [facility] 01-21-2025 07:45-0400 Body weight 90.[address] Mariah Atkinson MD Work Phone: [facility] 09-27-2024 04:39-0400 Body temperature 98 [degF] Dr. Dino Pena MD Work Phone: [phone] [place] [address] 09-27-2024 04:39-0400 Diastolic blood pressure 82 mm[Hg] Dr. Dino Pena MD Work Phone: [phone])203-775059 [place] [address] 09-27-2024 04:39-0400 Heart rate 72 /min Dr. Dino Pena MD Work Phone: [phone])450-248359 [place] [address] 09-27-2024 04:39-0400 Respiratory rate 18 /min Dr. Dino Pena MD Work Phone: [phone] [place] [address] 09-27-2024 04:39-0400 SaO2% (BldA) [Mass fraction] 93 % Dr. Dino Pena MD Work Phone: [phone])142-507279 [place] [address] 09-27-2024 04:39-0400 Systolic blood pressure 160 mm[Hg] Dr. Dino Pena MD Work Phone: [phone])360-085659 [place] [address] 09-27-2024 01:36-0400 Body height 160.[address] Dino Pena MD Work Phone: [phone] [place] [address] 09-13-2024 04:51-0500 Diastolic blood pressure 61 mm[Hg] Dr. Dino Pena MD Work Phone: [phone] [place] [address] 09-13-2024 04:51-0500 Heart rate 77 /min Dr. Dino Pena MD Work Phone: 4([phone])911-778679 [place] [address] 09-13-2024 04:51-0500 Inhaled oxygen flow rate 2 L/min Dr. Dino Pena MD Work Phone: [phone])483-900479 [place] [address] 09-13-2024 04:51-0500 Respiratory rate 19 /min Dr. Dino Pena MD Work Phone: [phone] [place] [address] 09-13-2024 04:51-0500 SaO2% (BldA) [Mass fraction] 95 % Dr. Dino Pena MD Work Phone: [facility] 09-13-2024 04:51-0500 Systolic blood pressure 111 mm[Hg] Dr. Dino Pena MD Work Phone: [facility] 09-13-2024 00:52-0500 Body temperature 98 [degF] Dr. Dino Pena MD Work Phone: [facility] 09-12-2024 22:06-0500 Body mass index (BMI) [Ratio] 38.1 kg/m2 Dr. Dino Pean MD Work Phone: [facility] 09-12-2024 22:06-0500 Body weight 97.[address] Dino Pena MD Work Phone: [facility] 07-27-2024 13:31-0500 Body temperature 97.7 [degF] [facility] 07-27-2024 13:31-0500 Diastolic blood pressure 74 mm[Hg] [facility] 07-27-2024 13:31-0500 Heart rate 70 /min [facility] 07-27-2024 13:31-0500 Respiratory rate 16 /min [facility] 07-27-2024 13:31-0500 SaO2% (BldA) [Mass fraction] 97 % [facility] 07-27-2024 13:31-0500 Systolic blood pressure 130 mm[Hg] [facility] 11-24-2023 21:43-0400 Body temperature 97.1 [degF] Dr. Chilango Laughlin Work Phone: [facility] 11-24-2023 21:43-0400 Diastolic blood pressure 73 mm[Hg] Dr. Chilango Laughlin Work Phone: [facility] 11-24-2023 21:43-0400 Heart rate 81 /min Dr. Chilango Laughlin Work Phone: [facility] 11-24-2023 21:43-0400 Respiratory rate 16 /min Dr. Chilango Laughlin Work Phone: [facility] 11-24-2023 21:43-0400 SaO2% (BldA) [Mass fraction] 95 % Dr. Chilango Laughlin Work Phone: [facility] 11-24-2023 21:43-0400 Systolic blood pressure 161 mm[Hg] Dr. Chilango Laughlin Work Phone: [facility] 11-24-2023 16:26-0400 Body height 160.[address] Chilango Laughlin Work Phone: [facility] 11-24-2023 16:26-0400 Body mass index (BMI) [Ratio] 38.7 kg/m2 Dr. Chilango Laughlin Work Phone: [facility] 11-24-2023 16:26-0400 Body weight 99.[address] Chilango Laughlin Work Phone: [facility] 11-21-2023 08:45-0400 Body temperature 96.6 [degF] Dr. Chilango Laughlin Work Phone: [facility] 11-21-2023 08:45-0400 Diastolic blood pressure 72 mm[Hg] Dr. Chilagno Laughlin Work Phone: [facility] 11-21-2023 08:45-0400 Heart rate 84 /min Dr. Chilango Laughlin Work Phone: [facility] 11-21-2023 08:45-0400 Respiratory rate 15 /min Dr. Chilango Laughlin Work Phone: [facility] 11-21-2023 08:45-0400 Systolic blood pressure 146 mm[Hg] Dr. Chilango Laughlin Work Phone: [facility] 11-07-2023 09:41-0400 Body temperature 97.5 [degF] Dr. Chilango Laughlin Work Phone: [facility] 11-07-2023 09:41-0400 Diastolic blood pressure 47 mm[Hg] Dr. Chilango Laughlin Work Phone: [facility] 11-07-2023 09:41-0400 Heart rate 67 /min Dr. Chilango Laughlin Work Phone: [facility] 11-07-2023 09:41-0400 Respiratory rate 18 /min Dr. Chilango Laughlin Work Phone: [facility] 11-07-2023 09:41-0400 Systolic blood pressure 111 mm[Hg] Dr. Chilango Laughlin Work Phone: [facility] 10-10-2023 09:50-0400 Body temperature 97.4 [degF] Dr. Chilango Laughlin Work Phone: [facility] 10-10-2023 09:50-0400 Diastolic blood pressure 52 mm[Hg] Dr. Chilango Laughlin Work Phone: [facility] 10-10-2023 09:50-0400 Heart rate 80 /min Dr. Chilango Laughlin Work Phone: [facility] [facility] 10-10-2023 09:50-0400 Respiratory rate 18 /min Dr. Chilango Laughlin Work Phone: [facility] 10-10-2023 09:50-0400 Systolic blood pressure 113 mm[Hg] Dr. Chilango Laughlin Work Phone: [facility] 09-20-2023 11:29-0500 Body temperature 97.5 [degF] Chair Bath Work Phone: [facility] 09-20-2023 11:29-0500 Diastolic blood pressure 80 mm[Hg] Chair Bath Work Phone: [facility] 09-20-2023 11:29-0500 Heart rate 86 /min Chair Bath Work Phone: [facility] 09-20-2023 11:29-0500 Respiratory rate 18 /min Chair Bath Work Phone: [facility] 09-20-2023 11:29-0500 SaO2% (BldA) [Mass fraction] 96 % Chair Bath Work Phone: [facility] 09-20-2023 11:29-0500 Systolic blood pressure 129 mm[Hg] Chair Bath Work Phone: [facility] 09-05-2023 09:29-0500 Body temperature 96.3 [degF] Dr. Chilango Laughlin Work Phone: [facility] 09-05-2023 09:29-0500 Diastolic blood pressure 65 mm[Hg] Dr. Chilango Laughlin Work Phone: [facility] 09-05-2023 09:29-0500 Heart rate 77 /min Dr. Chilango Laughlin Work Phone: [facility] 09-05-2023 09:29-0500 Respiratory rate 18 /min Dr. Chilango Laughlin Work Phone: [facility] 09-05-2023 09:29-0500 Systolic blood pressure 132 mm[Hg] Dr. Chilango Laughlin Work Phone: [facility] 08-08-2023 09:02-0500 Body temperature 96.5 [degF] Dr. Chilango Laughlin Work Phone: [facility] 08-08-2023 09:02-0500 Diastolic blood pressure 60 mm[Hg] Dr. Chilango Laughlin Work Phone: [facility] 08-08-2023 09:02-0500 Heart rate 84 /min Dr. Chilango Laughlin Work Phone: [facility] 08-08-2023 09:02-0500 Respiratory rate 20 /min Dr. Chilango Laughlin Work Phone: [facility] 08-08-2023 09:02-0500 Systolic blood pressure 112 mm[Hg] Dr. Chilango Laughlin Work Phone: [facility] 07-11-2023 08:53-0500 Body temperature 96.3 [degF] Dr. Chilango Laughlin Work Phone: [facility] 07-11-2023 08:53-0500 Diastolic blood pressure 62 mm[Hg] Dr. Chilango Laughlin Work Phone: [facility] 07-11-2023 08:53-0500 Heart rate 81 /min Dr. Chilango Laughlin Work Phone: [facility] 07-11-2023 08:53-0500 Respiratory rate 18 /min Dr. Chilango Laughlin Work Phone: [facility] 07-11-2023 08:53-0500 Systolic blood pressure 114 mm[Hg] Dr. Chilango Laughlin Work Phone: [facility] 06-13-2023 09:52-0500 Body temperature 95.6 [degF] Dr. Chilango Laughlin Work Phone: [facility] 06-13-2023 09:52-0500 Diastolic blood pressure 62 mm[Hg] Dr. Chilango Laughlin Work Phone: [facility] 06-13-2023 09:52-0500 Heart rate 97 /min Dr. Chilango Laughlin Work Phone: [facility] 06-13-2023 09:52-0500 Respiratory rate 16 /min Dr. Chilango Laughlin Work Phone: [facility] 06-13-2023 09:52-0500 Systolic blood pressure 142 mm[Hg] Dr. Chilango Laughlin Work Phone: [facility] 05-02-2023 09:16-0400 Body temperature 96.5 [degF] Dr. Bianca Palomares [facility] 05-02-2023 09:16-0400 Diastolic blood pressure 66 mm[Hg] Dr. Bianca Palomares [facility] 05-02-2023 09:16-0400 Heart rate 64 /min Dr. Bianca Palomares [facility] 05-02-2023 09:16-0400 Respiratory rate 16 /min Dr. Bianca Palomares [facility] 05-02-2023 09:16-0400 Systolic blood pressure 135 mm[Hg] Dr. Bianca Palomares [facility] 04-11-2023 09:55-0400 Body temperature 96 [degF] Dr. Bianca Palomares [facility] 04-11-2023 09:55-0400 Diastolic blood pressure 63 mm[facility]Hg[facility] 09:55-0400 Heart rate 66 /min Dr. Bianca Palomares [facility] 04-11-2023 09:55-0400 Respiratory rate 18 /min Dr. Bianca Palomares [facility] 04-11-2023 09:55-0400 Systolic blood pressure 114 mm[Hg] Dr. Bianca Palomares [facility] 03-14-2023 09:18-0400 Body temperature 96.8 [degF] Dr. Bianca Palomares [facility] 03-14-2023 09:18-0400 Diastolic blood pressure 66 mm[Hg] Dr. Bianca Palomares [facility] 03-14-2023 09:18-0400 Heart rate 73 /min Dr. Bianca Palomares [facility] 03-14-2023 09:18-0400 Respiratory rate 18 /min Dr. Bianca Palomares [facility] 03-14-2023 09:18-0400 Systolic blood pressure 122 mm[facility]Hg[facility] 03-13-2023 13:01-0400 Body temperature 97 [degF] Chair Bath Work Phone: [facility] 03-13-2023 13:01-0400 Diastolic blood pressure 67 mm[Hg] Chair Bath Work Phone: [facility] 03-13-2023 13:01-0400 Heart rate 72 /min Chair Bath Work Phone: [facility] 03-13-2023 13:01-0400 Respiratory rate 18 /min Chair Bath Work Phone: [facility] 03-13-2023 13:01-0400 Systolic blood pressure 117 mm[Hg] Chair Bath Work Phone: [facility] 02-07-2023 09:16-0400 Body temperature 97 [degF] Dr. Chilango Laughlin Work Phone: [facility] 02-07-2023 09:16-0400 Diastolic blood pressure 55 mm[Hg] Dr. Chilango Laughlin Work Phone: [facility] 02-07-2023 09:16-0400 Heart rate 72 /min Dr. Chilango Laughlin Work Phone: [facility] 02-07-2023 09:16-0400 Respiratory rate 18 /min Dr. Chilango Laughlin Work Phone: [facility] 02-07-2023 09:16-0400 Systolic blood pressure 106 mm[Hg] Dr. Chilango Laughlin Work Phone: [facility] 01-16-2023 12:52-0400 Body temperature 98.2 [degF] Dr. Chilango Laughlin Work Phone: [facility] 01-16-2023 12:52-0400 Diastolic blood pressure 70 mm[Hg] Dr. Chilango Laughlin Work Phone: [facility] 01-16-2023 12:52-0400 Heart rate 64 /min Dr. Chilango Laughlin Work Phone: [facility] 01-16-2023 12:52-0400 Respiratory rate 16 /min Dr. Chilango Laughlin Work Phone: [facility] 01-16-2023 12:52-0400 SaO2% (BldA) [Mass fraction] 96 % Dr. Chilango Laughlin Work Phone: [facility] 01-16-2023 12:52-0400 Systolic blood pressure 112 mm[Hg] Dr. Chilango Laughlin Work Phone: [facility] 01-11-2023 13:25-0400 Body temperature 97.8 [degF] Dr. Chilango Laughlin Work Phone: [facility] 01-11-2023 13:25-0400 Diastolic blood pressure 59 mm[Hg] Dr. Chilango Laughlin Work Phone: [facility] 01-11-2023 13:25-0400 Heart rate 72 /min Dr. Chilango Laughlin Work Phone: [facility] 01-11-2023 13:25-0400 Respiratory rate 18 /min Dr. Chilango Laughlin Work Phone: [facility] 01-11-2023 13:25-0400 Systolic blood pressure 120 mm[Hg] Dr. Chilango Laughlin Work Phone: [facility] 12-06-2022 09:36-0400 Body temperature 96.6 [degF] Dr. Chilango Laughlin Work Phone: [facility] 12-06-2022 09:36-0400 Diastolic blood pressure 72 mm[Hg] Dr. Chilango Laughlin Work Phone: [facility] 12-06-2022 09:36-0400 Heart rate 73 /min Dr. Chilango Laughlin Work Phone: [facility] 12-06-2022 09:36-0400 Respiratory rate 18 /min Dr. Chilango Laughlin Work Phone: [facility] 12-06-2022 09:36-0400 Systolic blood pressure 122 mm[Hg] Dr. Chilango Laughlin Work Phone: [facility] 10-17-2022 05:30-0400 Diastolic Blood Pressure Non-Invasive [address] MAKENNA HYATT MD [facility] 10-17-2022 05:30-0400 Heart rate 75 /min DR MAKENNA HYATT MD [facility] 10-17-2022 05:30-0400 Respiratory rate 18 /min DR MAKENNA HYATT MD [facility] 10-17-2022 05:30-0400 Systolic Blood Pressure Non-Invasive [address] MAKENNA HYATT MD [facility] 10-17-2022 04:05-0400 Body temperature 99.32 [degF] DR MAKENNA HYATT MD [facility] 10-17-2022 04:05-0400 Diastolic Blood Pressure Non-Invasive [address] MAKENNA HYATT MD [facility] 10-17-2022 04:05-0400 Heart rate 72 /min DR MAKENNA HYATT MD [facility] 10-17-2022 04:05-0400 Respiratory rate 18 /min DR MAKENNA HYATT MD [facility] 10-17-2022 04:05-0400 Systolic Blood Pressure Non-Invasive [address] MAKENNA HYATT MD [facility] 09-05-2022 09:41-0500 Diastolic blood pressure 73 mm[Hg] [facility] 09-05-2022 09:41-0500 Heart rate 78 /min [facility] 09-05-2022 09:41-0500 Systolic blood pressure 131 mm[Hg] [facility] 04-28-2022 17:23-0400 Body temperature 98.6 [degF] TAVIA NORRIS MD [facility] 04-28-2022 17:23-0400 Diastolic blood pressure 49 mm[Hg] TAVIA NORRIS MD [facility] 04-28-2022 17:23-0400 Heart rate 71 /min TAVIA NORRIS MD [facility] 04-28-2022 17:23-0400 Respiratory rate 18 /min TAVIA NORRIS MD [facility] 04-28-2022 17:23-0400 Systolic blood pressure 179 mm[Hg] TAVIA NORRIS MD [facility] 03-07-2022 09:32-0400 Body temperature 98.2 [degF] Bed Bath Work Phone: [facility] 03-07-2022 09:32-0400 Body weight 91.4 kg Bed Bath Work Phone: [facility] 03-07-2022 09:32-0400 Diastolic blood pressure 76 mm[Hg] Bed Bath Work Phone: [facility] 03-07-2022 09:32-0400 Heart rate 69 /min Bed Bath Work Phone: [facility] 03-07-2022 09:32-0400 Respiratory rate 18 /min Bed Bath Work Phone: [facility] 03-07-2022 09:32-0400 Systolic blood pressure 125 mm[Hg] Bed Bath Work Phone: [facility] 01-31-2022 08:52-0400 Body temperature 97.7 [degF] Berenice Edmond PA-C Work Phone: [facility] 01-31-2022 08:52-0400 Diastolic blood pressure 76 mm[Hg] Berenice Barile PA-C Work Phone: [facility] 01-31-2022 08:52-0400 Heart rate 78 /min Berenice Barinubia PA-C Work Phone: [facility] 01-31-2022 08:52-0400 SaO2% (BldA) [Mass fraction] 92 % Berenice Barile PA-C Work Phone: [facility] 01-31-2022 08:52-0400 Systolic blood pressure 120 mm[Hg] Berenice Barile PA-C Work Phone: [facility] 12-13-2021 09:33-0400 Diastolic blood pressure 58 mm[Hg] Ronaldo Villarreal MD Work Phone: [facility] 12-13-2021 09:33-0400 Heart rate 86 /min Ronaldo Villarreal MD Work Phone: [facility] 12-13-2021 09:33-0400 Respiratory rate 15 /min Ronaldo Villarreal MD Work Phone: [facility] 12-13-2021 09:33-0400 SaO2% (BldA) [Mass fraction] 98 % Ronaldo Villarreal MD Work Phone: [facility] 12-13-2021 09:33-0400 Systolic blood pressure 133 mm[Hg] Ronaldo Villarreal MD Work Phone: [facility] 12-01-2021 05:50-0400 Diastolic blood pressure 57 mm[Hg] LANA ZAPIEN DO [place] 12-01-2021 05:50-0400 Heart rate 94 /min LANA ZAPIEN DO [place] 12-01-2021 05:50-0400 Respiratory rate 15 /min LANA ZAPIEN DO [place] 12-01-2021 05:50-0400 Systolic blood pressure 116 mm[Hg] LANA ZAPIEN DO [place] 12-01-2021 02:13-0400 Body temperature 100.04 [degF] LANA ZAPIEN DO [place] 12-01-2021 02:13-0400 Diastolic blood pressure 77 mm[Hg] LANA ZAPIEN DO [place] 12-01-2021 02:13-0400 Heart rate 104 /min LANA ZAPIEN DO [place] 12-01-2021 02:13-0400 Respiratory rate 18 /min LANA ZAPIEN DO [place] 12-01-2021 02:13-0400 Systolic blood pressure 151 mm[Hg] LANA ZAPIEN DO [place] 11-30-2021 20:11-0400 Diastolic blood pressure 56 mm[Hg] LANA ZAPIEN DO [place] 11-30-2021 20:11-0400 Heart rate 93 /min LANA ZAPIEN DO [place] 11-30-2021 20:11-0400 Systolic blood pressure 92 mm[Hg] LANA ZAPIEN DO [place] 11-30-2021 18:28-0400 Body temperature 100.4 [degF] LANA ZAPIEN DO [place] 11-30-2021 18:28-0400 Body weight 87.3 kg LANA ZAPIEN DO [place] 11-30-2021 18:28-0400 Heart rate 114 /min LANA ZAPIEN DO [place] 11-30-2021 18:28-0400 Respiratory rate 20 /min LANA ZAPIEN DO [place] 11-29-2021 13:15-0400 Body temperature 97.2 [degF] Chair Bath Work Phone: [facility] 11-29-2021 13:15-0400 Diastolic blood pressure 73 mm[Hg] Chair Bath Work Phone: [facility] 11-29-2021 13:15-0400 Heart rate 82 /min Chair Bath Work Phone: [facility] 11-29-2021 13:15-0400 Respiratory rate 20 /min Chair Bath Work Phone: [facility] 11-29-2021 13:15-0400 Systolic blood pressure 116 mm[Hg] Chair Bath Work Phone: [facility] 03-23-2016 14:49-0400 Weight 78.47 kg Sandra Loomis [facility] Sports Medicine and Orthopaedics Work Phone: Encounters Encounter Date Encounter Type Care Provider Facility Start: 01-24-2025 End: 01-25-2025 Emergency department patient visit Dr. Mariah Atkinson MD Work Phone: -Emergency Department Work Phone: Start: 01-21-2025 ambulatory Fer [place] Facility :[facility] Start: 01-21-2025 Non-patient / Non-visit Fer Ambrose ga DO -[facility] Start: 01-21-2025 End: 01-21-2025 Admission to same day surgery center Fer Sussex DO -Endoscopy Work Phone: Start: 01-21-2025 End: 01-21-[address] Mariah Atkinson MD Work Phone: -Endoscopy Start: 01-20-2025 End: 01-20-2025 Telephone encounter Funmilayo Pope MD Work Phone: [facility] Start: 11-20-2024 End: 11-20-2024 Patient encounter procedure Gianna Nelson [employer]FERENCE [employer] SHOOTER[facility] Work Phone: Start: 11-20-2024 End: 11-20-2024 ambulatory Gianna Nelson Facility:[facility] Start: 10-01-2024 End: 10-01-2024 ambulatory MAULIK DIAMOND-DELMISERT Facility:A Start: 10-01-2024 End: 10-01-2024 Patient encounter procedure MAULIK DIAMOND-BACHERT DO [facility] Start: 09-27-2024 End: 09-27-2024 Emergency department patient visit Dr. Dino Pena MD Work Phone: -Emergency Department Work Phone: Start: 09-12-2024 End: 09-13-2024 Emergency department patient visit Dr. 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 Arthritis & Rheumatology Comment on above: Medication Preauthor ization (Prolia- [facility] Approved [id number] [facility] Medicare/Portal 07.15.24-07.15.25 2 visits) Start: 06-04-2024 End: 06-04-2024 ambulatory PHY WO ID REFERRING Facility:A Start: 06-04-2024 End: 06-04-2024 Patient encounter procedure PHY WO ID REFERRING [facility] Start: 04-08-2024 End: 04-08-2024 Emergency department patient visit Rancho Orozco Facility:[facility] Start: 03-25-2024 ambulatory Bianca Gudla Facility:[facility] Start: 03-23-2024 End: 03-23-2024 Telephone encounter Funmilayo Pope MD Work Phone: [facility] Comment on above: Appointment Start: 03-21-2024 End: 03-22-2024 Emergency department patient visit Oswaldo Lo Facility:[facility] Start: 02-20-2024 End: 03-14-2024 ambulatory Bianca Gudla Facility:[facility] Start: 02-12-2024 ambulatory Beata Liao Facility:[facility] Start: 02-07-2024 End: 02-07-2024 ambulatory Lauren Gelyi Facility:[facility] Start: 02-06-2024 End: 02-12-2024 ambulatory Bianca Gudla Facility:[facility] Start: 11-24-2023 End: 11-24-2023 Emergency department patient visit Dr. Chilango Laughlin Work Phone: [facility]-Emergency Department Work Phone: Start: 11-21-[address] Brenda [facility]aughlin [facility] Work Phone: Start: 11-07-2023 End: 11-12-[address] Chilango Laughlin Work Phone: [facility] Work Phone: Start: 11-07-2023 End: 11-12-[address] Chilango [facility]aughlin [facility] Work Phone: Start: 10-11-2023 End: 10-11-[address] Chilango Laughlin Work Phone: [facility] Work Phone: Start: 10-11-2023 End: 10-11-[address] Chilango Laughlin Work Phone: [facility] Work Phone: Start: 10-10-2023 End: 10-13-[address] Chilango Laughlin Work Phone: [facility] Work Phone: Start: 10-10-2023 End: 10-13-[address] Chilango Laughlin [facility] Work Phone: Start: 10-04-2023 End: 10-05-2023 ambulatory MAULIK العلي Facility:B Start: 10-04-2023 End: 10-04-2023 Patient encounter procedure MAULIK العلي DO [facility] Start: 09-26-2023 Non-patient / Non-visit Dr. Anais Laughlin Work Phone: [facility] Work Phone: Start: 09-23-2023 End: 09-24-2023 ambulatory MAULIK العلي Facility:A Start: 09-20-2023 End: 09-20-2023 ambulatory Chair 3 [facility] Work Phone: Hematology/Oncology Comment on above: Other osteoporosis w ithout current pathological fracture (Primary Dx) Start: 09-19-2023 Non-patient / Non-visit Dr. Anais Laughlin Work Phone: [facility] Work Phone: Start: 09-10-2023 Telephone encounter Funmilayo colunga MD Work Phone: [facility] Comment on above: Results Start: 09-05-2023 Non-patient / Non-visit Dr. Anais Laughlin Work Phone: [facility] Work Phone: Start: 09-05-2023 End: 09-12-[address] Chilango Laughlin Work Phone: [facility] Work Phone: Start: 09-05-2023 End: 09-12-[address] Chilango Laughlin Work Phone: [facility] Work Phone: Start: 08-29-2023 Non-patient / Non-visit Dr. Anais Laughlin Work Phone: [facility] Work Phone: Start: 08-22-2023 Non-patient / Non-visit Dr. Anais Laughlin Work Phone: [facility] Work Phone: Start: 08-15-2023 Non-patient / Non-visit Dr. Anais Laughlin Work Phone: [facility] Work Phone: Start: 08-08-2023 Non-patient / Non-visit Dr. Anais Laughlin Work Phone: [facility] Work Phone: Start: 08-08-2023 End: 08-14-[address] Chilango Laughlin Work Phone: [facility] Work Phone: Start: 08-08-2023 End: 08-14-[address] Chilango Laughlin Work Phone: [facility] Work Phone: Start: 08-01-2023 Non-patient / Non-visit Dr. Anais Laughlin Work Phone: [facility] Work Phone: Start: 07-25-2023 Non-patient / Non-visit Dr. Anais Laughlin Work Phone: [facility] Work Phone: Start: 07-11-2023 Non-patient / Non-visit Dr. Anais Laughlin Work Phone: [facility] Work Phone: Start: 07-11-2023 End: 07-14-[address] Chilango Laughlin Work Phone: [facility] Work Phone: Start: 07-11-2023 End: 07-14-[address] Chilango Laughlin Work Phone: [facility] Work Phone: Start: 06-13-2023 Non-patient / Non-visit Dr. Anais Laughlin Work Phone: [facility] Work Phone: Start: 06-13-2023 End: 06-13-[address] Chilango Laughlin Work Phone: [facility] Work Phone: Start: 06-13-2023 End: 06-13-[address] Chilango Laughlin Work Phone: [facility] Work Phone: Start: 05-30-2023 Non-patient / Non-visit Dr. Anais Laughlin Work Phone: [facility] Work Phone: Start: 05-23-2023 Non-patient / Non-visit Dr. Anais Laughlin Work Phone: [facility] Work Phone: Start: 05-16-2023 Non-patient / Non-visit Dr. Anais Laughlin Work Phone: [facility] Work Phone: Start: 05-02-2023 Non-patient / Non-visit Dr. Bianca Carey [facility] Work Phone: Start: 05-02-2023 End: 05-14-[address] [facility] Start: 05-02-2023 End: 05-14-[address] [facility] Start: 04-25-2023 Non-patient / Non-visit Dr. Bianca Carey [facility] Work Phone: Start: 04-18-2023 Non-patient / Non-visit Dr. Bianca Carey [facility] Work Phone: Start: 04-11-2023 Non-patient / Non-visit Dr. Bianca Carey [facility] Work Phone: Start: 04-11-2023 End: 04-13-[address] [facility] Start: 04-05-2023 End: 04-05-[address] Bianca Palomares [facility] Work Phone: Start: 04-04-2023 Non-patient / Non-visit Dr. Bianca Carey issa [facility] Work Phone: Start: 03-28-2023 Non-patient / Non-visit Dr. Bianca Carey [facility] Work Phone: Start: 03-26-2023 Telephone encounter Funmilayo colunga MD Work Phone: [facility] Arthritis & Rheumatology Comment on above: APPROVED (Lucas ([facility]) APPROVED [id number] 03.26.23 - 03.26.24 for 2 visits [facility] Medicare/Portal) Start: 03-21-2023 Non-patient / Non-visit Dr. Bianca sigala [facility] Work Phone: Start: 03-14-2023 Non-patient / Non-visit Dr. Bianca Carey isas [facility] Work Phone: Start: 03-14-2023 End: 03-14-[address] [facility] Work [facility]: Start: 03-13-2023 Telephone encounter Self Hem atology/Oncology Start: 03-13-2023 End: 03-13-2023 ambulatory Chair 7 [facility] Work Phone: Hematology/Oncology Comment on above: Osteoporosis, unspec ified osteoporosis type, unspecified pathological fracture presence (Primary Dx) Start: 03-07-2023 Non-patient / Non-visit Dr. Bianca Carey issa [facility] Work Phone: Start: 03-06-2023 Telephone encounter Funmilayo colunga MD Work Phone: [facility] Rheumatology and Ar[facility]ritis Comment on above: Orders Start: 03-01-2023 End: 03-01-[address] Bianca Palomares [facility] Work Phone: Start: 02-21-2023 Non-patient / Non-visit Dr. Bianca Carey issa [facility] Work Phone: Start: 02-08-2023 End: 02-08-[address] Chilango Laughlin Work Phone: [facility] Work Phone: Start: 02-07-2023 Non-patient / Non-visit Dr. Anais Laughlin Work Phone: [facility] Work Phone: Start: 02-07-2023 End: 02-11-[address] Chilango Laughlin Work Phone: [facility] Work Phone: Start: 02-07-2023 End: 02-11-[address] Chilango Laughlin [facility] Work Phone: Start: 01-31-2023 Non-patient / Non-visit Dr. Anais Laughlin Work Phone: [facility] Work Phone: Start: 01-24-2023 Non-patient / Non-visit Dr. Anais Laughlin Work Phone: [facility] Work Phone: Start: 01-18-2023 End: 01-18-[address] Chilango Laughlin Work Phone: [facility] Work Phone: Start: 01-17-2023 Non-patient / Non-visit Dr. Anais Laughlin Work Phone: [facility] Work Phone: Start: 01-16-2023 End: 01-16-[address] Chilango Laughlin Work Phone: [facility] Work Phone: Start: 01-11-2023 Non-patient / Non-visit Dr. Anais Laughlin Work Phone: [facility] Start: 01-11-2023 End: 01-11-[address] Chilango Laughlin Work Phone: [facility] Work Phone: Start: 01-11-2023 End: 01-11-[address] Chilango Laughlin Work Phone: [facility] Work Phone: Start: 01-03-2023 Non-patient / Non-visit Dr. Anais Laughlin Work Phone: [facility] Work Phone: Start: 01-02-2023 End: 01-02-[address] Chilango Laughlin Work Phone: [facility] Work Phone: Start: 12-20-2022 Non-patient / Non-visit Dr. Anais Laughlin Work Phone: [facility] Work Phone: Start: 12-18-2022 End: 12-18-[address] Chilango Laughlin Work Phone: [facility] Work Phone: Start: 12-13-2022 Non-patient / Non-visit Dr. Anais Laughlin Work Phone: [facility] Work Phone: Start: 12-06-2022 Non-patient / Non-visit Dr. Anais Laughlin Work Phone: [facility] Start: 12-06-2022 End: 12-12-[address] Chilango Laughlin Work Phone: [facility] Work Phone: Start: 12-06-2022 End: 12-12-[address] Chilango Laughlin [facility] Start: 11-29-2022 Non-patient / Non-visit Dr. Anais Laughlin Work Phone: [facility] Start: 11-22-2022 Non-patient / Non-visit Dr. Anais Laughlin Work Phone: [facility] Start: 10-17-2022 End: 10-17-2022 Emergency department patient visit DR MAKENNA HYATT MD Facility:B Start: 10-17-2022 End: 10-17-2022 Emergency department patient visit DR MAKENNA HYATT MD [facility] Start: 09-13-2022 End: 09-13-2022 Patient encounter procedure Funmilayo Pope MD Work Phone: [facility] Comment on above: Low back pain, unspe cified back pain laterality, unspecified chronicity, unspecified whether sciatica present (Primary Dx); Pain in both lower extremities; Osteoporosis, unspecified osteoporosis type, unspecified pathological fracture presence Start: 09-05-2022 End: 09-05-2022 ambulatory Chair 1 [facility] Comment on above: Other osteoporosis w ithout current pathological fracture (Primary Dx) Start: 05-04-2022 End: 05-04-2022 Patient encounter procedure CHAKA WO ID REFERRING [facility] Start: 04-28-2022 End: 04-28-2022 Emergency department patient visit TAVIA NORRIS MD [facility] Start: 03-07-2022 End: 03-07-2022 ambulatory Bed 1 [facility] Work Phone: Hematology/Oncology Comment on above: Other osteoporosis w ithout current pathological fracture (Primary Dx) Start: 01-31-2022 Telephone encounter Berenice gamez PA-C Work Phone: [facility] Arthritis & Rheumatology Comment on above: Medication Authoriza tion (Prolia - NO PA REQ for medicare B ) Start: 01-31-2022 End: 01-31-2022 Patient encounter procedure Berenice Trung Edmond PA-C Work Phone: [facility] Arthritis & Rheumatology Comment on above: Other osteoporosis w ithout current pathological fracture (Primary Dx); Primary osteoarthritis involving multiple joints; Vitamin D deficiency Start: 01-08-2022 End: 01-08-2022 Patient encounter procedure [facility], [facility] Start: 12-13-2021 End: 12-13-2021 ambulatory Ronaldo Villarreal MD Work Phone: [facility] Comment on above: Procedure Start: 12-13-2021 End: 12-13-2021 Patient encounter procedure Ronaldo Villarreal MD Work Phone: [facility] Start: 11-30-2021 End: 12-01-2021 Emergency department patient visit LANA ZAPIEN DO [place] Start: 11-29-2021 End: 11-29-2021 ambulatory Chair 6 [facility] Work Phone: Hematology/Oncology Comment on above: Other osteoporosis w ithout current pathological fracture (Primary Dx) Start: 11-21-2021 End: 11-21-2021 ambulatory Luis Pagan DO Work Phone: [facility] Start: 11-21-2021 End: 11-21-2021 Patient encounter procedure Luis Darlingty DO Work Phone: [facility] Start: 11-09-2021 Telephone encounter Ronaldo Villarreal MD [facility] Comment on above: Patient Update (NEW PHONE NUMBER) Start: 10-17-2021 Telephone encounter Funmilayo colunga MD Work Phone: [facility] Rheumatology and Arthritis Comment on above: Medication Follow-up Start: 01-01-2017 Ambulatory [facility] Procedures Date Procedure Procedure Detail Performing [...] 03-15-2025 Influenza vaccination Influenza Vacc ine (#1) [facility] Start: 01-25-2025 End: 01-25-[address] [facility] Comment on above: //// prolia *prolia Start: 01-25-2025 [facility] Start: 01-21-2025 Patient discharge [facility] Start: 09-27-2024 [facility] Start: 09-13-2024 [facility] Start: 07-27-2024 End: 07-27-2024 Patient encounter procedure 07/27/2024 1:30 PM [facility] Infusion Center [facility] [address] [place] [address] * prolia [facility] Comment on above: * prolia Start: 07-15-2024 Medicare Advantage Annual Wellness Visit Medicare Advantage Annual Wellness Visit [facility] Start: 03-15-2024 Covid-19 Vaccine ( season) Covid-19 Vaccine () [facility] Start: 03-15-2024 Covid-19 Vaccine ( season) Covid-19 Vaccine ( season) [facility] Start: 03-15-2024 Influenza vaccination Influenza Vacc ine (#1) [facility] Start: 11-24-2023 [facility] Start: 11-24-2023 [facility] Start: 11-24-2023 Brain natriuretic peptide measurement [facility] Start: 07-15-2023 Depression Assessment Depression Ass essment [facility] Start: 03-15-2023 Covid-19 Vaccine ( season) Covid-19 Vaccine ( season) [facility] Start: 03-15-2023 Influenza vaccination [facility] Start: 01-31-2023 BP CONTROLLED (<130/80) BP CONTROLLE D (<130/80) [facility] Start: 07-15-2022 DEPRESSION ASSESSMENT DEPRESSION ASS ESSMENT [facility] Start: 05-31-2022 BP CONTROLLED (<130/80) BP CONTROLLE D (<130/80) [facility] Start: 05-11-2022 Adult depression screening assessment DEPRESSION SCREENING [facility] Start: 03-15-2022 Influenza vaccination [facility] Start: 02-28-2022 Hepatitis B screening URINE ALBUMIN:CREATININE RATIO [facility] Start: 01-31-2022 End: 04-02-2022 25-hydroxyvitamin D3 [Mass/volume] in Serum or Plasma VITAMIN D 25 HYDROXY Lab Routine Vitamin D deficiency Expected: 01/31/2022, Expires: 04/02/2022 [facility] Work Phone: Comment on above: Expected: 01/31/2022 , Expires: 04/02/2022 Start: 2021 RSV Vaccine (1 - 1-d ose 60+ series) RSV Vaccine (1 - 1-dose 60+ series) [facility] Start: 2021 RSV Vaccine (1 - Ris k 60-74 years 1-dose series) RSV Vaccine (1 - Risk 60-74 years 1-dose series) [facility] Start: 01-14-2021 COVID-19 VACCINE (3 - Booster for Pfizer series) COVID-19 VACCINE (3 - Booster for Pfizer series) [facility] Start: 10-12-2020 COVID-19 VACCINE (3 - Booster for Pfizer series) COVID-19 VACCINE (3 - Booster for Pfizer series) [facility] Start: 10-12-2020 COVID-19 VACCINE (3 - Pfizer series) COVID-19 VACCINE (3 - Pfizer series) [facility] Start: 12-22-2017 Colonoscopy COLONOSCOPY [facility] Start: 12-22-2017 COLORECTAL CANCER SCREENING COLORECTAL CANCER SCREENING [facility] Start: 12-22-2017 Screening for malign ant neoplasm of colon [facility] Start: 02-28-2017 End: 02-28-2017 Appointment Appointment [facility] Work Phone: Start: 01-18-2017 End: 01-18-2017 Appointment Appointment [facility] Work Phone: Start: 12-19-2016 End: 12-19-2016 Physical Therapy General Physical Therapy General Rehab [facility], [address] [place] [address], [address] [facility] Work Phone: Start: 12-12-2016 End: 12-12-2016 Appointment Appointment [facility] Work Phone: Start: 11-27-2016 End: 11-27-2016 Appointment Appointment [facility] Work Phone: Start: 11-14-2016 End: 11-14-2016 Appointment Appointment [facility] Work Phone: Start: 09-05-2016 End: 09-05-2016 Physical Therapy General Physical Therapy General Rehab Services, [address] [place] [address], [facility] Work Phone: Start: 08-01-2016 End: 08-01-2016 Physical Therapy General Physical Therapy General Rehab Services, [address] [place] [address], [address] [facility] Work Phone: Start: 07-27-2016 End: 11-23-2016 Ct upper extremity w/o dye CT Upper Extremity [facility] Work Phone: Start: 05-16-2016 End: 06-27-2016 Physical Therapy General Physical Therapy General Rehab Services, [address] [place] [address], [facility] Work Phone: Start: 05-03-2016 End: 11-23-2016 X-ray exam of collar bone X-Ray, Clavicle [facility] Work Phone: Start: 03-23-2016 End: 11-23-2016 X-ray exam of collar bone X-Ray, Clavicle [facility] Work Phone: Start: 08-12-2015 Hepatitis B surface antibody level LDL CHOLESTEROL [facility] Start: 07-03-2015 Glaucoma screening Dilated Retinal E xam [facility] Start: 07-03-2015 Hepatitis C antibody , confirmatory test DILATED RETINAL EXAM [facility] Start: 11-16-2014 3 comp foot exam completed DIABETIC FOOT EXAM [facility] Start: 11-16-2014 Diabetic foot examination Diabetic Foot Exam [facility] Start: 11-10-2014 Hemoglobin A1c measurement HbA1C [facility] Start: 11-10-2014 Hemoglobin A1c/Hemoglobin.total in Blood HBA1C [facility] Start: 11-09-2014 Hepatitis B screening Urine Albumin:Creatinine Ratio [facility] Start: 04-21-2014 Mammography [facility] Start: 04-21-2014 Screening for malign ant neoplasm of breast Mammogram Screening [facility] Start: 10-07-2011 SHINGRIX VACCINE (1 of 2) SHINGRIX VACCINE (1 of 2) [facility] Start: 04-21-2008 PNEUMOCOCCAL (2 - PCV) PNEUMOCOCCAL (2 - PCV) [facility] Start: 04-21-2008 Pneumococcal vaccination [facility] Start: 04-21-2008 Pneumococcal Vaccine : 50+ (2 of 2 - PCV) Pneumococcal Vaccine: 50+ (2 of 2 - PCV) [facility] Start: 2006 COLOGUARD (FIT-DNA) COLOGUARD (FIT-D NA) [facility] Start: [address] COLONOGRAPHY [facility] Start: 2006 FECAL OCCULT BLOOD FECAL OCCULT BLOO D [facility] Start: 2006 Screening for malign ant neoplasm of colon [facility] Start: 2006 SIGMOIDOSCOPY SIGMOIDOSCOPY [facility] Start: 12-14-2004 Urine microalbumin profile [facility] Start: 10-07-1979 ANNUAL PCP TEAM ENVIRONMENTAL PLANNING ENGINEER JIM DISEASE VISIT ANNUAL PCP TEAM CHRONIC DISEASE VISIT [facility] Start: 10-07-1979 Anxiety Screening Anxiety Screening [facility] Start: 10-07-1979 BP CONTROLLED (<130/80) BP CONTROLLE D (<130/80) [facility] Start: 10-07-1979 Depression Screening Depression Scre ening [facility] Start: 10-07-1979 HIV SCREENING HIV SCREENING [facility] Start: 10-07-1979 HIV screening HIV Screening [facility] End: 09-13-2023 25-hydroxyvitamin D3 [Mass/volume] in Serum or Plasma VITAMIN D 25 HYDROXY Lab Routine Osteoporosis, unspecified osteoporosis type, unspecified pathological fracture presence 2 Occurrences starting 09/13/2022 until 09/13/2023 [facility] Work Phone: Comment on above: 2 Occurrences starti ng 09/13/2022 until 09/13/2023 End: 09-13-2023 Comprehensive metabolic 2000 panel - Serum or Plasma COMP METABOLIC PANEL Lab Routine Osteoporosis, unspecified osteoporosis type, unspecified pathological fracture presence 2 Occurrences starting 09/13/2022 until 09/13/2023 [facility] Work Phone: Comment on above: 2 Occurrences starti ng 09/13/2022 until 09/13/2023 Injection single/machining manager trigger point 3/> muscles TRIGGER POINT INJECTION MULTI 3+ MUSCLE GRP Procedures Routine Myofascial pain Ordered: 12/13/2021 [facility] Work Phone: Comment on above: Ordered: 12/13/2021 End: 09-13-2023 Parathyrin.intact [Mass/volume] in Serum or Plasma PTH INTACT BLD Lab Routine Osteoporosis, unspecified osteoporosis type, unspecified pathological fracture presence 2 Occurrences starting 09/13/2022 until 09/13/2023 [facility] Work Phone: Comment on above: 2 Occurrences starti ng 09/13/2022 until 09/13/2023 Patient Education [facility] Work Phone: Patient referral [facility] Work Phone: [facility] Immunizations Immunization Date Immunization Notes Care Provider Alphonse palmer 03-12-2017 influenza virus vacc ine, unspecified formulation Funmilayo Pope MD Work Phone: [facility] 04-22-2014 influenza, seasonal, injectable Funmilayo Pope MD Work Phone: [facility] 04-13-2013 influenza virus vacc ine, unspecified formulation Funmilayo Pope MD Work Phone: [facility] Work Phone: 05-13-2012 influenza virus vacc ine, unspecified formulation Funmilayo Pope MD Work Phone: [facility] 05-09-2010 influenza virus vacc ine, unspecified formulation Funmilayo Pope MD Work Phone: [facility] Work Phone: 05-15-2007 influenza virus vacc ine, unspecified formulation Funmilayo Pope MD Work Phone: [facility] Work Phone: 04-21-2007 pneumococcal polysaccharide vaccine, 23 valent Funmilayo Pope MD Work Phone: [facility] Work Phone: 05-10-2006 influenza virus vacc ine, unspecified formulation Funmilayo Pope MD Work Phone: [facility] Work Phone: 12-13-2004 tetanus and diphther ia toxoids, adsorbed, preservative free, for adult use (2 Lf of tetanus toxoid and 2 Lf of diphtheria toxoid) Funmilayo Pope MD Work Phone: [facility] Work Phone: Payers Date Payer Category Payer Unknown [id number] 2024 Self-pay [id number] 2023 Unknown [id number] 2022 Medicare (Managed Care) [facility] MEDI CARE ADVANTAGE PPO [id number] 2022 Unknown [id number] 2015 Medicaid [facility] MEDICAID [id number] 2015-Present [phone] [address] [place] [address] Medicaid [id number] 2015 Medicaid [id number] 2015 Unknown [id number] 2003 Medicare MEDICARE MEDICAR E A AND B [id number] 2003-Present [phone] [address] [address] [place] [address] Medicare [id number] 2003 Medicare [id number] 1961 Unknown [id number] [id number]. 627 1961 Unknown [id number] [id number]. 627 1961 Unknown [id number] 2.16.840.1.928913.3.579.2. 627 1961 Unknown [id number] 2.16.840.1.508091.3.579.2. 627 1960 Unknown [id number] 2.16.840.1.784481.3.579.2. 627 Medicare [id number] Unknown [id number] 2.16.840.1.428628.3.579.2. 462 Unknown [id number] 2.16.840.1.936341.3.579.2. 462 Unknown [id number] 2.16.840.1.175896.3.579.2. 462 Unknown [id number] 2.16.840.1.069373.3.579.2. 462 Unknown [id number] 2.16.840.1.136855.3.579.2. 462 Unknown [id number] 2.16840.1.480210.3.579.2. 462 Unknown [id number] 2.16.840.1.778051.3.579.2. 462 Unknown [id number] 2.16.840.1.140119.3.579.2. 462 Unknown [id number] 2.16840.1.401386.3.579.2. 462 Unknown [id number] 2.16840.1.591949.3.579.2. 462 Unknown [id number] 2.16840.1.186664.3.579.2. 462 Unknown [id number] [id number]. 462 Social History Date Type Detail Facility Start: 09-12-1994 End: 09-27-2024 Tobacco smoking status [facility] Smokes tobacco daily [facility] Start: 09-12-1994 End: 09-12-2013 History of tobacco use Cigarette Smoker [facility] Start: 02-28-2021 End: 03-13-2023 Cigarettes smoked current (pack per day) - Reported 0.5 [facility] Start: 02-28-2021 Tobacco use and exposure Smokeless tobacco non-user [facility] Start: 09-13-2021 End: 02-28-2022 Alcohol intake Current non-drinker of alcohol (finding) [facility] Start: 02-28-2021 Tobacco Comment ten cig daily currently, off and on for 19 yrs [facility] Start: 1960 Sex Assigned At Not on file [facility] Start: 11-11-2021 End: 03-07-2022 Exposure to SARS-CoV-2 (event) Not sure [facility] Start: 01-17-2019 Tobacco smoking status Heavy t obacco smoker (finding) [place] Start: 1960 Sex Assigned At Female A [facility] Start: 07-29-2021 End: 11-24-2023 Tobacco smoking status NHIS Unknown if ever smoked [facility] Start: 03-08-2019 None [facility] Start: 12-01-2020 Alone [facility] Start: 03-08-2019 Cigarettes [facility] Start: 02-28-2022 End: 03-13-2023 Tobacco use panel [facility] Adult Depression Screening Assessment 5 [facility] Sexual Orientation [facility] Start: 01-07-2019 End: 09-27-2024 Sex Female (finding) [place] Start: 01-21-2025 End: 01-24-2025 Tobacco smoking status NHIS Ex-smoker (finding) [facility] NEGATED: Highlighted row Not [facility] Medical Equipment Procedure Code Equipment Code Equipment Origin al Text Equipment Identifier Dates Replacement of battery of baclofen pump SYNCHROMED PAIN PUMP FDA Start: 02-07-2024 Replacement of battery of baclofen pump SYNCHROMED PAIN PUMP FDA Start: 02-07-2024 Replacement of battery of baclofen pump SYNCHROMED PAIN PUMP FDA Start: 02-07-2024 Test Blood sugar 3x daily. 250.02, insulin dep [id number] Start: 11-17-2009 Comment on above: Test Blood [...] Result Facility 04-28-2022 Functional Status Moderate assistance [facility] 12-01-2021 Functional Status [facility] 09-22-2014 Are you deaf, or do you have serious difficulty hearing No 09/22/2014 9:26 AM EDT Zahra Thurman LPN No [facility] 09-22-2014 Are you blind, or do you have serious difficulty seeing, even when wearing glasses No 09/22/2014 9:26 AM Zahra Espinosa LPN No [facility] 09-22-2014 Do you have serious difficulty walking or climbing stairs No 09/22/2014 9:26 AM EDT Zahra Thurman LPN No [facility] 09-22-2014 Do you have difficul ty dressing or bathing No 09/22/2014 9:26 AM Zahra Espinosa LPN No [facility] 09-22-2014 Because of a physica l, mental, or emotional condition, do you have difficulty doing errands alone such as visiting a physician's office or shopping Yes 09/22/2014 9:26 AM EDZahra Castellano LPN Yes [facility] Mental Status Date Assessment Result Facility 01-21-2025 Cognitive function Voice/Name [facility] Work Phone: 11-24-2023 Cognitive function Level Of Cons ciousness Awake;Alert;Appropriate;Fol lows Commands [facility] Work Phone: 10-17-2022 Mental Status Orientation Oriented x 4 [facility] 10-17-2022 [facility] 12-01-2021 Mental Status [facility] 09-22-2014 Because of a physica l, mental, or emotional condition, do you have serious difficulty concentrating, remembering, or making decisions Yes 09/22/2014 9:26 AM EDT Zahra Thurman LPN Yes [facility] Clinical Notes 02-04-2008 to 01-25-2025 Telephone Encounter - Funmilayo Pope MD - 01/20/2025 9:57 AM EDTTelephone Encounter - Funmilayo Pope MD - 01/20/2025 9:57 AM EDT Note Date & Type Note Facility 01-25-2025 Radiology Diagnostic study note [facility] Imaging Services [address] [place], [place] [id number] Tibia & Fibula 2 Views MR#: [id number] Acct: [id number] Name: MAGNOLIAJULIANA Rep #: [id number] : 1960 F 64 From: Anjelica Elizabeth MD PCP: Mariah Atkinson MD Status: PRE ER Study:Tibia & Fibula 2 Views Date of Exam: 01/25/25 Exam# [id number] Ordering Dr: Jocelyne Orozco DO EXAM: Right [...] Mariah Atkinson MD; Rancho Orozco DO ~ Environmental Health Officer: Signed [facility] 01-25-2025 Radiology Diagnostic study note [facility] Imaging Services [address] [place], [place] [id number] Pelvis 1 or 2 Views MR#: [id number] Acct: [id number] Name: JULIANA MERIDA Rep #: [id number] : 1960 F 64 From: Anjelica Elizabeth MD PCP: Mariah Atkinson MD Status: PRE ER Study:Pelvis 1 or 2 Views Date of Exam: 01/25/25 Exam# [id number] Ordering Dr: Jocelyne Orozco DO PROCEDURE: PELVIS 1 OR 2 VIEWS 01/25/2025 REASON FOR EXAM: FALL TECHNIQUE: PELVIS 1 OR 2 VIEWS COMPARISON: No FINDINGS: Lower lumbar spine degeneration. Remote left femur injury status post orthopedic repair. Intact pelvic ring. RAD/Pelvis 1 or 2 Views IMPRESSION: Intact pelvic ring. Reading Location: [place] [address] CC: Mariah Atkinson MD; Rancho Orozco DO ~ Environmental Health Officer: Signed [facility] 01-25-2025 Radiology Diagnostic study note [facility] Imaging Services [address] [place], [place] [address] Brain/Head without Contrast MR#: [id number] Acct: [id number] Name: JULINAA MERIDA Rep #: [id number] : 1960 F 64 From: Anjelica Elizabeth MD PCP: Mariah Atkinson MD Status: PRE ER Study:Brain/Head without Contrast Date of Exa m: 01/25/25 Exam# [id number] Ordering Dr: Jocelyne Orozco DO PROCEDURE: BRAIN/HEAD [...] IMPRESSION: No acute intracranial findings. Reading Location: [place] [address] CC: Mariah Atkinson MD; Rancho Orozco DO ~ Environmental Health Officer: Signed [facility] 01-21-2025 Consult note [facility] 01-21-2025 Procedure note [facility] 01-21-2025 Procedure note [facility] 01-21-2025 Consult note [facility] 01-21-2025 History and physi jeromy note [facility] 01-21-2025 Note [facility] Medical Records Department [address] [place] [address] History Physical Exam 01/21/25 0836 MR#: [id number] Acct: [id number] Name: JULIANA MERIDA Rep #: [id number] : 1960 64 From: Fer Simmons DO PCP: Mariah Atkinson MD Status:[place] [facility] Location: [place] [address] HPI - General General Date of Admission: 01/21/25 Date of Service: 01/21/25 HPI Narrative JULIANA MERIDA, is a 64 F who presentsWANDMario MERIDA, is a 64 F who presents to the office today for establishment with [facility] for concerns of abdominal epigastric pain, heartburn, and constipation. She resides at [facility] due to history of stroke affecting [...] emesis, abdominal cramping, diarrhea, hematochezia, and melena. [facility] Medical History History of pressure injury of skin Gastric reflux History of pain when walking Leg cramps Lives in jail Hx of fracture of hip Wears glasses [...] 4 mg PO (more content not included)... [facility] 01-21-2025 Consult note [facility] 01-20-2025 Telephone encounter Note ----- Message from Haylee Montana RN sent at 01/18/2025 9:13 AM EDT ----- Please enter and sign therapy plan for Prolia for Saturday01/25/25. Thanks Haylee [facility] Work Phone: 01-20-2025 Miscellaneous Notes ----- Message from Haylee Montana RN sent at 01/18/2025 9:13 AM EDT ----- Please enter and sign therapy plan for Prolia for Saturday01/25/25. Thanks Haylee documented in this encounter [facility] 11-20-2024 Evaluation note Diagnosis Onset Date Resolution Constipation acute November 20 2:17pm Epigastric abdominal pain acute November 20, 2024 2: 17pm Esophageal reflux chronic November 2:17pm Constipation acute January 21, 025 7:19am Epigastric abdominal pain acute January 21, 2025 7:19am [facility] Work Phone: 1(883) 835-296903-25-2025 Consult note Author Yosef Camp [facility] Note Date/Time January 21, 2025 9:13 am [facility] Medical Records Department [address] [place] [address] Anesthesia Postop Eval I 01/21/25911 MR#: [id number] Acct: [id number] Name: JULIANA MERIDA Rep #:[id number] : 1960 64 From: Yosef Camp PCP: Mariah Atkinson MD Status:REG SDC Y Race: C Location: [place] [address] Anesthesia: Postop Eval I Current Vital Signs [...] Yosef Nolasco Signature: Date CC: ~ Signed [facility] Work Phone: 1(567) 296-520903-16-2025 Radiology Diagnostic study note [facility] Imaging Services [address] [place] [address] Abdomen/Pelvis without Cont MR#: [id number] Acct: [id number] Name: JULIANA MERIDA Rep #: [id number] : 1960 F 63 From: Kimo Loaiza MD PCP: Mariah Atkinson MD Status: REG ER Study:Abdomen/Pelvis without Cont Date of Exa m: 09/27/24 Exam# [id number] Ordering Dr: Graham Cochran DO PROCEDURE: ABDOMEN/PELVIS [...] abdominal and pelvic viscera. There is now cura-qrmaodc-lqcz-right mild basilar patchy ill-defined ground- glass opacities [...] dilation or free air. Status post appendectomy. [place] artifact from spinal stimulator device. Aortoiliac atherosclerotic calcification. No abdominal aortic aneurysm. The bladder appears within limits. No free fluid seen. Status post hysterectomy. The ovaries appearwithin limits on noncontrast imaging. [place] artifact from left femoral gamma nail. Small fat containing left inguinalhernia without stranding again noted. CT/Abdomen/Pelvis without Cont IMPRESSION: There is now gopf-gmxrpcx-pydt-right mild basilar patchy ill-defined ground- glass opacities [...] the liver. Status post cholecystectomy. Reading Location: [id number] CC: Mariah Atkinson MD; Dr. Gregorio Cochran, DO ~ Environmental Health Officer: Signed [facility]01-02-2025 Telephone encounter Note* Telephone Encounter - Sandra Dunn - 07/16/2024 9:43 AM EST Marlene Lagunas Approved [id number] [facility] Medicare/Portal 07.15.24-07.15.25 2 visits Sandra Corado Mastic Worker [facility]01-02-2025 Miscellaneous Notes* Telephone Encounter - Sandra Dunn - 07/16/2024 9:43 AM EST Marlene Lagunas Approved [id number] [facility] Medicare/Portal 07.15.24-07.15.25 2 visits Sandra Corado Mastic Worker documented in [facility]-2024 Telephone encounter Note * Telephone Encounter - [...] know patient was a no show today!! [facility]09-09-2024 Miscellaneous Notes* Telephone Encounter - Valeria Sevilla [...] a no show today!! documented in this encounterR[facility]09-09-2024 Telephone encounter Note * Telephone Encounter - Valeria Kapoor MA - 03/23/2024 11:16 AM EDT error [facility]09-09-2024 Miscellaneous Notes* Telephone Encounter - Valeria Sevilla MA - 03/23/2024 11:16 AM EDT error documented in this encounterRiverview [facility] Institute05-12-2024 Discharge summary Author [facility] November 24, 2023 8:14pm Note Date/Time November 24, 2023 5:05p m [facility] Medical Records Department [address] [place] [address] Emergency Department Summary 11/24/23 MR#: [id number] Acct: [id number] Name: JULIANA MERIDA Rep #:[id number] : 1960 63 From: Dino Pena MD PCP: Bianca Palomares MD Status:REG ER Location: ED HPI History of Present Illness Chief Complaint: Edema Informant: patient Narrative Narrative: 63-year-old patient in a jail presenting with multiple complaints on herown behalf. [...] no orthopnea no new cough or fevers. [facility] Medical History Anxiety Cerebral vascular disease Chronic [...] mg rectal suppository (Dulcolax (bisacodyl)) 10 mg CO Q8H PRN 12/18/22 [History Last Taken Unknown] [...] % (Auto) 69.2 Lymph % (Auto) 20.5 [place] % (Auto) 8.4 Eos % (Auto) 0.6 [...] Clarity Clear Urine pH 7.0 Ur Specific [place] 1.010 Urine Protein Negative Urine Glucose (UA) [...] [Dulcolax (bisacodyl)] 10 mg suppository 10 mg CO Q8H PRN epinephrine [EpiPen] 0.3 mg/0.3 mL [...] Dr. Newman different dosing desired. Disposition Disposition: [facility] What to do if you have Problems For any increased pain, shortness of breath, bleeding, nausea or vomiting, chestpain, or any unexpected problems, contact your Primary Care Provider. Call [facility] ([phone]) or report to the closest Emergency Room. Call 911 if necessary. 11/24/232013 <Electronically signed by Dino Pena MD> Cosigner Signature (if applicable): CC: Bianca Palomares MD ~ Signed [facility] Work Phone: 1(524) 868-503004-25-2024 Progress note Author [facility] November 07, 2023 12:35pm Note Date/Time November 07, 2023 12: 35pm [facility] [address] [place] [address] Progress Note - Wound Care 11/07/23 1224 MR#: [id number] Acct: [id number] Name: JULIANA MERIDA YANELI Rep #:[id number] : 1960 63 From: Karthikeyan tavares DPM PCP: Bianca Pal[facility]res MD [facility] Location: History of Present Illness [...] Start: 10/17/23 09:30 Freq: Status: Active Protocol: BlinkbuggyBRIANDA Activity Type Activity Date Activity User E-sign [...] service Follow-up Visit Follow-up Visit Follow-up Visit (Physician/ONCOLOGY TECHNICIAN (Physician/ONCOLOGY TECHNICIAN (Physician/ONCOLOGY TECHNICIAN ) ) ) Arrival Mode Wheelchair Wheelchair [...] Visit Information Type of service Follow-up Visit (Physician/ONCOLOGY TECHNICIAN ) Arrival Mode Wheelchair Transfer Assistance None [...] Under -Granulation Amt Medium (34-66%) -Granulation Quality [place] -Slough/Fibrin Yes -Necrosis Amt Large (67-100%) -Necrotic [...] Recorded Date Recorded By Document 10/17/23 10:13 [facility] [employer] 10/17/23 10:37 [facility] Document 10/24/23 10:01 [facility] [employer] 10/24/23 10:15 [facility] Document 10/31/23 09:59 [facility] Desktop 10/31/23 10:10 [facility] Document 11/07/23 10:10 [facility] Desktop 11/07/23 10:27 [employer] 10/17/23 10/24/23 10/31/23 10:13 10:01 09:59 Wound [...] Desktop 10/17/23 10:52 GM Document 10/24/23 10:22 [facility] Desktop 10/24/23 10:23 BMF Document 10/31/23 11:54 DL [id number] 10/31/23 11:56 DL Document 11/07/23 10:31 KW [...] Summary of Care Provided Yes Facility Type Care Home Care [facility] Care Facility Facility Orders Sent Yes [...] disease, next appointment 11/20/23. Pain: May take gaim-daj-mfiboap Tylenol for discomfort Host factors: DM type II with peripheral polyneuropathy, MRSA positive cultures,edema, chronic tobacco abuse. I answered all the patient's questions. To return to the wound healing center in 1 week or call sooner if the patient has any questions or concerns. 11/07/23 1234 <Electronically signed by Karthikeyan Grove DPM> Cosigner Signature (if applicable): CC: ~ Signed [facility] Work Phone: 1(202) 596-400904-18-2024 Progress note Author Karthikeyan Grove [facility] October 31, 2023 12:37pm Note Date/Time October 31, 2023 12: 26pm [facility] Wound Healing Center [address] [place] [address] Progress Note - Wound Care 10/31/23 1222 MR#: [id number] Acct: [id number] Name: JULIANA MERIDA YANELI Rep #:[id number] : 1960 63 From: Karthikeyan tavares DPM [...] service Follow-up Visit Follow-up Visit Follow-up Visit (Physician/ONCOLOGY TECHNICIAN (Physician/ONCOLOGY TECHNICIAN (Physician/ONCOLOGY TECHNICIAN ) ) ) Arrival Mode Wheelchair Wheelchair [...] Recorded Date Recorded By Document 10/17/23 10:13 [facility] 10/17/23 10:37 [facility] Document 10/24/23 10:01 [employer] 10/24/23 10:15 [facility] Document 10/31/23 09:59 [employer] 10/31/23 10:10 [employer] 10/17/23 10/24/23 10/31/23 10:13 10:01 09:59 Wound [...] 10:51 Desktop 10/17/23 10:52 Document 10/24/23 10:22 [facility] Desktop 10/24/23 10:23 [facility] Document 10/31/23 11:54 DL [id number] 10/31/23 11:56 DL 10/17/23 10/24/23 10/31/23 10:51 [...] Summary of Care Provided Yes Facility Type [facility] Care Care Home Care Facility Facility Orders Sent Yes Assessment/Plan [...] disease, next appointment 11/20/23. Pain: May take rstk-qhx-qiauuzz Tylenol for discomfort Host factors: DM type II with peripheral polyneuropathy, MRSA positive cultures,edema, chronic tobacco abuse. I answered all the patient's questions. To return to the wound healing center in 1 week or call sooner if the patient has any questions or concerns. 10/31/23 1237 <Electronically signed by Karthikeyan Grove DPM> Cosigner Signature (if applicable): CC: ~ Signed [facility] Work Phone: 1(631) 601-681204-11-2024 Progress note Author Karthikeyan Grove [facility] October 24, 2023 11:03am Note Date/Time October 24, 2023 10: 01am [facility] [address] [place] [address] Progress Note - Wound Care 10/24/23 1000 MR#: [id number] Acct: [id number] Name: JULIANA MERIDA YANELI Rep #:[id number] : 1960 63 From: Karthikeyan tavares DPM [...] Type of service Follow-up Visit Follow-up Visit (Physician/ONCOLOGY TECHNICIAN (Physician/ONCOLOGY TECHNICIAN ) ) Arrival Mode Wheelchair Wheelchair Patient [...] Recorded Date Recorded By Document 10/17/23 09:32 WA Desktop 10/17/23 09:40 WA Document 10/24/23 09:47 KW Desktop 10/24/23 09:55 [...] Recorded Date Recorded By Document 10/17/23 10:13 [facility] [employer] 10/17/23 10:37 [facility] 10/17/23 10:13 Wound Center Nurse 2 [...] referral to infectious disease. Pain: May take xlij-dsw-kkogegv Tylenol for discomfort Host factors: DM type II with peripheral polyneuropathy, MRSA positive cultures,edema, chronic tobacco abuse. I answered all the patient's questions. To return to the wound healing center in 1 week or call sooner if the patient has any questions or concerns. 10/24/23 1103 <Electronically signed by Karthikeyan Grove DPM> Cosigner Signature (if applicable): CC: ~ Signed [facility] Work Phone: 1(100) 402-185904-04-2024 Progress note Author Karthikeyan Grove [facility] October 17, 2023 7:55pm Note Date/Time October 17, 2023 10:4 2am [facility] [address] [place] [address] Progress Note - Wound Care 10/17/23 1038 MR#: [id number] Acct: [id number] Name: JULIANA MERIDA YNAELI Rep #:[id number] : 1960 63 From: Karthikeyan tavares DPM [...] Visit Information Type of service Follow-up Visit (Physician/ONCOLOGY TECHNICIAN ) Arrival Mode Wheelchair Patient Identification Verified [...] Recorded Date Recorded By Document 10/17/23 09:32 [facility] Desktop 10/17/23 09:40 WA 10/17/23 09:32 Wound Center Nurse 1 #1 [...] Recorded Date Recorded By Document 10/17/23 10:13 [facility] Desktop 10/17/23 10:37 [facility] 10/17/23 10:13 Wound Center Nurse 2 [...] referral to infectious disease. Pain: May take hnny-lcd-sxyebqp Tylenol for discomfort Host factors: DM type II with peripheral polyneuropathy, MRSA positive cultures,edema, chronic tobacco abuse. I answered all the patient's questions. To return to the wound healing center in 1 week or call sooner if the patient has any questions or concerns. 10/17/231954 <Electronically signed by Karthikeyan Grove DPM> Cosigner Signature (if applicable): CC: ~ Signed [facility] Work Phone: 1(994) 833-831003-28-2024 Progress note Author Karthikeyan Grove [facility] October 10, 2023 6:59pm Note Date/Time October 10, 2023 10: 34am [facility] [address] [place] [address] Progress Note - Wound Care 10/10/23 1031 MR#: [id number] Acct: [id number] Name: JULIANA MERIDA Rep #:[id number] : 1960 63 From: Karthikeyan tavares DPM [...] in bowel habit reported. Progress of Wound: Olri ulcer maceration and break down. Patient states [...] service Follow-up Visit Follow-up Visit Follow-up Visit (Physician/ONCOLOGY TECHNICIAN (Physician/ONCOLOGY TECHNICIAN (Physician/ONCOLOGY TECHNICIAN ) ) ) Arrival Mode Wheelchair Wheelchair [...] Visit Information Type of service Follow-up Visit (Physician/ONCOLOGY TECHNICIAN ) Arrival Mode Wheelchair Transfer Assistance None [...] (34-66%) Medium (34-66%) Small (1-33%) -Granulation Quality [place] -Slough/Fibrin Yes Yes -Necrosis Amt Medium (34-66%) [...] Recorded Date Recorded By Document 09/19/23 09:53 [employer] 09/19/23 09:59 Document 09/26/23 10:37 [employer] 09/26/23 10:39 Document 10/03/23 10:18 [facility] Desktop 10/03/23 10:30 [facility] 09/19/23 09/26/23 10/03/23 09:53 10:37 10:18 [...] 09/26/23 11:14 RB Document 10/03/23 11:49 DL [id number] 10/03/23 11:50 DL 09/19/23 09/26/23 10/03/23 10:17 [...] hospital for xray as ordered Facility Type Care Home Care Facility Orders Sent Yes Assessment/Plan Assessment/Plan [...] evaluated Patient seen on behalf of Dr. Laughlni who is out of office today. I [...] Recommended referral to infectiousdisease. Pain: May take updp-vwn-mdrqhhq Tylenol for discomfort Host factors: DM type II with peripheral polyneuropathy, MRSA positive cultures,edema, chronic tobacco abuse. I answered all the patient's questions. To return to the wound healing center in 1 week or call sooner if the patient has any questions or concerns. 10/10/231858 <Electronically signed by Karthikeyan Grove DPM> Cosigner Signature (if applicable): CC: ~ Signed [facility] Work Phone: 1(793) 269-380203-21-2024 History and physical note Author Karthikeyan Grove [facility] October 03, 2023 1:23pm Note Date/Time October 03, 2023 10: 09am [facility] [address] [place] [address] H&P Exam - Wound Care 10/03/23 1008 MR#: [id number] Acct: [id number] Name: JULIANA MERIDA Rep #:[id number] : 1960 62 From: Karthikeyan tavares DPM [...] fever or otherwise feeling of unwell reported. [facility] Medical History Anxiety Cerebral vascular disease Chronic [...] mg rectal suppository (Dulcolax (bisacodyl)) 10 mg CO Q8H PRN 12/18/22 [History Last Taken Unknown] [...] service Follow-up Visit Follow-up Visit Follow-up Visit (Physician/ONCOLOGY TECHNICIAN (Physician/ONCOLOGY TECHNICIAN (Physician/ONCOLOGY TECHNICIAN ) ) ) Arrival Mode Wheelchair Wheelchair [...] (34-66%) Medium (34-66%) Small (1-33%) -Granulation Quality [place] -Slough/Fibrin Yes Yes -Necrosis Amt Medium (34-66%) [...] Recorded Date Recorded By Document 09/19/23 10:17 [employer] 09/19/23 10:18 Document 09/26/23 11:13 RB Desktop [...] Recommended referral to infectiousdisease. Pain: May take lqxf-bpo-agphaqt Tylenol for discomfort Host factors: DM type II with peripheral polyneuropathy, MRSA positive cultures,edema, chronic tobacco abuse. I answered all the patient's questions. To return to the wound healing center in 1 week or call sooner if the patient has any questions or concerns. 10/03/23 1323 <Electronically signed by Karthikeyan Grove DPM> Cosigner Signature (if applicable): CC: ~ Signed [facility] Work Phone: 1(252) 850-731303-14-2024 Progress note Author Chilango Laughlin [facility] September 26, 2023 2:01pm Note Date/Time September 26, 2023 12: 14pm [facility] W[facility]aling Center [address] [place] [address] Progress Note - Wound Care 09/26/23 1209 MR#: [id number] Acct: [id number] Name: JULIANA MERIDA YANELI Rep #:[id number] : 1960 62 From: Chilango joy MD [...] 11:34 09/26/23 11:34 Charges/Coding Procedures Integumentary 111xxx-113xx: 40212 Carla subq tissue 20 sq cm/< Physical [...] Type of service Follow-up Visit Follow-up Visit (Physician/ONCOLOGY TECHNICIAN (Physician/ONCOLOGY TECHNICIAN ) ) Arrival Mode Wheelchair Wheelchair Transfer [...] Date Recorded By Document 09/19/23 09:30 RB [employer] 09/19/23 09:32 RB Document 09/26/23 10:12 RB [...] Amt Medium (34-66%) Medium (34-66%) -Granulation Quality [place] -Slough/Fibrin Yes Yes -Necrosis Amt Medium (34-66%) Medium (34-66%) -Necrotic Tissue Type Adherent Slough Adherent Slough -Structure Exposed N/A N/A -Texture (Lori-wound Skin Appearance) Assessed Scarring -Moisture (Lori-wound Skin Appearance) Assessed Maceration -Color (Lori-wound Skin Appearance) Assessed, Assessed, Hemosiderin Hemosiderin Staining Staining -Temperature (Loir-wound Skin No Abnormality No Abnormality Appearance) (Pt [...] 1 week. This note was generated with Familytication software. It may contain incorrectwords, spelling, and punctuation that were not noted in checking the note beforesigning. 09/26/23 1401 <Electronically signed by Chilango Laughlin MD> Cosigner Signature (if applicable): CC: ~ Signed [facility] Work Phone: 1(797) 834-290703-07-2024 Progress note Author therese Laughlin [facility] September 19, 2023 10:17am Note Date/Time September 19, 2023 10:1 0am [facility] [address] [place] [address] Progress Note - Wound Care 09/19/23 1005 MR#: [id number] Acct: [id number] Name: JULIANA MERIDA YANELI Rep #:[id number] : 1960 62 From: Chilango joy MD [...] 09:30 09/19/23 09:30 Charges/Coding Procedures Integumentary 111xxx-113xx: 15135 Carla subq tissue 20 sq cm/< Physical [...] Visit Information Type of service Follow-up Visit (Physician/ONCOLOGY TECHNICIAN ) Arrival Mode Wheelchair Transfer Assistance None [...] Under -Granulation Amt Medium (34-66%) -Granulation Quality [place] -Slough/Fibrin Yes -Necrosis Amt Medium (34-66%) -Necrotic [...] 1 week. This note was generated with Revee dictation software. It may contain incorrectwords, spelling, and punctuation that were not noted in checking the note beforesigning. 09/19/23 1017 <Electronically signed by Chilango Laughlin MD> Cosigner Signature (if applicable): CC: ~ Signed [facility] Work Phone: 1(958) 569-179303-05-2024 Miscellaneous Notes* Telephone Encounter - Funmilayo Pope MD - 09/17/2023 2:59 PM EST Needs allergies updated [facility] Progress note Author Chilango Laughlin [facility] September 05, 2023 12:52pm Note Date/Time September 05, 2023 10:04am [facility] [address] [place] [address] Progress Note - Wound Care 09/05/23 0958 MR#: [id number] Acct: [id number] Name: JULIANA MERIDA YANELI Rep #:[id number] : 1960 62 From: Chilango joy MD [...] anaerobic bacteria isolated. Charges/Coding Procedures Integumentary 111xxx-113xx: 44940 Carla subq tissue 20 sq cm/< Physical [...] service Follow-up Visit Follow-up Visit Follow-up Visit (Physician/ONCOLOGY TECHNICIAN (Physician/ONCOLOGY TECHNICIAN (Physician/ONCOLOGY TECHNICIAN ) ) ) Arrival Mode Wheelchair Wheelchair [...] Visit Information Type of service Follow-up Visit (Physician/ONCOLOGY TECHNICIAN ) Arrival Mode Wheelchair Transfer Assistance None [...] Small (1-33%) Medium (34-66%) -Granulation Quality [place] -Slough/Fibrin Yes Yes -Necrosis Amt Medium (34-66%) [...] Attached -Granulation Amt Medium (34-66%) -Granulation Quality [place] -Slough/Fibrin Yes -Necrosis Amt Medium (34-66%) -Necrotic [...] 1 week. This note was generated with Familytication software. It may contain incorrectwords, spelling, and punctuation that were not noted in checking the note beforesigning. 09/05/23 1252 <Electronically signed by Chilango Laughlin MD> Cosigner Signature (if applicable): CC: ~ Signed [facility] Work Phone: 1(260) 413-938302-16-2024 Progress note Author Chilango Laughlin [facility] August 30, 2023 1:48pm Note Date/Time August 29, 2023 10:09am [facility] [address] [place] [address] Progress Note - Wound Care 08/29/23 1008 MR#: [id number] Acct: [id number] Name: JULIANA MERIDA Rep #:[id number] : 1960 62 From: Chilango joy MD [...] anaerobic bacteria isolated. Charges/Coding Procedures Integumentary 111xxx-113xx: 30868 Carla subq tissue 20 sq cm/< Physical [...] Desktop 08/22/23 08:59 DL Document 08/29/23 09:30 [facility] Desktop 08/29/23 09:34 [facility] 08/15/23 08/22/23 08/29/23 08:53 08:51 09:30 - Today's Visit Information Type of service Follow-up Visit Follow-up Visit Follow-up Visit (Physician/ONCOLOGY TECHNICIAN (Physician/ONCOLOGY TECHNICIAN (Physician/ONCOLOGY TECHNICIAN ) ) ) Arrival Mode Wheelchair Wheelchair [...] Small (1-33%) Medium (34-66%) -Granulation Quality Red [place] -Slough/Fibrin Yes Yes -Necrosis Amt Medium (34-66%) [...] 1 week. This note was generated with Revee dictation software. It may contain incorrectwords, spelling, and punctuation that were not noted in checking the note beforesigning. 08/30/23 1348 <Electronically signed by Chilango Laughlin MD> Cosigner Signature (if applicable): CC: ~ Signed [facility] Work Phone: 1(439) 725-190302-08-2024 Progress note Author Chilango Laughlin [facility] August 22, 2023 9:39am Note Date/Time August 22, 2023 9 :33am [facility] [address] [place] [address] Progress Note - Wound Care 08/22/2328 MR#: [id number] Acct: [id number] Name: JULIANA MERIDA Rep #:[id number] : 1960 62 From: Chilango joy MD [...] Method Room Air Charges/Coding Procedures Integumentary 111xxx-113xx: 44757 Carla subq tissue 20 sq cm/< Physical [...] Recorded Date Recorded By Document 08/15/23 08:53 [facility] Desktop 08/15/23 08:59 [facility] Document 08/22/23 08:51 DL Desktop 08/22/23 08:59 DL 08/15/23 08/22/23 08:53 08:51 - Today's Visit Information Type of service Follow-up Visit Follow-up Visit (Physician/ONCOLOGY TECHNICIAN (Physician/ONCOLOGY TECHNICIAN ) ) Arrival Mode Wheelchair Wheelchair Transfer [...] Medium (34-66%) Small (1-33%) -Granulation Quality Red [place] -Slough/Fibrin Yes -Necrosis Amt Medium (34-66%) Small [...] 1 week. This note was generated with Familytication software. It may contain incorrectwords, spelling, and punctuation that were not noted in checking the note beforesigning. 08/22/23 0954 <Electronically signed by Chilango Laughlin MD> Cosigner Signature (if applicable): CC: ~ Signed [facility] Work Phone: 1(539) 911-903602-01-2024 Progress note Author Chilango Laughlin [facility] August 15, 2023 9:38am Note Date/Time August 15, 2023 9 :38am [facility] [address] [place] [address] Progress Note - Wound Care 08/15/23 0936 MR#: [id number] Acct: [id number] Name: JULIANA MERIDA Rep #:[id number] : 1960 62 From: Chilango joy MD [...] Method Room Air Charges/Coding Procedures Integumentary 111xxx-113xx: 76825 Carla subq tissue 20 sq cm/< Physical [...] Recorded Date Recorded By Document 08/15/23 08:53 [facility] Desktop 08/15/23 08:59 [facility] 08/15/23 08:53 - Today's Visit Information Type of service Follow-up Visit (Physician/ONCOLOGY TECHNICIAN ) Arrival Mode Wheelchair Transfer Assistance None [...] Recorded Date Recorded By Document 08/15/23 08:53 [facility] Desktop 08/15/23 08:59 [facility] 08/15/23 08:53 Wound Center Nurse 1 [...] 1 week. This note was generated with Revee dictation software. It may contain incorrectwords, spelling, and punctuation that were not noted in checking the note beforesigning. 08/15/23937 <Electronically signed by Chilango Laughlin MD> Cosigner Signature (if applicable): CC: ~ Signed [facility] Work Phone: 1(886) 641-292001-25-2024 Progress note Author Chilango Laughlin [facility] August 08, 2023 9:32am Note Date/Time August 08, 2023 9 :26am [facility] [address] [place] [address] Progress Note - Wound Care 08/08/23919 MR#: [id number] Acct: [id number] Name: JULIANA MERIDA YANELI Rep #:[id number] : 1960 62 From: Chilango joy MD [...] anaerobic bacteria isolated. Charges/Coding Procedures Integumentary 111xxx-113xx: 70419 Carla subq tissue 20 sq cm/< Physical [...] DL 07/18/23 07/25/23 08/01/23 08:50 08:49 08:39 [facility] Visit Information Type of service Follow-up Visit Follow-up Visit Follow-up Visit (Physician/ONCOLOGY TECHNICIAN (Physician/ONCOLOGY TECHNICIAN (Physician/ONCOLOGY TECHNICIAN ) ) ) Arrival Mode Wheelchair Wheelchair [...] Pain Free? Yes Yes Yes 08/08/23 09:02 [facility] Visit Information Type of service Follow-up Visit (Physician/ONCOLOGY TECHNICIAN ) Arrival Mode Wheelchair Transfer Assistance None [...] Recorded Date Recorded By Document 07/18/23 08:50 [facility] Desktop 07/18/23 08:58 [facility] Document 07/25/23 08:49 [facility] Desktop 07/25/23 08:56 [...] Thickened -Granulation Amt Small (1-33%) -Granulation Quality Pale,[place] -Slough/Fibrin -Necrosis Amt Small (1-33%) -Necrotic Tissue [...] BMF Edit Result 08/01/23 09:52 BMF (1) [id number] 08/01/23 14:12 GM (1) #1 R Lat [...] Desktop 07/25/23 09:23 GM Document 08/01/23 10:06 [facility] Desktop 08/01/23 10:07 [facility] 07/18/23 07/25/23 08/01/23 09:48 09:22 10:06 [...] of Care Provided Yes Yes 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 This note was generated with Familytication software. It may contain incorrectwords, spelling, and punctuation that were not noted in checking the note beforesigning. 08/08/23 0932 <Electronically signed by Chilango Laughlin MD> Cosigner Signature (if applicable): CC: ~ Signed [facility] Work Phone: 1(228) 773-933401-18-2024 Progress note Author Chilango Laughlin [facility] August 01, 2023 6:49pm Note Date/Time August 01, 2023 1 0:52am [facility] [address] [place] [address] Progress Note - Wound Care 08/01/23 1048 MR#: [id number] Acct: [id number] Name: JULIANA MERIDA Rep #:[id number] : 1960 62 From: Chilango joy MD [...] anaerobic bacteria isolated. Charges/Coding Procedures Integumentary 111xxx-113xx: 28783 Carla subq tissue 20 sq cm/< Physical [...] service Follow-up Visit Follow-up Visit Follow-up Visit (Physician/ONCOLOGY TECHNICIAN (Physician/ONCOLOGY TECHNICIAN (Physician/ONCOLOGY TECHNICIAN ) ) ) Arrival Mode Wheelchair Wheelchair [...] Recorded Date Recorded By Document 07/18/23 08:50 [facility] Desktop 07/18/23 08:58 [facility] Document 07/25/23 08:49 [facility] Desktop 07/25/23 08:56 [facility] Document 08/01/23 08:39 [facility] Desktop 08/01/23 08:49 [facility] 07/18/23 07/25/23 08/01/23 [...] 09:05 Desktop 07/25/23 09:11 Document 08/01/23 09:52 [facility] Desktop 08/01/23 09:57 [facility] 07/18/23 07/25/23 08/01/23 09:32 09:05 09:52 [...] 09:22 Desktop 07/25/23 09:23 Document 08/01/23 10:06 [facility] Desktop 08/01/23 10:07 [facility] 07/18/23 07/25/23 08/01/23 09:48 09:22 10:06 [...] of Care Provided Yes Yes Facility Type Care Home Care Facility Assessment/Plan Assessment/Plan (1) Chronic [...] 1 week. This note was generated with Revee dictation software. It may contain incorrectwords, spelling, and punctuation that were not noted in checking the note beforesigning. 08/01/23 1849 <Electronically signed by Chilango Laughlin MD> Cosigner Signature (if applicable): CC: ~ Signed [facility] Work Phone: [phone]) 635-348401-11-2024 Progress note Author Chilango Laughlin [facility] July 25, 2023 10:31am Note Date/Time July 25, 2023 1 0:31am [facility] [address] [place] [address] Progress Note - Wound Care 07/25/23 1028 MR#: [id number] Acct: [id number] Name: JULIANA MERIDA YANELI Rep #:[id number] : 1960 62 From: Chilango joy MD [...] anaerobic bacteria isolated. Charges/Coding Procedures Integumentary 111xxx-113xx: 42197 Carla subq tissue 20 sq cm/< Physical [...] Recorded Date Recorded By Document 07/18/23 08:50 [facility] Desktop 07/18/23 08:58 BM Document 07/25/23 08:49 [facility] Desktop 07/25/23 08:56 [facility] 07/18/23 07/25/23 08:50 08:49 - Today's Visit Information Type of service Follow-up Visit Follow-up Visit (Physician/ONCOLOGY TECHNICIAN (Physician/ONCOLOGY TECHNICIAN ) ) Arrival Mode Wheelchair Wheelchair Transfer [...] Recorded Date Recorded By Document 07/18/23 08:50 [facility] Desktop 07/18/23 08:58 [facility] Document 07/25/23 08:49 [facility] Desktop 07/25/23 08:56 [facility] 07/18/23 07/25/23 08:50 08:49 Wound Center Nurse [...] 1 week. This note was generated with Revee dictation software. It may contain incorrectwords, spelling, and punctuation that were not noted in checking the note beforesigning. 07/25/23 1031 <Electronically signed by Chilango Laughlin MD> Cosigner Signature (if applicable): CC: ~ Signed [facility] Work Phone: [phone]) 810-673512-28-2023 Progress note Author therese Laughlin [facility] July 11, 2023 9:25am Note Date/Time July 11, 2023 9:21am [facility] [address] [place] [address] Progress Note - Wound Care 07/11/23 0919 MR#: [id number] Acct: [id number] Name: JULIANA MERIDA YANELI Rep #:[id number] : 1960 62 From: Chilango joy MD [...] Method Room Air Charges/Coding Procedures Integumentary 111xxx-113xx: 52566 Carla subq tissue 20 sq cm/< Physical [...] Type of service Nurse-only Follow-up Visit Visit (Physician/ONCOLOGY TECHNICIAN ) Arrival Mode Wheelchair Wheelchair Transfer Assistance [...] Recorded Date Recorded By Document 07/04/23 08:52 [facility] Desktop 07/04/23 09:03 [facility] Document 07/11/23 08:53 Desktop 07/11/23 09:03 [...] Amt Large (67-100%) Small (1-33%) -Granulation Quality [place] -Slough/Fibrin Yes -Necrosis Amt Small (1-33%) Medium [...] she's touch wearing is dated for 06/21. [facility] has not changed it since then [...] BMF Edit Result 07/04/23 08:52 BMF (1) [id number] 07/05/23 06:38 PL (1) Left - Multi-Layered [...] 1 week. This note was generated with Familytication software. It may contain incorrectwords, spelling, and punctuation that were not noted in checking the note beforesigning. 07/11/23 5860 <Electronically signed by Chilango Laughlin MD> Cosigner Signature (if applicable): CC: ~ Signed [facility] Work Phone: [phone]) 815-583011-30-2023 Progress note Author Chilango Laughlin [facility] June 13, 2023 10:53am Note Date/Time June 13, 2023 10:53am [facility] [address] [place] [address] Progress Note - Wound Care 06/13/23 1048 MR#: [id number] Acct: [id number] Name: JULIANA MERIDA Rep #:[id number] : 1960 62 From: Chilango joy MD [...] Method Room Air Charges/Coding Procedures Integumentary 111xxx-113xx: 13148 Carla subq tissue 20 sq cm/< Physical [...] Recorded Date Recorded By Document 05/16/23 09:08 [email or web address] Laptop 05/16/23 09:15 JF Document 05/23/23 09:50 [facility] Desktop 05/23/23 09:56 [facility] Document 05/30/23 09:16 DL Desktop 05/30/23 09:30 DL Document 06/13/23 09:52 [facility] Desktop 06/13/23 09:57 [facility] 05/16/23 05/23/23 05/30/23 09:08 09:50 09:16 - Today's Visit Information Type of service Follow-up Visit Follow-up Visit Follow-up Visit (Physician/ONCOLOGY TECHNICIAN (Physician/ONCOLOGY TECHNICIAN (Physician/ONCOLOGY TECHNICIAN ) ) ) Arrival Mode Wheelchair Wheelchair [...] Visit Information Type of service Follow-up Visit (Physician/ONCOLOGY TECHNICIAN ) Arrival Mode Wheelchair Transfer Assistance None [...] (67-100%) Small (1-33%) -Granulation Quality Red Red [place] -Slough/Fibrin Yes No -Necrosis Amt Small (1-33%) [...] BMF Edit Result 05/23/23 10:36 BMF (1) [id number] 05/23/23 11:07 BM[facility] Document 05/30/23 10:04 DL [...] Summary of Care Provided Yes Facility Type Care Home Care Facility 06/13/23 10:21 Wound Care [...] Clinical Summary of Care Provided Facility Type Care Home Care Facility Assessment/Plan Assessment/Plan (1) Chronic [...] 2 weeks. This note was generated with Revee dictation software. It may contain incorrectwords, spelling, and punctuation that were not noted in checking the note beforesigning. 06/13/23 1053 <Electronically signed by Chilango Laughlin MD> Cosigner Signature (if applicable): CC: ~ Signed [facility] Work Phone: [phone]) 711-840911-16-2023 Progress note Author Chilango Laughlin [facility] May 30, 2023 10:15am Note Date/Time May 30, 2023 10:15am [facility] [address] [place] [address] Progress Note - Wound Care 05/30/23 1013 MR#: [id number] Acct: [id number] Name: JULIANA MERIDA Rep #:[id number] : 1960 62 From: Chilango joy MD [...] Method Room Air Charges/Coding Procedures Integumentary 111xxx-113xx: 58426 Carla subq tissue 20 sq cm/< Physical [...] Recorded Date Recorded By Document 05/16/23 09:08 [email or web address] Laptop 05/16/23 09:15 [email or web address] Document 05/23/23 09:50 BM Desktop 05/23/23 09:56 BM Document 05/30/23 09:16 DL Desktop 05/30/23 09:30 DL 05/16/23 05/23/23 05/30/23 09:08 09:50 09:16 - Today's Visit Information Type of service Follow-up Visit Follow-up Visit Follow-up Visit (Physician/ONCOLOGY TECHNICIAN (Physician/ONCOLOGY TECHNICIAN (Physician/ONCOLOGY TECHNICIAN ) ) ) Arrival Mode Wheelchair Wheelchair [...] Recorded Date Recorded By Document 05/16/23 09:08 [email or web address] Laptop 05/16/23 09:15 JF Document 05/23/23 09:50 [...] (67-100%) Small (1-33%) -Granulation Quality Red Red [place] -Slough/Fibrin Yes No -Necrosis Amt Small (1-33%) [...] Recorded Date Recorded By Document 05/16/23 09:25 [employer] 05/16/23 09:30 Document 05/23/23 10:16 Desktop 05/23/23 [...] Desktop 05/16/23 09:39 KW Document 05/23/23 10:36 [facility] Desktop 05/23/23 10:37 [facility] Edit Result 05/23/23 10:36 BMF (1) [id number] 05/23/23 11:07 [facility] Document 05/30/23 10:04 DL [...] Summary of Care Provided Yes Facility Type 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 This note was generated with Revee dictation software. It may contain incorrectwords, spelling, and punctuation that were not noted in checking the note beforesigning. 05/30/23 1015 <Electronically signed by Chilango Laughlin MD> Cosigner Signature (if applicable): CC: ~ Signed [facility] Work Phone: [phone]) 247-838911-09-2023 Progress note Author Chilango Laughlin [facility] May 23, 2023 10:23am Note Date/Time May 23, 2023 1 0:23am [facility] [address] [place] [address] Progress Note - Wound Care 05/23/23 1021 MR#: [id number] Acct: [id number] Name: JULIANA MERIDA Rep #:[id number] : 1960 62 From: Chilango joy MD [...] Method Room Air Charges/Coding Procedures Integumentary 111xxx-113xx: 97013 Carla subq tissue 20 sq cm/< Physical [...] Document 05/23/23 09:50 BM Desktop 05/23/23 09:56 [facility] 05/16/23 05/23/23 09:08 09:50 WC - Today's Visit Information Type of service Follow-up Visit Follow-up Visit (Physician/ONCOLOGY TECHNICIAN (Physician/ONCOLOGY TECHNICIAN ) ) Arrival Mode Wheelchair Wheelchair Transfer [...] Appearance) Assessed,Dry/ Assessed, Scaly Maceration,Dry/ Scaly -Color (Loir-wound Skin Appearance) Assessed Assessed -Temperature (Lori-wound Skin [...] 1 week. This note was generated with Familytication software. It may contain incorrectwords, spelling, and punctuation that were not noted in checking the note beforesigning. 05/23/23 1023 <Electronically signed by Chilango Laughlin MD> Cosigner Signature (if applicable): CC: ~ Signed [facility] Work Phone: [phone]) 749-335811-02-2023 Progress note Author Chilango Laughlin [facility] May 16, 2023 9:37am Note Date/Time May 16, 2023 9 :38am [facility] [address] [place] [address] Progress Note - Wound Care 05/16/23 0930 MR#: [id number] Acct: [id number] Name: JULIANA MERIDA Rep #:[id number] : 1960 62 From: Chilango joy MD [...] 09:08 05/16/23 09:08 Charges/Coding Procedures Integumentary 111xxx-113xx: 49605 Carla subq tissue 20 sq cm/< Physical [...] Visit Information Type of service Follow-up Visit (Physician/ONCOLOGY TECHNICIAN ) Arrival Mode Wheelchair Patient Identification Verified [...] Cosigner Signature (if applicable): CC: ~ Signed [facility] Work Phone: 1(729) 556-932110-19-2023 Progress note Author Chilango Laughlin [facility] May 02, 2023 10:11am Note Date/Time May 02, 2023 1 0:11am [facility] [address] [place] [address] Progress Note - Wound Care 05/02/23 1007 MR#: [id number] Acct: [id number] Name: JULIANA MERIDA Rep #:[id number] : 1960 62 From: Chilango joy MD PCP: Bianac Palomares MD Status:REG RCR Location: History of [...] Method Room Air Charges/Coding Procedures Integumentary 111xxx-113xx: 12910 Carla subq tissue 20 sq cm/< Physical [...] Desktop 04/18/23 09:26 RB Document 04/25/23 08:57 [facility] Desktop 04/25/23 09:02 [facility] Document 05/02/23 09:16 [facility] Desktop 05/02/23 09:21 [facility] 04/18/23 04/25/23 05/02/23 09:24 08:57 09:16 - Today's Visit Information Type of service Follow-up Visit Follow-up Visit Follow-up Visit (Physician/ONCOLOGY TECHNICIAN (Physician/ONCOLOGY TECHNICIAN (Physician/ONCOLOGY TECHNICIAN ) ) ) Arrival Mode Wheelchair Wheelchair [...] Desktop 04/18/23 09:26 RB Document 04/25/23 08:57 [facility] Desktop 04/25/23 09:02 [facility] Document 05/02/23 09:16 [facility] Desktop 05/02/23 09:21 [facility] 04/18/23 04/25/23 05/02/23 09:24 08:57 09:16 Wound [...] (1-33%) None Present (0 %) -Granulation Quality [place] Red -Slough/Fibrin Yes Yes Yes -Necrosis Amt [...] 09:50 Laptop 04/18/23 09:50 Document 04/25/23 09:41 [facility] Desktop 04/25/23 09:42 [facility] Document 05/02/23 09:44 [facility] Desktop 05/02/23 09:45 [facility] 04/18/23 04/25/23 05/02/23 09:50 09:41 09:44 [...] Summary of Care Provided Yes Facility Type 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 This note was generated with Revee dictation software. It may contain incorrectwords, spelling, and punctuation that were not noted in checking the note beforesigning. 05/02/23 1011 <Electronically signed by Chilango Laughlin MD> Cosigner Signature (if applicable): CC: ~ Signed [facility] Work Phone: [phone]) 994-776310-12-2023 Progress note Author Chilango Laughlin [facility] April 25, 2023 1:18pm Note Date/Time April 25, 2023 1 :18pm [facility] [address] [place] [address] Progress Note - Wound Care 04/25/23 1317 MR#: [id number] Acct: [id number] Name: JULIANA MERIDA YANELI Rep #:[id number] : 1960 62 From: Chilango joy MD [...] Method Room Air Charges/Coding Procedures Integumentary 111xxx-113xx: 14790 Carla subq tissue 20 sq cm/< Physical [...] Type of service Follow-up Visit Follow-up Visit (Physician/ONCOLOGY TECHNICIAN (Physician/ONCOLOGY TECHNICIAN ) ) Arrival Mode Wheelchair Wheelchair Transfer [...] Desktop 04/18/23 09:26 RB Document 04/25/23 08:57 [facility] Desktop 04/25/23 09:02 BM 04/18/23 04/25/23 09:24 [...] Amt Medium (34-66%) Small (1-33%) -Granulation Quality [place] Red -Slough/Fibrin Yes Yes -Necrosis Amt Medium [...] 09:50 Laptop 04/18/23 09:50 Document 04/25/23 09:41 [facility] Desktop 04/25/23 09:42 [facility] 04/18/23 04/25/23 09:50 09:41 Wound Care [...] Summary of Care Provided Yes 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 This note was generated with Familytication software. It may contain incorrectwords, spelling, and punctuation that were not noted in checking the note beforesigning. 04/25/23 1318 <Electronically signed by Chilango Laughlin MD> Cosigner Signature (if applicable): CC: ~ Signed [facility] Work Phone: [phone]) [phone] Progress note Author Chilango Laughlin [facility] April 18, 2023 9:57am Note Date/Time April 18, 2023 9: 57am [facility] [address] [place] [address] Progress Note - Wound Care 04/18/23 0955 MR#: [id number] Acct: [id number] Name: JULIANA MERIDA YANELI Rep #:[id number] : 1960 62 From: Chilango joy MD [...] 09:24 04/18/23 09:24 Charges/Coding Procedures Integumentary 111xxx-113xx: 84526 Carla subq tissue 20 sq cm/< Physical [...] Visit Information Type of service Follow-up Visit (Physician/ONCOLOGY TECHNICIAN ) Arrival Mode Wheelchair Transfer Assistance None [...] Attached -Granulation Amt Medium (34-66%) -Granulation Quality [place] -Slough/Fibrin Yes -Necrosis Amt Medium (34-66%) -Necrotic [...] 1 week. This note was generated with Familytication software. It may contain incorrectwords, spelling, and punctuation that were not noted in checking the note beforesigning. 04/18/23956 <Electronically signed by Chilango Laughlin MD> Cosigner Signature (if applicable): CC: ~ Signed [facility] Work Phone: [phone]) [phone] Miscellaneous Notes* Telephone Encounter - Layton Mastic WorkerLori - 03/26/2023 9:44 AM EDT Lucas Sanchez) APPROVED [id number] 03.26.23 - 03.26.24 for 2 visits [facility] Medicare/Portal Lori Traylor Mastic Worker documented [facility]08[facility]30-2023 Miscellaneous Notes* Telephone Encounter - Gianna Grullon - 03/13/2023 2:05 PM EDT Pt was registered but upon check in system was giving error for Medicare AB- tried to run several times and error ; associate tried as well ; found that pt had possible new insurance in November through [facility]. Pt paperwork on her info sheet was same that we had scanned in August. Called [facility] they were stumped as well, sent me to the business intelligence etl developer who is reviewing it. She isto call me back. Pending documented in this encounterRiverview [facility] Institute08-23-2023 Miscellaneous Notes* Telephone Encounter - Funmilayo Pope MD - 03/06/2023 3:41 PM EDT ----- Message from Haylee Jules RN sent at 03/06/2023 9:31 AM EDT ----- Please enter new CAM order for Prolia. Current order is >1 yr old. Pt's appt Tuesday 03/13. Thanks Haylee documented in this encounterRiverview [facility] Institute07-27-2023 Progress note Author Chilango Laughlin [facility] February 07, 2023 11:52am Note Date/Time February 07, 2023 11:3 5am [facility] [address] [place] [address] Progress Note - Wound Care 02/07/23 1135 MR#: [id number] Acct: [id number] Name: JULIANA MERIDA YANELI Rep #:[id number] : 1960 62 From: Chilango joy MD [...] Method Room Air Charges/Coding Procedures Integumentary 150xxx-152xx: 03675 Skin sub graft trnk/arm/leg Physical Exam Const [...] Date Recorded By Document 01/17/23 09:59 JF [id number] 01/17/23 10:00 JF Document 01/24/23 09:02 KW [id number] 01/24/23 09:20 KW Document 01/31/23 08:45 RB [id number] 01/31/23 08:51 RB Document 02/07/23 09:16 RB [id number] 02/07/23 09:17 RB 01/17/23 01/24/23 01/31/23 09:59 09:02 08:45 WC - Today's Visit Information Type of service Follow-up Visit Follow-up Visit Follow-up Visit (Physician/ONCOLOGY TECHNICIAN (Physician/ONCOLOGY TECHNICIAN (Physician/ONCOLOGY TECHNICIAN ) ) ) Arrival Mode Wheelchair Wheelchair [...] Visit Information Type of service Follow-up Visit (Physician/ONCOLOGY TECHNICIAN ) Arrival Mode Wheelchair Transfer Assistance None [...] Recorded Date Recorded By Document 01/17/23 09:59 [id number] 01/17/23 10:00 Document 01/24/23 09:02 KW [id number] 01/24/23 09:20 KW Document 01/31/23 08:45 RB [id number] 01/31/23 08:51 RB Document 02/07/23 09:16 RB [id number] 02/07/23 09:17 RB 01/17/23 01/24/23 01/31/23 09:59 [...] Small (1-33%) Medium (34-66%) -Granulation Quality Red [place] -Slough/Fibrin Yes -Necrosis Amt Medium (34-66%) Small [...] Date Recorded By Document 01/17/23 10:11 MW [id number] 01/17/23 10:20 MW Document 01/24/23 09:52 MW [id number] 01/24/23 09:54 MW Document 01/31/23 09:28 MW [id number] 01/31/23 09:36 MW Document 02/07/23 10:00 MW [id number] 02/07/23 10:08 MW 01/17/23 01/24/23 01/31/23 10:11 [...] Date 11/13/27 11/13/27 12/14/27 -Product Lot Number [id number] 001 -Percent Used 100 100 100 -Lot number of Saline Used [id number] -Bleeding Controlled with Pressure Pressure Pressure -Treatment [...] Disc -Expiration Date 11/13/27 -Product Lot Number [id number] -Percent Used 100 -Lot number of Saline Used [id number] -Bleeding Controlled with Pressure -Treatment Response Procedure [...] Recorded Date Recorded By Document 01/17/23 12:06 [id number] 01/17/23 12:07 JF Document 01/24/23 10:01 JF [id number] 01/24/23 10:02 JF Document 01/31/23 09:49 RB [id number] 01/31/23 09:50 RB Document 02/07/23 10:22 RB [id number] 02/07/23 10:23 RB 01/17/23 01/24/23 01/31/23 12:06 [...] Stable Ambulatory Status Wheelchair Wheelchair Wheelchair Transportation [employer] Medication Reconcilliation completed & Yes Yes No [...] 2 weeks. This note was generated with Revee dictation software. It may contain incorrectwords, spelling, and punctuation that were not noted in checking the note beforesigning. 02/07/23 1152 <Electronically signed by Chilango Laughlin MD> Cosigner Signature (if applicable): CC: ~ Signed [facility] Work Phone: [phone]) 347-256607-20-2023 Progress note Author Chilango Laughlin [facility] January 31, 2023 10:02am Note Date/Time January 31, 2023 10:0 2am [facility] [address] [place] [address] Progress Note - Wound Care 01/31/23 1000 MR#: [id number] Acct: [id number] Name: JULIANA MERIDA YANELI Rep #:[id number] : 1960 62 From: Chilango joy MD [...] Method Room Air Charges/Coding Procedures Integumentary 150xxx-152xx: 48079 Skin sub graft trnk/arm/leg Physical Exam Const [...] Date Recorded By Document 01/17/23 09:59 JF [id number] 01/17/23 10:00 JF Document 01/24/23 09:02 KW [id number] 01/24/23 09:20 KW Document 01/31/23 08:45 RB [id number] 01/31/23 08:51 RB 01/17/23 01/24/23 01/31/23 09:59 09:02 08:45 - Today's Visit Information Type of service Follow-up Visit Follow-up Visit Follow-up Visit (Physician/ONCOLOGY TECHNICIAN (Physician/ONCOLOGY TECHNICIAN (Physician/ONCOLOGY TECHNICIAN ) ) ) Arrival Mode Wheelchair Wheelchair [...] Date Recorded By Document 01/17/23 09:59 JF [id number] 01/17/23 10:00 JF Document 01/24/23 09:02 KW [id number] 01/24/23 09:20 KW Document 01/31/23 08:45 RB [id number] 01/31/23 08:51 RB 01/17/23 01/24/23 01/31/23 09:59 [...] Small (1-33%) Medium (34-66%) -Granulation Quality Red [place] -Slough/Fibrin Yes -Necrosis Amt Medium (34-66%) Small [...] Date Recorded By Document 01/17/23 10:11 MW [id number] 01/17/23 10:20 MW Document 01/24/23 09:52 MW [id number] 01/24/23 09:54 MW Document 01/31/23 09:28 MW [id number] 01/31/23 09:36 MW 01/17/23 01/24/23 01/31/23 10:11 [...] Date 11/13/27 11/13/27 12/14/27 -Product Lot Number [id number] 002 001 -Percent Used 100 100 100 -Lot number of Saline Used [id number] -Bleeding Controlled with Pressure Pressure Pressure -Treatment [...] Recorded Date Recorded By Document 01/17/23 12:06 [id number] 01/17/23 12:07 Document 01/24/23 10:01 [id number] 01/24/23 10:02 Document 01/31/23 09:49 [id number] 01/31/23 09:50 01/17/23 01/24/23 01/31/23 12:06 10:01 [...] Ambulatory Status Wheelchair Wheelchair Wheelchair Transportation Private [employer] Medication Reconcilliation completed & Yes Yes No [...] 1 week. This note was generated with Revee dictation software. It may contain incorrectwords, spelling, and punctuation that were not noted in checking the note beforesigning. 01/31/23 1002 <Electronically signed by Chilango Laughlin MD> Cosigner Signature (if applicable): CC: ~ Signed [facility] Work Phone: [phone]) 216-747407-13-2023 Progress note Author Chilango Laughlin [facility] January 24, 2023 11:28am Note Date/Time January 24, 2023 11:2 8am [facility] [address] [place] [address] Progress Note - Wound Care 01/24/23 1125 MR#: [id number] Acct: [id number] Name: JULIANA MERIDA YANELI Rep #:[id number] : 1960 62 From: Chilango joy MD [...] Method Room Air Charges/Coding Procedures Integumentary 150xxx-152xx: 59760 Skin sub graft trnk/arm/leg Physical Exam Const [...] Date Recorded By Document 01/17/23 09:59 JANICE [id number] 01/17/23 10:00 JF Document 01/24/23 09:02 DARCY [id number] 01/24/23 09:20 KW 01/17/23 01/24/23 09:59 09:02 WC - Today's Visit Information Type of service Follow-up Visit Follow-up Visit (Physician/ONCOLOGY TECHNICIAN (Physician/ONCOLOGY TECHNICIAN ) ) Arrival Mode Wheelchair Wheelchair Patient [...] Date Recorded By Document 01/17/23 09:59 JF [id number] 01/17/23 10:00 JF Document 01/24/23 09:02 KW [id number] 01/24/23 09:20 KW 01/17/23 01/24/23 09:59 09:02 [...] Medium (34-66%) Small (1-33%) -Granulation Quality Red [place] -Slough/Fibrin Yes -Necrosis Amt Medium (34-66%) Small [...] Date Recorded By Document 01/17/23 10:11 MW [id number] 01/17/23 10:20 MW Document 01/24/23 09:52 MW [id number] 01/24/23 09:54 MW 01/17/23 01/24/23 10:11 09:52 [...] -Expiration Date 11/13/27 11/13/27 -Product Lot Number [id number] 002 -Percent Used 100 100 -Lot number of Saline Used [id number] -Bleeding Controlled with Pressure Pressure -Treatment Response [...] Date Recorded By Document 01/17/23 12:06 JANICE [id number] 01/17/23 12:07 Document 01/24/23 10:01 [id number] 01/24/23 10:02 01/17/23 01/24/23 12:06 10:01 Wound [...] Stable Ambulatory Status Wheelchair Wheelchair Transportation Private [employer] Medication Reconcilliation completed & Yes Yes provided [...] 1 week. This note was generated with Revee dictation software. It may contain incorrectwords, spelling, and punctuation that were not noted in checking the note beforesigning. 01/24/23 1128 <Electronically signed by Chilango Laughlin MD> Cosigner Signature (if applicable): CC: ~ Signed [facility] Work Phone: [phone]) [phone] Progress note Author Chilango Laughlin [facility] January 17, 2023 12:32pm Note Date/Time January 17, 2023 12:29 pm [facility] [address] [place] [address] Progress Note - Wound Care 01/17/23 1226 MR#: [id number] Acct: [id number] Name: JULIANA MERIDA Rep #:[id number] : 1960 62 From: Chilango joy MD [...] 09:59 01/17/23 09:59 Charges/Coding Procedures Integumentary 150xxx-152xx: 60645 Skin sub graft trnk/arm/leg Physical Exam Const [...] Date Recorded By Document 01/17/23 09:59 JANICE [id number] 01/17/23 10:00 JANICE 01/17/23 09:59 RUY - Today's Visit Information Type of service Follow-up Visit (Physician/ONCOLOGY TECHNICIAN ) Arrival Mode Wheelchair Patient Identification Verified [...] Recorded Date Recorded By Document 01/17/23 09:59 [id number] 01/17/23 10:00 01/17/23 09:59 Wound Center Nurse [...] Recorded Date Recorded By Document 01/17/23 10:11 [id number] 01/17/23 10:20 MW 01/17/23 10:11 Wound Center [...] Disc -Expiration Date 11/13/27 -Product Lot Number [id number] -Percent Used 100 -Bleeding Controlled with [...] Date Recorded By Document 01/17/23 12:06 JANICE [id number] 01/17/23 12:07 JANICE 01/17/23 12:06 Wound Care [...] 1 week. This note was generated with Revee dictation software. It may contain incorrectwords, spelling, and punctuation that were not noted in checking the note beforesigning. 01/17/23 1232 <Electronically signed by Chilango Laughlin MD> Cosigner Signature (if applicable): CC: ~ Signed [facility] Work Phone: [phone]) 603-576606-30-2023 Progress note Author Beata Pardo [facility] January 11, 2023 5:30pm Note Date/Time January 11, 2023 5:30 pm [facility] [address] [place] [address] Progress Note - Wound Care 01/11/23 1723 MR#: [id number] Acct: [id number] Name: JULIANA MERIDA Rep #:[id number] : 1960 62 From: Beata HILLIARD PCP: [...] Method Room Air Charges/Coding Procedures Integumentary 150xxx-152xx: 12396 Skin sub graft trnk/arm/leg Physical Exam Const [...] Recorded Date Recorded By Document 12/13/22 09:39 [facility] [id number] 12/13/22 09:42 [facility] Document 12/20/22 09:48 [facility] [id number] 12/20/22 09:59 BM Document 01/03/23 09:05 [facility] [id number] 01/03/23 09:16 BM Document 01/11/23 13:25 PL [id number] 01/11/23 13:35 PL 12/13/22 12/20/22 01/03/23 09:39 09:48 09:05 - Today's Visit Information Type of service Follow-up Visit Follow-up Visit Follow-up Visit (Physician/ONCOLOGY TECHNICIAN (Physician/ONCOLOGY TECHNICIAN (Physician/ONCOLOGY TECHNICIAN ) ) ) Arrival Mode Wheelchair Wheelchair [...] WILL TAKE PAIN MEDS UPON RETURN TO [facility] 01/11/23 13:25 - Today's Visit Information Type of service Follow-up Visit (Physician/ONCOLOGY TECHNICIAN ) Arrival Mode Wheelchair Transfer Assistance None [...] Recorded Date Recorded By Document 12/13/22 09:39 [facility] [id number] 12/13/22 09:42 [facility] Document 12/20/22 09:48 [facility] [id number] 12/20/22 09:59 [facility] Document 01/03/23 09:05 [facility] [id number] 01/03/23 09:16 [facility] 12/13/22 12/20/22 01/03/23 09:39 09:48 09:05 [...] Date Recorded By Document 12/13/22 09:53 MW [id number] 12/13/22 10:02 MW Document 12/20/22 10:48 MW [id number] 12/20/22 10:58 MW Document 01/03/23 10:08 MW [id number] 01/03/23 10:17 MW Document 01/11/23 15:55 PL [id number] 01/11/23 15:56 PL 12/13/22 12/20/22 01/03/23 09:53 [...] Date 09/13/27 10/14/27 10/14/27 -Product Lot Number [id number] 001 006 -Percent Used 100 100 100 -Lot number of Saline Used [id number] -Bleeding Controlled with Pressure Pressure Pressure -Treatment [...] Disc -Expiration Date 10/14/27 -Product Lot Number [id number] -Percent Used 100 -Lot number of [...] Date Recorded By Document 12/13/22 10:17 DL [id number] 12/13/22 10:18 DL Document 12/20/22 11:45 DL [id number] 12/20/22 11:46 DL Document 01/03/23 10:33 [facility] [id number] 01/03/23 10:34 [facility] Document 01/11/23 14:04 RB [id number] 01/11/23 14:05 RB 12/13/22 12/20/22 01/03/23 10:17 [...] Clinical Summary of Care Provided Facility Type Crowning Hammer Operator Care Crowning Hammer Operator Care Crowning Hammer Operator Care Facility Facility Facility Orders Sent [...] as scheduled. This note was generated with Familytication software. It may contain incorrectwords, spelling, and punctuation that were not noted in checking the note beforesigning. 01/11/23 6100 <Electronically signed by Beata HILLIARD> Cosigner Signature (if applicable): CC: ~ Signed [facility] Work Phone: [phone]) 477-310506-22-2023 Progress note Author Chilango Laughlin [facility] January 03, 2023 1:45pm Note Date/Time January 03, 2023 10:4 3am [facility] [address] [place] [address] Progress Note - Wound Care 01/03/23 1037 MR#: [id number] Acct: [id number] Name: JULIANA MERIDA Rep #:[id number] : 1960 62 From: Chilango joy MD [...] Method Room Air Charges/Coding Procedures Integumentary 150xxx-152xx: 99645 Skin sub graft trnk/arm/leg Physical Exam Const [...] Recorded Date Recorded By Document 12/13/22 09:39 [facility] [id number] 12/13/22 09:42 [facility] Document 12/20/22 09:48 [facility] [id number] 12/20/22 09:59 [facility] Document 01/03/23 09:05 [facility] [id number] 01/03/23 09:16 [facility] 12/13/22 12/20/22 01/03/23 09:39 09:48 09:05 - Today's Visit Information Type of service Follow-up Visit Follow-up Visit Follow-up Visit (Physician/ONCOLOGY TECHNICIAN (Physician/ONCOLOGY TECHNICIAN (Physician/ONCOLOGY TECHNICIAN ) ) ) Arrival Mode Wheelchair Wheelchair [...] WILL TAKE PAIN MEDS UPON RETURN TO [facility] WC - Nurse 1 - General Ulcer Measurement Start: 12/13/22 09:39 Freq: Status: Active Protocol: Activity Type Activity Date Activity User E-sign Co-sign Detail Recorded Client Recorded Date Recorded By Document 12/13/22 09:39 [facility] [id number] 12/13/22 09:42 [facility] Document 12/20/22 09:48 [facility] [id number] 12/20/22 09:59 [facility] Document 01/03/23 09:05 [facility] [id number] 01/03/23 09:16 [facility] 12/13/22 12/20/22 01/03/23 09:39 09:48 09:05 [...] Date Recorded By Document 12/13/22 09:53 MW [id number] 12/13/22 10:02 MW Document 12/20/22 10:48 MW [id number] 12/20/22 10:58 MW Document 01/03/23 10:08 MW [id number] 01/03/23 10:17 MW 12/13/22 12/20/22 01/03/23 09:53 [...] Date 09/13/27 10/14/27 10/14/27 -Product Lot Number [id number] 001 006 -Percent Used 100 100 100 -Lot number of Saline Used [id number] -Bleeding Controlled with Pressure Pressure Pressure -Treatment [...] Date Recorded By Document 12/13/22 10:17 DL [id number] 12/13/22 10:18 DL Document 12/20/22 11:45 DL [id number] 12/20/22 11:46 DL Document 01/03/23 10:33 [facility] [id number] 01/03/23 10:34 BM 12/13/22 12/20/22 01/03/23 10:17 [...] Private Auto Private Auto F Facility Type Crowning Hammer Operator Care Crowning Hammer Operator Care Care Home Care Facility Facility Facility Orders Sent [...] with me. This note was generated with Revee dictation software. It may contain incorrectwords, spelling, and punctuation that were not noted in checking the note beforesigning. 01/03/23 1345 <Electronically signed by Chilango Laughlin MD> Cosigner Signature (if applicable): CC: ~ Signed [facility] Work Phone: [phone]) 724-874806-08-2023 Progress note Author therese Laughlin [facility] December 20, 2022 12:33pm Note Date/Time December 20, 2022 12:33 pm [facility] [address] [place] [address] Progress Note - Wound Care 12/20/22 1223 MR#: [id number] Acct: [id number] Name: JULIANA MERIDA YANELI Rep #:[id number] : 1960 62 From: Chilango joy MD [...] Method Room Air Charges/Coding Procedures Integumentary 150xxx-152xx: 05136 Skin sub graft trnk/arm/leg Physical Exam Const [...] Recorded Date Recorded By Document 12/13/22 09:39 [facility] [id number] 12/13/22 09:42 [facility] Document 12/20/22 09:48 [facility] [id number] 12/20/22 09:59 [facility] 12/13/22 12/20/22 09:39 09:48 - Today's Visit Information Type of service Follow-up Visit Follow-up Visit (Physician/ONCOLOGY TECHNICIAN (Physician/ONCOLOGY TECHNICIAN ) ) Arrival Mode Wheelchair Wheelchair Transfer [...] WILL TAKE PAIN MEDS UPON RETURN TO [facility] WC - Nurse 1 - General Ulcer Measurement Start: 12/13/22 09:39 Freq: Status: Active Protocol: Activity Type Activity Date Activity User E-sign Co-sign Detail Recorded Client Recorded Date Recorded By Document 12/13/22 09:39 [facility] [id number] 12/13/22 09:42 [facility] Document 12/20/22 09:48 [facility] [id number] 12/20/22 09:59 [facility] 12/13/22 12/20/22 09:39 09:48 Wound Center [...] Date Recorded By Document 12/13/22 09:53 MW [id number] 12/13/22 10:02 MW Document 12/20/22 10:48 MW [id number] 12/20/22 10:58 MW 12/13/22 12/20/22 09:53 10:48 [...] -Expiration Date 09/13/27 10/14/27 -Product Lot Number [id number] 001 -Percent Used 100 100 -Lot number of Saline Used [id number] -Bleeding Controlled with Pressure Pressure -Treatment Response [...] Date Recorded By Document 12/13/22 10:17 DL [id number] 12/13/22 10:18 DL Document 12/20/22 11:45 DL [id number] 12/20/22 11:46 DL 12/13/22 12/20/22 10:17 11:45 [...] Transportation Private Auto Private Auto Facility Type Care Home Care Crowning Hammer Operator Care Facility Facility Orders Sent Yes [...] if needed. This note was generated with Familytication software. It may contain incorrectwords, spelling, and punctuation that were not noted in checking the note beforesigning. 12/20/22 1233 <Electronically signed by Chilango Laughlin MD> Cosigner Signature (if applicable): CC: ~ Signed [facility] Work Phone: [phone]) 674-146906-01-2023 Progress note Author Chilango Laughlin [facility] December 13, 2022 10:30am Note Date/Time December 13, 2022 10:19 am [facility] [address] [place] [address] Progress Note - Wound Care 12/13/22 1017 MR#: [id number] Acct: [id number] Name: JULIANA MERIDA YANELI Rep #:[id number] : 1960 62 From: Chilango joy MD [...] 09:39 12/13/22 09:39 Charges/Coding Procedures Integumentary 150xxx-152xx: 48442 Skin sub graft trnk/arm/leg Physical Exam Const [...] Recorded Date Recorded By Document 12/13/22 09:39 [facility] [id number] 12/13/22 09:42 [facility] 12/13/22 09:39 WC - Today's Visit Information Type of service Follow-up Visit (Physician/ONCOLOGY TECHNICIAN ) Arrival Mode Wheelchair Transfer Assistance None [...] Recorded Date Recorded By Document 12/13/22 09:39 [facility] [id number] 12/13/22 09:42 [facility] 12/13/22 09:39 Wound Center Nurse 1 [...] Date Recorded By Document 12/13/22 09:53 MW [id number] 12/13/22 10:02 MW 12/13/22 09:53 Wound Center [...] Disc -Expiration Date 09/13/27 -Product Lot Number [id number] -Percent Used 100 -Lot number of Saline Used [id number] -Bleeding Controlled with Pressure -Treatment Response Procedure [...] if needed. This note was generated with Familytication software. It may contain incorrectwords, spelling, and punctuation that were not noted in checking the note beforesigning. 12/13/22 1030 <Electronically signed by Chilango Laughlin MD> Cosigner Signature (if applicable): CC: ~ Signed [facility] Work Phone: [phone]) 175-463005-25-[address] Laughlin [facility] December 06, 2022 10:40am Note Date/Time December 06, 2022 10:40 am [facility] [address] [place] [address] Progress Note - Wound Care 12/06/22 1038 MR#: [id number] Acct: [id number] Name: JULIANA MERIDA Rep #:[id number] : 1960 62 From: Chilango joy MD [...] anaerobic bacteria isolated. Charges/Coding Procedures Integumentary 150xxx-152xx: 96768 Skin sub graft trnk/arm/leg Physical Exam Const [...] Date Recorded By Document 11/22/22 08:59 DL [id number] 11/22/22 09:12 DL Document 11/29/22 09:28 [facility] [id number] 11/29/22 09:43 BMF Document 12/06/22 09:36 DL [id number] 12/06/22 09:46 DL 11/22/22 11/29/22 12/06/22 08:59 09:28 09:36 WC - Today's Visit Information Type of service Initial Visit Follow-up Visit Follow-up Visit (Physician/ONCOLOGY TECHNICIAN (Physician/ONCOLOGY TECHNICIAN ) ) Arrival Mode Wheelchair Wheelchair Wheelchair [...] & Hygeine No Communication Assessment Preferred language Citizen Of The [place] Able to Read Yes Able to Write [...] in Ability to Perform Denies Any Declines Culture/Caodaism/Senior Electrical Controls Engineer Cultural/Caodaism Needs that may affect No Treatment Plan Would you allow our hospital paper processing machine helper to No meet you for the purpose of spiritual/ emotional support? Senior Electrical Controls Engineer to contact place of hinduism No Teaching: Wound Center Discharge Instructions -Person Taught Patient Dressing Your Wound -Person Taught Patient *Welcome to the Wound Center -Person Taught Patient WC - Nurse 1 - General Ulcer Measurement Start: 11/22/22 08:59 Freq: Status: Active Protocol: Activity Type Activity Date Activity User E-sign Co-sign Detail Recorded Client Recorded Date Recorded By Document 11/22/22 08:59 DL [id number] 11/22/22 09:12 DL Document 11/29/22 09:28 [facility] [id number] 11/29/22 09:43 BMF Document 12/06/22 09:36 DL [id number] 12/06/22 09:46 DL 11/22/22 11/29/22 12/06/22 08:59 [...] (34-66%) Large (67-100%) -Granulation Quality Red Red [place] -Slough/Fibrin Yes -Necrosis Amt Small (1-33%) Medium [...] Date Recorded By Document 11/22/22 09:38 MW [id number] 11/22/22 09:48 MW Document 11/29/22 09:52 [id number] 11/29/22 10:00 JF Document 12/06/22 10:26 MW [id number] 12/06/22 10:37 MW 11/22/22 11/29/22 12/06/22 09:38 [...] -Expiration Date 06/14/27 08/15/27 -Product Lot Number [id number] 005 -Percent Used 100 100 -Lot number of Saline Used [id number] -Bleeding Controlled with Pressure Pressure Pressure -Treatment [...] Date Recorded By Document 11/22/22 10:16 RB [id number] 11/22/22 10:17 RB Document 11/29/22 10:09 [facility] [id number] 11/29/22 10:10 [facility] 11/22/22 11/29/22 10:16 10:09 Wound Care [...] Summary of Care Provided Yes Facility Type Care Home Care Facility Assessment/Plan Assessment/Plan (1) Chronic [...] if needed. This note was generated with Familytication software. It may contain incorrectwords, spelling, and punctuation that were not noted in checking the note beforesigning. 12/06/22 1040 <Electronically signed by Chilango Laughlin MD> Cosigner Signature (if applicable): CC: ~ Signed [facility] Work Phone: [phone]) [phone] Laughlin [facility] November 29, 2022 1:11pm Note Date/Time November 29, 2022 1:11p m [facility] [address] [place] [address] Progress Note - Wound Care 11/29/22 1302 MR#: [id number] Acct: [id number] Name: JULIANA MERIDA Rep #:[id number] : 1960 62 From: Chilango joy MD [...] anaerobic bacteria isolated. Charges/Coding Procedures Integumentary 150xxx-152xx: 96860 Skin sub graft trnk/arm/leg Physical Exam Const [...] Recorded Date Recorded By Document 11/22/22 08:59 [id number] 11/22/22 09:12 DL Document 11/29/22 09:28 [facility] [id number] 11/29/22 09:43 [facility] 11/22/22 11/29/22 08:59 09:28 - Today's Visit Information Type of service Initial Visit Follow-up Visit (Physician/ONCOLOGY TECHNICIAN ) Arrival Mode Wheelchair Wheelchair Transfer Assistance [...] & Hygeine No Communication Assessment Preferred language Citizen Of [place] Able to Read Yes Able to Write [...] in Ability to Perform Denies Any Declines Culture/Caodaism/Senior Electrical Controls Engineer Cultural/Caodaism Needs that may affect No Treatment Plan Would you allow our hospital paper processing machine helper to No meet you for the purpose of spiritual/ emotional support? Senior Electrical Controls Engineer to contact place of hinduism No Teaching: Wound Center Discharge Instructions -Person Taught Patient Dressing Your Wound -Person Taught Patient *Welcome to the Wound Center -Person Taught Patient WC - Nurse 1 - General Ulcer Measurement Start: 11/22/22 08:59 Freq: Status: Active Protocol: Activity Type Activity Date Activity User E-sign Co-sign Detail Recorded Client Recorded Date Recorded By Document 11/22/22 08:59 DL [id number] 11/22/22 09:12 DL Document 11/29/22 09:28 BM [id number] 11/29/22 09:43 BMF 11/22/22 11/29/22 08:59 09:28 [...] Date Recorded By Document 11/22/22 09:38 MW [id number] 11/22/22 09:48 MW Document 11/29/22 09:52 [id number] 11/29/22 10:00 JF 11/22/22 11/29/22 09:38 09:52 [...] Epifix -Expiration Date 06/14/27 -Product Lot Number [id number] -Percent Used 100 -Lot number of Saline Used [id number] -Bleeding Controlled with Pressure Pressure -Treatment Response [...] Date Recorded By Document 11/22/22 10:16 RB [id number] 11/22/22 10:17 RB Document 11/29/22 10:09 [facility] [id number] 11/29/22 10:10 [facility] 11/22/22 11/29/22 10:16 10:09 Wound Care [...] Summary of Care Provided Yes Facility Type Care Home Care Facility Assessment/Plan Assessment/Plan (1) Chronic [...] if needed. This note was generated with Revee dictation software. It may contain incorrectwords, spelling, and punctuation that were not noted in checking the note beforesigning. 11/29/22 1311 <Electronically signed by Chilango Laughlin MD> Cosigner Signature (if applicable): CC: ~ Signed [facility] Work Phone: 1(156) 194-405905-12-2023 History and physical note Author Dr. Laughlin [facility] November 23, 2022 11:49am Note Date/Time November 22, 2022 1:34p m [facility] [address] [place] [address] H&P Exam - Wound Care 11/22/22 1322 MR#: [id number] Acct: [id number] Name: JULIANA MERIDA Rep #:[id number] : 1960 62 From: Chilango joy MD [...] nausea, vomitingor change in bowel habit reported. [facility] Medical History (Updated 11/22/22 @ 13:32 by [...] Date Recorded By Document 11/22/22 08:59 DL [id number] 11/22/22 09:12 DL 11/22/22 08:59 - Today's [...] & Hygeine No Communication Assessment Preferred language Citizen Of The [place] Able to Read Yes Able to Write [...] in Ability to Perform Denies Any Declines Culture/Caodaism/Senior Electrical Controls Engineer Cultural/Caodaism Needs that may affect No Treatment Plan Would you allow our hospital paper processing machine helper to No meet you for the purpose of spiritual/ emotional support? Senior Electrical Controls Engineer to contact place of hinduism No Teaching: Wound Center Discharge Instructions -Person Taught Patient Dressing Your Wound -Person Taught Patient *Welcome to the Wound Center -Person Taught Patient WC - Nurse 1 - General Ulcer Measurement Start: 11/22/22 08:59 Freq: Status: Active Protocol: Activity Type Activity Date Activity User E-sign Co-sign Detail Recorded Client Recorded Date Recorded By Document 11/22/22 08:59 DL [id number] 11/22/22 09:12 DL 11/22/22 08:59 Wound Center [...] Date Recorded By Document 11/22/22 09:38 MW [id number] 11/22/22 09:48 MW 11/22/22 09:38 Wound Center [...] Date Recorded By Document 11/22/22 10:16 RB [id number] 11/22/22 10:17 RB 11/22/22 10:16 Wound Care [...] Charges/Coding Visit Charges Office Visits / Consults: 18907 OV L4 New Procedures Integumentary 111xxx-113xx: 51102 Carla subq tissue 20 sq cm/< Assessment/Plan [...] if needed. This note was generated with Revee dictation software. It may contain incorrectwords, spelling, and punctuation that were not noted in checking the note beforesigning. 11/23/22 7912 <Electronically signed by Chilango Laughlin MD> Cosigner Signature (if applicable): CC: ~ Signed [facility] Work Phone: 1(296) 686-496304-05-2023 Hospital Discharge instructions Patient Education 10/17/2022 05:07:08 [...] thin towel or cloth. You may use jezl-qdr-abpvhuz pain medicine (NSAIDS or nonsteroidal anti- inflammatory [...] or is irritated You re-injure your ankle [id number] [employer]. [address] [place] [address]. All rights reserved. This information is not intended as a substitute for professional medical care. Always follow yourhealthcare professional's instructions. Follow Up Care 10/17/2022 04:04:56 With:LANA ARRIETA Address: [address] [place] [address]- Business (1) When:2-4 days [facility] 04-05-2023 Note Discharge Instructions Thank you for allowing [facility] to assist you with your healthcare needs. The following is importantdischarge information regarding your hospital visit. Diagnosis from Today's Visit Leg pain-swelling Sprain What to Do Next Instructions from Your Care Team No qualifying data available. Post Acute Orders No qualifying data available. You Need to Schedule the Following Appointments Follow Up with LANA ARRIETA When Within 2-4 days Where: [address] [place], [place] [address]- Business (1) Allergies Apricots (Rash) Bee Stings (Anaphylactic reaction) [place] (Rash) Dilaudid Lactose Milk Products (Rash) Peas (Rash) Phenergan Tomatoes tuberculin purified protein derivative (Lactose intolerance) Medications Please ask your primary doctor or pharmacist before taking any other medication not listed, including over the counter drugs, herbal medications, vitamins and or supplements as they may interact with[facility] medications. What How Much When Instructions [...] thin towel or cloth. You may use uekt-adx-sgzgkfn pain medicine (NSAIDS or nonsteroidal anti- inflammatory [...] or is irritated You re-injure your ankle [phone] [employer]. [address] [place] [address]. All rights reserved. This information is not intended as a substitute for professional medical care. Always follow yourhealthcare professional's instructions. Additional Information VACCINATE! IT SAVES LIVES! Members of the community who have not yet received the COVID-19 vaccine and would like to receive it can visit one of [facility] vaccine clinics. There are many vaccine clinic locations within the [facility]. For locations and available times, please visit [email or web address]/. It is important to note that some COVID mobile vaccine clinics are held outdoors and may be canceled in rainy or stormy conditions. To learn more about pediatric vaccinations (ages 5-11), we invite you to visit the [facility] webpage. https://www.[email or web address]/pages/[email or web address]-Gzyqv-Hkwzbcjijsp-Msxolpmszl-Uwzez-[email or web address] stions.htmlTo learn more about the COVID-19 vaccine, we invite you to visit the CDC website for a list of frequently asked questions. https://www.cdc.gov/coronavirus/2019-ncov/vaccines/faq.html [facility] Patient Portal Access Instructions: Stay connected with your healthcare team and access your personal medical information anytime with the [facility] Patient Portal. If you would like a full copy of your medical records please contact the [facility] Records Department Saturday through Saturday between 8a.m. and 4:30p.m. Please follow the directions below to access the portal: 1.Access the email account you provided upon registration to the [facility].2.Look for an invitation email from [facility].3.Open the email and access the invitation link: Accept Invitation to [employer]4.Fill in the required lozano to create your [...] you will allow to register on the [facility] Patient Portal for access to your information. You can also access the [employer] Patient Portal on the [employer]. Simply click on Health Records under [employer] and then click on the Ta logo. [...] Call your local pharmacy or go to [email or web address] to find one close to you.3.Make use of household items: Use cat litter or old coffee grounds to dispose medications if other options arenot available. Mix your drugs with these household products, seal them in an airtight container andthrow it into the garbage. Call [facility]: [phone] to be sure your drugs can be [...] aware that I should contact my doctor. Patient/Flag Car Driver Signature: Date/Time: Relationship to Patient: Witness Name/Signature: Date/Time: [facility]04-05-2023 Note ORIGINAL EXAMINATION: 6 XRAY VIEWS [...] Sign Date: 10/17/2022 5:04:00 AM Ordering Provider: [address]05-2023 Note ORIGINAL EXAMINATION: THREE XRAY VIEWS [...] Sign Date: 10/17/2022 5:02:30 AM Ordering Provider: [place] [address]-05-2023 Note ORIGINAL EXAMINATION: 6 XRAY VIEWS OF [...] Sign Date: 10/17/2022 5:04:00 AM Ordering Provider: [facility]04-05-2023 Note ORIGINAL EXAMINATION: THREE XRAY VIEWS [...] Sign Date: 10/17/2022 5:02:30 AM Ordering Provider: [facility]03-02-2023 History of Present illness Narrative* Funmilayo [...] getting TPI. Now seeing Dr. Ruelas in [place] Has morphine pump Meeting with pain mgmt [...] Antibody Latest Ref Range: <30 IU/mL <12 Anti-PLASTIC PRESS MOLDER Latest Ref Range: <1.0 AI 0.7 Anti-SSB [...] file. Funmilayo Pope MD [facility] Hospital Discharge instructions Patient Education 04/28/2022 19:25:31 [...] Swelling, pain or redness in one leg [phone] [employer]. [address] [place] [address]. All rights reserved. This information is not intended as a substitute for professional medical care. Always follow yourhealthcare professional's instructions. Follow Up Care 04/28/2022 17:19:37 With:LANA ARRIETA Address: [address] [facility] [place] [address]- Business (1) When:2-4 days Comments:Schedule appointment for close follow-up.Resume all routine home medications.Return to the ED if symptoms worsen. [facility] 10-15-2022 Note ORIGINAL EXAMINATION: ONE XRAY [...] Date: 04/28/2022 6:24:18 PM Ordering Provider: TAVIA [facility]07-20-2022 Miscellaneous Notes* Telephone Encounter - Esther Lopez [place] [facility] - 01/31/2022 10:53 AM EDT Prolia - NO PA REQ for medicare B Esther Lopez [employer] [facility] Advised Ashtyn to schedule pt. * Telephone Encounter - Berenice Edmond PA-C - 01/31/2022 9:40 AM EDT ARMINDA Edmond PA-C documented in this encounterR[facility]07-20-2022 Miscellaneous Notes* Addendum Note - Berenice Edmond PA-C - 01/31/2022 9:41 AM EDT Addended by: BERENICE EDMOND on: 01/31/2022 09:41 AM Modules accepted: Orders documented in this encounterRiverview Health Institute07-20-2022 History of Present illness Narrative* Berenice Edmond PA-C - 01/31/2022 8:56 AM EDT Images from the original note were not included. [facility] General Arthritis and Rheumatology Berenice Edmond [address] [address] RHEUMATOLOGY PROGRESS NOTE Patient is here for [...] getting TPI. Now seeing Dr. Ruelas in [place] Has morphine pump Meeting with pain mgmt [...] Antibody Latest Ref Range: <30 IU/mL <12 Anti-PLASTIC PRESS MOLDER Latest Ref Range: <1.0 AI 0.7 Anti-SSB [...] Pope. Berenice Edmond PA-C documented in this encounterRiver[facility] Institute06-01-2022 History of Present illness Narrative* Ronaldo Villarreal MD - 12/13/2021 10:00 AM EDT [facility] HPI Juliana Merida is a 61 year old female who presents for TPI. Her pain is located over the neck (R>L) and low back. There is also radiation into the arms and legs. The patient has an ITP pump and is seeking a new provider for management. This was placed in 2011 and [place] [address] Ruelas in [place]. A referral was entered for an consultation with [facility] [place] [facility] for an evaluation. Review of [...] (FLONASE) 50 mcg/actuation nasal spray Use 1 [place] in each nostril once daily. . 0 [...] daily as needed. 1 Inhalation 11 Insulin [place], Disposable, (PEN NEEDLE) 29 x 1/2 ndle [...] Bupivacaine 5 %, Amitriptyline 2 % 0 Qktupehhwkgrh-Wwqovusz-Lzfatb (CENTRUM SILVER) tab Take 1 tablet by [...] times (time out, procedure start, procedure end). [place] protocol documentation / Pre-Procedure checklist: 1. Unless [...] Ronaldo Villarreal MD [facility] * Madeleine Verma MA - 12/13/2021 9:33 [...] The patient is nervous/anxious. documented in this encounterRiver[facility]06-01-2022 Procedure note* Ronaldo Villarreal MD - 12/13/2021 [...] procedurewell without apparent complications. documented in this encounterRiverview [facility] Institute06-01-2022 Instructions* Patient Instructions* Tejal Carter LPN - 12/13/2021 9:29 AM EDT documented in this encounterRiverview Health Institute06-01-2022 Nurse Note* Madeleine Verma MA - 12/13/2021 [...] are you scheduled to receive one? n Canned Food Reconditioning Inspector's Name: Medical Transportation documented in this [facility]05-20-2022 Evaluation + Plan note Diagnostic Tests Pending * Urine Culture 12/01/21 [facility] 05-20-2022 Hospital Discharge instructions Patient Education 12/01/2021 [...] or a fever with an unknown cause. Jwvh-owq-abeksro medicines will not shorten the duration of [...] your healthcare provider Feeling weak or dizzy [id number] [employer]. [address] [place] [address]. All rights reserved. This information is not intended as a substitute for professional medical care. Always follow yourhealthcare professional's instructions. Follow Up Care 11/30/2021 18:10:39 With:LANA ARRIETA MD Address: [address] [place] [address] [place] [address]- When:2-4 days [facility] 05-19-2022 HCoV 229E RNA IRISH+non-probe Ql (Nph)Not Detected *NA* (11/30/21 8:58 PM) Auto Viro/Sero [id number] Procedure note* Luis Pagan, DO - 11/21/2021 [...] chart. Luis Pagan DO documented in this [facility]04-28-2022 Miscellaneous Notes* Telephone Encounter - Samara Coronado - 11/09/2021 3:02 PM EDT 11/09/2021 PT WILL CALL IN WITH JOI PHONE NUMBER FOR THE CANCELLATION LIST. PT. NEEDS TO COME IN FORTPI WITH JUDAH PORRAS. WAS SCHEDULED INCORRECT. Samara Coronado documented in this [facility]04-05-2022 Miscellaneous Notes* Telephone Encounter - Funmilayo Pope MD - 10/17/2021 12:34 PM EDT Does reclast need PA? documented in this [facility]01-24-2022 NoteHNO ID: [id number] Author: Yrn Frost RT(R) Service: ? Author [...] BY: RT Elvin(R) August 07, 2021 11:37 [facility]07-23-2008 History of Past illness Narrative* Problem Noted [...] of this encounter (statuses as of 10/17/2021) [facility] of Past illness Narrative* Problem Noted [...] of this encounter (statuses as of 11/09/2021) [address]23-2008 History of Past illness Narrative* Problem [...] of this encounter (statuses as of 11/21/2021) [address]23-2008 History of Past illness Narrative* Problem [...] this encounter (statuses as of 11/29/2021) [address]23-2008 History of Past illness Narrative* Problem [...] this encounter (statuses as of 12/13/2021) [address]23-2008 History of Past illness Narrative* Problem [...] this encounter (statuses as of 01/31/2022) [address]23-2008 History of Past illness Narrative* Problem [...] of this encounter (statuses as of 01/31/2022) [place] [address]23-2008 History of Past illness Narrative* Problem Noted [...] this encounter (statuses as of 03/07/2022) [address]23-2008 History of Past illness Narrative* Problem [...] this encounter (statuses as of 09/05/2022) [address]23-2008 History of Past illness Narrative* Problem [...] of this encounter (statuses as of 09/13/2022) [facility] of [facility] illness Narrative* Problem Noted [...] this encounter (statuses as of 03/07/2023) [address]23[address]2008 History of Past illness Narrative* Problem [...] of this encounter (statuses as of 03/13/2023) [facility] of [facility] illness Narrative* Problem Noted [...] of this encounter (statuses as of 03/13/2023) [facility] of [facility] illness Narrative* Problem Noted [...] of this encounter (statuses as of 03/26/2023) [facility] of [facility] illness Narrative* Problem Noted [...] of this encounter (statuses as of 09/20/2023) [facility] of [facility] Narrative* Problem Noted [...] of this encounter (statuses as of 10/07/2023) [facility] InstituteConsult note Author Eric Kancherla [facility] Note Date/Time January 21, 2025 8:23 am [facility] Medical Records Department [address] [place] [address] Pre-Anesthesia Evaluation 01/21/2510 MR#: [id number] Acct: [id number] Name: JULIANA MERIDA Rep #:[id number] : 1960 64 From: Eric Monte MD PCP: Mariah Atkinson MD Status:REG SDC Y Race: C Location: [place] [address] ASA Classification* ASA Classification ASA Classification: 3 [...] Procedure(s): EGD Anesthesia History Anesthesia History - national facilities manager: Anesthesia History - national facilities manager Hx Hospitalization No 01/20/25 11:52 Any Problems [...] take am of surgery PONV PONV - national facilities manager: PONV - national facilities manager Female Yes 01/20/25 11:52 HX of Motion [...] 01/21/25 07:45 Respiratory Assessment Respiratory Assessment - national facilities manager: Respiratory Tract Infection Hx - national facilities manager Hx Respiratory Tract Infection No 01/30/24 12:09 STOP Sleep Apnea STOP Sleep Apnea - national facilities manager: STOP Sleep Apnea - national facilities manager Hx Hypertension Yes 01/20/25 11:52 Hx Sleep [...] Tobacco Use History Tobacco Use History - national facilities manager: Tobacco Use History - national facilities manager Tobacco Use Smoking Status Light Smoker (<10/day) 01/20/25 11:52 Hx Tobacco Use Yes 01/20/25 11:52 Years Smoking Packs Smoked per Day Smoking Cessation Date was within the last 15 years Hx Smoking Cessation Date Hx Smoking Cessation No 01/20/25 11:52 Counseling Any additional information?: Yes Smoking Status: Former smoker (Patient quit smoking 2 and half months ago.) Hematologic Medial History Hematologic Hx - national facilities manager: Hematologic Medical Hx - clinical documentation manager Hx of Blood Transfusion Hx of Transfusion in last 3 Months Date of Last Transfusion (if within last 3 months) Ever experience any problems with transfusion(s)? Specify any problems Hx of Preganancy in last 3 Months Nurse Filling Out Transfusion & Questions: Date: Time: Patient unable to answer at Yes 01/20/25 11:52 this time (ie. confused, unrespo /Reproduction History /Reproductive History - national facilities manager: /Reproductive Hx- national facilities manager Hx Now No 01/20/25 11:52 Gestational Age [...] pain when walking Leg cramps Lives in jail Hx of fracture of hip Wears glasses [...] 2.5 mg/3 mL 2.5 mg inhalation Q4H CO N SOB 07/29/21 Unknown History (0.083 %) [...] MD Cosigner Signature: Date CC: ~ Signed [facility] Work Phone: Consult note Author Kimmie Serna [facility] Note Date/Time January 21, 2025 10:0 2am [facility] Medical Records Department [address] [place] [address] Anesthesia Postop Eval II 01/21/2549 MR#: [id number] Acct: [id number] Name: JULIANA MERIDA Rep #:[id number] : 1960 64 From: Kimmie DE LA CRUZ PCP: Mariah Atkinson MD Status:REG SDC Y Race: C Location: [place] [address] Anesthesia Postop Eval I Sum Postop Eval [...] CRNA Cosigner Signature: Date CC: ~ Signed [facility] Work Phone: evaluation + Plan note Future Appointments Appointment Date:09/28/2024 01:00:00 PM Scheduled Provider:MAULIK العلي DO Location:UROLOGY Appointment Type:URO OV Future Scheduled Tests Radiology* Renal 09/13/24 [facility] Evaluation + Plan note Future Appointments Appointment Date:10/01/2025 02:00:00 PM Scheduled Provider:MAULIK العلي DO Location:UROLOGY Appointment Type:URO OV Future Scheduled Tests Radiology* Renal 09/13/24 [facility] Evaluation note* Diagnosis Disturbance of skin sensation- Primary [facility]* Diagnosis Other osteoporosis without current pathological fracture- Primary documented in this encounter [facility] note* Diagnosis Myofascial pain- Primary Mylagia and myositis, unspecified Implantable intrathecal infusion pump present documented in this encounter [facility] noteNo assessment information availableWUniversity [facility]als [facility] Work Phone: evaluation note* Diagnosis Other osteoporosis without current pathological fracture- Primary Primary osteoarthritis involving multiple joints Vitamin D deficiency Unspecified vitamin D deficiency documented [facility]* Diagnosis Other osteoporosis without current pathological fracture- Primary documented in this encounter [facility] note* Diagnosis Other osteoporosis without current pathological fracture- Primary [facility]* Diagnosis Low back pain, unspecified back pain laterality, unspecified chronicity, unspecified whether sciatica present- Primary Pain in both lower extremities Osteoporosis, unspecified osteoporosis type, unspecified pathological fracture presence documented [facility]* Diagnosis Onset Date Resolution Status Insulin dependent diabetes mellitus acute Tobacco abuse acute 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 [facility] Work Phone: evaluation note* Diagnosis Onset Date Resolution Status Insulin dependent diabetes mellitus acute Tobacco abuse acute 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 Closed fracture of distal end of left fibula noneactive Closed fracture of distal end of left fibula noneactive Insulin dependent diabetes mellitus acute Tobacco abuse acute 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 [facility] Work Phone: Evaluation note* Diagnosis Onset [...] of distal end of left fibula noneactive [facility] Work Phone: Evaluation note* Diagnosis Osteoporosis, unspecified osteoporosis type, unspecified pathological fracture presence- Primary [facility]* Diagnosis Osteoporosis, unspecified osteoporosis type, unspecified pathological fracture presence- Primary documented [facility] this encounter [facility]* Diagnosis Onset Date Resolution Status Chronic [...] right ankle with fat layer exposed chronic [facility] Work Phone: Evaluation note* Diagnosis Onset [...] right ankle with fat layer exposed chronic [facility] Work Phone: Evaluation note* Diagnosis Onset [...] right ankle with fat layer exposed chronic [facility] Work Phone: Evaluation note* Diagnosis Onset [...] right ankle with fat layer exposed chronic [facility] Work Phone: Evaluation note* Diagnosis Other osteoporosis without current pathological fracture- Primary [facility] encounter [facility]* Diagnosis Osteoporosis, unspecified osteoporosis type, unspecified pathological fracture presence- Primary [facility] this encounter [facility]* Diagnosis Onset Date Resolution Status Insulin [...] with fat layer exposed chronic Hyperlipidemia chronic [facility] Work Phone: Evaluation note* Diagnosis Onset [...] with fat layer exposed chronic Hyperlipidemia chronic [facility] Work Phone: Evaluation note* Diagnosis Onset [...] of tobacco use chron ic Hyperlipidemia chronic [facility] Work Phone: Evaluation note* Diagnosis Age-related osteoporosis without current pathological fracture- Primary Senile osteoporosis documented in this encounter [facility] and [facility] Author Fer Friend [facility] Note Date/Time January 21, 2025 8:37 am [facility] Medical Records Department [address] [place] [address] History & Physical Exam 01/21/25 0836 MR#: [id number] Acct: [id number] Name: JULIANA MERIDA YANELI Rep #:[id number] : 1960 64 From: Fer Simmons DO PCP: Mariah Atkinson MD [facility] CENTER Location: [place] [address] HPI - General General Date of Admission: 01/21/25 Date of Service: 01/21/25 HPI Narrative JULIANA MERIDA, is a 64 F who presentsWANHMario MAGNOLIA, is a 64 F who presents to the office today for establishment with [facility] for concerns of abdominal epigastric pain, heartburn, and constipation. She resides at [facility] due to history of stroke affecting [...] emesis, abdominal cramping, diarrhea, hematochezia, and melena. [facility] Medical History History of pressure injury of skin Gastric reflux History of pain when walking Leg cramps Lives in jail Hx of fracture of hip Wears glasses [...] 2.5 mg/3 mL 2.5 mg inhalation Q4H CO N SOB 07/29/21 Unknown History (0.083 %) [...] to the office today for establishment with [facility] for concerns of abdominal epigastric pain, heartburn, and constipation. Constipation is most likely drug-induced. Discussed care plan with her. She has never had an EGD but her last colonoscopy was done in [place] around 2022. * polyethylene glycol (Miralax) 17gm [...] Mariah Atkinson MD; Fer Simmons DO~ Signed [facility] Work Phone: Hospital course Narrative No data available for this section [facility] Discharge instructions No data available for this section [facility] Discharge instructions Additional Instructions 17 mm exophytic mass right kidney seen. Further workup advised as an outpatient. Increase furosemide to 60 mg once a day, or as advised by Dr. Palomares if different dosing desired.[facility] Work Phone: Hospital Discharge instructionsAdditional Instructions Wear [...] the ER should you have any further concernsW[facility] Work Phone: Note* TAVIA NORRIS MD: SIGN, VERIFY Event Display: EKG [ED AOH] - CV Authored Date: [id number] [facility] Progress note No data available for this section [place] Reason for referral (narrative)No reason for referral information availableWUniversity [facility]als [facility] Work Phone: Summary Purpose Family [...] Will No July 29 11:45pm Power of Anesthesiologist And Critical Care No July 29, 2021 11:45pm Advance Directive Response Recorded Date/ Time Advance Directives No July 27, 2016 2:54pm Living Will No July 29 10:45pm Power of Anesthesiologist And Critical Care No July 29, 2021 10:45pm Advance Directive Response Recorded Date/ Time Advance Directives No July 27, 2016 3:54pm Living Will Yes November 24, 2023 4 :30pm Power of Anesthesiologist And Critical Care No November 24, 2023 4:30pm Advance Directive Response Recorded Date/ Time Living Will No September 12, 2024 11:13pm Power of Anesthesiologist And Critical Care Yes September 12 11:13pm Name of Medical Power of Anesthesiologist And Critical Care jose armas September 12, 2024 11:13pm Living Will No September 27, 2024 1:40am Power of Anesthesiologist And Critical Care Yes September 27 1:40am Name of Medical Power of Anesthesiologist And Critical Care JOSE ARMAS September 27, 2024 1:40am Advance Directives No July 27, 2016 3:54pm Advance Directive Response Recorded Date/ Time Living Will No September 27, 2024 1:40am Do you have a Healthcare Power of Anesthesiologist And Critical Care? Yes September 27, 2024 1:40am Name of Medical Power of Anesthesiologist And Critical Care JOSE ARMAS September 27, 2024 1:40am Do you have a Healthcare Power of Anesthesiologist And Critical Care? No January 20, 2025 11:52am Advance Directives No July 27, 2016 3:54pm Advance Directive Response Recorded Date/ Time Living Will No September 27, 2024 1:40am Do you have a Healthcare Power of Anesthesiologist And Critical Care? Yes September 27, 2024 1:40am Name of Medical Power of Anesthesiologist And Critical Care JOSE ARMAS September 27, 2024 1:40am Do you have a Healthcare Power of Anesthesiologist And Critical Care? No January 20, 2025 11:52am Do you have a Healthcare Power of Anesthesiologist And Critical Care? Yes January 24, 2025 10:43pm Name of Medical Power of Anesthesiologist And Critical Care Jose Armas January 24, 2025 10:43pm Advance [...] CONSULT TO PAIN MGT Ronaldo Villarreal MD [address] [place] [address] Referral ID Status Reason Start Date Expiration Date Visits Requested Visits Authorized [id number] Ref Not Required PCP Requested Referral 12/13/2021 [...] section and content) DATE CREATED AUTHOR 01/08/[address] [facility] DATE CREATED AUTHOR AUTHOR'S ORGANIZ ATION 2021 [facility] DATE CREATED AUTHOR AUTHOR'S ORGANIZ ATION 10/07/2023 [facility] DATE CREATED AUTHOR AUTHOR'S ORGANIZ ATION 11/21/2024 [facility] DATE CREATED AUTHOR AUTHOR'S ORGANIZ ATION 01/24/2025 [facility] DATE CREATED AUTHOR AUTHOR'S ORGANIZ ATION 01/24/2025 [facility] Source Comments (unrecognize d section and content) In the event this informatio n is protected by the Federal Confidentiality of Alcohol and Drug Abuse Patient Records regulations: The Federal rules restrict any use of the information to criminally investigate or prosecute any alcohol or drug abuse patient.[facility] InstituteIn the event this information is protected by the Federal Confidentiality of Alcohol and Drug Abuse Patient Records regulations: The Federal rules restrict any use of the information to criminally investigate or prosecute any alcohol or drug abuse patient.[facility] InstituteIn the event this information is protected by the Federal Confidentiality of Alcohol and Drug Abuse Patient Records regulations: The Federal rules restrict any use of the information to criminally investigate or prosecute any alcohol or drug abuse patient.[facility] InstituteIn the event this information is protected by the Federal Confidentiality of Alcohol and Drug Abuse Patient Records regulations: The Federal rules restrict any use of the information to criminally investigate or prosecute any alcohol or drug abuse patient.[facility] InstituteIn the event this information is protected by the Federal Confidentiality of Alcohol and Drug Abuse Patient Records regulations: The Federal rules restrict any use of the information to criminally investigate or prosecute any alcohol or drug abuse patient.[facility] InstituteIn the event this information is protected by the Federal Confidentiality of Alcohol and Drug Abuse Patient Records regulations: The Federal rules restrict any use of the information to criminally investigate or prosecute any alcohol or drug abuse patient.[facility] InstituteIn the event this information is protected by the Federal Confidentiality of Alcohol and Drug Abuse Patient Records regulations: The Federal rules restrict any use of the information to criminally investigate or prosecute any alcohol or drug abuse patient.[facility] InstituteIn the event this information is protected by the Federal Confidentiality of Alcohol and Drug Abuse Patient Records regulations: The Federal rules restrict any use of the information to criminally investigate or prosecute any alcohol or drug abuse patient.[facility] InstituteIn the event this information is protected by the Federal Confidentiality of Alcohol and Drug Abuse Patient Records regulations: The Federal rules restrict any use of the information to criminally investigate or prosecute any alcohol or drug abuse patient.[facility] InstituteIn the event this information is protected by the Federal Confidentiality of Alcohol and Drug Abuse Patient Records regulations: The Federal rules restrict any use of the information to criminally investigate or prosecute any alcohol or drug abuse patient.[facility] InstituteIn the event this information is protected by the Federal Confidentiality of Alcohol and Drug Abuse Patient Records regulations: The Federal rules restrict any use of the information to criminally investigate or prosecute any alcohol or drug abuse patient.[facility] InstituteIn the event this information is protected by the Federal Confidentiality of Alcohol and Drug Abuse Patient Records regulations: The Federal rules restrict any use of the information to criminally investigate or prosecute any alcohol or drug abuse patient.[facility] InstituteIn the event this information is protected by the Federal Confidentiality of Alcohol and Drug Abuse Patient Records regulations: The Federal rules restrict any use of the information to criminally investigate or prosecute any alcohol or drug abuse patient.[facility] InstituteIn the event this information is protected by the Federal Confidentiality of Alcohol and Drug Abuse Patient Records regulations: The Federal rules restrict any use of the information to criminally investigate or prosecute any alcohol or drug abuse patient.[facility] InstituteIn the event this information is protected by the Federal Confidentiality of Alcohol and Drug Abuse Patient Records regulations: The Federal rules restrict any use of the information to criminally investigate or prosecute any alcohol or drug abuse patient.[facility] InstituteIn the event this information is protected by the Federal Confidentiality of Alcohol and Drug Abuse Patient Records regulations: The Federal rules restrict any use of the information to criminally investigate or prosecute any alcohol or drug abuse patient.[facility] InstituteIn the event this information is protected by the Federal Confidentiality of Alcohol and Drug Abuse Patient Records regulations: The Federal rules restrict any use of the information to criminally investigate or prosecute any alcohol or drug abuse patient.[facility] InstituteIn the event this information is protected by the Federal Confidentiality of Alcohol and Drug Abuse Patient Records regulations: The Federal rules restrict any use of the information to criminally investigate or prosecute any alcohol or drug abuse patient.[facility] InstituteIn the event this information is protected by the Federal Confidentiality of Alcohol and Drug Abuse Patient Records regulations: The Federal rules restrict any use of the information to criminally investigate or prosecute any alcohol or drug abuse patient.[facility] InstituteIn the event this information is protected by the Federal Confidentiality of Alcohol and Drug Abuse Patient Records regulations: The Federal rules restrict any use of the information to criminally investigate or prosecute any alcohol or drug abuse patient.[facility] InstituteIn the event this information is protected by the Federal Confidentiality of Alcohol and Drug Abuse Patient Records regulations: The Federal rules restrict any use of the information to criminally investigate or prosecute any alcohol or drug abuse patient.[facility] Reason for Visit (unrecogniz ed section and content) Reason Comments Imm/Inj Specialty Diagnoses / Procedures Referred By Contac t Referred To Contact Neurology / HEMONC INFUSION Diagnoses // prolia Procedures DENOSUMAB INJECTION TREATMENT 30 MINUTES Funmilayo Pope MD [address] [place] [address] Infusion [facility] [address] [place] [address] Referral ID Status Reason Start Date Expiration Date V isits Requested Visits Authorized [id number] Authorized 07/27/2024 07/15/2025 1 2 Specialty Diagnoses / Procedures Referred By Contac t Referred To Contact HEMATOLOGY/ONCOLOGY Diagnoses Other osteoporosis without current pathological fracture Procedures DENOSUMAB INJECTION Prolia [id number] Funmilayo Pope MD [address] [place] [address] [facility] [address] [place] [address] Referral ID Status Reason Start Date Expiration Date V isits Requested Visits Authorized [id number] Authorized 01/31/2022 03/26/2024 2 2 Reason Comments Medication Follow-up Reason Comments Patient Update NEW PHONE NUMBER Reason Comments Infusion Specialty Diagnoses / Procedures Referred By Contbenitez t Referred To Contact Diagnoses Other osteoporosis without current pathological fracture Procedures Funmilayo King MD [address] [place] [address] Joe Treat [facility] [address] [place] [address] Referral ID Status Reason Start Date Expiration Date V isits Requested Visits Authorized [id number] Authorized 09/12/2021 12/11/2021 99 99 Reason Comments Procedure Reason Comments Osteoarthritis Reason Comments Medication Authorization Prolia - NO PA REQ for medicare B Reason Comments Osteoporosis BMD on 08/07/2021 Reason Comments Orders Reason Comments APPROVED Prolia ([place]) APPROV ED [id number] 03.26.23 - 03.26.24 for 2 visits [facility] Medicare/Portal Reason Comments Results Reason Comments Appointment Reason Comments Medication Preauthorization Prolia- Bath Approved [id number] [facility] Medicare/Portal 07.15.24-07.15.25 2 visits Care Teams (unrecognized sec tion and content) Carpenter Supervisor Relationship Specialty Start Date End Date Lana Arrieta MD [address] [place] [address] PCP - General [facility] Practice 12/28/20 Carpenter Supervisor Relationship Specialty Start Date End Date Lana Arrieta MD [address] [place] [address] PCP - General [facility] Practice 12/28/20 Carpenter Supervisor Relationship Specialty Start Date End Date Lana Arrieta MD [address] [place] [address] PCP - [facility] Practice 12/28/20 Carpenter Supervisor Relationship Specialty Start Date End Date Lana Arrieta MD [address] [place], [place] [id number] PCP - General Family Practice 12/28/20 Carpenter Supervisor Relationship Specialty Start Date End Date Lana Arrieta MD [address] [place] [address] PCP - General Family Practice 12/28/[address] [address] Anesthesiology 01/31/22 Carpenter Supervisor Relationship Specialty Start Date End Date Lana Arrieta MD [address] [place] [address] PCP - General Family Practice 12/28/[address] [address] Anesthesiology 01/31/22 Carpenter Supervisor Relationship Specialty Start Date End Date Lana Arrieta MD [address] [place] [address] PCP - General Family Practice 12/28/20 [facility] [address] [address] Anesthesiology 01/31/22 Carpenter Supervisor Relationship Specialty Start Date End Date Lana Arrieta MD [address] [place] [address] PCP - General Family Medicine 12/28/[address] [address] Anesthesiology 01/31/22 Carpenter Supervisor Relationship Specialty Start Date End Date Lana Arrieta MD [address] [place] [address] PCP - General Family Medicine 12/28/20 Lauren Ruelas [address] [place] [address] Anesthesiology 01/31/22 Team Status: Active Member Role Status Dates Dr. Lana Arrieta MD Family Provider Active Dr. Bianca Palomares MD Primary Care Provider Active Team Status: Active Member Role Status Dates Dr. Chilango Laughlin MD Attending Provider, Other Pr ovider Active Dr. Bianca Palomares MD Primary Care Provider, Referring Provider Active Team Status: Inactive Member Role Status Dates Dr. Chilagno Laughlin MD Attending Provider Active Dr. Bianca [...] Dr. Festus Luque MD Attending Provider Active Carpenter Supervisor Relationship Specialty Start Date End Date Lana Arrieta MD [address] [place] [address] PCP - General Family Medicine 12/28/20 [facility] [address] [place], [place] [address] Anesthesiology 01/31/22 Carpenter Supervisor Relationship Specialty Start Date End Date Laan Arrieta MD [address] [place] [address] PCP - General Family Medicine 12/28/20 Lauren Ruelas [address] [place] [address] Anesthesiology 01/31/22 Carpenter Supervisor Relationship Specialty Start Date End Date Lana Arrieta MD [address] [place] [address] PCP - General Family Medicine 12/28/20 Lauren Ruelas [address] [place] [address] Anesthesiology 01/31/22 Carpenter Supervisor Relationship Specialty Start Date End Date Lana Arrieta MD [address] [place] [address] PCP - General Family Medicine 12/28/20 Lauren Ruelas [address] [place] [address] Anesthesiology 01/31/22 Carpenter Supervisor Relationship Specialty Start Date End Date Lana Arrieta MD [address] [place] [address] PCP - General Family Medicine 12/28/20 Lauren Ruelas MD [address] [place] [address] Anesthesiology 01/31/22 Carpenter Supervisor Relationship Specialty Start Date End Date Lana Arrieta MD [address] [place] [address] PCP - General Family Medicine 12/28/20 Lauren Ruelas MD [address] [place] [address] Anesthesiology 01/31/22 Team Status: Inactive Member Role [...] Dr. Dino Pena MD Emergency Provider Active Carpenter Supervisor Relationship Specialty Start Date End Date Lana Arrieta MD [address] [place], [place] [address] PCP - General Family Medicine 12/28/20 Lauren Ruelas MD [address] [place] [address] Anesthesiology 01/31/22 Carpenter Supervisor Relationship Specialty Start Date End Date Lana Arrieta MD [address] [place] [address] PCP - General Family Medicine 12/28/20 Lauren Ruelas MD [address] [place] [id number] Anesthesiology 01/31/22 Carpenter Supervisor Relationship Specialty Start Date End Date Lana Arrieta MD [address] [place] [address] PCP - General Family Medicine 12/28/20 Lauren Ruelas MD [address] [place] [address] Anesthesiology 01/31/22 Team Status: Active Member Role [...] September 27, 2024 End: September 27, 2024 Carpenter Supervisor Relationship Specialty Start Date End Date Lana Arrieta MD [address] [place] [address] PCP - General Family Medicine 12/28/20 Lauren Ruelas MD [address] [place] [address] Anesthesiology 01/31/22 Team Status: Active Member Role/Relationship [...] Member Role: Primary Care Physician Address: Address: [address] [place] [id number]- [place] Care Team Related Persons Name: JOSE ARMAS Care Team Personnel Name: LANA ARRIETA MD Position: P4 Physician - Primary Care Med Service: Active Provider Member Role: Primary Care Physician Address: Address: [address] [facility] [place] [address]- Care Team Related Persons Name: JOSE ARMAS [...] BE BASED ON THE PRIMARY CLINICAL RECORDS. [employer] provides no warranty or guarantee of the accuracy or completeness of information in this document.
[2025-01-27 01:09] LABS: FI02 3.0; SITE Not entered; VBG BASE EXCESS 5 mmol/L (-1.0-3.5); VBG PO2 57 mmHg (25-40); VBG SO2 87 % (50-70); VBG TCO2 32 mmol/L (23-33)
[2025-01-27 01:33] LABS: Alcohol, Blood (Medical)-Serum < 10.1 mg/dL (<=10.0)
--- OUTSIDE RECORDS SUMMARY | 2025-01-27 01:39 | XMS RPT_ITS | CCD ---
Author Organization [facility] Care Team Providers Care Data Processing Equipment Repairer Name Role Phone Ebonie Sandra N Unavailable Rafaela Loomsiica N Unavailable Karthikeyan Hall Unavailable Ebonie Sandra N Unavailable Ebonie Sandra N Unavailable Rafaela Loomisica N Unavailable JEREMY MACHADO Unavailable Unavai Karthikeyan Duff Unavailable Lana Arrieta MD Primary Care Provider [phone] LANA ARRIETA MD Primary Care Physician Lauren [...] SOARES, Lana Vargas Primary Care Provider [phone] Jessenia SOARES, Lauren Swift Unavailable MARIELLE SOARES, [...] Ismael SOARES, Dr. Mariah Daniels Primary Care [facility] er Dr. Gregorio Cochran DO Emergency Provider [phone] MAULIK العلي DO Attending MARIAH East MD Primary Care Unavail able REFERRING, PHY WO ID Attending DR BIANCA Ansari MD Primary Care Rich Atkinson MD, Dr. Mariah Daniels Primary Care [facility] er Dr. Gregorio Cochran DO Attending Provider Ismael SOARES, Dr. Mariah Daniels Referring Provider Gianna Mi Attending Provider [phone] Rahsaan Attending Provider Friend , Dr. Monroe Other Provider Gudla, Bianca Primary Care Unavailable Gudla, Bianca Referring Unavailable Karthikeyan Grove Attending Unavailable Fer Simmons Consulting Unavailable FriendFer Attending Unavailable Morehart, Mariah Frances Referring Unavailabl e Morehart, Mariah Frances Primary Care Unavailabl e Dino Pena Attending Unavailable Morehart, Mariah Frances Primary Care Unavailabl e BasaliLauern Attending Unavailable Basali, Ayman Referring Unavailable Gudla, [...] SUPPLIES [Other] Propensity to adverse reactions 5 [facility] Work Phone: (20 sources) IVP CONTRAST [Other] Propensity to adverse reactions 5 Intolerance [facility] Work Phone: (7 sources) Bee/Wasp/Ant venom Allergy to substance Anaphylaxis (disorder) [facility] (11 sources) corn extract; Translations: [corn] Drug Allergy 5 Eruption of skin (disorder) [facility] (7 sources) HYDROmorphone; Translations: [hydromorphone] Drug Allergy [facility] (7 sources) Promethazine; Translations: [promethazine] Drug Allergy [facility] (7 sources) Purified Protein Derivative of Tuberculin; Translations: [tuberculin purified protein derivative] Drug Allergy Lactose intolerance [facility] (7 sources) Milk Products Food allergy Eruption of skin (disorder) [facility] (7 sources) Tomatoes Food allergy [facility] (7 sources) Apricots Food allergy Eruption of skin (disorder) [facility] (11 sources) Peas; Translations: [peas] Food allergy 5 Eruption of skin (disorder) [facility] (17 sources) Amoxicillin; Translations: [amoxicillin trihydrate] Drug Allergy [address] [facility] (16 sources) HYDROcodone Drug Allergy 9 Unknown [facility] (17 sources) Shellfish; Translations: [shellfish derived] Propensity to adverse reactions [address] [facility] (17 sources) Iodinated Contrast Media; Translations: [Iodinated Contrast Media] Allergy to substance 9 Hives [facility] (17 sources) potassium clavulanate; Translations: [potassium clavulanate] Propensity to adverse reactions [address] [facility] (3 sources) tomato allergenic extract Drug Allergy 5 Other [facility] (4 sources) BCG (Bacillus Calmette-Zohra ) vacc; Translations: [BCG (Bacillus Calmette-Zohra ) vacc] Allergy to substance 4 Other [facility] (3 sources) bee venom protein (honey bee) Allergy to substance 5 Other [facility] (3 sources) Milk Containing Products (Dairy) Allergy to substance 5 Other [facility] (1 source) HYDROcodone Drug Allergy 5 [facility] (1 source) tomato allergenic extract Drug Allergy 5 [facility] (1 source) Milk Containing Products (Dairy) Drug allergy (disorder) 5 [facility] (1 source) bee venom protein (honey bee) Drug allergy (disorder) 5 [facility] Rep[facility] Medications Current Medications Medication Drug [...] Start: 03-23-2016 PERCOCET 5-325 MG TABS OXYCODONE-ACETAMINOPHEN [id number] Karthikeyan Hall Start: 03-23-2016 PERCOCET 5-325 MG TABS OXYCODONE-ACETAMINOPHEN [id number] Karthikeyan Rubén Rafael albuterol 0.83 mg/ml inhalation [...] 50 mg oral tablet (20 sources) beta-Adrenergic Aelm Start: 11-21-19 take 1 tablet by mouth [...] to right ankle diabetic ulcer topically 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 Apply to right ankle diabetic ulcer topically every shift mechanic for DM ulcer COMPOUNDED PRESCRIPTION (20 sources) [...] Start: 03-23-2016 DEXILANT 60 MG CPDR DEXLANSOPRAZOLE [id number] Karthikeyan Hall Comment on above: Take by [...] Discontinued Comment on above: Take by mouth. [id number] 0.3 ml EPINEPHrine 1 mg/ml auto-injector (20 [...] Comment on above: [facility]. Per psychiatry. esomeprazole [...] on above: Take 1 capsule by mo [facility] daily before breakfast. Selena's Docudose. famotidine [...] INH INHALATION DAILY December 18, 2022 12:00am uegkvnlnwxs-gytsedhtd-fziyio er (TRELEGY ELLIPTA) 200-62.5-25 mcg inhalation powder (12 sources) take 1 puff(s) by inhalation once daily jgdgvdskgwn-epwthosds-keqvtvkl (TRELEGY ELLIPTA) 200-62.5-25 mcg inhalation powder Inhale 1 Puff as instructed once daily. Active take 1 puff(s) by in halation once daily ebxomqjihgi-hgvolfrlc-wexxvtph (TRELEGY ELLIPTA) 200-62.5-25 mcg inhalation powder Inhale [...] FLEXTO UCH 100 UNIT/ML SOPN INSULIN DEGLUDEC [id number] Karthikeyan Hall Start: 03-23-2016 TRESIBA FLEXTO UCH 100 UNIT/ML SOPN INSULIN DEGLUDEC [id number] Karthikeyan Hall 1.5 ml insulin glargine 300 [...] 2023 12:00am November 20, 2024 3:10pm Insulin [place], Disposable, (PEN NEEDLE) 29 x 1/2 ndle [...] nasa l route twice daily Ipratropium [place] Active 2 SPRAY INTRANASAL TWICE A DAY [...] Maximum 6 puffs daily. lactobacillus rhamnosus gg [id number] unt oral capsule (3 sources) Start: take [...] IMODIUM A-D 1 MG/7.5ML LIQD LOPERAMIDE HCL [id number] Karthikeyan Hall Start: 03-23-2016 IMODIUM A-D 1 MG/7.5ML LIQD LOPERAMIDE HCL 79344015451 Karthikeyan Hall Comment on above: Take 1 [...] 400 (240 Mg) MG TABS MAGNESIUM OXIDE [id number] Karthikeyan Hall Start: 03-23-2016 MAGNESIUM OXID E 400 (240 Mg) MG TABS MAGNESIUM OXIDE 82437822093 Karthikeyan Hall Comment on above: Take 1 [...] 1 tablet by jessica th once daily. Multivitamins-Sauk als-Lutein (CENTRUM SILVER) tab (20 sources) Start: [...] th daily at bedtime. polyethylene glycol 3350 01640 mg powder for oral solution (20 sources) [...] neuropathy Start: 03-23-2016 take 1 capsule by [facility] twice daily Pregabalin 100 mg capsule Active 100 mg PO TWICE A DAY January 16, 2023 12:00am Comment on above: Take 1 capsule by [facility] twice daily. raNITIdine 150 mg oral tablet [...] TEARS 0.1-0.3 % SOLN ARTIFICIAL TEAR SOLUTION [id number] Karthikeyan Hall ARTIFICIAL TEAR SOLUTION (1 source) Start: 03-23-2016 ARTIFICIAL TEARS 0.1-0.3 % SOLN ARTIFICIAL TEAR SOLUTION 53680783415 Karthikeyan Hall aspirin 81 mg chewable tablet (15 sources) Nonsteroidal Anti-inflammatory Drug Start: 03-23-2016 ASPIRIN 81 MG CHEW ASPIRIN [id number] Karthikeyan Hall Start: 11-03-2013 End: 01-31-2022 take [...] MAXIMUM STRENGTH 525 MG/15ML SUSP BISMUTH SUBSALICYLATE 89610182221 Karthikeyan Montana Rafael Start: 03-23-2016 BISMATROL MAXI MUM STRENGTH 525 MG/15ML SUSP BISMUTH SUBSALICYLATE 89193606780 Karthikeyan Hall Bupivacaine (1 source) Amide Local [...] Start: 03-23-2016 TRULICITY 1.5 MG/0.5ML SOPN DULAGLUTIDE 98160126000 Karthikeyan Hall Start: 03-23-2016 TRULICITY 1.5 MG/0.5ML SOPN DULAGLUTIDE 28493899654 Karthikeyan Hall dyclonine hydrochloride 2 mg oral [...] Start: 11-22-2020 take 1 dose nasal ro cheesh-na once daily in the morning Flonase 50 mcg/inh nasal spray Dose = 2 spray(s), Nostril, each, qAM, 0 Refill(s) Start Date: 02/14/21 Status: Ordered Repeat number: 1 Start: 02-01-2017 take 1 spray(s) nasa l route once daily fluticasone (FLONASE) 50 mcg/actuation nasal spray Use 1 [place] in each nostril once daily. . 0 02/01/2017 Active Start: 03-23-2016 FLONASE ALLERG Y RELIEF 50 MCG/ACT SUSP FLUTICASONE PROPIONATE 91704043722 Karthikeyan Hall Start: 03-23-2016 FLONASE ALLERG Y RELIEF 50 MCG/ACT SUSP FLUTICASONE PROPIONATE 99630250087 Karthikeyan Hall Start: 09-01-2014 take 2 spray(s) nasa l route once daily fluticasone (FLONASE) 50 mcg/actuation nasal spray Indications: Rhinitis Use 2 Sprays in each nostril once daily. 1 Bottle 11 09/01/2014 Active Comment on above: Use 2 Sprays in each nostril once daily. Use 1 [place] in each nostril once daily. . formoterol [...] 03-23-2016 LACTAID 3000 U NIT TABS LACTASE [id number] Karthikeyan Hall LINACLOTIDE (9 sources) Guanylate Cyclase-C Agonist Start: 03-23-2016 LINZESS 145 MCG CAPS LINACLOTIDE 01410785822 Karthikeyan Hall Start: 03-23-2016 LINZESS 145 MC G CAPS LINACLOTIDE 87083482554 Karthikeyan Hall LORazepam 1 mg oral tablet [...] Start: 03-23-2016 SEROQUEL XR 30 0 MG CT23P-FNK QUETIAPINE FUMARATE 55551505987 Karthikeyan Montana Rafael Start: 03-23-2016 SEROQUEL XR 20 0 MG VZ33N-ACJ QUETIAPINE FUMARATE 90184699726 Karthikeyan Montana Rafael Start: 03-23-2016 SEROQUEL XR 20 0 MG AS33Y-QTK QUETIAPINE FUMARATE 48829423489 Karthikeyan Montana Rafael Start: 03-23-2016 SEROQUEL XR 30 0 MG TE28U-CAO QUETIAPINE FUMARATE 00248100446 Karthikeyan Montana Rafael 0.25 mg, 0.5 mg [...] TRAZODONE HCL 150 MG TABS TRAZODONE HCL 78259339971 Karthikeyan Hall vortioxetine 20 mg oral tablet (9 sources) Start: 6 TRINTELLIX 20 MG TABS VORTIOXETINE R 16871302863 Karthikeyan Hall zolpidem tartrate 10 mg oral [...] aftercare (3 sources) Drug therapy finding; Translations: [senior care (current) use of anticoagulants] 09-27-2024 Episodic Other [...] 01-21-2025 FINGERSTICK GLU 279 mg/dL High 74-106 [facility] Comment on above: Result Comment: PAO MARS OF PATIENT CARE PER NURSING PROTOCOL Performed By: #### L 400.0001 #### [facility] [address] [place], [address] EGD Reporton 01-21-2025 EGD Report [facility] Medical Records Department [address] [place] [address] EGD Report MR#: [id number] Acct: [id number] Name: JULIANA MERIDA Rep #: [id number] : 1960 64 From: Fer Simmons DO PCP: Mariah Atkinson MD Status:REG [facility] Patient Name: Juliana Merida Procedure Date: 01/21/2025 [...] pathology results. Procedure Code(s): --- Professional --- 91131, Small intestinal endoscopy, enteroscopy beyond second portion of duodenum, not including ileum; with biopsy, single or multiple CPT copyright 2021 [employer]. All rights reserved. The codes documented in this report are preliminary and upon long chain beamer review may be revised to meet current compliance requirements. Fer Simmons DO 01/21/2025 9:17:41 AM This report has been signed electronically. Number of Addenda: 0 Note Initiated On: 01/21/2025 8:38 AM 01/21/25916 Date (more content not included)... Normal [facility] Glucose measurement at [facility] deOrdered By: Fer Simmons on 01-21-2025 Glucose [Mass/Vol] 279 mg/dL High 74-106 [facility] Comment on above: MANAGEMENT OF PATIEN T CARE PER NURSING PROTOCOL MR/POSTOP.[facility] 01-21-2025 MR/POSTOP.[facility] Medical Records Department [address] [place] [address] Anesthesia Postop Eval I 01/21/25911 MR#: [id number] Acct: [id number] Name: JULIANA MERIDA Rep #: [id number] : 1960 64 From: Yosef Camp PCP: Mariah Atkinson MD Status:REG SDC Y Race: C Location: [place] [address] Anesthesia: Postop Eval I Current Vital Signs [...] Camp Cosigner Signature: Date CC: Signed Normal [facility] MR/[id number] 01-21-2025 MR/POSTOPAN2 [facility] Medical Records Department [address] [place] [address] Anesthesia Postop Eval II 01/21/2549 MR#: [id number] Acct: [id number] Name: JULIANA MERIDA Rep #: [id number] : 1960 64 From: Kimmie Serna CRNA PCP: Mariah Atkinson MD Status:REG [facility] Y Race: C Location: [place] [address] Anesthesia Postop Eval I Sum Postop Eval [...] Date Kimmie Nolasco Signature: Date CC: Signed [facility] 01-20-2025 CNPN Telephone (RHBATH) -------- JULIANA MERIDA ([id number]) 1960 F Date Time Provider Department 01/20/25 FUNMILAYO [facility] During your visit today, we recorded [...] as needed for cough. 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 - insulin glargine,hum.rec.anlog (TOUJEO MAX U-300 SOLOSTAR SUBCUTANEOUS) Inject subcutaneously as directed. - yfgyakemrzj-kalpplsns-qa lanter (TRELEGY ELLIPTA) 200-62.5-25 mcg inhalation powder [...] (FLONASE) 50 mcg/actuation nasal spray Use 1 [place] in each nostril once daily. . - pregabalin (LYRICA) 100 mg capsule Take 1 capsule by mouth (more content not included)... Normal [facility] Gastroenterology Visit Repor ton 11-20-2024 Gastroenterology Visit Report [facility] Gastroenterology [address] [place] [address] OFFICE VISIT Date of Service: 11/20/24 MR#: [id number] Acct: [id number] Name: JULIANA MERIDA Rep #: [id number] : 1960 Provider: KALEIGH sim Age/Sex: 64/F Location: [facility] Status: Signed Intake Vital Signs 09/27/24 01:36 [...] Q12H 01/12 (more content not included)... Normal [facility] Abdomen/Pelvis without Conto n 09-27-2024 Abdomen/Pelvis without Cont [facility] Imaging Services [address] [place], [place] [address] Abdomen/Pelvis without Cont MR#: [id number] Acct: [id number] Name: JULIANA MERIDA Rep #: [id number] : 1960 F 63 From: Jaleel Loaiza MD PCP: Mariah Atkinson MD Status: REG ER Study: Abdomen/Pelvis without Cont Date of Exam: 09/12 01/06 Exam# [id number] Ordering Dr: Gregorio Cochran DO PROCEDURE: ABDOMEN/PELVIS [...] abdominal and pelvic viscera. There is now fbtt-tkqxoox-dtoo-right mild basilar patchy ill-defined ground-glass opacities of [...] dilation or free air. Status post appendectomy. [place] artifact from spinal stimulator device. Aortoiliac atherosclerotic calcification. No abdominal aortic aneurysm. The bladder appears within limits. No free fluid seen. Status post hysterectomy. The ovaries appear within limits on noncontrast imaging. [place] artifact from left femoral gamma nail. Small fat containing left inguinal hernia without stranding again noted. CT/Abdomen/Pelvis without Cont IMPRESSION: There is now tbts-gwgjilz-aslg-right mild basilar patchy ill-defined ground-glass opacities of [...] the liver. Status post cholecystectomy. Reading Location: [facility] CC: Mariah Atkinson MD; Dr. Gregorio Cochran DO Fabrication Engineer: Signed Normal [facility] Absolute lymphocyte countOrd ered By: Gregorio Cochran on 09-27-2024 Lymphocytes Auto (Unsp spec) [#/Vol] 2.73 10*3/uL 0.83-4.51 [facility] Absolute neutrophil countOrd ered By: Gregorio Cochran on 09-27-2024 Neutrophils (Bld) [#/Vol] 6.8 10*3/uL 2.0-7.7 [facility] Anion gap in Serum or Plasma Ordered By: Gregorio Cochran on 09-27-2024 Anion gap [Moles/Vol] 10 mmol/L 5-15 [facility] Automated lymphocyte count a s percentage of total leukocytesOrdered By: Gregorio Cochran on 09-27-2024 Lymphocytes/100 WBC Auto (Unsp spec) 25.9 % 19- [facility] BUN/creatinine ratioOrdered By: Gregorio Cochran on 09-27-2024 Urea nitrogen/Creatinine [Mass ratio] 12.7 mg/mg - [facility] Basic Metabolic Profile (BMP )on 09-27-2024 BUN/CRE 12.7 RATIO Normal - [facility] Comment on above: Performed By: #### L 400.0001 #### [facility] [address] [place], [address] Calcium [Mass/Vol] 9.5 mg/dL Normal 7.6-11.0 [facility] Comment on above: Performed By: #### L 400.0001 #### [facility] [address] [place], [address] Chloride [Moles/Vol] 99 mmol/L Normal 98-108 [facility] Comment on above: Performed By: #### L 400.0001 #### [facility] [address] [place], [address] CO2 [Moles/Vol] 27.1 mmol/L Normal 21.0-32.0 [facility] Comment on above: Performed By: #### L 400.0001 #### [facility] [address] [place], [address] Creatinine [Mass/Vol] 1.37 mg/dL High 0.70-1.20 [facility] Comment on above: Performed By: #### L 400.0001 #### [facility] [address] [place], [address] GAP 10 Normal 5-15 [facility] Comment on above: Performed By: #### L 400.0001 #### [facility] [address] [place], [address] GFR/1.73 sq M.predicted among non-blacks MDRD (S/P/Bld) [Vol rate/Area] 44 mL/min/{1.73_m2} Low >60 [facility] Comment on above: Result Comment: mL/m in/1.73m2 CKD-EPI Creatinine Equation (2020) Performed By: #### L 400.0001 #### [facility] [address] [place], [address] Glucose [Mass/Vol] 254 mg/dL High 70-99 [facility] Comment on above: Performed By: #### L 400.0001 #### [facility] [address] [place], [address] Potassium [Moles/Vol] 4.0 mmol/L Normal 3.3-5.1 [facility] Comment on above: Performed By: #### L 400.0001 #### [facility] [address] [place], [address] Sodium [Moles/Vol] 136 mmol/L Normal 133-145 [facility] Comment on above: Performed By: #### L 400.0001 #### [facility] [address] [place], [address] Urea nitrogen [Mass/Vol] 17 mg/dL Normal 4-19 [facility] Comment on above: Performed By: #### L 400.0001 #### [facility] [address] [place], [address] Basophil percentageOrdered B y: Gregorio Cochran on 09-27-2024 Basophils/100 WBC (Bld) 0.5 % 0-1 [facility] Bilirubin Test strip Ql (U)O rdered By: Gregorio Cochran on 09-27-2024 Bilirubin Ql (U) Negative Negative [facility] CBC W/Diff, Automatedon - Absolute Lymph 2.73 X10 3/uL Normal 0.83-4.51 [facility] Comment on above: Performed By: #### L 400.0001 #### [facility] [address] [place], [address] Absolute Neut 6.8 X10 3/uL Normal 2.0-7.7 [facility] Comment on above: Performed By: #### L 400.0001 #### [facility] [address] [place], [address] Basophils/100 WBC (Bld) 0.5 % Normal 0-1 [facility] Comment on above: Performed By: #### L 400.0001 #### [facility] [address] [place], [address] Eosinophils/100 WBC (Bld) 0.8 % Normal 0-5 [facility] Comment on above: Performed By: #### L 400.0001 #### [facility] [address] [place], [address] Erythrocyte distribution width (RBC) [Ratio] 13.6 % Normal 11.6-14.6 [facility] Comment on above: Performed By: #### L 400.0001 #### [facility] [address] [place], [address] Hematocrit (Bld) [Volume fraction] 43.9 % Normal 37-47 [facility] Comment on above: Performed By: #### L 400.0001 #### [facility] [address] [place], [address] Hemoglobin (Bld) [Mass/Vol] 14.2 g/dL Normal 12.0-15.0 [facility] Comment on above: Performed By: #### L 400.0001 #### [facility] [address] [place], [address] IG% 0.500 Normal 0.0-0.9 [facility] Comment on above: Result Comment: IG% - Immature Granulocytes (promyelocytes, myelocytes and metamyelocytes) > 1% indicates that a LEFT SHIFT is Present. Performed By: #### L 400.0001 #### [facility] [address] [place], [address] Lymphocytes/100 WBC (Bld) 25.9 % Normal 19-41 [facility] Comment on above: Performed By: #### L 400.0001 #### [facility] [address] [place], [address] MCH (RBC) [Entitic mass] 29.3 pg Normal 27.0-32.0 [facility] Comment on above: Performed By: #### L 400.0001 #### [facility] [address] [place], [address] MCHC (RBC) [Mass/Vol] 32.3 g/dL Normal 32-36 [facility] Comment on above: Performed By: #### L 400.0001 #### [facility] [address] [place], [address] MCV (RBC) [Entitic vol] 90.7 fL Normal 81-99 [facility] Comment on above: Performed By: #### L 400.0001 #### [facility] [address] [place], [address] Monocytes/100 WBC (Bld) 7.7 % Normal 0-10 [facility] Comment on above: Performed By: #### L 400.0001 #### [facility] [address] [place], [address] Neutrophils/100 WBC (Bld) 64.6 % Normal 47-70 [facility] Comment on above: Performed By: #### L 400.0001 #### [facility] [address] [place], [address] Nucleated RBC (Bld) [#/Vol] 0 10*3/uL Normal 0-5 [facility] Comment on above: Performed By: #### L 400.0001 #### [facility] [address] [place], [address] Platelet mean volume (Bld) [Entitic vol] 10.1 fL Normal 6.2-12.0 [facility] Comment on above: Performed By: #### L 400.0001 #### [facility] [address] [place], [address] Platelets (Bld) [#/Vol] 214 10*3/uL Normal 150-450 [facility] Comment on above: Performed By: #### L 400.0001 #### [facility] [address] [place], [address] RBC (Bld) [#/Vol] 4.84 10*6/uL Normal 4.2-5.4 [facility] Comment on above: Performed By: #### L 400.0001 #### [facility] [address] [place] [place], [address] RDW SD 44.8 fl High 35.1-43.9 [facility] Comment on above: Performed By: #### L 400.0001 #### [facility] [address] [place] [place], [address] WBC (Bld) [#/Vol] 10.5 10*3/uL Normal 4.4-11.0 [facility] Comment on above: Performed By: #### L 400.0001 #### [facility] [address] [place] [place], [address] Carbon dioxide, total [Moles /volume] in Central venous bloodOrdered By: Gregorio Cochran on 09-27-2024 CO2 [Moles/Vol] 27.1 mmol/L 21.0-32.0 [facility] Chloride assayOrdered By: Miguel Cochran on 09-27-2024 Chloride [Moles/Vol] 99 mmol/L 98-108 [facility] Emergency Department Summary on 09-27-2024 Emergency Department Summary [facility] Medical Records Department [address] [place] [address] Emergency Department Summary 09/27/24 MR#: [id number] Acct: [id number] Name: JULIANA MERIDA YANELI Rep #: [id number] : 1960 63 From: Gregorio Cochran DO PCP: Mariah Atkinson MD Status:DEP ER Location: ED HPI History of Present Illness Chief Complaint: Flank Pain Informant: patient and EMS Narrative Narrative: 63-year-old female from [facility] at [facility] presenting to the emergency room via [...] hematuria PFSH PFSH Medical History Lives in penitentiary Hx of fracture of hip Wears glasses [...] bisacodyl 10 mg rectal suppository 10 mg NM .Q24 PRN PRN constipati on 12/18/22 Unknown [...] 3 mg (more content not included)... Normal [facility] Eosinophil percentageOrdered By: Gregorio Cochran on 09-27-2024 Eosinophils/100 WBC (Bld) 0.8 % 0-5 [facility] Epithelial cells.squamous LM Ql (Urine sed)Ordered By: Gregorio Cochran on 09-27-2024 Epithelial cells.squamous LM.HPF (Urine sed) [#/Area] 0 /[HPF] 5-10 [facility] Erythrocyte distribution wid th ratioOrdered By: Gregorio Cochran on 09-27-2024 Erythrocyte distribution width (RBC) [Ratio] 13.6 % 11.6-14.6 [facility] Erythrocyte distribution wid th standard deviationOrdered By: Gregorio Cochran on 09-27-2024 Erythrocyte distribution width (RBC) [Entitic vol] 44.8 fL High 35.1-43.9 [facility] Erythrocyte distribution width (RBC) [Ratio] 44.8 fl High 35.1-43.9 [facility] GFR/1.73 sq M.predicted augustin g non-blacks MDRD (S/P/Bld) [Vol rate/Area]Ordered By: Gregorio Cochran on 09-27-2024 Estimated GFR (MDRD) Non-Af Amer 44 Low >60 [facility] Comment on above: mL/min/1.73m2 CKD-EP I Creatinine Equation (2020) Glomerular filtration rate ( GFR) estimation/1.73 sq m using serum, plasma, or whole bOrdered By: Gregorio Cochran on 09-27-2024 GFR/1.73 sq M.predicted among non-blacks MDRD (S/P/Bld) [Vol rate/Area] 44 mL/min/{1.73_m2} Low >60 [facility] Comment on above: mL/min/1.73m2 CKD-EP I Creatinine Equation (2020) Glucose Ql (U)Ordered By: Miguel Cochran on 09-27-2024 Urine Glucose (UA) Normal mg/dl Normal [facility] Hematocrit Auto (Bld) [Volum e fraction]Ordered By: Gregorio Cochran on 09-27-2024 Hematocrit (Bld) [Volume fraction] 43.9 % 37-47 [facility] Hemoglobin measurementOrdere d By: Gregorio Cochran on 09-27-2024 Hemoglobin (Bld) [Mass/Vol] 14.2 g/dL 12.0-15.0 [facility] Immature granulocytes/100 WB C Auto (Bld)Ordered By: Gregorio Cochran on 09-27-2024 Immature granulocytes/100 WBC (Bld) 0.500 % 0.0-0.9 [facility] Comment on above: IG% - Immature Granu locytes (promyelocytes, myelocytes and metamyelocytes) > 1% indicates that a LEFT SHIFT is Present. Ketones Test strip Ql (U)Ord ered By: Gregorio Cochran on 09-27-2024 Ketones Ql (U) Negative Negative [facility] Lymphocytes Auto (Unsp spec) [#/Vol]Ordered By: Gregorio Cochran on 09-27-2024 Lymphocytes (Bld) [#/Vol] 2.73 10*3/uL 0.83-4.51 [facility] Lymphocytes/100 WBC Auto (Un sp spec)Ordered By: Gregorio Cochran on 09-27-2024 Lymphocytes/100 WBC (Bld) 25.9 % 19-41 [facility] MCV (mean corpuscular volume ) determinationOrdered By: Gregorio Cochran on 09-27-2024 MCV (RBC) [Entitic vol] 90.7 fL 81-99 [facility] Mean corpuscular hemoglobin (MCH) determinationOrdered By: Gregorio Cochran on 09-27-2024 MCH (RBC) [Entitic mass] 29.3 pg 27.0-32.0 [facility] Mean corpuscular hemoglobin concentration (MCHC) determinationOrdered By: Gregorio Cochran on 09-27-2024 MCHC (RBC) [Mass/Vol] 32.3 g/dL 32-36 [facility] Mean platelet volume determi nationOrdered By: Gregorio Cochran on 09-27-2024 Platelet mean volume (Bld) [Entitic vol] 10.1 fL 6.2-12.0 [facility] Microscopic analysis of urin e for red blood cells (RBC)Ordered By: Gregorio Cochran on 09-27-2024 Microscopic analysis of urine for red blood cells (RBC) 0-5 SEEN /hpf 0-5 [facility] Urine RBC 0-5 SEEN /hpf 0-5 [facility] Monocyte percentageOrdered B y: Gregorio Cochran on 09-27-2024 Monocytes/100 WBC (Bld) 7.7 % 0-10 [facility] Mucus LM Ql (Urine sed)Order ed By: Gregorio Cochran on 09-27-2024 Mucus Ql (Urine sed) 0 SEEN /hpf [facility] Neutrophil percentageOrdered By: Gregorio Cochran on 09-27-2024 Neutrophils/100 WBC (Bld) 64.6 % 47-70 [facility] Nitrite Test strip Ql (U)Ord ered By: Gregorio Cochran on 09-27-2024 Nitrite Ql (U) Negative Negative [facility] Nucleated red blood cell per centageOrdered By: Gregorio Cochran on 09-27-2024 Nucleated RBC/100 WBC (Bld) [Ratio] 0 % 0-5 [facility] Platelet countOrdered By: Miguel Cochran on 09-27-2024 Platelets (Bld) [#/Vol] 214 10*3/uL 150-450 [facility] Potassium (Unsp spec) [Mass/ Vol]Ordered By: Gregorio Cochran on 09-27-2024 Potassium [Moles/Vol] 4.0 mmol/L 3.3-5.1 [facility] Potassium measurement (mass/ volume)Ordered By: Gregorio Cochran on 09-27-2024 Potassium (Unsp spec) [Mass/Vol] 4.0 mmol/L 3.3-5.1 [facility] Protein Test strip Ql (U)Ord ered By: Gregorio Cochran on 09-27-2024 Protein Ql (U) Negative Negative [facility] RBC Auto (Bld) [#/Vol]Ordere d By: Gregorio Cochran on 09-27-2024 RBC (Bld) [#/Vol] 4.84 10*6/uL 4.2-5.4 [facility] Serum creatinine measurement (mass/volume)Ordered By: Gregorio Cochran on 09-27-2024 Creatinine [Mass/Vol] 1.37 mg/dL High 0.70-1.20 [facility] Serum glucose measurement (m ass/volume)Ordered By: Gregorio Cochran on 09-27-2024 Glucose [Mass/Vol] 254 mg/dL High 70-99 [facility] Serum or plasma calcium fabi urement (mass/volume)Ordered By: Gregorio Cochran on 09-27-2024 Calcium [Mass/Vol] 9.5 mg/dL 7.6-11.0 [facility] Serum or plasma urea nitroge n measurement (mass/volume)Ordered By: Gregorio Cochran on 09-27-2024 Urea nitrogen [Mass/Vol] 17 mg/dL 4-19 [facility] Sodium levelOrdered By: Camron Cochran on 09-27-2024 Sodium [Moles/Vol] 136 mmol/L 133-145 [facility] Squamous epithelial cells de tection in urine sediment by light microscopyOrdered By: Gregorio Cochran on 09-27-2024 Epithelial cells.squamous LM Ql (Urine sed) 0-5 SEEN /hpf 5-10 [facility] Urinalysis, Completeon 09-27 BACTERIA 3+ /hpf Normal None Seen [facility] Comment on above: Order Comment: MASHA MCDONNELLOR TO SPECIFY Performed By: #### L 400.0001 #### [facility] [address] [place], [address] EPI,SQUAMOUS 0-5 SEEN Normal 5-10 [facility] Comment on above: Order Comment: MASHA CTOR TO SPECIFY Performed By: #### L 400.0001 #### [facility] [address] [place], [address] RBC 0-5 SEEN Normal 0-5 [facility] Comment on above: Order Comment: COLLE CTOR TO SPECIFY Performed By: #### L 400.0001 #### [facility] [address] [place], [address] WBC 0-5 SEEN Normal 0-5 [facility] Comment on above: Order Comment: COLLE CTOR TO SPECIFY Performed By: #### L 400.0001 #### [facility] [address] [place], [address] Mucus Ql (Urine sed) 0 SEEN Normal [facility] Comment on above: Order Comment: MASHA CTOR TO SPECIFY Performed By: #### L 400.0001 #### [facility] [address] [place], [address] Urine blood detectionOrdered By: Gregorio Cochran on 09-27-2024 Urine Occult Blood 25 /ul High Negative [facility] Urine clarityOrdered By: Kris Cochran on 09-27-2024 Clarity (U) Clear Clear [facility] Urine color determinationOrd ered By: Gregorio Cochran on 09-27-2024 Color (U) Yellow Yellow [facility] Urine glucose detectionOrder ed By: Gregorio Cochran on 09-27-2024 Glucose Ql (U) Normal mg/dl Normal [facility] Urine leukocyte esterase det ection by dipstickOrdered By: Gregorio Cochran on 09-27-2024 Leukocyte esterase Test strip Ql (U) 25 /ul High Negative [facility] Urine pHOrdered By: Gregorio mercer on 09-27-2024 pH (U) 6.5 [pH] 5.0 - 8.0 [facility] Urine sediment bacteria coun t by microscopy (number/high power field)Ordered By: Gregorio Cochran on 09-27-2024 Bacteria LM.HPF (Urine sed) [#/Area] 3 /[HPF] None Seen [facility] Urine specific gravity measu rementOrdered By: Gregorio Dimas on 09-27-2024 Specific gravity (U) [Rel density] 1.010 1.002-1.03 0 [facility] Urine urobilinogen measureme ntOrdered By: Gregorio Dimas on 09-27-2024 Urobilinogen Ql (U) Normal mg/dl Normal [facility] Urobilinogen Ql (U)Ordered B y: Gregorio Cochran on 09-27-2024 Urine Urobilinogen Normal mg/dl Normal [facility] White blood cell (WBC) count Ordered By: Gregorio Cochran on 09-27-2024 WBC (Bld) [#/Vol] 10.5 10*3/uL 4.4-11.0 [facility] White blood cell countOrdere d By: Gregoriorogers Cochran on 09-27-2024 Urine WBC 0-5 SEEN /hpf 0-5 [facility] White blood cell count 0-5 SEEN /hpf 0-5 [facility] Abdomen/Pelvis without Conto n 09-12-2024 Abdomen/Pelvis without Cont [facility] Imaging Services [address] [place] [address] Abdomen/Pelvis without Cont MR#: [id number] Acct: [id number] Name: JULIANA MERIDA Rep #: [id number] : 1960 F 63 From: [facility] Stevenson PCP: Mariah Atkinson MD Status: [facility] ER Study: Abdomen/Pelvis without Cont Date of Exam: 08/08 Exam# [id number] Ordering Dr: Dino Pena MD PROCEDURE: ABDOMEN/PELVIS [...] use of iterative reconstruction technique). Reading Location: [facility] CC: Mariah Atkinson MD; Dr. Dino Pena MD Fabrication Engineer: Signed Normal [facility] Absolute neutrophil countOrd ered By: Dino Pena on 09-12-2024 Neutrophils (Bld) [#/Vol] 13.0 10*3/uL High 2.0-7.7 [facility] Amorphous sediment detection in urine sediment by light microscopyOrdered By: Dino Pena on 09-12-2024 Amorphous sediment LM Ql (Urine sed) 1+ URATE [facility] BUN/creatinine ratioOrdered By: Dino Pena on 09-12-2024 Urea nitrogen/Creatinine [Mass ratio] 16.2 mg/mg 10- [facility] Basic Metabolic Profile (BMP )on 09-12-2024 Anion gap [Moles/Vol] 14 mmol/L Normal 5-15 [facility] Comment on above: Performed By: #### L 100.0100, L500.2500 #### [facility] [address] [place], [place], [address] BUN/CRE 16.2 RATIO Normal - [facility] Comment on above: Performed By: #### L 100.0100, L500.2500 #### [facility] [address] [place], [address] Calcium [Mass/Vol] 9.3 mg/dL Normal 7.6-11.0 [facility] Comment on above: Performed By: #### L 100.0100, L500.2500 #### [facility] [address] [place], [address] Chloride [Moles/Vol] 94 mmol/L Low 96-108 [facility] Comment on above: Performed By: #### L 100.0100, L500.2500 #### [facility] [address] [place], [address] CO2 [Moles/Vol] 23.3 mmol/L Normal 22.0-29.0 [facility] Comment on above: Performed By: #### L 100.0100, L500.2500 #### [facility] [address] [place], [address] Creatinine [Mass/Vol] 1.29 mg/dL High 0.70-1.20 [facility] Comment on above: Performed By: #### L 100.0100, L500.2500 #### [facility] [address] [place], [address] ECRCL 50.34 ml/min Normal 50-250 [facility] Comment on above: Performed By: #### L 100.0100, L500.2500 #### [facility] [address] [place], [address] GFR/1.73 sq M.predicted among non-blacks MDRD (S/P/Bld) [Vol rate/Area] 47 mL/min/{1.73_m2} Low >60 [facility] Comment on above: Result Comment: mL/m in/1.73m2 CKD-EPI Creatinine Equation (2020) Performed By: #### L 100.0100, L500.2500 #### [facility] [address] [place], [address] Glucose [Mass/Vol] 239 mg/dL High 70-99 [facility] Comment on above: Performed By: #### L 100.0100, L500.2500 #### [facility] [address] [place], [address] Potassium [Moles/Vol] 4.3 mmol/L Normal 3.3-5.1 [facility] Comment on above: Performed By: #### L 100.0100, L500.2500 #### [facility] [address] [place], [address] Sodium [Moles/Vol] 132 mmol/L Low 133-145 [facility] Comment on above: Performed By: #### L 100.0100, L500.2500 #### [facility] [address] [place], [address] Urea nitrogen [Mass/Vol] 21 mg/dL High 4-19 [facility] Comment on above: Performed By: #### L 100.0100, L500.2500 #### [facility] [address] [place], [address] Basophil percentageOrdered B y: Dino Pena on 09-12-2024 Basophils/100 WBC (Bld) 0.4 % 0-1 [facility] Bilirubin Test strip Ql (U)O rdered By: Dino Pena on 09-12-2024 Bilirubin Ql (U) Negative Negative [facility] CBC W/Diff, Automatedon 03-0 Absolute Lymph 2.44 X10 3/uL Normal 0.83-4.51 [facility] Comment on above: Performed By: #### L 100.0100, L500.2500 #### [facility] [address] [place], [address] Absolute Neut 13.0 X10 3/uL High 2.0-7.7 [facility] Comment on above: Performed By: #### L 100.0100, L500.2500 #### [facility] [address] [place], [address] Basophils/100 WBC (Bld) 0.4 % Normal 0-1 [facility] Comment on above: Performed By: #### L 100.0100, L500.2500 #### [facility] [address] [place], [address] Eosinophils/100 WBC (Bld) 0.2 % Normal 0-5 [facility] Comment on above: Performed By: #### L 100.0100, L500.2500 #### [facility] [address] [place], [address] Erythrocyte distribution width (RBC) [Ratio] 13.6 % Normal 11.6-14.6 [facility] Comment on above: Performed By: #### L 100.0100, L500.2500 #### [facility] [address] [place], [address] Hematocrit (Bld) [Volume fraction] 45.5 % Normal 37-47 [facility] Comment on above: Performed By: #### L 100.0100, L500.2500 #### [facility] [address] [place], [address] Hemoglobin (Bld) [Mass/Vol] 14.7 g/dL Normal 12.0-15.0 [facility] Comment on above: Performed By: #### L 100.0100, L500.2500 #### [facility] [address] [place], [address] IG% 0.700 Normal 0.0-0.9 [facility] Comment on above: Result Comment: IG% - Immature Granulocytes (promyelocytes, myelocytes and metamyelocytes) > 1% indicates that a LEFT SHIFT is Present. Performed By: #### L 100.0100, L500.2500 #### [facility] [address] [place], [address] Lymphocytes/100 WBC (Bld) 14.6 % Low 19-41 [facility] Comment on above: Performed By: #### L 100.0100, L500.2500 #### [facility] [address] [place], [address] MCH (RBC) [Entitic mass] 28.9 pg Normal 27.0-32.0 [facility] Comment on above: Performed By: #### L 100.0100, L500.2500 #### [facility] [address] [place], [address] MCHC (RBC) [Mass/Vol] 32.3 g/dL Normal 32-36 [facility] Comment on above: Performed By: #### L 100.0100, L500.2500 #### [facility] [address] [place], [address] MCV (RBC) [Entitic vol] 89.4 fL Normal 81-99 [facility] Comment on above: Performed By: #### L 100.0100, L500.2500 #### [facility] [address] [place], [address] Monocytes/100 WBC (Bld) 6.7 % Normal 0-10 [facility] Comment on above: Performed By: #### L 100.0100, L500.2500 #### [facility] [address] [place], [address] Neutrophils/100 WBC (Bld) 77.4 % High 47-70 [facility] Comment on above: Performed By: #### L 100.0100, L500.2500 #### [facility] [address] [place], [address] Nucleated RBC (Bld) [#/Vol] 0 10*3/uL Normal 0-5 [facility] Comment on above: Performed By: #### L 100.0100, L500.2500 #### [facility] [address] [place], [address] Platelet mean volume (Bld) [Entitic vol] 10.2 fL Normal 6.2-12.0 [facility] Comment on above: Performed By: #### L 100.0100, L500.2500 #### [facility] [address] [place], [address] Platelets (Bld) [#/Vol] 272 10*3/uL Normal 150-450 [facility] Comment on above: Performed By: #### L 100.0100, L500.2500 #### [facility] [address] [place], [address] RBC (Bld) [#/Vol] 5.09 10*6/uL Normal 4.2-5.4 [facility] Comment on above: Performed By: #### L 100.0100, L500.2500 #### [facility] [address] [place], [address] RDW SD 44.4 fl High 35.1-43.9 [facility] Comment on above: Performed By: #### L 100.0100, L500.2500 #### [facility] [address] [place], [address] WBC (Bld) [#/Vol] 16.8 10*3/uL High 4.4-11.0 [facility] Comment on above: Performed By: #### L 100.0100, L500.2500 #### [facility] [address] [place], [address] Carbon dioxide measurementOr dered By: Dino Pena on 09-12-2024 CO2 [Moles/Vol] 23.3 mmol/L 22.0-29.0 [facility] Chloride measurementOrdered By: Dino Pena on 09-12-2024 Chloride [Moles/Vol] 94 mmol/L Low 96-108 [facility] Emergency Department Summary on 09-12-2024 Emergency Department Summary [facility] Medical Records Department [address] [place] [address] Emergency Department Summary 09/12/24 MR#: [id number] Acct: [id number] Name: JULIANA MERIDA Rep #: [id number] : 1960 63 From: Dino Pena MD PCP: Mariah Atkinson MD Status:DEP ER Location: ED HPI HPI - GI History of Present Illness Chief Complaint: Flank Pain Informant: patient and EMS Narrative Narrative: 63[facility] presenting with pain in her right [...] ago. She has seen a urologist in [place] but she cannot remember who it was. She denies any hematuria she is on Eliquis. She denies any cough, shortness of breath, fevers or chills or other symptoms. [facility] Medical History [facility] in [facility]itent[facility] Hx of fracture of hip Wears glasses [...] bisacodyl 10 mg rectal suppository 10 mg NM .Q24 PRN PRN constipati on 12/18/22 Unknown [...] 12/18/22 Un (more content not included)... Normal [facility] Eosinophil percentageOrdered By: Dino Pena on 09-12-2024 Eosinophils/100 WBC (Bld) 0.2 % 0-5 [facility] Epithelial cells.squamous LM Ql (Urine sed)Ordered By: Dino Pena on 09-12-2024 Epithelial cells.squamous LM.HPF (Urine sed) [#/Area] 0 /[HPF] 5-10 [facility] Erythrocyte distribution wid th ratioOrdered By: Dino Pena on 09-12-2024 Erythrocyte distribution width (RBC) [Ratio] 13.6 % 11.6-14.6 [facility] Erythrocyte distribution wid th standard deviationOrdered By: Dino Pena on 09-12-2024 Erythrocyte distribution width (RBC) [Entitic vol] 44.4 fL High 35.1-43.9 [facility] Estimation of creatinine bret aranceOrdered By: Dino Pena on 09-12-2024 Estimated Creatinine Clearance Calc 50.34 ml/min 50-250 [facility] GFR/1.73 sq M.predicted augustin g non-blacks MDRD (S/P/Bld) [Vol rate/Area]Ordered By: Dino Pena on 09-12-2024 Estimated GFR (MDRD) Non-Af Amer 47 Low >60 [facility] Comment on above: mL/min/1.73m2 CKD-EP I Creatinine Equation (2020) Glucose Ql (U)Ordered By: Navya Pena on 09-12-2024 Urine Glucose (UA) Normal mg/dl Normal [facility] Hematocrit Auto (Bld) [Volum e fraction]Ordered By: Dino Pena on 09-12-2024 Hematocrit (Bld) [Volume fraction] 45.5 % 37-47 [facility] Hemoglobin measurementOrdere d By: Dino Pena on 09-12-2024 Hemoglobin (Bld) [Mass/Vol] 14.7 g/dL 12.0-15.0 [facility] Immature granulocytes/100 WB C Auto (Bld)Ordered By: Dino Pena on 09-12-2024 Immature granulocytes/100 WBC (Bld) 0.700 % 0.0-0.9 [facility] Comment on above: IG% - Immature Granu locytes (promyelocytes, myelocytes and metamyelocytes) > 1% indicates that a LEFT SHIFT is Present. Ketones Test strip Ql (U)Ord ered By: Dino Pena on 09-12-2024 Ketones Ql (U) Negative Negative [facility] Lymphocytes Auto (Unsp spec) [#/Vol]Ordered By: Dino Pena on 09-12-2024 Lymphocytes (Bld) [#/Vol] 2.44 10*3/uL 0.83-4.51 [facility] Lymphocytes/100 WBC Auto (Un sp spec)Ordered By: Dino Pena on 09-12-2024 Lymphocytes/100 WBC (Bld) 14.6 % Low 19-41 [facility] MCV (mean corpuscular volume ) determinationOrdered By: Dino Pena on 09-12-2024 MCV (RBC) [Entitic vol] 89.4 fL 81-99 [facility] Mean corpuscular hemoglobin (MCH) determinationOrdered By: Dino Pena on 09-12-2024 MCH (RBC) [Entitic mass] 28.9 pg 27.0-32.0 [facility] Mean corpuscular hemoglobin concentration (MCHC) determinationOrdered By: Dino Pena on 09-12-2024 MCHC (RBC) [Mass/Vol] 32.3 g/dL 32-36 [facility] Mean platelet volume determi nationOrdered By: Dino Pena on 09-12-2024 Platelet mean volume (Bld) [Entitic vol] 10.2 fL 6.2-12.0 [facility] Microscopic analysis of urin e for red blood cells (RBC)Ordered By: Dino Pena on 09-12-2024 Urine RBC 25-50 SEEN /hpf 0-5 [facility] Monocyte percentageOrdered B y: Dino Pena on 09-12-2024 Monocytes/100 WBC (Bld) 6.7 % 0-10 [facility] Mucus LM Ql (Urine sed)Order ed By: Dino Pena on 09-12-2024 Mucus Ql (Urine sed) 0 SEEN /hpf [facility] Neutrophil percentageOrdered By: Dino Pena on 09-12-2024 Neutrophils/100 WBC (Bld) 77.4 % High 47-70 [facility] Nitrite Test strip Ql (U)Ord ered By: Dino Pena on 09-12-2024 Nitrite Ql (U) Negative Negative [facility] Nucleated red blood cell per centageOrdered By: Dino Pena on 09-12-2024 Nucleated RBC/100 WBC (Bld) [Ratio] 0 % 0-5 [facility] Platelet countOrdered By: Navya Pena on 09-12-2024 Platelets (Bld) [#/Vol] 272 10*3/uL 150-450 [facility] Protein Test strip Ql (U)Ord ered By: Dino Pena on 09-12-2024 Protein Ql (U) 15 mg/dl High Negative [facility] RBC Auto (Bld) [#/Vol]Ordere d By: Dino Pena on 03-01-2025 RBC (Bld) [#/Vol] 5.09 10*6/uL 4.2-5.4 [facility] Serum creatinine measurement (mass/volume)Ordered By: Dino Pena on 09-12-2024 Creatinine [Mass/Vol] 1.29 mg/dL High 0.70-1.20 [facility] Serum glucose measurement (m ass/volume)Ordered By: Dino Pena on 09-12-2024 Glucose [Mass/Vol] 239 mg/dL High 70-99 [facility] Serum or plasma anion gap de termination (moles/volume)Ordered By: Dino Pena on 09-12-2024 Anion gap [Moles/Vol] 14 mmol/L 5-15 [facility] Serum or plasma calcium fabi urement (mass/volume)Ordered By: Dino Pena on 09-12-2024 Calcium [Mass/Vol] 9.3 mg/dL 7.6-11.0 [facility] Serum or plasma potassium me asurementOrdered By: Dino Pena on 09-12-2024 Potassium [Moles/Vol] 4.3 mmol/L 3.3-5.1 [facility] Serum or plasma sodium measu rement (moles/volume)Ordered By: Dino Pena on 09-12-2024 Sodium [Moles/Vol] 132 mmol/L Low 133-145 [facility] Serum or plasma urea nitroge n measurement (mass/volume)Ordered By: Dino Pena on 09-12-2024 Urea nitrogen [Mass/Vol] 21 mg/dL High 4-19 [facility] Urinalysis, Completeon 09-12 AMORPHOUS 1+ URATE Normal [facility] Comment on above: Order Comment: MASHA MCDONNELLOR TO SPECIFY Performed By: #### L 400.0001 #### [facility] [address] [address] [place], [place], [id number] EPI,SQUAMOUS 0-5 SEEN Normal 5-10 [facility] Comment on above: Order Comment: MASHA MCDONNELLOR TO SPECIFY Performed By: #### L 400.0001 #### [facility] [address] [place], [address] RBC 25-50 SEEN Normal 0-5 [facility] Comment on above: Order Comment: MASHA CTOR TO SPECIFY Performed By: #### L 400.0001 #### [facility] [address] [place], [address] WBC 0-5 SEEN Normal 0-5 [facility] Comment on above: Order Comment: MASHA CTOR TO SPECIFY Performed By: #### L 400.0001 #### [facility] [address] [place], [address] BACTERIA 0 SEEN Normal None Seen [facility] Comment on above: Order Comment: MASHA CTOR TO SPECIFY Performed By: #### L 400.0001 #### [facility] [address] [place], [address] Mucus Ql (Urine sed) 0 SEEN Normal [facility] Comment on above: Order Comment: MASHA CTOR TO SPECIFY Performed By: #### L 400.0001 #### [facility] [address] [place], [address] Urine blood detectionOrdered By: Dino Pena on 09-12-2024 Urine Occult Blood 250 /ul High Negative [facility] Urine clarityOrdered By: Migdalia Pena on 09-12-2024 Clarity (U) Sl. Cloudy Clear [facility] Urine color determinationOrd ered By: Dino Pena on 09-12-2024 Color (U) Yellow Yellow [facility] Urine leukocyte esterase det ection by dipstickOrdered By: Dino Pena on 09-12-2024 Leukocyte esterase Test strip Ql (U) 25 /ul High Negative [facility] Urine pHOrdered By: Dino Pena on 09-12-2024 pH (U) 5.0 [pH] 5.0 - 8.0 [facility] Urine sediment bacteria coun t by microscopy (number/high power field)Ordered By: Dino Pena on 09-12-2024 Bacteria LM.HPF (Urine sed) [#/Area] 0 /[HPF] None Seen [facility] Urine specific gravity measu rementOrdered By: Dino Pena on 09-12-2024 Specific gravity (U) [Rel density] 1.020 1.002-1.03 0 [facility] Urobilinogen Ql (U)Ordered B y: Dino Pena on 09-12-2024 Urine Urobilinogen Normal mg/dl Normal [facility] White blood cell (WBC) count Ordered By: Dino Pena on 09-12-2024 WBC (Bld) [#/Vol] 16.8 10*3/uL High 4.4-11.0 [facility] White blood cell countOrdere d By: Dino Becky on 09-12-2024 Urine WBC 0-5 SEEN /hpf 0-5 [facility] CNPNon 07-16-2024 CNPN Telephone (AGRHEUHWN ) -------- JULIANA MERIDA ([id number]) 1960 F Date Time Provider Department 07/16/24 FUNMILAYO POPE During your visit today, we recorded the following information about you: Sandra Dunn 07/16/2024 9:45 AM Signed Prolia- Bath Approved [id number] [facility] Medicare/Portal 07.15.24-07.15.25 2 visits [employer] Allergies As of Date: 07/16/2024 Noted Allergy [...] Medication Preauthorization [914] Cmt: Prolia- Bath Approved [id number] [facility] Medicare/Portal 07.15.24-07.15.25 2 visits Prescriptions as [...] as needed for cough. 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 - insulin glargine,hum.rec.anlog (TOUJEO MAX U-300 SOLOSTAR SUBCUTANEOUS) Inject subcutaneously as directed. - rzbijgqbgaw-suyqjaqwb-jq lanter (TRELEGY ELLIPTA) 200-62.5-25 mcg inhalation powder [...] 50 mcg/actuation (more content not included)... Normal [facility] MA MAMMOGRAM SCREENING BILAT ERAL W/TOMOon 06-05-2024 MA MAMMOGRAM SCREENING BILATERAL W/SHEREE ORIGINAL FROM: [address] [address] PROCEDURE FOR: JULIANA MERIDA [address] [place] [address] Home: PID#: [id number] Exam#: [id number] : 1960 Age: 63 TO: FLORENTIN HANSEN [facility]LY [facility] [address] [place] [address] EXAMINATION: SCREENING DIGITAL BILATERAL MAMMOGRAM WITH TOMOSYNTHESIS, [...] addition to annual mammographic screening per the [employer]. BIRADS: BI-RADS: 2: Benign RECALL: 1 year screening RECALL TYPE: mammo LETTER SENT: Normal BI-RADS 1 and 2 Interpreted by: Suresh Ruiz MD Preliminary Report By: Suresh Ruiz MD Electronically signed By Suresh Ruiz MD Dictated Date: 06/05/2024 3:28:32 PM Prelim Date: 06/05/2024 3:30:24 PM Sign Date: 06/05/2024 3:30:24 PM Ordering Provider: FLORENTIN HANSEN CLINICAL: BASELINE. Hospice Physician: LASHONDA CHAN RT(R)(M) letter sent: Normal BI-RADS 1 and 2 Mammogram BI-RADS: 2 Benign Normal [facility] Abdomen/Pelvis without Conto n 04-08-2024 Abdomen/Pelvis without Cont [facility] Imaging Services [address] [place] [address] [id number] Abdomen/Pelvis without Cont MR#: [id number] Acct: [id number] Name: JULIANA MERIDA Rep #: [id number] : 1960 F 63 From: Rancho Mares MD PCP: Bianca Palomares MD Status: DEP ER Study: Abdomen/Pelvis without Cont Date of Exam: 03/16 12/05 Exam# [id number] Ordering Dr: Rancho Orozco DO [id number] EXAM: CT ABDOMEN AND PELVIS WITHOUT INTRAVENOUS [...] CC: Rancho Orozco DO; Bianca Palomares MD Fabrication Engineer: Signed Normal [facility] Basic Metabolic Profile (BMP )on 04-08-2024 BUN/CRE 19.6 RATIO Normal 10-20 [facility] Comment on above: Order Comment: RESUL T(S) PREVIOUSLY REPORTED ON MANUAL REQUISITION DURINGDOWNTIME. Performed By: #### L 100.0100, L500.2500, L400.0001 ####[facility] [address] [place], [address] CA,Total 9.3 mg/dL Normal 8.5-10.1 [facility] Comment on above: Order Comment: RESUL T(S) PREVIOUSLY REPORTED ON MANUAL REQUISITION DURINGDOWNTIME. Performed By: #### L 100.0100, L500.2500, L400.0001 ####[facility] [address] [place], [address] Chloride [Moles/Vol] 101 mmol/L Normal 98-107 [facility] Comment on above: Order Comment: RESUL T(S) PREVIOUSLY REPORTED ON MANUAL REQUISITION DURINGDOWNTIME. Performed By: #### L 100.0100, L500.2500, L400.0001 ####[facility] [address] [place], [address] CO2 [Moles/Vol] 29.0 mmol/L Normal 21.0-32.0 [facility] Comment on above: Order Comment: RESUL T(S) PREVIOUSLY REPORTED ON MANUAL REQUISITION DURINGDOWNTIME. Performed By: #### L 100.0100, L500.2500, L400.0001 ####[facility] [address] [place], [address] Creatinine [Mass/Vol] 1.02 mg/dL Normal 0.55-1.02 [facility] Comment on above: Order Comment: RESUL T(S) PREVIOUSLY REPORTED ON MANUAL REQUISITION DURINGDOWNTIME. Result Comment: The validity of the calculated GFR GFRAA in patients over 70 years has not been determined. Clinical correlation is essential. Performed By: #### L 100.0100, L500.2500, L400.0001 ####[facility] [address] [place], [address] ECRCL 62.65 ml/min Normal [facility] Comment on above: Order Comment: RESUL T(S) PREVIOUSLY REPORTED ON MANUAL REQUISITION DURINGDOWNTIME. Performed By: #### L 100.0100, L500.2500, L400.0001 ####[facility] [address] [place], [address] EST GFR - AA 70 mL/min Normal >60 [facility] Comment on above: Order Comment: RESUL T(S) PREVIOUSLY REPORTED ON MANUAL REQUISITION DURINGDOWNTIME. Performed By: #### L 100.0100, L500.2500, L400.0001 ####[facility] [address] [place], [address] GAP 7 Normal 5-15 [facility] Comment on above: Order Comment: RESUL T(S) PREVIOUSLY REPORTED ON MANUAL REQUISITION DURINGDOWNTIME. Performed By: #### L 100.0100, L500.2500, L400.0001 ####[facility] [address] [place], [address] GFR/1.73 sq M.predicted among non-blacks MDRD (S/P/Bld) [Vol rate/Area] 58 mL/min/{1.73_m2} Low >60 [facility] Comment on above: Order Comment: RESUL T(S) PREVIOUSLY REPORTED ON MANUAL REQUISITION DURINGDOWNTIME. Performed By: #### L 100.0100, L500.2500, L400.0001 ####[facility] [address] [place], [address] Glucose [Mass/Vol] 135 mg/dL High 74-106 [facility] Comment on above: Order Comment: RESUL T(S) PREVIOUSLY REPORTED ON MANUAL REQUISITION DURINGDOWNTIME. Result Comment: Fast ing Glucose result greater than or equal to 126 mg/dL suggests DIABETES MELLITUS per A.D.A. criteria. Performed By: #### L 100.0100, L500.2500, L400.0001 ####[facility] [address] [place], [address] Potassium [Moles/Vol] 3.3 mmol/L Low 3.5-5.1 [facility] Comment on above: Order Comment: RESUL T(S) PREVIOUSLY REPORTED ON MANUAL REQUISITION DURINGDOWNTIME. Performed By: #### L 100.0100, L500.2500, L400.0001 ####[facility] [address] [place], [address] Sodium [Moles/Vol] 137 mmol/L Normal 136-145 [facility] Comment on above: Order Comment: RESUL T(S) PREVIOUSLY REPORTED ON MANUAL REQUISITION DURINGDOWNTIME. Performed By: #### L 100.0100, L500.2500, L400.0001 ####[facility] [address] [place], [address] Urea nitrogen [Mass/Vol] 20 mg/dL High 7-18 [facility] Comment on above: Order Comment: RESUL T(S) PREVIOUSLY REPORTED ON MANUAL REQUISITION DURINGDOWNTIME. Performed By: #### L 100.0100, L500.2500, L400.0001 ####[facility] [address] [place], [address] CBC W/Diff, Automatedon -2 5-202 Basophils/100 WBC (Bld) 0.4 % Normal 0-1 [facility] Comment on above: Performed By: #### L 100.0100, L500.2500, L400.0001 ####[facility] [address] [place], [address] Eosinophils/100 WBC (Bld) 0.6 % Normal 0-5 [facility] Comment on above: Performed By: #### L 100.0100, L500.2500, L400.0001 ####[facility] [address] [place], [address] IG% 0.800 Normal 0.0-0.9 [facility] Comment on above: Result Comment: IG% - Immature Granulocytes (promyelocytes, myelocytes and metamyelocytes) > 1% indicates that a LEFT SHIFT is Present. Performed By: #### L 100.0100, L500.2500, L400.0001 ####[facility] [address] [place], [address] Lymphocytes/100 WBC (Bld) 22.9 % Normal 19-41 [facility] Comment on above: Performed By: #### L 100.0100, L500.2500, L400.0001 ####[facility] [address] [place], [address] Monocytes/100 WBC (Bld) 6.9 % Normal 0-10 [facility] Comment on above: Performed By: #### L 100.0100, L500.2500, L400.0001 ####[facility] [address] [place], [address] Neutrophils/100 WBC (Bld) 68.4 % Normal 47-70 [facility] Comment on above: Performed By: #### L 100.0100, L500.2500, L400.0001 ####[facility] [address] [place], [address] Erythrocyte distribution width (RBC) [Ratio] 13.5 % Normal 11.6-14.6 [facility] Comment on above: Performed By: #### L 100.0100, L500.2500, L400.0001 ####[facility] [address] [place], [address] Hematocrit (Bld) [Volume fraction] 42.9 % Normal 37-47 [facility] Comment on above: Performed By: #### L 100.0100, L500.2500, L400.0001 ####[facility] [address], [address] Hemoglobin (Bld) [Mass/Vol] 14.5 g/dL Normal 12.0-15.0 [facility] Comment on above: Performed By: #### L 100.0100, L500.2500, L400.0001 ####[facility] [address] [place], [address] MCH (RBC) [Entitic mass] 29.7 pg Normal 27.0-32.0 [facility] Comment on above: Performed By: #### L 100.0100, L500.2500, L400.0001 ####[facility] [address] [place], [address] MCHC (RBC) [Mass/Vol] 33.8 g/dL Normal 32-36 [facility] Comment on above: Performed By: #### L 100.0100, L500.2500, L400.0001 ####[facility] [address] [place], [address] MCV (RBC) [Entitic vol] 87.9 fL Normal 81-99 [facility] Comment on above: Performed By: #### L 100.0100, L500.2500, L400.0001 ####[facility] [address] [place], [address] Platelet mean volume (Bld) [Entitic vol] 9.9 fL Normal 6.2-12.0 [facility] Comment on above: Performed By: #### L 100.0100, L500.2500, L400.0001 ####[facility] [address] [place], [address] Platelets (Bld) [#/Vol] 200 10*3/uL Normal 150-450 [facility] Comment on above: Performed By: #### L 100.0100, L500.2500, L400.0001 ####[facility] [address] [place], [address] RBC (Bld) [#/Vol] 4.88 10*6/uL Normal 4.2-5.4 [facility] Comment on above: Performed By: #### L 100.0100, L500.2500, L400.0001 ####[facility] [address] [place], [address] RDW SD 43.8 fl Normal 35.1-43.9 [facility] Comment on above: Performed By: #### L 100.0100, L500.2500, L400.0001 ####[facility] [address] [place], [address] WBC (Bld) [#/Vol] 13.4 10*3/uL High 4.4-11.0 [facility] Comment on above: Performed By: #### L 100.0100, L500.2500, L400.0001 ####[facility] [address] [place], [address] Emergency Department Summary on 04-08-2024 Emergency Department Summary [facility] Medical Records Department [address] [facility] [place] [address] Emergency Department Summary 04/08/24 MR#: [id number] Acct: [id number] Name: JULIANA MERIDA YANELI Rep #: [id number] : 1960 63 From: Rancho Orozco DO [...] retention she was sent in for evaluation. [facility] Medical History [place] Hx of fracture of hip Wears glasses [...] bisacodyl 10 mg rectal suppository 10 mg NM .Q24 PRN PRN constipation 12/18/22 Unknown History [...] Unknown History (more content not included)... Normal [facility] Urinalysis, Completeon 04-08 LEUK ESTERASE Negative Normal Negative [facility] Comment on above: Order Comment: RESUL T(S) PREVIOUSLY REPORTED ON MANUAL REQUISITION DURINGDOWNTIME.CLEAN CATCH Performed By: #### L 100.0100, L500.2500, L400.0001 ####[facility] [address] [place], [address] Nitrite Ql (U) Negative Normal Negative [facility] Comment on above: Order Comment: RESUL T(S) PREVIOUSLY REPORTED ON MANUAL REQUISITION DURINGDOWNTIME.CLEAN CATCH Performed By: #### L 100.0100, L500.2500, L400.0001 ####[facility] [address] [place], [address] OCCULT BLOOD-UR Negative Normal Negative [facility] Comment on above: Order Comment: RESUL T(S) PREVIOUSLY REPORTED ON MANUAL REQUISITION DURINGDOWNTIME.CLEAN CATCH Performed By: #### L 100.0100, L500.2500, L400.0001 ####[facility] [address] [place], [address] pH UR 7.0 Normal 5.0 - 8.0 [facility] Comment on above: Order Comment: RESUL T(S) PREVIOUSLY REPORTED ON MANUAL REQUISITION DURINGDOWNTIME.CLEAN CATCH Performed By: #### L 100.0100, L500.2500, L400.0001 ####[facility] [address] [place], [address] PROT DIPSTX Negative Normal Negative [facility] Comment on above: Order Comment: RESUL T(S) PREVIOUSLY REPORTED ON MANUAL REQUISITION DURINGDOWNTIME.CLEAN CATCH Performed By: #### L 100.0100, L500.2500, L400.0001 ####[facility] [address] [place], [address] SP.GR. DIPSTX 1.005 Normal 1.002-1.03 0 [facility] Comment on above: Order Comment: RESUL T(S) PREVIOUSLY REPORTED ON MANUAL REQUISITION DURINGDOWNTIME.CLEAN CATCH Performed By: #### L 100.0100, L500.2500, L400.0001 ####[facility] [address] [place], [address] UROBILI Normal Normal Normal [facility] Comment on above: Order Comment: RESUL T(S) PREVIOUSLY REPORTED ON MANUAL REQUISITION DURINGDOWNTIME.CLEAN CATCH Performed By: #### L 100.0100, L500.2500, L400.0001 ####[facility] [address] [place], [address] BILIRUBIN URINE Negative Normal Negative [facility] Comment on above: Order Comment: RESUL T(S) PREVIOUSLY REPORTED ON MANUAL REQUISITION DURINGDOWNTIME.CLEAN CATCH Performed By: #### L 100.0100, L500.2500, L400.0001 ####[facility] [address] [place], [address] Clarity (U) Clear Normal Clear [facility] Comment on above: Order Comment: RESUL T(S) PREVIOUSLY REPORTED ON MANUAL REQUISITION DURINGDOWNTIME.CLEAN CATCH Performed By: #### L 100.0100, L500.2500, L400.0001 ####[facility] [address] [place], [address] Color (U) YELLOW Normal Yellow [facility] Comment on above: Order Comment: RESUL T(S) PREVIOUSLY REPORTED ON MANUAL REQUISITION DURINGDOWNTIME.CLEAN CATCH Performed By: #### L 100.0100, L500.2500, L400.0001 ####[facility] [address] [place], [address] GLUCOSE, UR Negative Normal Normal [facility] Comment on above: Order Comment: RESUL T(S) PREVIOUSLY REPORTED ON MANUAL REQUISITION DURINGDOWNTIME.CLEAN CATCH Performed By: #### L 100.0100, L500.2500, L400.0001 ####[facility] [address] [place], [address] KETONE UR Negative Normal Negative [facility] Comment on above: Order Comment: RESUL T(S) PREVIOUSLY REPORTED ON MANUAL REQUISITION DURINGDOWNTIME.CLEAN CATCH Performed By: #### L 100.0100, L500.2500, L400.0001 ####[facility] [address] [place], [address] BACTERIA 0 SEEN Normal None Seen [facility] Comment on above: Order Comment: RESUL T(S) PREVIOUSLY REPORTED ON MANUAL REQUISITION DURINGDOWNTIME.CLEAN CATCH Performed By: #### L 100.0100, L500.2500, L400.0001 ####[facility] [address] [place], [address] EPI,SQUAMOUS 0 SEEN Normal 5-10 [facility] Comment on above: Order Comment: RESUL T(S) PREVIOUSLY REPORTED ON MANUAL REQUISITION DURINGDOWNTIME.CLEAN CATCH Performed By: #### L 100.0100, L500.2500, L400.0001 ####[facility] [address] [place], [address] Mucus Ql (Urine sed) 0 SEEN Normal [facility] Comment on above: Order Comment: RESUL T(S) PREVIOUSLY REPORTED ON MANUAL REQUISITION DURINGDOWNTIME.CLEAN CATCH Performed By: #### L 100.0100, L500.2500, L400.0001 ####[facility] [address] [place], [address] RBC 0 SEEN Normal 0-5 [facility] Comment on above: Order Comment: RESUL T(S) PREVIOUSLY REPORTED ON MANUAL REQUISITION DURINGDOWNTIME.CLEAN CATCH Performed By: #### L 100.0100, L500.2500, L400.0001 ####[facility] [address] [place], [address] WBC 0 SEEN Normal 0-5 [facility] Comment on above: Order Comment: RESUL T(S) PREVIOUSLY REPORTED ON MANUAL REQUISITION DURINGDOWNTIME.CLEAN CATCH Performed By: #### L 100.0100, L500.2500, L400.0001 ####[facility] [address] [place], [address] [facility] -------- JULIANA MERIDA ([id number]) 1960 F Date Time Provider Department 03/23/24 [...] AND Alexsandra in O[facility]'s office a [employer] chat message letting them know patient was [...] as needed for cough. 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 - insulin glargine,hum.rec.anlog (TOUJEO MAX U-300 SOLOSTAR SUBCUTANEOUS) Inject subcutaneously as directed. - ywotrcdsvjp-ejepwedjg-mw lanter (TRELEGY ELLIPTA) 200-62.5-25 mcg inhalation powder [...] 20 mg (more content not included)... Normal [facility] CNPN Telephone ([employer]) -------- JULIANA MERIDA ([id number]) 1960 F Date Time Provider Department 03/23/24 [...] as needed for cough. 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 - insulin glargine,hum.rec.anlog (TOUJEO MAX U-300 SOLOSTAR SUBCUTANEOUS) Inject subcutaneously as directed. - rpatitgqjqj-vwhmyuozr-ru lanter (TRELEGY ELLIPTA) 200-62.5-25 mcg inhalation powder [...] (FLONASE) 50 mcg/actuation nasal spray Use 1 [place] in each nostril once daily. . - pregabalin (LYRICA) 100 mg capsule Take 1 capsule by mouth twice daily. - magnesium oxide (MAG-OX) 400 mg tablet Take 1 tablet by mouth once daily. - multivitamin tablet Take 1 tab (more content not included)... Normal [facility] Bedside Glucoseon 03-22-2024 FINGERSTICK GLU 158 mg/dL High 74-106 [facility] Comment on above: Result Comment: PAO MARS OF PATIENT CARE PER NURSING PROTOCOL Performed By: #### L 400.0001 #### [facility] [address] [facility] [address] [place], [place], [id number] 12 Lead EKGon 03-21-2024 12 Lead EKG [facility] Cardiovascular Services [address] [place] [address] 12 Lead EKG 03/21/24 194 MR#: [id number] Acct: [id number] Name: JULIANA MERIDA Rep #: [id number] : 1960 63 From: Kurt Justice MD [...] Borderline ECG Confirmed by KURT JUSTICE MD ([id number]), telegraph editor SVETA STILES ([id number]) on 03/23/2024 6:45:07 AM Referred By: AR Confirmed By:KURT JUSTICE MD 03/23/24 0645 Date Kurt Justice MD CC: Dr. Oswaldo Lo MD; Bianca Palomares MD Signed Normal [facility] 12 Lead EKG [facility] Cardiovascular Services [address] [place] [address] 12 Lead EKG 03/21/24 2110 MR#: [id number] Acct: [id number] Name: JULIANA MERIDA YANELI Rep #: [id number] : 1960 63 From: Kurt Justice MD [...] Borderline ECG Confirmed by KURT JUSTICE MD ([id number]), editor STILES SVETA ([id number]) on 03/23/2024 6:44:53 AM Referred By: Confirmed By:KURT JUSTICE MD 03/23/24 0644 Date Kurt Justice MD CC: Dr. Oswadlo Lo MD; Bianca Palomares MD Signed Normal [facility] Basic Metabolic Profile (BMP )on 03-21-2024 BUN/CRE 15.2 RATIO Normal 10-20 [facility] Comment on above: Order Comment: COLLE CTOR TO SPECIFY Performed By: #### L 400.0001 #### [facility] [address] [place], [address] CA,Total 9.7 mg/dL Normal 8.5-10.1 [facility] Comment on above: Order Comment: MASHA CTOR TO SPECIFY Performed By: #### L 400.0001 #### [facility] [address] [place], [address] Chloride [Moles/Vol] 106 mmol/L Normal 98-107 [facility] Comment on above: Order Comment: MASHA CTOR TO SPECIFY Performed By: #### L 400.0001 #### [facility] [address] [place], [address] CO2 [Moles/Vol] 25.0 mmol/L Normal 21.0-32.0 [facility] Comment on above: Order Comment: COLLE CTOR TO SPECIFY Performed By: #### L 400.0001 #### [facility] [address] [place], [address] Creatinine [Mass/Vol] 0.86 mg/dL Normal 0.55-1.02 [facility] Comment on above: Order Comment: MASHA CTOR TO SPECIFY Result Comment: The validity of the calculated GFR GFRAA in patients over 70 years has not been determined. Clinical correlation is essential. Performed By: #### L 400.0001 #### [facility] [address] [place], [address] ECRCL 74.91 ml/min Normal [facility] Comment on above: Order Comment: MASHA CTOR TO SPECIFY Performed By: #### L 400.0001 #### [facility] [address] [place], [address] EST GFR - AA 86 mL/min Normal >60 [facility] Comment on above: Order Comment: MASHA CTOR TO SPECIFY Result Comment: Afri can Stateless GFR Calc Performed By: #### L 400.0001 #### [facility] [address] [place], [address] GAP 7 Normal 5-15 [facility] Comment on above: Order Comment: MASHA CTOR TO SPECIFY Performed By: #### L 400.0001 #### [facility] [address] [place], [address] GFR/1.73 sq M.predicted among non-blacks MDRD (S/P/Bld) [Vol rate/Area] 71 mL/min/{1.73_m2} Normal >60 [facility] Comment on above: Order Comment: MASHA CTOR TO SPECIFY Result Comment: Non- GFR Calc Performed By: #### L 400.0001 #### [facility] [address] [place], [address] Glucose [Mass/Vol] 227 mg/dL High 74-106 [facility] Comment on above: Order Comment: MASHA CTOR TO SPECIFY Result Comment: Gluc ose result greater than or equal to 200 mg/dL suggests DIABETES MELLITUS per A.D.A. criteria. Performed By: #### L 400.0001 #### [facility] [address] [place], [address] Potassium [Moles/Vol] 3.7 mmol/L Normal 3.5-5.1 [facility] Comment on above: Order Comment: MASHA CTOR TO SPECIFY Performed By: #### L 400.0001 #### [facility] [address] [place], [address] Sodium [Moles/Vol] 138 mmol/L Normal 136-145 [facility] Comment on above: Order Comment: MASHA CTOR TO SPECIFY Performed By: #### L 400.0001 #### [facility] [address] [place], [address] Urea nitrogen [Mass/Vol] 13 mg/dL Normal 7-18 [facility] Comment on above: Order Comment: MASHA CTOR TO SPECIFY Performed By: #### L 400.0001 #### [facility] [address] [place], [address] CBC W/Diff, Automatedon 09-0 7-2023 Absolute Lymph 3.14 X10 3/uL Normal 0.83-4.51 [facility] Comment on above: Performed By: #### L 400.0001 #### [facility] [address] [place], [address] Absolute Neut 8.1 X10 3/uL High 2.0-7.7 [facility] Comment on above: Performed By: #### L 400.0001 #### [facility] [address] [place], [address] Basophils/100 WBC (Bld) 0.6 % Normal 0-1 [facility] Comment on above: Performed By: #### L 400.0001 #### [facility] [address] [place], [address] Eosinophils/100 WBC (Bld) 0.7 % Normal 0-5 [facility] Comment on above: Performed By: #### L 400.0001 #### [facility] [address] [place], [address] Erythrocyte distribution width (RBC) [Ratio] 13.8 % Normal 11.6-14.6 [facility] Comment on above: Performed By: #### L 400.0001 #### [facility] [address] [place], [address] Hematocrit (Bld) [Volume fraction] 46.8 % Normal 37-47 [facility] Comment on above: Performed By: #### L 400.0001 #### [facility] [address] [place], [address] Hemoglobin (Bld) [Mass/Vol] 15.5 g/dL High 12.0-15.0 [facility] Comment on above: Performed By: #### L 400.0001 #### [facility] [address] [place], [address] IG% 0.700 Normal 0.0-0.9 [facility] Comment on above: Result Comment: IG% - Immature Granulocytes (promyelocytes, myelocytes and metamyelocytes) > 1% indicates that a LEFT SHIFT is Present. Performed By: #### L 400.0001 #### [facility] [address] [place], [address] Lymphocytes/100 WBC (Bld) 25.7 % Normal 19-41 [facility] Comment on above: Performed By: #### L 400.0001 #### [facility] [address] [place], [address] MCH (RBC) [Entitic mass] 29.2 pg Normal 27.0-32.0 [facility] Comment on above: Performed By: #### L 400.0001 #### [facility] [address] [place], [address] MCHC (RBC) [Mass/Vol] 33.1 g/dL Normal 32-36 [facility] Comment on above: Performed By: #### L 400.0001 #### [facility] [address] [place], [address] MCV (RBC) [Entitic vol] 88.1 fL Normal 81-99 [facility] Comment on above: Performed By: #### L 400.0001 #### [facility] [address] [place], [address] Monocytes/100 WBC (Bld) 6.4 % Normal 0-10 [facility] Comment on above: Performed By: #### L 400.0001 #### [facility] [address] [place], [address] Neutrophils/100 WBC (Bld) 65.9 % Normal 47-70 [facility] Comment on above: Performed By: #### L 400.0001 #### [facility] [address] [place], [address] Nucleated RBC (Bld) [#/Vol] 0 10*3/uL Normal 0-5 [facility] Comment on above: Performed By: #### L 400.0001 #### [facility] [address] [place], [address] Platelet mean volume (Bld) [Entitic vol] 10.7 fL Normal 6.2-12.0 [facility] Comment on above: Performed By: #### L 400.0001 #### [facility] [address] [place], [address] Platelets (Bld) [#/Vol] 218 10*3/uL Normal 150-450 [facility] Comment on above: Performed By: #### L 400.0001 #### [facility] [address] [place], [address] RBC (Bld) [#/Vol] 5.31 10*6/uL Normal 4.2-5.4 [facility] Comment on above: Performed By: #### L 400.0001 #### [facility] [address] [place], [address] RDW SD 44.6 fl High 35.1-43.9 [facility] Comment on above: Performed By: #### L 400.0001 #### [facility] [address] [place], [address] WBC (Bld) [#/Vol] 12.2 10*3/uL High 4.4-11.0 [facility] Comment on above: Performed By: #### L 400.0001 #### [facility] [address] [place], [address] Chest 1 View (Portable)on Chest 1 View (Portable) [facility] Imaging Services [address] [place] [address] Chest 1 View (Portable) MR#: [id number] Acct: [id number] Name: JULIANA MERIDA Rep #: [id number] : 1960 F 63 From: Rob salinas MD PCP: Bianca Palomares MD Status: REG ER Study: Chest 1 View (Portable) Date of Exam: 03/21/24 Exam# [id number] Ordering Dr: Oswaldo Lo MD [id number] INDICATION: chest pain EXAMINATION/TECHNIQUE: X-RAY - XR Chest 1 View COMPARISON: 12/19/2023. FINDINGS: The lungs are clear. Tortuous and calcified thoracic aorta. The heart is not enlarged. No pleural effusion or pneumothorax. No acute osseous abnormalities. RAD/Chest 1 View (Portable) IMPRESSION: No acute radiographic abnormalities. Electronically Signed: Rob Booker MD at 20:25 EDT , CC: Dr. Oswaldo Lo MD; Bianca Palomares MD Fabrication Engineer: Signed Normal [facility] Emergency Department Summary on 03-21-2024 Emergency Department Summary [facility] Medical Records Department [address] [place] [address] Emergency Department Summary 03/21/24 MR#: [id number] Acct: [id number] Name: JULIANA MERIDA Rep #: [id number] : 1960 63 From: Oswaldo Lo MD [...] few days. No exacerbating or alleviating factors. [facility] Medical History [place] Hx of fracture of hip Wears glasses [...] bisacodyl 10 mg rectal suppository 10 mg NM .Q24 PRN PRN constipation 12/18/22 Unknown History [...] 12/18/22 Un (more content not included)... Normal [facility] L501.4020on 03-21-2024 TROPONIN-I HS 7 pg/mL Normal 3.0-54.0 [facility] Comment on above: Result Comment: Jerrod sher Note: New Test Units and Gender Specific Reference Ranges. For more information see Policy Stat Procedure [place] High Sensitivity Troponin (TNIH) and attachments. Performed By: #### L 400.0001 #### [facility] [address] [place], [place], [address] L501.5425on 03-21-2024 TROPONIN-I HS 6 pg/mL Normal 3.0-54.0 [facility] Comment on above: Order Comment: COLLE CTOR TO SPECIFY Result Comment: Plea se Note: New Test Units and Gender Specific Reference Ranges. For more information see Policy Stat Procedure [place] High Sensitivity Troponin (TNIH) and attachments. Performed By: #### L 400.0001 #### [facility] [address] [place], [address] Urinalysis, Completeon 03-21 BACTERIA 1+ /hpf Normal None Seen [facility] Comment on above: Order Comment: LEROY TER SPECIMEN Performed By: #### L 400.0001 ####[facility] [address] [place], [address] EPI,SQUAMOUS 5-10 SEEN Normal 5-10 [facility] Comment on above: Order Comment: LEROY TER SPECIMEN Performed By: #### L 400.0001 ####[facility] [address] [place], [address] WBC 5-10 SEEN Normal 0-5 [facility] Comment on above: Order Comment: LEROY TER SPECIMEN Performed By: #### L 400.0001 ####[facility] [address] [place], [address] BILIRUBIN URINE Negative Normal Negative [facility] Comment on above: Order Comment: LEROY TER SPECIMEN Performed By: #### L 400.0001 ####[facility] [address] [place], [address] Clarity (U) Clear Normal Clear [facility] Comment on above: Order Comment: LEROY TER SPECIMEN Performed By: #### L 400.0001 ####[facility] [address] [place], [address] Color (U) Yellow Normal Yellow [facility] Comment on above: Order Comment: LEROY TER SPECIMEN Performed By: #### L 400.0001 ####[facility] [address] [place], [address] GLUCOSE, UR 1000 mg/dl Abnormal Normal [facility] Comment on above: Order Comment: LEROY TER SPECIMEN Performed By: #### L 400.0001 ####[facility] [address] [place], [address] KETONE UR Negative Normal Negative [facility] Comment on above: Order Comment: LEROY TER SPECIMEN Performed By: #### L 400.0001 ####[facility] [address] [place], [address] LEUK ESTERASE 25 /ul Abnormal Negative [facility] Comment on above: Order Comment: LEROY TER SPECIMEN Performed By: #### L 400.0001 ####[facility] [address] [place], [address] Nitrite Ql (U) Negative Normal Negative [facility] Comment on above: Order Comment: LEROY TER SPECIMEN Performed By: #### L 400.0001 ####[facility] [address] [place], [address] OCCULT BLOOD-UR Negative Normal Negative [facility] Comment on above: Order Comment: LEROY TER SPECIMEN Performed By: #### L 400.0001 ####[facility] [address] [place], [address] pH UR 7.0 Normal 5.0 - 8.0 [facility] Comment on above: Order Comment: LEROY TER SPECIMEN Performed By: #### L 400.0001 ####[facility] [address] [place], [address] PROT DIPSTX 15 mg/dl Abnormal Negative [facility] Comment on above: Order Comment: LEROY TER SPECIMEN Performed By: #### L 400.0001 ####[facility] [address] [place], [address] SP.GR. DIPSTX 1.010 Normal 1.002-1.03 0 [facility] Comment on above: Order Comment: LEROY TER SPECIMEN Performed By: #### L 400.0001 ####[facility] [address] [place], [address] UROBILI Normal Normal Normal [facility] Comment on above: Order Comment: LEROY TER SPECIMEN Performed By: #### L 400.0001 ####[facility] [address] [place], [address] Mucus Ql (Urine sed) 0 SEEN Normal [facility] Comment on above: Order Comment: LEROY TER SPECIMEN Performed By: #### L 400.0001 ####[facility] [address] [place], [address] RBC 0 SEEN Normal 0-5 [facility] Comment on above: Order Comment: LEROY TER SPECIMEN Performed By: #### L 400.0001 ####[facility] [address] [place], [address] Bedside Glucoseon 02-07-2024 FINGERSTICK GLU 251 mg/dL High 74-106 [facility] Comment on above: Result Comment: PAO MARS OF PATIENT CARE PER NURSING PROTOCOL Performed By: #### L 400.0001 #### [facility] [address] [place], [address] MR/POSTOP.ANEon 02-07-2024 MR/POSTOP.[facility] Medical Records Department [address] [place] [address] Anesthesia Postop Eval I 02/07/24 1026 MR#: [id number] Acct: [id number] Name: JULIANA MERIDA YANELI Rep #: [id number] : 1960 63 From: Eric Serna PCP: Bianca Palomares MD Status:REG [facility] Y Race: C Location: [place] [address] Anesthesia: Postop Eval I Current Vital Signs [...] Serna Cosigner Signature: Date CC: Signed Normal [facility] MR/[id number] 02-07-2024 MR/POSTOPAN2 [facility] Medical Records Department [address] [place] [address] Anesthesia Postop Eval II 02/07/24 1300 MR#: [id number] Acct: [id number] Name: JULIANA MERIDA Rep #: [id number] : 1960 63 From: Eric Monte MD PCP: Bianca Palomares MD Status:[facility] Y Race: C Location: [facility] Anesthesia Postop Eval I Sum Postop Eval Completion status Anesthesia document: Postop Eval 1 completed: Yes Anesthesia Postop Eval I Summary Anesthesia Postop Eval I Summary: Anesthesia Postop Eval I: Assessment Summary Airway patent Yes 02/07/24 10:27 GENERAL OPERATOR.MDOT Spontaneous unlabored Yes 02/07/24 10:27 GENERAL OPERATOR.MDOT respirations Mental status Awake,Calm 02/07/24 10:27 GENERAL OPERATOR.MDOT nausea No 02/07/24 10:27 GENERAL OPERATOR.MDOT Vomiting No 02/07/24 10:27 GENERAL OPERATOR.MDOT Anesthesia Postop Eval I: Fluid Summary Crystalloid volume administer 800 02/07/24 10:27 GENERAL OPERATOR.MDOT (ml) Colloids volume administered ( ml) Blood Product volume administered (ml) Total IV fluid infused 800 02/07/24 10:27 GENERAL OPERATOR.MDOT Anesthesia Postop Eval I: Summary Notes Anesthesia Complication No 02/07/24 10:27 GENERAL OPERATOR.MDOT Anesthesia Complication Comment: Post-operative progress note Anesthesia: Postop Eval II Evaluation Mental status: Awake and Calm Pain Level: 1 nausea: No Vomiting: No Complications Anesthesia Complication: No 02/07/24 1300 Date Eric Monte MD Cosigner Signature: Date CC: Signed Normal [facility] Absolute lymphocyte countOrd ered By: Dino Pena on 11-24-2023 Lymphocytes Auto (Unsp spec) [#/Vol] 2.37 10*3/uL 0.83-4.51 [facility] Automated lymphocyte count a s percentage of total leukocytesOrdered By: Dino Pena on 11-24-2023 Lymphocytes/100 WBC Auto (Unsp spec) 20.5 % 19-41 [facility] Basophil percentageOrdered B y: Dino Pena on 11-24-2023 Basophil percentage 0 SEEN /hpf 0-5 [facility] Basophils/100 WBC (Bld) 0.3 % 0-1 [facility] Chloride [Moles/Vol] 104 mmol/L 98-107 [facility] Eosinophils/100 WBC (Bld) 0.6 % 0-5 [facility] Glucose [Mass/Vol] 141 mg/dL 74-106 [facility] Comment on above: Fasting Glucose resu lt greater than or equal to 126 mg/dL suggests DIABETES MELLITUS per A.D.A. criteria. Hemoglobin (Bld) [Mass/Vol] 14.4 g/dL 12.0-15.0 [facility] Monocytes/100 WBC (Bld) 8.4 % 0-10 [facility] Neutrophils (Bld) [#/Vol] 8.0 10*3/uL 2.0-7.7 [facility] Neutrophils/100 WBC (Bld) 69.2 % 47-70 [facility] Potassium [Moles/Vol] 3.9 mmol/L 3.5-5.1 [facility] Sodium [Moles/Vol] 142 mmol/L 136-145 [facility] WBC (Bld) [#/Vol] 11.6 10*3/uL 4.4-11.0 [facility] Bilirubin Test strip Ql (U)O rdered By: Dino Pena on 11-24-2023 Bilirubin Ql (U) Negative Negative [facility] Determination of erythrocyte mean corpuscular volume (MCV)Ordered By: Dino Pena on 11-24-2023 MCV (RBC) [Entitic vol] 89.4 fL 81-99 [facility] Erythrocyte distribution wid th ratioOrdered By: Dino Pena on 11-24-2023 Erythrocyte distribution width (RBC) [Ratio] 15.5 % 11.6-14.6 [facility] Erythrocyte distribution wid th standard deviationOrdered By: Dino Pena on 11-24-2023 Erythrocyte distribution width (RBC) [Entitic vol] 50.6 fL 35.1-43.9 [facility] Hematocrit Auto (Bld) [Volum e fraction]Ordered By: Dino Pena on 11-24-2023 Hematocrit (Bld) [Volume fraction] 43.8 % 37-47 [facility] Immature granulocytes/100 WB C Auto (Bld)Ordered By: Dino Pena on 11-24-2023 Immature granulocytes/100 WBC (Bld) 1.000 % 0.0-0.9 [facility] Comment on above: IG% - Immature Granu locytes (promyelocytes, myelocytes and metamyelocytes) > 1% indicates that a LEFT SHIFT is Present. Ketones Test strip Ql (U)Ord ered By: Dino Pena on 11-24-2023 Ketones Ql (U) Negative Negative [facility] - Chemistry and C hemistry - challengeOrdered By: Dino Pena on 11-24-2023 CO2 [Moles/Vol] 33.0 mmol/L 21.0-32.0 [facility] Urea nitrogen/Creatinine [Mass ratio] 17.9 mg/mg 10-20 [facility] - Hematology and Cell countsOrdered By: Dino Pena on 11-24-2023 MCH (RBC) [Entitic mass] 29.4 pg 27.0-32.0 [facility] MCHC (RBC) [Mass/Vol] 32.9 g/dL 32-36 [facility] Nucleated RBC/100 WBC (Bld) [Ratio] 0 % 0-5 [facility] Platelet mean volume (Bld) [Entitic vol] 9.9 fL 6.2-12.0 [facility] Platelets (Bld) [#/Vol] 223 10*3/uL 150-450 [facility] Mucus LM Ql (Urine sed)Order ed By: Dino Pena on 11-24-2023 Mucus Ql (Urine sed) 0 SEEN /hpf [facility] Nitrite Test strip Ql (U)Ord ered By: Dino Pena on 11-24-2023 Nitrite Ql (U) Negative Negative [facility] No Panel InformationOrdered By: Dino Pena on 11-24-2023 Urine RBC 0 SEEN /hpf 0-5 [facility] Estimated Creatinine Clearance Calc 77.96 ml/min [facility] Estimated GFR (MDRD) Amer 89 mL/min >60 [facility] Comment on above: GFR Calc Estimated GFR (MDRD) Non-Af Amer 73 mL/min >60 [facility] Comment on above: Non- GFR Calc Troponin I High Sensitivity 5 pg/mL 3.0-54.0 [facility] Comment on above: Please Note: New Ines t Units and Gender Specific Reference Ranges. For more information see Policy Stat Procedure [place] High Sensitivity Troponin (TNIH) and attachments. Protein Test strip Ql (U)Ord ered By: Dino Pena on 11-24-2023 Protein Ql (U) Negative Negative [facility] RBC Auto (Bld) [#/Vol]Ordere d By: Dino Pena on 11-24-2023 RBC (Bld) [#/Vol] 4.90 10*6/uL 4.2-5.4 [facility] Serum or plasma calcium fabi urement (mass/volume)Ordered By: Dino Pena on 11-24-2023 Calcium [Mass/Vol] 9.0 mg/dL 8.5-10.1 [facility] Serum or plasma creatinine m easurement (mass/volume)Ordered By: Dino Pena on 11-24-2023 Creatinine [Mass/Vol] 0.84 mg/dL 0.55-1.02 [facility] Comment on above: The validity of the calculated GFR & GFRAA in patients over 70 years has not been determined. Clinical correlation is essential. Serum or plasma urea nitroge n measurement (mass/volume)Ordered By: Dino Pena on 11-24-2023 Urea nitrogen [Mass/Vol] 15 mg/dL 7-18 [facility] Squamous epithelial cells de tection in urine sediment by light microscopyOrdered By: Dino Pena on 11-24-2023 Epithelial cells.squamous LM Ql (Urine sed) 0-5 SEEN /hpf 5-10 [facility] Thin prep Papanicolaou smear with manual screeningOrdered By: Dino Pena on 11-24-2023 Thin prep Papanicolaou smear with manual screening 5 5-15 [facility] Urine blood detectionOrdered By: Dino Pena on 11-24-2023 RBC Ql (U) Negative Negative [facility] Urine clarityOrdered By: Migdalia Pena on 11-24-2023 Clarity (U) Clear Clear [facility] Urine color determinationOrd ered By: Dino Pena on 11-24-2023 Color (U) Yellow Yellow [facility] Urine glucose detectionOrder ed By: Dino Pena on 11-24-2023 Glucose Ql (U) Normal mg/dl Normal [facility] Urine leukocyte esterase det ection by dipstickOrdered By: Dino Pena on 11-24-2023 Leukocyte esterase Test strip Ql (U) Negative Negative [facility] Urine pHOrdered By: Dino Pena on 11-24-2023 pH (U) 7.0 [pH] 5.0 - 8.0 [facility] Urine sediment bacteria coun t by microscopy (number/high power field)Ordered By: Dino Pena on 11-24-2023 Bacteria LM.HPF (Urine sed) [#/Area] 0 /[HPF] None Seen [facility] Urine specific gravity measu rementOrdered By: Dino Pena on 11-24-2023 Specific gravity (U) [Rel density] 1.010 1.002-1.03 0 [facility] Urine urobilinogen measureme ntOrdered By: Dino Pena on 11-24-2023 Urobilinogen Ql (U) Normal mg/dl Normal [facility] CT ABDOMEN/PELVIS W/O CONTRA STon 10-05-2023 CT [...] 10/05/2023 8:25:51 PM Ordering Provider: [facility] Absolute lymphocyte countOrd ered By: Chilango Laughlin on 09-26-2023 Lymphocytes Auto (Unsp spec) [#/Vol] 2.05 10*3/uL 0.83-4.51 [facility] Anaerobic cultureOrdered By: Chilango Laughlin on 09-26-2023 Bacteria identified Anaer cx Nom (Unsp spec) No anaerobic bacteria isolated. [facility] Automated lymphocyte count a s percentage of total leukocytesOrdered By: Chilango Laughlin on 09-26-2023 Lymphocytes/100 WBC Auto (Unsp spec) 20.9 % 19-41 [facility] Bacteria identified Cx Nom ( Wound)Ordered By: Chilango Laughlin on 09-26-2023 Wound Culture Meth. resistant Stap h. aureus [facility] Basophil percentageOrdered B y: Chilango Laughlin on 09-26-2023 Basophils/100 WBC (Bld) 0.4 % 0-1 [facility] Bilirubin [Mass/Vol] 0.40 mg/dL 0.20-1.00 [facility] Comment on above: For patients on eltr ombopag therapy, use of Dimension [place] TBIL is not recommended. Chloride [Moles/Vol] 106 mmol/L 98-107 [facility] Eosinophils/100 WBC (Bld) 1.3 % 0-5 [facility] Glucose [Mass/Vol] 210 mg/dL 74-106 [facility] Comment on above: Glucose result great er than or equal to 200 mg/dLsuggests DIABETES MELLITUS per A.D.A. criteria. Hemoglobin (Bld) [Mass/Vol] 14.5 g/dL 12.0-15.0 [facility] Monocytes/100 WBC (Bld) 7.7 % 0-10 [facility] Neutrophils (Bld) [#/Vol] 6.8 10*3/uL 2.0-7.7 [facility] Neutrophils/100 WBC (Bld) 69.1 % 47-70 [facility] Potassium [Moles/Vol] 4.5 mmol/L 3.5-5.1 [facility] Comment on above: Moderate Hemolysis, Result may be falsely increased. Protein [Mass/Vol] 6.9 g/dL 6.4-8.2 [facility] Sodium [Moles/Vol] 139 mmol/L 136-145 [facility] WBC (Bld) [#/Vol] 9.8 10*3/uL 4.4-11.0 [facility] Determination of erythrocyte mean corpuscular volume (MCV)Ordered By: Chilango Laughlin on 09-26-2023 MCV (RBC) [Entitic vol] 87.5 fL 81-99 [facility] Erythrocyte distribution wid th ratioOrdered By: Chilango Laughlin on 09-26-2023 Erythrocyte distribution width (RBC) [Ratio] 13.4 % 11.6-14.6 [facility] Erythrocyte distribution wid th standard deviationOrdered By: Chilango Laughlin on 09-26-2023 Erythrocyte distribution width (RBC) [Entitic vol] 42.7 fL 35.1-43.9 [facility] Erythrocyte sedimentation ra teOrdered By: Chilango Laughlin on 09-26-2023 ESR (Bld) [Velocity] 15 mm/h 0-30 [facility] Gram stain for investigation of transfusion reactionOrdered By: Chilango Laughlin on 09-26-2023 Microscopic observation Gram stain Nom (Unsp spec) [facility] Hematocrit Auto (Bld) [Volum e fraction]Ordered By: Chilango Laughlin on 09-26-2023 Hematocrit (Bld) [Volume fraction] 44.9 % 37-47 [facility] Immature granulocytes/100 WB C Auto (Bld)Or[facility]: [facility] on 09-26-2023 Immature granulocytes/100 WBC (Bld) 0.600 % 0.0-0.9 [facility] Comment on above: IG% - Immature Granu locytes (promyelocytes, myelocytes and metamyelocytes) > 1% indicates that a LEFT SHIFT is Present. Laboratory - Chemistry and C hemistry - challengeOrdered By: Chilango Laughlin on 09-26-2023 Albumin/Globulin [Mass ratio] 1.0 {ratio} 0.9-2.4 [facility] ALP [Catalytic activity/Vol] 60 U/L 45-117 [facility] ALT [Catalytic activity/Vol] 62 U/L 13-56 [facility] CO2 [Moles/Vol] 28.0 mmol/L 21.0-32.0 [facility] Globulin (S) [Mass/Vol] 3.5 g/dL 2.2-4.2 [facility] Urea nitrogen/Creatinine [Mass ratio] 17.4 mg/mg 10-20 [facility] Laboratory - Hematology and Cell countsOrdered By: Chilango Laughlin on 09-26-2023 MCH (RBC) [Entitic mass] 28.3 pg 27.0-32.0 [facility] MCHC (RBC) [Mass/Vol] 32.3 g/dL 32-36 [facility] Nucleated RBC/100 WBC (Bld) [Ratio] 0 % 0-5 [facility] Platelet mean volume (Bld) [Entitic vol] 10.6 fL 6.2-12.0 [facility] Platelets (Bld) [#/Vol] 222 10*3/uL 150-450 [facility] No Panel InformationOrdered By: Chilango Laughlin on 09-26-2023 C-Reactive Protein Extended Range 5.51 mg/L 0.0-3.0 [facility] Comment on above: C-Reactive Protein ( CRP) provides useful information for thediagnosis, therapy and monitoring of inflammatory processesand associated diseases. For the evaluation of Relative Riskfor Cardiovascular Disease, a High Sensitivity CRP (HSCRP)should be ordered. Estimated GFR (MDRD) Amer 93 mL/min >60 [facility] Comment on above: GFR Calc Estimated GFR (MDRD) Non-Af Amer 77 mL/min >60 [facility] Comment on above: Non- GFR Calc RBC Auto (Bld) [#/Vol]Ordere d By: Chilango Laughlin on 09-26-2023 RBC (Bld) [#/Vol] 5.13 10*6/uL 4.2-5.4 [facility] Serum or plasma calcium fabi urement (mass/volume)Ordered By: Chilango Laughlin on 09-26-2023 Calcium [Mass/Vol] 9.4 mg/dL 8.5-10.1 [facility] Serum or plasma creatinine m easurement (mass/volume)Ordered By: Chilango Laughlin on 09-26-2023 Creatinine [Mass/Vol] 0.80 mg/dL 0.55-1.02 [facility] Comment on above: The validity of the calculated GFR & GFRAA in patients over 70 years has not been determined. Clinical correlation is essential. Serum or plasma urea nitroge n measurement (mass/volume)Ordered By: Chilango Laughlin on 09-26-2023 Urea nitrogen [Mass/Vol] 14 mg/dL 7-18 [facility] Thin prep Papanicolaou smear with manual screeningOrdered By: Chilango Laughlin on 09-26-2023 Thin prep Papanicolaou smear with manual screening 3.4 g/dL 3.2-5.0 [facility] Thin prep Papanicolaou smear with manual screening 42 U/L 15-37 [facility] Comment on above: Moderate Hemolysis, Result may be falsely increased. Thin prep Papanicolaou smear with manual screening 5 5-15 [facility] Anaerobic cultureOrdered By: Chilango Laughlin on 08-22-2023 Bacteria identified Anaer cx Nom (Unsp spec) No anaerobic bacteria isolated. [facility] Bacteria identified Anaer cx Nom (Unsp spec) No anaerobic bacteria isolated. [facility] Bacteria identified Cx Nom ( Wound)Ordered By: Chilango Laughlin on 08-22-2023 Wound Culture Meth. resistant Stap h. aureus [facility] Wound Culture Meth. resistant Stap h. aureus [facility] Gram stain for investigation of transfusion reactionOrdered By: Chilango Laughlin on 08-22-2023 Microscopic observation Gram stain Nom (Unsp spec) [facility] Microscopic observation Gram stain Nom (Unsp spec) [facility] Anaerobic cultureOrdered By: Chilango Laughlin on 07-18-2023 Bacteria identified Anaer cx Nom (Unsp spec) No anaerobic bacteria isolated. [facility] Bacteria identified Anaer cx Nom (Unsp spec) No anaerobic bacteria isolated. [facility] Bacteria identified Cx Nom ( Wound)Ordered By: Chilango Laughlin on 07-18-2023 Wound Culture Meth. resistant Stap h. aureus [facility] Wound Culture Meth. resistant Stap h. aureus [facility] Gram stain for investigation of transfusion reactionOrdered By: Chilango Laughlin on 07-18-2023 Microscopic observation Gram stain Nom (Unsp spec) [facility] Microscopic observation Gram stain Nom (Unsp spec) [facility] Anaerobic cultureOrdered By: Dr. Laughlin on 11-25-2022 Bacteria identified Anaer cx Nom (Unsp spec) No anaerobic bacteria isolated. [facility] Bacteria identified Cx Nom ( Wound)Ordered By: Dr. Laughlin on 11-24-2022 Wound Culture Klebsiella pneumonia e sp pneum [facility] Wound Culture Proteus mirabilis [facility] Gram stain for investigation of transfusion reactionOrdered By: Dr. Laughlin on 11-23-2022 Microscopic observation Gram stain Nom (Unsp spec) [facility] Anaerobic cultureOrdered By: Chilango Laughlin on 11-22-2022 Bacteria identified Anaer cx Nom (Unsp spec) No anaerobic bacteria isolated. [facility] Bacteria identified Cx Nom ( Wound)Ordered By: Chilango Laughlin on 11-22-2022 Wound Culture Klebsiella pneumonia e sp pneum [facility] Wound Culture Proteus mirabilis [facility] Gram stain for investigation of transfusion reactionOrdered By: Chilango Laughlin on 11-22-2022 Microscopic observation Gram stain Nom (Unsp spec) [facility] XR ANKLE AND FOOT 6 VIEWS [...] 10/17/2022 5:04:00 AM Ordering Provider: [facility] KNEE THREE VIEWS RIGHTon 10-17-2022 XR [...] 10/17/2022 5:02:30 AM Ordering Provider: MAKENNA [facility] LABORATORYOrdered By: Cici Mcnally on 04-28-2022 Basophil, [...] 247 mg/dL Abnormal 74 - 99 mg/dL [facility] LABORATORYOrdered By: Savanna Allen on 12-01-2021 [...] Routine cultures are held for 5 days. [facility] LABORATORYOrdered By: Jeremy Waters on 11-30-2021 Adenovirus [...] [Mass/Vol] 3.6 g/dL 3.4 - 5.0 g/dL [facility] ALP [Catalytic activity/Vol] 80 U/L 46 - 116 U/L [facility] ALT With P-5'-P [Catalytic activity/Vol] 51 U/L 12 - 78 U/L [facility] Anion gap [Moles/Vol] 9 mmol/L 8 - 16 mmol/L [facility] AST With P-5'-P [Catalytic activity/Vol] 31 U/L 15 - 46 U/L [facility] Bilirubin [Mass/Vol] 0.2 mg/dL 0.2 - 1 .0 mg/dL [facility] Calcium [Mass/Vol] 8.8 mg/dL 8.5 - 10. 1 mg/dL [facility] Chloride [Moles/Vol] 102 mmol/L 98 - 10 7 mmol/L [facility] CO2 [Moles/Vol] 25 mmol/L 21 - 32 mmol/L [facility] Creatinine [Mass/Vol] 0.67 mg/dL 0.51 - 0.95 mg/dL [facility] Estimated Glomerular Filtration Rate 100 mL/min/1.73m >=60 mL/min/1.7 3m [facility] Glucose [Mass/Vol] 264 mg/dL High 70 - 99 mg/dL [facility] Potassium [Moles/Vol] 4.2 mmol/L 3.5 - 5.1 mmol/L [facility] Protein [Mass/Vol] 7.0 g/dL 6.4 - 8.2 g/dL [facility] Sodium [Moles/Vol] 136 mmol/L 136 - 145 mmol/L [facility] Urea nitrogen [Mass/Vol] 10 mg/dL 7 - 18 mg/dL [facility] BD DXA - AXIAL SKELETONon BD DXA - AXIAL SKELETON * * *Final Report* * * DATE OF EXAM: Aug 07 2021 12:03PM [facility] 0804 - BD DXA - [...] Osteoporosis Less than or equal to -2.5 Fabrication Engineer: AKIL Transcribe Date/Time: Aug 07 2021 12:13P Dictated by : RINA YOST MD This examination was interpreted and the report reviewed and electronically signed by: RINA YOST MD on Aug 07 2021 12:14PM EST [id number] Normal [facility] Office Visiton 01-18-2017 Documentation of current medications (procedure) Done Invalid Interpretation Code [facility] Work Phone: [phone] Protein mass conc Done [facility] Work Phone: [phone] Tobacco smoking status NHIS Never smoker [facility] Work Phone: [phone] [facility] Never smoker Invalid Interpretation Code [facility] Work Phone: [phone] Office Visiton 12-12-2016 Documentation of current medications (procedure) Done Invalid Interpretation Code [facility] Work Phone: [phone] Tobacco use CP Never smoker Invalid Interpretation Code [facility] Work Phone: [phone] Lab Report: Bedside Glucoseo n 11-27-2016 Glucose 123 mg/dL High 70-110 [facility] Work Phone: [phone] Glucose mass conc 123 mg/dL High 70-110 [facility] Work Phone: [phone] Lab Report: Hemoglobin A1con 11-22-2016 HbA1c 7.4 % High 4.2-6.3 [facility] Work Phone: [phone] Lab Report: Partial Thrombop last Timeon 11-22-2016 aPTT 30.9 s Invalid Interpretation Code 24.1-36.2 [facility] Work Phone: [phone] Lab Report: Prothrombin Time w/INRon 11-22-2016 Coagulation tissue factor induced in platelet poor plasma 12.6 s Invalid Interpretation Code 11.7-14.9 [facility] Work Phone: [phone] INR Coag RelTime (PPP) 1.0 {INR} [facility] Work Phone: [phone] INR in blood by coagulation 1.0 {INR} Invalid Interpretation Code [facility] Work Phone: [phone] Office Visiton 11-14-2016 Documentation of current medications (procedure) Done Invalid Interpretation Code [facility] Work Phone: [phone] Tobacco use [facility] Never smoker Invalid Interpretation Code [facility] Work Phone: [phone] Office Vis[facility] 08-27-2016 Documentation of current medications (procedure) Done Invalid Interpretation Code [facility] Work Phone: [phone] Tobacco use [facility] Never smoker Invalid Interpretation Code [facility] Work Phone: [phone] Vital Signs Date Time Vital Sign Value Performing Clinician Facility 01-25-2025 06:00-0400 Diastolic blood pressure 87 mm[Hg] Dr. Mariah Atkinson MD Work Phone: [facility] 01-25-2025 06:00-0400 Heart rate 90 /min Dr. Mariah Atkinson MD Work Phone: [facility] 01-25-2025 06:00-0400 Respiratory rate 18 /min Dr. Mariah Atkinson MD Work Phone: [facility] 01-25-2025 06:00-0400 SaO2% (BldA) [Mass fraction] 97 % Dr. Mariah Atkinson MD Work Phone: [facility] 01-25-2025 06:00-0400 Systolic blood pressure 178 mm[Hg] Dr. Mariah Atkinson MD Work Phone: [facility] 01-25-2025 02:29-0400 Body temperature 98.1 [degF] Dr. Mariah Atkinson MD Work Phone: [facility] 01-25-2025 00:00-0400 Body mass index (BMI) [Ratio] 35.5 kg/m2 Dr. Mariah Atkinson MD Work Phone: [facility] 01-25-2025 00:00-0400 Body weight 90.[address] Mariah Atkinson MD Work Phone: [facility] 01-24-2025 22:34-0400 Body height 160.[address] Mariah Atkinson MD Work Phone: [facility] 01-21-2025 09:25-0400 Body temperature 97.1 [degF] Dr. Mariah Atkinson MD Work Phone: [facility] 01-21-2025 09:25-0400 Diastolic blood pressure 61 mm[Hg] Dr. Mariah Atkinson MD Work Phone: [facility] 01-21-2025 09:25-0400 Heart rate 85 /min Dr. Mariah Atkinson MD Work Phone: [facility] 01-21-2025 09:25-0400 Respiratory rate 16 /min Dr. Mariah Atkinson MD Work Phone: [facility] 01-21-2025 09:25-0400 SaO2% (BldA) [Mass fraction] 97 % Dr. Mariah Atkinson MD Work Phone: [facility] 01-21-2025 09:25-0400 Systolic blood pressure 129 mm[Hg] Dr. Mariah Atkinson MD Work Phone: [facility] 01-21-2025 07:45-0400 Body height 161.[address] Mariah Atkinson MD Work Phone: [facility] 01-21-2025 07:45-0400 Body mass index (BMI) [Ratio] 34.9 kg/m2 Dr. Mariah Atkinson MD Work Phone: [facility] 01-21-2025 07:45-0400 Body weight 90.[address] Mariah Atkinson MD Work Phone: [facility] 09-27-2024 04:39-0400 Body temperature 98 [degF] Dr. Dino Pena MD Work Phone: 6(129)874-654278 [place] [address] 09-27-2024 04:39-0400 Diastolic blood pressure 82 mm[Hg] Dr. Dino Pena MD Work Phone: 6(922)336-176791 [place] [address] 09-27-2024 04:39-0400 Heart rate 72 /min Dr. Dino Pena MD Work Phone: 5(271)203-535491 [place] [address] 09-27-2024 04:39-0400 Respiratory rate 18 /min Dr. Dino Pena MD Work Phone: 2(213)169-816491 [place] [address] 09-27-2024 04:39-0400 SaO2% (BldA) [Mass fraction] 93 % Dr. Dino Pena MD Work Phone: 2(552)237-908778 [place] [address] 09-27-2024 04:39-0400 Systolic blood pressure 160 mm[Hg] Dr. Dino Pena MD Work Phone: 1(741)581-803291 [place] [address] 09-27-2024 01:36-0400 Body height 160.[address] Dino Pena MD Work Phone: 8(643)816-949491 [place] [address] 09-13-2024 04:51-0500 Diastolic blood pressure 61 mm[Hg] Dr. Dino Pena MD Work Phone: 3(112)077-171978 [place] [address] 09-13-2024 04:51-0500 Heart rate 77 /min Dr. Dino Pena MD Work Phone: 7(053)091-100578 [place] [address] 09-13-2024 04:51-0500 Inhaled oxygen flow rate 2 L/min Dr. Dino Pena MD Work Phone: 5(207)886-158678 [place] [address] 09-13-2024 04:51-0500 Respiratory rate 19 /min Dr. Dino Pena MD Work Phone: 7(259)021-031378 [place] [address] 09-13-2024 04:51-0500 SaO2% (BldA) [Mass fraction] 95 % Dr. Dino Pena MD Work Phone: [facility] 09-13-2024 04:51-0500 Systolic blood pressure 111 mm[Hg] Dr. Dino Pena MD Work Phone: [facility] 09-13-2024 00:52-0500 Body temperature 98 [degF] Dr. Dino Pena MD Work Phone: [facility] 09-12-2024 22:06-0500 Body mass index (BMI) [Ratio] 38.1 kg/m2 Dr. Dino Pena MD Work Phone: [facility] 09-12-2024 22:06-0500 Body weight 97.[address] Dino Pena MD Work Phone: [facility] 07-27-2024 13:31-0500 Body temperature 97.7 [degF] [facility] 07-27-2024 13:31-0500 Diastolic blood pressure 74 mm[Hg] [facility] 07-27-2024 13:31-0500 Heart rate 70 /min [facility] 07-27-2024 13:31-0500 Respiratory rate 16 /min [facility] 07-27-2024 13:31-0500 SaO2% (BldA) [Mass fraction] 97 % [facility] 07-27-2024 13:31-0500 Systolic blood pressure 130 mm[Hg] [facility] 11-24-2023 21:43-0400 Body temperature 97.1 [degF] Dr. Chilango Laughlin Work Phone: [facility] 11-24-2023 21:43-0400 Diastolic blood pressure 73 mm[Hg] Dr. Chilango Laughlin Work Phone: [facility] 11-24-2023 21:43-0400 Heart rate 81 /min Dr. Chilango Laughlin Work Phone: [facility] 11-24-2023 21:43-0400 Respiratory rate 16 /min Dr. Chilango Laughlin Work Phone: [facility] 11-24-2023 21:43-0400 SaO2% (BldA) [Mass fraction] 95 % Dr. Chilango Laughlin Work Phone: [facility] 11-24-2023 21:43-0400 Systolic blood pressure 161 mm[Hg] Dr. Chilango Laughlin Work Phone: [facility] 11-24-2023 16:26-0400 Body height 160.[address] Chilango Laughlin Work Phone: [facility] 11-24-2023 16:26-0400 Body mass index (BMI) [Ratio] 38.7 kg/m2 Dr. Chilango Laughlin Work Phone: [facility] 11-24-2023 16:26-0400 Body weight 99.[address] Chilango Laughlin Work Phone: [facility] 11-21-2023 08:45-0400 Body temperature 96.6 [degF] Dr. Chilango Laughlin Work Phone: [facility] 11-21-2023 08:45-0400 Diastolic blood pressure 72 mm[Hg] Dr. Chilango Laughlin Work Phone: [facility] 11-21-2023 08:45-0400 Heart rate 84 /min Dr. Chilango Laughlin Work Phone: [facility] 11-21-2023 08:45-0400 Respiratory rate 15 /min Dr. Chilango Laughlin Work Phone: [facility] 11-21-2023 08:45-0400 Systolic blood pressure 146 mm[Hg] Dr. Chilango Laughlin Work Phone: [facility] 11-07-2023 09:41-0400 Body temperature 97.5 [degF] Dr. Chilango Laughlin Work Phone: [facility] 11-07-2023 09:41-0400 Diastolic blood pressure 47 mm[Hg] Dr. Chilango Laughlin Work Phone: [facility] 11-07-2023 09:41-0400 Heart rate 67 /min Dr. Chilango Laughlin Work Phone: [facility] 11-07-2023 09:41-0400 Respiratory rate 18 /min Dr. Chilango Laughlin Work Phone: [facility] 11-07-2023 09:41-0400 Systolic blood pressure 111 mm[Hg] Dr. Chilango Laughlin Work Phone: [facility] 10-10-2023 09:50-0400 Body temperature 97.4 [degF] Dr. Chilango Laughlin Work Phone: [facility] 10-10-2023 09:50-0400 Diastolic blood pressure 52 mm[Hg] Dr. Chilango Laughlin Work Phone: [facility] 10-10-2023 09:50-0400 Heart rate 80 /min Dr. Chilango Laughlin Work Phone: [facility] 10-10-2023 09:50-0400 Respiratory rate 18 /min Dr. Chilango Laughlin Work Phone: [facility] 10-10-2023 09:50-0400 Systolic blood pressure 113 mm[Hg] Dr. Chilango Laughlin Work Phone: [facility] 09-20-2023 11:29-0500 Body temperature 97.5 [degF] Chair Bath Work Phone: [facility] 09-20-2023 11:29-0500 Diastolic blood pressure 80 mm[Hg] Chair Bath Work Phone: [facility] 09-20-2023 11:29-0500 Heart rate 86 /min Chair Bath Work Phone: [facility] 09-20-2023 11:29-0500 Respiratory rate 18 /min Chair Bath Work Phone: [facility] 09-20-2023 11:29-0500 SaO2% (BldA) [Mass fraction] 96 % Chair [facility] Work Phone: [facility] 09-20-2023 11:29-0500 Systolic blood pressure 129 mm[Hg] Chair Bath Work Phone: [facility] 09-05-2023 09:29-0500 Body temperature 96.3 [degF] Dr. Chilango Laughlin Work Phone: [facility] 09-05-2023 09:29-0500 Diastolic blood pressure 65 mm[Hg] Dr. Chilango Laughlin Work Phone: [facility] 09-05-2023 09:29-0500 Heart rate 77 /min Dr. Chilango Laughlin Work Phone: [facility] 09-05-2023 09:29-0500 Respiratory rate 18 /min Dr. Chilango Laughlin Work Phone: [facility] 09-05-2023 09:29-0500 Systolic blood pressure 132 mm[Hg] Dr. Chilango Laughlin Work Phone: [facility] 08-08-2023 09:02-0500 Body temperature 96.5 [degF] Dr. Chilango Laughlin Work Phone: [facility] 08-08-2023 09:02-0500 Diastolic blood pressure 60 mm[Hg] Dr. Chilango Laughlin Work Phone: [facility] 08-08-2023 09:02-0500 Heart rate 84 /min Dr. Chilango Laughlin Work Phone: [facility] 08-08-2023 09:02-0500 Respiratory rate 20 /min Dr. Chilango Laughlin Work Phone: [facility] 08-08-2023 09:02-0500 Systolic blood pressure 112 mm[Hg] Dr. Chilango Laughlin Work Phone: [facility] 07-11-2023 08:53-0500 Body temperature 96.3 [degF] Dr. Chilango Laughlin Work Phone: [facility] 07-11-2023 08:53-0500 Diastolic blood pressure 62 mm[Hg] Dr. Chilango Laughlin Work Phone: [facility] 07-11-2023 08:53-0500 Heart rate 81 /min Dr. Chilango Laughlin Work Phone: [facility] 07-11-2023 08:53-0500 Respiratory rate 18 /min Dr. Chilango Laughlin Work Phone: [facility] 07-11-2023 08:53-0500 Systolic blood pressure 114 mm[Hg] Dr. Chilango Laughlin Work Phone: [facility] 06-13-2023 09:52-0500 Body temperature 95.6 [degF] Dr. Chilango Laughlin Work Phone: [facility] 06-13-2023 09:52-0500 Diastolic blood pressure 62 mm[Hg] Dr. Chilango Laughlin Work Phone: [facility] 06-13-2023 09:52-0500 Heart rate 97 /min Dr. Chilango Laughlin Work Phone: [facility] 06-13-2023 09:52-0500 Respiratory rate 16 /min Dr. Chilango Laughlin Work Phone: [facility] 06-13-2023 09:52-0500 Systolic blood pressure 142 mm[Hg] Dr. Chilango Laughlin Work Phone: [facility] 05-02-2023 09:16-0400 Body temperature 96.5 [degF] Dr. Bianca Palomares [facility] 05-02-2023 09:16-0400 Diastolic blood pressure 66 mm[Hg] Dr. Bianca Palomares [facility] 05-02-2023 09:16-0400 Heart rate 64 /min Dr. Bianca [facility] 05-02-2023 09:16-0400 Respiratory rate 16 /min Dr. Bianca Palomares [facility] 05-02-2023 09:16-0400 Systolic blood pressure 135 mm[Hg] Dr. Bianca Palomares [facility] 04-11-2023 09:55-0400 Body temperature 96 [degF] Dr. Bianca Palomares [facility] 04-11-2023 09:55-0400 Diastolic blood pressure 63 mm[Hg] [facility] 04-11-2023 09:55-0400 Heart rate 66 /min Dr. Bianca Pal[facility] 04-11-2023 09:55-0400 Respiratory rate 18 /min Dr. Bianca Palomares [facility] 04-11-2023 09:55-0400 Systolic blood pressure 114 mm[Hg] Dr. Bianca Palomares [facility] 03-14-2023 09:18-0400 Body temperature 96.8 [degF] Dr. Bianca Palomares [facility] 03-14-2023 09:18-0400 Diastolic blood pressure 66 mm[Hg] Dr. Bianca Palomares [facility] 03-14-2023 09:18-0400 Heart rate 73 /min Dr. Bianca Pal[facility]res [facility] 03-14-2023 09:18-0400 Respiratory rate 18 /min Dr. Bianca Palomares [facility] 03-14-2023 09:18-0400 Systolic blood pressure 122 mm[Hg] [facility] 03-13-2023 13:01-0400 Body temperature 97 [degF] Chair Bath Work Phone: [facility] 03-13-2023 13:01-0400 Diastolic blood pressure 67 mm[Hg] Chair Bath Work Phone: [facility] 03-13-2023 13:01-0400 Heart rate 72 /min Chair Bath Work Phone: [facility] 03-13-2023 13:01-0400 Respiratory rate 18 /min Chair Bath Work Phone: [facility] 03-13-2023 13:01-0400 Systolic blood pressure 117 mm[Hg] Chair Bath Work Phone: [facility] 02-07-2023 09:16-0400 Body temperature 97 [degF] Dr. Chilango Laughlin Work Phone: [facility] 02-07-2023 09:16-0400 Diastolic blood pressure 55 mm[Hg] Dr. Chilango Laughlin Work Phone: [facility] 02-07-2023 09:16-0400 Heart rate 72 /min Dr. Chilango Laughlin Work Phone: [facility] 02-07-2023 09:16-0400 Respiratory rate 18 /min Dr. Chilango Laughlin Work Phone: [facility] 02-07-2023 09:16-0400 Systolic blood pressure 106 mm[Hg] Dr. Chilango Laughlin Work Phone: [facility] 01-16-2023 12:52-0400 Body temperature 98.2 [degF] Dr. Chilango Laughlin Work Phone: [facility] 01-16-2023 12:52-0400 Diastolic blood pressure 70 mm[Hg] Dr. Chilango Laughlin Work Phone: [facility] 01-16-2023 12:52-0400 Heart rate 64 /min Dr. Chilango Laughlin Work Phone: [facility] [facility] 01-16-2023 12:52-0400 Respiratory rate 16 /min Dr. Chilango Laughlin Work Phone: [facility] 01-16-2023 12:52-0400 SaO2% (BldA) [Mass fraction] 96 % Dr. Chilango Laughlin Work Phone: [facility] 01-16-2023 12:52-0400 Systolic blood pressure 112 mm[Hg] Dr. Chilango Laughlin Work Phone: [facility] 01-11-2023 13:25-0400 Body temperature 97.8 [degF] Dr. Chilango Laughlin Work Phone: [facility] 01-11-2023 13:25-0400 Diastolic blood pressure 59 mm[Hg] Dr. Chilango Laughlin Work Phone: [facility] 01-11-2023 13:25-0400 Heart rate 72 /min Dr. Chilango Laughlin Work Phone: [facility] 01-11-2023 13:25-0400 Respiratory rate 18 /min Dr. Chilango Laughlin Work Phone: [facility] 01-11-2023 13:25-0400 Systolic blood pressure 120 mm[Hg] Dr. Chilango Laughlin Work Phone: [facility] 12-06-2022 09:36-0400 Body temperature 96.6 [degF] Dr. Chilango Laughlin Work Phone: [facility] 12-06-2022 09:36-0400 Diastolic blood pressure 72 mm[Hg] Dr. Chilango Laughlin Work Phone: [facility] 12-06-2022 09:36-0400 Heart rate 73 /min Dr. Chilango Laughlin Work Phone: [facility] 12-06-2022 09:36-0400 Respiratory rate 18 /min Dr. Chilango Laughlin Work Phone: [facility] 12-06-2022 09:36-0400 Systolic blood pressure 122 mm[Hg] Dr. Chilango Laughlin Work Phone: [facility] 10-17-2022 05:30-0400 Diastolic Blood Pressure Non-Invasive [address] MAKENNA HYATT MD [facility] 10-17-2022 05:30-0400 Heart rate 75 /min DR MAKENNA HYATT MD [facility] 10-17-2022 05:30-0400 Respiratory rate 18 /min DR MAKENNA HYATT MD [facility] 10-17-2022 05:30-0400 Systolic Blood Pressure Non-Invasive [address] MAKENNA HYATT MD [facility] 10-17-2022 04:05-0400 Body temperature 99.32 [degF] DR MAKENNA HYATT MD [facility] 10-17-2022 04:05-0400 Diastolic Blood Pressure Non-Invasive [address] MAKENNA HYATT MD [facility] 10-17-2022 04:05-0400 Heart rate 72 /min DR MAKENNA HYATT MD [facility] 10-17-2022 04:05-0400 Respiratory rate 18 /min DR MAKENNA HYATT MD [facility] 10-17-2022 04:05-0400 Systolic Blood Pressure Non-Invasive [address] MAKENNA HYATT MD [facility] 09-05-2022 09:41-0500 Diastolic blood pressure 73 mm[Hg] [facility] 09-05-2022 09:41-0500 Heart rate 78 /min [facility] 09-05-2022 09:41-0500 Systolic blood pressure 131 mm[Hg] [facility] 04-28-2022 17:23-0400 Body temperature 98.6 [degF] TAVIA NORRIS MD [facility] 04-28-2022 17:23-0400 Diastolic blood pressure 49 mm[Hg] TAVIA NORRIS MD [facility] 04-28-2022 17:23-0400 Heart rate 71 /min TAVIA NORRIS MD [facility] 04-28-2022 17:23-0400 Respiratory rate 18 /min TAVIA NORRIS MD [facility] 04-28-2022 17:23-0400 Systolic blood pressure 179 mm[Hg] TAVIA NORRIS MD [facility] 03-07-2022 09:32-0400 Body temperature 98.2 [degF] Bed Bath Work Phone: [facility] 03-07-2022 09:32-0400 Body weight 91.4 kg Bed [facility] Work Phone: [facility] 03-07-2022 09:32-0400 Diastolic blood pressure 76 mm[Hg] Bed [facility] Work Phone: [facility] 03-07-2022 09:32-0400 Heart rate 69 /min Bed [facility] Work Phone: [facility] 03-07-2022 09:32-0400 Respiratory rate 18 /min Bed [facility] Work Phone: [facility] 03-07-2022 09:32-0400 Systolic blood pressure 125 mm[Hg] Bed [facility] Work Phone: [facility] 01-31-2022 08:52-0400 Body temperature 97.7 [degF] Berenice Edmond PA-C Work Phone: [facility] 01-31-2022 08:52-0400 Diastolic blood pressure 76 mm[Hg] Berenice Barile PA-C Work Phone: [facility] 01-31-2022 08:52-0400 Heart rate 78 /min Berenice Barinubia PA-C Work Phone: [facility] 01-31-2022 08:52-0400 SaO2% (BldA) [Mass fraction] 92 % Berenice Barile PA-C Work Phone: [facility] 01-31-2022 08:52-0400 Systolic blood pressure 120 mm[Hg] Berenice Barile PA-C Work Phone: [facility] 12-13-2021 09:33-0400 Diastolic blood pressure 58 mm[Hg] Ronaldo Villarreal MD Work Phone: [facility] 12-13-2021 09:33-0400 Heart rate 86 /min Ronaldo Villarreal MD Work Phone: [facility] 12-13-2021 09:33-0400 Respiratory rate 15 /min Ronaldo Villarreal MD Work Phone: [facility] 12-13-2021 09:33-0400 SaO2% (BldA) [Mass fraction] 98 % Ronaldo Villarreal MD Work Phone: [facility] 12-13-2021 09:33-0400 Systolic blood pressure 133 mm[Hg] Ronaldo Villarreal MD Work Phone: [facility] 12-01-2021 05:50-0400 Diastolic blood pressure 57 mm[Hg] LANA ZAPIEN DO [facility] 12-01-2021 05:50-0400 Heart rate 94 /min LANA ZAPIEN DO [facility] 12-01-2021 05:50-0400 Respiratory rate 15 /min LANA ZAPIEN DO [facility] 12-01-2021 05:50-0400 Systolic blood pressure 116 mm[Hg] LANA ZAPIEN DO [facility] 12-01-2021 02:13-0400 Body temperature 100.04 [degF] LANA ZAPIEN DO [facility] 12-01-2021 02:13-0400 Diastolic blood pressure 77 mm[Hg] LANA ZAPIEN DO [facility] 12-01-2021 02:13-0400 Heart rate 104 /min LANA ZAPIEN DO [facility] 12-01-2021 02:13-0400 Respiratory rate 18 /min LANA ZAPIEN DO [facility] 12-01-2021 02:13-0400 Systolic blood pressure 151 mm[Hg] LANA ZAPIEN DO [facility] 11-30-2021 20:11-0400 Diastolic blood pressure 56 mm[Hg] LANA ZAPIEN DO [facility] 11-30-2021 20:11-0400 Heart rate 93 /min LANA ZAPIEN DO [facility] 11-30-2021 20:11-0400 Systolic blood pressure 92 mm[Hg] LANA ZAPIEN DO [facility] 11-30-2021 18:28-0400 Body temperature 100.4 [degF] LANA ZAPIEN DO [facility] 11-30-2021 18:28-0400 Body weight 87.3 kg LANA ZAPIEN DO [facility] 11-30-2021 18:28-0400 Heart rate 114 /min LANA ZAPIEN DO [facility] 11-30-2021 18:28-0400 Respiratory rate 20 /min LANA ZAPIEN DO [facility] 11-29-2021 13:15-0400 Body temperature 97.2 [degF] Chair Bath Work Phone: [facility] 11-29-2021 13:15-0400 Diastolic blood pressure 73 mm[Hg] Chair [facility] Work Phone: [facility] 11-29-2021 13:15-0400 Heart rate 82 /min Chair [facility] Work Phone: [facility] 11-29-2021 13:15-0400 Respiratory rate 20 /min Chair [facility] Work Phone: [facility] 11-29-2021 13:15-0400 Systolic blood pressure 116 mm[Hg] Chair Bath Work Phone: [facility] 03-23-2016 14:49-0400 Weight 78.47 kg Sandra Loomis [facility] Work Phone: Encounters Encounter Date Encounter Type Care Provider Facility Start: 01-24-2025 End: 01-25-2025 Emergency department patient visit Dr. Mariah Atkinson MD Work Phone: -Emergency Department Work Phone: Start: 01-21-2025 ambulatory Fer [place] Facility [place] Start: 01-21-2025 Non-patient / Non-visit Fer Ambrose ga DO -[facility] Start: 01-21-2025 End: 01-21-2025 Admission to same day surgery center Fer [place] DO -Endoscopy Work Phone: Start: 01-21-2025 End: 01-21-[address] Mariah Atkinson MD Work Phone: -Endoscopy Start: 01-20-2025 End: 01-20-2025 Telephone encounter Funmilayo Pope MD Work Phone: [facility] Rheumatology [facility] Arthritis Start: 11-20-2024 End: 11-20-2024 Patient encounter procedure Gianna Nelson [employer] [facility]CHAN[facility] Work Phone: Start: 11-20-2024 End: 11-20-2024 ambulatory Gianna Nelson Facility:[facility] Start: 10-01-2024 End: 10-01-2024 ambulatory MAULIK DIAMOND-DELMISERT Facility:A Start: 10-01-2024 End: 10-01-2024 Patient encounter procedure MAULIK DIAMOND-BACHERT DO [facility] Start: 09-27-2024 End: 09-27-2024 Emergency department patient visit Dr. Dino Pena MD Work Phone: -Emergency Department Work Phone: Start: 09-12-2024 End: 09-13-2024 Emergency department patient visit Dr. Dino Pena MD -Emergency Department Work Phone: Start: 07-27-2024 End: 07-27-2024 Patient encounter procedure Chair Bath [facility] Comment on above: Age-related osteopor osis without current pathological fracture (Primary Dx) Start: 07-27-2024 End: 07-27-2024 ambulatory Chair 3 [facility] Start: 07-16-2024 End: 07-16-2024 Telephone encounter Funmilayo Pope MD Work Phone: [facility] Arthritis & Rheumatology Comment on above: Medication Preauthor ization ([facility] Approved [id number] [facility] Medicare/Portal 07.15.24-07.15.25 2 visits) Start: 06-04-2024 End: 06-04-2024 ambulatory PHY WO ID REFERRING Facility:A Start: 06-04-2024 End: 06-04-2024 Patient encounter procedure PHY WO ID REFERRING [facility] Start: 04-08-2024 End: 04-08-2024 Emergency department patient visit Rancho Orozco Facility:[facility] Start: 03-25-2024 ambulatory Bianca Gudla Facility:[facility] Start: 03-23-2024 End: 03-23-2024 Telephone encounter Funmilayo Pope MD Work Phone: [facility] Comment on above: Appointment Start: 03-21-2024 End: 03-22-2024 Emergency department patient visit Oswaldo Lo Facility:[facility] Start: 02-20-2024 End: 03-14-2024 ambulatory Bianca Gudla Facility:[facility] Start: 02-12-2024 ambulatory Beata Liao Facility:[facility] Start: 02-07-2024 End: 02-07-2024 ambulatory Lauren Gelyi Facility:[facility] Start: 02-06-2024 End: 02-12-2024 ambulatory Bianca Gudla Facility:[facility] Start: 11-24-2023 End: 11-24-2023 Emergency department patient visit Dr. Chilango Laughlin Work Phone: [facility]-Emergency Department Work Phone: Start: 11-21-[address] Bren[facility] Work Phone: Start: 11-07-2023 End: 11-12-[address] Chilango Laughlin Work Phone: [facility] Work Phone: Start: 11-07-2023 End: 11-12-[address] [facility] Work Phone: Start: 10-11-2023 End: 10-11-[address] Chilango Laughlin Work Phone: [facility] Work Phone: Start: 10-11-2023 End: 10-11-[address] Chilango Laughlin Work Phone: [facility] Work Phone: Start: 10-10-2023 End: 10-13-[address] Chilango Laughlin Work Phone: [facility] Work Phone: Start: 10-10-2023 End: 10-13-[address] Chilango Laughlin [facility] Work Phone: Start: 10-04-2023 End: 10-05-2023 ambulatory MAULIK العلي Facility:B Start: 10-04-2023 End: 10-04-2023 Patient encounter procedure MAULIK العلي DO [facility] Start: 09-26-2023 Non-patient / Non-visit Dr. Anais Laughlin Work Phone: [facility] Work Phone: Start: 09-23-2023 End: 09-24-2023 ambulatory MAULIK العلي Facility:A Start: 09-20-2023 End: 09-20-2023 ambulatory Chair 3 [facility] Work Phone: Hematology/Oncology Comment on above: Other osteoporosis w ithout current pathological fracture (Primary Dx) Start: 09-19-2023 Non-patient / Non-visit Dr. Anais Laughlin Work Phone: [facility] Work Phone: Start: 09-10-2023 Telephone encounter Funmilayo colunga MD Work Phone: [facility] Rheumatology [facility] Arthritis Comment on above: Results Start: 09-05-2023 Non-patient / Non-visit Dr. Anais Laughlin Work Phone: [facility] Work Phone: Start: 09-05-2023 End: 09-12-[address] Chilango Laughlin Work Phone: [facility] Work Phone: Start: 09-05-2023 End: 09-12-[address] Chilango Laughlin Work Phone: [facility] Work Phone: Start: 08-29-2023 Non-patient / Non-visit Dr. Anais Laughlin Work Phone: [facility] Work Phone: Start: 08-22-2023 Non-patient / Non-visit Dr. Anais Laughlin Work Phone: [facility] Work Phone: Start: 08-15-2023 Non-patient / Non-visit Dr. Anais Laughlin Work Phone: [facility] Work Phone: Start: 08-08-2023 Non-patient / Non-visit Dr. Anais Laughlin Work Phone: [facility] Work Phone: Start: 08-08-2023 End: 08-14-[address] Chilango Laughlin Work Phone: [facility] Work Phone: Start: 08-08-2023 End: 08-14-[address] Chilango Laughlin Work Phone: [facility] Work Phone: Start: 08-01-2023 Non-patient / Non-visit Dr. Anais Laughlin Work Phone: [facility] Work Phone: Start: 07-25-2023 Non-patient / Non-visit Dr. Anais Laughlin Work Phone: [facility] Work Phone: Start: 07-11-2023 Non-patient / Non-visit Dr. Anais Laughlin Work Phone: [facility] Work Phone: Start: 07-11-2023 End: 07-14-[address] Chilango Laughlin Work Phone: [facility] Work Phone: Start: 07-11-2023 End: 07-14-[address] Chilango Laughlin Work Phone: [facility] Work Phone: Start: 06-13-2023 Non-patient / Non-visit Dr. Anais Laughlin Work Phone: [facility] Work Phone: Start: 06-13-2023 End: 06-13-[address] Chilango Laughlin Work Phone: [facility] Work Phone: Start: 06-13-2023 End: 06-13-[address] Chilango Laughlin Work Phone: [facility] Work Phone: Start: 05-30-2023 Non-patient / Non-visit Dr. Anais Laughlin Work Phone: [facility] Work Phone: Start: 05-23-2023 Non-patient / Non-visit Dr. Anais Laughlin Work Phone: [facility] Work Phone: Start: 05-16-2023 Non-patient / Non-visit Dr. Anais Laughlin Work Phone: [facility] Work Phone: Start: 05-02-2023 Non-patient / Non-visit Dr. Bianca Carey [facility] Work Phone: Start: 05-02-2023 End: 05-14-[address] [facility] Start: 05-02-2023 End: 05-14-[address] [facility] Start: 04-25-2023 Non-patient / Non-visit Dr. Bianca Carey [facility] Work Phone: Start: 04-18-2023 Non-patient / Non-visit Dr. Bianca Carey [facility] Work Phone: Start: 04-11-2023 Non-patient / Non-visit Dr. Bianca Carey [facility] Work Phone: Start: 04-11-2023 End: 04-13-[address] [facility] Start: 04-05-2023 End: 04-05-[address] Bianca Palomares [facility] Work Phone: Start: 04-04-2023 Non-patient / Non-visit Dr. Bianca Carey issa [facility] Work Phone: Start: 03-28-2023 Non-patient / Non-visit Dr. Bianca Carey [facility] Work Phone: Start: 03-26-2023 Telephone encounter Funmilayo colunga MD Work Phone: [facility] Arthritis & Rheumatology Comment on above: APPROVED ([facility] ([facility]) APPROVED [id number] 03.26.23 - 03.26.24 for 2 visits [facility] Medicare/Portal) Start: 03-21-2023 Non-patient / Non-visit Dr. Bianca sigala [facility] Work Phone: Start: 03-14-2023 Non-patient / Non-visit Dr. Bianca Carey issa [facility] Work Phone: Start: 03-14-2023 End: 03-14-[address] [facility] Work [facility]: Start: 03-13-2023 Telephone encounter Self Hem atology/Oncology Start: 03-13-2023 End: 03-13-2023 ambulatory Chair 7 [facility] Work Phone: Hematology/Oncology Comment on above: Osteoporosis, unspec ified osteoporosis type, unspecified pathological fracture presence (Primary Dx) Start: 03-07-2023 Non-patient / Non-visit Dr. Bianca Carey issa [facility] Work Phone: Start: 03-06-2023 Telephone encounter Funmilayo colunga MD Work Phone: [facility] Rheumatology and Arthritis Comment on above: Orders Start: 03-01-2023 End: 03-01-[address] Bianca Palomares [facility] Work Phone: Start: 02-21-2023 Non-patient / Non-visit Dr. Bianca Carey issa [facility] Work Phone: Start: 02-08-2023 End: 02-08-[address] Chilango Laughlin Work Phone: [facility] Work Phone: Start: 02-07-2023 Non-patient / Non-visit Dr. Anais Laughlin Work Phone: [facility] Work Phone: Start: 02-07-2023 End: 02-11-[address] Chilango Laughlin Work Phone: [facility] Work Phone: Start: 02-07-2023 End: 02-11-[address] Chilango Laughlin [facility] Work Phone: Start: 01-31-2023 Non-patient / Non-visit Dr. Anais Laughlin Work Phone: [facility] Work Phone: Start: 01-24-2023 Non-patient / Non-visit Dr. Anais Laughlin Work Phone: [facility] Work Phone: Start: 01-18-2023 End: 01-18-[address] Chilango Laughlin Work Phone: [facility] Work Phone: Start: 01-17-2023 Non-patient / Non-visit Dr. Anais Laughlin Work Phone: [facility] Work Phone: Start: 01-16-2023 End: 01-16-[address] Chilango Laughlin Work Phone: [facility] Work Phone: Start: 01-11-2023 Non-patient / Non-visit Dr. Anais Laughlin Work Phone: [facility] Start: 01-11-2023 End: 01-11-[address] Chilango Laughlin Work Phone: [facility] Work Phone: Start: 01-11-2023 End: 01-11-[address] Chilango Laughlin [facility] Work Phone: Start: 01-03-2023 Non-patient / Non-visit Dr. Anais Laughlin Work Phone: [facility] Work Phone: Start: 01-02-2023 End: 01-02-[address] Chilango Laughlin Work Phone: [facility] Work Phone: Start: 12-20-2022 Non-patient / Non-visit Dr. Anais Laughlin Work Phone: [facility] Work Phone: Start: 12-18-2022 End: 12-18-[address] Chilango Laughlin Work Phone: [facility] Work Phone: Start: 12-13-2022 Non-patient / Non-visit Dr. Anais Laughlin Work Phone: [facility] Work Phone: Start: 12-06-2022 Non-patient / Non-visit Dr. Anais Laughlin Work Phone: [facility] Start: 12-06-2022 End: 12-12-[address] Chilango Laughlin Work Phone: [facility] Work Phone: Start: 12-06-2022 End: 12-12-[address] Chilango Laughlin [facility] Start: 11-29-2022 Non-patient / Non-visit Dr. Anais Laughlin Work Phone: [facility] Start: 11-22-2022 Non-patient / Non-visit Dr. Anais Laughlin Work Phone: [facility] Start: 10-17-2022 End: 10-17-2022 Emergency department patient visit DR MAKENNA HYATT MD Facility:B Start: 10-17-2022 End: 10-17-2022 Emergency department patient visit DR MAKENNA HYATT MD [facility] Start: 09-13-2022 End: 09-13-2022 Patient encounter procedure Funmilayo Pope MD Work Phone: [facility] Rheumatology and Arthritis Comment on above: Low back pain, unspe cified back pain laterality, unspecified chronicity, unspecified whether sciatica present (Primary Dx); Pain in both lower extremities; Osteoporosis, unspecified osteoporosis type, unspecified pathological fracture presence Start: 09-05-2022 End: 09-05-[address] [facility]/On[facility] Comment on above: Other osteoporosis w ithout current pathological fracture (Primary Dx) Start: 05-04-2022 End: 05-04-2022 Patient encounter procedure CHAKA WO ID REFERRING [facility] Start: 04-28-2022 End: 04-28-2022 Emergency department patient visit TAVIA NORRIS MD [facility] Start: 03-07-2022 End: 03-07-[address] [facility] Work Phone: Hematology/Oncology Comment [...] Start: 01-08-2022 End: 01-08-2022 Patient encounter procedure [facility], [facility] Start: 12-13-2021 End: 12-13-2021 ambulatory Ronaldo Villarreal MD Work Phone: [facility] Comment on above: Procedure Start: 12-13-2021 End: 12-13-2021 Patient encounter procedure Ronaldo Villarreal MD Work Phone: [facility] Start: 11-30-2021 End: 12-01-2021 Emergency department patient visit LANA ZAPIEN DO [facility] Start: 11-29-2021 End: 11-29-2021 ambulatory Chair 6 [facility] Work Phone: Hematology/Oncology Comment on above: Other osteoporosis w ithout current pathological fracture (Primary Dx) Start: 11-21-2021 End: 11-21-2021 ambulatory Luis Pagan DO Work Phone: [facility] Start: 11-21-2021 End: 11-21-2021 Patient encounter procedure Luis Darlingty DO Work Phone: [facility] Start: 11-09-2021 Telephone encounter Ronaldo Villarreal MD [facility] Comment on above: Patient Update (NEW PHONE NUMBER) Start: 10-17-2021 Telephone encounter Funmilayo colunga MD Work Phone: [facility] Rheumatology and Arthritis Comment on above: Medication Follow-up Start: 01-01-2017 Ambulatory [facility] Procedures Date Procedure Procedure Detail [...] Phone: Start: 11-22-2022 Microbial culture, routine Dr. hCilango Laughlin Work Phone: Start: 01-08-2022 X-ray of [...] MD Work Phone: Anaerobic microbial culture Dr. Chilagno Laughlin Work Phone: Investigation of tra nsfusion reaction Dr. Chilango Laughlin Work Phone: Microbial culture, routine D marya Laughlin Work Phone: None (qualifier value) TAVIA NORRIS MD Plan of Treatment Date Care Activity Detail Author Start: 03-15-2025 Influenza vaccination Influenza Vacc ine (#1) [facility] Start: 01-25-2025 End: 01-25-2025 Patient encounter procedure [facility] Comment on above: //// prolia *prolia Start: 01-25-2025 [facility] Start: 01-21-2025 Patient discharge [facility] Start: 09-27-2024 [facility] Start: 09-13-2024 [facility] Start: 07-27-2024 End: 07-27-2024 Patient encounter procedure 07/27/2024 1[facility]30 [facility] [address] [place] [address] * prolia [facility] Comment on above: * prolia Start: 07-15-2024 Medicare Advantage Annual Wellness Visit Medicare Advantage Annual Wellness Visit [facility] Start: 03-15-2024 Covid-19 Vaccine ( season) Covid-19 Vaccine () [facility] Start: 03-15-2024 Covid-19 Vaccine ( season) Covid-19 Vaccine ( season) [facility] Start: 03-15-2024 Influenza vaccination Influenza Vacc ine (#1) [facility] Start: 11-24-2023 [facility] Start: 11-24-2023 [facility] Start: 11-24-2023 Brain natriuretic peptide measurement [facility] Start: 07-15-2023 Depression Assessment Depression Ass essment [facility] Start: 03-15-2023 Covid-19 Vaccine ( season) Covid-19 Vaccine ( season) [facility] Start: 03-15-2023 Influenza vaccination C [facility] Start: 01-31-2023 BP CONTROLLED (<130/80) BP CONTROLLE D (<130/80) [facility] Start: 07-15-2022 DEPRESSION ASSESSMENT DEPRESSION ASS ESSMENT [facility] Start: 05-31-2022 BP CONTROLLED (<130/80) BP CONTROLLE D (<130/80) [facility] Start: 05-11-2022 Adult depression screening assessment DEPRESSION SCREENING [facility] Start: 03-15-2022 Influenza vaccination C [facility] Start: 02-28-2022 Hepatitis B screening URINE ALBUMIN:CREATININE RATIO [facility] Start: 01-31-2022 End: 04-02-2022 25-hydroxyvitamin D3 [Mass/volume] in Serum or Plasma VITAMIN D 25 HYDROXY Lab Routine Vitamin D deficiency Expected: 01/31/2022, Expires: 04/02/2022 [facility] Work Phone: Comment on above: Expected: 01/31/2022 , Expires: 04/02/2022 Start: 2021 RSV Vaccine (1 - 1-d ose 60+ series) RSV Vaccine (1 - 1-dose 60+ series) [facility] Start: 2021 RSV Vaccine (1 - Ris k 60-74 years 1-dose series) RSV Vaccine (1 - Risk 60-74 years 1-dose series) [facility] Start: 01-14-2021 COVID-19 VACCINE (3 - Booster for Pfizer series) COVID-19 VACCINE (3 - Booster for Pfizer series) [facility] Start: 10-12-2020 COVID-19 VACCINE (3 - Booster for Pfizer series) COVID-19 VACCINE (3 - Booster for Pfizer series) [facility] Start: 10-12-2020 COVID-19 VACCINE (3 - Pfizer series) COVID-19 VACCINE (3 - Pfizer series) [facility] Start: 12-22-2017 Colonoscopy COLONOSCOPY [facility] Start: 12-22-2017 COLORECTAL CANCER SCREENING COLORECTAL CANCER SCREENING [facility] Start: 12-22-2017 Screening for malign ant neoplasm of colon [facility] Start: 02-28-2017 End: 02-28-2017 Appointment Appointment [facility] Work Phone: Start: 01-18-2017 End: 01-18-2017 Appointment Appointment [facility] Work Phone: Start: 12-19-2016 End: 12-19-2016 Physical Therapy General Physical Therapy General Rehab [facility], [address] [place] [address], [id number] [facility] Work Phone: Start: 12-12-2016 End: 12-12-2016 Appointment Appointment [facility] Work Phone: Start: 11-27-2016 End: 11-27-2016 Appointment Appointment [facility] Work Phone: Start: 11-14-2016 End: 11-14-2016 Appointment Appointment [facility] Work Phone: Start: 09-05-2016 End: 09-05-2016 Physical Therapy General Physical Therapy General Rehab Services, [address] [place] [address], [facility] Work Phone: Start: 08-01-2016 End: 08-01-2016 Physical Therapy General Physical Therapy [facility] Re[facility], [address] [place] [address], [id number] [facility] Work Phone: Start: 07-27-2016 End: 11-23-2016 Ct upper extremity w/o dye CT Upper Extremity [facility] Work Phone: Start: 05-16-2016 End: 06-27-2016 Physical Therapy General Physical Therapy [facility], [address] [place] [address], [facility] Work Phone: Start: 05-03-2016 End: 11-23-2016 X-ray exam of collar bone X-Ray, Clavicle [facility] Work Phone: Start: 03-23-2016 End: 11-23-2016 X-ray exam of collar bone X-Ray, Clavicle [facility] Work Phone: Start: 08-12-2015 Hepatitis B surface antibody level LDL CHOLESTEROL [facility] Start: 07-03-2015 Glaucoma screening Dilated Retinal E xam [facility] Start: 07-03-2015 Hepatitis C antibody , confirmatory test DILATED RETINAL EXAM [facility] Start: 11-16-2014 3 comp foot exam completed DIABETIC FOOT EXAM [facility] Start: 11-16-2014 Diabetic foot examination Diabetic Foot Exam [facility] Start: 11-10-2014 Hemoglobin A1c measurement HbA1C [facility] Start: 11-10-2014 Hemoglobin A1c/Hemoglobin.total in Blood HBA1C [facility] Start: 11-09-2014 Hepatitis B screening Urine Albumin:Creatinine Ratio [facility] Start: 04-21-2014 Mammography [facility] Start: 04-21-2014 Screening for malign ant neoplasm of breast Mammogram Screening [facility] Start: 10-07-2011 SHINGRIX VACCINE (1 of 2) SHINGRIX VACCINE (1 of 2) [facility] Start: 04-21-2008 PNEUMOCOCCAL (2 - PCV) PNEUMOCOCCAL (2 - PCV) [facility] Start: 04-21-2008 Pneumococcal vaccination [facility] Start: 04-21-2008 Pneumococcal Vaccine : 50+ (2 of 2 - PCV) Pneumococcal Vaccine: 50+ (2 of 2 - PCV) [facility] Start: 2006 COLOGUARD (FIT-DNA) COLOGUARD (FIT-D NA) [facility] Start: [address] COLONOGRAPHY [facility] Start: 2006 FECAL OCCULT BLOOD FECAL OCCULT BLOO D [facility] Start: 2006 Screening for malign ant neoplasm of colon [facility] Start: 2006 SIGMOIDOSCOPY SIGMOIDOSCOPY [facility] Start: 12-14-2004 Urine microalbumin profile [facility] Start: 10-07-1979 ANNUAL PCP TEAM APPIAN BPM DEVELOPER JIM DISEASE VISIT ANNUAL PCP TEAM CHRONIC DISEASE VISIT [facility] Start: 10-07-1979 Anxiety Screening Anxiety Screening [facility] Start: 10-07-1979 BP CONTROLLED (<130/80) BP CONTROLLE D (<130/80) [facility] Start: 10-07-1979 Depression Screening Depression Scre ening [facility] Start: 10-07-1979 HIV SCREENING HIV SCREENING [facility] Start: 10-07-1979 HIV screening HIV Screening [facility] End: 09-13-2023 25-hydroxyvitamin D3 [Mass/volume] in Serum or Plasma VITAMIN D 25 HYDROXY Lab Routine Osteoporosis, unspecified osteoporosis type, unspecified pathological fracture presence 2 Occurrences starting 09/13/2022 until 09/13/2023 [facility] Work Phone: Comment on above: 2 Occurrences starti ng 09/13/2022 until 09/13/2023 End: 09-13-2023 Comprehensive metabolic 2000 panel - Serum or Plasma COMP METABOLIC PANEL Lab Routine Osteoporosis, unspecified osteoporosis type, unspecified pathological fracture presence 2 Occurrences starting 09/13/2022 until 09/13/2023 [facility] Work Phone: Comment on above: 2 Occurrences starti ng 09/13/2022 until 09/13/2023 Injection single/marine electronics technician trigger point 3/> muscles TRIGGER POINT INJECTION MULTI 3+ MUSCLE GRP Procedures Routine Myofascial pain Ordered: 12/13/2021 [facility] Work Phone: Comment on above: Ordered: 12/13/2021 End: 09-13-2023 Parathyrin.intact [Mass/volume] in Serum or Plasma PTH INTACT BLD Lab Routine Osteoporosis, unspecified osteoporosis type, unspecified pathological fracture presence 2 Occurrences starting 09/13/2022 until 09/13/2023 [facility] Work Phone: Comment on above: 2 Occurrences starti ng 09/13/2022 until 09/13/2023 Patient Education [facility] Work Phone: Patient referral [facility] Work Phone: [facility] Immunizations Immunization Date Immunization Notes Care Provider Alphonse palmer 03-12-2017 influenza virus vacc ine, unspecified formulation Funmilayo Pope MD Work Phone: [facility] 04-22-2014 influenza, seasonal, injectable Funmilayo Pope MD Work Phone: [facility] 04-13-2013 influenza virus vacc ine, unspecified formulation Funmilayo Pope MD Work Phone: [facility] Work Phone: 05-13-2012 influenza virus vacc ine, unspecified formulation Funmilayo Pope MD Work Phone: [facility] 05-09-2010 influenza virus vacc ine, unspecified formulation Funmilayo Pope MD Work Phone: [facility] Work Phone: 05-15-2007 influenza virus vacc ine, unspecified formulation Funmilayo Pope MD Work Phone: [facility] Work Phone: 04-21-2007 pneumococcal polysaccharide vaccine, 23 valent Funmilayo Pope MD Work Phone: [facility] Work Phone: 05-10-2006 influenza virus vacc ine, unspecified formulation Funmilayo Pope MD Work Phone: [facility] Work Phone: 12-13-2004 tetanus and diphther ia toxoids, adsorbed, preservative free, for adult use (2 Lf of tetanus toxoid and 2 Lf of diphtheria toxoid) Funmilayo Pope MD Work Phone: [facility] Work Phone: Payers Date Payer Category Payer Unknown [id number] 2024 Self-pay [id number] 2023 Unknown [id number] 2022 Medicare (Managed Care) [facility] MEDI CARE ADVANTAGE PPO [id number] 2022 Unknown [id number] 2015 Medicaid [facility] MEDICAID [id number] 2015-Present [phone] [address] [place] [address] Medicaid [id number] 2015 Medicaid [id number] 2015 Unknown [id number] 2003 Medicare MEDICARE MEDICAR E A AND B [id number] 2003-Present [phone] [address] [address] [place] [address] Medicare [id number] 2003 Medicare [id number] 1961 Unknown [id number] [id number]. 627 1961 Unknown [id number] 2.16840.1.020622.3.579.2. 627 1961 Unknown [id number] 2.16.840.1.291159.3.579.2. 627 1961 Unknown [id number] 2.16.840.1.248985.3.579.2. 627 1961 Unknown [id number] 2.16.840.1.942340.3.579.2. 627 Medicare [id number] Unknown [id number] 2.16.840.1.198523.3.579.2. 462 Unknown [id number] 2.16.840.1.290919.3.579.2. 462 Unknown [id number] 2.16.840.1.005523.3.579.2. 462 Unknown [id number] 2.16.840.1.815768.3.579.2. 462 Unknown [id number] 2.16.840.1.946040.3.579.2. 462 Unknown [id number] 2.16840.1.052906.3.579.2. 462 Unknown [id number] 2.16.840.1.522187.3.579.2. 462 Unknown [id number] 2.16.840.1.884423.3.579.2. 462 Unknown [id number] 2.16840.1.081232.3.579.2. 462 Unknown [id number] 2.16840.1.560879.3.579.2. 462 Unknown [id number] 2.16840.1.234089.3.579.2. 462 Unknown [id number] 2.16840.1.769810.3.579.2. 462 Social History Date Type Detail Facility Start: 09-12-1994 End: 09-27-2024 Tobacco smoking status [facility] Smokes tobacco daily [facility] Start: 09-12-1994 End: 09-12-2013 History of tobacco use Cigarette Smoker [facility] Start: 02-28-2021 End: 03-13-2023 Cigarettes smoked current (pack per day) - Reported 0.5 [facility] Start: 02-28-2021 Tobacco use and exposure Smokeless tobacco non-user [facility] Start: 09-13-2021 End: 02-28-2022 Alcohol intake Current non-drinker of alcohol (finding) [facility] Start: 02-28-2021 Tobacco Comment ten cig daily currently, off and on for 19 yrs [facility] Start: 1960 Sex Assigned At Not on file [facility] Start: 11-11-2021 End: 03-07-2022 Exposure to SARS-CoV-2 (event) Not sure [facility] Start: 01-17-2019 Tobacco smoking status Heavy t obacco smoker (finding) [facility] Start: 1960 Sex Assigned At Female A [facility] Start: 07-29-2021 End: 11-24-2023 Tobacco smoking status NHIS Unknown if ever smoked [facility] Start: 03-08-2019 None [facility] Start: 12-01-2020 Alone [facility] Start: 03-08-2019 Cigarettes [facility] Start: 02-28-2022 End: 03-13-2023 Tobacco use panel [facility] Adult Depression Screening Assessment 5 [facility] Sexual Orientation [facility] Start: 01-07-2019 End: 09-27-2024 Sex Female (finding) [facility] Start: 01-21-2025 End: 01-24-2025 Tobacco smoking status NHIS Ex-smoker (finding) [facility] NEGATED: Highlighted row Not [facility] Medical Equipment Procedure Code Equipment Code Equipment Origin al Text Equipment Identifier Dates Replacement of battery of baclofen pump SYNCHROMED PAIN PUMP FDA Start: 02-07-2024 Replacement of battery of baclofen pump SYNCHROMED PAIN PUMP FDA Start: 02-07-2024 Replacement of battery of baclofen pump SYNCHROMED PAIN PUMP FDA Start: 02-07-2024 Test Blood sugar 3x daily. 250.02, insulin dep [id number] Start: 11-17-2009 Comment on above: Test Blood [...] Result Facility 04-28-2022 Functional Status Moderate assistance [facility] 12-01-2021 Functional Status [facility] 09-22-2014 Are you deaf, or do you have serious difficulty hearing No 09/22/2014 9:26 AM EDT Zahra Thurman LPN No [facility] 09-22-2014 Are you blind, or do you have serious difficulty seeing, even when wearing glasses No 09/22/2014 9:26 AM Zahra Espinosa LPN No [facility] 09-22-2014 Do you have serious difficulty walking or climbing stairs No 09/22/2014 9:26 AM EDT Zahra Thurman LPN No [facility] 09-22-2014 Do you have difficul ty dressing or bathing No 09/22/2014 9:26 AM Zahra Espinosa LPN No [facility] 09-22-2014 Because of a physica l, mental, or emotional condition, do you have difficulty doing errands alone such as visiting a physician's office or shopping Yes 09/22/2014 9:26 AM EDZahra Castellano LPN Yes [facility] Mental Status Date Assessment Result Facility 01-21-2025 Cognitive function Voice/Name [facility] Work Phone: 11-24-2023 Cognitive function Level Of Cons ciousness Awake;Alert;Appropriate;Fol lows Commands [facility] Work Phone: 10-17-2022 Mental Status Orientation Oriented x 4 [facility] 10-17-2022 Mental Status [facility] 12-01-2021 Mental Status [facility] 09-22-2014 Because of a physica l, mental, or emotional condition, do you have serious difficulty concentrating, remembering, or making decisions Yes 09/22/2014 9:26 AM EDT Zahra Thurman LPN Yes [facility] Clinical Notes 02-04-2008 to 01-25-2025 Telephone Encounter - Funmilayo Pope MD - 01/20/2025 9:57 AM EDTTelephone Encounter - Funmilayo Pope MD - 01/20/2025 9:57 AM EDT Note Date & Type Note Facility 01-25-2025 Radiology Diagnostic study note [facility] Imaging Services [address] [place], [place] [id number] Tibia & Fibula 2 Views MR#: [id number] Acct: [id number] Name: MAGNOLIAJULIANA Rep #: [id number] : 1960 F 64 From: Anjelica Elizabeth MD PCP: Mariah Atkinson MD Status: PRE ER Study:Tibia & Fibula 2 Views Date of Exam: 01/25/25 Exam# [id number] Ordering Dr: Jocelyne Orozco DO EXAM: Right [...] Mariah Atkinson MD; Rancho Orozco DO ~ Fabrication Engineer: Signed [facility] 01-25-2025 Radiology Diagnostic study note [facility] Imaging Services [address] [facility] [place] [place] [id number] Pelvis 1 or 2 Views MR#: [id number] Acct: [id number] Name: JULIANA MERIDA Rep #: [id number] : 1960 F 64 From: Anjelica Elizabeth MD PCP: Mariah Atkinson MD Status: PRE ER Study:Pelvis 1 or 2 Views Date of Exam: 01/25/25 Exam# [id number] Ordering Dr: Jocelyne Orozco DO PROCEDURE: PELVIS 1 OR 2 VIEWS 01/25/2025 REASON FOR EXAM: FALL TECHNIQUE: PELVIS 1 OR 2 VIEWS COMPARISON: No FINDINGS: Lower lumbar spine degeneration. Remote left femur injury status post orthopedic repair. Intact pelvic ring. RAD/Pelvis 1 or 2 Views IMPRESSION: Intact pelvic ring. Reading Location: [place] [address] CC: Mariah Atkinson MD; Rancho Orozco DO ~ Fabrication Engineer: Signed [facility] 01-25-2025 Radiology Diagnostic study note [facility] Imaging Services [address] [place], [place] [address] Brain/Head without Contrast MR#: [id number] Acct: [id number] Name: JULIANA MERIDA Rep #: [id number] : 1960 F 64 From: Anjelica Elizabeth MD PCP: Mariah Atkinson MD Status: PRE ER Study:Brain/Head without Contrast Date of Exa m: 01/25/25 Exam# [id number] Ordering Dr: Jocelyne Orozco DO PROCEDURE: BRAIN/HEAD [...] IMPRESSION: No acute intracranial findings. Reading Location: [place] [address] CC: Mariah Atkinson MD; Rancho Orozco DO ~ Fabrication Engineer: Signed [facility] 01-21-2025 Consult note [facility] 01-21-2025 Procedure note [facility] 01-21-2025 Procedure note [facility] 01-21-2025 Consult note [facility] 01-21-2025 History and physi jeromy note [facility] 01-21-2025 Note [facility] Medical Records Department [address] [place] [address] History Physical Exam 01/21/25 0836 MR#: [id number] Acct: [id number] Name: JULIANA MERIDA Rep #: [id number] : 1960 64 From: Fer Simmons DO PCP: Mariah Atkinson MD Status:REG [facility] Location: [place] [address] HPI - General General Date of Admission: 01/21/25 Date of Service: 01/21/25 HPI Narrative JULIANA MERIDA, is a 64 F who presentsWANDMario MERIDA, is a 64 F who presents to the office today for establishment with [facility] for concerns of abdominal epigastric pain, heartburn, and constipation. She resides at [facility] due to history of stroke affecting mobility, [...] emesis, abdominal cramping, diarrhea, hematochezia, and melena. [facility] Medical History History of pressure injury of skin Gastric reflux History of pain when walking Leg cramps Lives in penitentiary Hx of fracture of hip Wears glasses [...] 4 mg PO (more content not included)... [facility] 01-21-2025 Consult note [facility] 01-20-2025 Telephone encounter Note ----- Message from Haylee Montana RN sent at 01/18/2025 9:13 AM EDT ----- Please enter and sign therapy plan for Prolia for Saturday01/25/25. Thanks Haylee [facility] Work Phone: 01-20-2025 Miscellaneous Notes ----- Message from Haylee Montana RN sent at 01/18/2025 9:13 AM EDT ----- Please enter and sign therapy plan for Prolia for Saturday01/25/25. Thanks Haylee documented in this encounter [facility] 11-20-2024 Evaluation note Diagnosis Onset Date Resolution Constipation acute November 20 2:17pm Epigastric abdominal pain acute November 20, 2024 2: 17pm Esophageal reflux chronic November 2:17pm Constipation acute January 21, 025 7:19am Epigastric abdominal pain acute January 21, 2025 7:19am [facility] Work Phone: 1(784) 383-139703-25-2025 Consult note Author Yosef Camp [facility] Note Date/Time January 21, 2025 9:13 am [facility] Medical Records Department [address] [place] [address] Anesthesia Postop Eval I 01/21/25911 MR#: [id number] Acct: [id number] Name: JULIANA MERIDA Rep #:[id number] : 1960 64 From: Yosef Camp PCP: Mariah Atkinson MD Status:REG SDC Y Race: C Location: [place] [address] Anesthesia: Postop Eval I Current Vital Signs [...] Yosef Nolasco Signature: Date CC: ~ Signed [facility] Work Phone: 1(923) 801-753303-16-2025 Radiology Diagnostic study note [facility] Imaging Services [address] [place] [address] Abdomen/Pelvis without Cont MR#: [id number] Acct: [id number] Name: JULIANA MERIDA Rep #: [id number] : 1960 F 63 From: Kimo Loaiza MD PCP: Mariah Atkinson MD Status: REG ER Study:Abdomen/Pelvis without Cont Date of Exa m: 09/27/24 Exam# [id number] Ordering Dr: Graham Cochran DO PROCEDURE: ABDOMEN/PELVIS [...] abdominal and pelvic viscera. There is now yteg-uycxixp-xibm-right mild basilar patchy ill-defined ground- glass opacities [...] dilation or free air. Status post appendectomy. [place] artifact from spinal stimulator device. Aortoiliac atherosclerotic calcification. No abdominal aortic aneurysm. The bladder appears within limits. No free fluid seen. Status post hysterectomy. The ovaries appearwithin limits on noncontrast imaging. [place] artifact from left femoral gamma nail. Small fat containing left inguinalhernia without stranding again noted. CT/Abdomen/Pelvis without Cont IMPRESSION: There is now lggi-hwltxew-negd-right mild basilar patchy ill-defined ground- glass opacities [...] the liver. Status post cholecystectomy. Reading Location: [id number] CC: Mariah Atkinson MD; Dr. Gregorio Cochran, DO ~ Fabrication Engineer: Signed [facility]01-02-2025 Telephone encounter Note* Telephone Encounter - Sandra Dunn - 07/16/2024 9:43 AM EST Marlene Lagunas Approved [id number] [facility] Medicare/Portal 07.15.24-07.15.25 2 visits [employer] Reading Teacher [facility]01-02-2025 Miscellaneous Notes* Telephone Encounter - Sandra Dunn - 07/16/2024 9:43 AM EST Marlene Lagunas Approved [id number] [facility] Medicare/Portal 07.15.24-07.15.25 2 visits [employer] Reading Teacher [facility] Telephone encounter Note * Telephone Encounter [...] know patient was a no show today!! [facility]09-09-2024 Miscellaneous Notes* Telephone Encounter - Valeria [...] a no show today!! [facility]-2024 Telephone encounter Note * Telephone Encounter - Valeria Kapoor MA - 03/23/2024 11:16 AM EDT error [facility]09-09-2024 Miscellaneous Notes* Telephone Encounter - Valeria Sevilla MA - 03/23/2024 11:16 AM EDT error documented in [facility]05-12-2024 Discharge summary Author Dino [facility] November 24, 2023 8:14pm Note Date/Time November 24, 2023 5:05p m [facility] Medical Records Department [address] [place] [address] Emergency Department Summary 11/24/23 MR#: [id number] Acct: [id number] Name: JULIANA MERIDA Rep #:[id number] : 1960 63 From: Dino Pena MD PCP: Bianca Palomares MD Status:REG ER Location: ED HPI History of Present Illness Chief Complaint: Edema Informant: patient Narrative Narrative: 63-year-old patient in a penitentiary presenting with multiple complaints on herown behalf. [...] no orthopnea no new cough or fevers. [facility] Medical History Anxiety Cerebral vascular disease [...] mg rectal suppository (Dulcolax (bisacodyl)) 10 mg NM Q8H PRN 12/18/22 [History Last Taken Unknown] [...] % (Auto) 69.2 Lymph % (Auto) 20.5 Tillman % (Auto) 8.4 Eos % (Auto) 0.6 [...] Clarity Clear Urine pH 7.0 Ur Specific Nogal 1.010 Urine Protein Negative Urine Glucose (UA) [...] [Dulcolax (bisacodyl)] 10 mg suppository 10 mg NM Q8H PRN epinephrine [EpiPen] 0.3 mg/0.3 mL [...] Dr. Newman different dosing desired. Disposition Disposition: [facility] What to do if you have Problems For any increased pain, shortness of breath, bleeding, nausea or vomiting, chestpain, or any unexpected problems, contact your Primary Care Provider. Call [facility] ([phone]) or report to the closest Emergency Room. Call 911 if necessary. 11/24/232013 <Electronically signed by Dino Pena MD> Cosigner Signature (if applicable): CC: Bianca Palomares MD ~ Signed [facility] Work Phone: 1(896) 407-550304-25-2024 Progress note Author [facility] November 07, 2023 12:35pm Note Date/Time November 07, 2023 12: 35pm [facility] [address] [place] [address] Progress Note - Wound Care 11/07/23 1224 MR#: [id number] Acct: [id number] Name: JULIANA MERIDA YANELI Rep #:[id number] : 1960 63 From: Karthikeyan tavares DPM PCP: Bianca Palomares MD Status:[facility] Location: History of Present Illness Date of [...] Start: 10/17/23 09:30 Freq: Status: Active Protocol: ScriptPadBRIANDA Activity Type Activity Date Activity User E-sign [...] service Follow-up Visit Follow-up Visit Follow-up Visit (Physician/BLACK TOPPER (Physician/BLACK TOPPER (Physician/BLACK TOPPER ) ) ) Arrival Mode Wheelchair Wheelchair [...] Visit Information Type of service Follow-up Visit (Physician/BLACK TOPPER ) Arrival Mode Wheelchair Transfer Assistance None [...] Under -Granulation Amt Medium (34-66%) -Granulation Quality Hundred -Slough/Fibrin Yes -Necrosis Amt Large (67-100%) -Necrotic [...] Recorded Date Recorded By Document 10/17/23 10:13 [employer] 10/17/23 10:37 [employer] Document 10/24/23 10:01 [employer] 10/24/23 10:15 [employer] Document 10/31/23 09:59 [employer] Desktop 10/31/23 10:10 [employer] Document 11/07/23 10:10 [employer] Desktop 11/07/23 10:27 [employer] 10/17/23 10/24/23 10/31/23 10:13 10:01 09:59 Wound [...] Desktop 10/17/23 10:52 GM Document 10/24/23 10:22 [facility] Desktop 10/24/23 10:23 BMF Document 10/31/23 11:54 DL [id number] 10/31/23 11:56 DL Document 11/07/23 10:31 KW [...] Provided Yes Facility Type Nursing Home Care [facility] Facility Facility Orders Sent Yes 11/07/23 [...] disease, next appointment 11/20/23. Pain: May take figa-jrd-pdhmxzf Tylenol for discomfort Host factors: DM type II with peripheral polyneuropathy, MRSA positive cultures,edema, chronic tobacco abuse. I answered all the patient's questions. To return to the wound healing center in 1 week or call sooner if the patient has any questions or concerns. 11/07/23 1232 <Electronically signed by Karthikeyan Grove DPM> Cosigner Signature (if applicable): CC: ~ Signed [facility] Work Phone: 1(338) 998-879904-18-2024 Progress note Author Karthikeyan Grove [facility] October 31, 2023 12:37pm Note Date/Time October 31, 2023 12: 26pm [facility] [address] [place] [address] Progress Note - Wound Care 10/31/23 1222 MR#: [id number] Acct: [id number] Name: JULIANA MERIDA YANELI Rep #:[id number] : 1960 63 From: Karthikeyan tavares DPM [...] service Follow-up Visit Follow-up Visit Follow-up Visit (Physician/BLACK TOPPER (Physician/BLACK TOPPER (Physician/BLACK TOPPER ) ) ) Arrival Mode Wheelchair Wheelchair [...] Recorded Date Recorded By Document 10/17/23 10:13 [employer] 10/17/23 10:37 [employer] Document 10/24/23 10:01 [employer] 10/24/23 10:15 [employer] Document 10/31/23 09:59 [employer] 10/31/23 10:10 [employer] 10/17/23 10/24/23 10/31/23 10:13 10:01 09:59 Wound [...] 10:51 Desktop 10/17/23 10:52 Document 10/24/23 10:22 [facility] Desktop 10/24/23 10:23 [facility] Document 10/31/23 11:54 DL [id number] 10/31/23 11:56 DL 10/17/23 10/24/23 10/31/23 10:51 [...] Summary of Care Provided Yes Facility Type [facility] Nursing Home Care Facility Facility Orders Sent Yes [...] disease, next appointment 11/20/23. Pain: May take evjq-tta-yfmugca Tylenol for discomfort Host factors: DM type II with peripheral polyneuropathy, MRSA positive cultures,edema, chronic tobacco abuse. I answered all the patient's questions. To return to the wound healing center in 1 week or call sooner if the patient has any questions or concerns. 10/31/23 1237 <Electronically signed by Karthikeyan Grove DPM> Cosigner Signature (if applicable): CC: ~ Signed [facility] Work Phone: 1(124) 602-738304-11-2024 Progress note Author Karthikeyan Grove [facility] October 24, 2023 11:03am Note Date/Time October 24, 2023 10: 01am [facility] [address] [place] [address] Progress Note - Wound Care 10/24/23 1000 MR#: [id number] Acct: [id number] Name: JULIANA MERIDA YANELI Rep #:[id number] : 1960 63 From: Karthikeyan tavares DPM [...] Type of service Follow-up Visit Follow-up Visit (Physician/BLACK TOPPER (Physician/BLACK TOPPER ) ) Arrival Mode Wheelchair Wheelchair Patient [...] Recorded Date Recorded By Document 10/17/23 09:32 WI Desktop 10/17/23 09:40 WI Document 10/24/23 09:47 KW Desktop 10/24/23 09:55 [...] Recorded Date Recorded By Document 10/17/23 10:13 [facility] [employer] 10/17/23 10:37 [facility] 10/17/23 10:13 Wound Center Nurse 2 [...] referral to infectious disease. Pain: May take vwzt-vzm-nggtdcz Tylenol for discomfort Host factors: DM type II with peripheral polyneuropathy, MRSA positive cultures,edema, chronic tobacco abuse. I answered all the patient's questions. To return to the wound healing center in 1 week or call sooner if the patient has any questions or concerns. 10/24/23 1103 <Electronically signed by Karthikeyan Grove DPM> Cosigner Signature (if applicable): CC: ~ Signed [facility] Work Phone: 1([phone]) 315-890904-04-2024 Progress note Author Karthikeyan Grove [facility] October 17, 2023 7:55pm Note Date/Time October 17, 2023 10:4 2am [facility] [address] [place] [address] Progress Note - Wound Care 10/17/23 1038 MR#: [id number] Acct: [id number] Name: JULIANA MERIDA YANELI Rep #:[id number] : 1960 63 From: Karthikeyan tavares DPM [...] Visit Information Type of service Follow-up Visit (Physician/BLACK TOPPER ) Arrival Mode Wheelchair Patient Identification Verified [...] Recorded Date Recorded By Document 10/17/23 09:32 WI Desktop 10/17/23 09:40 WI 10/17/23 09:32 Wound Center Nurse 1 #1 [...] Recorded Date Recorded By Document 10/17/23 10:13 [facility] Desktop 10/17/23 10:37 [facility] 10/17/23 10:13 Wound Center Nurse 2 [...] referral to infectious disease. Pain: May take hjmt-xrf-giarmmh Tylenol for discomfort Host factors: DM type II with peripheral polyneuropathy, MRSA positive cultures,edema, chronic tobacco abuse. I answered all the patient's questions. To return to the wound healing center in 1 week or call sooner if the patient has any questions or concerns. 10/17/231954 <Electronically signed by Karthikeyan Grove DPM> Cosigner Signature (if applicable): CC: ~ Signed [facility] Work Phone: [phone]) 701-281503-28-2024 Progress note Author Karthikeyan Grove [facility] October 10, 2023 6:59pm Note Date/Time October 10, 2023 10: 34am [facility] [address] [place] [address] Progress Note - Wound Care 10/10/23 1031 MR#: [id number] Acct: [id number] Name: JULIANA MERIDA Rep #:[id number] : 1960 63 From: Karthikeyan tavares DPM [...] service Follow-up Visit Follow-up Visit Follow-up Visit (Physician/BLACK TOPPER (Physician/BLACK TOPPER (Physician/BLACK TOPPER ) ) ) Arrival Mode Wheelchair Wheelchair [...] Visit Information Type of service Follow-up Visit (Physician/BLACK TOPPER ) Arrival Mode Wheelchair Transfer Assistance None [...] (34-66%) Medium (34-66%) Small (1-33%) -Granulation Quality Hundred Hundred Hundred -Slough/Fibrin Yes Yes -Necrosis Amt Medium (34-66%) [...] Recorded Date Recorded By Document 09/19/23 09:53 [employer] 09/19/23 09:59 Document 09/26/23 10:37 [employer] 09/26/23 10:39 Document 10/03/23 10:18 [facility] Desktop 10/03/23 10:30 [facility] 09/19/23 09/26/23 10/03/23 09:53 10:37 10:18 [...] 09/26/23 11:14 RB Document 10/03/23 11:49 DL [id number] 10/03/23 11:50 DL 09/19/23 09/26/23 10/03/23 10:17 [...] hospital for xray as ordered Facility Type Nursing Home Care Facility Orders Sent Yes Assessment/Plan [...] Recommended referral to infectiousdisease. Pain: May take avgf-sth-tmiumaa Tylenol for discomfort Host factors: DM type II with peripheral polyneuropathy, MRSA positive cultures,edema, chronic tobacco abuse. I answered all the patient's questions. To return to the wound healing center in 1 week or call sooner if the patient has any questions or concerns. 10/10/231858 <Electronically signed by Karthikeyan Grove DPM> Cosigner Signature (if applicable): CC: ~ Signed [facility] Work Phone: 1(100) 760-837903-21-2024 History and physical note Author Karthikeyan Grove [facility] October 03, 2023 1:23pm Note Date/Time October 03, 2023 10: 09am [facility] [address] [place] [address] H&P Exam - Wound Care 10/03/23 1008 MR#: [id number] Acct: [id number] Name: JULIANA MERIDA Rep #:[id number] : 1960 62 From: Karthikeyan tavares DPM [...] or otherwise feeling of unwell reported. [facility] Medical History Anxiety Cerebral vascular [...] mg rectal suppository (Dulcolax (bisacodyl)) 10 mg NM Q8H PRN 12/18/22 [History Last Taken Unknown] [...] service Follow-up Visit Follow-up Visit Follow-up Visit (Physician/BLACK TOPPER (Physician/BLACK TOPPER (Physician/BLACK TOPPER ) ) ) Arrival Mode Wheelchair Wheelchair [...] (34-66%) Medium (34-66%) Small (1-33%) -Granulation Quality Hundred Hundred Hundred -Slough/Fibrin Yes Yes -Necrosis Amt Medium (34-66%) [...] Recorded Date Recorded By Document 09/19/23 10:17 [employer] 09/19/23 10:18 Document 09/26/23 11:13 RB Desktop [...] Recommended referral to infectiousdisease. Pain: May take dyjd-tqs-xtoxdww Tylenol for discomfort Host factors: DM type II with peripheral polyneuropathy, MRSA positive cultures,edema, chronic tobacco abuse. I answered all the patient's questions. To return to the wound healing center in 1 week or call sooner if the patient has any questions or concerns. 10/03/23 1323 <Electronically signed by Karthikeyan Grove DPM> Cosigner Signature (if applicable): CC: ~ Signed [facility] Work Phone: 1(672) 494-479003-14-2024 Progress note Author Chilango Laughlin [facility] September 26, 2023 2:01pm Note Date/Time September 26, 2023 12: 14pm [facility] [address] [place] [address] Progress Note - Wound Care 09/26/23 1209 MR#: [id number] Acct: [id number] Name: JULIANA MERIDA YANELI Rep #:[id number] : 1960 62 From: Chilango joy MD [...] 11:34 09/26/23 11:34 Charges/Coding Procedures Integumentary 111xxx-113xx: 97683 Carla subq tissue 20 sq cm/< Physical [...] Type of service Follow-up Visit Follow-up Visit (Physician/BLACK TOPPER (Physician/BLACK TOPPER ) ) Arrival Mode Wheelchair Wheelchair Transfer [...] Date Recorded By Document 09/19/23 09:30 RB [employer] 09/19/23 09:32 RB Document 09/26/23 10:12 RB [...] Amt Medium (34-66%) Medium (34-66%) -Granulation Quality Hundred Hundred -Slough/Fibrin Yes Yes -Necrosis Amt Medium (34-66%) [...] 1 week. This note was generated with Free[employer]geation software. It may contain incorrectwords, spelling, and punctuation that were not noted in checking the note beforesigning. 09/26/23 1401 <Electronically signed by Chilango Laughlin MD> Cosigner Signature (if applicable): CC: ~ Signed [facility] Work Phone: 1([phone]) 549-492303-07-2024 Progress note Author therese Laughlin [facility] September 19, 2023 10:17am Note Date/Time September 19, 2023 10:1 0am [facility] [address] [place] [address] Progress Note - Wound Care 09/19/23 1005 MR#: [id number] Acct: [id number] Name: JULIANA MERIDA YANELI Rep #:[id number] : 1960 62 From: Chilango joy MD [...] 09:30 09/19/23 09:30 Charges/Coding Procedures Integumentary 111xxx-113xx: 28824 Carla subq tissue 20 sq cm/< Physical [...] Visit Information Type of service Follow-up Visit (Physician/BLACK TOPPER ) Arrival Mode Wheelchair Transfer Assistance None [...] Under -Granulation Amt Medium (34-66%) -Granulation Quality Hundred -Slough/Fibrin Yes -Necrosis Amt Medium (34-66%) -Necrotic [...] 1 week. This note was generated with [employer] dictation software. It may contain incorrectwords, spelling, and punctuation that were not noted in checking the note beforesigning. 09/19/23 1017 <Electronically signed by Chilango Laughlin MD> Cosigner Signature (if applicable): CC: ~ Signed [facility] Work Phone: 1([phone]) 780-322603-05-2024 Miscellaneous Notes* Telephone Encounter - Funmilayo Pope MD - 09/17/2023 2:59 PM EST Needs allergies [facility] Progress note Author Chilango Laughlin [facility] September 05, 2023 12:52pm Note Date/Time September 05, 2023 10:04am [facility] [address] [place] [address] Progress Note - Wound Care 09/05/23 0958 MR#: [id number] Acct: [id number] Name: JULIANA MERIDA YANELI Rep #:[id number] : 1960 62 From: Chilango joy MD [...] anaerobic bacteria isolated. Charges/Coding Procedures Integumentary 111xxx-113xx: 81633 Carla subq tissue 20 sq cm/< Physical [...] service Follow-up Visit Follow-up Visit Follow-up Visit (Physician/BLACK TOPPER (Physician/BLACK TOPPER (Physician/BLACK TOPPER ) ) ) Arrival Mode Wheelchair Wheelchair [...] Visit Information Type of service Follow-up Visit (Physician/BLACK TOPPER ) Arrival Mode Wheelchair Transfer Assistance None [...] Small (1-33%) Medium (34-66%) -Granulation Quality Red Hundred Hundred -Slough/Fibrin Yes Yes -Necrosis Amt Medium (34-66%) [...] Attached -Granulation Amt Medium (34-66%) -Granulation Quality Hundred -Slough/Fibrin Yes -Necrosis Amt Medium (34-66%) -Necrotic [...] 1 week. This note was generated with [employer] software. It may contain incorrectwords, spelling, and punctuation that were not noted in checking the note beforesigning. 09/05/23 1252 <Electronically signed by Chilango Laughlin MD> Cosigner Signature (if applicable): CC: ~ Signed [facility] Work Phone: [phone]) 884-891602-16-2024 Progress note Author Chilango Laughlin [facility] August 30, 2023 1:48pm Note Date/Time August 29, 2023 10:09am [facility] [address] [place] [address] Progress Note - Wound Care 08/29/23 1008 MR#: [id number] Acct: [id number] Name: JULIANA MERIDA Rep #:[id number] : 1960 62 From: Chilango joy MD [...] anaerobic bacteria isolated. Charges/Coding Procedures Integumentary 111xxx-113xx: 73843 Carla subq tissue 20 sq cm/< Physical [...] Desktop 08/22/23 08:59 DL Document 08/29/23 09:30 [facility] Desktop 08/29/23 09:34 [facility] 08/15/23 08/22/23 08/29/23 08:53 08:51 09:30 - Today's Visit Information Type of service Follow-up Visit Follow-up Visit Follow-up Visit (Physician/BLACK TOPPER (Physician/BLACK TOPPER (Physician/BLACK TOPPER ) ) ) Arrival Mode Wheelchair Wheelchair [...] Small (1-33%) Medium (34-66%) -Granulation Quality Red Hundred Hundred -Slough/Fibrin Yes Yes -Necrosis Amt Medium (34-66%) [...] 1 week. This note was generated with [employer] dictation software. It may contain incorrectwords, spelling, and punctuation that were not noted in checking the note beforesigning. 08/30/23 1348 <Electronically signed by Chilango Laughlin MD> Cosigner Signature (if applicable): CC: ~ Signed [facility] Work Phone: 1(772) 115-367902-08-2024 Progress note Author Chilango Laughlin [facility] August 22, 2023 9:39am Note Date/Time August 22, 2023 9 :33am [facility] [address] [place] [address] Progress Note - Wound Care 08/22/2328 MR#: [id number] Acct: [id number] Name: JULIANA MERIDA Rep #:[id number] : 1960 62 From: Chilango joy MD [...] Method Room Air Charges/Coding Procedures Integumentary 111xxx-113xx: 39275 Carla subq tissue 20 sq cm/< Physical [...] Recorded Date Recorded By Document 08/15/23 08:53 [facility] Desktop 08/15/23 08:59 [facility] Document 08/22/23 08:51 DL Desktop 08/22/23 08:59 DL 08/15/23 08/22/23 08:53 08:51 - Today's Visit Information Type of service Follow-up Visit Follow-up Visit (Physician/BLACK TOPPER (Physician/BLACK TOPPER ) ) Arrival Mode Wheelchair Wheelchair Transfer [...] Medium (34-66%) Small (1-33%) -Granulation Quality Red Hundred -Slough/Fibrin Yes -Necrosis Amt Medium (34-66%) Small [...] 1 week. This note was generated with [employer] software. It may contain incorrectwords, spelling, and punctuation that were not noted in checking the note beforesigning. 08/22/23 0951 <Electronically signed by Chilango Laughlin MD> Cosigner Signature (if applicable): CC: ~ Signed [facility] Work Phone: [phone]) 966-769802-01-2024 Progress note Author Chilango Laughlin [facility] August 15, 2023 9:38am Note Date/Time August 15, 2023 9 :38am [facility] [address] [place] [address] Progress Note - Wound Care 08/15/23 0936 MR#: [id number] Acct: [id number] Name: JULIANA MERIDA Rep #:[id number] : 1960 62 From: Chilango joy MD [...] Method Room Air Charges/Coding Procedures Integumentary 111xxx-113xx: 43141 Carla subq tissue 20 sq cm/< Physical [...] Recorded Date Recorded By Document 08/15/23 08:53 [facility] Desktop 08/15/23 08:59 [facility] 08/15/23 08:53 - Today's Visit Information Type of service Follow-up Visit (Physician/BLACK TOPPER ) Arrival Mode Wheelchair Transfer Assistance None [...] Recorded Date Recorded By Document 08/15/23 08:53 [facility] Desktop 08/15/23 08:59 [facility] 08/15/23 08:53 Wound Center Nurse 1 [...] 1 week. This note was generated with [employer] dictation software. It may contain incorrectwords, spelling, and punctuation that were not noted in checking the note beforesigning. 08/15/23937 <Electronically signed by Chilango Laughlin MD> Cosigner Signature (if applicable): CC: ~ Signed [facility] Work Phone: [phone]) 532-383501-25-2024 Progress note Author Chilango Laughlin [facility] August 08, 2023 9:32am Note Date/Time August 08, 2023 9 :26am [facility] [address] [place] [address] Progress Note - Wound Care 08/08/23919 MR#: [id number] Acct: [id number] Name: JULIANA MERIDA YANELI Rep #:[id number] : 1960 62 From: Chilango joy MD [...] anaerobic bacteria isolated. Charges/Coding Procedures Integumentary 111xxx-113xx: 78827 Carla subq tissue 20 sq cm/< Physical [...] DL 07/18/23 07/25/23 08/01/23 08:50 08:49 08:39 [facility]'s Visit Information Type of service Follow-up Visit Follow-up Visit Follow-up Visit (Physician/BLACK TOPPER (Physician/BLACK TOPPER (Physician/BLACK TOPPER ) ) ) Arrival Mode Wheelchair Wheelchair [...] Pain Free? Yes Yes Yes 08/08/23 09:02 [facility]'s Visit Information Type of service Follow-up Visit (Physician/BLACK TOPPER ) Arrival Mode Wheelchair Transfer Assistance None [...] Recorded Date Recorded By Document 07/18/23 08:50 [employer] Desktop 07/18/23 08:58 [employer] Document 07/25/23 08:49 [facility] Desktop 07/25/23 08:56 [...] Thickened -Granulation Amt Small (1-33%) -Granulation Quality Pale,Hundred -Slough/Fibrin -Necrosis Amt Small (1-33%) -Necrotic Tissue [...] BMF Edit Result 08/01/23 09:52 BMF (1) [id number] 08/01/23 14:12 GM (1) #1 R Lat [...] Desktop 07/25/23 09:23 GM Document 08/01/23 10:06 [facility] Desktop 08/01/23 10:07 [facility] 07/18/23 07/25/23 08/01/23 09:48 09:22 10:06 [...] of Care Provided Yes Yes Facility Type [facility] Care Facility Assessment/Plan Assessment/Plan (1) Chronic ulcer [...] 1 week. This note was generated with [employer] software. It may contain incorrectwords, spelling, and punctuation that were not noted in checking the note beforesigning. 08/08/23 0932 <Electronically signed by Chilango Laughlin MD> Cosigner Signature (if applicable): CC: ~ Signed [facility] Work Phone: 1([phone]) 105-733801-18-2024 Progress note Author Chilango Laughlin [facility] August 01, 2023 6:49pm Note Date/Time August 01, 2023 1 0:52am [facility] [address] [place] [address] Progress Note - Wound Care 08/01/23 1048 MR#: [id number] Acct: [id number] Name: JULIANA MERIDA Rep #:[id number] : 1960 62 From: Chilango joy MD [...] anaerobic bacteria isolated. Charges/Coding Procedures Integumentary 111xxx-113xx: 66300 Carla subq tissue 20 sq cm/< Physical [...] service Follow-up Visit Follow-up Visit Follow-up Visit (Physician/BLACK TOPPER (Physician/BLACK TOPPER (Physician/BLACK TOPPER ) ) ) Arrival Mode Wheelchair Wheelchair [...] Recorded Date Recorded By Document 07/18/23 08:50 [facility] Desktop 07/18/23 08:58 [facility] Document 07/25/23 08:49 [facility] Desktop 07/25/23 08:56 [facility] Document 08/01/23 08:39 [facility] Desktop 08/01/23 08:49 BMF 07/18/23 07/25/23 [...] 09:05 Desktop 07/25/23 09:11 Document 08/01/23 09:52 [facility] Desktop 08/01/23 09:57 [facility] 07/18/23 07/25/23 08/01/23 09:32 09:05 09:52 [...] 09:22 Desktop 07/25/23 09:23 Document 08/01/23 10:06 [facility] Desktop 08/01/23 10:07 [facility] 07/18/23 07/25/23 08/01/23 09:48 09:22 10:06 [...] 1 week. This note was generated with [employer] dictation software. It may contain incorrectwords, spelling, and punctuation that were not noted in checking the note beforesigning. 08/01/23 1849 <Electronically signed by Chilango Laughlin MD> Cosigner Signature (if applicable): CC: ~ Signed [facility] Work Phone: 1(791) 931-660801-11-2024 Progress note Author Chilango Laughlin [facility] July 25, 2023 10:31am Note Date/Time July 25, 2023 1 0:31am [facility] [address] [place] [address] Progress Note - Wound Care 07/25/23 1028 MR#: [id number] Acct: [id number] Name: JULIANA MERIDA YANELI Rep #:[id number] : 1960 62 From: Chilango joy MD [...] anaerobic bacteria isolated. Charges/Coding Procedures Integumentary 111xxx-113xx: 16255 Carla subq tissue 20 sq cm/< Physical [...] Recorded Date Recorded By Document 07/18/23 08:50 [facility] Desktop 07/18/23 08:58 BM Document 07/25/23 08:49 [facility] Desktop 07/25/23 08:56 BMF 07/18/23 07/25/23 08:50 08:49 - Today's Visit Information Type of service Follow-up Visit Follow-up Visit (Physician/BLACK TOPPER (Physician/BLACK TOPPER ) ) Arrival Mode Wheelchair Wheelchair Transfer [...] Recorded Date Recorded By Document 07/18/23 08:50 [facility] Desktop 07/18/23 08:58 [facility] Document 07/25/23 08:49 [facility] Desktop 07/25/23 08:56 [facility] 07/18/23 07/25/23 08:50 08:49 Wound Center [...] 1 week. This note was generated with [employer] dictation software. It may contain incorrectwords, spelling, and punctuation that were not noted in checking the note beforesigning. 07/25/23 1031 <Electronically signed by Chilango Laughlin MD> Cosigner Signature (if applicable): CC: ~ Signed [facility] Work Phone: 1([phone]) 241-231512-28-2023 Progress note Author therese Laughlin [facility] July 11, 2023 9:25am Note Date/Time July 11, 2023 9:21am [facility] [address] [place] [address] Progress Note - Wound Care 07/11/23 0919 MR#: [id number] Acct: [id number] Name: JULIANA MERIDA YANELI Rep #:[id number] : 1960 62 From: Chilango joy MD [...] Method Room Air Charges/Coding Procedures Integumentary 111xxx-113xx: 59390 Carla subq tissue 20 sq cm/< Physical [...] Type of service Nurse-only Follow-up Visit Visit (Physician/BLACK TOPPER ) Arrival Mode Wheelchair Wheelchair Transfer Assistance [...] Recorded Date Recorded By Document 07/04/23 08:52 [facility] Desktop 07/04/23 09:03 [facility] Document 07/11/23 08:53 Desktop 07/11/23 09:03 [...] Amt Large (67-100%) Small (1-33%) -Granulation Quality Hundred Hundred -Slough/Fibrin Yes -Necrosis Amt Small (1-33%) Medium [...] she's touch wearing is dated for 06/21. [facility] has not changed it since then and [...] BMF Edit Result 07/04/23 08:52 BMF (1) [id number] 07/05/23 06:38 PL (1) Left - Multi-Layered [...] 1 week. This note was generated with [employer] software. It may contain incorrectwords, spelling, and punctuation that were not noted in checking the note beforesigning. 07/11/23 4151 <Electronically signed by Chilango Laughlin MD> Cosigner Signature (if applicable): CC: ~ Signed [facility] Work Phone: 1(395) 565-806311-30-2023 Progress note Author Chilango Laughlin [facility] June 13, 2023 10:53am Note Date/Time June 13, 2023 10:53am [facility] [address] [place] [address] Progress Note - Wound Care 06/13/23 1048 MR#: [id number] Acct: [id number] Name: JULIANA MERIDA Rep #:[id number] : 1960 62 From: Chilango joy MD [...] Method Room Air Charges/Coding Procedures Integumentary 111xxx-113xx: 58725 Carla subq tissue 20 sq cm/< Physical [...] Recorded Date Recorded By Document 05/16/23 09:08 [email or web address] Laptop 05/16/23 09:15 JF Document 05/23/23 09:50 [facility] Desktop 05/23/23 09:56 [facility] Document 05/30/23 09:16 DL Desktop 05/30/23 09:30 DL Document 06/13/23 09:52 [facility] Desktop 06/13/23 09:57 [facility] 05/16/23 05/23/23 05/30/23 09:08 09:50 09:16 - Today's Visit Information Type of service Follow-up Visit Follow-up Visit Follow-up Visit (Physician/BLACK TOPPER (Physician/BLACK TOPPER (Physician/BLACK TOPPER ) ) ) Arrival Mode Wheelchair Wheelchair [...] Visit Information Type of service Follow-up Visit (Physician/BLACK TOPPER ) Arrival Mode Wheelchair Transfer Assistance None [...] (67-100%) Small (1-33%) -Granulation Quality Red Red Hundred -Slough/Fibrin Yes No -Necrosis Amt Small (1-33%) [...] BMF Edit Result 05/23/23 10:36 BMF (1) [id number] 05/23/23 11:07 BMF Document 05/30/23 10:04 DL [...] Care Provided Facility Type Nursing Home Care Facility Assessment/Plan [...] 2 weeks. This note was generated with [employer] dictation software. It may contain incorrectwords, spelling, and punctuation that were not noted in checking the note beforesigning. 06/13/23 1053 <Electronically signed by Chilango Laughlin MD> Cosigner Signature (if applicable): CC: ~ Signed [facility] Work Phone: 1(593) 927-236411-16-2023 Progress note Author Chilango Laughlin [facility] May 30, 2023 10:15am Note Date/Time May 30, 2023 10:15am [facility] [address] [place] [address] Progress Note - Wound Care 05/30/23 1013 MR#: [id number] Acct: [id number] Name: JULIANA MERIDA Rep #:[id number] : 1960 62 From: Chilango joy MD [...] Method Room Air Charges/Coding Procedures Integumentary 111xxx-113xx: 55804 Carla subq tissue 20 sq cm/< Physical [...] Recorded Date Recorded By Document 05/16/23 09:08 [email or web address] Laptop 05/16/23 09:15 [email or web address] Document 05/23/23 09:50 BM Desktop 05/23/23 09:56 BM Document 05/30/23 09:16 DL Desktop 05/30/23 09:30 DL 05/16/23 05/23/23 05/30/23 09:08 09:50 09:16 - Today's Visit Information Type of service Follow-up Visit Follow-up Visit Follow-up Visit (Physician/BLACK TOPPER (Physician/BLACK TOPPER (Physician/BLACK TOPPER ) ) ) Arrival Mode Wheelchair Wheelchair [...] Recorded Date Recorded By Document 05/16/23 09:08 [email or web address] Laptop 05/16/23 09:15 JF Document 05/23/23 09:50 [...] (67-100%) Small (1-33%) -Granulation Quality Red Red Hundred -Slough/Fibrin Yes No -Necrosis Amt Small (1-33%) [...] Recorded Date Recorded By Document 05/16/23 09:25 [employer] 05/16/23 09:30 Document 05/23/23 10:16 Desktop 05/23/23 [...] Desktop 05/16/23 09:39 KW Document 05/23/23 10:36 [facility] Desktop 05/23/23 10:37 [facility] Edit Result 05/23/23 10:36 BMF (1) [id number] 05/23/23 11:07 BMF Document 05/30/23 10:04 DL [...] Summary of Care Provided Yes Facility Type [facility] Family Social Worker Care Facility Assessment/Plan Assessment/Plan (1) Chronic ulcer [...] the holiday. This note was generated with [employer] dictation software. It may contain incorrectwords, spelling, and punctuation that were not noted in checking the note beforesigning. 05/30/23 1015 <Electronically signed by Chilango Laughlin MD> Cosigner Signature (if applicable): CC: ~ Signed [facility] Work Phone: [phone]) 195-117411-09-2023 Progress note Author Chilango Laughlin [facility] May 23, 2023 10:23am Note Date/Time May 23, 2023 1 0:23am [facility] [address] [place] [address] Progress Note - Wound Care 05/23/23 1021 MR#: [id number] Acct: [id number] Name: JULIANA MERIDA Rep #:[id number] : 1960 62 From: Chilango joy MD [...] Method Room Air Charges/Coding Procedures Integumentary 111xxx-113xx: 15802 Carla subq tissue 20 sq cm/< Physical [...] Document 05/23/23 09:50 BM Desktop 05/23/23 09:56 [facility] 05/16/23 05/23/23 09:08 09:50 WC - Today's Visit Information Type of service Follow-up Visit Follow-up Visit (Physician/BLACK TOPPER (Physician/BLACK TOPPER ) ) Arrival Mode Wheelchair Wheelchair Transfer [...] 1 week. This note was generated with [employer] software. It may contain incorrectwords, spelling, and punctuation that were not noted in checking the note beforesigning. 05/23/23 1023 <Electronically signed by Chilango Laughlin MD> Cosigner Signature (if applicable): CC: ~ Signed [facility] Work Phone: 1(814) 293-470811-02-2023 Progress note Author Chilango Laughlin [facility] May 16, 2023 9:37am Note Date/Time May 16, 2023 9 :38am [facility] [address] [place] [address] Progress Note - Wound Care 05/16/23 0930 MR#: [id number] Acct: [id number] Name: JULIANA MERIDA Rep #:[id number] : 1960 62 From: Chilango joy MD [...] 09:08 05/16/23 09:08 Charges/Coding Procedures Integumentary 111xxx-113xx: 07509 Carla subq tissue 20 sq cm/< Physical [...] Visit Information Type of service Follow-up Visit (Physician/BLACK TOPPER ) Arrival Mode Wheelchair Patient Identification Verified [...] Cosigner Signature (if applicable): CC: ~ Signed [facility] Work Phone: 1(698) 155-757110-19-2023 Progress note Author Chilango Laughlin [facility] May 02, 2023 10:11am Note Date/Time May 02, 2023 1 0:11am [facility] [address] [place] [address] Progress Note - Wound Care 05/02/23 1007 MR#: [id number] Acct: [id number] Name: JULIANA MERIDA Rep #:[id number] : 1960 62 From: Chilango joy MD [...] Method Room Air Charges/Coding Procedures Integumentary 111xxx-113xx: 67356 Carla subq tissue 20 sq cm/< Physical [...] Desktop 04/18/23 09:26 RB Document 04/25/23 08:57 [facility] Desktop 04/25/23 09:02 [facility] Document 05/02/23 09:16 [facility] Desktop 05/02/23 09:21 [facility] 04/18/23 04/25/23 05/02/23 09:24 08:57 09:16 - Today's Visit Information Type of service Follow-up Visit Follow-up Visit Follow-up Visit (Physician/BLACK TOPPER (Physician/BLACK TOPPER (Physician/BLACK TOPPER ) ) ) Arrival Mode Wheelchair Wheelchair [...] Desktop 04/18/23 09:26 RB Document 04/25/23 08:57 [facility] Desktop 04/25/23 09:02 [facility] Document 05/02/23 09:16 [facility] Desktop 05/02/23 09:21 [facility] 04/18/23 04/25/23 05/02/23 09:24 08:57 09:16 [...] (1-33%) None Present (0 %) -Granulation Quality Hundred Red -Slough/Fibrin Yes Yes Yes -Necrosis Amt [...] 09:50 Laptop 04/18/23 09:50 Document 04/25/23 09:41 [facility] Desktop 04/25/23 09:42 [facility] Document 05/02/23 09:44 [facility] Desktop 05/02/23 09:45 [facility] 04/18/23 04/25/23 05/02/23 09:50 09:41 09:44 [...] Summary of Care Provided Yes Facility Type [facility] And Family Social Worker Care [facility] Family Social Worker Care Facility Facility Assessment/Plan Assessment/Plan (1) Chronic [...] 2 weeks. This note was generated with [employer] dictation software. It may contain incorrectwords, spelling, and punctuation that were not noted in checking the note beforesigning. 05/02/23 1011 <Electronically signed by Chilango Laughlin MD> Cosigner Signature (if applicable): CC: ~ Signed [facility] Work Phone: [phone]) 155-550110-12-2023 Progress note Author Chilango Laughlin [facility] April 25, 2023 1:18pm Note Date/Time April 25, 2023 1 :18pm [facility] [address] [place] [address] Progress Note - Wound Care 04/25/23 1317 MR#: [id number] Acct: [id number] Name: JULIANA MERIDA YANELI Rep #:[id number] : 1960 62 From: Chilango joy MD [...] Method Room Air Charges/Coding Procedures Integumentary 111xxx-113xx: 55386 Carla subq tissue 20 sq cm/< Physical [...] Type of service Follow-up Visit Follow-up Visit (Physician/BLACK TOPPER (Physician/BLACK TOPPER ) ) Arrival Mode Wheelchair Wheelchair Transfer [...] Desktop 04/18/23 09:26 RB Document 04/25/23 08:57 [facility] Desktop 04/25/23 09:02 BM 04/18/23 04/25/23 [...] Amt Medium (34-66%) Small (1-33%) -Granulation Quality Hundred Red -Slough/Fibrin Yes Yes -Necrosis Amt Medium [...] 09:50 Laptop 04/18/23 09:50 Document 04/25/23 09:41 [facility] Desktop 04/25/23 09:42 [facility] 04/18/23 04/25/23 09:50 09:41 Wound Care [...] Summary of Care Provided Yes Facility Type Marriage And Family Social Worker Care Facility Assessment/Plan Assessment/Plan (1) Chronic ulcer [...] 1 week. This note was generated with [employer] software. It may contain incorrectwords, spelling, and punctuation that were not noted in checking the note beforesigning. 04/25/23 1318 <Electronically signed by Chilango Laughlin MD> Cosigner Signature (if applicable): CC: ~ Signed [facility] Work Phone: [phone]) 973-188510-05-2023 Progress note Author Chilango Laughlin [facility] April 18, 2023 9:57am Note Date/Time April 18, 2023 9: 57am [facility] [address] [place] [address] Progress Note - Wound Care 04/18/23 0955 MR#: [id number] Acct: [id number] Name: JULIANA MERIDA YANELI Rep #:[id number] : 1960 62 From: Chilango joy MD [...] 09:24 04/18/23 09:24 Charges/Coding Procedures Integumentary 111xxx-113xx: 75479 Carla subq tissue 20 sq cm/< Physical [...] Visit Information Type of service Follow-up Visit (Physician/BLACK TOPPER ) Arrival Mode Wheelchair Transfer Assistance None [...] Attached -Granulation Amt Medium (34-66%) -Granulation Quality Hundred -Slough/Fibrin Yes -Necrosis Amt Medium (34-66%) -Necrotic [...] 1 week. This note was generated with [employer] software. It may contain incorrectwords, spelling, and punctuation that were not noted in checking the note beforesigning. 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 Pt paperwork on her info sheet was same that we had scanned in August. Called nursing facility[facility] they were stumped as well, sent me to the business operations consultant who is reviewing it. She isto call me back. Pending documented in this encounterMer[facility]08-23-2023 Miscellaneous Notes* Telephone Encounter - Funmilayo Pope MD - 03/06/2023 3:41 PM EDT ----- Message from Haylee Jules RN sent at 03/06/2023 9:31 AM EDT ----- Please enter new CAM order for Prolia. Current order is >1 yr old. Pt's appt Tuesday 03/13. Thanks Haylee documented in this encounterMer[facility]07-27-2023 Progress note Author Chilango Laughlin [facility] February 07, 2023 11:52am Note Date/Time February 07, 2023 11:3 5am [facility] [address] [place] [address] Progress Note - Wound Care 02/07/23 1135 MR#: [id number] Acct: [id number] Name: JULIANA MERIDA YANELI Rep #:[id number] : 1960 62 From: Chilango joy MD [...] Method Room Air Charges/Coding Procedures Integumentary 150xxx-152xx: 74562 Skin sub graft trnk/arm/leg Physical Exam Const [...] Date Recorded By Document 01/17/23 09:59 JF [id number] 01/17/23 10:00 JF Document 01/24/23 09:02 KW [id number] 01/24/23 09:20 KW Document 01/31/23 08:45 RB [id number] 01/31/23 08:51 RB Document 02/07/23 09:16 RB [id number] 02/07/23 09:17 RB 01/17/23 01/24/23 01/31/23 09:59 09:02 08:45 WC - Today's Visit Information Type of service Follow-up Visit Follow-up Visit Follow-up Visit (Physician/BLACK TOPPER (Physician/BLACK TOPPER (Physician/BLACK TOPPER ) ) ) Arrival Mode Wheelchair Wheelchair [...] Visit Information Type of service Follow-up Visit (Physician/BLACK TOPPER ) Arrival Mode Wheelchair Transfer Assistance None [...] Recorded Date Recorded By Document 01/17/23 09:59 [id number] 01/17/23 10:00 Document 01/24/23 09:02 KW [id number] 01/24/23 09:20 KW Document 01/31/23 08:45 RB [id number] 01/31/23 08:51 RB Document 02/07/23 09:16 RB [id number] 02/07/23 09:17 RB 01/17/23 01/24/23 01/31/23 09:59 [...] Small (1-33%) Medium (34-66%) -Granulation Quality Red Hundred Hundred -Slough/Fibrin Yes -Necrosis Amt Medium (34-66%) Small [...] Date Recorded By Document 01/17/23 10:11 MW [id number] 01/17/23 10:20 MW Document 01/24/23 09:52 MW [id number] 01/24/23 09:54 MW Document 01/31/23 09:28 MW [id number] 01/31/23 09:36 MW Document 02/07/23 10:00 MW [id number] 02/07/23 10:08 MW 01/17/23 01/24/23 01/31/23 10:11 [...] Date 11/13/27 11/13/27 12/14/27 -Product Lot Number [id number] 002 001 -Percent Used 100 100 100 -Lot number of Saline Used [id number] -Bleeding Controlled with Pressure Pressure Pressure -Treatment [...] Disc -Expiration Date 11/13/27 -Product Lot Number [id number] -Percent Used 100 -Lot number of Saline Used [id number] -Bleeding Controlled with Pressure -Treatment Response Procedure [...] Recorded Date Recorded By Document 01/17/23 12:06 [id number] 01/17/23 12:07 JF Document 01/24/23 10:01 JF [id number] 01/24/23 10:02 JF Document 01/31/23 09:49 RB [id number] 01/31/23 09:50 RB Document 02/07/23 10:22 RB [id number] 02/07/23 10:23 RB 01/17/23 01/24/23 01/31/23 12:06 [...] Stable Ambulatory Status Wheelchair Wheelchair Wheelchair Transportation [employer] Medication Reconcilliation completed & Yes Yes No [...] 2 weeks. This note was generated with [employer] dictation software. It may contain incorrectwords, spelling, and punctuation that were not noted in checking the note beforesigning. 02/07/23 1152 <Electronically signed by Chilango Laughlin MD> Cosigner Signature (if applicable): CC: ~ Signed [facility] Work Phone: 1(320) 780-871307-20-2023 Progress note Author Chilango Laughlin [facility] January 31, 2023 10:02am Note Date/Time January 31, 2023 10:0 2am [facility] [address] [place] [address] Progress Note - Wound Care 01/31/23 1000 MR#: [id number] Acct: [id number] Name: JULIANA MERIDA YANELI Rep #:[id number] : 1960 62 From: Chilango joy MD [...] Method Room Air Charges/Coding Procedures Integumentary 150xxx-152xx: 92066 Skin sub graft trnk/arm/leg Physical Exam Const [...] Date Recorded By Document 01/17/23 09:59 JF [id number] 01/17/23 10:00 JF Document 01/24/23 09:02 KW [id number] 01/24/23 09:20 KW Document 01/31/23 08:45 RB [id number] 01/31/23 08:51 RB 01/17/23 01/24/23 01/31/23 09:59 09:02 08:45 - Today's Visit Information Type of service Follow-up Visit Follow-up Visit Follow-up Visit (Physician/BLACK TOPPER (Physician/BLACK TOPPER (Physician/BLACK TOPPER ) ) ) Arrival Mode Wheelchair Wheelchair [...] Date Recorded By Document 01/17/23 09:59 JF [id number] 01/17/23 10:00 JF Document 01/24/23 09:02 KW [id number] 01/24/23 09:20 KW Document 01/31/23 08:45 RB [id number] 01/31/23 08:51 RB 01/17/23 01/24/23 01/31/23 09:59 [...] Small (1-33%) Medium (34-66%) -Granulation Quality Red Hundred Hundred -Slough/Fibrin Yes -Necrosis Amt Medium (34-66%) Small [...] Date Recorded By Document 01/17/23 10:11 MW [id number] 01/17/23 10:20 MW Document 01/24/23 09:52 MW [id number] 01/24/23 09:54 MW Document 01/31/23 09:28 MW [id number] 01/31/23 09:36 MW 01/17/23 01/24/23 01/31/23 10:11 [...] Date 11/13/27 11/13/27 12/14/27 -Product Lot Number [id number] 002 001 -Percent Used 100 100 100 -Lot number of Saline Used [id number] -Bleeding Controlled with Pressure Pressure Pressure -Treatment [...] Recorded Date Recorded By Document 01/17/23 12:06 [id number] 01/17/23 12:07 Document 01/24/23 10:01 [id number] 01/24/23 10:02 Document 01/31/23 09:49 [id number] 01/31/23 09:50 01/17/23 01/24/23 01/31/23 12:06 10:01 [...] Ambulatory Status Wheelchair Wheelchair Wheelchair Transportation [employer] Medication Reconcilliation completed & Yes Yes No [...] 1 week. This note was generated with [employer] dictation software. It may contain incorrectwords, spelling, and punctuation that were not noted in checking the note beforesigning. 01/31/23 1002 <Electronically signed by Chilango Laughlin MD> Cosigner Signature (if applicable): CC: ~ Signed [facility] Work Phone: 1(847) 677-820407-13-2023 Progress note Author Chilango Laughlin [facility] January 24, 2023 11:28am Note Date/Time January 24, 2023 11:2 8am [facility] [address] [place] [address] Progress Note - Wound Care 01/24/23 1125 MR#: [id number] Acct: [id number] Name: JULIANA MERIDA YANELI Rep #:[id number] : 1960 62 From: Chilango joy MD [...] Method Room Air Charges/Coding Procedures Integumentary 150xxx-152xx: 42996 Skin sub graft trnk/arm/leg Physical Exam Const [...] Date Recorded By Document 01/17/23 09:59 JANICE [id number] 01/17/23 10:00 JF Document 01/24/23 09:02 DARCY [id number] 01/24/23 09:20 KW 01/17/23 01/24/23 09:59 09:02 WC - Today's Visit Information Type of service Follow-up Visit Follow-up Visit (Physician/BLACK TOPPER (Physician/BLACK TOPPER ) ) Arrival Mode Wheelchair Wheelchair Patient [...] Date Recorded By Document 01/17/23 09:59 JF [id number] 01/17/23 10:00 JF Document 01/24/23 09:02 KW [id number] 01/24/23 09:20 KW 01/17/23 01/24/23 09:59 09:02 [...] Medium (34-66%) Small (1-33%) -Granulation Quality Red Hundred -Slough/Fibrin Yes -Necrosis Amt Medium (34-66%) Small [...] Date Recorded By Document 01/17/23 10:11 MW [id number] 01/17/23 10:20 MW Document 01/24/23 09:52 MW [id number] 01/24/23 09:54 MW 01/17/23 01/24/23 10:11 09:52 [...] -Expiration Date 11/13/27 11/13/27 -Product Lot Number [id number] -Percent Used 100 100 -Lot number of Saline Used [id number] -Bleeding Controlled with Pressure Pressure -Treatment Response [...] Date Recorded By Document 01/17/23 12:06 JANICE [id number] 01/17/23 12:07 Document 01/24/23 10:01 [id number] 01/24/23 10:02 01/17/23 01/24/23 12:06 10:01 Wound [...] Stable Ambulatory Status Wheelchair Wheelchair Transportation [email or web address] Medication Reconcilliation completed & Yes Yes provided [...] 1 week. This note was generated with [employer] dictation software. It may contain incorrectwords, spelling, and punctuation that were not noted in checking the note beforesigning. 01/24/23 1128 <Electronically signed by Chilango Laughlin MD> Cosigner Signature (if applicable): CC: ~ Signed [facility] Work Phone: 1(501) 814-314307-06-2023 Progress note Author Chilango Laughlin [facility] January 17, 2023 12:32pm Note Date/Time January 17, 2023 12:29 pm [facility] [place] [address] Progress Note - Wound Care 01/17/23 1226 MR#: [id number] Acct: [id number] Name: JULIANA MERIDA Rep #:[id number] : 1960 62 From: Chilango joy MD [...] 09:59 01/17/23 09:59 Charges/Coding Procedures Integumentary 150xxx-152xx: 83160 Skin sub graft trnk/arm/leg Physical Exam Const [...] Date Recorded By Document 01/17/23 09:59 JANICE [id number] 01/17/23 10:00 JANICE 01/17/23 09:59 RUY - Today's Visit Information Type of service Follow-up Visit (Physician/BLACK TOPPER ) Arrival Mode Wheelchair Patient Identification Verified [...] Recorded Date Recorded By Document 01/17/23 09:59 [id number] 01/17/23 10:00 01/17/23 09:59 Wound Center Nurse [...] Recorded Date Recorded By Document 01/17/23 10:11 [id number] 01/17/23 10:20 MW 01/17/23 10:11 Wound Center [...] Disc -Expiration Date 11/13/27 -Product Lot Number [id number] -Percent Used 100 -Bleeding Controlled with [...] Date Recorded By Document 01/17/23 12:06 JANICE [id number] 01/17/23 12:07 JANICE 01/17/23 12:06 Wound Care [...] 1 week. This note was generated with [employer] dictation software. It may contain incorrectwords, spelling, and punctuation that were not noted in checking the note beforesigning. 01/17/23 1232 <Electronically signed by Chilango Laughlin MD> Cosigner Signature (if applicable): CC: ~ Signed [facility] Work Phone: 1(347) 374-171606-30-2023 Progress note Author Beata Pardo [facility] January 11, 2023 5:30pm Note Date/Time January 11, 2023 5:30 pm [facility] [address] [place] [address] Progress Note - Wound Care 01/11/23 1723 MR#: [id number] Acct: [id number] Name: JULIANA MERIDA Rep #:[id number] : 1960 62 From: Beata HILLIARD PCP: [...] Method Room Air Charges/Coding Procedures Integumentary 150xxx-152xx: 95295 Skin sub graft trnk/arm/leg Physical Exam Const [...] Recorded Date Recorded By Document 12/13/22 09:39 [facility] [id number] 12/13/22 09:42 [facility] Document 12/20/22 09:48 [facility] [id number] 12/20/22 09:59 BM Document 01/03/23 09:05 [facility] [id number] 01/03/23 09:16 BM Document 01/11/23 13:25 PL [id number] 01/11/23 13:35 PL 12/13/22 12/20/22 01/03/23 09:39 09:48 09:05 - Today's Visit Information Type of service Follow-up Visit Follow-up Visit Follow-up Visit (Physician/BLACK TOPPER (Physician/BLACK TOPPER (Physician/BLACK TOPPER ) ) ) Arrival Mode Wheelchair Wheelchair [...] WILL TAKE PAIN MEDS UPON RETURN TO [facility] 01/11/23 13:25 - Today's Visit Information Type of service Follow-up Visit (Physician/BLACK TOPPER ) Arrival Mode Wheelchair Transfer Assistance None [...] Recorded Date Recorded By Document 12/13/22 09:39 [facility] [id number] 12/13/22 09:42 [facility] Document 12/20/22 09:48 [facility] [id number] 12/20/22 09:59 [facility] Document 01/03/23 09:05 [facility] [id number] 01/03/23 09:16 [facility] 12/13/22 12/20/22 01/03/23 09:39 09:48 09:05 [...] Date Recorded By Document 12/13/22 09:53 MW [id number] 12/13/22 10:02 MW Document 12/20/22 10:48 MW [id number] 12/20/22 10:58 MW Document 01/03/23 10:08 MW [id number] 01/03/23 10:17 MW Document 01/11/23 15:55 PL [id number] 01/11/23 15:56 PL 12/13/22 12/20/22 01/03/23 09:53 [...] Date 09/13/27 10/14/27 10/14/27 -Product Lot Number [id number] 001 006 -Percent Used 100 100 100 -Lot number of Saline Used [id number] -Bleeding Controlled with Pressure Pressure Pressure -Treatment [...] Disc -Expiration Date 10/14/27 -Product Lot Number [id number] -Percent Used 100 -Lot number of [...] Date Recorded By Document 12/13/22 10:17 DL [id number] 12/13/22 10:18 DL Document 12/20/22 11:45 DL [id number] 12/20/22 11:46 DL Document 01/03/23 10:33 [facility] [id number] 01/03/23 10:34 [facility] Document 01/11/23 14:04 RB [id number] 01/11/23 14:05 RB 12/13/22 12/20/22 01/03/23 10:17 [...] Clinical Summary of Care Provided Facility Type [facility] Family Social Worker Care [facility] Family Social Worker Care [facility] Family Social Worker Care Facility Facility Facility Orders Sent Yes [...] as scheduled. This note was generated with FreeChargeation software. It may contain incorrectwords, spelling, and punctuation that were not noted in checking the note beforesigning. 01/11/23 5910 <Electronically signed by Beata HILLIARD> Cosigner Signature (if applicable): CC: ~ Signed [facility] Work Phone: 1(479) 207-423906-22-2023 Progress note Author Chilango Laughlin [facility] January 03, 2023 1:45pm Note Date/Time January 03, 2023 10:4 3am [facility] [address] [place] [address] Progress Note - Wound Care 01/03/23 1037 MR#: [id number] Acct: [id number] Name: JULIANA MERIDA Rep #:[id number] : 1960 62 From: Chilango joy MD [...] Method Room Air Charges/Coding Procedures Integumentary 150xxx-152xx: 46933 Skin sub graft trnk/arm/leg Physical Exam Const [...] Recorded Date Recorded By Document 12/13/22 09:39 [facility] [id number] 12/13/22 09:42 [facility] Document 12/20/22 09:48 [facility] [id number] 12/20/22 09:59 [facility] Document 01/03/23 09:05 [facility] [id number] 01/03/23 09:16 [facility] 12/13/22 12/20/22 01/03/23 09:39 09:48 09:05 - Today's Visit Information Type of service Follow-up Visit Follow-up Visit Follow-up Visit (Physician/BLACK TOPPER (Physician/BLACK TOPPER (Physician/BLACK TOPPER ) ) ) Arrival Mode Wheelchair Wheelchair [...] WILL TAKE PAIN MEDS UPON RETURN TO [facility] WC - Nurse 1 - General Ulcer Measurement Start: 12/13/22 09:39 Freq: Status: Active Protocol: Activity Type Activity Date Activity User E-sign Co-sign Detail Recorded Client Recorded Date Recorded By Document 12/13/22 09:39 [facility] [id number] 12/13/22 09:42 [facility] Document 12/20/22 09:48 [facility] [id number] 12/20/22 09:59 [facility] Document 01/03/23 09:05 [facility] [id number] 01/03/23 09:16 [facility] 12/13/22 12/20/22 01/03/23 09:39 09:48 09:05 [...] Date Recorded By Document 12/13/22 09:53 MW [id number] 12/13/22 10:02 MW Document 12/20/22 10:48 MW [id number] 12/20/22 10:58 MW Document 01/03/23 10:08 MW [id number] 01/03/23 10:17 MW 12/13/22 12/20/22 01/03/23 09:53 [...] Date 09/13/27 10/14/27 10/14/27 -Product Lot Number [id number] 001 006 -Percent Used 100 100 100 -Lot number of Saline Used [id number] -Bleeding Controlled with Pressure Pressure Pressure -Treatment [...] Date Recorded By Document 12/13/22 10:17 DL [id number] 12/13/22 10:18 DL Document 12/20/22 11:45 DL [id number] 12/20/22 11:46 DL Document 01/03/23 10:33 [facility] [id number] 01/03/23 10:34 BM 12/13/22 12/20/22 01/03/23 10:17 [...] Private Auto Private Auto F Facility Type Marriage And Family Social Worker Care Marriage [facility] Family Social Worker Care Nursing Home Care Facility Facility Facility [...] with me. This note was generated with [employer] dictation software. It may contain incorrectwords, spelling, and punctuation that were not noted in checking the note beforesigning. 01/03/23 1345 <Electronically signed by Chilango Laughlin MD> Cosigner Signature (if applicable): CC: ~ Signed [facility] Work Phone: [phone]) 707-355206-08-2023 Progress note Author therese Laughlin [facility] December 20, 2022 12:33pm Note Date/Time December 20, 2022 12:33 pm [facility] [address] [place] [address] Progress Note - Wound Care 12/20/22 1223 MR#: [id number] Acct: [id number] Name: JULIANA MERIDA YANELI Rep #:[id number] : 1960 62 From: Chilango joy MD [...] Method Room Air Charges/Coding Procedures Integumentary 150xxx-152xx: 28360 Skin sub graft trnk/arm/leg Physical Exam Const [...] Recorded Date Recorded By Document 12/13/22 09:39 [facility] [id number] 12/13/22 09:42 [facility] Document 12/20/22 09:48 [facility] [id number] 12/20/22 09:59 [facility] 12/13/22 12/20/22 09:39 09:48 - Today's Visit Information Type of service Follow-up Visit Follow-up Visit (Physician/BLACK TOPPER (Physician/BLACK TOPPER ) ) Arrival Mode Wheelchair Wheelchair Transfer [...] WILL TAKE PAIN MEDS UPON RETURN TO [facility] WC - Nurse 1 - General Ulcer Measurement Start: 12/13/22 09:39 Freq: Status: Active Protocol: Activity Type Activity Date Activity User E-sign Co-sign Detail Recorded Client Recorded Date Recorded By Document 12/13/22 09:39 [facility] [id number] 12/13/22 09:42 [facility] Document 12/20/22 09:48 [facility] [id number] 12/20/22 09:59 [facility] 12/13/22 12/20/22 09:39 09:48 Wound Center [...] Date Recorded By Document 12/13/22 09:53 MW [id number] 12/13/22 10:02 MW Document 12/20/22 10:48 MW [id number] 12/20/22 10:58 MW 12/13/22 12/20/22 09:53 10:48 [...] -Expiration Date 09/13/27 10/14/27 -Product Lot Number [id number] 001 -Percent Used 100 100 -Lot number of Saline Used [id number] -Bleeding Controlled with Pressure Pressure -Treatment Response [...] Date Recorded By Document 12/13/22 10:17 DL [id number] 12/13/22 10:18 DL Document 12/20/22 11:45 DL [id number] 12/20/22 11:46 DL 12/13/22 12/20/22 10:17 11:45 [...] Transportation Private Auto Private Auto Facility Type Nursing Home Care Marriage And Family Social Worker Care Facility Facility Orders Sent Yes Yes [...] if needed. This note was generated with FreeChargeation software. It may contain incorrectwords, spelling, and punctuation that were not noted in checking the note beforesigning. 12/20/22 1233 <Electronically signed by Chilango Laughlin MD> Cosigner Signature (if applicable): CC: ~ Signed [facility] Work Phone: 1(496) 285-635006-01-2023 Progress note Author Chilango Laughlin [facility] December 13, 2022 10:30am Note Date/Time December 13, 2022 10:19 am [facility] [address] [place] [address] Progress Note - Wound Care 12/13/22 1017 MR#: [id number] Acct: [id number] Name: JULIANA MERIDA YANELI Rep #:[id number] : 1960 62 From: Chilango joy MD [...] 09:39 12/13/22 09:39 Charges/Coding Procedures Integumentary 150xxx-152xx: 94090 Skin sub graft trnk/arm/leg Physical Exam Const [...] Recorded Date Recorded By Document 12/13/22 09:39 [facility] [id number] 12/13/22 09:42 [facility] 12/13/22 09:39 WC - Today's Visit Information Type of service Follow-up Visit (Physician/BLACK TOPPER ) Arrival Mode Wheelchair Transfer Assistance None [...] Recorded Date Recorded By Document 12/13/22 09:39 [facility] [id number] 12/13/22 09:42 [facility] 12/13/22 09:39 Wound Center Nurse 1 [...] Date Recorded By Document 12/13/22 09:53 MW [id number] 12/13/22 10:02 MW 12/13/22 09:53 Wound Center [...] Disc -Expiration Date 09/13/27 -Product Lot Number [id number] -Percent Used 100 -Lot number of Saline Used [id number] -Bleeding Controlled with Pressure -Treatment Response Procedure [...] if needed. This note was generated with FreeCharge[employer] software. It may contain incorrectwords, spelling, and punctuation that were not noted in checking the note beforesigning. 12/13/22 1030 <Electronically signed by Chilango Laughlin MD> Cosigner Signature (if applicable): CC: ~ Signed [facility] Work Phone: 1(794) 254-754205-25-[address] Laughlin [facility] December 06, 2022 10:40am Note Date/Time December 06, 2022 10:40 am [facility] [address] [place] [address] Progress Note - Wound Care 12/06/22 1038 MR#: [id number] Acct: [id number] Name: JULIANA MERIDA Rep #:[id number] : 1960 62 From: Chilango joy MD [...] anaerobic bacteria isolated. Charges/Coding Procedures Integumentary 150xxx-152xx: 72707 Skin sub graft trnk/arm/leg Physical Exam Const [...] Date Recorded By Document 11/22/22 08:59 DL [id number] 11/22/22 09:12 DL Document 11/29/22 09:28 [facility] [id number] 11/29/22 09:43 BMF Document 12/06/22 09:36 DL [id number] 12/06/22 09:46 DL 11/22/22 11/29/22 12/06/22 08:59 09:28 09:36 WC - Today's Visit Information Type of service Initial Visit Follow-up Visit Follow-up Visit (Physician/BLACK TOPPER (Physician/BLACK TOPPER ) ) Arrival Mode Wheelchair Wheelchair Wheelchair [...] & Hygeine No Communication Assessment Preferred language Tajik Able to Read Yes Able to Write [...] in Ability to Perform Denies Any Declines Culture/Orthodoxy/Statistical Clerk Cultural/Orthodoxy Needs that may affect No Treatment Plan Would you allow our hospital cigar bander hand to No meet you for the purpose of spiritual/ emotional support? Statistical Clerk to contact place of religion No Teaching: Wound Center Discharge Instructions -Person Taught Patient Dressing Your Wound -Person Taught Patient *Welcome to the Wound Center -Person Taught Patient WC - Nurse 1 - General Ulcer Measurement Start: 11/22/22 08:59 Freq: Status: Active Protocol: Activity Type Activity Date Activity User E-sign Co-sign Detail Recorded Client Recorded Date Recorded By Document 11/22/22 08:59 DL [id number] 11/22/22 09:12 DL Document 11/29/22 09:28 [facility] [id number] 11/29/22 09:43 BMF Document 12/06/22 09:36 DL [id number] 12/06/22 09:46 DL 11/22/22 11/29/22 12/06/22 08:59 [...] (34-66%) Large (67-100%) -Granulation Quality Red Red Pale,Hundred -Slough/Fibrin Yes -Necrosis Amt Small (1-33%) Medium [...] Date Recorded By Document 11/22/22 09:38 MW [id number] 11/22/22 09:48 MW Document 11/29/22 09:52 [id number] 11/29/22 10:00 JF Document 12/06/22 10:26 MW [id number] 12/06/22 10:37 MW 11/22/22 11/29/22 12/06/22 09:38 [...] -Expiration Date 06/14/27 08/15/27 -Product Lot Number [id number] 005 -Percent Used 100 100 -Lot number of Saline Used [id number] -Bleeding Controlled with Pressure Pressure Pressure -Treatment [...] Date Recorded By Document 11/22/22 10:16 RB [id number] 11/22/22 10:17 RB Document 11/29/22 10:09 [facility] [id number] 11/29/22 10:10 [facility] 11/22/22 11/29/22 10:16 10:09 Wound Care [...] if needed. This note was generated with [employer] software. It may contain incorrectwords, spelling, and punctuation that were not noted in checking the note beforesigning. 12/06/22 1040 <Electronically signed by Chilango Laughlin MD> Cosigner Signature (if applicable): CC: ~ Signed [facility] Work Phone: 1(240) 517-218305-18-[address] Laughlin [facility] November 29, 2022 1:11pm Note Date/Time November 29, 2022 1:11p m [facility] [address] [place] [address] Progress Note - Wound Care 11/29/22 1302 MR#: [id number] Acct: [id number] Name: JULIANA MERIDA Rep #:[id number] : 1960 62 From: Chilango joy MD [...] anaerobic bacteria isolated. Charges/Coding Procedures Integumentary 150xxx-152xx: 42663 Skin sub graft trnk/arm/leg Physical Exam Const [...] Recorded Date Recorded By Document 11/22/22 08:59 [id number] 11/22/22 09:12 DL Document 11/29/22 09:28 [facility] [id number] 11/29/22 09:43 [facility] 11/22/22 11/29/22 08:59 09:28 - Today's Visit Information Type of service Initial Visit Follow-up Visit (Physician/BLACK TOPPER ) Arrival Mode Wheelchair Wheelchair Transfer Assistance [...] & Hygeine No Communication Assessment Preferred language Tajik Able to Read Yes Able to Write [...] in Ability to Perform Denies Any Declines Culture/Orthodoxy/Statistical Clerk Cultural/Orthodoxy Needs that may affect No Treatment Plan Would you allow our hospital cigar bander hand to No meet you for the purpose of spiritual/ emotional support? Statistical Clerk to contact place of religion No Teaching: Wound Center Discharge Instructions -Person Taught Patient Dressing Your Wound -Person Taught Patient *Welcome to the Wound Center -Person Taught Patient WC - Nurse 1 - General Ulcer Measurement Start: 11/22/22 08:59 Freq: Status: Active Protocol: Activity Type Activity Date Activity User E-sign Co-sign Detail Recorded Client Recorded Date Recorded By Document 11/22/22 08:59 DL [id number] 11/22/22 09:12 DL Document 11/29/22 09:28 BM [id number] 11/29/22 09:43 BMF 11/22/22 11/29/22 08:59 09:28 [...] Date Recorded By Document 11/22/22 09:38 MW [id number] 11/22/22 09:48 MW Document 11/29/22 09:52 [id number] 11/29/22 10:00 JF 11/22/22 11/29/22 09:38 09:52 [...] Epifix -Expiration Date 06/14/27 -Product Lot Number [id number] -Percent Used 100 -Lot number of Saline Used [id number] -Bleeding Controlled with Pressure Pressure -Treatment Response [...] Date Recorded By Document 11/22/22 10:16 RB [id number] 11/22/22 10:17 RB Document 11/29/22 10:09 [facility] [id number] 11/29/22 10:10 [facility] 11/22/22 11/29/22 10:16 10:09 Wound Care [...] if needed. This note was generated with [employer] dictation software. It may contain incorrectwords, spelling, and punctuation that were not noted in checking the note beforesigning. 11/29/22 1311 <Electronically signed by Chilango Laughlin MD> Cosigner Signature (if applicable): CC: ~ Signed [facility] Work Phone: 1(268) 927-148705-12-2023 History and physical note Author Dr. Laughlin [facility] November 23, 2022 11:49am Note Date/Time November 22, 2022 1:34p m [facility] [address] [place] [address] H&P Exam - Wound Care 11/22/22 1322 MR#: [id number] Acct: [id number] Name: JULIANA MERIDA Rep #:[id number] : 1960 62 From: Chilango joy MD [...] vomitingor change in bowel habit reported. [facility] Medical History (Updated 11/22/22 @ 13:32 [...] Date Recorded By Document 11/22/22 08:59 DL [id number] 11/22/22 09:12 DL 11/22/22 08:59 - Today's [...] & Hygeine No Communication Assessment Preferred language Tajik Able to Read Yes Able to Write [...] in Ability to Perform Denies Any Declines Culture/Orthodoxy/Statistical Clerk Cultural/Orthodoxy Needs that may affect No Treatment Plan Would you allow our hospital cigar bander hand to No meet you for the purpose of spiritual/ emotional support? Statistical Clerk to contact place of religion No Teaching: Wound Center Discharge Instructions -Person Taught Patient Dressing Your Wound -Person Taught Patient *Welcome to the Wound Center -Person Taught Patient WC - Nurse 1 - General Ulcer Measurement Start: 11/22/22 08:59 Freq: Status: Active Protocol: Activity Type Activity Date Activity User E-sign Co-sign Detail Recorded Client Recorded Date Recorded By Document 11/22/22 08:59 DL [id number] 11/22/22 09:12 DL 11/22/22 08:59 Wound Center [...] Date Recorded By Document 11/22/22 09:38 MW [id number] 11/22/22 09:48 MW 11/22/22 09:38 Wound Center [...] Date Recorded By Document 11/22/22 10:16 RB [id number] 11/22/22 10:17 RB 11/22/22 10:16 Wound Care [...] Charges/Coding Visit Charges Office Visits / Consults: 63591 OV L4 New Procedures Integumentary 111xxx-113xx: 90198 Carla subq tissue 20 sq cm/< Assessment/Plan [...] if needed. This note was generated with [employer] dictation software. It may contain incorrectwords, spelling, and punctuation that were not noted in checking the note beforesigning. 11/23/22 1369 <Electronically signed by Chilango Laughlin MD> Cosigner Signature (if applicable): CC: ~ Signed [facility] Work Phone: 1(447) 268-840604-05-2023 Hospital Discharge instructions Patient Education 10/17/2022 05:07:08 [...] thin towel or cloth. You may use eewp-vgi-muiqsuy pain medicine (NSAIDS or nonsteroidal anti- inflammatory [...] or is irritated You re-injure your ankle [phone] [employer] [place] [address]. All rights reserved. This information is not intended as a substitute for professional medical care. Always follow yourhealthcare professional's instructions. Follow Up Care 10/17/2022 04:04:56 With:LANA ARRIETA Address: [address] [place] [address]- Business (1) When:2-4 days [facility] 04-05-2023 Note Discharge Instructions Thank you for allowing [facility] to assist you with your healthcare needs. The following is importantdischarge information regarding your hospital visit. Diagnosis from Today's Visit Leg pain-swelling Sprain What to Do Next Instructions from Your Care Team No qualifying data available. Post Acute Orders No qualifying data available. You Need to Schedule the Following Appointments Follow Up with LANA ARRIETA When Within 2-4 days Where: [address] [place], [place] [id number]- Business (1) Allergies Apricots (Rash) Bee Stings (Anaphylactic reaction) [place] (Rash) Dilaudid Lactose Milk Products (Rash) Peas (Rash) Phenergan Tomatoes tuberculin purified protein derivative (Lactose intolerance) Medications Please ask your primary doctor or pharmacist before taking any other medication not listed, including over the counter drugs, herbal medications, vitamins and or supplements as they may interact [facility]. What How Much When Instructions [...] thin towel or cloth. You may use isrh-hnj-jtkifxq pain medicine (NSAIDS or nonsteroidal anti- inflammatory [...] or is irritated You re-injure your ankle [phone] [employer]. [address] [place] [address]. All rights reserved. This information is not intended as a substitute for professional medical care. Always follow yourhealthcare professional's instructions. Additional Information VACCINATE! IT SAVES LIVES! Members of the community who have not yet received the COVID-19 vaccine and would like to receive it can visit one of [facility] vaccine clinics. There are many vaccine clinic locations within the [facility]. For locations and available times, please visit [email or web address] It is important to note that some COVID mobile vaccine clinics are held outdoors and may be canceled in rainy or stormy conditions. To learn more about pediatric vaccinations (ages 5-11), we invite you to visit the [facility] webpage. https://[email or web address].org/pages/5870-Auaoc-Zazoskwmije-Rvfkergwcf-Slhyc-Lxt stions.htmlTo learn more about the COVID-19 vaccine, we invite you to visit the CDC website for a list of frequently asked questions. https://www.cdc.gov/coronavirus/2019-ncov/vaccines/faq.html [facility] Patient Portal Access Instructions: Stay connected with your healthcare team and access your personal medical information anytime with the [facility] Patient Portal. If you would like a full copy of your medical records please contact the [facility] Medical Records Department Saturday through Saturday between 8a.m. and 4:30p.m. Please follow the directions below to access the portal: 1.Access the email account you provided upon registration to the [facility].2.Look for an invitation email from [facility].3.Open the email and access the invitation link: Accept Invitation to [facility]4.Fill in the required lozano to create your [...] you will allow to register on the [facility] Patient Portal for access to your information. You can also access the [facility] Patient Portal on the [employer]. Simply click on Health Records under giddy and then click on the Ta logo. [...] Call your local pharmacy or go to http://RatingBug.[email or web address] to find one close to you.3.Make use of household items: Use cat litter or old coffee grounds to dispose medications if other options arenot available. Mix your drugs with these household products, seal them in an airtight container andthrow it into the garbage. Call [facility]: [phone] to be sure your drugs can be [...] aware that I should contact my doctor. Patient/Sheet Metal Former Signature: Date/Time: Relationship to Patient: Witness Name/Signature: Date/Time: [facility]04-05-2023 Note ORIGINAL EXAMINATION: 6 XRAY VIEWS OF [...] Sign Date: 10/17/2022 5:04:00 AM Ordering Provider: [address]05-2023 Note ORIGINAL EXAMINATION: THREE XRAY VIEWS [...] Sign Date: 10/17/2022 5:02:30 AM Ordering Provider: [place] [address]-05-2023 Note ORIGINAL EXAMINATION: 6 XRAY VIEWS OF [...] Sign Date: 10/17/2022 5:04:00 AM Ordering Provider: [facility]04-05-2023 Note ORIGINAL EXAMINATION: THREE XRAY [...] Sign Date: 10/17/2022 5:02:30 AM Ordering Provider: [facility]03-02-2023 History of Present illness Narrative* [...] getting TPI. Now seeing Dr. Ruel[place] in [place] Has morphine pump Meeting with pain mgmt [...] Antibody Latest Ref Range: <30 IU/mL <12 Anti-GAS PLANT OPERATOR Latest Ref Range: <1.0 AI 0.7 [...] file. Funmilayo Pope MD [facility] Discharge instructions Patient Education 04/28/2022 [...] Swelling, pain or redness in one leg 1371-2017 [employer]. [address] [place] [address]. All rights reserved. This information is not intended as a substitute for professional medical care. Always follow yourhealthcare professional's instructions. Follow Up Care 04/28/2022 17:19:37 With:LANA ARRIETA Address: [address] [place] [facility] [place] [address]- Business (1) When:2-4 days Comments:Schedule appointment for close follow-up.Resume all routine home medications.Return to the ED if symptoms worsen. [facility] 10-15-2022 Note ORIGINAL EXAMINATION: ONE XRAY VIEW [...] Date: 04/28/2022 6:24:18 PM Ordering Provider: TAVIA [facility]10-15-2022 Note ORIGINAL EXAMINATION: ONE XRAY [...] Date: 04/28/2022 6:24:18 PM Ordering Provider: TAVIA [facility]07-20-2022 Miscellaneous Notes* Telephone Encounter - Esther Lopez [place] [facility]pg - 01/31/2022 10:53 AM EDT Prolia - NO PA REQ for medicare B Esther Lopez [facility] Ppg Advised Ashtyn to schedule pt. * Telephone Encounter - Berenice Edmond PA-C - 01/31/2022 9:40 AM EDT ARMINDA Edmond PA-C documented in this encounterMer[facility]07-20-2022 Miscellaneous Notes* Addendum Note - Berenice Edmond PA-C - 01/31/2022 9:41 AM EDT Addended by: BERENICE EDMOND on: 01/31/2022 09:41 AM Modules accepted: Orders documented in this encounterMercy Health [facility]rb[facility]07-20-2022 History of Present illness Narrative* Berenice Edmond PA-C - 01/31/2022 8:56 AM EDT Images from the original note were not included. [facility] General Arthritis and Rheumatology Berenice Edmond [address] [address] RHEUMATOLOGY PROGRESS NOTE Patient is here for [...] getting TPI. Now seeing Dr. Ruelas in [place] Has morphine pump Meeting with pain mgmt [...] Antibody Latest Ref Range: <30 IU/mL <12 Anti-GAS PLANT OPERATOR Latest Ref Range: <1.0 AI 0.7 [...] Pope. Berenice Edmond PA-C documented in this encounterMercy [facility]06-01-2022 History of Present illness Narrative* Ronaldo Villarreal MD - 12/13/2021 10:00 AM EDT [facility] HPI Juliana Merida is a 61 year old female who presents for TPI. Her pain is located over the neck (R>L) and low back. There is also radiation into the arms and legs. The patient has an ITP pump and is seeking a new provider for management. This was placed in 2011 and replaced in [address] Ruelas in [place]. A referral was entered for an consultation with [facility] for an evaluation. Review of [...] (FLONASE) 50 mcg/actuation nasal spray Use 1 [place] in each nostril once daily. . 0 [...] daily as needed. 1 Inhalation 11 Insulin [place], Disposable, (PEN NEEDLE) 29 x 1/2 ndle [...] Bupivacaine 5 %, Amitriptyline 2 % 0 Bgepfgwwqsefi-Fxspuuhf-Jllocp (CENTRUM SILVER) tab Take 1 tablet by [...] times (time out, procedure start, procedure end). [place] protocol documentation / Pre-Procedure checklist: 1. Unless [...] Ronaldo Villarreal MD [facility] * Madeleine Verma MA - 12/13/2021 [...] The patient is nervous/anxious. documented in this encounterMercy [facility]06-01-2022 Procedure note* Ronaldo Villarreal MD - [...] procedurewell without apparent complications. documented in this encounterMercy Health [facility]rb[facility]06-01-2022 Instructions* Patient Instructions* Tejal Carter LPN - 12/13/2021 9:29 AM EDT documented in this encounterMercy Health [facility]06-01-2022 Nurse Note* Madeleine Verma MA - [...] are you scheduled to receive one? n [place] Former's Name: Medical Transportation documented [facility] this [facility] Evaluation + Plan note Diagnostic Tests Pending * Urine Culture 12/01/21 [facility] 05-20-2022 Hospital Discharge instructions Patient Education 12/01/2021 [...] or a fever with an unknown cause. Cyao-bnb-ifftrhr medicines will not shorten the duration of [...] your healthcare provider Feeling weak or dizzy [id number] [employer]. [address] [place] [address]. All rights reserved. This information is not intended as a substitute for professional medical care. Always follow yourhealthcare professional's instructions. Follow Up Care 11/30/2021 18:10:39 With:LANA ARRIETA MD Address: [address] [place] [address] [place] [address]- When:2-4 days [facility] 05-19-2022 HCoV 229E RNA IRISH+non-probe Ql (Nph)Not Detected *NA* (11/30/21 8:58 PM) Auto Viro/Sero [id number] Procedure note* Luis Pagan, DO - 11/21/2021 [...] chart. Luis Pagan DO documented in this [facility]04-28-2022 Miscellaneous Notes* Telephone Encounter - Samara Coronado - 11/09/2021 3:02 PM EDT 11/09/2021 PT WILL CALL IN WITH JOI PHONE NUMBER FOR THE CANCELLATION LIST. PT. NEEDS TO COME IN FORTPI WITH JUDAH PORRAS. WAS SCHEDULED INCORRECT. Samara Coronado documented in this [facility]04[facility]-2022 Miscellaneous Notes* Telephone Encounter - Funmilayo Pope MD - 10/17/2021 12:34 PM EDT Does reclast need PA? documented in this [facility]01-24-2022 NoteHNO ID: [id number] Author: Yrn Frost RT(R) Service: ? Author [...] BY: RT Elvin(R) August 07, 2021 11:37 [facility]07-23-2008 History of Past illness Narrative* [...] of this encounter (statuses as of 10/17/2021) [facility] History of Past illness Narrative* Problem [...] of this encounter (statuses as of 11/09/2021) [address]23-2008 History of Past illness Narrative* Problem [...] of this encounter (statuses as of 11/21/2021) [address]23-2008 History of Past illness Narrative* Problem [...] of this encounter (statuses as of 11/29/2021) [address]23-2008 History of Past illness Narrative* Problem [...] of this encounter (statuses as of 12/13/2021) [address]23[address]2008 History of Past illness Narrative* Problem [...] of this encounter (statuses as of 01/31/2022) [address]23[address]2008 History of Past illness Narrative* Problem [...] of this encounter (statuses as of 01/31/2022) [place] [address]-23-2008 History of Past illness Narrative* Problem Noted [...] of this encounter (statuses as of 03/07/2022) [address]2008 History of Past illness Narrative* Problem [...] of this encounter (statuses as of 09/05/2022) [address]23[address]2008 History of Past illness Narrative* Problem [...] of this encounter (statuses as of 09/13/2022) [facility] of [facility] illness Narrative* Problem [...] of this encounter (statuses as of 03/07/2023) [address] History of Past illness Narrative* Problem [...] of this encounter (statuses as of 03/13/2023) [facility] of [facility] illness Narrative* Problem [...] of this encounter (statuses as of 03/13/2023) [facility] of [facility] illness Narrative* Problem [...] of this encounter (statuses as of 03/26/2023) [facility] of [facility] illness Narrative* Problem [...] of this encounter (statuses as of 09/20/2023) [facility] of Past illness Narrative* Problem [...] of this encounter (statuses as of 10/07/2023) [facility] HospitalConsult note Author Eric Kancherla [facility] Note Date/Time January 21, 2025 8:23 am [facility] Medical Records Department [address] [place] [address] Pre-Anesthesia Evaluation 01/21/2510 MR#: [id number] Acct: [id number] Name: JULIANA MERIDA Rep #:[id number] : 1960 64 From: Eric Monte MD PCP: Mariah Atkinson MD Status:REG SDC Y Race: C Location: [place] [address] ASA Classification* ASA Classification ASA Classification: 3 [...] Procedure(s): EGD Anesthesia History Anesthesia History - supervisor drilling and shooting: Anesthesia History - supervisor drilling and shooting Hx Hospitalization No 01/20/25 11:52 Any Problems [...] take am of surgery PONV PONV - supervisor drilling and shooting: PONV - supervisor drilling and shooting Female Yes 01/20/25 11:52 HX of Motion [...] 01/21/25 07:45 Respiratory Assessment Respiratory Assessment - supervisor drilling and shooting: Respiratory Tract Infection Hx - supervisor drilling and shooting Hx Respiratory Tract Infection No 01/30/24 12:09 STOP Sleep Apnea STOP Sleep Apnea - supervisor drilling and shooting: STOP Sleep Apnea - supervisor drilling and shooting Hx Hypertension Yes 01/20/25 11:52 Hx Sleep [...] Tobacco Use History Tobacco Use History - supervisor drilling and shooting: Tobacco Use History - supervisor drilling and shooting Tobacco Use Smoking Status Light Smoker (<10/day) 01/20/25 11:52 Hx Tobacco Use Yes 01/20/25 11:52 Years Smoking Packs Smoked per Day Smoking Cessation Date was within the last 15 years Hx Smoking Cessation Date Hx Smoking Cessation No 01/20/25 11:52 Counseling Any additional information?: Yes Smoking Status: Former smoker (Patient quit smoking 2 and half months ago.) Hematologic Medial History Hematologic Hx - supervisor drilling and shooting: Hematologic Medical Hx - web manager Hx of Blood Transfusion Hx of Transfusion in last 3 Months Date of Last Transfusion (if within last 3 months) Ever experience any problems with transfusion(s)? Specify any problems Hx of Preganancy in last 3 Months Nurse Filling Out Transfusion & Questions: Date: Time: Patient unable to answer at Yes 01/20/25 11:52 this time (ie. confused, unrespo /Reproduction History /Reproductive History - supervisor drilling and shooting: /Reproductive Hx- supervisor drilling and shooting Hx Now No 01/20/25 11:52 Gestational Age [...] pain when walking Leg cramps [facility] pen[facility] Hx of fracture of hip Wears glasses [...] 2.5 mg/3 mL 2.5 mg inhalation Q4H NM N SOB 07/29/21 Unknown History (0.083 %) [...] MD Cosigner Signature: Date CC: ~ Signed [facility] Work Phone: Consult note Author Kimmie Serna [facility] Note Date/Time January 21, 2025 10:0 2am [facility] Medical Records Department [address] [place] [address] Anesthesia Postop Eval II 01/21/2549 MR#: [id number] Acct: [id number] Name: JULIANA MERIDA Rep #:[id number] : 1960 64 From: Kimmie DE LA CRUZ PCP: Mariah Atkinson MD Status:REG SDC Y Race: C Location: [place] [address] Anesthesia Postop Eval I Sum Postop Eval [...] CRNA Cosigner Signature: Date CC: ~ Signed [facility] Work Phone: evaluation + Plan note Future Appointments Appointment Date:09/28/2024 01:00:00 PM Scheduled Provider:MAULIK العلي DO Location:UROLOGY Appointment Type:URO OV Future Scheduled Tests Radiology* Renal 09/13/24 [facility] Evaluation + Plan note Future Appointments Appointment Date:10/01/2025 02:00:00 PM Scheduled Provider:MAULIK العلي DO Location:UROLOGY Appointment Type:URO OV Future Scheduled Tests Radiology* Renal 09/13/24 [facility] Evaluation note* Diagnosis Disturbance of skin sensation- Primary [facility]* Diagnosis Other osteoporosis without current pathological fracture- Primary documented in this encounter [facility] note* Diagnosis Myofascial pain- Primary Mylagia and myositis, unspecified Implantable intrathecal infusion pump present documented in this encounter [facility] noteNo assessment information availableWKing's Daughters [facility] [place] Work Phone: evaluation note* Diagnosis Other osteoporosis without current pathological fracture- Primary Primary osteoarthritis involving multiple joints Vitamin D deficiency Unspecified vitamin D deficiency [facility]* Diagnosis Other osteoporosis without current pathological fracture- Primary documented in this encounter [facility] note* Diagnosis Other osteoporosis without current pathological fracture- Primary [facility]* Diagnosis Low back pain, unspecified back pain laterality, unspecified chronicity, unspecified whether sciatica present- Primary Pain in both lower extremities Osteoporosis, unspecified osteoporosis type, unspecified pathological fracture presence documented in this encounter [facility]* Diagnosis Onset Date Resolution Status Insulin dependent diabetes mellitus acute Tobacco abuse acute 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 [facility] Work Phone: evaluation note* Diagnosis Onset [...] right ankle with fat layer exposed chronic [facility] Work Phone: Evaluation note* Diagnosis Onset [...] of distal end of left fibula noneactive [facility] Work Phone: Evaluation note* Diagnosis Osteoporosis, unspecified osteoporosis type, unspecified pathological fracture presence- Primary documented in this [facility]* Diagnosis Osteoporosis, unspecified osteoporosis type, unspecified pathological fracture presence- Primary documented in this encounter [facility]* Diagnosis Onset Date Resolution Status Chronic [...] right ankle with fat layer exposed chronic [facility] Work Phone: Evaluation note* Diagnosis Onset [...] right ankle with fat layer exposed chronic [facility] Work Phone: Evaluation note* Diagnosis Onset [...] right ankle with fat layer exposed chronic [facility] Work Phone: Evaluation note* Diagnosis Onset [...] right ankle with fat layer exposed chronic [facility] Work Phone: Evaluation note* Diagnosis Other osteoporosis without current pathological fracture- Primary documented in this encounter [facility]* Diagnosis Osteoporosis, unspecified osteoporosis type, unspecified pathological fracture presence- Primary documented in this encounter [facility]* Diagnosis Onset Date Resolution Status [...] with fat layer exposed chronic Hyperlipidemia chronic [facility] Work Phone: Evaluation note* Diagnosis Onset [...] with fat layer exposed chronic Hyperlipidemia chronic [facility] Work Phone: Evaluation note* Diagnosis Onset [...] of tobacco use chron ic Hyperlipidemia chronic [facility] Work Phone: Evaluation note* Diagnosis Age-related osteoporosis without current pathological fracture- Primary Senile osteoporosis documented in this encounter [facility] HospitalHistory and physical note Author Fer Friend [facility] Note Date/Time January 21, 2025 8:37 am [facility] Medical Records Department [address] [place] [address] History & Physical Exam 01/21/25 0836 MR#: [id number] Acct: [id number] Name: JULIANA MERIDA YANELI Rep #:[id number] : 1960 64 From: Fer Simmons DO PCP: Mariah Atkinson MD Status:[facility] Location: [place] [address] HPI - General General Date of Admission: 01/21/25 Date of Service: 01/21/25 HPI Narrative JULIANA MERIDA, is a 64 F who presentsWANCMario MAGNOLIA, is a 64 F who presents to the office today for establishment with [facility] for concerns of abdominal epigastric pain, heartburn, and constipation. She resides at [facility] due to history of stroke affecting mobility, [...] emesis, abdominal cramping, diarrhea, hematochezia, and melena. [facility] Medical History History of pressure injury of skin Gastric reflux History of pain when walking Leg cramps Lives in penitentiary Hx of fracture of hip Wears glasses [...] 2.5 mg/3 mL 2.5 mg inhalation Q4H NM N SOB 07/29/21 Unknown History (0.083 %) [...] to the office today for establishment with [facility] for concerns of abdominal epigastric pain, heartburn, and constipation. Constipation is most likely drug-induced. Discussed care plan with her. She has never had an EGD but her last colonoscopy was done in [place] around 2022. * polyethylene glycol (Miralax) 17gm [...] Mariah Atkinson MD; Fer Simmons DO~ Signed [facility] Work Phone: Hospital course Narrative No data available for this section [facility] Hospital Discharge instructions No data available for this section [facility] Hospital Discharge instructions Additional Instructions 17 mm exophytic mass right kidney seen. Further workup advised as an outpatient. Increase furosemide to 60 mg once a day, or as advised by Dr. Palomares if different dosing desired.[facility] Work Phone: Hospital Discharge instructionsAdditional Instructions [...] the ER should you have any further concernsWKing's Daughters [facility] [place] Work Phone: Note* TAVIA NORRIS MD: SIGN, VERIFY Event Display: EKG [ED AOH] - CV Authored Date: [id number] [facility] Progress note No data available for this section [facility] Reason for referral (narrative)No reason for referral information availableWKing's Daughters [facility] [place] Work Phone: Summary Purpose Family History Relationship [...] Will No July 29 11:45pm Power of Furniture Designer No July 29, 2021 11:45pm Advance Directive Response Recorded Date/ Time Advance Directives No July 27, 2016 2:54pm Living Will No July 29 10:45pm Power of Furniture Designer No July 29, 2021 10:45pm Advance Directive Response Recorded Date/ Time Advance Directives No July 27, 2016 3:54pm Living Will Yes November 24, 2023 4 :30pm Power of Furniture Designer No November 24, 2023 4:30pm Advance Directive Response Recorded Date/ Time Living Will No September 12, 2024 11:13pm Power of Furniture Designer Yes September 12 11:13pm Name of Medical Power of Furniture Designer jose armas September 12, 2024 11:13pm Living Will No September 27, 2024 1:40am Power of Furniture Designer Yes September 27 1:40am Name of Medical Power of Furniture Designer JOSE ARMAS September 27, 2024 1:40am Advance Directives No July 27, 2016 3:54pm Advance Directive Response Recorded Date/ Time Living Will No September 27, 2024 1:40am Do you have a Healthcare Power of Furniture Designer? Yes September 27, 2024 1:40am Name of Medical Power of Furniture Designer JOSE ARMAS September 27, 2024 1:40am Do you have a Healthcare Power of Furniture Designer? No January 20, 2025 11:52am Advance Directives No July 27, 2016 3:54pm Advance Directive Response Recorded Date/ Time Living Will No September 27, 2024 1:40am Do you have a Healthcare Power of Furniture Designer? Yes September 27, 2024 1:40am Name of Medical Power of Furniture Designer JOSE ARMAS September 27, 2024 1:40am Do you have a Healthcare Power of Furniture Designer? No January 20, 2025 11:52am Do you have a Healthcare Power of Furniture Designer? Yes January 24, 2025 10:43pm Name of Medical Power of Furniture Designer Jose Armas January 24, 2025 10:43pm Advance [...] CONSULT TO PAIN MGT Ronaldo Villarreal MD [address] [place] [address] Referral ID Status Reason Start Date Expiration Date Visits Requested Visits Authorized [id number] Ref Not Required PCP Requested Referral 12/13/2021 [...] section and content) DATE CREATED AUTHOR 01/08/2018 [facility] DATE CREATED AUTHOR AUTHOR'S ORGANIZ ATION 2021 [facility] DATE CREATED AUTHOR AUTHOR'S ORGANIZ ATION 10/07/2023 [facility] DATE CREATED AUTHOR AUTHOR'S ORGANIZ ATION 11/21/2024 [facility] DATE CREATED AUTHOR AUTHOR'S ORGANIZ ATION 01/24/2025 [facility] DATE CREATED AUTHOR AUTHOR'S ORGANIZ ATION 01/24/2025 [facility] Source Comments (unrecognize d section and content) In the event this informatio n is protected by the Federal Confidentiality of Alcohol and Drug Abuse Patient Records regulations: The Federal rules restrict any use of the information to criminally investigate or prosecute any alcohol or drug abuse patient.[facility] HospitalIn the event this information is protected by the Federal Confidentiality of Alcohol and Drug Abuse Patient Records regulations: The Federal rules restrict any use of the information to criminally investigate or prosecute any alcohol or drug abuse patient.[facility] HospitalIn the event this information is protected by the Federal Confidentiality of Alcohol and Drug Abuse Patient Records regulations: The Federal rules restrict any use of the information to criminally investigate or prosecute any alcohol or drug abuse patient.[facility] HospitalIn the event this information is protected by the Federal Confidentiality of Alcohol and Drug Abuse Patient Records regulations: The Federal rules restrict any use of the information to criminally investigate or prosecute any alcohol or drug abuse patient.[facility] HospitalIn the event this information is protected by the Federal Confidentiality of Alcohol and Drug Abuse Patient Records regulations: The Federal rules restrict any use of the information to criminally investigate or prosecute any alcohol or drug abuse patient.[facility] HospitalIn the event this information is protected by the Federal Confidentiality of Alcohol and Drug Abuse Patient Records regulations: The Federal rules restrict any use of the information to criminally investigate or prosecute any alcohol or drug abuse patient.[facility] HospitalIn the event this information is protected by the Federal Confidentiality of Alcohol and Drug Abuse Patient Records regulations: The Federal rules restrict any use of the information to criminally investigate or prosecute any alcohol or drug abuse patient.[facility] HospitalIn the event this information is protected by the Federal Confidentiality of Alcohol and Drug Abuse Patient Records regulations: The Federal rules restrict any use of the information to criminally investigate or prosecute any alcohol or drug abuse patient.[facility] HospitalIn the event this information is protected by the Federal Confidentiality of Alcohol and Drug Abuse Patient Records regulations: The Federal rules restrict any use of the information to criminally investigate or prosecute any alcohol or drug abuse patient.[facility] HospitalIn the event this information is protected by the Federal Confidentiality of Alcohol and Drug Abuse Patient Records regulations: The Federal rules restrict any use of the information to criminally investigate or prosecute any alcohol or drug abuse patient.[facility] HospitalIn the event this information is protected by the Federal Confidentiality of Alcohol and Drug Abuse Patient Records regulations: The Federal rules restrict any use of the information to criminally investigate or prosecute any alcohol or drug abuse patient.[facility] HospitalIn the event this information is protected by the Federal Confidentiality of Alcohol and Drug Abuse Patient Records regulations: The Federal rules restrict any use of the information to criminally investigate or prosecute any alcohol or drug abuse patient.[facility] HospitalIn the event this information is protected by the Federal Confidentiality of Alcohol and Drug Abuse Patient Records regulations: The Federal rules restrict any use of the information to criminally investigate or prosecute any alcohol or drug abuse patient.[facility] HospitalIn the event this information is protected by the Federal Confidentiality of Alcohol and Drug Abuse Patient Records regulations: The Federal rules restrict any use of the information to criminally investigate or prosecute any alcohol or drug abuse patient.[facility] HospitalIn the event this information is protected by the Federal Confidentiality of Alcohol and Drug Abuse Patient Records regulations: The Federal rules restrict any use of the information to criminally investigate or prosecute any alcohol or drug abuse patient.[facility] HospitalIn the event this information is protected by the Federal Confidentiality of Alcohol and Drug Abuse Patient Records regulations: The Federal rules restrict any use of the information to criminally investigate or prosecute any alcohol or drug abuse patient.[facility] HospitalIn the event this information is protected by the Federal Confidentiality of Alcohol and Drug Abuse Patient Records regulations: The Federal rules restrict any use of the information to criminally investigate or prosecute any alcohol or drug abuse patient.[facility] HospitalIn the event this information is protected by the Federal Confidentiality of Alcohol and Drug Abuse Patient Records regulations: The Federal rules restrict any use of the information to criminally investigate or prosecute any alcohol or drug abuse patient.[facility] HospitalIn the event this information is protected by the Federal Confidentiality of Alcohol and Drug Abuse Patient Records regulations: The Federal rules restrict any use of the information to criminally investigate or prosecute any alcohol or drug abuse patient.[facility] HospitalIn the event this information is protected by the Federal Confidentiality of Alcohol and Drug Abuse Patient Records regulations: The Federal rules restrict any use of the information to criminally investigate or prosecute any alcohol or drug abuse patient.[facility] HospitalIn the event this information is protected by the Federal Confidentiality of Alcohol and Drug Abuse Patient Records regulations: The Federal rules restrict any use of the information to criminally investigate or prosecute any alcohol or drug abuse patient.[facility] Reason for Visit (unrecogniz ed section and content) Reason Comments Imm/Inj Specialty Diagnoses / Procedures Referred By Contac t Referred To Contact Neurology / HEMONC INFUSION Diagnoses // prolia Procedures DENOSUMAB INJECTION TREATMENT 30 MINUTES Funmilayo Pope MD [address] [place] [address] [facility] [address] [place] [address] Referral ID Status Reason Start Date Expiration Date V isits Requested Visits Authorized [id number] Authorized 07/27/2024 07/15/2025 1 2 Specialty Diagnoses / Procedures Referred By Contac t Referred To Contact HEMATOLOGY/ONCOLOGY Diagnoses Other osteoporosis without current pathological fracture Procedures DENOSUMAB INJECTION Prolia [id number] Funmilayo Pope MD [address] [place] [address] Joe Ag [facility] [place] [address] [place] [address] Referral ID Status Reason Start Date Expiration Date V isits Requested Visits Authorized [id number] Authorized 01/31/2022 03/26/2024 2 2 Reason Comments Medication Follow-up Reason Comments Patient Update NEW PHONE NUMBER Reason Comments Infusion Specialty Diagnoses / Procedures Referred By Contbenitez t Referred To Contact Diagnoses Other osteoporosis without current pathological fracture Procedures Funmilayo King MD [address] [place] [address] [facility] [place] [address] [place] [address] Referral ID Status Reason Start Date Expiration Date V isits Requested Visits Authorized [id number] Authorized 09/12/2021 12/11/2021 99 99 Reason Comments Procedure Reason Comments Osteoarthritis Reason Comments Medication Authorization Prolia - NO PA REQ for medicare B Reason Comments Osteoporosis BMD on 08/07/2021 Reason Comments Orders Reason Comments APPROVED Prolia ([place]) APPROV ED [id number] 03.26.23 - 03.26.24 for 2 visits [facility] Medicare/Portal Reason Comments Results Reason Comments Appointment Reason Comments Medication Preauthorization Prolia- [place] Approved [id number] [facility] Medicare/Portal 07.15.24-07.15.25 2 visits Care Teams (unrecognized sec tion and content) Data Processing Equipment Repairer Relationship Specialty Start Date End Date Lana Arrieta MD [address] [place] [place] [address] PCP - General [facility] 12/28/20 Data Processing Equipment Repairer Relationship Specialty Start Date End Date Lana Arrieta MD [address] [place] [address] PCP - General [facility] 12/28/20 Data Processing Equipment Repairer Relationship Specialty Start Date End Date Lana Arrieta MD [address] [place] [place] [address] PCP - [facility] Practice 12/28/20 Data Processing Equipment Repairer Relationship Specialty Start Date End Date Lana Arrieta MD [address] [place], [place] [id number] PCP - General Family Practice 12/28/20 Data Processing Equipment Repairer Relationship Specialty Start Date End Date Lana Arrieta MD [address] [place] [address] PCP - General Family Practice 12/28/[address] [address] Anesthesiology 01/31/22 Data Processing Equipment Repairer Relationship Specialty Start Date End Date Lana Arrieta MD [address] [place] [address] PCP - General Family Practice 12/28/[address] [address] Anesthesiology 01/31/22 Data Processing Equipment Repairer Relationship Specialty Start Date End Date Lana Arrieta MD [address] [place] [address] PCP - General Family Practice 12/28/20 [facility] [address] [address] Anesthesiology 01/31/22 Data Processing Equipment Repairer Relationship Specialty Start Date End Date Lana Arrieta MD [address] [place] [address] PCP - General Family Medicine 12/28/[address] [address] Anesthesiology 01/31/22 Data Processing Equipment Repairer Relationship Specialty Start Date End Date Lana Arrieta MD [address] [place] [address] PCP - General Family Medicine 12/28/20 Lauren Ruelas [address] [place] [address] Anesthesiology 01/31/22 Team Status: Active Member Role [...] Dr. Festus Luque MD Attending Provider Active Data Processing Equipment Repairer Relationship Specialty Start Date End Date Lana Arrieta MD [address] [place] [address] PCP - General Family Medicine 12/28/20 [facility] ansarib[facility] Orwell [address] [place], [place] [address] Anesthesiology 01/31/22 Data Processing Equipment Repairer Relationship Specialty Start Date End Date Lana Arrieta MD [address] [place] [address] PCP - General Family Medicine 12/28/20 Lauren Ruelas [address] [place] [address] Anesthesiology 01/31/22 Data Processing Equipment Repairer Relationship Specialty Start Date End Date Lana Arrieta MD [address] [place] [address] PCP - General Family Medicine 12/28/20 Lauren Ruelas [address] [place] [address] Anesthesiology 01/31/22 Data Processing Equipment Repairer Relationship Specialty Start Date End Date Lana Arrieta MD [address] [place] [address] PCP - General Family Medicine 12/28/20 Lauren Ruelas [address] [place] [id number] Anesthesiology 01/31/22 Data Processing Equipment Repairer Relationship Specialty Start Date End Date Lana Arrieta MD [address] [place] [address] PCP - General Family Medicine 12/28/20 Lauren Ruelas MD [address] [place] [address] Anesthesiology 01/31/22 Data Processing Equipment Repairer Relationship Specialty Start Date End Date Lana Arrieta MD [address] [place] [address] PCP - General Family Medicine 12/28/20 Lauren Ruelas MD [address] [place] [address] Anesthesiology 01/31/22 Team Status: Inactive Member Role [...] Dr. Dino Pena MD Emergency Provider Active Data Processing Equipment Repairer Relationship Specialty Start Date End Date Lana Arrieta MD [address] [place], [place] [address] PCP - General Family Medicine 12/28/20 Lauren Ruelas MD [address] [place] [address] Anesthesiology 01/31/22 Data Processing Equipment Repairer Relationship Specialty Start Date End Date Lana Arrieta MD [address] [place] [address] PCP - General Family Medicine 12/28/20 Lauren Ruelas MD [address] [place] [id number] Anesthesiology 01/31/22 Data Processing Equipment Repairer Relationship Specialty Start Date End Date Lana Arrieta MD [address] [place] [address] PCP - General Family Medicine 12/28/20 Lauren Ruelas MD [address] [place] [address] Anesthesiology 01/31/22 Team Status: Active Member Role [...] September 27, 2024 End: September 27, 2024 Data Processing Equipment Repairer Relationship Specialty Start Date End Date Lana Arrieta MD [address] [place] [address] PCP - General Family Medicine 12/28/20 Lauren Ruelas MD [address] [place] [address] Anesthesiology 01/31/22 Team Status: Active Member Role/Relationship [...] Member Role: Primary Care Physician Address: Address: [address] [place] [id number]- [place] Care Team Related Persons Name: [place] ARMAS Care Team Personnel Name: LANA ARRIETA MD Position: P4 Physician - Primary Care Med Service: Active Provider Member Role: Primary Care Physician Address: Address: [address] [place] [facility] [place] [address]- Care Team Related Persons Name: JOSE ARMAS [...] BE BASED ON THE PRIMARY CLINICAL RECORDS. [employer] provides no warranty or guarantee of the accuracy or completeness of information in this document.
[2025-01-27 01:50] LABS: Barbiturate Urine NEGATIVE (< 200 ng/mL); Benzodiazepine Urine NEGATIVE (< 200 ng/mL); PCP Urine NEGATIVE (< 25 ng/mL); THC Urine NEGATIVE (< 50 ng/mL)
[2025-01-27] MEDS: Pantoprazole Sodium 40 MG in 0.9% Normal Saline (100mL MB+) 100 ML 330 MG IV (02:34)
[2025-01-27] MEDS: 0.9% Normal Saline (1000mL) 1,000 ML 999 ML IV ×3 (02:55→05:19)
[2025-01-27 03:47] LABS: Vitamin B12 916 pg/mL (180-914)
[2025-01-27 04:38] LABS: Cholesterol 119 mg/dL (<=200); Low Density Lipoprotein Calc. 48 mg/dL; Triglycerides 225 mg/dL; Very Low Density Lipoprotein 45 mg/dL (5-40); cholesterol:hdl ratio screen 4.61
[2025-01-27] MEDS: 0.9% Saline Lock 10 ML Syringe IV (05:19)
[2025-01-27 06:18] LABS: Base Excess 6 mmol/L (-2 to +2); FI02 3.0; PO2 81 mmHG (75-100); SITE R Brach; SO2 95 % (95-99)
[2025-01-27] MEDS: Budesonide Respules 0.5 MG/2 ML AMPUL.NEB. INHALATION ×2 (07:04→20:01)
--- NOTE | 2025-01-27 07:14 | PCM.PN.HOSP ---
Reason for Visit Chief Complaint: AMS. Subjective Subjective Patient is a 64 old lady resident of an extended care facility who was brought to the emergency department with decreased level of sensorium Objective Data Objective Data Vital Signs: Vital Signs Temp Pulse Resp BP Pulse Ox O2 Del Method O2 Flow Rate 98.6 F 86 11 L 126/61 H 98 Nasal Cannula 2 01/27/25 07:00 01/27/25 07:05 01/27/25 07:05 01/27/25 07:00 01/27/25 07:05 01/27/25 07:05 01/27/25 07:05 Oxygen Flow Rate (L/min) 2 Oxygen Delivery Method Nasal Cannula Weight: 98.2 kg Body Mass Index (BMI) 38.3 Intake & Output: Intake and Output for Last 24 Hours 01/25/25 01/26/25 01/27/25 23:59 23:59 23:59 Intake Total 3650 / 3650 Output Total 350 / 350 1500 / 1500 Balance -350 / -350 2150 / 2150 Lab / Micro Data 01/26/25 23:38 01/26/25 23:38 Labs: Laboratory Results - last 24 hr 01/26/25 23:38: WBC 15.0 H, RBC 4.45, Hgb 13.8, Hct 41.1, MCV 92.4, MCH 31.0, MCHC 33.6, RDW Std Deviation 50.4 H, RDW Coeff of Gael 14.8 H, Plt Count 213, MPV 10.2, Immature Gran % (Auto) 1.800 H, Neut % (Auto) 68.0, Lymph % (Auto) 18.8 L, Woodson % (Auto) 9.6, Eos % (Auto) 1.4, Baso % (Auto) 0.4, Absolute Neuts (auto) 10.2 H, Absolute Lymphs (auto) 2.82, Nucleated RBC % 0, Sodium 136, Potassium 5.4 H, Chloride 98, Carbon Dioxide 28.4, Anion Gap 10, BUN 21 H, Creatinine 1.19, Estim Creat Clear Calc 55.64, Est GFR (MDRD) Non-Af 51 L, BUN/Creatinine Ratio 17.9, Glucose 84, Lactic Acid 1.5, Calcium 10.1, Total Bilirubin 0.48, Direct Bilirubin 0.22, AST 111 H, ALT 122 H, Alkaline Phosphatase 84, Ammonia 26.3, Total Protein 6.7, Albumin 3.5, Globulin 3.2, Procalcitonin 0.22 H 01/26/25 23:50: Urine Color Yellow, Urine Clarity Cloudy, Urine pH 6.0, Ur Specific Drumright 1.020, Urine Protein 100 H, Urine Glucose (UA) Normal, Urine Ketones Negative, Urine Occult Blood 150 H, Urine Nitrite Negative, Urine Bilirubin Negative, Urine Urobilinogen Normal, Ur Leukocyte Esterase 500 H, Urine RBC 0-5 SEEN, Urine WBC >100 SEEN, Ur Squamous Epith Cells 0 SEEN, Urine Bacteria 4+, Urine Mucus 0 SEEN, Urine Opiates Screen PRESUMPTIVE POSITIVE, U Buprenorphine Qual NEGATIVE, Ur Oxycodone Screen PRESUMPTIVE POSITIVE, Urine Methadone Screen NEGATIVE, Urine Fentanyl Screen NEGATIVE, Ur Barbiturates Screen NEGATIVE, Ur Phencyclidine Scrn NEGATIVE, Ur Amphetamines Screen NEGATIVE, U Benzodiazepines Scrn NEGATIVE, Urine Cocaine Screen NEGATIVE, U Cannabinoids Screen NEGATIVE 01/27/25 00:52: Ethyl Alcohol < 10.1 01/27/25 03:00: Hemoglobin A1c 8.3 H, Lactic Acid 1.4, Triglycerides 225 H, Cholesterol 119, LDL Cholesterol, Calc 48, VLDL Cholesterol 45 H, HDL Cholesterol 26 L, Cholesterol/HDL Ratio 4.61, Vitamin B12 916 H, TSH 0.525 01/27/25 06:35: POC Glucose 145 H ABG Data ABG results: ABG 01/27/25 01/27/25 01:05 06:13 Specimen Type EUNICE ART Sample Site Not entered R Brach pH 7.33 L Bicarbonate Actual 32.1 H Total CO2 34 Base Excess 6 H O2 Saturation 95 O2 % 3.0 3.0 ABG pCO2 60.4 H ABG pO2 81 Dada Test N/A VBG pH 7.35 VBG pO2 57 H VBG HCO3 31 H VBG Total CO2 32 VBG O2 Sat (Calc) 87 H VBG Base Excess 5 H POC Mix VBG pCO2 Pt Tmp 55.5 H O2 Delivery Device Cannula Cannula Vent Mode Not entered Radiography Diagnostic Testing: Radiology Impression Chest X-Ray 01/26/25 00:05 IMPRESSION: Under aerated lungs. Reading Location: [place] [address] Physical Exam Narrative GENERAL: Lethargic but arousable HEENT: Atraumatic; normocephalic EYES; Anicteric, Normal Conjunctiva NECK; supple, normal thyroid, RESPIRATORY: Diminished to auscultation, bilateral CARDIOVASCULAR: Regular S1 S2, GI: soft, normoactive bowel sounds, : No Renal angle tenderness; EXTREMITIES: Trace bipedal edema, no clubbing, MUSCULOSKELETAL: Right lower extremity immobilized NEURO: Lethargic SKIN: No Rash PSYCH; Flat affect Assessment & Plan Assessment/Plan (1) Acute cystitis without hematuria: PLAN: Plan Patient is a 64 old lady resident of an extended care facility who was brought to the emergency department with decreased level of sensorium 1. Acute toxic and metabolic encephalopathy Secondary to acute cystitis as well as accidental drug overdose 2. Acute cystitis (sepsis ruled out) ? Started on ceftriaxone, culture sent 3. Accidental drug overdose ? Patient apparently has had chronic pain in place and had received oxycodone/acetaminophen for recent Tibia-fibula fracture 4. Recent tibia-fibula fracture ? Patient right lower extremity immobilized 5. Mild hyperkalemia ? Ordered repeat BMP 6. Class II obesity with BMI of 38.3 ? Complicating care 7. Schizoaffective disorder (schizophrenia as well as bipolar disorder ? Did resume home meds 8. Diabetes mellitus type II Patient is on long-acting insulin resumed, also placed Accu-Cheks a.c. and at bedtime and covered with sliding scale insulin 9. Hypertension ? Blood pressure controlled, home medications continued with dose adjustment as needed 10. Dyslipidemia ?Patient is on statin therapy, continued at home dose 11. Systemic use of apixaban ? Indication unclear from patient's history 12. DVT prophylaxis ? Patient is on apixaban Time spent in the patient's overall evaluation,decision-making process, review of diagnostic data, adjustment of management, discussion with other providers, nursing nursing and ancillary staff involved in patient's care documentation, 35 Minutes Charges/Coding Visit Charges Inpatient E&M: 12239 PROLNG IP/OBS E/M EA 15 MIN Multi Select Codes Visit Charges Visit Charges: 50241 PROLNG IP/OBS E/M EA 15 MIN
--- NOTE | 2025-01-27 08:20 | RAD_ITS ---
EXAM: XR Chest, 1 View CLINICAL INDICATION: DYSPNEA TECHNIQUE: Frontal view of the chest. COMPARISON: No relevant prior studies available. FINDINGS: LUNGS AND PLEURAL SPACES: Unremarkable. No consolidation. No pneumothorax. HEART: Cardiomegaly without overt failure. MEDIASTINUM: Unremarkable. Normal mediastinal contour. BONES/JOINTS: Unremarkable. No acute fracture. RAD/Chest 1 View (Portable) IMPRESSION: Cardiomegaly without overt failure. Reading [facility]
[2025-01-27 08:50] LABS: Hematocrit 36.6 % (37-47); Hemoglobin 11.9 g/dL (12.0-15.0); Mean Corp Hgb Conc 32.5 g/dL (32-36); Mean Corpuscular Volume 92.9 fL (81-99); Mean Platelet Vol. 10.0 fl (6.2-12.0); Platelet Count 172 K/mm3 (150-450); RBC Distribution Width CV 14.6 % (11.6-14.6); RBC Distribution Width SD 49.6 fl (35.1-43.9); Red Blood Count 3.94 M/mm3 (4.2-5.4); White Blood Count 11.0 K/mm3 (4.4-11.0)
[2025-01-27 09:36] LABS: AST(SGOT) 116 U/L (<=31); Alanine Aminotransfer ALT/SGPT 100 U/L (<=34); Albumin, Serum 3.0 g/dL (3.4-4.8); Alkaline Phosphatase 70 U/L (35-104); Anion Gap 7 (5-15); BUN 16 mg/dL (4-19); BUN/Creat Ratio 17.0 RATIO (10-20); Calcium,Total 8.3 mg/dL (7.6-11.0); Carbon Dioxide 27.3 mmol/L (21.0-32.0); Chloride 105 mmol/L (98-108); Estimated Creatinine Clearance 69.88 ml/min (50-250); Globulin 2.6 g/dL (2.2-4.2); Glucose 187 mg/dL (70-99); Magnesium 2.0 mg/dL (1.5-2.2); Potassium 5.3 mmol/L (3.3-5.1)
[2025-01-27] MEDS: Glycerin/Hypromellose/PEG400 15 ml Bottle 1 DRP EACH EYE ×2 (11:10→21:45)
--- NOTE | 2025-01-27 12:03 | CASEMGMT ---
Noted that the pt is from [facility]. RN CM to the pt room at this time to discuss DC planning. Pt states that she plans to and prefers to return to the SNF @ the time of DC and denies wanting to review a list of other SNFs at this time. DPA notified and plans to send updates to the SNF.
--- NOTE | 2025-01-27 15:26 | CASEMGMT ---
Pt's RN notifies this RN CM that the pt's sister, Sintia, is at bedside and that her and the pt would like to speak with CM. This RN CM to the pt room at this time. Pt and Sintia now state that the pt does not want to return to [facility]. Pt and Sintia report that the pt was recently given an Rx for Percocet, on top of her pain pump, from the recent ER visit before returning to the SNF. Pt states that she was given/taking too much of the Percocet with her pain pump causing the current admission. Dr. Banegas then walks into the pt's room with the pt's RN and consoled the pt and the pt's sister. Dr. Banegas answered and addressed all of the pt and pt's sister's questions and concerns. Pt and pt sister decline further needs regarding the matter. Moving forward, Sintia states that their mother is a pt at [facility] and that she lives within 5 minutes of the facility. Pt states herself that she prefers to go to this SNF at the time of DC. DPA notified and plans to initiate the referral process as long as the SNF is in-network. At this time, the pt and the pt's sister decline wanting to review a list of other SNF options as this is their FOC for the time being. Sintia also inquires about POA paperwork. Pt states that she would like to make her sister the HCPOA. SW notified and plans to follow up with the pt. Pt and Sintia deny further questions or concerns at this time. Taisha ZAPIEN RN CM
--- NOTE | 2025-01-27 15:32 | CASEMGMT ---
Discharge Planning A list of?SNF providers including quality and resource use data and consistent with the patient's preferred geographic region, medical needs, and insurance network was created in [employer] Guide.? This list was provided to the RN DAY. Lori Gloria, Discharge Planning Asst.
--- NOTE | 2025-01-27 15:33 | CASEMGMT ---
Discharge Planning Referral sent to [facility]. Lori Gloria DC Planning Asst.
[2025-01-27] MEDS: Insulin Glargine-YFGN 100 UNIT/ML Pen 20 UNIT SC (18:36)
[2025-01-27 20:23] LABS: FOLATES,SERUM (FOLIC ACID) 10.90 ng/mL (4.60-34.80)
[2025-01-28] VITALS (9 sets, daily range): BP systolic 132–157; BP diastolic 55–73; PULSE 80–114; RESP 16–20; TEMP 36.7–38.4; O2SAT 92–98; BMI 38.2
[2025-01-28] MEDS: 0.9% Saline Lock 10 ML Syringe IV (00:22)
--- NOTE | 2025-01-28 00:47 | NURSING ---
This RN unfastened brace to observe RLE, upon assessment finding DRISS wrap to RLE from above ankle to below knee. Removed DRISS wrap. Large fluid filled blister observed below Right knee measuring 13 x 6 cm, fluid filled. Pt unaware of how or when the blister occured. Notified MD of findings. Order received for CT of RLE without contrast to r/o abscess. Applied ABD gently to area and refastened brace. Wound consult also placed.
[2025-01-28 05:58] LABS: Hematocrit 32.9 % (37-47); Hemoglobin 10.8 g/dL (12.0-15.0); Immature Granulocytes Count 0.090 X10^3/uL (0.0-0.0); Mean Corp Hgb Conc 32.8 g/dL (32-36); Mean Corpuscular Volume 91.6 fL (81-99); Mean Platelet Vol. 10.0 fl (6.2-12.0); NRBC Flagged by Analyzer 0 % (0-5); Platelet Count 167 K/mm3 (150-450); RBC Distribution Width CV 14.6 % (11.6-14.6); RBC Distribution Width SD 49.1 fl (35.1-43.9); Red Blood Count 3.59 M/mm3 (4.2-5.4); White Blood Count 9.0 K/mm3 (4.4-11.0)
[2025-01-28 06:29] LABS: Anion Gap 9 (5-15); BUN 17 mg/dL (4-19); BUN/Creat Ratio 19.8 RATIO (10-20); Calcium,Total 8.6 mg/dL (7.6-11.0); Carbon Dioxide 26.3 mmol/L (21.0-32.0); Chloride 99 mmol/L (98-108); Estimated Creatinine Clearance 75.55 ml/min (50-250); Glucose 277 mg/dL (70-99); Potassium 4.9 mmol/L (3.3-5.1)
[2025-01-28] MEDS: Budesonide Respules 0.5 MG/2 ML AMPUL.NEB. INHALATION ×2 (07:32→19:30)
--- NOTE | 2025-01-28 08:52 | CASEMGMT ---
Discharge Planning [facility] has accepted pt. SW updated. SL also updated with request for Passr records. Lori Gloria DC Planning Asst.
--- NOTE | 2025-01-28 09:25 | PN.HOSP_ITS ---
Reason for Visit Chief Complaint: AMS. Subjective Subjective Patient urine cultures so far positive for ESBL E. coli patient started on meropenem consult placed to ID Objective Data Objective Data Vital Signs: Vital Signs Temp Pulse Resp BP Pulse Ox O2 Del Method O2 Flow Rate 100.0 F H 96 18 145/73 H 94 Nasal Cannula 2 01/28/25 06:42 01/28/25 07:34 01/28/25 07:34 01/28/25 06:42 01/28/25 06:42 01/28/25 07:34 01/28/25 07:34 Oxygen Flow Rate (L/min) 2 Oxygen Delivery Method Nasal Cannula Weight: 98 kg Body Mass Index (BMI) 38.2 Intake & Output: Intake and Output for Last 24 Hours 01/26/25 01/27/25 01/28/25 23:59 23:59 23:59 Intake Total 3940 / 3940 750 / 750 Output Total 350 / 350 3150 / 3150 275 / 275 Balance -350 / -350 790 / 790 475 / 475 Lab / Micro Data 01/28/25 05:34 01/28/25 05:34 Labs: Laboratory Results - last 24 hr 01/27/25 08:40: Sodium 139, Potassium 5.3 H, Chloride 105, Carbon Dioxide 27.3, Anion Gap 7, BUN 16, Creatinine 0.92, Estim Creat Clear Calc 69.88, Est GFR (MDRD) Non-Af 70, BUN/Creatinine Ratio 17.0, Glucose 187 H, Calcium 8.3, Phosphorus 3.3, Magnesium 2.0, Total Bilirubin 0.37, AST 116 H, ALT 100 H, Alkaline Phosphatase 70, Total Protein 5.6 L, Albumin 3.0 L, Globulin 2.6, Albumin/Globulin Ratio 1.1 01/27/25 17:27: POC Glucose 297 H 01/27/25 19:02: Serum Folate 10.90 01/27/25 21:24: POC Glucose 283 H 01/28/25 05:34: WBC 9.0, RBC 3.59 L, Hgb 10.8 L, Hct 32.9 L, MCV 91.6, MCH 30.1, MCHC 32.8, RDW Std Deviation 49.1 H, RDW Coeff of Gael 14.6, Plt Count 167, MPV 10.0, Immature Gran % (Auto) 1.000 H, Neut % (Auto) 62.8, Lymph % (Auto) 22.7, M rylee % (Auto) 12.1 H, Eos % (Auto) 1.0, Baso % (Auto) 0.4, Absolute Neuts (auto) 5.7, Absolute Lymphs (auto) 2.05, Nucleated RBC % 0, Sodium 134, Potassium 4.9, Chloride 99, Carbon Dioxide 26.3, Anion Gap 9, BUN 17, Creatinine 0.85, Estim Creat Clear Calc 75.55, Est GFR (MDRD) Non-Af 77, BUN/Creatinine Ratio 19.8, G lucose 277 H, Calcium 8.6 01/28/25 06:12: POC Glucose 257 H Micro: Microbiology 01/26/25 23:50 Urine Catheter - Pozo Urine Culture - Preliminary ESBL Escherichia coli Radiography Diagnostic Testing: Radiology Impression Lower Extremity CT 01/28/25 23:43 IMPRESSION: Recent upper aspect of right lower leg acute injury. Lower leg swelling and blistering without discrete drainable abscess. Reading Location: [place] [address] Physical Exam Narrative GENERAL: Awake and cooperative HEENT: Atraumatic; normocephalic EYES; Anicteric, Normal Conjunctiva NECK; supple, normal thyroid, RESPIRATORY: Diminished to auscultation, bilateral CARDIOVASCULAR: Regular S1 S2, GI: soft, normoactive bowel sounds, : No Renal angle tenderness; EXTREMITIES: Trace bipedal edema, no clubbing, MUSCULOSKELETAL: Right lower extremity immobilized NEURO: Awake and cooperative SKIN: No Rash PSYCH; Flat affect Assessment & Plan Assessment/Plan (1) Acute cystitis without hematuria: PLAN: Plan Patient is a 64 old lady resident of an extended care facility who was brought to the emergency department with decreased level of sensorium 1. Acute toxic and metabolic encephalopathy Secondary to acute cystitis as well as accidental drug overdose ? 01/28/2025; patient level of sensorium improving. 2. Acute cystitis (sepsis ruled out) ? Started on ceftriaxone, culture sent ? 01/28/2025;Patient urine cultures so far positive for ESBL E. coli patient started on meropenem consult placed to ID 3. Accidental drug overdose ? Patient apparently has had chronic pain in place and had received oxycodone/acetaminophen for recent Tibia-fibula fracture 4. Recent tibia-fibula fracture ? Patient right lower extremity immobilized 5. Mild hyperkalemia ? Ordered repeat BMP ? 01/28/2025; patient potassium down to 4.9 repeat BMP ordered for a.m. 6. Class II obesity with BMI of 38.3 ? Complicating care 7. Schizoaffective disorder (schizophrenia as well as bipolar disorder ? Did resume home meds 8. Diabetes mellitus type II Patient is on long-acting insulin resumed, also placed Accu-Cheks a.c. and at bedtime and covered with sliding scale insulin ? 01/28/2025; patient blood glucose control not optimal further adjustment made to patient insulin regimen 9. Hypertension ? Blood pressure controlled, home medications continued with dose adjustment as needed 10. Dyslipidemia ?Patient is on statin therapy, continued at home dose 11. Systemic use of apixaban ? Indication unclear from patient's history 12. DVT prophylaxis ? Patient is on apixaban Time spent in the patient's overall evaluation,decision-making process, review of diagnostic data, adjustment of management, discussion with other providers, nursing nursing and ancillary staff involved in patient's care documentation, 50 Minutes Charges/Coding Visit Charges Inpatient E&M: 39481 [facility] L[facility]
[2025-01-28] MEDS: Glycerin/Hypromellose/PEG400 15 ml Bottle 1 DRP EACH EYE ×2 (11:47→21:57)
[2025-01-28] MEDS: Meropenem 1 GM in 0.9% Normal Saline (100mL MB+) 100 ML IV ×3 (11:47→21:58)
[2025-01-28] MEDS: Pantoprazole Sodium 40 MG in 0.9% Normal Saline (100mL MB+) 100 ML 330 MG IV (12:24)
--- NOTE | 2025-01-28 13:38 | PCM.CONS.GEN ---
Assessment & Plan Assessment/Plan (1) UTI (urinary tract infection): PLAN: ESBL ecoli uti, on meropenem, improving will follow, thank you (2) Fracture of tibia and fibula: (3) Acute metabolic encephalopathy: HPI Consult Data Date of Consult: 01/28/25 HPI Narrative Reason for Consultation: uti HPI Narrative: ELSA MERIDA, is a 64 F who presented 01/27 from [facility] with acute onset fever, chills, confusino, dysuria, and blister over R chopra. Admitted on meropenem after initial ceftriaxone. Feeling better. No abd pain. Full ROS performed and neg except as noted above. [facility] Medical History History of ESBL E. coli infection History of pressure injury of skin Gastric reflux History of pain when walking Leg cramps Lives in [facility] Hx of fracture of hip Wears glasses Wears dentures Post-menopausal Depression Alcohol use Substance abuse Open wound Uses wheelchair Arthritis High cholesterol Restless legs Back pain Smoker Asthma Shortness of breath on exertion History of edema Tobacco abuse Insulin dependent diabetes mellitus 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 GERD (gastroesophageal reflux disease) Anxiety Schizophrenia Hyperlipidemia Insomnia Neuralgia and neuritis Spondylosis Mild asthma Cerebral vascular disease Hypertension Home Medications ?Medication ?Instructions ?Recorded ?Last Taken ?Type ondansetron HCl 4 mg tablet 4 mg PO Q6H PRN PRN Nausea 03/08/19 Unknown History prazosin 1 mg capsule 1 mg PO QHS 03/08/19 03/07/19 20:00 History albuterol sulfate 2.5 mg/3 mL 2.5 mg inhalation Q4H PRN SOB 07/29/21 Unknown History (0.083 %) solution for nebulization apixaban 5 mg tablet (Eliquis) 5 mg PO BID 07/29/21 01/17/25 History lurasidone 80 mg tablet (Latuda) 80 mg PO DAILY 07/29/21 Unknown History naloxegol 25 mg tablet (Movantik) 25 mg PO DAILY 07/29/21 Unknown History acetaminophen 325 mg tablet 650 mg PO Q6H PRN PRN fever or pain 12/18/22 Unknown History benzonatate 100 mg capsule 100 mg PO Q8H PRN cough 12/18/22 Unknown History bisacodyl 5 mg tablet,delayed 5 mg PO Q8H PRN PRN constipation 12/18/22 Unknown History release (Dulcolax (bisacodyl)) cholecalciferol (vitamin D3) 125 125 mcg PO DAILY 12/18/22 Unknown History mcg (5,000 unit) capsule epinephrine 0.3 mg/0.3 mL 0.3 mg IM Q5-15M PRN anaphylaxis 12/18/22 Unknown History injection, auto-injector (EpiPen) flash glucose sensor (FreeStyle 12/18/22 Unknown History Cynthia 2 Sensor kit) fluticasone fur. 200 mcg-umeclid 1 inh inhalation DAILY 12/18/22 Unknown History 62.5 mcg-vilant 25 mcg inhalat.powder (Trelegy Ellipta) guaifenesin 100 mg/5 mL oral liquid 200 mg PO Q4H PRN cough 12/18/22 Unknown History ipratropium 0.5 mg-albuterol 3 mg 3 ml inhalation BID PRN shortness 12/18/22 Unknown History (2.5 mg base)/3 mL nebulization of breath soln ipratropium 20 mcg-albuterol 100 1 puff inhalation Q6H PRN 12/18/22 Unknown History mcg/actuation mist for inhalation shortness of breath or wheezing (Combivent Respimat) ipratropium bromide 21 mcg (0.03 2 spray intranasal BID 12/18/22 Unknown History %) nasal spray lisinopril 2.5 mg tablet 2.5 mg PO DAILY 12/18/22 01/20/25 History loratadine 10 mg tablet (Claritin) 10 mg PO DAILY 12/18/22 Unknown History montelukast 10 mg tablet 10 mg PO DAILY 12/18/22 Unknown History polyethylene glycol 3350 17 17 g PO DAILY PRN constipation 12/18/22 Unknown History gram/dose oral powder (Miralax) duloxetine 60 mg capsule,delayed 60 mg PO BID 01/16/23 Unknown History release (Cymbalta) pregabalin 100 mg capsule 100 mg PO BID 01/16/23 Unknown History Lactobacillus rhamnosus GG 10 1 cap PO BID 11/27/23 Unknown History billion cell capsule (Culturelle) insulin lispro 100 unit/mL 1 sliding scale dose subcut TID 11/27/23 Unknown History subcutaneous pen (Humalog KwikPen (U-100) Insulin) loperamide 2 mg capsule 4 mg PO BID PRN loose stool 11/27/23 Unknown History (Anti-Diarrheal (loperamide)) carboxymethylcellulose sodium 0.5 1 drp EACH EYE BID 01/30/24 Unknown History % eye drops (Refresh Tears) cyclosporine 0.05 % eye drops in a 1 drp EACH EYE Q12H 01/30/24 Unknown History dropperette (Restasis) atenolol 50 mg tablet 50 mg PO QDAY 11/20/24 01/20/25 History clonazepam 0.5 mg tablet 0.5 mg PO 1500 PRN anxiety 11/20/24 Unknown History insulin glargine U-300 conc 300 100 unit subcut QAM 11/20/24 Unknown History unit/mL (1.5 mL) subcutaneous pen (Toujeo SoloStar U-300 Insulin) insulin glargine U-300 conc 300 90 unit subcut QHS 11/20/24 Unknown History unit/mL (3 mL) subcutaneous pen (Toujeo Max U-300 SoloStar) insulin lispro 100 unit/mL 50 unit subcut DAILY 11/20/24 Unknown History subcutaneous pen (Humalog KwikPen (U-100) Insulin) insulin lispro 100 unit/mL 54 unit subcut DINNER 11/20/24 Unknown History subcutaneous pen (Humalog KwikPen (U-100) Insulin) magnesium hydroxide 400 mg/5 mL 15 ml PO BID PRN constipation 11/20/24 Unknown History oral suspension (Milk of Magnesia) tirzepatide 7.5 mg/0.5 mL 7.5 mg subcut FR 11/20/24 01/08/25 History subcutaneous pen injector (Mounjaro) atorvastatin 40 mg tablet 40 mg PO DAILY 01/20/25 Unknown History cranberry 500 mg capsule 500 mg PO DAILY 01/20/25 Unknown History famotidine 40 mg tablet 40 mg PO DAILY 01/20/25 Unknown History olanzapine 15 mg tablet 15 mg PO QHS 01/20/25 Unknown History oxycodone-acetaminophen 5 mg-325 1 tab PO Q6H PRN pain 5 days #20 01/25/25 Unknown Rx mg tablet (Percocet) tabs omeprazole 40 mg capsule,delayed 40 mg PO BID 01/26/25 Unknown History release oxybutynin chloride 5 mg tablet 5 mg PO DAILY 01/26/25 Unknown History Allergy/AdvReac Type Severity Reaction Status Date / Time apricot Allergy Unknown PT UNSURE Verified 01/26/25 23:17 OF REACTION BCG (Bacillus Allergy Unknown Other Verified 01/26/25 23:17 Calmette-Ozhra) vacc bee venom protein (honey Allergy Unknown Other Verified 01/26/25 23:17 bee) (bee sting) corn Allergy Unknown Other Verified 01/26/25 23:17 Milk Containing Products Allergy Unknown Other Verified 01/26/25 23:17 (Dairy) peas Allergy Unknown Other Verified 01/26/25 23:17 tomato Allergy Unknown Other Verified 01/26/25 23:17 Iodinated Contrast Media Allergy Hives Verified 01/26/25 23:17 (Iodinated Contrast Media - IV Dye) amoxicillin trihydrate (From AdvReac Itching Verified 01/26/25 23:17 Augmentin) hydrocodone (From Vicodin) AdvReac Unknown Verified 01/26/25 23:17 potassium clavulanate (From AdvReac Itching Verified 01/26/25 23:17 Augmentin) shellfish derived AdvReac Itching Verified 01/26/25 23:17 Surgical History History of surgery History of History of tubal ligation History of hysterectomy History of cholecystectomy History of appendectomy S/P right rotator cuff repair Social History Smoking Status: Former smoker Physical Exam Const alert, oriented x3 and no apparent distress General Appearance: cooperative HEENT normocephalic and head/scalp atraumatic Eyes PERRL and EOMs intact bilaterally Neck supple and No nodes Resp normal air movement and clear to auscultation bilaterally Cardio regular rate and regular rhythm GI soft to palpation, non-tender and non-distended Extremity General Extremity: edema Skin Skin Narrative: Large bulla on R chopra Neuro CN's II-XII intact bilaterally Lab / Micro Data Attestation: I reviewed the patient's lab results. 01/28/25 05:34 01/28/25 05:34 Labs: Laboratory Results - last 24 hr 01/27/25 17:27: POC Glucose 297 H 01/27/25 19:02: Serum Folate 10.90 01/27/25 21:24: POC Glucose 283 H 01/28/25 05:34: WBC 9.0, RBC 3.59 L, Hgb 10.8 L, Hct 32.9 L, MCV 91.6, MCH 30.1, MCHC 32.8, RDW Std Deviation 49.1 H, RDW Coeff of Gael 14.6, Plt Count 167, MPV 10.0, Immature Gran % (Auto) 1.000 H, Neut % (Auto) 62.8, Lymph % (Auto) 22.7, [place] % (Auto) 12.1 H, Eos % (Auto) 1.0, Baso % (Auto) 0.4, Absolute Neuts (auto) 5.7, Absolute Lymphs (auto) 2.05, Nucleated RBC % 0, Sodium 134, Potassium 4.9, Chloride 99, Carbon Dioxide 26.3, Anion Gap 9, BUN 17, Creatinine 0.85, Estim Creat Clear Calc 75.55, Est GFR (MDRD) Non-Af 77, BUN/Creatinine Ratio 19.8, Glucose 277 H, Calcium 8.6 01/28/25 06:12: POC Glucose 257 H Micro: Microbiology 01/26/25 23:50 Urine Catheter - Pozo Urine Culture - Preliminary ESBL Escherichia coli Imaging Radiology Impression Lower Extremity CT 01/28/25 23:43 IMPRESSION: Recent upper aspect of right lower leg acute injury. Lower leg swelling and blistering without discrete drainable abscess. Reading Location: [place] [address]
--- NOTE | 2025-01-28 14:47 | CASEMGMT ---
Discharge Planning PT/OT evdior and RR dated 09/19/24 sent to [facility]. Per Sydnee @ [facility], she will work with on obtaining accurate passr records. Lori Gloria DC Planning Asst.
[2025-01-28] MEDS: Insulin Glargine-YFGN 100 UNIT/ML Pen 20 UNIT SC (21:58)
--- NOTE | 2025-01-28 23:43 | CT_ITS ---
PROCEDURE: EXTREMITY LOWER WITHOUT CONTRA 01/28/2025 REASON FOR EXAM: R/O ABSCESS TECHNIQUE: EXTREMITY LOWER WITHOUT CONTRA Coronal and Sagittal reconstruction series were provided. One or more dose reduction techniques were used (e.g., Automated exposure control, adjustment of the mA and/or kV according to patient size, use of iterative reconstruction technique). RADIATION DOSE SUMMARY: CTDlvol: 15 mGy DLP: 864 mGycm COMPARISON: Radiograph 01/25/2025 FINDINGS: Right-sided lower leg subcutaneous edema and skin thickening. Anteromedial upper aspect of the lower leg skin blistering, series 2, image 71. Small knee joint effusion. Acute, nondisplaced obliquely vertical proximal tibial metaphyseal fracture. Acute, nondisplaced fibular neck fracture, extension in the fibular head. No dislocation. CT/Extremity Lower without Contra IMPRESSION: Recent upper aspect of right lower leg acute injury. Lower leg swelling and blistering without discrete drainable abscess. Reading Location: [place] [address]
[2025-01-29] VITALS (9 sets, daily range): BP systolic 121–162; BP diastolic 59–75; PULSE 83–101; RESP 16–20; TEMP 37.2–37.4; O2SAT 94–98; BMI 38.2
[2025-01-29 06:25] LABS: Hematocrit 32.7 % (37-47); Hemoglobin 11.2 g/dL (12.0-15.0); Immature Granulocytes Count 0.170 X10^3/uL (0.0-0.0); Mean Corp Hgb Conc 34.3 g/dL (32-36); Mean Corpuscular Volume 88.6 fL (81-99); Mean Platelet Vol. 9.8 fl (6.2-12.0); NRBC Flagged by Analyzer 0 % (0-5); Platelet Count 190 K/mm3 (150-450); RBC Distribution Width CV 14.2 % (11.6-14.6); RBC Distribution Width SD 45.1 fl (35.1-43.9); Red Blood Count 3.69 M/mm3 (4.2-5.4); White Blood Count 9.8 K/mm3 (4.4-11.0)
[2025-01-29 06:50] LABS: Anion Gap 10 (5-15); BUN 10 mg/dL (4-19); BUN/Creat Ratio 14.1 RATIO (10-20); Calcium,Total 8.9 mg/dL (7.6-11.0); Carbon Dioxide 24.6 mmol/L (21.0-32.0); Chloride 102 mmol/L (98-108); Estimated Creatinine Clearance 91.63 ml/min (50-250); Glucose 278 mg/dL (70-99); Potassium 4.3 mmol/L (3.3-5.1)
[2025-01-29] MEDS: Meropenem 1 GM in 0.9% Normal Saline (100mL MB+) 100 ML IV ×3 (06:56→21:05)
[2025-01-29] MEDS: Budesonide Respules 0.5 MG/2 ML AMPUL.NEB. INHALATION ×2 (07:13→19:34)
[2025-01-29] MEDS: Glycerin/Hypromellose/PEG400 15 ml Bottle 1 DRP EACH EYE ×2 (08:21→21:05)
[2025-01-29] MEDS: Pantoprazole Sodium 40 MG in 0.9% Normal Saline (100mL MB+) 100 ML 330 MG IV (10:19)
--- NOTE | 2025-01-29 10:51 | CASEMGMT ---
Discharge Planning Call rec'd from [facility]. They are submitting for a skilled loc. Pt can admit before that is rec'd if medically ready. ELENA BERNSTEIN updated. Lori Gloria DC Planning Asst.
--- NOTE | 2025-01-29 11:03 | PN.HOSP_ITS ---
Reason for Visit Chief Complaint: AMS. Subjective Subjective Patient was seen in consultation by infectious disease. Dr. Robbins did agree with continuation of meropenem. Patient has low-grade fever. Will continue to monitor until patient becomes afebrile prior to patient being discharged to a retirement facility Objective Data Objective Data Vital Signs: Vital Signs Temp Pulse Resp BP Pulse Ox O2 Del Method O2 Flow Rate 98.0 F 101 H 19 H 132/65 H 96 Nasal Cannula 2 01/28/25 22:00 01/29/25 07:53 01/29/25 07:53 01/28/25 22:00 01/29/25 07:52 01/29/25 07:52 01/29/25 07:52 Oxygen Flow Rate (L/min) 2 Oxygen Delivery Method Nasal Cannula Weight: 97.8 kg Body Mass Index (BMI) 38.2 Intake & Output: Intake and Output for Last 24 Hours 01/27/25 01/28/25 01/29/25 23:59 23:59 23:59 Intake Total 3940 / 3940 / 200 / 200 Output Total 3150 / 3150 2115 / 2415 300 / 300 Balance 790 / 790 -105.00 / -405.00 -100 / -100 Lab / Micro Data 01/29/25 06:10 01/29/25 06:10 Labs: Laboratory Results - last 24 hr 01/28/25 11:58: POC Glucose 354 H 01/28/25 17:06: POC Glucose 353 H 01/28/25 21:52: POC Glucose 280 H 01/29/25 06:10: WBC 9.8, RBC 3.69 L, Hgb 11.2 L, Hct 32.7 L, MCV 88.6, MCH 30.4, MCHC 34.3, RDW Std Deviation 45.1 H, RDW Coeff of Gael 14.2, Plt Count 190, MPV 9.8, Immature Gran % (Auto) 1.700 H, Neut % (Auto) 67.7, Lymph % (Auto) 17.7 L, [place] % (Auto) 11.5 H, Eos % (Auto) 0.8, Baso % (Auto) 0.6, Absolute Neuts (auto) 6.6, Absolute Lymphs (auto) 1.73, Nucleated RBC % 0, Sodium 136, Potassium 4.3, Chloride 102, Carbon Dioxide 24.6, Anion Gap 10, BUN 10, Creatinine 0.70, Estim Creat Clear Calc 91.63, Est GFR (MDRD) Non-Af 96, BUN/Creatinine Ratio 14.1, G lucose 278 H, Calcium 8.9 01/29/25 08:08: POC Glucose 257 H Micro: Microbiology 01/26/25 23:50 Urine Catheter - Pozo Urine Culture - Final ESBL Escherichia coli 01/26/25 23:38 Blood Culture (Wb) - Anticubital Left Blood Culture - Preliminary No growth in 48 hours. 01/27/25 00:33 Blood Culture (Wb) - Anticubital Left Blood Culture - Preliminary No growth in 48 hours. Physical Exam Narrative GENERAL: Awake and cooperative HEENT: Atraumatic; normocephalic EYES; Anicteric, Normal Conjunctiva NECK; supple, normal thyroid, RESPIRATORY: Diminished to auscultation, bilateral CARDIOVASCULAR: Regular S1 S2, GI: soft, normoactive bowel sounds, : No Renal angle tenderness; EXTREMITIES: Trace bipedal edema, no clubbing, MUSCULOSKELETAL: Right lower with blisters on anterior tibia, with significant swelling NEURO: Awake and cooperative SKIN: No Rash PSYCH; Flat affect Assessment & Plan Assessment/Plan (1) Acute cystitis without hematuria: PLAN: Plan Patient is a 64 old lady resident of an extended care facility who was brought to the emergency department with decreased level of sensorium 1. Acute toxic and metabolic encephalopathy Secondary to acute cystitis as well as accidental drug overdose ? 01/28/2025; patient level of sensorium improving. 2. Acute cystitis (sepsis ruled out) ? Started on ceftriaxone, culture sent ? 01/28/2025;Patient urine cultures so far positive for ESBL E. coli patient started on meropenem consult placed to ID - 01/29/2025;Patient was seen in consultation by infectious disease. Dr. Robbins did agree with continuation of meropenem. Patient has low-grade fever. Will continue to monitor until patient becomes afebrile prior to patient being discharged to a retirement facility 3. Accidental drug overdose ? Patient apparently has had chronic pain in place and had received oxycodone/acetaminophen for recent Tibia-fibula fracture 4. Recent tibia-fibula fracture ? Patient right lower extremity immobilized. ? 01/29/2025; patient has significant swelling involving the right lower extremity ordered venous duplex to rule out DVT. Consult was also placed to Dr. Chow whom patient was scheduled to to see as outpatient. 5. Mild hyperkalemia ? Ordered repeat BMP ? 01/28/2025; patient potassium down to 4.9 repeat BMP ordered for a.m. 6. Class II obesity with BMI of 38.3 ? Complicating care 7. Schizoaffective disorder (schizophrenia as well as bipolar disorder ? Did resume home meds 8. Diabetes mellitus type II Patient is on long-acting insulin resumed, also placed Accu-Cheks a.c. and at bedtime and covered with sliding scale insulin ? 01/28/2025; patient blood glucose control not optimal further adjustment made to patient insulin regimen 9. Hypertension ? Blood pressure controlled, home medications continued with dose adjustment as needed 10. Dyslipidemia ?Patient is on statin therapy, continued at home dose 11. Systemic use of apixaban ? Indication unclear from patient's history 12. DVT prophylaxis ? Patient is on apixaban Time spent in the patient's overall evaluation,decision-making process, review of diagnostic data, adjustment of management, discussion with other patients sister, providers, nursing nursing and ancillary staff involved in patient's care documentation, 50 Minutes Charges/Coding Visit Charges Inpatient E&M: 96993 [facility] Hosp L3
--- NOTE | 2025-01-29 11:14 | VDLE_ITS ---
Reason For Study Reason For Study: RLE Swelling RIGHT GSV is normal. CFV is compressible, spontaneous, phasic, competent and demonstrates normal augmentation. FV is compressible, spontaneous, phasic, competent and demonstrates normal augmentation. POP V is compressible, spontaneous, phasic, competent and demonstrates normal augmentation. T/P Trunk is compressible. PTV is compressible. RT PerV is compressible. Procedure This is a venous duplex using B-mode, color flow and spectral Doppler. Exam performed portable in patient room. Limited views were obtained due to patient positioning and immobility. A preliminary report was called and/or faxed to PCU geophysical laboratory director Jody. VL/Venous Duplex US, Unilateral Interpretation Summary Deep veins of the right lower extremity are patent and compressible segmentally . There is no evidence of right lower extremity deep vein thrombosis. Valvular competence appears intact within the p roximal deep venous system on the right . The right great saphenous vein appears patent and compressible segmentally. Ordering Physician: Suresh Banegas Referring Physician: Taya Wong Performed By: Eric Olivia RVT
--- NOTE | 2025-01-29 14:04 | RAD_ITS ---
EXAM: XR Chest, 1 View CLINICAL INDICATION: PICC LINE PLACEMENT TECHNIQUE: Frontal view of the chest. COMPARISON: No relevant prior studies available. FINDINGS: LUNGS AND PLEURAL SPACES: Unremarkable. No consolidation. No pneumothorax. HEART: Unremarkable. No cardiomegaly. MEDIASTINUM: Unremarkable. Normal mediastinal contour. BONES/JOINTS: Unremarkable. No acute fracture. TUBES, LINES AND DEVICES: Right peripherally inserted central catheter (PICC) tip in the superior vena cava. RAD/Chest 1 View (Portable) IMPRESSION: No acute cardiopulmonary process. Reading Location[facility]
--- NOTE | 2025-01-29 14:29 | CASEMGMT ---
Patient to discharge to [facility] when medically ready. Green sheet on chart with transport form.
--- NOTE | 2025-01-29 15:34 | PCM.PN.ID ---
Physical Exam Narrative Sleeping today, low grade temp overnight Const no apparent distress Resp normal air movement and clear to auscultation bilaterally Cardio regular rate and regular rhythm GI soft to palpation, non-tender and non-distended Extremity General Extremity: edema Skin Skin Narrative: RLE blister ID ID: Route of nutrition/ use of supplements: [] Nutritional Intake: [] IV Site: [] Pozo Catheter: [] Assessment & Plan Assessment/Plan (1) UTI (urinary tract infection): PLAN: ESBL ecoli uti, on meropenem, improving. Day 2 of meropenem. Plan on 3-5 days total of meropenem depending on clinical progress. Temps improved. will follow, d/w home health care case manager (2) Fracture of tibia and fibula: (3) Acute metabolic encephalopathy:
--- NOTE | 2025-01-29 15:48 | CASEMGMT ---
Social Work SW met with pt and assisted in completing living will and HCPOA naming her sister Sintia. Copy placed in pt chart and original given to pt. GEOVANNI Ortiz
[2025-01-29] MEDS: Insulin Glargine-YFGN 100 UNIT/ML Pen 20 UNIT SC (21:06)
[2025-01-30 05:23] VITALS: BP 147/64; PULSE 88; RESP 14; TEMP 36.4; O2SAT 96
[2025-01-30 06:00] VITALS: BMI 38.5
[2025-01-30] MEDS: Meropenem 1 GM in 0.9% Normal Saline (100mL MB+) 100 ML IV ×3 (06:01→21:24)
[2025-01-30 07:14] VITALS: PULSE 94; RESP 18; O2SAT 94
[2025-01-30 07:32] LABS: Anion Gap 12 (5-15); BUN 14 mg/dL (4-19); BUN/Creat Ratio 22.8 RATIO (10-20); Calcium,Total 8.8 mg/dL (7.6-11.0); Carbon Dioxide 22.2 mmol/L (21.0-32.0); Chloride 99 mmol/L (98-108); Estimated Creatinine Clearance 105.63 ml/min (50-250); Glucose 345 mg/dL (70-99); Hematocrit 31.5 % (37-47); Hemoglobin 10.7 g/dL (12.0-15.0); Immature Granulocytes Count 0.180 X10^3/uL (0.0-0.0); Mean Corp Hgb Conc 34.0 g/dL (32-36); Mean Corpuscular Volume 89.7 fL (81-99); Mean Platelet Vol. 10.0 fl (6.2-12.0); NRBC Flagged by Analyzer 0 % (0-5); Platelet Count 201 K/mm3 (150-450); Potassium 4.7 mmol/L (3.3-5.1); RBC Distribution Width CV 14.4 % (11.6-14.6); RBC Distribution Width SD 46.5 fl (35.1-43.9); Red Blood Count 3.51 M/mm3 (4.2-5.4); White Blood Count 9.7 K/mm3 (4.4-11.0)
[2025-01-30] MEDS: Glycerin/Hypromellose/PEG400 15 ml Bottle 1 DRP EACH EYE ×2 (10:50→21:10)
[2025-01-30 11:14] VITALS: BP 146/65; PULSE 95; RESP 18; TEMP 37.1; O2SAT 95
--- NOTE | 2025-01-30 12:16 | PN.HOSP_ITS ---
Reason for Visit Chief Complaint: AMS. Subjective Subjective Venous duplex obtained the day prior came back negative. Patient still has significant swelling and blistering. ID recommended treatment with antibiotics for 5 days Objective Data Objective Data Vital Signs: Vital Signs Temp Pulse Resp BP Pulse Ox O2 Del Method O2 Flow Rate 98.7 F 95 18 146/65 H 95 Nasal Cannula 2 01/30/25 11:14 01/30/25 11:14 01/30/25 11:14 01/30/25 11:14 01/30/25 11:14 01/30/25 11:14 01/30/25 11:14 Oxygen Flow Rate (L/min) 2 Oxygen Delivery Method Nasal Cannula Weight: 98.6 kg Body Mass Index (BMI) 38.5 Intake & Output: Intake and Output for Last 24 Hours 01/28/25 01/29/25 01/30/25 23:59 23:59 23:59 Intake Total 2009.00 / 2009. 400 / 800 600 / 600 Output Total 2115 / 2415 1800 / 2100 300 / 300 Balance -105.00 / -405.00 -1400 / -1300 300 / 300 Lab / Micro Data 01/30/25 06:28 01/30/25 06:28 Labs: Laboratory Results - last 24 hr 01/29/25 13:19: POC Glucose 371 H 01/29/25 16:19: POC Glucose 370 H 01/29/25 20:59: POC Glucose 281 H 01/30/25 06:05: POC Glucose 323 H 01/30/25 06:28: WBC 9.7, RBC 3.51 L, Hgb 10.7 L, Hct 31.5 L, MCV 89.7, MCH 30.5, MCHC 34.0, RDW Std Deviation 46.5 H, RDW Coeff of Geal 14.4, Plt Count 201, MPV 10.0, Immature Gran % (Auto) 1.900 H, Neut % (Auto) 70.9 H, Lymph % (Auto) 16.3 L, [place] % (Auto) 9.3, Eos % (Auto) 1.1, Baso % (Auto) 0.5, Absolute Neuts (auto) 6.9, Absolute Lymphs (auto) 1.57, Nucleated RBC % 0, Sodium 133, Potassium 4.7, Chloride 99, Carbon Dioxide 22.2, Anion Gap 12, BUN 14, Creatinine 0.61 L, Estim Creat Clear Calc 105.63, Est GFR (MDRD) Non-Af 100, BUN/Creatinine Ratio 22.8 H, Glucose 345 H, Calcium 8.8 01/30/25 09:56: POC Glucose 334 H Micro: Microbiology 01/26/25 23:50 Urine Catheter - Pozo Urine Culture - Final ESBL Escherichia coli 01/26/25 23:38 Blood Culture (Wb) - Anticubital Left Blood Culture - Preliminary No growth in 48 hours. 01/27/25 00:33 Blood Culture (Wb) - Anticubital Left Blood Culture - Preliminary No growth in 48 hours. Radiography Diagnostic Testing: Radiology Impression Venous Doppler Study 01/29/25 11:14 Interpretation Summary Deep veins of the right lower extremity are patent and compressible segmentally. There is no evidence of right lower extremity deep vein thrombosis. Valvular competence appears intact within the proximal deep venous system on the right . The right great saphenous vein appears patent and compressible segmentally. Ordering Physician: Suresh Banegas Referring Physician: Taya Wong Performed By: Eric Olivia, T Chest X-Ray 01/29/25 14:04 IMPRESSION: No acute cardiopulmonary process. Reading Location: [facility] Physical Exam Narrative GENERAL: Awake and cooperative HEENT: Atraumatic; normocephalic EYES; Anicteric, Normal Conjunctiva NECK; supple, normal thyroid, RESPIRATORY: Diminished to auscultation, bilateral CARDIOVASCULAR: Regular S1 S2, GI: soft, normoactive bowel sounds, : No Renal angle tenderness; EXTREMITIES: Trace bipedal edema, no clubbing, MUSCULOSKELETAL: Right lower with blisters on anterior tibia, with significant swelling NEURO: Awake and cooperative SKIN: No Rash PSYCH; Flat affect Assessment & Plan Assessment/Plan (1) Acute cystitis without hematuria: PLAN: Plan Patient is a 64 old lady resident of an extended care facility who was brought to the emergency department with decreased level of sensorium 1. Acute toxic and metabolic encephalopathy Secondary to acute cystitis as well as accidental drug overdose ? 01/28/2025; patient level of sensorium improving. 2. Acute cystitis (sepsis ruled out) ? Started on ceftriaxone, culture sent ? 01/28/2025;Patient urine cultures so far positive for ESBL E. coli patient started on meropenem consult placed to ID - 01/29/2025;Patient was seen in consultation by infectious disease. Dr. Robbins did agree with continuation of meropenem. Patient has low-grade fever. Will continue to monitor until patient becomes afebrile prior to patient being discharged to a residential facility 3. Accidental drug overdose ? Patient apparently has had chronic pain in place and had received oxycodone/acetaminophen for recent Tibia-fibula fracture 4. Recent tibia-fibula fracture ? Patient right lower extremity immobilized. ? 01/29/2025; patient has significant swelling involving the right lower extremity ordered venous duplex to rule out DVT. Consult was also placed to Dr. Chow whom patient was scheduled to to see as outpatient. ? 01/30/2025; venous duplex obtained came back negative for DVT 5. Mild hyperkalemia ? Ordered repeat BMP ? 01/28/2025; patient potassium down to 4.9 repeat BMP ordered for a.m. 6. Class II obesity with BMI of 38.3 ? Complicating care 7. Schizoaffective disorder (schizophrenia as well as bipolar disorder ? Did resume home meds 8. Diabetes mellitus type II Patient is on long-acting insulin resumed, also placed Accu-Cheks a.c. and at bedtime and covered with sliding scale insulin ? 01/28/2025; patient blood glucose control not optimal further adjustment made to patient insulin regimen ? 01/30/2025; patient glucose levels still remain elevated added scheduled a.m. dose of long-acting insulin 9. Hypertension ? Blood pressure controlled, home medications continued with dose adjustment as needed 10. Dyslipidemia ?Patient is on statin therapy, continued at home dose 11. Systemic use of apixaban ? Indication unclear from patient's history 12. DVT prophylaxis ? Patient is on apixaban Time spent in the patient's overall evaluation,decision-making process, review of diagnostic data, adjustment of management, discussion with other providers, nursing nursing and ancillary staff involved in patient's care documentation, 38 Minutes Charges/Coding Visit Charges Inpatient E&M: 55318 Subs Hosp L2
[2025-01-30] MEDS: Insulin Glargine-YFGN 100 UNIT/ML Pen 20 UNIT SC (12:37)
[2025-01-30] MEDS: Budesonide Respules 0.5 MG/2 ML AMPUL.NEB. INHALATION (20:19)
[2025-01-30 20:20] VITALS: PULSE 93; RESP 18
[2025-01-30 20:22] VITALS: O2SAT 95
[2025-01-30] MEDS: Insulin Glargine-YFGN 100 UNIT/ML Pen 30 UNIT SC (21:16)
[2025-01-31] VITALS (7 sets, daily range): BP systolic 124–137; BP diastolic 55–62; PULSE 80–94; RESP 16–18; TEMP 36.6–37.3; O2SAT 92–98; BMI 38.9
[2025-01-31] MEDS: Meropenem 1 GM in 0.9% Normal Saline (100mL MB+) 100 ML IV ×3 (06:21→20:59)
[2025-01-31] MEDS: Budesonide Respules 0.5 MG/2 ML AMPUL.NEB. INHALATION ×2 (07:37→20:48)
--- NOTE | 2025-01-31 09:11 | PN.HOSP_ITS ---
Reason for Visit Chief Complaint: AMS. Subjective Subjective Patient seen blood glucose still remain markedly elevated with glucose levels in the 3-4 100s. Subsequent adjustment made to patient insulin regimen. Patient also remains on meropenem for her ESBL. Objective Data Objective Data Vital Signs: Vital Signs Temp Pulse Resp BP Pulse Ox O2 Del Method O2 Flow Rate 98.7 F 92 18 146/65 H 95 Nasal Cannula 2 01/30/25 11:14 01/31/25 07:38 01/31/25 07:38 01/30/25 11:14 01/31/25 07:38 01/31/25 07:38 01/31/25 07:38 Oxygen Flow Rate (L/min) 2 Oxygen Delivery Method Nasal Cannula Weight: 99.9 kg Body Mass Index (BMI) 38.9 Intake & Output: Intake and Output for Last 24 Hours 01/29/25 01/30/25 01/31/25 23:59 23:59 23:59 Intake Total 400 / 800 1500 / 1500 100 / 100 Output Total 1800 / 2100 300 / 300 Balance -1400 / -1300 1200 / 1200 100 / 100 Lab / Micro Data 01/30/25 06:28 01/30/25 06:28 Labs: Laboratory Results - last 24 hr 01/30/25 09:56: POC Glucose 334 H 01/30/25 16:38: POC Glucose 453 H* 01/30/25 21:15: POC Glucose 422 H 01/31/25 06:19: POC Glucose 362 H 01/31/25 08:40: POC Glucose 304 H Micro: Microbiology 01/26/25 23:50 Urine Catheter - Pozo Urine Culture - Final ESBL Escherichia coli 01/26/25 23:38 Blood Culture (Wb) - Anticubital Left Blood Culture - Preliminary No growth in 48 hours. 01/27/25 00:33 Blood Culture (Wb) - Anticubital Left Blood Culture - Preliminary No growth in 48 hours. Physical Exam Narrative GENERAL: Awake and cooperative HEENT: Atraumatic; normocephalic EYES; Anicteric, Normal Conjunctiva NECK; supple, normal thyroid, RESPIRATORY: Diminished to auscultation, bilateral CARDIOVASCULAR: Regular S1 S2, GI: soft, normoactive bowel sounds, : No Renal angle tenderness; EXTREMITIES: Trace bipedal edema, no clubbing, MUSCULOSKELETAL: Right lower with blisters on anterior tibia, with significant swelling NEURO: Awake and cooperative SKIN: No Rash PSYCH; Flat affect Assessment & Plan Assessment/Plan (1) Acute cystitis without hematuria: PLAN: Plan Patient is a 64 old lady resident of an extended care facility who was brought to the emergency department with decreased level of sensorium 1. Acute toxic and metabolic encephalopathy Secondary to acute cystitis as well as accidental drug overdose ? 01/28/2025; patient level of sensorium improving. ? 01/31/2025; patient back to baseline 2. Acute cystitis (sepsis ruled out) ? Started on ceftriaxone, culture sent ? 01/28/2025;Patient urine cultures so far positive for ESBL E. coli patient started on meropenem consult placed to ID - 01/29/2025;Patient was seen in consultation by infectious disease. Dr. Robbins did agree with continuation of meropenem. Patient has low-grade fever. Will continue to monitor until patient becomes afebrile prior to patient being discharged to a long term facility ? 01/31/2025; patient remains on meropenem 3. Accidental drug overdose ? Patient apparently has had chronic pain in place and had received oxycodone/acetaminophen for recent Tibia-fibula fracture 4. Recent tibia-fibula fracture ? Patient right lower extremity immobilized. ? 01/29/2025; patient has significant swelling involving the right lower extremity ordered venous duplex to rule out DVT. Consult was also placed to Dr. Chow whom patient was scheduled to to see as outpatient. ? 01/30/2025; venous duplex obtained came back negative for DVT ? 01/31/2025; patient placed still remains intact. Patient did receive 80 mg of IV Lasix the day prior to treat the bilateral lower extremity swelling 5. Mild hyperkalemia ? Ordered repeat BMP ? 01/28/2025; patient potassium down to 4.9 repeat BMP ordered for a.m. 6. Class II obesity with BMI of 38.3 ? Complicating care 7. Schizoaffective disorder (schizophrenia as well as bipolar disorder ? Did resume home meds 8. Diabetes mellitus type II Patient is on long-acting insulin resumed, also placed Accu-Cheks a.c. and at bedtime and covered with sliding scale insulin ? 01/28/2025; patient blood glucose control not optimal further adjustment made to patient insulin regimen ? 01/30/2025; patient glucose levels still remain elevated added scheduled a.m. dose of long-acting insulin 9. Hypertension ? Blood pressure controlled, home medications continued with dose adjustment as needed 10. Dyslipidemia ?Patient is on statin therapy, continued at home dose 11. Systemic use of apixaban ? Indication unclear from patient's history 12. DVT prophylaxis ? Patient is on apixaban Time spent in the patient's overall evaluation,decision-making process, review of diagnostic data, adjustment of management, discussion with other providers, nursing nursing and ancillary staff involved in patient's care documentation, 36 Minutes Charges/Coding Visit Charges Inpatient E&M: 29365 Subs Hosp L2
[2025-01-31] MEDS: Glycerin/Hypromellose/PEG400 15 ml Bottle 1 DRP EACH EYE ×2 (09:57→20:50)
[2025-01-31 10:20] LABS: Hematocrit 33.9 % (37-47); Hemoglobin 11.6 g/dL (12.0-15.0); Mean Corp Hgb Conc 34.2 g/dL (32-36); Mean Corpuscular Volume 88.7 fL (81-99); Mean Platelet Vol. 9.8 fl (6.2-12.0); Platelet Count 246 K/mm3 (150-450); RBC Distribution Width CV 14.6 % (11.6-14.6); RBC Distribution Width SD 46.4 fl (35.1-43.9); Red Blood Count 3.82 M/mm3 (4.2-5.4); White Blood Count 13.2 K/mm3 (4.4-11.0)
[2025-01-31 10:57] LABS: AST(SGOT) 64 U/L (<=31); Alanine Aminotransfer ALT/SGPT 71 U/L (<=34); Albumin, Serum 3.2 g/dL (3.4-4.8); Alkaline Phosphatase 75 U/L (35-104); Anion Gap 12 (5-15); BUN 16 mg/dL (4-19); BUN/Creat Ratio 26.6 RATIO (10-20); Calcium,Total 9.2 mg/dL (7.6-11.0); Carbon Dioxide 25.4 mmol/L (21.0-32.0); Chloride 96 mmol/L (98-108); Estimated Creatinine Clearance 106.40 ml/min (50-250); Globulin 3.4 g/dL (2.2-4.2); Glucose 370 mg/dL (70-99); Magnesium 2.0 mg/dL (1.5-2.2); Potassium 4.2 mmol/L (3.3-5.1)
[2025-01-31] MEDS: Insulin Glargine-YFGN 100 UNIT/ML Pen 40 UNIT SC ×2 (11:10→20:50)
[2025-02-01 04:17] VITALS: BP 136/64; PULSE 93; RESP 16; TEMP 36.6; O2SAT 99
[2025-02-01 05:12] VITALS: BMI 37.3
[2025-02-01] MEDS: Meropenem 1 GM in 0.9% Normal Saline (100mL MB+) 100 ML IV ×3 (06:04→20:08)
[2025-02-01] MEDS: Budesonide Respules 0.5 MG/2 ML AMPUL.NEB. INHALATION ×2 (06:31→19:52)
[2025-02-01 06:32] VITALS: PULSE 90; RESP 18; O2SAT 93
[2025-02-01 07:01] LABS: Hematocrit 32.7 % (37-47); Hemoglobin 10.9 g/dL (12.0-15.0); Immature Granulocytes Count 0.310 X10^3/uL (0.0-0.0); Mean Corp Hgb Conc 33.3 g/dL (32-36); Mean Corpuscular Volume 90.8 fL (81-99); Mean Platelet Vol. 9.5 fl (6.2-12.0); NRBC Flagged by Analyzer 0 % (0-5); Platelet Count 264 K/mm3 (150-450); RBC Distribution Width CV 14.6 % (11.6-14.6); RBC Distribution Width SD 48.2 fl (35.1-43.9); Red Blood Count 3.60 M/mm3 (4.2-5.4); White Blood Count 13.7 K/mm3 (4.4-11.0)
[2025-02-01 07:47] LABS: Anion Gap 11 (5-15); BUN 17 mg/dL (4-19); BUN/Creat Ratio 27.9 RATIO (10-20); Calcium,Total 9.1 mg/dL (7.6-11.0); Carbon Dioxide 27.4 mmol/L (21.0-32.0); Chloride 96 mmol/L (98-108); Estimated Creatinine Clearance 105.66 ml/min (50-250); Glucose 263 mg/dL (70-99); Potassium 3.6 mmol/L (3.3-5.1)
[2025-02-01 11:00] VITALS: BP 143/68; PULSE 86; RESP 16; TEMP 36.8; O2SAT 92
[2025-02-01] MEDS: Glycerin/Hypromellose/PEG400 15 ml Bottle 1 DRP EACH EYE ×2 (11:16→20:07)
--- NOTE | 2025-02-01 11:36 | PCM.PROGNOTE ---
Subjective Subjective Patient seen and examined with her nurse by her bedside. Her sister was also by her bedside. Patient denied any fever or chills though she did admit to a headache. She denied any nausea or vomiting or abdominal pain. She has a Wilhelm catheter in situ. She is alert and communicative. Her sister stated that has a pain pump in and sister is concerned that she may know really needs a pain pump and is worried that the pain meds might be what are causing patient's symptoms. Patient states she has had the pain pump for about [address] Ruelas. Patient sister stated that she has had challenges with Dr. Wells and states she has had to call the university relations director on Dr. Ruelas before. I asked if she wants another pain management doctor to see the patient but she demurred. Dr. Ruelas is due to see the patient today. I explained to her sister that the pain pump fell within the purview of pain management, and so we would need pain management input to determine if the pump still needed to remain in situ or otherwise. Objective Data Objective Data Vital Signs: Vital Signs Temp Pulse Resp BP Pulse Ox O2 Del Method O2 Flow Rate 97.9 F 90 18 136/64 H 93 Nasal Cannula 2 02/01/25 04:17 02/01/25 06:32 02/01/25 06:32 02/01/25 04:17 02/01/25 06:32 02/01/25 06:32 02/01/25 10:30 Oxygen Flow Rate (L/min) 2 Oxygen Delivery Method Nasal Cannula Weight: 211 lb 1.6 oz Body Mass Index (BMI) 37.3 Intake & Output: Intake and Output for Last 24 Hours 01/30/25 01/31/25 02/01/25 23:59 23:59 23:59 Intake Total 1500 / 1500 300 / 300 200 / 200 Output Total 300 / 300 2049 / 2049 Balance 1200 / 1200 -1750 / -1750 200 / 200 Lab / Micro Data 02/01/25 06:41 02/01/25 06:41 Labs: Laboratory Results - last 24 hr 01/31/25 11:17: POC Glucose 318 H 01/31/25 16:27: POC Glucose 272 H 01/31/25 20:46: POC Glucose 344 H 02/01/25 05:54: POC Glucose 247 H 02/01/25 06:41: WBC 13.7 H, RBC 3.60 L, Hgb 10.9 L, Hct 32.7 L, MCV 90.8, MCH 30.3, MCHC 33.3, RDW Std Deviation 48.2 H, RDW Coeff of Gael 14.6, Plt Count 264, MPV 9.5, Immature Gran % (Auto) 2.300 H, Neut % (Auto) 77.1 H, Lymph % (Auto) 12.2 L, [place] % (Auto) 6.9, Eos % (Auto) 1.1, Baso % (Auto) 0.4, Absolute Neuts (auto) 10.5 H, Absolute Lymphs (auto) 1.66, Nucleated RBC % 0, Sodium 133, Potassium 3.6, Chloride 96 L, Carbon Dioxide 27.4, Anion Gap 11, BUN 17, Creatinine 0.60 L, Estim Creat Clear Calc 105.66, Est GFR (MDRD) Non-Af 101, BUN/Creatinine Ratio 27.9 H, Glucose 263 H, Calcium 9.1, Phosphorus 3.1 Micro: Microbiology 01/27/25 00:33 Blood Culture (Wb) - Anticubital Left Blood Culture - Final No growth in 5 days. 01/26/25 23:38 Blood Culture (Wb) - Anticubital Left Blood Culture - Final No growth in 5 days. 01/26/25 23:50 Urine Catheter - Wilhelm Urine Culture - Final ESBL Escherichia coli Physical Exam Const alert, oriented x3 and no apparent distress General Appearance: cooperative HEENT normocephalic, head/scalp atraumatic, moist oral mucous membranes and oropharynx normal Eyes EOMs intact bilaterally Neck no lymphadenopathy and supple Lymph Lymphatic: no lymphadenopathy noted and no lymphedema noted Resp Resp Narrative: mildly diminished breath sounds bibasally, on 2L of oxygen by nasal canula. Cardio regular rate, regular rhythm, S1 normal heart sound, S2 normal heart sound and no murmurs GI normal to inspection, nondistended, normoactive bowel sounds, soft to palpation, non-tender and non-distended GI Narrative: pain pump in situ over RLQ. Extremity Extremity Narrative: RLE in leg brace. Large fluid filled blister over right chopra, with some erythema. Skin Skin Narrative: as under extremities Neuro CN's II-XII intact bilaterally, no focal motor deficits, no sensory deficits noted and deep tendon reflexes 2+ bilaterally Motor Exam: general weakness Psych thought process normal and cooperative Mood & Affect: flat affect Assessment & Plan Assessment/Plan (1) Fracture of tibia and fibula: (2) UTI (urinary tract infection): (3) Acute metabolic encephalopathy: PLAN: Plan #Acute metabolic and toxic encephalopathy Due to UTI and accidental drug overdose. Patient has pain pump in place and had apparently also been given oral oxycodone-acetaminophen for recent tibia-fibula fracture. It is therefore thought that she had an accidental drug overdose. She was also found to have UTI on admission. Was started on ceftriaxone. ID on board. Urine cultures positive for ESBL E. coli so antibiotics transitioned to IV meropenem. Her mentation has improved. She is awaiting pain management evaluation today. As stated her sister does not think she needs the pain pump but patient states that she has been on it for 20 years and thinks she needs it. PT/OT on board. Fall precautions will dc wilhelm catheter today. wbc today is 13.7 #Recent tibia-fibula fracture RLE immobilised in a brace. DUplex was negative for DVT Orthopedics consulted. Await rec's PT/OT on board. Wound consult placed. fall precautions. #Hyperkalemia: resolved. #Chronic pain syndrome: pain pump in situ. To be evaluated by pain management today. #Type 2 diabetes mellitus on lantus. ISS> Accuc hecks ACHS #Hypertension: continue BP meds #Dyslipidemia: n statin. #Anticoagulant use: on eliquis. Reason for usage is unclear. #DVT prophylaxis: on lovenox therapeutic dose to substitute for eliquis usage. Charges/Coding Visit Charges Inpatient E&M: 66230 Subs Hosp L2
[2025-02-01] MEDS: Insulin Glargine-YFGN 100 UNIT/ML Pen 40 UNIT SC ×2 (11:40→22:12)
--- NOTE | 2025-02-01 11:44 | PCM.PN.ID ---
Physical Exam Narrative Per sister remains confused. Some abd pain, distension. Reports new diarrhea. No fever, no cough. Const alert and no apparent distress General Appearance: cooperative Resp normal air movement and clear to auscultation bilaterally Cardio regular rate and regular rhythm GI soft to palpation and non-tender; Negative for non-distended Extremity General Extremity: Negative for edema Skin no rashes or lesions noted ID ID: Route of nutrition/ use of supplements: [] Nutritional Intake: [] IV Site: [] Pozo Catheter: [] Assessment & Plan Assessment/Plan (1) UTI (urinary tract infection): PLAN: ESBL ecoli uti, on meropenem, improving. Fever resolved. Mild leukocytosis, new diarrhea, will check cdiff, cont karthikeyan. will follow (2) Fracture of tibia and fibula: (3) Acute metabolic encephalopathy:
--- NOTE | 2025-02-01 12:13 | CASEMGMT ---
Discharge Planning Updates sent to [facility] [place]. Lori Gloria DC Planning Asst.
[2025-02-01] MEDS: 0.9% Normal Saline (250mL Bag) 250 ML 15 ML IV (15:27)
[2025-02-01 19:00] VITALS: PULSE 96
[2025-02-01 19:59] VITALS: PULSE 92; RESP 20
[2025-02-01 20:00] VITALS: BP 131/57; PULSE 98; RESP 18; TEMP 36.8; O2SAT 93
[2025-02-01] MEDS: APIXABAN 5 MG TABLET PO (20:08)
[2025-02-02] VITALS (7 sets, daily range): BP systolic 128–143; BP diastolic 47–58; PULSE 80–103; RESP 14–19; TEMP 36.7–37.3; O2SAT 93–98; BMI 37.7
[2025-02-02] MEDS: Meropenem 1 GM in 0.9% Normal Saline (100mL MB+) 100 ML IV (05:14)
[2025-02-02] MEDS: Budesonide Respules 0.5 MG/2 ML AMPUL.NEB. INHALATION ×2 (06:56→19:29)
[2025-02-02 06:57] LABS: Hematocrit 30.7 % (37-47); Hemoglobin 10.1 g/dL (12.0-15.0); Immature Granulocytes Count 0.440 X10^3/uL (0.0-0.0); Mean Corp Hgb Conc 32.9 g/dL (32-36); Mean Corpuscular Volume 91.9 fL (81-99); Mean Platelet Vol. 9.5 fl (6.2-12.0); NRBC Flagged by Analyzer 0.2 % (0-5); Platelet Count 261 K/mm3 (150-450); RBC Distribution Width CV 14.7 % (11.6-14.6); RBC Distribution Width SD 48.8 fl (35.1-43.9); Red Blood Count 3.34 M/mm3 (4.2-5.4); White Blood Count 10.0 K/mm3 (4.4-11.0)
[2025-02-02 08:39] LABS: Anion Gap 9 (5-15); BUN 16 mg/dL (4-19); BUN/Creat Ratio 23.8 RATIO (10-20); Calcium,Total 8.9 mg/dL (7.6-11.0); Carbon Dioxide 27.4 mmol/L (21.0-32.0); Chloride 98 mmol/L (98-108); Estimated Creatinine Clearance 96.47 ml/min (50-250); Glucose 355 mg/dL (70-99); Potassium 3.7 mmol/L (3.3-5.1)
[2025-02-02] MEDS: LURASIDONE HCL 40 MG TABLET 80 MG PO (08:55)
[2025-02-02] MEDS: Cholecalciferol (Vit D3) 125 MCG CAPSULE (5,000 UNITS) PO (08:56)
[2025-02-02] MEDS: APIXABAN 5 MG TABLET PO ×2 (08:56→22:27)
[2025-02-02] MEDS: Glycerin/Hypromellose/PEG400 15 ml Bottle 1 DRP EACH EYE ×2 (08:57→22:21)
--- NOTE | 2025-02-02 10:58 | PCM.PN.ID ---
Physical Exam Narrative Feeling better, no abd pain, no fever, denies diarrhea Const alert and no apparent distress Resp normal air movement and clear to auscultation bilaterally Cardio regular rate and regular rhythm GI soft to palpation, non-tender and non-distended Skin no rashes or lesions noted ID ID: Route of nutrition/ use of supplements: [] Nutritional Intake: [] IV Site: [] Pozo Catheter: [] Assessment & Plan Assessment/Plan (1) UTI (urinary tract infection): PLAN: ESBL ecoli uti, on meropenem, improving. Fever resolved. Mild leukocytosis now resolved. Ok for discharge off of abx. will follow prn (2) Fracture of tibia and fibula: (3) Acute metabolic encephalopathy:
--- NOTE | 2025-02-02 12:36 | PN_ITS ---
Subjective Subjective Patient seen and examined. She is feeling better today and has no active complaints. She had an uneventful night. Review of systems otherwise negative. She is still awaiting orthopedic evaluation. I did reach out to Dr. Chow today and sent him a message on backline. Charge nurse also to follow-up. She was evaluated by Dr. Ruelas of pain management yesterday. Dr. Ruelas said he still felt that patient needed a pain pump but if her family felt that she did not they could seek an opinion from a tertiary facility. Objective Data Objective Data Vital Signs: Vital Signs Temp Pulse Resp BP Pulse Ox O2 Del Method O2 Flow Rate 99.2 F H 94 14 143/58 H 98 Room Air 2 02/02/25 08:00 02/02/25 08:00 02/02/25 08:00 02/02/25 08:00 02/02/25 08:00 02/02/25 09:06 02/02/25 08:00 Oxygen Flow Rate (L/min) 2 Oxygen Delivery Method Room Air Weight: 212 lb 11.937 oz Body Mass Index (BMI) 37.7 Intake & Output: Intake and Output for Last 24 Hours 01/31/25 02/01/25 02/02/25 23:59 23:59 23:59 Intake Total 300 / 300 650 / 650 100 / 100 Output Total 0 / 2049 550 / 850 500 / 500 Balance -1750 / -1750 100 / -200 -400 / -400 Lab / Micro Data 02/02/25 06:39 02/02/25 06:39 Labs: Laboratory Results - last 24 hr 02/01/25 16:48: POC Glucose 233 H 02/01/25 22:10: POC Glucose 260 H 02/02/25 06:39: WBC 10.0, RBC 3.34 L, Hgb 10.1 L, Hct 30.7 L, MCV 91.9, MCH 30.2, MCHC 32.9, RDW Std Deviation 48.8 H, RDW Coeff of Gael 14.7 H, Plt Count 261, MPV 9.5, Immature Gran % (Auto) 4.400 H, Neut % (Auto) 69.9, Lymph % (Auto) 16.0 L, [place] % (Auto) 8.1, Eos % (Auto) 1.1, Baso % (Auto) 0.5, Absolute Neuts (auto) 7.0, Absolute Lymphs (auto) 1.59, Nucleated RBC % 0.2, Sodium 134, Potassium 3.7, Chloride 98, Carbon Dioxide 27.4, Anion Gap 9, BUN 16, Creatinine 0.66 L, Estim Creat Clear Calc 96.47, Est GFR (MDRD) Non-Af 98, BUN/Creatinine Ratio 23.8 H, Glucose 355 H, Calcium 8.9 02/02/25 06:46: POC Glucose 324 H 02/02/25 11:04: POC Glucose 317 H Micro: Microbiology 01/27/25 00:33 Blood Culture (Wb) - Anticubital Left Blood Culture - Final No growth in 5 days. 01/26/25 23:38 Blood Culture (Wb) - Anticubital Left Blood Culture - Final No growth in 5 days. 01/26/25 23:50 Urine Catheter - Wilhelm Urine Culture - Final ESBL Escherichia coli Physical Exam Const alert, oriented x3 and no apparent distress Constitutional Narrative: Patient is morbidly obese a General Appearance: cooperative Orientation / Consciousness: lethargic HEENT normocephalic, head/scalp atraumatic, hearing grossly normal bilaterally, moist oral mucous membranes and oropharynx normal Eyes PERRL and EOMs intact bilaterally Neck no lymphadenopathy and supple Lymph Lymphatic: no lymphadenopathy noted and no lymphedema noted Resp normal respiratory effort, no retractions, no use of accessory muscles and clear to auscultation bilaterally Resp Narrative: on room air today Cardio regular rate, regular rhythm, S1 normal heart sound, S2 normal heart sound and no murmurs GI normal to inspection, nondistended, normoactive bowel sounds, soft to palpation, non-tender and non-distended GI Narrative: pain pump in situ over RLQ. Extremity Extremity Narrative: RLE in leg brace. Large fluid filled blister over right chopra, with some erythema. Skin Skin Narrative: as under extremities Neuro CN's II-XII intact bilaterally, no focal motor deficits, no sensory deficits noted and deep tendon reflexes 2+ bilaterally Motor Exam: general weakness Psych thought process normal and cooperative Mood & Affect: flat affect Assessment & Plan Assessment/Plan (1) Fracture of tibia and fibula: (2) UTI (urinary tract infection): (3) Acute metabolic encephalopathy: PLAN: Plan #Acute metabolic and toxic encephalopathy * Due to UTI and accidental drug overdose. * Patient has pain pump in place and had apparently also been given oral oxycodone-acetaminophen for recent tibia-fibula fracture. It is therefore thought that she had an accidental drug overdose. * She was also found to have UTI on admission. Was started on ceftriaxone. ID on board. Urine cultures positive for ESBL E. coli so antibiotics transitioned to IV meropenem. * Her mentation has improved. She is awaiting pain management evaluation today. As stated her sister does not think she needs the pain pump but patient states that she has been on it for 20 years and thinks she needs it. * PT/OT on board. Fall precautions * wilhelm catheter dc'd * wbc today is down to 10 today * #Recent tibia-fibula fracture * RLE immobilised in a brace. * DUplex was negative for DVT * Orthopedics consulted. Still Await rec's. I have reached out to Dr Chow again. Consult was placed on 01/29/2022 in [facility]. * PT/OT on board. Wound consult placed. * fall precautions. * #Hyperkalemia: resolved. #Chronic pain syndrome: * pain pump in situ. * Pain management evaluated patient and pain management doctor recommended that patient and the family could seek opinion from a tertiary facility if they did not think she still needed the pain pump. #Type 2 diabetes mellitus * on lantus. ISS> Accuc hecks ACHS * #Hypertension: continue BP meds #Dyslipidemia: n statin. #Anticoagulant use: on eliquis. Reason for usage is unclear. #DVT prophylaxis: on lovenox therapeutic dose to substitute for eliquis usage. Charges/Coding Visit Charges Inpatient E&M: 44392 Subs Hosp L2
--- NOTE | 2025-02-02 12:57 | WOUNDNOTE ---
wound photo: right lower leg
[2025-02-02] MEDS: Insulin Glargine-YFGN 100 UNIT/ML Pen 40 UNIT SC ×2 (13:10→22:22)
--- NOTE | 2025-02-02 15:57 | NURSING ---
Pt had wilhelm d/c around 0600 this am[address] in [address] but no output all day. Check and change. messaged Dr Carter that bladder scan was done w/ 321 mL noted. Order to st cath x1. st cath done with 400 mL dark ash urine. Prior to st cath pt was sleeping but when asked stated she felt full. slept through procedure but verbalized relief when asked after.
[2025-02-03 04:23] VITALS: BP 123/56; PULSE 84; RESP 16; TEMP 37; O2SAT 94
[2025-02-03 05:31] VITALS: BMI 38.0
[2025-02-03] MEDS: Budesonide Respules 0.5 MG/2 ML AMPUL.NEB. INHALATION (06:19)
[2025-02-03 06:20] VITALS: PULSE 75; RESP 18; O2SAT 93
[2025-02-03 06:52] LABS: Hematocrit 30.5 % (37-47); Hemoglobin 10.0 g/dL (12.0-15.0); Immature Granulocytes Count 0.440 X10^3/uL (0.0-0.0); Mean Corp Hgb Conc 32.8 g/dL (32-36); Mean Corpuscular Volume 91.6 fL (81-99); Mean Platelet Vol. 9.6 fl (6.2-12.0); NRBC Flagged by Analyzer 0 % (0-5); Platelet Count 283 K/mm3 (150-450); RBC Distribution Width CV 14.8 % (11.6-14.6); RBC Distribution Width SD 49.2 fl (35.1-43.9); Red Blood Count 3.33 M/mm3 (4.2-5.4); White Blood Count 9.3 K/mm3 (4.4-11.0)
[2025-02-03 07:31] LABS: Anion Gap 9 (5-15); BUN 17 mg/dL (4-19); BUN/Creat Ratio 25.7 RATIO (10-20); Calcium,Total 8.9 mg/dL (7.6-11.0); Carbon Dioxide 27.9 mmol/L (21.0-32.0); Chloride 101 mmol/L (98-108); Estimated Creatinine Clearance 95.57 ml/min (50-250); Glucose 275 mg/dL (70-99); Potassium 3.9 mmol/L (3.3-5.1)
[2025-02-03 07:48] VITALS: BP 119/54; PULSE 79; RESP 16; TEMP 36.6; O2SAT 119
[2025-02-03] MEDS: Glycerin/Hypromellose/PEG400 15 ml Bottle 1 DRP EACH EYE ×2 (09:31→22:26)
[2025-02-03] MEDS: APIXABAN 5 MG TABLET PO ×2 (09:33→22:26)
[2025-02-03] MEDS: LURASIDONE HCL 40 MG TABLET 80 MG PO (09:33)
[2025-02-03] MEDS: Cholecalciferol (Vit D3) 125 MCG CAPSULE (5,000 UNITS) PO (09:34)
[2025-02-03] MEDS: Insulin Glargine-YFGN 100 UNIT/ML Pen 40 UNIT SC ×2 (09:34→22:25)
--- NOTE | 2025-02-03 11:19 | CASEMGMT ---
Updated clinicals sent to [facility] with anticipated discharge for today.
[2025-02-03 14:05] VITALS: BP 114/56; PULSE 64; RESP 16; TEMP 36.9; O2SAT 95
--- NOTE | 2025-02-03 14:43 | CONS.ORTHO ---
Documented by User: ARMINDA Barone 02/03/25 14:52 HPI Consult Data Date of Consult: 02/03/25 HPI Narrative HPI Narrative: ELSA MERIDA, is a 64 F who presents with a past medical history of essential hypertension; on atenolol and lisinopril, hyperlipidemia; on atorvastatin, former tobacco abuse; with subsequent asthma/COPD on fluticasone, montelukast and as needed albuterol/ipratropium, morbid (class III) obesity; with BMI of 40.4 this admission on tirzepatide, history of X; on apixaban twice daily, DM-2; of unknown control on insulin glargine 100 units subcu a.m. and 90 units SQ at bedtime plus insulin lispro 50 units subcu daily and 54 units subcu with dinner, diabetic neuropathy; on pregabalin twice daily, history of CVA (2013) with Right hemiplegia and hemiparesis, schizophrenia; on lurasidone plus olanzapine, bipolar disorder; on duloxetine twice daily and clonazepam as needed, RLS, history of EtOH abuse, history of substance abuse, chronic pain syndrome; with implanted pain pump, opiate-induced constipation on naloxegol plus as needed polyethylene glycol daily, history of iron deficiency anemia, OAB; on oxybutynin, GERD; on omeprazole twice daily plus famotidine daily, OA; with spondylosis causing chronic back pain, history of Left hip fracture (2018) and history of pressure injury of the skin of the Right ankle and recent evaluation for fall with subsequent closed proximal Right tibia/fibular fracture with patient evaluated in the ER here on January 25, 2025 with DNR-CC; without intubation CODE STATUS who now re-presents to [facility] ER with staff at her E[facility] noting altered mental status. Patient was seen today 6 days after her initial presentation. The orthopedics doc on-call at that time unfortunately was not reached and did not see the patient. Patient says that she had a fall and does not recall if she hit her head or not. Says that she had instant pain in the right leg. Says that she also got a blister on her right leg which had recently popped and was oozing. Patient also reports a stroke approximately 10 years ago in which she says she has weakness on the right side. Patient says that since the stroke she also has noticed a right sided swelling in the right leg and foot. Patient presents to the ER after being a resident at [facility]. Plan is for a discharged to another skilled nursing, patient is uncertain the name of the skilled nursing. Patient reports that she has been putting some slight weight onto the left leg to compensate for the right during transfers. Patient is a poor historian and had difficulty answering questions. [facility] Medical History History of ESBL E. coli infection History of pressure injury of skin Gastric reflux History of pain when walking Leg cramps Lives in skilled nursing Hx of fracture of hip Wears glasses Wears dentures Post-menopausal Depression Alcohol use Substance abuse Open wound Uses wheelchair Arthritis High cholesterol Restless legs Back pain Smoker Asthma Shortness of breath on exertion History of edema Tobacco abuse Insulin dependent diabetes mellitus Chronic ulcer of right ankle with fat layer exposed GERD (gastroesophageal reflux disease) Anxiety Schizophrenia Hyperlipidemia Insomnia Neuralgia and neuritis Spondylosis Mild asthma Cerebral vascular disease Hypertension Home Medications ?Medication ?Instructions ?Recorded ?Last Taken ?Type ondansetron HCl 4 mg tablet 4 mg PO Q6H PRN PRN Nausea 03/08/19 Unknown History prazosin 1 mg capsule 1 mg PO QHS B/P 03/08/19 01/26/25 History albuterol sulfate 2.5 mg/3 mL 2.5 mg inhalation Q4H PRN SOB 07/29/21 Unknown History (0.083 %) solution for nebulization apixaban 5 mg tablet (Eliquis) 5 mg PO BID anticoag 07/29/21 01/26/25 History lurasidone 80 mg tablet (Latuda) 80 mg PO DAILY atypical 07/29/21 01/26/25 History antipsychotic naloxegol 25 mg tablet (Movantik) 25 mg PO DAILY constipation 07/29/21 01/26/25 History acetaminophen 325 mg tablet 650 mg PO Q6H PRN PRN fever or pain 12/18/22 Unknown History benzonatate 100 mg capsule 100 mg PO Q8H PRN cough 12/18/22 Unknown History bisacodyl 5 mg tablet,delayed 5 mg PO Q8H PRN PRN constipation 12/18/22 Unknown History release (Dulcolax (bisacodyl)) cholecalciferol (vitamin D3) 125 125 mcg PO DAILY [employer] 12/18/22 01/26/25 History mcg (5,000 unit) capsule epinephrine 0.3 mg/0.3 mL 0.3 mg IM Q5-15M PRN anaphylaxis 12/18/22 Unknown History injection, auto-injector (EpiPen) flash glucose sensor (FreeStyle 12/18/22 Unknown History Cynthia 2 Sensor kit) fluticasone fur. 200 mcg-umeclid 1 inh inhalation DAILY copd 12/18/22 01/26/25 History 62.5 mcg-vilant 25 mcg inhalat.powder (Trelegy Ellipta) guaifenesin 100 mg/5 mL oral liquid 200 mg PO Q4H PRN cough 12/18/22 Unknown History ipratropium 0.5 mg-albuterol 3 mg 3 ml inhalation BID PRN shortness 12/18/22 Unknown History (2.5 mg base)/3 mL nebulization of breath soln ipratropium 20 mcg-albuterol 100 1 puff inhalation Q6H PRN 12/18/22 Unknown History mcg/actuation mist for inhalation shortness of breath or wheezing (Combivent Respimat) ipratropium bromide 21 mcg (0.03 2 spray intranasal BID DM 12/18/22 01/26/25 History %) nasal spray lisinopril 2.5 mg tablet 2.5 mg PO DAILY BP 12/18/22 01/26/25 History loratadine 10 mg tablet (Claritin) 10 mg PO DAILY Respitory 12/18/22 01/26/25 History montelukast 10 mg tablet 10 mg PO DAILY allergies 12/18/22 01/26/25 History polyethylene glycol 3350 17 17 g PO DAILY PRN constipation 12/18/22 Unknown History gram/dose oral powder (Miralax) duloxetine 60 mg capsule,delayed 60 mg PO BID mental health 01/16/23 01/26/25 History release (Cymbalta) pregabalin 100 mg capsule 100 mg PO BID pain 01/16/23 01/26/25 History Lactobacillus rhamnosus GG 10 1 cap PO BID immune health 11/27/23 01/26/25 History billion cell capsule (Culturelle) insulin lispro 100 unit/mL 1 sliding scale dose subcut TID DM 11/27/23 01/26/25 History subcutaneous pen (Humalog KwikPen (U-100) Insulin) loperamide 2 mg capsule 4 mg PO BID PRN loose stool 11/27/23 Unknown History (Anti-Diarrheal (loperamide)) carboxymethylcellulose sodium 0.5 1 drp EACH EYE BID dry eye 01/30/24 01/26/25 History % eye drops (Refresh Tears) cyclosporine 0.05 % eye drops in a 1 drp EACH EYE Q12H dry eyes 01/30/24 01/26/25 History dropperette (Restasis) atenolol 50 mg tablet 50 mg PO QDAY B/P 11/20/24 01/26/25 History clonazepam 0.5 mg tablet 0.5 mg PO 1500 PRN anxiety 11/20/24 Unknown History insulin glargine U-300 conc 300 100 unit subcut QAM DM 11/20/24 01/26/25 History unit/mL (1.5 mL) subcutaneous pen (Toujeo SoloStar U-300 Insulin) insulin glargine U-300 conc 300 90 unit subcut QHS DM 11/20/24 01/26/25 History unit/mL (3 mL) subcutaneous pen (Toujeo Max U-300 SoloStar) insulin lispro 100 unit/mL 50 unit subcut DAILY DM 11/20/24 01/26/25 History subcutaneous pen (Humalog KwikPen (U-100) Insulin) insulin lispro 100 unit/mL 54 unit subcut DINNER DM 11/20/24 01/26/25 History subcutaneous pen (Humalog KwikPen (U-100) Insulin) magnesium hydroxide 400 mg/5 mL 15 ml PO BID PRN constipation 11/20/24 Unknown History oral suspension (Milk of Magnesia) tirzepatide 7.5 mg/0.5 mL 7.5 mg subcut FR DM 11/20/24 01/26/25 History subcutaneous pen injector (Johnnieunjohnathonro) atorvastatin 40 mg tablet 40 mg PO DAILY colesteral 01/20/25 01/26/25 History cranberry 500 mg capsule 500 mg PO DAILY bladder 01/20/25 01/26/25 History famotidine 40 mg tablet 40 mg PO DAILY gerd 01/20/25 01/26/25 History olanzapine 15 mg tablet 15 mg PO QHS schizophrenia 01/20/25 01/26/25 History effective oxycodone-acetaminophen 5 mg-325 1 tab PO Q6H PRN pain 5 days #20 01/25/25 Unknown Rx mg tablet (Percocet) tabs omeprazole 40 mg capsule,delayed 40 mg PO BID Gerd 01/26/25 01/26/25 History release oxybutynin chloride 5 mg tablet 5 mg PO DAILY overactive bladder 01/26/25 01/26/25 History Allergy/AdvReac Type Severity Reaction Status Date / Time apricot Allergy Unknown PT UNSURE Verified 01/26/25 23:17 OF REACTION BCG (Bacillus Allergy Unknown Other Verified 01/26/25 23:17 Calmette-Zohra) vacc bee venom protein (honey Allergy Unknown Other Verified 01/26/25 23:17 bee) (bee sting) corn Allergy Unknown Other Verified 01/26/25 23:17 Milk Containing Products Allergy Unknown Other Verified 01/26/25 23:17 (Dairy) peas Allergy Unknown Other Verified 01/26/25 23:17 tomato Allergy Unknown Other Verified 01/26/25 23:17 Iodinated Contrast Media Allergy Hives Verified 01/26/25 23:17 (Iodinated Contrast Media - IV Dye) amoxicillin trihydrate (From AdvReac Itching Verified 01/26/25 23:17 Augmentin) hydrocodone (From Vicodin) AdvReac Unknown Verified 01/26/25 23:17 potassium clavulanate (From AdvReac Itching Verified 01/26/25 23:17 Augmentin) shellfish derived AdvReac Itching Verified 01/26/25 23:17 Surgical History History of surgery History of History of tubal ligation History of hysterectomy History of cholecystectomy History of appendectomy S/P right rotator cuff repair Social History Smoking Status: Former smoker Vital Signs Vital Signs Vital Signs: 02/02/25 19:30 02/02/25 22:00 02/02/25 22:00 Temperature Temperature Source Pulse Rate 82 Pulse Strength Normal (2+) Respiratory Rate 16 Respiratory Effort Normal Non-Labored Respiratory Depth Normal Respiratory Pattern Normal Normal Blood Pressure Blood Pressure Mean Blood Pressure Source Blood Pressure Position Blood Pressure Location Pulse Ox Oxygen Delivery Method Nasal Cannula Oxygen Flow Rate (L/min) 2 02/02/25 22:11 02/03/25 04:23 02/03/25 06:20 Temperature 98.1 F 98.6 F Temperature Source Oral Oral Pulse Rate 86 84 75 Pulse Strength Respiratory Rate 16 16 18 Respiratory Effort Respiratory Depth Respiratory Pattern Normal Blood Pressure 143/55 H 123/56 H Blood Pressure Mean 84 78 Blood Pressure Source Monitor Monitor Blood Pressure Position Semi-Fowlers Semi-Fowlers Blood Pressure Location Left Arm Left Arm Pulse Ox 98 94 Oxygen Delivery Method Nasal Cannula Nasal Cannula Oxygen Flow Rate (L/min) 2 2 02/03/25 06:20 02/03/25 07:48 02/03/25 09:51 Temperature 97.8 F Temperature Source Oral Pulse Rate 79 Pulse Strength Normal (2+) Respiratory Rate 16 Respiratory Effort Respiratory Depth Respiratory Pattern Blood Pressure 119/54 L Blood Pressure Mean 75 Blood Pressure Source Monitor Blood Pressure Position Semi-Fowlers Blood Pressure Location Left Arm Pulse Ox 93 119 Oxygen Delivery Method Nasal Cannula Nasal Cannula Oxygen Flow Rate (L/min) 2 2 02/03/25 09:52 02/03/25 11:35 02/03/25 14:05 Temperature 98.4 F Temperature Source Temporal Pulse Rate 64 Pulse Strength Respiratory Rate 16 Respiratory Effort Normal Non-Labored Respiratory Depth Normal Respiratory Pattern Normal Blood Pressure 114/56 L Blood Pressure Mean 75 Blood Pressure Source Monitor Blood Pressure Position Sitting Blood Pressure Location Left Arm Pulse Ox 95 Oxygen Delivery Method Nasal Cannula Nasal Cannula Oxygen Flow Rate (L/min) 2 2 2 Weight Weight: 214 lb 15.211 oz Body Mass Index (BMI) 38.0 Physical Exam Narrative Physical examination of the lower extremities shows a swollen right foot and ankle with pitting edema, patient reports this has been normal for her since her stroke approximately 10 years ago. Patient is unable to dorsiflex the right ankle which she reports has been going on also since the stroke however it has worsened since her injury. Patient is able to move the left side without any restriction. Patient is able to flex and extend the right knee. Physical examination also shows skin discoloration over the anterior leg below the knee. There is ABD pads underneath the right lower extremity brace showed very minimal drainage. Patient had pain in the right toes when her toes were passively flexed and extended. Denied any pain in her calf. Const alert, oriented x3 and no apparent distress Lab / Micro Data 02/03/25 06:21 02/03/25 06:21 Labs: Laboratory Results - last 24 hr 02/02/25 16:26: POC Glucose 263 H 02/02/25 22:18: POC Glucose 266 H 02/03/25 06:21: WBC 9.3, RBC 3.33 L, Hgb 10.0 L, Hct 30.5 L, MCV 91.6, MCH 30.0, MCHC 32.8, RDW Std Deviation 49.2 H, RDW Coeff of Gael 14.8 H, Plt Count 283, MPV 9.6, Immature Gran % (Auto) 4.700 H, Neut % (Auto) 67.7, Lymph % (Auto) 17.2 L, [place] % (Auto) 8.6, Eos % (Auto) 1.2, Baso % (Auto) 0.6, Absolute Neuts (auto) 6.3, Absolute Lymphs (auto) 1.60, Nucleated RBC % 0, Sodium 138, Potassium 3.9, Chloride 101, Carbon Dioxide 27.9, Anion Gap 9, BUN 17, Creatinine 0.67 L, Estim Creat Clear Calc 95.57, Est GFR (MDRD) Non-Af 98, BUN/Creatinine Ratio 25.7 H, Glucose 275 H, Calcium 8.9 02/03/25 07:51: POC Glucose 247 H 02/03/25 11:42: POC Glucose 230 H Micro: Microbiology 02/02/25 15:00 Stool C. difficile GDH Antigen & Toxins - Final 02/02/25 15:00 Stool Clostridioides difficile (PCR) - Final Assessment & Plan Assessment/Plan (1) Fracture of tibia and fibula: QUALIFIERS: Encounter type: initial encounter Fracture type: closed Laterality: right Qualified Code(s): S82.201A - Unspecified fracture of shaft of right tibia, initial encounter for closed fracture; S82.401A - Unspecified fracture of shaft of right fibula, initial encounter for closed fracture PLAN: Plan Will obtain new x-rays of the right lower extremity. If x-rays show no displacement, and if skin continues to heal following the blister over the right chopra we will consider a long-leg cast once swelling has gone down. No weightbearing on the right lower extremity. Patient's plan is to return to a skilled nursing upon discharge, patient is uncertain which skilled nursing this would be. She will follow-up in the clinic outpatient in 2 weeks. Patient is in agreement. Documented by User: Dr. Massimo Jose MD 02/03/25 20:50 HPI Consult Data Date of Consult: 02/03/25 [facility] Medical History History of ESBL E. coli infection History of pressure injury of skin Gastric reflux History of pain when walking Leg cramps Lives in skilled nursing Hx of fracture of hip Wears glasses Wears dentures Post-menopausal Depression Alcohol use Substance abuse Open wound Uses wheelchair Arthritis High cholesterol Restless legs Back pain Smoker Asthma Shortness of breath on exertion History of edema Tobacco abuse Insulin dependent diabetes mellitus Chronic ulcer of right ankle with fat layer exposed GERD (gastroesophageal reflux disease) Anxiety Schizophrenia Hyperlipidemia Insomnia Neuralgia and neuritis Spondylosis Mild asthma Cerebral vascular disease Hypertension Home Medications ?Medication ?Instructions ?Recorded ?Last Taken ?Type ondansetron HCl 4 mg tablet 4 mg PO Q6H PRN PRN Nausea 03/08/19 Unknown History prazosin 1 mg capsule 1 mg PO QHS B/P 03/08/19 01/26/25 History albuterol sulfate 2.5 mg/3 mL 2.5 mg inhalation Q4H PRN SOB 07/29/21 Unknown History (0.083 %) solution for nebulization apixaban 5 mg tablet (Eliquis) 5 mg PO BID anticoag 07/29/21 01/26/25 History lurasidone 80 mg tablet (Latuda) 80 mg PO DAILY atypical 07/29/21 01/26/25 History antipsychotic naloxegol 25 mg tablet (Movantik) 25 mg PO DAILY constipation 07/29/21 01/26/25 History acetaminophen 325 mg tablet 650 mg PO Q6H PRN PRN fever or pain 12/18/22 Unknown History benzonatate 100 mg capsule 100 mg PO Q8H PRN cough 12/18/22 Unknown History bisacodyl 5 mg tablet,delayed 5 mg PO Q8H PRN PRN constipation 12/18/22 Unknown History release (Dulcolax (bisacodyl)) cholecalciferol (vitamin D3) 125 125 mcg PO DAILY [employer] 12/18/22 01/26/25 History mcg (5,000 unit) capsule epinephrine 0.3 mg/0.3 mL 0.3 mg IM Q5-15M PRN anaphylaxis 12/18/22 Unknown History injection, auto-injector (EpiPen) flash glucose sensor (FreeStyle 12/18/22 Unknown History Cynthia 2 Sensor kit) fluticasone fur. 200 mcg-umeclid 1 inh inhalation DAILY copd 12/18/22 01/26/25 History 62.5 mcg-vilant 25 mcg inhalat.powder (Trelegy Ellipta) guaifenesin 100 mg/5 mL oral liquid 200 mg PO Q4H PRN cough 12/18/22 Unknown History ipratropium 0.5 mg-albuterol 3 mg 3 ml inhalation BID PRN shortness 12/18/22 Unknown History (2.5 mg base)/3 mL nebulization of breath soln ipratropium 20 mcg-albuterol 100 1 puff inhalation Q6H PRN 12/18/22 Unknown History mcg/actuation mist for inhalation shortness of breath or wheezing (Combivent Respimat) ipratropium bromide 21 mcg (0.03 2 spray intranasal BID DM 12/18/22 01/26/25 History %) nasal spray lisinopril 2.5 mg tablet 2.5 mg PO DAILY BP 12/18/22 01/26/25 History loratadine 10 mg tablet (Claritin) 10 mg PO DAILY Respitory 12/18/22 01/26/25 History montelukast 10 mg tablet 10 mg PO DAILY allergies 12/18/22 01/26/25 History polyethylene glycol 3350 17 17 g PO DAILY PRN constipation 12/18/22 Unknown History gram/dose oral powder (Miralax) duloxetine 60 mg capsule,delayed 60 mg PO BID mental health 01/16/23 01/26/25 History release (Cymbalta) pregabalin 100 mg capsule 100 mg PO BID pain 01/16/23 01/26/25 History Lactobacillus rhamnosus GG 10 1 cap PO BID immune health 11/27/23 01/26/25 History billion cell capsule (Culturelle) insulin lispro 100 unit/mL 1 sliding scale dose subcut TID DM 11/27/23 01/26/25 History subcutaneous pen (Humalog KwikPen (U-100) Insulin) loperamide 2 mg capsule 4 mg PO BID PRN loose stool 11/27/23 Unknown History (Anti-Diarrheal (loperamide)) carboxymethylcellulose sodium 0.5 1 drp EACH EYE BID dry eye 01/30/24 01/26/25 History % eye drops (Refresh Tears) cyclosporine 0.05 % eye drops in a 1 drp EACH EYE Q12H dry eyes 01/30/24 01/26/25 History dropperette (Restasis) atenolol 50 mg tablet 50 mg PO QDAY B/P 11/20/24 01/26/25 History clonazepam 0.5 mg tablet 0.5 mg PO 1500 PRN anxiety 11/20/24 Unknown History insulin glargine U-300 conc 300 100 unit subcut QAM DM 11/20/24 01/26/25 History unit/mL (1.5 mL) subcutaneous pen (Toujeo SoloStar U-300 Insulin) insulin glargine U-300 conc 300 90 unit subcut QHS DM 11/20/24 01/26/25 History unit/mL (3 mL) subcutaneous pen (Toujeo Max U-300 SoloStar) insulin lispro 100 unit/mL 50 unit subcut DAILY DM 11/20/24 01/26/25 History subcutaneous pen (Humalog KwikPen (U-100) Insulin) insulin lispro 100 unit/mL 54 unit subcut DINNER DM 11/20/24 01/26/25 History subcutaneous pen (Humalog KwikPen (U-100) Insulin) magnesium hydroxide 400 mg/5 mL 15 ml PO BID PRN constipation 11/20/24 Unknown History oral suspension (Milk of Magnesia) tirzepatide 7.5 mg/0.5 mL 7.5 mg subcut FR DM 11/20/24 01/26/25 History subcutaneous pen injector (Minesh) atorvastatin 40 mg tablet 40 mg PO DAILY colesteral 01/20/25 01/26/25 History cranberry 500 mg capsule 500 mg PO DAILY bladder 01/20/25 01/26/25 History famotidine 40 mg tablet 40 mg PO DAILY gerd 01/20/25 01/26/25 History olanzapine 15 mg tablet 15 mg PO QHS schizophrenia 01/20/25 01/26/25 History effective oxycodone-acetaminophen 5 mg-325 1 tab PO Q6H PRN pain 5 days #20 01/25/25 Unknown Rx mg tablet (Percocet) tabs omeprazole 40 mg capsule,delayed 40 mg PO BID Gerd 01/26/25 01/26/25 History release oxybutynin chloride 5 mg tablet 5 mg PO DAILY overactive bladder 01/26/25 01/26/25 History Allergy/AdvReac Type Severity Reaction Status Date / Time apricot Allergy Unknown PT UNSURE Verified 01/26/25 23:17 OF REACTION BCG (Bacillus Allergy Unknown Other Verified 01/26/25 23:17 Calmette-Zohra) vacc bee venom protein (honey Allergy Unknown Other Verified 01/26/25 23:17 bee) (bee sting) corn Allergy Unknown Other Verified 01/26/25 23:17 Milk Containing Products Allergy Unknown Other Verified 01/26/25 23:17 (Dairy) peas Allergy Unknown Other Verified 01/26/25 23:17 tomato Allergy Unknown Other Verified 01/26/25 23:17 Iodinated Contrast Media Allergy Hives Verified 01/26/25 23:17 (Iodinated Contrast Media - IV Dye) amoxicillin trihydrate (From AdvReac Itching Verified 01/26/25 23:17 Augmentin) hydrocodone (From Vicodin) AdvReac Unknown Verified 01/26/25 23:17 potassium clavulanate (From AdvReac Itching Verified 01/26/25 23:17 Augmentin) shellfish derived AdvReac Itching Verified 01/26/25 23:17 Surgical History History of surgery History of History of tubal ligation History of hysterectomy History of cholecystectomy History of appendectomy S/P right rotator cuff repair Social History Smoking Status: Former smoker Physical Exam Narrative Physical examination of the lower extremities shows a swollen right foot and ankle with pitting edema, patient reports this has been normal for her since her stroke approximately 10 years ago. Patient is unable to dorsiflex the right ankle which she reports has been going on also since the stroke however it has worsened since her injury. Patient is able to move the left side without any restriction. Patient is able to fire the quadriceps actively . Physical examination also shows skin discoloration over the anterior leg below the knee. There is ABD pads underneath the right lower extremity brace showed very minimal drainage. Denied any pain in her calf. Distal pulses difficult to assess dt edema, but capillary filling was wnl. No active toe movements. Lab / Micro Data 02/03/25 06:21 02/03/25 06:21 Assessment & Plan Assessment/Plan (1) Fracture of tibia and fibula: QUALIFIERS: Encounter type: initial encounter Fracture type: closed Laterality: right Qualified Code(s): S82.201A - Unspecified fracture of shaft of right tibia, initial encounter for closed fracture; S82.401A - Unspecified fracture of shaft of right fibula, initial encounter for closed fracture PLAN: Plan Reviewed Xrays & CT from last week. Repeated Xrays today. Undisplaced proximal Tibia-fibula fracture noticed. If x-rays show no displacement, and if skin continues to heal following the blister over the right chopra we will consider a long-leg cast once swelling has gone down. Discussed surgical ORIF may be necessary if fx displaces or fails to unite. Due to DM, active UTI, & skin condition over fracture at this time, it is reasonable to continue nonop management. Patient has limited motor strength in RLE dt previous stroke, and was dragging RLE at baseline when she walked prior to injury, per her own report. Pt in a knee immobilizer at this time. Recommend that she be fitted with a larger size knee immobilizer/adrianne brace that reaches mid-proximal thigh. Nonweightbearing on the right lower extremity. Patient's plan is to return to a skilled nursing upon discharge, patient is uncertain which skilled nursing this would be. She will follow-up in the clinic outpatient in 1-2 weeks. Patient is in agreement. Charges/Coding Visit Charges Inpatient E&M: 41011 Init Hosp L3
--- NOTE | 2025-02-03 15:00 | RAD_ITS ---
PROCEDURE: TIBIA FIBULA 2 VIEWS 02/03/2025 REASON FOR EXAM: RIGHT TIBIA FIBULAR FRACTURE; PLEASE INCLUDE KNEE TECHNIQUE: 4 views of the right tibia and fibula COMPARISON: Right tibia/fibula radiographs 01/25/2025. FINDINGS: Bones: Redemonstration of moderately comminuted, mildly displaced right proximal tibial metaphyseal fracture, with mild anterior angulation. Additional moderately comminuted and displaced right proximal fibular fracture. No significant interval osseous healing. Joints: Normal alignment. Mild degenerative changes. Soft tissues: Soft tissues are unremarkable. RAD/Tibia & Fibula 2 Views IMPRESSION: Stable moderately comminuted right proximal tibial and fibular fractures. No s ignificant interval osseous healing. Reading Location: [id number]
--- NOTE | 2025-02-03 15:16 | CASEMGMT ---
ELENA BERNSTEIN received call from sister Sintia. ELENA BERNSTEIN updated Sintia that patient has been accepted and approved to go to [facility]. ELENA BERNSTEIN updated Sintia that ortho is consulted and xrays are pending and waiting for patient to medically ready to discharge to [facility]. Sintia voiced understanding and appreciation. ELENA BERNSTEIN udpated Sintia that CM will update her when discharge has been placed and transportation has been arranged. Sintia had no further questions or concerns. CM will continue to follow this patient and plan for a safe discharge.
--- NOTE | 2025-02-03 16:36 | CASEMGMT ---
RN CM placed Green sheet on chart if patient should discharge later this evening. RN DAY updated PCU charge nurse and patient's nurse. ELENA BERNSTEIN updated Fred Pastor [facility].
--- NOTE | 2025-02-03 16:43 | PN_ITS ---
Subjective Subjective Patient seen and examined. She had no active complaints today. Wound care reviewed her yesterday and took care of the blister on her right leg. Review of systems otherwise negative. She is awaiting orthopedic evaluation still. Objective Data Objective Data Vital Signs: Vital Signs Temp Pulse Resp BP Pulse Ox O2 Del Method O2 Flow Rate 98.4 F 64 16 114/56 L 95 Nasal Cannula 2 02/03/25 14:05 02/03/25 14:05 02/03/25 14:05 02/03/25 14:05 02/03/25 14:05 02/03/25 14:05 02/03/25 14:05 Oxygen Flow Rate (L/min) 2 Oxygen Delivery Method Nasal Cannula Weight: 214 lb 15.211 oz Body Mass Index (BMI) 38.0 Intake & Output: Intake and Output for Last 24 Hours 02/01/25 02/02/25 02/03/25 23:59 23:59 23:59 Intake Total 650 / 650 650 / 650 Output Total 550 / 850 900 / 900 Balance 100 / -200 -250 / -250 Lab / Micro Data 02/03/25 06:21 02/03/25 06:21 Labs: Laboratory Results - last 24 hr 02/02/25 16:26: POC Glucose 263 H 02/02/25 22:18: POC Glucose 266 H 02/03/25 06:21: WBC 9.3, RBC 3.33 L, Hgb 10.0 L, Hct 30.5 L, MCV 91.6, MCH 30.0, MCHC 32.8, RDW Std Deviation 49.2 H, RDW Coeff of Gael 14.8 H, Plt Count 283, MPV 9.6, Immature Gran % (Auto) 4.700 H, Neut % (Auto) 67.7, Lymph % (Auto) 17.2 L, Harlan % (Auto) 8.6, Eos % (Auto) 1.2, Baso % (Auto) 0.6, Absolute Neuts (auto) 6.3, Absolute Lymphs (auto) 1.60, Nucleated RBC % 0, Sodium 138, Potassium 3.9, Chloride 101, Carbon Dioxide 27.9, Anion Gap 9, BUN 17, Creatinine 0.67 L, Estim Creat Clear Calc 95.57, Est GFR (MDRD) Non-Af 98, BUN/Creatinine Ratio 25.7 H, G lucose 275 H, Calcium 8.9 02/03/25 07:51: POC Glucose 247 H 02/03/25 11:42: POC Glucose 230 H Micro: Microbiology 02/02/25 15:00 Stool C. difficile GDH Antigen & Toxins - Final 02/02/25 15:00 Stool Clostridioides difficile (PCR) - Final 01/27/25 00:33 Blood Culture (Wb) - Anticubital Left Blood Culture - Final No growth in 5 days. 01/26/25 23:38 Blood Culture (Wb) - Anticubital Left Blood Culture - Final No growth in 5 days. 01/26/25 23:50 Urine Catheter - Wilhelm Urine Culture - Final ESBL Escherichia coli Radiography Diagnostic Testing: Radiology Impression Tibia/Fibula X-Ray 02/03/25 15:00 IMPRESSION: Stable moderately comminuted right proximal tibial and fibular fractures. No significant interval osseous healing. Reading [facility] Physical Exam Const alert, oriented x3 and no apparent distress Constitutional Narrative: Patient is morbidly obese a General Appearance: cooperative Orientation / Consciousness: lethargic HEENT normocephalic, head/scalp atraumatic, hearing grossly normal bilaterally, moist oral mucous membranes and oropharynx normal Eyes PERRL and EOMs intact bilaterally Neck no lymphadenopathy and supple Lymph Lymphatic: no lymphadenopathy noted and no lymphedema noted Resp normal respiratory effort, no retractions, no use of accessory muscles and clear to auscultation bilaterally Resp Narrative: on 2L of oxygen Cardio regular rate, regular rhythm, S1 normal heart sound, S2 normal heart sound and no murmurs GI normal to inspection, nondistended, normoactive bowel sounds, soft to palpation, non-tender and non-distended GI Narrative: pain pump in situ over RLQ. Extremity Extremity Narrative: RLE in leg brace. intact dressing over knee Skin Skin Narrative: as under extremities Neuro CN's II-XII intact bilaterally, no focal motor deficits, no sensory deficits noted and deep tendon reflexes 2+ bilaterally Neuro Narrative: Patient is lethargic but arousable. Motor Exam: general weakness Psych thought process normal and cooperative Mood & Affect: flat affect Assessment & Plan Assessment/Plan (1) Fracture of tibia and fibula: (2) UTI (urinary tract infection): (3) Acute metabolic encephalopathy: PLAN: Plan #Acute metabolic and toxic encephalopathy * Due to UTI and accidental drug overdose. * Patient has pain pump in place and had apparently also been given oral oxycodone-acetaminophen for recent tibia-fibula fracture. It is therefore thought that she had an accidental drug overdose. * She was also found to have UTI on admission. Was started on ceftriaxone. ID on board. Urine cultures positive for ESBL E. coli so antibiotics transitioned to IV meropenem. * Her mentation has improved. She is awaiting pain management evaluation today. As stated her sister does not think she needs the pain pump but patient states that she has been on it for 20 years and thinks she needs it. * PT/OT on board. Fall precautions * wilhelm catheter dc'd * wbc today is down to 9..3 * #Recent tibia-fibula fracture * RLE immobilised in a brace. * DUplex was negative for DVT * Orthopedics consulted. I contacted Dr Jose who is price economist today. He reviewed patient and said he ordered repeat xray of the RLE which showed stable moderately comminuted right proximal tibiial and fibular fractures. * PT/OT on board. Wound consult due to the blister. * fall precautions. * Per orthopedics patient stable to be discharged to assisted with a larger knee brace. * #Hyperkalemia: resolved. #Chronic pain syndrome: * pain pump in situ. * Pain management evaluated patient and pain management doctor recommended that patient and the family could seek opinion from a tertiary facility if they did not think she still needed the pain pump. #Type 2 diabetes mellitus * on lantus. ISS. Accuchecks ACHS * #Hypertension: continue BP meds #Dyslipidemia: n statin. #Anticoagulant use: on eliquis. Reason for usage is unclear. #DVT prophylaxis: on lovenox therapeutic dose to substitute for eliquis usage. Disposition: * Patient ready for discharge. However she needs a larger knee brace and so we will have to figure out tomorrow how she should get the larger knee brace in the assisted prior to discharge. * For this reason patient not discharged today. * Will discuss with case management tomorrow and discharge tomorrow. Charges/Coding Visit Charges Inpatient E&M: 14183 Subs Hosp L2
[2025-02-03 20:10] VITALS: PULSE 68; RESP 18
[2025-02-03 22:21] VITALS: BP 105/56; PULSE 74; RESP 16; TEMP 36.4; O2SAT 94
[2025-02-04 04:34] VITALS: BP 119/54; PULSE 70; RESP 16; TEMP 37.9; O2SAT 96
[2025-02-04 04:53] VITALS: BMI 38.5
[2025-02-04 06:20] LABS: Hematocrit 30.7 % (37-47); Hemoglobin 10.2 g/dL (12.0-15.0); Immature Granulocytes Count 0.390 X10^3/uL (0.0-0.0); Mean Corp Hgb Conc 33.2 g/dL (32-36); Mean Corpuscular Volume 91.4 fL (81-99); Mean Platelet Vol. 9.5 fl (6.2-12.0); NRBC Flagged by Analyzer 0 % (0-5); Platelet Count 313 K/mm3 (150-450); RBC Distribution Width CV 14.6 % (11.6-14.6); RBC Distribution Width SD 48.2 fl (35.1-43.9); Red Blood Count 3.36 M/mm3 (4.2-5.4); White Blood Count 9.8 K/mm3 (4.4-11.0)
[2025-02-04 06:37] VITALS: PULSE 68; RESP 16; O2SAT 97
[2025-02-04] MEDS: Budesonide Respules 0.5 MG/2 ML AMPUL.NEB. INHALATION (06:37)
[2025-02-04 06:54] LABS: Anion Gap 9 (5-15); BUN 14 mg/dL (4-19); BUN/Creat Ratio 22.6 RATIO (10-20); Calcium,Total 8.7 mg/dL (7.6-11.0); Carbon Dioxide 27.6 mmol/L (21.0-32.0); Chloride 99 mmol/L (98-108); Estimated Creatinine Clearance 100.67 ml/min (50-250); Glucose 389 mg/dL (70-99); Potassium 4.1 mmol/L (3.3-5.1)
[2025-02-04 08:11] VITALS: BP 111/79; PULSE 57; RESP 16; TEMP 36.3; O2SAT 95
[2025-02-04] MEDS: Glycerin/Hypromellose/PEG400 15 ml Bottle 1 DRP EACH EYE (08:18)
[2025-02-04] MEDS: LURASIDONE HCL 40 MG TABLET 80 MG PO (08:20)
[2025-02-04] MEDS: APIXABAN 5 MG TABLET PO (08:21)
[2025-02-04] MEDS: Cholecalciferol (Vit D3) 125 MCG CAPSULE (5,000 UNITS) PO (08:21)
[2025-02-04] MEDS: Insulin Glargine-YFGN 100 UNIT/ML Pen 40 UNIT SC (08:21)
--- NOTE | 2025-02-04 09:11 | VDLE_ITS ---
Reason For Study Reason For Study: RLE Swelling RIGHT GSV is normal. CFV is compressible, spontaneous, phasic, competent and demonstrates normal augmentation. FV is compressible, spontaneous, phasic, competent and demonstrates normal augmentation. POP V is compressible, spontaneous, phasic, competent and demonstrates normal augmentation. T/P Trunk is compressible. PTV is compressible. RT PerV is compressible. Procedure This is a venous duplex using B-mode, color flow and spectral Doppler. Exam performed portable in patient room. Limited views were obtained due to patient positioning and immobility. A preliminary report was called and/or faxed to PCU shaker out Amanda. VL/Venous Duplex US, Unilateral Interpretation Summary Deep veins of the right lower extremity are patent and compressible segmentally . There is no evidence of right lower extremity deep vein thrombosis. Valvular competence appears intact within the p roximal deep venous system on the right . The right great saphenous vein appears patent and compressible segmentally. Ordering Physician: Joan Carter Referring Physician: Mariah Atkinson Performed By: Eric Olivia RVT
[2025-02-04 13:08] VITALS: PULSE 68; RESP 16
--- NOTE | 2025-02-04 13:10 | TREXTCAR_ITS ---
Diet Diet Order/Speech Therapy: INPATIENT Hospital Diet / Speech Therapy Order(s) 01/27/25 12:47 Diet: Consistent Carb - Calorie Controlled Food consistency:: Regular Liquid Consistency:: Regular/Thin Diet Comments: *Allergies: milk/dairy, peas, corn, tomato, shellfish, apricot, shellfish* How many daily calories?: 1800 calorie Routine Orders/Code Status Enema Type: Fleetz Enema Frequency: Daily PRN DC O2, CPAP, BIPAP needs Home O2 Discharge instructions: No Wound(s) right ankle: Wound Type: healing wound R Jamison: Wound Type: fracture blister Dressing Change: dry dressing right heel: Wound Type: Pressure Injury Therapies Weight Bearing: Non weight bearing (nonweight bearing on RLE) Physical Therapy: Eval and Treat Occupational Therapy: Eval and Treat Problem/Diagnosis (1) Fracture of tibia and fibula: Status: Acute Code(s): S82.209A - Unspecified fracture of shaft of unspecified tibia, initial encounter for closed fracture; S82.409A - Unspecified fracture of shaft of unspecified fibula, initial encounter for closed fracture Plan #Acute metabolic and toxic encephalopathy * Due to UTI and accidental drug overdose. * Patient has pain pump in place and had apparently also been given oral oxycodone-acetaminophen for recent tibia-fibula fracture. It is therefore thought that she had an accidental drug overdose. * She was also found to have UTI on admission. Was started on ceftriaxone. ID on board. Urine cultures positive for ESBL E. coli so antibiotics transitioned to IV meropenem. * Her mentation has improved. She is awaiting pain management evaluation today. As stated her sister does not think she needs the pain pump but patient states that she has been on it for 20 years and thinks she needs it. * PT/OT on board. Fall precautions * wilhelm catheter dc'd * wbc today is down to 9..3 * #Recent tibia-fibula fracture * RLE immobilised in a brace. * DUplex was negative for DVT * Orthopedics consulted. I contacted Dr Jose who is telecommunications switch technician today. He reviewed patient and said he ordered repeat xray of the RLE which showed stable moderately comminuted right proximal tibiial and fibular fractures. * PT/OT on board. Wound consult due to the blister. * fall precautions. * Per orthopedics patient stable to be discharged to senior care with a larger knee brace. * #Hyperkalemia: resolved. #Chronic pain syndrome: * pain pump in situ. * Pain management evaluated patient and pain management doctor recommended that patient and the family could seek opinion from a tertiary facility if they did not think she still needed the pain pump. #Type 2 diabetes mellitus * on lantus. ISS. Accuchecks ACHS * #Hypertension: continue BP meds #Dyslipidemia: n statin. #Anticoagulant use: on eliquis. Reason for usage is unclear. #DVT prophylaxis: on lovenox therapeutic dose to substitute for eliquis usage. Disposition: * Patient ready for discharge. However she needs a larger knee brace and so we will have to figure out tomorrow how she should get the larger knee brace in the senior care prior to discharge. * For this reason patient not discharged today. * Will discuss with case management tomorrow and discharge tomorrow. Allergies/Procedures Done in Hospital Allergies apricot Allergy (Unknown, Verified 01/26/25 23:17) PT UNSURE OF REACTION BCG (Bacillus Calmette-Zohra) vacc Allergy (Unknown, Verified 01/26/25 23:17) Other bee venom protein (honey bee) (bee sting) Allergy (Unknown, Verified 01/26/25 23:17) Other corn Allergy (Unknown, Verified 01/26/25 23:17) Other Milk Containing Products (Dairy) Allergy (Unknown, Verified 01/26/25 23:17) Other peas Allergy (Unknown, Verified 01/26/25 23:17) Other tomato Allergy (Unknown, Verified 01/26/25 23:17) Other Iodinated Contrast Media (Iodinated Contrast Media - IV Dye) Allergy (Verified 01/26/25 23:17) Hives amoxicillin trihydrate (From Augmentin) Adverse Reaction (Verified 01/26/25 23:17) Itching hydrocodone (From Vicodin) Adverse Reaction (Verified 01/26/25 23:17) Unknown potassium clavulanate (From Augmentin) Adverse Reaction (Verified 01/26/25 23:17) Itching shellfish derived Adverse Reaction (Verified 01/26/25 23:17) Itching Procedures: None Type of Care/Length of Stay Estimated LOS: Convalescent Care Less Than 30 days Type of Care Needed: Skilled Rehab Potential: Fair Prognosis: Fair Additional Orders/Day of Discharge Day of Discharge: 02/04/25 Dietary and Speech Recommendations Dietitian Recommendations/Changes: Will continue 1800 calorie, consistent carbohydrate diet as ordered; no ONS at this time. Diet instruction as appropriate and as pt willing; blood glucose 300-400's. Discharge Plan Admission Admit Date/Time: 01/27/25 01:25 Primary Reason for Your Visit: acute encephalopathy due to UTI Attending Provider: Joan Carter Primary Care Provider: Mariah Atkinson Consulting Providers: Suresh Pettit; Jaleel Robbins; Butch Chow; Lauren Ruelas; Suresh Banegas; Joan Carter; Massimo Jose Instructions Patient Instructions: ED ALOC, ED Confusion Additional Instructions / Restrictions: Will need a bigger knee brace, per orthopedic recommendation. Discharge Orders/Prescriptions Prescriptions: Continued acetaminophen 325 mg tablet 650 mg PO Q6H PRN PRN (Reason: fever or pain) benzonatate 100 mg capsule 100 mg PO Q8H PRN (Reason: cough) loratadine [Claritin] 10 mg tablet 10 mg PO DAILY Combivent Respimat 20-100 mcg/actuation mist 1 puff inhalation Q6H PRN (Reason: shortness of breath or wheezing) bisacodyl [Dulcolax (bisacodyl)] 5 mg tablet,delayed release (DR/EC) 5 mg PO Q8H PRN PRN (Reason: constipation) epinephrine [EpiPen] 0.3 mg/0.3 mL auto-injector 0.3 mg IM Q5-15M PRN (Reason: anaphylaxis) Rx Instructions: do not exceed 3 doses per episode (DME) FreeStyle Cynthia 2 Sensor Kit See Rx Instructions .Route Rx Instructions: As directed guaifenesin 100 mg/5 mL liquid 200 mg PO Q4H PRN (Reason: cough) ipratropium bromide 21 mcg (0.03 %) spray,non-aerosol 2 spray intranasal BID Rx Instructions: administer into each nostril ipratropium-albuterol 0.5 mg-3 mg(2.5 mg base)/3 mL solution for nebulization 3 ml inhalation BID PRN (Reason: shortness of breath) lisinopril 2.5 mg tablet 2.5 mg PO DAILY polyethylene glycol 3350 [Miralax] 17 gram/dose powder 17 g PO DAILY PRN (Reason: constipation) montelukast 10 mg tablet 10 mg PO DAILY Trelegy Ellipta 200-62.5-25 mcg blister with device 1 inh inhalation DAILY cholecalciferol (vitamin D3) 125 mcg (5,000 unit) capsule 125 mcg PO DAILY insulin glargine U-300 conc [Toujeo SoloStar U-300 Insulin] 300 unit/mL (1.5 mL) insulin pen 100 unit subcut QAM duloxetine [Cymbalta] 60 mg capsule,delayed release(DR/EC) 60 mg PO BID pregabalin 100 mg capsule 100 mg PO BID atenolol 50 mg tablet 50 mg PO QDAY clonazepam 0.5 mg tablet 0.5 mg PO 1500 PRN (Reason: anxiety) magnesium hydroxide [Milk of Magnesia] 400 mg/5 mL suspension 15 ml PO BID PRN (Reason: constipation) Mounjaro 7.5 mg/0.5 mL pen injector 7.5 mg subcut FR prazosin 1 MG capsule 1 mg PO QHS ondansetron HCl 4 MG tablet 4 mg PO Q6H PRN PRN (Reason: Nausea) albuterol sulfate 2.5 mg /3 mL (0.083 %) Solution For Nebulization 2.5 mg INHALATION Q4H PRN (Reason: SOB) lurasidone [Latuda] 80 mg Tablet 80 mg PO DAILY Eliquis 5 mg Tablet 5 mg PO BID Movantik 25 mg Tablet 25 mg PO DAILY cyclosporine [Restasis] 0.05 % dropperette 1 drp EACH EYE Q12H carboxymethylcellulose sodium [Refresh Tears] 0.5 % drops 1 drp EACH EYE BID insulin lispro [Humalog KwikPen Insulin] 100 unit/mL insulin pen 50 unit subcut DAILY insulin lispro [Humalog KwikPen Insulin] 100 unit/mL insulin pen 54 unit subcut DINNER insulin glargine U-300 conc [Toujeo Max U-300 SoloStar] 300 unit/mL (3 mL) insulin pen 90 unit subcut QHS omeprazole 40 mg capsule,delayed release(DR/EC) 40 mg PO BID oxybutynin chloride 5 mg tablet 5 mg PO DAILY Culturelle 10 billion cell capsule 1 cap PO BID insulin lispro [Humalog KwikPen Insulin] 100 unit/mL insulin pen 1 sliding scale dose subcut TID Rx Instructions: PRIOR TO MEALS loperamide [Anti-Diarrheal (loperamide)] 2 mg capsule 4 mg PO BID PRN (Reason: loose stool) atorvastatin 40 mg tablet 40 mg PO DAILY cranberry 500 mg capsule 500 mg PO DAILY Rx Instructions: administer with a meal famotidine 40 mg tablet 40 mg PO DAILY olanzapine 15 mg tablet 15 mg PO QHS oxycodone-acetaminophen [Percocet] 5-325 mg tablet 1 tab PO Q6H PRN (Reason: pain) 5 Days Qty: 20 0RF Referrals / Follow Up: Massimo Jose MD [Med Staff - Active Staff] - Within 2 Weeks Mariah Atkinson MD [Primary Care Provider] - Within 1 Week Disposition Disposition (needs filled in before D/C Order can be placed): Shelter Facility (1) Fracture of tibia and fibula Qualifiers: Encounter type: initial encounter Fracture type: closed Laterality: right Qualified Code(s): S82.201A - Unspecified fracture of shaft of right tibia, initial encounter for closed fracture; S82.401A - Unspecified fracture of shaft of right fibula, initial encounter for closed fracture
--- NOTE | 2025-02-04 13:17 | DS.PCM_ITS ---
Providers Date of Admission: 01/27/25 Date of Discharge: 02/05/25 Primary Care Physician: Dr. Mariah Atkinson MD Consultations 01/27/25 21:31 Consult: Onc/Wound/supply coordinator Routine Comment: Reason for Consult:: blister to right chopra 01/28/25 09:23 Consult: Infectious Disease Routine Consulting Provider: Jaleel Robbins Reason for Consult: UTI with ESBL Coli EMERGENT Consult: No MD Notified: Yes Date Notified: 01/28/25 Time Notified: 09:23 Method of Notification: Text 01/29/25 11:14 Consult: Pain Management Routine Consulting Provider: Lauren Ruelas Reason for Consult: Questionable pain pump mouth EMERGENT Consult: No MD Notified: Yes Date Notified: 01/29/25 Time Notified: 11:34 Method of Notification: office notified 01/29/25 11:19 Consult: Orthopedics Routine Consulting Provider: Butch Chow Reason for Consult: Right tib-fib fracture EMERGENT Consult: No MD Notified: Yes Date Notified: 01/29/25 Time Notified: 11:19 Method of Notification: Text 02/03/25 08:33 Consult: Orthopedics Routine Consulting Provider: Massimo Jose Reason for Consult: RLE tibia and fibular fracture EMERGENT Consult: No MD Notified: Yes Date Notified: 02/03/25 Time Notified: 08:33 Method of Notification: Text Reason For Visit: SEPSIS 2/2 UTI, TOXIC/METABOLIC ENCEPHALOPATHY Diagnosis Discharge Diagnosis (1) Fracture of tibia and fibula: Status: Acute Code(s): S82.209A - Unspecified fracture of shaft of unspecified tibia, initial encounter for closed fracture; S82.409A - Unspecified fracture of shaft of unspecified fibula, initial encounter for closed fracture Qualifiers: Encounter type: initial encounter Fracture type: closed Laterality: r ight Qualified Code(s): S82.201A - Unspecified fracture of shaft of right tibia, initial encounter for closed fracture; S82.401A - Unspecified fracture of shaft of right fibula, initial encounter for closed fracture Plan #Acute metabolic and toxic encephalopathy * Due to UTI and accidental drug overdose. * Patient has pain pump in place and had apparently also been given oral oxycodone-acetaminophen for recent tibia-fibula fracture. It is therefore thought that she had an accidental drug overdose. * She was also found to have UTI on admission. Was started on ceftriaxone. ID on board. Urine cultures positive for ESBL E. coli so antibiotics transitioned to IV meropenem. * Her mentation has improved. She is awaiting pain management evaluation today. As stated her sister does not think she needs the pain pump but patient states that she has been on it for 20 years and thinks she needs it. * PT/OT on board. Fall precautions * wilhelm catheter dc'd * wbc today is down to 9..3 * #Recent tibia-fibula fracture * RLE immobilised in a brace. * DUplex was negative for DVT * Orthopedics consulted. I contacted Dr Jose who is inspection clerk today. He reviewed patient and said he ordered repeat xray of the RLE which showed stable moderately comminuted right proximal tibiial and fibular fractures. * PT/OT on board. Wound consult due to the blister. * fall precautions. * Per orthopedics patient stable to be discharged to half-way with a larger knee brace. * #Hyperkalemia: resolved. #Chronic pain syndrome: * pain pump in situ. * Pain management evaluated patient and pain management doctor recommended that patient and the family could seek opinion from a tertiary facility if they did not think she still needed the pain pump. #Type 2 diabetes mellitus * on lantus. ISS. Accuchecks ACHS * #Hypertension: continue BP meds #Dyslipidemia: n statin. #Anticoagulant use: on eliquis. Reason for usage is unclear. #DVT prophylaxis: on lovenox therapeutic dose to substitute for eliquis usage. Disposition: * Patient ready for discharge. However she needs a larger knee brace and so we will have to figure out tomorrow how she should get the larger knee brace in the half-way prior to discharge. * For this reason patient not discharged today. * Will discuss with case management tomorrow and discharge tomorrow. Medications at Discharge Home Medications ondansetron HCl 4 mg tablet 4 mg PO Q6H PRN PRN Nausea 03/08/19 prazosin 1 mg capsule 1 mg PO QHS B/P 03/08/19 albuterol sulfate 2.5 mg/3 mL (0.083 %) solution for nebulization 2.5 mg inhalation Q4H PRN SOB 07/29/21 apixaban 5 mg tablet (Eliquis) 5 mg PO BID anticoag 07/29/21 lurasidone 80 mg tablet (Latuda) 80 mg PO DAILY atypical antipsychotic 07/29/21 naloxegol 25 mg tablet (Movantik) 25 mg PO DAILY constipation 07/29/21 acetaminophen 325 mg tablet 650 mg PO Q6H PRN PRN fever or pain 12/18/22 benzonatate 100 mg capsule 100 mg PO Q8H PRN cough 12/18/22 bisacodyl 5 mg tablet,delayed release (Dulcolax (bisacodyl)) 5 mg PO Q8H PRN PRN constipation 12/18/22 cholecalciferol (vitamin D3) 125 mcg (5,000 unit) capsule 125 mcg PO DAILY gen health 12/18/22 epinephrine 0.3 mg/0.3 mL injection, auto-injector (EpiPen) 0.3 mg IM Q5-15M PRN anaphylaxis 12/18/22 flash glucose sensor ([employer] Cynthia 2 Sensor kit) 12/18/22 fluticasone fur. 200 mcg-umeclid 62.5 mcg-vilant 25 mcg inhalat.powder (Trelegy Ellipta) 1 inh inhalation DAILY copd 12/18/22 guaifenesin 100 mg/5 mL oral liquid 200 mg PO Q4H PRN cough 12/18/22 ipratropium 0.5 mg-albuterol 3 mg (2.5 mg base)/3 mL nebulization soln 3 ml inhalation BID PRN shortness of breath 12/18/22 ipratropium 20 mcg-albuterol 100 mcg/actuation mist for inhalation (Combivent Respimat) 1 puff inhalation Q6H PRN shortness of breath or wheezing 12/18/22 ipratropium bromide 21 mcg (0.03 %) nasal spray 2 spray intranasal BID DM 12/18/22 lisinopril 2.5 mg tablet 2.5 mg PO DAILY BP 12/18/22 loratadine 10 mg tablet (Claritin) 10 mg PO DAILY Respitory 12/18/22 montelukast 10 mg tablet 10 mg PO DAILY allergies 12/18/22 polyethylene glycol 3350 17 gram/dose oral powder (Miralax) 17 g PO DAILY PRN constipation 12/18/22 duloxetine 60 mg capsule,delayed release (Cymbalta) 60 mg PO BID mental health 01/16/23 pregabalin 100 mg capsule 100 mg PO BID pain 01/16/23 Lactobacillus rhamnosus GG 10 billion cell capsule (Culturelle) 1 cap PO BID immune health 11/27/23 insulin lispro 100 unit/mL subcutaneous pen (Humalog KwikPen (U-100) Insulin) 1 sliding scale dose subcut TID DM 11/27/23 loperamide 2 mg capsule (Anti-Diarrheal (loperamide)) 4 mg PO BID PRN loose stool 11/27/23 carboxymethylcellulose sodium 0.5 % eye drops (Refresh Tears) 1 drp EACH EYE BID dry eye 01/30/24 cyclosporine 0.05 % eye drops in a dropperette (Restasis) 1 drp EACH EYE Q12H dry eyes 01/30/24 atenolol 50 mg tablet 50 mg PO QDAY B/P 11/20/24 clonazepam 0.5 mg tablet 0.5 mg PO 1500 PRN anxiety 11/20/24 insulin glargine U-300 conc 300 unit/mL (1.5 mL) subcutaneous pen (Tou[employer] SoloStar U-300 Insulin) 100 unit subcut QAM DM 11/20/24 insulin glargine U-300 conc 300 unit/mL (3 mL) subcutaneous pen (Toujeo Max U- 300 SoloStar) 90 unit subcut QHS DM 11/20/24 insulin lispro 100 unit/mL subcutaneous pen (Humalog KwikPen (U-100) Insulin) 50 unit subcut DAILY DM 11/20/24 insulin lispro 100 unit/mL subcutaneous pen (Humalog KwikPen (U-100) Insulin) 54 unit subcut DINNER DM 11/20/24 magnesium hydroxide 400 mg/5 mL oral suspension (Milk of Magnesia) 15 ml PO BID PRN constipation 11/20/24 tirzepatide 7.5 mg/0.5 mL subcutaneous pen injector (Mounjaro) 7.5 mg subcut FR DM 11/20/24 atorvastatin 40 mg tablet 40 mg PO DAILY colesteral 01/20/25 cranberry 500 mg capsule 500 mg PO DAILY bladder 01/20/25 famotidine 40 mg tablet 40 mg PO DAILY gerd 01/20/25 olanzapine 15 mg tablet 15 mg PO QHS schizophrenia effective 01/20/25 oxycodone-acetaminophen 5 mg-325 mg tablet (Percocet) 1 tab PO Q6H PRN pain 5 days #20 tabs 01/25/25 omeprazole 40 mg capsule,delayed release 40 mg PO BID Gerd 01/26/25 oxybutynin chloride 5 mg tablet 5 mg PO DAILY overactive bladder 01/26/25 PAIN PUMP (INFORMATIONAL USE ONLY-PATIENT HAS MORPHINE PUMP) back pain, started by Dr. Ruelas 02/04/25 Hospital Course Operations None Procedures None Summary of Care Provided Minutes Spent on Discharge: 45 Hospital Course: Patient is a 64 y/o female with an extensive PMH as outlined who was admitted via the ED on 02/05/2025 with a complaint of altered mental status. She was brought in from SNF after being found confused. She had been taking oxycodone- acetaminopen in addition to her pain pump and subsequently had altered mental status. On admission she was febrile, with temp of 100.4F and leucocytosis of 15K and left shift of 1.8%. Urinalysis showed evidence of acute cystitis. Potassium was elevated at 5.4 and history of mechanical fall with resultant proximal right tibial fibular fracture. She was admitted to the ICU and started on IV ceftriaxone for UTI. Her pain meds were also held. Infectious diseases was consulted as urine culture grew ESBL E. coli. Antibiotics were switched to meropenem and she had a total of 5 days of meropenem. She had duplex of the right lower extremity which was negative for any DVT. Wound care was also consulted. Her encephalopathy improved and her mentation improved to normal. Patient's family was concerned about her being on pain medication as well as the pain pump that was in situ. However patient says she had had a pain pump in place for about 20 years and did not want to stop using it. Pain management was consulted. Dr. Davidson saw patient and recommended continuation of the pain pump and said if patient and her family wanted otherwise they could seek an opinion from a tertiary facility. Orthopedics reviewed patient and recommended increasing the size of her right knee brace and she was to follow-up with them on outpatient basis. Patient [facility] facility on [facility]25. She is to follow-up with her primary care doctor and with orthopedic surgery as well as pain management. Patient seen and examined prior to discharge. She felt well and had no complaints. She had an uneventful night. Review of symptoms otherwise negative. Labs and vitals reviewed. Home medication reviewed and reconciled. Of note, her home percodet was discontinued at discharge due to her having the pain pump in place. Physical Exam Const alert, oriented x3 and no apparent distress Constitutional Narrative: Patient is morbidly obese General Appearance: cooperative and comfortable Orientation / Consciousness: awake HEENT normocephalic, head/scalp atraumatic, hearing grossly normal bilaterally, moist oral mucous membranes and oropharynx normal Mouth: oral and palatal mucosa normal Eyes PERRL and EOMs intact bilaterally Neck no lymphadenopathy and supple Lymph Lymphatic: no lymphadenopathy noted and no lymphedema noted Resp normal respiratory effort, no retractions, no use of accessory muscles and clear to auscultation bilaterally Resp Narrative: on 2L of oxygen Cardio regular rate, regular rhythm, S1 normal heart sound, S2 normal heart sound and no murmurs GI normal to inspection, nondistended, normoactive bowel sounds, soft to palpation, non-tender and non-distended GI Narrative: pain pump in situ over RLQ. Extremity Extremity Narrative: RLE in leg brace. intact dressing over knee Skin Skin Narrative: as under extremities Neuro oriented x3, CN's II-XII intact bilaterally, moves all extremities, no focal motor deficits, no sensory deficits noted and deep tendon reflexes 2+ bilaterally Sensorium / Orientation: awake Motor Exam: general weakness Psych thought process normal and cooperative Mood & Affect: flat affect Weight / BMI Weight Weight: 217 lb 6.012 oz Body Mass Index (BMI) 38.5 ABG / Lab / Microbiology Data 02/04/25 05:46 02/04/25 05:46 Laboratory: Laboratory Results - last 24 hr 02/04/25 16:34: POC Glucose 309 H Microbiology: Microbiology 02/02/25 15:00 Stool C. difficile GDH Antigen & Toxins - Final 02/02/25 15:00 Stool Clostridioides difficile (PCR) - Final 01/27/25 00:33 Blood Culture (Wb) - Anticubital Left Blood Culture - Final No growth in 5 days. 01/26/25 23:38 Blood Culture (Wb) - Anticubital Left Blood Culture - Final No growth in 5 days. 01/26/25 23:50 Urine Catheter - Wilhelm Urine Culture - Final ESBL Escherichia coli Radiography Diagnostic Testing: Radiology Impression Venous Doppler Study 02/04/25 09:11 Interpretation Summary Deep veins of the right lower extremity are patent and compressible segmentally. There is no evidence of right lower extremity deep vein thrombosis. Valvular competence appears intact within the proximal deep venous system on the right . The right great saphenous vein appears patent and compressible segmentally. Ordering Physician: Joan Carter Referring Physician: Mariah Atkinson Performed By: Eric Olivia RVT D/C Instructions Weight Bearing Status: No weight bearing (nonweight bearing on RLE until cleared by orthopedics) Call your doctor if you observe: Fever of 101 or Higher, Shortness of breath, Dizziness, Swelling in the ankles, Chest pain and Uncontrolled pain DC O2, CPAP, BIPAP Needs Home O2 Discharge instructions: No DC home with Oxygen: No Meaningful Use Info Meaningful Use Meaningful Use Diagnoses (Choose all that apply): None applicable Discharge Plan Admission Admit Date/Time: 01/27/25 01:25 Primary Reason for Your Visit: acute encephalopathy due to UTI Attending Provider: Joan Carter Primary Care Provider: Mariah Atkinson Consulting Providers: Suresh Pettit; Jaleel Robbins; Butch Chow; Lauren Ruelas; Suresh Banegas; Joan Carter; aMssimo Jose Instructions Patient Instructions: ED ALOC, ED Confusion Additional Instructions / Restrictions: Will need a bigger knee brace, per orthopedic recommendation. Discharge Orders/Prescriptions Prescriptions: Continued acetaminophen 325 mg tablet 650 mg PO Q6H PRN PRN (Reason: fever or pain) benzonatate 100 mg capsule 100 mg PO Q8H PRN (Reason: cough) loratadine [Claritin] 10 mg tablet 10 mg PO DAILY Combivent Respimat 20-100 mcg/actuation mist 1 puff inhalation Q6H PRN (Reason: shortness of breath or wheezing) bisacodyl [Dulcolax (bisacodyl)] 5 mg tablet,delayed release (DR/EC) 5 mg PO Q8H PRN PRN (Reason: constipation) epinephrine [EpiPen] 0.3 mg/0.3 mL auto-injector 0.3 mg IM Q5-15M PRN (Reason: anaphylaxis) Rx Instructions: do not exceed 3 doses per episode (DME) [employer] Cynthia 2 Sensor Kit See Rx Instructions .Route Rx Instructions: As directed guaifenesin 100 mg/5 mL liquid 200 mg PO Q4H PRN (Reason: cough) ipratropium bromide 21 mcg (0.03 %) spray,non-aerosol 2 spray intranasal BID Rx Instructions: administer into each nostril ipratropium-albuterol 0.5 mg-3 mg(2.5 mg base)/3 mL solution for nebulization 3 ml inhalation BID PRN (Reason: shortness of breath) lisinopril 2.5 mg tablet 2.5 mg PO DAILY polyethylene glycol 3350 [Miralax] 17 gram/dose powder 17 g PO DAILY PRN (Reason: constipation) montelukast 10 mg tablet 10 mg PO DAILY Trelegy Ellipta 200-62.5-25 mcg blister with device 1 inh inhalation DAILY cholecalciferol (vitamin D3) 125 mcg (5,000 unit) capsule 125 mcg PO DAILY insulin glargine U-300 conc [[employer] SoloStar U-300 Insulin] 300 unit/mL (1.5 mL) insulin pen 100 unit subcut QAM duloxetine [Cymbalta] 60 mg capsule,delayed release(DR/EC) 60 mg PO BID pregabalin 100 mg capsule 100 mg PO BID atenolol 50 mg tablet 50 mg PO QDAY clonazepam 0.5 mg tablet 0.5 mg PO 1500 PRN (Reason: anxiety) magnesium hydroxide [Milk of Magnesia] 400 mg/5 mL suspension 15 ml PO BID PRN (Reason: constipation) Mounjaro 7.5 mg/0.5 mL pen injector 7.5 mg subcut FR prazosin 1 MG capsule 1 mg PO QHS ondansetron HCl 4 MG tablet 4 mg PO Q6H PRN PRN (Reason: Nausea) albuterol sulfate 2.5 mg /3 mL (0.083 %) Solution For Nebulization 2.5 mg INHALATION Q4H PRN (Reason: SOB) lurasidone [Latuda] 80 mg Tablet 80 mg PO DAILY Eliquis 5 mg Tablet 5 mg PO BID Movantik 25 mg Tablet 25 mg PO DAILY cyclosporine [Restasis] 0.05 % dropperette 1 drp EACH EYE Q12H carboxymethylcellulose sodium [Refresh Tears] 0.5 % drops 1 drp EACH EYE BID insulin lispro [Humalog KwikPen Insulin] 100 unit/mL insulin pen 50 unit subcut DAILY insulin lispro [Humalog KwikPen Insulin] 100 unit/mL insulin pen 54 unit subcut DINNER insulin glargine U-300 conc [[employer] Max U-300 SoloStar] 300 unit/mL (3 mL) insulin pen 90 unit subcut QHS omeprazole 40 mg capsule,delayed release(DR/EC) 40 mg PO BID oxybutynin chloride 5 mg tablet 5 mg PO DAILY Culturelle 10 billion cell capsule 1 cap PO BID insulin lispro [Humalog KwikPen Insulin] 100 unit/mL insulin pen 1 sliding scale dose subcut TID Rx Instructions: PRIOR TO MEALS loperamide [Anti-Diarrheal (loperamide)] 2 mg capsule 4 mg PO BID PRN (Reason: loose stool) atorvastatin 40 mg tablet 40 mg PO DAILY cranberry 500 mg capsule 500 mg PO DAILY Rx Instructions: administer with a meal famotidine 40 mg tablet 40 mg PO DAILY olanzapine 15 mg tablet 15 mg PO QHS oxycodone-acetaminophen [Percocet] 5-325 mg tablet 1 tab PO Q6H PRN (Reason: pain) 5 Days Qty: 20 0RF No Action PAIN PUMP (INFORMATIONAL USE ONLY-PATIENT HAS MORPHINE PUMP) Rx Instructions: basal rate 2mg. also contains baclofen Referrals / Follow Up: Massimo Jose MD [Med Staff - Active Staff] - Within 2 Weeks Mariah Atkinson MD [Primary Care Provider] - Within 1 Week Disposition Disposition (needs filled in before D/C Order can be placed): [facility] Facility Charges/Coding Visit Charges Inpatient E&M: 86339 Disch Hosp >30min
--- NOTE | 2025-02-04 13:44 | CASEMGMT ---
Patient has order for discharge. Patient discharging to [facility] under Skilled LOC. Discharge planning assist completing discharge.
--- NOTE | 2025-02-04 13:58 | CASEMGMT ---
Addendum entered by Lori Gloria 02/04/25 15:10: RN spoke with pts sister and updated her on transfer. Lori Gloria DC Planning Asst. Original Note: Discharge Planning Discharge orders, signed med list, and transport time sent to [facility]. Physicians will transport pt by wheelchair at 6p. Nursing, SW, and pt updated. Call placed to pts sister (Sintia) with no answer and vm box was full. Will attempt notification again. Lori Glroia DC Planning Asst.
[2025-02-04 15:11] VITALS: BP 131/62; PULSE 66; RESP 17; TEMP 36.7; O2SAT 96
--- NOTE | 2025-02-04 18:21 | NURSING ---
Report given to Jessee PARKER at [facility].
[2025-02-04 18:25] VITALS: BP 137/54; PULSE 68; RESP 16; TEMP 36.9; O2SAT 96
== END 2025-02-04 18:30 | DRG 917 ==
LOC: ED 01-27 00:45 → ICU 01-27 01:08 → PCU 01-27 17:23
PROVIDERS: Internal Medicine; Admitting Provider Internal Medicine; Emergency Provider Emergency Medicine; PCP Hospitalist; Visit Provider Student in an Organized Health Care Education/Training Program
DX: T40.2X1A Poisoning by other opioids, accidental (unintentional), initial encounter (principal); G92.8 Other toxic encephalopathy; S82.201A Unspecified fracture of shaft of right tibia, initial encounter for closed fracture; G81.91 Hemiplegia, unspecified affecting right dominant side; Z68.41 Body mass index [BMI] 40.0-44.9, adult; N30.00 Acute cystitis without hematuria; E11.40 Type 2 diabetes mellitus with diabetic neuropathy, unspecified; E66.01 Morbid (severe) obesity due to excess calories; B96.20 Unspecified Escherichia coli [E. coli] as the cause of diseases classified elsewhere; Z51.5 Encounter for palliative care; J44.9 Chronic obstructive pulmonary disease, unspecified; F20.9 Schizophrenia, unspecified; I10 Essential (primary) hypertension; E87.5 Hyperkalemia; E78.00 Pure hypercholesterolemia, unspecified; K59.03 Drug induced constipation; K21.9 Gastro-esophageal reflux disease without esophagitis; M47.9 Spondylosis, unspecified; Z79.4 Long term (current) use of insulin; F31.9 Bipolar disorder, unspecified; S82.401A Unspecified fracture of shaft of right fibula, initial encounter for closed fracture; W19.XXXA Unspecified fall, initial encounter; Z66 Do not resuscitate; E66.813 Obesity, class 3; Z87.891 Personal history of nicotine dependence; Z90.710 Acquired absence of both cervix and uterus; G89.4 Chronic pain syndrome; Z79.01 Long term (current) use of anticoagulants; Z97.2 Presence of dental prosthetic device (complete) (partial); Z98.51 Tubal ligation status; Z90.49 Acquired absence of other specified parts of digestive tract; Z86.73 Personal history of transient ischemic attack (TIA), and cerebral infarction without residual deficits
CPT/HCPCS: 36415; 36569; 36600; 51702; 70450; 71045; 72170; 73590; 73700; 80048; 80053; 80061; 80076; 80307; 81001; 82077; 82140; 82607; 82746; 82803; 82962; 83036; 83605; 83735; 84100; 84145; 84443; 85025; 85027; 87040; 87077; 87086; 87088; 87186; 87493; 93971; 94640; 97162; 97166; 97530; 97535; 99284; 99285; J2185; A4216; J1938

== ENCOUNTER 2025-02-17 15:42 | Inpatient (IN) | payer MEDICARE, MEDICAID, SELFPAY ==
[2025-02-17] VITALS (14 sets, daily range): BP systolic 91–129; BP diastolic 45–82; PULSE 84–96; RESP 14–30; TEMP 37–38.8; O2SAT 84–100; BMI 39.1; BMI 38.3
[2025-02-17] MEDS: 0.9% Normal Saline (1000mL) 1,000 ML 999 ML IV ×2 (16:26→21:57)
[2025-02-17 16:31] LABS: SITE Not entered; VBG BASE EXCESS 2 mmol/L (-1.0-3.5); VBG PO2 31 mmHg (25-40); VBG SO2 60 % (50-70); VBG TCO2 28 mmol/L (23-33)
[2025-02-17 16:37] LABS: Hematocrit 32.1 % (37-47); Hemoglobin 10.4 g/dL (12.0-15.0); Immature Granulocytes Count 0.140 X10^3/uL (0.0-0.0); Mean Corp Hgb Conc 32.4 g/dL (32-36); Mean Corpuscular Volume 88.4 fL (81-99); Mean Platelet Vol. 10.9 fl (6.2-12.0); NRBC Flagged by Analyzer 0 % (0-5); Platelet Count 232 K/mm3 (150-450); RBC Distribution Width CV 14.6 % (11.6-14.6); RBC Distribution Width SD 47.3 fl (35.1-43.9); Red Blood Count 3.63 M/mm3 (4.2-5.4); White Blood Count 14.8 K/mm3 (4.4-11.0)
[2025-02-17] MEDS: Ceftriaxone 2 GM in 0.9% Normal Saline (50mL MB+) 50 ML IV (16:40)
[2025-02-17 17:09] LABS: Troponin T High Sensitivity 72 ng/L (<=14)
[2025-02-17 17:21] LABS: BETA-HYDROXYBUTYRATE 0.1 mmol/L (0.0-0.3)
[2025-02-17 17:24] LABS: AST(SGOT) 125 U/L (<=31); Alanine Aminotransfer ALT/SGPT 74 U/L (<=34); Albumin, Serum 2.8 g/dL (3.4-4.8); Alkaline Phosphatase 100 U/L (35-104); Anion Gap 19 (5-15); BUN 70 mg/dL (4-19); BUN/Creat Ratio 25.0 RATIO (10-20); Calcium,Total 8.5 mg/dL (7.6-11.0); Carbon Dioxide 15.3 mmol/L (21.0-32.0); Chloride 85 mmol/L (98-108); Estimated Creatinine Clearance 23.30 ml/min (50-250); Globulin 3.6 g/dL (2.2-4.2); Glucose 520 mg/dL (70-99); Potassium 4.5 mmol/L (3.3-5.1)
[2025-02-17 17:47] LABS: Mucous, Urine 0 SEEN /hpf (<or=2+)
[2025-02-17 18:05] LABS: Color, Urine Yellow (Yellow); Glucose, Dipstick 250 mg/dl (Normal); Ketone-Dipstick Negative (Negative); Leukocyte Esterase-Dipstick 500 /ul (Negative); Nitrite-Dipstick Negative (Negative); Occult Blood-Urine 250 /ul (Negative); Protein-Dipstick 100 mg/dl (Negative); Specific Gravity, Urine 1.020 (1.002-1.030); Urine Bilirubin Dipstick Negative (Negative)
[2025-02-17 18:18] LABS: Troponin T High Sens 2 HR 48 ng/L (<=14)
[2025-02-17 18:24] LABS: Yeast-Urine 2+ /hpf (None Seen)
[2025-02-17] MEDS: Azithromycin 500 MG in 0.9% Normal Saline (250mL Bag) 250 ML 255 MG IV (18:25)
[2025-02-17 18:26] LABS: Red Blood Cells-Urine 10-25 SEEN /hpf (0-5); Squamous Epithelial Cells - UA 5-10 SEEN /hpf (5-10)
[2025-02-17 19:15] LABS: Magnesium 0.9 mg/dL (1.5-2.2)
[2025-02-17] MEDS: Insulin NPH Human 100 UNITS/ML PEN 10 UNITS SC (19:30)
[2025-02-17 19:44] LABS: Osmolality, Serum 300 mOsm/KG (280-301)
[2025-02-17] MEDS: Meropenem 1 GM in 0.9% Normal Saline (100mL MB+) 100 ML IV (20:13)
[2025-02-17] MEDS: Magnesium Sulfate 2 GM in Dextrose 5%-Water (100mL Bag) 100 ML IV ×2 (20:15→21:57)
[2025-02-17 21:56] LABS: Creatinine, Urine (random) 91.50 mg/dL (28.00-217.00)
[2025-02-17 21:56] LABS: Anion Gap 14 (5-15); BUN 72 mg/dL (4-19); BUN/Creat Ratio 27.4 RATIO (10-20); Calcium,Total 7.9 mg/dL (7.6-11.0); Carbon Dioxide 19.5 mmol/L (21.0-32.0); Chloride 92 mmol/L (98-108); Estimated Creatinine Clearance 24.54 ml/min (50-250); Glucose 434 mg/dL (70-99); Potassium 3.9 mmol/L (3.3-5.1)
[2025-02-17] MEDS: Pantoprazole Sodium 40 MG in 0.9% Normal Saline (100mL MB+) 100 ML 330 MG IV (21:58)
[2025-02-17 22:02] LABS: Troponin T High Sens 4 HR 75 ng/L (<=14)
[2025-02-17 22:07] LABS: Osmolality, Urine 338 mOsm/KG
[2025-02-17] MEDS: Heparin Injection (Vial) 5,000 UNIT/ML VIAL 5000 UNIT SC (22:12)
[2025-02-17] MEDS: Sodium Phosphate/Na Biphos 21 MMOL in 0.9% Normal Saline (250mL Bag) 250 ML 84 MMOL IV (22:48)
[2025-02-17] MEDS: Vancomycin HCl 2,000 MG in 0.9% Normal Saline (500mL Bag) 500 ML 250 MG IV (22:55)
[2025-02-17] MEDS: 0.9% Normal Saline (1000mL) 1,000 ML 100 ML IV (23:01)
[2025-02-18] VITALS (27 sets, daily range): BP systolic 73–146; BP diastolic 42–107; PULSE 80–107; RESP 11–21; TEMP 37.2–38.6; O2SAT 88–98; BMI 38.7
[2025-02-18 02:01] LABS: Anion Gap 13 (5-15); BUN 60 mg/dL (4-19); BUN/Creat Ratio 31.4 RATIO (10-20); Calcium,Total 7.4 mg/dL (7.6-11.0); Carbon Dioxide 18.1 mmol/L (21.0-32.0); Chloride 98 mmol/L (98-108); Estimated Creatinine Clearance 33.66 ml/min (50-250); Glucose 378 mg/dL (70-99); Potassium 3.3 mmol/L (3.3-5.1)
[2025-02-18 05:35] LABS: Hematocrit 25.3 % (37-47); Hemoglobin 8.6 g/dL (12.0-15.0); Immature Granulocytes Count 0.130 X10^3/uL (0.0-0.0); Mean Corp Hgb Conc 34.0 g/dL (32-36); Mean Corpuscular Volume 85.8 fL (81-99); Mean Platelet Vol. 10.3 fl (6.2-12.0); NRBC Flagged by Analyzer 0 % (0-5); Platelet Count 210 K/mm3 (150-450); RBC Distribution Width CV 14.5 % (11.6-14.6); RBC Distribution Width SD 44.9 fl (35.1-43.9); Red Blood Count 2.95 M/mm3 (4.2-5.4); White Blood Count 14.1 K/mm3 (4.4-11.0)
[2025-02-18 05:57] LABS: AST(SGOT) 73 U/L (<=31); Alanine Aminotransfer ALT/SGPT 53 U/L (<=34); Albumin, Serum 2.4 g/dL (3.4-4.8); Alkaline Phosphatase 79 U/L (35-104); Anion Gap 11 (5-15); BUN 60 mg/dL (4-19); BUN/Creat Ratio 33.7 RATIO (10-20); Calcium,Total 7.6 mg/dL (7.6-11.0); Carbon Dioxide 18.9 mmol/L (21.0-32.0); Chloride 99 mmol/L (98-108); Estimated Creatinine Clearance 36.34 ml/min (50-250); Globulin 2.6 g/dL (2.2-4.2); Glucose 331 mg/dL (70-99); Magnesium 2.3 mg/dL (1.5-2.2); Potassium 3.4 mmol/L (3.3-5.1)
[2025-02-18 06:21] LABS: Cholesterol 60 mg/dL (<=200); Low Density Lipoprotein Calc. 12 mg/dL; Triglycerides 184 mg/dL; Very Low Density Lipoprotein 37 mg/dL (5-40); cholesterol:hdl ratio screen 5.28
[2025-02-18] MEDS: 0.9% Normal Saline (1000mL) 1,000 ML 999 ML IV (07:59)
[2025-02-18] MEDS: Lidocaine 5% Patch 1 PATCH TOPICAL (09:21)
[2025-02-18] MEDS: Heparin Injection (Vial) 5,000 UNIT/ML VIAL 5000 UNIT SC ×2 (09:24→21:27)
[2025-02-18] MEDS: Meropenem 500 MG in 0.9% Normal Saline (50mL MB+) 50 ML 100 MG IV (10:49)
[2025-02-18] MEDS: Meropenem 1 GM in 0.9% Normal Saline (100mL MB+) 100 ML IV (21:20)
[2025-02-18] MEDS: Insulin Glargine-YFGN 100 UNIT/ML Pen 30 UNIT SC (21:30)
[2025-02-19] VITALS (25 sets, daily range): BP systolic 101–186; BP diastolic 42–82; PULSE 84–114; RESP 13–97; TEMP 37.2–38.1; O2SAT 15–98; BMI 39.2
[2025-02-19] MEDS: Albuterol 2.5 MG/3 ML VIAL.NEB. INHALATION (01:10)
[2025-02-19 07:59] LABS: Hematocrit 27.9 % (37-47); Hemoglobin 9.5 g/dL (12.0-15.0); Mean Corp Hgb Conc 34.1 g/dL (32-36); Mean Corpuscular Volume 86.4 fL (81-99); Mean Platelet Vol. 10.6 fl (6.2-12.0); Platelet Count 226 K/mm3 (150-450); RBC Distribution Width CV 14.1 % (11.6-14.6); RBC Distribution Width SD 44.2 fl (35.1-43.9); Red Blood Count 3.23 M/mm3 (4.2-5.4); White Blood Count 14.1 K/mm3 (4.4-11.0)
[2025-02-19 09:13] LABS: Magnesium 1.8 mg/dL (1.5-2.2)
[2025-02-19] MEDS: Insulin Glargine-YFGN 100 UNIT/ML Pen 40 UNIT SC ×2 (09:31→22:23)
[2025-02-19] MEDS: Heparin Injection (Vial) 5,000 UNIT/ML VIAL 5000 UNIT SC ×2 (09:32→22:18)
[2025-02-19] MEDS: Lidocaine 5% Patch 1 PATCH TOPICAL (09:32)
[2025-02-19 09:37] LABS: AST(SGOT) 55 U/L (<=31); Alanine Aminotransfer ALT/SGPT 65 U/L (<=34); Albumin, Serum 2.4 g/dL (3.4-4.8); Alkaline Phosphatase 115 U/L (35-104); Anion Gap 13 (5-15); BUN 29 mg/dL (4-19); BUN/Creat Ratio 35.7 RATIO (10-20); Calcium,Total 8.6 mg/dL (7.6-11.0); Carbon Dioxide 18.3 mmol/L (21.0-32.0); Chloride 100 mmol/L (98-108); Estimated Creatinine Clearance 80.31 ml/min (50-250); Globulin 3.0 g/dL (2.2-4.2); Glucose 368 mg/dL (70-99); Potassium 3.6 mmol/L (3.3-5.1)
[2025-02-19] MEDS: Meropenem 1 GM in 0.9% Normal Saline (100mL MB+) 100 ML IV ×2 (09:37→22:15)
[2025-02-19] MEDS: 0.9% Saline Lock 10 ML Syringe IV (17:42)
[2025-02-20] VITALS (11 sets, daily range): BP systolic 135–212; BP diastolic 48–80; PULSE 80–121; RESP 16–20; TEMP 36.5–37.4; O2SAT 92–97; BMI 39.2
[2025-02-20] MEDS: 0.9% Saline Lock 10 ML Syringe IV (03:00)
[2025-02-20 07:32] LABS: Hematocrit 31.0 % (37-47); Hemoglobin 10.4 g/dL (12.0-15.0); Immature Granulocytes Count 0.560 X10^3/uL (0.0-0.0); Mean Corp Hgb Conc 33.5 g/dL (32-36); Mean Corpuscular Volume 86.1 fL (81-99); Mean Platelet Vol. 10.5 fl (6.2-12.0); NRBC Flagged by Analyzer 0 % (0-5); POSITIVE MORPHOLOGY YES; Platelet Count 267 K/mm3 (150-450); RBC Distribution Width CV 14.0 % (11.6-14.6); RBC Distribution Width SD 44.5 fl (35.1-43.9); Red Blood Count 3.60 M/mm3 (4.2-5.4); White Blood Count 14.4 K/mm3 (4.4-11.0)
[2025-02-20 07:54] LABS: Anion Gap 14 (5-15); BUN 22 mg/dL (4-19); BUN/Creat Ratio 32.8 RATIO (10-20); Calcium,Total 9.6 mg/dL (7.6-11.0); Carbon Dioxide 18.1 mmol/L (21.0-32.0); Chloride 104 mmol/L (98-108); Estimated Creatinine Clearance 98.56 ml/min (50-250); Glucose 325 mg/dL (70-99); Potassium 3.2 mmol/L (3.3-5.1)
[2025-02-20 08:09] LABS: Reactive Lymphocyte 1+
[2025-02-20] MEDS: Heparin Injection (Vial) 5,000 UNIT/ML VIAL 5000 UNIT SC ×2 (08:10→21:48)
[2025-02-20] MEDS: Insulin Glargine-YFGN 100 UNIT/ML Pen 40 UNIT SC ×2 (08:10→21:48)
[2025-02-20] MEDS: Lidocaine 5% Patch 1 PATCH TOPICAL (08:11)
[2025-02-20] MEDS: Meropenem 1 GM in 0.9% Normal Saline (100mL MB+) 100 ML IV ×2 (09:43→21:26)
[2025-02-20] MEDS: Potassium Chloride Oral Tablet 20 MEQ PO ×2 (11:19→16:36)
[2025-02-20] MEDS: Calcium (Elemental) 500 MG Tablet PO (16:36)
[2025-02-20] MEDS: 0.9% Normal Saline (250mL Bag) 250 ML 15 ML IV (21:21)
[2025-02-21] VITALS (8 sets, daily range): BP systolic 131–158; BP diastolic 55–74; PULSE 71–103; RESP 15–19; TEMP 36.2–37.1; O2SAT 95–98; BMI 37.5
[2025-02-21] MEDS: Meropenem 1 GM in 0.9% Normal Saline (100mL MB+) 100 ML IV ×3 (05:30→21:21)
[2025-02-21 06:27] LABS: Hematocrit 28.1 % (37-47); Hemoglobin 9.1 g/dL (12.0-15.0); Immature Granulocytes Count 0.400 X10^3/uL (0.0-0.0); Mean Corp Hgb Conc 32.4 g/dL (32-36); Mean Corpuscular Volume 88.1 fL (81-99); Mean Platelet Vol. 10.2 fl (6.2-12.0); NRBC Flagged by Analyzer 0 % (0-5); Platelet Count 242 K/mm3 (150-450); RBC Distribution Width CV 14.3 % (11.6-14.6); RBC Distribution Width SD 46.5 fl (35.1-43.9); Red Blood Count 3.19 M/mm3 (4.2-5.4); White Blood Count 10.0 K/mm3 (4.4-11.0)
[2025-02-21 06:57] LABS: Anion Gap 8 (5-15); BUN 21 mg/dL (4-19); BUN/Creat Ratio 38.9 RATIO (10-20); Calcium,Total 9.7 mg/dL (7.6-11.0); Carbon Dioxide 23.1 mmol/L (21.0-32.0); Chloride 108 mmol/L (98-108); Estimated Creatinine Clearance 115.56 ml/min (50-250); Glucose 211 mg/dL (70-99); Potassium 3.3 mmol/L (3.3-5.1)
[2025-02-21] MEDS: Potassium Chloride Oral Tablet 20 MEQ PO ×2 (08:55→16:09)
[2025-02-21] MEDS: Calcium (Elemental) 500 MG Tablet PO ×2 (08:55→16:09)
[2025-02-21] MEDS: Insulin Glargine-YFGN 100 UNIT/ML Pen 40 UNIT SC ×2 (08:56→21:48)
[2025-02-21] MEDS: Heparin Injection (Vial) 5,000 UNIT/ML VIAL 5000 UNIT SC ×2 (08:56→21:22)
[2025-02-21] MEDS: 0.9% Saline Lock 10 ML Syringe IV ×2 (14:05→21:22)
[2025-02-22] VITALS (10 sets, daily range): BP systolic 127–191; BP diastolic 55–79; PULSE 81–99; RESP 16–20; TEMP 36.4–36.9; O2SAT 92–99; BMI 37.7
[2025-02-22] MEDS: Meropenem 1 GM in 0.9% Normal Saline (100mL MB+) 100 ML IV (05:11)
[2025-02-22 06:52] LABS: Differential Indicated MANUAL DIFF; Hematocrit 28.1 % (37-47); Hemoglobin 9.3 g/dL (12.0-15.0); Mean Corp Hgb Conc 33.1 g/dL (32-36); Mean Corpuscular Volume 87.8 fL (81-99); Mean Platelet Vol. 9.8 fl (6.2-12.0); POSITIVE COUNT YES; POSITIVE MORPHOLOGY YES; Platelet Count 279 K/mm3 (150-450); RBC Distribution Width CV 14.2 % (11.6-14.6); RBC Distribution Width SD 46.1 fl (35.1-43.9); Red Blood Count 3.20 M/mm3 (4.2-5.4); White Blood Count 9.0 K/mm3 (4.4-11.0)
[2025-02-22 07:21] LABS: Anion Gap 10 (5-15); BUN 19 mg/dL (4-19); BUN/Creat Ratio 40.6 RATIO (10-20); Calcium,Total 9.9 mg/dL (7.6-11.0); Carbon Dioxide 24.0 mmol/L (21.0-32.0); Chloride 104 mmol/L (98-108); Estimated Creatinine Clearance 135.46 ml/min (50-250); Glucose 192 mg/dL (70-99); Potassium 3.3 mmol/L (3.3-5.1)
[2025-02-22] MEDS: 0.9% Saline Lock 10 ML Syringe IV ×3 (07:40→10:32)
[2025-02-22 07:42] LABS: Neutrophil-Band 2 % (0-5)
[2025-02-22 07:43] LABS: Neutrophil-Segmented 76 % (47-70)
[2025-02-22 07:48] LABS: Red Cell Morphology NORM C+C NORMAL (NORM C&C)
[2025-02-22] MEDS: Heparin Injection (Vial) 5,000 UNIT/ML VIAL 5000 UNIT SC (09:20)
[2025-02-22] MEDS: Insulin Glargine-YFGN 100 UNIT/ML Pen 40 UNIT SC (10:14)
== END 2025-02-22 18:10 | disposition skilled nursing facility (03) | DRG 871 ==
LOC: ED 19:38 → ICU 19:51 → MS3 02-19 17:09
PROVIDERS: Internal Medicine; Admitting Provider Family Medicine; Emergency Provider Student in an Organized Health Care Education/Training Program; Visit Provider Internal Medicine
DX: A41.9 Sepsis, unspecified organism (principal); J18.9 Pneumonia, unspecified organism; G93.41 Metabolic encephalopathy; E11.00 Type 2 diabetes mellitus with hyperosmolarity without nonketotic hyperglycemic-hyperosmolar coma (NKHHC); I24.89 Other forms of acute ischemic heart disease; I69.354 Hemiplegia and hemiparesis following cerebral infarction affecting left non-dominant side; J44.0 Chronic obstructive pulmonary disease with (acute) lower respiratory infection; E87.1 Hypo-osmolality and hyponatremia; N17.9 Acute kidney failure, unspecified; N30.00 Acute cystitis without hematuria; D63.8 Anemia in other chronic diseases classified elsewhere; E83.39 Other disorders of phosphorus metabolism; Z66 Do not resuscitate; L89.159 Pressure ulcer of sacral region, unspecified stage; F25.9 Schizoaffective disorder, unspecified; E66.01 Morbid (severe) obesity due to excess calories; E11.40 Type 2 diabetes mellitus with diabetic neuropathy, unspecified; I10 Essential (primary) hypertension; E86.1 Hypovolemia; F31.9 Bipolar disorder, unspecified; L89.219 Pressure ulcer of right hip, unspecified stage; K21.9 Gastro-esophageal reflux disease without esophagitis; Z79.4 Long term (current) use of insulin; E78.00 Pure hypercholesterolemia, unspecified; E83.42 Hypomagnesemia; L89.619 Pressure ulcer of right heel, unspecified stage; E87.6 Hypokalemia; F41.9 Anxiety disorder, unspecified; D50.9 Iron deficiency anemia, unspecified; F17.290 Nicotine dependence, other tobacco product, uncomplicated; B96.20 Unspecified Escherichia coli [E. coli] as the cause of diseases classified elsewhere; B95.62 Methicillin resistant Staphylococcus aureus infection as the cause of diseases classified elsewhere; R09.02 Hypoxemia; G89.4 Chronic pain syndrome; E66.812 Obesity, class 2; Z99.3 Dependence on wheelchair; Z97.8 Presence of other specified devices; Z68.38 Body mass index [BMI] 38.0-38.9, adult; Z79.82 Long term (current) use of aspirin; Z79.891 Long term (current) use of opiate analgesic; Z79.899 Other long term (current) drug therapy
CPT/HCPCS: 36415; 70450; 71046; 76770; 80048; 80053; 80061; 81001; 82010; 82570; 82803; 82962; 83036; 83605; 83735; 83930; 83935; 84100; 84300; 84484; 85025; 85027; 87040; 87077; 87086; 87088; 87449; 87631; 87633; 87641; 93005; 93306; 93971; 94640; 94668; 94762; 97110; 97162; 97166; 97530; 97535; 97802; 99285; 99406; J2185; P9612; Q9957; A4216; C8929; J0696; J2405